=== PATIENT | female | born 1945 | race Caucasian/White ===

== ENCOUNTER → 2016-11-02 | Outpatient (CLI) | payer BC, OTHER ==
[~2016-11-02] MED LIST: ALLO300T2 PO; AMLO5TAB2 PO; ATEN50TA PO; CLON0.5T3 PO; COLC0.6T7 PO; CRAN1TAB PO; DICL100G13 TOP; ENAL10TA PO; ENXP100I SC; HYDR-3714 PO; HYDR1TAB PO; INDA1.25 PO; LEVO150T6 PO; LEVO200T30; LEVO75TA57 PO; MGX400T PO; OMEP-10 PO; OMEP20CA12 PO; ONDA-42 SL; OXYC-12 PO; POTA20PA3 PO; POTA40LI PO; SCR1T1 PO; Sodium Bicarbonate PO; TOLTA4 PO; VENL75CA55 PO; VNL75CCR; VRP240TCR PO; WARF10TA PO; WARF5TAB PO; WRF2.5T PO; WRF5T PO
--- NOTE | 2016-11-02 17:41 | Diagnostic Imaging Report ---
EXAMINATION: Two views of the right hip. INDICATION: Right hip pain. FINDINGS: No fracture, dislocation, or radiopaque foreign body seen. There are mild subchondral sclerotic changes and mild hip joint space narrowing noted. IMPRESSION: Izzj-ke-kdxnysjh right hip osteoarthritis. Dictated by: Dictated on workstation # [id number]
== END ==
LOC: RAD 16:19
PROVIDERS: ATTEND Family Medicine
DX: M25.551 Pain in right hip (principal)
CPT/HCPCS: 73502

== ENCOUNTER → 2016-12-02 | Outpatient (CLI) | payer BC, OTHER ==
--- NOTE | 2016-12-03 16:58 | Diagnostic Imaging Report ---
Bilateral screening mammogram The current study was also evaluated with a Computer Aided Detection (CAD) system. Indication: Screening. No current complaints stated on the questionnaire. COMPARISON: 04/19/15 Findings: The breasts are composed of scattered fibroglandular densities. Scattered benign-appearing calcifications seen. Allowing for technique and positional differences, no suspicious change is seen. IMPRESSION: No significant change. ACR BI-RADS Category 2: Benign findings. Result letter will be mailed to the patient. Note: At least 10% of breast cancer is not imaged by mammography. Dictated by: Dictated on workstation # [id number]
== END ==
LOC: RAD 10:23
PROVIDERS: ATTEND Family Medicine
DX: Z12.31 Encounter for screening mammogram for malignant neoplasm of breast (principal)
CPT/HCPCS: 77067

== ENCOUNTER → 2017-10-18 | Outpatient (CLI) | payer MEDICARE, OTHER ==
[~2017-10-18] MED LIST changes: +BARIUM SUSPENSION 2.1% (VANILLA SILQ) 450 ML PO ONE; +CATHETER FLUSH 10 ML SYR IV PRN; +IOHEXOL 350 MG/ML 100 ML (OMNIPAQUE 350) VIAL IV ONE; +NS 250 ML (IVPB) BAG IV ONE
[2017-10-18 12:23] LABS: CREATININE SERUM 0.96 MG/DL (0.60-1.30)
--- NOTE | 2017-10-18 13:18 | Diagnostic Imaging Report ---
PROCEDURE: CT abdomen and pelvis with contrast. TECHNIQUE: Multiple contiguous axial images were obtained through the abdomen and pelvis after administration of intravenous contrast. INDICATION: Right lower quadrant pain. COMPARISON: Comparison is made with prior CT from 08/08/2013. FINDINGS: Lung bases are clear. No discrete liver mass is identified. The gallbladder is unremarkable. The pancreas and spleen are unremarkable. No adrenal mass is detected. Upper pole left renal cyst appears stable. The aorta is nonaneurysmal. A large spigelian hernia in the right lower quadrant is again noted with fat and bowel loops extending into the subcutaneous tissues. Patient may have an ostomy as well at this location in which case this would represent a large peristomal hernia. The herniated bowel loops in the left lower quadrant noted on prior study are no longer appreciated. However, patient has developed a fluid collection in the left abdominal wall which appears mixed density. This is 7.5 cm transverse x 3. 6 cm AP. No gas within the collection is identified. Fluid collection is located near the site of previously noted spigelian hernia. No free fluid is seen. Bladder and uterus are unremarkable. No lymphadenopathy is seen. Postsurgical changes to the right hip are identified. IMPRESSION: 1. Right lower quadrant ostomy with multiple herniated bowel loops in the subcutaneous tissues, similar to prior CT from 08/08/2013. 2. Apparent surgical repair of the left lower quadrant spigelian hernia since exam from 2013. There is now circumscribed mixed-density fluid collection at the interface of the subcutaneous fat and abdominal wall musculature just lateral to the rectus muscle. This most likely represents postoperative hematoma/seroma. No internal gas is present. Remainder of the study is unremarkable. Dictated by: Dictated on workstation # [id number]
== END ==
LOC: RAD 11:50
PROVIDERS: ATTEND Family Medicine
DX: K46.9 Unspecified abdominal hernia without obstruction or gangrene (principal); Z93.8 Other artificial opening status; Z98.890 Other specified postprocedural states
CPT/HCPCS: 36415; 74177; 82565; 84520

== ENCOUNTER 2020-01-16 19:56 | Emergency (ER) | payer MEDICARE, OTHER ==
[~2020-01-16] VITALS: Ht 157 cm; Wt 95.3 kg
[~2020-01-16 19:56] MED LIST changes: -BARIUM SUSPENSION 2.1% (VANILLA SILQ) 450 ML PO ONE; -CATHETER FLUSH 10 ML SYR IV PRN; -IOHEXOL 350 MG/ML 100 ML (OMNIPAQUE 350) VIAL IV ONE; -NS 250 ML (IVPB) BAG IV ONE
--- NOTE | 2020-01-16 20:57 | ED Integumentary General ---
General Chief Complaint: Laceration Stated Complaint: R ARM LAC Source: patient Exam Limitations: no limitations History of Present Illness Date Seen by Provider: Jan 16, 2020 Time Seen by Provider: 20:56 Initial Comments 74-year-old female who presents to emergency room with complaints of a skin tear to her right dorsal surface of the forearm. She reports that she was walking out of her bathroom when she caught her arm on the door facing and caused a skin tea r around 1300 today. She states that she needs a tetanus shot. She reports cleaning the wound at the time of the injury. She has a 6 cm superficial U- shaped tear in the skin to her right forearm. Timing/Duration: this afternoon Associated Symptoms: denies symptoms Allergies and Home Medications Allergies Coded Allergies: No Known Drug Allergies (Unverified , 10/09/13) Home Medications Allopurinol 300 Mg Tab, 300 MG PO DAILY, (Reported) Clonazepam 0.5 Mg Tablet, 0.5 MG PO BID, (Reported) Cranberry Ext/C/L. Sporogenes 1 Each Tablet, 1 TAB PO DAILY, (Reported) Diclofenac Sod 100 Gm Gel, TOP DAILY PRN for PAIN, (Reported) APPLY TOPICALLY NEEDED FOR PAIN Levothyroxine Sodium 150 Mcg Tablet, 150 MCG PO DAILY, (Reported) Magnesium Oxide 400 Mg Tab, 800 MG PO TIDWM Prescribed by: BOBBY ZULTEA on 10/12/13 0808 Ondansetron Hcl 4 Mg Tab, 4 MG SL Q4H PRN for na FOR NAUSEA AND VOMITING Prescribed by: BOBBY ZULETA on 10/12/13 0808 Potassium Chloride 40 Meq/15 Ml Liqd, 40 MEQ PO DAILY@0700 Prescribed by: BOBBY ZULETA on 10/12/13 0810 Sucralfate 1 Gm Tab, 1 GM PO BID Prescribed by: BOBBY ZULETA on 10/12/13 0810 Tolterodine Tartrate 4 Mg Cap, 4 MG PO DAILY, (Reported) Venlafaxine Hcl 75 Mg Cap.sr.24h, 75 MG PO DAILY, (Reported) Verapamil Hcl 240 Mg Tab, 120 MG PO DAILY Prescribed by: BOBBY ZULETA on 10/12/13 0810 Warfarin Sod 5 Mg Tab, 5 MG PO SUN,MON,WED,FRI, (Reported) TAKES AT BEDTIME Warfarin Sodium 5 Mg Tablet, 2.5 MG PO TUES,THURS,SAT, (Reported) TAKES 1/2 (5MG) TABLET TAKES AT BEDTIME [Sodium Bicarbonate] 650 MG TAB, 1,300 MG PO BID Prescribed by: BOBBY ZULETA on 10/12/13 0810 Past Jsiroxp-Kzcoko-Zxzyse Hx Patient Social History Recent Foreign Travel: No Contact w/Someone Who Travel: No Immunizations Up To Date Date of Influenza Vaccine: Apr 21, 2013 Past Medical History Reproductive Disorders: No Female Reproductive Disorders: Denies Sexually Transmitted Disease: No HIV/AIDS: No Abdominal Hernia, Colitis Hypothyroidsim Loss of Vision: Denies Hearing Impairment: Denies Skin Adverse Reaction/Blood Tranf: No Physical Exam Vital Signs Capillary Refill : Progress/Results/Core Measures Results/Orders My Orders Orders - ANAHY MOSER DiphtDandre(Acell),Tet Adult (Boostrix (01/16/20 21:00) Departure Impression Primary Impression: Skin tear of forearm without complication Disposition: HOME, SELF-CARE Condition: Stable/Unchanged Departure-Patient Inst. Decision time for Depature: 20:58 Referrals: MEGAN MORRIS MD (PCP/Family) Primary Care Physician Patient Instructions: Wound Care Add. Discharge Instructions: Leave the dressing in place for 24 hours. Change the dressing daily after this. Watch for signs of infection such as increased redness, swelling, drainage, pain. Return back to the emergency room for worsening symptoms or concerns as needed. Follow-up primary care provider within 1 week for recheck. All discharge instructions reviewed with patient and/or family. Voiced understanding. ANAHY MOSER Jan 16, 2020 20:57
[2020-01-16] MEDS ORDERED: TETANUS,DIPTH,PERTUSS P/F (BOOSTRIX) 0.5 ML VIAL IM ONE (21:00)
[2020-01-16 21:15] VITALS: BP 141/82
--- OUTSIDE RECORDS SUMMARY | 2020-01-16 22:25 | XMS REPORT | Clinical Summary ---
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 Last Filed Vital Signs Not on file Plan of Treatment Health Maintenance Due Date Last Done Comments Hepatitis C Screen 1945 Medicare Annual Wellness 1945 Td # 1945 Colorectal Screening via 1995 Colonoscopy Mammogram Screening 1995 Zoster Vaccine# (1 of 2) 1995 Depression Screening 2010 PHQ-9 # Fall Risk Assessment # 2010 Osteoporosis Screening 2010 Pneumococcal Vaccine: 65+ 2010 04/07/1995 Years (1 of 1 - PPSV23) Influenza Vaccine (#1) 2020 03/11/2016, 03/16/2013, 04/11/2012, Additional history exists Results Not on filefrom Last 3 Months Insurance Type Payer Benefit Subscriber ID Effective Phone Address Plan / Dates Group Medicare MEDICARE MEDICARE xxxxxxxxxxx 2010- [place] PART A B [place], [place] COMMERCIAL-NONCONTRACTED BANKERS xxxxxxxxxx 2016- [employer] Present MEDICARE SUPPLEMENT Advance Directives For more information, please contact: [phone] 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
--- OUTSIDE RECORDS SUMMARY | 2020-01-16 22:25 | XMS REPORT | Encounter Summary ---
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 [place] [facility] [place] [address] [place] [address] Closed Radiology Diagnoses Right hip pain P rocedures CT Guided Sacroiliac joint injection right Reason for Visit * MRI/CAT/PET Scan (Routine) Referred By Contact Referred To Contact Status Reason Specialty Diagnoses / [place] [address] [place] [address] [facility] [place] [address] [place] [address] Closed Radiology Diagnoses Right hip pain P rocedures CT Guided Sacroiliac joint injection right Encounter Details Care Team Description [place] [address] [place] [address] [phone] Right hip pain 06/27/2018 [facility] [address] [place] [address] Social History Date Tobacco Use Types Packs/Day Years Used Never Assessed Sex Assigned at Date Recorded Not on file Industry Job Start Date Occupation Not on file Not on file Not on file Travel End Travel History Travel Start No recent travel history available. documented as of this encounter Procedure Notes * Negar Crum MD - 06/27/2018 10:05 AM BUGGY LADLE TENDER Procedures Procedure: CT guided R SI joint injection Interventional Radiologist: Negar Pyle EBL: Minimal Findings: Report to follow. Kenolog and Bupiv injected as ordered. Specimen: NA Diagnosis: Pain Electronically signed by Negar Crum MD 06/27/2018 10:05 AM Y LADLE TENDER documented in this encounter Plan of Treatment Not on filedocumented as of this encounter Procedures Comments Procedure Name Priority Date/Time Associated Diag nosis CT GUIDED SACROILIAC Routine 06/27/2018 Right hip pain JOINT INJECTION RIGHT 9:53 AM BUGGY LADLE TENDER documented in this encounter Results * CT Guided Sacroiliac joint injection right (06/27/2018 9:53 AM BUGGY LADLE TENDER) Specimen Impressions Performed At Successful CT-guided right sacroiliac joint injection as SHANDA described above. One or more of the following dose reduc tion techniques were utilized: *Automated exposure control (AEC) *Adjustment of mA and/or kV according t o patient size -Use of iterative reconstruction techni que -CT scan done according to destiney TOSCANO FARZANA/IMAGE GENTLY Narrative Performed At Patient: KAT MIRANDA Sex#: F # [id number] [place]#: [id number] Location: [facility] CT Procedure Requested: [id number] CT GUIDE D SACROILIAC JOINT INJECTION RIGHT Reason for Exam: Right hip pain Exam Ordered: 06/27/2018 090 9 Exam Date/Time: 06/27/201853 Begin exam date/time: 06/27/2018912 Reading Site: [facility] EXAMINATION: CT GUIDED SACROILIAC VIC NT INJECTION RIGHT CLINICAL INFORMATION: Right hip pain After written informed consent was obta ined, the patient was prepped and draped in a sterile manner. 1% lidocain e was utilized. With the patient prone using CT guidance, a 22-gauge nee dle was advanced into the posterior inferior right sacroiliac vic nt. 40 mg of Kenalog followed by 5 cc of .25% bupivacaine was injected. Some bupivacaine was injected as the needle was withdrawn. Procedure Note Interface, Rad Results In - 06/27/2018 4:20 PM BUGGY LADLE TENDER Patient: KAT MIRANDA Sex#: F # 1945 [place]#: [id number] Location: [facility] CT Procedure Requested: [id number] CT GUIDED SACROILIAC JOINT INJECTION RIGHT Reason for Exam: Right hip pain Exam Ordered: 06/27/2018908 Exam Date/Time: 06/27/2018952 Begin exam date/time: 06/27/2018912 Reading Site: [facility] EXAMINATION: CT GUIDED SACROILIAC JOINT INJECTION RIGHT CLINICAL INFORMATION: Right hip pain After written informed consent was obtained, the patient was prepped and draped in a sterile manner. 1% lidocaine was utilized. With the patient prone using CT guidance, a 22-gauge needle was advanced into the posterior inferior right sacroiliac joint. 40 mg of Kenalog followed by 5 cc of .25% bupivacaine was injected. S ome bupivacaine was injected as the needle was withdrawn. IMPRESSION Successful CT-guided right sacroiliac joint injection as described above. One or more of the following dose reduction techniques were utilized: *Automated exposure control (AEC) *Adjustment of mA and/or kV according to patient size -Use of iterative reconstruction techniq ue -CT scan done according to [place], or BETH MACIAS/IMAGE GENTLY Performing Organization Address City/State/Zipcode [place] documented in this encounter Visit Diagnoses Diagnosis Right hip pain Pain in joint, pelvic region and thigh documented in this encounter Administered Medications Action Date Dose Rate Site Medication Order MAR Action 06/27/2018 9:49 AM BUGGY LADLE TENDER 4 mL bupivacaine (pf) (MARCAINE) 0.25 % (2.5 Given mg/mL) injection Intrapleural, Code/trauma/sedation medication, Starting 06/27/18 at 0949 06/27/2018 9:37 AM BUGGY LADLE TENDER 8 mL Operativ e Site lidocaine (pf) (XYLOCAINE-MPF) 20 mg/mL Given (2 %) injection Code/trauma/sedation medication, Starting Wed06/27/18 at 0937 06/27/2018 9:49 AM BUGGY LADLE TENDER 40 mg triamcinolone acetonide (KENALOG-40) 40 Given mg/mL injection Code/trauma/sedation medication, Starting Wed06/27/18 at 0949, Imaging documented in this encounter
--- OUTSIDE RECORDS SUMMARY | 2020-01-16 22:25 | XMS REPORT | Clinical Summary ---
Author Author [facility] Organization [facility] Address Unknown Phone Unavailable Care Team Providers Care Pharmacy Technician Name Role Phone Sarai Almanza MD PCP Naomie Palacios [place] [id number] Edi Suero [place] [id number] Source Comments Some departments are not documenting in the electronic medical record. If you d o not see the information that you expected, contact Release of Information in [facility] [employer] Information Management department at [phone] for further assistan ce in locating additional records.[facility] Allergies No Known Allergies Medications End Date Status Medication Sig Dispensed Refills Start Date Active tolterodine LA(+) (DETROL Take 4 mg by 0 LA) 4 mg capsule mouth daily. Active clonazePAM(+) (KLONOPIN) Take 0.5 mg 0 0.5 mg rapid dissolve by mouth tablet twice daily. Active venlafaxine XR (EFFEXOR Take 75 mg by 0 XR) 75 mg capsule mouth daily. Active omeprazole DR(+) Take 20 mg by 0 (PRILOSEC) 20 mg capsule mouth daily. Active allopurinol (ZYLOPRIM) Take 300 mg 0 300 mg tablet by mouth daily. Active levothyroxine (SYNTHROID) Take 150 mcg 0 150 mcg tablet by mouth daily. Active atenolol (TENORMIN) 50 mg Take 50 mg by 0 tablet mouth daily. Active warfarin (COUMADIN) 5 mg Take 5 mg by 0 tablet mouth daily. Active verapamil SR (CALAN-SR) Take 240 mg 0 240 mg tablet by mouth daily. Active sodium bicarbonate 650 mg Take 1,300 mg 0 tablet by mouth twice daily. Active magnesium oxide (MAG-OX) Take 800 mg 0 400 mg tablet by mouth three times daily. Active sucralfate (CARAFATE) 1 Take 1 g by 0 gram tablet mouth twice daily. Active clopiDOGrel (PLAVIX) 75 Take 75 mg by 0 mg tablet mouth daily. Active atorvastatin (LIPITOR) 40 Take 40 mg by 0 mg tablet mouth daily. Active potassium chloride SR Take 30 mEq 0 (K-DUR) 10 mEq tablet by mouth daily. Active aspirin EC 81 mg tablet Take 81 mg by 0 mouth daily. Active Problems Problem Noted Date Peristomal hernia 12/06/2017 Overview: History of UC - Partial colectomy 1983 - Completion colectomy with end il eostomy 2013 - Abdominal hernia repair with bio logic mesh at site of prior LLQ end colostomy 10/18/17 CT Abd/Pelvis with left lower a bdominal wall cystic structure at site of prior colostomy hernia repair 2 014 with biologic mesh. 6cm x 6cm circumferential RLQ mesenteric defect w ith herniated mesentery and loops of small intestine no signs of bowel thick ening. Hernia defect stable in size from prior 2013 scan 12/06/17: Initial evaluation with Dr. Sandy thao [id number] para-ileostomy RLQ abdominal hernia present for >10 years, asymptomatic but progressively increasing in size, no history of bowel obstruction. BMI 38.8 plan for 40lb weight loss f/u 6 months L ast Assessment & Plan: 72 year old female with morbid obesity, factor V leiden with history of DVTs on warfarin, CAD s/p stents x2 201 4 on ASA/Plavix, GERD, HTN, history of UC s/p partial colectomy with end il eostomy , completion colectomy 1983 with end ileostomy and asymptomati c parastomal hernia repair Discussed ventral abdominal hernia repa ir and reviewed images in detail with patient. Discussed pre-operative m odifiable risk factors primarily BMI in Ms. Miranda's case, with goal pre- operative BMI of ~30 which would correlate with a weight of approximatel y 180lbs Plan: - RTC 6 months - Higher chance of operative success wi th parastomal hernia repair with decrease in BMI - 40lb weight loss goal with goal weigh t of ~180/BMI ~30 Ulcerative colitis 09/14/2013 Mediastinal mass 09/14/2013 Factor 5 Leiden mutation, heterozygous 09/14/2013 Obesity (BMI 30-39.9) 09/14/2013 Hypertension 09/14/2013 Hypothyroid 09/14/2013 Altered bowel elimination due to intestinal ostomy 0 09/14/2013 Warfarin anticoagulation 09/14/2013 Family History Medical History Relation Name Comments Heart Attack Father Asthma Neg Hx Blood Clots Neg Hx COPD Neg Hx Cancer Neg Hx Coronary Artery Disease Neg Hx Cystic Fibrosis Neg Hx DVT Neg Hx Pulmonary Embolism Neg Hx Pulmonary Fibrosis Neg Hx Pulmonary HTN Neg Hx Relation Name Status Comments Father Social History Date Tobacco Use Types Packs/Day Years Used Never Smoker Smokeless Tobacco: Never Used Drinks/Week oz/Week Comments Alcohol Use No Sex Assigned at Date Recorded Not on file Industry Job Start Date Occupation Not on file Not on file Not on file Travel End Travel History Travel Start No recent travel history available. Last Filed Vital Signs Reading Time Taken Comments Vital Sign 145/65 12/06/2017 8:08 AM CDT Blood Pressure 75 12/06/2017 8:08 AM CDT Pulse 36.5 C (97.7 F) 12/06/2017 8:08 AM CDT Temperature 14 12/06/2017 8:08 AM CDT Respiratory Rate 98% 09/18/2014 3:28 PM CDT RA Oxygen Saturation - - Inhaled Oxygen Concentration 103.1 kg (227 lb 3.2 oz) 12/06/2017 8:08 AM CDT Weight 163 cm (5' 4.17") 12/06/2017 8:08 AM CDT Height 38.79 12/06/2017 8:08 AM CDT Body Mass Index Plan of Treatment Health Maintenance Due Date Last Done Comments MEDICARE ANNUAL WELLNESS 1945 VISIT DTAP/TDAP VACCINES (1 - 1963 Tdap) HEPATITIS C SCREENING 1963 PHYSICAL (COMPREHENSIVE) 1963 EXAM BREAST CANCER SCREENING 1985 COLORECTAL CANCER 1995 SCREENING SHINGLES RECOMBINANT 1995 VACCINE (1 of 2) OSTEOPOROSIS 2010 SCREENING/MONITORING PNEUMONIA (PPSV23) 2010 VACCINE (1 of 1 - PPSV23) INFLUENZA VACCINE 03/21/2020 04/11/2012, 04/09/2011, 04/10/2010, Additional history exists Results Not on filefrom Last 3 Months Insurance Type Payer Benefit Subscriber ID Effective Phone Address Plan / Dates Group Medicare MEDICARE MEDICARE xxxxxxxxxx 2010- PART A AND Present B Indemnity [employer] xxxxxxxxxx [phone] FIDELITY Present [id number] Advance Directives 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
--- OUTSIDE RECORDS SUMMARY | 2020-01-16 22:27 | XMS REPORT | CCD ---
Author Author Kat Almanza Organization Sarai Almanza MD, 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 Name Role Phone PP Unavailable CCM Unavailable Summary Purpose Interface Exchange Insurance Providers Payer name Policy type / Coverage type Covered republican ID Effective Begin Date Effective End Date [place]PS Medicare Part B Medicare Part B [id number] 2017 Unknown [place] Medicare Part B [id number] 2017 Unknown Family history Father Diagnosis Age At Onset Hyperlipidemia Unknown Heart Attack Unknown Mother Diagnosis Age At Onset Arthritis Unknown Social History Social History Element Codes Description Effective Dates Marital status Unknown M arried Nathan 09/30/2016 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 Number of children Unknown 3 01/22/[address]: 901288368 Never smoker 01/22/[address]: 335712839 Never drinks alcohol 01/22/2015 Allergies, Adverse Reactions, Alerts Substance Reaction Codes Entered Date Inactivated Date Status * NO KNOWN DRUG ORIN RGIES Unknown 01/22/2015 No Inactive Date Active Past Medical History Illness Codes Condition Status Onset Date Resolved Date Mixed hyperlipidemia ICD-9: 272.4 ICD-10: E78.2 Active 06/09/2015 Unknown Hypothyroidism, unsp ecified ICD-9: 244.9 ICD-10: E03.9 Active 05/27/2017 Unknown 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 ICD-9: V58.61 ICD-10: Z79.01 Active 05/27/2017 Unknown Other acute sinusitis ICD-9: 461.8 ICD-10: J01.80 Active 09/02/2018 Unknown Other allergic rhinitis ICD-9: 477.8 ICD-10: J30.89 Active 04/01/2016 Unknown Essential (primary) hypertension ICD-9: 401.9 ICD-10: I10 Active 06/07/2016 Unknown Impaired fasting glu cose ICD-9: 790.21 ICD-10: R73.01 Active 05/27/2017 Unknown Gastro-esophageal re flux disease without esophagitis ICD-9: 530.81 ICD-10: K21.9 Active 01/04/2018 Unknown Localized edema ICD-9: 782.3 ICD-10: R60.0 Active 06/09/2015 Unknown Incisional hernia wi thout obstruction or 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: K43.2 Active 09/23/2017 Unknown Right lower quadrant pain ICD-9: 789.03 ICD-10: R10.31 Active 09/23/2017 Unknown Dysuria ICD-9: 788.1 ICD-10: R30.0 Active 03/05/2017 Unknown Pain in right hip ICD-9: 719.45 ICD-10: M25.551 Active 11/02/2016 Unknown Hyperglycemia, unspe cified ICD-9: 790.29 ICD-10: R73.9 Active 06/10/2015 Unknown Personal history of other endocrine, nutritional and metabolic disease ICD-9: V12.29 ICD-10: Z86.39 Active 09/18/2016 Unknown Pain in joints of le ft hand ICD-9: 719.44 ICD-10: M25.542 Active 08/20/2016 Unknown Pain in joints of ri ght hand ICD-9: 719.44 ICD-10: M25.541 Active 08/20/2016 Unknown Other fatigue ICD-9: 780.79 ICD-10: R53.83 Active 08/20/2016 Unknown Other assisted (cur rent) drug therapy ICD-9: V58.69 ICD-10: Z79.899 Active 06/07/2016 Unknown Tinnitus, bilateral ICD- 9: 388.31 ICD-10: H93.13 Active 06/07/2016 Unknown Acute laryngopharyng itis ICD-9: 465.0 ICD-10: J06.0 Active 04/01/2016 Unknown Left upper quadrant pain ICD-9: 789.02 ICD-10: R10.12 Active 01/13/2016 Unknown Body mass index (BMI ) 40.0-44.9, adult ICD-9: V85.41 ICD-10: Z68.41 Active 10/01/2015 Unknown Pain in left shoulder ICD-9: 719.41 ICD-10: M25.512 Active 10/01/2015 Unknown Pain in left leg ICD-9: 729.5 ICD-10: M79.605 Active 07/14/2015 Unknown Pain in right shoulder ICD-9: 719.41 ICD-10: M25.511 Active 06/09/2015 Unknown Hyperlipidemia Unknown Active 01/22/2015 Unknow n Hypertension Unknown Active 01/22/2015 Unknow n Hypothryroidism Unknown Active 01/22/2015 Unknow n ENCNTR LONG-RX USE NEC ICD-9: V58.69 Active 01/21/2015 Unknown ESSENTIAL HYPERTENSION ICD-9: 401.9 Active 01/21/2015 Unknown HYPERLIPIDEMIA ICD-9: 272.4 Active 01/21/2015 Unknown HYPOTHYROIDISM ICD-9: 244.9 Active 01/21/2015 Unknown Snoring ICD-9: 786.09 Active 01/21/2015 Unknow n Status post gastric surgery ICD-9: V45.89 Active 08/2014 Unknown Vitamin B12 deficiency ICD-9: 266.2 Active 01/21/2015 Unknown Problems Condition Codes Effectiv e Dates Condition Status Mixed hyperlipidemia ICD-9: 272.4 ICD-10: E78.2 06/09/2015 Active Hypothyroidism, unsp ecified ICD-9: 244.9 ICD-10: E03.9 05/27/2017 Active 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 ICD-9: V58.61 ICD-10: Z79.01 05/27/2017 Active Other acute sinusitis ICD-9: 461.8 ICD-10: J01.80 09/02/2018 Active Other allergic rhinitis ICD-9: 477.8 ICD-10: J30.89 04/01/2016 Active Essential (primary) hypertension ICD-9: 401.9 ICD-10: I10 06/07/2016 Active Impaired fasting glu cose ICD-9: 790.21 ICD-10: R73.01 05/27/2017 Active Gastro-esophageal re flux disease without esophagitis ICD-9: 530.81 ICD-10: K21.9 01/04/2018 Active Localized edema ICD-9: 782.3 ICD-10: R60.0 06/09/2015 Active Incisional hernia wi thout obstruction or 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: K43.2 09/23/2017 Active Right lower quadrant pain ICD-9: 789.03 ICD-10: R10.31 09/23/2017 Active Dysuria ICD-9: 788.1 ICD-10: R30.0 03/05/2017 Active Pain in right hip ICD-9: 719.45 ICD-10: M25.551 11/02/2016 Active Hyperglycemia, unspe cified ICD-9: 790.29 ICD-10: R73.9 06/10/2015 Active Personal history of other endocrine, nutritional and metabolic disease ICD-9: V12.29 ICD-10: Z86.39 09/18/2016 Active Pain in joints of le ft hand ICD-9: 719.44 ICD-10: M25.542 08/20/2016 Active Pain in joints of ri ght hand ICD-9: 719.44 ICD-10: M25.541 08/20/2016 Active Other fatigue ICD-9: 780.79 ICD-10: R53.83 08/20/2016 Active Other assisted (cur rent) drug therapy ICD-9: V58.69 ICD-10: Z79.899 06/07/2016 Active Tinnitus, bilateral ICD- 9: 388.31 ICD-10: H93.13 06/07/2016 Active Acute laryngopharyng itis ICD-9: 465.0 ICD-10: J06.0 04/01/2016 Active Left upper quadrant pain ICD-9: 789.02 ICD-10: R10.12 01/13/2016 Active Body mass index (BMI ) 40.0-44.9, adult ICD-9: V85.41 ICD-10: Z68.41 10/01/2015 Active Pain in left shoulder ICD-9: 719.41 ICD-10: M25.512 10/01/2015 Active Pain in left leg ICD-9: 729.5 ICD-10: M79.605 07/14/2015 Active Pain in right shoulder ICD-9: 719.41 ICD-10: M25.511 06/09/2015 Active Hyperlipidemia Unknown 01/22/2015 Active Hypertension Unknown 01/22/2015 Active Hypothryroidism Unknown 01/22/2015 Active ENCNTR LONG-RX USE NEC ICD-9: V58.69 01/21/2015 Active ESSENTIAL HYPERTENSION ICD-9: 401.9 01/21/2015 Active HYPERLIPIDEMIA ICD-9: 272.4 01/21/2015 Active HYPOTHYROIDISM ICD-9: 244.9 01/21/2015 Active Snoring ICD-9: 786.09 01/21/2015 Active Status post gastric surgery ICD-9: V45.89 01/21/2015 Active Vitamin B12 deficiency ICD-9: 266.2 01/21/2015 Active Medications Medication Codes Instruc tions Start Date Stop Date Sta tus Fill Instructions potassium chloride E R 20 mEq tablet,extended release RxNorm: 737195 Tablet(s) TAKE ONE TABLET BY MOUTH DAILY 03/07/2019 07/04/2019 Active Carafate 1 gram tablet RxNorm: 100338 TAKE ONE TABLET BY MOUTH BEFORE MEALS AN D AT BEDTIME 03/02/2019 03/27/2019 Active Plavix 75 mg tablet RxNorm: 139066 TAKE ONE TABLET BY MOUTH DAILY 02/24/2019 05/18/2020 Ac tive Coumadin 4 mg tablet RxNorm: 720316 TAKE TWO TABLETS BY MOUTH DAILY 02/13/2019 08/11/2019 Ac tive potassium chloride E R 20 mEq tablet,extended release RxNorm: 088314 Tablet(s) TAKE ONE TABLET BY MOUTH DAILY 02/13/2019 03/06/2019 Inactive omeprazole 20 mg cap sean,delayed release RxNorm: 253221 TAKE ONE CAPSULE BY M OUTH TWICE A DAY 02/03/2019 07/26/2020 Active sodium bicarbonate 6 50 mg tablet RxNorm: 166742 TAKE TWO TABLETS BY M OUTH TWICE A DAY 02/03/2019 07/02/2019 Ac tive potassium chloride E R 20 mEq tablet,extended release RxNorm: 845153 TAKE ONE TABLET BY MOUTH DAILY 01/19/2019 02/12/2019 Inactive Carafate 1 gram tablet RxNorm: 131425 TAKE ONE TABLET BY MOUTH BEFORE MEALS AN D AT BEDTIME 12/30/2018 02/19/2019 Inactive Carafate 1 gram tablet RxNorm: 182445 TAKE ONE TABLET BY MOUTH BEFORE MEALS AN D AT BEDTIME 12/12/2018 12/29/2018 Inactive mupirocin 2 % topica l ointment RxNorm: 060949 1 Application TOP TID 12/08/2018 12/17/2018 Inactive mupirocin 2 % topica l ointment RxNorm: 820071 1 Application TOP TID 12/08/2018 12/07/2018 Inactive allopurinol 300 mg t ablet RxNorm: 529112 TAKE ONE TABLET BY MO UTH DAILY 11/22/2018 03/21/2019 Ac tive clonazepam 0.5 mg ta blet RxNorm: 970548 1 Tablet(s) PO BID 11/16/2018 04/14/2019 Active Carafate 1 gram tablet RxNorm: 544052 TAKE ONE TABLET BY MOUTH BEFORE MEALS AN D AT BEDTIME 11/15/2018 12/10/2018 Inactive atenolol 100 mg tablet RxNorm: 710121 TAKE ONE TABLET BY MOUTH DAILY 10/24/2018 05/21/2019 Ac tive potassium chloride E R 20 mEq tablet,extended release RxNorm: 469524 2 Tablet(s) PO daily 10/18/2018 03/06/2019 Inactive potassium chloride E R 20 mEq tablet,extended release RxNorm: 628868 1 Tablet(s) PO daily 10/03/2018 10/17/2018 Inactive Carafate 1 gram tablet RxNorm: 252860 TAKE ONE TABLET BY MOUTH BEFORE MEALS AN D AT BEDTIME 09/26/2018 11/14/2018 Inactive prednisone 10 mg tablet RxNorm: 450680 Tablet(s) PO 09/02/2018 No Stop Date Active 60,60,50,50,40,40,30,30,20,20,10,10 Synthroid 125 mcg ta blet RxNorm: 892235 1 Tablet(s) PO daily 09/02/2018 08/27/2019 Active potassium chloride E R 20 mEq tablet,extended release RxNorm: 068897 1 Tablet(s) PO daily 09/02/2018 09/01/2018 Inactive potassium chloride E R 20 mEq tablet,extended release RxNorm: 806024 1 Tablet(s) PO daily 09/02/2018 10/02/2018 Inactive Plavix 75 mg tablet RxNorm: 688495 TAKE ONE TABLET BY MOUTH DAILY 09/02/2018 02/23/2019 In active Synthroid 125 mcg ta blet RxNorm: 548792 1 Tablet(s) PO daily 09/02/2018 09/01/2018 Inactive Keflex 500 mg capsule RxNorm: 636275 1 Capsule(s) PO TID 09/02/2018 09/08/2018 Inactive Kenalog 40 mg/mL maxine pension for injection RxNorm: 5765240 Milliliter(s) Inj 09/02/2018 09/02/2018 In active Lipitor 40 mg tablet RxNorm: 462640 TAKE ONE TABLET BY MOUTH DAILY 07/29/2018 07/23/2019 Ac tive Coumadin 1 mg tablet RxNorm: 658947 TAKE ONE TABLET BY MOUTH DAILY 07/29/2018 10/26/2018 In active Carafate 1 gram tablet RxNorm: 664368 TAKE ONE TABLET BY MOUTH BEFORE MEALS AN D AT BEDTIME 07/28/2018 09/17/2018 Inactive Coumadin 4 mg tablet RxNorm: 056745 2 Tablet(s) daily 07/11/2018 02/05/2019 Inactive Gene andre For:COUMADIN 4MG 07/22/2017 8:58:26 AM Coumadin 5 mg tablet RxNorm: 921987 Tablet(s) TAKE 1 TABLET BY MOUTH DIRE CTED 07/08/2018 01/03/2019 Inactive Generic For:COUMADIN 5MG TAB 03/21/2018 9:13:00 AM Coumadin 4 mg tablet RxNorm: 560014 Tablet(s) TAKE 1 TABLET BY MOUTH THREE T IMES PER WEEK (WEDNESDAY, WEDNESDAY AND WEDNESDAY) 07/08/2018 07/10/2018 Inactive Gene andre For:COUMADIN 4MG 07/22/2017 8:58:26 AM Coumadin 1 mg tablet RxNorm: 010234 1 Tablet(s) PO daily 07/08/2018 08/06/2018 Inactive venlafaxine ER 75 mg capsule,extended release 24 hr RxNorm: 496322 Capsule(s) TAKE 1 CAPSULE BY MOUTH ONCE DAILY 06/23/2018 06/17/2019 Active Generic For:*EFFEXOR XR 75MG 06/19/2017 12:23:45 PM sodium bicarbonate 6 50 mg tablet RxNorm: 997591 Tablet(s) TAKE 2 TABL ETS BY MOUTH TWICE DAILY 06/23/2018 12/19/2018 Inactive 12/20/2017 9:10:59 AM Coumadin 1 mg tablet RxNorm: 665429 1 Tablet(s) PO daily 06/17/2018 07/07/2018 Inactive Coumadin 1 mg tablet RxNorm: 440966 1 Tablet(s) PO daily 06/17/2018 06/16/2018 Inactive clonazepam 0.5 mg ta blet RxNorm: 216931 1 Tablet(s) PO BID 06/08/2018 11/03/2018 Inactive spironolactone 25 mg tablet RxNorm: 558528 TAKE 1 TABLET BY MOUT H EVERY DAY 05/18/2018 05/12/2019 Ac tive Generic For:*ALDACTONE 25MG 05/18/2018 8:57:50 AM Carafate 1 gram tablet RxNorm: 919609 TAKE ONE TABLET BY MOUTH BEFORE MEALS AN D AT BEDTIME 05/18/2018 07/12/2018 Inactive Generic For:CARAFATE 1GM 1 07/18/2017 8:38:28 AM Synthroid 137 mcg ta blet RxNorm: 546651 TAKE 1 TABLET BY MOUT H ONCE DAILY 05/18/2018 08/30/2018 In active Generic For:SYNTHROID 137MCG TAB 2017 8:57:54 AM allopurinol 300 mg t ablet RxNorm: 714154 TAKE 1 TABLET BY MOUT H ONCE DAILY. 04/18/2018 10/14/2018 In active Generic For:ZYLOPRIM 300 MG TABLET 03/22 9:13:47 AM Lasix 20 mg tablet RxNorm: 534537 TAKE ONE TABLET BY MOUTH DAILY 04/18/2018 08/15/2018 In active Generic For:LASIX 20MG 04/18/2018 9:13: 50 AM Carafate 1 gram tablet RxNorm: 560901 TAKE ONE TABLET BY MOUTH BEFORE MEALS AN D AT BEDTIME 04/18/2018 05/17/2018 Inactive Generic For:CARAFATE 1GM 1 9:32:51 AM Coumadin 5 mg tablet RxNorm: 930976 TAKE 1 TABLET BY MOUTH DIRECTED 03/21/2018 07/07/2018 In active Generic For:COUMADIN 5MG TAB 03/21/2018 9:13:00 AM Carafate 1 gram tablet RxNorm: 195826 TAKE ONE TABLET BY MOUTH BEFORE MEALS AN D AT BEDTIME 03/21/2018 04/17/2018 Inactive Generic For:CARAFATE 1GM 1 9:14:24 AM Carafate 1 gram tablet RxNorm: 243765 1 Tablet(s) PO AC & HS 02/17/2018 03/20/2018 Inactive atenolol 100 mg tablet RxNorm: 513185 1 Tablet(s) PO daily 02/04/2018 09/01/2018 Inactive atenolol 50 mg tablet RxNorm: 465062 1 Tablet(s) PO daily 02/03/2018 02/03/2018 Inactive omeprazole 20 mg cap sean,delayed release RxNorm: 282120 1 Capsule(s) BID 01/21/2018 01/15/2019 In active Generic For:PRILOSEC 20MG 07/22/2017 8:5 8:20 AM Carafate 1 gram tablet RxNorm: 223137 1 Tablet(s) PO AC & HS 01/21/2018 02/16/2018 Inactive Carafate 1 gram tablet RxNorm: 139219 1 Tablet(s) PO AC & HS 01/18/2018 01/20/2018 Inactive Carafate 1 gram tablet RxNorm: 128806 1 Tablet(s) PO AC & HS 01/18/2018 02/27/2018 Inactive Carafate 1 gram tablet RxNorm: 367770 1 Tablet(s) PO AC & HS TAKE ONE TABLET B Y MOUTH TWICE DAILY 01/18/2018 05/17/2018 Inactive Generic For:CARAFATE 1GM 0 12/20/2017 9:10:56 AM omeprazole 20 mg cap sean,delayed release RxNorm: 412435 Capsule(s) TAKE 1 CAP SEAN BY MOUTH EVERY DAY 01/17/2018 01/20/2018 Inactive Generic For:PRILOSEC 20MG 0 07/22/2017 8:58:20 AM omeprazole 20 mg cap sean,delayed release RxNorm: 978421 Capsule(s) TAKE 1 CAP SEAN BY MOUTH EVERY DAY 01/14/2018 01/16/2018 Inactive Generic For:PRILOSEC 20MG 07/22/2017 8:58:20 AM clonazepam 0.5 mg ta blet RxNorm: 402337 1 Tablet(s) PO BID 01/07/2018 06/05/2018 Inactive Plavix 75 mg tablet RxNorm: 089646 1 Tablet(s) PO daily 01/07/2018 07/05/2018 Inactive Carafate 1 gram tablet RxNorm: 873114 1 Tablet(s) PO AC & HS 01/04/2018 01/17/2018 Inactive Lasix 20 mg tablet RxNorm: 119309 TAKE ONE TABLET BY MOUTH DAILY 12/20/2017 04/17/2018 In active Generic For:LASIX 20MG 12/20/2017 9:11: 03 AM sodium bicarbonate 6 50 mg tablet RxNorm: 074453 TAKE 2 TABLETS BY JAVON TH TWICE DAILY 12/20/2017 06/17/2018 In active 12/20/2017 9:10:59 AM Carafate 1 gram tablet RxNorm: 206417 TAKE ONE TABLET BY MOUTH TWICE DAILY 12/20/2017 01/17/2018 In active Generic For:CARAFATE 1GM 12/20/2017 9:1 0:56 AM Synthroid 137 mcg ta blet RxNorm: 587001 TAKE 1 TABLET BY MOUT H ONCE DAILY 11/19/2017 05/17/2018 In active Generic For:SYNTHROID 137MCG TAB 2017 8:58:04 AM Detrol LA 4 mg capsu le,extended release RxNorm: 957623 TAKE 1 CAPSULE BY JAVON TH ONCE DAILY 10/20/2017 04/13/2018 Inactive Generic For:DETROL LA 4MG C AP 10/20/2017 9:01:56 AM allopurinol 300 mg t ablet RxNorm: 836676 TAKE 1 TABLET BY MOUT H ONCE DAILY. 10/20/2017 04/17/2018 In active Generic For:ZYLOPRIM 300 MG TABLET 07/2017 9:01:59 AM Coumadin 5 mg tablet RxNorm: 041846 1 Tablet(s) PO UD 10/01/2017 03/20/2018 Inactive cyclobenzaprine 5 mg tablet RxNorm: 241056 1 Tablet(s) PO TID as needed myscle spasm 09/23/2017 10/12/2017 Inactive Lipitor 40 mg tablet RxNorm: 676718 TAKE 1 TABLET BY MOUTH ONCE DAILY 09/20/2017 07/28/2018 In active Generic For:LIPITOR 40MG 09/20/2017 8:5 6:04 AM atenolol 100 mg tablet RxNorm: 721736 1 Tablet(s) PO daily 08/30/2017 02/03/2018 Inactive atenolol 50 mg tablet RxNorm: 227623 1 Tablet(s) PO daily 08/30/2017 08/30/2017 Inactive Lovenox 30 mg/0.3 mL subcutaneous syringe RxNorm: 043441 0.3 Milliliter(s) SQ Q12H 08/24/2017 09/06/2017 In active Lasix 20 mg tablet RxNorm: 084075 TAKE ONE TABLET BY MOUTH DAILY 08/23/2017 12/19/2017 In active Generic For:LASIX 20MG 08/21/2017 9:04: 27 AM Synthroid 137 mcg ta blet RxNorm: 703462 TAKE 1 TABLET BY MOUT H ONCE DAILY 08/23/2017 11/18/2017 In active Generic For:SYNTHROID 137MCG TAB 2017 9:04:30 AM Lovenox 30 mg/0.3 mL subcutaneous syringe RxNorm: 546348 0.3 Milliliter(s) SQ Q12H 08/10/2017 08/23/2017 In active clonazepam 0.5 mg ta blet RxNorm: 191959 1 Tablet(s) PO BID 08/04/2017 12/30/2017 Inactive omeprazole 20 mg cap sean,delayed release RxNorm: 631501 TAKE 1 CAPSULE BY JAVON TH EVERY DAY 07/22/2017 01/13/2018 Inactive Generic For:PRILOSEC 20MG 07/22/2017 8: 58:20 AM Coumadin 4 mg tablet RxNorm: 092890 TAKE 1 TABLET BY MOUTH THREE TIMES PER [place] (WEDNESDAY, WEDNESDAY AND WEDNESDAY) 07/22/2017 10/03/2018 Inactive Generic For:COUMADIN 4MG 07/22/2017 8:58:26 AM Coumadin 4 mg tablet RxNorm: 363041 TAKE 1 TABLET BY MOUTH THREE TIMES PER [place] (WEDNESDAY, WEDNESDAY AND WEDNESDAY) 07/22/2017 02/16/2018 Inactive Generic For:COUMADIN 4MG 07/22/2017 8:58:26 AM sodium bicarbonate 6 50 mg tablet RxNorm: 052792 TAKE 2 TABLETS BY JAVON TH TWICE DAILY 06/22/2017 12/18/2017 In active 06/19/2017 12:23:30 PM venlafaxine ER 75 mg capsule,extended release 24 hr RxNorm: 030516 TAKE 1 CAPSULE BY MOUTH ONCE DAILY 06/22/2017 06/16/2018 Inactive Generic For:*EFFEXOR XR 75M G 06/19/2017 12:23:45 PM Coumadin 5 mg tablet RxNorm: 224225 1 Tablet(s) PO UD 06/01/2017 09/30/2017 Inactive Keflex 500 mg capsule RxNorm: 454770 1 Capsule(s) PO TID 05/27/2017 06/02/2017 Inactive Synthroid 137 mcg ta blet RxNorm: 202719 TAKE 1 TABLET BY MOUT H ONCE DAILY 05/24/2017 08/21/2017 In active Generic For:SYNTHROID 137MCG TAB 2016 8:55:59 AM Carafate 1 gram tablet RxNorm: 653531 TAKE ONE TABLET BY MOUTH TWICE DAILY 05/24/2017 12/19/2017 In active Generic For:CARAFATE 1GM 05/24/2017 8:5 5:54 AM spironolactone 25 mg tablet RxNorm: 756035 1 Tablet(s) PO daily 05/24/2017 05/17/2018 Inactive Detrol LA 4 mg capsu le,extended release RxNorm: 554091 1 Capsule(s) PO daily TAKE 1 CAPSULE BY MOUTH ONCE DAILY 05/10/2017 10/19/2017 Inactive Generic For:DETROL LA 4MG CAP 02/19/2017 2:36:00 PM Lasix 20 mg tablet RxNorm: 350596 TAKE ONE TABLET BY MOUTH DAILY 04/23/2017 08/20/2017 In active Generic For:LASIX 20MG 04/23/2017 9:04: 01 AM Coumadin 4 mg tablet RxNorm: 459479 TAKE 1 TABLET BY MOUTH THREE TIMES PER [place] (WEDNESDAY, WEDNESDAY AND WEDNESDAY) 04/23/2017 07/21/2017 Inactive Generic For:COUMADIN 4MG 04/23/2017 9:04:05 AM allopurinol 300 mg t ablet RxNorm: 599580 TAKE 1 TABLET BY MOUT H ONCE DAILY. 04/23/2017 10/19/2017 In active Generic For:ZYLOPRIM 300 MG TABLET 08/2016 9:03:57 AM potassium chloride 2 0 mEq/15 mL oral liquid RxNorm: 988420 Milliliter(s) 30 Milliliter(s) (40mEq) PO daily 03/24/2017 07/21/2017 Inactive Lovenox 30 mg/0.3 mL subcutaneous syringe RxNorm: 343819 0.3 Milliliter(s) SQ Q12H 03/22/2017 03/26/2017 In active Lovenox 30 mg/0.3 mL subcutaneous syringe RxNorm: 704506 0.3 Milliliter(s) SQ Q12H 03/19/2017 03/20/2017 In active Lovenox 30 mg/0.3 mL subcutaneous syringe RxNorm: 102691 0.3 Milliliter(s) SQ Q12H 03/16/2017 03/18/2017 In active clonazepam 0.5 mg ta blet RxNorm: 050559 1 Tablet(s) PO BID 03/02/2017 10/03/2018 Inactive Lovenox 30 mg/0.3 mL subcutaneous syringe RxNorm: 278770 1 injection SQ BID do NOT take the night time dose the day before surgery, or the morning dose the day of surgery 03/01/2017 03/07/2017 Inactive Lovenox 30 mg/0.3 mL subcutaneous syringe RxNorm: 458523 1 injection SQ BID 03/01/2017 02/28/2017 In active Detrol LA 4 mg capsu le,extended release RxNorm: 623728 TAKE 1 CAPSULE BY JAVON TH ONCE DAILY 02/19/2017 05/09/2017 Inactive Generic For:DETROL LA 4MG C AP 02/19/2017 2:36:00 PM hydrocodone 5 mg-humberto taminophen 325 mg tablet RxNorm: 130436 1-2 Tablet(s) PO Q6 P RN 02/04/2017 No Stop Date Active Zetia 10 mg tablet RxNorm: 516282 TAKE 1 TABLET BY MOUTH DAILY 01/25/2017 04/13/2018 Inactive 01/23/2017 9:03:48 AM omeprazole 20 mg cap sean,delayed release RxNorm: 421319 TAKE 1 CAPSULE BY JAVON TH EVERY DAY 01/25/2017 07/21/2017 Inactive Generic For:PRILOSEC 20MG 01/23/2017 9: 03:45 AM Coumadin 4 mg tablet RxNorm: 543792 TAKE 1 TABLET BY MOUTH THREE TIMES PER [place] (WEDNESDAY, WEDNESDAY AND WEDNESDAY) 01/25/2017 04/22/2017 Inactive Generic For:COUMADIN 4MG 01/23/2017 9:03:51 AM sodium bicarbonate 6 50 mg tablet RxNorm: 163279 TAKE 2 TABLETS BY JAVON TH TWICE DAILY 12/24/2016 06/21/2017 In active 12/24/2016 9:09:27 AM Lasix 20 mg tablet RxNorm: 046968 1 Tablet(s) PO daily 12/24/2016 04/22/2017 Inactive Synthroid 137 mcg ta blet RxNorm: 952237 TAKE 1 TABLET BY MOUT H ONCE DAILY 11/24/2016 05/22/2017 In active Generic For:SYNTHROID 137MCG TAB 2016 9:04:37 AM Coumadin 4 mg tablet RxNorm: 538317 TAKE 1 TABLET BY MOUTH THREE TIMES PER [place] (WEDNESDAY, WEDNESDAY AND WEDNESDAY) 11/24/2016 01/22/2017 Inactive Generic For:COUMADIN 4MG 11/24/2016 9:04:41 AM hydrocodone 5 mg-humberto taminophen 325 mg tablet RxNorm: 762082 1-2 Tablet(s) PO Q6 P RN 11/17/2016 02/03/2017 In active Carafate 1 gram tablet RxNorm: 112691 TAKE ONE TABLET BY MOUTH TWICE DAILY 10/27/2016 05/23/2017 In active Generic For:CARAFATE 1GM 10/26/2016 8:3 9:42 AM allopurinol 300 mg t ablet RxNorm: 545445 Tablet(s) TAKE 1 TABL ET BY MOUTH ONCE DAILY. 10/26/2016 04/22/2017 Inactive Lipitor 40 mg tablet RxNorm: 201439 1 Tablet(s) PO daily 09/25/2016 09/19/2017 Inactive Coumadin 4 mg tablet RxNorm: 291817 TAKE 1 TABLET BY MOUTH THREE TIMES PER [place] (WEDNESDAY, WEDNESDAY AND WEDNESDAY) 09/25/2016 11/23/2016 Inactive Generic For:COUMADIN 4MG 09/25/2016 8:55:58 AM Zetia 10 mg tablet RxNorm: 251770 1 Tablet(s) PO daily 09/25/2016 01/22/2017 Inactive gave 1 month of samples clonazepam 0.5 mg ta blet RxNorm: 263367 1 Tablet(s) PO BID 09/21/2016 10/03/2018 Inactive Lasix 20 mg tablet RxNorm: 222987 1 Tablet(s) PO daily 09/15/2016 12/23/2016 Inactive potassium chloride 2 0 mEq/15 mL oral liquid RxNorm: 531040 Milliliter(s) 30 Milliliter(s) (40mEq) PO daily 09/15/2016 01/12/2017 Inactive Lasix 20 mg tablet RxNorm: 516598 2 Tablet(s) PO daily 09/10/2016 09/12/2016 Inactive Lasix 20 mg tablet RxNorm: 012520 1 Tablet(s) PO daily 08/28/2016 08/30/2016 Inactive Lasix 20 mg tablet RxNorm: 684701 1 Tablet(s) PO daily 08/20/2016 08/22/2016 Inactive Detrol LA 4 mg capsu le,extended release RxNorm: 222352 TAKE 1 CAPSULE BY JAVON TH ONCE DAILY 07/27/2016 02/18/2017 Inactive Generic For:DETROL LA 4MG C AP 07/27/2016 9:08:27 AM Coumadin 4 mg tablet RxNorm: 334732 1 Tablet(s) PO 3 x week wed and sun 07/27/2016 09/24/2016 In active omeprazole 20 mg cap sean,delayed release RxNorm: 791953 Capsule(s) PO TAKE 1 CAPSULE BY MOUTH ONCE DAILY 07/27/2016 01/22/2017 Inactive venlafaxine ER 75 mg capsule,extended release 24 hr RxNorm: 757302 1 Capsule(s) PO daily 06/29/2016 06/21/2017 Inactive sodium bicarbonate 6 50 mg tablet RxNorm: 957011 TAKE 2 TABLETS BY JAVON TWICE DAILY 06/29/2016 12/23/2016 In active 06/27/2016 9:05:39 AM Coumadin 4 mg tablet RxNorm: 477160 1 Tablet(s) PO 3 x week wed and sun 06/09/2016 06/08/2016 In active Coumadin 4 mg tablet RxNorm: 849817 1 Tablet(s) PO 3 x week wed and sun 06/09/2016 07/26/2016 In active Zetia 10 mg tablet RxNorm: 246715 1 Tablet(s) PO daily 06/09/2016 06/08/2016 Inactive gave 1 month of samples Zetia 10 mg tablet RxNorm: 055288 1 Tablet(s) PO daily 06/09/2016 09/24/2016 Inactive gave 1 month of samples Effexor 75 mg tablet RxNorm: 556871 1 Tablet(s) PO daily 06/08/2016 06/28/2016 Inactive spironolactone 25 mg tablet RxNorm: 647647 1 Tablet(s) PO daily 06/08/2016 05/23/2017 Inactive Synthroid 137 mcg ta blet RxNorm: 113544 1 Tablet(s) PO daily 05/07/2016 11/02/2016 Inactive allopurinol 300 mg t ablet RxNorm: 256726 Tablet(s) TAKE 1 TABL ET BY MOUTH ONCE DAILY. 04/28/2016 10/24/2016 Inactive clonazepam 0.5 mg ta blet RxNorm: 369727 1 Tablet(s) PO BID 04/20/2016 10/03/2018 Inactive Flonase Allergy Reli ef 50 mcg/actuation nasal spray,suspension RxNorm: 7262148 1 [place] NASAL BID 04/02/2016 No Stop Date Active Zithromax Z-Thomas 250 mg tablet RxNorm: 202549 Tablet(s) PO 04/02/2016 08/27/2016 Inactive cetirizine 10 mg tablet RxNorm: 0323471 1 Tablet(s) PO daily 04/02/2016 05/01/2016 Inactive Carafate 1 gram tablet RxNorm: 134835 Tablet(s) TAKE 1 TABLET TWICE A DAY FOR 30 DAYS 03/30/2016 10/25/2016 Inactive Generic For:CARAFATE 1GM 02/08/2015 12:3 6:39 PM Plavix 75 mg tablet RxNorm: 390485 1 Tablet(s) PO daily 03/11/2016 09/06/2016 Inactive sodium bicarbonate 6 50 mg tablet RxNorm: 822426 Tablet(s) 2 Tablet(s) PO BID 02/28/2016 06/26/2016 In active omeprazole 20 mg cap sean,delayed release RxNorm: 667530 Capsule(s) PO TAKE 1 CAPSULE BY MOUTH ONCE DAILY 01/31/2016 07/26/2016 Inactive Fish Oil 1,000 mg ca psule RxNorm: 1 Capsule(s) PO BID 01/14/2016 No Stop Date Active Synthroid 137 mcg ta blet RxNorm: 134765 1 Tablet(s) PO daily 01/14/2016 05/06/2016 Inactive Detrol LA 4 mg capsu le,extended release RxNorm: 447188 TAKE 1 CAPSULE BY JAVON TH ONCE DAILY 12/30/2015 07/26/2016 Inactive Generic For:DETROL LA 4MG C AP 12/30/2015 9:11:01 AM potassium chloride 2 0 mEq/15 mL oral liquid RxNorm: 380555 Milliliter(s) 30 Milliliter(s) (40mEq) PO daily 12/02/2015 03/30/2016 Inactive sodium bicarbonate 6 50 mg tablet RxNorm: 693130 Tablet(s) 2 Tablet(s) PO BID 10/31/2015 02/27/2016 In active Lipitor 40 mg tablet RxNorm: 822559 1 Tablet(s) PO daily 10/09/2015 09/24/2016 Inactive sodium bicarbonate 6 50 mg tablet RxNorm: 185437 2 Tablet(s) PO BID 10/01/2015 10/30/2015 Inactive allopurinol 300 mg t ablet RxNorm: 956276 TAKE 1 TABLET BY MOUT H ONCE DAILY. 10/01/2015 04/27/2016 In active Generic For:ZYLOPRIM 300 MG TABLET 09/19 9:21:15 AM clonazepam 0.5 mg ta blet RxNorm: 619066 1 Tablet(s) PO BID 09/30/2015 04/19/2016 Inactive Coumadin 5 mg tablet RxNorm: 224863 1 Tablet(s) PO daily 09/27/2015 05/31/2017 Inactive Generic For:COUMADIN 5MG TAB N O T I C E PRESCRIPTION PREVIOUSLY AUTHORIZED BY DOCTOR:BOBBY ZULETA Synthroid 125 mcg ta blet RxNorm: 987477 1 Tablet(s) PO daily 09/27/2015 09/26/2015 Inactive Synthroid 125 mcg ta blet RxNorm: 043351 1 Tablet(s) PO daily 09/27/2015 01/13/2016 Inactive Carafate 1 gram tablet RxNorm: 892949 Tablet(s) TAKE 1 TABLET TWICE A DAY FOR 30 DAYS 09/02/2015 03/29/2016 Inactive Generic For:CARAFATE 1GM 02/08/2015 12:3 6:39 PM sodium bicarbonate 6 50 mg tablet RxNorm: 549829 2 Tablet(s) PO BID 09/02/2015 09/30/2015 Inactive Prilosec 20 mg capsu le,delayed release RxNorm: 242938 TAKE 1 CAPSULE BY JAVON TH ONCE DAILY 08/02/2015 01/28/2016 Inactive Generic For:PRILOSEC 20MG 08/02/2015 10:03:09 AM N O T I C E PRESCRIPTION PREVIOUSLY AUTHORIZED BY DOCTOR:BOBBY ZULETA Zyrtec 10 mg capsule RxNorm: 6041975 1 Capsule(s) PO daily 07/15/2015 08/13/2015 Inactive Keflex 500 mg capsule RxNorm: 790956 1 Capsule(s) PO TID 07/15/2015 07/21/2015 Inactive cetirizine 10 mg cap sean RxNorm: 9147311 1 Capsule(s) PO daily 07/15/2015 08/13/2015 Inactive hydrocodone 5 mg-humberto taminophen 325 mg tablet RxNorm: 366375 1-2 Tablet(s) PO Q6 P RN 06/10/2015 11/16/2016 In active sodium bicarbonate 6 50 mg tablet RxNorm: 194118 2 Tablet(s) PO BID 06/03/2015 08/31/2015 Inactive Detrol LA 4 mg capsu le,extended release RxNorm: 334360 TAKE 1 CAPSULE BY JAVON TH ONCE DAILY 06/03/2015 12/29/2015 Inactive Generic For:DETROL LA 4MG C AP N O T I C E PRESCRIPTION PREVIOUSLY AUTHORIZED BY DOCTOR:BOBBY ZULETA atenolol 50 mg tablet RxNorm: 998491 1 Tablet(s) PO daily TAKE 1 TABLET BY MO UTH DAILY 05/07/2015 08/23/2017 Inactive Generic For:TENORMIN 50MG 05/04/2015 9:07:22 AM spironolactone 25 mg tablet RxNorm: 781739 1 Tablet(s) PO daily 05/06/2015 06/07/2016 Inactive venlafaxine ER 75 mg capsule,extended release 24 hr RxNorm: 315103 1 Capsule(s) PO daily 05/04/2015 06/28/2016 Inactive atenolol 50 mg tablet RxNorm: 620887 TAKE 1 TABLET BY MOUTH DAILY 05/04/2015 05/06/2015 Inactive Generic For:TENORMIN 50MG 05/04/2015 9: 07:22 AM Synthroid 150 mcg ta blet RxNorm: 603948 TAKE 1 TABLET BY MOUT H ONCE DAILY. 04/05/2015 09/26/2015 In active Generic For:SYNTHROID 150MCG TAB 2014 4:45:40 PM N O T I C E PRESCRIPTION PREVIOUSLY AUTHORIZED BY DOCTOR:BOBBY ZULETA Effexor 75 mg tablet RxNorm: 041197 1 Tablet(s) PO daily 04/05/2015 07/03/2015 Inactive Coumadin 5 mg tablet RxNorm: 374673 TAKE 1 AND 1/2 TABLETS BY MOUTH ONCE MYRANDA LY 04/04/2015 09/26/2015 In active Generic For:COUMADIN 5MG TAB N O T I C E PRESCRIPTION PREVIOUSLY AUTHORIZED BY DOCTOR:BOBBY ZULETA clonazepam 0.5 mg ta blet RxNorm: 442965 1 Tablet(s) PO BID 03/13/2015 11/05/2015 Inactive sodium bicarbonate 6 50 mg tablet RxNorm: 799478 2 Tablet(s) PO BID 03/08/2015 06/02/2015 Inactive allopurinol 300 mg t ablet RxNorm: 764546 TAKE 1 TABLET BY MOUT H ONCE DAILY. 03/05/2015 09/30/2015 In active N O T I C E PRESCRIPTION PREVIOUSLY A UTHORIZED BY DOCTOR:BOBBY ZULETA Plavix 75 mg tablet RxNorm: 750830 1 Tablet(s) PO daily 02/12/2015 09/09/2015 Inactive clonazepam 0.5 mg ta blet RxNorm: 592986 1 Tablet(s) PO BID 02/11/2015 03/11/2015 Inactive Carafate 1 gram tablet RxNorm: 381874 TAKE 1 TABLET TWICE A DAY FOR 30 DAYS 02/08/2015 02/07/2015 In active Generic For:CARAFATE 1GM 02/08/2015 12:3 6:39 PM Carafate 1 gram tablet RxNorm: 212816 Tablet(s) TAKE 1 TABLET TWICE A DAY FOR 30 DAYS 02/08/2015 09/01/2015 Inactive Generic For:CARAFATE 1GM 02/08/2015 12:3 6:39 PM potassium chloride 2 0 mEq/15 mL oral liquid RxNorm: 063558 30 Milliliter(s) (40m Eq) PO daily 02/05/2015 12/01/2015 Inactive atenolol 50 mg tablet RxNorm: 691706 1 Tablet(s) PO daily 02/04/2015 05/03/2015 Inactive [SAVINGS FOR NON-COVERED DRUGS -- BIN:00 3585, PCN: [id number], Group: XXXXX, ID# XXXXXXX, Questions: . THIS IS NOT INSURANCE.] potassium chloride 2 0 mEq/15 mL oral liquid RxNorm: 866328 30 Milliliter(s) (40m Eq) PO daily 01/08/2015 02/04/2015 Inactive potassium chloride 2 0 mEq/15 mL oral liquid RxNorm: 782467 30 Milliliter(s) (40m Eq) PO daily 12/07/2014 01/07/2015 Inactive atenolol 50 mg tablet RxNorm: 524762 1 Tablet(s) PO daily 11/09/2014 11/08/2014 Inactive atenolol 50 mg tablet RxNorm: 161380 1 Tablet(s) PO daily 11/09/2014 02/03/2015 Inactive [SAVINGS FOR NON-COVERED DRUGS -- BIN:3584, PCN: ASPROD1, Group: XXXXX, ID# XXXXXXX, Questions: . THIS IS NOT INSURANCE.] Voltaren 1 % topical gel RxNorm: 106975 TOP No St art Date Active verapamil ER (HS) 24 0 mg tablet,extended release 24 hr RxNorm: 483434 1 Tablet(s) PO daily No Start Date Active aspirin 81 mg tablet RxNorm: 736791 1 Tablet(s) PO daily No Start Date Active Zofran 4 mg tablet RxNorm: 965201 1 Tablet(s) PO PRN No Start Date Active B12 1000 mcg RxNorm: 1 Tablet(s) PO daily No Start Date Active magnesium oxide 400 mg capsule RxNorm: 248150 2 Capsule(s) PO BID No Start Date Active Synthroid 150 mcg ta blet RxNorm: 850035 1 Tablet(s) PO daily No Start Date 04/04/2015 Inactive Coumadin 5 mg tablet RxNorm: 026020 1 Tablet(s) PO daily No Start Date 04/03/2015 Inactive cranberry 1,000 mg c apsule RxNorm: 236630 1 Capsule(s) PO daily No Start Date 04/13/2018 Inactive allopurinol 300 mg t ablet RxNorm: 750326 1 Tablet(s) PO daily No Start Date 03/04/2015 Inactive Prilosec 20 mg capsu le,delayed release RxNorm: 936138 1 Capsule(s) PO PRN No Start Date 08/01/2015 Inactive potassium chloride 2 0 mEq/15 mL oral liquid RxNorm: 874182 30 Milliliter(s) (40m Eq) PO daily No Start Date 12/06/2014 Inactive atenolol 50 mg tablet RxNorm: 512397 1 Tablet(s) PO daily No Start Date 08/29/2017 Inactive Lipitor 40 mg tablet RxNorm: 227293 1 Tablet(s) PO daily No Start Date 09/19/2017 Inactive Effexor 75 mg tablet RxNorm: 877772 1 Tablet(s) PO daily No Start Date 04/04/2015 Inactive Carafate 1 gram tablet RxNorm: 900560 1 Tablet(s) PO BID No Start Date 02/07/2015 Inactive clonazepam 0.5 mg ta blet RxNorm: 078428 1 Tablet(s) PO BID No Start Date 02/10/2015 Inactive Plavix 75 mg tablet RxNorm: 331909 1 Tablet(s) PO daily No Start Date 02/11/2015 Inactive sodium bicarbonate 6 50 mg tablet RxNorm: 237989 2 Tablet(s) PO BID No Start Date 09/01/2015 Inactive Lovenox 30 mg/0.3 mL subcutaneous syringe RxNorm: 215007 0.3 Milliliter(s) SQ Q12H No Start Date 03/15/2017 Inactive Fish Oil 1,000 mg ca psule RxNorm: 1 Capsule(s) PO daily No Start Date 01/13/2016 Inactive Detrol LA 4 mg capsu le,extended release RxNorm: 794422 1 Capsule(s) PO daily No Start Date 06/02/2015 Inactive Medication Administered Medication Codes Instruc tions Start Date Status Kenalog 40 mg/mL suspension for injection RxNorm: 6758333 Milliliter 09/02/2018 No longer Active Immunizations Vaccine Codes Date Status SHINGARIX CVX: 121 03/23 completed Assessments Condition Codes Effectiv e Dates Mixed hyperlipidemia ICD-10: E78.2 ICD-9: 272.4 10/05/2018 Other acute sinusitis ICD-10: J01.80 ICD-9: 461.8 09/02/2018 Other allergic rhinitis ICD-10: J30. 89 ICD-9: 477.8 09/02/2018 Hypothyroidism, unspecified ICD-10: E03.9 ICD-9: 244.9 04/14/2018 Essential (primary) hypertension ICD -10: I10 ICD-9: 401.9 04/14/2018 nursing home (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 ICD-10: Z79.01 ICD-9: V58.61 04/14/2018 Impaired fasting glucose ICD-10: R73 .01 ICD-9: 790.21 04/14/2018 Gastro-esophageal reflux disease without esophagitis ICD-10: K21.9 ICD-9: 530.81 01/18/2018 Localized edema ICD-10: R60.0 ICD-9: 782.3 01/18/2018 Right lower quadrant pain ICD-10: R1 0.31 ICD-9: 789.03 09/23/2017 Incisional hernia without obstruction or gangrene ICD-10: K43.2 ICD-9: 553.21 09/23/2017 Dysuria ICD-10: R30.0 ICD-9: 788.1 03/05/2017 Pain in right hip ICD-10: M25.551 ICD-9: 719.45 02/24/2017 Hyperglycemia, unspecified ICD-10: R 73.9 ICD-9: 790.29 10/08/2016 Personal history of other endocrine, nut ritional and metabolic disease ICD-10: Z86.39 ICD-9: V12.29 09/18/2016 Pain in joints of right hand ICD-10: M25.541 ICD-9: 719.44 09/10/2016 Pain in joints of left hand ICD-10: M25.542 ICD-9: 719.44 09/10/2016 Other fatigue ICD-10: R53.83 ICD-9: 780.79 08/20/2016 Other assisted (current) drug therapy ICD-10: Z79.899 ICD-9: V58.69 06/08/2016 Tinnitus, bilateral ICD-10: H93.13 ICD-9: 388.31 06/08/2016 Acute laryngopharyngitis ICD-10: J06 .0 ICD-9: 465.0 04/02/2016 Left upper quadrant pain ICD-10: R10 .12 ICD-9: 789.02 01/14/2016 Body mass index (BMI) 40.0-44.9, adult ICD-10: Z68.41 ICD-9: V85.41 10/02/2015 Pain in left shoulder ICD-10: M25.51 2 ICD-9: 719.41 10/02/2015 Pain in left leg ICD-10: M79.605 ICD-9: 729.5 07/15/2015 Pain in right shoulder ICD-10: M25.5 11 ICD-9: 719.41 06/10/2015 Snoring ICD-9: 786.09 Status post gastric surgery ICD-9: V45.89 01/22/2015 ESSENTIAL HYPERTENSION ICD-9: 401.9 01/22/2015 ENCNTR LONG-RX USE NEC ICD-9: V58.69 01/22/2015 HYPERLIPIDEMIA ICD-9: 272.4 01/22/2015 Vitamin B12 deficiency ICD-9: 266.2 01/22/2015 HYPOTHYROIDISM ICD-9: 244.9 01/22/2015 Reason For Visit Reason For Visit Effective Dates Notes cough 09/02/2018 hypertension 04/14/2018 hypertension 01/18/2018 hypertension 01/04/2018 hypertension 09/23/2017 hypertension 05/27/2017 pre-op/surgery consult 02/24/2017 hypertension 11/02/2016 hypertension 09/30/2016 edema 09/10/2016 medication follow up 08/20/2016 medication follow up 06/08/2016 cough 04/02/2016 abdominal pain 01/14/2016 shoulder pain 10/02/2015 edema 07/15/2015 weight gain/obesity 06/10/2015 hernia 01/22/2015 right sided abdomen with previous ileostomy Results Observation Observation Code Item Item Code Result Date Pt Htn0406 PT 27.4 seconds 01/27/2019 Pt Qks1666 INR 2.6 01/27/2019 Pt Snn3008 Low Intensity - 1.5-2.0 01/27/2019 Pt Ipz7062 Mod intensity - 2.0-3.0 01/27/2019 Pt Hhz4593 Hi intensity - 3.0-4.0 01/27/2019 Pt Hyu3102 PT 21.8 seconds 12/15/2018 Pt Wmg0542 INR 2.0 12/15/2018 Pt Vxx3399 Low Intensity - 1.5-2.0 12/15/2018 Pt Gcr9597 Mod intensity - 2.0-3.0 12/15/2018 Pt Qyt5404 Hi intensity - 3.0-4.0 12/15/2018 Pt Aqb0138 PT 24.4 seconds 12/09/2018 Pt Lup9432 INR 2.2 12/09/2018 Pt Xqn1249 Low Intensity - 1.5-2.0 12/09/2018 Pt Tni2533 Mod intensity - 2.0-3.0 12/09/2018 Pt Nij9687 Hi intensity - 3.0-4.0 12/09/2018 Pt Wfr9475 PT 35.0 seconds 12/01/2018 Pt Fuv9758 INR 3.5 12/01/2018 Pt Bjv3683 Low Intensity - 1.5-2.0 12/01/2018 Pt Izb9072 Mod intensity - 2.0-3.0 12/01/2018 Pt Zek7303 Hi intensity - 3.0-4.0 12/01/2018 Pt Ios3059 PT 26.3 seconds 10/13/2018 Pt Bbw0789 INR 2.5 10/13/2018 Pt Tfa9071 Low Intensity - 1.5-2.0 10/13/2018 Pt Jgd7488 Mod intensity - 2.0-3.0 10/13/2018 Pt Mtl6329 Hi intensity - 3.0-4.0 10/13/2018 Lipid Ord30 CHOL 180 mg/dL 10/07/2018 Lipid Ord30 HDL 74.0 mg/dl 10/07/2018 Lipid Ord30 TRIG 111 mg/dL 10/07/2018 Lipid Ord30 LDL 84 mg/dL 10/07/2018 Lipid Ord30 C/HDL 2.4 Ratio 10/07/2018 Pt Gqp2233 PT 38.1 seconds 10/07/2018 Pt Cxw0255 INR 3.9 10/07/2018 Pt Wtw6259 Low Intensity - 1.5-2.0 10/07/2018 Pt Hoj7842 Mod intensity - 2.0-3.0 10/07/2018 Pt Dye4461 Hi intensity - 3.0-4.0 10/07/2018 Tsh Ord6 TSH (3rd IS) 0.43 uIU/mL 09/02/2018 Comp Metabolic Akd205 NA 136 mEq/L 09/02/2018 Comp Metabolic Pdk506 K 4.1 mEq/L 09/02/2018 Comp Metabolic Pog005 CL 103 mEq/L 09/02/2018 Comp Metabolic Smz727 CO2 20.0 mEq/L 09/02/2018 Comp Metabolic Xxh041 AN ION GAP 17 09/02/2018 Comp Metabolic Avw986 GL UCOSE 124 mg/dL 09/02/2018 Comp Metabolic Tlz125 Cr eat 1.0 mg/dL 09/02/2018 Comp Metabolic Qps848 eG FR 57 ml/min/1.73m2 09/02 Comp Metabolic Dbl865 BUN 24 mg/dL 09/02/2018 Comp Metabolic Nif207 B/ C Ratio 23.8 Ratio 09/02/2018 Comp Metabolic Owk082 CA LCIUM 9.5 mg/dL 09/02/2018 Comp Metabolic Soq117 AL K PHOS 64 U/L 09/02/2018 Comp Metabolic Peh682 T(SGOT) 24 U/L 09/02/2018 Comp Metabolic Css019 AL T(SGPT) 23 U/L 09/02/2018 Comp Metabolic Ybt091 BI LI T 0.5 mg/dL 09/02/2018 Comp Metabolic Ofu107 AL BUMIN 4.2 g/dL 09/02/2018 Comp Metabolic Wwq525 TP RO 7.4 g/dL 09/02/2018 Comp Metabolic Tfe790 GL OB 3.2 g/dL 09/02/2018 Comp Metabolic Eso299 A/ G Ratio 1.3 Ratio 09/02/2018 Comp Metabolic Ahr985 Os mo 277 mOsmo 09/02/2018 Pt Cku5266 PT 40.6 seconds 09/02/2018 Pt Ujd8144 INR 4.2 09/02/2018 Pt Ejn9567 Low Intensity - 1.5-2.0 09/02/2018 Pt Poi0693 Mod intensity - 2.0-3.0 09/02/2018 Pt Mnb3432 Hi intensity - 3.0-4.0 09/02/2018 Free T4 Awz198 FREE T4 1.51 ng/dL 09/02/2018 Magnesium Ord90 Mag 1.8 mg/dL 09/02/2018 Pt Aor4253 PT 29.2 seconds 08/05/2018 Pt Yhx7816 INR 2.8 08/05/2018 Pt Cky8873 Low Intensity - 1.5-2.0 08/05/2018 Pt Tvj8657 Mod intensity - 2.0-3.0 08/05/2018 Pt Gef3363 Hi intensity - 3.0-4.0 08/05/2018 Pt Wki7768 PT 30.2 seconds 07/25/2018 Pt Tao2750 INR 2.9 07/25/2018 Pt Mhd5528 Low Intensity - 1.5-2.0 07/25/2018 Pt Beb9046 Mod intensity - 2.0-3.0 07/25/2018 Pt Gce0034 Hi intensity - 3.0-4.0 07/25/2018 Pt Fws9220 PT 25.2 seconds 07/19/2018 Pt Kgn1863 INR 2.3 07/19/2018 Pt Qee5711 Low Intensity - 1.5-2.0 07/19/2018 Pt Uxt0085 Mod intensity - 2.0-3.0 07/19/2018 Pt Nvo5328 Hi intensity - 3.0-4.0 07/19/2018 Pt Zxa9482 PT 17.4 seconds 07/15/2018 Pt Qgg3643 INR 1.5 07/15/2018 Pt Tkq1561 Low Intensity - 1.5-2.0 07/15/2018 Pt Fvv7949 Mod intensity - 2.0-3.0 07/15/2018 Pt Xbq0743 Hi intensity - 3.0-4.0 07/15/2018 Pt Yxa0252 PT 17.8 seconds 07/08/2018 Pt Kir7871 INR 1.5 07/08/2018 Pt Qla1623 Low Intensity - 1.5-2.0 07/08/2018 Pt Zlv7876 Mod intensity - 2.0-3.0 07/08/2018 Pt Uij2782 Hi intensity - 3.0-4.0 07/08/2018 Pt Edx5612 PT 19.2 seconds 07/01/2018 Pt Cgb3411 INR 1.7 07/01/2018 Pt Xii8243 Low Intensity - 1.5-2.0 07/01/2018 Pt Kjy6254 Mod intensity - 2.0-3.0 07/01/2018 Pt Cvh7759 Hi intensity - 3.0-4.0 07/01/2018 Pt Nka6428 PT 17.4 seconds 06/23/2018 Pt Xbq1901 INR 1.5 06/23/2018 Pt Vtg7396 Low Intensity - 1.5-2.0 06/23/2018 Pt Gda5278 Mod intensity - 2.0-3.0 06/23/2018 Pt Ezl6609 Hi intensity - 3.0-4.0 06/23/2018 Pt Tbt2760 PT 18.4 seconds 06/17/2018 Pt Xjc0650 INR 1.6 06/17/2018 Pt Ptn0766 Low Intensity - 1.5-2.0 06/17/2018 Pt Ozd4515 Mod intensity - 2.0-3.0 06/17/2018 Pt Xqi5355 Hi intensity - 3.0-4.0 06/17/2018 Sed Rate Ord21 ESR 5 mm/hr 06/08/2018 Cbc With Differential Ord2 WBC 5.45 K/ul 06/08/2018 Cbc With Differential Ord2 RBC 4.93 M/ul 06/08/2018 Cbc With Differential Ord2 HGB 15.0 g/dl 06/08/2018 Cbc With Differential Ord2 HCT 43.8 % 06/08/2018 Cbc With Differential Ord2 Neut% 65.1 % 06/08/2018 Cbc With Differential Ord2 MCV 88.8 fl 06/08/2018 Cbc With Differential Ord2 Lymph% 22.0 % 06/08/2018 Cbc With Differential Ord2 MCH 30.4 pg 06/08/2018 Cbc With Differential Ord2 [place]% 9.4 % 06/08/2018 Cbc With Differential Ord2 MCHC 34.2 pg 06/08/2018 Cbc With Differential Ord2 Eos% 2.4 % 06/08/2018 Cbc With Differential Ord2 PLT 197 K/ul 06/08/2018 Cbc With Differential Ord2 Baso% 1.1 % 06/08/2018 Cbc With Differential Ord2 RDW 14.8 % 06/08/2018 Cbc With Differential Ord2 Neut ABS# 3.55 K/ul 06/08/2018 Cbc With Differential Ord2 Lymph ABS# 1.20 K/ul 06/08/2018 Cbc With Differential Ord2 [place] ABS# 0.5 K/ul 06/08/2018 Cbc With Differential Ord2 Eos ABS# 0.1 K/ul 06/08/2018 Cbc With Differential Ord2 Baso ABS# 0.1 K/ul 06/08/2018 C-Reactive Protein Qnt Crqnt CRP 0.1 mg/dl 06/08/2018 Pt Fmz2013 PT 17.6 seconds 06/08/2018 Pt Tqa2528 INR 1.5 06/08/2018 Pt Bgy9033 Low Intensity - 1.5-2.0 06/08/2018 Pt Gdr7110 Mod intensity - 2.0-3.0 06/08/2018 Pt Avb8711 Hi intensity - 3.0-4.0 06/08/2018 Pt Fbe0066 PT 16.8 seconds 05/10/2018 Pt Irb1020 INR 1.4 05/10/2018 Pt Vvp8471 Low Intensity - 1.5-2.0 05/10/2018 Pt Oad1688 Mod intensity - 2.0-3.0 05/10/2018 Pt Mqn4912 Hi intensity - 3.0-4.0 05/10/2018 Pt Siz9681 PT 16.7 seconds 05/04/2018 Pt Sis1401 INR 1.4 05/04/2018 Pt Nuk8418 Low Intensity - 1.5-2.0 05/04/2018 Pt Znw1755 Mod intensity - 2.0-3.0 05/04/2018 Pt Qsk6073 Hi intensity - 3.0-4.0 05/04/2018 Free T4 Iax017 FREE T4 1.09 ng/dL 04/14/2018 Tsh Ord6 TSH (3rd IS) 2.36 uIU/mL 04/14/2018 Pt Uni8436 PT 20.3 seconds 04/14/2018 Pt Jyk8562 INR 1.8 04/14/2018 Pt Ubh2637 Low Intensity - 1.5-2.0 04/14/2018 Pt Cog3406 Mod intensity - 2.0-3.0 04/14/2018 Pt Caa8164 Hi intensity - 3.0-4.0 04/14/2018 Lipid Ord30 CHOL 149 mg/dL 04/14/2018 Lipid Ord30 HDL 49.0 mg/dl 04/14/2018 Lipid Ord30 TRIG 161 mg/dL 04/14/2018 Lipid Ord30 LDL 68 mg/dL 04/14/2018 Lipid Ord30 C/HDL 3.0 Ratio 04/14/2018 %Hba1C Muy416 % HbA1c 22855-5 5.9 % 04/14/2018 %Hba1C Ttb259 Gluc Ave 123 mg/dL 04/14/2018 Comp Metabolic Ncc780 NA 140 mEq/L 04/14/2018 Comp Metabolic Vqf869 K 4.1 mEq/L 04/14/2018 Comp Metabolic Ikc060 CL 105 mEq/L 04/14/2018 Comp Metabolic Tbd353 CO2 28.0 mEq/L 04/14/2018 Comp Metabolic Zdh426 AN ION GAP 11 04/14/2018 Comp Metabolic Opb572 GL UCOSE 112 mg/dL 04/14/2018 Comp Metabolic Zze398 Cr eat 1.0 mg/dL 04/14/2018 Comp Metabolic Wbs169 eG FR 58 ml/min/1.73m2 04/14 Comp Metabolic Cie366 BUN 20 mg/dL 04/14/2018 Comp Metabolic Wbn522 B/ C Ratio 20.2 Ratio 04/14/2018 Comp Metabolic Ygb691 CA LCIUM 10.0 mg/dL 04/14/2018 Comp Metabolic Djz013 AL K PHOS 51 U/L 04/14/2018 Comp Metabolic Ija106 T(SGOT) 24 U/L 04/14/2018 Comp Metabolic Hxm828 AL T(SGPT) 21 U/L 04/14/2018 Comp Metabolic Jtt411 BI LI T 0.8 mg/dL 04/14/2018 Comp Metabolic Zvh725 AL BUMIN 4.2 g/dL 04/14/2018 Comp Metabolic Wqj635 TP RO 7.1 g/dL 04/14/2018 Comp Metabolic Kfo369 GL OB 2.9 g/dL 04/14/2018 Comp Metabolic Lxb391 A/ G Ratio 1.5 Ratio 04/14/2018 Comp Metabolic Bzw959 Os mo 283 mOsmo 04/14/2018 Cbc With Differential Ord2 WBC 4.83 K/ul 04/14/2018 Cbc With Differential Ord2 RBC 4.86 M/ul 04/14/2018 Cbc With Differential Ord2 HGB 14.9 g/dl 04/14/2018 Cbc With Differential Ord2 HCT 43.9 % 04/14/2018 Cbc With Differential Ord2 Neut% 60.7 % 04/14/2018 Cbc With Differential Ord2 MCV 90.3 fl 04/14/2018 Cbc With Differential Ord2 Lymph% 24.4 % 04/14/2018 Cbc With Differential Ord2 MCH 30.7 pg 04/14/2018 Cbc With Differential Ord2 [place]% 10.6 % 04/14/2018 Cbc With Differential Ord2 MCHC 33.9 pg 04/14/2018 Cbc With Differential Ord2 Eos% 3.1 % 04/14/2018 Cbc With Differential Ord2 PLT 189 K/ul 04/14/2018 Cbc With Differential Ord2 Baso% 1.2 % 04/14/2018 Cbc With Differential Ord2 RDW 14.6 % 04/14/2018 Cbc With Differential Ord2 Neut ABS# 2.93 K/ul 04/14/2018 Cbc With Differential Ord2 Lymph ABS# 1.18 K/ul 04/14/2018 Cbc With Differential Ord2 [place] ABS# 0.5 K/ul 04/14/2018 Cbc With Differential Ord2 Eos ABS# 0.2 K/ul 04/14/2018 Cbc With Differential Ord2 Baso ABS# 0.1 K/ul 04/14/2018 Pt Vfn6766 PT 29.3 seconds 02/11/2018 Pt Ivd6931 INR 2.8 02/11/2018 Pt Bhc4859 Low Intensity - 1.5-2.0 02/11/2018 Pt Dwr5747 Mod intensity - 2.0-3.0 02/11/2018 Pt Mcw4104 Hi intensity - 3.0-4.0 02/11/2018 Comp Metabolic Mtr870 NA 141 mEq/L 01/05/2018 Comp Metabolic Blo215 K 3.7 mEq/L 01/05/2018 Comp Metabolic Zha323 CL 102 mEq/L 01/05/2018 Comp Metabolic Wjl406 CO2 29.0 mEq/L 01/05/2018 Comp Metabolic Cfn182 AN ION GAP 14 01/05/2018 Comp Metabolic Ykq723 GL UCOSE 136 mg/dL 01/05/2018 Comp Metabolic Ktq266 Cr eat 1.0 mg/dL 01/05/2018 Comp Metabolic Uzj533 eG FR 61 ml/min/1.73m2 01/05 Comp Metabolic Aqq212 BUN 22 mg/dL 01/05/2018 Comp Metabolic Mhe648 B/ C Ratio 22.9 Ratio 01/05/2018 Comp Metabolic Gzp861 CA LCIUM 9.7 mg/dL 01/05/2018 Comp Metabolic Zil107 AL K PHOS 57 U/L 01/05/2018 Comp Metabolic Sxt246 T(SGOT) 21 U/L 01/05/2018 Comp Metabolic Ayg639 AL T(SGPT) 19 U/L 01/05/2018 Comp Metabolic Fyn929 BI LI T 0.9 mg/dL 01/05/2018 Comp Metabolic Mld618 AL BUMIN 4.1 g/dL 01/05/2018 Comp Metabolic Hxf150 TP RO 7.1 g/dL 01/05/2018 Comp Metabolic Viy505 GL OB 3.0 g/dL 01/05/2018 Comp Metabolic Oee324 A/ G Ratio 1.4 Ratio 01/05/2018 Comp Metabolic Dce974 Os mo 287 mOsmo 01/05/2018 Free T4 Bem616 FREE T4 1.05 ng/dL 01/05/2018 %Hba1C Bgp935 % HbA1c 12316-8 6.0 % 01/05/2018 %Hba1C Qtz196 Gluc Ave 126 mg/dL 01/05/2018 Cbc With Differential Ord2 WBC 4.66 K/ul 01/05/2018 Cbc With Differential Ord2 RBC 4.74 M/ul 01/05/2018 Cbc With Differential Ord2 HGB 14.5 g/dl 01/05/2018 Cbc With Differential Ord2 HCT 43.2 % 01/05/2018 Cbc With Differential Ord2 Neut% 56.7 % 01/05/2018 Cbc With Differential Ord2 MCV 91.1 fl 01/05/2018 Cbc With Differential Ord2 Lymph% 27.3 % 01/05/2018 Cbc With Differential Ord2 MCH 30.6 pg 01/05/2018 Cbc With Differential Ord2 [place]% 10.5 % 01/05/2018 Cbc With Differential Ord2 MCHC 33.6 pg 01/05/2018 Cbc With Differential Ord2 Eos% 3.6 % 01/05/2018 Cbc With Differential Ord2 PLT 177 K/ul 01/05/2018 Cbc With Differential Ord2 Baso% 1.9 % 01/05/2018 Cbc With Differential Ord2 RDW 14.5 % 01/05/2018 Cbc With Differential Ord2 Neut ABS# 2.64 K/ul 01/05/2018 Cbc With Differential Ord2 Lymph ABS# 1.27 K/ul 01/05/2018 Cbc With Differential Ord2 [place] ABS# 0.5 K/ul 01/05/2018 Cbc With Differential Ord2 Eos ABS# 0.2 K/ul 01/05/2018 Cbc With Differential Ord2 Baso ABS# 0.1 K/ul 01/05/2018 Pt Uvo2603 PT 20.7 seconds 01/05/2018 Pt Tnv8887 INR 1.8 01/05/2018 Pt Tjj1804 Low Intensity - 1.5-2.0 01/05/2018 Pt Syn2668 Mod intensity - 2.0-3.0 01/05/2018 Pt Kzs1367 Hi intensity - 3.0-4.0 01/05/2018 Tsh Ord6 TSH (3rd IS) 2.34 uIU/mL 01/05/2018 Lipid Ord30 CHOL 156 mg/dL 01/05/2018 Lipid Ord30 HDL 48.0 mg/dl 01/05/2018 Lipid Ord30 TRIG 207 mg/dL 01/05/2018 Lipid Ord30 LDL 67 mg/dL 01/05/2018 Lipid Ord30 C/HDL 3.3 Ratio 01/05/2018 Pt Lve7759 PT 28.3 seconds 11/26/2017 Pt Zvg0362 INR 2.6 11/26/2017 Pt Edv7023 Low Intensity - 1.5-2.0 11/26/2017 Pt Rzs1914 Mod intensity - 2.0-3.0 11/26/2017 Pt Qos0768 Hi intensity - 3.0-4.0 11/26/2017 Pt Pmy8936 PT 36.5 seconds 11/19/2017 Pt Tol8832 INR 3.6 11/19/2017 Pt Wkb1987 Low Intensity - 1.5-2.0 11/19/2017 Pt Vji7422 Mod intensity - 2.0-3.0 11/19/2017 Pt Cch6031 Hi intensity - 3.0-4.0 11/19/2017 Pt Tyc6541 PT 22.9 seconds 10/15/2017 Pt Brp2537 INR 2.0 10/15/2017 Pt Quy6142 Low Intensity - 1.5-2.0 10/15/2017 Pt Kjw1498 Mod intensity - 2.0-3.0 10/15/2017 Pt Mul4389 Hi intensity - 3.0-4.0 10/15/2017 Pt Tgf9423 PT 25.9 seconds 10/01/2017 Pt Zgz0862 INR 2.4 10/01/2017 Pt Efi8578 Low Intensity - 1.5-2.0 10/01/2017 Pt Ecn8114 Mod intensity - 2.0-3.0 10/01/2017 Pt Mwl8207 Hi intensity - 3.0-4.0 10/01/2017 Pt Msi7395 PT 20.6 seconds 09/24/2017 Pt Nok1523 INR 1.8 09/24/2017 Pt Vie6921 Low Intensity - 1.5-2.0 09/24/2017 [address]4372 Mod intensity - 2.0-3.0 09/24/2017 Pt Pfq6571 Hi intensity - 3.0-4.0 09/24/2017 Pt Vps1647 PT 21.0 seconds 09/15/2017 Pt Ebr4449 INR 1.8 09/15/2017 Pt Pzc5342 Low Intensity - 1.5-2.0 09/15/2017 Pt Ofs0777 Mod intensity - 2.0-3.0 09/15/2017 Pt Aoa3507 Hi intensity - 3.0-4.0 09/15/2017 Pt Gzr4914 PT 19.0 seconds 09/03/2017 Pt Wmt2165 INR 1.6 09/03/2017 Pt Odj7441 Low Intensity - 1.5-2.0 09/03/2017 Pt Csu4025 Mod intensity - 2.0-3.0 09/03/2017 Pt Sye7118 Hi intensity - 3.0-4.0 09/03/2017 Pt Djk7677 PT 17.6 seconds 08/23/2017 Pt Wiv3792 INR 1.5 08/23/2017 Pt Apq6392 Low Intensity - 1.5-2.0 08/23/2017 Pt Cyu6778 Mod intensity - 2.0-3.0 08/23/2017 Pt Mdz6707 Hi intensity - 3.0-4.0 08/23/2017 Pt Knb8109 PT 12.7 seconds 08/20/2017 Pt Bgx8373 INR 1.0 08/20/2017 Pt Kgf1442 Low Intensity - 1.5-2.0 08/20/2017 Pt Rih5910 Mod intensity - 2.0-3.0 08/20/2017 Pt Qtn2445 Hi intensity - 3.0-4.0 08/20/2017 Pt Vrq2505 PT 12.9 seconds 08/17/2017 Pt Lnn4448 INR 1.0 08/17/2017 Pt Mwo5454 Low Intensity - 1.5-2.0 08/17/2017 Pt Zzt3851 Mod intensity - 2.0-3.0 08/17/2017 Pt Npa6241 Hi intensity - 3.0-4.0 08/17/2017 Pt Ten1994 PT 18.5 seconds 08/10/2017 Pt Sxa3753 INR 1.6 08/10/2017 Pt Whh9918 Low Intensity - 1.5-2.0 08/10/2017 Pt Uvo8855 Mod intensity - 2.0-3.0 08/10/2017 Pt Jgk7492 Hi intensity - 3.0-4.0 08/10/2017 Tsh Ord6 hTSH II 2.08 uIU/mL 05/27/2017 Cbc With Differential Ord2 WBC 7.53 K/ul 05/27/2017 Cbc With Differential Ord2 RBC 4.60 M/ul 05/27/2017 Cbc With Differential Ord2 HGB 13.5 g/dl 05/27/2017 Cbc With Differential Ord2 HCT 40.4 % 05/27/2017 Cbc With Differential Ord2 Neut% 72.9 % 05/27/2017 Cbc With Differential Ord2 MCV 87.8 fl 05/27/2017 Cbc With Differential Ord2 Lymph% 14.7 % 05/27/2017 Cbc With Differential Ord2 MCH 29.3 pg 05/27/2017 Cbc With Differential Ord2 [place]% 8.1 % 05/27/2017 Cbc With Differential Ord2 MCHC 33.4 pg 05/27/2017 Cbc With Differential Ord2 Eos% 3.2 % 05/27/2017 Cbc With Differential Ord2 PLT 239 K/ul 05/27/2017 Cbc With Differential Ord2 Baso% 1.1 % 05/27/2017 Cbc With Differential Ord2 RDW 14.4 % 05/27/2017 Cbc With Differential Ord2 Neut ABS# 5.49 K/ul 05/27/2017 Cbc With Differential Ord2 Lymph ABS# 1.11 K/ul 05/27/2017 Cbc With Differential Ord2 [place] ABS# 0.6 K/ul 05/27/2017 Cbc With Differential Ord2 Eos ABS# 0.2 K/ul 05/27/2017 Cbc With Differential Ord2 Baso ABS# 0.1 K/ul 05/27/2017 Pt Ete0112 PT 28.2 seconds 05/27/2017 Pt Vbf6285 INR 2.6 05/27/2017 Pt Poc8430 Low Intensity - 1.5-2.0 05/27/2017 Pt Sbk5440 Mod intensity - 2.0-3.0 05/27/2017 Pt Vzg1639 Hi intensity - 3.0-4.0 05/27/2017 Lipid Ord30 CHOL 167 mg/dL 05/27/2017 Lipid Ord30 HDL 49.0 mg/dl 05/27/2017 Lipid Ord30 TRIG 347 mg/dL 05/27/2017 Lipid Ord30 LDL 49 mg/dL 05/27/2017 Lipid Ord30 C/HDL 3.4 Ratio 05/27/2017 Magnesium Ord90 Mag 1.4 mg/dL 05/27/2017 %Hba1C Oxc501 % HbA1c 09787-5 5.9 % 05/27/2017 %Hba1C Mut224 Gluc Ave 123 mg/dL 05/27/2017 Comp Metabolic Apb473 NA 138 mEq/L 05/27/2017 Comp Metabolic Fkx282 K 4.1 mEq/L 05/27/2017 Comp Metabolic Hjl121 CL 101 mEq/L 05/27/2017 Comp Metabolic Stu751 CO2 31.0 mEq/L 05/27/2017 Comp Metabolic Ywi312 AN ION GAP 10 05/27/2017 Comp Metabolic Yjr986 GL UCOSE 117 mg/dL 05/27/2017 Comp Metabolic Eli780 Cr eat 0.9 mg/dL 05/27/2017 Comp Metabolic Ehs517 eG FR 62 ml/min/1.73m2 05/27 Comp Metabolic Fku122 BUN 25 mg/dL 05/27/2017 Comp Metabolic Zwo473 B/ C Ratio 26.6 Ratio 05/27/2017 Comp Metabolic Nyt580 CA LCIUM 9.5 mg/dL 05/27/2017 Comp Metabolic Qmx966 AL K PHOS 73 U/L 05/27/2017 Comp Metabolic Juz126 T(SGOT) 18 U/L 05/27/2017 Comp Metabolic Ljw601 AL T(SGPT) 12 U/L 05/27/2017 Comp Metabolic Bmy843 BI LI T 0.5 mg/dL 05/27/2017 Comp Metabolic Sby898 AL BUMIN 4.1 g/dL 05/27/2017 Comp Metabolic Dos228 TP RO 7.1 g/dL 05/27/2017 Comp Metabolic Svo045 GL OB 3.0 g/dL 05/27/2017 Comp Metabolic Mxc690 A/ G Ratio 1.3 Ratio 05/27/2017 Comp Metabolic Yii107 Os mo 281 mOsmo 05/27/2017 Free T4 Mbq319 FREE T4 0.91 ng/dL 05/27/2017 Pt Mvz3775 PT 29.2 seconds 04/16/2017 Pt Mlr9652 INR 2.7 04/16/2017 Pt Bzv3291 Low Intensity - 1.5-2.0 04/16/2017 Pt Qkk5150 Mod intensity - 2.0-3.0 04/16/2017 Pt Fak1851 Hi intensity - 3.0-4.0 04/16/2017 Pt Bjb9386 PT 30.7 seconds 03/31/2017 Pt Geu8738 INR 2.9 03/31/2017 Pt Hsk0377 Low Intensity - 1.5-2.0 03/31/2017 Pt Dpq7771 Mod intensity - 2.0-3.0 03/31/2017 Pt Fno8935 Hi intensity - 3.0-4.0 03/31/2017 Pt Uib7034 PT 21.3 seconds 03/26/2017 Pt Utt3124 INR 1.9 03/26/2017 Pt Vaj8554 Low Intensity - 1.5-2.0 03/26/2017 Pt Gvp3680 Mod intensity - 2.0-3.0 03/26/2017 Pt Lbk1559 Hi intensity - 3.0-4.0 03/26/2017 Pt Eyy7639 PT 19.8 seconds 03/22/2017 Pt Btj2463 INR 1.7 03/22/2017 Pt Ihv6698 Low Intensity - 1.5-2.0 03/22/2017 Pt Vpt2338 Mod intensity - 2.0-3.0 03/22/2017 Pt Rei6910 Hi intensity - 3.0-4.0 03/22/2017 Pt Iqn1974 PT 15.6 seconds 03/19/2017 Pt Fwg9011 INR 1.3 03/19/2017 Pt Hah0739 Low Intensity - 1.5-2.0 03/19/2017 Pt Ont7963 Mod intensity - 2.0-3.0 03/19/2017 Pt Ycv9979 Hi intensity - 3.0-4.0 03/19/2017 Pt Dra7293 PT 13.7 seconds 03/15/2017 Pt Vzf0235 INR 1.1 03/15/2017 Pt Elp8695 Low Intensity - 1.5-2.0 03/15/2017 Pt Faf3416 Mod intensity - 2.0-3.0 03/15/2017 Pt Puc9708 Hi intensity - 3.0-4.0 03/15/2017 Pt Wms9919 PT 25.8 seconds 01/28/2017 Pt Fsd7990 INR 2.4 01/28/2017 Pt Gmu2087 Low Intensity - 1.5-2.0 01/28/2017 Pt Rea5536 Mod intensity - 2.0-3.0 01/28/2017 Pt Njq4779 Hi intensity - 3.0-4.0 01/28/2017 %Hba1C Ovy871 % HbA1c 19751-0 6.4 % 10/23/2016 %Hba1C Bbc494 Gluc Ave 137 mg/dL 10/23/2016 Comp Metabolic Brs553 NA 138 mEq/L 10/23/2016 Comp Metabolic Xxu679 K 3.4 mEq/L 10/23/2016 Comp Metabolic Bxk421 CL 100 mEq/L 10/23/2016 Comp Metabolic Iih050 CO2 30.0 mEq/L 10/23/2016 Comp Metabolic Ewi033 AN ION GAP 11 10/23/2016 Comp Metabolic Eeu195 GL UCOSE 139 mg/dL 10/23/2016 Comp Metabolic Aal094 Cr eat 0.9 mg/dL 10/23/2016 Comp Metabolic Qcp777 eG FR 62 ml/min/1.73m2 10/23 Comp Metabolic Fam302 BUN 22 mg/dL 10/23/2016 Comp Metabolic Svl474 B/ C Ratio 23.4 Ratio 10/23/2016 Comp Metabolic Brz941 CA LCIUM 8.7 mg/dL 10/23/2016 Comp Metabolic Tvn783 AL K PHOS 66 U/L 10/23/2016 Comp Metabolic Zlh063 T(SGOT) 20 U/L 10/23/2016 Comp Metabolic Pmm556 AL T(SGPT) 10 U/L 10/23/2016 Comp Metabolic Owu044 BI LI T 0.5 mg/dL 10/23/2016 Comp Metabolic Xwq587 AL BUMIN 3.5 g/dL 10/23/2016 Comp Metabolic Twe110 TP RO 6.3 g/dL 10/23/2016 Comp Metabolic Ujf851 GL OB 2.8 g/dL 10/23/2016 Comp Metabolic Gtv360 A/ G Ratio 1.3 Ratio 10/23/2016 Comp Metabolic Jeb551 Os mo 281 mOsmo 10/23/2016 Pt Adp1154 PT 26.8 seconds 10/23/2016 Pt Ipv9232 INR 2.7 10/23/2016 Pt Hnz1407 Low Intensity - 1.5-2.0 10/23/2016 Pt Drx1743 Mod intensity - 2.0-3.0 10/23/2016 Pt Pof9987 Hi intensity - 3.0-4.0 10/23/2016 Pt Jwx4134 PT 28.3 seconds 09/25/2016 Pt Nut8837 INR 2.8 09/25/2016 Pt Oiw5483 Low Intensity - 1.5-2.0 09/25/2016 Pt Itk3289 Mod intensity - 2.0-3.0 09/25/2016 Pt Uaf7992 Hi intensity - 3.0-4.0 09/25/2016 Metabolic Ord15 NA 138 mEq/L 09/25/2016 Metabolic Ord15 K 3.8 mEq/L 09/25/2016 Metabolic Ord15 CL 102 mEq/L 09/25/2016 Metabolic Ord15 CO2 24.0 mEq/L 09/25/2016 Metabolic Ord15 GLUCOSE 181 mg/dL 09/25/2016 Metabolic Ord15 BUN 21 mg/dL 09/25/2016 Metabolic Ord15 Creat 1.0 mg/dL 09/25/2016 Metabolic Ord15 B/C Ratio 21.2 Ratio 09/25/2016 Metabolic Ord15 eGFR 59 ml/min/1.73m2 09/25/2016 Metabolic Ord15 Osmo 283 mOsmo 09/25/2016 Metabolic Ord15 ANION GAP 16 09/25/2016 Metabolic Ord15 CALCIUM 8.8 mg/dL 09/25/2016 Pt Lro2115 PT 30.6 seconds 09/11/2016 Pt Xxo0590 INR 3.2 09/11/2016 Pt Qvb4483 Low Intensity - 1.5-2.0 09/11/2016 Pt Ire6754 Mod intensity - 2.0-3.0 09/11/2016 Pt Qcs2683 Hi intensity - 3.0-4.0 09/11/2016 Comp Metabolic Yhw175 NA 138 mEq/L 09/11/2016 Comp Metabolic Sed944 K 4.4 mEq/L 09/11/2016 Comp Metabolic Gha088 CL 103 mEq/L 09/11/2016 Comp Metabolic Hzm251 CO2 31.0 mEq/L 09/11/2016 Comp Metabolic Mec524 AN ION GAP 8 09/11/2016 Comp Metabolic Nqc705 GL UCOSE 146 mg/dL 09/11/2016 Comp Metabolic Kxp090 Cr eat 1.0 mg/dL 09/11/2016 Comp Metabolic Vbf717 eG FR 60 ml/min/1.73m2 09/11 Comp Metabolic Ngv477 BUN 16 mg/dL 09/11/2016 Comp Metabolic Zyp612 B/ C Ratio 16.5 Ratio 09/11/2016 Comp Metabolic Qtt222 CA LCIUM 8.7 mg/dL 09/11/2016 Comp Metabolic Kvr165 AL K PHOS 52 U/L 09/11/2016 Comp Metabolic Bfx515 T(SGOT) 19 U/L 09/11/2016 Comp Metabolic Rvf564 AL T(SGPT) 11 U/L 09/11/2016 Comp Metabolic Aes131 BI LI T 0.7 mg/dL 09/11/2016 Comp Metabolic Qgh013 AL BUMIN 3.3 g/dL 09/11/2016 Comp Metabolic Ekt788 TP RO 5.8 g/dL 09/11/2016 Comp Metabolic Tjr307 GL OB 2.5 g/dL 09/11/2016 Comp Metabolic Fmh888 A/ G Ratio 1.3 Ratio 09/11/2016 Comp Metabolic Bro613 Os mo 280 mOsmo 09/11/2016 C-Reactive Protein Qnt Crqnt CRP 0.1 mg/dl 08/21/2016 Comp Metabolic Ajf843 NA 139 mEq/L 08/21/2016 Comp Metabolic Tsi972 K 4.1 mEq/L 08/21/2016 Comp Metabolic Ttm892 CL 102 mEq/L 08/21/2016 Comp Metabolic Sqc500 CO2 30.0 mEq/L 08/21/2016 Comp Metabolic Xrz652 AN ION GAP 11 08/21/2016 Comp Metabolic Pzz957 GL UCOSE 148 mg/dL 08/21/2016 Comp Metabolic Irr697 Cr eat 1.0 mg/dL 08/21/2016 Comp Metabolic Cok324 eG FR 55 ml/min/1.73m2 08/21 Comp Metabolic Xcr712 BUN 21 mg/dL 08/21/2016 Comp Metabolic Zon538 B/ C Ratio 20.2 Ratio 08/21/2016 Comp Metabolic Ihu982 CA LCIUM 9.4 mg/dL 08/21/2016 Comp Metabolic Qbx754 AL K PHOS 63 U/L 08/21/2016 Comp Metabolic Usb793 T(SGOT) 23 U/L 08/21/2016 Comp Metabolic Sne934 AL T(SGPT) 16 U/L 08/21/2016 Comp Metabolic Tfj413 BI LI T 0.6 mg/dL 08/21/2016 Comp Metabolic Gsl380 AL BUMIN 3.9 g/dL 08/21/2016 Comp Metabolic Ihc480 TP RO 6.8 g/dL 08/21/2016 Comp Metabolic Ovj648 GL OB 2.9 g/dL 08/21/2016 Comp Metabolic Mkm472 A/ G Ratio 1.4 Ratio 08/21/2016 Comp Metabolic Cbf758 Os mo 283 mOsmo 08/21/2016 Sed Rate Ord21 ESR 16 mm/hr 08/21/2016 Pt Osr7190 PT 27.2 seconds 08/21/2016 Pt Sbu2455 INR 2.7 08/21/2016 Pt Cwb9705 Low Intensity - 1.5-2.0 08/21/2016 Pt Cwn6545 Mod intensity - 2.0-3.0 08/21/2016 Pt Mbn7571 Hi intensity - 3.0-4.0 08/21/2016 Magnesium Ord90 Mag 1.9 mg/dL 08/21/2016 Pt Htz5736 PT 25.9 seconds 06/17/2016 Pt Nys3722 INR 2.5 06/17/2016 Pt Sbp9232 Low Intensity - 1.5-2.0 06/17/2016 Pt Rrm8303 Mod intensity - 2.0-3.0 06/17/2016 Pt Bxi6647 Hi intensity - 3.0-4.0 06/17/2016 Tsh Ord6 hTSH II 2.13 uIU/mL 06/08/2016 Free T4 Ndg116 FREE T4 0.79 ng/dL 06/08/2016 Cbc With Differential Ord2 WBC 5.75 K/ul 06/08/2016 Cbc With Differential Ord2 RBC 4.59 M/ul 06/08/2016 Cbc With Differential Ord2 HGB 12.3 g/dl 06/08/2016 Cbc With Differential Ord2 HCT 37.1 % 06/08/2016 Cbc With Differential Ord2 Neut% 57.0 % 06/08/2016 Cbc With Differential Ord2 MCV 80.8 fl 06/08/2016 Cbc With Differential Ord2 Lymph% 24.3 % 06/08/2016 Cbc With Differential Ord2 MCH 26.8 pg 06/08/2016 Cbc With Differential Ord2 [place]% 12.0 % 06/08/2016 Cbc With Differential Ord2 MCHC 33.2 pg 06/08/2016 Cbc With Differential Ord2 Eos% 5.0 % 06/08/2016 Cbc With Differential Ord2 PLT 196 K/ul 06/08/2016 Cbc With Differential Ord2 Baso% 1.7 % 06/08/2016 Cbc With Differential Ord2 RDW 16.0 % 06/08/2016 Cbc With Differential Ord2 Neut ABS# 3.27 K/ul 06/08/2016 Cbc With Differential Ord2 Lymph ABS# 1.40 K/ul 06/08/2016 Cbc With Differential Ord2 [place] ABS# 0.7 K/ul 06/08/2016 Cbc With Differential Ord2 Eos ABS# 0.3 K/ul 06/08/2016 Cbc With Differential Ord2 Baso ABS# 0.1 K/ul 06/08/2016 %Hba1C Cpn193 % HbA1c 79652-5 6.2 % 06/08/2016 %Hba1C Gbk134 Gluc Ave 131 mg/dL 06/08/2016 Comp Metabolic Vml175 NA 138 mEq/L 06/08/2016 Comp Metabolic Jpb867 K 3.9 mEq/L 06/08/2016 Comp Metabolic Die587 CL 105 mEq/L 06/08/2016 Comp Metabolic Oxi286 CO2 27.0 mEq/L 06/08/2016 Comp Metabolic Slt975 AN ION GAP 10 06/08/2016 Comp Metabolic Vgv799 GL UCOSE 127 mg/dL 06/08/2016 Comp Metabolic Vsf634 Cr eat 1.0 mg/dL 06/08/2016 Comp Metabolic Uqo176 eG FR 59 ml/min/1.73m2 06/08 Comp Metabolic Mck908 BUN 19 mg/dL 06/08/2016 Comp Metabolic Ent242 B/ C Ratio 19.4 Ratio 06/08/2016 Comp Metabolic Zew616 CA LCIUM 9.2 mg/dL 06/08/2016 Comp Metabolic Rho895 AL K PHOS 77 U/L 06/08/2016 Comp Metabolic Wna052 T(SGOT) 19 U/L 06/08/2016 Comp Metabolic Stj807 AL T(SGPT) 13 U/L 06/08/2016 Comp Metabolic Ndc827 BI LI T 0.5 mg/dL 06/08/2016 Comp Metabolic Sso491 AL BUMIN 3.8 g/dL 06/08/2016 Comp Metabolic Kmz516 TP RO 6.6 g/dL 06/08/2016 Comp Metabolic Tns795 GL OB 2.8 g/dL 06/08/2016 Comp Metabolic Kim412 A/ G Ratio 1.4 Ratio 06/08/2016 Comp Metabolic Ndp484 Os mo 280 mOsmo 06/08/2016 Pt Gkn2805 PT 36.1 seconds 06/08/2016 Pt Fae8412 INR 3.9 06/08/2016 Pt Rgd7185 Low Intensity - 1.5-2.0 06/08/2016 Pt Ppq5736 Mod intensity - 2.0-3.0 06/08/2016 Pt Hnn8375 Hi intensity - 3.0-4.0 06/08/2016 Lipid Ord30 CHOL 149 mg/dL 06/08/2016 Lipid Ord30 HDL 46.0 mg/dl 06/08/2016 Lipid Ord30 TRIG 279 mg/dL 06/08/2016 Lipid Ord30 LDL 47 mg/dL 06/08/2016 Lipid Ord30 C/HDL 3.2 Ratio 06/08/2016 Pt Xrm8721 PT 30.9 seconds 02/12/2016 Pt Iss9022 INR 3.2 02/12/2016 Pt Kns7115 Low Intensity - 1.5-2.0 02/12/2016 Pt Zfi4252 Mod intensity - 2.0-3.0 02/12/2016 Pt Kfn5128 Hi intensity - 3.0-4.0 02/12/2016 Free T4 Mmd690 FREE T4 1.24 ng/dL 09/27/2015 %Hba1C Qgd644 % HbA1c 14546-5 6.4 % 09/27/2015 %Hba1C Cyp396 Gluc Ave 137 mg/dL 09/27/2015 Tsh Ord6 hTSH II 0.37 uIU/mL 09/27/2015 Pt Kdr6832 PT 26.2 seconds 09/27/2015 Pt Zim6999 INR 2.5 09/27/2015 Pt Kxv2481 Low Intensity - 1.5-2.0 09/27/2015 Pt Zgl4263 Mod intensity - 2.0-3.0 09/27/2015 Pt Ryk9791 Hi intensity - 3.0-4.0 09/27/2015 Pt Cur9214 PT 27.6 seconds 2015 Pt Iqj2044 INR 2.7 2015 Pt Sos3343 Low Intensity - 1.5-2.0 2015 Pt Kma3289 Mod intensity - 2.0-3.0 2015 Pt Sbj8848 Hi intensity - 3.0-4.0 2015 %Hba1C Xxu068 % HbA1c 32749-4 6.1 % 06/11/2015 %Hba1C Sdp307 Gluc Ave 128 mg/dL 06/11/2015 Cbc With Differential Ord2 WBC 6.4 K/uL 06/10/2015 Cbc With Differential Ord2 LYM 1.3 K/uL 06/10/2015 Cbc With Differential Ord2 LYM% 20.4 % 06/10/2015 Cbc With Differential Ord2 NEUT/GRAN 4.7 K/uL 06/10/2015 Cbc With Differential Ord2 NEUT/GRAN % 73.9 % 06/10/2015 Cbc With Differential Ord2 MID 0.4 K/uL 06/10/2015 Cbc With Differential Ord2 MID% 5.7 % 06/10/2015 Cbc With Differential Ord2 RBC 4.75 M/uL 06/10/2015 Cbc With Differential Ord2 HGB 13.3 g/dL 06/10/2015 Cbc With Differential Ord2 HCT 43.2 % 06/10/2015 Cbc With Differential Ord2 MCV 91 fL 06/10/2015 Cbc With Differential Ord2 MCH 28 pg 06/10/2015 Cbc With Differential Ord2 MCHC 31 g/dL 06/10/2015 Cbc With Differential Ord2 PLT 217 K/uL 06/10/2015 Cbc With Differential Ord2 RDW 15.8 % 06/10/2015 Comp Metabolic Qbs891 NA 139 mEq/L 06/10/2015 Comp Metabolic Ynu591 K 4.1 mEq/L 06/10/2015 Comp Metabolic Kwr267 CL 105 mEq/L 06/10/2015 Comp Metabolic Mzs446 CO2 27.0 mEq/L 06/10/2015 Comp Metabolic Tgv788 AN ION GAP 11 06/10/2015 Comp Metabolic Qpn532 GL UCOSE 127 mg/dL 06/10/2015 Comp Metabolic Rit210 Cr eat 1.0 mg/dL 06/10/2015 Comp Metabolic Cjm404 eG FR 59 ml/min/1.73m2 06/10 Comp Metabolic Kme571 BUN 21 mg/dL 06/10/2015 Comp Metabolic Pxo135 B/ C Ratio 21.2 Ratio 06/10/2015 Comp Metabolic Jfh787 CA LCIUM 9.2 mg/dL 06/10/2015 Comp Metabolic Swm992 AL K PHOS 87 U/L 06/10/2015 Comp Metabolic Fvv151 T(SGOT) 20 U/L 06/10/2015 Comp Metabolic Hlb920 AL T(SGPT) 17 U/L 06/10/2015 Comp Metabolic Pwg227 BI LI T 0.4 mg/dL 06/10/2015 Comp Metabolic Fow281 AL BUMIN 4.1 g/dL 06/10/2015 Comp Metabolic Lte741 TP RO 7.2 g/dL 06/10/2015 Comp Metabolic Pxd010 GL OB 3.1 g/dL 06/10/2015 Comp Metabolic Bde458 A/ G Ratio 1.3 Ratio 06/10/2015 Comp Metabolic Ghd242 Os mo 282 mOsmo 06/10/2015 Tsh Ord6 hTSH II 0.86 uIU/mL 06/10/2015 Lipid Ord30 CHOL 161 mg/dL 06/10/2015 Lipid Ord30 HDL 49.0 mg/dl 06/10/2015 Lipid Ord30 TRIG 208 mg/dL 06/10/2015 Lipid Ord30 LDL 70 mg/dL 06/10/2015 Lipid Ord30 C/HDL 3.3 Ratio 06/10/2015 Pt Ijs3738 PT 25.0 seconds 04/09/2015 Pt Ucj4236 INR 2.4 04/09/2015 Pt Ihv6076 Low Intensity - 1.5-2.0 04/09/2015 Pt Nle4299 Mod intensity - 2.0-3.0 04/09/2015 Pt Jwv6380 Hi intensity - 3.0-4.0 04/09/2015 Free T4 Rwj209 FREE T4 1.05 ng/dL 01/22/2015 Pt Bpb4154 PT 27.2 seconds 01/22/2015 Pt Ede4710 INR 2.6 01/22/2015 Pt Tez6063 Low Intensity - 1.5-2.0 01/22/2015 Pt Xnn8806 Mod intensity - 2.0-3.0 01/22/2015 Pt Nwz7841 Hi intensity - 3.0-4.0 01/22/2015 Cbc With Differential Ord2 WBC 5.6 K/uL 01/22/2015 Cbc With Differential Ord2 LYM 1.3 K/uL 01/22/2015 Cbc With Differential Ord2 LYM% 23.8 % 01/22/2015 Cbc With Differential Ord2 NEUT/GRAN 3.8 K/uL 01/22/2015 Cbc With Differential Ord2 NEUT/GRAN % 67.7 % 01/22/2015 Cbc With Differential Ord2 MID 0.5 K/uL 01/22/2015 Cbc With Differential Ord2 MID% 8.5 % 01/22/2015 Cbc With Differential Ord2 RBC 4.71 M/uL 01/22/2015 Cbc With Differential Ord2 HGB 13.5 g/dL 01/22/2015 Cbc With Differential Ord2 HCT 42.3 % 01/22/2015 Cbc With Differential Ord2 MCV 90 fL 01/22/2015 Cbc With Differential Ord2 MCH 29 pg 01/22/2015 Cbc With Differential Ord2 MCHC 32 g/dL 01/22/2015 Cbc With Differential Ord2 PLT 190 K/uL 01/22/2015 Cbc With Differential Ord2 RDW 15.2 % 01/22/2015 B12 Bkn273 B12 402.00 pg/ml 01/22/2015 Tsh Ord6 hTSH II 0.65 uIU/mL 01/22/2015 Lipid Ord30 CHOL 166 mg/dL 01/22/2015 Lipid Ord30 HDL 48.0 mg/dl 01/22/2015 Lipid Ord30 TRIG 264 mg/dL 01/22/2015 Lipid Ord30 LDL 65 mg/dL 01/22/2015 Lipid Ord30 C/HDL 3.5 Ratio 01/22/2015 Comp Metabolic Cfp962 NA 138 mEq/L 01/22/2015 Comp Metabolic Zlz182 K 4.1 mEq/L 01/22/2015 Comp Metabolic Mui656 CL 104 mEq/L 01/22/2015 Comp Metabolic Dxz270 CO2 29.0 mEq/L 01/22/2015 Comp Metabolic Ocz215 AN ION GAP 9 01/22/2015 Comp Metabolic Utz357 GL UCOSE 106 mg/dL 01/22/2015 Comp Metabolic Ohg249 Cr eat 0.9 mg/dL 01/22/2015 Comp Metabolic Azp057 eG FR 63 ml/min/1.73m2 01/22 Comp Metabolic Ace356 BUN 21 mg/dL 01/22/2015 Comp Metabolic Hlj283 B/ C Ratio 22.3 Ratio 01/22/2015 Comp Metabolic Gsc445 CA LCIUM 9.4 mg/dL 01/22/2015 Comp Metabolic Fqn658 AL K PHOS 83 U/L 01/22/2015 Comp Metabolic Ilr414 T(SGOT) 23 U/L 01/22/2015 Comp Metabolic Frp199 AL T(SGPT) 18 U/L 01/22/2015 Comp Metabolic Xsh805 BI LI T 0.8 mg/dL 01/22/2015 Comp Metabolic Pxn364 AL BUMIN 4.2 g/dL 01/22/2015 Comp Metabolic Jyj721 TP RO 7.3 g/dL 01/22/2015 Comp Metabolic Mep823 GL OB 3.1 g/dL 01/22/2015 Comp Metabolic Hyd892 A/ G Ratio 1.4 Ratio 01/22/2015 Comp Metabolic Ipf848 Os mo 279 mOsmo 01/22/2015 Review of Systems System Result Effective Dates Constitutional recent illness 09/02/2018 Constitutional No chills 09/02/2018 Constitutional No diaphoresis 09/02/2018 Constitutional No fever 09/02/2018 Eyes No eye erythema Ears/Nose/Throat/Neck nasal allergies 09/02/2018 Ears/Nose/Throat/Neck nasal discharge 09/02/2018 Ears/Nose/Throat/Neck postnasal drip 09/02/2018 Ears/Nose/Throat/Neck sinus congestion 09/02/2018 Ears/Nose/Throat/Neck No sore throat 09/02/2018 Cardiovascular No chest pain/pressure 09/02/2018 Cardiovascular No dyspnea 09/02/2018 Respiratory No chest congestion 09/02/2018 Respiratory cough 2018 Respiratory No dyspnea 0 09/02/2018 Gastrointestinal No abdominal pain 09/02/2018 Gastrointestinal No constipation 09/02/2018 Gastrointestinal No diarrhea 09/02/2018 Gastrointestinal No nausea 09/02/2018 Gastrointestinal No vomiting 09/02/2018 Dermatologic No rash Neurologic No alteration of consciousness 09/02/2018 Neurologic No mental status change 09/02/2018 Constitutional No recent illness 04/14/2018 Constitutional No chills 04/14/2018 Constitutional No fever 04/14/2018 Eyes No blindness 2017 Ears/Nose/Throat/Neck No nasal allergies 04/14/2018 Ears/Nose/Throat/Neck No nasal discharge 04/14/2018 Cardiovascular No chest pain/pressure 04/14/2018 Cardiovascular No edema 04/14/2018 Respiratory No cough Respiratory No dyspnea 1 Gastrointestinal No abdominal pain 04/14/2018 Musculoskeletal No stiffness 04/14/2018 Musculoskeletal No joint complaint 04/14/2018 Musculoskeletal No muscle weakness 04/14/2018 Dermatologic No rash Neurologic No alteration of consciousness 04/14/2018 Neurologic No headache 1 Neurologic No mental status change 04/14/2018 Constitutional No anorexia 04/14/2018 Constitutional No night sweats 04/14/2018 Constitutional No diaphoresis 04/14/2018 Constitutional No fatigue 04/14/2018 Constitutional No insomnia 04/14/2018 Constitutional No malaise 04/14/2018 Constitutional weight loss 04/14/2018 Constitutional No weight gain 04/14/2018 Cardiovascular No dyspnea 04/14/2018 Gastrointestinal No constipation 04/14/2018 Gastrointestinal No diarrhea 04/14/2018 Genitourinary/Nephrology No dysuria 04/14/2018 Endocrine No dry or coarse skin 04/14/2018 Psychiatric anxiety 03/22 Constitutional No recent illness 01/18/2018 Constitutional No anorexia 01/18/2018 Constitutional No night sweats 01/18/2018 Constitutional No chills 01/18/2018 Constitutional diaphoresis 01/18/2018 Constitutional fatigue 0 01/18/2018 Constitutional No fever 01/18/2018 Constitutional No insomnia 01/18/2018 Constitutional No malaise 01/18/2018 Constitutional No weight loss 01/18/2018 Constitutional No weight gain 01/18/2018 Eyes No eye discharge Eyes No eye erythema Ears/Nose/Throat/Neck headache 01/18/2018 Cardiovascular edema Respiratory No productive sputum 01/18/2018 Respiratory cough 2017 Gastrointestinal abdominal pain 01/18/2018 Gastrointestinal gastroesophageal reflux 01/18/2018 Genitourinary/Nephrology No dysuria 01/18/2018 Musculoskeletal joint complaint 01/18/2018 Dermatologic No rash Neurologic No alteration of consciousness 01/18/2018 Psychiatric No depression 01/18/2018 Cardiovascular edema Gastrointestinal gastroesophageal reflux 01/04/2018 Respiratory cough 2017 Respiratory No productive sputum 01/04/2018 Constitutional No recent illness 01/04/2018 Constitutional No anorexia 01/04/2018 Constitutional No night sweats 01/04/2018 Constitutional No chills 01/04/2018 Constitutional diaphoresis 01/04/2018 Constitutional fatigue 0 01/04/2018 Constitutional No fever 01/04/2018 Constitutional No insomnia 01/04/2018 Constitutional No malaise 01/04/2018 Constitutional No weight loss 01/04/2018 Constitutional No weight gain 01/04/2018 Eyes No eye discharge Eyes No eye erythema Ears/Nose/Throat/Neck headache 01/04/2018 Genitourinary/Nephrology No dysuria 01/04/2018 Gastrointestinal abdominal pain 01/04/2018 Musculoskeletal joint complaint 01/04/2018 Dermatologic No rash Neurologic No alteration of consciousness 01/04/2018 Constitutional recent illness 09/23/2017 Constitutional No anorexia 09/23/2017 Constitutional No night sweats 09/23/2017 Constitutional No chills 09/23/2017 Constitutional No diaphoresis 09/23/2017 Constitutional fatigue 0 09/23/2017 Constitutional No fever 09/23/2017 Constitutional No insomnia 09/23/2017 Constitutional No malaise 09/23/2017 Eyes No eye discharge Eyes No eye erythema 10/2017 Ears/Nose/Throat/Neck nasal allergies 09/23/2017 Ears/Nose/Throat/Neck nasal discharge 09/23/2017 Ears/Nose/Throat/Neck No otalgia 09/23/2017 Ears/Nose/Throat/Neck sinus congestion 09/23/2017 Ears/Nose/Throat/Neck sore throat 09/23/2017 Cardiovascular No chest pain/pressure 09/23/2017 Cardiovascular No dyspnea 09/23/2017 Respiratory cough 2017 Gastrointestinal abdominal pain 09/23/2017 Genitourinary/Nephrology No dysuria 09/23/2017 Musculoskeletal joint complaint 09/23/2017 Dermatologic sores 09/23 Neurologic No alteration of consciousness 09/23/2017 Psychiatric No anxiety 0 09/23/2017 Endocrine No dry or coarse skin 09/23/2017 Constitutional recent illness 05/27/2017 Constitutional No anorexia 05/27/2017 Constitutional No night sweats 05/27/2017 Constitutional No chills 05/27/2017 Constitutional No diaphoresis 05/27/2017 Constitutional No fatigue 05/27/2017 Constitutional No fever 05/27/2017 Constitutional No insomnia 05/27/2017 Constitutional No malaise 05/27/2017 Constitutional No weight loss 05/27/2017 Constitutional No weight gain 05/27/2017 Eyes No eye discharge Eyes No eye erythema 12/2016 Ears/Nose/Throat/Neck nasal allergies 05/27/2017 Ears/Nose/Throat/Neck nasal discharge 05/27/2017 Ears/Nose/Throat/Neck No otalgia 05/27/2017 Ears/Nose/Throat/Neck sinus congestion 05/27/2017 Ears/Nose/Throat/Neck sore throat 05/27/2017 Cardiovascular No chest pain/pressure 05/27/2017 Cardiovascular No dyspnea 05/27/2017 Respiratory cough 2016 Gastrointestinal No abdominal pain 05/27/2017 Genitourinary/Nephrology No dysuria 05/27/2017 Musculoskeletal joint complaint 05/27/2017 Dermatologic sores 05/27 Neurologic No alteration of consciousness 05/27/2017 Psychiatric No anxiety 1 07/28/2016 Endocrine No dry or coarse skin 05/27/2017 Constitutional No recent illness 02/24/2017 Constitutional No chills 02/24/2017 Constitutional No diaphoresis 02/24/2017 Constitutional No fever 02/24/2017 Eyes No eye erythema 11/2016 Ears/Nose/Throat/Neck No nasal discharge 02/24/2017 Cardiovascular No chest pain/pressure 02/24/2017 Cardiovascular No dyspnea 02/24/2017 Cardiovascular No edema 02/24/2017 Respiratory No cough 11/2016 Respiratory No dyspnea 0 02/24/2017 Ears/Nose/Throat/Neck No nasal allergies 02/24/2017 Ears/Nose/Throat/Neck No sore throat 02/24/2017 Respiratory No chest congestion 02/24/2017 Gastrointestinal No abdominal pain 02/24/2017 Gastrointestinal No vomiting 02/24/2017 Gastrointestinal No nausea 02/24/2017 Musculoskeletal joint complaint 02/24/2017 Dermatologic No rash 11/2016 Neurologic No alteration of consciousness 02/24/2017 Neurologic No mental status change 02/24/2017 Constitutional No recent illness 11/02/2016 Constitutional No chills 11/02/2016 Constitutional No fever 11/02/2016 Constitutional obesity 0 11/02/2016 Eyes No blindness 2016 Ears/Nose/Throat/Neck No nasal allergies 11/02/2016 Ears/Nose/Throat/Neck No nasal discharge 11/02/2016 Cardiovascular No chest pain/pressure 11/02/2016 Cardiovascular edema Respiratory No cough Respiratory No dyspnea 0 11/02/2016 Gastrointestinal No abdominal pain 11/02/2016 Gastrointestinal gastroesophageal reflux 11/02/2016 Musculoskeletal No stiffness 11/02/2016 Musculoskeletal No joint complaint 11/02/2016 Musculoskeletal No muscle weakness 11/02/2016 Dermatologic No rash Neurologic No alteration of consciousness 11/02/2016 Neurologic No headache 0 11/02/2016 Neurologic No mental status change 11/02/2016 Psychiatric anxiety 10/19 Constitutional No recent illness 09/30/2016 Constitutional No chills 09/30/2016 Constitutional No fever 09/30/2016 Eyes No blindness 2016 Ears/Nose/Throat/Neck No nasal allergies 09/30/2016 Ears/Nose/Throat/Neck No nasal discharge 09/30/2016 Cardiovascular No chest pain/pressure 09/30/2016 Cardiovascular edema 05/2017 Respiratory No cough 05/2017 Respiratory No dyspnea 0 09/30/2016 Gastrointestinal No abdominal pain 09/30/2016 Musculoskeletal No joint complaint 09/30/2016 Dermatologic No rash 05/2017 Neurologic No alteration of consciousness 09/30/2016 Neurologic No mental status change 09/30/2016 Constitutional obesity 0 09/30/2016 Gastrointestinal gastroesophageal reflux 09/30/2016 Musculoskeletal No stiffness 09/30/2016 Musculoskeletal No muscle weakness 09/30/2016 Psychiatric anxiety 09/19 Neurologic No headache 0 09/30/2016 Constitutional No recent illness 09/10/2016 Constitutional No chills 09/10/2016 Constitutional No fever 09/10/2016 Eyes No eye erythema Ears/Nose/Throat/Neck No nasal allergies 09/10/2016 Ears/Nose/Throat/Neck No nasal discharge 09/10/2016 Cardiovascular No chest pain/pressure 09/10/2016 Cardiovascular edema Respiratory No cough Respiratory No dyspnea 0 09/10/2016 Gastrointestinal No abdominal pain 09/10/2016 Dermatologic No rash Neurologic No alteration of consciousness 09/10/2016 Neurologic No mental status change 09/10/2016 Constitutional No recent illness 08/20/2016 Constitutional No chills 08/20/2016 Constitutional No fever 08/20/2016 Eyes No eye erythema 07/2016 Ears/Nose/Throat/Neck No nasal discharge 08/20/2016 Ears/Nose/Throat/Neck No nasal allergies 08/20/2016 Cardiovascular No chest pain/pressure 08/20/2016 Respiratory No cough 07/2016 Respiratory No dyspnea 0 08/20/2016 Gastrointestinal No abdominal pain 08/20/2016 Cardiovascular edema 07/2016 Musculoskeletal No joint complaint 08/20/2016 Dermatologic No rash 07/2016 Neurologic No alteration of consciousness 08/20/2016 Neurologic No mental status change 08/20/2016 Constitutional No recent illness 06/08/2016 Constitutional No chills 06/08/2016 Constitutional No diaphoresis 06/08/2016 Constitutional No fever 06/08/2016 Eyes No eye discharge Eyes No eye erythema Cardiovascular No chest pain/pressure 06/08/2016 Cardiovascular No dyspnea 06/08/2016 Respiratory No cough Gastrointestinal No abdominal pain 06/08/2016 Dermatologic No rash Neurologic No alteration of consciousness 06/08/2016 Ears/Nose/Throat/Neck No nasal discharge 06/08/2016 Ears/Nose/Throat/Neck No nasal allergies 06/08/2016 Cardiovascular edema Respiratory No chest congestion 06/08/2016 Respiratory No dyspnea 1 08/09/2015 Gastrointestinal No vomiting 06/08/2016 Gastrointestinal No nausea 06/08/2016 Neurologic No mental status change 06/08/2016 Constitutional chills Constitutional No diaphoresis 04/02/2016 Constitutional No fever 04/02/2016 Eyes No eye discharge Eyes No eye erythema Cardiovascular No chest pain/pressure 04/02/2016 Cardiovascular No dyspnea 04/02/2016 Respiratory productive sputum 04/02/2016 Respiratory cough 2015 Dermatologic No rash Neurologic No alteration of consciousness 04/02/2016 Constitutional recent illness 04/02/2016 Ears/Nose/Throat/Neck nasal discharge 04/02/2016 Ears/Nose/Throat/Neck nasal allergies 04/02/2016 Ears/Nose/Throat/Neck No sore throat 04/02/2016 Ears/Nose/Throat/Neck No sinus congestion 04/02/2016 Ears/Nose/Throat/Neck postnasal drip 04/02/2016 Respiratory chest congestion 04/02/2016 Respiratory No dyspnea 1 Neurologic No mental status change 04/02/2016 Constitutional No fever 01/14/2016 Eyes No eye discharge Eyes No eye erythema Ears/Nose/Throat/Neck No nasal allergies 01/14/2016 Ears/Nose/Throat/Neck No nasal discharge 01/14/2016 Cardiovascular No chest pain/pressure 01/14/2016 Cardiovascular No dyspnea 01/14/2016 Gastrointestinal abdominal pain 01/14/2016 Gastrointestinal No constipation 01/14/2016 Dermatologic No rash Neurologic No alteration of consciousness 01/14/2016 Respiratory No dyspnea 0 01/14/2016 Gastrointestinal diarrhea 01/14/2016 Gastrointestinal No nausea 01/14/2016 Gastrointestinal No vomiting 01/14/2016 Musculoskeletal No joint complaint 01/14/2016 Neurologic No mental status change 01/14/2016 Constitutional No recent illness 10/02/2015 Constitutional No chills 10/02/2015 Constitutional No diaphoresis 10/02/2015 Constitutional No fatigue 10/02/2015 Constitutional No fever 10/02/2015 Constitutional No insomnia 10/02/2015 Constitutional No malaise 10/02/2015 Eyes No eye discharge Eyes No eye erythema Ears/Nose/Throat/Neck No nasal allergies 10/02/2015 Ears/Nose/Throat/Neck No nasal discharge 10/02/2015 Cardiovascular No chest pain/pressure 10/02/2015 Cardiovascular No dyspnea 10/02/2015 Respiratory No productive sputum 10/02/2015 Respiratory No cough Gastrointestinal No abdominal pain 10/02/2015 Gastrointestinal No constipation 10/02/2015 Gastrointestinal No diarrhea 10/02/2015 Dermatologic No rash Dermatologic No sores Neurologic No alteration of consciousness 10/02/2015 Musculoskeletal joint complaint 10/02/2015 Constitutional No recent illness 07/15/2015 Constitutional No anorexia 07/15/2015 Constitutional No night sweats 07/15/2015 Constitutional No chills 07/15/2015 Constitutional No diaphoresis 07/15/2015 Constitutional No fatigue 07/15/2015 Constitutional No fever 07/15/2015 Constitutional No insomnia 07/15/2015 Constitutional No malaise 07/15/2015 Eyes No eye discharge Eyes No eye erythema Cardiovascular No chest pain/pressure 07/15/2015 Cardiovascular No dyspnea 07/15/2015 Cardiovascular edema Respiratory No productive sputum 07/15/2015 Respiratory No cough Gastrointestinal No abdominal pain 07/15/2015 Gastrointestinal No constipation 07/15/2015 Gastrointestinal No diarrhea 07/15/2015 Dermatologic No rash Dermatologic No sores Neurologic No alteration of consciousness 07/15/2015 Ears/Nose/Throat/Neck No nasal allergies 07/15/2015 Ears/Nose/Throat/Neck No nasal discharge 07/15/2015 Ears/Nose/Throat/Neck No headache 07/15/2015 Ears/Nose/Throat/Neck No sinus congestion 07/15/2015 Ears/Nose/Throat/Neck No sore throat 07/15/2015 Musculoskeletal joint complaint 07/15/2015 Constitutional No recent illness 06/10/2015 Constitutional No anorexia 06/10/2015 Constitutional No night sweats 06/10/2015 Constitutional No chills 06/10/2015 Constitutional No diaphoresis 06/10/2015 Constitutional No fatigue 06/10/2015 Constitutional No fever 06/10/2015 Constitutional No insomnia 06/10/2015 Constitutional No malaise 06/10/2015 Constitutional No weight loss 06/10/2015 Constitutional weight gain 06/10/2015 Eyes No eye discharge Eyes No eye erythema Ears/Nose/Throat/Neck No dizziness 06/10/2015 Ears/Nose/Throat/Neck No headache 06/10/2015 Cardiovascular No chest pain/pressure 06/10/2015 Cardiovascular No dyspnea 06/10/2015 Cardiovascular edema Respiratory No productive sputum 06/10/2015 Respiratory No cough Gastrointestinal No abdominal pain 06/10/2015 Gastrointestinal No constipation 06/10/2015 Gastrointestinal No diarrhea 06/10/2015 Genitourinary/Nephrology No dysuria 06/10/2015 Musculoskeletal joint complaint 06/10/2015 Dermatologic No rash Dermatologic No sores Neurologic No alteration of consciousness 06/10/2015 Constitutional weight gain 01/22/2015 Constitutional obesity 0 01/22/2015 Gastrointestinal abdominal pain 01/22/2015 Psychiatric anxiety 0809/2014 Gastrointestinal gastroesophageal reflux 01/22/2015 Eyes No blindness 2014 Eyes No vision change Ears/Nose/Throat/Neck No dental pain 01/22/2015 Ears/Nose/Throat/Neck No dizziness 01/22/2015 Ears/Nose/Throat/Neck No dysphagia 01/22/2015 Ears/Nose/Throat/Neck No headache 01/22/2015 Ears/Nose/Throat/Neck No hearing loss 01/22/2015 Ears/Nose/Throat/Neck No nasal allergies 01/22/2015 Ears/Nose/Throat/Neck No sore throat 01/22/2015 Ears/Nose/Throat/Neck No postnasal drip 01/22/2015 Ears/Nose/Throat/Neck No sinus congestion 01/22/2015 Cardiovascular No chest pain/pressure 01/22/2015 Cardiovascular No dyspnea 01/22/2015 Cardiovascular No edema 01/22/2015 Cardiovascular No exercise intolerance 01/22/2015 Cardiovascular No fatigue 01/22/2015 Cardiovascular No near-syncope/dizziness 01/22/2015 Respiratory No chest tightness 01/22/2015 Respiratory No cigarette smoking 01/22/2015 Respiratory No cough 09/2014 Respiratory No dyspnea 0 01/22/2015 Respiratory No pedal edema 01/22/2015 Respiratory No snoring 0 01/22/2015 Respiratory No wheezing 01/22/2015 Neurologic No dizziness 01/22/2015 Neurologic No headache 0 01/22/2015 Neurologic No neck pain 01/22/2015 Neurologic No syncope Dermatologic No rash 09/2014 Dermatologic No scar 09/2014 Musculoskeletal No stiffness 01/22/2015 Musculoskeletal No swelling 01/22/2015 Musculoskeletal No muscle weakness 01/22/2015 Musculoskeletal No myalgias 01/22/2015 Genitourinary/Nephrology No dysuria 01/22/2015 Genitourinary/Nephrology No nocturia 01/22/2015 Genitourinary/Nephrology No urinary incontinence 01/22/2015 Constitutional No recent illness 01/22/2015 Constitutional No fatigue 01/22/2015 Constitutional No fever 01/22/2015 Physical Exam Exam Name System Name It em Name Status Result Effective Dates Notes Full Exam - ENT Constitutional general appearance Overall: well nourished 09/02/2018 None Full Exam - ENT Constitutional general appearance Overall: well developed 09/02/2018 None Full Exam - ENT Constitutional general appearance Overall: in no acute distress 09/02/2018 None Full Exam - ENT Ears/Nose/Throat otoscopic exam Overall: external auditory canals normal 09/02/2018 None Full Exam - ENT Ears/Nose/Throat otoscopic exam Left tympanic membrane: air-fluid le ann 09/02/2018 None Full Exam - ENT Ears/Nose/Throat otoscopic exam Right tympanic membrane: air-fluid level 09/02/2018 None Full Exam - ENT Ears/Nose/Throat nasal mucosa, septum, turbinates Drainage: clear 09/02/2018 None Full Exam - ENT Ears/Nose/Throat nasal mucosa, septum, turbinates Drainage: yellow 09/02/2018 None Full Exam - ENT Ears/Nose/Throat lips/teeth/gingiva Overall: benign lips 09/02/2018 None Full Exam - ENT Ears/Nose/Throat oropharynx Posterior Pharynx: clear post nasal drainage 09/02/2018 None Full Exam - ENT Face and Head palpation Left maxillary sinus: tender 09/02/2018 None Full Exam - ENT Face and Head palpation Right maxillary sinus: tender 09/02/2018 None Full Exam - ENT Respiratory inspection Overall: no retractions 09/02/2018 None Full Exam - ENT Respiratory inspection Overall: normal rate None Full Exam - ENT Respiratory auscultation Overall: breath sounds clear bilater ally 09/02/2018 None Full Exam - ENT Cardiovascular auscultation of heart Overall: regular rate 09/02/2018 None Full Exam - ENT Cardiovascular auscultation of heart Overall: normal heart sounds 09/02/2018 None Full Exam - ENT Lymphatic palpation of lymph nodes Overall: anterior cervical chain benign 09/02/2018 None Full Exam - ENT Lymphatic palpation of lymph nodes Overall: posterior cervical chain benign 09/02/2018 None Full Exam - ENT Neurologic mood and affect Overall: normal mood 09/02/2018 None Full Exam - ENT Neurologic mood and affect Overall: normal affect 09/02/2018 None Full Exam - ENT Neurologic orientation Overall: oriented to person, place a nd time 09/02/2018 None Full Exam - General 1994 Constitutional general appearance Development: appears stated age 1004/14/2018 None Full Exam - General 1994 Constitutional general appearance Overall: well developed 04/14/2018 None Full Exam - General 1994 Constitutional general appearance Overall: in no acute distress 04/14/2018 None Full Exam - General 1994 Constitutional general appearance Overall: well nourished 04/14/2018 None Full Exam - General 1994 Constitutional general appearance Hygiene/Attention to Grooming: good hygiene 04/14/2018 None Full Exam - General 1994 Eyes conjunctiva/eyelids Overall: conjunctiva clear 04/14/2018 None Full Exam - General 1994 Eyes conjunctiva/eyelids Overall: cornea clear 04/14/2018 None Full Exam - General 1994 Eyes conjunctiva/eyelids Overall: eyelids normal 04/14/2018 None Full Exam - General 1994 Eyes pupils and irises Overall: pupils equal, round, reactive to light and accomodation 04/14/2018 None Full Exam - General 1994 Ears/Nose/Throat otoscopic exam Overall: external auditory canals clear 04/14/2018 None Full Exam - General 1994 Ears/Nose/Throat otoscopic exam Overall: tympanic membranes clear 04/14/2018 None Full Exam - General 1994 Ears/Nose/Throat lips/teeth/gingiva Overall: benign lips 04/14/2018 None Full Exam - General 1994 Ears/Nose/Throat lips/teeth/gingiva Overall: normal dentition 04/14/2018 None Full Exam - General 1994 Ears/Nose/Throat oral cavity/pharynx/larynx Overall: oral mucosa clear 04/14/2018 None Full Exam - General 1994 Ears/Nose/Throat oral cavity/pharynx/larynx Overall: oropharyngeal mucosa clear 04/14/2018 None Full Exam - General 1994 Ears/Nose/Throat oral cavity/pharynx/larynx Overall: hypopharynx benign 04/14/2018 None Full Exam - General 1994 Ears/Nose/Throat oral cavity/pharynx/larynx Overall: no masses 04/14/2018 None Full Exam - General 1994 Respiratory auscultation Overall: breath sounds clear bilaterally 04/14/2018 None Full Exam - General 1994 Respiratory respiratory effort/rhythm Overall: no retractions 04/14/2018 None Full Exam - General 1994 Respiratory respiratory effort/rhythm Overall: normal rate 04/14/2018 None Full Exam - General 1994 Cardiovascular auscultation of heart Overall: regular rate 04/14/2018 None Full Exam - General 1994 Cardiovascular auscultation of heart Overall: normal heart sounds 04/14/2018 None Full Exam - General 1994 Abdomen abdominal exam Overall: no tenderness 04/14/2018 None Full Exam - General 1994 Abdomen abdominal exam Overall: normal bowel sounds 04/14/2018 None Full Exam - General 1994 Abdomen abdominal exam Contour: protuberant 04/14/2018 large hernia Full Exam - General 1994 Musculoskeletal head and neck Overall: head atraumatic 04/14/2018 None Full Exam - General 1994 Integument inspection of skin Overall: few scattered moles, no gross abnormalities 04/14/2018 None Full Exam - General 1994 Neurologic deep tendon reflexes Overall: deep tendon reflexes intact 04/14/2018 None Full Exam - General 1994 Neurologic cranial nerves Overall: crainial nerves 2 - 12 grossly intact 04/14/2018 None Full Exam - General 1994 Psychiatric orientation/consciousness Overall: oriented to person, place and time 04/14/2018 None Full Exam - General 1994 Psychiatric mood and affect Overall: normal mood and affect 04/14/2018 None Full Exam - General 1994 Psychiatric appearance Overall: well-groomed, good eye contact 04/14/2018 None Full Exam - General 1994 Cardiovascular extremities Overall: no clubbing 04/14/2018 None Full Exam - General 1994 Constitutional general appearance Development: appears stated age 0701/18/2018 None Full Exam - General 1994 Constitutional general appearance Overall: well developed 01/18/2018 None Full Exam - General 1994 Constitutional general appearance Overall: in no acute distress 01/18/2018 None Full Exam - General 1994 Constitutional general appearance Overall: well nourished 01/18/2018 None Full Exam - General 1994 Constitutional general appearance Hygiene/Attention to Grooming: good hygiene 01/18/2018 None Full Exam - General 1994 Eyes conjunctiva/eyelids Overall: conjunctiva clear 01/18/2018 None Full Exam - General 1994 Eyes conjunctiva/eyelids Overall: cornea clear 01/18/2018 None Full Exam - General 1994 Eyes conjunctiva/eyelids Overall: eyelids normal 01/18/2018 None Full Exam - General 1994 Eyes pupils and irises Overall: pupils equal, round, reactive to light and accomodation 01/18/2018 None Full Exam - General 1994 Ears/Nose/Throat otoscopic exam Overall: external auditory canals clear 01/18/2018 None Full Exam - General 1994 Ears/Nose/Throat otoscopic exam Overall: tympanic membranes clear 01/18/2018 None Full Exam - General 1994 Ears/Nose/Throat lips/teeth/gingiva Overall: benign lips 01/18/2018 None Full Exam - General 1994 Ears/Nose/Throat lips/teeth/gingiva Overall: normal dentition 01/18/2018 None Full Exam - General 1994 Ears/Nose/Throat oral cavity/pharynx/larynx Overall: oral mucosa clear 01/18/2018 None Full Exam - General 1994 Ears/Nose/Throat oral cavity/pharynx/larynx Overall: oropharyngeal mucosa clear 01/18/2018 None Full Exam - General 1994 Ears/Nose/Throat oral cavity/pharynx/larynx Overall: hypopharynx benign 01/18/2018 None Full Exam - General 1994 Ears/Nose/Throat oral cavity/pharynx/larynx Overall: no masses 01/18/2018 None Full Exam - General 1994 Respiratory auscultation Overall: breath sounds clear bilaterally 01/18/2018 None Full Exam - General 1994 Respiratory respiratory effort/rhythm Overall: no retractions 01/18/2018 None Full Exam - General 1994 Respiratory respiratory effort/rhythm Overall: normal rate 01/18/2018 None Full Exam - General 1994 Cardiovascular extremities Overall: no clubbing 01/18/2018 None Full Exam - General 1994 Cardiovascular extremities Edema present: pitting 01/18/2018 None Full Exam - General 1994 Cardiovascular extremities Edema present: severity 1+ - 4+: 2 01/18/2018 None Full Exam - General 1994 Cardiovascular extremities Edema present: to leg 01/18/2018 None Full Exam - General 1994 Cardiovascular auscultation of heart Overall: regular rate 01/18/2018 None Full Exam - General 1994 Cardiovascular auscultation of heart Overall: normal heart sounds 01/18/2018 None Full Exam - General 1994 Abdomen abdominal exam Overall: normal bowel sounds 01/18/2018 None Full Exam - General 1994 Abdomen abdominal exam Contour: asymmetric 01/18/2018 with bulge at right lower abdomen with h ernia - tender around entire edge of hernia, large hernia not reducible Full Exam - General 1994 Musculoskeletal head and neck Overall: head atraumatic 01/18/2018 None Full Exam - General 1994 Integument inspection of skin Overall: few scattered moles, no gross abnormalities 01/18/2018 None Full Exam - General 1994 Neurologic deep tendon reflexes Overall: deep tendon reflexes intact 01/18/2018 None Full Exam - General 1994 Neurologic cranial nerves Overall: crainial nerves 2 - 12 grossly intact 01/18/2018 None Full Exam - General 1994 Psychiatric orientation/consciousness Overall: oriented to person, place and time 01/18/2018 None Full Exam - General 1994 Psychiatric mood and affect Overall: normal mood and affect 01/18/2018 None Full Exam - General 1994 Psychiatric appearance Overall: well-groomed, good eye contact 01/18/2018 None Full Exam - General 1994 Constitutional general appearance Development: appears stated age 0701/04/2018 None Full Exam - General 1994 Constitutional general appearance Overall: well developed 01/04/2018 None Full Exam - General 1994 Constitutional general appearance Overall: in no acute distress 01/04/2018 None Full Exam - General 1994 Constitutional general appearance Overall: well nourished 01/04/2018 None Full Exam - General 1994 Constitutional general appearance Hygiene/Attention to Grooming: good hygiene 01/04/2018 None Full Exam - General 1994 Eyes conjunctiva/eyelids Overall: conjunctiva clear 01/04/2018 None Full Exam - General 1994 Eyes conjunctiva/eyelids Overall: cornea clear 01/04/2018 None Full Exam - General 1994 Eyes conjunctiva/eyelids Overall: eyelids normal 01/04/2018 None Full Exam - General 1994 Eyes pupils and irises Overall: pupils equal, round, reactive to light and accomodation 01/04/2018 None Full Exam - General 1994 Ears/Nose/Throat otoscopic exam Overall: external auditory canals clear 01/04/2018 None Full Exam - General 1994 Ears/Nose/Throat otoscopic exam Overall: tympanic membranes clear 01/04/2018 None Full Exam - General 1994 Ears/Nose/Throat lips/teeth/gingiva Overall: benign lips 01/04/2018 None Full Exam - General 1994 Ears/Nose/Throat lips/teeth/gingiva Overall: normal dentition 01/04/2018 None Full Exam - General 1994 Ears/Nose/Throat oral cavity/pharynx/larynx Overall: oral mucosa clear 01/04/2018 None Full Exam - General 1994 Ears/Nose/Throat oral cavity/pharynx/larynx Overall: oropharyngeal mucosa clear 01/04/2018 None Full Exam - General 1994 Ears/Nose/Throat oral cavity/pharynx/larynx Overall: hypopharynx benign 01/04/2018 None Full Exam - General 1994 Ears/Nose/Throat oral cavity/pharynx/larynx Overall: no masses 01/04/2018 None Full Exam - General 1994 Respiratory auscultation Overall: breath sounds clear bilaterally 01/04/2018 None Full Exam - General 1994 Respiratory respiratory effort/rhythm Overall: no retractions 01/04/2018 None Full Exam - General 1994 Respiratory respiratory effort/rhythm Overall: normal rate 01/04/2018 None Full Exam - General 1994 Cardiovascular extremities Overall: no clubbing 01/04/2018 None Full Exam - General 1994 Cardiovascular extremities Edema present: pitting 01/04/2018 None Full Exam - General 1994 Cardiovascular extremities Edema present: severity 1+ - 4+: 2 01/04/2018 None Full Exam - General 1994 Cardiovascular extremities Edema present: to leg 01/04/2018 None Full Exam - General 1994 Cardiovascular auscultation of heart Overall: regular rate 01/04/2018 None Full Exam - General 1994 Cardiovascular auscultation of heart Overall: normal heart sounds 01/04/2018 None Full Exam - General 1994 Abdomen abdominal exam Overall: normal bowel sounds 01/04/2018 None Full Exam - General 1994 Abdomen abdominal exam Contour: asymmetric 01/04/2018 with bulge at right lower abdomen with h ernia - tender around entire edge of hernia, large hernia not reducible Full Exam - General 1994 Musculoskeletal head and neck Overall: head atraumatic 01/04/2018 None Full Exam - General 1994 Integument inspection of skin Overall: few scattered moles, no gross abnormalities 01/04/2018 None Full Exam - General 1994 Neurologic deep tendon reflexes Overall: deep tendon reflexes intact 01/04/2018 None Full Exam - General 1994 Neurologic cranial nerves Overall: crainial nerves 2 - 12 grossly intact 01/04/2018 None Full Exam - General 1994 Psychiatric orientation/consciousness Overall: oriented to person, place and time 01/04/2018 None Full Exam - General 1994 Psychiatric mood and affect Overall: normal mood and affect 01/04/2018 None Full Exam - General 1994 Psychiatric appearance Overall: well-groomed, good eye contact 01/04/2018 None Full Exam - General 1994 Constitutional general appearance Development: appears stated age 0409/23/2017 None Full Exam - General 1994 Constitutional general appearance Overall: well developed 09/23/2017 None Full Exam - General 1994 Constitutional general appearance Overall: in no acute distress 09/23/2017 None Full Exam - General 1994 Constitutional general appearance Overall: well nourished 09/23/2017 None Full Exam - General 1994 Constitutional general appearance Hygiene/Attention to Grooming: good hygiene 09/23/2017 None Full Exam - General 1994 Eyes conjunctiva/eyelids Overall: conjunctiva clear 09/23/2017 None Full Exam - General 1994 Eyes conjunctiva/eyelids Overall: cornea clear 09/23/2017 None Full Exam - General 1994 Eyes conjunctiva/eyelids Overall: eyelids normal 09/23/2017 None Full Exam - General 1994 Eyes pupils and irises Overall: pupils equal, round, reactive to light and accomodation 09/23/2017 None Full Exam - General 1994 Ears/Nose/Throat otoscopic exam Overall: external auditory canals clear 09/23/2017 None Full Exam - General 1994 Ears/Nose/Throat otoscopic exam Overall: tympanic membranes clear 09/23/2017 None Full Exam - General 1994 Ears/Nose/Throat lips/teeth/gingiva Overall: benign lips 09/23/2017 None Full Exam - General 1994 Ears/Nose/Throat lips/teeth/gingiva Overall: normal dentition 09/23/2017 None Full Exam - General 1994 Ears/Nose/Throat oral cavity/pharynx/larynx Overall: oral mucosa clear 09/23/2017 None Full Exam - General 1994 Ears/Nose/Throat oral cavity/pharynx/larynx Overall: oropharyngeal mucosa clear 09/23/2017 None Full Exam - General 1994 Ears/Nose/Throat oral cavity/pharynx/larynx Overall: hypopharynx benign 09/23/2017 None Full Exam - General 1994 Ears/Nose/Throat oral cavity/pharynx/larynx Overall: no masses 09/23/2017 None Full Exam - General 1994 Respiratory auscultation Overall: breath sounds clear bilaterally 09/23/2017 None Full Exam - General 1994 Respiratory respiratory effort/rhythm Overall: no retractions 09/23/2017 None Full Exam - General 1994 Respiratory respiratory effort/rhythm Overall: normal rate 09/23/2017 None Full Exam - General 1994 Cardiovascular extremities Overall: no clubbing 09/23/2017 None Full Exam - General 1994 Cardiovascular extremities Edema present: pitting 09/23/2017 None Full Exam - General 1994 Cardiovascular extremities Edema present: severity 1+ - 4+: 2 09/23/2017 None Full Exam - General 1994 Cardiovascular extremities Edema present: to leg 09/23/2017 None Full Exam - General 1994 Cardiovascular auscultation of heart Overall: regular rate 09/23/2017 None Full Exam - General 1994 Cardiovascular auscultation of heart Overall: normal heart sounds 09/23/2017 None Full Exam - General 1994 Abdomen abdominal exam Overall: normal bowel sounds 09/23/2017 None Full Exam - General 1994 Musculoskeletal head and neck Overall: head atraumatic 09/23/2017 None Full Exam - General 1994 Integument inspection of skin Overall: few scattered moles, no gross abnormalities 09/23/2017 None Full Exam - General 1994 Neurologic deep tendon reflexes Overall: deep tendon reflexes intact 09/23/2017 None Full Exam - General 1994 Neurologic cranial nerves Overall: crainial nerves 2 - 12 grossly intact 09/23/2017 None Full Exam - General 1994 Psychiatric orientation/consciousness Overall: oriented to person, place and time 09/23/2017 None Full Exam - General 1994 Psychiatric mood and affect Overall: normal mood and affect 09/23/2017 None Full Exam - General 1994 Psychiatric appearance Overall: well-groomed, good eye contact 09/23/2017 None Full Exam - General 1994 Abdomen abdominal exam Contour: asymmetric 09/23/2017 with bulge at right lower abdomen with h ernia - tender around entire edge of hernia, large hernia not reducible Full Exam - General 1994 Constitutional general appearance Development: appears stated age 1205/27/2017 None Full Exam - General 1994 Constitutional general appearance Overall: well developed 05/27/2017 None Full Exam - General 1994 Constitutional general appearance Overall: in no acute distress 05/27/2017 None Full Exam - General 1994 Constitutional general appearance Overall: well nourished 05/27/2017 None Full Exam - General 1994 Constitutional general appearance Hygiene/Attention to Grooming: good hygiene 05/27/2017 None Full Exam - General 1994 Eyes conjunctiva/eyelids Overall: conjunctiva clear 05/27/2017 None Full Exam - General 1994 Eyes conjunctiva/eyelids Overall: cornea clear 05/27/2017 None Full Exam - General 1994 Eyes conjunctiva/eyelids Overall: eyelids normal 05/27/2017 None Full Exam - General 1994 Eyes pupils and irises Overall: pupils equal, round, reactive to light and accomodation 05/27/2017 None Full Exam - General 1994 Ears/Nose/Throat otoscopic exam Overall: external auditory canals clear 05/27/2017 None Full Exam - General 1994 Ears/Nose/Throat otoscopic exam Overall: tympanic membranes clear 05/27/2017 None Full Exam - General 1994 Ears/Nose/Throat lips/teeth/gingiva Overall: benign lips 05/27/2017 None Full Exam - General 1994 Ears/Nose/Throat lips/teeth/gingiva Overall: normal dentition 05/27/2017 None Full Exam - General 1994 Ears/Nose/Throat oral cavity/pharynx/larynx Overall: oral mucosa clear 05/27/2017 None Full Exam - General 1994 Ears/Nose/Throat oral cavity/pharynx/larynx Overall: oropharyngeal mucosa clear 05/27/2017 None Full Exam - General 1994 Ears/Nose/Throat oral cavity/pharynx/larynx Overall: hypopharynx benign 05/27/2017 None Full Exam - General 1994 Ears/Nose/Throat oral cavity/pharynx/larynx Overall: no masses 05/27/2017 None Full Exam - General 1994 Respiratory auscultation Overall: breath sounds clear bilaterally 05/27/2017 None Full Exam - General 1994 Respiratory respiratory effort/rhythm Overall: no retractions 05/27/2017 None Full Exam - General 1994 Respiratory respiratory effort/rhythm Overall: normal rate 05/27/2017 None Full Exam - General 1994 Cardiovascular extremities Overall: no clubbing 05/27/2017 None Full Exam - General 1994 Cardiovascular extremities Edema present: pitting 05/27/2017 None Full Exam - General 1994 Cardiovascular extremities Edema present: severity 1+ - 4+: 2 05/27/2017 None Full Exam - General 1994 Cardiovascular extremities Edema present: to leg 05/27/2017 None Full Exam - General 1994 Cardiovascular auscultation of heart Overall: regular rate 05/27/2017 None Full Exam - General 1994 Cardiovascular auscultation of heart Overall: normal heart sounds 05/27/2017 None Full Exam - General 1994 Abdomen abdominal exam Overall: no tenderness 05/27/2017 None Full Exam - General 1994 Abdomen abdominal exam Overall: normal bowel sounds 05/27/2017 None Full Exam - General 1994 Musculoskeletal head and neck Overall: head atraumatic 05/27/2017 None Full Exam - General 1994 Integument inspection of skin Overall: few scattered moles, no gross abnormalities 05/27/2017 None Full Exam - General 1994 Neurologic deep tendon reflexes Overall: deep tendon reflexes intact 05/27/2017 None Full Exam - General 1994 Neurologic cranial nerves Overall: crainial nerves 2 - 12 grossly intact 05/27/2017 None Full Exam - General 1994 Psychiatric orientation/consciousness Overall: oriented to person, place and time 05/27/2017 None Full Exam - General 1994 Psychiatric mood and affect Overall: normal mood and affect 05/27/2017 None Full Exam - General 1994 Psychiatric appearance Overall: well-groomed, good eye contact 05/27/2017 None Full Exam - General 1994 Constitutional general appearance Overall: well developed 02/24/2017 None Full Exam - General 1994 Constitutional general appearance Overall: in no acute distress 02/24/2017 None Full Exam - General 1994 Constitutional general appearance Overall: well nourished 02/24/2017 None Full Exam - General 1994 Constitutional general appearance Hygiene/Attention to Grooming: good hygiene 02/24/2017 None Full Exam - General 1994 Eyes conjunctiva/eyelids Overall: conjunctiva clear 02/24/2017 None Full Exam - General 1994 Eyes conjunctiva/eyelids Overall: eyelids normal 02/24/2017 None Full Exam - General 1994 Eyes pupils and irises Overall: pupils equal, round, reactive to light and accomodation 02/24/2017 None Full Exam - General 1994 Ears/Nose/Throat otoscopic exam Overall: external auditory canals clear 02/24/2017 None Full Exam - General 1994 Ears/Nose/Throat otoscopic exam Overall: tympanic membranes clear 02/24/2017 None Full Exam - General 1994 Ears/Nose/Throat lips/teeth/gingiva Overall: benign lips 02/24/2017 None Full Exam - General 1994 Ears/Nose/Throat oral cavity/pharynx/larynx Overall: oral mucosa clear 02/24/2017 None Full Exam - General 1994 Ears/Nose/Throat oral cavity/pharynx/larynx Overall: oropharyngeal mucosa clear 02/24/2017 None Full Exam - General 1994 Respiratory auscultation Overall: breath sounds clear bilaterally 02/24/2017 None Full Exam - General 1994 Respiratory respiratory effort/rhythm Overall: no retractions 02/24/2017 None Full Exam - General 1994 Respiratory respiratory effort/rhythm Overall: normal rate 02/24/2017 None Full Exam - General 1994 Cardiovascular extremities Overall: no clubbing 02/24/2017 None Full Exam - General 1994 Cardiovascular auscultation of heart Overall: regular rate 02/24/2017 None Full Exam - General 1994 Cardiovascular auscultation of heart Overall: normal heart sounds 02/24/2017 None Full Exam - General 1994 Abdomen abdominal exam Overall: normal bowel sounds 02/24/2017 None Full Exam - General 1994 Musculoskeletal head and neck Overall: head atraumatic 02/24/2017 None Full Exam - General 1994 Neurologic cranial nerves Overall: crainial nerves 2 - 12 grossly intact 02/24/2017 None Full Exam - General 1994 Psychiatric orientation/consciousness Overall: oriented to person, place and time 02/24/2017 None Full Exam - General 1994 Psychiatric mood and affect Overall: normal mood and affect 02/24/2017 None Full Exam - General 1994 Psychiatric appearance Overall: well-groomed, good eye contact 02/24/2017 None Full Exam - General 1994 Integument inspection of skin Overall: no rash, lesions 02/24/2017 None Full Exam - General 1994 Constitutional general appearance Development: appears stated age 0511/02/2016 None Full Exam - General 1994 Constitutional general appearance Overall: well developed 11/02/2016 None Full Exam - General 1994 Constitutional general appearance Overall: in no acute distress 11/02/2016 None Full Exam - General 1994 Constitutional general appearance Overall: well nourished 11/02/2016 None Full Exam - General 1994 Constitutional general appearance Hygiene/Attention to Grooming: good hygiene 11/02/2016 None Full Exam - General 1994 Eyes conjunctiva/eyelids Overall: conjunctiva clear 11/02/2016 None Full Exam - General 1994 Eyes conjunctiva/eyelids Overall: cornea clear 11/02/2016 None Full Exam - General 1994 Eyes conjunctiva/eyelids Overall: eyelids normal 11/02/2016 None Full Exam - General 1994 Eyes pupils and irises Overall: pupils equal, round, reactive to light and accomodation 11/02/2016 None Full Exam - General 1994 Ears/Nose/Throat otoscopic exam Overall: external auditory canals clear 11/02/2016 None Full Exam - General 1994 Ears/Nose/Throat otoscopic exam Overall: tympanic membranes clear 11/02/2016 None Full Exam - General 1994 Ears/Nose/Throat lips/teeth/gingiva Overall: benign lips 11/02/2016 None Full Exam - General 1994 Ears/Nose/Throat lips/teeth/gingiva Overall: normal dentition 11/02/2016 None Full Exam - General 1994 Ears/Nose/Throat oral cavity/pharynx/larynx Overall: oral mucosa clear 11/02/2016 None Full Exam - General 1994 Ears/Nose/Throat oral cavity/pharynx/larynx Overall: oropharyngeal mucosa clear 11/02/2016 None Full Exam - General 1994 Ears/Nose/Throat oral cavity/pharynx/larynx Overall: hypopharynx benign 11/02/2016 None Full Exam - General 1994 Ears/Nose/Throat oral cavity/pharynx/larynx Overall: no masses 11/02/2016 None Full Exam - General 1994 Respiratory auscultation Overall: breath sounds clear bilaterally 11/02/2016 None Full Exam - General 1994 Respiratory respiratory effort/rhythm Overall: no retractions 11/02/2016 None Full Exam - General 1994 Respiratory respiratory effort/rhythm Overall: normal rate 11/02/2016 None Full Exam - General 1994 Cardiovascular extremities Overall: no clubbing 11/02/2016 None Full Exam - General 1994 Cardiovascular extremities Edema present: pitting 11/02/2016 None Full Exam - General 1994 Cardiovascular extremities Edema present: severity 1+ - 4+: 2 11/02/2016 None Full Exam - General 1994 Cardiovascular extremities Edema present: to leg 11/02/2016 None Full Exam - General 1994 Cardiovascular auscultation of heart Overall: regular rate 11/02/2016 None Full Exam - General 1994 Cardiovascular auscultation of heart Overall: normal heart sounds 11/02/2016 None Full Exam - General 1994 Abdomen abdominal exam Overall: no tenderness 11/02/2016 None Full Exam - General 1994 Abdomen abdominal exam Overall: normal bowel sounds 11/02/2016 None Full Exam - General 1994 Abdomen abdominal exam Contour: protuberant 11/02/2016 left sided hernia - large hernia - mildl y TTP Full Exam - General 1994 Musculoskeletal head and neck Overall: head atraumatic 11/02/2016 None Full Exam - General 1994 Integument inspection of skin Overall: few scattered moles, no gross abnormalities 11/02/2016 None Full Exam - General 1994 Neurologic deep tendon reflexes Overall: deep tendon reflexes intact 11/02/2016 None Full Exam - General 1994 Neurologic cranial nerves Overall: crainial nerves 2 - 12 grossly intact 11/02/2016 None Full Exam - General 1994 Psychiatric orientation/consciousness Overall: oriented to person, place and time 11/02/2016 None Full Exam - General 1994 Psychiatric mood and affect Overall: normal mood and affect 11/02/2016 None Full Exam - General 1994 Psychiatric appearance Overall: well-groomed, good eye contact 11/02/2016 None Full Exam - General 1994 Musculoskeletal spine, ribs and pelvis Palpation: tender at greater trochanter 11/02/2016 and deep into joint - pain with manipulation of hip with external rotation. Full Exam - General 1994 Constitutional general appearance Overall: well developed 09/30/2016 None Full Exam - General 1994 Constitutional general appearance Overall: in no acute distress 09/30/2016 None Full Exam - General 1994 Constitutional general appearance Overall: well nourished 09/30/2016 None Full Exam - General 1994 Eyes conjunctiva/eyelids Overall: conjunctiva clear 09/30/2016 None Full Exam - General 1994 Eyes conjunctiva/eyelids Overall: eyelids normal 09/30/2016 None Full Exam - General 1994 Eyes pupils and irises Overall: pupils equal, round, reactive to light and accomodation 09/30/2016 None Full Exam - General 1994 Ears/Nose/Throat lips/teeth/gingiva Overall: benign lips 09/30/2016 None Full Exam - General 1994 Ears/Nose/Throat oral cavity/pharynx/larynx Overall: oral mucosa clear 09/30/2016 None Full Exam - General 1994 Respiratory auscultation Overall: breath sounds clear bilaterally 09/30/2016 None Full Exam - General 1994 Respiratory respiratory effort/rhythm Overall: no retractions 09/30/2016 None Full Exam - General 1994 Respiratory respiratory effort/rhythm Overall: normal rate 09/30/2016 None Full Exam - General 1994 Cardiovascular extremities Edema present: pitting 09/30/2016 None Full Exam - General 1994 Cardiovascular extremities Edema present: to leg 09/30/2016 None Full Exam - General 1994 Cardiovascular auscultation of heart Overall: regular rate 09/30/2016 None Full Exam - General 1994 Cardiovascular auscultation of heart Overall: normal heart sounds 09/30/2016 None Full Exam - General 1994 Musculoskeletal head and neck Overall: head atraumatic 09/30/2016 None Full Exam - General 1994 Neurologic cranial nerves Overall: crainial nerves 2 - 12 grossly intact 09/30/2016 None Full Exam - General 1994 Psychiatric orientation/consciousness Overall: oriented to person, place and time 09/30/2016 None Full Exam - General 1994 Psychiatric mood and affect Overall: normal mood and affect 09/30/2016 None Full Exam - General 1994 Psychiatric appearance Overall: well-groomed, good eye contact 09/30/2016 None Full Exam - General 1994 Constitutional general appearance Development: appears stated age 0409/30/2016 None Full Exam - General 1994 Constitutional general appearance Hygiene/Attention to Grooming: good hygiene 09/30/2016 None Full Exam - General 1994 Eyes conjunctiva/eyelids Overall: cornea clear 09/30/2016 None Full Exam - General 1994 Ears/Nose/Throat otoscopic exam Overall: external auditory canals clear 09/30/2016 None Full Exam - General 1994 Ears/Nose/Throat otoscopic exam Overall: tympanic membranes clear 09/30/2016 None Full Exam - General 1994 Ears/Nose/Throat lips/teeth/gingiva Overall: normal dentition 09/30/2016 None Full Exam - General 1994 Ears/Nose/Throat oral cavity/pharynx/larynx Overall: oropharyngeal mucosa clear 09/30/2016 None Full Exam - General 1994 Ears/Nose/Throat oral cavity/pharynx/larynx Overall: hypopharynx benign 09/30/2016 None Full Exam - General 1994 Ears/Nose/Throat oral cavity/pharynx/larynx Overall: no masses 09/30/2016 None Full Exam - General 1994 Cardiovascular extremities Overall: no clubbing 09/30/2016 None Full Exam - General 1994 Abdomen abdominal exam Overall: no tenderness 09/30/2016 None Full Exam - General 1994 Abdomen abdominal exam Overall: normal bowel sounds 09/30/2016 None Full Exam - General 1994 Abdomen abdominal exam Contour: protuberant 09/30/2016 left sided hernia - large hernia - mildl y TTP Full Exam - General 1994 Integument inspection of skin Overall: few scattered moles, no gross abnormalities 09/30/2016 None Full Exam - General 1994 Neurologic deep tendon reflexes Overall: deep tendon reflexes intact 09/30/2016 None Full Exam - General 1994 Cardiovascular extremities Edema present: severity 1+ - 4+: 2 09/30/2016 None Full Exam - General 1994 Constitutional general appearance Overall: well developed 09/10/2016 None Full Exam - General 1994 Constitutional general appearance Overall: in no acute distress 09/10/2016 None Full Exam - General 1994 Constitutional general appearance Overall: well nourished 09/10/2016 None Full Exam - General 1994 Eyes conjunctiva/eyelids Overall: conjunctiva clear 09/10/2016 None Full Exam - General 1994 Eyes conjunctiva/eyelids Overall: eyelids normal 09/10/2016 None Full Exam - General 1994 Eyes pupils and irises Overall: pupils equal, round, reactive to light and accomodation 09/10/2016 None Full Exam - General 1994 Ears/Nose/Throat lips/teeth/gingiva Overall: benign lips 09/10/2016 None Full Exam - General 1994 Ears/Nose/Throat oral cavity/pharynx/larynx Overall: oral mucosa clear 09/10/2016 None Full Exam - General 1994 Respiratory auscultation Overall: breath sounds clear bilaterally 09/10/2016 None Full Exam - General 1994 Respiratory respiratory effort/rhythm Overall: no retractions 09/10/2016 None Full Exam - General 1994 Respiratory respiratory effort/rhythm Overall: normal rate 09/10/2016 None Full Exam - General 1994 Cardiovascular extremities Edema present: pitting 09/10/2016 None Full Exam - General 1994 Cardiovascular extremities Edema present: severity 1+ - 4+: 1-2+ 09/10/2016 None Full Exam - General 1994 Cardiovascular extremities Edema present: to leg 09/10/2016 None Full Exam - General 1994 Cardiovascular auscultation of heart Overall: regular rate 09/10/2016 None Full Exam - General 1994 Cardiovascular auscultation of heart Overall: normal heart sounds 09/10/2016 None Full Exam - General 1994 Musculoskeletal head and neck Overall: head atraumatic 09/10/2016 None Full Exam - General 1994 Neurologic cranial nerves Overall: crainial nerves 2 - 12 grossly intact 09/10/2016 None Full Exam - General 1994 Psychiatric orientation/consciousness Overall: oriented to person, place and time 09/10/2016 None Full Exam - General 1994 Psychiatric mood and affect Overall: normal mood and affect 09/10/2016 None Full Exam - General 1994 Psychiatric appearance Overall: well-groomed, good eye contact 09/10/2016 None Full Exam - General 1994 Constitutional general appearance Overall: in no acute distress 08/20/2016 None Full Exam - General 1994 Constitutional general appearance Overall: well developed 08/20/2016 None Full Exam - General 1995 Constitutional general appearance Overall: well nourished 08/20/2016 None Full Exam - General 1994 Eyes conjunctiva/eyelids Overall: conjunctiva clear 08/20/2016 None Full Exam - General 1994 Eyes conjunctiva/eyelids Overall: eyelids normal 08/20/2016 None Full Exam - General 1994 Eyes pupils and irises Overall: pupils equal, round, reactive to light and accomodation 08/20/2016 None Full Exam - General 1994 Ears/Nose/Throat lips/teeth/gingiva Overall: benign lips 08/20/2016 None Full Exam - General 1994 Ears/Nose/Throat oral cavity/pharynx/larynx Overall: oral mucosa clear 08/20/2016 None Full Exam - General 1994 Respiratory auscultation Overall: breath sounds clear bilaterally 08/20/2016 None Full Exam - General 1994 Respiratory respiratory effort/rhythm Overall: no retractions 08/20/2016 None Full Exam - General 1994 Respiratory respiratory effort/rhythm Overall: normal rate 08/20/2016 None Full Exam - General 1994 Cardiovascular auscultation of heart Overall: regular rate 08/20/2016 None Full Exam - General 1994 Cardiovascular auscultation of heart Overall: normal heart sounds 08/20/2016 None Full Exam - General 1994 Cardiovascular extremities Edema present: pitting 08/20/2016 None Full Exam - General 1994 Cardiovascular extremities Edema present: severity 1+ - 4+: 2+ 08/20/2016 None Full Exam - General 1994 Cardiovascular extremities Edema present: to leg 08/20/2016 None Full Exam - General 1994 Musculoskeletal head and neck Overall: head atraumatic 08/20/2016 None Full Exam - General 1994 Neurologic cranial nerves Overall: crainial nerves 2 - 12 grossly intact 08/20/2016 None Full Exam - General 1994 Psychiatric orientation/consciousness Overall: oriented to person, place and time 08/20/2016 None Full Exam - General 1994 Psychiatric mood and affect Overall: normal mood and affect 08/20/2016 None Full Exam - General 1994 Psychiatric appearance Overall: well-groomed, good eye contact 08/20/2016 None Full Exam - General 1994 Constitutional general appearance Hygiene/Attention to Grooming: good hygiene 06/08/2016 None Full Exam - General 1994 Eyes conjunctiva/eyelids Overall: conjunctiva clear 06/08/2016 None Full Exam - General 1994 Eyes conjunctiva/eyelids Overall: eyelids normal 06/08/2016 None Full Exam - General 1994 Eyes pupils and irises Overall: pupils equal, round, reactive to light and accomodation 06/08/2016 None Full Exam - General 1994 Ears/Nose/Throat lips/teeth/gingiva Overall: benign lips 06/08/2016 None Full Exam - General 1994 Ears/Nose/Throat oral cavity/pharynx/larynx Overall: oral mucosa clear 06/08/2016 None Full Exam - General 1994 Respiratory respiratory effort/rhythm Overall: no retractions 06/08/2016 None Full Exam - General 1994 Respiratory respiratory effort/rhythm Overall: normal rate 06/08/2016 None Full Exam - General 1994 Cardiovascular extremities Overall: no clubbing 06/08/2016 None Full Exam - General 1994 Neurologic cranial nerves Overall: crainial nerves 2 - 12 grossly intact 06/08/2016 None Full Exam - General 1994 Psychiatric orientation/consciousness Overall: oriented to person, place and time 06/08/2016 None Full Exam - General 1994 Psychiatric mood and affect Overall: normal mood and affect 06/08/2016 None Full Exam - General 1994 Constitutional general appearance Overall: well developed 06/08/2016 None Full Exam - General 1994 Constitutional general appearance Overall: in no acute distress 06/08/2016 None Full Exam - General 1994 Constitutional general appearance Overall: well nourished 06/08/2016 None Full Exam - General 1994 Psychiatric appearance Overall: well-groomed, good eye contact 06/08/2016 None Full Exam - General 1994 Eyes conjunctiva/eyelids Overall: conjunctiva clear 04/02/2016 None Full Exam - General 1994 Eyes conjunctiva/eyelids Overall: cornea clear 04/02/2016 None Full Exam - General 1994 Eyes conjunctiva/eyelids Overall: eyelids normal 04/02/2016 None Full Exam - General 1994 Ears/Nose/Throat otoscopic exam Overall: external auditory canals clear 04/02/2016 None Full Exam - General 1994 Ears/Nose/Throat lips/teeth/gingiva Overall: benign lips 04/02/2016 None Full Exam - General 1994 Ears/Nose/Throat lips/teeth/gingiva Overall: normal dentition 04/02/2016 None Full Exam - General 1994 Ears/Nose/Throat oral cavity/pharynx/larynx Overall: oral mucosa clear 04/02/2016 None Full Exam - General 1994 Respiratory auscultation Overall: breath sounds clear bilaterally 04/02/2016 None Full Exam - General 1994 Respiratory respiratory effort/rhythm Overall: no retractions 04/02/2016 None Full Exam - General 1994 Respiratory respiratory effort/rhythm Overall: normal rate 04/02/2016 None Full Exam - General 1994 Cardiovascular extremities Overall: no clubbing 04/02/2016 None Full Exam - General 1994 Cardiovascular auscultation of heart Overall: regular rate 04/02/2016 None Full Exam - General 1994 Cardiovascular auscultation of heart Overall: normal heart sounds 04/02/2016 None Full Exam - General 1994 Neurologic cranial nerves Overall: crainial nerves 2 - 12 grossly intact 04/02/2016 None Full Exam - General 1994 Psychiatric orientation/consciousness Overall: oriented to person, place and time 04/02/2016 None Full Exam - General 1994 Psychiatric mood and affect Overall: normal mood and affect 04/02/2016 None Full Exam - General 1994 Constitutional general appearance Overall: well developed 04/02/2016 None Full Exam - General 1994 Constitutional general appearance Overall: in no acute distress 04/02/2016 None Full Exam - General 1994 Constitutional general appearance Overall: well nourished 04/02/2016 None Full Exam - General 1994 Ears/Nose/Throat otoscopic exam Tympanic membrane: air-fluid level 04/02/2016 None Full Exam - General 1994 Ears/Nose/Throat oral cavity/pharynx/larynx Posterior Pharynx: clear post nasal drainage 04/02/2016 None Full Exam - General 1994 Ears/Nose/Throat oral cavity/pharynx/larynx Oropharynx: erythema 04/02/2016 None Full Exam - General 1994 Constitutional general appearance Development: well developed 01/14/2016 None Full Exam - General 1994 Constitutional general appearance Development: appears stated age 0701/14/2016 None Full Exam - General 1994 Constitutional general appearance Hygiene/Attention to Grooming: good hygiene 01/14/2016 None Full Exam - General 1994 Eyes conjunctiva/eyelids Overall: conjunctiva clear 01/14/2016 None Full Exam - General 1994 Eyes conjunctiva/eyelids Overall: cornea clear 01/14/2016 None Full Exam - General 1994 Eyes conjunctiva/eyelids Overall: eyelids normal 01/14/2016 None Full Exam - General 1994 Eyes pupils and irises Overall: pupils equal, round, reactive to light and accomodation 01/14/2016 None Full Exam - General 1994 Ears/Nose/Throat lips/teeth/gingiva Overall: benign lips 01/14/2016 None Full Exam - General 1994 Ears/Nose/Throat lips/teeth/gingiva Overall: normal dentition 01/14/2016 None Full Exam - General 1994 Respiratory respiratory effort/rhythm Overall: no retractions 01/14/2016 None Full Exam - General 1994 Respiratory respiratory effort/rhythm Overall: normal rate 01/14/2016 None Full Exam - General 1994 Cardiovascular extremities Overall: no clubbing 01/14/2016 None Full Exam - General 1994 Musculoskeletal gait and station Overall: normal gait 01/14/2016 None Full Exam - General 1994 Musculoskeletal gait and station Overall: normal station 01/14/2016 None Full Exam - General 1994 Neurologic cranial nerves Overall: crainial nerves 2 - 12 grossly intact 01/14/2016 None Full Exam - General 1994 Psychiatric orientation/consciousness Overall: oriented to person, place and time 01/14/2016 None Full Exam - General 1994 Psychiatric mood and affect Overall: normal mood and affect 01/14/2016 None Full Exam - General 1994 Abdomen abdominal exam Overall: no tenderness 01/14/[address] Full Exam - General 1994 Abdomen abdominal exam Overall: normal bowel sounds 01/14/2016 None Full Exam - General 1994 Abdomen abdominal exam Upper quadrant: non-tender to palpat ion 01/14/2016 None Full Exam - General 1994 Abdomen abdominal exam Upper quadrant: no guarding 01/14/2016 None Full Exam - General 1994 Abdomen abdominal exam Upper quadrant: no rebound tendernes s 01/14/2016 None Full Exam - General 1994 Abdomen abdominal exam Upper quadrant: no mass lesions 01/14/2016 None Full Exam - General 1994 Abdomen abdominal exam Upper quadrant: soft 01/14/2016 None Full Exam - General 1994 Abdomen abdominal exam Lower quadrant: non-tender to palpat ion 01/14/2016 None Full Exam - General 1994 Abdomen abdominal exam Lower quadrant: no guarding 01/14/2016 None Full Exam - General 1994 Abdomen abdominal exam Lower quadrant: no rebound tendernes s 01/14/2016 None Full Exam - General 1994 Abdomen abdominal exam Lower quadrant: no mass lesions 01/14/2016 None Full Exam - General 1994 Abdomen abdominal exam Lower quadrant: soft 01/14/2016 None Full Exam - General 1994 Psychiatric appearance Overall: well-groomed, good eye contact 01/14/2016 None Full Exam - General 1994 Psychiatric speech Overall: normal quality, no aphasia 01/14/2016 None Full Exam - General 1994 Psychiatric speech Overall: normal quality, quantity, r ate 01/14/2016 None Full Exam - General 1994 Abdomen abdominal exam Contour: asymmetric 01/14/2016 None Full Exam - General 1994 Abdomen abdominal exam Contour: rounded 01/14/2016 None Full Exam - General 1994 Constitutional general appearance Development: well developed 10/02/2015 None Full Exam - General 1994 Constitutional general appearance Development: appears stated age 0410/02/2015 None Full Exam - General 1994 Constitutional general appearance Hygiene/Attention to Grooming: good hygiene 10/02/2015 None Full Exam - General 1994 Eyes conjunctiva/eyelids Overall: conjunctiva clear 10/02/2015 None Full Exam - General 1994 Eyes conjunctiva/eyelids Overall: cornea clear 10/02/2015 None Full Exam - General 1994 Eyes conjunctiva/eyelids Overall: eyelids normal 10/02/2015 None Full Exam - General 1994 Eyes pupils and irises Overall: pupils equal, round, reactive to light and accomodation 10/02/2015 None Full Exam - General 1994 Ears/Nose/Throat lips/teeth/gingiva Overall: benign lips 10/02/2015 None Full Exam - General 1994 Ears/Nose/Throat lips/teeth/gingiva Overall: normal dentition 10/02/2015 None Full Exam - General 1994 Respiratory auscultation Overall: breath sounds clear bilaterally 10/02/2015 None Full Exam - General 1994 Respiratory respiratory effort/rhythm Overall: no retractions 10/02/2015 None Full Exam - General 1994 Respiratory respiratory effort/rhythm Overall: normal rate 10/02/2015 None Full Exam - General 1994 Cardiovascular extremities Overall: no clubbing 10/02/2015 None Full Exam - General 1994 Cardiovascular auscultation of heart Overall: regular rate 10/02/2015 None Full Exam - General 1994 Cardiovascular auscultation of heart Overall: normal heart sounds 10/02/2015 None Full Exam - General 1994 Neurologic cranial nerves Overall: crainial nerves 2 - 12 grossly intact 10/02/2015 None Full Exam - General 1994 Psychiatric orientation/consciousness Overall: oriented to person, place and time 10/02/2015 None Full Exam - General 1994 Psychiatric mood and affect Overall: normal mood and affect 10/02/2015 None Full Exam - General 1994 Musculoskeletal upper extremity Palpation - shoulder: tenderness @ subacromial space 10/02/2015 None Full Exam - General 1994 Musculoskeletal upper extremity Palpation - shoulder: tenderness @ bicipital groove 10/02/2015 None Full Exam - General 1994 Musculoskeletal upper extremity ROM - shoulder: pain with abduction 10/02/2015 None Full Exam - General 1994 Musculoskeletal upper extremity ROM - shoulder: pain with adduction 10/02/2015 None Full Exam - General 1994 Musculoskeletal upper extremity ROM - shoulder: pain with external rotation 10/02/2015 None Full Exam - General 1994 Musculoskeletal upper extremity ROM - shoulder: pain with internal rotation 10/02/2015 None Full Exam - General 1994 Musculoskeletal gait and station Overall: normal gait 10/02/2015 None Full Exam - General 1994 Musculoskeletal gait and station Overall: normal station 10/02/2015 None Full Exam - General 1994 Constitutional general appearance Development: well developed 07/15/2015 None Full Exam - General 1994 Constitutional general appearance Development: appears stated age 0107/15/2015 None Full Exam - General 1994 Constitutional general appearance Hygiene/Attention to Grooming: good hygiene 07/15/2015 None Full Exam - General 1994 Eyes conjunctiva/eyelids Overall: conjunctiva clear 07/15/2015 None Full Exam - General 1994 Eyes conjunctiva/eyelids Overall: cornea clear 07/15/2015 None Full Exam - General 1994 Eyes conjunctiva/eyelids Overall: eyelids normal 07/15/2015 None Full Exam - General 1994 Eyes pupils and irises Overall: pupils equal, round, reactive to light and accomodation 07/15/2015 None Full Exam - General 1994 Ears/Nose/Throat lips/teeth/gingiva Overall: benign lips 07/15/2015 None Full Exam - General 1994 Ears/Nose/Throat lips/teeth/gingiva Overall: normal dentition 07/15/2015 None Full Exam - General 1994 Ears/Nose/Throat oral cavity/pharynx/larynx Overall: oral mucosa clear 07/15/2015 None Full Exam - General 1994 Ears/Nose/Throat oral cavity/pharynx/larynx Overall: oropharyngeal mucosa clear 07/15/2015 None Full Exam - General 1994 Ears/Nose/Throat oral cavity/pharynx/larynx Overall: no masses 07/15/2015 None Full Exam - General 1994 Respiratory auscultation Overall: breath sounds clear bilaterally 07/15/2015 None Full Exam - General 1994 Respiratory respiratory effort/rhythm Overall: no retractions 07/15/2015 None Full Exam - General 1994 Respiratory respiratory effort/rhythm Overall: normal rate 07/15/2015 None Full Exam - General 1994 Cardiovascular extremities Overall: no clubbing 07/15/2015 None Full Exam - General 1994 Cardiovascular auscultation of heart Overall: regular rate 07/15/2015 None Full Exam - General 1994 Cardiovascular auscultation of heart Overall: normal heart sounds 07/15/2015 None Full Exam - General 1994 Abdomen abdominal exam Overall: no tenderness 07/15/2015 None Full Exam - General 1994 Abdomen abdominal exam Overall: normal bowel sounds 07/15/2015 None Full Exam - General 1994 Neurologic cranial nerves Overall: crainial nerves 2 - 12 grossly intact 07/15/2015 None Full Exam - General 1994 Psychiatric orientation/consciousness Overall: oriented to person, place and time 07/15/2015 None Full Exam - General 1994 Psychiatric mood and affect Overall: normal mood and affect 07/15/2015 None Full Exam - General 1994 Ears/Nose/Throat otoscopic exam Overall: external auditory canals clear 07/15/2015 None Full Exam - General 1994 Ears/Nose/Throat otoscopic exam Tympanic membrane: air-fluid level 07/15/2015 None Full Exam - General 1994 Musculoskeletal lower extremity Inspection - lower leg: swelling 07/15/2015 on the left anterior thomas, mild erythema, warmth Full Exam - General 1994 Constitutional general appearance Development: well developed 06/10/2015 None Full Exam - General 1994 Constitutional general appearance Development: appears stated age 1206/10/2015 None Full Exam - General 1994 Constitutional general appearance Hygiene/Attention to Grooming: good hygiene 06/10/2015 None Full Exam - General 1994 Eyes conjunctiva/eyelids Overall: conjunctiva clear 06/10/2015 None Full Exam - General 1994 Eyes conjunctiva/eyelids Overall: cornea clear 06/10/2015 None Full Exam - General 1994 Eyes conjunctiva/eyelids Overall: eyelids normal 06/10/2015 None Full Exam - General 1994 Eyes pupils and irises Overall: pupils equal, round, reactive to light and accomodation 06/10/2015 None Full Exam - General 1994 Ears/Nose/Throat otoscopic exam Overall: external auditory canals clear 06/10/2015 None Full Exam - General 1994 Ears/Nose/Throat otoscopic exam Overall: tympanic membranes clear 06/10/2015 None Full Exam - General 1994 Ears/Nose/Throat lips/teeth/gingiva Overall: benign lips 06/10/2015 None Full Exam - General 1994 Ears/Nose/Throat lips/teeth/gingiva Overall: normal dentition 06/10/2015 None Full Exam - General 1994 Ears/Nose/Throat oral cavity/pharynx/larynx Overall: oral mucosa clear 06/10/2015 None Full Exam - General 1994 Ears/Nose/Throat oral cavity/pharynx/larynx Overall: oropharyngeal mucosa clear 06/10/2015 None Full Exam - General 1994 Ears/Nose/Throat oral cavity/pharynx/larynx Overall: hypopharynx benign 06/10/2015 None Full Exam - General 1994 Ears/Nose/Throat oral cavity/pharynx/larynx Overall: no masses 06/10/2015 None Full Exam - General 1994 Respiratory auscultation Overall: breath sounds clear bilaterally 06/10/2015 None Full Exam - General 1994 Respiratory respiratory effort/rhythm Overall: no retractions 06/10/2015 None Full Exam - General 1994 Respiratory respiratory effort/rhythm Overall: normal rate 06/10/2015 None Full Exam - General 1994 Cardiovascular extremities Overall: no clubbing 06/10/2015 None Full Exam - General 1994 Cardiovascular auscultation of heart Overall: regular rate 06/10/2015 None Full Exam - General 1994 Cardiovascular auscultation of heart Overall: normal heart sounds 06/10/2015 None Full Exam - General 1994 Abdomen abdominal exam Overall: no tenderness 06/10/2015 None Full Exam - General 1994 Abdomen abdominal exam Overall: normal bowel sounds 06/10/2015 None Full Exam - General 1994 Integument inspection of skin Overall: few scattered moles, no gross abnormalities 06/10/2015 None Full Exam - General 1994 Neurologic deep tendon reflexes Overall: deep tendon reflexes intact 06/10/2015 None Full Exam - General 1994 Neurologic cranial nerves Overall: crainial nerves 2 - 12 grossly intact 06/10/2015 None Full Exam - General 1994 Psychiatric orientation/consciousness Overall: oriented to person, place and time 06/10/2015 None Full Exam - General 1994 Psychiatric mood and affect Overall: normal mood and affect 06/10/2015 None Full Exam - General 1994 Constitutional general appearance Development: appears stated age 0801/22/2015 None Full Exam - General 1994 Constitutional general appearance Development: well developed 01/22/2015 None Full Exam - General 1994 Constitutional general appearance Hygiene/Attention to Grooming: good hygiene 01/22/2015 None Full Exam - General 1994 Eyes conjunctiva/eyelids Overall: conjunctiva clear 01/22/2015 None Full Exam - General 1994 Eyes conjunctiva/eyelids Overall: cornea clear 01/22/2015 None Full Exam - General 1994 Eyes conjunctiva/eyelids Overall: eyelids normal 01/22/2015 None Full Exam - General 1994 Eyes pupils and irises Overall: pupils equal, round, reactive to light and accomodation 01/22/2015 None Full Exam - General 1994 Ears/Nose/Throat otoscopic exam Overall: external auditory canals clear 01/22/2015 None Full Exam - General 1994 Ears/Nose/Throat otoscopic exam Overall: tympanic membranes clear 01/22/2015 None Full Exam - General 1994 Ears/Nose/Throat lips/teeth/gingiva Overall: benign lips 01/22/2015 None Full Exam - General 1994 Ears/Nose/Throat lips/teeth/gingiva Overall: normal dentition 01/22/2015 None Full Exam - General 1994 Ears/Nose/Throat oral cavity/pharynx/larynx Overall: hypopharynx benign 01/22/2015 None Full Exam - General 1994 Ears/Nose/Throat oral cavity/pharynx/larynx Overall: no masses 01/22/2015 None Full Exam - General 1994 Ears/Nose/Throat oral cavity/pharynx/larynx Overall: oral mucosa clear 01/22/2015 None Full Exam - General 1994 Ears/Nose/Throat oral cavity/pharynx/larynx Overall: oropharyngeal mucosa clear 01/22/2015 None Full Exam - General 1994 Respiratory auscultation Overall: breath sounds clear bilaterally 01/22/2015 None Full Exam - General 1994 Respiratory respiratory effort/rhythm Overall: no retractions 01/22/2015 None Full Exam - General 1994 Respiratory respiratory effort/rhythm Overall: normal rate 01/22/2015 None Full Exam - General 1994 Cardiovascular extremities Overall: no clubbing 01/22/2015 None Full Exam - General 1994 Cardiovascular auscultation of heart Overall: normal heart sounds 01/22/2015 None Full Exam - General 1994 Cardiovascular auscultation of heart Overall: regular rate 01/22/2015 None Full Exam - General 1994 Abdomen abdominal exam Overall: no tenderness 01/22/2015 None Full Exam - General 1994 Abdomen abdominal exam Overall: normal bowel sounds 01/22/2015 None Full Exam - General 1994 Integument inspection of skin Overall: few scattered moles, no gross abnormalities 01/22/2015 None Full Exam - General 1994 Neurologic deep tendon reflexes Overall: deep tendon reflexes intact 01/22/2015 None Full Exam - General 1994 Neurologic cranial nerves Overall: crainial nerves 2 - 12 grossly intact 01/22/2015 None Full Exam - General 1994 Psychiatric orientation/consciousness Overall: oriented to person, place and time 01/22/2015 None Full Exam - General 1994 Psychiatric mood and affect Overall: normal mood and affect 01/22/2015 None Full Exam - General 1994 Abdomen abdominal exam Contour: protuberant 01/22/2015 left sided hernia - large hernia - mildl y TTP Procedures Procedure Codes Date THER/PROPH/DIAG INJ SC/IM CPT-4: 62107 09/02/2018 TRIAMCINOLONE ACET I [place] NOS CPT-4: J3301 09/02/2018 URINALYSIS NONAUTO W /O SCOPE CPT-4: 38972 03/05/2017 Vital Signs Date Vital 09/02/2018 Blood Pressure 1: 128/72 Code: 8480-6 BMI: 38.2 Code: 56384-5 Heart Rate 1: 80 bpm Height: 5'1" SpO2: 98% Weight: 202 lbs 04/14/2018 Blood Pressure 1: 116/78 Code: 8480-6 BMI: 41.6 Code: 18541-3 Heart Rate 1: 72 bpm Height: 5'1" SpO2: 98% Weight: 220 lbs 01/18/2018 Blood Pressure 1: 132/74 Code: 8480-6 BMI: 43.5 Code: 04469-9 Heart Rate 1: 70 bpm Height: 5'1" SpO2: 97% Weight: 230 lbs 01/04/2018 Blood Pressure 1: 134/76 Code: 8480-6 BMI: 42.7 Code: 53715-1 Heart Rate 1: 83 bpm Height: 5'1" SpO2: 98% Weight: 226 lbs 09/23/2017 Blood Pressure 1: 124/76 Code: 8480-6 BMI: 42.3 Code: 16667-7 Heart Rate 1: 94 bpm Height: 5'1" SpO2: 96% Weight: 224 lbs 05/27/2017 Blood Pressure 1: 146/78 Code: 8480-6 BMI: 41.4 Code: 71726-7 Heart Rate 1: 85 bpm Height: 5'1" SpO2: 98% Weight: 219 lbs 02/24/2017 Blood Pressure 1: 138/66 Code: 8480-6 BMI: 41.4 Code: 97729-5 Heart Rate 1: 78 bpm Height: 5'1" SpO2: 97% Weight: 219 lbs 11/02/2016 Blood Pressure 1: 144/72 Code: 8480-6 BMI: 46.1 Code: 68491-5 Heart Rate 1: 78 bpm Height: 5'1" SpO2: 98% Weight: 244 lbs 09/30/2016 Blood Pressure 1: 130/76 Code: 8480-6 BMI: 45.0 Code: 74411-4 Heart Rate 1: 86 bpm Height: 5'1" SpO2: 98% Weight: 238 lbs 09/10/2016 Blood Pressure 1: 136/68 Code: 8480-6 BMI: 46.3 Code: 19611-4 Heart Rate 1: 83 bpm Height: 5'1" SpO2: 98% Weight: 245 lbs 08/20/2016 Blood Pressure 1: 142/78 Code: 8480-6 BMI: 45.3 Code: 25791-5 Heart Rate 1: 84 bpm Height: 5'1" SpO2: 99% Weight: 240 lbs 06/08/2016 Blood Pressure 1: 134/76 Code: 8480-6 BMI: 44.2 Code: 12995-1 Heart Rate 1: 86 bpm Height: 5'1" SpO2: 96% Weight: 234 lbs 04/02/2016 Blood Pressure 1: 142/70 Code: 8480-6 BMI: 44.6 Code: 99868-6 Heart Rate 1: 78 bpm Height: 5'1" SpO2: 97% Weight: 236 lbs 01/14/2016 Blood Pressure 1: 146/72 Code: 8480-6 BMI: 44.2 Code: 60385-6 Heart Rate 1: 86 bpm Height: 5'1" SpO2: 96% Weight: 234 lbs 10/02/2015 Blood Pressure 1: 158/76 Code: 8480-6 BMI: 44.2 Code: 55123-6 Heart Rate 1: 67 bpm Height: 5'1" SpO2: 97% Weight: 234 lbs 07/15/2015 Blood Pressure 1: 200/90 Code: 8480-6 Blood Pressure 1: 148/78 Code: 8480-6 BMI: 44.0 Code: 15093-3 Heart Rate 1: 89 bpm Height: 5'1" SpO2: 97% Weight: 233 lbs 06/10/2015 Blood Pressure 1: 140/82 Code: 8480-6 BMI: 44.0 Code: 54902-3 Heart Rate 1: 78 bpm Height: 5'1" SpO2: 93% Weight: 233 lbs 01/22/2015 Blood Pressure 1: 136/64 Code: 8480-6 Heart Rate 1: 82 bpm Height: SpO2: 98% Weight: 225 lbs Functional Status No Functional Status data History of Present Illness Symptom Name Status Resu lt Effective Date Notes Location in the lung 09/02/2018 None Quality acute 09/02/2018 None Onset and Resolution s udden in onset 09/02/2018 None Onset and Resolution o ngoing 09/02/2018 None Pertinent Findings Den ies dyspnea 09/02/2018 None Location frontal sinuses 09/02/2018 None Location maxillary sin uses 09/02/2018 None Quality acute 09/02/2018 None Onset and Resolution D enies sudden in onset 09/02/2018 None Onset and Resolution D enies ongoing 09/02/2018 None Pertinent Findings Den ies fever 09/02/2018 None hypertension Quality kenji bernal hypertension 04/14/2018 None hypertension Onset and Resolution ongoing 04/14/2018 None hypertension Onset of Symptom during adulthood 04/14/2018 None hypertension Alleviating Factors medication 04/14/2018 None hypertension Pertinent Findings Denies dizziness 04/14/2018 None hypertension Pertinent Findings edema 04/14/2018 -better edema Onset and Resolution ongoing 04/14/2018 None hypertension Blood Pressure Values not checking blood pressure at home 04/14/2018 None hypertension Pertinent Findings Denies dyspnea 04/14/2018 None hypertension Quality chr onic 04/14/2018 None hypertension Quality sta ble 04/14/2018 None edema Location on both l egs 04/14/2018 None edema Frequency of Episodes decreasing 04/14/2018 None edema Alleviating Factors medication 04/14/2018 None hypertension Severity no t consistently severe symptoms, the symptoms fluctuate from no symptoms to anxiety and headaches 04/14/2018 None hypertension Frequency of Episodes unchanged 04/14/2018 None hypertension Quality int ermittent 01/18/2018 None hypertension Quality kenji bernal hypertension 01/18/2018 None hypertension Onset and Resolution ongoing 01/18/2018 None hypertension Onset of Symptom during adulthood 01/18/2018 None hypertension Alleviating Factors medication 01/18/2018 None hypertension Pertinent Findings dizziness 01/18/2018 -better- only one episode hypertension Pertinent Findings edema 01/18/2018 None edema Onset and Resolution ongoing 01/18/2018 None hypertension Quality int ermittent 01/04/2018 None hypertension Quality kenji bernal hypertension 01/04/2018 None hypertension Onset and Resolution ongoing 01/04/2018 None hypertension Onset of Symptom during adulthood 01/04/2018 None hypertension Alleviating Factors medication 01/04/2018 None hypertension Pertinent Findings edema 01/04/2018 None hypertension Pertinent Findings dizziness 01/04/2018 None abdominal pain Pertinent Findings bloating 01/04/2018 None abdominal pain Pertinent Findings nausea 01/04/2018 None abdominal pain Pertinent Findings lightheadedness 01/04/2018 None hypertension Quality int ermittent 09/23/2017 None hypertension Quality kenji bernal hypertension 09/23/2017 None hypertension Onset and Resolution ongoing 09/23/2017 None hypertension Onset of Symptom during adulthood 09/23/2017 None hypertension Blood Pressure Values not checking blood pressure at home 09/23/2017 None hypertension Alleviating Factors medication 09/23/2017 None hypertension Pertinent Findings Denies dizziness 09/23/2017 None hypertension Pertinent Findings Denies dyspnea 09/23/2017 None hypertension Pertinent Findings edema 09/23/2017 None hyperlipidemia Onset of Symptom during adulthood 09/23/2017 None hyperlipidemia Alleviating Factors medication 09/23/2017 None hyperlipidemia Exacerbating Factors diet 09/23/2017 None hyperlipidemia Onset and Resolution gradual in onset 09/23/2017 None hypothyroid Onset and Resolution ongoing 09/23/2017 None hypothyroid Alleviating Factors medication 09/23/2017 None hypertension Quality int ermittent 05/27/2017 None hypertension Quality kenji bernal hypertension 05/27/2017 None hypertension Onset and Resolution ongoing 05/27/2017 None hypertension Onset of Symptom during adulthood 05/27/2017 None hypertension Blood Pressure Values not checking blood pressure at home 05/27/2017 None hypertension Alleviating Factors medication 05/27/2017 None hypertension Pertinent Findings Denies dizziness 05/27/2017 None hypertension Pertinent Findings Denies dyspnea 05/27/2017 None hypertension Pertinent Findings edema 05/27/2017 None hyperlipidemia Onset of Symptom during adulthood 05/27/2017 None hyperlipidemia Onset and Resolution gradual in onset 05/27/2017 None hyperlipidemia Alleviating Factors medication 05/27/2017 None hyperlipidemia Exacerbating Factors diet 05/27/2017 None hypothyroid Onset and Resolution ongoing 05/27/2017 None hypothyroid Alleviating Factors medication 05/27/2017 None pre-op/surgery consult Referred by Dr. Sterling Kwan 02/24/2017 None pre-op/surgery consult Pertinent Findings Denies fever 02/24/2017 None pre-op/surgery consult Procedure to be performed Right hip replacement 02/24/2017 None pre-op/surgery consult Scheduled hoda e of procedure 03/10/2017 02/24/2017 Non e hypertension Quality int ermittent 11/02/2016 None hypertension Onset and Resolution ongoing 11/02/2016 None hypertension Onset of Symptom during adulthood 11/02/2016 None hypertension Alleviating Factors medication 11/02/2016 None hypertension Pertinent Findings dizziness 11/02/2016 -a couple of episodes hypertension Pertinent Findings Denies dyspnea 11/02/2016 None hypertension Pertinent Findings edema 11/02/2016 None edema Onset and Resolution ongoing 11/02/2016 None edema Frequency of Episodes daily 11/02/2016 None edema Triggers no known associated factors 11/02/2016 None edema Alleviating Factors medication 11/02/2016 None foot pain Location on th e left 11/02/2016 None foot pain Location plant ar heel 11/02/2016 None foot pain Onset and Resolution ongoing 11/02/2016 None hypertension Quality kenji gabe hypertension 11/02/2016 None hypertension Blood Pressure Values not checking blood pressure at home 11/02/2016 None edema Onset of Symptom 3 months ago 11/02/2016 None foot pain Quality interm ittent 11/02/2016 None foot pain Quality improv ing 11/02/2016 None foot pain Frequency of Episodes decreasing 11/02/2016 None hypertension Onset and Resolution ongoing 09/30/2016 None hypertension Onset of Symptom during adulthood 09/30/2016 None hypertension Blood Pressure Values patient checking blood pressure at home - did not bring in readings 09/30/2016 -Checks occasionally hypertension Alleviating Factors medication 09/30/2016 None hypertension Pertinent Findings edema 09/30/2016 None hypertension Pertinent Findings dizziness 09/30/2016 -a couple times over the last week hypertension Pertinent Findings Denies dyspnea 09/30/2016 None hypothyroid Onset and Resolution ongoing 09/30/2016 None hypothyroid Alleviating Factors medication 09/30/2016 None edema Onset and Resolution ongoing 09/30/2016 None foot pain Location plant ar heel 09/30/2016 None foot pain Location on th e left 09/30/2016 None hypertension Quality int ermittent 09/30/2016 None edema Onset of Symptom 2 months ago 09/30/2016 None edema Frequency of Episodes daily 09/30/2016 None edema Triggers no known associated factors 09/30/2016 None edema Alleviating Factors medication 09/30/2016 None foot pain Quality interm ittent 09/30/2016 None foot pain Onset and Resolution ongoing 09/30/2016 None foot pain Onset of Symptom 3-4 weeks ago 09/30/2016 None medication follow up Location oral intake 09/10/2016 None edema Onset and Resolution ongoing 09/10/2016 None edema Pertinent Findings limb pain / tenderness 09/10/2016 None edema Quality constant 09/10/2016 None medication follow up Location oral intake 08/20/2016 None edema Onset and Resolution gradual in onset 08/20/2016 None edema Onset of Symptom 1 weeks ago 08/20/2016 None edema Limitation on Activities moderately limits activities 08/20/2016 None edema Pertinent Findings Denies dyspnea 08/20/2016 None edema Location on both a nicci 08/20/2016 None edema Location on both l egs 08/20/2016 None edema Quality acute 08/20/2016 None medication follow up Additional Comments medication use 06/08/2016 None medication follow up Location oral intake 06/08/2016 None tinnitus Location on bot h sides 06/08/2016 None tinnitus Quality constant 06/08/2016 None tinnitus Quality high-pi tched 06/08/2016 None tinnitus Quality ringing 06/08/2016 None tinnitus Onset and Resolution sudden in onset 06/08/2016 None tinnitus Onset of Symptom 1 months ago 06/08/2016 None tinnitus Frequency of Episodes daily 06/08/2016 None cough Location in the th roat 04/02/2016 None cough Quality constant 04/02/2016 None cough Quality hacking 04/02/2016 None cough Quality productive 04/02/2016 None cough Onset and Resolution sudden in onset 04/02/2016 None cough Onset of Symptom 2 weeks ago 04/02/2016 None cough Frequency of Episodes daily 04/02/2016 None cough Triggers no known associated factors 04/02/2016 None cough Pertinent Findings chest discomfort 04/02/2016 None cough Pertinent Findings chills 04/02/2016 None cough Pertinent Findings fever 04/02/2016 None cough Pertinent Findings hoarseness 04/02/2016 None cough Pertinent Findings nasal congestion 04/02/2016 None sinus congestion Location frontal sinuses 04/02/2016 None sinus congestion Quality fullness 04/02/2016 None sinus congestion Onset and Resolution sudden in onset 04/02/2016 None chest congestion Onset and Resolution sudden in onset 04/02/2016 None chest congestion Onset of Symptom 2 weeks ago 04/02/2016 None abdominal pain Location diffusely 01/14/2016 None abdominal pain Quality c ramping 01/14/2016 None abdominal pain Quality i ntermittent 01/14/2016 None abdominal pain Quality w orsening 01/14/2016 None abdominal pain Onset and Resolution sudden in onset 01/14/2016 None abdominal pain Onset of Symptom 3 days ago 01/14/2016 None abdominal pain Limitation on Activities moderately limits activities 01/14/2016 None abdominal pain Pertinent Findings abdominal distension 01/14/2016 None shoulder pain Location d eep 10/02/2015 None shoulder pain Quality ac sebastian 10/02/2015 None shoulder pain Quality co nstant 10/02/2015 None shoulder pain Quality sh aarti 10/02/2015 None shoulder pain Onset and Resolution sudden in onset 10/02/2015 None shoulder pain Onset of Symptom 4 days ago 10/02/2015 None shoulder pain Limitation on Activities moderately limits activities 10/02/2015 None shoulder pain Frequency of Episodes daily 10/02/2015 None edema Onset and Resolution sudden in onset 07/15/2015 None edema Onset of Symptom 1 weeks ago 07/15/2015 None edema Limitation on Activities does not limit activities 07/15/2015 None edema Frequency of Episodes daily 07/15/2015 None edema Pertinent Findings limb pain / tenderness 07/15/2015 None edema Location on the le ft leg 07/15/2015 None edema Quality pitting 07/15/2015 None weight gain/obesity Location globally 06/10/2015 None weight gain/obesity Pertinent Findings Denies dyspnea 06/10/2015 None weight gain/obesity Pertinent Findings edema 06/10/2015 None arm pain Location right arm 06/10/2015 right shoulder arm pain Radiating Right Shoulder 06/10/2015 None arm pain Quality intermi ttent 06/10/2015 None arm pain Quality aching 06/10/2015 None arm pain Onset of Symptom 4 months ago 06/10/2015 None arm pain Limitation on Activities moderately limits activities 06/10/2015 None arm pain Severity modera te 06/10/2015 None arm pain Extent of Symptoms numbness of right upper extremity 06/10/2015 None arm pain Extent of Symptoms weakness of right upper extremity 06/10/2015 None arm pain Frequency of Episodes daily 06/10/2015 None arm pain Mechanism of injury fall from height 06/10/2015 she was wearing crocs and there was a new egyptian on the floor: her foot didn't move as she was walking and she fell forward into wall. arm pain Pertinent Findings Denies female 06/10/2015 None arm pain Pertinent Findings Denies right hand dominant 06/10/2015 None arm pain Pertinent Findings pain with movement 06/10/2015 None edema Onset and Resolution ongoing 06/10/2015 None edema Pertinent Findings Denies dyspnea 06/10/2015 None edema Pertinent Findings Denies nausea 06/10/2015 None hernia Quality chronic 01/22/2015 None hernia Onset and Resolution ongoing 01/22/2015 None hernia Onset of Symptom during adulthood 01/22/2015 None hernia Severity mild 01/22/2015 None weight gain/obesity Quality chronic 01/22/2015 None weight gain/obesity Onset and Resolution ongoing 01/22/2015 None weight gain/obesity Onset of Symptom _ years ago 01/22/2015 None gastroesophageal reflux Quality acute 01/22/2015 None gastroesophageal reflux Onset and Re solution sudden in onset 01/22/2015 None gastroesophageal reflux Severity moderate 01/22/2015 None gastroesophageal reflux Diet includes caffeine 01/22/2015 None gastroesophageal reflux Significant Medical Conditions cardiac disease 01/22/2015 None Advance Directives No Advance Directive data Encounters Encounter Performer Loca tion Codes Date EST. PATIENT, LEVEL IV Diagnosis: Other acute sinusitis[ICD10: J01.80] Diagnosis: Other allergic rhinitis[ICD10: J30.89] [facility] CPT-4: 74662 09/02/2018 ([id number] EST. 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 P ATIENT, LEVEL III Diagnosis: Localized edema[ICD10: R60.0] Diagnosis: Gastro-esophageal reflux disease without esophagitis[ICD10: K21.9] Edna Almanza MD, [facility] CPT-4: 66151 01/18/2018 ([id number]) [id number] EST. P ATIENT, LEVEL IV Diagnosis: Gastro-esophageal reflux disease without esophagitis[ICD10: K21.9] Diagnosis: Localized edema[ICD10: R60.0] Diagnosis: Essential (primary) hypertension[ICD10: I10] Diagnosis: Hypothyroidism, unspecified[ICD10: E03.9] Diagnosis: Impaired fasting glucose[ICD10: R73.01] Edna Almanza MD, [facility] CPT-4: 10851 01/04/2018 ([id number]) 43802 EST. 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 P ATIENT, LEVEL IV Diagnosis: Essential (primary) hypertension[ICD10: I10] Diagnosis: Mixed hyperlipidemia[ICD10: E78.2] Diagnosis: Hypothyroidism, unspecified[ICD10: E03.9] Diagnosis: Impaired fasting glucose[ICD10: R73.01] Diagnosis: nursing home (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[ICD10: Z79.01] Edna Almanza MD, [facility] CPT-4: 64677 05/27/2017 [id number] EST. PATIENT, LEVEL III Diagnosis: Pain in right hip[ICD10: M25.551] Nata Almanza MD, [facility] CPT-4: 75740 02/24/2017 ([id number]) 26806 EST. P ATIENT, LEVEL IV Diagnosis: Essential (primary) hypertension[ICD10: I10] Diagnosis: Localized edema[ICD10: R60.0] Diagnosis: Pain in right hip[ICD10: M25.551] Sarai Almanza MD, [facility] CPT-4: 88376 11/02/2016 ([id number]) 80948 EST. P ATIENT, LEVEL IV Diagnosis: Essential (primary) hypertension[ICD10: I10] Diagnosis: Localized edema[ICD10: R60.0] Sarai Almanza MD, [facility] CPT-4: 36202 09/30/2016 [id number] EST. PATIENT, LEVEL IV Diagnosis: Localized edema[ICD10: R60.0] Diagnosis: Pain in joints of left hand[ICD10: M25.542] Diagnosis: Pain in joints of right hand[ICD10: M25.541] Nata Almanza MD, [facility] CPT-4: 44261 09/10/2016 [id number] EST. PATIENT, LEVEL IV Diagnosis: Localized edema[ICD10: R60.0] Diagnosis: Pain in joints of left hand[ICD10: M25.542] Diagnosis: Pain in joints of right hand[ICD10: M25.541] Diagnosis: Other fatigue[ICD10: R53.83] Nata Almanza MD, [facility] CPT-4: 75446 08/20/2016 53315 EST. 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 CPT-4: 87669 06/08/2016 75833 EST. PATIENT, LEVEL IV Diagnosis: Other allergic rhinitis[ICD10: J30.89] Diagnosis: Acute laryngopharyngitis[ICD10: J06.0] Nata Almanza MD, [facility] CPT-4: 15049 04/02/2016 20168 EST. PATIENT, LEVEL IV Diagnosis: Left upper quadrant pain[ICD10: R10.12] Nata Almanza MD, [facility] CPT-4: 75068 01/14/2016 84082 EST. PATIENT, LEVEL IV Diagnosis: Pain in left shoulder[ICD10: M25.512] Diagnosis: Body mass index (BMI) 40.0-44.9, adult[ICD10: Z68.41] Nata Almanza MD, [facility] CPT-4: 85713 10/02/2015 35202 EST. PATIENT, LEVEL IV Diagnosis: Pain in left leg[ICD10: M79.605] Diagnosis: Other assisted (current) drug therapy[ICD10: Z79.899] [facility] CPT-4: 47057 07/15/2015 ([id number]) 97508 EST. 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] [facility] CPT-4: 47327 06/10/2015 ([id number]) OFFICE VISI , [facility] - LEVEL 4 Diagnosis: ESSENTIAL HYPERTENSION[ICD9: 401.9] Diagnosis: HYPOTHYROIDISM[ICD9: 244.9] Diagnosis: ENCNTR LONG-RX USE NEC[ICD9: V58.69] Diagnosis: HYPERLIPIDEMIA[ICD9: 272.4] Diagnosis: Vitamin B12 deficiency[ICD9: 266.2] Diagnosis: Status post gastric surgery[ICD9: V45.89] Diagnosis: Snoring[ICD9: 786.09] [facility] CPT-4: 58568 01/22/2015 Plan of Care Planned Activity Notes C odes Status Date Patient Education: Patient Medication Summary Completed 10/05/2018 Visit Plan: Sinusitis - Pt has acut e infection - pain in face, maxillary region, Pt informed to use decongestant, RX given to patient, sinus rinses also recommended. Call if symptoms do not show improvement. Allerg ies - chronic - recommended pt to use allergy medication as prescribed. Pt has been counseled as to the appropriate use of the medication. Pt to call if allergy symptoms are not controlled with the medication. If using nasal spray, instructions as follows: Nasal spray- use twice daily, one spray per nostril twice daily, after 30 minutes, rinse out nose with saline spray.. Use opposite hand per nostril to spray in the nasal steroid allergy spray. 09/02/2018 Appointment: Nata Hsu WPtel: [address] [place], [place] [id number] [place] (15 min) Moderate 09/02/2018 Patient Education: Patient Medication Summary Completed 09/02/2018 Visit Plan: Hypertension - well con trolled - continue with current medications, continue with no added salt diet. Pt has been encouraged to exercise daily. The pt has been advised to call the office if there are any acute concerns about change in blood pressure readings at home. Hypothyroidism - pt with chronic hypothyroidism, continue with current medication, will monitor pt to signs or symptoms of lack of adequate supplementation. Pt is to continue with current dose of medication unless directed otherwise. Check labs at regular intervals q 3 months or q 6 months based on previous levels of control. Elevated blood sugars-check Hgb A1C 04/14/2018 Appointment: Edna Douglas WPtel: [facility] (15 min) Moderate 04/14/2018 Patient Education: Patient Medication Summary Completed 04/14/2018 Patient Education: Hypertension Completed 04/14/2018 Care Plan: Urine Culture Pending 04/14/2018 Visit Plan: Edema - pt has been adv ised to elevate legs to prevent dependent edema, compression has been recommended to help to naturally decrease peripheral edema. Diuretic use has been discussed and pt has been i nstructed in appropriate use of such medication as necessary to further attempt to reduce peripheral edema. YLYX-nvzbtpha-fjfjgkbd prilosec BID and carafate QID -discussed low spice, low acidic diet 01/18/2018 Appointment: Edna Douglas WPtel: [facility] [place] [phone] (15 min) Moderate 01/18/2018 Patient Education: Patient Medication Summary Completed 01/18/2018 Visit Plan: Esophageal Reflux - the patient has been counseled against excessive intake of caffeine, spicy foods, peppermint, and cinnamon - all of which can exacerbate esophageal reflux. The patient is to take medications as prescribed and call the office if the symptoms are not improving. Edema - pt has been advised to elevate legs to prevent dependent edema, compression has been recommended to help to naturally decrease peripheral edema. Diuretic use has been discussed and pt has been instructed in appropriate use of such medication as necessary to further attempt to reduce peripheral edema. Hypothyroidism - pt with chronic hypothyroidism, continue with current medication, will monitor pt to signs or symptoms of lack of adequate supplementation. Pt is to continue with current dose of medication unless dire cted otherwise. Check labs at regular intervals wither q 3 months or q 6 months based on previous levels of control. 01/04/2018 Visit Plan: Esophageal Reflux - the patient has been counseled against excessive intake of caffeine, spicy foods, peppermint, and cinnamon - all of which can exacerbate esophageal reflux. The patient is to take medications as prescribed and call the office if the symptoms are not improving. Edema - pt has been advised to elevate legs to prevent dependent edema, compression has been recommended to help to naturally decrease peripheral edema. Diuretic use has been discussed and pt has been instructed in appropriate use of such medication as necessary to further attempt to reduce peripheral edema. Hypothyroidism - pt with chronic hypothyroidism, continue with current medication, will monitor pt to signs or symptoms of lack of adequate supplementation. Pt is to continue with current dose of medication unless dire cted otherwise. Check labs at regular intervals wither q 3 months or q 6 months based on previous levels of control. 01/04/2018 Appointment: Edna Douglas WPtel: [phone] (30 min) Complex 01/04/2018 Patient Education: Patient Medication Summary Completed 01/04/2018 Care Plan: SCREENINGMAMMOGRAPHYDIGITAL LOINC : 82300-0 Pending 01/04/2018 Visit Plan: Abdominal hernia - not able to be taken to surgery by local providers and pt has been seen at [facility] and that surgeon felt like Kat would be better served by Dr. Betancur at [facility] I benito singh recommended a referral to dr. cecelia betancur at . Chronic anticoagulation - continue with coumadin - encouraged pt to stop green Tea supplement and check INR today. Hypertension - well controlled - continue with current medications, continue with no added salt diet. Pt has been encouraged to exercise daily. The pt has been advised to call the office if there are any acute concerns about change in blood pressure readings at home. Hypothyroidism - pt with chronic hypothyroidism, continue with current medication, will monitor pt to signs or symptoms of lack of adequate supplementation. Pt is to continue with current dose of medication unless directed otherwise. Check labs at regular intervals wither q 3 months or q 6 months based on previous levels of control. Hypertension - well controlled - continue with current medications, continue with no added salt diet. Pt has been encouraged to exercise daily. The pt has been advised to call the office if there are any acute concerns about change in blood pressure readings at home. 09/23/2017 Appointment: [phone] [facility] (15 min) Moderate 09/23/2017 Patient Education: Patient Medication Summary Completed 09/23/2017 Visit Plan: Hypertension - well con trolled - continue with current medications, continue with no added salt diet. Pt has been encouraged to exercise daily. The pt has been advised to call the office if there are any acute concerns about change in blood pressure readings at home. Hypothyroidism - pt with chronic hypothyroidism, continue with current medication, will monitor pt to signs or symptoms of lack of adequate supplementation. Pt is to continue with current dose of medication unless directed otherwise. Check labs at regular intervals wither q 3 months or q 6 months based on previous levels of control. H yperlipidemia - pt has been counseled about appropriate diet, exercise, and need for low fat food choices. I have discussed the need for the patient to take medications as prescribed. If the patient has negative side effects from the medication, they are to CALL the office and not abruptly discontinue the medication without discussion with a practitioner in the office. We will check labs in 3-6 months for follow up on the patient's chronic medical problem and to assure normal liver response to medications. 05/27/2017 Appointment: Edna Douglas WPtel: [phone] [phone] (30 min) Complex 05/27/2017 Patient Education: Patient Medication Summary Completed 05/27/2017 Patient Education: Obesity Completed 05/27/2017 Appointment: Lab Draw 03/05/2017 Patient Education: Patient Medication Summary Completed 03/05/2017 Visit Plan: Surgical clearance for right hip replacement - Dr. Almanza in to evaluate pt - pt is OK to proceed with surgery. Pt is to have her PT/INR repeated on 03/03 - she will need to be on Lovenox prior to surgery. Pt is to contact her surgeon and notify clinic if they plan to order Lovenox or is this clinic is to manage Lovenox. Pt is to stop her ASA now. Pt is to also have surgical clearance by Dr. Palacios. 02/24/2017 Appointment: Nata Hsu WPtel: [phone] [id number] (30 min) Complex 02/24/2017 Patient Education: Patient Medication Summary Completed 02/24/2017 Patient Education: Obesity Completed 02/24/2017 Visit Plan: Hypertension - well con trolled - continue with current medications, continue with no added salt diet. Pt has been encouraged to exercise daily. The pt has been advised to call the office if there are any acute concerns about change in blood pressure readings at home. Edema - pt has been advised to elevate legs to prevent dependent edema, compression has been recommended to help to naturally decrease peripheral edema. Diuretic use has been discussed and pt has been instructed in appropriate use of such medication as necessary to further attempt to reduce peripheral edema. Pain in right hip - recommended pt to have xray today of hip. - may need injection from dr. Chaney. 11/02/2016 Appointment: Sarai [facility]man[facility]Ptel[facility] [phone] [facility] (15 min) Moderate 11/02/2016 Patient Education: Patient Medication Summary Completed 11/02/2016 Patient Education: Obesity Completed 11/02/2016 Patient Education: Patient Medication Summary Completed 10/08/2016 Visit Plan: Hypertension - well con trolled - continue with current medications, continue with no added salt diet. Pt has been encouraged to exercise daily. The pt has been advised to call the office if there are any acute concerns about change in blood pressure readings at home. Edema - pt has been advised to elevate legs to prevent dependent edema, compression has been recommended to help to naturally decrease peripheral edema. Diuretic use has been discussed and pt has been instructed in appropriate use of such medication as necessary to further attempt to reduce peripheral edema. 09/30/2016 Appointment: [facility] Alman[facility]Ptel[facility] [phone] [facility] (15 min) Moderate 09/30/2016 Patient Education: Patient Medication Summary Completed 09/30/2016 Patient Education: Obesity Completed 09/30/2016 Patient Education: Hypertension Completed 09/30/2016 Patient Education: Patient Medication Summary Completed 09/18/2016 Care Plan: Metabolic Ordered 09/18/2016 Visit Plan: Edema - pt has been adv ised to elevate legs to prevent dependent edema, compression has been recommended to help to naturally decrease peripheral edema. Diuretic use has been discussed and pt has been i nstructed in appropriate use of such medication as necessary to further attempt to reduce peripheral edema. 09/10/2016 Appointment: Nata Hsu WPtel: [address] [place] [phone] (30 min) Complex 09/10/2016 Patient Education: Patient Medication Summary Completed 09/10/2016 Visit Plan: Joint complaints, fatig ue - will check labs, will treat as indicated - pt is to notify clinic if symptoms do not improve, if they worsen, or with any questions or concerns. Edema - pt has been advised to elevate legs to prevent dependent edema, compression has been recommended to help to naturally decrease peripheral edema. Diuretic use has been discussed and pt has been instructed in appropriate use of such medication as necessary to further attempt to reduce peripheral edema. 08/20/2016 Appointment: Nata Hsu WPtel: [facility] (30 min) Complex 08/20/2016 Patient Education: Patient Medication Summary Completed 08/20/2016 Referral: Otf Lee [address] Referral Initiated 07/02/2016 Visit Plan: Chronic Anticoagulant u se - Pt has been counseled about the anticoagulant, need for serial monitoring, and need for the pt to alert the physician as to any new bruising, or acute bleeding. Therapeutic goal for INR is between 2.0 and 3.5. - Current level 3.9, will have pt hold coumadin for 2 days, then repeat PT INR on Wednesday. Tinnitus - ongoing, was originally improved after starting flonase, but pt states that the symptoms are worsening now - Will refer to Dr. Lee 06/08/2016 Patient Education: Patient Medication Summary Completed 06/08/2016 Care Plan: Referral Order SNOMED-CT : [id number] Pending 06/08/2016 Visit Plan: URI - Pt advised to inc rease fluids, vitamin C. Discussed natural and expected course of this diagnosis and need to alert me if symptoms do not follow expected course, or if any worse. RX sent to patient's pharmacy. Allergies - chronic - recommended pt to use allergy medication as prescribed. Pt has been counseled as to the appropriate use of the medication. Pt to call if allergy symptoms are not controlled with the medication. If using nasal spray, instructions as follows: Nasal spray- use twice daily, one spray per nostril twice daily, after 30 minutes, rinse out nose with saline spray.. Use opposite hand per nostril to spray in the nasal steroid allergy spray. 04/02/2016 Appointment: Nata Hsu WPtel: [id number] (30 min) Complex 04/02/2016 Patient Education: Patient Medication Summary Completed 04/02/2016 Patient Education: Obesity Completed 04/02/2016 Visit Plan: right upper quadrant pa in - pt states that over the weekend she had abdominal and was worried about a hernia - she states that she has had one in the past and that Dr. Portillo repaired it with mesh - pt states that she does not have any pain now - no discoloration noted, abdomen is soft to palpation - colostomy in place. Pt is to notify clinic if symptoms return - pt is to go to the ER with acute pain 01/14/2016 Appointment: Edna Douglas WPtel: [phone] (30 min) Complex 01/14/2016 Patient Education: Patient Medication Summary Completed 01/14/2016 Patient Education: Obesity Completed 01/14/2016 Care Plan: BMI Above normal followup DAVID F-MGMT EDUC & TRAIN 1 PT Pending 10/24/2015 Care Plan: X-RAY EXAM OF SHOULDER LOINC : [id number] Pending 10/24/2015 Visit Plan: Left shoulder pain - pt states that she noticed left shoulder pain after she did some yard work. Will order X-ray. The pt is to use prn antiinflammatories to manage acute pain. The patient is to call the office if the pain is worsening or does not improve. BMI 44 - The pt has been counseled about diet changes, calorie restriction, and need to exercise. Pt will RTC for weight check. 10/02/2015 Appointment: Edna Douglas WPtel: [phone] [phone] (15 min) Moderate 10/02/2015 Patient Education: Patient Medication Summary Completed 10/02/2015 Patient Education: Obesity Completed 10/02/2015 Appointment: (15 min) Moderate 09/02/2015 Visit Plan: Pt states that she fell on the bleachers a few days ago and hit her anterior thomas. pt states that the swelling has gone down, but that it is still painful. Pt has some swelling with mild erythema and warmth to the area - will start on abx for Cellulitis - check PT INR on Wednesday. Notify clinic if symptoms do not improve, if they worsen, or with other concerns. 07/15/2015 Appointment: (30 min) Complex 07/15/2015 Patient Education: Patient Medication Summary Completed 07/15/2015 Patient Education: Patient Medication Summary Completed 06/11/2015 Patient Education: Patient Medication Summary Completed 06/11/2015 Visit Plan: Hypertension - well con trolled - continue with current medications, continue with no added salt diet. Pt has been encouraged to exercise daily. The pt has been advised to call the office if there are any acute concerns about change in blood pressure readings at home. Edema - pt has been advised to elevate legs to prevent dependent edema, compression has been recommended to help to naturally decrease peripheral edema. Diuretic use has been discussed and pt has been instructed in appropriate use of such medication as necessary to further attempt to reduce peripheral edema. Hyperlipidemia - pt has been counseled about appropriate diet, exercise, and need for low fat food choices. I have discussed the need for the patient to take medications as prescribed. If the patient has negative side effects from the medication, they are to CALL the office and not abruptly discontinue the medication without discussion with a practitioner in the office. We will check labs in 3-6 months for follow up on the patient's chronic medical problem and to assure normal liver response to medications. Right shoulder pain-xray right shoulder-tylenol as directed-hydrocodone in between as needed Chronic Anticoagulant use - Pt has been counseled about the anticoagulant, need for serial monitoring, and need for the pt to alert the physician as to any new bruising, or acute bleeding. Therapeutic goal for INR is between 2.0 and 3.5. 06/10/2015 Appointment: (15 min) Moderate 06/10/2015 Patient Education: Patient Medication Summary Completed 06/10/2015 Patient Education: Hypertension Completed 06/10/2015 Patient Education: .Amazing charts Rotator cuff exerci ses Completed 06/10/2015 Appointment: Sarai Almanza WPtel[id number] (15 min) Moderate 04/22/2015 Visit Plan: Hypertension - well con trolled - continue with current medications, continue with no added salt diet. Pt has been encouraged to exercise daily. The pt has been advised to call the office if there are any acute concerns about change in blood pressure readings at home. Abdominal hernia - pt to have surgical fixation - planning occurring at [facility]. Snoring - Sleep apnea symptoms with difficulty loosing weight, daytime sleepiness - recommended sleep study. Chronic anticoagulation - monitor monthly. Hyperlipidemia - pt has been counseled about appropriate diet, exercise, and need for low fat food choices. I have discussed the need for the patient to take medications as prescribed. If the patient has negative side effects from the medication, they are to CALL the office and not abruptly discontinue the medication without discussion with a practitioner in the office. We will check labs in 3-6 months for follow up on the patient's chronic medical problem and to assure normal liver response to medications. 01/22/2015 Appointment: Sarai Almanza WPtel: [id number] [place] ([place]) New Patient 01/22/2015 Patient Education: Patient Medication Summary Completed 01/22/2015 Patient Education: Hypertension Completed 01/22/2015 Referral: [id number] Referral Initiated Instructions Comment steroid shot today prednisone taper - 60mg x 1 day, then 50mg x 1 day, then 40mg x 1 day, then 30mg x 1 day, then 20mg x 1 day, then 10mg x 1 day antibiotic will check labs today will give mammogram order. Sinusitis - Pt has acute infection - pain in face, maxillary region, Pt informed to use decongestant, RX given to patient, sinus rinses also recommended. Call if symptoms do not show improvement. Allergies - chronic - recommended pt to use allergy medication as prescribed. Pt has been counseled as to the appropriate use of the medication. Pt to call if allergy symptoms are not controlled with the medication. If using nasal spray, instructions as follows: Nasal spray- use twice daily, one spray per nostril twice daily, after 30 minutes, rinse out nose with saline spray.. Use opposite hand per nostril to spray in the nasal steroid allergy spray. . Hypertension - wel l controlled - continue with current medications, continue with no added salt diet. Pt has been encouraged to exercise daily. The pt has been advised to call the office if there are any acute concerns about change in blood pressure readings at home. Edema - pt has been advised to elevate legs to prevent dependent edema, compression has been recommended to help to naturally decrease peripheral edema. Diuretic use has been discussed and pt has been instructed in appropriate use of such medication as necessary to further attempt to reduce peripheral edema. Pain in right hip - recommended pt to have xray today of hip. - may need injection from dr. Chaney. . Surgical clearance for right hip replacement - Dr. Almanza in to evaluate pt - pt is OK to proceed with surgery. Pt is to have her PT/INR repeated on 03/03 - she will need to be on Lovenox prior to surgery. Pt is to contact her surgeon and notify clinic if they plan to order Lovenox or is this clinic is to manage Lovenox. Pt is to stop her ASA now. Pt is to also have surgical clearance by Dr. Palacios. . right upper quadra nt pain - pt states that over the weekend she had abdominal and was worried about a hernia - she states that she has had one in the past and that Dr. Portillo repaired it with mesh - pt states that she does not have any pain now - no discoloration noted, abdomen is soft to palpation - colostomy in place. Pt is to notify clinic if symptoms return - pt is to go to the ER with acute pain . URI - Pt advised t o increase fluids, vitamin C. Discussed natural and expected course of this diagnosis and need to alert me if symptoms do not follow expected course, or if any worse. RX sent to patient's pharmacy. Allergies - chronic - recommended pt to use allergy medication as prescribed. Pt has been counseled as to the appropriate use of the medication. Pt to call if allergy symptoms are not controlled with the medication. If using nasal spray, instructions as follows: Nasal spray- use twice daily, one spray per nostril twice daily, after 30 minutes, rinse out nose with saline spray.. Use opposite hand per nostril to spray in the nasal steroid allergy spray. . Hypertension - wel l controlled - continue with current medications, continue with no added salt diet. Pt has been encouraged to exercise daily. The pt has been advised to call the office if there are any acute concerns about change in blood pressure readings at home. Hypothyroidism - pt with chronic hypothyroidism, continue with current medication, will monitor pt to signs or symptoms of lack of adequate supplementation. Pt is to continue with current dose of medication unless directed otherwise. Check labs at regular intervals wither q 3 months or q 6 months based on previous levels of control. Hyperlipidemia - pt has been counseled about appropriate diet, exercise, and need for low fat food choices. I have discussed the need for the patient to take medications as prescribed. If the patient has negative side effects from the medication, they are to CALL the office and not abruptly discontinue the medication without discussion with a practitioner in the office. We will check labs in 3-6 months for follow up on the patient's chronic medical problem and to assure normal liver response to medications. . Left shoulder pain - pt states that she noticed left shoulder pain after she did some yard work. Will order X-ray. The pt is to use prn antiinflammatories to manage acute pain. The patient is to call the office if the pain is worsening or does not improve. BMI 44 - The pt has been counseled about diet changes, calorie restriction, and need to exercise. Pt will RTC for weight check. . Edema - pt has bee n advised to elevate legs to prevent dependent edema, compression has been recommended to help to naturally decrease peripheral edema. Diuretic use has been discussed and pt has been instructed in appropriate use of such medication as necessary to further attempt to reduce peripheral edema. REFILL CARAFATE DISCUSSED EGD IF SYMPTOMS PERSIST CHECK LABS -CONSIDER INCREASE IN LASIX BUT WILL REVIEW LABS FIRST . Edema - pt has been advised to elevate legs to prevent dependent edema, compression has been recommended to help to naturally decrease peripheral edema. Diuretic use has been discussed and pt has been instructed in appropriate use of such medication as necessary to further attempt to reduce peripheral edema. ETLC-olyhqcyc-qoxrluia prilosec BID and carafate QID -discussed low spice, low acidic diet CONTINUE LASIX NE EDED FOR SWELLING CHECK LABS INCREASE PRILOSEC TO TWICE DAILY CARAFATE BEFORE MEALS AND BEDTIME -DISSOLVE IN WATER LET ME KNOW IF YOUR CRYING EPISODES CONTINUE MAMMOGRAM . Esophageal Reflux - the patient has be en counseled against excessive intake of caffeine, spicy foods, peppermint, and cinnamon - all of which can exacerbate esophageal reflux. The patient is to take medications as prescribed and call the office if the symptoms are not improving. Edema - pt has been advised to elevate legs to prevent dependent edema, compression has been recommended to help to naturally decrease peripheral edema. Diuretic use has been discussed and pt has been instructed in appropriate use of such medication as necessary to further attempt to reduce peripheral edema. Hypothyroidism - pt with chronic hypothyroidism, continue with current medication, will monitor pt to signs or symptoms of lack of adequate supplementation. Pt is to continue with current dose of medication unless directed otherwise. Check labs at regular intervals wither q 3 months or q 6 months based on previous levels of control. CONTINUE LASIX NE EDED FOR SWELLING CHECK LABS INCREASE PRILOSEC TO TWICE DAILY CARAFATE BEFORE MEALS AND BEDTIME -DISSOLVE IN WATER LET ME KNOW IF YOUR CRYING EPISODES CONTINUE MAMMOGRAM . Esophageal Reflux - the patient has be en counseled against excessive intake of caffeine, spicy foods, peppermint, and cinnamon - all of which can exacerbate esophageal reflux. The patient is to take medications as prescribed and call the office if the symptoms are not improving. Edema - pt has been advised to elevate legs to prevent dependent edema, compression has been recommended to help to naturally decrease peripheral edema. Diuretic use has been discussed and pt has been instructed in appropriate use of such medication as necessary to further attempt to reduce peripheral edema. Hypothyroidism - pt with chronic hypothyroidism, continue with current medication, will monitor pt to signs or symptoms of lack of adequate supplementation. Pt is to continue with current dose of medication unless directed otherwise. Check labs at regular intervals wither q 3 months or q 6 months based on previous levels of control. . Abdominal hernia - not able to be taken to surgery by local providers and pt has been seen at [facility] and that surgeon felt like Kat would be better served by Dr. Betancur [facility] I have recommended a referral to dr. cecelia betancur at . Chronic anticoagulation - continue with coumadin - encouraged pt to stop green Tea supplement and check INR today. Hypertension - well controlled - continue with current medications, continue with no added salt diet. Pt has been encouraged to exercise daily. The pt has been advised to call the office if there are any acute concerns about change in blood pressure readings at home. Hypothyroidism - pt with chronic hypothyroidism, continue with current medication, will monitor pt to signs or symptoms of lack of adequate supplementation. Pt is to continue with current dose of medication unless directed otherwise. Check labs at regular intervals wither q 3 months or q 6 months based on previous levels of control. Hypertension - well controlled - continue with current medications, continue with no added salt diet. Pt has been encouraged to exercise daily. The pt has been advised to call the office if there are any acute concerns about change in blood pressure readings at home. . Chronic Anticoagul ant use - Pt has been counseled about the anticoagulant, need for serial monitoring, and need for the pt to alert the physician as to any new bruising, or acute bleeding. Therapeutic goal for INR is between 2.0 and 3.5. - Current level 3.9, will have pt hold coumadin for 2 days, then repeat PT INR on Wednesday. Tinnitus - ongoing, was originally improved after starting flonase, but pt states that the symptoms are worsening now - Will refer to Dr. Lee Come in Wednesday to [place] ve PT INR checked. . Pt states that she fell on the bleachers a few days ago and hit her anterior thomas. pt states that the swelling has gone down, but that it is still painful. Pt has some swelling with mild erythema and warmth to the area - will start on abx for Cellulitis - check PT INR on Wednesday. Notify clinic if symptoms do not improve, if they worsen, or with other concerns. dr almanza will eusebio e the staff get you scheduled for a sleep study . Hypertension - well controlled - agapito nue with current medications, continue with no added salt diet. Pt has been encouraged to exercise daily. The pt has been advised to call the office if there are any acute concerns about change in blood pressure readings at home. Abdominal hernia - pt to have surgical fixation - planning occurring at [facility]. Snoring - Sleep apnea symptoms with difficulty loosing weight, daytime sleepiness - recommended sleep study. Chronic anticoagulation - monitor monthly. Hyperlipidemia - pt has been counseled about appropriate diet, exercise, and need for low fat food choices. I have discussed the need for the patient to take medications as prescribed. If the patient has negative side effects from the medication, they are to CALL the office and not abruptly discontinue the medication without discussion with a practitioner in the office. We will check labs in 3-6 months for follow up on the patient's chronic medical problem and to assure normal liver response to medications. . Hypertension - wel l controlled - continue with current medications, continue with no added salt diet. Pt has been encouraged to exercise daily. The pt has been advised to call the office if there are any acute concerns about change in blood pressure readings at home. Hypothyroidism - pt with chronic hypothyroidism, continue with current medication, will monitor pt to signs or symptoms of lack of adequate supplementation. Pt is to continue with current dose of medication unless directed otherwise. Check labs at regular intervals q 3 months or q 6 months based on previous levels of control. Elevated blood sugars-check Hgb A1C XRAY RIGHT SHOULDER CUT BACK ON SODIUM/SALTY FOODS-CANNED FOODS, FROZEN FOODS, FAST FOODS . Hypertension - well controlled - agapito nue with current medications, continue with no added salt diet. Pt has been encouraged to exercise daily. The pt has been advised to call the office if there are any acute concerns about change in blood pressure readings at home. Edema - pt has been advised to elevate legs to prevent dependent edema, compression has been recommended to help to naturally decrease peripheral edema. Diuretic use has been discussed and pt has been instructed in appropriate use of such medication as necessary to further attempt to reduce peripheral edema. Hyperlipidemia - pt has been counseled about appropriate diet, exercise, and need for low fat food choices. I have discussed the need for the patient to take medications as prescribed. If the patient has negative side effects from the medication, they are to CALL the office and not abruptly discontinue the medication without discussion with a practitioner in the office. We will check labs in 3-6 months for follow up on the patient's chronic medical problem and to assure normal liver response to medications. Right shoulder pain-xray right shoulder-tylenol as directed-hydrocodone in between as needed Chronic Anticoagulant use - Pt has been counseled about the anticoagulant, need for serial monitoring, and need for the pt to alert the physician as to any new bruising, or acute bleeding. Therapeutic goal for INR is between 2.0 and 3.5. . Joint complaints, fatigue - will check labs, will treat as indicated - pt is to notify clinic if symptoms do not improve, if they worsen, or with any questions or concerns. Edema - pt has been advised to elevate legs to prevent dependent edema, compression has been recommended to help to naturally decrease peripheral edema. Diuretic use has been discussed and pt has been instructed in appropriate use of such medication as necessary to further attempt to reduce peripheral edema. . Hypertension - wel l controlled - continue with current medications, continue with no added salt diet. Pt has been encouraged to exercise daily. The pt has been advised to call the office if there are any acute concerns about change in blood pressure readings at home. Edema - pt has been advised to elevate legs to prevent dependent edema, compression has been recommended to help to naturally decrease peripheral edema. Diuretic use has been discussed and pt has been instructed in appropriate use of such medication as necessary to further attempt to reduce peripheral edema.
--- OUTSIDE RECORDS SUMMARY | 2020-01-16 22:28 | XMS REPORT | CCD ---
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 Name Role Phone PP Unavailable CCM Unavailable Summary Purpose Interface Exchange Insurance Providers Payer name Policy type / Coverage type Covered alliance party ID Effective Begin Date Effective End Date WPS Medicare Part B Medicare Part B [id number] 2017 Unknown [employer] [place] Medicare Part B [id number] 2017 Unknown Family history Father Diagnosis Age At Onset Hyperlipidemia Unknown Heart Attack Unknown Mother Diagnosis Age At Onset Arthritis Unknown Social History Social History Element Codes Description Effective Dates Marital status Unknown M arried Nathan 09/30/2016 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 Number of children Unknown 3 01/22/[address]: 855646073 Never smoker 01/22/[address]: 957709082 Never drinks alcohol 01/22/2015 Allergies, Adverse Reactions, Alerts Substance Reaction Codes Entered Date Inactivated Date Status * NO KNOWN DRUG ORIN RGIES Unknown 01/22/2015 No Inactive Date Active Past Medical History Illness Codes Condition Status Onset Date Resolved Date Mixed hyperlipidemia ICD-9: 272.4 ICD-10: E78.2 Active 06/09/2015 Unknown Hypothyroidism, unsp ecified ICD-9: 244.9 ICD-10: E03.9 Active 05/27/2017 Unknown 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 ICD-10: [...] 780.79 ICD-10: R53.83 Active 08/20/2016 Unknown Other [facility] (cur rent[facility] drug therapy ICD-9: V58.69 ICD-10: [...] ecified ICD-9: 244.9 ICD-10: E03.9 05/27/2017 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 ICD-10: [...] ICD-9: 780.79 ICD-10: R53.83 08/20/2016 Active Other [facility] (cur rent) drug therapy ICD-9: V58.69 ICD-10: [...] Date Stop Date Sta tus Fill Instructions Carafate 1 gram tablet RxNorm: 483405 TAKE ONE TABLET BY MOUTH BEFORE MEALS AN D AT BEDTIME 03/02/2019 03/27/2019 Active Plavix 75 mg tablet RxNorm: 955078 TAKE ONE TABLET BY MOUTH DAILY 02/24/2019 05/18/2020 Ac tive potassium chloride E R 20 mEq tablet,extended release RxNorm: 079892 Tablet(s) TAKE ONE TABLET BY MOUTH DAILY 02/13/2019 05/13/2019 Active Coumadin 4 mg tablet RxNorm: 309237 TAKE TWO TABLETS BY MOUTH DAILY 02/13/2019 08/11/2019 Ac tive omeprazole 20 mg cap sean,delayed release RxNorm: 761701 TAKE ONE CAPSULE BY M OUTH TWICE A DAY 02/03/2019 07/26/2020 Active sodium bicarbonate 6 50 mg tablet RxNorm: 894658 TAKE TWO TABLETS BY M OUTH TWICE A DAY 02/03/2019 07/02/2019 Ac tive potassium chloride E R 20 mEq tablet,extended release RxNorm: 846784 TAKE ONE TABLET BY MOUTH DAILY 01/19/2019 02/12/2019 Inactive Carafate 1 gram tablet RxNorm: 061878 TAKE ONE TABLET BY MOUTH BEFORE MEALS AN D AT BEDTIME 12/30/2018 02/19/2019 Inactive Carafate 1 gram tablet RxNorm: 670604 TAKE ONE TABLET BY MOUTH BEFORE MEALS AN D AT BEDTIME 12/12/2018 12/29/2018 Inactive mupirocin 2 % topica l ointment RxNorm: 749821 1 Application TOP TID 12/08/2018 12/17/2018 Inactive mupirocin 2 % topica l ointment RxNorm: 486769 1 Application TOP TID 12/08/2018 12/07/2018 Inactive allopurinol 300 mg t ablet RxNorm: 822499 TAKE ONE TABLET BY MO [facility] DAILY 11/22/2018 03/21/2019 Ac tive clonazepam 0.5 mg ta blet RxNorm: 919318 1 Tablet(s) PO BID 11/16/2018 04/14/2019 Active Carafate 1 gram tablet RxNorm: 014249 TAKE ONE TABLET BY MOUTH BEFORE MEALS AN D AT BEDTIME 11/15/2018 12/10/2018 Inactive atenolol 100 mg tablet RxNorm: 852806 TAKE ONE TABLET BY MOUTH DAILY 10/24/2018 05/21/2019 Ac tive potassium chloride E R 20 mEq tablet,extended release RxNorm: 647328 2 Tablet(s) PO daily 10/18/2018 02/13/2019 Inactive potassium chloride E R 20 mEq tablet,extended release RxNorm: 843909 1 Tablet(s) PO daily 10/03/2018 10/17/2018 Inactive Carafate 1 gram tablet RxNorm: 483655 TAKE ONE TABLET BY MOUTH BEFORE MEALS AN D AT BEDTIME 09/26/2018 11/14/2018 Inactive prednisone 10 mg tablet RxNorm: 618850 Tablet(s) PO 09/02/2018 No Stop Date Active 60,60,50,50,40,40,30,30,20,20,10,10 Synthroid 125 mcg ta blet RxNorm: 899005 1 Tablet(s) PO daily 09/02/2018 08/27/2019 Active potassium chloride E R 20 mEq tablet,extended release RxNorm: 754374 1 Tablet(s) PO daily 09/02/2018 09/01/2018 Inactive potassium chloride E R 20 mEq tablet,extended release RxNorm: 765167 1 Tablet(s) PO daily 09/02/2018 10/02/2018 Inactive Plavix 75 mg tablet RxNorm: 115489 TAKE ONE TABLET BY MOUTH DAILY 09/02/2018 02/23/2019 In active Synthroid 125 mcg ta blet RxNorm: 481878 1 Tablet(s) PO daily 09/02/2018 09/01/2018 Inactive Keflex 500 mg capsule RxNorm: 194613 1 Capsule(s) PO TID 09/02/2018 09/08/2018 Inactive Kenalog 40 mg/mL maxine pension for injection RxNorm: 0925473 Milliliter(s) Inj 09/02/2018 09/02/2018 In active Lipitor 40 mg tablet RxNorm: 955529 TAKE ONE TABLET BY MOUTH DAILY 07/29/2018 07/23/2019 Ac tive Coumadin 1 mg tablet RxNorm: 594593 TAKE ONE TABLET BY MOUTH DAILY 07/29/2018 10/26/2018 In active Carafate 1 gram tablet RxNorm: 105756 TAKE ONE TABLET BY MOUTH BEFORE MEALS AN D AT BEDTIME 07/28/2018 09/17/2018 Inactive Coumadin 4 mg tablet RxNorm: 927090 2 Tablet(s) daily 07/11/2018 02/05/2019 Inactive Gene andre For:COUMADIN 4MG 07/22/2017 8:58:26 AM Coumadin 5 mg tablet RxNorm: 971940 Tablet(s) TAKE 1 TABLET BY MOUTH DIRE CTED 07/08/2018 01/03/2019 Inactive Generic For:COUMADIN 5MG TAB 03/21/2018 9:13:00 AM Coumadin 4 mg tablet RxNorm: 390435 Tablet(s) TAKE 1 TABLET BY MOUTH THREE T IMES PER WEEK (WEDNESDAY, WEDNESDAY AND WEDNESDAY) 07/08/2018 07/10/2018 Inactive Gene andre For:COUMADIN 4MG 07/22/2017 8:58:26 AM Coumadin 1 mg tablet RxNorm: 467884 1 Tablet(s) PO daily 07/08/2018 08/06/2018 Inactive venlafaxine ER 75 mg capsule,extended release 24 hr RxNorm: 925854 Capsule(s) TAKE 1 CAPSULE BY MOUTH ONCE DAILY 06/23/2018 06/17/2019 Active Generic For:*EFFEXOR XR 75MG 06/19/2017 12:23:45 PM sodium bicarbonate 6 50 mg tablet RxNorm: 145519 Tablet(s) TAKE 2 TABL ETS BY MOUTH TWICE DAILY 06/23/2018 12/19/2018 Inactive 12/20/2017 9:10:59 AM Coumadin 1 mg tablet RxNorm: 865594 1 Tablet(s) PO daily 06/17/2018 07/07/2018 Inactive Coumadin 1 mg tablet RxNorm: 001367 1 Tablet(s) PO daily 06/17/2018 06/16/2018 Inactive clonazepam 0.5 mg ta blet RxNorm: 747199 1 Tablet(s) PO BID 06/08/2018 11/03/2018 Inactive spironolactone 25 mg tablet RxNorm: 901734 TAKE 1 TABLET BY MOUT H EVERY DAY 05/18/2018 05/12/2019 Ac tive Generic For:*ALDACTONE 25MG 05/18/2018 8:57:50 AM Carafate 1 gram tablet RxNorm: 864890 TAKE ONE TABLET BY MOUTH BEFORE MEALS AN D AT BEDTIME 05/18/2018 07/12/2018 Inactive Generic For:CARAFATE 1GM 1 07/18/2017 8:38:28 AM Synthroid 137 mcg ta blet RxNorm: 378823 TAKE 1 TABLET BY MOUT H ONCE DAILY 05/18/2018 08/30/2018 In active Generic For:SYNTHROID 137MCG TAB 2017 8:57:54 AM allopurinol 300 mg t ablet RxNorm: 959695 TAKE 1 TABLET BY MOUT H ONCE DAILY. 04/18/2018 10/14/2018 In active Generic For:ZYLOPRIM 300 MG TABLET 03/22 9:13:47 AM Lasix 20 mg tablet RxNorm: 797067 TAKE ONE TABLET BY MOUTH DAILY 04/18/2018 08/15/2018 In active Generic For:LASIX 20MG 04/18/2018 9:13: 50 AM Carafate 1 gram tablet RxNorm: 818256 TAKE ONE TABLET BY MOUTH BEFORE MEALS AN D AT BEDTIME 04/18/2018 05/17/2018 Inactive Generic For:CARAFATE 1GM 1 9:32:51 AM Coumadin 5 mg tablet RxNorm: 890671 TAKE 1 TABLET BY MOUTH DIRECTED 03/21/2018 07/07/2018 In active Generic For:COUMADIN 5MG TAB 03/21/2018 9:13:00 AM Carafate 1 gram tablet RxNorm: 025958 TAKE ONE TABLET BY MOUTH BEFORE MEALS AN D AT BEDTIME 03/21/2018 04/17/2018 Inactive Generic For:CARAFATE 1GM 1 9:14:24 AM Carafate 1 gram tablet RxNorm: 928639 1 Tablet(s) PO AC & HS 02/17/2018 03/20/2018 Inactive atenolol 100 mg tablet RxNorm: 649233 1 Tablet(s) PO daily 02/04/2018 09/01/2018 Inactive atenolol 50 mg tablet RxNorm: 180637 1 Tablet(s) PO daily 02/03/2018 02/03/2018 Inactive omeprazole 20 mg cap sean,delayed release RxNorm: 174361 1 Capsule(s) BID 01/21/2018 01/15/2019 In active Generic For:PRILOSEC 20MG 07/22/2017 8:5 8:20 AM Carafate 1 gram tablet RxNorm: 990722 1 Tablet(s) PO AC & HS 01/21/2018 02/16/2018 Inactive Carafate 1 gram tablet RxNorm: 574188 1 Tablet(s) PO AC & HS 01/18/2018 01/20/2018 Inactive Carafate 1 gram tablet RxNorm: 792854 1 Tablet(s) PO AC & HS 01/18/2018 02/27/2018 Inactive Carafate 1 gram tablet RxNorm: 297400 1 Tablet(s) PO AC & HS TAKE ONE TABLET B Y MOUTH TWICE DAILY 01/18/2018 05/17/2018 Inactive Generic For:CARAFATE 1GM 0 12/20/2017 9:10:56 AM omeprazole 20 mg cap sean,delayed release RxNorm: 703384 Capsule(s) TAKE 1 CAP SEAN BY MOUTH EVERY DAY 01/17/2018 01/20/2018 Inactive Generic For:PRILOSEC 20MG 0 07/22/2017 8:58:20 AM omeprazole 20 mg cap sean,delayed release RxNorm: 198989 Capsule(s) TAKE 1 CAP SEAN BY MOUTH EVERY DAY 01/14/2018 01/16/2018 Inactive Generic For:PRILOSEC 20MG 07/22/2017 8:58:20 AM clonazepam 0.5 mg ta blet RxNorm: 912895 1 Tablet(s) PO BID 01/07/2018 06/05/2018 Inactive Plavix 75 mg tablet RxNorm: 573548 1 Tablet(s) PO daily 01/07/2018 07/05/2018 Inactive Carafate 1 gram tablet RxNorm: 869217 1 Tablet(s) PO AC & HS 01/04/2018 01/17/2018 Inactive Lasix 20 mg tablet RxNorm: 031687 TAKE ONE TABLET BY MOUTH DAILY 12/20/2017 04/17/2018 In active Generic For:LASIX 20MG 12/20/2017 9:11: 03 AM sodium bicarbonate 6 50 mg tablet RxNorm: 226044 TAKE 2 TABLETS BY JAVON TH TWICE DAILY 12/20/2017 06/17/2018 In active 12/20/2017 9:10:59 AM Carafate 1 gram tablet RxNorm: 383268 TAKE ONE TABLET BY MOUTH TWICE DAILY 12/20/2017 01/17/2018 In active Generic For:CARAFATE 1GM 12/20/2017 9:1 0:56 AM Synthroid 137 mcg ta blet RxNorm: 384972 TAKE 1 TABLET BY MOUT H ONCE DAILY 11/19/2017 05/17/2018 In active Generic For:SYNTHROID 137MCG TAB 2017 8:58:04 AM Detrol LA 4 mg capsu le,extended release RxNorm: 017775 TAKE 1 CAPSULE BY JAVON TH ONCE DAILY 10/20/2017 04/13/2018 Inactive Generic For:DETROL LA 4MG C AP 10/20/2017 9:01:56 AM allopurinol 300 mg t ablet RxNorm: 323578 TAKE 1 TABLET BY MOUT H ONCE DAILY. 10/20/2017 04/17/2018 In active Generic For:ZYLOPRIM 300 MG TABLET 07/2017 9:01:59 AM Coumadin 5 mg tablet RxNorm: 758614 1 Tablet(s) PO UD 10/01/2017 03/20/2018 Inactive cyclobenzaprine 5 mg tablet RxNorm: 545356 1 Tablet(s) PO TID as needed myscle spasm 09/23/2017 10/12/2017 Inactive Lipitor 40 mg tablet RxNorm: 798751 TAKE 1 TABLET BY MOUTH ONCE DAILY 09/20/2017 07/28/2018 In active Generic For:LIPITOR 40MG 09/20/2017 8:5 6:04 AM atenolol 100 mg tablet RxNorm: 063854 1 Tablet(s) PO daily 08/30/2017 02/03/2018 Inactive atenolol 50 mg tablet RxNorm: 831022 1 Tablet(s) PO daily 08/30/2017 08/30/2017 Inactive Lovenox 30 mg/0.3 mL subcutaneous syringe RxNorm: 331578 0.3 Milliliter(s) SQ Q12H 08/24/2017 09/06/2017 In active Lasix 20 mg tablet RxNorm: 751787 TAKE ONE TABLET BY MOUTH DAILY 08/23/2017 12/19/2017 In active Generic For:LASIX 20MG 08/21/2017 9:04: 27 AM Synthroid 137 mcg ta blet RxNorm: 566165 TAKE 1 TABLET BY MOUT H ONCE DAILY 08/23/2017 11/18/2017 In active Generic For:SYNTHROID 137MCG TAB 2017 9:04:30 AM Lovenox 30 mg/0.3 mL subcutaneous syringe RxNorm: 521911 0.3 Milliliter(s) SQ Q12H 08/10/2017 08/23/2017 In active clonazepam 0.5 mg ta blet RxNorm: 494452 1 Tablet(s) PO BID 08/04/2017 12/30/2017 Inactive omeprazole 20 mg cap sean,delayed release RxNorm: 566386 TAKE 1 CAPSULE BY JAVON TH EVERY DAY 07/22/2017 01/13/2018 Inactive Generic For:PRILOSEC 20MG 07/22/2017 8: 58:20 AM Coumadin 4 mg tablet RxNorm: 461709 TAKE 1 TABLET BY MOUTH THREE TIMES PER W TABLE [place] (WEDNESDAY, WEDNESDAY AND WEDNESDAY) 07/22/2017 10/03/2018 Inactive Generic For:COUMADIN 4MG 07/22/2017 8:58:26 AM Coumadin 4 mg tablet RxNorm: 803082 TAKE 1 TABLET BY MOUTH THREE TIMES PER W TABLE [place] (WEDNESDAY, WEDNESDAY AND WEDNESDAY) 07/22/2017 02/16/2018 Inactive Generic For:COUMADIN 4MG 07/22/2017 8:58:26 AM sodium bicarbonate 6 50 mg tablet RxNorm: 925627 TAKE 2 TABLETS BY JAVON TH TWICE DAILY 06/22/2017 12/18/2017 In active 06/19/2017 12:23:30 PM venlafaxine ER 75 mg capsule,extended release 24 hr RxNorm: 049610 TAKE 1 CAPSULE BY MOUTH ONCE DAILY 06/22/2017 06/16/2018 Inactive Generic For:*EFFEXOR XR 75M G 06/19/2017 12:23:45 PM Coumadin 5 mg tablet RxNorm: 796151 1 Tablet(s) PO UD 06/01/2017 09/30/2017 Inactive Keflex 500 mg capsule RxNorm: 373259 1 Capsule(s) PO TID 05/27/2017 06/02/2017 Inactive Synthroid 137 mcg ta blet RxNorm: 950066 TAKE 1 TABLET BY MOUT H ONCE DAILY 05/24/2017 08/21/2017 In active Generic For:SYNTHROID 137MCG TAB 2016 8:55:59 AM Carafate 1 gram tablet RxNorm: 368081 TAKE ONE TABLET BY MOUTH TWICE DAILY 05/24/2017 12/19/2017 In active Generic For:CARAFATE 1GM 05/24/2017 8:5 5:54 AM spironolactone 25 mg tablet RxNorm: 986400 1 Tablet(s) PO daily 05/24/2017 05/17/2018 Inactive Detrol LA 4 mg capsu le,extended release RxNorm: 256637 1 Capsule(s) PO daily TAKE 1 CAPSULE BY MOUTH ONCE DAILY 05/10/2017 10/19/2017 Inactive Generic For:DETROL LA 4MG CAP 02/19/2017 2:36:00 PM Lasix 20 mg tablet RxNorm: 711991 TAKE ONE TABLET BY MOUTH DAILY 04/23/2017 08/20/2017 In active Generic For:LASIX 20MG 04/23/2017 9:04: 01 AM Coumadin 4 mg tablet RxNorm: 082621 TAKE 1 TABLET BY MOUTH THREE TIMES PER W TABLE [place] (WEDNESDAY, WEDNESDAY AND WEDNESDAY) 04/23/2017 07/21/2017 Inactive Generic For:COUMADIN 4MG 04/23/2017 9:04:05 AM allopurinol 300 mg t ablet RxNorm: 599700 TAKE 1 TABLET BY MOUT H ONCE DAILY. 04/23/2017 10/19/2017 In active Generic For:ZYLOPRIM 300 MG TABLET 08/2016 9:03:57 AM potassium chloride 2 0 mEq/15 mL oral liquid RxNorm: 534569 Milliliter(s) 30 Milliliter(s) (40mEq) PO daily 03/24/2017 07/21/2017 Inactive Lovenox 30 mg/0.3 mL subcutaneous syringe RxNorm: 477430 0.3 Milliliter(s) SQ Q12H 03/22/2017 03/26/2017 In active Lovenox 30 mg/0.3 mL subcutaneous syringe RxNorm: 510402 0.3 Milliliter(s) SQ Q12H 03/19/2017 03/20/2017 In active Lovenox 30 mg/0.3 mL subcutaneous syringe RxNorm: 029955 0.3 Milliliter(s) SQ Q12H 03/16/2017 03/18/2017 In active clonazepam 0.5 mg ta blet RxNorm: 118478 1 Tablet(s) PO BID 03/02/2017 10/03/2018 Inactive Lovenox 30 mg/0.3 mL subcutaneous syringe RxNorm: 954566 1 injection SQ BID do NOT take the night time dose the day before surgery, or the morning dose the day of surgery 03/01/2017 03/07/2017 Inactive Lovenox 30 mg/0.3 mL subcutaneous syringe RxNorm: 069047 1 injection SQ BID 03/01/2017 02/28/2017 In active Detrol LA 4 mg capsu le,extended release RxNorm: 508984 TAKE 1 CAPSULE BY JAVON TH ONCE DAILY 02/19/2017 05/09/2017 Inactive Generic For:DETROL LA 4MG C AP 02/19/2017 2:36:00 PM hydrocodone 5 mg-humberto taminophen 325 mg tablet RxNorm: 015983 1-2 Tablet(s) PO Q6 P RN 02/04/2017 No Stop Date Active Zetia 10 mg tablet RxNorm: 738950 TAKE 1 TABLET BY MOUTH DAILY 01/25/2017 04/13/2018 Inactive 01/23/2017 9:03:48 AM omeprazole 20 mg cap sean,delayed release RxNorm: 507809 TAKE 1 CAPSULE BY JAVON TH EVERY DAY 01/25/2017 07/21/2017 Inactive Generic For:PRILOSEC 20MG 01/23/2017 9: 03:45 AM Coumadin 4 mg tablet RxNorm: 035784 TAKE 1 TABLET BY MOUTH THREE TIMES PER W TABLE [place] (WEDNESDAY, WEDNESDAY AND WEDNESDAY) 01/25/2017 04/22/2017 Inactive Generic For:COUMADIN 4MG 01/23/2017 9:03:51 AM sodium bicarbonate 6 50 mg tablet RxNorm: 798409 TAKE 2 TABLETS BY JAVON TH TWICE DAILY 12/24/2016 06/21/2017 In active 12/24/2016 9:09:27 AM Lasix 20 mg tablet RxNorm: 777414 1 Tablet(s) PO daily 12/24/2016 04/22/2017 Inactive Synthroid 137 mcg ta blet RxNorm: 237709 TAKE 1 TABLET BY MOUT H ONCE DAILY 11/24/2016 05/22/2017 In active Generic For:SYNTHROID 137MCG TAB 2016 9:04:37 AM Coumadin 4 mg tablet RxNorm: 812514 TAKE 1 TABLET BY MOUTH THREE TIMES PER W TABLE [place] (WEDNESDAY, WEDNESDAY AND WEDNESDAY) 11/24/2016 01/22/2017 Inactive Generic For:COUMADIN 4MG 11/24/2016 9:04:41 AM hydrocodone 5 mg-humberto taminophen 325 mg tablet RxNorm: 581259 1-2 Tablet(s) PO Q6 P RN 11/17/2016 02/03/2017 In active Carafate 1 gram tablet RxNorm: 912614 TAKE ONE TABLET BY MOUTH TWICE DAILY 10/27/2016 05/23/2017 In active Generic For:CARAFATE 1GM 10/26/2016 8:3 9:42 AM allopurinol 300 mg t ablet RxNorm: 142646 Tablet(s) TAKE 1 TABL ET BY MOUTH ONCE DAILY. 10/26/2016 04/22/2017 Inactive Lipitor 40 mg tablet RxNorm: 198146 1 Tablet(s) PO daily 09/25/2016 09/19/2017 Inactive Coumadin 4 mg tablet RxNorm: 951037 TAKE 1 TABLET BY MOUTH THREE TIMES PER W TABLE [place] (WEDNESDAY, WEDNESDAY AND WEDNESDAY) 09/25/2016 11/23/2016 Inactive Generic For:COUMADIN 4MG 09/25/2016 8:55:58 AM Zetia 10 mg tablet RxNorm: 533529 1 Tablet(s) PO daily 09/25/2016 01/22/2017 Inactive gave 1 month of samples clonazepam 0.5 mg ta blet RxNorm: 272995 1 Tablet(s) PO BID 09/21/2016 10/03/2018 Inactive Lasix 20 mg tablet RxNorm: 359420 1 Tablet(s) PO daily 09/15/2016 12/23/2016 Inactive potassium chloride 2 0 mEq/15 mL oral liquid RxNorm: 303578 Milliliter(s) 30 Milliliter(s) (40mEq) PO daily 09/15/2016 01/12/2017 Inactive Lasix 20 mg tablet RxNorm: 003442 2 Tablet(s) PO daily 09/10/2016 09/12/2016 Inactive Lasix 20 mg tablet RxNorm: 762073 1 Tablet(s) PO daily 08/28/2016 08/30/2016 Inactive Lasix 20 mg tablet RxNorm: 842719 1 Tablet(s) PO daily 08/20/2016 08/22/2016 Inactive Detrol LA 4 mg capsu le,extended release RxNorm: 272827 TAKE 1 CAPSULE BY JAVON TH ONCE DAILY 07/27/2016 02/18/2017 Inactive Generic For:DETROL LA 4MG C AP 07/27/2016 9:08:27 AM Coumadin 4 mg tablet RxNorm: 448491 1 Tablet(s) PO 3 x week wed and sun 07/27/2016 09/24/2016 In active omeprazole 20 mg cap sean,delayed release RxNorm: 355251 Capsule(s) PO TAKE 1 CAPSULE BY MOUTH ONCE DAILY 07/27/2016 01/22/2017 Inactive venlafaxine ER 75 mg capsule,extended release 24 hr RxNorm: 586604 1 Capsule(s) PO daily 06/29/2016 06/21/2017 Inactive sodium bicarbonate 6 50 mg tablet RxNorm: 941856 [facility] 06/29/2016 12/23/2016 In active 06/27/2016 9:05:39 AM Coumadin 4 mg tablet RxNorm: 744726 1 Tablet(s) PO 3 x week wed and sun 06/09/2016 06/08/2016 In active Coumadin 4 mg tablet RxNorm: 292783 1 Tablet(s) PO 3 x week e and sun 06/09/2016 07/26/2016 In active Zetia 10 mg tablet RxNorm: 495795 1 Tablet(s) PO daily 06/09/2016 06/08/2016 Inactive gave 1 month of samples Zetia 10 mg tablet RxNorm: 846485 1 Tablet(s) PO daily 06/09/2016 09/24/2016 Inactive gave 1 month of samples Effexor 75 mg tablet RxNorm: 554640 1 Tablet(s) PO daily 06/08/2016 06/28/2016 Inactive spironolactone 25 mg tablet RxNorm: 668521 1 Tablet(s) PO daily 06/08/2016 05/23/2017 Inactive Synthroid 137 mcg ta blet RxNorm: 187413 1 Tablet(s) PO daily 05/07/2016 11/02/2016 Inactive allopurinol 300 mg t ablet RxNorm: 388568 Tablet(s) TAKE 1 TABL ET BY MOUTH ONCE DAILY. 04/28/2016 10/24/2016 Inactive clonazepam 0.5 mg ta blet RxNorm: 976284 1 Tablet(s) PO BID 04/20/2016 10/03/2018 Inactive Flonase Allergy Reli ef 50 mcg/actuation nasal spray,suspension RxNorm: 3611263 1 [place] NASAL BID 04/02/2016 No Stop Date Active Zithromax Z-Thomas 250 mg tablet RxNorm: 980552 Tablet(s) PO 04/02/2016 08/27/2016 Inactive cetirizine 10 mg tablet RxNorm: 6194697 1 Tablet(s) PO daily 04/02/2016 05/01/2016 Inactive Carafate 1 gram tablet RxNorm: 662719 Tablet(s) TAKE 1 TABLET TWICE A DAY FOR 30 DAYS 03/30/2016 10/25/2016 Inactive Generic For:CARAFATE 1GM 02/08/2015 12:3 6:39 PM Plavix 75 mg tablet RxNorm: 179059 1 Tablet(s) PO daily 03/11/2016 09/06/2016 Inactive sodium bicarbonate 6 50 mg tablet RxNorm: 310029 Tablet(s) 2 Tablet(s) PO BID 02/28/2016 06/26/2016 In active omeprazole 20 mg cap sean,delayed release RxNorm: 050766 Capsule(s) PO TAKE 1 CAPSULE BY MOUTH ONCE DAILY 01/31/2016 07/26/2016 Inactive Fish Oil 1,000 mg ca psule RxNorm: 1 Capsule(s) PO BID 01/14/2016 No Stop Date Active Synthroid 137 mcg ta blet RxNorm: 399396 1 Tablet(s) PO daily 01/14/2016 05/06/2016 Inactive Detrol LA 4 mg capsu le,extended release RxNorm: 005012 TAKE 1 CAPSULE BY JAVON ONCE DAILY 12/30/2015 07/26/2016 Inactive Generic For:DETROL LA 4MG C AP 12/30/2015 9:11:01 AM potassium chloride 2 0 mEq/15 mL oral liquid RxNorm: 983408 Milliliter(s) 30 Milliliter(s) (40mEq) PO daily 12/02/2015 03/30/2016 Inactive sodium bicarbonate 6 50 mg tablet RxNorm: 010958 Tablet(s) 2 Tablet(s) PO BID 10/31/2015 02/27/2016 In active Lipitor 40 mg tablet RxNorm: 734866 1 Tablet(s) PO daily 10/09/2015 09/24/2016 Inactive sodium bicarbonate 6 50 mg tablet RxNorm: 189754 2 Tablet(s) PO BID 10/01/2015 10/30/2015 Inactive allopurinol 300 mg t ablet RxNorm: 598169 TAKE 1 TABLET BY MOUT H ONCE DAILY. 10/01/2015 04/27/2016 In active Generic For:ZYLOPRIM 300 MG TABLET 09/19 9:21:15 AM clonazepam 0.5 mg ta blet RxNorm: 812352 1 Tablet(s) PO BID 09/30/2015 04/19/2016 Inactive Coumadin 5 mg tablet RxNorm: 586759 1 Tablet(s) PO daily 09/27/2015 05/31/2017 Inactive Generic For:COUMADIN 5MG TAB N O T I C E PRESCRIPTION PREVIOUSLY AUTHORIZED BY DOCTOR:BOBBY ZULETA Synthroid 125 mcg ta blet RxNorm: 107101 1 Tablet(s) PO daily 09/27/2015 09/26/2015 Inactive Synthroid 125 mcg ta blet RxNorm: 992648 1 Tablet(s) PO daily 09/27/2015 01/13/2016 Inactive Carafate 1 gram tablet RxNorm: 464201 Tablet(s) TAKE 1 TABLET TWICE A DAY FOR 30 DAYS 09/02/2015 03/29/2016 Inactive Generic For:CARAFATE 1GM 02/08/2015 12:3 6:39 PM sodium bicarbonate 6 50 mg tablet RxNorm: 120476 2 Tablet(s) PO BID 09/02/2015 09/30/2015 Inactive Prilosec 20 mg capsu le,delayed release RxNorm: 941846 TAKE 1 CAPSULE BY JAVON TH ONCE DAILY 08/02/2015 01/28/2016 Inactive Generic For:PRILOSEC 20MG 08/02/2015 10:03:09 AM N O T I C E PRESCRIPTION PREVIOUSLY AUTHORIZED BY DOCTOR:BOBBY ZULETA Zyrtec 10 mg capsule RxNorm: 0928301 1 Capsule(s) PO daily 07/15/2015 08/13/2015 Inactive Keflex 500 mg capsule RxNorm: 482267 1 Capsule(s) PO TID 07/15/2015 07/21/2015 Inactive cetirizine 10 mg cap sean RxNorm: 8713591 1 Capsule(s) PO daily 07/15/2015 08/13/2015 Inactive hydrocodone 5 mg-humberto taminophen 325 mg tablet RxNorm: 950389 1-2 Tablet(s) PO Q6 P RN 06/10/2015 11/16/2016 In active sodium bicarbonate 6 50 mg tablet RxNorm: 827578 2 Tablet(s) PO BID 06/03/2015 08/31/2015 Inactive Detrol LA 4 mg capsu le,extended release RxNorm: 793536 TAKE 1 CAPSULE BY JAVON TH ONCE DAILY 06/03/2015 12/29/2015 Inactive Generic For:DETROL LA 4MG C AP N O T I C E PRESCRIPTION PREVIOUSLY AUTHORIZED BY DOCTOR:BOBBY ZULETA atenolol 50 mg tablet RxNorm: 926156 1 Tablet(s) PO daily TAKE 1 TABLET BY MO UTH DAILY 05/07/2015 08/23/2017 Inactive Generic For:TENORMIN 50MG 05/04/2015 9:07:22 AM spironolactone 25 mg tablet RxNorm: 856103 1 Tablet(s) PO daily 05/06/2015 06/07/2016 Inactive venlafaxine ER 75 mg capsule,extended release 24 hr RxNorm: 827246 1 Capsule(s) PO daily 05/04/2015 06/28/2016 Inactive atenolol 50 mg tablet RxNorm: 418221 TAKE 1 TABLET BY MOUTH DAILY 05/04/2015 05/06/2015 Inactive Generic For:TENORMIN 50MG 05/04/2015 9: 07:22 AM Synthroid 150 mcg ta blet RxNorm: 488572 TAKE 1 TABLET BY MOUT H ONCE DAILY. 04/05/2015 09/26/2015 In active Generic For:SYNTHROID 150MCG TAB 2014 4:45:40 PM N O T I C E PRESCRIPTION PREVIOUSLY AUTHORIZED BY DOCTOR:BOBBY ZULETA Effexor 75 mg tablet RxNorm: 254015 1 Tablet(s) PO daily 04/05/2015 07/03/2015 Inactive Coumadin 5 mg tablet RxNorm: 922679 TAKE 1 AND 1/2 TABLETS BY MOUTH ONCE MYRANDA LY 04/04/2015 09/26/2015 In active Generic For:COUMADIN 5MG TAB N O T I C E PRESCRIPTION PREVIOUSLY AUTHORIZED BY DOCTOR:BOBBY ZULETA clonazepam 0.5 mg ta blet RxNorm: 726209 1 Tablet(s) PO BID 03/13/2015 11/05/2015 Inactive sodium bicarbonate 6 50 mg tablet RxNorm: 468597 2 Tablet(s) PO BID 03/08/2015 06/02/2015 Inactive allopurinol 300 mg t ablet RxNorm: 149424 TAKE 1 TABLET BY MOUT H ONCE DAILY. 03/05/2015 09/30/2015 In active N O T I C E PRESCRIPTION PREVIOUSLY A UTHORIZED BY DOCTOR:BOBBY ZULETA Plavix 75 mg tablet RxNorm: 107575 1 Tablet(s) PO daily 02/12/2015 09/09/2015 Inactive clonazepam 0.5 mg ta blet RxNorm: 359644 1 Tablet(s) PO BID 02/11/2015 03/11/2015 Inactive Carafate 1 gram tablet RxNorm: 220829 TAKE 1 TABLET TWICE A DAY FOR 30 DAYS 02/08/2015 02/07/2015 In active Generic For:CARAFATE 1GM 02/08/2015 12:3 6:39 PM Carafate 1 gram tablet RxNorm: 060193 Tablet(s) TAKE 1 TABLET TWICE A DAY FOR 30 DAYS 02/08/2015 09/01/2015 Inactive Generic For:CARAFATE 1GM 02/08/2015 12:3 6:39 PM potassium chloride 2 0 mEq/15 mL oral liquid RxNorm: 189619 30 Milliliter(s) (40m Eq) PO daily 02/05/2015 12/01/2015 Inactive atenolol 50 mg tablet RxNorm: 489602 1 Tablet(s) PO daily 02/04/2015 05/03/2015 Inactive [SAVINGS FOR NON-COVERED DRUGS -- BIN:00 [id number], PCN: ASPROD1, Group: XXXXX, ID# XXXXXXX, Questions: . THIS IS NOT INSURANCE.] potassium chloride 2 0 mEq/15 mL oral liquid RxNorm: 913758 30 Milliliter(s) (40m Eq) PO daily 01/08/2015 02/04/2015 Inactive potassium chloride 2 0 mEq/15 mL oral liquid RxNorm: 090356 30 Milliliter(s) (40m Eq) PO daily 12/07/2014 01/07/2015 Inactive atenolol 50 mg tablet RxNorm: 641720 1 Tablet(s) PO daily 11/09/2014 11/08/2014 Inactive atenolol 50 mg tablet RxNorm: 775896 1 Tablet(s) PO daily 11/09/2014 02/03/2015 Inactive [SAVINGS FOR NON-COVERED DRUGS -- BIN:00 3585, PCN: ASPROD1, Group: XXXXX, ID# XXXXXXX, Questions: . THIS IS NOT INSURANCE.] Voltaren 1 % topical gel RxNorm: 994790 TOP No St art Date Active verapamil ER (HS) 24 0 mg tablet,extended release 24 hr RxNorm: 389910 1 Tablet(s) PO daily No Start Date Active aspirin 81 mg tablet RxNorm: 574159 1 Tablet(s) PO daily No Start Date Active Zofran 4 mg tablet RxNorm: 218505 1 Tablet(s) PO PRN No Start Date Active B12 1000 mcg RxNorm: 1 Tablet(s) PO daily No Start Date Active magnesium oxide 400 mg capsule RxNorm: 271237 2 Capsule(s) PO BID No Start Date Active Synthroid 150 mcg ta blet RxNorm: 410218 1 Tablet(s) PO daily No Start Date 04/04/2015 Inactive Coumadin 5 mg tablet RxNorm: 045952 1 Tablet(s) PO daily No Start Date 04/03/2015 Inactive cranberry 1,000 mg c apsule RxNorm: 485198 1 Capsule(s) PO daily No Start Date 04/13/2018 Inactive allopurinol 300 mg t ablet RxNorm: 659369 1 Tablet(s) PO daily No Start Date 03/04/2015 Inactive Prilosec 20 mg capsu le,delayed release RxNorm: 452274 1 Capsule(s) PO PRN No Start Date 08/01/2015 Inactive potassium chloride 2 0 mEq/15 mL oral liquid RxNorm: 393897 30 Milliliter(s) (40m Eq) PO daily No Start Date 12/06/2014 Inactive atenolol 50 mg tablet RxNorm: 371972 1 Tablet(s) PO daily No Start Date 08/29/2017 Inactive Lipitor 40 mg tablet RxNorm: 389432 1 Tablet(s) PO daily No Start Date 09/19/2017 Inactive Effexor 75 mg tablet RxNorm: 091168 1 Tablet(s) PO daily No Start Date 04/04/2015 Inactive Carafate 1 gram tablet RxNorm: 642267 1 Tablet(s) PO BID No Start Date 02/07/2015 Inactive clonazepam 0.5 mg ta blet RxNorm: 170995 1 Tablet(s) PO BID No Start Date 02/10/2015 Inactive Plavix 75 mg tablet RxNorm: 687362 1 Tablet(s) PO daily No Start Date 02/11/2015 Inactive sodium bicarbonate 6 50 mg tablet RxNorm: 054238 2 Tablet(s) PO BID No Start Date 09/01/2015 Inactive Lovenox 30 mg/0.3 mL subcutaneous syringe RxNorm: 555836 0.3 Milliliter(s) SQ Q12H No Start Date 03/15/2017 Inactive Fish Oil 1,000 mg ca psule RxNorm: 1 Capsule(s) PO daily No Start Date 01/13/2016 Inactive Detrol LA 4 mg capsu le,extended release RxNorm: 542758 1 Capsule(s) PO daily No Start Date 06/02/2015 Inactive Medication Administered Medication Codes Instruc tions Start Date Status Kenalog 40 mg/mL suspension for injection RxNorm: 8246686 Milliliter 09/02/2018 No longer Active Immunizations Vaccine Codes Date Status SHINGARIX CVX: 121 03/23 completed Assessments Condition Codes Effectiv e Dates Mixed hyperlipidemia ICD-10: E78.2 ICD-9: 272.4 10/05/2018 Other acute sinusitis ICD-10: J01.80 ICD-9: 461.8 09/02/2018 Other allergic rhinitis ICD-10: J30. 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 ICD-9: [...] fatigue ICD-10: R53.83 ICD-9: 780.79 08/20/2016 Other penitentiary (current) drug therapy ICD-10: Z79.899 ICD-9: V58.69 [...] Code Item Item Code Result Date Pt Wmr4252 PT 27.4 seconds 01/27/2019 Pt Spi7886 INR 2.6 01/27/2019 Pt Akw4492 Low Intensity - 1.5-2.0 01/27/2019 Pt Vtc8596 Mod intensity - 2.0-3.0 01/27/2019 Pt Jwg1939 Hi intensity - 3.0-4.0 01/27/2019 Pt Pah3069 PT 21.8 seconds 12/15/2018 Pt Bfk7677 INR 2.0 12/15/2018 Pt Qkl4345 Low Intensity - 1.5-2.0 12/15/2018 Pt Mlr4228 Mod intensity - 2.0-3.0 12/15/2018 Pt Vba5047 Hi intensity - 3.0-4.0 12/15/2018 Pt Atp4585 PT 24.4 seconds 12/09/2018 Pt Svr9041 INR 2.2 12/09/2018 Pt Zws5667 Low Intensity - 1.5-2.0 12/09/2018 Pt Rld8886 Mod intensity - 2.0-3.0 12/09/2018 Pt Qvc0687 Hi intensity - 3.0-4.0 12/09/2018 Pt Nvl0182 PT 35.0 seconds 12/01/2018 Pt Wxg5470 INR 3.5 12/01/2018 Pt Olg4430 Low Intensity - 1.5-2.0 12/01/2018 Pt Ojv2601 Mod intensity - 2.0-3.0 12/01/2018 Pt Hjo7218 Hi intensity - 3.0-4.0 12/01/2018 Pt Hfh0325 PT 26.3 seconds 10/13/2018 Pt Vxo0442 INR 2.5 10/13/2018 Pt Csp7446 Low Intensity - 1.5-2.0 10/13/2018 Pt Vui0706 Mod intensity - 2.0-3.0 10/13/2018 Pt Wgc9090 Hi intensity - 3.0-4.0 10/13/2018 Lipid Ord30 CHOL 180 mg/dL 10/07/2018 Lipid Ord30 HDL 74.0 mg/dl 10/07/2018 Lipid Ord30 TRIG 111 mg/dL 10/07/2018 Lipid Ord30 LDL 84 mg/dL 10/07/2018 Lipid Ord30 C/HDL 2.4 Ratio 10/07/2018 Pt Hta3800 PT 38.1 seconds 10/07/2018 Pt Rqw8439 INR 3.9 10/07/2018 Pt Qvu9702 Low Intensity - 1.5-2.0 10/07/2018 Pt Hhy5262 Mod intensity - 2.0-3.0 10/07/2018 Pt Tpr3176 Hi intensity - 3.0-4.0 10/07/2018 Tsh Ord6 TSH (3rd IS) 0.43 uIU/mL 09/02/2018 Comp Metabolic Yog274 NA 136 mEq/L 09/02/2018 Comp Metabolic Hez208 K 4.1 mEq/L 09/02/2018 Comp Metabolic Pfw967 CL 103 mEq/L 09/02/2018 Comp Metabolic Ace122 CO2 20.0 mEq/L 09/02/2018 Comp Metabolic Lmt959 AN ION GAP 17 09/02/2018 Comp Metabolic Lee661 GL UCOSE 124 mg/dL 09/02/2018 Comp Metabolic Bxo348 Cr eat 1.0 mg/dL 09/02/2018 Comp Metabolic Qpx601 eG FR 57 ml/min/1.73m2 09/02 Comp Metabolic Ymz809 BUN 24 mg/dL 09/02/2018 Comp Metabolic Koa245 B/ C Ratio 23.8 Ratio 09/02/2018 Comp Metabolic Nlv144 CA LCIUM 9.5 mg/dL 09/02/2018 Comp Metabolic Qln665 AL K PHOS 64 U/L 09/02/2018 Comp Metabolic Rju804 T(SGOT) 24 U/L 09/02/2018 Comp Metabolic Jxs615 AL T(SGPT) 23 U/L 09/02/2018 Comp Metabolic Spb395 BI LI T 0.5 mg/dL 09/02/2018 Comp Metabolic Dxz272 AL BUMIN 4.2 g/dL 09/02/2018 Comp Metabolic Eeu719 TP RO 7.4 g/dL 09/02/2018 Comp Metabolic Bfe175 GL OB 3.2 g/dL 09/02/2018 Comp Metabolic Alh405 A/ G Ratio 1.3 Ratio 09/02/2018 Comp Metabolic New870 Os mo 277 mOsmo 09/02/2018 Pt Wbg9381 PT 40.6 seconds 09/02/2018 Pt Pbl9162 INR 4.2 09/02/2018 Pt Yem7973 Low Intensity - 1.5-2.0 09/02/2018 Pt Oqr0800 Mod intensity - 2.0-3.0 09/02/2018 Pt Onf5804 Hi intensity - 3.0-4.0 09/02/2018 Free T4 Nmx134 FREE T4 1.51 ng/dL 09/02/2018 Magnesium Ord90 Mag 1.8 mg/dL 09/02/2018 Pt Pxh2772 PT 29.2 seconds 08/05/2018 Pt Mjm5960 INR 2.8 08/05/2018 Pt Gwp8328 Low Intensity - 1.5-2.0 08/05/2018 Pt Elx5796 Mod intensity - 2.0-3.0 08/05/2018 Pt Ari3257 Hi intensity - 3.0-4.0 08/05/2018 Pt Jbx3216 PT 30.2 seconds 07/25/2018 Pt Zat7149 INR 2.9 07/25/2018 Pt Vcn2004 Low Intensity - 1.5-2.0 07/25/2018 Pt Jtv5948 Mod intensity - 2.0-3.0 07/25/2018 Pt Rwu2357 Hi intensity - 3.0-4.0 07/25/2018 Pt Oyw5890 PT 25.2 seconds 07/19/2018 Pt Cdm9689 INR 2.3 07/19/2018 Pt Pbk6320 Low Intensity - 1.5-2.0 07/19/2018 Pt Sfm6349 Mod intensity - 2.0-3.0 07/19/2018 Pt Atp7660 Hi intensity - 3.0-4.0 07/19/2018 Pt Owd4167 PT 17.4 seconds 07/15/2018 Pt Tkj0450 INR 1.5 07/15/2018 Pt Yuy1681 Low Intensity - 1.5-2.0 07/15/2018 Pt Bva5634 Mod intensity - 2.0-3.0 07/15/2018 Pt Pgb6154 Hi intensity - 3.0-4.0 07/15/2018 Pt Vji6477 PT 17.8 seconds 07/08/2018 Pt Rmf6103 INR 1.5 07/08/2018 Pt Upk6870 Low Intensity - 1.5-2.0 07/08/2018 Pt Wch6296 Mod intensity - 2.0-3.0 07/08/2018 Pt Nok7807 Hi intensity - 3.0-4.0 07/08/2018 Pt Ztl1781 PT 19.2 seconds 07/01/2018 Pt Erp0207 INR 1.7 07/01/2018 Pt Rnq8763 Low Intensity - 1.5-2.0 07/01/2018 Pt Cpa8438 Mod intensity - 2.0-3.0 07/01/2018 Pt Enq5391 Hi intensity - 3.0-4.0 07/01/2018 Pt Qrm9680 PT 17.4 seconds 06/23/2018 Pt Qum5783 INR 1.5 06/23/2018 Pt Rfm6045 Low Intensity - 1.5-2.0 06/23/2018 Pt Npf6079 Mod intensity - 2.0-3.0 06/23/2018 Pt Iki5770 Hi intensity - 3.0-4.0 06/23/2018 Pt Qaz7024 PT 18.4 seconds 06/17/2018 Pt Aof7053 INR 1.6 06/17/2018 Pt Yhv7826 Low Intensity - 1.5-2.0 06/17/2018 Pt Dab8091 Mod intensity - 2.0-3.0 06/17/2018 Pt Dyn3641 Hi intensity - 3.0-4.0 06/17/2018 Sed Rate Ord21 ESR 5 mm/hr 06/08/2018 Cbc With Differential Ord2 WBC 5.45 K/ul 06/08/2018 Cbc With Differential Ord2 RBC 4.93 M/ul 06/08/2018 Cbc With Differential Ord2 HGB 15.0 g/dl 06/08/2018 Cbc With Differential Ord2 Neut% 65.1 % 06/08/2018 Cbc With Differential Ord2 HCT 43.8 % 06/08/2018 Cbc With Differential Ord2 Lymph% 22.0 % 06/08/2018 Cbc With Differential Ord2 MCV 88.8 fl 06/08/2018 Cbc With Differential Ord2 Letcher% 9.4 % 06/08/2018 Cbc With Differential Ord2 MCH 30.4 pg 06/08/2018 Cbc With Differential Ord2 Eos% 2.4 % 06/08/2018 Cbc With Differential Ord2 MCHC 34.2 pg 06/08/2018 Cbc With Differential Ord2 Baso% 1.1 % 06/08/2018 Cbc With Differential Ord2 PLT 197 K/ul 06/08/2018 Cbc With Differential Ord2 Neut ABS# 3.55 K/ul 06/08/2018 Cbc With Differential Ord2 RDW 14.8 % 06/08/2018 Cbc With Differential Ord2 Lymph ABS# 1.20 K/ul 06/08/2018 Cbc With Differential Ord2 Letcher ABS# 0.5 K/ul 06/08/2018 Cbc With Differential Ord2 Eos ABS# 0.1 K/ul 06/08/2018 Cbc With Differential Ord2 Baso ABS# 0.1 K/ul 06/08/2018 C-Reactive Protein Qnt Crqnt CRP 0.1 mg/dl 06/08/2018 Pt Lpl5293 PT 17.6 seconds 06/08/2018 Pt Pnl1543 INR 1.5 06/08/2018 Pt Qdb7859 Low Intensity - 1.5-2.0 06/08/2018 Pt Bqt7070 Mod intensity - 2.0-3.0 06/08/2018 Pt Clm7013 Hi intensity - 3.0-4.0 06/08/2018 Pt Oht3513 PT 16.8 seconds 05/10/2018 Pt Yca8761 INR 1.4 05/10/2018 Pt Evm1724 Low Intensity - 1.5-2.0 05/10/2018 Pt Kdh5505 Mod intensity - 2.0-3.0 05/10/2018 Pt Xqe1796 Hi intensity - 3.0-4.0 05/10/2018 Pt Tlp8596 PT 16.7 seconds 05/04/2018 Pt Sfu4333 INR 1.4 05/04/2018 Pt Zfw1701 Low Intensity - 1.5-2.0 05/04/2018 Pt Wtr2370 Mod intensity - 2.0-3.0 05/04/2018 Pt Yic4251 Hi intensity - 3.0-4.0 05/04/2018 Free T4 Ove208 FREE T4 1.09 ng/dL 04/14/2018 Tsh Ord6 TSH (3rd IS) 2.36 uIU/mL 04/14/2018 Pt Hnr6665 PT 20.3 seconds 04/14/2018 Pt Ooo8301 INR 1.8 04/14/2018 Pt Dvp7452 Low Intensity - 1.5-2.0 04/14/2018 Pt Wss9532 Mod intensity - 2.0-3.0 04/14/2018 Pt Fef6221 Hi intensity - 3.0-4.0 04/14/2018 Lipid Ord30 CHOL 149 mg/dL 04/14/2018 Lipid Ord30 HDL 49.0 mg/dl 04/14/2018 Lipid Ord30 TRIG 161 mg/dL 04/14/2018 Lipid Ord30 LDL 68 mg/dL 04/14/2018 Lipid Ord30 C/HDL 3.0 Ratio 04/14/2018 %Hba1C Apy917 % HbA1c 05826-7 5.9 % 04/14/2018 %Hba1C Ftm040 Gluc Ave 123 mg/dL 04/14/2018 Comp Metabolic Vaz324 NA 140 mEq/L 04/14/2018 Comp Metabolic Jce207 K 4.1 mEq/L 04/14/2018 Comp Metabolic Hnj315 CL 105 mEq/L 04/14/2018 Comp Metabolic Vjh023 CO2 28.0 mEq/L 04/14/2018 Comp Metabolic Wsf317 AN ION GAP 11 04/14/2018 Comp Metabolic Ivy371 GL UCOSE 112 mg/dL 04/14/2018 Comp Metabolic Kgu086 Cr eat 1.0 mg/dL 04/14/2018 Comp Metabolic Mtl056 eG FR 58 ml/min/1.73m2 04/14 Comp Metabolic Ktb704 BUN 20 mg/dL 04/14/2018 Comp Metabolic Qpz642 B/ C Ratio 20.2 Ratio 04/14/2018 Comp Metabolic Jte949 CA LCIUM 10.0 mg/dL 04/14/2018 Comp Metabolic Kje202 AL K PHOS 51 U/L 04/14/2018 Comp Metabolic Dvj103 T(SGOT) 24 U/L 04/14/2018 Comp Metabolic Dwq727 AL T(SGPT) 21 U/L 04/14/2018 Comp Metabolic Srf872 BI LI T 0.8 mg/dL 04/14/2018 Comp Metabolic Eko217 AL BUMIN 4.2 g/dL 04/14/2018 Comp Metabolic Lph693 TP RO 7.1 g/dL 04/14/2018 Comp Metabolic Ujv974 GL OB 2.9 g/dL 04/14/2018 Comp Metabolic Kcx653 A/ G Ratio 1.5 Ratio 04/14/2018 Comp Metabolic Feg111 Os mo 283 mOsmo 04/14/2018 Cbc With Differential Ord2 WBC 4.83 K/ul 04/14/2018 Cbc With Differential Ord2 RBC 4.86 M/ul 04/14/2018 Cbc With Differential Ord2 HGB 14.9 g/dl 04/14/2018 Cbc With Differential Ord2 HCT 43.9 % 04/14/2018 Cbc With Differential Ord2 Neut% 60.7 % 04/14/2018 Cbc With Differential Ord2 Lymph% 24.4 % 04/14/2018 Cbc With Differential Ord2 MCV 90.3 fl 04/14/2018 Cbc With Differential Ord2 Letcher% 10.6 % 04/14/2018 Cbc With Differential Ord2 MCH 30.7 pg 04/14/2018 Cbc With Differential Ord2 MCHC 33.9 pg 04/14/2018 Cbc With Differential Ord2 Eos% 3.1 % 04/14/2018 Cbc With Differential Ord2 PLT 189 K/ul 04/14/2018 Cbc With Differential Ord2 Baso% 1.2 % 04/14/2018 Cbc With Differential Ord2 RDW 14.6 % 04/14/2018 Cbc With Differential Ord2 Neut ABS# 2.93 K/ul 04/14/2018 Cbc With Differential Ord2 Lymph ABS# 1.18 K/ul 04/14/2018 Cbc With Differential Ord2 Letcher ABS# 0.5 K/ul 04/14/2018 Cbc With Differential Ord2 Eos ABS# 0.2 K/ul 04/14/2018 Cbc With Differential Ord2 Baso ABS# 0.1 K/ul 04/14/2018 Pt Oyx1781 PT 29.3 seconds 02/11/2018 Pt Hkl9036 INR 2.8 02/11/2018 Pt Gii4628 Low Intensity - 1.5-2.0 02/11/2018 Pt Yhc9809 Mod intensity - 2.0-3.0 02/11/2018 Pt Clq6573 Hi intensity - 3.0-4.0 02/11/2018 Comp Metabolic Klk062 NA 141 mEq/L 01/05/2018 Comp Metabolic Ktn633 K 3.7 mEq/L 01/05/2018 Comp Metabolic Kla358 CL 102 mEq/L 01/05/2018 Comp Metabolic Dsj297 CO2 29.0 mEq/L 01/05/2018 Comp Metabolic Fvr095 AN ION GAP 14 01/05/2018 Comp Metabolic Ygg471 GL UCOSE 136 mg/dL 01/05/2018 Comp Metabolic Gsi228 Cr eat 1.0 mg/dL 01/05/2018 Comp Metabolic Elp932 eG FR 61 ml/min/1.73m2 01/05 Comp Metabolic Dlu306 BUN 22 mg/dL 01/05/2018 Comp Metabolic Btt550 B/ C Ratio 22.9 Ratio 01/05/2018 Comp Metabolic Xua242 CA LCIUM 9.7 mg/dL 01/05/2018 Comp Metabolic Acn951 AL K PHOS 57 U/L 01/05/2018 Comp Metabolic Cdv523 T(SGOT) 21 U/L 01/05/2018 Comp Metabolic Ooh466 AL T(SGPT) 19 U/L 01/05/2018 Comp Metabolic Pyd127 BI LI T 0.9 mg/dL 01/05/2018 Comp Metabolic Ksz796 AL BUMIN 4.1 g/dL 01/05/2018 Comp Metabolic Igi483 TP RO 7.1 g/dL 01/05/2018 Comp Metabolic Myq696 GL OB 3.0 g/dL 01/05/2018 Comp Metabolic Vad932 A/ G Ratio 1.4 Ratio 01/05/2018 Comp Metabolic Eti019 Os mo 287 mOsmo 01/05/2018 Free T4 Hat469 FREE T4 1.05 ng/dL 01/05/2018 %Hba1C Dzt196 % HbA1c 44612-8 6.0 % 01/05/2018 %Hba1C Ytr953 Gluc Ave 126 mg/dL 01/05/2018 Cbc With Differential Ord2 WBC 4.66 K/ul 01/05/2018 Cbc With Differential Ord2 RBC 4.74 M/ul 01/05/2018 Cbc With Differential Ord2 HGB 14.5 g/dl 01/05/2018 Cbc With Differential Ord2 Neut% 56.7 % 01/05/2018 Cbc With Differential Ord2 HCT 43.2 % 01/05/2018 Cbc With Differential Ord2 MCV 91.1 fl 01/05/2018 Cbc With Differential Ord2 Lymph% 27.3 % 01/05/2018 Cbc With Differential Ord2 MCH 30.6 pg 01/05/2018 Cbc With Differential Ord2 Letcher% 10.5 % 01/05/2018 Cbc With Differential Ord2 [...] 1.27 K/ul 01/05/2018 Cbc With Differential Ord2 [place] ABS# 0.5 K/ul 01/05/2018 Cbc With Differential Ord2 Eos ABS# 0.2 K/ul 01/05/2018 Cbc With Differential Ord2 Baso ABS# 0.1 K/ul 01/05/2018 Pt Blu5746 PT 20.7 seconds 01/05/2018 Pt Bxr4991 INR 1.8 01/05/2018 Pt Yzo5119 Low Intensity - 1.5-2.0 01/05/2018 Pt Wqc0898 Mod intensity - 2.0-3.0 01/05/2018 Pt Hhv5922 Hi intensity - 3.0-4.0 01/05/2018 Tsh Ord6 TSH (3rd IS) 2.34 uIU/mL 01/05/2018 Lipid Ord30 CHOL 156 mg/dL 01/05/2018 Lipid Ord30 HDL 48.0 mg/dl 01/05/2018 Lipid Ord30 TRIG 207 mg/dL 01/05/2018 Lipid Ord30 LDL 67 mg/dL 01/05/2018 Lipid Ord30 C/HDL 3.3 Ratio 01/05/2018 Pt Izn1457 PT 28.3 seconds 11/26/2017 Pt Mau1268 INR 2.6 11/26/2017 Pt Hua2479 Low Intensity - 1.5-2.0 11/26/2017 Pt Zcd7379 Mod intensity - 2.0-3.0 11/26/2017 Pt Vwj5604 Hi intensity - 3.0-4.0 11/26/2017 Pt Oth0137 PT 36.5 seconds 11/19/2017 Pt Anh4413 INR 3.6 11/19/2017 Pt Duh8969 Low Intensity - 1.5-2.0 11/19/2017 Pt Aou7296 Mod intensity - 2.0-3.0 11/19/2017 Pt Iyw1797 Hi intensity - 3.0-4.0 11/19/2017 Pt Mhp6679 PT 22.9 seconds 10/15/2017 Pt Per5084 INR 2.0 10/15/2017 Pt Xwu4050 Low Intensity - 1.5-2.0 10/15/2017 Pt Ywz0512 Mod intensity - 2.0-3.0 10/15/2017 Pt Rls9959 Hi intensity - 3.0-4.0 10/15/2017 Pt Zwv6519 PT 25.9 seconds 10/01/2017 Pt Iox8021 INR 2.4 10/01/2017 Pt Gak2509 Low Intensity - 1.5-2.0 10/01/2017 Pt Rin8234 Mod intensity - 2.0-3.0 10/01/2017 Pt Qqz1300 Hi intensity - 3.0-4.0 10/01/2017 Pt Lml5798 PT 20.6 seconds 09/24/2017 Pt Ori9432 INR 1.8 09/24/2017 Pt Dat1218 Low Intensity - 1.5-2.0 09/24/2017 Pt Wpz2246 Mod intensity - 2.0-3.0 09/24/2017 Pt Qbu2114 Hi intensity - 3.0-4.0 09/24/2017 Pt Bhn3303 PT 21.0 seconds 09/15/2017 Pt Aba1588 INR 1.8 09/15/2017 Pt Vas0101 Low Intensity - 1.5-2.0 09/15/2017 Pt Nos9812 Mod intensity - 2.0-3.0 09/15/2017 Pt Mbs6403 Hi intensity - 3.0-4.0 09/15/2017 Pt Ftf7178 PT 19.0 seconds 09/03/2017 Pt Kcv3923 INR 1.6 09/03/2017 Pt Zsh1457 Low Intensity - 1.5-2.0 09/03/2017 Pt Unp3242 Mod intensity - 2.0-3.0 09/03/2017 Pt Ysv6144 Hi intensity - 3.0-4.0 09/03/2017 Pt Nai5044 PT 17.6 seconds 08/23/2017 Pt Epf2870 INR 1.5 08/23/2017 Pt Wmo9428 Low Intensity - 1.5-2.0 08/23/2017 Pt Gno3171 Mod intensity - 2.0-3.0 08/23/2017 Pt Ksq6655 Hi intensity - 3.0-4.0 08/23/2017 Pt Qgz7415 PT 12.7 seconds 08/20/2017 Pt Zam5387 INR 1.0 08/20/2017 Pt Qtd4208 Low Intensity - 1.5-2.0 08/20/2017 Pt Hgc0162 Mod intensity - 2.0-3.0 08/20/2017 Pt Ppp2913 Hi intensity - 3.0-4.0 08/20/2017 Pt Awu6635 PT 12.9 seconds 08/17/2017 Pt Bci3753 INR 1.0 08/17/2017 Pt Exm2930 Low Intensity - 1.5-2.0 08/17/2017 Pt Ebz6381 Mod intensity - 2.0-3.0 08/17/2017 Pt Lio8028 Hi intensity - 3.0-4.0 08/17/2017 Pt Ure2063 PT 18.5 seconds 08/10/2017 Pt Xku1323 INR 1.6 08/10/2017 Pt Zrv4416 Low Intensity - 1.5-2.0 08/10/2017 Pt Saz1031 Mod intensity - 2.0-3.0 08/10/2017 Pt Pzb4305 Hi intensity - 3.0-4.0 08/10/2017 Tsh Ord6 [...] 29.3 pg 05/27/2017 Cbc With Differential Ord2 Letcher% 8.1 % 05/27/2017 Cbc With Differential Ord2 MCHC 33.4 pg 05/27/2017 Cbc With Differential Ord2 Eos% 3.2 % 05/27/2017 Cbc With Differential Ord2 PLT 239 K/ul 05/27/2017 Cbc With Differential Ord2 Baso% 1.1 % 05/27/2017 Cbc With Differential Ord2 Neut ABS# 5.49 K/ul 05/27/2017 Cbc With Differential Ord2 RDW 14.4 % 05/27/2017 Cbc With Differential Ord2 Lymph ABS# 1.11 K/ul 05/27/2017 Cbc With Differential Ord2 Letcher ABS# 0.6 K/ul 05/27/2017 Cbc With Differential Ord2 Eos ABS# 0.2 K/ul 05/27/2017 Cbc With Differential Ord2 Baso ABS# 0.1 K/ul 05/27/2017 Pt Qnn6995 PT 28.2 seconds 05/27/2017 Pt Qrs3149 INR 2.6 05/27/2017 Pt Jji9200 Low Intensity - 1.5-2.0 05/27/2017 Pt Bma3239 Mod intensity - 2.0-3.0 05/27/2017 Pt Cva0001 Hi intensity - 3.0-4.0 05/27/2017 Lipid Ord30 CHOL 167 mg/dL 05/27/2017 Lipid Ord30 HDL 49.0 mg/dl 05/27/2017 Lipid Ord30 TRIG 347 mg/dL 05/27/2017 Lipid Ord30 LDL 49 mg/dL 05/27/2017 Lipid Ord30 C/HDL 3.4 Ratio 05/27/2017 Magnesium Ord90 Mag 1.4 mg/dL 05/27/2017 %Hba1C Nxx874 % HbA1c 52355-0 5.9 % 05/27/2017 %Hba1C Qeb773 Gluc Ave 123 mg/dL 05/27/2017 Comp Metabolic Gwy854 NA 138 mEq/L 05/27/2017 Comp Metabolic Hau024 K 4.1 mEq/L 05/27/2017 Comp Metabolic Bxh679 CL 101 mEq/L 05/27/2017 Comp Metabolic Ngj867 CO2 31.0 mEq/L 05/27/2017 Comp Metabolic Viq133 AN ION GAP 10 05/27/2017 Comp Metabolic Mrd118 GL UCOSE 117 mg/dL 05/27/2017 Comp Metabolic Ymx079 Cr eat 0.9 mg/dL 05/27/2017 Comp Metabolic Clc421 eG FR 62 ml/min/1.73m2 05/27 Comp Metabolic Wex919 BUN 25 mg/dL 05/27/2017 Comp Metabolic Ogp289 B/ C Ratio 26.6 Ratio 05/27/2017 Comp Metabolic Zmx614 CA LCIUM 9.5 mg/dL 05/27/2017 Comp Metabolic Ard348 AL K PHOS 73 U/L 05/27/2017 Comp Metabolic Htt892 T(SGOT) 18 U/L 05/27/2017 Comp Metabolic Iyy116 AL T(SGPT) 12 U/L 05/27/2017 Comp Metabolic Ygd328 BI LI T 0.5 mg/dL 05/27/2017 Comp Metabolic Rim666 AL BUMIN 4.1 g/dL 05/27/2017 Comp Metabolic Ehf617 TP RO 7.1 g/dL 05/27/2017 Comp Metabolic Sif625 GL OB 3.0 g/dL 05/27/2017 Comp Metabolic Tjn445 A/ G Ratio 1.3 Ratio 05/27/2017 Comp Metabolic Yks975 Os mo 281 mOsmo 05/27/2017 Free T4 Zjc800 FREE T4 0.91 ng/dL 05/27/2017 Pt Iyd0588 PT 29.2 seconds 04/16/2017 Pt Mdq1535 INR 2.7 04/16/2017 Pt Rjf0750 Low Intensity - 1.5-2.0 04/16/2017 Pt Jqk0179 Mod intensity - 2.0-3.0 04/16/2017 Pt Zpb3650 Hi intensity - 3.0-4.0 04/16/2017 Pt Mpz7244 PT 30.7 seconds 03/31/2017 Pt Lie7843 INR 2.9 03/31/2017 Pt Mgk7759 Low Intensity - 1.5-2.0 03/31/2017 Pt Jqf4703 Mod intensity - 2.0-3.0 03/31/2017 Pt Yrc1910 Hi intensity - 3.0-4.0 03/31/2017 Pt Iui9212 PT 21.3 seconds 03/26/2017 Pt Ied1917 INR 1.9 03/26/2017 Pt Rhx3464 Low Intensity - 1.5-2.0 03/26/2017 Pt Ygq7603 Mod intensity - 2.0-3.0 03/26/2017 Pt Msk1297 Hi intensity - 3.0-4.0 03/26/2017 Pt Orz7800 PT 19.8 seconds 03/22/2017 Pt Hhq9541 INR 1.7 03/22/2017 Pt Tmd6994 Low Intensity - 1.5-2.0 03/22/2017 Pt Spn2304 Mod intensity - 2.0-3.0 03/22/2017 Pt Dwd0439 Hi intensity - 3.0-4.0 03/22/2017 Pt Krn6905 PT 15.6 seconds 03/19/2017 Pt Qwk7311 INR 1.3 03/19/2017 Pt Aoj4391 Low Intensity - 1.5-2.0 03/19/2017 Pt Wnu2524 Mod intensity - 2.0-3.0 03/19/2017 Pt Dhm1306 Hi intensity - 3.0-4.0 03/19/2017 Pt Xay2340 PT 13.7 seconds 03/15/2017 Pt Rwm7681 INR 1.1 03/15/2017 Pt Fgo1924 Low Intensity - 1.5-2.0 03/15/2017 Pt Gvp7678 Mod intensity - 2.0-3.0 03/15/2017 Pt Odp1066 Hi intensity - 3.0-4.0 03/15/2017 Pt Yxw7654 PT 25.8 seconds 01/28/2017 Pt Aip7303 INR 2.4 01/28/2017 Pt Pul2388 Low Intensity - 1.5-2.0 01/28/2017 Pt Jjj5201 Mod intensity - 2.0-3.0 01/28/2017 Pt Grd2834 Hi intensity - 3.0-4.0 01/28/2017 %Hba1C Mnd845 % HbA1c 30533-7 6.4 % 10/23/2016 %Hba1C Dga291 Gluc Ave 137 mg/dL 10/23/2016 Comp Metabolic Kke036 NA 138 mEq/L 10/23/2016 Comp Metabolic Eza062 K 3.4 mEq/L 10/23/2016 Comp Metabolic Gmt152 CL 100 mEq/L 10/23/2016 Comp Metabolic Xkf858 CO2 30.0 mEq/L 10/23/2016 Comp Metabolic Wiu194 AN ION GAP 11 10/23/2016 Comp Metabolic Xqu743 GL UCOSE 139 mg/dL 10/23/2016 Comp Metabolic Hdy499 Cr eat 0.9 mg/dL 10/23/2016 Comp Metabolic Pbe937 eG FR 62 ml/min/1.73m2 10/23 Comp Metabolic Lob477 BUN 22 mg/dL 10/23/2016 Comp Metabolic Qok821 B/ C Ratio 23.4 Ratio 10/23/2016 Comp Metabolic Yrl910 CA LCIUM 8.7 mg/dL 10/23/2016 Comp Metabolic Ceb798 AL K PHOS 66 U/L 10/23/2016 Comp Metabolic Ytw912 T(SGOT) 20 U/L 10/23/2016 Comp Metabolic Ive480 AL T(SGPT) 10 U/L 10/23/2016 Comp Metabolic Cpl402 BI LI T 0.5 mg/dL 10/23/2016 Comp Metabolic Faw009 AL BUMIN 3.5 g/dL 10/23/2016 Comp Metabolic Ngu897 TP RO 6.3 g/dL 10/23/2016 Comp Metabolic Hsz428 GL OB 2.8 g/dL 10/23/2016 Comp Metabolic Izk867 A/ G Ratio 1.3 Ratio 10/23/2016 Comp Metabolic Txo803 Os mo 281 mOsmo 10/23/2016 Pt Hvm4307 PT 26.8 seconds 10/23/2016 Pt Rdd0206 INR 2.7 10/23/2016 Pt Xhf1597 Low Intensity - 1.5-2.0 10/23/2016 Pt Obv8817 Mod intensity - 2.0-3.0 10/23/2016 Pt Xol4281 Hi intensity - 3.0-4.0 10/23/2016 Pt Vxd2365 PT 28.3 seconds 09/25/2016 Pt Pak4249 INR 2.8 09/25/2016 Pt Dgl7296 Low Intensity - 1.5-2.0 09/25/2016 Pt Cvm2978 Mod intensity - 2.0-3.0 09/25/2016 Pt Iit3553 Hi intensity - 3.0-4.0 09/25/2016 Metabolic Ord15 [...] Metabolic Ord15 CALCIUM 8.8 mg/dL 09/25/2016 Pt Jbw5836 PT 30.6 seconds 09/11/2016 Pt Rco8211 INR 3.2 09/11/2016 Pt Shj0608 Low Intensity - 1.5-2.0 09/11/2016 Pt Sbv4451 Mod intensity - 2.0-3.0 09/11/2016 Pt Usj6096 Hi intensity - 3.0-4.0 09/11/2016 Comp Metabolic Kfz685 NA 138 mEq/L 09/11/2016 Comp Metabolic Ekz768 K 4.4 mEq/L 09/11/2016 Comp Metabolic Fim639 CL 103 mEq/L 09/11/2016 Comp Metabolic Spp514 CO2 31.0 mEq/L 09/11/2016 Comp Metabolic Zqb235 AN ION GAP 8 09/11/2016 Comp Metabolic Dzm407 GL UCOSE 146 mg/dL 09/11/2016 Comp Metabolic Lsv871 Cr eat 1.0 mg/dL 09/11/2016 Comp Metabolic Idi511 eG FR 60 ml/min/1.73m2 09/11 Comp Metabolic Zgu355 BUN 16 mg/dL 09/11/2016 Comp Metabolic Dum122 B/ C Ratio 16.5 Ratio 09/11/2016 Comp Metabolic Pmg665 CA LCIUM 8.7 mg/dL 09/11/2016 Comp Metabolic Luy073 AL K PHOS 52 U/L 09/11/2016 Comp Metabolic Vfp177 T(SGOT) 19 U/L 09/11/2016 Comp Metabolic Vrg035 AL T(SGPT) 11 U/L 09/11/2016 Comp Metabolic Kcc703 BI LI T 0.7 mg/dL 09/11/2016 Comp Metabolic Myo448 AL BUMIN 3.3 g/dL 09/11/2016 Comp Metabolic Mjy990 TP RO 5.8 g/dL 09/11/2016 Comp Metabolic Aar028 GL OB 2.5 g/dL 09/11/2016 Comp Metabolic Dnk172 A/ G Ratio 1.3 Ratio 09/11/2016 Comp Metabolic Qfq595 Os mo 280 mOsmo 09/11/2016 C-Reactive Protein Qnt Crqnt CRP 0.1 mg/dl 08/21/2016 Comp Metabolic Pgg014 NA 139 mEq/L 08/21/2016 Comp Metabolic Rlw386 K 4.1 mEq/L 08/21/2016 Comp Metabolic Buu641 CL 102 mEq/L 08/21/2016 Comp Metabolic Yuk456 CO2 30.0 mEq/L 08/21/2016 Comp Metabolic Cre566 AN ION GAP 11 08/21/2016 Comp Metabolic Tkw726 GL UCOSE 148 mg/dL 08/21/2016 Comp Metabolic Udq274 Cr eat 1.0 mg/dL 08/21/2016 Comp Metabolic Ykg337 eG FR 55 ml/min/1.73m2 08/21 Comp Metabolic Ssx788 BUN 21 mg/dL 08/21/2016 Comp Metabolic Gth531 B/ C Ratio 20.2 Ratio 08/21/2016 Comp Metabolic Llc762 CA LCIUM 9.4 mg/dL 08/21/2016 Comp Metabolic Lab913 AL K PHOS 63 U/L 08/21/2016 Comp Metabolic Phq650 T(SGOT) 23 U/L 08/21/2016 Comp Metabolic Grp870 AL T(SGPT) 16 U/L 08/21/2016 Comp Metabolic Bbe697 BI LI T 0.6 mg/dL 08/21/2016 Comp Metabolic Bge578 AL BUMIN 3.9 g/dL 08/21/2016 Comp Metabolic Qjb793 TP RO 6.8 g/dL 08/21/2016 Comp Metabolic Bbb873 GL OB 2.9 g/dL 08/21/2016 Comp Metabolic Bdv497 A/ G Ratio 1.4 Ratio 08/21/2016 Comp Metabolic Bzt985 Os mo 283 mOsmo 08/21/2016 Sed Rate Ord21 ESR 16 mm/hr 08/21/2016 Pt Nhv5561 PT 27.2 seconds 08/21/2016 Pt Vzi2034 INR 2.7 08/21/2016 Pt Hrc7284 Low Intensity - 1.5-2.0 08/21/2016 Pt Avk2733 Mod intensity - 2.0-3.0 08/21/2016 Pt Wxw8250 Hi intensity - 3.0-4.0 08/21/2016 Magnesium Ord90 Mag 1.9 mg/dL 08/21/2016 Pt Kfq8047 PT 25.9 seconds 06/17/2016 Pt Iaa2277 INR 2.5 06/17/2016 Pt Bbm1940 Low Intensity - 1.5-2.0 06/17/2016 Pt Zgt8190 Mod intensity - 2.0-3.0 06/17/2016 Pt Fro0354 Hi intensity - 3.0-4.0 06/17/2016 Tsh Ord6 hTSH II 2.13 uIU/mL 06/08/2016 Free T4 Cls008 FREE T4 0.79 ng/dL 06/08/2016 Cbc With [...] 26.8 pg 06/08/2016 Cbc With Differential Ord2 Letcher% 12.0 % 06/08/2016 Cbc With Differential Ord2 [...] 1.40 K/ul 06/08/2016 Cbc With Differential Ord2 Letcher ABS# 0.7 K/ul 06/08/2016 Cbc With Differential Ord2 Eos ABS# 0.3 K/ul 06/08/2016 Cbc With Differential Ord2 Baso ABS# 0.1 K/ul 06/08/2016 %Hba1C Flw000 % HbA1c 50314-9 6.2 % 06/08/2016 %Hba1C Bht956 Gluc Ave 131 mg/dL 06/08/2016 Comp Metabolic Azl599 NA 138 mEq/L 06/08/2016 Comp Metabolic Icw420 K 3.9 mEq/L 06/08/2016 Comp Metabolic Klc933 CL 105 mEq/L 06/08/2016 Comp Metabolic Dky773 CO2 27.0 mEq/L 06/08/2016 Comp Metabolic Ttn180 AN ION GAP 10 06/08/2016 Comp Metabolic Qmf669 GL UCOSE 127 mg/dL 06/08/2016 Comp Metabolic Erl703 Cr eat 1.0 mg/dL 06/08/2016 Comp Metabolic Iew376 eG FR 59 ml/min/1.73m2 06/08 Comp Metabolic Hkc875 BUN 19 mg/dL 06/08/2016 Comp Metabolic Gxr758 B/ C Ratio 19.4 Ratio 06/08/2016 Comp Metabolic Grg972 CA LCIUM 9.2 mg/dL 06/08/2016 Comp Metabolic Mou250 AL K PHOS 77 U/L 06/08/2016 Comp Metabolic Oty273 T(SGOT) 19 U/L 06/08/2016 Comp Metabolic Wyv462 AL T(SGPT) 13 U/L 06/08/2016 Comp Metabolic Ntt273 BI LI T 0.5 mg/dL 06/08/2016 Comp Metabolic Urk032 AL BUMIN 3.8 g/dL 06/08/2016 Comp Metabolic Jyz113 TP RO 6.6 g/dL 06/08/2016 Comp Metabolic Ymd120 GL OB 2.8 g/dL 06/08/2016 Comp Metabolic Jnd781 A/ G Ratio 1.4 Ratio 06/08/2016 Comp Metabolic Mjn165 Os mo 280 mOsmo 06/08/2016 Pt Pli6735 PT 36.1 seconds 06/08/2016 Pt Zoo2835 INR 3.9 06/08/2016 Pt Fax6045 Low Intensity - 1.5-2.0 06/08/2016 Pt Vxy0045 Mod intensity - 2.0-3.0 06/08/2016 Pt Zzk7990 Hi intensity - 3.0-4.0 06/08/2016 Lipid Ord30 CHOL 149 mg/dL 06/08/2016 Lipid Ord30 HDL 46.0 mg/dl 06/08/2016 Lipid Ord30 TRIG 279 mg/dL 06/08/2016 Lipid Ord30 LDL 47 mg/dL 06/08/2016 Lipid Ord30 C/HDL 3.2 Ratio 06/08/2016 Pt Oar5655 PT 30.9 seconds 02/12/2016 Pt Fxi4028 INR 3.2 02/12/2016 Pt Dzh7426 Low Intensity - 1.5-2.0 02/12/2016 Pt Znf7420 Mod intensity - 2.0-3.0 02/12/2016 Pt Fog4949 Hi intensity - 3.0-4.0 02/12/2016 Free T4 Hdg271 FREE T4 1.24 ng/dL 09/27/2015 %Hba1C Xgt250 % HbA1c 54881-5 6.4 % 09/27/2015 %Hba1C Dwh452 Gluc Ave 137 mg/dL 09/27/2015 Tsh Ord6 hTSH II 0.37 uIU/mL 09/27/2015 Pt Zio7996 PT 26.2 seconds 09/27/2015 Pt Mgf6043 INR 2.5 09/27/2015 Pt Ewd9039 Low Intensity - 1.5-2.0 09/27/2015 Pt Rme2922 Mod intensity - 2.0-3.0 09/27/2015 Pt Qoc1810 Hi intensity - 3.0-4.0 09/27/2015 Pt Qij6464 PT 27.6 seconds 2015 Pt Mof4233 INR 2.7 2015 Pt Tvd2490 Low Intensity - 1.5-2.0 2015 Pt Sab3893 Mod intensity - 2.0-3.0 2015 Pt Zef6285 Hi intensity - 3.0-4.0 2015 %Hba1C Zzj439 % HbA1c 85430-1 6.1 % 06/11/2015 %Hba1C Gpd485 Gluc Ave 128 mg/dL 06/11/2015 Cbc With [...] Ord2 RDW 15.8 % 06/10/2015 Comp Metabolic Jfk707 NA 139 mEq/L 06/10/2015 Comp Metabolic Fgt736 K 4.1 mEq/L 06/10/2015 Comp Metabolic Pdh179 CL 105 mEq/L 06/10/2015 Comp Metabolic Fit363 CO2 27.0 mEq/L 06/10/2015 Comp Metabolic Ags076 AN ION GAP 11 06/10/2015 Comp Metabolic Uky088 GL UCOSE 127 mg/dL 06/10/2015 Comp Metabolic Hpt094 Cr eat 1.0 mg/dL 06/10/2015 Comp Metabolic Oej047 eG FR 59 ml/min/1.73m2 06/10 Comp Metabolic Qpx173 BUN 21 mg/dL 06/10/2015 Comp Metabolic Dpo423 B/ C Ratio 21.2 Ratio 06/10/2015 Comp Metabolic Cef906 CA LCIUM 9.2 mg/dL 06/10/2015 Comp Metabolic Ipe026 AL K PHOS 87 U/L 06/10/2015 Comp Metabolic Ouy789 T(SGOT) 20 U/L 06/10/2015 Comp Metabolic Bud444 AL T(SGPT) 17 U/L 06/10/2015 Comp Metabolic Iam164 BI LI T 0.4 mg/dL 06/10/2015 Comp Metabolic Wjx324 AL BUMIN 4.1 g/dL 06/10/2015 Comp Metabolic Dnx082 TP RO 7.2 g/dL 06/10/2015 Comp Metabolic Kzy324 GL OB 3.1 g/dL 06/10/2015 Comp Metabolic Nxr596 A/ G Ratio 1.3 Ratio 06/10/2015 Comp Metabolic Ugx370 Os mo 282 mOsmo 06/10/2015 Tsh Ord6 hTSH II 0.86 uIU/mL 06/10/2015 Lipid Ord30 CHOL 161 mg/dL 06/10/2015 Lipid Ord30 HDL 49.0 mg/dl 06/10/2015 Lipid Ord30 TRIG 208 mg/dL 06/10/2015 Lipid Ord30 LDL 70 mg/dL 06/10/2015 Lipid Ord30 C/HDL 3.3 Ratio 06/10/2015 Pt Qpz8184 PT 25.0 seconds 04/09/2015 Pt Uik9390 INR 2.4 04/09/2015 Pt Fac0469 Low Intensity - 1.5-2.0 04/09/2015 Pt Mqq7073 Mod intensity - 2.0-3.0 04/09/2015 Pt Lsy1953 Hi intensity - 3.0-4.0 04/09/2015 Free T4 Wxb057 FREE T4 1.05 ng/dL 01/22/2015 Pt Ogg0433 PT 27.2 seconds 01/22/2015 Pt Jeh2629 INR 2.6 01/22/2015 Pt Chv2609 Low Intensity - 1.5-2.0 01/22/2015 Pt Ydk1929 Mod intensity - 2.0-3.0 01/22/2015 Pt Acb6556 Hi intensity - 3.0-4.0 01/22/2015 Cbc With [...] Differential Ord2 RDW 15.2 % 01/22/2015 B12 Wuv381 B12 402.00 pg/ml 01/22/2015 Tsh Ord6 hTSH II 0.65 uIU/mL 01/22/2015 Lipid Ord30 CHOL 166 mg/dL 01/22/2015 Lipid Ord30 HDL 48.0 mg/dl 01/22/2015 Lipid Ord30 TRIG 264 mg/dL 01/22/2015 Lipid Ord30 LDL 65 mg/dL 01/22/2015 Lipid Ord30 C/HDL 3.5 Ratio 01/22/2015 Comp Metabolic Klm937 NA 138 mEq/L 01/22/2015 Comp Metabolic Xwy439 K 4.1 mEq/L 01/22/2015 Comp Metabolic Wqo955 CL 104 mEq/L 01/22/2015 Comp Metabolic Dzw698 CO2 29.0 mEq/L 01/22/2015 Comp Metabolic Rxj842 AN ION GAP 9 01/22/2015 Comp Metabolic Hii976 GL UCOSE 106 mg/dL 01/22/2015 Comp Metabolic Foj168 Cr eat 0.9 mg/dL 01/22/2015 Comp Metabolic Fuh704 eG FR 63 ml/min/1.73m2 01/22 Comp Metabolic Ubv487 BUN 21 mg/dL 01/22/2015 Comp Metabolic Xtq793 B/ C Ratio 22.3 Ratio 01/22/2015 Comp Metabolic Guq493 CA LCIUM 9.4 mg/dL 01/22/2015 Comp Metabolic Rup666 AL K PHOS 83 U/L 01/22/2015 Comp Metabolic Tso839 T(SGOT) 23 U/L 01/22/2015 Comp Metabolic Lma171 AL T(SGPT) 18 U/L 01/22/2015 Comp Metabolic Yym333 BI LI T 0.8 mg/dL 01/22/2015 Comp Metabolic Kih238 AL BUMIN 4.2 g/dL 01/22/2015 Comp Metabolic Uih769 TP RO 7.3 g/dL 01/22/2015 Comp Metabolic Lxn829 GL OB 3.1 g/dL 01/22/2015 Comp Metabolic Jwc307 A/ G Ratio 1.4 Ratio 01/22/2015 Comp Metabolic Jns211 Os mo 279 mOsmo 01/22/2015 Review of [...] No mental status change 11/02/2016 Psychiatric anxiety 0510/2016 Constitutional No recent illness 09/30/2016 Constitutional No [...] 01/22/2015 Gastrointestinal abdominal pain 01/22/2015 Psychiatric anxiety 09/2014 Gastrointestinal gastroesophageal reflux 01/22/2015 Eyes No blindness [...] dentition 01/18/2018 None Full Exam - General 1995 Ears/Nose/Throat oral cavity/pharynx/larynx Overall: oral mucosa clear 01/18/2018 None Full Exam - General 1995 Ears/Nose/Throat oral cavity/pharynx/larynx Overall: oropharyngeal mucosa clear 01/18/2018 None Full Exam - General 1995 Ears/Nose/Throat oral cavity/pharynx/larynx Overall: hypopharynx benign 01/18/2018 [...] distress 08/20/2016 None Full Exam - General 1995 Constitutional general appearance Overall: well developed 08/20/2016 None Full Exam - General 1994 Constitutional general appearance Overall: well nourished 08/20/2016 [...] lips 08/20/2016 None Full Exam - General 1995 Ears/Nose/Throat oral cavity/pharynx/larynx Overall: oral mucosa clear [...] Procedure Codes Date THER/PROPH/DIAG INJ SC/IM CPT-4: 93123 09/02/2018 TRIAMCINOLONE ACET I [place] NOS CPT-4: J3301 09/02/2018 URINALYSIS NONAUTO W /O SCOPE CPT-4: 28894 03/05/2017 Vital Signs Date Vital 09/02/2018 Blood Pressure 1: 128/72 Code: 8480-6 BMI: 38.2 Code: 92542-0 Heart Rate 1: 80 bpm Height: 5'1" SpO2: 98% Weight: 202 lbs 04/14/2018 Blood Pressure 1: 116/78 Code: 8480-6 BMI: 41.6 Code: 37484-0 Heart Rate 1: 72 bpm Height: 5'1" SpO2: 98% Weight: 220 lbs 01/18/2018 Blood Pressure 1: 132/74 Code: 8480-6 BMI: 43.5 Code: 38905-6 Heart Rate 1: 70 bpm Height: 5'1" SpO2: 97% Weight: 230 lbs 01/04/2018 Blood Pressure 1: 134/76 Code: 8480-6 BMI: 42.7 Code: 82644-4 Heart Rate 1: 83 bpm Height: 5'1" SpO2: 98% Weight: 226 lbs 09/23/2017 Blood Pressure 1: 124/76 Code: 8480-6 BMI: 42.3 Code: 10201-7 Heart Rate 1: 94 bpm Height: 5'1" SpO2: 96% Weight: 224 lbs 05/27/2017 Blood Pressure 1: 146/78 Code: 8480-6 BMI: 41.4 Code: 55406-7 Heart Rate 1: 85 bpm Height: 5'1" SpO2: 98% Weight: 219 lbs 02/24/2017 Blood Pressure 1: 138/66 Code: 8480-6 BMI: 41.4 Code: 14892-3 Heart Rate 1: 78 bpm Height: 5'1" SpO2: 97% Weight: 219 lbs 11/02/2016 Blood Pressure 1: 144/72 Code: 8480-6 BMI: 46.1 Code: 56334-6 Heart Rate 1: 78 bpm Height: 5'1" SpO2: 98% Weight: 244 lbs 09/30/2016 Blood Pressure 1: 130/76 Code: 8480-6 BMI: 45.0 Code: 51451-5 Heart Rate 1: 86 bpm Height: 5'1" SpO2: 98% Weight: 238 lbs 09/10/2016 Blood Pressure 1: 136/68 Code: 8480-6 BMI: 46.3 Code: 28593-4 Heart Rate 1: 83 bpm Height: 5'1" SpO2: 98% Weight: 245 lbs 08/20/2016 Blood Pressure 1: 142/78 Code: 8480-6 BMI: 45.3 Code: 65754-0 Heart Rate 1: 84 bpm Height: 5'1" SpO2: 99% Weight: 240 lbs 06/08/2016 Blood Pressure 1: 134/76 Code: 8480-6 BMI: 44.2 Code: 98252-4 Heart Rate 1: 86 bpm Height: 5'1" SpO2: 96% Weight: 234 lbs 04/02/2016 Blood Pressure 1: 142/70 Code: 8480-6 BMI: 44.6 Code: 15135-8 Heart Rate 1: 78 bpm Height: 5'1" SpO2: 97% Weight: 236 lbs 01/14/2016 Blood Pressure 1: 146/72 Code: 8480-6 BMI: 44.2 Code: 34997-6 Heart Rate 1: 86 bpm Height: 5'1" SpO2: 96% Weight: 234 lbs 10/02/2015 Blood Pressure 1: 158/76 Code: 8480-6 BMI: 44.2 Code: 40352-9 Heart Rate 1: 67 bpm Height: 5'1" SpO2: 97% Weight: 234 lbs 07/15/2015 Blood Pressure 1: 200/90 Code: 8480-6 Blood Pressure 1: 148/78 Code: 8480-6 BMI: 44.0 Code: 47584-9 Heart Rate 1: 89 bpm Height: 5'1" SpO2: 97% Weight: 233 lbs 06/10/2015 Blood Pressure 1: 140/82 Code: 8480-6 BMI: 44.0 Code: 09001-7 Heart Rate 1: 78 bpm Height: 5'1" [...] wearing crocs and there was a new syriac on the floor: her foot didn't move [...] Encounters Encounter Performer Loca tion Codes Date [id number] EST. PATIENT, LEVEL IV Diagnosis: Other acute sinusitis[ICD10: J01.80] Diagnosis: Other allergic rhinitis[ICD10: J30.89] [facility] CPT-4: 91964 09/02/2018 [id number] 09865 EST. P ATIENT, LEVEL IV Diagnosis: Essential (primary) hypertension[ICD10: I10] Diagnosis: Hypothyroidism, unspecified[ICD10: E03.9] Diagnosis: Impaired fasting glucose[ICD10: R73.01] Diagnosis: FDC (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[ICD10: Z79.01] [facility] CPT-4: 93401 04/14/2018 [id number]) [id number] EST. P ATIENT, LEVEL III Diagnosis: Localized edema[ICD10: R60.0] Diagnosis: Gastro-esophageal reflux disease without esophagitis[ICD10: K21.9] [facility] CPT-4: 98205 01/18/2018 [id number]) 63868 EST. P ATIENT, LEVEL IV Diagnosis: Gastro-esophageal reflux disease without esophagitis[ICD10: K21.9] Diagnosis: Localized edema[ICD10: R60.0] Diagnosis: Essential (primary) hypertension[ICD10: I10] Diagnosis: Hypothyroidism, unspecified[ICD10: E03.9] Diagnosis: Impaired fasting glucose[ICD10: R73.01] Edna Almanza MD, [facility] CPT-4: 22212 01/04/2018 ([id number]) 76081 EST. 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 P ATIENT, LEVEL IV Diagnosis: Essential (primary) hypertension[ICD10: I10] Diagnosis: Mixed hyperlipidemia[ICD10: E78.2] Diagnosis: Hypothyroidism, unspecified[ICD10: E03.9] Diagnosis: Impaired fasting glucose[ICD10: R73.01] Diagnosis: FDC (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[ICD10: Z79.01] Edna Almanza MD, [facility] CPT-4: 58510 05/27/2017 33362 EST. PATIENT, LEVEL III Diagnosis: Pain in right hip[ICD10: M25.551] Nata Almanza MD, [facility] CPT-4: 83538 02/24/2017 ([id number]) 60440 EST. P ATIENT, LEVEL IV Diagnosis: Essential (primary) hypertension[ICD10: I10] Diagnosis: Localized edema[ICD10: R60.0] Diagnosis: Pain in right hip[ICD10: M25.551] Sarai Almanza MD, [facility] CPT-4: 49120 11/02/2016 ([id number]) 41565 EST. P ATIENT, LEVEL IV Diagnosis: Essential (primary) hypertension[ICD10: I10] Diagnosis: Localized edema[ICD10: R60.0] Sarai Almanza MD, [facility] CPT-4: 92672 09/30/2016 00389 EST. PATIENT, LEVEL IV Diagnosis: Localized edema[ICD10: R60.0] Diagnosis: Pain in joints of left hand[ICD10: M25.542] Diagnosis: Pain in joints of right hand[ICD10: M25.541] Nata Almanza MD, [facility] CPT-4: 78537 09/10/2016 38442 EST. PATIENT, LEVEL IV Diagnosis: Localized edema[ICD10: R60.0] Diagnosis: Pain in joints of left hand[ICD10: M25.542] Diagnosis: Pain in joints of right hand[ICD10: M25.541] Diagnosis: Other fatigue[ICD10: R53.83] Nata Almanza MD, [facility] CPT-4: 56940 08/20/2016 66771 EST. PATIENT, LEVEL IV Diagnosis: Essential (primary) hypertension[ICD10: I10] Diagnosis: Other penitentiary (current) drug therapy[ICD10: Z79.899] Diagnosis: Tinnitus, bilateral[ICD10: H93.13] Nata Almanza MD, [facility] CPT-4: 62702 06/08/2016 30331 EST. PATIENT, LEVEL IV Diagnosis: Other allergic rhinitis[ICD10: J30.89] Diagnosis: Acute laryngopharyngitis[ICD10: J06.0] Nata Almanza MD, [facility] CPT-4: 93396 04/02/2016 60594 EST. PATIENT, LEVEL IV Diagnosis: Left upper quadrant pain[ICD10: R10.12] Nata Almanza MD, [facility] CPT-4: 41757 01/14/2016 63089 EST. PATIENT, LEVEL IV Diagnosis: Pain in left shoulder[ICD10: M25.512] Diagnosis: Body mass index (BMI) 40.0-44.9, adult[ICD10: Z68.41] Nata Almanza MD, [facility] CPT-4: 74786 10/02/2015 73028 EST. PATIENT, LEVEL IV Diagnosis: Pain in left leg[ICD10: M79.605] Diagnosis: Other penitentiary (current) drug therapy[ICD10: Z79.899] Nata Almanza MD, [facility] CPT-4: 74077 07/15/2015 ([id number]) 54116 EST. 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] Edna Almanza MD, [facility] CPT-4: 35247 06/10/2015 ([id number]) OFFICE [facility] - LEVEL 4 Diagnosis: ESSENTIAL HYPERTENSION[ICD9: 401.9] Diagnosis: HYPOTHYROIDISM[ICD9: 244.9] Diagnosis: ENCNTR LONG-RX USE NEC[ICD9: V58.69] Diagnosis: HYPERLIPIDEMIA[ICD9: 272.4] Diagnosis: Vitamin B12 deficiency[ICD9: 266.2] Diagnosis: Status post gastric surgery[ICD9: V45.89] Diagnosis: Snoring[ICD9: 786.09] Sarai Almanza MD, [facility] CPT-4: 68646 01/22/2015 Plan of Care Planned Activity Notes [...] nasal steroid allergy spray. 09/02/2018 Appointment: Nata sHu WPtel: [address] [place], [place] [phone] (15 min) Moderate 09/02/2018 Patient Education: Patient [...] Hgb A1C 04/14/2018 Appointment: Edna Douglas WPtel: [facility] [place] [facility] [place] [address] (15 min) Moderate 04/14/2018 Patient Education: Patient [...] to further attempt to reduce peripheral edema. WHWZ-kawzfcks-hbnczjai prilosec BID and carafate QID -discussed low spice, low acidic diet 01/18/2018 Appointment: Edna Douglas WPtel: [phone] [phone] (15 min) Moderate 01/18/2018 Patient Education: Patient [...] of control. 01/04/2018 Appointment: Edna Douglas WPtel: [address] [place], [place] [phone] (30 min) Complex 01/04/2018 Patient Education: Patient Medication Summary Completed 01/04/2018 Care Plan: SCREENINGMAMMOGRAPHYDIGITAL LOINC : 77446-8 Pending 01/04/2018 Visit Plan: Abdominal hernia - not able to be taken to surgery by local providers and pt has been seen at [facility] and that surgeon felt like Kat would be better served by Dr. Betancur at [facility] Jenaro singh recommended a referral to dr. cecelia [...] at home. 09/23/2017 App[facility]ment: [facility] [phone] [facility] ([facility] min) Moderate 09/23/2017 Patient Education: Patient Medication Summary Completed 09/23/2017 Visit Plan: Hypertension - well con troignaciaed - continue with current medications, continue with [...] to medications. 05/27/2017 Appointment: [facility] [phone] [phone] (30 min) Complex 05/27/2017 Patient Education: Patient [...] Dr. Palacios. 02/24/2017 Appointment: [facility] Hsu [facility] [phone] [phone] (30 min) Complex 02/24/2017 Patient Education: Patient [...] dr. Chaney. 11/02/2016 Appointment: [facility] [phone] [facility] (15 min) Moderate 11/02/2016 Patient Education: Patient [...] peripheral edema. 09/30/2016 Appointment: [facility] [phone] [facility] [place] (15 min) Moderate 09/30/2016 Patient Education: Patient [...] peripheral edema. 09/10/2016 Appointment: Nata Hsu WPtel: [address] [place] [phone] (30 min) Complex 09/10/2016 Patient Education: Patient [...] peripheral edema. 08/20/2016 Appointment: Nata Hsu WPtel: [facility] [place] [facility] [place] [address] (30 min) Complex 08/20/2016 Patient Education: Patient Medication Summary Completed 08/20/2016 Referral: Rosa [address] Referral Initiated 07/02/2016 Visit Plan: Chronic [...] 06/08/2016 Care Plan: Referral Order SNOMED-CT : [id number] Pending 06/08/2016 Visit Plan: URI - Pt [...] allergy spray. 04/02/2016 Appointment: [facility]ata Hsu [facility]el[facility] [phone] [phone] [place] (30 min) Complex 04/02/2016 Patient Education: Patient [...] acute pain 01/14/2016 Appointment: Edna Douglas WPtel: [facility] [place] [facility] [place] [phone] [place] (30 min) Complex 01/14/2016 Patient Education: Patient Medication Summary Completed 01/14/2016 Patient Education: Obesity Completed 01/14/2016 Care Plan: BMI Above normal followup DAVID F-MGMT EDUC & TRAIN 1 PT Pending 10/24/2015 Care Plan: X-RAY EXAM OF SHOULDER LOINC : 94180-8 Pending 10/24/2015 Visit Plan: Left shoulder pain [...] check. 10/02/2015 Appointment: Edna Douglas [facility] [phone] [phone] [place] (15 min) Moderate 10/02/2015 Patient Education: Patient [...] ses Completed 06/10/2015 Appointment: Sarai Almanza WPtel: [phone] [facility] (15 min) Moderate 04/22/2015 Visit Plan: Hypertension [...] have surgical fixation - planning occurring at [facility]. Snoring - Sleep apnea symptoms with [...] to medications. 01/22/2015 Appointment: Sarai Almanza WPtel: [facility] [place] [facility] [place] [facility] [place] ([place] New Patient 01/22/2015 Patient Education: Patient Medication Summary Completed 01/22/2015 Patient Education: Hypertension Completed 01/22/2015 Referral: [facility] Referral Initiated Instructions Comment steroid shot today [...] to further attempt to reduce peripheral edema. RNUD-awckziki-bseqrdwq prilosec BID and carafate QID -discussed low [...] providers and pt has been seen at [facility] and that surgeon felt like Kat would [...] or with other concerns. dr almanza will hav e the staff get you scheduled for [...] have surgical fixation - planning occurring at [facility]. Snoring - Sleep apnea symptoms with [...] INR is between 2.0 and 3.5. . right upper quadra nt pain - [...] to the ER with acute pain . Joint complaints, fatigue - will check [...] further attempt to reduce peripheral edema. . Surgical clearance for right hip replacement [...] have surgical clearance by Dr. Palacios. . URI - Pt advised t o [...]
--- OUTSIDE RECORDS SUMMARY | 2020-01-16 22:30 | XMS REPORT | CCD ---
Author Author Kat Almanza Organization Sarai Almanza MD, [facility] Address [address] [place] [address] Phone Care Team Providers Care Door To Door Selling Agent Name Role Phone PP Unavailable CCM Unavailable Summary Purpose Interface Exchange Insurance Providers Payer name Policy type / Coverage type Covered democrat ID Effective Begin Date Effective End Date WPS Medicare Part B Medicare Part B [id number] 2017 Unknown [employer] [place] Medicare Part B [id number] 2017 Unknown Family history Father Diagnosis Age At Onset Hyperlipidemia Unknown Heart Attack Unknown Mother Diagnosis Age At Onset Arthritis Unknown Social History Social History Element Codes Description Effective Dates Marital status Unknown M arried Nathan 09/30/2016 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 Number of children Unknown 3 01/22/[address]: 669533892 Never smoker 01/22/[address]: 581041111 Never drinks alcohol 01/22/2015 Allergies, Adverse Reactions, Alerts Substance Reaction Codes Entered Date Inactivated Date Status * NO KNOWN DRUG ORIN RGIES Unknown 01/22/2015 No Inactive Date Active Past Medical History Illness Codes Condition Status Onset Date Resolved Date Mixed hyperlipidemia ICD-9: 272.4 ICD-10: E78.2 Active 06/09/2015 Unknown Hypothyroidism, unsp ecified ICD-9: 244.9 ICD-10: E03.9 Active 05/27/2017 Unknown 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 ICD-10: [...] 780.79 ICD-10: R53.83 Active 08/20/2016 Unknown Other long-term (cur rent) drug therapy ICD-9: V58.69 ICD-10: [...] ecified ICD-9: 244.9 ICD-10: E03.9 05/27/2017 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 ICD-10: [...] ICD-9: 780.79 ICD-10: R53.83 08/20/2016 Active Other long-term (cur rent) drug therapy ICD-9: V58.69 ICD-10: [...] Date Stop Date Sta tus Fill Instructions Plavix 75 mg tablet RxNorm: 322230 TAKE ONE TABLET BY MOUTH DAILY 02/24/2019 05/18/2020 Ac tive potassium chloride E R 20 mEq tablet,extended release RxNorm: 516324 Tablet(s) TAKE ONE TABLET BY MOUTH DAILY 02/13/2019 05/13/2019 Active Coumadin 4 mg tablet RxNorm: 276810 TAKE TWO TABLETS BY MOUTH DAILY 02/13/2019 08/11/2019 Ac tive omeprazole 20 mg cap sean,delayed release RxNorm: 586176 TAKE ONE CAPSULE BY M OUTH TWICE A DAY 02/03/2019 07/26/2020 Active sodium bicarbonate 6 50 mg tablet RxNorm: 486533 TAKE TWO TABLETS BY M OUTH TWICE A DAY 02/03/2019 07/02/2019 Ac tive potassium chloride E R 20 mEq tablet,extended release RxNorm: 742911 TAKE ONE TABLET BY MOUTH DAILY 01/19/2019 02/12/2019 Inactive Carafate 1 gram tablet RxNorm: 965951 TAKE ONE TABLET BY MOUTH BEFORE MEALS AN D AT BEDTIME 12/30/2018 02/19/2019 Inactive Carafate 1 gram tablet RxNorm: 352019 TAKE ONE TABLET BY MOUTH BEFORE MEALS AN D AT BEDTIME 12/12/2018 12/29/2018 Inactive mupirocin 2 % topica l ointment RxNorm: 269874 1 Application TOP TID 12/08/2018 12/17/2018 Inactive mupirocin 2 % topica l ointment RxNorm: 542842 1 Application TOP TID 12/08/2018 12/07/2018 Inactive allopurinol 300 mg t ablet RxNorm: 103607 TAKE ONE TABLET BY MO UTH DAILY 11/22/2018 03/21/2019 Ac tive clonazepam 0.5 mg ta blet RxNorm: 787360 1 Tablet(s) PO BID 11/16/2018 04/14/2019 Active Carafate 1 gram tablet RxNorm: 664131 TAKE ONE TABLET BY MOUTH BEFORE MEALS AN D AT BEDTIME 11/15/2018 12/10/2018 Inactive atenolol 100 mg tablet RxNorm: 946196 TAKE ONE TABLET BY MOUTH DAILY 10/24/2018 05/21/2019 Ac tive potassium chloride E R 20 mEq tablet,extended release RxNorm: 959586 2 Tablet(s) PO daily 10/18/2018 02/13/2019 Inactive potassium chloride E R 20 mEq tablet,extended release RxNorm: 822684 1 Tablet(s) PO daily 10/03/2018 10/17/2018 Inactive Carafate 1 gram tablet RxNorm: 013583 TAKE ONE TABLET BY MOUTH BEFORE MEALS AN D AT BEDTIME 09/26/2018 11/14/2018 Inactive prednisone 10 mg tablet RxNorm: 888144 Tablet(s) PO 09/02/2018 No Stop Date Active 60,60,50,50,40,40,30,30,20,20,10,10 Synthroid 125 mcg ta blet RxNorm: 452339 1 Tablet(s) PO daily 09/02/2018 08/27/2019 Active potassium chloride E R 20 mEq tablet,extended release RxNorm: 157320 1 Tablet(s) PO daily 09/02/2018 09/01/2018 Inactive potassium chloride E R 20 mEq tablet,extended release RxNorm: 355569 1 Tablet(s) PO daily 09/02/2018 10/02/2018 Inactive Plavix 75 mg tablet RxNorm: 858101 TAKE ONE TABLET BY MOUTH DAILY 09/02/2018 02/23/2019 In active Synthroid 125 mcg ta blet RxNorm: 748287 1 Tablet(s) PO daily 09/02/2018 09/01/2018 Inactive Keflex 500 mg capsule RxNorm: 356872 1 Capsule(s) PO TID 09/02/2018 09/08/2018 Inactive Kenalog 40 mg/mL maxine pension for injection RxNorm: 8734865 Milliliter(s) Inj 09/02/2018 09/02/2018 In active Lipitor 40 mg tablet RxNorm: 642718 TAKE ONE TABLET BY MOUTH DAILY 07/29/2018 07/23/2019 Ac tive Coumadin 1 mg tablet RxNorm: 273772 TAKE ONE TABLET BY MOUTH DAILY 07/29/2018 10/26/2018 In active Carafate 1 gram tablet RxNorm: 557653 TAKE ONE TABLET BY MOUTH BEFORE MEALS AN D AT BEDTIME 07/28/2018 09/17/2018 Inactive Coumadin 4 mg tablet RxNorm: 616252 2 Tablet(s) daily 07/11/2018 02/05/2019 Inactive Gene andre For:COUMADIN 4MG 07/22/2017 8:58:26 AM Coumadin 5 mg tablet RxNorm: 738246 Tablet(s) TAKE 1 TABLET BY MOUTH DIRE CTED 07/08/2018 01/03/2019 Inactive Generic For:COUMADIN 5MG TAB 03/21/2018 9:13:00 AM Coumadin 4 mg tablet RxNorm: 529870 Tablet(s) TAKE 1 TABLET BY MOUTH THREE T IMES PER WEEK (WEDNESDAY, WEDNESDAY AND WEDNESDAY) 07/08/2018 07/10/2018 Inactive Gene andre For:COUMADIN 4MG 07/22/2017 8:58:26 AM Coumadin 1 mg tablet RxNorm: 465666 1 Tablet(s) PO daily 07/08/2018 08/06/2018 Inactive venlafaxine ER 75 mg capsule,extended release 24 hr RxNorm: 477733 Capsule(s) TAKE 1 CAPSULE BY MOUTH ONCE DAILY 06/23/2018 06/17/2019 Active Generic For:*EFFEXOR XR 75MG 06/19/2017 12:23:45 PM sodium bicarbonate 6 50 mg tablet RxNorm: 375630 Tablet(s) TAKE 2 TABL ETS BY MOUTH TWICE DAILY 06/23/2018 12/19/2018 Inactive 12/20/2017 9:10:59 AM Coumadin 1 mg tablet RxNorm: 127208 1 Tablet(s) PO daily 06/17/2018 07/07/2018 Inactive Coumadin 1 mg tablet RxNorm: 225669 1 Tablet(s) PO daily 06/17/2018 06/16/2018 Inactive clonazepam 0.5 mg ta blet RxNorm: 651783 1 Tablet(s) PO BID 06/08/2018 11/03/2018 Inactive spironolactone 25 mg tablet RxNorm: 193254 TAKE 1 TABLET BY MOUT H EVERY DAY 05/18/2018 05/12/2019 Ac tive Generic For:*ALDACTONE 25MG 05/18/2018 8:57:50 AM Carafate 1 gram tablet RxNorm: 395880 TAKE ONE TABLET BY MOUTH BEFORE MEALS AN D AT BEDTIME 05/18/2018 07/12/2018 Inactive Generic For:CARAFATE 1GM 1 07/18/2017 8:38:28 AM Synthroid 137 mcg ta blet RxNorm: 418040 TAKE 1 TABLET BY MOUT H ONCE DAILY 05/18/2018 08/30/2018 In active Generic For:SYNTHROID 137MCG TAB 2017 8:57:54 AM allopurinol 300 mg t ablet RxNorm: 742111 TAKE 1 TABLET BY MOUT H ONCE DAILY. 04/18/2018 10/14/2018 In active Generic For:ZYLOPRIM 300 MG TABLET 03/22 9:13:47 AM Lasix 20 mg tablet RxNorm: 039258 TAKE ONE TABLET BY MOUTH DAILY 04/18/2018 08/15/2018 In active Generic For:LASIX 20MG 04/18/2018 9:13: 50 AM Carafate 1 gram tablet RxNorm: 066043 TAKE ONE TABLET BY MOUTH BEFORE MEALS AN D AT BEDTIME 04/18/2018 05/17/2018 Inactive Generic For:CARAFATE 1GM 1 9:32:51 AM Coumadin 5 mg tablet RxNorm: 303907 TAKE 1 TABLET BY MOUTH DIRECTED 03/21/2018 07/07/2018 In active Generic For:COUMADIN 5MG TAB 03/21/2018 9:13:00 AM Carafate 1 gram tablet RxNorm: 983303 TAKE ONE TABLET BY MOUTH BEFORE MEALS AN D AT BEDTIME 03/21/2018 04/17/2018 Inactive Generic For:CARAFATE 1GM 1 9:14:24 AM Carafate 1 gram tablet RxNorm: 108810 1 Tablet(s) PO AC & HS 02/17/2018 03/20/2018 Inactive atenolol 100 mg tablet RxNorm: 461666 1 Tablet(s) PO daily 02/04/2018 09/01/2018 Inactive atenolol 50 mg tablet RxNorm: 901111 1 Tablet(s) PO daily 02/03/2018 02/03/2018 Inactive omeprazole 20 mg cap sean,delayed release RxNorm: 382250 1 Capsule(s) BID 01/21/2018 01/15/2019 In active Generic For:PRILOSEC 20MG 07/22/2017 8:5 8:20 AM Carafate 1 gram tablet RxNorm: 512056 1 Tablet(s) PO AC & HS 01/21/2018 02/16/2018 Inactive Carafate 1 gram tablet RxNorm: 302998 1 Tablet(s) PO AC & HS 01/18/2018 01/20/2018 Inactive Carafate 1 gram tablet RxNorm: 766705 1 Tablet(s) PO AC & HS 01/18/2018 02/27/2018 Inactive Carafate 1 gram tablet RxNorm: 746110 1 Tablet(s) PO AC & HS TAKE ONE TABLET B Y MOUTH TWICE DAILY 01/18/2018 05/17/2018 Inactive Generic For:CARAFATE 1GM 0 12/20/2017 9:10:56 AM omeprazole 20 mg cap sean,delayed release RxNorm: 562662 Capsule(s) TAKE 1 CAP SEAN BY MOUTH EVERY DAY 01/17/2018 01/20/2018 Inactive Generic For:PRILOSEC 20MG 0 07/22/2017 8:58:20 AM omeprazole 20 mg cap sean,delayed release RxNorm: 531022 Capsule(s) TAKE 1 CAP SEAN BY MOUTH EVERY DAY 01/14/2018 01/16/2018 Inactive Generic For:PRILOSEC 20MG 07/22/2017 8:58:20 AM clonazepam 0.5 mg ta blet RxNorm: 510692 1 Tablet(s) PO BID 01/07/2018 06/05/2018 Inactive Plavix 75 mg tablet RxNorm: 103948 1 Tablet(s) PO daily 01/07/2018 07/05/2018 Inactive Carafate 1 gram tablet RxNorm: 952070 1 Tablet(s) PO AC & HS 01/04/2018 01/17/2018 Inactive Lasix 20 mg tablet RxNorm: 865621 TAKE ONE TABLET BY MOUTH DAILY 12/20/2017 04/17/2018 In active Generic For:LASIX 20MG 12/20/2017 9:11: 03 AM sodium bicarbonate 6 50 mg tablet RxNorm: 388056 TAKE 2 TABLETS BY JAVON TH TWICE DAILY 12/20/2017 06/17/2018 In active 12/20/2017 9:10:59 AM Carafate 1 gram tablet RxNorm: 651403 TAKE ONE TABLET BY MOUTH TWICE DAILY 12/20/2017 01/17/2018 In active Generic For:CARAFATE 1GM 12/20/2017 9:1 0:56 AM Synthroid 137 mcg ta blet RxNorm: 360492 TAKE 1 TABLET BY MOUT H ONCE DAILY 11/19/2017 05/17/2018 In active Generic For:SYNTHROID 137MCG TAB 2017 8:58:04 AM Detrol LA 4 mg capsu le,extended release RxNorm: 894454 TAKE 1 CAPSULE BY JAVON TH ONCE DAILY 10/20/2017 04/13/2018 Inactive Generic For:DETROL LA 4MG C AP 10/20/2017 9:01:56 AM allopurinol 300 mg t ablet RxNorm: 362656 TAKE 1 TABLET BY MOUT H ONCE DAILY. 10/20/2017 04/17/2018 In active Generic For:ZYLOPRIM 300 MG TABLET 07/2017 9:01:59 AM Coumadin 5 mg tablet RxNorm: 846510 1 Tablet(s) PO UD 10/01/2017 03/20/2018 Inactive cyclobenzaprine 5 mg tablet RxNorm: 638245 1 Tablet(s) PO TID as needed myscle spasm 09/23/2017 10/12/2017 Inactive Lipitor 40 mg tablet RxNorm: 878722 TAKE 1 TABLET BY MOUTH ONCE DAILY 09/20/2017 07/28/2018 In active Generic For:LIPITOR 40MG 09/20/2017 8:5 6:04 AM atenolol 100 mg tablet RxNorm: 712330 1 Tablet(s) PO daily 08/30/2017 02/03/2018 Inactive atenolol 50 mg tablet RxNorm: 888444 1 Tablet(s) PO daily 08/30/2017 08/30/2017 Inactive Lovenox 30 mg/0.3 mL subcutaneous syringe RxNorm: 317274 0.3 Milliliter(s) SQ Q12H 08/24/2017 09/06/2017 In active Lasix 20 mg tablet RxNorm: 726876 TAKE ONE TABLET BY MOUTH DAILY 08/23/2017 12/19/2017 In active Generic For:LASIX 20MG 08/21/2017 9:04: 27 AM Synthroid 137 mcg ta blet RxNorm: 155271 TAKE 1 TABLET BY MOUT H ONCE DAILY 08/23/2017 11/18/2017 In active Generic For:SYNTHROID 137MCG TAB 2017 9:04:30 AM Lovenox 30 mg/0.3 mL subcutaneous syringe RxNorm: 185343 0.3 Milliliter(s) SQ Q12H 08/10/2017 08/23/2017 In active clonazepam 0.5 mg ta blet RxNorm: 172972 1 Tablet(s) PO BID 08/04/2017 12/30/2017 Inactive omeprazole 20 mg cap sean,delayed release RxNorm: 520163 TAKE 1 CAPSULE BY JAVON TH EVERY DAY 07/22/2017 01/13/2018 Inactive Generic For:PRILOSEC 20MG 07/22/2017 8: 58:20 AM Coumadin 4 mg tablet RxNorm: 321259 TAKE 1 TABLET BY MOUTH THREE TIMES PER W KOOTENAI (WEDNESDAY, WEDNESDAY AND WEDNESDAY) 07/22/2017 10/03/2018 Inactive Generic For:COUMADIN 4MG 07/22/2017 8:58:26 AM Coumadin 4 mg tablet RxNorm: 021796 TAKE 1 TABLET BY MOUTH THREE TIMES PER W [place]OT[place] (WEDNESDAY, WEDNESDAY AND WEDNESDAY) 07/22/2017 02/16/2018 Inactive Generic For:COUMADIN 4MG 07/22/2017 8:58:26 AM sodium bicarbonate 6 50 mg tablet RxNorm: 122914 TAKE 2 TABLETS BY JAVON TH TWICE DAILY 06/22/2017 12/18/2017 In active 06/19/2017 12:23:30 PM venlafaxine ER 75 mg capsule,extended release 24 hr RxNorm: 450847 TAKE 1 CAPSULE BY MOUTH ONCE DAILY 06/22/2017 06/16/2018 Inactive Generic For:*EFFEXOR XR 75M G 06/19/2017 12:23:45 PM Coumadin 5 mg tablet RxNorm: 878069 1 Tablet(s) PO UD 06/01/2017 09/30/2017 Inactive Keflex 500 mg capsule RxNorm: 035965 1 Capsule(s) PO TID 05/27/2017 06/02/2017 Inactive Synthroid 137 mcg ta blet RxNorm: 384635 TAKE 1 TABLET BY MOUT H ONCE DAILY 05/24/2017 08/21/2017 In active Generic For:SYNTHROID 137MCG TAB 2016 8:55:59 AM Carafate 1 gram tablet RxNorm: 693321 TAKE ONE TABLET BY MOUTH TWICE DAILY 05/24/2017 12/19/2017 In active Generic For:CARAFATE 1GM 05/24/2017 8:5 5:54 AM spironolactone 25 mg tablet RxNorm: 818664 1 Tablet(s) PO daily 05/24/2017 05/17/2018 Inactive Detrol LA 4 mg capsu le,extended release RxNorm: 894253 1 Capsule(s) PO daily TAKE 1 CAPSULE BY MOUTH ONCE DAILY 05/10/2017 10/19/2017 Inactive Generic For:DETROL LA 4MG CAP 02/19/2017 2:36:00 PM Lasix 20 mg tablet RxNorm: 697703 TAKE ONE TABLET BY MOUTH DAILY 04/23/2017 08/20/2017 In active Generic For:LASIX 20MG 04/23/2017 9:04: 01 AM Coumadin 4 mg tablet RxNorm: 942527 TAKE 1 TABLET BY MOUTH THREE TIMES PER W [place]OTENAI (WEDNESDAY, WEDNESDAY AND WEDNESDAY) 04/23/2017 07/21/2017 Inactive Generic For:COUMADIN 4MG 04/23/2017 9:04:05 AM allopurinol 300 mg t ablet RxNorm: 599428 TAKE 1 TABLET BY MOUT H ONCE DAILY. 04/23/2017 10/19/2017 In active Generic For:ZYLOPRIM 300 MG TABLET 08/2016 9:03:57 AM potassium chloride 2 0 mEq/15 mL oral liquid RxNorm: 003186 Milliliter(s) 30 Milliliter(s) (40mEq) PO daily 03/24/2017 07/21/2017 Inactive Lovenox 30 mg/0.3 mL subcutaneous syringe RxNorm: 452239 0.3 Milliliter(s) SQ Q12H 03/22/2017 03/26/2017 In active Lovenox 30 mg/0.3 mL subcutaneous syringe RxNorm: 019286 0.3 Milliliter(s) SQ Q12H 03/19/2017 03/20/2017 In active Lovenox 30 mg/0.3 mL subcutaneous syringe RxNorm: 833866 0.3 Milliliter(s) SQ Q12H 03/16/2017 03/18/2017 In active clonazepam 0.5 mg ta blet RxNorm: 191995 1 Tablet(s) PO BID 03/02/2017 10/03/2018 Inactive Lovenox 30 mg/0.3 mL subcutaneous syringe RxNorm: 297251 1 injection SQ BID do NOT take the night time dose the day before surgery, or the morning dose the day of surgery 03/01/2017 03/07/2017 Inactive Lovenox 30 mg/0.3 mL subcutaneous syringe RxNorm: 798151 1 injection SQ BID 03/01/2017 02/28/2017 In active Detrol LA 4 mg capsu le,extended release RxNorm: 944385 TAKE 1 CAPSULE BY JAVON TH ONCE DAILY 02/19/2017 05/09/2017 Inactive Generic For:DETROL LA 4MG C AP 02/19/2017 2:36:00 PM hydrocodone 5 mg-humberto taminophen 325 mg tablet RxNorm: 559289 1-2 Tablet(s) PO Q6 P RN 02/04/2017 No Stop Date Active Zetia 10 mg tablet RxNorm: 299461 TAKE 1 TABLET BY MOUTH DAILY 01/25/2017 04/13/2018 Inactive 01/23/2017 9:03:48 AM omeprazole 20 mg cap sean,delayed release RxNorm: 647355 TAKE 1 CAPSULE BY JAVON TH EVERY DAY 01/25/2017 07/21/2017 Inactive Generic For:PRILOSEC 20MG 01/23/2017 9: 03:45 AM Coumadin 4 mg tablet RxNorm: 003300 TAKE 1 TABLET BY MOUTH THREE TIMES PER W [place] (WEDNESDAY, WEDNESDAY AND WEDNESDAY) 01/25/2017 04/22/2017 Inactive Generic For:COUMADIN 4MG 01/23/2017 9:03:51 AM sodium bicarbonate 6 50 mg tablet RxNorm: 603073 TAKE 2 TABLETS BY JAVON TH TWICE DAILY 12/24/2016 06/21/2017 In active 12/24/2016 9:09:27 AM Lasix 20 mg tablet RxNorm: 149697 1 Tablet(s) PO daily 12/24/2016 04/22/2017 Inactive Synthroid 137 mcg ta blet RxNorm: 531156 TAKE 1 TABLET BY MOUT H ONCE DAILY 11/24/2016 05/22/2017 In active Generic For:SYNTHROID 137MCG TAB 2016 9:04:37 AM Coumadin 4 mg tablet RxNorm: 790890 TAKE 1 TABLET BY MOUTH THREE TIMES PER W [place] (WEDNESDAY, WEDNESDAY AND WEDNESDAY) 11/24/2016 01/22/2017 Inactive Generic For:COUMADIN 4MG 11/24/2016 9:04:41 AM hydrocodone 5 mg-humberto taminophen 325 mg tablet RxNorm: 681533 1-2 Tablet(s) PO Q6 P RN 11/17/2016 02/03/2017 In active Carafate 1 gram tablet RxNorm: 507227 TAKE ONE TABLET BY MOUTH TWICE DAILY 10/27/2016 05/23/2017 In active Generic For:CARAFATE 1GM 10/26/2016 8:3 9:42 AM allopurinol 300 mg t ablet RxNorm: 735539 Tablet(s) TAKE 1 TABL ET BY MOUTH ONCE DAILY. 10/26/2016 04/22/2017 Inactive Lipitor 40 mg tablet RxNorm: 567351 1 Tablet(s) PO daily 09/25/2016 09/19/2017 Inactive Coumadin 4 mg tablet RxNorm: 775623 TAKE 1 TABLET BY MOUTH THREE TIMES PER W [place] (WEDNESDAY, WEDNESDAY AND WEDNESDAY) 09/25/2016 11/23/2016 Inactive Generic For:COUMADIN 4MG 09/25/2016 8:55:58 AM Zetia 10 mg tablet RxNorm: 367076 1 Tablet(s) PO daily 09/25/2016 01/22/2017 Inactive gave 1 month of samples clonazepam 0.5 mg ta blet RxNorm: 496385 1 Tablet(s) PO BID 09/21/2016 10/03/2018 Inactive Lasix 20 mg tablet RxNorm: 462719 1 Tablet(s) PO daily 09/15/2016 12/23/2016 Inactive potassium chloride 2 0 mEq/15 mL oral liquid RxNorm: 688706 Milliliter(s) 30 Milliliter(s) (40mEq) PO daily 09/15/2016 01/12/2017 Inactive Lasix 20 mg tablet RxNorm: 152422 2 Tablet(s) PO daily 09/10/2016 09/12/2016 Inactive Lasix 20 mg tablet RxNorm: 860818 1 Tablet(s) PO daily 08/28/2016 08/30/2016 Inactive Lasix 20 mg tablet RxNorm: 820374 1 Tablet(s) PO daily 08/20/2016 08/22/2016 Inactive Detrol LA 4 mg capsu le,extended release RxNorm: 094026 TAKE 1 CAPSULE BY JAVON TH ONCE DAILY 07/27/2016 02/18/2017 Inactive Generic For:DETROL LA 4MG C AP 07/27/2016 9:08:27 AM Coumadin 4 mg tablet RxNorm: 965097 1 Tablet(s) PO 3 x week e and sun 07/27/2016 09/24/2016 In active omeprazole 20 mg cap sean,delayed release RxNorm: 611240 Capsule(s) PO TAKE 1 CAPSULE BY MOUTH ONCE DAILY 07/27/2016 01/22/2017 Inactive venlafaxine ER 75 mg capsule,extended release 24 hr RxNorm: 540659 1 Capsule(s) PO daily 06/29/2016 06/21/2017 Inactive sodium bicarbonate 6 50 mg tablet RxNorm: 630575 TAKE 2 TABLETS BY JAVON TH TWICE DAILY 06/29/2016 12/23/2016 In active 06/27/2016 9:05:39 AM Coumadin 4 mg tablet RxNorm: 289388 1 Tablet(s) PO 3 x week e and sun 06/09/2016 06/08/2016 In active Coumadin 4 mg tablet RxNorm: 994672 1 Tablet(s) PO 3 x week e and sun 06/09/2016 07/26/2016 In active Zetia 10 mg tablet RxNorm: 004324 1 Tablet(s) PO daily 06/09/2016 06/08/2016 Inactive gave 1 month of samples Zetia 10 mg tablet RxNorm: 204350 1 Tablet(s) PO daily 06/09/2016 09/24/2016 Inactive gave 1 month of samples Effexor 75 mg tablet RxNorm: 809674 1 Tablet(s) PO daily 06/08/2016 06/28/2016 Inactive spironolactone 25 mg tablet RxNorm: 499613 1 Tablet(s) PO daily 06/08/2016 05/23/2017 Inactive Synthroid 137 mcg ta blet RxNorm: 651572 1 Tablet(s) PO daily 05/07/2016 11/02/2016 Inactive allopurinol 300 mg t ablet RxNorm: 531163 Tablet(s) TAKE 1 TABL ET BY MOUTH ONCE DAILY. 04/28/2016 10/24/2016 Inactive clonazepam 0.5 mg ta blet RxNorm: 756150 1 Tablet(s) PO BID 04/20/2016 10/03/2018 Inactive Flonase Allergy Reli ef 50 mcg/actuation nasal spray,suspension RxNorm: 2931756 1 Ashley NASAL BID 04/02/2016 No Stop Date Active Zithromax Z-Thomas 250 mg tablet RxNorm: 038361 Tablet(s) PO 04/02/2016 08/27/2016 Inactive cetirizine 10 mg tablet RxNorm: 7170122 1 Tablet(s) PO daily 04/02/2016 05/01/2016 Inactive Carafate 1 gram tablet RxNorm: 797804 Tablet(s) TAKE 1 TABLET TWICE A DAY FOR 30 DAYS 03/30/2016 10/25/2016 Inactive Generic For:CARAFATE 1GM 02/08/2015 12:3 6:39 PM Plavix 75 mg tablet RxNorm: 952064 1 Tablet(s) PO daily 03/11/2016 09/06/2016 Inactive sodium bicarbonate 6 50 mg tablet RxNorm: 801879 Tablet(s) 2 Tablet(s) PO BID 02/28/2016 06/26/2016 In active omeprazole 20 mg cap sean,delayed release RxNorm: 784981 Capsule(s) PO TAKE 1 CAPSULE BY MOUTH ONCE DAILY 01/31/2016 07/26/2016 Inactive Fish Oil 1,000 mg ca psule RxNorm: 1 Capsule(s) PO BID 01/14/2016 No Stop Date Active Synthroid 137 mcg ta blet RxNorm: 820603 1 Tablet(s) PO daily 01/14/2016 05/06/2016 Inactive Detrol LA 4 mg capsu le,extended release RxNorm: 560920 TAKE 1 CAPSULE BY JAVON TH ONCE DAILY 12/30/2015 07/26/2016 Inactive Generic For:DETROL LA 4MG C AP 12/30/2015 9:11:01 AM potassium chloride 2 0 mEq/15 mL oral liquid RxNorm: 931663 Milliliter(s) 30 Milliliter(s) (40mEq) PO daily 12/02/2015 03/30/2016 Inactive sodium bicarbonate 6 50 mg tablet RxNorm: 586132 Tablet(s) 2 Tablet(s) PO BID 10/31/2015 02/27/2016 In active Lipitor 40 mg tablet RxNorm: 425120 1 Tablet(s) PO daily 10/09/2015 09/24/2016 Inactive sodium bicarbonate 6 50 mg tablet RxNorm: 815295 2 Tablet(s) PO BID 10/01/2015 10/30/2015 Inactive allopurinol 300 mg t ablet RxNorm: 012568 TAKE 1 TABLET BY MOUT H ONCE DAILY. 10/01/2015 04/27/2016 In active Generic For:ZYLOPRIM 300 MG TABLET 09/19 9:21:15 AM clonazepam 0.5 mg ta blet RxNorm: 897974 1 Tablet(s) PO BID 09/30/2015 04/19/2016 Inactive Coumadin 5 mg tablet RxNorm: 558863 1 Tablet(s) PO daily 09/27/2015 05/31/2017 Inactive Generic For:COUMADIN 5MG TAB N O T I C E PRESCRIPTION PREVIOUSLY AUTHORIZED BY DOCTOR:BOBBY ZULETA Synthroid 125 mcg ta blet RxNorm: 347754 1 Tablet(s) PO daily 09/27/2015 09/26/2015 Inactive Synthroid 125 mcg ta blet RxNorm: 711313 1 Tablet(s) PO daily 09/27/2015 01/13/2016 Inactive Carafate 1 gram tablet RxNorm: 026509 Tablet(s) TAKE 1 TABLET TWICE A DAY FOR 30 DAYS 09/02/2015 03/29/2016 Inactive Generic For:CARAFATE 1GM 02/08/2015 12:3 6:39 PM sodium bicarbonate 6 50 mg tablet RxNorm: 288419 2 Tablet(s) PO BID 09/02/2015 09/30/2015 Inactive Prilosec 20 mg capsu le,delayed release RxNorm: 906067 TAKE 1 CAPSULE BY JAVON TH ONCE DAILY 08/02/2015 01/28/2016 Inactive Generic For:PRILOSEC 20MG 08/02/2015 10:03:09 AM N O T I C E PRESCRIPTION PREVIOUSLY AUTHORIZED BY DOCTOR:BOBBY ZULETA Zyrtec 10 mg capsule RxNorm: 5378105 1 Capsule(s) PO daily 07/15/2015 08/13/2015 Inactive Keflex 500 mg capsule RxNorm: 900244 1 Capsule(s) PO TID 07/15/2015 07/21/2015 Inactive cetirizine 10 mg cap sean RxNorm: 5554962 1 Capsule(s) PO daily 07/15/2015 08/13/2015 Inactive hydrocodone 5 mg-humberto taminophen 325 mg tablet RxNorm: 796431 1-2 Tablet(s) PO Q6 P RN 06/10/2015 11/16/2016 In active sodium bicarbonate 6 50 mg tablet RxNorm: 431357 2 Tablet(s) PO BID 06/03/2015 08/31/2015 Inactive Detrol LA 4 mg capsu le,extended release RxNorm: 668968 TAKE 1 CAPSULE BY JAVON TH ONCE DAILY 06/03/2015 12/29/2015 Inactive Generic For:DETROL LA 4MG C AP N O T I C E PRESCRIPTION PREVIOUSLY AUTHORIZED BY DOCTOR:BOBBY ZULETA atenolol 50 mg tablet RxNorm: 518323 1 Tablet(s) PO daily TAKE 1 TABLET BY MO UTH DAILY 05/07/2015 08/23/2017 Inactive Generic For:TENORMIN 50MG 05/04/2015 9:07:22 AM spironolactone 25 mg tablet RxNorm: 873137 1 Tablet(s) PO daily 05/06/2015 06/07/2016 Inactive venlafaxine ER 75 mg capsule,extended release 24 hr RxNorm: 204437 1 Capsule(s) PO daily 05/04/2015 06/28/2016 Inactive atenolol 50 mg tablet RxNorm: 567885 TAKE 1 TABLET BY MOUTH DAILY 05/04/2015 05/06/2015 Inactive Generic For:TENORMIN 50MG 05/04/2015 9: 07:22 AM Synthroid 150 mcg ta blet RxNorm: 781142 TAKE 1 TABLET BY MOUT H ONCE DAILY. 04/05/2015 09/26/2015 In active Generic For:SYNTHROID 150MCG TAB 2014 4:45:40 PM N O T I C E PRESCRIPTION PREVIOUSLY AUTHORIZED BY DOCTOR:BOBBY ZULETA Effexor 75 mg tablet RxNorm: 503302 1 Tablet(s) PO daily 04/05/2015 07/03/2015 Inactive Coumadin 5 mg tablet RxNorm: 629398 TAKE 1 AND 1/2 TABLETS BY MOUTH ONCE MYRANDA LY 04/04/2015 09/26/2015 In active Generic For:COUMADIN 5MG TAB N O T I C E PRESCRIPTION PREVIOUSLY AUTHORIZED BY DOCTOR:BOBBY ZULETA clonazepam 0.5 mg ta blet RxNorm: 775939 1 Tablet(s) PO BID 03/13/2015 11/05/2015 Inactive sodium bicarbonate 6 50 mg tablet RxNorm: 126905 2 Tablet(s) PO BID 03/08/2015 06/02/2015 Inactive allopurinol 300 mg t ablet RxNorm: 948627 TAKE 1 TABLET BY MOUT H ONCE DAILY. 03/05/2015 09/30/2015 In active N O T I C E PRESCRIPTION PREVIOUSLY A UTHORIZED BY DOCTOR:BOBBY ZULETA Plavix 75 mg tablet RxNorm: 491021 1 Tablet(s) PO daily 02/12/2015 09/09/2015 Inactive clonazepam 0.5 mg ta blet RxNorm: 549193 1 Tablet(s) PO BID 02/11/2015 03/11/2015 Inactive Carafate 1 gram tablet RxNorm: 710339 TAKE 1 TABLET TWICE A DAY FOR 30 DAYS 02/08/2015 02/07/2015 In active Generic For:CARAFATE 1GM 02/08/2015 12:3 6:39 PM Carafate 1 gram tablet RxNorm: 358005 Tablet(s) TAKE 1 TABLET TWICE A DAY FOR 30 DAYS 02/08/2015 09/01/2015 Inactive Generic For:CARAFATE 1GM 02/08/2015 12:3 6:39 PM potassium chloride 2 0 mEq/15 mL oral liquid RxNorm: 695285 30 Milliliter(s) (40m Eq) PO daily 02/05/2015 12/01/2015 Inactive atenolol 50 mg tablet RxNorm: 985908 1 Tablet(s) PO daily 02/04/2015 05/03/2015 Inactive [SAVINGS FOR NON-COVERED DRUGS -- BIN:00 [id number], PCN: [id number], Group: XXXXX, ID# [id number], Questions: . THIS IS NOT INSURANCE.] potassium chloride 2 0 mEq/15 mL oral liquid RxNorm: 112740 30 Milliliter(s) (40m Eq) PO daily 01/08/2015 02/04/2015 Inactive potassium chloride 2 0 mEq/15 mL oral liquid RxNorm: 890393 30 Milliliter(s) (40m Eq) PO daily 12/07/2014 01/07/2015 Inactive atenolol 50 mg tablet RxNorm: 341042 1 Tablet(s) PO daily 11/09/2014 11/08/2014 Inactive atenolol 50 mg tablet RxNorm: 598483 1 Tablet(s) PO daily 11/09/2014 02/03/2015 Inactive [SAVINGS FOR NON-COVERED DRUGS -- BIN:3584, PCN: [id number], Group: XXXXX, ID# XXXXXXX, Questions: . THIS IS NOT INSURANCE.] Voltaren 1 % topical gel RxNorm: 248235 TOP No St art Date Active verapamil ER (HS) 24 0 mg tablet,extended release 24 hr RxNorm: 784745 1 Tablet(s) PO daily No Start Date Active aspirin 81 mg tablet RxNorm: 549399 1 Tablet(s) PO daily No Start Date Active Zofran 4 mg tablet RxNorm: 635131 1 Tablet(s) PO PRN No Start Date Active B12 1000 mcg RxNorm: 1 Tablet(s) PO daily No Start Date Active magnesium oxide 400 mg capsule RxNorm: 676565 2 Capsule(s) PO BID No Start Date Active Synthroid 150 mcg ta blet RxNorm: 861956 1 Tablet(s) PO daily No Start Date 04/04/2015 Inactive Coumadin 5 mg tablet RxNorm: 773764 1 Tablet(s) PO daily No Start Date 04/03/2015 Inactive cranberry 1,000 mg c apsule RxNorm: 184269 1 Capsule(s) PO daily No Start Date 04/13/2018 Inactive allopurinol 300 mg t ablet RxNorm: 816555 1 Tablet(s) PO daily No Start Date 03/04/2015 Inactive Prilosec 20 mg capsu le,delayed release RxNorm: 923527 1 Capsule(s) PO PRN No Start Date 08/01/2015 Inactive potassium chloride 2 0 mEq/15 mL oral liquid RxNorm: 643228 30 Milliliter(s) (40m Eq) PO daily No Start Date 12/06/2014 Inactive atenolol 50 mg tablet RxNorm: 348158 1 Tablet(s) PO daily No Start Date 08/29/2017 Inactive Lipitor 40 mg tablet RxNorm: 883687 1 Tablet(s) PO daily No Start Date 09/19/2017 Inactive Effexor 75 mg tablet RxNorm: 342647 1 Tablet(s) PO daily No Start Date 04/04/2015 Inactive Carafate 1 gram tablet RxNorm: 110283 1 Tablet(s) PO BID No Start Date 02/07/2015 Inactive clonazepam 0.5 mg ta blet RxNorm: 421267 1 Tablet(s) PO BID No Start Date 02/10/2015 Inactive Plavix 75 mg tablet RxNorm: 666164 1 Tablet(s) PO daily No Start Date 02/11/2015 Inactive sodium bicarbonate 6 50 mg tablet RxNorm: 224391 2 Tablet(s) PO BID No Start Date 09/01/2015 Inactive Lovenox 30 mg/0.3 mL subcutaneous syringe RxNorm: 457315 0.3 Milliliter(s) SQ Q12H No Start Date 03/15/2017 Inactive Fish Oil 1,000 mg ca psule RxNorm: 1 Capsule(s) PO daily No Start Date 01/13/2016 Inactive Detrol LA 4 mg capsu le,extended release RxNorm: 105784 1 Capsule(s) PO daily No Start Date 06/02/2015 Inactive Medication Administered Medication Codes Instruc tions Start Date Status Kenalog 40 mg/mL suspension for injection RxNorm: 0226617 Milliliter 09/02/2018 No longer Active Immunizations Vaccine Codes Date Status SHINGARIX CVX: 121 03/23 completed Assessments Condition Codes Effectiv e Dates Mixed hyperlipidemia ICD-10: E78.2 ICD-9: 272.4 10/05/2018 Other acute sinusitis ICD-10: J01.80 ICD-9: 461.8 09/02/2018 Other allergic rhinitis ICD-10: J30. 89 ICD-9: 477.8 09/02/2018 Hypothyroidism, unspecified ICD-10: E03.9 ICD-9: 244.9 04/14/2018 Essential (primary) hypertension ICD -10: I10 ICD-9: 401.9 04/14/2018 correction (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 ICD-10: Z79.01 ICD-9: [...] fatigue ICD-10: R53.83 ICD-9: 780.79 08/20/2016 Other long-term (current) drug therapy ICD-10: Z79.899 ICD-9: V58.69 [...] Code Item Item Code Result Date Pt Bec1951 PT 27.4 seconds 01/27/2019 Pt Hqg3808 INR 2.6 01/27/2019 Pt Smv2456 Low Intensity - 1.5-2.0 01/27/2019 Pt Ury3157 Mod intensity - 2.0-3.0 01/27/2019 Pt Jpe4844 Hi intensity - 3.0-4.0 01/27/2019 Pt Enc2338 PT 21.8 seconds 12/15/2018 Pt Ett5930 INR 2.0 12/15/2018 Pt Hel4767 Low Intensity - 1.5-2.0 12/15/2018 Pt Vrd7138 Mod intensity - 2.0-3.0 12/15/2018 Pt Mxt1963 Hi intensity - 3.0-4.0 12/15/2018 Pt Gsi3914 PT 24.4 seconds 12/09/2018 Pt Auj4686 INR 2.2 12/09/2018 Pt Eek6098 Low Intensity - 1.5-2.0 12/09/2018 Pt Bax7868 Mod intensity - 2.0-3.0 12/09/2018 Pt Ctp3245 Hi intensity - 3.0-4.0 12/09/2018 Pt Xmo0850 PT 35.0 seconds 12/01/2018 Pt Nwt8464 INR 3.5 12/01/2018 Pt Ewo7988 Low Intensity - 1.5-2.0 12/01/2018 Pt Iqj5722 Mod intensity - 2.0-3.0 12/01/2018 Pt Rqj4923 Hi intensity - 3.0-4.0 12/01/2018 Pt Syc9020 PT 26.3 seconds 10/13/2018 Pt Qqh8954 INR 2.5 10/13/2018 Pt Oqs8251 Low Intensity - 1.5-2.0 10/13/2018 Pt Wlw6641 Mod intensity - 2.0-3.0 10/13/2018 Pt Vcq7847 Hi intensity - 3.0-4.0 10/13/2018 Lipid Ord30 CHOL 180 mg/dL 10/07/2018 Lipid Ord30 HDL 74.0 mg/dl 10/07/2018 Lipid Ord30 TRIG 111 mg/dL 10/07/2018 Lipid Ord30 LDL 84 mg/dL 10/07/2018 Lipid Ord30 C/HDL 2.4 Ratio 10/07/2018 Pt Scn0842 PT 38.1 seconds 10/07/2018 Pt Ewu7999 INR 3.9 10/07/2018 Pt Qmq4050 Low Intensity - 1.5-2.0 10/07/2018 Pt Bbi3096 Mod intensity - 2.0-3.0 10/07/2018 Pt Lat8532 Hi intensity - 3.0-4.0 10/07/2018 Tsh Ord6 TSH (3rd IS) 0.43 uIU/mL 09/02/2018 Comp Metabolic Mdz794 NA 136 mEq/L 09/02/2018 Comp Metabolic Rns160 K 4.1 mEq/L 09/02/2018 Comp Metabolic Nps638 CL 103 mEq/L 09/02/2018 Comp Metabolic Tig888 CO2 20.0 mEq/L 09/02/2018 Comp Metabolic Mbx577 AN ION GAP 17 09/02/2018 Comp Metabolic Ikb004 GL UCOSE 124 mg/dL 09/02/2018 Comp Metabolic Uni524 Cr eat 1.0 mg/dL 09/02/2018 Comp Metabolic Ogc069 eG FR 57 ml/min/1.73m2 09/02 Comp Metabolic Pto436 BUN 24 mg/dL 09/02/2018 Comp Metabolic Ysb996 B/ C Ratio 23.8 Ratio 09/02/2018 Comp Metabolic Wjx310 CA LCIUM 9.5 mg/dL 09/02/2018 Comp Metabolic Akq458 AL K PHOS 64 U/L 09/02/2018 Comp Metabolic Ois369 T(SGOT) 24 U/L 09/02/2018 Comp Metabolic Blb971 AL T(SGPT) 23 U/L 09/02/2018 Comp Metabolic Jrq084 BI LI T 0.5 mg/dL 09/02/2018 Comp Metabolic Nqg340 AL BUMIN 4.2 g/dL 09/02/2018 Comp Metabolic Gbe414 TP RO 7.4 g/dL 09/02/2018 Comp Metabolic Szq587 GL OB 3.2 g/dL 09/02/2018 Comp Metabolic Vsd020 A/ G Ratio 1.3 Ratio 09/02/2018 Comp Metabolic Nwq200 Os mo 277 mOsmo 09/02/2018 Pt Dtu5138 PT 40.6 seconds 09/02/2018 Pt Ffj2929 INR 4.2 09/02/2018 Pt Nfz1205 Low Intensity - 1.5-2.0 09/02/2018 Pt Yzz4129 Mod intensity - 2.0-3.0 09/02/2018 Pt Fgt0313 Hi intensity - 3.0-4.0 09/02/2018 Free T4 Czw936 FREE T4 1.51 ng/dL 09/02/2018 Magnesium Ord90 Mag 1.8 mg/dL 09/02/2018 Pt Ysc8438 PT 29.2 seconds 08/05/2018 Pt Xxu2001 INR 2.8 08/05/2018 Pt Wcc5028 Low Intensity - 1.5-2.0 08/05/2018 Pt Pdw2525 Mod intensity - 2.0-3.0 08/05/2018 Pt Wmu5949 Hi intensity - 3.0-4.0 08/05/2018 Pt Qds0004 PT 30.2 seconds 07/25/2018 Pt Wgz7119 INR 2.9 07/25/2018 Pt Lac3752 Low Intensity - 1.5-2.0 07/25/2018 Pt Ldx8579 Mod intensity - 2.0-3.0 07/25/2018 Pt Bii5950 Hi intensity - 3.0-4.0 07/25/2018 Pt Cjn6212 PT 25.2 seconds 07/19/2018 Pt Vpe0112 INR 2.3 07/19/2018 Pt Acj0733 Low Intensity - 1.5-2.0 07/19/2018 Pt Xbr6643 Mod intensity - 2.0-3.0 07/19/2018 Pt Kaz3940 Hi intensity - 3.0-4.0 07/19/2018 Pt Yvv0614 PT 17.4 seconds 07/15/2018 Pt Wkr1217 INR 1.5 07/15/2018 Pt Xfv6510 Low Intensity - 1.5-2.0 07/15/2018 Pt Boj4281 Mod intensity - 2.0-3.0 07/15/2018 Pt Rvc7587 Hi intensity - 3.0-4.0 07/15/2018 Pt Con1826 PT 17.8 seconds 07/08/2018 Pt Haq6467 INR 1.5 07/08/2018 Pt Gtt4379 Low Intensity - 1.5-2.0 07/08/2018 Pt Twx9271 Mod intensity - 2.0-3.0 07/08/2018 Pt Cwq9159 Hi intensity - 3.0-4.0 07/08/2018 Pt Jyh5667 PT 19.2 seconds 07/01/2018 Pt Bxi9842 INR 1.7 07/01/2018 Pt Tmj5829 Low Intensity - 1.5-2.0 07/01/2018 Pt Vgm4336 Mod intensity - 2.0-3.0 07/01/2018 Pt Tpl6665 Hi intensity - 3.0-4.0 07/01/2018 Pt Ymi1910 PT 17.4 seconds 06/23/2018 Pt Ttj2962 INR 1.5 06/23/2018 Pt Gxb1819 Low Intensity - 1.5-2.0 06/23/2018 Pt Wmv4373 Mod intensity - 2.0-3.0 06/23/2018 Pt Hfj9964 Hi intensity - 3.0-4.0 06/23/2018 Pt Dsa5750 PT 18.4 seconds 06/17/2018 Pt Vvf0942 INR 1.6 06/17/2018 Pt Bgz2511 Low Intensity - 1.5-2.0 06/17/2018 Pt Xfy2317 Mod intensity - 2.0-3.0 06/17/2018 Pt Tff1106 Hi intensity - 3.0-4.0 06/17/2018 Sed Rate [...] 30.4 pg 06/08/2018 Cbc With Differential Ord2 [place]% 9.4 % 06/08/2018 Cbc With Differential Ord2 [...] 1.20 K/ul 06/08/2018 Cbc With Differential Ord2 [place] ABS# 0.5 K/ul 06/08/2018 Cbc With Differential Ord2 Eos ABS# 0.1 K/ul 06/08/2018 Cbc With Differential Ord2 Baso ABS# 0.1 K/ul 06/08/2018 C-Reactive Protein Qnt Crqnt CRP 0.1 mg/dl 06/08/2018 Pt Mex8231 PT 17.6 seconds 06/08/2018 Pt Iie9325 INR 1.5 06/08/2018 Pt Kmq4142 Low Intensity - 1.5-2.0 06/08/2018 Pt Orc6676 Mod intensity - 2.0-3.0 06/08/2018 Pt Vov0456 Hi intensity - 3.0-4.0 06/08/2018 Pt Kao0696 PT 16.8 seconds 05/10/2018 Pt Fga5695 INR 1.4 05/10/2018 Pt Mjj7189 Low Intensity - 1.5-2.0 05/10/2018 Pt Jsb9723 Mod intensity - 2.0-3.0 05/10/2018 Pt Fuh1082 Hi intensity - 3.0-4.0 05/10/2018 Pt Cpy3538 PT 16.7 seconds 05/04/2018 Pt Umy9181 INR 1.4 05/04/2018 Pt Zrs4413 Low Intensity - 1.5-2.0 05/04/2018 Pt Tsu7082 Mod intensity - 2.0-3.0 05/04/2018 Pt Zoj5722 Hi intensity - 3.0-4.0 05/04/2018 Free T4 Wji595 FREE T4 1.09 ng/dL 04/14/2018 Tsh Ord6 TSH (3rd IS) 2.36 uIU/mL 04/14/2018 Pt Oko6727 PT 20.3 seconds 04/14/2018 Pt Aer5424 INR 1.8 04/14/2018 Pt Uif2432 Low Intensity - 1.5-2.0 04/14/2018 Pt Afz3088 Mod intensity - 2.0-3.0 04/14/2018 Pt Jgb9311 Hi intensity - 3.0-4.0 04/14/2018 Lipid Ord30 CHOL 149 mg/dL 04/14/2018 Lipid Ord30 HDL 49.0 mg/dl 04/14/2018 Lipid Ord30 TRIG 161 mg/dL 04/14/2018 Lipid Ord30 LDL 68 mg/dL 04/14/2018 Lipid Ord30 C/HDL 3.0 Ratio 04/14/2018 %Hba1C Qjw738 % HbA1c 24099-0 5.9 % 04/14/2018 %Hba1C Asc586 Gluc Ave 123 mg/dL 04/14/2018 Comp Metabolic Dqk607 NA 140 mEq/L 04/14/2018 Comp Metabolic Uea555 K 4.1 mEq/L 04/14/2018 Comp Metabolic Sca934 CL 105 mEq/L 04/14/2018 Comp Metabolic Fnh779 CO2 28.0 mEq/L 04/14/2018 Comp Metabolic Mit188 AN ION GAP 11 04/14/2018 Comp Metabolic Kts373 GL UCOSE 112 mg/dL 04/14/[address] Cr eat 1.0 mg/dL 04/14/2018 Comp Metabolic Pha672 eG FR 58 ml/min/1.73m2 04/14 Comp Metabolic Ila595 BUN 20 mg/dL 04/14/2018 Comp Metabolic Ejh315 B/ C Ratio 20.2 Ratio 04/14/2018 Comp Metabolic Jud648 CA LCIUM 10.0 mg/dL 04/14/2018 Comp Metabolic Fug841 AL K PHOS 51 U/L 04/14/2018 Comp Metabolic Bqy625 T(SGOT) 24 U/L 04/14/2018 Comp Metabolic Bbw593 AL T(SGPT) 21 U/L 04/14/2018 Comp Metabolic Csb699 BI LI T 0.8 mg/dL 04/14/2018 Comp Metabolic Mhm467 AL BUMIN 4.2 g/dL 04/14/2018 Comp Metabolic Uhn061 TP RO 7.1 g/dL 04/14/2018 Comp Metabolic Pbu501 GL OB 2.9 g/dL 04/14/2018 Comp Metabolic Xll190 A/ G Ratio 1.5 Ratio 04/14/2018 Comp Metabolic Upm691 Os mo 283 mOsmo 04/14/2018 Cbc With [...] 30.7 pg 04/14/2018 Cbc With Differential Ord2 [place]% 10.6 % 04/14/2018 Cbc With Differential Ord2 [...] 1.18 K/ul 04/14/2018 Cbc With Differential Ord2 [place] ABS# 0.5 K/ul 04/14/2018 Cbc With Differential Ord2 Eos ABS# 0.2 K/ul 04/14/2018 Cbc With Differential Ord2 Baso ABS# 0.1 K/ul 04/14/2018 Pt Huu6980 PT 29.3 seconds 02/11/2018 Pt Jqi0176 INR 2.8 02/11/2018 Pt Uqo3933 Low Intensity - 1.5-2.0 02/11/2018 Pt Lrw5759 Mod intensity - 2.0-3.0 02/11/2018 Pt Yfq1032 Hi intensity - 3.0-4.0 02/11/2018 Comp Metabolic Ahd290 NA 141 mEq/L 01/05/2018 Comp Metabolic Wvn430 K 3.7 mEq/L 01/05/2018 Comp Metabolic Sxt700 CL 102 mEq/L 01/05/2018 Comp Metabolic Fyd713 CO2 29.0 mEq/L 01/05/2018 Comp Metabolic Hez983 AN ION GAP 14 01/05/2018 Comp Metabolic Umr361 GL UCOSE 136 mg/dL 01/05/2018 Comp Metabolic Nnr326 Cr eat 1.0 mg/dL 01/05/2018 Comp Metabolic Vnv483 eG FR 61 ml/min/1.73m2 01/05 Comp Metabolic Efb386 BUN 22 mg/dL 01/05/2018 Comp Metabolic Opq727 B/ C Ratio 22.9 Ratio 01/05/2018 Comp Metabolic Jjg511 CA LCIUM 9.7 mg/dL 01/05/2018 Comp Metabolic Vwc177 AL K PHOS 57 U/L 01/05/2018 Comp Metabolic Olc453 T(SGOT) 21 U/L 01/05/2018 Comp Metabolic Qym422 AL T(SGPT) 19 U/L 01/05/2018 Comp Metabolic Hks637 BI LI T 0.9 mg/dL 01/05/2018 Comp Metabolic Seb932 AL BUMIN 4.1 g/dL 01/05/2018 Comp Metabolic Loh526 TP RO 7.1 g/dL 01/05/2018 Comp Metabolic Brv673 GL OB 3.0 g/dL 01/05/2018 Comp Metabolic Ksa450 A/ G Ratio 1.4 Ratio 01/05/2018 Comp Metabolic Lat601 Os mo 287 mOsmo 01/05/2018 Free T4 Vzm322 FREE T4 1.05 ng/dL 01/05/2018 %Hba1C Jcs324 % HbA1c 02487-6 6.0 % 01/05/2018 %Hba1C Yjt937 Gluc Ave 126 mg/dL 01/05/2018 Cbc With [...] 30.6 pg 01/05/2018 Cbc With Differential Ord2 [place]% 10.5 % 01/05/2018 Cbc With Differential Ord2 [...] 1.27 K/ul 01/05/2018 Cbc With Differential Ord2 [place] ABS# 0.5 K/ul 01/05/2018 Cbc With Differential Ord2 Eos ABS# 0.2 K/ul 01/05/2018 Cbc With Differential Ord2 Baso ABS# 0.1 K/ul 01/05/2018 Pt Iug5599 PT 20.7 seconds 01/05/2018 Pt Mvh0175 INR 1.8 01/05/2018 Pt Uor5454 Low Intensity - 1.5-2.0 01/05/2018 Pt Dig0225 Mod intensity - 2.0-3.0 01/05/2018 Pt Jfo9215 Hi intensity - 3.0-4.0 01/05/2018 Tsh Ord6 TSH (3rd IS) 2.34 uIU/mL 01/05/2018 Lipid Ord30 CHOL 156 mg/dL 01/05/2018 Lipid Ord30 HDL 48.0 mg/dl 01/05/2018 Lipid Ord30 TRIG 207 mg/dL 01/05/2018 Lipid Ord30 LDL 67 mg/dL 01/05/2018 Lipid Ord30 C/HDL 3.3 Ratio 01/05/2018 Pt Sns8281 PT 28.3 seconds 11/26/2017 Pt Hqv5814 INR 2.6 11/26/2017 Pt Jvl6859 Low Intensity - 1.5-2.0 11/26/2017 Pt Cfj6023 Mod intensity - 2.0-3.0 11/26/2017 Pt Zgp4235 Hi intensity - 3.0-4.0 11/26/2017 Pt Kxk7407 PT 36.5 seconds 11/19/2017 Pt Bvt2269 INR 3.6 11/19/2017 Pt Tcq4453 Low Intensity - 1.5-2.0 11/19/2017 Pt Cfr2885 Mod intensity - 2.0-3.0 11/19/2017 Pt Ude3290 Hi intensity - 3.0-4.0 11/19/2017 Pt Sqa0977 PT 22.9 seconds 10/15/2017 Pt Hkk7928 INR 2.0 10/15/2017 Pt Gcz9727 Low Intensity - 1.5-2.0 10/15/2017 Pt Flt8866 Mod intensity - 2.0-3.0 10/15/2017 Pt Nel6309 Hi intensity - 3.0-4.0 10/15/2017 Pt Sua3319 PT 25.9 seconds 10/01/2017 Pt Qfp4420 INR 2.4 10/01/2017 Pt Uru1873 Low Intensity - 1.5-2.0 10/01/2017 Pt Yqs4057 Mod intensity - 2.0-3.0 10/01/2017 Pt Zhx1675 Hi intensity - 3.0-4.0 10/01/2017 Pt Puq1518 PT 20.6 seconds 09/24/2017 Pt Mgx8175 INR 1.8 09/24/2017 Pt Cwq2730 Low Intensity - 1.5-2.0 09/24/2017 Pt Yuy8457 Mod intensity - 2.0-3.0 09/24/2017 Pt Cvv0184 Hi intensity - 3.0-4.0 09/24/2017 Pt Hal3265 PT 21.0 seconds 09/15/2017 Pt Kxb6085 INR 1.8 09/15/2017 Pt Ibr3061 Low Intensity - 1.5-2.0 09/15/2017 Pt Kjb2592 Mod intensity - 2.0-3.0 09/15/2017 Pt Uon4115 Hi intensity - 3.0-4.0 09/15/2017 Pt Mlc7123 PT 19.0 seconds 09/03/2017 Pt Prz9408 INR 1.6 09/03/2017 Pt Ice0274 Low Intensity - 1.5-2.0 09/03/2017 Pt Ndq8856 Mod intensity - 2.0-3.0 09/03/2017 Pt Vns8285 Hi intensity - 3.0-4.0 09/03/2017 Pt Rtc0384 PT 17.6 seconds 08/23/2017 Pt Rno5724 INR 1.5 08/23/2017 Pt Yws2481 Low Intensity - 1.5-2.0 08/23/2017 Pt Mfb4054 Mod intensity - 2.0-3.0 08/23/2017 Pt Spz7196 Hi intensity - 3.0-4.0 08/23/2017 Pt Znl0811 PT 12.7 seconds 08/20/2017 Pt Rpf4162 INR 1.0 08/20/2017 Pt Owa1498 Low Intensity - 1.5-2.0 08/20/2017 Pt Ykx5445 Mod intensity - 2.0-3.0 08/20/2017 Pt Zgy8077 Hi intensity - 3.0-4.0 08/20/2017 Pt Kvu3245 PT 12.9 seconds 08/17/2017 Pt Clb9355 INR 1.0 08/17/2017 Pt Mow9842 Low Intensity - 1.5-2.0 08/17/2017 Pt Nhr9686 Mod intensity - 2.0-3.0 08/17/2017 Pt Hyl8080 Hi intensity - 3.0-4.0 08/17/2017 Pt Equ7713 PT 18.5 seconds 08/10/2017 Pt Cfz0601 INR 1.6 08/10/2017 Pt Vdx7145 Low Intensity - 1.5-2.0 08/10/2017 Pt Qsw1547 Mod intensity - 2.0-3.0 08/10/2017 Pt Rbs3686 Hi intensity - 3.0-4.0 08/10/2017 Tsh Ord6 [...] 29.3 pg 05/27/2017 Cbc With Differential Ord2 [place]% 8.1 % 05/27/2017 Cbc With Differential Ord2 [...] 1.11 K/ul 05/27/2017 Cbc With Differential Ord2 [place] ABS# 0.6 K/ul 05/27/2017 Cbc With Differential Ord2 Eos ABS# 0.2 K/ul 05/27/2017 Cbc With Differential Ord2 Baso ABS# 0.1 K/ul 05/27/2017 Pt Hte8496 PT 28.2 seconds 05/27/2017 Pt Xir3102 INR 2.6 05/27/2017 Pt Dyx9091 Low Intensity - 1.5-2.0 05/27/2017 Pt Uti1829 Mod intensity - 2.0-3.0 05/27/2017 Pt Brh8994 Hi intensity - 3.0-4.0 05/27/2017 Lipid Ord30 CHOL 167 mg/dL 05/27/2017 Lipid Ord30 HDL 49.0 mg/dl 05/27/2017 Lipid Ord30 TRIG 347 mg/dL 05/27/2017 Lipid Ord30 LDL 49 mg/dL 05/27/2017 Lipid Ord30 C/HDL 3.4 Ratio 05/27/2017 Magnesium Ord90 Mag 1.4 mg/dL 05/27/2017 %Hba1C Alg571 % HbA1c 56439-9 5.9 % 05/27/2017 %Hba1C Rlk861 Gluc Ave 123 mg/dL 05/27/2017 Comp Metabolic Lhw477 NA 138 mEq/L 05/27/2017 Comp Metabolic Cva849 K 4.1 mEq/L 05/27/2017 Comp Metabolic Imw388 CL 101 mEq/L 05/27/2017 Comp Metabolic Mrz595 CO2 31.0 mEq/L 05/27/2017 Comp Metabolic Ssl874 AN ION GAP 10 05/27/2017 Comp Metabolic Gyc934 GL UCOSE 117 mg/dL 05/27/2017 Comp Metabolic Vzh373 Cr eat 0.9 mg/dL 05/27/2017 Comp Metabolic Yql930 eG FR 62 ml/min/1.73m2 05/27 Comp Metabolic Sxk312 BUN 25 mg/dL 05/27/2017 Comp Metabolic Klx674 B/ C Ratio 26.6 Ratio 05/27/2017 Comp Metabolic Dnz290 CA LCIUM 9.5 mg/dL 05/27/2017 Comp Metabolic Fjh618 AL K PHOS 73 U/L 05/27/2017 Comp Metabolic Mxe423 T(SGOT) 18 U/L 05/27/2017 Comp Metabolic Rqf629 AL T(SGPT) 12 U/L 05/27/2017 Comp Metabolic Msx810 BI LI T 0.5 mg/dL 05/27/2017 Comp Metabolic Fea722 AL BUMIN 4.1 g/dL 05/27/2017 Comp Metabolic Gmm852 TP RO 7.1 g/dL 05/27/2017 Comp Metabolic Aae753 GL OB 3.0 g/dL 05/27/2017 Comp Metabolic Aig580 A/ G Ratio 1.3 Ratio 05/27/2017 Comp Metabolic Nrd522 Os mo 281 mOsmo 05/27/2017 Free T4 Dkk000 FREE T4 0.91 ng/dL 05/27/2017 Pt Bmr7508 PT 29.2 seconds 04/16/2017 Pt Ukj8022 INR 2.7 04/16/2017 Pt Uiv1975 Low Intensity - 1.5-2.0 04/16/2017 Pt Eak8195 Mod intensity - 2.0-3.0 04/16/2017 Pt Yxj2886 Hi intensity - 3.0-4.0 04/16/2017 Pt Coc6617 PT 30.7 seconds 03/31/2017 Pt Eys5595 INR 2.9 03/31/2017 Pt Add4110 Low Intensity - 1.5-2.0 03/31/2017 Pt Ehh4839 Mod intensity - 2.0-3.0 03/31/2017 Pt Sqy2170 Hi intensity - 3.0-4.0 03/31/2017 Pt Egk0666 PT 21.3 seconds 03/26/2017 Pt Dez1477 INR 1.9 03/26/2017 Pt Nmc8474 Low Intensity - 1.5-2.0 03/26/2017 Pt Mdq7492 Mod intensity - 2.0-3.0 03/26/2017 Pt Wex3381 Hi intensity - 3.0-4.0 03/26/2017 Pt Vgm2217 PT 19.8 seconds 03/22/2017 Pt Utw3125 INR 1.7 03/22/2017 Pt Sjg8741 Low Intensity - 1.5-2.0 03/22/2017 Pt Pnt7501 Mod intensity - 2.0-3.0 03/22/2017 Pt Hus1776 Hi intensity - 3.0-4.0 03/22/2017 Pt Clp4158 PT 15.6 seconds 03/19/2017 Pt Yjc7380 INR 1.3 03/19/2017 Pt Iqi5285 Low Intensity - 1.5-2.0 03/19/2017 Pt Fjw9345 Mod intensity - 2.0-3.0 03/19/2017 Pt Hfe7885 Hi intensity - 3.0-4.0 03/19/2017 Pt Apw5851 PT 13.7 seconds 03/15/2017 Pt Zdr8652 INR 1.1 03/15/2017 Pt Luy4545 Low Intensity - 1.5-2.0 03/15/2017 Pt Qaf3163 Mod intensity - 2.0-3.0 03/15/2017 Pt Ikj7135 Hi intensity - 3.0-4.0 03/15/2017 Pt Lhc0445 PT 25.8 seconds 01/28/2017 Pt Wdl1251 INR 2.4 01/28/2017 Pt Dax7730 Low Intensity - 1.5-2.0 01/28/2017 Pt Uzc0753 Mod intensity - 2.0-3.0 01/28/2017 Pt Tor3406 Hi intensity - 3.0-4.0 01/28/2017 %Hba1C Fpv570 % HbA1c 75990-1 6.4 % 10/23/2016 %Hba1C Rbt785 Gluc Ave 137 mg/dL 10/23/2016 Comp Metabolic Mqy148 NA 138 mEq/L 10/23/2016 Comp Metabolic Cmj320 K 3.4 mEq/L 10/23/2016 Comp Metabolic Whq112 CL 100 mEq/L 10/23/2016 Comp Metabolic Iqh419 CO2 30.0 mEq/L 10/23/2016 Comp Metabolic Mis949 AN ION GAP 11 10/23/2016 Comp Metabolic Gta580 GL UCOSE 139 mg/dL 10/23/2016 Comp Metabolic Fce460 Cr eat 0.9 mg/dL 10/23/2016 Comp Metabolic Hap172 eG FR 62 ml/min/1.73m2 10/23 Comp Metabolic Nps185 BUN 22 mg/dL 10/23/2016 Comp Metabolic Xca721 B/ C Ratio 23.4 Ratio 10/23/2016 Comp Metabolic Swz830 CA LCIUM 8.7 mg/dL 10/23/2016 Comp Metabolic Zbf965 AL K PHOS 66 U/L 10/23/2016 Comp Metabolic Knv447 T(SGOT) 20 U/L 10/23/2016 Comp Metabolic Bkk629 AL T(SGPT) 10 U/L 10/23/2016 Comp Metabolic Frq023 BI LI T 0.5 mg/dL 10/23/2016 Comp Metabolic Lnc748 AL BUMIN 3.5 g/dL 10/23/2016 Comp Metabolic Aun262 TP RO 6.3 g/dL 10/23/2016 Comp Metabolic Vxh775 GL OB 2.8 g/dL 10/23/2016 Comp Metabolic Bxo297 A/ G Ratio 1.3 Ratio 10/23/2016 Comp Metabolic Mwx092 Os mo 281 mOsmo 10/23/2016 Pt Psc1590 PT 26.8 seconds 10/23/2016 Pt Bup6646 INR 2.7 10/23/2016 Pt Ebj1803 Low Intensity - 1.5-2.0 10/23/2016 Pt Sha9779 Mod intensity - 2.0-3.0 10/23/2016 Pt Gry8710 Hi intensity - 3.0-4.0 10/23/2016 Pt Lqu2827 PT 28.3 seconds 09/25/2016 Pt Xum3362 INR 2.8 09/25/2016 Pt Eve1602 Low Intensity - 1.5-2.0 09/25/2016 Pt Wjb5595 Mod intensity - 2.0-3.0 09/25/2016 Pt Sun5261 Hi intensity - 3.0-4.0 09/25/2016 Metabolic Ord15 [...] Metabolic Ord15 CALCIUM 8.8 mg/dL 09/25/2016 Pt Ocv2266 PT 30.6 seconds 09/11/2016 Pt Bdh5819 INR 3.2 09/11/2016 Pt Otl6096 Low Intensity - 1.5-2.0 09/11/2016 Pt Hcb7465 Mod intensity - 2.0-3.0 09/11/2016 Pt Ttn4609 Hi intensity - 3.0-4.0 09/11/2016 Comp Metabolic Hfy345 NA 138 mEq/L 09/11/2016 Comp Metabolic Hzg854 K 4.4 mEq/L 09/11/2016 Comp Metabolic Doi388 CL 103 mEq/L 09/11/2016 Comp Metabolic Awm248 CO2 31.0 mEq/L 09/11/2016 Comp Metabolic Dun390 AN ION GAP 8 09/11/2016 Comp Metabolic Crs165 GL UCOSE 146 mg/dL 09/11/2016 Comp Metabolic Plw379 Cr eat 1.0 mg/dL 09/11/2016 Comp Metabolic Bdd349 eG FR 60 ml/min/1.73m2 09/11 Comp Metabolic Nbq589 BUN 16 mg/dL 09/11/2016 Comp Metabolic Wqz545 B/ C Ratio 16.5 Ratio 09/11/2016 Comp Metabolic Tkq674 CA LCIUM 8.7 mg/dL 09/11/2016 Comp Metabolic Cji652 AL K PHOS 52 U/L 09/11/2016 Comp Metabolic Enz132 T(SGOT) 19 U/L 09/11/2016 Comp Metabolic Hih211 AL T(SGPT) 11 U/L 09/11/2016 Comp Metabolic Ila210 BI LI T 0.7 mg/dL 09/11/2016 Comp Metabolic Xfr282 AL BUMIN 3.3 g/dL 09/11/2016 Comp Metabolic Sbs698 TP RO 5.8 g/dL 09/11/2016 Comp Metabolic Icm986 GL OB 2.5 g/dL 09/11/2016 Comp Metabolic Wme434 A/ G Ratio 1.3 Ratio 09/11/2016 Comp Metabolic Vmt910 Os mo 280 mOsmo 09/11/2016 C-Reactive Protein Qnt Crqnt CRP 0.1 mg/dl 08/21/2016 Comp Metabolic Nly230 NA 139 mEq/L 08/21/2016 Comp Metabolic Tux923 K 4.1 mEq/L 08/21/2016 Comp Metabolic Lpc596 CL 102 mEq/L 08/21/2016 Comp Metabolic Ymw021 CO2 30.0 mEq/L 08/21/2016 Comp Metabolic Vao570 AN ION GAP 11 08/21/2016 Comp Metabolic Gcc984 GL UCOSE 148 mg/dL 08/21/2016 Comp Metabolic Xdf205 Cr eat 1.0 mg/dL 08/21/2016 Comp Metabolic Igb592 eG FR 55 ml/min/1.73m2 08/21 Comp Metabolic Crh566 BUN 21 mg/dL 08/21/2016 Comp Metabolic Fcb326 B/ C Ratio 20.2 Ratio 08/21/2016 Comp Metabolic Exl288 CA LCIUM 9.4 mg/dL 08/21/2016 Comp Metabolic Dkq017 AL K PHOS 63 U/L 08/21/2016 Comp Metabolic Zfq478 T(SGOT) 23 U/L 08/21/2016 Comp Metabolic Cyp679 AL T(SGPT) 16 U/L 08/21/2016 Comp Metabolic Csq842 BI LI T 0.6 mg/dL 08/21/2016 Comp Metabolic Gjc028 AL BUMIN 3.9 g/dL 08/21/2016 Comp Metabolic Pug563 TP RO 6.8 g/dL 08/21/2016 Comp Metabolic Ipl139 GL OB 2.9 g/dL 08/21/2016 Comp Metabolic Gak650 A/ G Ratio 1.4 Ratio 08/21/2016 Comp Metabolic Zue190 Os mo 283 mOsmo 08/21/2016 Sed Rate Ord21 ESR 16 mm/hr 08/21/2016 Pt Est8295 PT 27.2 seconds 08/21/2016 Pt Nas3716 INR 2.7 08/21/2016 Pt Csx5492 Low Intensity - 1.5-2.0 08/21/2016 Pt Uar1029 Mod intensity - 2.0-3.0 08/21/2016 Pt Abk2085 Hi intensity - 3.0-4.0 08/21/2016 Magnesium Ord90 Mag 1.9 mg/dL 08/21/2016 Pt Sut0956 PT 25.9 seconds 06/17/2016 Pt Szz1468 INR 2.5 06/17/2016 Pt Tyo1948 Low Intensity - 1.5-2.0 06/17/2016 Pt Ytr2796 Mod intensity - 2.0-3.0 06/17/2016 Pt Vwu8296 Hi intensity - 3.0-4.0 06/17/2016 Tsh Ord6 hTSH II 2.13 uIU/mL 06/08/2016 Free T4 Xiw618 FREE T4 0.79 ng/dL 06/08/2016 Cbc With [...] 26.8 pg 06/08/2016 Cbc With Differential Ord2 [place]% 12.0 % 06/08/2016 Cbc With Differential Ord2 [...] 1.40 K/ul 06/08/2016 Cbc With Differential Ord2 [place] ABS# 0.7 K/ul 06/08/2016 Cbc With Differential Ord2 [place] ABS# 0.3 K/ul 06/08/2016 Cbc With Differential Ord2 Baso ABS# 0.1 K/ul 06/08/2016 %Hba1C Got164 % HbA1c 34736-1 6.2 % 06/08/2016 %Hba1C Nkf049 Gluc Ave 131 mg/dL 06/08/2016 Comp Metabolic Gau302 NA 138 mEq/L 06/08/2016 Comp Metabolic Iid082 K 3.9 mEq/L 06/08/2016 Comp Metabolic Cjg348 CL 105 mEq/L 06/08/2016 Comp Metabolic Vgf595 CO2 27.0 mEq/L 06/08/2016 Comp Metabolic Lqc000 AN ION GAP 10 06/08/2016 Comp Metabolic Qzd528 GL UCOSE 127 mg/dL 06/08/2016 Comp Metabolic Yjm531 Cr eat 1.0 mg/dL 06/08/2016 Comp Metabolic Nac980 eG FR 59 ml/min/1.73m2 06/08 Comp Metabolic Gff359 BUN 19 mg/dL 06/08/2016 Comp Metabolic Vbn080 B/ C Ratio 19.4 Ratio 06/08/2016 Comp Metabolic Hit085 CA LCIUM 9.2 mg/dL 06/08/2016 Comp Metabolic Obt319 AL K PHOS 77 U/L 06/08/2016 Comp Metabolic Nga404 T(SGOT) 19 U/L 06/08/2016 Comp Metabolic Gsc499 AL T(SGPT) 13 U/L 06/08/2016 Comp Metabolic Htd567 BI LI T 0.5 mg/dL 06/08/2016 Comp Metabolic Fdo301 AL BUMIN 3.8 g/dL 06/08/2016 Comp Metabolic Ydm782 TP RO 6.6 g/dL 06/08/2016 Comp Metabolic Cqc535 GL OB 2.8 g/dL 06/08/2016 Comp Metabolic Tsz706 A/ G Ratio 1.4 Ratio 06/08/2016 Comp Metabolic Gvf497 Os mo 280 mOsmo 06/08/2016 Pt Zdp5063 PT 36.1 seconds 06/08/2016 Pt Qku8568 INR 3.9 06/08/2016 Pt Jwe0489 Low Intensity - 1.5-2.0 06/08/2016 Pt Hzm9475 Mod intensity - 2.0-3.0 06/08/2016 Pt Qqq6921 Hi intensity - 3.0-4.0 06/08/2016 Lipid Ord30 CHOL 149 mg/dL 06/08/2016 Lipid Ord30 HDL 46.0 mg/dl 06/08/2016 Lipid Ord30 TRIG 279 mg/dL 06/08/2016 Lipid Ord30 LDL 47 mg/dL 06/08/2016 Lipid Ord30 C/HDL 3.2 Ratio 06/08/2016 Pt Hjm2601 PT 30.9 seconds 02/12/2016 Pt Njh1681 INR 3.2 02/12/2016 Pt Txy0564 Low Intensity - 1.5-2.0 02/12/2016 Pt Sto9125 Mod intensity - 2.0-3.0 02/12/2016 Pt Ded5739 Hi intensity - 3.0-4.0 02/12/2016 Free T4 Hiq091 FREE T4 1.24 ng/dL 09/27/2015 %Hba1C Ddh380 % HbA1c 45136-3 6.4 % 09/27/2015 %Hba1C Srn007 Gluc Ave 137 mg/dL 09/27/2015 Tsh Ord6 hTSH II 0.37 uIU/mL 09/27/2015 Pt Jfl5978 PT 26.2 seconds 09/27/2015 Pt Yze9281 INR 2.5 09/27/2015 Pt Mmk8213 Low Intensity - 1.5-2.0 09/27/2015 Pt Fju8743 Mod intensity - 2.0-3.0 09/27/2015 Pt Uck5120 Hi intensity - 3.0-4.0 09/27/2015 Pt Vud1043 PT 27.6 seconds 2015 Pt Cbo2646 INR 2.7 2015 Pt Eyf8374 Low Intensity - 1.5-2.0 2015 Pt Cyj1069 Mod intensity - 2.0-3.0 2015 Pt Wzf1452 Hi intensity - 3.0-4.0 2015 %Hba1C Ukw364 % HbA1c 79127-8 6.1 % 06/11/2015 %Hba1C Hyq853 Gluc Ave 128 mg/dL 06/11/2015 Cbc With [...] Ord2 RDW 15.8 % 06/10/2015 Comp Metabolic Tcg846 NA 139 mEq/L 06/10/2015 Comp Metabolic Onm991 K 4.1 mEq/L 06/10/2015 Comp Metabolic Kgv169 CL 105 mEq/L 06/10/2015 Comp Metabolic Xgp874 CO2 27.0 mEq/L 06/10/2015 Comp Metabolic Bnu752 AN ION GAP 11 06/10/2015 Comp Metabolic Anb340 GL UCOSE 127 mg/dL 06/10/2015 Comp Metabolic Pay598 Cr eat 1.0 mg/dL 06/10/2015 Comp Metabolic Dds649 eG FR 59 ml/min/1.73m2 06/10 Comp Metabolic Bzx766 BUN 21 mg/dL 06/10/2015 Comp Metabolic Yso059 B/ C Ratio 21.2 Ratio 06/10/2015 Comp Metabolic Zyg451 CA LCIUM 9.2 mg/dL 06/10/2015 Comp Metabolic Wgd340 AL K PHOS 87 U/L 06/10/2015 Comp Metabolic Wfx776 T(SGOT) 20 U/L 06/10/2015 Comp Metabolic Dxk263 AL T(SGPT) 17 U/L 06/10/2015 Comp Metabolic Uyv712 BI LI T 0.4 mg/dL 06/10/2015 Comp Metabolic Qqv562 AL BUMIN 4.1 g/dL 06/10/2015 Comp Metabolic Lyo991 TP RO 7.2 g/dL 06/10/2015 Comp Metabolic Yxr261 GL OB 3.1 g/dL 06/10/2015 Comp Metabolic Rzi613 A/ G Ratio 1.3 Ratio 06/10/2015 Comp Metabolic Kic171 Os mo 282 mOsmo 06/10/2015 Tsh Ord6 hTSH II 0.86 uIU/mL 06/10/2015 Lipid Ord30 CHOL 161 mg/dL 06/10/2015 Lipid Ord30 HDL 49.0 mg/dl 06/10/2015 Lipid Ord30 TRIG 208 mg/dL 06/10/2015 Lipid Ord30 LDL 70 mg/dL 06/10/2015 Lipid Ord30 C/HDL 3.3 Ratio 06/10/2015 Pt Qna1280 PT 25.0 seconds 04/09/2015 Pt Loo5491 INR 2.4 04/09/2015 Pt Wio5272 Low Intensity - 1.5-2.0 04/09/2015 Pt Khr1781 Mod intensity - 2.0-3.0 04/09/2015 Pt Hzr5949 Hi intensity - 3.0-4.0 04/09/2015 Free T4 Mpe154 FREE T4 1.05 ng/dL 01/22/2015 Pt Gnd0123 PT 27.2 seconds 01/22/2015 Pt Lvu4589 INR 2.6 01/22/2015 Pt Gym0478 Low Intensity - 1.5-2.0 01/22/2015 Pt Ach4240 Mod intensity - 2.0-3.0 01/22/2015 Pt Lev6207 Hi intensity - 3.0-4.0 01/22/2015 Cbc With [...] Differential Ord2 RDW 15.2 % 01/22/2015 B12 Stb654 B12 402.00 pg/ml 01/22/2015 Tsh Ord6 hTSH II 0.65 uIU/mL 01/22/2015 Lipid Ord30 CHOL 166 mg/dL 01/22/2015 Lipid Ord30 HDL 48.0 mg/dl 01/22/2015 Lipid Ord30 TRIG 264 mg/dL 01/22/2015 Lipid Ord30 LDL 65 mg/dL 01/22/2015 Lipid Ord30 C/HDL 3.5 Ratio 01/22/2015 Comp Metabolic Poi790 NA 138 mEq/L 01/22/2015 Comp Metabolic Mag410 K 4.1 mEq/L 01/22/2015 Comp Metabolic Cwn019 CL 104 mEq/L 01/22/2015 Comp Metabolic Hfb898 CO2 29.0 mEq/L 01/22/2015 Comp Metabolic Tdx968 AN ION GAP 9 01/22/2015 Comp Metabolic Nvr243 GL UCOSE 106 mg/dL 01/22/2015 Comp Metabolic Alc549 Cr eat 0.9 mg/dL 01/22/2015 Comp Metabolic Flp862 eG FR 63 ml/min/1.73m2 01/22 Comp Metabolic Nbl192 BUN 21 mg/dL 01/22/2015 Comp Metabolic Cmw031 B/ C Ratio 22.3 Ratio 01/22/2015 Comp Metabolic Jgx612 CA LCIUM 9.4 mg/dL 01/22/2015 Comp Metabolic Cti621 AL K PHOS 83 U/L 01/22/2015 Comp Metabolic Wao773 T(SGOT) 23 U/L 01/22/2015 Comp Metabolic Ino359 AL T(SGPT) 18 U/L 01/22/2015 Comp Metabolic Omw956 BI LI T 0.8 mg/dL 01/22/2015 Comp Metabolic Bqo317 AL BUMIN 4.2 g/dL 01/22/2015 Comp Metabolic Pqp649 TP RO 7.3 g/dL 01/22/2015 Comp Metabolic Pqe111 GL OB 3.1 g/dL 01/22/2015 Comp Metabolic Wpy662 A/ G Ratio 1.4 Ratio 01/22/2015 Comp Metabolic Bul714 Os mo 279 mOsmo 01/22/2015 Review of [...] No mental status change 11/02/2016 Psychiatric anxiety 05/10/2016 Constitutional No recent illness 09/30/2016 Constitutional No [...] 01/22/2015 Gastrointestinal abdominal pain 01/22/2015 Psychiatric anxiety 08/09/2014 Gastrointestinal gastroesophageal reflux 01/22/2015 Eyes No blindness [...] lips 01/18/2018 None Full Exam - General 1995 Ears/Nose/Throat lips/teeth/gingiva Overall: normal dentition 01/18/2018 None [...] Procedure Codes Date THER/PROPH/DIAG INJ SC/IM CPT-4: 05732 09/02/2018 TRIAMCINOLONE ACET I [place] NOS CPT-4: J3301 09/02/2018 URINALYSIS NONAUTO W /O SCOPE CPT-4: 50952 03/05/2017 Vital Signs Date Vital 09/02/2018 Blood Pressure 1: 128/72 Code: 8480-6 BMI: 38.2 Code: 39965-3 Heart Rate 1: 80 bpm Height: 5'1" SpO2: 98% Weight: 202 lbs 04/14/2018 Blood Pressure 1: 116/78 Code: 8480-6 BMI: 41.6 Code: 37077-5 Heart Rate 1: 72 bpm Height: 5'1" SpO2: 98% Weight: 220 lbs 01/18/2018 Blood Pressure 1: 132/74 Code: 8480-6 BMI: 43.5 Code: 17211-7 Heart Rate 1: 70 bpm Height: 5'1" SpO2: 97% Weight: 230 lbs 01/04/2018 Blood Pressure 1: 134/76 Code: 8480-6 BMI: 42.7 Code: 98982-2 Heart Rate 1: 83 bpm Height: 5'1" SpO2: 98% Weight: 226 lbs 09/23/2017 Blood Pressure 1: 124/76 Code: 8480-6 BMI: 42.3 Code: 65845-0 Heart Rate 1: 94 bpm Height: 5'1" SpO2: 96% Weight: 224 lbs 05/27/2017 Blood Pressure 1: 146/78 Code: 8480-6 BMI: 41.4 Code: 18218-6 Heart Rate 1: 85 bpm Height: 5'1" SpO2: 98% Weight: 219 lbs 02/24/2017 Blood Pressure 1: 138/66 Code: 8480-6 BMI: 41.4 Code: 13400-8 Heart Rate 1: 78 bpm Height: 5'1" SpO2: 97% Weight: 219 lbs 11/02/2016 Blood Pressure 1: 144/72 Code: 8480-6 BMI: 46.1 Code: 93301-3 Heart Rate 1: 78 bpm Height: 5'1" SpO2: 98% Weight: 244 lbs 09/30/2016 Blood Pressure 1: 130/76 Code: 8480-6 BMI: 45.0 Code: 64451-4 Heart Rate 1: 86 bpm Height: 5'1" SpO2: 98% Weight: 238 lbs 09/10/2016 Blood Pressure 1: 136/68 Code: 8480-6 BMI: 46.3 Code: 00776-8 Heart Rate 1: 83 bpm Height: 5'1" SpO2: 98% Weight: 245 lbs 08/20/2016 Blood Pressure 1: 142/78 Code: 8480-6 BMI: 45.3 Code: 25436-2 Heart Rate 1: 84 bpm Height: 5'1" SpO2: 99% Weight: 240 lbs 06/08/2016 Blood Pressure 1: 134/76 Code: 8480-6 BMI: 44.2 Code: 79775-5 Heart Rate 1: 86 bpm Height: 5'1" SpO2: 96% Weight: 234 lbs 04/02/2016 Blood Pressure 1: 142/70 Code: 8480-6 BMI: 44.6 Code: 44916-0 Heart Rate 1: 78 bpm Height: 5'1" SpO2: 97% Weight: 236 lbs 01/14/2016 Blood Pressure 1: 146/72 Code: 8480-6 BMI: 44.2 Code: 00240-9 Heart Rate 1: 86 bpm Height: 5'1" SpO2: 96% Weight: 234 lbs 10/02/2015 Blood Pressure 1: 158/76 Code: 8480-6 BMI: 44.2 Code: 45940-6 Heart Rate 1: 67 bpm Height: 5'1" SpO2: 97% Weight: 234 lbs 07/15/2015 Blood Pressure 1: 200/90 Code: 8480-6 Blood Pressure 1: 148/78 Code: 8480-6 BMI: 44.0 Code: 97243-2 Heart Rate 1: 89 bpm Height: 5'1" SpO2: 97% Weight: 233 lbs 06/10/2015 Blood Pressure 1: 140/82 Code: 8480-6 BMI: 44.0 Code: 77309-8 Heart Rate 1: 78 bpm Height: 5'1" [...] wearing crocs and there was a new omani on the floor: her foot didn't move [...] Encounters Encounter Performer Loca tion Codes Date [id number] EST. PATIENT, LEVEL IV Diagnosis: Other acute sinusitis[ICD10: J01.80] Diagnosis: Other allergic rhinitis[ICD10: J30.89] Nata Almanza MD, [facility] CPT-4: 60625 09/02/2018 [id number]) 20576 EST. P ATIENT, LEVEL IV Diagnosis: Essential (primary) hypertension[ICD10: I10] Diagnosis: Hypothyroidism, unspecified[ICD10: E03.9] Diagnosis: Impaired fasting glucose[ICD10: R73.01] Diagnosis: correction (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[ICD10: Z79.01] Edna Almanza MD, [facility] CPT-4: 58170 04/14/2018 [id number]) 03106 EST. P ATIENT, LEVEL III Diagnosis: Localized edema[ICD10: R60.0] Diagnosis: Gastro-esophageal reflux disease without esophagitis[ICD10: K21.9] Edna Almanza MD, [facility] CPT-4: 20908 01/18/2018 [id number]) 49310 EST. P ATIENT, LEVEL IV Diagnosis: Gastro-esophageal reflux disease without esophagitis[ICD10: K21.9] Diagnosis: Localized edema[ICD10: R60.0] Diagnosis: Essential (primary) hypertension[ICD10: I10] Diagnosis: Hypothyroidism, unspecified[ICD10: E03.9] Diagnosis: Impaired fasting glucose[ICD10: R73.01] Edna Almanza MD, [facility] CPT-4: 43075 01/04/2018 ([id number]) 40401 EST. 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 P ATIENT, LEVEL IV Diagnosis: Essential (primary) hypertension[ICD10: I10] Diagnosis: Mixed hyperlipidemia[ICD10: E78.2] Diagnosis: Hypothyroidism, unspecified[ICD10: E03.9] Diagnosis: Impaired fasting glucose[ICD10: R73.01] Diagnosis: correction (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[ICD10: Z79.01] Edna Almanza MD, [facility] CPT-4: 50675 05/27/2017 53594 EST. PATIENT, LEVEL III Diagnosis: Pain in right hip[ICD10: M25.551] Nata Almanza MD, [facility] CPT-4: 64457 02/24/2017 ([id number]) 66042 EST. P ATIENT, LEVEL IV Diagnosis: Essential (primary) hypertension[ICD10: I10] Diagnosis: Localized edema[ICD10: R60.0] Diagnosis: Pain in right hip[ICD10: M25.551] Sarai Almanza MD, [facility] CPT-4: 69834 11/02/2016 ([id number]) 27036 EST. P ATIENT, LEVEL IV Diagnosis: Essential (primary) hypertension[ICD10: I10] Diagnosis: Localized edema[ICD10: R60.0] Sarai Almanza MD, [facility] CPT-4: 93977 09/30/2016 20378 EST. PATIENT, LEVEL IV Diagnosis: Localized edema[ICD10: R60.0] Diagnosis: Pain in joints of left hand[ICD10: M25.542] Diagnosis: Pain in joints of right hand[ICD10: M25.541] Nata Almanza MD, [facility] CPT-4: 30501 09/10/2016 45481 EST. PATIENT, LEVEL IV Diagnosis: Localized edema[ICD10: R60.0] Diagnosis: Pain in joints of left hand[ICD10: M25.542] Diagnosis: Pain in joints of right hand[ICD10: M25.541] Diagnosis: Other fatigue[ICD10: R53.83] Nata Almanza MD, [facility] CPT-4: 91105 08/20/2016 77086 EST. 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 PATIENT, LEVEL IV Diagnosis: Other allergic rhinitis[ICD10: J30.89] Diagnosis: Acute laryngopharyngitis[ICD10: J06.0] Nata Almanza MD, [facility] CPT-4: 18243 04/02/2016 62881 EST. PATIENT, LEVEL IV Diagnosis: Left upper quadrant pain[ICD10: R10.12] Nata Almanza MD, [facility] CPT-4: 41234 01/14/2016 09447 EST. PATIENT, LEVEL IV Diagnosis: Pain in left shoulder[ICD10: M25.512] Diagnosis: Body mass index (BMI) 40.0-44.9, adult[ICD10: Z68.41] Nata Almanza MD, [facility] CPT-4: 20432 10/02/2015 37179 EST. PATIENT, LEVEL IV Diagnosis: Pain in left leg[ICD10: M79.605] Diagnosis: Other long-term (current) drug therapy[ICD10: Z79.899] Nata Almanza MD, [facility] CPT-4: 86902 07/15/2015 ([id number]) 41531 EST. 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: Other long-term (current) drug therapy[ICD10: Z79.899] [facility] CPT-4: 90169 06/10/2015 ([id number]) OFFICE VISI , [facility] - LEVEL 4 Diagnosis: ESSENTIAL HYPERTENSION[ICD9: 401.9] Diagnosis: HYPOTHYROIDISM[ICD9: 244.9] Diagnosis: ENCNTR LONG-RX USE NEC[ICD9: V58.69] Diagnosis: HYPERLIPIDEMIA[ICD9: 272.4] Diagnosis: Vitamin B12 deficiency[ICD9: 266.2] Diagnosis: Status post gastric surgery[ICD9: V45.89] Diagnosis: Snoring[ICD9: 786.09] [facility] CPT-4: 06704 01/22/2015 Plan of Care Planned Activity Notes [...] allergy spray. 09/02/2018 Appointment: Nata Hsu WPtel: [address] [place], [place] [phone] (15 min) Moderate 09/02/2018 Patient Education: Patient [...] Hgb A1C 04/14/2018 Appointment: Edna Douglas WPtel: [phone] [phone] (15 min) Moderate 04/14/2018 Patient Education: Patient [...] to further attempt to reduce peripheral edema. HPYV-yklhvurp-hqdbdpgt prilosec BID and carafate QID -discussed low spice, low acidic diet 01/18/2018 Appointment: [facility] Douglas [phone] (15 min) Moderate 01/18/2018 Patient Education: Patient [...] of control. 01/04/2018 Appointment: Edna Douglas WPtel: [phone] [phone] (30 min) Complex 01/04/2018 Patient Education: Patient Medication Summary Completed 01/04/2018 Care Plan: SCREENINGMAMMOGRAPHYDIGITAL LOINC : 12416-7 Pending 01/04/2018 Visit Plan: Abdominal hernia - not able to be taken to surgery by local providers and pt has been seen at [facility] and that surgeon felt like [place] would be better served by Dr. Betancur at [facility] francisco recommended a referral to dr. cecelia betancur [...] at home. 09/23/2017 Appointment: Sarai Almanza WPtel: [phone] [facility] [place] (15 min) Moderate 09/23/2017 Patient Education: Patient Medication Summary Completed 09/23/2017 Visit Plan: Hypertension - donita ramirez - continue with current medications, continue with [...] medications. 05/27/2017 Appointment: Edna Douglas [facility]Ptel[phone] [phone] [place] (30 min) Complex 05/27/2017 Patient Education: Patient [...] Dr. Palacios. 02/24/2017 Appointment: Nata Hsu WPtel: [phone] [facility] [place] [place] (30 min) Complex 02/24/2017 Patient Education: Patient [...] dr. Chaney. 11/02/2016 Appointment: [phone] (15 min) Moderate 11/02/2016 Patient Education: [...] edema. 09/30/2016 Appointment: [phone] (15 min) Moderate 09/30/2016 Patient Education: Patient [...] peripheral edema. 09/10/2016 Appointment: Nata Hsu WPtel: [phone] (30 min) Complex 09/10/2016 Patient Education: Patient [...] Appointment: Nata Hsu WPtel: [facility] [address] (30 min) Complex 08/20/2016 Patient Education: Patient Medication Summary Completed 08/20/2016 Referral: Otf Lee [address] Referral Initiated 07/02/2016 Visit Plan: Chronic [...] 06/08/2016 Care Plan: Referral Order SNOMED-CT : [id number] Pending 06/08/2016 Visit Plan: URI - Pt [...] Appointment: Nata Hsu WPtel: [facility] (30 min) Complex 04/02/2016 Patient Education: Patient [...] Appointment: Edna Douglas WPtel: [facility]6 [phone] (30 min) Complex 01/14/2016 Patient Education: Patient Medication Summary Completed 01/14/2016 Patient Education: Obesity Completed 01/14/2016 Care Plan: BMI Above normal followup DAVID F-MGMT EDUC & TRAIN 1 PT Pending 10/24/2015 Care Plan: X-RAY EXAM OF SHOULDER LOINC : 91061-0 Pending 10/24/2015 Visit Plan: Left shoulder pain [...] weight check. 10/02/2015 Appointment: Edna Douglas WPtel: [phone] (15 min) Moderate 10/02/2015 Patient Education: Patient [...] Appointment: Sarai Almanza WPtel: [facility] (15 min) Moderate 04/22/2015 Visit Plan: Hypertension [...] have surgical fixation - planning occurring at [facility]. Snoring - Sleep apnea symptoms with difficulty [...] to medications. 01/22/2015 Appointment: Sarai Almanza WPtel: [address] [place], [place] [phone] [place] ([place]) New Patient 01/22/2015 Patient Education: Patient Medication Summary Completed 01/22/2015 Patient Education: Hypertension Completed 01/22/2015 Referral: [id number] Referral Initiated Instructions Comment steroid shot today [...] in the nasal steroid allergy spray. . Surgical clearance for right hip replacement [...] also have surgical clearance by Dr. Palacios. Come in Wednesday to [place] [facility] PT [...] have surgical fixation - planning occurring at [facility]. Snoring - Sleep apnea symptoms with difficulty [...] further attempt to reduce peripheral edema. . URI - Pt advised t o [...] may need injection from dr. Chaney. . Left shoulder pain - pt states [...] to further attempt to reduce peripheral edema. JERG-geebbosx-toigfsdf prilosec BID and carafate QID -discussed low [...] providers and pt has been seen at [facility] and that surgeon felt like [place] [...]
--- OUTSIDE RECORDS SUMMARY | 2020-01-16 22:33 | XMS REPORT | CCD ---
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 Name Role Phone PP Unavailable CCM Unavailable Summary Purpose Interface Exchange Insurance Providers Payer name Policy type / Coverage type Covered republican ID Effective Begin Date Effective End Date WPS Medicare Part B Medicare Part B [id number] 2017 Unknown [employer] [place] Medicare Part B [id number] 2017 Unknown Family history Father Diagnosis Age At Onset Hyperlipidemia Unknown Heart Attack Unknown Mother Diagnosis Age At Onset Arthritis Unknown Social History Social History Element Codes Description Effective Dates Marital status Unknown M arried Nathan 09/30/2016 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 Number of children Unknown 3 01/22/[address]: 603674638 Never smoker 01/22/[address]: 814740402 Never drinks alcohol 01/22/2015 Allergies, Adverse Reactions, Alerts Substance Reaction Codes Entered Date Inactivated Date Status * NO KNOWN DRUG ORIN RGIES Unknown 01/22/2015 No Inactive Date Active Past Medical History Illness Codes Condition Status Onset Date Resolved Date Mixed hyperlipidemia ICD-9: 272.4 ICD-10: E78.2 Active 06/09/2015 Unknown Hypothyroidism, unsp ecified ICD-9: 244.9 ICD-10: E03.9 Active 05/27/2017 Unknown 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 ICD-9: V58.61 ICD-10: [...] 780.79 ICD-10: R53.83 Active 08/20/2016 Unknown Other [facility] (cur rent) drug therapy ICD-9: V58.69 ICD-10: [...] ICD-9: 244.9 ICD-10: E03.9 05/27/2017 Active 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 ICD-9: V58.61 ICD-10: [...] ICD-9: 780.79 ICD-10: R53.83 08/20/2016 Active Other [facility] (cur rent) drug therapy ICD-9: V58.69 ICD-10: [...] E R 20 mEq tablet,extended release RxNorm: 225863 Tablet(s) TAKE ONE TABLET BY MOUTH DAILY 02/13/2019 05/13/2019 Active Coumadin 4 mg tablet RxNorm: 850534 TAKE TWO TABLETS BY MOUTH DAILY 02/13/2019 08/11/2019 Ac tive omeprazole 20 mg cap sean,delayed release RxNorm: 163952 TAKE ONE CAPSULE BY M OUTH TWICE A DAY 02/03/2019 07/26/2020 Active sodium bicarbonate 6 50 mg tablet RxNorm: 691300 TAKE TWO TABLETS BY M OUTH TWICE A DAY 02/03/2019 07/02/2019 Ac tive potassium chloride E R 20 mEq tablet,extended release RxNorm: 130026 TAKE ONE TABLET BY MOUTH DAILY 01/19/2019 02/12/2019 Inactive Carafate 1 gram tablet RxNorm: 669209 TAKE ONE TABLET BY MOUTH BEFORE MEALS AN D AT BEDTIME 12/30/2018 02/19/2019 Active Carafate 1 gram tablet RxNorm: 030757 TAKE ONE TABLET BY MOUTH BEFORE MEALS AN D AT BEDTIME 12/12/2018 12/29/2018 Inactive mupirocin 2 % topica l ointment RxNorm: 288871 1 Application TOP TID 12/08/2018 12/17/2018 Inactive mupirocin 2 % topica l ointment RxNorm: 663250 1 Application TOP TID 12/08/2018 12/07/2018 Inactive allopurinol 300 mg t ablet RxNorm: 385205 TAKE ONE TABLET BY MO UTH DAILY 11/22/2018 03/21/2019 Ac tive clonazepam 0.5 mg ta blet RxNorm: 402130 1 Tablet(s) PO BID 11/16/2018 04/14/2019 Active Carafate 1 gram tablet RxNorm: 157279 TAKE ONE TABLET BY MOUTH BEFORE MEALS AN D AT BEDTIME 11/15/2018 12/10/2018 Inactive atenolol 100 mg tablet RxNorm: 662149 TAKE ONE TABLET BY MOUTH DAILY 10/24/2018 05/21/2019 Ac tive potassium chloride E R 20 mEq tablet,extended release RxNorm: 680386 2 Tablet(s) PO daily 10/18/2018 02/13/2019 Inactive potassium chloride E R 20 mEq tablet,extended release RxNorm: 813355 1 Tablet(s) PO daily 10/03/2018 10/17/2018 Inactive Carafate 1 gram tablet RxNorm: 581992 TAKE ONE TABLET BY MOUTH BEFORE MEALS AN D AT BEDTIME 09/26/2018 11/14/2018 Inactive Plavix 75 mg tablet RxNorm: 011801 TAKE ONE TABLET BY MOUTH DAILY 09/02/2018 02/28/2019 Ac tive prednisone 10 mg tablet RxNorm: 294838 Tablet(s) PO 09/02/2018 No Stop Date Active 60,60,50,50,40,40,30,30,20,20,10,10 Synthroid 125 mcg ta blet RxNorm: 610125 1 Tablet(s) PO daily 09/02/2018 08/27/2019 Active potassium chloride E R 20 mEq tablet,extended release RxNorm: 018204 1 Tablet(s) PO daily 09/02/2018 09/01/2018 Inactive potassium chloride E R 20 mEq tablet,extended release RxNorm: 500442 1 Tablet(s) PO daily 09/02/2018 10/02/2018 Inactive Synthroid 125 mcg ta blet RxNorm: 018169 1 Tablet(s) PO daily 09/02/2018 09/01/2018 Inactive Keflex 500 mg capsule RxNorm: 861595 1 Capsule(s) PO TID 09/02/2018 09/08/2018 Inactive Kenalog 40 mg/mL maxine pension for injection RxNorm: 5523711 Milliliter(s) Inj 09/02/2018 09/02/2018 In active Lipitor 40 mg tablet RxNorm: 435142 TAKE ONE TABLET BY MOUTH DAILY 07/29/2018 07/23/2019 Ac tive Coumadin 1 mg tablet RxNorm: 987945 TAKE ONE TABLET BY MOUTH DAILY 07/29/2018 10/26/2018 In active Carafate 1 gram tablet RxNorm: 113140 TAKE ONE TABLET BY MOUTH BEFORE MEALS AN D AT BEDTIME 07/28/2018 09/17/2018 Inactive Coumadin 4 mg tablet RxNorm: 519999 2 Tablet(s) daily 07/11/2018 02/05/2019 Inactive Gene andre For:COUMADIN 4MG 07/22/2017 8:58:26 AM Coumadin 5 mg tablet RxNorm: 610089 Tablet(s) TAKE 1 TABLET BY MOUTH DIRE CTED 07/08/2018 01/03/2019 Inactive Generic For:COUMADIN 5MG TAB 03/21/2018 9:13:00 AM Coumadin 4 mg tablet RxNorm: 922928 Tablet(s) TAKE 1 TABLET BY MOUTH THREE T IMES PER WEEK (WEDNESDAY, WEDNESDAY AND WEDNESDAY) 07/08/2018 07/10/2018 Inactive Gene andre For:COUMADIN 4MG 07/22/2017 8:58:26 AM Coumadin 1 mg tablet RxNorm: 552899 1 Tablet(s) PO daily 07/08/2018 08/06/2018 Inactive venlafaxine ER 75 mg capsule,extended release 24 hr RxNorm: 350112 Capsule(s) TAKE 1 CAPSULE BY MOUTH ONCE DAILY 06/23/2018 06/17/2019 Active Generic For:*EFFEXOR XR 75MG 06/19/2017 12:23:45 PM sodium bicarbonate 6 50 mg tablet RxNorm: 049261 Tablet(s) TAKE 2 TABL ETS BY MOUTH TWICE DAILY 06/23/2018 12/19/2018 Inactive 12/20/2017 9:10:59 AM Coumadin 1 mg tablet RxNorm: 633824 1 Tablet(s) PO daily 06/17/2018 07/07/2018 Inactive Coumadin 1 mg tablet RxNorm: 806801 1 Tablet(s) PO daily 06/17/2018 06/16/2018 Inactive clonazepam 0.5 mg ta blet RxNorm: 450916 1 Tablet(s) PO BID 06/08/2018 11/03/2018 Inactive spironolactone 25 mg tablet RxNorm: 006242 TAKE 1 TABLET BY MOUT H EVERY DAY 05/18/2018 05/12/2019 Ac tive Generic For:*ALDACTONE 25MG 05/18/2018 8:57:50 AM Carafate 1 gram tablet RxNorm: 573268 TAKE ONE TABLET BY MOUTH BEFORE MEALS AN D AT BEDTIME 05/18/2018 07/12/2018 Inactive Generic For:CARAFATE 1GM 1 07/18/2017 8:38:28 AM Synthroid 137 mcg ta blet RxNorm: 563338 TAKE 1 TABLET BY MOUT H ONCE DAILY 05/18/2018 08/30/2018 In active Generic For:SYNTHROID 137MCG TAB 2017 8:57:54 AM allopurinol 300 mg t ablet RxNorm: 938519 TAKE 1 TABLET BY MOUT H ONCE DAILY. 04/18/2018 10/14/2018 In active Generic For:ZYLOPRIM 300 MG TABLET 03/22 9:13:47 AM Lasix 20 mg tablet RxNorm: 863741 TAKE ONE TABLET BY MOUTH DAILY 04/18/2018 08/15/2018 In active Generic For:LASIX 20MG 04/18/2018 9:13: 50 AM Carafate 1 gram tablet RxNorm: 283941 TAKE ONE TABLET BY MOUTH BEFORE MEALS AN D AT BEDTIME 04/18/2018 05/17/2018 Inactive Generic For:CARAFATE 1GM 1 9:32:51 AM Coumadin 5 mg tablet RxNorm: 254539 TAKE 1 TABLET BY MOUTH DIRECTED 03/21/2018 07/07/2018 In active Generic For:COUMADIN 5MG TAB 03/21/2018 9:13:00 AM Carafate 1 gram tablet RxNorm: 772687 TAKE ONE TABLET BY MOUTH BEFORE MEALS AN D AT BEDTIME 03/21/2018 04/17/2018 Inactive Generic For:CARAFATE 1GM 1 9:14:24 AM Carafate 1 gram tablet RxNorm: 853554 1 Tablet(s) PO AC & HS 02/17/2018 03/20/2018 Inactive atenolol 100 mg tablet RxNorm: 736343 1 Tablet(s) PO daily 02/04/2018 09/01/2018 Inactive atenolol 50 mg tablet RxNorm: 371912 1 Tablet(s) PO daily 02/03/2018 02/03/2018 Inactive omeprazole 20 mg cap sean,delayed release RxNorm: 145853 1 Capsule(s) BID 01/21/2018 01/15/2019 In active Generic For:PRILOSEC 20MG 07/22/2017 8:5 8:20 AM Carafate 1 gram tablet RxNorm: 151125 1 Tablet(s) PO AC & HS 01/21/2018 02/16/2018 Inactive Carafate 1 gram tablet RxNorm: 934957 1 Tablet(s) PO AC & HS 01/18/2018 01/20/2018 Inactive Carafate 1 gram tablet RxNorm: 302973 1 Tablet(s) PO AC & HS 01/18/2018 02/27/2018 Inactive Carafate 1 gram tablet RxNorm: 553694 1 Tablet(s) PO AC & HS TAKE ONE TABLET B Y MOUTH TWICE DAILY 01/18/2018 05/17/2018 Inactive Generic For:CARAFATE 1GM 0 12/20/2017 9:10:56 AM omeprazole 20 mg cap sean,delayed release RxNorm: 496993 Capsule(s) TAKE 1 CAP SEAN BY MOUTH EVERY DAY 01/17/2018 01/20/2018 Inactive Generic For:PRILOSEC 20MG 0 07/22/2017 8:58:20 AM omeprazole 20 mg cap sean,delayed release RxNorm: 683866 Capsule(s) TAKE 1 CAP SEAN BY MOUTH EVERY DAY 01/14/2018 01/16/2018 Inactive Generic For:PRILOSEC 20MG 07/22/2017 8:58:20 AM clonazepam 0.5 mg ta blet RxNorm: 466229 1 Tablet(s) PO BID 01/07/2018 06/05/2018 Inactive Plavix 75 mg tablet RxNorm: 527553 1 Tablet(s) PO daily 01/07/2018 07/05/2018 Inactive Carafate 1 gram tablet RxNorm: 567202 1 Tablet(s) PO AC & HS 01/04/2018 01/17/2018 Inactive Lasix 20 mg tablet RxNorm: 411147 TAKE ONE TABLET BY MOUTH DAILY 12/20/2017 04/17/2018 In active Generic For:LASIX 20MG 12/20/2017 9:11: 03 AM sodium bicarbonate 6 50 mg tablet RxNorm: 946677 TAKE 2 TABLETS BY JAVON TH TWICE DAILY 12/20/2017 06/17/2018 In active 12/20/2017 9:10:59 AM Carafate 1 gram tablet RxNorm: 732379 TAKE ONE TABLET BY MOUTH TWICE DAILY 12/20/2017 01/17/2018 In active Generic For:CARAFATE 1GM 12/20/2017 9:1 0:56 AM Synthroid 137 mcg ta blet RxNorm: 675315 TAKE 1 TABLET BY MOUT H ONCE DAILY 11/19/2017 05/17/2018 In active Generic For:SYNTHROID 137MCG TAB 2017 8:58:04 AM Detrol LA 4 mg capsu le,extended release RxNorm: 311494 TAKE 1 CAPSULE BY JAVON TH ONCE DAILY 10/20/2017 04/13/2018 Inactive Generic For:DETROL LA 4MG C AP 10/20/2017 9:01:56 AM allopurinol 300 mg t ablet RxNorm: 749154 TAKE 1 TABLET BY MOUT H ONCE DAILY. 10/20/2017 04/17/2018 In active Generic For:ZYLOPRIM 300 MG TABLET 07/2017 9:01:59 AM Coumadin 5 mg tablet RxNorm: 413289 1 Tablet(s) PO UD 10/01/2017 03/20/2018 Inactive cyclobenzaprine 5 mg tablet RxNorm: 987634 1 Tablet(s) PO TID as needed myscle spasm 09/23/2017 10/12/2017 Inactive Lipitor 40 mg tablet RxNorm: 923579 TAKE 1 TABLET BY MOUTH ONCE DAILY 09/20/2017 07/28/2018 In active Generic For:LIPITOR 40MG 09/20/2017 8:5 6:04 AM atenolol 100 mg tablet RxNorm: 262388 1 Tablet(s) PO daily 08/30/2017 02/03/2018 Inactive atenolol 50 mg tablet RxNorm: 797585 1 Tablet(s) PO daily 08/30/2017 08/30/2017 Inactive Lovenox 30 mg/0.3 mL subcutaneous syringe RxNorm: 557451 0.3 Milliliter(s) SQ Q12H 08/24/2017 09/06/2017 In active Lasix 20 mg tablet RxNorm: 917103 TAKE ONE TABLET BY MOUTH DAILY 08/23/2017 12/19/2017 In active Generic For:LASIX 20MG 08/21/2017 9:04: 27 AM Synthroid 137 mcg ta blet RxNorm: 064354 TAKE 1 TABLET BY MOUT H ONCE DAILY 08/23/2017 11/18/2017 In active Generic For:SYNTHROID 137MCG TAB 2017 9:04:30 AM Lovenox 30 mg/0.3 mL subcutaneous syringe RxNorm: 802405 0.3 Milliliter(s) SQ Q12H 08/10/2017 08/23/2017 In active clonazepam 0.5 mg ta blet RxNorm: 675639 1 Tablet(s) PO BID 08/04/2017 12/30/2017 Inactive omeprazole 20 mg cap sean,delayed release RxNorm: 598508 TAKE 1 CAPSULE BY JAVON TH EVERY DAY 07/22/2017 01/13/2018 Inactive Generic For:PRILOSEC 20MG 07/22/2017 8: 58:20 AM Coumadin 4 mg tablet RxNorm: 684664 TAKE 1 TABLET BY MOUTH THREE TIMES PER [facility] [place] (WEDNESDAY, WEDNESDAY AND WEDNESDAY) 07/22/2017 10/03/2018 Inactive Generic For:COUMADIN 4MG 07/22/2017 8:58:26 AM Coumadin 4 mg tablet RxNorm: 367298 TAKE 1 TABLET BY MOUTH THREE TIMES PER [facility] [facility] [facility] [place] (WEDNESDAY, WEDNESDAY AND WEDNESDAY) 07/22/2017 02/16/2018 Inactive Generic For:COUMADIN 4MG 07/22/2017 8:58:26 AM sodium bicarbonate 6 50 mg tablet RxNorm: 655498 TAKE 2 TABLETS BY JAVON TH TWICE DAILY 06/22/2017 12/18/2017 In active 06/19/2017 12:23:30 PM venlafaxine ER 75 mg capsule,extended release 24 hr RxNorm: 098607 TAKE 1 CAPSULE BY MOUTH ONCE DAILY 06/22/2017 06/16/2018 Inactive Generic For:*EFFEXOR XR 75M G 06/19/2017 12:23:45 PM Coumadin 5 mg tablet RxNorm: 720168 1 Tablet(s) PO UD 06/01/2017 09/30/2017 Inactive Keflex 500 mg capsule RxNorm: 007269 1 Capsule(s) PO TID 05/27/2017 06/02/2017 Inactive Synthroid 137 mcg ta blet RxNorm: 340911 TAKE 1 TABLET BY MOUT H ONCE DAILY 05/24/2017 08/21/2017 In active Generic For:SYNTHROID 137MCG TAB 2016 8:55:59 AM Carafate 1 gram tablet RxNorm: 258278 TAKE ONE TABLET BY MOUTH TWICE DAILY 05/24/2017 12/19/2017 In active Generic For:CARAFATE 1GM 05/24/2017 8:5 5:54 AM spironolactone 25 mg tablet RxNorm: 659073 1 Tablet(s) PO daily 05/24/2017 05/17/2018 Inactive Detrol LA 4 mg capsu le,extended release RxNorm: 279854 1 Capsule(s) PO daily TAKE 1 CAPSULE BY MOUTH ONCE DAILY 05/10/2017 10/19/2017 Inactive Generic For:DETROL LA 4MG CAP 02/19/2017 2:36:00 PM Lasix 20 mg tablet RxNorm: 657650 TAKE ONE TABLET BY MOUTH DAILY 04/23/2017 08/20/2017 In active Generic For:LASIX 20MG 04/23/2017 9:04: 01 AM Coumadin 4 mg tablet RxNorm: 780785 TAKE 1 TABLET BY MOUTH THREE TIMES PER [facility] [facility] [facility] [place] (WEDNESDAY, WEDNESDAY AND WEDNESDAY) 04/23/2017 07/21/2017 Inactive Generic For:COUMADIN 4MG 04/23/2017 9:04:05 AM allopurinol 300 mg t ablet RxNorm: 755056 TAKE 1 TABLET BY MOUT H ONCE DAILY. 04/23/2017 10/19/2017 In active Generic For:ZYLOPRIM 300 MG TABLET 08/2016 9:03:57 AM potassium chloride 2 0 mEq/15 mL oral liquid RxNorm: 477363 Milliliter(s) 30 Milliliter(s) (40mEq) PO daily 03/24/2017 07/21/2017 Inactive Lovenox 30 mg/0.3 mL subcutaneous syringe RxNorm: 562271 0.3 Milliliter(s) SQ Q12H 03/22/2017 03/26/2017 In active Lovenox 30 mg/0.3 mL subcutaneous syringe RxNorm: 166020 0.3 Milliliter(s) SQ Q12H 03/19/2017 03/20/2017 In active Lovenox 30 mg/0.3 mL subcutaneous syringe RxNorm: 124840 0.3 Milliliter(s) SQ Q12H 03/16/2017 03/18/2017 In active clonazepam 0.5 mg ta blet RxNorm: 052734 1 Tablet(s) PO BID 03/02/2017 10/03/2018 Inactive Lovenox 30 mg/0.3 mL subcutaneous syringe RxNorm: 595369 1 injection SQ BID do NOT take the night time dose the day before surgery, or the morning dose the day of surgery 03/01/2017 03/07/2017 Inactive Lovenox 30 mg/0.3 mL subcutaneous syringe RxNorm: 392782 1 injection SQ BID 03/01/2017 02/28/2017 In active Detrol LA 4 mg capsu le,extended release RxNorm: 842176 TAKE 1 CAPSULE BY JAVON TH ONCE DAILY 02/19/2017 05/09/2017 Inactive Generic For:DETROL LA 4MG C AP 02/19/2017 2:36:00 PM hydrocodone 5 mg-humberto taminophen 325 mg tablet RxNorm: 675474 1-2 Tablet(s) PO Q6 P RN 02/04/2017 No Stop Date Active Zetia 10 mg tablet RxNorm: 790308 TAKE 1 TABLET BY MOUTH DAILY 01/25/2017 04/13/2018 Inactive 01/23/2017 9:03:48 AM omeprazole 20 mg cap sean,delayed release RxNorm: 705184 TAKE 1 CAPSULE BY JAVON TH EVERY DAY 01/25/2017 07/21/2017 Inactive Generic For:PRILOSEC 20MG 01/23/2017 9: 03:45 AM Coumadin 4 mg tablet RxNorm: 616595 TAKE 1 TABLET BY MOUTH THREE TIMES PER [facility] [facility] [facility] [place] (WEDNESDAY, WEDNESDAY AND WEDNESDAY) 01/25/2017 04/22/2017 Inactive Generic For:COUMADIN 4MG 01/23/2017 9:03:51 AM sodium bicarbonate 6 50 mg tablet RxNorm: 375491 TAKE 2 TABLETS BY JAVON TH TWICE DAILY 12/24/2016 06/21/2017 In active 12/24/2016 9:09:27 AM Lasix 20 mg tablet RxNorm: 880639 1 Tablet(s) PO daily 12/24/2016 04/22/2017 Inactive Synthroid 137 mcg ta blet RxNorm: 587723 TAKE 1 TABLET BY MOUT H ONCE DAILY 11/24/2016 05/22/2017 In active Generic For:SYNTHROID 137MCG TAB 2016 9:04:37 AM Coumadin 4 mg tablet RxNorm: 662469 TAKE 1 TABLET BY MOUTH THREE TIMES PER [facility] [facility] [facility] [place] (WEDNESDAY, WEDNESDAY AND WEDNESDAY) 11/24/2016 01/22/2017 Inactive Generic For:COUMADIN 4MG 11/24/2016 9:04:41 AM hydrocodone 5 mg-humberto taminophen 325 mg tablet RxNorm: 435893 1-2 Tablet(s) PO Q6 P RN 11/17/2016 02/03/2017 In active Carafate 1 gram tablet RxNorm: 183276 TAKE ONE TABLET BY MOUTH TWICE DAILY 10/27/2016 05/23/2017 In active Generic For:CARAFATE 1GM 10/26/2016 8:3 9:42 AM allopurinol 300 mg t ablet RxNorm: 797516 Tablet(s) TAKE 1 TABL ET BY MOUTH ONCE DAILY. 10/26/2016 04/22/2017 Inactive Lipitor 40 mg tablet RxNorm: 912030 1 Tablet(s) PO daily 09/25/2016 09/19/2017 Inactive Coumadin 4 mg tablet RxNorm: 210642 TAKE 1 TABLET BY MOUTH THREE TIMES PER [facility] [place] (WEDNESDAY, WEDNESDAY AND WEDNESDAY) 09/25/2016 11/23/2016 Inactive Generic For:COUMADIN 4MG 09/25/2016 8:55:58 AM Zetia 10 mg tablet RxNorm: 969388 1 Tablet(s) PO daily 09/25/2016 01/22/2017 Inactive gave 1 month of samples clonazepam 0.5 mg ta blet RxNorm: 722303 1 Tablet(s) PO BID 09/21/2016 10/03/2018 Inactive Lasix 20 mg tablet RxNorm: 981980 1 Tablet(s) PO daily 09/15/2016 12/23/2016 Inactive potassium chloride 2 0 mEq/15 mL oral liquid RxNorm: 468313 Milliliter(s) 30 Milliliter(s) (40mEq) PO daily 09/15/2016 01/12/2017 Inactive Lasix 20 mg tablet RxNorm: 669188 2 Tablet(s) PO daily 09/10/2016 09/12/2016 Inactive Lasix 20 mg tablet RxNorm: 447026 1 Tablet(s) PO daily 08/28/2016 08/30/2016 Inactive Lasix 20 mg tablet RxNorm: 101494 1 Tablet(s) PO daily 08/20/2016 08/22/2016 Inactive Detrol LA 4 mg capsu le,extended release RxNorm: 771147 TAKE 1 CAPSULE BY JAVON ONCE DAILY 07/27/2016 02/18/2017 Inactive Generic For:DETROL LA 4MG C AP 07/27/2016 9:08:27 AM Coumadin 4 mg tablet RxNorm: 709946 1 Tablet(s) PO 3 x week tue and sun 07/27/2016 09/24/2016 In active omeprazole 20 mg cap sean,delayed release RxNorm: 715028 Capsule(s) PO TAKE 1 CAPSULE BY MOUTH ONCE DAILY 07/27/2016 01/22/2017 Inactive venlafaxine ER 75 mg capsule,extended release 24 hr RxNorm: 097858 1 Capsule(s) PO daily 06/29/2016 06/21/2017 Inactive sodium bicarbonate 6 50 mg tablet RxNorm: 241868 TAKE 2 TABLETS BY [facility] TWICE DAILY 06/29/2016 12/23/2016 In active 06/27/2016 9:05:39 AM Coumadin 4 mg tablet RxNorm: 657633 1 Tablet(s) PO 3 x week [facility] 06/09/2016 06/08/2016 In active Coumadin 4 mg tablet RxNorm: 297768 1 Tablet(s) PO 3 x week [facility] and [facility] 06/09/2016 07/26/2016 In active Zetia 10 mg tablet RxNorm: 264938 1 Tablet(s) PO daily 06/09/2016 06/08/2016 Inactive gave 1 month of samples Zetia 10 mg tablet RxNorm: 489826 1 Tablet(s) PO daily 06/09/2016 09/24/2016 Inactive gave 1 month of samples Effexor 75 mg tablet RxNorm: 041375 1 Tablet(s) PO daily 06/08/2016 06/28/2016 Inactive spironolactone 25 mg tablet RxNorm: 728325 1 Tablet(s) PO daily 06/08/2016 05/23/2017 Inactive Synthroid 137 mcg ta blet RxNorm: 285444 1 Tablet(s) PO daily 05/07/2016 11/02/2016 Inactive allopurinol 300 mg t ablet RxNorm: 875410 Tablet(s) TAKE 1 TABL ET BY MOUTH ONCE DAILY. 04/28/2016 10/24/2016 Inactive clonazepam 0.5 mg ta blet RxNorm: 456111 1 Tablet(s) PO BID 04/20/2016 10/03/2018 Inactive Flonase Allergy Reli ef 50 mcg/actuation nasal spray,suspension RxNorm: 2296188 1 [place] NASAL BID 04/02/2016 No Stop Date Active Zithromax Z-Thomas 250 mg tablet RxNorm: 032837 Tablet(s) PO 04/02/2016 08/27/2016 Inactive cetirizine 10 mg tablet RxNorm: 8319227 1 Tablet(s) PO daily 04/02/2016 05/01/2016 Inactive Carafate 1 gram tablet RxNorm: 176888 Tablet(s) TAKE 1 TABLET TWICE A DAY FOR 30 DAYS 03/30/2016 10/25/2016 Inactive Generic For:CARAFATE 1GM 02/08/2015 12:3 6:39 PM Plavix 75 mg tablet RxNorm: 042111 1 Tablet(s) PO daily 03/11/2016 09/06/2016 Inactive sodium bicarbonate 6 50 mg tablet RxNorm: 489503 Tablet(s) 2 Tablet(s) PO BID 02/28/2016 06/26/2016 In active omeprazole 20 mg cap sean,delayed release RxNorm: 316881 Capsule(s) PO TAKE 1 CAPSULE BY MOUTH ONCE DAILY 01/31/2016 07/26/2016 Inactive Fish Oil 1,000 mg ca psule RxNorm: 1 Capsule(s) PO BID 01/14/2016 No Stop Date Active Synthroid 137 mcg ta blet RxNorm: 002190 1 Tablet(s) PO daily 01/14/2016 05/06/2016 Inactive Detrol LA 4 mg capsu le,extended release RxNorm: 795250 TAKE 1 CAPSULE BY JAVON TH ONCE DAILY 12/30/2015 07/26/2016 Inactive Generic For:DETROL LA 4MG C AP 12/30/2015 9:11:01 AM potassium chloride 2 0 mEq/15 mL oral liquid RxNorm: 137745 Milliliter(s) 30 Milliliter(s) (40mEq) PO daily 12/02/2015 03/30/2016 Inactive sodium bicarbonate 6 50 mg tablet RxNorm: 609231 Tablet(s) 2 Tablet(s) PO BID 10/31/2015 02/27/2016 In active Lipitor 40 mg tablet RxNorm: 803903 1 Tablet(s) PO daily 10/09/2015 09/24/2016 Inactive sodium bicarbonate 6 50 mg tablet RxNorm: 710796 2 Tablet(s) PO BID 10/01/2015 10/30/2015 Inactive allopurinol 300 mg t ablet RxNorm: 123680 TAKE 1 TABLET BY MOUT H ONCE DAILY. 10/01/2015 04/27/2016 In active Generic For:ZYLOPRIM 300 MG TABLET 09/19 9:21:15 AM clonazepam 0.5 mg ta blet RxNorm: 771404 1 Tablet(s) PO BID 09/30/2015 04/19/2016 Inactive Coumadin 5 mg tablet RxNorm: 815279 1 Tablet(s) PO daily 09/27/2015 05/31/2017 Inactive Generic For:COUMADIN 5MG TAB N O T I C E PRESCRIPTION PREVIOUSLY AUTHORIZED BY DOCTOR:BOBBY ZULETA Synthroid 125 mcg ta blet RxNorm: 930612 1 Tablet(s) PO daily 09/27/2015 09/26/2015 Inactive Synthroid 125 mcg ta blet RxNorm: 658784 1 Tablet(s) PO daily 09/27/2015 01/13/2016 Inactive Carafate 1 gram tablet RxNorm: 691255 Tablet(s) TAKE 1 TABLET TWICE A DAY FOR 30 DAYS 09/02/2015 03/29/2016 Inactive Generic For:CARAFATE 1GM 02/08/2015 12:3 6:39 PM sodium bicarbonate 6 50 mg tablet RxNorm: 951230 2 Tablet(s) PO BID 09/02/2015 09/30/2015 Inactive Prilosec 20 mg capsu le,delayed release RxNorm: 405922 TAKE 1 CAPSULE BY JAVON TH ONCE DAILY 08/02/2015 01/28/2016 Inactive Generic For:PRILOSEC 20MG 08/02/2015 10:03:09 AM N O T I C E PRESCRIPTION PREVIOUSLY AUTHORIZED BY DOCTOR:BOBBY ZULETA Zyrtec 10 mg capsule RxNorm: 1065456 1 Capsule(s) PO daily 07/15/2015 08/13/2015 Inactive Keflex 500 mg capsule RxNorm: 801362 1 Capsule(s) PO TID 07/15/2015 07/21/2015 Inactive cetirizine 10 mg cap sean RxNorm: 6457480 1 Capsule(s) PO daily 07/15/2015 08/13/2015 Inactive hydrocodone 5 mg-humberto taminophen 325 mg tablet RxNorm: 940793 1-2 Tablet(s) PO Q6 P RN 06/10/2015 11/16/2016 In active sodium bicarbonate 6 50 mg tablet RxNorm: 175634 2 Tablet(s) PO BID 06/03/2015 08/31/2015 Inactive Detrol LA 4 mg capsu le,extended release RxNorm: 703241 TAKE 1 CAPSULE BY JAVON TH ONCE DAILY 06/03/2015 12/29/2015 Inactive Generic For:DETROL LA 4MG C AP N O T I C E PRESCRIPTION PREVIOUSLY AUTHORIZED BY DOCTOR:BOBBY ZULETA atenolol 50 mg tablet RxNorm: 066063 1 Tablet(s) PO daily TAKE 1 TABLET BY MO UTH DAILY 05/07/2015 08/23/2017 Inactive Generic For:TENORMIN 50MG 05/04/2015 9:07:22 AM spironolactone 25 mg tablet RxNorm: 887077 1 Tablet(s) PO daily 05/06/2015 06/07/2016 Inactive venlafaxine ER 75 mg capsule,extended release 24 hr RxNorm: 543087 1 Capsule(s) PO daily 05/04/2015 06/28/2016 Inactive atenolol 50 mg tablet RxNorm: 001451 TAKE 1 TABLET BY MOUTH DAILY 05/04/2015 05/06/2015 Inactive Generic For:TENORMIN 50MG 05/04/2015 9: 07:22 AM Synthroid 150 mcg ta blet RxNorm: 704502 TAKE 1 TABLET BY MOUT H ONCE DAILY. 04/05/2015 09/26/2015 In active Generic For:SYNTHROID 150MCG TAB 2014 4:45:40 PM N O T I C E PRESCRIPTION PREVIOUSLY AUTHORIZED BY DOCTOR:BOBBY ZULETA Effexor 75 mg tablet RxNorm: 309484 1 Tablet(s) PO daily 04/05/2015 07/03/2015 Inactive Coumadin 5 mg tablet RxNorm: 422434 TAKE 1 AND 1/2 TABLETS BY MOUTH ONCE MYRANDA LY 04/04/2015 09/26/2015 In active Generic For:COUMADIN 5MG TAB N O T I C E PRESCRIPTION PREVIOUSLY AUTHORIZED BY DOCTOR:BOBBY ZULETA clonazepam 0.5 mg ta blet RxNorm: 855338 1 Tablet(s) PO BID 03/13/2015 11/05/2015 Inactive sodium bicarbonate 6 50 mg tablet RxNorm: 232696 2 Tablet(s) PO BID 03/08/2015 06/02/2015 Inactive allopurinol 300 mg t ablet RxNorm: 986053 TAKE 1 TABLET BY MOUT H ONCE DAILY. 03/05/2015 09/30/2015 In active N O T I C E PRESCRIPTION PREVIOUSLY A UTHORIZED BY DOCTOR:BOBBY ZULETA Plavix 75 mg tablet RxNorm: 414709 1 Tablet(s) PO daily 02/12/2015 09/09/2015 Inactive clonazepam 0.5 mg ta blet RxNorm: 379923 1 Tablet(s) PO BID 02/11/2015 03/11/2015 Inactive Carafate 1 gram tablet RxNorm: 010143 TAKE 1 TABLET TWICE A DAY FOR 30 DAYS 02/08/2015 02/07/2015 In active Generic For:CARAFATE 1GM 02/08/2015 12:3 6:39 PM Carafate 1 gram tablet RxNorm: 589170 Tablet(s) TAKE 1 TABLET TWICE A DAY FOR 30 DAYS 02/08/2015 09/01/2015 Inactive Generic For:CARAFATE 1GM 02/08/2015 12:3 6:39 PM potassium chloride 2 0 mEq/15 mL oral liquid RxNorm: 026902 30 Milliliter(s) (40m Eq) PO daily 02/05/2015 12/01/2015 Inactive atenolol 50 mg tablet RxNorm: 518558 1 Tablet(s) PO daily 02/04/2015 05/03/2015 Inactive [SAVINGS FOR NON-COVERED DRUGS -- BIN:00 [id number], PCN: [id number], Group: XXXXX, ID# [id number], Questions: . THIS IS NOT INSURANCE.] potassium chloride 2 0 mEq/15 mL oral liquid RxNorm: 902400 30 Milliliter(s) (40m Eq) PO daily 01/08/2015 02/04/2015 Inactive potassium chloride 2 0 mEq/15 mL oral liquid RxNorm: 215524 30 Milliliter(s) (40m Eq) PO daily 12/07/2014 01/07/2015 Inactive atenolol 50 mg tablet RxNorm: 751497 1 Tablet(s) PO daily 11/09/2014 11/08/2014 Inactive atenolol 50 mg tablet RxNorm: 450358 1 Tablet(s) PO daily 11/09/2014 02/03/2015 Inactive [SAVINGS FOR NON-COVERED DRUGS -- BIN:00 3585, PCN: ASPROD1, Group: XXXXX, ID# XXXXXXX, Questions: . THIS IS NOT INSURANCE.] Voltaren 1 % topical gel RxNorm: 532279 TOP No St art Date Active verapamil ER (HS) 24 0 mg tablet,extended release 24 hr RxNorm: 559094 1 Tablet(s) PO daily No Start Date Active aspirin 81 mg tablet RxNorm: 859114 1 Tablet(s) PO daily No Start Date Active Zofran 4 mg tablet RxNorm: 948033 1 Tablet(s) PO PRN No Start Date Active B12 1000 mcg RxNorm: 1 Tablet(s) PO daily No Start Date Active magnesium oxide 400 mg capsule RxNorm: 802798 2 Capsule(s) PO BID No Start Date Active Synthroid 150 mcg ta blet RxNorm: 580190 1 Tablet(s) PO daily No Start Date 04/04/2015 Inactive Coumadin 5 mg tablet RxNorm: 340232 1 Tablet(s) PO daily No Start Date 04/03/2015 Inactive cranberry 1,000 mg c apsule RxNorm: 600134 1 Capsule(s) PO daily No Start Date 04/13/2018 Inactive allopurinol 300 mg t ablet RxNorm: 894311 1 Tablet(s) PO daily No Start Date 03/04/2015 Inactive Prilosec 20 mg capsu le,delayed release RxNorm: 356167 1 Capsule(s) PO PRN No Start Date 08/01/2015 Inactive potassium chloride 2 0 mEq/15 mL oral liquid RxNorm: 900711 30 Milliliter(s) (40m Eq) PO daily No Start Date 12/06/2014 Inactive atenolol 50 mg tablet RxNorm: 474456 1 Tablet(s) PO daily No Start Date 08/29/2017 Inactive Lipitor 40 mg tablet RxNorm: 077380 1 Tablet(s) PO daily No Start Date 09/19/2017 Inactive Effexor 75 mg tablet RxNorm: 116348 1 Tablet(s) PO daily No Start Date 04/04/2015 Inactive Carafate 1 gram tablet RxNorm: 497197 1 Tablet(s) PO BID No Start Date 02/07/2015 Inactive clonazepam 0.5 mg ta blet RxNorm: 572217 1 Tablet(s) PO BID No Start Date 02/10/2015 Inactive Plavix 75 mg tablet RxNorm: 754691 1 Tablet(s) PO daily No Start Date 02/11/2015 Inactive sodium bicarbonate 6 50 mg tablet RxNorm: 078769 2 Tablet(s) PO BID No Start Date 09/01/2015 Inactive Lovenox 30 mg/0.3 mL subcutaneous syringe RxNorm: 289611 0.3 Milliliter(s) SQ Q12H No Start Date 03/15/2017 Inactive Fish Oil 1,000 mg ca psule RxNorm: 1 Capsule(s) PO daily No Start Date 01/13/2016 Inactive Detrol LA 4 mg capsu le,extended release RxNorm: 262482 1 Capsule(s) PO daily No Start Date 06/02/2015 Inactive Medication Administered Medication Codes Instruc tions Start Date Status Kenalog 40 mg/mL suspension for injection RxNorm: 3823061 Milliliter 09/02/2018 No longer Active Immunizations Vaccine Codes Date Status SHINGARIX CVX: 121 03/23 completed Assessments Condition Codes Effectiv e Dates Mixed hyperlipidemia ICD-10: E78.2 ICD-9: 272.4 10/05/2018 Other acute sinusitis ICD-10: J01.80 ICD-9: 461.8 09/02/2018 Other allergic rhinitis ICD-10: J30. 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 ICD-10: Z79.01 ICD-9: [...] fatigue ICD-10: R53.83 ICD-9: 780.79 08/20/2016 Other mcc (current) drug therapy ICD-10: Z79.899 ICD-9: V58.69 [...] Code Item Item Code Result Date Pt Ddw1949 PT 27.4 seconds 01/27/2019 Pt Kqr6385 INR 2.6 01/27/2019 Pt Hfj8826 Low Intensity - 1.5-2.0 01/27/2019 Pt Yab3738 Mod intensity - 2.0-3.0 01/27/2019 Pt Zkl1013 Hi intensity - 3.0-4.0 01/27/2019 Pt Ppu8014 PT 21.8 seconds 12/15/2018 Pt Bds0585 INR 2.0 12/15/2018 Pt Yit7230 Low Intensity - 1.5-2.0 12/15/2018 Pt Xfd5027 Mod intensity - 2.0-3.0 12/15/2018 Pt Mzd9425 Hi intensity - 3.0-4.0 12/15/2018 Pt Tvz0693 PT 24.4 seconds 12/09/2018 Pt Cns1889 INR 2.2 12/09/2018 Pt Ifc9591 Low Intensity - 1.5-2.0 12/09/2018 Pt Zlj8955 Mod intensity - 2.0-3.0 12/09/2018 Pt Epd3461 Hi intensity - 3.0-4.0 12/09/2018 Pt Wom7114 PT 35.0 seconds 12/01/2018 Pt Omo2964 INR 3.5 12/01/2018 Pt Txq7231 Low Intensity - 1.5-2.0 12/01/2018 Pt Ghq5551 Mod intensity - 2.0-3.0 12/01/2018 Pt Tjq1944 Hi intensity - 3.0-4.0 12/01/2018 Pt Lmd1874 PT 26.3 seconds 10/13/2018 Pt Vrb1018 INR 2.5 10/13/2018 Pt Yov1090 Low Intensity - 1.5-2.0 10/13/2018 Pt Uku2226 Mod intensity - 2.0-3.0 10/13/2018 Pt Deu8438 Hi intensity - 3.0-4.0 10/13/2018 Lipid Ord30 CHOL 180 mg/dL 10/07/2018 Lipid Ord30 HDL 74.0 mg/dl 10/07/2018 Lipid Ord30 TRIG 111 mg/dL 10/07/2018 Lipid Ord30 LDL 84 mg/dL 10/07/2018 Lipid Ord30 C/HDL 2.4 Ratio 10/07/2018 Pt Ghq0573 PT 38.1 seconds 10/07/2018 Pt Jws7696 INR 3.9 10/07/2018 Pt Cve5669 Low Intensity - 1.5-2.0 10/07/2018 Pt Fix3391 Mod intensity - 2.0-3.0 10/07/2018 Pt Awa8314 Hi intensity - 3.0-4.0 10/07/2018 Tsh Ord6 TSH (3rd IS) 0.43 uIU/mL 09/02/2018 Comp Metabolic Rze287 NA 136 mEq/L 09/02/2018 Comp Metabolic Fwf127 K 4.1 mEq/L 09/02/2018 Comp Metabolic Nyd625 CL 103 mEq/L 09/02/2018 Comp Metabolic Day018 CO2 20.0 mEq/L 09/02/2018 Comp Metabolic Kir090 AN ION GAP 17 09/02/2018 Comp Metabolic Zgi233 GL UCOSE 124 mg/dL 09/02/2018 Comp Metabolic Jci848 Cr eat 1.0 mg/dL 09/02/2018 Comp Metabolic Tmy607 eG FR 57 ml/min/1.73m2 09/02 Comp Metabolic Cnm395 BUN 24 mg/dL 09/02/2018 Comp Metabolic Jjm271 B/ C Ratio 23.8 Ratio 09/02/2018 Comp Metabolic Kei999 CA LCIUM 9.5 mg/dL 09/02/2018 Comp Metabolic Cri550 AL K PHOS 64 U/L 09/02/2018 Comp Metabolic Jed905 T(SGOT) 24 U/L 09/02/2018 Comp Metabolic Dnv624 AL T(SGPT) 23 U/L 09/02/2018 Comp Metabolic Led569 BI LI T 0.5 mg/dL 09/02/2018 Comp Metabolic Oqe158 AL BUMIN 4.2 g/dL 09/02/2018 Comp Metabolic Xui041 TP RO 7.4 g/dL 09/02/2018 Comp Metabolic Zbw012 GL OB 3.2 g/dL 09/02/2018 Comp Metabolic Coj562 A/ G Ratio 1.3 Ratio 09/02/2018 Comp Metabolic Jlr882 Os mo 277 mOsmo 09/02/2018 Pt Iad4012 PT 40.6 seconds 09/02/2018 Pt Yyn8629 INR 4.2 09/02/2018 Pt Otu8881 Low Intensity - 1.5-2.0 09/02/2018 Pt Ref0246 Mod intensity - 2.0-3.0 09/02/2018 Pt Maw4892 Hi intensity - 3.0-4.0 09/02/2018 Free T4 Atj989 FREE T4 1.51 ng/dL 09/02/2018 Magnesium Ord90 Mag 1.8 mg/dL 09/02/2018 Pt Ism7714 PT 29.2 seconds 08/05/2018 Pt Lwx5003 INR 2.8 08/05/2018 Pt Nkx9114 Low Intensity - 1.5-2.0 08/05/2018 Pt Pvh0033 Mod intensity - 2.0-3.0 08/05/2018 Pt Rkn3452 Hi intensity - 3.0-4.0 08/05/2018 Pt Rsq3315 PT 30.2 seconds 07/25/2018 Pt Kzl6221 INR 2.9 07/25/2018 Pt Feg6029 Low Intensity - 1.5-2.0 07/25/2018 Pt Xku3602 Mod intensity - 2.0-3.0 07/25/2018 Pt Haw5490 Hi intensity - 3.0-4.0 07/25/2018 Pt Sfs4347 PT 25.2 seconds 07/19/2018 Pt Vxz9598 INR 2.3 07/19/2018 Pt Cxi8320 Low Intensity - 1.5-2.0 07/19/2018 Pt Nao7446 Mod intensity - 2.0-3.0 07/19/2018 Pt Khm3250 Hi intensity - 3.0-4.0 07/19/2018 Pt Fho3157 PT 17.4 seconds 07/15/2018 Pt Dwv0128 INR 1.5 07/15/2018 Pt Pjl3184 Low Intensity - 1.5-2.0 07/15/2018 Pt Wat2485 Mod intensity - 2.0-3.0 07/15/2018 Pt Jso5332 Hi intensity - 3.0-4.0 07/15/2018 Pt Pda3442 PT 17.8 seconds 07/08/2018 Pt Gml7916 INR 1.5 07/08/2018 Pt Hnb8346 Low Intensity - 1.5-2.0 07/08/2018 Pt Gcs3167 Mod intensity - 2.0-3.0 07/08/2018 Pt Jhh0778 Hi intensity - 3.0-4.0 07/08/2018 Pt Ymv3443 PT 19.2 seconds 07/01/2018 Pt Nvc0842 INR 1.7 07/01/2018 Pt Caj6436 Low Intensity - 1.5-2.0 07/01/2018 Pt Iff8243 Mod intensity - 2.0-3.0 07/01/2018 Pt Aoz7655 Hi intensity - 3.0-4.0 07/01/2018 Pt Chr8416 PT 17.4 seconds 06/23/2018 Pt Lqo5353 INR 1.5 06/23/2018 Pt Nar9290 Low Intensity - 1.5-2.0 06/23/2018 Pt Bpq8695 Mod intensity - 2.0-3.0 06/23/2018 Pt Yio9545 Hi intensity - 3.0-4.0 06/23/2018 Pt Hnv5966 PT 18.4 seconds 06/17/2018 Pt Orj3557 INR 1.6 06/17/2018 Pt Kog2642 Low Intensity - 1.5-2.0 06/17/2018 Pt Uog1530 Mod intensity - 2.0-3.0 06/17/2018 Pt Wbr7489 Hi intensity - 3.0-4.0 06/17/2018 Sed Rate [...] 30.4 pg 06/08/2018 Cbc With Differential Ord2 Titus% 9.4 % 06/08/2018 Cbc With Differential Ord2 [...] 1.20 K/ul 06/08/2018 Cbc With Differential Ord2 Titus ABS# 0.5 K/ul 06/08/2018 Cbc With Differential Ord2 Eos ABS# 0.1 K/ul 06/08/2018 Cbc With Differential Ord2 Baso ABS# 0.1 K/ul 06/08/2018 C-Reactive Protein Qnt Crqnt CRP 0.1 mg/dl 06/08/2018 Pt Xbb0717 PT 17.6 seconds 06/08/2018 Pt Lqt7839 INR 1.5 06/08/2018 Pt Nkz4194 Low Intensity - 1.5-2.0 06/08/2018 Pt Lay4355 Mod intensity - 2.0-3.0 06/08/2018 Pt Mri6518 Hi intensity - 3.0-4.0 06/08/2018 Pt Wkc1148 PT 16.8 seconds 05/10/2018 Pt Jzl9089 INR 1.4 05/10/2018 Pt Kkm0754 Low Intensity - 1.5-2.0 05/10/2018 Pt Ocm0462 Mod intensity - 2.0-3.0 05/10/2018 Pt Hsj5749 Hi intensity - 3.0-4.0 05/10/2018 Pt Cxn8170 PT 16.7 seconds 05/04/2018 Pt Szj6992 INR 1.4 05/04/2018 Pt Iaj4107 Low Intensity - 1.5-2.0 05/04/2018 Pt Afr1610 Mod intensity - 2.0-3.0 05/04/2018 Pt Rjq3371 Hi intensity - 3.0-4.0 05/04/2018 Free T4 Ycm212 FREE T4 1.09 ng/dL 04/14/2018 Tsh Ord6 TSH (3rd IS) 2.36 uIU/mL 04/14/2018 Pt Ask8718 PT 20.3 seconds 04/14/2018 Pt Kvt3573 INR 1.8 04/14/2018 Pt Kmt7719 Low Intensity - 1.5-2.0 04/14/2018 Pt Rxn2241 Mod intensity - 2.0-3.0 04/14/2018 Pt Ong4892 Hi intensity - 3.0-4.0 04/14/2018 Lipid Ord30 CHOL 149 mg/dL 04/14/2018 Lipid Ord30 HDL 49.0 mg/dl 04/14/2018 Lipid Ord30 TRIG 161 mg/dL 04/14/2018 Lipid Ord30 LDL 68 mg/dL 04/14/2018 Lipid Ord30 C/HDL 3.0 Ratio 04/14/2018 %Hba1C Zvf264 % HbA1c 44337-3 5.9 % 04/14/2018 %Hba1C Lsi323 Gluc Ave 123 mg/dL 04/14/2018 Comp Metabolic Fag469 NA 140 mEq/L 04/14/2018 Comp Metabolic Bgq482 K 4.1 mEq/L 04/14/2018 Comp Metabolic Pox070 CL 105 mEq/L 04/14/2018 Comp Metabolic Iax214 CO2 28.0 mEq/L 04/14/2018 Comp Metabolic Nrv602 AN ION GAP 11 04/14/2018 Comp Metabolic Bgq072 GL UCOSE 112 mg/dL 04/14/2018 Comp Metabolic Msh745 Cr eat 1.0 mg/dL 04/14/2018 Comp Metabolic Ayh402 eG FR 58 ml/min/1.73m2 04/14 Comp Metabolic Uep446 BUN 20 mg/dL 04/14/2018 Comp Metabolic Oou991 B/ C Ratio 20.2 Ratio 04/14/2018 Comp Metabolic Oih785 CA LCIUM 10.0 mg/dL 04/14/2018 Comp Metabolic Aey105 AL K PHOS 51 U/L 04/14/2018 Comp Metabolic Nqh660 T(SGOT) 24 U/L 04/14/2018 Comp Metabolic Obx073 AL T(SGPT) 21 U/L 04/14/2018 Comp Metabolic Krz008 BI LI T 0.8 mg/dL 04/14/2018 Comp Metabolic Aam229 AL BUMIN 4.2 g/dL 04/14/2018 Comp Metabolic Ovf762 TP RO 7.1 g/dL 04/14/2018 Comp Metabolic Wtm879 GL OB 2.9 g/dL 04/14/2018 Comp Metabolic Tit969 A/ G Ratio 1.5 Ratio 04/14/2018 Comp Metabolic Lll347 Os mo 283 mOsmo 04/14/2018 Cbc With [...] 30.7 pg 04/14/2018 Cbc With Differential Ord2 Titus% 10.6 % 04/14/2018 Cbc With Differential Ord2 [...] 1.18 K/ul 04/14/2018 Cbc With Differential Ord2 Titus ABS# 0.5 K/ul 04/14/2018 Cbc With Differential Ord2 Eos ABS# 0.2 K/ul 04/14/2018 Cbc With Differential Ord2 Baso ABS# 0.1 K/ul 04/14/2018 Pt Mji5727 PT 29.3 seconds 02/11/2018 Pt Lnj9792 INR 2.8 02/11/2018 Pt Vsx7240 Low Intensity - 1.5-2.0 02/11/2018 Pt Nbz6915 Mod intensity - 2.0-3.0 02/11/2018 Pt Lch8502 Hi intensity - 3.0-4.0 02/11/2018 Comp Metabolic Lzz911 NA 141 mEq/L 01/05/2018 Comp Metabolic Qko642 K 3.7 mEq/L 01/05/2018 Comp Metabolic Uck349 CL 102 mEq/L 01/05/2018 Comp Metabolic Wqq870 CO2 29.0 mEq/L 01/05/2018 Comp Metabolic Mwl086 AN ION GAP 14 01/05/2018 Comp Metabolic Moe078 GL UCOSE 136 mg/dL 01/05/2018 Comp Metabolic Lcp113 Cr eat 1.0 mg/dL 01/05/2018 Comp Metabolic Jgv713 eG FR 61 ml/min/1.73m2 01/05 Comp Metabolic Fnp297 BUN 22 mg/dL 01/05/2018 Comp Metabolic Eeb355 B/ C Ratio 22.9 Ratio 01/05/2018 Comp Metabolic Pre473 CA LCIUM 9.7 mg/dL 01/05/2018 Comp Metabolic Bgv964 AL K PHOS 57 U/L 01/05/2018 Comp Metabolic Cah155 T(SGOT) 21 U/L 01/05/2018 Comp Metabolic Hnd679 AL T(SGPT) 19 U/L 01/05/2018 Comp Metabolic Udn289 BI LI T 0.9 mg/dL 01/05/2018 Comp Metabolic Frt024 AL BUMIN 4.1 g/dL 01/05/2018 Comp Metabolic Cnn320 TP RO 7.1 g/dL 01/05/2018 Comp Metabolic Rhe188 GL OB 3.0 g/dL 01/05/2018 Comp Metabolic Kzu520 A/ G Ratio 1.4 Ratio 01/05/2018 Comp Metabolic Vsx527 Os mo 287 mOsmo 01/05/2018 Free T4 Quk120 FREE T4 1.05 ng/dL 01/05/2018 %Hba1C Mjz073 % HbA1c 36309-9 6.0 % 01/05/2018 %Hba1C Pgm524 Gluc Ave 126 mg/dL 01/05/2018 Cbc With [...] 30.6 pg 01/05/2018 Cbc With Differential Ord2 Titus% 10.5 % 01/05/2018 Cbc With Differential Ord2 [...] 1.27 K/ul 01/05/2018 Cbc With Differential Ord2 Titus ABS# 0.5 K/ul 01/05/2018 Cbc With Differential Ord2 Eos ABS# 0.2 K/ul 01/05/2018 Cbc With Differential Ord2 Baso ABS# 0.1 K/ul 01/05/2018 Pt Onb3179 PT 20.7 seconds 01/05/2018 Pt Dtd0039 INR 1.8 01/05/2018 Pt Gmg0824 Low Intensity - 1.5-2.0 01/05/2018 Pt Nxk6131 Mod intensity - 2.0-3.0 01/05/2018 Pt Xdu3646 Hi intensity - 3.0-4.0 01/05/2018 Tsh Ord6 TSH (3rd IS) 2.34 uIU/mL 01/05/2018 Lipid Ord30 CHOL 156 mg/dL 01/05/2018 Lipid Ord30 HDL 48.0 mg/dl 01/05/2018 Lipid Ord30 TRIG 207 mg/dL 01/05/2018 Lipid Ord30 LDL 67 mg/dL 01/05/2018 Lipid Ord30 C/HDL 3.3 Ratio 01/05/2018 Pt Wfv7680 PT 28.3 seconds 11/26/2017 Pt Jng2206 INR 2.6 11/26/2017 Pt Smt1497 Low Intensity - 1.5-2.0 11/26/2017 Pt Shs6571 Mod intensity - 2.0-3.0 11/26/2017 Pt Psx1721 Hi intensity - 3.0-4.0 11/26/2017 Pt Cnm9930 PT 36.5 seconds 11/19/2017 Pt Aqx1512 INR 3.6 11/19/2017 Pt Orl7450 Low Intensity - 1.5-2.0 11/19/2017 Pt Olb5035 Mod intensity - 2.0-3.0 11/19/2017 Pt Cpa9270 Hi intensity - 3.0-4.0 11/19/2017 Pt Kjd7160 PT 22.9 seconds 10/15/2017 Pt Wtp5759 INR 2.0 10/15/2017 Pt Qqt4004 Low Intensity - 1.5-2.0 10/15/2017 Pt Xvp3743 Mod intensity - 2.0-3.0 10/15/2017 Pt Lvc6581 Hi intensity - 3.0-4.0 10/15/2017 Pt Cwu3078 PT 25.9 seconds 10/01/2017 Pt Mkj8438 INR 2.4 10/01/2017 Pt Uvp2211 Low Intensity - 1.5-2.0 10/01/2017 Pt Vgr9133 Mod intensity - 2.0-3.0 10/01/2017 Pt Coy2228 Hi intensity - 3.0-4.0 10/01/2017 Pt Zww5479 PT 20.6 seconds 09/24/2017 Pt Uwp0536 INR 1.8 09/24/2017 Pt Wgp8018 Low Intensity - 1.5-2.0 09/24/2017 Pt Ekp5099 Mod intensity - 2.0-3.0 09/24/2017 Pt Lom1655 Hi intensity - 3.0-4.0 09/24/2017 Pt Tyt3622 PT 21.0 seconds 09/15/2017 Pt Cuf9740 INR 1.8 09/15/2017 Pt Sef3381 Low Intensity - 1.5-2.0 09/15/2017 Pt Hzs1822 Mod intensity - 2.0-3.0 09/15/2017 Pt Vvd5058 Hi intensity - 3.0-4.0 09/15/2017 Pt Vsq4938 PT 19.0 seconds 09/03/2017 Pt Xxz3122 INR 1.6 09/03/2017 Pt Hon0042 Low Intensity - 1.5-2.0 09/03/2017 Pt Nqf2763 Mod intensity - 2.0-3.0 09/03/2017 Pt Htr6504 Hi intensity - 3.0-4.0 09/03/2017 Pt Mgt1193 PT 17.6 seconds 08/23/2017 Pt Fiu9420 INR 1.5 08/23/2017 Pt Yvh9099 Low Intensity - 1.5-2.0 08/23/2017 Pt Fae2691 Mod intensity - 2.0-3.0 08/23/2017 Pt Ccf5765 Hi intensity - 3.0-4.0 08/23/2017 Pt Zct8276 PT 12.7 seconds 08/20/2017 Pt Iyn2060 INR 1.0 08/20/2017 Pt Nul8746 Low Intensity - 1.5-2.0 08/20/2017 Pt Vsj0675 Mod intensity - 2.0-3.0 08/20/2017 Pt Skt2159 Hi intensity - 3.0-4.0 08/20/2017 Pt Hfo8738 PT 12.9 seconds 08/17/2017 Pt Zlj5823 INR 1.0 08/17/2017 Pt Zek1445 Low Intensity - 1.5-2.0 08/17/2017 Pt Wrj0486 Mod intensity - 2.0-3.0 08/17/2017 Pt Taw7782 Hi intensity - 3.0-4.0 08/17/2017 Pt Gqe2016 PT 18.5 seconds 08/10/2017 Pt Nlb4865 INR 1.6 08/10/2017 Pt Iyq5980 Low Intensity - 1.5-2.0 08/10/2017 Pt Nid4943 Mod intensity - 2.0-3.0 08/10/2017 Pt Iln2315 Hi intensity - 3.0-4.0 08/10/2017 Tsh Ord6 [...] 29.3 pg 05/27/2017 Cbc With Differential Ord2 Titus% 8.1 % 05/27/2017 Cbc With Differential Ord2 [...] 1.11 K/ul 05/27/2017 Cbc With Differential Ord2 Titus ABS# 0.6 K/ul 05/27/2017 Cbc With Differential Ord2 Eos ABS# 0.2 K/ul 05/27/2017 Cbc With Differential Ord2 Baso ABS# 0.1 K/ul 05/27/2017 Pt Xgb3487 PT 28.2 seconds 05/27/2017 Pt Ony8441 INR 2.6 05/27/2017 Pt Aaj5627 Low Intensity - 1.5-2.0 05/27/2017 Pt Wqs3476 Mod intensity - 2.0-3.0 05/27/2017 Pt Jxr3318 Hi intensity - 3.0-4.0 05/27/2017 Lipid Ord30 CHOL 167 mg/dL 05/27/2017 Lipid Ord30 HDL 49.0 mg/dl 05/27/2017 Lipid Ord30 TRIG 347 mg/dL 05/27/2017 Lipid Ord30 LDL 49 mg/dL 05/27/2017 Lipid Ord30 C/HDL 3.4 Ratio 05/27/2017 Magnesium Ord90 Mag 1.4 mg/dL 05/27/2017 %Hba1C Mch563 % HbA1c 29824-9 5.9 % 05/27/2017 %Hba1C Sll584 Gluc Ave 123 mg/dL 05/27/2017 Comp Metabolic Gjc175 NA 138 mEq/L 05/27/2017 Comp Metabolic Iaf176 K 4.1 mEq/L 05/27/2017 Comp Metabolic Drc867 CL 101 mEq/L 05/27/2017 Comp Metabolic Bsh784 CO2 31.0 mEq/L 05/27/2017 Comp Metabolic Ifg921 AN ION GAP 10 05/27/2017 Comp Metabolic Vlb448 GL UCOSE 117 mg/dL 05/27/2017 Comp Metabolic Xzv500 Cr eat 0.9 mg/dL 05/27/2017 Comp Metabolic Rln335 eG FR 62 ml/min/1.73m2 05/27 Comp Metabolic Qpd893 BUN 25 mg/dL 05/27/2017 Comp Metabolic Rrg130 B/ C Ratio 26.6 Ratio 05/27/2017 Comp Metabolic Ezs309 CA LCIUM 9.5 mg/dL 05/27/2017 Comp Metabolic Xal614 AL K PHOS 73 U/L 05/27/2017 Comp Metabolic Pyv063 T(SGOT) 18 U/L 05/27/2017 Comp Metabolic Wgw148 AL T(SGPT) 12 U/L 05/27/2017 Comp Metabolic Efe758 BI LI T 0.5 mg/dL 05/27/2017 Comp Metabolic Dfp120 AL BUMIN 4.1 g/dL 05/27/2017 Comp Metabolic Ekl825 TP RO 7.1 g/dL 05/27/2017 Comp Metabolic Etd270 GL OB 3.0 g/dL 05/27/2017 Comp Metabolic Axj383 A/ G Ratio 1.3 Ratio 05/27/2017 Comp Metabolic Ymr228 Os mo 281 mOsmo 05/27/2017 Free T4 Bwj646 FREE T4 0.91 ng/dL 05/27/2017 Pt Wnb3823 PT 29.2 seconds 04/16/2017 Pt Lli3560 INR 2.7 04/16/2017 Pt Rbv1687 Low Intensity - 1.5-2.0 04/16/2017 Pt Whm6883 Mod intensity - 2.0-3.0 04/16/2017 Pt Dpv4911 Hi intensity - 3.0-4.0 04/16/2017 Pt Jvu8145 PT 30.7 seconds 03/31/2017 Pt Xlk7544 INR 2.9 03/31/2017 Pt Vll5770 Low Intensity - 1.5-2.0 03/31/2017 Pt Imm9707 Mod intensity - 2.0-3.0 03/31/2017 Pt Jxv6018 Hi intensity - 3.0-4.0 03/31/2017 Pt Hvw7568 PT 21.3 seconds 03/26/2017 Pt Npm7669 INR 1.9 03/26/2017 Pt Syf7807 Low Intensity - 1.5-2.0 03/26/2017 Pt Aky7358 Mod intensity - 2.0-3.0 03/26/2017 Pt Mex9193 Hi intensity - 3.0-4.0 03/26/2017 Pt Eak7633 PT 19.8 seconds 03/22/2017 Pt Fha0596 INR 1.7 03/22/2017 Pt Wag1198 Low Intensity - 1.5-2.0 03/22/2017 Pt Egq1511 Mod intensity - 2.0-3.0 03/22/2017 Pt Ztf5019 Hi intensity - 3.0-4.0 03/22/2017 Pt Xsb3428 PT 15.6 seconds 03/19/2017 Pt Guv8488 INR 1.3 03/19/2017 Pt Dhu5281 Low Intensity - 1.5-2.0 03/19/2017 Pt Dxc9367 Mod intensity - 2.0-3.0 03/19/2017 Pt Xpb8293 Hi intensity - 3.0-4.0 03/19/2017 Pt Anr3566 PT 13.7 seconds 03/15/2017 Pt Uvk0617 INR 1.1 03/15/2017 Pt Sgw9342 Low Intensity - 1.5-2.0 03/15/2017 Pt Ham3801 Mod intensity - 2.0-3.0 03/15/2017 Pt Xtk5200 Hi intensity - 3.0-4.0 03/15/2017 Pt Mnl2001 PT 25.8 seconds 01/28/2017 Pt Xby9046 INR 2.4 01/28/2017 Pt Gzd2503 Low Intensity - 1.5-2.0 01/28/2017 Pt Xpp6147 Mod intensity - 2.0-3.0 01/28/2017 Pt Tli4614 Hi intensity - 3.0-4.0 01/28/2017 %Hba1C Lgr613 % HbA1c 30396-9 6.4 % 10/23/2016 %Hba1C Oxm014 Gluc Ave 137 mg/dL 10/23/2016 Comp Metabolic Dht922 NA 138 mEq/L 10/23/2016 Comp Metabolic Okq745 K 3.4 mEq/L 10/23/2016 Comp Metabolic Gle557 CL 100 mEq/L 10/23/2016 Comp Metabolic Pwn183 CO2 30.0 mEq/L 10/23/2016 Comp Metabolic Trp289 AN ION GAP 11 10/23/2016 Comp Metabolic Xkk270 GL UCOSE 139 mg/dL 10/23/2016 Comp Metabolic Hab324 Cr eat 0.9 mg/dL 10/23/2016 Comp Metabolic Xay239 eG FR 62 ml/min/1.73m2 10/23 Comp Metabolic Nog016 BUN 22 mg/dL 10/23/2016 Comp Metabolic Ffi740 B/ C Ratio 23.4 Ratio 10/23/2016 Comp Metabolic Bdj383 CA LCIUM 8.7 mg/dL 10/23/2016 Comp Metabolic Doj211 AL K PHOS 66 U/L 10/23/2016 Comp Metabolic Zax862 T(SGOT) 20 U/L 10/23/2016 Comp Metabolic Qnh352 AL T(SGPT) 10 U/L 10/23/2016 Comp Metabolic Xmg480 BI LI T 0.5 mg/dL 10/23/2016 Comp Metabolic Rqv574 AL BUMIN 3.5 g/dL 10/23/2016 Comp Metabolic Irg253 TP RO 6.3 g/dL 10/23/2016 Comp Metabolic Avq277 GL OB 2.8 g/dL 10/23/2016 Comp Metabolic Zar372 A/ G Ratio 1.3 Ratio 10/23/2016 Comp Metabolic Xqu484 Os mo 281 mOsmo 10/23/2016 Pt Noz1626 PT 26.8 seconds 10/23/2016 Pt Vjr4455 INR 2.7 10/23/2016 Pt Dkt7446 Low Intensity - 1.5-2.0 10/23/2016 Pt Yki4645 Mod intensity - 2.0-3.0 10/23/2016 Pt Qsh6188 Hi intensity - 3.0-4.0 10/23/2016 Pt Mkz0807 PT 28.3 seconds 09/25/2016 Pt Eha7790 INR 2.8 09/25/2016 Pt Wpj6102 Low Intensity - 1.5-2.0 09/25/2016 Pt Rwn2912 Mod intensity - 2.0-3.0 09/25/2016 Pt Mrt4302 Hi intensity - 3.0-4.0 09/25/2016 Metabolic Ord15 [...] Metabolic Ord15 CALCIUM 8.8 mg/dL 09/25/2016 Pt Ymw5381 PT 30.6 seconds 09/11/2016 Pt Ykl8617 INR 3.2 09/11/2016 Pt Rhk4842 Low Intensity - 1.5-2.0 09/11/2016 Pt Ffn3644 Mod intensity - 2.0-3.0 09/11/2016 Pt Fwm4185 Hi intensity - 3.0-4.0 09/11/2016 Comp Metabolic Lic329 NA 138 mEq/L 09/11/2016 Comp Metabolic Ixa349 K 4.4 mEq/L 09/11/2016 Comp Metabolic Zoy852 CL 103 mEq/L 09/11/2016 Comp Metabolic Prc867 CO2 31.0 mEq/L 09/11/2016 Comp Metabolic Qtx938 AN ION GAP 8 09/11/2016 Comp Metabolic Qbr492 GL UCOSE 146 mg/dL 09/11/2016 Comp Metabolic Ozv085 Cr eat 1.0 mg/dL 09/11/2016 Comp Metabolic Szv478 eG FR 60 ml/min/1.73m2 09/11 Comp Metabolic Iny249 BUN 16 mg/dL 09/11/2016 Comp Metabolic Gfh464 B/ C Ratio 16.5 Ratio 09/11/2016 Comp Metabolic Uff204 CA LCIUM 8.7 mg/dL 09/11/2016 Comp Metabolic Rcp313 AL K PHOS 52 U/L 09/11/2016 Comp Metabolic Wyg385 T(SGOT) 19 U/L 09/11/2016 Comp Metabolic Xcp142 AL T(SGPT) 11 U/L 09/11/2016 Comp Metabolic Rct728 BI LI T 0.7 mg/dL 09/11/2016 Comp Metabolic Vdk175 AL BUMIN 3.3 g/dL 09/11/2016 Comp Metabolic Mrt719 TP RO 5.8 g/dL 09/11/2016 Comp Metabolic Lcm879 GL OB 2.5 g/dL 09/11/2016 Comp Metabolic Vvg605 A/ G Ratio 1.3 Ratio 09/11/2016 Comp Metabolic Wtf642 Os mo 280 mOsmo 09/11/2016 C-Reactive Protein Qnt Crqnt CRP 0.1 mg/dl 08/21/2016 Comp Metabolic Hnd703 NA 139 mEq/L 08/21/2016 Comp Metabolic Iql066 K 4.1 mEq/L 08/21/2016 Comp Metabolic Imb882 CL 102 mEq/L 08/21/2016 Comp Metabolic Wuw387 CO2 30.0 mEq/L 08/21/2016 Comp Metabolic Rij776 AN ION GAP 11 08/21/2016 Comp Metabolic Ity046 GL UCOSE 148 mg/dL 08/21/2016 Comp Metabolic Gwc935 Cr eat 1.0 mg/dL 08/21/2016 Comp Metabolic Sbo985 eG FR 55 ml/min/1.73m2 08/21 Comp Metabolic Ary872 BUN 21 mg/dL 08/21/2016 Comp Metabolic Qzr572 B/ C Ratio 20.2 Ratio 08/21/2016 Comp Metabolic Ujp535 CA LCIUM 9.4 mg/dL 08/21/2016 Comp Metabolic Xba676 AL K PHOS 63 U/L 08/21/2016 Comp Metabolic Fjx056 T(SGOT) 23 U/L 08/21/2016 Comp Metabolic Xlw580 AL T(SGPT) 16 U/L 08/21/2016 Comp Metabolic Hxj490 BI LI T 0.6 mg/dL 08/21/2016 Comp Metabolic Mnw553 AL BUMIN 3.9 g/dL 08/21/2016 Comp Metabolic Cto865 TP RO 6.8 g/dL 08/21/2016 Comp Metabolic Iaj624 GL OB 2.9 g/dL 08/21/2016 Comp Metabolic Xsd529 A/ G Ratio 1.4 Ratio 08/21/2016 Comp Metabolic Mhq899 Os mo 283 mOsmo 08/21/2016 Sed Rate Ord21 ESR 16 mm/hr 08/21/2016 Pt Pvk8402 PT 27.2 seconds 08/21/2016 Pt Jmc1002 INR 2.7 08/21/2016 Pt Cey8001 Low Intensity - 1.5-2.0 08/21/2016 Pt Hih1902 Mod intensity - 2.0-3.0 08/21/2016 Pt Vge1566 Hi intensity - 3.0-4.0 08/21/2016 Magnesium Ord90 Mag 1.9 mg/dL 08/21/2016 Pt Flr1289 PT 25.9 seconds 06/17/2016 Pt Lmq8105 INR 2.5 06/17/2016 Pt Txw0166 Low Intensity - 1.5-2.0 06/17/2016 Pt Dgi6065 Mod intensity - 2.0-3.0 06/17/2016 Pt Nlv7460 Hi intensity - 3.0-4.0 06/17/2016 Tsh Ord6 hTSH II 2.13 uIU/mL 06/08/2016 Free T4 Fat865 FREE T4 0.79 ng/dL 06/08/2016 Cbc With [...] 26.8 pg 06/08/2016 Cbc With Differential Ord2 Titus% 12.0 % 06/08/2016 Cbc With Differential Ord2 [...] 1.40 K/ul 06/08/2016 Cbc With Differential Ord2 Titus ABS# 0.7 K/ul 06/08/2016 Cbc With Differential Ord2 Eos ABS# 0.3 K/ul 06/08/2016 Cbc With Differential Ord2 Baso ABS# 0.1 K/ul 06/08/2016 %Hba1C Zsg642 % HbA1c 36826-1 6.2 % 06/08/2016 %Hba1C Irh909 Gluc Ave 131 mg/dL 06/08/2016 Comp Metabolic Rzu271 NA 138 mEq/L 06/08/2016 Comp Metabolic Lqi518 K 3.9 mEq/L 06/08/2016 Comp Metabolic Urb955 CL 105 mEq/L 06/08/2016 Comp Metabolic Vwo309 CO2 27.0 mEq/L 06/08/2016 Comp Metabolic Drz281 AN ION GAP 10 06/08/2016 Comp Metabolic Phi444 GL UCOSE 127 mg/dL 06/08/2016 Comp Metabolic Ydi097 Cr eat 1.0 mg/dL 06/08/2016 Comp Metabolic Odn829 eG FR 59 ml/min/1.73m2 06/08 Comp Metabolic Igf761 BUN 19 mg/dL 06/08/2016 Comp Metabolic Pqq337 B/ C Ratio 19.4 Ratio 06/08/2016 Comp Metabolic Btc821 CA LCIUM 9.2 mg/dL 06/08/2016 Comp Metabolic Akr474 AL K PHOS 77 U/L 06/08/2016 Comp Metabolic Aji080 T(SGOT) 19 U/L 06/08/2016 Comp Metabolic Ify579 AL T(SGPT) 13 U/L 06/08/2016 Comp Metabolic Rdj755 BI LI T 0.5 mg/dL 06/08/2016 Comp Metabolic Pdu785 AL BUMIN 3.8 g/dL 06/08/2016 Comp Metabolic Fwv591 TP RO 6.6 g/dL 06/08/2016 Comp Metabolic Ndv596 GL OB 2.8 g/dL 06/08/2016 Comp Metabolic Pyg048 A/ G Ratio 1.4 Ratio 06/08/2016 Comp Metabolic Tvc776 Os mo 280 mOsmo 06/08/2016 Pt Jyw6883 PT 36.1 seconds 06/08/2016 Pt Rxt5214 INR 3.9 06/08/2016 Pt Ozf9230 Low Intensity - 1.5-2.0 06/08/2016 Pt Bcq3192 Mod intensity - 2.0-3.0 06/08/2016 Pt Ylw5680 Hi intensity - 3.0-4.0 06/08/2016 Lipid Ord30 CHOL 149 mg/dL 06/08/2016 Lipid Ord30 HDL 46.0 mg/dl 06/08/2016 Lipid Ord30 TRIG 279 mg/dL 06/08/2016 Lipid Ord30 LDL 47 mg/dL 06/08/2016 Lipid Ord30 C/HDL 3.2 Ratio 06/08/2016 Pt Jxz3543 PT 30.9 seconds 02/12/2016 Pt Ntp2736 INR 3.2 02/12/2016 Pt Fxc8826 Low Intensity - 1.5-2.0 02/12/2016 Pt Isu4276 Mod intensity - 2.0-3.0 02/12/2016 Pt Ymf9160 Hi intensity - 3.0-4.0 02/12/2016 Free T4 Ywi139 FREE T4 1.24 ng/dL 09/27/2015 %Hba1C Qfb599 % HbA1c 62044-2 6.4 % 09/27/2015 %Hba1C Tar444 Gluc Ave 137 mg/dL 09/27/2015 Tsh Ord6 hTSH II 0.37 uIU/mL 09/27/2015 Pt Nbz2172 PT 26.2 seconds 09/27/2015 Pt Irk3392 INR 2.5 09/27/2015 Pt Aww3377 Low Intensity - 1.5-2.0 09/27/2015 Pt Enx3104 Mod intensity - 2.0-3.0 09/27/2015 Pt Ixs5148 Hi intensity - 3.0-4.0 09/27/2015 Pt Raa8596 PT 27.6 seconds 2015 Pt Fdb2698 INR 2.7 2015 Pt Wxw1002 Low Intensity - 1.5-2.0 2015 Pt Nvt1397 Mod intensity - 2.0-3.0 2015 Pt Fuq2928 Hi intensity - 3.0-4.0 2015 %Hba1C Qdx843 % HbA1c 62470-4 6.1 % 06/11/2015 %Hba1C Zam372 Gluc Ave 128 mg/dL 06/11/2015 Cbc With [...] Ord2 RDW 15.8 % 06/10/2015 Comp Metabolic Igr854 NA 139 mEq/L 06/10/2015 Comp Metabolic Mui313 K 4.1 mEq/L 06/10/2015 Comp Metabolic Kjh445 CL 105 mEq/L 06/10/2015 Comp Metabolic Qff071 CO2 27.0 mEq/L 06/10/2015 Comp Metabolic Kem332 AN ION GAP 11 06/10/2015 Comp Metabolic Rvh784 GL UCOSE 127 mg/dL 06/10/2015 Comp Metabolic Tdn109 Cr eat 1.0 mg/dL 06/10/2015 Comp Metabolic Hfk439 eG FR 59 ml/min/1.73m2 06/10 Comp Metabolic Rsd833 BUN 21 mg/dL 06/10/2015 Comp Metabolic Wdo613 B/ C Ratio 21.2 Ratio 06/10/2015 Comp Metabolic Cjk103 CA LCIUM 9.2 mg/dL 06/10/2015 Comp Metabolic Trs542 AL K PHOS 87 U/L 06/10/2015 Comp Metabolic Isv621 T(SGOT) 20 U/L 06/10/2015 Comp Metabolic Mph142 AL T(SGPT) 17 U/L 06/10/2015 Comp Metabolic Atp325 BI LI T 0.4 mg/dL 06/10/2015 Comp Metabolic Yax446 AL BUMIN 4.1 g/dL 06/10/2015 Comp Metabolic Qnk946 TP RO 7.2 g/dL 06/10/2015 Comp Metabolic Elk985 GL OB 3.1 g/dL 06/10/2015 Comp Metabolic Ewe166 A/ G Ratio 1.3 Ratio 06/10/2015 Comp Metabolic Fzj783 Os mo 282 mOsmo 06/10/2015 Tsh Ord6 hTSH II 0.86 uIU/mL 06/10/2015 Lipid Ord30 CHOL 161 mg/dL 06/10/2015 Lipid Ord30 HDL 49.0 mg/dl 06/10/2015 Lipid Ord30 TRIG 208 mg/dL 06/10/2015 Lipid Ord30 LDL 70 mg/dL 06/10/2015 Lipid Ord30 C/HDL 3.3 Ratio 06/10/2015 Pt Trd4631 PT 25.0 seconds 04/09/2015 Pt Ufg3040 INR 2.4 04/09/2015 Pt Kug5687 Low Intensity - 1.5-2.0 04/09/2015 Pt Sux2401 Mod intensity - 2.0-3.0 04/09/2015 Pt Qut2487 Hi intensity - 3.0-4.0 04/09/2015 Free T4 Ege519 FREE T4 1.05 ng/dL 01/22/2015 Pt Art1363 PT 27.2 seconds 01/22/2015 Pt Pjw3373 INR 2.6 01/22/2015 Pt Bxr7648 Low Intensity - 1.5-2.0 01/22/2015 Pt Lzj9594 Mod intensity - 2.0-3.0 01/22/2015 Pt Nlc6680 Hi intensity - 3.0-4.0 01/22/2015 Cbc With [...] Differential Ord2 RDW 15.2 % 01/22/2015 B12 Ntq400 B12 402.00 pg/ml 01/22/2015 Tsh Ord6 hTSH II 0.65 uIU/mL 01/22/2015 Lipid Ord30 CHOL 166 mg/dL 01/22/2015 Lipid Ord30 HDL 48.0 mg/dl 01/22/2015 Lipid Ord30 TRIG 264 mg/dL 01/22/2015 Lipid Ord30 LDL 65 mg/dL 01/22/2015 Lipid Ord30 C/HDL 3.5 Ratio 01/22/2015 Comp Metabolic Kei815 NA 138 mEq/L 01/22/2015 Comp Metabolic Qhx374 K 4.1 mEq/L 01/22/2015 Comp Metabolic Biq713 CL 104 mEq/L 01/22/2015 Comp Metabolic Hxa589 CO2 29.0 mEq/L 01/22/2015 Comp Metabolic Kpo083 AN ION GAP 9 01/22/2015 Comp Metabolic Jww903 GL UCOSE 106 mg/dL 01/22/2015 Comp Metabolic Xsn196 Cr eat 0.9 mg/dL 01/22/2015 Comp Metabolic Kfd838 eG FR 63 ml/min/1.73m2 01/22 Comp Metabolic Rgv530 BUN 21 mg/dL 01/22/2015 Comp Metabolic Upb145 B/ C Ratio 22.3 Ratio 01/22/2015 Comp Metabolic Jmd324 CA LCIUM 9.4 mg/dL 01/22/2015 Comp Metabolic Ejb094 AL K PHOS 83 U/L 01/22/2015 Comp Metabolic Ams846 T(SGOT) 23 U/L 01/22/2015 Comp Metabolic Jow604 AL T(SGPT) 18 U/L 01/22/2015 Comp Metabolic Ddt586 BI LI T 0.8 mg/dL 01/22/2015 Comp Metabolic Kqu069 AL BUMIN 4.2 g/dL 01/22/2015 Comp Metabolic Vpe230 TP RO 7.3 g/dL 01/22/2015 Comp Metabolic Fuo735 GL OB 3.1 g/dL 01/22/2015 Comp Metabolic Ksy738 A/ G Ratio 1.4 Ratio 01/22/2015 Comp Metabolic Dao477 Os mo 279 mOsmo 01/22/2015 Review of [...] clear 08/20/2016 None Full Exam - General 1995 Eyes conjunctiva/eyelids Overall: eyelids normal 08/20/2016 None Full Exam - General 1994 Eyes pupils and irises Overall: pupils equal, round, reactive to light and accomodation 08/20/2016 None Full Exam - General 1995 Ears/Nose/Throat lips/teeth/gingiva Overall: benign lips 08/20/2016 None [...] Procedure Codes Date THER/PROPH/DIAG INJ SC/IM CPT-4: 74711 09/02/2018 TRIAMCINOLONE ACET I [place] NOS CPT-4: J3301 09/02/2018 URINALYSIS NONAUTO W /O SCOPE CPT-4: 42192 03/05/2017 Vital Signs Date Vital 09/02/2018 Blood Pressure 1: 128/72 Code: 8480-6 BMI: 38.2 Code: 07518-7 Heart Rate 1: 80 bpm Height: 5'1" SpO2: 98% Weight: 202 lbs 04/14/2018 Blood Pressure 1: 116/78 Code: 8480-6 BMI: 41.6 Code: 47236-7 Heart Rate 1: 72 bpm Height: 5'1" SpO2: 98% Weight: 220 lbs 01/18/2018 Blood Pressure 1: 132/74 Code: 8480-6 BMI: 43.5 Code: 27188-1 Heart Rate 1: 70 bpm Height: 5'1" SpO2: 97% Weight: 230 lbs 01/04/2018 Blood Pressure 1: 134/76 Code: 8480-6 BMI: 42.7 Code: 33183-7 Heart Rate 1: 83 bpm Height: 5'1" SpO2: 98% Weight: 226 lbs 09/23/2017 Blood Pressure 1: 124/76 Code: 8480-6 BMI: 42.3 Code: 97670-1 Heart Rate 1: 94 bpm Height: 5'1" SpO2: 96% Weight: 224 lbs 05/27/2017 Blood Pressure 1: 146/78 Code: 8480-6 BMI: 41.4 Code: 49583-1 Heart Rate 1: 85 bpm Height: 5'1" SpO2: 98% Weight: 219 lbs 02/24/2017 Blood Pressure 1: 138/66 Code: 8480-6 BMI: 41.4 Code: 99343-0 Heart Rate 1: 78 bpm Height: 5'1" SpO2: 97% Weight: 219 lbs 11/02/2016 Blood Pressure 1: 144/72 Code: 8480-6 BMI: 46.1 Code: 02556-6 Heart Rate 1: 78 bpm Height: 5'1" SpO2: 98% Weight: 244 lbs 09/30/2016 Blood Pressure 1: 130/76 Code: 8480-6 BMI: 45.0 Code: 22854-5 Heart Rate 1: 86 bpm Height: 5'1" SpO2: 98% Weight: 238 lbs 09/10/2016 Blood Pressure 1: 136/68 Code: 8480-6 BMI: 46.3 Code: 24391-5 Heart Rate 1: 83 bpm Height: 5'1" SpO2: 98% Weight: 245 lbs 08/20/2016 Blood Pressure 1: 142/78 Code: 8480-6 BMI: 45.3 Code: 80228-0 Heart Rate 1: 84 bpm Height: 5'1" SpO2: 99% Weight: 240 lbs 06/08/2016 Blood Pressure 1: 134/76 Code: 8480-6 BMI: 44.2 Code: 58727-6 Heart Rate 1: 86 bpm Height: 5'1" SpO2: 96% Weight: 234 lbs 04/02/2016 Blood Pressure 1: 142/70 Code: 8480-6 BMI: 44.6 Code: 75888-1 Heart Rate 1: 78 bpm Height: 5'1" SpO2: 97% Weight: 236 lbs 01/14/2016 Blood Pressure 1: 146/72 Code: 8480-6 BMI: 44.2 Code: 67720-4 Heart Rate 1: 86 bpm Height: 5'1" SpO2: 96% Weight: 234 lbs 10/02/2015 Blood Pressure 1: 158/76 Code: 8480-6 BMI: 44.2 Code: 73224-7 Heart Rate 1: 67 bpm Height: 5'1" SpO2: 97% Weight: 234 lbs 07/15/2015 Blood Pressure 1: 200/90 Code: 8480-6 Blood Pressure 1: 148/78 Code: 8480-6 BMI: 44.0 Code: 06914-7 Heart Rate 1: 89 bpm Height: 5'1" SpO2: 97% Weight: 233 lbs 06/10/2015 Blood Pressure 1: 140/82 Code: 8480-6 BMI: 44.0 Code: 72542-5 Heart Rate 1: 78 bpm Height: 5'1" [...] None pre-op/surgery consult Referred by Dr. Sterling Kawn 02/24/2017 None pre-op/surgery consult Pertinent Findings Denies [...] wearing crocs and there was a new greek on the floor: her foot didn't move [...] Encounters Encounter Performer Loca tion Codes Date 80194 EST. PATIENT, LEVEL IV Diagnosis: Other acute sinusitis[ICD10: J01.80] Diagnosis: Other allergic rhinitis[ICD10: J30.89] Nata Almanza MD, [facility] CPT-4: 69482 09/02/2018 [id number] 31055 EST. P ATIENT, LEVEL IV Diagnosis: Essential (primary) hypertension[ICD10: I10] Diagnosis: Hypothyroidism, unspecified[ICD10: E03.9] Diagnosis: Impaired fasting glucose[ICD10: R73.01] Diagnosis: long-term (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[ICD10: Z79.01] Edna Almanza MD, [facility] CPT-4: 81554 04/14/2018 [id number] 74211 EST. P ATIENT, LEVEL III Diagnosis: Localized edema[ICD10: R60.0] Diagnosis: Gastro-esophageal reflux disease without esophagitis[ICD10: K21.9] Edna Almanza MD, [facility] CPT-4: 04528 01/18/2018 [id number]) 03783 EST. P ATIENT, LEVEL IV Diagnosis: Gastro-esophageal reflux disease without esophagitis[ICD10: K21.9] Diagnosis: Localized edema[ICD10: R60.0] Diagnosis: Essential (primary) hypertension[ICD10: I10] Diagnosis: Hypothyroidism, unspecified[ICD10: E03.9] Diagnosis: Impaired fasting glucose[ICD10: R73.01] Edna Almanza MD, [facility] CPT-4: 25531 01/04/2018 ([id number]) 42781 EST. 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 P ATIENT, LEVEL IV Diagnosis: Essential (primary) hypertension[ICD10: I10] Diagnosis: Mixed hyperlipidemia[ICD10: E78.2] Diagnosis: Hypothyroidism, unspecified[ICD10: E03.9] Diagnosis: Impaired fasting glucose[ICD10: R73.01] Diagnosis: long-term (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[ICD10: Z79.01] Edna Almanza MD, [facility] CPT-4: 38641 05/27/2017 65380 EST. PATIENT, LEVEL III Diagnosis: Pain in right hip[ICD10: M25.551] Nata Almanza MD, [facility] CPT-4: 35176 02/24/2017 ([id number]) 09580 EST. P ATIENT, LEVEL IV Diagnosis: Essential (primary) hypertension[ICD10: I10] Diagnosis: Localized edema[ICD10: R60.0] Diagnosis: Pain in right hip[ICD10: M25.551] Sarai Almanza MD, [facility] CPT-4: 71706 11/02/2016 ([id number]) 19191 EST. P ATIENT, LEVEL IV Diagnosis: Essential (primary) hypertension[ICD10: I10] Diagnosis: Localized edema[ICD10: R60.0] Sarai Almanza MD, [facility] CPT-4: 75708 09/30/2016 12690 EST. PATIENT, LEVEL IV Diagnosis: Localized edema[ICD10: R60.0] Diagnosis: Pain in joints of left hand[ICD10: M25.542] Diagnosis: Pain in joints of right hand[ICD10: M25.541] Nata Almanza MD, [facility] CPT-4: 36164 09/10/2016 64141 EST. PATIENT, LEVEL IV Diagnosis: Localized edema[ICD10: R60.0] Diagnosis: Pain in joints of left hand[ICD10: M25.542] Diagnosis: Pain in joints of right hand[ICD10: M25.541] Diagnosis: Other fatigue[ICD10: R53.83] Nata Almanza MD, [facility] CPT-4: 84685 08/20/2016 49800 EST. PATIENT, LEVEL IV Diagnosis: Essential (primary) hypertension[ICD10: I10] Diagnosis: Other mcc (current) drug therapy[ICD10: Z79.899] Diagnosis: Tinnitus, bilateral[ICD10: H93.13] Nata Almanza MD, [facility] CPT-4: 09949 06/08/2016 07397 EST. PATIENT, LEVEL IV Diagnosis: Other allergic rhinitis[ICD10: J30.89] Diagnosis: Acute laryngopharyngitis[ICD10: J06.0] Nata Almanza MD, [facility] CPT-4: 51856 04/02/2016 41817 EST. PATIENT, LEVEL IV Diagnosis: Left upper quadrant pain[ICD10: R10.12] Nata Almanza MD, [facility] CPT-4: 37251 01/14/2016 24249 EST. PATIENT, LEVEL IV Diagnosis: Pain in left shoulder[ICD10: M25.512] Diagnosis: Body mass index (BMI) 40.0-44.9, adult[ICD10: Z68.41] Nata Almanza MD, [facility] CPT-4: 55197 10/02/2015 21426 EST. PATIENT, LEVEL IV Diagnosis: Pain in left leg[ICD10: M79.605] Diagnosis: Other mcc (current) drug therapy[ICD10: Z79.899] Nata Almanza MD, [facility] CPT-4: 64776 07/15/2015 ([id number]) 36198 EST. 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: Other mcc (current) drug therapy[ICD10: Z79.899] [facility] CPT-4: 68137 06/10/2015 ([id number]) [facility] - LEVEL 4 Diagnosis: ESSENTIAL HYPERTENSION[ICD9: 401.9] Diagnosis: HYPOTHYROIDISM[ICD9: 244.9] Diagnosis: ENCNTR LONG-RX USE NEC[ICD9: V58.69] Diagnosis: HYPERLIPIDEMIA[ICD9: 272.4] Diagnosis: Vitamin B12 deficiency[ICD9: 266.2] Diagnosis: Status post gastric surgery[ICD9: V45.89] Diagnosis: Snoring[ICD9: 786.09] [facility] CPT-4: 98131 01/22/2015 Plan of Care Planned Activity Notes [...] allergy spray. 09/02/2018 Appointment: Nata Hsu WPtel: [address] [place], [place] [id number] (15 min) Moderate 09/02/2018 Patient Education: Patient [...] Hgb A1C 04/14/2018 Appointment: Edna Douglas WPtel: [phone] (15 min) Moderate 04/14/2018 Patient Education: Patient [...] to further attempt to reduce peripheral edema. BTKO-iiuxdsfo-vnnuprjp prilosec BID and carafate QID -discussed low spice, low acidic diet 01/18/2018 Appointment: Edna Douglas WPtel: [phone] [phone] (15 min) Moderate 01/18/2018 Patient Education: Patient [...] control. 01/04/2018 Appointment: [phone] [phone] [place] (30 min) Complex 01/04/2018 Patient Education: Patient Medication Summary Completed 01/04/2018 Care Plan: SCREENINGMAMMOGRAPHYDIGITAL LOINC : 47696-1 Pending 01/04/2018 Visit Plan: Abdominal hernia - not able to be taken to surgery by local providers and pt has been seen at [facility] and that surgeon felt like [place] would be better served by Dr. Betancur [...] at home. 09/23/2017 Appointment: Sarai Almanza [facility]Ptel: [phone] [facility] [place] (15 min) Moderate 09/23/2017 Patient Education: [...] medications. 05/27/2017 Appointment: [facility] Douglas [facility]el[phone] [phone] (30 min) Complex 05/27/2017 Patient Education: Patient [...] Palacios. 02/24/2017 Appointment: Nata Hsu [facility]el[phone] [facility] (30 min) Complex 02/24/2017 Patient Education: Patient [...] dr. Chaney. 11/02/2016 Appointment: Sarai Almanza WPtel: [phone] [facility] (15 min) Moderate 11/02/2016 Patient Education: Patient [...] peripheral edema. 09/30/2016 Appointment: Sarai Almanza WPtel: [phone] [facility] (15 min) Moderate 09/30/2016 Patient Education: Patient [...] edema. 09/10/2016 Appointment: Nata Hsu WPtel: [phone] [facility] (30 min) Complex 09/10/2016 Patient Education: Patient [...] peripheral edema. 08/20/2016 Appointment: Nata Hsu WPtel: [facility]4 [facility]66[facility] (30 min) Complex 08/20/2016 Patient Education: Patient Medication Summary Completed 08/20/2016 Referral: Otf Lee [address] Referral Initiated 07/02/2016 Visit Plan: Chronic [...] 06/08/2016 Care Plan: Referral Order SNOMED-CT : [id number] Pending 06/08/2016 Visit Plan: URI - Pt [...] nasal steroid allergy spray. 04/02/2016 Appointment: Nata Hsutel: [phone] [facility] [place] (30 min) Complex 04/02/2016 Patient Education: [...] acute pain 01/14/2016 Appointment: Edna Douglas WPtel: [phone] [place] (30 min) Complex 01/14/2016 Patient Education: Patient Medication Summary Completed 01/14/2016 Patient Education: Obesity Completed 01/14/2016 Care Plan: BMI Above normal followup DAVID F-MGMT EDUC & TRAIN 1 PT Pending 10/24/2015 Care Plan: X-RAY EXAM OF SHOULDER LOINC : 80220-4 Pending 10/24/2015 Visit Plan: Left shoulder pain [...] weight check. 10/02/2015 Appointment: Edna Douglas WPtel: [phone] [phone] [place] (15 min) Moderate 10/02/2015 Patient Education: [...] ses Completed 06/10/2015 Appointment: Sarai Almanza WPtel: [facility] (15 min) Moderate 04/22/2015 Visit Plan: Hypertension [...] have surgical fixation - planning occurring at [facility]. Snoring - Sleep apnea symptoms [...] to medications. 01/22/2015 Appointment: Sarai Almanza WPtel: [address] [place], [place] [phone] [place] (S) New Patient 01/22/2015 Patient Education: Patient Medication Summary Completed 01/22/2015 Patient Education: Hypertension Completed 01/22/2015 Referral: Otf Lee [facility] Referral Initiated Instructions Comment . Chronic Anticoagul ant use - Pt [...] now - Will refer to Dr. Lee steroid shot today prednisone taper - 60mg [...] in the nasal steroid allergy spray. . Abdominal hernia - not able to be taken to surgery by local providers and pt has been seen at [facility] and that surgeon felt like [place] would [...] change in blood pressure readings at home. CONTINUE LASIX NE EDED FOR SWELLING CHECK [...] months based on previous levels of control. REFILL CARAFATE DISCUSSED EGD IF SYMPTOMS PERSIST [...] to further attempt to reduce peripheral edema. PJPM-aksgopvn-gxtpqrqk prilosec BID and carafate QID -discussed low spice, low acidic diet . Edema - pt has bee n advised to elevate legs to prevent dependent edema, compression has been recommended to help to naturally decrease peripheral edema. Diuretic use has been discussed and pt has been instructed in appropriate use of such medication as necessary to further attempt to reduce peripheral edema. . Left shoulder pain - pt states [...] Pt will RTC for weight check. . Hypertension - wel l controlled - [...] may need injection from dr. Chaney. . Hypertension - wel l controlled - [...] assure normal liver response to medications. . URI - Pt advised t o [...] have surgical clearance by Dr. Palacios. . Hypertension - wel l controlled - [...] further attempt to reduce peripheral edema. . Joint complaints, fatigue - will check [...] further attempt to reduce peripheral edema. . right upper quadra nt pain - [...] go to the ER with acute pain XRAY RIGHT SHOULDER CUT BACK ON SODIUM/SALTY [...] INR is between 2.0 and 3.5. . Hypertension - wel l controlled - [...] of control. Elevated blood sugars-check Hgb A1C dr almanza will hav e the staff [...] have surgical fixation - planning occurring at [facility]. Snoring - Sleep apnea symptoms [...] to assure normal liver response to medications. Come in Wednesday to [place] ve PT [...]
--- OUTSIDE RECORDS SUMMARY | 2020-01-16 22:35 | XMS REPORT | CCD ---
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 Name Role Phone PP Unavailable CCM Unavailable Summary Purpose Interface Exchange Insurance Providers Payer name Policy type / Coverage type Covered alliance party ID Effective Begin Date Effective End Date WPS Medicare Part B Medicare Part B [id number] 2017 Unknown [employer] Medicare Part B [id number] 2017 Unknown Family history Father Diagnosis Age At Onset Hyperlipidemia Unknown Heart Attack Unknown Mother Diagnosis Age At Onset Arthritis Unknown Social History Social History Element Codes Description Effective Dates Marital status Unknown M arried Nathan 09/30/2016 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 Number of children Unknown 3 01/22/[address]: 400458901 Never smoker 01/22/[address]: 343288792 Never drinks alcohol 01/22/2015 Allergies, Adverse Reactions, Alerts Substance Reaction Codes Entered Date Inactivated Date Status * NO KNOWN DRUG ORIN RGIES Unknown 01/22/2015 No Inactive Date Active Past Medical History Illness Codes Condition Status Onset Date Resolved Date Mixed hyperlipidemia ICD-9: 272.4 ICD-10: E78.2 Active 06/09/2015 Unknown Hypothyroidism, unsp ecified ICD-9: 244.9 ICD-10: E03.9 Active 05/27/2017 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 ICD-10: [...] 780.79 ICD-10: R53.83 Active 08/20/2016 Unknown Other [facility]p (cur rent) drug therapy ICD-9: V58.69 ICD-10: [...] ecified ICD-9: 244.9 ICD-10: E03.9 05/27/2017 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 ICD-10: [...] ICD-9: 780.79 ICD-10: R53.83 08/20/2016 Active Other [facility] (cur rent) drug therapy ICD-9: V58.69 ICD-10: [...] E R 20 mEq tablet,extended release RxNorm: 355636 Tablet(s) TAKE ONE TABLET BY MOUTH DAILY 02/13/2019 05/13/2019 Active Coumadin 4 mg tablet RxNorm: 306216 TAKE TWO TABLETS BY MOUTH DAILY 02/13/2019 08/11/2019 Ac tive omeprazole 20 mg cap sean,delayed release RxNorm: 749349 TAKE ONE CAPSULE BY M OUTH TWICE A DAY 02/03/2019 07/26/2020 Active sodium bicarbonate 6 50 mg tablet RxNorm: 728673 TAKE TWO TABLETS BY M OUTH TWICE A DAY 02/03/2019 07/02/2019 Ac tive potassium chloride E R 20 mEq tablet,extended release RxNorm: 769922 TAKE ONE TABLET BY MOUTH DAILY 01/19/2019 02/12/2019 Inactive Carafate 1 gram tablet RxNorm: 878369 TAKE ONE TABLET BY MOUTH BEFORE MEALS AN D AT BEDTIME 12/30/2018 02/19/2019 Active Carafate 1 gram tablet RxNorm: 841421 TAKE ONE TABLET BY MOUTH BEFORE MEALS AN D AT BEDTIME 12/12/2018 12/29/2018 Inactive mupirocin 2 % topica l ointment RxNorm: 443181 1 Application TOP TID 12/08/2018 12/17/2018 Inactive mupirocin 2 % topica l ointment RxNorm: 494329 1 Application TOP TID 12/08/2018 12/07/2018 Inactive allopurinol 300 mg t ablet RxNorm: 716071 TAKE ONE TABLET BY MO UTH DAILY 11/22/2018 03/21/2019 Ac tive clonazepam 0.5 mg ta blet RxNorm: 787819 1 Tablet(s) PO BID 11/16/2018 04/14/2019 Active Carafate 1 gram tablet RxNorm: 692930 TAKE ONE TABLET BY MOUTH BEFORE MEALS AN D AT BEDTIME 11/15/2018 12/10/2018 Inactive atenolol 100 mg tablet RxNorm: 176804 TAKE ONE TABLET BY MOUTH DAILY 10/24/2018 05/21/2019 Ac tive potassium chloride E R 20 mEq tablet,extended release RxNorm: 414734 2 Tablet(s) PO daily 10/18/2018 02/13/2019 Inactive potassium chloride E R 20 mEq tablet,extended release RxNorm: 906373 1 Tablet(s) PO daily 10/03/2018 10/17/2018 Inactive Carafate 1 gram tablet RxNorm: 917611 TAKE ONE TABLET BY MOUTH BEFORE MEALS AN D AT BEDTIME 09/26/2018 11/14/2018 Inactive Plavix 75 mg tablet RxNorm: 170453 TAKE ONE TABLET BY MOUTH DAILY 09/02/2018 02/28/2019 Ac tive prednisone 10 mg tablet RxNorm: 369992 Tablet(s) PO 09/02/2018 No Stop Date Active 60,60,50,50,40,40,30,30,20,20,10,10 Synthroid 125 mcg ta blet RxNorm: 144888 1 Tablet(s) PO daily 09/02/2018 08/27/2019 Active potassium chloride E R 20 mEq tablet,extended release RxNorm: 020916 1 Tablet(s) PO daily 09/02/2018 09/01/2018 Inactive potassium chloride E R 20 mEq tablet,extended release RxNorm: 748128 1 Tablet(s) PO daily 09/02/2018 10/02/2018 Inactive Synthroid 125 mcg ta blet RxNorm: 626087 1 Tablet(s) PO daily 09/02/2018 09/01/2018 Inactive Keflex 500 mg capsule RxNorm: 429471 1 Capsule(s) PO TID 09/02/2018 09/08/2018 Inactive Kenalog 40 mg/mL maxine pension for injection RxNorm: 8380216 Milliliter(s) Inj 09/02/2018 09/02/2018 In active Lipitor 40 mg tablet RxNorm: 195657 TAKE ONE TABLET BY MOUTH DAILY 07/29/2018 07/23/2019 Ac tive Coumadin 1 mg tablet RxNorm: 002786 TAKE ONE TABLET BY MOUTH DAILY 07/29/2018 10/26/2018 In active Carafate 1 gram tablet RxNorm: 934103 TAKE ONE TABLET BY MOUTH BEFORE MEALS AN D AT BEDTIME 07/28/2018 09/17/2018 Inactive Coumadin 4 mg tablet RxNorm: 474487 2 Tablet(s) daily 07/11/2018 02/05/2019 Inactive Gene andre For:COUMADIN 4MG 07/22/2017 8:58:26 AM Coumadin 5 mg tablet RxNorm: 716038 Tablet(s) TAKE 1 TABLET BY MOUTH DIRE CTED 07/08/2018 01/03/2019 Inactive Generic For:COUMADIN 5MG TAB 03/21/2018 9:13:00 AM Coumadin 4 mg tablet RxNorm: 993422 Tablet(s) TAKE 1 TABLET BY MOUTH THREE T IMES PER WEEK (WEDNESDAY, WEDNESDAY AND WEDNESDAY) 07/08/2018 07/10/2018 Inactive Gene andre For:COUMADIN 4MG 07/22/2017 8:58:26 AM Coumadin 1 mg tablet RxNorm: 883450 1 Tablet(s) PO daily 07/08/2018 08/06/2018 Inactive venlafaxine ER 75 mg capsule,extended release 24 hr RxNorm: 466796 Capsule(s) TAKE 1 CAPSULE BY MOUTH ONCE DAILY 06/23/2018 06/17/2019 Active Generic For:*EFFEXOR XR 75MG 06/19/2017 12:23:45 PM sodium bicarbonate 6 50 mg tablet RxNorm: 849320 Tablet(s) TAKE 2 TABL ETS BY MOUTH TWICE DAILY 06/23/2018 12/19/2018 Inactive 12/20/2017 9:10:59 AM Coumadin 1 mg tablet RxNorm: 458802 1 Tablet(s) PO daily 06/17/2018 07/07/2018 Inactive Coumadin 1 mg tablet RxNorm: 085211 1 Tablet(s) PO daily 06/17/2018 06/16/2018 Inactive clonazepam 0.5 mg ta blet RxNorm: 416912 1 Tablet(s) PO BID 06/08/2018 11/03/2018 Inactive spironolactone 25 mg tablet RxNorm: 839718 TAKE 1 TABLET BY MOUT H EVERY DAY 05/18/2018 05/12/2019 Ac tive Generic For:*ALDACTONE 25MG 05/18/2018 8:57:50 AM Carafate 1 gram tablet RxNorm: 500759 TAKE ONE TABLET BY MOUTH BEFORE MEALS AN D AT BEDTIME 05/18/2018 07/12/2018 Inactive Generic For:CARAFATE 1GM 1 07/18/2017 8:38:28 AM Synthroid 137 mcg ta blet RxNorm: 362098 TAKE 1 TABLET BY MOUT H ONCE DAILY 05/18/2018 08/30/2018 In active Generic For:SYNTHROID 137MCG TAB 2017 8:57:54 AM allopurinol 300 mg t ablet RxNorm: 079948 TAKE 1 TABLET BY MOUT H ONCE DAILY. 04/18/2018 10/14/2018 In active Generic For:ZYLOPRIM 300 MG TABLET 03/22 9:13:47 AM Lasix 20 mg tablet RxNorm: 362614 TAKE ONE TABLET BY MOUTH DAILY 04/18/2018 08/15/2018 In active Generic For:LASIX 20MG 04/18/2018 9:13: 50 AM Carafate 1 gram tablet RxNorm: 774732 TAKE ONE TABLET BY MOUTH BEFORE MEALS AN D AT BEDTIME 04/18/2018 05/17/2018 Inactive Generic For:CARAFATE 1GM 1 9:32:51 AM Coumadin 5 mg tablet RxNorm: 675795 TAKE 1 TABLET BY MOUTH DIRECTED 03/21/2018 07/07/2018 In active Generic For:COUMADIN 5MG TAB 03/21/2018 9:13:00 AM Carafate 1 gram tablet RxNorm: 037881 TAKE ONE TABLET BY MOUTH BEFORE MEALS AN D AT BEDTIME 03/21/2018 04/17/2018 Inactive Generic For:CARAFATE 1GM 1 9:14:24 AM Carafate 1 gram tablet RxNorm: 269856 1 Tablet(s) PO AC & HS 02/17/2018 03/20/2018 Inactive atenolol 100 mg tablet RxNorm: 469882 1 Tablet(s) PO daily 02/04/2018 09/01/2018 Inactive atenolol 50 mg tablet RxNorm: 869037 1 Tablet(s) PO daily 02/03/2018 02/03/2018 Inactive omeprazole 20 mg cap sean,delayed release RxNorm: 447960 1 Capsule(s) BID 01/21/2018 01/15/2019 In active Generic For:PRILOSEC 20MG 07/22/2017 8:5 8:20 AM Carafate 1 gram tablet RxNorm: 763123 1 Tablet(s) PO AC & HS 01/21/2018 02/16/2018 Inactive Carafate 1 gram tablet RxNorm: 140453 1 Tablet(s) PO AC & HS 01/18/2018 01/20/2018 Inactive Carafate 1 gram tablet RxNorm: 488693 1 Tablet(s) PO AC & HS 01/18/2018 02/27/2018 Inactive Carafate 1 gram tablet RxNorm: 302147 1 Tablet(s) PO AC & HS TAKE ONE TABLET B Y MOUTH TWICE DAILY 01/18/2018 05/17/2018 Inactive Generic For:CARAFATE 1GM 0 12/20/2017 9:10:56 AM omeprazole 20 mg cap sean,delayed release RxNorm: 450746 Capsule(s) TAKE 1 CAP SEAN BY MOUTH EVERY DAY 01/17/2018 01/20/2018 Inactive Generic For:PRILOSEC 20MG 0 07/22/2017 8:58:20 AM omeprazole 20 mg cap sean,delayed release RxNorm: 765476 Capsule(s) TAKE 1 CAP SEAN BY MOUTH EVERY DAY 01/14/2018 01/16/2018 Inactive Generic For:PRILOSEC 20MG 07/22/2017 8:58:20 AM clonazepam 0.5 mg ta blet RxNorm: 954775 1 Tablet(s) PO BID 01/07/2018 06/05/2018 Inactive Plavix 75 mg tablet RxNorm: 439279 1 Tablet(s) PO daily 01/07/2018 07/05/2018 Inactive Carafate 1 gram tablet RxNorm: 131516 1 Tablet(s) PO AC & HS 01/04/2018 01/17/2018 Inactive Lasix 20 mg tablet RxNorm: 940251 TAKE ONE TABLET BY MOUTH DAILY 12/20/2017 04/17/2018 In active Generic For:LASIX 20MG 12/20/2017 9:11: 03 AM sodium bicarbonate 6 50 mg tablet RxNorm: 275951 TAKE 2 TABLETS BY JAVON TH TWICE DAILY 12/20/2017 06/17/2018 In active 12/20/2017 9:10:59 AM Carafate 1 gram tablet RxNorm: 968880 TAKE ONE TABLET BY MOUTH TWICE DAILY 12/20/2017 01/17/2018 In active Generic For:CARAFATE 1GM 12/20/2017 9:1 0:56 AM Synthroid 137 mcg ta blet RxNorm: 836167 TAKE 1 TABLET BY MOUT H ONCE DAILY 11/19/2017 05/17/2018 In active Generic For:SYNTHROID 137MCG TAB 2017 8:58:04 AM Detrol LA 4 mg capsu le,extended release RxNorm: 001995 TAKE 1 CAPSULE BY JAVON TH ONCE DAILY 10/20/2017 04/13/2018 Inactive Generic For:DETROL LA 4MG C AP 10/20/2017 9:01:56 AM allopurinol 300 mg t ablet RxNorm: 194760 TAKE 1 TABLET BY MOUT H ONCE DAILY. 10/20/2017 04/17/2018 In active Generic For:ZYLOPRIM 300 MG TABLET 07/2017 9:01:59 AM Coumadin 5 mg tablet RxNorm: 338096 1 Tablet(s) PO UD 10/01/2017 03/20/2018 Inactive cyclobenzaprine 5 mg tablet RxNorm: 287672 1 Tablet(s) PO TID as needed myscle spasm 09/23/2017 10/12/2017 Inactive Lipitor 40 mg tablet RxNorm: 992710 TAKE 1 TABLET BY MOUTH ONCE DAILY 09/20/2017 07/28/2018 In active Generic For:LIPITOR 40MG 09/20/2017 8:5 6:04 AM atenolol 100 mg tablet RxNorm: 968444 1 Tablet(s) PO daily 08/30/2017 02/03/2018 Inactive atenolol 50 mg tablet RxNorm: 981701 1 Tablet(s) PO daily 08/30/2017 08/30/2017 Inactive Lovenox 30 mg/0.3 mL subcutaneous syringe RxNorm: 988324 0.3 Milliliter(s) SQ Q12H 08/24/2017 09/06/2017 In active Lasix 20 mg tablet RxNorm: 085813 TAKE ONE TABLET BY MOUTH DAILY 08/23/2017 12/19/2017 In active Generic For:LASIX 20MG 08/21/2017 9:04: 27 AM Synthroid 137 mcg ta blet RxNorm: 686268 TAKE 1 TABLET BY MOUT H ONCE DAILY 08/23/2017 11/18/2017 In active Generic For:SYNTHROID 137MCG TAB 2017 9:04:30 AM Lovenox 30 mg/0.3 mL subcutaneous syringe RxNorm: 071835 0.3 Milliliter(s) SQ Q12H 08/10/2017 08/23/2017 In active clonazepam 0.5 mg ta blet RxNorm: 896903 1 Tablet(s) PO BID 08/04/2017 12/30/2017 Inactive omeprazole 20 mg cap sean,delayed release RxNorm: 240281 TAKE 1 CAPSULE BY JAVON TH EVERY DAY 07/22/2017 01/13/2018 Inactive Generic For:PRILOSEC 20MG 07/22/2017 8: 58:20 AM Coumadin 4 mg tablet RxNorm: 687391 TAKE 1 TABLET BY MOUTH THREE TIMES PER [place] (WEDNESDAY, WEDNESDAY AND WEDNESDAY) 07/22/2017 10/03/2018 Inactive Generic For:COUMADIN 4MG 07/22/2017 8:58:26 AM Coumadin 4 mg tablet RxNorm: 514784 TAKE 1 TABLET BY MOUTH THREE TIMES PER [place] (WEDNESDAY, WEDNESDAY AND WEDNESDAY) 07/22/2017 02/16/2018 Inactive Generic For:COUMADIN 4MG 07/22/2017 8:58:26 AM sodium bicarbonate 6 50 mg tablet RxNorm: 940238 TAKE 2 TABLETS BY JAVON TH TWICE DAILY 06/22/2017 12/18/2017 In active 06/19/2017 12:23:30 PM venlafaxine ER 75 mg capsule,extended release 24 hr RxNorm: 875120 TAKE 1 CAPSULE BY MOUTH ONCE DAILY 06/22/2017 06/16/2018 Inactive Generic For:*EFFEXOR XR 75M G 06/19/2017 12:23:45 PM Coumadin 5 mg tablet RxNorm: 594609 1 Tablet(s) PO UD 06/01/2017 09/30/2017 Inactive Keflex 500 mg capsule RxNorm: 586627 1 Capsule(s) PO TID 05/27/2017 06/02/2017 Inactive Synthroid 137 mcg ta blet RxNorm: 495599 TAKE 1 TABLET BY MOUT H ONCE DAILY 05/24/2017 08/21/2017 In active Generic For:SYNTHROID 137MCG TAB 2016 8:55:59 AM Carafate 1 gram tablet RxNorm: 479340 TAKE ONE TABLET BY MOUTH TWICE DAILY 05/24/2017 12/19/2017 In active Generic For:CARAFATE 1GM 05/24/2017 8:5 5:54 AM spironolactone 25 mg tablet RxNorm: 639723 1 Tablet(s) PO daily 05/24/2017 05/17/2018 Inactive Detrol LA 4 mg capsu le,extended release RxNorm: 821752 1 Capsule(s) PO daily TAKE 1 CAPSULE BY MOUTH ONCE DAILY 05/10/2017 10/19/2017 Inactive Generic For:DETROL LA 4MG CAP 02/19/2017 2:36:00 PM Lasix 20 mg tablet RxNorm: 233875 TAKE ONE TABLET BY MOUTH DAILY 04/23/2017 08/20/2017 In active Generic For:LASIX 20MG 04/23/2017 9:04: 01 AM Coumadin 4 mg tablet RxNorm: 231933 TAKE 1 TABLET BY MOUTH THREE TIMES PER [place] (WEDNESDAY, WEDNESDAY AND WEDNESDAY) 04/23/2017 07/21/2017 Inactive Generic For:COUMADIN 4MG 04/23/2017 9:04:05 AM allopurinol 300 mg t ablet RxNorm: 288321 TAKE 1 TABLET BY MOUT H ONCE DAILY. 04/23/2017 10/19/2017 In active Generic For:ZYLOPRIM 300 MG TABLET 08/2016 9:03:57 AM potassium chloride 2 0 mEq/15 mL oral liquid RxNorm: 903192 Milliliter(s) 30 Milliliter(s) (40mEq) PO daily 03/24/2017 07/21/2017 Inactive Lovenox 30 mg/0.3 mL subcutaneous syringe RxNorm: 736062 0.3 Milliliter(s) SQ Q12H 03/22/2017 03/26/2017 In active Lovenox 30 mg/0.3 mL subcutaneous syringe RxNorm: 103606 0.3 Milliliter(s) SQ Q12H 03/19/2017 03/20/2017 In active Lovenox 30 mg/0.3 mL subcutaneous syringe RxNorm: 322179 0.3 Milliliter(s) SQ Q12H 03/16/2017 03/18/2017 In active clonazepam 0.5 mg ta blet RxNorm: 046410 1 Tablet(s) PO BID 03/02/2017 10/03/2018 Inactive Lovenox 30 mg/0.3 mL subcutaneous syringe RxNorm: 818276 1 injection SQ BID do NOT take the night time dose the day before surgery, or the morning dose the day of surgery 03/01/2017 03/07/2017 Inactive Lovenox 30 mg/0.3 mL subcutaneous syringe RxNorm: 920639 1 injection SQ BID 03/01/2017 02/28/2017 In active Detrol LA 4 mg capsu le,extended release RxNorm: 830478 TAKE 1 CAPSULE BY JAVON TH ONCE DAILY 02/19/2017 05/09/2017 Inactive Generic For:DETROL LA 4MG C AP 02/19/2017 2:36:00 PM hydrocodone 5 mg-humberto taminophen 325 mg tablet RxNorm: 626409 1-2 Tablet(s) PO Q6 P RN 02/04/2017 No Stop Date Active Zetia 10 mg tablet RxNorm: 755259 TAKE 1 TABLET BY MOUTH DAILY 01/25/2017 04/13/2018 Inactive 01/23/2017 9:03:48 AM omeprazole 20 mg cap sean,delayed release RxNorm: 730300 TAKE 1 CAPSULE BY JAVON TH EVERY DAY 01/25/2017 07/21/2017 Inactive Generic For:PRILOSEC 20MG 01/23/2017 9: 03:45 AM Coumadin 4 mg tablet RxNorm: 280093 TAKE 1 TABLET BY MOUTH THREE TIMES PER [place] (WEDNESDAY, WEDNESDAY AND WEDNESDAY) 01/25/2017 04/22/2017 Inactive Generic For:COUMADIN 4MG 01/23/2017 9:03:51 AM sodium bicarbonate 6 50 mg tablet RxNorm: 494655 TAKE 2 TABLETS BY JAVON TH TWICE DAILY 12/24/2016 06/21/2017 In active 12/24/2016 9:09:27 AM Lasix 20 mg tablet RxNorm: 601709 1 Tablet(s) PO daily 12/24/2016 04/22/2017 Inactive Synthroid 137 mcg ta blet RxNorm: 228651 TAKE 1 TABLET BY MOUT H ONCE DAILY 11/24/2016 05/22/2017 In active Generic For:SYNTHROID 137MCG TAB 2016 9:04:37 AM Coumadin 4 mg tablet RxNorm: 351923 TAKE 1 TABLET BY MOUTH THREE TIMES PER [place] (WEDNESDAY, WEDNESDAY AND WEDNESDAY) 11/24/2016 01/22/2017 Inactive Generic For:COUMADIN 4MG 11/24/2016 9:04:41 AM hydrocodone 5 mg-humberto taminophen 325 mg tablet RxNorm: 477663 1-2 Tablet(s) PO Q6 P RN 11/17/2016 02/03/2017 In active Carafate 1 gram tablet RxNorm: 916320 TAKE ONE TABLET BY MOUTH TWICE DAILY 10/27/2016 05/23/2017 In active Generic For:CARAFATE 1GM 10/26/2016 8:3 9:42 AM allopurinol 300 mg t ablet RxNorm: 913974 Tablet(s) TAKE 1 TABL ET BY MOUTH ONCE DAILY. 10/26/2016 04/22/2017 Inactive Lipitor 40 mg tablet RxNorm: 470653 1 Tablet(s) PO daily 09/25/2016 09/19/2017 Inactive Coumadin 4 mg tablet RxNorm: 093588 TAKE 1 TABLET BY MOUTH THREE TIMES PER [place] (WEDNESDAY, WEDNESDAY AND WEDNESDAY) 09/25/2016 11/23/2016 Inactive Generic For:COUMADIN 4MG 09/25/2016 8:55:58 AM Zetia 10 mg tablet RxNorm: 650912 1 Tablet(s) PO daily 09/25/2016 01/22/2017 Inactive gave 1 month of samples clonazepam 0.5 mg ta blet RxNorm: 779462 1 Tablet(s) PO BID 09/21/2016 10/03/2018 Inactive Lasix 20 mg tablet RxNorm: 057895 1 Tablet(s) PO daily 09/15/2016 12/23/2016 Inactive potassium chloride 2 0 mEq/15 mL oral liquid RxNorm: 326282 Milliliter(s) 30 Milliliter(s) (40mEq) PO daily 09/15/2016 01/12/2017 Inactive Lasix 20 mg tablet RxNorm: 478115 2 Tablet(s) PO daily 09/10/2016 09/12/2016 Inactive Lasix 20 mg tablet RxNorm: 348783 1 Tablet(s) PO daily 08/28/2016 08/30/2016 Inactive Lasix 20 mg tablet RxNorm: 008354 1 Tablet(s) PO daily 08/20/2016 08/22/2016 Inactive Detrol LA 4 mg capsu le,extended release RxNorm: 348316 TAKE 1 CAPSULE BY JAVON ONCE DAILY 07/27/2016 02/18/2017 Inactive Generic For:DETROL LA 4MG C AP 07/27/2016 9:08:27 AM Coumadin 4 mg tablet RxNorm: 772564 1 Tablet(s) PO 3 x week tue and sun 07/27/2016 09/24/2016 In active omeprazole 20 mg cap sean,delayed release RxNorm: 629224 Capsule(s) PO TAKE 1 CAPSULE BY MOUTH ONCE DAILY 07/27/2016 01/22/2017 Inactive venlafaxine ER 75 mg capsule,extended release 24 hr RxNorm: 624943 1 Capsule(s) PO daily 06/29/2016 06/21/2017 Inactive sodium bicarbonate 6 50 mg tablet RxNorm: 739507 TAKE 2 TABLETS BY [facility] TWICE DAILY 06/29/2016 12/23/2016 In active 06/27/2016 9:05:39 AM Coumadin 4 mg tablet RxNorm: 979303 1 Tablet(s) PO 3 x week [facility] and sun 06/09/2016 06/08/2016 In active Coumadin 4 mg tablet RxNorm: 625875 1 Tablet(s) PO 3 x week [facility] and sun 06/09/2016 07/26/2016 In active Zetia 10 mg tablet RxNorm: 613385 1 Tablet(s) PO daily 06/09/2016 06/08/2016 Inactive gave 1 month of samples Zetia 10 mg tablet RxNorm: 325371 1 Tablet(s) PO daily 06/09/2016 09/24/2016 Inactive gave 1 month of samples Effexor 75 mg tablet RxNorm: 719366 1 Tablet(s) PO daily 06/08/2016 06/28/2016 Inactive spironolactone 25 mg tablet RxNorm: 529830 1 Tablet(s) PO daily 06/08/2016 05/23/2017 Inactive Synthroid 137 mcg ta blet RxNorm: 573754 1 Tablet(s) PO daily 05/07/2016 11/02/2016 Inactive allopurinol 300 mg t ablet RxNorm: 947583 Tablet(s) TAKE 1 TABL ET BY MOUTH ONCE DAILY. 04/28/2016 10/24/2016 Inactive clonazepam 0.5 mg ta blet RxNorm: 966912 1 Tablet(s) PO BID 04/20/2016 10/03/2018 Inactive Flonase Allergy Reli ef 50 mcg/actuation nasal spray,suspension RxNorm: 1434266 1 [place] NASAL BID 04/02/2016 No Stop Date Active Zithromax Z-Thomas 250 mg tablet RxNorm: 377097 Tablet(s) PO 04/02/2016 08/27/2016 Inactive cetirizine 10 mg tablet RxNorm: 7699984 1 Tablet(s) PO daily 04/02/2016 05/01/2016 Inactive Carafate 1 gram tablet RxNorm: 378588 Tablet(s) TAKE 1 TABLET TWICE A DAY FOR 30 DAYS 03/30/2016 10/25/2016 Inactive Generic For:CARAFATE 1GM 02/08/2015 12:3 6:39 PM Plavix 75 mg tablet RxNorm: 894420 1 Tablet(s) PO daily 03/11/2016 09/06/2016 Inactive sodium bicarbonate 6 50 mg tablet RxNorm: 763433 Tablet(s) 2 Tablet(s) PO BID 02/28/2016 06/26/2016 In active omeprazole 20 mg cap sean,delayed release RxNorm: 897460 Capsule(s) PO TAKE 1 CAPSULE BY MOUTH ONCE DAILY 01/31/2016 07/26/2016 Inactive Fish Oil 1,000 mg ca psule RxNorm: 1 Capsule(s) PO BID 01/14/2016 No Stop Date Active Synthroid 137 mcg ta blet RxNorm: 131482 1 Tablet(s) PO daily 01/14/2016 05/06/2016 Inactive Detrol LA 4 mg capsu le,extended release RxNorm: 307239 TAKE 1 CAPSULE BY JAVON TH ONCE DAILY 12/30/2015 07/26/2016 Inactive Generic For:DETROL LA 4MG C AP 12/30/2015 9:11:01 AM potassium chloride 2 0 mEq/15 mL oral liquid RxNorm: 207437 Milliliter(s) 30 Milliliter(s) (40mEq) PO daily 12/02/2015 03/30/2016 Inactive sodium bicarbonate 6 50 mg tablet RxNorm: 135231 Tablet(s) 2 Tablet(s) PO BID 10/31/2015 02/27/2016 In active Lipitor 40 mg tablet RxNorm: 244661 1 Tablet(s) PO daily 10/09/2015 09/24/2016 Inactive sodium bicarbonate 6 50 mg tablet RxNorm: 903361 2 Tablet(s) PO BID 10/01/2015 10/30/2015 Inactive allopurinol 300 mg t ablet RxNorm: 032713 TAKE 1 TABLET BY MOUT H ONCE DAILY. 10/01/2015 04/27/2016 In active Generic For:ZYLOPRIM 300 MG TABLET 09/19 9:21:15 AM clonazepam 0.5 mg ta blet RxNorm: 866926 1 Tablet(s) PO BID 09/30/2015 04/19/2016 Inactive Coumadin 5 mg tablet RxNorm: 955043 1 Tablet(s) PO daily 09/27/2015 05/31/2017 Inactive Generic For:COUMADIN 5MG TAB N O T I C E PRESCRIPTION PREVIOUSLY AUTHORIZED BY DOCTOR:BOBBY ZULETA Synthroid 125 mcg ta blet RxNorm: 754956 1 Tablet(s) PO daily 09/27/2015 09/26/2015 Inactive Synthroid 125 mcg ta blet RxNorm: 650646 1 Tablet(s) PO daily 09/27/2015 01/13/2016 Inactive Carafate 1 gram tablet RxNorm: 004819 Tablet(s) TAKE 1 TABLET TWICE A DAY FOR 30 DAYS 09/02/2015 03/29/2016 Inactive Generic For:CARAFATE 1GM 02/08/2015 12:3 6:39 PM sodium bicarbonate 6 50 mg tablet RxNorm: 660237 2 Tablet(s) PO BID 09/02/2015 09/30/2015 Inactive Prilosec 20 mg capsu le,delayed release RxNorm: 433564 TAKE 1 CAPSULE BY JAVON TH ONCE DAILY 08/02/2015 01/28/2016 Inactive Generic For:PRILOSEC 20MG 08/02/2015 10:03:09 AM N O T I C E PRESCRIPTION PREVIOUSLY AUTHORIZED BY DOCTOR:BOBBY ZULETA Zyrtec 10 mg capsule RxNorm: 2847137 1 Capsule(s) PO daily 07/15/2015 08/13/2015 Inactive Keflex 500 mg capsule RxNorm: 443660 1 Capsule(s) PO TID 07/15/2015 07/21/2015 Inactive cetirizine 10 mg cap sean RxNorm: 6025821 1 Capsule(s) PO daily 07/15/2015 08/13/2015 Inactive hydrocodone 5 mg-humberto taminophen 325 mg tablet RxNorm: 625461 1-2 Tablet(s) PO Q6 P RN 06/10/2015 11/16/2016 In active sodium bicarbonate 6 50 mg tablet RxNorm: 619318 2 Tablet(s) PO BID 06/03/2015 08/31/2015 Inactive Detrol LA 4 mg capsu le,extended release RxNorm: 019368 TAKE 1 CAPSULE BY JAVON TH ONCE DAILY 06/03/2015 12/29/2015 Inactive Generic For:DETROL LA 4MG C AP N O T I C E PRESCRIPTION PREVIOUSLY AUTHORIZED BY DOCTOR:BOBBY ZULETA atenolol 50 mg tablet RxNorm: 489991 1 Tablet(s) PO daily TAKE 1 TABLET BY MO UTH DAILY 05/07/2015 08/23/2017 Inactive Generic For:TENORMIN 50MG 05/04/2015 9:07:22 AM spironolactone 25 mg tablet RxNorm: 229885 1 Tablet(s) PO daily 05/06/2015 06/07/2016 Inactive venlafaxine ER 75 mg capsule,extended release 24 hr RxNorm: 097724 1 Capsule(s) PO daily 05/04/2015 06/28/2016 Inactive atenolol 50 mg tablet RxNorm: 011860 TAKE 1 TABLET BY MOUTH DAILY 05/04/2015 05/06/2015 Inactive Generic For:TENORMIN 50MG 05/04/2015 9: 07:22 AM Synthroid 150 mcg ta blet RxNorm: 671672 TAKE 1 TABLET BY MOUT H ONCE DAILY. 04/05/2015 09/26/2015 In active Generic For:SYNTHROID 150MCG TAB 2014 4:45:40 PM N O T I C E PRESCRIPTION PREVIOUSLY AUTHORIZED BY DOCTOR:BOBBY ZULETA Effexor 75 mg tablet RxNorm: 230082 1 Tablet(s) PO daily 04/05/2015 07/03/2015 Inactive Coumadin 5 mg tablet RxNorm: 407129 TAKE 1 AND 1/2 TABLETS BY MOUTH ONCE MYRANDA LY 04/04/2015 09/26/2015 In active Generic For:COUMADIN 5MG TAB N O T I C E PRESCRIPTION PREVIOUSLY AUTHORIZED BY DOCTOR:BOBBY ZULETA clonazepam 0.5 mg ta blet RxNorm: 044591 1 Tablet(s) PO BID 03/13/2015 11/05/2015 Inactive sodium bicarbonate 6 50 mg tablet RxNorm: 126648 2 Tablet(s) PO BID 03/08/2015 06/02/2015 Inactive allopurinol 300 mg t ablet RxNorm: 429219 TAKE 1 TABLET BY MOUT H ONCE DAILY. 03/05/2015 09/30/2015 In active N O T I C E PRESCRIPTION PREVIOUSLY A UTHORIZED BY DOCTOR:BOBBY ZULETA Plavix 75 mg tablet RxNorm: 211472 1 Tablet(s) PO daily 02/12/2015 09/09/2015 Inactive clonazepam 0.5 mg ta blet RxNorm: 254363 1 Tablet(s) PO BID 02/11/2015 03/11/2015 Inactive Carafate 1 gram tablet RxNorm: 042598 TAKE 1 TABLET TWICE A DAY FOR 30 DAYS 02/08/2015 02/07/2015 In active Generic For:CARAFATE 1GM 02/08/2015 12:3 6:39 PM Carafate 1 gram tablet RxNorm: 594794 Tablet(s) TAKE 1 TABLET TWICE A DAY FOR 30 DAYS 02/08/2015 09/01/2015 Inactive Generic For:CARAFATE 1GM 02/08/2015 12:3 6:39 PM potassium chloride 2 0 mEq/15 mL oral liquid RxNorm: 474956 30 Milliliter(s) (40m Eq) PO daily 02/05/2015 12/01/2015 Inactive atenolol 50 mg tablet RxNorm: 542396 1 Tablet(s) PO daily 02/04/2015 05/03/2015 Inactive [SAVINGS FOR NON-COVERED DRUGS -- BIN:00 [id number], PCN: [id number], Group: XXXXX, ID# [id number], Questions: . THIS IS NOT INSURANCE.] potassium chloride 2 0 mEq/15 mL oral liquid RxNorm: 116982 30 Milliliter(s) (40m Eq) PO daily 01/08/2015 02/04/2015 Inactive potassium chloride 2 0 mEq/15 mL oral liquid RxNorm: 057385 30 Milliliter(s) (40m Eq) PO daily 12/07/2014 01/07/2015 Inactive atenolol 50 mg tablet RxNorm: 864709 1 Tablet(s) PO daily 11/09/2014 11/08/2014 Inactive atenolol 50 mg tablet RxNorm: 337456 1 Tablet(s) PO daily 11/09/2014 02/03/2015 Inactive [SAVINGS FOR NON-COVERED DRUGS -- BIN:00 3585, PCN: [id number], Group: XXXXX, ID# XXXXXXX, Questions: . THIS IS NOT INSURANCE.] Voltaren 1 % topical gel RxNorm: 461930 TOP No St art Date Active verapamil ER (HS) 24 0 mg tablet,extended release 24 hr RxNorm: 653301 1 Tablet(s) PO daily No Start Date Active aspirin 81 mg tablet RxNorm: 611542 1 Tablet(s) PO daily No Start Date Active Zofran 4 mg tablet RxNorm: 361115 1 Tablet(s) PO PRN No Start Date Active B12 1000 mcg RxNorm: 1 Tablet(s) PO daily No Start Date Active magnesium oxide 400 mg capsule RxNorm: 008624 2 Capsule(s) PO BID No Start Date Active Synthroid 150 mcg ta blet RxNorm: 661914 1 Tablet(s) PO daily No Start Date 04/04/2015 Inactive Coumadin 5 mg tablet RxNorm: 338431 1 Tablet(s) PO daily No Start Date 04/03/2015 Inactive cranberry 1,000 mg c apsule RxNorm: 671275 1 Capsule(s) PO daily No Start Date 04/13/2018 Inactive allopurinol 300 mg t ablet RxNorm: 420770 1 Tablet(s) PO daily No Start Date 03/04/2015 Inactive Prilosec 20 mg capsu le,delayed release RxNorm: 606951 1 Capsule(s) PO PRN No Start Date 08/01/2015 Inactive potassium chloride 2 0 mEq/15 mL oral liquid RxNorm: 327916 30 Milliliter(s) (40m Eq) PO daily No Start Date 12/06/2014 Inactive atenolol 50 mg tablet RxNorm: 653207 1 Tablet(s) PO daily No Start Date 08/29/2017 Inactive Lipitor 40 mg tablet RxNorm: 392768 1 Tablet(s) PO daily No Start Date 09/19/2017 Inactive Effexor 75 mg tablet RxNorm: 393702 1 Tablet(s) PO daily No Start Date 04/04/2015 Inactive Carafate 1 gram tablet RxNorm: 636023 1 Tablet(s) PO BID No Start Date 02/07/2015 Inactive clonazepam 0.5 mg ta blet RxNorm: 699806 1 Tablet(s) PO BID No Start Date 02/10/2015 Inactive Plavix 75 mg tablet RxNorm: 373492 1 Tablet(s) PO daily No Start Date 02/11/2015 Inactive sodium bicarbonate 6 50 mg tablet RxNorm: 993064 2 Tablet(s) PO BID No Start Date 09/01/2015 Inactive Lovenox 30 mg/0.3 mL subcutaneous syringe RxNorm: 149067 0.3 Milliliter(s) SQ Q12H No Start Date 03/15/2017 Inactive Fish Oil 1,000 mg ca psule RxNorm: 1 Capsule(s) PO daily No Start Date 01/13/2016 Inactive Detrol LA 4 mg capsu le,extended release RxNorm: 308784 1 Capsule(s) PO daily No Start Date 06/02/2015 Inactive Medication Administered Medication Codes Instruc tions Start Date Status Kenalog 40 mg/mL suspension for injection RxNorm: 3093088 Milliliter 09/02/2018 No longer Active Immunizations Vaccine Codes Date Status SHINGARIX CVX: 121 03/23 completed Assessments Condition Codes Effectiv e Dates Mixed hyperlipidemia ICD-10: E78.2 ICD-9: 272.4 10/05/2018 Other acute sinusitis ICD-10: J01.80 ICD-9: 461.8 09/02/2018 Other allergic rhinitis ICD-10: J30. 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 ICD-9: [...] fatigue ICD-10: R53.83 ICD-9: 780.79 08/20/2016 Other mcfp (current) drug therapy ICD-10: Z79.899 ICD-9: V58.69 [...] Code Item Item Code Result Date Pt Etm1087 PT 27.4 seconds 01/27/2019 Pt Vos8234 INR 2.6 01/27/2019 Pt Zch2957 Low Intensity - 1.5-2.0 01/27/2019 Pt Rok4881 Mod intensity - 2.0-3.0 01/27/2019 Pt Chn0674 Hi intensity - 3.0-4.0 01/27/2019 Pt Xkd0881 PT 21.8 seconds 12/15/2018 Pt Ryb8486 INR 2.0 12/15/2018 Pt Rqz7927 Low Intensity - 1.5-2.0 12/15/2018 Pt Qwa3967 Mod intensity - 2.0-3.0 12/15/2018 Pt Nzf2774 Hi intensity - 3.0-4.0 12/15/2018 Pt Qkn4525 PT 24.4 seconds 12/09/2018 Pt Pwk5697 INR 2.2 12/09/2018 Pt Wpw0402 Low Intensity - 1.5-2.0 12/09/2018 Pt Bls2109 Mod intensity - 2.0-3.0 12/09/2018 Pt Wxq1544 Hi intensity - 3.0-4.0 12/09/2018 Pt Jcb8246 PT 35.0 seconds 12/01/2018 Pt Vxq8491 INR 3.5 12/01/2018 Pt Ibs6203 Low Intensity - 1.5-2.0 12/01/2018 Pt Uha4565 Mod intensity - 2.0-3.0 12/01/2018 Pt Qdw9601 Hi intensity - 3.0-4.0 12/01/2018 Pt Kbf5968 PT 26.3 seconds 10/13/2018 Pt Vaq3242 INR 2.5 10/13/2018 Pt Dex7801 Low Intensity - 1.5-2.0 10/13/2018 Pt Xzt9649 Mod intensity - 2.0-3.0 10/13/2018 Pt Ufk3612 Hi intensity - 3.0-4.0 10/13/2018 Lipid Ord30 CHOL 180 mg/dL 10/07/2018 Lipid Ord30 HDL 74.0 mg/dl 10/07/2018 Lipid Ord30 TRIG 111 mg/dL 10/07/2018 Lipid Ord30 LDL 84 mg/dL 10/07/2018 Lipid Ord30 C/HDL 2.4 Ratio 10/07/2018 Pt Zag7623 PT 38.1 seconds 10/07/2018 Pt Flm8851 INR 3.9 10/07/2018 Pt Cfl5550 Low Intensity - 1.5-2.0 10/07/2018 Pt Cve0143 Mod intensity - 2.0-3.0 10/07/2018 Pt Ehd3177 Hi intensity - 3.0-4.0 10/07/2018 Tsh Ord6 TSH (3rd IS) 0.43 uIU/mL 09/02/2018 Comp Metabolic Jeu979 NA 136 mEq/L 09/02/2018 Comp Metabolic Snz928 K 4.1 mEq/L 09/02/2018 Comp Metabolic Ztd481 CL 103 mEq/L 09/02/2018 Comp Metabolic Jpx053 CO2 20.0 mEq/L 09/02/2018 Comp Metabolic Pcf753 AN ION GAP 17 09/02/2018 Comp Metabolic Rwf118 GL UCOSE 124 mg/dL 09/02/2018 Comp Metabolic Raf187 Cr eat 1.0 mg/dL 09/02/2018 Comp Metabolic Fja175 eG FR 57 ml/min/1.73m2 09/02 Comp Metabolic Wle504 BUN 24 mg/dL 09/02/2018 Comp Metabolic Kpg325 B/ C Ratio 23.8 Ratio 09/02/2018 Comp Metabolic Jzk993 CA LCIUM 9.5 mg/dL 09/02/2018 Comp Metabolic Tdn563 AL K PHOS 64 U/L 09/02/2018 Comp Metabolic Xjz750 T(SGOT) 24 U/L 09/02/2018 Comp Metabolic Wbn930 AL T(SGPT) 23 U/L 09/02/2018 Comp Metabolic Fjd835 BI LI T 0.5 mg/dL 09/02/2018 Comp Metabolic Vux314 AL BUMIN 4.2 g/dL 09/02/2018 Comp Metabolic Ldw447 TP RO 7.4 g/dL 09/02/2018 Comp Metabolic Jke618 GL OB 3.2 g/dL 09/02/2018 Comp Metabolic Xcd460 A/ G Ratio 1.3 Ratio 09/02/2018 Comp Metabolic Zuq095 Os mo 277 mOsmo 09/02/2018 Pt Cdn6404 PT 40.6 seconds 09/02/2018 Pt Raq7415 INR 4.2 09/02/2018 Pt Xpw6210 Low Intensity - 1.5-2.0 09/02/2018 Pt Ujb1025 Mod intensity - 2.0-3.0 09/02/2018 Pt Uze8702 Hi intensity - 3.0-4.0 09/02/2018 Free T4 Qaj995 FREE T4 1.51 ng/dL 09/02/2018 Magnesium Ord90 Mag 1.8 mg/dL 09/02/2018 Pt Tzn8637 PT 29.2 seconds 08/05/2018 Pt Iuh5664 INR 2.8 08/05/2018 Pt Mgm2508 Low Intensity - 1.5-2.0 08/05/2018 Pt Oyh3111 Mod intensity - 2.0-3.0 08/05/2018 Pt Zql0128 Hi intensity - 3.0-4.0 08/05/2018 Pt Yul0325 PT 30.2 seconds 07/25/2018 Pt Wrc7565 INR 2.9 07/25/2018 Pt Hcb7760 Low Intensity - 1.5-2.0 07/25/2018 Pt Whs2711 Mod intensity - 2.0-3.0 07/25/2018 Pt Moa5756 Hi intensity - 3.0-4.0 07/25/2018 Pt Nob1246 PT 25.2 seconds 07/19/2018 Pt Ndk5600 INR 2.3 07/19/2018 Pt Grn1137 Low Intensity - 1.5-2.0 07/19/2018 Pt Vqj2136 Mod intensity - 2.0-3.0 07/19/2018 Pt Usj6946 Hi intensity - 3.0-4.0 07/19/2018 Pt Qzl0961 PT 17.4 seconds 07/15/2018 Pt Pep2941 INR 1.5 07/15/2018 Pt Uvv8667 Low Intensity - 1.5-2.0 07/15/2018 Pt Vxc1393 Mod intensity - 2.0-3.0 07/15/2018 Pt Wsm6524 Hi intensity - 3.0-4.0 07/15/2018 Pt Xvk2645 PT 17.8 seconds 07/08/2018 Pt Urq9436 INR 1.5 07/08/2018 Pt Rui4809 Low Intensity - 1.5-2.0 07/08/2018 Pt Ldp5029 Mod intensity - 2.0-3.0 07/08/2018 Pt Hlq3401 Hi intensity - 3.0-4.0 07/08/2018 Pt Paq8833 PT 19.2 seconds 07/01/2018 Pt Oxg1984 INR 1.7 07/01/2018 Pt Wmq3812 Low Intensity - 1.5-2.0 07/01/2018 Pt Lad7193 Mod intensity - 2.0-3.0 07/01/2018 Pt Jmc6486 Hi intensity - 3.0-4.0 07/01/2018 Pt Iwi3208 PT 17.4 seconds 06/23/2018 Pt Mmr7104 INR 1.5 06/23/2018 Pt Bnl3723 Low Intensity - 1.5-2.0 06/23/2018 Pt Emo9170 Mod intensity - 2.0-3.0 06/23/2018 Pt Lhh2565 Hi intensity - 3.0-4.0 06/23/2018 Pt Qgz7836 PT 18.4 seconds 06/17/2018 Pt Zvp4010 INR 1.6 06/17/2018 Pt Nvu0667 Low Intensity - 1.5-2.0 06/17/2018 Pt Kej1759 Mod intensity - 2.0-3.0 06/17/2018 Pt Vji4694 Hi intensity - 3.0-4.0 06/17/2018 Sed Rate [...] 30.4 pg 06/08/2018 Cbc With Differential Ord2 Peach% 9.4 % 06/08/2018 Cbc With Differential Ord2 [...] 1.20 K/ul 06/08/2018 Cbc With Differential Ord2 Peach ABS# 0.5 K/ul 06/08/2018 Cbc With Differential Ord2 Eos ABS# 0.1 K/ul 06/08/2018 Cbc With Differential Ord2 Baso ABS# 0.1 K/ul 06/08/2018 C-Reactive Protein Qnt Crqnt CRP 0.1 mg/dl 06/08/2018 Pt Uye7322 PT 17.6 seconds 06/08/2018 Pt Zrh3809 INR 1.5 06/08/2018 Pt Mnn9266 Low Intensity - 1.5-2.0 06/08/2018 Pt Nts7579 Mod intensity - 2.0-3.0 06/08/2018 Pt Qny9922 Hi intensity - 3.0-4.0 06/08/2018 Pt Cnh6804 PT 16.8 seconds 05/10/2018 Pt Bjp9955 INR 1.4 05/10/2018 Pt Gav6147 Low Intensity - 1.5-2.0 05/10/2018 Pt Ueo2748 Mod intensity - 2.0-3.0 05/10/2018 Pt Din3693 Hi intensity - 3.0-4.0 05/10/2018 Pt Owh4504 PT 16.7 seconds 05/04/2018 Pt Ugk2629 INR 1.4 05/04/2018 Pt Pkr6376 Low Intensity - 1.5-2.0 05/04/2018 Pt Yjw0311 Mod intensity - 2.0-3.0 05/04/2018 Pt Snk3391 Hi intensity - 3.0-4.0 05/04/2018 Free T4 Vkc567 FREE T4 1.09 ng/dL 04/14/2018 Tsh Ord6 TSH (3rd IS) 2.36 uIU/mL 04/14/2018 Pt Myp5696 PT 20.3 seconds 04/14/2018 Pt Fnf6319 INR 1.8 04/14/2018 Pt Pyi8861 Low Intensity - 1.5-2.0 04/14/2018 Pt Ewd6001 Mod intensity - 2.0-3.0 04/14/2018 Pt Qat6983 Hi intensity - 3.0-4.0 04/14/2018 Lipid Ord30 CHOL 149 mg/dL 04/14/2018 Lipid Ord30 HDL 49.0 mg/dl 04/14/2018 Lipid Ord30 TRIG 161 mg/dL 04/14/2018 Lipid Ord30 LDL 68 mg/dL 04/14/2018 Lipid Ord30 C/HDL 3.0 Ratio 04/14/2018 %Hba1C Qzh205 % HbA1c 50375-2 5.9 % 04/14/2018 %Hba1C Qyo732 Gluc Ave 123 mg/dL 04/14/2018 Comp Metabolic Vfs287 NA 140 mEq/L 04/14/2018 Comp Metabolic Oxq397 K 4.1 mEq/L 04/14/2018 Comp Metabolic Wea327 CL 105 mEq/L 04/14/2018 Comp Metabolic Tgc624 CO2 28.0 mEq/L 04/14/2018 Comp Metabolic Qau255 AN ION GAP 11 04/14/2018 Comp Metabolic Haf971 GL UCOSE 112 mg/dL 04/14/2018 Comp Metabolic Rgb124 Cr eat 1.0 mg/dL 04/14/2018 Comp Metabolic Wwy065 eG FR 58 ml/min/1.73m2 04/14 Comp Metabolic Edj400 BUN 20 mg/dL 04/14/2018 Comp Metabolic Ysa910 B/ C Ratio 20.2 Ratio 04/14/2018 Comp Metabolic Lfg009 CA LCIUM 10.0 mg/dL 04/14/2018 Comp Metabolic Zlb595 AL K PHOS 51 U/L 04/14/2018 Comp Metabolic Afq227 T(SGOT) 24 U/L 04/14/2018 Comp Metabolic Hub796 AL T(SGPT) 21 U/L 04/14/2018 Comp Metabolic Uaw879 BI LI T 0.8 mg/dL 04/14/2018 Comp Metabolic Iwa672 AL BUMIN 4.2 g/dL 04/14/2018 Comp Metabolic Xib865 TP RO 7.1 g/dL 04/14/2018 Comp Metabolic Arq291 GL OB 2.9 g/dL 04/14/2018 Comp Metabolic Zbk702 A/ G Ratio 1.5 Ratio 04/14/2018 Comp Metabolic Bqx182 Os mo 283 mOsmo 04/14/2018 Cbc With [...] 30.7 pg 04/14/2018 Cbc With Differential Ord2 Peach% 10.6 % 04/14/2018 Cbc With Differential Ord2 [...] 1.18 K/ul 04/14/2018 Cbc With Differential Ord2 Peach ABS# 0.5 K/ul 04/14/2018 Cbc With Differential Ord2 Eos ABS# 0.2 K/ul 04/14/2018 Cbc With Differential Ord2 Baso ABS# 0.1 K/ul 04/14/2018 Pt Tkp9794 PT 29.3 seconds 02/11/2018 Pt Xmt7052 INR 2.8 02/11/2018 Pt Qcs9242 Low Intensity - 1.5-2.0 02/11/2018 Pt Qca4648 Mod intensity - 2.0-3.0 02/11/2018 Pt Xub1141 Hi intensity - 3.0-4.0 02/11/2018 Comp Metabolic Jzo033 NA 141 mEq/L 01/05/2018 Comp Metabolic Kud285 K 3.7 mEq/L 01/05/2018 Comp Metabolic Ete155 CL 102 mEq/L 01/05/2018 Comp Metabolic Aim603 CO2 29.0 mEq/L 01/05/2018 Comp Metabolic Coe311 AN ION GAP 14 01/05/2018 Comp Metabolic Fuw129 GL UCOSE 136 mg/dL 01/05/2018 Comp Metabolic Tgu887 Cr eat 1.0 mg/dL 01/05/2018 Comp Metabolic Ouj850 eG FR 61 ml/min/1.73m2 01/05 Comp Metabolic Oci970 BUN 22 mg/dL 01/05/2018 Comp Metabolic Fdt627 B/ C Ratio 22.9 Ratio 01/05/2018 Comp Metabolic Omb712 CA LCIUM 9.7 mg/dL 01/05/2018 Comp Metabolic Okg812 AL K PHOS 57 U/L 01/05/2018 Comp Metabolic Trc479 T(SGOT) 21 U/L 01/05/2018 Comp Metabolic Gkw282 AL T(SGPT) 19 U/L 01/05/2018 Comp Metabolic Vsn473 BI LI T 0.9 mg/dL 01/05/2018 Comp Metabolic Bmn145 AL BUMIN 4.1 g/dL 01/05/2018 Comp Metabolic Ywk477 TP RO 7.1 g/dL 01/05/2018 Comp Metabolic Hyq598 GL OB 3.0 g/dL 01/05/2018 Comp Metabolic Mug030 A/ G Ratio 1.4 Ratio 01/05/2018 Comp Metabolic Uxl481 Os mo 287 mOsmo 01/05/2018 Free T4 Whk093 FREE T4 1.05 ng/dL 01/05/2018 %Hba1C Sce652 % HbA1c 78207-2 6.0 % 01/05/2018 %Hba1C Jye714 Gluc Ave 126 mg/dL 01/05/2018 Cbc With [...] 30.6 pg 01/05/2018 Cbc With Differential Ord2 Peach% 10.5 % 01/05/2018 Cbc With Differential Ord2 [...] 1.27 K/ul 01/05/2018 Cbc With Differential Ord2 [place] ABS# 0.5 K/ul 01/05/2018 Cbc With Differential Ord2 Eos ABS# 0.2 K/ul 01/05/2018 Cbc With Differential Ord2 Baso ABS# 0.1 K/ul 01/05/2018 Pt Qtd8382 PT 20.7 seconds 01/05/2018 Pt Jdz0606 INR 1.8 01/05/2018 Pt Iyd2046 Low Intensity - 1.5-2.0 01/05/2018 Pt Dyy5487 Mod intensity - 2.0-3.0 01/05/2018 Pt Rhs4683 Hi intensity - 3.0-4.0 01/05/2018 Tsh Ord6 TSH (3rd IS) 2.34 uIU/mL 01/05/2018 Lipid Ord30 CHOL 156 mg/dL 01/05/2018 Lipid Ord30 HDL 48.0 mg/dl 01/05/2018 Lipid Ord30 TRIG 207 mg/dL 01/05/2018 Lipid Ord30 LDL 67 mg/dL 01/05/2018 Lipid Ord30 C/HDL 3.3 Ratio 01/05/2018 Pt Ibt2544 PT 28.3 seconds 11/26/2017 Pt Aob1296 INR 2.6 11/26/2017 Pt Xnz8141 Low Intensity - 1.5-2.0 11/26/2017 Pt Rce6601 Mod intensity - 2.0-3.0 11/26/2017 Pt Vfn7526 Hi intensity - 3.0-4.0 11/26/2017 Pt Pwr5229 PT 36.5 seconds 11/19/2017 Pt Jdp7912 INR 3.6 11/19/2017 Pt Nge8200 Low Intensity - 1.5-2.0 11/19/2017 Pt Qxn7407 Mod intensity - 2.0-3.0 11/19/2017 Pt Zql0084 Hi intensity - 3.0-4.0 11/19/2017 Pt Ddz0615 PT 22.9 seconds 10/15/2017 Pt Mam0210 INR 2.0 10/15/2017 Pt Ibn8402 Low Intensity - 1.5-2.0 10/15/2017 Pt Icz8583 Mod intensity - 2.0-3.0 10/15/2017 Pt Ojx7054 Hi intensity - 3.0-4.0 10/15/2017 Pt Kck0269 PT 25.9 seconds 10/01/2017 Pt Pmp6574 INR 2.4 10/01/2017 Pt Pio8584 Low Intensity - 1.5-2.0 10/01/2017 Pt Ktd0269 Mod intensity - 2.0-3.0 10/01/2017 Pt Eef5423 Hi intensity - 3.0-4.0 10/01/2017 Pt Lpe6712 PT 20.6 seconds 09/24/2017 Pt Fep4588 INR 1.8 09/24/2017 Pt Bnk5071 Low Intensity - 1.5-2.0 09/24/2017 Pt Ihr7958 Mod intensity - 2.0-3.0 09/24/2017 Pt Tia7735 Hi intensity - 3.0-4.0 09/24/2017 Pt Xnx9099 PT 21.0 seconds 09/15/2017 Pt Hbw5786 INR 1.8 09/15/2017 Pt Eeo3133 Low Intensity - 1.5-2.0 09/15/2017 Pt Zbv7234 Mod intensity - 2.0-3.0 09/15/2017 Pt Swd1273 Hi intensity - 3.0-4.0 09/15/2017 Pt Emy5395 PT 19.0 seconds 09/03/2017 Pt Jof4084 INR 1.6 09/03/2017 Pt Cax3697 Low Intensity - 1.5-2.0 09/03/2017 Pt Daj7842 Mod intensity - 2.0-3.0 09/03/2017 Pt Tju1403 Hi intensity - 3.0-4.0 09/03/2017 Pt Xzz8451 PT 17.6 seconds 08/23/2017 Pt Jrv8262 INR 1.5 08/23/2017 Pt Ygp9855 Low Intensity - 1.5-2.0 08/23/2017 Pt Avo1913 Mod intensity - 2.0-3.0 08/23/2017 Pt Fqw7014 Hi intensity - 3.0-4.0 08/23/2017 Pt Cpp4665 PT 12.7 seconds 08/20/2017 Pt Von3635 INR 1.0 08/20/2017 Pt Fiq3610 Low Intensity - 1.5-2.0 08/20/2017 Pt Mpc6487 Mod intensity - 2.0-3.0 08/20/2017 Pt Pjt7275 Hi intensity - 3.0-4.0 08/20/2017 Pt Mgc5159 PT 12.9 seconds 08/17/2017 Pt Rto7154 INR 1.0 08/17/2017 Pt Wbi0153 Low Intensity - 1.5-2.0 08/17/2017 Pt Rrv4360 Mod intensity - 2.0-3.0 08/17/2017 Pt Sjd2108 Hi intensity - 3.0-4.0 08/17/2017 Pt Ssn1469 PT 18.5 seconds 08/10/2017 Pt Aqg1556 INR 1.6 08/10/2017 Pt Rim2775 Low Intensity - 1.5-2.0 08/10/2017 Pt Chh7026 Mod intensity - 2.0-3.0 08/10/2017 Pt Mrv2791 Hi intensity - 3.0-4.0 08/10/2017 Tsh Ord6 [...] 29.3 pg 05/27/2017 Cbc With Differential Ord2 Peach% 8.1 % 05/27/2017 Cbc With Differential Ord2 [...] 1.11 K/ul 05/27/2017 Cbc With Differential Ord2 [place] ABS# 0.6 K/ul 05/27/2017 Cbc With Differential Ord2 Eos ABS# 0.2 K/ul 05/27/2017 Cbc With Differential Ord2 Baso ABS# 0.1 K/ul 05/27/2017 Pt Pfk2373 PT 28.2 seconds 05/27/2017 Pt Swn2488 INR 2.6 05/27/2017 Pt Vwv7215 Low Intensity - 1.5-2.0 05/27/2017 Pt Xen7518 Mod intensity - 2.0-3.0 05/27/2017 Pt Mmt4112 Hi intensity - 3.0-4.0 05/27/2017 Lipid Ord30 CHOL 167 mg/dL 05/27/2017 Lipid Ord30 HDL 49.0 mg/dl 05/27/2017 Lipid Ord30 TRIG 347 mg/dL 05/27/2017 Lipid Ord30 LDL 49 mg/dL 05/27/2017 Lipid Ord30 C/HDL 3.4 Ratio 05/27/2017 Magnesium Ord90 Mag 1.4 mg/dL 05/27/2017 %Hba1C Vih604 % HbA1c 80556-5 5.9 % 05/27/2017 %Hba1C Uer702 Gluc Ave 123 mg/dL 05/27/2017 Comp Metabolic Kdj243 NA 138 mEq/L 05/27/2017 Comp Metabolic Nyt490 K 4.1 mEq/L 05/27/2017 Comp Metabolic Jas685 CL 101 mEq/L 05/27/2017 Comp Metabolic Yys658 CO2 31.0 mEq/L 05/27/2017 Comp Metabolic Lij407 AN ION GAP 10 05/27/2017 Comp Metabolic Qdy282 GL UCOSE 117 mg/dL 05/27/2017 Comp Metabolic Ydq802 Cr eat 0.9 mg/dL 05/27/2017 Comp Metabolic Jmb938 eG FR 62 ml/min/1.73m2 05/27 Comp Metabolic Kry222 BUN 25 mg/dL 05/27/2017 Comp Metabolic Nli754 B/ C Ratio 26.6 Ratio 05/27/2017 Comp Metabolic Hax658 CA LCIUM 9.5 mg/dL 05/27/2017 Comp Metabolic Gep978 AL K PHOS 73 U/L 05/27/2017 Comp Metabolic Dse486 T(SGOT) 18 U/L 05/27/2017 Comp Metabolic Lmi115 AL T(SGPT) 12 U/L 05/27/2017 Comp Metabolic Wdx075 BI LI T 0.5 mg/dL 05/27/2017 Comp Metabolic Ydz988 AL BUMIN 4.1 g/dL 05/27/2017 Comp Metabolic Nqr659 TP RO 7.1 g/dL 05/27/2017 Comp Metabolic Uea583 GL OB 3.0 g/dL 05/27/2017 Comp Metabolic Sdb592 A/ G Ratio 1.3 Ratio 05/27/2017 Comp Metabolic Ske549 Os mo 281 mOsmo 05/27/2017 Free T4 Xtb212 FREE T4 0.91 ng/dL 05/27/2017 Pt Vmt1645 PT 29.2 seconds 04/16/2017 Pt Obe1189 INR 2.7 04/16/2017 Pt Moh3735 Low Intensity - 1.5-2.0 04/16/2017 Pt Hhu6086 Mod intensity - 2.0-3.0 04/16/2017 Pt Ftk2475 Hi intensity - 3.0-4.0 04/16/2017 Pt Trj4208 PT 30.7 seconds 03/31/2017 Pt Xfl4332 INR 2.9 03/31/2017 Pt Fhg9687 Low Intensity - 1.5-2.0 03/31/2017 Pt Bqi1174 Mod intensity - 2.0-3.0 03/31/2017 Pt Mts4448 Hi intensity - 3.0-4.0 03/31/2017 Pt Ozm1336 PT 21.3 seconds 03/26/2017 Pt Tzw4100 INR 1.9 03/26/2017 Pt Sdj5184 Low Intensity - 1.5-2.0 03/26/2017 Pt Wms9936 Mod intensity - 2.0-3.0 03/26/2017 Pt Zvx1722 Hi intensity - 3.0-4.0 03/26/2017 Pt Pdl4749 PT 19.8 seconds 03/22/2017 Pt Ehv1493 INR 1.7 03/22/2017 Pt Dss9897 Low Intensity - 1.5-2.0 03/22/2017 Pt Uir4297 Mod intensity - 2.0-3.0 03/22/2017 Pt Nrs1052 Hi intensity - 3.0-4.0 03/22/2017 Pt Jtm2276 PT 15.6 seconds 03/19/2017 Pt Xku6522 INR 1.3 03/19/2017 Pt Qrd3688 Low Intensity - 1.5-2.0 03/19/2017 Pt Ftv6327 Mod intensity - 2.0-3.0 03/19/2017 Pt Smq2393 Hi intensity - 3.0-4.0 03/19/2017 Pt Wgq2796 PT 13.7 seconds 03/15/2017 Pt Dar2794 INR 1.1 03/15/2017 Pt Jjs3546 Low Intensity - 1.5-2.0 03/15/2017 Pt Azd1487 Mod intensity - 2.0-3.0 03/15/2017 Pt Huc9026 Hi intensity - 3.0-4.0 03/15/2017 Pt Nnv0214 PT 25.8 seconds 01/28/2017 Pt Uol1397 INR 2.4 01/28/2017 Pt Kqi6948 Low Intensity - 1.5-2.0 01/28/2017 Pt Wcr0457 Mod intensity - 2.0-3.0 01/28/2017 Pt Rxs9578 Hi intensity - 3.0-4.0 01/28/2017 %Hba1C Mhj762 % HbA1c 10721-7 6.4 % 10/23/2016 %Hba1C Lsc634 Gluc Ave 137 mg/dL 10/23/2016 Comp Metabolic Pgx534 NA 138 mEq/L 10/23/2016 Comp Metabolic Boe691 K 3.4 mEq/L 10/23/2016 Comp Metabolic Tuf816 CL 100 mEq/L 10/23/2016 Comp Metabolic Hne893 CO2 30.0 mEq/L 10/23/2016 Comp Metabolic Fer652 AN ION GAP 11 10/23/2016 Comp Metabolic Svc531 GL UCOSE 139 mg/dL 10/23/2016 Comp Metabolic Sqh302 Cr eat 0.9 mg/dL 10/23/2016 Comp Metabolic Pok505 eG FR 62 ml/min/1.73m2 10/23 Comp Metabolic Uew907 BUN 22 mg/dL 10/23/2016 Comp Metabolic Syr049 B/ C Ratio 23.4 Ratio 10/23/2016 Comp Metabolic Xma147 CA LCIUM 8.7 mg/dL 10/23/2016 Comp Metabolic Doh685 AL K PHOS 66 U/L 10/23/2016 Comp Metabolic Dan730 T(SGOT) 20 U/L 10/23/2016 Comp Metabolic Hqu606 AL T(SGPT) 10 U/L 10/23/2016 Comp Metabolic Mwq033 BI LI T 0.5 mg/dL 10/23/2016 Comp Metabolic Tug766 AL BUMIN 3.5 g/dL 10/23/2016 Comp Metabolic Nrd433 TP RO 6.3 g/dL 10/23/2016 Comp Metabolic Unh778 GL OB 2.8 g/dL 10/23/2016 Comp Metabolic Ytw513 A/ G Ratio 1.3 Ratio 10/23/2016 Comp Metabolic Tpf153 Os mo 281 mOsmo 10/23/2016 Pt Fbb9418 PT 26.8 seconds 10/23/2016 Pt Mll8767 INR 2.7 10/23/2016 Pt Cnp4474 Low Intensity - 1.5-2.0 10/23/2016 Pt Tyz1525 Mod intensity - 2.0-3.0 10/23/2016 Pt Kdw5089 Hi intensity - 3.0-4.0 10/23/2016 Pt Ehm2902 PT 28.3 seconds 09/25/2016 Pt Emw8671 INR 2.8 09/25/2016 Pt Xqe8089 Low Intensity - 1.5-2.0 09/25/2016 Pt Cwf9768 Mod intensity - 2.0-3.0 09/25/2016 Pt Hfk5337 Hi intensity - 3.0-4.0 09/25/2016 Metabolic Ord15 [...] Metabolic Ord15 CALCIUM 8.8 mg/dL 09/25/2016 Pt Ukd6196 PT 30.6 seconds 09/11/2016 Pt Prr4753 INR 3.2 09/11/2016 Pt Awd3610 Low Intensity - 1.5-2.0 09/11/2016 Pt Pwm4281 Mod intensity - 2.0-3.0 09/11/2016 Pt Soc8898 Hi intensity - 3.0-4.0 09/11/2016 Comp Metabolic Rbm565 NA 138 mEq/L 09/11/2016 Comp Metabolic Xta148 K 4.4 mEq/L 09/11/2016 Comp Metabolic Hxc854 CL 103 mEq/L 09/11/2016 Comp Metabolic Gta542 CO2 31.0 mEq/L 09/11/2016 Comp Metabolic Qfs080 AN ION GAP 8 09/11/2016 Comp Metabolic Ihl701 GL UCOSE 146 mg/dL 09/11/2016 Comp Metabolic Ngn228 Cr eat 1.0 mg/dL 09/11/2016 Comp Metabolic Bjb980 eG FR 60 ml/min/1.73m2 09/11 Comp Metabolic Bqz444 BUN 16 mg/dL 09/11/2016 Comp Metabolic App495 B/ C Ratio 16.5 Ratio 09/11/2016 Comp Metabolic Jla962 CA LCIUM 8.7 mg/dL 09/11/2016 Comp Metabolic Tlm823 AL K PHOS 52 U/L 09/11/2016 Comp Metabolic Bum465 T(SGOT) 19 U/L 09/11/2016 Comp Metabolic Smf073 AL T(SGPT) 11 U/L 09/11/2016 Comp Metabolic Ewm126 BI LI T 0.7 mg/dL 09/11/2016 Comp Metabolic Qgl438 AL BUMIN 3.3 g/dL 09/11/2016 Comp Metabolic Fqe100 TP RO 5.8 g/dL 09/11/2016 Comp Metabolic Pft828 GL OB 2.5 g/dL 09/11/2016 Comp Metabolic Tef363 A/ G Ratio 1.3 Ratio 09/11/2016 Comp Metabolic Vkj295 Os mo 280 mOsmo 09/11/2016 C-Reactive Protein Qnt Crqnt CRP 0.1 mg/dl 08/21/2016 Comp Metabolic Dna009 NA 139 mEq/L 08/21/2016 Comp Metabolic Owb655 K 4.1 mEq/L 08/21/2016 Comp Metabolic Scb396 CL 102 mEq/L 08/21/2016 Comp Metabolic Ejk995 CO2 30.0 mEq/L 08/21/2016 Comp Metabolic Kju242 AN ION GAP 11 08/21/2016 Comp Metabolic Xfp037 GL UCOSE 148 mg/dL 08/21/2016 Comp Metabolic Pbl823 Cr eat 1.0 mg/dL 08/21/2016 Comp Metabolic Spi569 eG FR 55 ml/min/1.73m2 08/21 Comp Metabolic Wii456 BUN 21 mg/dL 08/21/2016 Comp Metabolic Gct553 B/ C Ratio 20.2 Ratio 08/21/2016 Comp Metabolic Rld721 CA LCIUM 9.4 mg/dL 08/21/2016 Comp Metabolic Htw560 AL K PHOS 63 U/L 08/21/2016 Comp Metabolic Xlt171 T(SGOT) 23 U/L 08/21/2016 Comp Metabolic Czz876 AL T(SGPT) 16 U/L 08/21/2016 Comp Metabolic Qiv077 BI LI T 0.6 mg/dL 08/21/2016 Comp Metabolic Zvu263 AL BUMIN 3.9 g/dL 08/21/2016 Comp Metabolic Iyf430 TP RO 6.8 g/dL 08/21/2016 Comp Metabolic Fgf352 GL OB 2.9 g/dL 08/21/2016 Comp Metabolic Yuz453 A/ G Ratio 1.4 Ratio 08/21/2016 Comp Metabolic Fpo252 Os mo 283 mOsmo 08/21/2016 Sed Rate Ord21 ESR 16 mm/hr 08/21/2016 Pt Ccy4535 PT 27.2 seconds 08/21/2016 Pt Dzd1323 INR 2.7 08/21/2016 Pt Efd0489 Low Intensity - 1.5-2.0 08/21/2016 Pt Hxk8695 Mod intensity - 2.0-3.0 08/21/2016 Pt Zob0256 Hi intensity - 3.0-4.0 08/21/2016 Magnesium Ord90 Mag 1.9 mg/dL 08/21/2016 Pt Ryd8672 PT 25.9 seconds 06/17/2016 Pt Rfu1339 INR 2.5 06/17/2016 Pt Cvm1286 Low Intensity - 1.5-2.0 06/17/2016 Pt Vrb1198 Mod intensity - 2.0-3.0 06/17/2016 Pt Wwm8977 Hi intensity - 3.0-4.0 06/17/2016 Tsh Ord6 hTSH II 2.13 uIU/mL 06/08/2016 Free T4 Ncf054 FREE T4 0.79 ng/dL 06/08/2016 Cbc With [...] 26.8 pg 06/08/2016 Cbc With Differential Ord2 Peach% 12.0 % 06/08/2016 Cbc With Differential Ord2 [...] 1.40 K/ul 06/08/2016 Cbc With Differential Ord2 Peach ABS# 0.7 K/ul 06/08/2016 Cbc With Differential Ord2 Eos ABS# 0.3 K/ul 06/08/2016 Cbc With Differential Ord2 Baso ABS# 0.1 K/ul 06/08/2016 %Hba1C Jex028 % HbA1c 14244-2 6.2 % 06/08/2016 %Hba1C Nbz429 Gluc Ave 131 mg/dL 06/08/2016 Comp Metabolic Tbq236 NA 138 mEq/L 06/08/2016 Comp Metabolic Bdk466 K 3.9 mEq/L 06/08/2016 Comp Metabolic Prb696 CL 105 mEq/L 06/08/2016 Comp Metabolic Kqy334 CO2 27.0 mEq/L 06/08/2016 Comp Metabolic Jji267 AN ION GAP 10 06/08/2016 Comp Metabolic Xfg642 GL UCOSE 127 mg/dL 06/08/2016 Comp Metabolic Ewd775 Cr eat 1.0 mg/dL 06/08/2016 Comp Metabolic Hiz628 eG FR 59 ml/min/1.73m2 06/08 Comp Metabolic Yjd111 BUN 19 mg/dL 06/08/2016 Comp Metabolic Pwb640 B/ C Ratio 19.4 Ratio 06/08/2016 Comp Metabolic Jgj440 CA LCIUM 9.2 mg/dL 06/08/2016 Comp Metabolic Wgo569 AL K PHOS 77 U/L 06/08/2016 Comp Metabolic Xnp521 T(SGOT) 19 U/L 06/08/2016 Comp Metabolic Iar700 AL T(SGPT) 13 U/L 06/08/2016 Comp Metabolic Ntw862 BI LI T 0.5 mg/dL 06/08/2016 Comp Metabolic Xsx012 AL BUMIN 3.8 g/dL 06/08/2016 Comp Metabolic Hbb722 TP RO 6.6 g/dL 06/08/2016 Comp Metabolic Far839 GL OB 2.8 g/dL 06/08/2016 Comp Metabolic Bql240 A/ G Ratio 1.4 Ratio 06/08/2016 Comp Metabolic Its242 Os mo 280 mOsmo 06/08/2016 Pt Hmn1072 PT 36.1 seconds 06/08/2016 Pt Mvt7750 INR 3.9 06/08/2016 Pt Wms3572 Low Intensity - 1.5-2.0 06/08/2016 Pt Fhf5866 Mod intensity - 2.0-3.0 06/08/2016 Pt Mvj2550 Hi intensity - 3.0-4.0 06/08/2016 Lipid Ord30 CHOL 149 mg/dL 06/08/2016 Lipid Ord30 HDL 46.0 mg/dl 06/08/2016 Lipid Ord30 TRIG 279 mg/dL 06/08/2016 Lipid Ord30 LDL 47 mg/dL 06/08/2016 Lipid Ord30 C/HDL 3.2 Ratio 06/08/2016 Pt Wqa3231 PT 30.9 seconds 02/12/2016 Pt Rdj6817 INR 3.2 02/12/2016 Pt Wuo2355 Low Intensity - 1.5-2.0 02/12/2016 Pt Dkz9965 Mod intensity - 2.0-3.0 02/12/2016 Pt Ipq7913 Hi intensity - 3.0-4.0 02/12/2016 Free T4 Dnv355 FREE T4 1.24 ng/dL 09/27/2015 %Hba1C Gky816 % HbA1c 80447-2 6.4 % 09/27/2015 %Hba1C Vkr092 Gluc Ave 137 mg/dL 09/27/2015 Tsh Ord6 hTSH II 0.37 uIU/mL 09/27/2015 Pt Jbu8223 PT 26.2 seconds 09/27/2015 Pt Kzi5657 INR 2.5 09/27/2015 Pt Zxq0909 Low Intensity - 1.5-2.0 09/27/2015 Pt Csc1216 Mod intensity - 2.0-3.0 09/27/2015 Pt Bqw3560 Hi intensity - 3.0-4.0 09/27/2015 Pt Sue0706 PT 27.6 seconds 2015 Pt Rkh9609 INR 2.7 2015 Pt Rrq7431 Low Intensity - 1.5-2.0 2015 Pt Wof9251 Mod intensity - 2.0-3.0 2015 Pt Nni0728 Hi intensity - 3.0-4.0 2015 %Hba1C Egf878 % HbA1c 90758-1 6.1 % 06/11/2015 %Hba1C Nvf632 Gluc Ave 128 mg/dL 06/11/2015 Cbc With [...] Ord2 RDW 15.8 % 06/10/2015 Comp Metabolic Wtz459 NA 139 mEq/L 06/10/2015 Comp Metabolic Ixh988 K 4.1 mEq/L 06/10/2015 Comp Metabolic Mpi724 CL 105 mEq/L 06/10/2015 Comp Metabolic Bbn877 CO2 27.0 mEq/L 06/10/2015 Comp Metabolic Wfu947 AN ION GAP 11 06/10/2015 Comp Metabolic Qls246 GL UCOSE 127 mg/dL 06/10/2015 Comp Metabolic Pfl199 Cr eat 1.0 mg/dL 06/10/2015 Comp Metabolic Irk347 eG FR 59 ml/min/1.73m2 06/10 Comp Metabolic Dlo446 BUN 21 mg/dL 06/10/2015 Comp Metabolic Weo702 B/ C Ratio 21.2 Ratio 06/10/2015 Comp Metabolic Gam042 CA LCIUM 9.2 mg/dL 06/10/2015 Comp Metabolic Izb760 AL K PHOS 87 U/L 06/10/2015 Comp Metabolic Dmr656 T(SGOT) 20 U/L 06/10/2015 Comp Metabolic Zzh181 AL T(SGPT) 17 U/L 06/10/2015 Comp Metabolic Ext684 BI LI T 0.4 mg/dL 06/10/2015 Comp Metabolic Jiu967 AL BUMIN 4.1 g/dL 06/10/2015 Comp Metabolic Szu735 TP RO 7.2 g/dL 06/10/2015 Comp Metabolic Bxt500 GL OB 3.1 g/dL 06/10/2015 Comp Metabolic Kyl557 A/ G Ratio 1.3 Ratio 06/10/2015 Comp Metabolic Lvz880 Os mo 282 mOsmo 06/10/2015 Tsh Ord6 hTSH II 0.86 uIU/mL 06/10/2015 Lipid Ord30 CHOL 161 mg/dL 06/10/2015 Lipid Ord30 HDL 49.0 mg/dl 06/10/2015 Lipid Ord30 TRIG 208 mg/dL 06/10/2015 Lipid Ord30 LDL 70 mg/dL 06/10/2015 Lipid Ord30 C/HDL 3.3 Ratio 06/10/2015 Pt Vzp4550 PT 25.0 seconds 04/09/2015 Pt Hyu4844 INR 2.4 04/09/2015 Pt Fbn2910 Low Intensity - 1.5-2.0 04/09/2015 Pt Aqp3046 Mod intensity - 2.0-3.0 04/09/2015 Pt Fac0568 Hi intensity - 3.0-4.0 04/09/2015 Free T4 Baz612 FREE T4 1.05 ng/dL 01/22/2015 Pt Sbh6565 PT 27.2 seconds 01/22/2015 Pt Clq0077 INR 2.6 01/22/2015 Pt Kwp8201 Low Intensity - 1.5-2.0 01/22/2015 Pt Tvb6330 Mod intensity - 2.0-3.0 01/22/2015 Pt Bax1435 Hi intensity - 3.0-4.0 01/22/2015 Cbc With [...] Differential Ord2 RDW 15.2 % 01/22/2015 B12 Bij763 B12 402.00 pg/ml 01/22/2015 Tsh Ord6 hTSH II 0.65 uIU/mL 01/22/2015 Lipid Ord30 CHOL 166 mg/dL 01/22/2015 Lipid Ord30 HDL 48.0 mg/dl 01/22/2015 Lipid Ord30 TRIG 264 mg/dL 01/22/2015 Lipid Ord30 LDL 65 mg/dL 01/22/2015 Lipid Ord30 C/HDL 3.5 Ratio 01/22/2015 Comp Metabolic Hfx548 NA 138 mEq/L 01/22/2015 Comp Metabolic Ebd532 K 4.1 mEq/L 01/22/2015 Comp Metabolic Wpf852 CL 104 mEq/L 01/22/2015 Comp Metabolic Fkl434 CO2 29.0 mEq/L 01/22/2015 Comp Metabolic Hrq408 AN ION GAP 9 01/22/2015 Comp Metabolic Rkm367 GL UCOSE 106 mg/dL 01/22/2015 Comp Metabolic Vua904 Cr eat 0.9 mg/dL 01/22/2015 Comp Metabolic Gjd551 eG FR 63 ml/min/1.73m2 01/22 Comp Metabolic Qfs727 BUN 21 mg/dL 01/22/2015 Comp Metabolic Rog236 B/ C Ratio 22.3 Ratio 01/22/2015 Comp Metabolic Jzh577 CA LCIUM 9.4 mg/dL 01/22/2015 Comp Metabolic Stk664 AL K PHOS 83 U/L 01/22/2015 Comp Metabolic Rhl752 T(SGOT) 23 U/L 01/22/2015 Comp Metabolic Kmn688 AL T(SGPT) 18 U/L 01/22/2015 Comp Metabolic Tlr690 BI LI T 0.8 mg/dL 01/22/2015 Comp Metabolic Gif845 AL BUMIN 4.2 g/dL 01/22/2015 Comp Metabolic Bay537 TP RO 7.3 g/dL 01/22/2015 Comp Metabolic Gmj432 GL OB 3.1 g/dL 01/22/2015 Comp Metabolic Rzi615 A/ G Ratio 1.4 Ratio 01/22/2015 Comp Metabolic Rtu070 Os mo 279 mOsmo 01/22/2015 Review of [...] Procedure Codes Date THER/PROPH/DIAG INJ SC/IM CPT-4: 63792 09/02/2018 TRIAMCINOLONE ACET I [place] NOS CPT-4: J3301 09/02/2018 URINALYSIS NONAUTO W /O SCOPE CPT-4: 67372 03/05/2017 Vital Signs Date Vital 09/02/2018 Blood Pressure 1: 128/72 Code: 8480-6 BMI: 38.2 Code: 93026-8 Heart Rate 1: 80 bpm Height: 5'1" SpO2: 98% Weight: 202 lbs 04/14/2018 Blood Pressure 1: 116/78 Code: 8480-6 BMI: 41.6 Code: 69796-7 Heart Rate 1: 72 bpm Height: 5'1" SpO2: 98% Weight: 220 lbs 01/18/2018 Blood Pressure 1: 132/74 Code: 8480-6 BMI: 43.5 Code: 04498-3 Heart Rate 1: 70 bpm Height: 5'1" SpO2: 97% Weight: 230 lbs 01/04/2018 Blood Pressure 1: 134/76 Code: 8480-6 BMI: 42.7 Code: 86106-3 Heart Rate 1: 83 bpm Height: 5'1" SpO2: 98% Weight: 226 lbs 09/23/2017 Blood Pressure 1: 124/76 Code: 8480-6 BMI: 42.3 Code: 57772-9 Heart Rate 1: 94 bpm Height: 5'1" SpO2: 96% Weight: 224 lbs 05/27/2017 Blood Pressure 1: 146/78 Code: 8480-6 BMI: 41.4 Code: 56259-4 Heart Rate 1: 85 bpm Height: 5'1" SpO2: 98% Weight: 219 lbs 02/24/2017 Blood Pressure 1: 138/66 Code: 8480-6 BMI: 41.4 Code: 91648-5 Heart Rate 1: 78 bpm Height: 5'1" SpO2: 97% Weight: 219 lbs 11/02/2016 Blood Pressure 1: 144/72 Code: 8480-6 BMI: 46.1 Code: 58754-1 Heart Rate 1: 78 bpm Height: 5'1" SpO2: 98% Weight: 244 lbs 09/30/2016 Blood Pressure 1: 130/76 Code: 8480-6 BMI: 45.0 Code: 67722-3 Heart Rate 1: 86 bpm Height: 5'1" SpO2: 98% Weight: 238 lbs 09/10/2016 Blood Pressure 1: 136/68 Code: 8480-6 BMI: 46.3 Code: 80192-3 Heart Rate 1: 83 bpm Height: 5'1" SpO2: 98% Weight: 245 lbs 08/20/2016 Blood Pressure 1: 142/78 Code: 8480-6 BMI: 45.3 Code: 01103-6 Heart Rate 1: 84 bpm Height: 5'1" SpO2: 99% Weight: 240 lbs 06/08/2016 Blood Pressure 1: 134/76 Code: 8480-6 BMI: 44.2 Code: 66812-7 Heart Rate 1: 86 bpm Height: 5'1" SpO2: 96% Weight: 234 lbs 04/02/2016 Blood Pressure 1: 142/70 Code: 8480-6 BMI: 44.6 Code: 53505-8 Heart Rate 1: 78 bpm Height: 5'1" SpO2: 97% Weight: 236 lbs 01/14/2016 Blood Pressure 1: 146/72 Code: 8480-6 BMI: 44.2 Code: 08238-8 Heart Rate 1: 86 bpm Height: 5'1" SpO2: 96% Weight: 234 lbs 10/02/2015 Blood Pressure 1: 158/76 Code: 8480-6 BMI: 44.2 Code: 18829-5 Heart Rate 1: 67 bpm Height: 5'1" SpO2: 97% Weight: 234 lbs 07/15/2015 Blood Pressure 1: 200/90 Code: 8480-6 Blood Pressure 1: 148/78 Code: 8480-6 BMI: 44.0 Code: 61882-9 Heart Rate 1: 89 bpm Height: 5'1" SpO2: 97% Weight: 233 lbs 06/10/2015 Blood Pressure 1: 140/82 Code: 8480-6 BMI: 44.0 Code: 39739-3 Heart Rate 1: 78 bpm Height: 5'1" [...] int ermittent 01/18/2018 None hypertension Quality kenji ebrnal hypertension 01/18/2018 None hypertension Onset and Resolution [...] wearing crocs and there was a new serbian on the floor: her foot didn't move [...] Encounters Encounter Performer Loca tion Codes Date 99957 EST. PATIENT, LEVEL IV Diagnosis: Other acute sinusitis[ICD10: J01.80] Diagnosis: Other allergic rhinitis[ICD10: J30.89] Nata Almanza MD, [facility] CPT-4: 86673 09/02/2018 [id number] 95827 EST. P ATIENT, LEVEL IV Diagnosis: Essential (primary) hypertension[ICD10: I10] Diagnosis: Hypothyroidism, unspecified[ICD10: E03.9] Diagnosis: Impaired fasting glucose[ICD10: R73.01] Diagnosis: 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[ICD10: Z79.01] Edna Almanza MD, [facility] CPT-4: 54399 04/14/2018 [id number] 00388 EST. P ATIENT, LEVEL III Diagnosis: Localized edema[ICD10: R60.0] Diagnosis: Gastro-esophageal reflux disease without esophagitis[ICD10: K21.9] Edna Almanza MD, [facility] CPT-4: 97571 01/18/2018 [id number]) 34609 EST. P ATIENT, LEVEL IV Diagnosis: Gastro-esophageal reflux disease without esophagitis[ICD10: K21.9] Diagnosis: Localized edema[ICD10: R60.0] Diagnosis: Essential (primary) hypertension[ICD10: I10] Diagnosis: Hypothyroidism, unspecified[ICD10: E03.9] Diagnosis: Impaired fasting glucose[ICD10: R73.01] dEna Almanza MD, [facility] CPT-4: 21432 01/04/2018 ([id number]) 08285 EST. 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 P ATIENT, LEVEL IV Diagnosis: Essential (primary) hypertension[ICD10: I10] Diagnosis: Mixed hyperlipidemia[ICD10: E78.2] Diagnosis: Hypothyroidism, unspecified[ICD10: E03.9] Diagnosis: Impaired fasting glucose[ICD10: R73.01] Diagnosis: 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[ICD10: Z79.01] Edna Almanza MD, [facility] CPT-4: 32011 05/27/2017 54897 EST. PATIENT, LEVEL III Diagnosis: Pain in right hip[ICD10: M25.551] Nata Almanza MD, [facility] CPT-4: 61376 02/24/2017 ([id number]) 76115 EST. P ATIENT, LEVEL IV Diagnosis: Essential (primary) hypertension[ICD10: I10] Diagnosis: Localized edema[ICD10: R60.0] Diagnosis: Pain in right hip[ICD10: M25.551] Sarai Almanza MD, [facility] CPT-4: 81300 11/02/2016 ([id number]) 54804 EST. P ATIENT, LEVEL IV Diagnosis: Essential (primary) hypertension[ICD10: I10] Diagnosis: Localized edema[ICD10: R60.0] Sarai Almanza MD, [facility] CPT-4: 02018 09/30/2016 50088 EST. PATIENT, LEVEL IV Diagnosis: Localized edema[ICD10: R60.0] Diagnosis: Pain in joints of left hand[ICD10: M25.542] Diagnosis: Pain in joints of right hand[ICD10: M25.541] Nata Almanza MD, [facility] CPT-4: 47352 09/10/2016 54824 EST. PATIENT, LEVEL IV Diagnosis: Localized edema[ICD10: R60.0] Diagnosis: Pain in joints of left hand[ICD10: M25.542] Diagnosis: Pain in joints of right hand[ICD10: M25.541] Diagnosis: Other fatigue[ICD10: R53.83] Nata Almanza MD, [facility] CPT-4: 35296 08/20/2016 47354 EST. PATIENT, LEVEL IV Diagnosis: Essential (primary) hypertension[ICD10: I10] Diagnosis: Other mcfp (current) drug therapy[ICD10: Z79.899] Diagnosis: Tinnitus, bilateral[ICD10: H93.13] Nata Almanza MD, [facility] CPT-4: 50319 06/08/2016 29951 EST. PATIENT, LEVEL IV Diagnosis: Other allergic rhinitis[ICD10: J30.89] Diagnosis: Acute laryngopharyngitis[ICD10: J06.0] Nata Almanza MD, [facility] CPT-4: 37922 04/02/2016 91664 EST. PATIENT, LEVEL IV Diagnosis: Left upper quadrant pain[ICD10: R10.12] Nata Almanza MD, [facility] CPT-4: 55855 01/14/2016 78741 EST. PATIENT, LEVEL IV Diagnosis: Pain in left shoulder[ICD10: M25.512] Diagnosis: Body mass index (BMI) 40.0-44.9, adult[ICD10: Z68.41] Nata Almanza MD, [facility] CPT-4: 64227 10/02/2015 25377 EST. PATIENT, LEVEL IV Diagnosis: Pain in left leg[ICD10: M79.605] Diagnosis: Other mcfp (current) drug therapy[ICD10: Z79.899] Nata Almanza MD, [facility] CPT-4: 29780 07/15/2015 ([id number]) 05768 EST. 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: Other mcfp (current) drug therapy[ICD10: Z79.899] [facility] CPT-4: 99329 06/10/2015 ([id number]) [facility] 4 Diagnosis: ESSENTIAL HYPERTENSION[ICD9: 401.9] Diagnosis: HYPOTHYROIDISM[ICD9: 244.9] Diagnosis: ENCNTR LONG-RX USE NEC[ICD9: V58.69] Diagnosis: HYPERLIPIDEMIA[ICD9: 272.4] Diagnosis: Vitamin B12 deficiency[ICD9: 266.2] Diagnosis: Status post gastric surgery[ICD9: V45.89] Diagnosis: Snoring[ICD9: 786.09] [facility] CPT-4: 49907 01/22/2015 Plan of Care Planned Activity Notes [...] allergy spray. 09/02/2018 Appointment: Nata Hsu WPtel: [address] [place], [place] [phone] (15 min) Moderate 09/02/2018 Patient Education: Patient [...] Hgb A1C 04/14/2018 Appointment: Edna Douglas WPtel: [facility] [phone] (15 min) Moderate 04/14/2018 Patient Education: Patient [...] to further attempt to reduce peripheral edema. LEXY-jyjmuoyl-bejcwyrm prilosec BID and carafate QID -discussed low spice, low acidic diet 01/18/2018 Appointment: Edna Douglas WPtel: [phone] [phone] (15 min) Moderate 01/18/2018 Patient Education: Patient [...] control. 01/04/2018 Appointment: [phone] [phone] [place] (30 min) Complex 01/04/2018 Patient Education: Patient Medication Summary Completed 01/04/2018 Care Plan: SCREENINGMAMMOGRAPHYDIGITAL LOINC : 28390-3 Pending 01/04/2018 Visit Plan: Abdominal hernia - not able to be taken to surgery by local providers and pt has been seen at [facility] and that surgeon felt like Wilson would be better served by Dr. Betancur [...] home. 09/23/2017 Appointment: [phone] [place] (15 min) Moderate 09/23/2017 Patient Education: [...] medications. 05/27/2017 Appointment: Ed[facility] [phone] [phone] (30 min) Complex 05/27/2017 Patient Education: Patient [...] Dr. Palacios. 02/24/2017 Appointment: Nata Hsu [facility]el[facility] [phone] [phone] (30 min) Complex 02/24/2017 Patient Education: Patient [...] dr. Chaney. 11/02/2016 Appointment: Sarai Almanza WPtel: [phone] [facility] (15 min) Moderate 11/02/2016 Patient Education: Patient [...] peripheral edema. 09/30/2016 Appointment: Sarai Almanza WPtel: [phone] [facility] (15 min) Moderate 09/30/2016 Patient Education: Patient [...] edema. 09/10/2016 Appointment: Nata Hsu WPtel: [phone] [facility] (30 min) Complex 09/10/2016 Patient Education: Patient [...] peripheral edema. 08/20/2016 Appointment: Nata Hsu WPtel: [facility] [place]6 [facility] (30 min) Complex 08/20/2016 Patient Education: Patient Medication Summary Completed 08/20/2016 Referral: Otf Lee [address] Referral Initiated 07/02/2016 Visit Plan: Chronic [...] 06/08/2016 Care Plan: Referral Order SNOMED-CT : [id number] Pending 06/08/2016 Visit Plan: URI - Pt [...] allergy spray. 04/02/2016 Appointment: Nata H[facility]utel: [phone] [facility] [place] (30 min) Complex 04/02/2016 Patient Education: [...] acute pain 01/14/2016 Appointment: Edna Douglas WPtel: [facility] [phone] [place] (30 min) Complex 01/14/2016 Patient Education: Patient Medication Summary Completed 01/14/2016 Patient Education: Obesity Completed 01/14/2016 Care Plan: BMI Above normal followup DAVID F-MGMT EDUC & TRAIN 1 PT Pending 10/24/2015 Care Plan: X-RAY EXAM OF SHOULDER LOINC : 02448-8 Pending 10/24/2015 Visit Plan: Left shoulder pain [...] weight check. 10/02/2015 Appointment: Edna Douglas WPtel: [phone] [phone] [place] (15 min) Moderate 10/02/2015 Patient Education: [...] ses Completed 06/10/2015 Appointment: Sarai Almanza WPtel: [facility] [phone] (15 min) Moderate 04/22/2015 Visit Plan: Hypertension [...] have surgical fixation - planning occurring at [facility]. Snoring - Sleep apnea symptoms with difficulty [...] to medications. 01/22/2015 Appointment: Sarai Almanza WPtel: [address] [place] [phone] [place] (S) New Patient 01/22/2015 Patient Education: Patient Medication Summary Completed 01/22/2015 Patient Education: Hypertension Completed 01/22/2015 Referral: Otf Lee [facility] Referral Initiated Instructions Comment CONTINUE LASIX NE EDED FOR SWELLING CHECK [...] months based on previous levels of control. steroid shot today prednisone taper - 60mg [...] in the nasal steroid allergy spray. . Chronic Anticoagul ant use - Pt [...] now - Will refer to Dr. Lee . Hypertension - wel l controlled - [...] to further attempt to reduce peripheral edema. QXYF-dleodrwl-mmunrhwz prilosec BID and carafate QID -discussed low spice, low acidic diet dr almanza will eusebio e the staff [...] have surgical fixation - planning occurring at [facility]. Snoring - Sleep apnea symptoms with difficulty [...] to assure normal liver response to medications. CONTINUE LASIX NE EDED FOR SWELLING CHECK [...] providers and pt has been seen at [facility] and that surgeon felt like Kat would [...] change in blood pressure readings at home. Come in Wednesday to [facility] ve PT [...]
--- OUTSIDE RECORDS SUMMARY | 2020-01-16 22:36 | XMS REPORT | CCD ---
Author Author Kat Almanza Organization Sarai Almanza MD, [facility] Address [address] [place] [address] Phone Care Team Providers Care Formulation Technician Name Role Phone PP Unavailable CCM Unavailable Summary Purpose Interface Exchange Insurance Providers Payer name Policy type / Coverage type Covered libertarian ID Effective Begin Date Effective End Date WPS Medicare Part B Medicare Part B [id number] 2017 Unknown [employer] Medicare Part B [id number] 2017 Unknown Family history Father Diagnosis Age At Onset Hyperlipidemia Unknown Heart Attack Unknown Mother Diagnosis Age At Onset Arthritis Unknown Social History Social History Element Codes Description Effective Dates Marital status Unknown M arried Nathan 09/30/2016 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 Number of children Unknown 3 01/22/[address]: 195730675 Never smoker 01/22/[address]: 081440370 Never drinks alcohol 01/22/2015 Allergies, Adverse Reactions, Alerts Substance Reaction Codes Entered Date Inactivated Date Status * NO KNOWN DRUG ORIN RGIES Unknown 01/22/2015 No Inactive Date Active Past Medical History Illness Codes Condition Status Onset Date Resolved Date Mixed hyperlipidemia ICD-9: 272.4 ICD-10: E78.2 Active 06/09/2015 Unknown Hypothyroidism, unsp ecified ICD-9: 244.9 ICD-10: E03.9 Active 05/27/2017 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 ICD-10: [...] 780.79 ICD-10: R53.83 Active 08/20/2016 Unknown Other shelter (cur rent) drug therapy ICD-9: V58.69 ICD-10: [...] ecified ICD-9: 244.9 ICD-10: E03.9 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 ICD-10: [...] ICD-9: 780.79 ICD-10: R53.83 08/20/2016 Active Other shelter (cur rent) drug therapy ICD-9: V58.69 ICD-10: [...] Date Stop Date Sta tus Fill Instructions omeprazole 20 mg cap sean,delayed release RxNorm: 038856 TAKE ONE CAPSULE BY M OUTH TWICE A DAY 02/03/2019 07/26/2020 Active sodium bicarbonate 6 50 mg tablet RxNorm: 936835 TAKE TWO TABLETS BY M OUTH TWICE A DAY 02/03/2019 07/02/2019 Ac tive potassium chloride E R 20 mEq tablet,extended release RxNorm: 355274 TAKE ONE TABLET BY MOUTH DAILY 01/19/2019 04/18/2019 Active Carafate 1 gram tablet RxNorm: 971815 TAKE ONE TABLET BY MOUTH BEFORE MEALS AN D AT BEDTIME 12/30/2018 02/19/2019 Active Carafate 1 gram tablet RxNorm: 290776 TAKE ONE TABLET BY MOUTH BEFORE MEALS AN D AT BEDTIME 12/12/2018 12/29/2018 Inactive mupirocin 2 % topica l ointment RxNorm: 481970 1 Application TOP TID 12/08/2018 12/17/2018 Inactive mupirocin 2 % topica l ointment RxNorm: 768167 1 Application TOP TID 12/08/2018 12/07/2018 Inactive allopurinol 300 mg t ablet RxNorm: 208171 TAKE ONE TABLET BY MO UTH DAILY 11/22/2018 03/21/2019 Ac tive clonazepam 0.5 mg ta blet RxNorm: 048528 1 Tablet(s) PO BID 11/16/2018 04/14/2019 Active Carafate 1 gram tablet RxNorm: 972590 TAKE ONE TABLET BY MOUTH BEFORE MEALS AN D AT BEDTIME 11/15/2018 12/10/2018 Inactive atenolol 100 mg tablet RxNorm: 172381 TAKE ONE TABLET BY MOUTH DAILY 10/24/2018 05/21/2019 Ac tive potassium chloride E R 20 mEq tablet,extended release RxNorm: 984505 2 Tablet(s) PO daily 10/18/2018 02/14/2019 Active potassium chloride E R 20 mEq tablet,extended release RxNorm: 789908 1 Tablet(s) PO daily 10/03/2018 10/17/2018 Inactive Carafate 1 gram tablet RxNorm: 153051 TAKE ONE TABLET BY MOUTH BEFORE MEALS AN D AT BEDTIME 09/26/2018 11/14/2018 Inactive Plavix 75 mg tablet RxNorm: 998268 TAKE ONE TABLET BY MOUTH DAILY 09/02/2018 02/28/2019 Ac tive prednisone 10 mg tablet RxNorm: 359141 Tablet(s) PO 09/02/2018 No Stop Date Active 60,60,50,50,40,40,30,30,20,20,10,10 Synthroid 125 mcg ta blet RxNorm: 186188 1 Tablet(s) PO daily 09/02/2018 08/27/2019 Active potassium chloride E R 20 mEq tablet,extended release RxNorm: 907533 1 Tablet(s) PO daily 09/02/2018 09/01/2018 Inactive potassium chloride E R 20 mEq tablet,extended release RxNorm: 516726 1 Tablet(s) PO daily 09/02/2018 10/02/2018 Inactive Synthroid 125 mcg ta blet RxNorm: 268738 1 Tablet(s) PO daily 09/02/2018 09/01/2018 Inactive Keflex 500 mg capsule RxNorm: 947040 1 Capsule(s) PO TID 09/02/2018 09/08/2018 Inactive Kenalog 40 mg/mL maxine pension for injection RxNorm: 9419298 Milliliter(s) Inj 09/02/2018 09/02/2018 In active Lipitor 40 mg tablet RxNorm: 387796 TAKE ONE TABLET BY MOUTH DAILY 07/29/2018 07/23/2019 Ac tive Coumadin 1 mg tablet RxNorm: 813985 TAKE ONE TABLET BY MOUTH DAILY 07/29/2018 10/26/2018 In active Carafate 1 gram tablet RxNorm: 030177 TAKE ONE TABLET BY MOUTH BEFORE MEALS AN D AT BEDTIME 07/28/2018 09/17/2018 Inactive Coumadin 4 mg tablet RxNorm: 958137 2 Tablet(s) daily 07/11/2018 02/05/2019 Active Generi c For:COUMADIN 4MG 07/22/2017 8:58:26 AM Coumadin 5 mg tablet RxNorm: 222905 Tablet(s) TAKE 1 TABLET BY MOUTH DIRE CTED 07/08/2018 01/03/2019 Inactive Generic For:COUMADIN 5MG TAB 03/21/2018 9:13:00 AM Coumadin 4 mg tablet RxNorm: 795474 Tablet(s) TAKE 1 TABLET BY MOUTH THREE T IMES PER WEEK (WEDNESDAY, WEDNESDAY AND WEDNESDAY) 07/08/2018 07/10/2018 Inactive Gene andre For:COUMADIN 4MG 07/22/2017 8:58:26 AM Coumadin 1 mg tablet RxNorm: 791875 1 Tablet(s) PO daily 07/08/2018 08/06/2018 Inactive venlafaxine ER 75 mg capsule,extended release 24 hr RxNorm: 748065 Capsule(s) TAKE 1 CAPSULE BY MOUTH ONCE DAILY 06/23/2018 06/17/2019 Active Generic For:*EFFEXOR XR 75MG 06/19/2017 12:23:45 PM sodium bicarbonate 6 50 mg tablet RxNorm: 980400 Tablet(s) TAKE 2 TABL ETS BY MOUTH TWICE DAILY 06/23/2018 12/19/2018 Inactive 12/20/2017 9:10:59 AM Coumadin 1 mg tablet RxNorm: 995313 1 Tablet(s) PO daily 06/17/2018 07/07/2018 Inactive Coumadin 1 mg tablet RxNorm: 139102 1 Tablet(s) PO daily 06/17/2018 06/16/2018 Inactive clonazepam 0.5 mg ta blet RxNorm: 786762 1 Tablet(s) PO BID 06/08/2018 11/03/2018 Inactive spironolactone 25 mg tablet RxNorm: 822555 TAKE 1 TABLET BY MOUT H EVERY DAY 05/18/2018 05/12/2019 Ac tive Generic For:*ALDACTONE 25MG 05/18/2018 8:57:50 AM Carafate 1 gram tablet RxNorm: 799381 TAKE ONE TABLET BY MOUTH BEFORE MEALS AN D AT BEDTIME 05/18/2018 07/12/2018 Inactive Generic For:CARAFATE 1GM 1 07/18/2017 8:38:28 AM Synthroid 137 mcg ta blet RxNorm: 357133 TAKE 1 TABLET BY MOUT H ONCE DAILY 05/18/2018 08/30/2018 In active Generic For:SYNTHROID 137MCG TAB 2017 8:57:54 AM allopurinol 300 mg t ablet RxNorm: 249200 TAKE 1 TABLET BY MOUT H ONCE DAILY. 04/18/2018 10/14/2018 In active Generic For:ZYLOPRIM 300 MG TABLET 03/22 9:13:47 AM Lasix 20 mg tablet RxNorm: 336297 TAKE ONE TABLET BY MOUTH DAILY 04/18/2018 08/15/2018 In active Generic For:LASIX 20MG 04/18/2018 9:13: 50 AM Carafate 1 gram tablet RxNorm: 803588 TAKE ONE TABLET BY MOUTH BEFORE MEALS AN D AT BEDTIME 04/18/2018 05/17/2018 Inactive Generic For:CARAFATE 1GM 1 9:32:51 AM Coumadin 5 mg tablet RxNorm: 132304 TAKE 1 TABLET BY MOUTH DIRECTED 03/21/2018 07/07/2018 In active Generic For:COUMADIN 5MG TAB 03/21/2018 9:13:00 AM Carafate 1 gram tablet RxNorm: 933057 TAKE ONE TABLET BY MOUTH BEFORE MEALS AN D AT BEDTIME 03/21/2018 04/17/2018 Inactive Generic For:CARAFATE 1GM 1 9:14:24 AM Carafate 1 gram tablet RxNorm: 204864 1 Tablet(s) PO AC & HS 02/17/2018 03/20/2018 Inactive atenolol 100 mg tablet RxNorm: 420141 1 Tablet(s) PO daily 02/04/2018 09/01/2018 Inactive atenolol 50 mg tablet RxNorm: 120495 1 Tablet(s) PO daily 02/03/2018 02/03/2018 Inactive omeprazole 20 mg cap sean,delayed release RxNorm: 621544 1 Capsule(s) BID 01/21/2018 01/15/2019 In active Generic For:PRILOSEC 20MG 07/22/2017 8:5 8:20 AM Carafate 1 gram tablet RxNorm: 053848 1 Tablet(s) PO AC & HS 01/21/2018 02/16/2018 Inactive Carafate 1 gram tablet RxNorm: 769188 1 Tablet(s) PO AC & HS 01/18/2018 01/20/2018 Inactive Carafate 1 gram tablet RxNorm: 824416 1 Tablet(s) PO AC & HS 01/18/2018 02/27/2018 Inactive Carafate 1 gram tablet RxNorm: 974584 1 Tablet(s) PO AC & HS TAKE ONE TABLET B Y MOUTH TWICE DAILY 01/18/2018 05/17/2018 Inactive Generic For:CARAFATE 1GM 0 12/20/2017 9:10:56 AM omeprazole 20 mg cap sean,delayed release RxNorm: 716642 Capsule(s) TAKE 1 CAP SEAN BY MOUTH EVERY DAY 01/17/2018 01/20/2018 Inactive Generic For:PRILOSEC 20MG 0 07/22/2017 8:58:20 AM omeprazole 20 mg cap sean,delayed release RxNorm: 830852 Capsule(s) TAKE 1 CAP SEAN BY MOUTH EVERY DAY 01/14/2018 01/16/2018 Inactive Generic For:PRILOSEC 20MG 07/22/2017 8:58:20 AM clonazepam 0.5 mg ta blet RxNorm: 245812 1 Tablet(s) PO BID 01/07/2018 06/05/2018 Inactive Plavix 75 mg tablet RxNorm: 875343 1 Tablet(s) PO daily 01/07/2018 07/05/2018 Inactive Carafate 1 gram tablet RxNorm: 462053 1 Tablet(s) PO AC & HS 01/04/2018 01/17/2018 Inactive Lasix 20 mg tablet RxNorm: 040861 TAKE ONE TABLET BY MOUTH DAILY 12/20/2017 04/17/2018 In active Generic For:LASIX 20MG 12/20/2017 9:11: 03 AM sodium bicarbonate 6 50 mg tablet RxNorm: 408595 TAKE 2 TABLETS BY JAVON TH TWICE DAILY 12/20/2017 06/17/2018 In active 12/20/2017 9:10:59 AM Carafate 1 gram tablet RxNorm: 898359 TAKE ONE TABLET BY MOUTH TWICE DAILY 12/20/2017 01/17/2018 In active Generic For:CARAFATE 1GM 12/20/2017 9:1 0:56 AM Synthroid 137 mcg ta blet RxNorm: 706937 TAKE 1 TABLET BY MOUT H ONCE DAILY 11/19/2017 05/17/2018 In active Generic For:SYNTHROID 137MCG TAB 2017 8:58:04 AM Detrol LA 4 mg capsu le,extended release RxNorm: 562641 TAKE 1 CAPSULE BY JAVON TH ONCE DAILY 10/20/2017 04/13/2018 Inactive Generic For:DETROL LA 4MG C AP 10/20/2017 9:01:56 AM allopurinol 300 mg t ablet RxNorm: 919803 TAKE 1 TABLET BY MOUT H ONCE DAILY. 10/20/2017 04/17/2018 In active Generic For:ZYLOPRIM 300 MG TABLET 07/2017 9:01:59 AM Coumadin 5 mg tablet RxNorm: 405403 1 Tablet(s) PO UD 10/01/2017 03/20/2018 Inactive cyclobenzaprine 5 mg tablet RxNorm: 544722 1 Tablet(s) PO TID as needed myscle spasm 09/23/2017 10/12/2017 Inactive Lipitor 40 mg tablet RxNorm: 454162 TAKE 1 TABLET BY MOUTH ONCE DAILY 09/20/2017 07/28/2018 In active Generic For:LIPITOR 40MG 09/20/2017 8:5 6:04 AM atenolol 100 mg tablet RxNorm: 243570 1 Tablet(s) PO daily 08/30/2017 02/03/2018 Inactive atenolol 50 mg tablet RxNorm: 473946 1 Tablet(s) PO daily 08/30/2017 08/30/2017 Inactive Lovenox 30 mg/0.3 mL subcutaneous syringe RxNorm: 796080 0.3 Milliliter(s) SQ Q12H 08/24/2017 09/06/2017 In active Lasix 20 mg tablet RxNorm: 349692 TAKE ONE TABLET BY MOUTH DAILY 08/23/2017 12/19/2017 In active Generic For:LASIX 20MG 08/21/2017 9:04: 27 AM Synthroid 137 mcg ta blet RxNorm: 590084 TAKE 1 TABLET BY MOUT H ONCE DAILY 08/23/2017 11/18/2017 In active Generic For:SYNTHROID 137MCG TAB 2017 9:04:30 AM Lovenox 30 mg/0.3 mL subcutaneous syringe RxNorm: 448890 0.3 Milliliter(s) SQ Q12H 08/10/2017 08/23/2017 In active clonazepam 0.5 mg ta blet RxNorm: 776166 1 Tablet(s) PO BID 08/04/2017 12/30/2017 Inactive omeprazole 20 mg cap sean,delayed release RxNorm: 528667 TAKE 1 CAPSULE BY JAVON TH EVERY DAY 07/22/2017 01/13/2018 Inactive Generic For:PRILOSEC 20MG 07/22/2017 8: 58:20 AM Coumadin 4 mg tablet RxNorm: 030755 TAKE 1 TABLET BY MOUTH THREE TIMES PER [place] (WEDNESDAY, WEDNESDAY AND WEDNESDAY) 07/22/2017 10/03/2018 Inactive Generic For:COUMADIN 4MG 07/22/2017 8:58:26 AM Coumadin 4 mg tablet RxNorm: 223821 TAKE 1 TABLET BY MOUTH THREE TIMES PER [place] (WEDNESDAY, WEDNESDAY AND WEDNESDAY) 07/22/2017 02/16/2018 Inactive Generic For:COUMADIN 4MG 07/22/2017 8:58:26 AM sodium bicarbonate 6 50 mg tablet RxNorm: 167169 TAKE 2 TABLETS BY JAVON TH TWICE DAILY 06/22/2017 12/18/2017 In active 06/19/2017 12:23:30 PM venlafaxine ER 75 mg capsule,extended release 24 hr RxNorm: 634634 TAKE 1 CAPSULE BY MOUTH ONCE DAILY 06/22/2017 06/16/2018 Inactive Generic For:*EFFEXOR XR 75M G 06/19/2017 12:23:45 PM Coumadin 5 mg tablet RxNorm: 249953 1 Tablet(s) PO UD 06/01/2017 09/30/2017 Inactive Keflex 500 mg capsule RxNorm: 136650 1 Capsule(s) PO TID 05/27/2017 06/02/2017 Inactive Synthroid 137 mcg ta blet RxNorm: 291661 TAKE 1 TABLET BY MOUT H ONCE DAILY 05/24/2017 08/21/2017 In active Generic For:SYNTHROID 137MCG TAB 2016 8:55:59 AM Carafate 1 gram tablet RxNorm: 457370 TAKE ONE TABLET BY MOUTH TWICE DAILY 05/24/2017 12/19/2017 In active Generic For:CARAFATE 1GM 05/24/2017 8:5 5:54 AM spironolactone 25 mg tablet RxNorm: 175309 1 Tablet(s) PO daily 05/24/2017 05/17/2018 Inactive Detrol LA 4 mg capsu le,extended release RxNorm: 439996 1 Capsule(s) PO daily TAKE 1 CAPSULE BY MOUTH ONCE DAILY 05/10/2017 10/19/2017 Inactive Generic For:DETROL LA 4MG CAP 02/19/2017 2:36:00 PM Lasix 20 mg tablet RxNorm: 179574 TAKE ONE TABLET BY MOUTH DAILY 04/23/2017 08/20/2017 In active Generic For:LASIX 20MG 04/23/2017 9:04: 01 AM Coumadin 4 mg tablet RxNorm: 689442 TAKE 1 TABLET BY MOUTH THREE TIMES PER [place] (WEDNESDAY, WEDNESDAY AND WEDNESDAY) 04/23/2017 07/21/2017 Inactive Generic For:COUMADIN 4MG 04/23/2017 9:04:05 AM allopurinol 300 mg t ablet RxNorm: 275463 TAKE 1 TABLET BY MOUT H ONCE DAILY. 04/23/2017 10/19/2017 In active Generic For:ZYLOPRIM 300 MG TABLET 08/2016 9:03:57 AM potassium chloride 2 0 mEq/15 mL oral liquid RxNorm: 683837 Milliliter(s) 30 Milliliter(s) (40mEq) PO daily 03/24/2017 07/21/2017 Inactive Lovenox 30 mg/0.3 mL subcutaneous syringe RxNorm: 548943 0.3 Milliliter(s) SQ Q12H 03/22/2017 03/26/2017 In active Lovenox 30 mg/0.3 mL subcutaneous syringe RxNorm: 528032 0.3 Milliliter(s) SQ Q12H 03/19/2017 03/20/2017 In active Lovenox 30 mg/0.3 mL subcutaneous syringe RxNorm: 701636 0.3 Milliliter(s) SQ Q12H 03/16/2017 03/18/2017 In active clonazepam 0.5 mg ta blet RxNorm: 094381 1 Tablet(s) PO BID 03/02/2017 10/03/2018 Inactive Lovenox 30 mg/0.3 mL subcutaneous syringe RxNorm: 979086 1 injection SQ BID do NOT take the night time dose the day before surgery, or the morning dose the day of surgery 03/01/2017 03/07/2017 Inactive Lovenox 30 mg/0.3 mL subcutaneous syringe RxNorm: 329970 1 injection SQ BID 03/01/2017 02/28/2017 In active Detrol LA 4 mg capsu le,extended release RxNorm: 152729 TAKE 1 CAPSULE BY JAVON TH ONCE DAILY 02/19/2017 05/09/2017 Inactive Generic For:DETROL LA 4MG C AP 02/19/2017 2:36:00 PM hydrocodone 5 mg-humberto taminophen 325 mg tablet RxNorm: 813332 1-2 Tablet(s) PO Q6 P RN 02/04/2017 No Stop Date Active Zetia 10 mg tablet RxNorm: 636498 TAKE 1 TABLET BY MOUTH DAILY 01/25/2017 04/13/2018 Inactive 01/23/2017 9:03:48 AM omeprazole 20 mg cap sean,delayed release RxNorm: 477537 TAKE 1 CAPSULE BY JAVON TH EVERY DAY 01/25/2017 07/21/2017 Inactive Generic For:PRILOSEC 20MG 01/23/2017 9: 03:45 AM Coumadin 4 mg tablet RxNorm: 366668 TAKE 1 TABLET BY MOUTH THREE TIMES PER [place] (WEDNESDAY, WEDNESDAY AND WEDNESDAY) 01/25/2017 04/22/2017 Inactive Generic For:COUMADIN 4MG 01/23/2017 9:03:51 AM sodium bicarbonate 6 50 mg tablet RxNorm: 492622 TAKE 2 TABLETS BY JAVON TH TWICE DAILY 12/24/2016 06/21/2017 In active 12/24/2016 9:09:27 AM Lasix 20 mg tablet RxNorm: 071927 1 Tablet(s) PO daily 12/24/2016 04/22/2017 Inactive Synthroid 137 mcg ta blet RxNorm: 630625 TAKE 1 TABLET BY MOUT H ONCE DAILY 11/24/2016 05/22/2017 In active Generic For:SYNTHROID 137MCG TAB 2016 9:04:37 AM Coumadin 4 mg tablet RxNorm: 395714 TAKE 1 TABLET BY MOUTH THREE TIMES PER [place] (WEDNESDAY, WEDNESDAY AND WEDNESDAY) 11/24/2016 01/22/2017 Inactive Generic For:COUMADIN 4MG 11/24/2016 9:04:41 AM hydrocodone 5 mg-humberto taminophen 325 mg tablet RxNorm: 802969 1-2 Tablet(s) PO Q6 P RN 11/17/2016 02/03/2017 In active Carafate 1 gram tablet RxNorm: 276144 TAKE ONE TABLET BY MOUTH TWICE DAILY 10/27/2016 05/23/2017 In active Generic For:CARAFATE 1GM 10/26/2016 8:3 9:42 AM allopurinol 300 mg t ablet RxNorm: 818199 Tablet(s) TAKE 1 TABL ET BY MOUTH ONCE DAILY. 10/26/2016 04/22/2017 Inactive Lipitor 40 mg tablet RxNorm: 878478 1 Tablet(s) PO daily 09/25/2016 09/19/2017 Inactive Coumadin 4 mg tablet RxNorm: 798740 TAKE 1 TABLET BY MOUTH THREE TIMES PER [place] (WEDNESDAY, WEDNESDAY AND WEDNESDAY) 09/25/2016 11/23/2016 Inactive Generic For:COUMADIN 4MG 09/25/2016 8:55:58 AM Zetia 10 mg tablet RxNorm: 622378 1 Tablet(s) PO daily 09/25/2016 01/22/2017 Inactive gave 1 month of samples clonazepam 0.5 mg ta blet RxNorm: 517880 1 Tablet(s) PO BID 09/21/2016 10/03/2018 Inactive Lasix 20 mg tablet RxNorm: 091988 1 Tablet(s) PO daily 09/15/2016 12/23/2016 Inactive potassium chloride 2 0 mEq/15 mL oral liquid RxNorm: 678983 Milliliter(s) 30 Milliliter(s) (40mEq) PO daily 09/15/2016 01/12/2017 Inactive Lasix 20 mg tablet RxNorm: 057214 2 Tablet(s) PO daily 09/10/2016 09/12/2016 Inactive Lasix 20 mg tablet RxNorm: 1 Tablet(s) PO daily 08/28/2016 08/30/2016 Inactive Lasix 20 mg tablet RxNorm: 1 Tablet(s) PO daily 08/20/2016 08/22/2016 Inactive Detrol LA 4 mg capsu le,extended release RxNorm: 959716 TAKE 1 CAPSULE BY JAVON TH ONCE DAILY 07/27/2016 02/18/2017 Inactive Generic For:DETROL LA 4MG C AP 07/27/2016 9:08:27 AM Coumadin 4 mg tablet RxNorm: 477499 1 Tablet(s) PO 3 x week tue and sun 07/27/2016 09/24/2016 In active omeprazole 20 mg cap sean,delayed release RxNorm: 684294 Capsule(s) PO TAKE 1 CAPSULE BY MOUTH ONCE DAILY 07/27/2016 01/22/2017 Inactive venlafaxine ER 75 mg capsule,extended release 24 hr RxNorm: 160687 1 Capsule(s) PO daily 06/29/2016 06/21/2017 Inactive sodium bicarbonate 6 50 mg tablet RxNorm: 582424 TAKE 2 TABLETS BY [facility] TWICE DAILY 06/29/2016 12/23/2016 In active 06/27/2016 9:05:39 AM Coumadin 4 mg tablet RxNorm: 321201 1 Tablet(s) PO 3 x week [facility] and sun 06/09/2016 06/08/2016 In active Coumadin 4 mg tablet RxNorm: 504648 1 Tablet(s) PO 3 x week wed [facility] and sun 06/09/2016 07/26/2016 In active Zetia 10 mg tablet RxNorm: 384583 1 Tablet(s) PO daily 06/09/2016 06/08/2016 Inactive gave 1 month of samples Zetia 10 mg tablet RxNorm: 242814 1 Tablet(s) PO daily 06/09/2016 09/24/2016 Inactive gave 1 month of samples Effexor 75 mg tablet RxNorm: 138913 1 Tablet(s) PO daily 06/08/2016 06/28/2016 Inactive spironolactone 25 mg tablet RxNorm: 217083 1 Tablet(s) PO daily 06/08/2016 05/23/2017 Inactive Synthroid 137 mcg ta blet RxNorm: 972594 1 Tablet(s) PO daily 05/07/2016 11/02/2016 Inactive allopurinol 300 mg t ablet RxNorm: 161715 Tablet(s) TAKE 1 TABL ET BY MOUTH ONCE DAILY. 04/28/2016 10/24/2016 Inactive clonazepam 0.5 mg ta blet RxNorm: 107115 1 Tablet(s) PO BID 04/20/2016 10/03/2018 Inactive Flonase Allergy Reli ef 50 mcg/actuation nasal spray,suspension RxNorm: 2819941 1 [place] NASAL BID 04/02/2016 No Stop Date Active Zithromax Z-Thomas 250 mg tablet RxNorm: 500277 Tablet(s) PO 04/02/2016 08/27/2016 Inactive cetirizine 10 mg tablet RxNorm: 6992034 1 Tablet(s) PO daily 04/02/2016 05/01/2016 Inactive Carafate 1 gram tablet RxNorm: 113385 Tablet(s) TAKE 1 TABLET TWICE A DAY FOR 30 DAYS 03/30/2016 10/25/2016 Inactive Generic For:CARAFATE 1GM 02/08/2015 12:3 6:39 PM Plavix 75 mg tablet RxNorm: 528157 1 Tablet(s) PO daily 03/11/2016 09/06/2016 Inactive sodium bicarbonate 6 50 mg tablet RxNorm: 972992 Tablet(s) 2 Tablet(s) PO BID 02/28/2016 06/26/2016 In active omeprazole 20 mg cap sean,delayed release RxNorm: 601635 Capsule(s) PO TAKE 1 CAPSULE BY MOUTH ONCE DAILY 01/31/2016 07/26/2016 Inactive Fish Oil 1,000 mg ca psule RxNorm: 1 Capsule(s) PO BID 01/14/2016 No Stop Date Active Synthroid 137 mcg ta blet RxNorm: 636300 1 Tablet(s) PO daily 01/14/2016 05/06/2016 Inactive Detrol LA 4 mg capsu le,extended release RxNorm: 395835 TAKE 1 CAPSULE BY JAVON TH ONCE DAILY 12/30/2015 07/26/2016 Inactive Generic For:DETROL LA 4MG C AP 12/30/2015 9:11:01 AM potassium chloride 2 0 mEq/15 mL oral liquid RxNorm: 895889 Milliliter(s) 30 Milliliter(s) (40mEq) PO daily 12/02/2015 03/30/2016 Inactive sodium bicarbonate 6 50 mg tablet RxNorm: 610355 Tablet(s) 2 Tablet(s) PO BID 10/31/2015 02/27/2016 In active Lipitor 40 mg tablet RxNorm: 030558 1 Tablet(s) PO daily 10/09/2015 09/24/2016 Inactive sodium bicarbonate 6 50 mg tablet RxNorm: 829320 2 Tablet(s) PO BID 10/01/2015 10/30/2015 Inactive allopurinol 300 mg t ablet RxNorm: 426104 TAKE 1 TABLET BY MOUT H ONCE DAILY. 10/01/2015 04/27/2016 In active Generic For:ZYLOPRIM 300 MG TABLET 09/19 9:21:15 AM clonazepam 0.5 mg ta blet RxNorm: 979306 1 Tablet(s) PO BID 09/30/2015 04/19/2016 Inactive Coumadin 5 mg tablet RxNorm: 008024 1 Tablet(s) PO daily 09/27/2015 05/31/2017 Inactive Generic For:COUMADIN 5MG TAB N O T I C E PRESCRIPTION PREVIOUSLY AUTHORIZED BY DOCTOR:BOBBY ZULETA Synthroid 125 mcg ta blet RxNorm: 210056 1 Tablet(s) PO daily 09/27/2015 09/26/2015 Inactive Synthroid 125 mcg ta blet RxNorm: 622647 1 Tablet(s) PO daily 09/27/2015 01/13/2016 Inactive Carafate 1 gram tablet RxNorm: 067376 Tablet(s) TAKE 1 TABLET TWICE A DAY FOR 30 DAYS 09/02/2015 03/29/2016 Inactive Generic For:CARAFATE 1GM 02/08/2015 12:3 6:39 PM sodium bicarbonate 6 50 mg tablet RxNorm: 528197 2 Tablet(s) PO BID 09/02/2015 09/30/2015 Inactive Prilosec 20 mg capsu le,delayed release RxNorm: 310361 TAKE 1 CAPSULE BY JAVON ONCE DAILY 08/02/2015 01/28/2016 Inactive Generic For:PRILOSEC 20MG 08/02/2015 10:03:09 AM N O T I C E PRESCRIPTION PREVIOUSLY AUTHORIZED BY DOCTOR:BOBBY ZULETA Zyrtec 10 mg capsule RxNorm: 4716631 1 Capsule(s) PO daily 07/15/2015 08/13/2015 Inactive Keflex 500 mg capsule RxNorm: 239113 1 Capsule(s) PO TID 07/15/2015 07/21/2015 Inactive cetirizine 10 mg cap sean RxNorm: 0390358 1 Capsule(s) PO daily 07/15/2015 08/13/2015 Inactive hydrocodone 5 mg-humberto taminophen 325 mg tablet RxNorm: 470923 1-2 Tablet(s) PO Q6 P RN 06/10/2015 11/16/2016 In active sodium bicarbonate 6 50 mg tablet RxNorm: 298425 2 Tablet(s) PO BID 06/03/2015 08/31/2015 Inactive Detrol LA 4 mg capsu le,extended release RxNorm: 468945 TAKE 1 CAPSULE BY JAVON TH ONCE DAILY 06/03/2015 12/29/2015 Inactive Generic For:DETROL LA 4MG C AP N O T I C E PRESCRIPTION PREVIOUSLY AUTHORIZED BY DOCTOR:BOBBY ZULETA atenolol 50 mg tablet RxNorm: 714068 1 Tablet(s) PO daily TAKE 1 TABLET BY MO ORH DAILY 05/07/2015 08/23/2017 Inactive Generic For:TENORMIN 50MG 05/04/2015 9:07:22 AM spironolactone 25 mg tablet RxNorm: 166721 1 Tablet(s) PO daily 05/06/2015 06/07/2016 Inactive venlafaxine ER 75 mg capsule,extended release 24 hr RxNorm: 159642 1 Capsule(s) PO daily 05/04/2015 06/28/2016 Inactive atenolol 50 mg tablet RxNorm: 995051 TAKE 1 TABLET BY MOUTH DAILY 05/04/2015 05/06/2015 Inactive Generic For:TENORMIN 50MG 05/04/2015 9: 07:22 AM Synthroid 150 mcg ta blet RxNorm: 822882 TAKE 1 TABLET BY MOUT H ONCE DAILY. 04/05/2015 09/26/2015 In active Generic For:SYNTHROID 150MCG TAB 2014 4:45:40 PM N O T I C E PRESCRIPTION PREVIOUSLY AUTHORIZED BY DOCTOR:BOBBY ZULETA Effexor 75 mg tablet RxNorm: 229905 1 Tablet(s) PO daily 04/05/2015 07/03/2015 Inactive Coumadin 5 mg tablet RxNorm: 282653 TAKE 1 AND 1/2 TABLETS BY MOUTH ONCE MYRANDA LY 04/04/2015 09/26/2015 In active Generic For:COUMADIN 5MG TAB N O T I C E PRESCRIPTION PREVIOUSLY AUTHORIZED BY DOCTOR:BOBBY ZULETA clonazepam 0.5 mg ta blet RxNorm: 497431 1 Tablet(s) PO BID 03/13/2015 11/05/2015 Inactive sodium bicarbonate 6 50 mg tablet RxNorm: 864140 2 Tablet(s) PO BID 03/08/2015 06/02/2015 Inactive allopurinol 300 mg t ablet RxNorm: 280017 TAKE 1 TABLET BY MOUT H ONCE DAILY. 03/05/2015 09/30/2015 In active N O T I C E PRESCRIPTION PREVIOUSLY A UTHORIZED BY DOCTOR:BOBBY ZULETA Plavix 75 mg tablet RxNorm: 736951 1 Tablet(s) PO daily 02/12/2015 09/09/2015 Inactive clonazepam 0.5 mg ta blet RxNorm: 325114 1 Tablet(s) PO BID 02/11/2015 03/11/2015 Inactive Carafate 1 gram tablet RxNorm: 972135 TAKE 1 TABLET TWICE A DAY FOR 30 DAYS 02/08/2015 02/07/2015 In active Generic For:CARAFATE 1GM 02/08/2015 12:3 6:39 PM Carafate 1 gram tablet RxNorm: 660262 Tablet(s) TAKE 1 TABLET TWICE A DAY FOR 30 DAYS 02/08/2015 09/01/2015 Inactive Generic For:CARAFATE 1GM 02/08/2015 12:3 6:39 PM potassium chloride 2 0 mEq/15 mL oral liquid RxNorm: 225806 30 Milliliter(s) (40m Eq) PO daily 02/05/2015 12/01/2015 Inactive atenolol 50 mg tablet RxNorm: 799092 1 Tablet(s) PO daily 02/04/2015 05/03/2015 Inactive [SAVINGS FOR NON-COVERED DRUGS -- BIN:[id number], PCN: [id number], Group: [id number], ID# [id number], Questions: . THIS IS NOT INSURANCE.] potassium chloride 2 0 mEq/15 mL oral liquid RxNorm: 811783 30 Milliliter(s) (40m Eq) PO daily 01/08/2015 02/04/2015 Inactive potassium chloride 2 0 mEq/15 mL oral liquid RxNorm: 943885 30 Milliliter(s) (40m Eq) PO daily 12/07/2014 01/07/2015 Inactive atenolol 50 mg tablet RxNorm: 649061 1 Tablet(s) PO daily 11/09/2014 11/08/2014 Inactive atenolol 50 mg tablet RxNorm: 301941 1 Tablet(s) PO daily 11/09/2014 02/03/2015 Inactive [SAVINGS FOR NON-COVERED DRUGS -- BIN:[id number], PCN: [id number], Group: [id number], ID# [id number], Questions: . THIS IS NOT INSURANCE.] Voltaren 1 % topical gel RxNorm: 664475 TOP No St art Date Active verapamil ER (HS) 24 0 mg tablet,extended release 24 hr RxNorm: 653933 1 Tablet(s) PO daily No Start Date Active aspirin 81 mg tablet RxNorm: 681428 1 Tablet(s) PO daily No Start Date Active Zofran 4 mg tablet RxNorm: 000430 1 Tablet(s) PO PRN No Start Date Active B12 1000 mcg RxNorm: 1 Tablet(s) PO daily No Start Date Active magnesium oxide 400 mg capsule RxNorm: 482148 2 Capsule(s) PO BID No Start Date Active Synthroid 150 mcg ta blet RxNorm: 100905 1 Tablet(s) PO daily No Start Date 04/04/2015 Inactive Coumadin 5 mg tablet RxNorm: 714039 1 Tablet(s) PO daily No Start Date 04/03/2015 Inactive cranberry 1,000 mg c apsule RxNorm: 635803 1 Capsule(s) PO daily No Start Date 04/13/2018 Inactive allopurinol 300 mg t ablet RxNorm: 566435 1 Tablet(s) PO daily No Start Date 03/04/2015 Inactive Prilosec 20 mg capsu le,delayed release RxNorm: 599190 1 Capsule(s) PO PRN No Start Date 08/01/2015 Inactive potassium chloride 2 0 mEq/15 mL oral liquid RxNorm: 392644 30 Milliliter(s) (40m Eq) PO daily No Start Date 12/06/2014 Inactive atenolol 50 mg tablet RxNorm: 477143 1 Tablet(s) PO daily No Start Date 08/29/2017 Inactive Lipitor 40 mg tablet RxNorm: 338723 1 Tablet(s) PO daily No Start Date 09/19/2017 Inactive Effexor 75 mg tablet RxNorm: 012539 1 Tablet(s) PO daily No Start Date 04/04/2015 Inactive Carafate 1 gram tablet RxNorm: 547230 1 Tablet(s) PO BID No Start Date 02/07/2015 Inactive clonazepam 0.5 mg ta blet RxNorm: 419219 1 Tablet(s) PO BID No Start Date 02/10/2015 Inactive Plavix 75 mg tablet RxNorm: 778660 1 Tablet(s) PO daily No Start Date 02/11/2015 Inactive sodium bicarbonate 6 50 mg tablet RxNorm: 760512 2 Tablet(s) PO BID No Start Date 09/01/2015 Inactive Lovenox 30 mg/0.3 mL subcutaneous syringe RxNorm: 450363 0.3 Milliliter(s) SQ Q12H No Start Date 03/15/2017 Inactive Fish Oil 1,000 mg ca psule RxNorm: 1 Capsule(s) PO daily No Start Date 01/13/2016 Inactive Detrol LA 4 mg capsu le,extended release RxNorm: 742402 1 Capsule(s) PO daily No Start Date 06/02/2015 Inactive Medication Administered Medication Codes Instruc tions Start Date Status Kenalog 40 mg/mL suspension for injection RxNorm: 5945987 Milliliter 09/02/2018 No longer Active Immunizations Vaccine Codes Date Status SHINGARIX CVX: 121 03/23 completed Assessments Condition Codes Effectiv e Dates Mixed hyperlipidemia ICD-10: E78.2 ICD-9: 272.4 10/05/2018 Other acute sinusitis ICD-10: J01.80 ICD-9: 461.8 09/02/2018 Other allergic rhinitis ICD-10: J30. 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 ICD-9: [...] fatigue ICD-10: R53.83 ICD-9: 780.79 08/20/2016 Other shelter (current) drug therapy ICD-10: Z79.899 ICD-9: V58.69 [...] Code Item Item Code Result Date Pt Dfs2516 PT 27.4 seconds 01/27/2019 Pt Gyr1523 INR 2.6 01/27/2019 Pt Dza3657 Low Intensity - 1.5-2.0 01/27/2019 Pt Jev8983 Mod intensity - 2.0-3.0 01/27/2019 Pt Bkp8608 Hi intensity - 3.0-4.0 01/27/2019 Pt Wzr5429 PT 21.8 seconds 12/15/2018 Pt Ctw3480 INR 2.0 12/15/2018 Pt Jaq9895 Low Intensity - 1.5-2.0 12/15/2018 Pt Qri6538 Mod intensity - 2.0-3.0 12/15/2018 Pt Fin0978 Hi intensity - 3.0-4.0 12/15/2018 Pt Taa3224 PT 24.4 seconds 12/09/2018 Pt Vkf2214 INR 2.2 12/09/2018 Pt Cat4360 Low Intensity - 1.5-2.0 12/09/2018 Pt Cfl6453 Mod intensity - 2.0-3.0 12/09/2018 Pt Jzx0305 Hi intensity - 3.0-4.0 12/09/2018 Pt Vix7100 PT 35.0 seconds 12/01/2018 Pt Xay4281 INR 3.5 12/01/2018 Pt Xbe8872 Low Intensity - 1.5-2.0 12/01/2018 Pt Dex6375 Mod intensity - 2.0-3.0 12/01/2018 Pt Pgs3685 Hi intensity - 3.0-4.0 12/01/2018 Pt Ywv0250 PT 26.3 seconds 10/13/2018 Pt Wne9190 INR 2.5 10/13/2018 Pt Nvy6890 Low Intensity - 1.5-2.0 10/13/2018 Pt Wgf9041 Mod intensity - 2.0-3.0 10/13/2018 Pt Suh2757 Hi intensity - 3.0-4.0 10/13/2018 Lipid Ord30 CHOL 180 mg/dL 10/07/2018 Lipid Ord30 HDL 74.0 mg/dl 10/07/2018 Lipid Ord30 TRIG 111 mg/dL 10/07/2018 Lipid Ord30 LDL 84 mg/dL 10/07/2018 Lipid Ord30 C/HDL 2.4 Ratio 10/07/2018 Pt Adc3696 PT 38.1 seconds 10/07/2018 Pt Ypr7956 INR 3.9 10/07/2018 Pt Ddx3334 Low Intensity - 1.5-2.0 10/07/2018 Pt Qno4001 Mod intensity - 2.0-3.0 10/07/2018 Pt Xkg4320 Hi intensity - 3.0-4.0 10/07/2018 Tsh Ord6 TSH (3rd IS) 0.43 uIU/mL 09/02/2018 Comp Metabolic Lfh340 NA 136 mEq/L 09/02/2018 Comp Metabolic Ctq731 K 4.1 mEq/L 09/02/2018 Comp Metabolic Ihy575 CL 103 mEq/L 09/02/2018 Comp Metabolic Otv957 CO2 20.0 mEq/L 09/02/2018 Comp Metabolic Lgl350 AN ION GAP 17 09/02/2018 Comp Metabolic Kgp966 GL UCOSE 124 mg/dL 09/02/2018 Comp Metabolic Zgy544 Cr eat 1.0 mg/dL 09/02/2018 Comp Metabolic Rvt427 eG FR 57 ml/min/1.73m2 09/02 Comp Metabolic Evf848 BUN 24 mg/dL 09/02/2018 Comp Metabolic Gom225 B/ C Ratio 23.8 Ratio 09/02/2018 Comp Metabolic Xkc115 CA LCIUM 9.5 mg/dL 09/02/2018 Comp Metabolic Rze269 AL K PHOS 64 U/L 09/02/2018 Comp Metabolic Crk786 T(SGOT) 24 U/L 09/02/2018 Comp Metabolic Cbh387 AL T(SGPT) 23 U/L 09/02/2018 Comp Metabolic Btr491 BI LI T 0.5 mg/dL 09/02/2018 Comp Metabolic Zfm678 AL BUMIN 4.2 g/dL 09/02/2018 Comp Metabolic Nhi086 TP RO 7.4 g/dL 09/02/2018 Comp Metabolic Uqy733 GL OB 3.2 g/dL 09/02/2018 Comp Metabolic Xgu172 A/ G Ratio 1.3 Ratio 09/02/2018 Comp Metabolic Nkz265 Os mo 277 mOsmo 09/02/2018 Pt Urv4665 PT 40.6 seconds 09/02/2018 Pt Wag3773 INR 4.2 09/02/2018 Pt Kfi1914 Low Intensity - 1.5-2.0 09/02/2018 Pt Aqy4440 Mod intensity - 2.0-3.0 09/02/2018 Pt Nkt9740 Hi intensity - 3.0-4.0 09/02/2018 Free T4 Ukq600 FREE T4 1.51 ng/dL 09/02/2018 Magnesium Ord90 Mag 1.8 mg/dL 09/02/2018 Pt Ddy0141 PT 29.2 seconds 08/05/2018 Pt Tlz9946 INR 2.8 08/05/2018 Pt Ixw8465 Low Intensity - 1.5-2.0 08/05/2018 Pt Kut8256 Mod intensity - 2.0-3.0 08/05/2018 Pt Lan1787 Hi intensity - 3.0-4.0 08/05/2018 Pt Nmc1391 PT 30.2 seconds 07/25/2018 Pt Zky2976 INR 2.9 07/25/2018 Pt Jcc4177 Low Intensity - 1.5-2.0 07/25/2018 Pt Sfs9100 Mod intensity - 2.0-3.0 07/25/2018 Pt Xtm1552 Hi intensity - 3.0-4.0 07/25/2018 Pt Tkc6013 PT 25.2 seconds 07/19/2018 Pt Wpg4756 INR 2.3 07/19/2018 Pt Ytp3997 Low Intensity - 1.5-2.0 07/19/2018 Pt Igg3753 Mod intensity - 2.0-3.0 07/19/2018 Pt Bma2543 Hi intensity - 3.0-4.0 07/19/2018 Pt Iqs5468 PT 17.4 seconds 07/15/2018 Pt Uok8910 INR 1.5 07/15/2018 Pt Igx8860 Low Intensity - 1.5-2.0 07/15/2018 Pt Gpb4541 Mod intensity - 2.0-3.0 07/15/2018 Pt Zcy3572 Hi intensity - 3.0-4.0 07/15/2018 Pt Gvg1976 PT 17.8 seconds 07/08/2018 Pt Tuv6016 INR 1.5 07/08/2018 Pt Bcl7744 Low Intensity - 1.5-2.0 07/08/2018 Pt Ivz7505 Mod intensity - 2.0-3.0 07/08/2018 Pt Zyb1850 Hi intensity - 3.0-4.0 07/08/2018 Pt Vdq8028 PT 19.2 seconds 07/01/2018 Pt Hwp3105 INR 1.7 07/01/2018 Pt Enl0469 Low Intensity - 1.5-2.0 07/01/2018 Pt Yqt6001 Mod intensity - 2.0-3.0 07/01/2018 Pt Qyd5171 Hi intensity - 3.0-4.0 07/01/2018 Pt Evp3339 PT 17.4 seconds 06/23/2018 Pt Gty3764 INR 1.5 06/23/2018 Pt Wfh2850 Low Intensity - 1.5-2.0 06/23/2018 Pt Qep4010 Mod intensity - 2.0-3.0 06/23/2018 Pt Zby2491 Hi intensity - 3.0-4.0 06/23/2018 Pt Rjg6215 PT 18.4 seconds 06/17/2018 Pt Hcb0087 INR 1.6 06/17/2018 Pt Oek9793 Low Intensity - 1.5-2.0 06/17/2018 Pt Aef2915 Mod intensity - 2.0-3.0 06/17/2018 Pt Cnm5031 Hi intensity - 3.0-4.0 06/17/2018 Sed Rate [...] 30.4 pg 06/08/2018 Cbc With Differential Ord2 Osborne% 9.4 % 06/08/2018 Cbc With Differential Ord2 [...] 1.20 K/ul 06/08/2018 Cbc With Differential Ord2 [place] ABS# 0.5 K/ul 06/08/2018 Cbc With Differential Ord2 Eos ABS# 0.1 K/ul 06/08/2018 Cbc With Differential Ord2 Baso ABS# 0.1 K/ul 06/08/2018 C-Reactive Protein Qnt Crqnt CRP 0.1 mg/dl 06/08/2018 Pt Ult6048 PT 17.6 seconds 06/08/2018 Pt Nfi0149 INR 1.5 06/08/2018 Pt Prf6808 Low Intensity - 1.5-2.0 06/08/2018 Pt Vui6084 Mod intensity - 2.0-3.0 06/08/2018 Pt Ijd5191 Hi intensity - 3.0-4.0 06/08/2018 Pt Ylb7480 PT 16.8 seconds 05/10/2018 Pt Cnt7968 INR 1.4 05/10/2018 Pt Bai5750 Low Intensity - 1.5-2.0 05/10/2018 Pt Awe0061 Mod intensity - 2.0-3.0 05/10/2018 Pt Cga9718 Hi intensity - 3.0-4.0 05/10/2018 Pt Xas7566 PT 16.7 seconds 05/04/2018 Pt Wgp0655 INR 1.4 05/04/2018 Pt Qxt0160 Low Intensity - 1.5-2.0 05/04/2018 Pt Hab5867 Mod intensity - 2.0-3.0 05/04/2018 Pt Hyn1867 Hi intensity - 3.0-4.0 05/04/2018 Free T4 Kzd369 FREE T4 1.09 ng/dL 04/14/2018 Tsh Ord6 TSH (3rd IS) 2.36 uIU/mL 04/14/2018 Pt Yot5040 PT 20.3 seconds 04/14/2018 Pt Yxk0825 INR 1.8 04/14/2018 Pt Ouc5073 Low Intensity - 1.5-2.0 04/14/2018 Pt Djo5226 Mod intensity - 2.0-3.0 04/14/2018 Pt Coi6490 Hi intensity - 3.0-4.0 04/14/2018 Lipid Ord30 CHOL 149 mg/dL 04/14/2018 Lipid Ord30 HDL 49.0 mg/dl 04/14/2018 Lipid Ord30 TRIG 161 mg/dL 04/14/2018 Lipid Ord30 LDL 68 mg/dL 04/14/2018 Lipid Ord30 C/HDL 3.0 Ratio 04/14/2018 %Hba1C Mag482 % HbA1c 12486-3 5.9 % 04/14/2018 %Hba1C Nmm772 Gluc Ave 123 mg/dL 04/14/2018 Comp Metabolic Roy266 NA 140 mEq/L 04/14/2018 Comp Metabolic Qed523 K 4.1 mEq/L 04/14/2018 Comp Metabolic Mph521 CL 105 mEq/L 04/14/2018 Comp Metabolic Ocz308 CO2 28.0 mEq/L 04/14/2018 Comp Metabolic Lpq047 AN ION GAP 11 04/14/2018 Comp Metabolic Mjn067 GL UCOSE 112 mg/dL 04/14/2018 Comp Metabolic Foy962 Cr eat 1.0 mg/dL 04/14/2018 Comp Metabolic Fkn262 eG FR 58 ml/min/1.73m2 04/14 Comp Metabolic Nkm180 BUN 20 mg/dL 04/14/2018 Comp Metabolic Vfk619 B/ C Ratio 20.2 Ratio 04/14/2018 Comp Metabolic Ssq473 CA LCIUM 10.0 mg/dL 04/14/2018 Comp Metabolic Nto368 AL K PHOS 51 U/L 04/14/2018 Comp Metabolic Xzf366 T(SGOT) 24 U/L 04/14/2018 Comp Metabolic Iil880 AL T(SGPT) 21 U/L 04/14/2018 Comp Metabolic Jxk409 BI LI T 0.8 mg/dL 04/14/2018 Comp Metabolic Jkd782 AL BUMIN 4.2 g/dL 04/14/2018 Comp Metabolic Jfz520 TP RO 7.1 g/dL 04/14/2018 Comp Metabolic Unc596 GL OB 2.9 g/dL 04/14/2018 Comp Metabolic Ate332 A/ G Ratio 1.5 Ratio 04/14/2018 Comp Metabolic Gwc136 Os mo 283 mOsmo 04/14/2018 Cbc With [...] 30.7 pg 04/14/2018 Cbc With Differential Ord2 Osborne% 10.6 % 04/14/2018 Cbc With Differential Ord2 [...] 1.18 K/ul 04/14/2018 Cbc With Differential Ord2 [place] ABS# 0.5 K/ul 04/14/2018 Cbc With Differential Ord2 Eos ABS# 0.2 K/ul 04/14/2018 Cbc With Differential Ord2 Baso ABS# 0.1 K/ul 04/14/2018 Pt Him3693 PT 29.3 seconds 02/11/2018 Pt Iar8723 INR 2.8 02/11/2018 Pt Vez6144 Low Intensity - 1.5-2.0 02/11/2018 Pt Mxc4602 Mod intensity - 2.0-3.0 02/11/2018 Pt Ats4492 Hi intensity - 3.0-4.0 02/11/2018 Comp Metabolic Iqn860 NA 141 mEq/L 01/05/2018 Comp Metabolic Ljk320 K 3.7 mEq/L 01/05/2018 Comp Metabolic Iis868 CL 102 mEq/L 01/05/2018 Comp Metabolic Rsz799 CO2 29.0 mEq/L 01/05/2018 Comp Metabolic Pvv397 AN ION GAP 14 01/05/2018 Comp Metabolic Iho874 GL UCOSE 136 mg/dL 01/05/2018 Comp Metabolic Wtx249 Cr eat 1.0 mg/dL 01/05/2018 Comp Metabolic Xwb484 eG FR 61 ml/min/1.73m2 01/05 Comp Metabolic Eqq905 BUN 22 mg/dL 01/05/2018 Comp Metabolic Rlh229 B/ C Ratio 22.9 Ratio 01/05/2018 Comp Metabolic Vik424 CA LCIUM 9.7 mg/dL 01/05/2018 Comp Metabolic Dwl668 AL K PHOS 57 U/L 01/05/2018 Comp Metabolic Rvy829 T(SGOT) 21 U/L 01/05/2018 Comp Metabolic Ndn209 AL T(SGPT) 19 U/L 01/05/2018 Comp Metabolic New592 BI LI T 0.9 mg/dL 01/05/2018 Comp Metabolic Ons982 AL BUMIN 4.1 g/dL 01/05/2018 Comp Metabolic Dho115 TP RO 7.1 g/dL 01/05/2018 Comp Metabolic Xar070 GL OB 3.0 g/dL 01/05/2018 Comp Metabolic Mid841 A/ G Ratio 1.4 Ratio 01/05/2018 Comp Metabolic Hrv037 Os mo 287 mOsmo 01/05/2018 Free T4 Ods791 FREE T4 1.05 ng/dL 01/05/2018 %Hba1C Rct177 % HbA1c 70314-7 6.0 % 01/05/2018 %Hba1C Qdd438 Gluc Ave 126 mg/dL 01/05/2018 Cbc With [...] 30.6 pg 01/05/2018 Cbc With Differential Ord2 Osborne% 10.5 % 01/05/2018 Cbc With Differential Ord2 [...] 1.27 K/ul 01/05/2018 Cbc With Differential Ord2 [place] ABS# 0.5 K/ul 01/05/2018 Cbc With Differential Ord2 Eos ABS# 0.2 K/ul 01/05/2018 Cbc With Differential Ord2 Baso ABS# 0.1 K/ul 01/05/2018 Pt Srz5309 PT 20.7 seconds 01/05/2018 Pt Lfp3319 INR 1.8 01/05/2018 Pt Jeo8931 Low Intensity - 1.5-2.0 01/05/2018 Pt Auz6371 Mod intensity - 2.0-3.0 01/05/2018 Pt Ivx1227 Hi intensity - 3.0-4.0 01/05/2018 Tsh Ord6 TSH (3rd IS) 2.34 uIU/mL 01/05/2018 Lipid Ord30 CHOL 156 mg/dL 01/05/2018 Lipid Ord30 HDL 48.0 mg/dl 01/05/2018 Lipid Ord30 TRIG 207 mg/dL 01/05/2018 Lipid Ord30 LDL 67 mg/dL 01/05/2018 Lipid Ord30 C/HDL 3.3 Ratio 01/05/2018 Pt Duz8643 PT 28.3 seconds 11/26/2017 Pt Omg8149 INR 2.6 11/26/2017 Pt Emv2662 Low Intensity - 1.5-2.0 11/26/2017 Pt Aae4401 Mod intensity - 2.0-3.0 11/26/2017 Pt Sej0482 Hi intensity - 3.0-4.0 11/26/2017 Pt Mnq4406 PT 36.5 seconds 11/19/2017 Pt Imu0650 INR 3.6 11/19/2017 Pt Qmm5560 Low Intensity - 1.5-2.0 11/19/2017 Pt Mfq6119 Mod intensity - 2.0-3.0 11/19/2017 Pt Isw9620 Hi intensity - 3.0-4.0 11/19/2017 Pt Uwh1254 PT 22.9 seconds 10/15/2017 Pt Dum2240 INR 2.0 10/15/2017 Pt Oxb4023 Low Intensity - 1.5-2.0 10/15/2017 Pt Fqk3165 Mod intensity - 2.0-3.0 10/15/2017 Pt Tsg0044 Hi intensity - 3.0-4.0 10/15/2017 Pt Kah7048 PT 25.9 seconds 10/01/2017 Pt Yru6926 INR 2.4 10/01/2017 Pt Ivk3119 Low Intensity - 1.5-2.0 10/01/2017 Pt Foi6822 Mod intensity - 2.0-3.0 10/01/2017 Pt Azj4595 Hi intensity - 3.0-4.0 10/01/2017 Pt Hsd0229 PT 20.6 seconds 09/24/2017 Pt Nsd3439 INR 1.8 09/24/2017 Pt Xnl2410 Low Intensity - 1.5-2.0 09/24/2017 Pt Szm8124 Mod intensity - 2.0-3.0 09/24/2017 Pt Nzd2320 Hi intensity - 3.0-4.0 09/24/2017 Pt Rqb8865 PT 21.0 seconds 09/15/2017 Pt Qxo9938 INR 1.8 09/15/2017 Pt Cpi6836 Low Intensity - 1.5-2.0 09/15/2017 Pt Nju1030 Mod intensity - 2.0-3.0 09/15/2017 Pt Odt7543 Hi intensity - 3.0-4.0 09/15/2017 Pt Swr8934 PT 19.0 seconds 09/03/2017 Pt Neb7895 INR 1.6 09/03/2017 Pt Kgq4601 Low Intensity - 1.5-2.0 09/03/2017 Pt Ssv2717 Mod intensity - 2.0-3.0 09/03/2017 Pt Aub5185 Hi intensity - 3.0-4.0 09/03/2017 Pt Bqk6388 PT 17.6 seconds 08/23/2017 Pt Obz5730 INR 1.5 08/23/2017 Pt Xem1847 Low Intensity - 1.5-2.0 08/23/2017 Pt Pgl7058 Mod intensity - 2.0-3.0 08/23/2017 Pt Xoo2247 Hi intensity - 3.0-4.0 08/23/2017 Pt Ouw7904 PT 12.7 seconds 08/20/2017 Pt Gey6547 INR 1.0 08/20/2017 Pt Vua2066 Low Intensity - 1.5-2.0 08/20/2017 Pt Ssm7344 Mod intensity - 2.0-3.0 08/20/2017 Pt Mii6746 Hi intensity - 3.0-4.0 08/20/2017 Pt Nii2043 PT 12.9 seconds 08/17/2017 Pt Rfx9233 INR 1.0 08/17/2017 Pt Scf3154 Low Intensity - 1.5-2.0 08/17/2017 Pt Cwj4249 Mod intensity - 2.0-3.0 08/17/2017 Pt Qjh0827 Hi intensity - 3.0-4.0 08/17/2017 Pt Aje4942 PT 18.5 seconds 08/10/2017 Pt Rkd0811 INR 1.6 08/10/2017 Pt Box8469 Low Intensity - 1.5-2.0 08/10/2017 Pt Wzw9924 Mod intensity - 2.0-3.0 08/10/2017 Pt Lhr9308 Hi intensity - 3.0-4.0 08/10/2017 Tsh Ord6 [...] 29.3 pg 05/27/2017 Cbc With Differential Ord2 [place]% 8.1 % 05/27/2017 Cbc With Differential Ord2 [...] 1.11 K/ul 05/27/2017 Cbc With Differential Ord2 [place] ABS# 0.6 K/ul 05/27/2017 Cbc With Differential Ord2 Eos ABS# 0.2 K/ul 05/27/2017 Cbc With Differential Ord2 Baso ABS# 0.1 K/ul 05/27/2017 Pt Dqb9324 PT 28.2 seconds 05/27/2017 Pt Iok6579 INR 2.6 05/27/2017 Pt Any8241 Low Intensity - 1.5-2.0 05/27/2017 Pt Uxl8372 Mod intensity - 2.0-3.0 05/27/2017 Pt Zxd3471 Hi intensity - 3.0-4.0 05/27/2017 Lipid Ord30 CHOL 167 mg/dL 05/27/2017 Lipid Ord30 HDL 49.0 mg/dl 05/27/2017 Lipid Ord30 TRIG 347 mg/dL 05/27/2017 Lipid Ord30 LDL 49 mg/dL 05/27/2017 Lipid Ord30 C/HDL 3.4 Ratio 05/27/2017 Magnesium Ord90 Mag 1.4 mg/dL 05/27/2017 %Hba1C Ein740 % HbA1c 93542-4 5.9 % 05/27/2017 %Hba1C Rqr823 Gluc Ave 123 mg/dL 05/27/2017 Comp Metabolic Yuj308 NA 138 mEq/L 05/27/2017 Comp Metabolic Mwy224 K 4.1 mEq/L 05/27/2017 Comp Metabolic Aqe892 CL 101 mEq/L 05/27/2017 Comp Metabolic Oyl035 CO2 31.0 mEq/L 05/27/2017 Comp Metabolic Tkk647 AN ION GAP 10 05/27/2017 Comp Metabolic Yln263 GL UCOSE 117 mg/dL 05/27/2017 Comp Metabolic Sre895 Cr eat 0.9 mg/dL 05/27/2017 Comp Metabolic Dvs704 eG FR 62 ml/min/1.73m2 05/27 Comp Metabolic Nvd060 BUN 25 mg/dL 05/27/2017 Comp Metabolic Wyu164 B/ C Ratio 26.6 Ratio 05/27/2017 Comp Metabolic Xjz851 CA LCIUM 9.5 mg/dL 05/27/2017 Comp Metabolic Mvr938 AL K PHOS 73 U/L 05/27/2017 Comp Metabolic Tvy585 T(SGOT) 18 U/L 05/27/2017 Comp Metabolic Rvd442 AL T(SGPT) 12 U/L 05/27/2017 Comp Metabolic Zjl404 BI LI T 0.5 mg/dL 05/27/2017 Comp Metabolic Kqa833 AL BUMIN 4.1 g/dL 05/27/2017 Comp Metabolic Tdq694 TP RO 7.1 g/dL 05/27/2017 Comp Metabolic Vii400 GL OB 3.0 g/dL 05/27/2017 Comp Metabolic Xro964 A/ G Ratio 1.3 Ratio 05/27/2017 Comp Metabolic Hks972 Os mo 281 mOsmo 05/27/2017 Free T4 Uor859 FREE T4 0.91 ng/dL 05/27/2017 Pt Yeu9006 PT 29.2 seconds 04/16/2017 Pt Aes3060 INR 2.7 04/16/2017 Pt Sdg7658 Low Intensity - 1.5-2.0 04/16/2017 Pt Pcd2138 Mod intensity - 2.0-3.0 04/16/2017 Pt Jxc8659 Hi intensity - 3.0-4.0 04/16/2017 Pt Hkp8658 PT 30.7 seconds 03/31/2017 Pt Bxi7073 INR 2.9 03/31/2017 Pt Hvh7500 Low Intensity - 1.5-2.0 03/31/2017 Pt Pxb2449 Mod intensity - 2.0-3.0 03/31/2017 Pt Zlv2021 Hi intensity - 3.0-4.0 03/31/2017 Pt Ejx9558 PT 21.3 seconds 03/26/2017 Pt Cte8656 INR 1.9 03/26/2017 Pt Yxi0689 Low Intensity - 1.5-2.0 03/26/2017 Pt Zjh0252 Mod intensity - 2.0-3.0 03/26/2017 Pt Ndb6704 Hi intensity - 3.0-4.0 03/26/2017 Pt Flc7060 PT 19.8 seconds 03/22/2017 Pt Ojo7559 INR 1.7 03/22/2017 Pt Oco4920 Low Intensity - 1.5-2.0 03/22/2017 Pt Lib8836 Mod intensity - 2.0-3.0 03/22/2017 Pt Cem4787 Hi intensity - 3.0-4.0 03/22/2017 Pt Oki6478 PT 15.6 seconds 03/19/2017 Pt Ghs3151 INR 1.3 03/19/2017 Pt Cia7777 Low Intensity - 1.5-2.0 03/19/2017 Pt Thc4990 Mod intensity - 2.0-3.0 03/19/2017 Pt Qpv3196 Hi intensity - 3.0-4.0 03/19/2017 Pt Uzb6049 PT 13.7 seconds 03/15/2017 Pt Nnk6229 INR 1.1 03/15/2017 Pt Tmc4115 Low Intensity - 1.5-2.0 03/15/2017 Pt Uef5409 Mod intensity - 2.0-3.0 03/15/2017 Pt Nrz3621 Hi intensity - 3.0-4.0 03/15/2017 Pt Fku4817 PT 25.8 seconds 01/28/2017 Pt Xwg1581 INR 2.4 01/28/2017 Pt Xkq1317 Low Intensity - 1.5-2.0 01/28/2017 Pt Syh1545 Mod intensity - 2.0-3.0 01/28/2017 Pt Kbg9594 Hi intensity - 3.0-4.0 01/28/2017 %Hba1C Ifj090 % HbA1c 56802-9 6.4 % 10/23/2016 %Hba1C Xem589 Gluc Ave 137 mg/dL 10/23/2016 Comp Metabolic Cwr540 NA 138 mEq/L 10/23/2016 Comp Metabolic Wlb520 K 3.4 mEq/L 10/23/2016 Comp Metabolic Pxm150 CL 100 mEq/L 10/23/2016 Comp Metabolic Kvd153 CO2 30.0 mEq/L 10/23/2016 Comp Metabolic Etq833 AN ION GAP 11 10/23/2016 Comp Metabolic Xul679 GL UCOSE 139 mg/dL 10/23/2016 Comp Metabolic Unb325 Cr eat 0.9 mg/dL 10/23/2016 Comp Metabolic Jzh451 eG FR 62 ml/min/1.73m2 10/23 Comp Metabolic Kum253 BUN 22 mg/dL 10/23/2016 Comp Metabolic Lgd632 B/ C Ratio 23.4 Ratio 10/23/2016 Comp Metabolic Uqm497 CA LCIUM 8.7 mg/dL 10/23/2016 Comp Metabolic Cee077 AL K PHOS 66 U/L 10/23/2016 Comp Metabolic Wpp963 T(SGOT) 20 U/L 10/23/2016 Comp Metabolic Svs925 AL T(SGPT) 10 U/L 10/23/2016 Comp Metabolic Qkw935 BI LI T 0.5 mg/dL 10/23/2016 Comp Metabolic Sva462 AL BUMIN 3.5 g/dL 10/23/2016 Comp Metabolic Wrf002 TP RO 6.3 g/dL 10/23/2016 Comp Metabolic Pen439 GL OB 2.8 g/dL 10/23/2016 Comp Metabolic Pyg040 A/ G Ratio 1.3 Ratio 10/23/2016 Comp Metabolic Jcw245 Os mo 281 mOsmo 10/23/2016 Pt Dbo3214 PT 26.8 seconds 10/23/2016 Pt Iwi7469 INR 2.7 10/23/2016 Pt Auw8451 Low Intensity - 1.5-2.0 10/23/2016 Pt Jzt9565 Mod intensity - 2.0-3.0 10/23/2016 Pt Bwa1849 Hi intensity - 3.0-4.0 10/23/2016 Pt Ggv3025 PT 28.3 seconds 09/25/2016 Pt Buj9251 INR 2.8 09/25/2016 Pt Mzi8854 Low Intensity - 1.5-2.0 09/25/2016 Pt Jei7002 Mod intensity - 2.0-3.0 09/25/2016 Pt Yhm5332 Hi intensity - 3.0-4.0 09/25/2016 Metabolic Ord15 [...] Metabolic Ord15 CALCIUM 8.8 mg/dL 09/25/2016 Pt Cvc1123 PT 30.6 seconds 09/11/2016 Pt Bgj3201 INR 3.2 09/11/2016 Pt Fku4571 Low Intensity - 1.5-2.0 09/11/2016 Pt Iat7503 Mod intensity - 2.0-3.0 09/11/2016 Pt Gog4517 Hi intensity - 3.0-4.0 09/11/2016 Comp Metabolic Bne990 NA 138 mEq/L 09/11/2016 Comp Metabolic Ggb934 K 4.4 mEq/L 09/11/2016 Comp Metabolic Ctt324 CL 103 mEq/L 09/11/2016 Comp Metabolic Pbv305 CO2 31.0 mEq/L 09/11/2016 Comp Metabolic Mlx013 AN ION GAP 8 09/11/2016 Comp Metabolic Mtm689 GL UCOSE 146 mg/dL 09/11/2016 Comp Metabolic Rhi532 Cr eat 1.0 mg/dL 09/11/2016 Comp Metabolic Dbn900 eG FR 60 ml/min/1.73m2 09/11 Comp Metabolic Hve935 BUN 16 mg/dL 09/11/2016 Comp Metabolic Qoy145 B/ C Ratio 16.5 Ratio 09/11/2016 Comp Metabolic Qze519 CA LCIUM 8.7 mg/dL 09/11/2016 Comp Metabolic Tws806 AL K PHOS 52 U/L 09/11/2016 Comp Metabolic Ueu527 T(SGOT) 19 U/L 09/11/2016 Comp Metabolic Axk640 AL T(SGPT) 11 U/L 09/11/2016 Comp Metabolic Yon506 BI LI T 0.7 mg/dL 09/11/2016 Comp Metabolic Tqj316 AL BUMIN 3.3 g/dL 09/11/2016 Comp Metabolic Qum472 TP RO 5.8 g/dL 09/11/2016 Comp Metabolic Bym630 GL OB 2.5 g/dL 09/11/2016 Comp Metabolic Pbm099 A/ G Ratio 1.3 Ratio 09/11/2016 Comp Metabolic Bdc940 Os mo 280 mOsmo 09/11/2016 C-Reactive Protein Qnt Crqnt CRP 0.1 mg/dl 08/21/2016 Comp Metabolic Elk188 NA 139 mEq/L 08/21/2016 Comp Metabolic Guy348 K 4.1 mEq/L 08/21/2016 Comp Metabolic Zuk929 CL 102 mEq/L 08/21/2016 Comp Metabolic Cke481 CO2 30.0 mEq/L 08/21/2016 Comp Metabolic Zew763 AN ION GAP 11 08/21/2016 Comp Metabolic Htd071 GL UCOSE 148 mg/dL 08/21/2016 Comp Metabolic Jxj348 Cr eat 1.0 mg/dL 08/21/2016 Comp Metabolic Owr358 eG FR 55 ml/min/1.73m2 08/21 Comp Metabolic Hiw000 BUN 21 mg/dL 08/21/2016 Comp Metabolic Dlh640 B/ C Ratio 20.2 Ratio 08/21/2016 Comp Metabolic Axi473 CA LCIUM 9.4 mg/dL 08/21/2016 Comp Metabolic Zko582 AL K PHOS 63 U/L 08/21/2016 Comp Metabolic Udh554 T(SGOT) 23 U/L 08/21/2016 Comp Metabolic Bqu244 AL T(SGPT) 16 U/L 08/21/2016 Comp Metabolic Ncz604 BI LI T 0.6 mg/dL 08/21/2016 Comp Metabolic Jzl443 AL BUMIN 3.9 g/dL 08/21/2016 Comp Metabolic Skv317 TP RO 6.8 g/dL 08/21/2016 Comp Metabolic Grw146 GL OB 2.9 g/dL 08/21/2016 Comp Metabolic Bsd483 A/ G Ratio 1.4 Ratio 08/21/2016 Comp Metabolic Rct653 Os mo 283 mOsmo 08/21/2016 Sed Rate Ord21 ESR 16 mm/hr 08/21/2016 Pt Pef5243 PT 27.2 seconds 08/21/2016 Pt Kuy7628 INR 2.7 08/21/2016 Pt Bqy3194 Low Intensity - 1.5-2.0 08/21/2016 Pt Gye9431 Mod intensity - 2.0-3.0 08/21/2016 Pt Sqy0427 Hi intensity - 3.0-4.0 08/21/2016 Magnesium Ord90 Mag 1.9 mg/dL 08/21/2016 Pt Kuy6017 PT 25.9 seconds 06/17/2016 Pt Kay8679 INR 2.5 06/17/2016 Pt Oie8483 Low Intensity - 1.5-2.0 06/17/2016 Pt Yot7202 Mod intensity - 2.0-3.0 06/17/2016 Pt Pzq2340 Hi intensity - 3.0-4.0 06/17/2016 Tsh Ord6 hTSH II 2.13 uIU/mL 06/08/2016 Free T4 Xyp408 FREE T4 0.79 ng/dL 06/08/2016 Cbc With [...] 26.8 pg 06/08/2016 Cbc With Differential Ord2 [place]borne% 12.0 % 06/08/2016 Cbc With Differential Ord2 [...] 1.40 K/ul 06/08/2016 Cbc With Differential Ord2 [place] ABS# 0.7 K/ul 06/08/2016 Cbc With Differential Ord2 Eos ABS# 0.3 K/ul 06/08/2016 Cbc With Differential Ord2 Baso ABS# 0.1 K/ul 06/08/2016 %Hba1C Cav478 % HbA1c 89151-3 6.2 % 06/08/2016 %Hba1C Anl541 Gluc Ave 131 mg/dL 06/08/2016 Comp Metabolic Ynv686 NA 138 mEq/L 06/08/2016 Comp Metabolic Zet934 K 3.9 mEq/L 06/08/2016 Comp Metabolic Mql960 CL 105 mEq/L 06/08/2016 Comp Metabolic Zgr441 CO2 27.0 mEq/L 06/08/2016 Comp Metabolic Lga022 AN ION GAP 10 06/08/2016 Comp Metabolic Wkv347 GL UCOSE 127 mg/dL 06/08/2016 Comp Metabolic Zyi369 Cr eat 1.0 mg/dL 06/08/2016 Comp Metabolic Ydk374 eG FR 59 ml/min/1.73m2 06/08 Comp Metabolic Yvo373 BUN 19 mg/dL 06/08/2016 Comp Metabolic Ddx701 B/ C Ratio 19.4 Ratio 06/08/2016 Comp Metabolic Kpk588 CA LCIUM 9.2 mg/dL 06/08/2016 Comp Metabolic Qhu701 AL K PHOS 77 U/L 06/08/2016 Comp Metabolic Aze192 T(SGOT) 19 U/L 06/08/2016 Comp Metabolic Vxs917 AL T(SGPT) 13 U/L 06/08/2016 Comp Metabolic Rna763 BI LI T 0.5 mg/dL 06/08/2016 Comp Metabolic Vxb462 AL BUMIN 3.8 g/dL 06/08/2016 Comp Metabolic Rwe141 TP RO 6.6 g/dL 06/08/2016 Comp Metabolic Mih644 GL OB 2.8 g/dL 06/08/2016 Comp Metabolic Whp440 A/ G Ratio 1.4 Ratio 06/08/2016 Comp Metabolic Dmw206 Os mo 280 mOsmo 06/08/2016 Pt Ptu5304 PT 36.1 seconds 06/08/2016 Pt Oep4354 INR 3.9 06/08/2016 Pt Wsz0430 Low Intensity - 1.5-2.0 06/08/2016 Pt Qam2201 Mod intensity - 2.0-3.0 06/08/2016 Pt Dhl1155 Hi intensity - 3.0-4.0 06/08/2016 Lipid Ord30 CHOL 149 mg/dL 06/08/2016 Lipid Ord30 HDL 46.0 mg/dl 06/08/2016 Lipid Ord30 TRIG 279 mg/dL 06/08/2016 Lipid Ord30 LDL 47 mg/dL 06/08/2016 Lipid Ord30 C/HDL 3.2 Ratio 06/08/2016 Pt Rsg6742 PT 30.9 seconds 02/12/2016 Pt Eop0233 INR 3.2 02/12/2016 Pt Tps0883 Low Intensity - 1.5-2.0 02/12/2016 Pt Vrz6454 Mod intensity - 2.0-3.0 02/12/2016 Pt Vqb5311 Hi intensity - 3.0-4.0 02/12/2016 Free T4 Age336 FREE T4 1.24 ng/dL 09/27/2015 %Hba1C Maz252 % HbA1c 60331-7 6.4 % 09/27/2015 %Hba1C Gpi665 Gluc Ave 137 mg/dL 09/27/2015 Tsh Ord6 hTSH II 0.37 uIU/mL 09/27/2015 Pt Pia1094 PT 26.2 seconds 09/27/2015 Pt Wnf6642 INR 2.5 09/27/2015 Pt Sdt5842 Low Intensity - 1.5-2.0 09/27/2015 Pt Aqg5565 Mod intensity - 2.0-3.0 09/27/2015 Pt Yhm6394 Hi intensity - 3.0-4.0 09/27/2015 Pt Dlt2280 PT 27.6 seconds 2015 Pt Tmo9153 INR 2.7 2015 Pt Qux3021 Low Intensity - 1.5-2.0 2015 Pt Djb5505 Mod intensity - 2.0-3.0 2015 Pt Cie7357 Hi intensity - 3.0-4.0 2015 %Hba1C Jpi895 % HbA1c 44520-3 6.1 % 06/11/2015 %Hba1C Qhd288 Gluc Ave 128 mg/dL 06/11/2015 Cbc With [...] Ord2 RDW 15.8 % 06/10/2015 Comp Metabolic Cgx110 NA 139 mEq/L 06/10/2015 Comp Metabolic Fby029 K 4.1 mEq/L 06/10/2015 Comp Metabolic Lxy231 CL 105 mEq/L 06/10/2015 Comp Metabolic Kgo112 CO2 27.0 mEq/L 06/10/2015 Comp Metabolic Mhi906 AN ION GAP 11 06/10/2015 Comp Metabolic Iov229 GL UCOSE 127 mg/dL 06/10/2015 Comp Metabolic Yiv633 Cr eat 1.0 mg/dL 06/10/2015 Comp Metabolic Yrw848 eG FR 59 ml/min/1.73m2 06/10 Comp Metabolic Pqd032 BUN 21 mg/dL 06/10/2015 Comp Metabolic Iui082 B/ C Ratio 21.2 Ratio 06/10/2015 Comp Metabolic Wkr499 CA LCIUM 9.2 mg/dL 06/10/2015 Comp Metabolic Qef863 AL K PHOS 87 U/L 06/10/2015 Comp Metabolic Xry681 T(SGOT) 20 U/L 06/10/2015 Comp Metabolic Uzs552 AL T(SGPT) 17 U/L 06/10/2015 Comp Metabolic Cet967 BI LI T 0.4 mg/dL 06/10/2015 Comp Metabolic Aks311 AL BUMIN 4.1 g/dL 06/10/2015 Comp Metabolic Zih594 TP RO 7.2 g/dL 06/10/2015 Comp Metabolic Mlm109 GL OB 3.1 g/dL 06/10/2015 Comp Metabolic Rzd363 A/ G Ratio 1.3 Ratio 06/10/2015 Comp Metabolic Gpd673 Os mo 282 mOsmo 06/10/2015 Tsh Ord6 hTSH II 0.86 uIU/mL 06/10/2015 Lipid Ord30 CHOL 161 mg/dL 06/10/2015 Lipid Ord30 HDL 49.0 mg/dl 06/10/2015 Lipid Ord30 TRIG 208 mg/dL 06/10/2015 Lipid Ord30 LDL 70 mg/dL 06/10/2015 Lipid Ord30 C/HDL 3.3 Ratio 06/10/2015 Pt Nyv3243 PT 25.0 seconds 04/09/2015 Pt Udt3971 INR 2.4 04/09/2015 Pt Olg2976 Low Intensity - 1.5-2.0 04/09/2015 Pt Phf8940 Mod intensity - 2.0-3.0 04/09/2015 Pt Ivk5518 Hi intensity - 3.0-4.0 04/09/2015 Free T4 Lrp463 FREE T4 1.05 ng/dL 01/22/2015 Pt Kpy0498 PT 27.2 seconds 01/22/2015 Pt Fjt6240 INR 2.6 01/22/2015 Pt Hjd8421 Low Intensity - 1.5-2.0 01/22/2015 Pt Iex9588 Mod intensity - 2.0-3.0 01/22/2015 Pt Tmv7947 Hi intensity - 3.0-4.0 01/22/2015 Cbc With [...] Differential Ord2 RDW 15.2 % 01/22/2015 B12 Huq393 B12 402.00 pg/ml 01/22/2015 Tsh Ord6 hTSH II 0.65 uIU/mL 01/22/2015 Lipid Ord30 CHOL 166 mg/dL 01/22/2015 Lipid Ord30 HDL 48.0 mg/dl 01/22/2015 Lipid Ord30 TRIG 264 mg/dL 01/22/2015 Lipid Ord30 LDL 65 mg/dL 01/22/2015 Lipid Ord30 C/HDL 3.5 Ratio 01/22/2015 Comp Metabolic Rqz968 NA 138 mEq/L 01/22/2015 Comp Metabolic Unj919 K 4.1 mEq/L 01/22/2015 Comp Metabolic Olu300 CL 104 mEq/L 01/22/2015 Comp Metabolic Hod181 CO2 29.0 mEq/L 01/22/2015 Comp Metabolic Nqq081 AN ION GAP 9 01/22/2015 Comp Metabolic Obf564 GL UCOSE 106 mg/dL 01/22/2015 Comp Metabolic Ypf183 Cr eat 0.9 mg/dL 01/22/2015 Comp Metabolic Gvx059 eG FR 63 ml/min/1.73m2 01/22 Comp Metabolic Mzr762 BUN 21 mg/dL 01/22/2015 Comp Metabolic Neg615 B/ C Ratio 22.3 Ratio 01/22/2015 Comp Metabolic Rhl198 CA LCIUM 9.4 mg/dL 01/22/2015 Comp Metabolic Gbp075 AL K PHOS 83 U/L 01/22/2015 Comp Metabolic Qeq169 T(SGOT) 23 U/L 01/22/2015 Comp Metabolic Psu038 AL T(SGPT) 18 U/L 01/22/2015 Comp Metabolic Uka960 BI LI T 0.8 mg/dL 01/22/2015 Comp Metabolic Yyu516 AL BUMIN 4.2 g/dL 01/22/2015 Comp Metabolic Vvt700 TP RO 7.3 g/dL 01/22/2015 Comp Metabolic Hyc849 GL OB 3.1 g/dL 01/22/2015 Comp Metabolic Uei767 A/ G Ratio 1.4 Ratio 01/22/2015 Comp Metabolic Lgu979 Os mo 279 mOsmo 01/22/2015 Review of [...] Procedure Codes Date THER/PROPH/DIAG INJ SC/IM CPT-4: 54488 09/02/2018 TRIAMCINOLONE ACET I [place] NOS CPT-4: J3301 09/02/2018 URINALYSIS NONAUTO W /O SCOPE CPT-4: 45428 03/05/2017 Vital Signs Date Vital 09/02/2018 Blood Pressure 1: 128/72 Code: 8480-6 BMI: 38.2 Code: 20814-1 Heart Rate 1: 80 bpm Height: 5'1" SpO2: 98% Weight: 202 lbs 04/14/2018 Blood Pressure 1: 116/78 Code: 8480-6 BMI: 41.6 Code: 10833-2 Heart Rate 1: 72 bpm Height: 5'1" SpO2: 98% Weight: 220 lbs 01/18/2018 Blood Pressure 1: 132/74 Code: 8480-6 BMI: 43.5 Code: 55962-5 Heart Rate 1: 70 bpm Height: 5'1" SpO2: 97% Weight: 230 lbs 01/04/2018 Blood Pressure 1: 134/76 Code: 8480-6 BMI: 42.7 Code: 42150-0 Heart Rate 1: 83 bpm Height: 5'1" SpO2: 98% Weight: 226 lbs 09/23/2017 Blood Pressure 1: 124/76 Code: 8480-6 BMI: 42.3 Code: 72097-9 Heart Rate 1: 94 bpm Height: 5'1" SpO2: 96% Weight: 224 lbs 05/27/2017 Blood Pressure 1: 146/78 Code: 8480-6 BMI: 41.4 Code: 99667-7 Heart Rate 1: 85 bpm Height: 5'1" SpO2: 98% Weight: 219 lbs 02/24/2017 Blood Pressure 1: 138/66 Code: 8480-6 BMI: 41.4 Code: 57103-4 Heart Rate 1: 78 bpm Height: 5'1" SpO2: 97% Weight: 219 lbs 11/02/2016 Blood Pressure 1: 144/72 Code: 8480-6 BMI: 46.1 Code: 76603-8 Heart Rate 1: 78 bpm Height: 5'1" SpO2: 98% Weight: 244 lbs 09/30/2016 Blood Pressure 1: 130/76 Code: 8480-6 BMI: 45.0 Code: 23820-6 Heart Rate 1: 86 bpm Height: 5'1" SpO2: 98% Weight: 238 lbs 09/10/2016 Blood Pressure 1: 136/68 Code: 8480-6 BMI: 46.3 Code: 06697-6 Heart Rate 1: 83 bpm Height: 5'1" SpO2: 98% Weight: 245 lbs 08/20/2016 Blood Pressure 1: 142/78 Code: 8480-6 BMI: 45.3 Code: 99385-6 Heart Rate 1: 84 bpm Height: 5'1" SpO2: 99% Weight: 240 lbs 06/08/2016 Blood Pressure 1: 134/76 Code: 8480-6 BMI: 44.2 Code: 84576-2 Heart Rate 1: 86 bpm Height: 5'1" SpO2: 96% Weight: 234 lbs 04/02/2016 Blood Pressure 1: 142/70 Code: 8480-6 BMI: 44.6 Code: 24075-7 Heart Rate 1: 78 bpm Height: 5'1" SpO2: 97% Weight: 236 lbs 01/14/2016 Blood Pressure 1: 146/72 Code: 8480-6 BMI: 44.2 Code: 03742-8 Heart Rate 1: 86 bpm Height: 5'1" SpO2: 96% Weight: 234 lbs 10/02/2015 Blood Pressure 1: 158/76 Code: 8480-6 BMI: 44.2 Code: 93488-8 Heart Rate 1: 67 bpm Height: 5'1" SpO2: 97% Weight: 234 lbs 07/15/2015 Blood Pressure 1: 200/90 Code: 8480-6 Blood Pressure 1: 148/78 Code: 8480-6 BMI: 44.0 Code: 49396-2 Heart Rate 1: 89 bpm Height: 5'1" SpO2: 97% Weight: 233 lbs 06/10/2015 Blood Pressure 1: 140/82 Code: 8480-6 BMI: 44.0 Code: 26259-9 Heart Rate 1: 78 bpm Height: 5'1" [...] wearing crocs and there was a new turkish on the floor: her foot didn't move [...] Encounters Encounter Performer Loca tion Codes Date 05558 EST. PATIENT, LEVEL IV Diagnosis: Other acute sinusitis[ICD10: J01.80] Diagnosis: Other allergic rhinitis[ICD10: J30.89] Nata Almanza MD, [facility] CPT-4: 58906 09/02/2018 ([id number]) 71679 EST. P ATIENT, LEVEL IV Diagnosis: Essential (primary) hypertension[ICD10: I10] Diagnosis: Hypothyroidism, unspecified[ICD10: E03.9] Diagnosis: Impaired fasting glucose[ICD10: R73.01] Diagnosis: residential (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[ICD10: Z79.01] Edna Almanza MD, [facility] CPT-4: 52650 04/14/2018 ([id number]) 66195 EST. P ATIENT, LEVEL III Diagnosis: Localized edema[ICD10: R60.0] Diagnosis: Gastro-esophageal reflux disease without esophagitis[ICD10: K21.9] Edna Almanza MD, [facility] CPT-4: 55289 01/18/2018 ([id number]) 40490 EST. P ATIENT, LEVEL IV Diagnosis: Gastro-esophageal reflux disease without esophagitis[ICD10: K21.9] Diagnosis: Localized edema[ICD10: R60.0] Diagnosis: Essential (primary) hypertension[ICD10: I10] Diagnosis: Hypothyroidism, unspecified[ICD10: E03.9] Diagnosis: Impaired fasting glucose[ICD10: R73.01] Edna Almanza MD, [facility] CPT-4: 79290 01/04/2018 ([id number]) 33689 EST. P ATIENT, LEVEL IV Diagnosis: Essential (primary) hypertension[ICD10: I10] Diagnosis: residential (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[ICD10: Z79.01] Diagnosis: Incisional hernia without obstruction or gangrene[ICD10: K43.2] Diagnosis: Right lower quadrant pain[ICD10: R10.31] Sarai Almanza MD, [facility] CPT-4: 63051 09/23/2017 ([id number]) 03682 EST. 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 PATIENT, LEVEL III Diagnosis: Pain in right hip[ICD10: M25.551] Nata Almanza MD, [facility] CPT-4: 10533 02/24/2017 ([id number]) 31414 EST. P ATIENT, LEVEL IV Diagnosis: Essential (primary) hypertension[ICD10: I10] Diagnosis: Localized edema[ICD10: R60.0] Diagnosis: Pain in right hip[ICD10: M25.551] Sarai Almanza MD, [facility] CPT-4: 76760 11/02/2016 ([id number]) 67546 EST. P ATIENT, LEVEL IV Diagnosis: Essential (primary) hypertension[ICD10: I10] Diagnosis: Localized edema[ICD10: R60.0] Sarai Almanza MD, [facility] CPT-4: 08566 09/30/2016 29692 EST. PATIENT, LEVEL IV Diagnosis: Localized edema[ICD10: R60.0] Diagnosis: Pain in joints of left hand[ICD10: M25.542] Diagnosis: Pain in joints of right hand[ICD10: M25.541] Nata Almanza MD, [facility] CPT-4: 48004 09/10/2016 01425 EST. PATIENT, LEVEL IV Diagnosis: Localized edema[ICD10: R60.0] Diagnosis: Pain in joints of left hand[ICD10: M25.542] Diagnosis: Pain in joints of right hand[ICD10: M25.541] Diagnosis: Other fatigue[ICD10: R53.83] Nata Almanza MD, [facility] CPT-4: 96906 08/20/2016 24717 EST. 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 PATIENT, LEVEL IV Diagnosis: Other allergic rhinitis[ICD10: J30.89] Diagnosis: Acute laryngopharyngitis[ICD10: J06.0] Nata Almanza MD, [facility] CPT-4: 42727 04/02/2016 68978 EST. PATIENT, LEVEL IV Diagnosis: Left upper quadrant pain[ICD10: R10.12] Nata Almanza MD, [facility] CPT-4: 95656 01/14/2016 57223 EST. PATIENT, LEVEL IV Diagnosis: Pain in left shoulder[ICD10: M25.512] Diagnosis: Body mass index (BMI) 40.0-44.9, adult[ICD10: Z68.41] Nata Almanza MD, [facility] CPT-4: 98973 10/02/2015 30665 EST. 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 09/02/2018 Appointment: Nata Hsu WPtel: [address] [place], [place] [address] (15 min) Moderate 09/02/2018 Patient Education: Patient [...] Hgb A1C 04/14/2018 Appointment: Edna Douglas WPtel: [phone] (15 min) Moderate 04/14/2018 Patient Education: [...] to further attempt to reduce peripheral edema. OEQI-npmztgwh-aplezktp prilosec BID and carafate QID -discussed low spice, low acidic diet 01/18/2018 Appointment: Edna Douglas WPtel: [phone] [phone] (15 min) Moderate 01/18/2018 Patient Education: [...] of control. 01/04/2018 [facility]ment[phone] [phone] [place] (30 min) Complex 01/04/2018 Patient Education: Patient Medication Summary Completed 01/04/2018 Care Plan: SCREENINGMAMMOGRAPHYDIGITAL LOINC : 74986-1 Pending 01/04/2018 Visit Plan: Abdominal hernia - not able to be taken to surgery by local providers and pt has been seen at [facility] and that surgeon felt like Kat would [...] at home. 09/23/2017 Appointment: [phone] [facility] [place] (15 min) Moderate 09/23/2017 Patient Education: [...] to medications. 05/27/2017 [phone] (30 min) Complex 05/27/2017 Patient Education: Patient [...] Dr. Palacios. 02/24/2017 Appointment: [phone] [facility] [place] (30 min) Complex 02/24/2017 Patient Education: [...] dr. Chaney. 11/02/2016 Appointment: Sarai Almanza WPtel: [phone] [facility] (15 min) Moderate 11/02/2016 Patient Education: Patient [...] peripheral edema. 09/30/2016 Appointment: Sarai Almanza WPtel: [phone] [facility] (15 min) Moderate 09/30/2016 Patient Education: Patient [...] edema. 09/10/2016 Appointment: Nata Hsu WPtel: [phone] [facility] [place] (30 min) Complex 09/10/2016 Patient Education: Patient [...] peripheral edema. 08/20/2016 Appointment: Nata Hsu WPtel: [phone] [facility]66[facility] (30 min) Complex 08/20/2016 Patient Education: Patient Medication Summary Completed 08/20/2016 Referral: Otf Lee [id number] Referral Initiated 07/02/2016 Visit Plan: Chronic Anticoagulant [...] 06/08/2016 Care Plan: Referral Order SNOMED-CT : [id number] Pending 06/08/2016 Visit Plan: URI - Pt [...] allergy spray. 04/02/2016 Appointment: Nata Hsu WPtel: [phone] [phone] (30 min) Complex 04/02/2016 Patient Education: Patient [...] acute pain 01/14/2016 Appointment: Edna Douglas WPtel: [phone] (30 min) Complex 01/14/2016 Patient Education: Patient Medication Summary Completed 01/14/2016 Patient Education: Obesity Completed 01/14/2016 Care Plan: BMI Above normal followup DAVID F-MGMT EDUC & TRAIN 1 PT Pending 10/24/2015 Care Plan: X-RAY EXAM OF SHOULDER LOINC : 37968-2 Pending 10/24/2015 Visit Plan: Left shoulder pain [...] weight check. 10/02/2015 Appointment: Edna Douglas WPtel: [phone] (15 min) Moderate 10/02/2015 Patient Education: Patient [...] ses Completed 06/10/2015 Appointment: Sarai Almanza WPtel: [facility] (15 min) Moderate 04/22/2015 Visit Plan: Hypertension [...] have surgical fixation - planning occurring at [facility]. Snoring - Sleep apnea symptoms with difficulty [...] to medications. 01/22/2015 Appointment: Sar[facility]manza [facility]el[phone] [facility] [place] ([place] New Patient 01/22/2015 Patient Education: Patient Medication Summary Completed 01/22/2015 Patient Education: Hypertension Completed 01/22/2015 [facility] [facility] Initiated Instructions Comment . Chronic Anticoagul [...] providers and pt has been seen at [facility] and that surgeon felt like Kat would [...] to further attempt to reduce peripheral edema. [facility]-ohscgmk[facility]-ynjaqtln prilosec BID and carafate QID -discussed low [...] control. Elevated blood sugars-check Hgb A1C dr willis kaplan e the staff get you scheduled for [...] have surgical fixation - planning occurring at [facility]. Snoring - Sleep apnea symptoms with difficulty [...]
--- OUTSIDE RECORDS SUMMARY | 2020-01-16 22:38 | XMS REPORT | CCD ---
Author Author Kat Almanza Organization Sarai Almanza MD, [facility] Address [address] [place] [address] Phone Care Team Providers Care Cane Weigher Name Role Phone PP Unavailable CCM Unavailable Summary Purpose Interface Exchange Insurance Providers Payer name Policy type / Coverage type Covered democrat ID Effective Begin Date Effective End Date WPS Medicare Part B Medicare Part B [id number] 2017 Unknown [employer] Medicare Part B [id number] 2017 Unknown Family history Father Diagnosis Age At Onset Hyperlipidemia Unknown Heart Attack Unknown Mother Diagnosis Age At Onset Arthritis Unknown Social History Social History Element Codes Description Effective Dates Marital status Unknown M arried Nathan 09/30/2016 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 Number of children Unknown 3 01/22/[address]: 721548533 Never smoker 01/22/[address]: 560425938 Never drinks alcohol 01/22/2015 Allergies, Adverse Reactions, Alerts Substance Reaction Codes Entered Date Inactivated Date Status * NO KNOWN DRUG ORIN RGIES Unknown 01/22/2015 No Inactive Date Active Past Medical History Illness Codes Condition Status Onset Date Resolved Date Mixed hyperlipidemia ICD-9: 272.4 ICD-10: E78.2 Active 06/09/2015 Unknown Hypothyroidism, unsp ecified ICD-9: 244.9 ICD-10: E03.9 Active 05/27/2017 Unknown 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 [...] 780.79 ICD-10: R53.83 Active 08/20/2016 Unknown Other group home (cur rent) drug therapy ICD-9: V58.69 ICD-10: [...] ICD-9: 244.9 ICD-10: E03.9 05/27/2017 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 [...] ICD-9: 780.79 ICD-10: R53.83 08/20/2016 Active Other group home (cur rent) drug therapy ICD-9: V58.69 ICD-10: [...] omeprazole 20 mg cap sean,delayed release RxNorm: 478426 TAKE ONE CAPSULE BY M OUTH TWICE A DAY 02/03/2019 07/26/2020 Active potassium chloride E R 20 mEq tablet,extended release RxNorm: 623695 TAKE ONE TABLET BY MOUTH DAILY 01/19/2019 04/18/2019 Active Carafate 1 gram tablet RxNorm: 829915 TAKE ONE TABLET BY MOUTH BEFORE MEALS AN D AT BEDTIME 12/30/2018 02/19/2019 Active Carafate 1 gram tablet RxNorm: 838001 TAKE ONE TABLET BY MOUTH BEFORE MEALS AN D AT BEDTIME 12/12/2018 12/29/2018 Inactive mupirocin 2 % topica l ointment RxNorm: 753302 1 Application TOP TID 12/08/2018 12/17/2018 Inactive mupirocin 2 % topica l ointment RxNorm: 127653 1 Application TOP TID 12/08/2018 12/07/2018 Inactive allopurinol 300 mg t ablet RxNorm: 278816 TAKE ONE TABLET BY MO UTH DAILY 11/22/2018 03/21/2019 Ac tive clonazepam 0.5 mg ta blet RxNorm: 176758 1 Tablet(s) PO BID 11/16/2018 04/14/2019 Active Carafate 1 gram tablet RxNorm: 137249 TAKE ONE TABLET BY MOUTH BEFORE MEALS AN D AT BEDTIME 11/15/2018 12/10/2018 Inactive atenolol 100 mg tablet RxNorm: 449540 TAKE ONE TABLET BY MOUTH DAILY 10/24/2018 05/21/2019 Ac tive potassium chloride E R 20 mEq tablet,extended release RxNorm: 976476 2 Tablet(s) PO daily 10/18/2018 02/14/2019 Active potassium chloride E R 20 mEq tablet,extended release RxNorm: 011030 1 Tablet(s) PO daily 10/03/2018 10/17/2018 Inactive Carafate 1 gram tablet RxNorm: 795818 TAKE ONE TABLET BY MOUTH BEFORE MEALS AN D AT BEDTIME 09/26/2018 11/14/2018 Inactive Plavix 75 mg tablet RxNorm: 511005 TAKE ONE TABLET BY MOUTH DAILY 09/02/2018 02/28/2019 Ac tive prednisone 10 mg tablet RxNorm: 762007 Tablet(s) PO 09/02/2018 No Stop Date Active 60,60,50,50,40,40,30,30,20,20,10,10 Synthroid 125 mcg ta blet RxNorm: 960563 1 Tablet(s) PO daily 09/02/2018 08/27/2019 Active potassium chloride E R 20 mEq tablet,extended release RxNorm: 755292 1 Tablet(s) PO daily 09/02/2018 09/01/2018 Inactive potassium chloride E R 20 mEq tablet,extended release RxNorm: 842683 1 Tablet(s) PO daily 09/02/2018 10/02/2018 Inactive Synthroid 125 mcg ta blet RxNorm: 146198 1 Tablet(s) PO daily 09/02/2018 09/01/2018 Inactive Keflex 500 mg capsule RxNorm: 165193 1 Capsule(s) PO TID 09/02/2018 09/08/2018 Inactive Kenalog 40 mg/mL maxine pension for injection RxNorm: 8843689 Milliliter(s) Inj 09/02/2018 09/02/2018 In active Lipitor 40 mg tablet RxNorm: 377939 TAKE ONE TABLET BY MOUTH DAILY 07/29/2018 07/23/2019 Ac tive Coumadin 1 mg tablet RxNorm: 451027 TAKE ONE TABLET BY MOUTH DAILY 07/29/2018 10/26/2018 In active Carafate 1 gram tablet RxNorm: 898541 TAKE ONE TABLET BY MOUTH BEFORE MEALS AN D AT BEDTIME 07/28/2018 09/17/2018 Inactive Coumadin 4 mg tablet RxNorm: 450991 2 Tablet(s) daily 07/11/2018 02/05/2019 Active Amilcari dani For:COUMADIN 4MG 07/22/2017 8:58:26 AM Coumadin 5 mg tablet RxNorm: 685631 Tablet(s) TAKE 1 TABLET BY MOUTH DIRE CTED 07/08/2018 01/03/2019 Inactive Generic For:COUMADIN 5MG TAB 03/21/2018 9:13:00 AM Coumadin 4 mg tablet RxNorm: 189661 Tablet(s) TAKE 1 TABLET BY MOUTH THREE T IMES PER WEEK (WEDNESDAY, WEDNESDAY AND WEDNESDAY) 07/08/2018 07/10/2018 Inactive Gene andre For:COUMADIN 4MG 07/22/2017 8:58:26 AM Coumadin 1 mg tablet RxNorm: 987034 1 Tablet(s) PO daily 07/08/2018 08/06/2018 Inactive venlafaxine ER 75 mg capsule,extended release 24 hr RxNorm: 928919 Capsule(s) TAKE 1 CAPSULE BY MOUTH ONCE DAILY 06/23/2018 06/17/2019 Active Generic For:*EFFEXOR XR 75MG 06/19/2017 12:23:45 PM sodium bicarbonate 6 50 mg tablet RxNorm: 150584 Tablet(s) TAKE 2 TABL ETS BY MOUTH TWICE DAILY 06/23/2018 12/19/2018 Inactive 12/20/2017 9:10:59 AM Coumadin 1 mg tablet RxNorm: 201750 1 Tablet(s) PO daily 06/17/2018 07/07/2018 Inactive Coumadin 1 mg tablet RxNorm: 042704 1 Tablet(s) PO daily 06/17/2018 06/16/2018 Inactive clonazepam 0.5 mg ta blet RxNorm: 464190 1 Tablet(s) PO BID 06/08/2018 11/03/2018 Inactive spironolactone 25 mg tablet RxNorm: 305133 TAKE 1 TABLET BY MOUT H EVERY DAY 05/18/2018 05/12/2019 Ac tive Generic For:*ALDACTONE 25MG 05/18/2018 8:57:50 AM Carafate 1 gram tablet RxNorm: 381124 TAKE ONE TABLET BY MOUTH BEFORE MEALS AN D AT BEDTIME 05/18/2018 07/12/2018 Inactive Generic For:CARAFATE 1GM 1 07/18/2017 8:38:28 AM Synthroid 137 mcg ta blet RxNorm: 590953 TAKE 1 TABLET BY MOUT H ONCE DAILY 05/18/2018 08/30/2018 In active Generic For:SYNTHROID 137MCG TAB 2017 8:57:54 AM allopurinol 300 mg t ablet RxNorm: 250863 TAKE 1 TABLET BY MOUT H ONCE DAILY. 04/18/2018 10/14/2018 In active Generic For:ZYLOPRIM 300 MG TABLET 03/22 9:13:47 AM Lasix 20 mg tablet RxNorm: 343026 TAKE ONE TABLET BY MOUTH DAILY 04/18/2018 08/15/2018 In active Generic For:LASIX 20MG 04/18/2018 9:13: 50 AM Carafate 1 gram tablet RxNorm: 936479 TAKE ONE TABLET BY MOUTH BEFORE MEALS AN D AT BEDTIME 04/18/2018 05/17/2018 Inactive Generic For:CARAFATE 1GM 1 9:32:51 AM Coumadin 5 mg tablet RxNorm: 416997 TAKE 1 TABLET BY MOUTH DIRECTED 03/21/2018 07/07/2018 In active Generic For:COUMADIN 5MG TAB 03/21/2018 9:13:00 AM Carafate 1 gram tablet RxNorm: 060255 TAKE ONE TABLET BY MOUTH BEFORE MEALS AN D AT BEDTIME 03/21/2018 04/17/2018 Inactive Generic For:CARAFATE 1GM 1 9:14:24 AM Carafate 1 gram tablet RxNorm: 192836 1 Tablet(s) PO AC & HS 02/17/2018 03/20/2018 Inactive atenolol 100 mg tablet RxNorm: 773096 1 Tablet(s) PO daily 02/04/2018 09/01/2018 Inactive atenolol 50 mg tablet RxNorm: 943528 1 Tablet(s) PO daily 02/03/2018 02/03/2018 Inactive omeprazole 20 mg cap sean,delayed release RxNorm: 269686 1 Capsule(s) BID 01/21/2018 01/15/2019 In active Generic For:PRILOSEC 20MG 07/22/2017 8:5 8:20 AM Carafate 1 gram tablet RxNorm: 774250 1 Tablet(s) PO AC & HS 01/21/2018 02/16/2018 Inactive Carafate 1 gram tablet RxNorm: 035038 1 Tablet(s) PO AC & HS 01/18/2018 01/20/2018 Inactive Carafate 1 gram tablet RxNorm: 199441 1 Tablet(s) PO AC & HS 01/18/2018 02/27/2018 Inactive Carafate 1 gram tablet RxNorm: 046014 1 Tablet(s) PO AC & HS TAKE ONE TABLET B Y MOUTH TWICE DAILY 01/18/2018 05/17/2018 Inactive Generic For:CARAFATE 1GM 0 12/20/2017 9:10:56 AM omeprazole 20 mg cap sean,delayed release RxNorm: 341522 Capsule(s) TAKE 1 CAP SEAN BY MOUTH EVERY DAY 01/17/2018 01/20/2018 Inactive Generic For:PRILOSEC 20MG 0 07/22/2017 8:58:20 AM omeprazole 20 mg cap esan,delayed release RxNorm: 324936 Capsule(s) TAKE 1 CAP SEAN BY MOUTH EVERY DAY 01/14/2018 01/16/2018 Inactive Generic For:PRILOSEC 20MG 07/22/2017 8:58:20 AM clonazepam 0.5 mg ta blet RxNorm: 067706 1 Tablet(s) PO BID 01/07/2018 06/05/2018 Inactive Plavix 75 mg tablet RxNorm: 872687 1 Tablet(s) PO daily 01/07/2018 07/05/2018 Inactive Carafate 1 gram tablet RxNorm: 376525 1 Tablet(s) PO AC & HS 01/04/2018 01/17/2018 Inactive Lasix 20 mg tablet RxNorm: 673864 TAKE ONE TABLET BY MOUTH DAILY 12/20/2017 04/17/2018 In active Generic For:LASIX 20MG 12/20/2017 9:11: 03 AM sodium bicarbonate 6 50 mg tablet RxNorm: 846857 TAKE 2 TABLETS BY JAVON TH TWICE DAILY 12/20/2017 06/17/2018 In active 12/20/2017 9:10:59 AM Carafate 1 gram tablet RxNorm: 370766 TAKE ONE TABLET BY MOUTH TWICE DAILY 12/20/2017 01/17/2018 In active Generic For:CARAFATE 1GM 12/20/2017 9:1 0:56 AM Synthroid 137 mcg ta blet RxNorm: 622368 TAKE 1 TABLET BY MOUT H ONCE DAILY 11/19/2017 05/17/2018 In active Generic For:SYNTHROID 137MCG TAB 2017 8:58:04 AM Detrol LA 4 mg capsu le,extended release RxNorm: 333944 TAKE 1 CAPSULE BY JAVON TH ONCE DAILY 10/20/2017 04/13/2018 Inactive Generic For:DETROL LA 4MG C AP 10/20/2017 9:01:56 AM allopurinol 300 mg t ablet RxNorm: 857920 TAKE 1 TABLET BY MOUT H ONCE DAILY. 10/20/2017 04/17/2018 In active Generic For:ZYLOPRIM 300 MG TABLET 07/2017 9:01:59 AM Coumadin 5 mg tablet RxNorm: 424479 1 Tablet(s) PO UD 10/01/2017 03/20/2018 Inactive cyclobenzaprine 5 mg tablet RxNorm: 851608 1 Tablet(s) PO TID as needed myscle spasm 09/23/2017 10/12/2017 Inactive Lipitor 40 mg tablet RxNorm: 648515 TAKE 1 TABLET BY MOUTH ONCE DAILY 09/20/2017 07/28/2018 In active Generic For:LIPITOR 40MG 09/20/2017 8:5 6:04 AM atenolol 100 mg tablet RxNorm: 642901 1 Tablet(s) PO daily 08/30/2017 02/03/2018 Inactive atenolol 50 mg tablet RxNorm: 751281 1 Tablet(s) PO daily 08/30/2017 08/30/2017 Inactive Lovenox 30 mg/0.3 mL subcutaneous syringe RxNorm: 032720 0.3 Milliliter(s) SQ Q12H 08/24/2017 09/06/2017 In active Lasix 20 mg tablet RxNorm: 399398 TAKE ONE TABLET BY MOUTH DAILY 08/23/2017 12/19/2017 In active Generic For:LASIX 20MG 08/21/2017 9:04: 27 AM Synthroid 137 mcg ta blet RxNorm: 365014 TAKE 1 TABLET BY MOUT H ONCE DAILY 08/23/2017 11/18/2017 In active Generic For:SYNTHROID 137MCG TAB 2017 9:04:30 AM Lovenox 30 mg/0.3 mL subcutaneous syringe RxNorm: 816086 0.3 Milliliter(s) SQ Q12H 08/10/2017 08/23/2017 In active clonazepam 0.5 mg ta blet RxNorm: 634793 1 Tablet(s) PO BID 08/04/2017 12/30/2017 Inactive omeprazole 20 mg cap sean,delayed release RxNorm: 546058 TAKE 1 CAPSULE BY JAVON TH EVERY DAY 07/22/2017 01/13/2018 Inactive Generic For:PRILOSEC 20MG 07/22/2017 8: 58:20 AM Coumadin 4 mg tablet RxNorm: 831832 TAKE 1 TABLET BY MOUTH THREE TIMES PER W KASAAN (WEDNESDAY, WEDNESDAY AND WEDNESDAY) 07/22/2017 10/03/2018 Inactive Generic For:COUMADIN 4MG 07/22/2017 8:58:26 AM Coumadin 4 mg tablet RxNorm: 552253 TAKE 1 TABLET BY MOUTH THREE TIMES PER W KASAAN (WEDNESDAY, WEDNESDAY AND WEDNESDAY) 07/22/2017 02/16/2018 Inactive Generic For:COUMADIN 4MG 07/22/2017 8:58:26 AM sodium bicarbonate 6 50 mg tablet RxNorm: 216819 TAKE 2 TABLETS BY JAVON TH TWICE DAILY 06/22/2017 12/18/2017 In active 06/19/2017 12:23:30 PM venlafaxine ER 75 mg capsule,extended release 24 hr RxNorm: 034476 TAKE 1 CAPSULE BY MOUTH ONCE DAILY 06/22/2017 06/16/2018 Inactive Generic For:*EFFEXOR XR 75M G 06/19/2017 12:23:45 PM Coumadin 5 mg tablet RxNorm: 755723 1 Tablet(s) PO UD 06/01/2017 09/30/2017 Inactive Keflex 500 mg capsule RxNorm: 824216 1 Capsule(s) PO TID 05/27/2017 06/02/2017 Inactive Synthroid 137 mcg ta blet RxNorm: 359646 TAKE 1 TABLET BY MOUT H ONCE DAILY 05/24/2017 08/21/2017 In active Generic For:SYNTHROID 137MCG TAB 2016 8:55:59 AM Carafate 1 gram tablet RxNorm: 894773 TAKE ONE TABLET BY MOUTH TWICE DAILY 05/24/2017 12/19/2017 In active Generic For:CARAFATE 1GM 05/24/2017 8:5 5:54 AM spironolactone 25 mg tablet RxNorm: 958487 1 Tablet(s) PO daily 05/24/2017 05/17/2018 Inactive Detrol LA 4 mg capsu le,extended release RxNorm: 581941 1 Capsule(s) PO daily TAKE 1 CAPSULE BY MOUTH ONCE DAILY 05/10/2017 10/19/2017 Inactive Generic For:DETROL LA 4MG CAP 02/19/2017 2:36:00 PM Lasix 20 mg tablet RxNorm: 152299 TAKE ONE TABLET BY MOUTH DAILY 04/23/2017 08/20/2017 In active Generic For:LASIX 20MG 04/23/2017 9:04: 01 AM Coumadin 4 mg tablet RxNorm: 206642 TAKE 1 TABLET BY MOUTH THREE TIMES PER W KASAAN (WEDNESDAY, WEDNESDAY AND WEDNESDAY) 04/23/2017 07/21/2017 Inactive Generic For:COUMADIN 4MG 04/23/2017 9:04:05 AM allopurinol 300 mg t ablet RxNorm: 324554 TAKE 1 TABLET BY MOUT H ONCE DAILY. 04/23/2017 10/19/2017 In active Generic For:ZYLOPRIM 300 MG TABLET 08/2016 9:03:57 AM potassium chloride 2 0 mEq/15 mL oral liquid RxNorm: 330097 Milliliter(s) 30 Milliliter(s) (40mEq) PO daily 03/24/2017 07/21/2017 Inactive Lovenox 30 mg/0.3 mL subcutaneous syringe RxNorm: 761885 0.3 Milliliter(s) SQ Q12H 03/22/2017 03/26/2017 In active Lovenox 30 mg/0.3 mL subcutaneous syringe RxNorm: 751678 0.3 Milliliter(s) SQ Q12H 03/19/2017 03/20/2017 In active Lovenox 30 mg/0.3 mL subcutaneous syringe RxNorm: 660479 0.3 Milliliter(s) SQ Q12H 03/16/2017 03/18/2017 In active clonazepam 0.5 mg ta blet RxNorm: 139851 1 Tablet(s) PO BID 03/02/2017 10/03/2018 Inactive Lovenox 30 mg/0.3 mL subcutaneous syringe RxNorm: 025391 1 injection SQ BID do NOT take the night time dose the day before surgery, or the morning dose the day of surgery 03/01/2017 03/07/2017 Inactive Lovenox 30 mg/0.3 mL subcutaneous syringe RxNorm: 482274 1 injection SQ BID 03/01/2017 02/28/2017 In active Detrol LA 4 mg capsu le,extended release RxNorm: 303053 TAKE 1 CAPSULE BY JAVON TH ONCE DAILY 02/19/2017 05/09/2017 Inactive Generic For:DETROL LA 4MG C AP 02/19/2017 2:36:00 PM hydrocodone 5 mg-humberto taminophen 325 mg tablet RxNorm: 228736 1-2 Tablet(s) PO Q6 P RN 02/04/2017 No Stop Date Active Zetia 10 mg tablet RxNorm: 439966 TAKE 1 TABLET BY MOUTH DAILY 01/25/2017 04/13/2018 Inactive 01/23/2017 9:03:48 AM omeprazole 20 mg cap sean,delayed release RxNorm: 350646 TAKE 1 CAPSULE BY JAVON TH EVERY DAY 01/25/2017 07/21/2017 Inactive Generic For:PRILOSEC 20MG 01/23/2017 9: 03:45 AM Coumadin 4 mg tablet RxNorm: 179483 TAKE 1 TABLET BY MOUTH THREE TIMES PER W KASAAN (WEDNESDAY, WEDNESDAY AND WEDNESDAY) 01/25/2017 04/22/2017 Inactive Generic For:COUMADIN 4MG 01/23/2017 9:03:51 AM sodium bicarbonate 6 50 mg tablet RxNorm: 338358 TAKE 2 TABLETS BY JAVON TH TWICE DAILY 12/24/2016 06/21/2017 In active 12/24/2016 9:09:27 AM Lasix 20 mg tablet RxNorm: 291339 1 Tablet(s) PO daily 12/24/2016 04/22/2017 Inactive Synthroid 137 mcg ta blet RxNorm: 611425 TAKE 1 TABLET BY MOUT H ONCE DAILY 11/24/2016 05/22/2017 In active Generic For:SYNTHROID 137MCG TAB 2016 9:04:37 AM Coumadin 4 mg tablet RxNorm: 726978 TAKE 1 TABLET BY MOUTH THREE TIMES PER W KASAAN (WEDNESDAY, WEDNESDAY AND WEDNESDAY) 11/24/2016 01/22/2017 Inactive Generic For:COUMADIN 4MG 11/24/2016 9:04:41 AM hydrocodone 5 mg-humberto taminophen 325 mg tablet RxNorm: 885013 1-2 Tablet(s) PO Q6 P RN 11/17/2016 02/03/2017 In active Carafate 1 gram tablet RxNorm: 224200 TAKE ONE TABLET BY MOUTH TWICE DAILY 10/27/2016 05/23/2017 In active Generic For:CARAFATE 1GM 10/26/2016 8:3 9:42 AM allopurinol 300 mg t ablet RxNorm: 175072 Tablet(s) TAKE 1 TABL ET BY MOUTH ONCE DAILY. 10/26/2016 04/22/2017 Inactive Lipitor 40 mg tablet RxNorm: 135117 1 Tablet(s) PO daily 09/25/2016 09/19/2017 Inactive Coumadin 4 mg tablet RxNorm: 692567 TAKE 1 TABLET BY MOUTH THREE TIMES PER W KASAAN (WEDNESDAY, WEDNESDAY AND WEDNESDAY) 09/25/2016 11/23/2016 Inactive Generic For:COUMADIN 4MG 09/25/2016 8:55:58 AM Zetia 10 mg tablet RxNorm: 673469 1 Tablet(s) PO daily 09/25/2016 01/22/2017 Inactive gave 1 month of samples clonazepam 0.5 mg ta blet RxNorm: 056292 1 Tablet(s) PO BID 09/21/2016 10/03/2018 Inactive Lasix 20 mg tablet RxNorm: 1 Tablet(s) PO daily 09/15/2016 12/23/2016 Inactive potassium chloride 2 0 mEq/15 mL oral liquid RxNorm: 001202 Milliliter(s) 30 Milliliter(s) (40mEq) PO daily 09/15/2016 01/12/2017 Inactive Lasix 20 mg tablet RxNorm: 2 Tablet(s) PO daily 09/10/2016 09/12/2016 Inactive Lasix 20 mg tablet RxNorm: 1 Tablet(s) PO daily 08/28/2016 08/30/2016 Inactive Lasix 20 mg tablet RxNorm: 1 Tablet(s) PO daily 08/20/2016 08/22/2016 Inactive Detrol LA 4 mg capsu le,extended release RxNorm: 703952 TAKE 1 CAPSULE BY JAVON TH ONCE DAILY 07/27/2016 02/18/2017 Inactive Generic For:DETROL LA 4MG C AP 07/27/2016 9:08:27 AM Coumadin 4 mg tablet RxNorm: 652556 1 Tablet(s) PO 3 x week e and sun 07/27/2016 09/24/2016 In active omeprazole 20 mg cap sean,delayed release RxNorm: 666579 Capsule(s) PO TAKE 1 CAPSULE BY MOUTH ONCE DAILY 07/27/2016 01/22/2017 Inactive venlafaxine ER 75 mg capsule,extended release 24 hr RxNorm: 688827 1 Capsule(s) PO daily 06/29/2016 06/21/2017 Inactive sodium bicarbonate 6 50 mg tablet RxNorm: 857386 TAKE 2 TABLETS BY [facility] TWICE DAILY 06/29/2016 12/23/2016 In active 06/27/2016 9:05:39 AM Coumadin 4 mg tablet RxNorm: 681965 1 Tablet(s) PO 3 x week [facility] and sun 06/09/2016 06/08/2016 In active Coumadin 4 mg tablet RxNorm: 195406 1 Tablet(s) PO 3 x week [facility] and sun 06/09/2016 07/26/2016 In active Zetia 10 mg tablet RxNorm: 612270 1 Tablet(s) PO daily 06/09/2016 06/08/2016 Inactive gave 1 month of samples Zetia 10 mg tablet RxNorm: 975332 1 Tablet(s) PO daily 06/09/2016 09/24/2016 Inactive gave 1 month of samples Effexor 75 mg tablet RxNorm: 861243 1 Tablet(s) PO daily 06/08/2016 06/28/2016 Inactive spironolactone 25 mg tablet RxNorm: 035713 1 Tablet(s) PO daily 06/08/2016 05/23/2017 Inactive Synthroid 137 mcg ta blet RxNorm: 722200 1 Tablet(s) PO daily 05/07/2016 11/02/2016 Inactive allopurinol 300 mg t ablet RxNorm: 193755 Tablet(s) TAKE 1 TABL ET BY MOUTH ONCE DAILY. 04/28/2016 10/24/2016 Inactive clonazepam 0.5 mg ta blet RxNorm: 005818 1 Tablet(s) PO BID 04/20/2016 10/03/2018 Inactive Flonase Allergy Reli ef 50 mcg/actuation nasal spray,suspension RxNorm: 2801805 1 [place] NASAL BID 04/02/2016 No Stop Date Active Zithromax Z-Thomas 250 mg tablet RxNorm: 727336 Tablet(s) PO 04/02/2016 08/27/2016 Inactive cetirizine 10 mg tablet RxNorm: 1848735 1 Tablet(s) PO daily 04/02/2016 05/01/2016 Inactive Carafate 1 gram tablet RxNorm: 433594 Tablet(s) TAKE 1 TABLET TWICE A DAY FOR 30 DAYS 03/30/2016 10/25/2016 Inactive Generic For:CARAFATE 1GM 02/08/2015 12:3 6:39 PM Plavix 75 mg tablet RxNorm: 069049 1 Tablet(s) PO daily 03/11/2016 09/06/2016 Inactive sodium bicarbonate 6 50 mg tablet RxNorm: 247576 Tablet(s) 2 Tablet(s) PO BID 02/28/2016 06/26/2016 In active omeprazole 20 mg cap sean,delayed release RxNorm: 521842 Capsule(s) PO TAKE 1 CAPSULE BY MOUTH ONCE DAILY 01/31/2016 07/26/2016 Inactive Fish Oil 1,000 mg ca psule RxNorm: 1 Capsule(s) PO BID 01/14/2016 No Stop Date Active Synthroid 137 mcg ta blet RxNorm: 915914 1 Tablet(s) PO daily 01/14/2016 05/06/2016 Inactive Detrol LA 4 mg capsu le,extended release RxNorm: 799137 TAKE 1 CAPSULE BY JAVON TH ONCE DAILY 12/30/2015 07/26/2016 Inactive Generic For:DETROL LA 4MG C AP 12/30/2015 9:11:01 AM potassium chloride 2 0 mEq/15 mL oral liquid RxNorm: 327683 Milliliter(s) 30 Milliliter(s) (40mEq) PO daily 12/02/2015 03/30/2016 Inactive sodium bicarbonate 6 50 mg tablet RxNorm: 757230 Tablet(s) 2 Tablet(s) PO BID 10/31/2015 02/27/2016 In active Lipitor 40 mg tablet RxNorm: 093491 1 Tablet(s) PO daily 10/09/2015 09/24/2016 Inactive sodium bicarbonate 6 50 mg tablet RxNorm: 621574 2 Tablet(s) PO BID 10/01/2015 10/30/2015 Inactive allopurinol 300 mg t ablet RxNorm: 093759 TAKE 1 TABLET BY MOUT H ONCE DAILY. 10/01/2015 04/27/2016 In active Generic For:ZYLOPRIM 300 MG TABLET 09/19 9:21:15 AM clonazepam 0.5 mg ta blet RxNorm: 202744 1 Tablet(s) PO BID 09/30/2015 04/19/2016 Inactive Coumadin 5 mg tablet RxNorm: 187781 1 Tablet(s) PO daily 09/27/2015 05/31/2017 Inactive Generic For:COUMADIN 5MG TAB N O T I C E PRESCRIPTION PREVIOUSLY AUTHORIZED BY DOCTOR:BOBBY ZULETA Synthroid 125 mcg ta blet RxNorm: 839585 1 Tablet(s) PO daily 09/27/2015 09/26/2015 Inactive Synthroid 125 mcg ta blet RxNorm: 892135 1 Tablet(s) PO daily 09/27/2015 01/13/2016 Inactive Carafate 1 gram tablet RxNorm: 409344 Tablet(s) TAKE 1 TABLET TWICE A DAY FOR 30 DAYS 09/02/2015 03/29/2016 Inactive Generic For:CARAFATE 1GM 02/08/2015 12:3 6:39 PM sodium bicarbonate 6 50 mg tablet RxNorm: 847085 2 Tablet(s) PO BID 09/02/2015 09/30/2015 Inactive Prilosec 20 mg capsu le,delayed release RxNorm: 667460 TAKE 1 CAPSULE BY JAVON TH ONCE DAILY 08/02/2015 01/28/2016 Inactive Generic For:PRILOSEC 20MG 08/02/2015 10:03:09 AM N O T I C E PRESCRIPTION PREVIOUSLY AUTHORIZED BY DOCTOR:BOBBY ZULETA Zyrtec 10 mg capsule RxNorm: 6408610 1 Capsule(s) PO daily 07/15/2015 08/13/2015 Inactive Keflex 500 mg capsule RxNorm: 210728 1 Capsule(s) PO TID 07/15/2015 07/21/2015 Inactive cetirizine 10 mg cap sean RxNorm: 5767604 1 Capsule(s) PO daily 07/15/2015 08/13/2015 Inactive hydrocodone 5 mg-humberto taminophen 325 mg tablet RxNorm: 055642 1-2 Tablet(s) PO Q6 P RN 06/10/2015 11/16/2016 In active sodium bicarbonate 6 50 mg tablet RxNorm: 646616 2 Tablet(s) PO BID 06/03/2015 08/31/2015 Inactive Detrol LA 4 mg capsu le,extended release RxNorm: 458505 TAKE 1 CAPSULE BY JAVON TH ONCE DAILY 06/03/2015 12/29/2015 Inactive Generic For:DETROL LA 4MG C AP N O T I C E PRESCRIPTION PREVIOUSLY AUTHORIZED BY DOCTOR:BOBBY ZULETA atenolol 50 mg tablet RxNorm: 015281 1 Tablet(s) PO daily TAKE 1 TABLET BY MO UTH DAILY 05/07/2015 08/23/2017 Inactive Generic For:TENORMIN 50MG 05/04/2015 9:07:22 AM spironolactone 25 mg tablet RxNorm: 551097 1 Tablet(s) PO daily 05/06/2015 06/07/2016 Inactive venlafaxine ER 75 mg capsule,extended release 24 hr RxNorm: 339560 1 Capsule(s) PO daily 05/04/2015 06/28/2016 Inactive atenolol 50 mg tablet RxNorm: 708269 TAKE 1 TABLET BY MOUTH DAILY 05/04/2015 05/06/2015 Inactive Generic For:TENORMIN 50MG 05/04/2015 9: 07:22 AM Synthroid 150 mcg ta blet RxNorm: 066588 TAKE 1 TABLET BY MOUT H ONCE DAILY. 04/05/2015 09/26/2015 In active Generic For:SYNTHROID 150MCG TAB 2014 4:45:40 PM N O T I C E PRESCRIPTION PREVIOUSLY AUTHORIZED BY DOCTOR:BOBBY ZULETA Effexor 75 mg tablet RxNorm: 991203 1 Tablet(s) PO daily 04/05/2015 07/03/2015 Inactive Coumadin 5 mg tablet RxNorm: 944979 TAKE 1 AND 1/2 TABLETS BY MOUTH ONCE MYRANDA LY 04/04/2015 09/26/2015 In active Generic For:COUMADIN 5MG TAB N O T I C E PRESCRIPTION PREVIOUSLY AUTHORIZED BY DOCTOR:BOBBY ZULETA clonazepam 0.5 mg ta blet RxNorm: 274873 1 Tablet(s) PO BID 03/13/2015 11/05/2015 Inactive sodium bicarbonate 6 50 mg tablet RxNorm: 640918 2 Tablet(s) PO BID 03/08/2015 06/02/2015 Inactive allopurinol 300 mg t ablet RxNorm: 392235 TAKE 1 TABLET BY MOUT H ONCE DAILY. 03/05/2015 09/30/2015 In active N O T I C E PRESCRIPTION PREVIOUSLY A UTHORIZED BY DOCTOR:BOBBY ZULETA Plavix 75 mg tablet RxNorm: 608816 1 Tablet(s) PO daily 02/12/2015 09/09/2015 Inactive clonazepam 0.5 mg ta blet RxNorm: 432379 1 Tablet(s) PO BID 02/11/2015 03/11/2015 Inactive Carafate 1 gram tablet RxNorm: 640094 TAKE 1 TABLET TWICE A DAY FOR 30 DAYS 02/08/2015 02/07/2015 In active Generic For:CARAFATE 1GM 02/08/2015 12:3 6:39 PM Carafate 1 gram tablet RxNorm: 190416 Tablet(s) TAKE 1 TABLET TWICE A DAY FOR 30 DAYS 02/08/2015 09/01/2015 Inactive Generic For:CARAFATE 1GM 02/08/2015 12:3 6:39 PM potassium chloride 2 0 mEq/15 mL oral liquid RxNorm: 358199 30 Milliliter(s) (40m Eq) PO daily 02/05/2015 12/01/2015 Inactive atenolol 50 mg tablet RxNorm: 223660 1 Tablet(s) PO daily 02/04/2015 05/03/2015 Inactive [SAVINGS FOR NON-COVERED DRUGS -- BIN:00 [id number], PCN: [email or web address], Group: XXXXX, ID# [id number], Questions: . THIS IS NOT INSURANCE.] potassium chloride 2 0 mEq/15 mL oral liquid RxNorm: 903144 30 Milliliter(s) (40m Eq) PO daily 01/08/2015 02/04/2015 Inactive potassium chloride 2 0 mEq/15 mL oral liquid RxNorm: 435827 30 Milliliter(s) (40m Eq) PO daily 12/07/2014 01/07/2015 Inactive atenolol 50 mg tablet RxNorm: 100659 1 Tablet(s) PO daily 11/09/2014 11/08/2014 Inactive atenolol 50 mg tablet RxNorm: 321137 1 Tablet(s) PO daily 11/09/2014 02/03/2015 Inactive [SAVINGS FOR NON-COVERED DRUGS -- BIN:[id number], PCN: [id number], Group: [id number], ID# [id number], Questions: . THIS IS NOT INSURANCE.] Voltaren 1 % topical gel RxNorm: 173268 TOP No St art Date Active verapamil ER (HS) 24 0 mg tablet,extended release 24 hr RxNorm: 843780 1 Tablet(s) PO daily No Start Date Active aspirin 81 mg tablet RxNorm: 353434 1 Tablet(s) PO daily No Start Date Active Zofran 4 mg tablet RxNorm: 090349 1 Tablet(s) PO PRN No Start Date Active B12 1000 mcg RxNorm: 1 Tablet(s) PO daily No Start Date Active magnesium oxide 400 mg capsule RxNorm: 514690 2 Capsule(s) PO BID No Start Date Active Synthroid 150 mcg ta blet RxNorm: 639031 1 Tablet(s) PO daily No Start Date 04/04/2015 Inactive Coumadin 5 mg tablet RxNorm: 160728 1 Tablet(s) PO daily No Start Date 04/03/2015 Inactive cranberry 1,000 mg c apsule RxNorm: 631641 1 Capsule(s) PO daily No Start Date 04/13/2018 Inactive allopurinol 300 mg t ablet RxNorm: 090189 1 Tablet(s) PO daily No Start Date 03/04/2015 Inactive Prilosec 20 mg capsu le,delayed release RxNorm: 310832 1 Capsule(s) PO PRN No Start Date 08/01/2015 Inactive potassium chloride 2 0 mEq/15 mL oral liquid RxNorm: 716652 30 Milliliter(s) (40m Eq) PO daily No Start Date 12/06/2014 Inactive atenolol 50 mg tablet RxNorm: 284598 1 Tablet(s) PO daily No Start Date 08/29/2017 Inactive Lipitor 40 mg tablet RxNorm: 027643 1 Tablet(s) PO daily No Start Date 09/19/2017 Inactive Effexor 75 mg tablet RxNorm: 668484 1 Tablet(s) PO daily No Start Date 04/04/2015 Inactive Carafate 1 gram tablet RxNorm: 073581 1 Tablet(s) PO BID No Start Date 02/07/2015 Inactive clonazepam 0.5 mg ta blet RxNorm: 382346 1 Tablet(s) PO BID No Start Date 02/10/2015 Inactive Plavix 75 mg tablet RxNorm: 249315 1 Tablet(s) PO daily No Start Date 02/11/2015 Inactive sodium bicarbonate 6 50 mg tablet RxNorm: 701921 2 Tablet(s) PO BID No Start Date 09/01/2015 Inactive Lovenox 30 mg/0.3 mL subcutaneous syringe RxNorm: 654336 0.3 Milliliter(s) SQ Q12H No Start Date 03/15/2017 Inactive Fish Oil 1,000 mg ca psule RxNorm: 1 Capsule(s) PO daily No Start Date 01/13/2016 Inactive Detrol LA 4 mg capsu le,extended release RxNorm: 837462 1 Capsule(s) PO daily No Start Date 06/02/2015 Inactive Medication Administered Medication Codes Instruc tions Start Date Status Kenalog 40 mg/mL suspension for injection RxNorm: 4579160 Milliliter 09/02/2018 No longer Active Immunizations Vaccine Codes Date Status SHINGARIX CVX: 121 03/23 completed Assessments Condition Codes Effectiv e Dates Mixed hyperlipidemia ICD-10: E78.2 ICD-9: 272.4 10/05/2018 Other acute sinusitis ICD-10: J01.80 ICD-9: 461.8 09/02/2018 Other allergic rhinitis ICD-10: J30. 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 [...] fatigue ICD-10: R53.83 ICD-9: 780.79 08/20/2016 Other group home (current) drug therapy ICD-10: Z79.899 ICD-9: V58.69 [...] Code Item Item Code Result Date Pt Hgw6524 PT 27.4 seconds 01/27/2019 Pt Vmu5944 INR 2.6 01/27/2019 Pt Nrz4118 Low Intensity - 1.5-2.0 01/27/2019 Pt Dxg4909 Mod intensity - 2.0-3.0 01/27/2019 Pt Xep7774 Hi intensity - 3.0-4.0 01/27/2019 Pt Ijd4862 PT 21.8 seconds 12/15/2018 Pt Cvs2901 INR 2.0 12/15/2018 Pt Qyf9569 Low Intensity - 1.5-2.0 12/15/2018 Pt Elu3679 Mod intensity - 2.0-3.0 12/15/2018 Pt Ukg2572 Hi intensity - 3.0-4.0 12/15/2018 Pt Sbt3255 PT 24.4 seconds 12/09/2018 Pt Vxh3640 INR 2.2 12/09/2018 Pt Atk4420 Low Intensity - 1.5-2.0 12/09/2018 Pt Zjm4146 Mod intensity - 2.0-3.0 12/09/2018 Pt Nnn3992 Hi intensity - 3.0-4.0 12/09/2018 Pt Cqa8248 PT 35.0 seconds 12/01/2018 Pt Yzd6585 INR 3.5 12/01/2018 Pt Ebo7136 Low Intensity - 1.5-2.0 12/01/2018 Pt Mxr4974 Mod intensity - 2.0-3.0 12/01/2018 Pt Qvu5124 Hi intensity - 3.0-4.0 12/01/2018 Pt Ljj1291 PT 26.3 seconds 10/13/2018 Pt Qpj6098 INR 2.5 10/13/2018 Pt Gvq0613 Low Intensity - 1.5-2.0 10/13/2018 Pt Att8439 Mod intensity - 2.0-3.0 10/13/2018 Pt Kox4300 Hi intensity - 3.0-4.0 10/13/2018 Lipid Ord30 CHOL 180 mg/dL 10/07/2018 Lipid Ord30 HDL 74.0 mg/dl 10/07/2018 Lipid Ord30 TRIG 111 mg/dL 10/07/2018 Lipid Ord30 LDL 84 mg/dL 10/07/2018 Lipid Ord30 C/HDL 2.4 Ratio 10/07/2018 Pt Eqm3664 PT 38.1 seconds 10/07/2018 Pt Rmt2801 INR 3.9 10/07/2018 Pt Xhb4868 Low Intensity - 1.5-2.0 10/07/2018 Pt Ofw2294 Mod intensity - 2.0-3.0 10/07/2018 Pt Bgv2609 Hi intensity - 3.0-4.0 10/07/2018 Tsh Ord6 TSH (3rd IS) 0.43 uIU/mL 09/02/2018 Comp Metabolic Cev895 NA 136 mEq/L 09/02/2018 Comp Metabolic Tqj597 K 4.1 mEq/L 09/02/2018 Comp Metabolic Ofz740 CL 103 mEq/L 09/02/2018 Comp Metabolic Kzq256 CO2 20.0 mEq/L 09/02/2018 Comp Metabolic Mkc696 AN ION GAP 17 09/02/2018 Comp Metabolic Wug050 GL UCOSE 124 mg/dL 09/02/2018 Comp Metabolic Hln324 Cr eat 1.0 mg/dL 09/02/2018 Comp Metabolic Jfr859 eG FR 57 ml/min/1.73m2 09/02 Comp Metabolic Xqe664 BUN 24 mg/dL 09/02/2018 Comp Metabolic Who380 B/ C Ratio 23.8 Ratio 09/02/2018 Comp Metabolic Esm231 CA LCIUM 9.5 mg/dL 09/02/2018 Comp Metabolic Voo502 AL K PHOS 64 U/L 09/02/2018 Comp Metabolic Efl040 T(SGOT) 24 U/L 09/02/2018 Comp Metabolic Jnz761 AL T(SGPT) 23 U/L 09/02/2018 Comp Metabolic Tnw358 BI LI T 0.5 mg/dL 09/02/2018 Comp Metabolic Usa894 AL BUMIN 4.2 g/dL 09/02/2018 Comp Metabolic Ajb146 TP RO 7.4 g/dL 09/02/2018 Comp Metabolic Hqh266 GL OB 3.2 g/dL 09/02/2018 Comp Metabolic Vxg266 A/ G Ratio 1.3 Ratio 09/02/2018 Comp Metabolic Mdj419 Os mo 277 mOsmo 09/02/2018 Pt Usf3205 PT 40.6 seconds 09/02/2018 Pt Fuo1320 INR 4.2 09/02/2018 Pt Vid5527 Low Intensity - 1.5-2.0 09/02/2018 Pt Zus3952 Mod intensity - 2.0-3.0 09/02/2018 Pt Aww1694 Hi intensity - 3.0-4.0 09/02/2018 Free T4 Rtp537 FREE T4 1.51 ng/dL 09/02/2018 Magnesium Ord90 Mag 1.8 mg/dL 09/02/2018 Pt Jue0674 PT 29.2 seconds 08/05/2018 Pt Hew0660 INR 2.8 08/05/2018 Pt Dcw3015 Low Intensity - 1.5-2.0 08/05/2018 Pt Kfi0349 Mod intensity - 2.0-3.0 08/05/2018 Pt Hqb9085 Hi intensity - 3.0-4.0 08/05/2018 Pt Rhz7555 PT 30.2 seconds 07/25/2018 Pt Bxg4389 INR 2.9 07/25/2018 Pt Ibp6443 Low Intensity - 1.5-2.0 07/25/2018 Pt Ubg4294 Mod intensity - 2.0-3.0 07/25/2018 Pt Jea6743 Hi intensity - 3.0-4.0 07/25/2018 Pt Rbw8008 PT 25.2 seconds 07/19/2018 Pt Tbs2795 INR 2.3 07/19/2018 Pt Edz1983 Low Intensity - 1.5-2.0 07/19/2018 Pt Nzz9799 Mod intensity - 2.0-3.0 07/19/2018 Pt Ibu2704 Hi intensity - 3.0-4.0 07/19/2018 Pt Vym0256 PT 17.4 seconds 07/15/2018 Pt Gid2802 INR 1.5 07/15/2018 Pt Des4981 Low Intensity - 1.5-2.0 07/15/2018 Pt Uvf1260 Mod intensity - 2.0-3.0 07/15/2018 Pt Uil6672 Hi intensity - 3.0-4.0 07/15/2018 Pt Xme3268 PT 17.8 seconds 07/08/2018 Pt Dru7089 INR 1.5 07/08/2018 Pt Apv4284 Low Intensity - 1.5-2.0 07/08/2018 Pt Vew2444 Mod intensity - 2.0-3.0 07/08/2018 Pt Oqh9868 Hi intensity - 3.0-4.0 07/08/2018 Pt Cug2840 PT 19.2 seconds 07/01/2018 Pt Knz2184 INR 1.7 07/01/2018 Pt Rxa7387 Low Intensity - 1.5-2.0 07/01/2018 Pt Ztw6243 Mod intensity - 2.0-3.0 07/01/2018 Pt Grf0050 Hi intensity - 3.0-4.0 07/01/2018 Pt Ejj4689 PT 17.4 seconds 06/23/2018 Pt Lef4120 INR 1.5 06/23/2018 Pt Mfj1324 Low Intensity - 1.5-2.0 06/23/2018 Pt Ozm6485 Mod intensity - 2.0-3.0 06/23/2018 Pt Lot8791 Hi intensity - 3.0-4.0 06/23/2018 Pt Noa1045 PT 18.4 seconds 06/17/2018 Pt Veb4390 INR 1.6 06/17/2018 Pt Rqa2594 Low Intensity - 1.5-2.0 06/17/2018 Pt Otg0840 Mod intensity - 2.0-3.0 06/17/2018 Pt Bpr3976 Hi intensity - 3.0-4.0 06/17/2018 Sed Rate [...] 30.4 pg 06/08/2018 Cbc With Differential Ord2 [place]% 9.4 % 06/08/2018 Cbc With Differential Ord2 [...] 1.20 K/ul 06/08/2018 Cbc With Differential Ord2 [place] ABS# 0.5 K/ul 06/08/2018 Cbc With Differential Ord2 Eos ABS# 0.1 K/ul 06/08/2018 Cbc With Differential Ord2 Baso ABS# 0.1 K/ul 06/08/2018 C-Reactive Protein Qnt Crqnt CRP 0.1 mg/dl 06/08/2018 Pt Edf3555 PT 17.6 seconds 06/08/2018 Pt Nrj1181 INR 1.5 06/08/2018 Pt Bnx0304 Low Intensity - 1.5-2.0 06/08/2018 Pt Qvy6144 Mod intensity - 2.0-3.0 06/08/2018 Pt Tyt4901 Hi intensity - 3.0-4.0 06/08/2018 Pt Npt7184 PT 16.8 seconds 05/10/2018 Pt Sav3179 INR 1.4 05/10/2018 Pt Dmv9063 Low Intensity - 1.5-2.0 05/10/2018 Pt Wri7814 Mod intensity - 2.0-3.0 05/10/2018 Pt Oee2500 Hi intensity - 3.0-4.0 05/10/2018 Pt Hmo5372 PT 16.7 seconds 05/04/2018 Pt Fpl5227 INR 1.4 05/04/2018 Pt Ewx5624 Low Intensity - 1.5-2.0 05/04/2018 Pt Zrv9221 Mod intensity - 2.0-3.0 05/04/2018 Pt Fmk5145 Hi intensity - 3.0-4.0 05/04/2018 Free T4 Blk067 FREE T4 1.09 ng/dL 04/14/2018 Tsh Ord6 TSH (3rd IS) 2.36 uIU/mL 04/14/2018 Pt Gej9042 PT 20.3 seconds 04/14/2018 Pt Jky3493 INR 1.8 04/14/2018 Pt Hrw5538 Low Intensity - 1.5-2.0 04/14/2018 Pt Yox0895 Mod intensity - 2.0-3.0 04/14/2018 Pt Kle6905 Hi intensity - 3.0-4.0 04/14/2018 Lipid Ord30 CHOL 149 mg/dL 04/14/2018 Lipid Ord30 HDL 49.0 mg/dl 04/14/2018 Lipid Ord30 TRIG 161 mg/dL 04/14/2018 Lipid Ord30 LDL 68 mg/dL 04/14/2018 Lipid Ord30 C/HDL 3.0 Ratio 04/14/2018 %Hba1C Imz096 % HbA1c 42516-7 5.9 % 04/14/2018 %Hba1C Nvp109 Gluc Ave 123 mg/dL 04/14/2018 Comp Metabolic Cfn528 NA 140 mEq/L 04/14/2018 Comp Metabolic Iza285 K 4.1 mEq/L 04/14/2018 Comp Metabolic Krs236 CL 105 mEq/L 04/14/2018 Comp Metabolic Lws220 CO2 28.0 mEq/L 04/14/2018 Comp Metabolic Keo864 AN ION GAP 11 04/14/2018 Comp Metabolic Ozg291 GL UCOSE 112 mg/dL 04/14/2018 Comp Metabolic Odo295 Cr eat 1.0 mg/dL 04/14/2018 Comp Metabolic Qxr411 eG FR 58 ml/min/1.73m2 04/14 Comp Metabolic Cpb139 BUN 20 mg/dL 04/14/2018 Comp Metabolic Wiq034 B/ C Ratio 20.2 Ratio 04/14/2018 Comp Metabolic Jhd688 CA LCIUM 10.0 mg/dL 04/14/2018 Comp Metabolic Lhs074 AL K PHOS 51 U/L 04/14/2018 Comp Metabolic Nnc392 T(SGOT) 24 U/L 04/14/2018 Comp Metabolic Cea009 AL T(SGPT) 21 U/L 04/14/2018 Comp Metabolic Ifh878 BI LI T 0.8 mg/dL 04/14/2018 Comp Metabolic Cza136 AL BUMIN 4.2 g/dL 04/14/2018 Comp Metabolic Sns296 TP RO 7.1 g/dL 04/14/2018 Comp Metabolic Jwi733 GL OB 2.9 g/dL 04/14/2018 Comp Metabolic Caz355 A/ G Ratio 1.5 Ratio 04/14/2018 Comp Metabolic Oxp620 Os mo 283 mOsmo 04/14/2018 Cbc With [...] 30.7 pg 04/14/2018 Cbc With Differential Ord2 [place]% 10.6 % 04/14/2018 Cbc With Differential Ord2 [...] 1.18 K/ul 04/14/2018 Cbc With Differential Ord2 [place] ABS# 0.5 K/ul 04/14/2018 Cbc With Differential Ord2 Eos ABS# 0.2 K/ul 04/14/2018 Cbc With Differential Ord2 Baso ABS# 0.1 K/ul 04/14/2018 Pt Cwy1449 PT 29.3 seconds 02/11/2018 Pt Vqh0894 INR 2.8 02/11/2018 Pt Iod7044 Low Intensity - 1.5-2.0 02/11/2018 Pt Pel7593 Mod intensity - 2.0-3.0 02/11/2018 Pt Yto7012 Hi intensity - 3.0-4.0 02/11/2018 Comp Metabolic Mzo120 NA 141 mEq/L 01/05/2018 Comp Metabolic Lza037 K 3.7 mEq/L 01/05/2018 Comp Metabolic Jtq439 CL 102 mEq/L 01/05/2018 Comp Metabolic Lyp900 CO2 29.0 mEq/L 01/05/2018 Comp Metabolic Vin250 AN ION GAP 14 01/05/2018 Comp Metabolic Tge928 GL UCOSE 136 mg/dL 01/05/2018 Comp Metabolic Tze150 Cr eat 1.0 mg/dL 01/05/2018 Comp Metabolic Ref045 eG FR 61 ml/min/1.73m2 01/05 Comp Metabolic Ngn376 BUN 22 mg/dL 01/05/2018 Comp Metabolic Uwy809 B/ C Ratio 22.9 Ratio 01/05/2018 Comp Metabolic Skv308 CA LCIUM 9.7 mg/dL 01/05/2018 Comp Metabolic Rbz879 AL K PHOS 57 U/L 01/05/2018 Comp Metabolic Ovw020 T(SGOT) 21 U/L 01/05/2018 Comp Metabolic Jbu926 AL T(SGPT) 19 U/L 01/05/2018 Comp Metabolic Sep809 BI LI T 0.9 mg/dL 01/05/2018 Comp Metabolic Sgw106 AL BUMIN 4.1 g/dL 01/05/2018 Comp Metabolic Qpz969 TP RO 7.1 g/dL 01/05/2018 Comp Metabolic Rlw732 GL OB 3.0 g/dL 01/05/2018 Comp Metabolic Gjc395 A/ G Ratio 1.4 Ratio 01/05/2018 Comp Metabolic Tdk264 Os mo 287 mOsmo 01/05/2018 Free T4 Wxz888 FREE T4 1.05 ng/dL 01/05/2018 %Hba1C Sai096 % HbA1c 95395-0 6.0 % 01/05/2018 %Hba1C Eng155 Gluc Ave 126 mg/dL 01/05/2018 Cbc With [...] 30.6 pg 01/05/2018 Cbc With Differential Ord2 [place]% 10.5 % 01/05/2018 Cbc With Differential Ord2 [...] 1.27 K/ul 01/05/2018 Cbc With Differential Ord2 [place] ABS# 0.5 K/ul 01/05/2018 Cbc With Differential Ord2 Eos ABS# 0.2 K/ul 01/05/2018 Cbc With Differential Ord2 Baso ABS# 0.1 K/ul 01/05/2018 Pt Tia4502 PT 20.7 seconds 01/05/2018 Pt Bbe4369 INR 1.8 01/05/2018 Pt Qvg4434 Low Intensity - 1.5-2.0 01/05/2018 Pt Big9287 Mod intensity - 2.0-3.0 01/05/2018 Pt Mhx8308 Hi intensity - 3.0-4.0 01/05/2018 Tsh Ord6 TSH (3rd IS) 2.34 uIU/mL 01/05/2018 Lipid Ord30 CHOL 156 mg/dL 01/05/2018 Lipid Ord30 HDL 48.0 mg/dl 01/05/2018 Lipid Ord30 TRIG 207 mg/dL 01/05/2018 Lipid Ord30 LDL 67 mg/dL 01/05/2018 Lipid Ord30 C/HDL 3.3 Ratio 01/05/2018 Pt Yjt1784 PT 28.3 seconds 11/26/2017 Pt Mdd3598 INR 2.6 11/26/2017 Pt Odh3452 Low Intensity - 1.5-2.0 11/26/2017 Pt Wxr5538 Mod intensity - 2.0-3.0 11/26/2017 Pt Cve5181 Hi intensity - 3.0-4.0 11/26/2017 Pt Heo9443 PT 36.5 seconds 11/19/2017 Pt Xug2216 INR 3.6 11/19/2017 Pt Hif3094 Low Intensity - 1.5-2.0 11/19/2017 Pt Xpi3254 Mod intensity - 2.0-3.0 11/19/2017 Pt Ftb1903 Hi intensity - 3.0-4.0 11/19/2017 Pt Rsn2586 PT 22.9 seconds 10/15/2017 Pt Qdg1422 INR 2.0 10/15/2017 Pt Vwy7667 Low Intensity - 1.5-2.0 10/15/2017 Pt Lhg1496 Mod intensity - 2.0-3.0 10/15/2017 Pt Rvq2362 Hi intensity - 3.0-4.0 10/15/2017 Pt Qsi8584 PT 25.9 seconds 10/01/2017 Pt Pbh9921 INR 2.4 10/01/2017 Pt Vqb6655 Low Intensity - 1.5-2.0 10/01/2017 Pt Oxf5897 Mod intensity - 2.0-3.0 10/01/2017 Pt Lwo9472 Hi intensity - 3.0-4.0 10/01/2017 Pt Ljf6227 PT 20.6 seconds 09/24/2017 Pt Drg8045 INR 1.8 09/24/2017 Pt Btf8679 Low Intensity - 1.5-2.0 09/24/2017 Pt Aiq0917 Mod intensity - 2.0-3.0 09/24/2017 Pt Fof8514 Hi intensity - 3.0-4.0 09/24/2017 Pt Mty5759 PT 21.0 seconds 09/15/2017 Pt Ndo6491 INR 1.8 09/15/2017 Pt Yja4939 Low Intensity - 1.5-2.0 09/15/2017 Pt Qnl0492 Mod intensity - 2.0-3.0 09/15/2017 Pt Afa0280 Hi intensity - 3.0-4.0 09/15/2017 Pt Tkh6545 PT 19.0 seconds 09/03/2017 Pt Yqo3370 INR 1.6 09/03/2017 Pt Zcj2664 Low Intensity - 1.5-2.0 09/03/2017 Pt Hua4992 Mod intensity - 2.0-3.0 09/03/2017 Pt Izl1115 Hi intensity - 3.0-4.0 09/03/2017 Pt Nkz9707 PT 17.6 seconds 08/23/2017 Pt Prd4380 INR 1.5 08/23/2017 Pt Tnc6459 Low Intensity - 1.5-2.0 08/23/2017 Pt Itl9191 Mod intensity - 2.0-3.0 08/23/2017 Pt Kuv8350 Hi intensity - 3.0-4.0 08/23/2017 Pt Fig7899 PT 12.7 seconds 08/20/2017 Pt Yin3847 INR 1.0 08/20/2017 Pt Ttl2933 Low Intensity - 1.5-2.0 08/20/2017 Pt Xcf7303 Mod intensity - 2.0-3.0 08/20/2017 Pt Gmn2692 Hi intensity - 3.0-4.0 08/20/2017 Pt Zpd1198 PT 12.9 seconds 08/17/2017 Pt Vss0938 INR 1.0 08/17/2017 Pt Kvq8183 Low Intensity - 1.5-2.0 08/17/2017 Pt Tnq7583 Mod intensity - 2.0-3.0 08/17/2017 Pt Cfy8464 Hi intensity - 3.0-4.0 08/17/2017 Pt Itf6387 PT 18.5 seconds 08/10/2017 Pt Obe6998 INR 1.6 08/10/2017 Pt Idv1801 Low Intensity - 1.5-2.0 08/10/2017 Pt Eta7069 Mod intensity - 2.0-3.0 08/10/2017 Pt Nvw9976 Hi intensity - 3.0-4.0 08/10/2017 Tsh Ord6 [...] 29.3 pg 05/27/2017 Cbc With Differential Ord2 [place]% 8.1 % 05/27/2017 Cbc With Differential Ord2 [...] 1.11 K/ul 05/27/2017 Cbc With Differential Ord2 [place] ABS# 0.6 K/ul 05/27/2017 Cbc With Differential Ord2 Eos ABS# 0.2 K/ul 05/27/2017 Cbc With Differential Ord2 Baso ABS# 0.1 K/ul 05/27/2017 Pt Lhe7856 PT 28.2 seconds 05/27/2017 Pt Otn2069 INR 2.6 05/27/2017 Pt Skz6462 Low Intensity - 1.5-2.0 05/27/2017 Pt Xcy5408 Mod intensity - 2.0-3.0 05/27/2017 Pt Zvu3950 Hi intensity - 3.0-4.0 05/27/2017 Lipid Ord30 CHOL 167 mg/dL 05/27/2017 Lipid Ord30 HDL 49.0 mg/dl 05/27/2017 Lipid Ord30 TRIG 347 mg/dL 05/27/2017 Lipid Ord30 LDL 49 mg/dL 05/27/2017 Lipid Ord30 C/HDL 3.4 Ratio 05/27/2017 Magnesium Ord90 Mag 1.4 mg/dL 05/27/2017 %Hba1C Xmb656 % HbA1c 07793-2 5.9 % 05/27/2017 %Hba1C Mls852 Gluc Ave 123 mg/dL 05/27/2017 Comp Metabolic Qrh691 NA 138 mEq/L 05/27/2017 Comp Metabolic Fev066 K 4.1 mEq/L 05/27/2017 Comp Metabolic Eph858 CL 101 mEq/L 05/27/2017 Comp Metabolic Tfk021 CO2 31.0 mEq/L 05/27/2017 Comp Metabolic Jqu585 AN ION GAP 10 05/27/2017 Comp Metabolic Kog350 GL UCOSE 117 mg/dL 05/27/2017 Comp Metabolic Wje919 Cr eat 0.9 mg/dL 05/27/2017 Comp Metabolic Xqg366 eG FR 62 ml/min/1.73m2 05/27 Comp Metabolic Ald265 BUN 25 mg/dL 05/27/2017 Comp Metabolic Pwv818 B/ C Ratio 26.6 Ratio 05/27/2017 Comp Metabolic Nuu897 CA LCIUM 9.5 mg/dL 05/27/2017 Comp Metabolic Ekl151 AL K PHOS 73 U/L 05/27/2017 Comp Metabolic Imy386 T(SGOT) 18 U/L 05/27/2017 Comp Metabolic Bdg487 AL T(SGPT) 12 U/L 05/27/2017 Comp Metabolic Vge085 BI LI T 0.5 mg/dL 05/27/2017 Comp Metabolic Lix815 AL BUMIN 4.1 g/dL 05/27/2017 Comp Metabolic Eap024 TP RO 7.1 g/dL 05/27/2017 Comp Metabolic Txr586 GL OB 3.0 g/dL 05/27/2017 Comp Metabolic Phy355 A/ G Ratio 1.3 Ratio 05/27/2017 Comp Metabolic Mjo921 Os mo 281 mOsmo 05/27/2017 Free T4 Jai170 FREE T4 0.91 ng/dL 05/27/2017 Pt Ldu4364 PT 29.2 seconds 04/16/2017 Pt Bep7436 INR 2.7 04/16/2017 Pt Kij5450 Low Intensity - 1.5-2.0 04/16/2017 Pt Sxl4751 Mod intensity - 2.0-3.0 04/16/2017 Pt Zly6086 Hi intensity - 3.0-4.0 04/16/2017 Pt Ayy2588 PT 30.7 seconds 03/31/2017 Pt Cfw2708 INR 2.9 03/31/2017 Pt Mrr8876 Low Intensity - 1.5-2.0 03/31/2017 Pt Fif4074 Mod intensity - 2.0-3.0 03/31/2017 Pt Vvu5022 Hi intensity - 3.0-4.0 03/31/2017 Pt Zbp3544 PT 21.3 seconds 03/26/2017 Pt Bws5459 INR 1.9 03/26/2017 Pt Vvk8715 Low Intensity - 1.5-2.0 03/26/2017 Pt Pwf7577 Mod intensity - 2.0-3.0 03/26/2017 Pt Oam5075 Hi intensity - 3.0-4.0 03/26/2017 Pt Sso9324 PT 19.8 seconds 03/22/2017 Pt Voq7448 INR 1.7 03/22/2017 Pt Sti0525 Low Intensity - 1.5-2.0 03/22/2017 Pt Sdp7544 Mod intensity - 2.0-3.0 03/22/2017 Pt Wqy4076 Hi intensity - 3.0-4.0 03/22/2017 Pt Cfy6046 PT 15.6 seconds 03/19/2017 Pt Kap6869 INR 1.3 03/19/2017 Pt Yre1327 Low Intensity - 1.5-2.0 03/19/2017 Pt Zhg1729 Mod intensity - 2.0-3.0 03/19/2017 Pt Cal4139 Hi intensity - 3.0-4.0 03/19/2017 Pt Jlo9736 PT 13.7 seconds 03/15/2017 Pt Pkb8094 INR 1.1 03/15/2017 Pt Glq8869 Low Intensity - 1.5-2.0 03/15/2017 Pt Ymg6462 Mod intensity - 2.0-3.0 03/15/2017 Pt Eei1135 Hi intensity - 3.0-4.0 03/15/2017 Pt Qgk5133 PT 25.8 seconds 01/28/2017 Pt Igc9397 INR 2.4 01/28/2017 Pt Hev8510 Low Intensity - 1.5-2.0 01/28/2017 Pt Hwb2910 Mod intensity - 2.0-3.0 01/28/2017 Pt Bxc7744 Hi intensity - 3.0-4.0 01/28/2017 %Hba1C Rnt070 % HbA1c 97105-7 6.4 % 10/23/2016 %Hba1C Cql575 Gluc Ave 137 mg/dL 10/23/2016 Comp Metabolic Ngy006 NA 138 mEq/L 10/23/2016 Comp Metabolic Mpd787 K 3.4 mEq/L 10/23/2016 Comp Metabolic Qlo082 CL 100 mEq/L 10/23/2016 Comp Metabolic Bon198 CO2 30.0 mEq/L 10/23/2016 Comp Metabolic Eci380 AN ION GAP 11 10/23/2016 Comp Metabolic Xwj088 GL UCOSE 139 mg/dL 10/23/2016 Comp Metabolic Pjv329 Cr eat 0.9 mg/dL 10/23/2016 Comp Metabolic Rqh591 eG FR 62 ml/min/1.73m2 10/23 Comp Metabolic Adq302 BUN 22 mg/dL 10/23/2016 Comp Metabolic Fiu601 B/ C Ratio 23.4 Ratio 10/23/2016 Comp Metabolic Uds907 CA LCIUM 8.7 mg/dL 10/23/2016 Comp Metabolic Usp352 AL K PHOS 66 U/L 10/23/2016 Comp Metabolic Npz842 T(SGOT) 20 U/L 10/23/2016 Comp Metabolic Rgj681 AL T(SGPT) 10 U/L 10/23/2016 Comp Metabolic Cfk025 BI LI T 0.5 mg/dL 10/23/2016 Comp Metabolic Vhk622 AL BUMIN 3.5 g/dL 10/23/2016 Comp Metabolic Hdk040 TP RO 6.3 g/dL 10/23/2016 Comp Metabolic Jgr695 GL OB 2.8 g/dL 10/23/2016 Comp Metabolic Luf582 A/ G Ratio 1.3 Ratio 10/23/2016 Comp Metabolic Ckn724 Os mo 281 mOsmo 10/23/2016 Pt Rwq6434 PT 26.8 seconds 10/23/2016 Pt Ktd4939 INR 2.7 10/23/2016 Pt Mzd5806 Low Intensity - 1.5-2.0 10/23/2016 Pt Viv4390 Mod intensity - 2.0-3.0 10/23/2016 Pt Gqv6662 Hi intensity - 3.0-4.0 10/23/2016 Pt Aer3212 PT 28.3 seconds 09/25/2016 Pt Smg2048 INR 2.8 09/25/2016 Pt Qcx9605 Low Intensity - 1.5-2.0 09/25/2016 Pt Stl2841 Mod intensity - 2.0-3.0 09/25/2016 Pt Eaz5306 Hi intensity - 3.0-4.0 09/25/2016 Metabolic Ord15 [...] Metabolic Ord15 CALCIUM 8.8 mg/dL 09/25/2016 Pt Rio8876 PT 30.6 seconds 09/11/2016 Pt Nvy2681 INR 3.2 09/11/2016 Pt Nhl0278 Low Intensity - 1.5-2.0 09/11/2016 Pt Rny5197 Mod intensity - 2.0-3.0 09/11/2016 Pt Fyt6514 Hi intensity - 3.0-4.0 09/11/2016 Comp Metabolic Aet985 NA 138 mEq/L 09/11/2016 Comp Metabolic Czv542 K 4.4 mEq/L 09/11/2016 Comp Metabolic Bxr757 CL 103 mEq/L 09/11/2016 Comp Metabolic Kxp717 CO2 31.0 mEq/L 09/11/2016 Comp Metabolic Mni842 AN ION GAP 8 09/11/2016 Comp Metabolic Gox196 GL UCOSE 146 mg/dL 09/11/2016 Comp Metabolic Lqa073 Cr eat 1.0 mg/dL 09/11/2016 Comp Metabolic Wjg345 eG FR 60 ml/min/1.73m2 09/11 Comp Metabolic Mth059 BUN 16 mg/dL 09/11/2016 Comp Metabolic Cwp418 B/ C Ratio 16.5 Ratio 09/11/2016 Comp Metabolic Fvl394 CA LCIUM 8.7 mg/dL 09/11/2016 Comp Metabolic Keu722 AL K PHOS 52 U/L 09/11/2016 Comp Metabolic Jrd427 T(SGOT) 19 U/L 09/11/2016 Comp Metabolic Zyt578 AL T(SGPT) 11 U/L 09/11/2016 Comp Metabolic Cmx922 BI LI T 0.7 mg/dL 09/11/2016 Comp Metabolic Qss777 AL BUMIN 3.3 g/dL 09/11/2016 Comp Metabolic Zqb117 TP RO 5.8 g/dL 09/11/2016 Comp Metabolic Ans922 GL OB 2.5 g/dL 09/11/2016 Comp Metabolic Urt232 A/ G Ratio 1.3 Ratio 09/11/2016 Comp Metabolic Wou100 Os mo 280 mOsmo 09/11/2016 C-Reactive Protein Qnt Crqnt CRP 0.1 mg/dl 08/21/2016 Comp Metabolic Wlg584 NA 139 mEq/L 08/21/2016 Comp Metabolic Hrm392 K 4.1 mEq/L 08/21/2016 Comp Metabolic Lvr833 CL 102 mEq/L 08/21/2016 Comp Metabolic Irf065 CO2 30.0 mEq/L 08/21/2016 Comp Metabolic Wtd858 AN ION GAP 11 08/21/2016 Comp Metabolic Cbr690 GL UCOSE 148 mg/dL 08/21/2016 Comp Metabolic Bmz879 Cr eat 1.0 mg/dL 08/21/2016 Comp Metabolic Zhn861 eG FR 55 ml/min/1.73m2 08/21 Comp Metabolic Wxl874 BUN 21 mg/dL 08/21/2016 Comp Metabolic Rqv043 B/ C Ratio 20.2 Ratio 08/21/2016 Comp Metabolic Eiq167 CA LCIUM 9.4 mg/dL 08/21/2016 Comp Metabolic Pei975 AL K PHOS 63 U/L 08/21/2016 Comp Metabolic Fma576 T(SGOT) 23 U/L 08/21/2016 Comp Metabolic Xgq697 AL T(SGPT) 16 U/L 08/21/2016 Comp Metabolic Lib091 BI LI T 0.6 mg/dL 08/21/2016 Comp Metabolic Bun451 AL BUMIN 3.9 g/dL 08/21/2016 Comp Metabolic Yqg608 TP RO 6.8 g/dL 08/21/2016 Comp Metabolic Uzo270 GL OB 2.9 g/dL 08/21/2016 Comp Metabolic Xar019 A/ G Ratio 1.4 Ratio 08/21/2016 Comp Metabolic Uba971 Os mo 283 mOsmo 08/21/2016 Sed Rate Ord21 ESR 16 mm/hr 08/21/2016 Pt Unz9383 PT 27.2 seconds 08/21/2016 Pt Sfz9880 INR 2.7 08/21/2016 Pt Yry1158 Low Intensity - 1.5-2.0 08/21/2016 Pt Bmz8615 Mod intensity - 2.0-3.0 08/21/2016 Pt Zhd2059 Hi intensity - 3.0-4.0 08/21/2016 Magnesium Ord90 Mag 1.9 mg/dL 08/21/2016 Pt Bua6394 PT 25.9 seconds 06/17/2016 Pt Mfn0111 INR 2.5 06/17/2016 Pt Fna6954 Low Intensity - 1.5-2.0 06/17/2016 Pt Azq7594 Mod intensity - 2.0-3.0 06/17/2016 Pt Haj8066 Hi intensity - 3.0-4.0 06/17/2016 Tsh Ord6 hTSH II 2.13 uIU/mL 06/08/2016 Free T4 Avb498 FREE T4 0.79 ng/dL 06/08/2016 Cbc With [...] 26.8 pg 06/08/2016 Cbc With Differential Ord2 [place]% 12.0 % 06/08/2016 Cbc With Differential Ord2 [...] 1.40 K/ul 06/08/2016 Cbc With Differential Ord2 [place] ABS# 0.7 K/ul 06/08/2016 Cbc With Differential Ord2 Eos ABS# 0.3 K/ul 06/08/2016 Cbc With Differential Ord2 Baso ABS# 0.1 K/ul 06/08/2016 %Hba1C Ihx742 % HbA1c 30666-0 6.2 % 06/08/2016 %Hba1C Yyt250 Gluc Ave 131 mg/dL 06/08/2016 Comp Metabolic Wwe087 NA 138 mEq/L 06/08/2016 Comp Metabolic Gbj973 K 3.9 mEq/L 06/08/2016 Comp Metabolic Vug676 CL 105 mEq/L 06/08/2016 Comp Metabolic Okq210 CO2 27.0 mEq/L 06/08/2016 Comp Metabolic Nvg139 AN ION GAP 10 06/08/2016 Comp Metabolic Skl219 GL UCOSE 127 mg/dL 06/08/2016 Comp Metabolic Vgg281 Cr eat 1.0 mg/dL 06/08/2016 Comp Metabolic Awk289 eG FR 59 ml/min/1.73m2 06/08 Comp Metabolic Hrp662 BUN 19 mg/dL 06/08/2016 Comp Metabolic Edh299 B/ C Ratio 19.4 Ratio 06/08/2016 Comp Metabolic Tff591 CA LCIUM 9.2 mg/dL 06/08/2016 Comp Metabolic Enm373 AL K PHOS 77 U/L 06/08/2016 Comp Metabolic Gtu083 T(SGOT) 19 U/L 06/08/2016 Comp Metabolic Nal085 AL T(SGPT) 13 U/L 06/08/2016 Comp Metabolic Jol455 BI LI T 0.5 mg/dL 06/08/2016 Comp Metabolic Evs844 AL BUMIN 3.8 g/dL 06/08/2016 Comp Metabolic Daq848 TP RO 6.6 g/dL 06/08/2016 Comp Metabolic Ice948 GL OB 2.8 g/dL 06/08/2016 Comp Metabolic Xqm087 A/ G Ratio 1.4 Ratio 06/08/2016 Comp Metabolic Mcs184 Os mo 280 mOsmo 06/08/2016 Pt Uxt3659 PT 36.1 seconds 06/08/2016 Pt Cvx3126 INR 3.9 06/08/2016 Pt Hjr8794 Low Intensity - 1.5-2.0 06/08/2016 Pt Okr9360 Mod intensity - 2.0-3.0 06/08/2016 Pt Hft2588 Hi intensity - 3.0-4.0 06/08/2016 Lipid Ord30 CHOL 149 mg/dL 06/08/2016 Lipid Ord30 HDL 46.0 mg/dl 06/08/2016 Lipid Ord30 TRIG 279 mg/dL 06/08/2016 Lipid Ord30 LDL 47 mg/dL 06/08/2016 Lipid Ord30 C/HDL 3.2 Ratio 06/08/2016 Pt Tns2921 PT 30.9 seconds 02/12/2016 Pt Tcy8883 INR 3.2 02/12/2016 Pt Sfv4047 Low Intensity - 1.5-2.0 02/12/2016 Pt Goq4455 Mod intensity - 2.0-3.0 02/12/2016 Pt Odw3525 Hi intensity - 3.0-4.0 02/12/2016 Free T4 Uaq564 FREE T4 1.24 ng/dL 09/27/2015 %Hba1C Dpg146 % HbA1c 39480-3 6.4 % 09/27/2015 %Hba1C Sdw986 Gluc Ave 137 mg/dL 09/27/2015 Tsh Ord6 hTSH II 0.37 uIU/mL 09/27/2015 Pt Ziq0761 PT 26.2 seconds 09/27/2015 Pt Pdn7708 INR 2.5 09/27/2015 Pt Fed6198 Low Intensity - 1.5-2.0 09/27/2015 Pt Cyd3636 Mod intensity - 2.0-3.0 09/27/2015 Pt Dkj6468 Hi intensity - 3.0-4.0 09/27/2015 Pt Hje1209 PT 27.6 seconds 2015 Pt Ubj2080 INR 2.7 2015 Pt Bfw0198 Low Intensity - 1.5-2.0 2015 Pt Exu7026 Mod intensity - 2.0-3.0 2015 Pt Sxj0562 Hi intensity - 3.0-4.0 2015 %Hba1C Kwi258 % HbA1c 10245-1 6.1 % 06/11/2015 %Hba1C Pue152 Gluc Ave 128 mg/dL 06/11/2015 Cbc With [...] Ord2 RDW 15.8 % 06/10/2015 Comp Metabolic Dhy376 NA 139 mEq/L 06/10/2015 Comp Metabolic Fju605 K 4.1 mEq/L 06/10/2015 Comp Metabolic Uqc445 CL 105 mEq/L 06/10/2015 Comp Metabolic Ojw347 CO2 27.0 mEq/L 06/10/2015 Comp Metabolic Emh145 AN ION GAP 11 06/10/2015 Comp Metabolic Kmr605 GL UCOSE 127 mg/dL 06/10/2015 Comp Metabolic Fpb237 Cr eat 1.0 mg/dL 06/10/2015 Comp Metabolic Ahd673 eG FR 59 ml/min/1.73m2 06/10 Comp Metabolic Zef805 BUN 21 mg/dL 06/10/2015 Comp Metabolic Cfq660 B/ C Ratio 21.2 Ratio 06/10/2015 Comp Metabolic Pmr681 CA LCIUM 9.2 mg/dL 06/10/2015 Comp Metabolic Nai565 AL K PHOS 87 U/L 06/10/2015 Comp Metabolic Axw392 T(SGOT) 20 U/L 06/10/2015 Comp Metabolic Mgk216 AL T(SGPT) 17 U/L 06/10/2015 Comp Metabolic Hnd238 BI LI T 0.4 mg/dL 06/10/2015 Comp Metabolic Wri033 AL BUMIN 4.1 g/dL 06/10/2015 Comp Metabolic Uej987 TP RO 7.2 g/dL 06/10/2015 Comp Metabolic Dye780 GL OB 3.1 g/dL 06/10/2015 Comp Metabolic Kyx083 A/ G Ratio 1.3 Ratio 06/10/2015 Comp Metabolic Qdp654 Os mo 282 mOsmo 06/10/2015 Tsh Ord6 hTSH II 0.86 uIU/mL 06/10/2015 Lipid Ord30 CHOL 161 mg/dL 06/10/2015 Lipid Ord30 HDL 49.0 mg/dl 06/10/2015 Lipid Ord30 TRIG 208 mg/dL 06/10/2015 Lipid Ord30 LDL 70 mg/dL 06/10/2015 Lipid Ord30 C/HDL 3.3 Ratio 06/10/2015 Pt Wii1134 PT 25.0 seconds 04/09/2015 Pt Nys2928 INR 2.4 04/09/2015 Pt Vnq5399 Low Intensity - 1.5-2.0 04/09/2015 Pt Snj3697 Mod intensity - 2.0-3.0 04/09/2015 Pt Bpe0002 Hi intensity - 3.0-4.0 04/09/2015 Free T4 Kzs944 FREE T4 1.05 ng/dL 01/22/2015 Pt Ieg3409 PT 27.2 seconds 01/22/2015 Pt Wcw4340 INR 2.6 01/22/2015 Pt Cwl3268 Low Intensity - 1.5-2.0 01/22/2015 Pt Lzr6809 Mod intensity - 2.0-3.0 01/22/2015 Pt Hae0912 Hi intensity - 3.0-4.0 01/22/2015 Cbc With [...] Differential Ord2 RDW 15.2 % 01/22/2015 B12 Cdj593 B12 402.00 pg/ml 01/22/2015 Tsh Ord6 hTSH II 0.65 uIU/mL 01/22/2015 Lipid Ord30 CHOL 166 mg/dL 01/22/2015 Lipid Ord30 HDL 48.0 mg/dl 01/22/2015 Lipid Ord30 TRIG 264 mg/dL 01/22/2015 Lipid Ord30 LDL 65 mg/dL 01/22/2015 Lipid Ord30 C/HDL 3.5 Ratio 01/22/2015 Comp Metabolic Tur536 NA 138 mEq/L 01/22/2015 Comp Metabolic Kee368 K 4.1 mEq/L 01/22/2015 Comp Metabolic Suu351 CL 104 mEq/L 01/22/2015 Comp Metabolic Hgw677 CO2 29.0 mEq/L 01/22/2015 Comp Metabolic Ztc397 AN ION GAP 9 01/22/2015 Comp Metabolic Ouz038 GL UCOSE 106 mg/dL 01/22/2015 Comp Metabolic Mjb758 Cr eat 0.9 mg/dL 01/22/2015 Comp Metabolic Vly389 eG FR 63 ml/min/1.73m2 01/22 Comp Metabolic Lvf720 BUN 21 mg/dL 01/22/2015 Comp Metabolic Ayy699 B/ C Ratio 22.3 Ratio 01/22/2015 Comp Metabolic Hnm320 CA LCIUM 9.4 mg/dL 01/22/2015 Comp Metabolic Ths399 AL K PHOS 83 U/L 01/22/2015 Comp Metabolic Wuq501 T(SGOT) 23 U/L 01/22/2015 Comp Metabolic Evt610 AL T(SGPT) 18 U/L 01/22/2015 Comp Metabolic Vts824 BI LI T 0.8 mg/dL 01/22/2015 Comp Metabolic Dlu284 AL BUMIN 4.2 g/dL 01/22/2015 Comp Metabolic Jud079 TP RO 7.3 g/dL 01/22/2015 Comp Metabolic Rae689 GL OB 3.1 g/dL 01/22/2015 Comp Metabolic Hkc256 A/ G Ratio 1.4 Ratio 01/22/2015 Comp Metabolic Wmu860 Os mo 279 mOsmo 01/22/2015 Review of [...] clear 01/04/2018 None Full Exam - General 1995 Ears/Nose/Throat [...] Procedure Codes Date THER/PROPH/DIAG INJ SC/IM CPT-4: 93551 09/02/2018 TRIAMCINOLONE ACET I [place] NOS CPT-4: J3301 09/02/2018 URINALYSIS NONAUTO W /O SCOPE CPT-4: 89618 03/05/2017 Vital Signs Date Vital 09/02/2018 Blood Pressure 1: 128/72 Code: 8480-6 BMI: 38.2 Code: 96923-6 Heart Rate 1: 80 bpm Height: 5'1" SpO2: 98% Weight: 202 lbs 04/14/2018 Blood Pressure 1: 116/78 Code: 8480-6 BMI: 41.6 Code: 59558-2 Heart Rate 1: 72 bpm Height: 5'1" SpO2: 98% Weight: 220 lbs 01/18/2018 Blood Pressure 1: 132/74 Code: 8480-6 BMI: 43.5 Code: 45454-1 Heart Rate 1: 70 bpm Height: 5'1" SpO2: 97% Weight: 230 lbs 01/04/2018 Blood Pressure 1: 134/76 Code: 8480-6 BMI: 42.7 Code: 84749-6 Heart Rate 1: 83 bpm Height: 5'1" SpO2: 98% Weight: 226 lbs 09/23/2017 Blood Pressure 1: 124/76 Code: 8480-6 BMI: 42.3 Code: 21982-4 Heart Rate 1: 94 bpm Height: 5'1" SpO2: 96% Weight: 224 lbs 05/27/2017 Blood Pressure 1: 146/78 Code: 8480-6 BMI: 41.4 Code: 78951-6 Heart Rate 1: 85 bpm Height: 5'1" SpO2: 98% Weight: 219 lbs 02/24/2017 Blood Pressure 1: 138/66 Code: 8480-6 BMI: 41.4 Code: 53220-3 Heart Rate 1: 78 bpm Height: 5'1" SpO2: 97% Weight: 219 lbs 11/02/2016 Blood Pressure 1: 144/72 Code: 8480-6 BMI: 46.1 Code: 03462-8 Heart Rate 1: 78 bpm Height: 5'1" SpO2: 98% Weight: 244 lbs 09/30/2016 Blood Pressure 1: 130/76 Code: 8480-6 BMI: 45.0 Code: 07939-6 Heart Rate 1: 86 bpm Height: 5'1" SpO2: 98% Weight: 238 lbs 09/10/2016 Blood Pressure 1: 136/68 Code: 8480-6 BMI: 46.3 Code: 29401-6 Heart Rate 1: 83 bpm Height: 5'1" SpO2: 98% Weight: 245 lbs 08/20/2016 Blood Pressure 1: 142/78 Code: 8480-6 BMI: 45.3 Code: 30775-6 Heart Rate 1: 84 bpm Height: 5'1" SpO2: 99% Weight: 240 lbs 06/08/2016 Blood Pressure 1: 134/76 Code: 8480-6 BMI: 44.2 Code: 17877-5 Heart Rate 1: 86 bpm Height: 5'1" SpO2: 96% Weight: 234 lbs 04/02/2016 Blood Pressure 1: 142/70 Code: 8480-6 BMI: 44.6 Code: 79499-2 Heart Rate 1: 78 bpm Height: 5'1" SpO2: 97% Weight: 236 lbs 01/14/2016 Blood Pressure 1: 146/72 Code: 8480-6 BMI: 44.2 Code: 06557-7 Heart Rate 1: 86 bpm Height: 5'1" SpO2: 96% Weight: 234 lbs 10/02/2015 Blood Pressure 1: 158/76 Code: 8480-6 BMI: 44.2 Code: 74804-9 Heart Rate 1: 67 bpm Height: 5'1" SpO2: 97% Weight: 234 lbs 07/15/2015 Blood Pressure 1: 200/90 Code: 8480-6 Blood Pressure 1: 148/78 Code: 8480-6 BMI: 44.0 Code: 22684-8 Heart Rate 1: 89 bpm Height: 5'1" SpO2: 97% Weight: 233 lbs 06/10/2015 Blood Pressure 1: 140/82 Code: 8480-6 BMI: 44.0 Code: 06537-3 Heart Rate 1: 78 bpm Height: 5'1" [...] int ermittent 05/27/2017 None hypertension Quality kenji gabe hypertension 05/27/2017 None hypertension Onset and Resolution [...] wearing crocs and there was a new guinean on the floor: her foot didn't move [...] Encounters Encounter Performer Loca tion Codes Date 81615 EST. PATIENT, LEVEL IV Diagnosis: Other acute sinusitis[ICD10: J01.80] Diagnosis: Other allergic rhinitis[ICD10: J30.89] Nata Almanza MD, [facility] CPT-4: 42690 09/02/2018 ([id number]) 30273 EST. 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 P ATIENT, LEVEL III Diagnosis: Localized edema[ICD10: R60.0] Diagnosis: Gastro-esophageal reflux disease without esophagitis[ICD10: K21.9] Edna Almanza MD, [facility] CPT-4: 52653 01/18/2018 ([id number]) 02774 EST. P ATIENT, LEVEL IV Diagnosis: Gastro-esophageal reflux disease without esophagitis[ICD10: K21.9] Diagnosis: Localized edema[ICD10: R60.0] Diagnosis: Essential (primary) hypertension[ICD10: I10] Diagnosis: Hypothyroidism, unspecified[ICD10: E03.9] Diagnosis: Impaired fasting glucose[ICD10: R73.01] Edna Almanza MD, [facility] CPT-4: 23747 01/04/2018 ([id number]) 22819 EST. 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 PATIENT, LEVEL III Diagnosis: Pain in right hip[ICD10: M25.551] Nata Almanza MD, [facility] CPT-4: 52832 02/24/2017 ([id number]) 14800 EST. P ATIENT, LEVEL IV Diagnosis: Essential (primary) hypertension[ICD10: I10] Diagnosis: Localized edema[ICD10: R60.0] Diagnosis: Pain in right hip[ICD10: M25.551] Sarai Almanza MD, [facility] CPT-4: 20041 11/02/2016 ([id number]) 01468 EST. P ATIENT, LEVEL IV Diagnosis: Essential (primary) hypertension[ICD10: I10] Diagnosis: Localized edema[ICD10: R60.0] Sarai Almanza MD, [facility] CPT-4: 67482 09/30/2016 90639 EST. PATIENT, LEVEL IV Diagnosis: Localized edema[ICD10: R60.0] Diagnosis: Pain in joints of left hand[ICD10: M25.542] Diagnosis: Pain in joints of right hand[ICD10: M25.541] Nata Almanza MD, [facility] CPT-4: 19038 09/10/2016 74889 EST. PATIENT, LEVEL IV Diagnosis: Localized edema[ICD10: R60.0] Diagnosis: Pain in joints of left hand[ICD10: M25.542] Diagnosis: Pain in joints of right hand[ICD10: M25.541] Diagnosis: Other fatigue[ICD10: R53.83] Ntaa Almanza MD, [facility] CPT-4: 47776 08/20/2016 77506 EST. 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 PATIENT, LEVEL IV Diagnosis: Other allergic rhinitis[ICD10: J30.89] Diagnosis: Acute laryngopharyngitis[ICD10: J06.0] Nata Almanza MD, [facility] CPT-4: 42505 04/02/2016 06372 EST. PATIENT, LEVEL IV Diagnosis: Left upper quadrant pain[ICD10: R10.12] Nata Almanza MD, [facility] CPT-4: 23882 01/14/2016 80675 EST. PATIENT, LEVEL IV Diagnosis: Pain in left shoulder[ICD10: M25.512] Diagnosis: Body mass index (BMI) 40.0-44.9, adult[ICD10: Z68.41] Nata Almanza MD, [facility] CPT-4: 65995 10/02/2015 45939 EST. PATIENT, LEVEL IV Diagnosis: Pain in left leg[ICD10: M79.605] Diagnosis: Other group home (current) drug therapy[ICD10: Z79.899] Nata Almanza MD, [facility] CPT-4: 86181 07/15/2015 ([id number]) 64697 EST. 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: Other group home (current) drug therapy[ICD10: Z79.899] Edna Almanza MD, [facility] CPT-4: 65070 06/10/2015 ([id number]) OFFICE VISI T, NEW - LEVEL 4 Diagnosis: ESSENTIAL HYPERTENSION[ICD9: 401.9] Diagnosis: HYPOTHYROIDISM[ICD9: 244.9] Diagnosis: ENCNTR LONG-RX USE NEC[ICD9: V58.69] Diagnosis: HYPERLIPIDEMIA[ICD9: 272.4] Diagnosis: Vitamin B12 deficiency[ICD9: 266.2] Diagnosis: Status post gastric surgery[ICD9: V45.89] Diagnosis: Snoring[ICD9: 786.09] [facility] CPT-4: 86785 01/22/2015 Plan of Care Planned Activity Notes [...] allergy spray. 09/02/2018 Appointment: Nata Hsu WPtel: [facility] (15 min) Moderate 09/02/2018 Patient Education: Patient [...] Hgb A1C 04/14/2018 Appointment: Edna Douglas WPtel: [phone] [phone] (15 min) Moderate 04/14/2018 Patient Education: Patient [...] to further attempt to reduce peripheral edema. NRDJ-pwctiqez-rjhfxzto prilosec BID and carafate QID -discussed low spice, low acidic diet 01/18/2018 [phone] (15 min) Moderate 01/18/2018 Patient Education: Patient [...] control. 01/04/2018 Appointment: Edna Douglas WPtel: [phone] [phone] (30 min) Complex 01/04/2018 Patient Education: Patient Medication Summary Completed 01/04/2018 Care Plan: SCREENINGMAMMOGRAPHYDIGITAL LOINC : 25755-8 Pending 01/04/2018 Visit Plan: Abdominal hernia - not able to be taken to surgery by local providers and pt has been seen at [facility] and that surgeon felt like Kat [...] home. 09/23/2017 Appointment: [phone] [facility] (15 min) Moderate 09/23/2017 Patient Education: Patient [...] medications. 05/27/2017 Appointment: Edna Douglas WPtel: [phone] [phone] [place] (30 min) Complex 05/27/2017 Patient Education: [...] [place]. 02/24/2017 App[facility]ment[phone] [place] (30 min) Complex 02/24/2017 [...] dr. Chaney. 11/02/2016 Appointment: Sarai Almanza WPtel: [phone] [phone] (15 min) Moderate 11/02/2016 Patient Education: Patient [...] edema. 09/30/2016 Appointment: Sarai Almanza WPtel: [phone] [facility] (15 min) Moderate 09/30/2016 Patient Education: [...] peripheral edema. 09/10/2016 App[facility]ment[phone] (30 min) Complex 09/10/2016 Patient Education: Patient [...] edema. 08/20/2016 App[facility]ment[phone] (30 min) Complex 08/20/2016 Patient Education: Patient Medication Summary Completed 08/20/2016 [id number] Ref[facility] Initiated 07/02/2016 Visit Plan: Chronic Anticoagulant [...] 06/08/2016 Care Plan: Referral Order SNOMED-CT : [id number] Pending 06/08/2016 Visit Plan: URI - Pt [...] spray. 04/02/2016 App[facility]ment[phone] (30 min) Complex 04/02/2016 Patient Education: Patient [...] acute pain 01/14/2016 Appointment: Edna Douglas WPtel: [phone] (30 min) Complex 01/14/2016 Patient Education: Patient Medication Summary Completed 01/14/2016 Patient Education: Obesity Completed 01/14/2016 Care Plan: BMI Above normal followup DAVID F-MGMT EDUC & TRAIN 1 PT Pending 10/24/2015 Care Plan: X-RAY EXAM OF SHOULDER LOINC : 16088-2 Pending 10/24/2015 Visit Plan: Left shoulder pain [...] weight check. 10/02/2015 Appointment: Edna Douglas WPtel: [phone] (15 min) Moderate 10/02/2015 Patient Education: Patient [...] ses Completed 06/10/2015 Appointment: Sarai Almanza WPtel: [phone] (15 min) Moderate 04/22/2015 Visit Plan: Hypertension [...] have surgical fixation - planning occurring at [facility]. Snoring - Sleep apnea symptoms [...] to medications. 01/22/2015 Appointment: Sarai Almanza WPtel: [address] [place], [place] [address] [place] ([place]) New Patient 01/22/2015 Patient Education: Patient Medication Summary Completed 01/22/2015 Patient Education: Hypertension Completed 01/22/2015 [id number] Referral Initiated Instructions Comment steroid shot today [...] to further attempt to reduce peripheral edema. OTIR-jyvaqwxz-sandrext prilosec BID and carafate QID -discussed low [...] providers and pt has been seen at [facility] and that surgeon felt like Kat would be better served by Dr. Betancur at [facility]. I have recommended a referral to dr. [...] have surgical fixation - planning occurring at [facility]. Snoring - Sleep apnea symptoms [...]
--- OUTSIDE RECORDS SUMMARY | 2020-01-16 22:40 | XMS REPORT | CCD ---
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 [place] Medicare Part B [id number] 2017 Unknown Family history Father Diagnosis Age At Onset Hyperlipidemia Unknown Heart Attack Unknown Mother Diagnosis Age At Onset Arthritis Unknown Social History Social History Element Codes Description Effective Dates Marital status Unknown M arried Nathan 09/30/2016 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 Number of children Unknown 3 01/22/[address]: 654288279 Never smoker 01/22/[address]: 136613493 Never drinks alcohol 01/22/2015 Allergies, Adverse Reactions, Alerts Substance Reaction Codes Entered Date Inactivated Date Status * NO KNOWN DRUG ORIN RGIES Unknown 01/22/2015 No Inactive Date Active Past Medical History Illness Codes Condition Status Onset Date Resolved Date Mixed hyperlipidemia ICD-9: 272.4 ICD-10: E78.2 Active 06/09/2015 Unknown Hypothyroidism, unsp ecified ICD-9: 244.9 ICD-10: E03.9 Active 05/27/2017 Unknown 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 ICD-10: [...] 244.9 ICD-10: E03.9 05/27/2017 Active 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 ICD-10: [...] E R 20 mEq tablet,extended release RxNorm: 340531 TAKE ONE TABLET BY MOUTH DAILY 01/19/2019 04/18/2019 Active Carafate 1 gram tablet RxNorm: 276978 TAKE ONE TABLET BY MOUTH BEFORE MEALS AN D AT BEDTIME 12/30/2018 02/19/2019 Active Carafate 1 gram tablet RxNorm: 904469 TAKE ONE TABLET BY MOUTH BEFORE MEALS AN D AT BEDTIME 12/12/2018 12/29/2018 Inactive mupirocin 2 % topica l ointment RxNorm: 008663 1 Application TOP TID 12/08/2018 12/17/2018 Inactive mupirocin 2 % topica l ointment RxNorm: 257756 1 Application TOP TID 12/08/2018 12/07/2018 Inactive allopurinol 300 mg t ablet RxNorm: 309515 TAKE ONE TABLET BY MO UTH DAILY 11/22/2018 03/21/2019 Ac tive clonazepam 0.5 mg ta blet RxNorm: 545491 1 Tablet(s) PO BID 11/16/2018 04/14/2019 Active Carafate 1 gram tablet RxNorm: 103999 TAKE ONE TABLET BY MOUTH BEFORE MEALS AN D AT BEDTIME 11/15/2018 12/10/2018 Inactive atenolol 100 mg tablet RxNorm: 636542 TAKE ONE TABLET BY MOUTH DAILY 10/24/2018 05/21/2019 Ac tive potassium chloride E R 20 mEq tablet,extended release RxNorm: 390326 2 Tablet(s) PO daily 10/18/2018 02/14/2019 Active potassium chloride E R 20 mEq tablet,extended release RxNorm: 121387 1 Tablet(s) PO daily 10/03/2018 10/17/2018 Inactive Carafate 1 gram tablet RxNorm: 357850 TAKE ONE TABLET BY MOUTH BEFORE MEALS AN D AT BEDTIME 09/26/2018 11/14/2018 Inactive Plavix 75 mg tablet RxNorm: 860023 TAKE ONE TABLET BY MOUTH DAILY 09/02/2018 02/28/2019 Ac tive prednisone 10 mg tablet RxNorm: 016022 Tablet(s) PO 09/02/2018 No Stop Date Active 60,60,50,50,40,40,30,30,20,20,10,10 Synthroid 125 mcg ta blet RxNorm: 634359 1 Tablet(s) PO daily 09/02/2018 08/27/2019 Active potassium chloride E R 20 mEq tablet,extended release RxNorm: 291672 1 Tablet(s) PO daily 09/02/2018 09/01/2018 Inactive potassium chloride E R 20 mEq tablet,extended release RxNorm: 568954 1 Tablet(s) PO daily 09/02/2018 10/02/2018 Inactive Synthroid 125 mcg ta blet RxNorm: 705721 1 Tablet(s) PO daily 09/02/2018 09/01/2018 Inactive Keflex 500 mg capsule RxNorm: 192158 1 Capsule(s) PO TID 09/02/2018 09/08/2018 Inactive Kenalog 40 mg/mL maxine pension for injection RxNorm: 9085643 Milliliter(s) Inj 09/02/2018 09/02/2018 In active Lipitor 40 mg tablet RxNorm: 183099 TAKE ONE TABLET BY MOUTH DAILY 07/29/2018 07/23/2019 Ac tive Coumadin 1 mg tablet RxNorm: 526392 TAKE ONE TABLET BY MOUTH DAILY 07/29/2018 10/26/2018 In active Carafate 1 gram tablet RxNorm: 329810 TAKE ONE TABLET BY MOUTH BEFORE MEALS AN D AT BEDTIME 07/28/2018 09/17/2018 Inactive Coumadin 4 mg tablet RxNorm: 222068 2 Tablet(s) daily 07/11/2018 02/05/2019 Active Generi c For:COUMADIN 4MG 07/22/2017 8:58:26 AM Coumadin 5 mg tablet RxNorm: 263031 Tablet(s) TAKE 1 TABLET BY MOUTH DIRE CTED 07/08/2018 01/03/2019 Inactive Generic For:COUMADIN 5MG TAB 03/21/2018 9:13:00 AM Coumadin 4 mg tablet RxNorm: 190460 Tablet(s) TAKE 1 TABLET BY MOUTH THREE T IMES PER WEEK (WEDNESDAY, WEDNESDAY AND WEDNESDAY) 07/08/2018 07/10/2018 Inactive Gene andre For:COUMADIN 4MG 07/22/2017 8:58:26 AM Coumadin 1 mg tablet RxNorm: 879822 1 Tablet(s) PO daily 07/08/2018 08/06/2018 Inactive venlafaxine ER 75 mg capsule,extended release 24 hr RxNorm: 273998 Capsule(s) TAKE 1 CAPSULE BY MOUTH ONCE DAILY 06/23/2018 06/17/2019 Active Generic For:*EFFEXOR XR 75MG 06/19/2017 12:23:45 PM sodium bicarbonate 6 50 mg tablet RxNorm: 686182 Tablet(s) TAKE 2 TABL ETS BY MOUTH TWICE DAILY 06/23/2018 12/19/2018 Inactive 12/20/2017 9:10:59 AM Coumadin 1 mg tablet RxNorm: 616166 1 Tablet(s) PO daily 06/17/2018 07/07/2018 Inactive Coumadin 1 mg tablet RxNorm: 609713 1 Tablet(s) PO daily 06/17/2018 06/16/2018 Inactive clonazepam 0.5 mg ta blet RxNorm: 102724 1 Tablet(s) PO BID 06/08/2018 11/03/2018 Inactive spironolactone 25 mg tablet RxNorm: 586197 TAKE 1 TABLET BY MOUT H EVERY DAY 05/18/2018 05/12/2019 Ac tive Generic For:*ALDACTONE 25MG 05/18/2018 8:57:50 AM Carafate 1 gram tablet RxNorm: 274870 TAKE ONE TABLET BY MOUTH BEFORE MEALS AN D AT BEDTIME 05/18/2018 07/12/2018 Inactive Generic For:CARAFATE 1GM 1 07/18/2017 8:38:28 AM Synthroid 137 mcg ta blet RxNorm: 742797 TAKE 1 TABLET BY MOUT H ONCE DAILY 05/18/2018 08/30/2018 In active Generic For:SYNTHROID 137MCG TAB 2017 8:57:54 AM allopurinol 300 mg t ablet RxNorm: 483082 TAKE 1 TABLET BY MOUT H ONCE DAILY. 04/18/2018 10/14/2018 In active Generic For:ZYLOPRIM 300 MG TABLET 03/22 9:13:47 AM Lasix 20 mg tablet RxNorm: 441133 TAKE ONE TABLET BY MOUTH DAILY 04/18/2018 08/15/2018 In active Generic For:LASIX 20MG 04/18/2018 9:13: 50 AM Carafate 1 gram tablet RxNorm: 932491 TAKE ONE TABLET BY MOUTH BEFORE MEALS AN D AT BEDTIME 04/18/2018 05/17/2018 Inactive Generic For:CARAFATE 1GM 1 9:32:51 AM Coumadin 5 mg tablet RxNorm: 453819 TAKE 1 TABLET BY MOUTH DIRECTED 03/21/2018 07/07/2018 In active Generic For:COUMADIN 5MG TAB 03/21/2018 9:13:00 AM Carafate 1 gram tablet RxNorm: 193125 TAKE ONE TABLET BY MOUTH BEFORE MEALS AN D AT BEDTIME 03/21/2018 04/17/2018 Inactive Generic For:CARAFATE 1GM 1 9:14:24 AM Carafate 1 gram tablet RxNorm: 968935 1 Tablet(s) PO AC & HS 02/17/2018 03/20/2018 Inactive atenolol 100 mg tablet RxNorm: 458264 1 Tablet(s) PO daily 02/04/2018 09/01/2018 Inactive atenolol 50 mg tablet RxNorm: 019305 1 Tablet(s) PO daily 02/03/2018 02/03/2018 Inactive omeprazole 20 mg cap sean,delayed release RxNorm: 206059 1 Capsule(s) BID 01/21/2018 01/15/2019 In active Generic For:PRILOSEC 20MG 07/22/2017 8:5 8:20 AM Carafate 1 gram tablet RxNorm: 621856 1 Tablet(s) PO AC & HS 01/21/2018 02/16/2018 Inactive Carafate 1 gram tablet RxNorm: 968109 1 Tablet(s) PO AC & HS 01/18/2018 01/20/2018 Inactive Carafate 1 gram tablet RxNorm: 709732 1 Tablet(s) PO AC & HS 01/18/2018 02/27/2018 Inactive Carafate 1 gram tablet RxNorm: 949153 1 Tablet(s) PO AC & HS TAKE ONE TABLET B Y MOUTH TWICE DAILY 01/18/2018 05/17/2018 Inactive Generic For:CARAFATE 1GM 0 12/20/2017 9:10:56 AM omeprazole 20 mg cap sean,delayed release RxNorm: 769507 Capsule(s) TAKE 1 CAP SEAN BY MOUTH EVERY DAY 01/17/2018 01/20/2018 Inactive Generic For:PRILOSEC 20MG 0 07/22/2017 8:58:20 AM omeprazole 20 mg cap sean,delayed release RxNorm: 328553 Capsule(s) TAKE 1 CAP SEAN BY MOUTH EVERY DAY 01/14/2018 01/16/2018 Inactive Generic For:PRILOSEC 20MG 07/22/2017 8:58:20 AM clonazepam 0.5 mg ta blet RxNorm: 154871 1 Tablet(s) PO BID 01/07/2018 06/05/2018 Inactive Plavix 75 mg tablet RxNorm: 752851 1 Tablet(s) PO daily 01/07/2018 07/05/2018 Inactive Carafate 1 gram tablet RxNorm: 716321 1 Tablet(s) PO AC & HS 01/04/2018 01/17/2018 Inactive Lasix 20 mg tablet RxNorm: 529623 TAKE ONE TABLET BY MOUTH DAILY 12/20/2017 04/17/2018 In active Generic For:LASIX 20MG 12/20/2017 9:11: 03 AM sodium bicarbonate 6 50 mg tablet RxNorm: 704164 TAKE 2 TABLETS BY JAVON TH TWICE DAILY 12/20/2017 06/17/2018 In active 12/20/2017 9:10:59 AM Carafate 1 gram tablet RxNorm: 633848 TAKE ONE TABLET BY MOUTH TWICE DAILY 12/20/2017 01/17/2018 In active Generic For:CARAFATE 1GM 12/20/2017 9:1 0:56 AM Synthroid 137 mcg ta blet RxNorm: 333718 TAKE 1 TABLET BY MOUT H ONCE DAILY 11/19/2017 05/17/2018 In active Generic For:SYNTHROID 137MCG TAB 2017 8:58:04 AM Detrol LA 4 mg capsu le,extended release RxNorm: 187259 TAKE 1 CAPSULE BY JAVON TH ONCE DAILY 10/20/2017 04/13/2018 Inactive Generic For:DETROL LA 4MG C AP 10/20/2017 9:01:56 AM allopurinol 300 mg t ablet RxNorm: 202848 TAKE 1 TABLET BY MOUT H ONCE DAILY. 10/20/2017 04/17/2018 In active Generic For:ZYLOPRIM 300 MG TABLET 07/2017 9:01:59 AM Coumadin 5 mg tablet RxNorm: 895459 1 Tablet(s) PO UD 10/01/2017 03/20/2018 Inactive cyclobenzaprine 5 mg tablet RxNorm: 971127 1 Tablet(s) PO TID as needed myscle spasm 09/23/2017 10/12/2017 Inactive Lipitor 40 mg tablet RxNorm: 913289 TAKE 1 TABLET BY MOUTH ONCE DAILY 09/20/2017 07/28/2018 In active Generic For:LIPITOR 40MG 09/20/2017 8:5 6:04 AM atenolol 100 mg tablet RxNorm: 430548 1 Tablet(s) PO daily 08/30/2017 02/03/2018 Inactive atenolol 50 mg tablet RxNorm: 537371 1 Tablet(s) PO daily 08/30/2017 08/30/2017 Inactive Lovenox 30 mg/0.3 mL subcutaneous syringe RxNorm: 569883 0.3 Milliliter(s) SQ Q12H 08/24/2017 09/06/2017 In active Lasix 20 mg tablet RxNorm: 359376 TAKE ONE TABLET BY MOUTH DAILY 08/23/2017 12/19/2017 In active Generic For:LASIX 20MG 08/21/2017 9:04: 27 AM Synthroid 137 mcg ta blet RxNorm: 042968 TAKE 1 TABLET BY MOUT H ONCE DAILY 08/23/2017 11/18/2017 In active Generic For:SYNTHROID 137MCG TAB 2017 9:04:30 AM Lovenox 30 mg/0.3 mL subcutaneous syringe RxNorm: 499207 0.3 Milliliter(s) SQ Q12H 08/10/2017 08/23/2017 In active clonazepam 0.5 mg ta blet RxNorm: 357108 1 Tablet(s) PO BID 08/04/2017 12/30/2017 Inactive omeprazole 20 mg cap sean,delayed release RxNorm: 552125 TAKE 1 CAPSULE BY JAVON TH EVERY DAY 07/22/2017 01/13/2018 Inactive Generic For:PRILOSEC 20MG 07/22/2017 8: 58:20 AM Coumadin 4 mg tablet RxNorm: 087316 TAKE 1 TABLET BY MOUTH THREE TIMES PER [place] (WEDNESDAY, WEDNESDAY AND WEDNESDAY) 07/22/2017 10/03/2018 Inactive Generic For:COUMADIN 4MG 07/22/2017 8:58:26 AM Coumadin 4 mg tablet RxNorm: 267075 TAKE 1 TABLET BY MOUTH THREE TIMES PER [place] (WEDNESDAY, WEDNESDAY AND WEDNESDAY) 07/22/2017 02/16/2018 Inactive Generic For:COUMADIN 4MG 07/22/2017 8:58:26 AM sodium bicarbonate 6 50 mg tablet RxNorm: 791582 TAKE 2 TABLETS BY JAVON TH TWICE DAILY 06/22/2017 12/18/2017 In active 06/19/2017 12:23:30 PM venlafaxine ER 75 mg capsule,extended release 24 hr RxNorm: 258258 TAKE 1 CAPSULE BY MOUTH ONCE DAILY 06/22/2017 06/16/2018 Inactive Generic For:*EFFEXOR XR 75M G 06/19/2017 12:23:45 PM Coumadin 5 mg tablet RxNorm: 795720 1 Tablet(s) PO UD 06/01/2017 09/30/2017 Inactive Keflex 500 mg capsule RxNorm: 150511 1 Capsule(s) PO TID 05/27/2017 06/02/2017 Inactive Synthroid 137 mcg ta blet RxNorm: 879820 TAKE 1 TABLET BY MOUT H ONCE DAILY 05/24/2017 08/21/2017 In active Generic For:SYNTHROID 137MCG TAB 2016 8:55:59 AM Carafate 1 gram tablet RxNorm: 670731 TAKE ONE TABLET BY MOUTH TWICE DAILY 05/24/2017 12/19/2017 In active Generic For:CARAFATE 1GM 05/24/2017 8:5 5:54 AM spironolactone 25 mg tablet RxNorm: 132449 1 Tablet(s) PO daily 05/24/2017 05/17/2018 Inactive Detrol LA 4 mg capsu le,extended release RxNorm: 240606 1 Capsule(s) PO daily TAKE 1 CAPSULE BY MOUTH ONCE DAILY 05/10/2017 10/19/2017 Inactive Generic For:DETROL LA 4MG CAP 02/19/2017 2:36:00 PM Lasix 20 mg tablet RxNorm: 638579 TAKE ONE TABLET BY MOUTH DAILY 04/23/2017 08/20/2017 In active Generic For:LASIX 20MG 04/23/2017 9:04: 01 AM Coumadin 4 mg tablet RxNorm: 881857 TAKE 1 TABLET BY MOUTH THREE TIMES PER [place] (WEDNESDAY, WEDNESDAY AND WEDNESDAY) 04/23/2017 07/21/2017 Inactive Generic For:COUMADIN 4MG 04/23/2017 9:04:05 AM allopurinol 300 mg t ablet RxNorm: 770503 TAKE 1 TABLET BY MOUT H ONCE DAILY. 04/23/2017 10/19/2017 In active Generic For:ZYLOPRIM 300 MG TABLET 08/2016 9:03:57 AM potassium chloride 2 0 mEq/15 mL oral liquid RxNorm: 016088 Milliliter(s) 30 Milliliter(s) (40mEq) PO daily 03/24/2017 07/21/2017 Inactive Lovenox 30 mg/0.3 mL subcutaneous syringe RxNorm: 123242 0.3 Milliliter(s) SQ Q12H 03/22/2017 03/26/2017 In active Lovenox 30 mg/0.3 mL subcutaneous syringe RxNorm: 713933 0.3 Milliliter(s) SQ Q12H 03/19/2017 03/20/2017 In active Lovenox 30 mg/0.3 mL subcutaneous syringe RxNorm: 428894 0.3 Milliliter(s) SQ Q12H 03/16/2017 03/18/2017 In active clonazepam 0.5 mg ta blet RxNorm: 640260 1 Tablet(s) PO BID 03/02/2017 10/03/2018 Inactive Lovenox 30 mg/0.3 mL subcutaneous syringe RxNorm: 207777 1 injection SQ BID do NOT take the night time dose the day before surgery, or the morning dose the day of surgery 03/01/2017 03/07/2017 Inactive Lovenox 30 mg/0.3 mL subcutaneous syringe RxNorm: 189143 1 injection SQ BID 03/01/2017 02/28/2017 In active Detrol LA 4 mg capsu le,extended release RxNorm: 354679 TAKE 1 CAPSULE BY JAVON TH ONCE DAILY 02/19/2017 05/09/2017 Inactive Generic For:DETROL LA 4MG C AP 02/19/2017 2:36:00 PM hydrocodone 5 mg-humberto taminophen 325 mg tablet RxNorm: 334399 1-2 Tablet(s) PO Q6 P RN 02/04/2017 No Stop Date Active Zetia 10 mg tablet RxNorm: 281434 TAKE 1 TABLET BY MOUTH DAILY 01/25/2017 04/13/2018 Inactive 01/23/2017 9:03:48 AM omeprazole 20 mg cap sean,delayed release RxNorm: 342731 TAKE 1 CAPSULE BY JAVON TH EVERY DAY 01/25/2017 07/21/2017 Inactive Generic For:PRILOSEC 20MG 01/23/2017 9: 03:45 AM Coumadin 4 mg tablet RxNorm: 667740 TAKE 1 TABLET BY MOUTH THREE TIMES PER [place] (WEDNESDAY, WEDNESDAY AND WEDNESDAY) 01/25/2017 04/22/2017 Inactive Generic For:COUMADIN 4MG 01/23/2017 9:03:51 AM sodium bicarbonate 6 50 mg tablet RxNorm: 284535 TAKE 2 TABLETS BY JAVON TH TWICE DAILY 12/24/2016 06/21/2017 In active 12/24/2016 9:09:27 AM Lasix 20 mg tablet RxNorm: 299751 1 Tablet(s) PO daily 12/24/2016 04/22/2017 Inactive Synthroid 137 mcg ta blet RxNorm: 904537 TAKE 1 TABLET BY MOUT H ONCE DAILY 11/24/2016 05/22/2017 In active Generic For:SYNTHROID 137MCG TAB 2016 9:04:37 AM Coumadin 4 mg tablet RxNorm: 658478 TAKE 1 TABLET BY MOUTH THREE TIMES PER [place] (WEDNESDAY, WEDNESDAY AND WEDNESDAY) 11/24/2016 01/22/2017 Inactive Generic For:COUMADIN 4MG 11/24/2016 9:04:41 AM hydrocodone 5 mg-humberto taminophen 325 mg tablet RxNorm: 792797 1-2 Tablet(s) PO Q6 P RN 11/17/2016 02/03/2017 In active Carafate 1 gram tablet RxNorm: 674889 TAKE ONE TABLET BY MOUTH TWICE DAILY 10/27/2016 05/23/2017 In active Generic For:CARAFATE 1GM 10/26/2016 8:3 9:42 AM allopurinol 300 mg t ablet RxNorm: 869536 Tablet(s) TAKE 1 TABL ET BY MOUTH ONCE DAILY. 10/26/2016 04/22/2017 Inactive Lipitor 40 mg tablet RxNorm: 917709 1 Tablet(s) PO daily 09/25/2016 09/19/2017 Inactive Coumadin 4 mg tablet RxNorm: 972005 TAKE 1 TABLET BY MOUTH THREE TIMES PER [place] (WEDNESDAY, WEDNESDAY AND WEDNESDAY) 09/25/2016 11/23/2016 Inactive Generic For:COUMADIN 4MG 09/25/2016 8:55:58 AM Zetia 10 mg tablet RxNorm: 378601 1 Tablet(s) PO daily 09/25/2016 01/22/2017 Inactive gave 1 month of samples clonazepam 0.5 mg ta blet RxNorm: 021630 1 Tablet(s) PO BID 09/21/2016 10/03/2018 Inactive Lasix 20 mg tablet RxNorm: 317721 1 Tablet(s) PO daily 09/15/2016 12/23/2016 Inactive potassium chloride 2 0 mEq/15 mL oral liquid RxNorm: 601989 Milliliter(s) 30 Milliliter(s) (40mEq) PO daily 09/15/2016 01/12/2017 Inactive Lasix 20 mg tablet RxNorm: 203819 2 Tablet(s) PO daily 09/10/2016 09/12/2016 Inactive Lasix 20 mg tablet RxNorm: 435598 1 Tablet(s) PO daily 08/28/2016 08/30/2016 Inactive Lasix 20 mg tablet RxNorm: 180681 1 Tablet(s) PO daily 08/20/2016 08/22/2016 Inactive Detrol LA 4 mg capsu le,extended release RxNorm: 122171 TAKE 1 CAPSULE BY JAVON ONCE DAILY 07/27/2016 02/18/2017 Inactive Generic For:DETROL LA 4MG C AP 07/27/2016 9:08:27 AM Coumadin 4 mg tablet RxNorm: 498092 1 Tablet(s) PO 3 x week tue th and sun 07/27/2016 09/24/2016 In active omeprazole 20 mg cap sean,delayed release RxNorm: 229846 Capsule(s) PO TAKE 1 CAPSULE BY MOUTH ONCE DAILY 07/27/2016 01/22/2017 Inactive venlafaxine ER 75 mg capsule,extended release 24 hr RxNorm: 901054 1 Capsule(s) PO daily 06/29/2016 06/21/2017 Inactive sodium bicarbonate 6 50 mg tablet RxNorm: 251361 [facility] 06/29/2016 12/23/2016 In active 06/27/2016 9:05:39 AM Coumadin 4 mg tablet RxNorm: 100717 1 Tablet(s) PO 3 x week wed and sun 06/09/2016 06/08/2016 In active Coumadin 4 mg tablet RxNorm: 901752 1 Tablet(s) PO 3 x week wed and sun 06/09/2016 07/26/2016 In active Zetia 10 mg tablet RxNorm: 091181 1 Tablet(s) PO daily 06/09/2016 06/08/2016 Inactive gave 1 month of samples Zetia 10 mg tablet RxNorm: 787435 1 Tablet(s) PO daily 06/09/2016 09/24/2016 Inactive gave 1 month of samples Effexor 75 mg tablet RxNorm: 198335 1 Tablet(s) PO daily 06/08/2016 06/28/2016 Inactive spironolactone 25 mg tablet RxNorm: 005026 1 Tablet(s) PO daily 06/08/2016 05/23/2017 Inactive Synthroid 137 mcg ta blet RxNorm: 611899 1 Tablet(s) PO daily 05/07/2016 11/02/2016 Inactive allopurinol 300 mg t ablet RxNorm: 574192 Tablet(s) TAKE 1 TABL ET BY MOUTH ONCE DAILY. 04/28/2016 10/24/2016 Inactive clonazepam 0.5 mg ta blet RxNorm: 290197 1 Tablet(s) PO BID 04/20/2016 10/03/2018 Inactive Flonase Allergy Reli ef 50 mcg/actuation nasal spray,suspension RxNorm: 5029560 1 [place] NASAL BID 04/02/2016 No Stop Date Active Zithromax Z-Thomas 250 mg tablet RxNorm: 204108 Tablet(s) PO 04/02/2016 08/27/2016 Inactive cetirizine 10 mg tablet RxNorm: 1311794 1 Tablet(s) PO daily 04/02/2016 05/01/2016 Inactive Carafate 1 gram tablet RxNorm: 372074 Tablet(s) TAKE 1 TABLET TWICE A DAY FOR 30 DAYS 03/30/2016 10/25/2016 Inactive Generic For:CARAFATE 1GM 02/08/2015 12:3 6:39 PM Plavix 75 mg tablet RxNorm: 324131 1 Tablet(s) PO daily 03/11/2016 09/06/2016 Inactive sodium bicarbonate 6 50 mg tablet RxNorm: 241379 Tablet(s) 2 Tablet(s) PO BID 02/28/2016 06/26/2016 In active omeprazole 20 mg cap sean,delayed release RxNorm: 999189 Capsule(s) PO TAKE 1 CAPSULE BY MOUTH ONCE DAILY 01/31/2016 07/26/2016 Inactive Fish Oil 1,000 mg ca psule RxNorm: 1 Capsule(s) PO BID 01/14/2016 No Stop Date Active Synthroid 137 mcg ta blet RxNorm: 124939 1 Tablet(s) PO daily 01/14/2016 05/06/2016 Inactive Detrol LA 4 mg capsu le,extended release RxNorm: 269243 TAKE 1 CAPSULE BY JAVON TH ONCE DAILY 12/30/2015 07/26/2016 Inactive Generic For:DETROL LA 4MG C AP 12/30/2015 9:11:01 AM potassium chloride 2 0 mEq/15 mL oral liquid RxNorm: 650574 Milliliter(s) 30 Milliliter(s) (40mEq) PO daily 12/02/2015 03/30/2016 Inactive sodium bicarbonate 6 50 mg tablet RxNorm: 145086 Tablet(s) 2 Tablet(s) PO BID 10/31/2015 02/27/2016 In active Lipitor 40 mg tablet RxNorm: 395317 1 Tablet(s) PO daily 10/09/2015 09/24/2016 Inactive sodium bicarbonate 6 50 mg tablet RxNorm: 779470 2 Tablet(s) PO BID 10/01/2015 10/30/2015 Inactive allopurinol 300 mg t ablet RxNorm: 904632 TAKE 1 TABLET BY MOUT H ONCE DAILY. 10/01/2015 04/27/2016 In active Generic For:ZYLOPRIM 300 MG TABLET 09/19 9:21:15 AM clonazepam 0.5 mg ta blet RxNorm: 210539 1 Tablet(s) PO BID 09/30/2015 04/19/2016 Inactive Coumadin 5 mg tablet RxNorm: 141469 1 Tablet(s) PO daily 09/27/2015 05/31/2017 Inactive Generic For:COUMADIN 5MG TAB N O T I C E PRESCRIPTION PREVIOUSLY AUTHORIZED BY DOCTOR:BOBBY ZULETA Synthroid 125 mcg ta blet RxNorm: 644835 1 Tablet(s) PO daily 09/27/2015 09/26/2015 Inactive Synthroid 125 mcg ta blet RxNorm: 726028 1 Tablet(s) PO daily 09/27/2015 01/13/2016 Inactive Carafate 1 gram tablet RxNorm: 692839 Tablet(s) TAKE 1 TABLET TWICE A DAY FOR 30 DAYS 09/02/2015 03/29/2016 Inactive Generic For:CARAFATE 1GM 02/08/2015 12:3 6:39 PM sodium bicarbonate 6 50 mg tablet RxNorm: 093595 2 Tablet(s) PO BID 09/02/2015 09/30/2015 Inactive Prilosec 20 mg capsu le,delayed release RxNorm: 257780 TAKE 1 CAPSULE BY JAVON ONCE DAILY 08/02/2015 01/28/2016 Inactive Generic For:PRILOSEC 20MG 08/02/2015 10:03:09 AM N O T I C E PRESCRIPTION PREVIOUSLY AUTHORIZED BY DOCTOR:BOBBY ZULETA Zyrtec 10 mg capsule RxNorm: 0610617 1 Capsule(s) PO daily 07/15/2015 08/13/2015 Inactive Keflex 500 mg capsule RxNorm: 461699 1 Capsule(s) PO TID 07/15/2015 07/21/2015 Inactive cetirizine 10 mg cap sean RxNorm: 2674349 1 Capsule(s) PO daily 07/15/2015 08/13/2015 Inactive hydrocodone 5 mg-humberto taminophen 325 mg tablet RxNorm: 286140 1-2 Tablet(s) PO Q6 P RN 06/10/2015 11/16/2016 In active sodium bicarbonate 6 50 mg tablet RxNorm: 445955 2 Tablet(s) PO BID 06/03/2015 08/31/2015 Inactive Detrol LA 4 mg capsu le,extended release RxNorm: 877864 TAKE 1 CAPSULE BY JAVON TH ONCE DAILY 06/03/2015 12/29/2015 Inactive Generic For:DETROL LA 4MG C AP N O T I C E PRESCRIPTION PREVIOUSLY AUTHORIZED BY DOCTOR:BOBBY ZULETA atenolol 50 mg tablet RxNorm: 787746 1 Tablet(s) PO daily TAKE 1 TABLET BY MO UTH DAILY 05/07/2015 08/23/2017 Inactive Generic For:TENORMIN 50MG 05/04/2015 9:07:22 AM spironolactone 25 mg tablet RxNorm: 606419 1 Tablet(s) PO daily 05/06/2015 06/07/2016 Inactive venlafaxine ER 75 mg capsule,extended release 24 hr RxNorm: 937971 1 Capsule(s) PO daily 05/04/2015 06/28/2016 Inactive atenolol 50 mg tablet RxNorm: 512917 TAKE 1 TABLET BY MOUTH DAILY 05/04/2015 05/06/2015 Inactive Generic For:TENORMIN 50MG 05/04/2015 9: 07:22 AM Synthroid 150 mcg ta blet RxNorm: 913800 TAKE 1 TABLET BY MOUT H ONCE DAILY. 04/05/2015 09/26/2015 In active Generic For:SYNTHROID 150MCG TAB 2014 4:45:40 PM N O T I C E PRESCRIPTION PREVIOUSLY AUTHORIZED BY DOCTOR:BOBBY ZULETA Effexor 75 mg tablet RxNorm: 614753 1 Tablet(s) PO daily 04/05/2015 07/03/2015 Inactive Coumadin 5 mg tablet RxNorm: 126896 TAKE 1 AND 1/2 TABLETS BY MOUTH ONCE MYRANDA LY 04/04/2015 09/26/2015 In active Generic For:COUMADIN 5MG TAB N O T I C E PRESCRIPTION PREVIOUSLY AUTHORIZED BY DOCTOR:BOBBY ZULETA clonazepam 0.5 mg ta blet RxNorm: 196297 1 Tablet(s) PO BID 03/13/2015 11/05/2015 Inactive sodium bicarbonate 6 50 mg tablet RxNorm: 053918 2 Tablet(s) PO BID 03/08/2015 06/02/2015 Inactive allopurinol 300 mg t ablet RxNorm: 262082 TAKE 1 TABLET BY MOUT H ONCE DAILY. 03/05/2015 09/30/2015 In active N O T I C E PRESCRIPTION PREVIOUSLY A UTHORIZED BY DOCTOR:BOBBY ZULETA Plavix 75 mg tablet RxNorm: 085492 1 Tablet(s) PO daily 02/12/2015 09/09/2015 Inactive clonazepam 0.5 mg ta blet RxNorm: 408658 1 Tablet(s) PO BID 02/11/2015 03/11/2015 Inactive Carafate 1 gram tablet RxNorm: 014184 TAKE 1 TABLET TWICE A DAY FOR 30 DAYS 02/08/2015 02/07/2015 In active Generic For:CARAFATE 1GM 02/08/2015 12:3 6:39 PM Carafate 1 gram tablet RxNorm: 086644 Tablet(s) TAKE 1 TABLET TWICE A DAY FOR 30 DAYS 02/08/2015 09/01/2015 Inactive Generic For:CARAFATE 1GM 02/08/2015 12:3 6:39 PM potassium chloride 2 0 mEq/15 mL oral liquid RxNorm: 825052 30 Milliliter(s) (40m Eq) PO daily 02/05/2015 12/01/2015 Inactive atenolol 50 mg tablet RxNorm: 199272 1 Tablet(s) PO daily 02/04/2015 05/03/2015 Inactive [SAVINGS FOR NON-COVERED DRUGS -- BIN:00 2602, PCN: [email or web address], Group: XXXXX, ID# [id number], Questions: . THIS IS NOT INSURANCE.] potassium chloride 2 0 mEq/15 mL oral liquid RxNorm: 298251 30 Milliliter(s) (40m Eq) PO daily 01/08/2015 02/04/2015 Inactive potassium chloride 2 0 mEq/15 mL oral liquid RxNorm: 751759 30 Milliliter(s) (40m Eq) PO daily 12/07/2014 01/07/2015 Inactive atenolol 50 mg tablet RxNorm: 253405 1 Tablet(s) PO daily 11/09/2014 11/08/2014 Inactive atenolol 50 mg tablet RxNorm: 419863 1 Tablet(s) PO daily 11/09/2014 02/03/2015 Inactive [SAVINGS FOR NON-COVERED DRUGS -- BIN:00 2695, PCN: [email or web address], Group: XXXXX, ID# [id number], Questions: . THIS IS NOT INSURANCE.] Voltaren 1 % topical gel RxNorm: 523158 TOP No St art Date Active verapamil ER (HS) 24 0 mg tablet,extended release 24 hr RxNorm: 492086 1 Tablet(s) PO daily No Start Date Active aspirin 81 mg tablet RxNorm: 868499 1 Tablet(s) PO daily No Start Date Active Zofran 4 mg tablet RxNorm: 625964 1 Tablet(s) PO PRN No Start Date Active B12 1000 mcg RxNorm: 1 Tablet(s) PO daily No Start Date Active magnesium oxide 400 mg capsule RxNorm: 397454 2 Capsule(s) PO BID No Start Date Active Synthroid 150 mcg ta blet RxNorm: 561138 1 Tablet(s) PO daily No Start Date 04/04/2015 Inactive Coumadin 5 mg tablet RxNorm: 522597 1 Tablet(s) PO daily No Start Date 04/03/2015 Inactive cranberry 1,000 mg c apsule RxNorm: 315726 1 Capsule(s) PO daily No Start Date 04/13/2018 Inactive allopurinol 300 mg t ablet RxNorm: 502935 1 Tablet(s) PO daily No Start Date 03/04/2015 Inactive Prilosec 20 mg capsu le,delayed release RxNorm: 950984 1 Capsule(s) PO PRN No Start Date 08/01/2015 Inactive potassium chloride 2 0 mEq/15 mL oral liquid RxNorm: 395867 30 Milliliter(s) (40m Eq) PO daily No Start Date 12/06/2014 Inactive atenolol 50 mg tablet RxNorm: 699773 1 Tablet(s) PO daily No Start Date 08/29/2017 Inactive Lipitor 40 mg tablet RxNorm: 250949 1 Tablet(s) PO daily No Start Date 09/19/2017 Inactive Effexor 75 mg tablet RxNorm: 396379 1 Tablet(s) PO daily No Start Date 04/04/2015 Inactive Carafate 1 gram tablet RxNorm: 219649 1 Tablet(s) PO BID No Start Date 02/07/2015 Inactive clonazepam 0.5 mg ta blet RxNorm: 332700 1 Tablet(s) PO BID No Start Date 02/10/2015 Inactive Plavix 75 mg tablet RxNorm: 053563 1 Tablet(s) PO daily No Start Date 02/11/2015 Inactive sodium bicarbonate 6 50 mg tablet RxNorm: 576765 2 Tablet(s) PO BID No Start Date 09/01/2015 Inactive Lovenox 30 mg/0.3 mL subcutaneous syringe RxNorm: 553335 0.3 Milliliter(s) SQ Q12H No Start Date 03/15/2017 Inactive Fish Oil 1,000 mg ca psule RxNorm: 1 Capsule(s) PO daily No Start Date 01/13/2016 Inactive Detrol LA 4 mg capsu le,extended release RxNorm: 900069 1 Capsule(s) PO daily No Start Date 06/02/2015 Inactive Medication Administered Medication Codes Instruc tions Start Date Status Kenalog 40 mg/mL suspension for injection RxNorm: 4134622 Milliliter 09/02/2018 No longer Active Immunizations Vaccine Codes Date Status SHINGARIX CVX: 121 03/23 completed Assessments Condition Codes Effectiv e Dates Mixed hyperlipidemia ICD-10: E78.2 ICD-9: 272.4 10/05/2018 Other acute sinusitis ICD-10: J01.80 ICD-9: 461.8 09/02/2018 Other allergic rhinitis ICD-10: J30. 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 ICD-9: [...] Code Item Item Code Result Date Pt Pyf8783 PT 27.4 seconds 01/27/2019 Pt Aol0053 INR 2.6 01/27/2019 Pt Lut9468 Low Intensity - 1.5-2.0 01/27/2019 Pt Lnw8377 Mod intensity - 2.0-3.0 01/27/2019 Pt Lph7385 Hi intensity - 3.0-4.0 01/27/2019 Pt Ycl5402 PT 21.8 seconds 12/15/2018 Pt Asz3438 INR 2.0 12/15/2018 Pt Sil6862 Low Intensity - 1.5-2.0 12/15/2018 Pt Sij7821 Mod intensity - 2.0-3.0 12/15/2018 Pt Usz6621 Hi intensity - 3.0-4.0 12/15/2018 Pt Vpc4777 PT 24.4 seconds 12/09/2018 Pt Fyh7634 INR 2.2 12/09/2018 Pt Ocv6708 Low Intensity - 1.5-2.0 12/09/2018 Pt Bdd0217 Mod intensity - 2.0-3.0 12/09/2018 Pt Wik4290 Hi intensity - 3.0-4.0 12/09/2018 Pt Irk3446 PT 35.0 seconds 12/01/2018 Pt Efc0971 INR 3.5 12/01/2018 Pt Kgr2910 Low Intensity - 1.5-2.0 12/01/2018 Pt Vza9194 Mod intensity - 2.0-3.0 12/01/2018 Pt Wnd4438 Hi intensity - 3.0-4.0 12/01/2018 Pt Hzl2175 PT 26.3 seconds 10/13/2018 Pt Irm8445 INR 2.5 10/13/2018 Pt Vrx4222 Low Intensity - 1.5-2.0 10/13/2018 Pt Uez6982 Mod intensity - 2.0-3.0 10/13/2018 Pt Ktf8686 Hi intensity - 3.0-4.0 10/13/2018 Lipid Ord30 CHOL 180 mg/dL 10/07/2018 Lipid Ord30 HDL 74.0 mg/dl 10/07/2018 Lipid Ord30 TRIG 111 mg/dL 10/07/2018 Lipid Ord30 LDL 84 mg/dL 10/07/2018 Lipid Ord30 C/HDL 2.4 Ratio 10/07/2018 Pt Nwk5637 PT 38.1 seconds 10/07/2018 Pt Joz2445 INR 3.9 10/07/2018 Pt Rfh0118 Low Intensity - 1.5-2.0 10/07/2018 Pt Qoj9732 Mod intensity - 2.0-3.0 10/07/2018 Pt Bug0605 Hi intensity - 3.0-4.0 10/07/2018 Tsh Ord6 TSH (3rd IS) 0.43 uIU/mL 09/02/2018 Comp Metabolic Mhg555 NA 136 mEq/L 09/02/2018 Comp Metabolic Erg528 K 4.1 mEq/L 09/02/2018 Comp Metabolic Sbx267 CL 103 mEq/L 09/02/2018 Comp Metabolic Ykd879 CO2 20.0 mEq/L 09/02/2018 Comp Metabolic Qpv772 AN ION GAP 17 09/02/2018 Comp Metabolic Zud716 GL UCOSE 124 mg/dL 09/02/2018 Comp Metabolic Hne012 Cr eat 1.0 mg/dL 09/02/2018 Comp Metabolic Thi989 eG FR 57 ml/min/1.73m2 09/02 Comp Metabolic Hvj202 BUN 24 mg/dL 09/02/2018 Comp Metabolic Irc855 B/ C Ratio 23.8 Ratio 09/02/2018 Comp Metabolic Yuj237 CA LCIUM 9.5 mg/dL 09/02/2018 Comp Metabolic Bnn456 AL K PHOS 64 U/L 09/02/2018 Comp Metabolic Vwl501 T(SGOT) 24 U/L 09/02/2018 Comp Metabolic Dhl097 AL T(SGPT) 23 U/L 09/02/2018 Comp Metabolic Own944 BI LI T 0.5 mg/dL 09/02/2018 Comp Metabolic Rkr689 AL BUMIN 4.2 g/dL 09/02/2018 Comp Metabolic Dzd668 TP RO 7.4 g/dL 09/02/2018 Comp Metabolic Lcb077 GL OB 3.2 g/dL 09/02/2018 Comp Metabolic Zmy027 A/ G Ratio 1.3 Ratio 09/02/2018 Comp Metabolic Lqj901 Os mo 277 mOsmo 09/02/2018 Pt Ttv9382 PT 40.6 seconds 09/02/2018 Pt Uaa2917 INR 4.2 09/02/2018 Pt Cab8305 Low Intensity - 1.5-2.0 09/02/2018 Pt Rko3854 Mod intensity - 2.0-3.0 09/02/2018 Pt Ukd9379 Hi intensity - 3.0-4.0 09/02/2018 Free T4 Esk202 FREE T4 1.51 ng/dL 09/02/2018 Magnesium Ord90 Mag 1.8 mg/dL 09/02/2018 Pt Zot8913 PT 29.2 seconds 08/05/2018 Pt Wxt1540 INR 2.8 08/05/2018 Pt Roh7619 Low Intensity - 1.5-2.0 08/05/2018 Pt Zbd7171 Mod intensity - 2.0-3.0 08/05/2018 Pt Rsj2117 Hi intensity - 3.0-4.0 08/05/2018 Pt Dyt7588 PT 30.2 seconds 07/25/2018 Pt Exu9344 INR 2.9 07/25/2018 Pt Nce5116 Low Intensity - 1.5-2.0 07/25/2018 Pt Kpq0479 Mod intensity - 2.0-3.0 07/25/2018 Pt Vvo7216 Hi intensity - 3.0-4.0 07/25/2018 Pt Pnx5227 PT 25.2 seconds 07/19/2018 Pt Osb0905 INR 2.3 07/19/2018 Pt Shs9565 Low Intensity - 1.5-2.0 07/19/2018 Pt Upc6933 Mod intensity - 2.0-3.0 07/19/2018 Pt Pio4551 Hi intensity - 3.0-4.0 07/19/2018 Pt Rid4463 PT 17.4 seconds 07/15/2018 Pt Hjs8214 INR 1.5 07/15/2018 Pt Rcw7608 Low Intensity - 1.5-2.0 07/15/2018 Pt Jrv4932 Mod intensity - 2.0-3.0 07/15/2018 Pt Qqq8736 Hi intensity - 3.0-4.0 07/15/2018 Pt Vuf8741 PT 17.8 seconds 07/08/2018 Pt Xzv5559 INR 1.5 07/08/2018 Pt Thm6645 Low Intensity - 1.5-2.0 07/08/2018 Pt Rho4748 Mod intensity - 2.0-3.0 07/08/2018 Pt Kpy1749 Hi intensity - 3.0-4.0 07/08/2018 Pt Afq2815 PT 19.2 seconds 07/01/2018 Pt Sgj4107 INR 1.7 07/01/2018 Pt Ejp3913 Low Intensity - 1.5-2.0 07/01/2018 Pt Odt4117 Mod intensity - 2.0-3.0 07/01/2018 Pt Gcc1218 Hi intensity - 3.0-4.0 07/01/2018 Pt Mss5892 PT 17.4 seconds 06/23/2018 Pt Wsp4647 INR 1.5 06/23/2018 Pt Pka1614 Low Intensity - 1.5-2.0 06/23/2018 Pt Pok7936 Mod intensity - 2.0-3.0 06/23/2018 Pt Kzo7543 Hi intensity - 3.0-4.0 06/23/2018 Pt Pjv8745 PT 18.4 seconds 06/17/2018 Pt Soj5969 INR 1.6 06/17/2018 Pt Rua5742 Low Intensity - 1.5-2.0 06/17/2018 Pt Dpn7070 Mod intensity - 2.0-3.0 06/17/2018 Pt Oag6232 Hi intensity - 3.0-4.0 06/17/2018 Sed Rate [...] 30.4 pg 06/08/2018 Cbc With Differential Ord2 Knott% 9.4 % 06/08/2018 Cbc With Differential Ord2 [...] 1.20 K/ul 06/08/2018 Cbc With Differential Ord2 Knott ABS# 0.5 K/ul 06/08/2018 Cbc With Differential Ord2 Eos ABS# 0.1 K/ul 06/08/2018 Cbc With Differential Ord2 Baso ABS# 0.1 K/ul 06/08/2018 C-Reactive Protein Qnt Crqnt CRP 0.1 mg/dl 06/08/2018 Pt Mch2416 PT 17.6 seconds 06/08/2018 Pt Zof4583 INR 1.5 06/08/2018 Pt Wtv8237 Low Intensity - 1.5-2.0 06/08/2018 Pt Whf9832 Mod intensity - 2.0-3.0 06/08/2018 Pt Mcq6990 Hi intensity - 3.0-4.0 06/08/2018 Pt Gvp4713 PT 16.8 seconds 05/10/2018 Pt Uls0427 INR 1.4 05/10/2018 Pt Rxt4196 Low Intensity - 1.5-2.0 05/10/2018 Pt Osk0852 Mod intensity - 2.0-3.0 05/10/2018 Pt Owj0707 Hi intensity - 3.0-4.0 05/10/2018 Pt Nvd2129 PT 16.7 seconds 05/04/2018 Pt Wfm4951 INR 1.4 05/04/2018 Pt Qme5968 Low Intensity - 1.5-2.0 05/04/2018 Pt Tij0119 Mod intensity - 2.0-3.0 05/04/2018 Pt Hee5963 Hi intensity - 3.0-4.0 05/04/2018 Free T4 Xwv865 FREE T4 1.09 ng/dL 04/14/2018 Tsh Ord6 TSH (3rd IS) 2.36 uIU/mL 04/14/2018 Pt Kiz1457 PT 20.3 seconds 04/14/2018 Pt Hrb4388 INR 1.8 04/14/2018 Pt Zaw4676 Low Intensity - 1.5-2.0 04/14/2018 Pt Qkq5913 Mod intensity - 2.0-3.0 04/14/2018 Pt Aid6710 Hi intensity - 3.0-4.0 04/14/2018 Lipid Ord30 CHOL 149 mg/dL 04/14/2018 Lipid Ord30 HDL 49.0 mg/dl 04/14/2018 Lipid Ord30 TRIG 161 mg/dL 04/14/2018 Lipid Ord30 LDL 68 mg/dL 04/14/2018 Lipid Ord30 C/HDL 3.0 Ratio 04/14/2018 %Hba1C Fws571 % HbA1c 30069-7 5.9 % 04/14/2018 %Hba1C Mwi221 Gluc Ave 123 mg/dL 04/14/2018 Comp Metabolic Nxn535 NA 140 mEq/L 04/14/2018 Comp Metabolic Zsx935 K 4.1 mEq/L 04/14/2018 Comp Metabolic Jtt314 CL 105 mEq/L 04/14/2018 Comp Metabolic Tyi952 CO2 28.0 mEq/L 04/14/2018 Comp Metabolic Mab303 AN ION GAP 11 04/14/2018 Comp Metabolic Nzd232 GL UCOSE 112 mg/dL 04/14/2018 Comp Metabolic Hfo198 Cr eat 1.0 mg/dL 04/14/2018 Comp Metabolic Aes143 eG FR 58 ml/min/1.73m2 04/14 Comp Metabolic Ysr063 BUN 20 mg/dL 04/14/2018 Comp Metabolic Gel038 B/ C Ratio 20.2 Ratio 04/14/2018 Comp Metabolic Dkk008 CA LCIUM 10.0 mg/dL 04/14/2018 Comp Metabolic Vds251 AL K PHOS 51 U/L 04/14/2018 Comp Metabolic Suw762 T(SGOT) 24 U/L 04/14/2018 Comp Metabolic Pbm859 AL T(SGPT) 21 U/L 04/14/2018 Comp Metabolic Kot869 BI LI T 0.8 mg/dL 04/14/2018 Comp Metabolic Ruz164 AL BUMIN 4.2 g/dL 04/14/2018 Comp Metabolic Cds763 TP RO 7.1 g/dL 04/14/2018 Comp Metabolic Ktw989 GL OB 2.9 g/dL 04/14/2018 Comp Metabolic Izl482 A/ G Ratio 1.5 Ratio 04/14/2018 Comp Metabolic Fhq853 Os mo 283 mOsmo 04/14/2018 Cbc With [...] 30.7 pg 04/14/2018 Cbc With Differential Ord2 Knott% 10.6 % 04/14/2018 Cbc With Differential Ord2 [...] 1.18 K/ul 04/14/2018 Cbc With Differential Ord2 Knott ABS# 0.5 K/ul 04/14/2018 Cbc With Differential Ord2 Eos ABS# 0.2 K/ul 04/14/2018 Cbc With Differential Ord2 Baso ABS# 0.1 K/ul 04/14/2018 Pt Emj1633 PT 29.3 seconds 02/11/2018 Pt Ldt0635 INR 2.8 02/11/2018 Pt Fwz8005 Low Intensity - 1.5-2.0 02/11/2018 Pt Nlt1891 Mod intensity - 2.0-3.0 02/11/2018 Pt Ydo7690 Hi intensity - 3.0-4.0 02/11/2018 Comp Metabolic Xuw642 NA 141 mEq/L 01/05/2018 Comp Metabolic Pnk458 K 3.7 mEq/L 01/05/2018 Comp Metabolic Wed146 CL 102 mEq/L 01/05/2018 Comp Metabolic Hvh775 CO2 29.0 mEq/L 01/05/2018 Comp Metabolic Xme953 AN ION GAP 14 01/05/2018 Comp Metabolic Xpt975 GL UCOSE 136 mg/dL 01/05/2018 Comp Metabolic Jvh113 Cr eat 1.0 mg/dL 01/05/2018 Comp Metabolic Gnb627 eG FR 61 ml/min/1.73m2 01/05 Comp Metabolic Gyq585 BUN 22 mg/dL 01/05/2018 Comp Metabolic Jux536 B/ C Ratio 22.9 Ratio 01/05/2018 Comp Metabolic Xvq746 CA LCIUM 9.7 mg/dL 01/05/2018 Comp Metabolic Hpa652 AL K PHOS 57 U/L 01/05/2018 Comp Metabolic Nsq314 T(SGOT) 21 U/L 01/05/2018 Comp Metabolic Lwx671 AL T(SGPT) 19 U/L 01/05/2018 Comp Metabolic Cua588 BI LI T 0.9 mg/dL 01/05/2018 Comp Metabolic Jgq267 AL BUMIN 4.1 g/dL 01/05/2018 Comp Metabolic Lwu120 TP RO 7.1 g/dL 01/05/2018 Comp Metabolic Vym834 GL OB 3.0 g/dL 01/05/2018 Comp Metabolic Gvc037 A/ G Ratio 1.4 Ratio 01/05/2018 Comp Metabolic Goh369 Os mo 287 mOsmo 01/05/2018 Free T4 Uxq762 FREE T4 1.05 ng/dL 01/05/2018 %Hba1C Mqd188 % HbA1c 13172-6 6.0 % 01/05/2018 %Hba1C Voa919 Gluc Ave 126 mg/dL 01/05/2018 Cbc With [...] 30.6 pg 01/05/2018 Cbc With Differential Ord2 Knott% 10.5 % 01/05/2018 Cbc With Differential Ord2 [...] 1.27 K/ul 01/05/2018 Cbc With Differential Ord2 Knott ABS# 0.5 K/ul 01/05/2018 Cbc With Differential Ord2 Eos ABS# 0.2 K/ul 01/05/2018 Cbc With Differential Ord2 Baso ABS# 0.1 K/ul 01/05/2018 Pt Foc4853 PT 20.7 seconds 01/05/2018 Pt Xkj4063 INR 1.8 01/05/2018 Pt Kyz2211 Low Intensity - 1.5-2.0 01/05/2018 Pt Qvo7231 Mod intensity - 2.0-3.0 01/05/2018 Pt Xyq6157 Hi intensity - 3.0-4.0 01/05/2018 Tsh Ord6 TSH (3rd IS) 2.34 uIU/mL 01/05/2018 Lipid Ord30 CHOL 156 mg/dL 01/05/2018 Lipid Ord30 HDL 48.0 mg/dl 01/05/2018 Lipid Ord30 TRIG 207 mg/dL 01/05/2018 Lipid Ord30 LDL 67 mg/dL 01/05/2018 Lipid Ord30 C/HDL 3.3 Ratio 01/05/2018 Pt Edb2989 PT 28.3 seconds 11/26/2017 Pt Iul1380 INR 2.6 11/26/2017 Pt Fny7501 Low Intensity - 1.5-2.0 11/26/2017 Pt Nmc5754 Mod intensity - 2.0-3.0 11/26/2017 Pt Owk3093 Hi intensity - 3.0-4.0 11/26/2017 Pt Frl6511 PT 36.5 seconds 11/19/2017 Pt Hwo6614 INR 3.6 11/19/2017 Pt Hht0309 Low Intensity - 1.5-2.0 11/19/2017 Pt Oyf8222 Mod intensity - 2.0-3.0 11/19/2017 Pt Xzy5306 Hi intensity - 3.0-4.0 11/19/2017 Pt Mps5519 PT 22.9 seconds 10/15/2017 Pt Ozm6711 INR 2.0 10/15/2017 Pt Xnj3408 Low Intensity - 1.5-2.0 10/15/2017 Pt Mev6377 Mod intensity - 2.0-3.0 10/15/2017 Pt Nze4847 Hi intensity - 3.0-4.0 10/15/2017 Pt Nbv3913 PT 25.9 seconds 10/01/2017 Pt Gfq8918 INR 2.4 10/01/2017 Pt Uqw2034 Low Intensity - 1.5-2.0 10/01/2017 Pt Wla8186 Mod intensity - 2.0-3.0 10/01/2017 Pt Bdq1525 Hi intensity - 3.0-4.0 10/01/2017 Pt Ect6557 PT 20.6 seconds 09/24/2017 Pt Iaf6882 INR 1.8 09/24/2017 Pt Gzx0178 Low Intensity - 1.5-2.0 09/24/2017 Pt Dyg0509 Mod intensity - 2.0-3.0 09/24/2017 Pt Ijx9068 Hi intensity - 3.0-4.0 09/24/2017 Pt Exk7677 PT 21.0 seconds 09/15/2017 Pt Wae8700 INR 1.8 09/15/2017 Pt Yla7018 Low Intensity - 1.5-2.0 09/15/2017 Pt Zli4447 Mod intensity - 2.0-3.0 09/15/2017 Pt Rbj5832 Hi intensity - 3.0-4.0 09/15/2017 Pt Iac1303 PT 19.0 seconds 09/03/2017 Pt Bpl1639 INR 1.6 09/03/2017 Pt Lmz1409 Low Intensity - 1.5-2.0 09/03/2017 Pt Agn2617 Mod intensity - 2.0-3.0 09/03/2017 Pt Ykn4424 Hi intensity - 3.0-4.0 09/03/2017 Pt Ekk1213 PT 17.6 seconds 08/23/2017 Pt Osi8134 INR 1.5 08/23/2017 Pt Kjm6601 Low Intensity - 1.5-2.0 08/23/2017 Pt Amb8154 Mod intensity - 2.0-3.0 08/23/2017 Pt Uho6265 Hi intensity - 3.0-4.0 08/23/2017 Pt Bob0079 PT 12.7 seconds 08/20/2017 Pt Deu5118 INR 1.0 08/20/2017 Pt Chu4657 Low Intensity - 1.5-2.0 08/20/2017 Pt Iba3966 Mod intensity - 2.0-3.0 08/20/2017 Pt Jiu8313 Hi intensity - 3.0-4.0 08/20/2017 Pt Cdf5983 PT 12.9 seconds 08/17/2017 Pt Jyh1402 INR 1.0 08/17/2017 Pt Wsw4675 Low Intensity - 1.5-2.0 08/17/2017 Pt Gaw6957 Mod intensity - 2.0-3.0 08/17/2017 Pt Idr3556 Hi intensity - 3.0-4.0 08/17/2017 Pt Few8808 PT 18.5 seconds 08/10/2017 Pt Hac2794 INR 1.6 08/10/2017 Pt Aix7674 Low Intensity - 1.5-2.0 08/10/2017 Pt Clm8181 Mod intensity - 2.0-3.0 08/10/2017 Pt Ecd4354 Hi intensity - 3.0-4.0 08/10/2017 Tsh Ord6 [...] 29.3 pg 05/27/2017 Cbc With Differential Ord2 Knott% 8.1 % 05/27/2017 Cbc With Differential Ord2 [...] 1.11 K/ul 05/27/2017 Cbc With Differential Ord2 Knott ABS# 0.6 K/ul 05/27/2017 Cbc With Differential Ord2 Eos ABS# 0.2 K/ul 05/27/2017 Cbc With Differential Ord2 Baso ABS# 0.1 K/ul 05/27/2017 Pt Duj3837 PT 28.2 seconds 05/27/2017 Pt Jpz9632 INR 2.6 05/27/2017 Pt Fsd6423 Low Intensity - 1.5-2.0 05/27/2017 Pt Eyu2496 Mod intensity - 2.0-3.0 05/27/2017 Pt Btn3738 Hi intensity - 3.0-4.0 05/27/2017 Lipid Ord30 CHOL 167 mg/dL 05/27/2017 Lipid Ord30 HDL 49.0 mg/dl 05/27/2017 Lipid Ord30 TRIG 347 mg/dL 05/27/2017 Lipid Ord30 LDL 49 mg/dL 05/27/2017 Lipid Ord30 C/HDL 3.4 Ratio 05/27/2017 Magnesium Ord90 Mag 1.4 mg/dL 05/27/2017 %Hba1C Fku055 % HbA1c 25151-1 5.9 % 05/27/2017 %Hba1C Cys888 Gluc Ave 123 mg/dL 05/27/2017 Comp Metabolic Ewh907 NA 138 mEq/L 05/27/2017 Comp Metabolic Any133 K 4.1 mEq/L 05/27/2017 Comp Metabolic Bmf844 CL 101 mEq/L 05/27/2017 Comp Metabolic Qxi797 CO2 31.0 mEq/L 05/27/2017 Comp Metabolic Bmt810 AN ION GAP 10 05/27/2017 Comp Metabolic Ubm204 GL UCOSE 117 mg/dL 05/27/2017 Comp Metabolic Dpj268 Cr eat 0.9 mg/dL 05/27/2017 Comp Metabolic Fmt325 eG FR 62 ml/min/1.73m2 05/27 Comp Metabolic Oku986 BUN 25 mg/dL 05/27/2017 Comp Metabolic Dev507 B/ C Ratio 26.6 Ratio 05/27/2017 Comp Metabolic Xtb857 CA LCIUM 9.5 mg/dL 05/27/2017 Comp Metabolic Gwu322 AL K PHOS 73 U/L 05/27/2017 Comp Metabolic Fpt314 T(SGOT) 18 U/L 05/27/2017 Comp Metabolic Gtr647 AL T(SGPT) 12 U/L 05/27/2017 Comp Metabolic Pjy825 BI LI T 0.5 mg/dL 05/27/2017 Comp Metabolic Dev941 AL BUMIN 4.1 g/dL 05/27/2017 Comp Metabolic Psr846 TP RO 7.1 g/dL 05/27/2017 Comp Metabolic Tlb954 GL OB 3.0 g/dL 05/27/2017 Comp Metabolic Yan935 A/ G Ratio 1.3 Ratio 05/27/2017 Comp Metabolic Wof381 Os mo 281 mOsmo 05/27/2017 Free T4 Aeq795 FREE T4 0.91 ng/dL 05/27/2017 Pt Gnb7440 PT 29.2 seconds 04/16/2017 Pt Slo7694 INR 2.7 04/16/2017 Pt Epc4998 Low Intensity - 1.5-2.0 04/16/2017 Pt Zod8227 Mod intensity - 2.0-3.0 04/16/2017 Pt Tbv8563 Hi intensity - 3.0-4.0 04/16/2017 Pt Ygp4556 PT 30.7 seconds 03/31/2017 Pt Ffx5331 INR 2.9 03/31/2017 Pt Znn8255 Low Intensity - 1.5-2.0 03/31/2017 Pt Aaa1672 Mod intensity - 2.0-3.0 03/31/2017 Pt Ces4177 Hi intensity - 3.0-4.0 03/31/2017 Pt Klp3040 PT 21.3 seconds 03/26/2017 Pt Tog9023 INR 1.9 03/26/2017 Pt Rbr4732 Low Intensity - 1.5-2.0 03/26/2017 Pt Tyz2456 Mod intensity - 2.0-3.0 03/26/2017 Pt Fch8244 Hi intensity - 3.0-4.0 03/26/2017 Pt Tod0215 PT 19.8 seconds 03/22/2017 Pt Ryw5276 INR 1.7 03/22/2017 Pt Isz1087 Low Intensity - 1.5-2.0 03/22/2017 Pt Mct3137 Mod intensity - 2.0-3.0 03/22/2017 Pt Cgg3138 Hi intensity - 3.0-4.0 03/22/2017 Pt Bun3950 PT 15.6 seconds 03/19/2017 Pt Mqz9839 INR 1.3 03/19/2017 Pt Cbh6059 Low Intensity - 1.5-2.0 03/19/2017 Pt Qdh2046 Mod intensity - 2.0-3.0 03/19/2017 Pt Grc6549 Hi intensity - 3.0-4.0 03/19/2017 Pt Yqv5133 PT 13.7 seconds 03/15/2017 Pt Mmo4131 INR 1.1 03/15/2017 Pt Vua8163 Low Intensity - 1.5-2.0 03/15/2017 Pt Vlx2547 Mod intensity - 2.0-3.0 03/15/2017 Pt Qsz8075 Hi intensity - 3.0-4.0 03/15/2017 Pt Qhz8907 PT 25.8 seconds 01/28/2017 Pt Gda2414 INR 2.4 01/28/2017 Pt Fgu8837 Low Intensity - 1.5-2.0 01/28/2017 Pt Iyh4660 Mod intensity - 2.0-3.0 01/28/2017 Pt Cpt0056 Hi intensity - 3.0-4.0 01/28/2017 %Hba1C Xwn770 % HbA1c 57204-8 6.4 % 10/23/2016 %Hba1C Qmq179 Gluc Ave 137 mg/dL 10/23/2016 Comp Metabolic Frw235 NA 138 mEq/L 10/23/2016 Comp Metabolic Bow436 K 3.4 mEq/L 10/23/2016 Comp Metabolic Zur858 CL 100 mEq/L 10/23/2016 Comp Metabolic Itv224 CO2 30.0 mEq/L 10/23/2016 Comp Metabolic Bwo457 AN ION GAP 11 10/23/2016 Comp Metabolic Ewf754 GL UCOSE 139 mg/dL 10/23/2016 Comp Metabolic Hui167 Cr eat 0.9 mg/dL 10/23/2016 Comp Metabolic Tgt964 eG FR 62 ml/min/1.73m2 10/23 Comp Metabolic Txk043 BUN 22 mg/dL 10/23/2016 Comp Metabolic Nci533 B/ C Ratio 23.4 Ratio 10/23/2016 Comp Metabolic Gfo335 CA LCIUM 8.7 mg/dL 10/23/2016 Comp Metabolic Uho534 AL K PHOS 66 U/L 10/23/2016 Comp Metabolic Ubq085 T(SGOT) 20 U/L 10/23/2016 Comp Metabolic Oii679 AL T(SGPT) 10 U/L 10/23/2016 Comp Metabolic Sem796 BI LI T 0.5 mg/dL 10/23/2016 Comp Metabolic Nby131 AL BUMIN 3.5 g/dL 10/23/2016 Comp Metabolic Fju240 TP RO 6.3 g/dL 10/23/2016 Comp Metabolic Oxx238 GL OB 2.8 g/dL 10/23/2016 Comp Metabolic Grw500 A/ G Ratio 1.3 Ratio 10/23/2016 Comp Metabolic Bey078 Os mo 281 mOsmo 10/23/2016 Pt Onk3506 PT 26.8 seconds 10/23/2016 Pt Asv4719 INR 2.7 10/23/2016 Pt Gcn7060 Low Intensity - 1.5-2.0 10/23/2016 Pt Pct8807 Mod intensity - 2.0-3.0 10/23/2016 Pt Sjd0988 Hi intensity - 3.0-4.0 10/23/2016 Pt Vui1395 PT 28.3 seconds 09/25/2016 Pt Oqw6496 INR 2.8 09/25/2016 Pt Cce5872 Low Intensity - 1.5-2.0 09/25/2016 Pt Kpq6986 Mod intensity - 2.0-3.0 09/25/2016 Pt Fgq4282 Hi intensity - 3.0-4.0 09/25/2016 Metabolic Ord15 [...] Metabolic Ord15 CALCIUM 8.8 mg/dL 09/25/2016 Pt Kmd9580 PT 30.6 seconds 09/11/2016 Pt Ehw1834 INR 3.2 09/11/2016 Pt Sxj1331 Low Intensity - 1.5-2.0 09/11/2016 Pt Ohm2179 Mod intensity - 2.0-3.0 09/11/2016 Pt Gvm6989 Hi intensity - 3.0-4.0 09/11/2016 Comp Metabolic Jyt707 NA 138 mEq/L 09/11/2016 Comp Metabolic Ovj621 K 4.4 mEq/L 09/11/2016 Comp Metabolic Plh563 CL 103 mEq/L 09/11/2016 Comp Metabolic Ath146 CO2 31.0 mEq/L 09/11/2016 Comp Metabolic Rtr124 AN ION GAP 8 09/11/2016 Comp Metabolic Wkf752 GL UCOSE 146 mg/dL 09/11/2016 Comp Metabolic Tst365 Cr eat 1.0 mg/dL 09/11/2016 Comp Metabolic Jqp200 eG FR 60 ml/min/1.73m2 09/11 Comp Metabolic Xln038 BUN 16 mg/dL 09/11/2016 Comp Metabolic Ugx449 B/ C Ratio 16.5 Ratio 09/11/2016 Comp Metabolic Fue064 CA LCIUM 8.7 mg/dL 09/11/2016 Comp Metabolic Icx706 AL K PHOS 52 U/L 09/11/2016 Comp Metabolic Hwq050 T(SGOT) 19 U/L 09/11/2016 Comp Metabolic Gci367 AL T(SGPT) 11 U/L 09/11/2016 Comp Metabolic Xrv190 BI LI T 0.7 mg/dL 09/11/2016 Comp Metabolic Qeu199 AL BUMIN 3.3 g/dL 09/11/2016 Comp Metabolic Vdm875 TP RO 5.8 g/dL 09/11/2016 Comp Metabolic Zzx888 GL OB 2.5 g/dL 09/11/2016 Comp Metabolic Fms631 A/ G Ratio 1.3 Ratio 09/11/2016 Comp Metabolic Hwg564 Os mo 280 mOsmo 09/11/2016 C-Reactive Protein Qnt Crqnt CRP 0.1 mg/dl 08/21/2016 Comp Metabolic Hob972 NA 139 mEq/L 08/21/2016 Comp Metabolic Vky664 K 4.1 mEq/L 08/21/2016 Comp Metabolic Fha609 CL 102 mEq/L 08/21/2016 Comp Metabolic Okl333 CO2 30.0 mEq/L 08/21/2016 Comp Metabolic Qwq478 AN ION GAP 11 08/21/2016 Comp Metabolic Hoi839 GL UCOSE 148 mg/dL 08/21/2016 Comp Metabolic Reu540 Cr eat 1.0 mg/dL 08/21/2016 Comp Metabolic Gba960 eG FR 55 ml/min/1.73m2 08/21 Comp Metabolic Hwe115 BUN 21 mg/dL 08/21/2016 Comp Metabolic Qso137 B/ C Ratio 20.2 Ratio 08/21/2016 Comp Metabolic Hpk384 CA LCIUM 9.4 mg/dL 08/21/2016 Comp Metabolic Nvh358 AL K PHOS 63 U/L 08/21/2016 Comp Metabolic Pch936 T(SGOT) 23 U/L 08/21/2016 Comp Metabolic Amr018 AL T(SGPT) 16 U/L 08/21/2016 Comp Metabolic Mmy924 BI LI T 0.6 mg/dL 08/21/2016 Comp Metabolic Zln587 AL BUMIN 3.9 g/dL 08/21/2016 Comp Metabolic Xqw857 TP RO 6.8 g/dL 08/21/2016 Comp Metabolic Ols327 GL OB 2.9 g/dL 08/21/2016 Comp Metabolic Yfh804 A/ G Ratio 1.4 Ratio 08/21/2016 Comp Metabolic Dxr227 Os mo 283 mOsmo 08/21/2016 Sed Rate Ord21 ESR 16 mm/hr 08/21/2016 Pt Rqg8856 PT 27.2 seconds 08/21/2016 Pt Ene5887 INR 2.7 08/21/2016 Pt Utc2390 Low Intensity - 1.5-2.0 08/21/2016 Pt Tqo8392 Mod intensity - 2.0-3.0 08/21/2016 Pt Orm2632 Hi intensity - 3.0-4.0 08/21/2016 Magnesium Ord90 Mag 1.9 mg/dL 08/21/2016 Pt Rxh1937 PT 25.9 seconds 06/17/2016 Pt Nbd7384 INR 2.5 06/17/2016 Pt Gmu2725 Low Intensity - 1.5-2.0 06/17/2016 Pt Yne5418 Mod intensity - 2.0-3.0 06/17/2016 Pt Tsq1002 Hi intensity - 3.0-4.0 06/17/2016 Tsh Ord6 hTSH II 2.13 uIU/mL 06/08/2016 Free T4 Pgj579 FREE T4 0.79 ng/dL 06/08/2016 Cbc With [...] 26.8 pg 06/08/2016 Cbc With Differential Ord2 Knott% 12.0 % 06/08/2016 Cbc With Differential Ord2 [...] 1.40 K/ul 06/08/2016 Cbc With Differential Ord2 Knott ABS# 0.7 K/ul 06/08/2016 Cbc With Differential Ord2 Eos ABS# 0.3 K/ul 06/08/2016 Cbc With Differential Ord2 Baso ABS# 0.1 K/ul 06/08/2016 %Hba1C Kdi152 % HbA1c 03856-5 6.2 % 06/08/2016 %Hba1C Yvq311 Gluc Ave 131 mg/dL 06/08/2016 Comp Metabolic Fqk479 NA 138 mEq/L 06/08/2016 Comp Metabolic Hyn936 K 3.9 mEq/L 06/08/2016 Comp Metabolic Yiy527 CL 105 mEq/L 06/08/2016 Comp Metabolic Tel212 CO2 27.0 mEq/L 06/08/2016 Comp Metabolic Ayj290 AN ION GAP 10 06/08/2016 Comp Metabolic Wnx145 GL UCOSE 127 mg/dL 06/08/2016 Comp Metabolic Sqt162 Cr eat 1.0 mg/dL 06/08/2016 Comp Metabolic Pby638 eG FR 59 ml/min/1.73m2 06/08 Comp Metabolic Ptp565 BUN 19 mg/dL 06/08/2016 Comp Metabolic Lag458 B/ C Ratio 19.4 Ratio 06/08/2016 Comp Metabolic Apg983 CA LCIUM 9.2 mg/dL 06/08/2016 Comp Metabolic Xnp443 AL K PHOS 77 U/L 06/08/2016 Comp Metabolic Syr445 T(SGOT) 19 U/L 06/08/2016 Comp Metabolic Vmf936 AL T(SGPT) 13 U/L 06/08/2016 Comp Metabolic Xpt294 BI LI T 0.5 mg/dL 06/08/2016 Comp Metabolic Upo532 AL BUMIN 3.8 g/dL 06/08/2016 Comp Metabolic Mum970 TP RO 6.6 g/dL 06/08/2016 Comp Metabolic Tuk332 GL OB 2.8 g/dL 06/08/2016 Comp Metabolic Tqq033 A/ G Ratio 1.4 Ratio 06/08/2016 Comp Metabolic Faq860 Os mo 280 mOsmo 06/08/2016 Pt Lmo8185 PT 36.1 seconds 06/08/2016 Pt San0059 INR 3.9 06/08/2016 Pt Ojp7021 Low Intensity - 1.5-2.0 06/08/2016 Pt Unw6782 Mod intensity - 2.0-3.0 06/08/2016 Pt Wvn8723 Hi intensity - 3.0-4.0 06/08/2016 Lipid Ord30 CHOL 149 mg/dL 06/08/2016 Lipid Ord30 HDL 46.0 mg/dl 06/08/2016 Lipid Ord30 TRIG 279 mg/dL 06/08/2016 Lipid Ord30 LDL 47 mg/dL 06/08/2016 Lipid Ord30 C/HDL 3.2 Ratio 06/08/2016 Pt Nyx4595 PT 30.9 seconds 02/12/2016 Pt Zho1476 INR 3.2 02/12/2016 Pt Yng0555 Low Intensity - 1.5-2.0 02/12/2016 Pt Yjg9946 Mod intensity - 2.0-3.0 02/12/2016 Pt Lmq0089 Hi intensity - 3.0-4.0 02/12/2016 Free T4 Ooi126 FREE T4 1.24 ng/dL 09/27/2015 %Hba1C Mln816 % HbA1c 59886-5 6.4 % 09/27/2015 %Hba1C Ffx069 Gluc Ave 137 mg/dL 09/27/2015 Tsh Ord6 hTSH II 0.37 uIU/mL 09/27/2015 Pt Cdv5361 PT 26.2 seconds 09/27/2015 Pt Yjy7943 INR 2.5 09/27/2015 Pt Lbs1976 Low Intensity - 1.5-2.0 09/27/2015 Pt Iic6413 Mod intensity - 2.0-3.0 09/27/2015 Pt Gxf2422 Hi intensity - 3.0-4.0 09/27/2015 Pt Dpj3484 PT 27.6 seconds 2015 Pt Alh1452 INR 2.7 2015 Pt Hua8729 Low Intensity - 1.5-2.0 2015 Pt Nhq1105 Mod intensity - 2.0-3.0 2015 Pt Hqy1809 Hi intensity - 3.0-4.0 2015 %Hba1C Hoq752 % HbA1c 78275-6 6.1 % 06/11/2015 %Hba1C Wyd076 Gluc Ave 128 mg/dL 06/11/2015 Cbc With [...] Ord2 RDW 15.8 % 06/10/2015 Comp Metabolic Abc941 NA 139 mEq/L 06/10/2015 Comp Metabolic Pqv040 K 4.1 mEq/L 06/10/2015 Comp Metabolic Iqs159 CL 105 mEq/L 06/10/2015 Comp Metabolic Qkp018 CO2 27.0 mEq/L 06/10/2015 Comp Metabolic Dkd161 AN ION GAP 11 06/10/2015 Comp Metabolic Chc476 GL UCOSE 127 mg/dL 06/10/2015 Comp Metabolic Uqn301 Cr eat 1.0 mg/dL 06/10/2015 Comp Metabolic Mpp233 eG FR 59 ml/min/1.73m2 06/10 Comp Metabolic Vls788 BUN 21 mg/dL 06/10/2015 Comp Metabolic Tte292 B/ C Ratio 21.2 Ratio 06/10/2015 Comp Metabolic Ewr348 CA LCIUM 9.2 mg/dL 06/10/2015 Comp Metabolic Kca172 AL K PHOS 87 U/L 06/10/2015 Comp Metabolic Ofl737 T(SGOT) 20 U/L 06/10/2015 Comp Metabolic Opf313 AL T(SGPT) 17 U/L 06/10/2015 Comp Metabolic Njc370 BI LI T 0.4 mg/dL 06/10/2015 Comp Metabolic Mjc737 AL BUMIN 4.1 g/dL 06/10/2015 Comp Metabolic Hub381 TP RO 7.2 g/dL 06/10/2015 Comp Metabolic Xoy818 GL OB 3.1 g/dL 06/10/2015 Comp Metabolic Eeb999 A/ G Ratio 1.3 Ratio 06/10/2015 Comp Metabolic Wrv849 Os mo 282 mOsmo 06/10/2015 Tsh Ord6 hTSH II 0.86 uIU/mL 06/10/2015 Lipid Ord30 CHOL 161 mg/dL 06/10/2015 Lipid Ord30 HDL 49.0 mg/dl 06/10/2015 Lipid Ord30 TRIG 208 mg/dL 06/10/2015 Lipid Ord30 LDL 70 mg/dL 06/10/2015 Lipid Ord30 C/HDL 3.3 Ratio 06/10/2015 Pt Tul0686 PT 25.0 seconds 04/09/2015 Pt Tot9869 INR 2.4 04/09/2015 Pt Cqw8816 Low Intensity - 1.5-2.0 04/09/2015 Pt Mzp2523 Mod intensity - 2.0-3.0 04/09/2015 Pt Ibq4578 Hi intensity - 3.0-4.0 04/09/2015 Free T4 Lwf463 FREE T4 1.05 ng/dL 01/22/2015 Pt Sjs1792 PT 27.2 seconds 01/22/2015 Pt Bng7064 INR 2.6 01/22/2015 Pt Mjs0479 Low Intensity - 1.5-2.0 01/22/2015 Pt Gsi1439 Mod intensity - 2.0-3.0 01/22/2015 Pt Rij5540 Hi intensity - 3.0-4.0 01/22/2015 Cbc With [...] Differential Ord2 RDW 15.2 % 01/22/2015 B12 Ebv180 B12 402.00 pg/ml 01/22/2015 Tsh Ord6 hTSH II 0.65 uIU/mL 01/22/2015 Lipid Ord30 CHOL 166 mg/dL 01/22/2015 Lipid Ord30 HDL 48.0 mg/dl 01/22/2015 Lipid Ord30 TRIG 264 mg/dL 01/22/2015 Lipid Ord30 LDL 65 mg/dL 01/22/2015 Lipid Ord30 C/HDL 3.5 Ratio 01/22/2015 Comp Metabolic Tbm773 NA 138 mEq/L 01/22/2015 Comp Metabolic Kyp339 K 4.1 mEq/L 01/22/2015 Comp Metabolic Mvq806 CL 104 mEq/L 01/22/2015 Comp Metabolic Kez763 CO2 29.0 mEq/L 01/22/2015 Comp Metabolic Bjk171 AN ION GAP 9 01/22/2015 Comp Metabolic Ysd881 GL UCOSE 106 mg/dL 01/22/2015 Comp Metabolic Owk993 Cr eat 0.9 mg/dL 01/22/2015 Comp Metabolic Vgm031 eG FR 63 ml/min/1.73m2 01/22 Comp Metabolic Cvv026 BUN 21 mg/dL 01/22/2015 Comp Metabolic Jmm093 B/ C Ratio 22.3 Ratio 01/22/2015 Comp Metabolic Xbg167 CA LCIUM 9.4 mg/dL 01/22/2015 Comp Metabolic Rrr040 AL K PHOS 83 U/L 01/22/2015 Comp Metabolic Yer780 T(SGOT) 23 U/L 01/22/2015 Comp Metabolic Fzx805 AL T(SGPT) 18 U/L 01/22/2015 Comp Metabolic Jqa071 BI LI T 0.8 mg/dL 01/22/2015 Comp Metabolic Hkr306 AL BUMIN 4.2 g/dL 01/22/2015 Comp Metabolic Okp301 TP RO 7.3 g/dL 01/22/2015 Comp Metabolic Zan039 GL OB 3.1 g/dL 01/22/2015 Comp Metabolic Aqf584 A/ G Ratio 1.4 Ratio 01/22/2015 Comp Metabolic Kds660 Os mo 279 mOsmo 01/22/2015 Review of [...] Procedure Codes Date THER/PROPH/DIAG INJ SC/IM CPT-4: 19411 09/02/2018 TRIAMCINOLONE ACET I [place] NOS CPT-4: J3301 09/02/2018 URINALYSIS NONAUTO W /O SCOPE CPT-4: 17572 03/05/2017 Vital Signs Date Vital 09/02/2018 Blood Pressure 1: 128/72 Code: 8480-6 BMI: 38.2 Code: 07673-7 Heart Rate 1: 80 bpm Height: 5'1" SpO2: 98% Weight: 202 lbs 04/14/2018 Blood Pressure 1: 116/78 Code: 8480-6 BMI: 41.6 Code: 55850-3 Heart Rate 1: 72 bpm Height: 5'1" SpO2: 98% Weight: 220 lbs 01/18/2018 Blood Pressure 1: 132/74 Code: 8480-6 BMI: 43.5 Code: 46884-7 Heart Rate 1: 70 bpm Height: 5'1" SpO2: 97% Weight: 230 lbs 01/04/2018 Blood Pressure 1: 134/76 Code: 8480-6 BMI: 42.7 Code: 48374-3 Heart Rate 1: 83 bpm Height: 5'1" SpO2: 98% Weight: 226 lbs 09/23/2017 Blood Pressure 1: 124/76 Code: 8480-6 BMI: 42.3 Code: 15092-0 Heart Rate 1: 94 bpm Height: 5'1" SpO2: 96% Weight: 224 lbs 05/27/2017 Blood Pressure 1: 146/78 Code: 8480-6 BMI: 41.4 Code: 35754-0 Heart Rate 1: 85 bpm Height: 5'1" SpO2: 98% Weight: 219 lbs 02/24/2017 Blood Pressure 1: 138/66 Code: 8480-6 BMI: 41.4 Code: 73024-0 Heart Rate 1: 78 bpm Height: 5'1" SpO2: 97% Weight: 219 lbs 11/02/2016 Blood Pressure 1: 144/72 Code: 8480-6 BMI: 46.1 Code: 32070-9 Heart Rate 1: 78 bpm Height: 5'1" SpO2: 98% Weight: 244 lbs 09/30/2016 Blood Pressure 1: 130/76 Code: 8480-6 BMI: 45.0 Code: 89688-8 Heart Rate 1: 86 bpm Height: 5'1" SpO2: 98% Weight: 238 lbs 09/10/2016 Blood Pressure 1: 136/68 Code: 8480-6 BMI: 46.3 Code: 06557-9 Heart Rate 1: 83 bpm Height: 5'1" SpO2: 98% Weight: 245 lbs 08/20/2016 Blood Pressure 1: 142/78 Code: 8480-6 BMI: 45.3 Code: 38741-2 Heart Rate 1: 84 bpm Height: 5'1" SpO2: 99% Weight: 240 lbs 06/08/2016 Blood Pressure 1: 134/76 Code: 8480-6 BMI: 44.2 Code: 08083-8 Heart Rate 1: 86 bpm Height: 5'1" SpO2: 96% Weight: 234 lbs 04/02/2016 Blood Pressure 1: 142/70 Code: 8480-6 BMI: 44.6 Code: 57899-5 Heart Rate 1: 78 bpm Height: 5'1" SpO2: 97% Weight: 236 lbs 01/14/2016 Blood Pressure 1: 146/72 Code: 8480-6 BMI: 44.2 Code: 80189-2 Heart Rate 1: 86 bpm Height: 5'1" SpO2: 96% Weight: 234 lbs 10/02/2015 Blood Pressure 1: 158/76 Code: 8480-6 BMI: 44.2 Code: 20318-1 Heart Rate 1: 67 bpm Height: 5'1" SpO2: 97% Weight: 234 lbs 07/15/2015 Blood Pressure 1: 200/90 Code: 8480-6 Blood Pressure 1: 148/78 Code: 8480-6 BMI: 44.0 Code: 47312-5 Heart Rate 1: 89 bpm Height: 5'1" SpO2: 97% Weight: 233 lbs 06/10/2015 Blood Pressure 1: 140/82 Code: 8480-6 BMI: 44.0 Code: 53466-0 Heart Rate 1: 78 bpm Height: 5'1" [...] wearing crocs and there was a new sami on the floor: her foot didn't move [...] Other allergic rhinitis[ICD10: J30.89] Nata Almanza MD, [facility] CPT-4: 34213 09/02/2018 ([id number]) [id number] EST. 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 P ATIENT, LEVEL III Diagnosis: Localized edema[ICD10: R60.0] Diagnosis: Gastro-esophageal reflux disease without esophagitis[ICD10: K21.9] Edna Almanza MD, [facility] CPT-4: 92391 01/18/2018 ([id number]) 72547 EST. P ATIENT, LEVEL IV Diagnosis: Gastro-esophageal reflux disease without esophagitis[ICD10: K21.9] Diagnosis: Localized edema[ICD10: R60.0] Diagnosis: Essential (primary) hypertension[ICD10: I10] Diagnosis: Hypothyroidism, unspecified[ICD10: E03.9] Diagnosis: Impaired fasting glucose[ICD10: R73.01] Edna Almanza MD, [facility] CPT-4: 42872 01/04/2018 ([id number]) 64507 EST. 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 P ATIENT, LEVEL IV Diagnosis: Essential (primary) hypertension[ICD10: I10] Diagnosis: Mixed hyperlipidemia[ICD10: E78.2] Diagnosis: Hypothyroidism, unspecified[ICD10: E03.9] Diagnosis: Impaired fasting glucose[ICD10: R73.01] Diagnosis: intermediate (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[ICD10: Z79.01] Edna Almanza MD, [facility] CPT-4: 48136 05/27/2017 [id number] EST. PATIENT, LEVEL III Diagnosis: Pain in right hip[ICD10: M25.551] Nata Almanza MD, [facility] CPT-4: 47022 02/24/2017 ([id number]) 77406 EST. P ATIENT, LEVEL IV Diagnosis: Essential (primary) hypertension[ICD10: I10] Diagnosis: Localized edema[ICD10: R60.0] Diagnosis: Pain in right hip[ICD10: M25.551] Sarai Almanza MD, [facility] CPT-4: 16721 11/02/2016 ([id number]) 82344 EST. P ATIENT, LEVEL IV Diagnosis: Essential (primary) hypertension[ICD10: I10] Diagnosis: Localized edema[ICD10: R60.0] Sarai Almanza MD, [facility] CPT-4: 29795 09/30/2016 [id number] EST. PATIENT, LEVEL IV Diagnosis: Localized edema[ICD10: R60.0] Diagnosis: Pain in joints of left hand[ICD10: M25.542] Diagnosis: Pain in joints of right hand[ICD10: M25.541] Nata Almanza MD, [facility] CPT-4: 33269 09/10/2016 16756 EST. PATIENT, LEVEL IV Diagnosis: Localized edema[ICD10: R60.0] Diagnosis: Pain in joints of left hand[ICD10: M25.542] Diagnosis: Pain in joints of right hand[ICD10: M25.541] Diagnosis: Other fatigue[ICD10: R53.83] Nata Almanza MD, [facility] CPT-4: 11965 08/20/2016 73593 EST. 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 PATIENT, LEVEL IV Diagnosis: Other allergic rhinitis[ICD10: J30.89] Diagnosis: Acute laryngopharyngitis[ICD10: J06.0] Nata Almanza MD, [facility] CPT-4: 33187 04/02/2016 [id number] EST. PATIENT, LEVEL IV Diagnosis: Left upper quadrant pain[ICD10: R10.12] Nata Almanza MD, [facility] CPT-4: 73638 01/14/2016 [id number] EST. PATIENT, LEVEL IV Diagnosis: Pain in left shoulder[ICD10: M25.512] Diagnosis: Body mass index (BMI) 40.0-44.9, adult[ICD10: Z68.41] Nata Almanza MD, [facility] CPT-4: 92908 10/02/2015 [id number] EST. 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 09/02/2018 Appointment: Nata Hsu WPtel: [address] [place], [place] [phone] (15 min) Moderate 09/02/2018 Patient Education: Patient [...] Hgb A1C 04/14/2018 Appointment: Edna Douglas WPtel: [address] [place], [place] [phone] (15 min) Moderate 04/14/2018 Patient Education: Patient [...] to further attempt to reduce peripheral edema. JRYB-owgwsijp-wfjzwqlo prilosec BID and carafate QID -discussed low spice, low acidic diet 01/18/2018 Appointment: Edna Douglas WPtel: [phone] [phone] (15 min) Moderate 01/18/2018 Patient Education: [...] control. 01/04/2018 Appointment: [phone] (30 min) Complex 01/04/2018 Patient Education: Patient Medication Summary Completed 01/04/2018 Care Plan: SCREENINGMAMMOGRAPHYDIGITAL LOINC : 11367-9 Pending 01/04/2018 Visit Plan: Abdominal hernia - not able to be taken to surgery by local providers and pt has been seen at [facility] and that surgeon felt like Kat would [...] home. 09/23/2017 App[facility]ment: [phone] [facility] (15 min) Moderate 09/23/2017 Patient Education: Patient [...] to medications. 05/27/2017 Appointment: Edna Douglas WPtel: [phone] [phone] (30 min) Complex 05/27/2017 Patient Education: Patient [...] [place]. 02/24/2017 Appointment: Nata Hsu [phone] (30 min) Complex 02/24/2017 Patient Education: Patient [...] [place]. 11/02/2016 Appointment: [phone] [facility] (15 min) Moderate 11/02/2016 Patient Education: Patient Medication Summary Completed 11/02/2016 Patient Education: Obesity Completed 11/02/2016 Patient Education: Patient Medication Summary Completed 10/08/2016 Visit Plan: Hypertension - well alesha khaliled - continue with current medications, continue with [...] peripheral edema. 09/30/2016 Appointment: [facility] [phone] [facility] (15 min) Moderate 09/30/2016 Patient Education: Patient [...] edema. 09/10/2016 Appointment: Nata Hsu [phone] [facility] (30 min) Complex 09/10/2016 Patient Education: Patient [...] edema. 08/20/2016 Appointment: Nata Hsu [phone] [facility] (30 min) Complex 08/20/2016 Patient Education: Patient Medication Summary Completed 08/20/2016 Referral: [facility] Referral Initiated 07/02/2016 Visit Plan: Chronic Anticoagulant [...] 06/08/2016 Care Plan: Referral Order SNOMED-CT : [id number] Pending 06/08/2016 Visit Plan: URI - Pt [...] spray. 04/02/2016 Appointment: Nata Hsu [facility]Ptel[facility] [phone] [facility] (30 min) Complex 04/02/2016 Patient Education: Patient [...] acute pain 01/14/2016 Appointment: Edna Douglas WPtel: [phone] (30 min) Complex 01/14/2016 Patient Education: Patient Medication Summary Completed 01/14/2016 Patient Education: Obesity Completed 01/14/2016 Care Plan: BMI Above normal followup DAVID F-MGMT EDUC & TRAIN 1 PT Pending 10/24/2015 Care Plan: X-RAY EXAM OF SHOULDER LOINC : 20263-6 Pending 10/24/2015 Visit Plan: Left shoulder pain [...] weight check. 10/02/2015 Appointment: Edna Douglas WPtel: [phone] (15 min) Moderate 10/02/2015 Patient Education: Patient [...] ses Completed 06/10/2015 Appointment: [phone] [facility] (15 min) Moderate 04/22/2015 Visit Plan: Hypertension [...] have surgical fixation - planning occurring at [facility]. Snoring - Sleep apnea symptoms [...] normal liver response to medications. 01/22/2015 Appointment: CamiSarai WPtel: [facility] [place] [facility] New Patient 01/22/2015 Patient Education: Patient Medication Summary Completed 01/22/2015 Patient Education: Hypertension Completed 01/22/2015 [facility] Referral Initiated Instructions Comment steroid shot today [...] in the nasal steroid allergy spray. . Edema - pt has bee n advised to elevate legs to prevent dependent edema, compression has been recommended to help to naturally decrease peripheral edema. Diuretic use has been discussed and pt has been instructed in appropriate use of such medication as necessary to further attempt to reduce peripheral edema. Come in Wednesday to [facility] PT [...] if they worsen, or with other concerns. . Left shoulder pain - pt states [...] exercise. Pt will RTC for weight check. REFILL CARAFATE DISCUSSED EGD IF SYMPTOMS PERSIST [...] to further attempt to reduce peripheral edema. LPZA-qkpqjuzr-kxotmnzc prilosec BID and carafate QID -discussed low [...] providers and pt has been seen at [facility] and that surgeon felt like Kat would be better served by Dr. Betancur at [facility]. I have recommended a referral [...] worsening now - Will refer to Dr. Rosa sah the staff get you scheduled for a [...] have surgical fixation - planning occurring at [facility]. Snoring - Sleep apnea symptoms [...]
--- OUTSIDE RECORDS SUMMARY | 2020-01-16 22:43 | XMS REPORT | CCD ---
Author Author Kat Almanza Organization Sarai Almanza MD, [facility] Address [address] [place] [address] Phone Care Team Providers Care Inspector Water Pollution Control Name Role Phone PP Unavailable CCM Unavailable Summary Purpose Interface Exchange Insurance Providers Payer name Policy type / Coverage type Covered libertarian ID Effective Begin Date Effective End Date WPS Medicare Part B Medicare Part B [id number] 2017 Unknown [employer] [place] Medicare Part B [id number] 2017 Unknown Family history Father Diagnosis Age At Onset Hyperlipidemia Unknown Heart Attack Unknown Mother Diagnosis Age At Onset Arthritis Unknown Social History Social History Element Codes Description Effective Dates Marital status Unknown M arried Nathan 09/30/2016 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 Number of children Unknown 3 01/22/[address]: 898370416 Never smoker 01/22/[address]: 275714803 Never drinks alcohol 01/22/2015 Allergies, Adverse Reactions, Alerts Substance Reaction Codes Entered Date Inactivated Date Status * NO KNOWN DRUG ORIN RGIES Unknown 01/22/2015 No Inactive Date Active Past Medical History Illness Codes Condition Status Onset Date Resolved Date Mixed hyperlipidemia ICD-9: 272.4 ICD-10: E78.2 Active 06/09/2015 Unknown Hypothyroidism, unsp ecified ICD-9: 244.9 ICD-10: E03.9 Active 05/27/2017 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 [...] 780.79 ICD-10: R53.83 Active 08/20/2016 Unknown Other jail (cur rent) drug therapy ICD-9: V58.69 ICD-10: [...] ICD-9: 244.9 ICD-10: E03.9 05/27/2017 Active 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 [...] ICD-9: 780.79 ICD-10: R53.83 08/20/2016 Active Other jail (cur rent) drug therapy ICD-9: V58.69 ICD-10: [...] E R 20 mEq tablet,extended release RxNorm: 631810 TAKE ONE TABLET BY MOUTH DAILY 01/19/2019 04/18/2019 Active Carafate 1 gram tablet RxNorm: 634999 TAKE ONE TABLET BY MOUTH BEFORE MEALS AN D AT BEDTIME 12/30/2018 02/19/2019 Active Carafate 1 gram tablet RxNorm: 745080 TAKE ONE TABLET BY MOUTH BEFORE MEALS AN D AT BEDTIME 12/12/2018 12/29/2018 Inactive mupirocin 2 % topica l ointment RxNorm: 672035 1 Application TOP TID 12/08/2018 12/17/2018 Inactive mupirocin 2 % topica l ointment RxNorm: 377391 1 Application TOP TID 12/08/2018 12/07/2018 Inactive allopurinol 300 mg t ablet RxNorm: 301663 TAKE ONE TABLET BY MO UTH DAILY 11/22/2018 03/21/2019 Ac tive clonazepam 0.5 mg ta blet RxNorm: 471370 1 Tablet(s) PO BID 11/16/2018 04/14/2019 Active Carafate 1 gram tablet RxNorm: 960950 TAKE ONE TABLET BY MOUTH BEFORE MEALS AN D AT BEDTIME 11/15/2018 12/10/2018 Inactive atenolol 100 mg tablet RxNorm: 460304 TAKE ONE TABLET BY MOUTH DAILY 10/24/2018 05/21/2019 Ac tive potassium chloride E R 20 mEq tablet,extended release RxNorm: 486301 2 Tablet(s) PO daily 10/18/2018 02/14/2019 Active potassium chloride E R 20 mEq tablet,extended release RxNorm: 154326 1 Tablet(s) PO daily 10/03/2018 10/17/2018 Inactive Carafate 1 gram tablet RxNorm: 637565 TAKE ONE TABLET BY MOUTH BEFORE MEALS AN D AT BEDTIME 09/26/2018 11/14/2018 Inactive Plavix 75 mg tablet RxNorm: 709647 TAKE ONE TABLET BY MOUTH DAILY 09/02/2018 02/28/2019 Ac tive prednisone 10 mg tablet RxNorm: 194348 Tablet(s) PO 09/02/2018 No Stop Date Active 60,60,50,50,40,40,30,30,20,20,10,10 Synthroid 125 mcg ta blet RxNorm: 219457 1 Tablet(s) PO daily 09/02/2018 08/27/2019 Active potassium chloride E R 20 mEq tablet,extended release RxNorm: 449941 1 Tablet(s) PO daily 09/02/2018 09/01/2018 Inactive potassium chloride E R 20 mEq tablet,extended release RxNorm: 504148 1 Tablet(s) PO daily 09/02/2018 10/02/2018 Inactive Synthroid 125 mcg ta blet RxNorm: 122926 1 Tablet(s) PO daily 09/02/2018 09/01/2018 Inactive Keflex 500 mg capsule RxNorm: 269327 1 Capsule(s) PO TID 09/02/2018 09/08/2018 Inactive Kenalog 40 mg/mL maxine pension for injection RxNorm: 3056607 Milliliter(s) Inj 09/02/2018 09/02/2018 In active Lipitor 40 mg tablet RxNorm: 075197 TAKE ONE TABLET BY MOUTH DAILY 07/29/2018 07/23/2019 Ac tive Coumadin 1 mg tablet RxNorm: 967223 TAKE ONE TABLET BY MOUTH DAILY 07/29/2018 10/26/2018 In active Carafate 1 gram tablet RxNorm: 286034 TAKE ONE TABLET BY MOUTH BEFORE MEALS AN D AT BEDTIME 07/28/2018 09/17/2018 Inactive Coumadin 4 mg tablet RxNorm: 249312 2 Tablet(s) daily 07/11/2018 02/05/2019 Active Generi c For:COUMADIN 4MG 07/22/2017 8:58:26 AM Coumadin 5 mg tablet RxNorm: 581945 Tablet(s) TAKE 1 TABLET BY MOUTH DIRE CTED 07/08/2018 01/03/2019 Inactive Generic For:COUMADIN 5MG TAB 03/21/2018 9:13:00 AM Coumadin 4 mg tablet RxNorm: 097319 Tablet(s) TAKE 1 TABLET BY MOUTH THREE T IMES PER WEEK (WEDNESDAY, WEDNESDAY AND WEDNESDAY) 07/08/2018 07/10/2018 Inactive Gene andre For:COUMADIN 4MG 07/22/2017 8:58:26 AM Coumadin 1 mg tablet RxNorm: 989441 1 Tablet(s) PO daily 07/08/2018 08/06/2018 Inactive venlafaxine ER 75 mg capsule,extended release 24 hr RxNorm: 380225 Capsule(s) TAKE 1 CAPSULE BY MOUTH ONCE DAILY 06/23/2018 06/17/2019 Active Generic For:*EFFEXOR XR 75MG 06/19/2017 12:23:45 PM sodium bicarbonate 6 50 mg tablet RxNorm: 731878 Tablet(s) TAKE 2 TABL ETS BY MOUTH TWICE DAILY 06/23/2018 12/19/2018 Inactive 12/20/2017 9:10:59 AM Coumadin 1 mg tablet RxNorm: 614250 1 Tablet(s) PO daily 06/17/2018 07/07/2018 Inactive Coumadin 1 mg tablet RxNorm: 129028 1 Tablet(s) PO daily 06/17/2018 06/16/2018 Inactive clonazepam 0.5 mg ta blet RxNorm: 224655 1 Tablet(s) PO BID 06/08/2018 11/03/2018 Inactive spironolactone 25 mg tablet RxNorm: 721411 TAKE 1 TABLET BY MOUT H EVERY DAY 05/18/2018 05/12/2019 Ac tive Generic For:*ALDACTONE 25MG 05/18/2018 8:57:50 AM Carafate 1 gram tablet RxNorm: 561783 TAKE ONE TABLET BY MOUTH BEFORE MEALS AN D AT BEDTIME 05/18/2018 07/12/2018 Inactive Generic For:CARAFATE 1GM 1 07/18/2017 8:38:28 AM Synthroid 137 mcg ta blet RxNorm: 844773 TAKE 1 TABLET BY MOUT H ONCE DAILY 05/18/2018 08/30/2018 In active Generic For:SYNTHROID 137MCG TAB 2017 8:57:54 AM allopurinol 300 mg t ablet RxNorm: 958552 TAKE 1 TABLET BY MOUT H ONCE DAILY. 04/18/2018 10/14/2018 In active Generic For:ZYLOPRIM 300 MG TABLET 03/22 9:13:47 AM Lasix 20 mg tablet RxNorm: 519915 TAKE ONE TABLET BY MOUTH DAILY 04/18/2018 08/15/2018 In active Generic For:LASIX 20MG 04/18/2018 9:13: 50 AM Carafate 1 gram tablet RxNorm: 080400 TAKE ONE TABLET BY MOUTH BEFORE MEALS AN D AT BEDTIME 04/18/2018 05/17/2018 Inactive Generic For:CARAFATE 1GM 1 9:32:51 AM Coumadin 5 mg tablet RxNorm: 696429 TAKE 1 TABLET BY MOUTH DIRECTED 03/21/2018 07/07/2018 In active Generic For:COUMADIN 5MG TAB 03/21/2018 9:13:00 AM Carafate 1 gram tablet RxNorm: 234451 TAKE ONE TABLET BY MOUTH BEFORE MEALS AN D AT BEDTIME 03/21/2018 04/17/2018 Inactive Generic For:CARAFATE 1GM 1 9:14:24 AM Carafate 1 gram tablet RxNorm: 762433 1 Tablet(s) PO AC & HS 02/17/2018 03/20/2018 Inactive atenolol 100 mg tablet RxNorm: 702425 1 Tablet(s) PO daily 02/04/2018 09/01/2018 Inactive atenolol 50 mg tablet RxNorm: 934454 1 Tablet(s) PO daily 02/03/2018 02/03/2018 Inactive omeprazole 20 mg cap sean,delayed release RxNorm: 681548 1 Capsule(s) BID 01/21/2018 01/15/2019 In active Generic For:PRILOSEC 20MG 07/22/2017 8:5 8:20 AM Carafate 1 gram tablet RxNorm: 566937 1 Tablet(s) PO AC & HS 01/21/2018 02/16/2018 Inactive Carafate 1 gram tablet RxNorm: 652407 1 Tablet(s) PO AC & HS 01/18/2018 01/20/2018 Inactive Carafate 1 gram tablet RxNorm: 871289 1 Tablet(s) PO AC & HS 01/18/2018 02/27/2018 Inactive Carafate 1 gram tablet RxNorm: 449794 1 Tablet(s) PO AC & HS TAKE ONE TABLET B Y MOUTH TWICE DAILY 01/18/2018 05/17/2018 Inactive Generic For:CARAFATE 1GM 0 12/20/2017 9:10:56 AM omeprazole 20 mg cap sean,delayed release RxNorm: 961978 Capsule(s) TAKE 1 CAP SEAN BY MOUTH EVERY DAY 01/17/2018 01/20/2018 Inactive Generic For:PRILOSEC 20MG 0 07/22/2017 8:58:20 AM omeprazole 20 mg cap sean,delayed release RxNorm: 146192 Capsule(s) TAKE 1 CAP SEAN BY MOUTH EVERY DAY 01/14/2018 01/16/2018 Inactive Generic For:PRILOSEC 20MG 07/22/2017 8:58:20 AM clonazepam 0.5 mg ta blet RxNorm: 113906 1 Tablet(s) PO BID 01/07/2018 06/05/2018 Inactive Plavix 75 mg tablet RxNorm: 416897 1 Tablet(s) PO daily 01/07/2018 07/05/2018 Inactive Carafate 1 gram tablet RxNorm: 514668 1 Tablet(s) PO AC & HS 01/04/2018 01/17/2018 Inactive Lasix 20 mg tablet RxNorm: 985583 TAKE ONE TABLET BY MOUTH DAILY 12/20/2017 04/17/2018 In active Generic For:LASIX 20MG 12/20/2017 9:11: 03 AM sodium bicarbonate 6 50 mg tablet RxNorm: 918267 TAKE 2 TABLETS BY JAVON TH TWICE DAILY 12/20/2017 06/17/2018 In active 12/20/2017 9:10:59 AM Carafate 1 gram tablet RxNorm: 455604 TAKE ONE TABLET BY MOUTH TWICE DAILY 12/20/2017 01/17/2018 In active Generic For:CARAFATE 1GM 12/20/2017 9:1 0:56 AM Synthroid 137 mcg ta blet RxNorm: 498716 TAKE 1 TABLET BY MOUT H ONCE DAILY 11/19/2017 05/17/2018 In active Generic For:SYNTHROID 137MCG TAB 2017 8:58:04 AM Detrol LA 4 mg capsu le,extended release RxNorm: 779304 TAKE 1 CAPSULE BY JAVON TH ONCE DAILY 10/20/2017 04/13/2018 Inactive Generic For:DETROL LA 4MG C AP 10/20/2017 9:01:56 AM allopurinol 300 mg t ablet RxNorm: 968084 TAKE 1 TABLET BY MOUT H ONCE DAILY. 10/20/2017 04/17/2018 In active Generic For:ZYLOPRIM 300 MG TABLET 07/2017 9:01:59 AM Coumadin 5 mg tablet RxNorm: 378993 1 Tablet(s) PO UD 10/01/2017 03/20/2018 Inactive cyclobenzaprine 5 mg tablet RxNorm: 244796 1 Tablet(s) PO TID as needed myscle spasm 09/23/2017 10/12/2017 Inactive Lipitor 40 mg tablet RxNorm: 290013 TAKE 1 TABLET BY MOUTH ONCE DAILY 09/20/2017 07/28/2018 In active Generic For:LIPITOR 40MG 09/20/2017 8:5 6:04 AM atenolol 100 mg tablet RxNorm: 343667 1 Tablet(s) PO daily 08/30/2017 02/03/2018 Inactive atenolol 50 mg tablet RxNorm: 964889 1 Tablet(s) PO daily 08/30/2017 08/30/2017 Inactive Lovenox 30 mg/0.3 mL subcutaneous syringe RxNorm: 340169 0.3 Milliliter(s) SQ Q12H 08/24/2017 09/06/2017 In active Lasix 20 mg tablet RxNorm: 779934 TAKE ONE TABLET BY MOUTH DAILY 08/23/2017 12/19/2017 In active Generic For:LASIX 20MG 08/21/2017 9:04: 27 AM Synthroid 137 mcg ta blet RxNorm: 847057 TAKE 1 TABLET BY MOUT H ONCE DAILY 08/23/2017 11/18/2017 In active Generic For:SYNTHROID 137MCG TAB 2017 9:04:30 AM Lovenox 30 mg/0.3 mL subcutaneous syringe RxNorm: 730082 0.3 Milliliter(s) SQ Q12H 08/10/2017 08/23/2017 In active clonazepam 0.5 mg ta blet RxNorm: 189212 1 Tablet(s) PO BID 08/04/2017 12/30/2017 Inactive omeprazole 20 mg cap sean,delayed release RxNorm: 970772 TAKE 1 CAPSULE BY JAVON TH EVERY DAY 07/22/2017 01/13/2018 Inactive Generic For:PRILOSEC 20MG 07/22/2017 8: 58:20 AM Coumadin 4 mg tablet RxNorm: 975280 TAKE 1 TABLET BY MOUTH THREE TIMES PER W LEVELOCK (WEDNESDAY, WEDNESDAY AND WEDNESDAY) 07/22/2017 10/03/2018 Inactive Generic For:COUMADIN 4MG 07/22/2017 8:58:26 AM Coumadin 4 mg tablet RxNorm: 012967 TAKE 1 TABLET BY MOUTH THREE TIMES PER W LEVELOCK (WEDNESDAY, WEDNESDAY AND WEDNESDAY) 07/22/2017 02/16/2018 Inactive Generic For:COUMADIN 4MG 07/22/2017 8:58:26 AM sodium bicarbonate 6 50 mg tablet RxNorm: 997321 TAKE 2 TABLETS BY JAVON TH TWICE DAILY 06/22/2017 12/18/2017 In active 06/19/2017 12:23:30 PM venlafaxine ER 75 mg capsule,extended release 24 hr RxNorm: 369198 TAKE 1 CAPSULE BY MOUTH ONCE DAILY 06/22/2017 06/16/2018 Inactive Generic For:*EFFEXOR XR 75M G 06/19/2017 12:23:45 PM Coumadin 5 mg tablet RxNorm: 471381 1 Tablet(s) PO UD 06/01/2017 09/30/2017 Inactive Keflex 500 mg capsule RxNorm: 976530 1 Capsule(s) PO TID 05/27/2017 06/02/2017 Inactive Synthroid 137 mcg ta blet RxNorm: 000583 TAKE 1 TABLET BY MOUT H ONCE DAILY 05/24/2017 08/21/2017 In active Generic For:SYNTHROID 137MCG TAB 2016 8:55:59 AM Carafate 1 gram tablet RxNorm: 600709 TAKE ONE TABLET BY MOUTH TWICE DAILY 05/24/2017 12/19/2017 In active Generic For:CARAFATE 1GM 05/24/2017 8:5 5:54 AM spironolactone 25 mg tablet RxNorm: 360673 1 Tablet(s) PO daily 05/24/2017 05/17/2018 Inactive Detrol LA 4 mg capsu le,extended release RxNorm: 215511 1 Capsule(s) PO daily TAKE 1 CAPSULE BY MOUTH ONCE DAILY 05/10/2017 10/19/2017 Inactive Generic For:DETROL LA 4MG CAP 02/19/2017 2:36:00 PM Lasix 20 mg tablet RxNorm: 536183 TAKE ONE TABLET BY MOUTH DAILY 04/23/2017 08/20/2017 In active Generic For:LASIX 20MG 04/23/2017 9:04: 01 AM Coumadin 4 mg tablet RxNorm: 081134 TAKE 1 TABLET BY MOUTH THREE TIMES PER W LEVELOCK (WEDNESDAY, WEDNESDAY AND WEDNESDAY) 04/23/2017 07/21/2017 Inactive Generic For:COUMADIN 4MG 04/23/2017 9:04:05 AM allopurinol 300 mg t ablet RxNorm: 626291 TAKE 1 TABLET BY MOUT H ONCE DAILY. 04/23/2017 10/19/2017 In active Generic For:ZYLOPRIM 300 MG TABLET 08/2016 9:03:57 AM potassium chloride 2 0 mEq/15 mL oral liquid RxNorm: 651985 Milliliter(s) 30 Milliliter(s) (40mEq) PO daily 03/24/2017 07/21/2017 Inactive Lovenox 30 mg/0.3 mL subcutaneous syringe RxNorm: 941309 0.3 Milliliter(s) SQ Q12H 03/22/2017 03/26/2017 In active Lovenox 30 mg/0.3 mL subcutaneous syringe RxNorm: 833430 0.3 Milliliter(s) SQ Q12H 03/19/2017 03/20/2017 In active Lovenox 30 mg/0.3 mL subcutaneous syringe RxNorm: 646152 0.3 Milliliter(s) SQ Q12H 03/16/2017 03/18/2017 In active clonazepam 0.5 mg ta blet RxNorm: 681612 1 Tablet(s) PO BID 03/02/2017 10/03/2018 Inactive Lovenox 30 mg/0.3 mL subcutaneous syringe RxNorm: 231775 1 injection SQ BID do NOT take the night time dose the day before surgery, or the morning dose the day of surgery 03/01/2017 03/07/2017 Inactive Lovenox 30 mg/0.3 mL subcutaneous syringe RxNorm: 860015 1 injection SQ BID 03/01/2017 02/28/2017 In active Detrol LA 4 mg capsu le,extended release RxNorm: 523974 TAKE 1 CAPSULE BY JAVON TH ONCE DAILY 02/19/2017 05/09/2017 Inactive Generic For:DETROL LA 4MG C AP 02/19/2017 2:36:00 PM hydrocodone 5 mg-humberto taminophen 325 mg tablet RxNorm: 297193 1-2 Tablet(s) PO Q6 P RN 02/04/2017 No Stop Date Active Zetia 10 mg tablet RxNorm: 684763 TAKE 1 TABLET BY MOUTH DAILY 01/25/2017 04/13/2018 Inactive 01/23/2017 9:03:48 AM omeprazole 20 mg cap sean,delayed release RxNorm: 122458 TAKE 1 CAPSULE BY JAVON TH EVERY DAY 01/25/2017 07/21/2017 Inactive Generic For:PRILOSEC 20MG 01/23/2017 9: 03:45 AM Coumadin 4 mg tablet RxNorm: 117593 TAKE 1 TABLET BY MOUTH THREE TIMES PER W LEVELOCK (WEDNESDAY, WEDNESDAY AND WEDNESDAY) 01/25/2017 04/22/2017 Inactive Generic For:COUMADIN 4MG 01/23/2017 9:03:51 AM sodium bicarbonate 6 50 mg tablet RxNorm: 148766 TAKE 2 TABLETS BY JAVON TH TWICE DAILY 12/24/2016 06/21/2017 In active 12/24/2016 9:09:27 AM Lasix 20 mg tablet RxNorm: 018926 1 Tablet(s) PO daily 12/24/2016 04/22/2017 Inactive Synthroid 137 mcg ta blet RxNorm: 253549 TAKE 1 TABLET BY MOUT H ONCE DAILY 11/24/2016 05/22/2017 In active Generic For:SYNTHROID 137MCG TAB 2016 9:04:37 AM Coumadin 4 mg tablet RxNorm: 560055 TAKE 1 TABLET BY MOUTH THREE TIMES PER W LEVELOCK (WEDNESDAY, WEDNESDAY AND WEDNESDAY) 11/24/2016 01/22/2017 Inactive Generic For:COUMADIN 4MG 11/24/2016 9:04:41 AM hydrocodone 5 mg-humberto taminophen 325 mg tablet RxNorm: 577994 1-2 Tablet(s) PO Q6 P RN 11/17/2016 02/03/2017 In active Carafate 1 gram tablet RxNorm: 997715 TAKE ONE TABLET BY MOUTH TWICE DAILY 10/27/2016 05/23/2017 In active Generic For:CARAFATE 1GM 10/26/2016 8:3 9:42 AM allopurinol 300 mg t ablet RxNorm: 554304 Tablet(s) TAKE 1 TABL ET BY MOUTH ONCE DAILY. 10/26/2016 04/22/2017 Inactive Lipitor 40 mg tablet RxNorm: 827045 1 Tablet(s) PO daily 09/25/2016 09/19/2017 Inactive Coumadin 4 mg tablet RxNorm: 357191 TAKE 1 TABLET BY MOUTH THREE TIMES PER W LEVELOCK (WEDNESDAY, WEDNESDAY AND WEDNESDAY) 09/25/2016 11/23/2016 Inactive Generic For:COUMADIN 4MG 09/25/2016 8:55:58 AM Zetia 10 mg tablet RxNorm: 219277 1 Tablet(s) PO daily 09/25/2016 01/22/2017 Inactive gave 1 month of samples clonazepam 0.5 mg ta blet RxNorm: 417770 1 Tablet(s) PO BID 09/21/2016 10/03/2018 Inactive Lasix 20 mg tablet RxNorm: 791953 1 Tablet(s) PO daily 09/15/2016 12/23/2016 Inactive potassium chloride 2 0 mEq/15 mL oral liquid RxNorm: 659292 Milliliter(s) 30 Milliliter(s) (40mEq) PO daily 09/15/2016 01/12/2017 Inactive Lasix 20 mg tablet RxNorm: 042029 2 Tablet(s) PO daily 09/10/2016 09/12/2016 Inactive Lasix 20 mg tablet RxNorm: 929773 1 Tablet(s) PO daily 08/28/2016 08/30/2016 Inactive Lasix 20 mg tablet RxNorm: 820342 1 Tablet(s) PO daily 08/20/2016 08/22/2016 Inactive Detrol LA 4 mg capsu le,extended release RxNorm: 874092 TAKE 1 CAPSULE BY JAVON ONCE DAILY 07/27/2016 02/18/2017 Inactive Generic For:DETROL LA 4MG C AP 07/27/2016 9:08:27 AM Coumadin 4 mg tablet RxNorm: 891560 1 Tablet(s) PO 3 x week tue th and sun 07/27/2016 09/24/2016 In active omeprazole 20 mg cap sean,delayed release RxNorm: 677252 Capsule(s) PO TAKE 1 CAPSULE BY MOUTH ONCE DAILY 07/27/2016 01/22/2017 Inactive venlafaxine ER 75 mg capsule,extended release 24 hr RxNorm: 907914 1 Capsule(s) PO daily 06/29/2016 06/21/2017 Inactive sodium bicarbonate 6 50 mg tablet RxNorm: 561719 [facility] 06/29/2016 12/23/2016 In active 06/27/2016 9:05:39 AM Coumadin 4 mg tablet RxNorm: 218945 1 Tablet(s) PO 3 x week wed and sun 06/09/2016 06/08/2016 In active Coumadin 4 mg tablet RxNorm: 256059 1 Tablet(s) PO 3 x week wed and sun 06/09/2016 07/26/2016 In active Zetia 10 mg tablet RxNorm: 861752 1 Tablet(s) PO daily 06/09/2016 06/08/2016 Inactive gave 1 month of samples Zetia 10 mg tablet RxNorm: 134122 1 Tablet(s) PO daily 06/09/2016 09/24/2016 Inactive gave 1 month of samples Effexor 75 mg tablet RxNorm: 231850 1 Tablet(s) PO daily 06/08/2016 06/28/2016 Inactive spironolactone 25 mg tablet RxNorm: 354543 1 Tablet(s) PO daily 06/08/2016 05/23/2017 Inactive Synthroid 137 mcg ta blet RxNorm: 054455 1 Tablet(s) PO daily 05/07/2016 11/02/2016 Inactive allopurinol 300 mg t ablet RxNorm: 142596 Tablet(s) TAKE 1 TABL ET BY MOUTH ONCE DAILY. 04/28/2016 10/24/2016 Inactive clonazepam 0.5 mg ta blet RxNorm: 631611 1 Tablet(s) PO BID 04/20/2016 10/03/2018 Inactive Flonase Allergy Reli ef 50 mcg/actuation nasal spray,suspension RxNorm: 3073918 1 Hulbert NASAL BID 04/02/2016 No Stop Date Active Zithromax Z-Thomas 250 mg tablet RxNorm: 094678 Tablet(s) PO 04/02/2016 08/27/2016 Inactive cetirizine 10 mg tablet RxNorm: 3683988 1 Tablet(s) PO daily 04/02/2016 05/01/2016 Inactive Carafate 1 gram tablet RxNorm: 872757 Tablet(s) TAKE 1 TABLET TWICE A DAY FOR 30 DAYS 03/30/2016 10/25/2016 Inactive Generic For:CARAFATE 1GM 02/08/2015 12:3 6:39 PM Plavix 75 mg tablet RxNorm: 212772 1 Tablet(s) PO daily 03/11/2016 09/06/2016 Inactive sodium bicarbonate 6 50 mg tablet RxNorm: 659517 Tablet(s) 2 Tablet(s) PO BID 02/28/2016 06/26/2016 In active omeprazole 20 mg cap esan,delayed release RxNorm: 744121 Capsule(s) PO TAKE 1 CAPSULE BY MOUTH ONCE DAILY 01/31/2016 07/26/2016 Inactive Fish Oil 1,000 mg ca psule RxNorm: 1 Capsule(s) PO BID 01/14/2016 No Stop Date Active Synthroid 137 mcg ta blet RxNorm: 531159 1 Tablet(s) PO daily 01/14/2016 05/06/2016 Inactive Detrol LA 4 mg capsu le,extended release RxNorm: 078796 TAKE 1 CAPSULE BY JAVON TH ONCE DAILY 12/30/2015 07/26/2016 Inactive Generic For:DETROL LA 4MG C AP 12/30/2015 9:11:01 AM potassium chloride 2 0 mEq/15 mL oral liquid RxNorm: 808634 Milliliter(s) 30 Milliliter(s) (40mEq) PO daily 12/02/2015 03/30/2016 Inactive sodium bicarbonate 6 50 mg tablet RxNorm: 338116 Tablet(s) 2 Tablet(s) PO BID 10/31/2015 02/27/2016 In active Lipitor 40 mg tablet RxNorm: 240011 1 Tablet(s) PO daily 10/09/2015 09/24/2016 Inactive sodium bicarbonate 6 50 mg tablet RxNorm: 401419 2 Tablet(s) PO BID 10/01/2015 10/30/2015 Inactive allopurinol 300 mg t ablet RxNorm: 294308 TAKE 1 TABLET BY MOUT H ONCE DAILY. 10/01/2015 04/27/2016 In active Generic For:ZYLOPRIM 300 MG TABLET 09/19 9:21:15 AM clonazepam 0.5 mg ta blet RxNorm: 852526 1 Tablet(s) PO BID 09/30/2015 04/19/2016 Inactive Coumadin 5 mg tablet RxNorm: 439947 1 Tablet(s) PO daily 09/27/2015 05/31/2017 Inactive Generic For:COUMADIN 5MG TAB N O T I C E PRESCRIPTION PREVIOUSLY AUTHORIZED BY DOCTOR:BOBBY ZULETA Synthroid 125 mcg ta blet RxNorm: 163121 1 Tablet(s) PO daily 09/27/2015 09/26/2015 Inactive Synthroid 125 mcg ta blet RxNorm: 083361 1 Tablet(s) PO daily 09/27/2015 01/13/2016 Inactive Carafate 1 gram tablet RxNorm: 326507 Tablet(s) TAKE 1 TABLET TWICE A DAY FOR 30 DAYS 09/02/2015 03/29/2016 Inactive Generic For:CARAFATE 1GM 02/08/2015 12:3 6:39 PM sodium bicarbonate 6 50 mg tablet RxNorm: 908141 2 Tablet(s) PO BID 09/02/2015 09/30/2015 Inactive Prilosec 20 mg capsu le,delayed release RxNorm: 928746 TAKE 1 CAPSULE BY JAVON ONCE DAILY 08/02/2015 01/28/2016 Inactive Generic For:PRILOSEC 20MG 08/02/2015 10:03:09 AM N O T I C E PRESCRIPTION PREVIOUSLY AUTHORIZED BY DOCTOR:BOBBY ZULETA Zyrtec 10 mg capsule RxNorm: 0030384 1 Capsule(s) PO daily 07/15/2015 08/13/2015 Inactive Keflex 500 mg capsule RxNorm: 809790 1 Capsule(s) PO TID 07/15/2015 07/21/2015 Inactive cetirizine 10 mg cap sean RxNorm: 1906119 1 Capsule(s) PO daily 07/15/2015 08/13/2015 Inactive hydrocodone 5 mg-humberto taminophen 325 mg tablet RxNorm: 957569 1-2 Tablet(s) PO Q6 P RN 06/10/2015 11/16/2016 In active sodium bicarbonate 6 50 mg tablet RxNorm: 927480 2 Tablet(s) PO BID 06/03/2015 08/31/2015 Inactive Detrol LA 4 mg capsu le,extended release RxNorm: 553061 TAKE 1 CAPSULE BY JAVON TH ONCE DAILY 06/03/2015 12/29/2015 Inactive Generic For:DETROL LA 4MG C AP N O T I C E PRESCRIPTION PREVIOUSLY AUTHORIZED BY DOCTOR:BOBBY ZULETA atenolol 50 mg tablet RxNorm: 451557 1 Tablet(s) PO daily TAKE 1 TABLET BY MO UTH DAILY 05/07/2015 08/23/2017 Inactive Generic For:TENORMIN 50MG 05/04/2015 9:07:22 AM spironolactone 25 mg tablet RxNorm: 721323 1 Tablet(s) PO daily 05/06/2015 06/07/2016 Inactive venlafaxine ER 75 mg capsule,extended release 24 hr RxNorm: 353576 1 Capsule(s) PO daily 05/04/2015 06/28/2016 Inactive atenolol 50 mg tablet RxNorm: 361745 TAKE 1 TABLET BY MOUTH DAILY 05/04/2015 05/06/2015 Inactive Generic For:TENORMIN 50MG 05/04/2015 9: 07:22 AM Synthroid 150 mcg ta blet RxNorm: 690758 TAKE 1 TABLET BY MOUT H ONCE DAILY. 04/05/2015 09/26/2015 In active Generic For:SYNTHROID 150MCG TAB 2014 4:45:40 PM N O T I C E PRESCRIPTION PREVIOUSLY AUTHORIZED BY DOCTOR:BOBBY ZULETA Effexor 75 mg tablet RxNorm: 182763 1 Tablet(s) PO daily 04/05/2015 07/03/2015 Inactive Coumadin 5 mg tablet RxNorm: 361622 TAKE 1 AND 1/2 TABLETS BY MOUTH ONCE MYRANDA LY 04/04/2015 09/26/2015 In active Generic For:COUMADIN 5MG TAB N O T I C E PRESCRIPTION PREVIOUSLY AUTHORIZED BY DOCTOR:BOBBY ZULETA clonazepam 0.5 mg ta blet RxNorm: 263325 1 Tablet(s) PO BID 03/13/2015 11/05/2015 Inactive sodium bicarbonate 6 50 mg tablet RxNorm: 597129 2 Tablet(s) PO BID 03/08/2015 06/02/2015 Inactive allopurinol 300 mg t ablet RxNorm: 504268 TAKE 1 TABLET BY MOUT H ONCE DAILY. 03/05/2015 09/30/2015 In active N O T I C E PRESCRIPTION PREVIOUSLY A UTHORIZED BY DOCTOR:BOBBY ZULETA Plavix 75 mg tablet RxNorm: 409671 1 Tablet(s) PO daily 02/12/2015 09/09/2015 Inactive clonazepam 0.5 mg ta blet RxNorm: 876024 1 Tablet(s) PO BID 02/11/2015 03/11/2015 Inactive Carafate 1 gram tablet RxNorm: 250164 TAKE 1 TABLET TWICE A DAY FOR 30 DAYS 02/08/2015 02/07/2015 In active Generic For:CARAFATE 1GM 02/08/2015 12:3 6:39 PM Carafate 1 gram tablet RxNorm: 525878 Tablet(s) TAKE 1 TABLET TWICE A DAY FOR 30 DAYS 02/08/2015 09/01/2015 Inactive Generic For:CARAFATE 1GM 02/08/2015 12:3 6:39 PM potassium chloride 2 0 mEq/15 mL oral liquid RxNorm: 951017 30 Milliliter(s) (40m Eq) PO daily 02/05/2015 12/01/2015 Inactive atenolol 50 mg tablet RxNorm: 737140 1 Tablet(s) PO daily 02/04/2015 05/03/2015 Inactive [SAVINGS FOR NON-COVERED DRUGS -- BIN:[id number], PCN: [id number], Group: XXXXX, ID# [id number], Questions: . THIS IS NOT INSURANCE.] potassium chloride 2 0 mEq/15 mL oral liquid RxNorm: 143929 30 Milliliter(s) (40m Eq) PO daily 01/08/2015 02/04/2015 Inactive potassium chloride 2 0 mEq/15 mL oral liquid RxNorm: 540774 30 Milliliter(s) (40m Eq) PO daily 12/07/2014 01/07/2015 Inactive atenolol 50 mg tablet RxNorm: 953744 1 Tablet(s) PO daily 11/09/2014 11/08/2014 Inactive atenolol 50 mg tablet RxNorm: 389573 1 Tablet(s) PO daily 11/09/2014 02/03/2015 Inactive [SAVINGS FOR NON-COVERED DRUGS -- BIN:[id number], PCN: [id number], Group: [id number], ID# [id number], Questions: . THIS IS NOT INSURANCE.] Voltaren 1 % topical gel RxNorm: 570334 TOP No St art Date Active verapamil ER (HS) 24 0 mg tablet,extended release 24 hr RxNorm: 276076 1 Tablet(s) PO daily No Start Date Active aspirin 81 mg tablet RxNorm: 045619 1 Tablet(s) PO daily No Start Date Active Zofran 4 mg tablet RxNorm: 225402 1 Tablet(s) PO PRN No Start Date Active B12 1000 mcg RxNorm: 1 Tablet(s) PO daily No Start Date Active magnesium oxide 400 mg capsule RxNorm: 263311 2 Capsule(s) PO BID No Start Date Active Synthroid 150 mcg ta blet RxNorm: 762670 1 Tablet(s) PO daily No Start Date 04/04/2015 Inactive Coumadin 5 mg tablet RxNorm: 146507 1 Tablet(s) PO daily No Start Date 04/03/2015 Inactive cranberry 1,000 mg c apsule RxNorm: 135719 1 Capsule(s) PO daily No Start Date 04/13/2018 Inactive allopurinol 300 mg t ablet RxNorm: 277685 1 Tablet(s) PO daily No Start Date 03/04/2015 Inactive Prilosec 20 mg capsu le,delayed release RxNorm: 931914 1 Capsule(s) PO PRN No Start Date 08/01/2015 Inactive potassium chloride 2 0 mEq/15 mL oral liquid RxNorm: 242012 30 Milliliter(s) (40m Eq) PO daily No Start Date 12/06/2014 Inactive atenolol 50 mg tablet RxNorm: 627418 1 Tablet(s) PO daily No Start Date 08/29/2017 Inactive Lipitor 40 mg tablet RxNorm: 309787 1 Tablet(s) PO daily No Start Date 09/19/2017 Inactive Effexor 75 mg tablet RxNorm: 248706 1 Tablet(s) PO daily No Start Date 04/04/2015 Inactive Carafate 1 gram tablet RxNorm: 709101 1 Tablet(s) PO BID No Start Date 02/07/2015 Inactive clonazepam 0.5 mg ta blet RxNorm: 077388 1 Tablet(s) PO BID No Start Date 02/10/2015 Inactive Plavix 75 mg tablet RxNorm: 446804 1 Tablet(s) PO daily No Start Date 02/11/2015 Inactive sodium bicarbonate 6 50 mg tablet RxNorm: 129905 2 Tablet(s) PO BID No Start Date 09/01/2015 Inactive Lovenox 30 mg/0.3 mL subcutaneous syringe RxNorm: 637727 0.3 Milliliter(s) SQ Q12H No Start Date 03/15/2017 Inactive Fish Oil 1,000 mg ca psule RxNorm: 1 Capsule(s) PO daily No Start Date 01/13/2016 Inactive Detrol LA 4 mg capsu le,extended release RxNorm: 352807 1 Capsule(s) PO daily No Start Date 06/02/2015 Inactive Medication Administered Medication Codes Instruc tions Start Date Status Kenalog 40 mg/mL suspension for injection RxNorm: 6107974 Milliliter 09/02/2018 No longer Active Immunizations Vaccine Codes Date Status SHINGARIX CVX: 121 03/23 completed Assessments Condition Codes Effectiv e Dates Mixed hyperlipidemia ICD-10: E78.2 ICD-9: 272.4 10/05/2018 Other acute sinusitis ICD-10: J01.80 ICD-9: 461.8 09/02/2018 Other allergic rhinitis ICD-10: J30. 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 [...] fatigue ICD-10: R53.83 ICD-9: 780.79 08/20/2016 Other jail (current) drug therapy ICD-10: Z79.899 ICD-9: V58.69 [...] Code Item Item Code Result Date Pt Gzo7897 PT 21.8 seconds 12/15/2018 Pt Adn5429 INR 2.0 12/15/2018 Pt Uxv4560 Low Intensity - 1.5-2.0 12/15/2018 Pt Lqf3501 Mod intensity - 2.0-3.0 12/15/2018 Pt Nnj0419 Hi intensity - 3.0-4.0 12/15/2018 Pt Gtn0420 PT 24.4 seconds 12/09/2018 Pt Lqa1281 INR 2.2 12/09/2018 Pt Hyc0711 Low Intensity - 1.5-2.0 12/09/2018 Pt Ywx0024 Mod intensity - 2.0-3.0 12/09/2018 Pt Aot9261 Hi intensity - 3.0-4.0 12/09/2018 Pt Emi6458 PT 35.0 seconds 12/01/2018 Pt Xhx8817 INR 3.5 12/01/2018 Pt Hkl8636 Low Intensity - 1.5-2.0 12/01/2018 Pt Axg6666 Mod intensity - 2.0-3.0 12/01/2018 Pt Gyf9508 Hi intensity - 3.0-4.0 12/01/2018 Pt Eqn6999 PT 26.3 seconds 10/13/2018 Pt Nas2525 INR 2.5 10/13/2018 Pt Jqm7970 Low Intensity - 1.5-2.0 10/13/2018 Pt Clq7863 Mod intensity - 2.0-3.0 10/13/2018 Pt Top6842 Hi intensity - 3.0-4.0 10/13/2018 Lipid Ord30 CHOL 180 mg/dL 10/07/2018 Lipid Ord30 HDL 74.0 mg/dl 10/07/2018 Lipid Ord30 TRIG 111 mg/dL 10/07/2018 Lipid Ord30 LDL 84 mg/dL 10/07/2018 Lipid Ord30 C/HDL 2.4 Ratio 10/07/2018 Pt Igp9426 PT 38.1 seconds 10/07/2018 Pt Xae1478 INR 3.9 10/07/2018 Pt Mtr1535 Low Intensity - 1.5-2.0 10/07/2018 Pt Gsa6186 Mod intensity - 2.0-3.0 10/07/2018 Pt Uci6087 Hi intensity - 3.0-4.0 10/07/2018 Tsh Ord6 TSH (3rd IS) 0.43 uIU/mL 09/02/2018 Comp Metabolic Gtf759 NA 136 mEq/L 09/02/2018 Comp Metabolic Stm898 K 4.1 mEq/L 09/02/2018 Comp Metabolic Mvi850 CL 103 mEq/L 09/02/2018 Comp Metabolic Qgg442 CO2 20.0 mEq/L 09/02/2018 Comp Metabolic Kuw157 AN ION GAP 17 09/02/2018 Comp Metabolic Uhk916 GL UCOSE 124 mg/dL 09/02/2018 Comp Metabolic Thg075 Cr eat 1.0 mg/dL 09/02/2018 Comp Metabolic Cuw195 eG FR 57 ml/min/1.73m2 09/02 Comp Metabolic Gig784 BUN 24 mg/dL 09/02/2018 Comp Metabolic Dix892 B/ C Ratio 23.8 Ratio 09/02/2018 Comp Metabolic Nrd974 CA LCIUM 9.5 mg/dL 09/02/2018 Comp Metabolic Nlp743 AL K PHOS 64 U/L 09/02/2018 Comp Metabolic Lvl667 T(SGOT) 24 U/L 09/02/2018 Comp Metabolic Ioh610 AL T(SGPT) 23 U/L 09/02/2018 Comp Metabolic Mah722 BI LI T 0.5 mg/dL 09/02/2018 Comp Metabolic Von621 AL BUMIN 4.2 g/dL 09/02/2018 Comp Metabolic Lyu452 TP RO 7.4 g/dL 09/02/2018 Comp Metabolic Egz361 GL OB 3.2 g/dL 09/02/2018 Comp Metabolic Qoq175 A/ G Ratio 1.3 Ratio 09/02/2018 Comp Metabolic Qzu715 Os mo 277 mOsmo 09/02/2018 Pt Yzu1129 PT 40.6 seconds 09/02/2018 Pt Ktg9993 INR 4.2 09/02/2018 Pt Drc6803 Low Intensity - 1.5-2.0 09/02/2018 Pt Jjj1982 Mod intensity - 2.0-3.0 09/02/2018 Pt Buh6195 Hi intensity - 3.0-4.0 09/02/2018 Free T4 Nkp067 FREE T4 1.51 ng/dL 09/02/2018 Magnesium Ord90 Mag 1.8 mg/dL 09/02/2018 Pt Zhf5474 PT 29.2 seconds 08/05/2018 Pt Jix7835 INR 2.8 08/05/2018 Pt Kia4114 Low Intensity - 1.5-2.0 08/05/2018 Pt Wad9661 Mod intensity - 2.0-3.0 08/05/2018 Pt Afq3707 Hi intensity - 3.0-4.0 08/05/2018 Pt Veh7529 PT 30.2 seconds 07/25/2018 Pt Top0508 INR 2.9 07/25/2018 Pt Vid9693 Low Intensity - 1.5-2.0 07/25/2018 Pt Lgu3109 Mod intensity - 2.0-3.0 07/25/2018 Pt Chv7571 Hi intensity - 3.0-4.0 07/25/2018 Pt Azr4825 PT 25.2 seconds 07/19/2018 Pt Aru0477 INR 2.3 07/19/2018 Pt Gwl2695 Low Intensity - 1.5-2.0 07/19/2018 Pt Tqp6292 Mod intensity - 2.0-3.0 07/19/2018 Pt Owv8670 Hi intensity - 3.0-4.0 07/19/2018 Pt Rjr9472 PT 17.4 seconds 07/15/2018 Pt Oyt2308 INR 1.5 07/15/2018 Pt Vwr7995 Low Intensity - 1.5-2.0 07/15/2018 Pt Rvc5309 Mod intensity - 2.0-3.0 07/15/2018 Pt Kny2229 Hi intensity - 3.0-4.0 07/15/2018 Pt Cbb7544 PT 17.8 seconds 07/08/2018 Pt Dqg7912 INR 1.5 07/08/2018 Pt Ntm0464 Low Intensity - 1.5-2.0 07/08/2018 Pt Its3364 Mod intensity - 2.0-3.0 07/08/2018 Pt Jhi8168 Hi intensity - 3.0-4.0 07/08/2018 Pt Myt4758 PT 19.2 seconds 07/01/2018 Pt Grj9085 INR 1.7 07/01/2018 Pt Lfa0173 Low Intensity - 1.5-2.0 07/01/2018 Pt Qwt5705 Mod intensity - 2.0-3.0 07/01/2018 Pt Tmo8582 Hi intensity - 3.0-4.0 07/01/2018 Pt Jid4492 PT 17.4 seconds 06/23/2018 Pt Awt5817 INR 1.5 06/23/2018 Pt Erx2460 Low Intensity - 1.5-2.0 06/23/2018 Pt Jql4482 Mod intensity - 2.0-3.0 06/23/2018 Pt Rln7429 Hi intensity - 3.0-4.0 06/23/2018 Pt Zhm3425 PT 18.4 seconds 06/17/2018 Pt Xjy1267 INR 1.6 06/17/2018 Pt Nqu0184 Low Intensity - 1.5-2.0 06/17/2018 Pt Hxm5366 Mod intensity - 2.0-3.0 06/17/2018 Pt Lhk7434 Hi intensity - 3.0-4.0 06/17/2018 Sed Rate [...] 30.4 pg 06/08/2018 Cbc With Differential Ord2 Powell% 9.4 % 06/08/2018 Cbc With Differential Ord2 [...] 1.20 K/ul 06/08/2018 Cbc With Differential Ord2 Powell ABS# 0.5 K/ul 06/08/2018 Cbc With Differential Ord2 Eos ABS# 0.1 K/ul 06/08/2018 Cbc With Differential Ord2 Baso ABS# 0.1 K/ul 06/08/2018 C-Reactive Protein Qnt Crqnt CRP 0.1 mg/dl 06/08/2018 Pt Hga1860 PT 17.6 seconds 06/08/2018 Pt Fkb7926 INR 1.5 06/08/2018 Pt Ktn7142 Low Intensity - 1.5-2.0 06/08/2018 Pt Pvx1346 Mod intensity - 2.0-3.0 06/08/2018 Pt Cks9904 Hi intensity - 3.0-4.0 06/08/2018 Pt Vlv9105 PT 16.8 seconds 05/10/2018 Pt Rok7287 INR 1.4 05/10/2018 Pt Bxj8479 Low Intensity - 1.5-2.0 05/10/2018 Pt Ihr6467 Mod intensity - 2.0-3.0 05/10/2018 Pt Ssh5193 Hi intensity - 3.0-4.0 05/10/2018 Pt Jzt9388 PT 16.7 seconds 05/04/2018 Pt Uei7759 INR 1.4 05/04/2018 Pt Xvi3971 Low Intensity - 1.5-2.0 05/04/2018 Pt Jms7202 Mod intensity - 2.0-3.0 05/04/2018 Pt Vvc4945 Hi intensity - 3.0-4.0 05/04/2018 Free T4 Etf615 FREE T4 1.09 ng/dL 04/14/2018 Tsh Ord6 TSH (3rd IS) 2.36 uIU/mL 04/14/2018 Pt Yxo6634 PT 20.3 seconds 04/14/2018 Pt Ntl9750 INR 1.8 04/14/2018 Pt Lkp3506 Low Intensity - 1.5-2.0 04/14/2018 Pt Bfb0790 Mod intensity - 2.0-3.0 04/14/2018 Pt Avy9926 Hi intensity - 3.0-4.0 04/14/2018 Lipid Ord30 CHOL 149 mg/dL 04/14/2018 Lipid Ord30 HDL 49.0 mg/dl 04/14/2018 Lipid Ord30 TRIG 161 mg/dL 04/14/2018 Lipid Ord30 LDL 68 mg/dL 04/14/2018 Lipid Ord30 C/HDL 3.0 Ratio 04/14/2018 %Hba1C Iiu278 % HbA1c 07221-5 5.9 % 04/14/2018 %Hba1C Nrs502 Gluc Ave 123 mg/dL 04/14/2018 Comp Metabolic Ylf801 NA 140 mEq/L 04/14/2018 Comp Metabolic Jma769 K 4.1 mEq/L 04/14/2018 Comp Metabolic Xou748 CL 105 mEq/L 04/14/2018 Comp Metabolic Dht194 CO2 28.0 mEq/L 04/14/2018 Comp Metabolic Lia733 AN ION GAP 11 04/14/2018 Comp Metabolic Did588 GL UCOSE 112 mg/dL 04/14/2018 Comp Metabolic Joa186 Cr eat 1.0 mg/dL 04/14/2018 Comp Metabolic Mlp612 eG FR 58 ml/min/1.73m2 04/14 Comp Metabolic Nfn270 BUN 20 mg/dL 04/14/2018 Comp Metabolic Gvb399 B/ C Ratio 20.2 Ratio 04/14/2018 Comp Metabolic Aqv703 CA LCIUM 10.0 mg/dL 04/14/2018 Comp Metabolic Wda918 AL K PHOS 51 U/L 04/14/2018 Comp Metabolic Qju815 T(SGOT) 24 U/L 04/14/2018 Comp Metabolic Oqd966 AL T(SGPT) 21 U/L 04/14/2018 Comp Metabolic Uan758 BI LI T 0.8 mg/dL 04/14/2018 Comp Metabolic Knb647 AL BUMIN 4.2 g/dL 04/14/2018 Comp Metabolic Xlj873 TP RO 7.1 g/dL 04/14/2018 Comp Metabolic Weg608 GL OB 2.9 g/dL 04/14/2018 Comp Metabolic Fyr981 A/ G Ratio 1.5 Ratio 04/14/2018 Comp Metabolic Rvn429 Os mo 283 mOsmo 04/14/2018 Cbc With [...] 30.7 pg 04/14/2018 Cbc With Differential Ord2 Powell% 10.6 % 04/14/2018 Cbc With Differential Ord2 [...] 1.18 K/ul 04/14/2018 Cbc With Differential Ord2 Powell ABS# 0.5 K/ul 04/14/2018 Cbc With Differential Ord2 Eos ABS# 0.2 K/ul 04/14/2018 Cbc With Differential Ord2 Baso ABS# 0.1 K/ul 04/14/2018 Pt Rke7250 PT 29.3 seconds 02/11/2018 Pt Shd6335 INR 2.8 02/11/2018 Pt Uto9321 Low Intensity - 1.5-2.0 02/11/2018 Pt Dyc1131 Mod intensity - 2.0-3.0 02/11/2018 Pt Qip9569 Hi intensity - 3.0-4.0 02/11/2018 Comp Metabolic Zkx064 NA 141 mEq/L 01/05/2018 Comp Metabolic Vvo921 K 3.7 mEq/L 01/05/2018 Comp Metabolic Ijy334 CL 102 mEq/L 01/05/2018 Comp Metabolic Zed655 CO2 29.0 mEq/L 01/05/2018 Comp Metabolic Oeg263 AN ION GAP 14 01/05/2018 Comp Metabolic Uca524 GL UCOSE 136 mg/dL 01/05/2018 Comp Metabolic Srz363 Cr eat 1.0 mg/dL 01/05/2018 Comp Metabolic Wcz618 eG FR 61 ml/min/1.73m2 01/05 Comp Metabolic Hji618 BUN 22 mg/dL 01/05/2018 Comp Metabolic Gaz741 B/ C Ratio 22.9 Ratio 01/05/2018 Comp Metabolic Bxf964 CA LCIUM 9.7 mg/dL 01/05/2018 Comp Metabolic Ahv214 AL K PHOS 57 U/L 01/05/2018 Comp Metabolic Vsu028 T(SGOT) 21 U/L 01/05/2018 Comp Metabolic Pge573 AL T(SGPT) 19 U/L 01/05/2018 Comp Metabolic Mhl600 BI LI T 0.9 mg/dL 01/05/2018 Comp Metabolic Cys774 AL BUMIN 4.1 g/dL 01/05/2018 Comp Metabolic Xem443 TP RO 7.1 g/dL 01/05/2018 Comp Metabolic Bhs833 GL OB 3.0 g/dL 01/05/2018 Comp Metabolic Day602 A/ G Ratio 1.4 Ratio 01/05/2018 Comp Metabolic Hyy945 Os mo 287 mOsmo 01/05/2018 Free T4 Pye596 FREE T4 1.05 ng/dL 01/05/2018 %Hba1C Bxh558 % HbA1c 52588-6 6.0 % 01/05/2018 %Hba1C Zwc989 Gluc Ave 126 mg/dL 01/05/2018 Cbc With [...] 30.6 pg 01/05/2018 Cbc With Differential Ord2 Powell% 10.5 % 01/05/2018 Cbc With Differential Ord2 [...] 1.27 K/ul 01/05/2018 Cbc With Differential Ord2 Powell ABS# 0.5 K/ul 01/05/2018 Cbc With Differential Ord2 Eos ABS# 0.2 K/ul 01/05/2018 Cbc With Differential Ord2 Baso ABS# 0.1 K/ul 01/05/2018 Pt Iey7457 PT 20.7 seconds 01/05/2018 Pt Lhp9683 INR 1.8 01/05/2018 Pt Xwc6075 Low Intensity - 1.5-2.0 01/05/2018 Pt Qvl2081 Mod intensity - 2.0-3.0 01/05/2018 Pt Koh5787 Hi intensity - 3.0-4.0 01/05/2018 Tsh Ord6 TSH (3rd IS) 2.34 uIU/mL 01/05/2018 Lipid Ord30 CHOL 156 mg/dL 01/05/2018 Lipid Ord30 HDL 48.0 mg/dl 01/05/2018 Lipid Ord30 TRIG 207 mg/dL 01/05/2018 Lipid Ord30 LDL 67 mg/dL 01/05/2018 Lipid Ord30 C/HDL 3.3 Ratio 01/05/2018 Pt Feu9403 PT 28.3 seconds 11/26/2017 Pt Ivq6625 INR 2.6 11/26/2017 Pt Img9199 Low Intensity - 1.5-2.0 11/26/2017 Pt Ink7143 Mod intensity - 2.0-3.0 11/26/2017 Pt Mld6751 Hi intensity - 3.0-4.0 11/26/2017 Pt Vgy3328 PT 36.5 seconds 11/19/2017 Pt Uwp6698 INR 3.6 11/19/2017 Pt Iqe2391 Low Intensity - 1.5-2.0 11/19/2017 Pt Flp6863 Mod intensity - 2.0-3.0 11/19/2017 Pt Pxx8870 Hi intensity - 3.0-4.0 11/19/2017 Pt Kfh2900 PT 22.9 seconds 10/15/2017 Pt Vgw7120 INR 2.0 10/15/2017 Pt Rio7183 Low Intensity - 1.5-2.0 10/15/2017 Pt Gwj4750 Mod intensity - 2.0-3.0 10/15/2017 Pt Tmr0896 Hi intensity - 3.0-4.0 10/15/2017 Pt Pzb6979 PT 25.9 seconds 10/01/2017 Pt Mww5755 INR 2.4 10/01/2017 Pt Jmw5915 Low Intensity - 1.5-2.0 10/01/2017 Pt Wlg3778 Mod intensity - 2.0-3.0 10/01/2017 Pt Kbu3941 Hi intensity - 3.0-4.0 10/01/2017 Pt Tol6016 PT 20.6 seconds 09/24/2017 Pt Cvr4647 INR 1.8 09/24/2017 Pt Lsp3811 Low Intensity - 1.5-2.0 09/24/2017 Pt Cks4216 Mod intensity - 2.0-3.0 09/24/2017 Pt Lbs5441 Hi intensity - 3.0-4.0 09/24/2017 Pt Wxu7894 PT 21.0 seconds 09/15/2017 Pt Gmg8769 INR 1.8 09/15/2017 Pt Ckf1906 Low Intensity - 1.5-2.0 09/15/2017 Pt Lmq4106 Mod intensity - 2.0-3.0 09/15/2017 Pt Wvj1903 Hi intensity - 3.0-4.0 09/15/2017 Pt Vzx1144 PT 19.0 seconds 09/03/2017 Pt Hfm3777 INR 1.6 09/03/2017 Pt Wyd5457 Low Intensity - 1.5-2.0 09/03/2017 Pt Ncv2523 Mod intensity - 2.0-3.0 09/03/2017 Pt Uir6398 Hi intensity - 3.0-4.0 09/03/2017 Pt Sji0118 PT 17.6 seconds 08/23/2017 Pt Azv1541 INR 1.5 08/23/2017 Pt Yro1920 Low Intensity - 1.5-2.0 08/23/2017 Pt Vxn6964 Mod intensity - 2.0-3.0 08/23/2017 Pt Brg6129 Hi intensity - 3.0-4.0 08/23/2017 Pt Tpg2614 PT 12.7 seconds 08/20/2017 Pt Tnu0174 INR 1.0 08/20/2017 Pt Qwj9495 Low Intensity - 1.5-2.0 08/20/2017 Pt Bji5350 Mod intensity - 2.0-3.0 08/20/2017 Pt Dwp4301 Hi intensity - 3.0-4.0 08/20/2017 Pt Xie1533 PT 12.9 seconds 08/17/2017 Pt Mks1525 INR 1.0 08/17/2017 Pt Naz5132 Low Intensity - 1.5-2.0 08/17/2017 Pt Sae5955 Mod intensity - 2.0-3.0 08/17/2017 Pt Zzd5690 Hi intensity - 3.0-4.0 08/17/2017 Pt Fqm6089 PT 18.5 seconds 08/10/2017 Pt Xfu7063 INR 1.6 08/10/2017 Pt Gke9960 Low Intensity - 1.5-2.0 08/10/2017 Pt Iwa7705 Mod intensity - 2.0-3.0 08/10/2017 Pt Wbp7859 Hi intensity - 3.0-4.0 08/10/2017 Tsh Ord6 [...] 29.3 pg 05/27/2017 Cbc With Differential Ord2 Powell% 8.1 % 05/27/2017 Cbc With Differential Ord2 [...] 1.11 K/ul 05/27/2017 Cbc With Differential Ord2 Powell ABS# 0.6 K/ul 05/27/2017 Cbc With Differential Ord2 Eos ABS# 0.2 K/ul 05/27/2017 Cbc With Differential Ord2 Baso ABS# 0.1 K/ul 05/27/2017 Pt Orn8370 PT 28.2 seconds 05/27/2017 Pt Zub3004 INR 2.6 05/27/2017 Pt Wid6119 Low Intensity - 1.5-2.0 05/27/2017 Pt Qhe5888 Mod intensity - 2.0-3.0 05/27/2017 Pt Xaq0743 Hi intensity - 3.0-4.0 05/27/2017 Lipid Ord30 CHOL 167 mg/dL 05/27/2017 Lipid Ord30 HDL 49.0 mg/dl 05/27/2017 Lipid Ord30 TRIG 347 mg/dL 05/27/2017 Lipid Ord30 LDL 49 mg/dL 05/27/2017 Lipid Ord30 C/HDL 3.4 Ratio 05/27/2017 Magnesium Ord90 Mag 1.4 mg/dL 05/27/2017 %Hba1C Chu732 % HbA1c 48181-7 5.9 % 05/27/2017 %Hba1C Gad890 Gluc Ave 123 mg/dL 05/27/2017 Comp Metabolic Gns877 NA 138 mEq/L 05/27/2017 Comp Metabolic Wkz564 K 4.1 mEq/L 05/27/2017 Comp Metabolic Hxd484 CL 101 mEq/L 05/27/2017 Comp Metabolic Oqg061 CO2 31.0 mEq/L 05/27/2017 Comp Metabolic Cep660 AN ION GAP 10 05/27/2017 Comp Metabolic Diw390 GL UCOSE 117 mg/dL 05/27/2017 Comp Metabolic Pyz522 Cr eat 0.9 mg/dL 05/27/2017 Comp Metabolic Fpf797 eG FR 62 ml/min/1.73m2 05/27 Comp Metabolic Cni650 BUN 25 mg/dL 05/27/2017 Comp Metabolic Kke214 B/ C Ratio 26.6 Ratio 05/27/2017 Comp Metabolic Wrs511 CA LCIUM 9.5 mg/dL 05/27/2017 Comp Metabolic Xni348 AL K PHOS 73 U/L 05/27/2017 Comp Metabolic Pub686 T(SGOT) 18 U/L 05/27/2017 Comp Metabolic Dgg273 AL T(SGPT) 12 U/L 05/27/2017 Comp Metabolic Vyr722 BI LI T 0.5 mg/dL 05/27/2017 Comp Metabolic Haq065 AL BUMIN 4.1 g/dL 05/27/2017 Comp Metabolic Mkm101 TP RO 7.1 g/dL 05/27/2017 Comp Metabolic Uhi865 GL OB 3.0 g/dL 05/27/2017 Comp Metabolic Ape879 A/ G Ratio 1.3 Ratio 05/27/2017 Comp Metabolic Tri184 Os mo 281 mOsmo 05/27/2017 Free T4 Zmo936 FREE T4 0.91 ng/dL 05/27/2017 Pt Ujn3293 PT 29.2 seconds 04/16/2017 Pt Oae9832 INR 2.7 04/16/2017 Pt Rug7062 Low Intensity - 1.5-2.0 04/16/2017 Pt Pgq0471 Mod intensity - 2.0-3.0 04/16/2017 Pt Fhj2289 Hi intensity - 3.0-4.0 04/16/2017 Pt Wbh9146 PT 30.7 seconds 03/31/2017 Pt Uqk5193 INR 2.9 03/31/2017 Pt Jyj3337 Low Intensity - 1.5-2.0 03/31/2017 Pt Vob6601 Mod intensity - 2.0-3.0 03/31/2017 Pt Vrg1278 Hi intensity - 3.0-4.0 03/31/2017 Pt Mpl5227 PT 21.3 seconds 03/26/2017 Pt Fxh3636 INR 1.9 03/26/2017 Pt Yne7417 Low Intensity - 1.5-2.0 03/26/2017 Pt Lvq7343 Mod intensity - 2.0-3.0 03/26/2017 Pt Xrj9402 Hi intensity - 3.0-4.0 03/26/2017 Pt Ffd1986 PT 19.8 seconds 03/22/2017 Pt Ehh3534 INR 1.7 03/22/2017 Pt Aak8587 Low Intensity - 1.5-2.0 03/22/2017 Pt Pcg1298 Mod intensity - 2.0-3.0 03/22/2017 Pt Luq6587 Hi intensity - 3.0-4.0 03/22/2017 Pt Ojp9836 PT 15.6 seconds 03/19/2017 Pt Vnt5374 INR 1.3 03/19/2017 Pt Gor5921 Low Intensity - 1.5-2.0 03/19/2017 Pt Kms1840 Mod intensity - 2.0-3.0 03/19/2017 Pt Crc5091 Hi intensity - 3.0-4.0 03/19/2017 Pt Dmz5297 PT 13.7 seconds 03/15/2017 Pt Cir7830 INR 1.1 03/15/2017 Pt Awa2844 Low Intensity - 1.5-2.0 03/15/2017 Pt Fbv2075 Mod intensity - 2.0-3.0 03/15/2017 Pt Zib3254 Hi intensity - 3.0-4.0 03/15/2017 Pt Spt7107 PT 25.8 seconds 01/28/2017 Pt Eqq4079 INR 2.4 01/28/2017 Pt Afd9625 Low Intensity - 1.5-2.0 01/28/2017 Pt Jme1390 Mod intensity - 2.0-3.0 01/28/2017 Pt Jat6823 Hi intensity - 3.0-4.0 01/28/2017 %Hba1C Ngw534 % HbA1c 36630-6 6.4 % 10/23/2016 %Hba1C Gcg890 Gluc Ave 137 mg/dL 10/23/2016 Comp Metabolic Icd079 NA 138 mEq/L 10/23/2016 Comp Metabolic Mtz453 K 3.4 mEq/L 10/23/2016 Comp Metabolic Lhb710 CL 100 mEq/L 10/23/2016 Comp Metabolic Yyw342 CO2 30.0 mEq/L 10/23/2016 Comp Metabolic Fcm806 AN ION GAP 11 10/23/2016 Comp Metabolic Ham210 GL UCOSE 139 mg/dL 10/23/2016 Comp Metabolic Uaa585 Cr eat 0.9 mg/dL 10/23/2016 Comp Metabolic Osg464 eG FR 62 ml/min/1.73m2 10/23 Comp Metabolic Izv588 BUN 22 mg/dL 10/23/2016 Comp Metabolic Hvh318 B/ C Ratio 23.4 Ratio 10/23/2016 Comp Metabolic Fpm859 CA LCIUM 8.7 mg/dL 10/23/2016 Comp Metabolic Lci831 AL K PHOS 66 U/L 10/23/2016 Comp Metabolic Rno814 T(SGOT) 20 U/L 10/23/2016 Comp Metabolic Ade189 AL T(SGPT) 10 U/L 10/23/2016 Comp Metabolic Mar608 BI LI T 0.5 mg/dL 10/23/2016 Comp Metabolic Wwq570 AL BUMIN 3.5 g/dL 10/23/2016 Comp Metabolic Esk475 TP RO 6.3 g/dL 10/23/2016 Comp Metabolic Rda217 GL OB 2.8 g/dL 10/23/2016 Comp Metabolic Vtm437 A/ G Ratio 1.3 Ratio 10/23/2016 Comp Metabolic Jsx778 Os mo 281 mOsmo 10/23/2016 Pt Phw0839 PT 26.8 seconds 10/23/2016 Pt Uev3892 INR 2.7 10/23/2016 Pt Qbl1671 Low Intensity - 1.5-2.0 10/23/2016 Pt Pvb0693 Mod intensity - 2.0-3.0 10/23/2016 Pt Yfm1003 Hi intensity - 3.0-4.0 10/23/2016 Pt Sgk7011 PT 28.3 seconds 09/25/2016 Pt Jmb0293 INR 2.8 09/25/2016 Pt Kxl3061 Low Intensity - 1.5-2.0 09/25/2016 Pt Afc7915 Mod intensity - 2.0-3.0 09/25/2016 Pt Xze0304 Hi intensity - 3.0-4.0 09/25/2016 Metabolic Ord15 [...] Metabolic Ord15 CALCIUM 8.8 mg/dL 09/25/2016 Pt Wwf5599 PT 30.6 seconds 09/11/2016 Pt Jpj3689 INR 3.2 09/11/2016 Pt Zjk0442 Low Intensity - 1.5-2.0 09/11/2016 Pt Jtg8951 Mod intensity - 2.0-3.0 09/11/2016 Pt Krr0074 Hi intensity - 3.0-4.0 09/11/2016 Comp Metabolic Udq670 NA 138 mEq/L 09/11/2016 Comp Metabolic Pfv397 K 4.4 mEq/L 09/11/2016 Comp Metabolic Loj146 CL 103 mEq/L 09/11/2016 Comp Metabolic Dxi803 CO2 31.0 mEq/L 09/11/2016 Comp Metabolic Cvo827 AN ION GAP 8 09/11/2016 Comp Metabolic Zqm381 GL UCOSE 146 mg/dL 09/11/2016 Comp Metabolic Koj939 Cr eat 1.0 mg/dL 09/11/2016 Comp Metabolic Gag547 eG FR 60 ml/min/1.73m2 09/11 Comp Metabolic Wcr365 BUN 16 mg/dL 09/11/2016 Comp Metabolic Ooc695 B/ C Ratio 16.5 Ratio 09/11/2016 Comp Metabolic Zuv601 CA LCIUM 8.7 mg/dL 09/11/2016 Comp Metabolic Jxk469 AL K PHOS 52 U/L 09/11/2016 Comp Metabolic Mbr525 T(SGOT) 19 U/L 09/11/2016 Comp Metabolic Tgy958 AL T(SGPT) 11 U/L 09/11/2016 Comp Metabolic Vvs854 BI LI T 0.7 mg/dL 09/11/2016 Comp Metabolic Tpl248 AL BUMIN 3.3 g/dL 09/11/2016 Comp Metabolic Lqu067 TP RO 5.8 g/dL 09/11/2016 Comp Metabolic Jwo849 GL OB 2.5 g/dL 09/11/2016 Comp Metabolic Yvg768 A/ G Ratio 1.3 Ratio 09/11/2016 Comp Metabolic Pda270 Os mo 280 mOsmo 09/11/2016 C-Reactive Protein Qnt Crqnt CRP 0.1 mg/dl 08/21/2016 Comp Metabolic Fje347 NA 139 mEq/L 08/21/2016 Comp Metabolic Yge300 K 4.1 mEq/L 08/21/2016 Comp Metabolic Wva074 CL 102 mEq/L 08/21/2016 Comp Metabolic Iqw246 CO2 30.0 mEq/L 08/21/2016 Comp Metabolic Bcn602 AN ION GAP 11 08/21/2016 Comp Metabolic Azh575 GL UCOSE 148 mg/dL 08/21/2016 Comp Metabolic Ujt307 Cr eat 1.0 mg/dL 08/21/2016 Comp Metabolic Wyu670 eG FR 55 ml/min/1.73m2 08/21 Comp Metabolic Qks140 BUN 21 mg/dL 08/21/2016 Comp Metabolic Vzd404 B/ C Ratio 20.2 Ratio 08/21/2016 Comp Metabolic Bcx977 CA LCIUM 9.4 mg/dL 08/21/2016 Comp Metabolic Kes794 AL K PHOS 63 U/L 08/21/2016 Comp Metabolic Ito154 T(SGOT) 23 U/L 08/21/2016 Comp Metabolic Stt219 AL T(SGPT) 16 U/L 08/21/2016 Comp Metabolic Ffq447 BI LI T 0.6 mg/dL 08/21/2016 Comp Metabolic Tdq369 AL BUMIN 3.9 g/dL 08/21/2016 Comp Metabolic Wcp451 TP RO 6.8 g/dL 08/21/2016 Comp Metabolic Qdc489 GL OB 2.9 g/dL 08/21/2016 Comp Metabolic Dgb534 A/ G Ratio 1.4 Ratio 08/21/2016 Comp Metabolic Nlf194 Os mo 283 mOsmo 08/21/2016 Sed Rate Ord21 ESR 16 mm/hr 08/21/2016 Pt Mvj8668 PT 27.2 seconds 08/21/2016 Pt Xtn7031 INR 2.7 08/21/2016 Pt Cee0972 Low Intensity - 1.5-2.0 08/21/2016 Pt Nqx8015 Mod intensity - 2.0-3.0 08/21/2016 Pt Lzl6143 Hi intensity - 3.0-4.0 08/21/2016 Magnesium Ord90 Mag 1.9 mg/dL 08/21/2016 Pt Wsy9794 PT 25.9 seconds 06/17/2016 Pt Fbn7162 INR 2.5 06/17/2016 Pt Dlb8977 Low Intensity - 1.5-2.0 06/17/2016 Pt Agt4823 Mod intensity - 2.0-3.0 06/17/2016 Pt Ojt9870 Hi intensity - 3.0-4.0 06/17/2016 Tsh Ord6 hTSH II 2.13 uIU/mL 06/08/2016 Free T4 Vkq758 FREE T4 0.79 ng/dL 06/08/2016 Cbc With [...] 26.8 pg 06/08/2016 Cbc With Differential Ord2 Powell% 12.0 % 06/08/2016 Cbc With Differential Ord2 [...] 1.40 K/ul 06/08/2016 Cbc With Differential Ord2 Powell ABS# 0.7 K/ul 06/08/2016 Cbc With Differential Ord2 Eos ABS# 0.3 K/ul 06/08/2016 Cbc With Differential Ord2 Baso ABS# 0.1 K/ul 06/08/2016 %Hba1C Ner220 % HbA1c 87496-9 6.2 % 06/08/2016 %Hba1C Pui301 Gluc Ave 131 mg/dL 06/08/2016 Comp Metabolic Wmr229 NA 138 mEq/L 06/08/2016 Comp Metabolic Hvz550 K 3.9 mEq/L 06/08/2016 Comp Metabolic Wvw153 CL 105 mEq/L 06/08/2016 Comp Metabolic Jnt897 CO2 27.0 mEq/L 06/08/2016 Comp Metabolic Vrl381 AN ION GAP 10 06/08/2016 Comp Metabolic Zge201 GL UCOSE 127 mg/dL 06/08/2016 Comp Metabolic Sdm019 Cr eat 1.0 mg/dL 06/08/2016 Comp Metabolic Erh590 eG FR 59 ml/min/1.73m2 06/08 Comp Metabolic Nkn963 BUN 19 mg/dL 06/08/2016 Comp Metabolic Zwy997 B/ C Ratio 19.4 Ratio 06/08/2016 Comp Metabolic Fyj722 CA LCIUM 9.2 mg/dL 06/08/2016 Comp Metabolic Swt986 AL K PHOS 77 U/L 06/08/2016 Comp Metabolic Cbi440 T(SGOT) 19 U/L 06/08/2016 Comp Metabolic Xtv088 AL T(SGPT) 13 U/L 06/08/2016 Comp Metabolic Hpp088 BI LI T 0.5 mg/dL 06/08/2016 Comp Metabolic Zjf862 AL BUMIN 3.8 g/dL 06/08/2016 Comp Metabolic Ney658 TP RO 6.6 g/dL 06/08/2016 Comp Metabolic Mdg092 GL OB 2.8 g/dL 06/08/2016 Comp Metabolic Ddu103 A/ G Ratio 1.4 Ratio 06/08/2016 Comp Metabolic Zwu958 Os mo 280 mOsmo 06/08/2016 Pt Meq8365 PT 36.1 seconds 06/08/2016 Pt Vxw0845 INR 3.9 06/08/2016 Pt Kck9252 Low Intensity - 1.5-2.0 06/08/2016 Pt Cnt6148 Mod intensity - 2.0-3.0 06/08/2016 Pt Pyd2077 Hi intensity - 3.0-4.0 06/08/2016 Lipid Ord30 CHOL 149 mg/dL 06/08/2016 Lipid Ord30 HDL 46.0 mg/dl 06/08/2016 Lipid Ord30 TRIG 279 mg/dL 06/08/2016 Lipid Ord30 LDL 47 mg/dL 06/08/2016 Lipid Ord30 C/HDL 3.2 Ratio 06/08/2016 Pt Uof1585 PT 30.9 seconds 02/12/2016 Pt Jfk4719 INR 3.2 02/12/2016 Pt Bcu4282 Low Intensity - 1.5-2.0 02/12/2016 Pt Glf1181 Mod intensity - 2.0-3.0 02/12/2016 Pt Qqu7914 Hi intensity - 3.0-4.0 02/12/2016 Free T4 Oxt392 FREE T4 1.24 ng/dL 09/27/2015 %Hba1C Etk110 % HbA1c 60983-2 6.4 % 09/27/2015 %Hba1C Cxr586 Gluc Ave 137 mg/dL 09/27/2015 Tsh Ord6 hTSH II 0.37 uIU/mL 09/27/2015 Pt Xps5180 PT 26.2 seconds 09/27/2015 Pt Ktb6025 INR 2.5 09/27/2015 Pt Weu0670 Low Intensity - 1.5-2.0 09/27/2015 Pt Ndw6791 Mod intensity - 2.0-3.0 09/27/2015 Pt Drg5859 Hi intensity - 3.0-4.0 09/27/2015 Pt Cxg4494 PT 27.6 seconds 2015 Pt Mok3456 INR 2.7 2015 Pt Qog9772 Low Intensity - 1.5-2.0 2015 Pt Ldv9594 Mod intensity - 2.0-3.0 2015 Pt Lau0770 Hi intensity - 3.0-4.0 2015 %Hba1C Qmk556 % HbA1c 39368-2 6.1 % 06/11/2015 %Hba1C Jib598 Gluc Ave 128 mg/dL 06/11/2015 Cbc With [...] Ord2 RDW 15.8 % 06/10/2015 Comp Metabolic Psp273 NA 139 mEq/L 06/10/2015 Comp Metabolic Van887 K 4.1 mEq/L 06/10/2015 Comp Metabolic Eex316 CL 105 mEq/L 06/10/2015 Comp Metabolic Wql070 CO2 27.0 mEq/L 06/10/2015 Comp Metabolic Fml514 AN ION GAP 11 06/10/2015 Comp Metabolic Irh205 GL UCOSE 127 mg/dL 06/10/2015 Comp Metabolic Huu652 Cr eat 1.0 mg/dL 06/10/2015 Comp Metabolic Evr437 eG FR 59 ml/min/1.73m2 06/10 Comp Metabolic Ebr741 BUN 21 mg/dL 06/10/2015 Comp Metabolic Odp723 B/ C Ratio 21.2 Ratio 06/10/2015 Comp Metabolic Otd724 CA LCIUM 9.2 mg/dL 06/10/2015 Comp Metabolic Wrt111 AL K PHOS 87 U/L 06/10/2015 Comp Metabolic Pxp201 T(SGOT) 20 U/L 06/10/2015 Comp Metabolic Bes105 AL T(SGPT) 17 U/L 06/10/2015 Comp Metabolic Mxw988 BI LI T 0.4 mg/dL 06/10/2015 Comp Metabolic Zln388 AL BUMIN 4.1 g/dL 06/10/2015 Comp Metabolic Zbq326 TP RO 7.2 g/dL 06/10/2015 Comp Metabolic Hud266 GL OB 3.1 g/dL 06/10/2015 Comp Metabolic Mrd815 A/ G Ratio 1.3 Ratio 06/10/2015 Comp Metabolic Yll882 Os mo 282 mOsmo 06/10/2015 Tsh Ord6 hTSH II 0.86 uIU/mL 06/10/2015 Lipid Ord30 CHOL 161 mg/dL 06/10/2015 Lipid Ord30 HDL 49.0 mg/dl 06/10/2015 Lipid Ord30 TRIG 208 mg/dL 06/10/2015 Lipid Ord30 LDL 70 mg/dL 06/10/2015 Lipid Ord30 C/HDL 3.3 Ratio 06/10/2015 Pt Ogn5836 PT 25.0 seconds 04/09/2015 Pt Vrs4220 INR 2.4 04/09/2015 Pt Yij7126 Low Intensity - 1.5-2.0 04/09/2015 Pt Irx2838 Mod intensity - 2.0-3.0 04/09/2015 Pt Qve0494 Hi intensity - 3.0-4.0 04/09/2015 Free T4 Thq373 FREE T4 1.05 ng/dL 01/22/2015 Pt Esg9328 PT 27.2 seconds 01/22/2015 Pt Zoo3549 INR 2.6 01/22/2015 Pt Lvo9809 Low Intensity - 1.5-2.0 01/22/2015 Pt Flr4241 Mod intensity - 2.0-3.0 01/22/2015 Pt Obu9493 Hi intensity - 3.0-4.0 01/22/2015 Cbc With [...] Differential Ord2 RDW 15.2 % 01/22/2015 B12 Vwa182 B12 402.00 pg/ml 01/22/2015 Tsh Ord6 hTSH II 0.65 uIU/mL 01/22/2015 Lipid Ord30 CHOL 166 mg/dL 01/22/2015 Lipid Ord30 HDL 48.0 mg/dl 01/22/2015 Lipid Ord30 TRIG 264 mg/dL 01/22/2015 Lipid Ord30 LDL 65 mg/dL 01/22/2015 Lipid Ord30 C/HDL 3.5 Ratio 01/22/2015 Comp Metabolic Was764 NA 138 mEq/L 01/22/2015 Comp Metabolic Zlp763 K 4.1 mEq/L 01/22/2015 Comp Metabolic Nch602 CL 104 mEq/L 01/22/2015 Comp Metabolic Vzb015 CO2 29.0 mEq/L 01/22/2015 Comp Metabolic Yzx504 AN ION GAP 9 01/22/2015 Comp Metabolic Wls825 GL UCOSE 106 mg/dL 01/22/2015 Comp Metabolic Jyl515 Cr eat 0.9 mg/dL 01/22/2015 Comp Metabolic Ygx722 eG FR 63 ml/min/1.73m2 01/22 Comp Metabolic Wjv254 BUN 21 mg/dL 01/22/2015 Comp Metabolic Jbf533 B/ C Ratio 22.3 Ratio 01/22/2015 Comp Metabolic Nem962 CA LCIUM 9.4 mg/dL 01/22/2015 Comp Metabolic Ttl854 AL K PHOS 83 U/L 01/22/2015 Comp Metabolic Jhl122 T(SGOT) 23 U/L 01/22/2015 Comp Metabolic Dju500 AL T(SGPT) 18 U/L 01/22/2015 Comp Metabolic Yfn157 BI LI T 0.8 mg/dL 01/22/2015 Comp Metabolic Ltl175 AL BUMIN 4.2 g/dL 01/22/2015 Comp Metabolic Xhy653 TP RO 7.3 g/dL 01/22/2015 Comp Metabolic Aqn108 GL OB 3.1 g/dL 01/22/2015 Comp Metabolic Ijn788 A/ G Ratio 1.4 Ratio 01/22/2015 Comp Metabolic Kxb437 Os mo 279 mOsmo 01/22/2015 Review of [...] Procedure Codes Date THER/PROPH/DIAG INJ SC/IM CPT-4: 60118 09/02/2018 TRIAMCINOLONE ACET I [place] NOS CPT-4: J3301 09/02/2018 URINALYSIS NONAUTO W /O SCOPE CPT-4: 14404 03/05/2017 Vital Signs Date Vital 09/02/2018 Blood Pressure 1: 128/72 Code: 8480-6 BMI: 38.2 Code: 25805-9 Heart Rate 1: 80 bpm Height: 5'1" SpO2: 98% Weight: 202 lbs 04/14/2018 Blood Pressure 1: 116/78 Code: 8480-6 BMI: 41.6 Code: 02171-2 Heart Rate 1: 72 bpm Height: 5'1" SpO2: 98% Weight: 220 lbs 01/18/2018 Blood Pressure 1: 132/74 Code: 8480-6 BMI: 43.5 Code: 90663-8 Heart Rate 1: 70 bpm Height: 5'1" SpO2: 97% Weight: 230 lbs 01/04/2018 Blood Pressure 1: 134/76 Code: 8480-6 BMI: 42.7 Code: 94644-4 Heart Rate 1: 83 bpm Height: 5'1" SpO2: 98% Weight: 226 lbs 09/23/2017 Blood Pressure 1: 124/76 Code: 8480-6 BMI: 42.3 Code: 75284-9 Heart Rate 1: 94 bpm Height: 5'1" SpO2: 96% Weight: 224 lbs 05/27/2017 Blood Pressure 1: 146/78 Code: 8480-6 BMI: 41.4 Code: 03861-3 Heart Rate 1: 85 bpm Height: 5'1" SpO2: 98% Weight: 219 lbs 02/24/2017 Blood Pressure 1: 138/66 Code: 8480-6 BMI: 41.4 Code: 26274-0 Heart Rate 1: 78 bpm Height: 5'1" SpO2: 97% Weight: 219 lbs 11/02/2016 Blood Pressure 1: 144/72 Code: 8480-6 BMI: 46.1 Code: 02538-9 Heart Rate 1: 78 bpm Height: 5'1" SpO2: 98% Weight: 244 lbs 09/30/2016 Blood Pressure 1: 130/76 Code: 8480-6 BMI: 45.0 Code: 82873-4 Heart Rate 1: 86 bpm Height: 5'1" SpO2: 98% Weight: 238 lbs 09/10/2016 Blood Pressure 1: 136/68 Code: 8480-6 BMI: 46.3 Code: 21849-5 Heart Rate 1: 83 bpm Height: 5'1" SpO2: 98% Weight: 245 lbs 08/20/2016 Blood Pressure 1: 142/78 Code: 8480-6 BMI: 45.3 Code: 70773-3 Heart Rate 1: 84 bpm Height: 5'1" SpO2: 99% Weight: 240 lbs 06/08/2016 Blood Pressure 1: 134/76 Code: 8480-6 BMI: 44.2 Code: 83056-2 Heart Rate 1: 86 bpm Height: 5'1" SpO2: 96% Weight: 234 lbs 04/02/2016 Blood Pressure 1: 142/70 Code: 8480-6 BMI: 44.6 Code: 48098-0 Heart Rate 1: 78 bpm Height: 5'1" SpO2: 97% Weight: 236 lbs 01/14/2016 Blood Pressure 1: 146/72 Code: 8480-6 BMI: 44.2 Code: 99263-2 Heart Rate 1: 86 bpm Height: 5'1" SpO2: 96% Weight: 234 lbs 10/02/2015 Blood Pressure 1: 158/76 Code: 8480-6 BMI: 44.2 Code: 77427-5 Heart Rate 1: 67 bpm Height: 5'1" SpO2: 97% Weight: 234 lbs 07/15/2015 Blood Pressure 1: 200/90 Code: 8480-6 Blood Pressure 1: 148/78 Code: 8480-6 BMI: 44.0 Code: 89322-4 Heart Rate 1: 89 bpm Height: 5'1" SpO2: 97% Weight: 233 lbs 06/10/2015 Blood Pressure 1: 140/82 Code: 8480-6 BMI: 44.0 Code: 88390-7 Heart Rate 1: 78 bpm Height: 5'1" [...] ies fever 09/02/2018 None hypertension Quality kenji gabe hypertension 04/14/2018 None hypertension Onset and Resolution [...] Resolution ongoing 11/02/2016 None hypertension Quality kenji bernal hypertension 11/02/2016 None hypertension Blood Pressure Values [...] wearing crocs and there was a new croatian on the floor: her foot didn't move [...] Encounters Encounter Performer Loca tion Codes Date 85186 EST. PATIENT, LEVEL IV Diagnosis: Other acute sinusitis[ICD10: J01.80] Diagnosis: Other allergic rhinitis[ICD10: J30.89] Nata Almanza MD, [facility] CPT-4: 99671 09/02/2018 ([id number]) 15140 EST. P ATIENT, LEVEL IV Diagnosis: Essential (primary) hypertension[ICD10: I10] Diagnosis: Hypothyroidism, unspecified[ICD10: E03.9] Diagnosis: Impaired fasting glucose[ICD10: R73.01] Diagnosis: assisted (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[ICD10: Z79.01] Edna Almanza MD, [facility] CPT-4: 22452 04/14/2018 ([id number]) 76521 EST. P ATIENT, LEVEL III Diagnosis: Localized edema[ICD10: R60.0] Diagnosis: Gastro-esophageal reflux disease without esophagitis[ICD10: K21.9] Edna Almanza MD, [facility] CPT-4: 34245 01/18/2018 ([id number]) 12395 EST. P ATIENT, LEVEL IV Diagnosis: Gastro-esophageal reflux disease without esophagitis[ICD10: K21.9] Diagnosis: Localized edema[ICD10: R60.0] Diagnosis: Essential (primary) hypertension[ICD10: I10] Diagnosis: Hypothyroidism, unspecified[ICD10: E03.9] Diagnosis: Impaired fasting glucose[ICD10: R73.01] Edna Almanza MD, [facility] CPT-4: 39795 01/04/2018 ([id number]) 93221 EST. 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 P ATIENT, LEVEL IV Diagnosis: Essential (primary) hypertension[ICD10: I10] Diagnosis: Mixed hyperlipidemia[ICD10: E78.2] Diagnosis: Hypothyroidism, unspecified[ICD10: E03.9] Diagnosis: Impaired fasting glucose[ICD10: R73.01] Diagnosis: assisted (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[ICD10: Z79.01] Edna Almanza MD, [facility] CPT-4: 87835 05/27/2017 09206 EST. PATIENT, LEVEL III Diagnosis: Pain in right hip[ICD10: M25.551] Nata Almanza MD, [facility] CPT-4: 58626 02/24/2017 ([id number]) 71823 EST. P ATIENT, LEVEL IV Diagnosis: Essential (primary) hypertension[ICD10: I10] Diagnosis: Localized edema[ICD10: R60.0] Diagnosis: Pain in right hip[ICD10: M25.551] Sarai Almanza MD, [facility] CPT-4: 04460 11/02/2016 ([id number]) 08881 EST. P ATIENT, LEVEL IV Diagnosis: Essential (primary) hypertension[ICD10: I10] Diagnosis: Localized edema[ICD10: R60.0] Sarai Almanza MD, [facility] CPT-4: 99469 09/30/2016 04110 EST. PATIENT, LEVEL IV Diagnosis: Localized edema[ICD10: R60.0] Diagnosis: Pain in joints of left hand[ICD10: M25.542] Diagnosis: Pain in joints of right hand[ICD10: M25.541] Nata Almanza MD, [facility] CPT-4: 12824 09/10/2016 66340 EST. PATIENT, LEVEL IV Diagnosis: Localized edema[ICD10: R60.0] Diagnosis: Pain in joints of left hand[ICD10: M25.542] Diagnosis: Pain in joints of right hand[ICD10: M25.541] Diagnosis: Other fatigue[ICD10: R53.83] Nata Almanza MD, [facility] CPT-4: 93047 08/20/2016 46724 EST. PATIENT, LEVEL IV Diagnosis: Essential (primary) hypertension[ICD10: I10] Diagnosis: Other jail (current) drug therapy[ICD10: Z79.899] Diagnosis: Tinnitus, bilateral[ICD10: H93.13] Nata Almanza MD, [facility] CPT-4: 94317 06/08/2016 92854 EST. PATIENT, LEVEL IV Diagnosis: Other allergic rhinitis[ICD10: J30.89] Diagnosis: Acute laryngopharyngitis[ICD10: J06.0] [facility] CPT-4: 02394 04/02/2016 29193 EST. PATIENT, LEVEL IV Diagnosis: Left upper quadrant pain[ICD10: R10.12] [facility] CPT-4: 88386 01/14/2016 16530 EST. PATIENT, LEVEL IV Diagnosis: Pain in left shoulder[ICD10: M25.512] Diagnosis: Body mass index (BMI) 40.0-44.9, adult[ICD10: Z68.41] [facility] CPT-4: 13027 10/02/2015 05422 EST. PATIENT, LEVEL IV Diagnosis: Pain in left leg[ICD10: M79.605] Diagnosis: Other jail (current) drug therapy[ICD10: Z79.899] [facility] CPT-4: 70619 07/15/2015 ([id number]) 95122 EST. 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 09/02/2018 Appointment: Nata Hsu WPtel: [facility] (15 min) Moderate 09/02/2018 Patient Education: Patient [...] Hgb A1C 04/14/2018 Appointment: Edna Douglas [phone] (15 min) Moderate 04/14/2018 Patient Education: Patient [...] to further attempt to reduce peripheral edema. WGWR-spczsmxb-neicigcy prilosec BID and carafate QID -discussed low spice, low acidic diet 01/18/2018 Appointment: Ed[phone] [phone] (15 min) Moderate 01/18/2018 Patient Education: Patient [...] control. 01/04/2018 Appointment: [phone] [phone] (30 min) Complex 01/04/2018 Patient Education: Patient Medication Summary Completed 01/04/2018 Care Plan: SCREENINGMAMMOGRAPHYDIGITAL LOINC : 06800-2 Pending 01/04/2018 Visit Plan: Abdominal hernia - not able to be taken to surgery by local providers and pt has been seen at [facility] and that surgeon felt like [...] at home. 09/23/2017 Appointment: Sarai Almanza [facility]Ptel[facility] (15 min) Moderate 09/23/2017 Patient Education: Patient [...] to medications. 05/27/2017 Appointment: [facility] [phone] [phone] [place] (30 min) Complex 05/27/2017 Patient Education: [...] [place]. 02/24/2017 App[facility]ment: [facility]su [phone] [facility] (30 min) Complex 02/24/2017 Patient Education: [...] [place]. 11/02/2016 Appointment: [phone] [facility] [place] (15 min) Moderate 11/02/2016 Patient Education: Patient [...] peripheral edema. 09/30/2016 Appointment: Sarai Almanza WPtel: [facility] (15 min) Moderate 09/30/2016 Patient Education: Patient [...] peripheral edema. 09/10/2016 Appointment: Nata Hsu WPtel: [facility] (30 min) Complex 09/10/2016 Patient Education: Patient [...] peripheral edema. 08/20/2016 Appointment: Nata Hsu WPtel: [facility] (30 min) Complex 08/20/2016 Patient Education: Patient Medication Summary Completed 08/20/2016 Referral: Otf Lee [id number] [place] Referral Initiated 07/02/2016 Visit Plan: Chronic Anticoagulant [...] 06/08/2016 Care Plan: Referral Order SNOMED-CT : [id number] Pending 06/08/2016 Visit Plan: URI - Pt [...] spray. 04/02/2016 Appointment: Nata Hsu WPtel: [phone] [facility] [place] (30 min) Complex 04/02/2016 Patient Education: [...] acute pain 01/14/2016 Appointment: [phone] [phone] [place] (30 min) Complex 01/14/2016 Patient Education: Patient Medication Summary Completed 01/14/2016 Patient Education: Obesity Completed 01/14/2016 Care Plan: BMI Above normal followup DAVID F-MGMT EDUC & TRAIN 1 PT Pending 10/24/2015 Care Plan: X-RAY EXAM OF SHOULDER LOINC : 55996-9 Pending 10/24/2015 Visit Plan: Left shoulder pain [...] weight check. 10/02/2015 Appointment: Edna Douglas WPtel: [phone] (15 min) Moderate 10/02/2015 Patient Education: Patient [...] Completed 06/11/2015 Visit Plan: Hypertension - well alesha khaliled [...] Completed 06/10/2015 Appointment: Sarai Almanza WPtel: [phone] [facility] (15 min) Moderate 04/22/2015 Visit Plan: [...] surgical fixation - planning occurring at [facility]. Snoring - Sleep apnea symptoms [...] medications. 01/22/2015 Appointment: [phone] [facility] [place] New Patient 01/22/2015 Patient Education: Patient Medication Summary Completed 01/22/2015 Patient Education: Hypertension Completed 01/22/2015 [facility] [place] Referral Initiated Instructions Comment . Chronic Anticoagul [...] now - Will refer to Dr. Lee CONTINUE LASIX NE EDED FOR SWELLING CHECK [...] based on previous levels of control. . Hypertension - wel l controlled - [...] to further attempt to reduce peripheral edema. PIHL-ieajmscy-sobtyuic prilosec BID and carafate QID -discussed low [...] providers and pt has been seen at [facility] and that surgeon felt like [...] change in blood pressure readings at home. steroid shot today prednisone taper - 60mg [...] spray in the nasal steroid allergy spray. Come in Wednesday to [facility] [...] they worsen, or with other concerns. dr willis kaplan e the staff get [...] surgical fixation - planning occurring at [facility]. Snoring - Sleep apnea symptoms [...]
--- OUTSIDE RECORDS SUMMARY | 2020-01-16 22:46 | XMS REPORT | CCD ---
Author Author Kat Almanza Organization Sarai Almanza MD, [facility] Address [address] [place] [address] Phone Care Team Providers Care Merchandise Supervisor Name Role Phone PP Unavailable CCM Unavailable Summary Purpose Interface Exchange Insurance Providers Payer name Policy type / Coverage type Covered republican ID Effective Begin Date Effective End Date WPS Medicare Part B Medicare Part B [id number] 2017 Unknown Bankers [place] Medicare Part B [id number] 2017 Unknown Family history Father Diagnosis Age At Onset Hyperlipidemia Unknown Heart Attack Unknown Mother Diagnosis Age At Onset Arthritis Unknown Social History Social History Element Codes Description Effective Dates Marital status Unknown M arried Nathan 09/30/2016 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 Number of children Unknown 3 01/22/[address]: 636585234 Never smoker 01/22/[address]: 030111919 Never drinks alcohol 01/22/2015 Allergies, Adverse Reactions, Alerts Substance Reaction Codes Entered Date Inactivated Date Status * NO KNOWN DRUG ORIN RGIES Unknown 01/22/2015 No Inactive Date Active Past Medical History Illness Codes Condition Status Onset Date Resolved Date Mixed hyperlipidemia ICD-9: 272.4 ICD-10: E78.2 Active 06/09/2015 Unknown Hypothyroidism, unsp ecified ICD-9: 244.9 ICD-10: E03.9 Active 05/27/2017 Unknown bankman (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 ICD-9: V58.61 ICD-10: [...] 780.79 ICD-10: R53.83 Active 08/20/2016 Unknown Other halfway (cur rent) drug therapy ICD-9: V58.69 ICD-10: [...] ecified ICD-9: 244.9 ICD-10: E03.9 05/27/2017 Active bankman (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 ICD-9: V58.61 ICD-10: [...] ICD-9: 780.79 ICD-10: R53.83 08/20/2016 Active Other halfway (cur rent) drug therapy ICD-9: V58.69 ICD-10: [...] Fill Instructions Carafate 1 gram tablet RxNorm: 216408 TAKE ONE TABLET BY MOUTH BEFORE MEALS AN D AT BEDTIME 12/12/2018 01/06/2019 Active mupirocin 2 % topica l ointment RxNorm: 209433 1 Application TOP TID 12/08/2018 12/17/2018 Active mupirocin 2 % topica l ointment RxNorm: 976294 1 Application TOP TID 12/08/2018 12/07/2018 Inactive allopurinol 300 mg t ablet RxNorm: 511381 TAKE ONE TABLET BY MO UTH DAILY 11/22/2018 03/21/2019 Ac tive clonazepam 0.5 mg ta blet RxNorm: 486247 1 Tablet(s) PO BID 11/16/2018 04/14/2019 Active Carafate 1 gram tablet RxNorm: 826157 TAKE ONE TABLET BY MOUTH BEFORE MEALS AN D AT BEDTIME 11/15/2018 12/10/2018 Inactive atenolol 100 mg tablet RxNorm: 038944 TAKE ONE TABLET BY MOUTH DAILY 10/24/2018 05/21/2019 Ac tive potassium chloride E R 20 mEq tablet,extended release RxNorm: 914158 2 Tablet(s) PO daily 10/18/2018 02/14/2019 Active potassium chloride E R 20 mEq tablet,extended release RxNorm: 282355 1 Tablet(s) PO daily 10/03/2018 10/17/2018 Inactive Carafate 1 gram tablet RxNorm: 129035 TAKE ONE TABLET BY MOUTH BEFORE MEALS AN D AT BEDTIME 09/26/2018 11/14/2018 Inactive Plavix 75 mg tablet RxNorm: 195327 TAKE ONE TABLET BY MOUTH DAILY 09/02/2018 02/28/2019 Ac tive prednisone 10 mg tablet RxNorm: 660438 Tablet(s) PO 09/02/2018 No Stop Date Active 60,60,50,50,40,40,30,30,20,20,10,10 Synthroid 125 mcg ta blet RxNorm: 063176 1 Tablet(s) PO daily 09/02/2018 08/27/2019 Active potassium chloride E R 20 mEq tablet,extended release RxNorm: 939626 1 Tablet(s) PO daily 09/02/2018 09/01/2018 Inactive potassium chloride E R 20 mEq tablet,extended release RxNorm: 918275 1 Tablet(s) PO daily 09/02/2018 10/02/2018 Inactive Synthroid 125 mcg ta blet RxNorm: 609080 1 Tablet(s) PO daily 09/02/2018 09/01/2018 Inactive Keflex 500 mg capsule RxNorm: 214281 1 Capsule(s) PO TID 09/02/2018 09/08/2018 Inactive Kenalog 40 mg/mL maxine pension for injection RxNorm: 7575482 Milliliter(s) Inj 09/02/2018 09/02/2018 In active Lipitor 40 mg tablet RxNorm: 374985 TAKE ONE TABLET BY MOUTH DAILY 07/29/2018 07/23/2019 Ac tive Coumadin 1 mg tablet RxNorm: 709579 TAKE ONE TABLET BY MOUTH DAILY 07/29/2018 10/26/2018 In active Carafate 1 gram tablet RxNorm: 084673 TAKE ONE TABLET BY MOUTH BEFORE MEALS AN D AT BEDTIME 07/28/2018 09/17/2018 Inactive Coumadin 4 mg tablet RxNorm: 885266 2 Tablet(s) daily 07/11/2018 02/05/2019 Active Generi c For:COUMADIN 4MG 07/22/2017 8:58:26 AM Coumadin 5 mg tablet RxNorm: 258829 Tablet(s) TAKE 1 TABLET BY MOUTH DIRE CTED 07/08/2018 01/03/2019 Ac tive Generic For:COUMADIN 5MG TAB 03/21/2018 9:13:00 AM Coumadin 4 mg tablet RxNorm: 722310 Tablet(s) TAKE 1 TABLET BY MOUTH THREE T IMES PER WEEK (WEDNESDAY, WEDNESDAY AND WEDNESDAY) 07/08/2018 07/10/2018 Inactive Gene andre For:COUMADIN 4MG 07/22/2017 8:58:26 AM Coumadin 1 mg tablet RxNorm: 743501 1 Tablet(s) PO daily 07/08/2018 08/06/2018 Inactive venlafaxine ER 75 mg capsule,extended release 24 hr RxNorm: 324256 Capsule(s) TAKE 1 CAPSULE BY MOUTH ONCE DAILY 06/23/2018 06/17/2019 Active Generic For:*EFFEXOR XR 75MG 06/19/2017 12:23:45 PM sodium bicarbonate 6 50 mg tablet RxNorm: 426192 Tablet(s) TAKE 2 TABL ETS BY MOUTH TWICE DAILY 06/23/2018 12/19/2018 Active 12/20/2017 9:10:59 AM Coumadin 1 mg tablet RxNorm: 458985 1 Tablet(s) PO daily 06/17/2018 07/07/2018 Inactive Coumadin 1 mg tablet RxNorm: 831772 1 Tablet(s) PO daily 06/17/2018 06/16/2018 Inactive clonazepam 0.5 mg ta blet RxNorm: 893719 1 Tablet(s) PO BID 06/08/2018 11/03/2018 Inactive spironolactone 25 mg tablet RxNorm: 595523 TAKE 1 TABLET BY MOUT H EVERY DAY 05/18/2018 05/12/2019 Ac tive Generic For:*ALDACTONE 25MG 05/18/2018 8:57:50 AM Carafate 1 gram tablet RxNorm: 368992 TAKE ONE TABLET BY MOUTH BEFORE MEALS AN D AT BEDTIME 05/18/2018 07/12/2018 Inactive Generic For:CARAFATE 1GM 1 07/18/2017 8:38:28 AM Synthroid 137 mcg ta blet RxNorm: 495835 TAKE 1 TABLET BY MOUT H ONCE DAILY 05/18/2018 08/30/2018 In active Generic For:SYNTHROID 137MCG TAB 2017 8:57:54 AM allopurinol 300 mg t ablet RxNorm: 699265 TAKE 1 TABLET BY MOUT H ONCE DAILY. 04/18/2018 10/14/2018 In active Generic For:ZYLOPRIM 300 MG TABLET 03/22 9:13:47 AM Lasix 20 mg tablet RxNorm: 174927 TAKE ONE TABLET BY MOUTH DAILY 04/18/2018 08/15/2018 In active Generic For:LASIX 20MG 04/18/2018 9:13: 50 AM Carafate 1 gram tablet RxNorm: 938295 TAKE ONE TABLET BY MOUTH BEFORE MEALS AN D AT BEDTIME 04/18/2018 05/17/2018 Inactive Generic For:CARAFATE 1GM 1 9:32:51 AM Coumadin 5 mg tablet RxNorm: 735643 TAKE 1 TABLET BY MOUTH DIRECTED 03/21/2018 07/07/2018 In active Generic For:COUMADIN 5MG TAB 03/21/2018 9:13:00 AM Carafate 1 gram tablet RxNorm: 563378 TAKE ONE TABLET BY MOUTH BEFORE MEALS AN D AT BEDTIME 03/21/2018 04/17/2018 Inactive Generic For:CARAFATE 1GM 1 9:14:24 AM Carafate 1 gram tablet RxNorm: 543541 1 Tablet(s) PO AC & HS 02/17/2018 03/20/2018 Inactive atenolol 100 mg tablet RxNorm: 461257 1 Tablet(s) PO daily 02/04/2018 09/01/2018 Inactive atenolol 50 mg tablet RxNorm: 078423 1 Tablet(s) PO daily 02/03/2018 02/03/2018 Inactive omeprazole 20 mg cap sean,delayed release RxNorm: 693083 1 Capsule(s) BID 01/21/2018 01/15/2019 Ac tive Generic For:PRILOSEC 20MG 07/22/2017 8:5 8:20 AM Carafate 1 gram tablet RxNorm: 282587 1 Tablet(s) PO AC & HS 01/21/2018 02/16/2018 Inactive Carafate 1 gram tablet RxNorm: 963606 1 Tablet(s) PO AC & HS 01/18/2018 01/20/2018 Inactive Carafate 1 gram tablet RxNorm: 795304 1 Tablet(s) PO AC & HS 01/18/2018 02/27/2018 Inactive Carafate 1 gram tablet RxNorm: 892317 1 Tablet(s) PO AC & HS TAKE ONE TABLET B Y MOUTH TWICE DAILY 01/18/2018 05/17/2018 Inactive Generic For:CARAFATE 1GM 0 12/20/2017 9:10:56 AM omeprazole 20 mg cap sean,delayed release RxNorm: 415787 Capsule(s) TAKE 1 CAP SEAN BY MOUTH EVERY DAY 01/17/2018 01/20/2018 Inactive Generic For:PRILOSEC 20MG 0 07/22/2017 8:58:20 AM omeprazole 20 mg cap sean,delayed release RxNorm: 956993 Capsule(s) TAKE 1 CAP SEAN BY MOUTH EVERY DAY 01/14/2018 01/16/2018 Inactive Generic For:PRILOSEC 20MG 07/22/2017 8:58:20 AM clonazepam 0.5 mg ta blet RxNorm: 974729 1 Tablet(s) PO BID 01/07/2018 06/05/2018 Inactive Plavix 75 mg tablet RxNorm: 867750 1 Tablet(s) PO daily 01/07/2018 07/05/2018 Inactive Carafate 1 gram tablet RxNorm: 300271 1 Tablet(s) PO AC & HS 01/04/2018 01/17/2018 Inactive Lasix 20 mg tablet RxNorm: 671023 TAKE ONE TABLET BY MOUTH DAILY 12/20/2017 04/17/2018 In active Generic For:LASIX 20MG 12/20/2017 9:11: 03 AM sodium bicarbonate 6 50 mg tablet RxNorm: 517570 TAKE 2 TABLETS BY JAVON TH TWICE DAILY 12/20/2017 06/17/2018 In active 12/20/2017 9:10:59 AM Carafate 1 gram tablet RxNorm: 740338 TAKE ONE TABLET BY MOUTH TWICE DAILY 12/20/2017 01/17/2018 In active Generic For:CARAFATE 1GM 12/20/2017 9:1 0:56 AM Synthroid 137 mcg ta blet RxNorm: 105583 TAKE 1 TABLET BY MOUT H ONCE DAILY 11/19/2017 05/17/2018 In active Generic For:SYNTHROID 137MCG TAB 2017 8:58:04 AM Detrol LA 4 mg capsu le,extended release RxNorm: 253658 TAKE 1 CAPSULE BY JAVON TH ONCE DAILY 10/20/2017 04/13/2018 Inactive Generic For:DETROL LA 4MG C AP 10/20/2017 9:01:56 AM allopurinol 300 mg t ablet RxNorm: 030227 TAKE 1 TABLET BY MOUT H ONCE DAILY. 10/20/2017 04/17/2018 In active Generic For:ZYLOPRIM 300 MG TABLET 07/2017 9:01:59 AM Coumadin 5 mg tablet RxNorm: 014992 1 Tablet(s) PO UD 10/01/2017 03/20/2018 Inactive cyclobenzaprine 5 mg tablet RxNorm: 912922 1 Tablet(s) PO TID as needed myscle spasm 09/23/2017 10/12/2017 Inactive Lipitor 40 mg tablet RxNorm: 069488 TAKE 1 TABLET BY MOUTH ONCE DAILY 09/20/2017 07/28/2018 In active Generic For:LIPITOR 40MG 09/20/2017 8:5 6:04 AM atenolol 100 mg tablet RxNorm: 661214 1 Tablet(s) PO daily 08/30/2017 02/03/2018 Inactive atenolol 50 mg tablet RxNorm: 327051 1 Tablet(s) PO daily 08/30/2017 08/30/2017 Inactive Lovenox 30 mg/0.3 mL subcutaneous syringe RxNorm: 030980 0.3 Milliliter(s) SQ Q12H 08/24/2017 09/06/2017 In active Lasix 20 mg tablet RxNorm: 768394 TAKE ONE TABLET BY MOUTH DAILY 08/23/2017 12/19/2017 In active Generic For:LASIX 20MG 08/21/2017 9:04: 27 AM Synthroid 137 mcg ta blet RxNorm: 591232 TAKE 1 TABLET BY MOUT H ONCE DAILY 08/23/2017 11/18/2017 In active Generic For:SYNTHROID 137MCG TAB 2017 9:04:30 AM Lovenox 30 mg/0.3 mL subcutaneous syringe RxNorm: 652979 0.3 Milliliter(s) SQ Q12H 08/10/2017 08/23/2017 In active clonazepam 0.5 mg ta blet RxNorm: 743744 1 Tablet(s) PO BID 08/04/2017 12/30/2017 Inactive omeprazole 20 mg cap sean,delayed release RxNorm: 529835 TAKE 1 CAPSULE BY JAVON TH EVERY DAY 07/22/2017 01/13/2018 Inactive Generic For:PRILOSEC 20MG 07/22/2017 8: 58:20 AM Coumadin 4 mg tablet RxNorm: 522339 TAKE 1 TABLET BY MOUTH THREE TIMES PER [place] (WEDNESDAY, WEDNESDAY AND WEDNESDAY) 07/22/2017 10/03/2018 Inactive Generic For:COUMADIN 4MG 07/22/2017 8:58:26 AM Coumadin 4 mg tablet RxNorm: 651931 TAKE 1 TABLET BY MOUTH THREE TIMES PER [place] (WEDNESDAY, WEDNESDAY AND WEDNESDAY) 07/22/2017 02/16/2018 Inactive Generic For:COUMADIN 4MG 07/22/2017 8:58:26 AM sodium bicarbonate 6 50 mg tablet RxNorm: 488736 TAKE 2 TABLETS BY JAVON TH TWICE DAILY 06/22/2017 12/18/2017 In active 06/19/2017 12:23:30 PM venlafaxine ER 75 mg capsule,extended release 24 hr RxNorm: 892734 TAKE 1 CAPSULE BY MOUTH ONCE DAILY 06/22/2017 06/16/2018 Inactive Generic For:*EFFEXOR XR 75M G 06/19/2017 12:23:45 PM Coumadin 5 mg tablet RxNorm: 731437 1 Tablet(s) PO UD 06/01/2017 09/30/2017 Inactive Keflex 500 mg capsule RxNorm: 700556 1 Capsule(s) PO TID 05/27/2017 06/02/2017 Inactive Synthroid 137 mcg ta blet RxNorm: 229686 TAKE 1 TABLET BY MOUT H ONCE DAILY 05/24/2017 08/21/2017 In active Generic For:SYNTHROID 137MCG TAB 2016 8:55:59 AM Carafate 1 gram tablet RxNorm: 115096 TAKE ONE TABLET BY MOUTH TWICE DAILY 05/24/2017 12/19/2017 In active Generic For:CARAFATE 1GM 05/24/2017 8:5 5:54 AM spironolactone 25 mg tablet RxNorm: 818464 1 Tablet(s) PO daily 05/24/2017 05/17/2018 Inactive Detrol LA 4 mg capsu le,extended release RxNorm: 534614 1 Capsule(s) PO daily TAKE 1 CAPSULE BY MOUTH ONCE DAILY 05/10/2017 10/19/2017 Inactive Generic For:DETROL LA 4MG CAP 02/19/2017 2:36:00 PM Lasix 20 mg tablet RxNorm: 041903 TAKE ONE TABLET BY MOUTH DAILY 04/23/2017 08/20/2017 In active Generic For:LASIX 20MG 04/23/2017 9:04: 01 AM Coumadin 4 mg tablet RxNorm: 614171 TAKE 1 TABLET BY MOUTH THREE TIMES PER [place] (WEDNESDAY, WEDNESDAY AND WEDNESDAY) 04/23/2017 07/21/2017 Inactive Generic For:COUMADIN 4MG 04/23/2017 9:04:05 AM allopurinol 300 mg t ablet RxNorm: 930415 TAKE 1 TABLET BY MOUT H ONCE DAILY. 04/23/2017 10/19/2017 In active Generic For:ZYLOPRIM 300 MG TABLET 08/2016 9:03:57 AM potassium chloride 2 0 mEq/15 mL oral liquid RxNorm: 630920 Milliliter(s) 30 Milliliter(s) (40mEq) PO daily 03/24/2017 07/21/2017 Inactive Lovenox 30 mg/0.3 mL subcutaneous syringe RxNorm: 839220 0.3 Milliliter(s) SQ Q12H 03/22/2017 03/26/2017 In active Lovenox 30 mg/0.3 mL subcutaneous syringe RxNorm: 591298 0.3 Milliliter(s) SQ Q12H 03/19/2017 03/20/2017 In active Lovenox 30 mg/0.3 mL subcutaneous syringe RxNorm: 711958 0.3 Milliliter(s) SQ Q12H 03/16/2017 03/18/2017 In active clonazepam 0.5 mg ta blet RxNorm: 855713 1 Tablet(s) PO BID 03/02/2017 10/03/2018 Inactive Lovenox 30 mg/0.3 mL subcutaneous syringe RxNorm: 026849 1 injection SQ BID do NOT take the night time dose the day before surgery, or the morning dose the day of surgery 03/01/2017 03/07/2017 Inactive Lovenox 30 mg/0.3 mL subcutaneous syringe RxNorm: 483694 1 injection SQ BID 03/01/2017 02/28/2017 In active Detrol LA 4 mg capsu le,extended release RxNorm: 465979 TAKE 1 CAPSULE BY JAVON TH ONCE DAILY 02/19/2017 05/09/2017 Inactive Generic For:DETROL LA 4MG C AP 02/19/2017 2:36:00 PM hydrocodone 5 mg-humberto taminophen 325 mg tablet RxNorm: 119010 1-2 Tablet(s) PO Q6 P RN 02/04/2017 No Stop Date Active Zetia 10 mg tablet RxNorm: 060096 TAKE 1 TABLET BY MOUTH DAILY 01/25/2017 04/13/2018 Inactive 01/23/2017 9:03:48 AM omeprazole 20 mg cap sean,delayed release RxNorm: 842831 TAKE 1 CAPSULE BY JAVON TH EVERY DAY 01/25/2017 07/21/2017 Inactive Generic For:PRILOSEC 20MG 01/23/2017 9: 03:45 AM Coumadin 4 mg tablet RxNorm: 667098 TAKE 1 TABLET BY MOUTH THREE TIMES PER [place] (WEDNESDAY, WEDNESDAY AND WEDNESDAY) 01/25/2017 04/22/2017 Inactive Generic For:COUMADIN 4MG 01/23/2017 9:03:51 AM sodium bicarbonate 6 50 mg tablet RxNorm: 095885 TAKE 2 TABLETS BY JAVON TH TWICE DAILY 12/24/2016 06/21/2017 In active 12/24/2016 9:09:27 AM Lasix 20 mg tablet RxNorm: 294388 1 Tablet(s) PO daily 12/24/2016 04/22/2017 Inactive Synthroid 137 mcg ta blet RxNorm: 630252 TAKE 1 TABLET BY MOUT H ONCE DAILY 11/24/2016 05/22/2017 In active Generic For:SYNTHROID 137MCG TAB 2016 9:04:37 AM Coumadin 4 mg tablet RxNorm: 545627 TAKE 1 TABLET BY MOUTH THREE TIMES PER [place] (WEDNESDAY, WEDNESDAY AND WEDNESDAY) 11/24/2016 01/22/2017 Inactive Generic For:COUMADIN 4MG 11/24/2016 9:04:41 AM hydrocodone 5 mg-humberto taminophen 325 mg tablet RxNorm: 033185 1-2 Tablet(s) PO Q6 P RN 11/17/2016 02/03/2017 In active Carafate 1 gram tablet RxNorm: 664967 TAKE ONE TABLET BY MOUTH TWICE DAILY 10/27/2016 05/23/2017 In active Generic For:CARAFATE 1GM 10/26/2016 8:3 9:42 AM allopurinol 300 mg t ablet RxNorm: 153956 Tablet(s) TAKE 1 TABL ET BY MOUTH ONCE DAILY. 10/26/2016 04/22/2017 Inactive Lipitor 40 mg tablet RxNorm: 537650 1 Tablet(s) PO daily 09/25/2016 09/19/2017 Inactive Coumadin 4 mg tablet RxNorm: 855459 TAKE 1 TABLET BY MOUTH THREE TIMES PER [place] (WEDNESDAY, WEDNESDAY AND WEDNESDAY) 09/25/2016 11/23/2016 Inactive Generic For:COUMADIN 4MG 09/25/2016 8:55:58 AM Zetia 10 mg tablet RxNorm: 761410 1 Tablet(s) PO daily 09/25/2016 01/22/2017 Inactive gave 1 month of samples clonazepam 0.5 mg ta blet RxNorm: 378597 1 Tablet(s) PO BID 09/21/2016 10/03/2018 Inactive Lasix 20 mg tablet RxNorm: 501150 1 Tablet(s) PO daily 09/15/2016 12/23/2016 Inactive potassium chloride 2 0 mEq/15 mL oral liquid RxNorm: 499301 Milliliter(s) 30 Milliliter(s) (40mEq) PO daily 09/15/2016 01/12/2017 Inactive Lasix 20 mg tablet RxNorm: 390232 2 Tablet(s) PO daily 09/10/2016 09/12/2016 Inactive Lasix 20 mg tablet RxNorm: 349882 1 Tablet(s) PO daily 08/28/2016 08/30/2016 Inactive Lasix 20 mg tablet RxNorm: 408066 1 Tablet(s) PO daily 08/20/2016 08/22/2016 Inactive Detrol LA 4 mg capsu le,extended release RxNorm: 532630 TAKE 1 CAPSULE BY JAVON ONCE DAILY 07/27/2016 02/18/2017 Inactive Generic For:DETROL LA 4MG C AP 07/27/2016 9:08:27 AM Coumadin 4 mg tablet RxNorm: 175418 1 Tablet(s) PO 3 x week wed th and sun 07/27/2016 09/24/2016 In active omeprazole 20 mg cap sean,delayed release RxNorm: 692118 Capsule(s) PO TAKE 1 CAPSULE BY MOUTH ONCE DAILY 07/27/2016 01/22/2017 Inactive venlafaxine ER 75 mg capsule,extended release 24 hr RxNorm: 265257 1 Capsule(s) PO daily 06/29/2016 06/21/2017 Inactive sodium bicarbonate 6 50 mg tablet RxNorm: 453312 TAKE 2 TABLETS BY JAVON TWICE DAILY 06/29/2016 12/23/2016 In active 06/27/2016 9:05:39 AM Coumadin 4 mg tablet RxNorm: 642688 1 Tablet(s) PO 3 x week tue thur and sun 06/09/2016 06/08/2016 In active Coumadin 4 mg tablet RxNorm: 662092 1 Tablet(s) PO 3 x week tue thur and sun 06/09/2016 07/26/2016 In active Zetia 10 mg tablet RxNorm: 251925 1 Tablet(s) PO daily 06/09/2016 06/08/2016 Inactive gave 1 month of samples Zetia 10 mg tablet RxNorm: 961391 1 Tablet(s) PO daily 06/09/2016 09/24/2016 Inactive gave 1 month of samples Effexor 75 mg tablet RxNorm: 556255 1 Tablet(s) PO daily 06/08/2016 06/28/2016 Inactive spironolactone 25 mg tablet RxNorm: 415311 1 Tablet(s) PO daily 06/08/2016 05/23/2017 Inactive Synthroid 137 mcg ta blet RxNorm: 423596 1 Tablet(s) PO daily 05/07/2016 11/02/2016 Inactive allopurinol 300 mg t ablet RxNorm: 549144 Tablet(s) TAKE 1 TABL ET BY MOUTH ONCE DAILY. 04/28/2016 10/24/2016 Inactive clonazepam 0.5 mg ta blet RxNorm: 668030 1 Tablet(s) PO BID 04/20/2016 10/03/2018 Inactive Flonase Allergy Reli ef 50 mcg/actuation nasal spray,suspension RxNorm: 0653219 1 [place] NASAL BID 04/02/2016 No Stop Date Active Zithromax Z-Thomas 250 mg tablet RxNorm: 512497 Tablet(s) PO 04/02/2016 08/27/2016 Inactive cetirizine 10 mg tablet RxNorm: 7966829 1 Tablet(s) PO daily 04/02/2016 05/01/2016 Inactive Carafate 1 gram tablet RxNorm: 032409 Tablet(s) TAKE 1 TABLET TWICE A DAY FOR 30 DAYS 03/30/2016 10/25/2016 Inactive Generic For:CARAFATE 1GM 02/08/2015 12:3 6:39 PM Plavix 75 mg tablet RxNorm: 289970 1 Tablet(s) PO daily 03/11/2016 09/06/2016 Inactive sodium bicarbonate 6 50 mg tablet RxNorm: 406860 Tablet(s) 2 Tablet(s) PO BID 02/28/2016 06/26/2016 In active omeprazole 20 mg cap sean,delayed release RxNorm: 315072 Capsule(s) PO TAKE 1 CAPSULE BY MOUTH ONCE DAILY 01/31/2016 07/26/2016 Inactive Fish Oil 1,000 mg ca psule RxNorm: 1 Capsule(s) PO BID 01/14/2016 No Stop Date Active Synthroid 137 mcg ta blet RxNorm: 848341 1 Tablet(s) PO daily 01/14/2016 05/06/2016 Inactive Detrol LA 4 mg capsu le,extended release RxNorm: 929869 TAKE 1 CAPSULE BY JAVON TH ONCE DAILY 12/30/2015 07/26/2016 Inactive Generic For:DETROL LA 4MG C AP 12/30/2015 9:11:01 AM potassium chloride 2 0 mEq/15 mL oral liquid RxNorm: 329355 Milliliter(s) 30 Milliliter(s) (40mEq) PO daily 12/02/2015 03/30/2016 Inactive sodium bicarbonate 6 50 mg tablet RxNorm: 841028 Tablet(s) 2 Tablet(s) PO BID 10/31/2015 02/27/2016 In active Lipitor 40 mg tablet RxNorm: 386935 1 Tablet(s) PO daily 10/09/2015 09/24/2016 Inactive sodium bicarbonate 6 50 mg tablet RxNorm: 985288 2 Tablet(s) PO BID 10/01/2015 10/30/2015 Inactive allopurinol 300 mg t ablet RxNorm: 211030 TAKE 1 TABLET BY MOUT H ONCE DAILY. 10/01/2015 04/27/2016 In active Generic For:ZYLOPRIM 300 MG TABLET 09/19 9:21:15 AM clonazepam 0.5 mg ta blet RxNorm: 442334 1 Tablet(s) PO BID 09/30/2015 04/19/2016 Inactive Coumadin 5 mg tablet RxNorm: 287130 1 Tablet(s) PO daily 09/27/2015 05/31/2017 Inactive Generic For:COUMADIN 5MG TAB N O T I C E PRESCRIPTION PREVIOUSLY AUTHORIZED BY DOCTOR:BOBBY ZULETA Synthroid 125 mcg ta blet RxNorm: 304964 1 Tablet(s) PO daily 09/27/2015 09/26/2015 Inactive Synthroid 125 mcg ta blet RxNorm: 912150 1 Tablet(s) PO daily 09/27/2015 01/13/2016 Inactive Carafate 1 gram tablet RxNorm: 276621 Tablet(s) TAKE 1 TABLET TWICE A DAY FOR 30 DAYS 09/02/2015 03/29/2016 Inactive Generic For:CARAFATE 1GM 02/08/2015 12:3 6:39 PM sodium bicarbonate 6 50 mg tablet RxNorm: 596501 2 Tablet(s) PO BID 09/02/2015 09/30/2015 Inactive Prilosec 20 mg capsu le,delayed release RxNorm: 640728 TAKE 1 CAPSULE BY JAVON TH ONCE DAILY 08/02/2015 01/28/2016 Inactive Generic For:PRILOSEC 20MG 08/02/2015 10:03:09 AM N O T I C E PRESCRIPTION PREVIOUSLY AUTHORIZED BY DOCTOR:BOBBY ZULETA Zyrtec 10 mg capsule RxNorm: 1213459 1 Capsule(s) PO daily 07/15/2015 08/13/2015 Inactive Keflex 500 mg capsule RxNorm: 111265 1 Capsule(s) PO TID 07/15/2015 07/21/2015 Inactive cetirizine 10 mg cap sean RxNorm: 4533989 1 Capsule(s) PO daily 07/15/2015 08/13/2015 Inactive hydrocodone 5 mg-humberto taminophen 325 mg tablet RxNorm: 932749 1-2 Tablet(s) PO Q6 P RN 06/10/2015 11/16/2016 In active sodium bicarbonate 6 50 mg tablet RxNorm: 484002 2 Tablet(s) PO BID 06/03/2015 08/31/2015 Inactive Detrol LA 4 mg capsu le,extended release RxNorm: 595012 TAKE 1 CAPSULE BY JAVON TH ONCE DAILY 06/03/2015 12/29/2015 Inactive Generic For:DETROL LA 4MG C AP N O T I C E PRESCRIPTION PREVIOUSLY AUTHORIZED BY DOCTOR:BOBBY ZULETA atenolol 50 mg tablet RxNorm: 510143 1 Tablet(s) PO daily TAKE 1 TABLET BY MO UTH DAILY 05/07/2015 08/23/2017 Inactive Generic For:TENORMIN 50MG 05/04/2015 9:07:22 AM spironolactone 25 mg tablet RxNorm: 545021 1 Tablet(s) PO daily 05/06/2015 06/07/2016 Inactive venlafaxine ER 75 mg capsule,extended release 24 hr RxNorm: 360471 1 Capsule(s) PO daily 05/04/2015 06/28/2016 Inactive atenolol 50 mg tablet RxNorm: 913996 TAKE 1 TABLET BY MOUTH DAILY 05/04/2015 05/06/2015 Inactive Generic For:TENORMIN 50MG 05/04/2015 9: 07:22 AM Synthroid 150 mcg ta blet RxNorm: 615886 TAKE 1 TABLET BY MOUT H ONCE DAILY. 04/05/2015 09/26/2015 In active Generic For:SYNTHROID 150MCG TAB 2014 4:45:40 PM N O T I C E PRESCRIPTION PREVIOUSLY AUTHORIZED BY DOCTOR:BOBBY ZULETA Effexor 75 mg tablet RxNorm: 232226 1 Tablet(s) PO daily 04/05/2015 07/03/2015 Inactive Coumadin 5 mg tablet RxNorm: 387344 TAKE 1 AND 1/2 TABLETS BY MOUTH ONCE MYRANDA LY 04/04/2015 09/26/2015 In active Generic For:COUMADIN 5MG TAB N O T I C E PRESCRIPTION PREVIOUSLY AUTHORIZED BY DOCTOR:BOBBY ZULETA clonazepam 0.5 mg ta blet RxNorm: 214584 1 Tablet(s) PO BID 03/13/2015 11/05/2015 Inactive sodium bicarbonate 6 50 mg tablet RxNorm: 625462 2 Tablet(s) PO BID 03/08/2015 06/02/2015 Inactive allopurinol 300 mg t ablet RxNorm: 265788 TAKE 1 TABLET BY MOUT H ONCE DAILY. 03/05/2015 09/30/2015 In active N O T I C E PRESCRIPTION PREVIOUSLY A UTHORIZED BY DOCTOR:BOBBY ZULETA Plavix 75 mg tablet RxNorm: 903449 1 Tablet(s) PO daily 02/12/2015 09/09/2015 Inactive clonazepam 0.5 mg ta blet RxNorm: 667347 1 Tablet(s) PO BID 02/11/2015 03/11/2015 Inactive Carafate 1 gram tablet RxNorm: 482952 TAKE 1 TABLET TWICE A DAY FOR 30 DAYS 02/08/2015 02/07/2015 In active Generic For:CARAFATE 1GM 02/08/2015 12:3 6:39 PM Carafate 1 gram tablet RxNorm: 764355 Tablet(s) TAKE 1 TABLET TWICE A DAY FOR 30 DAYS 02/08/2015 09/01/2015 Inactive Generic For:CARAFATE 1GM 02/08/2015 12:3 6:39 PM potassium chloride 2 0 mEq/15 mL oral liquid RxNorm: 140201 30 Milliliter(s) (40m Eq) PO daily 02/05/2015 12/01/2015 Inactive atenolol 50 mg tablet RxNorm: 624386 1 Tablet(s) PO daily 02/04/2015 05/03/2015 Inactive [SAVINGS FOR NON-COVERED DRUGS -- BIN:00 3585, PCN: [email or web address], Group: XXXXX, ID# [id number], Questions: . THIS IS NOT INSURANCE.] potassium chloride 2 0 mEq/15 mL oral liquid RxNorm: 650772 30 Milliliter(s) (40m Eq) PO daily 01/08/2015 02/04/2015 Inactive potassium chloride 2 0 mEq/15 mL oral liquid RxNorm: 585067 30 Milliliter(s) (40m Eq) PO daily 12/07/2014 01/07/2015 Inactive atenolol 50 mg tablet RxNorm: 456599 1 Tablet(s) PO daily 11/09/2014 11/08/2014 Inactive atenolol 50 mg tablet RxNorm: 759180 1 Tablet(s) PO daily 11/09/2014 02/03/2015 Inactive [SAVINGS FOR NON-COVERED DRUGS -- BIN:00 3585, PCN: [email or web address], Group: XXXXX, ID# [id number], Questions: . THIS IS NOT INSURANCE.] Voltaren 1 % topical gel RxNorm: 126075 TOP No St art Date Active verapamil ER (HS) 24 0 mg tablet,extended release 24 hr RxNorm: 142010 1 Tablet(s) PO daily No Start Date Active aspirin 81 mg tablet RxNorm: 147871 1 Tablet(s) PO daily No Start Date Active Zofran 4 mg tablet RxNorm: 354380 1 Tablet(s) PO PRN No Start Date Active B12 1000 mcg RxNorm: 1 Tablet(s) PO daily No Start Date Active magnesium oxide 400 mg capsule RxNorm: 740120 2 Capsule(s) PO BID No Start Date Active Synthroid 150 mcg ta blet RxNorm: 106895 1 Tablet(s) PO daily No Start Date 04/04/2015 Inactive Coumadin 5 mg tablet RxNorm: 405225 1 Tablet(s) PO daily No Start Date 04/03/2015 Inactive cranberry 1,000 mg c apsule RxNorm: 627152 1 Capsule(s) PO daily No Start Date 04/13/2018 Inactive allopurinol 300 mg t ablet RxNorm: 114319 1 Tablet(s) PO daily No Start Date 03/04/2015 Inactive Prilosec 20 mg capsu le,delayed release RxNorm: 415838 1 Capsule(s) PO PRN No Start Date 08/01/2015 Inactive potassium chloride 2 0 mEq/15 mL oral liquid RxNorm: 816931 30 Milliliter(s) (40m Eq) PO daily No Start Date 12/06/2014 Inactive atenolol 50 mg tablet RxNorm: 448429 1 Tablet(s) PO daily No Start Date 08/29/2017 Inactive Lipitor 40 mg tablet RxNorm: 204635 1 Tablet(s) PO daily No Start Date 09/19/2017 Inactive Effexor 75 mg tablet RxNorm: 876043 1 Tablet(s) PO daily No Start Date 04/04/2015 Inactive Carafate 1 gram tablet RxNorm: 501707 1 Tablet(s) PO BID No Start Date 02/07/2015 Inactive clonazepam 0.5 mg ta blet RxNorm: 689038 1 Tablet(s) PO BID No Start Date 02/10/2015 Inactive Plavix 75 mg tablet RxNorm: 106945 1 Tablet(s) PO daily No Start Date 02/11/2015 Inactive sodium bicarbonate 6 50 mg tablet RxNorm: 820718 2 Tablet(s) PO BID No Start Date 09/01/2015 Inactive Lovenox 30 mg/0.3 mL subcutaneous syringe RxNorm: 841140 0.3 Milliliter(s) SQ Q12H No Start Date 03/15/2017 Inactive Fish Oil 1,000 mg ca psule RxNorm: 1 Capsule(s) PO daily No Start Date 01/13/2016 Inactive Detrol LA 4 mg capsu le,extended release RxNorm: 065962 1 Capsule(s) PO daily No Start Date 06/02/2015 Inactive Medication Administered Medication Codes Instruc tions Start Date Status Kenalog 40 mg/mL suspension for injection RxNorm: 2147599 Milliliter 09/02/2018 No longer Active Immunizations Vaccine Codes Date Status SHINGARIX CVX: 121 03/23 completed Assessments Condition Codes Effectiv e Dates Mixed hyperlipidemia ICD-10: E78.2 ICD-9: 272.4 10/05/2018 Other acute sinusitis ICD-10: J01.80 ICD-9: 461.8 09/02/2018 Other allergic rhinitis ICD-10: J30. 89 ICD-9: 477.8 09/02/2018 Hypothyroidism, unspecified ICD-10: E03.9 ICD-9: 244.9 04/14/2018 Essential (primary) hypertension ICD -10: I10 ICD-9: 401.9 04/14/2018 group home (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 ICD-10: Z79.01 [...] fatigue ICD-10: R53.83 ICD-9: 780.79 08/20/2016 Other halfway (current) drug therapy ICD-10: Z79.899 ICD-9: V58.69 [...] Code Item Item Code Result Date Pt Awx8119 PT 21.8 seconds 12/15/2018 Pt Sun1658 INR 2.0 12/15/2018 Pt Oho1644 Low Intensity - 1.5-2.0 12/15/2018 Pt Yqz6433 Mod intensity - 2.0-3.0 12/15/2018 Pt Onb7433 Hi intensity - 3.0-4.0 12/15/2018 Pt Wgh4069 PT 24.4 seconds 12/09/2018 Pt Vaw2160 INR 2.2 12/09/2018 Pt Sqp5219 Low Intensity - 1.5-2.0 12/09/2018 Pt Vpf4505 Mod intensity - 2.0-3.0 12/09/2018 Pt Cfa9154 Hi intensity - 3.0-4.0 12/09/2018 Pt Igm5599 PT 35.0 seconds 12/01/2018 Pt Bkh0791 INR 3.5 12/01/2018 Pt Rqs5279 Low Intensity - 1.5-2.0 12/01/2018 Pt Nbk7445 Mod intensity - 2.0-3.0 12/01/2018 Pt Mxk9608 Hi intensity - 3.0-4.0 12/01/2018 Pt Dvl4247 PT 26.3 seconds 10/13/2018 Pt Dwe0784 INR 2.5 10/13/2018 Pt Zkd4041 Low Intensity - 1.5-2.0 10/13/2018 Pt Lcd0427 Mod intensity - 2.0-3.0 10/13/2018 Pt Blo8027 Hi intensity - 3.0-4.0 10/13/2018 Lipid Ord30 CHOL 180 mg/dL 10/07/2018 Lipid Ord30 HDL 74.0 mg/dl 10/07/2018 Lipid Ord30 TRIG 111 mg/dL 10/07/2018 Lipid Ord30 LDL 84 mg/dL 10/07/2018 Lipid Ord30 C/HDL 2.4 Ratio 10/07/2018 Pt Nes7499 PT 38.1 seconds 10/07/2018 Pt Ibc7663 INR 3.9 10/07/2018 Pt Fqq7010 Low Intensity - 1.5-2.0 10/07/2018 Pt Exj2618 Mod intensity - 2.0-3.0 10/07/2018 Pt Afn1391 Hi intensity - 3.0-4.0 10/07/2018 Tsh Ord6 TSH (3rd IS) 0.43 uIU/mL 09/02/2018 Comp Metabolic Odz428 NA 136 mEq/L 09/02/2018 Comp Metabolic Bmi283 K 4.1 mEq/L 09/02/2018 Comp Metabolic Ult702 CL 103 mEq/L 09/02/2018 Comp Metabolic Zcv867 CO2 20.0 mEq/L 09/02/2018 Comp Metabolic Een879 AN ION GAP 17 09/02/2018 Comp Metabolic Fhc929 GL UCOSE 124 mg/dL 09/02/2018 Comp Metabolic Vik515 Cr eat 1.0 mg/dL 09/02/2018 Comp Metabolic Pxp514 eG FR 57 ml/min/1.73m2 09/02 Comp Metabolic Fiq257 BUN 24 mg/dL 09/02/2018 Comp Metabolic Fwx035 B/ C Ratio 23.8 Ratio 09/02/2018 Comp Metabolic Otd222 CA LCIUM 9.5 mg/dL 09/02/2018 Comp Metabolic Njc848 AL K PHOS 64 U/L 09/02/2018 Comp Metabolic Sro859 T(SGOT) 24 U/L 09/02/2018 Comp Metabolic Rlz358 AL T(SGPT) 23 U/L 09/02/2018 Comp Metabolic Ygl259 BI LI T 0.5 mg/dL 09/02/2018 Comp Metabolic Tvi583 AL BUMIN 4.2 g/dL 09/02/2018 Comp Metabolic Pfi933 TP RO 7.4 g/dL 09/02/2018 Comp Metabolic Jlz425 GL OB 3.2 g/dL 09/02/2018 Comp Metabolic Tmf404 A/ G Ratio 1.3 Ratio 09/02/2018 Comp Metabolic Nnc885 Os mo 277 mOsmo 09/02/2018 Pt Lsf2061 PT 40.6 seconds 09/02/2018 Pt Lhl6897 INR 4.2 09/02/2018 Pt Gyi2188 Low Intensity - 1.5-2.0 09/02/2018 Pt Ygp8836 Mod intensity - 2.0-3.0 09/02/2018 Pt Gdu5990 Hi intensity - 3.0-4.0 09/02/2018 Free T4 Gyv226 FREE T4 1.51 ng/dL 09/02/2018 Magnesium Ord90 Mag 1.8 mg/dL 09/02/2018 Pt Wmk8723 PT 29.2 seconds 08/05/2018 Pt Mfv2855 INR 2.8 08/05/2018 Pt Hjk5649 Low Intensity - 1.5-2.0 08/05/2018 Pt Nfu3404 Mod intensity - 2.0-3.0 08/05/2018 Pt Qem1212 Hi intensity - 3.0-4.0 08/05/2018 Pt Mqk3850 PT 30.2 seconds 07/25/2018 Pt Kpe2970 INR 2.9 07/25/2018 Pt Rzl8489 Low Intensity - 1.5-2.0 07/25/2018 Pt Pob0028 Mod intensity - 2.0-3.0 07/25/2018 Pt Yuy4420 Hi intensity - 3.0-4.0 07/25/2018 Pt Etd9548 PT 25.2 seconds 07/19/2018 Pt Gbh6426 INR 2.3 07/19/2018 Pt Ddr8121 Low Intensity - 1.5-2.0 07/19/2018 Pt Eqj1947 Mod intensity - 2.0-3.0 07/19/2018 Pt Nix0200 Hi intensity - 3.0-4.0 07/19/2018 Pt Pga8569 PT 17.4 seconds 07/15/2018 Pt Ksc5849 INR 1.5 07/15/2018 Pt Gcd5842 Low Intensity - 1.5-2.0 07/15/2018 Pt Wxd0468 Mod intensity - 2.0-3.0 07/15/2018 Pt Tqp8752 Hi intensity - 3.0-4.0 07/15/2018 Pt Gzl2113 PT 17.8 seconds 07/08/2018 Pt Tbi8605 INR 1.5 07/08/2018 Pt Vbh0295 Low Intensity - 1.5-2.0 07/08/2018 Pt Eda1882 Mod intensity - 2.0-3.0 07/08/2018 Pt Ria7015 Hi intensity - 3.0-4.0 07/08/2018 Pt Nor6600 PT 19.2 seconds 07/01/2018 Pt Mgv8349 INR 1.7 07/01/2018 Pt Hdd5986 Low Intensity - 1.5-2.0 07/01/2018 Pt Jlj6205 Mod intensity - 2.0-3.0 07/01/2018 Pt Txu5121 Hi intensity - 3.0-4.0 07/01/2018 Pt Zff4485 PT 17.4 seconds 06/23/2018 Pt Eme4132 INR 1.5 06/23/2018 Pt Bza9069 Low Intensity - 1.5-2.0 06/23/2018 Pt Mcy0830 Mod intensity - 2.0-3.0 06/23/2018 Pt Ivj8320 Hi intensity - 3.0-4.0 06/23/2018 Pt Tpb5779 PT 18.4 seconds 06/17/2018 Pt Fke0074 INR 1.6 06/17/2018 Pt Bbe4950 Low Intensity - 1.5-2.0 06/17/2018 Pt Lhl1991 Mod intensity - 2.0-3.0 06/17/2018 Pt Tdd7809 Hi intensity - 3.0-4.0 06/17/2018 Sed Rate [...] 30.4 pg 06/08/2018 Cbc With Differential Ord2 Mcminn% 9.4 % 06/08/2018 Cbc With Differential Ord2 [...] 1.20 K/ul 06/08/2018 Cbc With Differential Ord2 Mcminn ABS# 0.5 K/ul 06/08/2018 Cbc With Differential Ord2 Eos ABS# 0.1 K/ul 06/08/2018 Cbc With Differential Ord2 Baso ABS# 0.1 K/ul 06/08/2018 C-Reactive Protein Qnt Crqnt CRP 0.1 mg/dl 06/08/2018 Pt Srx2881 PT 17.6 seconds 06/08/2018 Pt Vsq0862 INR 1.5 06/08/2018 Pt Rju1143 Low Intensity - 1.5-2.0 06/08/2018 Pt Ptg9344 Mod intensity - 2.0-3.0 06/08/2018 Pt Kpm8758 Hi intensity - 3.0-4.0 06/08/2018 Pt Acm1679 PT 16.8 seconds 05/10/2018 Pt Cjc7347 INR 1.4 05/10/2018 Pt Glq1997 Low Intensity - 1.5-2.0 05/10/2018 Pt Xlz6762 Mod intensity - 2.0-3.0 05/10/2018 Pt Fef3969 Hi intensity - 3.0-4.0 05/10/2018 Pt Fmq9485 PT 16.7 seconds 05/04/2018 Pt Csu7433 INR 1.4 05/04/2018 Pt Igb1533 Low Intensity - 1.5-2.0 05/04/2018 Pt Gez7312 Mod intensity - 2.0-3.0 05/04/2018 Pt Pae2286 Hi intensity - 3.0-4.0 05/04/2018 Free T4 Wdo822 FREE T4 1.09 ng/dL 04/14/2018 Tsh Ord6 TSH (3rd IS) 2.36 uIU/mL 04/14/2018 Pt Aqp9152 PT 20.3 seconds 04/14/2018 Pt Odt7305 INR 1.8 04/14/2018 Pt Lnp3574 Low Intensity - 1.5-2.0 04/14/2018 Pt Ljc1593 Mod intensity - 2.0-3.0 04/14/2018 Pt Amm3966 Hi intensity - 3.0-4.0 04/14/2018 Lipid Ord30 CHOL 149 mg/dL 04/14/2018 Lipid Ord30 HDL 49.0 mg/dl 04/14/2018 Lipid Ord30 TRIG 161 mg/dL 04/14/2018 Lipid Ord30 LDL 68 mg/dL 04/14/2018 Lipid Ord30 C/HDL 3.0 Ratio 04/14/2018 %Hba1C Cul643 % HbA1c 73670-9 5.9 % 04/14/2018 %Hba1C Omp514 Gluc Ave 123 mg/dL 04/14/2018 Comp Metabolic Dvu154 NA 140 mEq/L 04/14/2018 Comp Metabolic Sws846 K 4.1 mEq/L 04/14/2018 Comp Metabolic Oop293 CL 105 mEq/L 04/14/2018 Comp Metabolic Ifj186 CO2 28.0 mEq/L 04/14/2018 Comp Metabolic Ibs768 AN ION GAP 11 04/14/2018 Comp Metabolic Rxn729 GL UCOSE 112 mg/dL 04/14/2018 Comp Metabolic Zwl988 Cr eat 1.0 mg/dL 04/14/2018 Comp Metabolic Kao557 eG FR 58 ml/min/1.73m2 04/14 Comp Metabolic Ceg485 BUN 20 mg/dL 04/14/2018 Comp Metabolic Dcu292 B/ C Ratio 20.2 Ratio 04/14/2018 Comp Metabolic Wda950 CA LCIUM 10.0 mg/dL 04/14/2018 Comp Metabolic Kkw532 AL K PHOS 51 U/L 04/14/2018 Comp Metabolic Aje181 T(SGOT) 24 U/L 04/14/2018 Comp Metabolic Mjm892 AL T(SGPT) 21 U/L 04/14/2018 Comp Metabolic Gud648 BI LI T 0.8 mg/dL 04/14/2018 Comp Metabolic Ind871 AL BUMIN 4.2 g/dL 04/14/2018 Comp Metabolic Lct929 TP RO 7.1 g/dL 04/14/2018 Comp Metabolic Sfi179 GL OB 2.9 g/dL 04/14/2018 Comp Metabolic Mmm403 A/ G Ratio 1.5 Ratio 04/14/2018 Comp Metabolic Hof345 Os mo 283 mOsmo 04/14/2018 Cbc With [...] 30.7 pg 04/14/2018 Cbc With Differential Ord2 Mcminn% 10.6 % 04/14/2018 Cbc With Differential Ord2 [...] 1.18 K/ul 04/14/2018 Cbc With Differential Ord2 Mcminn ABS# 0.5 K/ul 04/14/2018 Cbc With Differential Ord2 Eos ABS# 0.2 K/ul 04/14/2018 Cbc With Differential Ord2 Baso ABS# 0.1 K/ul 04/14/2018 Pt Pze6235 PT 29.3 seconds 02/11/2018 Pt Qeq1879 INR 2.8 02/11/2018 Pt Ntm9493 Low Intensity - 1.5-2.0 02/11/2018 Pt Por7979 Mod intensity - 2.0-3.0 02/11/2018 Pt Jyn3117 Hi intensity - 3.0-4.0 02/11/2018 Comp Metabolic Syu220 NA 141 mEq/L 01/05/2018 Comp Metabolic Zaz055 K 3.7 mEq/L 01/05/2018 Comp Metabolic Xkm361 CL 102 mEq/L 01/05/2018 Comp Metabolic Jxy351 CO2 29.0 mEq/L 01/05/2018 Comp Metabolic Ghk381 AN ION GAP 14 01/05/2018 Comp Metabolic Xuz210 GL UCOSE 136 mg/dL 01/05/2018 Comp Metabolic Wfw815 Cr eat 1.0 mg/dL 01/05/2018 Comp Metabolic Uej016 eG FR 61 ml/min/1.73m2 01/05 Comp Metabolic Xoe247 BUN 22 mg/dL 01/05/2018 Comp Metabolic Qya289 B/ C Ratio 22.9 Ratio 01/05/2018 Comp Metabolic Ide806 CA LCIUM 9.7 mg/dL 01/05/2018 Comp Metabolic Yig624 AL K PHOS 57 U/L 01/05/2018 Comp Metabolic Oau900 T(SGOT) 21 U/L 01/05/2018 Comp Metabolic Fhj188 AL T(SGPT) 19 U/L 01/05/2018 Comp Metabolic Uqr286 BI LI T 0.9 mg/dL 01/05/2018 Comp Metabolic Rcp053 AL BUMIN 4.1 g/dL 01/05/2018 Comp Metabolic Tgu759 TP RO 7.1 g/dL 01/05/2018 Comp Metabolic Fjj650 GL OB 3.0 g/dL 01/05/2018 Comp Metabolic Roe709 A/ G Ratio 1.4 Ratio 01/05/2018 Comp Metabolic Pnt767 Os mo 287 mOsmo 01/05/2018 Free T4 Aik542 FREE T4 1.05 ng/dL 01/05/2018 %Hba1C Mdm426 % HbA1c 82487-7 6.0 % 01/05/2018 %Hba1C Gwp979 Gluc Ave 126 mg/dL 01/05/2018 Cbc With [...] 30.6 pg 01/05/2018 Cbc With Differential Ord2 Mcminn% 10.5 % 01/05/2018 Cbc With Differential Ord2 [...] 1.27 K/ul 01/05/2018 Cbc With Differential Ord2 Mcminn ABS# 0.5 K/ul 01/05/2018 Cbc With Differential Ord2 Eos ABS# 0.2 K/ul 01/05/2018 Cbc With Differential Ord2 Baso ABS# 0.1 K/ul 01/05/2018 Pt Rlo5705 PT 20.7 seconds 01/05/2018 Pt Nqk4377 INR 1.8 01/05/2018 Pt Nlf9498 Low Intensity - 1.5-2.0 01/05/2018 Pt Hsq1643 Mod intensity - 2.0-3.0 01/05/2018 Pt Gzr9379 Hi intensity - 3.0-4.0 01/05/2018 Tsh Ord6 TSH (3rd IS) 2.34 uIU/mL 01/05/2018 Lipid Ord30 CHOL 156 mg/dL 01/05/2018 Lipid Ord30 HDL 48.0 mg/dl 01/05/2018 Lipid Ord30 TRIG 207 mg/dL 01/05/2018 Lipid Ord30 LDL 67 mg/dL 01/05/2018 Lipid Ord30 C/HDL 3.3 Ratio 01/05/2018 Pt Giy4330 PT 28.3 seconds 11/26/2017 Pt Vxs5656 INR 2.6 11/26/2017 Pt Jpa0919 Low Intensity - 1.5-2.0 11/26/2017 Pt Nls1607 Mod intensity - 2.0-3.0 11/26/2017 Pt Wen9294 Hi intensity - 3.0-4.0 11/26/2017 Pt Qrv2170 PT 36.5 seconds 11/19/2017 Pt Acv9431 INR 3.6 11/19/2017 Pt Ctj7020 Low Intensity - 1.5-2.0 11/19/2017 Pt Dcm0758 Mod intensity - 2.0-3.0 11/19/2017 Pt Okj1028 Hi intensity - 3.0-4.0 11/19/2017 Pt Ltk6579 PT 22.9 seconds 10/15/2017 Pt Vrd0433 INR 2.0 10/15/2017 Pt Jqm8498 Low Intensity - 1.5-2.0 10/15/2017 Pt Tzp4920 Mod intensity - 2.0-3.0 10/15/2017 Pt Rzt7193 Hi intensity - 3.0-4.0 10/15/2017 Pt Llo4753 PT 25.9 seconds 10/01/2017 Pt Mic6961 INR 2.4 10/01/2017 Pt Ypj1743 Low Intensity - 1.5-2.0 10/01/2017 Pt Gyk0625 Mod intensity - 2.0-3.0 10/01/2017 Pt Ihj6801 Hi intensity - 3.0-4.0 10/01/2017 Pt Xbb4771 PT 20.6 seconds 09/24/2017 Pt Mao3312 INR 1.8 09/24/2017 Pt Wqq5583 Low Intensity - 1.5-2.0 09/24/2017 Pt Yas0471 Mod intensity - 2.0-3.0 09/24/2017 Pt Tje9852 Hi intensity - 3.0-4.0 09/24/2017 Pt Kqz5011 PT 21.0 seconds 09/15/2017 Pt Fhp4403 INR 1.8 09/15/2017 Pt Lro1906 Low Intensity - 1.5-2.0 09/15/2017 Pt Nwp9553 Mod intensity - 2.0-3.0 09/15/2017 Pt Kal0205 Hi intensity - 3.0-4.0 09/15/2017 Pt Pcr1637 PT 19.0 seconds 09/03/2017 Pt Tlo6091 INR 1.6 09/03/2017 Pt Sbp5149 Low Intensity - 1.5-2.0 09/03/2017 Pt Inh5183 Mod intensity - 2.0-3.0 09/03/2017 Pt Avx5183 Hi intensity - 3.0-4.0 09/03/2017 Pt Ogl5288 PT 17.6 seconds 08/23/2017 Pt Mgi0680 INR 1.5 08/23/2017 Pt Mvl7787 Low Intensity - 1.5-2.0 08/23/2017 Pt Sqn8327 Mod intensity - 2.0-3.0 08/23/2017 Pt Dfg4527 Hi intensity - 3.0-4.0 08/23/2017 Pt Bbc2848 PT 12.7 seconds 08/20/2017 Pt Hlt0757 INR 1.0 08/20/2017 Pt Yup0997 Low Intensity - 1.5-2.0 08/20/2017 Pt Vdc7515 Mod intensity - 2.0-3.0 08/20/2017 Pt Usr8460 Hi intensity - 3.0-4.0 08/20/2017 Pt Wof6999 PT 12.9 seconds 08/17/2017 Pt Qil7321 INR 1.0 08/17/2017 Pt Ffm1088 Low Intensity - 1.5-2.0 08/17/2017 Pt Scr0136 Mod intensity - 2.0-3.0 08/17/2017 Pt Xej9169 Hi intensity - 3.0-4.0 08/17/2017 Pt Oeo7268 PT 18.5 seconds 08/10/2017 Pt Zrl3349 INR 1.6 08/10/2017 Pt Syp5118 Low Intensity - 1.5-2.0 08/10/2017 Pt Ciq9156 Mod intensity - 2.0-3.0 08/10/2017 Pt Jsq1037 Hi intensity - 3.0-4.0 08/10/2017 Tsh Ord6 [...] 29.3 pg 05/27/2017 Cbc With Differential Ord2 Mcminn% 8.1 % 05/27/2017 Cbc With Differential Ord2 [...] 1.11 K/ul 05/27/2017 Cbc With Differential Ord2 Mcminn ABS# 0.6 K/ul 05/27/2017 Cbc With Differential Ord2 Eos ABS# 0.2 K/ul 05/27/2017 Cbc With Differential Ord2 Baso ABS# 0.1 K/ul 05/27/2017 Pt Sak3065 PT 28.2 seconds 05/27/2017 Pt Qrf5992 INR 2.6 05/27/2017 Pt Bku9142 Low Intensity - 1.5-2.0 05/27/2017 Pt Rgz5584 Mod intensity - 2.0-3.0 05/27/2017 Pt Xcs4318 Hi intensity - 3.0-4.0 05/27/2017 Lipid Ord30 CHOL 167 mg/dL 05/27/2017 Lipid Ord30 HDL 49.0 mg/dl 05/27/2017 Lipid Ord30 TRIG 347 mg/dL 05/27/2017 Lipid Ord30 LDL 49 mg/dL 05/27/2017 Lipid Ord30 C/HDL 3.4 Ratio 05/27/2017 Magnesium Ord90 Mag 1.4 mg/dL 05/27/2017 %Hba1C Kdw804 % HbA1c 46229-0 5.9 % 05/27/2017 %Hba1C Xha308 Gluc Ave 123 mg/dL 05/27/2017 Comp Metabolic Gkt883 NA 138 mEq/L 05/27/2017 Comp Metabolic Mvg322 K 4.1 mEq/L 05/27/2017 Comp Metabolic Hav106 CL 101 mEq/L 05/27/2017 Comp Metabolic Hvp014 CO2 31.0 mEq/L 05/27/2017 Comp Metabolic Gsk920 AN ION GAP 10 05/27/2017 Comp Metabolic Rht048 GL UCOSE 117 mg/dL 05/27/2017 Comp Metabolic Gcn632 Cr eat 0.9 mg/dL 05/27/2017 Comp Metabolic Swv233 eG FR 62 ml/min/1.73m2 05/27 Comp Metabolic Bjq724 BUN 25 mg/dL 05/27/2017 Comp Metabolic Mop524 B/ C Ratio 26.6 Ratio 05/27/2017 Comp Metabolic Kei576 CA LCIUM 9.5 mg/dL 05/27/2017 Comp Metabolic Zym432 AL K PHOS 73 U/L 05/27/2017 Comp Metabolic Bmt487 T(SGOT) 18 U/L 05/27/2017 Comp Metabolic Ivn334 AL T(SGPT) 12 U/L 05/27/2017 Comp Metabolic Roo722 BI LI T 0.5 mg/dL 05/27/2017 Comp Metabolic Xvm211 AL BUMIN 4.1 g/dL 05/27/2017 Comp Metabolic Qpt859 TP RO 7.1 g/dL 05/27/2017 Comp Metabolic Bph371 GL OB 3.0 g/dL 05/27/2017 Comp Metabolic Jyd104 A/ G Ratio 1.3 Ratio 05/27/2017 Comp Metabolic Dlp436 Os mo 281 mOsmo 05/27/2017 Free T4 Ebi902 FREE T4 0.91 ng/dL 05/27/2017 Pt Nys3153 PT 29.2 seconds 04/16/2017 Pt Kpo2365 INR 2.7 04/16/2017 Pt Ocl5725 Low Intensity - 1.5-2.0 04/16/2017 Pt Mmu2419 Mod intensity - 2.0-3.0 04/16/2017 Pt Uqs9334 Hi intensity - 3.0-4.0 04/16/2017 Pt Fen6138 PT 30.7 seconds 03/31/2017 Pt Ssj8047 INR 2.9 03/31/2017 Pt Rah4380 Low Intensity - 1.5-2.0 03/31/2017 Pt Cla3410 Mod intensity - 2.0-3.0 03/31/2017 Pt Uec4007 Hi intensity - 3.0-4.0 03/31/2017 Pt Vbh1445 PT 21.3 seconds 03/26/2017 Pt Fru8428 INR 1.9 03/26/2017 Pt Vgr0322 Low Intensity - 1.5-2.0 03/26/2017 Pt Mlc3835 Mod intensity - 2.0-3.0 03/26/2017 Pt Jro9357 Hi intensity - 3.0-4.0 03/26/2017 Pt Tkc7702 PT 19.8 seconds 03/22/2017 Pt Pch4967 INR 1.7 03/22/2017 Pt Mvq2054 Low Intensity - 1.5-2.0 03/22/2017 Pt Sew6148 Mod intensity - 2.0-3.0 03/22/2017 Pt Pum5640 Hi intensity - 3.0-4.0 03/22/2017 Pt Wem5897 PT 15.6 seconds 03/19/2017 Pt Gxb4476 INR 1.3 03/19/2017 Pt Lqx3890 Low Intensity - 1.5-2.0 03/19/2017 Pt Aza1942 Mod intensity - 2.0-3.0 03/19/2017 Pt Xoz3330 Hi intensity - 3.0-4.0 03/19/2017 Pt Dmp8678 PT 13.7 seconds 03/15/2017 Pt Nsy0364 INR 1.1 03/15/2017 Pt Ciy6729 Low Intensity - 1.5-2.0 03/15/2017 Pt Rbb0997 Mod intensity - 2.0-3.0 03/15/2017 Pt Jlq4953 Hi intensity - 3.0-4.0 03/15/2017 Pt Pcc3172 PT 25.8 seconds 01/28/2017 Pt Txz1267 INR 2.4 01/28/2017 Pt Cdu0135 Low Intensity - 1.5-2.0 01/28/2017 Pt Dlb8090 Mod intensity - 2.0-3.0 01/28/2017 Pt Sao1262 Hi intensity - 3.0-4.0 01/28/2017 %Hba1C Adb487 % HbA1c 84408-9 6.4 % 10/23/2016 %Hba1C Adp122 Gluc Ave 137 mg/dL 10/23/2016 Comp Metabolic Ish399 NA 138 mEq/L 10/23/2016 Comp Metabolic Ooe885 K 3.4 mEq/L 10/23/2016 Comp Metabolic Ktm462 CL 100 mEq/L 10/23/2016 Comp Metabolic Nvj423 CO2 30.0 mEq/L 10/23/2016 Comp Metabolic Jvb867 AN ION GAP 11 10/23/2016 Comp Metabolic Zwh673 GL UCOSE 139 mg/dL 10/23/2016 Comp Metabolic Eyr518 Cr eat 0.9 mg/dL 10/23/2016 Comp Metabolic Wzf435 eG FR 62 ml/min/1.73m2 10/23 Comp Metabolic Vrr692 BUN 22 mg/dL 10/23/2016 Comp Metabolic Uld614 B/ C Ratio 23.4 Ratio 10/23/2016 Comp Metabolic Rwo025 CA LCIUM 8.7 mg/dL 10/23/2016 Comp Metabolic Kcx462 AL K PHOS 66 U/L 10/23/2016 Comp Metabolic Csg425 T(SGOT) 20 U/L 10/23/2016 Comp Metabolic Onj416 AL T(SGPT) 10 U/L 10/23/2016 Comp Metabolic Zyw528 BI LI T 0.5 mg/dL 10/23/2016 Comp Metabolic Geq046 AL BUMIN 3.5 g/dL 10/23/2016 Comp Metabolic Bgw405 TP RO 6.3 g/dL 10/23/2016 Comp Metabolic Xtk077 GL OB 2.8 g/dL 10/23/2016 Comp Metabolic Jpz047 A/ G Ratio 1.3 Ratio 10/23/2016 Comp Metabolic Tqk966 Os mo 281 mOsmo 10/23/2016 Pt Pia3708 PT 26.8 seconds 10/23/2016 Pt Mey1168 INR 2.7 10/23/2016 Pt Ttp5739 Low Intensity - 1.5-2.0 10/23/2016 Pt Wbi9081 Mod intensity - 2.0-3.0 10/23/2016 Pt Nlc4758 Hi intensity - 3.0-4.0 10/23/2016 Pt Pxt7533 PT 28.3 seconds 09/25/2016 Pt Rwv2365 INR 2.8 09/25/2016 Pt Lrb8824 Low Intensity - 1.5-2.0 09/25/2016 Pt Gga1485 Mod intensity - 2.0-3.0 09/25/2016 Pt Khs5592 Hi intensity - 3.0-4.0 09/25/2016 Metabolic Ord15 [...] Metabolic Ord15 CALCIUM 8.8 mg/dL 09/25/2016 Pt Nkh8710 PT 30.6 seconds 09/11/2016 Pt Tyt3822 INR 3.2 09/11/2016 Pt Rhv5162 Low Intensity - 1.5-2.0 09/11/2016 Pt Uug5901 Mod intensity - 2.0-3.0 09/11/2016 Pt Dsv8667 Hi intensity - 3.0-4.0 09/11/2016 Comp Metabolic Jru865 NA 138 mEq/L 09/11/2016 Comp Metabolic Akg229 K 4.4 mEq/L 09/11/2016 Comp Metabolic Umr129 CL 103 mEq/L 09/11/2016 Comp Metabolic Iek040 CO2 31.0 mEq/L 09/11/2016 Comp Metabolic Rif751 AN ION GAP 8 09/11/2016 Comp Metabolic Igq483 GL UCOSE 146 mg/dL 09/11/2016 Comp Metabolic Jcx209 Cr eat 1.0 mg/dL 09/11/2016 Comp Metabolic Mkm036 eG FR 60 ml/min/1.73m2 09/11 Comp Metabolic Tcn662 BUN 16 mg/dL 09/11/2016 Comp Metabolic Txj340 B/ C Ratio 16.5 Ratio 09/11/2016 Comp Metabolic Yeq028 CA LCIUM 8.7 mg/dL 09/11/2016 Comp Metabolic Pna768 AL K PHOS 52 U/L 09/11/2016 Comp Metabolic Via998 T(SGOT) 19 U/L 09/11/2016 Comp Metabolic Rpz623 AL T(SGPT) 11 U/L 09/11/2016 Comp Metabolic Ehh508 BI LI T 0.7 mg/dL 09/11/2016 Comp Metabolic Dlv428 AL BUMIN 3.3 g/dL 09/11/2016 Comp Metabolic Hfs957 TP RO 5.8 g/dL 09/11/2016 Comp Metabolic Vqs770 GL OB 2.5 g/dL 09/11/2016 Comp Metabolic Hvk403 A/ G Ratio 1.3 Ratio 09/11/2016 Comp Metabolic Kho905 Os mo 280 mOsmo 09/11/2016 C-Reactive Protein Qnt Crqnt CRP 0.1 mg/dl 08/21/2016 Comp Metabolic Aqj957 NA 139 mEq/L 08/21/2016 Comp Metabolic Xub936 K 4.1 mEq/L 08/21/2016 Comp Metabolic Qke251 CL 102 mEq/L 08/21/2016 Comp Metabolic Tty545 CO2 30.0 mEq/L 08/21/2016 Comp Metabolic Ozl108 AN ION GAP 11 08/21/2016 Comp Metabolic Vxw198 GL UCOSE 148 mg/dL 08/21/2016 Comp Metabolic Bvx133 Cr eat 1.0 mg/dL 08/21/2016 Comp Metabolic Wae582 eG FR 55 ml/min/1.73m2 08/21 Comp Metabolic Hsw349 BUN 21 mg/dL 08/21/2016 Comp Metabolic Cnr835 B/ C Ratio 20.2 Ratio 08/21/2016 Comp Metabolic Lqz521 CA LCIUM 9.4 mg/dL 08/21/2016 Comp Metabolic Xvh485 AL K PHOS 63 U/L 08/21/2016 Comp Metabolic Dpu765 T(SGOT) 23 U/L 08/21/2016 Comp Metabolic Ybr153 AL T(SGPT) 16 U/L 08/21/2016 Comp Metabolic Kqw787 BI LI T 0.6 mg/dL 08/21/2016 Comp Metabolic Luk072 AL BUMIN 3.9 g/dL 08/21/2016 Comp Metabolic Kdo449 TP RO 6.8 g/dL 08/21/2016 Comp Metabolic Wqz564 GL OB 2.9 g/dL 08/21/2016 Comp Metabolic Cmn382 A/ G Ratio 1.4 Ratio 08/21/2016 Comp Metabolic Ltr083 Os mo 283 mOsmo 08/21/2016 Sed Rate Ord21 ESR 16 mm/hr 08/21/2016 Pt Kig9499 PT 27.2 seconds 08/21/2016 Pt Ulr7110 INR 2.7 08/21/2016 Pt Tug0772 Low Intensity - 1.5-2.0 08/21/2016 Pt Bkb7891 Mod intensity - 2.0-3.0 08/21/2016 Pt Xsj1219 Hi intensity - 3.0-4.0 08/21/2016 Magnesium Ord90 Mag 1.9 mg/dL 08/21/2016 Pt Rgk6841 PT 25.9 seconds 06/17/2016 Pt Cyo5546 INR 2.5 06/17/2016 Pt Jus0751 Low Intensity - 1.5-2.0 06/17/2016 Pt Vqo6115 Mod intensity - 2.0-3.0 06/17/2016 Pt Zqc8289 Hi intensity - 3.0-4.0 06/17/2016 Tsh Ord6 hTSH II 2.13 uIU/mL 06/08/2016 Free T4 Dnk196 FREE T4 0.79 ng/dL 06/08/2016 Cbc With [...] 26.8 pg 06/08/2016 Cbc With Differential Ord2 Mcminn% 12.0 % 06/08/2016 Cbc With Differential Ord2 [...] 1.40 K/ul 06/08/2016 Cbc With Differential Ord2 Mcminn ABS# 0.7 K/ul 06/08/2016 Cbc With Differential Ord2 Eos ABS# 0.3 K/ul 06/08/2016 Cbc With Differential Ord2 Baso ABS# 0.1 K/ul 06/08/2016 %Hba1C Kua625 % HbA1c 89397-9 6.2 % 06/08/2016 %Hba1C Sfb334 Gluc Ave 131 mg/dL 06/08/2016 Comp Metabolic Klb571 NA 138 mEq/L 06/08/2016 Comp Metabolic Sfc637 K 3.9 mEq/L 06/08/2016 Comp Metabolic Odq469 CL 105 mEq/L 06/08/2016 Comp Metabolic Pvi209 CO2 27.0 mEq/L 06/08/2016 Comp Metabolic Ggv800 AN ION GAP 10 06/08/2016 Comp Metabolic Ucg646 GL UCOSE 127 mg/dL 06/08/2016 Comp Metabolic Twb907 Cr eat 1.0 mg/dL 06/08/2016 Comp Metabolic Wko921 eG FR 59 ml/min/1.73m2 06/08 Comp Metabolic Ygb310 BUN 19 mg/dL 06/08/2016 Comp Metabolic Uru947 B/ C Ratio 19.4 Ratio 06/08/2016 Comp Metabolic Jeh371 CA LCIUM 9.2 mg/dL 06/08/2016 Comp Metabolic Lla647 AL K PHOS 77 U/L 06/08/2016 Comp Metabolic Hsk908 T(SGOT) 19 U/L 06/08/2016 Comp Metabolic Qoa892 AL T(SGPT) 13 U/L 06/08/2016 Comp Metabolic Kio677 BI LI T 0.5 mg/dL 06/08/2016 Comp Metabolic Ome822 AL BUMIN 3.8 g/dL 06/08/2016 Comp Metabolic Rxb214 TP RO 6.6 g/dL 06/08/2016 Comp Metabolic Qqt421 GL OB 2.8 g/dL 06/08/2016 Comp Metabolic Bsk271 A/ G Ratio 1.4 Ratio 06/08/2016 Comp Metabolic Wgg022 Os mo 280 mOsmo 06/08/2016 Pt Sgs8848 PT 36.1 seconds 06/08/2016 Pt Xpg8521 INR 3.9 06/08/2016 Pt Twh0601 Low Intensity - 1.5-2.0 06/08/2016 Pt Zuy1082 Mod intensity - 2.0-3.0 06/08/2016 Pt Wlo0595 Hi intensity - 3.0-4.0 06/08/2016 Lipid Ord30 CHOL 149 mg/dL 06/08/2016 Lipid Ord30 HDL 46.0 mg/dl 06/08/2016 Lipid Ord30 TRIG 279 mg/dL 06/08/2016 Lipid Ord30 LDL 47 mg/dL 06/08/2016 Lipid Ord30 C/HDL 3.2 Ratio 06/08/2016 Pt Zlb7188 PT 30.9 seconds 02/12/2016 Pt Cwh5043 INR 3.2 02/12/2016 Pt Zzq2275 Low Intensity - 1.5-2.0 02/12/2016 Pt Wij8632 Mod intensity - 2.0-3.0 02/12/2016 Pt Onx9292 Hi intensity - 3.0-4.0 02/12/2016 Free T4 Mej831 FREE T4 1.24 ng/dL 09/27/2015 %Hba1C Ozp933 % HbA1c 96825-9 6.4 % 09/27/2015 %Hba1C Maw651 Gluc Ave 137 mg/dL 09/27/2015 Tsh Ord6 hTSH II 0.37 uIU/mL 09/27/2015 Pt Acp2626 PT 26.2 seconds 09/27/2015 Pt Qwe1257 INR 2.5 09/27/2015 Pt Nog0415 Low Intensity - 1.5-2.0 09/27/2015 Pt Uum0110 Mod intensity - 2.0-3.0 09/27/2015 Pt Cnd8948 Hi intensity - 3.0-4.0 09/27/2015 Pt Bvv3369 PT 27.6 seconds 2015 Pt Ycj4164 INR 2.7 2015 Pt Onh7464 Low Intensity - 1.5-2.0 2015 Pt Wzw2283 Mod intensity - 2.0-3.0 2015 Pt Pfc5053 Hi intensity - 3.0-4.0 2015 %Hba1C Xoz935 % HbA1c 26697-9 6.1 % 06/11/2015 %Hba1C Dpt204 Gluc Ave 128 mg/dL 06/11/2015 Cbc With [...] Ord2 RDW 15.8 % 06/10/2015 Comp Metabolic Zst232 NA 139 mEq/L 06/10/2015 Comp Metabolic Mue700 K 4.1 mEq/L 06/10/2015 Comp Metabolic Vip165 CL 105 mEq/L 06/10/2015 Comp Metabolic Jtd766 CO2 27.0 mEq/L 06/10/2015 Comp Metabolic Oik593 AN ION GAP 11 06/10/2015 Comp Metabolic Mka385 GL UCOSE 127 mg/dL 06/10/2015 Comp Metabolic Sjg838 Cr eat 1.0 mg/dL 06/10/2015 Comp Metabolic Gwq542 eG FR 59 ml/min/1.73m2 06/10 Comp Metabolic Nuf125 BUN 21 mg/dL 06/10/2015 Comp Metabolic Ozm912 B/ C Ratio 21.2 Ratio 06/10/2015 Comp Metabolic Eez941 CA LCIUM 9.2 mg/dL 06/10/2015 Comp Metabolic Chd538 AL K PHOS 87 U/L 06/10/2015 Comp Metabolic Bxh767 T(SGOT) 20 U/L 06/10/2015 Comp Metabolic Boo214 AL T(SGPT) 17 U/L 06/10/2015 Comp Metabolic Hkx999 BI LI T 0.4 mg/dL 06/10/2015 Comp Metabolic Hhx164 AL BUMIN 4.1 g/dL 06/10/2015 Comp Metabolic Goy698 TP RO 7.2 g/dL 06/10/2015 Comp Metabolic Eco451 GL OB 3.1 g/dL 06/10/2015 Comp Metabolic Prp163 A/ G Ratio 1.3 Ratio 06/10/2015 Comp Metabolic Lay827 Os mo 282 mOsmo 06/10/2015 Tsh Ord6 hTSH II 0.86 uIU/mL 06/10/2015 Lipid Ord30 CHOL 161 mg/dL 06/10/2015 Lipid Ord30 HDL 49.0 mg/dl 06/10/2015 Lipid Ord30 TRIG 208 mg/dL 06/10/2015 Lipid Ord30 LDL 70 mg/dL 06/10/2015 Lipid Ord30 C/HDL 3.3 Ratio 06/10/2015 Pt Abx2650 PT 25.0 seconds 04/09/2015 Pt Cre5553 INR 2.4 04/09/2015 Pt Mdm4915 Low Intensity - 1.5-2.0 04/09/2015 Pt Gjh5187 Mod intensity - 2.0-3.0 04/09/2015 Pt Nxg5232 Hi intensity - 3.0-4.0 04/09/2015 Free T4 Bvg045 FREE T4 1.05 ng/dL 01/22/2015 Pt Bhv2645 PT 27.2 seconds 01/22/2015 Pt Oxl4183 INR 2.6 01/22/2015 Pt Mxm7451 Low Intensity - 1.5-2.0 01/22/2015 Pt Ajn5111 Mod intensity - 2.0-3.0 01/22/2015 Pt Jph3685 Hi intensity - 3.0-4.0 01/22/2015 Cbc With [...] Differential Ord2 RDW 15.2 % 01/22/2015 B12 Hkt981 B12 402.00 pg/ml 01/22/2015 Tsh Ord6 hTSH II 0.65 uIU/mL 01/22/2015 Lipid Ord30 CHOL 166 mg/dL 01/22/2015 Lipid Ord30 HDL 48.0 mg/dl 01/22/2015 Lipid Ord30 TRIG 264 mg/dL 01/22/2015 Lipid Ord30 LDL 65 mg/dL 01/22/2015 Lipid Ord30 C/HDL 3.5 Ratio 01/22/2015 Comp Metabolic Tid501 NA 138 mEq/L 01/22/2015 Comp Metabolic Zzx452 K 4.1 mEq/L 01/22/2015 Comp Metabolic Dcw913 CL 104 mEq/L 01/22/2015 Comp Metabolic Keb186 CO2 29.0 mEq/L 01/22/2015 Comp Metabolic Zja793 AN ION GAP 9 01/22/2015 Comp Metabolic Qie640 GL UCOSE 106 mg/dL 01/22/2015 Comp Metabolic Xah651 Cr eat 0.9 mg/dL 01/22/2015 Comp Metabolic Zyq742 eG FR 63 ml/min/1.73m2 01/22 Comp Metabolic Xvg007 BUN 21 mg/dL 01/22/2015 Comp Metabolic Fok494 B/ C Ratio 22.3 Ratio 01/22/2015 Comp Metabolic Fzo064 CA LCIUM 9.4 mg/dL 01/22/2015 Comp Metabolic Ura210 AL K PHOS 83 U/L 01/22/2015 Comp Metabolic Jjj302 T(SGOT) 23 U/L 01/22/2015 Comp Metabolic Cde300 AL T(SGPT) 18 U/L 01/22/2015 Comp Metabolic Ybb316 BI LI T 0.8 mg/dL 01/22/2015 Comp Metabolic Fiw057 AL BUMIN 4.2 g/dL 01/22/2015 Comp Metabolic Ohv982 TP RO 7.3 g/dL 01/22/2015 Comp Metabolic Uiz881 GL OB 3.1 g/dL 01/22/2015 Comp Metabolic Ryb347 A/ G Ratio 1.4 Ratio 01/22/2015 Comp Metabolic Hkj887 Os mo 279 mOsmo 01/22/2015 Review of [...] 01/22/2015 Gastrointestinal abdominal pain 01/22/2015 Psychiatric anxiety 08/0 09/2014 Gastrointestinal gastroesophageal reflux 01/22/2015 Eyes No [...] Procedure Codes Date THER/PROPH/DIAG INJ SC/IM CPT-4: 74559 09/02/2018 TRIAMCINOLONE ACET I [place] NOS CPT-4: J3301 09/02/2018 URINALYSIS NONAUTO W /O SCOPE CPT-4: 24045 03/05/2017 Vital Signs Date Vital 09/02/2018 Blood Pressure 1: 128/72 Code: 8480-6 BMI: 38.2 Code: 50727-7 Heart Rate 1: 80 bpm Height: 5'1" SpO2: 98% Weight: 202 lbs 04/14/2018 Blood Pressure 1: 116/78 Code: 8480-6 BMI: 41.6 Code: 13735-3 Heart Rate 1: 72 bpm Height: 5'1" SpO2: 98% Weight: 220 lbs 01/18/2018 Blood Pressure 1: 132/74 Code: 8480-6 BMI: 43.5 Code: 90154-2 Heart Rate 1: 70 bpm Height: 5'1" SpO2: 97% Weight: 230 lbs 01/04/2018 Blood Pressure 1: 134/76 Code: 8480-6 BMI: 42.7 Code: 21986-7 Heart Rate 1: 83 bpm Height: 5'1" SpO2: 98% Weight: 226 lbs 09/23/2017 Blood Pressure 1: 124/76 Code: 8480-6 BMI: 42.3 Code: 03021-2 Heart Rate 1: 94 bpm Height: 5'1" SpO2: 96% Weight: 224 lbs 05/27/2017 Blood Pressure 1: 146/78 Code: 8480-6 BMI: 41.4 Code: 73582-4 Heart Rate 1: 85 bpm Height: 5'1" SpO2: 98% Weight: 219 lbs 02/24/2017 Blood Pressure 1: 138/66 Code: 8480-6 BMI: 41.4 Code: 76607-4 Heart Rate 1: 78 bpm Height: 5'1" SpO2: 97% Weight: 219 lbs 11/02/2016 Blood Pressure 1: 144/72 Code: 8480-6 BMI: 46.1 Code: 58844-1 Heart Rate 1: 78 bpm Height: 5'1" SpO2: 98% Weight: 244 lbs 09/30/2016 Blood Pressure 1: 130/76 Code: 8480-6 BMI: 45.0 Code: 53532-0 Heart Rate 1: 86 bpm Height: 5'1" SpO2: 98% Weight: 238 lbs 09/10/2016 Blood Pressure 1: 136/68 Code: 8480-6 BMI: 46.3 Code: 93938-6 Heart Rate 1: 83 bpm Height: 5'1" SpO2: 98% Weight: 245 lbs 08/20/2016 Blood Pressure 1: 142/78 Code: 8480-6 BMI: 45.3 Code: 89821-7 Heart Rate 1: 84 bpm Height: 5'1" SpO2: 99% Weight: 240 lbs 06/08/2016 Blood Pressure 1: 134/76 Code: 8480-6 BMI: 44.2 Code: 82896-0 Heart Rate 1: 86 bpm Height: 5'1" SpO2: 96% Weight: 234 lbs 04/02/2016 Blood Pressure 1: 142/70 Code: 8480-6 BMI: 44.6 Code: 46028-7 Heart Rate 1: 78 bpm Height: 5'1" SpO2: 97% Weight: 236 lbs 01/14/2016 Blood Pressure 1: 146/72 Code: 8480-6 BMI: 44.2 Code: 99030-3 Heart Rate 1: 86 bpm Height: 5'1" SpO2: 96% Weight: 234 lbs 10/02/2015 Blood Pressure 1: 158/76 Code: 8480-6 BMI: 44.2 Code: 59120-6 Heart Rate 1: 67 bpm Height: 5'1" SpO2: 97% Weight: 234 lbs 07/15/2015 Blood Pressure 1: 200/90 Code: 8480-6 Blood Pressure 1: 148/78 Code: 8480-6 BMI: 44.0 Code: 81666-9 Heart Rate 1: 89 bpm Height: 5'1" SpO2: 97% Weight: 233 lbs 06/10/2015 Blood Pressure 1: 140/82 Code: 8480-6 BMI: 44.0 Code: 56452-4 Heart Rate 1: 78 bpm Height: 5'1" [...] wearing crocs and there was a new kazakh on the floor: her foot didn't move [...] Encounters Encounter Performer Loca tion Codes Date 99427 EST. PATIENT, LEVEL IV Diagnosis: Other acute sinusitis[ICD10: J01.80] Diagnosis: Other allergic rhinitis[ICD10: J30.89] [facility] CPT-4: 01260 09/02/2018 [id number] [id number] EST. P ATIENT, LEVEL IV Diagnosis: Essential (primary) hypertension[ICD10: I10] Diagnosis: Hypothyroidism, unspecified[ICD10: E03.9] Diagnosis: Impaired fasting glucose[ICD10: R73.01] Diagnosis: group home (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[ICD10: Z79.01] Edna Almanza MD, [facility] CPT-4: 32414 04/14/2018 ([id number]) 42058 EST. P ATIENT, LEVEL III Diagnosis: Localized edema[ICD10: R60.0] Diagnosis: Gastro-esophageal reflux disease without esophagitis[ICD10: K21.9] Edna Almanza MD, [facility] CPT-4: 55636 01/18/2018 ([id number]) 15576 EST. P ATIENT, LEVEL IV Diagnosis: Gastro-esophageal reflux disease without esophagitis[ICD10: K21.9] Diagnosis: Localized edema[ICD10: R60.0] Diagnosis: Essential (primary) hypertension[ICD10: I10] Diagnosis: Hypothyroidism, unspecified[ICD10: E03.9] Diagnosis: Impaired fasting glucose[ICD10: R73.01] Edna Almanza MD, [facility] CPT-4: 57941 01/04/2018 ([id number]) 21584 EST. P ATIENT, LEVEL IV Diagnosis: Essential (primary) hypertension[ICD10: I10] Diagnosis: bankman (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[ICD10: Z79.01] Diagnosis: Incisional hernia without obstruction or gangrene[ICD10: K43.2] Diagnosis: Right lower quadrant pain[ICD10: R10.31] Sarai Alamnza MD, [facility] CPT-4: 89815 09/23/2017 ([id number]) 43549 EST. P ATIENT, LEVEL IV Diagnosis: Essential (primary) hypertension[ICD10: I10] Diagnosis: Mixed hyperlipidemia[ICD10: E78.2] Diagnosis: Hypothyroidism, unspecified[ICD10: E03.9] Diagnosis: Impaired fasting glucose[ICD10: R73.01] Diagnosis: group home (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[ICD10: Z79.01] Edna Almanza MD, [facility] CPT-4: 71393 05/27/2017 [id number] EST. PATIENT, LEVEL III Diagnosis: Pain in right hip[ICD10: M25.551] Nata Almanza MD, [facility] CPT-4: 12483 02/24/2017 ([id number]) 87135 EST. P ATIENT, LEVEL IV Diagnosis: Essential (primary) hypertension[ICD10: I10] Diagnosis: Localized edema[ICD10: R60.0] Diagnosis: Pain in right hip[ICD10: M25.551] Sarai Almanza MD, [facility] CPT-4: 28186 11/02/2016 ([id number]) 11131 EST. P ATIENT, LEVEL IV Diagnosis: Essential (primary) hypertension[ICD10: I10] Diagnosis: Localized edema[ICD10: R60.0] Sarai Almanza MD, [facility] CPT-4: 62967 09/30/2016 [id number] EST. PATIENT, LEVEL IV Diagnosis: Localized edema[ICD10: R60.0] Diagnosis: Pain in joints of left hand[ICD10: M25.542] Diagnosis: Pain in joints of right hand[ICD10: M25.541] Nata Almanza MD, [facility] CPT-4: 83116 09/10/2016 20379 EST. PATIENT, LEVEL IV Diagnosis: Localized edema[ICD10: R60.0] Diagnosis: Pain in joints of left hand[ICD10: M25.542] Diagnosis: Pain in joints of right hand[ICD10: M25.541] Diagnosis: Other fatigue[ICD10: R53.83] Nata Almanza MD, [facility] CPT-4: 09186 08/20/2016 98579 EST. PATIENT, LEVEL IV Diagnosis: Essential (primary) hypertension[ICD10: I10] Diagnosis: Other halfway (current) drug therapy[ICD10: Z79.899] Diagnosis: Tinnitus, bilateral[ICD10: H93.13] Nata Almanza MD, [facility] CPT-4: 91924 06/08/2016 [id number] EST. PATIENT, LEVEL IV Diagnosis: Other allergic rhinitis[ICD10: J30.89] Diagnosis: Acute laryngopharyngitis[ICD10: J06.0] Nata Almanza MD, [facility] CPT-4: 96126 04/02/2016 [id number] EST. PATIENT, LEVEL IV Diagnosis: Left upper quadrant pain[ICD10: R10.12] Nata Almanza MD, [facility] CPT-4: 85307 01/14/2016 86958 EST. PATIENT, LEVEL IV Diagnosis: Pain in left shoulder[ICD10: M25.512] Diagnosis: Body mass index (BMI) 40.0-44.9, adult[ICD10: Z68.41] [facility] CPT-4: 00094 10/02/2015 94657 EST. PATIENT, LEVEL IV Diagnosis: Pain in left leg[ICD10: M79.605] Diagnosis: Other long term care phlebotomist (current) drug therapy[ICD10: Z79.899] Nata Almanza MD, [facility] CPT-4: 92200 07/15/2015 ([id number]) 07281 EST. 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: Other long term care phlebotomist (current) drug therapy[ICD10: Z79.899] Edna Almanza MD, [facility] CPT-4: 58478 06/10/2015 ([id number]) OFFICE [facility] LEVEL 4 Diagnosis: ESSENTIAL HYPERTENSION[ICD9: 401.9] Diagnosis: HYPOTHYROIDISM[ICD9: 244.9] Diagnosis: ENCNTR LONG-RX USE NEC[ICD9: V58.69] Diagnosis: HYPERLIPIDEMIA[ICD9: 272.4] Diagnosis: Vitamin B12 deficiency[ICD9: 266.2] Diagnosis: Status post gastric surgery[ICD9: V45.89] Diagnosis: Snoring[ICD9: 786.09] [facility] CPT-4: 44683 01/22/2015 Plan of Care Planned Activity Notes [...] allergy spray. 09/02/2018 Appointment: Nata Hsu WPtel: [phone] (15 min) Moderate 09/02/2018 Patient Education: Patient [...] A1C 04/14/2018 Appointment: Edna Douglas WPtel: [phone] [place] [phone] (15 min) Moderate 04/14/2018 Patient Education: Patient [...] to further attempt to reduce peripheral edema. KPQR-zmabvbfz-pwwlezgb prilosec BID and carafate QID -discussed low spice, low acidic diet 01/18/2018 Appointment: Edna Douglas WPtel: [phone] [phone] (15 min) Moderate 01/18/2018 Patient Education: Patient [...] of control. 01/04/2018 Appointment: Edna Douglas WPtel: [address] [place], [place] [phone] (30 min) Complex 01/04/2018 Patient Education: Patient Medication Summary Completed 01/04/2018 Care Plan: SCREENINGMAMMOGRAPHYDIGITAL LOINC : 04539-5 Pending 01/04/2018 Visit Plan: Abdominal hernia - not able to be taken to surgery by local providers and pt has been seen at [facility] and that surgeon felt like Kat would [...] home. 09/23/2017 Appointment: [phone] (15 min) Moderate 09/23/2017 Patient Education: Patient [...] medications. 05/27/2017 [facility]ment: [phone] ([facility] min) Complex 05/27/2017 Patient Education: [...] [place]. 02/24/2017 Appointment: [facility]ata Hsu [phone] [place] (30 min) Complex 02/24/2017 Patient Education: [...] [place]. 11/02/2016 Appointment: [facility]za [phone] [place] (15 min) Moderate 11/02/2016 Patient Education: [...] peripheral edema. 09/30/2016 Appointment: Sarai Almanza WPtel: [facility] (15 min) Moderate 09/30/2016 Patient Education: Patient [...] peripheral edema. 09/10/2016 Appointment: Nata Hsu WPtel: [facility]3 [facility] (30 min) Complex 09/10/2016 Patient Education: Patient [...] edema. 08/20/2016 Appointment: Nata Hsu WPtel: [facility] (30 min) Complex 08/20/2016 Patient Education: Patient Medication Summary Completed 08/20/2016 Referral: Otf Lee [facility] Referral Initiated 07/02/2016 Visit Plan: Chronic Anticoagulant [...] 06/08/2016 Care Plan: Referral Order SNOMED-CT : [id number] Pending 06/08/2016 Visit Plan: URI - Pt [...] allergy spray. 04/02/2016 Appointment: [facility]su [phone] (30 min) Complex 04/02/2016 Patient Education: Patient [...] acute pain 01/14/2016 Appointment: [facility] Douglas [phone] [place] (30 min) Complex 01/14/2016 Patient Education: Patient Medication Summary Completed 01/14/2016 Patient Education: Obesity Completed 01/14/2016 Care Plan: BMI Above normal followup DAVID F-MGMT EDUC & TRAIN 1 PT Pending 10/24/2015 Care Plan: X-RAY EXAM OF SHOULDER LOINC : 65866-0 Pending 10/24/2015 Visit Plan: Left shoulder pain [...] weight check. 10/02/2015 Appointment: Edna Douglas WPtel[phone] (15 min) Moderate 10/02/2015 Patient Education: [...] ses Completed 06/10/2015 Appointment: Sarai Almanza WPtel: [facility] (15 min) Moderate 04/22/2015 Visit Plan: Hypertension [...] have surgical fixation - planning occurring at [facility]. Snoring - Sleep apnea symptoms [...] medications. 01/22/2015 Appointment: Sarai Almanza WPtel: [facility] [place] (S) New Patient 01/22/2015 Patient Education: Patient Medication Summary Completed 01/22/2015 Patient Education: Hypertension Completed 01/22/2015 Referral: Otf Lee [facility] Referral Initiated Instructions Comment . Abdominal hernia - not able to be taken to surgery by local providers and pt has been seen at [facility] and that surgeon felt like Kat would be better served by Dr. Betancur at [facility]. I have recommended a referral to [...] assure normal liver response to medications. . right upper quadra nt pain - [...] to the ER with acute pain . Hypertension - wel l controlled - [...] of control. Elevated blood sugars-check Hgb A1C . Joint complaints, fatigue - will check [...] to further attempt to reduce peripheral edema. LDNV-ydoucpbc-pabjezcu prilosec BID and carafate QID -discussed low [...] have surgical fixation - planning occurring at [facility]. Snoring - Sleep apnea symptoms [...] to assure normal liver response to medications. XRAY RIGHT SHOULDER CUT BACK ON SODIUM/SALTY [...]
--- OUTSIDE RECORDS SUMMARY | 2020-01-16 22:47 | XMS REPORT | CCD ---
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 [place] Medicare Part B [id number] 2017 Unknown Family history Father Diagnosis Age At Onset Hyperlipidemia Unknown Heart Attack Unknown Mother Diagnosis Age At Onset Arthritis Unknown Social History Social History Element Codes Description Effective Dates Marital status Unknown M arried Nathan 09/30/2016 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 Number of children Unknown 3 01/22/[address]: 661712250 Never smoker 01/22/[address]: 404476046 Never drinks alcohol 01/22/2015 Allergies, Adverse Reactions, Alerts Substance Reaction Codes Entered Date Inactivated Date Status * NO KNOWN DRUG ORIN RGIES Unknown 01/22/2015 No Inactive Date Active Past Medical History Illness Codes Condition Status Onset Date Resolved Date Mixed hyperlipidemia ICD-9: 272.4 ICD-10: E78.2 Active 06/09/2015 Unknown Hypothyroidism, unsp ecified ICD-9: 244.9 ICD-10: E03.9 Active 05/27/2017 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 ICD-9: V58.61 ICD-10: [...] 780.79 ICD-10: R53.83 Active 08/20/2016 Unknown Other residential (cur rent) drug therapy ICD-9: V58.69 ICD-10: [...] ecified ICD-9: 244.9 ICD-10: E03.9 05/27/2017 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5 mg ta blet RxNorm: 562524 1 Tablet(s) PO BID 11/16/2018 04/14/2019 Active Carafate 1 gram tablet RxNorm: 367014 TAKE ONE TABLET BY MOUTH BEFORE MEALS AN D AT BEDTIME 11/15/2018 12/10/2018 Inactive atenolol 100 mg tablet RxNorm: 567066 TAKE ONE TABLET BY MOUTH DAILY 10/24/2018 05/21/2019 Ac tive potassium chloride E R 20 mEq tablet,extended release RxNorm: 134285 2 Tablet(s) PO daily 10/18/2018 02/14/2019 Active potassium chloride E R 20 mEq tablet,extended release RxNorm: 201003 1 Tablet(s) PO daily 10/03/2018 10/17/2018 Inactive Carafate 1 gram tablet RxNorm: 068566 TAKE ONE TABLET BY MOUTH BEFORE MEALS AN D AT BEDTIME 09/26/2018 11/14/2018 Inactive Plavix 75 mg tablet RxNorm: 712042 TAKE ONE TABLET BY MOUTH DAILY 09/02/2018 02/28/2019 Ac tive prednisone 10 mg tablet RxNorm: 580411 Tablet(s) PO 09/02/2018 No Stop Date Active 60,60,50,50,40,40,30,30,20,20,10,10 Synthroid 125 mcg ta blet RxNorm: 568809 1 Tablet(s) PO daily 09/02/2018 08/27/2019 Active potassium chloride E R 20 mEq tablet,extended release RxNorm: 280019 1 Tablet(s) PO daily 09/02/2018 09/01/2018 Inactive potassium chloride E R 20 mEq tablet,extended release RxNorm: 431142 1 Tablet(s) PO daily 09/02/2018 10/02/2018 Inactive Synthroid 125 mcg ta blet RxNorm: 677716 1 Tablet(s) PO daily 09/02/2018 09/01/2018 Inactive Keflex 500 mg capsule RxNorm: 596986 1 Capsule(s) PO TID 09/02/2018 09/08/2018 Inactive Kenalog 40 mg/mL maxine pension for injection RxNorm: 8202703 Milliliter(s) Inj 09/02/2018 09/02/2018 In active Lipitor 40 mg tablet RxNorm: 525131 TAKE ONE TABLET BY MOUTH DAILY 07/29/2018 07/23/2019 Ac tive Coumadin 1 mg tablet RxNorm: 244890 TAKE ONE TABLET BY MOUTH DAILY 07/29/2018 10/26/2018 In active Carafate 1 gram tablet RxNorm: 230574 TAKE ONE TABLET BY MOUTH BEFORE MEALS AN D AT BEDTIME 07/28/2018 09/17/2018 Inactive Coumadin 4 mg tablet RxNorm: 226019 2 Tablet(s) daily 07/11/2018 02/05/2019 Active Generi c For:COUMADIN 4MG 07/22/2017 8:58:26 AM Coumadin 5 mg tablet RxNorm: 909016 Tablet(s) TAKE 1 TABLET BY MOUTH DIRE CTED 07/08/2018 01/03/2019 Ac tive Generic For:COUMADIN 5MG TAB 03/21/2018 9:13:00 AM Coumadin 4 mg tablet RxNorm: 901336 Tablet(s) TAKE 1 TABLET BY MOUTH THREE T IMES PER WEEK (WEDNESDAY, WEDNESDAY AND WEDNESDAY) 07/08/2018 07/10/2018 Inactive Gene andre For:COUMADIN 4MG 07/22/2017 8:58:26 AM Coumadin 1 mg tablet RxNorm: 497881 1 Tablet(s) PO daily 07/08/2018 08/06/2018 Inactive venlafaxine ER 75 mg capsule,extended release 24 hr RxNorm: 399858 Capsule(s) TAKE 1 CAPSULE BY MOUTH ONCE DAILY 06/23/2018 06/17/2019 Active Generic For:*EFFEXOR XR 75MG 06/19/2017 12:23:45 PM sodium bicarbonate 6 50 mg tablet RxNorm: 448964 Tablet(s) TAKE 2 TABL ETS BY MOUTH TWICE DAILY 06/23/2018 12/19/2018 Active 12/20/2017 9:10:59 AM Coumadin 1 mg tablet RxNorm: 678375 1 Tablet(s) PO daily 06/17/2018 07/07/2018 Inactive Coumadin 1 mg tablet RxNorm: 676709 1 Tablet(s) PO daily 06/17/2018 06/16/2018 Inactive clonazepam 0.5 mg ta blet RxNorm: 235864 1 Tablet(s) PO BID 06/08/2018 11/03/2018 Inactive spironolactone 25 mg tablet RxNorm: 000782 TAKE 1 TABLET BY MOUT H EVERY DAY 05/18/2018 05/12/2019 Ac tive Generic For:*ALDACTONE 25MG 05/18/2018 8:57:50 AM Carafate 1 gram tablet RxNorm: 446097 TAKE ONE TABLET BY MOUTH BEFORE MEALS AN D AT BEDTIME 05/18/2018 07/12/2018 Inactive Generic For:CARAFATE 1GM 1 07/18/2017 8:38:28 AM Synthroid 137 mcg ta blet RxNorm: 511567 TAKE 1 TABLET BY MOUT H ONCE DAILY 05/18/2018 08/30/2018 In active Generic For:SYNTHROID 137MCG TAB 2017 8:57:54 AM allopurinol 300 mg t ablet RxNorm: 522433 TAKE 1 TABLET BY MOUT H ONCE DAILY. 04/18/2018 10/14/2018 In active Generic For:ZYLOPRIM 300 MG TABLET 03/22 9:13:47 AM Lasix 20 mg tablet RxNorm: 080028 TAKE ONE TABLET BY MOUTH DAILY 04/18/2018 08/15/2018 In active Generic For:LASIX 20MG 04/18/2018 9:13: 50 AM Carafate 1 gram tablet RxNorm: 946635 TAKE ONE TABLET BY MOUTH BEFORE MEALS AN D AT BEDTIME 04/18/2018 05/17/2018 Inactive Generic For:CARAFATE 1GM 1 9:32:51 AM Coumadin 5 mg tablet RxNorm: 546155 TAKE 1 TABLET BY MOUTH DIRECTED 03/21/2018 07/07/2018 In active Generic For:COUMADIN 5MG TAB 03/21/2018 9:13:00 AM Carafate 1 gram tablet RxNorm: 594998 TAKE ONE TABLET BY MOUTH BEFORE MEALS AN D AT BEDTIME 03/21/2018 04/17/2018 Inactive Generic For:CARAFATE 1GM 1 9:14:24 AM Carafate 1 gram tablet RxNorm: 212209 1 Tablet(s) PO AC & HS 02/17/2018 03/20/2018 Inactive atenolol 100 mg tablet RxNorm: 723904 1 Tablet(s) PO daily 02/04/2018 09/01/2018 Inactive atenolol 50 mg tablet RxNorm: 052658 1 Tablet(s) PO daily 02/03/2018 02/03/2018 Inactive omeprazole 20 mg cap sean,delayed release RxNorm: 963763 1 Capsule(s) BID 01/21/2018 01/15/2019 Ac tive Generic For:PRILOSEC 20MG 07/22/2017 8:5 8:20 AM Carafate 1 gram tablet RxNorm: 115003 1 Tablet(s) PO AC & HS 01/21/2018 02/16/2018 Inactive Carafate 1 gram tablet RxNorm: 405045 1 Tablet(s) PO AC & HS 01/18/2018 01/20/2018 Inactive Carafate 1 gram tablet RxNorm: 682703 1 Tablet(s) PO AC & HS 01/18/2018 02/27/2018 Inactive Carafate 1 gram tablet RxNorm: 802811 1 Tablet(s) PO AC & HS TAKE ONE TABLET B Y MOUTH TWICE DAILY 01/18/2018 05/17/2018 Inactive Generic For:CARAFATE 1GM 0 12/20/2017 9:10:56 AM omeprazole 20 mg cap sean,delayed release RxNorm: 987369 Capsule(s) TAKE 1 CAP SEAN BY MOUTH EVERY DAY 01/17/2018 01/20/2018 Inactive Generic For:PRILOSEC 20MG 0 07/22/2017 8:58:20 AM omeprazole 20 mg cap sean,delayed release RxNorm: 132431 Capsule(s) TAKE 1 CAP SEAN BY MOUTH EVERY DAY 01/14/2018 01/16/2018 Inactive Generic For:PRILOSEC 20MG 07/22/2017 8:58:20 AM clonazepam 0.5 mg ta blet RxNorm: 528324 1 Tablet(s) PO BID 01/07/2018 06/05/2018 Inactive Plavix 75 mg tablet RxNorm: 018869 1 Tablet(s) PO daily 01/07/2018 07/05/2018 Inactive Carafate 1 gram tablet RxNorm: 837094 1 Tablet(s) PO AC & HS 01/04/2018 01/17/2018 Inactive Lasix 20 mg tablet RxNorm: 985791 TAKE ONE TABLET BY MOUTH DAILY 12/20/2017 04/17/2018 In active Generic For:LASIX 20MG 12/20/2017 9:11: 03 AM sodium bicarbonate 6 50 mg tablet RxNorm: 311374 TAKE 2 TABLETS BY JAVON TH TWICE DAILY 12/20/2017 06/17/2018 In active 12/20/2017 9:10:59 AM Carafate 1 gram tablet RxNorm: 131686 TAKE ONE TABLET BY MOUTH TWICE DAILY 12/20/2017 01/17/2018 In active Generic For:CARAFATE 1GM 12/20/2017 9:1 0:56 AM Synthroid 137 mcg ta blet RxNorm: 669437 TAKE 1 TABLET BY MOUT H ONCE DAILY 11/19/2017 05/17/2018 In active Generic For:SYNTHROID 137MCG TAB 2017 8:58:04 AM Detrol LA 4 mg capsu le,extended release RxNorm: 285173 TAKE 1 CAPSULE BY JAVON TH ONCE DAILY 10/20/2017 04/13/2018 Inactive Generic For:DETROL LA 4MG C AP 10/20/2017 9:01:56 AM allopurinol 300 mg t ablet RxNorm: 962686 TAKE 1 TABLET BY MOUT H ONCE DAILY. 10/20/2017 04/17/2018 In active Generic For:ZYLOPRIM 300 MG TABLET 07/2017 9:01:59 AM Coumadin 5 mg tablet RxNorm: 438991 1 Tablet(s) PO UD 10/01/2017 03/20/2018 Inactive cyclobenzaprine 5 mg tablet RxNorm: 096226 1 Tablet(s) PO TID as needed myscle spasm 09/23/2017 10/12/2017 Inactive Lipitor 40 mg tablet RxNorm: 824923 TAKE 1 TABLET BY MOUTH ONCE DAILY 09/20/2017 07/28/2018 In active Generic For:LIPITOR 40MG 09/20/2017 8:5 6:04 AM atenolol 100 mg tablet RxNorm: 168147 1 Tablet(s) PO daily 08/30/2017 02/03/2018 Inactive atenolol 50 mg tablet RxNorm: 776813 1 Tablet(s) PO daily 08/30/2017 08/30/2017 Inactive Lovenox 30 mg/0.3 mL subcutaneous syringe RxNorm: 497502 0.3 Milliliter(s) SQ Q12H 08/24/2017 09/06/2017 In active Lasix 20 mg tablet RxNorm: 286769 TAKE ONE TABLET BY MOUTH DAILY 08/23/2017 12/19/2017 In active Generic For:LASIX 20MG 08/21/2017 9:04: 27 AM Synthroid 137 mcg ta blet RxNorm: 982528 TAKE 1 TABLET BY MOUT H ONCE DAILY 08/23/2017 11/18/2017 In active Generic For:SYNTHROID 137MCG TAB 2017 9:04:30 AM Lovenox 30 mg/0.3 mL subcutaneous syringe RxNorm: 672652 0.3 Milliliter(s) SQ Q12H 08/10/2017 08/23/2017 In active clonazepam 0.5 mg ta blet RxNorm: 152926 1 Tablet(s) PO BID 08/04/2017 12/30/2017 Inactive omeprazole 20 mg cap sean,delayed release RxNorm: 525888 TAKE 1 CAPSULE BY JAVON TH EVERY DAY 07/22/2017 01/13/2018 Inactive Generic For:PRILOSEC 20MG 07/22/2017 8: 58:20 AM Coumadin 4 mg tablet RxNorm: 994385 TAKE 1 TABLET BY MOUTH THREE TIMES PER [place] DEE[place]' (WEDNESDAY, WEDNESDAY AND WEDNESDAY) 07/22/2017 10/03/2018 Inactive Generic For:COUMADIN 4MG 07/22/2017 8:58:26 AM Coumadin 4 mg tablet RxNorm: 818552 TAKE 1 TABLET BY MOUTH THREE TIMES PER [place] DEE[place]' (WEDNESDAY, WEDNESDAY AND WEDNESDAY) 07/22/2017 02/16/2018 Inactive Generic For:COUMADIN 4MG 07/22/2017 8:58:26 AM sodium bicarbonate 6 50 mg tablet RxNorm: 293233 TAKE 2 TABLETS BY JAVON TH TWICE DAILY 06/22/2017 12/18/2017 In active 06/19/2017 12:23:30 PM venlafaxine ER 75 mg capsule,extended release 24 hr RxNorm: 909761 TAKE 1 CAPSULE BY MOUTH ONCE DAILY 06/22/2017 06/16/2018 Inactive Generic For:*EFFEXOR XR 75M G 06/19/2017 12:23:45 PM Coumadin 5 mg tablet RxNorm: 955356 1 Tablet(s) PO UD 06/01/2017 09/30/2017 Inactive Keflex 500 mg capsule RxNorm: 569171 1 Capsule(s) PO TID 05/27/2017 06/02/2017 Inactive Synthroid 137 mcg ta blet RxNorm: 120951 TAKE 1 TABLET BY MOUT H ONCE DAILY 05/24/2017 08/21/2017 In active Generic For:SYNTHROID 137MCG TAB 2016 8:55:59 AM Carafate 1 gram tablet RxNorm: 443819 TAKE ONE TABLET BY MOUTH TWICE DAILY 05/24/2017 12/19/2017 In active Generic For:CARAFATE 1GM 05/24/2017 8:5 5:54 AM spironolactone 25 mg tablet RxNorm: 911512 1 Tablet(s) PO daily 05/24/2017 05/17/2018 Inactive Detrol LA 4 mg capsu le,extended release RxNorm: 321339 1 Capsule(s) PO daily TAKE 1 CAPSULE BY MOUTH ONCE DAILY 05/10/2017 10/19/2017 Inactive Generic For:DETROL LA 4MG CAP 02/19/2017 2:36:00 PM Lasix 20 mg tablet RxNorm: 372088 TAKE ONE TABLET BY MOUTH DAILY 04/23/2017 08/20/2017 In active Generic For:LASIX 20MG 04/23/2017 9:04: 01 AM Coumadin 4 mg tablet RxNorm: 591275 TAKE 1 TABLET BY MOUTH THREE TIMES PER [place] DEE[place]' (WEDNESDAY, WEDNESDAY AND WEDNESDAY) 04/23/2017 07/21/2017 Inactive Generic For:COUMADIN 4MG 04/23/2017 9:04:05 AM allopurinol 300 mg t ablet RxNorm: 732507 TAKE 1 TABLET BY MOUT H ONCE DAILY. 04/23/2017 10/19/2017 In active Generic For:ZYLOPRIM 300 MG TABLET 08/2016 9:03:57 AM potassium chloride 2 0 mEq/15 mL oral liquid RxNorm: 404013 Milliliter(s) 30 Milliliter(s) (40mEq) PO daily 03/24/2017 07/21/2017 Inactive Lovenox 30 mg/0.3 mL subcutaneous syringe RxNorm: 273185 0.3 Milliliter(s) SQ Q12H 03/22/2017 03/26/2017 In active Lovenox 30 mg/0.3 mL subcutaneous syringe RxNorm: 257816 0.3 Milliliter(s) SQ Q12H 03/19/2017 03/20/2017 In active Lovenox 30 mg/0.3 mL subcutaneous syringe RxNorm: 658020 0.3 Milliliter(s) SQ Q12H 03/16/2017 03/18/2017 In active clonazepam 0.5 mg ta blet RxNorm: 263180 1 Tablet(s) PO BID 03/02/2017 10/03/2018 Inactive Lovenox 30 mg/0.3 mL subcutaneous syringe RxNorm: 951022 1 injection SQ BID do NOT take the night time dose the day before surgery, or the morning dose the day of surgery 03/01/2017 03/07/2017 Inactive Lovenox 30 mg/0.3 mL subcutaneous syringe RxNorm: 013778 1 injection SQ BID 03/01/2017 02/28/2017 In active Detrol LA 4 mg capsu le,extended release RxNorm: 161134 TAKE 1 CAPSULE BY JAVON TH ONCE DAILY 02/19/2017 05/09/2017 Inactive Generic For:DETROL LA 4MG C AP 02/19/2017 2:36:00 PM hydrocodone 5 mg-humberto taminophen 325 mg tablet RxNorm: 918083 1-2 Tablet(s) PO Q6 P RN 02/04/2017 No Stop Date Active Zetia 10 mg tablet RxNorm: 438884 TAKE 1 TABLET BY MOUTH DAILY 01/25/2017 04/13/2018 Inactive 01/23/2017 9:03:48 AM omeprazole 20 mg cap sean,delayed release RxNorm: 798821 TAKE 1 CAPSULE BY JAVON TH EVERY DAY 01/25/2017 07/21/2017 Inactive Generic For:PRILOSEC 20MG 01/23/2017 9: 03:45 AM Coumadin 4 mg tablet RxNorm: 665280 TAKE 1 TABLET BY MOUTH THREE TIMES PER [place] DEE[place]' (WEDNESDAY, WEDNESDAY AND WEDNESDAY) 01/25/2017 04/22/2017 Inactive Generic For:COUMADIN 4MG 01/23/2017 9:03:51 AM sodium bicarbonate 6 50 mg tablet RxNorm: 200897 TAKE 2 TABLETS BY JAVON TH TWICE DAILY 12/24/2016 06/21/2017 In active 12/24/2016 9:09:27 AM Lasix 20 mg tablet RxNorm: 316930 1 Tablet(s) PO daily 12/24/2016 04/22/2017 Inactive Synthroid 137 mcg ta blet RxNorm: 961600 TAKE 1 TABLET BY MOUT H ONCE DAILY 11/24/2016 05/22/2017 In active Generic For:SYNTHROID 137MCG TAB 2016 9:04:37 AM Coumadin 4 mg tablet RxNorm: 192985 TAKE 1 TABLET BY MOUTH THREE TIMES PER [place] DEE[place]NI' (WEDNESDAY, WEDNESDAY AND WEDNESDAY) 11/24/2016 01/22/2017 Inactive Generic For:COUMADIN 4MG 11/24/2016 9:04:41 AM hydrocodone 5 mg-humberto taminophen 325 mg tablet RxNorm: 741647 1-2 Tablet(s) PO Q6 P RN 11/17/2016 02/03/2017 In active Carafate 1 gram tablet RxNorm: 889449 TAKE ONE TABLET BY MOUTH TWICE DAILY 10/27/2016 05/23/2017 In active Generic For:CARAFATE 1GM 10/26/2016 8:3 9:42 AM allopurinol 300 mg t ablet RxNorm: 713561 Tablet(s) TAKE 1 TABL ET BY MOUTH ONCE DAILY. 10/26/2016 04/22/2017 Inactive Lipitor 40 mg tablet RxNorm: 917527 1 Tablet(s) PO daily 09/25/2016 09/19/2017 Inactive Coumadin 4 mg tablet RxNorm: 258394 TAKE 1 TABLET BY MOUTH THREE TIMES PER [place] DEE[place]NI' (WEDNESDAY, WEDNESDAY AND WEDNESDAY) 09/25/2016 11/23/2016 Inactive Generic For:COUMADIN 4MG 09/25/2016 8:55:58 AM Zetia 10 mg tablet RxNorm: 542619 1 Tablet(s) PO daily 09/25/2016 01/22/2017 Inactive gave 1 month of samples clonazepam 0.5 mg ta blet RxNorm: 032637 1 Tablet(s) PO BID 09/21/2016 10/03/2018 Inactive Lasix 20 mg tablet RxNorm: 404880 1 Tablet(s) PO daily 09/15/2016 12/23/2016 Inactive potassium chloride 2 0 mEq/15 mL oral liquid RxNorm: 626647 Milliliter(s) 30 Milliliter(s) (40mEq) PO daily 09/15/2016 01/12/2017 Inactive Lasix 20 mg tablet RxNorm: 041160 2 Tablet(s) PO daily 09/10/2016 09/12/2016 Inactive Lasix 20 mg tablet RxNorm: 914571 1 Tablet(s) PO daily 08/28/2016 08/30/2016 Inactive Lasix 20 mg tablet RxNorm: 531424 1 Tablet(s) PO daily 08/20/2016 08/22/2016 Inactive Detrol LA 4 mg capsu le,extended release RxNorm: 536793 TAKE 1 CAPSULE BY JAVON ONCE DAILY 07/27/2016 02/18/2017 Inactive Generic For:DETROL LA 4MG C AP 07/27/2016 9:08:27 AM Coumadin 4 mg tablet RxNorm: 099439 1 Tablet(s) PO 3 x week wed th and sun 07/27/2016 09/24/2016 In active omeprazole 20 mg cap sean,delayed release RxNorm: 100234 Capsule(s) PO TAKE 1 CAPSULE BY MOUTH ONCE DAILY 07/27/2016 01/22/2017 Inactive venlafaxine ER 75 mg capsule,extended release 24 hr RxNorm: 109390 1 Capsule(s) PO daily 06/29/2016 06/21/2017 Inactive sodium bicarbonate 6 50 mg tablet RxNorm: 300325 TAKE 2 TABLETS BY JAVON TWICE DAILY 06/29/2016 12/23/2016 In active 06/27/2016 9:05:39 AM Coumadin 4 mg tablet RxNorm: 953869 1 Tablet(s) PO 3 x week tue thur and sun 06/09/2016 06/08/2016 In active Coumadin 4 mg tablet RxNorm: 274131 1 Tablet(s) PO 3 x week tue thur and sun 06/09/2016 07/26/2016 In active Zetia 10 mg tablet RxNorm: 888841 1 Tablet(s) PO daily 06/09/2016 06/08/2016 Inactive gave 1 month of samples Zetia 10 mg tablet RxNorm: 356741 1 Tablet(s) PO daily 06/09/2016 09/24/2016 Inactive gave 1 month of samples Effexor 75 mg tablet RxNorm: 300089 1 Tablet(s) PO daily 06/08/2016 06/28/2016 Inactive spironolactone 25 mg tablet RxNorm: 972805 1 Tablet(s) PO daily 06/08/2016 05/23/2017 Inactive Synthroid 137 mcg ta blet RxNorm: 872609 1 Tablet(s) PO daily 05/07/2016 11/02/2016 Inactive allopurinol 300 mg t ablet RxNorm: 884057 Tablet(s) TAKE 1 TABL ET BY MOUTH ONCE DAILY. 04/28/2016 10/24/2016 Inactive clonazepam 0.5 mg ta blet RxNorm: 928018 1 Tablet(s) PO BID 04/20/2016 10/03/2018 Inactive Flonase Allergy Reli ef 50 mcg/actuation nasal spray,suspension RxNorm: 9349958 1 Royal NASAL BID 04/02/2016 No Stop Date Active Zithromax Z-Thomas 250 mg tablet RxNorm: 873815 Tablet(s) PO 04/02/2016 08/27/2016 Inactive cetirizine 10 mg tablet RxNorm: 6257862 1 Tablet(s) PO daily 04/02/2016 05/01/2016 Inactive Carafate 1 gram tablet RxNorm: 463574 Tablet(s) TAKE 1 TABLET TWICE A DAY FOR 30 DAYS 03/30/2016 10/25/2016 Inactive Generic For:CARAFATE 1GM 02/08/2015 12:3 6:39 PM Plavix 75 mg tablet RxNorm: 110000 1 Tablet(s) PO daily 03/11/2016 09/06/2016 Inactive sodium bicarbonate 6 50 mg tablet RxNorm: 227803 Tablet(s) 2 Tablet(s) PO BID 02/28/2016 06/26/2016 In active omeprazole 20 mg cap sean,delayed release RxNorm: 365690 Capsule(s) PO TAKE 1 CAPSULE BY MOUTH ONCE DAILY 01/31/2016 07/26/2016 Inactive Fish Oil 1,000 mg ca psule RxNorm: 1 Capsule(s) PO BID 01/14/2016 No Stop Date Active Synthroid 137 mcg ta blet RxNorm: 734290 1 Tablet(s) PO daily 01/14/2016 05/06/2016 Inactive Detrol LA 4 mg capsu le,extended release RxNorm: 132555 TAKE 1 CAPSULE BY JAVON TH ONCE DAILY 12/30/2015 07/26/2016 Inactive Generic For:DETROL LA 4MG C AP 12/30/2015 9:11:01 AM potassium chloride 2 0 mEq/15 mL oral liquid RxNorm: 848759 Milliliter(s) 30 Milliliter(s) (40mEq) PO daily 12/02/2015 03/30/2016 Inactive sodium bicarbonate 6 50 mg tablet RxNorm: 482068 Tablet(s) 2 Tablet(s) PO BID 10/31/2015 02/27/2016 In active Lipitor 40 mg tablet RxNorm: 774912 1 Tablet(s) PO daily 10/09/2015 09/24/2016 Inactive sodium bicarbonate 6 50 mg tablet RxNorm: 270396 2 Tablet(s) PO BID 10/01/2015 10/30/2015 Inactive allopurinol 300 mg t ablet RxNorm: 118112 TAKE 1 TABLET BY MOUT H ONCE DAILY. 10/01/2015 04/27/2016 In active Generic For:ZYLOPRIM 300 MG TABLET 09/19 9:21:15 AM clonazepam 0.5 mg ta blet RxNorm: 192520 1 Tablet(s) PO BID 09/30/2015 04/19/2016 Inactive Coumadin 5 mg tablet RxNorm: 613045 1 Tablet(s) PO daily 09/27/2015 05/31/2017 Inactive Generic For:COUMADIN 5MG TAB N O T I C E PRESCRIPTION PREVIOUSLY AUTHORIZED BY DOCTOR:BOBBY ZULETA Synthroid 125 mcg ta blet RxNorm: 666781 1 Tablet(s) PO daily 09/27/2015 09/26/2015 Inactive Synthroid 125 mcg ta blet RxNorm: 072853 1 Tablet(s) PO daily 09/27/2015 01/13/2016 Inactive Carafate 1 gram tablet RxNorm: 106705 Tablet(s) TAKE 1 TABLET TWICE A DAY FOR 30 DAYS 09/02/2015 03/29/2016 Inactive Generic For:CARAFATE 1GM 02/08/2015 12:3 6:39 PM sodium bicarbonate 6 50 mg tablet RxNorm: 414028 2 Tablet(s) PO BID 09/02/2015 09/30/2015 Inactive Prilosec 20 mg capsu le,delayed release RxNorm: 495297 TAKE 1 CAPSULE BY JAVON TH ONCE DAILY 08/02/2015 01/28/2016 Inactive Generic For:PRILOSEC 20MG 08/02/2015 10:03:09 AM N O T I C E PRESCRIPTION PREVIOUSLY AUTHORIZED BY DOCTOR:BOBBY ZULETA Zyrtec 10 mg capsule RxNorm: 9076789 1 Capsule(s) PO daily 07/15/2015 08/13/2015 Inactive Keflex 500 mg capsule RxNorm: 532838 1 Capsule(s) PO TID 07/15/2015 07/21/2015 Inactive cetirizine 10 mg cap sean RxNorm: 5690946 1 Capsule(s) PO daily 07/15/2015 08/13/2015 Inactive hydrocodone 5 mg-humberto taminophen 325 mg tablet RxNorm: 005388 1-2 Tablet(s) PO Q6 P RN 06/10/2015 11/16/2016 In active sodium bicarbonate 6 50 mg tablet RxNorm: 248476 2 Tablet(s) PO BID 06/03/2015 08/31/2015 Inactive Detrol LA 4 mg capsu le,extended release RxNorm: 280902 TAKE 1 CAPSULE BY JAVON TH ONCE DAILY 06/03/2015 12/29/2015 Inactive Generic For:DETROL LA 4MG C AP N O T I C E PRESCRIPTION PREVIOUSLY AUTHORIZED BY DOCTOR:BOBBY ZULETA atenolol 50 mg tablet RxNorm: 839586 1 Tablet(s) PO daily TAKE 1 TABLET BY MO UTH DAILY 05/07/2015 08/23/2017 Inactive Generic For:TENORMIN 50MG 05/04/2015 9:07:22 AM spironolactone 25 mg tablet RxNorm: 087610 1 Tablet(s) PO daily 05/06/2015 06/07/2016 Inactive venlafaxine ER 75 mg capsule,extended release 24 hr RxNorm: 124296 1 Capsule(s) PO daily 05/04/2015 06/28/2016 Inactive atenolol 50 mg tablet RxNorm: 273532 TAKE 1 TABLET BY MOUTH DAILY 05/04/2015 05/06/2015 Inactive Generic For:TENORMIN 50MG 05/04/2015 9: 07:22 AM Synthroid 150 mcg ta blet RxNorm: 877647 TAKE 1 TABLET BY MOUT H ONCE DAILY. 04/05/2015 09/26/2015 In active Generic For:SYNTHROID 150MCG TAB 2014 4:45:40 PM N O T I C E PRESCRIPTION PREVIOUSLY AUTHORIZED BY DOCTOR:BOBBY ZULETA Effexor 75 mg tablet RxNorm: 922213 1 Tablet(s) PO daily 04/05/2015 07/03/2015 Inactive Coumadin 5 mg tablet RxNorm: 452036 TAKE 1 AND 1/2 TABLETS BY MOUTH ONCE MYRANDA LY 04/04/2015 09/26/2015 In active Generic For:COUMADIN 5MG TAB N O T I C E PRESCRIPTION PREVIOUSLY AUTHORIZED BY DOCTOR:BOBBY ZULETA clonazepam 0.5 mg ta blet RxNorm: 211160 1 Tablet(s) PO BID 03/13/2015 11/05/2015 Inactive sodium bicarbonate 6 50 mg tablet RxNorm: 430188 2 Tablet(s) PO BID 03/08/2015 06/02/2015 Inactive allopurinol 300 mg t ablet RxNorm: 650208 TAKE 1 TABLET BY MOUT H ONCE DAILY. 03/05/2015 09/30/2015 In active N O T I C E PRESCRIPTION PREVIOUSLY A UTHORIZED BY DOCTOR:BOBBY ZULETA Plavix 75 mg tablet RxNorm: 726148 1 Tablet(s) PO daily 02/12/2015 09/09/2015 Inactive clonazepam 0.5 mg ta blet RxNorm: 361886 1 Tablet(s) PO BID 02/11/2015 03/11/2015 Inactive Carafate 1 gram tablet RxNorm: 650790 TAKE 1 TABLET TWICE A DAY FOR 30 DAYS 02/08/2015 02/07/2015 In active Generic For:CARAFATE 1GM 02/08/2015 12:3 6:39 PM Carafate 1 gram tablet RxNorm: 182821 Tablet(s) TAKE 1 TABLET TWICE A DAY FOR 30 DAYS 02/08/2015 09/01/2015 Inactive Generic For:CARAFATE 1GM 02/08/2015 12:3 6:39 PM potassium chloride 2 0 mEq/15 mL oral liquid RxNorm: 715819 30 Milliliter(s) (40m Eq) PO daily 02/05/2015 12/01/2015 Inactive atenolol 50 mg tablet RxNorm: 833644 1 Tablet(s) PO daily 02/04/2015 05/03/2015 Inactive [SAVINGS FOR NON-COVERED DRUGS -- BIN:00 3585, PCN: [email or web address], Group: XXXXX, ID# [id number], Questions: . THIS IS NOT INSURANCE.] potassium chloride 2 0 mEq/15 mL oral liquid RxNorm: 874746 30 Milliliter(s) (40m Eq) PO daily 01/08/2015 02/04/2015 Inactive potassium chloride 2 0 mEq/15 mL oral liquid RxNorm: 453291 30 Milliliter(s) (40m Eq) PO daily 12/07/2014 01/07/2015 Inactive atenolol 50 mg tablet RxNorm: 382650 1 Tablet(s) PO daily 11/09/2014 11/08/2014 Inactive atenolol 50 mg tablet RxNorm: 270524 1 Tablet(s) PO daily 11/09/2014 02/03/2015 Inactive [SAVINGS FOR NON-COVERED DRUGS -- BIN:00 3585, PCN: [email or web address], Group: XXXXX, ID# [id number], Questions: . THIS IS NOT INSURANCE.] Voltaren 1 % topical gel RxNorm: 748160 TOP No St art Date Active verapamil ER (HS) 24 0 mg tablet,extended release 24 hr RxNorm: 848192 1 Tablet(s) PO daily No Start Date Active aspirin 81 mg tablet RxNorm: 792277 1 Tablet(s) PO daily No Start Date Active Zofran 4 mg tablet RxNorm: 288731 1 Tablet(s) PO PRN No Start Date Active B12 1000 mcg RxNorm: 1 Tablet(s) PO daily No Start Date Active magnesium oxide 400 mg capsule RxNorm: 704454 2 Capsule(s) PO BID No Start Date Active Synthroid 150 mcg ta blet RxNorm: 238097 1 Tablet(s) PO daily No Start Date 04/04/2015 Inactive Coumadin 5 mg tablet RxNorm: 707206 1 Tablet(s) PO daily No Start Date 04/03/2015 Inactive cranberry 1,000 mg c apsule RxNorm: 640003 1 Capsule(s) PO daily No Start Date 04/13/2018 Inactive allopurinol 300 mg t ablet RxNorm: 949230 1 Tablet(s) PO daily No Start Date 03/04/2015 Inactive Prilosec 20 mg capsu le,delayed release RxNorm: 911465 1 Capsule(s) PO PRN No Start Date 08/01/2015 Inactive potassium chloride 2 0 mEq/15 mL oral liquid RxNorm: 606380 30 Milliliter(s) (40m Eq) PO daily No Start Date 12/06/2014 Inactive atenolol 50 mg tablet RxNorm: 006321 1 Tablet(s) PO daily No Start Date 08/29/2017 Inactive Lipitor 40 mg tablet RxNorm: 324152 1 Tablet(s) PO daily No Start Date 09/19/2017 Inactive Effexor 75 mg tablet RxNorm: 502089 1 Tablet(s) PO daily No Start Date 04/04/2015 Inactive Carafate 1 gram tablet RxNorm: 014821 1 Tablet(s) PO BID No Start Date 02/07/2015 Inactive clonazepam 0.5 mg ta blet RxNorm: 954039 1 Tablet(s) PO BID No Start Date 02/10/2015 Inactive Plavix 75 mg tablet RxNorm: 634746 1 Tablet(s) PO daily No Start Date 02/11/2015 Inactive sodium bicarbonate 6 50 mg tablet RxNorm: 263986 2 Tablet(s) PO BID No Start Date 09/01/2015 Inactive Lovenox 30 mg/0.3 mL subcutaneous syringe RxNorm: 290237 0.3 Milliliter(s) SQ Q12H No Start Date 03/15/2017 Inactive Fish Oil 1,000 mg ca psule RxNorm: 1 Capsule(s) PO daily No Start Date 01/13/2016 Inactive Detrol LA 4 mg capsu le,extended release RxNorm: 772183 1 Capsule(s) PO daily No Start Date 06/02/2015 Inactive Medication Administered Medication Codes Instruc tions Start Date Status Kenalog 40 mg/mL suspension for injection RxNorm: 2159883 Milliliter 09/02/2018 No longer Active Immunizations Vaccine Codes Date Status SHINGARIX CVX: 121 03/23 completed Assessments Condition Codes Effectiv e Dates Mixed hyperlipidemia ICD-10: E78.2 ICD-9: 272.4 10/05/2018 Other acute sinusitis ICD-10: J01.80 ICD-9: 461.8 09/02/2018 Other allergic rhinitis ICD-10: J30. 89 ICD-9: 477.8 09/02/2018 Hypothyroidism, unspecified ICD-10: E03.9 ICD-9: 244.9 04/14/2018 Essential (primary) hypertension ICD -10: I10 ICD-9: 401.9 04/14/2018 [facility] (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 ICD-10: Z79.01 ICD-9: [...] fatigue ICD-10: R53.83 ICD-9: 780.79 08/20/2016 Other residential (current) drug therapy ICD-10: Z79.899 ICD-9: V58.69 [...] Code Item Item Code Result Date Pt Vjn9449 PT 24.4 seconds 12/09/2018 Pt Lao0870 INR 2.2 12/09/2018 Pt Jrp4077 Low Intensity - 1.5-2.0 12/09/2018 Pt Foe5733 Mod intensity - 2.0-3.0 12/09/2018 Pt Aia5985 Hi intensity - 3.0-4.0 12/09/2018 Pt Lwy2951 PT 35.0 seconds 12/01/2018 Pt Gam0512 INR 3.5 12/01/2018 Pt Jmt5347 Low Intensity - 1.5-2.0 12/01/2018 Pt Oym1599 Mod intensity - 2.0-3.0 12/01/2018 Pt Vaq9867 Hi intensity - 3.0-4.0 12/01/2018 Pt Ill2350 PT 26.3 seconds 10/13/2018 Pt Eha3066 INR 2.5 10/13/2018 Pt Pma2521 Low Intensity - 1.5-2.0 10/13/2018 Pt Het0670 Mod intensity - 2.0-3.0 10/13/2018 Pt Nne5178 Hi intensity - 3.0-4.0 10/13/2018 Lipid Ord30 CHOL 180 mg/dL 10/07/2018 Lipid Ord30 HDL 74.0 mg/dl 10/07/2018 Lipid Ord30 TRIG 111 mg/dL 10/07/2018 Lipid Ord30 LDL 84 mg/dL 10/07/2018 Lipid Ord30 C/HDL 2.4 Ratio 10/07/2018 Pt Qcz6682 PT 38.1 seconds 10/07/2018 Pt Nqu7006 INR 3.9 10/07/2018 Pt Sdk0886 Low Intensity - 1.5-2.0 10/07/2018 Pt Fnc6758 Mod intensity - 2.0-3.0 10/07/2018 Pt Ioe3504 Hi intensity - 3.0-4.0 10/07/2018 Tsh Ord6 TSH (3rd IS) 0.43 uIU/mL 09/02/2018 Comp Metabolic Zrc478 NA 136 mEq/L 09/02/[address] K 4.1 mEq/L 09/02/2018 Comp Metabolic Mpw673 CL 103 mEq/L 09/02/2018 Comp Metabolic Vru689 CO2 20.0 mEq/L 09/02/2018 Comp Metabolic Roi728 AN ION GAP 17 09/02/2018 Comp Metabolic Kzq990 GL UCOSE 124 mg/dL 09/02/2018 Comp Metabolic Fbx823 Cr eat 1.0 mg/dL 09/02/2018 Comp Metabolic Ejb659 eG FR 57 ml/min/1.73m2 09/02 Comp Metabolic Mki489 BUN 24 mg/dL 09/02/2018 Comp Metabolic Vgw140 B/ C Ratio 23.8 Ratio 09/02/2018 Comp Metabolic Kon431 CA LCIUM 9.5 mg/dL 09/02/2018 Comp Metabolic Bhj958 AL K PHOS 64 U/L 09/02/2018 Comp Metabolic Wbp346 T(SGOT) 24 U/L 09/02/2018 Comp Metabolic Dej858 AL T(SGPT) 23 U/L 09/02/2018 Comp Metabolic Qor932 BI LI T 0.5 mg/dL 09/02/2018 Comp Metabolic Qdp605 AL BUMIN 4.2 g/dL 09/02/2018 Comp Metabolic Jbd054 TP RO 7.4 g/dL 09/02/2018 Comp Metabolic Zvc554 GL OB 3.2 g/dL 09/02/2018 Comp Metabolic Vgb747 A/ G Ratio 1.3 Ratio 09/02/2018 Comp Metabolic Agj695 Os mo 277 mOsmo 09/02/2018 Pt Cck5555 PT 40.6 seconds 09/02/2018 Pt Eon7979 INR 4.2 09/02/2018 Pt Gth4168 Low Intensity - 1.5-2.0 09/02/2018 Pt Lco0280 Mod intensity - 2.0-3.0 09/02/2018 Pt Huj3681 Hi intensity - 3.0-4.0 09/02/2018 Free T4 Aap964 FREE T4 1.51 ng/dL 09/02/2018 Magnesium Ord90 Mag 1.8 mg/dL 09/02/2018 Pt Gpy9301 PT 29.2 seconds 08/05/2018 Pt Wbi5184 INR 2.8 08/05/2018 Pt Ilc6480 Low Intensity - 1.5-2.0 08/05/2018 Pt Ooc5211 Mod intensity - 2.0-3.0 08/05/2018 Pt Lpk4693 Hi intensity - 3.0-4.0 08/05/2018 Pt Jcn0824 PT 30.2 seconds 07/25/2018 Pt Qmd2387 INR 2.9 07/25/2018 Pt Ake3243 Low Intensity - 1.5-2.0 07/25/2018 Pt Qml2108 Mod intensity - 2.0-3.0 07/25/2018 Pt Lpd6437 Hi intensity - 3.0-4.0 07/25/2018 Pt Kel6404 PT 25.2 seconds 07/19/2018 Pt Xar7007 INR 2.3 07/19/2018 Pt Kcj0454 Low Intensity - 1.5-2.0 07/19/2018 Pt Znc8443 Mod intensity - 2.0-3.0 07/19/2018 Pt Idf1105 Hi intensity - 3.0-4.0 07/19/2018 Pt Ukr0400 PT 17.4 seconds 07/15/2018 Pt Uag4238 INR 1.5 07/15/2018 Pt Apj0034 Low Intensity - 1.5-2.0 07/15/2018 Pt Ujf4261 Mod intensity - 2.0-3.0 07/15/2018 Pt Kvq0200 Hi intensity - 3.0-4.0 07/15/2018 Pt Vsi5601 PT 17.8 seconds 07/08/2018 Pt Rts1951 INR 1.5 07/08/2018 Pt Unm0917 Low Intensity - 1.5-2.0 07/08/2018 Pt Lva5213 Mod intensity - 2.0-3.0 07/08/2018 Pt Ogi1850 Hi intensity - 3.0-4.0 07/08/2018 Pt Fjp1063 PT 19.2 seconds 07/01/2018 Pt Fub8404 INR 1.7 07/01/2018 Pt Lzw7155 Low Intensity - 1.5-2.0 07/01/2018 Pt Ldi0924 Mod intensity - 2.0-3.0 07/01/2018 Pt Lpw9217 Hi intensity - 3.0-4.0 07/01/2018 Pt Ffx0797 PT 17.4 seconds 06/23/2018 Pt Wsl7184 INR 1.5 06/23/2018 Pt Ybk7209 Low Intensity - 1.5-2.0 06/23/2018 Pt Epd8381 Mod intensity - 2.0-3.0 06/23/2018 Pt Wqn3766 Hi intensity - 3.0-4.0 06/23/2018 Pt Iuf4171 PT 18.4 seconds 06/17/2018 Pt Nez9386 INR 1.6 06/17/2018 Pt Nea7894 Low Intensity - 1.5-2.0 06/17/2018 Pt Hbq1559 Mod intensity - 2.0-3.0 06/17/2018 Pt Slx1917 Hi intensity - 3.0-4.0 06/17/2018 Sed Rate [...] 30.4 pg 06/08/2018 Cbc With Differential Ord2 [place]% 9.4 % 06/08/2018 Cbc With Differential Ord2 [...] 1.20 K/ul 06/08/2018 Cbc With Differential Ord2 [place] ABS# 0.5 K/ul 06/08/2018 Cbc With Differential Ord2 Eos ABS# 0.1 K/ul 06/08/2018 Cbc With Differential Ord2 Baso ABS# 0.1 K/ul 06/08/2018 C-Reactive Protein Qnt Crqnt CRP 0.1 mg/dl 06/08/2018 Pt Otn2951 PT 17.6 seconds 06/08/2018 Pt Tnn0567 INR 1.5 06/08/2018 Pt Wnt2919 Low Intensity - 1.5-2.0 06/08/2018 Pt Vem9719 Mod intensity - 2.0-3.0 06/08/2018 Pt Vmo6130 Hi intensity - 3.0-4.0 06/08/2018 Pt Oqo0691 PT 16.8 seconds 05/10/2018 Pt Uhi5659 INR 1.4 05/10/2018 Pt Qyw7546 Low Intensity - 1.5-2.0 05/10/2018 Pt Fap6003 Mod intensity - 2.0-3.0 05/10/2018 Pt Njs6371 Hi intensity - 3.0-4.0 05/10/2018 Pt Toe1517 PT 16.7 seconds 05/04/2018 Pt Xbu1836 INR 1.4 05/04/2018 Pt Lez7376 Low Intensity - 1.5-2.0 05/04/2018 Pt Ptj6706 Mod intensity - 2.0-3.0 05/04/2018 Pt Wzl7479 Hi intensity - 3.0-4.0 05/04/2018 Free T4 Pug883 FREE T4 1.09 ng/dL 04/14/2018 Tsh Ord6 TSH (3rd IS) 2.36 uIU/mL 04/14/2018 Pt Auq9309 PT 20.3 seconds 04/14/2018 Pt Xop0353 INR 1.8 04/14/2018 Pt Iwg0290 Low Intensity - 1.5-2.0 04/14/2018 Pt Pqn8160 Mod intensity - 2.0-3.0 04/14/2018 Pt Zlh5878 Hi intensity - 3.0-4.0 04/14/2018 Lipid Ord30 CHOL 149 mg/dL 04/14/2018 Lipid Ord30 HDL 49.0 mg/dl 04/14/2018 Lipid Ord30 TRIG 161 mg/dL 04/14/2018 Lipid Ord30 LDL 68 mg/dL 04/14/2018 Lipid Ord30 C/HDL 3.0 Ratio 04/14/2018 %Hba1C Xib067 % HbA1c 65964-3 5.9 % 04/14/2018 %Hba1C Mab175 Gluc Ave 123 mg/dL 04/14/2018 Comp Metabolic Jlp477 NA 140 mEq/L 04/14/2018 Comp Metabolic Fvl286 K 4.1 mEq/L 04/14/2018 Comp Metabolic Dcj605 CL 105 mEq/L 04/14/2018 Comp Metabolic Frz622 CO2 28.0 mEq/L 04/14/2018 Comp Metabolic Cjw296 AN ION GAP 11 04/14/2018 Comp Metabolic Ycg024 GL UCOSE 112 mg/dL 04/14/2018 Comp Metabolic Btw096 Cr eat 1.0 mg/dL 04/14/2018 Comp Metabolic Apc676 eG FR 58 ml/min/1.73m2 04/14 Comp Metabolic Ely726 BUN 20 mg/dL 04/14/2018 Comp Metabolic Lgi511 B/ C Ratio 20.2 Ratio 04/14/2018 Comp Metabolic Tyq101 CA LCIUM 10.0 mg/dL 04/14/2018 Comp Metabolic Tzu244 AL K PHOS 51 U/L 04/14/2018 Comp Metabolic Ltt926 T(SGOT) 24 U/L 04/14/2018 Comp Metabolic Bjl833 AL T(SGPT) 21 U/L 04/14/2018 Comp Metabolic Ssc164 BI LI T 0.8 mg/dL 04/14/2018 Comp Metabolic Vvy552 AL BUMIN 4.2 g/dL 04/14/2018 Comp Metabolic Nkf703 TP RO 7.1 g/dL 04/14/2018 Comp Metabolic Vga540 GL OB 2.9 g/dL 04/14/2018 Comp Metabolic Hpf788 A/ G Ratio 1.5 Ratio 04/14/2018 Comp Metabolic Meb891 Os mo 283 mOsmo 04/14/2018 Cbc With [...] 30.7 pg 04/14/2018 Cbc With Differential Ord2 [place]% 10.6 % 04/14/2018 Cbc With Differential Ord2 [...] 1.18 K/ul 04/14/2018 Cbc With Differential Ord2 [place] ABS# 0.5 K/ul 04/14/2018 Cbc With Differential Ord2 Eos ABS# 0.2 K/ul 04/14/2018 Cbc With Differential Ord2 Baso ABS# 0.1 K/ul 04/14/2018 Pt Pfi6941 PT 29.3 seconds 02/11/2018 Pt Tae3502 INR 2.8 02/11/2018 Pt Lby9484 Low Intensity - 1.5-2.0 02/11/2018 Pt Hkz3289 Mod intensity - 2.0-3.0 02/11/2018 Pt Ecr3854 Hi intensity - 3.0-4.0 02/11/2018 Comp Metabolic The151 NA 141 mEq/L 01/05/2018 Comp Metabolic Gam434 K 3.7 mEq/L 01/05/2018 Comp Metabolic Usy025 CL 102 mEq/L 01/05/2018 Comp Metabolic Gnj015 CO2 29.0 mEq/L 01/05/2018 Comp Metabolic Vxx173 AN ION GAP 14 01/05/2018 Comp Metabolic Ran496 GL UCOSE 136 mg/dL 01/05/2018 Comp Metabolic Ghg829 Cr eat 1.0 mg/dL 01/05/2018 Comp Metabolic Zkq419 eG FR 61 ml/min/1.73m2 01/05 Comp Metabolic Ttb898 BUN 22 mg/dL 01/05/2018 Comp Metabolic Okp425 B/ C Ratio 22.9 Ratio 01/05/2018 Comp Metabolic Snq455 CA LCIUM 9.7 mg/dL 01/05/2018 Comp Metabolic Rvj163 AL K PHOS 57 U/L 01/05/2018 Comp Metabolic Zdc570 T(SGOT) 21 U/L 01/05/2018 Comp Metabolic Fsz249 AL T(SGPT) 19 U/L 01/05/2018 Comp Metabolic Ujk177 BI LI T 0.9 mg/dL 01/05/2018 Comp Metabolic Non569 AL BUMIN 4.1 g/dL 01/05/2018 Comp Metabolic Xar818 TP RO 7.1 g/dL 01/05/2018 Comp Metabolic Apm835 GL OB 3.0 g/dL 01/05/2018 Comp Metabolic Ajk805 A/ G Ratio 1.4 Ratio 01/05/2018 Comp Metabolic Utu600 Os mo 287 mOsmo 01/05/2018 Free T4 Vfb509 FREE T4 1.05 ng/dL 01/05/2018 %Hba1C Tde070 % HbA1c 07122-6 6.0 % 01/05/2018 %Hba1C Cbn911 Gluc Ave 126 mg/dL 01/05/2018 Cbc With [...] 30.6 pg 01/05/2018 Cbc With Differential Ord2 [place]% 10.5 % 01/05/2018 Cbc With Differential Ord2 [...] 1.27 K/ul 01/05/2018 Cbc With Differential Ord2 [place] ABS# 0.5 K/ul 01/05/2018 Cbc With Differential Ord2 Eos ABS# 0.2 K/ul 01/05/2018 Cbc With Differential Ord2 Baso ABS# 0.1 K/ul 01/05/2018 Pt Hck9835 PT 20.7 seconds 01/05/2018 Pt Mom4336 INR 1.8 01/05/2018 Pt Amd4278 Low Intensity - 1.5-2.0 01/05/2018 Pt Iwd2611 Mod intensity - 2.0-3.0 01/05/2018 Pt Lop0119 Hi intensity - 3.0-4.0 01/05/2018 Tsh Ord6 TSH (3rd IS) 2.34 uIU/mL 01/05/2018 Lipid Ord30 CHOL 156 mg/dL 01/05/2018 Lipid Ord30 HDL 48.0 mg/dl 01/05/2018 Lipid Ord30 TRIG 207 mg/dL 01/05/2018 Lipid Ord30 LDL 67 mg/dL 01/05/2018 Lipid Ord30 C/HDL 3.3 Ratio 01/05/2018 Pt Uay1893 PT 28.3 seconds 11/26/2017 Pt Uzn6827 INR 2.6 11/26/2017 Pt Ljm4818 Low Intensity - 1.5-2.0 11/26/2017 Pt Qgg6686 Mod intensity - 2.0-3.0 11/26/2017 Pt Tzk7921 Hi intensity - 3.0-4.0 11/26/2017 Pt Qte4707 PT 36.5 seconds 11/19/2017 Pt Btb3740 INR 3.6 11/19/2017 Pt Klw2589 Low Intensity - 1.5-2.0 11/19/2017 Pt Bfk9228 Mod intensity - 2.0-3.0 11/19/2017 Pt Acc8216 Hi intensity - 3.0-4.0 11/19/2017 Pt Vxh6603 PT 22.9 seconds 10/15/2017 Pt Jul7375 INR 2.0 10/15/2017 Pt Crw1145 Low Intensity - 1.5-2.0 10/15/2017 Pt Faw2499 Mod intensity - 2.0-3.0 10/15/2017 Pt Bpj7334 Hi intensity - 3.0-4.0 10/15/2017 Pt Yrc0542 PT 25.9 seconds 10/01/2017 Pt Cft1646 INR 2.4 10/01/2017 Pt Msu9963 Low Intensity - 1.5-2.0 10/01/2017 Pt Cul5441 Mod intensity - 2.0-3.0 10/01/2017 Pt Igd3434 Hi intensity - 3.0-4.0 10/01/2017 Pt Mqt1633 PT 20.6 seconds 09/24/2017 Pt Lpd2355 INR 1.8 09/24/2017 Pt Xdh3118 Low Intensity - 1.5-2.0 09/24/2017 Pt Jle8513 Mod intensity - 2.0-3.0 09/24/2017 Pt Wuq2694 Hi intensity - 3.0-4.0 09/24/2017 Pt Ppi9008 PT 21.0 seconds 09/15/2017 Pt Ljc9173 INR 1.8 09/15/2017 Pt Rjx1533 Low Intensity - 1.5-2.0 09/15/2017 Pt Hwk8520 Mod intensity - 2.0-3.0 09/15/2017 Pt Rie8055 Hi intensity - 3.0-4.0 09/15/2017 Pt Let0557 PT 19.0 seconds 09/03/2017 Pt Umn8353 INR 1.6 09/03/2017 Pt Nke8631 Low Intensity - 1.5-2.0 09/03/2017 Pt Rif1236 Mod intensity - 2.0-3.0 09/03/2017 Pt Abx6930 Hi intensity - 3.0-4.0 09/03/2017 Pt Ils4440 PT 17.6 seconds 08/23/2017 Pt Ysu0693 INR 1.5 08/23/2017 Pt Vxs3746 Low Intensity - 1.5-2.0 08/23/2017 Pt Ebx4431 Mod intensity - 2.0-3.0 08/23/2017 Pt Iur3112 Hi intensity - 3.0-4.0 08/23/2017 Pt Hqi3552 PT 12.7 seconds 08/20/2017 Pt Keg5818 INR 1.0 08/20/2017 Pt Yhd1553 Low Intensity - 1.5-2.0 08/20/2017 Pt Tsw3748 Mod intensity - 2.0-3.0 08/20/2017 Pt Uuz8635 Hi intensity - 3.0-4.0 08/20/2017 Pt Rtt2340 PT 12.9 seconds 08/17/2017 Pt Jyl1223 INR 1.0 08/17/2017 Pt Lim4470 Low Intensity - 1.5-2.0 08/17/2017 Pt Jpe0761 Mod intensity - 2.0-3.0 08/17/2017 Pt Zsp6159 Hi intensity - 3.0-4.0 08/17/2017 Pt Rna6827 PT 18.5 seconds 08/10/2017 Pt Cti3985 INR 1.6 08/10/2017 Pt Zaf8019 Low Intensity - 1.5-2.0 08/10/2017 Pt Usk2497 Mod intensity - 2.0-3.0 08/10/2017 Pt Wcg9142 Hi intensity - 3.0-4.0 08/10/2017 Tsh Ord6 [...] 29.3 pg 05/27/2017 Cbc With Differential Ord2 [place]% 8.1 % 05/27/2017 Cbc With Differential Ord2 [...] 1.11 K/ul 05/27/2017 Cbc With Differential Ord2 [place] ABS# 0.6 K/ul 05/27/2017 Cbc With Differential Ord2 Eos ABS# 0.2 K/ul 05/27/2017 Cbc With Differential Ord2 Baso ABS# 0.1 K/ul 05/27/2017 Pt Xhv4521 PT 28.2 seconds 05/27/2017 Pt Fkh1001 INR 2.6 05/27/2017 Pt Twg8819 Low Intensity - 1.5-2.0 05/27/2017 Pt Eso6819 Mod intensity - 2.0-3.0 05/27/2017 Pt Kti5938 Hi intensity - 3.0-4.0 05/27/2017 Lipid Ord30 CHOL 167 mg/dL 05/27/2017 Lipid Ord30 HDL 49.0 mg/dl 05/27/2017 Lipid Ord30 TRIG 347 mg/dL 05/27/2017 Lipid Ord30 LDL 49 mg/dL 05/27/2017 Lipid Ord30 C/HDL 3.4 Ratio 05/27/2017 Magnesium Ord90 Mag 1.4 mg/dL 05/27/2017 %Hba1C Akr765 % HbA1c 28953-8 5.9 % 05/27/2017 %Hba1C Yyn798 Gluc Ave 123 mg/dL 05/27/2017 Comp Metabolic Miu472 NA 138 mEq/L 05/27/2017 Comp Metabolic Fur963 K 4.1 mEq/L 05/27/2017 Comp Metabolic Zuw462 CL 101 mEq/L 05/27/2017 Comp Metabolic Pea618 CO2 31.0 mEq/L 05/27/2017 Comp Metabolic Oqz280 AN ION GAP 10 05/27/2017 Comp Metabolic Tzc098 GL UCOSE 117 mg/dL 05/27/2017 Comp Metabolic Vkp354 Cr eat 0.9 mg/dL 05/27/2017 Comp Metabolic Yia304 eG FR 62 ml/min/1.73m2 05/27 Comp Metabolic Kib383 BUN 25 mg/dL 05/27/2017 Comp Metabolic Kta884 B/ C Ratio 26.6 Ratio 05/27/2017 Comp Metabolic Asg084 CA LCIUM 9.5 mg/dL 05/27/2017 Comp Metabolic Qns154 AL K PHOS 73 U/L 05/27/2017 Comp Metabolic Qai887 T(SGOT) 18 U/L 05/27/2017 Comp Metabolic Dhq056 AL T(SGPT) 12 U/L 05/27/2017 Comp Metabolic Yfz373 BI LI T 0.5 mg/dL 05/27/2017 Comp Metabolic Nyf646 AL BUMIN 4.1 g/dL 05/27/2017 Comp Metabolic Bws762 TP RO 7.1 g/dL 05/27/2017 Comp Metabolic Plo238 GL OB 3.0 g/dL 05/27/2017 Comp Metabolic Xsj023 A/ G Ratio 1.3 Ratio 05/27/2017 Comp Metabolic Sqh747 Os mo 281 mOsmo 05/27/2017 Free T4 Fxg267 FREE T4 0.91 ng/dL 05/27/2017 Pt Rdv2334 PT 29.2 seconds 04/16/2017 Pt Gdy7528 INR 2.7 04/16/2017 Pt Vlp2996 Low Intensity - 1.5-2.0 04/16/2017 Pt Mzd2653 Mod intensity - 2.0-3.0 04/16/2017 Pt Kpk7426 Hi intensity - 3.0-4.0 04/16/2017 Pt Hnl5036 PT 30.7 seconds 03/31/2017 Pt Rpo0166 INR 2.9 03/31/2017 Pt Sqj7333 Low Intensity - 1.5-2.0 03/31/2017 Pt Yvq5837 Mod intensity - 2.0-3.0 03/31/2017 Pt Cuu9301 Hi intensity - 3.0-4.0 03/31/2017 Pt Ydk4703 PT 21.3 seconds 03/26/2017 Pt Vvt1017 INR 1.9 03/26/2017 Pt Tpn4929 Low Intensity - 1.5-2.0 03/26/2017 Pt Ind9029 Mod intensity - 2.0-3.0 03/26/2017 Pt Yhp3002 Hi intensity - 3.0-4.0 03/26/2017 Pt Cjn4437 PT 19.8 seconds 03/22/2017 Pt Zon3497 INR 1.7 03/22/2017 Pt Qmb6995 Low Intensity - 1.5-2.0 03/22/2017 Pt Yiu8463 Mod intensity - 2.0-3.0 03/22/2017 Pt Zzx6476 Hi intensity - 3.0-4.0 03/22/2017 Pt Akt8597 PT 15.6 seconds 03/19/2017 Pt Wjy0467 INR 1.3 03/19/2017 Pt Zpw2383 Low Intensity - 1.5-2.0 03/19/2017 Pt Ezk4019 Mod intensity - 2.0-3.0 03/19/2017 Pt Vwe3600 Hi intensity - 3.0-4.0 03/19/2017 Pt Axs9159 PT 13.7 seconds 03/15/2017 Pt Xxl4626 INR 1.1 03/15/2017 Pt Fwf3573 Low Intensity - 1.5-2.0 03/15/2017 Pt Uub3826 Mod intensity - 2.0-3.0 03/15/2017 Pt Awz3847 Hi intensity - 3.0-4.0 03/15/2017 Pt Viz6212 PT 25.8 seconds 01/28/2017 Pt Zgm5462 INR 2.4 01/28/2017 Pt Cxv1141 Low Intensity - 1.5-2.0 01/28/2017 Pt Mvd0248 Mod intensity - 2.0-3.0 01/28/2017 Pt Wwl8095 Hi intensity - 3.0-4.0 01/28/2017 %Hba1C Dti902 % HbA1c 92174-5 6.4 % 10/23/2016 %Hba1C Xyv167 Gluc Ave 137 mg/dL 10/23/2016 Comp Metabolic Cet949 NA 138 mEq/L 10/23/2016 Comp Metabolic Yaf702 K 3.4 mEq/L 10/23/2016 Comp Metabolic Kas978 CL 100 mEq/L 10/23/2016 Comp Metabolic Zqo989 CO2 30.0 mEq/L 10/23/2016 Comp Metabolic Ifz607 AN ION GAP 11 10/23/2016 Comp Metabolic Uyi275 GL UCOSE 139 mg/dL 10/23/2016 Comp Metabolic Cle021 Cr eat 0.9 mg/dL 10/23/2016 Comp Metabolic Chr956 eG FR 62 ml/min/1.73m2 10/23 Comp Metabolic Sda134 BUN 22 mg/dL 10/23/2016 Comp Metabolic Mqx777 B/ C Ratio 23.4 Ratio 10/23/2016 Comp Metabolic Cgw855 CA LCIUM 8.7 mg/dL 10/23/2016 Comp Metabolic Pya349 AL K PHOS 66 U/L 10/23/2016 Comp Metabolic Qjm953 T(SGOT) 20 U/L 10/23/2016 Comp Metabolic Jdg814 AL T(SGPT) 10 U/L 10/23/2016 Comp Metabolic Pne040 BI LI T 0.5 mg/dL 10/23/2016 Comp Metabolic Fyx727 AL BUMIN 3.5 g/dL 10/23/2016 Comp Metabolic Sfq597 TP RO 6.3 g/dL 10/23/2016 Comp Metabolic Pnn976 GL OB 2.8 g/dL 10/23/2016 Comp Metabolic Dpn305 A/ G Ratio 1.3 Ratio 10/23/2016 Comp Metabolic Cdk702 Os mo 281 mOsmo 10/23/2016 Pt Eqh8546 PT 26.8 seconds 10/23/2016 Pt Ivx1044 INR 2.7 10/23/2016 Pt Yft3689 Low Intensity - 1.5-2.0 10/23/2016 Pt Nmr4756 Mod intensity - 2.0-3.0 10/23/2016 Pt Xrr9840 Hi intensity - 3.0-4.0 10/23/2016 Pt Lsd4882 PT 28.3 seconds 09/25/2016 Pt Emr7061 INR 2.8 09/25/2016 Pt Nuz4304 Low Intensity - 1.5-2.0 09/25/2016 Pt Eyf3503 Mod intensity - 2.0-3.0 09/25/2016 Pt Nyd7229 Hi intensity - 3.0-4.0 09/25/2016 Metabolic Ord15 [...] Metabolic Ord15 CALCIUM 8.8 mg/dL 09/25/2016 Pt Xcy6318 PT 30.6 seconds 09/11/2016 Pt Peg6368 INR 3.2 09/11/2016 Pt Qrr4540 Low Intensity - 1.5-2.0 09/11/2016 Pt Kki8128 Mod intensity - 2.0-3.0 09/11/2016 Pt Trq4829 Hi intensity - 3.0-4.0 09/11/2016 Comp Metabolic Bns625 NA 138 mEq/L 09/11/2016 Comp Metabolic Zxo760 K 4.4 mEq/L 09/11/2016 Comp Metabolic Icy475 CL 103 mEq/L 09/11/2016 Comp Metabolic Vcf318 CO2 31.0 mEq/L 09/11/2016 Comp Metabolic Fjf141 AN ION GAP 8 09/11/2016 Comp Metabolic Dcq021 GL UCOSE 146 mg/dL 09/11/2016 Comp Metabolic Dvy062 Cr eat 1.0 mg/dL 09/11/2016 Comp Metabolic Ucj858 eG FR 60 ml/min/1.73m2 09/11 Comp Metabolic Avz352 BUN 16 mg/dL 09/11/2016 Comp Metabolic Tfu255 B/ C Ratio 16.5 Ratio 09/11/2016 Comp Metabolic Pfs963 CA LCIUM 8.7 mg/dL 09/11/2016 Comp Metabolic Mmb317 AL K PHOS 52 U/L 09/11/2016 Comp Metabolic Euu196 T(SGOT) 19 U/L 09/11/2016 Comp Metabolic Url983 AL T(SGPT) 11 U/L 09/11/2016 Comp Metabolic Dde088 BI LI T 0.7 mg/dL 09/11/2016 Comp Metabolic Mqs382 AL BUMIN 3.3 g/dL 09/11/2016 Comp Metabolic Gne292 TP RO 5.8 g/dL 09/11/2016 Comp Metabolic Icm020 GL OB 2.5 g/dL 09/11/2016 Comp Metabolic Fzw006 A/ G Ratio 1.3 Ratio 09/11/2016 Comp Metabolic Njb229 Os mo 280 mOsmo 09/11/2016 C-Reactive Protein Qnt Crqnt CRP 0.1 mg/dl 08/21/2016 Comp Metabolic Byt358 NA 139 mEq/L 08/21/2016 Comp Metabolic Mwv245 K 4.1 mEq/L 08/21/2016 Comp Metabolic Xaw015 CL 102 mEq/L 08/21/2016 Comp Metabolic Nbb152 CO2 30.0 mEq/L 08/21/2016 Comp Metabolic Dbk616 AN ION GAP 11 08/21/2016 Comp Metabolic Tpv532 GL UCOSE 148 mg/dL 08/21/2016 Comp Metabolic Wyc367 Cr eat 1.0 mg/dL 08/21/2016 Comp Metabolic Hay993 eG FR 55 ml/min/1.73m2 08/21 Comp Metabolic Hsb339 BUN 21 mg/dL 08/21/2016 Comp Metabolic Mpr313 B/ C Ratio 20.2 Ratio 08/21/2016 Comp Metabolic Ogs760 CA LCIUM 9.4 mg/dL 08/21/2016 Comp Metabolic Fsg525 AL K PHOS 63 U/L 08/21/2016 Comp Metabolic Bhs973 T(SGOT) 23 U/L 08/21/2016 Comp Metabolic Pph255 AL T(SGPT) 16 U/L 08/21/2016 Comp Metabolic Lvb271 BI LI T 0.6 mg/dL 08/21/2016 Comp Metabolic Lmk712 AL BUMIN 3.9 g/dL 08/21/2016 Comp Metabolic Xvc637 TP RO 6.8 g/dL 08/21/2016 Comp Metabolic Urv532 GL OB 2.9 g/dL 08/21/2016 Comp Metabolic Lsa964 A/ G Ratio 1.4 Ratio 08/21/2016 Comp Metabolic Vyt632 Os mo 283 mOsmo 08/21/2016 Sed Rate Ord21 ESR 16 mm/hr 08/21/2016 Pt Dju4486 PT 27.2 seconds 08/21/2016 Pt Ror6804 INR 2.7 08/21/2016 Pt Kub7737 Low Intensity - 1.5-2.0 08/21/2016 Pt Iqn9933 Mod intensity - 2.0-3.0 08/21/2016 Pt Pln7716 Hi intensity - 3.0-4.0 08/21/2016 Magnesium Ord90 Mag 1.9 mg/dL 08/21/2016 Pt Bfk1513 PT 25.9 seconds 06/17/2016 Pt Rsk4006 INR 2.5 06/17/2016 Pt Dle8556 Low Intensity - 1.5-2.0 06/17/2016 Pt Bcj4034 Mod intensity - 2.0-3.0 06/17/2016 Pt Pua4750 Hi intensity - 3.0-4.0 06/17/2016 Tsh Ord6 hTSH II 2.13 uIU/mL 06/08/2016 Free T4 Auq668 FREE T4 0.79 ng/dL 06/08/2016 Cbc With [...] 26.8 pg 06/08/2016 Cbc With Differential Ord2 [place]% 12.0 % 06/08/2016 Cbc With Differential Ord2 [...] 1.40 K/ul 06/08/2016 Cbc With Differential Ord2 [place] ABS# 0.7 K/ul 06/08/2016 Cbc With Differential Ord2 Eos ABS# 0.3 K/ul 06/08/2016 Cbc With Differential Ord2 Baso ABS# 0.1 K/ul 06/08/2016 %Hba1C Lje672 % HbA1c 46747-3 6.2 % 06/08/2016 %Hba1C Tqo729 Gluc Ave 131 mg/dL 06/08/2016 Comp Metabolic Ipb228 NA 138 mEq/L 06/08/2016 Comp Metabolic Nma362 K 3.9 mEq/L 06/08/2016 Comp Metabolic Thp637 CL 105 mEq/L 06/08/2016 Comp Metabolic Fsi024 CO2 27.0 mEq/L 06/08/2016 Comp Metabolic Ery091 AN ION GAP 10 06/08/2016 Comp Metabolic Mxb120 GL UCOSE 127 mg/dL 06/08/2016 Comp Metabolic Igf072 Cr eat 1.0 mg/dL 06/08/2016 Comp Metabolic Mkz325 eG FR 59 ml/min/1.73m2 06/08 Comp Metabolic Bid095 BUN 19 mg/dL 06/08/2016 Comp Metabolic Xfm354 B/ C Ratio 19.4 Ratio 06/08/2016 Comp Metabolic Bcr757 CA LCIUM 9.2 mg/dL 06/08/2016 Comp Metabolic Urm152 AL K PHOS 77 U/L 06/08/2016 Comp Metabolic Yvi080 T(SGOT) 19 U/L 06/08/2016 Comp Metabolic Elp320 AL T(SGPT) 13 U/L 06/08/2016 Comp Metabolic Cry931 BI LI T 0.5 mg/dL 06/08/2016 Comp Metabolic Txm515 AL BUMIN 3.8 g/dL 06/08/2016 Comp Metabolic Xen462 TP RO 6.6 g/dL 06/08/2016 Comp Metabolic Hcf275 GL OB 2.8 g/dL 06/08/2016 Comp Metabolic Uto795 A/ G Ratio 1.4 Ratio 06/08/2016 Comp Metabolic Xvk024 Os mo 280 mOsmo 06/08/2016 Pt Jgm5692 PT 36.1 seconds 06/08/2016 Pt Pfh9719 INR 3.9 06/08/2016 Pt Kyt4836 Low Intensity - 1.5-2.0 06/08/2016 Pt Zhy0101 Mod intensity - 2.0-3.0 06/08/2016 Pt Wbj1803 Hi intensity - 3.0-4.0 06/08/2016 Lipid Ord30 CHOL 149 mg/dL 06/08/2016 Lipid Ord30 HDL 46.0 mg/dl 06/08/2016 Lipid Ord30 TRIG 279 mg/dL 06/08/2016 Lipid Ord30 LDL 47 mg/dL 06/08/2016 Lipid Ord30 C/HDL 3.2 Ratio 06/08/2016 Pt Ujg9918 PT 30.9 seconds 02/12/2016 Pt Dhx4054 INR 3.2 02/12/2016 Pt Ike0218 Low Intensity - 1.5-2.0 02/12/2016 Pt Aoe6490 Mod intensity - 2.0-3.0 02/12/2016 Pt Jog7995 Hi intensity - 3.0-4.0 02/12/2016 Free T4 Aze213 FREE T4 1.24 ng/dL 09/27/2015 %Hba1C Klv491 % HbA1c 01474-5 6.4 % 09/27/2015 %Hba1C Yhd053 Gluc Ave 137 mg/dL 09/27/2015 Tsh Ord6 hTSH II 0.37 uIU/mL 09/27/2015 Pt Cby7491 PT 26.2 seconds 09/27/2015 Pt Eor0010 INR 2.5 09/27/2015 Pt Cxk9573 Low Intensity - 1.5-2.0 09/27/2015 Pt Dyt6017 Mod intensity - 2.0-3.0 09/27/2015 Pt Kuh5123 Hi intensity - 3.0-4.0 09/27/2015 Pt Oeb4584 PT 27.6 seconds 2015 Pt Alw9793 INR 2.7 2015 Pt Lla8744 Low Intensity - 1.5-2.0 2015 Pt Thf1684 Mod intensity - 2.0-3.0 2015 Pt Rmb4862 Hi intensity - 3.0-4.0 2015 %Hba1C Hax305 % HbA1c 46181-9 6.1 % 06/11/2015 %Hba1C Mgy334 Gluc Ave 128 mg/dL 06/11/2015 Cbc With [...] Ord2 RDW 15.8 % 06/10/2015 Comp Metabolic Oap892 NA 139 mEq/L 06/10/2015 Comp Metabolic Kqe467 K 4.1 mEq/L 06/10/2015 Comp Metabolic Enm721 CL 105 mEq/L 06/10/2015 Comp Metabolic Ilk134 CO2 27.0 mEq/L 06/10/2015 Comp Metabolic Lxr312 AN ION GAP 11 06/10/2015 Comp Metabolic Ajf759 GL UCOSE 127 mg/dL 06/10/2015 Comp Metabolic Aab119 Cr eat 1.0 mg/dL 06/10/2015 Comp Metabolic Mpg274 eG FR 59 ml/min/1.73m2 06/10 Comp Metabolic Zlm869 BUN 21 mg/dL 06/10/2015 Comp Metabolic Zvl200 B/ C Ratio 21.2 Ratio 06/10/2015 Comp Metabolic Otz882 CA LCIUM 9.2 mg/dL 06/10/2015 Comp Metabolic Acf167 AL K PHOS 87 U/L 06/10/2015 Comp Metabolic Pvl985 T(SGOT) 20 U/L 06/10/2015 Comp Metabolic Wfd941 AL T(SGPT) 17 U/L 06/10/2015 Comp Metabolic Crq739 BI LI T 0.4 mg/dL 06/10/2015 Comp Metabolic Kkm219 AL BUMIN 4.1 g/dL 06/10/2015 Comp Metabolic Kka705 TP RO 7.2 g/dL 06/10/2015 Comp Metabolic Xpo797 GL OB 3.1 g/dL 06/10/2015 Comp Metabolic Snt274 A/ G Ratio 1.3 Ratio 06/10/2015 Comp Metabolic Eln246 Os mo 282 mOsmo 06/10/2015 Tsh Ord6 hTSH II 0.86 uIU/mL 06/10/2015 Lipid Ord30 CHOL 161 mg/dL 06/10/2015 Lipid Ord30 HDL 49.0 mg/dl 06/10/2015 Lipid Ord30 TRIG 208 mg/dL 06/10/2015 Lipid Ord30 LDL 70 mg/dL 06/10/2015 Lipid Ord30 C/HDL 3.3 Ratio 06/10/2015 Pt Ncc0190 PT 25.0 seconds 04/09/2015 Pt Ybm1693 INR 2.4 04/09/2015 Pt Cxz1666 Low Intensity - 1.5-2.0 04/09/2015 Pt Pmc7858 Mod intensity - 2.0-3.0 04/09/2015 Pt Nku6175 Hi intensity - 3.0-4.0 04/09/2015 Free T4 Lcd755 FREE T4 1.05 ng/dL 01/22/2015 Pt Twj6530 PT 27.2 seconds 01/22/2015 Pt Afp0899 INR 2.6 01/22/2015 Pt Fko2697 Low Intensity - 1.5-2.0 01/22/2015 Pt Ejm5838 Mod intensity - 2.0-3.0 01/22/2015 Pt Kig1512 Hi intensity - 3.0-4.0 01/22/2015 Cbc With [...] Differential Ord2 RDW 15.2 % 01/22/2015 B12 Wml314 B12 402.00 pg/ml 01/22/2015 Tsh Ord6 hTSH II 0.65 uIU/mL 01/22/2015 Lipid Ord30 CHOL 166 mg/dL 01/22/2015 Lipid Ord30 HDL 48.0 mg/dl 01/22/2015 Lipid Ord30 TRIG 264 mg/dL 01/22/2015 Lipid Ord30 LDL 65 mg/dL 01/22/2015 Lipid Ord30 C/HDL 3.5 Ratio 01/22/2015 Comp Metabolic Eis160 NA 138 mEq/L 01/22/2015 Comp Metabolic Kks451 K 4.1 mEq/L 01/22/2015 Comp Metabolic Jam911 CL 104 mEq/L 01/22/2015 Comp Metabolic Ejg075 CO2 29.0 mEq/L 01/22/2015 Comp Metabolic Lge637 AN ION GAP 9 01/22/2015 Comp Metabolic Snp645 GL UCOSE 106 mg/dL 01/22/2015 Comp Metabolic Sfu348 Cr eat 0.9 mg/dL 01/22/2015 Comp Metabolic Ckl344 eG FR 63 ml/min/1.73m2 01/22 Comp Metabolic Rrv587 BUN 21 mg/dL 01/22/2015 Comp Metabolic Zyp259 B/ C Ratio 22.3 Ratio 01/22/2015 Comp Metabolic Rym749 CA LCIUM 9.4 mg/dL 01/22/2015 Comp Metabolic Lly521 AL K PHOS 83 U/L 01/22/2015 Comp Metabolic Dxa222 T(SGOT) 23 U/L 01/22/2015 Comp Metabolic Brb246 AL T(SGPT) 18 U/L 01/22/2015 Comp Metabolic Pwb922 BI LI T 0.8 mg/dL 01/22/2015 Comp Metabolic Voz640 AL BUMIN 4.2 g/dL 01/22/2015 Comp Metabolic Ofk531 TP RO 7.3 g/dL 01/22/2015 Comp Metabolic Csx594 GL OB 3.1 g/dL 01/22/2015 Comp Metabolic Dgw047 A/ G Ratio 1.4 Ratio 01/22/2015 Comp Metabolic Hgr953 Os mo 279 mOsmo 01/22/2015 Review of [...] Procedure Codes Date THER/PROPH/DIAG INJ SC/IM CPT-4: 45954 09/02/2018 TRIAMCINOLONE ACET I [place] NOS CPT-4: J3301 09/02/2018 URINALYSIS NONAUTO W /O SCOPE CPT-4: 23539 03/05/2017 Vital Signs Date Vital 09/02/2018 Blood Pressure 1: 128/72 Code: 8480-6 BMI: 38.2 Code: 61198-0 Heart Rate 1: 80 bpm Height: 5'1" SpO2: 98% Weight: 202 lbs 04/14/2018 Blood Pressure 1: 116/78 Code: 8480-6 BMI: 41.6 Code: 24139-2 Heart Rate 1: 72 bpm Height: 5'1" SpO2: 98% Weight: 220 lbs 01/18/2018 Blood Pressure 1: 132/74 Code: 8480-6 BMI: 43.5 Code: 88604-8 Heart Rate 1: 70 bpm Height: 5'1" SpO2: 97% Weight: 230 lbs 01/04/2018 Blood Pressure 1: 134/76 Code: 8480-6 BMI: 42.7 Code: 48944-4 Heart Rate 1: 83 bpm Height: 5'1" SpO2: 98% Weight: 226 lbs 09/23/2017 Blood Pressure 1: 124/76 Code: 8480-6 BMI: 42.3 Code: 62170-5 Heart Rate 1: 94 bpm Height: 5'1" SpO2: 96% Weight: 224 lbs 05/27/2017 Blood Pressure 1: 146/78 Code: 8480-6 BMI: 41.4 Code: 75059-4 Heart Rate 1: 85 bpm Height: 5'1" SpO2: 98% Weight: 219 lbs 02/24/2017 Blood Pressure 1: 138/66 Code: 8480-6 BMI: 41.4 Code: 00998-5 Heart Rate 1: 78 bpm Height: 5'1" SpO2: 97% Weight: 219 lbs 11/02/2016 Blood Pressure 1: 144/72 Code: 8480-6 BMI: 46.1 Code: 33320-3 Heart Rate 1: 78 bpm Height: 5'1" SpO2: 98% Weight: 244 lbs 09/30/2016 Blood Pressure 1: 130/76 Code: 8480-6 BMI: 45.0 Code: 70752-0 Heart Rate 1: 86 bpm Height: 5'1" SpO2: 98% Weight: 238 lbs 09/10/2016 Blood Pressure 1: 136/68 Code: 8480-6 BMI: 46.3 Code: 26653-4 Heart Rate 1: 83 bpm Height: 5'1" SpO2: 98% Weight: 245 lbs 08/20/2016 Blood Pressure 1: 142/78 Code: 8480-6 BMI: 45.3 Code: 03590-7 Heart Rate 1: 84 bpm Height: 5'1" SpO2: 99% Weight: 240 lbs 06/08/2016 Blood Pressure 1: 134/76 Code: 8480-6 BMI: 44.2 Code: 87608-2 Heart Rate 1: 86 bpm Height: 5'1" SpO2: 96% Weight: 234 lbs 04/02/2016 Blood Pressure 1: 142/70 Code: 8480-6 BMI: 44.6 Code: 95120-5 Heart Rate 1: 78 bpm Height: 5'1" SpO2: 97% Weight: 236 lbs 01/14/2016 Blood Pressure 1: 146/72 Code: 8480-6 BMI: 44.2 Code: 79943-0 Heart Rate 1: 86 bpm Height: 5'1" SpO2: 96% Weight: 234 lbs 10/02/2015 Blood Pressure 1: 158/76 Code: 8480-6 BMI: 44.2 Code: 25091-1 Heart Rate 1: 67 bpm Height: 5'1" SpO2: 97% Weight: 234 lbs 07/15/2015 Blood Pressure 1: 200/90 Code: 8480-6 Blood Pressure 1: 148/78 Code: 8480-6 BMI: 44.0 Code: 19322-7 Heart Rate 1: 89 bpm Height: 5'1" SpO2: 97% Weight: 233 lbs 06/10/2015 Blood Pressure 1: 140/82 Code: 8480-6 BMI: 44.0 Code: 74837-8 Heart Rate 1: 78 bpm Height: 5'1" [...] wearing crocs and there was a new [facility] on the floor: her foot didn't move [...] Encounters Encounter Performer Loca tion Codes Date [id number] EST. PATIENT, LEVEL IV Diagnosis: Other acute sinusitis[ICD10: J01.80] Diagnosis: Other allergic rhinitis[ICD10: J30.89] [facility] CPT-4: 49637 09/02/2018 [id number] EST. 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 P ATIENT, LEVEL III Diagnosis: Localized edema[ICD10: R60.0] Diagnosis: Gastro-esophageal reflux disease without esophagitis[ICD10: K21.9] Edna Almanza MD, [facility] CPT-4: 71811 01/18/2018 ([id number]) 15477 EST. P ATIENT, LEVEL IV Diagnosis: Gastro-esophageal reflux disease without esophagitis[ICD10: K21.9] Diagnosis: Localized edema[ICD10: R60.0] Diagnosis: Essential (primary) hypertension[ICD10: I10] Diagnosis: Hypothyroidism, unspecified[ICD10: E03.9] Diagnosis: Impaired fasting glucose[ICD10: R73.01] Edna Almanza MD, [facility] CPT-4: 14042 01/04/2018 ([id number]) 29545 EST. P ATIENT, LEVEL IV Diagnosis: Essential (primary) hypertension[ICD10: I10] Diagnosis: [facility] (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[ICD10: Z79.01] Diagnosis: Incisional hernia without obstruction or gangrene[ICD10: K43.2] Diagnosis: Right lower quadrant pain[ICD10: R10.31] Sarai Almazna MD, [facility] CPT-4: 08549 09/23/2017 ([id number]) 46738 EST. 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 PATIENT, LEVEL III Diagnosis: Pain in right hip[ICD10: M25.551] Nata Almanza MD, [facility] CPT-4: 93602 02/24/2017 ([id number]) 19125 EST. P ATIENT, LEVEL IV Diagnosis: Essential (primary) hypertension[ICD10: I10] Diagnosis: Localized edema[ICD10: R60.0] Diagnosis: Pain in right hip[ICD10: M25.551] Sarai Almanza MD, [facility] CPT-4: 31430 11/02/2016 ([id number]) 05458 EST. P ATIENT, LEVEL IV Diagnosis: Essential (primary) hypertension[ICD10: I10] Diagnosis: Localized edema[ICD10: R60.0] Sarai Almanza MD, [facility] CPT-4: 94713 09/30/2016 93135 EST. PATIENT, LEVEL IV Diagnosis: Localized edema[ICD10: R60.0] Diagnosis: Pain in joints of left hand[ICD10: M25.542] Diagnosis: Pain in joints of right hand[ICD10: M25.541] Nata Almanza MD, [facility] CPT-4: 35752 09/10/2016 67102 EST. PATIENT, LEVEL IV Diagnosis: Localized edema[ICD10: R60.0] Diagnosis: Pain in joints of left hand[ICD10: M25.542] Diagnosis: Pain in joints of right hand[ICD10: M25.541] Diagnosis: Other fatigue[ICD10: R53.83] Nata Almanza MD, [facility] CPT-4: 35402 08/20/2016 [id number] EST. PATIENT, LEVEL IV Diagnosis: Essential (primary) hypertension[ICD10: I10] Diagnosis: Other residential (current) drug therapy[ICD10: Z79.899] Diagnosis: Tinnitus, bilateral[ICD10: H93.13] Nata Almanza MD, [facility] CPT-4: 95421 06/08/2016 [id number] EST. PATIENT, LEVEL IV Diagnosis: Other allergic rhinitis[ICD10: J30.89] Diagnosis: Acute laryngopharyngitis[ICD10: J06.0] Nata Almanza MD, [facility] CPT-4: 03195 04/02/2016 [id number] EST. PATIENT, LEVEL IV Diagnosis: Left upper quadrant pain[ICD10: R10.12] Nata Almanza MD, [facility] CPT-4: 14618 01/14/2016 72135 EST. PATIENT, LEVEL IV Diagnosis: Pain in left shoulder[ICD10: M25.512] Diagnosis: Body mass index (BMI) 40.0-44.9, adult[ICD10: Z68.41] Nata Almanza MD, [facility] CPT-4: 05885 10/02/2015 80821 EST. PATIENT, LEVEL IV Diagnosis: Pain in left leg[ICD10: M79.605] Diagnosis: Other residential (current) drug therapy[ICD10: Z79.899] Nata Almanza MD, [facility] CPT-4: 53656 07/15/2015 ([id number]) 22967 EST. 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: Other residential (current) drug therapy[ICD10: Z79.899] Edna Almanza MD, [facility] CPT-4: 50743 06/10/2015 ([id number]) OFFICE VISI T, NEW - LEVEL 4 Diagnosis: ESSENTIAL HYPERTENSION[ICD9: 401.9] Diagnosis: HYPOTHYROIDISM[ICD9: 244.9] Diagnosis: ENCNTR LONG-RX USE NEC[ICD9: V58.69] Diagnosis: HYPERLIPIDEMIA[ICD9: 272.4] Diagnosis: Vitamin B12 deficiency[ICD9: 266.2] Diagnosis: Status post gastric surgery[ICD9: V45.89] Diagnosis: Snoring[ICD9: 786.09] Sarai Almanza MD, [facility] CPT-4: 08902 01/22/2015 Plan of Care Planned Activity Notes [...] allergy spray. 09/02/2018 Appointment: Nata Hsu WPtel: [facility][note 3]0 [facility] (15 min) Moderate 09/02/2018 Patient Education: Patient Medication Summary Completed 09/02/2018 Visit Plan: Hypertension - well con simraned - continue with current medications, continue with [...] Hgb A1C 04/14/2018 Appointment: Edna Douglas WPtel: [facility][note 3] [phone] (15 min) Moderate 04/14/2018 Patient Education: Patient [...] to further attempt to reduce peripheral edema. JLFB-vqqonxcg-avpjeyzw prilosec BID and carafate QID -discussed low spice, low acidic diet 01/18/2018 Appointment: Edna Douglas WPtel: [facility][note 3]5 [phone] (15 min) Moderate 01/18/2018 Patient Education: Patient [...] of control. 01/04/2018 Appointment: Edna Douglas WPtel: [address] [place], [place] [phone] (30 min) Complex 01/04/2018 Patient Education: Patient Medication Summary Completed 01/04/2018 Care Plan: SCREENINGMAMMOGRAPHYDIGITAL LOINC : 94335-8 Pending 01/04/2018 Visit Plan: Abdominal hernia - not able to be taken to surgery by local providers and pt has been seen at [facility] and that surgeon felt like Kat [...] home. 09/23/2017 App[facility]ment[phone] [facility] (15 min) Moderate 09/23/2017 Patient Education: [...] medications. 05/27/2017 [facility]ment[phone] (30 min) Complex 05/27/2017 Patient Education: Patient [...] Dr. Palacios. 02/24/2017 Appointment: [facility]su [phone] [facility] [place] (30 min) Complex 02/24/2017 Patient Education: [...] Chaney. 11/02/2016 Appointment: [phone] [facility] [place] (15 min) Moderate 11/02/2016 Patient Education: [...] peripheral edema. 09/30/2016 Appointment: [phone] [facility] [place] (15 min) Moderate 09/30/2016 Patient Education: [...] peripheral edema. 09/10/2016 Appointment: Nata Hsu WPtel: [address] [place] [address] (30 min) Complex 09/10/2016 Patient Education: Patient [...] peripheral edema. 08/20/2016 Appointment: Nata Hsu WPtel: [facility][note 3][address] (30 min) Complex 08/20/2016 Patient Education: Patient Medication Summary Completed 08/20/2016 Referral: Otf Lee [address] Referral Initiated 07/02/2016 Visit Plan: Chronic [...] 06/08/2016 Care Plan: Referral Order SNOMED-CT : [id number] Pending 06/08/2016 Visit Plan: URI - Pt [...] allergy spray. 04/02/2016 Appointment: [facility] Hsu [facility]el[phone] [facility] [place] (30 min) Complex 04/02/2016 Patient Education: [...] acute pain 01/14/2016 Appointment: Edna Douglas WPtel: [facility]note 3][phone] [place] (30 min) Complex 01/14/2016 Patient Education: Patient Medication Summary Completed 01/14/2016 Patient Education: Obesity Completed 01/14/2016 Care Plan: BMI Above normal followup DAVID F-MGMT EDUC & TRAIN 1 PT Pending 10/24/2015 Care Plan: X-RAY EXAM OF SHOULDER LOINC : 62868-0 Pending 10/24/2015 Visit Plan: Left shoulder pain [...] weight check. 10/02/2015 Appointment: Edna Douglas WPtel: [facility]note 3][phone] (15 min) Moderate 10/02/2015 Patient Education: Patient [...] ses Completed 06/10/2015 Appointment: Sarai Almanza WPtel: [address] [place], [place] [address] (15 min) Moderate 04/22/2015 Visit Plan: Hypertension [...] surgical fixation - planning occurring at [facility]. Snoring - Sleep apnea symptoms with difficulty [...] to medications. 01/22/2015 Appointment: Sarai Almanza WPtel: [address] [place], [place] [phone] [place] (S) New Patient 01/22/2015 Patient Education: Patient Medication Summary Completed 01/22/2015 Patient Education: Hypertension Completed 01/22/2015 Referral: Otf Lee [address] Referral Initiated Instructions Comment . Hypertension - wel l controlled - [...] to further attempt to reduce peripheral edema. YQAA-chxperzr-mjpqwoeu prilosec BID and carafate QID -discussed low [...] providers and pt has been seen at [facility] and that surgeon felt like Kat [...] now - Will refer to Dr. Rosa kaplan e the staff get you scheduled [...] surgical fixation - planning occurring at [facility]. Snoring - Sleep apnea symptoms with difficulty [...]
--- OUTSIDE RECORDS SUMMARY | 2020-01-16 22:49 | XMS REPORT | CCD ---
Author Author Kat Almanza Organization Sarai Almanza MD, [facility] Address [address] [place] [address] Phone Care Team Providers Care Manager Case Management Name Role Phone PP Unavailable CCM Unavailable Summary Purpose Interface Exchange Insurance Providers Payer name Policy type / Coverage type Covered green party ID Effective Begin Date Effective End Date WPS Medicare Part B Medicare Part B [id number] 2017 Unknown [employer] [place] Medicare Part B [id number] 2017 Unknown Family history Father Diagnosis Age At Onset Hyperlipidemia Unknown Heart Attack Unknown Mother Diagnosis Age At Onset Arthritis Unknown Social History Social History Element Codes Description Effective Dates Marital status Unknown M arried Nathan 09/30/2016 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 Number of children Unknown 3 01/22/[address]: 662634312 Never smoker 01/22/[address]: 539814519 Never drinks alcohol 01/22/2015 Allergies, Adverse Reactions, Alerts Substance Reaction Codes Entered Date Inactivated Date Status * NO KNOWN DRUG ORIN RGIES Unknown 01/22/2015 No Inactive Date Active Past Medical History Illness Codes Condition Status Onset Date Resolved Date Mixed hyperlipidemia ICD-9: 272.4 ICD-10: E78.2 Active 06/09/2015 Unknown Hypothyroidism, unsp ecified ICD-9: 244.9 ICD-10: E03.9 Active 05/27/2017 Unknown 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 ICD-9: V58.61 ICD-10: [...] 780.79 ICD-10: R53.83 Active 08/20/2016 Unknown Other detention (cur rent) drug therapy ICD-9: V58.69 ICD-10: [...] ecified ICD-9: 244.9 ICD-10: E03.9 05/27/2017 Active 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 ICD-9: V58.61 ICD-10: [...] ICD-9: 780.79 ICD-10: R53.83 08/20/2016 Active Other detention (cur rent) drug therapy ICD-9: V58.69 ICD-10: [...] Date Stop Date Sta tus Fill Instructions mupirocin 2 % topica l ointment RxNorm: 810371 1 Application TOP TID 12/08/2018 12/17/2018 Active mupirocin 2 % topica l ointment RxNorm: 629598 1 Application TOP TID 12/08/2018 12/07/2018 Inactive allopurinol 300 mg t ablet RxNorm: 215211 TAKE ONE TABLET BY MO UTH DAILY 11/22/2018 03/21/2019 Ac tive clonazepam 0.5 mg ta blet RxNorm: 680215 1 Tablet(s) PO BID 11/16/2018 04/14/2019 Active Carafate 1 gram tablet RxNorm: 761481 TAKE ONE TABLET BY MOUTH BEFORE MEALS AN D AT BEDTIME 11/15/2018 12/10/2018 Active atenolol 100 mg tablet RxNorm: 625748 TAKE ONE TABLET BY MOUTH DAILY 10/24/2018 05/21/2019 Ac tive potassium chloride E R 20 mEq tablet,extended release RxNorm: 926969 2 Tablet(s) PO daily 10/18/2018 02/14/2019 Active potassium chloride E R 20 mEq tablet,extended release RxNorm: 869813 1 Tablet(s) PO daily 10/03/2018 10/17/2018 Inactive Carafate 1 gram tablet RxNorm: 749911 TAKE ONE TABLET BY MOUTH BEFORE MEALS AN D AT BEDTIME 09/26/2018 11/14/2018 Inactive Plavix 75 mg tablet RxNorm: 681054 TAKE ONE TABLET BY MOUTH DAILY 09/02/2018 02/28/2019 Ac tive prednisone 10 mg tablet RxNorm: 376584 Tablet(s) PO 09/02/2018 No Stop Date Active 60,60,50,50,40,40,30,30,20,20,10,10 Synthroid 125 mcg ta blet RxNorm: 311615 1 Tablet(s) PO daily 09/02/2018 08/27/2019 Active potassium chloride E R 20 mEq tablet,extended release RxNorm: 778439 1 Tablet(s) PO daily 09/02/2018 09/01/2018 Inactive potassium chloride E R 20 mEq tablet,extended release RxNorm: 464853 1 Tablet(s) PO daily 09/02/2018 10/02/2018 Inactive Synthroid 125 mcg ta blet RxNorm: 944044 1 Tablet(s) PO daily 09/02/2018 09/01/2018 Inactive Keflex 500 mg capsule RxNorm: 181803 1 Capsule(s) PO TID 09/02/2018 09/08/2018 Inactive Kenalog 40 mg/mL maxine pension for injection RxNorm: 4076999 Milliliter(s) Inj 09/02/2018 09/02/2018 In active Lipitor 40 mg tablet RxNorm: 140256 TAKE ONE TABLET BY MOUTH DAILY 07/29/2018 07/23/2019 Ac tive Coumadin 1 mg tablet RxNorm: 853641 TAKE ONE TABLET BY MOUTH DAILY 07/29/2018 10/26/2018 In active Carafate 1 gram tablet RxNorm: 598133 TAKE ONE TABLET BY MOUTH BEFORE MEALS AN D AT BEDTIME 07/28/2018 09/17/2018 Inactive Coumadin 4 mg tablet RxNorm: 017340 2 Tablet(s) daily 07/11/2018 02/05/2019 Active Generi c For:COUMADIN 4MG 07/22/2017 8:58:26 AM Coumadin 5 mg tablet RxNorm: 189292 Tablet(s) TAKE 1 TABLET BY MOUTH DIRE CTED 07/08/2018 01/03/2019 Ac tive Generic For:COUMADIN 5MG TAB 03/21/2018 9:13:00 AM Coumadin 4 mg tablet RxNorm: 021275 Tablet(s) TAKE 1 TABLET BY MOUTH THREE T IMES PER WEEK (WEDNESDAY, WEDNESDAY AND WEDNESDAY) 07/08/2018 07/10/2018 Inactive Gene andre For:COUMADIN 4MG 07/22/2017 8:58:26 AM Coumadin 1 mg tablet RxNorm: 560156 1 Tablet(s) PO daily 07/08/2018 08/06/2018 Inactive venlafaxine ER 75 mg capsule,extended release 24 hr RxNorm: 053157 Capsule(s) TAKE 1 CAPSULE BY MOUTH ONCE DAILY 06/23/2018 06/17/2019 Active Generic For:*EFFEXOR XR 75MG 06/19/2017 12:23:45 PM sodium bicarbonate 6 50 mg tablet RxNorm: 176759 Tablet(s) TAKE 2 TABL ETS BY MOUTH TWICE DAILY 06/23/2018 12/19/2018 Active 12/20/2017 9:10:59 AM Coumadin 1 mg tablet RxNorm: 581410 1 Tablet(s) PO daily 06/17/2018 07/07/2018 Inactive Coumadin 1 mg tablet RxNorm: 591149 1 Tablet(s) PO daily 06/17/2018 06/16/2018 Inactive clonazepam 0.5 mg ta blet RxNorm: 530944 1 Tablet(s) PO BID 06/08/2018 11/03/2018 Inactive spironolactone 25 mg tablet RxNorm: 831373 TAKE 1 TABLET BY MOUT H EVERY DAY 05/18/2018 05/12/2019 Ac tive Generic For:*ALDACTONE 25MG 05/18/2018 8:57:50 AM Carafate 1 gram tablet RxNorm: 685864 TAKE ONE TABLET BY MOUTH BEFORE MEALS AN D AT BEDTIME 05/18/2018 07/12/2018 Inactive Generic For:CARAFATE 1GM 1 07/18/2017 8:38:28 AM Synthroid 137 mcg ta blet RxNorm: 886748 TAKE 1 TABLET BY MOUT H ONCE DAILY 05/18/2018 08/30/2018 In active Generic For:SYNTHROID 137MCG TAB 2017 8:57:54 AM allopurinol 300 mg t ablet RxNorm: 643127 TAKE 1 TABLET BY MOUT H ONCE DAILY. 04/18/2018 10/14/2018 In active Generic For:ZYLOPRIM 300 MG TABLET 03/22 9:13:47 AM Lasix 20 mg tablet RxNorm: 168719 TAKE ONE TABLET BY MOUTH DAILY 04/18/2018 08/15/2018 In active Generic For:LASIX 20MG 04/18/2018 9:13: 50 AM Carafate 1 gram tablet RxNorm: 191307 TAKE ONE TABLET BY MOUTH BEFORE MEALS AN D AT BEDTIME 04/18/2018 05/17/2018 Inactive Generic For:CARAFATE 1GM 1 9:32:51 AM Coumadin 5 mg tablet RxNorm: 903677 TAKE 1 TABLET BY MOUTH DIRECTED 03/21/2018 07/07/2018 In active Generic For:COUMADIN 5MG TAB 03/21/2018 9:13:00 AM Carafate 1 gram tablet RxNorm: 406334 TAKE ONE TABLET BY MOUTH BEFORE MEALS AN D AT BEDTIME 03/21/2018 04/17/2018 Inactive Generic For:CARAFATE 1GM 1 9:14:24 AM Carafate 1 gram tablet RxNorm: 790691 1 Tablet(s) PO AC & HS 02/17/2018 03/20/2018 Inactive atenolol 100 mg tablet RxNorm: 342003 1 Tablet(s) PO daily 02/04/2018 09/01/2018 Inactive atenolol 50 mg tablet RxNorm: 470747 1 Tablet(s) PO daily 02/03/2018 02/03/2018 Inactive omeprazole 20 mg cap sean,delayed release RxNorm: 163819 1 Capsule(s) BID 01/21/2018 01/15/2019 Ac tive Generic For:PRILOSEC 20MG 07/22/2017 8:5 8:20 AM Carafate 1 gram tablet RxNorm: 253035 1 Tablet(s) PO AC & HS 01/21/2018 02/16/2018 Inactive Carafate 1 gram tablet RxNorm: 884819 1 Tablet(s) PO AC & HS 01/18/2018 01/20/2018 Inactive Carafate 1 gram tablet RxNorm: 668649 1 Tablet(s) PO AC & HS 01/18/2018 02/27/2018 Inactive Carafate 1 gram tablet RxNorm: 995032 1 Tablet(s) PO AC & HS TAKE ONE TABLET B Y MOUTH TWICE DAILY 01/18/2018 05/17/2018 Inactive Generic For:CARAFATE 1GM 0 12/20/2017 9:10:56 AM omeprazole 20 mg cap sean,delayed release RxNorm: 453329 Capsule(s) TAKE 1 CAP SEAN BY MOUTH EVERY DAY 01/17/2018 01/20/2018 Inactive Generic For:PRILOSEC 20MG 0 07/22/2017 8:58:20 AM omeprazole 20 mg cap sean,delayed release RxNorm: 688514 Capsule(s) TAKE 1 CAP SEAN BY MOUTH EVERY DAY 01/14/2018 01/16/2018 Inactive Generic For:PRILOSEC 20MG 07/22/2017 8:58:20 AM clonazepam 0.5 mg ta blet RxNorm: 002137 1 Tablet(s) PO BID 01/07/2018 06/05/2018 Inactive Plavix 75 mg tablet RxNorm: 258492 1 Tablet(s) PO daily 01/07/2018 07/05/2018 Inactive Carafate 1 gram tablet RxNorm: 081579 1 Tablet(s) PO AC & HS 01/04/2018 01/17/2018 Inactive Lasix 20 mg tablet RxNorm: 971491 TAKE ONE TABLET BY MOUTH DAILY 12/20/2017 04/17/2018 In active Generic For:LASIX 20MG 12/20/2017 9:11: 03 AM sodium bicarbonate 6 50 mg tablet RxNorm: 916778 TAKE 2 TABLETS BY JAVON TH TWICE DAILY 12/20/2017 06/17/2018 In active 12/20/2017 9:10:59 AM Carafate 1 gram tablet RxNorm: 366643 TAKE ONE TABLET BY MOUTH TWICE DAILY 12/20/2017 01/17/2018 In active Generic For:CARAFATE 1GM 12/20/2017 9:1 0:56 AM Synthroid 137 mcg ta blet RxNorm: 997812 TAKE 1 TABLET BY MOUT H ONCE DAILY 11/19/2017 05/17/2018 In active Generic For:SYNTHROID 137MCG TAB 2017 8:58:04 AM Detrol LA 4 mg capsu le,extended release RxNorm: 884400 TAKE 1 CAPSULE BY JAVON TH ONCE DAILY 10/20/2017 04/13/2018 Inactive Generic For:DETROL LA 4MG C AP 10/20/2017 9:01:56 AM allopurinol 300 mg t ablet RxNorm: 813684 TAKE 1 TABLET BY MOUT H ONCE DAILY. 10/20/2017 04/17/2018 In active Generic For:ZYLOPRIM 300 MG TABLET 07/2017 9:01:59 AM Coumadin 5 mg tablet RxNorm: 118882 1 Tablet(s) PO UD 10/01/2017 03/20/2018 Inactive cyclobenzaprine 5 mg tablet RxNorm: 082460 1 Tablet(s) PO TID as needed myscle spasm 09/23/2017 10/12/2017 Inactive Lipitor 40 mg tablet RxNorm: 907932 TAKE 1 TABLET BY MOUTH ONCE DAILY 09/20/2017 07/28/2018 In active Generic For:LIPITOR 40MG 09/20/2017 8:5 6:04 AM atenolol 100 mg tablet RxNorm: 575459 1 Tablet(s) PO daily 08/30/2017 02/03/2018 Inactive atenolol 50 mg tablet RxNorm: 856204 1 Tablet(s) PO daily 08/30/2017 08/30/2017 Inactive Lovenox 30 mg/0.3 mL subcutaneous syringe RxNorm: 606132 0.3 Milliliter(s) SQ Q12H 08/24/2017 09/06/2017 In active Lasix 20 mg tablet RxNorm: 547392 TAKE ONE TABLET BY MOUTH DAILY 08/23/2017 12/19/2017 In active Generic For:LASIX 20MG 08/21/2017 9:04: 27 AM Synthroid 137 mcg ta blet RxNorm: 793249 TAKE 1 TABLET BY MOUT H ONCE DAILY 08/23/2017 11/18/2017 In active Generic For:SYNTHROID 137MCG TAB 2017 9:04:30 AM Lovenox 30 mg/0.3 mL subcutaneous syringe RxNorm: 009921 0.3 Milliliter(s) SQ Q12H 08/10/2017 08/23/2017 In active clonazepam 0.5 mg ta blet RxNorm: 670829 1 Tablet(s) PO BID 08/04/2017 12/30/2017 Inactive omeprazole 20 mg cap sean,delayed release RxNorm: 312592 TAKE 1 CAPSULE BY JAVON TH EVERY DAY 07/22/2017 01/13/2018 Inactive Generic For:PRILOSEC 20MG 07/22/2017 8: 58:20 AM Coumadin 4 mg tablet RxNorm: 423526 TAKE 1 TABLET BY MOUTH THREE TIMES PER W [place] (WEDNESDAY, WEDNESDAY AND WEDNESDAY) 07/22/2017 10/03/2018 Inactive Generic For:COUMADIN 4MG 07/22/2017 8:58:26 AM Coumadin 4 mg tablet RxNorm: 924787 TAKE 1 TABLET BY MOUTH THREE TIMES PER W [place] (WEDNESDAY, WEDNESDAY AND WEDNESDAY) 07/22/2017 02/16/2018 Inactive Generic For:COUMADIN 4MG 07/22/2017 8:58:26 AM sodium bicarbonate 6 50 mg tablet RxNorm: 294146 TAKE 2 TABLETS BY JAVON TH TWICE DAILY 06/22/2017 12/18/2017 In active 06/19/2017 12:23:30 PM venlafaxine ER 75 mg capsule,extended release 24 hr RxNorm: 034473 TAKE 1 CAPSULE BY MOUTH ONCE DAILY 06/22/2017 06/16/2018 Inactive Generic For:*EFFEXOR XR 75M G 06/19/2017 12:23:45 PM Coumadin 5 mg tablet RxNorm: 877639 1 Tablet(s) PO UD 06/01/2017 09/30/2017 Inactive Keflex 500 mg capsule RxNorm: 459611 1 Capsule(s) PO TID 05/27/2017 06/02/2017 Inactive Synthroid 137 mcg ta blet RxNorm: 631211 TAKE 1 TABLET BY MOUT H ONCE DAILY 05/24/2017 08/21/2017 In active Generic For:SYNTHROID 137MCG TAB 2016 8:55:59 AM Carafate 1 gram tablet RxNorm: 478161 TAKE ONE TABLET BY MOUTH TWICE DAILY 05/24/2017 12/19/2017 In active Generic For:CARAFATE 1GM 05/24/2017 8:5 5:54 AM spironolactone 25 mg tablet RxNorm: 109819 1 Tablet(s) PO daily 05/24/2017 05/17/2018 Inactive Detrol LA 4 mg capsu le,extended release RxNorm: 522206 1 Capsule(s) PO daily TAKE 1 CAPSULE BY MOUTH ONCE DAILY 05/10/2017 10/19/2017 Inactive Generic For:DETROL LA 4MG CAP 02/19/2017 2:36:00 PM Lasix 20 mg tablet RxNorm: 746451 TAKE ONE TABLET BY MOUTH DAILY 04/23/2017 08/20/2017 In active Generic For:LASIX 20MG 04/23/2017 9:04: 01 AM Coumadin 4 mg tablet RxNorm: 866872 TAKE 1 TABLET BY MOUTH THREE TIMES PER W [place] (WEDNESDAY, WEDNESDAY AND WEDNESDAY) 04/23/2017 07/21/2017 Inactive Generic For:COUMADIN 4MG 04/23/2017 9:04:05 AM allopurinol 300 mg t ablet RxNorm: 588388 TAKE 1 TABLET BY MOUT H ONCE DAILY. 04/23/2017 10/19/2017 In active Generic For:ZYLOPRIM 300 MG TABLET 08/2016 9:03:57 AM potassium chloride 2 0 mEq/15 mL oral liquid RxNorm: 141522 Milliliter(s) 30 Milliliter(s) (40mEq) PO daily 03/24/2017 07/21/2017 Inactive Lovenox 30 mg/0.3 mL subcutaneous syringe RxNorm: 740538 0.3 Milliliter(s) SQ Q12H 03/22/2017 03/26/2017 In active Lovenox 30 mg/0.3 mL subcutaneous syringe RxNorm: 329795 0.3 Milliliter(s) SQ Q12H 03/19/2017 03/20/2017 In active Lovenox 30 mg/0.3 mL subcutaneous syringe RxNorm: 336798 0.3 Milliliter(s) SQ Q12H 03/16/2017 03/18/2017 In active clonazepam 0.5 mg ta blet RxNorm: 943147 1 Tablet(s) PO BID 03/02/2017 10/03/2018 Inactive Lovenox 30 mg/0.3 mL subcutaneous syringe RxNorm: 793789 1 injection SQ BID do NOT take the night time dose the day before surgery, or the morning dose the day of surgery 03/01/2017 03/07/2017 Inactive Lovenox 30 mg/0.3 mL subcutaneous syringe RxNorm: 289961 1 injection SQ BID 03/01/2017 02/28/2017 In active Detrol LA 4 mg capsu le,extended release RxNorm: 203558 TAKE 1 CAPSULE BY JAVON TH ONCE DAILY 02/19/2017 05/09/2017 Inactive Generic For:DETROL LA 4MG C AP 02/19/2017 2:36:00 PM hydrocodone 5 mg-humberto taminophen 325 mg tablet RxNorm: 855840 1-2 Tablet(s) PO Q6 P RN 02/04/2017 No Stop Date Active Zetia 10 mg tablet RxNorm: 696029 TAKE 1 TABLET BY MOUTH DAILY 01/25/2017 04/13/2018 Inactive 01/23/2017 9:03:48 AM omeprazole 20 mg cap sean,delayed release RxNorm: 699591 TAKE 1 CAPSULE BY JAVON TH EVERY DAY 01/25/2017 07/21/2017 Inactive Generic For:PRILOSEC 20MG 01/23/2017 9: 03:45 AM Coumadin 4 mg tablet RxNorm: 949322 TAKE 1 TABLET BY MOUTH THREE TIMES PER [place] (WEDNESDAY, WEDNESDAY AND WEDNESDAY) 01/25/2017 04/22/2017 Inactive Generic For:COUMADIN 4MG 01/23/2017 9:03:51 AM sodium bicarbonate 6 50 mg tablet RxNorm: 081253 TAKE 2 TABLETS BY JAVON TH TWICE DAILY 12/24/2016 06/21/2017 In active 12/24/2016 9:09:27 AM Lasix 20 mg tablet RxNorm: 092018 1 Tablet(s) PO daily 12/24/2016 04/22/2017 Inactive Synthroid 137 mcg ta blet RxNorm: 955220 TAKE 1 TABLET BY MOUT H ONCE DAILY 11/24/2016 05/22/2017 In active Generic For:SYNTHROID 137MCG TAB 2016 9:04:37 AM Coumadin 4 mg tablet RxNorm: 067184 TAKE 1 TABLET BY MOUTH THREE TIMES PER W [place] (WEDNESDAY, WEDNESDAY AND WEDNESDAY) 11/24/2016 01/22/2017 Inactive Generic For:COUMADIN 4MG 11/24/2016 9:04:41 AM hydrocodone 5 mg-humberto taminophen 325 mg tablet RxNorm: 152088 1-2 Tablet(s) PO Q6 P RN 11/17/2016 02/03/2017 In active Carafate 1 gram tablet RxNorm: 118190 TAKE ONE TABLET BY MOUTH TWICE DAILY 10/27/2016 05/23/2017 In active Generic For:CARAFATE 1GM 10/26/2016 8:3 9:42 AM allopurinol 300 mg t ablet RxNorm: 338605 Tablet(s) TAKE 1 TABL ET BY MOUTH ONCE DAILY. 10/26/2016 04/22/2017 Inactive Lipitor 40 mg tablet RxNorm: 835315 1 Tablet(s) PO daily 09/25/2016 09/19/2017 Inactive Coumadin 4 mg tablet RxNorm: 840801 TAKE 1 TABLET BY MOUTH THREE TIMES PER W [place] (WEDNESDAY, WEDNESDAY AND WEDNESDAY) 09/25/2016 11/23/2016 Inactive Generic For:COUMADIN 4MG 09/25/2016 8:55:58 AM Zetia 10 mg tablet RxNorm: 379788 1 Tablet(s) PO daily 09/25/2016 01/22/2017 Inactive gave 1 month of samples clonazepam 0.5 mg ta blet RxNorm: 133078 1 Tablet(s) PO BID 09/21/2016 10/03/2018 Inactive Lasix 20 mg tablet RxNorm: 155005 1 Tablet(s) PO daily 09/15/2016 12/23/2016 Inactive potassium chloride 2 0 mEq/15 mL oral liquid RxNorm: 486395 Milliliter(s) 30 Milliliter(s) (40mEq) PO daily 09/15/2016 01/12/2017 Inactive Lasix 20 mg tablet RxNorm: 344796 2 Tablet(s) PO daily 09/10/2016 09/12/2016 Inactive Lasix 20 mg tablet RxNorm: 369930 1 Tablet(s) PO daily 08/28/2016 08/30/2016 Inactive Lasix 20 mg tablet RxNorm: 881626 1 Tablet(s) PO daily 08/20/2016 08/22/2016 Inactive Detrol LA 4 mg capsu le,extended release RxNorm: 162804 TAKE 1 CAPSULE BY JAVON TH ONCE DAILY 07/27/2016 02/18/2017 Inactive Generic For:DETROL LA 4MG C AP 07/27/2016 9:08:27 AM Coumadin 4 mg tablet RxNorm: 514076 1 Tablet(s) PO 3 x week wed th and sun 07/27/2016 09/24/2016 In active omeprazole 20 mg cap sean,delayed release RxNorm: 574666 Capsule(s) PO TAKE 1 CAPSULE BY MOUTH ONCE DAILY 07/27/2016 01/22/2017 Inactive venlafaxine ER 75 mg capsule,extended release 24 hr RxNorm: 288783 1 Capsule(s) PO daily 06/29/2016 06/21/2017 Inactive sodium bicarbonate 6 50 mg tablet RxNorm: 650020 TAKE 2 TABLETS BY JAVON TH TWICE DAILY 06/29/2016 12/23/2016 In active 06/27/2016 9:05:39 AM Coumadin 4 mg tablet RxNorm: 356140 1 Tablet(s) PO 3 x week e and sun 06/09/2016 06/08/2016 In active Coumadin 4 mg tablet RxNorm: 989552 1 Tablet(s) PO 3 x week tue thur and sun 06/09/2016 07/26/2016 In active Zetia 10 mg tablet RxNorm: 629759 1 Tablet(s) PO daily 06/09/2016 06/08/2016 Inactive gave 1 month of samples Zetia 10 mg tablet RxNorm: 473411 1 Tablet(s) PO daily 06/09/2016 09/24/2016 Inactive gave 1 month of samples Effexor 75 mg tablet RxNorm: 612982 1 Tablet(s) PO daily 06/08/2016 06/28/2016 Inactive spironolactone 25 mg tablet RxNorm: 374436 1 Tablet(s) PO daily 06/08/2016 05/23/2017 Inactive Synthroid 137 mcg ta blet RxNorm: 527885 1 Tablet(s) PO daily 05/07/2016 11/02/2016 Inactive allopurinol 300 mg t ablet RxNorm: 539641 Tablet(s) TAKE 1 TABL ET BY MOUTH ONCE DAILY. 04/28/2016 10/24/2016 Inactive clonazepam 0.5 mg ta blet RxNorm: 769276 1 Tablet(s) PO BID 04/20/2016 10/03/2018 Inactive Flonase Allergy Reli ef 50 mcg/actuation nasal spray,suspension RxNorm: 0485874 1 [place] NASAL BID 04/02/2016 No Stop Date Active Zithromax Z-Thomas 250 mg tablet RxNorm: 835238 Tablet(s) PO 04/02/2016 08/27/2016 Inactive cetirizine 10 mg tablet RxNorm: 7810231 1 Tablet(s) PO daily 04/02/2016 05/01/2016 Inactive Carafate 1 gram tablet RxNorm: 915728 Tablet(s) TAKE 1 TABLET TWICE A DAY FOR 30 DAYS 03/30/2016 10/25/2016 Inactive Generic For:CARAFATE 1GM 02/08/2015 12:3 6:39 PM Plavix 75 mg tablet RxNorm: 243772 1 Tablet(s) PO daily 03/11/2016 09/06/2016 Inactive sodium bicarbonate 6 50 mg tablet RxNorm: 386179 Tablet(s) 2 Tablet(s) PO BID 02/28/2016 06/26/2016 In active omeprazole 20 mg cap sean,delayed release RxNorm: 326757 Capsule(s) PO TAKE 1 CAPSULE BY MOUTH ONCE DAILY 01/31/2016 07/26/2016 Inactive Fish Oil 1,000 mg ca psule RxNorm: 1 Capsule(s) PO BID 01/14/2016 No Stop Date Active Synthroid 137 mcg ta blet RxNorm: 062164 1 Tablet(s) PO daily 01/14/2016 05/06/2016 Inactive Detrol LA 4 mg capsu le,extended release RxNorm: 888759 TAKE 1 CAPSULE BY JAVON TH ONCE DAILY 12/30/2015 07/26/2016 Inactive Generic For:DETROL LA 4MG C AP 12/30/2015 9:11:01 AM potassium chloride 2 0 mEq/15 mL oral liquid RxNorm: 148278 Milliliter(s) 30 Milliliter(s) (40mEq) PO daily 12/02/2015 03/30/2016 Inactive sodium bicarbonate 6 50 mg tablet RxNorm: 481016 Tablet(s) 2 Tablet(s) PO BID 10/31/2015 02/27/2016 In active Lipitor 40 mg tablet RxNorm: 244409 1 Tablet(s) PO daily 10/09/2015 09/24/2016 Inactive sodium bicarbonate 6 50 mg tablet RxNorm: 704642 2 Tablet(s) PO BID 10/01/2015 10/30/2015 Inactive allopurinol 300 mg t ablet RxNorm: 441626 TAKE 1 TABLET BY MOUT H ONCE DAILY. 10/01/2015 04/27/2016 In active Generic For:ZYLOPRIM 300 MG TABLET 09/19 9:21:15 AM clonazepam 0.5 mg ta blet RxNorm: 407507 1 Tablet(s) PO BID 09/30/2015 04/19/2016 Inactive Coumadin 5 mg tablet RxNorm: 317566 1 Tablet(s) PO daily 09/27/2015 05/31/2017 Inactive Generic For:COUMADIN 5MG TAB N O T I C E PRESCRIPTION PREVIOUSLY AUTHORIZED BY DOCTOR:BOBBY ZULETA Synthroid 125 mcg ta blet RxNorm: 587489 1 Tablet(s) PO daily 09/27/2015 09/26/2015 Inactive Synthroid 125 mcg ta blet RxNorm: 738948 1 Tablet(s) PO daily 09/27/2015 01/13/2016 Inactive Carafate 1 gram tablet RxNorm: 601320 Tablet(s) TAKE 1 TABLET TWICE A DAY FOR 30 DAYS 09/02/2015 03/29/2016 Inactive Generic For:CARAFATE 1GM 02/08/2015 12:3 6:39 PM sodium bicarbonate 6 50 mg tablet RxNorm: 661798 2 Tablet(s) PO BID 09/02/2015 09/30/2015 Inactive Prilosec 20 mg capsu le,delayed release RxNorm: 405668 TAKE 1 CAPSULE BY JAVON TH ONCE DAILY 08/02/2015 01/28/2016 Inactive Generic For:PRILOSEC 20MG 08/02/2015 10:03:09 AM N O T I C E PRESCRIPTION PREVIOUSLY AUTHORIZED BY DOCTOR:BOBBY ZULETA Zyrtec 10 mg capsule RxNorm: 7757174 1 Capsule(s) PO daily 07/15/2015 08/13/2015 Inactive Keflex 500 mg capsule RxNorm: 744375 1 Capsule(s) PO TID 07/15/2015 07/21/2015 Inactive cetirizine 10 mg cap sean RxNorm: 2939575 1 Capsule(s) PO daily 07/15/2015 08/13/2015 Inactive hydrocodone 5 mg-humberto taminophen 325 mg tablet RxNorm: 842882 1-2 Tablet(s) PO Q6 P RN 06/10/2015 11/16/2016 In active sodium bicarbonate 6 50 mg tablet RxNorm: 321622 2 Tablet(s) PO BID 06/03/2015 08/31/2015 Inactive Detrol LA 4 mg capsu le,extended release RxNorm: 760289 TAKE 1 CAPSULE BY JAVON TH ONCE DAILY 06/03/2015 12/29/2015 Inactive Generic For:DETROL LA 4MG C AP N O T I C E PRESCRIPTION PREVIOUSLY AUTHORIZED BY DOCTOR:BOBBY ZULETA atenolol 50 mg tablet RxNorm: 903212 1 Tablet(s) PO daily TAKE 1 TABLET BY MO UTH DAILY 05/07/2015 08/23/2017 Inactive Generic For:TENORMIN 50MG 05/04/2015 9:07:22 AM spironolactone 25 mg tablet RxNorm: 168487 1 Tablet(s) PO daily 05/06/2015 06/07/2016 Inactive venlafaxine ER 75 mg capsule,extended release 24 hr RxNorm: 440331 1 Capsule(s) PO daily 05/04/2015 06/28/2016 Inactive atenolol 50 mg tablet RxNorm: 001244 TAKE 1 TABLET BY MOUTH DAILY 05/04/2015 05/06/2015 Inactive Generic For:TENORMIN 50MG 05/04/2015 9: 07:22 AM Synthroid 150 mcg ta blet RxNorm: 036312 TAKE 1 TABLET BY MOUT H ONCE DAILY. 04/05/2015 09/26/2015 In active Generic For:SYNTHROID 150MCG TAB 2014 4:45:40 PM N O T I C E PRESCRIPTION PREVIOUSLY AUTHORIZED BY DOCTOR:BOBBY ZULETA Effexor 75 mg tablet RxNorm: 469307 1 Tablet(s) PO daily 04/05/2015 07/03/2015 Inactive Coumadin 5 mg tablet RxNorm: 082048 TAKE 1 AND 1/2 TABLETS BY MOUTH ONCE MYRANDA LY 04/04/2015 09/26/2015 In active Generic For:COUMADIN 5MG TAB N O T I C E PRESCRIPTION PREVIOUSLY AUTHORIZED BY DOCTOR:BOBBY ZULETA clonazepam 0.5 mg ta blet RxNorm: 362725 1 Tablet(s) PO BID 03/13/2015 11/05/2015 Inactive sodium bicarbonate 6 50 mg tablet RxNorm: 955672 2 Tablet(s) PO BID 03/08/2015 06/02/2015 Inactive allopurinol 300 mg t ablet RxNorm: 134697 TAKE 1 TABLET BY MOUT H ONCE DAILY. 03/05/2015 09/30/2015 In active N O T I C E PRESCRIPTION PREVIOUSLY A UTHORIZED BY DOCTOR:BOBBY ZULETA Plavix 75 mg tablet RxNorm: 102880 1 Tablet(s) PO daily 02/12/2015 09/09/2015 Inactive clonazepam 0.5 mg ta blet RxNorm: 377657 1 Tablet(s) PO BID 02/11/2015 03/11/2015 Inactive Carafate 1 gram tablet RxNorm: 273993 TAKE 1 TABLET TWICE A DAY FOR 30 DAYS 02/08/2015 02/07/2015 In active Generic For:CARAFATE 1GM 02/08/2015 12:3 6:39 PM Carafate 1 gram tablet RxNorm: 986268 Tablet(s) TAKE 1 TABLET TWICE A DAY FOR 30 DAYS 02/08/2015 09/01/2015 Inactive Generic For:CARAFATE 1GM 02/08/2015 12:3 6:39 PM potassium chloride 2 0 mEq/15 mL oral liquid RxNorm: 755825 30 Milliliter(s) (40m Eq) PO daily 02/05/2015 12/01/2015 Inactive atenolol 50 mg tablet RxNorm: 900727 1 Tablet(s) PO daily 02/04/2015 05/03/2015 Inactive [SAVINGS FOR NON-COVERED DRUGS -- BIN:3584, PCN: [email or web address], Group: XXXXX, ID# [id number], Questions: . THIS IS NOT INSURANCE.] potassium chloride 2 0 mEq/15 mL oral liquid RxNorm: 021182 30 Milliliter(s) (40m Eq) PO daily 01/08/2015 02/04/2015 Inactive potassium chloride 2 0 mEq/15 mL oral liquid RxNorm: 476774 30 Milliliter(s) (40m Eq) PO daily 12/07/2014 01/07/2015 Inactive atenolol 50 mg tablet RxNorm: 295348 1 Tablet(s) PO daily 11/09/2014 11/08/2014 Inactive atenolol 50 mg tablet RxNorm: 935279 1 Tablet(s) PO daily 11/09/2014 02/03/2015 Inactive [SAVINGS FOR NON-COVERED DRUGS -- BIN:00 3585, PCN: [email or web address], Group: XXXXX, ID# [id number], Questions: . THIS IS NOT INSURANCE.] Voltaren 1 % topical gel RxNorm: 080438 TOP No St art Date Active verapamil ER (HS) 24 0 mg tablet,extended release 24 hr RxNorm: 569014 1 Tablet(s) PO daily No Start Date Active aspirin 81 mg tablet RxNorm: 980859 1 Tablet(s) PO daily No Start Date Active Zofran 4 mg tablet RxNorm: 585297 1 Tablet(s) PO PRN No Start Date Active B12 1000 mcg RxNorm: 1 Tablet(s) PO daily No Start Date Active magnesium oxide 400 mg capsule RxNorm: 925734 2 Capsule(s) PO BID No Start Date Active Synthroid 150 mcg ta blet RxNorm: 178713 1 Tablet(s) PO daily No Start Date 04/04/2015 Inactive Coumadin 5 mg tablet RxNorm: 423566 1 Tablet(s) PO daily No Start Date 04/03/2015 Inactive cranberry 1,000 mg c apsule RxNorm: 614928 1 Capsule(s) PO daily No Start Date 04/13/2018 Inactive allopurinol 300 mg t ablet RxNorm: 831182 1 Tablet(s) PO daily No Start Date 03/04/2015 Inactive Prilosec 20 mg capsu le,delayed release RxNorm: 973773 1 Capsule(s) PO PRN No Start Date 08/01/2015 Inactive potassium chloride 2 0 mEq/15 mL oral liquid RxNorm: 677377 30 Milliliter(s) (40m Eq) PO daily No Start Date 12/06/2014 Inactive atenolol 50 mg tablet RxNorm: 496141 1 Tablet(s) PO daily No Start Date 08/29/2017 Inactive Lipitor 40 mg tablet RxNorm: 577503 1 Tablet(s) PO daily No Start Date 09/19/2017 Inactive Effexor 75 mg tablet RxNorm: 867742 1 Tablet(s) PO daily No Start Date 04/04/2015 Inactive Carafate 1 gram tablet RxNorm: 886647 1 Tablet(s) PO BID No Start Date 02/07/2015 Inactive clonazepam 0.5 mg ta blet RxNorm: 020645 1 Tablet(s) PO BID No Start Date 02/10/2015 Inactive Plavix 75 mg tablet RxNorm: 503246 1 Tablet(s) PO daily No Start Date 02/11/2015 Inactive sodium bicarbonate 6 50 mg tablet RxNorm: 246987 2 Tablet(s) PO BID No Start Date 09/01/2015 Inactive Lovenox 30 mg/0.3 mL subcutaneous syringe RxNorm: 417746 0.3 Milliliter(s) SQ Q12H No Start Date 03/15/2017 Inactive Fish Oil 1,000 mg ca psule RxNorm: 1 Capsule(s) PO daily No Start Date 01/13/2016 Inactive Detrol LA 4 mg capsu le,extended release RxNorm: 176641 1 Capsule(s) PO daily No Start Date 06/02/2015 Inactive Medication Administered Medication Codes Instruc tions Start Date Status Kenalog 40 mg/mL suspension for injection RxNorm: 8917057 Milliliter 09/02/2018 No longer Active Immunizations Vaccine Codes Date Status SHINGARIX CVX: 121 03/23 completed Assessments Condition Codes Effectiv e Dates Mixed hyperlipidemia ICD-10: E78.2 ICD-9: 272.4 10/05/2018 Other acute sinusitis ICD-10: J01.80 ICD-9: 461.8 09/02/2018 Other allergic rhinitis ICD-10: J30. 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 ICD-10: Z79.01 ICD-9: [...] fatigue ICD-10: R53.83 ICD-9: 780.79 08/20/2016 Other detention (current) drug therapy ICD-10: Z79.899 ICD-9: V58.69 [...] Code Item Item Code Result Date Pt Wjn4979 PT 24.4 seconds 12/09/2018 Pt Wgv6800 INR 2.2 12/09/2018 Pt Suw2719 Low Intensity - 1.5-2.0 12/09/2018 Pt Hbb9433 Mod intensity - 2.0-3.0 12/09/2018 Pt Xdh6741 Hi intensity - 3.0-4.0 12/09/2018 Pt Hin3952 PT 35.0 seconds 12/01/2018 Pt Uef5538 INR 3.5 12/01/2018 Pt Apu3594 Low Intensity - 1.5-2.0 12/01/2018 Pt Wmu3170 Mod intensity - 2.0-3.0 12/01/2018 Pt Gay8419 Hi intensity - 3.0-4.0 12/01/2018 Pt Fnv8444 PT 26.3 seconds 10/13/2018 Pt Cfl9870 INR 2.5 10/13/2018 Pt Euh1690 Low Intensity - 1.5-2.0 10/13/2018 Pt Ayx4380 Mod intensity - 2.0-3.0 10/13/2018 Pt Nxd8129 Hi intensity - 3.0-4.0 10/13/2018 Lipid Ord30 CHOL 180 mg/dL 10/07/2018 Lipid Ord30 HDL 74.0 mg/dl 10/07/2018 Lipid Ord30 TRIG 111 mg/dL 10/07/2018 Lipid Ord30 LDL 84 mg/dL 10/07/2018 Lipid Ord30 C/HDL 2.4 Ratio 10/07/2018 Pt Qos9295 PT 38.1 seconds 10/07/2018 Pt Zll9378 INR 3.9 10/07/2018 Pt Krz1916 Low Intensity - 1.5-2.0 10/07/2018 Pt Bql9524 Mod intensity - 2.0-3.0 10/07/2018 Pt Dxq8878 Hi intensity - 3.0-4.0 10/07/2018 Tsh Ord6 TSH (3rd IS) 0.43 uIU/mL 09/02/2018 Comp Metabolic Xtr065 NA 136 mEq/L 09/02/2018 Comp Metabolic Cmt903 K 4.1 mEq/L 09/02/2018 Comp Metabolic Php110 CL 103 mEq/L 09/02/2018 Comp Metabolic Dlk803 CO2 20.0 mEq/L 09/02/2018 Comp Metabolic Uui104 AN ION GAP 17 09/02/2018 Comp Metabolic Odu395 GL UCOSE 124 mg/dL 09/02/2018 Comp Metabolic Xnq594 Cr eat 1.0 mg/dL 09/02/2018 Comp Metabolic Nqz306 eG FR 57 ml/min/1.73m2 09/02 Comp Metabolic Ord290 BUN 24 mg/dL 09/02/2018 Comp Metabolic Tsy017 B/ C Ratio 23.8 Ratio 09/02/2018 Comp Metabolic Bhw767 CA LCIUM 9.5 mg/dL 09/02/2018 Comp Metabolic Umr779 AL K PHOS 64 U/L 09/02/2018 Comp Metabolic Jfe243 T(SGOT) 24 U/L 09/02/2018 Comp Metabolic Rlc699 AL T(SGPT) 23 U/L 09/02/2018 Comp Metabolic Bnr858 BI LI T 0.5 mg/dL 09/02/2018 Comp Metabolic Squ640 AL BUMIN 4.2 g/dL 09/02/2018 Comp Metabolic Pcd758 TP RO 7.4 g/dL 09/02/2018 Comp Metabolic Rkj822 GL OB 3.2 g/dL 09/02/2018 Comp Metabolic Awi761 A/ G Ratio 1.3 Ratio 09/02/2018 Comp Metabolic Zdd454 Os mo 277 mOsmo 09/02/2018 Pt Ruo2047 PT 40.6 seconds 09/02/2018 Pt Xiy6643 INR 4.2 09/02/2018 Pt Gmt4096 Low Intensity - 1.5-2.0 09/02/2018 Pt Vol2325 Mod intensity - 2.0-3.0 09/02/2018 Pt Exw0695 Hi intensity - 3.0-4.0 09/02/2018 Free T4 Kfo853 FREE T4 1.51 ng/dL 09/02/2018 Magnesium Ord90 Mag 1.8 mg/dL 09/02/2018 Pt Xpw5917 PT 29.2 seconds 08/05/2018 Pt Crg1865 INR 2.8 08/05/2018 Pt Wjd8308 Low Intensity - 1.5-2.0 08/05/2018 Pt Yaq2653 Mod intensity - 2.0-3.0 08/05/2018 Pt Uvd4155 Hi intensity - 3.0-4.0 08/05/2018 Pt Wwx4775 PT 30.2 seconds 07/25/2018 Pt Wsx8884 INR 2.9 07/25/2018 Pt Mtx1026 Low Intensity - 1.5-2.0 07/25/2018 Pt Ziq1567 Mod intensity - 2.0-3.0 07/25/2018 Pt Gui7050 Hi intensity - 3.0-4.0 07/25/2018 Pt Kah3671 PT 25.2 seconds 07/19/2018 Pt Mzh8117 INR 2.3 07/19/2018 Pt Jdz2648 Low Intensity - 1.5-2.0 07/19/2018 Pt Uji6359 Mod intensity - 2.0-3.0 07/19/2018 Pt Qbg0777 Hi intensity - 3.0-4.0 07/19/2018 Pt Bfa9567 PT 17.4 seconds 07/15/2018 Pt Ufd7913 INR 1.5 07/15/2018 Pt Djr1769 Low Intensity - 1.5-2.0 07/15/2018 Pt Aba6010 Mod intensity - 2.0-3.0 07/15/2018 Pt Xxv6413 Hi intensity - 3.0-4.0 07/15/2018 Pt Gdq7763 PT 17.8 seconds 07/08/2018 Pt Ggx7450 INR 1.5 07/08/2018 Pt Emq3457 Low Intensity - 1.5-2.0 07/08/2018 Pt Kco4814 Mod intensity - 2.0-3.0 07/08/2018 Pt Muf1634 Hi intensity - 3.0-4.0 07/08/2018 Pt Jko0843 PT 19.2 seconds 07/01/2018 Pt Ltm6265 INR 1.7 07/01/2018 Pt Reb9358 Low Intensity - 1.5-2.0 07/01/2018 Pt Lph7982 Mod intensity - 2.0-3.0 07/01/2018 Pt Eax2155 Hi intensity - 3.0-4.0 07/01/2018 Pt Acl0531 PT 17.4 seconds 06/23/2018 Pt Abg3802 INR 1.5 06/23/2018 Pt Mdf6713 Low Intensity - 1.5-2.0 06/23/2018 Pt Vmb4430 Mod intensity - 2.0-3.0 06/23/2018 Pt Sga3252 Hi intensity - 3.0-4.0 06/23/2018 Pt Reg3169 PT 18.4 seconds 06/17/2018 Pt Wlg4608 INR 1.6 06/17/2018 Pt Clw8965 Low Intensity - 1.5-2.0 06/17/2018 Pt Ujh6481 Mod intensity - 2.0-3.0 06/17/2018 Pt Gxp8980 Hi intensity - 3.0-4.0 06/17/2018 Sed Rate [...] 30.4 pg 06/08/2018 Cbc With Differential Ord2 [place]% 9.4 % 06/08/2018 Cbc With Differential Ord2 [...] 1.20 K/ul 06/08/2018 Cbc With Differential Ord2 [place] ABS# 0.5 K/ul 06/08/2018 Cbc With Differential Ord2 Eos ABS# 0.1 K/ul 06/08/2018 Cbc With Differential Ord2 Baso ABS# 0.1 K/ul 06/08/2018 C-Reactive Protein Qnt Crqnt CRP 0.1 mg/dl 06/08/2018 Pt Hww5826 PT 17.6 seconds 06/08/2018 Pt Ymo2879 INR 1.5 06/08/2018 Pt Jtr3641 Low Intensity - 1.5-2.0 06/08/2018 Pt Hzy7164 Mod intensity - 2.0-3.0 06/08/2018 Pt Yrq3118 Hi intensity - 3.0-4.0 06/08/2018 Pt Upl1767 PT 16.8 seconds 05/10/2018 Pt Mcn4523 INR 1.4 05/10/2018 Pt Jcp4190 Low Intensity - 1.5-2.0 05/10/2018 Pt Khp5261 Mod intensity - 2.0-3.0 05/10/2018 Pt Cmx7368 Hi intensity - 3.0-4.0 05/10/2018 Pt Sza8004 PT 16.7 seconds 05/04/2018 Pt Euv4973 INR 1.4 05/04/2018 Pt Tjt1108 Low Intensity - 1.5-2.0 05/04/2018 Pt Pzv4492 Mod intensity - 2.0-3.0 05/04/2018 Pt Qev8994 Hi intensity - 3.0-4.0 05/04/2018 Free T4 Kof454 FREE T4 1.09 ng/dL 04/14/2018 Tsh Ord6 TSH (3rd IS) 2.36 uIU/mL 04/14/2018 Pt Tgo5068 PT 20.3 seconds 04/14/2018 Pt Yue2443 INR 1.8 04/14/2018 Pt Pdp4552 Low Intensity - 1.5-2.0 04/14/2018 Pt Yhm0668 Mod intensity - 2.0-3.0 04/14/2018 Pt Lgg8782 Hi intensity - 3.0-4.0 04/14/2018 Lipid Ord30 CHOL 149 mg/dL 04/14/2018 Lipid Ord30 HDL 49.0 mg/dl 04/14/2018 Lipid Ord30 TRIG 161 mg/dL 04/14/2018 Lipid Ord30 LDL 68 mg/dL 04/14/2018 Lipid Ord30 C/HDL 3.0 Ratio 04/14/2018 %Hba1C Jli758 % HbA1c 41945-2 5.9 % 04/14/2018 %Hba1C Ckj386 Gluc Ave 123 mg/dL 04/14/2018 Comp Metabolic Wpz869 NA 140 mEq/L 04/14/2018 Comp Metabolic Tma389 K 4.1 mEq/L 04/14/2018 Comp Metabolic Fsi677 CL 105 mEq/L 04/14/2018 Comp Metabolic Fbx759 CO2 28.0 mEq/L 04/14/2018 Comp Metabolic Het663 AN ION GAP 11 04/14/2018 Comp Metabolic Hej080 GL UCOSE 112 mg/dL 04/14/2018 Comp Metabolic Tor334 Cr eat 1.0 mg/dL 04/14/2018 Comp Metabolic Jfj478 eG FR 58 ml/min/1.73m2 04/14 Comp Metabolic Ouy373 BUN 20 mg/dL 04/14/2018 Comp Metabolic Ijf715 B/ C Ratio 20.2 Ratio 04/14/2018 Comp Metabolic Ixp636 CA LCIUM 10.0 mg/dL 04/14/2018 Comp Metabolic Cxh861 AL K PHOS 51 U/L 04/14/2018 Comp Metabolic Gvz994 T(SGOT) 24 U/L 04/14/2018 Comp Metabolic Fhs025 AL T(SGPT) 21 U/L 04/14/2018 Comp Metabolic Cgv911 BI LI T 0.8 mg/dL 04/14/2018 Comp Metabolic Cbd127 AL BUMIN 4.2 g/dL 04/14/2018 Comp Metabolic Cks506 TP RO 7.1 g/dL 04/14/2018 Comp Metabolic Fep312 GL OB 2.9 g/dL 04/14/2018 Comp Metabolic Aaf881 A/ G Ratio 1.5 Ratio 04/14/2018 Comp Metabolic Gyr544 Os mo 283 mOsmo 04/14/2018 Cbc With [...] 30.7 pg 04/14/2018 Cbc With Differential Ord2 [place]% 10.6 % 04/14/2018 Cbc With Differential Ord2 [...] 1.18 K/ul 04/14/2018 Cbc With Differential Ord2 [place] ABS# 0.5 K/ul 04/14/2018 Cbc With Differential Ord2 Eos ABS# 0.2 K/ul 04/14/2018 Cbc With Differential Ord2 Baso ABS# 0.1 K/ul 04/14/2018 Pt Qmh4976 PT 29.3 seconds 02/11/2018 Pt Klt1010 INR 2.8 02/11/2018 Pt Sua2913 Low Intensity - 1.5-2.0 02/11/2018 Pt Rfg9526 Mod intensity - 2.0-3.0 02/11/2018 Pt Fkr6542 Hi intensity - 3.0-4.0 02/11/2018 Comp Metabolic Ogd424 NA 141 mEq/L 01/05/2018 Comp Metabolic Wzv557 K 3.7 mEq/L 01/05/2018 Comp Metabolic Vxg591 CL 102 mEq/L 01/05/2018 Comp Metabolic Foy566 CO2 29.0 mEq/L 01/05/2018 Comp Metabolic Vot009 AN ION GAP 14 01/05/2018 Comp Metabolic Nhr148 GL UCOSE 136 mg/dL 01/05/2018 Comp Metabolic Uqj807 Cr eat 1.0 mg/dL 01/05/2018 Comp Metabolic Jjk397 eG FR 61 ml/min/1.73m2 01/05 Comp Metabolic Hyc693 BUN 22 mg/dL 01/05/2018 Comp Metabolic Wtg681 B/ C Ratio 22.9 Ratio 01/05/2018 Comp Metabolic Jcx725 CA LCIUM 9.7 mg/dL 01/05/2018 Comp Metabolic Xbt759 AL K PHOS 57 U/L 01/05/2018 Comp Metabolic Uyz093 T(SGOT) 21 U/L 01/05/2018 Comp Metabolic Aax413 AL T(SGPT) 19 U/L 01/05/2018 Comp Metabolic Yyw565 BI LI T 0.9 mg/dL 01/05/2018 Comp Metabolic Scp006 AL BUMIN 4.1 g/dL 01/05/2018 Comp Metabolic Tfw757 TP RO 7.1 g/dL 01/05/2018 Comp Metabolic Chp974 GL OB 3.0 g/dL 01/05/2018 Comp Metabolic Nyu767 A/ G Ratio 1.4 Ratio 01/05/2018 Comp Metabolic Nry879 Os mo 287 mOsmo 01/05/2018 Free T4 Lca532 FREE T4 1.05 ng/dL 01/05/2018 %Hba1C Ywi812 % HbA1c 55349-0 6.0 % 01/05/2018 %Hba1C Jwy624 Gluc Ave 126 mg/dL 01/05/2018 Cbc With [...] 30.6 pg 01/05/2018 Cbc With Differential Ord2 [place]% 10.5 % 01/05/2018 Cbc With Differential Ord2 [...] 1.27 K/ul 01/05/2018 Cbc With Differential Ord2 [place] ABS# 0.5 K/ul 01/05/2018 Cbc With Differential Ord2 Eos ABS# 0.2 K/ul 01/05/2018 Cbc With Differential Ord2 Baso ABS# 0.1 K/ul 01/05/2018 Pt Xed1174 PT 20.7 seconds 01/05/2018 Pt Utz3732 INR 1.8 01/05/2018 Pt Orm9256 Low Intensity - 1.5-2.0 01/05/2018 Pt Hap6357 Mod intensity - 2.0-3.0 01/05/2018 Pt Kob1684 Hi intensity - 3.0-4.0 01/05/2018 Tsh Ord6 TSH (3rd IS) 2.34 uIU/mL 01/05/2018 Lipid Ord30 CHOL 156 mg/dL 01/05/2018 Lipid Ord30 HDL 48.0 mg/dl 01/05/2018 Lipid Ord30 TRIG 207 mg/dL 01/05/2018 Lipid Ord30 LDL 67 mg/dL 01/05/2018 Lipid Ord30 C/HDL 3.3 Ratio 01/05/2018 Pt Hev5111 PT 28.3 seconds 11/26/2017 Pt Anc8796 INR 2.6 11/26/2017 Pt Gal9897 Low Intensity - 1.5-2.0 11/26/2017 Pt Bvg1756 Mod intensity - 2.0-3.0 11/26/2017 Pt Afy8069 Hi intensity - 3.0-4.0 11/26/2017 Pt Jqp1034 PT 36.5 seconds 11/19/2017 Pt Ysd5699 INR 3.6 11/19/2017 Pt Rlj2434 Low Intensity - 1.5-2.0 11/19/2017 Pt Bdy2639 Mod intensity - 2.0-3.0 11/19/2017 Pt Jhq3665 Hi intensity - 3.0-4.0 11/19/2017 Pt Qls4717 PT 22.9 seconds 10/15/2017 Pt Laa5291 INR 2.0 10/15/2017 Pt Dyo8571 Low Intensity - 1.5-2.0 10/15/2017 Pt Hzo7894 Mod intensity - 2.0-3.0 10/15/2017 Pt Xaz4489 Hi intensity - 3.0-4.0 10/15/2017 Pt Jmy5313 PT 25.9 seconds 10/01/2017 Pt Xhm6996 INR 2.4 10/01/2017 Pt Hmz0139 Low Intensity - 1.5-2.0 10/01/2017 Pt Mhx3623 Mod intensity - 2.0-3.0 10/01/2017 Pt Rmv3561 Hi intensity - 3.0-4.0 10/01/2017 Pt Pkf6177 PT 20.6 seconds 09/24/2017 Pt Kie0659 INR 1.8 09/24/2017 Pt Mpw4271 Low Intensity - 1.5-2.0 09/24/2017 Pt Gqm5000 Mod intensity - 2.0-3.0 09/24/2017 Pt Bgm0308 Hi intensity - 3.0-4.0 09/24/2017 Pt Hya3672 PT 21.0 seconds 09/15/2017 Pt Jmx2309 INR 1.8 09/15/2017 Pt Umj4496 Low Intensity - 1.5-2.0 09/15/2017 Pt Dhu4488 Mod intensity - 2.0-3.0 09/15/2017 Pt Muj9811 Hi intensity - 3.0-4.0 09/15/2017 Pt Bkm5367 PT 19.0 seconds 09/03/2017 Pt Ibu7527 INR 1.6 09/03/2017 Pt Lps2942 Low Intensity - 1.5-2.0 09/03/2017 Pt Klc8898 Mod intensity - 2.0-3.0 09/03/2017 Pt Jqw9062 Hi intensity - 3.0-4.0 09/03/2017 Pt Eqh7076 PT 17.6 seconds 08/23/2017 Pt Hng0647 INR 1.5 08/23/2017 Pt Qus3835 Low Intensity - 1.5-2.0 08/23/2017 Pt Vqd1540 Mod intensity - 2.0-3.0 08/23/2017 Pt Ttf3234 Hi intensity - 3.0-4.0 08/23/2017 Pt Nvq8865 PT 12.7 seconds 08/20/2017 Pt Scr2776 INR 1.0 08/20/2017 Pt Bep2740 Low Intensity - 1.5-2.0 08/20/2017 Pt Faw4898 Mod intensity - 2.0-3.0 08/20/2017 Pt Cfw9203 Hi intensity - 3.0-4.0 08/20/2017 Pt Aiw5653 PT 12.9 seconds 08/17/2017 Pt Ucc4132 INR 1.0 08/17/2017 Pt Bck2669 Low Intensity - 1.5-2.0 08/17/2017 Pt Hvi2916 Mod intensity - 2.0-3.0 08/17/2017 Pt Lov9016 Hi intensity - 3.0-4.0 08/17/2017 Pt Ros1038 PT 18.5 seconds 08/10/2017 Pt Skk0813 INR 1.6 08/10/2017 Pt Hzk7166 Low Intensity - 1.5-2.0 08/10/2017 Pt Wfa4526 Mod intensity - 2.0-3.0 08/10/2017 Pt Wwu4480 Hi intensity - 3.0-4.0 08/10/2017 Tsh Ord6 [...] 29.3 pg 05/27/2017 Cbc With Differential Ord2 [place]% 8.1 % 05/27/2017 Cbc With Differential Ord2 [...] 1.11 K/ul 05/27/2017 Cbc With Differential Ord2 [place] ABS# 0.6 K/ul 05/27/2017 Cbc With Differential Ord2 Eos ABS# 0.2 K/ul 05/27/2017 Cbc With Differential Ord2 Baso ABS# 0.1 K/ul 05/27/2017 Pt Miz9453 PT 28.2 seconds 05/27/2017 Pt Aqo7908 INR 2.6 05/27/2017 Pt Nyr4368 Low Intensity - 1.5-2.0 05/27/2017 Pt Kci8591 Mod intensity - 2.0-3.0 05/27/2017 Pt Bej7926 Hi intensity - 3.0-4.0 05/27/2017 Lipid Ord30 CHOL 167 mg/dL 05/27/2017 Lipid Ord30 HDL 49.0 mg/dl 05/27/2017 Lipid Ord30 TRIG 347 mg/dL 05/27/2017 Lipid Ord30 LDL 49 mg/dL 05/27/2017 Lipid Ord30 C/HDL 3.4 Ratio 05/27/2017 Magnesium Ord90 Mag 1.4 mg/dL 05/27/2017 %Hba1C Xis100 % HbA1c 26475-6 5.9 % 05/27/2017 %Hba1C Aqi388 Gluc Ave 123 mg/dL 05/27/2017 Comp Metabolic Jyo264 NA 138 mEq/L 05/27/2017 Comp Metabolic Nht548 K 4.1 mEq/L 05/27/2017 Comp Metabolic Vlv760 CL 101 mEq/L 05/27/2017 Comp Metabolic Nnr224 CO2 31.0 mEq/L 05/27/2017 Comp Metabolic Rwo447 AN ION GAP 10 05/27/2017 Comp Metabolic Oik502 GL UCOSE 117 mg/dL 05/27/2017 Comp Metabolic Hpy634 Cr eat 0.9 mg/dL 05/27/2017 Comp Metabolic Ecq933 eG FR 62 ml/min/1.73m2 05/27 Comp Metabolic Cop643 BUN 25 mg/dL 05/27/2017 Comp Metabolic Mar936 B/ C Ratio 26.6 Ratio 05/27/2017 Comp Metabolic Zye685 CA LCIUM 9.5 mg/dL 05/27/2017 Comp Metabolic Ata607 AL K PHOS 73 U/L 05/27/2017 Comp Metabolic Bhu535 T(SGOT) 18 U/L 05/27/2017 Comp Metabolic Cyh306 AL T(SGPT) 12 U/L 05/27/2017 Comp Metabolic Hkl543 BI LI T 0.5 mg/dL 05/27/2017 Comp Metabolic Eit325 AL BUMIN 4.1 g/dL 05/27/2017 Comp Metabolic Pxx985 TP RO 7.1 g/dL 05/27/2017 Comp Metabolic Lka176 GL OB 3.0 g/dL 05/27/2017 Comp Metabolic Hgg374 A/ G Ratio 1.3 Ratio 05/27/2017 Comp Metabolic Gmv351 Os mo 281 mOsmo 05/27/2017 Free T4 Ana198 FREE T4 0.91 ng/dL 05/27/2017 Pt Urc2240 PT 29.2 seconds 04/16/2017 Pt Mqj6263 INR 2.7 04/16/2017 Pt Kex2712 Low Intensity - 1.5-2.0 04/16/2017 Pt Xdy7097 Mod intensity - 2.0-3.0 04/16/2017 Pt Sgc0454 Hi intensity - 3.0-4.0 04/16/2017 Pt Duz6113 PT 30.7 seconds 03/31/2017 Pt Hvm0076 INR 2.9 03/31/2017 Pt Ahq1489 Low Intensity - 1.5-2.0 03/31/2017 Pt Dla5437 Mod intensity - 2.0-3.0 03/31/2017 Pt Zil5172 Hi intensity - 3.0-4.0 03/31/2017 Pt Xnd4939 PT 21.3 seconds 03/26/2017 Pt Kqy2967 INR 1.9 03/26/2017 Pt Tds4570 Low Intensity - 1.5-2.0 03/26/2017 Pt Quy7835 Mod intensity - 2.0-3.0 03/26/2017 Pt Gcz1679 Hi intensity - 3.0-4.0 03/26/2017 Pt Pcw3151 PT 19.8 seconds 03/22/2017 Pt Jtv5934 INR 1.7 03/22/2017 Pt Hzz8354 Low Intensity - 1.5-2.0 03/22/2017 Pt Rvf5180 Mod intensity - 2.0-3.0 03/22/2017 Pt Ncj5256 Hi intensity - 3.0-4.0 03/22/2017 Pt Uaa2560 PT 15.6 seconds 03/19/2017 Pt Vmy2036 INR 1.3 03/19/2017 Pt Jyt5294 Low Intensity - 1.5-2.0 03/19/2017 Pt Pnd7828 Mod intensity - 2.0-3.0 03/19/2017 Pt Hnn2650 Hi intensity - 3.0-4.0 03/19/2017 Pt Gfg9454 PT 13.7 seconds 03/15/2017 Pt Plo7029 INR 1.1 03/15/2017 Pt Pos1241 Low Intensity - 1.5-2.0 03/15/2017 Pt Mku6259 Mod intensity - 2.0-3.0 03/15/2017 Pt Qff8612 Hi intensity - 3.0-4.0 03/15/2017 Pt Hed3325 PT 25.8 seconds 01/28/2017 Pt Eaq8100 INR 2.4 01/28/2017 Pt Zif3244 Low Intensity - 1.5-2.0 01/28/2017 Pt Yeh0528 Mod intensity - 2.0-3.0 01/28/2017 Pt Vkz8972 Hi intensity - 3.0-4.0 01/28/2017 %Hba1C Chg325 % HbA1c 75362-0 6.4 % 10/23/2016 %Hba1C Nkb940 Gluc Ave 137 mg/dL 10/23/2016 Comp Metabolic Tuq724 NA 138 mEq/L 10/23/2016 Comp Metabolic Srm980 K 3.4 mEq/L 10/23/2016 Comp Metabolic Ohy792 CL 100 mEq/L 10/23/2016 Comp Metabolic Jwh646 CO2 30.0 mEq/L 10/23/2016 Comp Metabolic Dta276 AN ION GAP 11 10/23/2016 Comp Metabolic Uus271 GL UCOSE 139 mg/dL 10/23/2016 Comp Metabolic Kmm994 Cr eat 0.9 mg/dL 10/23/2016 Comp Metabolic Svn900 eG FR 62 ml/min/1.73m2 10/23 Comp Metabolic Yla344 BUN 22 mg/dL 10/23/2016 Comp Metabolic Jty750 B/ C Ratio 23.4 Ratio 10/23/2016 Comp Metabolic Iwi410 CA LCIUM 8.7 mg/dL 10/23/2016 Comp Metabolic Rwp965 AL K PHOS 66 U/L 10/23/2016 Comp Metabolic Msr773 T(SGOT) 20 U/L 10/23/2016 Comp Metabolic Uok050 AL T(SGPT) 10 U/L 10/23/2016 Comp Metabolic Lra707 BI LI T 0.5 mg/dL 10/23/2016 Comp Metabolic Vkn122 AL BUMIN 3.5 g/dL 10/23/2016 Comp Metabolic Ges836 TP RO 6.3 g/dL 10/23/2016 Comp Metabolic Civ308 GL OB 2.8 g/dL 10/23/2016 Comp Metabolic Yel348 A/ G Ratio 1.3 Ratio 10/23/2016 Comp Metabolic Mxw283 Os mo 281 mOsmo 10/23/2016 Pt Uun6961 PT 26.8 seconds 10/23/2016 Pt Ucy1852 INR 2.7 10/23/2016 Pt Jll7549 Low Intensity - 1.5-2.0 10/23/2016 Pt Pwl7334 Mod intensity - 2.0-3.0 10/23/2016 Pt Rjf4979 Hi intensity - 3.0-4.0 10/23/2016 Pt Xqa2156 PT 28.3 seconds 09/25/2016 Pt Bqe1418 INR 2.8 09/25/2016 Pt Vet1376 Low Intensity - 1.5-2.0 09/25/2016 Pt Auz7065 Mod intensity - 2.0-3.0 09/25/2016 Pt Sle4075 Hi intensity - 3.0-4.0 09/25/2016 Metabolic Ord15 [...] Metabolic Ord15 CALCIUM 8.8 mg/dL 09/25/2016 Pt Sbi3360 PT 30.6 seconds 09/11/2016 Pt Akn7099 INR 3.2 09/11/2016 Pt Znz4759 Low Intensity - 1.5-2.0 09/11/2016 Pt Heg7375 Mod intensity - 2.0-3.0 09/11/2016 Pt Ara1636 Hi intensity - 3.0-4.0 09/11/2016 Comp Metabolic Odr487 NA 138 mEq/L 09/11/2016 Comp Metabolic Lqq209 K 4.4 mEq/L 09/11/2016 Comp Metabolic Est120 CL 103 mEq/L 09/11/2016 Comp Metabolic Hba091 CO2 31.0 mEq/L 09/11/2016 Comp Metabolic Zij367 AN ION GAP 8 09/11/2016 Comp Metabolic Ekw546 GL UCOSE 146 mg/dL 09/11/2016 Comp Metabolic Jic632 Cr eat 1.0 mg/dL 09/11/2016 Comp Metabolic Nbc128 eG FR 60 ml/min/1.73m2 09/11 Comp Metabolic Oem718 BUN 16 mg/dL 09/11/2016 Comp Metabolic Mev158 B/ C Ratio 16.5 Ratio 09/11/2016 Comp Metabolic Zqa242 CA LCIUM 8.7 mg/dL 09/11/2016 Comp Metabolic Qpj389 AL K PHOS 52 U/L 09/11/2016 Comp Metabolic Cdj241 T(SGOT) 19 U/L 09/11/2016 Comp Metabolic Sqa169 AL T(SGPT) 11 U/L 09/11/2016 Comp Metabolic Hbr576 BI LI T 0.7 mg/dL 09/11/2016 Comp Metabolic Kdb052 AL BUMIN 3.3 g/dL 09/11/2016 Comp Metabolic Eqo329 TP RO 5.8 g/dL 09/11/2016 Comp Metabolic Lcw220 GL OB 2.5 g/dL 09/11/2016 Comp Metabolic Rrm302 A/ G Ratio 1.3 Ratio 09/11/2016 Comp Metabolic Goc124 Os mo 280 mOsmo 09/11/2016 C-Reactive Protein Qnt Crqnt CRP 0.1 mg/dl 08/21/2016 Comp Metabolic Zwk469 NA 139 mEq/L 08/21/2016 Comp Metabolic Blw845 K 4.1 mEq/L 08/21/2016 Comp Metabolic Mfm556 CL 102 mEq/L 08/21/2016 Comp Metabolic Hwi731 CO2 30.0 mEq/L 08/21/2016 Comp Metabolic Ady805 AN ION GAP 11 08/21/2016 Comp Metabolic Ojr001 GL UCOSE 148 mg/dL 08/21/2016 Comp Metabolic Hmy689 Cr eat 1.0 mg/dL 08/21/2016 Comp Metabolic Psv636 eG FR 55 ml/min/1.73m2 08/21 Comp Metabolic Lap182 BUN 21 mg/dL 08/21/2016 Comp Metabolic Eja337 B/ C Ratio 20.2 Ratio 08/21/2016 Comp Metabolic Cjv002 CA LCIUM 9.4 mg/dL 08/21/2016 Comp Metabolic Kjl704 AL K PHOS 63 U/L 08/21/2016 Comp Metabolic Wea306 T(SGOT) 23 U/L 08/21/2016 Comp Metabolic Bbs721 AL T(SGPT) 16 U/L 08/21/2016 Comp Metabolic Jww300 BI LI T 0.6 mg/dL 08/21/2016 Comp Metabolic Jci466 AL BUMIN 3.9 g/dL 08/21/2016 Comp Metabolic Emh337 TP RO 6.8 g/dL 08/21/2016 Comp Metabolic Job454 GL OB 2.9 g/dL 08/21/2016 Comp Metabolic Itk039 A/ G Ratio 1.4 Ratio 08/21/2016 Comp Metabolic Myw137 Os mo 283 mOsmo 08/21/2016 Sed Rate Ord21 ESR 16 mm/hr 08/21/2016 Pt Rys5224 PT 27.2 seconds 08/21/2016 Pt Whz6511 INR 2.7 08/21/2016 Pt Guv1467 Low Intensity - 1.5-2.0 08/21/2016 Pt Vtp4604 Mod intensity - 2.0-3.0 08/21/2016 Pt Vud3489 Hi intensity - 3.0-4.0 08/21/2016 Magnesium Ord90 Mag 1.9 mg/dL 08/21/2016 Pt Jfw6512 PT 25.9 seconds 06/17/2016 Pt Ecu8146 INR 2.5 06/17/2016 Pt Gdt8376 Low Intensity - 1.5-2.0 06/17/2016 Pt Blv8923 Mod intensity - 2.0-3.0 06/17/2016 Pt Yyh5978 Hi intensity - 3.0-4.0 06/17/2016 Tsh Ord6 hTSH II 2.13 uIU/mL 06/08/2016 Free T4 Dmn515 FREE T4 0.79 ng/dL 06/08/2016 Cbc With [...] 26.8 pg 06/08/2016 Cbc With Differential Ord2 [place]% 12.0 % 06/08/2016 Cbc With Differential Ord2 [...] 1.40 K/ul 06/08/2016 Cbc With Differential Ord2 [place] ABS# 0.7 K/ul 06/08/2016 Cbc With Differential Ord2 Eos ABS# 0.3 K/ul 06/08/2016 Cbc With Differential Ord2 Baso ABS# 0.1 K/ul 06/08/2016 %Hba1C Izs841 % HbA1c 99186-0 6.2 % 06/08/2016 %Hba1C Oqq567 Gluc Ave 131 mg/dL 06/08/2016 Comp Metabolic Ivi642 NA 138 mEq/L 06/08/2016 Comp Metabolic Rhw332 K 3.9 mEq/L 06/08/2016 Comp Metabolic Zlp623 CL 105 mEq/L 06/08/2016 Comp Metabolic Bra167 CO2 27.0 mEq/L 06/08/2016 Comp Metabolic Mik778 AN ION GAP 10 06/08/2016 Comp Metabolic Xaf022 GL UCOSE 127 mg/dL 06/08/2016 Comp Metabolic Wjm174 Cr eat 1.0 mg/dL 06/08/2016 Comp Metabolic Mre340 eG FR 59 ml/min/1.73m2 06/08 Comp Metabolic Wkw334 BUN 19 mg/dL 06/08/2016 Comp Metabolic Dtc159 B/ C Ratio 19.4 Ratio 06/08/2016 Comp Metabolic Lki734 CA LCIUM 9.2 mg/dL 06/08/2016 Comp Metabolic Gry598 AL K PHOS 77 U/L 06/08/2016 Comp Metabolic Fvz271 T(SGOT) 19 U/L 06/08/2016 Comp Metabolic Xkg934 AL T(SGPT) 13 U/L 06/08/2016 Comp Metabolic Eai597 BI LI T 0.5 mg/dL 06/08/2016 Comp Metabolic Lxd481 AL BUMIN 3.8 g/dL 06/08/2016 Comp Metabolic Krl856 TP RO 6.6 g/dL 06/08/2016 Comp Metabolic Hrj497 GL OB 2.8 g/dL 06/08/2016 Comp Metabolic Zlm022 A/ G Ratio 1.4 Ratio 06/08/2016 Comp Metabolic Cxk672 Os mo 280 mOsmo 06/08/2016 Pt Jev1601 PT 36.1 seconds 06/08/2016 Pt Dcq1377 INR 3.9 06/08/2016 Pt Lqw0965 Low Intensity - 1.5-2.0 06/08/2016 Pt Qsb6071 Mod intensity - 2.0-3.0 06/08/2016 Pt Mhb9539 Hi intensity - 3.0-4.0 06/08/2016 Lipid Ord30 CHOL 149 mg/dL 06/08/2016 Lipid Ord30 HDL 46.0 mg/dl 06/08/2016 Lipid Ord30 TRIG 279 mg/dL 06/08/2016 Lipid Ord30 LDL 47 mg/dL 06/08/2016 Lipid Ord30 C/HDL 3.2 Ratio 06/08/2016 Pt Kel6170 PT 30.9 seconds 02/12/2016 Pt Fen6882 INR 3.2 02/12/2016 Pt Ndc8581 Low Intensity - 1.5-2.0 02/12/2016 Pt Ifp5420 Mod intensity - 2.0-3.0 02/12/2016 Pt Dhl3991 Hi intensity - 3.0-4.0 02/12/2016 Free T4 Qhx640 FREE T4 1.24 ng/dL 09/27/2015 %Hba1C Gno216 % HbA1c 75492-2 6.4 % 09/27/2015 %Hba1C Mcy615 Gluc Ave 137 mg/dL 09/27/2015 Tsh Ord6 hTSH II 0.37 uIU/mL 09/27/2015 Pt Rwl6540 PT 26.2 seconds 09/27/2015 Pt Wyj6599 INR 2.5 09/27/2015 Pt Xiq1648 Low Intensity - 1.5-2.0 09/27/2015 Pt Cyv7008 Mod intensity - 2.0-3.0 09/27/2015 Pt Zmq6028 Hi intensity - 3.0-4.0 09/27/2015 Pt Dgp1570 PT 27.6 seconds 2015 Pt Bpv1691 INR 2.7 2015 Pt Tdy9330 Low Intensity - 1.5-2.0 2015 Pt Vhf2374 Mod intensity - 2.0-3.0 2015 Pt Oyx2878 Hi intensity - 3.0-4.0 2015 %Hba1C Wjj381 % HbA1c 94158-4 6.1 % 06/11/2015 %Hba1C Dug103 Gluc Ave 128 mg/dL 06/11/2015 Cbc With [...] Ord2 RDW 15.8 % 06/10/2015 Comp Metabolic Rdr995 NA 139 mEq/L 06/10/2015 Comp Metabolic Gvm573 K 4.1 mEq/L 06/10/2015 Comp Metabolic Akw805 CL 105 mEq/L 06/10/2015 Comp Metabolic Dhl130 CO2 27.0 mEq/L 06/10/2015 Comp Metabolic Qep735 AN ION GAP 11 06/10/2015 Comp Metabolic Kqc108 GL UCOSE 127 mg/dL 06/10/2015 Comp Metabolic Rea488 Cr eat 1.0 mg/dL 06/10/2015 Comp Metabolic Pzn772 eG FR 59 ml/min/1.73m2 06/10 Comp Metabolic Wcp719 BUN 21 mg/dL 06/10/2015 Comp Metabolic Xal373 B/ C Ratio 21.2 Ratio 06/10/2015 Comp Metabolic Xsq786 CA LCIUM 9.2 mg/dL 06/10/2015 Comp Metabolic Jtr613 AL K PHOS 87 U/L 06/10/2015 Comp Metabolic Lxb297 T(SGOT) 20 U/L 06/10/2015 Comp Metabolic Ugg901 AL T(SGPT) 17 U/L 06/10/2015 Comp Metabolic Rfb975 BI LI T 0.4 mg/dL 06/10/2015 Comp Metabolic Nbe269 AL BUMIN 4.1 g/dL 06/10/2015 Comp Metabolic Yoe450 TP RO 7.2 g/dL 06/10/2015 Comp Metabolic Stt990 GL OB 3.1 g/dL 06/10/2015 Comp Metabolic Kqz381 A/ G Ratio 1.3 Ratio 06/10/2015 Comp Metabolic Sby258 Os mo 282 mOsmo 06/10/2015 Tsh Ord6 hTSH II 0.86 uIU/mL 06/10/2015 Lipid Ord30 CHOL 161 mg/dL 06/10/2015 Lipid Ord30 HDL 49.0 mg/dl 06/10/2015 Lipid Ord30 TRIG 208 mg/dL 06/10/2015 Lipid Ord30 LDL 70 mg/dL 06/10/2015 Lipid Ord30 C/HDL 3.3 Ratio 06/10/2015 Pt Bmx8300 PT 25.0 seconds 04/09/2015 Pt Flk9200 INR 2.4 04/09/2015 Pt Raa0067 Low Intensity - 1.5-2.0 04/09/2015 Pt Dco9967 Mod intensity - 2.0-3.0 04/09/2015 Pt Zfh6138 Hi intensity - 3.0-4.0 04/09/2015 Free T4 Cvb158 FREE T4 1.05 ng/dL 01/22/2015 Pt Fja2106 PT 27.2 seconds 01/22/2015 Pt Iul8482 INR 2.6 01/22/2015 Pt Ndd2198 Low Intensity - 1.5-2.0 01/22/2015 Pt Clj2961 Mod intensity - 2.0-3.0 01/22/2015 Pt Dwd1772 Hi intensity - 3.0-4.0 01/22/2015 Cbc With [...] Differential Ord2 RDW 15.2 % 01/22/2015 B12 Tdk649 B12 402.00 pg/ml 01/22/2015 Tsh Ord6 hTSH II 0.65 uIU/mL 01/22/2015 Lipid Ord30 CHOL 166 mg/dL 01/22/2015 Lipid Ord30 HDL 48.0 mg/dl 01/22/2015 Lipid Ord30 TRIG 264 mg/dL 01/22/2015 Lipid Ord30 LDL 65 mg/dL 01/22/2015 Lipid Ord30 C/HDL 3.5 Ratio 01/22/2015 Comp Metabolic Nun623 NA 138 mEq/L 01/22/2015 Comp Metabolic Rch760 K 4.1 mEq/L 01/22/2015 Comp Metabolic Exj135 CL 104 mEq/L 01/22/2015 Comp Metabolic Sei407 CO2 29.0 mEq/L 01/22/2015 Comp Metabolic Fit499 AN ION GAP 9 01/22/2015 Comp Metabolic Jfj304 GL UCOSE 106 mg/dL 01/22/2015 Comp Metabolic Qeh961 Cr eat 0.9 mg/dL 01/22/2015 Comp Metabolic Tma874 eG FR 63 ml/min/1.73m2 01/22 Comp Metabolic Kul238 BUN 21 mg/dL 01/22/2015 Comp Metabolic Llm281 B/ C Ratio 22.3 Ratio 01/22/2015 Comp Metabolic Ous179 CA LCIUM 9.4 mg/dL 01/22/2015 Comp Metabolic Osd479 AL K PHOS 83 U/L 01/22/2015 Comp Metabolic Gsn635 T(SGOT) 23 U/L 01/22/2015 Comp Metabolic Iam829 AL T(SGPT) 18 U/L 01/22/2015 Comp Metabolic Kza198 BI LI T 0.8 mg/dL 01/22/2015 Comp Metabolic Nus920 AL BUMIN 4.2 g/dL 01/22/2015 Comp Metabolic Iob063 TP RO 7.3 g/dL 01/22/2015 Comp Metabolic Nyi089 GL OB 3.1 g/dL 01/22/2015 Comp Metabolic Eus191 A/ G Ratio 1.4 Ratio 01/22/2015 Comp Metabolic Bpn379 Os mo 279 mOsmo 01/22/2015 Review of [...] No mental status change 11/02/2016 Psychiatric anxiety 05/1 10/2016 Constitutional No recent illness 09/30/2016 Constitutional No [...] accomodation 01/04/2018 None Full Exam - General 1995 Ears/Nose/Throat otoscopic exam Overall: external auditory canals [...] contact 09/10/2016 None Full Exam - General 1995 Constitutional general appearance Overall: in no acute distress 08/20/2016 None Full Exam - General 1994 Constitutional general appearance Overall: well developed 08/20/2016 None Full Exam - General 1995 Constitutional general appearance Overall: well nourished 08/20/2016 None Full Exam - General 1995 Eyes conjunctiva/eyelids Overall: conjunctiva clear 08/20/2016 None [...] Procedure Codes Date THER/PROPH/DIAG INJ SC/IM CPT-4: 56476 09/02/2018 TRIAMCINOLONE ACET I [place] NOS CPT-4: J3301 09/02/2018 URINALYSIS NONAUTO W /O SCOPE CPT-4: 56629 03/05/2017 Vital Signs Date Vital 09/02/2018 Blood Pressure 1: 128/72 Code: 8480-6 BMI: 38.2 Code: 82515-2 Heart Rate 1: 80 bpm Height: 5'1" SpO2: 98% Weight: 202 lbs 04/14/2018 Blood Pressure 1: 116/78 Code: 8480-6 BMI: 41.6 Code: 18123-6 Heart Rate 1: 72 bpm Height: 5'1" SpO2: 98% Weight: 220 lbs 01/18/2018 Blood Pressure 1: 132/74 Code: 8480-6 BMI: 43.5 Code: 76947-6 Heart Rate 1: 70 bpm Height: 5'1" SpO2: 97% Weight: 230 lbs 01/04/2018 Blood Pressure 1: 134/76 Code: 8480-6 BMI: 42.7 Code: 99147-5 Heart Rate 1: 83 bpm Height: 5'1" SpO2: 98% Weight: 226 lbs 09/23/2017 Blood Pressure 1: 124/76 Code: 8480-6 BMI: 42.3 Code: 63770-5 Heart Rate 1: 94 bpm Height: 5'1" SpO2: 96% Weight: 224 lbs 05/27/2017 Blood Pressure 1: 146/78 Code: 8480-6 BMI: 41.4 Code: 32078-3 Heart Rate 1: 85 bpm Height: 5'1" SpO2: 98% Weight: 219 lbs 02/24/2017 Blood Pressure 1: 138/66 Code: 8480-6 BMI: 41.4 Code: 70582-3 Heart Rate 1: 78 bpm Height: 5'1" SpO2: 97% Weight: 219 lbs 11/02/2016 Blood Pressure 1: 144/72 Code: 8480-6 BMI: 46.1 Code: 73210-1 Heart Rate 1: 78 bpm Height: 5'1" SpO2: 98% Weight: 244 lbs 09/30/2016 Blood Pressure 1: 130/76 Code: 8480-6 BMI: 45.0 Code: 29488-0 Heart Rate 1: 86 bpm Height: 5'1" SpO2: 98% Weight: 238 lbs 09/10/2016 Blood Pressure 1: 136/68 Code: 8480-6 BMI: 46.3 Code: 70993-8 Heart Rate 1: 83 bpm Height: 5'1" SpO2: 98% Weight: 245 lbs 08/20/2016 Blood Pressure 1: 142/78 Code: 8480-6 BMI: 45.3 Code: 54704-7 Heart Rate 1: 84 bpm Height: 5'1" SpO2: 99% Weight: 240 lbs 06/08/2016 Blood Pressure 1: 134/76 Code: 8480-6 BMI: 44.2 Code: 42275-3 Heart Rate 1: 86 bpm Height: 5'1" SpO2: 96% Weight: 234 lbs 04/02/2016 Blood Pressure 1: 142/70 Code: 8480-6 BMI: 44.6 Code: 48844-3 Heart Rate 1: 78 bpm Height: 5'1" SpO2: 97% Weight: 236 lbs 01/14/2016 Blood Pressure 1: 146/72 Code: 8480-6 BMI: 44.2 Code: 63763-7 Heart Rate 1: 86 bpm Height: 5'1" SpO2: 96% Weight: 234 lbs 10/02/2015 Blood Pressure 1: 158/76 Code: 8480-6 BMI: 44.2 Code: 74526-2 Heart Rate 1: 67 bpm Height: 5'1" SpO2: 97% Weight: 234 lbs 07/15/2015 Blood Pressure 1: 200/90 Code: 8480-6 Blood Pressure 1: 148/78 Code: 8480-6 BMI: 44.0 Code: 60851-2 Heart Rate 1: 89 bpm Height: 5'1" SpO2: 97% Weight: 233 lbs 06/10/2015 Blood Pressure 1: 140/82 Code: 8480-6 BMI: 44.0 Code: 67891-6 Heart Rate 1: 78 bpm Height: 5'1" [...] wearing crocs and there was a new malaysian on the floor: her foot didn't move [...] Encounters Encounter Performer Loca tion Codes Date 07480 EST. PATIENT, LEVEL IV Diagnosis: Other acute sinusitis[ICD10: J01.80] Diagnosis: Other allergic rhinitis[ICD10: J30.89] [facility] CPT-4: 93412 09/02/2018 ([id number] EST. P ATIENT, LEVEL IV Diagnosis: Essential (primary) hypertension[ICD10: I10] Diagnosis: Hypothyroidism, unspecified[ICD10: E03.9] Diagnosis: Impaired fasting glucose[ICD10: R73.01] Diagnosis: half-way (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[ICD10: Z79.01] [facility] CPT-4: 05802 04/14/2018 [id number] 53331 EST. P ATIENT, LEVEL III Diagnosis: Localized edema[ICD10: R60.0] Diagnosis: Gastro-esophageal reflux disease without esophagitis[ICD10: K21.9] [facility] CPT-4: 33891 01/18/2018 ([id number]) 25715 EST. P ATIENT, LEVEL IV Diagnosis: Gastro-esophageal reflux disease without esophagitis[ICD10: K21.9] Diagnosis: Localized edema[ICD10: R60.0] Diagnosis: Essential (primary) hypertension[ICD10: I10] Diagnosis: Hypothyroidism, unspecified[ICD10: E03.9] Diagnosis: Impaired fasting glucose[ICD10: R73.01] Edna Almanza MD, [facility] CPT-4: 91779 01/04/2018 ([id number]) 84955 EST. P ATIENT, LEVEL IV Diagnosis: Essential (primary) hypertension[ICD10: I10] Diagnosis: half-way (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[ICD10: Z79.01] Diagnosis: Incisional hernia without obstruction or gangrene[ICD10: K43.2] Diagnosis: Right lower quadrant pain[ICD10: R10.31] Sarai Almanza MD, [facility] CPT-4: 69957 09/23/2017 ([id number]) 54123 EST. P ATIENT, LEVEL IV Diagnosis: Essential (primary) hypertension[ICD10: I10] Diagnosis: Mixed hyperlipidemia[ICD10: E78.2] Diagnosis: Hypothyroidism, unspecified[ICD10: E03.9] Diagnosis: Impaired fasting glucose[ICD10: R73.01] Diagnosis: half-way (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[ICD10: Z79.01] Edna Almanza MD, [facility] CPT-4: 92149 05/27/2017 96085 EST. PATIENT, LEVEL III Diagnosis: Pain in right hip[ICD10: M25.551] Nata Almanza MD, [facility] CPT-4: 43210 02/24/2017 ([id number]) 79677 EST. P ATIENT, LEVEL IV Diagnosis: Essential (primary) hypertension[ICD10: I10] Diagnosis: Localized edema[ICD10: R60.0] Diagnosis: Pain in right hip[ICD10: M25.551] Sarai Almanza MD, [facility] CPT-4: 10600 11/02/2016 ([id number]) 07620 EST. P ATIENT, LEVEL IV Diagnosis: Essential (primary) hypertension[ICD10: I10] Diagnosis: Localized edema[ICD10: R60.0] Sarai Almanza MD, [facility] CPT-4: 84810 09/30/2016 39706 EST. PATIENT, LEVEL IV Diagnosis: Localized edema[ICD10: R60.0] Diagnosis: Pain in joints of left hand[ICD10: M25.542] Diagnosis: Pain in joints of right hand[ICD10: M25.541] Nata Almanza MD, [facility] CPT-4: 16087 09/10/2016 06470 EST. PATIENT, LEVEL IV Diagnosis: Localized edema[ICD10: R60.0] Diagnosis: Pain in joints of left hand[ICD10: M25.542] Diagnosis: Pain in joints of right hand[ICD10: M25.541] Diagnosis: Other fatigue[ICD10: R53.83] Nata Almanza MD, [facility] CPT-4: 45737 08/20/2016 17566 EST. PATIENT, LEVEL IV Diagnosis: Essential (primary) hypertension[ICD10: I10] Diagnosis: Other terminal carman (current) drug therapy[ICD10: Z79.899] Diagnosis: Tinnitus, bilateral[ICD10: H93.13] Nata Almanza MD, [facility] CPT-4: 26926 06/08/2016 07807 EST. PATIENT, LEVEL IV Diagnosis: Other allergic rhinitis[ICD10: J30.89] Diagnosis: Acute laryngopharyngitis[ICD10: J06.0] Nata Almanza MD, [facility] CPT-4: 75302 04/02/2016 35295 EST. PATIENT, LEVEL IV Diagnosis: Left upper quadrant pain[ICD10: R10.12] Nata Almanza MD, [facility] CPT-4: 75237 01/14/2016 23374 EST. PATIENT, LEVEL IV Diagnosis: Pain in left shoulder[ICD10: M25.512] Diagnosis: Body mass index (BMI) 40.0-44.9, adult[ICD10: Z68.41] Nata Almanza MD, [facility] CPT-4: 50518 10/02/2015 41869 EST. PATIENT, LEVEL IV Diagnosis: Pain in left leg[ICD10: M79.605] Diagnosis: Other terminal carman (current) drug therapy[ICD10: Z79.899] [facility] CPT-4: 34928 07/15/2015 ([id number]) 75657 EST. [facility]: Essential (primary) hypertension[ICD10: I10] Diagnosis: Localized edema[ICD10: R60.0] Diagnosis: Pain in right shoulder[ICD10: M25.511] Diagnosis: Mixed hyperlipidemia[ICD10: E78.2] Diagnosis: Other detention (current) drug therapy[ICD10: Z79.899] [facility] CPT-4: 99917 06/10/2015 ([id number]) OFFICE [facility] - LEVEL 4 Diagnosis: ESSENTIAL HYPERTENSION[ICD9: 401.9] Diagnosis: HYPOTHYROIDISM[ICD9: 244.9] Diagnosis: ENCNTR LONG-RX USE NEC[ICD9: V58.69] Diagnosis: HYPERLIPIDEMIA[ICD9: 272.4] Diagnosis: Vitamin B12 deficiency[ICD9: 266.2] Diagnosis: Status post gastric surgery[ICD9: V45.89] Diagnosis: Snoring[ICD9: 786.09] Sarai Almanza MD, [facility] CPT-4: 29289 01/22/2015 Plan of Care Planned Activity Notes [...] allergy spray. 09/02/2018 Appointment: Nata Hsu WPtel: [address] [place], [place] [phone] (15 min) Moderate 09/02/2018 Patient Education: Patient [...] A1C 04/14/2018 Appointment: Edna Douglas WPtel: [phone] (15 min) Moderate 04/14/2018 Patient Education: [...] to further attempt to reduce peripheral edema. JLLL-erpdmpmz-bgkvkbug prilosec BID and carafate QID -discussed low spice, low acidic diet 01/18/2018 Appointment: Edna Douglas WPtel: [phone] [place] [phone] (15 min) Moderate 01/18/2018 Patient Education: Patient [...] of control. 01/04/2018 Appointment: Edna Douglas WPtel: [address] [place], [place] [phone] (30 min) [facility] 01/04/2018 Patient Education: Patient Medication Summary Completed 01/04/2018 Care Plan: SCREENINGMAMMOGRAPHYDIGITAL LOINC : 20731-4 Pending 01/04/2018 Visit Plan: Abdominal hernia - not able to be taken to surgery by local providers and pt has been seen at [facility] and that surgeon felt like Kat would [...] home. 09/23/2017 App[facility]ment: [phone] ([facility] Moderate 09/23/2017 Patient Education: [...] medications. 05/27/2017 [phone] [facility] min) Complex 05/27/2017 Patient [...] [place]. 02/24/2017 Appointment: Nata Hsu WPtel: [phone] [phone] (30 min) Complex 02/24/2017 Patient Education: Patient [...] dr. Chaney. 11/02/2016 Appointment: Sarai Almanza WPtel: [facility]5 [facility] (15 min) Moderate 11/02/2016 Patient Education: [...] peripheral edema. 09/30/2016 Appointment: Sarai Almanza WPtel[facility] ([facility] min) Moderate 09/30/2016 Patient Education: [...] peripheral edema. 09/10/2016 Appointment: Nata Hsu WPtel: [facility] [address] (30 min) Complex 09/10/2016 Patient Education: [...] peripheral edema. 08/20/2016 Appointment: Nata Hsu WPtel: [address] [place] [phone] (30 min) Complex 08/20/2016 Patient Education: Patient Medication Summary Completed 08/20/2016 Referral: Otf Lee [address] Referral Initiated 07/02/2016 Visit Plan: Chronic [...] 06/08/2016 Care Plan: Referral Order SNOMED-CT : [id number] Pending 06/08/2016 Visit Plan: URI - Pt [...] allergy spray. 04/02/2016 Appointment: Nata Hsu WPtel: [phone] (30 min) Complex 04/02/2016 Patient Education: Patient [...] pain 01/14/2016 Appointment: Edna Douglas WPtel: [phone] [phone] (30 min) Complex 01/14/2016 Patient Education: Patient Medication Summary Completed 01/14/2016 Patient Education: Obesity Completed 01/14/2016 Care Plan: BMI Above normal followup DAVID F-MGMT EDUC & TRAIN 1 PT Pending 10/24/2015 Care Plan: X-RAY EXAM OF SHOULDER LOINC : 66750-8 Pending 10/24/2015 Visit Plan: Left shoulder pain [...] check. 10/02/2015 Appointment: Edna Douglas WPtel: [phone] [phone] (15 min) Moderate 10/02/2015 Patient Education: Patient [...] Completed 06/10/2015 Appointment: Sarai Almanza WPtel: [facility]5 [facility] (15 min) Moderate 04/22/2015 Visit Plan: [...] have surgical fixation - planning occurring at [facility]. Snoring - Sleep apnea symptoms with [...] to medications. 01/22/2015 Appointment: Sarai Almanza WPtel: [facility]5 [facility] [place] ([place]) New Patient 01/22/2015 Patient Education: Patient Medication Summary Completed 01/22/2015 Patient Education: Hypertension Completed 01/22/2015 Referral: Otf Lee [address] Referral Initiated Instructions Comment . Chronic Anticoagul [...] they worsen, or with other concerns. . URI - Pt advised t o [...] to further attempt to reduce peripheral edema. EUEL-lrgffrna-lkwpfaxo prilosec BID and carafate QID -discussed low [...] providers and pt has been seen at [facility] and that surgeon felt like Kat would [...] spray in the nasal steroid allergy spray. dr almanza will hav e the staff [...] have surgical fixation - planning occurring at [facility]. Snoring - Sleep apnea symptoms with [...]
--- OUTSIDE RECORDS SUMMARY | 2020-01-16 22:51 | XMS REPORT | CCD ---
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 [place] Medicare Part B [id number] 2017 Unknown Family history Father Diagnosis Age At Onset Hyperlipidemia Unknown Heart Attack Unknown Mother Diagnosis Age At Onset Arthritis Unknown Social History Social History Element Codes Description Effective Dates Marital status Unknown M arried Nathan 09/30/2016 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 Number of children Unknown 3 01/22/[address]: 938410375 Never smoker 01/22/[address]: 759791583 Never drinks alcohol 01/22/2015 Allergies, Adverse Reactions, Alerts Substance Reaction Codes Entered Date Inactivated Date Status * NO KNOWN DRUG ORIN RGIES Unknown 01/22/2015 No Inactive Date Active Past Medical History Illness Codes Condition Status Onset Date Resolved Date Mixed hyperlipidemia ICD-9: 272.4 ICD-10: E78.2 Active 06/09/2015 Unknown Hypothyroidism, unsp ecified ICD-9: 244.9 ICD-10: E03.9 Active 05/27/2017 Unknown 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 ICD-9: V58.61 ICD-10: [...] 780.79 ICD-10: R53.83 Active 08/20/2016 Unknown Other intermediate (cur rent) drug therapy ICD-9: V58.69 ICD-10: [...] ecified ICD-9: 244.9 ICD-10: E03.9 05/27/2017 Active 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 ICD-9: V58.61 ICD-10: [...] ICD-9: 780.79 ICD-10: R53.83 08/20/2016 Active Other intermediate (cur rent) drug therapy ICD-9: V58.69 ICD-10: [...] mupirocin 2 % topica l ointment RxNorm: 590395 1 Application TOP TID 12/08/2018 12/17/2018 Active mupirocin 2 % topica l ointment RxNorm: 639159 1 Application TOP TID 12/08/2018 12/07/2018 Inactive allopurinol 300 mg t ablet RxNorm: 808297 TAKE ONE TABLET BY MO UTH DAILY 11/22/2018 03/21/2019 Ac tive clonazepam 0.5 mg ta blet RxNorm: 483914 1 Tablet(s) PO BID 11/16/2018 04/14/2019 Active Carafate 1 gram tablet RxNorm: 182556 TAKE ONE TABLET BY MOUTH BEFORE MEALS AN D AT BEDTIME 11/15/2018 12/10/2018 Active atenolol 100 mg tablet RxNorm: 633707 TAKE ONE TABLET BY MOUTH DAILY 10/24/2018 05/21/2019 Ac tive potassium chloride E R 20 mEq tablet,extended release RxNorm: 838708 2 Tablet(s) PO daily 10/18/2018 02/14/2019 Active potassium chloride E R 20 mEq tablet,extended release RxNorm: 531161 1 Tablet(s) PO daily 10/03/2018 10/17/2018 Inactive Carafate 1 gram tablet RxNorm: 553594 TAKE ONE TABLET BY MOUTH BEFORE MEALS AN D AT BEDTIME 09/26/2018 11/14/2018 Inactive Plavix 75 mg tablet RxNorm: 102454 TAKE ONE TABLET BY MOUTH DAILY 09/02/2018 02/28/2019 Ac tive prednisone 10 mg tablet RxNorm: 206895 Tablet(s) PO 09/02/2018 No Stop Date Active 60,60,50,50,40,40,30,30,20,20,10,10 Synthroid 125 mcg ta blet RxNorm: 628151 1 Tablet(s) PO daily 09/02/2018 08/27/2019 Active potassium chloride E R 20 mEq tablet,extended release RxNorm: 312481 1 Tablet(s) PO daily 09/02/2018 09/01/2018 Inactive potassium chloride E R 20 mEq tablet,extended release RxNorm: 456870 1 Tablet(s) PO daily 09/02/2018 10/02/2018 Inactive Synthroid 125 mcg ta blet RxNorm: 970228 1 Tablet(s) PO daily 09/02/2018 09/01/2018 Inactive Keflex 500 mg capsule RxNorm: 832245 1 Capsule(s) PO TID 09/02/2018 09/08/2018 Inactive Kenalog 40 mg/mL maxine pension for injection RxNorm: 7178732 Milliliter(s) Inj 09/02/2018 09/02/2018 In active Lipitor 40 mg tablet RxNorm: 068179 TAKE ONE TABLET BY MOUTH DAILY 07/29/2018 07/23/2019 Ac tive Coumadin 1 mg tablet RxNorm: 042555 TAKE ONE TABLET BY MOUTH DAILY 07/29/2018 10/26/2018 In active Carafate 1 gram tablet RxNorm: 914858 TAKE ONE TABLET BY MOUTH BEFORE MEALS AN D AT BEDTIME 07/28/2018 09/17/2018 Inactive Coumadin 4 mg tablet RxNorm: 698096 2 Tablet(s) daily 07/11/2018 02/05/2019 Active Generi c For:COUMADIN 4MG 07/22/2017 8:58:26 AM Coumadin 5 mg tablet RxNorm: 460902 Tablet(s) TAKE 1 TABLET BY MOUTH DIRE CTED 07/08/2018 01/03/2019 Ac tive Generic For:COUMADIN 5MG TAB 03/21/2018 9:13:00 AM Coumadin 4 mg tablet RxNorm: 759544 Tablet(s) TAKE 1 TABLET BY MOUTH THREE T IMES PER WEEK (WEDNESDAY, WEDNESDAY AND WEDNESDAY) 07/08/2018 07/10/2018 Inactive Gene andre For:COUMADIN 4MG 07/22/2017 8:58:26 AM Coumadin 1 mg tablet RxNorm: 661865 1 Tablet(s) PO daily 07/08/2018 08/06/2018 Inactive venlafaxine ER 75 mg capsule,extended release 24 hr RxNorm: 018454 Capsule(s) TAKE 1 CAPSULE BY MOUTH ONCE DAILY 06/23/2018 06/17/2019 Active Generic For:*EFFEXOR XR 75MG 06/19/2017 12:23:45 PM sodium bicarbonate 6 50 mg tablet RxNorm: 495210 Tablet(s) TAKE 2 TABL ETS BY MOUTH TWICE DAILY 06/23/2018 12/19/2018 Active 12/20/2017 9:10:59 AM Coumadin 1 mg tablet RxNorm: 687697 1 Tablet(s) PO daily 06/17/2018 07/07/2018 Inactive Coumadin 1 mg tablet RxNorm: 392816 1 Tablet(s) PO daily 06/17/2018 06/16/2018 Inactive clonazepam 0.5 mg ta blet RxNorm: 067699 1 Tablet(s) PO BID 06/08/2018 11/03/2018 Inactive spironolactone 25 mg tablet RxNorm: 086140 TAKE 1 TABLET BY MOUT H EVERY DAY 05/18/2018 05/12/2019 Ac tive Generic For:*ALDACTONE 25MG 05/18/2018 8:57:50 AM Carafate 1 gram tablet RxNorm: 462111 TAKE ONE TABLET BY MOUTH BEFORE MEALS AN D AT BEDTIME 05/18/2018 07/12/2018 Inactive Generic For:CARAFATE 1GM 1 07/18/2017 8:38:28 AM Synthroid 137 mcg ta blet RxNorm: 770263 TAKE 1 TABLET BY MOUT H ONCE DAILY 05/18/2018 08/30/2018 In active Generic For:SYNTHROID 137MCG TAB 2017 8:57:54 AM allopurinol 300 mg t ablet RxNorm: 026170 TAKE 1 TABLET BY MOUT H ONCE DAILY. 04/18/2018 10/14/2018 In active Generic For:ZYLOPRIM 300 MG TABLET 03/22 9:13:47 AM Lasix 20 mg tablet RxNorm: 998789 TAKE ONE TABLET BY MOUTH DAILY 04/18/2018 08/15/2018 In active Generic For:LASIX 20MG 04/18/2018 9:13: 50 AM Carafate 1 gram tablet RxNorm: 517565 TAKE ONE TABLET BY MOUTH BEFORE MEALS AN D AT BEDTIME 04/18/2018 05/17/2018 Inactive Generic For:CARAFATE 1GM 1 9:32:51 AM Coumadin 5 mg tablet RxNorm: 832442 TAKE 1 TABLET BY MOUTH DIRECTED 03/21/2018 07/07/2018 In active Generic For:COUMADIN 5MG TAB 03/21/2018 9:13:00 AM Carafate 1 gram tablet RxNorm: 626103 TAKE ONE TABLET BY MOUTH BEFORE MEALS AN D AT BEDTIME 03/21/2018 04/17/2018 Inactive Generic For:CARAFATE 1GM 1 9:14:24 AM Carafate 1 gram tablet RxNorm: 953750 1 Tablet(s) PO AC & HS 02/17/2018 03/20/2018 Inactive atenolol 100 mg tablet RxNorm: 023698 1 Tablet(s) PO daily 02/04/2018 09/01/2018 Inactive atenolol 50 mg tablet RxNorm: 700995 1 Tablet(s) PO daily 02/03/2018 02/03/2018 Inactive omeprazole 20 mg cap sean,delayed release RxNorm: 832330 1 Capsule(s) BID 01/21/2018 01/15/2019 Ac tive Generic For:PRILOSEC 20MG 07/22/2017 8:5 8:20 AM Carafate 1 gram tablet RxNorm: 545962 1 Tablet(s) PO AC & HS 01/21/2018 02/16/2018 Inactive Carafate 1 gram tablet RxNorm: 203280 1 Tablet(s) PO AC & HS 01/18/2018 01/20/2018 Inactive Carafate 1 gram tablet RxNorm: 194891 1 Tablet(s) PO AC & HS 01/18/2018 02/27/2018 Inactive Carafate 1 gram tablet RxNorm: 964910 1 Tablet(s) PO AC & HS TAKE ONE TABLET B Y MOUTH TWICE DAILY 01/18/2018 05/17/2018 Inactive Generic For:CARAFATE 1GM 0 12/20/2017 9:10:56 AM omeprazole 20 mg cap sean,delayed release RxNorm: 811582 Capsule(s) TAKE 1 CAP SEAN BY MOUTH EVERY DAY 01/17/2018 01/20/2018 Inactive Generic For:PRILOSEC 20MG 0 07/22/2017 8:58:20 AM omeprazole 20 mg cap sean,delayed release RxNorm: 261861 Capsule(s) TAKE 1 CAP SEAN BY MOUTH EVERY DAY 01/14/2018 01/16/2018 Inactive Generic For:PRILOSEC 20MG 07/22/2017 8:58:20 AM clonazepam 0.5 mg ta blet RxNorm: 981750 1 Tablet(s) PO BID 01/07/2018 06/05/2018 Inactive Plavix 75 mg tablet RxNorm: 790541 1 Tablet(s) PO daily 01/07/2018 07/05/2018 Inactive Carafate 1 gram tablet RxNorm: 257574 1 Tablet(s) PO AC & HS 01/04/2018 01/17/2018 Inactive Lasix 20 mg tablet RxNorm: 266879 TAKE ONE TABLET BY MOUTH DAILY 12/20/2017 04/17/2018 In active Generic For:LASIX 20MG 12/20/2017 9:11: 03 AM sodium bicarbonate 6 50 mg tablet RxNorm: 376971 TAKE 2 TABLETS BY JAVON TH TWICE DAILY 12/20/2017 06/17/2018 In active 12/20/2017 9:10:59 AM Carafate 1 gram tablet RxNorm: 088698 TAKE ONE TABLET BY MOUTH TWICE DAILY 12/20/2017 01/17/2018 In active Generic For:CARAFATE 1GM 12/20/2017 9:1 0:56 AM Synthroid 137 mcg ta blet RxNorm: 091033 TAKE 1 TABLET BY MOUT H ONCE DAILY 11/19/2017 05/17/2018 In active Generic For:SYNTHROID 137MCG TAB 2017 8:58:04 AM Detrol LA 4 mg capsu le,extended release RxNorm: 251986 TAKE 1 CAPSULE BY JAVON TH ONCE DAILY 10/20/2017 04/13/2018 Inactive Generic For:DETROL LA 4MG C AP 10/20/2017 9:01:56 AM allopurinol 300 mg t ablet RxNorm: 950676 TAKE 1 TABLET BY MOUT H ONCE DAILY. 10/20/2017 04/17/2018 In active Generic For:ZYLOPRIM 300 MG TABLET 07/2017 9:01:59 AM Coumadin 5 mg tablet RxNorm: 895772 1 Tablet(s) PO UD 10/01/2017 03/20/2018 Inactive cyclobenzaprine 5 mg tablet RxNorm: 248726 1 Tablet(s) PO TID as needed myscle spasm 09/23/2017 10/12/2017 Inactive Lipitor 40 mg tablet RxNorm: 685070 TAKE 1 TABLET BY MOUTH ONCE DAILY 09/20/2017 07/28/2018 In active Generic For:LIPITOR 40MG 09/20/2017 8:5 6:04 AM atenolol 100 mg tablet RxNorm: 447632 1 Tablet(s) PO daily 08/30/2017 02/03/2018 Inactive atenolol 50 mg tablet RxNorm: 982369 1 Tablet(s) PO daily 08/30/2017 08/30/2017 Inactive Lovenox 30 mg/0.3 mL subcutaneous syringe RxNorm: 880121 0.3 Milliliter(s) SQ Q12H 08/24/2017 09/06/2017 In active Lasix 20 mg tablet RxNorm: 031743 TAKE ONE TABLET BY MOUTH DAILY 08/23/2017 12/19/2017 In active Generic For:LASIX 20MG 08/21/2017 9:04: 27 AM Synthroid 137 mcg ta blet RxNorm: 309085 TAKE 1 TABLET BY MOUT H ONCE DAILY 08/23/2017 11/18/2017 In active Generic For:SYNTHROID 137MCG TAB 2017 9:04:30 AM Lovenox 30 mg/0.3 mL subcutaneous syringe RxNorm: 240794 0.3 Milliliter(s) SQ Q12H 08/10/2017 08/23/2017 In active clonazepam 0.5 mg ta blet RxNorm: 659954 1 Tablet(s) PO BID 08/04/2017 12/30/2017 Inactive omeprazole 20 mg cap sean,delayed release RxNorm: 879527 TAKE 1 CAPSULE BY JAVON TH EVERY DAY 07/22/2017 01/13/2018 Inactive Generic For:PRILOSEC 20MG 07/22/2017 8: 58:20 AM Coumadin 4 mg tablet RxNorm: 272628 TAKE 1 TABLET BY MOUTH THREE TIMES PER [place] (WEDNESDAY, WEDNESDAY AND WEDNESDAY) 07/22/2017 10/03/2018 Inactive Generic For:COUMADIN 4MG 07/22/2017 8:58:26 AM Coumadin 4 mg tablet RxNorm: 620217 TAKE 1 TABLET BY MOUTH THREE TIMES PER [place] (WEDNESDAY, WEDNESDAY AND WEDNESDAY) 07/22/2017 02/16/2018 Inactive Generic For:COUMADIN 4MG 07/22/2017 8:58:26 AM sodium bicarbonate 6 50 mg tablet RxNorm: 468275 TAKE 2 TABLETS BY JAVON TH TWICE DAILY 06/22/2017 12/18/2017 In active 06/19/2017 12:23:30 PM venlafaxine ER 75 mg capsule,extended release 24 hr RxNorm: 325846 TAKE 1 CAPSULE BY MOUTH ONCE DAILY 06/22/2017 06/16/2018 Inactive Generic For:*EFFEXOR XR 75M G 06/19/2017 12:23:45 PM Coumadin 5 mg tablet RxNorm: 871074 1 Tablet(s) PO UD 06/01/2017 09/30/2017 Inactive Keflex 500 mg capsule RxNorm: 543761 1 Capsule(s) PO TID 05/27/2017 06/02/2017 Inactive Synthroid 137 mcg ta blet RxNorm: 298487 TAKE 1 TABLET BY MOUT H ONCE DAILY 05/24/2017 08/21/2017 In active Generic For:SYNTHROID 137MCG TAB 2016 8:55:59 AM Carafate 1 gram tablet RxNorm: 955585 TAKE ONE TABLET BY MOUTH TWICE DAILY 05/24/2017 12/19/2017 In active Generic For:CARAFATE 1GM 05/24/2017 8:5 5:54 AM spironolactone 25 mg tablet RxNorm: 589381 1 Tablet(s) PO daily 05/24/2017 05/17/2018 Inactive Detrol LA 4 mg capsu le,extended release RxNorm: 293315 1 Capsule(s) PO daily TAKE 1 CAPSULE BY MOUTH ONCE DAILY 05/10/2017 10/19/2017 Inactive Generic For:DETROL LA 4MG CAP 02/19/2017 2:36:00 PM Lasix 20 mg tablet RxNorm: 478337 TAKE ONE TABLET BY MOUTH DAILY 04/23/2017 08/20/2017 In active Generic For:LASIX 20MG 04/23/2017 9:04: 01 AM Coumadin 4 mg tablet RxNorm: 273339 TAKE 1 TABLET BY MOUTH THREE TIMES PER [place] (WEDNESDAY, WEDNESDAY AND WEDNESDAY) 04/23/2017 07/21/2017 Inactive Generic For:COUMADIN 4MG 04/23/2017 9:04:05 AM allopurinol 300 mg t ablet RxNorm: 768639 TAKE 1 TABLET BY MOUT H ONCE DAILY. 04/23/2017 10/19/2017 In active Generic For:ZYLOPRIM 300 MG TABLET 08/2016 9:03:57 AM potassium chloride 2 0 mEq/15 mL oral liquid RxNorm: 583506 Milliliter(s) 30 Milliliter(s) (40mEq) PO daily 03/24/2017 07/21/2017 Inactive Lovenox 30 mg/0.3 mL subcutaneous syringe RxNorm: 994625 0.3 Milliliter(s) SQ Q12H 03/22/2017 03/26/2017 In active Lovenox 30 mg/0.3 mL subcutaneous syringe RxNorm: 885603 0.3 Milliliter(s) SQ Q12H 03/19/2017 03/20/2017 In active Lovenox 30 mg/0.3 mL subcutaneous syringe RxNorm: 181604 0.3 Milliliter(s) SQ Q12H 03/16/2017 03/18/2017 In active clonazepam 0.5 mg ta blet RxNorm: 177563 1 Tablet(s) PO BID 03/02/2017 10/03/2018 Inactive Lovenox 30 mg/0.3 mL subcutaneous syringe RxNorm: 845250 1 injection SQ BID do NOT take the night time dose the day before surgery, or the morning dose the day of surgery 03/01/2017 03/07/2017 Inactive Lovenox 30 mg/0.3 mL subcutaneous syringe RxNorm: 824477 1 injection SQ BID 03/01/2017 02/28/2017 In active Detrol LA 4 mg capsu le,extended release RxNorm: 901996 TAKE 1 CAPSULE BY JAVON TH ONCE DAILY 02/19/2017 05/09/2017 Inactive Generic For:DETROL LA 4MG C AP 02/19/2017 2:36:00 PM hydrocodone 5 mg-humberto taminophen 325 mg tablet RxNorm: 067629 1-2 Tablet(s) PO Q6 P RN 02/04/2017 No Stop Date Active Zetia 10 mg tablet RxNorm: 530189 TAKE 1 TABLET BY MOUTH DAILY 01/25/2017 04/13/2018 Inactive 01/23/2017 9:03:48 AM omeprazole 20 mg cap sean,delayed release RxNorm: 803422 TAKE 1 CAPSULE BY JAVON TH EVERY DAY 01/25/2017 07/21/2017 Inactive Generic For:PRILOSEC 20MG 01/23/2017 9: 03:45 AM Coumadin 4 mg tablet RxNorm: 062483 TAKE 1 TABLET BY MOUTH THREE TIMES PER [place] (WEDNESDAY, WEDNESDAY AND WEDNESDAY) 01/25/2017 04/22/2017 Inactive Generic For:COUMADIN 4MG 01/23/2017 9:03:51 AM sodium bicarbonate 6 50 mg tablet RxNorm: 814470 TAKE 2 TABLETS BY JAVON TH TWICE DAILY 12/24/2016 06/21/2017 In active 12/24/2016 9:09:27 AM Lasix 20 mg tablet RxNorm: 238591 1 Tablet(s) PO daily 12/24/2016 04/22/2017 Inactive Synthroid 137 mcg ta blet RxNorm: 654107 TAKE 1 TABLET BY MOUT H ONCE DAILY 11/24/2016 05/22/2017 In active Generic For:SYNTHROID 137MCG TAB 2016 9:04:37 AM Coumadin 4 mg tablet RxNorm: 659088 TAKE 1 TABLET BY MOUTH THREE TIMES PER [place] (WEDNESDAY, WEDNESDAY AND WEDNESDAY) 11/24/2016 01/22/2017 Inactive Generic For:COUMADIN 4MG 11/24/2016 9:04:41 AM hydrocodone 5 mg-humberto taminophen 325 mg tablet RxNorm: 923654 1-2 Tablet(s) PO Q6 P RN 11/17/2016 02/03/2017 In active Carafate 1 gram tablet RxNorm: 132472 TAKE ONE TABLET BY MOUTH TWICE DAILY 10/27/2016 05/23/2017 In active Generic For:CARAFATE 1GM 10/26/2016 8:3 9:42 AM allopurinol 300 mg t ablet RxNorm: 562204 Tablet(s) TAKE 1 TABL ET BY MOUTH ONCE DAILY. 10/26/2016 04/22/2017 Inactive Lipitor 40 mg tablet RxNorm: 095234 1 Tablet(s) PO daily 09/25/2016 09/19/2017 Inactive Coumadin 4 mg tablet RxNorm: 552573 TAKE 1 TABLET BY MOUTH THREE TIMES PER [place] (WEDNESDAY, WEDNESDAY AND WEDNESDAY) 09/25/2016 11/23/2016 Inactive Generic For:COUMADIN 4MG 09/25/2016 8:55:58 AM Zetia 10 mg tablet RxNorm: 269177 1 Tablet(s) PO daily 09/25/2016 01/22/2017 Inactive gave 1 month of samples clonazepam 0.5 mg ta blet RxNorm: 895784 1 Tablet(s) PO BID 09/21/2016 10/03/2018 Inactive Lasix 20 mg tablet RxNorm: 433773 1 Tablet(s) PO daily 09/15/2016 12/23/2016 Inactive potassium chloride 2 0 mEq/15 mL oral liquid RxNorm: 926955 Milliliter(s) 30 Milliliter(s) (40mEq) PO daily 09/15/2016 01/12/2017 Inactive Lasix 20 mg tablet RxNorm: 939731 2 Tablet(s) PO daily 09/10/2016 09/12/2016 Inactive Lasix 20 mg tablet RxNorm: 581923 1 Tablet(s) PO daily 08/28/2016 08/30/2016 Inactive Lasix 20 mg tablet RxNorm: 232485 1 Tablet(s) PO daily 08/20/2016 08/22/2016 Inactive Detrol LA 4 mg capsu le,extended release RxNorm: 814548 TAKE 1 CAPSULE BY JAVON TH ONCE DAILY 07/27/2016 02/18/2017 Inactive Generic For:DETROL LA 4MG C AP 07/27/2016 9:08:27 AM Coumadin 4 mg tablet RxNorm: 975988 1 Tablet(s) PO 3 x week wed th and sun 07/27/2016 09/24/2016 In active omeprazole 20 mg cap sean,delayed release RxNorm: 442481 Capsule(s) PO TAKE 1 CAPSULE BY MOUTH ONCE DAILY 07/27/2016 01/22/2017 Inactive venlafaxine ER 75 mg capsule,extended release 24 hr RxNorm: 765242 1 Capsule(s) PO daily 06/29/2016 06/21/2017 Inactive sodium bicarbonate 6 50 mg tablet RxNorm: 802902 TAKE 2 TABLETS BY JAVON TH TWICE DAILY 06/29/2016 12/23/2016 In active 06/27/2016 9:05:39 AM Coumadin 4 mg tablet RxNorm: 139402 1 Tablet(s) PO 3 x week e and sun 06/09/2016 06/08/2016 In active Coumadin 4 mg tablet RxNorm: 829977 1 Tablet(s) PO 3 x week tue thur and sun 06/09/2016 07/26/2016 In active Zetia 10 mg tablet RxNorm: 303651 1 Tablet(s) PO daily 06/09/2016 06/08/2016 Inactive gave 1 month of samples Zetia 10 mg tablet RxNorm: 807984 1 Tablet(s) PO daily 06/09/2016 09/24/2016 Inactive gave 1 month of samples Effexor 75 mg tablet RxNorm: 825893 1 Tablet(s) PO daily 06/08/2016 06/28/2016 Inactive spironolactone 25 mg tablet RxNorm: 331727 1 Tablet(s) PO daily 06/08/2016 05/23/2017 Inactive Synthroid 137 mcg ta blet RxNorm: 731560 1 Tablet(s) PO daily 05/07/2016 11/02/2016 Inactive allopurinol 300 mg t ablet RxNorm: 233219 Tablet(s) TAKE 1 TABL ET BY MOUTH ONCE DAILY. 04/28/2016 10/24/2016 Inactive clonazepam 0.5 mg ta blet RxNorm: 252380 1 Tablet(s) PO BID 04/20/2016 10/03/2018 Inactive Flonase Allergy Reli ef 50 mcg/actuation nasal spray,suspension RxNorm: 7345134 1 Stuart NASAL BID 04/02/2016 No Stop Date Active Zithromax Z-Thomas 250 mg tablet RxNorm: 869634 Tablet(s) PO 04/02/2016 08/27/2016 Inactive cetirizine 10 mg tablet RxNorm: 0203679 1 Tablet(s) PO daily 04/02/2016 05/01/2016 Inactive Carafate 1 gram tablet RxNorm: 491356 Tablet(s) TAKE 1 TABLET TWICE A DAY FOR 30 DAYS 03/30/2016 10/25/2016 Inactive Generic For:CARAFATE 1GM 02/08/2015 12:3 6:39 PM Plavix 75 mg tablet RxNorm: 278439 1 Tablet(s) PO daily 03/11/2016 09/06/2016 Inactive sodium bicarbonate 6 50 mg tablet RxNorm: 732665 Tablet(s) 2 Tablet(s) PO BID 02/28/2016 06/26/2016 In active omeprazole 20 mg cap sean,delayed release RxNorm: 104982 Capsule(s) PO TAKE 1 CAPSULE BY MOUTH ONCE DAILY 01/31/2016 07/26/2016 Inactive Fish Oil 1,000 mg ca psule RxNorm: 1 Capsule(s) PO BID 01/14/2016 No Stop Date Active Synthroid 137 mcg ta blet RxNorm: 509485 1 Tablet(s) PO daily 01/14/2016 05/06/2016 Inactive Detrol LA 4 mg capsu le,extended release RxNorm: 340343 TAKE 1 CAPSULE BY JAVON TH ONCE DAILY 12/30/2015 07/26/2016 Inactive Generic For:DETROL LA 4MG C AP 12/30/2015 9:11:01 AM potassium chloride 2 0 mEq/15 mL oral liquid RxNorm: 214853 Milliliter(s) 30 Milliliter(s) (40mEq) PO daily 12/02/2015 03/30/2016 Inactive sodium bicarbonate 6 50 mg tablet RxNorm: 924901 Tablet(s) 2 Tablet(s) PO BID 10/31/2015 02/27/2016 In active Lipitor 40 mg tablet RxNorm: 403324 1 Tablet(s) PO daily 10/09/2015 09/24/2016 Inactive sodium bicarbonate 6 50 mg tablet RxNorm: 794892 2 Tablet(s) PO BID 10/01/2015 10/30/2015 Inactive allopurinol 300 mg t ablet RxNorm: 890591 TAKE 1 TABLET BY MOUT H ONCE DAILY. 10/01/2015 04/27/2016 In active Generic For:ZYLOPRIM 300 MG TABLET 09/19 9:21:15 AM clonazepam 0.5 mg ta blet RxNorm: 979557 1 Tablet(s) PO BID 09/30/2015 04/19/2016 Inactive Coumadin 5 mg tablet RxNorm: 845691 1 Tablet(s) PO daily 09/27/2015 05/31/2017 Inactive Generic For:COUMADIN 5MG TAB N O T I C E PRESCRIPTION PREVIOUSLY AUTHORIZED BY DOCTOR:BOBBY ZULETA Synthroid 125 mcg ta blet RxNorm: 955567 1 Tablet(s) PO daily 09/27/2015 09/26/2015 Inactive Synthroid 125 mcg ta blet RxNorm: 274394 1 Tablet(s) PO daily 09/27/2015 01/13/2016 Inactive Carafate 1 gram tablet RxNorm: 830028 Tablet(s) TAKE 1 TABLET TWICE A DAY FOR 30 DAYS 09/02/2015 03/29/2016 Inactive Generic For:CARAFATE 1GM 02/08/2015 12:3 6:39 PM sodium bicarbonate 6 50 mg tablet RxNorm: 942467 2 Tablet(s) PO BID 09/02/2015 09/30/2015 Inactive Prilosec 20 mg capsu le,delayed release RxNorm: 592027 TAKE 1 CAPSULE BY JAVON TH ONCE DAILY 08/02/2015 01/28/2016 Inactive Generic For:PRILOSEC 20MG 08/02/2015 10:03:09 AM N O T I C E PRESCRIPTION PREVIOUSLY AUTHORIZED BY DOCTOR:BOBBY ZULETA Zyrtec 10 mg capsule RxNorm: 6147547 1 Capsule(s) PO daily 07/15/2015 08/13/2015 Inactive Keflex 500 mg capsule RxNorm: 753667 1 Capsule(s) PO TID 07/15/2015 07/21/2015 Inactive cetirizine 10 mg cap sean RxNorm: 3627661 1 Capsule(s) PO daily 07/15/2015 08/13/2015 Inactive hydrocodone 5 mg-humberto taminophen 325 mg tablet RxNorm: 696622 1-2 Tablet(s) PO Q6 P RN 06/10/2015 11/16/2016 In active sodium bicarbonate 6 50 mg tablet RxNorm: 765906 2 Tablet(s) PO BID 06/03/2015 08/31/2015 Inactive Detrol LA 4 mg capsu le,extended release RxNorm: 206210 TAKE 1 CAPSULE BY JAVON TH ONCE DAILY 06/03/2015 12/29/2015 Inactive Generic For:DETROL LA 4MG C AP N O T I C E PRESCRIPTION PREVIOUSLY AUTHORIZED BY DOCTOR:BOBBY ZULETA atenolol 50 mg tablet RxNorm: 894056 1 Tablet(s) PO daily TAKE 1 TABLET BY MO UTH DAILY 05/07/2015 08/23/2017 Inactive Generic For:TENORMIN 50MG 05/04/2015 9:07:22 AM spironolactone 25 mg tablet RxNorm: 837160 1 Tablet(s) PO daily 05/06/2015 06/07/2016 Inactive venlafaxine ER 75 mg capsule,extended release 24 hr RxNorm: 749200 1 Capsule(s) PO daily 05/04/2015 06/28/2016 Inactive atenolol 50 mg tablet RxNorm: 966588 TAKE 1 TABLET BY MOUTH DAILY 05/04/2015 05/06/2015 Inactive Generic For:TENORMIN 50MG 05/04/2015 9: 07:22 AM Synthroid 150 mcg ta blet RxNorm: 700281 TAKE 1 TABLET BY MOUT H ONCE DAILY. 04/05/2015 09/26/2015 In active Generic For:SYNTHROID 150MCG TAB 2014 4:45:40 PM N O T I C E PRESCRIPTION PREVIOUSLY AUTHORIZED BY DOCTOR:BOBBY ZULETA Effexor 75 mg tablet RxNorm: 666391 1 Tablet(s) PO daily 04/05/2015 07/03/2015 Inactive Coumadin 5 mg tablet RxNorm: 658343 TAKE 1 AND 1/2 TABLETS BY MOUTH ONCE MYRANDA LY 04/04/2015 09/26/2015 In active Generic For:COUMADIN 5MG TAB N O T I C E PRESCRIPTION PREVIOUSLY AUTHORIZED BY DOCTOR:BOBBY ZULETA clonazepam 0.5 mg ta blet RxNorm: 144294 1 Tablet(s) PO BID 03/13/2015 11/05/2015 Inactive sodium bicarbonate 6 50 mg tablet RxNorm: 780825 2 Tablet(s) PO BID 03/08/2015 06/02/2015 Inactive allopurinol 300 mg t ablet RxNorm: 221498 TAKE 1 TABLET BY MOUT H ONCE DAILY. 03/05/2015 09/30/2015 In active N O T I C E PRESCRIPTION PREVIOUSLY A UTHORIZED BY DOCTOR:BOBBY ZULETA Plavix 75 mg tablet RxNorm: 791614 1 Tablet(s) PO daily 02/12/2015 09/09/2015 Inactive clonazepam 0.5 mg ta blet RxNorm: 912579 1 Tablet(s) PO BID 02/11/2015 03/11/2015 Inactive Carafate 1 gram tablet RxNorm: 948880 TAKE 1 TABLET TWICE A DAY FOR 30 DAYS 02/08/2015 02/07/2015 In active Generic For:CARAFATE 1GM 02/08/2015 12:3 6:39 PM Carafate 1 gram tablet RxNorm: 369895 Tablet(s) TAKE 1 TABLET TWICE A DAY FOR 30 DAYS 02/08/2015 09/01/2015 Inactive Generic For:CARAFATE 1GM 02/08/2015 12:3 6:39 PM potassium chloride 2 0 mEq/15 mL oral liquid RxNorm: 725771 30 Milliliter(s) (40m Eq) PO daily 02/05/2015 12/01/2015 Inactive atenolol 50 mg tablet RxNorm: 594890 1 Tablet(s) PO daily 02/04/2015 05/03/2015 Inactive [SAVINGS FOR NON-COVERED DRUGS -- BIN:3584, PCN: [email or web address], Group: XXXXX, ID# [id number], Questions: . THIS IS NOT INSURANCE.] potassium chloride 2 0 mEq/15 mL oral liquid RxNorm: 879875 30 Milliliter(s) (40m Eq) PO daily 01/08/2015 02/04/2015 Inactive potassium chloride 2 0 mEq/15 mL oral liquid RxNorm: 269278 30 Milliliter(s) (40m Eq) PO daily 12/07/2014 01/07/2015 Inactive atenolol 50 mg tablet RxNorm: 824532 1 Tablet(s) PO daily 11/09/2014 11/08/2014 Inactive atenolol 50 mg tablet RxNorm: 797771 1 Tablet(s) PO daily 11/09/2014 02/03/2015 Inactive [SAVINGS FOR NON-COVERED DRUGS -- BIN:00 3585, PCN: [email or web address], Group: XXXXX, ID# [id number], Questions: . THIS IS NOT INSURANCE.] Voltaren 1 % topical gel RxNorm: 104220 TOP No St art Date Active verapamil ER (HS) 24 0 mg tablet,extended release 24 hr RxNorm: 626229 1 Tablet(s) PO daily No Start Date Active aspirin 81 mg tablet RxNorm: 849148 1 Tablet(s) PO daily No Start Date Active Zofran 4 mg tablet RxNorm: 525617 1 Tablet(s) PO PRN No Start Date Active B12 1000 mcg RxNorm: 1 Tablet(s) PO daily No Start Date Active magnesium oxide 400 mg capsule RxNorm: 364429 2 Capsule(s) PO BID No Start Date Active Synthroid 150 mcg ta blet RxNorm: 212168 1 Tablet(s) PO daily No Start Date 04/04/2015 Inactive Coumadin 5 mg tablet RxNorm: 177713 1 Tablet(s) PO daily No Start Date 04/03/2015 Inactive cranberry 1,000 mg c apsule RxNorm: 881984 1 Capsule(s) PO daily No Start Date 04/13/2018 Inactive allopurinol 300 mg t ablet RxNorm: 307362 1 Tablet(s) PO daily No Start Date 03/04/2015 Inactive Prilosec 20 mg capsu le,delayed release RxNorm: 091158 1 Capsule(s) PO PRN No Start Date 08/01/2015 Inactive potassium chloride 2 0 mEq/15 mL oral liquid RxNorm: 619596 30 Milliliter(s) (40m Eq) PO daily No Start Date 12/06/2014 Inactive atenolol 50 mg tablet RxNorm: 222872 1 Tablet(s) PO daily No Start Date 08/29/2017 Inactive Lipitor 40 mg tablet RxNorm: 471340 1 Tablet(s) PO daily No Start Date 09/19/2017 Inactive Effexor 75 mg tablet RxNorm: 716534 1 Tablet(s) PO daily No Start Date 04/04/2015 Inactive Carafate 1 gram tablet RxNorm: 381442 1 Tablet(s) PO BID No Start Date 02/07/2015 Inactive clonazepam 0.5 mg ta blet RxNorm: 969411 1 Tablet(s) PO BID No Start Date 02/10/2015 Inactive Plavix 75 mg tablet RxNorm: 231840 1 Tablet(s) PO daily No Start Date 02/11/2015 Inactive sodium bicarbonate 6 50 mg tablet RxNorm: 238699 2 Tablet(s) PO BID No Start Date 09/01/2015 Inactive Lovenox 30 mg/0.3 mL subcutaneous syringe RxNorm: 241876 0.3 Milliliter(s) SQ Q12H No Start Date 03/15/2017 Inactive Fish Oil 1,000 mg ca psule RxNorm: 1 Capsule(s) PO daily No Start Date 01/13/2016 Inactive Detrol LA 4 mg capsu le,extended release RxNorm: 395700 1 Capsule(s) PO daily No Start Date 06/02/2015 Inactive Medication Administered Medication Codes Instruc tions Start Date Status Kenalog 40 mg/mL suspension for injection RxNorm: 2910864 Milliliter 09/02/2018 No longer Active Immunizations Vaccine Codes Date Status SHINGARIX CVX: 121 03/23 completed Assessments Condition Codes Effectiv e Dates Mixed hyperlipidemia ICD-10: E78.2 ICD-9: 272.4 10/05/2018 Other acute sinusitis ICD-10: J01.80 ICD-9: 461.8 09/02/2018 Other allergic rhinitis ICD-10: J30. 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 ICD-10: Z79.01 ICD-9: [...] fatigue ICD-10: R53.83 ICD-9: 780.79 08/20/2016 Other intermediate (current) drug therapy ICD-10: Z79.899 ICD-9: V58.69 [...] Code Item Item Code Result Date Pt [id number] PT 35.0 seconds 12/01/2018 Pt Ffd2113 INR 3.5 12/01/2018 Pt Iuj0960 Low Intensity - 1.5-2.0 12/01/2018 Pt Epi4612 Mod intensity - 2.0-3.0 12/01/2018 Pt Iyp2237 Hi intensity - 3.0-4.0 12/01/2018 Pt Gfq4190 PT 26.3 seconds 10/13/2018 Pt Jex5591 INR 2.5 10/13/2018 Pt Lka8801 Low Intensity - 1.5-2.0 10/13/2018 Pt Ofj5125 Mod intensity - 2.0-3.0 10/13/2018 Pt Swn3556 Hi intensity - 3.0-4.0 10/13/2018 Lipid Ord30 CHOL 180 mg/dL 10/07/2018 Lipid Ord30 HDL 74.0 mg/dl 10/07/2018 Lipid Ord30 TRIG 111 mg/dL 10/07/2018 Lipid Ord30 LDL 84 mg/dL 10/07/2018 Lipid Ord30 C/HDL 2.4 Ratio 10/07/2018 Pt Ubr9861 PT 38.1 seconds 10/07/2018 Pt Jtm3786 INR 3.9 10/07/2018 Pt Ttx6633 Low Intensity - 1.5-2.0 10/07/2018 Pt Hzv3624 Mod intensity - 2.0-3.0 10/07/2018 Pt Whg6817 Hi intensity - 3.0-4.0 10/07/2018 Tsh Ord6 TSH (3rd IS) 0.43 uIU/mL 09/02/2018 Comp Metabolic Lzt247 NA 136 mEq/L 09/02/2018 Comp Metabolic Ytd569 K 4.1 mEq/L 09/02/2018 Comp Metabolic Wkh143 CL 103 mEq/L 09/02/2018 Comp Metabolic Pzu399 CO2 20.0 mEq/L 09/02/2018 Comp Metabolic Lrg637 AN ION GAP 17 09/02/2018 Comp Metabolic Zsf645 GL UCOSE 124 mg/dL 09/02/2018 Comp Metabolic Let640 Cr eat 1.0 mg/dL 09/02/2018 Comp Metabolic Ssv137 eG FR 57 ml/min/1.73m2 09/02 Comp Metabolic Ees664 BUN 24 mg/dL 09/02/2018 Comp Metabolic Fmd828 B/ C Ratio 23.8 Ratio 09/02/2018 Comp Metabolic Vqk201 CA LCIUM 9.5 mg/dL 09/02/2018 Comp Metabolic Axm860 AL K PHOS 64 U/L 09/02/2018 Comp Metabolic Omy213 T(SGOT) 24 U/L 09/02/2018 Comp Metabolic Spu525 AL T(SGPT) 23 U/L 09/02/2018 Comp Metabolic Ddp893 BI LI T 0.5 mg/dL 09/02/2018 Comp Metabolic Caz965 AL BUMIN 4.2 g/dL 09/02/2018 Comp Metabolic Whf795 TP RO 7.4 g/dL 09/02/2018 Comp Metabolic Hkj297 GL OB 3.2 g/dL 09/02/2018 Comp Metabolic Sta197 A/ G Ratio 1.3 Ratio 09/02/2018 Comp Metabolic Cwk514 Os mo 277 mOsmo 09/02/2018 Pt Zrl1497 PT 40.6 seconds 09/02/2018 Pt Xfr3040 INR 4.2 09/02/2018 Pt Wmy8864 Low Intensity - 1.5-2.0 09/02/2018 Pt Uhk4315 Mod intensity - 2.0-3.0 09/02/2018 Pt Cmy7925 Hi intensity - 3.0-4.0 09/02/2018 Free T4 Zzq068 FREE T4 1.51 ng/dL 09/02/2018 Magnesium Ord90 Mag 1.8 mg/dL 09/02/2018 Pt Svj6675 PT 29.2 seconds 08/05/2018 Pt Zly2594 INR 2.8 08/05/2018 Pt Shz5752 Low Intensity - 1.5-2.0 08/05/2018 Pt Oai5444 Mod intensity - 2.0-3.0 08/05/2018 Pt Yei5171 Hi intensity - 3.0-4.0 08/05/2018 Pt Plx0819 PT 30.2 seconds 07/25/2018 Pt Rpa9143 INR 2.9 07/25/2018 Pt Dzw1076 Low Intensity - 1.5-2.0 07/25/2018 Pt Pjs8384 Mod intensity - 2.0-3.0 07/25/2018 Pt Whg0504 Hi intensity - 3.0-4.0 07/25/2018 Pt Foy7243 PT 25.2 seconds 07/19/2018 Pt Haj6924 INR 2.3 07/19/2018 Pt Qoz7661 Low Intensity - 1.5-2.0 07/19/2018 Pt Cpc8937 Mod intensity - 2.0-3.0 07/19/2018 Pt Ack2028 Hi intensity - 3.0-4.0 07/19/2018 Pt Ljk8655 PT 17.4 seconds 07/15/2018 Pt Pfb2652 INR 1.5 07/15/2018 Pt Rbi4722 Low Intensity - 1.5-2.0 07/15/2018 Pt Vnq9952 Mod intensity - 2.0-3.0 07/15/2018 Pt Uhf0321 Hi intensity - 3.0-4.0 07/15/2018 Pt Pyf7679 PT 17.8 seconds 07/08/2018 Pt Bhq4194 INR 1.5 07/08/2018 Pt Qsv2461 Low Intensity - 1.5-2.0 07/08/2018 Pt Itn8168 Mod intensity - 2.0-3.0 07/08/2018 Pt Kav2340 Hi intensity - 3.0-4.0 07/08/2018 Pt Jty1404 PT 19.2 seconds 07/01/2018 Pt Lca1739 INR 1.7 07/01/2018 Pt Tip3101 Low Intensity - 1.5-2.0 07/01/2018 Pt Kli5862 Mod intensity - 2.0-3.0 07/01/2018 Pt Egs6210 Hi intensity - 3.0-4.0 07/01/2018 Pt Loi1520 PT 17.4 seconds 06/23/2018 Pt Nyl8716 INR 1.5 06/23/2018 Pt Fgi5012 Low Intensity - 1.5-2.0 06/23/2018 Pt Vjq2719 Mod intensity - 2.0-3.0 06/23/2018 Pt Tvl8711 Hi intensity - 3.0-4.0 06/23/2018 Pt Ilh3163 PT 18.4 seconds 06/17/2018 Pt Ehp0657 INR 1.6 06/17/2018 Pt Ypm1094 Low Intensity - 1.5-2.0 06/17/2018 Pt Suu7065 Mod intensity - 2.0-3.0 06/17/2018 Pt Ffz6557 Hi intensity - 3.0-4.0 06/17/2018 Sed Rate [...] 30.4 pg 06/08/2018 Cbc With Differential Ord2 [place]% 9.4 % 06/08/2018 Cbc With Differential Ord2 [...] 1.20 K/ul 06/08/2018 Cbc With Differential Ord2 [place] ABS# 0.5 K/ul 06/08/2018 Cbc With Differential Ord2 Eos ABS# 0.1 K/ul 06/08/2018 Cbc With Differential Ord2 Baso ABS# 0.1 K/ul 06/08/2018 C-Reactive Protein Qnt Crqnt CRP 0.1 mg/dl 06/08/2018 Pt Xxp9120 PT 17.6 seconds 06/08/2018 Pt Jlx7041 INR 1.5 06/08/2018 Pt Ndz6358 Low Intensity - 1.5-2.0 06/08/2018 Pt Yvp5748 Mod intensity - 2.0-3.0 06/08/2018 Pt Qgb1560 Hi intensity - 3.0-4.0 06/08/2018 Pt Uth3804 PT 16.8 seconds 05/10/2018 Pt Tnx5232 INR 1.4 05/10/2018 Pt Wbw1164 Low Intensity - 1.5-2.0 05/10/2018 Pt Rpg3760 Mod intensity - 2.0-3.0 05/10/2018 Pt Mia0560 Hi intensity - 3.0-4.0 05/10/2018 Pt Sgn2568 PT 16.7 seconds 05/04/2018 Pt Dgq9465 INR 1.4 05/04/2018 Pt Uku9474 Low Intensity - 1.5-2.0 05/04/2018 Pt Kpw3634 Mod intensity - 2.0-3.0 05/04/2018 Pt Flw2340 Hi intensity - 3.0-4.0 05/04/2018 Free T4 Qhj430 FREE T4 1.09 ng/dL 04/14/2018 Tsh Ord6 TSH (3rd IS) 2.36 uIU/mL 04/14/2018 Pt Gro6367 PT 20.3 seconds 04/14/2018 Pt Tzo0975 INR 1.8 04/14/2018 Pt Yqy7753 Low Intensity - 1.5-2.0 04/14/2018 Pt Eda9702 Mod intensity - 2.0-3.0 04/14/2018 Pt Qkk9523 Hi intensity - 3.0-4.0 04/14/2018 Lipid Ord30 CHOL 149 mg/dL 04/14/2018 Lipid Ord30 HDL 49.0 mg/dl 04/14/2018 Lipid Ord30 TRIG 161 mg/dL 04/14/2018 Lipid Ord30 LDL 68 mg/dL 04/14/2018 Lipid Ord30 C/HDL 3.0 Ratio 04/14/2018 %Hba1C Txl627 % HbA1c 08220-0 5.9 % 04/14/2018 %Hba1C Wsq805 Gluc Ave 123 mg/dL 04/14/2018 Comp Metabolic Pis167 NA 140 mEq/L 04/14/2018 Comp Metabolic Dln738 K 4.1 mEq/L 04/14/2018 Comp Metabolic Ddm889 CL 105 mEq/L 04/14/2018 Comp Metabolic Cak973 CO2 28.0 mEq/L 04/14/2018 Comp Metabolic Dmn242 AN ION GAP 11 04/14/2018 Comp Metabolic Xws373 GL UCOSE 112 mg/dL 04/14/2018 Comp Metabolic Ieo632 Cr eat 1.0 mg/dL 04/14/2018 Comp Metabolic Wgn759 eG FR 58 ml/min/1.73m2 04/14 Comp Metabolic Rem118 BUN 20 mg/dL 04/14/2018 Comp Metabolic Boj621 B/ C Ratio 20.2 Ratio 04/14/2018 Comp Metabolic Ajr570 CA LCIUM 10.0 mg/dL 04/14/2018 Comp Metabolic Vsp409 AL K PHOS 51 U/L 04/14/2018 Comp Metabolic Lst239 T(SGOT) 24 U/L 04/14/2018 Comp Metabolic Wmn164 AL T(SGPT) 21 U/L 04/14/2018 Comp Metabolic Jhh166 BI LI T 0.8 mg/dL 04/14/2018 Comp Metabolic Kkm410 AL BUMIN 4.2 g/dL 04/14/2018 Comp Metabolic Ygy912 TP RO 7.1 g/dL 04/14/2018 Comp Metabolic Afl714 GL OB 2.9 g/dL 04/14/2018 Comp Metabolic Yhk668 A/ G Ratio 1.5 Ratio 04/14/2018 Comp Metabolic Zdr545 Os mo 283 mOsmo 04/14/2018 Cbc With [...] 30.7 pg 04/14/2018 Cbc With Differential Ord2 [place]% 10.6 % 04/14/2018 Cbc With Differential Ord2 [...] 1.18 K/ul 04/14/2018 Cbc With Differential Ord2 [place] ABS# 0.5 K/ul 04/14/2018 Cbc With Differential Ord2 Eos ABS# 0.2 K/ul 04/14/2018 Cbc With Differential Ord2 Baso ABS# 0.1 K/ul 04/14/2018 Pt Mow4067 PT 29.3 seconds 02/11/2018 Pt Gvm8463 INR 2.8 02/11/2018 Pt Mfh3013 Low Intensity - 1.5-2.0 02/11/2018 Pt Qld4190 Mod intensity - 2.0-3.0 02/11/2018 Pt Huh9563 Hi intensity - 3.0-4.0 02/11/2018 Comp Metabolic Bnp745 NA 141 mEq/L 01/05/2018 Comp Metabolic Glx620 K 3.7 mEq/L 01/05/2018 Comp Metabolic Hdq689 CL 102 mEq/L 01/05/2018 Comp Metabolic Rmk974 CO2 29.0 mEq/L 01/05/2018 Comp Metabolic Tbd661 AN ION GAP 14 01/05/2018 Comp Metabolic Qpc833 GL UCOSE 136 mg/dL 01/05/2018 Comp Metabolic Njy392 Cr eat 1.0 mg/dL 01/05/2018 Comp Metabolic Pdt443 eG FR 61 ml/min/1.73m2 01/05 Comp Metabolic Sqm255 BUN 22 mg/dL 01/05/2018 Comp Metabolic Ode823 B/ C Ratio 22.9 Ratio 01/05/2018 Comp Metabolic Zyv364 CA LCIUM 9.7 mg/dL 01/05/2018 Comp Metabolic Zas655 AL K PHOS 57 U/L 01/05/2018 Comp Metabolic Yre290 T(SGOT) 21 U/L 01/05/2018 Comp Metabolic Ffw675 AL T(SGPT) 19 U/L 01/05/2018 Comp Metabolic Xmf806 BI LI T 0.9 mg/dL 01/05/2018 Comp Metabolic Zip096 AL BUMIN 4.1 g/dL 01/05/2018 Comp Metabolic Iyg420 TP RO 7.1 g/dL 01/05/2018 Comp Metabolic Nvm997 GL OB 3.0 g/dL 01/05/2018 Comp Metabolic Xvs502 A/ G Ratio 1.4 Ratio 01/05/2018 Comp Metabolic Mft331 Os mo 287 mOsmo 01/05/2018 Free T4 Lji241 FREE T4 1.05 ng/dL 01/05/2018 %Hba1C Vsn764 % HbA1c 22234-0 6.0 % 01/05/2018 %Hba1C Lzn510 Gluc Ave 126 mg/dL 01/05/2018 Cbc With [...] 30.6 pg 01/05/2018 Cbc With Differential Ord2 [place]% 10.5 % 01/05/2018 Cbc With Differential Ord2 [...] 1.27 K/ul 01/05/2018 Cbc With Differential Ord2 [place] ABS# 0.5 K/ul 01/05/2018 Cbc With Differential Ord2 Eos ABS# 0.2 K/ul 01/05/2018 Cbc With Differential Ord2 Baso ABS# 0.1 K/ul 01/05/2018 Pt Esu8960 PT 20.7 seconds 01/05/2018 Pt Hmb8266 INR 1.8 01/05/2018 Pt Ilb0305 Low Intensity - 1.5-2.0 01/05/2018 Pt Jxe1326 Mod intensity - 2.0-3.0 01/05/2018 Pt Jrb4361 Hi intensity - 3.0-4.0 01/05/2018 Tsh Ord6 TSH (3rd IS) 2.34 uIU/mL 01/05/2018 Lipid Ord30 CHOL 156 mg/dL 01/05/2018 Lipid Ord30 HDL 48.0 mg/dl 01/05/2018 Lipid Ord30 TRIG 207 mg/dL 01/05/2018 Lipid Ord30 LDL 67 mg/dL 01/05/2018 Lipid Ord30 C/HDL 3.3 Ratio 01/05/2018 Pt Ozh1208 PT 28.3 seconds 11/26/2017 Pt Ysh2221 INR 2.6 11/26/2017 Pt Kyx8341 Low Intensity - 1.5-2.0 11/26/2017 Pt Ayk1571 Mod intensity - 2.0-3.0 11/26/2017 Pt War3816 Hi intensity - 3.0-4.0 11/26/2017 Pt Apm6628 PT 36.5 seconds 11/19/2017 Pt Mqx8083 INR 3.6 11/19/2017 Pt Zfj7297 Low Intensity - 1.5-2.0 11/19/2017 Pt Sfh0981 Mod intensity - 2.0-3.0 11/19/2017 Pt Fkv2582 Hi intensity - 3.0-4.0 11/19/2017 Pt Dga9222 PT 22.9 seconds 10/15/2017 Pt Ttm4801 INR 2.0 10/15/2017 Pt Wcb0753 Low Intensity - 1.5-2.0 10/15/2017 Pt Sgb8741 Mod intensity - 2.0-3.0 10/15/2017 Pt Lwm0143 Hi intensity - 3.0-4.0 10/15/2017 Pt Wlz9894 PT 25.9 seconds 10/01/2017 Pt Euz2348 INR 2.4 10/01/2017 Pt Ckm7976 Low Intensity - 1.5-2.0 10/01/2017 Pt Zdv2616 Mod intensity - 2.0-3.0 10/01/2017 Pt Mlb8420 Hi intensity - 3.0-4.0 10/01/2017 Pt Vsb3513 PT 20.6 seconds 09/24/2017 Pt Kxy5174 INR 1.8 09/24/2017 Pt Mzo6685 Low Intensity - 1.5-2.0 09/24/2017 Pt Kdb7905 Mod intensity - 2.0-3.0 09/24/2017 Pt Bvg5681 Hi intensity - 3.0-4.0 09/24/2017 Pt Vnr4385 PT 21.0 seconds 09/15/2017 Pt Nvd0022 INR 1.8 09/15/2017 Pt Dwn9596 Low Intensity - 1.5-2.0 09/15/2017 Pt Kai8847 Mod intensity - 2.0-3.0 09/15/2017 Pt Qxy5723 Hi intensity - 3.0-4.0 09/15/2017 Pt Boz9313 PT 19.0 seconds 09/03/2017 Pt Kro8101 INR 1.6 09/03/2017 Pt Zju2948 Low Intensity - 1.5-2.0 09/03/2017 Pt Qbo4731 Mod intensity - 2.0-3.0 09/03/2017 Pt Qkh2074 Hi intensity - 3.0-4.0 09/03/2017 Pt Dda4243 PT 17.6 seconds 08/23/2017 Pt Jvc3179 INR 1.5 08/23/2017 Pt Zdh6812 Low Intensity - 1.5-2.0 08/23/2017 Pt Mco7675 Mod intensity - 2.0-3.0 08/23/2017 Pt Diy0691 Hi intensity - 3.0-4.0 08/23/2017 Pt Skn6800 PT 12.7 seconds 08/20/2017 Pt Guz6734 INR 1.0 08/20/2017 Pt Uri4659 Low Intensity - 1.5-2.0 08/20/2017 Pt Czy3219 Mod intensity - 2.0-3.0 08/20/2017 Pt Nvu3559 Hi intensity - 3.0-4.0 08/20/2017 Pt Hvu6496 PT 12.9 seconds 08/17/2017 Pt Azl2528 INR 1.0 08/17/2017 Pt Lkh2383 Low Intensity - 1.5-2.0 08/17/2017 Pt Utf5854 Mod intensity - 2.0-3.0 08/17/2017 Pt Rle2925 Hi intensity - 3.0-4.0 08/17/2017 Pt Ugg2804 PT 18.5 seconds 08/10/2017 Pt Jzp2285 INR 1.6 08/10/2017 Pt Dhj9833 Low Intensity - 1.5-2.0 08/10/2017 Pt Elo0039 Mod intensity - 2.0-3.0 08/10/2017 Pt Byp3577 Hi intensity - 3.0-4.0 08/10/2017 Tsh Ord6 [...] 29.3 pg 05/27/2017 Cbc With Differential Ord2 [place]% 8.1 % 05/27/2017 Cbc With Differential Ord2 [...] 1.11 K/ul 05/27/2017 Cbc With Differential Ord2 [place] ABS# 0.6 K/ul 05/27/2017 Cbc With Differential Ord2 Eos ABS# 0.2 K/ul 05/27/2017 Cbc With Differential Ord2 Baso ABS# 0.1 K/ul 05/27/2017 Pt Xfj5196 PT 28.2 seconds 05/27/2017 Pt Alm8152 INR 2.6 05/27/2017 Pt Qhc4918 Low Intensity - 1.5-2.0 05/27/2017 Pt Fkd8687 Mod intensity - 2.0-3.0 05/27/2017 Pt Xni1017 Hi intensity - 3.0-4.0 05/27/2017 Lipid Ord30 CHOL 167 mg/dL 05/27/2017 Lipid Ord30 HDL 49.0 mg/dl 05/27/2017 Lipid Ord30 TRIG 347 mg/dL 05/27/2017 Lipid Ord30 LDL 49 mg/dL 05/27/2017 Lipid Ord30 C/HDL 3.4 Ratio 05/27/2017 Magnesium Ord90 Mag 1.4 mg/dL 05/27/2017 %Hba1C Nvz992 % HbA1c 95310-8 5.9 % 05/27/2017 %Hba1C Dhe691 Gluc Ave 123 mg/dL 05/27/2017 Comp Metabolic Bps111 NA 138 mEq/L 05/27/2017 Comp Metabolic Pjd783 K 4.1 mEq/L 05/27/2017 Comp Metabolic Iks094 CL 101 mEq/L 05/27/2017 Comp Metabolic Tgi616 CO2 31.0 mEq/L 05/27/2017 Comp Metabolic Ult828 AN ION GAP 10 05/27/2017 Comp Metabolic Wzy271 GL UCOSE 117 mg/dL 05/27/2017 Comp Metabolic Duh519 Cr eat 0.9 mg/dL 05/27/2017 Comp Metabolic Zto662 eG FR 62 ml/min/1.73m2 05/27 Comp Metabolic Lus352 BUN 25 mg/dL 05/27/2017 Comp Metabolic Fac483 B/ C Ratio 26.6 Ratio 05/27/2017 Comp Metabolic Etc516 CA LCIUM 9.5 mg/dL 05/27/2017 Comp Metabolic Ssv567 AL K PHOS 73 U/L 05/27/2017 Comp Metabolic Tfl293 T(SGOT) 18 U/L 05/27/2017 Comp Metabolic Poy373 AL T(SGPT) 12 U/L 05/27/2017 Comp Metabolic Tnc706 BI LI T 0.5 mg/dL 05/27/2017 Comp Metabolic Llo333 AL BUMIN 4.1 g/dL 05/27/2017 Comp Metabolic Fku642 TP RO 7.1 g/dL 05/27/2017 Comp Metabolic Jjn216 GL OB 3.0 g/dL 05/27/2017 Comp Metabolic Zvu506 A/ G Ratio 1.3 Ratio 05/27/2017 Comp Metabolic Iib818 Os mo 281 mOsmo 05/27/2017 Free T4 Yrn358 FREE T4 0.91 ng/dL 05/27/2017 Pt Akk4064 PT 29.2 seconds 04/16/2017 Pt Ddy4511 INR 2.7 04/16/2017 Pt Dss0084 Low Intensity - 1.5-2.0 04/16/2017 Pt Sbx0395 Mod intensity - 2.0-3.0 04/16/2017 Pt Bpn0116 Hi intensity - 3.0-4.0 04/16/2017 Pt Haq1875 PT 30.7 seconds 03/31/2017 Pt Fjy2795 INR 2.9 03/31/2017 Pt Rnk1648 Low Intensity - 1.5-2.0 03/31/2017 Pt Zjk3304 Mod intensity - 2.0-3.0 03/31/2017 Pt Hyy3405 Hi intensity - 3.0-4.0 03/31/2017 Pt Eqx0891 PT 21.3 seconds 03/26/2017 Pt Ccw4964 INR 1.9 03/26/2017 Pt Uey8678 Low Intensity - 1.5-2.0 03/26/2017 Pt Hby7715 Mod intensity - 2.0-3.0 03/26/2017 Pt Imw7679 Hi intensity - 3.0-4.0 03/26/2017 Pt Hdg8409 PT 19.8 seconds 03/22/2017 Pt Zoa2310 INR 1.7 03/22/2017 Pt Vmv6889 Low Intensity - 1.5-2.0 03/22/2017 Pt Xus3732 Mod intensity - 2.0-3.0 03/22/2017 Pt Djt0077 Hi intensity - 3.0-4.0 03/22/2017 Pt Whx7740 PT 15.6 seconds 03/19/2017 Pt Vcv6856 INR 1.3 03/19/2017 Pt Rfm5499 Low Intensity - 1.5-2.0 03/19/2017 Pt Vto9349 Mod intensity - 2.0-3.0 03/19/2017 Pt Ano7959 Hi intensity - 3.0-4.0 03/19/2017 Pt Zyg9407 PT 13.7 seconds 03/15/2017 Pt Ytj8099 INR 1.1 03/15/2017 Pt Ipk0490 Low Intensity - 1.5-2.0 03/15/2017 Pt Hsf6380 Mod intensity - 2.0-3.0 03/15/2017 Pt Tcq5933 Hi intensity - 3.0-4.0 03/15/2017 Pt Suj1607 PT 25.8 seconds 01/28/2017 Pt Jrt2406 INR 2.4 01/28/2017 Pt Adb8577 Low Intensity - 1.5-2.0 01/28/2017 Pt Vmt8932 Mod intensity - 2.0-3.0 01/28/2017 Pt Ycq6032 Hi intensity - 3.0-4.0 01/28/2017 %Hba1C Ern522 % HbA1c 71682-3 6.4 % 10/23/2016 %Hba1C Lpb387 Gluc Ave 137 mg/dL 10/23/2016 Comp Metabolic Tcq174 NA 138 mEq/L 10/23/2016 Comp Metabolic Ion769 K 3.4 mEq/L 10/23/2016 Comp Metabolic Hul699 CL 100 mEq/L 10/23/2016 Comp Metabolic Hwb840 CO2 30.0 mEq/L 10/23/2016 Comp Metabolic Dsi036 AN ION GAP 11 10/23/2016 Comp Metabolic Ylg187 GL UCOSE 139 mg/dL 10/23/2016 Comp Metabolic Ogo713 Cr eat 0.9 mg/dL 10/23/2016 Comp Metabolic Rhh215 eG FR 62 ml/min/1.73m2 10/23 Comp Metabolic Iql591 BUN 22 mg/dL 10/23/2016 Comp Metabolic Ofy948 B/ C Ratio 23.4 Ratio 10/23/2016 Comp Metabolic Hic684 CA LCIUM 8.7 mg/dL 10/23/2016 Comp Metabolic Jla754 AL K PHOS 66 U/L 10/23/2016 Comp Metabolic Lxy187 T(SGOT) 20 U/L 10/23/2016 Comp Metabolic Uhv778 AL T(SGPT) 10 U/L 10/23/2016 Comp Metabolic Uih900 BI LI T 0.5 mg/dL 10/23/2016 Comp Metabolic Rlc755 AL BUMIN 3.5 g/dL 10/23/2016 Comp Metabolic Nis044 TP RO 6.3 g/dL 10/23/2016 Comp Metabolic Ikb300 GL OB 2.8 g/dL 10/23/2016 Comp Metabolic Pmd068 A/ G Ratio 1.3 Ratio 10/23/2016 Comp Metabolic Ala544 Os mo 281 mOsmo 10/23/2016 Pt Car6569 PT 26.8 seconds 10/23/2016 Pt Ceu3900 INR 2.7 10/23/2016 Pt Dzg8361 Low Intensity - 1.5-2.0 10/23/2016 Pt Kzc1444 Mod intensity - 2.0-3.0 10/23/2016 Pt Vih1338 Hi intensity - 3.0-4.0 10/23/2016 Pt Qfk6808 PT 28.3 seconds 09/25/2016 Pt Yit7594 INR 2.8 09/25/2016 Pt Uer4695 Low Intensity - 1.5-2.0 09/25/2016 Pt Nph7179 Mod intensity - 2.0-3.0 09/25/2016 Pt Bba4861 Hi intensity - 3.0-4.0 09/25/2016 Metabolic Ord15 [...] Metabolic Ord15 CALCIUM 8.8 mg/dL 09/25/2016 Pt Jzb7554 PT 30.6 seconds 09/11/2016 Pt Vta2526 INR 3.2 09/11/2016 Pt Qpp1123 Low Intensity - 1.5-2.0 09/11/2016 Pt Eok6123 Mod intensity - 2.0-3.0 09/11/2016 Pt Otd5688 Hi intensity - 3.0-4.0 09/11/2016 Comp Metabolic Eey058 NA 138 mEq/L 09/11/2016 Comp Metabolic Hjh642 K 4.4 mEq/L 09/11/2016 Comp Metabolic Kaw216 CL 103 mEq/L 09/11/2016 Comp Metabolic Wxw555 CO2 31.0 mEq/L 09/11/2016 Comp Metabolic Jsj702 AN ION GAP 8 09/11/2016 Comp Metabolic Dum350 GL UCOSE 146 mg/dL 09/11/2016 Comp Metabolic Hdf515 Cr eat 1.0 mg/dL 09/11/2016 Comp Metabolic Wzt174 eG FR 60 ml/min/1.73m2 09/11 Comp Metabolic Uef362 BUN 16 mg/dL 09/11/2016 Comp Metabolic Pjr235 B/ C Ratio 16.5 Ratio 09/11/2016 Comp Metabolic Shx581 CA LCIUM 8.7 mg/dL 09/11/2016 Comp Metabolic Wym771 AL K PHOS 52 U/L 09/11/2016 Comp Metabolic Yyk948 T(SGOT) 19 U/L 09/11/2016 Comp Metabolic Bfx843 AL T(SGPT) 11 U/L 09/11/2016 Comp Metabolic Mkv438 BI LI T 0.7 mg/dL 09/11/2016 Comp Metabolic Ldb057 AL BUMIN 3.3 g/dL 09/11/2016 Comp Metabolic Fil540 TP RO 5.8 g/dL 09/11/2016 Comp Metabolic Bpp614 GL OB 2.5 g/dL 09/11/2016 Comp Metabolic Cbg095 A/ G Ratio 1.3 Ratio 09/11/2016 Comp Metabolic Ckx458 Os mo 280 mOsmo 09/11/2016 C-Reactive Protein Qnt Crqnt CRP 0.1 mg/dl 08/21/2016 Comp Metabolic Pki022 NA 139 mEq/L 08/21/2016 Comp Metabolic Mad680 K 4.1 mEq/L 08/21/2016 Comp Metabolic Lfc463 CL 102 mEq/L 08/21/2016 Comp Metabolic Cdt023 CO2 30.0 mEq/L 08/21/2016 Comp Metabolic Qdt529 AN ION GAP 11 08/21/2016 Comp Metabolic Emx362 GL UCOSE 148 mg/dL 08/21/2016 Comp Metabolic Sla835 Cr eat 1.0 mg/dL 08/21/2016 Comp Metabolic Iji643 eG FR 55 ml/min/1.73m2 08/21 Comp Metabolic Qgf580 BUN 21 mg/dL 08/21/2016 Comp Metabolic Rzl433 B/ C Ratio 20.2 Ratio 08/21/2016 Comp Metabolic Mmo553 CA LCIUM 9.4 mg/dL 08/21/2016 Comp Metabolic Hrw031 AL K PHOS 63 U/L 08/21/2016 Comp Metabolic Ykw011 T(SGOT) 23 U/L 08/21/2016 Comp Metabolic Kvf429 AL T(SGPT) 16 U/L 08/21/2016 Comp Metabolic Iiw145 BI LI T 0.6 mg/dL 08/21/2016 Comp Metabolic Cqd423 AL BUMIN 3.9 g/dL 08/21/2016 Comp Metabolic Svv365 TP RO 6.8 g/dL 08/21/2016 Comp Metabolic Ufd585 GL OB 2.9 g/dL 08/21/2016 Comp Metabolic Fat582 A/ G Ratio 1.4 Ratio 08/21/2016 Comp Metabolic Gau868 Os mo 283 mOsmo 08/21/2016 Sed Rate Ord21 ESR 16 mm/hr 08/21/2016 Pt Lpw0977 PT 27.2 seconds 08/21/2016 Pt Vdy2418 INR 2.7 08/21/2016 Pt Xmh8307 Low Intensity - 1.5-2.0 08/21/2016 Pt Agv9367 Mod intensity - 2.0-3.0 08/21/2016 Pt Lkx7543 Hi intensity - 3.0-4.0 08/21/2016 Magnesium Ord90 Mag 1.9 mg/dL 08/21/2016 Pt Bni5162 PT 25.9 seconds 06/17/2016 Pt Qku6064 INR 2.5 06/17/2016 Pt Gdj1132 Low Intensity - 1.5-2.0 06/17/2016 Pt Odh7095 Mod intensity - 2.0-3.0 06/17/2016 Pt Xwo9411 Hi intensity - 3.0-4.0 06/17/2016 Tsh Ord6 hTSH II 2.13 uIU/mL 06/08/2016 Free T4 Ibu968 FREE T4 0.79 ng/dL 06/08/2016 Cbc With [...] 26.8 pg 06/08/2016 Cbc With Differential Ord2 [place]% 12.0 % 06/08/2016 Cbc With Differential Ord2 [...] 1.40 K/ul 06/08/2016 Cbc With Differential Ord2 [place] ABS# 0.7 K/ul 06/08/2016 Cbc With Differential Ord2 Eos ABS# 0.3 K/ul 06/08/2016 Cbc With Differential Ord2 Baso ABS# 0.1 K/ul 06/08/2016 %Hba1C Fws122 % HbA1c 88217-8 6.2 % 06/08/2016 %Hba1C Woy652 Gluc Ave 131 mg/dL 06/08/2016 Comp Metabolic Fuc218 NA 138 mEq/L 06/08/2016 Comp Metabolic Qxy434 K 3.9 mEq/L 06/08/2016 Comp Metabolic Ndh207 CL 105 mEq/L 06/08/2016 Comp Metabolic Spg483 CO2 27.0 mEq/L 06/08/2016 Comp Metabolic Jph152 AN ION GAP 10 06/08/2016 Comp Metabolic Xmk127 GL UCOSE 127 mg/dL 06/08/2016 Comp Metabolic Hrc340 Cr eat 1.0 mg/dL 06/08/2016 Comp Metabolic Xwc306 eG FR 59 ml/min/1.73m2 06/08 Comp Metabolic Rye365 BUN 19 mg/dL 06/08/2016 Comp Metabolic Fvy279 B/ C Ratio 19.4 Ratio 06/08/2016 Comp Metabolic Wih250 CA LCIUM 9.2 mg/dL 06/08/2016 Comp Metabolic Tqj176 AL K PHOS 77 U/L 06/08/2016 Comp Metabolic Gyg255 T(SGOT) 19 U/L 06/08/2016 Comp Metabolic Lwl918 AL T(SGPT) 13 U/L 06/08/2016 Comp Metabolic Vyc719 BI LI T 0.5 mg/dL 06/08/2016 Comp Metabolic Qql893 AL BUMIN 3.8 g/dL 06/08/2016 Comp Metabolic Upq112 TP RO 6.6 g/dL 06/08/2016 Comp Metabolic Nwu785 GL OB 2.8 g/dL 06/08/2016 Comp Metabolic Lzc567 A/ G Ratio 1.4 Ratio 06/08/2016 Comp Metabolic Akm297 Os mo 280 mOsmo 06/08/2016 Pt Rwn2587 PT 36.1 seconds 06/08/2016 Pt Oij8958 INR 3.9 06/08/2016 Pt Vsi3043 Low Intensity - 1.5-2.0 06/08/2016 Pt Wkl9919 Mod intensity - 2.0-3.0 06/08/2016 Pt Ipd6568 Hi intensity - 3.0-4.0 06/08/2016 Lipid Ord30 CHOL 149 mg/dL 06/08/2016 Lipid Ord30 HDL 46.0 mg/dl 06/08/2016 Lipid Ord30 TRIG 279 mg/dL 06/08/2016 Lipid Ord30 LDL 47 mg/dL 06/08/2016 Lipid Ord30 C/HDL 3.2 Ratio 06/08/2016 Pt Hlz0722 PT 30.9 seconds 02/12/2016 Pt Zgu6942 INR 3.2 02/12/2016 Pt Mao5292 Low Intensity - 1.5-2.0 02/12/2016 Pt Gqu3077 Mod intensity - 2.0-3.0 02/12/2016 Pt Ciz1801 Hi intensity - 3.0-4.0 02/12/2016 Free T4 Evp223 FREE T4 1.24 ng/dL 09/27/2015 %Hba1C Gai187 % HbA1c 91672-0 6.4 % 09/27/2015 %Hba1C Htq386 Gluc Ave 137 mg/dL 09/27/2015 Tsh Ord6 hTSH II 0.37 uIU/mL 09/27/2015 Pt Pli5512 PT 26.2 seconds 09/27/2015 Pt Tud6890 INR 2.5 09/27/2015 Pt Onx5552 Low Intensity - 1.5-2.0 09/27/2015 Pt Amz3716 Mod intensity - 2.0-3.0 09/27/2015 Pt Vch7688 Hi intensity - 3.0-4.0 09/27/2015 Pt Kva0226 PT 27.6 seconds 2015 Pt Ryw5645 INR 2.7 2015 Pt Ffg5954 Low Intensity - 1.5-2.0 2015 Pt Zeg6807 Mod intensity - 2.0-3.0 2015 Pt Nmn3113 Hi intensity - 3.0-4.0 2015 %Hba1C Zqs009 % HbA1c 31333-9 6.1 % 06/11/2015 %Hba1C Vuu488 Gluc Ave 128 mg/dL 06/11/2015 Cbc With [...] Ord2 RDW 15.8 % 06/10/2015 Comp Metabolic Pto639 NA 139 mEq/L 06/10/2015 Comp Metabolic Dmd641 K 4.1 mEq/L 06/10/2015 Comp Metabolic Occ897 CL 105 mEq/L 06/10/2015 Comp Metabolic Qxf466 CO2 27.0 mEq/L 06/10/2015 Comp Metabolic Pgc206 AN ION GAP 11 06/10/2015 Comp Metabolic Tdj123 GL UCOSE 127 mg/dL 06/10/2015 Comp Metabolic Rnj399 Cr eat 1.0 mg/dL 06/10/2015 Comp Metabolic Rbp250 eG FR 59 ml/min/1.73m2 06/10 Comp Metabolic Prl890 BUN 21 mg/dL 06/10/2015 Comp Metabolic Ela537 B/ C Ratio 21.2 Ratio 06/10/2015 Comp Metabolic Xbk730 CA LCIUM 9.2 mg/dL 06/10/2015 Comp Metabolic Xcr608 AL K PHOS 87 U/L 06/10/2015 Comp Metabolic Kgz805 T(SGOT) 20 U/L 06/10/2015 Comp Metabolic Psz189 AL T(SGPT) 17 U/L 06/10/2015 Comp Metabolic Yel372 BI LI T 0.4 mg/dL 06/10/2015 Comp Metabolic Jgx750 AL BUMIN 4.1 g/dL 06/10/2015 Comp Metabolic Ism557 TP RO 7.2 g/dL 06/10/2015 Comp Metabolic Ydl400 GL OB 3.1 g/dL 06/10/2015 Comp Metabolic Jxu308 A/ G Ratio 1.3 Ratio 06/10/2015 Comp Metabolic Rph258 Os mo 282 mOsmo 06/10/2015 Tsh Ord6 hTSH II 0.86 uIU/mL 06/10/2015 Lipid Ord30 CHOL 161 mg/dL 06/10/2015 Lipid Ord30 HDL 49.0 mg/dl 06/10/2015 Lipid Ord30 TRIG 208 mg/dL 06/10/2015 Lipid Ord30 LDL 70 mg/dL 06/10/2015 Lipid Ord30 C/HDL 3.3 Ratio 06/10/2015 Pt Ilg3686 PT 25.0 seconds 04/09/2015 Pt Snx1177 INR 2.4 04/09/2015 Pt Cok7324 Low Intensity - 1.5-2.0 04/09/2015 Pt Ncg6476 Mod intensity - 2.0-3.0 04/09/2015 Pt Gxw5780 Hi intensity - 3.0-4.0 04/09/2015 Free T4 Trj452 FREE T4 1.05 ng/dL 01/22/2015 Pt Zkx2101 PT 27.2 seconds 01/22/2015 Pt Rjo4545 INR 2.6 01/22/2015 Pt Jyg6948 Low Intensity - 1.5-2.0 01/22/2015 Pt Vhy1542 Mod intensity - 2.0-3.0 01/22/2015 Pt Tbc5999 Hi intensity - 3.0-4.0 01/22/2015 Cbc With [...] Differential Ord2 RDW 15.2 % 01/22/2015 B12 Uzr629 B12 402.00 pg/ml 01/22/2015 Tsh Ord6 hTSH II 0.65 uIU/mL 01/22/2015 Lipid Ord30 CHOL 166 mg/dL 01/22/2015 Lipid Ord30 HDL 48.0 mg/dl 01/22/2015 Lipid Ord30 TRIG 264 mg/dL 01/22/2015 Lipid Ord30 LDL 65 mg/dL 01/22/2015 Lipid Ord30 C/HDL 3.5 Ratio 01/22/2015 Comp Metabolic Kiq073 NA 138 mEq/L 01/22/2015 Comp Metabolic Qql020 K 4.1 mEq/L 01/22/2015 Comp Metabolic Qrj891 CL 104 mEq/L 01/22/2015 Comp Metabolic Otg246 CO2 29.0 mEq/L 01/22/2015 Comp Metabolic Syj257 AN ION GAP 9 01/22/2015 Comp Metabolic Owe746 GL UCOSE 106 mg/dL 01/22/2015 Comp Metabolic Lym525 Cr eat 0.9 mg/dL 01/22/2015 Comp Metabolic Rnr446 eG FR 63 ml/min/1.73m2 01/22 Comp Metabolic Bhp267 BUN 21 mg/dL 01/22/2015 Comp Metabolic Bdp062 B/ C Ratio 22.3 Ratio 01/22/2015 Comp Metabolic Ypq748 CA LCIUM 9.4 mg/dL 01/22/2015 Comp Metabolic Qlh641 AL K PHOS 83 U/L 01/22/2015 Comp Metabolic Zft269 T(SGOT) 23 U/L 01/22/2015 Comp Metabolic Eos590 AL T(SGPT) 18 U/L 01/22/2015 Comp Metabolic Bns856 BI LI T 0.8 mg/dL 01/22/2015 Comp Metabolic Pnz928 AL BUMIN 4.2 g/dL 01/22/2015 Comp Metabolic Oeh050 TP RO 7.3 g/dL 01/22/2015 Comp Metabolic Mml590 GL OB 3.1 g/dL 01/22/2015 Comp Metabolic Phq927 A/ G Ratio 1.4 Ratio 01/22/2015 Comp Metabolic Zub764 Os mo 279 mOsmo 01/22/2015 Review of [...] Procedure Codes Date THER/PROPH/DIAG INJ SC/IM CPT-4: 26738 09/02/2018 TRIAMCINOLONE ACET I [place] NOS CPT-4: J3301 09/02/2018 URINALYSIS NONAUTO W /O SCOPE CPT-4: 82840 03/05/2017 Vital Signs Date Vital 09/02/2018 Blood Pressure 1: 128/72 Code: 8480-6 BMI: 38.2 Code: 83878-3 Heart Rate 1: 80 bpm Height: 5'1" SpO2: 98% Weight: 202 lbs 04/14/2018 Blood Pressure 1: 116/78 Code: 8480-6 BMI: 41.6 Code: 62940-1 Heart Rate 1: 72 bpm Height: 5'1" SpO2: 98% Weight: 220 lbs 01/18/2018 Blood Pressure 1: 132/74 Code: 8480-6 BMI: 43.5 Code: 05725-1 Heart Rate 1: 70 bpm Height: 5'1" SpO2: 97% Weight: 230 lbs 01/04/2018 Blood Pressure 1: 134/76 Code: 8480-6 BMI: 42.7 Code: 99649-2 Heart Rate 1: 83 bpm Height: 5'1" SpO2: 98% Weight: 226 lbs 09/23/2017 Blood Pressure 1: 124/76 Code: 8480-6 BMI: 42.3 Code: 11407-1 Heart Rate 1: 94 bpm Height: 5'1" SpO2: 96% Weight: 224 lbs 05/27/2017 Blood Pressure 1: 146/78 Code: 8480-6 BMI: 41.4 Code: 50453-8 Heart Rate 1: 85 bpm Height: 5'1" SpO2: 98% Weight: 219 lbs 02/24/2017 Blood Pressure 1: 138/66 Code: 8480-6 BMI: 41.4 Code: 21471-5 Heart Rate 1: 78 bpm Height: 5'1" SpO2: 97% Weight: 219 lbs 11/02/2016 Blood Pressure 1: 144/72 Code: 8480-6 BMI: 46.1 Code: 34387-7 Heart Rate 1: 78 bpm Height: 5'1" SpO2: 98% Weight: 244 lbs 09/30/2016 Blood Pressure 1: 130/76 Code: 8480-6 BMI: 45.0 Code: 13814-7 Heart Rate 1: 86 bpm Height: 5'1" SpO2: 98% Weight: 238 lbs 09/10/2016 Blood Pressure 1: 136/68 Code: 8480-6 BMI: 46.3 Code: 51360-8 Heart Rate 1: 83 bpm Height: 5'1" SpO2: 98% Weight: 245 lbs 08/20/2016 Blood Pressure 1: 142/78 Code: 8480-6 BMI: 45.3 Code: 28359-7 Heart Rate 1: 84 bpm Height: 5'1" SpO2: 99% Weight: 240 lbs 06/08/2016 Blood Pressure 1: 134/76 Code: 8480-6 BMI: 44.2 Code: 31254-8 Heart Rate 1: 86 bpm Height: 5'1" SpO2: 96% Weight: 234 lbs 04/02/2016 Blood Pressure 1: 142/70 Code: 8480-6 BMI: 44.6 Code: 32435-1 Heart Rate 1: 78 bpm Height: 5'1" SpO2: 97% Weight: 236 lbs 01/14/2016 Blood Pressure 1: 146/72 Code: 8480-6 BMI: 44.2 Code: 29023-0 Heart Rate 1: 86 bpm Height: 5'1" SpO2: 96% Weight: 234 lbs 10/02/2015 Blood Pressure 1: 158/76 Code: 8480-6 BMI: 44.2 Code: 74836-2 Heart Rate 1: 67 bpm Height: 5'1" SpO2: 97% Weight: 234 lbs 07/15/2015 Blood Pressure 1: 200/90 Code: 8480-6 Blood Pressure 1: 148/78 Code: 8480-6 BMI: 44.0 Code: 84510-0 Heart Rate 1: 89 bpm Height: 5'1" SpO2: 97% Weight: 233 lbs 06/10/2015 Blood Pressure 1: 140/82 Code: 8480-6 BMI: 44.0 Code: 00130-8 Heart Rate 1: 78 bpm Height: 5'1" [...] wearing crocs and there was a [place] on the floor: her foot didn't move [...] Encounters Encounter Performer Loca tion Codes Date [id number] EST. PATIENT, LEVEL IV Diagnosis: Other acute sinusitis[ICD10: J01.80] Diagnosis: Other allergic rhinitis[ICD10: J30.89] Nata Almanza MD, [facility] CPT-4: 82354 09/02/2018 [id number] [id number] EST. P ATIENT, LEVEL IV Diagnosis: Essential (primary) hypertension[ICD10: I10] Diagnosis: Hypothyroidism, unspecified[ICD10: E03.9] Diagnosis: Impaired fasting glucose[ICD10: R73.01] Diagnosis: nursing home (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[ICD10: Z79.01] Edna Almanza MD, [facility] CPT-4: 49907 04/14/2018 [id number] EST. P ATIENT, LEVEL III Diagnosis: Localized edema[ICD10: R60.0] Diagnosis: Gastro-esophageal reflux disease without esophagitis[ICD10: K21.9] Edna Almanza MD, [facility] CPT-4: 98152 01/18/2018 [id number]) 61684 EST. P ATIENT, LEVEL IV Diagnosis: Gastro-esophageal reflux disease without esophagitis[ICD10: K21.9] Diagnosis: Localized edema[ICD10: R60.0] Diagnosis: Essential (primary) hypertension[ICD10: I10] Diagnosis: Hypothyroidism, unspecified[ICD10: E03.9] Diagnosis: Impaired fasting glucose[ICD10: R73.01] Edna Almanza MD, [facility] CPT-4: 28424 01/04/2018 ([id number]) 21597 EST. P ATIENT, LEVEL IV Diagnosis: Essential (primary) hypertension[ICD10: I10] Diagnosis: nursing home (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[ICD10: Z79.01] Diagnosis: Incisional hernia without obstruction or gangrene[ICD10: K43.2] Diagnosis: Right lower quadrant pain[ICD10: R10.31] Sarai Almanza MD, [facility] CPT-4: 77493 09/23/2017 ([id number]) 75815 EST. P ATIENT, LEVEL IV Diagnosis: Essential (primary) hypertension[ICD10: I10] Diagnosis: Mixed hyperlipidemia[ICD10: E78.2] Diagnosis: Hypothyroidism, unspecified[ICD10: E03.9] Diagnosis: Impaired fasting glucose[ICD10: R73.01] Diagnosis: nursing home (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[ICD10: Z79.01] Edna Almanza MD, [facility] CPT-4: 00246 05/27/2017 02566 EST. PATIENT, LEVEL III Diagnosis: Pain in right hip[ICD10: M25.551] Nata Almanza MD, [facility] CPT-4: 18440 02/24/2017 ([id number]) 40744 EST. P ATIENT, LEVEL IV Diagnosis: Essential (primary) hypertension[ICD10: I10] Diagnosis: Localized edema[ICD10: R60.0] Diagnosis: Pain in right hip[ICD10: M25.551] Sarai Almanza MD, [facility] CPT-4: 68172 11/02/2016 ([id number]) 40972 EST. P ATIENT, LEVEL IV Diagnosis: Essential (primary) hypertension[ICD10: I10] Diagnosis: Localized edema[ICD10: R60.0] Sarai Almanza MD, [facility] CPT-4: 02741 09/30/2016 [id number] EST. PATIENT, LEVEL IV Diagnosis: Localized edema[ICD10: R60.0] Diagnosis: Pain in joints of left hand[ICD10: M25.542] Diagnosis: Pain in joints of right hand[ICD10: M25.541] Nata Almanza MD, [facility] CPT-4: 70938 09/10/2016 85163 EST. PATIENT, LEVEL IV Diagnosis: Localized edema[ICD10: R60.0] Diagnosis: Pain in joints of left hand[ICD10: M25.542] Diagnosis: Pain in joints of right hand[ICD10: M25.541] Diagnosis: Other fatigue[ICD10: R53.83] Nata Almanza MD, [facility] CPT-4: 14359 08/20/2016 40112 EST. 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 PATIENT, LEVEL IV Diagnosis: Other allergic rhinitis[ICD10: J30.89] Diagnosis: Acute laryngopharyngitis[ICD10: J06.0] Nata Almanza MD, [facility] CPT-4: 21270 04/02/2016 57412 EST. PATIENT, LEVEL IV Diagnosis: Left upper quadrant pain[ICD10: R10.12] Nata Almanza MD, [facility] CPT-4: 05974 01/14/2016 85589 EST. PATIENT, LEVEL IV Diagnosis: Pain in left shoulder[ICD10: M25.512] Diagnosis: Body mass index (BMI) 40.0-44.9, adult[ICD10: Z68.41] Nata Almanza MD, [facility] CPT-4: 51091 10/02/2015 87417 EST. 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 09/02/2018 Appointment: Nata Hsu WPtel: [address] [place], [place] [address] (15 min) Moderate 09/02/2018 Patient Education: Patient [...] Hgb A1C 04/14/2018 Appointment: Edna Douglas WPtel: [phone] [phone] (15 min) Moderate 04/14/2018 Patient Education: [...] to further attempt to reduce peripheral edema. BCXE-bxiwnscv-beghosxz prilosec BID and carafate QID -discussed low spice, low acidic diet 01/18/2018 Appointment: Edna Douglas WPtel: [phone] [phone] (15 min) Moderate 01/18/2018 Patient Education: [...] control. 01/04/2018 Appointment: [phone] [place] (30 min) Complex 01/04/2018 Patient Education: Patient Medication Summary Completed 01/04/2018 Care Plan: SCREENINGMAMMOGRAPHYDIGITAL LOINC : 77721-7 Pending 01/04/2018 Visit Plan: Abdominal hernia - not able to be taken to surgery by local providers and pt has been seen at [facility] and that surgeon felt like [place] would be better served by Dr. Betancur [...] home. 09/23/2017 App[facility]ment: [phone] [facility] [place] (15 min) Moderate 09/23/2017 Patient Education: [...] medications. 05/27/2017 Appointment: Edna Douglas [facility]el[phone] [phone] (30 min) Complex 05/27/2017 Patient Education: Patient [...] Dr. Palacios. 02/24/2017 Appointment: Nata Hsu WPtel: [facility] [place] [place] (30 min) Complex 02/24/2017 Patient Education: [...] dr. Chaney. 11/02/2016 Appointment: Sarai Almanza WPtel: [phone] (15 min) Moderate 11/02/2016 Patient Education: [...] edema. 09/30/2016 Appointment: [phone] [facility] (15 min) Moderate 09/30/2016 Patient Education: [...] edema. 09/10/2016 Appointment: Nata Hsu WPtel: [phone] [facility] (30 min) Complex 09/10/2016 Patient Education: Patient [...] peripheral edema. 08/20/2016 Appointment: Nata Hsu WPtel: [facility] (30 min) Complex 08/20/2016 Patient Education: Patient Medication Summary Completed 08/20/2016 Referral: Rosa [address] Referral Initiated 07/02/2016 Visit Plan: Chronic [...] 06/08/2016 Care Plan: Referral Order SNOMED-CT : [id number] Pending 06/08/2016 Visit Plan: URI - Pt [...] allergy spray. 04/02/2016 Appointment: Nata Hsu WPtel: [facility] [place] (30 min) Complex 04/02/2016 Patient Education: [...] acute pain 01/14/2016 Appointment: Edna Douglas WPtel: [phone] [place] (30 min) Complex 01/14/2016 Patient Education: Patient Medication Summary Completed 01/14/2016 Patient Education: Obesity Completed 01/14/2016 Care Plan: BMI Above normal followup DAVID F-MGMT EDUC & TRAIN 1 PT Pending 10/24/2015 Care Plan: X-RAY EXAM OF SHOULDER LOINC : 53041-3 Pending 10/24/2015 Visit Plan: Left shoulder pain [...] weight check. 10/02/2015 Appointment: Edna Douglas WPtel: [phone] [place] (15 min) Moderate 10/02/2015 Patient Education: [...] ses Completed 06/10/2015 Appointment: Sarai Almanza WPtel: [facility] (15 min) Moderate 04/22/2015 Visit Plan: [...] surgical fixation - planning occurring at [facility]. Snoring - Sleep apnea symptoms with difficulty [...] to medications. 01/22/2015 Appointment: Sarai Almanza WPtel: [address] [place], [place] [phone] [place] (S) New Patient 01/22/2015 Patient Education: Patient Medication Summary Completed 01/22/2015 Patient Education: Hypertension Completed 01/22/2015 Referral: Otf Lee [address] Referral Initiated Instructions Comment . Hypertension [...] assure normal liver response to medications. . Joint complaints, fatigue - will check [...] in the nasal steroid allergy spray. . Left shoulder pain - pt states [...] to further attempt to reduce peripheral edema. RREA-raxslbaw-xbyezqlz prilosec BID and carafate QID -discussed low [...] providers and pt has been seen at [facility] and that surgeon felt like [place] would [...] surgical fixation - planning occurring at [facility]. Snoring - Sleep apnea symptoms with difficulty [...]
--- OUTSIDE RECORDS SUMMARY | 2020-01-16 22:52 | XMS REPORT | CCD ---
Author Author Kat Almanza Organization Sarai Almanza MD, [facility] Address [address] [place] [address] Phone Care Team Providers Care Compressor Service Technician Name Role Phone PP Unavailable CCM Unavailable Summary Purpose Interface Exchange Insurance Providers Payer name Policy type / Coverage type Covered libertarian ID Effective Begin Date Effective End Date WPS Medicare Part B Medicare Part B [id number] 2017 Unknown [employer] [place] Medicare Part B [id number] 2017 Unknown Family history Father Diagnosis Age At Onset Hyperlipidemia Unknown Heart Attack Unknown Mother Diagnosis Age At Onset Arthritis Unknown Social History Social History Element Codes Description Effective Dates Marital status Unknown M arried Nathan 09/30/2016 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 Number of children Unknown 3 01/22/[address]: 602758664 Never smoker 01/22/[address]: 653146546 Never drinks alcohol 01/22/2015 Allergies, Adverse Reactions, Alerts Substance Reaction Codes Entered Date Inactivated Date Status * NO KNOWN DRUG ORIN RGIES Unknown 01/22/2015 No Inactive Date Active Past Medical History Illness Codes Condition Status Onset Date Resolved Date Mixed hyperlipidemia ICD-9: 272.4 ICD-10: E78.2 Active 06/09/2015 Unknown Hypothyroidism, unsp ecified ICD-9: 244.9 ICD-10: E03.9 Active 05/27/2017 Unknown 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 ICD-10: [...] ecified ICD-9: 244.9 ICD-10: E03.9 05/27/2017 Active 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 ICD-10: [...] Date Stop Date Sta tus Fill Instructions allopurinol 300 mg t ablet RxNorm: 818640 TAKE ONE TABLET BY MO UTH DAILY 11/22/2018 03/21/2019 Ac tive clonazepam 0.5 mg ta blet RxNorm: 248854 1 Tablet(s) PO BID 11/16/2018 04/14/2019 Active Carafate 1 gram tablet RxNorm: 121457 TAKE ONE TABLET BY MOUTH BEFORE MEALS AN D AT BEDTIME 11/15/2018 12/10/2018 Active atenolol 100 mg tablet RxNorm: 261529 TAKE ONE TABLET BY MOUTH DAILY 10/24/2018 05/21/2019 Ac tive potassium chloride E R 20 mEq tablet,extended release RxNorm: 356239 2 Tablet(s) PO daily 10/18/2018 02/14/2019 Active potassium chloride E R 20 mEq tablet,extended release RxNorm: 666774 1 Tablet(s) PO daily 10/03/2018 10/17/2018 Inactive Carafate 1 gram tablet RxNorm: 417877 TAKE ONE TABLET BY MOUTH BEFORE MEALS AN D AT BEDTIME 09/26/2018 11/14/2018 Inactive Plavix 75 mg tablet RxNorm: 861724 TAKE ONE TABLET BY MOUTH DAILY 09/02/2018 02/28/2019 Ac tive prednisone 10 mg tablet RxNorm: 112478 Tablet(s) PO 09/02/2018 No Stop Date Active 60,60,50,50,40,40,30,30,20,20,10,10 Synthroid 125 mcg ta blet RxNorm: 333189 1 Tablet(s) PO daily 09/02/2018 08/27/2019 Active potassium chloride E R 20 mEq tablet,extended release RxNorm: 095945 1 Tablet(s) PO daily 09/02/2018 09/01/2018 Inactive potassium chloride E R 20 mEq tablet,extended release RxNorm: 860203 1 Tablet(s) PO daily 09/02/2018 10/02/2018 Inactive Synthroid 125 mcg ta blet RxNorm: 129720 1 Tablet(s) PO daily 09/02/2018 09/01/2018 Inactive Keflex 500 mg capsule RxNorm: 451619 1 Capsule(s) PO TID 09/02/2018 09/08/2018 Inactive Kenalog 40 mg/mL maxine pension for injection RxNorm: 1116767 Milliliter(s) Inj 09/02/2018 09/02/2018 In active Lipitor 40 mg tablet RxNorm: 348953 TAKE ONE TABLET BY MOUTH DAILY 07/29/2018 07/23/2019 Ac tive Coumadin 1 mg tablet RxNorm: 764034 TAKE ONE TABLET BY MOUTH DAILY 07/29/2018 10/26/2018 In active Carafate 1 gram tablet RxNorm: 404478 TAKE ONE TABLET BY MOUTH BEFORE MEALS AN D AT BEDTIME 07/28/2018 09/17/2018 Inactive Coumadin 4 mg tablet RxNorm: 632690 2 Tablet(s) daily 07/11/2018 02/05/2019 Active Generi c For:COUMADIN 4MG 07/22/2017 8:58:26 AM Coumadin 5 mg tablet RxNorm: 067247 Tablet(s) TAKE 1 TABLET BY MOUTH DIRE CTED 07/08/2018 01/03/2019 Ac tive Generic For:COUMADIN 5MG TAB 03/21/2018 9:13:00 AM Coumadin 4 mg tablet RxNorm: 594455 Tablet(s) TAKE 1 TABLET BY MOUTH THREE T IMES PER WEEK (WEDNESDAY, WEDNESDAY AND WEDNESDAY) 07/08/2018 07/10/2018 Inactive Gene andre For:COUMADIN 4MG 07/22/2017 8:58:26 AM Coumadin 1 mg tablet RxNorm: 513896 1 Tablet(s) PO daily 07/08/2018 08/06/2018 Inactive venlafaxine ER 75 mg capsule,extended release 24 hr RxNorm: 942934 Capsule(s) TAKE 1 CAPSULE BY MOUTH ONCE DAILY 06/23/2018 06/17/2019 Active Generic For:*EFFEXOR XR 75MG 06/19/2017 12:23:45 PM sodium bicarbonate 6 50 mg tablet RxNorm: 124364 Tablet(s) TAKE 2 TABL ETS BY MOUTH TWICE DAILY 06/23/2018 12/19/2018 Active 12/20/2017 9:10:59 AM Coumadin 1 mg tablet RxNorm: 070540 1 Tablet(s) PO daily 06/17/2018 07/07/2018 Inactive Coumadin 1 mg tablet RxNorm: 979260 1 Tablet(s) PO daily 06/17/2018 06/16/2018 Inactive clonazepam 0.5 mg ta blet RxNorm: 377804 1 Tablet(s) PO BID 06/08/2018 11/03/2018 Inactive spironolactone 25 mg tablet RxNorm: 585250 TAKE 1 TABLET BY MOUT H EVERY DAY 05/18/2018 05/12/2019 Ac tive Generic For:*ALDACTONE 25MG 05/18/2018 8:57:50 AM Carafate 1 gram tablet RxNorm: 613801 TAKE ONE TABLET BY MOUTH BEFORE MEALS AN D AT BEDTIME 05/18/2018 07/12/2018 Inactive Generic For:CARAFATE 1GM 1 07/18/2017 8:38:28 AM Synthroid 137 mcg ta blet RxNorm: 069920 TAKE 1 TABLET BY MOUT H ONCE DAILY 05/18/2018 08/30/2018 In active Generic For:SYNTHROID 137MCG TAB 2017 8:57:54 AM allopurinol 300 mg t ablet RxNorm: 608866 TAKE 1 TABLET BY MOUT H ONCE DAILY. 04/18/2018 10/14/2018 In active Generic For:ZYLOPRIM 300 MG TABLET 03/22 9:13:47 AM Lasix 20 mg tablet RxNorm: 746600 TAKE ONE TABLET BY MOUTH DAILY 04/18/2018 08/15/2018 In active Generic For:LASIX 20MG 04/18/2018 9:13: 50 AM Carafate 1 gram tablet RxNorm: 964794 TAKE ONE TABLET BY MOUTH BEFORE MEALS AN D AT BEDTIME 04/18/2018 05/17/2018 Inactive Generic For:CARAFATE 1GM 1 9:32:51 AM Coumadin 5 mg tablet RxNorm: 806015 TAKE 1 TABLET BY MOUTH DIRECTED 03/21/2018 07/07/2018 In active Generic For:COUMADIN 5MG TAB 03/21/2018 9:13:00 AM Carafate 1 gram tablet RxNorm: 091367 TAKE ONE TABLET BY MOUTH BEFORE MEALS AN D AT BEDTIME 03/21/2018 04/17/2018 Inactive Generic For:CARAFATE 1GM 1 9:14:24 AM Carafate 1 gram tablet RxNorm: 806869 1 Tablet(s) PO AC & HS 02/17/2018 03/20/2018 Inactive atenolol 100 mg tablet RxNorm: 744838 1 Tablet(s) PO daily 02/04/2018 09/01/2018 Inactive atenolol 50 mg tablet RxNorm: 932457 1 Tablet(s) PO daily 02/03/2018 02/03/2018 Inactive omeprazole 20 mg cap sean,delayed release RxNorm: 456188 1 Capsule(s) BID 01/21/2018 01/15/2019 Ac tive Generic For:PRILOSEC 20MG 07/22/2017 8:5 8:20 AM Carafate 1 gram tablet RxNorm: 918978 1 Tablet(s) PO AC & HS 01/21/2018 02/16/2018 Inactive Carafate 1 gram tablet RxNorm: 557925 1 Tablet(s) PO AC & HS 01/18/2018 01/20/2018 Inactive Carafate 1 gram tablet RxNorm: 647129 1 Tablet(s) PO AC & HS 01/18/2018 02/27/2018 Inactive Carafate 1 gram tablet RxNorm: 984406 1 Tablet(s) PO AC & HS TAKE ONE TABLET B Y MOUTH TWICE DAILY 01/18/2018 05/17/2018 Inactive Generic For:CARAFATE 1GM 0 12/20/2017 9:10:56 AM omeprazole 20 mg cap sean,delayed release RxNorm: 321935 Capsule(s) TAKE 1 CAP SEAN BY MOUTH EVERY DAY 01/17/2018 01/20/2018 Inactive Generic For:PRILOSEC 20MG 0 07/22/2017 8:58:20 AM omeprazole 20 mg cap sean,delayed release RxNorm: 670225 Capsule(s) TAKE 1 CAP SEAN BY MOUTH EVERY DAY 01/14/2018 01/16/2018 Inactive Generic For:PRILOSEC 20MG 07/22/2017 8:58:20 AM clonazepam 0.5 mg ta blet RxNorm: 940443 1 Tablet(s) PO BID 01/07/2018 06/05/2018 Inactive Plavix 75 mg tablet RxNorm: 966526 1 Tablet(s) PO daily 01/07/2018 07/05/2018 Inactive Carafate 1 gram tablet RxNorm: 302948 1 Tablet(s) PO AC & HS 01/04/2018 01/17/2018 Inactive Lasix 20 mg tablet RxNorm: 061115 TAKE ONE TABLET BY MOUTH DAILY 12/20/2017 04/17/2018 In active Generic For:LASIX 20MG 12/20/2017 9:11: 03 AM sodium bicarbonate 6 50 mg tablet RxNorm: 662449 TAKE 2 TABLETS BY JAVON TH TWICE DAILY 12/20/2017 06/17/2018 In active 12/20/2017 9:10:59 AM Carafate 1 gram tablet RxNorm: 429941 TAKE ONE TABLET BY MOUTH TWICE DAILY 12/20/2017 01/17/2018 In active Generic For:CARAFATE 1GM 12/20/2017 9:1 0:56 AM Synthroid 137 mcg ta blet RxNorm: 021393 TAKE 1 TABLET BY MOUT H ONCE DAILY 11/19/2017 05/17/2018 In active Generic For:SYNTHROID 137MCG TAB 2017 8:58:04 AM Detrol LA 4 mg capsu le,extended release RxNorm: 224345 TAKE 1 CAPSULE BY JAVON TH ONCE DAILY 10/20/2017 04/13/2018 Inactive Generic For:DETROL LA 4MG C AP 10/20/2017 9:01:56 AM allopurinol 300 mg t ablet RxNorm: 679509 TAKE 1 TABLET BY MOUT H ONCE DAILY. 10/20/2017 04/17/2018 In active Generic For:ZYLOPRIM 300 MG TABLET 07/2017 9:01:59 AM Coumadin 5 mg tablet RxNorm: 862800 1 Tablet(s) PO UD 10/01/2017 03/20/2018 Inactive cyclobenzaprine 5 mg tablet RxNorm: 112340 1 Tablet(s) PO TID as needed myscle spasm 09/23/2017 10/12/2017 Inactive Lipitor 40 mg tablet RxNorm: 299763 TAKE 1 TABLET BY MOUTH ONCE DAILY 09/20/2017 07/28/2018 In active Generic For:LIPITOR 40MG 09/20/2017 8:5 6:04 AM atenolol 100 mg tablet RxNorm: 402181 1 Tablet(s) PO daily 08/30/2017 02/03/2018 Inactive atenolol 50 mg tablet RxNorm: 874396 1 Tablet(s) PO daily 08/30/2017 08/30/2017 Inactive Lovenox 30 mg/0.3 mL subcutaneous syringe RxNorm: 719295 0.3 Milliliter(s) SQ Q12H 08/24/2017 09/06/2017 In active Lasix 20 mg tablet RxNorm: 641012 TAKE ONE TABLET BY MOUTH DAILY 08/23/2017 12/19/2017 In active Generic For:LASIX 20MG 08/21/2017 9:04: 27 AM Synthroid 137 mcg ta blet RxNorm: 464794 TAKE 1 TABLET BY MOUT H ONCE DAILY 08/23/2017 11/18/2017 In active Generic For:SYNTHROID 137MCG TAB 2017 9:04:30 AM Lovenox 30 mg/0.3 mL subcutaneous syringe RxNorm: 765414 0.3 Milliliter(s) SQ Q12H 08/10/2017 08/23/2017 In active clonazepam 0.5 mg ta blet RxNorm: 675619 1 Tablet(s) PO BID 08/04/2017 12/30/2017 Inactive omeprazole 20 mg cap sean,delayed release RxNorm: 473299 TAKE 1 CAPSULE BY JAVON TH EVERY DAY 07/22/2017 01/13/2018 Inactive Generic For:PRILOSEC 20MG 07/22/2017 8: 58:20 AM Coumadin 4 mg tablet RxNorm: 380058 TAKE 1 TABLET BY MOUTH THREE TIMES PER W NISQUALLY (WEDNESDAY, WEDNESDAY AND WEDNESDAY) 07/22/2017 10/03/2018 Inactive Generic For:COUMADIN 4MG 07/22/2017 8:58:26 AM Coumadin 4 mg tablet RxNorm: 079303 TAKE 1 TABLET BY MOUTH THREE TIMES PER W NISQUALLY (WEDNESDAY, WEDNESDAY AND WEDNESDAY) 07/22/2017 02/16/2018 Inactive Generic For:COUMADIN 4MG 07/22/2017 8:58:26 AM sodium bicarbonate 6 50 mg tablet RxNorm: 077178 TAKE 2 TABLETS BY JAVON TH TWICE DAILY 06/22/2017 12/18/2017 In active 06/19/2017 12:23:30 PM venlafaxine ER 75 mg capsule,extended release 24 hr RxNorm: 696571 TAKE 1 CAPSULE BY MOUTH ONCE DAILY 06/22/2017 06/16/2018 Inactive Generic For:*EFFEXOR XR 75M G 06/19/2017 12:23:45 PM Coumadin 5 mg tablet RxNorm: 389781 1 Tablet(s) PO UD 06/01/2017 09/30/2017 Inactive Keflex 500 mg capsule RxNorm: 381796 1 Capsule(s) PO TID 05/27/2017 06/02/2017 Inactive Synthroid 137 mcg ta blet RxNorm: 264509 TAKE 1 TABLET BY MOUT H ONCE DAILY 05/24/2017 08/21/2017 In active Generic For:SYNTHROID 137MCG TAB 2016 8:55:59 AM Carafate 1 gram tablet RxNorm: 862018 TAKE ONE TABLET BY MOUTH TWICE DAILY 05/24/2017 12/19/2017 In active Generic For:CARAFATE 1GM 05/24/2017 8:5 5:54 AM spironolactone 25 mg tablet RxNorm: 967663 1 Tablet(s) PO daily 05/24/2017 05/17/2018 Inactive Detrol LA 4 mg capsu le,extended release RxNorm: 369228 1 Capsule(s) PO daily TAKE 1 CAPSULE BY MOUTH ONCE DAILY 05/10/2017 10/19/2017 Inactive Generic For:DETROL LA 4MG CAP 02/19/2017 2:36:00 PM Lasix 20 mg tablet RxNorm: 992001 TAKE ONE TABLET BY MOUTH DAILY 04/23/2017 08/20/2017 In active Generic For:LASIX 20MG 04/23/2017 9:04: 01 AM Coumadin 4 mg tablet RxNorm: 368791 TAKE 1 TABLET BY MOUTH THREE TIMES PER W NISQUALLY (WEDNESDAY, WEDNESDAY AND WEDNESDAY) 04/23/2017 07/21/2017 Inactive Generic For:COUMADIN 4MG 04/23/2017 9:04:05 AM allopurinol 300 mg t ablet RxNorm: 033566 TAKE 1 TABLET BY MOUT H ONCE DAILY. 04/23/2017 10/19/2017 In active Generic For:ZYLOPRIM 300 MG TABLET 08/2016 9:03:57 AM potassium chloride 2 0 mEq/15 mL oral liquid RxNorm: 921371 Milliliter(s) 30 Milliliter(s) (40mEq) PO daily 03/24/2017 07/21/2017 Inactive Lovenox 30 mg/0.3 mL subcutaneous syringe RxNorm: 074823 0.3 Milliliter(s) SQ Q12H 03/22/2017 03/26/2017 In active Lovenox 30 mg/0.3 mL subcutaneous syringe RxNorm: 091136 0.3 Milliliter(s) SQ Q12H 03/19/2017 03/20/2017 In active Lovenox 30 mg/0.3 mL subcutaneous syringe RxNorm: 714766 0.3 Milliliter(s) SQ Q12H 03/16/2017 03/18/2017 In active clonazepam 0.5 mg ta blet RxNorm: 603292 1 Tablet(s) PO BID 03/02/2017 10/03/2018 Inactive Lovenox 30 mg/0.3 mL subcutaneous syringe RxNorm: 141953 1 injection SQ BID do NOT take the night time dose the day before surgery, or the morning dose the day of surgery 03/01/2017 03/07/2017 Inactive Lovenox 30 mg/0.3 mL subcutaneous syringe RxNorm: 550496 1 injection SQ BID 03/01/2017 02/28/2017 In active Detrol LA 4 mg capsu le,extended release RxNorm: 886320 TAKE 1 CAPSULE BY JAVON TH ONCE DAILY 02/19/2017 05/09/2017 Inactive Generic For:DETROL LA 4MG C AP 02/19/2017 2:36:00 PM hydrocodone 5 mg-humberto taminophen 325 mg tablet RxNorm: 179981 1-2 Tablet(s) PO Q6 P RN 02/04/2017 No Stop Date Active Zetia 10 mg tablet RxNorm: 344753 TAKE 1 TABLET BY MOUTH DAILY 01/25/2017 04/13/2018 Inactive 01/23/2017 9:03:48 AM omeprazole 20 mg cap sean,delayed release RxNorm: 312579 TAKE 1 CAPSULE BY JAVON TH EVERY DAY 01/25/2017 07/21/2017 Inactive Generic For:PRILOSEC 20MG 01/23/2017 9: 03:45 AM Coumadin 4 mg tablet RxNorm: 303575 TAKE 1 TABLET BY MOUTH THREE TIMES PER W NISQUALLY (WEDNESDAY, WEDNESDAY AND WEDNESDAY) 01/25/2017 04/22/2017 Inactive Generic For:COUMADIN 4MG 01/23/2017 9:03:51 AM sodium bicarbonate 6 50 mg tablet RxNorm: 007993 TAKE 2 TABLETS BY JAVON TH TWICE DAILY 12/24/2016 06/21/2017 In active 12/24/2016 9:09:27 AM Lasix 20 mg tablet RxNorm: 020590 1 Tablet(s) PO daily 12/24/2016 04/22/2017 Inactive Synthroid 137 mcg ta blet RxNorm: 235804 TAKE 1 TABLET BY MOUT H ONCE DAILY 11/24/2016 05/22/2017 In active Generic For:SYNTHROID 137MCG TAB 2016 9:04:37 AM Coumadin 4 mg tablet RxNorm: 858121 TAKE 1 TABLET BY MOUTH THREE TIMES PER W NISQUALLY (WEDNESDAY, WEDNESDAY AND WEDNESDAY) 11/24/2016 01/22/2017 Inactive Generic For:COUMADIN 4MG 11/24/2016 9:04:41 AM hydrocodone 5 mg-humberto taminophen 325 mg tablet RxNorm: 335432 1-2 Tablet(s) PO Q6 P RN 11/17/2016 02/03/2017 In active Carafate 1 gram tablet RxNorm: 309123 TAKE ONE TABLET BY MOUTH TWICE DAILY 10/27/2016 05/23/2017 In active Generic For:CARAFATE 1GM 10/26/2016 8:3 9:42 AM allopurinol 300 mg t ablet RxNorm: 641735 Tablet(s) TAKE 1 TABL ET BY MOUTH ONCE DAILY. 10/26/2016 04/22/2017 Inactive Lipitor 40 mg tablet RxNorm: 521303 1 Tablet(s) PO daily 09/25/2016 09/19/2017 Inactive Coumadin 4 mg tablet RxNorm: 104010 TAKE 1 TABLET BY MOUTH THREE TIMES PER W NISQUALLY (WEDNESDAY, WEDNESDAY AND WEDNESDAY) 09/25/2016 11/23/2016 Inactive Generic For:COUMADIN 4MG 09/25/2016 8:55:58 AM Zetia 10 mg tablet RxNorm: 935893 1 Tablet(s) PO daily 09/25/2016 01/22/2017 Inactive gave 1 month of samples clonazepam 0.5 mg ta blet RxNorm: 259749 1 Tablet(s) PO BID 09/21/2016 10/03/2018 Inactive Lasix 20 mg tablet RxNorm: 612779 1 Tablet(s) PO daily 09/15/2016 12/23/2016 Inactive potassium chloride 2 0 mEq/15 mL oral liquid RxNorm: 252522 Milliliter(s) 30 Milliliter(s) (40mEq) PO daily 09/15/2016 01/12/2017 Inactive Lasix 20 mg tablet RxNorm: 683721 2 Tablet(s) PO daily 09/10/2016 09/12/2016 Inactive Lasix 20 mg tablet RxNorm: 591412 1 Tablet(s) PO daily 08/28/2016 08/30/2016 Inactive Lasix 20 mg tablet RxNorm: 026385 1 Tablet(s) PO daily 08/20/2016 08/22/2016 Inactive Detrol LA 4 mg capsu le,extended release RxNorm: 786308 TAKE 1 CAPSULE BY JAVON TH ONCE DAILY 07/27/2016 02/18/2017 Inactive Generic For:DETROL LA 4MG C AP 07/27/2016 9:08:27 AM Coumadin 4 mg tablet RxNorm: 067082 1 Tablet(s) PO 3 x week e th and sun 07/27/2016 09/24/2016 In active omeprazole 20 mg cap sean,delayed release RxNorm: 018631 Capsule(s) PO TAKE 1 CAPSULE BY MOUTH ONCE DAILY 07/27/2016 01/22/2017 Inactive venlafaxine ER 75 mg capsule,extended release 24 hr RxNorm: 964375 1 Capsule(s) PO daily 06/29/2016 06/21/2017 Inactive sodium bicarbonate 6 50 mg tablet RxNorm: 582856 TAKE 2 TABLETS BY JAVON TH TWICE DAILY 06/29/2016 12/23/2016 In active 06/27/2016 9:05:39 AM Coumadin 4 mg tablet RxNorm: 401420 1 Tablet(s) PO 3 x week tue thur and sun 06/09/2016 06/08/2016 In active Coumadin 4 mg tablet RxNorm: 870810 1 Tablet(s) PO 3 x week jyothi posadas 06/09/2016 07/26/2016 In active Zetia 10 mg tablet RxNorm: 974367 1 Tablet(s) PO daily 06/09/2016 06/08/2016 Inactive gave 1 month of samples Zetia 10 mg tablet RxNorm: 215620 1 Tablet(s) PO daily 06/09/2016 09/24/2016 Inactive gave 1 month of samples Effexor 75 mg tablet RxNorm: 477113 1 Tablet(s) PO daily 06/08/2016 06/28/2016 Inactive spironolactone 25 mg tablet RxNorm: 785991 1 Tablet(s) PO daily 06/08/2016 05/23/2017 Inactive Synthroid 137 mcg ta blet RxNorm: 764309 1 Tablet(s) PO daily 05/07/2016 11/02/2016 Inactive allopurinol 300 mg t ablet RxNorm: 047945 Tablet(s) TAKE 1 TABL ET BY MOUTH ONCE DAILY. 04/28/2016 10/24/2016 Inactive clonazepam 0.5 mg ta blet RxNorm: 016787 1 Tablet(s) PO BID 04/20/2016 10/03/2018 Inactive Flonase Allergy Reli ef 50 mcg/actuation nasal spray,suspension RxNorm: 3433156 1 [place] NASAL BID 04/02/2016 No Stop Date Active Zithromax Z-Thomas 250 mg tablet RxNorm: 536261 Tablet(s) PO 04/02/2016 08/27/2016 Inactive cetirizine 10 mg tablet RxNorm: 5387373 1 Tablet(s) PO daily 04/02/2016 05/01/2016 Inactive Carafate 1 gram tablet RxNorm: 072990 Tablet(s) TAKE 1 TABLET TWICE A DAY FOR 30 DAYS 03/30/2016 10/25/2016 Inactive Generic For:CARAFATE 1GM 02/08/2015 12:3 6:39 PM Plavix 75 mg tablet RxNorm: 675825 1 Tablet(s) PO daily 03/11/2016 09/06/2016 Inactive sodium bicarbonate 6 50 mg tablet RxNorm: 118932 Tablet(s) 2 Tablet(s) PO BID 02/28/2016 06/26/2016 In active omeprazole 20 mg cap sean,delayed release RxNorm: 035075 Capsule(s) PO TAKE 1 CAPSULE BY MOUTH ONCE DAILY 01/31/2016 07/26/2016 Inactive Fish Oil 1,000 mg ca psule RxNorm: 1 Capsule(s) PO BID 01/14/2016 No Stop Date Active Synthroid 137 mcg ta blet RxNorm: 420805 1 Tablet(s) PO daily 01/14/2016 05/06/2016 Inactive Detrol LA 4 mg capsu le,extended release RxNorm: 223985 TAKE 1 CAPSULE BY JAVON TH ONCE DAILY 12/30/2015 07/26/2016 Inactive Generic For:DETROL LA 4MG C AP 12/30/2015 9:11:01 AM potassium chloride 2 0 mEq/15 mL oral liquid RxNorm: 682964 Milliliter(s) 30 Milliliter(s) (40mEq) PO daily 12/02/2015 03/30/2016 Inactive sodium bicarbonate 6 50 mg tablet RxNorm: 383270 Tablet(s) 2 Tablet(s) PO BID 10/31/2015 02/27/2016 In active Lipitor 40 mg tablet RxNorm: 599498 1 Tablet(s) PO daily 10/09/2015 09/24/2016 Inactive sodium bicarbonate 6 50 mg tablet RxNorm: 018170 2 Tablet(s) PO BID 10/01/2015 10/30/2015 Inactive allopurinol 300 mg t ablet RxNorm: 755426 TAKE 1 TABLET BY MOUT H ONCE DAILY. 10/01/2015 04/27/2016 In active Generic For:ZYLOPRIM 300 MG TABLET 09/19 9:21:15 AM clonazepam 0.5 mg ta blet RxNorm: 476455 1 Tablet(s) PO BID 09/30/2015 04/19/2016 Inactive Coumadin 5 mg tablet RxNorm: 166688 1 Tablet(s) PO daily 09/27/2015 05/31/2017 Inactive Generic For:COUMADIN 5MG TAB N O T I C E PRESCRIPTION PREVIOUSLY AUTHORIZED BY DOCTOR:BOBBY ZULETA Synthroid 125 mcg ta blet RxNorm: 795562 1 Tablet(s) PO daily 09/27/2015 09/26/2015 Inactive Synthroid 125 mcg ta blet RxNorm: 179941 1 Tablet(s) PO daily 09/27/2015 01/13/2016 Inactive Carafate 1 gram tablet RxNorm: 699420 Tablet(s) TAKE 1 TABLET TWICE A DAY FOR 30 DAYS 09/02/2015 03/29/2016 Inactive Generic For:CARAFATE 1GM 02/08/2015 12:3 6:39 PM sodium bicarbonate 6 50 mg tablet RxNorm: 215331 2 Tablet(s) PO BID 09/02/2015 09/30/2015 Inactive Prilosec 20 mg capsu le,delayed release RxNorm: 950530 TAKE 1 CAPSULE BY JAVON TH ONCE DAILY 08/02/2015 01/28/2016 Inactive Generic For:PRILOSEC 20MG 08/02/2015 10:03:09 AM N O T I C E PRESCRIPTION PREVIOUSLY AUTHORIZED BY DOCTOR:BOBBY ZULETA Zyrtec 10 mg capsule RxNorm: 4071540 1 Capsule(s) PO daily 07/15/2015 08/13/2015 Inactive Keflex 500 mg capsule RxNorm: 170336 1 Capsule(s) PO TID 07/15/2015 07/21/2015 Inactive cetirizine 10 mg cap sean RxNorm: 9718205 1 Capsule(s) PO daily 07/15/2015 08/13/2015 Inactive hydrocodone 5 mg-humberto taminophen 325 mg tablet RxNorm: 263538 1-2 Tablet(s) PO Q6 P RN 06/10/2015 11/16/2016 In active sodium bicarbonate 6 50 mg tablet RxNorm: 064417 2 Tablet(s) PO BID 06/03/2015 08/31/2015 Inactive Detrol LA 4 mg capsu le,extended release RxNorm: 407416 TAKE 1 CAPSULE BY JAVON ONCE DAILY 06/03/2015 12/29/2015 Inactive Generic For:DETROL LA 4MG C AP N O T I C E PRESCRIPTION PREVIOUSLY AUTHORIZED BY DOCTOR:BOBBY ZULETA atenolol 50 mg tablet RxNorm: 791798 1 Tablet(s) PO daily TAKE 1 TABLET BY MO [facility] DAILY 05/07/2015 08/23/2017 Inactive Generic For:TENORMIN 50MG 05/04/2015 9:07:22 AM spironolactone 25 mg tablet RxNorm: 460104 1 Tablet(s) PO daily 05/06/2015 06/07/2016 Inactive venlafaxine ER 75 mg capsule,extended release 24 hr RxNorm: 547693 1 Capsule(s) PO daily 05/04/2015 06/28/2016 Inactive atenolol 50 mg tablet RxNorm: 384849 TAKE 1 TABLET BY MOUTH DAILY 05/04/2015 05/06/2015 Inactive Generic For:TENORMIN 50MG 05/04/2015 9: 07:22 AM Synthroid 150 mcg ta blet RxNorm: 552557 TAKE 1 TABLET BY MOUT H ONCE DAILY. 04/05/2015 09/26/2015 In active Generic For:SYNTHROID 150MCG TAB 2014 4:45:40 PM N O T I C E PRESCRIPTION PREVIOUSLY AUTHORIZED BY DOCTOR:BOBBY ZULETA Effexor 75 mg tablet RxNorm: 432140 1 Tablet(s) PO daily 04/05/2015 07/03/2015 Inactive Coumadin 5 mg tablet RxNorm: 326773 TAKE 1 AND 1/2 TABLETS BY MOUTH ONCE MYRANDA LY 04/04/2015 09/26/2015 In active Generic For:COUMADIN 5MG TAB N O T I C E PRESCRIPTION PREVIOUSLY AUTHORIZED BY DOCTOR:BOBBY ZULETA clonazepam 0.5 mg ta blet RxNorm: 295873 1 Tablet(s) PO BID 03/13/2015 11/05/2015 Inactive sodium bicarbonate 6 50 mg tablet RxNorm: 749752 2 Tablet(s) PO BID 03/08/2015 06/02/2015 Inactive allopurinol 300 mg t ablet RxNorm: 220260 TAKE 1 TABLET BY MOUT H ONCE DAILY. 03/05/2015 09/30/2015 In active N O T I C E PRESCRIPTION PREVIOUSLY A UTHORIZED BY DOCTOR:BOBBY ZULETA Plavix 75 mg tablet RxNorm: 275753 1 Tablet(s) PO daily 02/12/2015 09/09/2015 Inactive clonazepam 0.5 mg ta blet RxNorm: 326230 1 Tablet(s) PO BID 02/11/2015 03/11/2015 Inactive Carafate 1 gram tablet RxNorm: 902566 TAKE 1 TABLET TWICE A DAY FOR 30 DAYS 02/08/2015 02/07/2015 In active Generic For:CARAFATE 1GM 02/08/2015 12:3 6:39 PM Carafate 1 gram tablet RxNorm: 013446 Tablet(s) TAKE 1 TABLET TWICE A DAY FOR 30 DAYS 02/08/2015 09/01/2015 Inactive Generic For:CARAFATE 1GM 02/08/2015 12:3 6:39 PM potassium chloride 2 0 mEq/15 mL oral liquid RxNorm: 533405 30 Milliliter(s) (40m Eq) PO daily 02/05/2015 12/01/2015 Inactive atenolol 50 mg tablet RxNorm: 525672 1 Tablet(s) PO daily 02/04/2015 05/03/2015 Inactive [SAVINGS FOR NON-COVERED DRUGS -- BIN: 9325, PCN: [email or web address], Group: XXXXX, ID# [id number], Questions: . THIS IS NOT INSURANCE.] potassium chloride 2 0 mEq/15 mL oral liquid RxNorm: 722888 30 Milliliter(s) (40m Eq) PO daily 01/08/2015 02/04/2015 Inactive potassium chloride 2 0 mEq/15 mL oral liquid RxNorm: 272431 30 Milliliter(s) (40m Eq) PO daily 12/07/2014 01/07/2015 Inactive atenolol 50 mg tablet RxNorm: 457297 1 Tablet(s) PO daily 11/09/2014 11/08/2014 Inactive atenolol 50 mg tablet RxNorm: 686674 1 Tablet(s) PO daily 11/09/2014 02/03/2015 Inactive [SAVINGS FOR NON-COVERED DRUGS -- BIN:00 040, PCN: [email or web address], Group: XXXXX, ID# [id number], Questions: . THIS IS NOT INSURANCE.] Voltaren 1 % topical gel RxNorm: 020626 TOP No St art Date Active verapamil ER (HS) 24 0 mg tablet,extended release 24 hr RxNorm: 900436 1 Tablet(s) PO daily No Start Date Active aspirin 81 mg tablet RxNorm: 562218 1 Tablet(s) PO daily No Start Date Active Zofran 4 mg tablet RxNorm: 596424 1 Tablet(s) PO PRN No Start Date Active B12 1000 mcg RxNorm: 1 Tablet(s) PO daily No Start Date Active magnesium oxide 400 mg capsule RxNorm: 497891 2 Capsule(s) PO BID No Start Date Active Synthroid 150 mcg ta blet RxNorm: 553731 1 Tablet(s) PO daily No Start Date 04/04/2015 Inactive Coumadin 5 mg tablet RxNorm: 798694 1 Tablet(s) PO daily No Start Date 04/03/2015 Inactive cranberry 1,000 mg c apsule RxNorm: 600536 1 Capsule(s) PO daily No Start Date 04/13/2018 Inactive allopurinol 300 mg t ablet RxNorm: 925122 1 Tablet(s) PO daily No Start Date 03/04/2015 Inactive Prilosec 20 mg capsu le,delayed release RxNorm: 463146 1 Capsule(s) PO PRN No Start Date 08/01/2015 Inactive potassium chloride 2 0 mEq/15 mL oral liquid RxNorm: 067155 30 Milliliter(s) (40m Eq) PO daily No Start Date 12/06/2014 Inactive atenolol 50 mg tablet RxNorm: 906674 1 Tablet(s) PO daily No Start Date 08/29/2017 Inactive Lipitor 40 mg tablet RxNorm: 792985 1 Tablet(s) PO daily No Start Date 09/19/2017 Inactive Effexor 75 mg tablet RxNorm: 131877 1 Tablet(s) PO daily No Start Date 04/04/2015 Inactive Carafate 1 gram tablet RxNorm: 428873 1 Tablet(s) PO BID No Start Date 02/07/2015 Inactive clonazepam 0.5 mg ta blet RxNorm: 070704 1 Tablet(s) PO BID No Start Date 02/10/2015 Inactive Plavix 75 mg tablet RxNorm: 269862 1 Tablet(s) PO daily No Start Date 02/11/2015 Inactive sodium bicarbonate 6 50 mg tablet RxNorm: 834814 2 Tablet(s) PO BID No Start Date 09/01/2015 Inactive Lovenox 30 mg/0.3 mL subcutaneous syringe RxNorm: 083211 0.3 Milliliter(s) SQ Q12H No Start Date 03/15/2017 Inactive Fish Oil 1,000 mg ca psule RxNorm: 1 Capsule(s) PO daily No Start Date 01/13/2016 Inactive Detrol LA 4 mg capsu le,extended release RxNorm: 949269 1 Capsule(s) PO daily No Start Date 06/02/2015 Inactive Medication Administered Medication Codes Instruc tions Start Date Status Kenalog 40 mg/mL suspension for injection RxNorm: 7682342 Milliliter 09/02/2018 No longer Active Immunizations Vaccine Codes Date Status SHINGARIX CVX: 121 03/23 completed Assessments Condition Codes Effectiv e Dates Mixed hyperlipidemia ICD-10: E78.2 ICD-9: 272.4 10/05/2018 Other acute sinusitis ICD-10: J01.80 ICD-9: 461.8 09/02/2018 Other allergic rhinitis ICD-10: J30. 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 ICD-9: V58.69 [...] Code Item Item Code Result Date Pt Dbv9622 PT 35.0 seconds 12/01/2018 Pt Ttx0395 INR 3.5 12/01/2018 Pt Nnv2948 Low Intensity - 1.5-2.0 12/01/2018 Pt Svo4605 Mod intensity - 2.0-3.0 12/01/2018 Pt Yut7321 Hi intensity - 3.0-4.0 12/01/2018 Pt Uqy9139 PT 26.3 seconds 10/13/2018 Pt Oia4203 INR 2.5 10/13/2018 Pt Ise9851 Low Intensity - 1.5-2.0 10/13/2018 Pt Gkf1012 Mod intensity - 2.0-3.0 10/13/2018 Pt Ztq5851 Hi intensity - 3.0-4.0 10/13/2018 Lipid Ord30 CHOL 180 mg/dL 10/07/2018 Lipid Ord30 HDL 74.0 mg/dl 10/07/2018 Lipid Ord30 TRIG 111 mg/dL 10/07/2018 Lipid Ord30 LDL 84 mg/dL 10/07/2018 Lipid Ord30 C/HDL 2.4 Ratio 10/07/2018 Pt Kfe4394 PT 38.1 seconds 10/07/2018 Pt Vpg0917 INR 3.9 10/07/2018 Pt Kie5562 Low Intensity - 1.5-2.0 10/07/2018 Pt Jfi1435 Mod intensity - 2.0-3.0 10/07/2018 Pt Uvy8594 Hi intensity - 3.0-4.0 10/07/2018 Tsh Ord6 TSH (3rd IS) 0.43 uIU/mL 09/02/2018 Comp Metabolic Lxd726 NA 136 mEq/L 09/02/2018 Comp Metabolic Jxj419 K 4.1 mEq/L 09/02/2018 Comp Metabolic Ikg948 CL 103 mEq/L 09/02/2018 Comp Metabolic Rso857 CO2 20.0 mEq/L 09/02/2018 Comp Metabolic Hyz655 AN ION GAP 17 09/02/2018 Comp Metabolic Pgr371 GL UCOSE 124 mg/dL 09/02/2018 Comp Metabolic Gtu027 Cr eat 1.0 mg/dL 09/02/2018 Comp Metabolic Zfm573 eG FR 57 ml/min/1.73m2 09/02 Comp Metabolic Vkh156 BUN 24 mg/dL 09/02/2018 Comp Metabolic Xth104 B/ C Ratio 23.8 Ratio 09/02/2018 Comp Metabolic Img151 CA LCIUM 9.5 mg/dL 09/02/2018 Comp Metabolic Qof631 AL K PHOS 64 U/L 09/02/2018 Comp Metabolic Tnm039 T(SGOT) 24 U/L 09/02/2018 Comp Metabolic Xmo985 AL T(SGPT) 23 U/L 09/02/2018 Comp Metabolic Wfl933 BI LI T 0.5 mg/dL 09/02/2018 Comp Metabolic Jwt233 AL BUMIN 4.2 g/dL 09/02/2018 Comp Metabolic Eyb595 TP RO 7.4 g/dL 09/02/2018 Comp Metabolic Oyk099 GL OB 3.2 g/dL 09/02/2018 Comp Metabolic Ugs081 A/ G Ratio 1.3 Ratio 09/02/2018 Comp Metabolic Fuw014 Os mo 277 mOsmo 09/02/2018 Pt Awh7900 PT 40.6 seconds 09/02/2018 Pt Axc6719 INR 4.2 09/02/2018 Pt Rih9005 Low Intensity - 1.5-2.0 09/02/2018 Pt Rnz5974 Mod intensity - 2.0-3.0 09/02/2018 Pt Gaa0772 Hi intensity - 3.0-4.0 09/02/2018 Free T4 Hxi369 FREE T4 1.51 ng/dL 09/02/2018 Magnesium Ord90 Mag 1.8 mg/dL 09/02/2018 Pt Xus5188 PT 29.2 seconds 08/05/2018 Pt Lvq3484 INR 2.8 08/05/2018 Pt Zyz0835 Low Intensity - 1.5-2.0 08/05/2018 Pt Ytg3416 Mod intensity - 2.0-3.0 08/05/2018 Pt Bhf7354 Hi intensity - 3.0-4.0 08/05/2018 Pt Wel2402 PT 30.2 seconds 07/25/2018 Pt Lho3949 INR 2.9 07/25/2018 Pt Pjp7383 Low Intensity - 1.5-2.0 07/25/2018 Pt Zoo2907 Mod intensity - 2.0-3.0 07/25/2018 Pt Ypx2270 Hi intensity - 3.0-4.0 07/25/2018 Pt Hzf7457 PT 25.2 seconds 07/19/2018 Pt Fhg7148 INR 2.3 07/19/2018 Pt Gvl5247 Low Intensity - 1.5-2.0 07/19/2018 Pt Fme6514 Mod intensity - 2.0-3.0 07/19/2018 Pt Eff0148 Hi intensity - 3.0-4.0 07/19/2018 Pt Fyk2929 PT 17.4 seconds 07/15/2018 Pt Yvb2780 INR 1.5 07/15/2018 Pt Nmn0553 Low Intensity - 1.5-2.0 07/15/2018 Pt Wjo1642 Mod intensity - 2.0-3.0 07/15/2018 Pt Uep0044 Hi intensity - 3.0-4.0 07/15/2018 Pt Fed3792 PT 17.8 seconds 07/08/2018 Pt Czk2546 INR 1.5 07/08/2018 Pt Pvh0967 Low Intensity - 1.5-2.0 07/08/2018 Pt Sjq1719 Mod intensity - 2.0-3.0 07/08/2018 Pt Cpa8140 Hi intensity - 3.0-4.0 07/08/2018 Pt Erk1197 PT 19.2 seconds 07/01/2018 Pt Mey9775 INR 1.7 07/01/2018 Pt Wfx6264 Low Intensity - 1.5-2.0 07/01/2018 Pt Mra4040 Mod intensity - 2.0-3.0 07/01/2018 Pt Ewp8320 Hi intensity - 3.0-4.0 07/01/2018 Pt Ioe0957 PT 17.4 seconds 06/23/2018 Pt Kth2098 INR 1.5 06/23/2018 Pt Gqf0250 Low Intensity - 1.5-2.0 06/23/2018 Pt Ndn1707 Mod intensity - 2.0-3.0 06/23/2018 Pt Fql3683 Hi intensity - 3.0-4.0 06/23/2018 Pt Rbx4170 PT 18.4 seconds 06/17/2018 Pt Vss8958 INR 1.6 06/17/2018 Pt Ezf3387 Low Intensity - 1.5-2.0 06/17/2018 Pt Iog4511 Mod intensity - 2.0-3.0 06/17/2018 Pt Lls9068 Hi intensity - 3.0-4.0 06/17/2018 Sed Rate [...] 30.4 pg 06/08/2018 Cbc With Differential Ord2 [place]% 9.4 % 06/08/2018 Cbc With Differential Ord2 [...] 1.20 K/ul 06/08/2018 Cbc With Differential Ord2 [place] ABS# 0.5 K/ul 06/08/2018 Cbc With Differential Ord2 Eos ABS# 0.1 K/ul 06/08/2018 Cbc With Differential Ord2 Baso ABS# 0.1 K/ul 06/08/2018 C-Reactive Protein Qnt Crqnt CRP 0.1 mg/dl 06/08/2018 Pt Pnb2040 PT 17.6 seconds 06/08/2018 Pt Fcw1596 INR 1.5 06/08/2018 Pt Lnt9749 Low Intensity - 1.5-2.0 06/08/2018 Pt Fxc8829 Mod intensity - 2.0-3.0 06/08/2018 Pt Jux8321 Hi intensity - 3.0-4.0 06/08/2018 Pt Ylh2929 PT 16.8 seconds 05/10/2018 Pt Jtx2123 INR 1.4 05/10/2018 Pt Qpm1999 Low Intensity - 1.5-2.0 05/10/2018 Pt Ffe4626 Mod intensity - 2.0-3.0 05/10/2018 Pt Riu2512 Hi intensity - 3.0-4.0 05/10/2018 Pt Tyt6323 PT 16.7 seconds 05/04/2018 Pt Nrl1391 INR 1.4 05/04/2018 Pt Fhv5635 Low Intensity - 1.5-2.0 05/04/2018 Pt Qbh8916 Mod intensity - 2.0-3.0 05/04/2018 Pt Mul8110 Hi intensity - 3.0-4.0 05/04/2018 Free T4 Wlz910 FREE T4 1.09 ng/dL 04/14/2018 Tsh Ord6 TSH (3rd IS) 2.36 uIU/mL 04/14/2018 Pt Yuq1572 PT 20.3 seconds 04/14/2018 Pt Wrb7321 INR 1.8 04/14/2018 Pt Ttp2692 Low Intensity - 1.5-2.0 04/14/2018 Pt Rcn8493 Mod intensity - 2.0-3.0 04/14/2018 Pt Pjv8510 Hi intensity - 3.0-4.0 04/14/2018 Lipid Ord30 CHOL 149 mg/dL 04/14/2018 Lipid Ord30 HDL 49.0 mg/dl 04/14/2018 Lipid Ord30 TRIG 161 mg/dL 04/14/2018 Lipid Ord30 LDL 68 mg/dL 04/14/2018 Lipid Ord30 C/HDL 3.0 Ratio 04/14/2018 %Hba1C Bdq479 % HbA1c 71261-2 5.9 % 04/14/2018 %Hba1C Lkv593 Gluc Ave 123 mg/dL 04/14/2018 Comp Metabolic Awc185 NA 140 mEq/L 04/14/2018 Comp Metabolic Bpe124 K 4.1 mEq/L 04/14/2018 Comp Metabolic Ibw524 CL 105 mEq/L 04/14/2018 Comp Metabolic Kdr151 CO2 28.0 mEq/L 04/14/2018 Comp Metabolic Qdk992 AN ION GAP 11 04/14/2018 Comp Metabolic Mlb977 GL UCOSE 112 mg/dL 04/14/2018 Comp Metabolic Ckl135 Cr eat 1.0 mg/dL 04/14/2018 Comp Metabolic Tkv956 eG FR 58 ml/min/1.73m2 04/14 Comp Metabolic Ilp289 BUN 20 mg/dL 04/14/2018 Comp Metabolic Jte436 B/ C Ratio 20.2 Ratio 04/14/2018 Comp Metabolic Zlf712 CA LCIUM 10.0 mg/dL 04/14/2018 Comp Metabolic Plk298 AL K PHOS 51 U/L 04/14/2018 Comp Metabolic Ymc883 T(SGOT) 24 U/L 04/14/2018 Comp Metabolic Kzw794 AL T(SGPT) 21 U/L 04/14/2018 Comp Metabolic Xgv723 BI LI T 0.8 mg/dL 04/14/2018 Comp Metabolic Cix328 AL BUMIN 4.2 g/dL 04/14/2018 Comp Metabolic Gil349 TP RO 7.1 g/dL 04/14/2018 Comp Metabolic Kns111 GL OB 2.9 g/dL 04/14/2018 Comp Metabolic Gbk614 A/ G Ratio 1.5 Ratio 04/14/2018 Comp Metabolic Rac365 Os mo 283 mOsmo 04/14/2018 Cbc With [...] 30.7 pg 04/14/2018 Cbc With Differential Ord2 [place]% 10.6 % 04/14/2018 Cbc With Differential Ord2 [...] 1.18 K/ul 04/14/2018 Cbc With Differential Ord2 [place] ABS# 0.5 K/ul 04/14/2018 Cbc With Differential Ord2 Eos ABS# 0.2 K/ul 04/14/2018 Cbc With Differential Ord2 Baso ABS# 0.1 K/ul 04/14/2018 Pt Exw3192 PT 29.3 seconds 02/11/2018 Pt Hps8275 INR 2.8 02/11/2018 Pt Bzb4250 Low Intensity - 1.5-2.0 02/11/2018 Pt Cjp2664 Mod intensity - 2.0-3.0 02/11/2018 Pt Exy5250 Hi intensity - 3.0-4.0 02/11/2018 Comp Metabolic Yps800 NA 141 mEq/L 01/05/2018 Comp Metabolic Urm402 K 3.7 mEq/L 01/05/2018 Comp Metabolic Spq894 CL 102 mEq/L 01/05/2018 Comp Metabolic Tgd176 CO2 29.0 mEq/L 01/05/2018 Comp Metabolic Rfq791 AN ION GAP 14 01/05/2018 Comp Metabolic Aoq362 GL UCOSE 136 mg/dL 01/05/2018 Comp Metabolic Lpk105 Cr eat 1.0 mg/dL 01/05/2018 Comp Metabolic Ijo507 eG FR 61 ml/min/1.73m2 01/05 Comp Metabolic Nuh574 BUN 22 mg/dL 01/05/2018 Comp Metabolic Lel115 B/ C Ratio 22.9 Ratio 01/05/2018 Comp Metabolic Ser915 CA LCIUM 9.7 mg/dL 01/05/2018 Comp Metabolic Xlp953 AL K PHOS 57 U/L 01/05/2018 Comp Metabolic Izn053 T(SGOT) 21 U/L 01/05/2018 Comp Metabolic Pkq231 AL T(SGPT) 19 U/L 01/05/2018 Comp Metabolic Vgg214 BI LI T 0.9 mg/dL 01/05/2018 Comp Metabolic Egj457 AL BUMIN 4.1 g/dL 01/05/2018 Comp Metabolic Bch075 TP RO 7.1 g/dL 01/05/2018 Comp Metabolic Mxf329 GL OB 3.0 g/dL 01/05/2018 Comp Metabolic Nnv173 A/ G Ratio 1.4 Ratio 01/05/2018 Comp Metabolic Deb649 Os mo 287 mOsmo 01/05/2018 Free T4 Tib990 FREE T4 1.05 ng/dL 01/05/2018 %Hba1C Skp852 % HbA1c 17763-7 6.0 % 01/05/2018 %Hba1C Ard483 Gluc Ave 126 mg/dL 01/05/2018 Cbc With [...] 30.6 pg 01/05/2018 Cbc With Differential Ord2 [place]% 10.5 % 01/05/2018 Cbc With Differential Ord2 [...] 1.27 K/ul 01/05/2018 Cbc With Differential Ord2 [place] ABS# 0.5 K/ul 01/05/2018 Cbc With Differential Ord2 Eos ABS# 0.2 K/ul 01/05/2018 Cbc With Differential Ord2 Baso ABS# 0.1 K/ul 01/05/2018 Pt Jfn9811 PT 20.7 seconds 01/05/2018 Pt Qwp2819 INR 1.8 01/05/2018 Pt Mng6437 Low Intensity - 1.5-2.0 01/05/2018 Pt Mni7367 Mod intensity - 2.0-3.0 01/05/2018 Pt Fxw0007 Hi intensity - 3.0-4.0 01/05/2018 Tsh Ord6 TSH (3rd IS) 2.34 uIU/mL 01/05/2018 Lipid Ord30 CHOL 156 mg/dL 01/05/2018 Lipid Ord30 HDL 48.0 mg/dl 01/05/2018 Lipid Ord30 TRIG 207 mg/dL 01/05/2018 Lipid Ord30 LDL 67 mg/dL 01/05/2018 Lipid Ord30 C/HDL 3.3 Ratio 01/05/2018 Pt Oyo6687 PT 28.3 seconds 11/26/2017 Pt Hkw5275 INR 2.6 11/26/2017 Pt Rij8160 Low Intensity - 1.5-2.0 11/26/2017 Pt Jws6342 Mod intensity - 2.0-3.0 11/26/2017 Pt Chc3430 Hi intensity - 3.0-4.0 11/26/2017 Pt Zzi6940 PT 36.5 seconds 11/19/2017 Pt Aau0402 INR 3.6 11/19/2017 Pt Wks6026 Low Intensity - 1.5-2.0 11/19/2017 Pt Non7109 Mod intensity - 2.0-3.0 11/19/2017 Pt Jzg8544 Hi intensity - 3.0-4.0 11/19/2017 Pt Ocx7600 PT 22.9 seconds 10/15/2017 Pt Srk3383 INR 2.0 10/15/2017 Pt Elj0021 Low Intensity - 1.5-2.0 10/15/2017 Pt Tmy3204 Mod intensity - 2.0-3.0 10/15/2017 Pt Cab9020 Hi intensity - 3.0-4.0 10/15/2017 Pt Zji1124 PT 25.9 seconds 10/01/2017 Pt Ehw3932 INR 2.4 10/01/2017 Pt Bfy8064 Low Intensity - 1.5-2.0 10/01/2017 Pt Rjq3006 Mod intensity - 2.0-3.0 10/01/2017 Pt Fds4817 Hi intensity - 3.0-4.0 10/01/2017 Pt Mel5075 PT 20.6 seconds 09/24/2017 Pt Mmn2932 INR 1.8 09/24/2017 Pt Grh6911 Low Intensity - 1.5-2.0 09/24/2017 Pt Vqb2493 Mod intensity - 2.0-3.0 09/24/2017 Pt Xix4423 Hi intensity - 3.0-4.0 09/24/2017 Pt Req9224 PT 21.0 seconds 09/15/2017 Pt Mpp0664 INR 1.8 09/15/2017 Pt Hud8442 Low Intensity - 1.5-2.0 09/15/2017 Pt Ssk1609 Mod intensity - 2.0-3.0 09/15/2017 Pt Nxw5412 Hi intensity - 3.0-4.0 09/15/2017 Pt Drf4626 PT 19.0 seconds 09/03/2017 Pt Cfq6140 INR 1.6 09/03/2017 Pt Cnd1425 Low Intensity - 1.5-2.0 09/03/2017 Pt Xhx1709 Mod intensity - 2.0-3.0 09/03/2017 Pt Ptp4382 Hi intensity - 3.0-4.0 09/03/2017 Pt Zri3889 PT 17.6 seconds 08/23/2017 Pt Rne2467 INR 1.5 08/23/2017 Pt Cvn6148 Low Intensity - 1.5-2.0 08/23/2017 Pt Tam5100 Mod intensity - 2.0-3.0 08/23/2017 Pt Pfv0870 Hi intensity - 3.0-4.0 08/23/2017 Pt Fnn2122 PT 12.7 seconds 08/20/2017 Pt Rip7609 INR 1.0 08/20/2017 Pt Qxd6190 Low Intensity - 1.5-2.0 08/20/2017 Pt Xwk8884 Mod intensity - 2.0-3.0 08/20/2017 Pt Lsi2691 Hi intensity - 3.0-4.0 08/20/2017 Pt Inm7698 PT 12.9 seconds 08/17/2017 Pt Xll2090 INR 1.0 08/17/2017 Pt Cmf1430 Low Intensity - 1.5-2.0 08/17/2017 Pt Jqo7054 Mod intensity - 2.0-3.0 08/17/2017 Pt Iri9065 Hi intensity - 3.0-4.0 08/17/2017 Pt Tcv4656 PT 18.5 seconds 08/10/2017 Pt Xou5242 INR 1.6 08/10/2017 Pt Cyx4807 Low Intensity - 1.5-2.0 08/10/2017 Pt Zoh8854 Mod intensity - 2.0-3.0 08/10/2017 Pt Zab8099 Hi intensity - 3.0-4.0 08/10/2017 Tsh Ord6 [...] 29.3 pg 05/27/2017 Cbc With Differential Ord2 [place]% 8.1 % 05/27/2017 Cbc With Differential Ord2 [...] 1.11 K/ul 05/27/2017 Cbc With Differential Ord2 [place] ABS# 0.6 K/ul 05/27/2017 Cbc With Differential Ord2 Eos ABS# 0.2 K/ul 05/27/2017 Cbc With Differential Ord2 Baso ABS# 0.1 K/ul 05/27/2017 Pt Iks7212 PT 28.2 seconds 05/27/2017 Pt Etn0159 INR 2.6 05/27/2017 Pt Jak8310 Low Intensity - 1.5-2.0 05/27/2017 Pt Wgw4978 Mod intensity - 2.0-3.0 05/27/2017 Pt Emp6386 Hi intensity - 3.0-4.0 05/27/2017 Lipid Ord30 CHOL 167 mg/dL 05/27/2017 Lipid Ord30 HDL 49.0 mg/dl 05/27/2017 Lipid Ord30 TRIG 347 mg/dL 05/27/2017 Lipid Ord30 LDL 49 mg/dL 05/27/2017 Lipid Ord30 C/HDL 3.4 Ratio 05/27/2017 Magnesium Ord90 Mag 1.4 mg/dL 05/27/2017 %Hba1C Kkl303 % HbA1c 15008-8 5.9 % 05/27/2017 %Hba1C Cmy386 Gluc Ave 123 mg/dL 05/27/2017 Comp Metabolic Clg733 NA 138 mEq/L 05/27/2017 Comp Metabolic Ufb002 K 4.1 mEq/L 05/27/2017 Comp Metabolic Mmo265 CL 101 mEq/L 05/27/2017 Comp Metabolic Whg706 CO2 31.0 mEq/L 05/27/2017 Comp Metabolic Lzx166 AN ION GAP 10 05/27/2017 Comp Metabolic Vep002 GL UCOSE 117 mg/dL 05/27/2017 Comp Metabolic Kww265 Cr eat 0.9 mg/dL 05/27/2017 Comp Metabolic Npx406 eG FR 62 ml/min/1.73m2 05/27 Comp Metabolic Fnh492 BUN 25 mg/dL 05/27/2017 Comp Metabolic Spc415 B/ C Ratio 26.6 Ratio 05/27/2017 Comp Metabolic Bue119 CA LCIUM 9.5 mg/dL 05/27/2017 Comp Metabolic Joo930 AL K PHOS 73 U/L 05/27/2017 Comp Metabolic Aup481 T(SGOT) 18 U/L 05/27/2017 Comp Metabolic Crx510 AL T(SGPT) 12 U/L 05/27/2017 Comp Metabolic Vbe946 BI LI T 0.5 mg/dL 05/27/2017 Comp Metabolic Nfx071 AL BUMIN 4.1 g/dL 05/27/2017 Comp Metabolic Mzk952 TP RO 7.1 g/dL 05/27/2017 Comp Metabolic Xrz770 GL OB 3.0 g/dL 05/27/2017 Comp Metabolic Syx770 A/ G Ratio 1.3 Ratio 05/27/2017 Comp Metabolic Kvh433 Os mo 281 mOsmo 05/27/2017 Free T4 Tim988 FREE T4 0.91 ng/dL 05/27/2017 Pt Dti2061 PT 29.2 seconds 04/16/2017 Pt Kdx9701 INR 2.7 04/16/2017 Pt Qlo3794 Low Intensity - 1.5-2.0 04/16/2017 Pt Xhv6848 Mod intensity - 2.0-3.0 04/16/2017 Pt Vsc7951 Hi intensity - 3.0-4.0 04/16/2017 Pt Aem6328 PT 30.7 seconds 03/31/2017 Pt Dbh7568 INR 2.9 03/31/2017 Pt Dew7641 Low Intensity - 1.5-2.0 03/31/2017 Pt Cbt7280 Mod intensity - 2.0-3.0 03/31/2017 Pt Osv7834 Hi intensity - 3.0-4.0 03/31/2017 Pt Tna2863 PT 21.3 seconds 03/26/2017 Pt Pvf6998 INR 1.9 03/26/2017 Pt Cyr8264 Low Intensity - 1.5-2.0 03/26/2017 Pt Kdm8694 Mod intensity - 2.0-3.0 03/26/2017 Pt Mar3692 Hi intensity - 3.0-4.0 03/26/2017 Pt Syo1589 PT 19.8 seconds 03/22/2017 Pt Sbg2357 INR 1.7 03/22/2017 Pt Oxd2279 Low Intensity - 1.5-2.0 03/22/2017 Pt Yxn3113 Mod intensity - 2.0-3.0 03/22/2017 Pt Tom3779 Hi intensity - 3.0-4.0 03/22/2017 Pt Xko7628 PT 15.6 seconds 03/19/2017 Pt Dyh2097 INR 1.3 03/19/2017 Pt Cqm1490 Low Intensity - 1.5-2.0 03/19/2017 Pt Jfd0533 Mod intensity - 2.0-3.0 03/19/2017 Pt Yjz8001 Hi intensity - 3.0-4.0 03/19/2017 Pt Rzg3961 PT 13.7 seconds 03/15/2017 Pt Bts3023 INR 1.1 03/15/2017 Pt Efh6819 Low Intensity - 1.5-2.0 03/15/2017 Pt Olc3881 Mod intensity - 2.0-3.0 03/15/2017 Pt Eza5376 Hi intensity - 3.0-4.0 03/15/2017 Pt Oou2298 PT 25.8 seconds 01/28/2017 Pt Zlq8061 INR 2.4 01/28/2017 Pt Rns8207 Low Intensity - 1.5-2.0 01/28/2017 Pt Ptj2300 Mod intensity - 2.0-3.0 01/28/2017 Pt Bvu3901 Hi intensity - 3.0-4.0 01/28/2017 %Hba1C Yhz890 % HbA1c 71677-3 6.4 % 10/23/2016 %Hba1C Zmz784 Gluc Ave 137 mg/dL 10/23/2016 Comp Metabolic Twi865 NA 138 mEq/L 10/23/2016 Comp Metabolic Rgt965 K 3.4 mEq/L 10/23/2016 Comp Metabolic Upa878 CL 100 mEq/L 10/23/2016 Comp Metabolic Adx852 CO2 30.0 mEq/L 10/23/2016 Comp Metabolic Pfa833 AN ION GAP 11 10/23/2016 Comp Metabolic Don526 GL UCOSE 139 mg/dL 10/23/2016 Comp Metabolic Efz545 Cr eat 0.9 mg/dL 10/23/2016 Comp Metabolic Box010 eG FR 62 ml/min/1.73m2 10/23 Comp Metabolic Ybz129 BUN 22 mg/dL 10/23/2016 Comp Metabolic Oac953 B/ C Ratio 23.4 Ratio 10/23/2016 Comp Metabolic Gwg736 CA LCIUM 8.7 mg/dL 10/23/2016 Comp Metabolic Gqn022 AL K PHOS 66 U/L 10/23/2016 Comp Metabolic Nxr715 T(SGOT) 20 U/L 10/23/2016 Comp Metabolic Lrh810 AL T(SGPT) 10 U/L 10/23/2016 Comp Metabolic Fml948 BI LI T 0.5 mg/dL 10/23/2016 Comp Metabolic Lmf742 AL BUMIN 3.5 g/dL 10/23/2016 Comp Metabolic Ynw817 TP RO 6.3 g/dL 10/23/2016 Comp Metabolic Iso930 GL OB 2.8 g/dL 10/23/2016 Comp Metabolic Hmp526 A/ G Ratio 1.3 Ratio 10/23/2016 Comp Metabolic Bif104 Os mo 281 mOsmo 10/23/2016 Pt Rci3314 PT 26.8 seconds 10/23/2016 Pt Lkl8722 INR 2.7 10/23/2016 Pt Fhn9321 Low Intensity - 1.5-2.0 10/23/2016 Pt Pfj2366 Mod intensity - 2.0-3.0 10/23/2016 Pt Fgo9968 Hi intensity - 3.0-4.0 10/23/2016 Pt Wif9539 PT 28.3 seconds 09/25/2016 Pt Xnx1696 INR 2.8 09/25/2016 Pt Lxz9367 Low Intensity - 1.5-2.0 09/25/2016 Pt Bww3214 Mod intensity - 2.0-3.0 09/25/2016 Pt Jhq4187 Hi intensity - 3.0-4.0 09/25/2016 Metabolic Ord15 [...] Metabolic Ord15 CALCIUM 8.8 mg/dL 09/25/2016 Pt Hnm9927 PT 30.6 seconds 09/11/2016 Pt Icr3320 INR 3.2 09/11/2016 Pt Fhy2100 Low Intensity - 1.5-2.0 09/11/2016 Pt Ttn3558 Mod intensity - 2.0-3.0 09/11/2016 Pt Thn3804 Hi intensity - 3.0-4.0 09/11/2016 Comp Metabolic Luu361 NA 138 mEq/L 09/11/2016 Comp Metabolic Cgk806 K 4.4 mEq/L 09/11/2016 Comp Metabolic Vxv918 CL 103 mEq/L 09/11/2016 Comp Metabolic Cxe274 CO2 31.0 mEq/L 09/11/2016 Comp Metabolic Oin439 AN ION GAP 8 09/11/2016 Comp Metabolic Kzs598 GL UCOSE 146 mg/dL 09/11/2016 Comp Metabolic Rfd007 Cr eat 1.0 mg/dL 09/11/2016 Comp Metabolic Jpt330 eG FR 60 ml/min/1.73m2 09/11 Comp Metabolic Std221 BUN 16 mg/dL 09/11/2016 Comp Metabolic Rsn162 B/ C Ratio 16.5 Ratio 09/11/2016 Comp Metabolic Jqz115 CA LCIUM 8.7 mg/dL 09/11/2016 Comp Metabolic Irj461 AL K PHOS 52 U/L 09/11/2016 Comp Metabolic Crt738 T(SGOT) 19 U/L 09/11/2016 Comp Metabolic Yha757 AL T(SGPT) 11 U/L 09/11/2016 Comp Metabolic Ahk482 BI LI T 0.7 mg/dL 09/11/2016 Comp Metabolic Tlw667 AL BUMIN 3.3 g/dL 09/11/2016 Comp Metabolic Tcx804 TP RO 5.8 g/dL 09/11/2016 Comp Metabolic Phs368 GL OB 2.5 g/dL 09/11/2016 Comp Metabolic Mqj046 A/ G Ratio 1.3 Ratio 09/11/2016 Comp Metabolic Iel793 Os mo 280 mOsmo 09/11/2016 C-Reactive Protein Qnt Crqnt CRP 0.1 mg/dl 08/21/2016 Comp Metabolic Sos148 NA 139 mEq/L 08/21/2016 Comp Metabolic Qde435 K 4.1 mEq/L 08/21/2016 Comp Metabolic Iyz925 CL 102 mEq/L 08/21/2016 Comp Metabolic Swx329 CO2 30.0 mEq/L 08/21/2016 Comp Metabolic Tjb746 AN ION GAP 11 08/21/2016 Comp Metabolic Jiv003 GL UCOSE 148 mg/dL 08/21/2016 Comp Metabolic Wrc310 Cr eat 1.0 mg/dL 08/21/2016 Comp Metabolic Ion313 eG FR 55 ml/min/1.73m2 08/21 Comp Metabolic Qoj622 BUN 21 mg/dL 08/21/2016 Comp Metabolic Lnl585 B/ C Ratio 20.2 Ratio 08/21/2016 Comp Metabolic Mgx848 CA LCIUM 9.4 mg/dL 08/21/2016 Comp Metabolic Apx617 AL K PHOS 63 U/L 08/21/2016 Comp Metabolic Qjp433 T(SGOT) 23 U/L 08/21/2016 Comp Metabolic Kyn483 AL T(SGPT) 16 U/L 08/21/2016 Comp Metabolic Vxc116 BI LI T 0.6 mg/dL 08/21/2016 Comp Metabolic Utq619 AL BUMIN 3.9 g/dL 08/21/2016 Comp Metabolic Utd112 TP RO 6.8 g/dL 08/21/2016 Comp Metabolic Ftv982 GL OB 2.9 g/dL 08/21/2016 Comp Metabolic Npu920 A/ G Ratio 1.4 Ratio 08/21/2016 Comp Metabolic Pks660 Os mo 283 mOsmo 08/21/2016 Sed Rate Ord21 ESR 16 mm/hr 08/21/2016 Pt Eve3600 PT 27.2 seconds 08/21/2016 Pt Xvg2641 INR 2.7 08/21/2016 Pt Tlv8067 Low Intensity - 1.5-2.0 08/21/2016 Pt Eoh6271 Mod intensity - 2.0-3.0 08/21/2016 Pt Cim3728 Hi intensity - 3.0-4.0 08/21/2016 Magnesium Ord90 Mag 1.9 mg/dL 08/21/2016 Pt Dtd3263 PT 25.9 seconds 06/17/2016 Pt Oji1224 INR 2.5 06/17/2016 Pt Yoc7936 Low Intensity - 1.5-2.0 06/17/2016 Pt Vkh8336 Mod intensity - 2.0-3.0 06/17/2016 Pt Inr8513 Hi intensity - 3.0-4.0 06/17/2016 Tsh Ord6 hTSH II 2.13 uIU/mL 06/08/2016 Free T4 Pzl283 FREE T4 0.79 ng/dL 06/08/2016 Cbc With [...] 26.8 pg 06/08/2016 Cbc With Differential Ord2 [place]% 12.0 % 06/08/2016 Cbc With Differential Ord2 [...] 1.40 K/ul 06/08/2016 Cbc With Differential Ord2 [place] ABS# 0.7 K/ul 06/08/2016 Cbc With Differential Ord2 Eos ABS# 0.3 K/ul 06/08/2016 Cbc With Differential Ord2 Baso ABS# 0.1 K/ul 06/08/2016 %Hba1C Axv495 % HbA1c 21803-5 6.2 % 06/08/2016 %Hba1C Anp439 Gluc Ave 131 mg/dL 06/08/2016 Comp Metabolic Hdv548 NA 138 mEq/L 06/08/2016 Comp Metabolic Bhp466 K 3.9 mEq/L 06/08/2016 Comp Metabolic Oou153 CL 105 mEq/L 06/08/2016 Comp Metabolic Wyv885 CO2 27.0 mEq/L 06/08/2016 Comp Metabolic Zsn479 AN ION GAP 10 06/08/2016 Comp Metabolic Dgj287 GL UCOSE 127 mg/dL 06/08/2016 Comp Metabolic Fpw303 Cr eat 1.0 mg/dL 06/08/2016 Comp Metabolic Xfh778 eG FR 59 ml/min/1.73m2 06/08 Comp Metabolic Yom628 BUN 19 mg/dL 06/08/2016 Comp Metabolic Qmt633 B/ C Ratio 19.4 Ratio 06/08/2016 Comp Metabolic Ehx570 CA LCIUM 9.2 mg/dL 06/08/2016 Comp Metabolic Fco135 AL K PHOS 77 U/L 06/08/2016 Comp Metabolic Tjf097 T(SGOT) 19 U/L 06/08/2016 Comp Metabolic Vnf039 AL T(SGPT) 13 U/L 06/08/2016 Comp Metabolic Irm731 BI LI T 0.5 mg/dL 06/08/2016 Comp Metabolic Mjz285 AL BUMIN 3.8 g/dL 06/08/2016 Comp Metabolic Hev803 TP RO 6.6 g/dL 06/08/2016 Comp Metabolic Aly044 GL OB 2.8 g/dL 06/08/2016 Comp Metabolic Mqt907 A/ G Ratio 1.4 Ratio 06/08/2016 Comp Metabolic Qnf849 Os mo 280 mOsmo 06/08/2016 Pt Uai3398 PT 36.1 seconds 06/08/2016 Pt Ebs0961 INR 3.9 06/08/2016 Pt Yvv6296 Low Intensity - 1.5-2.0 06/08/2016 Pt Zyy4118 Mod intensity - 2.0-3.0 06/08/2016 Pt Yeb1313 Hi intensity - 3.0-4.0 06/08/2016 Lipid Ord30 CHOL 149 mg/dL 06/08/2016 Lipid Ord30 HDL 46.0 mg/dl 06/08/2016 Lipid Ord30 TRIG 279 mg/dL 06/08/2016 Lipid Ord30 LDL 47 mg/dL 06/08/2016 Lipid Ord30 C/HDL 3.2 Ratio 06/08/2016 Pt Rbv8790 PT 30.9 seconds 02/12/2016 Pt Fbh8581 INR 3.2 02/12/2016 Pt Pil5655 Low Intensity - 1.5-2.0 02/12/2016 Pt Lef1096 Mod intensity - 2.0-3.0 02/12/2016 Pt Hlx6387 Hi intensity - 3.0-4.0 02/12/2016 Free T4 Pch370 FREE T4 1.24 ng/dL 09/27/2015 %Hba1C Vnl351 % HbA1c 62189-3 6.4 % 09/27/2015 %Hba1C Ina636 Gluc Ave 137 mg/dL 09/27/2015 Tsh Ord6 hTSH II 0.37 uIU/mL 09/27/2015 Pt Lrq0991 PT 26.2 seconds 09/27/2015 Pt Myk2396 INR 2.5 09/27/2015 Pt Ubt2522 Low Intensity - 1.5-2.0 09/27/2015 Pt Xzo9662 Mod intensity - 2.0-3.0 09/27/2015 Pt Ktr9867 Hi intensity - 3.0-4.0 09/27/2015 Pt Nde3000 PT 27.6 seconds 2015 Pt Upv2518 INR 2.7 2015 Pt Hbn3195 Low Intensity - 1.5-2.0 2015 Pt Wgn3009 Mod intensity - 2.0-3.0 2015 Pt Mat2768 Hi intensity - 3.0-4.0 2015 %Hba1C Dbz358 % HbA1c 76954-7 6.1 % 06/11/2015 %Hba1C Uvm818 Gluc Ave 128 mg/dL 06/11/2015 Cbc With [...] Ord2 RDW 15.8 % 06/10/2015 Comp Metabolic Aoo741 NA 139 mEq/L 06/10/2015 Comp Metabolic Miz339 K 4.1 mEq/L 06/10/2015 Comp Metabolic Igo084 CL 105 mEq/L 06/10/2015 Comp Metabolic Eck358 CO2 27.0 mEq/L 06/10/2015 Comp Metabolic Buk039 AN ION GAP 11 06/10/2015 Comp Metabolic Ypa336 GL UCOSE 127 mg/dL 06/10/2015 Comp Metabolic Jmx990 Cr eat 1.0 mg/dL 06/10/2015 Comp Metabolic Bku171 eG FR 59 ml/min/1.73m2 06/10 Comp Metabolic Axc343 BUN 21 mg/dL 06/10/2015 Comp Metabolic Sld910 B/ C Ratio 21.2 Ratio 06/10/2015 Comp Metabolic Sgy557 CA LCIUM 9.2 mg/dL 06/10/2015 Comp Metabolic Qjr962 AL K PHOS 87 U/L 06/10/2015 Comp Metabolic Xpk346 T(SGOT) 20 U/L 06/10/2015 Comp Metabolic Zra318 AL T(SGPT) 17 U/L 06/10/2015 Comp Metabolic Jqt522 BI LI T 0.4 mg/dL 06/10/2015 Comp Metabolic Wiz874 AL BUMIN 4.1 g/dL 06/10/2015 Comp Metabolic Vai992 TP RO 7.2 g/dL 06/10/2015 Comp Metabolic Prr513 GL OB 3.1 g/dL 06/10/2015 Comp Metabolic Sxk881 A/ G Ratio 1.3 Ratio 06/10/2015 Comp Metabolic Vkf740 Os mo 282 mOsmo 06/10/2015 Tsh Ord6 hTSH II 0.86 uIU/mL 06/10/2015 Lipid Ord30 CHOL 161 mg/dL 06/10/2015 Lipid Ord30 HDL 49.0 mg/dl 06/10/2015 Lipid Ord30 TRIG 208 mg/dL 06/10/2015 Lipid Ord30 LDL 70 mg/dL 06/10/2015 Lipid Ord30 C/HDL 3.3 Ratio 06/10/2015 Pt Nle7280 PT 25.0 seconds 04/09/2015 Pt Atv3484 INR 2.4 04/09/2015 Pt Qkp8140 Low Intensity - 1.5-2.0 04/09/2015 Pt Vww6935 Mod intensity - 2.0-3.0 04/09/2015 Pt Fbq7979 Hi intensity - 3.0-4.0 04/09/2015 Free T4 Cap203 FREE T4 1.05 ng/dL 01/22/2015 Pt Aze2819 PT 27.2 seconds 01/22/2015 Pt Cil1294 INR 2.6 01/22/2015 Pt Gdn8579 Low Intensity - 1.5-2.0 01/22/2015 Pt Nhg1840 Mod intensity - 2.0-3.0 01/22/2015 Pt Jys5098 Hi intensity - 3.0-4.0 01/22/2015 Cbc With [...] Differential Ord2 RDW 15.2 % 01/22/2015 B12 Mcv491 B12 402.00 pg/ml 01/22/2015 Tsh Ord6 hTSH II 0.65 uIU/mL 01/22/2015 Lipid Ord30 CHOL 166 mg/dL 01/22/2015 Lipid Ord30 HDL 48.0 mg/dl 01/22/2015 Lipid Ord30 TRIG 264 mg/dL 01/22/2015 Lipid Ord30 LDL 65 mg/dL 01/22/2015 Lipid Ord30 C/HDL 3.5 Ratio 01/22/2015 Comp Metabolic Tpr736 NA 138 mEq/L 01/22/2015 Comp Metabolic Ebw514 K 4.1 mEq/L 01/22/2015 Comp Metabolic Azs023 CL 104 mEq/L 01/22/2015 Comp Metabolic Dcz786 CO2 29.0 mEq/L 01/22/2015 Comp Metabolic Yot248 AN ION GAP 9 01/22/2015 Comp Metabolic Mrj188 GL UCOSE 106 mg/dL 01/22/2015 Comp Metabolic Kpn993 Cr eat 0.9 mg/dL 01/22/2015 Comp Metabolic Xmo895 eG FR 63 ml/min/1.73m2 01/22 Comp Metabolic Fam862 BUN 21 mg/dL 01/22/2015 Comp Metabolic Lnz155 B/ C Ratio 22.3 Ratio 01/22/2015 Comp Metabolic Cgy679 CA LCIUM 9.4 mg/dL 01/22/2015 Comp Metabolic Xju983 AL K PHOS 83 U/L 01/22/2015 Comp Metabolic Pga166 T(SGOT) 23 U/L 01/22/2015 Comp Metabolic Mfo523 AL T(SGPT) 18 U/L 01/22/2015 Comp Metabolic Wtq804 BI LI T 0.8 mg/dL 01/22/2015 Comp Metabolic Gdq020 AL BUMIN 4.2 g/dL 01/22/2015 Comp Metabolic Xjc203 TP RO 7.3 g/dL 01/22/2015 Comp Metabolic Dgn549 GL OB 3.1 g/dL 01/22/2015 Comp Metabolic Aih408 A/ G Ratio 1.4 Ratio 01/22/2015 Comp Metabolic Fgq917 Os mo 279 mOsmo 01/22/2015 Review of [...] Procedure Codes Date THER/PROPH/DIAG INJ SC/IM CPT-4: 87700 09/02/2018 TRIAMCINOLONE ACET I [place] NOS CPT-4: J3301 09/02/2018 URINALYSIS NONAUTO W /O SCOPE CPT-4: 95515 03/05/2017 Vital Signs Date Vital 09/02/2018 Blood Pressure 1: 128/72 Code: 8480-6 BMI: 38.2 Code: 57552-0 Heart Rate 1: 80 bpm Height: 5'1" SpO2: 98% Weight: 202 lbs 04/14/2018 Blood Pressure 1: 116/78 Code: 8480-6 BMI: 41.6 Code: 56686-2 Heart Rate 1: 72 bpm Height: 5'1" SpO2: 98% Weight: 220 lbs 01/18/2018 Blood Pressure 1: 132/74 Code: 8480-6 BMI: 43.5 Code: 22799-5 Heart Rate 1: 70 bpm Height: 5'1" SpO2: 97% Weight: 230 lbs 01/04/2018 Blood Pressure 1: 134/76 Code: 8480-6 BMI: 42.7 Code: 76596-7 Heart Rate 1: 83 bpm Height: 5'1" SpO2: 98% Weight: 226 lbs 09/23/2017 Blood Pressure 1: 124/76 Code: 8480-6 BMI: 42.3 Code: 59320-1 Heart Rate 1: 94 bpm Height: 5'1" SpO2: 96% Weight: 224 lbs 05/27/2017 Blood Pressure 1: 146/78 Code: 8480-6 BMI: 41.4 Code: 35090-7 Heart Rate 1: 85 bpm Height: 5'1" SpO2: 98% Weight: 219 lbs 02/24/2017 Blood Pressure 1: 138/66 Code: 8480-6 BMI: 41.4 Code: 58060-0 Heart Rate 1: 78 bpm Height: 5'1" SpO2: 97% Weight: 219 lbs 11/02/2016 Blood Pressure 1: 144/72 Code: 8480-6 BMI: 46.1 Code: 34456-6 Heart Rate 1: 78 bpm Height: 5'1" SpO2: 98% Weight: 244 lbs 09/30/2016 Blood Pressure 1: 130/76 Code: 8480-6 BMI: 45.0 Code: 73923-0 Heart Rate 1: 86 bpm Height: 5'1" SpO2: 98% Weight: 238 lbs 09/10/2016 Blood Pressure 1: 136/68 Code: 8480-6 BMI: 46.3 Code: 37395-9 Heart Rate 1: 83 bpm Height: 5'1" SpO2: 98% Weight: 245 lbs 08/20/2016 Blood Pressure 1: 142/78 Code: 8480-6 BMI: 45.3 Code: 32313-0 Heart Rate 1: 84 bpm Height: 5'1" SpO2: 99% Weight: 240 lbs 06/08/2016 Blood Pressure 1: 134/76 Code: 8480-6 BMI: 44.2 Code: 20703-6 Heart Rate 1: 86 bpm Height: 5'1" SpO2: 96% Weight: 234 lbs 04/02/2016 Blood Pressure 1: 142/70 Code: 8480-6 BMI: 44.6 Code: 20411-5 Heart Rate 1: 78 bpm Height: 5'1" SpO2: 97% Weight: 236 lbs 01/14/2016 Blood Pressure 1: 146/72 Code: 8480-6 BMI: 44.2 Code: 45004-0 Heart Rate 1: 86 bpm Height: 5'1" SpO2: 96% Weight: 234 lbs 10/02/2015 Blood Pressure 1: 158/76 Code: 8480-6 BMI: 44.2 Code: 55899-7 Heart Rate 1: 67 bpm Height: 5'1" SpO2: 97% Weight: 234 lbs 07/15/2015 Blood Pressure 1: 200/90 Code: 8480-6 Blood Pressure 1: 148/78 Code: 8480-6 BMI: 44.0 Code: 55630-6 Heart Rate 1: 89 bpm Height: 5'1" SpO2: 97% Weight: 233 lbs 06/10/2015 Blood Pressure 1: 140/82 Code: 8480-6 BMI: 44.0 Code: 03770-0 Heart Rate 1: 78 bpm Height: 5'1" [...] wearing crocs and there was a new slovenian on the floor: her foot didn't move [...] Encounters Encounter Performer Loca tion Codes Date 52578 EST. PATIENT, LEVEL IV Diagnosis: Other acute sinusitis[ICD10: J01.80] Diagnosis: Other allergic rhinitis[ICD10: J30.89] Nata Almanza MD, [facility] CPT-4: 98249 09/02/2018 ([id number]) 90502 EST. P ATIENT, LEVEL IV Diagnosis: Essential (primary) hypertension[ICD10: I10] Diagnosis: Hypothyroidism, unspecified[ICD10: E03.9] Diagnosis: Impaired fasting glucose[ICD10: R73.01] Diagnosis: long-term (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[ICD10: Z79.01] Edna Almanza MD, [facility] CPT-4: 75118 04/14/2018 ([id number]) 90916 EST. P ATIENT, LEVEL III Diagnosis: Localized edema[ICD10: R60.0] Diagnosis: Gastro-esophageal reflux disease without esophagitis[ICD10: K21.9] Edna Almanza MD, [facility] CPT-4: 31986 01/18/2018 ([id number]) 84850 EST. P ATIENT, LEVEL IV Diagnosis: Gastro-esophageal reflux disease without esophagitis[ICD10: K21.9] Diagnosis: Localized edema[ICD10: R60.0] Diagnosis: Essential (primary) hypertension[ICD10: I10] Diagnosis: Hypothyroidism, unspecified[ICD10: E03.9] Diagnosis: Impaired fasting glucose[ICD10: R73.01] Edna Almanza MD, [facility] CPT-4: 46053 01/04/2018 ([id number]) 91572 EST. 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 PATIENT, LEVEL III Diagnosis: Pain in right hip[ICD10: M25.551] Nata Almanza MD, [facility] CPT-4: 35935 02/24/2017 ([id number]) 08505 EST. P ATIENT, LEVEL IV Diagnosis: Essential (primary) hypertension[ICD10: I10] Diagnosis: Localized edema[ICD10: R60.0] Diagnosis: Pain in right hip[ICD10: M25.551] Sarai Almanza MD, [facility] CPT-4: 93999 11/02/2016 ([id number]) 96790 EST. P ATIENT, LEVEL IV Diagnosis: Essential (primary) hypertension[ICD10: I10] Diagnosis: Localized edema[ICD10: R60.0] Sarai Almanza MD, [facility] CPT-4: 99864 09/30/2016 33839 EST. PATIENT, LEVEL IV Diagnosis: Localized edema[ICD10: R60.0] Diagnosis: Pain in joints of left hand[ICD10: M25.542] Diagnosis: Pain in joints of right hand[ICD10: M25.541] Nata Almanza MD, [facility] CPT-4: 99922 09/10/2016 12821 EST. PATIENT, LEVEL IV Diagnosis: Localized edema[ICD10: R60.0] Diagnosis: Pain in joints of left hand[ICD10: M25.542] Diagnosis: Pain in joints of right hand[ICD10: M25.541] Diagnosis: Other fatigue[ICD10: R53.83] Nata Almanza MD, [facility] CPT-4: 94727 08/20/2016 03534 EST. 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 PATIENT, LEVEL IV Diagnosis: Other allergic rhinitis[ICD10: J30.89] Diagnosis: Acute laryngopharyngitis[ICD10: J06.0] Nata Almanza MD, [facility] CPT-4: 88804 04/02/2016 08207 EST. PATIENT, LEVEL IV Diagnosis: Left upper quadrant pain[ICD10: R10.12] Nata Almanza MD, [facility] CPT-4: 40437 01/14/2016 26198 EST. PATIENT, LEVEL IV Diagnosis: Pain in left shoulder[ICD10: M25.512] Diagnosis: Body mass index (BMI) 40.0-44.9, adult[ICD10: Z68.41] Nata Almanza MD, [facility] CPT-4: 19603 10/02/2015 31957 EST. PATIENT, LEVEL IV Diagnosis: Pain in left leg[ICD10: M79.605] Diagnosis: Other group home (current) drug therapy[ICD10: Z79.899] Nata Almanza MD, [facility] CPT-4: 76588 07/15/2015 ([id number]) 90390 EST. 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 09/02/2018 Appointment: Nata Hsu WPtel: [address] [place], [place] [phone] (15 min) Moderate 09/02/2018 Patient Education: Patient [...] A1C 04/14/2018 App[phone] [phone] (15 min) Moderate 04/14/2018 Patient Education: [...] to further attempt to reduce peripheral edema. KIOF-hlnocdkz-nmsarxal prilosec BID and carafate QID -discussed low spice, low acidic diet 01/18/2018 Appointment: Edna Douglas WPtel: [phone] [phone] (15 min) Moderate 01/18/2018 Patient Education: Patient [...] on previous levels of control. 01/04/2018 Appointment: Douglas Edna WPtel: [phone] [phone] [place] (30 min) Complex 01/04/2018 Patient Education: Patient Medication Summary Completed 01/04/2018 Care Plan: SCREENINGMAMMOGRAPHYDIGITAL LOINC : 63375-2 Pending 01/04/2018 Visit Plan: Abdominal hernia - not able to be taken to surgery by local providers and pt has been seen at [facility] and that surgeon felt like Kat [...] at home. 09/23/2017 Appointment: [facility] [phone] [facility] [place] (15 min) Moderate 09/23/2017 Patient [...] to medications. 05/27/2017 App[facility]ment: [phone] (30 min) Complex 05/27/2017 Patient Education: [...] Dr. Palacios. 02/24/2017 Appointment: [facility]su [phone] [facility] [place] (30 min) Complex 02/24/2017 Patient [...] Chaney. 11/02/2016 Appointment: Sarai Almanza WPtel: [phone] [facility] (15 min) Moderate 11/02/2016 Patient Education: Patient [...] edema. 09/30/2016 Appointment: Sarai Almanza WPtel: [phone] [facility] (15 min) Moderate 09/30/2016 Patient [...] edema. 09/10/2016 Appointment: Nata Hsu WPtel: [phone] [facility] (30 min) Complex 09/10/2016 Patient Education: Patient [...] peripheral edema. 08/20/2016 Appointment: Nata Hsu WPtel: [phone] [facility] (30 min) Complex 08/20/2016 Patient Education: Patient Medication Summary Completed 08/20/2016 Referral: Otf [facility] Referral Initiated 07/02/2016 Visit Plan: Chronic [...] 06/08/2016 Care Plan: Referral Order SNOMED-CT : [id number] Pending 06/08/2016 Visit Plan: URI - Pt [...] allergy spray. 04/02/2016 Appointment: [facility]ata [facility]su [phone] [facility] (30 min) Complex 04/02/2016 Patient Education: [...] pain 01/14/2016 Appointment: Edna Douglas WPtel: [phone] [phone] (30 min) Complex 01/14/2016 Patient Education: Patient Medication Summary Completed 01/14/2016 Patient Education: Obesity Completed 01/14/2016 Care Plan: BMI Above normal followup DAVID F-MGMT EDUC & TRAIN 1 PT Pending 10/24/2015 Care Plan: X-RAY EXAM OF SHOULDER LOINC : 40561-5 Pending 10/24/2015 Visit Plan: Left shoulder pain [...] RTC for weight check. 10/02/2015 Appointment: [facility] Dougls[phone] [phone] (15 min) Moderate 10/02/2015 Patient Education: [...] cuff exerci ses Completed 06/10/2015 Appointment: Sarai Almazna [facility]Ptel: [facility] (15 min) Moderate 04/22/2015 Visit Plan: [...] have surgical fixation - planning occurring at [facility]. Snoring - Sleep apnea symptoms with [...] to medications. 01/22/2015 Appointment: Sarai Almanza WPtel: [facility] [place] ([place] New Patient 01/22/2015 Patient Education: Patient Medication Summary Completed 01/22/2015 Patient Education: Hypertension Completed 01/22/2015 [facility] [facility] Initiated Instructions Comment . Hypertension - [...] further attempt to reduce peripheral edema. . Edema - pt has bee n advised to elevate legs to prevent dependent edema, compression has been recommended to help to naturally decrease peripheral edema. Diuretic use has been discussed and pt has been instructed in appropriate use of such medication as necessary to further attempt to reduce peripheral edema. . Chronic Anticoagul ant use - Pt [...] have surgical fixation - planning occurring at [facility]. Snoring - Sleep apnea symptoms with [...] to further attempt to reduce peripheral edema. RZXA-yvjesohv-rpkojxdc prilosec BID and carafate QID -discussed low [...] providers and pt has been seen at [facility] and that surgeon felt like Kat would be better served by Dr. Betancur at [facility]. I have recommended a referral [...]
--- OUTSIDE RECORDS SUMMARY | 2020-01-16 22:54 | XMS REPORT | CCD ---
Author Author Kat Almanza Organization Sarai Almanza MD, [facility] Address [address] [place] [address] Phone Care Team Providers Care Maternity Nurse Name Role Phone PP Unavailable CCM Unavailable Summary Purpose Interface Exchange Insurance Providers Payer name Policy type / Coverage type Covered democrat ID Effective Begin Date Effective End Date WPS Medicare Part B Medicare Part B [id number] 2017 Unknown Bankers [place] Medicare Part B [id number] 2017 Unknown Family history Father Diagnosis Age At Onset Hyperlipidemia Unknown Heart Attack Unknown Mother Diagnosis Age At Onset Arthritis Unknown Social History Social History Element Codes Description Effective Dates Marital status Unknown M arried Nathan 09/30/2016 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 Number of children Unknown 3 01/22/[address]: 591696994 Never smoker 01/22/[address]: 034751933 Never drinks alcohol 01/22/2015 Allergies, Adverse Reactions, [...] 780.79 ICD-10: R53.83 Active 08/20/2016 Unknown Other half-way (cur rent) drug therapy ICD-9: V58.69 ICD-10: [...] ICD-9: 780.79 ICD-10: R53.83 08/20/2016 Active Other half-way (cur rent) drug therapy ICD-9: V58.69 ICD-10: [...] Instructions allopurinol 300 mg t ablet RxNorm: 939327 TAKE ONE TABLET BY MO UTH DAILY 11/22/2018 03/21/2019 Ac tive clonazepam 0.5 mg ta blet RxNorm: 219746 1 Tablet(s) PO BID 11/16/2018 04/14/2019 Active Carafate 1 gram tablet RxNorm: 138396 TAKE ONE TABLET BY MOUTH BEFORE MEALS AN D AT BEDTIME 11/15/2018 12/10/2018 Active atenolol 100 mg tablet RxNorm: 213188 TAKE ONE TABLET BY MOUTH DAILY 10/24/2018 05/21/2019 Ac tive potassium chloride E R 20 mEq tablet,extended release RxNorm: 357707 2 Tablet(s) PO daily 10/18/2018 02/14/2019 Active potassium chloride E R 20 mEq tablet,extended release RxNorm: 076492 1 Tablet(s) PO daily 10/03/2018 10/17/2018 Inactive Carafate 1 gram tablet RxNorm: 270916 TAKE ONE TABLET BY MOUTH BEFORE MEALS AN D AT BEDTIME 09/26/2018 11/14/2018 Inactive Plavix 75 mg tablet RxNorm: 102546 TAKE ONE TABLET BY MOUTH DAILY 09/02/2018 02/28/2019 Ac tive prednisone 10 mg tablet RxNorm: 405032 Tablet(s) PO 09/02/2018 No Stop Date Active 60,60,50,50,40,40,30,30,20,20,10,10 Synthroid 125 mcg ta blet RxNorm: 938032 1 Tablet(s) PO daily 09/02/2018 08/27/2019 Active potassium chloride E R 20 mEq tablet,extended release RxNorm: 137294 1 Tablet(s) PO daily 09/02/2018 09/01/2018 Inactive potassium chloride E R 20 mEq tablet,extended release RxNorm: 523907 1 Tablet(s) PO daily 09/02/2018 10/02/2018 Inactive Synthroid 125 mcg ta blet RxNorm: 806157 1 Tablet(s) PO daily 09/02/2018 09/01/2018 Inactive Keflex 500 mg capsule RxNorm: 482232 1 Capsule(s) PO TID 09/02/2018 09/08/2018 Inactive Kenalog 40 mg/mL maxine pension for injection RxNorm: 9165744 Milliliter(s) Inj 09/02/2018 09/02/2018 In active Lipitor 40 mg tablet RxNorm: 394869 TAKE ONE TABLET BY MOUTH DAILY 07/29/2018 07/23/2019 Ac tive Coumadin 1 mg tablet RxNorm: 879391 TAKE ONE TABLET BY MOUTH DAILY 07/29/2018 10/26/2018 In active Carafate 1 gram tablet RxNorm: 784077 TAKE ONE TABLET BY MOUTH BEFORE MEALS AN D AT BEDTIME 07/28/2018 09/17/2018 Inactive Coumadin 4 mg tablet RxNorm: 420065 2 Tablet(s) daily 07/11/2018 02/05/2019 Active Generi c For:COUMADIN 4MG 07/22/2017 8:58:26 AM Coumadin 5 mg tablet RxNorm: 758931 Tablet(s) TAKE 1 TABLET BY MOUTH DIRE CTED 07/08/2018 01/03/2019 Ac tive Generic For:COUMADIN 5MG TAB 03/21/2018 9:13:00 AM Coumadin 4 mg tablet RxNorm: 319315 Tablet(s) TAKE 1 TABLET BY MOUTH THREE T IMES PER WEEK (WEDNESDAY, WEDNESDAY AND WEDNESDAY) 07/08/2018 07/10/2018 Inactive Gene andre For:COUMADIN 4MG 07/22/2017 8:58:26 AM Coumadin 1 mg tablet RxNorm: 848016 1 Tablet(s) PO daily 07/08/2018 08/06/2018 Inactive venlafaxine ER 75 mg capsule,extended release 24 hr RxNorm: 771982 Capsule(s) TAKE 1 CAPSULE BY MOUTH ONCE DAILY 06/23/2018 06/17/2019 Active Generic For:*EFFEXOR XR 75MG 06/19/2017 12:23:45 PM sodium bicarbonate 6 50 mg tablet RxNorm: 201639 Tablet(s) TAKE 2 TABL ETS BY MOUTH TWICE DAILY 06/23/2018 12/19/2018 Active 12/20/2017 9:10:59 AM Coumadin 1 mg tablet RxNorm: 697549 1 Tablet(s) PO daily 06/17/2018 07/07/2018 Inactive Coumadin 1 mg tablet RxNorm: 949904 1 Tablet(s) PO daily 06/17/2018 06/16/2018 Inactive clonazepam 0.5 mg ta blet RxNorm: 537443 1 Tablet(s) PO BID 06/08/2018 11/03/2018 Inactive spironolactone 25 mg tablet RxNorm: 402627 TAKE 1 TABLET BY MOUT H EVERY DAY 05/18/2018 05/12/2019 Ac tive Generic For:*ALDACTONE 25MG 05/18/2018 8:57:50 AM Carafate 1 gram tablet RxNorm: 893946 TAKE ONE TABLET BY MOUTH BEFORE MEALS AN D AT BEDTIME 05/18/2018 07/12/2018 Inactive Generic For:CARAFATE 1GM 1 07/18/2017 8:38:28 AM Synthroid 137 mcg ta blet RxNorm: 435616 TAKE 1 TABLET BY MOUT H ONCE DAILY 05/18/2018 08/30/2018 In active Generic For:SYNTHROID 137MCG TAB 2017 8:57:54 AM allopurinol 300 mg t ablet RxNorm: 969282 TAKE 1 TABLET BY MOUT H ONCE DAILY. 04/18/2018 10/14/2018 In active Generic For:ZYLOPRIM 300 MG TABLET 03/22 9:13:47 AM Lasix 20 mg tablet RxNorm: 533540 TAKE ONE TABLET BY MOUTH DAILY 04/18/2018 08/15/2018 In active Generic For:LASIX 20MG 04/18/2018 9:13: 50 AM Carafate 1 gram tablet RxNorm: 371175 TAKE ONE TABLET BY MOUTH BEFORE MEALS AN D AT BEDTIME 04/18/2018 05/17/2018 Inactive Generic For:CARAFATE 1GM 1 9:32:51 AM Coumadin 5 mg tablet RxNorm: 262873 TAKE 1 TABLET BY MOUTH DIRECTED 03/21/2018 07/07/2018 In active Generic For:COUMADIN 5MG TAB 03/21/2018 9:13:00 AM Carafate 1 gram tablet RxNorm: 943402 TAKE ONE TABLET BY MOUTH BEFORE MEALS AN D AT BEDTIME 03/21/2018 04/17/2018 Inactive Generic For:CARAFATE 1GM 1 9:14:24 AM Carafate 1 gram tablet RxNorm: 015638 1 Tablet(s) PO AC & HS 02/17/2018 03/20/2018 Inactive atenolol 100 mg tablet RxNorm: 494428 1 Tablet(s) PO daily 02/04/2018 09/01/2018 Inactive atenolol 50 mg tablet RxNorm: 496035 1 Tablet(s) PO daily 02/03/2018 02/03/2018 Inactive omeprazole 20 mg cap sean,delayed release RxNorm: 413713 1 Capsule(s) BID 01/21/2018 01/15/2019 Ac tive Generic For:PRILOSEC 20MG 07/22/2017 8:5 8:20 AM Carafate 1 gram tablet RxNorm: 958196 1 Tablet(s) PO AC & HS 01/21/2018 02/16/2018 Inactive Carafate 1 gram tablet RxNorm: 545263 1 Tablet(s) PO AC & HS 01/18/2018 01/20/2018 Inactive Carafate 1 gram tablet RxNorm: 755650 1 Tablet(s) PO AC & HS 01/18/2018 02/27/2018 Inactive Carafate 1 gram tablet RxNorm: 848912 1 Tablet(s) PO AC & HS TAKE ONE TABLET B Y MOUTH TWICE DAILY 01/18/2018 05/17/2018 Inactive Generic For:CARAFATE 1GM 0 12/20/2017 9:10:56 AM omeprazole 20 mg cap sean,delayed release RxNorm: 795026 Capsule(s) TAKE 1 CAP SEAN BY MOUTH EVERY DAY 01/17/2018 01/20/2018 Inactive Generic For:PRILOSEC 20MG 0 07/22/2017 8:58:20 AM omeprazole 20 mg cap sean,delayed release RxNorm: 182531 Capsule(s) TAKE 1 CAP SEAN BY MOUTH EVERY DAY 01/14/2018 01/16/2018 Inactive Generic For:PRILOSEC 20MG 07/22/2017 8:58:20 AM clonazepam 0.5 mg ta blet RxNorm: 012607 1 Tablet(s) PO BID 01/07/2018 06/05/2018 Inactive Plavix 75 mg tablet RxNorm: 297740 1 Tablet(s) PO daily 01/07/2018 07/05/2018 Inactive Carafate 1 gram tablet RxNorm: 782975 1 Tablet(s) PO AC & HS 01/04/2018 01/17/2018 Inactive Lasix 20 mg tablet RxNorm: 239693 TAKE ONE TABLET BY MOUTH DAILY 12/20/2017 04/17/2018 In active Generic For:LASIX 20MG 12/20/2017 9:11: 03 AM sodium bicarbonate 6 50 mg tablet RxNorm: 175574 TAKE 2 TABLETS BY JAVON TH TWICE DAILY 12/20/2017 06/17/2018 In active 12/20/2017 9:10:59 AM Carafate 1 gram tablet RxNorm: 224348 TAKE ONE TABLET BY MOUTH TWICE DAILY 12/20/2017 01/17/2018 In active Generic For:CARAFATE 1GM 12/20/2017 9:1 0:56 AM Synthroid 137 mcg ta blet RxNorm: 844144 TAKE 1 TABLET BY MOUT H ONCE DAILY 11/19/2017 05/17/2018 In active Generic For:SYNTHROID 137MCG TAB 2017 8:58:04 AM Detrol LA 4 mg capsu le,extended release RxNorm: 725278 TAKE 1 CAPSULE BY JAVON TH ONCE DAILY 10/20/2017 04/13/2018 Inactive Generic For:DETROL LA 4MG C AP 10/20/2017 9:01:56 AM allopurinol 300 mg t ablet RxNorm: 369611 TAKE 1 TABLET BY MOUT H ONCE DAILY. 10/20/2017 04/17/2018 In active Generic For:ZYLOPRIM 300 MG TABLET 07/2017 9:01:59 AM Coumadin 5 mg tablet RxNorm: 251723 1 Tablet(s) PO UD 10/01/2017 03/20/2018 Inactive cyclobenzaprine 5 mg tablet RxNorm: 306610 1 Tablet(s) PO TID as needed myscle spasm 09/23/2017 10/12/2017 Inactive Lipitor 40 mg tablet RxNorm: 429691 TAKE 1 TABLET BY MOUTH ONCE DAILY 09/20/2017 07/28/2018 In active Generic For:LIPITOR 40MG 09/20/2017 8:5 6:04 AM atenolol 100 mg tablet RxNorm: 889154 1 Tablet(s) PO daily 08/30/2017 02/03/2018 Inactive atenolol 50 mg tablet RxNorm: 782283 1 Tablet(s) PO daily 08/30/2017 08/30/2017 Inactive Lovenox 30 mg/0.3 mL subcutaneous syringe RxNorm: 551346 0.3 Milliliter(s) SQ Q12H 08/24/2017 09/06/2017 In active Lasix 20 mg tablet RxNorm: 754525 TAKE ONE TABLET BY MOUTH DAILY 08/23/2017 12/19/2017 In active Generic For:LASIX 20MG 08/21/2017 9:04: 27 AM Synthroid 137 mcg ta blet RxNorm: 849706 TAKE 1 TABLET BY MOUT H ONCE DAILY 08/23/2017 11/18/2017 In active Generic For:SYNTHROID 137MCG TAB 2017 9:04:30 AM Lovenox 30 mg/0.3 mL subcutaneous syringe RxNorm: 149768 0.3 Milliliter(s) SQ Q12H 08/10/2017 08/23/2017 In active clonazepam 0.5 mg ta blet RxNorm: 853713 1 Tablet(s) PO BID 08/04/2017 12/30/2017 Inactive omeprazole 20 mg cap sean,delayed release RxNorm: 838232 TAKE 1 CAPSULE BY JAVON TH EVERY DAY 07/22/2017 01/13/2018 Inactive Generic For:PRILOSEC 20MG 07/22/2017 8: 58:20 AM Coumadin 4 mg tablet RxNorm: 259695 TAKE 1 TABLET BY MOUTH THREE TIMES PER [place] (WEDNESDAY, WEDNESDAY AND WEDNESDAY) 07/22/2017 10/03/2018 Inactive Generic For:COUMADIN 4MG 07/22/2017 8:58:26 AM Coumadin 4 mg tablet RxNorm: 822136 TAKE 1 TABLET BY MOUTH THREE TIMES PER [place] (WEDNESDAY, WEDNESDAY AND WEDNESDAY) 07/22/2017 02/16/2018 Inactive Generic For:COUMADIN 4MG 07/22/2017 8:58:26 AM sodium bicarbonate 6 50 mg tablet RxNorm: 587897 TAKE 2 TABLETS BY JAVON TH TWICE DAILY 06/22/2017 12/18/2017 In active 06/19/2017 12:23:30 PM venlafaxine ER 75 mg capsule,extended release 24 hr RxNorm: 757617 TAKE 1 CAPSULE BY MOUTH ONCE DAILY 06/22/2017 06/16/2018 Inactive Generic For:*EFFEXOR XR 75M G 06/19/2017 12:23:45 PM Coumadin 5 mg tablet RxNorm: 143282 1 Tablet(s) PO UD 06/01/2017 09/30/2017 Inactive Keflex 500 mg capsule RxNorm: 517198 1 Capsule(s) PO TID 05/27/2017 06/02/2017 Inactive Synthroid 137 mcg ta blet RxNorm: 784258 TAKE 1 TABLET BY MOUT H ONCE DAILY 05/24/2017 08/21/2017 In active Generic For:SYNTHROID 137MCG TAB 2016 8:55:59 AM Carafate 1 gram tablet RxNorm: 596269 TAKE ONE TABLET BY MOUTH TWICE DAILY 05/24/2017 12/19/2017 In active Generic For:CARAFATE 1GM 05/24/2017 8:5 5:54 AM spironolactone 25 mg tablet RxNorm: 459849 1 Tablet(s) PO daily 05/24/2017 05/17/2018 Inactive Detrol LA 4 mg capsu le,extended release RxNorm: 907415 1 Capsule(s) PO daily TAKE 1 CAPSULE BY MOUTH ONCE DAILY 05/10/2017 10/19/2017 Inactive Generic For:DETROL LA 4MG CAP 02/19/2017 2:36:00 PM Lasix 20 mg tablet RxNorm: 913815 TAKE ONE TABLET BY MOUTH DAILY 04/23/2017 08/20/2017 In active Generic For:LASIX 20MG 04/23/2017 9:04: 01 AM Coumadin 4 mg tablet RxNorm: 945479 TAKE 1 TABLET BY MOUTH THREE TIMES PER [place] (WEDNESDAY, WEDNESDAY AND WEDNESDAY) 04/23/2017 07/21/2017 Inactive Generic For:COUMADIN 4MG 04/23/2017 9:04:05 AM allopurinol 300 mg t ablet RxNorm: 314771 TAKE 1 TABLET BY MOUT H ONCE DAILY. 04/23/2017 10/19/2017 In active Generic For:ZYLOPRIM 300 MG TABLET 08/2016 9:03:57 AM potassium chloride 2 0 mEq/15 mL oral liquid RxNorm: 156414 Milliliter(s) 30 Milliliter(s) (40mEq) PO daily 03/24/2017 07/21/2017 Inactive Lovenox 30 mg/0.3 mL subcutaneous syringe RxNorm: 368702 0.3 Milliliter(s) SQ Q12H 03/22/2017 03/26/2017 In active Lovenox 30 mg/0.3 mL subcutaneous syringe RxNorm: 174040 0.3 Milliliter(s) SQ Q12H 03/19/2017 03/20/2017 In active Lovenox 30 mg/0.3 mL subcutaneous syringe RxNorm: 881877 0.3 Milliliter(s) SQ Q12H 03/16/2017 03/18/2017 In active clonazepam 0.5 mg ta blet RxNorm: 916136 1 Tablet(s) PO BID 03/02/2017 10/03/2018 Inactive Lovenox 30 mg/0.3 mL subcutaneous syringe RxNorm: 698818 1 injection SQ BID do NOT take the night time dose the day before surgery, or the morning dose the day of surgery 03/01/2017 03/07/2017 Inactive Lovenox 30 mg/0.3 mL subcutaneous syringe RxNorm: 098984 1 injection SQ BID 03/01/2017 02/28/2017 In active Detrol LA 4 mg capsu le,extended release RxNorm: 264994 TAKE 1 CAPSULE BY JAVON TH ONCE DAILY 02/19/2017 05/09/2017 Inactive Generic For:DETROL LA 4MG C AP 02/19/2017 2:36:00 PM hydrocodone 5 mg-humberto taminophen 325 mg tablet RxNorm: 081062 1-2 Tablet(s) PO Q6 P RN 02/04/2017 No Stop Date Active Zetia 10 mg tablet RxNorm: 951292 TAKE 1 TABLET BY MOUTH DAILY 01/25/2017 04/13/2018 Inactive 01/23/2017 9:03:48 AM omeprazole 20 mg cap sean,delayed release RxNorm: 036663 TAKE 1 CAPSULE BY JAVON TH EVERY DAY 01/25/2017 07/21/2017 Inactive Generic For:PRILOSEC 20MG 01/23/2017 9: 03:45 AM Coumadin 4 mg tablet RxNorm: 445511 TAKE 1 TABLET BY MOUTH THREE TIMES PER [place] (WEDNESDAY, WEDNESDAY AND WEDNESDAY) 01/25/2017 04/22/2017 Inactive Generic For:COUMADIN 4MG 01/23/2017 9:03:51 AM sodium bicarbonate 6 50 mg tablet RxNorm: 056908 TAKE 2 TABLETS BY JAVON TH TWICE DAILY 12/24/2016 06/21/2017 In active 12/24/2016 9:09:27 AM Lasix 20 mg tablet RxNorm: 768013 1 Tablet(s) PO daily 12/24/2016 04/22/2017 Inactive Synthroid 137 mcg ta blet RxNorm: 480734 TAKE 1 TABLET BY MOUT H ONCE DAILY 11/24/2016 05/22/2017 In active Generic For:SYNTHROID 137MCG TAB 2016 9:04:37 AM Coumadin 4 mg tablet RxNorm: 736530 TAKE 1 TABLET BY MOUTH THREE TIMES PER [place] (WEDNESDAY, WEDNESDAY AND WEDNESDAY) 11/24/2016 01/22/2017 Inactive Generic For:COUMADIN 4MG 11/24/2016 9:04:41 AM hydrocodone 5 mg-humberto taminophen 325 mg tablet RxNorm: 002252 1-2 Tablet(s) PO Q6 P RN 11/17/2016 02/03/2017 In active Carafate 1 gram tablet RxNorm: 387957 TAKE ONE TABLET BY MOUTH TWICE DAILY 10/27/2016 05/23/2017 In active Generic For:CARAFATE 1GM 10/26/2016 8:3 9:42 AM allopurinol 300 mg t ablet RxNorm: 786269 Tablet(s) TAKE 1 TABL ET BY MOUTH ONCE DAILY. 10/26/2016 04/22/2017 Inactive Lipitor 40 mg tablet RxNorm: 425549 1 Tablet(s) PO daily 09/25/2016 09/19/2017 Inactive Coumadin 4 mg tablet RxNorm: 776801 TAKE 1 TABLET BY MOUTH THREE TIMES PER [place] (WEDNESDAY, WEDNESDAY AND WEDNESDAY) 09/25/2016 11/23/2016 Inactive Generic For:COUMADIN 4MG 09/25/2016 8:55:58 AM Zetia 10 mg tablet RxNorm: 896933 1 Tablet(s) PO daily 09/25/2016 01/22/2017 Inactive gave 1 month of samples clonazepam 0.5 mg ta blet RxNorm: 703712 1 Tablet(s) PO BID 09/21/2016 10/03/2018 Inactive Lasix 20 mg tablet RxNorm: 485936 1 Tablet(s) PO daily 09/15/2016 12/23/2016 Inactive potassium chloride 2 0 mEq/15 mL oral liquid RxNorm: 488144 Milliliter(s) 30 Milliliter(s) (40mEq) PO daily 09/15/2016 01/12/2017 Inactive Lasix 20 mg tablet RxNorm: 903459 2 Tablet(s) PO daily 09/10/2016 09/12/2016 Inactive Lasix 20 mg tablet RxNorm: 388620 1 Tablet(s) PO daily 08/28/2016 08/30/2016 Inactive Lasix 20 mg tablet RxNorm: 456786 1 Tablet(s) PO daily 08/20/2016 08/22/2016 Inactive Detrol LA 4 mg capsu le,extended release RxNorm: 750009 TAKE 1 CAPSULE BY JAVON TH ONCE DAILY 07/27/2016 02/18/2017 Inactive Generic For:DETROL LA 4MG C AP 07/27/2016 9:08:27 AM Coumadin 4 mg tablet RxNorm: 975912 1 Tablet(s) PO 3 x week e th and sun 07/27/2016 09/24/2016 In active omeprazole 20 mg cap sean,delayed release RxNorm: 026288 Capsule(s) PO TAKE 1 CAPSULE BY MOUTH ONCE DAILY 07/27/2016 01/22/2017 Inactive venlafaxine ER 75 mg capsule,extended release 24 hr RxNorm: 731404 1 Capsule(s) PO daily 06/29/2016 06/21/2017 Inactive sodium bicarbonate 6 50 mg tablet RxNorm: 161541 TAKE 2 TABLETS BY JAVON TH TWICE DAILY 06/29/2016 12/23/2016 In active 06/27/2016 9:05:39 AM Coumadin 4 mg tablet RxNorm: 489407 1 Tablet(s) PO 3 x week tue thur and sun 06/09/2016 06/08/2016 In active Coumadin 4 mg tablet RxNorm: 965442 1 Tablet(s) PO 3 x week jyothi posadas 06/09/2016 07/26/2016 In active Zetia 10 mg tablet RxNorm: 412736 1 Tablet(s) PO daily 06/09/2016 06/08/2016 Inactive gave 1 month of samples Zetia 10 mg tablet RxNorm: 204483 1 Tablet(s) PO daily 06/09/2016 09/24/2016 Inactive gave 1 month of samples Effexor 75 mg tablet RxNorm: 407037 1 Tablet(s) PO daily 06/08/2016 06/28/2016 Inactive spironolactone 25 mg tablet RxNorm: 641964 1 Tablet(s) PO daily 06/08/2016 05/23/2017 Inactive Synthroid 137 mcg ta blet RxNorm: 084870 1 Tablet(s) PO daily 05/07/2016 11/02/2016 Inactive allopurinol 300 mg t ablet RxNorm: 031550 Tablet(s) TAKE 1 TABL ET BY MOUTH ONCE DAILY. 04/28/2016 10/24/2016 Inactive clonazepam 0.5 mg ta blet RxNorm: 571920 1 Tablet(s) PO BID 04/20/2016 10/03/2018 Inactive Flonase Allergy Reli ef 50 mcg/actuation nasal spray,suspension RxNorm: 4865124 1 [place] NASAL BID 04/02/2016 No Stop Date Active Zithromax Z-Thomas 250 mg tablet RxNorm: 433544 Tablet(s) PO 04/02/2016 08/27/2016 Inactive cetirizine 10 mg tablet RxNorm: 1190251 1 Tablet(s) PO daily 04/02/2016 05/01/2016 Inactive Carafate 1 gram tablet RxNorm: 112030 Tablet(s) TAKE 1 TABLET TWICE A DAY FOR 30 DAYS 03/30/2016 10/25/2016 Inactive Generic For:CARAFATE 1GM 02/08/2015 12:3 6:39 PM Plavix 75 mg tablet RxNorm: 236734 1 Tablet(s) PO daily 03/11/2016 09/06/2016 Inactive sodium bicarbonate 6 50 mg tablet RxNorm: 814711 Tablet(s) 2 Tablet(s) PO BID 02/28/2016 06/26/2016 In active omeprazole 20 mg cap sean,delayed release RxNorm: 634634 Capsule(s) PO TAKE 1 CAPSULE BY MOUTH ONCE DAILY 01/31/2016 07/26/2016 Inactive Fish Oil 1,000 mg ca psule RxNorm: 1 Capsule(s) PO BID 01/14/2016 No Stop Date Active Synthroid 137 mcg ta blet RxNorm: 176086 1 Tablet(s) PO daily 01/14/2016 05/06/2016 Inactive Detrol LA 4 mg capsu le,extended release RxNorm: 414980 TAKE 1 CAPSULE BY JAVON TH ONCE DAILY 12/30/2015 07/26/2016 Inactive Generic For:DETROL LA 4MG C AP 12/30/2015 9:11:01 AM potassium chloride 2 0 mEq/15 mL oral liquid RxNorm: 111905 Milliliter(s) 30 Milliliter(s) (40mEq) PO daily 12/02/2015 03/30/2016 Inactive sodium bicarbonate 6 50 mg tablet RxNorm: 196370 Tablet(s) 2 Tablet(s) PO BID 10/31/2015 02/27/2016 In active Lipitor 40 mg tablet RxNorm: 569120 1 Tablet(s) PO daily 10/09/2015 09/24/2016 Inactive sodium bicarbonate 6 50 mg tablet RxNorm: 891335 2 Tablet(s) PO BID 10/01/2015 10/30/2015 Inactive allopurinol 300 mg t ablet RxNorm: 718937 TAKE 1 TABLET BY MOUT H ONCE DAILY. 10/01/2015 04/27/2016 In active Generic For:ZYLOPRIM 300 MG TABLET 09/19 9:21:15 AM clonazepam 0.5 mg ta blet RxNorm: 060367 1 Tablet(s) PO BID 09/30/2015 04/19/2016 Inactive Coumadin 5 mg tablet RxNorm: 964996 1 Tablet(s) PO daily 09/27/2015 05/31/2017 Inactive Generic For:COUMADIN 5MG TAB N O T I C E PRESCRIPTION PREVIOUSLY AUTHORIZED BY DOCTOR:BOBBY ZULETA Synthroid 125 mcg ta blet RxNorm: 554089 1 Tablet(s) PO daily 09/27/2015 09/26/2015 Inactive Synthroid 125 mcg ta blet RxNorm: 266443 1 Tablet(s) PO daily 09/27/2015 01/13/2016 Inactive Carafate 1 gram tablet RxNorm: 845094 Tablet(s) TAKE 1 TABLET TWICE A DAY FOR 30 DAYS 09/02/2015 03/29/2016 Inactive Generic For:CARAFATE 1GM 02/08/2015 12:3 6:39 PM sodium bicarbonate 6 50 mg tablet RxNorm: 198162 2 Tablet(s) PO BID 09/02/2015 09/30/2015 Inactive Prilosec 20 mg capsu le,delayed release RxNorm: 451387 TAKE 1 CAPSULE BY JAVON TH ONCE DAILY 08/02/2015 01/28/2016 Inactive Generic For:PRILOSEC 20MG 08/02/2015 10:03:09 AM N O T I C E PRESCRIPTION PREVIOUSLY AUTHORIZED BY DOCTOR:BOBBY ZULETA Zyrtec 10 mg capsule RxNorm: 4512632 1 Capsule(s) PO daily 07/15/2015 08/13/2015 Inactive Keflex 500 mg capsule RxNorm: 844064 1 Capsule(s) PO TID 07/15/2015 07/21/2015 Inactive cetirizine 10 mg cap sean RxNorm: 3246134 1 Capsule(s) PO daily 07/15/2015 08/13/2015 Inactive hydrocodone 5 mg-humberto taminophen 325 mg tablet RxNorm: 301542 1-2 Tablet(s) PO Q6 P RN 06/10/2015 11/16/2016 In active sodium bicarbonate 6 50 mg tablet RxNorm: 088673 2 Tablet(s) PO BID 06/03/2015 08/31/2015 Inactive Detrol LA 4 mg capsu le,extended release RxNorm: 067010 TAKE 1 CAPSULE BY JAVON ONCE DAILY 06/03/2015 12/29/2015 Inactive Generic For:DETROL LA 4MG C AP N O T I C E PRESCRIPTION PREVIOUSLY AUTHORIZED BY DOCTOR:BOBBY ZULETA atenolol 50 mg tablet RxNorm: 406006 1 Tablet(s) PO daily TAKE 1 TABLET BY [facility] DAILY 05/07/2015 08/23/2017 Inactive Generic For:TENORMIN 50MG 05/04/2015 9:07:22 AM spironolactone 25 mg tablet RxNorm: 563720 1 Tablet(s) PO daily 05/06/2015 06/07/2016 Inactive venlafaxine ER 75 mg capsule,extended release 24 hr RxNorm: 550041 1 Capsule(s) PO daily 05/04/2015 06/28/2016 Inactive atenolol 50 mg tablet RxNorm: 896301 TAKE 1 TABLET BY MOUTH DAILY 05/04/2015 05/06/2015 Inactive Generic For:TENORMIN 50MG 05/04/2015 9: 07:22 AM Synthroid 150 mcg ta blet RxNorm: 202700 TAKE 1 TABLET BY MOUT H ONCE DAILY. 04/05/2015 09/26/2015 In active Generic For:SYNTHROID 150MCG TAB 2014 4:45:40 PM N O T I C E PRESCRIPTION PREVIOUSLY AUTHORIZED BY DOCTOR:BOBBY ZULETA Effexor 75 mg tablet RxNorm: 121796 1 Tablet(s) PO daily 04/05/2015 07/03/2015 Inactive Coumadin 5 mg tablet RxNorm: 311126 TAKE 1 AND 1/2 TABLETS BY MOUTH ONCE MYRANDA LY 04/04/2015 09/26/2015 In active Generic For:COUMADIN 5MG TAB N O T I C E PRESCRIPTION PREVIOUSLY AUTHORIZED BY DOCTOR:BOBBY ZULETA clonazepam 0.5 mg ta blet RxNorm: 577803 1 Tablet(s) PO BID 03/13/2015 11/05/2015 Inactive sodium bicarbonate 6 50 mg tablet RxNorm: 546944 2 Tablet(s) PO BID 03/08/2015 06/02/2015 Inactive allopurinol 300 mg t ablet RxNorm: 472717 TAKE 1 TABLET BY MOUT H ONCE DAILY. 03/05/2015 09/30/2015 In active N O T I C E PRESCRIPTION PREVIOUSLY A UTHORIZED BY DOCTOR:BOBBY ZULETA Plavix 75 mg tablet RxNorm: 235054 1 Tablet(s) PO daily 02/12/2015 09/09/2015 Inactive clonazepam 0.5 mg ta blet RxNorm: 067200 1 Tablet(s) PO BID 02/11/2015 03/11/2015 Inactive Carafate 1 gram tablet RxNorm: 702741 TAKE 1 TABLET TWICE A DAY FOR 30 DAYS 02/08/2015 02/07/2015 In active Generic For:CARAFATE 1GM 02/08/2015 12:3 6:39 PM Carafate 1 gram tablet RxNorm: 211171 Tablet(s) TAKE 1 TABLET TWICE A DAY FOR 30 DAYS 02/08/2015 09/01/2015 Inactive Generic For:CARAFATE 1GM 02/08/2015 12:3 6:39 PM potassium chloride 2 0 mEq/15 mL oral liquid RxNorm: 250994 30 Milliliter(s) (40m Eq) PO daily 02/05/2015 12/01/2015 Inactive atenolol 50 mg tablet RxNorm: 220969 1 Tablet(s) PO daily 02/04/2015 05/03/2015 Inactive [SAVINGS FOR NON-COVERED DRUGS -- BIN: 8725, PCN: [id number], Group: XXXXX, ID# [id number], Questions: . THIS IS NOT INSURANCE.] potassium chloride 2 0 mEq/15 mL oral liquid RxNorm: 860407 30 Milliliter(s) (40m Eq) PO daily 01/08/2015 02/04/2015 Inactive potassium chloride 2 0 mEq/15 mL oral liquid RxNorm: 233938 30 Milliliter(s) (40m Eq) PO daily 12/07/2014 01/07/2015 Inactive atenolol 50 mg tablet RxNorm: 342895 1 Tablet(s) PO daily 11/09/2014 11/08/2014 Inactive atenolol 50 mg tablet RxNorm: 758126 1 Tablet(s) PO daily 11/09/2014 02/03/2015 Inactive [SAVINGS FOR NON-COVERED DRUGS -- BIN:00 528, PCN: [email or web address], Group: XXXXX, ID# [id number], Questions: . THIS IS NOT INSURANCE.] Voltaren 1 % topical gel RxNorm: 385357 TOP No St art Date Active verapamil ER (HS) 24 0 mg tablet,extended release 24 hr RxNorm: 560104 1 Tablet(s) PO daily No Start Date Active aspirin 81 mg tablet RxNorm: 920600 1 Tablet(s) PO daily No Start Date Active Zofran 4 mg tablet RxNorm: 131149 1 Tablet(s) PO PRN No Start Date Active B12 1000 mcg RxNorm: 1 Tablet(s) PO daily No Start Date Active magnesium oxide 400 mg capsule RxNorm: 238874 2 Capsule(s) PO BID No Start Date Active Synthroid 150 mcg ta blet RxNorm: 341284 1 Tablet(s) PO daily No Start Date 04/04/2015 Inactive Coumadin 5 mg tablet RxNorm: 815244 1 Tablet(s) PO daily No Start Date 04/03/2015 Inactive cranberry 1,000 mg c apsule RxNorm: 772037 1 Capsule(s) PO daily No Start Date 04/13/2018 Inactive allopurinol 300 mg t ablet RxNorm: 690281 1 Tablet(s) PO daily No Start Date 03/04/2015 Inactive Prilosec 20 mg capsu le,delayed release RxNorm: 755208 1 Capsule(s) PO PRN No Start Date 08/01/2015 Inactive potassium chloride 2 0 mEq/15 mL oral liquid RxNorm: 566003 30 Milliliter(s) (40m Eq) PO daily No Start Date 12/06/2014 Inactive atenolol 50 mg tablet RxNorm: 354981 1 Tablet(s) PO daily No Start Date 08/29/2017 Inactive Lipitor 40 mg tablet RxNorm: 163456 1 Tablet(s) PO daily No Start Date 09/19/2017 Inactive Effexor 75 mg tablet RxNorm: 220000 1 Tablet(s) PO daily No Start Date 04/04/2015 Inactive Carafate 1 gram tablet RxNorm: 449368 1 Tablet(s) PO BID No Start Date 02/07/2015 Inactive clonazepam 0.5 mg ta blet RxNorm: 262322 1 Tablet(s) PO BID No Start Date 02/10/2015 Inactive Plavix 75 mg tablet RxNorm: 015439 1 Tablet(s) PO daily No Start Date 02/11/2015 Inactive sodium bicarbonate 6 50 mg tablet RxNorm: 667641 2 Tablet(s) PO BID No Start Date 09/01/2015 Inactive Lovenox 30 mg/0.3 mL subcutaneous syringe RxNorm: 782902 0.3 Milliliter(s) SQ Q12H No Start Date 03/15/2017 Inactive Fish Oil 1,000 mg ca psule RxNorm: 1 Capsule(s) PO daily No Start Date 01/13/2016 Inactive Detrol LA 4 mg capsu le,extended release RxNorm: 979191 1 Capsule(s) PO daily No Start Date 06/02/2015 Inactive Medication Administered Medication Codes Instruc tions Start Date Status Kenalog 40 mg/mL suspension for injection RxNorm: 2350069 Milliliter 09/02/2018 No longer Active Immunizations Vaccine Codes Date Status SHINGARIX CVX: 121 03/23 completed Assessments Condition Codes Effectiv e Dates Mixed hyperlipidemia ICD-10: E78.2 ICD-9: 272.4 10/05/2018 Other acute sinusitis ICD-10: J01.80 ICD-9: 461.8 09/02/2018 Other allergic rhinitis ICD-10: J30. 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 ICD-9: V58.69 [...] Code Item Item Code Result Date Pt Pbk9145 PT 26.3 seconds 10/13/2018 Pt Ypr0482 INR 2.5 10/13/2018 Pt Pmo4042 Low Intensity - 1.5-2.0 10/13/2018 Pt Ccp6901 Mod intensity - 2.0-3.0 10/13/2018 Pt Ere3493 Hi intensity - 3.0-4.0 10/13/2018 Lipid Ord30 CHOL 180 mg/dL 10/07/2018 Lipid Ord30 HDL 74.0 mg/dl 10/07/2018 Lipid Ord30 TRIG 111 mg/dL 10/07/2018 Lipid Ord30 LDL 84 mg/dL 10/07/2018 Lipid Ord30 C/HDL 2.4 Ratio 10/07/2018 Pt Bhc3753 PT 38.1 seconds 10/07/2018 Pt Qni1385 INR 3.9 10/07/2018 Pt Her2295 Low Intensity - 1.5-2.0 10/07/2018 Pt Srt9175 Mod intensity - 2.0-3.0 10/07/2018 Pt Vtp2414 Hi intensity - 3.0-4.0 10/07/2018 Tsh Ord6 TSH (3rd IS) 0.43 uIU/mL 09/02/2018 Comp Metabolic Sqe142 NA 136 mEq/L 09/02/2018 Comp Metabolic Bvt109 K 4.1 mEq/L 09/02/2018 Comp Metabolic Mqh067 CL 103 mEq/L 09/02/2018 Comp Metabolic Eam150 CO2 20.0 mEq/L 09/02/2018 Comp Metabolic Gpj407 AN ION GAP 17 09/02/2018 Comp Metabolic Glq793 GL UCOSE 124 mg/dL 09/02/2018 Comp Metabolic Lsy876 Cr eat 1.0 mg/dL 09/02/2018 Comp Metabolic Qar483 eG FR 57 ml/min/1.73m2 09/02 Comp Metabolic Wzp892 BUN 24 mg/dL 09/02/2018 Comp Metabolic Biv191 B/ C Ratio 23.8 Ratio 09/02/2018 Comp Metabolic Snn769 CA LCIUM 9.5 mg/dL 09/02/2018 Comp Metabolic Fze549 AL K PHOS 64 U/L 09/02/2018 Comp Metabolic Bxf326 T(SGOT) 24 U/L 09/02/2018 Comp Metabolic Yzq952 AL T(SGPT) 23 U/L 09/02/2018 Comp Metabolic Mmb351 BI LI T 0.5 mg/dL 09/02/2018 Comp Metabolic Xnh038 AL BUMIN 4.2 g/dL 09/02/2018 Comp Metabolic Dky869 TP RO 7.4 g/dL 09/02/2018 Comp Metabolic Qwq936 GL OB 3.2 g/dL 09/02/2018 Comp Metabolic Hse389 A/ G Ratio 1.3 Ratio 09/02/2018 Comp Metabolic Ema528 Os mo 277 mOsmo 09/02/2018 Pt Jsg0873 PT 40.6 seconds 09/02/2018 Pt Xyv6555 INR 4.2 09/02/2018 Pt Umq1115 Low Intensity - 1.5-2.0 09/02/2018 Pt Lgk9621 Mod intensity - 2.0-3.0 09/02/2018 Pt Egd2823 Hi intensity - 3.0-4.0 09/02/2018 Free T4 Yfr457 FREE T4 1.51 ng/dL 09/02/2018 Magnesium Ord90 Mag 1.8 mg/dL 09/02/2018 Pt Szc1590 PT 29.2 seconds 08/05/2018 Pt Ygh4715 INR 2.8 08/05/2018 Pt Ovd7025 Low Intensity - 1.5-2.0 08/05/2018 Pt Iqr6837 Mod intensity - 2.0-3.0 08/05/2018 Pt Iir5287 Hi intensity - 3.0-4.0 08/05/2018 Pt Riw6975 PT 30.2 seconds 07/25/2018 Pt Zff8561 INR 2.9 07/25/2018 Pt Ikv1837 Low Intensity - 1.5-2.0 07/25/2018 Pt Jhq6460 Mod intensity - 2.0-3.0 07/25/2018 Pt Sah1361 Hi intensity - 3.0-4.0 07/25/2018 Pt Pop9502 PT 25.2 seconds 07/19/2018 Pt Pql6595 INR 2.3 07/19/2018 Pt Jvx3317 Low Intensity - 1.5-2.0 07/19/2018 Pt Uox6015 Mod intensity - 2.0-3.0 07/19/2018 Pt Yjk3272 Hi intensity - 3.0-4.0 07/19/2018 Pt Yum6276 PT 17.4 seconds 07/15/2018 Pt Atr8974 INR 1.5 07/15/2018 Pt Gck7875 Low Intensity - 1.5-2.0 07/15/2018 Pt Uud2777 Mod intensity - 2.0-3.0 07/15/2018 Pt Lrq8679 Hi intensity - 3.0-4.0 07/15/2018 Pt Dto9491 PT 17.8 seconds 07/08/2018 Pt Wag9320 INR 1.5 07/08/2018 Pt Hch1555 Low Intensity - 1.5-2.0 07/08/2018 Pt Dfo9948 Mod intensity - 2.0-3.0 07/08/2018 Pt Loj1043 Hi intensity - 3.0-4.0 07/08/2018 Pt Nji7001 PT 19.2 seconds 07/01/2018 Pt Kav4441 INR 1.7 07/01/2018 Pt Bsz0753 Low Intensity - 1.5-2.0 07/01/2018 Pt Fcz7016 Mod intensity - 2.0-3.0 07/01/2018 Pt Emk4052 Hi intensity - 3.0-4.0 07/01/2018 Pt Fgj8056 PT 17.4 seconds 06/23/2018 Pt Boj4631 INR 1.5 06/23/2018 Pt Cvq4006 Low Intensity - 1.5-2.0 06/23/2018 Pt Ssf2003 Mod intensity - 2.0-3.0 06/23/2018 Pt Twk2419 Hi intensity - 3.0-4.0 06/23/2018 Pt Bnt6920 PT 18.4 seconds 06/17/2018 Pt Snm6501 INR 1.6 06/17/2018 Pt Jgv3884 Low Intensity - 1.5-2.0 06/17/2018 Pt Gee6099 Mod intensity - 2.0-3.0 06/17/2018 Pt Fjz6662 Hi intensity - 3.0-4.0 06/17/2018 Sed Rate [...] 30.4 pg 06/08/2018 Cbc With Differential Ord2 Ross% 9.4 % 06/08/2018 Cbc With Differential Ord2 [...] 1.20 K/ul 06/08/2018 Cbc With Differential Ord2 Ross ABS# 0.5 K/ul 06/08/2018 Cbc With Differential Ord2 Eos ABS# 0.1 K/ul 06/08/2018 Cbc With Differential Ord2 Baso ABS# 0.1 K/ul 06/08/2018 C-Reactive Protein Qnt Crqnt CRP 0.1 mg/dl 06/08/2018 Pt Agq0648 PT 17.6 seconds 06/08/2018 Pt Sxk4280 INR 1.5 06/08/2018 Pt Tix1993 Low Intensity - 1.5-2.0 06/08/2018 Pt Wye2507 Mod intensity - 2.0-3.0 06/08/2018 Pt Pej7918 Hi intensity - 3.0-4.0 06/08/2018 Pt Xxq3275 PT 16.8 seconds 05/10/2018 Pt Afi2813 INR 1.4 05/10/2018 Pt Qws0654 Low Intensity - 1.5-2.0 05/10/2018 Pt Xtf9241 Mod intensity - 2.0-3.0 05/10/2018 Pt Mtj4477 Hi intensity - 3.0-4.0 05/10/2018 Pt Shy0875 PT 16.7 seconds 05/04/2018 Pt Dhs9718 INR 1.4 05/04/2018 Pt Loh6471 Low Intensity - 1.5-2.0 05/04/2018 Pt Rls3873 Mod intensity - 2.0-3.0 05/04/2018 Pt Ofa5103 Hi intensity - 3.0-4.0 05/04/2018 Free T4 Irt677 FREE T4 1.09 ng/dL 04/14/2018 Tsh Ord6 TSH (3rd IS) 2.36 uIU/mL 04/14/2018 Pt Gsq0087 PT 20.3 seconds 04/14/2018 Pt Tkf9389 INR 1.8 04/14/2018 Pt Kfv9985 Low Intensity - 1.5-2.0 04/14/2018 Pt Jsv2691 Mod intensity - 2.0-3.0 04/14/2018 Pt Kee2781 Hi intensity - 3.0-4.0 04/14/2018 Lipid Ord30 CHOL 149 mg/dL 04/14/2018 Lipid Ord30 HDL 49.0 mg/dl 04/14/2018 Lipid Ord30 TRIG 161 mg/dL 04/14/2018 Lipid Ord30 LDL 68 mg/dL 04/14/2018 Lipid Ord30 C/HDL 3.0 Ratio 04/14/2018 %Hba1C Hhl537 % HbA1c 30426-4 5.9 % 04/14/2018 %Hba1C Vbh196 Gluc Ave 123 mg/dL 04/14/2018 Comp Metabolic Hyy381 NA 140 mEq/L 04/14/2018 Comp Metabolic Dov727 K 4.1 mEq/L 04/14/2018 Comp Metabolic Jip446 CL 105 mEq/L 04/14/2018 Comp Metabolic Waq768 CO2 28.0 mEq/L 04/14/2018 Comp Metabolic Ins324 AN ION GAP 11 04/14/2018 Comp Metabolic Ubw189 GL UCOSE 112 mg/dL 04/14/2018 Comp Metabolic Qhx249 Cr eat 1.0 mg/dL 04/14/2018 Comp Metabolic Jze825 eG FR 58 ml/min/1.73m2 04/14 Comp Metabolic Gsd030 BUN 20 mg/dL 04/14/2018 Comp Metabolic Rdv873 B/ C Ratio 20.2 Ratio 04/14/2018 Comp Metabolic Omv815 CA LCIUM 10.0 mg/dL 04/14/2018 Comp Metabolic Gmp363 AL K PHOS 51 U/L 04/14/2018 Comp Metabolic Oqm697 T(SGOT) 24 U/L 04/14/2018 Comp Metabolic Tvh294 AL T(SGPT) 21 U/L 04/14/2018 Comp Metabolic Kka323 BI LI T 0.8 mg/dL 04/14/2018 Comp Metabolic Wfw896 AL BUMIN 4.2 g/dL 04/14/2018 Comp Metabolic Rve676 TP RO 7.1 g/dL 04/14/2018 Comp Metabolic Agv267 GL OB 2.9 g/dL 04/14/2018 Comp Metabolic Kjt244 A/ G Ratio 1.5 Ratio 04/14/2018 Comp Metabolic Yrq343 Os mo 283 mOsmo 04/14/2018 Cbc With [...] 30.7 pg 04/14/2018 Cbc With Differential Ord2 Ross% 10.6 % 04/14/2018 Cbc With Differential Ord2 [...] 1.18 K/ul 04/14/2018 Cbc With Differential Ord2 Ross ABS# 0.5 K/ul 04/14/2018 Cbc With Differential Ord2 Eos ABS# 0.2 K/ul 04/14/2018 Cbc With Differential Ord2 Baso ABS# 0.1 K/ul 04/14/2018 Pt Zbq7129 PT 29.3 seconds 02/11/2018 Pt Xuk7707 INR 2.8 02/11/2018 Pt Ojq0332 Low Intensity - 1.5-2.0 02/11/2018 Pt Adg6303 Mod intensity - 2.0-3.0 02/11/2018 Pt Uyk9100 Hi intensity - 3.0-4.0 02/11/2018 Comp Metabolic Utn343 NA 141 mEq/L 01/05/2018 Comp Metabolic Kbx075 K 3.7 mEq/L 01/05/2018 Comp Metabolic Bjq294 CL 102 mEq/L 01/05/2018 Comp Metabolic Vbo194 CO2 29.0 mEq/L 01/05/2018 Comp Metabolic Vft520 AN ION GAP 14 01/05/2018 Comp Metabolic Aux174 GL UCOSE 136 mg/dL 01/05/2018 Comp Metabolic Amn036 Cr eat 1.0 mg/dL 01/05/2018 Comp Metabolic Fpi146 eG FR 61 ml/min/1.73m2 01/05 Comp Metabolic Ocw928 BUN 22 mg/dL 01/05/2018 Comp Metabolic Kki521 B/ C Ratio 22.9 Ratio 01/05/2018 Comp Metabolic Wdj311 CA LCIUM 9.7 mg/dL 01/05/2018 Comp Metabolic Qny428 AL K PHOS 57 U/L 01/05/2018 Comp Metabolic Gtk933 T(SGOT) 21 U/L 01/05/2018 Comp Metabolic Pfn980 AL T(SGPT) 19 U/L 01/05/2018 Comp Metabolic Mac199 BI LI T 0.9 mg/dL 01/05/2018 Comp Metabolic Vyl356 AL BUMIN 4.1 g/dL 01/05/2018 Comp Metabolic Hqm617 TP RO 7.1 g/dL 01/05/2018 Comp Metabolic Xcg767 GL OB 3.0 g/dL 01/05/2018 Comp Metabolic Tsl082 A/ G Ratio 1.4 Ratio 01/05/2018 Comp Metabolic Atd925 Os mo 287 mOsmo 01/05/2018 Free T4 Grq654 FREE T4 1.05 ng/dL 01/05/2018 %Hba1C Ikj989 % HbA1c 64763-1 6.0 % 01/05/2018 %Hba1C Vzh868 Gluc Ave 126 mg/dL 01/05/2018 Cbc With [...] 30.6 pg 01/05/2018 Cbc With Differential Ord2 Ross% 10.5 % 01/05/2018 Cbc With Differential Ord2 [...] 1.27 K/ul 01/05/2018 Cbc With Differential Ord2 Ross ABS# 0.5 K/ul 01/05/2018 Cbc With Differential Ord2 Eos ABS# 0.2 K/ul 01/05/2018 Cbc With Differential Ord2 Baso ABS# 0.1 K/ul 01/05/2018 Pt Rrz2347 PT 20.7 seconds 01/05/2018 Pt Iab8049 INR 1.8 01/05/2018 Pt Fsx3527 Low Intensity - 1.5-2.0 01/05/2018 Pt Qid9191 Mod intensity - 2.0-3.0 01/05/2018 Pt Fcj0753 Hi intensity - 3.0-4.0 01/05/2018 Tsh Ord6 TSH (3rd IS) 2.34 uIU/mL 01/05/2018 Lipid Ord30 CHOL 156 mg/dL 01/05/2018 Lipid Ord30 HDL 48.0 mg/dl 01/05/2018 Lipid Ord30 TRIG 207 mg/dL 01/05/2018 Lipid Ord30 LDL 67 mg/dL 01/05/2018 Lipid Ord30 C/HDL 3.3 Ratio 01/05/2018 Pt Yvf2919 PT 28.3 seconds 11/26/2017 Pt Zpr7173 INR 2.6 11/26/2017 Pt Icg7083 Low Intensity - 1.5-2.0 11/26/2017 Pt Rpz9209 Mod intensity - 2.0-3.0 11/26/2017 Pt Ady2746 Hi intensity - 3.0-4.0 11/26/2017 Pt Smm2002 PT 36.5 seconds 11/19/2017 Pt Wcw4687 INR 3.6 11/19/2017 Pt Lcf9498 Low Intensity - 1.5-2.0 11/19/2017 Pt Bqx4830 Mod intensity - 2.0-3.0 11/19/2017 Pt Ife7885 Hi intensity - 3.0-4.0 11/19/2017 Pt Thg5880 PT 22.9 seconds 10/15/2017 Pt Vfx3334 INR 2.0 10/15/2017 Pt Obu9392 Low Intensity - 1.5-2.0 10/15/2017 Pt Bka5876 Mod intensity - 2.0-3.0 10/15/2017 Pt Mui3172 Hi intensity - 3.0-4.0 10/15/2017 Pt Ajr4782 PT 25.9 seconds 10/01/2017 Pt Xqp6008 INR 2.4 10/01/2017 Pt Hql7152 Low Intensity - 1.5-2.0 10/01/2017 Pt Cve8718 Mod intensity - 2.0-3.0 10/01/2017 Pt Zma4145 Hi intensity - 3.0-4.0 10/01/2017 Pt Wqy3175 PT 20.6 seconds 09/24/2017 Pt Nsq2839 INR 1.8 09/24/2017 Pt Iqq6603 Low Intensity - 1.5-2.0 09/24/2017 Pt Mzf4343 Mod intensity - 2.0-3.0 09/24/2017 Pt Acl9580 Hi intensity - 3.0-4.0 09/24/2017 Pt Hhl7542 PT 21.0 seconds 09/15/2017 Pt Qzi9923 INR 1.8 09/15/2017 Pt Okb0640 Low Intensity - 1.5-2.0 09/15/2017 Pt Lse5575 Mod intensity - 2.0-3.0 09/15/2017 Pt Jue2099 Hi intensity - 3.0-4.0 09/15/2017 Pt Juv5562 PT 19.0 seconds 09/03/2017 Pt Tnr3724 INR 1.6 09/03/2017 Pt Bxo9565 Low Intensity - 1.5-2.0 09/03/2017 Pt Vwc8913 Mod intensity - 2.0-3.0 09/03/2017 Pt Fxp2891 Hi intensity - 3.0-4.0 09/03/2017 Pt Old0335 PT 17.6 seconds 08/23/2017 Pt Jtk2039 INR 1.5 08/23/2017 Pt Hfu6228 Low Intensity - 1.5-2.0 08/23/2017 Pt Xse8947 Mod intensity - 2.0-3.0 08/23/2017 Pt Plk1443 Hi intensity - 3.0-4.0 08/23/2017 Pt Toj4512 PT 12.7 seconds 08/20/2017 Pt Uvk2434 INR 1.0 08/20/2017 Pt Zoy9453 Low Intensity - 1.5-2.0 08/20/2017 Pt Uwq6517 Mod intensity - 2.0-3.0 08/20/2017 Pt Hew1417 Hi intensity - 3.0-4.0 08/20/2017 Pt Vjg0679 PT 12.9 seconds 08/17/2017 Pt Boy5368 INR 1.0 08/17/2017 Pt Tlb1991 Low Intensity - 1.5-2.0 08/17/2017 Pt Nsw4115 Mod intensity - 2.0-3.0 08/17/2017 Pt Afm8228 Hi intensity - 3.0-4.0 08/17/2017 Pt Rtu1914 PT 18.5 seconds 08/10/2017 Pt Mtj2852 INR 1.6 08/10/2017 Pt Gwh7861 Low Intensity - 1.5-2.0 08/10/2017 Pt Gla8156 Mod intensity - 2.0-3.0 08/10/2017 Pt Mim1788 Hi intensity - 3.0-4.0 08/10/2017 Tsh Ord6 [...] 29.3 pg 05/27/2017 Cbc With Differential Ord2 Ross% 8.1 % 05/27/2017 Cbc With Differential Ord2 [...] 1.11 K/ul 05/27/2017 Cbc With Differential Ord2 Ross ABS# 0.6 K/ul 05/27/2017 Cbc With Differential Ord2 Eos ABS# 0.2 K/ul 05/27/2017 Cbc With Differential Ord2 Baso ABS# 0.1 K/ul 05/27/2017 Pt Uzv6287 PT 28.2 seconds 05/27/2017 Pt Xyh0348 INR 2.6 05/27/2017 Pt Ast2069 Low Intensity - 1.5-2.0 05/27/2017 Pt Kww9341 Mod intensity - 2.0-3.0 05/27/2017 Pt Gxl6702 Hi intensity - 3.0-4.0 05/27/2017 Lipid Ord30 CHOL 167 mg/dL 05/27/2017 Lipid Ord30 HDL 49.0 mg/dl 05/27/2017 Lipid Ord30 TRIG 347 mg/dL 05/27/2017 Lipid Ord30 LDL 49 mg/dL 05/27/2017 Lipid Ord30 C/HDL 3.4 Ratio 05/27/2017 Magnesium Ord90 Mag 1.4 mg/dL 05/27/2017 %Hba1C Akd534 % HbA1c 28109-3 5.9 % 05/27/2017 %Hba1C Sce062 Gluc Ave 123 mg/dL 05/27/2017 Comp Metabolic Xkj577 NA 138 mEq/L 05/27/2017 Comp Metabolic Eci417 K 4.1 mEq/L 05/27/2017 Comp Metabolic Jge043 CL 101 mEq/L 05/27/2017 Comp Metabolic Rnk786 CO2 31.0 mEq/L 05/27/2017 Comp Metabolic Jxs652 AN ION GAP 10 05/27/2017 Comp Metabolic Qqq825 GL UCOSE 117 mg/dL 05/27/2017 Comp Metabolic Ovl748 Cr eat 0.9 mg/dL 05/27/2017 Comp Metabolic Cxs492 eG FR 62 ml/min/1.73m2 05/27 Comp Metabolic Nwv456 BUN 25 mg/dL 05/27/2017 Comp Metabolic Nfl061 B/ C Ratio 26.6 Ratio 05/27/2017 Comp Metabolic Men919 CA LCIUM 9.5 mg/dL 05/27/2017 Comp Metabolic Bbv810 AL K PHOS 73 U/L 05/27/2017 Comp Metabolic Wod973 T(SGOT) 18 U/L 05/27/2017 Comp Metabolic Tsc679 AL T(SGPT) 12 U/L 05/27/2017 Comp Metabolic Utj759 BI LI T 0.5 mg/dL 05/27/2017 Comp Metabolic Xxo565 AL BUMIN 4.1 g/dL 05/27/2017 Comp Metabolic Ggj722 TP RO 7.1 g/dL 05/27/2017 Comp Metabolic Tax233 GL OB 3.0 g/dL 05/27/2017 Comp Metabolic Dhb206 A/ G Ratio 1.3 Ratio 05/27/2017 Comp Metabolic Xie722 Os mo 281 mOsmo 05/27/2017 Free T4 Fdg053 FREE T4 0.91 ng/dL 05/27/2017 Pt Cyw2991 PT 29.2 seconds 04/16/2017 Pt Hqx8895 INR 2.7 04/16/2017 Pt Qdv6424 Low Intensity - 1.5-2.0 04/16/2017 Pt Cno4204 Mod intensity - 2.0-3.0 04/16/2017 Pt Dxj3674 Hi intensity - 3.0-4.0 04/16/2017 Pt Vbu8218 PT 30.7 seconds 03/31/2017 Pt Ggw5066 INR 2.9 03/31/2017 Pt Gst6709 Low Intensity - 1.5-2.0 03/31/2017 Pt Hzh8481 Mod intensity - 2.0-3.0 03/31/2017 Pt Pfp8693 Hi intensity - 3.0-4.0 03/31/2017 Pt Lwm8773 PT 21.3 seconds 03/26/2017 Pt Fwv2974 INR 1.9 03/26/2017 Pt Zmv2626 Low Intensity - 1.5-2.0 03/26/2017 Pt Pdp7710 Mod intensity - 2.0-3.0 03/26/2017 Pt Rcc0351 Hi intensity - 3.0-4.0 03/26/2017 Pt Znp9790 PT 19.8 seconds 03/22/2017 Pt Hxa0344 INR 1.7 03/22/2017 Pt Xsa2146 Low Intensity - 1.5-2.0 03/22/2017 Pt Kre9531 Mod intensity - 2.0-3.0 03/22/2017 Pt Nxp1487 Hi intensity - 3.0-4.0 03/22/2017 Pt Fdn7758 PT 15.6 seconds 03/19/2017 Pt Jtl2252 INR 1.3 03/19/2017 Pt Gom1129 Low Intensity - 1.5-2.0 03/19/2017 Pt Evk4914 Mod intensity - 2.0-3.0 03/19/2017 Pt Zom6577 Hi intensity - 3.0-4.0 03/19/2017 Pt Fid9005 PT 13.7 seconds 03/15/2017 Pt Ter1390 INR 1.1 03/15/2017 Pt Alz3247 Low Intensity - 1.5-2.0 03/15/2017 Pt Nvz4693 Mod intensity - 2.0-3.0 03/15/2017 Pt Hfd7358 Hi intensity - 3.0-4.0 03/15/2017 Pt Chz9167 PT 25.8 seconds 01/28/2017 Pt Jkk4633 INR 2.4 01/28/2017 Pt Ctq0924 Low Intensity - 1.5-2.0 01/28/2017 Pt Spj4827 Mod intensity - 2.0-3.0 01/28/2017 Pt Gll4665 Hi intensity - 3.0-4.0 01/28/2017 %Hba1C Uqd503 % HbA1c 26788-8 6.4 % 10/23/2016 %Hba1C Yzv189 Gluc Ave 137 mg/dL 10/23/2016 Comp Metabolic Cjd391 NA 138 mEq/L 10/23/2016 Comp Metabolic Rfu478 K 3.4 mEq/L 10/23/2016 Comp Metabolic Evl759 CL 100 mEq/L 10/23/2016 Comp Metabolic Sow168 CO2 30.0 mEq/L 10/23/2016 Comp Metabolic Knd304 AN ION GAP 11 10/23/2016 Comp Metabolic Ujd150 GL UCOSE 139 mg/dL 10/23/2016 Comp Metabolic Xgr815 Cr eat 0.9 mg/dL 10/23/2016 Comp Metabolic Hsg251 eG FR 62 ml/min/1.73m2 10/23 Comp Metabolic Tzu985 BUN 22 mg/dL 10/23/2016 Comp Metabolic Urd152 B/ C Ratio 23.4 Ratio 10/23/2016 Comp Metabolic Lcd113 CA LCIUM 8.7 mg/dL 10/23/2016 Comp Metabolic Wzs057 AL K PHOS 66 U/L 10/23/2016 Comp Metabolic Muo179 T(SGOT) 20 U/L 10/23/2016 Comp Metabolic Sgl940 AL T(SGPT) 10 U/L 10/23/2016 Comp Metabolic Flj167 BI LI T 0.5 mg/dL 10/23/2016 Comp Metabolic Fyd638 AL BUMIN 3.5 g/dL 10/23/2016 Comp Metabolic Loq969 TP RO 6.3 g/dL 10/23/2016 Comp Metabolic Ojl616 GL OB 2.8 g/dL 10/23/2016 Comp Metabolic Kfd394 A/ G Ratio 1.3 Ratio 10/23/2016 Comp Metabolic Shm918 Os mo 281 mOsmo 10/23/2016 Pt Mru2987 PT 26.8 seconds 10/23/2016 Pt Qjs5105 INR 2.7 10/23/2016 Pt Zre3974 Low Intensity - 1.5-2.0 10/23/2016 Pt Gfc0342 Mod intensity - 2.0-3.0 10/23/2016 Pt Cah0831 Hi intensity - 3.0-4.0 10/23/2016 Pt Ihk9355 PT 28.3 seconds 09/25/2016 Pt Pcc5056 INR 2.8 09/25/2016 Pt Hfp1187 Low Intensity - 1.5-2.0 09/25/2016 Pt Tcz7947 Mod intensity - 2.0-3.0 09/25/2016 Pt Jqf9179 Hi intensity - 3.0-4.0 09/25/2016 Metabolic Ord15 [...] Metabolic Ord15 CALCIUM 8.8 mg/dL 09/25/2016 Pt Mqq5393 PT 30.6 seconds 09/11/2016 Pt Ihh3836 INR 3.2 09/11/2016 Pt Bcj3182 Low Intensity - 1.5-2.0 09/11/2016 Pt Dqv4087 Mod intensity - 2.0-3.0 09/11/2016 Pt Afg9464 Hi intensity - 3.0-4.0 09/11/2016 Comp Metabolic Gmk695 NA 138 mEq/L 09/11/2016 Comp Metabolic Drj305 K 4.4 mEq/L 09/11/2016 Comp Metabolic Tra308 CL 103 mEq/L 09/11/2016 Comp Metabolic Nzy335 CO2 31.0 mEq/L 09/11/2016 Comp Metabolic Aiz720 AN ION GAP 8 09/11/2016 Comp Metabolic Xbo202 GL UCOSE 146 mg/dL 09/11/2016 Comp Metabolic Uzh679 Cr eat 1.0 mg/dL 09/11/2016 Comp Metabolic Frr628 eG FR 60 ml/min/1.73m2 09/11 Comp Metabolic Cdu589 BUN 16 mg/dL 09/11/2016 Comp Metabolic Una962 B/ C Ratio 16.5 Ratio 09/11/2016 Comp Metabolic Bwc279 CA LCIUM 8.7 mg/dL 09/11/2016 Comp Metabolic Ytt326 AL K PHOS 52 U/L 09/11/2016 Comp Metabolic Gkg274 T(SGOT) 19 U/L 09/11/2016 Comp Metabolic Kyp928 AL T(SGPT) 11 U/L 09/11/2016 Comp Metabolic Joo584 BI LI T 0.7 mg/dL 09/11/2016 Comp Metabolic Oul998 AL BUMIN 3.3 g/dL 09/11/2016 Comp Metabolic Czj506 TP RO 5.8 g/dL 09/11/2016 Comp Metabolic Tpi504 GL OB 2.5 g/dL 09/11/2016 Comp Metabolic Crh971 A/ G Ratio 1.3 Ratio 09/11/2016 Comp Metabolic Czq668 Os mo 280 mOsmo 09/11/2016 C-Reactive Protein Qnt Crqnt CRP 0.1 mg/dl 08/21/2016 Comp Metabolic Sfy286 NA 139 mEq/L 08/21/2016 Comp Metabolic Ycm023 K 4.1 mEq/L 08/21/2016 Comp Metabolic Vpc630 CL 102 mEq/L 08/21/2016 Comp Metabolic Axi378 CO2 30.0 mEq/L 08/21/2016 Comp Metabolic Kdc958 AN ION GAP 11 08/21/2016 Comp Metabolic Tot147 GL UCOSE 148 mg/dL 08/21/2016 Comp Metabolic Nbt454 Cr eat 1.0 mg/dL 08/21/2016 Comp Metabolic Las296 eG FR 55 ml/min/1.73m2 08/21 Comp Metabolic Scq863 BUN 21 mg/dL 08/21/2016 Comp Metabolic Ktb159 B/ C Ratio 20.2 Ratio 08/21/2016 Comp Metabolic Syn132 CA LCIUM 9.4 mg/dL 08/21/2016 Comp Metabolic Zlv103 AL K PHOS 63 U/L 08/21/2016 Comp Metabolic Uul620 T(SGOT) 23 U/L 08/21/2016 Comp Metabolic Uea394 AL T(SGPT) 16 U/L 08/21/2016 Comp Metabolic Viz091 BI LI T 0.6 mg/dL 08/21/2016 Comp Metabolic Dnx153 AL BUMIN 3.9 g/dL 08/21/2016 Comp Metabolic Yrw415 TP RO 6.8 g/dL 08/21/2016 Comp Metabolic Mhp300 GL OB 2.9 g/dL 08/21/2016 Comp Metabolic Yaw098 A/ G Ratio 1.4 Ratio 08/21/2016 Comp Metabolic Pcz922 Os mo 283 mOsmo 08/21/2016 Sed Rate Ord21 ESR 16 mm/hr 08/21/2016 Pt Hnu0134 PT 27.2 seconds 08/21/2016 Pt Lds9238 INR 2.7 08/21/2016 Pt Sid6301 Low Intensity - 1.5-2.0 08/21/2016 Pt Irr6071 Mod intensity - 2.0-3.0 08/21/2016 Pt Yek2710 Hi intensity - 3.0-4.0 08/21/2016 Magnesium Ord90 Mag 1.9 mg/dL 08/21/2016 Pt Hou1823 PT 25.9 seconds 06/17/2016 Pt Coe9695 INR 2.5 06/17/2016 Pt Zix7190 Low Intensity - 1.5-2.0 06/17/2016 Pt Sto5392 Mod intensity - 2.0-3.0 06/17/2016 Pt Eae3238 Hi intensity - 3.0-4.0 06/17/2016 Tsh Ord6 hTSH II 2.13 uIU/mL 06/08/2016 Free T4 Aus396 FREE T4 0.79 ng/dL 06/08/2016 Cbc With [...] 26.8 pg 06/08/2016 Cbc With Differential Ord2 Ross% 12.0 % 06/08/2016 Cbc With Differential Ord2 [...] 1.40 K/ul 06/08/2016 Cbc With Differential Ord2 Ross ABS# 0.7 K/ul 06/08/2016 Cbc With Differential Ord2 Eos ABS# 0.3 K/ul 06/08/2016 Cbc With Differential Ord2 Baso ABS# 0.1 K/ul 06/08/2016 %Hba1C Eej714 % HbA1c 12477-0 6.2 % 06/08/2016 %Hba1C Rdo880 Gluc Ave 131 mg/dL 06/08/2016 Comp Metabolic Frw194 NA 138 mEq/L 06/08/2016 Comp Metabolic Hbq908 K 3.9 mEq/L 06/08/2016 Comp Metabolic Ouu212 CL 105 mEq/L 06/08/2016 Comp Metabolic Ntw528 CO2 27.0 mEq/L 06/08/2016 Comp Metabolic Toj712 AN ION GAP 10 06/08/2016 Comp Metabolic Nap048 GL UCOSE 127 mg/dL 06/08/2016 Comp Metabolic Rre225 Cr eat 1.0 mg/dL 06/08/2016 Comp Metabolic Arp792 eG FR 59 ml/min/1.73m2 06/08 Comp Metabolic Xcy152 BUN 19 mg/dL 06/08/2016 Comp Metabolic Iva534 B/ C Ratio 19.4 Ratio 06/08/2016 Comp Metabolic Etv923 CA LCIUM 9.2 mg/dL 06/08/2016 Comp Metabolic Bqh499 AL K PHOS 77 U/L 06/08/2016 Comp Metabolic Qfw472 T(SGOT) 19 U/L 06/08/2016 Comp Metabolic Byw408 AL T(SGPT) 13 U/L 06/08/2016 Comp Metabolic Sdy004 BI LI T 0.5 mg/dL 06/08/2016 Comp Metabolic Uct739 AL BUMIN 3.8 g/dL 06/08/2016 Comp Metabolic Fyx188 TP RO 6.6 g/dL 06/08/2016 Comp Metabolic Gud162 GL OB 2.8 g/dL 06/08/2016 Comp Metabolic Sxr422 A/ G Ratio 1.4 Ratio 06/08/2016 Comp Metabolic Chr917 Os mo 280 mOsmo 06/08/2016 Pt Qmm4142 PT 36.1 seconds 06/08/2016 Pt Idv6147 INR 3.9 06/08/2016 Pt Rgb9606 Low Intensity - 1.5-2.0 06/08/2016 Pt Kri2757 Mod intensity - 2.0-3.0 06/08/2016 Pt Smf9684 Hi intensity - 3.0-4.0 06/08/2016 Lipid Ord30 CHOL 149 mg/dL 06/08/2016 Lipid Ord30 HDL 46.0 mg/dl 06/08/2016 Lipid Ord30 TRIG 279 mg/dL 06/08/2016 Lipid Ord30 LDL 47 mg/dL 06/08/2016 Lipid Ord30 C/HDL 3.2 Ratio 06/08/2016 Pt Anc2306 PT 30.9 seconds 02/12/2016 Pt Gsc1275 INR 3.2 02/12/2016 Pt Bnx5057 Low Intensity - 1.5-2.0 02/12/2016 Pt Ipj8983 Mod intensity - 2.0-3.0 02/12/2016 Pt Gne3027 Hi intensity - 3.0-4.0 02/12/2016 Free T4 Iza652 FREE T4 1.24 ng/dL 09/27/2015 %Hba1C Xjd284 % HbA1c 42504-8 6.4 % 09/27/2015 %Hba1C Ulj769 Gluc Ave 137 mg/dL 09/27/2015 Tsh Ord6 hTSH II 0.37 uIU/mL 09/27/2015 Pt Gat1761 PT 26.2 seconds 09/27/2015 Pt Atr3872 INR 2.5 09/27/2015 Pt Ahu8608 Low Intensity - 1.5-2.0 09/27/2015 Pt Opb8565 Mod intensity - 2.0-3.0 09/27/2015 Pt Syc2541 Hi intensity - 3.0-4.0 09/27/2015 Pt Qbm7272 PT 27.6 seconds 2015 Pt Beg8847 INR 2.7 2015 Pt Iyd9777 Low Intensity - 1.5-2.0 2015 Pt Xbe8607 Mod intensity - 2.0-3.0 2015 Pt Ovw1213 Hi intensity - 3.0-4.0 2015 %Hba1C Fef010 % HbA1c 31336-8 6.1 % 06/11/2015 %Hba1C Gmo671 Gluc Ave 128 mg/dL 06/11/2015 Cbc With [...] Ord2 RDW 15.8 % 06/10/2015 Comp Metabolic Rlc315 NA 139 mEq/L 06/10/2015 Comp Metabolic Xiv876 K 4.1 mEq/L 06/10/2015 Comp Metabolic Egs163 CL 105 mEq/L 06/10/2015 Comp Metabolic Zvn605 CO2 27.0 mEq/L 06/10/2015 Comp Metabolic Vot606 AN ION GAP 11 06/10/2015 Comp Metabolic Bsp536 GL UCOSE 127 mg/dL 06/10/2015 Comp Metabolic Una398 Cr eat 1.0 mg/dL 06/10/2015 Comp Metabolic Pcv050 eG FR 59 ml/min/1.73m2 06/10 Comp Metabolic Dvz974 BUN 21 mg/dL 06/10/2015 Comp Metabolic Pvi337 B/ C Ratio 21.2 Ratio 06/10/2015 Comp Metabolic Wbr283 CA LCIUM 9.2 mg/dL 06/10/2015 Comp Metabolic Tsd862 AL K PHOS 87 U/L 06/10/2015 Comp Metabolic Wap669 T(SGOT) 20 U/L 06/10/2015 Comp Metabolic Tad571 AL T(SGPT) 17 U/L 06/10/2015 Comp Metabolic Ybi648 BI LI T 0.4 mg/dL 06/10/2015 Comp Metabolic Ima563 AL BUMIN 4.1 g/dL 06/10/2015 Comp Metabolic Dje392 TP RO 7.2 g/dL 06/10/2015 Comp Metabolic Bzq423 GL OB 3.1 g/dL 06/10/2015 Comp Metabolic Lmo174 A/ G Ratio 1.3 Ratio 06/10/2015 Comp Metabolic Fei840 Os mo 282 mOsmo 06/10/2015 Tsh Ord6 hTSH II 0.86 uIU/mL 06/10/2015 Lipid Ord30 CHOL 161 mg/dL 06/10/2015 Lipid Ord30 HDL 49.0 mg/dl 06/10/2015 Lipid Ord30 TRIG 208 mg/dL 06/10/2015 Lipid Ord30 LDL 70 mg/dL 06/10/2015 Lipid Ord30 C/HDL 3.3 Ratio 06/10/2015 Pt Uhp6856 PT 25.0 seconds 04/09/2015 Pt Clm3675 INR 2.4 04/09/2015 Pt Xob9348 Low Intensity - 1.5-2.0 04/09/2015 Pt Gnm5072 Mod intensity - 2.0-3.0 04/09/2015 Pt Ucv4477 Hi intensity - 3.0-4.0 04/09/2015 Free T4 Imr219 FREE T4 1.05 ng/dL 01/22/2015 Pt Ocq1242 PT 27.2 seconds 01/22/2015 Pt Pnt6569 INR 2.6 01/22/2015 Pt Bjg0627 Low Intensity - 1.5-2.0 01/22/2015 Pt Jsz3893 Mod intensity - 2.0-3.0 01/22/2015 Pt Fki0396 Hi intensity - 3.0-4.0 01/22/2015 Cbc With [...] Differential Ord2 RDW 15.2 % 01/22/2015 B12 Taw039 B12 402.00 pg/ml 01/22/2015 Tsh Ord6 hTSH II 0.65 uIU/mL 01/22/2015 Lipid Ord30 CHOL 166 mg/dL 01/22/2015 Lipid Ord30 HDL 48.0 mg/dl 01/22/2015 Lipid Ord30 TRIG 264 mg/dL 01/22/2015 Lipid Ord30 LDL 65 mg/dL 01/22/2015 Lipid Ord30 C/HDL 3.5 Ratio 01/22/2015 Comp Metabolic Rfg581 NA 138 mEq/L 01/22/2015 Comp Metabolic Nfr419 K 4.1 mEq/L 01/22/2015 Comp Metabolic Zln665 CL 104 mEq/L 01/22/2015 Comp Metabolic Svr294 CO2 29.0 mEq/L 01/22/2015 Comp Metabolic Vow715 AN ION GAP 9 01/22/2015 Comp Metabolic Hzq206 GL UCOSE 106 mg/dL 01/22/2015 Comp Metabolic Qlq225 Cr eat 0.9 mg/dL 01/22/2015 Comp Metabolic Lge849 eG FR 63 ml/min/1.73m2 01/22 Comp Metabolic Nxe695 BUN 21 mg/dL 01/22/2015 Comp Metabolic Bhv374 B/ C Ratio 22.3 Ratio 01/22/2015 Comp Metabolic Tjb738 CA LCIUM 9.4 mg/dL 01/22/2015 Comp Metabolic Jmg522 AL K PHOS 83 U/L 01/22/2015 Comp Metabolic Msl718 T(SGOT) 23 U/L 01/22/2015 Comp Metabolic Zdm303 AL T(SGPT) 18 U/L 01/22/2015 Comp Metabolic Hgh340 BI LI T 0.8 mg/dL 01/22/2015 Comp Metabolic Bvv080 AL BUMIN 4.2 g/dL 01/22/2015 Comp Metabolic Udn368 TP RO 7.3 g/dL 01/22/2015 Comp Metabolic Fox474 GL OB 3.1 g/dL 01/22/2015 Comp Metabolic Keh527 A/ G Ratio 1.4 Ratio 01/22/2015 Comp Metabolic Hha791 Os mo 279 mOsmo 01/22/2015 Review of [...] Procedure Codes Date THER/PROPH/DIAG INJ SC/IM CPT-4: 14875 09/02/2018 TRIAMCINOLONE ACET I [place] NOS CPT-4: J3301 09/02/2018 URINALYSIS NONAUTO W /O SCOPE CPT-4: 88297 03/05/2017 Vital Signs Date Vital 09/02/2018 Blood Pressure 1: 128/72 Code: 8480-6 BMI: 38.2 Code: 21094-3 Heart Rate 1: 80 bpm Height: 5'1" SpO2: 98% Weight: 202 lbs 04/14/2018 Blood Pressure 1: 116/78 Code: 8480-6 BMI: 41.6 Code: 37583-1 Heart Rate 1: 72 bpm Height: 5'1" SpO2: 98% Weight: 220 lbs 01/18/2018 Blood Pressure 1: 132/74 Code: 8480-6 BMI: 43.5 Code: 18359-8 Heart Rate 1: 70 bpm Height: 5'1" SpO2: 97% Weight: 230 lbs 01/04/2018 Blood Pressure 1: 134/76 Code: 8480-6 BMI: 42.7 Code: 86104-0 Heart Rate 1: 83 bpm Height: 5'1" SpO2: 98% Weight: 226 lbs 09/23/2017 Blood Pressure 1: 124/76 Code: 8480-6 BMI: 42.3 Code: 12080-9 Heart Rate 1: 94 bpm Height: 5'1" SpO2: 96% Weight: 224 lbs 05/27/2017 Blood Pressure 1: 146/78 Code: 8480-6 BMI: 41.4 Code: 16138-7 Heart Rate 1: 85 bpm Height: 5'1" SpO2: 98% Weight: 219 lbs 02/24/2017 Blood Pressure 1: 138/66 Code: 8480-6 BMI: 41.4 Code: 64998-8 Heart Rate 1: 78 bpm Height: 5'1" SpO2: 97% Weight: 219 lbs 11/02/2016 Blood Pressure 1: 144/72 Code: 8480-6 BMI: 46.1 Code: 51922-2 Heart Rate 1: 78 bpm Height: 5'1" SpO2: 98% Weight: 244 lbs 09/30/2016 Blood Pressure 1: 130/76 Code: 8480-6 BMI: 45.0 Code: 84975-7 Heart Rate 1: 86 bpm Height: 5'1" SpO2: 98% Weight: 238 lbs 09/10/2016 Blood Pressure 1: 136/68 Code: 8480-6 BMI: 46.3 Code: 46401-8 Heart Rate 1: 83 bpm Height: 5'1" SpO2: 98% Weight: 245 lbs 08/20/2016 Blood Pressure 1: 142/78 Code: 8480-6 BMI: 45.3 Code: 89838-1 Heart Rate 1: 84 bpm Height: 5'1" SpO2: 99% Weight: 240 lbs 06/08/2016 Blood Pressure 1: 134/76 Code: 8480-6 BMI: 44.2 Code: 56036-5 Heart Rate 1: 86 bpm Height: 5'1" SpO2: 96% Weight: 234 lbs 04/02/2016 Blood Pressure 1: 142/70 Code: 8480-6 BMI: 44.6 Code: 81157-4 Heart Rate 1: 78 bpm Height: 5'1" SpO2: 97% Weight: 236 lbs 01/14/2016 Blood Pressure 1: 146/72 Code: 8480-6 BMI: 44.2 Code: 99448-0 Heart Rate 1: 86 bpm Height: 5'1" SpO2: 96% Weight: 234 lbs 10/02/2015 Blood Pressure 1: 158/76 Code: 8480-6 BMI: 44.2 Code: 84469-9 Heart Rate 1: 67 bpm Height: 5'1" SpO2: 97% Weight: 234 lbs 07/15/2015 Blood Pressure 1: 200/90 Code: 8480-6 Blood Pressure 1: 148/78 Code: 8480-6 BMI: 44.0 Code: 62663-0 Heart Rate 1: 89 bpm Height: 5'1" SpO2: 97% Weight: 233 lbs 06/10/2015 Blood Pressure 1: 140/82 Code: 8480-6 BMI: 44.0 Code: 93105-7 Heart Rate 1: 78 bpm Height: 5'1" [...] wearing crocs and there was a new bahraini on the floor: her foot didn't move [...] Other allergic rhinitis[ICD10: J30.89] Nata Almanza MD, [facility] CPT-4: 84030 09/02/2018 ([id number]) [id number] EST. 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 CPT-4: 71492 04/14/2018 ([id number]) 36066 EST. P ATIENT, LEVEL III Diagnosis: Localized edema[ICD10: R60.0] Diagnosis: Gastro-esophageal reflux disease without esophagitis[ICD10: K21.9] Edna Almanza MD, [facility] CPT-4: 02647 01/18/2018 ([id number]) 27946 EST. P ATIENT, LEVEL IV Diagnosis: Gastro-esophageal reflux disease without esophagitis[ICD10: K21.9] Diagnosis: Localized edema[ICD10: R60.0] Diagnosis: Essential (primary) hypertension[ICD10: I10] Diagnosis: Hypothyroidism, unspecified[ICD10: E03.9] Diagnosis: Impaired fasting glucose[ICD10: R73.01] Edna Almanza MD, [facility] CPT-4: 95260 01/04/2018 ([id number]) 94228 EST. 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 CPT-4: 90341 05/27/2017 91254 EST. PATIENT, LEVEL III Diagnosis: Pain in right hip[ICD10: M25.551] Nata Almanza MD, [facility] CPT-4: 45780 02/24/2017 ([id number]) 99505 EST. [facility] Diagnosis: Essential (primary) hypertension[ICD10: I10] Diagnosis: Localized edema[ICD10: R60.0] Diagnosis: Pain in right hip[ICD10: M25.551] Sarai Almanza MD, [facility] CPT-4: 90013 11/02/2016 ([id number]) 40472 EST. [facility] Diagnosis: Essential (primary) hypertension[ICD10: I10] Diagnosis: Localized edema[ICD10: R60.0] Sarai Almanza MD, [facility] CPT-4: 77945 09/30/2016 33230 EST. PATIENT, LEVEL IV Diagnosis: Localized edema[ICD10: R60.0] Diagnosis: Pain in joints of left hand[ICD10: M25.542] Diagnosis: Pain in joints of right hand[ICD10: M25.541] Nata Almanza MD, [facility] CPT-4: 80893 09/10/2016 69338 EST. PATIENT, LEVEL IV Diagnosis: Localized edema[ICD10: R60.0] Diagnosis: Pain in joints of left hand[ICD10: M25.542] Diagnosis: Pain in joints of right hand[ICD10: M25.541] Diagnosis: Other fatigue[ICD10: R53.83] Nata Almanza MD, [facility] CPT-4: 76938 08/20/2016 40764 EST. 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 CPT-4: 40533 06/08/2016 61403 EST. PATIENT, LEVEL IV Diagnosis: Other allergic rhinitis[ICD10: J30.89] Diagnosis: Acute laryngopharyngitis[ICD10: J06.0] Nata Almanza MD, [facility] CPT-4: 13356 04/02/2016 79925 EST. PATIENT, LEVEL IV Diagnosis: Left upper quadrant pain[ICD10: R10.12] [facility] CPT-4: 56476 01/14/2016 86870 EST. PATIENT, LEVEL IV Diagnosis: Pain in left shoulder[ICD10: M25.512] Diagnosis: Body mass index (BMI) 40.0-44.9, adult[ICD10: Z68.41] Nata Almanza MD, [facility] CPT-4: 89408 10/02/2015 43885 EST. 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 CPT-4: 92980 07/15/2015 ([id number]) 28712 EST. 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: Other half-way (current) drug therapy[ICD10: Z79.899] [facility] CPT-4: 97449 06/10/2015 ([id number]) OFFICE VISI T, NEW - LEVEL 4 Diagnosis: ESSENTIAL HYPERTENSION[ICD9: 401.9] Diagnosis: HYPOTHYROIDISM[ICD9: 244.9] Diagnosis: ENCNTR LONG-RX USE NEC[ICD9: V58.69] Diagnosis: HYPERLIPIDEMIA[ICD9: 272.4] Diagnosis: Vitamin B12 deficiency[ICD9: 266.2] Diagnosis: Status post gastric surgery[ICD9: V45.89] Diagnosis: Snoring[ICD9: 786.09] [facility] CPT-4: 58192 01/22/2015 Plan of Care Planned Activity Notes [...] allergy spray. 09/02/2018 Appointment: Nata Hsu WPtel: [facility]4 [facility] (15 min) Moderate 09/02/2018 Patient Education: Patient [...] A1C 04/14/2018 Appointment: Edna Douglas WPtel: [phone] [phone] (15 min) Moderate 04/14/2018 Patient Education: Patient [...] to further attempt to reduce peripheral edema. KBFS-ylnmrggg-qwwnjayi prilosec BID and carafate QID -discussed low spice, low acidic diet 01/18/2018 [facility]ment: [phone] [place] (15 min) Moderate 01/18/2018 Patient Education: Patient [...] of control. 01/04/2018 Appointment: Edna Douglas WPtel[phone] (30 min) Complex 01/04/2018 Patient Education: Patient Medication Summary Completed 01/04/2018 Care Plan: SCREENINGMAMMOGRAPHYDIGITAL LOINC : 38990-3 Pending 01/04/2018 Visit Plan: Abdominal hernia - not able to be taken to surgery by local providers and pt has been seen at [facility] and that surgeon felt like Kat would [...] home. 09/23/2017 [phone] ([facility]) Moderate [...] medications. 05/27/2017 Appointment: Edna Douglas WPtel: [phone] [place] [phone] [place] (30 min) Complex 05/27/2017 Patient Education: [...] [place]. 02/24/2017 Appointment: Nata Hsu WPtel: [phone] [facility] [place] (30 min) Complex 02/24/2017 Patient Education: [...] [place]. 11/02/2016 Appointment: Sarai Almanza WPtel: [phone] [facility] (15 min) Moderate 11/02/2016 Patient Education: Patient Medication Summary Completed 11/02/2016 Patient Education: Obesity Completed 11/02/2016 Patient Education: Patient Medication Summary Completed 10/08/2016 Visit Plan: Hypertension - well alesha ramirez - continue with current medications, continue [...] edema. 09/30/2016 App[facility]ment: [phone] (15 min) Moderate 09/30/2016 Patient Education: [...] [facility]el[facility] (30 min) Complex 09/10/2016 Patient Education: Patient [...] edema. 08/20/2016 Appointment: Nata Hsu WPtel[facility] (30 min) Complex 08/20/2016 Patient Education: Patient Medication Summary Completed 08/20/2016 Referral: Rosa Ot[facility] Referral Initiated 07/02/2016 Visit Plan: Chronic [...] 06/08/2016 Care Plan: Referral Order SNOMED-CT : [id number] Pending 06/08/2016 Visit Plan: URI - Pt [...] [facility]el[facility] (30 min) Complex 04/02/2016 Patient Education: [...] pain 01/14/2016 Appointment: Edna Douglas WPtel: [facility]5 [phone] (30 min) Complex 01/14/2016 Patient Education: Patient Medication Summary Completed 01/14/2016 Patient Education: Obesity Completed 01/14/2016 Care Plan: BMI Above normal followup DAVID F-MGMT EDUC & TRAIN 1 PT Pending 10/24/2015 Care Plan: X-RAY EXAM OF SHOULDER [facility] : 85563-5 Pending 10/24/2015 Visit Plan: Left shoulder pain [...] weight check. 10/02/2015 Appointment: Edna Douglas WPtel: [phone] (15 min) Moderate 10/02/2015 Patient Education: [...] [facility]el[facility] (15 min) Moderate 04/22/2015 Visit Plan: [...] have surgical fixation - planning occurring at [facility] [place]. Snoring - Sleep apnea symptoms with difficulty [...] [facility]Ptel[facility] [place] ([place] New Patient 01/22/2015 Patient Education: Patient Medication Summary Completed 01/22/2015 Patient Education: Hypertension Completed 01/22/2015 [facility] Referral Initiated Instructions Comment . Hypertension [...] go to the ER with acute pain Come in Wednesday to [facility] PT [...] if they worsen, or with other concerns. XRAY RIGHT SHOULDER CUT BACK ON SODIUM/SALTY [...] to further attempt to reduce peripheral edema. GCDS-koivpjue-jxnwjzqz prilosec BID and carafate QID -discussed low [...] providers and pt has been seen at [facility] and that surgeon felt like Kat would be better served by Dr. Betancur at [facility]. I have recommended a referral to dr. cecelia beatncur at . Chronic anticoagulation - continue with [...] have surgical fixation - planning occurring at [facility] [place]. Snoring - Sleep apnea symptoms with difficulty [...]
--- OUTSIDE RECORDS SUMMARY | 2020-01-16 22:56 | XMS REPORT | CCD ---
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 Name Role Phone PP Unavailable CCM Unavailable Summary Purpose Interface Exchange Insurance Providers Payer name Policy type / Coverage type Covered constitution party ID Effective Begin Date Effective End Date WPS Medicare Part B Medicare Part B [id number] 2017 Unknown [employer] [place] Medicare Part B [id number] 2017 Unknown Family history Father Diagnosis Age At Onset Hyperlipidemia Unknown Heart Attack Unknown Mother Diagnosis Age At Onset Arthritis Unknown Social History Social History Element Codes Description Effective Dates Marital status Unknown M arried Nathan 09/30/2016 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 Number of children Unknown 3 01/22/[address]: 617500948 Never smoker 01/22/[address]: 377173596 Never drinks alcohol 01/22/2015 Allergies, Adverse Reactions, Alerts Substance Reaction Codes Entered Date Inactivated Date Status * NO KNOWN DRUG ORIN RGIES Unknown 01/22/2015 No Inactive Date Active Past Medical History Illness Codes Condition Status Onset Date Resolved Date Mixed hyperlipidemia ICD-9: 272.4 ICD-10: E78.2 Active 06/09/2015 Unknown Hypothyroidism, unsp ecified ICD-9: 244.9 ICD-10: E03.9 Active 05/27/2017 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 [...] ICD-9: 244.9 ICD-10: E03.9 05/27/2017 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 [...] Date Stop Date Sta tus Fill Instructions clonazepam 0.5 mg ta blet RxNorm: 252674 1 Tablet(s) PO BID 11/16/2018 04/14/2019 Active Carafate 1 gram tablet RxNorm: 812042 TAKE ONE TABLET BY MOUTH BEFORE MEALS AN D AT BEDTIME 11/15/2018 12/10/2018 Active atenolol 100 mg tablet RxNorm: 707776 TAKE ONE TABLET BY MOUTH DAILY 10/24/2018 05/21/2019 Ac tive potassium chloride E R 20 mEq tablet,extended release RxNorm: 641043 2 Tablet(s) PO daily 10/18/2018 02/14/2019 Active potassium chloride E R 20 mEq tablet,extended release RxNorm: 519206 1 Tablet(s) PO daily 10/03/2018 10/17/2018 Inactive Carafate 1 gram tablet RxNorm: 385492 TAKE ONE TABLET BY MOUTH BEFORE MEALS AN D AT BEDTIME 09/26/2018 11/14/2018 Inactive Plavix 75 mg tablet RxNorm: 553673 TAKE ONE TABLET BY MOUTH DAILY 09/02/2018 02/28/2019 Ac tive prednisone 10 mg tablet RxNorm: 898134 Tablet(s) PO 09/02/2018 No Stop Date Active 60,60,50,50,40,40,30,30,20,20,10,10 Synthroid 125 mcg ta blet RxNorm: 516567 1 Tablet(s) PO daily 09/02/2018 08/27/2019 Active potassium chloride E R 20 mEq tablet,extended release RxNorm: 060581 1 Tablet(s) PO daily 09/02/2018 09/01/2018 Inactive potassium chloride E R 20 mEq tablet,extended release RxNorm: 804017 1 Tablet(s) PO daily 09/02/2018 10/02/2018 Inactive Synthroid 125 mcg ta blet RxNorm: 724502 1 Tablet(s) PO daily 09/02/2018 09/01/2018 Inactive Keflex 500 mg capsule RxNorm: 593220 1 Capsule(s) PO TID 09/02/2018 09/08/2018 Inactive Kenalog 40 mg/mL mxaine pension for injection RxNorm: 4117321 Milliliter(s) Inj 09/02/2018 09/02/2018 In active Lipitor 40 mg tablet RxNorm: 917388 TAKE ONE TABLET BY MOUTH DAILY 07/29/2018 07/23/2019 Ac tive Coumadin 1 mg tablet RxNorm: 819958 TAKE ONE TABLET BY MOUTH DAILY 07/29/2018 10/26/2018 In active Carafate 1 gram tablet RxNorm: 061906 TAKE ONE TABLET BY MOUTH BEFORE MEALS AN D AT BEDTIME 07/28/2018 09/17/2018 Inactive Coumadin 4 mg tablet RxNorm: 373328 2 Tablet(s) daily 07/11/2018 02/05/2019 Active Generi c For:COUMADIN 4MG 07/22/2017 8:58:26 AM Coumadin 5 mg tablet RxNorm: 963980 Tablet(s) TAKE 1 TABLET BY MOUTH DIRE CTED 07/08/2018 01/03/2019 Ac tive Generic For:COUMADIN 5MG TAB 03/21/2018 9:13:00 AM Coumadin 4 mg tablet RxNorm: 984202 Tablet(s) TAKE 1 TABLET BY MOUTH THREE T IMES PER WEEK (WEDNESDAY, WEDNESDAY AND WEDNESDAY) 07/08/2018 07/10/2018 Inactive Gene andre For:COUMADIN 4MG 07/22/2017 8:58:26 AM Coumadin 1 mg tablet RxNorm: 513942 1 Tablet(s) PO daily 07/08/2018 08/06/2018 Inactive venlafaxine ER 75 mg capsule,extended release 24 hr RxNorm: 214855 Capsule(s) TAKE 1 CAPSULE BY MOUTH ONCE DAILY 06/23/2018 06/17/2019 Active Generic For:*EFFEXOR XR 75MG 06/19/2017 12:23:45 PM sodium bicarbonate 6 50 mg tablet RxNorm: 864817 Tablet(s) TAKE 2 TABL ETS BY MOUTH TWICE DAILY 06/23/2018 12/19/2018 Active 12/20/2017 9:10:59 AM Coumadin 1 mg tablet RxNorm: 910918 1 Tablet(s) PO daily 06/17/2018 07/07/2018 Inactive Coumadin 1 mg tablet RxNorm: 167554 1 Tablet(s) PO daily 06/17/2018 06/16/2018 Inactive clonazepam 0.5 mg ta blet RxNorm: 267854 1 Tablet(s) PO BID 06/08/2018 11/03/2018 Inactive spironolactone 25 mg tablet RxNorm: 069580 TAKE 1 TABLET BY MOUT H EVERY DAY 05/18/2018 05/12/2019 Ac tive Generic For:*ALDACTONE 25MG 05/18/2018 8:57:50 AM Carafate 1 gram tablet RxNorm: 768667 TAKE ONE TABLET BY MOUTH BEFORE MEALS AN D AT BEDTIME 05/18/2018 07/12/2018 Inactive Generic For:CARAFATE 1GM 1 07/18/2017 8:38:28 AM Synthroid 137 mcg ta blet RxNorm: 703857 TAKE 1 TABLET BY MOUT H ONCE DAILY 05/18/2018 08/30/2018 In active Generic For:SYNTHROID 137MCG TAB 2017 8:57:54 AM allopurinol 300 mg t ablet RxNorm: 555434 TAKE 1 TABLET BY MOUT H ONCE DAILY. 04/18/2018 10/14/2018 In active Generic For:ZYLOPRIM 300 MG TABLET 03/22 9:13:47 AM Lasix 20 mg tablet RxNorm: 889187 TAKE ONE TABLET BY MOUTH DAILY 04/18/2018 08/15/2018 In active Generic For:LASIX 20MG 04/18/2018 9:13: 50 AM Carafate 1 gram tablet RxNorm: 640169 TAKE ONE TABLET BY MOUTH BEFORE MEALS AN D AT BEDTIME 04/18/2018 05/17/2018 Inactive Generic For:CARAFATE 1GM 1 9:32:51 AM Coumadin 5 mg tablet RxNorm: 032515 TAKE 1 TABLET BY MOUTH DIRECTED 03/21/2018 07/07/2018 In active Generic For:COUMADIN 5MG TAB 03/21/2018 9:13:00 AM Carafate 1 gram tablet RxNorm: 318060 TAKE ONE TABLET BY MOUTH BEFORE MEALS AN D AT BEDTIME 03/21/2018 04/17/2018 Inactive Generic For:CARAFATE 1GM 1 9:14:24 AM Carafate 1 gram tablet RxNorm: 231229 1 Tablet(s) PO AC & HS 02/17/2018 03/20/2018 Inactive atenolol 100 mg tablet RxNorm: 219823 1 Tablet(s) PO daily 02/04/2018 09/01/2018 Inactive atenolol 50 mg tablet RxNorm: 353188 1 Tablet(s) PO daily 02/03/2018 02/03/2018 Inactive omeprazole 20 mg cap sean,delayed release RxNorm: 959575 1 Capsule(s) BID 01/21/2018 01/15/2019 Ac tive Generic For:PRILOSEC 20MG 07/22/2017 8:5 8:20 AM Carafate 1 gram tablet RxNorm: 246821 1 Tablet(s) PO AC & HS 01/21/2018 02/16/2018 Inactive Carafate 1 gram tablet RxNorm: 037151 1 Tablet(s) PO AC & HS 01/18/2018 01/20/2018 Inactive Carafate 1 gram tablet RxNorm: 375154 1 Tablet(s) PO AC & HS 01/18/2018 02/27/2018 Inactive Carafate 1 gram tablet RxNorm: 599760 1 Tablet(s) PO AC & HS TAKE ONE TABLET B Y MOUTH TWICE DAILY 01/18/2018 05/17/2018 Inactive Generic For:CARAFATE 1GM 0 12/20/2017 9:10:56 AM omeprazole 20 mg cap sean,delayed release RxNorm: 896341 Capsule(s) TAKE 1 CAP SEAN BY MOUTH EVERY DAY 01/17/2018 01/20/2018 Inactive Generic For:PRILOSEC 20MG 0 07/22/2017 8:58:20 AM omeprazole 20 mg cap sean,delayed release RxNorm: 135493 Capsule(s) TAKE 1 CAP SEAN BY MOUTH EVERY DAY 01/14/2018 01/16/2018 Inactive Generic For:PRILOSEC 20MG 07/22/2017 8:58:20 AM clonazepam 0.5 mg ta blet RxNorm: 668082 1 Tablet(s) PO BID 01/07/2018 06/05/2018 Inactive Plavix 75 mg tablet RxNorm: 933739 1 Tablet(s) PO daily 01/07/2018 07/05/2018 Inactive Carafate 1 gram tablet RxNorm: 683554 1 Tablet(s) PO AC & HS 01/04/2018 01/17/2018 Inactive Lasix 20 mg tablet RxNorm: 943518 TAKE ONE TABLET BY MOUTH DAILY 12/20/2017 04/17/2018 In active Generic For:LASIX 20MG 12/20/2017 9:11: 03 AM sodium bicarbonate 6 50 mg tablet RxNorm: 278169 TAKE 2 TABLETS BY JAVON TH TWICE DAILY 12/20/2017 06/17/2018 In active 12/20/2017 9:10:59 AM Carafate 1 gram tablet RxNorm: 718723 TAKE ONE TABLET BY MOUTH TWICE DAILY 12/20/2017 01/17/2018 In active Generic For:CARAFATE 1GM 12/20/2017 9:1 0:56 AM Synthroid 137 mcg ta blet RxNorm: 765040 TAKE 1 TABLET BY MOUT H ONCE DAILY 11/19/2017 05/17/2018 In active Generic For:SYNTHROID 137MCG TAB 2017 8:58:04 AM Detrol LA 4 mg capsu le,extended release RxNorm: 214576 TAKE 1 CAPSULE BY JAVON TH ONCE DAILY 10/20/2017 04/13/2018 Inactive Generic For:DETROL LA 4MG C AP 10/20/2017 9:01:56 AM allopurinol 300 mg t ablet RxNorm: 770484 TAKE 1 TABLET BY MOUT H ONCE DAILY. 10/20/2017 04/17/2018 In active Generic For:ZYLOPRIM 300 MG TABLET 07/2017 9:01:59 AM Coumadin 5 mg tablet RxNorm: 474409 1 Tablet(s) PO UD 10/01/2017 03/20/2018 Inactive cyclobenzaprine 5 mg tablet RxNorm: 597117 1 Tablet(s) PO TID as needed myscle spasm 09/23/2017 10/12/2017 Inactive Lipitor 40 mg tablet RxNorm: 072884 TAKE 1 TABLET BY MOUTH ONCE DAILY 09/20/2017 07/28/2018 In active Generic For:LIPITOR 40MG 09/20/2017 8:5 6:04 AM atenolol 100 mg tablet RxNorm: 524134 1 Tablet(s) PO daily 08/30/2017 02/03/2018 Inactive atenolol 50 mg tablet RxNorm: 036117 1 Tablet(s) PO daily 08/30/2017 08/30/2017 Inactive Lovenox 30 mg/0.3 mL subcutaneous syringe RxNorm: 134299 0.3 Milliliter(s) SQ Q12H 08/24/2017 09/06/2017 In active Lasix 20 mg tablet RxNorm: 195832 TAKE ONE TABLET BY MOUTH DAILY 08/23/2017 12/19/2017 In active Generic For:LASIX 20MG 08/21/2017 9:04: 27 AM Synthroid 137 mcg ta blet RxNorm: 159560 TAKE 1 TABLET BY MOUT H ONCE DAILY 08/23/2017 11/18/2017 In active Generic For:SYNTHROID 137MCG TAB 2017 9:04:30 AM Lovenox 30 mg/0.3 mL subcutaneous syringe RxNorm: 254391 0.3 Milliliter(s) SQ Q12H 08/10/2017 08/23/2017 In active clonazepam 0.5 mg ta blet RxNorm: 781810 1 Tablet(s) PO BID 08/04/2017 12/30/2017 Inactive omeprazole 20 mg cap sean,delayed release RxNorm: 506010 TAKE 1 CAPSULE BY JAVON TH EVERY DAY 07/22/2017 01/13/2018 Inactive Generic For:PRILOSEC 20MG 07/22/2017 8: 58:20 AM Coumadin 4 mg tablet RxNorm: 599515 TAKE 1 TABLET BY MOUTH THREE TIMES PER W PAIMIUT (WEDNESDAY, WEDNESDAY AND WEDNESDAY) 07/22/2017 10/03/2018 Inactive Generic For:COUMADIN 4MG 07/22/2017 8:58:26 AM Coumadin 4 mg tablet RxNorm: 393951 TAKE 1 TABLET BY MOUTH THREE TIMES PER W PAIMIUT (WEDNESDAY, WEDNESDAY AND WEDNESDAY) 07/22/2017 02/16/2018 Inactive Generic For:COUMADIN 4MG 07/22/2017 8:58:26 AM sodium bicarbonate 6 50 mg tablet RxNorm: 874918 TAKE 2 TABLETS BY JAVON TH TWICE DAILY 06/22/2017 12/18/2017 In active 06/19/2017 12:23:30 PM venlafaxine ER 75 mg capsule,extended release 24 hr RxNorm: 159005 TAKE 1 CAPSULE BY MOUTH ONCE DAILY 06/22/2017 06/16/2018 Inactive Generic For:*EFFEXOR XR 75M G 06/19/2017 12:23:45 PM Coumadin 5 mg tablet RxNorm: 947328 1 Tablet(s) PO UD 06/01/2017 09/30/2017 Inactive Keflex 500 mg capsule RxNorm: 018528 1 Capsule(s) PO TID 05/27/2017 06/02/2017 Inactive Synthroid 137 mcg ta blet RxNorm: 220909 TAKE 1 TABLET BY MOUT H ONCE DAILY 05/24/2017 08/21/2017 In active Generic For:SYNTHROID 137MCG TAB 2016 8:55:59 AM Carafate 1 gram tablet RxNorm: 889688 TAKE ONE TABLET BY MOUTH TWICE DAILY 05/24/2017 12/19/2017 In active Generic For:CARAFATE 1GM 05/24/2017 8:5 5:54 AM spironolactone 25 mg tablet RxNorm: 383973 1 Tablet(s) PO daily 05/24/2017 05/17/2018 Inactive Detrol LA 4 mg capsu le,extended release RxNorm: 402827 1 Capsule(s) PO daily TAKE 1 CAPSULE BY MOUTH ONCE DAILY 05/10/2017 10/19/2017 Inactive Generic For:DETROL LA 4MG CAP 02/19/2017 2:36:00 PM Lasix 20 mg tablet RxNorm: 442755 TAKE ONE TABLET BY MOUTH DAILY 04/23/2017 08/20/2017 In active Generic For:LASIX 20MG 04/23/2017 9:04: 01 AM Coumadin 4 mg tablet RxNorm: 923544 TAKE 1 TABLET BY MOUTH THREE TIMES PER W PAIMIUT (WEDNESDAY, WEDNESDAY AND WEDNESDAY) 04/23/2017 07/21/2017 Inactive Generic For:COUMADIN 4MG 04/23/2017 9:04:05 AM allopurinol 300 mg t ablet RxNorm: 010389 TAKE 1 TABLET BY MOUT H ONCE DAILY. 04/23/2017 10/19/2017 In active Generic For:ZYLOPRIM 300 MG TABLET 08/2016 9:03:57 AM potassium chloride 2 0 mEq/15 mL oral liquid RxNorm: 687446 Milliliter(s) 30 Milliliter(s) (40mEq) PO daily 03/24/2017 07/21/2017 Inactive Lovenox 30 mg/0.3 mL subcutaneous syringe RxNorm: 542576 0.3 Milliliter(s) SQ Q12H 03/22/2017 03/26/2017 In active Lovenox 30 mg/0.3 mL subcutaneous syringe RxNorm: 878546 0.3 Milliliter(s) SQ Q12H 03/19/2017 03/20/2017 In active Lovenox 30 mg/0.3 mL subcutaneous syringe RxNorm: 510782 0.3 Milliliter(s) SQ Q12H 03/16/2017 03/18/2017 In active clonazepam 0.5 mg ta blet RxNorm: 713676 1 Tablet(s) PO BID 03/02/2017 10/03/2018 Inactive Lovenox 30 mg/0.3 mL subcutaneous syringe RxNorm: 501704 1 injection SQ BID do NOT take the night time dose the day before surgery, or the morning dose the day of surgery 03/01/2017 03/07/2017 Inactive Lovenox 30 mg/0.3 mL subcutaneous syringe RxNorm: 089594 1 injection SQ BID 03/01/2017 02/28/2017 In active Detrol LA 4 mg capsu le,extended release RxNorm: 592858 TAKE 1 CAPSULE BY JAVON TH ONCE DAILY 02/19/2017 05/09/2017 Inactive Generic For:DETROL LA 4MG C AP 02/19/2017 2:36:00 PM hydrocodone 5 mg-humberto taminophen 325 mg tablet RxNorm: 158066 1-2 Tablet(s) PO Q6 P RN 02/04/2017 No Stop Date Active Zetia 10 mg tablet RxNorm: 776176 TAKE 1 TABLET BY MOUTH DAILY 01/25/2017 04/13/2018 Inactive 01/23/2017 9:03:48 AM omeprazole 20 mg cap sean,delayed release RxNorm: 385919 TAKE 1 CAPSULE BY JAVON TH EVERY DAY 01/25/2017 07/21/2017 Inactive Generic For:PRILOSEC 20MG 01/23/2017 9: 03:45 AM Coumadin 4 mg tablet RxNorm: 907995 TAKE 1 TABLET BY MOUTH THREE TIMES PER W PAIMIUT (WEDNESDAY, WEDNESDAY AND WEDNESDAY) 01/25/2017 04/22/2017 Inactive Generic For:COUMADIN 4MG 01/23/2017 9:03:51 AM sodium bicarbonate 6 50 mg tablet RxNorm: 762586 TAKE 2 TABLETS BY JAVON TH TWICE DAILY 12/24/2016 06/21/2017 In active 12/24/2016 9:09:27 AM Lasix 20 mg tablet RxNorm: 203466 1 Tablet(s) PO daily 12/24/2016 04/22/2017 Inactive Synthroid 137 mcg ta blet RxNorm: 808355 TAKE 1 TABLET BY MOUT H ONCE DAILY 11/24/2016 05/22/2017 In active Generic For:SYNTHROID 137MCG TAB 2016 9:04:37 AM Coumadin 4 mg tablet RxNorm: 872524 TAKE 1 TABLET BY MOUTH THREE TIMES PER W PAIMIUT (WEDNESDAY, WEDNESDAY AND WEDNESDAY) 11/24/2016 01/22/2017 Inactive Generic For:COUMADIN 4MG 11/24/2016 9:04:41 AM hydrocodone 5 mg-humberto taminophen 325 mg tablet RxNorm: 788852 1-2 Tablet(s) PO Q6 P RN 11/17/2016 02/03/2017 In active Carafate 1 gram tablet RxNorm: 283397 TAKE ONE TABLET BY MOUTH TWICE DAILY 10/27/2016 05/23/2017 In active Generic For:CARAFATE 1GM 10/26/2016 8:3 9:42 AM allopurinol 300 mg t ablet RxNorm: 456327 Tablet(s) TAKE 1 TABL ET BY MOUTH ONCE DAILY. 10/26/2016 04/22/2017 Inactive Lipitor 40 mg tablet RxNorm: 453940 1 Tablet(s) PO daily 09/25/2016 09/19/2017 Inactive Coumadin 4 mg tablet RxNorm: 227283 TAKE 1 TABLET BY MOUTH THREE TIMES PER W PAIMIUT (WEDNESDAY, WEDNESDAY AND WEDNESDAY) 09/25/2016 11/23/2016 Inactive Generic For:COUMADIN 4MG 09/25/2016 8:55:58 AM Zetia 10 mg tablet RxNorm: 349628 1 Tablet(s) PO daily 09/25/2016 01/22/2017 Inactive gave 1 month of samples clonazepam 0.5 mg ta blet RxNorm: 644807 1 Tablet(s) PO BID 09/21/2016 10/03/2018 Inactive Lasix 20 mg tablet RxNorm: 709609 1 Tablet(s) PO daily 09/15/2016 12/23/2016 Inactive potassium chloride 2 0 mEq/15 mL oral liquid RxNorm: 854813 Milliliter(s) 30 Milliliter(s) (40mEq) PO daily 09/15/2016 01/12/2017 Inactive Lasix 20 mg tablet RxNorm: 798255 2 Tablet(s) PO daily 09/10/2016 09/12/2016 Inactive Lasix 20 mg tablet RxNorm: 616322 1 Tablet(s) PO daily 08/28/2016 08/30/2016 Inactive Lasix 20 mg tablet RxNorm: 1 Tablet(s) PO daily 08/20/2016 08/22/2016 Inactive Detrol LA 4 mg capsu le,extended release RxNorm: 865977 TAKE 1 CAPSULE BY JAVON TH ONCE DAILY 07/27/2016 02/18/2017 Inactive Generic For:DETROL LA 4MG C AP 07/27/2016 9:08:27 AM Coumadin 4 mg tablet RxNorm: 564057 1 Tablet(s) PO 3 x week wed and sun 07/27/2016 09/24/2016 In active omeprazole 20 mg cap sean,delayed release RxNorm: 657148 Capsule(s) PO TAKE 1 CAPSULE BY MOUTH ONCE DAILY 07/27/2016 01/22/2017 Inactive venlafaxine ER 75 mg capsule,extended release 24 hr RxNorm: 773036 1 Capsule(s) PO daily 06/29/2016 06/21/2017 Inactive sodium bicarbonate 6 50 mg tablet RxNorm: 347775 TAKE 2 TABLETS BY JAVON TH TWICE DAILY 06/29/2016 12/23/2016 In active 06/27/2016 9:05:39 AM Coumadin 4 mg tablet RxNorm: 279001 1 Tablet(s) PO 3 x week e and sun 06/09/2016 06/08/2016 In active Coumadin 4 mg tablet RxNorm: 003000 1 Tablet(s) PO 3 x week e and sun 06/09/2016 07/26/2016 In active Zetia 10 mg tablet RxNorm: 090970 1 Tablet(s) PO daily 06/09/2016 06/08/2016 Inactive gave 1 month of samples Zetia 10 mg tablet RxNorm: 588523 1 Tablet(s) PO daily 06/09/2016 09/24/2016 Inactive gave 1 month of samples Effexor 75 mg tablet RxNorm: 027038 1 Tablet(s) PO daily 06/08/2016 06/28/2016 Inactive spironolactone 25 mg tablet RxNorm: 080763 1 Tablet(s) PO daily 06/08/2016 05/23/2017 Inactive Synthroid 137 mcg ta blet RxNorm: 175020 1 Tablet(s) PO daily 05/07/2016 11/02/2016 Inactive allopurinol 300 mg t ablet RxNorm: 316928 Tablet(s) TAKE 1 TABL ET BY MOUTH ONCE DAILY. 04/28/2016 10/24/2016 Inactive clonazepam 0.5 mg ta blet RxNorm: 089888 1 Tablet(s) PO BID 04/20/2016 10/03/2018 Inactive Flonase Allergy Reli ef 50 mcg/actuation nasal spray,suspension RxNorm: 1650923 1 Rosie NASAL BID 04/02/2016 No Stop Date Active Zithromax Z-Thomas 250 mg tablet RxNorm: 164490 Tablet(s) PO 04/02/2016 08/27/2016 Inactive cetirizine 10 mg tablet RxNorm: 5716986 1 Tablet(s) PO daily 04/02/2016 05/01/2016 Inactive Carafate 1 gram tablet RxNorm: 827731 Tablet(s) TAKE 1 TABLET TWICE A DAY FOR 30 DAYS 03/30/2016 10/25/2016 Inactive Generic For:CARAFATE 1GM 02/08/2015 12:3 6:39 PM Plavix 75 mg tablet RxNorm: 602055 1 Tablet(s) PO daily 03/11/2016 09/06/2016 Inactive sodium bicarbonate 6 50 mg tablet RxNorm: 065569 Tablet(s) 2 Tablet(s) PO BID 02/28/2016 06/26/2016 In active omeprazole 20 mg cap sean,delayed release RxNorm: 545075 Capsule(s) PO TAKE 1 CAPSULE BY MOUTH ONCE DAILY 01/31/2016 07/26/2016 Inactive Fish Oil 1,000 mg ca psule RxNorm: 1 Capsule(s) PO BID 01/14/2016 No Stop Date Active Synthroid 137 mcg ta blet RxNorm: 304139 1 Tablet(s) PO daily 01/14/2016 05/06/2016 Inactive Detrol LA 4 mg capsu le,extended release RxNorm: 895487 TAKE 1 CAPSULE BY JAVON TH ONCE DAILY 12/30/2015 07/26/2016 Inactive Generic For:DETROL LA 4MG C AP 12/30/2015 9:11:01 AM potassium chloride 2 0 mEq/15 mL oral liquid RxNorm: 937820 Milliliter(s) 30 Milliliter(s) (40mEq) PO daily 12/02/2015 03/30/2016 Inactive sodium bicarbonate 6 50 mg tablet RxNorm: 613583 Tablet(s) 2 Tablet(s) PO BID 10/31/2015 02/27/2016 In active Lipitor 40 mg tablet RxNorm: 852974 1 Tablet(s) PO daily 10/09/2015 09/24/2016 Inactive sodium bicarbonate 6 50 mg tablet RxNorm: 491128 2 Tablet(s) PO BID 10/01/2015 10/30/2015 Inactive allopurinol 300 mg t ablet RxNorm: 686246 TAKE 1 TABLET BY MOUT H ONCE DAILY. 10/01/2015 04/27/2016 In active Generic For:ZYLOPRIM 300 MG TABLET 09/19 9:21:15 AM clonazepam 0.5 mg ta blet RxNorm: 140033 1 Tablet(s) PO BID 09/30/2015 04/19/2016 Inactive Coumadin 5 mg tablet RxNorm: 257226 1 Tablet(s) PO daily 09/27/2015 05/31/2017 Inactive Generic For:COUMADIN 5MG TAB N O T I C E PRESCRIPTION PREVIOUSLY AUTHORIZED BY DOCTOR:BOBBY ZULETA Synthroid 125 mcg ta blet RxNorm: 037476 1 Tablet(s) PO daily 09/27/2015 09/26/2015 Inactive Synthroid 125 mcg ta blet RxNorm: 080175 1 Tablet(s) PO daily 09/27/2015 01/13/2016 Inactive Carafate 1 gram tablet RxNorm: 328273 Tablet(s) TAKE 1 TABLET TWICE A DAY FOR 30 DAYS 09/02/2015 03/29/2016 Inactive Generic For:CARAFATE 1GM 02/08/2015 12:3 6:39 PM sodium bicarbonate 6 50 mg tablet RxNorm: 436933 2 Tablet(s) PO BID 09/02/2015 09/30/2015 Inactive Prilosec 20 mg capsu le,delayed release RxNorm: 577252 TAKE 1 CAPSULE BY JAVON TH ONCE DAILY 08/02/2015 01/28/2016 Inactive Generic For:PRILOSEC 20MG 08/02/2015 10:03:09 AM N O T I C E PRESCRIPTION PREVIOUSLY AUTHORIZED BY DOCTOR:BOBBY ZULETA Zyrtec 10 mg capsule RxNorm: 7710863 1 Capsule(s) PO daily 07/15/2015 08/13/2015 Inactive Keflex 500 mg capsule RxNorm: 552092 1 Capsule(s) PO TID 07/15/2015 07/21/2015 Inactive cetirizine 10 mg cap sean RxNorm: 5894721 1 Capsule(s) PO daily 07/15/2015 08/13/2015 Inactive hydrocodone 5 mg-humberto taminophen 325 mg tablet RxNorm: 394797 1-2 Tablet(s) PO Q6 P RN 06/10/2015 11/16/2016 In active sodium bicarbonate 6 50 mg tablet RxNorm: 249698 2 Tablet(s) PO BID 06/03/2015 08/31/2015 Inactive Detrol LA 4 mg capsu le,extended release RxNorm: 765330 TAKE 1 CAPSULE BY JAVON TH ONCE DAILY 06/03/2015 12/29/2015 Inactive Generic For:DETROL LA 4MG C AP N O T I C E PRESCRIPTION PREVIOUSLY AUTHORIZED BY DOCTOR:BOBBY ZULETA atenolol 50 mg tablet RxNorm: 414058 1 Tablet(s) PO daily TAKE 1 TABLET BY MO UTH DAILY 05/07/2015 08/23/2017 Inactive Generic For:TENORMIN 50MG 05/04/2015 9:07:22 AM spironolactone 25 mg tablet RxNorm: 901564 1 Tablet(s) PO daily 05/06/2015 06/07/2016 Inactive venlafaxine ER 75 mg capsule,extended release 24 hr RxNorm: 494246 1 Capsule(s) PO daily 05/04/2015 06/28/2016 Inactive atenolol 50 mg tablet RxNorm: 020814 TAKE 1 TABLET BY MOUTH DAILY 05/04/2015 05/06/2015 Inactive Generic For:TENORMIN 50MG 05/04/2015 9: 07:22 AM Synthroid 150 mcg ta blet RxNorm: 059861 TAKE 1 TABLET BY MOUT H ONCE DAILY. 04/05/2015 09/26/2015 In active Generic For:SYNTHROID 150MCG TAB 2014 4:45:40 PM N O T I C E PRESCRIPTION PREVIOUSLY AUTHORIZED BY DOCTOR:BOBBY ZULETA Effexor 75 mg tablet RxNorm: 255661 1 Tablet(s) PO daily 04/05/2015 07/03/2015 Inactive Coumadin 5 mg tablet RxNorm: 680283 TAKE 1 AND 1/2 TABLETS BY MOUTH ONCE MYRANDA LY 04/04/2015 09/26/2015 In active Generic For:COUMADIN 5MG TAB N O T I C E PRESCRIPTION PREVIOUSLY AUTHORIZED BY DOCTOR:BOBBY ZULETA clonazepam 0.5 mg ta blet RxNorm: 341363 1 Tablet(s) PO BID 03/13/2015 11/05/2015 Inactive sodium bicarbonate 6 50 mg tablet RxNorm: 034785 2 Tablet(s) PO BID 03/08/2015 06/02/2015 Inactive allopurinol 300 mg t ablet RxNorm: 159992 TAKE 1 TABLET BY MOUT H ONCE DAILY. 03/05/2015 09/30/2015 In active N O T I C E PRESCRIPTION PREVIOUSLY A UTHORIZED BY DOCTOR:BOBBY ZULETA Plavix 75 mg tablet RxNorm: 142639 1 Tablet(s) PO daily 02/12/2015 09/09/2015 Inactive clonazepam 0.5 mg ta blet RxNorm: 745962 1 Tablet(s) PO BID 02/11/2015 03/11/2015 Inactive Carafate 1 gram tablet RxNorm: 102883 TAKE 1 TABLET TWICE A DAY FOR 30 DAYS 02/08/2015 02/07/2015 In active Generic For:CARAFATE 1GM 02/08/2015 12:3 6:39 PM Carafate 1 gram tablet RxNorm: 468895 Tablet(s) TAKE 1 TABLET TWICE A DAY FOR 30 DAYS 02/08/2015 09/01/2015 Inactive Generic For:CARAFATE 1GM 02/08/2015 12:3 6:39 PM potassium chloride 2 0 mEq/15 mL oral liquid RxNorm: 723244 30 Milliliter(s) (40m Eq) PO daily 02/05/2015 12/01/2015 Inactive atenolol 50 mg tablet RxNorm: 116915 1 Tablet(s) PO daily 02/04/2015 05/03/2015 Inactive [SAVINGS FOR NON-COVERED DRUGS -- BIN:00 0435, PCN: [id number], Group: XXXXX, ID# [id number], Questions: . THIS IS NOT INSURANCE.] potassium chloride 2 0 mEq/15 mL oral liquid RxNorm: 306795 30 Milliliter(s) (40m Eq) PO daily 01/08/2015 02/04/2015 Inactive potassium chloride 2 0 mEq/15 mL oral liquid RxNorm: 963382 30 Milliliter(s) (40m Eq) PO daily 12/07/2014 01/07/2015 Inactive atenolol 50 mg tablet RxNorm: 201793 1 Tablet(s) PO daily 11/09/2014 11/08/2014 Inactive atenolol 50 mg tablet RxNorm: 972840 1 Tablet(s) PO daily 11/09/2014 02/03/2015 Inactive [SAVINGS FOR NON-COVERED DRUGS -- BIN:00 3585, PCN: [email or web address], Group: XXXXX, ID# [id number], Questions: . THIS IS NOT INSURANCE.] Voltaren 1 % topical gel RxNorm: 149594 TOP No St art Date Active verapamil ER (HS) 24 0 mg tablet,extended release 24 hr RxNorm: 779448 1 Tablet(s) PO daily No Start Date Active aspirin 81 mg tablet RxNorm: 670731 1 Tablet(s) PO daily No Start Date Active Zofran 4 mg tablet RxNorm: 130055 1 Tablet(s) PO PRN No Start Date Active B12 1000 mcg RxNorm: 1 Tablet(s) PO daily No Start Date Active magnesium oxide 400 mg capsule RxNorm: 713049 2 Capsule(s) PO BID No Start Date Active Synthroid 150 mcg ta blet RxNorm: 233558 1 Tablet(s) PO daily No Start Date 04/04/2015 Inactive Coumadin 5 mg tablet RxNorm: 187621 1 Tablet(s) PO daily No Start Date 04/03/2015 Inactive cranberry 1,000 mg c apsule RxNorm: 403920 1 Capsule(s) PO daily No Start Date 04/13/2018 Inactive allopurinol 300 mg t ablet RxNorm: 089032 1 Tablet(s) PO daily No Start Date 03/04/2015 Inactive Prilosec 20 mg capsu le,delayed release RxNorm: 113151 1 Capsule(s) PO PRN No Start Date 08/01/2015 Inactive potassium chloride 2 0 mEq/15 mL oral liquid RxNorm: 070991 30 Milliliter(s) (40m Eq) PO daily No Start Date 12/06/2014 Inactive atenolol 50 mg tablet RxNorm: 738964 1 Tablet(s) PO daily No Start Date 08/29/2017 Inactive Lipitor 40 mg tablet RxNorm: 732155 1 Tablet(s) PO daily No Start Date 09/19/2017 Inactive Effexor 75 mg tablet RxNorm: 613284 1 Tablet(s) PO daily No Start Date 04/04/2015 Inactive Carafate 1 gram tablet RxNorm: 853448 1 Tablet(s) PO BID No Start Date 02/07/2015 Inactive clonazepam 0.5 mg ta blet RxNorm: 000632 1 Tablet(s) PO BID No Start Date 02/10/2015 Inactive Plavix 75 mg tablet RxNorm: 880617 1 Tablet(s) PO daily No Start Date 02/11/2015 Inactive sodium bicarbonate 6 50 mg tablet RxNorm: 374112 2 Tablet(s) PO BID No Start Date 09/01/2015 Inactive Lovenox 30 mg/0.3 mL subcutaneous syringe RxNorm: 338774 0.3 Milliliter(s) SQ Q12H No Start Date 03/15/2017 Inactive Fish Oil 1,000 mg ca psule RxNorm: 1 Capsule(s) PO daily No Start Date 01/13/2016 Inactive Detrol LA 4 mg capsu le,extended release RxNorm: 761849 1 Capsule(s) PO daily No Start Date 06/02/2015 Inactive Medication Administered Medication Codes Instruc tions Start Date Status Kenalog 40 mg/mL suspension for injection RxNorm: 7450456 Milliliter 09/02/2018 No longer Active Immunizations Vaccine Codes Date Status SHINGARIX CVX: 121 03/23 completed Assessments Condition Codes Effectiv e Dates Mixed hyperlipidemia ICD-10: E78.2 ICD-9: 272.4 10/05/2018 Other acute sinusitis ICD-10: J01.80 ICD-9: 461.8 09/02/2018 Other allergic rhinitis ICD-10: J30. 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 ICD-9: V58.69 [...] Code Item Item Code Result Date Pt Zzj8405 PT 26.3 seconds 10/13/2018 Pt Ask7650 INR 2.5 10/13/2018 Pt Kup5767 Low Intensity - 1.5-2.0 10/13/2018 Pt Gfj0743 Mod intensity - 2.0-3.0 10/13/2018 Pt Vmp9393 Hi intensity - 3.0-4.0 10/13/2018 Lipid Ord30 CHOL 180 mg/dL 10/07/2018 Lipid Ord30 HDL 74.0 mg/dl 10/07/2018 Lipid Ord30 TRIG 111 mg/dL 10/07/2018 Lipid Ord30 LDL 84 mg/dL 10/07/2018 Lipid Ord30 C/HDL 2.4 Ratio 10/07/2018 Pt Glv2141 PT 38.1 seconds 10/07/2018 Pt Kna1689 INR 3.9 10/07/2018 Pt Vqc1125 Low Intensity - 1.5-2.0 10/07/2018 Pt Ayz3503 Mod intensity - 2.0-3.0 10/07/2018 Pt Zou3188 Hi intensity - 3.0-4.0 10/07/2018 Tsh Ord6 TSH (3rd IS) 0.43 uIU/mL 09/02/2018 Comp Metabolic Bsw619 NA 136 mEq/L 09/02/2018 Comp Metabolic Pah966 K 4.1 mEq/L 09/02/2018 Comp Metabolic Edu965 CL 103 mEq/L 09/02/2018 Comp Metabolic Urg071 CO2 20.0 mEq/L 09/02/2018 Comp Metabolic Ydc455 AN ION GAP 17 09/02/2018 Comp Metabolic Acf833 GL UCOSE 124 mg/dL 09/02/2018 Comp Metabolic Pgb856 Cr eat 1.0 mg/dL 09/02/2018 Comp Metabolic Rmr243 eG FR 57 ml/min/1.73m2 09/02 Comp Metabolic Tqa881 BUN 24 mg/dL 09/02/2018 Comp Metabolic Tig165 B/ C Ratio 23.8 Ratio 09/02/2018 Comp Metabolic Lxg160 CA LCIUM 9.5 mg/dL 09/02/2018 Comp Metabolic Cmc207 AL K PHOS 64 U/L 09/02/2018 Comp Metabolic Zut537 T(SGOT) 24 U/L 09/02/2018 Comp Metabolic Von758 AL T(SGPT) 23 U/L 09/02/2018 Comp Metabolic Cni047 BI LI T 0.5 mg/dL 09/02/2018 Comp Metabolic Cnw498 AL BUMIN 4.2 g/dL 09/02/2018 Comp Metabolic Huz150 TP RO 7.4 g/dL 09/02/2018 Comp Metabolic Hbc739 GL OB 3.2 g/dL 09/02/2018 Comp Metabolic Gdv530 A/ G Ratio 1.3 Ratio 09/02/2018 Comp Metabolic Zgm833 Os mo 277 mOsmo 09/02/2018 Pt Qjk2026 PT 40.6 seconds 09/02/2018 Pt Xbm5710 INR 4.2 09/02/2018 Pt Qep0573 Low Intensity - 1.5-2.0 09/02/2018 Pt Xev4577 Mod intensity - 2.0-3.0 09/02/2018 Pt Rpe8349 Hi intensity - 3.0-4.0 09/02/2018 Free T4 Aky286 FREE T4 1.51 ng/dL 09/02/2018 Magnesium Ord90 Mag 1.8 mg/dL 09/02/2018 Pt Wcc7948 PT 29.2 seconds 08/05/2018 Pt Azj7034 INR 2.8 08/05/2018 Pt Akj0798 Low Intensity - 1.5-2.0 08/05/2018 Pt Lzw1647 Mod intensity - 2.0-3.0 08/05/2018 Pt Drr9035 Hi intensity - 3.0-4.0 08/05/2018 Pt Qqw8381 PT 30.2 seconds 07/25/2018 Pt Yam0640 INR 2.9 07/25/2018 Pt Lst9075 Low Intensity - 1.5-2.0 07/25/2018 Pt Ymh8821 Mod intensity - 2.0-3.0 07/25/2018 Pt Iqq3463 Hi intensity - 3.0-4.0 07/25/2018 Pt Zzf6149 PT 25.2 seconds 07/19/2018 Pt Jzi3665 INR 2.3 07/19/2018 Pt Zpz4383 Low Intensity - 1.5-2.0 07/19/2018 Pt Eqh2245 Mod intensity - 2.0-3.0 07/19/2018 Pt Vzq5507 Hi intensity - 3.0-4.0 07/19/2018 Pt Kxi2459 PT 17.4 seconds 07/15/2018 Pt Hxn5315 INR 1.5 07/15/2018 Pt Hpc0196 Low Intensity - 1.5-2.0 07/15/2018 Pt Ltg4713 Mod intensity - 2.0-3.0 07/15/2018 Pt Dsx1828 Hi intensity - 3.0-4.0 07/15/2018 Pt Thi6949 PT 17.8 seconds 07/08/2018 Pt Qdt4696 INR 1.5 07/08/2018 Pt Rbi5214 Low Intensity - 1.5-2.0 07/08/2018 Pt Eim7041 Mod intensity - 2.0-3.0 07/08/2018 Pt Vpk5483 Hi intensity - 3.0-4.0 07/08/2018 Pt Fkn8776 PT 19.2 seconds 07/01/2018 Pt Irt1652 INR 1.7 07/01/2018 Pt Yff8420 Low Intensity - 1.5-2.0 07/01/2018 Pt Jdc9650 Mod intensity - 2.0-3.0 07/01/2018 Pt Cnw1132 Hi intensity - 3.0-4.0 07/01/2018 Pt Ezn4622 PT 17.4 seconds 06/23/2018 Pt Bzo1486 INR 1.5 06/23/2018 Pt Vvq4464 Low Intensity - 1.5-2.0 06/23/2018 Pt Row7315 Mod intensity - 2.0-3.0 06/23/2018 Pt Ggp8080 Hi intensity - 3.0-4.0 06/23/2018 Pt Wvy5379 PT 18.4 seconds 06/17/2018 Pt Jlm8543 INR 1.6 06/17/2018 Pt Enp3176 Low Intensity - 1.5-2.0 06/17/2018 Pt Jqx6757 Mod intensity - 2.0-3.0 06/17/2018 Pt Nim6530 Hi intensity - 3.0-4.0 06/17/2018 Sed Rate [...] 30.4 pg 06/08/2018 Cbc With Differential Ord2 [place]% 9.4 % 06/08/2018 Cbc With Differential Ord2 [...] 1.20 K/ul 06/08/2018 Cbc With Differential Ord2 [place] ABS# 0.5 K/ul 06/08/2018 Cbc With Differential Ord2 Eos ABS# 0.1 K/ul 06/08/2018 Cbc With Differential Ord2 Baso ABS# 0.1 K/ul 06/08/2018 C-Reactive Protein Qnt Crqnt CRP 0.1 mg/dl 06/08/2018 Pt Sjf5489 PT 17.6 seconds 06/08/2018 Pt Sfe1948 INR 1.5 06/08/2018 Pt Qhv8389 Low Intensity - 1.5-2.0 06/08/2018 Pt Mqm7122 Mod intensity - 2.0-3.0 06/08/2018 Pt Wca6652 Hi intensity - 3.0-4.0 06/08/2018 Pt Vqw0008 PT 16.8 seconds 05/10/2018 Pt Nge9487 INR 1.4 05/10/2018 Pt Foa0015 Low Intensity - 1.5-2.0 05/10/2018 Pt Wel5537 Mod intensity - 2.0-3.0 05/10/2018 Pt Mqq5990 Hi intensity - 3.0-4.0 05/10/2018 Pt Pae7644 PT 16.7 seconds 05/04/2018 Pt Ykh3522 INR 1.4 05/04/2018 Pt Uwx3849 Low Intensity - 1.5-2.0 05/04/2018 Pt Smc7043 Mod intensity - 2.0-3.0 05/04/2018 Pt Mli8012 Hi intensity - 3.0-4.0 05/04/2018 Free T4 Zab015 FREE T4 1.09 ng/dL 04/14/2018 Tsh Ord6 TSH (3rd IS) 2.36 uIU/mL 04/14/2018 Pt Yeo4355 PT 20.3 seconds 04/14/2018 Pt Rzd5721 INR 1.8 04/14/2018 Pt Ill6783 Low Intensity - 1.5-2.0 04/14/2018 Pt Wxn0100 Mod intensity - 2.0-3.0 04/14/2018 Pt Sly3344 Hi intensity - 3.0-4.0 04/14/2018 Lipid Ord30 CHOL 149 mg/dL 04/14/2018 Lipid Ord30 HDL 49.0 mg/dl 04/14/2018 Lipid Ord30 TRIG 161 mg/dL 04/14/2018 Lipid Ord30 LDL 68 mg/dL 04/14/2018 Lipid Ord30 C/HDL 3.0 Ratio 04/14/2018 %Hba1C Pdy271 % HbA1c 56369-4 5.9 % 04/14/2018 %Hba1C Bqw909 Gluc Ave 123 mg/dL 04/14/2018 Comp Metabolic Cro162 NA 140 mEq/L 04/14/2018 Comp Metabolic Eor940 K 4.1 mEq/L 04/14/2018 Comp Metabolic Yyo252 CL 105 mEq/L 04/14/2018 Comp Metabolic Rai744 CO2 28.0 mEq/L 04/14/2018 Comp Metabolic Rkw565 AN ION GAP 11 04/14/2018 Comp Metabolic Nih693 GL UCOSE 112 mg/dL 04/14/2018 Comp Metabolic Rax165 Cr eat 1.0 mg/dL 04/14/2018 Comp Metabolic Lle632 eG FR 58 ml/min/1.73m2 04/14 Comp Metabolic Jrr506 BUN 20 mg/dL 04/14/2018 Comp Metabolic Wxw079 B/ C Ratio 20.2 Ratio 04/14/2018 Comp Metabolic Krq627 CA LCIUM 10.0 mg/dL 04/14/2018 Comp Metabolic Squ133 AL K PHOS 51 U/L 04/14/2018 Comp Metabolic Fty709 T(SGOT) 24 U/L 04/14/2018 Comp Metabolic Rse932 AL T(SGPT) 21 U/L 04/14/2018 Comp Metabolic Llp463 BI LI T 0.8 mg/dL 04/14/2018 Comp Metabolic Fhs223 AL BUMIN 4.2 g/dL 04/14/2018 Comp Metabolic Yuj943 TP RO 7.1 g/dL 04/14/2018 Comp Metabolic Pfc318 GL OB 2.9 g/dL 04/14/2018 Comp Metabolic Oiz353 A/ G Ratio 1.5 Ratio 04/14/2018 Comp Metabolic Kiq371 Os mo 283 mOsmo 04/14/2018 Cbc With [...] 30.7 pg 04/14/2018 Cbc With Differential Ord2 [place]% 10.6 % 04/14/2018 Cbc With Differential Ord2 [...] 1.18 K/ul 04/14/2018 Cbc With Differential Ord2 [place] ABS# 0.5 K/ul 04/14/2018 Cbc With Differential Ord2 Eos ABS# 0.2 K/ul 04/14/2018 Cbc With Differential Ord2 Baso ABS# 0.1 K/ul 04/14/2018 Pt Uxm1067 PT 29.3 seconds 02/11/2018 Pt Chk2942 INR 2.8 02/11/2018 Pt Qph7932 Low Intensity - 1.5-2.0 02/11/2018 Pt Wgk9249 Mod intensity - 2.0-3.0 02/11/2018 Pt Lds6373 Hi intensity - 3.0-4.0 02/11/2018 Comp Metabolic Lco792 NA 141 mEq/L 01/05/2018 Comp Metabolic Nlc211 K 3.7 mEq/L 01/05/2018 Comp Metabolic Skk865 CL 102 mEq/L 01/05/2018 Comp Metabolic Srb538 CO2 29.0 mEq/L 01/05/2018 Comp Metabolic Ydw506 AN ION GAP 14 01/05/2018 Comp Metabolic Wwm834 GL UCOSE 136 mg/dL 01/05/2018 Comp Metabolic Wrv571 Cr eat 1.0 mg/dL 01/05/2018 Comp Metabolic Fgt330 eG FR 61 ml/min/1.73m2 01/05 Comp Metabolic Uwq694 BUN 22 mg/dL 01/05/2018 Comp Metabolic Fjn188 B/ C Ratio 22.9 Ratio 01/05/2018 Comp Metabolic Nqy566 CA LCIUM 9.7 mg/dL 01/05/2018 Comp Metabolic Ejb412 AL K PHOS 57 U/L 01/05/2018 Comp Metabolic Zjy363 T(SGOT) 21 U/L 01/05/2018 Comp Metabolic Fww664 AL T(SGPT) 19 U/L 01/05/2018 Comp Metabolic Jbg001 BI LI T 0.9 mg/dL 01/05/2018 Comp Metabolic Egr815 AL BUMIN 4.1 g/dL 01/05/2018 Comp Metabolic Eke954 TP RO 7.1 g/dL 01/05/2018 Comp Metabolic Zhe136 GL OB 3.0 g/dL 01/05/2018 Comp Metabolic Rmh382 A/ G Ratio 1.4 Ratio 01/05/2018 Comp Metabolic Flq530 Os mo 287 mOsmo 01/05/2018 Free T4 Vvm127 FREE T4 1.05 ng/dL 01/05/2018 %Hba1C Bci666 % HbA1c 07926-4 6.0 % 01/05/2018 %Hba1C Jxi551 Gluc Ave 126 mg/dL 01/05/2018 Cbc With [...] 30.6 pg 01/05/2018 Cbc With Differential Ord2 [place]% 10.5 % 01/05/2018 Cbc With Differential Ord2 [...] 1.27 K/ul 01/05/2018 Cbc With Differential Ord2 [place] ABS# 0.5 K/ul 01/05/2018 Cbc With Differential Ord2 Eos ABS# 0.2 K/ul 01/05/2018 Cbc With Differential Ord2 Baso ABS# 0.1 K/ul 01/05/2018 Pt Otw4343 PT 20.7 seconds 01/05/2018 Pt Wka1451 INR 1.8 01/05/2018 Pt Kre5853 Low Intensity - 1.5-2.0 01/05/2018 Pt Ebj7884 Mod intensity - 2.0-3.0 01/05/2018 Pt Fog1302 Hi intensity - 3.0-4.0 01/05/2018 Tsh Ord6 TSH (3rd IS) 2.34 uIU/mL 01/05/2018 Lipid Ord30 CHOL 156 mg/dL 01/05/2018 Lipid Ord30 HDL 48.0 mg/dl 01/05/2018 Lipid Ord30 TRIG 207 mg/dL 01/05/2018 Lipid Ord30 LDL 67 mg/dL 01/05/2018 Lipid Ord30 C/HDL 3.3 Ratio 01/05/2018 Pt Xby4233 PT 28.3 seconds 11/26/2017 Pt Vxc6863 INR 2.6 11/26/2017 Pt Tqc6294 Low Intensity - 1.5-2.0 11/26/2017 Pt Swi8090 Mod intensity - 2.0-3.0 11/26/2017 Pt Ciu4103 Hi intensity - 3.0-4.0 11/26/2017 Pt Qpr9686 PT 36.5 seconds 11/19/2017 Pt Ehc6408 INR 3.6 11/19/2017 Pt Ily7391 Low Intensity - 1.5-2.0 11/19/2017 Pt Nkj2099 Mod intensity - 2.0-3.0 11/19/2017 Pt Ulz5153 Hi intensity - 3.0-4.0 11/19/2017 Pt Szf0346 PT 22.9 seconds 10/15/2017 Pt Dqy3517 INR 2.0 10/15/2017 Pt Bqf0309 Low Intensity - 1.5-2.0 10/15/2017 Pt Acm8162 Mod intensity - 2.0-3.0 10/15/2017 Pt Kck5940 Hi intensity - 3.0-4.0 10/15/2017 Pt Ilh2636 PT 25.9 seconds 10/01/2017 Pt Hsh0820 INR 2.4 10/01/2017 Pt Trr2824 Low Intensity - 1.5-2.0 10/01/2017 Pt Rdm9366 Mod intensity - 2.0-3.0 10/01/2017 Pt Vcc0675 Hi intensity - 3.0-4.0 10/01/2017 Pt Tcf3764 PT 20.6 seconds 09/24/2017 Pt Mbp4592 INR 1.8 09/24/2017 Pt Brv9329 Low Intensity - 1.5-2.0 09/24/2017 Pt Vjx5234 Mod intensity - 2.0-3.0 09/24/2017 Pt Yrk1483 Hi intensity - 3.0-4.0 09/24/2017 Pt Ucb8856 PT 21.0 seconds 09/15/2017 Pt Nec4739 INR 1.8 09/15/2017 Pt Lds3601 Low Intensity - 1.5-2.0 09/15/2017 Pt Csu8729 Mod intensity - 2.0-3.0 09/15/2017 Pt Pjv3763 Hi intensity - 3.0-4.0 09/15/2017 Pt Knj9249 PT 19.0 seconds 09/03/2017 Pt Hsx5180 INR 1.6 09/03/2017 Pt Thd7136 Low Intensity - 1.5-2.0 09/03/2017 Pt Fse4510 Mod intensity - 2.0-3.0 09/03/2017 Pt Try6789 Hi intensity - 3.0-4.0 09/03/2017 Pt Vuq9026 PT 17.6 seconds 08/23/2017 Pt Mpl9321 INR 1.5 08/23/2017 Pt Myz4344 Low Intensity - 1.5-2.0 08/23/2017 Pt Bws4859 Mod intensity - 2.0-3.0 08/23/2017 Pt Qfm2103 Hi intensity - 3.0-4.0 08/23/2017 Pt Okl9150 PT 12.7 seconds 08/20/2017 Pt Eix5493 INR 1.0 08/20/2017 Pt Aqj1384 Low Intensity - 1.5-2.0 08/20/2017 Pt Kwf3061 Mod intensity - 2.0-3.0 08/20/2017 Pt Xcn6507 Hi intensity - 3.0-4.0 08/20/2017 Pt Mhj6059 PT 12.9 seconds 08/17/2017 Pt Tvg5296 INR 1.0 08/17/2017 Pt Nqg1076 Low Intensity - 1.5-2.0 08/17/2017 Pt Vfl4573 Mod intensity - 2.0-3.0 08/17/2017 Pt Kyc5695 Hi intensity - 3.0-4.0 08/17/2017 Pt Kos1551 PT 18.5 seconds 08/10/2017 Pt Uqx7392 INR 1.6 08/10/2017 Pt Biy3539 Low Intensity - 1.5-2.0 08/10/2017 Pt Zbj2946 Mod intensity - 2.0-3.0 08/10/2017 Pt Fxi2921 Hi intensity - 3.0-4.0 08/10/2017 Tsh Ord6 [...] 29.3 pg 05/27/2017 Cbc With Differential Ord2 [place]% 8.1 % 05/27/2017 Cbc With Differential Ord2 [...] 1.11 K/ul 05/27/2017 Cbc With Differential Ord2 [place] ABS# 0.6 K/ul 05/27/2017 Cbc With Differential Ord2 Eos ABS# 0.2 K/ul 05/27/2017 Cbc With Differential Ord2 Baso ABS# 0.1 K/ul 05/27/2017 Pt Bbt2252 PT 28.2 seconds 05/27/2017 Pt Wia5072 INR 2.6 05/27/2017 Pt Bml5489 Low Intensity - 1.5-2.0 05/27/2017 Pt Alz0272 Mod intensity - 2.0-3.0 05/27/2017 Pt Cdd1024 Hi intensity - 3.0-4.0 05/27/2017 Lipid Ord30 CHOL 167 mg/dL 05/27/2017 Lipid Ord30 HDL 49.0 mg/dl 05/27/2017 Lipid Ord30 TRIG 347 mg/dL 05/27/2017 Lipid Ord30 LDL 49 mg/dL 05/27/2017 Lipid Ord30 C/HDL 3.4 Ratio 05/27/2017 Magnesium Ord90 Mag 1.4 mg/dL 05/27/2017 %Hba1C Zec052 % HbA1c 64626-5 5.9 % 05/27/2017 %Hba1C Wrb848 Gluc Ave 123 mg/dL 05/27/2017 Comp Metabolic Ieo758 NA 138 mEq/L 05/27/2017 Comp Metabolic Lpk473 K 4.1 mEq/L 05/27/2017 Comp Metabolic Tgv115 CL 101 mEq/L 05/27/2017 Comp Metabolic Qug189 CO2 31.0 mEq/L 05/27/2017 Comp Metabolic Kho463 AN ION GAP 10 05/27/2017 Comp Metabolic Ner956 GL UCOSE 117 mg/dL 05/27/2017 Comp Metabolic Zbo621 Cr eat 0.9 mg/dL 05/27/2017 Comp Metabolic Ufi628 eG FR 62 ml/min/1.73m2 05/27 Comp Metabolic Ebp179 BUN 25 mg/dL 05/27/2017 Comp Metabolic Lco883 B/ C Ratio 26.6 Ratio 05/27/2017 Comp Metabolic Rvj721 CA LCIUM 9.5 mg/dL 05/27/2017 Comp Metabolic Eek526 AL K PHOS 73 U/L 05/27/2017 Comp Metabolic Amt322 T(SGOT) 18 U/L 05/27/2017 Comp Metabolic Pil772 AL T(SGPT) 12 U/L 05/27/2017 Comp Metabolic Wpt237 BI LI T 0.5 mg/dL 05/27/2017 Comp Metabolic Hwb689 AL BUMIN 4.1 g/dL 05/27/2017 Comp Metabolic Zmr780 TP RO 7.1 g/dL 05/27/2017 Comp Metabolic Shs938 GL OB 3.0 g/dL 05/27/2017 Comp Metabolic Dpp334 A/ G Ratio 1.3 Ratio 05/27/2017 Comp Metabolic Xbj849 Os mo 281 mOsmo 05/27/2017 Free T4 Pki193 FREE T4 0.91 ng/dL 05/27/2017 Pt Feb9024 PT 29.2 seconds 04/16/2017 Pt Wif5482 INR 2.7 04/16/2017 Pt Kyk1275 Low Intensity - 1.5-2.0 04/16/2017 Pt Wfr2300 Mod intensity - 2.0-3.0 04/16/2017 Pt Gvm2805 Hi intensity - 3.0-4.0 04/16/2017 Pt Sjj3796 PT 30.7 seconds 03/31/2017 Pt Hhh4699 INR 2.9 03/31/2017 Pt Dqh1525 Low Intensity - 1.5-2.0 03/31/2017 Pt Abf3045 Mod intensity - 2.0-3.0 03/31/2017 Pt Uzz0967 Hi intensity - 3.0-4.0 03/31/2017 Pt Byf7123 PT 21.3 seconds 03/26/2017 Pt Twe1729 INR 1.9 03/26/2017 Pt Xpi8437 Low Intensity - 1.5-2.0 03/26/2017 Pt Dxx0941 Mod intensity - 2.0-3.0 03/26/2017 Pt Pqb7370 Hi intensity - 3.0-4.0 03/26/2017 Pt Wad0600 PT 19.8 seconds 03/22/2017 Pt Jhj9645 INR 1.7 03/22/2017 Pt Gal9414 Low Intensity - 1.5-2.0 03/22/2017 Pt Ynf8227 Mod intensity - 2.0-3.0 03/22/2017 Pt Pws3858 Hi intensity - 3.0-4.0 03/22/2017 Pt Elf6029 PT 15.6 seconds 03/19/2017 Pt Ihj2461 INR 1.3 03/19/2017 Pt Ezd0310 Low Intensity - 1.5-2.0 03/19/2017 Pt Uju9234 Mod intensity - 2.0-3.0 03/19/2017 Pt Nep1371 Hi intensity - 3.0-4.0 03/19/2017 Pt Spy7529 PT 13.7 seconds 03/15/2017 Pt Vpv7178 INR 1.1 03/15/2017 Pt Lko6398 Low Intensity - 1.5-2.0 03/15/2017 Pt Bbo2140 Mod intensity - 2.0-3.0 03/15/2017 Pt Enh8385 Hi intensity - 3.0-4.0 03/15/2017 Pt Bcw6492 PT 25.8 seconds 01/28/2017 Pt Nyh1272 INR 2.4 01/28/2017 Pt Xzm1314 Low Intensity - 1.5-2.0 01/28/2017 Pt Rov5198 Mod intensity - 2.0-3.0 01/28/2017 Pt Ojt8130 Hi intensity - 3.0-4.0 01/28/2017 %Hba1C Fvi687 % HbA1c 65738-6 6.4 % 10/23/2016 %Hba1C Ees216 Gluc Ave 137 mg/dL 10/23/2016 Comp Metabolic Auq673 NA 138 mEq/L 10/23/2016 Comp Metabolic Scj204 K 3.4 mEq/L 10/23/2016 Comp Metabolic Ecu142 CL 100 mEq/L 10/23/2016 Comp Metabolic Wxf200 CO2 30.0 mEq/L 10/23/2016 Comp Metabolic Grd466 AN ION GAP 11 10/23/2016 Comp Metabolic Yol364 GL UCOSE 139 mg/dL 10/23/2016 Comp Metabolic Xur987 Cr eat 0.9 mg/dL 10/23/2016 Comp Metabolic Kzh708 eG FR 62 ml/min/1.73m2 10/23 Comp Metabolic Rsr060 BUN 22 mg/dL 10/23/2016 Comp Metabolic Vkp611 B/ C Ratio 23.4 Ratio 10/23/2016 Comp Metabolic Rrm585 CA LCIUM 8.7 mg/dL 10/23/2016 Comp Metabolic Itl662 AL K PHOS 66 U/L 10/23/2016 Comp Metabolic Zvz986 T(SGOT) 20 U/L 10/23/2016 Comp Metabolic Qrr715 AL T(SGPT) 10 U/L 10/23/2016 Comp Metabolic Zug075 BI LI T 0.5 mg/dL 10/23/2016 Comp Metabolic Jjx996 AL BUMIN 3.5 g/dL 10/23/2016 Comp Metabolic Ami312 TP RO 6.3 g/dL 10/23/2016 Comp Metabolic Xsp432 GL OB 2.8 g/dL 10/23/2016 Comp Metabolic Ejv299 A/ G Ratio 1.3 Ratio 10/23/2016 Comp Metabolic Wij593 Os mo 281 mOsmo 10/23/2016 Pt Iol8206 PT 26.8 seconds 10/23/2016 Pt Wwl0872 INR 2.7 10/23/2016 Pt Rft7984 Low Intensity - 1.5-2.0 10/23/2016 Pt Vbh0769 Mod intensity - 2.0-3.0 10/23/2016 Pt Ave0408 Hi intensity - 3.0-4.0 10/23/2016 Pt Sor2867 PT 28.3 seconds 09/25/2016 Pt Xva8635 INR 2.8 09/25/2016 Pt Hzj1681 Low Intensity - 1.5-2.0 09/25/2016 Pt Lew4815 Mod intensity - 2.0-3.0 09/25/2016 Pt Soq6938 Hi intensity - 3.0-4.0 09/25/2016 Metabolic Ord15 [...] Metabolic Ord15 CALCIUM 8.8 mg/dL 09/25/2016 Pt Bjx4649 PT 30.6 seconds 09/11/2016 Pt Trk8615 INR 3.2 09/11/2016 Pt Mgl0770 Low Intensity - 1.5-2.0 09/11/2016 Pt Eio8098 Mod intensity - 2.0-3.0 09/11/2016 Pt Dzw2993 Hi intensity - 3.0-4.0 09/11/2016 Comp Metabolic Rcz160 NA 138 mEq/L 09/11/2016 Comp Metabolic Ums187 K 4.4 mEq/L 09/11/2016 Comp Metabolic Nzh785 CL 103 mEq/L 09/11/2016 Comp Metabolic Jas020 CO2 31.0 mEq/L 09/11/2016 Comp Metabolic Ymg928 AN ION GAP 8 09/11/2016 Comp Metabolic Fmk907 GL UCOSE 146 mg/dL 09/11/2016 Comp Metabolic Hjz770 Cr eat 1.0 mg/dL 09/11/2016 Comp Metabolic Avc215 eG FR 60 ml/min/1.73m2 09/11 Comp Metabolic Bmg895 BUN 16 mg/dL 09/11/2016 Comp Metabolic Skp723 B/ C Ratio 16.5 Ratio 09/11/2016 Comp Metabolic Xdr671 CA LCIUM 8.7 mg/dL 09/11/2016 Comp Metabolic Ryb151 AL K PHOS 52 U/L 09/11/2016 Comp Metabolic Akk442 T(SGOT) 19 U/L 09/11/2016 Comp Metabolic Wgo033 AL T(SGPT) 11 U/L 09/11/2016 Comp Metabolic Fog168 BI LI T 0.7 mg/dL 09/11/2016 Comp Metabolic Kdy054 AL BUMIN 3.3 g/dL 09/11/2016 Comp Metabolic Dmr973 TP RO 5.8 g/dL 09/11/2016 Comp Metabolic Rte817 GL OB 2.5 g/dL 09/11/2016 Comp Metabolic Uin830 A/ G Ratio 1.3 Ratio 09/11/2016 Comp Metabolic Axp084 Os mo 280 mOsmo 09/11/2016 C-Reactive Protein Qnt Crqnt CRP 0.1 mg/dl 08/21/2016 Comp Metabolic Xcd935 NA 139 mEq/L 08/21/2016 Comp Metabolic Qgo275 K 4.1 mEq/L 08/21/2016 Comp Metabolic Bjj739 CL 102 mEq/L 08/21/2016 Comp Metabolic Mas169 CO2 30.0 mEq/L 08/21/2016 Comp Metabolic Xqc052 AN ION GAP 11 08/21/2016 Comp Metabolic Qiz412 GL UCOSE 148 mg/dL 08/21/2016 Comp Metabolic Zyo482 Cr eat 1.0 mg/dL 08/21/2016 Comp Metabolic Dqg352 eG FR 55 ml/min/1.73m2 08/21 Comp Metabolic Jjl892 BUN 21 mg/dL 08/21/2016 Comp Metabolic Cfm548 B/ C Ratio 20.2 Ratio 08/21/2016 Comp Metabolic Tea100 CA LCIUM 9.4 mg/dL 08/21/2016 Comp Metabolic Vom127 AL K PHOS 63 U/L 08/21/2016 Comp Metabolic Fra323 T(SGOT) 23 U/L 08/21/2016 Comp Metabolic Fot578 AL T(SGPT) 16 U/L 08/21/2016 Comp Metabolic Yml147 BI LI T 0.6 mg/dL 08/21/2016 Comp Metabolic Bpy480 AL BUMIN 3.9 g/dL 08/21/2016 Comp Metabolic Rbd215 TP RO 6.8 g/dL 08/21/2016 Comp Metabolic Bet863 GL OB 2.9 g/dL 08/21/2016 Comp Metabolic Esh266 A/ G Ratio 1.4 Ratio 08/21/2016 Comp Metabolic Dxe116 Os mo 283 mOsmo 08/21/2016 Sed Rate Ord21 ESR 16 mm/hr 08/21/2016 Pt Gry0564 PT 27.2 seconds 08/21/2016 Pt Cka8442 INR 2.7 08/21/2016 Pt Ueq3475 Low Intensity - 1.5-2.0 08/21/2016 Pt Imx3439 Mod intensity - 2.0-3.0 08/21/2016 Pt Nqr9656 Hi intensity - 3.0-4.0 08/21/2016 Magnesium Ord90 Mag 1.9 mg/dL 08/21/2016 Pt Hvx5621 PT 25.9 seconds 06/17/2016 Pt Hnr9074 INR 2.5 06/17/2016 Pt Vcp1518 Low Intensity - 1.5-2.0 06/17/2016 Pt Olm2216 Mod intensity - 2.0-3.0 06/17/2016 Pt Fvi2200 Hi intensity - 3.0-4.0 06/17/2016 Tsh Ord6 hTSH II 2.13 uIU/mL 06/08/2016 Free T4 Wwj312 FREE T4 0.79 ng/dL 06/08/2016 Cbc With [...] 26.8 pg 06/08/2016 Cbc With Differential Ord2 [place]% 12.0 % 06/08/2016 Cbc With Differential Ord2 [...] 1.40 K/ul 06/08/2016 Cbc With Differential Ord2 [place] ABS# 0.7 K/ul 06/08/2016 Cbc With Differential Ord2 Eos ABS# 0.3 K/ul 06/08/2016 Cbc With Differential Ord2 Baso ABS# 0.1 K/ul 06/08/2016 %Hba1C Vbg515 % HbA1c 65767-0 6.2 % 06/08/2016 %Hba1C Xmz156 Gluc Ave 131 mg/dL 06/08/2016 Comp Metabolic Ykv568 NA 138 mEq/L 06/08/2016 Comp Metabolic Abr100 K 3.9 mEq/L 06/08/2016 Comp Metabolic Snt023 CL 105 mEq/L 06/08/2016 Comp Metabolic Rnl043 CO2 27.0 mEq/L 06/08/2016 Comp Metabolic Llj265 AN ION GAP 10 06/08/2016 Comp Metabolic Hnc067 GL UCOSE 127 mg/dL 06/08/2016 Comp Metabolic Zwc921 Cr eat 1.0 mg/dL 06/08/2016 Comp Metabolic Cfg382 eG FR 59 ml/min/1.73m2 06/08 Comp Metabolic Ykw212 BUN 19 mg/dL 06/08/2016 Comp Metabolic Voy159 B/ C Ratio 19.4 Ratio 06/08/2016 Comp Metabolic Fon249 CA LCIUM 9.2 mg/dL 06/08/2016 Comp Metabolic Srm822 AL K PHOS 77 U/L 06/08/2016 Comp Metabolic Ktg058 T(SGOT) 19 U/L 06/08/2016 Comp Metabolic Tuq423 AL T(SGPT) 13 U/L 06/08/2016 Comp Metabolic Eqy840 BI LI T 0.5 mg/dL 06/08/2016 Comp Metabolic Lwz517 AL BUMIN 3.8 g/dL 06/08/2016 Comp Metabolic Jdw870 TP RO 6.6 g/dL 06/08/2016 Comp Metabolic Vms622 GL OB 2.8 g/dL 06/08/2016 Comp Metabolic Oqb901 A/ G Ratio 1.4 Ratio 06/08/2016 Comp Metabolic Aod617 Os mo 280 mOsmo 06/08/2016 Pt Qka9261 PT 36.1 seconds 06/08/2016 Pt Uha4717 INR 3.9 06/08/2016 Pt Bfg5865 Low Intensity - 1.5-2.0 06/08/2016 Pt Utu3817 Mod intensity - 2.0-3.0 06/08/2016 Pt Dbx4324 Hi intensity - 3.0-4.0 06/08/2016 Lipid Ord30 CHOL 149 mg/dL 06/08/2016 Lipid Ord30 HDL 46.0 mg/dl 06/08/2016 Lipid Ord30 TRIG 279 mg/dL 06/08/2016 Lipid Ord30 LDL 47 mg/dL 06/08/2016 Lipid Ord30 C/HDL 3.2 Ratio 06/08/2016 Pt Rgo9163 PT 30.9 seconds 02/12/2016 Pt Pcb1342 INR 3.2 02/12/2016 Pt Tux0013 Low Intensity - 1.5-2.0 02/12/2016 Pt Xsf2216 Mod intensity - 2.0-3.0 02/12/2016 Pt Ehw0297 Hi intensity - 3.0-4.0 02/12/2016 Free T4 Oka865 FREE T4 1.24 ng/dL 09/27/2015 %Hba1C Zjy131 % HbA1c 08713-4 6.4 % 09/27/2015 %Hba1C Vps295 Gluc Ave 137 mg/dL 09/27/2015 Tsh Ord6 hTSH II 0.37 uIU/mL 09/27/2015 Pt Mbd5611 PT 26.2 seconds 09/27/2015 Pt Ufl7751 INR 2.5 09/27/2015 Pt Esf9154 Low Intensity - 1.5-2.0 09/27/2015 Pt Ija2790 Mod intensity - 2.0-3.0 09/27/2015 Pt Omu7296 Hi intensity - 3.0-4.0 09/27/2015 Pt Dgw5603 PT 27.6 seconds 2015 Pt Whi9803 INR 2.7 2015 Pt Hvg7833 Low Intensity - 1.5-2.0 2015 Pt Wgd9500 Mod intensity - 2.0-3.0 2015 Pt Cvy3390 Hi intensity - 3.0-4.0 2015 %Hba1C Gnb858 % HbA1c 25701-5 6.1 % 06/11/2015 %Hba1C Hga673 Gluc Ave 128 mg/dL 06/11/2015 Cbc With [...] Ord2 RDW 15.8 % 06/10/2015 Comp Metabolic Erw991 NA 139 mEq/L 06/10/2015 Comp Metabolic Ssx164 K 4.1 mEq/L 06/10/2015 Comp Metabolic Hqv594 CL 105 mEq/L 06/10/2015 Comp Metabolic Rit915 CO2 27.0 mEq/L 06/10/2015 Comp Metabolic Ohs877 AN ION GAP 11 06/10/2015 Comp Metabolic Lxq096 GL UCOSE 127 mg/dL 06/10/2015 Comp Metabolic Oxb919 Cr eat 1.0 mg/dL 06/10/2015 Comp Metabolic Afo715 eG FR 59 ml/min/1.73m2 06/10 Comp Metabolic Ghy847 BUN 21 mg/dL 06/10/2015 Comp Metabolic Hib137 B/ C Ratio 21.2 Ratio 06/10/2015 Comp Metabolic Xkw034 CA LCIUM 9.2 mg/dL 06/10/2015 Comp Metabolic Lgr329 AL K PHOS 87 U/L 06/10/2015 Comp Metabolic Crt549 T(SGOT) 20 U/L 06/10/2015 Comp Metabolic Vah149 AL T(SGPT) 17 U/L 06/10/2015 Comp Metabolic Ilp415 BI LI T 0.4 mg/dL 06/10/2015 Comp Metabolic Ujm004 AL BUMIN 4.1 g/dL 06/10/2015 Comp Metabolic Ekv622 TP RO 7.2 g/dL 06/10/2015 Comp Metabolic Bsf636 GL OB 3.1 g/dL 06/10/2015 Comp Metabolic Doh149 A/ G Ratio 1.3 Ratio 06/10/2015 Comp Metabolic Suq054 Os mo 282 mOsmo 06/10/2015 Tsh Ord6 hTSH II 0.86 uIU/mL 06/10/2015 Lipid Ord30 CHOL 161 mg/dL 06/10/2015 Lipid Ord30 HDL 49.0 mg/dl 06/10/2015 Lipid Ord30 TRIG 208 mg/dL 06/10/2015 Lipid Ord30 LDL 70 mg/dL 06/10/2015 Lipid Ord30 C/HDL 3.3 Ratio 06/10/2015 Pt Bue0802 PT 25.0 seconds 04/09/2015 Pt Lhb8305 INR 2.4 04/09/2015 Pt Xda2326 Low Intensity - 1.5-2.0 04/09/2015 Pt Jzt8091 Mod intensity - 2.0-3.0 04/09/2015 Pt Qvh8319 Hi intensity - 3.0-4.0 04/09/2015 Free T4 Pmq364 FREE T4 1.05 ng/dL 01/22/2015 Pt Fdh2161 PT 27.2 seconds 01/22/2015 Pt Xaf2490 INR 2.6 01/22/2015 Pt Tid3040 Low Intensity - 1.5-2.0 01/22/2015 Pt Ykt6104 Mod intensity - 2.0-3.0 01/22/2015 Pt Dzb5588 Hi intensity - 3.0-4.0 01/22/2015 Cbc With [...] Differential Ord2 RDW 15.2 % 01/22/2015 B12 Nxl076 B12 402.00 pg/ml 01/22/2015 Tsh Ord6 hTSH II 0.65 uIU/mL 01/22/2015 Lipid Ord30 CHOL 166 mg/dL 01/22/2015 Lipid Ord30 HDL 48.0 mg/dl 01/22/2015 Lipid Ord30 TRIG 264 mg/dL 01/22/2015 Lipid Ord30 LDL 65 mg/dL 01/22/2015 Lipid Ord30 C/HDL 3.5 Ratio 01/22/2015 Comp Metabolic Fwv496 NA 138 mEq/L 01/22/2015 Comp Metabolic Jke427 K 4.1 mEq/L 01/22/2015 Comp Metabolic Eip219 CL 104 mEq/L 01/22/2015 Comp Metabolic Xtj528 CO2 29.0 mEq/L 01/22/2015 Comp Metabolic Gst048 AN ION GAP 9 01/22/2015 Comp Metabolic Qyq421 GL UCOSE 106 mg/dL 01/22/2015 Comp Metabolic Gdt760 Cr eat 0.9 mg/dL 01/22/2015 Comp Metabolic Qrm911 eG FR 63 ml/min/1.73m2 01/22 Comp Metabolic Qwj552 BUN 21 mg/dL 01/22/2015 Comp Metabolic Mzs751 B/ C Ratio 22.3 Ratio 01/22/2015 Comp Metabolic Nyg346 CA LCIUM 9.4 mg/dL 01/22/2015 Comp Metabolic Rqd669 AL K PHOS 83 U/L 01/22/2015 Comp Metabolic Gyg938 T(SGOT) 23 U/L 01/22/2015 Comp Metabolic Nqs141 AL T(SGPT) 18 U/L 01/22/2015 Comp Metabolic Pku370 BI LI T 0.8 mg/dL 01/22/2015 Comp Metabolic Gek374 AL BUMIN 4.2 g/dL 01/22/2015 Comp Metabolic Rjc531 TP RO 7.3 g/dL 01/22/2015 Comp Metabolic Bnc971 GL OB 3.1 g/dL 01/22/2015 Comp Metabolic Nrh002 A/ G Ratio 1.4 Ratio 01/22/2015 Comp Metabolic Ftu907 Os mo 279 mOsmo 01/22/2015 Review of [...] Procedure Codes Date THER/PROPH/DIAG INJ SC/IM CPT-4: 79988 09/02/2018 TRIAMCINOLONE ACET I [place] NOS CPT-4: J3301 09/02/2018 URINALYSIS NONAUTO W /O SCOPE CPT-4: 93776 03/05/2017 Vital Signs Date Vital 09/02/2018 Blood Pressure 1: 128/72 Code: 8480-6 BMI: 38.2 Code: 73761-0 Heart Rate 1: 80 bpm Height: 5'1" SpO2: 98% Weight: 202 lbs 04/14/2018 Blood Pressure 1: 116/78 Code: 8480-6 BMI: 41.6 Code: 61763-8 Heart Rate 1: 72 bpm Height: 5'1" SpO2: 98% Weight: 220 lbs 01/18/2018 Blood Pressure 1: 132/74 Code: 8480-6 BMI: 43.5 Code: 01146-7 Heart Rate 1: 70 bpm Height: 5'1" SpO2: 97% Weight: 230 lbs 01/04/2018 Blood Pressure 1: 134/76 Code: 8480-6 BMI: 42.7 Code: 27380-2 Heart Rate 1: 83 bpm Height: 5'1" SpO2: 98% Weight: 226 lbs 09/23/2017 Blood Pressure 1: 12476 Code: 8480-6 BMI: 42.3 Code: 77202-3 Heart Rate 1: 94 bpm Height: 5'1" SpO2: 96% Weight: 224 lbs 05/27/2017 Blood Pressure 1: 146/78 Code: 8480-6 BMI: 41.4 Code: 43115-7 Heart Rate 1: 85 bpm Height: 5'1" SpO2: 98% Weight: 219 lbs 02/24/2017 Blood Pressure 1: 138/66 Code: 8480-6 BMI: 41.4 Code: 05504-4 Heart Rate 1: 78 bpm Height: 5'1" SpO2: 97% Weight: 219 lbs 11/02/2016 Blood Pressure 1: 144/72 Code: 8480-6 BMI: 46.1 Code: 33274-3 Heart Rate 1: 78 bpm Height: 5'1" SpO2: 98% Weight: 244 lbs 09/30/2016 Blood Pressure 1: 130/76 Code: 8480-6 BMI: 45.0 Code: 03505-4 Heart Rate 1: 86 bpm Height: 5'1" SpO2: 98% Weight: 238 lbs 09/10/2016 Blood Pressure 1: 136/68 Code: 8480-6 BMI: 46.3 Code: 24296-8 Heart Rate 1: 83 bpm Height: 5'1" SpO2: 98% Weight: 245 lbs 08/20/2016 Blood Pressure 1: 142/78 Code: 8480-6 BMI: 45.3 Code: 16612-8 Heart Rate 1: 84 bpm Height: 5'1" SpO2: 99% Weight: 240 lbs 06/08/2016 Blood Pressure 1: 134/76 Code: 8480-6 BMI: 44.2 Code: 37139-0 Heart Rate 1: 86 bpm Height: 5'1" SpO2: 96% Weight: 234 lbs 04/02/2016 Blood Pressure 1: 142/70 Code: 8480-6 BMI: 44.6 Code: 47192-8 Heart Rate 1: 78 bpm Height: 5'1" SpO2: 97% Weight: 236 lbs 01/14/2016 Blood Pressure 1: 146/72 Code: 8480-6 BMI: 44.2 Code: 31076-6 Heart Rate 1: 86 bpm Height: 5'1" SpO2: 96% Weight: 234 lbs 10/02/2015 Blood Pressure 1: 158/76 Code: 8480-6 BMI: 44.2 Code: 45480-3 Heart Rate 1: 67 bpm Height: 5'1" SpO2: 97% Weight: 234 lbs 07/15/2015 Blood Pressure 1: 200/90 Code: 8480-6 Blood Pressure 1: 148/78 Code: 8480-6 BMI: 44.0 Code: 24874-0 Heart Rate 1: 89 bpm Height: 5'1" SpO2: 97% Weight: 233 lbs 06/10/2015 Blood Pressure 1: 140/82 Code: 8480-6 BMI: 44.0 Code: 94984-8 Heart Rate 1: 78 bpm Height: 5'1" [...] Other allergic rhinitis[ICD10: J30.89] Nata Almanza MD, [facility] CPT-4: 10955 09/02/2018 ([id number]) [id number] EST. 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 P ATIENT, LEVEL III Diagnosis: Localized edema[ICD10: R60.0] Diagnosis: Gastro-esophageal reflux disease without esophagitis[ICD10: K21.9] Edna Almanza MD, [facility] CPT-4: 24871 01/18/2018 ([id number]) 95633 EST. P ATIENT, LEVEL IV Diagnosis: Gastro-esophageal reflux disease without esophagitis[ICD10: K21.9] Diagnosis: Localized edema[ICD10: R60.0] Diagnosis: Essential (primary) hypertension[ICD10: I10] Diagnosis: Hypothyroidism, unspecified[ICD10: E03.9] Diagnosis: Impaired fasting glucose[ICD10: R73.01] Edna Almanza MD, [facility] CPT-4: 82167 01/04/2018 ([id number]) 72760 EST. 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 CPT-4: 55985 09/23/2017 ([id number]) 07579 EST. 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 PATIENT, LEVEL III Diagnosis: Pain in right hip[ICD10: M25.551] Nata Almanza MD, [facility] CPT-4: 82862 02/24/2017 ([id number]) 46038 EST. P ATIENT, LEVEL IV Diagnosis: Essential (primary) hypertension[ICD10: I10] Diagnosis: Localized edema[ICD10: R60.0] Diagnosis: Pain in right hip[ICD10: M25.551] Sarai Almanza MD, [facility] CPT-4: 81774 11/02/2016 ([id number]) 98609 EST. P ATIENT, LEVEL IV Diagnosis: Essential (primary) hypertension[ICD10: I10] Diagnosis: Localized edema[ICD10: R60.0] Sarai Almanza MD, [facility] CPT-4: 67640 09/30/2016 98455 EST. PATIENT, LEVEL IV Diagnosis: Localized edema[ICD10: R60.0] Diagnosis: Pain in joints of left hand[ICD10: M25.542] Diagnosis: Pain in joints of right hand[ICD10: M25.541] Nata Almanza MD, [facility] CPT-4: 88121 09/10/2016 04190 EST. PATIENT, LEVEL IV Diagnosis: Localized edema[ICD10: R60.0] Diagnosis: Pain in joints of left hand[ICD10: M25.542] Diagnosis: Pain in joints of right hand[ICD10: M25.541] Diagnosis: Other fatigue[ICD10: R53.83] Nata Almanza MD, [facility] CPT-4: 67271 08/20/2016 85868 EST. 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 PATIENT, LEVEL IV Diagnosis: Other allergic rhinitis[ICD10: J30.89] Diagnosis: Acute laryngopharyngitis[ICD10: J06.0] Nata Almanza MD, [facility] CPT-4: 63855 04/02/2016 36308 EST. PATIENT, LEVEL IV Diagnosis: Left upper quadrant pain[ICD10: R10.12] Nata Almanza MD, [facility] CPT-4: 35000 01/14/2016 14861 EST. PATIENT, LEVEL IV Diagnosis: Pain in left shoulder[ICD10: M25.512] Diagnosis: Body mass index (BMI) 40.0-44.9, adult[ICD10: Z68.41] Nata Almanza MD, [facility] CPT-4: 11903 10/02/2015 99318 EST. 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 09/02/2018 Appointment[phone] (15 min) Moderate 09/02/2018 Patient Education: Patient [...] A1C 04/14/2018 Appointment: Edna Douglas [phone] [facility] [phone] [place] (15 min) Moderate 04/14/2018 Patient Education: Patient [...] to further attempt to reduce peripheral edema. PXZQ-tqukjfmf-bxdmovjr prilosec BID and carafate QID -discussed low spice, low acidic diet 01/18/2018 Appointment: Edna Douglas WPtel: [phone] [phone] (15 min) Moderate 01/18/2018 Patient Education: Patient [...] of control. 01/04/2018 Appointment: Edna Douglas WPtel: [phone] [phone] (30 min) Complex 01/04/2018 Patient Education: Patient Medication Summary Completed 01/04/2018 Care Plan: [facility]0 Pending 01/04/2018 Visit Plan: Abdominal hernia - not able to be taken to surgery by local providers and pt has been seen at [facility] and that surgeon felt like Kat would [...] at home. 09/23/2017 Appointment: Sarai Almanza WPtel: [address] [place], [place] [phone] (15 min) Moderate 09/23/2017 Patient Education: Patient [...] to medications. 05/27/2017 Appointment: Edna Douglas WPtel: [phone] [phone] [place] (30 [...] [place]. 02/24/2017 Appointment: Nata Hsu [facility]Ptel[phone] [place] [place] (30 min) Complex 02/24/2017 Patient Education: [...] [place]. 11/02/2016 Appointment: [phone] [place] (15 min) Moderate 11/02/2016 Patient Education: [...] peripheral edema. 09/30/2016 Appointment: Sarai Almanza WPtel: [phone] [facility] (15 min) Moderate 09/30/2016 Patient Education: Patient [...] peripheral edema. 09/10/2016 Appointment: Nata Hsu WPtel: [phone] (30 min) Complex 09/10/2016 Patient Education: Patient [...] peripheral edema. 08/20/2016 Appointment: Nata Hsu WPtel: [phone] [place] [place] (30 min) Complex 08/20/2016 Patient Education: Patient Medication Summary Completed 08/20/2016 [facility] Ref[facility] Initiated 07/02/2016 Visit Plan: Chronic Anticoagulant [...] 06/08/2016 Care Plan: Referral Order SNOMED-CT : [id number] Pending 06/08/2016 Visit Plan: URI - Pt [...] allergy spray. 04/02/2016 Appointment: Nata Hsu WPtel: [address] [place], [place] [phone] (30 min) Complex 04/02/2016 Patient Education: Patient [...] acute pain 01/14/2016 Appointment: Edna Douglas WPtel: [phone] (30 min) Complex 01/14/2016 Patient Education: Patient Medication Summary Completed 01/14/2016 Patient Education: Obesity Completed 01/14/2016 Care Plan: BMI Above normal followup DAVID F-MGMT EDUC & TRAIN 1 PT Pending 10/24/2015 Care Plan: X-RAY EXAM OF SHOULDER LOINC : 13636-5 Pending 10/24/2015 Visit Plan: Left shoulder pain [...] weight check. 10/02/2015 Appointment: Edna Douglas [facility]Ptel[phone] [phone] (15 min) Moderate 10/02/2015 Patient Education: Patient [...] ses Completed 06/10/2015 Appointment: Sarai Almanza WPtel: [address] [place], [place] [phone] (15 min) Moderate 04/22/2015 Visit Plan: Hypertension [...] have surgical fixation - planning occurring at [facility]. Snoring - Sleep apnea symptoms [...] medications. 01/22/2015 Appointment: Sarai Almanza WPtel: [phone] [place] [place] ([place] New Patient 01/22/2015 Patient Education: Patient Medication Summary Completed 01/22/2015 Patient Education: Hypertension Completed 01/22/2015 [facility] [place] Referral Initiated Instructions Comment Come in Wednesday to [facility] ve PT [...] they worsen, or with other concerns. . Hypertension - wel l controlled - [...] to further attempt to reduce peripheral edema. DRAR-autnqroc-ymtivcsg prilosec BID and carafate QID -discussed low [...] providers and pt has been seen at [facility] and that surgeon felt like Kat would [...] now - Will refer to Dr. Rosa ash the staff get you scheduled for a [...] have surgical fixation - planning occurring at [facility]. Snoring - Sleep apnea symptoms [...]
--- OUTSIDE RECORDS SUMMARY | 2020-01-16 22:59 | XMS REPORT | CCD ---
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 Name Role Phone PP Unavailable CCM Unavailable Summary Purpose Interface Exchange Insurance Providers Payer name Policy type / Coverage type Covered republican ID Effective Begin Date Effective End Date WPS Medicare Part B Medicare Part B [id number] 2017 Unknown [employer] [place] Medicare Part B [id number] 2017 Unknown Family history Father Diagnosis Age At Onset Hyperlipidemia Unknown Heart Attack Unknown Mother Diagnosis Age At Onset Arthritis Unknown Social History Social History Element Codes Description Effective Dates Marital status Unknown M arried Nathan 09/30/2016 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 Number of children Unknown 3 01/22/[address]: 472256267 Never smoker 01/22/[address]: 860301416 Never drinks alcohol 01/22/2015 Allergies, Adverse Reactions, Alerts Substance Reaction Codes Entered Date Inactivated Date Status * NO KNOWN DRUG ORIN RGIES Unknown 01/22/2015 No Inactive Date Active Past Medical History Illness Codes Condition Status Onset Date Resolved Date Mixed hyperlipidemia ICD-9: 272.4 ICD-10: E78.2 Active 06/09/2015 Unknown Hypothyroidism, unsp ecified ICD-9: 244.9 ICD-10: E03.9 Active 05/27/2017 Unknown [employer] (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 ICD-9: V58.61 [...] 780.79 ICD-10: R53.83 Active 08/20/2016 Unknown Other prison (cur rent) drug therapy ICD-9: V58.69 ICD-10: [...] ICD-9: 244.9 ICD-10: E03.9 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/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 ICD-9: V58.61 [...] ICD-9: 780.79 ICD-10: R53.83 08/20/2016 Active Other prison (cur rent) drug therapy ICD-9: V58.69 ICD-10: [...] Fill Instructions Carafate 1 gram tablet RxNorm: 493985 TAKE ONE TABLET BY MOUTH BEFORE MEALS AN D AT BEDTIME 11/15/2018 12/10/2018 Active atenolol 100 mg tablet RxNorm: 030524 TAKE ONE TABLET BY MOUTH DAILY 10/24/2018 05/21/2019 Ac tive potassium chloride E R 20 mEq tablet,extended release RxNorm: 930676 2 Tablet(s) PO daily 10/18/2018 02/14/2019 Active potassium chloride E R 20 mEq tablet,extended release RxNorm: 893487 1 Tablet(s) PO daily 10/03/2018 10/17/2018 Inactive Carafate 1 gram tablet RxNorm: 711474 TAKE ONE TABLET BY MOUTH BEFORE MEALS AN D AT BEDTIME 09/26/2018 11/14/2018 Inactive Plavix 75 mg tablet RxNorm: 814337 TAKE ONE TABLET BY MOUTH DAILY 09/02/2018 02/28/2019 Ac tive prednisone 10 mg tablet RxNorm: 377819 Tablet(s) PO 09/02/2018 No Stop Date Active 60,60,50,50,40,40,30,30,20,20,10,10 Synthroid 125 mcg ta blet RxNorm: 386731 1 Tablet(s) PO daily 09/02/2018 08/27/2019 Active potassium chloride E R 20 mEq tablet,extended release RxNorm: 105048 1 Tablet(s) PO daily 09/02/2018 09/01/2018 Inactive potassium chloride E R 20 mEq tablet,extended release RxNorm: 414399 1 Tablet(s) PO daily 09/02/2018 10/02/2018 Inactive Synthroid 125 mcg ta blet RxNorm: 932987 1 Tablet(s) PO daily 09/02/2018 09/01/2018 Inactive Keflex 500 mg capsule RxNorm: 122966 1 Capsule(s) PO TID 09/02/2018 09/08/2018 Inactive Kenalog 40 mg/mL maxine pension for injection RxNorm: 9248078 Milliliter(s) Inj 09/02/2018 09/02/2018 In active Lipitor 40 mg tablet RxNorm: 964525 TAKE ONE TABLET BY MOUTH DAILY 07/29/2018 07/23/2019 Ac tive Coumadin 1 mg tablet RxNorm: 568161 TAKE ONE TABLET BY MOUTH DAILY 07/29/2018 10/26/2018 In active Carafate 1 gram tablet RxNorm: 032084 TAKE ONE TABLET BY MOUTH BEFORE MEALS AN D AT BEDTIME 07/28/2018 09/17/2018 Inactive Coumadin 4 mg tablet RxNorm: 312257 2 Tablet(s) daily 07/11/2018 02/05/2019 Active Generi c For:COUMADIN 4MG 07/22/2017 8:58:26 AM Coumadin 5 mg tablet RxNorm: 807299 Tablet(s) TAKE 1 TABLET BY MOUTH DIRE CTED 07/08/2018 01/03/2019 Ac tive Generic For:COUMADIN 5MG TAB 03/21/2018 9:13:00 AM Coumadin 4 mg tablet RxNorm: 100805 Tablet(s) TAKE 1 TABLET BY MOUTH THREE T IMES PER WEEK (WEDNESDAY, WEDNESDAY AND WEDNESDAY) 07/08/2018 07/10/2018 Inactive Gene andre For:COUMADIN 4MG 07/22/2017 8:58:26 AM Coumadin 1 mg tablet RxNorm: 635650 1 Tablet(s) PO daily 07/08/2018 08/06/2018 Inactive venlafaxine ER 75 mg capsule,extended release 24 hr RxNorm: 054868 Capsule(s) TAKE 1 CAPSULE BY MOUTH ONCE DAILY 06/23/2018 06/17/2019 Active Generic For:*EFFEXOR XR 75MG 06/19/2017 12:23:45 PM sodium bicarbonate 6 50 mg tablet RxNorm: 153346 Tablet(s) TAKE 2 TABL ETS BY MOUTH TWICE DAILY 06/23/2018 12/19/2018 Active 12/20/2017 9:10:59 AM Coumadin 1 mg tablet RxNorm: 761574 1 Tablet(s) PO daily 06/17/2018 07/07/2018 Inactive Coumadin 1 mg tablet RxNorm: 070217 1 Tablet(s) PO daily 06/17/2018 06/16/2018 Inactive clonazepam 0.5 mg ta blet RxNorm: 852142 1 Tablet(s) PO BID 06/08/2018 11/04/2018 Inactive spironolactone 25 mg tablet RxNorm: 270341 TAKE 1 TABLET BY MOUT H EVERY DAY 05/18/2018 05/12/2019 Ac tive Generic For:*ALDACTONE 25MG 05/18/2018 8:57:50 AM Carafate 1 gram tablet RxNorm: 060485 TAKE ONE TABLET BY MOUTH BEFORE MEALS AN D AT BEDTIME 05/18/2018 07/12/2018 Inactive Generic For:CARAFATE 1GM 1 07/18/2017 8:38:28 AM Synthroid 137 mcg ta blet RxNorm: 523246 TAKE 1 TABLET BY MOUT H ONCE DAILY 05/18/2018 08/30/2018 In active Generic For:SYNTHROID 137MCG TAB 2017 8:57:54 AM allopurinol 300 mg t ablet RxNorm: 236281 TAKE 1 TABLET BY MOUT H ONCE DAILY. 04/18/2018 10/14/2018 In active Generic For:ZYLOPRIM 300 MG TABLET 03/22 9:13:47 AM Lasix 20 mg tablet RxNorm: 360358 TAKE ONE TABLET BY MOUTH DAILY 04/18/2018 08/15/2018 In active Generic For:LASIX 20MG 04/18/2018 9:13: 50 AM Carafate 1 gram tablet RxNorm: 707260 TAKE ONE TABLET BY MOUTH BEFORE MEALS AN D AT BEDTIME 04/18/2018 05/17/2018 Inactive Generic For:CARAFATE 1GM 1 9:32:51 AM Coumadin 5 mg tablet RxNorm: 864574 TAKE 1 TABLET BY MOUTH DIRECTED 03/21/2018 07/07/2018 In active Generic For:COUMADIN 5MG TAB 03/21/2018 9:13:00 AM Carafate 1 gram tablet RxNorm: 893579 TAKE ONE TABLET BY MOUTH BEFORE MEALS AN D AT BEDTIME 03/21/2018 04/17/2018 Inactive Generic For:CARAFATE 1GM 1 9:14:24 AM Carafate 1 gram tablet RxNorm: 902246 1 Tablet(s) PO AC & HS 02/17/2018 03/20/2018 Inactive atenolol 100 mg tablet RxNorm: 939545 1 Tablet(s) PO daily 02/04/2018 09/01/2018 Inactive atenolol 50 mg tablet RxNorm: 700952 1 Tablet(s) PO daily 02/03/2018 02/03/2018 Inactive omeprazole 20 mg cap sean,delayed release RxNorm: 091574 1 Capsule(s) BID 01/21/2018 01/15/2019 Ac tive Generic For:PRILOSEC 20MG 07/22/2017 8:5 8:20 AM Carafate 1 gram tablet RxNorm: 058232 1 Tablet(s) PO AC & HS 01/21/2018 02/16/2018 Inactive Carafate 1 gram tablet RxNorm: 702802 1 Tablet(s) PO AC & HS 01/18/2018 01/20/2018 Inactive Carafate 1 gram tablet RxNorm: 173491 1 Tablet(s) PO AC & HS 01/18/2018 02/27/2018 Inactive Carafate 1 gram tablet RxNorm: 342398 1 Tablet(s) PO AC & HS TAKE ONE TABLET B Y MOUTH TWICE DAILY 01/18/2018 05/17/2018 Inactive Generic For:CARAFATE 1GM 0 12/20/2017 9:10:56 AM omeprazole 20 mg cap sean,delayed release RxNorm: 720822 Capsule(s) TAKE 1 CAP SEAN BY MOUTH EVERY DAY 01/17/2018 01/20/2018 Inactive Generic For:PRILOSEC 20MG 0 07/22/2017 8:58:20 AM omeprazole 20 mg cap sean,delayed release RxNorm: 360789 Capsule(s) TAKE 1 CAP SEAN BY MOUTH EVERY DAY 01/14/2018 01/16/2018 Inactive Generic For:PRILOSEC 20MG 07/22/2017 8:58:20 AM clonazepam 0.5 mg ta blet RxNorm: 343872 1 Tablet(s) PO BID 01/07/2018 06/05/2018 Inactive Plavix 75 mg tablet RxNorm: 413447 1 Tablet(s) PO daily 01/07/2018 07/05/2018 Inactive Carafate 1 gram tablet RxNorm: 910914 1 Tablet(s) PO AC & HS 01/04/2018 01/17/2018 Inactive Lasix 20 mg tablet RxNorm: 263400 TAKE ONE TABLET BY MOUTH DAILY 12/20/2017 04/17/2018 In active Generic For:LASIX 20MG 12/20/2017 9:11: 03 AM sodium bicarbonate 6 50 mg tablet RxNorm: 781746 TAKE 2 TABLETS BY JAVON TH TWICE DAILY 12/20/2017 06/17/2018 In active 12/20/2017 9:10:59 AM Carafate 1 gram tablet RxNorm: 813392 TAKE ONE TABLET BY MOUTH TWICE DAILY 12/20/2017 01/17/2018 In active Generic For:CARAFATE 1GM 12/20/2017 9:1 0:56 AM Synthroid 137 mcg ta blet RxNorm: 707332 TAKE 1 TABLET BY MOUT H ONCE DAILY 11/19/2017 05/17/2018 In active Generic For:SYNTHROID 137MCG TAB 2017 8:58:04 AM Detrol LA 4 mg capsu le,extended release RxNorm: 634350 TAKE 1 CAPSULE BY JAVON TH ONCE DAILY 10/20/2017 04/13/2018 Inactive Generic For:DETROL LA 4MG C AP 10/20/2017 9:01:56 AM allopurinol 300 mg t ablet RxNorm: 460013 TAKE 1 TABLET BY MOUT H ONCE DAILY. 10/20/2017 04/17/2018 In active Generic For:ZYLOPRIM 300 MG TABLET 07/2017 9:01:59 AM Coumadin 5 mg tablet RxNorm: 566021 1 Tablet(s) PO UD 10/01/2017 03/20/2018 Inactive cyclobenzaprine 5 mg tablet RxNorm: 414987 1 Tablet(s) PO TID as needed myscle spasm 09/23/2017 10/12/2017 Inactive Lipitor 40 mg tablet RxNorm: 243155 TAKE 1 TABLET BY MOUTH ONCE DAILY 09/20/2017 07/28/2018 In active Generic For:LIPITOR 40MG 09/20/2017 8:5 6:04 AM atenolol 100 mg tablet RxNorm: 835958 1 Tablet(s) PO daily 08/30/2017 02/03/2018 Inactive atenolol 50 mg tablet RxNorm: 782970 1 Tablet(s) PO daily 08/30/2017 08/30/2017 Inactive Lovenox 30 mg/0.3 mL subcutaneous syringe RxNorm: 499356 0.3 Milliliter(s) SQ Q12H 08/24/2017 09/06/2017 In active Lasix 20 mg tablet RxNorm: 104931 TAKE ONE TABLET BY MOUTH DAILY 08/23/2017 12/19/2017 In active Generic For:LASIX 20MG 08/21/2017 9:04: 27 AM Synthroid 137 mcg ta blet RxNorm: 754597 TAKE 1 TABLET BY MOUT H ONCE DAILY 08/23/2017 11/18/2017 In active Generic For:SYNTHROID 137MCG TAB 2017 9:04:30 AM Lovenox 30 mg/0.3 mL subcutaneous syringe RxNorm: 347588 0.3 Milliliter(s) SQ Q12H 08/10/2017 08/23/2017 In active clonazepam 0.5 mg ta blet RxNorm: 525221 1 Tablet(s) PO BID 08/04/2017 12/30/2017 Inactive omeprazole 20 mg cap sean,delayed release RxNorm: 325711 TAKE 1 CAPSULE BY JAVON TH EVERY DAY 07/22/2017 01/13/2018 Inactive Generic For:PRILOSEC 20MG 07/22/2017 8: 58:20 AM Coumadin 4 mg tablet RxNorm: 265372 TAKE 1 TABLET BY MOUTH THREE TIMES PER W HABEMATOLEL (WEDNESDAY, WEDNESDAY AND WEDNESDAY) 07/22/2017 10/03/2018 Inactive Generic For:COUMADIN 4MG 07/22/2017 8:58:26 AM Coumadin 4 mg tablet RxNorm: 383586 TAKE 1 TABLET BY MOUTH THREE TIMES PER W HABEMATOLEL (WEDNESDAY, WEDNESDAY AND WEDNESDAY) 07/22/2017 02/16/2018 Inactive Generic For:COUMADIN 4MG 07/22/2017 8:58:26 AM sodium bicarbonate 6 50 mg tablet RxNorm: 514439 TAKE 2 TABLETS BY JAVON TH TWICE DAILY 06/22/2017 12/18/2017 In active 06/19/2017 12:23:30 PM venlafaxine ER 75 mg capsule,extended release 24 hr RxNorm: 622750 TAKE 1 CAPSULE BY MOUTH ONCE DAILY 06/22/2017 06/16/2018 Inactive Generic For:*EFFEXOR XR 75M G 06/19/2017 12:23:45 PM Coumadin 5 mg tablet RxNorm: 438295 1 Tablet(s) PO UD 06/01/2017 09/30/2017 Inactive Keflex 500 mg capsule RxNorm: 176880 1 Capsule(s) PO TID 05/27/2017 06/02/2017 Inactive Synthroid 137 mcg ta blet RxNorm: 919307 TAKE 1 TABLET BY MOUT H ONCE DAILY 05/24/2017 08/21/2017 In active Generic For:SYNTHROID 137MCG TAB 2016 8:55:59 AM Carafate 1 gram tablet RxNorm: 549763 TAKE ONE TABLET BY MOUTH TWICE DAILY 05/24/2017 12/19/2017 In active Generic For:CARAFATE 1GM 05/24/2017 8:5 5:54 AM spironolactone 25 mg tablet RxNorm: 901863 1 Tablet(s) PO daily 05/24/2017 05/17/2018 Inactive Detrol LA 4 mg capsu le,extended release RxNorm: 469660 1 Capsule(s) PO daily TAKE 1 CAPSULE BY MOUTH ONCE DAILY 05/10/2017 10/19/2017 Inactive Generic For:DETROL LA 4MG CAP 02/19/2017 2:36:00 PM Lasix 20 mg tablet RxNorm: 183302 TAKE ONE TABLET BY MOUTH DAILY 04/23/2017 08/20/2017 In active Generic For:LASIX 20MG 04/23/2017 9:04: 01 AM Coumadin 4 mg tablet RxNorm: 103000 TAKE 1 TABLET BY MOUTH THREE TIMES PER W HABEMATOLEL (WEDNESDAY, WEDNESDAY AND WEDNESDAY) 04/23/2017 07/21/2017 Inactive Generic For:COUMADIN 4MG 04/23/2017 9:04:05 AM allopurinol 300 mg t ablet RxNorm: 270558 TAKE 1 TABLET BY MOUT H ONCE DAILY. 04/23/2017 10/19/2017 In active Generic For:ZYLOPRIM 300 MG TABLET 08/2016 9:03:57 AM potassium chloride 2 0 mEq/15 mL oral liquid RxNorm: 756686 Milliliter(s) 30 Milliliter(s) (40mEq) PO daily 03/24/2017 07/21/2017 Inactive Lovenox 30 mg/0.3 mL subcutaneous syringe RxNorm: 252557 0.3 Milliliter(s) SQ Q12H 03/22/2017 03/26/2017 In active Lovenox 30 mg/0.3 mL subcutaneous syringe RxNorm: 837992 0.3 Milliliter(s) SQ Q12H 03/19/2017 03/20/2017 In active Lovenox 30 mg/0.3 mL subcutaneous syringe RxNorm: 912639 0.3 Milliliter(s) SQ Q12H 03/16/2017 03/18/2017 In active clonazepam 0.5 mg ta blet RxNorm: 235942 1 Tablet(s) PO BID 03/02/2017 10/03/2018 Inactive Lovenox 30 mg/0.3 mL subcutaneous syringe RxNorm: 656176 1 injection SQ BID do NOT take the night time dose the day before surgery, or the morning dose the day of surgery 03/01/2017 03/07/2017 Inactive Lovenox 30 mg/0.3 mL subcutaneous syringe RxNorm: 383367 1 injection SQ BID 03/01/2017 02/28/2017 In active Detrol LA 4 mg capsu le,extended release RxNorm: 755816 TAKE 1 CAPSULE BY JAVON TH ONCE DAILY 02/19/2017 05/09/2017 Inactive Generic For:DETROL LA 4MG C AP 02/19/2017 2:36:00 PM hydrocodone 5 mg-humberto taminophen 325 mg tablet RxNorm: 039120 1-2 Tablet(s) PO Q6 P RN 02/04/2017 No Stop Date Active Zetia 10 mg tablet RxNorm: 039170 TAKE 1 TABLET BY MOUTH DAILY 01/25/2017 04/13/2018 Inactive 01/23/2017 9:03:48 AM omeprazole 20 mg cap sean,delayed release RxNorm: 163623 TAKE 1 CAPSULE BY JAVON TH EVERY DAY 01/25/2017 07/21/2017 Inactive Generic For:PRILOSEC 20MG 01/23/2017 9: 03:45 AM Coumadin 4 mg tablet RxNorm: 955420 TAKE 1 TABLET BY MOUTH THREE TIMES PER W HABEMATOLEL (WEDNESDAY, WEDNESDAY AND WEDNESDAY) 01/25/2017 04/22/2017 Inactive Generic For:COUMADIN 4MG 01/23/2017 9:03:51 AM sodium bicarbonate 6 50 mg tablet RxNorm: 804707 TAKE 2 TABLETS BY JAVON TH TWICE DAILY 12/24/2016 06/21/2017 In active 12/24/2016 9:09:27 AM Lasix 20 mg tablet RxNorm: 101609 1 Tablet(s) PO daily 12/24/2016 04/22/2017 Inactive Synthroid 137 mcg ta blet RxNorm: 605357 TAKE 1 TABLET BY MOUT H ONCE DAILY 11/24/2016 05/22/2017 In active Generic For:SYNTHROID 137MCG TAB 2016 9:04:37 AM Coumadin 4 mg tablet RxNorm: 615964 TAKE 1 TABLET BY MOUTH THREE TIMES PER W HABEMATOLEL (WEDNESDAY, WEDNESDAY AND WEDNESDAY) 11/24/2016 01/22/2017 Inactive Generic For:COUMADIN 4MG 11/24/2016 9:04:41 AM hydrocodone 5 mg-humberto taminophen 325 mg tablet RxNorm: 262261 1-2 Tablet(s) PO Q6 P RN 11/17/2016 02/03/2017 In active Carafate 1 gram tablet RxNorm: 359992 TAKE ONE TABLET BY MOUTH TWICE DAILY 10/27/2016 05/23/2017 In active Generic For:CARAFATE 1GM 10/26/2016 8:3 9:42 AM allopurinol 300 mg t ablet RxNorm: 836963 Tablet(s) TAKE 1 TABL ET BY MOUTH ONCE DAILY. 10/26/2016 04/22/2017 Inactive Lipitor 40 mg tablet RxNorm: 778511 1 Tablet(s) PO daily 09/25/2016 09/19/2017 Inactive Coumadin 4 mg tablet RxNorm: 695023 TAKE 1 TABLET BY MOUTH THREE TIMES PER W HABEMATOLEL (WEDNESDAY, WEDNESDAY AND WEDNESDAY) 09/25/2016 11/23/2016 Inactive Generic For:COUMADIN 4MG 09/25/2016 8:55:58 AM Zetia 10 mg tablet RxNorm: 722400 1 Tablet(s) PO daily 09/25/2016 01/22/2017 Inactive gave 1 month of samples clonazepam 0.5 mg ta blet RxNorm: 571927 1 Tablet(s) PO BID 09/21/2016 10/03/2018 Inactive Lasix 20 mg tablet RxNorm: 147618 1 Tablet(s) PO daily 09/15/2016 12/23/2016 Inactive potassium chloride 2 0 mEq/15 mL oral liquid RxNorm: 004158 Milliliter(s) 30 Milliliter(s) (40mEq) PO daily 09/15/2016 01/12/2017 Inactive Lasix 20 mg tablet RxNorm: 295036 2 Tablet(s) PO daily 09/10/2016 09/12/2016 Inactive Lasix 20 mg tablet RxNorm: 188720 1 Tablet(s) PO daily 08/28/2016 08/30/2016 Inactive Lasix 20 mg tablet RxNorm: 626052 1 Tablet(s) PO daily 08/20/2016 08/22/2016 Inactive Detrol LA 4 mg capsu le,extended release RxNorm: 828365 TAKE 1 CAPSULE BY JAVON ONCE DAILY 07/27/2016 02/18/2017 Inactive Generic For:DETROL LA 4MG C AP 07/27/2016 9:08:27 AM Coumadin 4 mg tablet RxNorm: 170332 1 Tablet(s) PO 3 x week wed and sun 07/27/2016 09/24/2016 In active omeprazole 20 mg cap sean,delayed release RxNorm: 406137 Capsule(s) PO TAKE 1 CAPSULE BY MOUTH ONCE DAILY 07/27/2016 01/22/2017 Inactive venlafaxine ER 75 mg capsule,extended release 24 hr RxNorm: 868770 1 Capsule(s) PO daily 06/29/2016 06/21/2017 Inactive sodium bicarbonate 6 50 mg tablet RxNorm: 389132 TAKE 2 TABLETS BY JAVON TWICE DAILY 06/29/2016 12/23/2016 In active 06/27/2016 9:05:39 AM Coumadin 4 mg tablet RxNorm: 975703 1 Tablet(s) PO 3 x week e th and sun 06/09/2016 06/08/2016 In active Coumadin 4 mg tablet RxNorm: 373831 1 Tablet(s) PO 3 x week e thur and sun 06/09/2016 07/26/2016 In active Zetia 10 mg tablet RxNorm: 368274 1 Tablet(s) PO daily 06/09/2016 06/08/2016 Inactive gave 1 month of samples Zetia 10 mg tablet RxNorm: 285139 1 Tablet(s) PO daily 06/09/2016 09/24/2016 Inactive gave 1 month of samples Effexor 75 mg tablet RxNorm: 717735 1 Tablet(s) PO daily 06/08/2016 06/28/2016 Inactive spironolactone 25 mg tablet RxNorm: 631211 1 Tablet(s) PO daily 06/08/2016 05/23/2017 Inactive Synthroid 137 mcg ta blet RxNorm: 854801 1 Tablet(s) PO daily 05/07/2016 11/02/2016 Inactive allopurinol 300 mg t ablet RxNorm: 755434 Tablet(s) TAKE 1 TABL ET BY MOUTH ONCE DAILY. 04/28/2016 10/24/2016 Inactive clonazepam 0.5 mg ta blet RxNorm: 802947 1 Tablet(s) PO BID 04/20/2016 10/03/2018 Inactive Flonase Allergy Reli ef 50 mcg/actuation nasal spray,suspension RxNorm: 8520665 1 Martin NASAL BID 04/02/2016 No Stop Date Active Zithromax Z-Thomas 250 mg tablet RxNorm: 982878 Tablet(s) PO 04/02/2016 08/27/2016 Inactive cetirizine 10 mg tablet RxNorm: 8173445 1 Tablet(s) PO daily 04/02/2016 05/01/2016 Inactive Carafate 1 gram tablet RxNorm: 327649 Tablet(s) TAKE 1 TABLET TWICE A DAY FOR 30 DAYS 03/30/2016 10/25/2016 Inactive Generic For:CARAFATE 1GM 02/08/2015 12:3 6:39 PM Plavix 75 mg tablet RxNorm: 565987 1 Tablet(s) PO daily 03/11/2016 09/06/2016 Inactive sodium bicarbonate 6 50 mg tablet RxNorm: 029554 Tablet(s) 2 Tablet(s) PO BID 02/28/2016 06/26/2016 In active omeprazole 20 mg cap sean,delayed release RxNorm: 376413 Capsule(s) PO TAKE 1 CAPSULE BY MOUTH ONCE DAILY 01/31/2016 07/26/2016 Inactive Fish Oil 1,000 mg ca psule RxNorm: 1 Capsule(s) PO BID 01/14/2016 No Stop Date Active Synthroid 137 mcg ta blet RxNorm: 644943 1 Tablet(s) PO daily 01/14/2016 05/06/2016 Inactive Detrol LA 4 mg capsu le,extended release RxNorm: 268586 TAKE 1 CAPSULE BY JAVON TH ONCE DAILY 12/30/2015 07/26/2016 Inactive Generic For:DETROL LA 4MG C AP 12/30/2015 9:11:01 AM potassium chloride 2 0 mEq/15 mL oral liquid RxNorm: 760286 Milliliter(s) 30 Milliliter(s) (40mEq) PO daily 12/02/2015 03/30/2016 Inactive sodium bicarbonate 6 50 mg tablet RxNorm: 738655 Tablet(s) 2 Tablet(s) PO BID 10/31/2015 02/27/2016 In active Lipitor 40 mg tablet RxNorm: 417815 1 Tablet(s) PO daily 10/09/2015 09/24/2016 Inactive sodium bicarbonate 6 50 mg tablet RxNorm: 018172 2 Tablet(s) PO BID 10/01/2015 10/30/2015 Inactive allopurinol 300 mg t ablet RxNorm: 243129 TAKE 1 TABLET BY MOUT H ONCE DAILY. 10/01/2015 04/27/2016 In active Generic For:ZYLOPRIM 300 MG TABLET 09/19 9:21:15 AM clonazepam 0.5 mg ta blet RxNorm: 274145 1 Tablet(s) PO BID 09/30/2015 04/19/2016 Inactive Coumadin 5 mg tablet RxNorm: 397613 1 Tablet(s) PO daily 09/27/2015 05/31/2017 Inactive Generic For:COUMADIN 5MG TAB N O T I C E PRESCRIPTION PREVIOUSLY AUTHORIZED BY DOCTOR:BOBBY ZULETA Synthroid 125 mcg ta blet RxNorm: 592047 1 Tablet(s) PO daily 09/27/2015 09/26/2015 Inactive Synthroid 125 mcg ta blet RxNorm: 363037 1 Tablet(s) PO daily 09/27/2015 01/13/2016 Inactive Carafate 1 gram tablet RxNorm: 233739 Tablet(s) TAKE 1 TABLET TWICE A DAY FOR 30 DAYS 09/02/2015 03/29/2016 Inactive Generic For:CARAFATE 1GM 02/08/2015 12:3 6:39 PM sodium bicarbonate 6 50 mg tablet RxNorm: 442267 2 Tablet(s) PO BID 09/02/2015 09/30/2015 Inactive Prilosec 20 mg capsu le,delayed release RxNorm: 889354 TAKE 1 CAPSULE BY JAVON TH ONCE DAILY 08/02/2015 01/28/2016 Inactive Generic For:PRILOSEC 20MG 08/02/2015 10:03:09 AM N O T I C E PRESCRIPTION PREVIOUSLY AUTHORIZED BY DOCTOR:BOBBY ZULETA Zyrtec 10 mg capsule RxNorm: 5505907 1 Capsule(s) PO daily 07/15/2015 08/13/2015 Inactive Keflex 500 mg capsule RxNorm: 997460 1 Capsule(s) PO TID 07/15/2015 07/21/2015 Inactive cetirizine 10 mg cap sean RxNorm: 7583649 1 Capsule(s) PO daily 07/15/2015 08/13/2015 Inactive hydrocodone 5 mg-humberto taminophen 325 mg tablet RxNorm: 661433 1-2 Tablet(s) PO Q6 P RN 06/10/2015 11/16/2016 In active sodium bicarbonate 6 50 mg tablet RxNorm: 938183 2 Tablet(s) PO BID 06/03/2015 08/31/2015 Inactive Detrol LA 4 mg capsu le,extended release RxNorm: 163858 TAKE 1 CAPSULE BY JAVON TH ONCE DAILY 06/03/2015 12/29/2015 Inactive Generic For:DETROL LA 4MG C AP N O T I C E PRESCRIPTION PREVIOUSLY AUTHORIZED BY DOCTOR:BOBBY ZULETA atenolol 50 mg tablet RxNorm: 480871 1 Tablet(s) PO daily TAKE 1 TABLET BY MO WIH DAILY 05/07/2015 08/23/2017 Inactive Generic For:TENORMIN 50MG 05/04/2015 9:07:22 AM spironolactone 25 mg tablet RxNorm: 696116 1 Tablet(s) PO daily 05/06/2015 06/07/2016 Inactive venlafaxine ER 75 mg capsule,extended release 24 hr RxNorm: 053229 1 Capsule(s) PO daily 05/04/2015 06/28/2016 Inactive atenolol 50 mg tablet RxNorm: 060776 TAKE 1 TABLET BY MOUTH DAILY 05/04/2015 05/06/2015 Inactive Generic For:TENORMIN 50MG 05/04/2015 9: 07:22 AM Synthroid 150 mcg ta blet RxNorm: 822417 TAKE 1 TABLET BY MOUT H ONCE DAILY. 04/05/2015 09/26/2015 In active Generic For:SYNTHROID 150MCG TAB 2014 4:45:40 PM N O T I C E PRESCRIPTION PREVIOUSLY AUTHORIZED BY DOCTOR:BOBBY ZULETA Effexor 75 mg tablet RxNorm: 626621 1 Tablet(s) PO daily 04/05/2015 07/03/2015 Inactive Coumadin 5 mg tablet RxNorm: 226843 TAKE 1 AND 1/2 TABLETS BY MOUTH ONCE MYRANDA LY 04/04/2015 09/26/2015 In active Generic For:COUMADIN 5MG TAB N O T I C E PRESCRIPTION PREVIOUSLY AUTHORIZED BY DOCTOR:BOBBY ZULETA clonazepam 0.5 mg ta blet RxNorm: 365639 1 Tablet(s) PO BID 03/13/2015 11/05/2015 Inactive sodium bicarbonate 6 50 mg tablet RxNorm: 001240 2 Tablet(s) PO BID 03/08/2015 06/02/2015 Inactive allopurinol 300 mg t ablet RxNorm: 439042 TAKE 1 TABLET BY MOUT H ONCE DAILY. 03/05/2015 09/30/2015 In active N O T I C E PRESCRIPTION PREVIOUSLY A UTHORIZED BY DOCTOR:BOBBY ZULETA Plavix 75 mg tablet RxNorm: 688952 1 Tablet(s) PO daily 02/12/2015 09/09/2015 Inactive clonazepam 0.5 mg ta blet RxNorm: 622528 1 Tablet(s) PO BID 02/11/2015 03/11/2015 Inactive Carafate 1 gram tablet RxNorm: 696709 TAKE 1 TABLET TWICE A DAY FOR 30 DAYS 02/08/2015 02/07/2015 In active Generic For:CARAFATE 1GM 02/08/2015 12:3 6:39 PM Carafate 1 gram tablet RxNorm: 536690 Tablet(s) TAKE 1 TABLET TWICE A DAY FOR 30 DAYS 02/08/2015 09/01/2015 Inactive Generic For:CARAFATE 1GM 02/08/2015 12:3 6:39 PM potassium chloride 2 0 mEq/15 mL oral liquid RxNorm: 037073 30 Milliliter(s) (40m Eq) PO daily 02/05/2015 12/01/2015 Inactive atenolol 50 mg tablet RxNorm: 732115 1 Tablet(s) PO daily 02/04/2015 05/03/2015 Inactive [SAVINGS FOR NON-COVERED DRUGS -- BIN: 0875, PCN: [id number], Group: XXXXX, ID# [id number], Questions: . THIS IS NOT INSURANCE.] potassium chloride 2 0 mEq/15 mL oral liquid RxNorm: 574924 30 Milliliter(s) (40m Eq) PO daily 01/08/2015 02/04/2015 Inactive potassium chloride 2 0 mEq/15 mL oral liquid RxNorm: 881426 30 Milliliter(s) (40m Eq) PO daily 12/07/2014 01/07/2015 Inactive atenolol 50 mg tablet RxNorm: 401629 1 Tablet(s) PO daily 11/09/2014 11/08/2014 Inactive atenolol 50 mg tablet RxNorm: 091772 1 Tablet(s) PO daily 11/09/2014 02/03/2015 Inactive [SAVINGS FOR NON-COVERED DRUGS -- BIN: 3585, PCN: [email or web address], Group: XXXXX, ID# [id number], Questions: . THIS IS NOT INSURANCE.] Voltaren 1 % topical gel RxNorm: 875771 TOP No St art Date Active verapamil ER (HS) 24 0 mg tablet,extended release 24 hr RxNorm: 038499 1 Tablet(s) PO daily No Start Date Active aspirin 81 mg tablet RxNorm: 000106 1 Tablet(s) PO daily No Start Date Active Zofran 4 mg tablet RxNorm: 313556 1 Tablet(s) PO PRN No Start Date Active B12 1000 mcg RxNorm: 1 Tablet(s) PO daily No Start Date Active magnesium oxide 400 mg capsule RxNorm: 459457 2 Capsule(s) PO BID No Start Date Active Synthroid 150 mcg ta blet RxNorm: 320405 1 Tablet(s) PO daily No Start Date 04/04/2015 Inactive Coumadin 5 mg tablet RxNorm: 682844 1 Tablet(s) PO daily No Start Date 04/03/2015 Inactive cranberry 1,000 mg c apsule RxNorm: 146511 1 Capsule(s) PO daily No Start Date 04/13/2018 Inactive allopurinol 300 mg t ablet RxNorm: 763732 1 Tablet(s) PO daily No Start Date 03/04/2015 Inactive Prilosec 20 mg capsu le,delayed release RxNorm: 142699 1 Capsule(s) PO PRN No Start Date 08/01/2015 Inactive potassium chloride 2 0 mEq/15 mL oral liquid RxNorm: 425405 30 Milliliter(s) (40m Eq) PO daily No Start Date 12/06/2014 Inactive atenolol 50 mg tablet RxNorm: 911933 1 Tablet(s) PO daily No Start Date 08/29/2017 Inactive Lipitor 40 mg tablet RxNorm: 566934 1 Tablet(s) PO daily No Start Date 09/19/2017 Inactive Effexor 75 mg tablet RxNorm: 212014 1 Tablet(s) PO daily No Start Date 04/04/2015 Inactive Carafate 1 gram tablet RxNorm: 320294 1 Tablet(s) PO BID No Start Date 02/07/2015 Inactive clonazepam 0.5 mg ta blet RxNorm: 464701 1 Tablet(s) PO BID No Start Date 02/10/2015 Inactive Plavix 75 mg tablet RxNorm: 723963 1 Tablet(s) PO daily No Start Date 02/11/2015 Inactive sodium bicarbonate 6 50 mg tablet RxNorm: 110144 2 Tablet(s) PO BID No Start Date 09/01/2015 Inactive Lovenox 30 mg/0.3 mL subcutaneous syringe RxNorm: 930780 0.3 Milliliter(s) SQ Q12H No Start Date 03/15/2017 Inactive Fish Oil 1,000 mg ca psule RxNorm: 1 Capsule(s) PO daily No Start Date 01/13/2016 Inactive Detrol LA 4 mg capsu le,extended release RxNorm: 751242 1 Capsule(s) PO daily No Start Date 06/02/2015 Inactive Medication Administered Medication Codes Instruc tions Start Date Status Kenalog 40 mg/mL suspension for injection RxNorm: 2586361 Milliliter 09/02/2018 No longer Active Immunizations Vaccine Codes Date Status SHINGARIX CVX: 121 03/23 completed Assessments Condition Codes Effectiv e Dates Mixed hyperlipidemia ICD-10: E78.2 ICD-9: 272.4 10/05/2018 Other acute sinusitis ICD-10: J01.80 ICD-9: 461.8 09/02/2018 Other allergic rhinitis ICD-10: J30. 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 ICD-9: V58.69 [...] Code Item Item Code Result Date Pt Mga3503 PT 26.3 seconds 10/13/2018 Pt Lcy7605 INR 2.5 10/13/2018 Pt Ezd4976 Low Intensity - 1.5-2.0 10/13/2018 Pt Hrz1413 Mod intensity - 2.0-3.0 10/13/2018 Pt Nez2710 Hi intensity - 3.0-4.0 10/13/2018 Lipid Ord30 CHOL 180 mg/dL 10/07/2018 Lipid Ord30 HDL 74.0 mg/dl 10/07/2018 Lipid Ord30 TRIG 111 mg/dL 10/07/2018 Lipid Ord30 LDL 84 mg/dL 10/07/2018 Lipid Ord30 C/HDL 2.4 Ratio 10/07/2018 Pt Kzp0283 PT 38.1 seconds 10/07/2018 Pt Aii2047 INR 3.9 10/07/2018 Pt Iit5875 Low Intensity - 1.5-2.0 10/07/2018 Pt Kzf5758 Mod intensity - 2.0-3.0 10/07/2018 Pt Mnn0769 Hi intensity - 3.0-4.0 10/07/2018 Tsh Ord6 TSH (3rd IS) 0.43 uIU/mL 09/02/2018 Comp Metabolic Vcp372 NA 136 mEq/L 09/02/2018 Comp Metabolic Tnm128 K 4.1 mEq/L 09/02/2018 Comp Metabolic Bas237 CL 103 mEq/L 09/02/2018 Comp Metabolic Gdy991 CO2 20.0 mEq/L 09/02/2018 Comp Metabolic Abq793 AN ION GAP 17 09/02/2018 Comp Metabolic Eww227 GL UCOSE 124 mg/dL 09/02/2018 Comp Metabolic Pvo686 Cr eat 1.0 mg/dL 09/02/2018 Comp Metabolic Del658 eG FR 57 ml/min/1.73m2 09/02 Comp Metabolic Vhg075 BUN 24 mg/dL 09/02/2018 Comp Metabolic Rev271 B/ C Ratio 23.8 Ratio 09/02/2018 Comp Metabolic Egk076 CA LCIUM 9.5 mg/dL 09/02/2018 Comp Metabolic Dsc021 AL K PHOS 64 U/L 09/02/2018 Comp Metabolic Npm670 T(SGOT) 24 U/L 09/02/2018 Comp Metabolic Rkv369 AL T(SGPT) 23 U/L 09/02/2018 Comp Metabolic Tub994 BI LI T 0.5 mg/dL 09/02/2018 Comp Metabolic Rsb522 AL BUMIN 4.2 g/dL 09/02/2018 Comp Metabolic Fny728 TP RO 7.4 g/dL 09/02/2018 Comp Metabolic Ekj404 GL OB 3.2 g/dL 09/02/2018 Comp Metabolic Rsr609 A/ G Ratio 1.3 Ratio 09/02/2018 Comp Metabolic Lnl450 Os mo 277 mOsmo 09/02/2018 Pt Jzz4981 PT 40.6 seconds 09/02/2018 Pt Wev4128 INR 4.2 09/02/2018 Pt Awh2401 Low Intensity - 1.5-2.0 09/02/2018 Pt Esu6999 Mod intensity - 2.0-3.0 09/02/2018 Pt Jjs1016 Hi intensity - 3.0-4.0 09/02/2018 Free T4 Zci214 FREE T4 1.51 ng/dL 09/02/2018 Magnesium Ord90 Mag 1.8 mg/dL 09/02/2018 Pt Kgr0363 PT 29.2 seconds 08/05/2018 Pt Yuc6635 INR 2.8 08/05/2018 Pt Nvw2588 Low Intensity - 1.5-2.0 08/05/2018 Pt Zfq2197 Mod intensity - 2.0-3.0 08/05/2018 Pt Xkd5662 Hi intensity - 3.0-4.0 08/05/2018 Pt Fkt7588 PT 30.2 seconds 07/25/2018 Pt Vge8510 INR 2.9 07/25/2018 Pt Rgi4112 Low Intensity - 1.5-2.0 07/25/2018 Pt Mpv8798 Mod intensity - 2.0-3.0 07/25/2018 Pt Hwc8129 Hi intensity - 3.0-4.0 07/25/2018 Pt Vmn3710 PT 25.2 seconds 07/19/2018 Pt Ojc5204 INR 2.3 07/19/2018 Pt Erd4212 Low Intensity - 1.5-2.0 07/19/2018 Pt Ymc6659 Mod intensity - 2.0-3.0 07/19/2018 Pt Zps3508 Hi intensity - 3.0-4.0 07/19/2018 Pt Dvg2326 PT 17.4 seconds 07/15/2018 Pt Feu3856 INR 1.5 07/15/2018 Pt Wua9927 Low Intensity - 1.5-2.0 07/15/2018 Pt Bvz9839 Mod intensity - 2.0-3.0 07/15/2018 Pt Mpn4215 Hi intensity - 3.0-4.0 07/15/2018 Pt Kim6691 PT 17.8 seconds 07/08/2018 Pt Znm4483 INR 1.5 07/08/2018 Pt Ylh0910 Low Intensity - 1.5-2.0 07/08/2018 Pt Lqp1289 Mod intensity - 2.0-3.0 07/08/2018 Pt Xae0759 Hi intensity - 3.0-4.0 07/08/2018 Pt Axk7783 PT 19.2 seconds 07/01/2018 Pt Lvy2369 INR 1.7 07/01/2018 Pt Osa2630 Low Intensity - 1.5-2.0 07/01/2018 Pt Qvq3006 Mod intensity - 2.0-3.0 07/01/2018 Pt Nvr1444 Hi intensity - 3.0-4.0 07/01/2018 Pt Amf6532 PT 17.4 seconds 06/23/2018 Pt Lpf9433 INR 1.5 06/23/2018 Pt Iel7183 Low Intensity - 1.5-2.0 06/23/2018 Pt Xsv5052 Mod intensity - 2.0-3.0 06/23/2018 Pt Wft8039 Hi intensity - 3.0-4.0 06/23/2018 Pt Flg6441 PT 18.4 seconds 06/17/2018 Pt Ojq7771 INR 1.6 06/17/2018 Pt Mfo2613 Low Intensity - 1.5-2.0 06/17/2018 Pt Kwx6913 Mod intensity - 2.0-3.0 06/17/2018 Pt Ggt0764 Hi intensity - 3.0-4.0 06/17/2018 Sed Rate [...] 30.4 pg 06/08/2018 Cbc With Differential Ord2 Cottle% 9.4 % 06/08/2018 Cbc With Differential Ord2 [...] 1.20 K/ul 06/08/2018 Cbc With Differential Ord2 Cottle ABS# 0.5 K/ul 06/08/2018 Cbc With Differential Ord2 Eos ABS# 0.1 K/ul 06/08/2018 Cbc With Differential Ord2 Baso ABS# 0.1 K/ul 06/08/2018 C-Reactive Protein Qnt Crqnt CRP 0.1 mg/dl 06/08/2018 Pt Lrs5977 PT 17.6 seconds 06/08/2018 Pt Vyl9936 INR 1.5 06/08/2018 Pt Zag2124 Low Intensity - 1.5-2.0 06/08/2018 Pt Eil7632 Mod intensity - 2.0-3.0 06/08/2018 Pt Bwi8852 Hi intensity - 3.0-4.0 06/08/2018 Pt Met0782 PT 16.8 seconds 05/10/2018 Pt Wre6518 INR 1.4 05/10/2018 Pt Hef5590 Low Intensity - 1.5-2.0 05/10/2018 Pt Kxb7969 Mod intensity - 2.0-3.0 05/10/2018 Pt Rut7279 Hi intensity - 3.0-4.0 05/10/2018 Pt Myt0361 PT 16.7 seconds 05/04/2018 Pt Kfz6329 INR 1.4 05/04/2018 Pt Ltz8941 Low Intensity - 1.5-2.0 05/04/2018 Pt Qrk2718 Mod intensity - 2.0-3.0 05/04/2018 Pt Cla6107 Hi intensity - 3.0-4.0 05/04/2018 Free T4 Jan651 FREE T4 1.09 ng/dL 04/14/2018 Tsh Ord6 TSH (3rd IS) 2.36 uIU/mL 04/14/2018 Pt Hrj7254 PT 20.3 seconds 04/14/2018 Pt Xnk8598 INR 1.8 04/14/2018 Pt Jhl7718 Low Intensity - 1.5-2.0 04/14/2018 Pt Dzd6204 Mod intensity - 2.0-3.0 04/14/2018 Pt Ivy7754 Hi intensity - 3.0-4.0 04/14/2018 Lipid Ord30 CHOL 149 mg/dL 04/14/2018 Lipid Ord30 HDL 49.0 mg/dl 04/14/2018 Lipid Ord30 TRIG 161 mg/dL 04/14/2018 Lipid Ord30 LDL 68 mg/dL 04/14/2018 Lipid Ord30 C/HDL 3.0 Ratio 04/14/2018 %Hba1C Egz851 % HbA1c 76358-7 5.9 % 04/14/2018 %Hba1C Oay476 Gluc Ave 123 mg/dL 04/14/2018 Comp Metabolic Ufy029 NA 140 mEq/L 04/14/2018 Comp Metabolic Fiq718 K 4.1 mEq/L 04/14/2018 Comp Metabolic Oge314 CL 105 mEq/L 04/14/2018 Comp Metabolic Flk269 CO2 28.0 mEq/L 04/14/2018 Comp Metabolic Rco985 AN ION GAP 11 04/14/2018 Comp Metabolic Scr590 GL UCOSE 112 mg/dL 04/14/2018 Comp Metabolic Nhl085 Cr eat 1.0 mg/dL 04/14/2018 Comp Metabolic Wcl543 eG FR 58 ml/min/1.73m2 04/14 Comp Metabolic Xmm895 BUN 20 mg/dL 04/14/2018 Comp Metabolic Rou735 B/ C Ratio 20.2 Ratio 04/14/2018 Comp Metabolic Qyq093 CA LCIUM 10.0 mg/dL 04/14/2018 Comp Metabolic Mjy813 AL K PHOS 51 U/L 04/14/2018 Comp Metabolic Smj301 T(SGOT) 24 U/L 04/14/2018 Comp Metabolic Kdz564 AL T(SGPT) 21 U/L 04/14/2018 Comp Metabolic Mid161 BI LI T 0.8 mg/dL 04/14/2018 Comp Metabolic Zwv793 AL BUMIN 4.2 g/dL 04/14/2018 Comp Metabolic Ccl210 TP RO 7.1 g/dL 04/14/2018 Comp Metabolic Rnn822 GL OB 2.9 g/dL 04/14/2018 Comp Metabolic Cec482 A/ G Ratio 1.5 Ratio 04/14/2018 Comp Metabolic Uyu459 Os mo 283 mOsmo 04/14/2018 Cbc With [...] 30.7 pg 04/14/2018 Cbc With Differential Ord2 Cottle% 10.6 % 04/14/2018 Cbc With Differential Ord2 [...] 1.18 K/ul 04/14/2018 Cbc With Differential Ord2 Cottle ABS# 0.5 K/ul 04/14/2018 Cbc With Differential Ord2 Eos ABS# 0.2 K/ul 04/14/2018 Cbc With Differential Ord2 Baso ABS# 0.1 K/ul 04/14/2018 Pt Xnk1644 PT 29.3 seconds 02/11/2018 Pt Wtj2430 INR 2.8 02/11/2018 Pt Ypt0963 Low Intensity - 1.5-2.0 02/11/2018 Pt Tdj8041 Mod intensity - 2.0-3.0 02/11/2018 Pt Pol7104 Hi intensity - 3.0-4.0 02/11/2018 Comp Metabolic Kci979 NA 141 mEq/L 01/05/2018 Comp Metabolic Anb644 K 3.7 mEq/L 01/05/2018 Comp Metabolic Tth918 CL 102 mEq/L 01/05/2018 Comp Metabolic Wxr348 CO2 29.0 mEq/L 01/05/2018 Comp Metabolic Gjf490 AN ION GAP 14 01/05/2018 Comp Metabolic Rvs642 GL UCOSE 136 mg/dL 01/05/2018 Comp Metabolic Tla630 Cr eat 1.0 mg/dL 01/05/2018 Comp Metabolic Zop784 eG FR 61 ml/min/1.73m2 01/05 Comp Metabolic Flh043 BUN 22 mg/dL 01/05/2018 Comp Metabolic Udq708 B/ C Ratio 22.9 Ratio 01/05/2018 Comp Metabolic Yyo327 CA LCIUM 9.7 mg/dL 01/05/2018 Comp Metabolic Hta966 AL K PHOS 57 U/L 01/05/2018 Comp Metabolic Rbj237 T(SGOT) 21 U/L 01/05/2018 Comp Metabolic Aln872 AL T(SGPT) 19 U/L 01/05/2018 Comp Metabolic Cfl212 BI LI T 0.9 mg/dL 01/05/2018 Comp Metabolic Gra168 AL BUMIN 4.1 g/dL 01/05/2018 Comp Metabolic Zwb225 TP RO 7.1 g/dL 01/05/2018 Comp Metabolic Edy267 GL OB 3.0 g/dL 01/05/2018 Comp Metabolic Frc395 A/ G Ratio 1.4 Ratio 01/05/2018 Comp Metabolic Ojp591 Os mo 287 mOsmo 01/05/2018 Free T4 Sau369 FREE T4 1.05 ng/dL 01/05/2018 %Hba1C Dzq061 % HbA1c 33919-9 6.0 % 01/05/2018 %Hba1C Ebz732 Gluc Ave 126 mg/dL 01/05/2018 Cbc With [...] 30.6 pg 01/05/2018 Cbc With Differential Ord2 Cottle% 10.5 % 01/05/2018 Cbc With Differential Ord2 [...] 1.27 K/ul 01/05/2018 Cbc With Differential Ord2 Cottle ABS# 0.5 K/ul 01/05/2018 Cbc With Differential Ord2 Eos ABS# 0.2 K/ul 01/05/2018 Cbc With Differential Ord2 Baso ABS# 0.1 K/ul 01/05/2018 Pt Udb8400 PT 20.7 seconds 01/05/2018 Pt Xmr0466 INR 1.8 01/05/2018 Pt Xtj0481 Low Intensity - 1.5-2.0 01/05/2018 Pt Rit8413 Mod intensity - 2.0-3.0 01/05/2018 Pt Naq1359 Hi intensity - 3.0-4.0 01/05/2018 Tsh Ord6 TSH (3rd IS) 2.34 uIU/mL 01/05/2018 Lipid Ord30 CHOL 156 mg/dL 01/05/2018 Lipid Ord30 HDL 48.0 mg/dl 01/05/2018 Lipid Ord30 TRIG 207 mg/dL 01/05/2018 Lipid Ord30 LDL 67 mg/dL 01/05/2018 Lipid Ord30 C/HDL 3.3 Ratio 01/05/2018 Pt Ovn1386 PT 28.3 seconds 11/26/2017 Pt Kow6638 INR 2.6 11/26/2017 Pt Kjn0849 Low Intensity - 1.5-2.0 11/26/2017 Pt Zho8364 Mod intensity - 2.0-3.0 11/26/2017 Pt Bhe0438 Hi intensity - 3.0-4.0 11/26/2017 Pt Mkd3666 PT 36.5 seconds 11/19/2017 Pt Tav4562 INR 3.6 11/19/2017 Pt Dqt7018 Low Intensity - 1.5-2.0 11/19/2017 Pt Qfw0601 Mod intensity - 2.0-3.0 11/19/2017 Pt Jie5417 Hi intensity - 3.0-4.0 11/19/2017 Pt Dkf0454 PT 22.9 seconds 10/15/2017 Pt Mxi9423 INR 2.0 10/15/2017 Pt Jzn8272 Low Intensity - 1.5-2.0 10/15/2017 Pt Tha8942 Mod intensity - 2.0-3.0 10/15/2017 Pt Nzk3089 Hi intensity - 3.0-4.0 10/15/2017 Pt Ace8271 PT 25.9 seconds 10/01/2017 Pt Gyz4712 INR 2.4 10/01/2017 Pt Ddq1355 Low Intensity - 1.5-2.0 10/01/2017 Pt Ket0141 Mod intensity - 2.0-3.0 10/01/2017 Pt Xpd3807 Hi intensity - 3.0-4.0 10/01/2017 Pt Qsj5108 PT 20.6 seconds 09/24/2017 Pt Dkz0057 INR 1.8 09/24/2017 Pt Fwt3852 Low Intensity - 1.5-2.0 09/24/2017 Pt Cau8445 Mod intensity - 2.0-3.0 09/24/2017 Pt Ebf7703 Hi intensity - 3.0-4.0 09/24/2017 Pt Blx9620 PT 21.0 seconds 09/15/2017 Pt Iet4415 INR 1.8 09/15/2017 Pt Goe2717 Low Intensity - 1.5-2.0 09/15/2017 Pt Alb2944 Mod intensity - 2.0-3.0 09/15/2017 Pt Ckp1530 Hi intensity - 3.0-4.0 09/15/2017 Pt Oal9989 PT 19.0 seconds 09/03/2017 Pt Kcc1097 INR 1.6 09/03/2017 Pt Kww7840 Low Intensity - 1.5-2.0 09/03/2017 Pt Mta4832 Mod intensity - 2.0-3.0 09/03/2017 Pt Qyv6268 Hi intensity - 3.0-4.0 09/03/2017 Pt Wyd2971 PT 17.6 seconds 08/23/2017 Pt Lzo6393 INR 1.5 08/23/2017 Pt Qru7196 Low Intensity - 1.5-2.0 08/23/2017 Pt Gsw6492 Mod intensity - 2.0-3.0 08/23/2017 Pt Mwm6629 Hi intensity - 3.0-4.0 08/23/2017 Pt Taq3540 PT 12.7 seconds 08/20/2017 Pt Nrm3019 INR 1.0 08/20/2017 Pt Yas5363 Low Intensity - 1.5-2.0 08/20/2017 Pt Ipf0419 Mod intensity - 2.0-3.0 08/20/2017 Pt Pwr4745 Hi intensity - 3.0-4.0 08/20/2017 Pt Nkn7381 PT 12.9 seconds 08/17/2017 Pt Vmh7110 INR 1.0 08/17/2017 Pt Gwy9464 Low Intensity - 1.5-2.0 08/17/2017 Pt Gsu4960 Mod intensity - 2.0-3.0 08/17/2017 Pt Edg6247 Hi intensity - 3.0-4.0 08/17/2017 Pt Vbg6494 PT 18.5 seconds 08/10/2017 Pt Mxm0918 INR 1.6 08/10/2017 Pt Irj3723 Low Intensity - 1.5-2.0 08/10/2017 Pt Oei1796 Mod intensity - 2.0-3.0 08/10/2017 Pt Rnl9539 Hi intensity - 3.0-4.0 08/10/2017 Tsh Ord6 [...] 29.3 pg 05/27/2017 Cbc With Differential Ord2 Cottle% 8.1 % 05/27/2017 Cbc With Differential Ord2 [...] 1.11 K/ul 05/27/2017 Cbc With Differential Ord2 Cottle ABS# 0.6 K/ul 05/27/2017 Cbc With Differential Ord2 Eos ABS# 0.2 K/ul 05/27/2017 Cbc With Differential Ord2 Baso ABS# 0.1 K/ul 05/27/2017 Pt Swj9297 PT 28.2 seconds 05/27/2017 Pt Kpa7499 INR 2.6 05/27/2017 Pt Nwn0728 Low Intensity - 1.5-2.0 05/27/2017 Pt Ivx1218 Mod intensity - 2.0-3.0 05/27/2017 Pt Xqk3361 Hi intensity - 3.0-4.0 05/27/2017 Lipid Ord30 CHOL 167 mg/dL 05/27/2017 Lipid Ord30 HDL 49.0 mg/dl 05/27/2017 Lipid Ord30 TRIG 347 mg/dL 05/27/2017 Lipid Ord30 LDL 49 mg/dL 05/27/2017 Lipid Ord30 C/HDL 3.4 Ratio 05/27/2017 Magnesium Ord90 Mag 1.4 mg/dL 05/27/2017 %Hba1C Wig786 % HbA1c 21946-6 5.9 % 05/27/2017 %Hba1C Uhh956 Gluc Ave 123 mg/dL 05/27/2017 Comp Metabolic Emw391 NA 138 mEq/L 05/27/2017 Comp Metabolic Ibz732 K 4.1 mEq/L 05/27/2017 Comp Metabolic Tmc106 CL 101 mEq/L 05/27/2017 Comp Metabolic Omw101 CO2 31.0 mEq/L 05/27/2017 Comp Metabolic Xxd131 AN ION GAP 10 05/27/2017 Comp Metabolic Lfz400 GL UCOSE 117 mg/dL 05/27/2017 Comp Metabolic Urn151 Cr eat 0.9 mg/dL 05/27/2017 Comp Metabolic Fia334 eG FR 62 ml/min/1.73m2 05/27 Comp Metabolic Thg357 BUN 25 mg/dL 05/27/2017 Comp Metabolic Vzc357 B/ C Ratio 26.6 Ratio 05/27/2017 Comp Metabolic Cfk497 CA LCIUM 9.5 mg/dL 05/27/2017 Comp Metabolic Ggc143 AL K PHOS 73 U/L 05/27/2017 Comp Metabolic Ofr512 T(SGOT) 18 U/L 05/27/2017 Comp Metabolic Jzf766 AL T(SGPT) 12 U/L 05/27/2017 Comp Metabolic Mxi052 BI LI T 0.5 mg/dL 05/27/2017 Comp Metabolic Rdi606 AL BUMIN 4.1 g/dL 05/27/2017 Comp Metabolic Exp225 TP RO 7.1 g/dL 05/27/2017 Comp Metabolic Vcn533 GL OB 3.0 g/dL 05/27/2017 Comp Metabolic Vht088 A/ G Ratio 1.3 Ratio 05/27/2017 Comp Metabolic Fep131 Os mo 281 mOsmo 05/27/2017 Free T4 Gff586 FREE T4 0.91 ng/dL 05/27/2017 Pt Qrd5833 PT 29.2 seconds 04/16/2017 Pt Uux5496 INR 2.7 04/16/2017 Pt Sjz7011 Low Intensity - 1.5-2.0 04/16/2017 Pt Bzl7613 Mod intensity - 2.0-3.0 04/16/2017 Pt Bfc4430 Hi intensity - 3.0-4.0 04/16/2017 Pt Hev4728 PT 30.7 seconds 03/31/2017 Pt Kmy1755 INR 2.9 03/31/2017 Pt Kro1173 Low Intensity - 1.5-2.0 03/31/2017 Pt Vcc1099 Mod intensity - 2.0-3.0 03/31/2017 Pt Ohb3736 Hi intensity - 3.0-4.0 03/31/2017 Pt Noi5862 PT 21.3 seconds 03/26/2017 Pt Cnn2068 INR 1.9 03/26/2017 Pt Xdl0862 Low Intensity - 1.5-2.0 03/26/2017 Pt Jzl6009 Mod intensity - 2.0-3.0 03/26/2017 Pt Dar9443 Hi intensity - 3.0-4.0 03/26/2017 Pt Pyg5852 PT 19.8 seconds 03/22/2017 Pt Npc5010 INR 1.7 03/22/2017 Pt Ewm5435 Low Intensity - 1.5-2.0 03/22/2017 Pt Dgd1863 Mod intensity - 2.0-3.0 03/22/2017 Pt Zfj4915 Hi intensity - 3.0-4.0 03/22/2017 Pt Quu1222 PT 15.6 seconds 03/19/2017 Pt Gmt4443 INR 1.3 03/19/2017 Pt Hgb2891 Low Intensity - 1.5-2.0 03/19/2017 Pt Xlo8966 Mod intensity - 2.0-3.0 03/19/2017 Pt Kyc6899 Hi intensity - 3.0-4.0 03/19/2017 Pt Hif6894 PT 13.7 seconds 03/15/2017 Pt Rlb8448 INR 1.1 03/15/2017 Pt Yzd4483 Low Intensity - 1.5-2.0 03/15/2017 Pt Oiv9235 Mod intensity - 2.0-3.0 03/15/2017 Pt Sgw4740 Hi intensity - 3.0-4.0 03/15/2017 Pt Bcq5275 PT 25.8 seconds 01/28/2017 Pt Wbc2694 INR 2.4 01/28/2017 Pt Wfc2263 Low Intensity - 1.5-2.0 01/28/2017 Pt Sbu6433 Mod intensity - 2.0-3.0 01/28/2017 Pt Jwc8015 Hi intensity - 3.0-4.0 01/28/2017 %Hba1C Pbo594 % HbA1c 78592-7 6.4 % 10/23/2016 %Hba1C Ovc929 Gluc Ave 137 mg/dL 10/23/2016 Comp Metabolic Adv427 NA 138 mEq/L 10/23/2016 Comp Metabolic Chw050 K 3.4 mEq/L 10/23/2016 Comp Metabolic Olm666 CL 100 mEq/L 10/23/2016 Comp Metabolic Npv655 CO2 30.0 mEq/L 10/23/2016 Comp Metabolic Cnm105 AN ION GAP 11 10/23/2016 Comp Metabolic Klx098 GL UCOSE 139 mg/dL 10/23/2016 Comp Metabolic Ups448 Cr eat 0.9 mg/dL 10/23/2016 Comp Metabolic Atf662 eG FR 62 ml/min/1.73m2 10/23 Comp Metabolic Zrv414 BUN 22 mg/dL 10/23/2016 Comp Metabolic Ech343 B/ C Ratio 23.4 Ratio 10/23/2016 Comp Metabolic Iek338 CA LCIUM 8.7 mg/dL 10/23/2016 Comp Metabolic Nmh099 AL K PHOS 66 U/L 10/23/2016 Comp Metabolic Fwp897 T(SGOT) 20 U/L 10/23/2016 Comp Metabolic Xre324 AL T(SGPT) 10 U/L 10/23/2016 Comp Metabolic Mge491 BI LI T 0.5 mg/dL 10/23/2016 Comp Metabolic Ezi003 AL BUMIN 3.5 g/dL 10/23/2016 Comp Metabolic Ykz034 TP RO 6.3 g/dL 10/23/2016 Comp Metabolic Tij667 GL OB 2.8 g/dL 10/23/2016 Comp Metabolic Tfd903 A/ G Ratio 1.3 Ratio 10/23/2016 Comp Metabolic Nwv677 Os mo 281 mOsmo 10/23/2016 Pt Ljd8247 PT 26.8 seconds 10/23/2016 Pt Wcw5406 INR 2.7 10/23/2016 Pt Bme6522 Low Intensity - 1.5-2.0 10/23/2016 Pt Snz5760 Mod intensity - 2.0-3.0 10/23/2016 Pt Kkf7193 Hi intensity - 3.0-4.0 10/23/2016 Pt Djr7196 PT 28.3 seconds 09/25/2016 Pt Vpa3931 INR 2.8 09/25/2016 Pt Tjt5395 Low Intensity - 1.5-2.0 09/25/2016 Pt Nri5043 Mod intensity - 2.0-3.0 09/25/2016 Pt Iza4532 Hi intensity - 3.0-4.0 09/25/2016 Metabolic Ord15 [...] Metabolic Ord15 CALCIUM 8.8 mg/dL 09/25/2016 Pt Tez3990 PT 30.6 seconds 09/11/2016 Pt Teu8753 INR 3.2 09/11/2016 Pt Xjx1124 Low Intensity - 1.5-2.0 09/11/2016 Pt Twp4474 Mod intensity - 2.0-3.0 09/11/2016 Pt Rqy7419 Hi intensity - 3.0-4.0 09/11/2016 Comp Metabolic Pbw571 NA 138 mEq/L 09/11/2016 Comp Metabolic Frw179 K 4.4 mEq/L 09/11/2016 Comp Metabolic Fav300 CL 103 mEq/L 09/11/2016 Comp Metabolic Apb110 CO2 31.0 mEq/L 09/11/2016 Comp Metabolic Hig909 AN ION GAP 8 09/11/2016 Comp Metabolic Aat379 GL UCOSE 146 mg/dL 09/11/2016 Comp Metabolic Vxh743 Cr eat 1.0 mg/dL 09/11/2016 Comp Metabolic Jfs572 eG FR 60 ml/min/1.73m2 09/11 Comp Metabolic Yuv343 BUN 16 mg/dL 09/11/2016 Comp Metabolic Phu825 B/ C Ratio 16.5 Ratio 09/11/2016 Comp Metabolic Dho702 CA LCIUM 8.7 mg/dL 09/11/2016 Comp Metabolic Tem932 AL K PHOS 52 U/L 09/11/2016 Comp Metabolic Drq026 T(SGOT) 19 U/L 09/11/2016 Comp Metabolic Jxl963 AL T(SGPT) 11 U/L 09/11/2016 Comp Metabolic Mso706 BI LI T 0.7 mg/dL 09/11/2016 Comp Metabolic Chf052 AL BUMIN 3.3 g/dL 09/11/2016 Comp Metabolic Tpf791 TP RO 5.8 g/dL 09/11/2016 Comp Metabolic Gug168 GL OB 2.5 g/dL 09/11/2016 Comp Metabolic Wxb138 A/ G Ratio 1.3 Ratio 09/11/2016 Comp Metabolic Wuf949 Os mo 280 mOsmo 09/11/2016 C-Reactive Protein Qnt Crqnt CRP 0.1 mg/dl 08/21/2016 Comp Metabolic Rjm362 NA 139 mEq/L 08/21/2016 Comp Metabolic Als586 K 4.1 mEq/L 08/21/2016 Comp Metabolic Gxk595 CL 102 mEq/L 08/21/2016 Comp Metabolic Yzw384 CO2 30.0 mEq/L 08/21/2016 Comp Metabolic Qxl494 AN ION GAP 11 08/21/2016 Comp Metabolic Svx773 GL UCOSE 148 mg/dL 08/21/2016 Comp Metabolic Ndv303 Cr eat 1.0 mg/dL 08/21/2016 Comp Metabolic Lze424 eG FR 55 ml/min/1.73m2 08/21 Comp Metabolic Hec224 BUN 21 mg/dL 08/21/2016 Comp Metabolic Tgf150 B/ C Ratio 20.2 Ratio 08/21/2016 Comp Metabolic Iby818 CA LCIUM 9.4 mg/dL 08/21/2016 Comp Metabolic Gfs079 AL K PHOS 63 U/L 08/21/2016 Comp Metabolic Fth273 T(SGOT) 23 U/L 08/21/2016 Comp Metabolic Anh689 AL T(SGPT) 16 U/L 08/21/2016 Comp Metabolic Zvt062 BI LI T 0.6 mg/dL 08/21/2016 Comp Metabolic Ffd459 AL BUMIN 3.9 g/dL 08/21/2016 Comp Metabolic Fmd041 TP RO 6.8 g/dL 08/21/2016 Comp Metabolic Xlk833 GL OB 2.9 g/dL 08/21/2016 Comp Metabolic Fja518 A/ G Ratio 1.4 Ratio 08/21/2016 Comp Metabolic Qgx631 Os mo 283 mOsmo 08/21/2016 Sed Rate Ord21 ESR 16 mm/hr 08/21/2016 Pt Wax5300 PT 27.2 seconds 08/21/2016 Pt Cmn9074 INR 2.7 08/21/2016 Pt Zxk8729 Low Intensity - 1.5-2.0 08/21/2016 Pt Rdo2529 Mod intensity - 2.0-3.0 08/21/2016 Pt Kxa0577 Hi intensity - 3.0-4.0 08/21/2016 Magnesium Ord90 Mag 1.9 mg/dL 08/21/2016 Pt Meu7847 PT 25.9 seconds 06/17/2016 Pt Grm6677 INR 2.5 06/17/2016 Pt Ipy1766 Low Intensity - 1.5-2.0 06/17/2016 Pt Sek4318 Mod intensity - 2.0-3.0 06/17/2016 Pt Ddb1410 Hi intensity - 3.0-4.0 06/17/2016 Tsh Ord6 hTSH II 2.13 uIU/mL 06/08/2016 Free T4 Jhw023 FREE T4 0.79 ng/dL 06/08/2016 Cbc With [...] 26.8 pg 06/08/2016 Cbc With Differential Ord2 Cottle% 12.0 % 06/08/2016 Cbc With Differential Ord2 [...] 1.40 K/ul 06/08/2016 Cbc With Differential Ord2 Cottle ABS# 0.7 K/ul 06/08/2016 Cbc With Differential Ord2 Eos ABS# 0.3 K/ul 06/08/2016 Cbc With Differential Ord2 Baso ABS# 0.1 K/ul 06/08/2016 %Hba1C Zgq778 % HbA1c 88080-6 6.2 % 06/08/2016 %Hba1C Ozc918 Gluc Ave 131 mg/dL 06/08/2016 Comp Metabolic Lgh536 NA 138 mEq/L 06/08/2016 Comp Metabolic Wfj556 K 3.9 mEq/L 06/08/2016 Comp Metabolic Gku650 CL 105 mEq/L 06/08/2016 Comp Metabolic Xbz532 CO2 27.0 mEq/L 06/08/2016 Comp Metabolic Wir816 AN ION GAP 10 06/08/2016 Comp Metabolic Ydo647 GL UCOSE 127 mg/dL 06/08/2016 Comp Metabolic Fya211 Cr eat 1.0 mg/dL 06/08/2016 Comp Metabolic Jim497 eG FR 59 ml/min/1.73m2 06/08 Comp Metabolic Axf796 BUN 19 mg/dL 06/08/2016 Comp Metabolic Zod536 B/ C Ratio 19.4 Ratio 06/08/2016 Comp Metabolic Zdn082 CA LCIUM 9.2 mg/dL 06/08/2016 Comp Metabolic Ozk992 AL K PHOS 77 U/L 06/08/2016 Comp Metabolic Rtv202 T(SGOT) 19 U/L 06/08/2016 Comp Metabolic Ohr791 AL T(SGPT) 13 U/L 06/08/2016 Comp Metabolic Tkm847 BI LI T 0.5 mg/dL 06/08/2016 Comp Metabolic Lgy404 AL BUMIN 3.8 g/dL 06/08/2016 Comp Metabolic Nny889 TP RO 6.6 g/dL 06/08/2016 Comp Metabolic Wuv756 GL OB 2.8 g/dL 06/08/2016 Comp Metabolic Spx168 A/ G Ratio 1.4 Ratio 06/08/2016 Comp Metabolic Wap476 Os mo 280 mOsmo 06/08/2016 Pt Gnl3014 PT 36.1 seconds 06/08/2016 Pt Rgw9271 INR 3.9 06/08/2016 Pt Alf9697 Low Intensity - 1.5-2.0 06/08/2016 Pt Omw3424 Mod intensity - 2.0-3.0 06/08/2016 Pt Qii5051 Hi intensity - 3.0-4.0 06/08/2016 Lipid Ord30 CHOL 149 mg/dL 06/08/2016 Lipid Ord30 HDL 46.0 mg/dl 06/08/2016 Lipid Ord30 TRIG 279 mg/dL 06/08/2016 Lipid Ord30 LDL 47 mg/dL 06/08/2016 Lipid Ord30 C/HDL 3.2 Ratio 06/08/2016 Pt Cwi1155 PT 30.9 seconds 02/12/2016 Pt Bun4609 INR 3.2 02/12/2016 Pt Psy1608 Low Intensity - 1.5-2.0 02/12/2016 Pt Zxx6991 Mod intensity - 2.0-3.0 02/12/2016 Pt Tcc7232 Hi intensity - 3.0-4.0 02/12/2016 Free T4 Xvb449 FREE T4 1.24 ng/dL 09/27/2015 %Hba1C Vmg493 % HbA1c 64693-2 6.4 % 09/27/2015 %Hba1C Qbg138 Gluc Ave 137 mg/dL 09/27/2015 Tsh Ord6 hTSH II 0.37 uIU/mL 09/27/2015 Pt Ezh6154 PT 26.2 seconds 09/27/2015 Pt Ago7049 INR 2.5 09/27/2015 Pt Gdf4495 Low Intensity - 1.5-2.0 09/27/2015 Pt Cje7275 Mod intensity - 2.0-3.0 09/27/2015 Pt Wcb7530 Hi intensity - 3.0-4.0 09/27/2015 Pt Lxd9876 PT 27.6 seconds 2015 Pt Fep4232 INR 2.7 2015 Pt Gqt1535 Low Intensity - 1.5-2.0 2015 Pt Ozk3015 Mod intensity - 2.0-3.0 2015 Pt Lou9588 Hi intensity - 3.0-4.0 2015 %Hba1C Hol192 % HbA1c 09697-0 6.1 % 06/11/2015 %Hba1C Ddj913 Gluc Ave 128 mg/dL 06/11/2015 Cbc With [...] Ord2 RDW 15.8 % 06/10/2015 Comp Metabolic Jqi203 NA 139 mEq/L 06/10/2015 Comp Metabolic Tmp252 K 4.1 mEq/L 06/10/2015 Comp Metabolic Hhx180 CL 105 mEq/L 06/10/2015 Comp Metabolic Yes500 CO2 27.0 mEq/L 06/10/2015 Comp Metabolic Uuv022 AN ION GAP 11 06/10/2015 Comp Metabolic Ilh023 GL UCOSE 127 mg/dL 06/10/2015 Comp Metabolic Mwu435 Cr eat 1.0 mg/dL 06/10/2015 Comp Metabolic Uya997 eG FR 59 ml/min/1.73m2 06/10 Comp Metabolic Qcy451 BUN 21 mg/dL 06/10/2015 Comp Metabolic Qim525 B/ C Ratio 21.2 Ratio 06/10/2015 Comp Metabolic Iya581 CA LCIUM 9.2 mg/dL 06/10/2015 Comp Metabolic Frx983 AL K PHOS 87 U/L 06/10/2015 Comp Metabolic Tqn848 T(SGOT) 20 U/L 06/10/2015 Comp Metabolic Xet284 AL T(SGPT) 17 U/L 06/10/2015 Comp Metabolic Dif580 BI LI T 0.4 mg/dL 06/10/2015 Comp Metabolic Plc381 AL BUMIN 4.1 g/dL 06/10/2015 Comp Metabolic Gby569 TP RO 7.2 g/dL 06/10/2015 Comp Metabolic Okt632 GL OB 3.1 g/dL 06/10/2015 Comp Metabolic Ptx906 A/ G Ratio 1.3 Ratio 06/10/2015 Comp Metabolic Bcs358 Os mo 282 mOsmo 06/10/2015 Tsh Ord6 hTSH II 0.86 uIU/mL 06/10/2015 Lipid Ord30 CHOL 161 mg/dL 06/10/2015 Lipid Ord30 HDL 49.0 mg/dl 06/10/2015 Lipid Ord30 TRIG 208 mg/dL 06/10/2015 Lipid Ord30 LDL 70 mg/dL 06/10/2015 Lipid Ord30 C/HDL 3.3 Ratio 06/10/2015 Pt Qcg1167 PT 25.0 seconds 04/09/2015 Pt Fxo2563 INR 2.4 04/09/2015 Pt Bpa2080 Low Intensity - 1.5-2.0 04/09/2015 Pt Bqv5734 Mod intensity - 2.0-3.0 04/09/2015 Pt Swy1131 Hi intensity - 3.0-4.0 04/09/2015 Free T4 Ovp086 FREE T4 1.05 ng/dL 01/22/2015 Pt Zbn4852 PT 27.2 seconds 01/22/2015 Pt Rvn2959 INR 2.6 01/22/2015 Pt Eej7854 Low Intensity - 1.5-2.0 01/22/2015 Pt Epi1862 Mod intensity - 2.0-3.0 01/22/2015 Pt Rve2983 Hi intensity - 3.0-4.0 01/22/2015 Cbc With [...] Differential Ord2 RDW 15.2 % 01/22/2015 B12 Tyx410 B12 402.00 pg/ml 01/22/2015 Tsh Ord6 hTSH II 0.65 uIU/mL 01/22/2015 Lipid Ord30 CHOL 166 mg/dL 01/22/2015 Lipid Ord30 HDL 48.0 mg/dl 01/22/2015 Lipid Ord30 TRIG 264 mg/dL 01/22/2015 Lipid Ord30 LDL 65 mg/dL 01/22/2015 Lipid Ord30 C/HDL 3.5 Ratio 01/22/2015 Comp Metabolic Ckm648 NA 138 mEq/L 01/22/2015 Comp Metabolic Ofy745 K 4.1 mEq/L 01/22/2015 Comp Metabolic Lfs001 CL 104 mEq/L 01/22/2015 Comp Metabolic Cbd506 CO2 29.0 mEq/L 01/22/2015 Comp Metabolic Pgi908 AN ION GAP 9 01/22/2015 Comp Metabolic Zee492 GL UCOSE 106 mg/dL 01/22/2015 Comp Metabolic Cak889 Cr eat 0.9 mg/dL 01/22/2015 Comp Metabolic Ycq507 eG FR 63 ml/min/1.73m2 01/22 Comp Metabolic Ats453 BUN 21 mg/dL 01/22/2015 Comp Metabolic Sja582 B/ C Ratio 22.3 Ratio 01/22/2015 Comp Metabolic Xax152 CA LCIUM 9.4 mg/dL 01/22/2015 Comp Metabolic Fia257 AL K PHOS 83 U/L 01/22/2015 Comp Metabolic Qka911 T(SGOT) 23 U/L 01/22/2015 Comp Metabolic Gcn017 AL T(SGPT) 18 U/L 01/22/2015 Comp Metabolic Mok102 BI LI T 0.8 mg/dL 01/22/2015 Comp Metabolic Auk662 AL BUMIN 4.2 g/dL 01/22/2015 Comp Metabolic Icd675 TP RO 7.3 g/dL 01/22/2015 Comp Metabolic Jxi136 GL OB 3.1 g/dL 01/22/2015 Comp Metabolic Qwh902 A/ G Ratio 1.4 Ratio 01/22/2015 Comp Metabolic Wao115 Os mo 279 mOsmo 01/22/2015 Review of [...] Procedure Codes Date THER/PROPH/DIAG INJ SC/IM CPT-4: 39856 09/02/2018 TRIAMCINOLONE ACET I [place] NOS CPT-4: J3301 09/02/2018 URINALYSIS NONAUTO W /O SCOPE CPT-4: 30253 03/05/2017 Vital Signs Date Vital 09/02/2018 Blood Pressure 1: 128/72 Code: 8480-6 BMI: 38.2 Code: 60408-4 Heart Rate 1: 80 bpm Height: 5'1" SpO2: 98% Weight: 202 lbs 04/14/2018 Blood Pressure 1: 116/78 Code: 8480-6 BMI: 41.6 Code: 53928-5 Heart Rate 1: 72 bpm Height: 5'1" SpO2: 98% Weight: 220 lbs 01/18/2018 Blood Pressure 1: 132/74 Code: 8480-6 BMI: 43.5 Code: 90176-1 Heart Rate 1: 70 bpm Height: 5'1" SpO2: 97% Weight: 230 lbs 01/04/2018 Blood Pressure 1: 134/76 Code: 8480-6 BMI: 42.7 Code: 38585-2 Heart Rate 1: 83 bpm Height: 5'1" SpO2: 98% Weight: 226 lbs 09/23/2017 Blood Pressure 1: 124/76 Code: 8480-6 BMI: 42.3 Code: 70439-0 Heart Rate 1: 94 bpm Height: 5'1" SpO2: 96% Weight: 224 lbs 05/27/2017 Blood Pressure 1: 146/78 Code: 8480-6 BMI: 41.4 Code: 79097-2 Heart Rate 1: 85 bpm Height: 5'1" SpO2: 98% Weight: 219 lbs 02/24/2017 Blood Pressure 1: 138/66 Code: 8480-6 BMI: 41.4 Code: 56753-7 Heart Rate 1: 78 bpm Height: 5'1" SpO2: 97% Weight: 219 lbs 11/02/2016 Blood Pressure 1: 144/72 Code: 8480-6 BMI: 46.1 Code: 01402-4 Heart Rate 1: 78 bpm Height: 5'1" SpO2: 98% Weight: 244 lbs 09/30/2016 Blood Pressure 1: 130/76 Code: 8480-6 BMI: 45.0 Code: 18775-5 Heart Rate 1: 86 bpm Height: 5'1" SpO2: 98% Weight: 238 lbs 09/10/2016 Blood Pressure 1: 136/68 Code: 8480-6 BMI: 46.3 Code: 09646-6 Heart Rate 1: 83 bpm Height: 5'1" SpO2: 98% Weight: 245 lbs 08/20/2016 Blood Pressure 1: 142/78 Code: 8480-6 BMI: 45.3 Code: 43960-4 Heart Rate 1: 84 bpm Height: 5'1" SpO2: 99% Weight: 240 lbs 06/08/2016 Blood Pressure 1: 134/76 Code: 8480-6 BMI: 44.2 Code: 80201-3 Heart Rate 1: 86 bpm Height: 5'1" SpO2: 96% Weight: 234 lbs 04/02/2016 Blood Pressure 1: 142/70 Code: 8480-6 BMI: 44.6 Code: 66412-4 Heart Rate 1: 78 bpm Height: 5'1" SpO2: 97% Weight: 236 lbs 01/14/2016 Blood Pressure 1: 146/72 Code: 8480-6 BMI: 44.2 Code: 68155-1 Heart Rate 1: 86 bpm Height: 5'1" SpO2: 96% Weight: 234 lbs 10/02/2015 Blood Pressure 1: 158/76 Code: 8480-6 BMI: 44.2 Code: 95070-1 Heart Rate 1: 67 bpm Height: 5'1" SpO2: 97% Weight: 234 lbs 07/15/2015 Blood Pressure 1: 200/90 Code: 8480-6 Blood Pressure 1: 148/78 Code: 8480-6 BMI: 44.0 Code: 46171-8 Heart Rate 1: 89 bpm Height: 5'1" SpO2: 97% Weight: 233 lbs 06/10/2015 Blood Pressure 1: 140/82 Code: 8480-6 BMI: 44.0 Code: 52479-8 Heart Rate 1: 78 bpm Height: 5'1" [...] wearing crocs and there was a new azeri on the floor: her foot didn't move [...] Encounters Encounter Performer Loca tion Codes Date [id number] EST. PATIENT, LEVEL IV Diagnosis: Other acute sinusitis[ICD10: J01.80] Diagnosis: Other allergic rhinitis[ICD10: J30.89] Nata Almanza MD, [facility] CPT-4: 07998 09/02/2018 ([id number]) 91460 EST. P ATIENT, LEVEL IV Diagnosis: Essential (primary) hypertension[ICD10: I10] Diagnosis: Hypothyroidism, unspecified[ICD10: E03.9] Diagnosis: Impaired fasting glucose[ICD10: R73.01] Diagnosis: care home (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[ICD10: Z79.01] Edna Almanza MD, [facility] CPT-4: 48302 04/14/2018 ([id number]) 30466 EST. P ATIENT, LEVEL III Diagnosis: Localized edema[ICD10: R60.0] Diagnosis: Gastro-esophageal reflux disease without esophagitis[ICD10: K21.9] Edna Almanza MD, [facility] CPT-4: 29788 01/18/2018 ([id number]) 21885 EST. P ATIENT, LEVEL IV Diagnosis: Gastro-esophageal reflux disease without esophagitis[ICD10: K21.9] Diagnosis: Localized edema[ICD10: R60.0] Diagnosis: Essential (primary) hypertension[ICD10: I10] Diagnosis: Hypothyroidism, unspecified[ICD10: E03.9] Diagnosis: Impaired fasting glucose[ICD10: R73.01] Edna Almanza MD, [facility] CPT-4: 49838 01/04/2018 ([id number]) 29763 EST. P ATIENT, LEVEL IV Diagnosis: Essential (primary) hypertension[ICD10: I10] Diagnosis: care home (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[ICD10: Z79.01] Diagnosis: Incisional hernia without obstruction or gangrene[ICD10: K43.2] Diagnosis: Right lower quadrant pain[ICD10: R10.31] Sarai Almanza MD, [facility] CPT-4: 06895 09/23/2017 ([id number]) 09728 EST. P ATIENT, LEVEL IV Diagnosis: Essential (primary) hypertension[ICD10: I10] Diagnosis: Mixed hyperlipidemia[ICD10: E78.2] Diagnosis: Hypothyroidism, unspecified[ICD10: E03.9] Diagnosis: Impaired fasting glucose[ICD10: R73.01] Diagnosis: care home (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[ICD10: Z79.01] Edna Almanza MD, [facility] CPT-4: 09314 05/27/2017 [id number] EST. PATIENT, LEVEL III Diagnosis: Pain in right hip[ICD10: M25.551] Nata Almanza MD, [facility] CPT-4: 55216 02/24/2017 ([id number]) 18798 EST. [facility]: Essential (primary) hypertension[ICD10: I10] Diagnosis: Localized edema[ICD10: R60.0] Diagnosis: Pain in right hip[ICD10: M25.551] Sarai Almnaza MD, [facility] CPT-4: 55547 11/02/2016 ([id number]) 01285 EST. [facility] Diagnosis: Essential (primary) hypertension[ICD10: I10] Diagnosis: Localized edema[ICD10: R60.0] Sarai Almanza MD, [facility] CPT-4: 66103 09/30/2016 [id number] EST. PATIENT, LEVEL IV Diagnosis: Localized edema[ICD10: R60.0] Diagnosis: Pain in joints of left hand[ICD10: M25.542] Diagnosis: Pain in joints of right hand[ICD10: M25.541] Nata Almanza MD, [facility] CPT-4: 33404 09/10/2016 82408 EST. PATIENT, LEVEL IV Diagnosis: Localized edema[ICD10: R60.0] Diagnosis: Pain in joints of left hand[ICD10: M25.542] Diagnosis: Pain in joints of right hand[ICD10: M25.541] Diagnosis: Other fatigue[ICD10: R53.83] Nata Almanza MD, [facility] CPT-4: 39767 08/20/2016 [id number] EST. PATIENT, LEVEL IV Diagnosis: Essential (primary) hypertension[ICD10: I10] Diagnosis: Other prison (current) drug therapy[ICD10: Z79.899] Diagnosis: Tinnitus, bilateral[ICD10: H93.13] Nata Almanza MD, [facility] CPT-4: 32343 06/08/2016 71472 EST. PATIENT, LEVEL IV Diagnosis: Other allergic rhinitis[ICD10: J30.89] Diagnosis: Acute laryngopharyngitis[ICD10: J06.0] Nata Almanza MD, [facility] CPT-4: 85148 04/02/2016 [id number] EST. PATIENT, LEVEL IV Diagnosis: Left upper quadrant pain[ICD10: R10.12] Nata Almanza MD, [facility] CPT-4: 67424 01/14/2016 72033 EST. PATIENT, LEVEL IV Diagnosis: Pain in left shoulder[ICD10: M25.512] Diagnosis: Body mass index (BMI) 40.0-44.9, adult[ICD10: Z68.41] Nata Almanza MD, [facility] CPT-4: 52815 10/02/2015 [id number] EST. 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 09/02/2018 [phone] [facility] ([facility] min[facility] Moderate 09/02/2018 Patient Education: Patient [...] Hgb A1C 04/14/2018 [facility]ment[phone] [phone] (15 min) Moderate 04/14/2018 Patient Education: [...] to further attempt to reduce peripheral edema. OLAB-cxqnjeyq-qmiprrnq prilosec BID and carafate QID -discussed low spice, low acidic diet 01/18/2018 Appointment: [phone] [phone] (15 min) Moderate 01/18/2018 Patient Education: [...] of control. 01/04/2018 Appointment: Edna Douglas [phone] (30 min) Complex 01/04/2018 Patient Education: Patient Medication Summary Completed 01/04/2018 Care Plan: SCREENINGMAMMOGRAPHYDIGITAL LOINC : 34242-8 Pending 01/04/2018 Visit Plan: Abdominal hernia - not able to be taken to surgery by local providers and pt has been seen at [facility] and that surgeon felt like Kat [...] at home. 09/23/2017 Appointment: Sar[facility]manza [facility] ([facility] min) Moderate 09/23/2017 Patient Education: [...] to medications. 05/27/2017 Appointment: Edna Douglas WPtel: [phone] [phone] (30 min) Complex 05/27/2017 Patient Education: Patient [...] Dr. Palacios. 02/24/2017 Appointment: Nata Hsu WPtel: [facility] (30 min) Complex 02/24/2017 Patient Education: Patient [...] Chaney. 11/02/2016 Appointment: Sarai Almanza WPtel: [phone] [phone] (15 min) Moderate 11/02/2016 Patient Education: Patient [...] edema. 09/30/2016 Appointment: Sarai Almanza WPtel: [phone] [facility] (15 min) Moderate 09/30/2016 Patient Education: [...] peripheral edema. 09/10/2016 Appointment: Nata Hsu WPtel: [facility]5 [phone] (30 min) Complex 09/10/2016 Patient Education: [...] peripheral edema. 08/20/2016 Appointment: Nata Hsu WPtel: [facility]1 [facility] (30 min) Complex 08/20/2016 Patient Education: Patient Medication Summary Completed 08/20/2016 Referral: Otf Lee [id number] [place] Referral Initiated 07/02/2016 Visit Plan: Chronic [...] 06/08/2016 Care Plan: Referral Order SNOMED-CT : [id number] Pending 06/08/2016 Visit Plan: URI - Pt [...] allergy spray. 04/02/2016 Appointment: Nata Hsu WPtel: [facility]3 [facility] (30 min) Complex 04/02/2016 Patient Education: Patient [...] pain 01/14/2016 Appointment: Edna Douglas WPtel: [phone] [phone] [place] (30 min) Complex 01/14/2016 Patient Education: Patient Medication Summary Completed 01/14/2016 Patient Education: Obesity Completed 01/14/2016 Care Plan: BMI Above normal followup DAVID F-MGMT EDUC & TRAIN 1 PT Pending 10/24/2015 Care Plan: X-RAY EXAM OF SHOULDER LOINC : 00041-0 Pending 10/24/2015 Visit Plan: Left shoulder pain [...] weight check. 10/02/2015 Appointment: Edna Douglas [facility]Ptel[phone] (15 min) Moderate [...] ses Completed 06/10/2015 Appointment: [facility] [phone] [facility] (15 min) Moderate 04/22/2015 Visit Plan: [...] have surgical fixation - planning occurring at [facility]. Snoring - Sleep apnea symptoms with [...] medications. 01/22/2015 Appointment: [facility]man[facility] [phone] [facility] [place] ([place] New Patient 01/22/2015 Patient Education: Patient Medication Summary Completed 01/22/2015 Patient Education: Hypertension Completed 01/22/2015 [facility] [place] Referral Initiated Instructions Comment . Chronic [...] providers and pt has been seen at [facility] and that surgeon felt like Kat [...] to further attempt to reduce peripheral edema. ZHHH-qbqohlxy-xrzkqzte prilosec BID and carafate QID -discussed low [...] control. Elevated blood sugars-check Hgb A1C dr lamanza will hav e the staff get you [...] have surgical fixation - planning occurring at [facility]. Snoring - Sleep apnea symptoms with [...]
--- OUTSIDE RECORDS SUMMARY | 2020-01-16 23:01 | XMS REPORT | CCD ---
Author Author Kat Almanza Organization Sarai Almanza MD, [facility] Address [address] [place] [address] Phone Care Team Providers Care Technical Inspector Name Role Phone PP Unavailable CCM Unavailable Summary Purpose Interface Exchange Insurance Providers Payer name Policy type / Coverage type Covered alliance party ID Effective Begin Date Effective End Date WPS Medicare Part B Medicare Part B [id number] 2017 Unknown [employer] Medicare Part B [id number] 2017 Unknown Family history Father Diagnosis Age At Onset Hyperlipidemia Unknown Heart Attack Unknown Mother Diagnosis Age At Onset Arthritis Unknown Social History Social History Element Codes Description Effective Dates Marital status Unknown M arried Nathan 09/30/2016 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 Number of children Unknown 3 01/22/[address]: 814820134 Never smoker 01/22/[address]: 164647958 Never drinks alcohol 01/22/2015 Allergies, Adverse Reactions, Alerts Substance Reaction Codes Entered Date Inactivated Date Status * NO KNOWN DRUG ORIN RGIES Unknown 01/22/2015 No Inactive Date Active Past Medical History Illness Codes Condition Status Onset Date Resolved Date Mixed hyperlipidemia ICD-9: 272.4 ICD-10: E78.2 Active 06/09/2015 Unknown Hypothyroidism, unsp ecified ICD-9: 244.9 ICD-10: E03.9 Active 05/27/2017 Unknown 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 [...] ecified ICD-9: 244.9 ICD-10: E03.9 05/27/2017 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 [...] Fill Instructions Carafate 1 gram tablet RxNorm: 860065 TAKE ONE TABLET BY MOUTH BEFORE MEALS AN D AT BEDTIME 11/15/2018 12/10/2018 Active atenolol 100 mg tablet RxNorm: 890632 TAKE ONE TABLET BY MOUTH DAILY 10/24/2018 05/21/2019 Ac tive potassium chloride E R 20 mEq tablet,extended release RxNorm: 885801 2 Tablet(s) PO daily 10/18/2018 02/14/2019 Active potassium chloride E R 20 mEq tablet,extended release RxNorm: 290108 1 Tablet(s) PO daily 10/03/2018 10/17/2018 Inactive Carafate 1 gram tablet RxNorm: 887843 TAKE ONE TABLET BY MOUTH BEFORE MEALS AN D AT BEDTIME 09/26/2018 11/14/2018 Inactive Plavix 75 mg tablet RxNorm: 346808 TAKE ONE TABLET BY MOUTH DAILY 09/02/2018 02/28/2019 Ac tive prednisone 10 mg tablet RxNorm: 540846 Tablet(s) PO 09/02/2018 No Stop Date Active 60,60,50,50,40,40,30,30,20,20,10,10 Synthroid 125 mcg ta blet RxNorm: 686745 1 Tablet(s) PO daily 09/02/2018 08/27/2019 Active potassium chloride E R 20 mEq tablet,extended release RxNorm: 859813 1 Tablet(s) PO daily 09/02/2018 09/01/2018 Inactive potassium chloride E R 20 mEq tablet,extended release RxNorm: 927828 1 Tablet(s) PO daily 09/02/2018 10/02/2018 Inactive Synthroid 125 mcg ta blet RxNorm: 607215 1 Tablet(s) PO daily 09/02/2018 09/01/2018 Inactive Keflex 500 mg capsule RxNorm: 290712 1 Capsule(s) PO TID 09/02/2018 09/08/2018 Inactive Kenalog 40 mg/mL maxine pension for injection RxNorm: 5611554 Milliliter(s) Inj 09/02/2018 09/02/2018 In active Lipitor 40 mg tablet RxNorm: 229970 TAKE ONE TABLET BY MOUTH DAILY 07/29/2018 07/23/2019 Ac tive Coumadin 1 mg tablet RxNorm: 397123 TAKE ONE TABLET BY MOUTH DAILY 07/29/2018 10/26/2018 In active Carafate 1 gram tablet RxNorm: 792212 TAKE ONE TABLET BY MOUTH BEFORE MEALS AN D AT BEDTIME 07/28/2018 09/17/2018 Inactive Coumadin 4 mg tablet RxNorm: 547359 2 Tablet(s) daily 07/11/2018 02/05/2019 Active Generi c For:COUMADIN 4MG 07/22/2017 8:58:26 AM Coumadin 5 mg tablet RxNorm: 819424 Tablet(s) TAKE 1 TABLET BY MOUTH DIRE CTED 07/08/2018 01/03/2019 Ac tive Generic For:COUMADIN 5MG TAB 03/21/2018 9:13:00 AM Coumadin 4 mg tablet RxNorm: 417415 Tablet(s) TAKE 1 TABLET BY MOUTH THREE T IMES PER WEEK (WEDNESDAY, WEDNESDAY AND WEDNESDAY) 07/08/2018 07/10/2018 Inactive Gene andre For:COUMADIN 4MG 07/22/2017 8:58:26 AM Coumadin 1 mg tablet RxNorm: 380994 1 Tablet(s) PO daily 07/08/2018 08/06/2018 Inactive venlafaxine ER 75 mg capsule,extended release 24 hr RxNorm: 890869 Capsule(s) TAKE 1 CAPSULE BY MOUTH ONCE DAILY 06/23/2018 06/17/2019 Active Generic For:*EFFEXOR XR 75MG 06/19/2017 12:23:45 PM sodium bicarbonate 6 50 mg tablet RxNorm: 463399 Tablet(s) TAKE 2 TABL ETS BY MOUTH TWICE DAILY 06/23/2018 12/19/2018 Active 12/20/2017 9:10:59 AM Coumadin 1 mg tablet RxNorm: 884140 1 Tablet(s) PO daily 06/17/2018 07/07/2018 Inactive Coumadin 1 mg tablet RxNorm: 997565 1 Tablet(s) PO daily 06/17/2018 06/16/2018 Inactive clonazepam 0.5 mg ta blet RxNorm: 342100 1 Tablet(s) PO BID 06/08/2018 11/04/2018 Inactive spironolactone 25 mg tablet RxNorm: 629328 TAKE 1 TABLET BY MOUT H EVERY DAY 05/18/2018 05/12/2019 Ac tive Generic For:*ALDACTONE 25MG 05/18/2018 8:57:50 AM Carafate 1 gram tablet RxNorm: 855121 TAKE ONE TABLET BY MOUTH BEFORE MEALS AN D AT BEDTIME 05/18/2018 07/12/2018 Inactive Generic For:CARAFATE 1GM 1 07/18/2017 8:38:28 AM Synthroid 137 mcg ta blet RxNorm: 290766 TAKE 1 TABLET BY MOUT H ONCE DAILY 05/18/2018 08/30/2018 In active Generic For:SYNTHROID 137MCG TAB 2017 8:57:54 AM allopurinol 300 mg t ablet RxNorm: 015055 TAKE 1 TABLET BY MOUT H ONCE DAILY. 04/18/2018 10/14/2018 In active Generic For:ZYLOPRIM 300 MG TABLET 03/22 9:13:47 AM Lasix 20 mg tablet RxNorm: 289324 TAKE ONE TABLET BY MOUTH DAILY 04/18/2018 08/15/2018 In active Generic For:LASIX 20MG 04/18/2018 9:13: 50 AM Carafate 1 gram tablet RxNorm: 176650 TAKE ONE TABLET BY MOUTH BEFORE MEALS AN D AT BEDTIME 04/18/2018 05/17/2018 Inactive Generic For:CARAFATE 1GM 1 9:32:51 AM Coumadin 5 mg tablet RxNorm: 493385 TAKE 1 TABLET BY MOUTH DIRECTED 03/21/2018 07/07/2018 In active Generic For:COUMADIN 5MG TAB 03/21/2018 9:13:00 AM Carafate 1 gram tablet RxNorm: 096292 TAKE ONE TABLET BY MOUTH BEFORE MEALS AN D AT BEDTIME 03/21/2018 04/17/2018 Inactive Generic For:CARAFATE 1GM 1 9:14:24 AM Carafate 1 gram tablet RxNorm: 021363 1 Tablet(s) PO AC & HS 02/17/2018 03/20/2018 Inactive atenolol 100 mg tablet RxNorm: 647468 1 Tablet(s) PO daily 02/04/2018 09/01/2018 Inactive atenolol 50 mg tablet RxNorm: 085728 1 Tablet(s) PO daily 02/03/2018 02/03/2018 Inactive omeprazole 20 mg cap sean,delayed release RxNorm: 341931 1 Capsule(s) BID 01/21/2018 01/15/2019 Ac tive Generic For:PRILOSEC 20MG 07/22/2017 8:5 8:20 AM Carafate 1 gram tablet RxNorm: 241028 1 Tablet(s) PO AC & HS 01/21/2018 02/16/2018 Inactive Carafate 1 gram tablet RxNorm: 814991 1 Tablet(s) PO AC & HS 01/18/2018 01/20/2018 Inactive Carafate 1 gram tablet RxNorm: 097239 1 Tablet(s) PO AC & HS 01/18/2018 02/27/2018 Inactive Carafate 1 gram tablet RxNorm: 376566 1 Tablet(s) PO AC & HS TAKE ONE TABLET B Y MOUTH TWICE DAILY 01/18/2018 05/17/2018 Inactive Generic For:CARAFATE 1GM 0 12/20/2017 9:10:56 AM omeprazole 20 mg cap sean,delayed release RxNorm: 231819 Capsule(s) TAKE 1 CAP SEAN BY MOUTH EVERY DAY 01/17/2018 01/20/2018 Inactive Generic For:PRILOSEC 20MG 0 07/22/2017 8:58:20 AM omeprazole 20 mg cap sean,delayed release RxNorm: 467934 Capsule(s) TAKE 1 CAP SEAN BY MOUTH EVERY DAY 01/14/2018 01/16/2018 Inactive Generic For:PRILOSEC 20MG 07/22/2017 8:58:20 AM clonazepam 0.5 mg ta blet RxNorm: 732374 1 Tablet(s) PO BID 01/07/2018 06/05/2018 Inactive Plavix 75 mg tablet RxNorm: 734040 1 Tablet(s) PO daily 01/07/2018 07/05/2018 Inactive Carafate 1 gram tablet RxNorm: 774300 1 Tablet(s) PO AC & HS 01/04/2018 01/17/2018 Inactive Lasix 20 mg tablet RxNorm: 017572 TAKE ONE TABLET BY MOUTH DAILY 12/20/2017 04/17/2018 In active Generic For:LASIX 20MG 12/20/2017 9:11: 03 AM sodium bicarbonate 6 50 mg tablet RxNorm: 817012 TAKE 2 TABLETS BY JAVON TH TWICE DAILY 12/20/2017 06/17/2018 In active 12/20/2017 9:10:59 AM Carafate 1 gram tablet RxNorm: 464708 TAKE ONE TABLET BY MOUTH TWICE DAILY 12/20/2017 01/17/2018 In active Generic For:CARAFATE 1GM 12/20/2017 9:1 0:56 AM Synthroid 137 mcg ta blet RxNorm: 011467 TAKE 1 TABLET BY MOUT H ONCE DAILY 11/19/2017 05/17/2018 In active Generic For:SYNTHROID 137MCG TAB 2017 8:58:04 AM Detrol LA 4 mg capsu le,extended release RxNorm: 166585 TAKE 1 CAPSULE BY JAVON TH ONCE DAILY 10/20/2017 04/13/2018 Inactive Generic For:DETROL LA 4MG C AP 10/20/2017 9:01:56 AM allopurinol 300 mg t ablet RxNorm: 558193 TAKE 1 TABLET BY MOUT H ONCE DAILY. 10/20/2017 04/17/2018 In active Generic For:ZYLOPRIM 300 MG TABLET 07/2017 9:01:59 AM Coumadin 5 mg tablet RxNorm: 066409 1 Tablet(s) PO UD 10/01/2017 03/20/2018 Inactive cyclobenzaprine 5 mg tablet RxNorm: 689314 1 Tablet(s) PO TID as needed myscle spasm 09/23/2017 10/12/2017 Inactive Lipitor 40 mg tablet RxNorm: 164567 TAKE 1 TABLET BY MOUTH ONCE DAILY 09/20/2017 07/28/2018 In active Generic For:LIPITOR 40MG 09/20/2017 8:5 6:04 AM atenolol 100 mg tablet RxNorm: 893844 1 Tablet(s) PO daily 08/30/2017 02/03/2018 Inactive atenolol 50 mg tablet RxNorm: 330028 1 Tablet(s) PO daily 08/30/2017 08/30/2017 Inactive Lovenox 30 mg/0.3 mL subcutaneous syringe RxNorm: 229089 0.3 Milliliter(s) SQ Q12H 08/24/2017 09/06/2017 In active Lasix 20 mg tablet RxNorm: 381763 TAKE ONE TABLET BY MOUTH DAILY 08/23/2017 12/19/2017 In active Generic For:LASIX 20MG 08/21/2017 9:04: 27 AM Synthroid 137 mcg ta blet RxNorm: 634915 TAKE 1 TABLET BY MOUT H ONCE DAILY 08/23/2017 11/18/2017 In active Generic For:SYNTHROID 137MCG TAB 2017 9:04:30 AM Lovenox 30 mg/0.3 mL subcutaneous syringe RxNorm: 347536 0.3 Milliliter(s) SQ Q12H 08/10/2017 08/23/2017 In active clonazepam 0.5 mg ta blet RxNorm: 520264 1 Tablet(s) PO BID 08/04/2017 12/30/2017 Inactive omeprazole 20 mg cap sean,delayed release RxNorm: 665077 TAKE 1 CAPSULE BY JAVON TH EVERY DAY 07/22/2017 01/13/2018 Inactive Generic For:PRILOSEC 20MG 07/22/2017 8: 58:20 AM Coumadin 4 mg tablet RxNorm: 208546 TAKE 1 TABLET BY MOUTH THREE TIMES PER [place] (WEDNESDAY, WEDNESDAY AND WEDNESDAY) 07/22/2017 10/03/2018 Inactive Generic For:COUMADIN 4MG 07/22/2017 8:58:26 AM Coumadin 4 mg tablet RxNorm: 323636 TAKE 1 TABLET BY MOUTH THREE TIMES PER [place] (WEDNESDAY, WEDNESDAY AND WEDNESDAY) 07/22/2017 02/16/2018 Inactive Generic For:COUMADIN 4MG 07/22/2017 8:58:26 AM sodium bicarbonate 6 50 mg tablet RxNorm: 388104 TAKE 2 TABLETS BY JAVON TH TWICE DAILY 06/22/2017 12/18/2017 In active 06/19/2017 12:23:30 PM venlafaxine ER 75 mg capsule,extended release 24 hr RxNorm: 639830 TAKE 1 CAPSULE BY MOUTH ONCE DAILY 06/22/2017 06/16/2018 Inactive Generic For:*EFFEXOR XR 75M G 06/19/2017 12:23:45 PM Coumadin 5 mg tablet RxNorm: 163453 1 Tablet(s) PO UD 06/01/2017 09/30/2017 Inactive Keflex 500 mg capsule RxNorm: 022091 1 Capsule(s) PO TID 05/27/2017 06/02/2017 Inactive Synthroid 137 mcg ta blet RxNorm: 719431 TAKE 1 TABLET BY MOUT H ONCE DAILY 05/24/2017 08/21/2017 In active Generic For:SYNTHROID 137MCG TAB 2016 8:55:59 AM Carafate 1 gram tablet RxNorm: 865221 TAKE ONE TABLET BY MOUTH TWICE DAILY 05/24/2017 12/19/2017 In active Generic For:CARAFATE 1GM 05/24/2017 8:5 5:54 AM spironolactone 25 mg tablet RxNorm: 814610 1 Tablet(s) PO daily 05/24/2017 05/17/2018 Inactive Detrol LA 4 mg capsu le,extended release RxNorm: 171721 1 Capsule(s) PO daily TAKE 1 CAPSULE BY MOUTH ONCE DAILY 05/10/2017 10/19/2017 Inactive Generic For:DETROL LA 4MG CAP 02/19/2017 2:36:00 PM Lasix 20 mg tablet RxNorm: 972823 TAKE ONE TABLET BY MOUTH DAILY 04/23/2017 08/20/2017 In active Generic For:LASIX 20MG 04/23/2017 9:04: 01 AM Coumadin 4 mg tablet RxNorm: 243039 TAKE 1 TABLET BY MOUTH THREE TIMES PER [place] (WEDNESDAY, WEDNESDAY AND WEDNESDAY) 04/23/2017 07/21/2017 Inactive Generic For:COUMADIN 4MG 04/23/2017 9:04:05 AM allopurinol 300 mg t ablet RxNorm: 237357 TAKE 1 TABLET BY MOUT H ONCE DAILY. 04/23/2017 10/19/2017 In active Generic For:ZYLOPRIM 300 MG TABLET 08/2016 9:03:57 AM potassium chloride 2 0 mEq/15 mL oral liquid RxNorm: 334544 Milliliter(s) 30 Milliliter(s) (40mEq) PO daily 03/24/2017 07/21/2017 Inactive Lovenox 30 mg/0.3 mL subcutaneous syringe RxNorm: 677082 0.3 Milliliter(s) SQ Q12H 03/22/2017 03/26/2017 In active Lovenox 30 mg/0.3 mL subcutaneous syringe RxNorm: 032889 0.3 Milliliter(s) SQ Q12H 03/19/2017 03/20/2017 In active Lovenox 30 mg/0.3 mL subcutaneous syringe RxNorm: 647718 0.3 Milliliter(s) SQ Q12H 03/16/2017 03/18/2017 In active clonazepam 0.5 mg ta blet RxNorm: 750944 1 Tablet(s) PO BID 03/02/2017 10/03/2018 Inactive Lovenox 30 mg/0.3 mL subcutaneous syringe RxNorm: 510692 1 injection SQ BID do NOT take the night time dose the day before surgery, or the morning dose the day of surgery 03/01/2017 03/07/2017 Inactive Lovenox 30 mg/0.3 mL subcutaneous syringe RxNorm: 495928 1 injection SQ BID 03/01/2017 02/28/2017 In active Detrol LA 4 mg capsu le,extended release RxNorm: 678717 TAKE 1 CAPSULE BY JAVON TH ONCE DAILY 02/19/2017 05/09/2017 Inactive Generic For:DETROL LA 4MG C AP 02/19/2017 2:36:00 PM hydrocodone 5 mg-humberto taminophen 325 mg tablet RxNorm: 685430 1-2 Tablet(s) PO Q6 P RN 02/04/2017 No Stop Date Active Zetia 10 mg tablet RxNorm: 903626 TAKE 1 TABLET BY MOUTH DAILY 01/25/2017 04/13/2018 Inactive 01/23/2017 9:03:48 AM omeprazole 20 mg cap sean,delayed release RxNorm: 866360 TAKE 1 CAPSULE BY JAVON TH EVERY DAY 01/25/2017 07/21/2017 Inactive Generic For:PRILOSEC 20MG 01/23/2017 9: 03:45 AM Coumadin 4 mg tablet RxNorm: 486037 TAKE 1 TABLET BY MOUTH THREE TIMES PER [place] (WEDNESDAY, WEDNESDAY AND WEDNESDAY) 01/25/2017 04/22/2017 Inactive Generic For:COUMADIN 4MG 01/23/2017 9:03:51 AM sodium bicarbonate 6 50 mg tablet RxNorm: 967951 TAKE 2 TABLETS BY JAVON TH TWICE DAILY 12/24/2016 06/21/2017 In active 12/24/2016 9:09:27 AM Lasix 20 mg tablet RxNorm: 570481 1 Tablet(s) PO daily 12/24/2016 04/22/2017 Inactive Synthroid 137 mcg ta blet RxNorm: 239625 TAKE 1 TABLET BY MOUT H ONCE DAILY 11/24/2016 05/22/2017 In active Generic For:SYNTHROID 137MCG TAB 2016 9:04:37 AM Coumadin 4 mg tablet RxNorm: 161620 TAKE 1 TABLET BY MOUTH THREE TIMES PER [place] (WEDNESDAY, WEDNESDAY AND WEDNESDAY) 11/24/2016 01/22/2017 Inactive Generic For:COUMADIN 4MG 11/24/2016 9:04:41 AM hydrocodone 5 mg-humberto taminophen 325 mg tablet RxNorm: 910299 1-2 Tablet(s) PO Q6 P RN 11/17/2016 02/03/2017 In active Carafate 1 gram tablet RxNorm: 070593 TAKE ONE TABLET BY MOUTH TWICE DAILY 10/27/2016 05/23/2017 In active Generic For:CARAFATE 1GM 10/26/2016 8:3 9:42 AM allopurinol 300 mg t ablet RxNorm: 093704 Tablet(s) TAKE 1 TABL ET BY MOUTH ONCE DAILY. 10/26/2016 04/22/2017 Inactive Lipitor 40 mg tablet RxNorm: 549032 1 Tablet(s) PO daily 09/25/2016 09/19/2017 Inactive Coumadin 4 mg tablet RxNorm: 174331 TAKE 1 TABLET BY MOUTH THREE TIMES PER [place] (WEDNESDAY, WEDNESDAY AND WEDNESDAY) 09/25/2016 11/23/2016 Inactive Generic For:COUMADIN 4MG 09/25/2016 8:55:58 AM Zetia 10 mg tablet RxNorm: 488182 1 Tablet(s) PO daily 09/25/2016 01/22/2017 Inactive gave 1 month of samples clonazepam 0.5 mg ta blet RxNorm: 173584 1 Tablet(s) PO BID 09/21/2016 10/03/2018 Inactive Lasix 20 mg tablet RxNorm: 291505 1 Tablet(s) PO daily 09/15/2016 12/23/2016 Inactive potassium chloride 2 0 mEq/15 mL oral liquid RxNorm: 713150 Milliliter(s) 30 Milliliter(s) (40mEq) PO daily 09/15/2016 01/12/2017 Inactive Lasix 20 mg tablet RxNorm: 884358 2 Tablet(s) PO daily 09/10/2016 09/12/2016 Inactive Lasix 20 mg tablet RxNorm: 130856 1 Tablet(s) PO daily 08/28/2016 08/30/2016 Inactive Lasix 20 mg tablet RxNorm: 548210 1 Tablet(s) PO daily 08/20/2016 08/22/2016 Inactive Detrol LA 4 mg capsu le,extended release RxNorm: 163243 TAKE 1 CAPSULE BY JAVON ONCE DAILY 07/27/2016 02/18/2017 Inactive Generic For:DETROL LA 4MG C AP 07/27/2016 9:08:27 AM Coumadin 4 mg tablet RxNorm: 791429 1 Tablet(s) PO 3 x week wed and sun 07/27/2016 09/24/2016 In active omeprazole 20 mg cap sean,delayed release RxNorm: 285556 Capsule(s) PO TAKE 1 CAPSULE BY MOUTH ONCE DAILY 07/27/2016 01/22/2017 Inactive venlafaxine ER 75 mg capsule,extended release 24 hr RxNorm: 213976 1 Capsule(s) PO daily 06/29/2016 06/21/2017 Inactive sodium bicarbonate 6 50 mg tablet RxNorm: 703244 TAKE 2 TABLETS BY JAVON TWICE DAILY 06/29/2016 12/23/2016 In active 06/27/2016 9:05:39 AM Coumadin 4 mg tablet RxNorm: 909772 1 Tablet(s) PO 3 x week e th and sun 06/09/2016 06/08/2016 In active Coumadin 4 mg tablet RxNorm: 253092 1 Tablet(s) PO 3 x week e thur and sun 06/09/2016 07/26/2016 In active Zetia 10 mg tablet RxNorm: 562239 1 Tablet(s) PO daily 06/09/2016 06/08/2016 Inactive gave 1 month of samples Zetia 10 mg tablet RxNorm: 027443 1 Tablet(s) PO daily 06/09/2016 09/24/2016 Inactive gave 1 month of samples Effexor 75 mg tablet RxNorm: 808836 1 Tablet(s) PO daily 06/08/2016 06/28/2016 Inactive spironolactone 25 mg tablet RxNorm: 989091 1 Tablet(s) PO daily 06/08/2016 05/23/2017 Inactive Synthroid 137 mcg ta blet RxNorm: 078851 1 Tablet(s) PO daily 05/07/2016 11/02/2016 Inactive allopurinol 300 mg t ablet RxNorm: 450612 Tablet(s) TAKE 1 TABL ET BY MOUTH ONCE DAILY. 04/28/2016 10/24/2016 Inactive clonazepam 0.5 mg ta blet RxNorm: 083213 1 Tablet(s) PO BID 04/20/2016 10/03/2018 Inactive Flonase Allergy Reli ef 50 mcg/actuation nasal spray,suspension RxNorm: 4715824 1 [place] NASAL BID 04/02/2016 No Stop Date Active Zithromax Z-Thomas 250 mg tablet RxNorm: 749363 Tablet(s) PO 04/02/2016 08/27/2016 Inactive cetirizine 10 mg tablet RxNorm: 2633517 1 Tablet(s) PO daily 04/02/2016 05/01/2016 Inactive Carafate 1 gram tablet RxNorm: 181476 Tablet(s) TAKE 1 TABLET TWICE A DAY FOR 30 DAYS 03/30/2016 10/25/2016 Inactive Generic For:CARAFATE 1GM 02/08/2015 12:3 6:39 PM Plavix 75 mg tablet RxNorm: 507905 1 Tablet(s) PO daily 03/11/2016 09/06/2016 Inactive sodium bicarbonate 6 50 mg tablet RxNorm: 633159 Tablet(s) 2 Tablet(s) PO BID 02/28/2016 06/26/2016 In active omeprazole 20 mg cap sean,delayed release RxNorm: 814636 Capsule(s) PO TAKE 1 CAPSULE BY MOUTH ONCE DAILY 01/31/2016 07/26/2016 Inactive Fish Oil 1,000 mg ca psule RxNorm: 1 Capsule(s) PO BID 01/14/2016 No Stop Date Active Synthroid 137 mcg ta blet RxNorm: 713866 1 Tablet(s) PO daily 01/14/2016 05/06/2016 Inactive Detrol LA 4 mg capsu le,extended release RxNorm: 013471 TAKE 1 CAPSULE BY JAVON TH ONCE DAILY 12/30/2015 07/26/2016 Inactive Generic For:DETROL LA 4MG C AP 12/30/2015 9:11:01 AM potassium chloride 2 0 mEq/15 mL oral liquid RxNorm: 024202 Milliliter(s) 30 Milliliter(s) (40mEq) PO daily 12/02/2015 03/30/2016 Inactive sodium bicarbonate 6 50 mg tablet RxNorm: 673500 Tablet(s) 2 Tablet(s) PO BID 10/31/2015 02/27/2016 In active Lipitor 40 mg tablet RxNorm: 354784 1 Tablet(s) PO daily 10/09/2015 09/24/2016 Inactive sodium bicarbonate 6 50 mg tablet RxNorm: 202555 2 Tablet(s) PO BID 10/01/2015 10/30/2015 Inactive allopurinol 300 mg t ablet RxNorm: 061391 TAKE 1 TABLET BY MOUT H ONCE DAILY. 10/01/2015 04/27/2016 In active Generic For:ZYLOPRIM 300 MG TABLET 09/19 9:21:15 AM clonazepam 0.5 mg ta blet RxNorm: 756834 1 Tablet(s) PO BID 09/30/2015 04/19/2016 Inactive Coumadin 5 mg tablet RxNorm: 627057 1 Tablet(s) PO daily 09/27/2015 05/31/2017 Inactive Generic For:COUMADIN 5MG TAB N O T I C E PRESCRIPTION PREVIOUSLY AUTHORIZED BY DOCTOR:BOBBY ZULETA Synthroid 125 mcg ta blet RxNorm: 414325 1 Tablet(s) PO daily 09/27/2015 09/26/2015 Inactive Synthroid 125 mcg ta blet RxNorm: 681568 1 Tablet(s) PO daily 09/27/2015 01/13/2016 Inactive Carafate 1 gram tablet RxNorm: 576746 Tablet(s) TAKE 1 TABLET TWICE A DAY FOR 30 DAYS 09/02/2015 03/29/2016 Inactive Generic For:CARAFATE 1GM 02/08/2015 12:3 6:39 PM sodium bicarbonate 6 50 mg tablet RxNorm: 449976 2 Tablet(s) PO BID 09/02/2015 09/30/2015 Inactive Prilosec 20 mg capsu le,delayed release RxNorm: 650104 TAKE 1 CAPSULE BY JAVON TH ONCE DAILY 08/02/2015 01/28/2016 Inactive Generic For:PRILOSEC 20MG 08/02/2015 10:03:09 AM N O T I C E PRESCRIPTION PREVIOUSLY AUTHORIZED BY DOCTOR:BOBBY ZULETA Zyrtec 10 mg capsule RxNorm: 1980444 1 Capsule(s) PO daily 07/15/2015 08/13/2015 Inactive Keflex 500 mg capsule RxNorm: 988954 1 Capsule(s) PO TID 07/15/2015 07/21/2015 Inactive cetirizine 10 mg cap sean RxNorm: 9564232 1 Capsule(s) PO daily 07/15/2015 08/13/2015 Inactive hydrocodone 5 mg-humberto taminophen 325 mg tablet RxNorm: 536861 1-2 Tablet(s) PO Q6 P RN 06/10/2015 11/16/2016 In active sodium bicarbonate 6 50 mg tablet RxNorm: 208584 2 Tablet(s) PO BID 06/03/2015 08/31/2015 Inactive Detrol LA 4 mg capsu le,extended release RxNorm: 471861 TAKE 1 CAPSULE BY JAVON TH ONCE DAILY 06/03/2015 12/29/2015 Inactive Generic For:DETROL LA 4MG C AP N O T I C E PRESCRIPTION PREVIOUSLY AUTHORIZED BY DOCTOR:BOBBY ZULETA atenolol 50 mg tablet RxNorm: 043029 1 Tablet(s) PO daily TAKE 1 TABLET BY MO COH DAILY 05/07/2015 08/23/2017 Inactive Generic For:TENORMIN 50MG 05/04/2015 9:07:22 AM spironolactone 25 mg tablet RxNorm: 444817 1 Tablet(s) PO daily 05/06/2015 06/07/2016 Inactive venlafaxine ER 75 mg capsule,extended release 24 hr RxNorm: 423849 1 Capsule(s) PO daily 05/04/2015 06/28/2016 Inactive atenolol 50 mg tablet RxNorm: 777864 TAKE 1 TABLET BY MOUTH DAILY 05/04/2015 05/06/2015 Inactive Generic For:TENORMIN 50MG 05/04/2015 9: 07:22 AM Synthroid 150 mcg ta blet RxNorm: 364297 TAKE 1 TABLET BY MOUT H ONCE DAILY. 04/05/2015 09/26/2015 In active Generic For:SYNTHROID 150MCG TAB 2014 4:45:40 PM N O T I C E PRESCRIPTION PREVIOUSLY AUTHORIZED BY DOCTOR:BOBBY ZULETA Effexor 75 mg tablet RxNorm: 552271 1 Tablet(s) PO daily 04/05/2015 07/03/2015 Inactive Coumadin 5 mg tablet RxNorm: 220413 TAKE 1 AND 1/2 TABLETS BY MOUTH ONCE MYRANDA LY 04/04/2015 09/26/2015 In active Generic For:COUMADIN 5MG TAB N O T I C E PRESCRIPTION PREVIOUSLY AUTHORIZED BY DOCTOR:BOBBY ZULETA clonazepam 0.5 mg ta blet RxNorm: 797750 1 Tablet(s) PO BID 03/13/2015 11/05/2015 Inactive sodium bicarbonate 6 50 mg tablet RxNorm: 787611 2 Tablet(s) PO BID 03/08/2015 06/02/2015 Inactive allopurinol 300 mg t ablet RxNorm: 113153 TAKE 1 TABLET BY MOUT H ONCE DAILY. 03/05/2015 09/30/2015 In active N O T I C E PRESCRIPTION PREVIOUSLY A UTHORIZED BY DOCTOR:BOBBY ZULETA Plavix 75 mg tablet RxNorm: 378863 1 Tablet(s) PO daily 02/12/2015 09/09/2015 Inactive clonazepam 0.5 mg ta blet RxNorm: 755487 1 Tablet(s) PO BID 02/11/2015 03/11/2015 Inactive Carafate 1 gram tablet RxNorm: 208042 TAKE 1 TABLET TWICE A DAY FOR 30 DAYS 02/08/2015 02/07/2015 In active Generic For:CARAFATE 1GM 02/08/2015 12:3 6:39 PM Carafate 1 gram tablet RxNorm: 229208 Tablet(s) TAKE 1 TABLET TWICE A DAY FOR 30 DAYS 02/08/2015 09/01/2015 Inactive Generic For:CARAFATE 1GM 02/08/2015 12:3 6:39 PM potassium chloride 2 0 mEq/15 mL oral liquid RxNorm: 118033 30 Milliliter(s) (40m Eq) PO daily 02/05/2015 12/01/2015 Inactive atenolol 50 mg tablet RxNorm: 490128 1 Tablet(s) PO daily 02/04/2015 05/03/2015 Inactive [SAVINGS FOR NON-COVERED DRUGS -- BIN: 5005, PCN: [id number], Group: XXXXX, ID# [id number], Questions: . THIS IS NOT INSURANCE.] potassium chloride 2 0 mEq/15 mL oral liquid RxNorm: 070644 30 Milliliter(s) (40m Eq) PO daily 01/08/2015 02/04/2015 Inactive potassium chloride 2 0 mEq/15 mL oral liquid RxNorm: 683880 30 Milliliter(s) (40m Eq) PO daily 12/07/2014 01/07/2015 Inactive atenolol 50 mg tablet RxNorm: 313335 1 Tablet(s) PO daily 11/09/2014 11/08/2014 Inactive atenolol 50 mg tablet RxNorm: 469367 1 Tablet(s) PO daily 11/09/2014 02/03/2015 Inactive [SAVINGS FOR NON-COVERED DRUGS -- BIN: 3585, PCN: [email or web address], Group: XXXXX, ID# [id number], Questions: . THIS IS NOT INSURANCE.] Voltaren 1 % topical gel RxNorm: 806645 TOP No St art Date Active verapamil ER (HS) 24 0 mg tablet,extended release 24 hr RxNorm: 383965 1 Tablet(s) PO daily No Start Date Active aspirin 81 mg tablet RxNorm: 703567 1 Tablet(s) PO daily No Start Date Active Zofran 4 mg tablet RxNorm: 267840 1 Tablet(s) PO PRN No Start Date Active B12 1000 mcg RxNorm: 1 Tablet(s) PO daily No Start Date Active magnesium oxide 400 mg capsule RxNorm: 227728 2 Capsule(s) PO BID No Start Date Active Synthroid 150 mcg ta blet RxNorm: 292384 1 Tablet(s) PO daily No Start Date 04/04/2015 Inactive Coumadin 5 mg tablet RxNorm: 786662 1 Tablet(s) PO daily No Start Date 04/03/2015 Inactive cranberry 1,000 mg c apsule RxNorm: 400732 1 Capsule(s) PO daily No Start Date 04/13/2018 Inactive allopurinol 300 mg t ablet RxNorm: 607239 1 Tablet(s) PO daily No Start Date 03/04/2015 Inactive Prilosec 20 mg capsu le,delayed release RxNorm: 611308 1 Capsule(s) PO PRN No Start Date 08/01/2015 Inactive potassium chloride 2 0 mEq/15 mL oral liquid RxNorm: 809539 30 Milliliter(s) (40m Eq) PO daily No Start Date 12/06/2014 Inactive atenolol 50 mg tablet RxNorm: 748991 1 Tablet(s) PO daily No Start Date 08/29/2017 Inactive Lipitor 40 mg tablet RxNorm: 714273 1 Tablet(s) PO daily No Start Date 09/19/2017 Inactive Effexor 75 mg tablet RxNorm: 253498 1 Tablet(s) PO daily No Start Date 04/04/2015 Inactive Carafate 1 gram tablet RxNorm: 341833 1 Tablet(s) PO BID No Start Date 02/07/2015 Inactive clonazepam 0.5 mg ta blet RxNorm: 561929 1 Tablet(s) PO BID No Start Date 02/10/2015 Inactive Plavix 75 mg tablet RxNorm: 758881 1 Tablet(s) PO daily No Start Date 02/11/2015 Inactive sodium bicarbonate 6 50 mg tablet RxNorm: 762440 2 Tablet(s) PO BID No Start Date 09/01/2015 Inactive Lovenox 30 mg/0.3 mL subcutaneous syringe RxNorm: 793935 0.3 Milliliter(s) SQ Q12H No Start Date 03/15/2017 Inactive Fish Oil 1,000 mg ca psule RxNorm: 1 Capsule(s) PO daily No Start Date 01/13/2016 Inactive Detrol LA 4 mg capsu le,extended release RxNorm: 566035 1 Capsule(s) PO daily No Start Date 06/02/2015 Inactive Medication Administered Medication Codes Instruc tions Start Date Status Kenalog 40 mg/mL suspension for injection RxNorm: 9135495 Milliliter 09/02/2018 No longer Active Immunizations Vaccine [...] fatigue ICD-10: R53.83 ICD-9: 780.79 08/20/2016 Other salvage determiner (current) drug therapy ICD-10: Z79.899 ICD-9: V58.69 [...] Code Item Item Code Result Date Pt Vby4709 PT 26.3 seconds 10/13/2018 Pt Oue5346 INR 2.5 10/13/2018 Pt Uwa5971 Low Intensity - 1.5-2.0 10/13/2018 Pt Ave1417 Mod intensity - 2.0-3.0 10/13/2018 Pt Lma1447 Hi intensity - 3.0-4.0 10/13/2018 Lipid Ord30 CHOL 180 mg/dL 10/07/2018 Lipid Ord30 HDL 74.0 mg/dl 10/07/2018 Lipid Ord30 TRIG 111 mg/dL 10/07/2018 Lipid Ord30 LDL 84 mg/dL 10/07/2018 Lipid Ord30 C/HDL 2.4 Ratio 10/07/2018 Pt Hka9970 PT 38.1 seconds 10/07/2018 Pt Kft4754 INR 3.9 10/07/2018 Pt Flg7289 Low Intensity - 1.5-2.0 10/07/2018 Pt Afd6313 Mod intensity - 2.0-3.0 10/07/2018 Pt Bus3942 Hi intensity - 3.0-4.0 10/07/2018 Tsh Ord6 TSH (3rd IS) 0.43 uIU/mL 09/02/2018 Comp Metabolic Mqg279 NA 136 mEq/L 09/02/2018 Comp Metabolic Pix495 K 4.1 mEq/L 09/02/2018 Comp Metabolic Vjp392 CL 103 mEq/L 09/02/2018 Comp Metabolic Jyx150 CO2 20.0 mEq/L 09/02/2018 Comp Metabolic Tny127 AN ION GAP 17 09/02/2018 Comp Metabolic Zpm280 GL UCOSE 124 mg/dL 09/02/2018 Comp Metabolic Khd927 Cr eat 1.0 mg/dL 09/02/2018 Comp Metabolic Vkj193 eG FR 57 ml/min/1.73m2 09/02 Comp Metabolic Qno562 BUN 24 mg/dL 09/02/2018 Comp Metabolic Wyp437 B/ C Ratio 23.8 Ratio 09/02/2018 Comp Metabolic Ypd975 CA LCIUM 9.5 mg/dL 09/02/2018 Comp Metabolic Uui296 AL K PHOS 64 U/L 09/02/2018 Comp Metabolic Uln682 T(SGOT) 24 U/L 09/02/2018 Comp Metabolic Gov408 AL T(SGPT) 23 U/L 09/02/2018 Comp Metabolic Yom557 BI LI T 0.5 mg/dL 09/02/2018 Comp Metabolic Klt976 AL BUMIN 4.2 g/dL 09/02/2018 Comp Metabolic Agx769 TP RO 7.4 g/dL 09/02/2018 Comp Metabolic Hlt776 GL OB 3.2 g/dL 09/02/2018 Comp Metabolic Zbt101 A/ G Ratio 1.3 Ratio 09/02/2018 Comp Metabolic Rmo213 Os mo 277 mOsmo 09/02/2018 Pt Iim5289 PT 40.6 seconds 09/02/2018 Pt Isv2027 INR 4.2 09/02/2018 Pt Wup7660 Low Intensity - 1.5-2.0 09/02/2018 Pt Uld3189 Mod intensity - 2.0-3.0 09/02/2018 Pt Kxi8444 Hi intensity - 3.0-4.0 09/02/2018 Free T4 Tkq632 FREE T4 1.51 ng/dL 09/02/2018 Magnesium Ord90 Mag 1.8 mg/dL 09/02/2018 Pt Dfp2392 PT 29.2 seconds 08/05/2018 Pt Vcd1447 INR 2.8 08/05/2018 Pt Ggn5404 Low Intensity - 1.5-2.0 08/05/2018 Pt Afa1633 Mod intensity - 2.0-3.0 08/05/2018 Pt Lhe8622 Hi intensity - 3.0-4.0 08/05/2018 Pt Gpx7092 PT 30.2 seconds 07/25/2018 Pt Oue4797 INR 2.9 07/25/2018 Pt Zsm8058 Low Intensity - 1.5-2.0 07/25/2018 Pt Qtw2354 Mod intensity - 2.0-3.0 07/25/2018 Pt Atr1843 Hi intensity - 3.0-4.0 07/25/2018 Pt Hyf7541 PT 25.2 seconds 07/19/2018 Pt Jde7867 INR 2.3 07/19/2018 Pt Ath2673 Low Intensity - 1.5-2.0 07/19/2018 Pt Pam2055 Mod intensity - 2.0-3.0 07/19/2018 Pt Vgs9786 Hi intensity - 3.0-4.0 07/19/2018 Pt Rtc2238 PT 17.4 seconds 07/15/2018 Pt Xeu6576 INR 1.5 07/15/2018 Pt Jpt1645 Low Intensity - 1.5-2.0 07/15/2018 Pt Nmu3181 Mod intensity - 2.0-3.0 07/15/2018 Pt Cwa3197 Hi intensity - 3.0-4.0 07/15/2018 Pt Zhr7892 PT 17.8 seconds 07/08/2018 Pt Pcm3455 INR 1.5 07/08/2018 Pt Nwr6538 Low Intensity - 1.5-2.0 07/08/2018 Pt Oqe5432 Mod intensity - 2.0-3.0 07/08/2018 Pt Hbv6666 Hi intensity - 3.0-4.0 07/08/2018 Pt Ias0163 PT 19.2 seconds 07/01/2018 Pt Ywm6689 INR 1.7 07/01/2018 Pt Hcp9925 Low Intensity - 1.5-2.0 07/01/2018 Pt Tbm9301 Mod intensity - 2.0-3.0 07/01/2018 Pt Fzf6517 Hi intensity - 3.0-4.0 07/01/2018 Pt Gxt5577 PT 17.4 seconds 06/23/2018 Pt Gyb3405 INR 1.5 06/23/2018 Pt Vyo8659 Low Intensity - 1.5-2.0 06/23/2018 Pt Emz1816 Mod intensity - 2.0-3.0 06/23/2018 Pt Rmt2203 Hi intensity - 3.0-4.0 06/23/2018 Pt Kwa5102 PT 18.4 seconds 06/17/2018 Pt Knq7006 INR 1.6 06/17/2018 Pt Nfn1188 Low Intensity - 1.5-2.0 06/17/2018 Pt Iep0627 Mod intensity - 2.0-3.0 06/17/2018 Pt Spk9682 Hi intensity - 3.0-4.0 06/17/2018 Sed Rate [...] 30.4 pg 06/08/2018 Cbc With Differential Ord2 [place]% 9.4 % 06/08/2018 Cbc With Differential Ord2 [...] 1.20 K/ul 06/08/2018 Cbc With Differential Ord2 [place] ABS# 0.5 K/ul 06/08/2018 Cbc With Differential Ord2 Eos ABS# 0.1 K/ul 06/08/2018 Cbc With Differential Ord2 Baso ABS# 0.1 K/ul 06/08/2018 C-Reactive Protein Qnt Crqnt CRP 0.1 mg/dl 06/08/2018 Pt Alb2448 PT 17.6 seconds 06/08/2018 Pt One0774 INR 1.5 06/08/2018 Pt Kzb3720 Low Intensity - 1.5-2.0 06/08/2018 Pt Ean0070 Mod intensity - 2.0-3.0 06/08/2018 Pt Glj3276 Hi intensity - 3.0-4.0 06/08/2018 Pt Wnr0678 PT 16.8 seconds 05/10/2018 Pt Kwm0789 INR 1.4 05/10/2018 Pt Cdv2788 Low Intensity - 1.5-2.0 05/10/2018 Pt Cey6896 Mod intensity - 2.0-3.0 05/10/2018 Pt Ecl6443 Hi intensity - 3.0-4.0 05/10/2018 Pt Fcw6125 PT 16.7 seconds 05/04/2018 Pt Xfy6343 INR 1.4 05/04/2018 Pt Xnj4103 Low Intensity - 1.5-2.0 05/04/2018 Pt Nle5291 Mod intensity - 2.0-3.0 05/04/2018 Pt Pul5989 Hi intensity - 3.0-4.0 05/04/2018 Free T4 Tot084 FREE T4 1.09 ng/dL 04/14/2018 Tsh Ord6 TSH (3rd IS) 2.36 uIU/mL 04/14/2018 Pt Bst6178 PT 20.3 seconds 04/14/2018 Pt Deh2367 INR 1.8 04/14/2018 Pt Uan0932 Low Intensity - 1.5-2.0 04/14/2018 Pt Ynp7835 Mod intensity - 2.0-3.0 04/14/2018 Pt Xzt5168 Hi intensity - 3.0-4.0 04/14/2018 Lipid Ord30 CHOL 149 mg/dL 04/14/2018 Lipid Ord30 HDL 49.0 mg/dl 04/14/2018 Lipid Ord30 TRIG 161 mg/dL 04/14/2018 Lipid Ord30 LDL 68 mg/dL 04/14/2018 Lipid Ord30 C/HDL 3.0 Ratio 04/14/2018 %Hba1C Lqb177 % HbA1c 14100-0 5.9 % 04/14/2018 %Hba1C Scv264 Gluc Ave 123 mg/dL 04/14/2018 Comp Metabolic Ikp465 NA 140 mEq/L 04/14/2018 Comp Metabolic Nuw906 K 4.1 mEq/L 04/14/2018 Comp Metabolic Try769 CL 105 mEq/L 04/14/2018 Comp Metabolic Gfe282 CO2 28.0 mEq/L 04/14/2018 Comp Metabolic Jyn818 AN ION GAP 11 04/14/2018 Comp Metabolic Dnh591 GL UCOSE 112 mg/dL 04/14/2018 Comp Metabolic Poz485 Cr eat 1.0 mg/dL 04/14/2018 Comp Metabolic Hvs011 eG FR 58 ml/min/1.73m2 04/14 Comp Metabolic Bec814 BUN 20 mg/dL 04/14/2018 Comp Metabolic Ygk829 B/ C Ratio 20.2 Ratio 04/14/2018 Comp Metabolic Tuh386 CA LCIUM 10.0 mg/dL 04/14/2018 Comp Metabolic Gim477 AL K PHOS 51 U/L 04/14/2018 Comp Metabolic Hmi121 T(SGOT) 24 U/L 04/14/2018 Comp Metabolic Mre304 AL T(SGPT) 21 U/L 04/14/2018 Comp Metabolic Qvr683 BI LI T 0.8 mg/dL 04/14/2018 Comp Metabolic Uyn737 AL BUMIN 4.2 g/dL 04/14/2018 Comp Metabolic Mef399 TP RO 7.1 g/dL 04/14/2018 Comp Metabolic Afm384 GL OB 2.9 g/dL 04/14/2018 Comp Metabolic Ori108 A/ G Ratio 1.5 Ratio 04/14/2018 Comp Metabolic Ibj895 Os mo 283 mOsmo 04/14/2018 Cbc With [...] 30.7 pg 04/14/2018 Cbc With Differential Ord2 [place]% 10.6 % 04/14/2018 Cbc With Differential Ord2 [...] 1.18 K/ul 04/14/2018 Cbc With Differential Ord2 [place] ABS# 0.5 K/ul 04/14/2018 Cbc With Differential Ord2 Eos ABS# 0.2 K/ul 04/14/2018 Cbc With Differential Ord2 Baso ABS# 0.1 K/ul 04/14/2018 Pt Ivz6454 PT 29.3 seconds 02/11/2018 Pt Ewg0548 INR 2.8 02/11/2018 Pt Qth5602 Low Intensity - 1.5-2.0 02/11/2018 Pt Hsb3106 Mod intensity - 2.0-3.0 02/11/2018 Pt Wdc8729 Hi intensity - 3.0-4.0 02/11/2018 Comp Metabolic Nky494 NA 141 mEq/L 01/05/2018 Comp Metabolic Dhw126 K 3.7 mEq/L 01/05/2018 Comp Metabolic Lbi737 CL 102 mEq/L 01/05/2018 Comp Metabolic Edt455 CO2 29.0 mEq/L 01/05/2018 Comp Metabolic Ggi443 AN ION GAP 14 01/05/2018 Comp Metabolic Pkj683 GL UCOSE 136 mg/dL 01/05/2018 Comp Metabolic Vnr476 Cr eat 1.0 mg/dL 01/05/2018 Comp Metabolic Hgc945 eG FR 61 ml/min/1.73m2 01/05 Comp Metabolic Ngb651 BUN 22 mg/dL 01/05/2018 Comp Metabolic Qih499 B/ C Ratio 22.9 Ratio 01/05/2018 Comp Metabolic Ytr100 CA LCIUM 9.7 mg/dL 01/05/2018 Comp Metabolic Atr556 AL K PHOS 57 U/L 01/05/2018 Comp Metabolic Jns049 T(SGOT) 21 U/L 01/05/2018 Comp Metabolic Vgv407 AL T(SGPT) 19 U/L 01/05/2018 Comp Metabolic Dnd453 BI LI T 0.9 mg/dL 01/05/2018 Comp Metabolic Cwm065 AL BUMIN 4.1 g/dL 01/05/2018 Comp Metabolic Pzk152 TP RO 7.1 g/dL 01/05/2018 Comp Metabolic Hio075 GL OB 3.0 g/dL 01/05/2018 Comp Metabolic Arc298 A/ G Ratio 1.4 Ratio 01/05/2018 Comp Metabolic Wky463 Os mo 287 mOsmo 01/05/2018 Free T4 Esr027 FREE T4 1.05 ng/dL 01/05/2018 %Hba1C Uyy242 % HbA1c 42120-8 6.0 % 01/05/2018 %Hba1C Jmn004 Gluc Ave 126 mg/dL 01/05/2018 Cbc With [...] 30.6 pg 01/05/2018 Cbc With Differential Ord2 [place]% 10.5 % 01/05/2018 Cbc With Differential Ord2 [...] 1.27 K/ul 01/05/2018 Cbc With Differential Ord2 [place] ABS# 0.5 K/ul 01/05/2018 Cbc With Differential Ord2 Eos ABS# 0.2 K/ul 01/05/2018 Cbc With Differential Ord2 Baso ABS# 0.1 K/ul 01/05/2018 Pt Dwk4334 PT 20.7 seconds 01/05/2018 Pt Erv9984 INR 1.8 01/05/2018 Pt Ump0537 Low Intensity - 1.5-2.0 01/05/2018 Pt Vgs2713 Mod intensity - 2.0-3.0 01/05/2018 Pt Lkv7428 Hi intensity - 3.0-4.0 01/05/2018 Tsh Ord6 TSH (3rd IS) 2.34 uIU/mL 01/05/2018 Lipid Ord30 CHOL 156 mg/dL 01/05/2018 Lipid Ord30 HDL 48.0 mg/dl 01/05/2018 Lipid Ord30 TRIG 207 mg/dL 01/05/2018 Lipid Ord30 LDL 67 mg/dL 01/05/2018 Lipid Ord30 C/HDL 3.3 Ratio 01/05/2018 Pt Sps6174 PT 28.3 seconds 11/26/2017 Pt Ezt2528 INR 2.6 11/26/2017 Pt Yla2980 Low Intensity - 1.5-2.0 11/26/2017 Pt Oku2541 Mod intensity - 2.0-3.0 11/26/2017 Pt Npy1927 Hi intensity - 3.0-4.0 11/26/2017 Pt Ceq9746 PT 36.5 seconds 11/19/2017 Pt Pvu3436 INR 3.6 11/19/2017 Pt Vht9804 Low Intensity - 1.5-2.0 11/19/2017 Pt Gbl3173 Mod intensity - 2.0-3.0 11/19/2017 Pt Lhz4981 Hi intensity - 3.0-4.0 11/19/2017 Pt Vmm3210 PT 22.9 seconds 10/15/2017 Pt Ogt7292 INR 2.0 10/15/2017 Pt Tbj1725 Low Intensity - 1.5-2.0 10/15/2017 Pt Ira3453 Mod intensity - 2.0-3.0 10/15/2017 Pt Jci8951 Hi intensity - 3.0-4.0 10/15/2017 Pt Wkg3194 PT 25.9 seconds 10/01/2017 Pt Bjr5710 INR 2.4 10/01/2017 Pt Elp8125 Low Intensity - 1.5-2.0 10/01/2017 Pt Qwu1899 Mod intensity - 2.0-3.0 10/01/2017 Pt Cwu2483 Hi intensity - 3.0-4.0 10/01/2017 Pt Uei3485 PT 20.6 seconds 09/24/2017 Pt Fka7444 INR 1.8 09/24/2017 Pt Smn7421 Low Intensity - 1.5-2.0 09/24/2017 Pt Jhg4780 Mod intensity - 2.0-3.0 09/24/2017 Pt Zcg6813 Hi intensity - 3.0-4.0 09/24/2017 Pt Wxi2632 PT 21.0 seconds 09/15/2017 Pt Nym9302 INR 1.8 09/15/2017 Pt Jfh2653 Low Intensity - 1.5-2.0 09/15/2017 Pt Qeg1618 Mod intensity - 2.0-3.0 09/15/2017 Pt Gmk3589 Hi intensity - 3.0-4.0 09/15/2017 Pt Ruo6323 PT 19.0 seconds 09/03/2017 Pt Wqm2674 INR 1.6 09/03/2017 Pt Jqo1822 Low Intensity - 1.5-2.0 09/03/2017 Pt Tml0900 Mod intensity - 2.0-3.0 09/03/2017 Pt Wnl8516 Hi intensity - 3.0-4.0 09/03/2017 Pt Zgh4403 PT 17.6 seconds 08/23/2017 Pt Bvm2839 INR 1.5 08/23/2017 Pt Xdn7098 Low Intensity - 1.5-2.0 08/23/2017 Pt Urd8356 Mod intensity - 2.0-3.0 08/23/2017 Pt Fjm7401 Hi intensity - 3.0-4.0 08/23/2017 Pt Kku5999 PT 12.7 seconds 08/20/2017 Pt Fkr3304 INR 1.0 08/20/2017 Pt Dal5595 Low Intensity - 1.5-2.0 08/20/2017 Pt Lnr4357 Mod intensity - 2.0-3.0 08/20/2017 Pt Arv9523 Hi intensity - 3.0-4.0 08/20/2017 Pt Asb2348 PT 12.9 seconds 08/17/2017 Pt Ngk5267 INR 1.0 08/17/2017 Pt Kqh7367 Low Intensity - 1.5-2.0 08/17/2017 Pt Dky5956 Mod intensity - 2.0-3.0 08/17/2017 Pt Ucn5007 Hi intensity - 3.0-4.0 08/17/2017 Pt Vpu5676 PT 18.5 seconds 08/10/2017 Pt Fsg5223 INR 1.6 08/10/2017 Pt Lwd0572 Low Intensity - 1.5-2.0 08/10/2017 Pt Edu1929 Mod intensity - 2.0-3.0 08/10/2017 Pt Vrj4790 Hi intensity - 3.0-4.0 08/10/2017 Tsh Ord6 [...] 29.3 pg 05/27/2017 Cbc With Differential Ord2 [place]% 8.1 % 05/27/2017 Cbc With Differential Ord2 [...] 1.11 K/ul 05/27/2017 Cbc With Differential Ord2 [place] ABS# 0.6 K/ul 05/27/2017 Cbc With Differential Ord2 Eos ABS# 0.2 K/ul 05/27/2017 Cbc With Differential Ord2 Baso ABS# 0.1 K/ul 05/27/2017 Pt Lwa2582 PT 28.2 seconds 05/27/2017 Pt Zml2303 INR 2.6 05/27/2017 Pt Ute7207 Low Intensity - 1.5-2.0 05/27/2017 Pt Jlr4913 Mod intensity - 2.0-3.0 05/27/2017 Pt Lxr3124 Hi intensity - 3.0-4.0 05/27/2017 Lipid Ord30 CHOL 167 mg/dL 05/27/2017 Lipid Ord30 HDL 49.0 mg/dl 05/27/2017 Lipid Ord30 TRIG 347 mg/dL 05/27/2017 Lipid Ord30 LDL 49 mg/dL 05/27/2017 Lipid Ord30 C/HDL 3.4 Ratio 05/27/2017 Magnesium Ord90 Mag 1.4 mg/dL 05/27/2017 %Hba1C Bns077 % HbA1c 78222-0 5.9 % 05/27/2017 %Hba1C Bbj477 Gluc Ave 123 mg/dL 05/27/2017 Comp Metabolic Gal357 NA 138 mEq/L 05/27/2017 Comp Metabolic Dyz223 K 4.1 mEq/L 05/27/2017 Comp Metabolic Txv325 CL 101 mEq/L 05/27/2017 Comp Metabolic Rmp703 CO2 31.0 mEq/L 05/27/2017 Comp Metabolic Ycl675 AN ION GAP 10 05/27/2017 Comp Metabolic Wtm676 GL UCOSE 117 mg/dL 05/27/2017 Comp Metabolic Mrx933 Cr eat 0.9 mg/dL 05/27/2017 Comp Metabolic Bhu781 eG FR 62 ml/min/1.73m2 05/27 Comp Metabolic Nir052 BUN 25 mg/dL 05/27/2017 Comp Metabolic Oce242 B/ C Ratio 26.6 Ratio 05/27/2017 Comp Metabolic Hzm515 CA LCIUM 9.5 mg/dL 05/27/2017 Comp Metabolic Ymf819 AL K PHOS 73 U/L 05/27/2017 Comp Metabolic Rsc589 T(SGOT) 18 U/L 05/27/2017 Comp Metabolic Ykv112 AL T(SGPT) 12 U/L 05/27/2017 Comp Metabolic Kbl662 BI LI T 0.5 mg/dL 05/27/2017 Comp Metabolic Ofp348 AL BUMIN 4.1 g/dL 05/27/2017 Comp Metabolic Ixp305 TP RO 7.1 g/dL 05/27/2017 Comp Metabolic Luq354 GL OB 3.0 g/dL 05/27/2017 Comp Metabolic Dkf854 A/ G Ratio 1.3 Ratio 05/27/2017 Comp Metabolic Beb226 Os mo 281 mOsmo 05/27/2017 Free T4 Bof050 FREE T4 0.91 ng/dL 05/27/2017 Pt Xnv2655 PT 29.2 seconds 04/16/2017 Pt Ehr8810 INR 2.7 04/16/2017 Pt Dim4772 Low Intensity - 1.5-2.0 04/16/2017 Pt Lpg4149 Mod intensity - 2.0-3.0 04/16/2017 Pt Qpq9561 Hi intensity - 3.0-4.0 04/16/2017 Pt Nvu4251 PT 30.7 seconds 03/31/2017 Pt Pzy7775 INR 2.9 03/31/2017 Pt Tvc1683 Low Intensity - 1.5-2.0 03/31/2017 Pt Eoc3739 Mod intensity - 2.0-3.0 03/31/2017 Pt Mja7319 Hi intensity - 3.0-4.0 03/31/2017 Pt Pqq9381 PT 21.3 seconds 03/26/2017 Pt Lsg1878 INR 1.9 03/26/2017 Pt Jvd3720 Low Intensity - 1.5-2.0 03/26/2017 Pt Ebw4238 Mod intensity - 2.0-3.0 03/26/2017 Pt Tvq9387 Hi intensity - 3.0-4.0 03/26/2017 Pt Bkk1958 PT 19.8 seconds 03/22/2017 Pt Baa5895 INR 1.7 03/22/2017 Pt Idv4854 Low Intensity - 1.5-2.0 03/22/2017 Pt Bjq4221 Mod intensity - 2.0-3.0 03/22/2017 Pt Nyr2062 Hi intensity - 3.0-4.0 03/22/2017 Pt Bcu1316 PT 15.6 seconds 03/19/2017 Pt Vii7978 INR 1.3 03/19/2017 Pt Srg5905 Low Intensity - 1.5-2.0 03/19/2017 Pt Rbf1345 Mod intensity - 2.0-3.0 03/19/2017 Pt Eqw2309 Hi intensity - 3.0-4.0 03/19/2017 Pt Xkw4399 PT 13.7 seconds 03/15/2017 Pt Asb9473 INR 1.1 03/15/2017 Pt Dkl2649 Low Intensity - 1.5-2.0 03/15/2017 Pt Smy3391 Mod intensity - 2.0-3.0 03/15/2017 Pt Wgg9010 Hi intensity - 3.0-4.0 03/15/2017 Pt Frl4919 PT 25.8 seconds 01/28/2017 Pt Kda9275 INR 2.4 01/28/2017 Pt Pfk1290 Low Intensity - 1.5-2.0 01/28/2017 Pt Ukp7551 Mod intensity - 2.0-3.0 01/28/2017 Pt Ufn8711 Hi intensity - 3.0-4.0 01/28/2017 %Hba1C Jdm440 % HbA1c 97281-5 6.4 % 10/23/2016 %Hba1C Xnt241 Gluc Ave 137 mg/dL 10/23/2016 Comp Metabolic Jnd414 NA 138 mEq/L 10/23/2016 Comp Metabolic Ohr280 K 3.4 mEq/L 10/23/2016 Comp Metabolic Gem082 CL 100 mEq/L 10/23/2016 Comp Metabolic Ues967 CO2 30.0 mEq/L 10/23/2016 Comp Metabolic Tec323 AN ION GAP 11 10/23/2016 Comp Metabolic Wji300 GL UCOSE 139 mg/dL 10/23/2016 Comp Metabolic Wgj194 Cr eat 0.9 mg/dL 10/23/2016 Comp Metabolic Wls346 eG FR 62 ml/min/1.73m2 10/23 Comp Metabolic Dpp310 BUN 22 mg/dL 10/23/2016 Comp Metabolic Nau379 B/ C Ratio 23.4 Ratio 10/23/2016 Comp Metabolic Fbu240 CA LCIUM 8.7 mg/dL 10/23/2016 Comp Metabolic Fdb231 AL K PHOS 66 U/L 10/23/2016 Comp Metabolic Qqm784 T(SGOT) 20 U/L 10/23/2016 Comp Metabolic Yka806 AL T(SGPT) 10 U/L 10/23/2016 Comp Metabolic Vpo283 BI LI T 0.5 mg/dL 10/23/2016 Comp Metabolic Dbv279 AL BUMIN 3.5 g/dL 10/23/2016 Comp Metabolic Mkb714 TP RO 6.3 g/dL 10/23/2016 Comp Metabolic Dbu114 GL OB 2.8 g/dL 10/23/2016 Comp Metabolic Lxq771 A/ G Ratio 1.3 Ratio 10/23/2016 Comp Metabolic Lzf646 Os mo 281 mOsmo 10/23/2016 Pt Tei4653 PT 26.8 seconds 10/23/2016 Pt Vkf4666 INR 2.7 10/23/2016 Pt Wox0171 Low Intensity - 1.5-2.0 10/23/2016 Pt Xuz7742 Mod intensity - 2.0-3.0 10/23/2016 Pt Coq7355 Hi intensity - 3.0-4.0 10/23/2016 Pt Mgv0158 PT 28.3 seconds 09/25/2016 Pt Vbm8703 INR 2.8 09/25/2016 Pt Cuq0973 Low Intensity - 1.5-2.0 09/25/2016 Pt Hzu0310 Mod intensity - 2.0-3.0 09/25/2016 Pt Dhf3665 Hi intensity - 3.0-4.0 09/25/2016 Metabolic Ord15 [...] Metabolic Ord15 CALCIUM 8.8 mg/dL 09/25/2016 Pt Vvr0214 PT 30.6 seconds 09/11/2016 Pt Uld3340 INR 3.2 09/11/2016 Pt Elv7072 Low Intensity - 1.5-2.0 09/11/2016 Pt Mol6242 Mod intensity - 2.0-3.0 09/11/2016 Pt Yyw8086 Hi intensity - 3.0-4.0 09/11/2016 Comp Metabolic Pef334 NA 138 mEq/L 09/11/2016 Comp Metabolic Php956 K 4.4 mEq/L 09/11/2016 Comp Metabolic Puo069 CL 103 mEq/L 09/11/2016 Comp Metabolic Geo520 CO2 31.0 mEq/L 09/11/2016 Comp Metabolic Qhz749 AN ION GAP 8 09/11/2016 Comp Metabolic Ucu882 GL UCOSE 146 mg/dL 09/11/2016 Comp Metabolic Iev003 Cr eat 1.0 mg/dL 09/11/2016 Comp Metabolic Mer658 eG FR 60 ml/min/1.73m2 09/11 Comp Metabolic Tki750 BUN 16 mg/dL 09/11/2016 Comp Metabolic Mfp635 B/ C Ratio 16.5 Ratio 09/11/2016 Comp Metabolic Nrs747 CA LCIUM 8.7 mg/dL 09/11/2016 Comp Metabolic Ucv679 AL K PHOS 52 U/L 09/11/2016 Comp Metabolic Uva461 T(SGOT) 19 U/L 09/11/2016 Comp Metabolic Xmf629 AL T(SGPT) 11 U/L 09/11/2016 Comp Metabolic Azm213 BI LI T 0.7 mg/dL 09/11/2016 Comp Metabolic Ywz717 AL BUMIN 3.3 g/dL 09/11/2016 Comp Metabolic Frf933 TP RO 5.8 g/dL 09/11/2016 Comp Metabolic Bxv485 GL OB 2.5 g/dL 09/11/2016 Comp Metabolic Grc743 A/ G Ratio 1.3 Ratio 09/11/2016 Comp Metabolic Ndl906 Os mo 280 mOsmo 09/11/2016 C-Reactive Protein Qnt Crqnt CRP 0.1 mg/dl 08/21/2016 Comp Metabolic Jtk902 NA 139 mEq/L 08/21/2016 Comp Metabolic Hfg878 K 4.1 mEq/L 08/21/2016 Comp Metabolic Skk359 CL 102 mEq/L 08/21/2016 Comp Metabolic Lwt005 CO2 30.0 mEq/L 08/21/2016 Comp Metabolic Kpk997 AN ION GAP 11 08/21/2016 Comp Metabolic Slz212 GL UCOSE 148 mg/dL 08/21/2016 Comp Metabolic Ewy780 Cr eat 1.0 mg/dL 08/21/2016 Comp Metabolic Vie827 eG FR 55 ml/min/1.73m2 08/21 Comp Metabolic Oxq755 BUN 21 mg/dL 08/21/2016 Comp Metabolic Kgh779 B/ C Ratio 20.2 Ratio 08/21/2016 Comp Metabolic Qok071 CA LCIUM 9.4 mg/dL 08/21/2016 Comp Metabolic Qwi764 AL K PHOS 63 U/L 08/21/2016 Comp Metabolic Xhu979 T(SGOT) 23 U/L 08/21/2016 Comp Metabolic Ykk778 AL T(SGPT) 16 U/L 08/21/2016 Comp Metabolic Zbc738 BI LI T 0.6 mg/dL 08/21/2016 Comp Metabolic Vaq873 AL BUMIN 3.9 g/dL 08/21/2016 Comp Metabolic Rln984 TP RO 6.8 g/dL 08/21/2016 Comp Metabolic Bsn392 GL OB 2.9 g/dL 08/21/2016 Comp Metabolic Sed941 A/ G Ratio 1.4 Ratio 08/21/2016 Comp Metabolic Trd710 Os mo 283 mOsmo 08/21/2016 Sed Rate Ord21 ESR 16 mm/hr 08/21/2016 Pt Ure7344 PT 27.2 seconds 08/21/2016 Pt Xdp7147 INR 2.7 08/21/2016 Pt Jhc3216 Low Intensity - 1.5-2.0 08/21/2016 Pt Rpt1847 Mod intensity - 2.0-3.0 08/21/2016 Pt Vfj9425 Hi intensity - 3.0-4.0 08/21/2016 Magnesium Ord90 Mag 1.9 mg/dL 08/21/2016 Pt Brx7197 PT 25.9 seconds 06/17/2016 Pt Gyp4655 INR 2.5 06/17/2016 Pt Zmu0381 Low Intensity - 1.5-2.0 06/17/2016 Pt Vjb4517 Mod intensity - 2.0-3.0 06/17/2016 Pt Dqh9470 Hi intensity - 3.0-4.0 06/17/2016 Tsh Ord6 hTSH II 2.13 uIU/mL 06/08/2016 Free T4 Msh488 FREE T4 0.79 ng/dL 06/08/2016 Cbc With [...] 26.8 pg 06/08/2016 Cbc With Differential Ord2 [place]% 12.0 % 06/08/2016 Cbc With Differential Ord2 [...] 1.40 K/ul 06/08/2016 Cbc With Differential Ord2 [place] ABS# 0.7 K/ul 06/08/2016 Cbc With Differential Ord2 Eos ABS# 0.3 K/ul 06/08/2016 Cbc With Differential Ord2 Baso ABS# 0.1 K/ul 06/08/2016 %Hba1C Jkx648 % HbA1c 64893-4 6.2 % 06/08/2016 %Hba1C Muz507 Gluc Ave 131 mg/dL 06/08/2016 Comp Metabolic Fdc510 NA 138 mEq/L 06/08/2016 Comp Metabolic Ulp781 K 3.9 mEq/L 06/08/2016 Comp Metabolic Zzd684 CL 105 mEq/L 06/08/2016 Comp Metabolic Ggz315 CO2 27.0 mEq/L 06/08/2016 Comp Metabolic Ady376 AN ION GAP 10 06/08/2016 Comp Metabolic Ydw495 GL UCOSE 127 mg/dL 06/08/2016 Comp Metabolic Iff546 Cr eat 1.0 mg/dL 06/08/2016 Comp Metabolic Egz264 eG FR 59 ml/min/1.73m2 06/08 Comp Metabolic Uuh009 BUN 19 mg/dL 06/08/2016 Comp Metabolic Yoj528 B/ C Ratio 19.4 Ratio 06/08/2016 Comp Metabolic Qir593 CA LCIUM 9.2 mg/dL 06/08/2016 Comp Metabolic Qhp220 AL K PHOS 77 U/L 06/08/2016 Comp Metabolic Fsb560 T(SGOT) 19 U/L 06/08/2016 Comp Metabolic Nnc879 AL T(SGPT) 13 U/L 06/08/2016 Comp Metabolic Zvt955 BI LI T 0.5 mg/dL 06/08/2016 Comp Metabolic Sar467 AL BUMIN 3.8 g/dL 06/08/2016 Comp Metabolic Ctv484 TP RO 6.6 g/dL 06/08/2016 Comp Metabolic Cdh254 GL OB 2.8 g/dL 06/08/2016 Comp Metabolic Fsq158 A/ G Ratio 1.4 Ratio 06/08/2016 Comp Metabolic Ehm793 Os mo 280 mOsmo 06/08/2016 Pt Lqw3833 PT 36.1 seconds 06/08/2016 Pt Gvs0617 INR 3.9 06/08/2016 Pt Vxm7791 Low Intensity - 1.5-2.0 06/08/2016 Pt Wuh8437 Mod intensity - 2.0-3.0 06/08/2016 Pt Nko4462 Hi intensity - 3.0-4.0 06/08/2016 Lipid Ord30 CHOL 149 mg/dL 06/08/2016 Lipid Ord30 HDL 46.0 mg/dl 06/08/2016 Lipid Ord30 TRIG 279 mg/dL 06/08/2016 Lipid Ord30 LDL 47 mg/dL 06/08/2016 Lipid Ord30 C/HDL 3.2 Ratio 06/08/2016 Pt Clo6760 PT 30.9 seconds 02/12/2016 Pt Qxe9109 INR 3.2 02/12/2016 Pt Hiw4167 Low Intensity - 1.5-2.0 02/12/2016 Pt Oma4570 Mod intensity - 2.0-3.0 02/12/2016 Pt Vmq2992 Hi intensity - 3.0-4.0 02/12/2016 Free T4 Bhs823 FREE T4 1.24 ng/dL 09/27/2015 %Hba1C Pax820 % HbA1c 11083-2 6.4 % 09/27/2015 %Hba1C Hnw299 Gluc Ave 137 mg/dL 09/27/2015 Tsh Ord6 hTSH II 0.37 uIU/mL 09/27/2015 Pt Qzl8306 PT 26.2 seconds 09/27/2015 Pt Uhg2422 INR 2.5 09/27/2015 Pt Ypg9177 Low Intensity - 1.5-2.0 09/27/2015 Pt Gkh7423 Mod intensity - 2.0-3.0 09/27/2015 Pt Yqx9425 Hi intensity - 3.0-4.0 09/27/2015 Pt Sax5227 PT 27.6 seconds 2015 Pt Acv4765 INR 2.7 2015 Pt Kha8555 Low Intensity - 1.5-2.0 2015 Pt Dsh0287 Mod intensity - 2.0-3.0 2015 Pt Ctr0525 Hi intensity - 3.0-4.0 2015 %Hba1C Ioa247 % HbA1c 33197-5 6.1 % 06/11/2015 %Hba1C Noi662 Gluc Ave 128 mg/dL 06/11/2015 Cbc With [...] Ord2 RDW 15.8 % 06/10/2015 Comp Metabolic Oxm913 NA 139 mEq/L 06/10/2015 Comp Metabolic Qxm331 K 4.1 mEq/L 06/10/2015 Comp Metabolic Tut975 CL 105 mEq/L 06/10/2015 Comp Metabolic Naq398 CO2 27.0 mEq/L 06/10/2015 Comp Metabolic Pca314 AN ION GAP 11 06/10/2015 Comp Metabolic Rql310 GL UCOSE 127 mg/dL 06/10/2015 Comp Metabolic Rbk538 Cr eat 1.0 mg/dL 06/10/2015 Comp Metabolic Nyn619 eG FR 59 ml/min/1.73m2 06/10 Comp Metabolic Otq767 BUN 21 mg/dL 06/10/2015 Comp Metabolic Vvs581 B/ C Ratio 21.2 Ratio 06/10/2015 Comp Metabolic Grx389 CA LCIUM 9.2 mg/dL 06/10/2015 Comp Metabolic Fro709 AL K PHOS 87 U/L 06/10/2015 Comp Metabolic Cdj301 T(SGOT) 20 U/L 06/10/2015 Comp Metabolic Emv449 AL T(SGPT) 17 U/L 06/10/2015 Comp Metabolic Jwp716 BI LI T 0.4 mg/dL 06/10/2015 Comp Metabolic Jwn086 AL BUMIN 4.1 g/dL 06/10/2015 Comp Metabolic Dzh503 TP RO 7.2 g/dL 06/10/2015 Comp Metabolic Rtb673 GL OB 3.1 g/dL 06/10/2015 Comp Metabolic Azc506 A/ G Ratio 1.3 Ratio 06/10/2015 Comp Metabolic Vfb024 Os mo 282 mOsmo 06/10/2015 Tsh Ord6 hTSH II 0.86 uIU/mL 06/10/2015 Lipid Ord30 CHOL 161 mg/dL 06/10/2015 Lipid Ord30 HDL 49.0 mg/dl 06/10/2015 Lipid Ord30 TRIG 208 mg/dL 06/10/2015 Lipid Ord30 LDL 70 mg/dL 06/10/2015 Lipid Ord30 C/HDL 3.3 Ratio 06/10/2015 Pt Fhr5949 PT 25.0 seconds 04/09/2015 Pt Egm8045 INR 2.4 04/09/2015 Pt Gtk1426 Low Intensity - 1.5-2.0 04/09/2015 Pt Udn1469 Mod intensity - 2.0-3.0 04/09/2015 Pt Qts2607 Hi intensity - 3.0-4.0 04/09/2015 Free T4 Ocw176 FREE T4 1.05 ng/dL 01/22/2015 Pt Bsu3797 PT 27.2 seconds 01/22/2015 Pt Wqq0003 INR 2.6 01/22/2015 Pt Hfw2734 Low Intensity - 1.5-2.0 01/22/2015 Pt Ojn9773 Mod intensity - 2.0-3.0 01/22/2015 Pt Chv4990 Hi intensity - 3.0-4.0 01/22/2015 Cbc With [...] Differential Ord2 RDW 15.2 % 01/22/2015 B12 Qey536 B12 402.00 pg/ml 01/22/2015 Tsh Ord6 hTSH II 0.65 uIU/mL 01/22/2015 Lipid Ord30 CHOL 166 mg/dL 01/22/2015 Lipid Ord30 HDL 48.0 mg/dl 01/22/2015 Lipid Ord30 TRIG 264 mg/dL 01/22/2015 Lipid Ord30 LDL 65 mg/dL 01/22/2015 Lipid Ord30 C/HDL 3.5 Ratio 01/22/2015 Comp Metabolic Tfb005 NA 138 mEq/L 01/22/2015 Comp Metabolic Cai037 K 4.1 mEq/L 01/22/2015 Comp Metabolic Zno678 CL 104 mEq/L 01/22/2015 Comp Metabolic Jqd119 CO2 29.0 mEq/L 01/22/2015 Comp Metabolic Tzc015 AN ION GAP 9 01/22/2015 Comp Metabolic Iba640 GL UCOSE 106 mg/dL 01/22/2015 Comp Metabolic Lag046 Cr eat 0.9 mg/dL 01/22/2015 Comp Metabolic Ytb405 eG FR 63 ml/min/1.73m2 01/22 Comp Metabolic Yyb117 BUN 21 mg/dL 01/22/2015 Comp Metabolic Zyt292 B/ C Ratio 22.3 Ratio 01/22/2015 Comp Metabolic Scy466 CA LCIUM 9.4 mg/dL 01/22/2015 Comp Metabolic Xuz099 AL K PHOS 83 U/L 01/22/2015 Comp Metabolic Zml154 T(SGOT) 23 U/L 01/22/2015 Comp Metabolic Cxg014 AL T(SGPT) 18 U/L 01/22/2015 Comp Metabolic Gvo639 BI LI T 0.8 mg/dL 01/22/2015 Comp Metabolic Wse773 AL BUMIN 4.2 g/dL 01/22/2015 Comp Metabolic Suw135 TP RO 7.3 g/dL 01/22/2015 Comp Metabolic Obu332 GL OB 3.1 g/dL 01/22/2015 Comp Metabolic Law560 A/ G Ratio 1.4 Ratio 01/22/2015 Comp Metabolic Hbn708 Os mo 279 mOsmo 01/22/2015 Review of [...] Procedure Codes Date THER/PROPH/DIAG INJ SC/IM CPT-4: 29177 09/02/2018 TRIAMCINOLONE ACET I [place] NOS CPT-4: J3301 09/02/2018 URINALYSIS NONAUTO W /O SCOPE CPT-4: 27111 03/05/2017 Vital Signs Date Vital 09/02/2018 Blood Pressure 1: 128/72 Code: 8480-6 BMI: 38.2 Code: 95735-9 Heart Rate 1: 80 bpm Height: 5'1" SpO2: 98% Weight: 202 lbs 04/14/2018 Blood Pressure 1: 116/78 Code: 8480-6 BMI: 41.6 Code: 10042-9 Heart Rate 1: 72 bpm Height: 5'1" SpO2: 98% Weight: 220 lbs 01/18/2018 Blood Pressure 1: 132/74 Code: 8480-6 BMI: 43.5 Code: 78091-0 Heart Rate 1: 70 bpm Height: 5'1" SpO2: 97% Weight: 230 lbs 01/04/2018 Blood Pressure 1: 134/76 Code: 8480-6 BMI: 42.7 Code: 60177-6 Heart Rate 1: 83 bpm Height: 5'1" SpO2: 98% Weight: 226 lbs 09/23/2017 Blood Pressure 1: 124/76 Code: 8480-6 BMI: 42.3 Code: 71343-6 Heart Rate 1: 94 bpm Height: 5'1" SpO2: 96% Weight: 224 lbs 05/27/2017 Blood Pressure 1: 146/78 Code: 8480-6 BMI: 41.4 Code: 62084-3 Heart Rate 1: 85 bpm Height: 5'1" SpO2: 98% Weight: 219 lbs 02/24/2017 Blood Pressure 1: 138/66 Code: 8480-6 BMI: 41.4 Code: 25208-3 Heart Rate 1: 78 bpm Height: 5'1" SpO2: 97% Weight: 219 lbs 11/02/2016 Blood Pressure 1: 144/72 Code: 8480-6 BMI: 46.1 Code: 62065-7 Heart Rate 1: 78 bpm Height: 5'1" SpO2: 98% Weight: 244 lbs 09/30/2016 Blood Pressure 1: 130/76 Code: 8480-6 BMI: 45.0 Code: 74413-2 Heart Rate 1: 86 bpm Height: 5'1" SpO2: 98% Weight: 238 lbs 09/10/2016 Blood Pressure 1: 136/68 Code: 8480-6 BMI: 46.3 Code: 64413-8 Heart Rate 1: 83 bpm Height: 5'1" SpO2: 98% Weight: 245 lbs 08/20/2016 Blood Pressure 1: 142/78 Code: 8480-6 BMI: 45.3 Code: 22497-7 Heart Rate 1: 84 bpm Height: 5'1" SpO2: 99% Weight: 240 lbs 06/08/2016 Blood Pressure 1: 134/76 Code: 8480-6 BMI: 44.2 Code: 65873-4 Heart Rate 1: 86 bpm Height: 5'1" SpO2: 96% Weight: 234 lbs 04/02/2016 Blood Pressure 1: 142/70 Code: 8480-6 BMI: 44.6 Code: 22874-6 Heart Rate 1: 78 bpm Height: 5'1" SpO2: 97% Weight: 236 lbs 01/14/2016 Blood Pressure 1: 146/72 Code: 8480-6 BMI: 44.2 Code: 61772-2 Heart Rate 1: 86 bpm Height: 5'1" SpO2: 96% Weight: 234 lbs 10/02/2015 Blood Pressure 1: 158/76 Code: 8480-6 BMI: 44.2 Code: 15077-5 Heart Rate 1: 67 bpm Height: 5'1" SpO2: 97% Weight: 234 lbs 07/15/2015 Blood Pressure 1: 200/90 Code: 8480-6 Blood Pressure 1: 148/78 Code: 8480-6 BMI: 44.0 Code: 59255-6 Heart Rate 1: 89 bpm Height: 5'1" SpO2: 97% Weight: 233 lbs 06/10/2015 Blood Pressure 1: 140/82 Code: 8480-6 BMI: 44.0 Code: 49331-9 Heart Rate 1: 78 bpm Height: 5'1" [...] wearing crocs and there was a new upper sorbian on the floor: her foot didn't move [...] Encounters Encounter Performer Loca tion Codes Date [id number] EST. PATIENT, LEVEL IV Diagnosis: Other acute sinusitis[ICD10: J01.80] Diagnosis: Other allergic rhinitis[ICD10: J30.89] Nata Almanza MD, [facility] CPT-4: 94918 09/02/2018 ([id number]) 53312 EST. P ATIENT, LEVEL IV Diagnosis: Essential (primary) hypertension[ICD10: I10] Diagnosis: Hypothyroidism, unspecified[ICD10: E03.9] Diagnosis: Impaired fasting glucose[ICD10: R73.01] Diagnosis: long-term (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[ICD10: Z79.01] Edna Almanza MD, [facility] CPT-4: 37243 04/14/2018 ([id number]) 42818 EST. P ATIENT, LEVEL III Diagnosis: Localized edema[ICD10: R60.0] Diagnosis: Gastro-esophageal reflux disease without esophagitis[ICD10: K21.9] Edna Almanza MD, [facility] CPT-4: 13941 01/18/2018 ([id number]) 21281 EST. P ATIENT, LEVEL IV Diagnosis: Gastro-esophageal reflux disease without esophagitis[ICD10: K21.9] Diagnosis: Localized edema[ICD10: R60.0] Diagnosis: Essential (primary) hypertension[ICD10: I10] Diagnosis: Hypothyroidism, unspecified[ICD10: E03.9] Diagnosis: Impaired fasting glucose[ICD10: R73.01] Edna Almanza MD, [facility] CPT-4: 31257 01/04/2018 ([id number]) 96200 EST. P ATIENT, LEVEL IV Diagnosis: Essential (primary) hypertension[ICD10: I10] Diagnosis: long-term (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[ICD10: Z79.01] Diagnosis: Incisional hernia without obstruction or gangrene[ICD10: K43.2] Diagnosis: Right lower quadrant pain[ICD10: R10.31] Sarai Almanza MD, [facility] CPT-4: 47687 09/23/2017 ([id number]) 93354 EST. P ATIENT, LEVEL IV Diagnosis: Essential (primary) hypertension[ICD10: I10] Diagnosis: Mixed hyperlipidemia[ICD10: E78.2] Diagnosis: Hypothyroidism, unspecified[ICD10: E03.9] Diagnosis: Impaired fasting glucose[ICD10: R73.01] Diagnosis: long-term (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[ICD10: Z79.01] Edna Almanza MD, [facility] CPT-4: 05813 05/27/2017 33740 EST. PATIENT, LEVEL III Diagnosis: Pain in right hip[ICD10: M25.551] Nata Almanza MD, [facility] CPT-4: 95939 02/24/2017 ([id number]) 25981 EST. [facility] Diagnosis: Essential (primary) hypertension[ICD10: I10] Diagnosis: Localized edema[ICD10: R60.0] Diagnosis: Pain in right hip[ICD10: M25.551] Sarai Almanza MD, [facility] CPT-4: 04121 11/02/2016 ([id number]) 55909 EST. [facility] Diagnosis: Essential (primary) hypertension[ICD10: I10] Diagnosis: Localized edema[ICD10: R60.0] Sarai Almanza MD, [facility] CPT-4: 26440 09/30/2016 64910 EST. PATIENT, LEVEL IV Diagnosis: Localized edema[ICD10: R60.0] Diagnosis: Pain in joints of left hand[ICD10: M25.542] Diagnosis: Pain in joints of right hand[ICD10: M25.541] Nata Almanza MD, [facility] CPT-4: 27532 09/10/2016 65303 EST. PATIENT, LEVEL IV Diagnosis: Localized edema[ICD10: R60.0] Diagnosis: Pain in joints of left hand[ICD10: M25.542] Diagnosis: Pain in joints of right hand[ICD10: M25.541] Diagnosis: Other fatigue[ICD10: R53.83] Nata Almanza MD, [facility] CPT-4: 40944 08/20/2016 44167 EST. PATIENT, LEVEL IV Diagnosis: Essential (primary) hypertension[ICD10: I10] Diagnosis: Other long-term (current) drug therapy[ICD10: Z79.899] Diagnosis: Tinnitus, bilateral[ICD10: H93.13] Nata Almanza MD, [facility] CPT-4: 75253 06/08/2016 31499 EST. PATIENT, LEVEL IV Diagnosis: Other allergic rhinitis[ICD10: J30.89] Diagnosis: Acute laryngopharyngitis[ICD10: J06.0] Nata Almanza MD, [facility] CPT-4: 15948 04/02/2016 08966 EST. PATIENT, LEVEL IV Diagnosis: Left upper quadrant pain[ICD10: R10.12] Nata Almanza MD, [facility] CPT-4: 84751 01/14/2016 28688 EST. PATIENT, LEVEL IV Diagnosis: Pain in left shoulder[ICD10: M25.512] Diagnosis: Body mass index (BMI) 40.0-44.9, adult[ICD10: Z68.41] Nata Almanza MD, [facility] CPT-4: 56217 10/02/2015 23218 EST. PATIENT, LEVEL IV Diagnosis: Pain in left leg[ICD10: M79.605] Diagnosis: Other salvage determiner (current) drug therapy[ICD10: Z79.899] Nata Almanza MD, [facility] CPT-4: 44167 07/15/2015 ([id number]) 77252 EST. 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: Other salvage determiner (current) drug therapy[ICD10: Z79.899] [facility] CPT-4: 41452 06/10/2015 ([id number]) OFFICE VISI T, NEW - LEVEL 4 Diagnosis: ESSENTIAL HYPERTENSION[ICD9: 401.9] Diagnosis: HYPOTHYROIDISM[ICD9: 244.9] Diagnosis: ENCNTR LONG-RX USE NEC[ICD9: V58.69] Diagnosis: HYPERLIPIDEMIA[ICD9: 272.4] Diagnosis: Vitamin B12 deficiency[ICD9: 266.2] Diagnosis: Status post gastric surgery[ICD9: V45.89] Diagnosis: Snoring[ICD9: 786.09] [facility] CPT-4: 76274 01/22/2015 Plan of Care Planned Activity Notes [...] spray. 09/02/2018 [phone] [facility] ([facility] min) Moderate 09/02/2018 Patient Education: [...] A1C 04/14/2018 App[facility]ment: [facility] [phone] [phone] (15 min) Moderate 04/14/2018 Patient Education: [...] to further attempt to reduce peripheral edema. TSWZ-hsyiyzpv-vlrrsbur prilosec BID and carafate QID -discussed low spice, low acidic diet 01/18/2018 Appointment: [facility] [phone] [phone] (15 min) Moderate 01/18/2018 Patient Education: [...] of control. 01/04/2018 Appointment: Edna Douglas [facility]el[phone] (30 min) Complex 01/04/2018 Patient Education: Patient Medication Summary Completed 01/04/2018 Care Plan: SCREENINGMAMMOGRAPHYDIGITAL LOINC : 48825-3 Pending 01/04/2018 Visit Plan: Abdominal hernia - not able to be taken to surgery by local providers and pt has been seen at [facility] and that surgeon felt like [...] at home. 09/23/2017 Appointment: Sar[facility] ([facility] min) Moderate 09/23/2017 Patient Education: [...] medications. 05/27/2017 Appointment: Edna Douglas WPtel: [phone] [phone] (30 min) Complex 05/27/2017 Patient Education: [...] surgical clearance by Dr. Palacios. 02/24/2017 Appointment: aNta Hsu WPtel: [facility] (30 min) Complex 02/24/2017 Patient Education: Patient [...] Chaney. 11/02/2016 Appointment: Sarai Almanza WPtel: [phone] [facility] (15 min) Moderate 11/02/2016 Patient Education: [...] edema. 09/30/2016 Appointment: Sarai Almanza WPtel: [phone] [facility] (15 min) Moderate 09/30/2016 [...] peripheral edema. 09/10/2016 Appointment: Nata Hsu WPtel: [facility] (30 min) Complex 09/10/2016 Patient [...] peripheral edema. 08/20/2016 Appointment: Nata Hsu WPtel: [facility] (30 min) Complex 08/20/2016 Patient Education: Patient Medication Summary Completed 08/20/2016 Referral: Otf Lee [id number] [place] Referral Initiated 07/02/2016 Visit Plan: Chronic [...] 06/08/2016 Care Plan: Referral Order SNOMED-CT : [id number] Pending 06/08/2016 Visit Plan: URI - Pt [...] allergy spray. 04/02/2016 Appointment: Nata Hsu WPtel: [facility] (30 min) Complex 04/02/2016 Patient Education: [...] pain 01/14/2016 Appointment: Edna Douglas WPtel: [phone] [phone] [place] (30 min) Complex 01/14/2016 Patient Education: Patient Medication Summary Completed 01/14/2016 Patient Education: Obesity Completed 01/14/2016 Care Plan: BMI Above normal followup DAVID F-MGMT EDUC & TRAIN 1 PT Pending 10/24/2015 Care Plan: X-RAY EXAM OF SHOULDER LOINC : 46028-0 Pending 10/24/2015 Visit Plan: Left shoulder pain [...] weight check. 10/02/2015 Appointment: Edna Douglas WPtel[phone] (15 min) Moderate 10/02/2015 Patient Education: [...] ses Completed 06/10/2015 App[facility]ment: [facility] [phone] [facility] (15 min) Moderate 04/22/2015 Visit Plan: [...] surgical fixation - planning occurring at [facility]. Snoring - Sleep apnea symptoms with [...] medications. 01/22/2015 Appointment: [facility] [phone] [facility] [place] ([place] New Patient 01/22/2015 Patient Education: Patient Medication Summary Completed 01/22/2015 Patient Education: Hypertension Completed 01/22/2015 [facility] [place] Ref[facility] Initiated Instructions Comment XRAY RIGHT SHOULDER CUT BACK ON SODIUM/SALTY [...] to further attempt to reduce peripheral edema. JMLO-qzxhmuov-spdnazhv prilosec BID and carafate QID -discussed low [...] and pt has been seen at [facility] and that surgeon felt like [...] surgical fixation - planning occurring at [facility]. Snoring - Sleep apnea symptoms with [...]
--- OUTSIDE RECORDS SUMMARY | 2020-01-16 23:02 | XMS REPORT | CCD ---
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 [place] Medicare Part B [id number] 2017 Unknown Family history Father Diagnosis Age At Onset Hyperlipidemia Unknown Heart Attack Unknown Mother Diagnosis Age At Onset Arthritis Unknown Social History Social History Element Codes Description Effective Dates Marital status Unknown M arried Nathan 09/30/2016 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 Number of children Unknown 3 01/22/[address]: 815431051 Never smoker 01/22/[address]: 369285813 Never drinks alcohol 01/22/2015 Allergies, Adverse Reactions, Alerts Substance Reaction Codes Entered Date Inactivated Date Status * NO KNOWN DRUG ORIN RGIES Unknown 01/22/2015 No Inactive Date Active Past Medical History Illness Codes Condition Status Onset Date Resolved Date Mixed hyperlipidemia ICD-9: 272.4 ICD-10: E78.2 Active 06/09/2015 Unknown Hypothyroidism, unsp ecified ICD-9: 244.9 ICD-10: E03.9 Active 05/27/2017 Unknown 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 ICD-10: [...] ICD-9: 244.9 ICD-10: E03.9 05/27/2017 Active 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 ICD-10: [...] Date Stop Date Sta tus Fill Instructions atenolol 100 mg tablet RxNorm: 550559 TAKE ONE TABLET BY MOUTH DAILY 10/24/2018 05/21/2019 Ac tive potassium chloride E R 20 mEq tablet,extended release RxNorm: 331150 2 Tablet(s) PO daily 10/18/2018 02/14/2019 Active potassium chloride E R 20 mEq tablet,extended release RxNorm: 774167 1 Tablet(s) PO daily 10/03/2018 10/17/2018 Inactive Carafate 1 gram tablet RxNorm: 997665 TAKE ONE TABLET BY MOUTH BEFORE MEALS AN D AT BEDTIME 09/26/2018 11/16/2018 Active Plavix 75 mg tablet RxNorm: 618198 TAKE ONE TABLET BY MOUTH DAILY 09/02/2018 02/28/2019 Ac tive prednisone 10 mg tablet RxNorm: 621044 Tablet(s) PO 09/02/2018 No Stop Date Active 60,60,50,50,40,40,30,30,20,20,10,10 Synthroid 125 mcg ta blet RxNorm: 104379 1 Tablet(s) PO daily 09/02/2018 08/27/2019 Active potassium chloride E R 20 mEq tablet,extended release RxNorm: 707471 1 Tablet(s) PO daily 09/02/2018 09/01/2018 Inactive potassium chloride E R 20 mEq tablet,extended release RxNorm: 849675 1 Tablet(s) PO daily 09/02/2018 10/02/2018 Inactive Synthroid 125 mcg ta blet RxNorm: 285581 1 Tablet(s) PO daily 09/02/2018 09/01/2018 Inactive Keflex 500 mg capsule RxNorm: 570383 1 Capsule(s) PO TID 09/02/2018 09/08/2018 Inactive Kenalog 40 mg/mL maxine pension for injection RxNorm: 8701617 Milliliter(s) Inj 09/02/2018 09/02/2018 In active Lipitor 40 mg tablet RxNorm: 410286 TAKE ONE TABLET BY MOUTH DAILY 07/29/2018 07/23/2019 Ac tive Coumadin 1 mg tablet RxNorm: 872032 TAKE ONE TABLET BY MOUTH DAILY 07/29/2018 10/26/2018 Ac tive Carafate 1 gram tablet RxNorm: 964113 TAKE ONE TABLET BY MOUTH BEFORE MEALS AN D AT BEDTIME 07/28/2018 09/17/2018 Inactive Coumadin 4 mg tablet RxNorm: 695406 2 Tablet(s) daily 07/11/2018 02/05/2019 Active Generi c For:COUMADIN 4MG 07/22/2017 8:58:26 AM Coumadin 5 mg tablet RxNorm: 510258 Tablet(s) TAKE 1 TABLET BY MOUTH DIRE CTED 07/08/2018 01/03/2019 Ac tive Generic For:COUMADIN 5MG TAB 03/21/2018 9:13:00 AM Coumadin 4 mg tablet RxNorm: 382586 Tablet(s) TAKE 1 TABLET BY MOUTH THREE T IMES PER WEEK (WEDNESDAY, WEDNESDAY AND WEDNESDAY) 07/08/2018 07/10/2018 Inactive Gene andre For:COUMADIN 4MG 07/22/2017 8:58:26 AM Coumadin 1 mg tablet RxNorm: 504812 1 Tablet(s) PO daily 07/08/2018 08/06/2018 Inactive venlafaxine ER 75 mg capsule,extended release 24 hr RxNorm: 141133 Capsule(s) TAKE 1 CAPSULE BY MOUTH ONCE DAILY 06/23/2018 06/17/2019 Active Generic For:*EFFEXOR XR 75MG 06/19/2017 12:23:45 PM sodium bicarbonate 6 50 mg tablet RxNorm: 600600 Tablet(s) TAKE 2 TABL ETS BY MOUTH TWICE DAILY 06/23/2018 12/19/2018 Active 12/20/2017 9:10:59 AM Coumadin 1 mg tablet RxNorm: 338657 1 Tablet(s) PO daily 06/17/2018 07/07/2018 Inactive Coumadin 1 mg tablet RxNorm: 741830 1 Tablet(s) PO daily 06/17/2018 06/16/2018 Inactive clonazepam 0.5 mg ta blet RxNorm: 782389 1 Tablet(s) PO BID 06/08/2018 11/04/2018 Active spironolactone 25 mg tablet RxNorm: 955632 TAKE 1 TABLET BY MOUT H EVERY DAY 05/18/2018 05/12/2019 Ac tive Generic For:*ALDACTONE 25MG 05/18/2018 8:57:50 AM Carafate 1 gram tablet RxNorm: 178205 TAKE ONE TABLET BY MOUTH BEFORE MEALS AN D AT BEDTIME 05/18/2018 07/12/2018 Inactive Generic For:CARAFATE 1GM 1 07/18/2017 8:38:28 AM Synthroid 137 mcg ta blet RxNorm: 856804 TAKE 1 TABLET BY MOUT H ONCE DAILY 05/18/2018 08/30/2018 In active Generic For:SYNTHROID 137MCG TAB 2017 8:57:54 AM allopurinol 300 mg t ablet RxNorm: 102555 TAKE 1 TABLET BY MOUT H ONCE DAILY. 04/18/2018 10/14/2018 In active Generic For:ZYLOPRIM 300 MG TABLET 03/22 9:13:47 AM Lasix 20 mg tablet RxNorm: 459964 TAKE ONE TABLET BY MOUTH DAILY 04/18/2018 08/15/2018 In active Generic For:LASIX 20MG 04/18/2018 9:13: 50 AM Carafate 1 gram tablet RxNorm: 014635 TAKE ONE TABLET BY MOUTH BEFORE MEALS AN D AT BEDTIME 04/18/2018 05/17/2018 Inactive Generic For:CARAFATE 1GM 1 9:32:51 AM Coumadin 5 mg tablet RxNorm: 810336 TAKE 1 TABLET BY MOUTH DIRECTED 03/21/2018 07/07/2018 In active Generic For:COUMADIN 5MG TAB 03/21/2018 9:13:00 AM Carafate 1 gram tablet RxNorm: 669127 TAKE ONE TABLET BY MOUTH BEFORE MEALS AN D AT BEDTIME 03/21/2018 04/17/2018 Inactive Generic For:CARAFATE 1GM 1 9:14:24 AM Carafate 1 gram tablet RxNorm: 722473 1 Tablet(s) PO AC & HS 02/17/2018 03/20/2018 Inactive atenolol 100 mg tablet RxNorm: 317287 1 Tablet(s) PO daily 02/04/2018 09/01/2018 Inactive atenolol 50 mg tablet RxNorm: 167306 1 Tablet(s) PO daily 02/03/2018 02/03/2018 Inactive omeprazole 20 mg cap sean,delayed release RxNorm: 672641 1 Capsule(s) BID 01/21/2018 01/15/2019 Ac tive Generic For:PRILOSEC 20MG 07/22/2017 8:5 8:20 AM Carafate 1 gram tablet RxNorm: 751842 1 Tablet(s) PO AC & HS 01/21/2018 02/16/2018 Inactive Carafate 1 gram tablet RxNorm: 559763 1 Tablet(s) PO AC & HS 01/18/2018 01/20/2018 Inactive Carafate 1 gram tablet RxNorm: 206943 1 Tablet(s) PO AC & HS 01/18/2018 02/27/2018 Inactive Carafate 1 gram tablet RxNorm: 420102 1 Tablet(s) PO AC & HS TAKE ONE TABLET B Y MOUTH TWICE DAILY 01/18/2018 05/17/2018 Inactive Generic For:CARAFATE 1GM 0 12/20/2017 9:10:56 AM omeprazole 20 mg cap sean,delayed release RxNorm: 908760 Capsule(s) TAKE 1 CAP SEAN BY MOUTH EVERY DAY 01/17/2018 01/20/2018 Inactive Generic For:PRILOSEC 20MG 0 07/22/2017 8:58:20 AM omeprazole 20 mg cap sean,delayed release RxNorm: 964692 Capsule(s) TAKE 1 CAP SEAN BY MOUTH EVERY DAY 01/14/2018 01/16/2018 Inactive Generic For:PRILOSEC 20MG 07/22/2017 8:58:20 AM clonazepam 0.5 mg ta blet RxNorm: 755051 1 Tablet(s) PO BID 01/07/2018 06/05/2018 Inactive Plavix 75 mg tablet RxNorm: 642547 1 Tablet(s) PO daily 01/07/2018 07/05/2018 Inactive Carafate 1 gram tablet RxNorm: 079190 1 Tablet(s) PO AC & HS 01/04/2018 01/17/2018 Inactive Lasix 20 mg tablet RxNorm: 710267 TAKE ONE TABLET BY MOUTH DAILY 12/20/2017 04/17/2018 In active Generic For:LASIX 20MG 12/20/2017 9:11: 03 AM sodium bicarbonate 6 50 mg tablet RxNorm: 198112 TAKE 2 TABLETS BY JAVON TH TWICE DAILY 12/20/2017 06/17/2018 In active 12/20/2017 9:10:59 AM Carafate 1 gram tablet RxNorm: 008948 TAKE ONE TABLET BY MOUTH TWICE DAILY 12/20/2017 01/17/2018 In active Generic For:CARAFATE 1GM 12/20/2017 9:1 0:56 AM Synthroid 137 mcg ta blet RxNorm: 220801 TAKE 1 TABLET BY MOUT H ONCE DAILY 11/19/2017 05/17/2018 In active Generic For:SYNTHROID 137MCG TAB 2017 8:58:04 AM Detrol LA 4 mg capsu le,extended release RxNorm: 796885 TAKE 1 CAPSULE BY JAVON TH ONCE DAILY 10/20/2017 04/13/2018 Inactive Generic For:DETROL LA 4MG C AP 10/20/2017 9:01:56 AM allopurinol 300 mg t ablet RxNorm: 157511 TAKE 1 TABLET BY MOUT H ONCE DAILY. 10/20/2017 04/17/2018 In active Generic For:ZYLOPRIM 300 MG TABLET 07/2017 9:01:59 AM Coumadin 5 mg tablet RxNorm: 925939 1 Tablet(s) PO UD 10/01/2017 03/20/2018 Inactive cyclobenzaprine 5 mg tablet RxNorm: 378649 1 Tablet(s) PO TID as needed myscle spasm 09/23/2017 10/12/2017 Inactive Lipitor 40 mg tablet RxNorm: 638657 TAKE 1 TABLET BY MOUTH ONCE DAILY 09/20/2017 07/28/2018 In active Generic For:LIPITOR 40MG 09/20/2017 8:5 6:04 AM atenolol 100 mg tablet RxNorm: 952824 1 Tablet(s) PO daily 08/30/2017 02/03/2018 Inactive atenolol 50 mg tablet RxNorm: 407618 1 Tablet(s) PO daily 08/30/2017 08/30/2017 Inactive Lovenox 30 mg/0.3 mL subcutaneous syringe RxNorm: 236099 0.3 Milliliter(s) SQ Q12H 08/24/2017 09/06/2017 In active Lasix 20 mg tablet RxNorm: 614689 TAKE ONE TABLET BY MOUTH DAILY 08/23/2017 12/19/2017 In active Generic For:LASIX 20MG 08/21/2017 9:04: 27 AM Synthroid 137 mcg ta blet RxNorm: 347616 TAKE 1 TABLET BY MOUT H ONCE DAILY 08/23/2017 11/18/2017 In active Generic For:SYNTHROID 137MCG TAB 2017 9:04:30 AM Lovenox 30 mg/0.3 mL subcutaneous syringe RxNorm: 560870 0.3 Milliliter(s) SQ Q12H 08/10/2017 08/23/2017 In active clonazepam 0.5 mg ta blet RxNorm: 351574 1 Tablet(s) PO BID 08/04/2017 12/30/2017 Inactive omeprazole 20 mg cap sean,delayed release RxNorm: 103858 TAKE 1 CAPSULE BY JAVON TH EVERY DAY 07/22/2017 01/13/2018 Inactive Generic For:PRILOSEC 20MG 07/22/2017 8: 58:20 AM Coumadin 4 mg tablet RxNorm: 519960 TAKE 1 TABLET BY MOUTH THREE TIMES PER [place] (WEDNESDAY, WEDNESDAY AND WEDNESDAY) 07/22/2017 10/03/2018 Inactive Generic For:COUMADIN 4MG 07/22/2017 8:58:26 AM Coumadin 4 mg tablet RxNorm: 381741 TAKE 1 TABLET BY MOUTH THREE TIMES PER [place] (WEDNESDAY, WEDNESDAY AND WEDNESDAY) 07/22/2017 02/16/2018 Inactive Generic For:COUMADIN 4MG 07/22/2017 8:58:26 AM sodium bicarbonate 6 50 mg tablet RxNorm: 443323 TAKE 2 TABLETS BY JAVON TH TWICE DAILY 06/22/2017 12/18/2017 In active 06/19/2017 12:23:30 PM venlafaxine ER 75 mg capsule,extended release 24 hr RxNorm: 780506 TAKE 1 CAPSULE BY MOUTH ONCE DAILY 06/22/2017 06/16/2018 Inactive Generic For:*EFFEXOR XR 75M G 06/19/2017 12:23:45 PM Coumadin 5 mg tablet RxNorm: 616956 1 Tablet(s) PO UD 06/01/2017 09/30/2017 Inactive Keflex 500 mg capsule RxNorm: 242184 1 Capsule(s) PO TID 05/27/2017 06/02/2017 Inactive Synthroid 137 mcg ta blet RxNorm: 689813 TAKE 1 TABLET BY MOUT H ONCE DAILY 05/24/2017 08/21/2017 In active Generic For:SYNTHROID 137MCG TAB 2016 8:55:59 AM Carafate 1 gram tablet RxNorm: 337330 TAKE ONE TABLET BY MOUTH TWICE DAILY 05/24/2017 12/19/2017 In active Generic For:CARAFATE 1GM 05/24/2017 8:5 5:54 AM spironolactone 25 mg tablet RxNorm: 582503 1 Tablet(s) PO daily 05/24/2017 05/17/2018 Inactive Detrol LA 4 mg capsu le,extended release RxNorm: 361977 1 Capsule(s) PO daily TAKE 1 CAPSULE BY MOUTH ONCE DAILY 05/10/2017 10/19/2017 Inactive Generic For:DETROL LA 4MG CAP 02/19/2017 2:36:00 PM Lasix 20 mg tablet RxNorm: 241269 TAKE ONE TABLET BY MOUTH DAILY 04/23/2017 08/20/2017 In active Generic For:LASIX 20MG 04/23/2017 9:04: 01 AM Coumadin 4 mg tablet RxNorm: 514436 TAKE 1 TABLET BY MOUTH THREE TIMES PER [place] (WEDNESDAY, WEDNESDAY AND WEDNESDAY) 04/23/2017 07/21/2017 Inactive Generic For:COUMADIN 4MG 04/23/2017 9:04:05 AM allopurinol 300 mg t ablet RxNorm: 560193 TAKE 1 TABLET BY MOUT H ONCE DAILY. 04/23/2017 10/19/2017 In active Generic For:ZYLOPRIM 300 MG TABLET 08/2016 9:03:57 AM potassium chloride 2 0 mEq/15 mL oral liquid RxNorm: 294039 Milliliter(s) 30 Milliliter(s) (40mEq) PO daily 03/24/2017 07/21/2017 Inactive Lovenox 30 mg/0.3 mL subcutaneous syringe RxNorm: 668506 0.3 Milliliter(s) SQ Q12H 03/22/2017 03/26/2017 In active Lovenox 30 mg/0.3 mL subcutaneous syringe RxNorm: 275884 0.3 Milliliter(s) SQ Q12H 03/19/2017 03/20/2017 In active Lovenox 30 mg/0.3 mL subcutaneous syringe RxNorm: 126960 0.3 Milliliter(s) SQ Q12H 03/16/2017 03/18/2017 In active clonazepam 0.5 mg ta blet RxNorm: 033275 1 Tablet(s) PO BID 03/02/2017 10/03/2018 Inactive Lovenox 30 mg/0.3 mL subcutaneous syringe RxNorm: 417594 1 injection SQ BID do NOT take the night time dose the day before surgery, or the morning dose the day of surgery 03/01/2017 03/07/2017 Inactive Lovenox 30 mg/0.3 mL subcutaneous syringe RxNorm: 240602 1 injection SQ BID 03/01/2017 02/28/2017 In active Detrol LA 4 mg capsu le,extended release RxNorm: 263871 TAKE 1 CAPSULE BY JAVON TH ONCE DAILY 02/19/2017 05/09/2017 Inactive Generic For:DETROL LA 4MG C AP 02/19/2017 2:36:00 PM hydrocodone 5 mg-humberto taminophen 325 mg tablet RxNorm: 577734 1-2 Tablet(s) PO Q6 P RN 02/04/2017 No Stop Date Active Zetia 10 mg tablet RxNorm: 807876 TAKE 1 TABLET BY MOUTH DAILY 01/25/2017 04/13/2018 Inactive 01/23/2017 9:03:48 AM omeprazole 20 mg cap sean,delayed release RxNorm: 049150 TAKE 1 CAPSULE BY JAVON TH EVERY DAY 01/25/2017 07/21/2017 Inactive Generic For:PRILOSEC 20MG 01/23/2017 9: 03:45 AM Coumadin 4 mg tablet RxNorm: 126665 TAKE 1 TABLET BY MOUTH THREE TIMES PER [place] (WEDNESDAY, WEDNESDAY AND WEDNESDAY) 01/25/2017 04/22/2017 Inactive Generic For:COUMADIN 4MG 01/23/2017 9:03:51 AM sodium bicarbonate 6 50 mg tablet RxNorm: 732943 TAKE 2 TABLETS BY JAVON TH TWICE DAILY 12/24/2016 06/21/2017 In active 12/24/2016 9:09:27 AM Lasix 20 mg tablet RxNorm: 178129 1 Tablet(s) PO daily 12/24/2016 04/22/2017 Inactive Synthroid 137 mcg ta blet RxNorm: 149307 TAKE 1 TABLET BY MOUT H ONCE DAILY 11/24/2016 05/22/2017 In active Generic For:SYNTHROID 137MCG TAB 2016 9:04:37 AM Coumadin 4 mg tablet RxNorm: 578776 TAKE 1 TABLET BY MOUTH THREE TIMES PER [place] (WEDNESDAY, WEDNESDAY AND WEDNESDAY) 11/24/2016 01/22/2017 Inactive Generic For:COUMADIN 4MG 11/24/2016 9:04:41 AM hydrocodone 5 mg-humberto taminophen 325 mg tablet RxNorm: 529309 1-2 Tablet(s) PO Q6 P RN 11/17/2016 02/03/2017 In active Carafate 1 gram tablet RxNorm: 728285 TAKE ONE TABLET BY MOUTH TWICE DAILY 10/27/2016 05/23/2017 In active Generic For:CARAFATE 1GM 10/26/2016 8:3 9:42 AM allopurinol 300 mg t ablet RxNorm: 775335 Tablet(s) TAKE 1 TABL ET BY MOUTH ONCE DAILY. 10/26/2016 04/22/2017 Inactive Lipitor 40 mg tablet RxNorm: 499041 1 Tablet(s) PO daily 09/25/2016 09/19/2017 Inactive Coumadin 4 mg tablet RxNorm: 376904 TAKE 1 TABLET BY MOUTH THREE TIMES PER [place] (WEDNESDAY, WEDNESDAY AND WEDNESDAY) 09/25/2016 11/23/2016 Inactive Generic For:COUMADIN 4MG 09/25/2016 8:55:58 AM Zetia 10 mg tablet RxNorm: 502132 1 Tablet(s) PO daily 09/25/2016 01/22/2017 Inactive gave 1 month of samples clonazepam 0.5 mg ta blet RxNorm: 943493 1 Tablet(s) PO BID 09/21/2016 10/03/2018 Inactive Lasix 20 mg tablet RxNorm: 997666 1 Tablet(s) PO daily 09/15/2016 12/23/2016 Inactive potassium chloride 2 0 mEq/15 mL oral liquid RxNorm: 661828 Milliliter(s) 30 Milliliter(s) (40mEq) PO daily 09/15/2016 01/12/2017 Inactive Lasix 20 mg tablet RxNorm: 488172 2 Tablet(s) PO daily 09/10/2016 09/12/2016 Inactive Lasix 20 mg tablet RxNorm: 826139 1 Tablet(s) PO daily 08/28/2016 08/30/2016 Inactive Lasix 20 mg tablet RxNorm: 333539 1 Tablet(s) PO daily 08/20/2016 08/22/2016 Inactive Detrol LA 4 mg capsu le,extended release RxNorm: 436888 TAKE 1 CAPSULE BY JAVON TH ONCE DAILY 07/27/2016 02/18/2017 Inactive Generic For:DETROL LA 4MG C AP 07/27/2016 9:08:27 AM Coumadin 4 mg tablet RxNorm: 534632 1 Tablet(s) PO 3 x week wed and sun 07/27/2016 09/24/2016 In active omeprazole 20 mg cap sean,delayed release RxNorm: 891845 Capsule(s) PO TAKE 1 CAPSULE BY MOUTH ONCE DAILY 07/27/2016 01/22/2017 Inactive venlafaxine ER 75 mg capsule,extended release 24 hr RxNorm: 663224 1 Capsule(s) PO daily 06/29/2016 06/21/2017 Inactive sodium bicarbonate 6 50 mg tablet RxNorm: 122859 TAKE 2 TABLETS BY JAVON TH TWICE DAILY 06/29/2016 12/23/2016 In active 06/27/2016 9:05:39 AM Coumadin 4 mg tablet RxNorm: 564490 1 Tablet(s) PO 3 x week e and sun 06/09/2016 06/08/2016 In active Coumadin 4 mg tablet RxNorm: 125424 1 Tablet(s) PO 3 x week e and sun 06/09/2016 07/26/2016 In active Zetia 10 mg tablet RxNorm: 133347 1 Tablet(s) PO daily 06/09/2016 06/08/2016 Inactive gave 1 month of samples Zetia 10 mg tablet RxNorm: 324520 1 Tablet(s) PO daily 06/09/2016 09/24/2016 Inactive gave 1 month of samples Effexor 75 mg tablet RxNorm: 146258 1 Tablet(s) PO daily 06/08/2016 06/28/2016 Inactive spironolactone 25 mg tablet RxNorm: 414689 1 Tablet(s) PO daily 06/08/2016 05/23/2017 Inactive Synthroid 137 mcg ta blet RxNorm: 395985 1 Tablet(s) PO daily 05/07/2016 11/02/2016 Inactive allopurinol 300 mg t ablet RxNorm: 208980 Tablet(s) TAKE 1 TABL ET BY MOUTH ONCE DAILY. 04/28/2016 10/24/2016 Inactive clonazepam 0.5 mg ta blet RxNorm: 665474 1 Tablet(s) PO BID 04/20/2016 10/03/2018 Inactive Flonase Allergy Reli ef 50 mcg/actuation nasal spray,suspension RxNorm: 7936023 1 [place] NASAL BID 04/02/2016 No Stop Date Active Zithromax Z-Thomas 250 mg tablet RxNorm: 713564 Tablet(s) PO 04/02/2016 08/27/2016 Inactive cetirizine 10 mg tablet RxNorm: 5936211 1 Tablet(s) PO daily 04/02/2016 05/01/2016 Inactive Carafate 1 gram tablet RxNorm: 891245 Tablet(s) TAKE 1 TABLET TWICE A DAY FOR 30 DAYS 03/30/2016 10/25/2016 Inactive Generic For:CARAFATE 1GM 02/08/2015 12:3 6:39 PM Plavix 75 mg tablet RxNorm: 247165 1 Tablet(s) PO daily 03/11/2016 09/06/2016 Inactive sodium bicarbonate 6 50 mg tablet RxNorm: 968252 Tablet(s) 2 Tablet(s) PO BID 02/28/2016 06/26/2016 In active omeprazole 20 mg cap sean,delayed release RxNorm: 109857 Capsule(s) PO TAKE 1 CAPSULE BY MOUTH ONCE DAILY 01/31/2016 07/26/2016 Inactive Fish Oil 1,000 mg ca psule RxNorm: 1 Capsule(s) PO BID 01/14/2016 No Stop Date Active Synthroid 137 mcg ta blet RxNorm: 319919 1 Tablet(s) PO daily 01/14/2016 05/06/2016 Inactive Detrol LA 4 mg capsu le,extended release RxNorm: 586616 TAKE 1 CAPSULE BY JAVON TH ONCE DAILY 12/30/2015 07/26/2016 Inactive Generic For:DETROL LA 4MG C AP 12/30/2015 9:11:01 AM potassium chloride 2 0 mEq/15 mL oral liquid RxNorm: 773097 Milliliter(s) 30 Milliliter(s) (40mEq) PO daily 12/02/2015 03/30/2016 Inactive sodium bicarbonate 6 50 mg tablet RxNorm: 442079 Tablet(s) 2 Tablet(s) PO BID 10/31/2015 02/27/2016 In active Lipitor 40 mg tablet RxNorm: 832086 1 Tablet(s) PO daily 10/09/2015 09/24/2016 Inactive sodium bicarbonate 6 50 mg tablet RxNorm: 420731 2 Tablet(s) PO BID 10/01/2015 10/30/2015 Inactive allopurinol 300 mg t ablet RxNorm: 256265 TAKE 1 TABLET BY MOUT H ONCE DAILY. 10/01/2015 04/27/2016 In active Generic For:ZYLOPRIM 300 MG TABLET 09/19 9:21:15 AM clonazepam 0.5 mg ta blet RxNorm: 768857 1 Tablet(s) PO BID 09/30/2015 04/19/2016 Inactive Coumadin 5 mg tablet RxNorm: 878270 1 Tablet(s) PO daily 09/27/2015 05/31/2017 Inactive Generic For:COUMADIN 5MG TAB N O T I C E PRESCRIPTION PREVIOUSLY AUTHORIZED BY DOCTOR:BOBBY ZULETA Synthroid 125 mcg ta blet RxNorm: 399366 1 Tablet(s) PO daily 09/27/2015 09/26/2015 Inactive Synthroid 125 mcg ta blet RxNorm: 655800 1 Tablet(s) PO daily 09/27/2015 01/13/2016 Inactive Carafate 1 gram tablet RxNorm: 039312 Tablet(s) TAKE 1 TABLET TWICE A DAY FOR 30 DAYS 09/02/2015 03/29/2016 Inactive Generic For:CARAFATE 1GM 02/08/2015 12:3 6:39 PM sodium bicarbonate 6 50 mg tablet RxNorm: 835750 2 Tablet(s) PO BID 09/02/2015 09/30/2015 Inactive Prilosec 20 mg capsu le,delayed release RxNorm: 281605 TAKE 1 CAPSULE BY JAVON TH ONCE DAILY 08/02/2015 01/28/2016 Inactive Generic For:PRILOSEC 20MG 08/02/2015 10:03:09 AM N O T I C E PRESCRIPTION PREVIOUSLY AUTHORIZED BY DOCTOR:BOBBY ZULETA Zyrtec 10 mg capsule RxNorm: 1964850 1 Capsule(s) PO daily 07/15/2015 08/13/2015 Inactive Keflex 500 mg capsule RxNorm: 931328 1 Capsule(s) PO TID 07/15/2015 07/21/2015 Inactive cetirizine 10 mg cap sean RxNorm: 6119953 1 Capsule(s) PO daily 07/15/2015 08/13/2015 Inactive hydrocodone 5 mg-humberto taminophen 325 mg tablet RxNorm: 425560 1-2 Tablet(s) PO Q6 P RN 06/10/2015 11/16/2016 In active sodium bicarbonate 6 50 mg tablet RxNorm: 896197 2 Tablet(s) PO BID 06/03/2015 08/31/2015 Inactive Detrol LA 4 mg capsu le,extended release RxNorm: 525720 TAKE 1 CAPSULE BY JAVON TH ONCE DAILY 06/03/2015 12/29/2015 Inactive Generic For:DETROL LA 4MG C AP N O T I C E PRESCRIPTION PREVIOUSLY AUTHORIZED BY DOCTOR:BOBBY ZULETA atenolol 50 mg tablet RxNorm: 827781 1 Tablet(s) PO daily TAKE 1 TABLET BY MO [facility] DAILY 05/07/2015 08/23/2017 Inactive Generic For:TENORMIN 50MG 05/04/2015 9:07:22 AM spironolactone 25 mg tablet RxNorm: 472622 1 Tablet(s) PO daily 05/06/2015 06/07/2016 Inactive venlafaxine ER 75 mg capsule,extended release 24 hr RxNorm: 438694 1 Capsule(s) PO daily 05/04/2015 06/28/2016 Inactive atenolol 50 mg tablet RxNorm: 674122 TAKE 1 TABLET BY MOUTH DAILY 05/04/2015 05/06/2015 Inactive Generic For:TENORMIN 50MG 05/04/2015 9: 07:22 AM Synthroid 150 mcg ta blet RxNorm: 901126 TAKE 1 TABLET BY MOUT H ONCE DAILY. 04/05/2015 09/26/2015 In active Generic For:SYNTHROID 150MCG TAB 2014 4:45:40 PM N O T I C E PRESCRIPTION PREVIOUSLY AUTHORIZED BY DOCTOR:BOBBY ZULETA Effexor 75 mg tablet RxNorm: 397532 1 Tablet(s) PO daily 04/05/2015 07/03/2015 Inactive Coumadin 5 mg tablet RxNorm: 308050 TAKE 1 AND 1/2 TABLETS BY MOUTH ONCE MYRANDA LY 04/04/2015 09/26/2015 In active Generic For:COUMADIN 5MG TAB N O T I C E PRESCRIPTION PREVIOUSLY AUTHORIZED BY DOCTOR:BOBBY ZULETA clonazepam 0.5 mg ta blet RxNorm: 814738 1 Tablet(s) PO BID 03/13/2015 11/05/2015 Inactive sodium bicarbonate 6 50 mg tablet RxNorm: 030742 2 Tablet(s) PO BID 03/08/2015 06/02/2015 Inactive allopurinol 300 mg t ablet RxNorm: 521454 TAKE 1 TABLET BY MOUT H ONCE DAILY. 03/05/2015 09/30/2015 In active N O T I C E PRESCRIPTION PREVIOUSLY A UTHORIZED BY DOCTOR:BOBBY ZULETA Plavix 75 mg tablet RxNorm: 446078 1 Tablet(s) PO daily 02/12/2015 09/09/2015 Inactive clonazepam 0.5 mg ta blet RxNorm: 622109 1 Tablet(s) PO BID 02/11/2015 03/11/2015 Inactive Carafate 1 gram tablet RxNorm: 998787 TAKE 1 TABLET TWICE A DAY FOR 30 DAYS 02/08/2015 02/07/2015 In active Generic For:CARAFATE 1GM 02/08/2015 12:3 6:39 PM Carafate 1 gram tablet RxNorm: 571627 Tablet(s) TAKE 1 TABLET TWICE A DAY FOR 30 DAYS 02/08/2015 09/01/2015 Inactive Generic For:CARAFATE 1GM 02/08/2015 12:3 6:39 PM potassium chloride 2 0 mEq/15 mL oral liquid RxNorm: 930898 30 Milliliter(s) (40m Eq) PO daily 02/05/2015 12/01/2015 Inactive atenolol 50 mg tablet RxNorm: 523851 1 Tablet(s) PO daily 02/04/2015 05/03/2015 Inactive [SAVINGS FOR NON-COVERED DRUGS -- BIN:00 3585, PCN: [id number], Group: XXXXX, ID# [id number], Questions: . THIS IS NOT INSURANCE.] potassium chloride 2 0 mEq/15 mL oral liquid RxNorm: 954763 30 Milliliter(s) (40m Eq) PO daily 01/08/2015 02/04/2015 Inactive potassium chloride 2 0 mEq/15 mL oral liquid RxNorm: 414466 30 Milliliter(s) (40m Eq) PO daily 12/07/2014 01/07/2015 Inactive atenolol 50 mg tablet RxNorm: 914532 1 Tablet(s) PO daily 11/09/2014 11/08/2014 Inactive atenolol 50 mg tablet RxNorm: 911372 1 Tablet(s) PO daily 11/09/2014 02/03/2015 Inactive [SAVINGS FOR NON-COVERED DRUGS -- BIN:00 5, PCN: [email or web address], Group: XXXXX, ID# [id number], Questions: . THIS IS NOT INSURANCE.] Voltaren 1 % topical gel RxNorm: 146734 TOP No St art Date Active verapamil ER (HS) 24 0 mg tablet,extended release 24 hr RxNorm: 343351 1 Tablet(s) PO daily No Start Date Active aspirin 81 mg tablet RxNorm: 452852 1 Tablet(s) PO daily No Start Date Active Zofran 4 mg tablet RxNorm: 289106 1 Tablet(s) PO PRN No Start Date Active B12 1000 mcg RxNorm: 1 Tablet(s) PO daily No Start Date Active magnesium oxide 400 mg capsule RxNorm: 211139 2 Capsule(s) PO BID No Start Date Active Synthroid 150 mcg ta blet RxNorm: 697724 1 Tablet(s) PO daily No Start Date 04/04/2015 Inactive Coumadin 5 mg tablet RxNorm: 184657 1 Tablet(s) PO daily No Start Date 04/03/2015 Inactive cranberry 1,000 mg c apsule RxNorm: 538288 1 Capsule(s) PO daily No Start Date 04/13/2018 Inactive allopurinol 300 mg t ablet RxNorm: 898727 1 Tablet(s) PO daily No Start Date 03/04/2015 Inactive Prilosec 20 mg capsu le,delayed release RxNorm: 460691 1 Capsule(s) PO PRN No Start Date 08/01/2015 Inactive potassium chloride 2 0 mEq/15 mL oral liquid RxNorm: 276985 30 Milliliter(s) (40m Eq) PO daily No Start Date 12/06/2014 Inactive atenolol 50 mg tablet RxNorm: 821262 1 Tablet(s) PO daily No Start Date 08/29/2017 Inactive Lipitor 40 mg tablet RxNorm: 240326 1 Tablet(s) PO daily No Start Date 09/19/2017 Inactive Effexor 75 mg tablet RxNorm: 042464 1 Tablet(s) PO daily No Start Date 04/04/2015 Inactive Carafate 1 gram tablet RxNorm: 705019 1 Tablet(s) PO BID No Start Date 02/07/2015 Inactive clonazepam 0.5 mg ta blet RxNorm: 652548 1 Tablet(s) PO BID No Start Date 02/10/2015 Inactive Plavix 75 mg tablet RxNorm: 586627 1 Tablet(s) PO daily No Start Date 02/11/2015 Inactive sodium bicarbonate 6 50 mg tablet RxNorm: 864978 2 Tablet(s) PO BID No Start Date 09/01/2015 Inactive Lovenox 30 mg/0.3 mL subcutaneous syringe RxNorm: 346744 0.3 Milliliter(s) SQ Q12H No Start Date 03/15/2017 Inactive Fish Oil 1,000 mg ca psule RxNorm: 1 Capsule(s) PO daily No Start Date 01/13/2016 Inactive Detrol LA 4 mg capsu le,extended release RxNorm: 292570 1 Capsule(s) PO daily No Start Date 06/02/2015 Inactive Medication Administered Medication Codes Instruc tions Start Date Status Kenalog 40 mg/mL suspension for injection RxNorm: 1425689 Milliliter 09/02/2018 No longer Active Immunizations Vaccine Codes Date Status SHINGARIX CVX: 121 03/23 completed Assessments Condition Codes Effectiv e Dates Mixed hyperlipidemia ICD-10: E78.2 ICD-9: 272.4 10/05/2018 Other acute sinusitis ICD-10: J01.80 ICD-9: 461.8 09/02/2018 Other allergic rhinitis ICD-10: J30. 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 ICD-9: [...] Code Item Item Code Result Date Pt Hil4237 PT 26.3 seconds 10/13/2018 Pt Gsu4296 INR 2.5 10/13/2018 Pt Icl2294 Low Intensity - 1.5-2.0 10/13/2018 Pt Yvi7080 Mod intensity - 2.0-3.0 10/13/2018 Pt Cjs4205 Hi intensity - 3.0-4.0 10/13/2018 Lipid Ord30 CHOL 180 mg/dL 10/07/2018 Lipid Ord30 HDL 74.0 mg/dl 10/07/2018 Lipid Ord30 TRIG 111 mg/dL 10/07/2018 Lipid Ord30 LDL 84 mg/dL 10/07/2018 Lipid Ord30 C/HDL 2.4 Ratio 10/07/2018 Pt Gjk0032 PT 38.1 seconds 10/07/2018 Pt Nng7415 INR 3.9 10/07/2018 Pt Ogo1915 Low Intensity - 1.5-2.0 10/07/2018 Pt Dxg3496 Mod intensity - 2.0-3.0 10/07/2018 Pt Ztv3016 Hi intensity - 3.0-4.0 10/07/2018 Tsh Ord6 TSH (3rd IS) 0.43 uIU/mL 09/02/2018 Comp Metabolic Xtc934 NA 136 mEq/L 09/02/2018 Comp Metabolic Isz266 K 4.1 mEq/L 09/02/2018 Comp Metabolic Ulg771 CL 103 mEq/L 09/02/2018 Comp Metabolic Kky962 CO2 20.0 mEq/L 09/02/2018 Comp Metabolic Xjm492 AN ION GAP 17 09/02/2018 Comp Metabolic Cvh159 GL UCOSE 124 mg/dL 09/02/2018 Comp Metabolic Rsq428 Cr eat 1.0 mg/dL 09/02/2018 Comp Metabolic Pxz296 eG FR 57 ml/min/1.73m2 09/02 Comp Metabolic Vii370 BUN 24 mg/dL 09/02/2018 Comp Metabolic Azi228 B/ C Ratio 23.8 Ratio 09/02/2018 Comp Metabolic Zwv218 CA LCIUM 9.5 mg/dL 09/02/2018 Comp Metabolic Puz066 AL K PHOS 64 U/L 09/02/2018 Comp Metabolic Bdw968 T(SGOT) 24 U/L 09/02/2018 Comp Metabolic Ahf898 AL T(SGPT) 23 U/L 09/02/2018 Comp Metabolic Wnb884 BI LI T 0.5 mg/dL 09/02/2018 Comp Metabolic Kxu122 AL BUMIN 4.2 g/dL 09/02/2018 Comp Metabolic Foy008 TP RO 7.4 g/dL 09/02/2018 Comp Metabolic Drw789 GL OB 3.2 g/dL 09/02/2018 Comp Metabolic Wdm068 A/ G Ratio 1.3 Ratio 09/02/2018 Comp Metabolic Jsy893 Os mo 277 mOsmo 09/02/2018 Pt Deb6119 PT 40.6 seconds 09/02/2018 Pt Fbb2287 INR 4.2 09/02/2018 Pt Ext4670 Low Intensity - 1.5-2.0 09/02/2018 Pt Dsa2017 Mod intensity - 2.0-3.0 09/02/2018 Pt Vks5285 Hi intensity - 3.0-4.0 09/02/2018 Free T4 Ijy726 FREE T4 1.51 ng/dL 09/02/2018 Magnesium Ord90 Mag 1.8 mg/dL 09/02/2018 Pt Qwv7714 PT 29.2 seconds 08/05/2018 Pt Aep8760 INR 2.8 08/05/2018 Pt Lpo4162 Low Intensity - 1.5-2.0 08/05/2018 Pt Pqj4321 Mod intensity - 2.0-3.0 08/05/2018 Pt Sey5344 Hi intensity - 3.0-4.0 08/05/2018 Pt Adt3395 PT 30.2 seconds 07/25/2018 Pt Ivi3939 INR 2.9 07/25/2018 Pt Lzx1341 Low Intensity - 1.5-2.0 07/25/2018 Pt Ion4667 Mod intensity - 2.0-3.0 07/25/2018 Pt Wsr5374 Hi intensity - 3.0-4.0 07/25/2018 Pt Jxk8232 PT 25.2 seconds 07/19/2018 Pt Vvs9083 INR 2.3 07/19/2018 Pt Ghf9699 Low Intensity - 1.5-2.0 07/19/2018 Pt Foi3958 Mod intensity - 2.0-3.0 07/19/2018 Pt Fwa3382 Hi intensity - 3.0-4.0 07/19/2018 Pt Iqx7949 PT 17.4 seconds 07/15/2018 Pt Wkr8810 INR 1.5 07/15/2018 Pt Czg2583 Low Intensity - 1.5-2.0 07/15/2018 Pt Nin6077 Mod intensity - 2.0-3.0 07/15/2018 Pt Jyp9791 Hi intensity - 3.0-4.0 07/15/2018 Pt Ido2464 PT 17.8 seconds 07/08/2018 Pt Uog6790 INR 1.5 07/08/2018 Pt Nxz2252 Low Intensity - 1.5-2.0 07/08/2018 Pt Ejs0202 Mod intensity - 2.0-3.0 07/08/2018 Pt Gqu7675 Hi intensity - 3.0-4.0 07/08/2018 Pt Ohb5533 PT 19.2 seconds 07/01/2018 Pt Urn0142 INR 1.7 07/01/2018 Pt Kpr9088 Low Intensity - 1.5-2.0 07/01/2018 Pt Eff9859 Mod intensity - 2.0-3.0 07/01/2018 Pt Fdm2644 Hi intensity - 3.0-4.0 07/01/2018 Pt Ifr0512 PT 17.4 seconds 06/23/2018 Pt Hmb4548 INR 1.5 06/23/2018 Pt Eor6378 Low Intensity - 1.5-2.0 06/23/2018 Pt Ahc0367 Mod intensity - 2.0-3.0 06/23/2018 Pt Qvn0759 Hi intensity - 3.0-4.0 06/23/2018 Pt Iea8047 PT 18.4 seconds 06/17/2018 Pt Nyl3659 INR 1.6 06/17/2018 Pt Cdq3828 Low Intensity - 1.5-2.0 06/17/2018 Pt Zgi6824 Mod intensity - 2.0-3.0 06/17/2018 Pt Jxh0509 Hi intensity - 3.0-4.0 06/17/2018 Sed Rate [...] 30.4 pg 06/08/2018 Cbc With Differential Ord2 Hubbard% 9.4 % 06/08/2018 Cbc With Differential Ord2 [...] 1.20 K/ul 06/08/2018 Cbc With Differential Ord2 Hubbard ABS# 0.5 K/ul 06/08/2018 Cbc With Differential Ord2 Eos ABS# 0.1 K/ul 06/08/2018 Cbc With Differential Ord2 Baso ABS# 0.1 K/ul 06/08/2018 C-Reactive Protein Qnt Crqnt CRP 0.1 mg/dl 06/08/2018 Pt Win1415 PT 17.6 seconds 06/08/2018 Pt Mcu8462 INR 1.5 06/08/2018 Pt Yme3007 Low Intensity - 1.5-2.0 06/08/2018 Pt Mcp8630 Mod intensity - 2.0-3.0 06/08/2018 Pt Hgg5881 Hi intensity - 3.0-4.0 06/08/2018 Pt Jzj5347 PT 16.8 seconds 05/10/2018 Pt Mub6201 INR 1.4 05/10/2018 Pt Gpb1123 Low Intensity - 1.5-2.0 05/10/2018 Pt Sfk0469 Mod intensity - 2.0-3.0 05/10/2018 Pt Jlt7574 Hi intensity - 3.0-4.0 05/10/2018 Pt Fxt8454 PT 16.7 seconds 05/04/2018 Pt Anc4418 INR 1.4 05/04/2018 Pt Uwl4624 Low Intensity - 1.5-2.0 05/04/2018 Pt Pol0067 Mod intensity - 2.0-3.0 05/04/2018 Pt Bmn6490 Hi intensity - 3.0-4.0 05/04/2018 Free T4 Uuo607 FREE T4 1.09 ng/dL 04/14/2018 Tsh Ord6 TSH (3rd IS) 2.36 uIU/mL 04/14/2018 Pt Irx4362 PT 20.3 seconds 04/14/2018 Pt Ioo7762 INR 1.8 04/14/2018 Pt Haw7314 Low Intensity - 1.5-2.0 04/14/2018 Pt Tkw8415 Mod intensity - 2.0-3.0 04/14/2018 Pt Rde1218 Hi intensity - 3.0-4.0 04/14/2018 Lipid Ord30 CHOL 149 mg/dL 04/14/2018 Lipid Ord30 HDL 49.0 mg/dl 04/14/2018 Lipid Ord30 TRIG 161 mg/dL 04/14/2018 Lipid Ord30 LDL 68 mg/dL 04/14/2018 Lipid Ord30 C/HDL 3.0 Ratio 04/14/2018 %Hba1C Kvc212 % HbA1c 19361-6 5.9 % 04/14/2018 %Hba1C Qbn755 Gluc Ave 123 mg/dL 04/14/2018 Comp Metabolic Tlq785 NA 140 mEq/L 04/14/2018 Comp Metabolic Ztb501 K 4.1 mEq/L 04/14/2018 Comp Metabolic Nlg053 CL 105 mEq/L 04/14/2018 Comp Metabolic Ccq949 CO2 28.0 mEq/L 04/14/2018 Comp Metabolic Oaw824 AN ION GAP 11 04/14/2018 Comp Metabolic Qmf201 GL UCOSE 112 mg/dL 04/14/2018 Comp Metabolic Unu696 Cr eat 1.0 mg/dL 04/14/2018 Comp Metabolic Mna590 eG FR 58 ml/min/1.73m2 04/14 Comp Metabolic Aol991 BUN 20 mg/dL 04/14/2018 Comp Metabolic Mur010 B/ C Ratio 20.2 Ratio 04/14/2018 Comp Metabolic Ssx159 CA LCIUM 10.0 mg/dL 04/14/2018 Comp Metabolic Vpe985 AL K PHOS 51 U/L 04/14/2018 Comp Metabolic Wvb796 T(SGOT) 24 U/L 04/14/2018 Comp Metabolic Oii128 AL T(SGPT) 21 U/L 04/14/2018 Comp Metabolic Yjm382 BI LI T 0.8 mg/dL 04/14/2018 Comp Metabolic Bwl141 AL BUMIN 4.2 g/dL 04/14/2018 Comp Metabolic Kzn269 TP RO 7.1 g/dL 04/14/2018 Comp Metabolic Qrt960 GL OB 2.9 g/dL 04/14/2018 Comp Metabolic Ksu363 A/ G Ratio 1.5 Ratio 04/14/2018 Comp Metabolic Mbm247 Os mo 283 mOsmo 04/14/2018 Cbc With [...] 30.7 pg 04/14/2018 Cbc With Differential Ord2 Hubbard% 10.6 % 04/14/2018 Cbc With Differential Ord2 [...] 1.18 K/ul 04/14/2018 Cbc With Differential Ord2 Hubbard ABS# 0.5 K/ul 04/14/2018 Cbc With Differential Ord2 Eos ABS# 0.2 K/ul 04/14/2018 Cbc With Differential Ord2 Baso ABS# 0.1 K/ul 04/14/2018 Pt Qqv9044 PT 29.3 seconds 02/11/2018 Pt Inb2515 INR 2.8 02/11/2018 Pt Acg1855 Low Intensity - 1.5-2.0 02/11/2018 Pt Zfl3044 Mod intensity - 2.0-3.0 02/11/2018 Pt Aej6150 Hi intensity - 3.0-4.0 02/11/2018 Comp Metabolic Mrk654 NA 141 mEq/L 01/05/2018 Comp Metabolic Kyb403 K 3.7 mEq/L 01/05/2018 Comp Metabolic Vik231 CL 102 mEq/L 01/05/2018 Comp Metabolic Aan932 CO2 29.0 mEq/L 01/05/2018 Comp Metabolic Akf702 AN ION GAP 14 01/05/2018 Comp Metabolic Gxg283 GL UCOSE 136 mg/dL 01/05/2018 Comp Metabolic Ckb993 Cr eat 1.0 mg/dL 01/05/2018 Comp Metabolic Zmk629 eG FR 61 ml/min/1.73m2 01/05 Comp Metabolic Ybm247 BUN 22 mg/dL 01/05/2018 Comp Metabolic Xoq809 B/ C Ratio 22.9 Ratio 01/05/2018 Comp Metabolic Oxz500 CA LCIUM 9.7 mg/dL 01/05/2018 Comp Metabolic Hbp993 AL K PHOS 57 U/L 01/05/2018 Comp Metabolic Ros451 T(SGOT) 21 U/L 01/05/2018 Comp Metabolic Mmn640 AL T(SGPT) 19 U/L 01/05/2018 Comp Metabolic Haw477 BI LI T 0.9 mg/dL 01/05/2018 Comp Metabolic Jso646 AL BUMIN 4.1 g/dL 01/05/2018 Comp Metabolic Cny570 TP RO 7.1 g/dL 01/05/2018 Comp Metabolic Ipk510 GL OB 3.0 g/dL 01/05/2018 Comp Metabolic Lgc075 A/ G Ratio 1.4 Ratio 01/05/2018 Comp Metabolic Csx670 Os mo 287 mOsmo 01/05/2018 Free T4 Ebj226 FREE T4 1.05 ng/dL 01/05/2018 %Hba1C Wkb876 % HbA1c 01396-3 6.0 % 01/05/2018 %Hba1C Hjl493 Gluc Ave 126 mg/dL 01/05/2018 Cbc With [...] 30.6 pg 01/05/2018 Cbc With Differential Ord2 Hubbard% 10.5 % 01/05/2018 Cbc With Differential Ord2 [...] 1.27 K/ul 01/05/2018 Cbc With Differential Ord2 Hubbard ABS# 0.5 K/ul 01/05/2018 Cbc With Differential Ord2 Eos ABS# 0.2 K/ul 01/05/2018 Cbc With Differential Ord2 Baso ABS# 0.1 K/ul 01/05/2018 Pt Qks1907 PT 20.7 seconds 01/05/2018 Pt Inn9217 INR 1.8 01/05/2018 Pt Dxm8247 Low Intensity - 1.5-2.0 01/05/2018 Pt Lgi8299 Mod intensity - 2.0-3.0 01/05/2018 Pt Jkv7566 Hi intensity - 3.0-4.0 01/05/2018 Tsh Ord6 TSH (3rd IS) 2.34 uIU/mL 01/05/2018 Lipid Ord30 CHOL 156 mg/dL 01/05/2018 Lipid Ord30 HDL 48.0 mg/dl 01/05/2018 Lipid Ord30 TRIG 207 mg/dL 01/05/2018 Lipid Ord30 LDL 67 mg/dL 01/05/2018 Lipid Ord30 C/HDL 3.3 Ratio 01/05/2018 Pt Vvm3840 PT 28.3 seconds 11/26/2017 Pt Fyd8365 INR 2.6 11/26/2017 Pt Aym5972 Low Intensity - 1.5-2.0 11/26/2017 Pt Onb4652 Mod intensity - 2.0-3.0 11/26/2017 Pt Ndr7049 Hi intensity - 3.0-4.0 11/26/2017 Pt Btn4110 PT 36.5 seconds 11/19/2017 Pt Afn2768 INR 3.6 11/19/2017 Pt Phe9708 Low Intensity - 1.5-2.0 11/19/2017 Pt Wtl9929 Mod intensity - 2.0-3.0 11/19/2017 Pt Pqz8428 Hi intensity - 3.0-4.0 11/19/2017 Pt Rpv1715 PT 22.9 seconds 10/15/2017 Pt Bbc3030 INR 2.0 10/15/2017 Pt Jkn7375 Low Intensity - 1.5-2.0 10/15/2017 Pt Nlw2513 Mod intensity - 2.0-3.0 10/15/2017 Pt Cyj2469 Hi intensity - 3.0-4.0 10/15/2017 Pt Lgo5775 PT 25.9 seconds 10/01/2017 Pt Olb9786 INR 2.4 10/01/2017 Pt Pkq9344 Low Intensity - 1.5-2.0 10/01/2017 Pt Iow8828 Mod intensity - 2.0-3.0 10/01/2017 Pt Cgs3627 Hi intensity - 3.0-4.0 10/01/2017 Pt Tgz8471 PT 20.6 seconds 09/24/2017 Pt Ylg0790 INR 1.8 09/24/2017 Pt Vnt6369 Low Intensity - 1.5-2.0 09/24/2017 Pt Duo8880 Mod intensity - 2.0-3.0 09/24/2017 Pt Qtp8498 Hi intensity - 3.0-4.0 09/24/2017 Pt Xfl1292 PT 21.0 seconds 09/15/2017 Pt Jsd3706 INR 1.8 09/15/2017 Pt Vzw1933 Low Intensity - 1.5-2.0 09/15/2017 Pt Tjf7434 Mod intensity - 2.0-3.0 09/15/2017 Pt Ayu8853 Hi intensity - 3.0-4.0 09/15/2017 Pt Jlg7089 PT 19.0 seconds 09/03/2017 Pt Xgd9105 INR 1.6 09/03/2017 Pt Jue3058 Low Intensity - 1.5-2.0 09/03/2017 Pt Gdm6463 Mod intensity - 2.0-3.0 09/03/2017 Pt Plk0177 Hi intensity - 3.0-4.0 09/03/2017 Pt Any0387 PT 17.6 seconds 08/23/2017 Pt Pqb4060 INR 1.5 08/23/2017 Pt Wdc8148 Low Intensity - 1.5-2.0 08/23/2017 Pt Cnc3629 Mod intensity - 2.0-3.0 08/23/2017 Pt Cnx1491 Hi intensity - 3.0-4.0 08/23/2017 Pt Xze7789 PT 12.7 seconds 08/20/2017 Pt Nwa0292 INR 1.0 08/20/2017 Pt Ukj9604 Low Intensity - 1.5-2.0 08/20/2017 Pt Hoc5030 Mod intensity - 2.0-3.0 08/20/2017 Pt Xis6958 Hi intensity - 3.0-4.0 08/20/2017 Pt Kjo9633 PT 12.9 seconds 08/17/2017 Pt Xbh6538 INR 1.0 08/17/2017 Pt Agi6863 Low Intensity - 1.5-2.0 08/17/2017 Pt Ecw3227 Mod intensity - 2.0-3.0 08/17/2017 Pt Kep5733 Hi intensity - 3.0-4.0 08/17/2017 Pt Bnx0447 PT 18.5 seconds 08/10/2017 Pt Vsz9918 INR 1.6 08/10/2017 Pt Www6668 Low Intensity - 1.5-2.0 08/10/2017 Pt Asg8594 Mod intensity - 2.0-3.0 08/10/2017 Pt Vjq0933 Hi intensity - 3.0-4.0 08/10/2017 Tsh Ord6 [...] 29.3 pg 05/27/2017 Cbc With Differential Ord2 Hubbard% 8.1 % 05/27/2017 Cbc With Differential Ord2 [...] 1.11 K/ul 05/27/2017 Cbc With Differential Ord2 Hubbard ABS# 0.6 K/ul 05/27/2017 Cbc With Differential Ord2 Eos ABS# 0.2 K/ul 05/27/2017 Cbc With Differential Ord2 Baso ABS# 0.1 K/ul 05/27/2017 Pt Rut5815 PT 28.2 seconds 05/27/2017 Pt Nih8825 INR 2.6 05/27/2017 Pt Acl9305 Low Intensity - 1.5-2.0 05/27/2017 Pt Ymn7510 Mod intensity - 2.0-3.0 05/27/2017 Pt Eai6297 Hi intensity - 3.0-4.0 05/27/2017 Lipid Ord30 CHOL 167 mg/dL 05/27/2017 Lipid Ord30 HDL 49.0 mg/dl 05/27/2017 Lipid Ord30 TRIG 347 mg/dL 05/27/2017 Lipid Ord30 LDL 49 mg/dL 05/27/2017 Lipid Ord30 C/HDL 3.4 Ratio 05/27/2017 Magnesium Ord90 Mag 1.4 mg/dL 05/27/2017 %Hba1C Rbc782 % HbA1c 75993-0 5.9 % 05/27/2017 %Hba1C Pgj542 Gluc Ave 123 mg/dL 05/27/2017 Comp Metabolic Lzd506 NA 138 mEq/L 05/27/2017 Comp Metabolic Vhd533 K 4.1 mEq/L 05/27/2017 Comp Metabolic Qmj367 CL 101 mEq/L 05/27/2017 Comp Metabolic Qzd945 CO2 31.0 mEq/L 05/27/2017 Comp Metabolic Fjb459 AN ION GAP 10 05/27/2017 Comp Metabolic Uaj122 GL UCOSE 117 mg/dL 05/27/2017 Comp Metabolic Maw822 Cr eat 0.9 mg/dL 05/27/2017 Comp Metabolic Als031 eG FR 62 ml/min/1.73m2 05/27 Comp Metabolic Gbc229 BUN 25 mg/dL 05/27/2017 Comp Metabolic Nij650 B/ C Ratio 26.6 Ratio 05/27/2017 Comp Metabolic Owg056 CA LCIUM 9.5 mg/dL 05/27/2017 Comp Metabolic Jpu520 AL K PHOS 73 U/L 05/27/2017 Comp Metabolic Cjh801 T(SGOT) 18 U/L 05/27/2017 Comp Metabolic Eww073 AL T(SGPT) 12 U/L 05/27/2017 Comp Metabolic Zwv997 BI LI T 0.5 mg/dL 05/27/2017 Comp Metabolic Slu544 AL BUMIN 4.1 g/dL 05/27/2017 Comp Metabolic Nyh021 TP RO 7.1 g/dL 05/27/2017 Comp Metabolic Tkc653 GL OB 3.0 g/dL 05/27/2017 Comp Metabolic Qlr107 A/ G Ratio 1.3 Ratio 05/27/2017 Comp Metabolic Yqj578 Os mo 281 mOsmo 05/27/2017 Free T4 Wtn612 FREE T4 0.91 ng/dL 05/27/2017 Pt Duy8754 PT 29.2 seconds 04/16/2017 Pt Tra6963 INR 2.7 04/16/2017 Pt Dcb8950 Low Intensity - 1.5-2.0 04/16/2017 Pt Ptx2074 Mod intensity - 2.0-3.0 04/16/2017 Pt Ibb9973 Hi intensity - 3.0-4.0 04/16/2017 Pt Njx4575 PT 30.7 seconds 03/31/2017 Pt Hmx6659 INR 2.9 03/31/2017 Pt Cqh9926 Low Intensity - 1.5-2.0 03/31/2017 Pt Gpj0616 Mod intensity - 2.0-3.0 03/31/2017 Pt Gnw4238 Hi intensity - 3.0-4.0 03/31/2017 Pt Lbb9013 PT 21.3 seconds 03/26/2017 Pt Pdk2562 INR 1.9 03/26/2017 Pt Cre4329 Low Intensity - 1.5-2.0 03/26/2017 Pt Xyv6815 Mod intensity - 2.0-3.0 03/26/2017 Pt Eob6661 Hi intensity - 3.0-4.0 03/26/2017 Pt Spx8435 PT 19.8 seconds 03/22/2017 Pt Zjj1250 INR 1.7 03/22/2017 Pt Rrv3157 Low Intensity - 1.5-2.0 03/22/2017 Pt Dxf6204 Mod intensity - 2.0-3.0 03/22/2017 Pt Elb5574 Hi intensity - 3.0-4.0 03/22/2017 Pt Kii0885 PT 15.6 seconds 03/19/2017 Pt Gal7122 INR 1.3 03/19/2017 Pt Pyg8016 Low Intensity - 1.5-2.0 03/19/2017 Pt Mci8536 Mod intensity - 2.0-3.0 03/19/2017 Pt Ole0238 Hi intensity - 3.0-4.0 03/19/2017 Pt Kao4151 PT 13.7 seconds 03/15/2017 Pt Erq7844 INR 1.1 03/15/2017 Pt Hsg7277 Low Intensity - 1.5-2.0 03/15/2017 Pt Lwy2917 Mod intensity - 2.0-3.0 03/15/2017 Pt Wvr1466 Hi intensity - 3.0-4.0 03/15/2017 Pt Ody7257 PT 25.8 seconds 01/28/2017 Pt Ljs0235 INR 2.4 01/28/2017 Pt Kbj6544 Low Intensity - 1.5-2.0 01/28/2017 Pt Tcs5984 Mod intensity - 2.0-3.0 01/28/2017 Pt Tis8972 Hi intensity - 3.0-4.0 01/28/2017 %Hba1C Cov010 % HbA1c 42043-7 6.4 % 10/23/2016 %Hba1C Vad829 Gluc Ave 137 mg/dL 10/23/2016 Comp Metabolic Rmf960 NA 138 mEq/L 10/23/2016 Comp Metabolic Wgf669 K 3.4 mEq/L 10/23/2016 Comp Metabolic Jon034 CL 100 mEq/L 10/23/2016 Comp Metabolic Xdv048 CO2 30.0 mEq/L 10/23/2016 Comp Metabolic Wsx280 AN ION GAP 11 10/23/2016 Comp Metabolic Sag769 GL UCOSE 139 mg/dL 10/23/2016 Comp Metabolic Itr480 Cr eat 0.9 mg/dL 10/23/2016 Comp Metabolic Oho688 eG FR 62 ml/min/1.73m2 10/23 Comp Metabolic Aiu509 BUN 22 mg/dL 10/23/2016 Comp Metabolic Oou432 B/ C Ratio 23.4 Ratio 10/23/2016 Comp Metabolic Swu134 CA LCIUM 8.7 mg/dL 10/23/2016 Comp Metabolic Ueu328 AL K PHOS 66 U/L 10/23/2016 Comp Metabolic Mgx741 T(SGOT) 20 U/L 10/23/2016 Comp Metabolic Dux253 AL T(SGPT) 10 U/L 10/23/2016 Comp Metabolic Qol688 BI LI T 0.5 mg/dL 10/23/2016 Comp Metabolic Cor686 AL BUMIN 3.5 g/dL 10/23/2016 Comp Metabolic Wsq900 TP RO 6.3 g/dL 10/23/2016 Comp Metabolic Vuf610 GL OB 2.8 g/dL 10/23/2016 Comp Metabolic Zrr363 A/ G Ratio 1.3 Ratio 10/23/2016 Comp Metabolic Rzg157 Os mo 281 mOsmo 10/23/2016 Pt Xwp0473 PT 26.8 seconds 10/23/2016 Pt Fed9974 INR 2.7 10/23/2016 Pt Ofq5151 Low Intensity - 1.5-2.0 10/23/2016 Pt Trv9772 Mod intensity - 2.0-3.0 10/23/2016 Pt Xaz6880 Hi intensity - 3.0-4.0 10/23/2016 Pt Yxj1886 PT 28.3 seconds 09/25/2016 Pt Ixz2402 INR 2.8 09/25/2016 Pt Dot8593 Low Intensity - 1.5-2.0 09/25/2016 Pt Vep4916 Mod intensity - 2.0-3.0 09/25/2016 Pt Kji1027 Hi intensity - 3.0-4.0 09/25/2016 Metabolic Ord15 [...] Metabolic Ord15 CALCIUM 8.8 mg/dL 09/25/2016 Pt Dws8627 PT 30.6 seconds 09/11/2016 Pt Aqd2083 INR 3.2 09/11/2016 Pt Ect1070 Low Intensity - 1.5-2.0 09/11/2016 Pt Dac8776 Mod intensity - 2.0-3.0 09/11/2016 Pt Kkv6514 Hi intensity - 3.0-4.0 09/11/2016 Comp Metabolic Sqb282 NA 138 mEq/L 09/11/2016 Comp Metabolic Mwm992 K 4.4 mEq/L 09/11/2016 Comp Metabolic Zpr512 CL 103 mEq/L 09/11/2016 Comp Metabolic Yst803 CO2 31.0 mEq/L 09/11/2016 Comp Metabolic Wgl738 AN ION GAP 8 09/11/2016 Comp Metabolic Xcf550 GL UCOSE 146 mg/dL 09/11/2016 Comp Metabolic Bhx398 Cr eat 1.0 mg/dL 09/11/2016 Comp Metabolic Bob663 eG FR 60 ml/min/1.73m2 09/11 Comp Metabolic Ire112 BUN 16 mg/dL 09/11/2016 Comp Metabolic Yjl435 B/ C Ratio 16.5 Ratio 09/11/2016 Comp Metabolic Tvb819 CA LCIUM 8.7 mg/dL 09/11/2016 Comp Metabolic Fgr182 AL K PHOS 52 U/L 09/11/2016 Comp Metabolic Hpm370 T(SGOT) 19 U/L 09/11/2016 Comp Metabolic Ewv256 AL T(SGPT) 11 U/L 09/11/2016 Comp Metabolic Dbt335 BI LI T 0.7 mg/dL 09/11/2016 Comp Metabolic Tyy409 AL BUMIN 3.3 g/dL 09/11/2016 Comp Metabolic Uqr205 TP RO 5.8 g/dL 09/11/2016 Comp Metabolic Lcw740 GL OB 2.5 g/dL 09/11/2016 Comp Metabolic Yiq280 A/ G Ratio 1.3 Ratio 09/11/2016 Comp Metabolic Axa470 Os mo 280 mOsmo 09/11/2016 C-Reactive Protein Qnt Crqnt CRP 0.1 mg/dl 08/21/2016 Comp Metabolic Gmu085 NA 139 mEq/L 08/21/2016 Comp Metabolic Zjj992 K 4.1 mEq/L 08/21/2016 Comp Metabolic Ghx253 CL 102 mEq/L 08/21/2016 Comp Metabolic Aet134 CO2 30.0 mEq/L 08/21/2016 Comp Metabolic Avx573 AN ION GAP 11 08/21/2016 Comp Metabolic Dhp609 GL UCOSE 148 mg/dL 08/21/2016 Comp Metabolic Exk760 Cr eat 1.0 mg/dL 08/21/2016 Comp Metabolic Hec463 eG FR 55 ml/min/1.73m2 08/21 Comp Metabolic Zdg041 BUN 21 mg/dL 08/21/2016 Comp Metabolic Cav492 B/ C Ratio 20.2 Ratio 08/21/2016 Comp Metabolic Sqy949 CA LCIUM 9.4 mg/dL 08/21/2016 Comp Metabolic Yby744 AL K PHOS 63 U/L 08/21/2016 Comp Metabolic Rwy780 T(SGOT) 23 U/L 08/21/2016 Comp Metabolic Jcl284 AL T(SGPT) 16 U/L 08/21/2016 Comp Metabolic Znm098 BI LI T 0.6 mg/dL 08/21/2016 Comp Metabolic Tok370 AL BUMIN 3.9 g/dL 08/21/2016 Comp Metabolic Nfe318 TP RO 6.8 g/dL 08/21/2016 Comp Metabolic Wuv599 GL OB 2.9 g/dL 08/21/2016 Comp Metabolic Rba433 A/ G Ratio 1.4 Ratio 08/21/2016 Comp Metabolic Sen905 Os mo 283 mOsmo 08/21/2016 Sed Rate Ord21 ESR 16 mm/hr 08/21/2016 Pt Stg2365 PT 27.2 seconds 08/21/2016 Pt Orl4739 INR 2.7 08/21/2016 Pt Vqn7942 Low Intensity - 1.5-2.0 08/21/2016 Pt Inr6343 Mod intensity - 2.0-3.0 08/21/2016 Pt Ktu7078 Hi intensity - 3.0-4.0 08/21/2016 Magnesium Ord90 Mag 1.9 mg/dL 08/21/2016 Pt Exp5112 PT 25.9 seconds 06/17/2016 Pt Tkp5813 INR 2.5 06/17/2016 Pt Xuv2075 Low Intensity - 1.5-2.0 06/17/2016 Pt Qop7158 Mod intensity - 2.0-3.0 06/17/2016 Pt Dfa3542 Hi intensity - 3.0-4.0 06/17/2016 Tsh Ord6 hTSH II 2.13 uIU/mL 06/08/2016 Free T4 Pnd079 FREE T4 0.79 ng/dL 06/08/2016 Cbc With [...] 26.8 pg 06/08/2016 Cbc With Differential Ord2 Hubbard% 12.0 % 06/08/2016 Cbc With Differential Ord2 [...] 1.40 K/ul 06/08/2016 Cbc With Differential Ord2 Hubbard ABS# 0.7 K/ul 06/08/2016 Cbc With Differential Ord2 Eos ABS# 0.3 K/ul 06/08/2016 Cbc With Differential Ord2 Baso ABS# 0.1 K/ul 06/08/2016 %Hba1C Lks087 % HbA1c 54045-7 6.2 % 06/08/2016 %Hba1C Pts030 Gluc Ave 131 mg/dL 06/08/2016 Comp Metabolic Emc090 NA 138 mEq/L 06/08/2016 Comp Metabolic Ifs291 K 3.9 mEq/L 06/08/2016 Comp Metabolic Cmu441 CL 105 mEq/L 06/08/2016 Comp Metabolic Gkw578 CO2 27.0 mEq/L 06/08/2016 Comp Metabolic Ude527 AN ION GAP 10 06/08/2016 Comp Metabolic Ovk313 GL UCOSE 127 mg/dL 06/08/2016 Comp Metabolic Exb237 Cr eat 1.0 mg/dL 06/08/2016 Comp Metabolic Rkp920 eG FR 59 ml/min/1.73m2 06/08 Comp Metabolic Xdm278 BUN 19 mg/dL 06/08/2016 Comp Metabolic Lcw041 B/ C Ratio 19.4 Ratio 06/08/2016 Comp Metabolic Jff438 CA LCIUM 9.2 mg/dL 06/08/2016 Comp Metabolic Ldt601 AL K PHOS 77 U/L 06/08/2016 Comp Metabolic Vml486 T(SGOT) 19 U/L 06/08/2016 Comp Metabolic Cdm623 AL T(SGPT) 13 U/L 06/08/2016 Comp Metabolic Fsp238 BI LI T 0.5 mg/dL 06/08/2016 Comp Metabolic Ntc559 AL BUMIN 3.8 g/dL 06/08/2016 Comp Metabolic Pdy899 TP RO 6.6 g/dL 06/08/2016 Comp Metabolic Qqr867 GL OB 2.8 g/dL 06/08/2016 Comp Metabolic Btr754 A/ G Ratio 1.4 Ratio 06/08/2016 Comp Metabolic Wku648 Os mo 280 mOsmo 06/08/2016 Pt Oba4259 PT 36.1 seconds 06/08/2016 Pt Ahe0034 INR 3.9 06/08/2016 Pt Xvi0287 Low Intensity - 1.5-2.0 06/08/2016 Pt Iws6705 Mod intensity - 2.0-3.0 06/08/2016 Pt Ety2019 Hi intensity - 3.0-4.0 06/08/2016 Lipid Ord30 CHOL 149 mg/dL 06/08/2016 Lipid Ord30 HDL 46.0 mg/dl 06/08/2016 Lipid Ord30 TRIG 279 mg/dL 06/08/2016 Lipid Ord30 LDL 47 mg/dL 06/08/2016 Lipid Ord30 C/HDL 3.2 Ratio 06/08/2016 Pt Xgs4265 PT 30.9 seconds 02/12/2016 Pt Ecz3642 INR 3.2 02/12/2016 Pt Umf2373 Low Intensity - 1.5-2.0 02/12/2016 Pt Ufh3194 Mod intensity - 2.0-3.0 02/12/2016 Pt Nns3932 Hi intensity - 3.0-4.0 02/12/2016 Free T4 Lpe261 FREE T4 1.24 ng/dL 09/27/2015 %Hba1C Cpr568 % HbA1c 20292-3 6.4 % 09/27/2015 %Hba1C Vpw873 Gluc Ave 137 mg/dL 09/27/2015 Tsh Ord6 hTSH II 0.37 uIU/mL 09/27/2015 Pt Hgu9666 PT 26.2 seconds 09/27/2015 Pt Eet2801 INR 2.5 09/27/2015 Pt Cah5541 Low Intensity - 1.5-2.0 09/27/2015 Pt Stv6048 Mod intensity - 2.0-3.0 09/27/2015 Pt Upu2843 Hi intensity - 3.0-4.0 09/27/2015 Pt Yze8308 PT 27.6 seconds 2015 Pt Nxj2571 INR 2.7 2015 Pt Rbe9792 Low Intensity - 1.5-2.0 2015 Pt Rhd0266 Mod intensity - 2.0-3.0 2015 Pt Lev2102 Hi intensity - 3.0-4.0 2015 %Hba1C Cnb480 % HbA1c 37560-3 6.1 % 06/11/2015 %Hba1C Idy193 Gluc Ave 128 mg/dL 06/11/2015 Cbc With [...] Ord2 RDW 15.8 % 06/10/2015 Comp Metabolic Aqw603 NA 139 mEq/L 06/10/2015 Comp Metabolic Nbu533 K 4.1 mEq/L 06/10/2015 Comp Metabolic Xjz156 CL 105 mEq/L 06/10/2015 Comp Metabolic Gsk556 CO2 27.0 mEq/L 06/10/2015 Comp Metabolic Glc930 AN ION GAP 11 06/10/2015 Comp Metabolic Asu710 GL UCOSE 127 mg/dL 06/10/2015 Comp Metabolic Lji831 Cr eat 1.0 mg/dL 06/10/2015 Comp Metabolic Pmq731 eG FR 59 ml/min/1.73m2 06/10 Comp Metabolic Lep048 BUN 21 mg/dL 06/10/2015 Comp Metabolic Ruz777 B/ C Ratio 21.2 Ratio 06/10/2015 Comp Metabolic Ubf874 CA LCIUM 9.2 mg/dL 06/10/2015 Comp Metabolic Giw244 AL K PHOS 87 U/L 06/10/2015 Comp Metabolic Yvm240 T(SGOT) 20 U/L 06/10/2015 Comp Metabolic Sbx945 AL T(SGPT) 17 U/L 06/10/2015 Comp Metabolic Dzd191 BI LI T 0.4 mg/dL 06/10/2015 Comp Metabolic Sii772 AL BUMIN 4.1 g/dL 06/10/2015 Comp Metabolic Azw819 TP RO 7.2 g/dL 06/10/2015 Comp Metabolic Nwf598 GL OB 3.1 g/dL 06/10/2015 Comp Metabolic Hcj372 A/ G Ratio 1.3 Ratio 06/10/2015 Comp Metabolic Zpk647 Os mo 282 mOsmo 06/10/2015 Tsh Ord6 hTSH II 0.86 uIU/mL 06/10/2015 Lipid Ord30 CHOL 161 mg/dL 06/10/2015 Lipid Ord30 HDL 49.0 mg/dl 06/10/2015 Lipid Ord30 TRIG 208 mg/dL 06/10/2015 Lipid Ord30 LDL 70 mg/dL 06/10/2015 Lipid Ord30 C/HDL 3.3 Ratio 06/10/2015 Pt Byl0819 PT 25.0 seconds 04/09/2015 Pt Sqt1501 INR 2.4 04/09/2015 Pt Yei9172 Low Intensity - 1.5-2.0 04/09/2015 Pt Met2347 Mod intensity - 2.0-3.0 04/09/2015 Pt Jvy5769 Hi intensity - 3.0-4.0 04/09/2015 Free T4 Haa215 FREE T4 1.05 ng/dL 01/22/2015 Pt Syw7253 PT 27.2 seconds 01/22/2015 Pt Cvz9004 INR 2.6 01/22/2015 Pt Nsy6678 Low Intensity - 1.5-2.0 01/22/2015 Pt Dpe1930 Mod intensity - 2.0-3.0 01/22/2015 Pt Ttz9184 Hi intensity - 3.0-4.0 01/22/2015 Cbc With [...] Differential Ord2 RDW 15.2 % 01/22/2015 B12 Osa559 B12 402.00 pg/ml 01/22/2015 Tsh Ord6 hTSH II 0.65 uIU/mL 01/22/2015 Lipid Ord30 CHOL 166 mg/dL 01/22/2015 Lipid Ord30 HDL 48.0 mg/dl 01/22/2015 Lipid Ord30 TRIG 264 mg/dL 01/22/2015 Lipid Ord30 LDL 65 mg/dL 01/22/2015 Lipid Ord30 C/HDL 3.5 Ratio 01/22/2015 Comp Metabolic Iml015 NA 138 mEq/L 01/22/2015 Comp Metabolic Bkc695 K 4.1 mEq/L 01/22/2015 Comp Metabolic Xmw538 CL 104 mEq/L 01/22/2015 Comp Metabolic Wgp965 CO2 29.0 mEq/L 01/22/2015 Comp Metabolic Kjh219 AN ION GAP 9 01/22/2015 Comp Metabolic Row109 GL UCOSE 106 mg/dL 01/22/2015 Comp Metabolic Yhl340 Cr eat 0.9 mg/dL 01/22/2015 Comp Metabolic Rxp506 eG FR 63 ml/min/1.73m2 01/22 Comp Metabolic Yol578 BUN 21 mg/dL 01/22/2015 Comp Metabolic Mtb358 B/ C Ratio 22.3 Ratio 01/22/2015 Comp Metabolic Tmq537 CA LCIUM 9.4 mg/dL 01/22/2015 Comp Metabolic Ieu546 AL K PHOS 83 U/L 01/22/2015 Comp Metabolic Ldf448 T(SGOT) 23 U/L 01/22/2015 Comp Metabolic Dwe409 AL T(SGPT) 18 U/L 01/22/2015 Comp Metabolic Rht307 BI LI T 0.8 mg/dL 01/22/2015 Comp Metabolic Ynh131 AL BUMIN 4.2 g/dL 01/22/2015 Comp Metabolic Lms664 TP RO 7.3 g/dL 01/22/2015 Comp Metabolic Xmy801 GL OB 3.1 g/dL 01/22/2015 Comp Metabolic Rtf198 A/ G Ratio 1.4 Ratio 01/22/2015 Comp Metabolic Vlx686 Os mo 279 mOsmo 01/22/2015 Review of [...] Procedure Codes Date THER/PROPH/DIAG INJ SC/IM CPT-4: 02959 09/02/2018 TRIAMCINOLONE ACET I [place] NOS CPT-4: J3301 09/02/2018 URINALYSIS NONAUTO W /O SCOPE CPT-4: 71967 03/05/2017 Vital Signs Date Vital 09/02/2018 Blood Pressure 1: 128/72 Code: 8480-6 BMI: 38.2 Code: 47204-2 Heart Rate 1: 80 bpm Height: 5'1" SpO2: 98% Weight: 202 lbs 04/14/2018 Blood Pressure 1: 116/78 Code: 8480-6 BMI: 41.6 Code: 96685-2 Heart Rate 1: 72 bpm Height: 5'1" SpO2: 98% Weight: 220 lbs 01/18/2018 Blood Pressure 1: 132/74 Code: 8480-6 BMI: 43.5 Code: 38829-3 Heart Rate 1: 70 bpm Height: 5'1" SpO2: 97% Weight: 230 lbs 01/04/2018 Blood Pressure 1: 134/76 Code: 8480-6 BMI: 42.7 Code: 28952-7 Heart Rate 1: 83 bpm Height: 5'1" SpO2: 98% Weight: 226 lbs 09/23/2017 Blood Pressure 1: 124/76 Code: 8480-6 BMI: 42.3 Code: 36770-1 Heart Rate 1: 94 bpm Height: 5'1" SpO2: 96% Weight: 224 lbs 05/27/2017 Blood Pressure 1: 146/78 Code: 8480-6 BMI: 41.4 Code: 62353-0 Heart Rate 1: 85 bpm Height: 5'1" SpO2: 98% Weight: 219 lbs 02/24/2017 Blood Pressure 1: 138/66 Code: 8480-6 BMI: 41.4 Code: 57281-0 Heart Rate 1: 78 bpm Height: 5'1" SpO2: 97% Weight: 219 lbs 11/02/2016 Blood Pressure 1: 144/72 Code: 8480-6 BMI: 46.1 Code: 61118-3 Heart Rate 1: 78 bpm Height: 5'1" SpO2: 98% Weight: 244 lbs 09/30/2016 Blood Pressure 1: 130/76 Code: 8480-6 BMI: 45.0 Code: 97867-0 Heart Rate 1: 86 bpm Height: 5'1" SpO2: 98% Weight: 238 lbs 09/10/2016 Blood Pressure 1: 136/68 Code: 8480-6 BMI: 46.3 Code: 72711-7 Heart Rate 1: 83 bpm Height: 5'1" SpO2: 98% Weight: 245 lbs 08/20/2016 Blood Pressure 1: 142/78 Code: 8480-6 BMI: 45.3 Code: 17052-4 Heart Rate 1: 84 bpm Height: 5'1" SpO2: 99% Weight: 240 lbs 06/08/2016 Blood Pressure 1: 134/76 Code: 8480-6 BMI: 44.2 Code: 73260-3 Heart Rate 1: 86 bpm Height: 5'1" SpO2: 96% Weight: 234 lbs 04/02/2016 Blood Pressure 1: 142/70 Code: 8480-6 BMI: 44.6 Code: 62504-0 Heart Rate 1: 78 bpm Height: 5'1" SpO2: 97% Weight: 236 lbs 01/14/2016 Blood Pressure 1: 146/72 Code: 8480-6 BMI: 44.2 Code: 77015-5 Heart Rate 1: 86 bpm Height: 5'1" SpO2: 96% Weight: 234 lbs 10/02/2015 Blood Pressure 1: 158/76 Code: 8480-6 BMI: 44.2 Code: 53244-6 Heart Rate 1: 67 bpm Height: 5'1" SpO2: 97% Weight: 234 lbs 07/15/2015 Blood Pressure 1: 200/90 Code: 8480-6 Blood Pressure 1: 148/78 Code: 8480-6 BMI: 44.0 Code: 46228-9 Heart Rate 1: 89 bpm Height: 5'1" SpO2: 97% Weight: 233 lbs 06/10/2015 Blood Pressure 1: 140/82 Code: 8480-6 BMI: 44.0 Code: 01205-7 Heart Rate 1: 78 bpm Height: 5'1" [...] wearing crocs and there was a new maltese on the floor: her foot didn't move [...] Encounters Encounter Performer Loca tion Codes Date [id number] EST. PATIENT, LEVEL IV Diagnosis: Other acute sinusitis[ICD10: J01.80] Diagnosis: Other allergic rhinitis[ICD10: J30.89] [facility] CPT-4: 87905 09/02/2018 ([id number]) [id number] EST. P ATIENT, LEVEL IV Diagnosis: Essential (primary) hypertension[ICD10: I10] Diagnosis: Hypothyroidism, unspecified[ICD10: E03.9] Diagnosis: Impaired fasting glucose[ICD10: R73.01] Diagnosis: half-way (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[ICD10: Z79.01] Edna Almanza MD, [facility] CPT-4: 84182 04/14/2018 ([id number]) 29721 EST. P ATIENT, LEVEL III Diagnosis: Localized edema[ICD10: R60.0] Diagnosis: Gastro-esophageal reflux disease without esophagitis[ICD10: K21.9] Edna Almanza MD, [facility] CPT-4: 18806 01/18/2018 ([id number]) 91707 EST. P ATIENT, LEVEL IV Diagnosis: Gastro-esophageal reflux disease without esophagitis[ICD10: K21.9] Diagnosis: Localized edema[ICD10: R60.0] Diagnosis: Essential (primary) hypertension[ICD10: I10] Diagnosis: Hypothyroidism, unspecified[ICD10: E03.9] Diagnosis: Impaired fasting glucose[ICD10: R73.01] Edna Almanza MD, [facility] CPT-4: 07108 01/04/2018 ([id number]) 75474 EST. P ATIENT, LEVEL IV Diagnosis: Essential (primary) hypertension[ICD10: I10] Diagnosis: half-way (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[ICD10: Z79.01] Diagnosis: Incisional hernia without obstruction or gangrene[ICD10: K43.2] Diagnosis: Right lower quadrant pain[ICD10: R10.31] Sarai Almanza MD, [facility] CPT-4: 20405 09/23/2017 ([id number]) 45470 EST. 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 PATIENT, LEVEL III Diagnosis: Pain in right hip[ICD10: M25.551] Nata Almanza MD, [facility] CPT-4: 30837 02/24/2017 ([id number]) 33185 EST. P ATIENT, LEVEL IV Diagnosis: Essential (primary) hypertension[ICD10: I10] Diagnosis: Localized edema[ICD10: R60.0] Diagnosis: Pain in right hip[ICD10: M25.551] Sarai Almanza MD, [facility] CPT-4: 64240 11/02/2016 ([id number]) 20083 EST. P ATIENT, LEVEL IV Diagnosis: Essential (primary) hypertension[ICD10: I10] Diagnosis: Localized edema[ICD10: R60.0] Sarai Almanza MD, [facility] CPT-4: 97509 09/30/2016 [id number] EST. PATIENT, LEVEL IV Diagnosis: Localized edema[ICD10: R60.0] Diagnosis: Pain in joints of left hand[ICD10: M25.542] Diagnosis: Pain in joints of right hand[ICD10: M25.541] Nata Almanza MD, [facility] CPT-4: 30432 09/10/2016 [id number] EST. PATIENT, LEVEL IV Diagnosis: Localized edema[ICD10: R60.0] Diagnosis: Pain in joints of left hand[ICD10: M25.542] Diagnosis: Pain in joints of right hand[ICD10: M25.541] Diagnosis: Other fatigue[ICD10: R53.83] Nata Almanza MD, [facility] CPT-4: 41276 08/20/2016 01421 EST. 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 PATIENT, LEVEL IV Diagnosis: Other allergic rhinitis[ICD10: J30.89] Diagnosis: Acute laryngopharyngitis[ICD10: J06.0] Nata Almanza MD, [facility] CPT-4: 70496 04/02/2016 82389 EST. PATIENT, LEVEL IV Diagnosis: Left upper quadrant pain[ICD10: R10.12] Nata Amlanza MD, [facility] CPT-4: 99940 01/14/2016 08167 EST. PATIENT, LEVEL IV Diagnosis: Pain in left shoulder[ICD10: M25.512] Diagnosis: Body mass index (BMI) 40.0-44.9, adult[ICD10: Z68.41] Nata Almanza MD, [facility] CPT-4: 10418 10/02/2015 20900 EST. PATIENT, LEVEL IV Diagnosis: Pain in left leg[ICD10: M79.605] Diagnosis: Other residential (current) drug therapy[ICD10: Z79.899] Nata Almanza MD, [facility] CPT-4: 46832 07/15/2015 ([id number]) 13896 EST. 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 09/02/2018 Appointment: Nata Hsu WPtel: [phone] [facility]6[address] (15 min) Moderate 09/02/2018 Patient Education: Patient [...] Hgb A1C 04/14/2018 Appointment: Edna Douglas WPtel: [facility]8 [phone] (15 min) Moderate 04/14/2018 Patient Education: Patient [...] to further attempt to reduce peripheral edema. NJQS-fptpxxoy-rdbaabbn prilosec BID and carafate QID -discussed low spice, low acidic diet 01/18/2018 Appointment: Edna Douglas WPtel: [phone] [place] [phone] [place] (15 min) Moderate 01/18/2018 Patient Education: [...] of control. 01/04/2018 Appointment: Edna Douglas WPtel: [address] [place], [place] [phone] [place] (30 min) Complex 01/04/2018 Patient Education: Patient Medication Summary Completed 01/04/2018 Care Plan: SCREENINGMAMMOGRAPHYDIGITAL LOINC : 77255-9 Pending 01/04/2018 Visit Plan: Abdominal hernia - not able to be taken to surgery by local providers and pt has been seen at [facility] and that surgeon felt like Kat would be better served by Dr. Betancur at [facility]. Jenaro singh recommended a referral to dr. [...] home. 09/23/2017 Appointment: [phone] (15 min) Moderate 09/23/2017 Patient Education: Patient [...] medications. 05/27/2017 [facility]ment[phone] [place] (30 min) Complex 05/27/2017 Patient [...] [place]. 02/24/2017 Appointment: [facility] Hsu [facility]Ptel[phone] (30 min) Complex 02/24/2017 Patient Education: [...] [place]. 11/02/2016 Appointment: [facility]manza [facility]el[phone] [place] (15 min) Moderate 11/02/2016 Patient [...] peripheral edema. 09/30/2016 Appointment: Sarai Almanza WPtel: [facility]5 [facility] (15 min) Moderate 09/30/2016 Patient Education: Patient [...] peripheral edema. 09/10/2016 Appointment: Nata Hsu WPtel: [facility]8 [phone] (30 min) Complex 09/10/2016 Patient Education: Patient [...] peripheral edema. 08/20/2016 Appointment: Nata Hsu WPtel: [facility]7 [facility] (30 min) Complex 08/20/2016 Patient Education: Patient Medication Summary Completed 08/20/2016 Referral: Otf Lee [id number] Referral Initiated 07/02/2016 Visit Plan: Chronic Anticoagulant [...] 06/08/2016 Care Plan: Referral Order SNOMED-CT : [id number] Pending 06/08/2016 Visit Plan: URI - Pt [...] allergy spray. 04/02/2016 Appointment: [facility]su [facility]Ptel[phone] (30 min) Complex 04/02/2016 Patient [...] acute pain 01/14/2016 Appointment: Ed[facility] Douglas [facility]Ptel[phone] (30 min) Complex 01/14/2016 Patient Education: Patient Medication Summary Completed 01/14/2016 Patient Education: Obesity Completed 01/14/2016 Care Plan: BMI Above normal followup DAVID F-MGMT EDUC & TRAIN 1 PT Pending 10/24/2015 Care Plan: X-RAY EXAM OF SHOULDER LOINC : 75547-6 Pending 10/24/2015 Visit Plan: Left shoulder pain [...] weight check. 10/02/2015 Appointment: Edna Douglas WPtel: [phone] (15 min) Moderate 10/02/2015 Patient [...] ses Completed 06/10/2015 Appointment: Sarai Almanza WPtel: [facility]3 [address] (15 min) Moderate 04/22/2015 Visit Plan: Hypertension [...] have surgical fixation - planning occurring at [facility]. Snoring - Sleep apnea symptoms with [...] to medications. 01/22/2015 Appointment: Sarai Almanza WPtel: [facility]1 [facility] [place] (S) New Patient 01/22/2015 Patient Education: Patient Medication Summary Completed 01/22/2015 Patient Education: Hypertension Completed 01/22/2015 Referral: Otf Lee [address] Referral Initiated Instructions Comment . Hypertension [...] to further attempt to reduce peripheral edema. EAAP-odyprqab-aknatvga prilosec BID and carafate QID -discussed low [...] be better served by Dr. Betancur at [facility]. I have recommended a referral [...] have surgical fixation - planning occurring at [facility]. Snoring - Sleep apnea symptoms with [...]
--- OUTSIDE RECORDS SUMMARY | 2020-01-16 23:04 | XMS REPORT | CCD ---
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 Role Phone PP Unavailable CCM Unavailable Summary Purpose Interface Exchange Insurance Providers Payer name Policy type / Coverage type Covered republican ID Effective Begin Date Effective End Date [facility] [id number] 2015 Unknown Home Comfort Zones Benefit [place] [id number] 2015 Unknown Family history Father Diagnosis Age At Onset Hyperlipidemia Unknown Heart Attack Unknown Mother Diagnosis Age At Onset Arthritis Unknown Social History Social History Element Codes Description Effective Dates Marital status Unknown M arried Nathan 09/30/2016 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 Number of children Unknown 3 01/22/[address]: 929729595 Never smoker 01/22/[address]: 725451019 Never drinks alcohol 01/22/2015 Allergies, Adverse Reactions, Alerts Allergies, Adverse Reactions, Alerts data not found Past Medical History Illness Codes Condition Status Onset Date Resolved Date Essential (primary) hypertension ICD-9: 401.9 ICD-10: I10 Active 06/07/2016 Unknown Localized edema ICD-9: 782.3 ICD-10: R60.0 Active 06/09/2015 Unknown Pain in right hip ICD-9: 719.45 [...] 780.79 ICD-10: R53.83 Active 08/20/2016 Unknown Other custodial (cur rent) drug therapy ICD-9: V58.69 ICD-10: Z79.899 Active 06/07/2016 Unknown Tinnitus, bilateral ICD- 9: 388.31 ICD-10: H93.13 Active 06/07/2016 Unknown Acute laryngopharyng itis ICD-9: 465.0 ICD-10: J06.0 Active 04/01/2016 Unknown Other allergic rhinitis ICD-9: 477.8 ICD-10: J30.89 Active 04/01/2016 Unknown Left upper quadrant pain ICD-9: 789.02 ICD-10: R10.12 Active 01/13/2016 Unknown Body mass index (BMI ) 40.0-44.9, adult ICD-9: V85.41 ICD-10: Z68.41 Active 10/01/2015 Unknown Pain in left shoulder ICD-9: 719.41 ICD-10: M25.512 Active 10/01/2015 Unknown Pain in left leg ICD-9: 729.5 ICD-10: M79.605 Active 07/14/2015 Unknown Mixed hyperlipidemia ICD-9: 272.4 ICD-10: E78.2 Active 06/09/2015 Unknown Pain in right shoulder ICD-9: 719.41 [...] Condition Codes Effectiv e Dates Condition Status Essential (primary) hypertension ICD-9: 401.9 ICD-10: I10 06/07/2016 Active Localized edema ICD-9: 782.3 ICD-10: R60.0 06/09/2015 Active Pain in right hip ICD-9: 719.45 [...] ICD-9: 780.79 ICD-10: R53.83 08/20/2016 Active Other 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 rent) drug therapy ICD-9: V58.69 ICD-10: Z79.899 06/07/2016 Active Tinnitus, bilateral ICD- 9: 388.31 ICD-10: H93.13 06/07/2016 Active Acute laryngopharyng itis ICD-9: 465.0 ICD-10: J06.0 04/01/2016 Active Other allergic rhinitis ICD-9: 477.8 ICD-10: J30.89 04/01/2016 Active Left upper quadrant pain ICD-9: 789.02 ICD-10: R10.12 01/13/2016 Active Body mass index (BMI ) 40.0-44.9, adult ICD-9: V85.41 ICD-10: Z68.41 10/01/2015 Active Pain in left shoulder ICD-9: 719.41 ICD-10: M25.512 10/01/2015 Active Pain in left leg ICD-9: 729.5 ICD-10: M79.605 07/14/2015 Active Mixed hyperlipidemia ICD-9: 272.4 ICD-10: E78.2 06/09/2015 Active Pain in right shoulder ICD-9: 719.41 [...] Date Stop Date Sta tus Fill Instructions sodium bicarbonate 6 50 mg tablet RxNorm: 882079 TAKE 2 TABLETS BY JAVON TH TWICE DAILY 12/24/2016 06/21/2017 Ac tive 12/24/2016 9:09:27 AM Lasix 20 mg tablet RxNorm: 864278 1 Tablet(s) PO daily 12/24/2016 04/22/2017 Active Synthroid 137 mcg ta blet RxNorm: 877515 TAKE 1 TABLET BY MOUT H ONCE DAILY 11/24/2016 05/22/2017 Ac tive Generic For:SYNTHROID 137MCG TAB 2016 9:04:37 AM Coumadin 4 mg tablet RxNorm: 738105 TAKE 1 TABLET BY MOUTH THREE TIMES PER [place] (WEDNESDAY, WEDNESDAY AND WEDNESDAY) 11/24/2016 01/22/2017 Active Generic For:COUMADIN 4MG 11/24/2016 9:04:41 AM hydrocodone 5 mg-humberto taminophen 325 mg tablet RxNorm: 456484 1-2 Tablet(s) PO Q6 P RN 11/17/2016 No Stop Date Active Carafate 1 gram tablet RxNorm: 879985 TAKE ONE TABLET BY MOUTH TWICE DAILY 10/27/2016 05/24/2017 Ac tive Generic For:CARAFATE 1GM 10/26/2016 8:3 9:42 AM allopurinol 300 mg t ablet RxNorm: 647607 Tablet(s) TAKE 1 TABL ET BY MOUTH ONCE DAILY. 10/26/2016 04/23/2017 Ac tive Lipitor 40 mg tablet RxNorm: 749543 1 Tablet(s) PO daily 09/25/2016 09/19/2017 Active Zetia 10 mg tablet RxNorm: 857233 1 Tablet(s) PO daily 09/25/2016 01/22/2017 Active gave 1 month of samples Coumadin 4 mg tablet RxNorm: 687430 TAKE 1 TABLET BY MOUTH THREE TIMES PER [place] (WEDNESDAY, WEDNESDAY AND WEDNESDAY) 09/25/2016 11/23/2016 Inactive Generic For:COUMADIN 4MG 09/25/2016 8:55:58 AM clonazepam 0.5 mg ta blet RxNorm: 214063 1 Tablet(s) PO BID 09/21/2016 02/17/2017 Active potassium chloride 2 0 mEq/15 mL oral liquid RxNorm: 802482 Milliliter(s) 30 Milliliter(s) (40mEq) PO daily 09/15/2016 01/12/2017 Active Lasix 20 mg tablet RxNorm: 514879 1 Tablet(s) PO daily 09/15/2016 12/23/2016 Inactive Lasix 20 mg tablet RxNorm: 375758 2 Tablet(s) PO daily 09/10/2016 09/12/2016 Inactive Lasix 20 mg tablet RxNorm: 680498 1 Tablet(s) PO daily 08/28/2016 08/30/2016 Inactive Lasix 20 mg tablet RxNorm: 100409 1 Tablet(s) PO daily 08/20/2016 08/22/2016 Inactive Detrol LA 4 mg capsu le,extended release RxNorm: 374353 TAKE 1 CAPSULE BY JAVON TH ONCE DAILY 07/27/2016 02/21/2017 Active Generic For:DETROL LA 4MG CA P 07/27/2016 9:08:27 AM omeprazole 20 mg cap chicho,delayed release RxNorm: 137138 Capsule(s) PO TAKE 1 CAPSULE BY MOUTH ONCE DAILY 07/27/2016 01/22/2017 Active Coumadin 4 mg tablet RxNorm: 282400 1 Tablet(s) PO 3 x week wed and sun 07/27/2016 09/24/2016 In active venlafaxine ER 75 mg capsule,extended release 24 hr RxNorm: 441299 1 Capsule(s) PO daily 06/29/2016 06/23/2017 Active sodium bicarbonate 6 50 mg tablet RxNorm: 857268 TAKE 2 TABLETS BY JAVON TH TWICE DAILY 06/29/2016 12/23/2016 In active 06/27/2016 9:05:39 AM Coumadin 4 mg tablet RxNorm: 942315 1 Tablet(s) PO 3 x week e th and sun 06/09/2016 06/08/2016 In active Coumadin 4 mg tablet RxNorm: 938887 1 Tablet(s) PO 3 x week e thur and sun 06/09/2016 07/26/2016 In active Zetia 10 mg tablet RxNorm: 478897 1 Tablet(s) PO daily 06/09/2016 06/08/2016 Inactive gave 1 month of samples Zetia 10 mg tablet RxNorm: 105967 1 Tablet(s) PO daily 06/09/2016 09/24/2016 Inactive gave 1 month of samples spironolactone 25 mg tablet RxNorm: 206735 1 Tablet(s) PO daily 06/08/2016 06/02/2017 Active Effexor 75 mg tablet RxNorm: 620494 1 Tablet(s) PO daily 06/08/2016 06/28/2016 Inactive Synthroid 137 mcg ta blet RxNorm: 047613 1 Tablet(s) PO daily 05/07/2016 11/02/2016 Inactive allopurinol 300 mg t ablet RxNorm: 585459 Tablet(s) TAKE 1 TABL ET BY MOUTH ONCE DAILY. 04/28/2016 10/24/2016 Inactive clonazepam 0.5 mg ta blet RxNorm: 341319 1 Tablet(s) PO BID 04/20/2016 09/15/2016 Inactive Flonase Allergy Reli ef 50 mcg/actuation nasal spray,suspension RxNorm: 1515310 1 [place] NASAL BID 04/02/2016 No Stop Date Active Zithromax Z-Thomas 250 mg tablet RxNorm: 545041 Tablet(s) PO 04/02/2016 08/27/2016 Inactive cetirizine 10 mg tablet RxNorm: 4216507 1 Tablet(s) PO daily 04/02/2016 05/01/2016 Inactive Carafate 1 gram tablet RxNorm: 548125 Tablet(s) TAKE 1 TABLET TWICE A DAY FOR 30 DAYS 03/30/2016 10/25/2016 Inactive Generic For:CARAFATE 1GM 02/08/2015 12:3 6:39 PM Plavix 75 mg tablet RxNorm: 577689 1 Tablet(s) PO daily 03/11/2016 09/06/2016 Inactive sodium bicarbonate 6 50 mg tablet RxNorm: 513552 Tablet(s) 2 Tablet(s) PO BID 02/28/2016 06/26/2016 In active omeprazole 20 mg cap chicho,delayed release RxNorm: 336599 Capsule(s) PO TAKE 1 CAPSULE BY MOUTH ONCE DAILY 01/31/2016 07/26/2016 Inactive Fish Oil 1,000 mg ca psule RxNorm: 1 Capsule(s) PO BID 01/14/2016 No Stop Date Active Synthroid 137 mcg ta blet RxNorm: 589078 1 Tablet(s) PO daily 01/14/2016 05/06/2016 Inactive Detrol LA 4 mg capsu le,extended release RxNorm: 015942 TAKE 1 CAPSULE BY JAVON TH ONCE DAILY 12/30/2015 07/26/2016 Inactive Generic For:DETROL LA 4MG C AP 12/30/2015 9:11:01 AM potassium chloride 2 0 mEq/15 mL oral liquid RxNorm: 710192 Milliliter(s) 30 Milliliter(s) (40mEq) PO daily 12/02/2015 03/30/2016 Inactive sodium bicarbonate 6 50 mg tablet RxNorm: 038098 Tablet(s) 2 Tablet(s) PO BID 10/31/2015 02/27/2016 In active Lipitor 40 mg tablet RxNorm: 422808 1 Tablet(s) PO daily 10/09/2015 09/24/2016 Inactive sodium bicarbonate 6 50 mg tablet RxNorm: 468863 2 Tablet(s) PO BID 10/01/2015 10/30/2015 Inactive allopurinol 300 mg t ablet RxNorm: 103691 TAKE 1 TABLET BY MOUT H ONCE DAILY. 10/01/2015 04/27/2016 In active Generic For:ZYLOPRIM 300 MG TABLET 09/19 9:21:15 AM clonazepam 0.5 mg ta blet RxNorm: 330198 1 Tablet(s) PO BID 09/30/2015 04/19/2016 Inactive Coumadin 5 mg tablet RxNorm: 415737 1 Tablet(s) PO daily 09/27/2015 No Stop Date Active Generic For:COUMADIN 5MG TAB N O T I C E PRESCRIPTION PREVIOUSLY AUTHORIZED BY DOCTOR:BOBBY ZULETA Synthroid 125 mcg ta blet RxNorm: 227673 1 Tablet(s) PO daily 09/27/2015 09/26/2015 Inactive Synthroid 125 mcg ta blet RxNorm: 855980 1 Tablet(s) PO daily 09/27/2015 01/13/2016 Inactive Carafate 1 gram tablet RxNorm: 321217 Tablet(s) TAKE 1 TABLET TWICE A DAY FOR 30 DAYS 09/02/2015 03/29/2016 Inactive Generic For:CARAFATE 1GM 02/08/2015 12:3 6:39 PM sodium bicarbonate 6 50 mg tablet RxNorm: 575593 2 Tablet(s) PO BID 09/02/2015 09/30/2015 Inactive Prilosec 20 mg capsu le,delayed release RxNorm: 911546 TAKE 1 CAPSULE BY JAVON TH ONCE DAILY 08/02/2015 01/28/2016 Inactive Generic For:PRILOSEC 20MG 08/02/2015 10:03:09 AM N O T I C E PRESCRIPTION PREVIOUSLY AUTHORIZED BY DOCTOR:BOBBY ZULETA Zyrtec 10 mg capsule RxNorm: 5395414 1 Capsule(s) PO daily 07/15/2015 08/13/2015 Inactive Keflex 500 mg capsule RxNorm: 594069 1 Capsule(s) PO TID 07/15/2015 07/21/2015 Inactive cetirizine 10 mg cap chicho RxNorm: 6742923 1 Capsule(s) PO daily 07/15/2015 08/13/2015 Inactive hydrocodone 5 mg-humberto taminophen 325 mg tablet RxNorm: 384995 1-2 Tablet(s) PO Q6 P RN 06/10/2015 11/16/2016 In active sodium bicarbonate 6 50 mg tablet RxNorm: 087465 2 Tablet(s) PO BID 06/03/2015 08/31/2015 Inactive Detrol LA 4 mg capsu le,extended release RxNorm: 075111 TAKE 1 CAPSULE BY JAVON TH ONCE DAILY 06/03/2015 12/29/2015 Inactive Generic For:DETROL LA 4MG C AP N O T I C E PRESCRIPTION PREVIOUSLY AUTHORIZED BY DOCTOR:BOBBY ZULETA atenolol 50 mg tablet RxNorm: 144816 1 Tablet(s) PO daily TAKE 1 TABLET BY [facility] DAILY 05/07/2015 04/30/2016 Inactive Generic For:TENORMIN 50MG 05/04/2015 9:07:22 AM spironolactone 25 mg tablet RxNorm: 246232 1 Tablet(s) PO daily 05/06/2015 06/07/2016 Inactive venlafaxine ER 75 mg capsule,extended release 24 hr RxNorm: 708133 1 Capsule(s) PO daily 05/04/2015 06/28/2016 Inactive atenolol 50 mg tablet RxNorm: 388267 TAKE 1 TABLET BY MOUTH DAILY 05/04/2015 05/06/2015 Inactive Generic For:TENORMIN 50MG 05/04/2015 9: 07:22 AM Synthroid 150 mcg ta blet RxNorm: 585782 TAKE 1 TABLET BY MOUT H ONCE DAILY. 04/05/2015 09/26/2015 In active Generic For:SYNTHROID 150MCG TAB 2014 4:45:40 PM N O T I C E PRESCRIPTION PREVIOUSLY AUTHORIZED BY DOCTOR:BOBBY ZULETA Effexor 75 mg tablet RxNorm: 290621 1 Tablet(s) PO daily 04/05/2015 07/03/2015 Inactive Coumadin 5 mg tablet RxNorm: 779979 TAKE 1 AND 1/2 TABLETS BY MOUTH ONCE MYRANDA LY 04/04/2015 09/26/2015 In active Generic For:COUMADIN 5MG TAB N O T I C E PRESCRIPTION PREVIOUSLY AUTHORIZED BY DOCTOR:BOBBY ZULETA clonazepam 0.5 mg ta blet RxNorm: 700796 1 Tablet(s) PO BID 03/13/2015 11/05/2015 Inactive sodium bicarbonate 6 50 mg tablet RxNorm: 730956 2 Tablet(s) PO BID 03/08/2015 06/02/2015 Inactive allopurinol 300 mg t ablet RxNorm: 847552 TAKE 1 TABLET BY MOUT H ONCE DAILY. 03/05/2015 09/30/2015 In active N O T I C E PRESCRIPTION PREVIOUSLY A UTHORIZED BY DOCTOR:BOBBY ZULETA Plavix 75 mg tablet RxNorm: 183721 1 Tablet(s) PO daily 02/12/2015 09/09/2015 Inactive clonazepam 0.5 mg ta blet RxNorm: 502874 1 Tablet(s) PO BID 02/11/2015 03/11/2015 Inactive Carafate 1 gram tablet RxNorm: 695098 TAKE 1 TABLET TWICE A DAY FOR 30 DAYS 02/08/2015 02/07/2015 In active Generic For:CARAFATE 1GM 02/08/2015 12:3 6:39 PM Carafate 1 gram tablet RxNorm: 881509 Tablet(s) TAKE 1 TABLET TWICE A DAY FOR 30 DAYS 02/08/2015 09/01/2015 Inactive Generic For:CARAFATE 1GM 02/08/2015 12:3 6:39 PM potassium chloride 2 0 mEq/15 mL oral liquid RxNorm: 587612 30 Milliliter(s) (40m Eq) PO daily 02/05/2015 12/01/2015 Inactive atenolol 50 mg tablet RxNorm: 431308 1 Tablet(s) PO daily 02/04/2015 05/03/2015 Inactive [SAVINGS FOR NON-COVERED DRUGS -- BIN:00 [id number], PCN: [id number], Group: XXXXX, ID# [id number], Questions: . THIS IS NOT INSURANCE.] potassium chloride 2 0 mEq/15 mL oral liquid RxNorm: 430265 30 Milliliter(s) (40m Eq) PO daily 01/08/2015 02/04/2015 Inactive potassium chloride 2 0 mEq/15 mL oral liquid RxNorm: 433355 30 Milliliter(s) (40m Eq) PO daily 12/07/2014 01/07/2015 Inactive atenolol 50 mg tablet RxNorm: 208715 1 Tablet(s) PO daily 11/09/2014 11/08/2014 Inactive atenolol 50 mg tablet RxNorm: 504227 1 Tablet(s) PO daily 11/09/2014 02/03/2015 Inactive [SAVINGS FOR NON-COVERED DRUGS -- BIN:00 3585, PCN: [id number], Group: XXXXX, ID# [id number], Questions: . THIS IS NOT INSURANCE.] cranberry 1,000 mg c apsule RxNorm: 687667 1 Capsule(s) PO daily No Start Date Active Voltaren 1 % topical gel RxNorm: 871309 TOP No St art Date Active atenolol 50 mg tablet RxNorm: 058630 1 Tablet(s) PO daily No Start Date Active verapamil ER (HS) 24 0 mg tablet,extended release 24 hr RxNorm: 475365 1 Tablet(s) PO daily No Start Date Active aspirin 81 mg tablet RxNorm: 616813 1 Tablet(s) PO daily No Start Date Active Zofran 4 mg tablet RxNorm: 814244 1 Tablet(s) PO PRN No Start Date Active B12 1000 mcg RxNorm: 1 Tablet(s) PO daily No Start Date Active Lipitor 40 mg tablet RxNorm: 615183 1 Tablet(s) PO daily No Start Date 10/08/2015 Inactive magnesium oxide 400 mg capsule RxNorm: 283055 2 Capsule(s) PO BID No Start Date Active Synthroid 150 mcg ta blet RxNorm: 113862 1 Tablet(s) PO daily No Start Date 04/04/2015 Inactive Coumadin 5 mg tablet RxNorm: 739468 1 Tablet(s) PO daily No Start Date 04/03/2015 Inactive allopurinol 300 mg t ablet RxNorm: 044698 1 Tablet(s) PO daily No Start Date 03/04/2015 Inactive Prilosec 20 mg capsu le,delayed release RxNorm: 939130 1 Capsule(s) PO PRN No Start Date 08/01/2015 Inactive potassium chloride 2 0 mEq/15 mL oral liquid RxNorm: 943284 30 Milliliter(s) (40m Eq) PO daily No Start Date 12/06/2014 Inactive Effexor 75 mg tablet RxNorm: 673638 1 Tablet(s) PO daily No Start Date 04/04/2015 Inactive Carafate 1 gram tablet RxNorm: 278711 1 Tablet(s) PO BID No Start Date 02/07/2015 Inactive clonazepam 0.5 mg ta blet RxNorm: 076372 1 Tablet(s) PO BID No Start Date 02/10/2015 Inactive Plavix 75 mg tablet RxNorm: 311323 1 Tablet(s) PO daily No Start Date 02/11/2015 Inactive sodium bicarbonate 6 50 mg tablet RxNorm: 549810 2 Tablet(s) PO BID No Start Date 09/01/2015 Inactive Fish Oil 1,000 mg ca psule RxNorm: 1 Capsule(s) PO daily No Start Date 01/13/2016 Inactive Detrol LA 4 mg capsu le,extended release RxNorm: 307464 1 Capsule(s) PO daily No Start Date 06/02/2015 Inactive Medication Administered No Medication Administered data Immunizations No Immunization data Assessments Condition Codes Effectiv e Dates Localized edema ICD-10: R60.0 ICD-9: 782.3 11/02/2016 Pain in right hip ICD-10: M25.551 ICD-9: 719.45 11/02/2016 Essential (primary) hypertension ICD -10: I10 ICD-9: 401.9 11/02/2016 Hyperglycemia, unspecified ICD-10: R 73.9 ICD-9: 790.29 10/08/2016 Personal history of other endocrine, nut ritional and metabolic disease ICD-10: Z86.39 ICD-9: V12.29 09/18/2016 Pain in joints of right hand ICD-10: M25.541 ICD-9: 719.44 09/10/2016 Pain in joints of left hand ICD-10: M25.542 ICD-9: 719.44 09/10/2016 Other fatigue ICD-10: R53.83 ICD-9: 780.79 08/20/2016 Other custodial (current) drug therapy ICD-10: Z79.899 ICD-9: V58.69 06/08/2016 Tinnitus, bilateral ICD-10: H93.13 ICD-9: 388.31 06/08/2016 Other allergic rhinitis ICD-10: J30. 89 ICD-9: 477.8 04/02/2016 Acute laryngopharyngitis ICD-10: J06 .0 ICD-9: 465.0 04/02/2016 Left upper quadrant pain ICD-10: R10 .12 ICD-9: 789.02 01/14/2016 Body mass index (BMI) 40.0-44.9, adult ICD-10: Z68.41 ICD-9: V85.41 10/02/2015 Pain in left shoulder ICD-10: M25.51 2 ICD-9: 719.41 10/02/2015 Pain in left leg ICD-10: M79.605 ICD-9: 729.5 07/15/2015 Mixed hyperlipidemia ICD-10: E78.2 ICD-9: 272.4 06/10/2015 Pain in right shoulder ICD-10: M25.5 11 ICD-9: 719.41 06/10/2015 Snoring ICD-9: 786.09 Status post gastric surgery ICD-9: V45.89 01/22/2015 ESSENTIAL HYPERTENSION ICD-9: 401.9 01/22/2015 ENCNTR LONG-RX USE NEC ICD-9: V58.69 01/22/2015 HYPERLIPIDEMIA ICD-9: 272.4 01/22/2015 Vitamin B12 deficiency ICD-9: 266.2 01/22/2015 HYPOTHYROIDISM ICD-9: 244.9 01/22/2015 Reason For Visit Reason For Visit Effective Dates Notes hypertension 11/02/2016 hypertension 09/30/2016 edema 09/10/2016 medication follow up 08/20/2016 medication follow up 06/08/2016 cough 04/02/2016 abdominal pain 01/14/2016 shoulder pain 10/02/2015 edema 07/15/2015 weight gain/obesity 06/10/2015 hernia 01/22/2015 right sided abdomen with previous ileostomy Results Observation Observation Code Item Item Code Result Date %Hba1C Rcu604 % HbA1c 27878-3 6.4 % 10/23/2016 %Hba1C Npp449 Gluc Ave 137 mg/dL 10/23/2016 Comp Metabolic Dgs138 NA 138 mEq/L 10/23/2016 Comp Metabolic Psh942 K 3.4 mEq/L 10/23/2016 Comp Metabolic Vou935 CL 100 mEq/L 10/23/2016 Comp Metabolic Mxi464 CO2 30.0 mEq/L 10/23/2016 Comp Metabolic Ssf664 AN ION GAP 11 10/23/2016 Comp Metabolic Ihi670 GL UCOSE 139 mg/dL 10/23/2016 Comp Metabolic Xzh077 Cr eat 0.9 mg/dL 10/23/2016 Comp Metabolic Vos413 eG FR 62 ml/min/1.73m2 10/23 Comp Metabolic Gcr965 BUN 22 mg/dL 10/23/2016 Comp Metabolic Jei595 B/ C Ratio 23.4 Ratio 10/23/2016 Comp Metabolic Nli214 CA LCIUM 8.7 mg/dL 10/23/2016 Comp Metabolic Exh741 AL K PHOS 66 U/L 10/23/2016 Comp Metabolic Jom185 T(SGOT) 20 U/L 10/23/2016 Comp Metabolic Bno317 AL T(SGPT) 10 U/L 10/23/2016 Comp Metabolic Ldl268 BI LI T 0.5 mg/dL 10/23/2016 Comp Metabolic Jeq764 AL BUMIN 3.5 g/dL 10/23/2016 Comp Metabolic Mrw564 TP RO 6.3 g/dL 10/23/2016 Comp Metabolic Oeg665 GL OB 2.8 g/dL 10/23/2016 Comp Metabolic Hgk119 A/ G Ratio 1.3 Ratio 10/23/2016 Comp Metabolic Fyp315 Os mo 281 mOsmo 10/23/2016 Pt Src2863 PT 26.8 seconds 10/23/2016 Pt Bhm5218 INR 2.7 10/23/2016 Pt Qaa1004 Low Intensity - 1.5-2.0 10/23/2016 Pt Dog8638 Mod intensity - 2.0-3.0 10/23/2016 Pt Wmj6006 Hi intensity - 3.0-4.0 10/23/2016 Pt Pnr5458 PT 28.3 seconds 09/25/2016 Pt Hzm6456 INR 2.8 09/25/2016 Pt Aje0401 Low Intensity - 1.5-2.0 09/25/2016 Pt Jij7824 Mod intensity - 2.0-3.0 09/25/2016 Pt Ilz6284 Hi intensity - 3.0-4.0 09/25/2016 Metabolic Ord15 [...] Metabolic Ord15 CALCIUM 8.8 mg/dL 09/25/2016 Pt Syy6853 PT 30.6 seconds 09/11/2016 Pt Dds9479 INR 3.2 09/11/2016 Pt Czx1598 Low Intensity - 1.5-2.0 09/11/2016 Pt Kka7564 Mod intensity - 2.0-3.0 09/11/2016 Pt Mdk0571 Hi intensity - 3.0-4.0 09/11/2016 Comp Metabolic Jjg123 NA 138 mEq/L 09/11/2016 Comp Metabolic Uuk554 K 4.4 mEq/L 09/11/2016 Comp Metabolic Ndd876 CL 103 mEq/L 09/11/2016 Comp Metabolic Zed592 CO2 31.0 mEq/L 09/11/2016 Comp Metabolic Gut152 AN ION GAP 8 09/11/2016 Comp Metabolic Fwz644 GL UCOSE 146 mg/dL 09/11/2016 Comp Metabolic Mzc072 Cr eat 1.0 mg/dL 09/11/2016 Comp Metabolic Guw986 eG FR 60 ml/min/1.73m2 09/11 Comp Metabolic Xhc549 BUN 16 mg/dL 09/11/2016 Comp Metabolic Mtn047 B/ C Ratio 16.5 Ratio 09/11/2016 Comp Metabolic Dqm156 CA LCIUM 8.7 mg/dL 09/11/2016 Comp Metabolic Oko904 AL K PHOS 52 U/L 09/11/2016 Comp Metabolic Yjs730 T(SGOT) 19 U/L 09/11/2016 Comp Metabolic Tro400 AL T(SGPT) 11 U/L 09/11/2016 Comp Metabolic Zue768 BI LI T 0.7 mg/dL 09/11/2016 Comp Metabolic Ast368 AL BUMIN 3.3 g/dL 09/11/2016 Comp Metabolic Dhi231 TP RO 5.8 g/dL 09/11/2016 Comp Metabolic Wru994 GL OB 2.5 g/dL 09/11/2016 Comp Metabolic Edi416 A/ G Ratio 1.3 Ratio 09/11/2016 Comp Metabolic Gny552 Os mo 280 mOsmo 09/11/2016 C-Reactive Protein Qnt Crqnt CRP 0.1 mg/dl 08/21/2016 Comp Metabolic Dvb223 NA 139 mEq/L 08/21/2016 Comp Metabolic Cqg293 K 4.1 mEq/L 08/21/2016 Comp Metabolic Mzg707 CL 102 mEq/L 08/21/2016 Comp Metabolic Ntv545 CO2 30.0 mEq/L 08/21/2016 Comp Metabolic Kqz097 AN ION GAP 11 08/21/2016 Comp Metabolic Pet334 GL UCOSE 148 mg/dL 08/21/2016 Comp Metabolic Ict256 Cr eat 1.0 mg/dL 08/21/2016 Comp Metabolic Tuu290 eG FR 55 ml/min/1.73m2 08/21 Comp Metabolic Swq527 BUN 21 mg/dL 08/21/2016 Comp Metabolic Rau297 B/ C Ratio 20.2 Ratio 08/21/2016 Comp Metabolic Rbc070 CA LCIUM 9.4 mg/dL 08/21/2016 Comp Metabolic Vhz953 AL K PHOS 63 U/L 08/21/2016 Comp Metabolic Url662 T(SGOT) 23 U/L 08/21/2016 Comp Metabolic Vnt078 AL T(SGPT) 16 U/L 08/21/2016 Comp Metabolic Xvh846 BI LI T 0.6 mg/dL 08/21/2016 Comp Metabolic Ecz553 AL BUMIN 3.9 g/dL 08/21/2016 Comp Metabolic Dgj427 TP RO 6.8 g/dL 08/21/2016 Comp Metabolic Rxx459 GL OB 2.9 g/dL 08/21/2016 Comp Metabolic Qek867 A/ G Ratio 1.4 Ratio 08/21/2016 Comp Metabolic Bff155 Os mo 283 mOsmo 08/21/2016 Sed Rate Ord21 ESR 16 mm/hr 08/21/2016 Pt Aws7316 PT 27.2 seconds 08/21/2016 Pt Gan5327 INR 2.7 08/21/2016 Pt Zig4528 Low Intensity - 1.5-2.0 08/21/2016 Pt Etq1902 Mod intensity - 2.0-3.0 08/21/2016 Pt Dsk3218 Hi intensity - 3.0-4.0 08/21/2016 Magnesium Ord90 Mag 1.9 mg/dL 08/21/2016 Pt Ypr3720 PT 25.9 seconds 06/17/2016 Pt Vfr2417 INR 2.5 06/17/2016 Pt Sje8620 Low Intensity - 1.5-2.0 06/17/2016 Pt Srk8313 Mod intensity - 2.0-3.0 06/17/2016 Pt Brr3323 Hi intensity - 3.0-4.0 06/17/2016 Tsh Ord6 hTSH II 2.13 uIU/mL 06/08/2016 Free T4 Nmq573 FREE T4 0.79 ng/dL 06/08/2016 Cbc With Differential Ord2 WBC 5.75 K/ul 06/08/2016 Cbc With Differential Ord2 RBC 4.59 M/ul 06/08/2016 Cbc With Differential Ord2 HGB 12.3 g/dl 06/08/2016 Cbc With Differential Ord2 Neut% 57.0 % 06/08/2016 Cbc With Differential Ord2 HCT 37.1 % 06/08/2016 Cbc With Differential Ord2 Lymph% 24.3 % 06/08/2016 Cbc With Differential Ord2 MCV 80.8 fl 06/08/2016 Cbc With Differential Ord2 Smith% 12.0 % 06/08/2016 Cbc With Differential Ord2 MCH 26.8 pg 06/08/2016 Cbc With Differential Ord2 MCHC 33.2 pg 06/08/2016 Cbc With Differential Ord2 Eos% 5.0 % 06/08/2016 Cbc With Differential Ord2 Baso% 1.7 % 06/08/2016 Cbc With Differential Ord2 PLT 196 K/ul 06/08/2016 Cbc With Differential Ord2 Neut ABS# 3.27 K/ul 06/08/2016 Cbc With Differential Ord2 RDW 16.0 % 06/08/2016 Cbc With Differential Ord2 Lymph ABS# 1.40 K/ul 06/08/2016 Cbc With Differential Ord2 Smith ABS# 0.7 K/ul 06/08/2016 Cbc With Differential Ord2 Eos ABS# 0.3 K/ul 06/08/2016 Cbc With Differential Ord2 Baso ABS# 0.1 K/ul 06/08/2016 %Hba1C Tow406 % HbA1c 17479-7 6.2 % 06/08/2016 %Hba1C Lgl793 Gluc Ave 131 mg/dL 06/08/2016 Comp Metabolic Pwx399 NA 138 mEq/L 06/08/2016 Comp Metabolic Sqi465 K 3.9 mEq/L 06/08/2016 Comp Metabolic Pkd595 CL 105 mEq/L 06/08/2016 Comp Metabolic Rgm905 CO2 27.0 mEq/L 06/08/2016 Comp Metabolic Brl486 AN ION GAP 10 06/08/2016 Comp Metabolic Gto339 GL UCOSE 127 mg/dL 06/08/2016 Comp Metabolic Ndo784 Cr eat 1.0 mg/dL 06/08/2016 Comp Metabolic Qyc194 eG FR 59 ml/min/1.73m2 06/08 Comp Metabolic Cin454 BUN 19 mg/dL 06/08/2016 Comp Metabolic Cee618 B/ C Ratio 19.4 Ratio 06/08/2016 Comp Metabolic Gqk687 CA LCIUM 9.2 mg/dL 06/08/2016 Comp Metabolic Fyv070 AL K PHOS 77 U/L 06/08/2016 Comp Metabolic Ehh518 T(SGOT) 19 U/L 06/08/2016 Comp Metabolic Xkz434 AL T(SGPT) 13 U/L 06/08/2016 Comp Metabolic Ldg842 BI LI T 0.5 mg/dL 06/08/2016 Comp Metabolic Ffn790 AL BUMIN 3.8 g/dL 06/08/2016 Comp Metabolic Ewr902 TP RO 6.6 g/dL 06/08/2016 Comp Metabolic Hhg119 GL OB 2.8 g/dL 06/08/2016 Comp Metabolic Nfo427 A/ G Ratio 1.4 Ratio 06/08/2016 Comp Metabolic Ioj951 Os mo 280 mOsmo 06/08/2016 Pt Crx2393 PT 36.1 seconds 06/08/2016 Pt Xyk3249 INR 3.9 06/08/2016 Pt Vie6555 Low Intensity - 1.5-2.0 06/08/2016 Pt Qaw5557 Mod intensity - 2.0-3.0 06/08/2016 Pt Fts4923 Hi intensity - 3.0-4.0 06/08/2016 Lipid Ord30 CHOL 149 mg/dL 06/08/2016 Lipid Ord30 HDL 46.0 mg/dl 06/08/2016 Lipid Ord30 TRIG 279 mg/dL 06/08/2016 Lipid Ord30 LDL 47 mg/dL 06/08/2016 Lipid Ord30 C/HDL 3.2 Ratio 06/08/2016 Pt Awd5831 PT 30.9 seconds 02/12/2016 Pt Yip4358 INR 3.2 02/12/2016 Pt Hrt2798 Low Intensity - 1.5-2.0 02/12/2016 Pt Xtn6661 Mod intensity - 2.0-3.0 02/12/2016 Pt Rbt2967 Hi intensity - 3.0-4.0 02/12/2016 Free T4 Oip346 FREE T4 1.24 ng/dL 09/27/2015 %Hba1C Cbi811 % HbA1c 15756-2 6.4 % 09/27/2015 %Hba1C Rcz054 Gluc Ave 137 mg/dL 09/27/2015 Tsh Ord6 hTSH II 0.37 uIU/mL 09/27/2015 Pt Epg1208 PT 26.2 seconds 09/27/2015 Pt Wle2553 INR 2.5 09/27/2015 Pt Tfp5033 Low Intensity - 1.5-2.0 09/27/2015 Pt Hgv1167 Mod intensity - 2.0-3.0 09/27/2015 Pt Efx2269 Hi intensity - 3.0-4.0 09/27/2015 Pt Jzw3205 PT 27.6 seconds 2015 Pt Wfc8055 INR 2.7 2015 Pt Jxy7505 Low Intensity - 1.5-2.0 2015 Pt Zeo6836 Mod intensity - 2.0-3.0 2015 Pt Qwu6358 Hi intensity - 3.0-4.0 2015 %Hba1C Ltz786 % HbA1c 22518-2 6.1 % 06/11/2015 %Hba1C Xpo958 Gluc Ave 128 mg/dL 06/11/2015 Cbc With [...] Ord2 RDW 15.8 % 06/10/2015 Comp Metabolic Nzl574 NA 139 mEq/L 06/10/2015 Comp Metabolic Gca586 K 4.1 mEq/L 06/10/2015 Comp Metabolic Zvp580 CL 105 mEq/L 06/10/2015 Comp Metabolic Qug485 CO2 27.0 mEq/L 06/10/2015 Comp Metabolic Yts026 AN ION GAP 11 06/10/2015 Comp Metabolic Cto434 GL UCOSE 127 mg/dL 06/10/2015 Comp Metabolic Ztj824 Cr eat 1.0 mg/dL 06/10/2015 Comp Metabolic Wvp587 eG FR 59 ml/min/1.73m2 06/10 Comp Metabolic Hhj721 BUN 21 mg/dL 06/10/2015 Comp Metabolic Ohd782 B/ C Ratio 21.2 Ratio 06/10/2015 Comp Metabolic Khl587 CA LCIUM 9.2 mg/dL 06/10/2015 Comp Metabolic Jwp214 AL K PHOS 87 U/L 06/10/2015 Comp Metabolic Kiu789 T(SGOT) 20 U/L 06/10/2015 Comp Metabolic Bpy183 AL T(SGPT) 17 U/L 06/10/2015 Comp Metabolic Hbx896 BI LI T 0.4 mg/dL 06/10/2015 Comp Metabolic Nix405 AL BUMIN 4.1 g/dL 06/10/2015 Comp Metabolic Kew863 TP RO 7.2 g/dL 06/10/2015 Comp Metabolic Drw842 GL OB 3.1 g/dL 06/10/2015 Comp Metabolic Nss386 A/ G Ratio 1.3 Ratio 06/10/2015 Comp Metabolic Piu701 Os mo 282 mOsmo 06/10/2015 Tsh Ord6 hTSH II 0.86 uIU/mL 06/10/2015 Lipid Ord30 CHOL 161 mg/dL 06/10/2015 Lipid Ord30 HDL 49.0 mg/dl 06/10/2015 Lipid Ord30 TRIG 208 mg/dL 06/10/2015 Lipid Ord30 LDL 70 mg/dL 06/10/2015 Lipid Ord30 C/HDL 3.3 Ratio 06/10/2015 Pt Uil7855 PT 25.0 seconds 04/09/2015 Pt Ahs9104 INR 2.4 04/09/2015 Pt Mes3021 Low Intensity - 1.5-2.0 04/09/2015 Pt Woq1496 Mod intensity - 2.0-3.0 04/09/2015 Pt Lwh2456 Hi intensity - 3.0-4.0 04/09/2015 Free T4 Hmr499 FREE T4 1.05 ng/dL 01/22/2015 Pt Yib8333 PT 27.2 seconds 01/22/2015 Pt Zpn0283 INR 2.6 01/22/2015 Pt Vqa6101 Low Intensity - 1.5-2.0 01/22/2015 Pt Gsd2498 Mod intensity - 2.0-3.0 01/22/2015 Pt Jew5211 Hi intensity - 3.0-4.0 01/22/2015 Cbc With [...] Differential Ord2 RDW 15.2 % 01/22/2015 B12 Ecf558 B12 402.00 pg/ml 01/22/2015 Tsh Ord6 hTSH II 0.65 uIU/mL 01/22/2015 Lipid Ord30 CHOL 166 mg/dL 01/22/2015 Lipid Ord30 HDL 48.0 mg/dl 01/22/2015 Lipid Ord30 TRIG 264 mg/dL 01/22/2015 Lipid Ord30 LDL 65 mg/dL 01/22/2015 Lipid Ord30 C/HDL 3.5 Ratio 01/22/2015 Comp Metabolic Efk097 NA 138 mEq/L 01/22/2015 Comp Metabolic Rba891 K 4.1 mEq/L 01/22/2015 Comp Metabolic Skh295 CL 104 mEq/L 01/22/2015 Comp Metabolic Owe601 CO2 29.0 mEq/L 01/22/2015 Comp Metabolic Yav909 AN ION GAP 9 01/22/2015 Comp Metabolic Llg542 GL UCOSE 106 mg/dL 01/22/2015 Comp Metabolic Bvc553 Cr eat 0.9 mg/dL 01/22/2015 Comp Metabolic Wjk529 eG FR 63 ml/min/1.73m2 01/22 Comp Metabolic Okf147 BUN 21 mg/dL 01/22/2015 Comp Metabolic Xyj021 B/ C Ratio 22.3 Ratio 01/22/2015 Comp Metabolic Ycf082 CA LCIUM 9.4 mg/dL 01/22/2015 Comp Metabolic Ctb316 AL K PHOS 83 U/L 01/22/2015 Comp Metabolic Arf597 T(SGOT) 23 U/L 01/22/2015 Comp Metabolic Xdc209 AL T(SGPT) 18 U/L 01/22/2015 Comp Metabolic Dua500 BI LI T 0.8 mg/dL 01/22/2015 Comp Metabolic Afv711 AL BUMIN 4.2 g/dL 01/22/2015 Comp Metabolic Ifh066 TP RO 7.3 g/dL 01/22/2015 Comp Metabolic Msc826 GL OB 3.1 g/dL 01/22/2015 Comp Metabolic Asn977 A/ G Ratio 1.4 Ratio 01/22/2015 Comp Metabolic Vkw901 Os mo 279 mOsmo 01/22/2015 Review of Systems System Result Effective Dates Constitutional No recent illness 11/02/2016 Constitutional No [...] Result Effective Dates Notes Full Exam - General 1994 Constitutional general [...] large hernia - mildl y TTP Procedures No Procedures data Vital Signs Date Vital 11/02/2016 Blood Pressure 1: 144/72 Code: 8480-6 BMI: 46.1 Code: 86563-9 Heart Rate 1: 78 bpm Height: 5'1" SpO2: 98% Weight: 244 lbs 09/30/2016 Blood Pressure 1: 130/76 Code: 8480-6 BMI: 45.0 Code: 22350-5 Heart Rate 1: 86 bpm Height: 5'1" SpO2: 98% Weight: 238 lbs 09/10/2016 Blood Pressure 1: 136/68 Code: 8480-6 BMI: 46.3 Code: 30691-3 Heart Rate 1: 83 bpm Height: 5'1" SpO2: 98% Weight: 245 lbs 08/20/2016 Blood Pressure 1: 142/78 Code: 8480-6 BMI: 45.3 Code: 14462-6 Heart Rate 1: 84 bpm Height: 5'1" SpO2: 99% Weight: 240 lbs 06/08/2016 Blood Pressure 1: 134/76 Code: 8480-6 BMI: 44.2 Code: 61595-3 Heart Rate 1: 86 bpm Height: 5'1" SpO2: 96% Weight: 234 lbs 04/02/2016 Blood Pressure 1: 142/70 Code: 8480-6 BMI: 44.6 Code: 40944-1 Heart Rate 1: 78 bpm Height: 5'1" SpO2: 97% Weight: 236 lbs 01/14/2016 Blood Pressure 1: 146/72 Code: 8480-6 BMI: 44.2 Code: 02429-4 Heart Rate 1: 86 bpm Height: 5'1" SpO2: 96% Weight: 234 lbs 10/02/2015 Blood Pressure 1: 158/76 Code: 8480-6 BMI: 44.2 Code: 16407-6 Heart Rate 1: 67 bpm Height: 5'1" SpO2: 97% Weight: 234 lbs 07/15/2015 Blood Pressure 1: 148/78 Code: 8480-6 Blood Pressure 1: 200/90 Code: 8480-6 BMI: 44.0 Code: 73668-1 Heart Rate 1: 89 bpm Height: 5'1" SpO2: 97% Weight: 233 lbs 06/10/2015 Blood Pressure 1: 140/82 Code: 8480-6 BMI: 44.0 Code: 24026-7 Heart Rate 1: 78 bpm Height: 5'1" SpO2: 93% Weight: 233 lbs 01/22/2015 Blood Pressure 1: 136/64 Code: 8480-6 Heart Rate 1: 82 bpm Height: SpO2: 98% Weight: 225 lbs Functional Status No Functional Status data History of Present Illness Symptom Name Status Resu lt Effective Date Notes hypertension Quality int ermittent 11/02/2016 None hypertension [...] wearing crocs and there was a new andorran on the floor: her foot didn't move [...] Encounters Encounter Performer Loca tion Codes Date ([id number]) [id number] EST. P ATIENT, LEVEL IV Diagnosis: Essential (primary) hypertension[ICD10: I10] Diagnosis: Localized edema[ICD10: R60.0] Diagnosis: Pain in right hip[ICD10: M25.551] [facility] CPT-4: 29969 11/02/2016 ([id number] [id number] EST. P ATIENT, LEVEL IV Diagnosis: Essential (primary) hypertension[ICD10: I10] Diagnosis: Localized edema[ICD10: R60.0] [facility] CPT-4: 72461 09/30/2016 [id number] EST. PATIENT, LEVEL IV Diagnosis: Localized edema[ICD10: R60.0] Diagnosis: Pain in joints of left hand[ICD10: M25.542] Diagnosis: Pain in joints of right hand[ICD10: M25.541] [facility] CPT-4: 25008 09/10/2016 83500 EST. PATIENT, LEVEL IV Diagnosis: Localized edema[ICD10: R60.0] Diagnosis: Pain in joints of left hand[ICD10: M25.542] Diagnosis: Pain in joints of right hand[ICD10: M25.541] Diagnosis: Other fatigue[ICD10: R53.83] Nata Almanza MD, [facility] CPT-4: 58015 08/20/2016 95598 EST. PATIENT, LEVEL IV Diagnosis: Essential (primary) hypertension[ICD10: I10] Diagnosis: Other intermodal 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rent) drug therapy[ICD10: Z79.899] Diagnosis: Tinnitus, bilateral[ICD10: H93.13] Nata Almanza MD, [facility] CPT-4: 06685 06/08/2016 [id number] EST. PATIENT, LEVEL IV Diagnosis: Other allergic rhinitis[ICD10: J30.89] Diagnosis: Acute laryngopharyngitis[ICD10: J06.0] Nata Almanza MD, [facility] CPT-4: 38524 04/02/2016 55560 EST. PATIENT, LEVEL IV Diagnosis: Left upper quadrant pain[ICD10: R10.12] Nata Almanza MD, [facility] CPT-4: 35747 01/14/2016 24326 EST. PATIENT, LEVEL IV Diagnosis: Pain in left shoulder[ICD10: M25.512] Diagnosis: Body mass index (BMI) 40.0-44.9, adult[ICD10: Z68.41] Nata Almanza MD, [facility] CPT-4: 27711 10/02/2015 34003 EST. PATIENT, LEVEL IV Diagnosis: Pain in left leg[ICD10: M79.605] Diagnosis: Other intermodal 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rent) drug therapy[ICD10: Z79.899] Nata Almanza MD, [facility] CPT-4: 79557 07/15/2015 ([id number]) 61912 EST. 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: Other intermodal 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rent) drug therapy[ICD10: Z79.899] [facility] CPT-4: 33637 06/10/2015 ([id number]) OFFICE VISI Parul [facility] - LEVEL 4 Diagnosis: ESSENTIAL HYPERTENSION[ICD9: 401.9] Diagnosis: HYPOTHYROIDISM[ICD9: 244.9] Diagnosis: ENCNTR LONG-RX USE NEC[ICD9: V58.69] Diagnosis: HYPERLIPIDEMIA[ICD9: 272.4] Diagnosis: Vitamin B12 deficiency[ICD9: 266.2] Diagnosis: Status post gastric surgery[ICD9: V45.89] Diagnosis: Snoring[ICD9: 786.09] [facility] CPT-4: 14503 01/22/2015 Plan of Care Planned Activity Notes C odes Status Date Visit Plan: Hypertension - well controll ed - continue with current medications, continue with no added salt diet. Pt has been encouraged to exercise daily.The pt has been advised to call the office if there are any acute concerns about change in blood pressure readings at home.Edema - pt has been advised to elevate legs to prevent dependent edema, compression has been recommended to help to naturally decrease peripheral edema. Diuretic use has been discussed and pt has been instructed in appropriate use of such medication as necessary to further attempt to reduce peripheral edema.Pain in right hip - recommended pt to have xray today of hip. - may need injection from dr. Chaney. 11/02/2016 Appointment: Sarai Almanzatel: [address] [place], [place] [id number] (15 min) Moderate 11/02/2016 Patient Education: Patient Medication Summary Completed 11/02/2016 Patient Education: Obesity Completed 11/02/2016 Patient Education: Patient Medication Summary Completed 10/08/2016 Visit Plan: Hypertension - well controll ed - continue with current medications, continue with no added salt diet. Pt has been encouraged to exercise daily.The pt has been advised to call the office if there are any acute concerns about change in blood pressure readings at home.Edema - pt has been advised to elevate legs to prevent dependent edema, compression has been recommended to help to naturally decrease peripheral edema. Diuretic use has been discussed and pt has been instructed in appropriate use of such medication as necessary to further attempt to reduce peripheral edema. 09/30/2016 Appointment: Sarai Almanzal: [phone] [facility] (15 min) Moderate 09/30/2016 Patient Education: Patient Medication Summary Completed 09/30/2016 Patient Education: Obesity Completed 09/30/2016 Patient Education: Hypertension Completed 09/30/2016 Patient Education: Patient Medication Summary Completed 09/18/2016 Care Plan: Metabolic Ordered 09/18/2016 Visit Plan: Edema - pt has been advised to elevate legs to prevent dependent edema, compression has been recommended to help to naturally decrease peripheral edema. Diuretic use has been discussed and pt has been instructed in appropriate use of such medication as necessary to further attempt to reduce peripheral edema. 09/10/2016 Appointment: Nata Hsu WPtel: [facility] [facility] (30 min) Complex 09/10/2016 Patient Education: Patient Medication Summary Completed 09/10/2016 Visit Plan: Joint complaints, fatigue - will check labs, [...] edema. 08/20/2016 Appointment: Nata Hsu WPtel: [phone] [facility] (30 min) Complex 08/20/2016 Patient Education: Patient Medication Summary Completed 08/20/2016 Referral: Otf Lee [id number] Referral Initiated 07/02/2016 Visit Plan: Chronic Anticoagulant use - Pt has been counseled about the anticoagulant, need for serial monitoring, and need for the pt to alert the physician as to any new bruising, or acute bleeding. Therapeutic goal for INR is between 2.0 and 3.5. - Current level 3.9, will have pt hold coumadin for 2 days, then repeat PT INR on Wednesday.Tinnitus - ongoing, was originally improved after starting flonase, but pt states that the symptoms are worsening now - Will refer to Dr. Lee 06/08/2016 Patient Education: Patient Medication Summary Completed 06/08/2016 Care Plan: Referral Order SNOMED-CT : [id number] Pending 06/08/2016 Visit Plan: URI - Pt advised to increase fluids, vitamin C. Discussed natural and expected course of this diagnosis and need to alert me if symptoms do not follow expected course, or if any worse. RX sent to patient's pharmacy.Allergies - chronic - recommended pt to use allergy medication as prescribed. Pt has been counseled as to the appropriate use of the medication. Pt to call if allergy symptoms are not controlled with the medication.If using nasal spray, instructions as follows: Nasal spray- use twice daily, one spray per nostril twice daily, after 30 minutes, rinse out nose with saline spray.. Use opposite hand per nostril to spray in the nasal steroid allergy spray. 04/02/2016 Appointment: [facility]su [phone] ([facility] Complex 04/02/2016 Patient Education: Patient Medication Summary Completed 04/02/2016 Patient Education: Obesity Completed 04/02/2016 Visit Plan: right upper quadrant pain - pt states that over the [...] acute pain 01/14/2016 Appointment: Edna Douglas WPtel: [phone] (30 min) Complex 01/14/2016 Patient Education: Patient Medication Summary Completed 01/14/2016 Patient Education: Obesity Completed 01/14/2016 Care Plan: BMI Above normal followup DAVID F-MGMT EDUC & TRAIN 1 PT Pending 10/24/2015 Care Plan: X-RAY EXAM OF SHOULDER LOINC : 07306-1 Pending 10/24/2015 Visit Plan: Left shoulder pain - pt stat es that she noticed left shoulder pain after [...] weight check. 10/02/2015 Appointment: Ed[facility] Douglas [facility]el[facility] [phone] [phone] (15 min) Moderate 10/02/2015 Patient Education: Patient Medication Summary Completed 10/02/2015 Patient Education: Obesity Completed 10/02/2015 Appointment: (15 min) Moderate 09/02/2015 Visit Plan: Pt states that she fell on t he bleachers a few days ago and hit [...] Completed 06/11/2015 Visit Plan: Hypertension - well controll ed - continue with current medications, continue with no added salt diet. Pt has been encouraged to exercise daily.The pt has been advised to call the office if there are any acute concerns about change in blood pressure readings at home.Edema - pt has been advised to elevate legs to prevent dependent edema, compression has been recommended to help to naturally decrease peripheral edema. Diuretic use has been discussed and pt has been instructed in appropriate use of such medication as necessary to further attempt to reduce peripheral edema.Hyperlipidemia - pt has been counseled about appropriate [...] and to assure normal liver response to medications.Right shoulder pain-xray right shoulder-tylenol as directed-hydrocodone in [...] ses Completed 06/10/2015 Appointment: Sarai Almanza WPtel: [phone] [phone] (15 min) Moderate 04/22/2015 Visit Plan: Hypertension - well controll ed - continue with current medications, continue with no added salt diet. Pt has been encouraged to exercise daily.The pt has been advised to call the office if there are any acute concerns about change in blood pressure readings at home.Abdominal hernia - pt to have surgical fixation - planning occurring at [facility].Snoring - Sleep apnea symptoms with difficulty loosing weight, daytime sleepiness - recommended sleep study.Chronic anticoagulation - monitor monthly.Hyperlipidemia - pt has been counseled about appropriate [...] to medications. 01/22/2015 Appointment: [facility]el[facility] [phone] [facility] [place] [facility] New Patient 01/22/2015 Patient Education: Patient Medication Summary Completed 01/22/2015 Patient Education: Hypertension Completed 01/22/2015 Referral: Otf Lee [id number] [place] Referral Initiated Instructions Comment . Chronic [...] - Will refer to Dr. Lee . Edema - pt has bee n [...] may need injection from dr. Chaney. . URI - Pt advised t o [...] for INR is between 2.[address] almanza will hav e the staff [...] - planning occurring at [facility]. Snoring - Sleep apnea symptoms with [...]
--- OUTSIDE RECORDS SUMMARY | 2020-01-16 23:05 | XMS REPORT | CCD ---
Author Author Kat Almanza Organization Sarai Almanza MD, [facility] Address [address] [place] [address] Phone Care Team Providers Care Biotechnologist Name Role Phone PP Unavailable CCM Unavailable Summary Purpose Interface Exchange Insurance Providers Payer name Policy type / Coverage type Covered libertarian ID Effective Begin Date Effective End Date [facility] [id number] 2015 Unknown Secret Sales Benefit MiArch [id number] 2015 Unknown Family history Father Diagnosis Age At Onset Hyperlipidemia Unknown Heart Attack Unknown Mother Diagnosis Age At Onset Arthritis Unknown Social History Social History Element Codes Description Effective Dates Marital status Unknown M arried Nathan 09/30/2016 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 Number of children Unknown 3 01/22/[address]: 078526915 Never smoker 01/22/[address]: 930227559 Never drinks alcohol 01/22/2015 Allergies, Adverse Reactions, [...] ICD-9: 780.79 ICD-10: R53.83 08/20/2016 Active 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 ICD-9: V58.69 ICD-10: [...] Date Stop Date Sta tus Fill Instructions Lasix 20 mg tablet RxNorm: 584656 1 Tablet(s) PO daily 12/24/2016 04/22/2017 Active Synthroid 137 mcg ta blet RxNorm: 326622 TAKE 1 TABLET BY MOUT H ONCE DAILY 11/24/2016 05/22/2017 Ac tive Generic For:SYNTHROID 137MCG TAB 2016 9:04:37 AM Coumadin 4 mg tablet RxNorm: 601658 TAKE 1 TABLET BY MOUTH THREE TIMES PER W [place] (WEDNESDAY, WEDNESDAY AND WEDNESDAY) 11/24/2016 01/22/2017 Active Generic For:COUMADIN 4MG 11/24/2016 9:04:41 AM hydrocodone 5 mg-humberto taminophen 325 mg tablet RxNorm: 340235 1-2 Tablet(s) PO Q6 P RN 11/17/2016 No Stop Date Active Carafate 1 gram tablet RxNorm: 793089 TAKE ONE TABLET BY MOUTH TWICE DAILY 10/27/2016 05/24/2017 Ac tive Generic For:CARAFATE 1GM 10/26/2016 8:3 9:42 AM allopurinol 300 mg t ablet RxNorm: 217190 Tablet(s) TAKE 1 TABL ET BY MOUTH ONCE DAILY. 10/26/2016 04/23/2017 Ac tive Lipitor 40 mg tablet RxNorm: 518376 1 Tablet(s) PO daily 09/25/2016 09/19/2017 Active Zetia 10 mg tablet RxNorm: 576819 1 Tablet(s) PO daily 09/25/2016 01/22/2017 Active gave 1 month of samples Coumadin 4 mg tablet RxNorm: 350937 TAKE 1 TABLET BY MOUTH THREE TIMES PER W [place] (WEDNESDAY, WEDNESDAY AND WEDNESDAY) 09/25/2016 11/23/2016 Inactive Generic For:COUMADIN 4MG 09/25/2016 8:55:58 AM clonazepam 0.5 mg ta blet RxNorm: 512224 1 Tablet(s) PO BID 09/21/2016 02/17/2017 Active potassium chloride 2 0 mEq/15 mL oral liquid RxNorm: 709389 Milliliter(s) 30 Milliliter(s) (40mEq) PO daily 09/15/2016 01/12/2017 Active Lasix 20 mg tablet RxNorm: 750810 1 Tablet(s) PO daily 09/15/2016 12/23/2016 Inactive Lasix 20 mg tablet RxNorm: 526186 2 Tablet(s) PO daily 09/10/2016 09/12/2016 Inactive Lasix 20 mg tablet RxNorm: 430055 1 Tablet(s) PO daily 08/28/2016 08/30/2016 Inactive Lasix 20 mg tablet RxNorm: 175745 1 Tablet(s) PO daily 08/20/2016 08/22/2016 Inactive Detrol LA 4 mg capsu le,extended release RxNorm: 275508 TAKE 1 CAPSULE BY JAVON TH ONCE DAILY 07/27/2016 02/21/2017 Active Generic For:DETROL LA 4MG CA P 07/27/2016 9:08:27 AM omeprazole 20 mg cap chicho,delayed release RxNorm: 902903 Capsule(s) PO TAKE 1 CAPSULE BY MOUTH ONCE DAILY 07/27/2016 01/22/2017 Active Coumadin 4 mg tablet RxNorm: 336875 1 Tablet(s) PO 3 x week wed and sun 07/27/2016 09/24/2016 In active venlafaxine ER 75 mg capsule,extended release 24 hr RxNorm: 508274 1 Capsule(s) PO daily 06/29/2016 06/23/2017 Active sodium bicarbonate 6 50 mg tablet RxNorm: 551969 TAKE 2 TABLETS BY JAVON TH TWICE DAILY 06/29/2016 12/25/2016 Ac tive 06/27/2016 9:05:39 AM Coumadin 4 mg tablet RxNorm: 199143 1 Tablet(s) PO 3 x week wed and sun 06/09/2016 06/08/2016 In active Coumadin 4 mg tablet RxNorm: 218473 1 Tablet(s) PO 3 x week tue throbbi and sun 06/09/2016 07/26/2016 In active Zetia 10 mg tablet RxNorm: 586139 1 Tablet(s) PO daily 06/09/2016 06/08/2016 Inactive gave 1 month of samples Zetia 10 mg tablet RxNorm: 454468 1 Tablet(s) PO daily 06/09/2016 09/24/2016 Inactive gave 1 month of samples spironolactone 25 mg tablet RxNorm: 894688 1 Tablet(s) PO daily 06/08/2016 06/02/2017 Active Effexor 75 mg tablet RxNorm: 816350 1 Tablet(s) PO daily 06/08/2016 06/28/2016 Inactive Synthroid 137 mcg ta blet RxNorm: 527162 1 Tablet(s) PO daily 05/07/2016 11/02/2016 Inactive allopurinol 300 mg t ablet RxNorm: 011441 Tablet(s) TAKE 1 TABL ET BY MOUTH ONCE DAILY. 04/28/2016 10/24/2016 Inactive clonazepam 0.5 mg ta blet RxNorm: 819569 1 Tablet(s) PO BID 04/20/2016 09/15/2016 Inactive Flonase Allergy Reli ef 50 mcg/actuation nasal spray,suspension RxNorm: 7522398 1 [place] NASAL BID 04/02/2016 No Stop Date Active Zithromax Z-Thomas 250 mg tablet RxNorm: 309517 Tablet(s) PO 04/02/2016 08/27/2016 Inactive cetirizine 10 mg tablet RxNorm: 7334299 1 Tablet(s) PO daily 04/02/2016 05/01/2016 Inactive Carafate 1 gram tablet RxNorm: 369221 Tablet(s) TAKE 1 TABLET TWICE A DAY FOR 30 DAYS 03/30/2016 10/25/2016 Inactive Generic For:CARAFATE 1GM 02/08/2015 12:3 6:39 PM Plavix 75 mg tablet RxNorm: 600986 1 Tablet(s) PO daily 03/11/2016 09/06/2016 Inactive sodium bicarbonate 6 50 mg tablet RxNorm: 150233 Tablet(s) 2 Tablet(s) PO BID 02/28/2016 06/26/2016 In active omeprazole 20 mg cap chicho,delayed release RxNorm: 943404 Capsule(s) PO TAKE 1 CAPSULE BY MOUTH ONCE DAILY 01/31/2016 07/26/2016 Inactive Fish Oil 1,000 mg ca psule RxNorm: 1 Capsule(s) PO BID 01/14/2016 No Stop Date Active Synthroid 137 mcg ta blet RxNorm: 749810 1 Tablet(s) PO daily 01/14/2016 05/06/2016 Inactive Detrol LA 4 mg capsu le,extended release RxNorm: 467004 TAKE 1 CAPSULE BY JAVON TH ONCE DAILY 12/30/2015 07/26/2016 Inactive Generic For:DETROL LA 4MG C AP 12/30/2015 9:11:01 AM potassium chloride 2 0 mEq/15 mL oral liquid RxNorm: 666068 Milliliter(s) 30 Milliliter(s) (40mEq) PO daily 12/02/2015 03/30/2016 Inactive sodium bicarbonate 6 50 mg tablet RxNorm: 619685 Tablet(s) 2 Tablet(s) PO BID 10/31/2015 02/27/2016 In active Lipitor 40 mg tablet RxNorm: 290602 1 Tablet(s) PO daily 10/09/2015 09/24/2016 Inactive sodium bicarbonate 6 50 mg tablet RxNorm: 454857 2 Tablet(s) PO BID 10/01/2015 10/30/2015 Inactive allopurinol 300 mg t ablet RxNorm: 947192 TAKE 1 TABLET BY MOUT H ONCE DAILY. 10/01/2015 04/27/2016 In active Generic For:ZYLOPRIM 300 MG TABLET 09/19 9:21:15 AM clonazepam 0.5 mg ta blet RxNorm: 070808 1 Tablet(s) PO BID 09/30/2015 04/19/2016 Inactive Coumadin 5 mg tablet RxNorm: 141886 1 Tablet(s) PO daily 09/27/2015 No Stop Date Active Generic For:COUMADIN 5MG TAB N O T I C E PRESCRIPTION PREVIOUSLY AUTHORIZED BY DOCTOR:BOBBY ZULETA Synthroid 125 mcg ta blet RxNorm: 334891 1 Tablet(s) PO daily 09/27/2015 09/26/2015 Inactive Synthroid 125 mcg ta blet RxNorm: 674689 1 Tablet(s) PO daily 09/27/2015 01/13/2016 Inactive Carafate 1 gram tablet RxNorm: 883365 Tablet(s) TAKE 1 TABLET TWICE A DAY FOR 30 DAYS 09/02/2015 03/29/2016 Inactive Generic For:CARAFATE 1GM 02/08/2015 12:3 6:39 PM sodium bicarbonate 6 50 mg tablet RxNorm: 998589 2 Tablet(s) PO BID 09/02/2015 09/30/2015 Inactive Prilosec 20 mg capsu le,delayed release RxNorm: 377053 TAKE 1 CAPSULE BY JAVON TH ONCE DAILY 08/02/2015 01/28/2016 Inactive Generic For:PRILOSEC 20MG 08/02/2015 10:03:09 AM N O T I C E PRESCRIPTION PREVIOUSLY AUTHORIZED BY DOCTOR:BOBBY ZULETA Zyrtec 10 mg capsule RxNorm: 9976882 1 Capsule(s) PO daily 07/15/2015 08/13/2015 Inactive Keflex 500 mg capsule RxNorm: 736147 1 Capsule(s) PO TID 07/15/2015 07/21/2015 Inactive cetirizine 10 mg cap chicho RxNorm: 4849582 1 Capsule(s) PO daily 07/15/2015 08/13/2015 Inactive hydrocodone 5 mg-humberto taminophen 325 mg tablet RxNorm: 286640 1-2 Tablet(s) PO Q6 P RN 06/10/2015 11/16/2016 In active sodium bicarbonate 6 50 mg tablet RxNorm: 595018 2 Tablet(s) PO BID 06/03/2015 08/31/2015 Inactive Detrol LA 4 mg capsu le,extended release RxNorm: 583139 TAKE 1 CAPSULE BY JAVON TH ONCE DAILY 06/03/2015 12/29/2015 Inactive Generic For:DETROL LA 4MG C AP N O T I C E PRESCRIPTION PREVIOUSLY AUTHORIZED BY DOCTOR:BOBBY ZULETA atenolol 50 mg tablet RxNorm: 629801 1 Tablet(s) PO daily TAKE 1 TABLET BY [facility] DAILY 05/07/2015 04/30/2016 Inactive Generic For:TENORMIN 50MG 05/04/2015 9:07:22 AM spironolactone 25 mg tablet RxNorm: 398417 1 Tablet(s) PO daily 05/06/2015 06/07/2016 Inactive venlafaxine ER 75 mg capsule,extended release 24 hr RxNorm: 591902 1 Capsule(s) PO daily 05/04/2015 06/28/2016 Inactive atenolol 50 mg tablet RxNorm: 674286 TAKE 1 TABLET BY MOUTH DAILY 05/04/2015 05/06/2015 Inactive Generic For:TENORMIN 50MG 05/04/2015 9: 07:22 AM Synthroid 150 mcg ta blet RxNorm: 255584 TAKE 1 TABLET BY MOUT H ONCE DAILY. 04/05/2015 09/26/2015 In active Generic For:SYNTHROID 150MCG TAB 2014 4:45:40 PM N O T I C E PRESCRIPTION PREVIOUSLY AUTHORIZED BY DOCTOR:BOBBY ZULETA Effexor 75 mg tablet RxNorm: 956094 1 Tablet(s) PO daily 04/05/2015 07/03/2015 Inactive Coumadin 5 mg tablet RxNorm: 311096 TAKE 1 AND 1/2 TABLETS BY MOUTH ONCE MYRANDA LY 04/04/2015 09/26/2015 In active Generic For:COUMADIN 5MG TAB N O T I C E PRESCRIPTION PREVIOUSLY AUTHORIZED BY DOCTOR:BOBBY ZULETA clonazepam 0.5 mg ta blet RxNorm: 061917 1 Tablet(s) PO BID 03/13/2015 11/05/2015 Inactive sodium bicarbonate 6 50 mg tablet RxNorm: 319705 2 Tablet(s) PO BID 03/08/2015 06/02/2015 Inactive allopurinol 300 mg t ablet RxNorm: 585350 TAKE 1 TABLET BY MOUT H ONCE DAILY. 03/05/2015 09/30/2015 In active N O T I C E PRESCRIPTION PREVIOUSLY A UTHORIZED BY DOCTOR:BOBBY ZULETA Plavix 75 mg tablet RxNorm: 510771 1 Tablet(s) PO daily 02/12/2015 09/09/2015 Inactive clonazepam 0.5 mg ta blet RxNorm: 657659 1 Tablet(s) PO BID 02/11/2015 03/11/2015 Inactive Carafate 1 gram tablet RxNorm: 966096 TAKE 1 TABLET TWICE A DAY FOR 30 DAYS 02/08/2015 02/07/2015 In active Generic For:CARAFATE 1GM 02/08/2015 12:3 6:39 PM Carafate 1 gram tablet RxNorm: 233606 Tablet(s) TAKE 1 TABLET TWICE A DAY FOR 30 DAYS 02/08/2015 09/01/2015 Inactive Generic For:CARAFATE 1GM 02/08/2015 12:3 6:39 PM potassium chloride 2 0 mEq/15 mL oral liquid RxNorm: 516633 30 Milliliter(s) (40m Eq) PO daily 02/05/2015 12/01/2015 Inactive atenolol 50 mg tablet RxNorm: 750478 1 Tablet(s) PO daily 02/04/2015 05/03/2015 Inactive [SAVINGS FOR NON-COVERED DRUGS -- BIN:3584, PCN: [id number], Group: XXXXX, ID# [id number], Questions: . THIS IS NOT INSURANCE.] potassium chloride 2 0 mEq/15 mL oral liquid RxNorm: 266507 30 Milliliter(s) (40m Eq) PO daily 01/08/2015 02/04/2015 Inactive potassium chloride 2 0 mEq/15 mL oral liquid RxNorm: 938032 30 Milliliter(s) (40m Eq) PO daily 12/07/2014 01/07/2015 Inactive atenolol 50 mg tablet RxNorm: 926994 1 Tablet(s) PO daily 11/09/2014 11/08/2014 Inactive atenolol 50 mg tablet RxNorm: 958309 1 Tablet(s) PO daily 11/09/2014 02/03/2015 Inactive [SAVINGS FOR NON-COVERED DRUGS -- BIN:3584, PCN: ASPROD1, Group: XXXXX, ID# [id number], Questions: . THIS IS NOT INSURANCE.] cranberry 1,000 mg c apsule RxNorm: 220216 1 Capsule(s) PO daily No Start Date Active Voltaren 1 % topical gel RxNorm: 796621 TOP No St art Date Active atenolol 50 mg tablet RxNorm: 070687 1 Tablet(s) PO daily No Start Date Active verapamil ER (HS) 24 0 mg tablet,extended release 24 hr RxNorm: 767154 1 Tablet(s) PO daily No Start Date Active aspirin 81 mg tablet RxNorm: 882907 1 Tablet(s) PO daily No Start Date Active Zofran 4 mg tablet RxNorm: 292872 1 Tablet(s) PO PRN No Start Date Active B12 1000 mcg RxNorm: 1 Tablet(s) PO daily No Start Date Active Lipitor 40 mg tablet RxNorm: 776674 1 Tablet(s) PO daily No Start Date 10/08/2015 Inactive magnesium oxide 400 mg capsule RxNorm: 805244 2 Capsule(s) PO BID No Start Date Active Synthroid 150 mcg ta blet RxNorm: 163740 1 Tablet(s) PO daily No Start Date 04/04/2015 Inactive Coumadin 5 mg tablet RxNorm: 270662 1 Tablet(s) PO daily No Start Date 04/03/2015 Inactive allopurinol 300 mg t ablet RxNorm: 008056 1 Tablet(s) PO daily No Start Date 03/04/2015 Inactive Prilosec 20 mg capsu le,delayed release RxNorm: 843533 1 Capsule(s) PO PRN No Start Date 08/01/2015 Inactive potassium chloride 2 0 mEq/15 mL oral liquid RxNorm: 823854 30 Milliliter(s) (40m Eq) PO daily No Start Date 12/06/2014 Inactive Effexor 75 mg tablet RxNorm: 140959 1 Tablet(s) PO daily No Start Date 04/04/2015 Inactive Carafate 1 gram tablet RxNorm: 783204 1 Tablet(s) PO BID No Start Date 02/07/2015 Inactive clonazepam 0.5 mg ta blet RxNorm: 941687 1 Tablet(s) PO BID No Start Date 02/10/2015 Inactive Plavix 75 mg tablet RxNorm: 580022 1 Tablet(s) PO daily No Start Date 02/11/2015 Inactive sodium bicarbonate 6 50 mg tablet RxNorm: 419470 2 Tablet(s) PO BID No Start Date 09/01/2015 Inactive Fish Oil 1,000 mg ca psule RxNorm: 1 Capsule(s) PO daily No Start Date 01/13/2016 Inactive Detrol LA 4 mg capsu le,extended release RxNorm: 188455 1 Capsule(s) PO daily No Start Date [...] Code Item Item Code Result Date %Hba1C Hmr642 % HbA1c 65484-1 6.4 % 10/23/2016 %Hba1C Qcn077 Gluc Ave 137 mg/dL 10/23/2016 Comp Metabolic Xzz149 NA 138 mEq/L 10/23/2016 Comp Metabolic Fay935 K 3.4 mEq/L 10/23/2016 Comp Metabolic Nqw598 CL 100 mEq/L 10/23/2016 Comp Metabolic Lrn316 CO2 30.0 mEq/L 10/23/2016 Comp Metabolic Gdj666 AN ION GAP 11 10/23/2016 Comp Metabolic Njn149 GL UCOSE 139 mg/dL 10/23/2016 Comp Metabolic Fto259 Cr eat 0.9 mg/dL 10/23/2016 Comp Metabolic Wzo282 eG FR 62 ml/min/1.73m2 10/23 Comp Metabolic Lzx788 BUN 22 mg/dL 10/23/2016 Comp Metabolic Iou620 B/ C Ratio 23.4 Ratio 10/23/2016 Comp Metabolic Xhz971 CA LCIUM 8.7 mg/dL 10/23/2016 Comp Metabolic Djy351 AL K PHOS 66 U/L 10/23/2016 Comp Metabolic Dyu576 T(SGOT) 20 U/L 10/23/2016 Comp Metabolic Tcn802 AL T(SGPT) 10 U/L 10/23/2016 Comp Metabolic Tvm400 BI LI T 0.5 mg/dL 10/23/2016 Comp Metabolic Bpc826 AL BUMIN 3.5 g/dL 10/23/2016 Comp Metabolic Hwk277 TP RO 6.3 g/dL 10/23/2016 Comp Metabolic Zeb976 GL OB 2.8 g/dL 10/23/2016 Comp Metabolic Rxd064 A/ G Ratio 1.3 Ratio 10/23/2016 Comp Metabolic Ygn825 Os mo 281 mOsmo 10/23/2016 Pt Efy4450 PT 26.8 seconds 10/23/2016 Pt Hjt4691 INR 2.7 10/23/2016 Pt Rkm8578 Low Intensity - 1.5-2.0 10/23/2016 Pt Zxs9714 Mod intensity - 2.0-3.0 10/23/2016 Pt Eto9612 Hi intensity - 3.0-4.0 10/23/2016 Pt Bcb8333 PT 28.3 seconds 09/25/2016 Pt Tep2554 INR 2.8 09/25/2016 Pt Bey3332 Low Intensity - 1.5-2.0 09/25/2016 Pt Lwn0701 Mod intensity - 2.0-3.0 09/25/2016 Pt Brm2336 Hi intensity - 3.0-4.0 09/25/2016 Metabolic Ord15 [...] Metabolic Ord15 CALCIUM 8.8 mg/dL 09/25/2016 Pt Nvj1992 PT 30.6 seconds 09/11/2016 Pt Jev5228 INR 3.2 09/11/2016 Pt Aui1695 Low Intensity - 1.5-2.0 09/11/2016 Pt Umu9828 Mod intensity - 2.0-3.0 09/11/2016 Pt Edv3841 Hi intensity - 3.0-4.0 09/11/2016 Comp Metabolic Dxo094 NA 138 mEq/L 09/11/2016 Comp Metabolic Luz936 K 4.4 mEq/L 09/11/2016 Comp Metabolic Gsr811 CL 103 mEq/L 09/11/2016 Comp Metabolic Zuh765 CO2 31.0 mEq/L 09/11/2016 Comp Metabolic Jwv183 AN ION GAP 8 09/11/2016 Comp Metabolic Vme625 GL UCOSE 146 mg/dL 09/11/2016 Comp Metabolic Zaq295 Cr eat 1.0 mg/dL 09/11/2016 Comp Metabolic Oai325 eG FR 60 ml/min/1.73m2 09/11 Comp Metabolic Ocn839 BUN 16 mg/dL 09/11/2016 Comp Metabolic Tjb354 B/ C Ratio 16.5 Ratio 09/11/2016 Comp Metabolic Shg610 CA LCIUM 8.7 mg/dL 09/11/2016 Comp Metabolic Ilo569 AL K PHOS 52 U/L 09/11/2016 Comp Metabolic Qgv362 T(SGOT) 19 U/L 09/11/2016 Comp Metabolic Upa846 AL T(SGPT) 11 U/L 09/11/2016 Comp Metabolic Bjn266 BI LI T 0.7 mg/dL 09/11/2016 Comp Metabolic Vkx654 AL BUMIN 3.3 g/dL 09/11/2016 Comp Metabolic Kob121 TP RO 5.8 g/dL 09/11/2016 Comp Metabolic Umr096 GL OB 2.5 g/dL 09/11/2016 Comp Metabolic Sjz069 A/ G Ratio 1.3 Ratio 09/11/2016 Comp Metabolic Phk727 Os mo 280 mOsmo 09/11/2016 C-Reactive Protein Qnt Crqnt CRP 0.1 mg/dl 08/21/2016 Comp Metabolic Tue210 NA 139 mEq/L 08/21/2016 Comp Metabolic Djx437 K 4.1 mEq/L 08/21/2016 Comp Metabolic Hjj329 CL 102 mEq/L 08/21/2016 Comp Metabolic Gcz048 CO2 30.0 mEq/L 08/21/2016 Comp Metabolic Vpg267 AN ION GAP 11 08/21/2016 Comp Metabolic Sgv165 GL UCOSE 148 mg/dL 08/21/2016 Comp Metabolic Opa851 Cr eat 1.0 mg/dL 08/21/2016 Comp Metabolic Nbq344 eG FR 55 ml/min/1.73m2 08/21 Comp Metabolic Rtx552 BUN 21 mg/dL 08/21/2016 Comp Metabolic Tbw260 B/ C Ratio 20.2 Ratio 08/21/2016 Comp Metabolic Tkj631 CA LCIUM 9.4 mg/dL 08/21/2016 Comp Metabolic Pav058 AL K PHOS 63 U/L 08/21/2016 Comp Metabolic Afg663 T(SGOT) 23 U/L 08/21/2016 Comp Metabolic Vfj970 AL T(SGPT) 16 U/L 08/21/2016 Comp Metabolic Ulh163 BI LI T 0.6 mg/dL 08/21/2016 Comp Metabolic Yyu653 AL BUMIN 3.9 g/dL 08/21/2016 Comp Metabolic Hvb029 TP RO 6.8 g/dL 08/21/2016 Comp Metabolic Uep881 GL OB 2.9 g/dL 08/21/2016 Comp Metabolic Fux316 A/ G Ratio 1.4 Ratio 08/21/2016 Comp Metabolic Ujr447 Os mo 283 mOsmo 08/21/2016 Sed Rate Ord21 ESR 16 mm/hr 08/21/2016 Pt Xeh9584 PT 27.2 seconds 08/21/2016 Pt Qkp0195 INR 2.7 08/21/2016 Pt Exo9518 Low Intensity - 1.5-2.0 08/21/2016 Pt Xba4150 Mod intensity - 2.0-3.0 08/21/2016 Pt Pba9250 Hi intensity - 3.0-4.0 08/21/2016 Magnesium Ord90 Mag 1.9 mg/dL 08/21/2016 Pt Nwg9558 PT 25.9 seconds 06/17/2016 Pt Kij6145 INR 2.5 06/17/2016 Pt Zvk1398 Low Intensity - 1.5-2.0 06/17/2016 Pt Aiu5319 Mod intensity - 2.0-3.0 06/17/2016 Pt Ovd8940 Hi intensity - 3.0-4.0 06/17/2016 Tsh Ord6 hTSH II 2.13 uIU/mL 06/08/2016 Free T4 Scp211 FREE T4 0.79 ng/dL 06/08/2016 Cbc With [...] 80.8 fl 06/08/2016 Cbc With Differential Ord2 Leslie% 12.0 % 06/08/2016 Cbc With Differential Ord2 [...] 1.40 K/ul 06/08/2016 Cbc With Differential Ord2 Leslie ABS# 0.7 K/ul 06/08/2016 Cbc With Differential Ord2 Eos ABS# 0.3 K/ul 06/08/2016 Cbc With Differential Ord2 Baso ABS# 0.1 K/ul 06/08/2016 %Hba1C Fgu858 % HbA1c 63428-8 6.2 % 06/08/2016 %Hba1C Ziw607 Gluc Ave 131 mg/dL 06/08/2016 Comp Metabolic Fhf618 NA 138 mEq/L 06/08/2016 Comp Metabolic Ikp249 K 3.9 mEq/L 06/08/2016 Comp Metabolic Rtq726 CL 105 mEq/L 06/08/2016 Comp Metabolic Zbr691 CO2 27.0 mEq/L 06/08/2016 Comp Metabolic Iim555 AN ION GAP 10 06/08/2016 Comp Metabolic Lwr730 GL UCOSE 127 mg/dL 06/08/2016 Comp Metabolic Ela550 Cr eat 1.0 mg/dL 06/08/2016 Comp Metabolic Jtb561 eG FR 59 ml/min/1.73m2 06/08 Comp Metabolic Wya073 BUN 19 mg/dL 06/08/2016 Comp Metabolic Pvt213 B/ C Ratio 19.4 Ratio 06/08/2016 Comp Metabolic Bll129 CA LCIUM 9.2 mg/dL 06/08/2016 Comp Metabolic Fnq078 AL K PHOS 77 U/L 06/08/2016 Comp Metabolic Jsz481 T(SGOT) 19 U/L 06/08/2016 Comp Metabolic Huw113 AL T(SGPT) 13 U/L 06/08/2016 Comp Metabolic Hem224 BI LI T 0.5 mg/dL 06/08/2016 Comp Metabolic Fpm386 AL BUMIN 3.8 g/dL 06/08/2016 Comp Metabolic Rvh980 TP RO 6.6 g/dL 06/08/2016 Comp Metabolic Jaa089 GL OB 2.8 g/dL 06/08/2016 Comp Metabolic Xnh806 A/ G Ratio 1.4 Ratio 06/08/2016 Comp Metabolic Syy678 Os mo 280 mOsmo 06/08/2016 Pt Zvq4282 PT 36.1 seconds 06/08/2016 Pt Dck4801 INR 3.9 06/08/2016 Pt Bvd8807 Low Intensity - 1.5-2.0 06/08/2016 Pt Pus5194 Mod intensity - 2.0-3.0 06/08/2016 Pt Yih2186 Hi intensity - 3.0-4.0 06/08/2016 Lipid Ord30 CHOL 149 mg/dL 06/08/2016 Lipid Ord30 HDL 46.0 mg/dl 06/08/2016 Lipid Ord30 TRIG 279 mg/dL 06/08/2016 Lipid Ord30 LDL 47 mg/dL 06/08/2016 Lipid Ord30 C/HDL 3.2 Ratio 06/08/2016 Pt Jty7918 PT 30.9 seconds 02/12/2016 Pt Idy9432 INR 3.2 02/12/2016 Pt Gpk7800 Low Intensity - 1.5-2.0 02/12/2016 Pt Olg1398 Mod intensity - 2.0-3.0 02/12/2016 Pt Xpm2071 Hi intensity - 3.0-4.0 02/12/2016 Free T4 Wdi382 FREE T4 1.24 ng/dL 09/27/2015 %Hba1C Wfz240 % HbA1c 22148-4 6.4 % 09/27/2015 %Hba1C Gla926 Gluc Ave 137 mg/dL 09/27/2015 Tsh Ord6 hTSH II 0.37 uIU/mL 09/27/2015 Pt Ber7263 PT 26.2 seconds 09/27/2015 Pt Syy5799 INR 2.5 09/27/2015 Pt Ain6939 Low Intensity - 1.5-2.0 09/27/2015 Pt Hku9922 Mod intensity - 2.0-3.0 09/27/2015 Pt Hbn7116 Hi intensity - 3.0-4.0 09/27/2015 Pt Rco2647 PT 27.6 seconds 2015 Pt Cjn5039 INR 2.7 2015 Pt Eah4326 Low Intensity - 1.5-2.0 2015 Pt Cok2021 Mod intensity - 2.0-3.0 2015 Pt Uuu8095 Hi intensity - 3.0-4.0 2015 %Hba1C Rwb564 % HbA1c 61652-1 6.1 % 06/11/2015 %Hba1C Aar616 Gluc Ave 128 mg/dL 06/11/2015 Cbc With [...] Ord2 RDW 15.8 % 06/10/2015 Comp Metabolic Qku137 NA 139 mEq/L 06/10/2015 Comp Metabolic Ymy731 K 4.1 mEq/L 06/10/2015 Comp Metabolic Qfu086 CL 105 mEq/L 06/10/2015 Comp Metabolic Jon623 CO2 27.0 mEq/L 06/10/2015 Comp Metabolic Hon634 AN ION GAP 11 06/10/2015 Comp Metabolic Vav715 GL UCOSE 127 mg/dL 06/10/2015 Comp Metabolic Naf650 Cr eat 1.0 mg/dL 06/10/2015 Comp Metabolic Pnj025 eG FR 59 ml/min/1.73m2 06/10 Comp Metabolic Cam205 BUN 21 mg/dL 06/10/2015 Comp Metabolic Fdn900 B/ C Ratio 21.2 Ratio 06/10/2015 Comp Metabolic Nni304 CA LCIUM 9.2 mg/dL 06/10/2015 Comp Metabolic Iab445 AL K PHOS 87 U/L 06/10/2015 Comp Metabolic Xif688 T(SGOT) 20 U/L 06/10/2015 Comp Metabolic Gcx959 AL T(SGPT) 17 U/L 06/10/2015 Comp Metabolic Pgq799 BI LI T 0.4 mg/dL 06/10/2015 Comp Metabolic Pmx692 AL BUMIN 4.1 g/dL 06/10/2015 Comp Metabolic Qmh582 TP RO 7.2 g/dL 06/10/2015 Comp Metabolic Wfp980 GL OB 3.1 g/dL 06/10/2015 Comp Metabolic Ent425 A/ G Ratio 1.3 Ratio 06/10/2015 Comp Metabolic Rpj134 Os mo 282 mOsmo 06/10/2015 Tsh Ord6 hTSH II 0.86 uIU/mL 06/10/2015 Lipid Ord30 CHOL 161 mg/dL 06/10/2015 Lipid Ord30 HDL 49.0 mg/dl 06/10/2015 Lipid Ord30 TRIG 208 mg/dL 06/10/2015 Lipid Ord30 LDL 70 mg/dL 06/10/2015 Lipid Ord30 C/HDL 3.3 Ratio 06/10/2015 Pt Kaz3973 PT 25.0 seconds 04/09/2015 Pt Vei4924 INR 2.4 04/09/2015 Pt Zgq8197 Low Intensity - 1.5-2.0 04/09/2015 Pt Tjm9639 Mod intensity - 2.0-3.0 04/09/2015 Pt Yjl1027 Hi intensity - 3.0-4.0 04/09/2015 Free T4 Wdy181 FREE T4 1.05 ng/dL 01/22/2015 Pt Ujc8505 PT 27.2 seconds 01/22/2015 Pt Vrq9709 INR 2.6 01/22/2015 Pt Kgx4876 Low Intensity - 1.5-2.0 01/22/2015 Pt Yqj1017 Mod intensity - 2.0-3.0 01/22/2015 Pt Shj4168 Hi intensity - 3.0-4.0 01/22/2015 Cbc With [...] Differential Ord2 RDW 15.2 % 01/22/2015 B12 Umf065 B12 402.00 pg/ml 01/22/2015 Tsh Ord6 hTSH II 0.65 uIU/mL 01/22/2015 Lipid Ord30 CHOL 166 mg/dL 01/22/2015 Lipid Ord30 HDL 48.0 mg/dl 01/22/2015 Lipid Ord30 TRIG 264 mg/dL 01/22/2015 Lipid Ord30 LDL 65 mg/dL 01/22/2015 Lipid Ord30 C/HDL 3.5 Ratio 01/22/2015 Comp Metabolic Hir618 NA 138 mEq/L 01/22/2015 Comp Metabolic Scn258 K 4.1 mEq/L 01/22/2015 Comp Metabolic Llz406 CL 104 mEq/L 01/22/2015 Comp Metabolic Rob461 CO2 29.0 mEq/L 01/22/2015 Comp Metabolic Vjx879 AN ION GAP 9 01/22/2015 Comp Metabolic Xrf787 GL UCOSE 106 mg/dL 01/22/2015 Comp Metabolic Uzi992 Cr eat 0.9 mg/dL 01/22/2015 Comp Metabolic Hmi911 eG FR 63 ml/min/1.73m2 01/22 Comp Metabolic Mrz612 BUN 21 mg/dL 01/22/2015 Comp Metabolic Bai605 B/ C Ratio 22.3 Ratio 01/22/2015 Comp Metabolic Nug401 CA LCIUM 9.4 mg/dL 01/22/2015 Comp Metabolic Rzw328 AL K PHOS 83 U/L 01/22/2015 Comp Metabolic Ytx740 T(SGOT) 23 U/L 01/22/2015 Comp Metabolic Eeo711 AL T(SGPT) 18 U/L 01/22/2015 Comp Metabolic Ram738 BI LI T 0.8 mg/dL 01/22/2015 Comp Metabolic Yjg126 AL BUMIN 4.2 g/dL 01/22/2015 Comp Metabolic Bfu991 TP RO 7.3 g/dL 01/22/2015 Comp Metabolic Gag665 GL OB 3.1 g/dL 01/22/2015 Comp Metabolic Gox895 A/ G Ratio 1.4 Ratio 01/22/2015 Comp Metabolic Elu553 Os mo 279 mOsmo 01/22/2015 Review of [...] Musculoskeletal No muscle weakness 09/30/2016 Psychiatric anxiety 0407/2016 Neurologic No headache 0 09/30/2016 Constitutional No [...] accomodation 09/10/2016 None Full Exam - General 1995 Ears/Nose/Throat lips/teeth/gingiva Overall: benign lips 09/10/2016 None [...] 1: 144/72 Code: 8480-6 BMI: 46.1 Code: 09552-9 Heart Rate 1: 78 bpm Height: 5'1" SpO2: 98% Weight: 244 lbs 09/30/2016 Blood Pressure 1: 130/76 Code: 8480-6 BMI: 45.0 Code: 25385-9 Heart Rate 1: 86 bpm Height: 5'1" SpO2: 98% Weight: 238 lbs 09/10/2016 Blood Pressure 1: 136/68 Code: 8480-6 BMI: 46.3 Code: 87002-9 Heart Rate 1: 83 bpm Height: 5'1" SpO2: 98% Weight: 245 lbs 08/20/2016 Blood Pressure 1: 142/78 Code: 8480-6 BMI: 45.3 Code: 14308-3 Heart Rate 1: 84 bpm Height: 5'1" SpO2: 99% Weight: 240 lbs 06/08/2016 Blood Pressure 1: 134/76 Code: 8480-6 BMI: 44.2 Code: 62831-0 Heart Rate 1: 86 bpm Height: 5'1" SpO2: 96% Weight: 234 lbs 04/02/2016 Blood Pressure 1: 142/70 Code: 8480-6 BMI: 44.6 Code: 18664-0 Heart Rate 1: 78 bpm Height: 5'1" SpO2: 97% Weight: 236 lbs 01/14/2016 Blood Pressure 1: 146/72 Code: 8480-6 BMI: 44.2 Code: 42924-4 Heart Rate 1: 86 bpm Height: 5'1" SpO2: 96% Weight: 234 lbs 10/02/2015 Blood Pressure 1: 158/76 Code: 8480-6 BMI: 44.2 Code: 38073-4 Heart Rate 1: 67 bpm Height: 5'1" SpO2: 97% Weight: 234 lbs 07/15/2015 Blood Pressure 1: 148/78 Code: 8480-6 Blood Pressure 1: 200/90 Code: 8480-6 BMI: 44.0 Code: 58350-7 Heart Rate 1: 89 bpm Height: 5'1" SpO2: 97% Weight: 233 lbs 06/10/2015 Blood Pressure 1: 140/82 Code: 8480-6 BMI: 44.0 Code: 74567-2 Heart Rate 1: 78 bpm Height: 5'1" [...] wearing crocs and there was a new anguillan on the floor: her foot didn't move [...] Encounters Encounter Performer Loca tion Codes Date ([id number]) [id number] EST. P ATIENT, LEVEL IV Diagnosis: Essential (primary) hypertension[ICD10: I10] Diagnosis: Localized edema[ICD10: R60.0] Diagnosis: Pain in right hip[ICD10: M25.551] [facility] CPT-4: 30450 11/02/2016 [id number] EST. [facility] Diagnosis: Essential (primary) hypertension[ICD10: I10] Diagnosis: Localized edema[ICD10: R60.0] [facility] CPT-4: 39960 09/30/2016 [id number] EST. PATIENT, LEVEL IV Diagnosis: Localized edema[ICD10: R60.0] Diagnosis: Pain in joints of left hand[ICD10: M25.542] Diagnosis: Pain in joints of right hand[ICD10: M25.541] [facility] CPT-4: 37798 09/10/2016 [id number] EST. PATIENT, LEVEL IV Diagnosis: Localized edema[ICD10: R60.0] Diagnosis: Pain in joints of left hand[ICD10: M25.542] Diagnosis: Pain in joints of right hand[ICD10: M25.541] Diagnosis: Other fatigue[ICD10: R53.83] Nata Almanza MD, [facility] CPT-4: 17138 08/20/2016 02578 EST. PATIENT, LEVEL IV Diagnosis: Essential (primary) hypertension[ICD10: I10] Diagnosis: Other long-term (current) drug therapy[ICD10: Z79.899] Diagnosis: Tinnitus, bilateral[ICD10: H93.13] Nata Almanza MD, [facility] CPT-4: 59684 06/08/2016 43260 EST. PATIENT, LEVEL IV Diagnosis: Other allergic rhinitis[ICD10: J30.89] Diagnosis: Acute laryngopharyngitis[ICD10: J06.0] Nata Almanza MD, [facility] CPT-4: 23485 04/02/2016 28708 EST. PATIENT, LEVEL IV Diagnosis: Left upper quadrant pain[ICD10: R10.12] Nata Almanza MD, [facility] CPT-4: 65449 01/14/2016 58134 EST. PATIENT, LEVEL IV Diagnosis: Pain in left shoulder[ICD10: M25.512] Diagnosis: Body mass index (BMI) 40.0-44.9, adult[ICD10: Z68.41] Nata Almanza MD, [facility] CPT-4: 78762 10/02/2015 29215 EST. 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: Other long-term (current) drug therapy[ICD10: Z79.899] Edna Almanza MD, [facility] CPT-4: 69092 06/10/2015 ([id number]) OFFICE VISI T, NEW - LEVEL 4 Diagnosis: ESSENTIAL HYPERTENSION[ICD9: 401.9] Diagnosis: HYPOTHYROIDISM[ICD9: 244.9] Diagnosis: ENCNTR LONG-RX USE NEC[ICD9: V58.69] Diagnosis: HYPERLIPIDEMIA[ICD9: 272.4] Diagnosis: Vitamin B12 deficiency[ICD9: 266.2] Diagnosis: Status post gastric surgery[ICD9: V45.89] Diagnosis: Snoring[ICD9: 786.09] Sarai Almanza MD, [facility] CPT-4: 40056 01/22/2015 Plan of Care Planned Activity Notes [...] dr. Chaney. 11/02/2016 Appointment: Sarai Almanza WPtel: [id number] (15 min) Moderate 11/02/2016 Patient Education: Patient [...] edema. 09/30/2016 Appointment: Sarai Almanza WPtel: [phone] [id number] (15 min) Moderate 09/30/2016 Patient Education: Patient [...] peripheral edema. 09/10/2016 Appointment: Nata Hsu WPtel: [address] [place], [place] [id number] (30 min) Complex 09/10/2016 [...] peripheral edema. 08/20/2016 Appointment: Nata Hsu WPtel: [address] [place], [place] [id number] (30 min) Complex 08/20/2016 Patient Education: Patient Medication Summary Completed 08/20/2016 Referral: Otf Lee [facility] Referral Initiated 07/02/2016 Visit Plan: Chronic Anticoagulant [...] 06/08/2016 Care Plan: Referral Order SNOMED-CT : [id number] Pending 06/08/2016 Visit Plan: URI - Pt [...] spray. 04/02/2016 Appointment: Nata Hsu WPtel: [phone] [id number] [place] (30 min) Complex 04/02/2016 Patient Education: [...] acute pain 01/14/2016 [phone] [place] (30 min) Complex 01/14/2016 Patient Education: Patient Medication Summary Completed 01/14/2016 Patient Education: Obesity Completed 01/14/2016 Care Plan: BMI Above normal followup DAVID F-MGMT EDUC & TRAIN 1 PT Pending 10/24/2015 Care Plan: X-RAY EXAM OF SHOULDER LOINC : 53220-8 Pending 10/24/2015 Visit Plan: Left shoulder pain [...] weight check. 10/02/2015 Appointment: Ed[facility] Douglas [facility]el[phone] (15 min) Moderate 10/02/2015 [...] Rotator cuff exerci ses Completed 06/10/2015 Appointment: Cami Sarai WPtel: [address] [place] [address] (15 min) Moderate 04/22/2015 Visit Plan: Hypertension - well controll ed - continue with current medications, continue with no added salt diet. Pt has been encouraged to exercise daily.The pt has been advised to call the office if there are any acute concerns about change in blood pressure readings at home.Abdominal hernia - pt to have surgical fixation - planning occurring at [facility].Snoring - Sleep apnea symptoms with difficulty loosing [...] to medications. 01/22/2015 Appointment: Sarai Almanza WPtel: [address] [place], [place] [phone] [place] ([place]) New Patient 01/22/2015 Patient Education: Patient Medication Summary Completed 01/22/2015 Patient Education: Hypertension Completed 01/22/2015 Referral: Otf Lee [address] Referral Initiated Instructions Comment . Chronic [...] have surgical fixation - planning occurring at [facility]. Snoring - Sleep apnea symptoms [...]
--- OUTSIDE RECORDS SUMMARY | 2020-01-16 23:05 | XMS REPORT | CCD ---
Author Author Kat Almanza Organization Sarai Almanza MD, [facility] Address [address] [place] [address] Phone Care Team Providers Care Membership Assistant Name Role Phone PP Unavailable CCM Unavailable Summary Purpose Interface Exchange Insurance Providers Payer name Policy type / Coverage type Covered constitution party ID Effective Begin Date Effective End Date [facility] [id number] 2015 Unknown [employer] [id number] [id number] 2015 Unknown Family history Father Diagnosis Age At Onset Hyperlipidemia Unknown Heart Attack Unknown Mother Diagnosis Age At Onset Arthritis Unknown Social History Social History Element Codes Description Effective Dates Marital status Unknown M arried Nathan 09/30/2016 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 Number of children Unknown 3 01/22/[address]: 230199917 Never smoker 01/22/[address]: 881423237 Never drinks alcohol 01/22/2015 Allergies, Adverse Reactions, [...] 780.79 ICD-10: R53.83 Active 08/20/2016 Unknown Other correction (cur rent) drug therapy ICD-9: V58.69 ICD-10: [...] ICD-9: 780.79 ICD-10: R53.83 08/20/2016 Active 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 ICD-9: V58.69 ICD-10: [...] Date Stop Date Sta tus Fill Instructions Synthroid 137 mcg ta blet RxNorm: 595103 TAKE 1 TABLET BY MOUT H ONCE DAILY 11/24/2016 05/22/2017 Ac tive Generic For:SYNTHROID 137MCG TAB 2016 9:04:37 AM Coumadin 4 mg tablet RxNorm: 521031 TAKE 1 TABLET BY MOUTH THREE TIMES PER W KOI (WEDNESDAY, WEDNESDAY AND WEDNESDAY) 11/24/2016 01/22/2017 Active Generic For:COUMADIN 4MG 11/24/2016 9:04:41 AM hydrocodone 5 mg-humberto taminophen 325 mg tablet RxNorm: 023011 1-2 Tablet(s) PO Q6 P RN 11/17/2016 No Stop Date Active Carafate 1 gram tablet RxNorm: 028187 TAKE ONE TABLET BY MOUTH TWICE DAILY 10/27/2016 05/24/2017 Ac tive Generic For:CARAFATE 1GM 10/26/2016 8:3 9:42 AM allopurinol 300 mg t ablet RxNorm: 633394 Tablet(s) TAKE 1 TABL ET BY MOUTH ONCE DAILY. 10/26/2016 04/23/2017 Ac tive Lipitor 40 mg tablet RxNorm: 992958 1 Tablet(s) PO daily 09/25/2016 09/19/2017 Active Zetia 10 mg tablet RxNorm: 332806 1 Tablet(s) PO daily 09/25/2016 01/22/2017 Active gave 1 month of samples Coumadin 4 mg tablet RxNorm: 343072 TAKE 1 TABLET BY MOUTH THREE TIMES PER W KOI (WEDNESDAY, WEDNESDAY AND WEDNESDAY) 09/25/2016 11/23/2016 Inactive Generic For:COUMADIN 4MG 09/25/2016 8:55:58 AM clonazepam 0.5 mg ta blet RxNorm: 166157 1 Tablet(s) PO BID 09/21/2016 02/17/2017 Active Lasix 20 mg tablet RxNorm: 333219 1 Tablet(s) PO daily 09/15/2016 01/12/2017 Active potassium chloride 2 0 mEq/15 mL oral liquid RxNorm: 837371 Milliliter(s) 30 Milliliter(s) (40mEq) PO daily 09/15/2016 01/12/2017 Active Lasix 20 mg tablet RxNorm: 461796 2 Tablet(s) PO daily 09/10/2016 09/12/2016 Inactive Lasix 20 mg tablet RxNorm: 864251 1 Tablet(s) PO daily 08/28/2016 08/30/2016 Inactive Lasix 20 mg tablet RxNorm: 758365 1 Tablet(s) PO daily 08/20/2016 08/22/2016 Inactive Detrol LA 4 mg capsu le,extended release RxNorm: 867974 TAKE 1 CAPSULE BY JAVON TH ONCE DAILY 07/27/2016 02/21/2017 Active Generic For:DETROL LA 4MG CA P 07/27/2016 9:08:27 AM omeprazole 20 mg cap chicho,delayed release RxNorm: 114731 Capsule(s) PO TAKE 1 CAPSULE BY MOUTH ONCE DAILY 07/27/2016 01/22/2017 Active Coumadin 4 mg tablet RxNorm: 402426 1 Tablet(s) PO 3 x week wed and sun 07/27/2016 09/24/2016 In active venlafaxine ER 75 mg capsule,extended release 24 hr RxNorm: 294010 1 Capsule(s) PO daily 06/29/2016 06/23/2017 Active sodium bicarbonate 6 50 mg tablet RxNorm: 205502 TAKE 2 TABLETS BY JAVON TH TWICE DAILY 06/29/2016 12/25/2016 Ac tive 06/27/2016 9:05:39 AM Coumadin 4 mg tablet RxNorm: 315160 1 Tablet(s) PO 3 x week e th and sun 06/09/2016 06/08/2016 In active Coumadin 4 mg tablet RxNorm: 990829 1 Tablet(s) PO 3 x week e throbbi and sun 06/09/2016 07/26/2016 In active Zetia 10 mg tablet RxNorm: 688014 1 Tablet(s) PO daily 06/09/2016 06/08/2016 Inactive gave 1 month of samples Zetia 10 mg tablet RxNorm: 522506 1 Tablet(s) PO daily 06/09/2016 09/24/2016 Inactive gave 1 month of samples spironolactone 25 mg tablet RxNorm: 916035 1 Tablet(s) PO daily 06/08/2016 06/02/2017 Active Effexor 75 mg tablet RxNorm: 722009 1 Tablet(s) PO daily 06/08/2016 06/28/2016 Inactive Synthroid 137 mcg ta blet RxNorm: 181415 1 Tablet(s) PO daily 05/07/2016 11/02/2016 Inactive allopurinol 300 mg t ablet RxNorm: 222841 Tablet(s) TAKE 1 TABL ET BY MOUTH ONCE DAILY. 04/28/2016 10/24/2016 Inactive clonazepam 0.5 mg ta blet RxNorm: 835267 1 Tablet(s) PO BID 04/20/2016 09/15/2016 Inactive Flonase Allergy Reli ef 50 mcg/actuation nasal spray,suspension RxNorm: 9900171 1 [place] NASAL BID 04/02/2016 No Stop Date Active Zithromax Z-Thomas 250 mg tablet RxNorm: 893671 Tablet(s) PO 04/02/2016 08/27/2016 Inactive cetirizine 10 mg tablet RxNorm: 3251922 1 Tablet(s) PO daily 04/02/2016 05/01/2016 Inactive Carafate 1 gram tablet RxNorm: 384387 Tablet(s) TAKE 1 TABLET TWICE A DAY FOR 30 DAYS 03/30/2016 10/25/2016 Inactive Generic For:CARAFATE 1GM 02/08/2015 12:3 6:39 PM Plavix 75 mg tablet RxNorm: 678449 1 Tablet(s) PO daily 03/11/2016 09/06/2016 Inactive sodium bicarbonate 6 50 mg tablet RxNorm: 020284 Tablet(s) 2 Tablet(s) PO BID 02/28/2016 06/26/2016 In active omeprazole 20 mg cap chicho,delayed release RxNorm: 934455 Capsule(s) PO TAKE 1 CAPSULE BY MOUTH ONCE DAILY 01/31/2016 07/26/2016 Inactive Fish Oil 1,000 mg ca psule RxNorm: 1 Capsule(s) PO BID 01/14/2016 No Stop Date Active Synthroid 137 mcg ta blet RxNorm: 092712 1 Tablet(s) PO daily 01/14/2016 05/06/2016 Inactive Detrol LA 4 mg capsu le,extended release RxNorm: 788219 TAKE 1 CAPSULE BY JAVON TH ONCE DAILY 12/30/2015 07/26/2016 Inactive Generic For:DETROL LA 4MG C AP 12/30/2015 9:11:01 AM potassium chloride 2 0 mEq/15 mL oral liquid RxNorm: 416819 Milliliter(s) 30 Milliliter(s) (40mEq) PO daily 12/02/2015 03/30/2016 Inactive sodium bicarbonate 6 50 mg tablet RxNorm: 047031 Tablet(s) 2 Tablet(s) PO BID 10/31/2015 02/27/2016 In active Lipitor 40 mg tablet RxNorm: 841635 1 Tablet(s) PO daily 10/09/2015 09/24/2016 Inactive sodium bicarbonate 6 50 mg tablet RxNorm: 438852 2 Tablet(s) PO BID 10/01/2015 10/30/2015 Inactive allopurinol 300 mg t ablet RxNorm: 503088 TAKE 1 TABLET BY MOUT H ONCE DAILY. 10/01/2015 04/27/2016 In active Generic For:ZYLOPRIM 300 MG TABLET 09/19 9:21:15 AM clonazepam 0.5 mg ta blet RxNorm: 988061 1 Tablet(s) PO BID 09/30/2015 04/19/2016 Inactive Coumadin 5 mg tablet RxNorm: 129448 1 Tablet(s) PO daily 09/27/2015 No Stop Date Active Generic For:COUMADIN 5MG TAB N O T I C E PRESCRIPTION PREVIOUSLY AUTHORIZED BY DOCTOR:BOBBY ZULETA Synthroid 125 mcg ta blet RxNorm: 816118 1 Tablet(s) PO daily 09/27/2015 09/26/2015 Inactive Synthroid 125 mcg ta blet RxNorm: 940917 1 Tablet(s) PO daily 09/27/2015 01/13/2016 Inactive Carafate 1 gram tablet RxNorm: 010042 Tablet(s) TAKE 1 TABLET TWICE A DAY FOR 30 DAYS 09/02/2015 03/29/2016 Inactive Generic For:CARAFATE 1GM 02/08/2015 12:3 6:39 PM sodium bicarbonate 6 50 mg tablet RxNorm: 480377 2 Tablet(s) PO BID 09/02/2015 09/30/2015 Inactive Prilosec 20 mg capsu le,delayed release RxNorm: 248936 TAKE 1 CAPSULE BY JAVON TH ONCE DAILY 08/02/2015 01/28/2016 Inactive Generic For:PRILOSEC 20MG 08/02/2015 10:03:09 AM N O T I C E PRESCRIPTION PREVIOUSLY AUTHORIZED BY DOCTOR:BOBBY ZULETA Zyrtec 10 mg capsule RxNorm: 3156783 1 Capsule(s) PO daily 07/15/2015 08/13/2015 Inactive Keflex 500 mg capsule RxNorm: 603650 1 Capsule(s) PO TID 07/15/2015 07/21/2015 Inactive cetirizine 10 mg cap chicho RxNorm: 8632477 1 Capsule(s) PO daily 07/15/2015 08/13/2015 Inactive hydrocodone 5 mg-humberto taminophen 325 mg tablet RxNorm: 117625 1-2 Tablet(s) PO Q6 P RN 06/10/2015 11/16/2016 In active sodium bicarbonate 6 50 mg tablet RxNorm: 773258 2 Tablet(s) PO BID 06/03/2015 08/31/2015 Inactive Detrol LA 4 mg capsu le,extended release RxNorm: 109441 TAKE 1 CAPSULE BY JAVON TH ONCE DAILY 06/03/2015 12/29/2015 Inactive Generic For:DETROL LA 4MG C AP N O T I C E PRESCRIPTION PREVIOUSLY AUTHORIZED BY DOCTOR:BOBBY ZULETA atenolol 50 mg tablet RxNorm: 482457 1 Tablet(s) PO daily TAKE 1 TABLET BY MO AKH DAILY 05/07/2015 04/30/2016 Inactive Generic For:TENORMIN 50MG 05/04/2015 9:07:22 AM spironolactone 25 mg tablet RxNorm: 596691 1 Tablet(s) PO daily 05/06/2015 06/07/2016 Inactive venlafaxine ER 75 mg capsule,extended release 24 hr RxNorm: 894014 1 Capsule(s) PO daily 05/04/2015 06/28/2016 Inactive atenolol 50 mg tablet RxNorm: 004180 TAKE 1 TABLET BY MOUTH DAILY 05/04/2015 05/06/2015 Inactive Generic For:TENORMIN 50MG 05/04/2015 9: 07:22 AM Synthroid 150 mcg ta blet RxNorm: 588570 TAKE 1 TABLET BY MOUT H ONCE DAILY. 04/05/2015 09/26/2015 In active Generic For:SYNTHROID 150MCG TAB 2014 4:45:40 PM N O T I C E PRESCRIPTION PREVIOUSLY AUTHORIZED BY DOCTOR:BOBBY ZULETA Effexor 75 mg tablet RxNorm: 311437 1 Tablet(s) PO daily 04/05/2015 07/03/2015 Inactive Coumadin 5 mg tablet RxNorm: 546789 TAKE 1 AND 1/2 TABLETS BY MOUTH ONCE MYRANDA LY 04/04/2015 09/26/2015 In active Generic For:COUMADIN 5MG TAB N O T I C E PRESCRIPTION PREVIOUSLY AUTHORIZED BY DOCTOR:BOBBY ZULETA clonazepam 0.5 mg ta blet RxNorm: 055211 1 Tablet(s) PO BID 03/13/2015 11/05/2015 Inactive sodium bicarbonate 6 50 mg tablet RxNorm: 821123 2 Tablet(s) PO BID 03/08/2015 06/02/2015 Inactive allopurinol 300 mg t ablet RxNorm: 350868 TAKE 1 TABLET BY MOUT H ONCE DAILY. 03/05/2015 09/30/2015 In active N O T I C E PRESCRIPTION PREVIOUSLY A UTHORIZED BY DOCTOR:BOBBY ZULETA Plavix 75 mg tablet RxNorm: 870218 1 Tablet(s) PO daily 02/12/2015 09/09/2015 Inactive clonazepam 0.5 mg ta blet RxNorm: 867304 1 Tablet(s) PO BID 02/11/2015 03/11/2015 Inactive Carafate 1 gram tablet RxNorm: 251912 TAKE 1 TABLET TWICE A DAY FOR 30 DAYS 02/08/2015 02/07/2015 In active Generic For:CARAFATE 1GM 02/08/2015 12:3 6:39 PM Carafate 1 gram tablet RxNorm: 520651 Tablet(s) TAKE 1 TABLET TWICE A DAY FOR 30 DAYS 02/08/2015 09/01/2015 Inactive Generic For:CARAFATE 1GM 02/08/2015 12:3 6:39 PM potassium chloride 2 0 mEq/15 mL oral liquid RxNorm: 914311 30 Milliliter(s) (40m Eq) PO daily 02/05/2015 12/01/2015 Inactive atenolol 50 mg tablet RxNorm: 770034 1 Tablet(s) PO daily 02/04/2015 05/03/2015 Inactive [SAVINGS FOR NON-COVERED DRUGS -- BIN:00 3585, PCN: [id number], Group: XXXXX, ID# [id number], Questions: . THIS IS NOT INSURANCE.] potassium chloride 2 0 mEq/15 mL oral liquid RxNorm: 488176 30 Milliliter(s) (40m Eq) PO daily 01/08/2015 02/04/2015 Inactive potassium chloride 2 0 mEq/15 mL oral liquid RxNorm: 803619 30 Milliliter(s) (40m Eq) PO daily 12/07/2014 01/07/2015 Inactive atenolol 50 mg tablet RxNorm: 980418 1 Tablet(s) PO daily 11/09/2014 11/08/2014 Inactive atenolol 50 mg tablet RxNorm: 532602 1 Tablet(s) PO daily 11/09/2014 02/03/2015 Inactive [SAVINGS FOR NON-COVERED DRUGS -- BIN:00 3585, PCN: [id number], Group: XXXXX, ID# [id number], Questions: . THIS IS NOT INSURANCE.] cranberry 1,000 mg c apsule RxNorm: 056129 1 Capsule(s) PO daily No Start Date Active Voltaren 1 % topical gel RxNorm: 781859 TOP No St art Date Active atenolol 50 mg tablet RxNorm: 886229 1 Tablet(s) PO daily No Start Date Active verapamil ER (HS) 24 0 mg tablet,extended release 24 hr RxNorm: 171747 1 Tablet(s) PO daily No Start Date Active aspirin 81 mg tablet RxNorm: 343796 1 Tablet(s) PO daily No Start Date Active Zofran 4 mg tablet RxNorm: 678062 1 Tablet(s) PO PRN No Start Date Active B12 1000 mcg RxNorm: 1 Tablet(s) PO daily No Start Date Active Lipitor 40 mg tablet RxNorm: 628348 1 Tablet(s) PO daily No Start Date 10/08/2015 Inactive magnesium oxide 400 mg capsule RxNorm: 729020 2 Capsule(s) PO BID No Start Date Active Synthroid 150 mcg ta blet RxNorm: 023305 1 Tablet(s) PO daily No Start Date 04/04/2015 Inactive Coumadin 5 mg tablet RxNorm: 560087 1 Tablet(s) PO daily No Start Date 04/03/2015 Inactive allopurinol 300 mg t ablet RxNorm: 849013 1 Tablet(s) PO daily No Start Date 03/04/2015 Inactive Prilosec 20 mg capsu le,delayed release RxNorm: 664873 1 Capsule(s) PO PRN No Start Date 08/01/2015 Inactive potassium chloride 2 0 mEq/15 mL oral liquid RxNorm: 430090 30 Milliliter(s) (40m Eq) PO daily No Start Date 12/06/2014 Inactive Effexor 75 mg tablet RxNorm: 183246 1 Tablet(s) PO daily No Start Date 04/04/2015 Inactive Carafate 1 gram tablet RxNorm: 722846 1 Tablet(s) PO BID No Start Date 02/07/2015 Inactive clonazepam 0.5 mg ta blet RxNorm: 596940 1 Tablet(s) PO BID No Start Date 02/10/2015 Inactive Plavix 75 mg tablet RxNorm: 811967 1 Tablet(s) PO daily No Start Date 02/11/2015 Inactive sodium bicarbonate 6 50 mg tablet RxNorm: 417388 2 Tablet(s) PO BID No Start Date 09/01/2015 Inactive Fish Oil 1,000 mg ca psule RxNorm: 1 Capsule(s) PO daily No Start Date 01/13/2016 Inactive Detrol LA 4 mg capsu le,extended release RxNorm: 068689 1 Capsule(s) PO daily No Start Date [...] fatigue ICD-10: R53.83 ICD-9: 780.79 08/20/2016 Other correction (current) drug therapy ICD-10: Z79.899 ICD-9: V58.69 [...] Code Item Item Code Result Date %Hba1C Jpa157 % HbA1c 68573-5 6.4 % 10/23/2016 %Hba1C Knz617 Gluc Ave 137 mg/dL 10/23/2016 Comp Metabolic Afs051 NA 138 mEq/L 10/23/2016 Comp Metabolic Wjf960 K 3.4 mEq/L 10/23/2016 Comp Metabolic Xrh725 CL 100 mEq/L 10/23/2016 Comp Metabolic Jbw245 CO2 30.0 mEq/L 10/23/2016 Comp Metabolic Xus610 AN ION GAP 11 10/23/2016 Comp Metabolic Cag148 GL UCOSE 139 mg/dL 10/23/2016 Comp Metabolic Vhm926 Cr eat 0.9 mg/dL 10/23/2016 Comp Metabolic Spa444 eG FR 62 ml/min/1.73m2 10/23 Comp Metabolic Mip792 BUN 22 mg/dL 10/23/2016 Comp Metabolic Xla092 B/ C Ratio 23.4 Ratio 10/23/2016 Comp Metabolic Cgz656 CA LCIUM 8.7 mg/dL 10/23/2016 Comp Metabolic Zdr249 AL K PHOS 66 U/L 10/23/2016 Comp Metabolic Mys579 T(SGOT) 20 U/L 10/23/2016 Comp Metabolic Nmm334 AL T(SGPT) 10 U/L 10/23/2016 Comp Metabolic Kzk536 BI LI T 0.5 mg/dL 10/23/2016 Comp Metabolic Naq513 AL BUMIN 3.5 g/dL 10/23/2016 Comp Metabolic Nks499 TP RO 6.3 g/dL 10/23/2016 Comp Metabolic Lgi964 GL OB 2.8 g/dL 10/23/2016 Comp Metabolic Mnd119 A/ G Ratio 1.3 Ratio 10/23/2016 Comp Metabolic Omj145 Os mo 281 mOsmo 10/23/2016 Pt Ewa1432 PT 26.8 seconds 10/23/2016 Pt Bqy1322 INR 2.7 10/23/2016 Pt Bdy0235 Low Intensity - 1.5-2.0 10/23/2016 Pt Foh3910 Mod intensity - 2.0-3.0 10/23/2016 Pt Jeg4824 Hi intensity - 3.0-4.0 10/23/2016 Pt Xcz5165 PT 28.3 seconds 09/25/2016 Pt Lxc0030 INR 2.8 09/25/2016 Pt Lkm2740 Low Intensity - 1.5-2.0 09/25/2016 Pt Ejw2956 Mod intensity - 2.0-3.0 09/25/2016 Pt Nmd4983 Hi intensity - 3.0-4.0 09/25/2016 Metabolic Ord15 [...] Metabolic Ord15 CALCIUM 8.8 mg/dL 09/25/2016 Pt Kzu6360 PT 30.6 seconds 09/11/2016 Pt Dfv8298 INR 3.2 09/11/2016 Pt Xkk3341 Low Intensity - 1.5-2.0 09/11/2016 Pt Arq7061 Mod intensity - 2.0-3.0 09/11/2016 Pt Fsn6257 Hi intensity - 3.0-4.0 09/11/2016 Comp Metabolic Ypk211 NA 138 mEq/L 09/11/2016 Comp Metabolic Zxi591 K 4.4 mEq/L 09/11/2016 Comp Metabolic Cbe314 CL 103 mEq/L 09/11/2016 Comp Metabolic Vtl154 CO2 31.0 mEq/L 09/11/2016 Comp Metabolic Lfx437 AN ION GAP 8 09/11/2016 Comp Metabolic Jke680 GL UCOSE 146 mg/dL 09/11/2016 Comp Metabolic Dhq455 Cr eat 1.0 mg/dL 09/11/2016 Comp Metabolic Epd731 eG FR 60 ml/min/1.73m2 09/11 Comp Metabolic Mob684 BUN 16 mg/dL 09/11/2016 Comp Metabolic Hiy654 B/ C Ratio 16.5 Ratio 09/11/2016 Comp Metabolic Srk771 CA LCIUM 8.7 mg/dL 09/11/2016 Comp Metabolic Now919 AL K PHOS 52 U/L 09/11/2016 Comp Metabolic Ggy062 T(SGOT) 19 U/L 09/11/2016 Comp Metabolic Pbn932 AL T(SGPT) 11 U/L 09/11/2016 Comp Metabolic Ycm156 BI LI T 0.7 mg/dL 09/11/2016 Comp Metabolic Pfx373 AL BUMIN 3.3 g/dL 09/11/2016 Comp Metabolic Tph361 TP RO 5.8 g/dL 09/11/2016 Comp Metabolic Ohu566 GL OB 2.5 g/dL 09/11/2016 Comp Metabolic Bya785 A/ G Ratio 1.3 Ratio 09/11/2016 Comp Metabolic Hbd110 Os mo 280 mOsmo 09/11/2016 C-Reactive Protein Qnt Crqnt CRP 0.1 mg/dl 08/21/2016 Comp Metabolic Lyh508 NA 139 mEq/L 08/21/2016 Comp Metabolic Gaa067 K 4.1 mEq/L 08/21/2016 Comp Metabolic Cjj178 CL 102 mEq/L 08/21/2016 Comp Metabolic Rvy951 CO2 30.0 mEq/L 08/21/2016 Comp Metabolic Dhy629 AN ION GAP 11 08/21/2016 Comp Metabolic Avm619 GL UCOSE 148 mg/dL 08/21/2016 Comp Metabolic Pea954 Cr eat 1.0 mg/dL 08/21/2016 Comp Metabolic Grq854 eG FR 55 ml/min/1.73m2 08/21 Comp Metabolic Axq831 BUN 21 mg/dL 08/21/2016 Comp Metabolic Qhq962 B/ C Ratio 20.2 Ratio 08/21/2016 Comp Metabolic Hua080 CA LCIUM 9.4 mg/dL 08/21/2016 Comp Metabolic Snw762 AL K PHOS 63 U/L 08/21/2016 Comp Metabolic Xbg008 T(SGOT) 23 U/L 08/21/2016 Comp Metabolic Uvc336 AL T(SGPT) 16 U/L 08/21/2016 Comp Metabolic Svy451 BI LI T 0.6 mg/dL 08/21/2016 Comp Metabolic Cbt723 AL BUMIN 3.9 g/dL 08/21/2016 Comp Metabolic Klq580 TP RO 6.8 g/dL 08/21/2016 Comp Metabolic Pac623 GL OB 2.9 g/dL 08/21/2016 Comp Metabolic Nto246 A/ G Ratio 1.4 Ratio 08/21/2016 Comp Metabolic Ubz680 Os mo 283 mOsmo 08/21/2016 Sed Rate Ord21 ESR 16 mm/hr 08/21/2016 Pt Abt1251 PT 27.2 seconds 08/21/2016 Pt Adt5060 INR 2.7 08/21/2016 Pt Gll4561 Low Intensity - 1.5-2.0 08/21/2016 Pt Dnv7142 Mod intensity - 2.0-3.0 08/21/2016 Pt Vpn7010 Hi intensity - 3.0-4.0 08/21/2016 Magnesium Ord90 Mag 1.9 mg/dL 08/21/2016 Pt Qzf7160 PT 25.9 seconds 06/17/2016 Pt Myp3694 INR 2.5 06/17/2016 Pt Orp1501 Low Intensity - 1.5-2.0 06/17/2016 Pt Qdu9217 Mod intensity - 2.0-3.0 06/17/2016 Pt Gxm4142 Hi intensity - 3.0-4.0 06/17/2016 Tsh Ord6 hTSH II 2.13 uIU/mL 06/08/2016 Free T4 Wfe135 FREE T4 0.79 ng/dL 06/08/2016 Cbc With [...] 80.8 fl 06/08/2016 Cbc With Differential Ord2 [place]% 12.0 % 06/08/2016 Cbc With Differential Ord2 [...] 1.40 K/ul 06/08/2016 Cbc With Differential Ord2 [place] ABS# 0.7 K/ul 06/08/2016 Cbc With Differential Ord2 Eos ABS# 0.3 K/ul 06/08/2016 Cbc With Differential Ord2 Baso ABS# 0.1 K/ul 06/08/2016 %Hba1C Dkd929 % HbA1c 59892-1 6.2 % 06/08/2016 %Hba1C Nyf331 Gluc Ave 131 mg/dL 06/08/2016 Comp Metabolic Qff492 NA 138 mEq/L 06/08/2016 Comp Metabolic Xds974 K 3.9 mEq/L 06/08/2016 Comp Metabolic Fuv473 CL 105 mEq/L 06/08/2016 Comp Metabolic Enk198 CO2 27.0 mEq/L 06/08/2016 Comp Metabolic Fbq523 AN ION GAP 10 06/08/2016 Comp Metabolic Ipe730 GL UCOSE 127 mg/dL 06/08/2016 Comp Metabolic Oni766 Cr eat 1.0 mg/dL 06/08/2016 Comp Metabolic Mgd104 eG FR 59 ml/min/1.73m2 06/08 Comp Metabolic Bcv759 BUN 19 mg/dL 06/08/2016 Comp Metabolic Iue683 B/ C Ratio 19.4 Ratio 06/08/2016 Comp Metabolic Oxi315 CA LCIUM 9.2 mg/dL 06/08/2016 Comp Metabolic Fgc508 AL K PHOS 77 U/L 06/08/2016 Comp Metabolic Brd893 T(SGOT) 19 U/L 06/08/2016 Comp Metabolic Zcq442 AL T(SGPT) 13 U/L 06/08/2016 Comp Metabolic Ohf584 BI LI T 0.5 mg/dL 06/08/2016 Comp Metabolic Qky634 AL BUMIN 3.8 g/dL 06/08/2016 Comp Metabolic Jfw383 TP RO 6.6 g/dL 06/08/2016 Comp Metabolic Znp005 GL OB 2.8 g/dL 06/08/2016 Comp Metabolic Siy046 A/ G Ratio 1.4 Ratio 06/08/2016 Comp Metabolic Xfn265 Os mo 280 mOsmo 06/08/2016 Pt Qqg1858 PT 36.1 seconds 06/08/2016 Pt Iql9578 INR 3.9 06/08/2016 Pt Ehi6902 Low Intensity - 1.5-2.0 06/08/2016 Pt Ymh2144 Mod intensity - 2.0-3.0 06/08/2016 Pt Xmz0334 Hi intensity - 3.0-4.0 06/08/2016 Lipid Ord30 CHOL 149 mg/dL 06/08/2016 Lipid Ord30 HDL 46.0 mg/dl 06/08/2016 Lipid Ord30 TRIG 279 mg/dL 06/08/2016 Lipid Ord30 LDL 47 mg/dL 06/08/2016 Lipid Ord30 C/HDL 3.2 Ratio 06/08/2016 Pt Vzj5132 PT 30.9 seconds 02/12/2016 Pt Ttx4235 INR 3.2 02/12/2016 Pt Gfm9325 Low Intensity - 1.5-2.0 02/12/2016 Pt Wyy1094 Mod intensity - 2.0-3.0 02/12/2016 Pt Zsn9089 Hi intensity - 3.0-4.0 02/12/2016 Free T4 Ctj406 FREE T4 1.24 ng/dL 09/27/2015 %Hba1C Fpq606 % HbA1c 24801-8 6.4 % 09/27/2015 %Hba1C Uwq500 Gluc Ave 137 mg/dL 09/27/2015 Tsh Ord6 hTSH II 0.37 uIU/mL 09/27/2015 Pt Yzu8618 PT 26.2 seconds 09/27/2015 Pt Ran5493 INR 2.5 09/27/2015 Pt Ylx6945 Low Intensity - 1.5-2.0 09/27/2015 Pt Mxo5393 Mod intensity - 2.0-3.0 09/27/2015 Pt Ytr8863 Hi intensity - 3.0-4.0 09/27/2015 Pt Nfc9274 PT 27.6 seconds 2015 Pt Mgf7362 INR 2.7 2015 Pt Jgi0229 Low Intensity - 1.5-2.0 2015 Pt Vnz0301 Mod intensity - 2.0-3.0 2015 Pt Lor3597 Hi intensity - 3.0-4.0 2015 %Hba1C Dxt516 % HbA1c 00706-2 6.1 % 06/11/2015 %Hba1C Sil848 Gluc Ave 128 mg/dL 06/11/2015 Cbc With [...] Ord2 RDW 15.8 % 06/10/2015 Comp Metabolic Cyy379 NA 139 mEq/L 06/10/2015 Comp Metabolic Zdg184 K 4.1 mEq/L 06/10/2015 Comp Metabolic Fba464 CL 105 mEq/L 06/10/2015 Comp Metabolic Mfh762 CO2 27.0 mEq/L 06/10/2015 Comp Metabolic Poi460 AN ION GAP 11 06/10/2015 Comp Metabolic Adr398 GL UCOSE 127 mg/dL 06/10/2015 Comp Metabolic Kkr040 Cr eat 1.0 mg/dL 06/10/2015 Comp Metabolic Wul211 eG FR 59 ml/min/1.73m2 06/10 Comp Metabolic Iwf736 BUN 21 mg/dL 06/10/2015 Comp Metabolic Acb435 B/ C Ratio 21.2 Ratio 06/10/2015 Comp Metabolic Utj020 CA LCIUM 9.2 mg/dL 06/10/2015 Comp Metabolic Ila229 AL K PHOS 87 U/L 06/10/2015 Comp Metabolic Ivj542 T(SGOT) 20 U/L 06/10/2015 Comp Metabolic Jko385 AL T(SGPT) 17 U/L 06/10/2015 Comp Metabolic Eft308 BI LI T 0.4 mg/dL 06/10/2015 Comp Metabolic Rce173 AL BUMIN 4.1 g/dL 06/10/2015 Comp Metabolic Iye383 TP RO 7.2 g/dL 06/10/2015 Comp Metabolic Iot750 GL OB 3.1 g/dL 06/10/2015 Comp Metabolic Zmg223 A/ G Ratio 1.3 Ratio 06/10/2015 Comp Metabolic Fgz718 Os mo 282 mOsmo 06/10/2015 Tsh Ord6 hTSH II 0.86 uIU/mL 06/10/2015 Lipid Ord30 CHOL 161 mg/dL 06/10/2015 Lipid Ord30 HDL 49.0 mg/dl 06/10/2015 Lipid Ord30 TRIG 208 mg/dL 06/10/2015 Lipid Ord30 LDL 70 mg/dL 06/10/2015 Lipid Ord30 C/HDL 3.3 Ratio 06/10/2015 Pt Xjr3490 PT 25.0 seconds 04/09/2015 Pt Hjn8864 INR 2.4 04/09/2015 Pt Hfw8130 Low Intensity - 1.5-2.0 04/09/2015 Pt Ngy9790 Mod intensity - 2.0-3.0 04/09/2015 Pt Lcc3658 Hi intensity - 3.0-4.0 04/09/2015 Free T4 Uwj238 FREE T4 1.05 ng/dL 01/22/2015 Pt Piy4034 PT 27.2 seconds 01/22/2015 Pt Jzc4538 INR 2.6 01/22/2015 Pt Bke0758 Low Intensity - 1.5-2.0 01/22/2015 Pt Vbh7315 Mod intensity - 2.0-3.0 01/22/2015 Pt Swt9891 Hi intensity - 3.0-4.0 01/22/2015 Cbc With [...] Differential Ord2 RDW 15.2 % 01/22/2015 B12 Skv601 B12 402.00 pg/ml 01/22/2015 Tsh Ord6 hTSH II 0.65 uIU/mL 01/22/2015 Lipid Ord30 CHOL 166 mg/dL 01/22/2015 Lipid Ord30 HDL 48.0 mg/dl 01/22/2015 Lipid Ord30 TRIG 264 mg/dL 01/22/2015 Lipid Ord30 LDL 65 mg/dL 01/22/2015 Lipid Ord30 C/HDL 3.5 Ratio 01/22/2015 Comp Metabolic Qeg404 NA 138 mEq/L 01/22/2015 Comp Metabolic Dkh421 K 4.1 mEq/L 01/22/2015 Comp Metabolic Ycx858 CL 104 mEq/L 01/22/2015 Comp Metabolic Yxn670 CO2 29.0 mEq/L 01/22/2015 Comp Metabolic Znf040 AN ION GAP 9 01/22/2015 Comp Metabolic Ygx493 GL UCOSE 106 mg/dL 01/22/2015 Comp Metabolic Yrq481 Cr eat 0.9 mg/dL 01/22/2015 Comp Metabolic Fij816 eG FR 63 ml/min/1.73m2 01/22 Comp Metabolic Cmm695 BUN 21 mg/dL 01/22/2015 Comp Metabolic Zul546 B/ C Ratio 22.3 Ratio 01/22/2015 Comp Metabolic Fkp590 CA LCIUM 9.4 mg/dL 01/22/2015 Comp Metabolic Sjl537 AL K PHOS 83 U/L 01/22/2015 Comp Metabolic Itv614 T(SGOT) 23 U/L 01/22/2015 Comp Metabolic Wly243 AL T(SGPT) 18 U/L 01/22/2015 Comp Metabolic Cpt404 BI LI T 0.8 mg/dL 01/22/2015 Comp Metabolic Lrg606 AL BUMIN 4.2 g/dL 01/22/2015 Comp Metabolic Dkz560 TP RO 7.3 g/dL 01/22/2015 Comp Metabolic Hoo490 GL OB 3.1 g/dL 01/22/2015 Comp Metabolic Zlj731 A/ G Ratio 1.4 Ratio 01/22/2015 Comp Metabolic Hfs783 Os mo 279 mOsmo 01/22/2015 Review of [...] lips 09/10/2016 None Full Exam - General 1995 [...] 1: 144/72 Code: 8480-6 BMI: 46.1 Code: 83699-9 Heart Rate 1: 78 bpm Height: 5'1" SpO2: 98% Weight: 244 lbs 09/30/2016 Blood Pressure 1: 130/76 Code: 8480-6 BMI: 45.0 Code: 12936-0 Heart Rate 1: 86 bpm Height: 5'1" SpO2: 98% Weight: 238 lbs 09/10/2016 Blood Pressure 1: 136/68 Code: 8480-6 BMI: 46.3 Code: 48064-8 Heart Rate 1: 83 bpm Height: 5'1" SpO2: 98% Weight: 245 lbs 08/20/2016 Blood Pressure 1: 142/78 Code: 8480-6 BMI: 45.3 Code: 72744-4 Heart Rate 1: 84 bpm Height: 5'1" SpO2: 99% Weight: 240 lbs 06/08/2016 Blood Pressure 1: 134/76 Code: 8480-6 BMI: 44.2 Code: 20338-0 Heart Rate 1: 86 bpm Height: 5'1" SpO2: 96% Weight: 234 lbs 04/02/2016 Blood Pressure 1: 142/70 Code: 8480-6 BMI: 44.6 Code: 99182-4 Heart Rate 1: 78 bpm Height: 5'1" SpO2: 97% Weight: 236 lbs 01/14/2016 Blood Pressure 1: 146/72 Code: 8480-6 BMI: 44.2 Code: 69154-7 Heart Rate 1: 86 bpm Height: 5'1" SpO2: 96% Weight: 234 lbs 10/02/2015 Blood Pressure 1: 158/76 Code: 8480-6 BMI: 44.2 Code: 60815-0 Heart Rate 1: 67 bpm Height: 5'1" SpO2: 97% Weight: 234 lbs 07/15/2015 Blood Pressure 1: 148/78 Code: 8480-6 Blood Pressure 1: 200/90 Code: 8480-6 BMI: 44.0 Code: 78134-2 Heart Rate 1: 89 bpm Height: 5'1" SpO2: 97% Weight: 233 lbs 06/10/2015 Blood Pressure 1: 140/82 Code: 8480-6 BMI: 44.0 Code: 12188-2 Heart Rate 1: 78 bpm Height: 5'1" [...] Encounters Encounter Performer Loca tion Codes Date ([id number]) [id number] EST. P [facility], LEVEL IV Diagnosis: Essential (primary) hypertension[ICD10: I10] Diagnosis: Localized edema[ICD10: R60.0] Diagnosis: Pain in right hip[ICD10: M25.551] Sarai Almanza MD, [facility] CPT-4: 33301 11/02/2016 ([id number]) [id number] EST. P [facility], LEVEL IV Diagnosis: Essential (primary) hypertension[ICD10: I10] Diagnosis: Localized edema[ICD10: R60.0] Sarai Almanza MD, [facility] CPT-4: 40224 09/30/2016 26052 EST. PATIENT, LEVEL IV Diagnosis: Localized edema[ICD10: R60.0] Diagnosis: Pain in joints of left hand[ICD10: M25.542] Diagnosis: Pain in joints of right hand[ICD10: M25.541] Nata Almanza MD, [facility] CPT-4: 13295 09/10/2016 [id number] EST. PATIENT, LEVEL IV Diagnosis: Localized edema[ICD10: R60.0] Diagnosis: Pain in joints of left hand[ICD10: M25.542] Diagnosis: Pain in joints of right hand[ICD10: M25.541] Diagnosis: Other fatigue[ICD10: R53.83] Nata Almanza MD, [facility] CPT-4: 48704 08/20/2016 82613 EST. PATIENT, LEVEL IV Diagnosis: Essential (primary) hypertension[ICD10: I10] Diagnosis: Other long term acute care registered nurse (current) drug therapy[ICD10: Z79.899] Diagnosis: Tinnitus, bilateral[ICD10: H93.13] Nata Almanza MD, [facility] CPT-4: 21187 06/08/2016 50515 EST. PATIENT, LEVEL IV Diagnosis: Other allergic rhinitis[ICD10: J30.89] Diagnosis: Acute laryngopharyngitis[ICD10: J06.0] Nata Almanza MD, [facility] CPT-4: 07696 04/02/2016 [id number] EST. PATIENT, LEVEL IV Diagnosis: Left upper quadrant pain[ICD10: R10.12] Nata Almanza MD, [facility] CPT-4: 29094 01/14/2016 47923 EST. PATIENT, LEVEL IV Diagnosis: Pain in left shoulder[ICD10: M25.512] Diagnosis: Body mass index (BMI) 40.0-44.9, adult[ICD10: Z68.41] Nata Almanza MD, [facility] CPT-4: 52660 10/02/2015 88817 EST. PATIENT, LEVEL IV Diagnosis: Pain in left leg[ICD10: M79.605] Diagnosis: Other long term acute care registered nurse (current) drug therapy[ICD10: Z79.899] Nata Almanza MD, [facility] CPT-4: 48326 07/15/2015 ([id number]) 86589 EST. 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: Other long term acute care registered nurse (current) drug therapy[ICD10: Z79.899] Edna Almanza MD, [facility] CPT-4: 15174 06/10/2015 ([id number]) OFFICE VISI T, NEW - LEVEL 4 Diagnosis: ESSENTIAL HYPERTENSION[ICD9: 401.9] Diagnosis: HYPOTHYROIDISM[ICD9: 244.9] Diagnosis: ENCNTR LONG-RX USE NEC[ICD9: V58.69] Diagnosis: HYPERLIPIDEMIA[ICD9: 272.4] Diagnosis: Vitamin B12 deficiency[ICD9: 266.2] Diagnosis: Status post gastric surgery[ICD9: V45.89] Diagnosis: Snoring[ICD9: 786.09] [facility] CPT-4: 38185 01/22/2015 Plan of Care Planned Activity Notes [...] dr. Chaney. 11/02/2016 Appointment: Sarai Almanza [facility]Ptel: [facility] (15 min) Moderate 11/02/2016 Patient Education: Patient Medication Summary Completed 11/02/2016 Patient Education: Obesity Completed 11/02/2016 Care Plan[facility] 25992[facility]5 Pending 11/02/2016 Patient Education: Patient Medication Summary Completed [...] peripheral edema. 09/30/2016 Appointment: Sarai Almanza WPtel: [facility] [place] (15 min) Moderate 09/30/2016 Patient Education: Patient [...] peripheral edema. 09/10/2016 Appointment: Nata Hsu WPtel: [address] [place] [address] (30 min) Complex 09/10/2016 Patient Education: Patient [...] peripheral edema. 08/20/2016 Appointment: Nata Hsu WPtel: [address] [place] [address] (30 min) Complex 08/20/2016 Patient Education: Patient Medication Summary Completed 08/20/2016 Referral: Otf Lee [facility] Referral Initiated 07/02/2016 Visit Plan: Chronic Anticoagulant [...] 06/08/2016 Care Plan: Referral Order SNOMED-CT : [id number] Pending 06/08/2016 Visit Plan: URI - Pt [...] allergy spray. 04/02/2016 App[facility]ment: [facility] [phone] [facility] [place] (30 min) Complex 04/02/2016 Patient Education: [...] acute pain 01/14/2016 Appointment: Edna Douglas WPtel: [phone] [place] (30 min) Complex 01/14/2016 Patient Education: Patient Medication Summary Completed 01/14/2016 Patient Education: Obesity Completed 01/14/2016 Care Plan: BMI Above normal followup DAVID F-MGMT EDUC & TRAIN 1 PT Pending 10/24/2015 Care Plan: X-RAY EXAM OF SHOULDER LOINC : 11491-4 Pending 10/24/2015 Visit Plan: Left shoulder pain [...] check. 10/02/2015 Appointment: [facility]el[facility] [phone] [facility] (15 min) Moderate 10/02/2015 Patient Education: Patient [...] ses Completed 06/10/2015 Appointment: Sarai Almanza WPtel: [address] [place] [address] (15 min) Moderate 04/22/2015 Visit Plan: Hypertension - well controll ed - continue with current medications, continue with no added salt diet. Pt has been encouraged to exercise daily.The pt has been advised to call the office if there are any acute concerns about change in blood pressure readings at home.Abdominal hernia - pt to have surgical fixation - planning occurring at [facility].Snoring - Sleep apnea symptoms with difficulty [...] to medications. 01/22/2015 Appointment: Sarai Almanza WPtel: [address] [place], [place] [phone] [place] ([place]) New Patient 01/22/2015 Patient Education: Patient Medication Summary Completed 01/22/2015 Patient Education: Hypertension Completed 01/22/2015 Referral: Otf Lee [address] Referral Initiated Instructions Comment . Chronic [...] have surgical fixation - planning occurring at [facility]. Snoring - Sleep apnea symptoms with [...]
--- OUTSIDE RECORDS SUMMARY | 2020-01-16 23:06 | XMS REPORT | CCD ---
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 Name Role Phone PP Unavailable CCM Unavailable Summary Purpose Interface Exchange Insurance Providers Payer name Policy type / Coverage type Covered constitution party ID Effective Begin Date Effective End Date [facility] [id number] 2015 Unknown [facility] Benefit VocoMD [id number] Unknown Family history Father Diagnosis Age At Onset Hyperlipidemia Unknown Heart Attack Unknown Mother Diagnosis Age At Onset Arthritis Unknown Social History Social History Element Codes Description Effective Dates Marital status Unknown M arried Nathan 09/30/2016 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 Number of children Unknown 3 01/22/[address]: 745035898 Never smoker 01/22/[address]: 093830693 Never drinks alcohol 01/22/2015 Allergies, Adverse Reactions, [...] 780.79 ICD-10: R53.83 Active 08/20/2016 Unknown Other senior care (cur rent) drug therapy ICD-9: V58.69 ICD-10: [...] ICD-9: 780.79 ICD-10: R53.83 08/20/2016 Active 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 10/26/2016 04/23/2017 Ac tive Lipitor 40 mg tablet RxNorm: 450723 1 Tablet(s) PO daily 09/25/2016 09/19/2017 Active Coumadin 4 mg tablet RxNorm: 124938 TAKE 1 TABLET BY MOUTH THREE TIMES PER [place] (WEDNESDAY, WEDNESDAY AND WEDNESDAY) 09/25/2016 11/23/2016 Inactive Generic For:COUMADIN 4MG 09/25/2016 8:55:58 AM Zetia 10 mg tablet RxNorm: 187955 1 Tablet(s) PO daily 09/25/2016 01/22/2017 Active gave 1 month of samples clonazepam 0.5 mg ta blet RxNorm: 983874 1 Tablet(s) PO BID 09/21/2016 02/17/2017 Active Lasix 20 mg tablet RxNorm: 181531 1 Tablet(s) PO daily 09/15/2016 01/12/2017 Active potassium chloride 2 0 mEq/15 mL oral liquid RxNorm: 377176 Milliliter(s) 30 Milliliter(s) (40mEq) PO daily 09/15/2016 01/12/2017 Active Lasix 20 mg tablet RxNorm: 801659 2 Tablet(s) PO daily 09/10/2016 09/12/2016 Inactive Lasix 20 mg tablet RxNorm: 140957 1 Tablet(s) PO daily 08/28/2016 08/30/2016 Inactive Lasix 20 mg tablet RxNorm: 324232 1 Tablet(s) PO daily 08/20/2016 08/22/2016 Inactive Detrol LA 4 mg capsu le,extended release RxNorm: 025873 TAKE 1 CAPSULE BY JAVON ONCE DAILY 07/27/2016 02/21/2017 Active Generic For:DETROL LA 4MG CA P 07/27/2016 9:08:27 AM omeprazole 20 mg cap chicho,delayed release RxNorm: 539614 Capsule(s) PO TAKE 1 CAPSULE BY MOUTH ONCE DAILY 07/27/2016 01/22/2017 Active Coumadin 4 mg tablet RxNorm: 124782 1 Tablet(s) PO 3 x week wed and sun 07/27/2016 09/24/2016 In active venlafaxine ER 75 mg capsule,extended release 24 hr RxNorm: 487017 1 Capsule(s) PO daily 06/29/2016 06/23/2017 Active sodium bicarbonate 6 50 mg tablet RxNorm: 506149 TAKE 2 TABLETS BY JAVON TWICE DAILY 06/29/2016 12/25/2016 Ac tive 06/27/2016 9:05:39 AM Coumadin 4 mg tablet RxNorm: 130673 1 Tablet(s) PO 3 x week wed and sun 06/09/2016 06/08/2016 In active Coumadin 4 mg tablet RxNorm: 100112 1 Tablet(s) PO 3 x week e and sun 06/09/2016 07/26/2016 In active Zetia 10 mg tablet RxNorm: 723659 1 Tablet(s) PO daily 06/09/2016 06/08/2016 Inactive gave 1 month of samples Zetia 10 mg tablet RxNorm: 222358 1 Tablet(s) PO daily 06/09/2016 09/24/2016 Inactive gave 1 month of samples spironolactone 25 mg tablet RxNorm: 099958 1 Tablet(s) PO daily 06/08/2016 06/02/2017 Active Effexor 75 mg tablet RxNorm: 071487 1 Tablet(s) PO daily 06/08/2016 06/28/2016 Inactive Synthroid 137 mcg ta blet RxNorm: 736949 1 Tablet(s) PO daily 05/07/2016 11/02/2016 Inactive allopurinol 300 mg t ablet RxNorm: 154942 Tablet(s) TAKE 1 TABL ET BY MOUTH ONCE DAILY. 04/28/2016 10/24/2016 Inactive clonazepam 0.5 mg ta blet RxNorm: 633649 1 Tablet(s) PO BID 04/20/2016 09/15/2016 Inactive Flonase Allergy Reli ef 50 mcg/actuation nasal spray,suspension RxNorm: 5194544 1 [place] NASAL BID 04/02/2016 No Stop Date Active Zithromax Z-Thomas 250 mg tablet RxNorm: 744247 Tablet(s) PO 04/02/2016 08/27/2016 Inactive cetirizine 10 mg tablet RxNorm: 4922231 1 Tablet(s) PO daily 04/02/2016 05/01/2016 Inactive Carafate 1 gram tablet RxNorm: 133313 Tablet(s) TAKE 1 TABLET TWICE A DAY FOR 30 DAYS 03/30/2016 10/25/2016 Inactive Generic For:CARAFATE 1GM 02/08/2015 12:3 6:39 PM Plavix 75 mg tablet RxNorm: 632234 1 Tablet(s) PO daily 03/11/2016 09/06/2016 Inactive sodium bicarbonate 6 50 mg tablet RxNorm: 423787 Tablet(s) 2 Tablet(s) PO BID 02/28/2016 06/26/2016 In active omeprazole 20 mg cap chicho,delayed release RxNorm: 132649 Capsule(s) PO TAKE 1 CAPSULE BY MOUTH ONCE DAILY 01/31/2016 07/26/2016 Inactive Fish Oil 1,000 mg ca psule RxNorm: 1 Capsule(s) PO BID 01/14/2016 No Stop Date Active Synthroid 137 mcg ta blet RxNorm: 317319 1 Tablet(s) PO daily 01/14/2016 05/06/2016 Inactive Detrol LA 4 mg capsu le,extended release RxNorm: 413580 TAKE 1 CAPSULE BY JAVON TH ONCE DAILY 12/30/2015 07/26/2016 Inactive Generic For:DETROL LA 4MG C AP 12/30/2015 9:11:01 AM potassium chloride 2 0 mEq/15 mL oral liquid RxNorm: 203603 Milliliter(s) 30 Milliliter(s) (40mEq) PO daily 12/02/2015 03/30/2016 Inactive sodium bicarbonate 6 50 mg tablet RxNorm: 416823 Tablet(s) 2 Tablet(s) PO BID 10/31/2015 02/27/2016 In active Lipitor 40 mg tablet RxNorm: 575892 1 Tablet(s) PO daily 10/09/2015 09/24/2016 Inactive sodium bicarbonate 6 50 mg tablet RxNorm: 512472 2 Tablet(s) PO BID 10/01/2015 10/30/2015 Inactive allopurinol 300 mg t ablet RxNorm: 843057 TAKE 1 TABLET BY MOUT H ONCE DAILY. 10/01/2015 04/27/2016 In active Generic For:ZYLOPRIM 300 MG TABLET 09/19 9:21:15 AM clonazepam 0.5 mg ta blet RxNorm: 114684 1 Tablet(s) PO BID 09/30/2015 04/19/2016 Inactive Coumadin 5 mg tablet RxNorm: 119913 1 Tablet(s) PO daily 09/27/2015 No Stop Date Active Generic For:COUMADIN 5MG TAB N O T I C E PRESCRIPTION PREVIOUSLY AUTHORIZED BY DOCTOR:BOBBY ZULETA Synthroid 125 mcg ta blet RxNorm: 644568 1 Tablet(s) PO daily 09/27/2015 09/26/2015 Inactive Synthroid 125 mcg ta blet RxNorm: 952785 1 Tablet(s) PO daily 09/27/2015 01/13/2016 Inactive Carafate 1 gram tablet RxNorm: 901536 Tablet(s) TAKE 1 TABLET TWICE A DAY FOR 30 DAYS 09/02/2015 03/29/2016 Inactive Generic For:CARAFATE 1GM 02/08/2015 12:3 6:39 PM sodium bicarbonate 6 50 mg tablet RxNorm: 513149 2 Tablet(s) PO BID 09/02/2015 09/30/2015 Inactive Prilosec 20 mg capsu le,delayed release RxNorm: 680897 TAKE 1 CAPSULE BY JAVON TH ONCE DAILY 08/02/2015 01/28/2016 Inactive Generic For:PRILOSEC 20MG 08/02/2015 10:03:09 AM N O T I C E PRESCRIPTION PREVIOUSLY AUTHORIZED BY DOCTOR:BOBBY ZULETA Zyrtec 10 mg capsule RxNorm: 7692316 1 Capsule(s) PO daily 07/15/2015 08/13/2015 Inactive Keflex 500 mg capsule RxNorm: 538844 1 Capsule(s) PO TID 07/15/2015 07/21/2015 Inactive cetirizine 10 mg cap chicho RxNorm: 2505612 1 Capsule(s) PO daily 07/15/2015 08/13/2015 Inactive hydrocodone 5 mg-humberto taminophen 325 mg tablet RxNorm: 913967 1-2 Tablet(s) PO Q6 P RN 06/10/2015 11/16/2016 In active sodium bicarbonate 6 50 mg tablet RxNorm: 266795 2 Tablet(s) PO BID 06/03/2015 08/31/2015 Inactive Detrol LA 4 mg capsu le,extended release RxNorm: 792168 TAKE 1 CAPSULE BY JAVON TH ONCE DAILY 06/03/2015 12/29/2015 Inactive Generic For:DETROL LA 4MG C AP N O T I C E PRESCRIPTION PREVIOUSLY AUTHORIZED BY DOCTOR:BOBBY ZULETA atenolol 50 mg tablet RxNorm: 234607 1 Tablet(s) PO daily TAKE 1 TABLET BY [facility] DAILY 05/07/2015 04/30/2016 Inactive Generic For:TENORMIN 50MG 05/04/2015 9:07:22 AM spironolactone 25 mg tablet RxNorm: 189876 1 Tablet(s) PO daily 05/06/2015 06/07/2016 Inactive venlafaxine ER 75 mg capsule,extended release 24 hr RxNorm: 740141 1 Capsule(s) PO daily 05/04/2015 06/28/2016 Inactive atenolol 50 mg tablet RxNorm: 616793 TAKE 1 TABLET BY MOUTH DAILY 05/04/2015 05/06/2015 Inactive Generic For:TENORMIN 50MG 05/04/2015 9: 07:22 AM Synthroid 150 mcg ta blet RxNorm: 510564 TAKE 1 TABLET BY MOUT H ONCE DAILY. 04/05/2015 09/26/2015 In active Generic For:SYNTHROID 150MCG TAB 2014 4:45:40 PM N O T I C E PRESCRIPTION PREVIOUSLY AUTHORIZED BY DOCTOR:BOBBY ZULETA Effexor 75 mg tablet RxNorm: 941652 1 Tablet(s) PO daily 04/05/2015 07/03/2015 Inactive Coumadin 5 mg tablet RxNorm: 132353 TAKE 1 AND 1/2 TABLETS BY MOUTH ONCE MYRANDA LY 04/04/2015 09/26/2015 In active Generic For:COUMADIN 5MG TAB N O T I C E PRESCRIPTION PREVIOUSLY AUTHORIZED BY DOCTOR:BOBBY ZULETA clonazepam 0.5 mg ta blet RxNorm: 167362 1 Tablet(s) PO BID 03/13/2015 11/05/2015 Inactive sodium bicarbonate 6 50 mg tablet RxNorm: 411376 2 Tablet(s) PO BID 03/08/2015 06/02/2015 Inactive allopurinol 300 mg t ablet RxNorm: 941519 TAKE 1 TABLET BY MOUT H ONCE DAILY. 03/05/2015 09/30/2015 In active N O T I C E PRESCRIPTION PREVIOUSLY A UTHORIZED BY DOCTOR:BOBBY ZULETA Plavix 75 mg tablet RxNorm: 765072 1 Tablet(s) PO daily 02/12/2015 09/09/2015 Inactive clonazepam 0.5 mg ta blet RxNorm: 110872 1 Tablet(s) PO BID 02/11/2015 03/11/2015 Inactive Carafate 1 gram tablet RxNorm: 414708 TAKE 1 TABLET TWICE A DAY FOR 30 DAYS 02/08/2015 02/07/2015 In active Generic For:CARAFATE 1GM 02/08/2015 12:3 6:39 PM Carafate 1 gram tablet RxNorm: 029671 Tablet(s) TAKE 1 TABLET TWICE A DAY FOR 30 DAYS 02/08/2015 09/01/2015 Inactive Generic For:CARAFATE 1GM 02/08/2015 12:3 6:39 PM potassium chloride 2 0 mEq/15 mL oral liquid RxNorm: 989598 30 Milliliter(s) (40m Eq) PO daily 02/05/2015 12/01/2015 Inactive atenolol 50 mg tablet RxNorm: 264780 1 Tablet(s) PO daily 02/04/2015 05/03/2015 Inactive [SAVINGS FOR NON-COVERED DRUGS -- BIN:00 3585, PCN: [id number], Group: XXXXX, ID# XXXXXXX, Questions: . THIS IS NOT INSURANCE.] potassium chloride 2 0 mEq/15 mL oral liquid RxNorm: 496473 30 Milliliter(s) (40m Eq) PO daily 01/08/2015 02/04/2015 Inactive potassium chloride 2 0 mEq/15 mL oral liquid RxNorm: 821939 30 Milliliter(s) (40m Eq) PO daily 12/07/2014 01/07/2015 Inactive atenolol 50 mg tablet RxNorm: 579646 1 Tablet(s) PO daily 11/09/2014 11/08/2014 Inactive atenolol 50 mg tablet RxNorm: 173693 1 Tablet(s) PO daily 11/09/2014 02/03/2015 Inactive [SAVINGS FOR NON-COVERED DRUGS -- BIN:00 3585, PCN: ASPROD1, Group: XXXXX, ID# [id number], Questions: . THIS IS NOT INSURANCE.] cranberry 1,000 mg c apsule RxNorm: 809680 1 Capsule(s) PO daily No Start Date Active Voltaren 1 % topical gel RxNorm: 271456 TOP No St art Date Active atenolol 50 mg tablet RxNorm: 657962 1 Tablet(s) PO daily No Start Date Active verapamil ER (HS) 24 0 mg tablet,extended release 24 hr RxNorm: 762324 1 Tablet(s) PO daily No Start Date Active aspirin 81 mg tablet RxNorm: 241680 1 Tablet(s) PO daily No Start Date Active Zofran 4 mg tablet RxNorm: 387088 1 Tablet(s) PO PRN No Start Date Active B12 1000 mcg RxNorm: 1 Tablet(s) PO daily No Start Date Active Lipitor 40 mg tablet RxNorm: 748363 1 Tablet(s) PO daily No Start Date 10/08/2015 Inactive magnesium oxide 400 mg capsule RxNorm: 376238 2 Capsule(s) PO BID No Start Date Active Synthroid 150 mcg ta blet RxNorm: 843022 1 Tablet(s) PO daily No Start Date 04/04/2015 Inactive Coumadin 5 mg tablet RxNorm: 874016 1 Tablet(s) PO daily No Start Date 04/03/2015 Inactive allopurinol 300 mg t ablet RxNorm: 493376 1 Tablet(s) PO daily No Start Date 03/04/2015 Inactive Prilosec 20 mg capsu le,delayed release RxNorm: 428903 1 Capsule(s) PO PRN No Start Date 08/01/2015 Inactive potassium chloride 2 0 mEq/15 mL oral liquid RxNorm: 012773 30 Milliliter(s) (40m Eq) PO daily No Start Date 12/06/2014 Inactive Effexor 75 mg tablet RxNorm: 039716 1 Tablet(s) PO daily No Start Date 04/04/2015 Inactive Carafate 1 gram tablet RxNorm: 591415 1 Tablet(s) PO BID No Start Date 02/07/2015 Inactive clonazepam 0.5 mg ta blet RxNorm: 445006 1 Tablet(s) PO BID No Start Date 02/10/2015 Inactive Plavix 75 mg tablet RxNorm: 911466 1 Tablet(s) PO daily No Start Date 02/11/2015 Inactive sodium bicarbonate 6 50 mg tablet RxNorm: 361425 2 Tablet(s) PO BID No Start Date 09/01/2015 Inactive Fish Oil 1,000 mg ca psule RxNorm: 1 Capsule(s) PO daily No Start Date 01/13/2016 Inactive Detrol LA 4 mg capsu le,extended release RxNorm: 467174 1 Capsule(s) PO daily No Start Date [...] fatigue ICD-10: R53.83 ICD-9: 780.79 08/20/2016 Other senior care (current) drug therapy ICD-10: Z79.899 ICD-9: V58.69 [...] Code Item Item Code Result Date %Hba1C Pey129 % HbA1c 23569-1 6.4 % 10/23/2016 %Hba1C Una922 Gluc Ave 137 mg/dL 10/23/2016 Comp Metabolic Vck552 NA 138 mEq/L 10/23/2016 Comp Metabolic Owh633 K 3.4 mEq/L 10/23/2016 Comp Metabolic Chi776 CL 100 mEq/L 10/23/2016 Comp Metabolic Zuh894 CO2 30.0 mEq/L 10/23/2016 Comp Metabolic Uaz264 AN ION GAP 11 10/23/2016 Comp Metabolic Cwl522 GL UCOSE 139 mg/dL 10/23/2016 Comp Metabolic Kcy512 Cr eat 0.9 mg/dL 10/23/2016 Comp Metabolic Ekf811 eG FR 62 ml/min/1.73m2 10/23 Comp Metabolic Viv773 BUN 22 mg/dL 10/23/2016 Comp Metabolic Vst720 B/ C Ratio 23.4 Ratio 10/23/2016 Comp Metabolic Hpw344 CA LCIUM 8.7 mg/dL 10/23/2016 Comp Metabolic Jnj564 AL K PHOS 66 U/L 10/23/2016 Comp Metabolic Bmv892 T(SGOT) 20 U/L 10/23/2016 Comp Metabolic Qgg966 AL T(SGPT) 10 U/L 10/23/2016 Comp Metabolic Msr679 BI LI T 0.5 mg/dL 10/23/2016 Comp Metabolic Aga543 AL BUMIN 3.5 g/dL 10/23/2016 Comp Metabolic Ywc125 TP RO 6.3 g/dL 10/23/2016 Comp Metabolic Izl451 GL OB 2.8 g/dL 10/23/2016 Comp Metabolic Pep042 A/ G Ratio 1.3 Ratio 10/23/2016 Comp Metabolic Efa444 Os mo 281 mOsmo 10/23/2016 Pt Bru9478 PT 26.8 seconds 10/23/2016 Pt Aqa2482 INR 2.7 10/23/2016 Pt Vsy7981 Low Intensity - 1.5-2.0 10/23/2016 Pt Qcu5613 Mod intensity - 2.0-3.0 10/23/2016 Pt Vhh2902 Hi intensity - 3.0-4.0 10/23/2016 Pt Sug5994 PT 28.3 seconds 09/25/2016 Pt Sep0163 INR 2.8 09/25/2016 Pt Eho1235 Low Intensity - 1.5-2.0 09/25/2016 Pt Aqa0194 Mod intensity - 2.0-3.0 09/25/2016 Pt Wtn8577 Hi intensity - 3.0-4.0 09/25/2016 Metabolic Ord15 [...] Metabolic Ord15 CALCIUM 8.8 mg/dL 09/25/2016 Pt Yuf2521 PT 30.6 seconds 09/11/2016 Pt Dmn0522 INR 3.2 09/11/2016 Pt Mpx2682 Low Intensity - 1.5-2.0 09/11/2016 Pt Rdn4574 Mod intensity - 2.0-3.0 09/11/2016 Pt Tjo3266 Hi intensity - 3.0-4.0 09/11/2016 Comp Metabolic Ubh688 NA 138 mEq/L 09/11/2016 Comp Metabolic Neb184 K 4.4 mEq/L 09/11/2016 Comp Metabolic Xxp650 CL 103 mEq/L 09/11/2016 Comp Metabolic Bjf690 CO2 31.0 mEq/L 09/11/2016 Comp Metabolic Csr645 AN ION GAP 8 09/11/2016 Comp Metabolic Cru238 GL UCOSE 146 mg/dL 09/11/2016 Comp Metabolic Ybs668 Cr eat 1.0 mg/dL 09/11/2016 Comp Metabolic Gdi970 eG FR 60 ml/min/1.73m2 09/11 Comp Metabolic Zrn388 BUN 16 mg/dL 09/11/2016 Comp Metabolic Qfm047 B/ C Ratio 16.5 Ratio 09/11/2016 Comp Metabolic Qnq205 CA LCIUM 8.7 mg/dL 09/11/2016 Comp Metabolic Zgc421 AL K PHOS 52 U/L 09/11/2016 Comp Metabolic Lje564 T(SGOT) 19 U/L 09/11/2016 Comp Metabolic Fkw333 AL T(SGPT) 11 U/L 09/11/2016 Comp Metabolic Bko155 BI LI T 0.7 mg/dL 09/11/2016 Comp Metabolic Vet658 AL BUMIN 3.3 g/dL 09/11/2016 Comp Metabolic Fhy872 TP RO 5.8 g/dL 09/11/2016 Comp Metabolic Orv430 GL OB 2.5 g/dL 09/11/2016 Comp Metabolic Hpr019 A/ G Ratio 1.3 Ratio 09/11/2016 Comp Metabolic Aek623 Os mo 280 mOsmo 09/11/2016 C-Reactive Protein Qnt Crqnt CRP 0.1 mg/dl 08/21/2016 Comp Metabolic Ymy299 NA 139 mEq/L 08/21/2016 Comp Metabolic Uhh174 K 4.1 mEq/L 08/21/2016 Comp Metabolic Ylt304 CL 102 mEq/L 08/21/2016 Comp Metabolic Qif108 CO2 30.0 mEq/L 08/21/2016 Comp Metabolic Uoi841 AN ION GAP 11 08/21/2016 Comp Metabolic Mel491 GL UCOSE 148 mg/dL 08/21/2016 Comp Metabolic Hom475 Cr eat 1.0 mg/dL 08/21/2016 Comp Metabolic Gqj226 eG FR 55 ml/min/1.73m2 08/21 Comp Metabolic Llp725 BUN 21 mg/dL 08/21/2016 Comp Metabolic Pjv182 B/ C Ratio 20.2 Ratio 08/21/2016 Comp Metabolic Bdi706 CA LCIUM 9.4 mg/dL 08/21/2016 Comp Metabolic Bgs393 AL K PHOS 63 U/L 08/21/2016 Comp Metabolic Gdz266 T(SGOT) 23 U/L 08/21/2016 Comp Metabolic Xye797 AL T(SGPT) 16 U/L 08/21/2016 Comp Metabolic Gok423 BI LI T 0.6 mg/dL 08/21/2016 Comp Metabolic Zof923 AL BUMIN 3.9 g/dL 08/21/2016 Comp Metabolic Vow776 TP RO 6.8 g/dL 08/21/2016 Comp Metabolic Bsv982 GL OB 2.9 g/dL 08/21/2016 Comp Metabolic Anx574 A/ G Ratio 1.4 Ratio 08/21/2016 Comp Metabolic Goh221 Os mo 283 mOsmo 08/21/2016 Sed Rate Ord21 ESR 16 mm/hr 08/21/2016 Pt Adz6430 PT 27.2 seconds 08/21/2016 Pt Fcw3707 INR 2.7 08/21/2016 Pt Umf1452 Low Intensity - 1.5-2.0 08/21/2016 Pt Ips2114 Mod intensity - 2.0-3.0 08/21/2016 Pt Gsj7719 Hi intensity - 3.0-4.0 08/21/2016 Magnesium Ord90 Mag 1.9 mg/dL 08/21/2016 Pt Mci1798 PT 25.9 seconds 06/17/2016 Pt Bwm1934 INR 2.5 06/17/2016 Pt Hum8215 Low Intensity - 1.5-2.0 06/17/2016 Pt Bmd0602 Mod intensity - 2.0-3.0 06/17/2016 Pt Kay4901 Hi intensity - 3.0-4.0 06/17/2016 Tsh Ord6 hTSH II 2.13 uIU/mL 06/08/2016 Free T4 Lpw828 FREE T4 0.79 ng/dL 06/08/2016 Cbc With [...] 80.8 fl 06/08/2016 Cbc With Differential Ord2 Crosby% 12.0 % 06/08/2016 Cbc With Differential Ord2 MCH 26.8 pg 06/08/2016 Cbc With Differential Ord2 Eos% 5.0 % 06/08/2016 Cbc With Differential Ord2 MCHC 33.2 pg 06/08/2016 Cbc With Differential Ord2 PLT 196 K/ul 06/08/2016 Cbc With Differential Ord2 Baso% 1.7 % 06/08/2016 Cbc With Differential Ord2 RDW 16.0 % 06/08/2016 Cbc With Differential Ord2 Neut ABS# 3.27 K/ul 06/08/2016 Cbc With Differential Ord2 Lymph ABS# 1.40 K/ul 06/08/2016 Cbc With Differential Ord2 Crosby ABS# 0.7 K/ul 06/08/2016 Cbc With Differential Ord2 Eos ABS# 0.3 K/ul 06/08/2016 Cbc With Differential Ord2 Baso ABS# 0.1 K/ul 06/08/2016 %Hba1C Ail857 % HbA1c 27079-9 6.2 % 06/08/2016 %Hba1C Muw199 Gluc Ave 131 mg/dL 06/08/2016 Comp Metabolic Ykg130 NA 138 mEq/L 06/08/2016 Comp Metabolic Xvk061 K 3.9 mEq/L 06/08/2016 Comp Metabolic Uzi267 CL 105 mEq/L 06/08/2016 Comp Metabolic Nmj001 CO2 27.0 mEq/L 06/08/2016 Comp Metabolic Okk055 AN ION GAP 10 06/08/2016 Comp Metabolic Ugg244 GL UCOSE 127 mg/dL 06/08/2016 Comp Metabolic Jdg617 Cr eat 1.0 mg/dL 06/08/2016 Comp Metabolic Xtq980 eG FR 59 ml/min/1.73m2 06/08 Comp Metabolic Bvt278 BUN 19 mg/dL 06/08/2016 Comp Metabolic Dtd430 B/ C Ratio 19.4 Ratio 06/08/2016 Comp Metabolic Wyv121 CA LCIUM 9.2 mg/dL 06/08/2016 Comp Metabolic Myp888 AL K PHOS 77 U/L 06/08/2016 Comp Metabolic Kve789 T(SGOT) 19 U/L 06/08/2016 Comp Metabolic Khy842 AL T(SGPT) 13 U/L 06/08/2016 Comp Metabolic Dwx856 BI LI T 0.5 mg/dL 06/08/2016 Comp Metabolic Gfj986 AL BUMIN 3.8 g/dL 06/08/2016 Comp Metabolic Uly145 TP RO 6.6 g/dL 06/08/2016 Comp Metabolic Hyk776 GL OB 2.8 g/dL 06/08/2016 Comp Metabolic Gtj901 A/ G Ratio 1.4 Ratio 06/08/2016 Comp Metabolic Elr582 Os mo 280 mOsmo 06/08/2016 Pt Sen7071 PT 36.1 seconds 06/08/2016 Pt Qwm4115 INR 3.9 06/08/2016 Pt Pph1610 Low Intensity - 1.5-2.0 06/08/2016 Pt Knr7790 Mod intensity - 2.0-3.0 06/08/2016 Pt Xbs8075 Hi intensity - 3.0-4.0 06/08/2016 Lipid Ord30 CHOL 149 mg/dL 06/08/2016 Lipid Ord30 HDL 46.0 mg/dl 06/08/2016 Lipid Ord30 TRIG 279 mg/dL 06/08/2016 Lipid Ord30 LDL 47 mg/dL 06/08/2016 Lipid Ord30 C/HDL 3.2 Ratio 06/08/2016 Pt Frb0271 PT 30.9 seconds 02/12/2016 Pt Agm1690 INR 3.2 02/12/2016 Pt Art3730 Low Intensity - 1.5-2.0 02/12/2016 Pt Kxb6542 Mod intensity - 2.0-3.0 02/12/2016 Pt Sam3964 Hi intensity - 3.0-4.0 02/12/2016 Free T4 Dsw660 FREE T4 1.24 ng/dL 09/27/2015 %Hba1C Rsj211 % HbA1c 60231-4 6.4 % 09/27/2015 %Hba1C Mtl373 Gluc Ave 137 mg/dL 09/27/2015 Tsh Ord6 hTSH II 0.37 uIU/mL 09/27/2015 Pt Olc1479 PT 26.2 seconds 09/27/2015 Pt Mrx0412 INR 2.5 09/27/2015 Pt Nie2249 Low Intensity - 1.5-2.0 09/27/2015 Pt Fbf6614 Mod intensity - 2.0-3.0 09/27/2015 Pt Gfs0157 Hi intensity - 3.0-4.0 09/27/2015 Pt Obf5961 PT 27.6 seconds 2015 Pt Tqw7073 INR 2.7 2015 Pt Rlj2609 Low Intensity - 1.5-2.0 2015 Pt Cwb5244 Mod intensity - 2.0-3.0 2015 Pt Keg6978 Hi intensity - 3.0-4.0 2015 %Hba1C Bgz688 % HbA1c 70767-7 6.1 % 06/11/2015 %Hba1C Yvt789 Gluc Ave 128 mg/dL 06/11/2015 Cbc With [...] Ord2 RDW 15.8 % 06/10/2015 Comp Metabolic Xqq324 NA 139 mEq/L 06/10/2015 Comp Metabolic Kcx608 K 4.1 mEq/L 06/10/2015 Comp Metabolic Aby751 CL 105 mEq/L 06/10/2015 Comp Metabolic Ypw296 CO2 27.0 mEq/L 06/10/2015 Comp Metabolic Fnb755 AN ION GAP 11 06/10/2015 Comp Metabolic Bba866 GL UCOSE 127 mg/dL 06/10/2015 Comp Metabolic Uiy650 Cr eat 1.0 mg/dL 06/10/2015 Comp Metabolic Vex011 eG FR 59 ml/min/1.73m2 06/10 Comp Metabolic Ezt608 BUN 21 mg/dL 06/10/2015 Comp Metabolic Cie459 B/ C Ratio 21.2 Ratio 06/10/2015 Comp Metabolic Bpj433 CA LCIUM 9.2 mg/dL 06/10/2015 Comp Metabolic Qim499 AL K PHOS 87 U/L 06/10/2015 Comp Metabolic Izt921 T(SGOT) 20 U/L 06/10/2015 Comp Metabolic Akv046 AL T(SGPT) 17 U/L 06/10/2015 Comp Metabolic Abm684 BI LI T 0.4 mg/dL 06/10/2015 Comp Metabolic Tcw524 AL BUMIN 4.1 g/dL 06/10/2015 Comp Metabolic Yzz857 TP RO 7.2 g/dL 06/10/2015 Comp Metabolic Ybd253 GL OB 3.1 g/dL 06/10/2015 Comp Metabolic Uva174 A/ G Ratio 1.3 Ratio 06/10/2015 Comp Metabolic Jdl646 Os mo 282 mOsmo 06/10/2015 Tsh Ord6 hTSH II 0.86 uIU/mL 06/10/2015 Lipid Ord30 CHOL 161 mg/dL 06/10/2015 Lipid Ord30 HDL 49.0 mg/dl 06/10/2015 Lipid Ord30 TRIG 208 mg/dL 06/10/2015 Lipid Ord30 LDL 70 mg/dL 06/10/2015 Lipid Ord30 C/HDL 3.3 Ratio 06/10/2015 Pt Ysi7979 PT 25.0 seconds 04/09/2015 Pt Crz8023 INR 2.4 04/09/2015 Pt Lax2939 Low Intensity - 1.5-2.0 04/09/2015 Pt Kuw4318 Mod intensity - 2.0-3.0 04/09/2015 Pt Zmr0189 Hi intensity - 3.0-4.0 04/09/2015 Free T4 Fhr221 FREE T4 1.05 ng/dL 01/22/2015 Pt Kku9681 PT 27.2 seconds 01/22/2015 Pt Upf6254 INR 2.6 01/22/2015 Pt Pvi4183 Low Intensity - 1.5-2.0 01/22/2015 Pt Gum1386 Mod intensity - 2.0-3.0 01/22/2015 Pt Gyj7661 Hi intensity - 3.0-4.0 01/22/2015 Cbc With [...] Differential Ord2 RDW 15.2 % 01/22/2015 B12 Rgj386 B12 402.00 pg/ml 01/22/2015 Tsh Ord6 hTSH II 0.65 uIU/mL 01/22/2015 Lipid Ord30 CHOL 166 mg/dL 01/22/2015 Lipid Ord30 HDL 48.0 mg/dl 01/22/2015 Lipid Ord30 TRIG 264 mg/dL 01/22/2015 Lipid Ord30 LDL 65 mg/dL 01/22/2015 Lipid Ord30 C/HDL 3.5 Ratio 01/22/2015 Comp Metabolic Znk501 NA 138 mEq/L 01/22/2015 Comp Metabolic Vbe634 K 4.1 mEq/L 01/22/2015 Comp Metabolic Rcg789 CL 104 mEq/L 01/22/2015 Comp Metabolic Agw207 CO2 29.0 mEq/L 01/22/2015 Comp Metabolic Hhs873 AN ION GAP 9 01/22/2015 Comp Metabolic Fdq226 GL UCOSE 106 mg/dL 01/22/2015 Comp Metabolic Wxi927 Cr eat 0.9 mg/dL 01/22/2015 Comp Metabolic Xih177 eG FR 63 ml/min/1.73m2 01/22 Comp Metabolic Zrc997 BUN 21 mg/dL 01/22/2015 Comp Metabolic Nwt176 B/ C Ratio 22.3 Ratio 01/22/2015 Comp Metabolic Vxs412 CA LCIUM 9.4 mg/dL 01/22/2015 Comp Metabolic Sea054 AL K PHOS 83 U/L 01/22/2015 Comp Metabolic Ppx970 T(SGOT) 23 U/L 01/22/2015 Comp Metabolic Jkt152 AL T(SGPT) 18 U/L 01/22/2015 Comp Metabolic Uui945 BI LI T 0.8 mg/dL 01/22/2015 Comp Metabolic Ipm839 AL BUMIN 4.2 g/dL 01/22/2015 Comp Metabolic Yks725 TP RO 7.3 g/dL 01/22/2015 Comp Metabolic Jqx768 GL OB 3.1 g/dL 01/22/2015 Comp Metabolic Riq626 A/ G Ratio 1.4 Ratio 01/22/2015 Comp Metabolic Bmq248 Os mo 279 mOsmo 01/22/2015 Review of [...] 1: 144/72 Code: 8480-6 BMI: 46.1 Code: 82780-6 Heart Rate 1: 78 bpm Height: 5'1" SpO2: 98% Weight: 244 lbs 09/30/2016 Blood Pressure 1: 130/76 Code: 8480-6 BMI: 45.0 Code: 87229-5 Heart Rate 1: 86 bpm Height: 5'1" SpO2: 98% Weight: 238 lbs 09/10/2016 Blood Pressure 1: 136/68 Code: 8480-6 BMI: 46.3 Code: 15139-9 Heart Rate 1: 83 bpm Height: 5'1" SpO2: 98% Weight: 245 lbs 08/20/2016 Blood Pressure 1: 142/78 Code: 8480-6 BMI: 45.3 Code: 03398-2 Heart Rate 1: 84 bpm Height: 5'1" SpO2: 99% Weight: 240 lbs 06/08/2016 Blood Pressure 1: 134/76 Code: 8480-6 BMI: 44.2 Code: 15448-6 Heart Rate 1: 86 bpm Height: 5'1" SpO2: 96% Weight: 234 lbs 04/02/2016 Blood Pressure 1: 142/70 Code: 8480-6 BMI: 44.6 Code: 95173-4 Heart Rate 1: 78 bpm Height: 5'1" SpO2: 97% Weight: 236 lbs 01/14/2016 Blood Pressure 1: 146/72 Code: 8480-6 BMI: 44.2 Code: 14754-9 Heart Rate 1: 86 bpm Height: 5'1" SpO2: 96% Weight: 234 lbs 10/02/2015 Blood Pressure 1: 158/76 Code: 8480-6 BMI: 44.2 Code: 45591-3 Heart Rate 1: 67 bpm Height: 5'1" SpO2: 97% Weight: 234 lbs 07/15/2015 Blood Pressure 1: 148/78 Code: 8480-6 Blood Pressure 1: 200/90 Code: 8480-6 BMI: 44.0 Code: 47348-1 Heart Rate 1: 89 bpm Height: 5'1" SpO2: 97% Weight: 233 lbs 06/10/2015 Blood Pressure 1: 140/82 Code: 8480-6 BMI: 44.0 Code: 13403-0 Heart Rate 1: 78 bpm Height: 5'1" [...] wearing crocs and there was a new uzbek on the floor: her foot didn't move [...] Encounters Encounter Performer Loca tion Codes Date ([id number]) [id number] EST. P ATIENT, LEVEL IV Diagnosis: Essential (primary) hypertension[ICD10: I10] Diagnosis: Localized edema[ICD10: R60.0] Diagnosis: Pain in right hip[ICD10: M25.551] Sarai Almanza MD, [facility] CPT-4: 42759 11/02/2016 [id number]) 09345 EST. P [facility], LEV[facility] Diagnosis: Essential (primary) hypertension[ICD10: I10] Diagnosis: Localized edema[ICD10: R60.0] Sarai Almanza MD, [facility] CPT-4: 76669 09/30/2016 [id number] EST. PATIENT, LEVEL IV Diagnosis: Localized edema[ICD10: R60.0] Diagnosis: Pain in joints of left hand[ICD10: M25.542] Diagnosis: Pain in joints of right hand[ICD10: M25.541] Nata Almanza MD, [facility] CPT-4: 17089 09/10/2016 [id number] EST. PATIENT, LEVEL IV Diagnosis: Localized edema[ICD10: R60.0] Diagnosis: Pain in joints of left hand[ICD10: M25.542] Diagnosis: Pain in joints of right hand[ICD10: M25.541] Diagnosis: Other fatigue[ICD10: R53.83] Nata Almanza MD, [facility] CPT-4: 39637 08/20/2016 29967 EST. PATIENT, LEVEL IV Diagnosis: Essential (primary) hypertension[ICD10: I10] Diagnosis: Other senior care (current) drug therapy[ICD10: Z79.899] Diagnosis: Tinnitus, bilateral[ICD10: H93.13] Nata Almanza MD, [facility] CPT-4: 08698 06/08/2016 24905 EST. PATIENT, LEVEL IV Diagnosis: Other allergic rhinitis[ICD10: J30.89] Diagnosis: Acute laryngopharyngitis[ICD10: J06.0] Nata Almanza MD, [facility] CPT-4: 02388 04/02/2016 [id number] EST. PATIENT, LEVEL IV Diagnosis: Left upper quadrant pain[ICD10: R10.12] Nata Almanza MD, [facility] CPT-4: 13106 01/14/2016 57232 EST. PATIENT, LEVEL IV Diagnosis: Pain in left shoulder[ICD10: M25.512] Diagnosis: Body mass index (BMI) 40.0-44.9, adult[ICD10: Z68.41] Nata Almanza MD, [facility] CPT-4: 88238 10/02/2015 04002 EST. PATIENT, LEVEL IV Diagnosis: Pain in left leg[ICD10: M79.605] Diagnosis: Other senior care (current) drug therapy[ICD10: Z79.899] Nata Almanza MD, [facility] CPT-4: 59336 07/15/2015 ([id number]) 50234 EST. 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: Other [employer] (current) drug therapy[ICD10: Z79.899] Edna Almanza MD, [facility] CPT-4: 86517 06/10/2015 ([id number]) OFFICE VISI T, NEW - LEVEL 4 Diagnosis: ESSENTIAL HYPERTENSION[ICD9: 401.9] Diagnosis: HYPOTHYROIDISM[ICD9: 244.9] Diagnosis: ENCNTR LONG-RX USE NEC[ICD9: V58.69] Diagnosis: HYPERLIPIDEMIA[ICD9: 272.4] Diagnosis: Vitamin B12 deficiency[ICD9: 266.2] Diagnosis: Status post gastric surgery[ICD9: V45.89] Diagnosis: Snoring[ICD9: 786.09] [facility] CPT-4: 05589 01/22/2015 Plan of Care Planned Activity Notes [...] [place]. 11/02/2016 [facility]ment: [facility] [phone] [facility] ([facility] min) Moderate 11/02/2016 Patient Education: Patient Medication Summary Completed 11/02/2016 Patient Education: Obesity Completed 11/02/2016 Care Plan: SCREENINGMAMMOGRAPHYDIGITAL [facility] : 19075-7 Pending 11/02/2016 Patient Education: Patient Medication Summary [...] peripheral edema. 09/30/2016 Appointment: Sarai Almanza WPtel: [facility] [place] 2[place] ([facility] min) Moderate 09/30/2016 Patient Education: [...] peripheral edema. 09/10/2016 Appointment: Nata Hsu WPtel: [facility] [place][note 2][address] (30 min) Complex 09/10/2016 Patient Education: [...] edema. 08/20/2016 Appointment: Nata Hsu WPtel: [facility] [place][note 2][address] (30 min) Complex 08/20/2016 Patient Education: Patient Medication Summary Completed 08/20/2016 Referral: Otf Lee [address] Referral Initiated 07/02/2016 Visit Plan: Chronic [...] 06/08/2016 Care Plan: Referral Order SNOMED-CT : [id number] Pending 06/08/2016 Visit Plan: URI - Pt [...] allergy spray. 04/02/2016 Appointment: Nata Hsu WPtel: [facility] [place] 2[facility] ([facility] Complex 04/02/2016 Patient [...] pain 01/14/2016 Appointment: Edna Douglas WPtel: [facility] [place][note 2]9 [phone] [place] (30 min) Complex 01/14/2016 Patient Education: Patient Medication Summary Completed 01/14/2016 Patient Education: Obesity Completed 01/14/2016 Care Plan: BMI Above normal followup DAVID F-MGMT EDUC & TRAIN 1 PT Pending 10/24/2015 Care Plan: X-RAY EXAM OF SHOULDER LOINC : 32028-4 Pending 10/24/2015 Visit Plan: Left shoulder pain [...] check. 10/02/2015 Appointment: Edna Douglas WPtel: [facility] [place] 2[facility] ([facility] min) Moderate 10/02/2015 Patient [...] Completed 06/10/2015 App[facility]ment: Sar[facility] [phone] [facility] (15 min) Moderate 04/22/2015 Visit [...] have surgical fixation - planning occurring at [facility].Snoring - Sleep apnea symptoms with difficulty loosing [...] to medications. 01/22/2015 Appointment: Sarai Almanza WPtel: [facility] [place] 2]5 [facility] [place] ([place] New Patient 01/22/2015 Patient Education: Patient Medication Summary Completed 01/22/2015 Patient Education: Hypertension Completed 01/22/2015 Referral: Otf Lee [facility] [address] Referral Initiated Instructions Comment . Chronic [...] INR is between 2.[address] willis kaplan e the staff get [...] have surgical fixation - planning occurring at [facility]. Snoring - Sleep apnea symptoms [...]
--- OUTSIDE RECORDS SUMMARY | 2020-01-16 23:08 | XMS REPORT | CCD ---
Author Author Kat Almanza Organization Sarai Almanza MD, [facility] Address [address] [place] [address] Phone Care Team Providers Care Repeater Chief Name Role Phone PP Unavailable CCM Unavailable Summary Purpose Interface Exchange Insurance Providers Payer name Policy type / Coverage type Covered constitution party ID Effective Begin Date Effective End Date WPS Medicare Part B Medicare Part B [id number] 2017 Unknown [employer] [place] Medicare Part B [id number] 2017 Unknown Family history Father Diagnosis Age At Onset Hyperlipidemia Unknown Heart Attack Unknown Mother Diagnosis Age At Onset Arthritis Unknown Social History Social History Element Codes Description Effective Dates Marital status Unknown M arried Nathan 09/30/2016 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 Number of children Unknown 3 01/22/[address]: 397617003 Never smoker 01/22/[address]: 013587923 Never drinks alcohol 01/22/2015 Allergies, Adverse Reactions, Alerts Substance Reaction Codes Entered Date Inactivated Date Status * NO KNOWN DRUG ORIN RGIES Unknown 01/22/2015 No Inactive Date Active Past Medical History Illness Codes Condition Status Onset Date Resolved Date Mixed hyperlipidemia ICD-9: 272.4 ICD-10: E78.2 Active 06/09/2015 Unknown Hypothyroidism, unsp ecified ICD-9: 244.9 ICD-10: E03.9 Active 05/27/2017 Unknown roasterman (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 ICD-9: V58.61 ICD-10: [...] ecified ICD-9: 244.9 ICD-10: E03.9 05/27/2017 Active roasterman (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 ICD-9: V58.61 ICD-10: [...] E R 20 mEq tablet,extended release RxNorm: 499880 2 Tablet(s) PO daily 10/18/2018 02/14/2019 Active potassium chloride E R 20 mEq tablet,extended release RxNorm: 258434 1 Tablet(s) PO daily 10/03/2018 10/17/2018 Inactive Carafate 1 gram tablet RxNorm: 273930 TAKE ONE TABLET BY MOUTH BEFORE MEALS AN D AT BEDTIME 09/26/2018 11/16/2018 Active Plavix 75 mg tablet RxNorm: 402512 TAKE ONE TABLET BY MOUTH DAILY 09/02/2018 02/28/2019 Ac tive prednisone 10 mg tablet RxNorm: 712855 Tablet(s) PO 09/02/2018 No Stop Date Active 60,60,50,50,40,40,30,30,20,20,10,10 Synthroid 125 mcg ta blet RxNorm: 278339 1 Tablet(s) PO daily 09/02/2018 08/27/2019 Active potassium chloride E R 20 mEq tablet,extended release RxNorm: 976255 1 Tablet(s) PO daily 09/02/2018 09/01/2018 Inactive potassium chloride E R 20 mEq tablet,extended release RxNorm: 454951 1 Tablet(s) PO daily 09/02/2018 10/02/2018 Inactive Synthroid 125 mcg ta blet RxNorm: 405465 1 Tablet(s) PO daily 09/02/2018 09/01/2018 Inactive Keflex 500 mg capsule RxNorm: 530541 1 Capsule(s) PO TID 09/02/2018 09/08/2018 Inactive Kenalog 40 mg/mL maxine pension for injection RxNorm: 1410888 Milliliter(s) Inj 09/02/2018 09/02/2018 In active Lipitor 40 mg tablet RxNorm: 104248 TAKE ONE TABLET BY MOUTH DAILY 07/29/2018 07/23/2019 Ac tive Coumadin 1 mg tablet RxNorm: 755197 TAKE ONE TABLET BY MOUTH DAILY 07/29/2018 10/26/2018 Ac tive Carafate 1 gram tablet RxNorm: 710271 TAKE ONE TABLET BY MOUTH BEFORE MEALS AN D AT BEDTIME 07/28/2018 09/17/2018 Inactive Coumadin 4 mg tablet RxNorm: 508958 2 Tablet(s) daily 07/11/2018 02/05/2019 Active Generi c For:COUMADIN 4MG 07/22/2017 8:58:26 AM Coumadin 5 mg tablet RxNorm: 323750 Tablet(s) TAKE 1 TABLET BY MOUTH DIRE CTED 07/08/2018 01/03/2019 Ac tive Generic For:COUMADIN 5MG TAB 03/21/2018 9:13:00 AM Coumadin 4 mg tablet RxNorm: 669346 Tablet(s) TAKE 1 TABLET BY MOUTH THREE T IMES PER WEEK (WEDNESDAY, WEDNESDAY AND WEDNESDAY) 07/08/2018 07/10/2018 Inactive Gene andre For:COUMADIN 4MG 07/22/2017 8:58:26 AM Coumadin 1 mg tablet RxNorm: 489140 1 Tablet(s) PO daily 07/08/2018 08/06/2018 Inactive venlafaxine ER 75 mg capsule,extended release 24 hr RxNorm: 925331 Capsule(s) TAKE 1 CAPSULE BY MOUTH ONCE DAILY 06/23/2018 06/17/2019 Active Generic For:*EFFEXOR XR 75MG 06/19/2017 12:23:45 PM sodium bicarbonate 6 50 mg tablet RxNorm: 944247 Tablet(s) TAKE 2 TABL ETS BY MOUTH TWICE DAILY 06/23/2018 12/19/2018 Active 12/20/2017 9:10:59 AM Coumadin 1 mg tablet RxNorm: 761723 1 Tablet(s) PO daily 06/17/2018 07/07/2018 Inactive Coumadin 1 mg tablet RxNorm: 391254 1 Tablet(s) PO daily 06/17/2018 06/16/2018 Inactive clonazepam 0.5 mg ta blet RxNorm: 351214 1 Tablet(s) PO BID 06/08/2018 11/04/2018 Active spironolactone 25 mg tablet RxNorm: 596885 TAKE 1 TABLET BY MOUT H EVERY DAY 05/18/2018 05/12/2019 Ac tive Generic For:*ALDACTONE 25MG 05/18/2018 8:57:50 AM Carafate 1 gram tablet RxNorm: 399081 TAKE ONE TABLET BY MOUTH BEFORE MEALS AN D AT BEDTIME 05/18/2018 07/12/2018 Inactive Generic For:CARAFATE 1GM 1 07/18/2017 8:38:28 AM Synthroid 137 mcg ta blet RxNorm: 606375 TAKE 1 TABLET BY MOUT H ONCE DAILY 05/18/2018 08/30/2018 In active Generic For:SYNTHROID 137MCG TAB 2017 8:57:54 AM allopurinol 300 mg t ablet RxNorm: 767685 TAKE 1 TABLET BY MOUT H ONCE DAILY. 04/18/2018 10/14/2018 In active Generic For:ZYLOPRIM 300 MG TABLET 03/22 9:13:47 AM Lasix 20 mg tablet RxNorm: 098448 TAKE ONE TABLET BY MOUTH DAILY 04/18/2018 08/15/2018 In active Generic For:LASIX 20MG 04/18/2018 9:13: 50 AM Carafate 1 gram tablet RxNorm: 712779 TAKE ONE TABLET BY MOUTH BEFORE MEALS AN D AT BEDTIME 04/18/2018 05/17/2018 Inactive Generic For:CARAFATE 1GM 1 9:32:51 AM Coumadin 5 mg tablet RxNorm: 460789 TAKE 1 TABLET BY MOUTH DIRECTED 03/21/2018 07/07/2018 In active Generic For:COUMADIN 5MG TAB 03/21/2018 9:13:00 AM Carafate 1 gram tablet RxNorm: 441668 TAKE ONE TABLET BY MOUTH BEFORE MEALS AN D AT BEDTIME 03/21/2018 04/17/2018 Inactive Generic For:CARAFATE 1GM 1 9:14:24 AM Carafate 1 gram tablet RxNorm: 221465 1 Tablet(s) PO AC & HS 02/17/2018 03/20/2018 Inactive atenolol 100 mg tablet RxNorm: 225947 1 Tablet(s) PO daily 02/04/2018 09/01/2018 Inactive atenolol 50 mg tablet RxNorm: 557131 1 Tablet(s) PO daily 02/03/2018 02/03/2018 Inactive omeprazole 20 mg cap sean,delayed release RxNorm: 995995 1 Capsule(s) BID 01/21/2018 01/15/2019 Ac tive Generic For:PRILOSEC 20MG 07/22/2017 8:5 8:20 AM Carafate 1 gram tablet RxNorm: 522527 1 Tablet(s) PO AC & HS 01/21/2018 02/16/2018 Inactive Carafate 1 gram tablet RxNorm: 170013 1 Tablet(s) PO AC & HS 01/18/2018 01/20/2018 Inactive Carafate 1 gram tablet RxNorm: 643747 1 Tablet(s) PO AC & HS 01/18/2018 02/27/2018 Inactive Carafate 1 gram tablet RxNorm: 871101 1 Tablet(s) PO AC & HS TAKE ONE TABLET B Y MOUTH TWICE DAILY 01/18/2018 05/17/2018 Inactive Generic For:CARAFATE 1GM 0 12/20/2017 9:10:56 AM omeprazole 20 mg cap sean,delayed release RxNorm: 385520 Capsule(s) TAKE 1 CAP SEAN BY MOUTH EVERY DAY 01/17/2018 01/20/2018 Inactive Generic For:PRILOSEC 20MG 0 07/22/2017 8:58:20 AM omeprazole 20 mg cap sean,delayed release RxNorm: 427173 Capsule(s) TAKE 1 CAP SEAN BY MOUTH EVERY DAY 01/14/2018 01/16/2018 Inactive Generic For:PRILOSEC 20MG 07/22/2017 8:58:20 AM clonazepam 0.5 mg ta blet RxNorm: 091367 1 Tablet(s) PO BID 01/07/2018 06/05/2018 Inactive Plavix 75 mg tablet RxNorm: 337606 1 Tablet(s) PO daily 01/07/2018 07/05/2018 Inactive Carafate 1 gram tablet RxNorm: 404288 1 Tablet(s) PO AC & HS 01/04/2018 01/17/2018 Inactive Lasix 20 mg tablet RxNorm: 887920 TAKE ONE TABLET BY MOUTH DAILY 12/20/2017 04/17/2018 In active Generic For:LASIX 20MG 12/20/2017 9:11: 03 AM sodium bicarbonate 6 50 mg tablet RxNorm: 144571 TAKE 2 TABLETS BY JAVON TH TWICE DAILY 12/20/2017 06/17/2018 In active 12/20/2017 9:10:59 AM Carafate 1 gram tablet RxNorm: 647137 TAKE ONE TABLET BY MOUTH TWICE DAILY 12/20/2017 01/17/2018 In active Generic For:CARAFATE 1GM 12/20/2017 9:1 0:56 AM Synthroid 137 mcg ta blet RxNorm: 753236 TAKE 1 TABLET BY MOUT H ONCE DAILY 11/19/2017 05/17/2018 In active Generic For:SYNTHROID 137MCG TAB 2017 8:58:04 AM Detrol LA 4 mg capsu le,extended release RxNorm: 988346 TAKE 1 CAPSULE BY JAVON TH ONCE DAILY 10/20/2017 04/13/2018 Inactive Generic For:DETROL LA 4MG C AP 10/20/2017 9:01:56 AM allopurinol 300 mg t ablet RxNorm: 338613 TAKE 1 TABLET BY MOUT H ONCE DAILY. 10/20/2017 04/17/2018 In active Generic For:ZYLOPRIM 300 MG TABLET 07/2017 9:01:59 AM Coumadin 5 mg tablet RxNorm: 798437 1 Tablet(s) PO UD 10/01/2017 03/20/2018 Inactive cyclobenzaprine 5 mg tablet RxNorm: 078406 1 Tablet(s) PO TID as needed myscle spasm 09/23/2017 10/12/2017 Inactive Lipitor 40 mg tablet RxNorm: 650697 TAKE 1 TABLET BY MOUTH ONCE DAILY 09/20/2017 07/28/2018 In active Generic For:LIPITOR 40MG 09/20/2017 8:5 6:04 AM atenolol 100 mg tablet RxNorm: 099711 1 Tablet(s) PO daily 08/30/2017 02/03/2018 Inactive atenolol 50 mg tablet RxNorm: 808006 1 Tablet(s) PO daily 08/30/2017 08/30/2017 Inactive Lovenox 30 mg/0.3 mL subcutaneous syringe RxNorm: 306250 0.3 Milliliter(s) SQ Q12H 08/24/2017 09/06/2017 In active Lasix 20 mg tablet RxNorm: 917566 TAKE ONE TABLET BY MOUTH DAILY 08/23/2017 12/19/2017 In active Generic For:LASIX 20MG 08/21/2017 9:04: 27 AM Synthroid 137 mcg ta blet RxNorm: 535016 TAKE 1 TABLET BY MOUT H ONCE DAILY 08/23/2017 11/18/2017 In active Generic For:SYNTHROID 137MCG TAB 2017 9:04:30 AM Lovenox 30 mg/0.3 mL subcutaneous syringe RxNorm: 546942 0.3 Milliliter(s) SQ Q12H 08/10/2017 08/23/2017 In active clonazepam 0.5 mg ta blet RxNorm: 285572 1 Tablet(s) PO BID 08/04/2017 12/30/2017 Inactive omeprazole 20 mg cap sean,delayed release RxNorm: 442673 TAKE 1 CAPSULE BY JAVON TH EVERY DAY 07/22/2017 01/13/2018 Inactive Generic For:PRILOSEC 20MG 07/22/2017 8: 58:20 AM Coumadin 4 mg tablet RxNorm: 845275 TAKE 1 TABLET BY MOUTH THREE TIMES PER W GAMBELL (WEDNESDAY, WEDNESDAY AND WEDNESDAY) 07/22/2017 10/03/2018 Inactive Generic For:COUMADIN 4MG 07/22/2017 8:58:26 AM Coumadin 4 mg tablet RxNorm: 160389 TAKE 1 TABLET BY MOUTH THREE TIMES PER W GAMBELL (WEDNESDAY, WEDNESDAY AND WEDNESDAY) 07/22/2017 02/16/2018 Inactive Generic For:COUMADIN 4MG 07/22/2017 8:58:26 AM sodium bicarbonate 6 50 mg tablet RxNorm: 917232 TAKE 2 TABLETS BY JAVON TH TWICE DAILY 06/22/2017 12/18/2017 In active 06/19/2017 12:23:30 PM venlafaxine ER 75 mg capsule,extended release 24 hr RxNorm: 428517 TAKE 1 CAPSULE BY MOUTH ONCE DAILY 06/22/2017 06/16/2018 Inactive Generic For:*EFFEXOR XR 75M G 06/19/2017 12:23:45 PM Coumadin 5 mg tablet RxNorm: 359411 1 Tablet(s) PO UD 06/01/2017 09/30/2017 Inactive Keflex 500 mg capsule RxNorm: 559631 1 Capsule(s) PO TID 05/27/2017 06/02/2017 Inactive Synthroid 137 mcg ta blet RxNorm: 992808 TAKE 1 TABLET BY MOUT H ONCE DAILY 05/24/2017 08/21/2017 In active Generic For:SYNTHROID 137MCG TAB 2016 8:55:59 AM Carafate 1 gram tablet RxNorm: 095837 TAKE ONE TABLET BY MOUTH TWICE DAILY 05/24/2017 12/19/2017 In active Generic For:CARAFATE 1GM 05/24/2017 8:5 5:54 AM spironolactone 25 mg tablet RxNorm: 508572 1 Tablet(s) PO daily 05/24/2017 05/17/2018 Inactive Detrol LA 4 mg capsu le,extended release RxNorm: 387064 1 Capsule(s) PO daily TAKE 1 CAPSULE BY MOUTH ONCE DAILY 05/10/2017 10/19/2017 Inactive Generic For:DETROL LA 4MG CAP 02/19/2017 2:36:00 PM Lasix 20 mg tablet RxNorm: 647785 TAKE ONE TABLET BY MOUTH DAILY 04/23/2017 08/20/2017 In active Generic For:LASIX 20MG 04/23/2017 9:04: 01 AM Coumadin 4 mg tablet RxNorm: 897347 TAKE 1 TABLET BY MOUTH THREE TIMES PER W GAMBELL (WEDNESDAY, WEDNESDAY AND WEDNESDAY) 04/23/2017 07/21/2017 Inactive Generic For:COUMADIN 4MG 04/23/2017 9:04:05 AM allopurinol 300 mg t ablet RxNorm: 150345 TAKE 1 TABLET BY MOUT H ONCE DAILY. 04/23/2017 10/19/2017 In active Generic For:ZYLOPRIM 300 MG TABLET 08/2016 9:03:57 AM potassium chloride 2 0 mEq/15 mL oral liquid RxNorm: 342305 Milliliter(s) 30 Milliliter(s) (40mEq) PO daily 03/24/2017 07/21/2017 Inactive Lovenox 30 mg/0.3 mL subcutaneous syringe RxNorm: 009699 0.3 Milliliter(s) SQ Q12H 03/22/2017 03/26/2017 In active Lovenox 30 mg/0.3 mL subcutaneous syringe RxNorm: 358088 0.3 Milliliter(s) SQ Q12H 03/19/2017 03/20/2017 In active Lovenox 30 mg/0.3 mL subcutaneous syringe RxNorm: 592298 0.3 Milliliter(s) SQ Q12H 03/16/2017 03/18/2017 In active clonazepam 0.5 mg ta blet RxNorm: 452892 1 Tablet(s) PO BID 03/02/2017 10/03/2018 Inactive Lovenox 30 mg/0.3 mL subcutaneous syringe RxNorm: 348210 1 injection SQ BID do NOT take the night time dose the day before surgery, or the morning dose the day of surgery 03/01/2017 03/07/2017 Inactive Lovenox 30 mg/0.3 mL subcutaneous syringe RxNorm: 103815 1 injection SQ BID 03/01/2017 02/28/2017 In active Detrol LA 4 mg capsu le,extended release RxNorm: 356926 TAKE 1 CAPSULE BY JAVON TH ONCE DAILY 02/19/2017 05/09/2017 Inactive Generic For:DETROL LA 4MG C AP 02/19/2017 2:36:00 PM hydrocodone 5 mg-humberto taminophen 325 mg tablet RxNorm: 816482 1-2 Tablet(s) PO Q6 P RN 02/04/2017 No Stop Date Active Zetia 10 mg tablet RxNorm: 773332 TAKE 1 TABLET BY MOUTH DAILY 01/25/2017 04/13/2018 Inactive 01/23/2017 9:03:48 AM omeprazole 20 mg cap sean,delayed release RxNorm: 473190 TAKE 1 CAPSULE BY JAVON TH EVERY DAY 01/25/2017 07/21/2017 Inactive Generic For:PRILOSEC 20MG 01/23/2017 9: 03:45 AM Coumadin 4 mg tablet RxNorm: 770922 TAKE 1 TABLET BY MOUTH THREE TIMES PER W GAMBELL (WEDNESDAY, WEDNESDAY AND WEDNESDAY) 01/25/2017 04/22/2017 Inactive Generic For:COUMADIN 4MG 01/23/2017 9:03:51 AM sodium bicarbonate 6 50 mg tablet RxNorm: 607923 TAKE 2 TABLETS BY JAVON TH TWICE DAILY 12/24/2016 06/21/2017 In active 12/24/2016 9:09:27 AM Lasix 20 mg tablet RxNorm: 816290 1 Tablet(s) PO daily 12/24/2016 04/22/2017 Inactive Synthroid 137 mcg ta blet RxNorm: 416005 TAKE 1 TABLET BY MOUT H ONCE DAILY 11/24/2016 05/22/2017 In active Generic For:SYNTHROID 137MCG TAB 2016 9:04:37 AM Coumadin 4 mg tablet RxNorm: 327020 TAKE 1 TABLET BY MOUTH THREE TIMES PER W GAMBELL (WEDNESDAY, WEDNESDAY AND WEDNESDAY) 11/24/2016 01/22/2017 Inactive Generic For:COUMADIN 4MG 11/24/2016 9:04:41 AM hydrocodone 5 mg-humberto taminophen 325 mg tablet RxNorm: 049330 1-2 Tablet(s) PO Q6 P RN 11/17/2016 02/03/2017 In active Carafate 1 gram tablet RxNorm: 022879 TAKE ONE TABLET BY MOUTH TWICE DAILY 10/27/2016 05/23/2017 In active Generic For:CARAFATE 1GM 10/26/2016 8:3 9:42 AM allopurinol 300 mg t ablet RxNorm: 448044 Tablet(s) TAKE 1 TABL ET BY MOUTH ONCE DAILY. 10/26/2016 04/22/2017 Inactive Lipitor 40 mg tablet RxNorm: 307142 1 Tablet(s) PO daily 09/25/2016 09/19/2017 Inactive Coumadin 4 mg tablet RxNorm: 406388 TAKE 1 TABLET BY MOUTH THREE TIMES PER W GAMBELL (WEDNESDAY, WEDNESDAY AND WEDNESDAY) 09/25/2016 11/23/2016 Inactive Generic For:COUMADIN 4MG 09/25/2016 8:55:58 AM Zetia 10 mg tablet RxNorm: 230094 1 Tablet(s) PO daily 09/25/2016 01/22/2017 Inactive gave 1 month of samples clonazepam 0.5 mg ta blet RxNorm: 349993 1 Tablet(s) PO BID 09/21/2016 10/03/2018 Inactive Lasix 20 mg tablet RxNorm: 924550 1 Tablet(s) PO daily 09/15/2016 12/23/2016 Inactive potassium chloride 2 0 mEq/15 mL oral liquid RxNorm: 619522 Milliliter(s) 30 Milliliter(s) (40mEq) PO daily 09/15/2016 01/12/2017 Inactive Lasix 20 mg tablet RxNorm: 386142 2 Tablet(s) PO daily 09/10/2016 09/12/2016 Inactive Lasix 20 mg tablet RxNorm: 407969 1 Tablet(s) PO daily 08/28/2016 08/30/2016 Inactive Lasix 20 mg tablet RxNorm: 145398 1 Tablet(s) PO daily 08/20/2016 08/22/2016 Inactive Detrol LA 4 mg capsu le,extended release RxNorm: 647356 TAKE 1 CAPSULE BY JAVON TH ONCE DAILY 07/27/2016 02/18/2017 Inactive Generic For:DETROL LA 4MG C AP 07/27/2016 9:08:27 AM Coumadin 4 mg tablet RxNorm: 060958 1 Tablet(s) PO 3 x week wed and sun 07/27/2016 09/24/2016 In active omeprazole 20 mg cap sean,delayed release RxNorm: 668134 Capsule(s) PO TAKE 1 CAPSULE BY MOUTH ONCE DAILY 07/27/2016 01/22/2017 Inactive venlafaxine ER 75 mg capsule,extended release 24 hr RxNorm: 960494 1 Capsule(s) PO daily 06/29/2016 06/21/2017 Inactive sodium bicarbonate 6 50 mg tablet RxNorm: 685917 TAKE 2 TABLETS BY [facility] TWICE DAILY 06/29/2016 12/23/2016 In active 06/27/2016 9:05:39 AM Coumadin 4 mg tablet RxNorm: 016385 1 Tablet(s) PO 3 x week [facility] and sun 06/09/2016 06/08/2016 In active Coumadin 4 mg tablet RxNorm: 978515 1 Tablet(s) PO 3 x week e and sun 06/09/2016 07/26/2016 In active Zetia 10 mg tablet RxNorm: 049928 1 Tablet(s) PO daily 06/09/2016 06/08/2016 Inactive gave 1 month of samples Zetia 10 mg tablet RxNorm: 172060 1 Tablet(s) PO daily 06/09/2016 09/24/2016 Inactive gave 1 month of samples Effexor 75 mg tablet RxNorm: 643636 1 Tablet(s) PO daily 06/08/2016 06/28/2016 Inactive spironolactone 25 mg tablet RxNorm: 580215 1 Tablet(s) PO daily 06/08/2016 05/23/2017 Inactive Synthroid 137 mcg ta blet RxNorm: 235292 1 Tablet(s) PO daily 05/07/2016 11/02/2016 Inactive allopurinol 300 mg t ablet RxNorm: 833221 Tablet(s) TAKE 1 TABL ET BY MOUTH ONCE DAILY. 04/28/2016 10/24/2016 Inactive clonazepam 0.5 mg ta blet RxNorm: 032755 1 Tablet(s) PO BID 04/20/2016 10/03/2018 Inactive Flonase Allergy Reli ef 50 mcg/actuation nasal spray,suspension RxNorm: 3703694 1 [place] NASAL BID 04/02/2016 No Stop Date Active Zithromax Z-Thomas 250 mg tablet RxNorm: 646188 Tablet(s) PO 04/02/2016 08/27/2016 Inactive cetirizine 10 mg tablet RxNorm: 3887696 1 Tablet(s) PO daily 04/02/2016 05/01/2016 Inactive Carafate 1 gram tablet RxNorm: 158086 Tablet(s) TAKE 1 TABLET TWICE A DAY FOR 30 DAYS 03/30/2016 10/25/2016 Inactive Generic For:CARAFATE 1GM 02/08/2015 12:3 6:39 PM Plavix 75 mg tablet RxNorm: 428689 1 Tablet(s) PO daily 03/11/2016 09/06/2016 Inactive sodium bicarbonate 6 50 mg tablet RxNorm: 391623 Tablet(s) 2 Tablet(s) PO BID 02/28/2016 06/26/2016 In active omeprazole 20 mg cap sean,delayed release RxNorm: 430939 Capsule(s) PO TAKE 1 CAPSULE BY MOUTH ONCE DAILY 01/31/2016 07/26/2016 Inactive Fish Oil 1,000 mg ca psule RxNorm: 1 Capsule(s) PO BID 01/14/2016 No Stop Date Active Synthroid 137 mcg ta blet RxNorm: 753281 1 Tablet(s) PO daily 01/14/2016 05/06/2016 Inactive Detrol LA 4 mg capsu le,extended release RxNorm: 295222 TAKE 1 CAPSULE BY JAVON TH ONCE DAILY 12/30/2015 07/26/2016 Inactive Generic For:DETROL LA 4MG C AP 12/30/2015 9:11:01 AM potassium chloride 2 0 mEq/15 mL oral liquid RxNorm: 513438 Milliliter(s) 30 Milliliter(s) (40mEq) PO daily 12/02/2015 03/30/2016 Inactive sodium bicarbonate 6 50 mg tablet RxNorm: 447944 Tablet(s) 2 Tablet(s) PO BID 10/31/2015 02/27/2016 In active Lipitor 40 mg tablet RxNorm: 552678 1 Tablet(s) PO daily 10/09/2015 09/24/2016 Inactive sodium bicarbonate 6 50 mg tablet RxNorm: 752521 2 Tablet(s) PO BID 10/01/2015 10/30/2015 Inactive allopurinol 300 mg t ablet RxNorm: 795012 TAKE 1 TABLET BY MOUT H ONCE DAILY. 10/01/2015 04/27/2016 In active Generic For:ZYLOPRIM 300 MG TABLET 09/19 9:21:15 AM clonazepam 0.5 mg ta blet RxNorm: 858049 1 Tablet(s) PO BID 09/30/2015 04/19/2016 Inactive Coumadin 5 mg tablet RxNorm: 238529 1 Tablet(s) PO daily 09/27/2015 05/31/2017 Inactive Generic For:COUMADIN 5MG TAB N O T I C E PRESCRIPTION PREVIOUSLY AUTHORIZED BY DOCTOR:BOBBY ZULETA Synthroid 125 mcg ta blet RxNorm: 679442 1 Tablet(s) PO daily 09/27/2015 09/26/2015 Inactive Synthroid 125 mcg ta blet RxNorm: 692786 1 Tablet(s) PO daily 09/27/2015 01/13/2016 Inactive Carafate 1 gram tablet RxNorm: 293650 Tablet(s) TAKE 1 TABLET TWICE A DAY FOR 30 DAYS 09/02/2015 03/29/2016 Inactive Generic For:CARAFATE 1GM 02/08/2015 12:3 6:39 PM sodium bicarbonate 6 50 mg tablet RxNorm: 586655 2 Tablet(s) PO BID 09/02/2015 09/30/2015 Inactive Prilosec 20 mg capsu le,delayed release RxNorm: 703113 TAKE 1 CAPSULE BY JAVON TH ONCE DAILY 08/02/2015 01/28/2016 Inactive Generic For:PRILOSEC 20MG 08/02/2015 10:03:09 AM N O T I C E PRESCRIPTION PREVIOUSLY AUTHORIZED BY DOCTOR:BOBBY ZULETA Zyrtec 10 mg capsule RxNorm: 9591684 1 Capsule(s) PO daily 07/15/2015 08/13/2015 Inactive Keflex 500 mg capsule RxNorm: 329299 1 Capsule(s) PO TID 07/15/2015 07/21/2015 Inactive cetirizine 10 mg cap sean RxNorm: 0706639 1 Capsule(s) PO daily 07/15/2015 08/13/2015 Inactive hydrocodone 5 mg-humberto taminophen 325 mg tablet RxNorm: 497352 1-2 Tablet(s) PO Q6 P RN 06/10/2015 11/16/2016 In active sodium bicarbonate 6 50 mg tablet RxNorm: 433945 2 Tablet(s) PO BID 06/03/2015 08/31/2015 Inactive Detrol LA 4 mg capsu le,extended release RxNorm: 163426 TAKE 1 CAPSULE BY JAVON TH ONCE DAILY 06/03/2015 12/29/2015 Inactive Generic For:DETROL LA 4MG C AP N O T I C E PRESCRIPTION PREVIOUSLY AUTHORIZED BY DOCTOR:BOBBY ZULETA atenolol 50 mg tablet RxNorm: 470272 1 Tablet(s) PO daily TAKE 1 TABLET BY MO UTH DAILY 05/07/2015 08/23/2017 Inactive Generic For:TENORMIN 50MG 05/04/2015 9:07:22 AM spironolactone 25 mg tablet RxNorm: 197365 1 Tablet(s) PO daily 05/06/2015 06/07/2016 Inactive venlafaxine ER 75 mg capsule,extended release 24 hr RxNorm: 400899 1 Capsule(s) PO daily 05/04/2015 06/28/2016 Inactive atenolol 50 mg tablet RxNorm: 564452 TAKE 1 TABLET BY MOUTH DAILY 05/04/2015 05/06/2015 Inactive Generic For:TENORMIN 50MG 05/04/2015 9: 07:22 AM Synthroid 150 mcg ta blet RxNorm: 511397 TAKE 1 TABLET BY MOUT H ONCE DAILY. 04/05/2015 09/26/2015 In active Generic For:SYNTHROID 150MCG TAB 2014 4:45:40 PM N O T I C E PRESCRIPTION PREVIOUSLY AUTHORIZED BY DOCTOR:BOBBY ZULETA Effexor 75 mg tablet RxNorm: 501642 1 Tablet(s) PO daily 04/05/2015 07/03/2015 Inactive Coumadin 5 mg tablet RxNorm: 268138 TAKE 1 AND 1/2 TABLETS BY MOUTH ONCE MYRANDA LY 04/04/2015 09/26/2015 In active Generic For:COUMADIN 5MG TAB N O T I C E PRESCRIPTION PREVIOUSLY AUTHORIZED BY DOCTOR:BOBBY ZULETA clonazepam 0.5 mg ta blet RxNorm: 869568 1 Tablet(s) PO BID 03/13/2015 11/05/2015 Inactive sodium bicarbonate 6 50 mg tablet RxNorm: 574045 2 Tablet(s) PO BID 03/08/2015 06/02/2015 Inactive allopurinol 300 mg t ablet RxNorm: 817834 TAKE 1 TABLET BY MOUT H ONCE DAILY. 03/05/2015 09/30/2015 In active N O T I C E PRESCRIPTION PREVIOUSLY A UTHORIZED BY DOCTOR:BOBBY ZULETA Plavix 75 mg tablet RxNorm: 868366 1 Tablet(s) PO daily 02/12/2015 09/09/2015 Inactive clonazepam 0.5 mg ta blet RxNorm: 065004 1 Tablet(s) PO BID 02/11/2015 03/11/2015 Inactive Carafate 1 gram tablet RxNorm: 080547 TAKE 1 TABLET TWICE A DAY FOR 30 DAYS 02/08/2015 02/07/2015 In active Generic For:CARAFATE 1GM 02/08/2015 12:3 6:39 PM Carafate 1 gram tablet RxNorm: 423672 Tablet(s) TAKE 1 TABLET TWICE A DAY FOR 30 DAYS 02/08/2015 09/01/2015 Inactive Generic For:CARAFATE 1GM 02/08/2015 12:3 6:39 PM potassium chloride 2 0 mEq/15 mL oral liquid RxNorm: 627553 30 Milliliter(s) (40m Eq) PO daily 02/05/2015 12/01/2015 Inactive atenolol 50 mg tablet RxNorm: 387424 1 Tablet(s) PO daily 02/04/2015 05/03/2015 Inactive [SAVINGS FOR NON-COVERED DRUGS -- BIN:00 3585, PCN: [id number], Group: XXXXX, ID# [id number], Questions: . THIS IS NOT INSURANCE.] potassium chloride 2 0 mEq/15 mL oral liquid RxNorm: 290620 30 Milliliter(s) (40m Eq) PO daily 01/08/2015 02/04/2015 Inactive potassium chloride 2 0 mEq/15 mL oral liquid RxNorm: 508282 30 Milliliter(s) (40m Eq) PO daily 12/07/2014 01/07/2015 Inactive atenolol 50 mg tablet RxNorm: 836503 1 Tablet(s) PO daily 11/09/2014 11/08/2014 Inactive atenolol 50 mg tablet RxNorm: 049200 1 Tablet(s) PO daily 11/09/2014 02/03/2015 Inactive [SAVINGS FOR NON-COVERED DRUGS -- BIN:00 5, PCN: [id number], Group: XXXXX, ID# [id number], Questions: . THIS IS NOT INSURANCE.] Voltaren 1 % topical gel RxNorm: 662752 TOP No St art Date Active verapamil ER (HS) 24 0 mg tablet,extended release 24 hr RxNorm: 091663 1 Tablet(s) PO daily No Start Date Active aspirin 81 mg tablet RxNorm: 847075 1 Tablet(s) PO daily No Start Date Active Zofran 4 mg tablet RxNorm: 834745 1 Tablet(s) PO PRN No Start Date Active B12 1000 mcg RxNorm: 1 Tablet(s) PO daily No Start Date Active magnesium oxide 400 mg capsule RxNorm: 634326 2 Capsule(s) PO BID No Start Date Active Synthroid 150 mcg ta blet RxNorm: 188251 1 Tablet(s) PO daily No Start Date 04/04/2015 Inactive Coumadin 5 mg tablet RxNorm: 375743 1 Tablet(s) PO daily No Start Date 04/03/2015 Inactive cranberry 1,000 mg c apsule RxNorm: 230647 1 Capsule(s) PO daily No Start Date 04/13/2018 Inactive allopurinol 300 mg t ablet RxNorm: 365627 1 Tablet(s) PO daily No Start Date 03/04/2015 Inactive Prilosec 20 mg capsu le,delayed release RxNorm: 203197 1 Capsule(s) PO PRN No Start Date 08/01/2015 Inactive potassium chloride 2 0 mEq/15 mL oral liquid RxNorm: 503316 30 Milliliter(s) (40m Eq) PO daily No Start Date 12/06/2014 Inactive atenolol 50 mg tablet RxNorm: 436968 1 Tablet(s) PO daily No Start Date 08/29/2017 Inactive Lipitor 40 mg tablet RxNorm: 407720 1 Tablet(s) PO daily No Start Date 09/19/2017 Inactive Effexor 75 mg tablet RxNorm: 941208 1 Tablet(s) PO daily No Start Date 04/04/2015 Inactive Carafate 1 gram tablet RxNorm: 732917 1 Tablet(s) PO BID No Start Date 02/07/2015 Inactive clonazepam 0.5 mg ta blet RxNorm: 828934 1 Tablet(s) PO BID No Start Date 02/10/2015 Inactive Plavix 75 mg tablet RxNorm: 698550 1 Tablet(s) PO daily No Start Date 02/11/2015 Inactive sodium bicarbonate 6 50 mg tablet RxNorm: 560069 2 Tablet(s) PO BID No Start Date 09/01/2015 Inactive Lovenox 30 mg/0.3 mL subcutaneous syringe RxNorm: 794669 0.3 Milliliter(s) SQ Q12H No Start Date 03/15/2017 Inactive Fish Oil 1,000 mg ca psule RxNorm: 1 Capsule(s) PO daily No Start Date 01/13/2016 Inactive Detrol LA 4 mg capsu le,extended release RxNorm: 326515 1 Capsule(s) PO daily No Start Date 06/02/2015 Inactive Medication Administered Medication Codes Instruc tions Start Date Status Kenalog 40 mg/mL suspension for injection RxNorm: 7620299 Milliliter 09/02/2018 No longer Active Immunizations Vaccine Codes Date Status SHINGARIX CVX: 121 03/23 completed Assessments Condition Codes Effectiv e Dates Mixed hyperlipidemia ICD-10: E78.2 ICD-9: 272.4 10/05/2018 Other acute sinusitis ICD-10: J01.80 ICD-9: 461.8 09/02/2018 Other allergic rhinitis ICD-10: J30. 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.899 ICD-9: V58.69 [...] Code Item Item Code Result Date Pt Kqv8792 PT 26.3 seconds 10/13/2018 Pt Oop3333 INR 2.5 10/13/2018 Pt Nao4608 Low Intensity - 1.5-2.0 10/13/2018 Pt Adr8703 Mod intensity - 2.0-3.0 10/13/2018 Pt Hoq1504 Hi intensity - 3.0-4.0 10/13/2018 Lipid Ord30 CHOL 180 mg/dL 10/07/2018 Lipid Ord30 HDL 74.0 mg/dl 10/07/2018 Lipid Ord30 TRIG 111 mg/dL 10/07/2018 Lipid Ord30 LDL 84 mg/dL 10/07/2018 Lipid Ord30 C/HDL 2.4 Ratio 10/07/2018 Pt Tgg2306 PT 38.1 seconds 10/07/2018 Pt Evs5935 INR 3.9 10/07/2018 Pt Wmj3659 Low Intensity - 1.5-2.0 10/07/2018 Pt Otm2450 Mod intensity - 2.0-3.0 10/07/2018 Pt Atk8283 Hi intensity - 3.0-4.0 10/07/2018 Tsh Ord6 TSH (3rd IS) 0.43 uIU/mL 09/02/2018 Comp Metabolic Bkq391 NA 136 mEq/L 09/02/2018 Comp Metabolic Aiq894 K 4.1 mEq/L 09/02/2018 Comp Metabolic Typ356 CL 103 mEq/L 09/02/2018 Comp Metabolic Epf911 CO2 20.0 mEq/L 09/02/2018 Comp Metabolic Fjd790 AN ION GAP 17 09/02/2018 Comp Metabolic Wov554 GL UCOSE 124 mg/dL 09/02/2018 Comp Metabolic Wvx797 Cr eat 1.0 mg/dL 09/02/2018 Comp Metabolic Mgw869 eG FR 57 ml/min/1.73m2 09/02 Comp Metabolic Uaj773 BUN 24 mg/dL 09/02/2018 Comp Metabolic Nrs043 B/ C Ratio 23.8 Ratio 09/02/2018 Comp Metabolic Jfr241 CA LCIUM 9.5 mg/dL 09/02/2018 Comp Metabolic Tcq741 AL K PHOS 64 U/L 09/02/2018 Comp Metabolic Bjv817 T(SGOT) 24 U/L 09/02/2018 Comp Metabolic Dzf618 AL T(SGPT) 23 U/L 09/02/2018 Comp Metabolic Uez836 BI LI T 0.5 mg/dL 09/02/2018 Comp Metabolic Mds848 AL BUMIN 4.2 g/dL 09/02/2018 Comp Metabolic Jnj774 TP RO 7.4 g/dL 09/02/2018 Comp Metabolic Jmp312 GL OB 3.2 g/dL 09/02/2018 Comp Metabolic Svb931 A/ G Ratio 1.3 Ratio 09/02/2018 Comp Metabolic Dhv927 Os mo 277 mOsmo 09/02/2018 Pt Mxs3325 PT 40.6 seconds 09/02/2018 Pt Gqi2780 INR 4.2 09/02/2018 Pt Qvj3418 Low Intensity - 1.5-2.0 09/02/2018 Pt Axg2178 Mod intensity - 2.0-3.0 09/02/2018 Pt Jnu0786 Hi intensity - 3.0-4.0 09/02/2018 Free T4 Lyl192 FREE T4 1.51 ng/dL 09/02/2018 Magnesium Ord90 Mag 1.8 mg/dL 09/02/2018 Pt Hnw1787 PT 29.2 seconds 08/05/2018 Pt Izv2903 INR 2.8 08/05/2018 Pt Zgx9534 Low Intensity - 1.5-2.0 08/05/2018 Pt Wka0393 Mod intensity - 2.0-3.0 08/05/2018 Pt Tks3322 Hi intensity - 3.0-4.0 08/05/2018 Pt Xnq8996 PT 30.2 seconds 07/25/2018 Pt Idr5230 INR 2.9 07/25/2018 Pt Ghl5796 Low Intensity - 1.5-2.0 07/25/2018 Pt Hrj7165 Mod intensity - 2.0-3.0 07/25/2018 Pt Iig8689 Hi intensity - 3.0-4.0 07/25/2018 Pt Tpa0897 PT 25.2 seconds 07/19/2018 Pt Roh8547 INR 2.3 07/19/2018 Pt Pcj7436 Low Intensity - 1.5-2.0 07/19/2018 Pt Qsr3907 Mod intensity - 2.0-3.0 07/19/2018 Pt Xue9874 Hi intensity - 3.0-4.0 07/19/2018 Pt Mxq7098 PT 17.4 seconds 07/15/2018 Pt Oqp2385 INR 1.5 07/15/2018 Pt Oso4754 Low Intensity - 1.5-2.0 07/15/2018 Pt Qhc0974 Mod intensity - 2.0-3.0 07/15/2018 Pt Xig0078 Hi intensity - 3.0-4.0 07/15/2018 Pt Zvg0677 PT 17.8 seconds 07/08/2018 Pt Exv0243 INR 1.5 07/08/2018 Pt Ufw1451 Low Intensity - 1.5-2.0 07/08/2018 Pt Gal6827 Mod intensity - 2.0-3.0 07/08/2018 Pt Xfi5895 Hi intensity - 3.0-4.0 07/08/2018 Pt Pgb7036 PT 19.2 seconds 07/01/2018 Pt Yqc7709 INR 1.7 07/01/2018 Pt Zkf0271 Low Intensity - 1.5-2.0 07/01/2018 Pt Rck2602 Mod intensity - 2.0-3.0 07/01/2018 Pt Nqo0530 Hi intensity - 3.0-4.0 07/01/2018 Pt Vvw8469 PT 17.4 seconds 06/23/2018 Pt Lbw4415 INR 1.5 06/23/2018 Pt Sov1325 Low Intensity - 1.5-2.0 06/23/2018 Pt Ojo4969 Mod intensity - 2.0-3.0 06/23/2018 Pt Vlc2874 Hi intensity - 3.0-4.0 06/23/2018 Pt Khc5800 PT 18.4 seconds 06/17/2018 Pt Nwz6960 INR 1.6 06/17/2018 Pt Rsp4863 Low Intensity - 1.5-2.0 06/17/2018 Pt Hve4815 Mod intensity - 2.0-3.0 06/17/2018 Pt Tuw5516 Hi intensity - 3.0-4.0 06/17/2018 Sed Rate [...] 30.4 pg 06/08/2018 Cbc With Differential Ord2 Bl[place]% 9.4 % 06/08/2018 Cbc With Differential Ord2 [...] 1.20 K/ul 06/08/2018 Cbc With Differential Ord2 [place] ABS# 0.5 K/ul 06/08/2018 Cbc With Differential Ord2 Eos ABS# 0.1 K/ul 06/08/2018 Cbc With Differential Ord2 Baso ABS# 0.1 K/ul 06/08/2018 C-Reactive Protein Qnt Crqnt CRP 0.1 mg/dl 06/08/2018 Pt Wxm1639 PT 17.6 seconds 06/08/2018 Pt Mvu3327 INR 1.5 06/08/2018 Pt Hul8514 Low Intensity - 1.5-2.0 06/08/2018 Pt Udg4695 Mod intensity - 2.0-3.0 06/08/2018 Pt Pkz2587 Hi intensity - 3.0-4.0 06/08/2018 Pt Cmc3339 PT 16.8 seconds 05/10/2018 Pt Jlc3327 INR 1.4 05/10/2018 Pt Ado8282 Low Intensity - 1.5-2.0 05/10/2018 Pt Qco8790 Mod intensity - 2.0-3.0 05/10/2018 Pt Kpi5985 Hi intensity - 3.0-4.0 05/10/2018 Pt Dnm7754 PT 16.7 seconds 05/04/2018 Pt Pdy1685 INR 1.4 05/04/2018 Pt Eaq3943 Low Intensity - 1.5-2.0 05/04/2018 Pt Zjn3614 Mod intensity - 2.0-3.0 05/04/2018 Pt Rzw0791 Hi intensity - 3.0-4.0 05/04/2018 Free T4 Spw681 FREE T4 1.09 ng/dL 04/14/2018 Tsh Ord6 TSH (3rd IS) 2.36 uIU/mL 04/14/2018 Pt Owh9846 PT 20.3 seconds 04/14/2018 Pt Hum0660 INR 1.8 04/14/2018 Pt Asa6331 Low Intensity - 1.5-2.0 04/14/2018 Pt Lcq3384 Mod intensity - 2.0-3.0 04/14/2018 Pt Abj2216 Hi intensity - 3.0-4.0 04/14/2018 Lipid Ord30 CHOL 149 mg/dL 04/14/2018 Lipid Ord30 HDL 49.0 mg/dl 04/14/2018 Lipid Ord30 TRIG 161 mg/dL 04/14/2018 Lipid Ord30 LDL 68 mg/dL 04/14/2018 Lipid Ord30 C/HDL 3.0 Ratio 04/14/2018 %Hba1C Qrk220 % HbA1c 26127-8 5.9 % 04/14/2018 %Hba1C Tal927 Gluc Ave 123 mg/dL 04/14/2018 Comp Metabolic Wqo099 NA 140 mEq/L 04/14/2018 Comp Metabolic Lxf153 K 4.1 mEq/L 04/14/2018 Comp Metabolic Cad650 CL 105 mEq/L 04/14/2018 Comp Metabolic Cqm274 CO2 28.0 mEq/L 04/14/2018 Comp Metabolic Gqh124 AN ION GAP 11 04/14/2018 Comp Metabolic Idu731 GL UCOSE 112 mg/dL 04/14/2018 Comp Metabolic Ugr038 Cr eat 1.0 mg/dL 04/14/2018 Comp Metabolic Vwx998 eG FR 58 ml/min/1.73m2 04/14 Comp Metabolic Brz680 BUN 20 mg/dL 04/14/2018 Comp Metabolic Mzc740 B/ C Ratio 20.2 Ratio 04/14/2018 Comp Metabolic Omx410 CA LCIUM 10.0 mg/dL 04/14/2018 Comp Metabolic Vwt298 AL K PHOS 51 U/L 04/14/2018 Comp Metabolic Rwn038 T(SGOT) 24 U/L 04/14/2018 Comp Metabolic Osz966 AL T(SGPT) 21 U/L 04/14/2018 Comp Metabolic Llk303 BI LI T 0.8 mg/dL 04/14/2018 Comp Metabolic Rzw219 AL BUMIN 4.2 g/dL 04/14/2018 Comp Metabolic Jyu220 TP RO 7.1 g/dL 04/14/2018 Comp Metabolic Obo997 GL OB 2.9 g/dL 04/14/2018 Comp Metabolic Hzu958 A/ G Ratio 1.5 Ratio 04/14/2018 Comp Metabolic Xqs515 Os mo 283 mOsmo 04/14/2018 Cbc With [...] 30.7 pg 04/14/2018 Cbc With Differential Ord2 Blanco% 10.6 % 04/14/2018 Cbc With Differential Ord2 [...] 1.18 K/ul 04/14/2018 Cbc With Differential Ord2 [place] ABS# 0.5 K/ul 04/14/2018 Cbc With Differential Ord2 Eos ABS# 0.2 K/ul 04/14/2018 Cbc With Differential Ord2 Baso ABS# 0.1 K/ul 04/14/2018 Pt Los5508 PT 29.3 seconds 02/11/2018 Pt Cje3235 INR 2.8 02/11/2018 Pt Yph7034 Low Intensity - 1.5-2.0 02/11/2018 Pt Kpi3697 Mod intensity - 2.0-3.0 02/11/2018 Pt Sao2105 Hi intensity - 3.0-4.0 02/11/2018 Comp Metabolic Icf667 NA 141 mEq/L 01/05/2018 Comp Metabolic Fqe790 K 3.7 mEq/L 01/05/2018 Comp Metabolic Tvq864 CL 102 mEq/L 01/05/2018 Comp Metabolic Qik735 CO2 29.0 mEq/L 01/05/2018 Comp Metabolic Mrw958 AN ION GAP 14 01/05/2018 Comp Metabolic Fll700 GL UCOSE 136 mg/dL 01/05/2018 Comp Metabolic Ixd445 Cr eat 1.0 mg/dL 01/05/2018 Comp Metabolic Sji760 eG FR 61 ml/min/1.73m2 01/05 Comp Metabolic Yuq541 BUN 22 mg/dL 01/05/2018 Comp Metabolic Yds801 B/ C Ratio 22.9 Ratio 01/05/2018 Comp Metabolic Jjd763 CA LCIUM 9.7 mg/dL 01/05/2018 Comp Metabolic Jrm056 AL K PHOS 57 U/L 01/05/2018 Comp Metabolic Nag990 T(SGOT) 21 U/L 01/05/2018 Comp Metabolic Crc367 AL T(SGPT) 19 U/L 01/05/2018 Comp Metabolic Ofg257 BI LI T 0.9 mg/dL 01/05/2018 Comp Metabolic Lso558 AL BUMIN 4.1 g/dL 01/05/2018 Comp Metabolic Oha951 TP RO 7.1 g/dL 01/05/2018 Comp Metabolic Vzp697 GL OB 3.0 g/dL 01/05/2018 Comp Metabolic Kbm876 A/ G Ratio 1.4 Ratio 01/05/2018 Comp Metabolic Wwy028 Os mo 287 mOsmo 01/05/2018 Free T4 Gxf645 FREE T4 1.05 ng/dL 01/05/2018 %Hba1C Gnj364 % HbA1c 18670-4 6.0 % 01/05/2018 %Hba1C Pqc347 Gluc Ave 126 mg/dL 01/05/2018 Cbc With [...] 30.6 pg 01/05/2018 Cbc With Differential Ord2 [place]% 10.5 % 01/05/2018 Cbc With Differential Ord2 [...] 1.27 K/ul 01/05/2018 Cbc With Differential Ord2 [place] ABS# 0.5 K/ul 01/05/2018 Cbc With Differential Ord2 Eos ABS# 0.2 K/ul 01/05/2018 Cbc With Differential Ord2 Baso ABS# 0.1 K/ul 01/05/2018 Pt Qoq2312 PT 20.7 seconds 01/05/2018 Pt Pgf9483 INR 1.8 01/05/2018 Pt Hiz1277 Low Intensity - 1.5-2.0 01/05/2018 Pt Tnl0315 Mod intensity - 2.0-3.0 01/05/2018 Pt Tfz7411 Hi intensity - 3.0-4.0 01/05/2018 Tsh Ord6 TSH (3rd IS) 2.34 uIU/mL 01/05/2018 Lipid Ord30 CHOL 156 mg/dL 01/05/2018 Lipid Ord30 HDL 48.0 mg/dl 01/05/2018 Lipid Ord30 TRIG 207 mg/dL 01/05/2018 Lipid Ord30 LDL 67 mg/dL 01/05/2018 Lipid Ord30 C/HDL 3.3 Ratio 01/05/2018 Pt Eoe7035 PT 28.3 seconds 11/26/2017 Pt Zms2980 INR 2.6 11/26/2017 Pt Mck7169 Low Intensity - 1.5-2.0 11/26/2017 Pt Inm5858 Mod intensity - 2.0-3.0 11/26/2017 Pt Skr2675 Hi intensity - 3.0-4.0 11/26/2017 Pt Blm0995 PT 36.5 seconds 11/19/2017 Pt Wuy5368 INR 3.6 11/19/2017 Pt Gii6530 Low Intensity - 1.5-2.0 11/19/2017 Pt Dsh3846 Mod intensity - 2.0-3.0 11/19/2017 Pt Clf2201 Hi intensity - 3.0-4.0 11/19/2017 Pt Hsg2924 PT 22.9 seconds 10/15/2017 Pt Eji2002 INR 2.0 10/15/2017 Pt Vtq0139 Low Intensity - 1.5-2.0 10/15/2017 Pt Lvn2994 Mod intensity - 2.0-3.0 10/15/2017 Pt Dgr8589 Hi intensity - 3.0-4.0 10/15/2017 Pt Gau5545 PT 25.9 seconds 10/01/2017 Pt Hfg3170 INR 2.4 10/01/2017 Pt Sjh6720 Low Intensity - 1.5-2.0 10/01/2017 Pt Eeo6660 Mod intensity - 2.0-3.0 10/01/2017 Pt Mhc2635 Hi intensity - 3.0-4.0 10/01/2017 Pt Aur8649 PT 20.6 seconds 09/24/2017 Pt Xkg9820 INR 1.8 09/24/2017 Pt Syk6527 Low Intensity - 1.5-2.0 09/24/2017 Pt Kvd0160 Mod intensity - 2.0-3.0 09/24/2017 Pt Upr3911 Hi intensity - 3.0-4.0 09/24/2017 Pt Ahh6591 PT 21.0 seconds 09/15/2017 Pt Jaq8611 INR 1.8 09/15/2017 Pt Gab4993 Low Intensity - 1.5-2.0 09/15/2017 Pt Yez1527 Mod intensity - 2.0-3.0 09/15/2017 Pt Ssq6136 Hi intensity - 3.0-4.0 09/15/2017 Pt Ofy2540 PT 19.0 seconds 09/03/2017 Pt Btv6366 INR 1.6 09/03/2017 Pt Fva1420 Low Intensity - 1.5-2.0 09/03/2017 Pt Kzm4658 Mod intensity - 2.0-3.0 09/03/2017 Pt Elv0151 Hi intensity - 3.0-4.0 09/03/2017 Pt Jny2096 PT 17.6 seconds 08/23/2017 Pt Rgk5201 INR 1.5 08/23/2017 Pt Uig7285 Low Intensity - 1.5-2.0 08/23/2017 Pt Gog0322 Mod intensity - 2.0-3.0 08/23/2017 Pt Ikh0143 Hi intensity - 3.0-4.0 08/23/2017 Pt Xlv8802 PT 12.7 seconds 08/20/2017 Pt Dwe0962 INR 1.0 08/20/2017 Pt Ekp9041 Low Intensity - 1.5-2.0 08/20/2017 Pt Cvx4959 Mod intensity - 2.0-3.0 08/20/2017 Pt Zzs1154 Hi intensity - 3.0-4.0 08/20/2017 Pt Anl6542 PT 12.9 seconds 08/17/2017 Pt Gmz1421 INR 1.0 08/17/2017 Pt Wmy3775 Low Intensity - 1.5-2.0 08/17/2017 Pt Gbt1952 Mod intensity - 2.0-3.0 08/17/2017 Pt Hhy7587 Hi intensity - 3.0-4.0 08/17/2017 Pt Smu5262 PT 18.5 seconds 08/10/2017 Pt Qws1417 INR 1.6 08/10/2017 Pt Gxw1197 Low Intensity - 1.5-2.0 08/10/2017 Pt Axy7027 Mod intensity - 2.0-3.0 08/10/2017 Pt Ucn5019 Hi intensity - 3.0-4.0 08/10/2017 Tsh Ord6 [...] 29.3 pg 05/27/2017 Cbc With Differential Ord2 [place]% 8.1 % 05/27/2017 Cbc With Differential Ord2 [...] 1.11 K/ul 05/27/2017 Cbc With Differential Ord2 [place] ABS# 0.6 K/ul 05/27/2017 Cbc With Differential Ord2 Eos ABS# 0.2 K/ul 05/27/2017 Cbc With Differential Ord2 Baso ABS# 0.1 K/ul 05/27/2017 Pt Fms5769 PT 28.2 seconds 05/27/2017 Pt Kks4136 INR 2.6 05/27/2017 Pt Lfd0708 Low Intensity - 1.5-2.0 05/27/2017 Pt Zww5453 Mod intensity - 2.0-3.0 05/27/2017 Pt Lny3022 Hi intensity - 3.0-4.0 05/27/2017 Lipid Ord30 CHOL 167 mg/dL 05/27/2017 Lipid Ord30 HDL 49.0 mg/dl 05/27/2017 Lipid Ord30 TRIG 347 mg/dL 05/27/2017 Lipid Ord30 LDL 49 mg/dL 05/27/2017 Lipid Ord30 C/HDL 3.4 Ratio 05/27/2017 Magnesium Ord90 Mag 1.4 mg/dL 05/27/2017 %Hba1C Eet730 % HbA1c 87466-1 5.9 % 05/27/2017 %Hba1C Cef119 Gluc Ave 123 mg/dL 05/27/2017 Comp Metabolic Kek208 NA 138 mEq/L 05/27/2017 Comp Metabolic Ymn093 K 4.1 mEq/L 05/27/2017 Comp Metabolic Rlm550 CL 101 mEq/L 05/27/2017 Comp Metabolic Aot352 CO2 31.0 mEq/L 05/27/2017 Comp Metabolic Tsk058 AN ION GAP 10 05/27/2017 Comp Metabolic Rbf432 GL UCOSE 117 mg/dL 05/27/2017 Comp Metabolic Sfr038 Cr eat 0.9 mg/dL 05/27/2017 Comp Metabolic Gbi071 eG FR 62 ml/min/1.73m2 05/27 Comp Metabolic Lqs028 BUN 25 mg/dL 05/27/2017 Comp Metabolic Kxb879 B/ C Ratio 26.6 Ratio 05/27/2017 Comp Metabolic Qax224 CA LCIUM 9.5 mg/dL 05/27/2017 Comp Metabolic Rmm033 AL K PHOS 73 U/L 05/27/2017 Comp Metabolic Cuy545 T(SGOT) 18 U/L 05/27/2017 Comp Metabolic Kqu482 AL T(SGPT) 12 U/L 05/27/2017 Comp Metabolic Weo659 BI LI T 0.5 mg/dL 05/27/2017 Comp Metabolic Ugz656 AL BUMIN 4.1 g/dL 05/27/2017 Comp Metabolic Rom697 TP RO 7.1 g/dL 05/27/2017 Comp Metabolic Gts288 GL OB 3.0 g/dL 05/27/2017 Comp Metabolic Ltc081 A/ G Ratio 1.3 Ratio 05/27/2017 Comp Metabolic Oxq330 Os mo 281 mOsmo 05/27/2017 Free T4 Blu102 FREE T4 0.91 ng/dL 05/27/2017 Pt Cbo6593 PT 29.2 seconds 04/16/2017 Pt Hcz7930 INR 2.7 04/16/2017 Pt Wln0662 Low Intensity - 1.5-2.0 04/16/2017 Pt Ina4835 Mod intensity - 2.0-3.0 04/16/2017 Pt Qno6650 Hi intensity - 3.0-4.0 04/16/2017 Pt Xbh8214 PT 30.7 seconds 03/31/2017 Pt Rbg3387 INR 2.9 03/31/2017 Pt Bxf0095 Low Intensity - 1.5-2.0 03/31/2017 Pt Fju9551 Mod intensity - 2.0-3.0 03/31/2017 Pt Rcf8556 Hi intensity - 3.0-4.0 03/31/2017 Pt Pob6433 PT 21.3 seconds 03/26/2017 Pt Dlk3433 INR 1.9 03/26/2017 Pt Yjo3590 Low Intensity - 1.5-2.0 03/26/2017 Pt Zht6882 Mod intensity - 2.0-3.0 03/26/2017 Pt Hyc1385 Hi intensity - 3.0-4.0 03/26/2017 Pt Drq9004 PT 19.8 seconds 03/22/2017 Pt Ecb8100 INR 1.7 03/22/2017 Pt Gtf3597 Low Intensity - 1.5-2.0 03/22/2017 Pt Wel9339 Mod intensity - 2.0-3.0 03/22/2017 Pt Tef2534 Hi intensity - 3.0-4.0 03/22/2017 Pt Vnk7601 PT 15.6 seconds 03/19/2017 Pt Qmb7670 INR 1.3 03/19/2017 Pt Tav4581 Low Intensity - 1.5-2.0 03/19/2017 Pt Kyh9552 Mod intensity - 2.0-3.0 03/19/2017 Pt Euz2688 Hi intensity - 3.0-4.0 03/19/2017 Pt Mdy4664 PT 13.7 seconds 03/15/2017 Pt Seg1232 INR 1.1 03/15/2017 Pt Eyc0296 Low Intensity - 1.5-2.0 03/15/2017 Pt Iog4374 Mod intensity - 2.0-3.0 03/15/2017 Pt Yyj6960 Hi intensity - 3.0-4.0 03/15/2017 Pt Dxi3430 PT 25.8 seconds 01/28/2017 Pt Mxj4888 INR 2.4 01/28/2017 Pt Dzj8419 Low Intensity - 1.5-2.0 01/28/2017 Pt Jcz6730 Mod intensity - 2.0-3.0 01/28/2017 Pt Oxj6226 Hi intensity - 3.0-4.0 01/28/2017 %Hba1C Anl264 % HbA1c 47800-8 6.4 % 10/23/2016 %Hba1C Yvk393 Gluc Ave 137 mg/dL 10/23/2016 Comp Metabolic Ttt873 NA 138 mEq/L 10/23/2016 Comp Metabolic Idm617 K 3.4 mEq/L 10/23/2016 Comp Metabolic Avl505 CL 100 mEq/L 10/23/2016 Comp Metabolic Twi130 CO2 30.0 mEq/L 10/23/2016 Comp Metabolic Rsm952 AN ION GAP 11 10/23/2016 Comp Metabolic Ebc743 GL UCOSE 139 mg/dL 10/23/2016 Comp Metabolic Dqc714 Cr eat 0.9 mg/dL 10/23/2016 Comp Metabolic Vgk441 eG FR 62 ml/min/1.73m2 10/23 Comp Metabolic Dwn947 BUN 22 mg/dL 10/23/2016 Comp Metabolic Eop675 B/ C Ratio 23.4 Ratio 10/23/2016 Comp Metabolic Bjx041 CA LCIUM 8.7 mg/dL 10/23/2016 Comp Metabolic Lpj533 AL K PHOS 66 U/L 10/23/2016 Comp Metabolic Mur387 T(SGOT) 20 U/L 10/23/2016 Comp Metabolic Qlj739 AL T(SGPT) 10 U/L 10/23/2016 Comp Metabolic Kca814 BI LI T 0.5 mg/dL 10/23/2016 Comp Metabolic Eyf882 AL BUMIN 3.5 g/dL 10/23/2016 Comp Metabolic Dwj987 TP RO 6.3 g/dL 10/23/2016 Comp Metabolic Hei061 GL OB 2.8 g/dL 10/23/2016 Comp Metabolic Rxh927 A/ G Ratio 1.3 Ratio 10/23/2016 Comp Metabolic Fwo202 Os mo 281 mOsmo 10/23/2016 Pt Jdb0833 PT 26.8 seconds 10/23/2016 Pt Ell2577 INR 2.7 10/23/2016 Pt Lcv0730 Low Intensity - 1.5-2.0 10/23/2016 Pt Cmj0680 Mod intensity - 2.0-3.0 10/23/2016 Pt Edt9937 Hi intensity - 3.0-4.0 10/23/2016 Pt Gzj3091 PT 28.3 seconds 09/25/2016 Pt Yem5419 INR 2.8 09/25/2016 Pt Das9049 Low Intensity - 1.5-2.0 09/25/2016 Pt Rfa0180 Mod intensity - 2.0-3.0 09/25/2016 Pt Hjs8258 Hi intensity - 3.0-4.0 09/25/2016 Metabolic Ord15 [...] Metabolic Ord15 CALCIUM 8.8 mg/dL 09/25/2016 Pt Wvg8734 PT 30.6 seconds 09/11/2016 Pt Cor8026 INR 3.2 09/11/2016 Pt Qld9155 Low Intensity - 1.5-2.0 09/11/2016 Pt Xlk0892 Mod intensity - 2.0-3.0 09/11/2016 Pt Ccl8875 Hi intensity - 3.0-4.0 09/11/2016 Comp Metabolic Der855 NA 138 mEq/L 09/11/2016 Comp Metabolic Gbu656 K 4.4 mEq/L 09/11/2016 Comp Metabolic Akm368 CL 103 mEq/L 09/11/2016 Comp Metabolic Jcm495 CO2 31.0 mEq/L 09/11/2016 Comp Metabolic Kaq440 AN ION GAP 8 09/11/2016 Comp Metabolic Zbr806 GL UCOSE 146 mg/dL 09/11/2016 Comp Metabolic Opu246 Cr eat 1.0 mg/dL 09/11/2016 Comp Metabolic Gpk307 eG FR 60 ml/min/1.73m2 09/11 Comp Metabolic Ctx114 BUN 16 mg/dL 09/11/2016 Comp Metabolic Rau227 B/ C Ratio 16.5 Ratio 09/11/2016 Comp Metabolic Bxz442 CA LCIUM 8.7 mg/dL 09/11/2016 Comp Metabolic Ubn626 AL K PHOS 52 U/L 09/11/2016 Comp Metabolic Oda782 T(SGOT) 19 U/L 09/11/2016 Comp Metabolic Mbh962 AL T(SGPT) 11 U/L 09/11/2016 Comp Metabolic Vnq713 BI LI T 0.7 mg/dL 09/11/2016 Comp Metabolic Ant679 AL BUMIN 3.3 g/dL 09/11/2016 Comp Metabolic Zkx702 TP RO 5.8 g/dL 09/11/2016 Comp Metabolic Stx129 GL OB 2.5 g/dL 09/11/2016 Comp Metabolic Aty362 A/ G Ratio 1.3 Ratio 09/11/2016 Comp Metabolic Cdw878 Os mo 280 mOsmo 09/11/2016 C-Reactive Protein Qnt Crqnt CRP 0.1 mg/dl 08/21/2016 Comp Metabolic Bud908 NA 139 mEq/L 08/21/2016 Comp Metabolic Xai929 K 4.1 mEq/L 08/21/2016 Comp Metabolic Rce605 CL 102 mEq/L 08/21/2016 Comp Metabolic Rvv277 CO2 30.0 mEq/L 08/21/2016 Comp Metabolic Nzf725 AN ION GAP 11 08/21/2016 Comp Metabolic Bah872 GL UCOSE 148 mg/dL 08/21/2016 Comp Metabolic Jsg712 Cr eat 1.0 mg/dL 08/21/2016 Comp Metabolic Ron252 eG FR 55 ml/min/1.73m2 08/21 Comp Metabolic Lgv770 BUN 21 mg/dL 08/21/2016 Comp Metabolic Iwi430 B/ C Ratio 20.2 Ratio 08/21/2016 Comp Metabolic Rtd824 CA LCIUM 9.4 mg/dL 08/21/2016 Comp Metabolic Fqg474 AL K PHOS 63 U/L 08/21/2016 Comp Metabolic Gie747 T(SGOT) 23 U/L 08/21/2016 Comp Metabolic Yer189 AL T(SGPT) 16 U/L 08/21/2016 Comp Metabolic Zle561 BI LI T 0.6 mg/dL 08/21/2016 Comp Metabolic Fvn494 AL BUMIN 3.9 g/dL 08/21/2016 Comp Metabolic Syi397 TP RO 6.8 g/dL 08/21/2016 Comp Metabolic Bwb260 GL OB 2.9 g/dL 08/21/2016 Comp Metabolic Cki380 A/ G Ratio 1.4 Ratio 08/21/2016 Comp Metabolic Cid719 Os mo 283 mOsmo 08/21/2016 Sed Rate Ord21 ESR 16 mm/hr 08/21/2016 Pt Kyr8127 PT 27.2 seconds 08/21/2016 Pt Iiz1624 INR 2.7 08/21/2016 Pt Jar9482 Low Intensity - 1.5-2.0 08/21/2016 Pt Hqa6207 Mod intensity - 2.0-3.0 08/21/2016 Pt Nlw0530 Hi intensity - 3.0-4.0 08/21/2016 Magnesium Ord90 Mag 1.9 mg/dL 08/21/2016 Pt Epx0365 PT 25.9 seconds 06/17/2016 Pt Gac1846 INR 2.5 06/17/2016 Pt Ymj9988 Low Intensity - 1.5-2.0 06/17/2016 Pt Uph2726 Mod intensity - 2.0-3.0 06/17/2016 Pt Xsk9447 Hi intensity - 3.0-4.0 06/17/2016 Tsh Ord6 hTSH II 2.13 uIU/mL 06/08/2016 Free T4 Ozy747 FREE T4 0.79 ng/dL 06/08/2016 Cbc With [...] 26.8 pg 06/08/2016 Cbc With Differential Ord2 [place]% 12.0 % 06/08/2016 Cbc With Differential Ord2 [...] 1.40 K/ul 06/08/2016 Cbc With Differential Ord2 [place] ABS# 0.7 K/ul 06/08/2016 Cbc With Differential Ord2 Eos ABS# 0.3 K/ul 06/08/2016 Cbc With Differential Ord2 Baso ABS# 0.1 K/ul 06/08/2016 %Hba1C Uei515 % HbA1c 21385-0 6.2 % 06/08/2016 %Hba1C Nam195 Gluc Ave 131 mg/dL 06/08/2016 Comp Metabolic Pht788 NA 138 mEq/L 06/08/2016 Comp Metabolic Ktb260 K 3.9 mEq/L 06/08/2016 Comp Metabolic Cpu448 CL 105 mEq/L 06/08/2016 Comp Metabolic Lnc739 CO2 27.0 mEq/L 06/08/2016 Comp Metabolic Czn166 AN ION GAP 10 06/08/2016 Comp Metabolic Ecc698 GL UCOSE 127 mg/dL 06/08/2016 Comp Metabolic Whe116 Cr eat 1.0 mg/dL 06/08/2016 Comp Metabolic Jug275 eG FR 59 ml/min/1.73m2 06/08 Comp Metabolic Fpy901 BUN 19 mg/dL 06/08/2016 Comp Metabolic Oup853 B/ C Ratio 19.4 Ratio 06/08/2016 Comp Metabolic Dgn895 CA LCIUM 9.2 mg/dL 06/08/2016 Comp Metabolic Lix490 AL K PHOS 77 U/L 06/08/2016 Comp Metabolic Jtp102 T(SGOT) 19 U/L 06/08/2016 Comp Metabolic Gxf366 AL T(SGPT) 13 U/L 06/08/2016 Comp Metabolic Hwt773 BI LI T 0.5 mg/dL 06/08/2016 Comp Metabolic Odg730 AL BUMIN 3.8 g/dL 06/08/2016 Comp Metabolic Rkz767 TP RO 6.6 g/dL 06/08/2016 Comp Metabolic Ofb283 GL OB 2.8 g/dL 06/08/2016 Comp Metabolic Ovd379 A/ G Ratio 1.4 Ratio 06/08/2016 Comp Metabolic Jwf573 Os mo 280 mOsmo 06/08/2016 Pt Ivx5087 PT 36.1 seconds 06/08/2016 Pt Uvs1942 INR 3.9 06/08/2016 Pt Ysl8462 Low Intensity - 1.5-2.0 06/08/2016 Pt Qph5050 Mod intensity - 2.0-3.0 06/08/2016 Pt Ksc6026 Hi intensity - 3.0-4.0 06/08/2016 Lipid Ord30 CHOL 149 mg/dL 06/08/2016 Lipid Ord30 HDL 46.0 mg/dl 06/08/2016 Lipid Ord30 TRIG 279 mg/dL 06/08/2016 Lipid Ord30 LDL 47 mg/dL 06/08/2016 Lipid Ord30 C/HDL 3.2 Ratio 06/08/2016 Pt Oew9100 PT 30.9 seconds 02/12/2016 Pt Qeo7946 INR 3.2 02/12/2016 Pt Unk6536 Low Intensity - 1.5-2.0 02/12/2016 Pt Jlh1722 Mod intensity - 2.0-3.0 02/12/2016 Pt Pay2291 Hi intensity - 3.0-4.0 02/12/2016 Free T4 Lld945 FREE T4 1.24 ng/dL 09/27/2015 %Hba1C Wpf751 % HbA1c 42053-6 6.4 % 09/27/2015 %Hba1C Ska172 Gluc Ave 137 mg/dL 09/27/2015 Tsh Ord6 hTSH II 0.37 uIU/mL 09/27/2015 Pt Vda8410 PT 26.2 seconds 09/27/2015 Pt Ida0147 INR 2.5 09/27/2015 Pt Unk8217 Low Intensity - 1.5-2.0 09/27/2015 Pt Lfq9154 Mod intensity - 2.0-3.0 09/27/2015 Pt Tcu6952 Hi intensity - 3.0-4.0 09/27/2015 Pt Flh9160 PT 27.6 seconds 2015 Pt Apk7041 INR 2.7 2015 Pt Hel3573 Low Intensity - 1.5-2.0 2015 Pt Crl9628 Mod intensity - 2.0-3.0 2015 Pt Das8952 Hi intensity - 3.0-4.0 2015 %Hba1C Cby972 % HbA1c 03557-4 6.1 % 06/11/2015 %Hba1C Ujw011 Gluc Ave 128 mg/dL 06/11/2015 Cbc With [...] Ord2 RDW 15.8 % 06/10/2015 Comp Metabolic Ntu902 NA 139 mEq/L 06/10/2015 Comp Metabolic Svf528 K 4.1 mEq/L 06/10/2015 Comp Metabolic Wzh092 CL 105 mEq/L 06/10/2015 Comp Metabolic Ceq780 CO2 27.0 mEq/L 06/10/2015 Comp Metabolic Khw232 AN ION GAP 11 06/10/2015 Comp Metabolic Kpw911 GL UCOSE 127 mg/dL 06/10/2015 Comp Metabolic Ocd091 Cr eat 1.0 mg/dL 06/10/2015 Comp Metabolic Wub248 eG FR 59 ml/min/1.73m2 06/10 Comp Metabolic Obh218 BUN 21 mg/dL 06/10/2015 Comp Metabolic Tmt991 B/ C Ratio 21.2 Ratio 06/10/2015 Comp Metabolic Xst410 CA LCIUM 9.2 mg/dL 06/10/2015 Comp Metabolic Mha022 AL K PHOS 87 U/L 06/10/2015 Comp Metabolic Guc274 T(SGOT) 20 U/L 06/10/2015 Comp Metabolic Mpp732 AL T(SGPT) 17 U/L 06/10/2015 Comp Metabolic Xbf996 BI LI T 0.4 mg/dL 06/10/2015 Comp Metabolic Bhx779 AL BUMIN 4.1 g/dL 06/10/2015 Comp Metabolic Vwl469 TP RO 7.2 g/dL 06/10/2015 Comp Metabolic Lck057 GL OB 3.1 g/dL 06/10/2015 Comp Metabolic Qlw711 A/ G Ratio 1.3 Ratio 06/10/2015 Comp Metabolic Gup621 Os mo 282 mOsmo 06/10/2015 Tsh Ord6 hTSH II 0.86 uIU/mL 06/10/2015 Lipid Ord30 CHOL 161 mg/dL 06/10/2015 Lipid Ord30 HDL 49.0 mg/dl 06/10/2015 Lipid Ord30 TRIG 208 mg/dL 06/10/2015 Lipid Ord30 LDL 70 mg/dL 06/10/2015 Lipid Ord30 C/HDL 3.3 Ratio 06/10/2015 Pt Wen1020 PT 25.0 seconds 04/09/2015 Pt Dck4978 INR 2.4 04/09/2015 Pt Dhf5346 Low Intensity - 1.5-2.0 04/09/2015 Pt Soz7542 Mod intensity - 2.0-3.0 04/09/2015 Pt Iwu8135 Hi intensity - 3.0-4.0 04/09/2015 Free T4 Xln775 FREE T4 1.05 ng/dL 01/22/2015 Pt Tkd8698 PT 27.2 seconds 01/22/2015 Pt Lpp8136 INR 2.6 01/22/2015 Pt Ccx2604 Low Intensity - 1.5-2.0 01/22/2015 Pt Fod5839 Mod intensity - 2.0-3.0 01/22/2015 Pt Hgl3497 Hi intensity - 3.0-4.0 01/22/2015 Cbc With [...] Differential Ord2 RDW 15.2 % 01/22/2015 B12 Kba109 B12 402.00 pg/ml 01/22/2015 Tsh Ord6 hTSH II 0.65 uIU/mL 01/22/2015 Lipid Ord30 CHOL 166 mg/dL 01/22/2015 Lipid Ord30 HDL 48.0 mg/dl 01/22/2015 Lipid Ord30 TRIG 264 mg/dL 01/22/2015 Lipid Ord30 LDL 65 mg/dL 01/22/2015 Lipid Ord30 C/HDL 3.5 Ratio 01/22/2015 Comp Metabolic Fsk861 NA 138 mEq/L 01/22/2015 Comp Metabolic Tzn990 K 4.1 mEq/L 01/22/2015 Comp Metabolic Tfv512 CL 104 mEq/L 01/22/2015 Comp Metabolic Nys946 CO2 29.0 mEq/L 01/22/2015 Comp Metabolic Cld672 AN ION GAP 9 01/22/2015 Comp Metabolic Gys306 GL UCOSE 106 mg/dL 01/22/2015 Comp Metabolic Vak993 Cr eat 0.9 mg/dL 01/22/2015 Comp Metabolic Kuh815 eG FR 63 ml/min/1.73m2 01/22 Comp Metabolic Kmd757 BUN 21 mg/dL 01/22/2015 Comp Metabolic Udq489 B/ C Ratio 22.3 Ratio 01/22/2015 Comp Metabolic Wcr317 CA LCIUM 9.4 mg/dL 01/22/2015 Comp Metabolic Asa281 AL K PHOS 83 U/L 01/22/2015 Comp Metabolic Egf164 T(SGOT) 23 U/L 01/22/2015 Comp Metabolic Zks862 AL T(SGPT) 18 U/L 01/22/2015 Comp Metabolic Tjz562 BI LI T 0.8 mg/dL 01/22/2015 Comp Metabolic Fmd458 AL BUMIN 4.2 g/dL 01/22/2015 Comp Metabolic Npd904 TP RO 7.3 g/dL 01/22/2015 Comp Metabolic Npf429 GL OB 3.1 g/dL 01/22/2015 Comp Metabolic Dxk313 A/ G Ratio 1.4 Ratio 01/22/2015 Comp Metabolic Ycx035 Os mo 279 mOsmo 01/22/2015 Review of [...] Procedure Codes Date THER/PROPH/DIAG INJ SC/IM CPT-4: 55573 09/02/2018 TRIAMCINOLONE ACET I [place] NOS CPT-4: J3301 09/02/2018 URINALYSIS NONAUTO W /O SCOPE CPT-4: 51242 03/05/2017 Vital Signs Date Vital 09/02/2018 Blood Pressure 1: 128/72 Code: 8480-6 BMI: 38.2 Code: 23188-0 Heart Rate 1: 80 bpm Height: 5'1" SpO2: 98% Weight: 202 lbs 04/14/2018 Blood Pressure 1: 116/78 Code: 8480-6 BMI: 41.6 Code: 14067-1 Heart Rate 1: 72 bpm Height: 5'1" SpO2: 98% Weight: 220 lbs 01/18/2018 Blood Pressure 1: 132/74 Code: 8480-6 BMI: 43.5 Code: 11140-3 Heart Rate 1: 70 bpm Height: 5'1" SpO2: 97% Weight: 230 lbs 01/04/2018 Blood Pressure 1: 134/76 Code: 8480-6 BMI: 42.7 Code: 86643-0 Heart Rate 1: 83 bpm Height: 5'1" SpO2: 98% Weight: 226 lbs 09/23/2017 Blood Pressure 1: 124/76 Code: 8480-6 BMI: 42.3 Code: 59102-9 Heart Rate 1: 94 bpm Height: 5'1" SpO2: 96% Weight: 224 lbs 05/27/2017 Blood Pressure 1: 146/78 Code: 8480-6 BMI: 41.4 Code: 52851-7 Heart Rate 1: 85 bpm Height: 5'1" SpO2: 98% Weight: 219 lbs 02/24/2017 Blood Pressure 1: 138/66 Code: 8480-6 BMI: 41.4 Code: 43354-3 Heart Rate 1: 78 bpm Height: 5'1" SpO2: 97% Weight: 219 lbs 11/02/2016 Blood Pressure 1: 144/72 Code: 8480-6 BMI: 46.1 Code: 75432-5 Heart Rate 1: 78 bpm Height: 5'1" SpO2: 98% Weight: 244 lbs 09/30/2016 Blood Pressure 1: 130/76 Code: 8480-6 BMI: 45.0 Code: 14057-0 Heart Rate 1: 86 bpm Height: 5'1" SpO2: 98% Weight: 238 lbs 09/10/2016 Blood Pressure 1: 136/68 Code: 8480-6 BMI: 46.3 Code: 60775-2 Heart Rate 1: 83 bpm Height: 5'1" SpO2: 98% Weight: 245 lbs 08/20/2016 Blood Pressure 1: 142/78 Code: 8480-6 BMI: 45.3 Code: 30310-1 Heart Rate 1: 84 bpm Height: 5'1" SpO2: 99% Weight: 240 lbs 06/08/2016 Blood Pressure 1: 134/76 Code: 8480-6 BMI: 44.2 Code: 67651-4 Heart Rate 1: 86 bpm Height: 5'1" SpO2: 96% Weight: 234 lbs 04/02/2016 Blood Pressure 1: 142/70 Code: 8480-6 BMI: 44.6 Code: 46615-0 Heart Rate 1: 78 bpm Height: 5'1" SpO2: 97% Weight: 236 lbs 01/14/2016 Blood Pressure 1: 146/72 Code: 8480-6 BMI: 44.2 Code: 25138-9 Heart Rate 1: 86 bpm Height: 5'1" SpO2: 96% Weight: 234 lbs 10/02/2015 Blood Pressure 1: 158/76 Code: 8480-6 BMI: 44.2 Code: 99463-6 Heart Rate 1: 67 bpm Height: 5'1" SpO2: 97% Weight: 234 lbs 07/15/2015 Blood Pressure 1: 200/90 Code: 8480-6 Blood Pressure 1: 148/78 Code: 8480-6 BMI: 44.0 Code: 71767-6 Heart Rate 1: 89 bpm Height: 5'1" SpO2: 97% Weight: 233 lbs 06/10/2015 Blood Pressure 1: 140/82 Code: 8480-6 BMI: 44.0 Code: 40442-6 Heart Rate 1: 78 bpm Height: 5'1" [...] wearing crocs and there was a new bulgarian on the floor: her foot didn't move [...] Encounters Encounter Performer Loca tion Codes Date 47060 EST. PATIENT, LEVEL IV Diagnosis: Other acute sinusitis[ICD10: J01.80] Diagnosis: Other allergic rhinitis[ICD10: J30.89] [facility] CPT-4: 45407 09/02/2018 [id number] 00342 EST. P ATIENT, LEVEL IV Diagnosis: Essential (primary) hypertension[ICD10: I10] Diagnosis: Hypothyroidism, unspecified[ICD10: E03.9] Diagnosis: Impaired fasting glucose[ICD10: R73.01] Diagnosis: detention (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[ICD10: Z79.01] Edna Almanza MD, [facility] CPT-4: 83771 04/14/2018 ([id number]) 14096 EST. P ATIENT, LEVEL III Diagnosis: Localized edema[ICD10: R60.0] Diagnosis: Gastro-esophageal reflux disease without esophagitis[ICD10: K21.9] Edna Almanza MD, [facility] CPT-4: 67863 01/18/2018 ([id number]) 02714 EST. P ATIENT, LEVEL IV Diagnosis: Gastro-esophageal reflux disease without esophagitis[ICD10: K21.9] Diagnosis: Localized edema[ICD10: R60.0] Diagnosis: Essential (primary) hypertension[ICD10: I10] Diagnosis: Hypothyroidism, unspecified[ICD10: E03.9] Diagnosis: Impaired fasting glucose[ICD10: R73.01] Edna Almanza MD, [facility] CPT-4: 03204 01/04/2018 ([id number]) 15115 EST. P ATIENT, LEVEL IV Diagnosis: Essential (primary) hypertension[ICD10: I10] Diagnosis: detention (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[ICD10: Z79.01] Diagnosis: Incisional hernia without obstruction or gangrene[ICD10: K43.2] Diagnosis: Right lower quadrant pain[ICD10: R10.31] Sarai Almanza MD, [facility] CPT-4: 51910 09/23/2017 ([id number]) 34425 EST. P ATIENT, LEVEL IV Diagnosis: Essential (primary) hypertension[ICD10: I10] Diagnosis: Mixed hyperlipidemia[ICD10: E78.2] Diagnosis: Hypothyroidism, unspecified[ICD10: E03.9] Diagnosis: Impaired fasting glucose[ICD10: R73.01] Diagnosis: detention (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[ICD10: Z79.01] Edna Almanza MD, [facility] CPT-4: 20870 05/27/2017 76261 EST. PATIENT, LEVEL III Diagnosis: Pain in right hip[ICD10: M25.551] Nata Almanza MD, [facility] CPT-4: 79126 02/24/2017 ([id number]) 88960 EST. P ATIENT, LEVEL IV Diagnosis: Essential (primary) hypertension[ICD10: I10] Diagnosis: Localized edema[ICD10: R60.0] Diagnosis: Pain in right hip[ICD10: M25.551] Sarai Almanza MD, [facility] CPT-4: 97145 11/02/2016 ([id number]) 75109 EST. P ATIENT, LEVEL IV Diagnosis: Essential (primary) hypertension[ICD10: I10] Diagnosis: Localized edema[ICD10: R60.0] Sarai Almanza MD, [facility] CPT-4: 09591 09/30/2016 05710 EST. PATIENT, LEVEL IV Diagnosis: Localized edema[ICD10: R60.0] Diagnosis: Pain in joints of left hand[ICD10: M25.542] Diagnosis: Pain in joints of right hand[ICD10: M25.541] Nata Almanza MD, [facility] CPT-4: 70589 09/10/2016 97611 EST. PATIENT, LEVEL IV Diagnosis: Localized edema[ICD10: R60.0] Diagnosis: Pain in joints of left hand[ICD10: M25.542] Diagnosis: Pain in joints of right hand[ICD10: M25.541] Diagnosis: Other fatigue[ICD10: R53.83] Nata Almanza MD, [facility] CPT-4: 14516 08/20/2016 93219 EST. PATIENT, LEVEL IV Diagnosis: Essential (primary) hypertension[ICD10: I10] Diagnosis: Other shelter (current) drug therapy[ICD10: Z79.899] Diagnosis: Tinnitus, bilateral[ICD10: H93.13] Nata Almanza MD, [facility] CPT-4: 07780 06/08/2016 38579 EST. PATIENT, LEVEL IV Diagnosis: Other allergic rhinitis[ICD10: J30.89] Diagnosis: Acute laryngopharyngitis[ICD10: J06.0] Nata Almanza MD, [facility] CPT-4: 19305 04/02/2016 07843 EST. PATIENT, LEVEL IV Diagnosis: Left upper quadrant pain[ICD10: R10.12] [facility] CPT-4: 78079 01/14/2016 02205 EST. PATIENT, LEVEL IV Diagnosis: Pain in left shoulder[ICD10: M25.512] Diagnosis: Body mass index (BMI) 40.0-44.9, adult[ICD10: Z68.41] [facility] CPT-4: 32376 10/02/2015 71218 EST. 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: Other shelter (current) drug therapy[ICD10: Z79.899] [facility] CPT-4: 78240 06/10/2015 ([id number]) OFFICE [facility] LEVEL 4 Diagnosis: ESSENTIAL HYPERTENSION[ICD9: 401.9] Diagnosis: HYPOTHYROIDISM[ICD9: 244.9] Diagnosis: ENCNTR LONG-RX USE NEC[ICD9: V58.69] Diagnosis: HYPERLIPIDEMIA[ICD9: 272.4] Diagnosis: Vitamin B12 deficiency[ICD9: 266.2] Diagnosis: Status post gastric surgery[ICD9: V45.89] Diagnosis: Snoring[ICD9: 786.09] [facility] CPT-4: 83248 01/22/2015 Plan of Care Planned Activity Notes [...] Appointment: Nata Hsu WPtel: [facility] (15 min) Moderate 09/02/2018 Patient Education: [...] Hgb A1C 04/14/2018 Appointment: Edna Douglas WPtel: [facility]3 [address] (15 min) Moderate 04/14/2018 Patient Education: Patient [...] to further attempt to reduce peripheral edema. NMUV-ajqhtwxi-hdqjnutc prilosec BID and carafate QID -discussed low spice, low acidic diet 01/18/2018 Appointment: Edna Douglas WPtel: [facility]1 [phone] (15 min) Moderate 01/18/2018 Patient Education: [...] of control. 01/04/2018 Appointment: Edna Douglas WPtel: [address] [place], [place] [phone] (30 min) Complex 01/04/2018 Patient Education: Patient Medication Summary Completed 01/04/2018 Care Plan: SCREENINGMAMMOGRAPHYDIGITAL LOINC : 45109-3 Pending 01/04/2018 Visit Plan: Abdominal hernia - not able to be taken to surgery by local providers and pt has been seen at [facility] and that surgeon felt like Kat would be better served by Dr. Betancur at [facility] [address] recommended a referral to dr. cecelia betancur [...] home. 09/23/2017 Appointment: [phone] (15 min) Moderate 09/23/2017 Patient Education: Patient [...] medications. 05/27/2017 [phone] [place] (30 min) Complex 05/27/2017 Patient [...] 02/24/2017 App[facility]ment: [phone] [facility] (30 min) Complex 02/24/2017 Patient Education: [...] Chaney. 11/02/2016 Appointment: [phone] (15 min) Moderate 11/02/2016 Patient Education: Patient [...] edema. 09/30/2016 Appointment: Sarai Almanza WPtel: [phone] [facility] (15 min) Moderate 09/30/2016 Patient Education: [...] peripheral edema. 09/10/2016 Appointment: Nata Hsu WPtel: [phone] [facility] (30 min) Complex 09/10/2016 Patient [...] peripheral edema. 08/20/2016 Appointment: Nata Hsu WPtel: [phone] [facility] (30 min) Complex 08/20/2016 Patient Education: Patient Medication Summary Completed 08/20/2016 Referral: Otf Lee [id number] Referral Initiated 07/02/2016 Visit Plan: Chronic Anticoagulant [...] 06/08/2016 Care Plan: Referral Order SNOMED-CT : [id number] Pending 06/08/2016 Visit Plan: URI - Pt [...] allergy spray. 04/02/2016 Appointment: [facility]ata Hsu [facility]el[facility] [phone] [facility] (30 min) Complex 04/02/2016 Patient Education: [...] acute pain 01/14/2016 Appointment: Edna Douglas [facility]el[phone] [phone] [place] (30 min) Complex 01/14/2016 Patient Education: Patient Medication Summary Completed 01/14/2016 Patient Education: Obesity Completed 01/14/2016 Care Plan: BMI Above normal followup DAVID F-MGMT EDUC & TRAIN 1 PT Pending 10/24/2015 Care Plan: X-RAY EXAM OF SHOULDER LOINC : 04156-0 Pending 10/24/2015 Visit Plan: Left shoulder pain [...] Appointment: Edna Douglas WPtel: [phone] (15 min) Moderate 10/02/2015 Patient Education: [...] Appointment: Sarai Almanza WPtel: [facility]6 [facility] (15 min) Moderate 04/22/2015 Visit Plan: [...] have surgical fixation - planning occurring at [facility]. Snoring - Sleep apnea [...] medications. 01/22/2015 Appointment: Sarai Almanza WPtel: [phone] [facility] [place] (S) New Patient 01/22/2015 Patient Education: Patient Medication Summary Completed 01/22/2015 Patient Education: Hypertension Completed 01/22/2015 Referral: Otf Lee [id number] Referral Initiated Instructions Comment . Chronic Anticoagul [...] providers and pt has been seen at [facility] and that surgeon felt like Kat would be better served by Dr. Betancur at [facility]. I have recommended a referral to dr. [...] to further attempt to reduce peripheral edema. OFIG-dikganiw-mszxgzfc prilosec BID and carafate QID -discussed low [...] FOODS . Hypertension - well controlled - [place] with current medications, continue with no [...] Elevated blood sugars-check Hgb A1C dr willis ash the staff get you scheduled for [...] have surgical fixation - planning occurring at [facility]. Snoring - Sleep apnea [...]
--- OUTSIDE RECORDS SUMMARY | 2020-01-16 23:10 | XMS REPORT | CCD ---
Author Author Kat Almanza Organization Sarai Almanza MD, [facility] Address [address] [place] [address] Phone Care Team Providers Care President Ceo & Founder Name Role Phone PP Unavailable CCM Unavailable Summary Purpose Interface Exchange Insurance Providers Payer name Policy type / Coverage type Covered constitution party ID Effective Begin Date Effective End Date WPS Medicare Part B Medicare Part B [id number] 2017 Unknown [employer] [place] Medicare Part B [id number] 2017 Unknown Family history Father Diagnosis Age At Onset Hyperlipidemia Unknown Heart Attack Unknown Mother Diagnosis Age At Onset Arthritis Unknown Social History Social History Element Codes Description Effective Dates Marital status Unknown M arried Nathan 09/30/2016 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 Number of children Unknown 3 01/22/[address]: 598907363 Never smoker 01/22/[address]: 640444779 Never drinks alcohol 01/22/2015 Allergies, Adverse Reactions, Alerts Substance Reaction Codes Entered Date Inactivated Date Status * NO KNOWN DRUG ORIN RGIES Unknown 01/22/2015 No Inactive Date Active Past Medical History Illness Codes Condition Status Onset Date Resolved Date Mixed hyperlipidemia ICD-9: 272.4 ICD-10: E78.2 Active 06/09/2015 Unknown Hypothyroidism, unsp ecified ICD-9: 244.9 ICD-10: E03.9 Active 05/27/2017 Unknown score caller (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 ICD-9: V58.61 ICD-10: [...] ecified ICD-9: 244.9 ICD-10: E03.9 05/27/2017 Active score caller (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 ICD-9: V58.61 ICD-10: [...] ICD-9: 780.79 ICD-10: R53.83 08/20/2016 Active Other correction (cur rent) drug therapy ICD-9: [...] E R 20 mEq tablet,extended release RxNorm: 513095 1 Tablet(s) PO daily 10/03/2018 01/30/2019 Active Carafate 1 gram tablet RxNorm: 451898 TAKE ONE TABLET BY MOUTH BEFORE MEALS AN D AT BEDTIME 09/26/2018 11/16/2018 Active Plavix 75 mg tablet RxNorm: 386667 TAKE ONE TABLET BY MOUTH DAILY 09/02/2018 02/28/2019 Ac tive prednisone 10 mg tablet RxNorm: 371816 Tablet(s) PO 09/02/2018 No Stop Date Active 60,60,50,50,40,40,30,30,20,20,10,10 Synthroid 125 mcg ta blet RxNorm: 775060 1 Tablet(s) PO daily 09/02/2018 08/27/2019 Active potassium chloride E R 20 mEq tablet,extended release RxNorm: 438885 1 Tablet(s) PO daily 09/02/2018 09/01/2018 Inactive potassium chloride E R 20 mEq tablet,extended release RxNorm: 096916 1 Tablet(s) PO daily 09/02/2018 10/02/2018 Inactive Synthroid 125 mcg ta blet RxNorm: 939208 1 Tablet(s) PO daily 09/02/2018 09/01/2018 Inactive Keflex 500 mg capsule RxNorm: 651043 1 Capsule(s) PO TID 09/02/2018 09/08/2018 Inactive Kenalog 40 mg/mL maxine pension for injection RxNorm: 5133785 Milliliter(s) Inj 09/02/2018 09/02/2018 In active Lipitor 40 mg tablet RxNorm: 210991 TAKE ONE TABLET BY MOUTH DAILY 07/29/2018 07/23/2019 Ac tive Coumadin 1 mg tablet RxNorm: 432751 TAKE ONE TABLET BY MOUTH DAILY 07/29/2018 10/26/2018 Ac tive Carafate 1 gram tablet RxNorm: 392793 TAKE ONE TABLET BY MOUTH BEFORE MEALS AN D AT BEDTIME 07/28/2018 09/17/2018 Inactive Coumadin 4 mg tablet RxNorm: 548067 2 Tablet(s) daily 07/11/2018 02/05/2019 Active Generi c For:COUMADIN 4MG 07/22/2017 8:58:26 AM Coumadin 5 mg tablet RxNorm: 667409 Tablet(s) TAKE 1 TABLET BY MOUTH DIRE CTED 07/08/2018 01/03/2019 Ac tive Generic For:COUMADIN 5MG TAB 03/21/2018 9:13:00 AM Coumadin 4 mg tablet RxNorm: 083822 Tablet(s) TAKE 1 TABLET BY MOUTH THREE T IMES PER WEEK (WEDNESDAY, WEDNESDAY AND WEDNESDAY) 07/08/2018 07/10/2018 Inactive Gene andre For:COUMADIN 4MG 07/22/2017 8:58:26 AM Coumadin 1 mg tablet RxNorm: 430579 1 Tablet(s) PO daily 07/08/2018 08/06/2018 Inactive venlafaxine ER 75 mg capsule,extended release 24 hr RxNorm: 915631 Capsule(s) TAKE 1 CAPSULE BY MOUTH ONCE DAILY 06/23/2018 06/17/2019 Active Generic For:*EFFEXOR XR 75MG 06/19/2017 12:23:45 PM sodium bicarbonate 6 50 mg tablet RxNorm: 558537 Tablet(s) TAKE 2 TABL ETS BY MOUTH TWICE DAILY 06/23/2018 12/19/2018 Active 12/20/2017 9:10:59 AM Coumadin 1 mg tablet RxNorm: 588794 1 Tablet(s) PO daily 06/17/2018 07/07/2018 Inactive Coumadin 1 mg tablet RxNorm: 868374 1 Tablet(s) PO daily 06/17/2018 06/16/2018 Inactive clonazepam 0.5 mg ta blet RxNorm: 597466 1 Tablet(s) PO BID 06/08/2018 11/04/2018 Active spironolactone 25 mg tablet RxNorm: 604008 TAKE 1 TABLET BY MOUT H EVERY DAY 05/18/2018 05/12/2019 Ac tive Generic For:*ALDACTONE 25MG 05/18/2018 8:57:50 AM Carafate 1 gram tablet RxNorm: 474543 TAKE ONE TABLET BY MOUTH BEFORE MEALS AN D AT BEDTIME 05/18/2018 07/12/2018 Inactive Generic For:CARAFATE 1GM 1 07/18/2017 8:38:28 AM Synthroid 137 mcg ta blet RxNorm: 615057 TAKE 1 TABLET BY MOUT H ONCE DAILY 05/18/2018 08/30/2018 In active Generic For:SYNTHROID 137MCG TAB 2017 8:57:54 AM allopurinol 300 mg t ablet RxNorm: 213225 TAKE 1 TABLET BY MOUT H ONCE DAILY. 04/18/2018 10/14/2018 Ac tive Generic For:ZYLOPRIM 300 MG TABLET 03/22 9:13:47 AM Lasix 20 mg tablet RxNorm: 963033 TAKE ONE TABLET BY MOUTH DAILY 04/18/2018 08/15/2018 In active Generic For:LASIX 20MG 04/18/2018 9:13: 50 AM Carafate 1 gram tablet RxNorm: 614465 TAKE ONE TABLET BY MOUTH BEFORE MEALS AN D AT BEDTIME 04/18/2018 05/17/2018 Inactive Generic For:CARAFATE 1GM 1 9:32:51 AM Coumadin 5 mg tablet RxNorm: 644666 TAKE 1 TABLET BY MOUTH DIRECTED 03/21/2018 07/07/2018 In active Generic For:COUMADIN 5MG TAB 03/21/2018 9:13:00 AM Carafate 1 gram tablet RxNorm: 912932 TAKE ONE TABLET BY MOUTH BEFORE MEALS AN D AT BEDTIME 03/21/2018 04/17/2018 Inactive Generic For:CARAFATE 1GM 1 9:14:24 AM Carafate 1 gram tablet RxNorm: 063156 1 Tablet(s) PO AC & HS 02/17/2018 03/20/2018 Inactive atenolol 100 mg tablet RxNorm: 688451 1 Tablet(s) PO daily 02/04/2018 09/01/2018 Inactive atenolol 50 mg tablet RxNorm: 673926 1 Tablet(s) PO daily 02/03/2018 02/03/2018 Inactive omeprazole 20 mg cap sean,delayed release RxNorm: 339124 1 Capsule(s) BID 01/21/2018 01/15/2019 Ac tive Generic For:PRILOSEC 20MG 07/22/2017 8:5 8:20 AM Carafate 1 gram tablet RxNorm: 465404 1 Tablet(s) PO AC & HS 01/21/2018 02/16/2018 Inactive Carafate 1 gram tablet RxNorm: 741193 1 Tablet(s) PO AC & HS 01/18/2018 01/20/2018 Inactive Carafate 1 gram tablet RxNorm: 379377 1 Tablet(s) PO AC & HS 01/18/2018 02/27/2018 Inactive Carafate 1 gram tablet RxNorm: 283928 1 Tablet(s) PO AC & HS TAKE ONE TABLET B Y MOUTH TWICE DAILY 01/18/2018 05/17/2018 Inactive Generic For:CARAFATE 1GM 0 12/20/2017 9:10:56 AM omeprazole 20 mg cap sean,delayed release RxNorm: 768527 Capsule(s) TAKE 1 CAP SEAN BY MOUTH EVERY DAY 01/17/2018 01/20/2018 Inactive Generic For:PRILOSEC 20MG 0 07/22/2017 8:58:20 AM omeprazole 20 mg cap sean,delayed release RxNorm: 163098 Capsule(s) TAKE 1 CAP SEAN BY MOUTH EVERY DAY 01/14/2018 01/16/2018 Inactive Generic For:PRILOSEC 20MG 07/22/2017 8:58:20 AM clonazepam 0.5 mg ta blet RxNorm: 570317 1 Tablet(s) PO BID 01/07/2018 06/05/2018 Inactive Plavix 75 mg tablet RxNorm: 421192 1 Tablet(s) PO daily 01/07/2018 07/05/2018 Inactive Carafate 1 gram tablet RxNorm: 067506 1 Tablet(s) PO AC & HS 01/04/2018 01/17/2018 Inactive Lasix 20 mg tablet RxNorm: 040925 TAKE ONE TABLET BY MOUTH DAILY 12/20/2017 04/17/2018 In active Generic For:LASIX 20MG 12/20/2017 9:11: 03 AM sodium bicarbonate 6 50 mg tablet RxNorm: 535615 TAKE 2 TABLETS BY JAVON TWICE DAILY 12/20/2017 06/17/2018 In active 12/20/2017 9:10:59 AM Carafate 1 gram tablet RxNorm: 210626 TAKE ONE TABLET BY MOUTH TWICE DAILY 12/20/2017 01/17/2018 In active Generic For:CARAFATE 1GM 12/20/2017 9:1 0:56 AM Synthroid 137 mcg ta blet RxNorm: 520234 TAKE 1 TABLET BY MOUT H ONCE DAILY 11/19/2017 05/17/2018 In active Generic For:SYNTHROID 137MCG TAB 2017 8:58:04 AM Detrol LA 4 mg capsu le,extended release RxNorm: 173305 TAKE 1 CAPSULE BY JAVON TH ONCE DAILY 10/20/2017 04/13/2018 Inactive Generic For:DETROL LA 4MG C AP 10/20/2017 9:01:56 AM allopurinol 300 mg t ablet RxNorm: 201464 TAKE 1 TABLET BY MOUT H ONCE DAILY. 10/20/2017 04/17/2018 In active Generic For:ZYLOPRIM 300 MG TABLET 07/2017 9:01:59 AM Coumadin 5 mg tablet RxNorm: 979074 1 Tablet(s) PO UD 10/01/2017 03/20/2018 Inactive cyclobenzaprine 5 mg tablet RxNorm: 699964 1 Tablet(s) PO TID as needed myscle spasm 09/23/2017 10/12/2017 Inactive Lipitor 40 mg tablet RxNorm: 559046 TAKE 1 TABLET BY MOUTH ONCE DAILY 09/20/2017 07/28/2018 In active Generic For:LIPITOR 40MG 09/20/2017 8:5 6:04 AM atenolol 100 mg tablet RxNorm: 738171 1 Tablet(s) PO daily 08/30/2017 02/03/2018 Inactive atenolol 50 mg tablet RxNorm: 420491 1 Tablet(s) PO daily 08/30/2017 08/30/2017 Inactive Lovenox 30 mg/0.3 mL subcutaneous syringe RxNorm: 606196 0.3 Milliliter(s) SQ Q12H 08/24/2017 09/06/2017 In active Lasix 20 mg tablet RxNorm: 827734 TAKE ONE TABLET BY MOUTH DAILY 08/23/2017 12/19/2017 In active Generic For:LASIX 20MG 08/21/2017 9:04: 27 AM Synthroid 137 mcg ta blet RxNorm: 066448 TAKE 1 TABLET BY MOUT H ONCE DAILY 08/23/2017 11/18/2017 In active Generic For:SYNTHROID 137MCG TAB 2017 9:04:30 AM Lovenox 30 mg/0.3 mL subcutaneous syringe RxNorm: 137799 0.3 Milliliter(s) SQ Q12H 08/10/2017 08/23/2017 In active clonazepam 0.5 mg ta blet RxNorm: 401601 1 Tablet(s) PO BID 08/04/2017 12/30/2017 Inactive omeprazole 20 mg cap sean,delayed release RxNorm: 567030 TAKE 1 CAPSULE BY JAVON TH EVERY DAY 07/22/2017 01/13/2018 Inactive Generic For:PRILOSEC 20MG 07/22/2017 8: 58:20 AM Coumadin 4 mg tablet RxNorm: 421640 TAKE 1 TABLET BY MOUTH THREE TIMES PER [place] (WEDNESDAY, WEDNESDAY AND WEDNESDAY) 07/22/2017 10/03/2018 Inactive Generic For:COUMADIN 4MG 07/22/2017 8:58:26 AM Coumadin 4 mg tablet RxNorm: 137046 TAKE 1 TABLET BY MOUTH THREE TIMES PER [place] (WEDNESDAY, WEDNESDAY AND WEDNESDAY) 07/22/2017 02/16/2018 Inactive Generic For:COUMADIN 4MG 07/22/2017 8:58:26 AM sodium bicarbonate 6 50 mg tablet RxNorm: 160912 TAKE 2 TABLETS BY JAVON TH TWICE DAILY 06/22/2017 12/18/2017 In active 06/19/2017 12:23:30 PM venlafaxine ER 75 mg capsule,extended release 24 hr RxNorm: 912120 TAKE 1 CAPSULE BY MOUTH ONCE DAILY 06/22/2017 06/16/2018 Inactive Generic For:*EFFEXOR XR 75M G 06/19/2017 12:23:45 PM Coumadin 5 mg tablet RxNorm: 955848 1 Tablet(s) PO UD 06/01/2017 09/30/2017 Inactive Keflex 500 mg capsule RxNorm: 399632 1 Capsule(s) PO TID 05/27/2017 06/02/2017 Inactive Synthroid 137 mcg ta blet RxNorm: 737535 TAKE 1 TABLET BY MOUT H ONCE DAILY 05/24/2017 08/21/2017 In active Generic For:SYNTHROID 137MCG TAB 2016 8:55:59 AM Carafate 1 gram tablet RxNorm: 483486 TAKE ONE TABLET BY MOUTH TWICE DAILY 05/24/2017 12/19/2017 In active Generic For:CARAFATE 1GM 05/24/2017 8:5 5:54 AM spironolactone 25 mg tablet RxNorm: 303602 1 Tablet(s) PO daily 05/24/2017 05/17/2018 Inactive Detrol LA 4 mg capsu le,extended release RxNorm: 862476 1 Capsule(s) PO daily TAKE 1 CAPSULE BY MOUTH ONCE DAILY 05/10/2017 10/19/2017 Inactive Generic For:DETROL LA 4MG CAP 02/19/2017 2:36:00 PM Lasix 20 mg tablet RxNorm: 396755 TAKE ONE TABLET BY MOUTH DAILY 04/23/2017 08/20/2017 In active Generic For:LASIX 20MG 04/23/2017 9:04: 01 AM Coumadin 4 mg tablet RxNorm: 426942 TAKE 1 TABLET BY MOUTH THREE TIMES PER [place] (WEDNESDAY, WEDNESDAY AND WEDNESDAY) 04/23/2017 07/21/2017 Inactive Generic For:COUMADIN 4MG 04/23/2017 9:04:05 AM allopurinol 300 mg t ablet RxNorm: 433315 TAKE 1 TABLET BY MOUT H ONCE DAILY. 04/23/2017 10/19/2017 In active Generic For:ZYLOPRIM 300 MG TABLET 08/2016 9:03:57 AM potassium chloride 2 0 mEq/15 mL oral liquid RxNorm: 934380 Milliliter(s) 30 Milliliter(s) (40mEq) PO daily 03/24/2017 07/21/2017 Inactive Lovenox 30 mg/0.3 mL subcutaneous syringe RxNorm: 002604 0.3 Milliliter(s) SQ Q12H 03/22/2017 03/26/2017 In active Lovenox 30 mg/0.3 mL subcutaneous syringe RxNorm: 021332 0.3 Milliliter(s) SQ Q12H 03/19/2017 03/20/2017 In active Lovenox 30 mg/0.3 mL subcutaneous syringe RxNorm: 147132 0.3 Milliliter(s) SQ Q12H 03/16/2017 03/18/2017 In active clonazepam 0.5 mg ta blet RxNorm: 470541 1 Tablet(s) PO BID 03/02/2017 10/03/2018 Inactive Lovenox 30 mg/0.3 mL subcutaneous syringe RxNorm: 072157 1 injection SQ BID do NOT take the night time dose the day before surgery, or the morning dose the day of surgery 03/01/2017 03/07/2017 Inactive Lovenox 30 mg/0.3 mL subcutaneous syringe RxNorm: 210751 1 injection SQ BID 03/01/2017 02/28/2017 In active Detrol LA 4 mg capsu le,extended release RxNorm: 427359 TAKE 1 CAPSULE BY JAVON TH ONCE DAILY 02/19/2017 05/09/2017 Inactive Generic For:DETROL LA 4MG C AP 02/19/2017 2:36:00 PM hydrocodone 5 mg-humberto taminophen 325 mg tablet RxNorm: 361129 1-2 Tablet(s) PO Q6 P RN 02/04/2017 No Stop Date Active Zetia 10 mg tablet RxNorm: 099339 TAKE 1 TABLET BY MOUTH DAILY 01/25/2017 04/13/2018 Inactive 01/23/2017 9:03:48 AM omeprazole 20 mg cap sean,delayed release RxNorm: 124981 TAKE 1 CAPSULE BY JAVON TH EVERY DAY 01/25/2017 07/21/2017 Inactive Generic For:PRILOSEC 20MG 01/23/2017 9: 03:45 AM Coumadin 4 mg tablet RxNorm: 366182 TAKE 1 TABLET BY MOUTH THREE TIMES PER [place] (WEDNESDAY, WEDNESDAY AND WEDNESDAY) 01/25/2017 04/22/2017 Inactive Generic For:COUMADIN 4MG 01/23/2017 9:03:51 AM sodium bicarbonate 6 50 mg tablet RxNorm: 859193 TAKE 2 TABLETS BY JAVON TH TWICE DAILY 12/24/2016 06/21/2017 In active 12/24/2016 9:09:27 AM Lasix 20 mg tablet RxNorm: 954553 1 Tablet(s) PO daily 12/24/2016 04/22/2017 Inactive Synthroid 137 mcg ta blet RxNorm: 715734 TAKE 1 TABLET BY MOUT H ONCE DAILY 11/24/2016 05/22/2017 In active Generic For:SYNTHROID 137MCG TAB 2016 9:04:37 AM Coumadin 4 mg tablet RxNorm: 115591 TAKE 1 TABLET BY MOUTH THREE TIMES PER [place] (WEDNESDAY, WEDNESDAY AND WEDNESDAY) 11/24/2016 01/22/2017 Inactive Generic For:COUMADIN 4MG 11/24/2016 9:04:41 AM hydrocodone 5 mg-humberto taminophen 325 mg tablet RxNorm: 259914 1-2 Tablet(s) PO Q6 P RN 11/17/2016 02/03/2017 In active Carafate 1 gram tablet RxNorm: 276180 TAKE ONE TABLET BY MOUTH TWICE DAILY 10/27/2016 05/23/2017 In active Generic For:CARAFATE 1GM 10/26/2016 8:3 9:42 AM allopurinol 300 mg t ablet RxNorm: 442426 Tablet(s) TAKE 1 TABL ET BY MOUTH ONCE DAILY. 10/26/2016 04/22/2017 Inactive Lipitor 40 mg tablet RxNorm: 047122 1 Tablet(s) PO daily 09/25/2016 09/19/2017 Inactive Coumadin 4 mg tablet RxNorm: 680136 TAKE 1 TABLET BY MOUTH THREE TIMES PER [place] (WEDNESDAY, WEDNESDAY AND WEDNESDAY) 09/25/2016 11/23/2016 Inactive Generic For:COUMADIN 4MG 09/25/2016 8:55:58 AM Zetia 10 mg tablet RxNorm: 502118 1 Tablet(s) PO daily 09/25/2016 01/22/2017 Inactive gave 1 month of samples clonazepam 0.5 mg ta blet RxNorm: 566104 1 Tablet(s) PO BID 09/21/2016 10/03/2018 Inactive Lasix 20 mg tablet RxNorm: 722233 1 Tablet(s) PO daily 09/15/2016 12/23/2016 Inactive potassium chloride 2 0 mEq/15 mL oral liquid RxNorm: 746677 Milliliter(s) 30 Milliliter(s) (40mEq) PO daily 09/15/2016 01/12/2017 Inactive Lasix 20 mg tablet RxNorm: 098854 2 Tablet(s) PO daily 09/10/2016 09/12/2016 Inactive Lasix 20 mg tablet RxNorm: 660222 1 Tablet(s) PO daily 08/28/2016 08/30/2016 Inactive Lasix 20 mg tablet RxNorm: 912160 1 Tablet(s) PO daily 08/20/2016 08/22/2016 Inactive Detrol LA 4 mg capsu le,extended release RxNorm: 015559 TAKE 1 CAPSULE BY JAVON TH ONCE DAILY 07/27/2016 02/18/2017 Inactive Generic For:DETROL LA 4MG C AP 07/27/2016 9:08:27 AM Coumadin 4 mg tablet RxNorm: 466522 1 Tablet(s) PO 3 x week wed and sun 07/27/2016 09/24/2016 In active omeprazole 20 mg cap sean,delayed release RxNorm: 855191 Capsule(s) PO TAKE 1 CAPSULE BY MOUTH ONCE DAILY 07/27/2016 01/22/2017 Inactive venlafaxine ER 75 mg capsule,extended release 24 hr RxNorm: 428146 1 Capsule(s) PO daily 06/29/2016 06/21/2017 Inactive sodium bicarbonate 6 50 mg tablet RxNorm: 796915 TAKE 2 TABLETS BY JAVON TWICE DAILY 06/29/2016 12/23/2016 In active 06/27/2016 9:05:39 AM Coumadin 4 mg tablet RxNorm: 738077 1 Tablet(s) PO 3 x week wed and sun 06/09/2016 06/08/2016 In active Coumadin 4 mg tablet RxNorm: 027242 1 Tablet(s) PO 3 x week wed and sun 06/09/2016 07/26/2016 In active Zetia 10 mg tablet RxNorm: 843705 1 Tablet(s) PO daily 06/09/2016 06/08/2016 Inactive gave 1 month of samples Zetia 10 mg tablet RxNorm: 160416 1 Tablet(s) PO daily 06/09/2016 09/24/2016 Inactive gave 1 month of samples Effexor 75 mg tablet RxNorm: 637176 1 Tablet(s) PO daily 06/08/2016 06/28/2016 Inactive spironolactone 25 mg tablet RxNorm: 923709 1 Tablet(s) PO daily 06/08/2016 05/23/2017 Inactive Synthroid 137 mcg ta blet RxNorm: 617730 1 Tablet(s) PO daily 05/07/2016 11/02/2016 Inactive allopurinol 300 mg t ablet RxNorm: 701973 Tablet(s) TAKE 1 TABL ET BY MOUTH ONCE DAILY. 04/28/2016 10/24/2016 Inactive clonazepam 0.5 mg ta blet RxNorm: 708043 1 Tablet(s) PO BID 04/20/2016 10/03/2018 Inactive Flonase Allergy Reli ef 50 mcg/actuation nasal spray,suspension RxNorm: 0058422 1 [place] NASAL BID 04/02/2016 No Stop Date Active Zithromax Z-Thomas 250 mg tablet RxNorm: 814954 Tablet(s) PO 04/02/2016 08/27/2016 Inactive cetirizine 10 mg tablet RxNorm: 8154308 1 Tablet(s) PO daily 04/02/2016 05/01/2016 Inactive Carafate 1 gram tablet RxNorm: 844278 Tablet(s) TAKE 1 TABLET TWICE A DAY FOR 30 DAYS 03/30/2016 10/25/2016 Inactive Generic For:CARAFATE 1GM 02/08/2015 12:3 6:39 PM Plavix 75 mg tablet RxNorm: 035963 1 Tablet(s) PO daily 03/11/2016 09/06/2016 Inactive sodium bicarbonate 6 50 mg tablet RxNorm: 665916 Tablet(s) 2 Tablet(s) PO BID 02/28/2016 06/26/2016 In active omeprazole 20 mg cap sean,delayed release RxNorm: 337651 Capsule(s) PO TAKE 1 CAPSULE BY MOUTH ONCE DAILY 01/31/2016 07/26/2016 Inactive Fish Oil 1,000 mg ca psule RxNorm: 1 Capsule(s) PO BID 01/14/2016 No Stop Date Active Synthroid 137 mcg ta blet RxNorm: 359985 1 Tablet(s) PO daily 01/14/2016 05/06/2016 Inactive Detrol LA 4 mg capsu le,extended release RxNorm: 288416 TAKE 1 CAPSULE BY JAVON TH ONCE DAILY 12/30/2015 07/26/2016 Inactive Generic For:DETROL LA 4MG C AP 12/30/2015 9:11:01 AM potassium chloride 2 0 mEq/15 mL oral liquid RxNorm: 119529 Milliliter(s) 30 Milliliter(s) (40mEq) PO daily 12/02/2015 03/30/2016 Inactive sodium bicarbonate 6 50 mg tablet RxNorm: 783606 Tablet(s) 2 Tablet(s) PO BID 10/31/2015 02/27/2016 In active Lipitor 40 mg tablet RxNorm: 830154 1 Tablet(s) PO daily 10/09/2015 09/24/2016 Inactive sodium bicarbonate 6 50 mg tablet RxNorm: 331461 2 Tablet(s) PO BID 10/01/2015 10/30/2015 Inactive allopurinol 300 mg t ablet RxNorm: 357988 TAKE 1 TABLET BY MOUT H ONCE DAILY. 10/01/2015 04/27/2016 In active Generic For:ZYLOPRIM 300 MG TABLET 09/19 9:21:15 AM clonazepam 0.5 mg ta blet RxNorm: 614199 1 Tablet(s) PO BID 09/30/2015 04/19/2016 Inactive Coumadin 5 mg tablet RxNorm: 074097 1 Tablet(s) PO daily 09/27/2015 05/31/2017 Inactive Generic For:COUMADIN 5MG TAB N O T I C E PRESCRIPTION PREVIOUSLY AUTHORIZED BY DOCTOR:BOBBY ZULETA Synthroid 125 mcg ta blet RxNorm: 046788 1 Tablet(s) PO daily 09/27/2015 09/26/2015 Inactive Synthroid 125 mcg ta blet RxNorm: 562542 1 Tablet(s) PO daily 09/27/2015 01/13/2016 Inactive Carafate 1 gram tablet RxNorm: 675613 Tablet(s) TAKE 1 TABLET TWICE A DAY FOR 30 DAYS 09/02/2015 03/29/2016 Inactive Generic For:CARAFATE 1GM 02/08/2015 12:3 6:39 PM sodium bicarbonate 6 50 mg tablet RxNorm: 618827 2 Tablet(s) PO BID 09/02/2015 09/30/2015 Inactive Prilosec 20 mg capsu le,delayed release RxNorm: 266283 TAKE 1 CAPSULE BY JAVON TH ONCE DAILY 08/02/2015 01/28/2016 Inactive Generic For:PRILOSEC 20MG 08/02/2015 10:03:09 AM N O T I C E PRESCRIPTION PREVIOUSLY AUTHORIZED BY DOCTOR:BOBBY ZULETA Zyrtec 10 mg capsule RxNorm: 3341384 1 Capsule(s) PO daily 07/15/2015 08/13/2015 Inactive Keflex 500 mg capsule RxNorm: 234188 1 Capsule(s) PO TID 07/15/2015 07/21/2015 Inactive cetirizine 10 mg cap sean RxNorm: 7077767 1 Capsule(s) PO daily 07/15/2015 08/13/2015 Inactive hydrocodone 5 mg-humberto taminophen 325 mg tablet RxNorm: 013708 1-2 Tablet(s) PO Q6 P RN 06/10/2015 11/16/2016 In active sodium bicarbonate 6 50 mg tablet RxNorm: 240941 2 Tablet(s) PO BID 06/03/2015 08/31/2015 Inactive Detrol LA 4 mg capsu le,extended release RxNorm: 732173 TAKE 1 CAPSULE BY JAVON TH ONCE DAILY 06/03/2015 12/29/2015 Inactive Generic For:DETROL LA 4MG C AP N O T I C E PRESCRIPTION PREVIOUSLY AUTHORIZED BY DOCTOR:BOBBY ZULETA atenolol 50 mg tablet RxNorm: 934861 1 Tablet(s) PO daily TAKE 1 TABLET BY MO UTH DAILY 05/07/2015 08/23/2017 Inactive Generic For:TENORMIN 50MG 05/04/2015 9:07:22 AM spironolactone 25 mg tablet RxNorm: 373085 1 Tablet(s) PO daily 05/06/2015 06/07/2016 Inactive venlafaxine ER 75 mg capsule,extended release 24 hr RxNorm: 638694 1 Capsule(s) PO daily 05/04/2015 06/28/2016 Inactive atenolol 50 mg tablet RxNorm: 538660 TAKE 1 TABLET BY MOUTH DAILY 05/04/2015 05/06/2015 Inactive Generic For:TENORMIN 50MG 05/04/2015 9: 07:22 AM Synthroid 150 mcg ta blet RxNorm: 348339 TAKE 1 TABLET BY MOUT H ONCE DAILY. 04/05/2015 09/26/2015 In active Generic For:SYNTHROID 150MCG TAB 2014 4:45:40 PM N O T I C E PRESCRIPTION PREVIOUSLY AUTHORIZED BY DOCTOR:BOBBY ZULETA Effexor 75 mg tablet RxNorm: 824517 1 Tablet(s) PO daily 04/05/2015 07/03/2015 Inactive Coumadin 5 mg tablet RxNorm: 104924 TAKE 1 AND 1/2 TABLETS BY MOUTH ONCE MYRANDA LY 04/04/2015 09/26/2015 In active Generic For:COUMADIN 5MG TAB N O T I C E PRESCRIPTION PREVIOUSLY AUTHORIZED BY DOCTOR:BOBBY ZULETA clonazepam 0.5 mg ta blet RxNorm: 982467 1 Tablet(s) PO BID 03/13/2015 11/05/2015 Inactive sodium bicarbonate 6 50 mg tablet RxNorm: 743609 2 Tablet(s) PO BID 03/08/2015 06/02/2015 Inactive allopurinol 300 mg t ablet RxNorm: 393929 TAKE 1 TABLET BY MOUT H ONCE DAILY. 03/05/2015 09/30/2015 In active N O T I C E PRESCRIPTION PREVIOUSLY A UTHORIZED BY DOCTOR:BOBBY ZULETA Plavix 75 mg tablet RxNorm: 808904 1 Tablet(s) PO daily 02/12/2015 09/09/2015 Inactive clonazepam 0.5 mg ta blet RxNorm: 100512 1 Tablet(s) PO BID 02/11/2015 03/11/2015 Inactive Carafate 1 gram tablet RxNorm: 773706 TAKE 1 TABLET TWICE A DAY FOR 30 DAYS 02/08/2015 02/07/2015 In active Generic For:CARAFATE 1GM 02/08/2015 12:3 6:39 PM Carafate 1 gram tablet RxNorm: 392512 Tablet(s) TAKE 1 TABLET TWICE A DAY FOR 30 DAYS 02/08/2015 09/01/2015 Inactive Generic For:CARAFATE 1GM 02/08/2015 12:3 6:39 PM potassium chloride 2 0 mEq/15 mL oral liquid RxNorm: 976023 30 Milliliter(s) (40m Eq) PO daily 02/05/2015 12/01/2015 Inactive atenolol 50 mg tablet RxNorm: 343187 1 Tablet(s) PO daily 02/04/2015 05/03/2015 Inactive [SAVINGS FOR NON-COVERED DRUGS -- BIN:00 3981, PCN: [id number], Group: XXXXX, ID# [id number], Questions: . THIS IS NOT INSURANCE.] potassium chloride 2 0 mEq/15 mL oral liquid RxNorm: 743481 30 Milliliter(s) (40m Eq) PO daily 01/08/2015 02/04/2015 Inactive potassium chloride 2 0 mEq/15 mL oral liquid RxNorm: 908810 30 Milliliter(s) (40m Eq) PO daily 12/07/2014 01/07/2015 Inactive atenolol 50 mg tablet RxNorm: 592295 1 Tablet(s) PO daily 11/09/2014 11/08/2014 Inactive atenolol 50 mg tablet RxNorm: 022619 1 Tablet(s) PO daily 11/09/2014 02/03/2015 Inactive [SAVINGS FOR NON-COVERED DRUGS -- BIN:00 3585, PCN: [id number], Group: XXXXX, ID# [id number], Questions: . THIS IS NOT INSURANCE.] Voltaren 1 % topical gel RxNorm: 418081 TOP No St art Date Active verapamil ER (HS) 24 0 mg tablet,extended release 24 hr RxNorm: 631040 1 Tablet(s) PO daily No Start Date Active aspirin 81 mg tablet RxNorm: 736133 1 Tablet(s) PO daily No Start Date Active Zofran 4 mg tablet RxNorm: 186357 1 Tablet(s) PO PRN No Start Date Active B12 1000 mcg RxNorm: 1 Tablet(s) PO daily No Start Date Active magnesium oxide 400 mg capsule RxNorm: 007214 2 Capsule(s) PO BID No Start Date Active Synthroid 150 mcg ta blet RxNorm: 829649 1 Tablet(s) PO daily No Start Date 04/04/2015 Inactive Coumadin 5 mg tablet RxNorm: 204103 1 Tablet(s) PO daily No Start Date 04/03/2015 Inactive cranberry 1,000 mg c apsule RxNorm: 806491 1 Capsule(s) PO daily No Start Date 04/13/2018 Inactive allopurinol 300 mg t ablet RxNorm: 427408 1 Tablet(s) PO daily No Start Date 03/04/2015 Inactive Prilosec 20 mg capsu le,delayed release RxNorm: 323616 1 Capsule(s) PO PRN No Start Date 08/01/2015 Inactive potassium chloride 2 0 mEq/15 mL oral liquid RxNorm: 912323 30 Milliliter(s) (40m Eq) PO daily No Start Date 12/06/2014 Inactive atenolol 50 mg tablet RxNorm: 905900 1 Tablet(s) PO daily No Start Date 08/29/2017 Inactive Lipitor 40 mg tablet RxNorm: 732458 1 Tablet(s) PO daily No Start Date 09/19/2017 Inactive Effexor 75 mg tablet RxNorm: 784740 1 Tablet(s) PO daily No Start Date 04/04/2015 Inactive Carafate 1 gram tablet RxNorm: 382275 1 Tablet(s) PO BID No Start Date 02/07/2015 Inactive clonazepam 0.5 mg ta blet RxNorm: 023411 1 Tablet(s) PO BID No Start Date 02/10/2015 Inactive Plavix 75 mg tablet RxNorm: 221132 1 Tablet(s) PO daily No Start Date 02/11/2015 Inactive sodium bicarbonate 6 50 mg tablet RxNorm: 517492 2 Tablet(s) PO BID No Start Date 09/01/2015 Inactive Lovenox 30 mg/0.3 mL subcutaneous syringe RxNorm: 261779 0.3 Milliliter(s) SQ Q12H No Start Date 03/15/2017 Inactive Fish Oil 1,000 mg ca psule RxNorm: 1 Capsule(s) PO daily No Start Date 01/13/2016 Inactive Detrol LA 4 mg capsu le,extended release RxNorm: 527059 1 Capsule(s) PO daily No Start Date 06/02/2015 Inactive Medication Administered Medication Codes Instruc tions Start Date Status Kenalog 40 mg/mL suspension for injection RxNorm: 5218962 Milliliter 09/02/2018 No longer Active Immunizations Vaccine Codes Date Status SHINGARIX CVX: 121 03/23 completed Assessments Condition Codes Effectiv e Dates Mixed hyperlipidemia ICD-10: E78.2 ICD-9: 272.4 10/05/2018 Other acute sinusitis ICD-10: J01.80 ICD-9: 461.8 09/02/2018 Other allergic rhinitis ICD-10: J30. 89 ICD-9: 477.8 09/02/2018 Hypothyroidism, unspecified ICD-10: E03.9 ICD-9: 244.9 04/14/2018 Essential (primary) hypertension ICD -10: I10 ICD-9: 401.9 04/14/2018 [facility] (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 ICD-10: Z79.01 ICD-9: [...] Code Item Item Code Result Date Pt Fia4148 PT 26.3 seconds 10/13/2018 Pt Tgo8664 INR 2.5 10/13/2018 Pt Gou5185 Low Intensity - 1.5-2.0 10/13/2018 Pt Ilp3841 Mod intensity - 2.0-3.0 10/13/2018 Pt Nqt1848 Hi intensity - 3.0-4.0 10/13/2018 Lipid Ord30 CHOL 180 mg/dL 10/07/2018 Lipid Ord30 HDL 74.0 mg/dl 10/07/2018 Lipid Ord30 TRIG 111 mg/dL 10/07/2018 Lipid Ord30 LDL 84 mg/dL 10/07/2018 Lipid Ord30 C/HDL 2.4 Ratio 10/07/2018 Pt Vxg3382 PT 38.1 seconds 10/07/2018 Pt Snk6962 INR 3.9 10/07/2018 Pt Oha5612 Low Intensity - 1.5-2.0 10/07/2018 Pt Ckb4101 Mod intensity - 2.0-3.0 10/07/2018 Pt Cjf5952 Hi intensity - 3.0-4.0 10/07/2018 Tsh Ord6 TSH (3rd IS) 0.43 uIU/mL 09/02/2018 Comp Metabolic Qcl667 NA 136 mEq/L 09/02/2018 Comp Metabolic Tlv942 K 4.1 mEq/L 09/02/2018 Comp Metabolic Qng749 CL 103 mEq/L 09/02/2018 Comp Metabolic Mbb242 CO2 20.0 mEq/L 09/02/2018 Comp Metabolic Upi186 AN ION GAP 17 09/02/2018 Comp Metabolic Jxg177 GL UCOSE 124 mg/dL 09/02/2018 Comp Metabolic Fjo545 Cr eat 1.0 mg/dL 09/02/2018 Comp Metabolic Nkh000 eG FR 57 ml/min/1.73m2 09/02 Comp Metabolic Xla860 BUN 24 mg/dL 09/02/2018 Comp Metabolic Ubk032 B/ C Ratio 23.8 Ratio 09/02/2018 Comp Metabolic Imr998 CA LCIUM 9.5 mg/dL 09/02/2018 Comp Metabolic Tre110 AL K PHOS 64 U/L 09/02/2018 Comp Metabolic Zua707 T(SGOT) 24 U/L 09/02/2018 Comp Metabolic Nme126 AL T(SGPT) 23 U/L 09/02/2018 Comp Metabolic Wgk501 BI LI T 0.5 mg/dL 09/02/2018 Comp Metabolic Yhk527 AL BUMIN 4.2 g/dL 09/02/2018 Comp Metabolic Eal880 TP RO 7.4 g/dL 09/02/2018 Comp Metabolic Muz647 GL OB 3.2 g/dL 09/02/2018 Comp Metabolic Vcv727 A/ G Ratio 1.3 Ratio 09/02/2018 Comp Metabolic Esm940 Os mo 277 mOsmo 09/02/2018 Pt Oek0647 PT 40.6 seconds 09/02/2018 Pt Clu1545 INR 4.2 09/02/2018 Pt Tyj1553 Low Intensity - 1.5-2.0 09/02/2018 Pt Kqt2237 Mod intensity - 2.0-3.0 09/02/2018 Pt Tim0655 Hi intensity - 3.0-4.0 09/02/2018 Free T4 Rsd753 FREE T4 1.51 ng/dL 09/02/2018 Magnesium Ord90 Mag 1.8 mg/dL 09/02/2018 Pt Mbr7518 PT 29.2 seconds 08/05/2018 Pt Nfq8246 INR 2.8 08/05/2018 Pt Zgi6134 Low Intensity - 1.5-2.0 08/05/2018 Pt Zjp3692 Mod intensity - 2.0-3.0 08/05/2018 Pt Zpw8054 Hi intensity - 3.0-4.0 08/05/2018 Pt Qsj2063 PT 30.2 seconds 07/25/2018 Pt Mxt8271 INR 2.9 07/25/2018 Pt Ezl4066 Low Intensity - 1.5-2.0 07/25/2018 Pt Ikm7868 Mod intensity - 2.0-3.0 07/25/2018 Pt Zys6107 Hi intensity - 3.0-4.0 07/25/2018 Pt Mng3092 PT 25.2 seconds 07/19/2018 Pt Iao0717 INR 2.3 07/19/2018 Pt Vqf7410 Low Intensity - 1.5-2.0 07/19/2018 Pt Jfn6191 Mod intensity - 2.0-3.0 07/19/2018 Pt Ykn2839 Hi intensity - 3.0-4.0 07/19/2018 Pt Ssb6827 PT 17.4 seconds 07/15/2018 Pt Jxj1008 INR 1.5 07/15/2018 Pt Nmy4264 Low Intensity - 1.5-2.0 07/15/2018 Pt Qhf0213 Mod intensity - 2.0-3.0 07/15/2018 Pt Ksf5534 Hi intensity - 3.0-4.0 07/15/2018 Pt Ikz9975 PT 17.8 seconds 07/08/2018 Pt Mea4273 INR 1.5 07/08/2018 Pt Osi0606 Low Intensity - 1.5-2.0 07/08/2018 Pt Kne8604 Mod intensity - 2.0-3.0 07/08/2018 Pt Lgv8371 Hi intensity - 3.0-4.0 07/08/2018 Pt Fyr0813 PT 19.2 seconds 07/01/2018 Pt Hfj7656 INR 1.7 07/01/2018 Pt Zqf2765 Low Intensity - 1.5-2.0 07/01/2018 Pt Kmn5121 Mod intensity - 2.0-3.0 07/01/2018 Pt Zdv2058 Hi intensity - 3.0-4.0 07/01/2018 Pt Oqo4404 PT 17.4 seconds 06/23/2018 Pt Khe3283 INR 1.5 06/23/2018 Pt Svp2171 Low Intensity - 1.5-2.0 06/23/2018 Pt Vmn3851 Mod intensity - 2.0-3.0 06/23/2018 Pt Uoy8870 Hi intensity - 3.0-4.0 06/23/2018 Pt Wec6799 PT 18.4 seconds 06/17/2018 Pt Hkn7457 INR 1.6 06/17/2018 Pt Voh2150 Low Intensity - 1.5-2.0 06/17/2018 Pt Avk6175 Mod intensity - 2.0-3.0 06/17/2018 Pt Opm3716 Hi intensity - 3.0-4.0 06/17/2018 Sed Rate [...] 30.4 pg 06/08/2018 Cbc With Differential Ord2 Mesa% 9.4 % 06/08/2018 Cbc With Differential Ord2 [...] 1.20 K/ul 06/08/2018 Cbc With Differential Ord2 Mesa ABS# 0.5 K/ul 06/08/2018 Cbc With Differential Ord2 Eos ABS# 0.1 K/ul 06/08/2018 Cbc With Differential Ord2 Baso ABS# 0.1 K/ul 06/08/2018 C-Reactive Protein Qnt Crqnt CRP 0.1 mg/dl 06/08/2018 Pt Ara4807 PT 17.6 seconds 06/08/2018 Pt Ovs9691 INR 1.5 06/08/2018 Pt Qmx4125 Low Intensity - 1.5-2.0 06/08/2018 Pt Qhq0095 Mod intensity - 2.0-3.0 06/08/2018 Pt Ymt9103 Hi intensity - 3.0-4.0 06/08/2018 Pt Dnb3531 PT 16.8 seconds 05/10/2018 Pt Eoi3591 INR 1.4 05/10/2018 Pt Qti8399 Low Intensity - 1.5-2.0 05/10/2018 Pt Yao3195 Mod intensity - 2.0-3.0 05/10/2018 Pt Ago4710 Hi intensity - 3.0-4.0 05/10/2018 Pt Jjj0653 PT 16.7 seconds 05/04/2018 Pt Jrd3926 INR 1.4 05/04/2018 Pt Xam3142 Low Intensity - 1.5-2.0 05/04/2018 Pt Rrz3739 Mod intensity - 2.0-3.0 05/04/2018 Pt Jqj6941 Hi intensity - 3.0-4.0 05/04/2018 Free T4 Bpk002 FREE T4 1.09 ng/dL 04/14/2018 Tsh Ord6 TSH (3rd IS) 2.36 uIU/mL 04/14/2018 Pt Hrm9366 PT 20.3 seconds 04/14/2018 Pt Qin7072 INR 1.8 04/14/2018 Pt Hqg4618 Low Intensity - 1.5-2.0 04/14/2018 Pt Psy1634 Mod intensity - 2.0-3.0 04/14/2018 Pt Lqi6941 Hi intensity - 3.0-4.0 04/14/2018 Lipid Ord30 CHOL 149 mg/dL 04/14/2018 Lipid Ord30 HDL 49.0 mg/dl 04/14/2018 Lipid Ord30 TRIG 161 mg/dL 04/14/2018 Lipid Ord30 LDL 68 mg/dL 04/14/2018 Lipid Ord30 C/HDL 3.0 Ratio 04/14/2018 %Hba1C Olg396 % HbA1c 18918-3 5.9 % 04/14/2018 %Hba1C Tnr555 Gluc Ave 123 mg/dL 04/14/2018 Comp Metabolic Dib927 NA 140 mEq/L 04/14/2018 Comp Metabolic Kgh337 K 4.1 mEq/L 04/14/2018 Comp Metabolic Oat640 CL 105 mEq/L 04/14/2018 Comp Metabolic Hzo368 CO2 28.0 mEq/L 04/14/2018 Comp Metabolic Bgu875 AN ION GAP 11 04/14/2018 Comp Metabolic Qbr798 GL UCOSE 112 mg/dL 04/14/2018 Comp Metabolic Nha590 Cr eat 1.0 mg/dL 04/14/2018 Comp Metabolic Qlu833 eG FR 58 ml/min/1.73m2 04/14 Comp Metabolic Eoy162 BUN 20 mg/dL 04/14/2018 Comp Metabolic Ikm605 B/ C Ratio 20.2 Ratio 04/14/2018 Comp Metabolic Cfn468 CA LCIUM 10.0 mg/dL 04/14/2018 Comp Metabolic Ess933 AL K PHOS 51 U/L 04/14/2018 Comp Metabolic Kjp526 T(SGOT) 24 U/L 04/14/2018 Comp Metabolic Zoh358 AL T(SGPT) 21 U/L 04/14/2018 Comp Metabolic Dzt345 BI LI T 0.8 mg/dL 04/14/2018 Comp Metabolic Srh967 AL BUMIN 4.2 g/dL 04/14/2018 Comp Metabolic Vyb891 TP RO 7.1 g/dL 04/14/2018 Comp Metabolic Yid634 GL OB 2.9 g/dL 04/14/2018 Comp Metabolic Hze011 A/ G Ratio 1.5 Ratio 04/14/2018 Comp Metabolic Oel740 Os mo 283 mOsmo 04/14/2018 Cbc With [...] 30.7 pg 04/14/2018 Cbc With Differential Ord2 Mesa% 10.6 % 04/14/2018 Cbc With Differential Ord2 [...] 1.18 K/ul 04/14/2018 Cbc With Differential Ord2 Mesa ABS# 0.5 K/ul 04/14/2018 Cbc With Differential Ord2 Eos ABS# 0.2 K/ul 04/14/2018 Cbc With Differential Ord2 Baso ABS# 0.1 K/ul 04/14/2018 Pt Swx1991 PT 29.3 seconds 02/11/2018 Pt Owm3822 INR 2.8 02/11/2018 Pt Fgp5272 Low Intensity - 1.5-2.0 02/11/2018 Pt Aco4468 Mod intensity - 2.0-3.0 02/11/2018 Pt Pwt7040 Hi intensity - 3.0-4.0 02/11/2018 Comp Metabolic Dqb724 NA 141 mEq/L 01/05/2018 Comp Metabolic Ezv059 K 3.7 mEq/L 01/05/2018 Comp Metabolic Xun134 CL 102 mEq/L 01/05/2018 Comp Metabolic Eom122 CO2 29.0 mEq/L 01/05/2018 Comp Metabolic Xht876 AN ION GAP 14 01/05/2018 Comp Metabolic Axo146 GL UCOSE 136 mg/dL 01/05/2018 Comp Metabolic Ahm248 Cr eat 1.0 mg/dL 01/05/2018 Comp Metabolic Qbx682 eG FR 61 ml/min/1.73m2 01/05 Comp Metabolic Pfp012 BUN 22 mg/dL 01/05/2018 Comp Metabolic Bkk402 B/ C Ratio 22.9 Ratio 01/05/2018 Comp Metabolic Opn066 CA LCIUM 9.7 mg/dL 01/05/2018 Comp Metabolic Jgi365 AL K PHOS 57 U/L 01/05/2018 Comp Metabolic Cgq613 T(SGOT) 21 U/L 01/05/2018 Comp Metabolic Kuw137 AL T(SGPT) 19 U/L 01/05/2018 Comp Metabolic Owt894 BI LI T 0.9 mg/dL 01/05/2018 Comp Metabolic Brl080 AL BUMIN 4.1 g/dL 01/05/2018 Comp Metabolic Gsk838 TP RO 7.1 g/dL 01/05/2018 Comp Metabolic Vte165 GL OB 3.0 g/dL 01/05/2018 Comp Metabolic Hpa444 A/ G Ratio 1.4 Ratio 01/05/2018 Comp Metabolic Ndr377 Os mo 287 mOsmo 01/05/2018 Free T4 Jvk799 FREE T4 1.05 ng/dL 01/05/2018 %Hba1C Zdu004 % HbA1c 92739-4 6.0 % 01/05/2018 %Hba1C Udu112 Gluc Ave 126 mg/dL 01/05/2018 Cbc With [...] 30.6 pg 01/05/2018 Cbc With Differential Ord2 Mesa% 10.5 % 01/05/2018 Cbc With Differential Ord2 [...] 1.27 K/ul 01/05/2018 Cbc With Differential Ord2 Mesa ABS# 0.5 K/ul 01/05/2018 Cbc With Differential Ord2 Eos ABS# 0.2 K/ul 01/05/2018 Cbc With Differential Ord2 Baso ABS# 0.1 K/ul 01/05/2018 Pt Kyl8385 PT 20.7 seconds 01/05/2018 Pt Cyk0075 INR 1.8 01/05/2018 Pt Xze7216 Low Intensity - 1.5-2.0 01/05/2018 Pt Qzz6418 Mod intensity - 2.0-3.0 01/05/2018 Pt Hiq8800 Hi intensity - 3.0-4.0 01/05/2018 Tsh Ord6 TSH (3rd IS) 2.34 uIU/mL 01/05/2018 Lipid Ord30 CHOL 156 mg/dL 01/05/2018 Lipid Ord30 HDL 48.0 mg/dl 01/05/2018 Lipid Ord30 TRIG 207 mg/dL 01/05/2018 Lipid Ord30 LDL 67 mg/dL 01/05/2018 Lipid Ord30 C/HDL 3.3 Ratio 01/05/2018 Pt Ybu2656 PT 28.3 seconds 11/26/2017 Pt Zlm4199 INR 2.6 11/26/2017 Pt Nzc6091 Low Intensity - 1.5-2.0 11/26/2017 Pt Rqu7697 Mod intensity - 2.0-3.0 11/26/2017 Pt Kyx1246 Hi intensity - 3.0-4.0 11/26/2017 Pt Hoe8304 PT 36.5 seconds 11/19/2017 Pt Tms3026 INR 3.6 11/19/2017 Pt Tat1820 Low Intensity - 1.5-2.0 11/19/2017 Pt Hpx7347 Mod intensity - 2.0-3.0 11/19/2017 Pt Usy3322 Hi intensity - 3.0-4.0 11/19/2017 Pt Nra1403 PT 22.9 seconds 10/15/2017 Pt Wtt9856 INR 2.0 10/15/2017 Pt Hoo3446 Low Intensity - 1.5-2.0 10/15/2017 Pt Hwi9062 Mod intensity - 2.0-3.0 10/15/2017 Pt Xbo0677 Hi intensity - 3.0-4.0 10/15/2017 Pt Djg9779 PT 25.9 seconds 10/01/2017 Pt Nod0853 INR 2.4 10/01/2017 Pt Adw2445 Low Intensity - 1.5-2.0 10/01/2017 Pt Tzb6976 Mod intensity - 2.0-3.0 10/01/2017 Pt Vxs6191 Hi intensity - 3.0-4.0 10/01/2017 Pt Bho2064 PT 20.6 seconds 09/24/2017 Pt Dus4200 INR 1.8 09/24/2017 Pt Peu8409 Low Intensity - 1.5-2.0 09/24/2017 Pt Hgi3117 Mod intensity - 2.0-3.0 09/24/2017 Pt Iak3454 Hi intensity - 3.0-4.0 09/24/2017 Pt Nyd9389 PT 21.0 seconds 09/15/2017 Pt Xvu2603 INR 1.8 09/15/2017 Pt Ugw1385 Low Intensity - 1.5-2.0 09/15/2017 Pt Klg4533 Mod intensity - 2.0-3.0 09/15/2017 Pt Pko7089 Hi intensity - 3.0-4.0 09/15/2017 Pt Awm7205 PT 19.0 seconds 09/03/2017 Pt Tfu0098 INR 1.6 09/03/2017 Pt Ajx0570 Low Intensity - 1.5-2.0 09/03/2017 Pt Cwy0005 Mod intensity - 2.0-3.0 09/03/2017 Pt Vlg9600 Hi intensity - 3.0-4.0 09/03/2017 Pt Zqk4823 PT 17.6 seconds 08/23/2017 Pt Ydp0792 INR 1.5 08/23/2017 Pt Ahq0494 Low Intensity - 1.5-2.0 08/23/2017 Pt Igb0515 Mod intensity - 2.0-3.0 08/23/2017 Pt Jnb2477 Hi intensity - 3.0-4.0 08/23/2017 Pt Dup5003 PT 12.7 seconds 08/20/2017 Pt Gif5425 INR 1.0 08/20/2017 Pt Cpa0908 Low Intensity - 1.5-2.0 08/20/2017 Pt Ipq3880 Mod intensity - 2.0-3.0 08/20/2017 Pt Tmq7567 Hi intensity - 3.0-4.0 08/20/2017 Pt Jmj9104 PT 12.9 seconds 08/17/2017 Pt Rhl5574 INR 1.0 08/17/2017 Pt Sib4751 Low Intensity - 1.5-2.0 08/17/2017 Pt Eyb7587 Mod intensity - 2.0-3.0 08/17/2017 Pt Wpm4815 Hi intensity - 3.0-4.0 08/17/2017 Pt Xer9160 PT 18.5 seconds 08/10/2017 Pt Lwx7867 INR 1.6 08/10/2017 Pt Gah0962 Low Intensity - 1.5-2.0 08/10/2017 Pt Gkz1878 Mod intensity - 2.0-3.0 08/10/2017 Pt Mzi2133 Hi intensity - 3.0-4.0 08/10/2017 Tsh Ord6 [...] 29.3 pg 05/27/2017 Cbc With Differential Ord2 Mesa% 8.1 % 05/27/2017 Cbc With Differential Ord2 [...] 1.11 K/ul 05/27/2017 Cbc With Differential Ord2 Mesa ABS# 0.6 K/ul 05/27/2017 Cbc With Differential Ord2 Eos ABS# 0.2 K/ul 05/27/2017 Cbc With Differential Ord2 Baso ABS# 0.1 K/ul 05/27/2017 Pt Mdd1746 PT 28.2 seconds 05/27/2017 Pt Aar5904 INR 2.6 05/27/2017 Pt Obd9865 Low Intensity - 1.5-2.0 05/27/2017 Pt Eda4984 Mod intensity - 2.0-3.0 05/27/2017 Pt Olr2632 Hi intensity - 3.0-4.0 05/27/2017 Lipid Ord30 CHOL 167 mg/dL 05/27/2017 Lipid Ord30 HDL 49.0 mg/dl 05/27/2017 Lipid Ord30 TRIG 347 mg/dL 05/27/2017 Lipid Ord30 LDL 49 mg/dL 05/27/2017 Lipid Ord30 C/HDL 3.4 Ratio 05/27/2017 Magnesium Ord90 Mag 1.4 mg/dL 05/27/2017 %Hba1C Jxi930 % HbA1c 34571-2 5.9 % 05/27/2017 %Hba1C Bpu631 Gluc Ave 123 mg/dL 05/27/2017 Comp Metabolic Iqs587 NA 138 mEq/L 05/27/2017 Comp Metabolic Psz935 K 4.1 mEq/L 05/27/2017 Comp Metabolic Utp232 CL 101 mEq/L 05/27/2017 Comp Metabolic Wmy211 CO2 31.0 mEq/L 05/27/2017 Comp Metabolic Vue826 AN ION GAP 10 05/27/2017 Comp Metabolic Yqj292 GL UCOSE 117 mg/dL 05/27/2017 Comp Metabolic Vqi912 Cr eat 0.9 mg/dL 05/27/2017 Comp Metabolic Jvz957 eG FR 62 ml/min/1.73m2 05/27 Comp Metabolic Kmb778 BUN 25 mg/dL 05/27/2017 Comp Metabolic Ibb832 B/ C Ratio 26.6 Ratio 05/27/2017 Comp Metabolic Ufi768 CA LCIUM 9.5 mg/dL 05/27/2017 Comp Metabolic Nax752 AL K PHOS 73 U/L 05/27/2017 Comp Metabolic Dce530 T(SGOT) 18 U/L 05/27/2017 Comp Metabolic Ewp653 AL T(SGPT) 12 U/L 05/27/2017 Comp Metabolic Fuz302 BI LI T 0.5 mg/dL 05/27/2017 Comp Metabolic Ljm293 AL BUMIN 4.1 g/dL 05/27/2017 Comp Metabolic Olw036 TP RO 7.1 g/dL 05/27/2017 Comp Metabolic Inx552 GL OB 3.0 g/dL 05/27/2017 Comp Metabolic Wor088 A/ G Ratio 1.3 Ratio 05/27/2017 Comp Metabolic Kfj897 Os mo 281 mOsmo 05/27/2017 Free T4 Ljk928 FREE T4 0.91 ng/dL 05/27/2017 Pt Pop4043 PT 29.2 seconds 04/16/2017 Pt Osn5157 INR 2.7 04/16/2017 Pt Zxd9840 Low Intensity - 1.5-2.0 04/16/2017 Pt Sjr3717 Mod intensity - 2.0-3.0 04/16/2017 Pt Heo4135 Hi intensity - 3.0-4.0 04/16/2017 Pt Lch4738 PT 30.7 seconds 03/31/2017 Pt Ahx4685 INR 2.9 03/31/2017 Pt Hta8197 Low Intensity - 1.5-2.0 03/31/2017 Pt Tea0475 Mod intensity - 2.0-3.0 03/31/2017 Pt Mry2699 Hi intensity - 3.0-4.0 03/31/2017 Pt Dbm4058 PT 21.3 seconds 03/26/2017 Pt Ksg3000 INR 1.9 03/26/2017 Pt Cdq5552 Low Intensity - 1.5-2.0 03/26/2017 Pt Uot2184 Mod intensity - 2.0-3.0 03/26/2017 Pt Amn2965 Hi intensity - 3.0-4.0 03/26/2017 Pt Vwa1847 PT 19.8 seconds 03/22/2017 Pt Dwr7631 INR 1.7 03/22/2017 Pt Zdq5514 Low Intensity - 1.5-2.0 03/22/2017 Pt Wmk3488 Mod intensity - 2.0-3.0 03/22/2017 Pt Dqf2788 Hi intensity - 3.0-4.0 03/22/2017 Pt Njh0363 PT 15.6 seconds 03/19/2017 Pt Qfl1149 INR 1.3 03/19/2017 Pt Mfe7495 Low Intensity - 1.5-2.0 03/19/2017 Pt Hnn2661 Mod intensity - 2.0-3.0 03/19/2017 Pt Swx2300 Hi intensity - 3.0-4.0 03/19/2017 Pt Zgs0444 PT 13.7 seconds 03/15/2017 Pt Uba3900 INR 1.1 03/15/2017 Pt Dpk8819 Low Intensity - 1.5-2.0 03/15/2017 Pt Ryl9627 Mod intensity - 2.0-3.0 03/15/2017 Pt Jnb1561 Hi intensity - 3.0-4.0 03/15/2017 Pt Mvm8042 PT 25.8 seconds 01/28/2017 Pt Bdn9974 INR 2.4 01/28/2017 Pt Ama7460 Low Intensity - 1.5-2.0 01/28/2017 Pt Gsh1352 Mod intensity - 2.0-3.0 01/28/2017 Pt Soa1983 Hi intensity - 3.0-4.0 01/28/2017 %Hba1C Dpl462 % HbA1c 84949-3 6.4 % 10/23/2016 %Hba1C Opv566 Gluc Ave 137 mg/dL 10/23/2016 Comp Metabolic Swu341 NA 138 mEq/L 10/23/2016 Comp Metabolic Tkr701 K 3.4 mEq/L 10/23/2016 Comp Metabolic Acq359 CL 100 mEq/L 10/23/2016 Comp Metabolic Uri317 CO2 30.0 mEq/L 10/23/2016 Comp Metabolic Jbh495 AN ION GAP 11 10/23/2016 Comp Metabolic Nwr978 GL UCOSE 139 mg/dL 10/23/2016 Comp Metabolic Wfj342 Cr eat 0.9 mg/dL 10/23/2016 Comp Metabolic Fhj617 eG FR 62 ml/min/1.73m2 10/23 Comp Metabolic Aor124 BUN 22 mg/dL 10/23/2016 Comp Metabolic Wvm473 B/ C Ratio 23.4 Ratio 10/23/2016 Comp Metabolic Swt166 CA LCIUM 8.7 mg/dL 10/23/2016 Comp Metabolic Ukq556 AL K PHOS 66 U/L 10/23/2016 Comp Metabolic Oap169 T(SGOT) 20 U/L 10/23/2016 Comp Metabolic Gzb267 AL T(SGPT) 10 U/L 10/23/2016 Comp Metabolic Jyp307 BI LI T 0.5 mg/dL 10/23/2016 Comp Metabolic Yix836 AL BUMIN 3.5 g/dL 10/23/2016 Comp Metabolic Fsq306 TP RO 6.3 g/dL 10/23/2016 Comp Metabolic Djv420 GL OB 2.8 g/dL 10/23/2016 Comp Metabolic Esx042 A/ G Ratio 1.3 Ratio 10/23/2016 Comp Metabolic Ajs894 Os mo 281 mOsmo 10/23/2016 Pt Cdw0773 PT 26.8 seconds 10/23/2016 Pt Zom3180 INR 2.7 10/23/2016 Pt Dup4252 Low Intensity - 1.5-2.0 10/23/2016 Pt Aqi4417 Mod intensity - 2.0-3.0 10/23/2016 Pt Sye9575 Hi intensity - 3.0-4.0 10/23/2016 Pt Otm8173 PT 28.3 seconds 09/25/2016 Pt Ftq0287 INR 2.8 09/25/2016 Pt Hrz6388 Low Intensity - 1.5-2.0 09/25/2016 Pt Gwu0422 Mod intensity - 2.0-3.0 09/25/2016 Pt Iab4505 Hi intensity - 3.0-4.0 09/25/2016 Metabolic Ord15 [...] Metabolic Ord15 CALCIUM 8.8 mg/dL 09/25/2016 Pt Mzc3927 PT 30.6 seconds 09/11/2016 Pt Dzk4031 INR 3.2 09/11/2016 Pt Gvg7135 Low Intensity - 1.5-2.0 09/11/2016 Pt Hxu2921 Mod intensity - 2.0-3.0 09/11/2016 Pt Moa0644 Hi intensity - 3.0-4.0 09/11/2016 Comp Metabolic Tmb397 NA 138 mEq/L 09/11/2016 Comp Metabolic Hgk268 K 4.4 mEq/L 09/11/2016 Comp Metabolic Qmf223 CL 103 mEq/L 09/11/2016 Comp Metabolic Cev193 CO2 31.0 mEq/L 09/11/2016 Comp Metabolic Wtr580 AN ION GAP 8 09/11/2016 Comp Metabolic Hvj315 GL UCOSE 146 mg/dL 09/11/2016 Comp Metabolic Jul072 Cr eat 1.0 mg/dL 09/11/2016 Comp Metabolic Rfh777 eG FR 60 ml/min/1.73m2 09/11 Comp Metabolic Hcm639 BUN 16 mg/dL 09/11/2016 Comp Metabolic Upw737 B/ C Ratio 16.5 Ratio 09/11/2016 Comp Metabolic Vgd663 CA LCIUM 8.7 mg/dL 09/11/2016 Comp Metabolic Ayg620 AL K PHOS 52 U/L 09/11/2016 Comp Metabolic Sak898 T(SGOT) 19 U/L 09/11/2016 Comp Metabolic Yol567 AL T(SGPT) 11 U/L 09/11/2016 Comp Metabolic Tzo002 BI LI T 0.7 mg/dL 09/11/2016 Comp Metabolic Oue402 AL BUMIN 3.3 g/dL 09/11/2016 Comp Metabolic Lfd388 TP RO 5.8 g/dL 09/11/2016 Comp Metabolic Eok844 GL OB 2.5 g/dL 09/11/2016 Comp Metabolic Ajx328 A/ G Ratio 1.3 Ratio 09/11/2016 Comp Metabolic Xqo163 Os mo 280 mOsmo 09/11/2016 C-Reactive Protein Qnt Crqnt CRP 0.1 mg/dl 08/21/2016 Comp Metabolic Koo714 NA 139 mEq/L 08/21/2016 Comp Metabolic Gmj708 K 4.1 mEq/L 08/21/2016 Comp Metabolic Pqi510 CL 102 mEq/L 08/21/2016 Comp Metabolic Uei620 CO2 30.0 mEq/L 08/21/2016 Comp Metabolic Mps583 AN ION GAP 11 08/21/2016 Comp Metabolic Trd124 GL UCOSE 148 mg/dL 08/21/2016 Comp Metabolic Vxh212 Cr eat 1.0 mg/dL 08/21/2016 Comp Metabolic Zce805 eG FR 55 ml/min/1.73m2 08/21 Comp Metabolic Ibq875 BUN 21 mg/dL 08/21/2016 Comp Metabolic Jdx521 B/ C Ratio 20.2 Ratio 08/21/2016 Comp Metabolic Yyv626 CA LCIUM 9.4 mg/dL 08/21/2016 Comp Metabolic Zuf329 AL K PHOS 63 U/L 08/21/2016 Comp Metabolic Aqs958 T(SGOT) 23 U/L 08/21/2016 Comp Metabolic Xkc219 AL T(SGPT) 16 U/L 08/21/2016 Comp Metabolic Kpg772 BI LI T 0.6 mg/dL 08/21/2016 Comp Metabolic Imr742 AL BUMIN 3.9 g/dL 08/21/2016 Comp Metabolic Yxm753 TP RO 6.8 g/dL 08/21/2016 Comp Metabolic Mkg552 GL OB 2.9 g/dL 08/21/2016 Comp Metabolic Tkh252 A/ G Ratio 1.4 Ratio 08/21/2016 Comp Metabolic Ywf971 Os mo 283 mOsmo 08/21/2016 Sed Rate Ord21 ESR 16 mm/hr 08/21/2016 Pt Fpz6280 PT 27.2 seconds 08/21/2016 Pt Kba3878 INR 2.7 08/21/2016 Pt Icz7755 Low Intensity - 1.5-2.0 08/21/2016 Pt Mga4095 Mod intensity - 2.0-3.0 08/21/2016 Pt Ahs7249 Hi intensity - 3.0-4.0 08/21/2016 Magnesium Ord90 Mag 1.9 mg/dL 08/21/2016 Pt Lbr1142 PT 25.9 seconds 06/17/2016 Pt Bul5502 INR 2.5 06/17/2016 Pt Zvc5392 Low Intensity - 1.5-2.0 06/17/2016 Pt Ivr7610 Mod intensity - 2.0-3.0 06/17/2016 Pt Ivq1446 Hi intensity - 3.0-4.0 06/17/2016 Tsh Ord6 hTSH II 2.13 uIU/mL 06/08/2016 Free T4 Dzq754 FREE T4 0.79 ng/dL 06/08/2016 Cbc With [...] 26.8 pg 06/08/2016 Cbc With Differential Ord2 [place]% 12.0 % 06/08/2016 Cbc With Differential Ord2 [...] 1.40 K/ul 06/08/2016 Cbc With Differential Ord2 [place] ABS# 0.7 K/ul 06/08/2016 Cbc With Differential Ord2 Eos ABS# 0.3 K/ul 06/08/2016 Cbc With Differential Ord2 Baso ABS# 0.1 K/ul 06/08/2016 %Hba1C Nvy360 % HbA1c 80201-6 6.2 % 06/08/2016 %Hba1C Mmr735 Gluc Ave 131 mg/dL 06/08/2016 Comp Metabolic Jru965 NA 138 mEq/L 06/08/2016 Comp Metabolic Qkt650 K 3.9 mEq/L 06/08/2016 Comp Metabolic Zal840 CL 105 mEq/L 06/08/2016 Comp Metabolic Gnr798 CO2 27.0 mEq/L 06/08/2016 Comp Metabolic Tba719 AN ION GAP 10 06/08/2016 Comp Metabolic Wlo890 GL UCOSE 127 mg/dL 06/08/2016 Comp Metabolic Kyg740 Cr eat 1.0 mg/dL 06/08/2016 Comp Metabolic Iat618 eG FR 59 ml/min/1.73m2 06/08 Comp Metabolic Vlt541 BUN 19 mg/dL 06/08/2016 Comp Metabolic Otf203 B/ C Ratio 19.4 Ratio 06/08/2016 Comp Metabolic Zzf869 CA LCIUM 9.2 mg/dL 06/08/2016 Comp Metabolic Scr324 AL K PHOS 77 U/L 06/08/2016 Comp Metabolic Ydy449 T(SGOT) 19 U/L 06/08/2016 Comp Metabolic Ghw659 AL T(SGPT) 13 U/L 06/08/2016 Comp Metabolic Azz446 BI LI T 0.5 mg/dL 06/08/2016 Comp Metabolic Bhm827 AL BUMIN 3.8 g/dL 06/08/2016 Comp Metabolic Fmh874 TP RO 6.6 g/dL 06/08/2016 Comp Metabolic Yoy532 GL OB 2.8 g/dL 06/08/2016 Comp Metabolic Ggp336 A/ G Ratio 1.4 Ratio 06/08/2016 Comp Metabolic Nwz143 Os mo 280 mOsmo 06/08/2016 Pt Qxg7147 PT 36.1 seconds 06/08/2016 Pt Aqy6578 INR 3.9 06/08/2016 Pt Tid6392 Low Intensity - 1.5-2.0 06/08/2016 Pt Qxb3453 Mod intensity - 2.0-3.0 06/08/2016 Pt Urw1880 Hi intensity - 3.0-4.0 06/08/2016 Lipid Ord30 CHOL 149 mg/dL 06/08/2016 Lipid Ord30 HDL 46.0 mg/dl 06/08/2016 Lipid Ord30 TRIG 279 mg/dL 06/08/2016 Lipid Ord30 LDL 47 mg/dL 06/08/2016 Lipid Ord30 C/HDL 3.2 Ratio 06/08/2016 Pt Gsf1066 PT 30.9 seconds 02/12/2016 Pt Qbp2624 INR 3.2 02/12/2016 Pt Hmc3251 Low Intensity - 1.5-2.0 02/12/2016 Pt Cyf0006 Mod intensity - 2.0-3.0 02/12/2016 Pt Qql6223 Hi intensity - 3.0-4.0 02/12/2016 Free T4 Xic323 FREE T4 1.24 ng/dL 09/27/2015 %Hba1C Wwo085 % HbA1c 50920-2 6.4 % 09/27/2015 %Hba1C Ecn676 Gluc Ave 137 mg/dL 09/27/2015 Tsh Ord6 hTSH II 0.37 uIU/mL 09/27/2015 Pt Bmb9947 PT 26.2 seconds 09/27/2015 Pt Qgy3682 INR 2.5 09/27/2015 Pt Wej6733 Low Intensity - 1.5-2.0 09/27/2015 Pt Ugd2760 Mod intensity - 2.0-3.0 09/27/2015 Pt Bxe2174 Hi intensity - 3.0-4.0 09/27/2015 Pt Ovr3928 PT 27.6 seconds 2015 Pt Haj5460 INR 2.7 2015 Pt Lzb3641 Low Intensity - 1.5-2.0 2015 Pt Inr8060 Mod intensity - 2.0-3.0 2015 Pt Bzz4436 Hi intensity - 3.0-4.0 2015 %Hba1C Noj756 % HbA1c 08499-3 6.1 % 06/11/2015 %Hba1C Rps983 Gluc Ave 128 mg/dL 06/11/2015 Cbc With [...] Ord2 RDW 15.8 % 06/10/2015 Comp Metabolic Zuk921 NA 139 mEq/L 06/10/2015 Comp Metabolic Ssc128 K 4.1 mEq/L 06/10/2015 Comp Metabolic Tnn291 CL 105 mEq/L 06/10/2015 Comp Metabolic Dic861 CO2 27.0 mEq/L 06/10/2015 Comp Metabolic Jgs655 AN ION GAP 11 06/10/2015 Comp Metabolic Yea785 GL UCOSE 127 mg/dL 06/10/2015 Comp Metabolic Qba978 Cr eat 1.0 mg/dL 06/10/2015 Comp Metabolic Puf116 eG FR 59 ml/min/1.73m2 06/10 Comp Metabolic Mjo206 BUN 21 mg/dL 06/10/2015 Comp Metabolic Ija635 B/ C Ratio 21.2 Ratio 06/10/2015 Comp Metabolic Hqf042 CA LCIUM 9.2 mg/dL 06/10/2015 Comp Metabolic Hvt517 AL K PHOS 87 U/L 06/10/2015 Comp Metabolic Ryi063 T(SGOT) 20 U/L 06/10/2015 Comp Metabolic Zin641 AL T(SGPT) 17 U/L 06/10/2015 Comp Metabolic Rte355 BI LI T 0.4 mg/dL 06/10/2015 Comp Metabolic Vxp355 AL BUMIN 4.1 g/dL 06/10/2015 Comp Metabolic Sqf523 TP RO 7.2 g/dL 06/10/2015 Comp Metabolic Sfx029 GL OB 3.1 g/dL 06/10/2015 Comp Metabolic Lnk146 A/ G Ratio 1.3 Ratio 06/10/2015 Comp Metabolic Lfp990 Os mo 282 mOsmo 06/10/2015 Tsh Ord6 hTSH II 0.86 uIU/mL 06/10/2015 Lipid Ord30 CHOL 161 mg/dL 06/10/2015 Lipid Ord30 HDL 49.0 mg/dl 06/10/2015 Lipid Ord30 TRIG 208 mg/dL 06/10/2015 Lipid Ord30 LDL 70 mg/dL 06/10/2015 Lipid Ord30 C/HDL 3.3 Ratio 06/10/2015 Pt Ply4853 PT 25.0 seconds 04/09/2015 Pt Acg8989 INR 2.4 04/09/2015 Pt Kii3558 Low Intensity - 1.5-2.0 04/09/2015 Pt Njr5976 Mod intensity - 2.0-3.0 04/09/2015 Pt Okb2383 Hi intensity - 3.0-4.0 04/09/2015 Free T4 Sda185 FREE T4 1.05 ng/dL 01/22/2015 Pt Unu7970 PT 27.2 seconds 01/22/2015 Pt Ydf2816 INR 2.6 01/22/2015 Pt Qne5480 Low Intensity - 1.5-2.0 01/22/2015 Pt Skr2059 Mod intensity - 2.0-3.0 01/22/2015 Pt Pck1125 Hi intensity - 3.0-4.0 01/22/2015 Cbc With [...] Differential Ord2 RDW 15.2 % 01/22/2015 B12 Gxt761 B12 402.00 pg/ml 01/22/2015 Tsh Ord6 hTSH II 0.65 uIU/mL 01/22/2015 Lipid Ord30 CHOL 166 mg/dL 01/22/2015 Lipid Ord30 HDL 48.0 mg/dl 01/22/2015 Lipid Ord30 TRIG 264 mg/dL 01/22/2015 Lipid Ord30 LDL 65 mg/dL 01/22/2015 Lipid Ord30 C/HDL 3.5 Ratio 01/22/2015 Comp Metabolic Spl902 NA 138 mEq/L 01/22/2015 Comp Metabolic Zey948 K 4.1 mEq/L 01/22/2015 Comp Metabolic Fkp708 CL 104 mEq/L 01/22/2015 Comp Metabolic Dle795 CO2 29.0 mEq/L 01/22/2015 Comp Metabolic Sjv672 AN ION GAP 9 01/22/2015 Comp Metabolic Sqm754 GL UCOSE 106 mg/dL 01/22/2015 Comp Metabolic Ouj030 Cr eat 0.9 mg/dL 01/22/2015 Comp Metabolic Kmg574 eG FR 63 ml/min/1.73m2 01/22 Comp Metabolic Sal608 BUN 21 mg/dL 01/22/2015 Comp Metabolic Jzy631 B/ C Ratio 22.3 Ratio 01/22/2015 Comp Metabolic Zjs638 CA LCIUM 9.4 mg/dL 01/22/2015 Comp Metabolic Wkv977 AL K PHOS 83 U/L 01/22/2015 Comp Metabolic Jkr269 T(SGOT) 23 U/L 01/22/2015 Comp Metabolic Nfx958 AL T(SGPT) 18 U/L 01/22/2015 Comp Metabolic Pel778 BI LI T 0.8 mg/dL 01/22/2015 Comp Metabolic Lfv732 AL BUMIN 4.2 g/dL 01/22/2015 Comp Metabolic Zcm761 TP RO 7.3 g/dL 01/22/2015 Comp Metabolic Oeu246 GL OB 3.1 g/dL 01/22/2015 Comp Metabolic Son266 A/ G Ratio 1.4 Ratio 01/22/2015 Comp Metabolic Tnl815 Os mo 279 mOsmo 01/22/2015 Review of [...] lips 09/23/2017 None Full Exam - General 1995 Ears/Nose/Throat lips/teeth/gingiva Overall: normal dentition 09/23/2017 None [...] Procedure Codes Date THER/PROPH/DIAG INJ SC/IM CPT-4: 24584 09/02/2018 TRIAMCINOLONE ACET I [place] NOS CPT-4: J3301 09/02/2018 URINALYSIS NONAUTO W /O SCOPE CPT-4: 85922 03/05/2017 Vital Signs Date Vital 09/02/2018 Blood Pressure 1: 128/72 Code: 8480-6 BMI: 38.2 Code: 69964-9 Heart Rate 1: 80 bpm Height: 5'1" SpO2: 98% Weight: 202 lbs 04/14/2018 Blood Pressure 1: 116/78 Code: 8480-6 BMI: 41.6 Code: 25875-2 Heart Rate 1: 72 bpm Height: 5'1" SpO2: 98% Weight: 220 lbs 01/18/2018 Blood Pressure 1: 132/74 Code: 8480-6 BMI: 43.5 Code: 12149-2 Heart Rate 1: 70 bpm Height: 5'1" SpO2: 97% Weight: 230 lbs 01/04/2018 Blood Pressure 1: 134/76 Code: 8480-6 BMI: 42.7 Code: 55654-9 Heart Rate 1: 83 bpm Height: 5'1" SpO2: 98% Weight: 226 lbs 09/23/2017 Blood Pressure 1: 124/76 Code: 8480-6 BMI: 42.3 Code: 49760-7 Heart Rate 1: 94 bpm Height: 5'1" SpO2: 96% Weight: 224 lbs 05/27/2017 Blood Pressure 1: 146/78 Code: 8480-6 BMI: 41.4 Code: 14300-8 Heart Rate 1: 85 bpm Height: 5'1" SpO2: 98% Weight: 219 lbs 02/24/2017 Blood Pressure 1: 138/66 Code: 8480-6 BMI: 41.4 Code: 74960-4 Heart Rate 1: 78 bpm Height: 5'1" SpO2: 97% Weight: 219 lbs 11/02/2016 Blood Pressure 1: 144/72 Code: 8480-6 BMI: 46.1 Code: 25525-7 Heart Rate 1: 78 bpm Height: 5'1" SpO2: 98% Weight: 244 lbs 09/30/2016 Blood Pressure 1: 130/76 Code: 8480-6 BMI: 45.0 Code: 21236-5 Heart Rate 1: 86 bpm Height: 5'1" SpO2: 98% Weight: 238 lbs 09/10/2016 Blood Pressure 1: 136/68 Code: 8480-6 BMI: 46.3 Code: 11106-5 Heart Rate 1: 83 bpm Height: 5'1" SpO2: 98% Weight: 245 lbs 08/20/2016 Blood Pressure 1: 142/78 Code: 8480-6 BMI: 45.3 Code: 38992-5 Heart Rate 1: 84 bpm Height: 5'1" SpO2: 99% Weight: 240 lbs 06/08/2016 Blood Pressure 1: 134/76 Code: 8480-6 BMI: 44.2 Code: 73305-0 Heart Rate 1: 86 bpm Height: 5'1" SpO2: 96% Weight: 234 lbs 04/02/2016 Blood Pressure 1: 142/70 Code: 8480-6 BMI: 44.6 Code: 15151-4 Heart Rate 1: 78 bpm Height: 5'1" SpO2: 97% Weight: 236 lbs 01/14/2016 Blood Pressure 1: 146/72 Code: 8480-6 BMI: 44.2 Code: 67962-4 Heart Rate 1: 86 bpm Height: 5'1" SpO2: 96% Weight: 234 lbs 10/02/2015 Blood Pressure 1: 158/76 Code: 8480-6 BMI: 44.2 Code: 10882-1 Heart Rate 1: 67 bpm Height: 5'1" SpO2: 97% Weight: 234 lbs 07/15/2015 Blood Pressure 1: 200/90 Code: 8480-6 Blood Pressure 1: 148/78 Code: 8480-6 BMI: 44.0 Code: 10334-1 Heart Rate 1: 89 bpm Height: 5'1" SpO2: 97% Weight: 233 lbs 06/10/2015 Blood Pressure 1: 140/82 Code: 8480-6 BMI: 44.0 Code: 46086-7 Heart Rate 1: 78 bpm Height: 5'1" [...] wearing crocs and there was a new arabic on the floor: her foot didn't move [...] Encounters Encounter Performer Loca tion Codes Date 47315 EST. PATIENT, LEVEL IV Diagnosis: Other acute sinusitis[ICD10: J01.80] Diagnosis: Other allergic rhinitis[ICD10: J30.89] [facility] CPT-4: 93229 09/02/2018 [id number] 90912 EST. P ATIENT, LEVEL IV Diagnosis: Essential (primary) hypertension[ICD10: I10] Diagnosis: Hypothyroidism, unspecified[ICD10: E03.9] Diagnosis: Impaired fasting glucose[ICD10: R73.01] Diagnosis: score caller (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[ICD10: Z79.01] Edna Almanza MD, [facility] CPT-4: 54086 04/14/2018 ([id number]) 44424 EST. P ATIENT, LEVEL III Diagnosis: Localized edema[ICD10: R60.0] Diagnosis: Gastro-esophageal reflux disease without esophagitis[ICD10: K21.9] Edna Almanza MD, [facility] CPT-4: 99766 01/18/2018 ([id number]) 60063 EST. P ATIENT, LEVEL IV Diagnosis: Gastro-esophageal reflux disease without esophagitis[ICD10: K21.9] Diagnosis: Localized edema[ICD10: R60.0] Diagnosis: Essential (primary) hypertension[ICD10: I10] Diagnosis: Hypothyroidism, unspecified[ICD10: E03.9] Diagnosis: Impaired fasting glucose[ICD10: R73.01] Edna Almanza MD, [facility] CPT-4: 77314 01/04/2018 ([id number]) 88624 EST. P ATIENT, LEVEL IV Diagnosis: Essential (primary) hypertension[ICD10: I10] Diagnosis: MCC (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[ICD10: Z79.01] Diagnosis: Incisional hernia without obstruction or gangrene[ICD10: K43.2] Diagnosis: Right lower quadrant pain[ICD10: R10.31] Sarai Almanza MD, [facility] CPT-4: 91182 09/23/2017 ([id number]) 53145 EST. P ATIENT, LEVEL IV Diagnosis: Essential (primary) hypertension[ICD10: I10] Diagnosis: Mixed hyperlipidemia[ICD10: E78.2] Diagnosis: Hypothyroidism, unspecified[ICD10: E03.9] Diagnosis: Impaired fasting glucose[ICD10: R73.01] Diagnosis: MCC (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[ICD10: Z79.01] Edna Almanza MD, [facility] CPT-4: 67385 05/27/2017 98988 EST. PATIENT, LEVEL III Diagnosis: Pain in right hip[ICD10: M25.551] Nata Almanza MD, [facility] CPT-4: 36183 02/24/2017 ([id number]) 55131 EST. P ATIENT, LEVEL IV Diagnosis: Essential (primary) hypertension[ICD10: I10] Diagnosis: Localized edema[ICD10: R60.0] Diagnosis: Pain in right hip[ICD10: M25.551] Sarai Almanza MD, [facility] CPT-4: 41537 11/02/2016 ([id number]) 59348 EST. P ATIENT, LEVEL IV Diagnosis: Essential (primary) hypertension[ICD10: I10] Diagnosis: Localized edema[ICD10: R60.0] Sarai Almanza MD, [facility] CPT-4: 54173 09/30/2016 14790 EST. PATIENT, LEVEL IV Diagnosis: Localized edema[ICD10: R60.0] Diagnosis: Pain in joints of left hand[ICD10: M25.542] Diagnosis: Pain in joints of right hand[ICD10: M25.541] Nata Almanza MD, [facility] CPT-4: 67836 09/10/2016 49997 EST. PATIENT, LEVEL IV Diagnosis: Localized edema[ICD10: R60.0] Diagnosis: Pain in joints of left hand[ICD10: M25.542] Diagnosis: Pain in joints of right hand[ICD10: M25.541] Diagnosis: Other fatigue[ICD10: R53.83] Nata Almanza MD, [facility] CPT-4: 07323 08/20/2016 91698 EST. PATIENT, LEVEL IV Diagnosis: Essential (primary) hypertension[ICD10: I10] Diagnosis: Other functional consultant (current) drug therapy[ICD10: Z79.899] Diagnosis: Tinnitus, bilateral[ICD10: H93.13] Nata Almanza MD, [facility] CPT-4: 64171 06/08/2016 13694 EST. PATIENT, LEVEL IV Diagnosis: Other allergic rhinitis[ICD10: J30.89] Diagnosis: Acute laryngopharyngitis[ICD10: J06.0] Nata Almanza MD, [facility] CPT-4: 64025 04/02/2016 31507 EST. PATIENT, LEVEL IV Diagnosis: Left upper quadrant pain[ICD10: R10.12] Nata Almanza MD, [facility] CPT-4: 62602 01/14/2016 63913 EST. PATIENT, LEVEL IV Diagnosis: Pain in left shoulder[ICD10: M25.512] Diagnosis: Body mass index (BMI) 40.0-44.9, adult[ICD10: Z68.41] [facility] CPT-4: 90134 10/02/2015 05713 EST. PATIENT, LEVEL IV Diagnosis: Pain in left leg[ICD10: M79.605] Diagnosis: Other correction (current) drug therapy[ICD10: Z79.899] [facility] CPT-4: 81427 07/15/2015 ([id number]) 96259 EST. 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: Other correction (current) drug therapy[ICD10: Z79.899] Edna Almanza MD, [facility] CPT-4: 48260 06/10/2015 ([id number]) OFFICE [facility] - LEVEL 4 Diagnosis: ESSENTIAL HYPERTENSION[ICD9: 401.9] Diagnosis: HYPOTHYROIDISM[ICD9: 244.9] Diagnosis: ENCNTR LONG-RX USE NEC[ICD9: V58.69] Diagnosis: HYPERLIPIDEMIA[ICD9: 272.4] Diagnosis: Vitamin B12 deficiency[ICD9: 266.2] Diagnosis: Status post gastric surgery[ICD9: V45.89] Diagnosis: Snoring[ICD9: 786.09] [facility] CPT-4: 68467 01/22/2015 Plan of Care Planned Activity Notes [...] allergy spray. 09/02/2018 Appointment: Nata Hsu WPtel: [phone] [facility] (15 min) Moderate 09/02/2018 Patient Education: [...] Hgb A1C 04/14/2018 Appointment: Edna Douglas WPtel: [phone] (15 min) Moderate 04/14/2018 Patient Education: [...] to further attempt to reduce peripheral edema. EAYC-cqbaosvb-vhjvfyuz prilosec BID and carafate QID -discussed low spice, low acidic diet 01/18/2018 Appointment: Edna Douglas WPtel: [phone] (15 min) Moderate 01/18/2018 Patient Education: [...] of control. 01/04/2018 Appointment: Edna Douglas WPtel: [address] [place], [place] [phone] (30 min) [facility] 01/04/2018 Patient Education: Patient Medication Summary Completed 01/04/2018 Care Plan: SCREENINGMAMMOGRAPHYDIGITAL LOINC : 24622-2 Pending 01/04/2018 Visit Plan: Abdominal hernia - not able to be taken to surgery by local providers and pt has been seen at [facility] and that surgeon [...] home. 09/23/2017 [phone] ([facility] min) Moderate 09/23/2017 Patient Education: [...] medications. 05/27/2017 [phone] (30 min) Complex 05/27/2017 Patient Education: [...] [place]. 02/24/2017 [facility]ment[phone] [place] (30 min) Complex 02/24/2017 Patient [...] [place]. 11/02/2016 App[facility]ment: [phone] [place] (15 min) Moderate 11/02/2016 Patient Education: [...] peripheral edema. 09/30/2016 Appointment: Sarai Almanza WPtel: [facility] (15 min) Moderate 09/30/2016 Patient Education: Patient [...] peripheral edema. 09/10/2016 Appointment: Nata Hsu WPtel: [facility] [address] (30 min) Complex 09/10/2016 Patient Education: [...] peripheral edema. 08/20/2016 Appointment: Nata Hsu WPtel: [facility] [address] (30 min) Complex 08/20/2016 Patient Education: Patient Medication Summary Completed 08/20/2016 Referral: Otf Lee [address] Referral Initiated 07/02/2016 Visit Plan: Chronic Anticoagulant [...] 06/08/2016 Care Plan: Referral Order SNOMED-CT : [id number] Pending 06/08/2016 Visit Plan: URI - Pt [...] allergy spray. 04/02/2016 Appointment: [facility] Hsu [facility]Ptel[facility] [place] (30 min) Complex 04/02/2016 Patient [...] pain 01/14/2016 Appointment: Edna Douglas [facility]Ptel[phone] [place] (30 min) Complex 01/14/2016 Patient Education: Patient Medication Summary Completed 01/14/2016 Patient Education: Obesity Completed 01/14/2016 Care Plan: BMI Above normal followup DAVID F-MGMT EDUC & TRAIN 1 PT Pending 10/24/2015 Care Plan: X-RAY EXAM OF SHOULDER LOINC : 07862-5 Pending 10/24/2015 Visit Plan: Left shoulder pain [...] check. 10/02/2015 App[facility]ment: [phone] (15 min) Moderate 10/02/2015 Patient Education: [...] Summary Completed 06/11/2015 Visit Plan: Hypertension - donita ramirez - [...] ses Completed 06/10/2015 Appointment: Sarai Almanza WPtel: [address] [place], [place] [phone] (15 min) Moderate 04/22/2015 [...] have surgical fixation - planning occurring at [facility]. Snoring - Sleep apnea symptoms with [...] to medications. 01/22/2015 Appointment: Sarai Almanza WPtel: [facility] [place] (S) New Patient 01/22/2015 Patient Education: Patient Medication Summary Completed 01/22/2015 Patient Education: Hypertension Completed 01/22/2015 Referral: Otf Lee [address] Referral Initiated Instructions Comment steroid shot today [...] spray in the nasal steroid allergy spray. CONTINUE LASIX NE EDED FOR SWELLING CHECK [...] to further attempt to reduce peripheral edema. KKZC-zocaadff-zjsanehq prilosec BID and carafate QID -discussed low [...] providers and pt has been seen at [facility] and that surgeon felt like Kat would be better served by Dr. Betancur at [facility]. I have recommended a referral to dr. [...] have surgical fixation - planning occurring at [facility]. Snoring - Sleep apnea symptoms with [...]
--- OUTSIDE RECORDS SUMMARY | 2020-01-16 23:12 | XMS REPORT | CCD ---
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 [place] Medicare Part B [id number] 2017 Unknown Family history Father Diagnosis Age At Onset Hyperlipidemia Unknown Heart Attack Unknown Mother Diagnosis Age At Onset Arthritis Unknown Social History Social History Element Codes Description Effective Dates Marital status Unknown M arried Nathan 09/30/2016 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 Number of children Unknown 3 01/22/[address]: 255181678 Never smoker 01/22/[address]: 077742687 Never drinks alcohol 01/22/2015 Allergies, Adverse Reactions, Alerts Substance Reaction Codes Entered Date Inactivated Date Status * NO KNOWN DRUG ORIN RGIES Unknown 01/22/2015 No Inactive Date Active Past Medical History Illness Codes Condition Status Onset Date Resolved Date Mixed hyperlipidemia ICD-9: 272.4 ICD-10: E78.2 Active 06/09/2015 Unknown Hypothyroidism, unsp ecified ICD-9: 244.9 ICD-10: E03.9 Active 05/27/2017 Unknown 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 ICD-9: V58.61 [...] 780.79 ICD-10: R53.83 Active 08/20/2016 Unknown Other care home (cur rent) drug therapy ICD-9: V58.69 [...] ecified ICD-9: 244.9 ICD-10: E03.9 05/27/2017 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 ICD-9: 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.61 [...] ICD-9: 780.79 ICD-10: R53.83 08/20/2016 Active Other care home (cur rent) drug therapy ICD-9: V58.69 [...] E R 20 mEq tablet,extended release RxNorm: 367835 1 Tablet(s) PO daily 10/03/2018 01/30/2019 Active Carafate 1 gram tablet RxNorm: 502547 TAKE ONE TABLET BY MOUTH BEFORE MEALS AN D AT BEDTIME 09/26/2018 11/16/2018 Active Plavix 75 mg tablet RxNorm: 872701 TAKE ONE TABLET BY MOUTH DAILY 09/02/2018 02/28/2019 Ac tive prednisone 10 mg tablet RxNorm: 981740 Tablet(s) PO 09/02/2018 No Stop Date Active 60,60,50,50,40,40,30,30,20,20,10,10 Synthroid 125 mcg ta blet RxNorm: 338640 1 Tablet(s) PO daily 09/02/2018 08/27/2019 Active potassium chloride E R 20 mEq tablet,extended release RxNorm: 656964 1 Tablet(s) PO daily 09/02/2018 09/01/2018 Inactive potassium chloride E R 20 mEq tablet,extended release RxNorm: 404258 1 Tablet(s) PO daily 09/02/2018 10/02/2018 Inactive Synthroid 125 mcg ta blet RxNorm: 951638 1 Tablet(s) PO daily 09/02/2018 09/01/2018 Inactive Keflex 500 mg capsule RxNorm: 373659 1 Capsule(s) PO TID 09/02/2018 09/08/2018 Inactive Kenalog 40 mg/mL maxine pension for injection RxNorm: 0678976 Milliliter(s) Inj 09/02/2018 09/02/2018 In active Lipitor 40 mg tablet RxNorm: 169417 TAKE ONE TABLET BY MOUTH DAILY 07/29/2018 07/23/2019 Ac tive Coumadin 1 mg tablet RxNorm: 606457 TAKE ONE TABLET BY MOUTH DAILY 07/29/2018 10/26/2018 Ac tive Carafate 1 gram tablet RxNorm: 683630 TAKE ONE TABLET BY MOUTH BEFORE MEALS AN D AT BEDTIME 07/28/2018 09/17/2018 Inactive Coumadin 4 mg tablet RxNorm: 247221 2 Tablet(s) daily 07/11/2018 02/05/2019 Active Generi c For:COUMADIN 4MG 07/22/2017 8:58:26 AM Coumadin 5 mg tablet RxNorm: 709142 Tablet(s) TAKE 1 TABLET BY MOUTH DIRE CTED 07/08/2018 01/03/2019 Ac tive Generic For:COUMADIN 5MG TAB 03/21/2018 9:13:00 AM Coumadin 4 mg tablet RxNorm: 826506 Tablet(s) TAKE 1 TABLET BY MOUTH THREE T IMES PER WEEK (WEDNESDAY, WEDNESDAY AND WEDNESDAY) 07/08/2018 07/10/2018 Inactive Gene andre For:COUMADIN 4MG 07/22/2017 8:58:26 AM Coumadin 1 mg tablet RxNorm: 736744 1 Tablet(s) PO daily 07/08/2018 08/06/2018 Inactive venlafaxine ER 75 mg capsule,extended release 24 hr RxNorm: 828128 Capsule(s) TAKE 1 CAPSULE BY MOUTH ONCE DAILY 06/23/2018 06/17/2019 Active Generic For:*EFFEXOR XR 75MG 06/19/2017 12:23:45 PM sodium bicarbonate 6 50 mg tablet RxNorm: 108452 Tablet(s) TAKE 2 TABL ETS BY MOUTH TWICE DAILY 06/23/2018 12/19/2018 Active 12/20/2017 9:10:59 AM Coumadin 1 mg tablet RxNorm: 549603 1 Tablet(s) PO daily 06/17/2018 07/07/2018 Inactive Coumadin 1 mg tablet RxNorm: 351098 1 Tablet(s) PO daily 06/17/2018 06/16/2018 Inactive clonazepam 0.5 mg ta blet RxNorm: 299765 1 Tablet(s) PO BID 06/08/2018 11/04/2018 Active spironolactone 25 mg tablet RxNorm: 584089 TAKE 1 TABLET BY MOUT H EVERY DAY 05/18/2018 05/12/2019 Ac tive Generic For:*ALDACTONE 25MG 05/18/2018 8:57:50 AM Carafate 1 gram tablet RxNorm: 633888 TAKE ONE TABLET BY MOUTH BEFORE MEALS AN D AT BEDTIME 05/18/2018 07/12/2018 Inactive Generic For:CARAFATE 1GM 1 07/18/2017 8:38:28 AM Synthroid 137 mcg ta blet RxNorm: 722324 TAKE 1 TABLET BY MOUT H ONCE DAILY 05/18/2018 08/30/2018 In active Generic For:SYNTHROID 137MCG TAB 2017 8:57:54 AM allopurinol 300 mg t ablet RxNorm: 309347 TAKE 1 TABLET BY MOUT H ONCE DAILY. 04/18/2018 10/14/2018 Ac tive Generic For:ZYLOPRIM 300 MG TABLET 03/22 9:13:47 AM Lasix 20 mg tablet RxNorm: 891555 TAKE ONE TABLET BY MOUTH DAILY 04/18/2018 08/15/2018 In active Generic For:LASIX 20MG 04/18/2018 9:13: 50 AM Carafate 1 gram tablet RxNorm: 633628 TAKE ONE TABLET BY MOUTH BEFORE MEALS AN D AT BEDTIME 04/18/2018 05/17/2018 Inactive Generic For:CARAFATE 1GM 1 9:32:51 AM Coumadin 5 mg tablet RxNorm: 284721 TAKE 1 TABLET BY MOUTH DIRECTED 03/21/2018 07/07/2018 In active Generic For:COUMADIN 5MG TAB 03/21/2018 9:13:00 AM Carafate 1 gram tablet RxNorm: 946132 TAKE ONE TABLET BY MOUTH BEFORE MEALS AN D AT BEDTIME 03/21/2018 04/17/2018 Inactive Generic For:CARAFATE 1GM 1 9:14:24 AM Carafate 1 gram tablet RxNorm: 912519 1 Tablet(s) PO AC & HS 02/17/2018 03/20/2018 Inactive atenolol 100 mg tablet RxNorm: 411043 1 Tablet(s) PO daily 02/04/2018 09/01/2018 Inactive atenolol 50 mg tablet RxNorm: 052915 1 Tablet(s) PO daily 02/03/2018 02/03/2018 Inactive omeprazole 20 mg cap sean,delayed release RxNorm: 647863 1 Capsule(s) BID 01/21/2018 01/15/2019 Ac tive Generic For:PRILOSEC 20MG 07/22/2017 8:5 8:20 AM Carafate 1 gram tablet RxNorm: 840012 1 Tablet(s) PO AC & HS 01/21/2018 02/16/2018 Inactive Carafate 1 gram tablet RxNorm: 906136 1 Tablet(s) PO AC & HS 01/18/2018 01/20/2018 Inactive Carafate 1 gram tablet RxNorm: 770448 1 Tablet(s) PO AC & HS 01/18/2018 02/27/2018 Inactive Carafate 1 gram tablet RxNorm: 266516 1 Tablet(s) PO AC & HS TAKE ONE TABLET B Y MOUTH TWICE DAILY 01/18/2018 05/17/2018 Inactive Generic For:CARAFATE 1GM 0 12/20/2017 9:10:56 AM omeprazole 20 mg cap sean,delayed release RxNorm: 467761 Capsule(s) TAKE 1 CAP SEAN BY MOUTH EVERY DAY 01/17/2018 01/20/2018 Inactive Generic For:PRILOSEC 20MG 0 07/22/2017 8:58:20 AM omeprazole 20 mg cap sean,delayed release RxNorm: 400802 Capsule(s) TAKE 1 CAP SEAN BY MOUTH EVERY DAY 01/14/2018 01/16/2018 Inactive Generic For:PRILOSEC 20MG 07/22/2017 8:58:20 AM clonazepam 0.5 mg ta blet RxNorm: 343282 1 Tablet(s) PO BID 01/07/2018 06/05/2018 Inactive Plavix 75 mg tablet RxNorm: 324703 1 Tablet(s) PO daily 01/07/2018 07/05/2018 Inactive Carafate 1 gram tablet RxNorm: 898076 1 Tablet(s) PO AC & HS 01/04/2018 01/17/2018 Inactive Lasix 20 mg tablet RxNorm: 825645 TAKE ONE TABLET BY MOUTH DAILY 12/20/2017 04/17/2018 In active Generic For:LASIX 20MG 12/20/2017 9:11: 03 AM sodium bicarbonate 6 50 mg tablet RxNorm: 802276 TAKE 2 TABLETS BY JAVON TWICE DAILY 12/20/2017 06/17/2018 In active 12/20/2017 9:10:59 AM Carafate 1 gram tablet RxNorm: 751810 TAKE ONE TABLET BY MOUTH TWICE DAILY 12/20/2017 01/17/2018 In active Generic For:CARAFATE 1GM 12/20/2017 9:1 0:56 AM Synthroid 137 mcg ta blet RxNorm: 390885 TAKE 1 TABLET BY MOUT H ONCE DAILY 11/19/2017 05/17/2018 In active Generic For:SYNTHROID 137MCG TAB 2017 8:58:04 AM Detrol LA 4 mg capsu le,extended release RxNorm: 012320 TAKE 1 CAPSULE BY JAVON TH ONCE DAILY 10/20/2017 04/13/2018 Inactive Generic For:DETROL LA 4MG C AP 10/20/2017 9:01:56 AM allopurinol 300 mg t ablet RxNorm: 179206 TAKE 1 TABLET BY MOUT H ONCE DAILY. 10/20/2017 04/17/2018 In active Generic For:ZYLOPRIM 300 MG TABLET 07/2017 9:01:59 AM Coumadin 5 mg tablet RxNorm: 158775 1 Tablet(s) PO UD 10/01/2017 03/20/2018 Inactive cyclobenzaprine 5 mg tablet RxNorm: 354976 1 Tablet(s) PO TID as needed myscle spasm 09/23/2017 10/12/2017 Inactive Lipitor 40 mg tablet RxNorm: 916910 TAKE 1 TABLET BY MOUTH ONCE DAILY 09/20/2017 07/28/2018 In active Generic For:LIPITOR 40MG 09/20/2017 8:5 6:04 AM atenolol 100 mg tablet RxNorm: 104337 1 Tablet(s) PO daily 08/30/2017 02/03/2018 Inactive atenolol 50 mg tablet RxNorm: 078382 1 Tablet(s) PO daily 08/30/2017 08/30/2017 Inactive Lovenox 30 mg/0.3 mL subcutaneous syringe RxNorm: 383267 0.3 Milliliter(s) SQ Q12H 08/24/2017 09/06/2017 In active Lasix 20 mg tablet RxNorm: 041078 TAKE ONE TABLET BY MOUTH DAILY 08/23/2017 12/19/2017 In active Generic For:LASIX 20MG 08/21/2017 9:04: 27 AM Synthroid 137 mcg ta blet RxNorm: 757739 TAKE 1 TABLET BY MOUT H ONCE DAILY 08/23/2017 11/18/2017 In active Generic For:SYNTHROID 137MCG TAB 2017 9:04:30 AM Lovenox 30 mg/0.3 mL subcutaneous syringe RxNorm: 594743 0.3 Milliliter(s) SQ Q12H 08/10/2017 08/23/2017 In active clonazepam 0.5 mg ta blet RxNorm: 109969 1 Tablet(s) PO BID 08/04/2017 12/30/2017 Inactive omeprazole 20 mg cap sean,delayed release RxNorm: 384652 TAKE 1 CAPSULE BY JAVON TH EVERY DAY 07/22/2017 01/13/2018 Inactive Generic For:PRILOSEC 20MG 07/22/2017 8: 58:20 AM Coumadin 4 mg tablet RxNorm: 493220 TAKE 1 TABLET BY MOUTH THREE TIMES PER W NOTTAWASEPPI POTAWATOMI (WEDNESDAY, WEDNESDAY AND WEDNESDAY) 07/22/2017 10/03/2018 Inactive Generic For:COUMADIN 4MG 07/22/2017 8:58:26 AM Coumadin 4 mg tablet RxNorm: 040302 TAKE 1 TABLET BY MOUTH THREE TIMES PER W NOTTAWASEPPI POTAWATOMI (WEDNESDAY, WEDNESDAY AND WEDNESDAY) 07/22/2017 02/16/2018 Inactive Generic For:COUMADIN 4MG 07/22/2017 8:58:26 AM sodium bicarbonate 6 50 mg tablet RxNorm: 660331 TAKE 2 TABLETS BY JAVON TH TWICE DAILY 06/22/2017 12/18/2017 In active 06/19/2017 12:23:30 PM venlafaxine ER 75 mg capsule,extended release 24 hr RxNorm: 461596 TAKE 1 CAPSULE BY MOUTH ONCE DAILY 06/22/2017 06/16/2018 Inactive Generic For:*EFFEXOR XR 75M G 06/19/2017 12:23:45 PM Coumadin 5 mg tablet RxNorm: 915270 1 Tablet(s) PO UD 06/01/2017 09/30/2017 Inactive Keflex 500 mg capsule RxNorm: 333158 1 Capsule(s) PO TID 05/27/2017 06/02/2017 Inactive Synthroid 137 mcg ta blet RxNorm: 703669 TAKE 1 TABLET BY MOUT H ONCE DAILY 05/24/2017 08/21/2017 In active Generic For:SYNTHROID 137MCG TAB 2016 8:55:59 AM Carafate 1 gram tablet RxNorm: 440167 TAKE ONE TABLET BY MOUTH TWICE DAILY 05/24/2017 12/19/2017 In active Generic For:CARAFATE 1GM 05/24/2017 8:5 5:54 AM spironolactone 25 mg tablet RxNorm: 361040 1 Tablet(s) PO daily 05/24/2017 05/17/2018 Inactive Detrol LA 4 mg capsu le,extended release RxNorm: 671160 1 Capsule(s) PO daily TAKE 1 CAPSULE BY MOUTH ONCE DAILY 05/10/2017 10/19/2017 Inactive Generic For:DETROL LA 4MG CAP 02/19/2017 2:36:00 PM Lasix 20 mg tablet RxNorm: 401394 TAKE ONE TABLET BY MOUTH DAILY 04/23/2017 08/20/2017 In active Generic For:LASIX 20MG 04/23/2017 9:04: 01 AM Coumadin 4 mg tablet RxNorm: 594316 TAKE 1 TABLET BY MOUTH THREE TIMES PER W NOTTAWASEPPI POTAWATOMI (WEDNESDAY, WEDNESDAY AND WEDNESDAY) 04/23/2017 07/21/2017 Inactive Generic For:COUMADIN 4MG 04/23/2017 9:04:05 AM allopurinol 300 mg t ablet RxNorm: 860283 TAKE 1 TABLET BY MOUT H ONCE DAILY. 04/23/2017 10/19/2017 In active Generic For:ZYLOPRIM 300 MG TABLET 08/2016 9:03:57 AM potassium chloride 2 0 mEq/15 mL oral liquid RxNorm: 649717 Milliliter(s) 30 Milliliter(s) (40mEq) PO daily 03/24/2017 07/21/2017 Inactive Lovenox 30 mg/0.3 mL subcutaneous syringe RxNorm: 130885 0.3 Milliliter(s) SQ Q12H 03/22/2017 03/26/2017 In active Lovenox 30 mg/0.3 mL subcutaneous syringe RxNorm: 021770 0.3 Milliliter(s) SQ Q12H 03/19/2017 03/20/2017 In active Lovenox 30 mg/0.3 mL subcutaneous syringe RxNorm: 715489 0.3 Milliliter(s) SQ Q12H 03/16/2017 03/18/2017 In active clonazepam 0.5 mg ta blet RxNorm: 420940 1 Tablet(s) PO BID 03/02/2017 10/03/2018 Inactive Lovenox 30 mg/0.3 mL subcutaneous syringe RxNorm: 939767 1 injection SQ BID do NOT take the night time dose the day before surgery, or the morning dose the day of surgery 03/01/2017 03/07/2017 Inactive Lovenox 30 mg/0.3 mL subcutaneous syringe RxNorm: 722493 1 injection SQ BID 03/01/2017 02/28/2017 In active Detrol LA 4 mg capsu le,extended release RxNorm: 899732 TAKE 1 CAPSULE BY JAVON TH ONCE DAILY 02/19/2017 05/09/2017 Inactive Generic For:DETROL LA 4MG C AP 02/19/2017 2:36:00 PM hydrocodone 5 mg-humberto taminophen 325 mg tablet RxNorm: 674390 1-2 Tablet(s) PO Q6 P RN 02/04/2017 No Stop Date Active Zetia 10 mg tablet RxNorm: 555688 TAKE 1 TABLET BY MOUTH DAILY 01/25/2017 04/13/2018 Inactive 01/23/2017 9:03:48 AM omeprazole 20 mg cap sean,delayed release RxNorm: 963080 TAKE 1 CAPSULE BY JAVON TH EVERY DAY 01/25/2017 07/21/2017 Inactive Generic For:PRILOSEC 20MG 01/23/2017 9: 03:45 AM Coumadin 4 mg tablet RxNorm: 153139 TAKE 1 TABLET BY MOUTH THREE TIMES PER W NOTTAWASEPPI POTAWATOMI (WEDNESDAY, WEDNESDAY AND WEDNESDAY) 01/25/2017 04/22/2017 Inactive Generic For:COUMADIN 4MG 01/23/2017 9:03:51 AM sodium bicarbonate 6 50 mg tablet RxNorm: 847053 TAKE 2 TABLETS BY JAVON TH TWICE DAILY 12/24/2016 06/21/2017 In active 12/24/2016 9:09:27 AM Lasix 20 mg tablet RxNorm: 638223 1 Tablet(s) PO daily 12/24/2016 04/22/2017 Inactive Synthroid 137 mcg ta blet RxNorm: 628349 TAKE 1 TABLET BY MOUT H ONCE DAILY 11/24/2016 05/22/2017 In active Generic For:SYNTHROID 137MCG TAB 2016 9:04:37 AM Coumadin 4 mg tablet RxNorm: 195983 TAKE 1 TABLET BY MOUTH THREE TIMES PER W NOTTAWASEPPI POTAWATOMI (WEDNESDAY, WEDNESDAY AND WEDNESDAY) 11/24/2016 01/22/2017 Inactive Generic For:COUMADIN 4MG 11/24/2016 9:04:41 AM hydrocodone 5 mg-humberto taminophen 325 mg tablet RxNorm: 394552 1-2 Tablet(s) PO Q6 P RN 11/17/2016 02/03/2017 In active Carafate 1 gram tablet RxNorm: 471154 TAKE ONE TABLET BY MOUTH TWICE DAILY 10/27/2016 05/23/2017 In active Generic For:CARAFATE 1GM 10/26/2016 8:3 9:42 AM allopurinol 300 mg t ablet RxNorm: 266157 Tablet(s) TAKE 1 TABL ET BY MOUTH ONCE DAILY. 10/26/2016 04/22/2017 Inactive Lipitor 40 mg tablet RxNorm: 495463 1 Tablet(s) PO daily 09/25/2016 09/19/2017 Inactive Coumadin 4 mg tablet RxNorm: 855349 TAKE 1 TABLET BY MOUTH THREE TIMES PER W NOTTAWASEPPI POTAWATOMI (WEDNESDAY, WEDNESDAY AND WEDNESDAY) 09/25/2016 11/23/2016 Inactive Generic For:COUMADIN 4MG 09/25/2016 8:55:58 AM Zetia 10 mg tablet RxNorm: 763185 1 Tablet(s) PO daily 09/25/2016 01/22/2017 Inactive gave 1 month of samples clonazepam 0.5 mg ta blet RxNorm: 254627 1 Tablet(s) PO BID 09/21/2016 10/03/2018 Inactive Lasix 20 mg tablet RxNorm: 793164 1 Tablet(s) PO daily 09/15/2016 12/23/2016 Inactive potassium chloride 2 0 mEq/15 mL oral liquid RxNorm: 008616 Milliliter(s) 30 Milliliter(s) (40mEq) PO daily 09/15/2016 01/12/2017 Inactive Lasix 20 mg tablet RxNorm: 496539 2 Tablet(s) PO daily 09/10/2016 09/12/2016 Inactive Lasix 20 mg tablet RxNorm: 182963 1 Tablet(s) PO daily 08/28/2016 08/30/2016 Inactive Lasix 20 mg tablet RxNorm: 128121 1 Tablet(s) PO daily 08/20/2016 08/22/2016 Inactive Detrol LA 4 mg capsu le,extended release RxNorm: 146256 TAKE 1 CAPSULE BY JAVON TH ONCE DAILY 07/27/2016 02/18/2017 Inactive Generic For:DETROL LA 4MG C AP 07/27/2016 9:08:27 AM Coumadin 4 mg tablet RxNorm: 920991 1 Tablet(s) PO 3 x week wed and sun 07/27/2016 09/24/2016 In active omeprazole 20 mg cap sean,delayed release RxNorm: 233749 Capsule(s) PO TAKE 1 CAPSULE BY MOUTH ONCE DAILY 07/27/2016 01/22/2017 Inactive venlafaxine ER 75 mg capsule,extended release 24 hr RxNorm: 932463 1 Capsule(s) PO daily 06/29/2016 06/21/2017 Inactive sodium bicarbonate 6 50 mg tablet RxNorm: 732442 TAKE 2 TABLETS BY JAVON TWICE DAILY 06/29/2016 12/23/2016 In active 06/27/2016 9:05:39 AM Coumadin 4 mg tablet RxNorm: 168773 1 Tablet(s) PO 3 x week wed and sun 06/09/2016 06/08/2016 In active Coumadin 4 mg tablet RxNorm: 313040 1 Tablet(s) PO 3 x week wed and sun 06/09/2016 07/26/2016 In active Zetia 10 mg tablet RxNorm: 059583 1 Tablet(s) PO daily 06/09/2016 06/08/2016 Inactive gave 1 month of samples Zetia 10 mg tablet RxNorm: 764795 1 Tablet(s) PO daily 06/09/2016 09/24/2016 Inactive gave 1 month of samples Effexor 75 mg tablet RxNorm: 019336 1 Tablet(s) PO daily 06/08/2016 06/28/2016 Inactive spironolactone 25 mg tablet RxNorm: 208064 1 Tablet(s) PO daily 06/08/2016 05/23/2017 Inactive Synthroid 137 mcg ta blet RxNorm: 824562 1 Tablet(s) PO daily 05/07/2016 11/02/2016 Inactive allopurinol 300 mg t ablet RxNorm: 193762 Tablet(s) TAKE 1 TABL ET BY MOUTH ONCE DAILY. 04/28/2016 10/24/2016 Inactive clonazepam 0.5 mg ta blet RxNorm: 691635 1 Tablet(s) PO BID 04/20/2016 10/03/2018 Inactive Flonase Allergy Reli ef 50 mcg/actuation nasal spray,suspension RxNorm: 2438589 1 Coleman NASAL BID 04/02/2016 No Stop Date Active Zithromax Z-Thomas 250 mg tablet RxNorm: 462375 Tablet(s) PO 04/02/2016 08/27/2016 Inactive cetirizine 10 mg tablet RxNorm: 1944599 1 Tablet(s) PO daily 04/02/2016 05/01/2016 Inactive Carafate 1 gram tablet RxNorm: 902273 Tablet(s) TAKE 1 TABLET TWICE A DAY FOR 30 DAYS 03/30/2016 10/25/2016 Inactive Generic For:CARAFATE 1GM 02/08/2015 12:3 6:39 PM Plavix 75 mg tablet RxNorm: 961262 1 Tablet(s) PO daily 03/11/2016 09/06/2016 Inactive sodium bicarbonate 6 50 mg tablet RxNorm: 235557 Tablet(s) 2 Tablet(s) PO BID 02/28/2016 06/26/2016 In active omeprazole 20 mg cap sean,delayed release RxNorm: 567532 Capsule(s) PO TAKE 1 CAPSULE BY MOUTH ONCE DAILY 01/31/2016 07/26/2016 Inactive Fish Oil 1,000 mg ca psule RxNorm: 1 Capsule(s) PO BID 01/14/2016 No Stop Date Active Synthroid 137 mcg ta blet RxNorm: 671523 1 Tablet(s) PO daily 01/14/2016 05/06/2016 Inactive Detrol LA 4 mg capsu le,extended release RxNorm: 010674 TAKE 1 CAPSULE BY JAVON TH ONCE DAILY 12/30/2015 07/26/2016 Inactive Generic For:DETROL LA 4MG C AP 12/30/2015 9:11:01 AM potassium chloride 2 0 mEq/15 mL oral liquid RxNorm: 732746 Milliliter(s) 30 Milliliter(s) (40mEq) PO daily 12/02/2015 03/30/2016 Inactive sodium bicarbonate 6 50 mg tablet RxNorm: 438144 Tablet(s) 2 Tablet(s) PO BID 10/31/2015 02/27/2016 In active Lipitor 40 mg tablet RxNorm: 471542 1 Tablet(s) PO daily 10/09/2015 09/24/2016 Inactive sodium bicarbonate 6 50 mg tablet RxNorm: 017944 2 Tablet(s) PO BID 10/01/2015 10/30/2015 Inactive allopurinol 300 mg t ablet RxNorm: 454595 TAKE 1 TABLET BY MOUT H ONCE DAILY. 10/01/2015 04/27/2016 In active Generic For:ZYLOPRIM 300 MG TABLET 09/19 9:21:15 AM clonazepam 0.5 mg ta blet RxNorm: 759183 1 Tablet(s) PO BID 09/30/2015 04/19/2016 Inactive Coumadin 5 mg tablet RxNorm: 046916 1 Tablet(s) PO daily 09/27/2015 05/31/2017 Inactive Generic For:COUMADIN 5MG TAB N O T I C E PRESCRIPTION PREVIOUSLY AUTHORIZED BY DOCTOR:BOBBY ZULETA Synthroid 125 mcg ta blet RxNorm: 418749 1 Tablet(s) PO daily 09/27/2015 09/26/2015 Inactive Synthroid 125 mcg ta blet RxNorm: 878146 1 Tablet(s) PO daily 09/27/2015 01/13/2016 Inactive Carafate 1 gram tablet RxNorm: 239400 Tablet(s) TAKE 1 TABLET TWICE A DAY FOR 30 DAYS 09/02/2015 03/29/2016 Inactive Generic For:CARAFATE 1GM 02/08/2015 12:3 6:39 PM sodium bicarbonate 6 50 mg tablet RxNorm: 537252 2 Tablet(s) PO BID 09/02/2015 09/30/2015 Inactive Prilosec 20 mg capsu le,delayed release RxNorm: 563603 TAKE 1 CAPSULE BY JAVON TH ONCE DAILY 08/02/2015 01/28/2016 Inactive Generic For:PRILOSEC 20MG 08/02/2015 10:03:09 AM N O T I C E PRESCRIPTION PREVIOUSLY AUTHORIZED BY DOCTOR:BOBBY ZULETA Zyrtec 10 mg capsule RxNorm: 0880150 1 Capsule(s) PO daily 07/15/2015 08/13/2015 Inactive Keflex 500 mg capsule RxNorm: 546376 1 Capsule(s) PO TID 07/15/2015 07/21/2015 Inactive cetirizine 10 mg cap sean RxNorm: 0647913 1 Capsule(s) PO daily 07/15/2015 08/13/2015 Inactive hydrocodone 5 mg-humberto taminophen 325 mg tablet RxNorm: 514075 1-2 Tablet(s) PO Q6 P RN 06/10/2015 11/16/2016 In active sodium bicarbonate 6 50 mg tablet RxNorm: 665256 2 Tablet(s) PO BID 06/03/2015 08/31/2015 Inactive Detrol LA 4 mg capsu le,extended release RxNorm: 647586 TAKE 1 CAPSULE BY JAVON TH ONCE DAILY 06/03/2015 12/29/2015 Inactive Generic For:DETROL LA 4MG C AP N O T I C E PRESCRIPTION PREVIOUSLY AUTHORIZED BY DOCTOR:BOBBY ZULETA atenolol 50 mg tablet RxNorm: 131294 1 Tablet(s) PO daily TAKE 1 TABLET BY MO UTH DAILY 05/07/2015 08/23/2017 Inactive Generic For:TENORMIN 50MG 05/04/2015 9:07:22 AM spironolactone 25 mg tablet RxNorm: 139651 1 Tablet(s) PO daily 05/06/2015 06/07/2016 Inactive venlafaxine ER 75 mg capsule,extended release 24 hr RxNorm: 380625 1 Capsule(s) PO daily 05/04/2015 06/28/2016 Inactive atenolol 50 mg tablet RxNorm: 161491 TAKE 1 TABLET BY MOUTH DAILY 05/04/2015 05/06/2015 Inactive Generic For:TENORMIN 50MG 05/04/2015 9: 07:22 AM Synthroid 150 mcg ta blet RxNorm: 806767 TAKE 1 TABLET BY MOUT H ONCE DAILY. 04/05/2015 09/26/2015 In active Generic For:SYNTHROID 150MCG TAB 2014 4:45:40 PM N O T I C E PRESCRIPTION PREVIOUSLY AUTHORIZED BY DOCTOR:BOBBY ZULETA Effexor 75 mg tablet RxNorm: 112064 1 Tablet(s) PO daily 04/05/2015 07/03/2015 Inactive Coumadin 5 mg tablet RxNorm: 044027 TAKE 1 AND 1/2 TABLETS BY MOUTH ONCE MYRANDA LY 04/04/2015 09/26/2015 In active Generic For:COUMADIN 5MG TAB N O T I C E PRESCRIPTION PREVIOUSLY AUTHORIZED BY DOCTOR:BOBBY ZULETA clonazepam 0.5 mg ta blet RxNorm: 911794 1 Tablet(s) PO BID 03/13/2015 11/05/2015 Inactive sodium bicarbonate 6 50 mg tablet RxNorm: 865704 2 Tablet(s) PO BID 03/08/2015 06/02/2015 Inactive allopurinol 300 mg t ablet RxNorm: 412106 TAKE 1 TABLET BY MOUT H ONCE DAILY. 03/05/2015 09/30/2015 In active N O T I C E PRESCRIPTION PREVIOUSLY A UTHORIZED BY DOCTOR:BOBBY ZULETA Plavix 75 mg tablet RxNorm: 646199 1 Tablet(s) PO daily 02/12/2015 09/09/2015 Inactive clonazepam 0.5 mg ta blet RxNorm: 161423 1 Tablet(s) PO BID 02/11/2015 03/11/2015 Inactive Carafate 1 gram tablet RxNorm: 219959 TAKE 1 TABLET TWICE A DAY FOR 30 DAYS 02/08/2015 02/07/2015 In active Generic For:CARAFATE 1GM 02/08/2015 12:3 6:39 PM Carafate 1 gram tablet RxNorm: 381580 Tablet(s) TAKE 1 TABLET TWICE A DAY FOR 30 DAYS 02/08/2015 09/01/2015 Inactive Generic For:CARAFATE 1GM 02/08/2015 12:3 6:39 PM potassium chloride 2 0 mEq/15 mL oral liquid RxNorm: 108657 30 Milliliter(s) (40m Eq) PO daily 02/05/2015 12/01/2015 Inactive atenolol 50 mg tablet RxNorm: 899067 1 Tablet(s) PO daily 02/04/2015 05/03/2015 Inactive [SAVINGS FOR NON-COVERED DRUGS -- BIN:00 6541, PCN: [id number], Group: XXXXX, ID# [id number], Questions: . THIS IS NOT INSURANCE.] potassium chloride 2 0 mEq/15 mL oral liquid RxNorm: 041742 30 Milliliter(s) (40m Eq) PO daily 01/08/2015 02/04/2015 Inactive potassium chloride 2 0 mEq/15 mL oral liquid RxNorm: 548429 30 Milliliter(s) (40m Eq) PO daily 12/07/2014 01/07/2015 Inactive atenolol 50 mg tablet RxNorm: 026718 1 Tablet(s) PO daily 11/09/2014 11/08/2014 Inactive atenolol 50 mg tablet RxNorm: 696206 1 Tablet(s) PO daily 11/09/2014 02/03/2015 Inactive [SAVINGS FOR NON-COVERED DRUGS -- BIN:00 3585, PCN: [email or web address], Group: XXXXX, ID# [id number], Questions: . THIS IS NOT INSURANCE.] Voltaren 1 % topical gel RxNorm: 056154 TOP No St art Date Active verapamil ER (HS) 24 0 mg tablet,extended release 24 hr RxNorm: 549149 1 Tablet(s) PO daily No Start Date Active aspirin 81 mg tablet RxNorm: 089001 1 Tablet(s) PO daily No Start Date Active Zofran 4 mg tablet RxNorm: 384278 1 Tablet(s) PO PRN No Start Date Active B12 1000 mcg RxNorm: 1 Tablet(s) PO daily No Start Date Active magnesium oxide 400 mg capsule RxNorm: 661671 2 Capsule(s) PO BID No Start Date Active Synthroid 150 mcg ta blet RxNorm: 079060 1 Tablet(s) PO daily No Start Date 04/04/2015 Inactive Coumadin 5 mg tablet RxNorm: 363166 1 Tablet(s) PO daily No Start Date 04/03/2015 Inactive cranberry 1,000 mg c apsule RxNorm: 377516 1 Capsule(s) PO daily No Start Date 04/13/2018 Inactive allopurinol 300 mg t ablet RxNorm: 491838 1 Tablet(s) PO daily No Start Date 03/04/2015 Inactive Prilosec 20 mg capsu le,delayed release RxNorm: 308849 1 Capsule(s) PO PRN No Start Date 08/01/2015 Inactive potassium chloride 2 0 mEq/15 mL oral liquid RxNorm: 234432 30 Milliliter(s) (40m Eq) PO daily No Start Date 12/06/2014 Inactive atenolol 50 mg tablet RxNorm: 729792 1 Tablet(s) PO daily No Start Date 08/29/2017 Inactive Lipitor 40 mg tablet RxNorm: 715434 1 Tablet(s) PO daily No Start Date 09/19/2017 Inactive Effexor 75 mg tablet RxNorm: 681015 1 Tablet(s) PO daily No Start Date 04/04/2015 Inactive Carafate 1 gram tablet RxNorm: 511512 1 Tablet(s) PO BID No Start Date 02/07/2015 Inactive clonazepam 0.5 mg ta blet RxNorm: 972847 1 Tablet(s) PO BID No Start Date 02/10/2015 Inactive Plavix 75 mg tablet RxNorm: 718215 1 Tablet(s) PO daily No Start Date 02/11/2015 Inactive sodium bicarbonate 6 50 mg tablet RxNorm: 657466 2 Tablet(s) PO BID No Start Date 09/01/2015 Inactive Lovenox 30 mg/0.3 mL subcutaneous syringe RxNorm: 182442 0.3 Milliliter(s) SQ Q12H No Start Date 03/15/2017 Inactive Fish Oil 1,000 mg ca psule RxNorm: 1 Capsule(s) PO daily No Start Date 01/13/2016 Inactive Detrol LA 4 mg capsu le,extended release RxNorm: 170003 1 Capsule(s) PO daily No Start Date 06/02/2015 Inactive Medication Administered Medication Codes Instruc tions Start Date Status Kenalog 40 mg/mL suspension for injection RxNorm: 4476971 Milliliter 09/02/2018 No longer Active Immunizations Vaccine Codes Date Status SHINGARIX CVX: 121 03/23 completed Assessments Condition Codes Effectiv e Dates Mixed hyperlipidemia ICD-10: E78.2 ICD-9: 272.4 10/05/2018 Other acute sinusitis ICD-10: J01.80 ICD-9: 461.8 09/02/2018 Other allergic rhinitis ICD-10: J30. 89 ICD-9: 477.8 09/02/2018 Hypothyroidism, unspecified ICD-10: E03.9 ICD-9: 244.9 04/14/2018 Essential (primary) hypertension ICD -10: I10 ICD-9: 401.9 04/14/2018 [facility] (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 ICD-10: Z79.01 ICD-9: [...] fatigue ICD-10: R53.83 ICD-9: 780.79 08/20/2016 Other care home (current) drug therapy ICD-10: Z79.899 ICD-9: [...] Observation Code Item Item Code Result Date Tsh Ord6 TSH (3rd IS) 0.43 uIU/mL 09/02/2018 Comp Metabolic Ind549 NA 136 mEq/L 09/02/2018 Comp Metabolic Lvc602 K 4.1 mEq/L 09/02/2018 Comp Metabolic Huz313 CL 103 mEq/L 09/02/2018 Comp Metabolic Kcb848 CO2 20.0 mEq/L 09/02/2018 Comp Metabolic Rmc504 AN ION GAP 17 09/02/2018 Comp Metabolic Zee745 GL UCOSE 124 mg/dL 09/02/2018 Comp Metabolic Aky338 Cr eat 1.0 mg/dL 09/02/2018 Comp Metabolic Zbe080 eG FR 57 ml/min/1.73m2 09/02 Comp Metabolic Skn075 BUN 24 mg/dL 09/02/2018 Comp Metabolic Nuf067 B/ C Ratio 23.8 Ratio 09/02/2018 Comp Metabolic Iyr247 CA LCIUM 9.5 mg/dL 09/02/2018 Comp Metabolic Ztt374 AL K PHOS 64 U/L 09/02/2018 Comp Metabolic Drr210 T(SGOT) 24 U/L 09/02/2018 Comp Metabolic Yos526 AL T(SGPT) 23 U/L 09/02/2018 Comp Metabolic Dfv980 BI LI T 0.5 mg/dL 09/02/2018 Comp Metabolic Eej809 AL BUMIN 4.2 g/dL 09/02/2018 Comp Metabolic Zic485 TP RO 7.4 g/dL 09/02/2018 Comp Metabolic Fxz394 GL OB 3.2 g/dL 09/02/2018 Comp Metabolic Smk173 A/ G Ratio 1.3 Ratio 09/02/2018 Comp Metabolic Dvm290 Os mo 277 mOsmo 09/02/2018 Pt Akq6252 PT 40.6 seconds 09/02/2018 Pt Tgd9086 INR 4.2 09/02/2018 Pt Quj0322 Low Intensity - 1.5-2.0 09/02/2018 Pt Bsd6421 Mod intensity - 2.0-3.0 09/02/2018 Pt Qff7978 Hi intensity - 3.0-4.0 09/02/2018 Free T4 Wbh315 FREE T4 1.51 ng/dL 09/02/2018 Magnesium Ord90 Mag 1.8 mg/dL 09/02/2018 Pt Xui8771 PT 29.2 seconds 08/05/2018 Pt Jrf0638 INR 2.8 08/05/2018 Pt Fxh8816 Low Intensity - 1.5-2.0 08/05/2018 Pt Ygx2058 Mod intensity - 2.0-3.0 08/05/2018 Pt Tee8434 Hi intensity - 3.0-4.0 08/05/2018 Pt Vyn6816 PT 30.2 seconds 07/25/2018 Pt Xmn2078 INR 2.9 07/25/2018 Pt Geu2476 Low Intensity - 1.5-2.0 07/25/2018 Pt Ceu1753 Mod intensity - 2.0-3.0 07/25/2018 Pt Ldk2006 Hi intensity - 3.0-4.0 07/25/2018 Pt Bei7408 PT 25.2 seconds 07/19/2018 Pt Jod7939 INR 2.3 07/19/2018 Pt Jbb5503 Low Intensity - 1.5-2.0 07/19/2018 Pt Qwl4617 Mod intensity - 2.0-3.0 07/19/2018 Pt Jvx2352 Hi intensity - 3.0-4.0 07/19/2018 Pt Nyk1300 PT 17.4 seconds 07/15/2018 Pt Gof7011 INR 1.5 07/15/2018 Pt Yqd4907 Low Intensity - 1.5-2.0 07/15/2018 Pt Npi0000 Mod intensity - 2.0-3.0 07/15/2018 Pt Cap1441 Hi intensity - 3.0-4.0 07/15/2018 Pt Zdo3059 PT 17.8 seconds 07/08/2018 Pt Vnb7432 INR 1.5 07/08/2018 Pt Ntu4021 Low Intensity - 1.5-2.0 07/08/2018 Pt Zib6652 Mod intensity - 2.0-3.0 07/08/2018 Pt Qev1813 Hi intensity - 3.0-4.0 07/08/2018 Pt Bvv4968 PT 19.2 seconds 07/01/2018 Pt Agg3784 INR 1.7 07/01/2018 Pt Kvr6727 Low Intensity - 1.5-2.0 07/01/2018 Pt Bua4379 Mod intensity - 2.0-3.0 07/01/2018 Pt Udj6889 Hi intensity - 3.0-4.0 07/01/2018 Pt Mdt5850 PT 17.4 seconds 06/23/2018 Pt Dyb6572 INR 1.5 06/23/2018 Pt Gyu4677 Low Intensity - 1.5-2.0 06/23/2018 Pt Ora4047 Mod intensity - 2.0-3.0 06/23/2018 Pt Wkr6323 Hi intensity - 3.0-4.0 06/23/2018 Pt Elq8147 PT 18.4 seconds 06/17/2018 Pt Eqe6611 INR 1.6 06/17/2018 Pt Jta9537 Low Intensity - 1.5-2.0 06/17/2018 Pt Cja6496 Mod intensity - 2.0-3.0 06/17/2018 Pt Dfl2287 Hi intensity - 3.0-4.0 06/17/2018 Sed Rate [...] 30.4 pg 06/08/2018 Cbc With Differential Ord2 [place]% 9.4 % 06/08/2018 Cbc With Differential Ord2 [...] 1.20 K/ul 06/08/2018 Cbc With Differential Ord2 [place] ABS# 0.5 K/ul 06/08/2018 Cbc With Differential Ord2 Eos ABS# 0.1 K/ul 06/08/2018 Cbc With Differential Ord2 Baso ABS# 0.1 K/ul 06/08/2018 C-Reactive Protein Qnt Crqnt CRP 0.1 mg/dl 06/08/2018 Pt Ajo2615 PT 17.6 seconds 06/08/2018 Pt Evj5063 INR 1.5 06/08/2018 Pt Gja2147 Low Intensity - 1.5-2.0 06/08/2018 Pt Qlm5004 Mod intensity - 2.0-3.0 06/08/2018 Pt Cyh3959 Hi intensity - 3.0-4.0 06/08/2018 Pt Tsz4308 PT 16.8 seconds 05/10/2018 Pt Tjq9111 INR 1.4 05/10/2018 Pt Omy5352 Low Intensity - 1.5-2.0 05/10/2018 Pt Ssy0124 Mod intensity - 2.0-3.0 05/10/2018 Pt Aht7925 Hi intensity - 3.0-4.0 05/10/2018 Pt Uuv7237 PT 16.7 seconds 05/04/2018 Pt Fww4534 INR 1.4 05/04/2018 Pt Sgy2758 Low Intensity - 1.5-2.0 05/04/2018 Pt Wxz7920 Mod intensity - 2.0-3.0 05/04/2018 Pt Wcw0936 Hi intensity - 3.0-4.0 05/04/2018 Free T4 Inm869 FREE T4 1.09 ng/dL 04/14/2018 Tsh Ord6 TSH (3rd IS) 2.36 uIU/mL 04/14/2018 Pt Esp5703 PT 20.3 seconds 04/14/2018 Pt Tnv3659 INR 1.8 04/14/2018 Pt Caj1531 Low Intensity - 1.5-2.0 04/14/2018 Pt Cbh1157 Mod intensity - 2.0-3.0 04/14/2018 Pt Dee9103 Hi intensity - 3.0-4.0 04/14/2018 Lipid Ord30 CHOL 149 mg/dL 04/14/2018 Lipid Ord30 HDL 49.0 mg/dl 04/14/2018 Lipid Ord30 TRIG 161 mg/dL 04/14/2018 Lipid Ord30 LDL 68 mg/dL 04/14/2018 Lipid Ord30 C/HDL 3.0 Ratio 04/14/2018 %Hba1C Ylv008 % HbA1c 72576-7 5.9 % 04/14/2018 %Hba1C Wcz004 Gluc Ave 123 mg/dL 04/14/2018 Comp Metabolic Hht354 NA 140 mEq/L 04/14/2018 Comp Metabolic Gtx370 K 4.1 mEq/L 04/14/2018 Comp Metabolic Vil479 CL 105 mEq/L 04/14/2018 Comp Metabolic Oke992 CO2 28.0 mEq/L 04/14/2018 Comp Metabolic Rjh883 AN ION GAP 11 04/14/2018 Comp Metabolic Fsw537 GL UCOSE 112 mg/dL 04/14/2018 Comp Metabolic Jdm329 Cr eat 1.0 mg/dL 04/14/2018 Comp Metabolic Fcg047 eG FR 58 ml/min/1.73m2 04/14 Comp Metabolic Cen418 BUN 20 mg/dL 04/14/2018 Comp Metabolic Vlo637 B/ C Ratio 20.2 Ratio 04/14/2018 Comp Metabolic Aqw905 CA LCIUM 10.0 mg/dL 04/14/2018 Comp Metabolic Fql080 AL K PHOS 51 U/L 04/14/2018 Comp Metabolic Tun079 T(SGOT) 24 U/L 04/14/2018 Comp Metabolic Pez067 AL T(SGPT) 21 U/L 04/14/2018 Comp Metabolic Uar486 BI LI T 0.8 mg/dL 04/14/2018 Comp Metabolic Tom020 AL BUMIN 4.2 g/dL 04/14/2018 Comp Metabolic Zko278 TP RO 7.1 g/dL 04/14/2018 Comp Metabolic Ioi865 GL OB 2.9 g/dL 04/14/2018 Comp Metabolic Dbq450 A/ G Ratio 1.5 Ratio 04/14/2018 Comp Metabolic Yhp841 Os mo 283 mOsmo 04/14/2018 Cbc With [...] 30.7 pg 04/14/2018 Cbc With Differential Ord2 [place]% 10.6 % 04/14/2018 Cbc With Differential Ord2 [...] 1.18 K/ul 04/14/2018 Cbc With Differential Ord2 [place] ABS# 0.5 K/ul 04/14/2018 Cbc With Differential Ord2 Eos ABS# 0.2 K/ul 04/14/2018 Cbc With Differential Ord2 Baso ABS# 0.1 K/ul 04/14/2018 Pt Sxa0052 PT 29.3 seconds 02/11/2018 Pt Evw8003 INR 2.8 02/11/2018 Pt Hbt1468 Low Intensity - 1.5-2.0 02/11/2018 Pt Peu0931 Mod intensity - 2.0-3.0 02/11/2018 Pt Gpg0865 Hi intensity - 3.0-4.0 02/11/2018 Comp Metabolic Vkw372 NA 141 mEq/L 01/05/2018 Comp Metabolic Ips569 K 3.7 mEq/L 01/05/2018 Comp Metabolic Ftw319 CL 102 mEq/L 01/05/2018 Comp Metabolic Hrs578 CO2 29.0 mEq/L 01/05/2018 Comp Metabolic Ttp255 AN ION GAP 14 01/05/2018 Comp Metabolic Vif849 GL UCOSE 136 mg/dL 01/05/2018 Comp Metabolic Trh171 Cr eat 1.0 mg/dL 01/05/2018 Comp Metabolic Dfg961 eG FR 61 ml/min/1.73m2 01/05 Comp Metabolic Sgi550 BUN 22 mg/dL 01/05/2018 Comp Metabolic Ckx493 B/ C Ratio 22.9 Ratio 01/05/2018 Comp Metabolic Bfu550 CA LCIUM 9.7 mg/dL 01/05/2018 Comp Metabolic Gsx145 AL K PHOS 57 U/L 01/05/2018 Comp Metabolic Mly503 T(SGOT) 21 U/L 01/05/2018 Comp Metabolic Abr593 AL T(SGPT) 19 U/L 01/05/2018 Comp Metabolic Evs687 BI LI T 0.9 mg/dL 01/05/2018 Comp Metabolic Lcw006 AL BUMIN 4.1 g/dL 01/05/2018 Comp Metabolic Hrk976 TP RO 7.1 g/dL 01/05/2018 Comp Metabolic Lyz385 GL OB 3.0 g/dL 01/05/2018 Comp Metabolic Rga107 A/ G Ratio 1.4 Ratio 01/05/2018 Comp Metabolic Yng231 Os mo 287 mOsmo 01/05/2018 Free T4 Xle288 FREE T4 1.05 ng/dL 01/05/2018 %Hba1C Smy651 % HbA1c 70181-7 6.0 % 01/05/2018 %Hba1C Qak554 Gluc Ave 126 mg/dL 01/05/2018 Cbc With [...] 30.6 pg 01/05/2018 Cbc With Differential Ord2 [place]% 10.5 % 01/05/2018 Cbc With Differential Ord2 [...] 1.27 K/ul 01/05/2018 Cbc With Differential Ord2 [place] ABS# 0.5 K/ul 01/05/2018 Cbc With Differential Ord2 Eos ABS# 0.2 K/ul 01/05/2018 Cbc With Differential Ord2 Baso ABS# 0.1 K/ul 01/05/2018 Pt Vgl6277 PT 20.7 seconds 01/05/2018 Pt Sjn3756 INR 1.8 01/05/2018 Pt Ovd8408 Low Intensity - 1.5-2.0 01/05/2018 Pt Ujf8879 Mod intensity - 2.0-3.0 01/05/2018 Pt Edd5606 Hi intensity - 3.0-4.0 01/05/2018 Tsh Ord6 TSH (3rd IS) 2.34 uIU/mL 01/05/2018 Lipid Ord30 CHOL 156 mg/dL 01/05/2018 Lipid Ord30 HDL 48.0 mg/dl 01/05/2018 Lipid Ord30 TRIG 207 mg/dL 01/05/2018 Lipid Ord30 LDL 67 mg/dL 01/05/2018 Lipid Ord30 C/HDL 3.3 Ratio 01/05/2018 Pt Bey9766 PT 28.3 seconds 11/26/2017 Pt Mib5367 INR 2.6 11/26/2017 Pt Pvu6131 Low Intensity - 1.5-2.0 11/26/2017 Pt Tzs0682 Mod intensity - 2.0-3.0 11/26/2017 Pt Fxp6505 Hi intensity - 3.0-4.0 11/26/2017 Pt Nip4009 PT 36.5 seconds 11/19/2017 Pt Etk6304 INR 3.6 11/19/2017 Pt Omf7799 Low Intensity - 1.5-2.0 11/19/2017 Pt Skv0944 Mod intensity - 2.0-3.0 11/19/2017 Pt Ijd4750 Hi intensity - 3.0-4.0 11/19/2017 Pt Xga9373 PT 22.9 seconds 10/15/2017 Pt Lmf6328 INR 2.0 10/15/2017 Pt Qxj4194 Low Intensity - 1.5-2.0 10/15/2017 Pt Aul7757 Mod intensity - 2.0-3.0 10/15/2017 Pt Vhm1531 Hi intensity - 3.0-4.0 10/15/2017 Pt Urg7381 PT 25.9 seconds 10/01/2017 Pt Ahc2156 INR 2.4 10/01/2017 Pt Ief5006 Low Intensity - 1.5-2.0 10/01/2017 Pt Yod9175 Mod intensity - 2.0-3.0 10/01/2017 Pt Hip9088 Hi intensity - 3.0-4.0 10/01/2017 Pt Abu3070 PT 20.6 seconds 09/24/2017 Pt Sbs4782 INR 1.8 09/24/2017 Pt Xqu7566 Low Intensity - 1.5-2.0 09/24/2017 Pt Zwb1793 Mod intensity - 2.0-3.0 09/24/2017 Pt Czg7701 Hi intensity - 3.0-4.0 09/24/2017 Pt Pjj9774 PT 21.0 seconds 09/15/2017 Pt Lnn6299 INR 1.8 09/15/2017 Pt Rgo5422 Low Intensity - 1.5-2.0 09/15/2017 Pt Pga3129 Mod intensity - 2.0-3.0 09/15/2017 Pt Mzn1660 Hi intensity - 3.0-4.0 09/15/2017 Pt Wrf4756 PT 19.0 seconds 09/03/2017 Pt Mrp8723 INR 1.6 09/03/2017 Pt Tev1804 Low Intensity - 1.5-2.0 09/03/2017 Pt Civ0784 Mod intensity - 2.0-3.0 09/03/2017 Pt Fsq8059 Hi intensity - 3.0-4.0 09/03/2017 Pt Ynj9184 PT 17.6 seconds 08/23/2017 Pt Tee8785 INR 1.5 08/23/2017 Pt Wku7341 Low Intensity - 1.5-2.0 08/23/2017 Pt Cbd7766 Mod intensity - 2.0-3.0 08/23/2017 Pt Dug7765 Hi intensity - 3.0-4.0 08/23/2017 Pt Hll6169 PT 12.7 seconds 08/20/2017 Pt Czm5219 INR 1.0 08/20/2017 Pt Aem9269 Low Intensity - 1.5-2.0 08/20/2017 Pt Rml9144 Mod intensity - 2.0-3.0 08/20/2017 Pt Tdj9722 Hi intensity - 3.0-4.0 08/20/2017 Pt Uel1513 PT 12.9 seconds 08/17/2017 Pt Ikw4455 INR 1.0 08/17/2017 Pt Xny8707 Low Intensity - 1.5-2.0 08/17/2017 Pt Svo3846 Mod intensity - 2.0-3.0 08/17/2017 Pt Huw4102 Hi intensity - 3.0-4.0 08/17/2017 Pt Oag2419 PT 18.5 seconds 08/10/2017 Pt Nfh2861 INR 1.6 08/10/2017 Pt Ibk6577 Low Intensity - 1.5-2.0 08/10/2017 Pt Siq9631 Mod intensity - 2.0-3.0 08/10/2017 Pt Zzk6664 Hi intensity - 3.0-4.0 08/10/2017 Tsh Ord6 [...] 29.3 pg 05/27/2017 Cbc With Differential Ord2 [place]% 8.1 % 05/27/2017 Cbc With Differential Ord2 [...] 1.11 K/ul 05/27/2017 Cbc With Differential Ord2 [place] ABS# 0.6 K/ul 05/27/2017 Cbc With Differential Ord2 Eos ABS# 0.2 K/ul 05/27/2017 Cbc With Differential Ord2 Baso ABS# 0.1 K/ul 05/27/2017 Pt Gbe9907 PT 28.2 seconds 05/27/2017 Pt Oyc6454 INR 2.6 05/27/2017 Pt Spx9734 Low Intensity - 1.5-2.0 05/27/2017 Pt Bzk8020 Mod intensity - 2.0-3.0 05/27/2017 Pt Tfm2446 Hi intensity - 3.0-4.0 05/27/2017 Lipid Ord30 CHOL 167 mg/dL 05/27/2017 Lipid Ord30 HDL 49.0 mg/dl 05/27/2017 Lipid Ord30 TRIG 347 mg/dL 05/27/2017 Lipid Ord30 LDL 49 mg/dL 05/27/2017 Lipid Ord30 C/HDL 3.4 Ratio 05/27/2017 Magnesium Ord90 Mag 1.4 mg/dL 05/27/2017 %Hba1C Ywy845 % HbA1c 35415-3 5.9 % 05/27/2017 %Hba1C Zpd419 Gluc Ave 123 mg/dL 05/27/2017 Comp Metabolic Ckq527 NA 138 mEq/L 05/27/2017 Comp Metabolic Gwm650 K 4.1 mEq/L 05/27/2017 Comp Metabolic Ovf292 CL 101 mEq/L 05/27/2017 Comp Metabolic Mdh407 CO2 31.0 mEq/L 05/27/2017 Comp Metabolic Vtt933 AN ION GAP 10 05/27/2017 Comp Metabolic Lba420 GL UCOSE 117 mg/dL 05/27/2017 Comp Metabolic Hrj429 Cr eat 0.9 mg/dL 05/27/2017 Comp Metabolic Pzk320 eG FR 62 ml/min/1.73m2 05/27 Comp Metabolic Btf438 BUN 25 mg/dL 05/27/2017 Comp Metabolic Vkv008 B/ C Ratio 26.6 Ratio 05/27/2017 Comp Metabolic Oyy702 CA LCIUM 9.5 mg/dL 05/27/2017 Comp Metabolic Fxj262 AL K PHOS 73 U/L 05/27/2017 Comp Metabolic Rzn126 T(SGOT) 18 U/L 05/27/2017 Comp Metabolic Bvs242 AL T(SGPT) 12 U/L 05/27/2017 Comp Metabolic Ycp927 BI LI T 0.5 mg/dL 05/27/2017 Comp Metabolic Iiz161 AL BUMIN 4.1 g/dL 05/27/2017 Comp Metabolic Xgx214 TP RO 7.1 g/dL 05/27/2017 Comp Metabolic Foe266 GL OB 3.0 g/dL 05/27/2017 Comp Metabolic Xug807 A/ G Ratio 1.3 Ratio 05/27/2017 Comp Metabolic Adj348 Os mo 281 mOsmo 05/27/2017 Free T4 Qnf954 FREE T4 0.91 ng/dL 05/27/2017 Pt Uxk0215 PT 29.2 seconds 04/16/2017 Pt Mpy2682 INR 2.7 04/16/2017 Pt Qfz9160 Low Intensity - 1.5-2.0 04/16/2017 Pt Ioa5474 Mod intensity - 2.0-3.0 04/16/2017 Pt Wjs9087 Hi intensity - 3.0-4.0 04/16/2017 Pt Qft6472 PT 30.7 seconds 03/31/2017 Pt Urq2653 INR 2.9 03/31/2017 Pt Oee4305 Low Intensity - 1.5-2.0 03/31/2017 Pt Fqz1262 Mod intensity - 2.0-3.0 03/31/2017 Pt Oep6138 Hi intensity - 3.0-4.0 03/31/2017 Pt Qig7007 PT 21.3 seconds 03/26/2017 Pt Wjp6052 INR 1.9 03/26/2017 Pt Sfz9359 Low Intensity - 1.5-2.0 03/26/2017 Pt Mlf2034 Mod intensity - 2.0-3.0 03/26/2017 Pt Ksj7154 Hi intensity - 3.0-4.0 03/26/2017 Pt Ctf7963 PT 19.8 seconds 03/22/2017 Pt Wdk7475 INR 1.7 03/22/2017 Pt Uuq9138 Low Intensity - 1.5-2.0 03/22/2017 Pt Mkk4746 Mod intensity - 2.0-3.0 03/22/2017 Pt Yij4747 Hi intensity - 3.0-4.0 03/22/2017 Pt Imz6945 PT 15.6 seconds 03/19/2017 Pt Tvi2758 INR 1.3 03/19/2017 Pt Mwo6250 Low Intensity - 1.5-2.0 03/19/2017 Pt Seu5663 Mod intensity - 2.0-3.0 03/19/2017 Pt Ceb0082 Hi intensity - 3.0-4.0 03/19/2017 Pt Srx3752 PT 13.7 seconds 03/15/2017 Pt Ahn8058 INR 1.1 03/15/2017 Pt Lzr5679 Low Intensity - 1.5-2.0 03/15/2017 Pt Epj7948 Mod intensity - 2.0-3.0 03/15/2017 Pt Ply9003 Hi intensity - 3.0-4.0 03/15/2017 Pt Lxt9347 PT 25.8 seconds 01/28/2017 Pt Kal1819 INR 2.4 01/28/2017 Pt Lzd3194 Low Intensity - 1.5-2.0 01/28/2017 Pt Ndf4580 Mod intensity - 2.0-3.0 01/28/2017 Pt Qzb5352 Hi intensity - 3.0-4.0 01/28/2017 %Hba1C Hgt752 % HbA1c 58671-2 6.4 % 10/23/2016 %Hba1C Hpc319 Gluc Ave 137 mg/dL 10/23/2016 Comp Metabolic Vhj453 NA 138 mEq/L 10/23/2016 Comp Metabolic Xmx792 K 3.4 mEq/L 10/23/2016 Comp Metabolic Trn788 CL 100 mEq/L 10/23/2016 Comp Metabolic Bnn151 CO2 30.0 mEq/L 10/23/2016 Comp Metabolic Yoh776 AN ION GAP 11 10/23/2016 Comp Metabolic Sko383 GL UCOSE 139 mg/dL 10/23/2016 Comp Metabolic Aan391 Cr eat 0.9 mg/dL 10/23/2016 Comp Metabolic Vlz841 eG FR 62 ml/min/1.73m2 10/23 Comp Metabolic Aaf213 BUN 22 mg/dL 10/23/2016 Comp Metabolic Zlc271 B/ C Ratio 23.4 Ratio 10/23/2016 Comp Metabolic Ccx126 CA LCIUM 8.7 mg/dL 10/23/2016 Comp Metabolic Vth780 AL K PHOS 66 U/L 10/23/2016 Comp Metabolic Mzo725 T(SGOT) 20 U/L 10/23/2016 Comp Metabolic Cmg762 AL T(SGPT) 10 U/L 10/23/2016 Comp Metabolic Goi885 BI LI T 0.5 mg/dL 10/23/2016 Comp Metabolic Maw936 AL BUMIN 3.5 g/dL 10/23/2016 Comp Metabolic Mtm127 TP RO 6.3 g/dL 10/23/2016 Comp Metabolic Rwf984 GL OB 2.8 g/dL 10/23/2016 Comp Metabolic Btl212 A/ G Ratio 1.3 Ratio 10/23/2016 Comp Metabolic Nur396 Os mo 281 mOsmo 10/23/2016 Pt Dff1557 PT 26.8 seconds 10/23/2016 Pt Yne9637 INR 2.7 10/23/2016 Pt Zfb6466 Low Intensity - 1.5-2.0 10/23/2016 Pt Ihc0303 Mod intensity - 2.0-3.0 10/23/2016 Pt Ypf1008 Hi intensity - 3.0-4.0 10/23/2016 Pt Gpp3793 PT 28.3 seconds 09/25/2016 Pt Eyg8814 INR 2.8 09/25/2016 Pt Zbc6532 Low Intensity - 1.5-2.0 09/25/2016 Pt Qom4872 Mod intensity - 2.0-3.0 09/25/2016 Pt Cng1396 Hi intensity - 3.0-4.0 09/25/2016 Metabolic Ord15 [...] Metabolic Ord15 CALCIUM 8.8 mg/dL 09/25/2016 Pt Adv1282 PT 30.6 seconds 09/11/2016 Pt Qhy6616 INR 3.2 09/11/2016 Pt Uys6930 Low Intensity - 1.5-2.0 09/11/2016 Pt Dfl8013 Mod intensity - 2.0-3.0 09/11/2016 Pt Tml8336 Hi intensity - 3.0-4.0 09/11/2016 Comp Metabolic Lug434 NA 138 mEq/L 09/11/2016 Comp Metabolic Rpg306 K 4.4 mEq/L 09/11/2016 Comp Metabolic Nyo594 CL 103 mEq/L 09/11/2016 Comp Metabolic Itl909 CO2 31.0 mEq/L 09/11/2016 Comp Metabolic Rag293 AN ION GAP 8 09/11/2016 Comp Metabolic Wjv364 GL UCOSE 146 mg/dL 09/11/2016 Comp Metabolic Vhg912 Cr eat 1.0 mg/dL 09/11/2016 Comp Metabolic Yxp259 eG FR 60 ml/min/1.73m2 09/11 Comp Metabolic Syo385 BUN 16 mg/dL 09/11/2016 Comp Metabolic Cpq900 B/ C Ratio 16.5 Ratio 09/11/2016 Comp Metabolic Wdt578 CA LCIUM 8.7 mg/dL 09/11/2016 Comp Metabolic Cer617 AL K PHOS 52 U/L 09/11/2016 Comp Metabolic Arr706 T(SGOT) 19 U/L 09/11/2016 Comp Metabolic Ynp037 AL T(SGPT) 11 U/L 09/11/2016 Comp Metabolic Egi620 BI LI T 0.7 mg/dL 09/11/2016 Comp Metabolic Diw900 AL BUMIN 3.3 g/dL 09/11/2016 Comp Metabolic Gik337 TP RO 5.8 g/dL 09/11/2016 Comp Metabolic Tnw549 GL OB 2.5 g/dL 09/11/2016 Comp Metabolic Oen576 A/ G Ratio 1.3 Ratio 09/11/2016 Comp Metabolic Mtu883 Os mo 280 mOsmo 09/11/2016 C-Reactive Protein Qnt Crqnt CRP 0.1 mg/dl 08/21/2016 Comp Metabolic Ica216 NA 139 mEq/L 08/21/2016 Comp Metabolic Pqr298 K 4.1 mEq/L 08/21/2016 Comp Metabolic Pux049 CL 102 mEq/L 08/21/2016 Comp Metabolic Cci987 CO2 30.0 mEq/L 08/21/2016 Comp Metabolic Lib364 AN ION GAP 11 08/21/2016 Comp Metabolic Djy630 GL UCOSE 148 mg/dL 08/21/2016 Comp Metabolic Xos231 Cr eat 1.0 mg/dL 08/21/2016 Comp Metabolic Qty102 eG FR 55 ml/min/1.73m2 08/21 Comp Metabolic Hxg001 BUN 21 mg/dL 08/21/2016 Comp Metabolic Lzf740 B/ C Ratio 20.2 Ratio 08/21/2016 Comp Metabolic Jhy544 CA LCIUM 9.4 mg/dL 08/21/2016 Comp Metabolic Cim266 AL K PHOS 63 U/L 08/21/2016 Comp Metabolic Yuf493 T(SGOT) 23 U/L 08/21/2016 Comp Metabolic Jia591 AL T(SGPT) 16 U/L 08/21/2016 Comp Metabolic Rhm454 BI LI T 0.6 mg/dL 08/21/2016 Comp Metabolic Pxf523 AL BUMIN 3.9 g/dL 08/21/2016 Comp Metabolic Ier263 TP RO 6.8 g/dL 08/21/2016 Comp Metabolic Tqr012 GL OB 2.9 g/dL 08/21/2016 Comp Metabolic Rca560 A/ G Ratio 1.4 Ratio 08/21/2016 Comp Metabolic Zse231 Os mo 283 mOsmo 08/21/2016 Sed Rate Ord21 ESR 16 mm/hr 08/21/2016 Pt Wyi0188 PT 27.2 seconds 08/21/2016 Pt Djx3253 INR 2.7 08/21/2016 Pt Kfc4189 Low Intensity - 1.5-2.0 08/21/2016 Pt Hqb4344 Mod intensity - 2.0-3.0 08/21/2016 Pt Jkx1576 Hi intensity - 3.0-4.0 08/21/2016 Magnesium Ord90 Mag 1.9 mg/dL 08/21/2016 Pt Rvf2099 PT 25.9 seconds 06/17/2016 Pt Qlg6654 INR 2.5 06/17/2016 Pt Bpw5596 Low Intensity - 1.5-2.0 06/17/2016 Pt Spu2017 Mod intensity - 2.0-3.0 06/17/2016 Pt Jgz4760 Hi intensity - 3.0-4.0 06/17/2016 Tsh Ord6 hTSH II 2.13 uIU/mL 06/08/2016 Free T4 Gmm645 FREE T4 0.79 ng/dL 06/08/2016 Cbc With [...] 26.8 pg 06/08/2016 Cbc With Differential Ord2 [place]% 12.0 % 06/08/2016 Cbc With Differential Ord2 [...] 1.40 K/ul 06/08/2016 Cbc With Differential Ord2 [place] ABS# 0.7 K/ul 06/08/2016 Cbc With Differential Ord2 [place] ABS# 0.3 K/ul 06/08/2016 Cbc With Differential Ord2 Baso ABS# 0.1 K/ul 06/08/2016 %Hba1C Gwd436 % HbA1c 42367-8 6.2 % 06/08/2016 %Hba1C Rhc056 Gluc Ave 131 mg/dL 06/08/2016 Comp Metabolic Rvc651 NA 138 mEq/L 06/08/2016 Comp Metabolic Zkr574 K 3.9 mEq/L 06/08/2016 Comp Metabolic Jqv682 CL 105 mEq/L 06/08/2016 Comp Metabolic Eud610 CO2 27.0 mEq/L 06/08/2016 Comp Metabolic Lxo254 AN ION GAP 10 06/08/2016 Comp Metabolic Xxz221 GL UCOSE 127 mg/dL 06/08/2016 Comp Metabolic Kcf943 Cr eat 1.0 mg/dL 06/08/2016 Comp Metabolic Zoe600 eG FR 59 ml/min/1.73m2 06/08 Comp Metabolic Wbm020 BUN 19 mg/dL 06/08/2016 Comp Metabolic Dzb294 B/ C Ratio 19.4 Ratio 06/08/2016 Comp Metabolic Pgv497 CA LCIUM 9.2 mg/dL 06/08/2016 Comp Metabolic Ngh392 AL K PHOS 77 U/L 06/08/2016 Comp Metabolic Qpu253 T(SGOT) 19 U/L 06/08/2016 Comp Metabolic Ktv818 AL T(SGPT) 13 U/L 06/08/2016 Comp Metabolic Wao584 BI LI T 0.5 mg/dL 06/08/2016 Comp Metabolic Qea073 AL BUMIN 3.8 g/dL 06/08/2016 Comp Metabolic Iie884 TP RO 6.6 g/dL 06/08/2016 Comp Metabolic Dnv616 GL OB 2.8 g/dL 06/08/2016 Comp Metabolic Dzx075 A/ G Ratio 1.4 Ratio 06/08/2016 Comp Metabolic Plp791 Os mo 280 mOsmo 06/08/2016 Pt Sqs9584 PT 36.1 seconds 06/08/2016 Pt Jog7292 INR 3.9 06/08/2016 Pt Mzi8162 Low Intensity - 1.5-2.0 06/08/2016 Pt Vji9777 Mod intensity - 2.0-3.0 06/08/2016 Pt Nda2922 Hi intensity - 3.0-4.0 06/08/2016 Lipid Ord30 CHOL 149 mg/dL 06/08/2016 Lipid Ord30 HDL 46.0 mg/dl 06/08/2016 Lipid Ord30 TRIG 279 mg/dL 06/08/2016 Lipid Ord30 LDL 47 mg/dL 06/08/2016 Lipid Ord30 C/HDL 3.2 Ratio 06/08/2016 Pt Pmu1769 PT 30.9 seconds 02/12/2016 Pt Uho7546 INR 3.2 02/12/2016 Pt Rao1152 Low Intensity - 1.5-2.0 02/12/2016 Pt Ewo2172 Mod intensity - 2.0-3.0 02/12/2016 Pt Ryn7482 Hi intensity - 3.0-4.0 02/12/2016 Free T4 Voz839 FREE T4 1.24 ng/dL 09/27/2015 %Hba1C Hhx677 % HbA1c 35008-5 6.4 % 09/27/2015 %Hba1C Aae523 Gluc Ave 137 mg/dL 09/27/2015 Tsh Ord6 hTSH II 0.37 uIU/mL 09/27/2015 Pt Yrf9164 PT 26.2 seconds 09/27/2015 Pt Jvl3519 INR 2.5 09/27/2015 Pt Suf4170 Low Intensity - 1.5-2.0 09/27/2015 Pt Jlo7784 Mod intensity - 2.0-3.0 09/27/2015 Pt Zlk5355 Hi intensity - 3.0-4.0 09/27/2015 Pt Cvs3139 PT 27.6 seconds 2015 Pt Yha6312 INR 2.7 2015 Pt Jec5165 Low Intensity - 1.5-2.0 2015 Pt Qtu3362 Mod intensity - 2.0-3.0 2015 Pt Saj2037 Hi intensity - 3.0-4.0 2015 %Hba1C Suj604 % HbA1c 46921-4 6.1 % 06/11/2015 %Hba1C Txk577 Gluc Ave 128 mg/dL 06/11/2015 Cbc With [...] Ord2 RDW 15.8 % 06/10/2015 Comp Metabolic Ofm971 NA 139 mEq/L 06/10/2015 Comp Metabolic Uvy782 K 4.1 mEq/L 06/10/2015 Comp Metabolic Ygr015 CL 105 mEq/L 06/10/2015 Comp Metabolic Kzt056 CO2 27.0 mEq/L 06/10/2015 Comp Metabolic Uuc745 AN ION GAP 11 06/10/2015 Comp Metabolic Mqr855 GL UCOSE 127 mg/dL 06/10/2015 Comp Metabolic Knu660 Cr eat 1.0 mg/dL 06/10/2015 Comp Metabolic Ziy122 eG FR 59 ml/min/1.73m2 06/10 Comp Metabolic Hry958 BUN 21 mg/dL 06/10/2015 Comp Metabolic Tej554 B/ C Ratio 21.2 Ratio 06/10/2015 Comp Metabolic Bdg308 CA LCIUM 9.2 mg/dL 06/10/2015 Comp Metabolic Wws269 AL K PHOS 87 U/L 06/10/2015 Comp Metabolic Lvu594 T(SGOT) 20 U/L 06/10/2015 Comp Metabolic Kkn446 AL T(SGPT) 17 U/L 06/10/2015 Comp Metabolic Mpd887 BI LI T 0.4 mg/dL 06/10/2015 Comp Metabolic Vdj721 AL BUMIN 4.1 g/dL 06/10/2015 Comp Metabolic Mnj104 TP RO 7.2 g/dL 06/10/2015 Comp Metabolic Znk177 GL OB 3.1 g/dL 06/10/2015 Comp Metabolic Xsj457 A/ G Ratio 1.3 Ratio 06/10/2015 Comp Metabolic Oiz360 Os mo 282 mOsmo 06/10/2015 Tsh Ord6 hTSH II 0.86 uIU/mL 06/10/2015 Lipid Ord30 CHOL 161 mg/dL 06/10/2015 Lipid Ord30 HDL 49.0 mg/dl 06/10/2015 Lipid Ord30 TRIG 208 mg/dL 06/10/2015 Lipid Ord30 LDL 70 mg/dL 06/10/2015 Lipid Ord30 C/HDL 3.3 Ratio 06/10/2015 Pt Bki3049 PT 25.0 seconds 04/09/2015 Pt Qdw4632 INR 2.4 04/09/2015 Pt Jni0028 Low Intensity - 1.5-2.0 04/09/2015 Pt Qkm8104 Mod intensity - 2.0-3.0 04/09/2015 Pt Fga5394 Hi intensity - 3.0-4.0 04/09/2015 Free T4 Dqv222 FREE T4 1.05 ng/dL 01/22/2015 Pt Wmj1618 PT 27.2 seconds 01/22/2015 Pt Gtc8021 INR 2.6 01/22/2015 Pt Lsv6050 Low Intensity - 1.5-2.0 01/22/2015 Pt Dlw5582 Mod intensity - 2.0-3.0 01/22/2015 Pt Hpo6099 Hi intensity - 3.0-4.0 01/22/2015 Cbc With [...] Differential Ord2 RDW 15.2 % 01/22/2015 B12 Kem396 B12 402.00 pg/ml 01/22/2015 Tsh Ord6 hTSH II 0.65 uIU/mL 01/22/2015 Lipid Ord30 CHOL 166 mg/dL 01/22/2015 Lipid Ord30 HDL 48.0 mg/dl 01/22/2015 Lipid Ord30 TRIG 264 mg/dL 01/22/2015 Lipid Ord30 LDL 65 mg/dL 01/22/2015 Lipid Ord30 C/HDL 3.5 Ratio 01/22/2015 Comp Metabolic Brk010 NA 138 mEq/L 01/22/2015 Comp Metabolic Sbe258 K 4.1 mEq/L 01/22/2015 Comp Metabolic Yns545 CL 104 mEq/L 01/22/2015 Comp Metabolic Aoy057 CO2 29.0 mEq/L 01/22/2015 Comp Metabolic Ihj605 AN ION GAP 9 01/22/2015 Comp Metabolic Ixs999 GL UCOSE 106 mg/dL 01/22/2015 Comp Metabolic Nrb071 Cr eat 0.9 mg/dL 01/22/2015 Comp Metabolic Vck457 eG FR 63 ml/min/1.73m2 01/22 Comp Metabolic Edt332 BUN 21 mg/dL 01/22/2015 Comp Metabolic Ueb476 B/ C Ratio 22.3 Ratio 01/22/2015 Comp Metabolic Ogt001 CA LCIUM 9.4 mg/dL 01/22/2015 Comp Metabolic Mof828 AL K PHOS 83 U/L 01/22/2015 Comp Metabolic Uvn174 T(SGOT) 23 U/L 01/22/2015 Comp Metabolic Nhu481 AL T(SGPT) 18 U/L 01/22/2015 Comp Metabolic Qck163 BI LI T 0.8 mg/dL 01/22/2015 Comp Metabolic Ais303 AL BUMIN 4.2 g/dL 01/22/2015 Comp Metabolic Vou205 TP RO 7.3 g/dL 01/22/2015 Comp Metabolic Qhe045 GL OB 3.1 g/dL 01/22/2015 Comp Metabolic Zuc992 A/ G Ratio 1.4 Ratio 01/22/2015 Comp Metabolic Kjc696 Os mo 279 mOsmo 01/22/2015 Review of [...] Procedure Codes Date THER/PROPH/DIAG INJ SC/IM CPT-4: 05035 09/02/2018 TRIAMCINOLONE ACET I [place] NOS CPT-4: J3301 09/02/2018 URINALYSIS NONAUTO W /O SCOPE CPT-4: 65641 03/05/2017 Vital Signs Date Vital 09/02/2018 Blood Pressure 1: 128/72 Code: 8480-6 BMI: 38.2 Code: 79501-8 Heart Rate 1: 80 bpm Height: 5'1" SpO2: 98% Weight: 202 lbs 04/14/2018 Blood Pressure 1: 116/78 Code: 8480-6 BMI: 41.6 Code: 23855-3 Heart Rate 1: 72 bpm Height: 5'1" SpO2: 98% Weight: 220 lbs 01/18/2018 Blood Pressure 1: 132/74 Code: 8480-6 BMI: 43.5 Code: 18270-8 Heart Rate 1: 70 bpm Height: 5'1" SpO2: 97% Weight: 230 lbs 01/04/2018 Blood Pressure 1: 134/76 Code: 8480-6 BMI: 42.7 Code: 24383-1 Heart Rate 1: 83 bpm Height: 5'1" SpO2: 98% Weight: 226 lbs 09/23/2017 Blood Pressure 1: 124/76 Code: 8480-6 BMI: 42.3 Code: 33435-7 Heart Rate 1: 94 bpm Height: 5'1" SpO2: 96% Weight: 224 lbs 05/27/2017 Blood Pressure 1: 146/78 Code: 8480-6 BMI: 41.4 Code: 52857-4 Heart Rate 1: 85 bpm Height: 5'1" SpO2: 98% Weight: 219 lbs 02/24/2017 Blood Pressure 1: 138/66 Code: 8480-6 BMI: 41.4 Code: 48171-4 Heart Rate 1: 78 bpm Height: 5'1" SpO2: 97% Weight: 219 lbs 11/02/2016 Blood Pressure 1: 144/72 Code: 8480-6 BMI: 46.1 Code: 88906-2 Heart Rate 1: 78 bpm Height: 5'1" SpO2: 98% Weight: 244 lbs 09/30/2016 Blood Pressure 1: 130/76 Code: 8480-6 BMI: 45.0 Code: 27506-9 Heart Rate 1: 86 bpm Height: 5'1" SpO2: 98% Weight: 238 lbs 09/10/2016 Blood Pressure 1: 136/68 Code: 8480-6 BMI: 46.3 Code: 88085-6 Heart Rate 1: 83 bpm Height: 5'1" SpO2: 98% Weight: 245 lbs 08/20/2016 Blood Pressure 1: 142/78 Code: 8480-6 BMI: 45.3 Code: 35927-6 Heart Rate 1: 84 bpm Height: 5'1" SpO2: 99% Weight: 240 lbs 06/08/2016 Blood Pressure 1: 134/76 Code: 8480-6 BMI: 44.2 Code: 51781-5 Heart Rate 1: 86 bpm Height: 5'1" SpO2: 96% Weight: 234 lbs 04/02/2016 Blood Pressure 1: 142/70 Code: 8480-6 BMI: 44.6 Code: 04481-3 Heart Rate 1: 78 bpm Height: 5'1" SpO2: 97% Weight: 236 lbs 01/14/2016 Blood Pressure 1: 146/72 Code: 8480-6 BMI: 44.2 Code: 60954-3 Heart Rate 1: 86 bpm Height: 5'1" SpO2: 96% Weight: 234 lbs 10/02/2015 Blood Pressure 1: 158/76 Code: 8480-6 BMI: 44.2 Code: 75545-2 Heart Rate 1: 67 bpm Height: 5'1" SpO2: 97% Weight: 234 lbs 07/15/2015 Blood Pressure 1: 200/90 Code: 8480-6 Blood Pressure 1: 148/78 Code: 8480-6 BMI: 44.0 Code: 79842-5 Heart Rate 1: 89 bpm Height: 5'1" SpO2: 97% Weight: 233 lbs 06/10/2015 Blood Pressure 1: 140/82 Code: 8480-6 BMI: 44.0 Code: 33493-0 Heart Rate 1: 78 bpm Height: 5'1" [...] wearing crocs and there was a new luxembourger on the floor: her foot didn't move [...] Encounters Encounter Performer Loca tion Codes Date [id number] EST. PATIENT, LEVEL IV Diagnosis: Other acute sinusitis[ICD10: J01.80] Diagnosis: Other allergic rhinitis[ICD10: J30.89] Nata Almanza MD, [facility] CPT-4: 17104 09/02/2018 ([id number]) 58427 EST. 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 P ATIENT, LEVEL III Diagnosis: Localized edema[ICD10: R60.0] Diagnosis: Gastro-esophageal reflux disease without esophagitis[ICD10: K21.9] Edna Almanza MD, [facility] CPT-4: 03779 01/18/2018 ([id number]) 67017 EST. P ATIENT, LEVEL IV Diagnosis: Gastro-esophageal reflux disease without esophagitis[ICD10: K21.9] Diagnosis: Localized edema[ICD10: R60.0] Diagnosis: Essential (primary) hypertension[ICD10: I10] Diagnosis: Hypothyroidism, unspecified[ICD10: E03.9] Diagnosis: Impaired fasting glucose[ICD10: R73.01] Edna Almanza MD, [facility] CPT-4: 89304 01/04/2018 ([id number]) 56017 EST. P ATIENT, LEVEL IV Diagnosis: Essential (primary) hypertension[ICD10: I10] Diagnosis: [facility] (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[ICD10: Z79.01] Diagnosis: Incisional hernia without obstruction or gangrene[ICD10: K43.2] Diagnosis: Right lower quadrant pain[ICD10: R10.31] Sarai Almanza MD, [facility] CPT-4: 81321 09/23/2017 [id number] 68240 EST. 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 PATIENT, LEVEL III Diagnosis: Pain in right hip[ICD10: M25.551] Nata Almanza MD, [facility] CPT-4: 58512 02/24/2017 ([id number]) 56006 EST. P ATIENT, LEVEL IV Diagnosis: Essential (primary) hypertension[ICD10: I10] Diagnosis: Localized edema[ICD10: R60.0] Diagnosis: Pain in right hip[ICD10: M25.551] Sarai Almanza MD, [facility] CPT-4: 14344 11/02/2016 ([id number]) 63142 EST. P ATIENT, LEVEL IV Diagnosis: Essential (primary) hypertension[ICD10: I10] Diagnosis: Localized edema[ICD10: R60.0] Sarai Almanza MD, [facility] CPT-4: 35580 09/30/2016 65542 EST. PATIENT, LEVEL IV Diagnosis: Localized edema[ICD10: R60.0] Diagnosis: Pain in joints of left hand[ICD10: M25.542] Diagnosis: Pain in joints of right hand[ICD10: M25.541] Ntaa Almanza MD, [facility] CPT-4: 62653 09/10/2016 24667 EST. PATIENT, LEVEL IV Diagnosis: Localized edema[ICD10: R60.0] Diagnosis: Pain in joints of left hand[ICD10: M25.542] Diagnosis: Pain in joints of right hand[ICD10: M25.541] Diagnosis: Other fatigue[ICD10: R53.83] Nata Almanza MD, [facility] CPT-4: 48600 08/20/2016 23272 EST. PATIENT, LEVEL IV Diagnosis: Essential (primary) hypertension[ICD10: I10] Diagnosis: Other care home (current) drug therapy[ICD10: Z79.899] Diagnosis: Tinnitus, bilateral[ICD10: H93.13] Nata Almanza MD, [facility] CPT-4: 68754 06/08/2016 97916 EST. PATIENT, LEVEL IV Diagnosis: Other allergic rhinitis[ICD10: J30.89] Diagnosis: Acute laryngopharyngitis[ICD10: J06.0] Nata Almanza MD, [facility] CPT-4: 73309 04/02/2016 25290 EST. PATIENT, LEVEL IV Diagnosis: Left upper quadrant pain[ICD10: R10.12] Nata Almanza MD, [facility] CPT-4: 14582 01/14/2016 80299 EST. PATIENT, LEVEL IV Diagnosis: Pain in left shoulder[ICD10: M25.512] Diagnosis: Body mass index (BMI) 40.0-44.9, adult[ICD10: Z68.41] Nata Almanza MD, [facility] CPT-4: 79922 10/02/2015 27394 EST. 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: Other tack cutter (current) drug therapy[ICD10: Z79.899] [facility] CPT-4: 58770 06/10/2015 ([id number]) [facility] - LEVEL 4 Diagnosis: ESSENTIAL HYPERTENSION[ICD9: 401.9] Diagnosis: HYPOTHYROIDISM[ICD9: 244.9] Diagnosis: ENCNTR LONG-RX USE NEC[ICD9: V58.69] Diagnosis: HYPERLIPIDEMIA[ICD9: 272.4] Diagnosis: Vitamin B12 deficiency[ICD9: 266.2] Diagnosis: Status post gastric surgery[ICD9: V45.89] Diagnosis: Snoring[ICD9: 786.09] [facility] CPT-4: 13965 01/22/2015 Plan of Care Planned Activity Notes C odes Status Date Patient Education: Patient Medication Summary Completed 10/05/2018 Care Plan: Lipid Pending 10/05/2018 Visit Plan: Sinusitis - Pt has [...] allergy spray. 09/02/2018 Appointment: Nata Hsu WPtel: [address] [place], [place] [phone] (15 min) Moderate 09/02/2018 Patient Education: Patient [...] Hgb A1C 04/14/2018 Appointment: Edna Douglas WPtel: [phone] [phone] (15 min) Moderate 04/14/2018 Patient Education: [...] to further attempt to reduce peripheral edema. VZYX-tmockqru-ujojiqbe prilosec BID and carafate QID -discussed low spice, low acidic diet 01/18/2018 Appointment: Edna Douglas WPtel: [phone] [phone] (15 min) Moderate 01/18/2018 Patient Education: [...] control. 01/04/2018 Appointment: Edna Douglas WPtel: [phone] [phone] (30 min) Complex 01/04/2018 Patient Education: Patient Medication Summary Completed 01/04/2018 Care Plan: SCREENINGMAMMOGRAPHYDIGITAL LOINC : 16927-0 Pending 01/04/2018 Visit Plan: Abdominal hernia - not able to be taken to surgery by local providers and pt has been seen at [facility] and that surgeon felt like [place] would be better served by Dr. Betancur at [facility] I h avanalia recommended a referral to dr. cecelia betancur [...] home. 09/23/2017 Appointment: [phone] [place] (15 min) Moderate 09/23/2017 Patient [...] medications. 05/27/2017 [phone] [place] (30 min) Complex 05/27/2017 Patient Education: [...] [place]. 02/24/2017 App[facility]ment: [phone] [place] (30 min) Complex 02/24/2017 Patient [...] [place]. 11/02/2016 Appointment: Sarai Almanza WPtel: [phone] [facility] (15 min) Moderate 11/02/2016 Patient Education: Patient [...] peripheral edema. 09/30/2016 Appointment: Sarai Almanza WPtel: [facility] (15 min) Moderate 09/30/2016 Patient Education: [...] peripheral edema. 09/10/2016 Appointment: Nata Hsu WPtel: [phone] [facility] (30 min) Complex 09/10/2016 Patient Education: Patient [...] peripheral edema. 08/20/2016 Appointment: Nata Hsu WPtel: [phone] [facility] (30 min) Complex 08/20/2016 Patient Education: Patient Medication Summary Completed 08/20/2016 Referral: Otf Lee [address] Referral Initiated 07/02/2016 Visit Plan: Chronic [...] 06/08/2016 Care Plan: Referral Order SNOMED-CT : [id number] Pending 06/08/2016 Visit Plan: URI - Pt [...] spray. 04/02/2016 Appointment: Nata Hsu WPtel: [phone] [facility] (30 min) Complex 04/02/2016 Patient Education: Patient [...] Edna Douglas WPtel: [phone] [place] (30 min) Complex 01/14/2016 Patient Education: Patient Medication Summary Completed 01/14/2016 Patient Education: Obesity Completed 01/14/2016 Care Plan: BMI Above normal followup DAVID F-MGMT EDUC & TRAIN 1 PT Pending 10/24/2015 Care Plan: X-RAY EXAM OF SHOULDER LOINC : 05818-6 Pending 10/24/2015 Visit Plan: Left shoulder pain [...] weight check. 10/02/2015 Appointment: Edna Douglas WPtel: [address] [place], [place] [phone] [place] (15 min) Moderate 10/02/2015 Patient Education: [...] ses Completed 06/10/2015 Appointment: Sarai Almanza WPtel: [address] [place], [place] [address] (15 min) Moderate 04/22/2015 Visit Plan: Hypertension [...] have surgical fixation - planning occurring at [facility]. Snoring - Sleep apnea symptoms with [...] to medications. 01/22/2015 Appointment: Sarai Almanza WPtel: [address] [place], [place] [phone] [place] ([place]) New Patient 01/22/2015 Patient Education: Patient Medication Summary Completed 01/22/2015 Patient Education: Hypertension Completed 01/22/2015 Referral: [id number] Referral Initiated Instructions Comment . Chronic Anticoagul [...] pt has been seen at [facility] and that surgeon felt like Kat would [...] to further attempt to reduce peripheral edema. EHSU-vwrbezaz-tvbbmlvh prilosec BID and carafate QID -discussed low [...] have surgical fixation - planning occurring at [facility]. Snoring - Sleep apnea symptoms with [...]
--- OUTSIDE RECORDS SUMMARY | 2020-01-16 23:13 | XMS REPORT | CCD ---
Author Author Kat Almanza Organization Sarai Almanza MD, [facility] Address [address] [place] [address] Phone Care Team Providers Care Supervisor Drying And Winding Name Role Phone PP Unavailable CCM Unavailable Summary Purpose Interface Exchange Insurance Providers Payer name Policy type / Coverage type Covered republican ID Effective Begin Date Effective End Date WPS Medicare Part B Medicare Part B [id number] 2017 Unknown [employer] [place] Medicare Part B [id number] 2017 Unknown Family history Father Diagnosis Age At Onset Hyperlipidemia Unknown Heart Attack Unknown Mother Diagnosis Age At Onset Arthritis Unknown Social History Social History Element Codes Description Effective Dates Marital status Unknown M arried Nathan 09/30/2016 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 Number of children Unknown 3 01/22/[address]: 222022436 Never smoker 01/22/[address]: 332937271 Never drinks alcohol 01/22/2015 Allergies, Adverse Reactions, Alerts Substance Reaction Codes Entered Date Inactivated Date Status * NO KNOWN DRUG ORIN RGIES Unknown 01/22/2015 No Inactive Date Active Past Medical History Illness Codes Condition Status Onset Date Resolved Date Hypothyroidism, unsp ecified ICD-9: 244.9 ICD-10: E03.9 Active 05/27/2017 Unknown detention (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 ICD-9: V58.61 ICD-10: [...] ICD-9: 789.03 ICD-10: R10.31 Active 09/23/2017 Unknown Mixed hyperlipidemia ICD-9: 272.4 ICD-10: E78.2 Active 06/09/2015 Unknown Dysuria ICD-9: 788.1 ICD-10: R30.0 Active [...] 780.79 ICD-10: R53.83 Active 08/20/2016 Unknown Other fci (cur rent) drug therapy ICD-9: V58.69 ICD-10: [...] Condition Codes Effectiv e Dates Condition Status Hypothyroidism, unsp ecified ICD-9: 244.9 ICD-10: E03.9 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/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 ICD-9: V58.61 [...] pain ICD-9: 789.03 ICD-10: R10.31 09/23/2017 Active Mixed hyperlipidemia ICD-9: 272.4 ICD-10: E78.2 06/09/2015 Active Dysuria ICD-9: 788.1 ICD-10: R30.0 03/05/2017 [...] ICD-9: 780.79 ICD-10: R53.83 08/20/2016 Active Other fci (cur rent) drug therapy ICD-9: V58.69 ICD-10: [...] E R 20 mEq tablet,extended release RxNorm: 428520 1 Tablet(s) PO daily 10/03/2018 01/30/2019 Active Carafate 1 gram tablet RxNorm: 341125 TAKE ONE TABLET BY MOUTH BEFORE MEALS AN D AT BEDTIME 09/26/2018 11/16/2018 Active Plavix 75 mg tablet RxNorm: 802165 TAKE ONE TABLET BY MOUTH DAILY 09/02/2018 02/28/2019 Ac tive prednisone 10 mg tablet RxNorm: 104281 Tablet(s) PO 09/02/2018 No Stop Date Active 60,60,50,50,40,40,30,30,20,20,10,10 Synthroid 125 mcg ta blet RxNorm: 832862 1 Tablet(s) PO daily 09/02/2018 08/27/2019 Active potassium chloride E R 20 mEq tablet,extended release RxNorm: 682533 1 Tablet(s) PO daily 09/02/2018 09/01/2018 Inactive potassium chloride E R 20 mEq tablet,extended release RxNorm: 071510 1 Tablet(s) PO daily 09/02/2018 10/02/2018 Inactive Synthroid 125 mcg ta blet RxNorm: 323533 1 Tablet(s) PO daily 09/02/2018 09/01/2018 Inactive Keflex 500 mg capsule RxNorm: 546970 1 Capsule(s) PO TID 09/02/2018 09/08/2018 Inactive Kenalog 40 mg/mL maxine pension for injection RxNorm: 7909331 Milliliter(s) Inj 09/02/2018 09/02/2018 In active Lipitor 40 mg tablet RxNorm: 511701 TAKE ONE TABLET BY MOUTH DAILY 07/29/2018 07/23/2019 Ac tive Coumadin 1 mg tablet RxNorm: 740797 TAKE ONE TABLET BY MOUTH DAILY 07/29/2018 10/26/2018 Ac tive Carafate 1 gram tablet RxNorm: 209445 TAKE ONE TABLET BY MOUTH BEFORE MEALS AN D AT BEDTIME 07/28/2018 09/17/2018 Inactive Coumadin 4 mg tablet RxNorm: 095821 2 Tablet(s) daily 07/11/2018 02/05/2019 Active Generi c For:COUMADIN 4MG 07/22/2017 8:58:26 AM Coumadin 5 mg tablet RxNorm: 619124 Tablet(s) TAKE 1 TABLET BY MOUTH DIRE CTED 07/08/2018 01/03/2019 Ac tive Generic For:COUMADIN 5MG TAB 03/21/2018 9:13:00 AM Coumadin 4 mg tablet RxNorm: 242954 Tablet(s) TAKE 1 TABLET BY MOUTH THREE T IMES PER WEEK (WEDNESDAY, WEDNESDAY AND WEDNESDAY) 07/08/2018 07/10/2018 Inactive Gene andre For:COUMADIN 4MG 07/22/2017 8:58:26 AM Coumadin 1 mg tablet RxNorm: 012445 1 Tablet(s) PO daily 07/08/2018 08/06/2018 Inactive venlafaxine ER 75 mg capsule,extended release 24 hr RxNorm: 824878 Capsule(s) TAKE 1 CAPSULE BY MOUTH ONCE DAILY 06/23/2018 06/17/2019 Active Generic For:*EFFEXOR XR 75MG 06/19/2017 12:23:45 PM sodium bicarbonate 6 50 mg tablet RxNorm: 203188 Tablet(s) TAKE 2 TABL ETS BY MOUTH TWICE DAILY 06/23/2018 12/19/2018 Active 12/20/2017 9:10:59 AM Coumadin 1 mg tablet RxNorm: 305861 1 Tablet(s) PO daily 06/17/2018 07/07/2018 Inactive Coumadin 1 mg tablet RxNorm: 567089 1 Tablet(s) PO daily 06/17/2018 06/16/2018 Inactive clonazepam 0.5 mg ta blet RxNorm: 900684 1 Tablet(s) PO BID 06/08/2018 11/04/2018 Active spironolactone 25 mg tablet RxNorm: 857004 TAKE 1 TABLET BY MOUT H EVERY DAY 05/18/2018 05/12/2019 Ac tive Generic For:*ALDACTONE 25MG 05/18/2018 8:57:50 AM Carafate 1 gram tablet RxNorm: 548983 TAKE ONE TABLET BY MOUTH BEFORE MEALS AN D AT BEDTIME 05/18/2018 07/12/2018 Inactive Generic For:CARAFATE 1GM 1 07/18/2017 8:38:28 AM Synthroid 137 mcg ta blet RxNorm: 953794 TAKE 1 TABLET BY MOUT H ONCE DAILY 05/18/2018 08/30/2018 In active Generic For:SYNTHROID 137MCG TAB 2017 8:57:54 AM allopurinol 300 mg t ablet RxNorm: 765703 TAKE 1 TABLET BY MOUT H ONCE DAILY. 04/18/2018 10/14/2018 Ac tive Generic For:ZYLOPRIM 300 MG TABLET 03/22 9:13:47 AM Lasix 20 mg tablet RxNorm: 950614 TAKE ONE TABLET BY MOUTH DAILY 04/18/2018 08/15/2018 In active Generic For:LASIX 20MG 04/18/2018 9:13: 50 AM Carafate 1 gram tablet RxNorm: 778650 TAKE ONE TABLET BY MOUTH BEFORE MEALS AN D AT BEDTIME 04/18/2018 05/17/2018 Inactive Generic For:CARAFATE 1GM 1 9:32:51 AM Coumadin 5 mg tablet RxNorm: 961561 TAKE 1 TABLET BY MOUTH DIRECTED 03/21/2018 07/07/2018 In active Generic For:COUMADIN 5MG TAB 03/21/2018 9:13:00 AM Carafate 1 gram tablet RxNorm: 908913 TAKE ONE TABLET BY MOUTH BEFORE MEALS AN D AT BEDTIME 03/21/2018 04/17/2018 Inactive Generic For:CARAFATE 1GM 1 9:14:24 AM Carafate 1 gram tablet RxNorm: 547003 1 Tablet(s) PO AC & HS 02/17/2018 03/20/2018 Inactive atenolol 100 mg tablet RxNorm: 350582 1 Tablet(s) PO daily 02/04/2018 09/01/2018 Inactive atenolol 50 mg tablet RxNorm: 683386 1 Tablet(s) PO daily 02/03/2018 02/03/2018 Inactive omeprazole 20 mg cap sean,delayed release RxNorm: 270349 1 Capsule(s) BID 01/21/2018 01/15/2019 Ac tive Generic For:PRILOSEC 20MG 07/22/2017 8:5 8:20 AM Carafate 1 gram tablet RxNorm: 571887 1 Tablet(s) PO AC & HS 01/21/2018 02/16/2018 Inactive Carafate 1 gram tablet RxNorm: 102625 1 Tablet(s) PO AC & HS 01/18/2018 01/20/2018 Inactive Carafate 1 gram tablet RxNorm: 845804 1 Tablet(s) PO AC & HS 01/18/2018 02/27/2018 Inactive Carafate 1 gram tablet RxNorm: 888099 1 Tablet(s) PO AC & HS TAKE ONE TABLET B Y MOUTH TWICE DAILY 01/18/2018 05/17/2018 Inactive Generic For:CARAFATE 1GM 0 12/20/2017 9:10:56 AM omeprazole 20 mg cap sean,delayed release RxNorm: 534710 Capsule(s) TAKE 1 CAP SEAN BY MOUTH EVERY DAY 01/17/2018 01/20/2018 Inactive Generic For:PRILOSEC 20MG 0 07/22/2017 8:58:20 AM omeprazole 20 mg cap sean,delayed release RxNorm: 790639 Capsule(s) TAKE 1 CAP SEAN BY MOUTH EVERY DAY 01/14/2018 01/16/2018 Inactive Generic For:PRILOSEC 20MG 07/22/2017 8:58:20 AM clonazepam 0.5 mg ta blet RxNorm: 199845 1 Tablet(s) PO BID 01/07/2018 06/05/2018 Inactive Plavix 75 mg tablet RxNorm: 726173 1 Tablet(s) PO daily 01/07/2018 07/05/2018 Inactive Carafate 1 gram tablet RxNorm: 002715 1 Tablet(s) PO AC & HS 01/04/2018 01/17/2018 Inactive Lasix 20 mg tablet RxNorm: 207276 TAKE ONE TABLET BY MOUTH DAILY 12/20/2017 04/17/2018 In active Generic For:LASIX 20MG 12/20/2017 9:11: 03 AM sodium bicarbonate 6 50 mg tablet RxNorm: 149170 TAKE 2 TABLETS BY JAVON TWICE DAILY 12/20/2017 06/17/2018 In active 12/20/2017 9:10:59 AM Carafate 1 gram tablet RxNorm: 503357 TAKE ONE TABLET BY MOUTH TWICE DAILY 12/20/2017 01/17/2018 In active Generic For:CARAFATE 1GM 12/20/2017 9:1 0:56 AM Synthroid 137 mcg ta blet RxNorm: 125097 TAKE 1 TABLET BY MOUT H ONCE DAILY 11/19/2017 05/17/2018 In active Generic For:SYNTHROID 137MCG TAB 2017 8:58:04 AM Detrol LA 4 mg capsu le,extended release RxNorm: 087263 TAKE 1 CAPSULE BY JAVON TH ONCE DAILY 10/20/2017 04/13/2018 Inactive Generic For:DETROL LA 4MG C AP 10/20/2017 9:01:56 AM allopurinol 300 mg t ablet RxNorm: 198799 TAKE 1 TABLET BY MOUT H ONCE DAILY. 10/20/2017 04/17/2018 In active Generic For:ZYLOPRIM 300 MG TABLET 07/2017 9:01:59 AM Coumadin 5 mg tablet RxNorm: 091250 1 Tablet(s) PO UD 10/01/2017 03/20/2018 Inactive cyclobenzaprine 5 mg tablet RxNorm: 132580 1 Tablet(s) PO TID as needed myscle spasm 09/23/2017 10/12/2017 Inactive Lipitor 40 mg tablet RxNorm: 778471 TAKE 1 TABLET BY MOUTH ONCE DAILY 09/20/2017 07/28/2018 In active Generic For:LIPITOR 40MG 09/20/2017 8:5 6:04 AM atenolol 100 mg tablet RxNorm: 260790 1 Tablet(s) PO daily 08/30/2017 02/03/2018 Inactive atenolol 50 mg tablet RxNorm: 176571 1 Tablet(s) PO daily 08/30/2017 08/30/2017 Inactive Lovenox 30 mg/0.3 mL subcutaneous syringe RxNorm: 463478 0.3 Milliliter(s) SQ Q12H 08/24/2017 09/06/2017 In active Lasix 20 mg tablet RxNorm: 576660 TAKE ONE TABLET BY MOUTH DAILY 08/23/2017 12/19/2017 In active Generic For:LASIX 20MG 08/21/2017 9:04: 27 AM Synthroid 137 mcg ta blet RxNorm: 901109 TAKE 1 TABLET BY MOUT H ONCE DAILY 08/23/2017 11/18/2017 In active Generic For:SYNTHROID 137MCG TAB 2017 9:04:30 AM Lovenox 30 mg/0.3 mL subcutaneous syringe RxNorm: 033202 0.3 Milliliter(s) SQ Q12H 08/10/2017 08/23/2017 In active clonazepam 0.5 mg ta blet RxNorm: 845603 1 Tablet(s) PO BID 08/04/2017 12/30/2017 Inactive Coumadin 4 mg tablet RxNorm: 163235 TAKE 1 TABLET BY MOUTH THREE TIMES PER [place] (WEDNESDAY, WEDNESDAY AND WEDNESDAY) 07/22/2017 02/16/2018 Inactive Generic For:COUMADIN 4MG 07/22/2017 8:58:26 AM omeprazole 20 mg cap sean,delayed release RxNorm: 787010 TAKE 1 CAPSULE BY JAVON TH EVERY DAY 07/22/2017 01/13/2018 Inactive Generic For:PRILOSEC 20MG 07/22/2017 8: 58:20 AM Coumadin 4 mg tablet RxNorm: 480850 TAKE 1 TABLET BY MOUTH THREE TIMES PER [place] (WEDNESDAY, WEDNESDAY AND WEDNESDAY) 07/22/2017 02/16/2018 Inactive Generic For:COUMADIN 4MG 07/22/2017 8:58:26 AM sodium bicarbonate 6 50 mg tablet RxNorm: 257133 TAKE 2 TABLETS BY JAVON TH TWICE DAILY 06/22/2017 12/18/2017 In active 06/19/2017 12:23:30 PM venlafaxine ER 75 mg capsule,extended release 24 hr RxNorm: 482078 TAKE 1 CAPSULE BY MOUTH ONCE DAILY 06/22/2017 06/16/2018 Inactive Generic For:*EFFEXOR XR 75M G 06/19/2017 12:23:45 PM Coumadin 5 mg tablet RxNorm: 146065 1 Tablet(s) PO UD 06/01/2017 09/30/2017 Inactive Keflex 500 mg capsule RxNorm: 733392 1 Capsule(s) PO TID 05/27/2017 06/02/2017 Inactive Synthroid 137 mcg ta blet RxNorm: 165244 TAKE 1 TABLET BY MOUT H ONCE DAILY 05/24/2017 08/21/2017 In active Generic For:SYNTHROID 137MCG TAB 2016 8:55:59 AM Carafate 1 gram tablet RxNorm: 731935 TAKE ONE TABLET BY MOUTH TWICE DAILY 05/24/2017 12/19/2017 In active Generic For:CARAFATE 1GM 05/24/2017 8:5 5:54 AM spironolactone 25 mg tablet RxNorm: 512252 1 Tablet(s) PO daily 05/24/2017 05/17/2018 Inactive Detrol LA 4 mg capsu le,extended release RxNorm: 194448 1 Capsule(s) PO daily TAKE 1 CAPSULE BY MOUTH ONCE DAILY 05/10/2017 10/19/2017 Inactive Generic For:DETROL LA 4MG CAP 02/19/2017 2:36:00 PM Lasix 20 mg tablet RxNorm: 395551 TAKE ONE TABLET BY MOUTH DAILY 04/23/2017 08/20/2017 In active Generic For:LASIX 20MG 04/23/2017 9:04: 01 AM Coumadin 4 mg tablet RxNorm: 379851 TAKE 1 TABLET BY MOUTH THREE TIMES PER [place] (WEDNESDAY, WEDNESDAY AND WEDNESDAY) 04/23/2017 07/21/2017 Inactive Generic For:COUMADIN 4MG 04/23/2017 9:04:05 AM allopurinol 300 mg t ablet RxNorm: 609410 TAKE 1 TABLET BY MOUT H ONCE DAILY. 04/23/2017 10/19/2017 In active Generic For:ZYLOPRIM 300 MG TABLET 08/2016 9:03:57 AM potassium chloride 2 0 mEq/15 mL oral liquid RxNorm: 571507 Milliliter(s) 30 Milliliter(s) (40mEq) PO daily 03/24/2017 07/21/2017 Inactive Lovenox 30 mg/0.3 mL subcutaneous syringe RxNorm: 486227 0.3 Milliliter(s) SQ Q12H 03/22/2017 03/26/2017 In active Lovenox 30 mg/0.3 mL subcutaneous syringe RxNorm: 357064 0.3 Milliliter(s) SQ Q12H 03/19/2017 03/20/2017 In active Lovenox 30 mg/0.3 mL subcutaneous syringe RxNorm: 160480 0.3 Milliliter(s) SQ Q12H 03/16/2017 03/18/2017 In active clonazepam 0.5 mg ta blet RxNorm: 272344 1 Tablet(s) PO BID 03/02/2017 07/28/2017 Inactive Lovenox 30 mg/0.3 mL subcutaneous syringe RxNorm: 286506 1 injection SQ BID do NOT take the night time dose the day before surgery, or the morning dose the day of surgery 03/01/2017 03/07/2017 Inactive Lovenox 30 mg/0.3 mL subcutaneous syringe RxNorm: 026286 1 injection SQ BID 03/01/2017 02/28/2017 In active Detrol LA 4 mg capsu le,extended release RxNorm: 907536 TAKE 1 CAPSULE BY JAVON TH ONCE DAILY 02/19/2017 05/09/2017 Inactive Generic For:DETROL LA 4MG C AP 02/19/2017 2:36:00 PM hydrocodone 5 mg-humberto taminophen 325 mg tablet RxNorm: 535338 1-2 Tablet(s) PO Q6 P RN 02/04/2017 No Stop Date Active Zetia 10 mg tablet RxNorm: 504291 TAKE 1 TABLET BY MOUTH DAILY 01/25/2017 04/13/2018 Inactive 01/23/2017 9:03:48 AM omeprazole 20 mg cap sean,delayed release RxNorm: 862030 TAKE 1 CAPSULE BY JAVON TH EVERY DAY 01/25/2017 07/21/2017 Inactive Generic For:PRILOSEC 20MG 01/23/2017 9: 03:45 AM Coumadin 4 mg tablet RxNorm: 259511 TAKE 1 TABLET BY MOUTH THREE TIMES PER [place] (WEDNESDAY, WEDNESDAY AND WEDNESDAY) 01/25/2017 04/22/2017 Inactive Generic For:COUMADIN 4MG 01/23/2017 9:03:51 AM sodium bicarbonate 6 50 mg tablet RxNorm: 730136 TAKE 2 TABLETS BY JAVON TH TWICE DAILY 12/24/2016 06/21/2017 In active 12/24/2016 9:09:27 AM Lasix 20 mg tablet RxNorm: 038702 1 Tablet(s) PO daily 12/24/2016 04/22/2017 Inactive Synthroid 137 mcg ta blet RxNorm: 781565 TAKE 1 TABLET BY MOUT H ONCE DAILY 11/24/2016 05/22/2017 In active Generic For:SYNTHROID 137MCG TAB 2016 9:04:37 AM Coumadin 4 mg tablet RxNorm: 288951 TAKE 1 TABLET BY MOUTH THREE TIMES PER [place] (WEDNESDAY, WEDNESDAY AND WEDNESDAY) 11/24/2016 01/22/2017 Inactive Generic For:COUMADIN 4MG 11/24/2016 9:04:41 AM hydrocodone 5 mg-humberto taminophen 325 mg tablet RxNorm: 270790 1-2 Tablet(s) PO Q6 P RN 11/17/2016 02/03/2017 In active Carafate 1 gram tablet RxNorm: 874669 TAKE ONE TABLET BY MOUTH TWICE DAILY 10/27/2016 05/23/2017 In active Generic For:CARAFATE 1GM 10/26/2016 8:3 9:42 AM allopurinol 300 mg t ablet RxNorm: 542087 Tablet(s) TAKE 1 TABL ET BY MOUTH ONCE DAILY. 10/26/2016 04/22/2017 Inactive Lipitor 40 mg tablet RxNorm: 382533 1 Tablet(s) PO daily 09/25/2016 09/19/2017 Inactive Coumadin 4 mg tablet RxNorm: 395987 TAKE 1 TABLET BY MOUTH THREE TIMES PER [place] (WEDNESDAY, WEDNESDAY AND WEDNESDAY) 09/25/2016 11/23/2016 Inactive Generic For:COUMADIN 4MG 09/25/2016 8:55:58 AM Zetia 10 mg tablet RxNorm: 993911 1 Tablet(s) PO daily 09/25/2016 01/22/2017 Inactive gave 1 month of samples clonazepam 0.5 mg ta blet RxNorm: 237518 1 Tablet(s) PO BID 09/21/2016 02/16/2017 Inactive Lasix 20 mg tablet RxNorm: 958145 1 Tablet(s) PO daily 09/15/2016 12/23/2016 Inactive potassium chloride 2 0 mEq/15 mL oral liquid RxNorm: 599680 Milliliter(s) 30 Milliliter(s) (40mEq) PO daily 09/15/2016 01/12/2017 Inactive Lasix 20 mg tablet RxNorm: 391967 2 Tablet(s) PO daily 09/10/2016 09/12/2016 Inactive Lasix 20 mg tablet RxNorm: 332596 1 Tablet(s) PO daily 08/28/2016 08/30/2016 Inactive Lasix 20 mg tablet RxNorm: 820882 1 Tablet(s) PO daily 08/20/2016 08/22/2016 Inactive Detrol LA 4 mg capsu le,extended release RxNorm: 686831 TAKE 1 CAPSULE BY JAVON TH ONCE DAILY 07/27/2016 02/18/2017 Inactive Generic For:DETROL LA 4MG C AP 07/27/2016 9:08:27 AM Coumadin 4 mg tablet RxNorm: 244376 1 Tablet(s) PO 3 x week wed and sun 07/27/2016 09/24/2016 In active omeprazole 20 mg cap sean,delayed release RxNorm: 376532 Capsule(s) PO TAKE 1 CAPSULE BY MOUTH ONCE DAILY 07/27/2016 01/22/2017 Inactive venlafaxine ER 75 mg capsule,extended release 24 hr RxNorm: 133916 1 Capsule(s) PO daily 06/29/2016 06/21/2017 Inactive sodium bicarbonate 6 50 mg tablet RxNorm: 724297 TAKE 2 TABLETS BY JAVON TWICE DAILY 06/29/2016 12/23/2016 In active 06/27/2016 9:05:39 AM Coumadin 4 mg tablet RxNorm: 010262 1 Tablet(s) PO 3 x week wed and sun 06/09/2016 06/08/2016 In active Coumadin 4 mg tablet RxNorm: 549839 1 Tablet(s) PO 3 x week wed and sun 06/09/2016 07/26/2016 In active Zetia 10 mg tablet RxNorm: 674160 1 Tablet(s) PO daily 06/09/2016 06/08/2016 Inactive gave 1 month of samples Zetia 10 mg tablet RxNorm: 062954 1 Tablet(s) PO daily 06/09/2016 09/24/2016 Inactive gave 1 month of samples Effexor 75 mg tablet RxNorm: 608582 1 Tablet(s) PO daily 06/08/2016 06/28/2016 Inactive spironolactone 25 mg tablet RxNorm: 180485 1 Tablet(s) PO daily 06/08/2016 05/23/2017 Inactive Synthroid 137 mcg ta blet RxNorm: 403123 1 Tablet(s) PO daily 05/07/2016 11/02/2016 Inactive allopurinol 300 mg t ablet RxNorm: 156295 Tablet(s) TAKE 1 TABL ET BY MOUTH ONCE DAILY. 04/28/2016 10/24/2016 Inactive clonazepam 0.5 mg ta blet RxNorm: 698432 1 Tablet(s) PO BID 04/20/2016 09/15/2016 Inactive Flonase Allergy Reli ef 50 mcg/actuation nasal spray,suspension RxNorm: 4484659 1 [place] NASAL BID 04/02/2016 No Stop Date Active Zithromax Z-Thomas 250 mg tablet RxNorm: 015026 Tablet(s) PO 04/02/2016 08/27/2016 Inactive cetirizine 10 mg tablet RxNorm: 0006321 1 Tablet(s) PO daily 04/02/2016 05/01/2016 Inactive Carafate 1 gram tablet RxNorm: 881903 Tablet(s) TAKE 1 TABLET TWICE A DAY FOR 30 DAYS 03/30/2016 10/25/2016 Inactive Generic For:CARAFATE 1GM 02/08/2015 12:3 6:39 PM Plavix 75 mg tablet RxNorm: 609988 1 Tablet(s) PO daily 03/11/2016 09/06/2016 Inactive sodium bicarbonate 6 50 mg tablet RxNorm: 200128 Tablet(s) 2 Tablet(s) PO BID 02/28/2016 06/26/2016 In active omeprazole 20 mg cap sean,delayed release RxNorm: 813931 Capsule(s) PO TAKE 1 CAPSULE BY MOUTH ONCE DAILY 01/31/2016 07/26/2016 Inactive Fish Oil 1,000 mg ca psule RxNorm: 1 Capsule(s) PO BID 01/14/2016 No Stop Date Active Synthroid 137 mcg ta blet RxNorm: 175206 1 Tablet(s) PO daily 01/14/2016 05/06/2016 Inactive Detrol LA 4 mg capsu le,extended release RxNorm: 019346 TAKE 1 CAPSULE BY JAVON TH ONCE DAILY 12/30/2015 07/26/2016 Inactive Generic For:DETROL LA 4MG C AP 12/30/2015 9:11:01 AM potassium chloride 2 0 mEq/15 mL oral liquid RxNorm: 492261 Milliliter(s) 30 Milliliter(s) (40mEq) PO daily 12/02/2015 03/30/2016 Inactive sodium bicarbonate 6 50 mg tablet RxNorm: 025348 Tablet(s) 2 Tablet(s) PO BID 10/31/2015 02/27/2016 In active Lipitor 40 mg tablet RxNorm: 804444 1 Tablet(s) PO daily 10/09/2015 09/24/2016 Inactive sodium bicarbonate 6 50 mg tablet RxNorm: 197040 2 Tablet(s) PO BID 10/01/2015 10/30/2015 Inactive allopurinol 300 mg t ablet RxNorm: 240505 TAKE 1 TABLET BY MOUT H ONCE DAILY. 10/01/2015 04/27/2016 In active Generic For:ZYLOPRIM 300 MG TABLET 09/19 9:21:15 AM clonazepam 0.5 mg ta blet RxNorm: 267885 1 Tablet(s) PO BID 09/30/2015 04/19/2016 Inactive Coumadin 5 mg tablet RxNorm: 829735 1 Tablet(s) PO daily 09/27/2015 05/31/2017 Inactive Generic For:COUMADIN 5MG TAB N O T I C E PRESCRIPTION PREVIOUSLY AUTHORIZED BY DOCTOR:BOBBY ZULETA Synthroid 125 mcg ta blet RxNorm: 390200 1 Tablet(s) PO daily 09/27/2015 09/26/2015 Inactive Synthroid 125 mcg ta blet RxNorm: 781089 1 Tablet(s) PO daily 09/27/2015 01/13/2016 Inactive Carafate 1 gram tablet RxNorm: 475531 Tablet(s) TAKE 1 TABLET TWICE A DAY FOR 30 DAYS 09/02/2015 03/29/2016 Inactive Generic For:CARAFATE 1GM 02/08/2015 12:3 6:39 PM sodium bicarbonate 6 50 mg tablet RxNorm: 955669 2 Tablet(s) PO BID 09/02/2015 09/30/2015 Inactive Prilosec 20 mg capsu le,delayed release RxNorm: 337877 TAKE 1 CAPSULE BY JAVON TH ONCE DAILY 08/02/2015 01/28/2016 Inactive Generic For:PRILOSEC 20MG 08/02/2015 10:03:09 AM N O T I C E PRESCRIPTION PREVIOUSLY AUTHORIZED BY DOCTOR:BOBBY ZULETA Zyrtec 10 mg capsule RxNorm: 0693586 1 Capsule(s) PO daily 07/15/2015 08/13/2015 Inactive Keflex 500 mg capsule RxNorm: 510728 1 Capsule(s) PO TID 07/15/2015 07/21/2015 Inactive cetirizine 10 mg cap sean RxNorm: 4531449 1 Capsule(s) PO daily 07/15/2015 08/13/2015 Inactive hydrocodone 5 mg-humberto taminophen 325 mg tablet RxNorm: 038109 1-2 Tablet(s) PO Q6 P RN 06/10/2015 11/16/2016 In active sodium bicarbonate 6 50 mg tablet RxNorm: 392763 2 Tablet(s) PO BID 06/03/2015 08/31/2015 Inactive Detrol LA 4 mg capsu le,extended release RxNorm: 498028 TAKE 1 CAPSULE BY JAVON TH ONCE DAILY 06/03/2015 12/29/2015 Inactive Generic For:DETROL LA 4MG C AP N O T I C E PRESCRIPTION PREVIOUSLY AUTHORIZED BY DOCTOR:BOBBY ZUELTA atenolol 50 mg tablet RxNorm: 200370 1 Tablet(s) PO daily TAKE 1 TABLET BY MO UTH DAILY 05/07/2015 08/23/2017 Inactive Generic For:TENORMIN 50MG 05/04/2015 9:07:22 AM spironolactone 25 mg tablet RxNorm: 159987 1 Tablet(s) PO daily 05/06/2015 06/07/2016 Inactive venlafaxine ER 75 mg capsule,extended release 24 hr RxNorm: 610059 1 Capsule(s) PO daily 05/04/2015 06/28/2016 Inactive atenolol 50 mg tablet RxNorm: 946628 TAKE 1 TABLET BY MOUTH DAILY 05/04/2015 05/06/2015 Inactive Generic For:TENORMIN 50MG 05/04/2015 9: 07:22 AM Synthroid 150 mcg ta blet RxNorm: 581658 TAKE 1 TABLET BY MOUT H ONCE DAILY. 04/05/2015 09/26/2015 In active Generic For:SYNTHROID 150MCG TAB 2014 4:45:40 PM N O T I C E PRESCRIPTION PREVIOUSLY AUTHORIZED BY DOCTOR:BOBBY ZULETA Effexor 75 mg tablet RxNorm: 035223 1 Tablet(s) PO daily 04/05/2015 07/03/2015 Inactive Coumadin 5 mg tablet RxNorm: 964175 TAKE 1 AND 1/2 TABLETS BY MOUTH ONCE MYRANDA LY 04/04/2015 09/26/2015 In active Generic For:COUMADIN 5MG TAB N O T I C E PRESCRIPTION PREVIOUSLY AUTHORIZED BY DOCTOR:BOBBY ZULETA clonazepam 0.5 mg ta blet RxNorm: 384438 1 Tablet(s) PO BID 03/13/2015 11/05/2015 Inactive sodium bicarbonate 6 50 mg tablet RxNorm: 797366 2 Tablet(s) PO BID 03/08/2015 06/02/2015 Inactive allopurinol 300 mg t ablet RxNorm: 260876 TAKE 1 TABLET BY MOUT H ONCE DAILY. 03/05/2015 09/30/2015 In active N O T I C E PRESCRIPTION PREVIOUSLY A UTHORIZED BY DOCTOR:BOBBY ZULETA Plavix 75 mg tablet RxNorm: 096093 1 Tablet(s) PO daily 02/12/2015 09/09/2015 Inactive clonazepam 0.5 mg ta blet RxNorm: 024247 1 Tablet(s) PO BID 02/11/2015 03/11/2015 Inactive Carafate 1 gram tablet RxNorm: 225976 TAKE 1 TABLET TWICE A DAY FOR 30 DAYS 02/08/2015 02/07/2015 In active Generic For:CARAFATE 1GM 02/08/2015 12:3 6:39 PM Carafate 1 gram tablet RxNorm: 640417 Tablet(s) TAKE 1 TABLET TWICE A DAY FOR 30 DAYS 02/08/2015 09/01/2015 Inactive Generic For:CARAFATE 1GM 02/08/2015 12:3 6:39 PM potassium chloride 2 0 mEq/15 mL oral liquid RxNorm: 456680 30 Milliliter(s) (40m Eq) PO daily 02/05/2015 12/01/2015 Inactive atenolol 50 mg tablet RxNorm: 822535 1 Tablet(s) PO daily 02/04/2015 05/03/2015 Inactive [SAVINGS FOR NON-COVERED DRUGS -- BIN:00 [id number], PCN: [id number], Group: XXXXX, ID# [id number], Questions: . THIS IS NOT INSURANCE.] potassium chloride 2 0 mEq/15 mL oral liquid RxNorm: 408190 30 Milliliter(s) (40m Eq) PO daily 01/08/2015 02/04/2015 Inactive potassium chloride 2 0 mEq/15 mL oral liquid RxNorm: 725198 30 Milliliter(s) (40m Eq) PO daily 12/07/2014 01/07/2015 Inactive atenolol 50 mg tablet RxNorm: 982271 1 Tablet(s) PO daily 11/09/2014 11/08/2014 Inactive atenolol 50 mg tablet RxNorm: 279472 1 Tablet(s) PO daily 11/09/2014 02/03/2015 Inactive [SAVINGS FOR NON-COVERED DRUGS -- BIN:00 3585, PCN: [id number], Group: XXXXX, ID# [id number], Questions: . THIS IS NOT INSURANCE.] Voltaren 1 % topical gel RxNorm: 366246 TOP No St art Date Active verapamil ER (HS) 24 0 mg tablet,extended release 24 hr RxNorm: 746574 1 Tablet(s) PO daily No Start Date Active aspirin 81 mg tablet RxNorm: 103506 1 Tablet(s) PO daily No Start Date Active Zofran 4 mg tablet RxNorm: 381121 1 Tablet(s) PO PRN No Start Date Active B12 1000 mcg RxNorm: 1 Tablet(s) PO daily No Start Date Active magnesium oxide 400 mg capsule RxNorm: 031982 2 Capsule(s) PO BID No Start Date Active Synthroid 150 mcg ta blet RxNorm: 981027 1 Tablet(s) PO daily No Start Date 04/04/2015 Inactive Coumadin 5 mg tablet RxNorm: 466900 1 Tablet(s) PO daily No Start Date 04/03/2015 Inactive cranberry 1,000 mg c apsule RxNorm: 363072 1 Capsule(s) PO daily No Start Date 04/13/2018 Inactive allopurinol 300 mg t ablet RxNorm: 675569 1 Tablet(s) PO daily No Start Date 03/04/2015 Inactive Prilosec 20 mg capsu le,delayed release RxNorm: 220152 1 Capsule(s) PO PRN No Start Date 08/01/2015 Inactive potassium chloride 2 0 mEq/15 mL oral liquid RxNorm: 443132 30 Milliliter(s) (40m Eq) PO daily No Start Date 12/06/2014 Inactive atenolol 50 mg tablet RxNorm: 863027 1 Tablet(s) PO daily No Start Date 08/29/2017 Inactive Lipitor 40 mg tablet RxNorm: 924633 1 Tablet(s) PO daily No Start Date 09/19/2017 Inactive Effexor 75 mg tablet RxNorm: 698311 1 Tablet(s) PO daily No Start Date 04/04/2015 Inactive Carafate 1 gram tablet RxNorm: 120695 1 Tablet(s) PO BID No Start Date 02/07/2015 Inactive clonazepam 0.5 mg ta blet RxNorm: 441352 1 Tablet(s) PO BID No Start Date 02/10/2015 Inactive Plavix 75 mg tablet RxNorm: 038219 1 Tablet(s) PO daily No Start Date 02/11/2015 Inactive sodium bicarbonate 6 50 mg tablet RxNorm: 757674 2 Tablet(s) PO BID No Start Date 09/01/2015 Inactive Lovenox 30 mg/0.3 mL subcutaneous syringe RxNorm: 796597 0.3 Milliliter(s) SQ Q12H No Start Date 03/15/2017 Inactive Fish Oil 1,000 mg ca psule RxNorm: 1 Capsule(s) PO daily No Start Date 01/13/2016 Inactive Detrol LA 4 mg capsu le,extended release RxNorm: 669786 1 Capsule(s) PO daily No Start Date 06/02/2015 Inactive Medication Administered Medication Codes Instruc tions Start Date Status Kenalog 40 mg/mL suspension for injection RxNorm: 8875157 Milliliter 09/02/2018 No longer Active Immunizations Vaccine Codes Date Status SHINGARIX CVX: 121 03/23 completed Assessments Condition Codes Effectiv e Dates Other acute sinusitis ICD-10: J01.80 ICD-9: 461.8 09/02/2018 Other allergic rhinitis ICD-10: J30. 89 ICD-9: 477.8 09/02/2018 Hypothyroidism, unspecified ICD-10: E03.9 ICD-9: 244.9 04/14/2018 Essential (primary) hypertension ICD -10: I10 ICD-9: 401.9 04/14/2018 detention (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 ICD-10: Z79.01 ICD-9: V58.61 04/14/2018 Impaired fasting glucose ICD-10: R73 .01 ICD-9: 790.21 04/14/2018 Gastro-esophageal reflux disease without esophagitis ICD-10: K21.9 ICD-9: 530.81 01/18/2018 Localized edema ICD-10: R60.0 ICD-9: 782.3 01/18/2018 Right lower quadrant pain ICD-10: R1 0.31 ICD-9: 789.03 09/23/2017 Incisional hernia without obstruction or gangrene ICD-10: K43.2 ICD-9: 553.21 09/23/2017 Mixed hyperlipidemia ICD-10: E78.2 ICD-9: 272.4 05/27/2017 Dysuria ICD-10: R30.0 ICD-9: 788.1 03/05/2017 Pain [...] fatigue ICD-10: R53.83 ICD-9: 780.79 08/20/2016 Other fci (current) drug therapy ICD-10: Z79.899 ICD-9: V58.69 [...] (3rd IS) 0.43 uIU/mL 09/02/2018 Comp Metabolic Ncr356 NA 136 mEq/L 09/02/2018 Comp Metabolic Cba447 K 4.1 mEq/L 09/02/2018 Comp Metabolic Ite346 CL 103 mEq/L 09/02/2018 Comp Metabolic Kbv145 CO2 20.0 mEq/L 09/02/2018 Comp Metabolic Ipc379 AN ION GAP 17 09/02/2018 Comp Metabolic Rtu755 GL UCOSE 124 mg/dL 09/02/2018 Comp Metabolic Nik657 Cr eat 1.0 mg/dL 09/02/2018 Comp Metabolic Hav966 eG FR 57 ml/min/1.73m2 09/02 Comp Metabolic Gkl611 BUN 24 mg/dL 09/02/2018 Comp Metabolic She641 B/ C Ratio 23.8 Ratio 09/02/2018 Comp Metabolic Ybf145 CA LCIUM 9.5 mg/dL 09/02/2018 Comp Metabolic Hcs618 AL K PHOS 64 U/L 09/02/2018 Comp Metabolic Hre653 T(SGOT) 24 U/L 09/02/2018 Comp Metabolic Bnn988 AL T(SGPT) 23 U/L 09/02/2018 Comp Metabolic Pti811 BI LI T 0.5 mg/dL 09/02/2018 Comp Metabolic Xtz412 AL BUMIN 4.2 g/dL 09/02/2018 Comp Metabolic Xjy962 TP RO 7.4 g/dL 09/02/2018 Comp Metabolic Frb461 GL OB 3.2 g/dL 09/02/2018 Comp Metabolic Uip672 A/ G Ratio 1.3 Ratio 09/02/2018 Comp Metabolic Ysh315 Os mo 277 mOsmo 09/02/2018 Pt Ofi9156 PT 40.6 seconds 09/02/2018 Pt Zzu3243 INR 4.2 09/02/2018 Pt Nok4211 Low Intensity - 1.5-2.0 09/02/2018 Pt Eeg6946 Mod intensity - 2.0-3.0 09/02/2018 Pt Beq7897 Hi intensity - 3.0-4.0 09/02/2018 Free T4 Tob136 FREE T4 1.51 ng/dL 09/02/2018 Magnesium Ord90 Mag 1.8 mg/dL 09/02/2018 Pt Qnp2335 PT 29.2 seconds 08/05/2018 Pt Uet8797 INR 2.8 08/05/2018 Pt Ifl3970 Low Intensity - 1.5-2.0 08/05/2018 Pt Nnk9605 Mod intensity - 2.0-3.0 08/05/2018 Pt Ucw4683 Hi intensity - 3.0-4.0 08/05/2018 Pt Eke2560 PT 30.2 seconds 07/25/2018 Pt Eyb7098 INR 2.9 07/25/2018 Pt Rym7848 Low Intensity - 1.5-2.0 07/25/2018 Pt Hdu0115 Mod intensity - 2.0-3.0 07/25/2018 Pt Liu7082 Hi intensity - 3.0-4.0 07/25/2018 Pt Gcm1763 PT 25.2 seconds 07/19/2018 Pt Tkb5986 INR 2.3 07/19/2018 Pt Dqd1828 Low Intensity - 1.5-2.0 07/19/2018 Pt Sbj8285 Mod intensity - 2.0-3.0 07/19/2018 Pt Ypq0197 Hi intensity - 3.0-4.0 07/19/2018 Pt Ugw9873 PT 17.4 seconds 07/15/2018 Pt Lif0090 INR 1.5 07/15/2018 Pt Qob3351 Low Intensity - 1.5-2.0 07/15/2018 Pt Cyj2910 Mod intensity - 2.0-3.0 07/15/2018 Pt Gbx3407 Hi intensity - 3.0-4.0 07/15/2018 Pt Zlg0537 PT 17.8 seconds 07/08/2018 Pt Moc0077 INR 1.5 07/08/2018 Pt Bve7314 Low Intensity - 1.5-2.0 07/08/2018 Pt Fmy0126 Mod intensity - 2.0-3.0 07/08/2018 Pt Teo1303 Hi intensity - 3.0-4.0 07/08/2018 Pt Ivl4334 PT 19.2 seconds 07/01/2018 Pt Awf5802 INR 1.7 07/01/2018 Pt Lhf1487 Low Intensity - 1.5-2.0 07/01/2018 Pt Qyd7408 Mod intensity - 2.0-3.0 07/01/2018 Pt Lpj6200 Hi intensity - 3.0-4.0 07/01/2018 Pt Pya2110 PT 17.4 seconds 06/23/2018 Pt Bdh0507 INR 1.5 06/23/2018 Pt Bsh3895 Low Intensity - 1.5-2.0 06/23/2018 Pt Yhz6736 Mod intensity - 2.0-3.0 06/23/2018 Pt Aki3519 Hi intensity - 3.0-4.0 06/23/2018 Pt Vzk2958 PT 18.4 seconds 06/17/2018 Pt Acr5026 INR 1.6 06/17/2018 Pt Zib9057 Low Intensity - 1.5-2.0 06/17/2018 Pt Lxc0171 Mod intensity - 2.0-3.0 06/17/2018 Pt Anl7218 Hi intensity - 3.0-4.0 06/17/2018 Sed Rate [...] 30.4 pg 06/08/2018 Cbc With Differential Ord2 Bartholomew% 9.4 % 06/08/2018 Cbc With Differential Ord2 [...] 1.20 K/ul 06/08/2018 Cbc With Differential Ord2 Bartholomew ABS# 0.5 K/ul 06/08/2018 Cbc With Differential Ord2 Eos ABS# 0.1 K/ul 06/08/2018 Cbc With Differential Ord2 Baso ABS# 0.1 K/ul 06/08/2018 C-Reactive Protein Qnt Crqnt CRP 0.1 mg/dl 06/08/2018 Pt Knl1599 PT 17.6 seconds 06/08/2018 Pt Tcg9978 INR 1.5 06/08/2018 Pt Nyw4331 Low Intensity - 1.5-2.0 06/08/2018 Pt Msq8920 Mod intensity - 2.0-3.0 06/08/2018 Pt Tau6032 Hi intensity - 3.0-4.0 06/08/2018 Pt Zjz2887 PT 16.8 seconds 05/10/2018 Pt Uvl6371 INR 1.4 05/10/2018 Pt Wua8848 Low Intensity - 1.5-2.0 05/10/2018 Pt Aso8373 Mod intensity - 2.0-3.0 05/10/2018 Pt Dxm9649 Hi intensity - 3.0-4.0 05/10/2018 Pt Rdo9363 PT 16.7 seconds 05/04/2018 Pt Ueo5560 INR 1.4 05/04/2018 Pt Jyo7197 Low Intensity - 1.5-2.0 05/04/2018 Pt Bwa9843 Mod intensity - 2.0-3.0 05/04/2018 Pt Bfp5449 Hi intensity - 3.0-4.0 05/04/2018 Free T4 Xua965 FREE T4 1.09 ng/dL 04/14/2018 Tsh Ord6 TSH (3rd IS) 2.36 uIU/mL 04/14/2018 Pt Zlj5591 PT 20.3 seconds 04/14/2018 Pt Mul5223 INR 1.8 04/14/2018 Pt Mup5624 Low Intensity - 1.5-2.0 04/14/2018 Pt Ung5644 Mod intensity - 2.0-3.0 04/14/2018 Pt Fnv7949 Hi intensity - 3.0-4.0 04/14/2018 Lipid Ord30 CHOL 149 mg/dL 04/14/2018 Lipid Ord30 HDL 49.0 mg/dl 04/14/2018 Lipid Ord30 TRIG 161 mg/dL 04/14/2018 Lipid Ord30 LDL 68 mg/dL 04/14/2018 Lipid Ord30 C/HDL 3.0 Ratio 04/14/2018 %Hba1C Lua508 % HbA1c 12384-5 5.9 % 04/14/2018 %Hba1C Bwq433 Gluc Ave 123 mg/dL 04/14/2018 Comp Metabolic Ykd515 NA 140 mEq/L 04/14/2018 Comp Metabolic Bmr869 K 4.1 mEq/L 04/14/2018 Comp Metabolic Ddk476 CL 105 mEq/L 04/14/2018 Comp Metabolic Xhp964 CO2 28.0 mEq/L 04/14/2018 Comp Metabolic Vdl354 AN ION GAP 11 04/14/2018 Comp Metabolic Tka031 GL UCOSE 112 mg/dL 04/14/2018 Comp Metabolic Gfa103 Cr eat 1.0 mg/dL 04/14/2018 Comp Metabolic Rsc312 eG FR 58 ml/min/1.73m2 04/14 Comp Metabolic Jwr755 BUN 20 mg/dL 04/14/2018 Comp Metabolic Xmi834 B/ C Ratio 20.2 Ratio 04/14/2018 Comp Metabolic Wnu460 CA LCIUM 10.0 mg/dL 04/14/2018 Comp Metabolic Szy099 AL K PHOS 51 U/L 04/14/2018 Comp Metabolic Jcz145 T(SGOT) 24 U/L 04/14/2018 Comp Metabolic Why499 AL T(SGPT) 21 U/L 04/14/2018 Comp Metabolic Yim998 BI LI T 0.8 mg/dL 04/14/2018 Comp Metabolic Sqc648 AL BUMIN 4.2 g/dL 04/14/2018 Comp Metabolic Osz323 TP RO 7.1 g/dL 04/14/2018 Comp Metabolic Pyi062 GL OB 2.9 g/dL 04/14/2018 Comp Metabolic Qbw885 A/ G Ratio 1.5 Ratio 04/14/2018 Comp Metabolic Dag468 Os mo 283 mOsmo 04/14/2018 Cbc With [...] 30.7 pg 04/14/2018 Cbc With Differential Ord2 Bartholomew% 10.6 % 04/14/2018 Cbc With Differential Ord2 [...] 1.18 K/ul 04/14/2018 Cbc With Differential Ord2 Bartholomew ABS# 0.5 K/ul 04/14/2018 Cbc With Differential Ord2 Eos ABS# 0.2 K/ul 04/14/2018 Cbc With Differential Ord2 Baso ABS# 0.1 K/ul 04/14/2018 Pt Czp0084 PT 29.3 seconds 02/11/2018 Pt Bvn7819 INR 2.8 02/11/2018 Pt Bas4926 Low Intensity - 1.5-2.0 02/11/2018 Pt Flk2623 Mod intensity - 2.0-3.0 02/11/2018 Pt Izo9736 Hi intensity - 3.0-4.0 02/11/2018 Comp Metabolic Zde225 NA 141 mEq/L 01/05/2018 Comp Metabolic Uor555 K 3.7 mEq/L 01/05/2018 Comp Metabolic Yub544 CL 102 mEq/L 01/05/2018 Comp Metabolic Vqr648 CO2 29.0 mEq/L 01/05/2018 Comp Metabolic Jqy026 AN ION GAP 14 01/05/2018 Comp Metabolic Klx218 GL UCOSE 136 mg/dL 01/05/2018 Comp Metabolic Sqn660 Cr eat 1.0 mg/dL 01/05/2018 Comp Metabolic Kde337 eG FR 61 ml/min/1.73m2 01/05 Comp Metabolic Ont015 BUN 22 mg/dL 01/05/2018 Comp Metabolic Lhr069 B/ C Ratio 22.9 Ratio 01/05/2018 Comp Metabolic Hvj409 CA LCIUM 9.7 mg/dL 01/05/2018 Comp Metabolic Qvr947 AL K PHOS 57 U/L 01/05/2018 Comp Metabolic Qzt286 T(SGOT) 21 U/L 01/05/2018 Comp Metabolic Nzz392 AL T(SGPT) 19 U/L 01/05/2018 Comp Metabolic Scu841 BI LI T 0.9 mg/dL 01/05/2018 Comp Metabolic Mty053 AL BUMIN 4.1 g/dL 01/05/2018 Comp Metabolic Sep249 TP RO 7.1 g/dL 01/05/2018 Comp Metabolic Tmd893 GL OB 3.0 g/dL 01/05/2018 Comp Metabolic Xhe275 A/ G Ratio 1.4 Ratio 01/05/2018 Comp Metabolic Nzz914 Os mo 287 mOsmo 01/05/2018 Free T4 Gju577 FREE T4 1.05 ng/dL 01/05/2018 %Hba1C Dsf889 % HbA1c 92698-8 6.0 % 01/05/2018 %Hba1C Str132 Gluc Ave 126 mg/dL 01/05/2018 Cbc With [...] 30.6 pg 01/05/2018 Cbc With Differential Ord2 Bartholomew% 10.5 % 01/05/2018 Cbc With Differential Ord2 [...] 1.27 K/ul 01/05/2018 Cbc With Differential Ord2 Bartholomew ABS# 0.5 K/ul 01/05/2018 Cbc With Differential Ord2 Eos ABS# 0.2 K/ul 01/05/2018 Cbc With Differential Ord2 Baso ABS# 0.1 K/ul 01/05/2018 Pt Ltw7538 PT 20.7 seconds 01/05/2018 Pt Wid3771 INR 1.8 01/05/2018 Pt Rej1204 Low Intensity - 1.5-2.0 01/05/2018 Pt Glm8029 Mod intensity - 2.0-3.0 01/05/2018 Pt Nlh5312 Hi intensity - 3.0-4.0 01/05/2018 Tsh Ord6 TSH (3rd IS) 2.34 uIU/mL 01/05/2018 Lipid Ord30 CHOL 156 mg/dL 01/05/2018 Lipid Ord30 HDL 48.0 mg/dl 01/05/2018 Lipid Ord30 TRIG 207 mg/dL 01/05/2018 Lipid Ord30 LDL 67 mg/dL 01/05/2018 Lipid Ord30 C/HDL 3.3 Ratio 01/05/2018 Pt Xdt4201 PT 28.3 seconds 11/26/2017 Pt Gwr9535 INR 2.6 11/26/2017 Pt Xmp0697 Low Intensity - 1.5-2.0 11/26/2017 Pt Jme6073 Mod intensity - 2.0-3.0 11/26/2017 Pt Yzc3576 Hi intensity - 3.0-4.0 11/26/2017 Pt Rkc0249 PT 36.5 seconds 11/19/2017 Pt Kyq0583 INR 3.6 11/19/2017 Pt Jiu2038 Low Intensity - 1.5-2.0 11/19/2017 Pt Fkv2452 Mod intensity - 2.0-3.0 11/19/2017 Pt Buy1847 Hi intensity - 3.0-4.0 11/19/2017 Pt Eje4015 PT 22.9 seconds 10/15/2017 Pt Bbm5978 INR 2.0 10/15/2017 Pt Tfe3229 Low Intensity - 1.5-2.0 10/15/2017 Pt Emo9169 Mod intensity - 2.0-3.0 10/15/2017 Pt Puh0725 Hi intensity - 3.0-4.0 10/15/2017 Pt Eqt1267 PT 25.9 seconds 10/01/2017 Pt Djc9982 INR 2.4 10/01/2017 Pt Ipo4553 Low Intensity - 1.5-2.0 10/01/2017 Pt Iqe7656 Mod intensity - 2.0-3.0 10/01/2017 Pt Ywh9697 Hi intensity - 3.0-4.0 10/01/2017 Pt Uar5727 PT 20.6 seconds 09/24/2017 Pt Kqr9364 INR 1.8 09/24/2017 Pt Clp8519 Low Intensity - 1.5-2.0 09/24/2017 Pt Mki5272 Mod intensity - 2.0-3.0 09/24/2017 Pt Dmi0854 Hi intensity - 3.0-4.0 09/24/2017 Pt Bsb9179 PT 21.0 seconds 09/15/2017 Pt Zlr7971 INR 1.8 09/15/2017 Pt Pcd2203 Low Intensity - 1.5-2.0 09/15/2017 Pt Yzz9548 Mod intensity - 2.0-3.0 09/15/2017 Pt Agy7310 Hi intensity - 3.0-4.0 09/15/2017 Pt Xhr0373 PT 19.0 seconds 09/03/2017 Pt Fyy0186 INR 1.6 09/03/2017 Pt Hli7883 Low Intensity - 1.5-2.0 09/03/2017 Pt Xqk3555 Mod intensity - 2.0-3.0 09/03/2017 Pt Ngo0395 Hi intensity - 3.0-4.0 09/03/2017 Pt Emu7080 PT 17.6 seconds 08/23/2017 Pt Njc8443 INR 1.5 08/23/2017 Pt Wgz0677 Low Intensity - 1.5-2.0 08/23/2017 Pt Kan9963 Mod intensity - 2.0-3.0 08/23/2017 Pt Drd3319 Hi intensity - 3.0-4.0 08/23/2017 Pt Lfl0207 PT 12.7 seconds 08/20/2017 Pt Ktd0368 INR 1.0 08/20/2017 Pt Fpf9657 Low Intensity - 1.5-2.0 08/20/2017 Pt Shq2948 Mod intensity - 2.0-3.0 08/20/2017 Pt Gct6185 Hi intensity - 3.0-4.0 08/20/2017 Pt Uro6387 PT 12.9 seconds 08/17/2017 Pt Nyo9755 INR 1.0 08/17/2017 Pt Cqz1351 Low Intensity - 1.5-2.0 08/17/2017 Pt Qor2564 Mod intensity - 2.0-3.0 08/17/2017 Pt Erl8959 Hi intensity - 3.0-4.0 08/17/2017 Pt Kgp7574 PT 18.5 seconds 08/10/2017 Pt Ueo3449 INR 1.6 08/10/2017 Pt Phl5039 Low Intensity - 1.5-2.0 08/10/2017 Pt Xvu0694 Mod intensity - 2.0-3.0 08/10/2017 Pt Jdr3153 Hi intensity - 3.0-4.0 08/10/2017 Tsh Ord6 [...] 29.3 pg 05/27/2017 Cbc With Differential Ord2 Bartholomew% 8.1 % 05/27/2017 Cbc With Differential Ord2 [...] 1.11 K/ul 05/27/2017 Cbc With Differential Ord2 Bartholomew ABS# 0.6 K/ul 05/27/2017 Cbc With Differential Ord2 Eos ABS# 0.2 K/ul 05/27/2017 Cbc With Differential Ord2 Baso ABS# 0.1 K/ul 05/27/2017 Pt Kci5479 PT 28.2 seconds 05/27/2017 Pt Jpx1314 INR 2.6 05/27/2017 Pt Dhu2865 Low Intensity - 1.5-2.0 05/27/2017 Pt Pbd1943 Mod intensity - 2.0-3.0 05/27/2017 Pt Dli5518 Hi intensity - 3.0-4.0 05/27/2017 Lipid Ord30 CHOL 167 mg/dL 05/27/2017 Lipid Ord30 HDL 49.0 mg/dl 05/27/2017 Lipid Ord30 TRIG 347 mg/dL 05/27/2017 Lipid Ord30 LDL 49 mg/dL 05/27/2017 Lipid Ord30 C/HDL 3.4 Ratio 05/27/2017 Magnesium Ord90 Mag 1.4 mg/dL 05/27/2017 %Hba1C Oxz288 % HbA1c 55830-4 5.9 % 05/27/2017 %Hba1C Vcx907 Gluc Ave 123 mg/dL 05/27/2017 Comp Metabolic Giz072 NA 138 mEq/L 05/27/2017 Comp Metabolic Luf125 K 4.1 mEq/L 05/27/2017 Comp Metabolic Mnw884 CL 101 mEq/L 05/27/2017 Comp Metabolic Ulb905 CO2 31.0 mEq/L 05/27/2017 Comp Metabolic Cro450 AN ION GAP 10 05/27/2017 Comp Metabolic Isc708 GL UCOSE 117 mg/dL 05/27/2017 Comp Metabolic Fos967 Cr eat 0.9 mg/dL 05/27/2017 Comp Metabolic Pgb962 eG FR 62 ml/min/1.73m2 05/27 Comp Metabolic Efk092 BUN 25 mg/dL 05/27/2017 Comp Metabolic Waf377 B/ C Ratio 26.6 Ratio 05/27/2017 Comp Metabolic Lfe992 CA LCIUM 9.5 mg/dL 05/27/2017 Comp Metabolic Pdp322 AL K PHOS 73 U/L 05/27/2017 Comp Metabolic Jem158 T(SGOT) 18 U/L 05/27/2017 Comp Metabolic Elo105 AL T(SGPT) 12 U/L 05/27/2017 Comp Metabolic Ovl250 BI LI T 0.5 mg/dL 05/27/2017 Comp Metabolic Kkw338 AL BUMIN 4.1 g/dL 05/27/2017 Comp Metabolic Yrv123 TP RO 7.1 g/dL 05/27/2017 Comp Metabolic Wtc350 GL OB 3.0 g/dL 05/27/2017 Comp Metabolic Zbo133 A/ G Ratio 1.3 Ratio 05/27/2017 Comp Metabolic Lca759 Os mo 281 mOsmo 05/27/2017 Free T4 Dua817 FREE T4 0.91 ng/dL 05/27/2017 Pt Mgf5767 PT 29.2 seconds 04/16/2017 Pt Nbd6143 INR 2.7 04/16/2017 Pt Joj7765 Low Intensity - 1.5-2.0 04/16/2017 Pt Ylu3800 Mod intensity - 2.0-3.0 04/16/2017 Pt Oos6156 Hi intensity - 3.0-4.0 04/16/2017 Pt Rjp6077 PT 30.7 seconds 03/31/2017 Pt Yos7697 INR 2.9 03/31/2017 Pt Fgh2191 Low Intensity - 1.5-2.0 03/31/2017 Pt Lov8850 Mod intensity - 2.0-3.0 03/31/2017 Pt Ezo8730 Hi intensity - 3.0-4.0 03/31/2017 Pt Rxj9139 PT 21.3 seconds 03/26/2017 Pt Kxq2946 INR 1.9 03/26/2017 Pt Smx8051 Low Intensity - 1.5-2.0 03/26/2017 Pt Jmw3513 Mod intensity - 2.0-3.0 03/26/2017 Pt Lzp7825 Hi intensity - 3.0-4.0 03/26/2017 Pt Dau9972 PT 19.8 seconds 03/22/2017 Pt Hsu5324 INR 1.7 03/22/2017 Pt Dse2884 Low Intensity - 1.5-2.0 03/22/2017 Pt Mxg5481 Mod intensity - 2.0-3.0 03/22/2017 Pt Hsq4657 Hi intensity - 3.0-4.0 03/22/2017 Pt Gwt2742 PT 15.6 seconds 03/19/2017 Pt Teu5491 INR 1.3 03/19/2017 Pt Iyy6856 Low Intensity - 1.5-2.0 03/19/2017 Pt Kxb5581 Mod intensity - 2.0-3.0 03/19/2017 Pt Epc8823 Hi intensity - 3.0-4.0 03/19/2017 Pt Ujb1404 PT 13.7 seconds 03/15/2017 Pt Muj8318 INR 1.1 03/15/2017 Pt Gnl3904 Low Intensity - 1.5-2.0 03/15/2017 Pt Ghh2013 Mod intensity - 2.0-3.0 03/15/2017 Pt Gew2022 Hi intensity - 3.0-4.0 03/15/2017 Pt Ryi4664 PT 25.8 seconds 01/28/2017 Pt Svs0439 INR 2.4 01/28/2017 Pt Rrk7463 Low Intensity - 1.5-2.0 01/28/2017 Pt Rby6273 Mod intensity - 2.0-3.0 01/28/2017 Pt Qkk8589 Hi intensity - 3.0-4.0 01/28/2017 %Hba1C Myx311 % HbA1c 00714-3 6.4 % 10/23/2016 %Hba1C Ioe753 Gluc Ave 137 mg/dL 10/23/2016 Comp Metabolic Boj917 NA 138 mEq/L 10/23/2016 Comp Metabolic Bep525 K 3.4 mEq/L 10/23/2016 Comp Metabolic Qcb682 CL 100 mEq/L 10/23/2016 Comp Metabolic Tpd884 CO2 30.0 mEq/L 10/23/2016 Comp Metabolic Smz899 AN ION GAP 11 10/23/2016 Comp Metabolic Pwg697 GL UCOSE 139 mg/dL 10/23/2016 Comp Metabolic Tut816 Cr eat 0.9 mg/dL 10/23/2016 Comp Metabolic Par848 eG FR 62 ml/min/1.73m2 10/23 Comp Metabolic Vxc580 BUN 22 mg/dL 10/23/2016 Comp Metabolic Ulk837 B/ C Ratio 23.4 Ratio 10/23/2016 Comp Metabolic Cft335 CA LCIUM 8.7 mg/dL 10/23/2016 Comp Metabolic Sjq013 AL K PHOS 66 U/L 10/23/2016 Comp Metabolic Zyf388 T(SGOT) 20 U/L 10/23/2016 Comp Metabolic Hfp120 AL T(SGPT) 10 U/L 10/23/2016 Comp Metabolic Yue730 BI LI T 0.5 mg/dL 10/23/2016 Comp Metabolic Ltp547 AL BUMIN 3.5 g/dL 10/23/2016 Comp Metabolic Drm812 TP RO 6.3 g/dL 10/23/2016 Comp Metabolic Paa462 GL OB 2.8 g/dL 10/23/2016 Comp Metabolic Xgt787 A/ G Ratio 1.3 Ratio 10/23/2016 Comp Metabolic Cfy333 Os mo 281 mOsmo 10/23/2016 Pt Squ7710 PT 26.8 seconds 10/23/2016 Pt Abq6738 INR 2.7 10/23/2016 Pt Ips0201 Low Intensity - 1.5-2.0 10/23/2016 Pt Hbl6690 Mod intensity - 2.0-3.0 10/23/2016 Pt Dxu2191 Hi intensity - 3.0-4.0 10/23/2016 Pt Twp2610 PT 28.3 seconds 09/25/2016 Pt Uvy7495 INR 2.8 09/25/2016 Pt Jso1960 Low Intensity - 1.5-2.0 09/25/2016 Pt Oge3103 Mod intensity - 2.0-3.0 09/25/2016 Pt Lju8434 Hi intensity - 3.0-4.0 09/25/2016 Metabolic Ord15 [...] Metabolic Ord15 CALCIUM 8.8 mg/dL 09/25/2016 Pt Rih0574 PT 30.6 seconds 09/11/2016 Pt Izz7454 INR 3.2 09/11/2016 Pt Efo6869 Low Intensity - 1.5-2.0 09/11/2016 Pt Ajp2081 Mod intensity - 2.0-3.0 09/11/2016 Pt Tbj3348 Hi intensity - 3.0-4.0 09/11/2016 Comp Metabolic Gls520 NA 138 mEq/L 09/11/2016 Comp Metabolic Tfd831 K 4.4 mEq/L 09/11/2016 Comp Metabolic Vlw498 CL 103 mEq/L 09/11/2016 Comp Metabolic Eez016 CO2 31.0 mEq/L 09/11/2016 Comp Metabolic Bjp399 AN ION GAP 8 09/11/2016 Comp Metabolic Ioz823 GL UCOSE 146 mg/dL 09/11/2016 Comp Metabolic Vly175 Cr eat 1.0 mg/dL 09/11/2016 Comp Metabolic Cpu665 eG FR 60 ml/min/1.73m2 09/11 Comp Metabolic Ali572 BUN 16 mg/dL 09/11/2016 Comp Metabolic Xda151 B/ C Ratio 16.5 Ratio 09/11/2016 Comp Metabolic Azt421 CA LCIUM 8.7 mg/dL 09/11/2016 Comp Metabolic Kji933 AL K PHOS 52 U/L 09/11/2016 Comp Metabolic Hwj981 T(SGOT) 19 U/L 09/11/2016 Comp Metabolic Axu897 AL T(SGPT) 11 U/L 09/11/2016 Comp Metabolic Scu445 BI LI T 0.7 mg/dL 09/11/2016 Comp Metabolic Gkp919 AL BUMIN 3.3 g/dL 09/11/2016 Comp Metabolic Xab413 TP RO 5.8 g/dL 09/11/2016 Comp Metabolic Iqm489 GL OB 2.5 g/dL 09/11/2016 Comp Metabolic Idc874 A/ G Ratio 1.3 Ratio 09/11/2016 Comp Metabolic Mzs137 Os mo 280 mOsmo 09/11/2016 C-Reactive Protein Qnt Crqnt CRP 0.1 mg/dl 08/21/2016 Comp Metabolic Hfc721 NA 139 mEq/L 08/21/2016 Comp Metabolic Vjp745 K 4.1 mEq/L 08/21/2016 Comp Metabolic Awj654 CL 102 mEq/L 08/21/2016 Comp Metabolic Qvn472 CO2 30.0 mEq/L 08/21/2016 Comp Metabolic Gue455 AN ION GAP 11 08/21/2016 Comp Metabolic Dtl703 GL UCOSE 148 mg/dL 08/21/2016 Comp Metabolic Jgk993 Cr eat 1.0 mg/dL 08/21/2016 Comp Metabolic Hmu874 eG FR 55 ml/min/1.73m2 08/21 Comp Metabolic Tsb990 BUN 21 mg/dL 08/21/2016 Comp Metabolic Qmm122 B/ C Ratio 20.2 Ratio 08/21/2016 Comp Metabolic Aez183 CA LCIUM 9.4 mg/dL 08/21/2016 Comp Metabolic Kbf183 AL K PHOS 63 U/L 08/21/2016 Comp Metabolic Zhk638 T(SGOT) 23 U/L 08/21/2016 Comp Metabolic Wwb944 AL T(SGPT) 16 U/L 08/21/2016 Comp Metabolic Emt728 BI LI T 0.6 mg/dL 08/21/2016 Comp Metabolic Oma133 AL BUMIN 3.9 g/dL 08/21/2016 Comp Metabolic Frx737 TP RO 6.8 g/dL 08/21/2016 Comp Metabolic Rbi478 GL OB 2.9 g/dL 08/21/2016 Comp Metabolic Lgk640 A/ G Ratio 1.4 Ratio 08/21/2016 Comp Metabolic Wty391 Os mo 283 mOsmo 08/21/2016 Sed Rate Ord21 ESR 16 mm/hr 08/21/2016 Pt Kum9866 PT 27.2 seconds 08/21/2016 Pt Uid3887 INR 2.7 08/21/2016 Pt Umo6483 Low Intensity - 1.5-2.0 08/21/2016 Pt Hiz0416 Mod intensity - 2.0-3.0 08/21/2016 Pt Aqh9214 Hi intensity - 3.0-4.0 08/21/2016 Magnesium Ord90 Mag 1.9 mg/dL 08/21/2016 Pt Fyd0763 PT 25.9 seconds 06/17/2016 Pt Fto7278 INR 2.5 06/17/2016 Pt Vrj9622 Low Intensity - 1.5-2.0 06/17/2016 Pt Hjo5473 Mod intensity - 2.0-3.0 06/17/2016 Pt Rry3276 Hi intensity - 3.0-4.0 06/17/2016 Tsh Ord6 hTSH II 2.13 uIU/mL 06/08/2016 Free T4 Owm869 FREE T4 0.79 ng/dL 06/08/2016 Cbc With [...] 26.8 pg 06/08/2016 Cbc With Differential Ord2 Bartholomew% 12.0 % 06/08/2016 Cbc With Differential Ord2 [...] 1.40 K/ul 06/08/2016 Cbc With Differential Ord2 Bartholomew ABS# 0.7 K/ul 06/08/2016 Cbc With Differential Ord2 Eos ABS# 0.3 K/ul 06/08/2016 Cbc With Differential Ord2 Baso ABS# 0.1 K/ul 06/08/2016 %Hba1C Cfc082 % HbA1c 24303-2 6.2 % 06/08/2016 %Hba1C Fvp698 Gluc Ave 131 mg/dL 06/08/2016 Comp Metabolic Yzd290 NA 138 mEq/L 06/08/2016 Comp Metabolic Qwu170 K 3.9 mEq/L 06/08/2016 Comp Metabolic Wwx513 CL 105 mEq/L 06/08/2016 Comp Metabolic Qkg165 CO2 27.0 mEq/L 06/08/2016 Comp Metabolic Rwm912 AN ION GAP 10 06/08/2016 Comp Metabolic Fzh532 GL UCOSE 127 mg/dL 06/08/2016 Comp Metabolic Wgr042 Cr eat 1.0 mg/dL 06/08/2016 Comp Metabolic Ufu382 eG FR 59 ml/min/1.73m2 06/08 Comp Metabolic Cwh193 BUN 19 mg/dL 06/08/2016 Comp Metabolic Rrw185 B/ C Ratio 19.4 Ratio 06/08/2016 Comp Metabolic Ycj166 CA LCIUM 9.2 mg/dL 06/08/2016 Comp Metabolic Dqb036 AL K PHOS 77 U/L 06/08/2016 Comp Metabolic Rlb699 T(SGOT) 19 U/L 06/08/2016 Comp Metabolic Pxa251 AL T(SGPT) 13 U/L 06/08/2016 Comp Metabolic Iow193 BI LI T 0.5 mg/dL 06/08/2016 Comp Metabolic Dmd326 AL BUMIN 3.8 g/dL 06/08/2016 Comp Metabolic Cdi110 TP RO 6.6 g/dL 06/08/2016 Comp Metabolic Ysi270 GL OB 2.8 g/dL 06/08/2016 Comp Metabolic Sct060 A/ G Ratio 1.4 Ratio 06/08/2016 Comp Metabolic Efx550 Os mo 280 mOsmo 06/08/2016 Pt Gyf0034 PT 36.1 seconds 06/08/2016 Pt Wsr6256 INR 3.9 06/08/2016 Pt Hhm5012 Low Intensity - 1.5-2.0 06/08/2016 Pt Vea7883 Mod intensity - 2.0-3.0 06/08/2016 Pt Hsj6899 Hi intensity - 3.0-4.0 06/08/2016 Lipid Ord30 CHOL 149 mg/dL 06/08/2016 Lipid Ord30 HDL 46.0 mg/dl 06/08/2016 Lipid Ord30 TRIG 279 mg/dL 06/08/2016 Lipid Ord30 LDL 47 mg/dL 06/08/2016 Lipid Ord30 C/HDL 3.2 Ratio 06/08/2016 Pt Fdp0597 PT 30.9 seconds 02/12/2016 Pt Djg3341 INR 3.2 02/12/2016 Pt Idm2858 Low Intensity - 1.5-2.0 02/12/2016 Pt Bou5977 Mod intensity - 2.0-3.0 02/12/2016 Pt Iga6338 Hi intensity - 3.0-4.0 02/12/2016 Free T4 Zav329 FREE T4 1.24 ng/dL 09/27/2015 %Hba1C Ghk082 % HbA1c 61396-9 6.4 % 09/27/2015 %Hba1C Sqn228 Gluc Ave 137 mg/dL 09/27/2015 Tsh Ord6 hTSH II 0.37 uIU/mL 09/27/2015 Pt Mzz9679 PT 26.2 seconds 09/27/2015 Pt Aue6764 INR 2.5 09/27/2015 Pt Whf7206 Low Intensity - 1.5-2.0 09/27/2015 Pt Nio5881 Mod intensity - 2.0-3.0 09/27/2015 Pt Sml7142 Hi intensity - 3.0-4.0 09/27/2015 Pt Hcf9602 PT 27.6 seconds 2015 Pt Ldf8992 INR 2.7 2015 Pt Xvc3927 Low Intensity - 1.5-2.0 2015 Pt Mml4751 Mod intensity - 2.0-3.0 2015 Pt Fgx5449 Hi intensity - 3.0-4.0 2015 %Hba1C Kol542 % HbA1c 49857-4 6.1 % 06/11/2015 %Hba1C Ehu620 Gluc Ave 128 mg/dL 06/11/2015 Cbc With [...] Ord2 RDW 15.8 % 06/10/2015 Comp Metabolic Dsu777 NA 139 mEq/L 06/10/2015 Comp Metabolic Lqg064 K 4.1 mEq/L 06/10/2015 Comp Metabolic Msj562 CL 105 mEq/L 06/10/2015 Comp Metabolic Xed669 CO2 27.0 mEq/L 06/10/2015 Comp Metabolic Bch165 AN ION GAP 11 06/10/2015 Comp Metabolic Ins323 GL UCOSE 127 mg/dL 06/10/2015 Comp Metabolic Gtq057 Cr eat 1.0 mg/dL 06/10/2015 Comp Metabolic Wge970 eG FR 59 ml/min/1.73m2 06/10 Comp Metabolic Qfu972 BUN 21 mg/dL 06/10/2015 Comp Metabolic Nnc017 B/ C Ratio 21.2 Ratio 06/10/2015 Comp Metabolic Xhs663 CA LCIUM 9.2 mg/dL 06/10/2015 Comp Metabolic Dtu992 AL K PHOS 87 U/L 06/10/2015 Comp Metabolic Oyo379 T(SGOT) 20 U/L 06/10/2015 Comp Metabolic Oiy905 AL T(SGPT) 17 U/L 06/10/2015 Comp Metabolic Gyh979 BI LI T 0.4 mg/dL 06/10/2015 Comp Metabolic Yve138 AL BUMIN 4.1 g/dL 06/10/2015 Comp Metabolic Qvw610 TP RO 7.2 g/dL 06/10/2015 Comp Metabolic Tpt774 GL OB 3.1 g/dL 06/10/2015 Comp Metabolic Iyi737 A/ G Ratio 1.3 Ratio 06/10/2015 Comp Metabolic Isy328 Os mo 282 mOsmo 06/10/2015 Tsh Ord6 hTSH II 0.86 uIU/mL 06/10/2015 Lipid Ord30 CHOL 161 mg/dL 06/10/2015 Lipid Ord30 HDL 49.0 mg/dl 06/10/2015 Lipid Ord30 TRIG 208 mg/dL 06/10/2015 Lipid Ord30 LDL 70 mg/dL 06/10/2015 Lipid Ord30 C/HDL 3.3 Ratio 06/10/2015 Pt Jjg6085 PT 25.0 seconds 04/09/2015 Pt Ijd6508 INR 2.4 04/09/2015 Pt Lsc8098 Low Intensity - 1.5-2.0 04/09/2015 Pt Kvn0028 Mod intensity - 2.0-3.0 04/09/2015 Pt Ojn1355 Hi intensity - 3.0-4.0 04/09/2015 Free T4 Ohf198 FREE T4 1.05 ng/dL 01/22/2015 Pt Ars6816 PT 27.2 seconds 01/22/2015 Pt Xce6948 INR 2.6 01/22/2015 Pt Gpv3897 Low Intensity - 1.5-2.0 01/22/2015 Pt Ril4984 Mod intensity - 2.0-3.0 01/22/2015 Pt Wop6858 Hi intensity - 3.0-4.0 01/22/2015 Cbc With [...] Differential Ord2 RDW 15.2 % 01/22/2015 B12 Mjs941 B12 402.00 pg/ml 01/22/2015 Tsh Ord6 hTSH II 0.65 uIU/mL 01/22/2015 Lipid Ord30 CHOL 166 mg/dL 01/22/2015 Lipid Ord30 HDL 48.0 mg/dl 01/22/2015 Lipid Ord30 TRIG 264 mg/dL 01/22/2015 Lipid Ord30 LDL 65 mg/dL 01/22/2015 Lipid Ord30 C/HDL 3.5 Ratio 01/22/2015 Comp Metabolic Zxp159 NA 138 mEq/L 01/22/2015 Comp Metabolic Oug323 K 4.1 mEq/L 01/22/2015 Comp Metabolic Pxg211 CL 104 mEq/L 01/22/2015 Comp Metabolic Wjz170 CO2 29.0 mEq/L 01/22/2015 Comp Metabolic Hlx052 AN ION GAP 9 01/22/2015 Comp Metabolic Jhy620 GL UCOSE 106 mg/dL 01/22/2015 Comp Metabolic Oty873 Cr eat 0.9 mg/dL 01/22/2015 Comp Metabolic Zjo664 eG FR 63 ml/min/1.73m2 01/22 Comp Metabolic Ykx069 BUN 21 mg/dL 01/22/2015 Comp Metabolic Xri439 B/ C Ratio 22.3 Ratio 01/22/2015 Comp Metabolic Ofg450 CA LCIUM 9.4 mg/dL 01/22/2015 Comp Metabolic Rzt287 AL K PHOS 83 U/L 01/22/2015 Comp Metabolic Xiv405 T(SGOT) 23 U/L 01/22/2015 Comp Metabolic Lml151 AL T(SGPT) 18 U/L 01/22/2015 Comp Metabolic Tjr278 BI LI T 0.8 mg/dL 01/22/2015 Comp Metabolic Mmv208 AL BUMIN 4.2 g/dL 01/22/2015 Comp Metabolic Uoe987 TP RO 7.3 g/dL 01/22/2015 Comp Metabolic Dka456 GL OB 3.1 g/dL 01/22/2015 Comp Metabolic Mju395 A/ G Ratio 1.4 Ratio 01/22/2015 Comp Metabolic Sim057 Os mo 279 mOsmo 01/22/2015 Review of [...] Procedure Codes Date THER/PROPH/DIAG INJ SC/IM CPT-4: 80775 09/02/2018 TRIAMCINOLONE ACET I [place] NOS CPT-4: J3301 09/02/2018 URINALYSIS NONAUTO W /O SCOPE CPT-4: 02639 03/05/2017 Vital Signs Date Vital 09/02/2018 Blood Pressure 1: 128/72 Code: 8480-6 BMI: 38.2 Code: 47524-4 Heart Rate 1: 80 bpm Height: 5'1" SpO2: 98% Weight: 202 lbs 04/14/2018 Blood Pressure 1: 116/78 Code: 8480-6 BMI: 41.6 Code: 01883-0 Heart Rate 1: 72 bpm Height: 5'1" SpO2: 98% Weight: 220 lbs 01/18/2018 Blood Pressure 1: 132/74 Code: 8480-6 BMI: 43.5 Code: 11267-7 Heart Rate 1: 70 bpm Height: 5'1" SpO2: 97% Weight: 230 lbs 01/04/2018 Blood Pressure 1: 134/76 Code: 8480-6 BMI: 42.7 Code: 06006-2 Heart Rate 1: 83 bpm Height: 5'1" SpO2: 98% Weight: 226 lbs 09/23/2017 Blood Pressure 1: 124/76 Code: 8480-6 BMI: 42.3 Code: 49105-0 Heart Rate 1: 94 bpm Height: 5'1" SpO2: 96% Weight: 224 lbs 05/27/2017 Blood Pressure 1: 146/78 Code: 8480-6 BMI: 41.4 Code: 36055-0 Heart Rate 1: 85 bpm Height: 5'1" SpO2: 98% Weight: 219 lbs 02/24/2017 Blood Pressure 1: 138/66 Code: 8480-6 BMI: 41.4 Code: 96309-5 Heart Rate 1: 78 bpm Height: 5'1" SpO2: 97% Weight: 219 lbs 11/02/2016 Blood Pressure 1: 144/72 Code: 8480-6 BMI: 46.1 Code: 95126-4 Heart Rate 1: 78 bpm Height: 5'1" SpO2: 98% Weight: 244 lbs 09/30/2016 Blood Pressure 1: 130/76 Code: 8480-6 BMI: 45.0 Code: 43880-3 Heart Rate 1: 86 bpm Height: 5'1" SpO2: 98% Weight: 238 lbs 09/10/2016 Blood Pressure 1: 136/68 Code: 8480-6 BMI: 46.3 Code: 64516-7 Heart Rate 1: 83 bpm Height: 5'1" SpO2: 98% Weight: 245 lbs 08/20/2016 Blood Pressure 1: 142/78 Code: 8480-6 BMI: 45.3 Code: 73473-5 Heart Rate 1: 84 bpm Height: 5'1" SpO2: 99% Weight: 240 lbs 06/08/2016 Blood Pressure 1: 134/76 Code: 8480-6 BMI: 44.2 Code: 64913-9 Heart Rate 1: 86 bpm Height: 5'1" SpO2: 96% Weight: 234 lbs 04/02/2016 Blood Pressure 1: 142/70 Code: 8480-6 BMI: 44.6 Code: 54441-1 Heart Rate 1: 78 bpm Height: 5'1" SpO2: 97% Weight: 236 lbs 01/14/2016 Blood Pressure 1: 146/72 Code: 8480-6 BMI: 44.2 Code: 61372-2 Heart Rate 1: 86 bpm Height: 5'1" SpO2: 96% Weight: 234 lbs 10/02/2015 Blood Pressure 1: 158/76 Code: 8480-6 BMI: 44.2 Code: 36796-6 Heart Rate 1: 67 bpm Height: 5'1" SpO2: 97% Weight: 234 lbs 07/15/2015 Blood Pressure 1: 200/90 Code: 8480-6 Blood Pressure 1: 148/78 Code: 8480-6 BMI: 44.0 Code: 23580-0 Heart Rate 1: 89 bpm Height: 5'1" SpO2: 97% Weight: 233 lbs 06/10/2015 Blood Pressure 1: 140/82 Code: 8480-6 BMI: 44.0 Code: 39777-2 Heart Rate 1: 78 bpm Height: 5'1" [...] wearing crocs and there was a new taiwanese on the floor: her foot didn't move [...] Encounters Encounter Performer Loca tion Codes Date [id number] EST. PATIENT, LEVEL IV Diagnosis: Other acute sinusitis[ICD10: J01.80] Diagnosis: Other allergic rhinitis[ICD10: J30.89] Nata Almanza MD, [facility] CPT-4: 74994 09/02/2018 ([id number]) 53858 EST. 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 P ATIENT, LEVEL III Diagnosis: Localized edema[ICD10: R60.0] Diagnosis: Gastro-esophageal reflux disease without esophagitis[ICD10: K21.9] Edna Almanza MD, [facility] CPT-4: 17381 01/18/2018 ([id number]) [id number] EST. P ATIENT, LEVEL IV Diagnosis: Gastro-esophageal reflux disease without esophagitis[ICD10: K21.9] Diagnosis: Localized edema[ICD10: R60.0] Diagnosis: Essential (primary) hypertension[ICD10: I10] Diagnosis: Hypothyroidism, unspecified[ICD10: E03.9] Diagnosis: Impaired fasting glucose[ICD10: R73.01] Edna Almanza MD, [facility] CPT-4: 98003 01/04/2018 ([id number]) 38802 EST. P ATIENT, LEVEL IV Diagnosis: Essential (primary) hypertension[ICD10: I10] Diagnosis: detention (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[ICD10: Z79.01] Diagnosis: Incisional hernia without obstruction or gangrene[ICD10: K43.2] Diagnosis: Right lower quadrant pain[ICD10: R10.31] Sarai Almanza MD, [facility] CPT-4: 64661 09/23/2017 [id number] 11026 EST. 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 PATIENT, LEVEL III Diagnosis: Pain in right hip[ICD10: M25.551] Nata Almanza MD, [facility] CPT-4: 76686 02/24/2017 ([id number]) 56897 EST. P ATIENT, LEVEL IV Diagnosis: Essential (primary) hypertension[ICD10: I10] Diagnosis: Localized edema[ICD10: R60.0] Diagnosis: Pain in right hip[ICD10: M25.551] Sarai Almanza MD, [facility] CPT-4: 78725 11/02/2016 ([id number]) 94042 EST. P ATIENT, LEVEL IV Diagnosis: Essential (primary) hypertension[ICD10: I10] Diagnosis: Localized edema[ICD10: R60.0] Sarai Almanza MD, [facility] CPT-4: 34440 09/30/2016 97585 EST. PATIENT, LEVEL IV Diagnosis: Localized edema[ICD10: R60.0] Diagnosis: Pain in joints of left hand[ICD10: M25.542] Diagnosis: Pain in joints of right hand[ICD10: M25.541] Nata Almanza MD, [facility] CPT-4: 38956 09/10/2016 05036 EST. PATIENT, LEVEL IV Diagnosis: Localized edema[ICD10: R60.0] Diagnosis: Pain in joints of left hand[ICD10: M25.542] Diagnosis: Pain in joints of right hand[ICD10: M25.541] Diagnosis: Other fatigue[ICD10: R53.83] Nata Almanza MD, [facility] CPT-4: 10925 08/20/2016 29854 EST. PATIENT, LEVEL IV Diagnosis: Essential (primary) hypertension[ICD10: I10] Diagnosis: Other fci (current) drug therapy[ICD10: Z79.899] Diagnosis: Tinnitus, bilateral[ICD10: H93.13] Nata Almanza MD, [facility] CPT-4: 11413 06/08/2016 86545 EST. PATIENT, LEVEL IV Diagnosis: Other allergic rhinitis[ICD10: J30.89] Diagnosis: Acute laryngopharyngitis[ICD10: J06.0] Nata Almanza MD, [facility] CPT-4: 32328 04/02/2016 27035 EST. PATIENT, LEVEL IV Diagnosis: Left upper quadrant pain[ICD10: R10.12] Nata Almanza MD, [facility] CPT-4: 08066 01/14/2016 58230 EST. PATIENT, LEVEL IV Diagnosis: Pain in left shoulder[ICD10: M25.512] Diagnosis: Body mass index (BMI) 40.0-44.9, adult[ICD10: Z68.41] Nata Almanza MD, [facility] CPT-4: 81110 10/02/2015 79962 EST. 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 - LEVEL 4 Diagnosis: ESSENTIAL HYPERTENSION[ICD9: 401.9] Diagnosis: HYPOTHYROIDISM[ICD9: 244.9] Diagnosis: ENCNTR LONG-RX USE NEC[ICD9: V58.69] Diagnosis: HYPERLIPIDEMIA[ICD9: 272.4] Diagnosis: Vitamin B12 deficiency[ICD9: 266.2] Diagnosis: Status post gastric surgery[ICD9: V45.89] Diagnosis: Snoring[ICD9: 786.09] [facility] CPT-4: 43962 01/22/2015 Plan of Care Planned Activity Notes C odes Status Date Visit Plan: Sinusitis - Pt has acut [...] allergy spray. 09/02/2018 Appointment: Nata Hsu WPtel: [address] [place], [place] [address] (15 min) Moderate 09/02/2018 Patient Education: Patient [...] Hgb A1C 04/14/2018 Appointment: Edna Douglas WPtel: [address] [place], [place] [phone] (15 min) Moderate 04/14/2018 Patient Education: Patient [...] to further attempt to reduce peripheral edema. NAVI-oogxgepq-nidxwhfm prilosec BID and carafate QID -discussed low spice, low acidic diet 01/18/2018 Appointment: Edna Douglas WPtel: [phone] [phone] (15 min) Moderate 01/18/2018 Patient Education: [...] on previous levels of control. 01/04/2018 Appointment: Misael Edna WPtel: [phone] [phone] [place] (30 min) Complex 01/04/2018 Patient Education: Patient Medication Summary Completed 01/04/2018 Care Plan: SCREENINGMAMMOGRAPHYDIGITAL LOINC : 67072-2 Pending 01/04/2018 Visit Plan: Abdominal hernia - not able to be taken to surgery by local providers and pt has been seen at [facility] and that surgeon felt like [...] home. 09/23/2017 Appointment: [facility] [phone] [facility] [place] (15 min) Moderate 09/23/2017 Patient [...] to medications. 05/27/2017 [phone] ([facility] min) Complex 05/27/2017 Patient [...] [place]. 02/24/2017 [facility]: [phone] [facility] [place] (30 min) Complex 02/24/2017 [...] dr. Chaney. 11/02/2016 Appointment: Sarai Almanza WPtel: [phone] [facility] (15 min) Moderate 11/02/2016 Patient [...] edema. 09/30/2016 Appointment: Sarai Almanza WPtel: [phone] [facility] (15 min) Moderate 09/30/2016 Patient [...] edema. 09/10/2016 Appointment: Nata Hsu WPtel: [phone] [facility] (30 min) Complex 09/10/2016 Patient Education: [...] peripheral edema. 08/20/2016 Appointment: Nata Hsu WPtel: [phone] [facility] (30 min) Complex 08/20/2016 Patient Education: Patient Medication Summary Completed 08/20/2016 Referral: [facility] Referral Initiated 07/02/2016 Visit Plan: Chronic Anticoagulant [...] 06/08/2016 Care Plan: Referral Order SNOMED-CT : [id number] Pending 06/08/2016 Visit Plan: URI - Pt [...] allergy spray. 04/02/2016 Appointment: Nata Hsu WPtel: [phone] [facility] (30 min) Complex 04/02/2016 Patient Education: [...] pain 01/14/2016 [facility]ment: [phone] (30 min) Complex 01/14/2016 Patient Education: Patient Medication Summary Completed 01/14/2016 Patient Education: Obesity Completed 01/14/2016 Care Plan: BMI Above normal followup DAVID F-MGMT EDUC & TRAIN 1 PT Pending 10/24/2015 Care Plan: X-RAY EXAM OF SHOULDER LOINC : 30598-6 Pending 10/24/2015 Visit Plan: Left shoulder pain [...] check. 10/02/2015 [facility]ment: [phone] [phone] (15 min) Moderate 10/02/2015 Patient [...] [facility] (15 min) Moderate 04/22/2015 Visit Plan: [...] have surgical fixation - planning occurring at [facility]. Snoring - Sleep apnea symptoms with [...] medications. 01/22/2015 Appointment: Sarai Almanza WPtel: [facility] [place] ([place] New Patient 01/22/2015 Patient Education: Patient Medication Summary Completed 01/22/2015 Patient Education: Hypertension Completed 01/22/2015 [facility] Ref[facility] Initiated Instructions Comment dr willis kaplan e the staff get [...] have surgical fixation - planning occurring at [facility]. Snoring - Sleep apnea symptoms with [...] to further attempt to reduce peripheral edema. QTIZ-fmzhfgax-kgyachvp prilosec BID and carafate QID -discussed low [...] and pt has been seen at [facility] and that surgeon felt like [...]
--- OUTSIDE RECORDS SUMMARY | 2020-01-16 23:15 | XMS REPORT | CCD ---
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 [place] Medicare Part B [id number] 2017 Unknown Family history Father Diagnosis Age At Onset Hyperlipidemia Unknown Heart Attack Unknown Mother Diagnosis Age At Onset Arthritis Unknown Social History Social History Element Codes Description Effective Dates Marital status Unknown M arried Nathan 09/30/2016 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 Number of children Unknown 3 01/22/[address]: 605760645 Never smoker 01/22/[address]: 714368298 Never drinks alcohol 01/22/2015 Allergies, Adverse Reactions, Alerts Substance Reaction Codes Entered Date Inactivated Date Status * NO KNOWN DRUG ORIN RGIES Unknown 01/22/2015 No Inactive Date Active Past Medical History Illness Codes Condition Status Onset Date Resolved Date Hypothyroidism, unsp ecified ICD-9: 244.9 ICD-10: E03.9 Active 05/27/2017 Unknown residential (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 ICD-9: V58.61 ICD-10: [...] 780.79 ICD-10: R53.83 Active 08/20/2016 Unknown Other fpc (cur rent) drug therapy ICD-9: V58.69 ICD-10: [...] ICD-9: 244.9 ICD-10: E03.9 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/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 ICD-9: V58.61 ICD-10: [...] ICD-9: 780.79 ICD-10: R53.83 08/20/2016 Active Other fpc (cur rent) drug therapy ICD-9: V58.69 ICD-10: [...] Fill Instructions Carafate 1 gram tablet RxNorm: 677596 TAKE ONE TABLET BY MOUTH BEFORE MEALS AN D AT BEDTIME 09/26/2018 11/16/2018 Active potassium chloride E R 20 mEq tablet,extended release RxNorm: 530708 1 Tablet(s) PO daily 09/02/2018 12/30/2018 Active Plavix 75 mg tablet RxNorm: 193082 TAKE ONE TABLET BY MOUTH DAILY 09/02/2018 02/28/2019 Ac tive prednisone 10 mg tablet RxNorm: 342156 Tablet(s) PO 09/02/2018 No Stop Date Active 60,60,50,50,40,40,30,30,20,20,10,10 Synthroid 125 mcg ta blet RxNorm: 966896 1 Tablet(s) PO daily 09/02/2018 08/27/2019 Active potassium chloride E R 20 mEq tablet,extended release RxNorm: 944945 1 Tablet(s) PO daily 09/02/2018 09/01/2018 Inactive Synthroid 125 mcg ta blet RxNorm: 049712 1 Tablet(s) PO daily 09/02/2018 09/01/2018 Inactive Keflex 500 mg capsule RxNorm: 661634 1 Capsule(s) PO TID 09/02/2018 09/08/2018 Inactive Kenalog 40 mg/mL maxine pension for injection RxNorm: 9040783 Milliliter(s) Inj 09/02/2018 09/02/2018 In active Lipitor 40 mg tablet RxNorm: 761731 TAKE ONE TABLET BY MOUTH DAILY 07/29/2018 07/23/2019 Ac tive Coumadin 1 mg tablet RxNorm: 835927 TAKE ONE TABLET BY MOUTH DAILY 07/29/2018 10/26/2018 Ac tive Carafate 1 gram tablet RxNorm: 190990 TAKE ONE TABLET BY MOUTH BEFORE MEALS AN D AT BEDTIME 07/28/2018 09/17/2018 Inactive Coumadin 4 mg tablet RxNorm: 244511 2 Tablet(s) daily 07/11/2018 02/05/2019 Active Hanh louise For:COUMADIN 4MG 07/22/2017 8:58:26 AM Coumadin 5 mg tablet RxNorm: 344425 Tablet(s) TAKE 1 TABLET BY MOUTH DIRE CTED 07/08/2018 01/03/2019 Ac tive Generic For:COUMADIN 5MG TAB 03/21/2018 9:13:00 AM Coumadin 4 mg tablet RxNorm: 244649 Tablet(s) TAKE 1 TABLET BY MOUTH THREE T IMES PER WEEK (WEDNESDAY, WEDNESDAY AND WEDNESDAY) 07/08/2018 07/10/2018 Inactive Gene andre For:COUMADIN 4MG 07/22/2017 8:58:26 AM Coumadin 1 mg tablet RxNorm: 022168 1 Tablet(s) PO daily 07/08/2018 08/06/2018 Inactive venlafaxine ER 75 mg capsule,extended release 24 hr RxNorm: 594879 Capsule(s) TAKE 1 CAPSULE BY MOUTH ONCE DAILY 06/23/2018 06/17/2019 Active Generic For:*EFFEXOR XR 75MG 06/19/2017 12:23:45 PM sodium bicarbonate 6 50 mg tablet RxNorm: 739060 Tablet(s) TAKE 2 TABL ETS BY MOUTH TWICE DAILY 06/23/2018 12/19/2018 Active 12/20/2017 9:10:59 AM Coumadin 1 mg tablet RxNorm: 685894 1 Tablet(s) PO daily 06/17/2018 07/07/2018 Inactive Coumadin 1 mg tablet RxNorm: 901482 1 Tablet(s) PO daily 06/17/2018 06/16/2018 Inactive clonazepam 0.5 mg ta blet RxNorm: 691729 1 Tablet(s) PO BID 06/08/2018 11/04/2018 Active spironolactone 25 mg tablet RxNorm: 470527 TAKE 1 TABLET BY MOUT H EVERY DAY 05/18/2018 05/12/2019 Ac tive Generic For:*ALDACTONE 25MG 05/18/2018 8:57:50 AM Carafate 1 gram tablet RxNorm: 586143 TAKE ONE TABLET BY MOUTH BEFORE MEALS AN D AT BEDTIME 05/18/2018 07/12/2018 Inactive Generic For:CARAFATE 1GM 1 07/18/2017 8:38:28 AM Synthroid 137 mcg ta blet RxNorm: 451928 TAKE 1 TABLET BY MOUT H ONCE DAILY 05/18/2018 08/30/2018 In active Generic For:SYNTHROID 137MCG TAB 2017 8:57:54 AM allopurinol 300 mg t ablet RxNorm: 092576 TAKE 1 TABLET BY MOUT H ONCE DAILY. 04/18/2018 10/14/2018 Ac tive Generic For:ZYLOPRIM 300 MG TABLET 03/22 9:13:47 AM Lasix 20 mg tablet RxNorm: 519430 TAKE ONE TABLET BY MOUTH DAILY 04/18/2018 08/15/2018 In active Generic For:LASIX 20MG 04/18/2018 9:13: 50 AM Carafate 1 gram tablet RxNorm: 048614 TAKE ONE TABLET BY MOUTH BEFORE MEALS AN D AT BEDTIME 04/18/2018 05/17/2018 Inactive Generic For:CARAFATE 1GM 1 9:32:51 AM Coumadin 5 mg tablet RxNorm: 519223 TAKE 1 TABLET BY MOUTH DIRECTED 03/21/2018 07/07/2018 In active Generic For:COUMADIN 5MG TAB 03/21/2018 9:13:00 AM Carafate 1 gram tablet RxNorm: 440789 TAKE ONE TABLET BY MOUTH BEFORE MEALS AN D AT BEDTIME 03/21/2018 04/17/2018 Inactive Generic For:CARAFATE 1GM 1 9:14:24 AM Carafate 1 gram tablet RxNorm: 791951 1 Tablet(s) PO AC & HS 02/17/2018 03/20/2018 Inactive atenolol 100 mg tablet RxNorm: 112256 1 Tablet(s) PO daily 02/04/2018 09/01/2018 Inactive atenolol 50 mg tablet RxNorm: 489924 1 Tablet(s) PO daily 02/03/2018 02/03/2018 Inactive omeprazole 20 mg cap sean,delayed release RxNorm: 655042 1 Capsule(s) BID 01/21/2018 01/15/2019 Ac tive Generic For:PRILOSEC 20MG 07/22/2017 8:5 8:20 AM Carafate 1 gram tablet RxNorm: 134009 1 Tablet(s) PO AC & HS 01/21/2018 02/16/2018 Inactive Carafate 1 gram tablet RxNorm: 604405 1 Tablet(s) PO AC & HS 01/18/2018 01/20/2018 Inactive Carafate 1 gram tablet RxNorm: 182624 1 Tablet(s) PO AC & HS 01/18/2018 02/27/2018 Inactive Carafate 1 gram tablet RxNorm: 902233 1 Tablet(s) PO AC & HS TAKE ONE TABLET B Y MOUTH TWICE DAILY 01/18/2018 05/17/2018 Inactive Generic For:CARAFATE 1GM 0 12/20/2017 9:10:56 AM omeprazole 20 mg cap sean,delayed release RxNorm: 671992 Capsule(s) TAKE 1 CAP SEAN BY MOUTH EVERY DAY 01/17/2018 01/20/2018 Inactive Generic For:PRILOSEC 20MG 0 07/22/2017 8:58:20 AM omeprazole 20 mg cap sean,delayed release RxNorm: 317557 Capsule(s) TAKE 1 CAP SEAN BY MOUTH EVERY DAY 01/14/2018 01/16/2018 Inactive Generic For:PRILOSEC 20MG 07/22/2017 8:58:20 AM clonazepam 0.5 mg ta blet RxNorm: 387025 1 Tablet(s) PO BID 01/07/2018 06/05/2018 Inactive Plavix 75 mg tablet RxNorm: 815663 1 Tablet(s) PO daily 01/07/2018 07/05/2018 Inactive Carafate 1 gram tablet RxNorm: 204323 1 Tablet(s) PO AC & HS 01/04/2018 01/17/2018 Inactive Lasix 20 mg tablet RxNorm: 846769 TAKE ONE TABLET BY MOUTH DAILY 12/20/2017 04/17/2018 In active Generic For:LASIX 20MG 12/20/2017 9:11: 03 AM sodium bicarbonate 6 50 mg tablet RxNorm: 810547 TAKE 2 TABLETS BY JVAON TH TWICE DAILY 12/20/2017 06/17/2018 In active 12/20/2017 9:10:59 AM Carafate 1 gram tablet RxNorm: 077855 TAKE ONE TABLET BY MOUTH TWICE DAILY 12/20/2017 01/17/2018 In active Generic For:CARAFATE 1GM 12/20/2017 9:1 0:56 AM Synthroid 137 mcg ta blet RxNorm: 716943 TAKE 1 TABLET BY MOUT H ONCE DAILY 11/19/2017 05/17/2018 In active Generic For:SYNTHROID 137MCG TAB 2017 8:58:04 AM Detrol LA 4 mg capsu le,extended release RxNorm: 074766 TAKE 1 CAPSULE BY JAVON TH ONCE DAILY 10/20/2017 04/13/2018 Inactive Generic For:DETROL LA 4MG C AP 10/20/2017 9:01:56 AM allopurinol 300 mg t ablet RxNorm: 861564 TAKE 1 TABLET BY MOUT H ONCE DAILY. 10/20/2017 04/17/2018 In active Generic For:ZYLOPRIM 300 MG TABLET 07/2017 9:01:59 AM Coumadin 5 mg tablet RxNorm: 488395 1 Tablet(s) PO UD 10/01/2017 03/20/2018 Inactive cyclobenzaprine 5 mg tablet RxNorm: 151018 1 Tablet(s) PO TID as needed myscle spasm 09/23/2017 10/12/2017 Inactive Lipitor 40 mg tablet RxNorm: 852073 TAKE 1 TABLET BY MOUTH ONCE DAILY 09/20/2017 07/28/2018 In active Generic For:LIPITOR 40MG 09/20/2017 8:5 6:04 AM atenolol 100 mg tablet RxNorm: 309963 1 Tablet(s) PO daily 08/30/2017 02/03/2018 Inactive atenolol 50 mg tablet RxNorm: 691507 1 Tablet(s) PO daily 08/30/2017 08/30/2017 Inactive Lovenox 30 mg/0.3 mL subcutaneous syringe RxNorm: 818870 0.3 Milliliter(s) SQ Q12H 08/24/2017 09/06/2017 In active Lasix 20 mg tablet RxNorm: 298531 TAKE ONE TABLET BY MOUTH DAILY 08/23/2017 12/19/2017 In active Generic For:LASIX 20MG 08/21/2017 9:04: 27 AM Synthroid 137 mcg ta blet RxNorm: 704039 TAKE 1 TABLET BY MOUT H ONCE DAILY 08/23/2017 11/18/2017 In active Generic For:SYNTHROID 137MCG TAB 2017 9:04:30 AM Lovenox 30 mg/0.3 mL subcutaneous syringe RxNorm: 357359 0.3 Milliliter(s) SQ Q12H 08/10/2017 08/23/2017 In active clonazepam 0.5 mg ta blet RxNorm: 399413 1 Tablet(s) PO BID 08/04/2017 12/30/2017 Inactive Coumadin 4 mg tablet RxNorm: 220659 TAKE 1 TABLET BY MOUTH THREE TIMES PER W [place] (WEDNESDAY, WEDNESDAY AND WEDNESDAY) 07/22/2017 02/16/2018 Inactive Generic For:COUMADIN 4MG 07/22/2017 8:58:26 AM omeprazole 20 mg cap sean,delayed release RxNorm: 112271 TAKE 1 CAPSULE BY JAVON TH EVERY DAY 07/22/2017 01/13/2018 Inactive Generic For:PRILOSEC 20MG 07/22/2017 8: 58:20 AM Coumadin 4 mg tablet RxNorm: 666307 TAKE 1 TABLET BY MOUTH THREE TIMES PER [place] (WEDNESDAY, WEDNESDAY AND WEDNESDAY) 07/22/2017 02/16/2018 Inactive Generic For:COUMADIN 4MG 07/22/2017 8:58:26 AM sodium bicarbonate 6 50 mg tablet RxNorm: 172181 TAKE 2 TABLETS BY JAVON TH TWICE DAILY 06/22/2017 12/18/2017 In active 06/19/2017 12:23:30 PM venlafaxine ER 75 mg capsule,extended release 24 hr RxNorm: 381150 TAKE 1 CAPSULE BY MOUTH ONCE DAILY 06/22/2017 06/16/2018 Inactive Generic For:*EFFEXOR XR 75M G 06/19/2017 12:23:45 PM Coumadin 5 mg tablet RxNorm: 543764 1 Tablet(s) PO UD 06/01/2017 09/30/2017 Inactive Keflex 500 mg capsule RxNorm: 223305 1 Capsule(s) PO TID 05/27/2017 06/02/2017 Inactive Synthroid 137 mcg ta blet RxNorm: 893169 TAKE 1 TABLET BY MOUT H ONCE DAILY 05/24/2017 08/21/2017 In active Generic For:SYNTHROID 137MCG TAB 2016 8:55:59 AM Carafate 1 gram tablet RxNorm: 583247 TAKE ONE TABLET BY MOUTH TWICE DAILY 05/24/2017 12/19/2017 In active Generic For:CARAFATE 1GM 05/24/2017 8:5 5:54 AM spironolactone 25 mg tablet RxNorm: 055337 1 Tablet(s) PO daily 05/24/2017 05/17/2018 Inactive Detrol LA 4 mg capsu le,extended release RxNorm: 825942 1 Capsule(s) PO daily TAKE 1 CAPSULE BY MOUTH ONCE DAILY 05/10/2017 10/19/2017 Inactive Generic For:DETROL LA 4MG CAP 02/19/2017 2:36:00 PM Lasix 20 mg tablet RxNorm: 339701 TAKE ONE TABLET BY MOUTH DAILY 04/23/2017 08/20/2017 In active Generic For:LASIX 20MG 04/23/2017 9:04: 01 AM Coumadin 4 mg tablet RxNorm: 225400 TAKE 1 TABLET BY MOUTH THREE TIMES PER [place] (WEDNESDAY, WEDNESDAY AND WEDNESDAY) 04/23/2017 07/21/2017 Inactive Generic For:COUMADIN 4MG 04/23/2017 9:04:05 AM allopurinol 300 mg t ablet RxNorm: 105608 TAKE 1 TABLET BY MOUT H ONCE DAILY. 04/23/2017 10/19/2017 In active Generic For:ZYLOPRIM 300 MG TABLET 08/2016 9:03:57 AM potassium chloride 2 0 mEq/15 mL oral liquid RxNorm: 863669 Milliliter(s) 30 Milliliter(s) (40mEq) PO daily 03/24/2017 07/21/2017 Inactive Lovenox 30 mg/0.3 mL subcutaneous syringe RxNorm: 424170 0.3 Milliliter(s) SQ Q12H 03/22/2017 03/26/2017 In active Lovenox 30 mg/0.3 mL subcutaneous syringe RxNorm: 111808 0.3 Milliliter(s) SQ Q12H 03/19/2017 03/20/2017 In active Lovenox 30 mg/0.3 mL subcutaneous syringe RxNorm: 452305 0.3 Milliliter(s) SQ Q12H 03/16/2017 03/18/2017 In active clonazepam 0.5 mg ta blet RxNorm: 585319 1 Tablet(s) PO BID 03/02/2017 07/28/2017 Inactive Lovenox 30 mg/0.3 mL subcutaneous syringe RxNorm: 245718 1 injection SQ BID do NOT take the night time dose the day before surgery, or the morning dose the day of surgery 03/01/2017 03/07/2017 Inactive Lovenox 30 mg/0.3 mL subcutaneous syringe RxNorm: 971822 1 injection SQ BID 03/01/2017 02/28/2017 In active Detrol LA 4 mg capsu le,extended release RxNorm: 079999 TAKE 1 CAPSULE BY JAVON TH ONCE DAILY 02/19/2017 05/09/2017 Inactive Generic For:DETROL LA 4MG C AP 02/19/2017 2:36:00 PM hydrocodone 5 mg-humberto taminophen 325 mg tablet RxNorm: 088849 1-2 Tablet(s) PO Q6 P RN 02/04/2017 No Stop Date Active Zetia 10 mg tablet RxNorm: 050765 TAKE 1 TABLET BY MOUTH DAILY 01/25/2017 04/13/2018 Inactive 01/23/2017 9:03:48 AM omeprazole 20 mg cap sean,delayed release RxNorm: 610807 TAKE 1 CAPSULE BY JAVON TH EVERY DAY 01/25/2017 07/21/2017 Inactive Generic For:PRILOSEC 20MG 01/23/2017 9: 03:45 AM Coumadin 4 mg tablet RxNorm: 861520 TAKE 1 TABLET BY MOUTH THREE TIMES PER [place] (WEDNESDAY, WEDNESDAY AND WEDNESDAY) 01/25/2017 04/22/2017 Inactive Generic For:COUMADIN 4MG 01/23/2017 9:03:51 AM sodium bicarbonate 6 50 mg tablet RxNorm: 535211 TAKE 2 TABLETS BY JAVON TH TWICE DAILY 12/24/2016 06/21/2017 In active 12/24/2016 9:09:27 AM Lasix 20 mg tablet RxNorm: 347345 1 Tablet(s) PO daily 12/24/2016 04/22/2017 Inactive Synthroid 137 mcg ta blet RxNorm: 544607 TAKE 1 TABLET BY MOUT H ONCE DAILY 11/24/2016 05/22/2017 In active Generic For:SYNTHROID 137MCG TAB 2016 9:04:37 AM Coumadin 4 mg tablet RxNorm: 664688 TAKE 1 TABLET BY MOUTH THREE TIMES PER [place] (WEDNESDAY, WEDNESDAY AND WEDNESDAY) 11/24/2016 01/22/2017 Inactive Generic For:COUMADIN 4MG 11/24/2016 9:04:41 AM hydrocodone 5 mg-humberto taminophen 325 mg tablet RxNorm: 027882 1-2 Tablet(s) PO Q6 P RN 11/17/2016 02/03/2017 In active Carafate 1 gram tablet RxNorm: 456288 TAKE ONE TABLET BY MOUTH TWICE DAILY 10/27/2016 05/23/2017 In active Generic For:CARAFATE 1GM 10/26/2016 8:3 9:42 AM allopurinol 300 mg t ablet RxNorm: 846872 Tablet(s) TAKE 1 TABL ET BY MOUTH ONCE DAILY. 10/26/2016 04/22/2017 Inactive Lipitor 40 mg tablet RxNorm: 750521 1 Tablet(s) PO daily 09/25/2016 09/19/2017 Inactive Coumadin 4 mg tablet RxNorm: 955015 TAKE 1 TABLET BY MOUTH THREE TIMES PER [place] (WEDNESDAY, WEDNESDAY AND WEDNESDAY) 09/25/2016 11/23/2016 Inactive Generic For:COUMADIN 4MG 09/25/2016 8:55:58 AM Zetia 10 mg tablet RxNorm: 686328 1 Tablet(s) PO daily 09/25/2016 01/22/2017 Inactive gave 1 month of samples clonazepam 0.5 mg ta blet RxNorm: 395120 1 Tablet(s) PO BID 09/21/2016 02/16/2017 Inactive Lasix 20 mg tablet RxNorm: 744191 1 Tablet(s) PO daily 09/15/2016 12/23/2016 Inactive potassium chloride 2 0 mEq/15 mL oral liquid RxNorm: 326650 Milliliter(s) 30 Milliliter(s) (40mEq) PO daily 09/15/2016 01/12/2017 Inactive Lasix 20 mg tablet RxNorm: 501376 2 Tablet(s) PO daily 09/10/2016 09/12/2016 Inactive Lasix 20 mg tablet RxNorm: 083959 1 Tablet(s) PO daily 08/28/2016 08/30/2016 Inactive Lasix 20 mg tablet RxNorm: 658810 1 Tablet(s) PO daily 08/20/2016 08/22/2016 Inactive Detrol LA 4 mg capsu le,extended release RxNorm: 264318 TAKE 1 CAPSULE BY JAVON TH ONCE DAILY 07/27/2016 02/18/2017 Inactive Generic For:DETROL LA 4MG C AP 07/27/2016 9:08:27 AM Coumadin 4 mg tablet RxNorm: 472239 1 Tablet(s) PO 3 x week e [facility] 07/27/2016 09/24/2016 In active omeprazole 20 mg cap sean,delayed release RxNorm: 653511 Capsule(s) PO TAKE 1 CAPSULE BY MOUTH ONCE DAILY 07/27/2016 01/22/2017 Inactive venlafaxine ER 75 mg capsule,extended release 24 hr RxNorm: 494364 1 Capsule(s) PO daily 06/29/2016 06/21/2017 Inactive sodium bicarbonate 6 50 mg tablet RxNorm: 090613 TAKE 2 TABLETS BY [facility] TWICE DAILY 06/29/2016 12/23/2016 In active 06/27/2016 9:05:39 AM Coumadin 4 mg tablet RxNorm: 999432 1 Tablet(s) PO 3 x week [facility] 06/09/2016 06/08/2016 In active Coumadin 4 mg tablet RxNorm: 677389 1 Tablet(s) PO 3 x week e [facility] 06/09/2016 07/26/2016 In active Zetia 10 mg tablet RxNorm: 840741 1 Tablet(s) PO daily 06/09/2016 06/08/2016 Inactive gave 1 month of samples Zetia 10 mg tablet RxNorm: 134898 1 Tablet(s) PO daily 06/09/2016 09/24/2016 Inactive gave 1 month of samples Effexor 75 mg tablet RxNorm: 214626 1 Tablet(s) PO daily 06/08/2016 06/28/2016 Inactive spironolactone 25 mg tablet RxNorm: 267164 1 Tablet(s) PO daily 06/08/2016 05/23/2017 Inactive Synthroid 137 mcg ta blet RxNorm: 597270 1 Tablet(s) PO daily 05/07/2016 11/02/2016 Inactive allopurinol 300 mg t ablet RxNorm: 544685 Tablet(s) TAKE 1 TABL ET BY MOUTH ONCE DAILY. 04/28/2016 10/24/2016 Inactive clonazepam 0.5 mg ta blet RxNorm: 792133 1 Tablet(s) PO BID 04/20/2016 09/15/2016 Inactive Flonase Allergy Reli ef 50 mcg/actuation nasal spray,suspension RxNorm: 0075719 1 [place] NASAL BID 04/02/2016 No Stop Date Active Zithromax Z-Thomas 250 mg tablet RxNorm: 153563 Tablet(s) PO 04/02/2016 08/27/2016 Inactive cetirizine 10 mg tablet RxNorm: 7586004 1 Tablet(s) PO daily 04/02/2016 05/01/2016 Inactive Carafate 1 gram tablet RxNorm: 409170 Tablet(s) TAKE 1 TABLET TWICE A DAY FOR 30 DAYS 03/30/2016 10/25/2016 Inactive Generic For:CARAFATE 1GM 02/08/2015 12:3 6:39 PM Plavix 75 mg tablet RxNorm: 973028 1 Tablet(s) PO daily 03/11/2016 09/06/2016 Inactive sodium bicarbonate 6 50 mg tablet RxNorm: 870198 Tablet(s) 2 Tablet(s) PO BID 02/28/2016 06/26/2016 In active omeprazole 20 mg cap sean,delayed release RxNorm: 941747 Capsule(s) PO TAKE 1 CAPSULE BY MOUTH ONCE DAILY 01/31/2016 07/26/2016 Inactive Fish Oil 1,000 mg ca psule RxNorm: 1 Capsule(s) PO BID 01/14/2016 No Stop Date Active Synthroid 137 mcg ta blet RxNorm: 303715 1 Tablet(s) PO daily 01/14/2016 05/06/2016 Inactive Detrol LA 4 mg capsu le,extended release RxNorm: 633749 TAKE 1 CAPSULE BY JAVON TH ONCE DAILY 12/30/2015 07/26/2016 Inactive Generic For:DETROL LA 4MG C AP 12/30/2015 9:11:01 AM potassium chloride 2 0 mEq/15 mL oral liquid RxNorm: 640871 Milliliter(s) 30 Milliliter(s) (40mEq) PO daily 12/02/2015 03/30/2016 Inactive sodium bicarbonate 6 50 mg tablet RxNorm: 823044 Tablet(s) 2 Tablet(s) PO BID 10/31/2015 02/27/2016 In active Lipitor 40 mg tablet RxNorm: 856751 1 Tablet(s) PO daily 10/09/2015 09/24/2016 Inactive sodium bicarbonate 6 50 mg tablet RxNorm: 073095 2 Tablet(s) PO BID 10/01/2015 10/30/2015 Inactive allopurinol 300 mg t ablet RxNorm: 542736 TAKE 1 TABLET BY MOUT H ONCE DAILY. 10/01/2015 04/27/2016 In active Generic For:ZYLOPRIM 300 MG TABLET 09/19 9:21:15 AM clonazepam 0.5 mg ta blet RxNorm: 892420 1 Tablet(s) PO BID 09/30/2015 04/19/2016 Inactive Coumadin 5 mg tablet RxNorm: 700871 1 Tablet(s) PO daily 09/27/2015 05/31/2017 Inactive Generic For:COUMADIN 5MG TAB N O T I C E PRESCRIPTION PREVIOUSLY AUTHORIZED BY DOCTOR:BOBBY ZULETA Synthroid 125 mcg ta blet RxNorm: 239048 1 Tablet(s) PO daily 09/27/2015 09/26/2015 Inactive Synthroid 125 mcg ta blet RxNorm: 900652 1 Tablet(s) PO daily 09/27/2015 01/13/2016 Inactive Carafate 1 gram tablet RxNorm: 238462 Tablet(s) TAKE 1 TABLET TWICE A DAY FOR 30 DAYS 09/02/2015 03/29/2016 Inactive Generic For:CARAFATE 1GM 02/08/2015 12:3 6:39 PM sodium bicarbonate 6 50 mg tablet RxNorm: 169764 2 Tablet(s) PO BID 09/02/2015 09/30/2015 Inactive Prilosec 20 mg capsu le,delayed release RxNorm: 454329 TAKE 1 CAPSULE BY JAVON TH ONCE DAILY 08/02/2015 01/28/2016 Inactive Generic For:PRILOSEC 20MG 08/02/2015 10:03:09 AM N O T I C E PRESCRIPTION PREVIOUSLY AUTHORIZED BY DOCTOR:BOBBY ZULETA Zyrtec 10 mg capsule RxNorm: 9254336 1 Capsule(s) PO daily 07/15/2015 08/13/2015 Inactive Keflex 500 mg capsule RxNorm: 414610 1 Capsule(s) PO TID 07/15/2015 07/21/2015 Inactive cetirizine 10 mg cap sean RxNorm: 0041315 1 Capsule(s) PO daily 07/15/2015 08/13/2015 Inactive hydrocodone 5 mg-humberto taminophen 325 mg tablet RxNorm: 667530 1-2 Tablet(s) PO Q6 P RN 06/10/2015 11/16/2016 In active sodium bicarbonate 6 50 mg tablet RxNorm: 743372 2 Tablet(s) PO BID 06/03/2015 08/31/2015 Inactive Detrol LA 4 mg capsu le,extended release RxNorm: 307700 TAKE 1 CAPSULE BY JAVON TH ONCE DAILY 06/03/2015 12/29/2015 Inactive Generic For:DETROL LA 4MG C AP N O T I C E PRESCRIPTION PREVIOUSLY AUTHORIZED BY DOCTOR:BOBBY ZULETA atenolol 50 mg tablet RxNorm: 251180 1 Tablet(s) PO daily TAKE 1 TABLET BY MO UTH DAILY 05/07/2015 08/23/2017 Inactive Generic For:TENORMIN 50MG 05/04/2015 9:07:22 AM spironolactone 25 mg tablet RxNorm: 595751 1 Tablet(s) PO daily 05/06/2015 06/07/2016 Inactive venlafaxine ER 75 mg capsule,extended release 24 hr RxNorm: 573276 1 Capsule(s) PO daily 05/04/2015 06/28/2016 Inactive atenolol 50 mg tablet RxNorm: 296759 TAKE 1 TABLET BY MOUTH DAILY 05/04/2015 05/06/2015 Inactive Generic For:TENORMIN 50MG 05/04/2015 9: 07:22 AM Synthroid 150 mcg ta blet RxNorm: 491280 TAKE 1 TABLET BY MOUT H ONCE DAILY. 04/05/2015 09/26/2015 In active Generic For:SYNTHROID 150MCG TAB 2014 4:45:40 PM N O T I C E PRESCRIPTION PREVIOUSLY AUTHORIZED BY DOCTOR:BOBBY ZULETA Effexor 75 mg tablet RxNorm: 176164 1 Tablet(s) PO daily 04/05/2015 07/03/2015 Inactive Coumadin 5 mg tablet RxNorm: 030517 TAKE 1 AND 1/2 TABLETS BY MOUTH ONCE MYRANDA LY 04/04/2015 09/26/2015 In active Generic For:COUMADIN 5MG TAB N O T I C E PRESCRIPTION PREVIOUSLY AUTHORIZED BY DOCTOR:BOBBY ZULETA clonazepam 0.5 mg ta blet RxNorm: 940084 1 Tablet(s) PO BID 03/13/2015 11/05/2015 Inactive sodium bicarbonate 6 50 mg tablet RxNorm: 206430 2 Tablet(s) PO BID 03/08/2015 06/02/2015 Inactive allopurinol 300 mg t ablet RxNorm: 364900 TAKE 1 TABLET BY MOUT H ONCE DAILY. 03/05/2015 09/30/2015 In active N O T I C E PRESCRIPTION PREVIOUSLY A UTHORIZED BY DOCTOR:BOBBY ZULETA Plavix 75 mg tablet RxNorm: 185608 1 Tablet(s) PO daily 02/12/2015 09/09/2015 Inactive clonazepam 0.5 mg ta blet RxNorm: 896421 1 Tablet(s) PO BID 02/11/2015 03/11/2015 Inactive Carafate 1 gram tablet RxNorm: 735685 TAKE 1 TABLET TWICE A DAY FOR 30 DAYS 02/08/2015 02/07/2015 In active Generic For:CARAFATE 1GM 02/08/2015 12:3 6:39 PM Carafate 1 gram tablet RxNorm: 919559 Tablet(s) TAKE 1 TABLET TWICE A DAY FOR 30 DAYS 02/08/2015 09/01/2015 Inactive Generic For:CARAFATE 1GM 02/08/2015 12:3 6:39 PM potassium chloride 2 0 mEq/15 mL oral liquid RxNorm: 514407 30 Milliliter(s) (40m Eq) PO daily 02/05/2015 12/01/2015 Inactive atenolol 50 mg tablet RxNorm: 219516 1 Tablet(s) PO daily 02/04/2015 05/03/2015 Inactive [SAVINGS FOR NON-COVERED DRUGS -- BIN:00 5014, PCN: [id number], Group: XXXXX, ID# [id number], Questions: . THIS IS NOT INSURANCE.] potassium chloride 2 0 mEq/15 mL oral liquid RxNorm: 845240 30 Milliliter(s) (40m Eq) PO daily 01/08/2015 02/04/2015 Inactive potassium chloride 2 0 mEq/15 mL oral liquid RxNorm: 245742 30 Milliliter(s) (40m Eq) PO daily 12/07/2014 01/07/2015 Inactive atenolol 50 mg tablet RxNorm: 331036 1 Tablet(s) PO daily 11/09/2014 11/08/2014 Inactive atenolol 50 mg tablet RxNorm: 636552 1 Tablet(s) PO daily 11/09/2014 02/03/2015 Inactive [SAVINGS FOR NON-COVERED DRUGS -- BIN:00 3087, PCN: [id number], Group: XXXXX, ID# [id number], Questions: . THIS IS NOT INSURANCE.] Voltaren 1 % topical gel RxNorm: 117569 TOP No St art Date Active verapamil ER (HS) 24 0 mg tablet,extended release 24 hr RxNorm: 822007 1 Tablet(s) PO daily No Start Date Active aspirin 81 mg tablet RxNorm: 829194 1 Tablet(s) PO daily No Start Date Active Zofran 4 mg tablet RxNorm: 923318 1 Tablet(s) PO PRN No Start Date Active B12 1000 mcg RxNorm: 1 Tablet(s) PO daily No Start Date Active magnesium oxide 400 mg capsule RxNorm: 970885 2 Capsule(s) PO BID No Start Date Active Synthroid 150 mcg ta blet RxNorm: 707927 1 Tablet(s) PO daily No Start Date 04/04/2015 Inactive Coumadin 5 mg tablet RxNorm: 130593 1 Tablet(s) PO daily No Start Date 04/03/2015 Inactive cranberry 1,000 mg c apsule RxNorm: 976673 1 Capsule(s) PO daily No Start Date 04/13/2018 Inactive allopurinol 300 mg t ablet RxNorm: 775295 1 Tablet(s) PO daily No Start Date 03/04/2015 Inactive Prilosec 20 mg capsu le,delayed release RxNorm: 935935 1 Capsule(s) PO PRN No Start Date 08/01/2015 Inactive potassium chloride 2 0 mEq/15 mL oral liquid RxNorm: 515417 30 Milliliter(s) (40m Eq) PO daily No Start Date 12/06/2014 Inactive atenolol 50 mg tablet RxNorm: 529771 1 Tablet(s) PO daily No Start Date 08/29/2017 Inactive Lipitor 40 mg tablet RxNorm: 596475 1 Tablet(s) PO daily No Start Date 09/19/2017 Inactive Effexor 75 mg tablet RxNorm: 985141 1 Tablet(s) PO daily No Start Date 04/04/2015 Inactive Carafate 1 gram tablet RxNorm: 476286 1 Tablet(s) PO BID No Start Date 02/07/2015 Inactive clonazepam 0.5 mg ta blet RxNorm: 277638 1 Tablet(s) PO BID No Start Date 02/10/2015 Inactive Plavix 75 mg tablet RxNorm: 845675 1 Tablet(s) PO daily No Start Date 02/11/2015 Inactive sodium bicarbonate 6 50 mg tablet RxNorm: 593765 2 Tablet(s) PO BID No Start Date 09/01/2015 Inactive Lovenox 30 mg/0.3 mL subcutaneous syringe RxNorm: 444519 0.3 Milliliter(s) SQ Q12H No Start Date 03/15/2017 Inactive Fish Oil 1,000 mg ca psule RxNorm: 1 Capsule(s) PO daily No Start Date 01/13/2016 Inactive Detrol LA 4 mg capsu le,extended release RxNorm: 951703 1 Capsule(s) PO daily No Start Date 06/02/2015 Inactive Medication Administered Medication Codes Instruc tions Start Date Status Kenalog 40 mg/mL suspension for injection RxNorm: 2919143 Milliliter 09/02/2018 No longer Active Immunizations Vaccine Codes Date Status SHINGARIX CVX: 121 03/23 completed Assessments Condition Codes Effectiv e Dates Other acute sinusitis ICD-10: J01.80 ICD-9: 461.8 09/02/2018 Other allergic rhinitis ICD-10: J30. 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 ICD-9: V58.69 [...] (3rd IS) 0.43 uIU/mL 09/02/2018 Comp Metabolic Ugr323 NA 136 mEq/L 09/02/2018 Comp Metabolic Jbi784 K 4.1 mEq/L 09/02/2018 Comp Metabolic Plv897 CL 103 mEq/L 09/02/2018 Comp Metabolic Dky424 CO2 20.0 mEq/L 09/02/2018 Comp Metabolic Dmk823 AN ION GAP 17 09/02/2018 Comp Metabolic Uba039 GL UCOSE 124 mg/dL 09/02/2018 Comp Metabolic Frz680 Cr eat 1.0 mg/dL 09/02/2018 Comp Metabolic Cep780 eG FR 57 ml/min/1.73m2 09/02 Comp Metabolic Egx491 BUN 24 mg/dL 09/02/2018 Comp Metabolic Gii216 B/ C Ratio 23.8 Ratio 09/02/2018 Comp Metabolic Npk294 CA LCIUM 9.5 mg/dL 09/02/2018 Comp Metabolic Qyx193 AL K PHOS 64 U/L 09/02/2018 Comp Metabolic Ecm102 T(SGOT) 24 U/L 09/02/2018 Comp Metabolic Qhq083 AL T(SGPT) 23 U/L 09/02/2018 Comp Metabolic Dxa284 BI LI T 0.5 mg/dL 09/02/2018 Comp Metabolic Ney964 AL BUMIN 4.2 g/dL 09/02/2018 Comp Metabolic Pup890 TP RO 7.4 g/dL 09/02/2018 Comp Metabolic Aye049 GL OB 3.2 g/dL 09/02/2018 Comp Metabolic Fpk554 A/ G Ratio 1.3 Ratio 09/02/2018 Comp Metabolic Uqa062 Os mo 277 mOsmo 09/02/2018 Pt Hny9429 PT 40.6 seconds 09/02/2018 Pt Wsy8412 INR 4.2 09/02/2018 Pt Jlw7303 Low Intensity - 1.5-2.0 09/02/2018 Pt Kkr8713 Mod intensity - 2.0-3.0 09/02/2018 Pt Dcq8386 Hi intensity - 3.0-4.0 09/02/2018 Free T4 Abz517 FREE T4 1.51 ng/dL 09/02/2018 Magnesium Ord90 Mag 1.8 mg/dL 09/02/2018 Pt Pap1073 PT 29.2 seconds 08/05/2018 Pt Lur3147 INR 2.8 08/05/2018 Pt Uwl0157 Low Intensity - 1.5-2.0 08/05/2018 Pt Hzg1094 Mod intensity - 2.0-3.0 08/05/2018 Pt Uvb6849 Hi intensity - 3.0-4.0 08/05/2018 Pt Sly6116 PT 30.2 seconds 07/25/2018 Pt Inq2712 INR 2.9 07/25/2018 Pt Gkm3237 Low Intensity - 1.5-2.0 07/25/2018 Pt Hbj1503 Mod intensity - 2.0-3.0 07/25/2018 Pt Oqz4344 Hi intensity - 3.0-4.0 07/25/2018 Pt Fjm0074 PT 25.2 seconds 07/19/2018 Pt Bxp8438 INR 2.3 07/19/2018 Pt Vrn8300 Low Intensity - 1.5-2.0 07/19/2018 Pt Cwb7581 Mod intensity - 2.0-3.0 07/19/2018 Pt Kah2168 Hi intensity - 3.0-4.0 07/19/2018 Pt Lyu6216 PT 17.4 seconds 07/15/2018 Pt Wfd1280 INR 1.5 07/15/2018 Pt Weh6975 Low Intensity - 1.5-2.0 07/15/2018 Pt Ukg7631 Mod intensity - 2.0-3.0 07/15/2018 Pt Ztu1746 Hi intensity - 3.0-4.0 07/15/2018 Pt Zgd5548 PT 17.8 seconds 07/08/2018 Pt Urq2739 INR 1.5 07/08/2018 Pt Vqt2931 Low Intensity - 1.5-2.0 07/08/2018 Pt Lpf8354 Mod intensity - 2.0-3.0 07/08/2018 Pt Ghs8413 Hi intensity - 3.0-4.0 07/08/2018 Pt Xxp1068 PT 19.2 seconds 07/01/2018 Pt Ure4722 INR 1.7 07/01/2018 Pt Kbm2036 Low Intensity - 1.5-2.0 07/01/2018 Pt Dal7773 Mod intensity - 2.0-3.0 07/01/2018 Pt Rqp1597 Hi intensity - 3.0-4.0 07/01/2018 Pt Vgs9348 PT 17.4 seconds 06/23/2018 Pt Unl6136 INR 1.5 06/23/2018 Pt Dpr5142 Low Intensity - 1.5-2.0 06/23/2018 Pt Xqc4334 Mod intensity - 2.0-3.0 06/23/2018 Pt Zey0024 Hi intensity - 3.0-4.0 06/23/2018 Pt Flj1344 PT 18.4 seconds 06/17/2018 Pt Hht7476 INR 1.6 06/17/2018 Pt Nlm6905 Low Intensity - 1.5-2.0 06/17/2018 Pt Rtn4979 Mod intensity - 2.0-3.0 06/17/2018 Pt Vtx2543 Hi intensity - 3.0-4.0 06/17/2018 Sed Rate [...] 30.4 pg 06/08/2018 Cbc With Differential Ord2 Toombs% 9.4 % 06/08/2018 Cbc With Differential Ord2 [...] 1.20 K/ul 06/08/2018 Cbc With Differential Ord2 [place] ABS# 0.5 K/ul 06/08/2018 Cbc With Differential Ord2 Eos ABS# 0.1 K/ul 06/08/2018 Cbc With Differential Ord2 Baso ABS# 0.1 K/ul 06/08/2018 C-Reactive Protein Qnt Crqnt CRP 0.1 mg/dl 06/08/2018 Pt Drm1785 PT 17.6 seconds 06/08/2018 Pt Nlq2825 INR 1.5 06/08/2018 Pt Zpz2579 Low Intensity - 1.5-2.0 06/08/2018 Pt Haw2631 Mod intensity - 2.0-3.0 06/08/2018 Pt Lqa2073 Hi intensity - 3.0-4.0 06/08/2018 Pt Rjd8469 PT 16.8 seconds 05/10/2018 Pt Iny4542 INR 1.4 05/10/2018 Pt Qyh0139 Low Intensity - 1.5-2.0 05/10/2018 Pt Qkv8253 Mod intensity - 2.0-3.0 05/10/2018 Pt Ssn1066 Hi intensity - 3.0-4.0 05/10/2018 Pt Zwr2966 PT 16.7 seconds 05/04/2018 Pt Xff8657 INR 1.4 05/04/2018 Pt Tjf7727 Low Intensity - 1.5-2.0 05/04/2018 Pt Pkh6021 Mod intensity - 2.0-3.0 05/04/2018 Pt Yck0608 Hi intensity - 3.0-4.0 05/04/2018 Free T4 Nth069 FREE T4 1.09 ng/dL 04/14/2018 Tsh Ord6 TSH (3rd IS) 2.36 uIU/mL 04/14/2018 Pt Xcr1256 PT 20.3 seconds 04/14/2018 Pt Zry3193 INR 1.8 04/14/2018 Pt Ywj3450 Low Intensity - 1.5-2.0 04/14/2018 Pt Jeu7721 Mod intensity - 2.0-3.0 04/14/2018 Pt Fxy4297 Hi intensity - 3.0-4.0 04/14/2018 Lipid Ord30 CHOL 149 mg/dL 04/14/2018 Lipid Ord30 HDL 49.0 mg/dl 04/14/2018 Lipid Ord30 TRIG 161 mg/dL 04/14/2018 Lipid Ord30 LDL 68 mg/dL 04/14/2018 Lipid Ord30 C/HDL 3.0 Ratio 04/14/2018 %Hba1C Ivk991 % HbA1c 54656-7 5.9 % 04/14/2018 %Hba1C Kad675 Gluc Ave 123 mg/dL 04/14/2018 Comp Metabolic Qxg063 NA 140 mEq/L 04/14/2018 Comp Metabolic Gxh488 K 4.1 mEq/L 04/14/2018 Comp Metabolic Xwd246 CL 105 mEq/L 04/14/2018 Comp Metabolic Geg427 CO2 28.0 mEq/L 04/14/2018 Comp Metabolic Yqb409 AN ION GAP 11 04/14/2018 Comp Metabolic Iqq078 GL UCOSE 112 mg/dL 04/14/2018 Comp Metabolic Bws852 Cr eat 1.0 mg/dL 04/14/2018 Comp Metabolic Kcf230 eG FR 58 ml/min/1.73m2 04/14 Comp Metabolic Khz900 BUN 20 mg/dL 04/14/2018 Comp Metabolic Dyh352 B/ C Ratio 20.2 Ratio 04/14/2018 Comp Metabolic Opk823 CA LCIUM 10.0 mg/dL 04/14/2018 Comp Metabolic Mda088 AL K PHOS 51 U/L 04/14/2018 Comp Metabolic Lcf883 T(SGOT) 24 U/L 04/14/2018 Comp Metabolic Ijn722 AL T(SGPT) 21 U/L 04/14/2018 Comp Metabolic Vhc095 BI LI T 0.8 mg/dL 04/14/2018 Comp Metabolic Wbc125 AL BUMIN 4.2 g/dL 04/14/2018 Comp Metabolic Spe717 TP RO 7.1 g/dL 04/14/2018 Comp Metabolic Jly420 GL OB 2.9 g/dL 04/14/2018 Comp Metabolic Zdh145 A/ G Ratio 1.5 Ratio 04/14/2018 Comp Metabolic Haj678 Os mo 283 mOsmo 04/14/2018 Cbc With [...] 30.7 pg 04/14/2018 Cbc With Differential Ord2 [place]ombs% 10.6 % 04/14/2018 Cbc With Differential Ord2 [...] 1.18 K/ul 04/14/2018 Cbc With Differential Ord2 [place] ABS# 0.5 K/ul 04/14/2018 Cbc With Differential Ord2 Eos ABS# 0.2 K/ul 04/14/2018 Cbc With Differential Ord2 Baso ABS# 0.1 K/ul 04/14/2018 Pt Mpy3353 PT 29.3 seconds 02/11/2018 Pt Arx5009 INR 2.8 02/11/2018 Pt Xmo4645 Low Intensity - 1.5-2.0 02/11/2018 Pt Hsj4026 Mod intensity - 2.0-3.0 02/11/2018 Pt Xxd8684 Hi intensity - 3.0-4.0 02/11/2018 Comp Metabolic Yko472 NA 141 mEq/L 01/05/2018 Comp Metabolic Bik057 K 3.7 mEq/L 01/05/2018 Comp Metabolic Phc338 CL 102 mEq/L 01/05/2018 Comp Metabolic Bnc061 CO2 29.0 mEq/L 01/05/2018 Comp Metabolic Zbs540 AN ION GAP 14 01/05/2018 Comp Metabolic Vgy452 GL UCOSE 136 mg/dL 01/05/2018 Comp Metabolic Bbw279 Cr eat 1.0 mg/dL 01/05/2018 Comp Metabolic Yej951 eG FR 61 ml/min/1.73m2 01/05 Comp Metabolic Ine275 BUN 22 mg/dL 01/05/2018 Comp Metabolic Hcy758 B/ C Ratio 22.9 Ratio 01/05/2018 Comp Metabolic Ivd926 CA LCIUM 9.7 mg/dL 01/05/2018 Comp Metabolic Ktz257 AL K PHOS 57 U/L 01/05/2018 Comp Metabolic Wtv511 T(SGOT) 21 U/L 01/05/2018 Comp Metabolic Dgq135 AL T(SGPT) 19 U/L 01/05/2018 Comp Metabolic Lqs837 BI LI T 0.9 mg/dL 01/05/2018 Comp Metabolic Xnu568 AL BUMIN 4.1 g/dL 01/05/2018 Comp Metabolic Scl534 TP RO 7.1 g/dL 01/05/2018 Comp Metabolic Cxl188 GL OB 3.0 g/dL 01/05/2018 Comp Metabolic Ebz592 A/ G Ratio 1.4 Ratio 01/05/2018 Comp Metabolic Uov333 Os mo 287 mOsmo 01/05/2018 Free T4 Our293 FREE T4 1.05 ng/dL 01/05/2018 %Hba1C Paz502 % HbA1c 84002-8 6.0 % 01/05/2018 %Hba1C Xhs961 Gluc Ave 126 mg/dL 01/05/2018 Cbc With [...] 30.6 pg 01/05/2018 Cbc With Differential Ord2 [place]ombs% 10.5 % 01/05/2018 Cbc With Differential Ord2 [...] 1.27 K/ul 01/05/2018 Cbc With Differential Ord2 [place] ABS# 0.5 K/ul 01/05/2018 Cbc With Differential Ord2 Eos ABS# 0.2 K/ul 01/05/2018 Cbc With Differential Ord2 Baso ABS# 0.1 K/ul 01/05/2018 Pt Tcx8446 PT 20.7 seconds 01/05/2018 Pt Ixc1484 INR 1.8 01/05/2018 Pt Ymh7665 Low Intensity - 1.5-2.0 01/05/2018 Pt Kzm1674 Mod intensity - 2.0-3.0 01/05/2018 Pt Sem9658 Hi intensity - 3.0-4.0 01/05/2018 Tsh Ord6 TSH (3rd IS) 2.34 uIU/mL 01/05/2018 Lipid Ord30 CHOL 156 mg/dL 01/05/2018 Lipid Ord30 HDL 48.0 mg/dl 01/05/2018 Lipid Ord30 TRIG 207 mg/dL 01/05/2018 Lipid Ord30 LDL 67 mg/dL 01/05/2018 Lipid Ord30 C/HDL 3.3 Ratio 01/05/2018 Pt Nzi7529 PT 28.3 seconds 11/26/2017 Pt Thy5134 INR 2.6 11/26/2017 Pt Cru3387 Low Intensity - 1.5-2.0 11/26/2017 Pt Xpq3666 Mod intensity - 2.0-3.0 11/26/2017 Pt Ace3293 Hi intensity - 3.0-4.0 11/26/2017 Pt Gek3132 PT 36.5 seconds 11/19/2017 Pt Dwf6534 INR 3.6 11/19/2017 Pt Pzu5217 Low Intensity - 1.5-2.0 11/19/2017 Pt Aga8237 Mod intensity - 2.0-3.0 11/19/2017 Pt Hqp0990 Hi intensity - 3.0-4.0 11/19/2017 Pt Hhb7181 PT 22.9 seconds 10/15/2017 Pt Bgy6477 INR 2.0 10/15/2017 Pt Lkb7244 Low Intensity - 1.5-2.0 10/15/2017 Pt Aqv7439 Mod intensity - 2.0-3.0 10/15/2017 Pt Qjl5249 Hi intensity - 3.0-4.0 10/15/2017 Pt Xhz7469 PT 25.9 seconds 10/01/2017 Pt Bfe9481 INR 2.4 10/01/2017 Pt Wce1271 Low Intensity - 1.5-2.0 10/01/2017 Pt Fps6249 Mod intensity - 2.0-3.0 10/01/2017 Pt Bxi6427 Hi intensity - 3.0-4.0 10/01/2017 Pt Gjs3208 PT 20.6 seconds 09/24/2017 Pt Ohp5104 INR 1.8 09/24/2017 Pt Dmd3339 Low Intensity - 1.5-2.0 09/24/2017 Pt Rrz3140 Mod intensity - 2.0-3.0 09/24/2017 Pt Bik4209 Hi intensity - 3.0-4.0 09/24/2017 Pt Jsa1408 PT 21.0 seconds 09/15/2017 Pt Gmy2414 INR 1.8 09/15/2017 Pt Xwh9875 Low Intensity - 1.5-2.0 09/15/2017 Pt Isj8746 Mod intensity - 2.0-3.0 09/15/2017 Pt Iea8632 Hi intensity - 3.0-4.0 09/15/2017 Pt Obk7538 PT 19.0 seconds 09/03/2017 Pt Xgn2105 INR 1.6 09/03/2017 Pt Ssx1315 Low Intensity - 1.5-2.0 09/03/2017 Pt Yuv2176 Mod intensity - 2.0-3.0 09/03/2017 Pt Zkg1302 Hi intensity - 3.0-4.0 09/03/2017 Pt Yzc6787 PT 17.6 seconds 08/23/2017 Pt Cuo3573 INR 1.5 08/23/2017 Pt Ouc4169 Low Intensity - 1.5-2.0 08/23/2017 Pt Obv5844 Mod intensity - 2.0-3.0 08/23/2017 Pt Qex8814 Hi intensity - 3.0-4.0 08/23/2017 Pt Qec9745 PT 12.7 seconds 08/20/2017 Pt Lzl3229 INR 1.0 08/20/2017 Pt Slh0471 Low Intensity - 1.5-2.0 08/20/2017 Pt Fxd2201 Mod intensity - 2.0-3.0 08/20/2017 Pt Fgw2543 Hi intensity - 3.0-4.0 08/20/2017 Pt Sqo7713 PT 12.9 seconds 08/17/2017 Pt Qrx1692 INR 1.0 08/17/2017 Pt Gyg8609 Low Intensity - 1.5-2.0 08/17/2017 Pt Wsx6852 Mod intensity - 2.0-3.0 08/17/2017 Pt Kah3803 Hi intensity - 3.0-4.0 08/17/2017 Pt Bga3723 PT 18.5 seconds 08/10/2017 Pt Nht1886 INR 1.6 08/10/2017 Pt Umz9881 Low Intensity - 1.5-2.0 08/10/2017 Pt Iff0971 Mod intensity - 2.0-3.0 08/10/2017 Pt Hdc6967 Hi intensity - 3.0-4.0 08/10/2017 Tsh Ord6 [...] 29.3 pg 05/27/2017 Cbc With Differential Ord2 [place]ombs% 8.1 % 05/27/2017 Cbc With Differential Ord2 [...] 1.11 K/ul 05/27/2017 Cbc With Differential Ord2 [place] ABS# 0.6 K/ul 05/27/2017 Cbc With Differential Ord2 Eos ABS# 0.2 K/ul 05/27/2017 Cbc With Differential Ord2 Baso ABS# 0.1 K/ul 05/27/2017 Pt Eiv3328 PT 28.2 seconds 05/27/2017 Pt Pov6751 INR 2.6 05/27/2017 Pt Twj3987 Low Intensity - 1.5-2.0 05/27/2017 Pt Icf3823 Mod intensity - 2.0-3.0 05/27/2017 Pt Odz6782 Hi intensity - 3.0-4.0 05/27/2017 Lipid Ord30 CHOL 167 mg/dL 05/27/2017 Lipid Ord30 HDL 49.0 mg/dl 05/27/2017 Lipid Ord30 TRIG 347 mg/dL 05/27/2017 Lipid Ord30 LDL 49 mg/dL 05/27/2017 Lipid Ord30 C/HDL 3.4 Ratio 05/27/2017 Magnesium Ord90 Mag 1.4 mg/dL 05/27/2017 %Hba1C Gze800 % HbA1c 52857-2 5.9 % 05/27/2017 %Hba1C Jwj920 Gluc Ave 123 mg/dL 05/27/2017 Comp Metabolic Oqk502 NA 138 mEq/L 05/27/2017 Comp Metabolic Wqq441 K 4.1 mEq/L 05/27/2017 Comp Metabolic Pyk468 CL 101 mEq/L 05/27/2017 Comp Metabolic Iro598 CO2 31.0 mEq/L 05/27/2017 Comp Metabolic Rvv558 AN ION GAP 10 05/27/2017 Comp Metabolic Odv476 GL UCOSE 117 mg/dL 05/27/2017 Comp Metabolic Tcj402 Cr eat 0.9 mg/dL 05/27/2017 Comp Metabolic Mwh888 eG FR 62 ml/min/1.73m2 05/27 Comp Metabolic Yij026 BUN 25 mg/dL 05/27/2017 Comp Metabolic Qri056 B/ C Ratio 26.6 Ratio 05/27/2017 Comp Metabolic Izw863 CA LCIUM 9.5 mg/dL 05/27/2017 Comp Metabolic Sqj396 AL K PHOS 73 U/L 05/27/2017 Comp Metabolic Nlj171 T(SGOT) 18 U/L 05/27/2017 Comp Metabolic Hmg481 AL T(SGPT) 12 U/L 05/27/2017 Comp Metabolic Tnp298 BI LI T 0.5 mg/dL 05/27/2017 Comp Metabolic Bdj825 AL BUMIN 4.1 g/dL 05/27/2017 Comp Metabolic Kua469 TP RO 7.1 g/dL 05/27/2017 Comp Metabolic Dft999 GL OB 3.0 g/dL 05/27/2017 Comp Metabolic Bho306 A/ G Ratio 1.3 Ratio 05/27/2017 Comp Metabolic Zwd111 Os mo 281 mOsmo 05/27/2017 Free T4 Rac624 FREE T4 0.91 ng/dL 05/27/2017 Pt Okh9175 PT 29.2 seconds 04/16/2017 Pt Fgq4647 INR 2.7 04/16/2017 Pt Yvh0334 Low Intensity - 1.5-2.0 04/16/2017 Pt Nje6021 Mod intensity - 2.0-3.0 04/16/2017 Pt Chd3148 Hi intensity - 3.0-4.0 04/16/2017 Pt Hsa1811 PT 30.7 seconds 03/31/2017 Pt Jgq4188 INR 2.9 03/31/2017 Pt Bww9424 Low Intensity - 1.5-2.0 03/31/2017 Pt Kin3798 Mod intensity - 2.0-3.0 03/31/2017 Pt Clx9922 Hi intensity - 3.0-4.0 03/31/2017 Pt Tkl9293 PT 21.3 seconds 03/26/2017 Pt Rhf9049 INR 1.9 03/26/2017 Pt Xgg4079 Low Intensity - 1.5-2.0 03/26/2017 Pt Qeg0338 Mod intensity - 2.0-3.0 03/26/2017 Pt Xfh8433 Hi intensity - 3.0-4.0 03/26/2017 Pt Upf4487 PT 19.8 seconds 03/22/2017 Pt Paf1457 INR 1.7 03/22/2017 Pt Bqw7004 Low Intensity - 1.5-2.0 03/22/2017 Pt Abm2122 Mod intensity - 2.0-3.0 03/22/2017 Pt Gks7968 Hi intensity - 3.0-4.0 03/22/2017 Pt Mab4357 PT 15.6 seconds 03/19/2017 Pt Ujr4165 INR 1.3 03/19/2017 Pt Cfu2644 Low Intensity - 1.5-2.0 03/19/2017 Pt Sis8603 Mod intensity - 2.0-3.0 03/19/2017 Pt Yir1230 Hi intensity - 3.0-4.0 03/19/2017 Pt Pxy7674 PT 13.7 seconds 03/15/2017 Pt Lcq4222 INR 1.1 03/15/2017 Pt Tad7475 Low Intensity - 1.5-2.0 03/15/2017 Pt Gig0448 Mod intensity - 2.0-3.0 03/15/2017 Pt Rrl7149 Hi intensity - 3.0-4.0 03/15/2017 Pt Rcx2078 PT 25.8 seconds 01/28/2017 Pt Npf8459 INR 2.4 01/28/2017 Pt Vet1290 Low Intensity - 1.5-2.0 01/28/2017 Pt Bsn5765 Mod intensity - 2.0-3.0 01/28/2017 Pt Ehs6571 Hi intensity - 3.0-4.0 01/28/2017 %Hba1C Ghf639 % HbA1c 14816-4 6.4 % 10/23/2016 %Hba1C Kpa888 Gluc Ave 137 mg/dL 10/23/2016 Comp Metabolic Irr182 NA 138 mEq/L 10/23/2016 Comp Metabolic Xjf561 K 3.4 mEq/L 10/23/2016 Comp Metabolic Mxp262 CL 100 mEq/L 10/23/2016 Comp Metabolic Ttx915 CO2 30.0 mEq/L 10/23/2016 Comp Metabolic Mfx412 AN ION GAP 11 10/23/2016 Comp Metabolic Nar017 GL UCOSE 139 mg/dL 10/23/2016 Comp Metabolic Ecx306 Cr eat 0.9 mg/dL 10/23/2016 Comp Metabolic Kso637 eG FR 62 ml/min/1.73m2 10/23 Comp Metabolic Tlc157 BUN 22 mg/dL 10/23/2016 Comp Metabolic Nhq071 B/ C Ratio 23.4 Ratio 10/23/2016 Comp Metabolic Jaz926 CA LCIUM 8.7 mg/dL 10/23/2016 Comp Metabolic Ylo863 AL K PHOS 66 U/L 10/23/2016 Comp Metabolic Yws627 T(SGOT) 20 U/L 10/23/2016 Comp Metabolic Vym410 AL T(SGPT) 10 U/L 10/23/2016 Comp Metabolic Ige680 BI LI T 0.5 mg/dL 10/23/2016 Comp Metabolic Vgq935 AL BUMIN 3.5 g/dL 10/23/2016 Comp Metabolic Uzn921 TP RO 6.3 g/dL 10/23/2016 Comp Metabolic Kjm899 GL OB 2.8 g/dL 10/23/2016 Comp Metabolic Yju402 A/ G Ratio 1.3 Ratio 10/23/2016 Comp Metabolic Mpt854 Os mo 281 mOsmo 10/23/2016 Pt Qry9197 PT 26.8 seconds 10/23/2016 Pt Csi2794 INR 2.7 10/23/2016 Pt Jsw8746 Low Intensity - 1.5-2.0 10/23/2016 Pt Aus2022 Mod intensity - 2.0-3.0 10/23/2016 Pt Oob0859 Hi intensity - 3.0-4.0 10/23/2016 Pt Okf9104 PT 28.3 seconds 09/25/2016 Pt Raf4308 INR 2.8 09/25/2016 Pt Dto7494 Low Intensity - 1.5-2.0 09/25/2016 Pt Etk7096 Mod intensity - 2.0-3.0 09/25/2016 Pt Vxv9894 Hi intensity - 3.0-4.0 09/25/2016 Metabolic Ord15 [...] Metabolic Ord15 CALCIUM 8.8 mg/dL 09/25/2016 Pt Urr5118 PT 30.6 seconds 09/11/2016 Pt Yzx0945 INR 3.2 09/11/2016 Pt Lhd9099 Low Intensity - 1.5-2.0 09/11/2016 Pt Uoo1131 Mod intensity - 2.0-3.0 09/11/2016 Pt Jas6746 Hi intensity - 3.0-4.0 09/11/2016 Comp Metabolic Mqb836 NA 138 mEq/L 09/11/2016 Comp Metabolic Uta662 K 4.4 mEq/L 09/11/2016 Comp Metabolic Kdk060 CL 103 mEq/L 09/11/2016 Comp Metabolic Jwe275 CO2 31.0 mEq/L 09/11/2016 Comp Metabolic Awm893 AN ION GAP 8 09/11/2016 Comp Metabolic Nrc578 GL UCOSE 146 mg/dL 09/11/2016 Comp Metabolic Esf035 Cr eat 1.0 mg/dL 09/11/2016 Comp Metabolic Owm791 eG FR 60 ml/min/1.73m2 09/11 Comp Metabolic Efn251 BUN 16 mg/dL 09/11/2016 Comp Metabolic Bnv917 B/ C Ratio 16.5 Ratio 09/11/2016 Comp Metabolic Mdj288 CA LCIUM 8.7 mg/dL 09/11/2016 Comp Metabolic Bqq597 AL K PHOS 52 U/L 09/11/2016 Comp Metabolic Ccl568 T(SGOT) 19 U/L 09/11/2016 Comp Metabolic Len794 AL T(SGPT) 11 U/L 09/11/2016 Comp Metabolic Wmr202 BI LI T 0.7 mg/dL 09/11/2016 Comp Metabolic Esh817 AL BUMIN 3.3 g/dL 09/11/2016 Comp Metabolic Wsm698 TP RO 5.8 g/dL 09/11/2016 Comp Metabolic Cht323 GL OB 2.5 g/dL 09/11/2016 Comp Metabolic Gum868 A/ G Ratio 1.3 Ratio 09/11/2016 Comp Metabolic Gcv441 Os mo 280 mOsmo 09/11/2016 C-Reactive Protein Qnt Crqnt CRP 0.1 mg/dl 08/21/2016 Comp Metabolic Yde115 NA 139 mEq/L 08/21/2016 Comp Metabolic Agk157 K 4.1 mEq/L 08/21/2016 Comp Metabolic Fcg246 CL 102 mEq/L 08/21/2016 Comp Metabolic Wyg249 CO2 30.0 mEq/L 08/21/2016 Comp Metabolic Orq012 AN ION GAP 11 08/21/2016 Comp Metabolic Cat581 GL UCOSE 148 mg/dL 08/21/2016 Comp Metabolic Cny595 Cr eat 1.0 mg/dL 08/21/2016 Comp Metabolic Ean123 eG FR 55 ml/min/1.73m2 08/21 Comp Metabolic Djt641 BUN 21 mg/dL 08/21/2016 Comp Metabolic Rwu618 B/ C Ratio 20.2 Ratio 08/21/2016 Comp Metabolic Clw886 CA LCIUM 9.4 mg/dL 08/21/2016 Comp Metabolic Lql538 AL K PHOS 63 U/L 08/21/2016 Comp Metabolic Pxz167 T(SGOT) 23 U/L 08/21/2016 Comp Metabolic Csx048 AL T(SGPT) 16 U/L 08/21/2016 Comp Metabolic Pwj271 BI LI T 0.6 mg/dL 08/21/2016 Comp Metabolic Ioc860 AL BUMIN 3.9 g/dL 08/21/2016 Comp Metabolic Xiv856 TP RO 6.8 g/dL 08/21/2016 Comp Metabolic Abr557 GL OB 2.9 g/dL 08/21/2016 Comp Metabolic Xjc957 A/ G Ratio 1.4 Ratio 08/21/2016 Comp Metabolic Unn857 Os mo 283 mOsmo 08/21/2016 Sed Rate Ord21 ESR 16 mm/hr 08/21/2016 Pt Cmu4294 PT 27.2 seconds 08/21/2016 Pt Guq6456 INR 2.7 08/21/2016 Pt Guf4494 Low Intensity - 1.5-2.0 08/21/2016 Pt Cvn1439 Mod intensity - 2.0-3.0 08/21/2016 Pt Cif4764 Hi intensity - 3.0-4.0 08/21/2016 Magnesium Ord90 Mag 1.9 mg/dL 08/21/2016 Pt Egr5195 PT 25.9 seconds 06/17/2016 Pt Rto0847 INR 2.5 06/17/2016 Pt Dth0666 Low Intensity - 1.5-2.0 06/17/2016 Pt Jhn9788 Mod intensity - 2.0-3.0 06/17/2016 Pt Cni2100 Hi intensity - 3.0-4.0 06/17/2016 Tsh Ord6 hTSH II 2.13 uIU/mL 06/08/2016 Free T4 Sod259 FREE T4 0.79 ng/dL 06/08/2016 Cbc With [...] 26.8 pg 06/08/2016 Cbc With Differential Ord2 [place]ombs% 12.0 % 06/08/2016 Cbc With Differential Ord2 [...] 1.40 K/ul 06/08/2016 Cbc With Differential Ord2 [place] ABS# 0.7 K/ul 06/08/2016 Cbc With Differential Ord2 Eos ABS# 0.3 K/ul 06/08/2016 Cbc With Differential Ord2 Baso ABS# 0.1 K/ul 06/08/2016 %Hba1C Qvt413 % HbA1c 74481-8 6.2 % 06/08/2016 %Hba1C Acm054 Gluc Ave 131 mg/dL 06/08/2016 Comp Metabolic Dzp463 NA 138 mEq/L 06/08/2016 Comp Metabolic Exe638 K 3.9 mEq/L 06/08/2016 Comp Metabolic Wpo008 CL 105 mEq/L 06/08/2016 Comp Metabolic Xgn853 CO2 27.0 mEq/L 06/08/2016 Comp Metabolic Ofy157 AN ION GAP 10 06/08/2016 Comp Metabolic Jua439 GL UCOSE 127 mg/dL 06/08/2016 Comp Metabolic Ozi090 Cr eat 1.0 mg/dL 06/08/2016 Comp Metabolic Job964 eG FR 59 ml/min/1.73m2 06/08 Comp Metabolic Waw422 BUN 19 mg/dL 06/08/2016 Comp Metabolic Yvl368 B/ C Ratio 19.4 Ratio 06/08/2016 Comp Metabolic Fat106 CA LCIUM 9.2 mg/dL 06/08/2016 Comp Metabolic Get672 AL K PHOS 77 U/L 06/08/2016 Comp Metabolic Ebv366 T(SGOT) 19 U/L 06/08/2016 Comp Metabolic Vaj499 AL T(SGPT) 13 U/L 06/08/2016 Comp Metabolic Avo694 BI LI T 0.5 mg/dL 06/08/2016 Comp Metabolic Jnf087 AL BUMIN 3.8 g/dL 06/08/2016 Comp Metabolic Pir679 TP RO 6.6 g/dL 06/08/2016 Comp Metabolic Gjo091 GL OB 2.8 g/dL 06/08/2016 Comp Metabolic Eki675 A/ G Ratio 1.4 Ratio 06/08/2016 Comp Metabolic Flm886 Os mo 280 mOsmo 06/08/2016 Pt Ocw4427 PT 36.1 seconds 06/08/2016 Pt Idm2477 INR 3.9 06/08/2016 Pt Bed5345 Low Intensity - 1.5-2.0 06/08/2016 Pt Gxp0323 Mod intensity - 2.0-3.0 06/08/2016 Pt Nal0490 Hi intensity - 3.0-4.0 06/08/2016 Lipid Ord30 CHOL 149 mg/dL 06/08/2016 Lipid Ord30 HDL 46.0 mg/dl 06/08/2016 Lipid Ord30 TRIG 279 mg/dL 06/08/2016 Lipid Ord30 LDL 47 mg/dL 06/08/2016 Lipid Ord30 C/HDL 3.2 Ratio 06/08/2016 Pt Sol9605 PT 30.9 seconds 02/12/2016 Pt Orq9184 INR 3.2 02/12/2016 Pt Que9001 Low Intensity - 1.5-2.0 02/12/2016 Pt Mvo1337 Mod intensity - 2.0-3.0 02/12/2016 Pt Oqm1563 Hi intensity - 3.0-4.0 02/12/2016 Free T4 Peq445 FREE T4 1.24 ng/dL 09/27/2015 %Hba1C Ddv186 % HbA1c 96473-2 6.4 % 09/27/2015 %Hba1C Kca085 Gluc Ave 137 mg/dL 09/27/2015 Tsh Ord6 hTSH II 0.37 uIU/mL 09/27/2015 Pt Rgw2227 PT 26.2 seconds 09/27/2015 Pt Oig7292 INR 2.5 09/27/2015 Pt Ake9083 Low Intensity - 1.5-2.0 09/27/2015 Pt Mjc4312 Mod intensity - 2.0-3.0 09/27/2015 Pt Ojp1706 Hi intensity - 3.0-4.0 09/27/2015 Pt Vfu7460 PT 27.6 seconds 2015 Pt Wtd5489 INR 2.[address] Low Intensity - 1.5-2.0 2015 Pt Pju7425 Mod intensity - 2.0-3.0 2015 Pt Akj3978 Hi intensity - 3.0-4.0 2015 %Hba1C Wro099 % HbA1c 03310-5 6.1 % 06/11/2015 %Hba1C Hun182 Gluc Ave 128 mg/dL 06/11/2015 Cbc With [...] Ord2 RDW 15.8 % 06/10/2015 Comp Metabolic Ors093 NA 139 mEq/L 06/10/2015 Comp Metabolic Xnz228 K 4.1 mEq/L 06/10/2015 Comp Metabolic Bcr846 CL 105 mEq/L 06/10/2015 Comp Metabolic Vdi730 CO2 27.0 mEq/L 06/10/2015 Comp Metabolic Mtd956 AN ION GAP 11 06/10/2015 Comp Metabolic Bpq348 GL UCOSE 127 mg/dL 06/10/2015 Comp Metabolic Uds327 Cr eat 1.0 mg/dL 06/10/2015 Comp Metabolic Qas365 eG FR 59 ml/min/1.73m2 06/10 Comp Metabolic Tlj046 BUN 21 mg/dL 06/10/2015 Comp Metabolic Efb085 B/ C Ratio 21.2 Ratio 06/10/2015 Comp Metabolic Omb157 CA LCIUM 9.2 mg/dL 06/10/2015 Comp Metabolic Lyk426 AL K PHOS 87 U/L 06/10/2015 Comp Metabolic Jlm820 T(SGOT) 20 U/L 06/10/2015 Comp Metabolic Aqo875 AL T(SGPT) 17 U/L 06/10/2015 Comp Metabolic Pfp792 BI LI T 0.4 mg/dL 06/10/2015 Comp Metabolic Ozq035 AL BUMIN 4.1 g/dL 06/10/2015 Comp Metabolic Ujg253 TP RO 7.2 g/dL 06/10/2015 Comp Metabolic Ncc029 GL OB 3.1 g/dL 06/10/2015 Comp Metabolic Nbt212 A/ G Ratio 1.3 Ratio 06/10/2015 Comp Metabolic Zyx378 Os mo 282 mOsmo 06/10/2015 Tsh Ord6 hTSH II 0.86 uIU/mL 06/10/2015 Lipid Ord30 CHOL 161 mg/dL 06/10/2015 Lipid Ord30 HDL 49.0 mg/dl 06/10/2015 Lipid Ord30 TRIG 208 mg/dL 06/10/2015 Lipid Ord30 LDL 70 mg/dL 06/10/2015 Lipid Ord30 C/HDL 3.3 Ratio 06/10/2015 Pt Pru2635 PT 25.0 seconds 04/09/2015 Pt Nrh5969 INR 2.4 04/09/2015 Pt Kbr8276 Low Intensity - 1.5-2.0 04/09/2015 Pt Gsd0104 Mod intensity - 2.0-3.0 04/09/2015 Pt Dkd7934 Hi intensity - 3.0-4.0 04/09/2015 Free T4 Kyl888 FREE T4 1.05 ng/dL 01/22/2015 Pt Rml3328 PT 27.2 seconds 01/22/2015 Pt Roq2971 INR 2.6 01/22/2015 Pt Fzn9596 Low Intensity - 1.5-2.0 01/22/2015 Pt Dnt5690 Mod intensity - 2.0-3.0 01/22/2015 Pt Nld1366 Hi intensity - 3.0-4.0 01/22/2015 Cbc With [...] Differential Ord2 RDW 15.2 % 01/22/2015 B12 [id number] B12 402.00 pg/ml 01/22/2015 Tsh Ord6 hTSH II 0.65 uIU/mL 01/22/2015 Lipid Ord30 CHOL 166 mg/dL 01/22/2015 Lipid Ord30 HDL 48.0 mg/dl 01/22/2015 Lipid Ord30 TRIG 264 mg/dL 01/22/2015 Lipid Ord30 LDL 65 mg/dL 01/22/2015 Lipid Ord30 C/HDL 3.5 Ratio 01/22/2015 Comp Metabolic Wqn065 NA 138 mEq/L 01/22/2015 Comp Metabolic Tod976 K 4.1 mEq/L 01/22/2015 Comp Metabolic Ykb412 CL 104 mEq/L 01/22/2015 Comp Metabolic Oqb606 CO2 29.0 mEq/L 01/22/2015 Comp Metabolic Ilt948 AN ION GAP 9 01/22/2015 Comp Metabolic Nmr651 GL UCOSE 106 mg/dL 01/22/2015 Comp Metabolic Sxj688 Cr eat 0.9 mg/dL 01/22/2015 Comp Metabolic Jhw527 eG FR 63 ml/min/1.73m2 01/22 Comp Metabolic Zyt680 BUN 21 mg/dL 01/22/2015 Comp Metabolic Hga483 B/ C Ratio 22.3 Ratio 01/22/2015 Comp Metabolic Bnc941 CA LCIUM 9.4 mg/dL 01/22/2015 Comp Metabolic Axy658 AL K PHOS 83 U/L 01/22/2015 Comp Metabolic Tox818 T(SGOT) 23 U/L 01/22/2015 Comp Metabolic Hsm106 AL T(SGPT) 18 U/L 01/22/2015 Comp Metabolic Ocl498 BI LI T 0.8 mg/dL 01/22/2015 Comp Metabolic Pmm019 AL BUMIN 4.2 g/dL 01/22/2015 Comp Metabolic Lvg489 TP RO 7.3 g/dL 01/22/2015 Comp Metabolic Bso760 GL OB 3.1 g/dL 01/22/2015 Comp Metabolic Hyl224 A/ G Ratio 1.4 Ratio 01/22/2015 Comp Metabolic Zam327 Os mo 279 mOsmo 01/22/2015 Review of [...] Procedure Codes Date THER/PROPH/DIAG INJ SC/IM CPT-4: 55964 09/02/2018 TRIAMCINOLONE ACET I [place] NOS CPT-4: J3301 09/02/2018 URINALYSIS NONAUTO W /O SCOPE CPT-4: 85952 03/05/2017 Vital Signs Date Vital 09/02/2018 Blood Pressure 1: 128/72 Code: 8480-6 BMI: 38.2 Code: 24022-5 Heart Rate 1: 80 bpm Height: 5'1" SpO2: 98% Weight: 202 lbs 04/14/2018 Blood Pressure 1: 116/78 Code: 8480-6 BMI: 41.6 Code: 33921-2 Heart Rate 1: 72 bpm Height: 5'1" SpO2: 98% Weight: 220 lbs 01/18/2018 Blood Pressure 1: 132/74 Code: 8480-6 BMI: 43.5 Code: 61956-0 Heart Rate 1: 70 bpm Height: 5'1" SpO2: 97% Weight: 230 lbs 01/04/2018 Blood Pressure 1: 134/76 Code: 8480-6 BMI: 42.7 Code: 51245-0 Heart Rate 1: 83 bpm Height: 5'1" SpO2: 98% Weight: 226 lbs 09/23/2017 Blood Pressure 1: 124/76 Code: 8480-6 BMI: 42.3 Code: 21454-8 Heart Rate 1: 94 bpm Height: 5'1" SpO2: 96% Weight: 224 lbs 05/27/2017 Blood Pressure 1: 146/78 Code: 8480-6 BMI: 41.4 Code: 48586-4 Heart Rate 1: 85 bpm Height: 5'1" SpO2: 98% Weight: 219 lbs 02/24/2017 Blood Pressure 1: 138/66 Code: 8480-6 BMI: 41.4 Code: 02933-6 Heart Rate 1: 78 bpm Height: 5'1" SpO2: 97% Weight: 219 lbs 11/02/2016 Blood Pressure 1: 144/72 Code: 8480-6 BMI: 46.1 Code: 35136-5 Heart Rate 1: 78 bpm Height: 5'1" SpO2: 98% Weight: 244 lbs 09/30/2016 Blood Pressure 1: 130/76 Code: 8480-6 BMI: 45.0 Code: 96648-5 Heart Rate 1: 86 bpm Height: 5'1" SpO2: 98% Weight: 238 lbs 09/10/2016 Blood Pressure 1: 136/68 Code: 8480-6 BMI: 46.3 Code: 03565-4 Heart Rate 1: 83 bpm Height: 5'1" SpO2: 98% Weight: 245 lbs 08/20/2016 Blood Pressure 1: 142/78 Code: 8480-6 BMI: 45.3 Code: 92938-2 Heart Rate 1: 84 bpm Height: 5'1" SpO2: 99% Weight: 240 lbs 06/08/2016 Blood Pressure 1: 134/76 Code: 8480-6 BMI: 44.2 Code: 11976-3 Heart Rate 1: 86 bpm Height: 5'1" SpO2: 96% Weight: 234 lbs 04/02/2016 Blood Pressure 1: 142/70 Code: 8480-6 BMI: 44.6 Code: 86191-7 Heart Rate 1: 78 bpm Height: 5'1" SpO2: 97% Weight: 236 lbs 01/14/2016 Blood Pressure 1: 146/72 Code: 8480-6 BMI: 44.2 Code: 88740-3 Heart Rate 1: 86 bpm Height: 5'1" SpO2: 96% Weight: 234 lbs 10/02/2015 Blood Pressure 1: 158/76 Code: 8480-6 BMI: 44.2 Code: 78930-6 Heart Rate 1: 67 bpm Height: 5'1" SpO2: 97% Weight: 234 lbs 07/15/2015 Blood Pressure 1: 200/90 Code: 8480-6 Blood Pressure 1: 148/78 Code: 8480-6 BMI: 44.0 Code: 76288-1 Heart Rate 1: 89 bpm Height: 5'1" SpO2: 97% Weight: 233 lbs 06/10/2015 Blood Pressure 1: 140/82 Code: 8480-6 BMI: 44.0 Code: 30814-1 Heart Rate 1: 78 bpm Height: 5'1" [...] wearing crocs and there was a new jamaican on the floor: her foot didn't move [...] Encounters Encounter Performer Loca tion Codes Date [id number] EST. PATIENT, LEVEL IV Diagnosis: Other acute sinusitis[ICD10: J01.80] Diagnosis: Other allergic rhinitis[ICD10: J30.89] Nata Almanza MD, [facility] CPT-4: 34913 09/02/2018 ([id number]) 34388 EST. P ATIENT, LEVEL IV Diagnosis: Essential (primary) hypertension[ICD10: I10] Diagnosis: Hypothyroidism, unspecified[ICD10: E03.9] Diagnosis: Impaired fasting glucose[ICD10: R73.01] Diagnosis: residential (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[ICD10: Z79.01] Edna Almanza MD, [facility] CPT-4: 56910 04/14/2018 ([id number]) 77392 EST. P ATIENT, LEVEL III Diagnosis: Localized edema[ICD10: R60.0] Diagnosis: Gastro-esophageal reflux disease without esophagitis[ICD10: K21.9] Edna Almanza MD, [facility] CPT-4: 10826 01/18/2018 ([id number]) 51683 EST. P ATIENT, LEVEL IV Diagnosis: Gastro-esophageal reflux disease without esophagitis[ICD10: K21.9] Diagnosis: Localized edema[ICD10: R60.0] Diagnosis: Essential (primary) hypertension[ICD10: I10] Diagnosis: Hypothyroidism, unspecified[ICD10: E03.9] Diagnosis: Impaired fasting glucose[ICD10: R73.01] Edna Almanza MD, [facility] CPT-4: 70665 01/04/2018 ([id number]) 82137 EST. 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 PATIENT, LEVEL III Diagnosis: Pain in right hip[ICD10: M25.551] Nata Almanza MD, [facility] CPT-4: 87028 02/24/2017 ([id number]) 98280 EST. P ATIENT, LEVEL IV Diagnosis: Essential (primary) hypertension[ICD10: I10] Diagnosis: Localized edema[ICD10: R60.0] Diagnosis: Pain in right hip[ICD10: M25.551] Sarai Almanza MD, [facility] CPT-4: 69573 11/02/2016 ([id number]) 02088 EST. P ATIENT, LEVEL IV Diagnosis: Essential (primary) hypertension[ICD10: I10] Diagnosis: Localized edema[ICD10: R60.0] Sarai Almanza MD, [facility] CPT-4: 60178 09/30/2016 [id number] EST. PATIENT, LEVEL IV Diagnosis: Localized edema[ICD10: R60.0] Diagnosis: Pain in joints of left hand[ICD10: M25.542] Diagnosis: Pain in joints of right hand[ICD10: M25.541] Nata Almanza MD, [facility] CPT-4: 79650 09/10/2016 75590 EST. PATIENT, LEVEL IV Diagnosis: Localized edema[ICD10: R60.0] Diagnosis: Pain in joints of left hand[ICD10: M25.542] Diagnosis: Pain in joints of right hand[ICD10: M25.541] Diagnosis: Other fatigue[ICD10: R53.83] Nata Almanza MD, [facility] CPT-4: 95099 08/20/2016 49403 EST. PATIENT, LEVEL IV Diagnosis: Essential (primary) hypertension[ICD10: I10] Diagnosis: Other fpc (current) drug therapy[ICD10: Z79.899] Diagnosis: Tinnitus, bilateral[ICD10: H93.13] Nata Almanza MD, [facility] CPT-4: 66671 06/08/2016 79734 EST. PATIENT, LEVEL IV Diagnosis: Other allergic rhinitis[ICD10: J30.89] Diagnosis: Acute laryngopharyngitis[ICD10: J06.0] Nata Almanza MD, [facility] CPT-4: 92715 04/02/2016 45481 EST. PATIENT, LEVEL IV Diagnosis: Left upper quadrant pain[ICD10: R10.12] Nata Almanza MD, [facility] CPT-4: 68234 01/14/2016 82458 EST. PATIENT, LEVEL IV Diagnosis: Pain in left shoulder[ICD10: M25.512] Diagnosis: Body mass index (BMI) 40.0-44.9, adult[ICD10: Z68.41] Nata Almanza MD, [facility] CPT-4: 98982 10/02/2015 59015 EST. PATIENT, LEVEL IV Diagnosis: Pain in left leg[ICD10: M79.605] Diagnosis: Other fpc (current) drug therapy[ICD10: Z79.899] Nata Almanza MD, [facility] CPT-4: 60563 07/15/2015 ([id number]) 81362 EST. 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 09/02/2018 Appointment: Nata Hsu WPtel: [facility] (15 min) Moderate 09/02/2018 Patient Education: [...] A1C 04/14/2018 Appointment: Edna Douglas WPtel: [phone] [phone] (15 min) Moderate 04/14/2018 Patient Education: [...] to further attempt to reduce peripheral edema. INGK-pytakjmz-gqsxadfa prilosec BID and carafate QID -discussed low spice, low acidic diet 01/18/2018 Appointment: Edna Douglas WPtel: [phone] [place] (15 min) Moderate 01/18/2018 Patient Education: [...] control. 01/04/2018 Appointment: [phone] (30 min) Complex 01/04/2018 Patient Education: Patient Medication Summary Completed 01/04/2018 Care Plan: SCREENINGMAMMOGRAPHYDIGITAL LOINC : 35308-4 Pending 01/04/2018 Visit Plan: Abdominal hernia - not able to be taken to surgery by local providers and pt has been seen at [facility] and that surgeon felt like Kta would be better served by Dr. Betancur [...] home. 09/23/2017 App[facility]ment: [phone] [place] (15 min) Moderate 09/23/2017 [...] medications. 05/27/2017 Appointment: Edna Douglas WPtel: [phone] [phone] [place] (30 min) Complex 05/27/2017 Patient [...] Dr. Palacios. 02/24/2017 Appointment: [facility]su [facility]el[phone] [facility] [place] (30 min) Complex 02/24/2017 Patient Education: [...] dr. Chaney. 11/02/2016 Appointment: Sarai Almanza WPtel: [phone] [facility] (15 min) Moderate 11/02/2016 Patient Education: [...] peripheral edema. 09/30/2016 Appointment: Sarai Almanza WPtel: [facility] (15 min) Moderate 09/30/2016 [...] peripheral edema. 09/10/2016 Appointment: [facility]su [phone] (30 min) Complex 09/10/2016 Patient Education: Patient [...] edema. 08/20/2016 App[facility]ment: [phone] (30 min) Complex 08/20/2016 Patient Education: Patient Medication Summary Completed 08/20/2016 Referral: Rosa Ot[facility] Referral Initiated 07/02/2016 Visit Plan: Chronic [...] 06/08/2016 Care Plan: Referral Order SNOMED-CT : [id number] Pending 06/08/2016 Visit Plan: URI - Pt [...] spray. 04/02/2016 Appointment: [phone] (30 min) Complex 04/02/2016 Patient Education: Patient [...] Appointment: Edna Douglas WPtel: [facility]8 [phone] (30 min) Complex 01/14/2016 Patient Education: Patient Medication Summary Completed 01/14/2016 Patient Education: Obesity Completed 01/14/2016 Care Plan: BMI Above normal followup DAVID F-MGMT EDUC & TRAIN 1 PT Pending 10/24/2015 Care Plan: X-RAY EXAM OF SHOULDER LOINC : 00931-1 Pending 10/24/2015 Visit Plan: Left shoulder pain [...] Appointment: Edna Douglas WPtel: [phone] (15 min) Moderate 10/02/2015 Patient Education: Patient [...] Appointment: Sarai Almanza WPtel: [facility] (15 min) Moderate 04/22/2015 Visit [...] fixation - planning occurring at [facility]. Snoring - Sleep apnea symptoms with difficulty [...] to medications. 01/22/2015 Appointment: Sarai Almanza WPtel: [facility]3 [facility] [place] ([place]) New Patient 01/22/2015 Patient Education: Patient Medication Summary Completed 01/22/2015 Patient Education: Hypertension Completed 01/22/2015 [facility] [facility] Initiated Instructions Comment . right upper quadra nt pain - [...] to further attempt to reduce peripheral edema. HJTR-tkiqzdzs-tvrluzhu prilosec BID and carafate QID -discussed low [...] providers and pt has been seen at [facility] and that surgeon felt like Kat would be better served by Dr. Betancur at [facility]. I have recommended a referral [...] fixation - planning occurring at [facility]. Snoring - Sleep apnea symptoms with difficulty [...] for INR is between 2.0 and 3.5. Come in Wednesday to [facility] ve PT [...]
--- OUTSIDE RECORDS SUMMARY | 2020-01-16 23:17 | XMS REPORT | CCD ---
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 Name Role Phone PP Unavailable CCM Unavailable Summary Purpose Interface Exchange Insurance Providers Payer name Policy type / Coverage type Covered constitution party ID Effective Begin Date Effective End Date WPS Medicare Part B Medicare Part B [id number] 2017 Unknown [employer] [place] Medicare Part B [id number] 2017 Unknown Family history Father Diagnosis Age At Onset Hyperlipidemia Unknown Heart Attack Unknown Mother Diagnosis Age At Onset Arthritis Unknown Social History Social History Element Codes Description Effective Dates Marital status Unknown M arried Nathan 09/30/2016 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 Number of children Unknown 3 01/22/[address]: 165170874 Never smoker 01/22/[address]: 986089680 Never drinks alcohol 01/22/2015 Allergies, Adverse Reactions, Alerts Substance Reaction Codes Entered Date Inactivated Date Status * NO KNOWN DRUG ORIN RGIES Unknown 01/22/2015 No Inactive Date Active Past Medical History Illness Codes Condition Status Onset Date Resolved Date Hypothyroidism, unsp ecified ICD-9: 244.9 ICD-10: E03.9 Active 05/27/2017 Unknown 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 ICD-9: V58.61 ICD-10: [...] ecified ICD-9: 244.9 ICD-10: E03.9 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/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 ICD-9: V58.61 ICD-10: [...] E R 20 mEq tablet,extended release RxNorm: 168803 1 Tablet(s) PO daily 09/02/2018 12/30/2018 Active Plavix 75 mg tablet RxNorm: 263551 TAKE ONE TABLET BY MOUTH DAILY 09/02/2018 02/28/2019 Ac tive Keflex 500 mg capsule RxNorm: 310502 1 Capsule(s) PO TID 09/02/2018 09/08/2018 Active prednisone 10 mg tablet RxNorm: 218001 Tablet(s) PO 09/02/2018 No Stop Date Active 60,60,50,50,40,40,30,30,20,20,10,10 Synthroid 125 mcg ta blet RxNorm: 663829 1 Tablet(s) PO daily 09/02/2018 08/27/2019 Active potassium chloride E R 20 mEq tablet,extended release RxNorm: 051135 1 Tablet(s) PO daily 09/02/2018 09/01/2018 Inactive Synthroid 125 mcg ta blet RxNorm: 535897 1 Tablet(s) PO daily 09/02/2018 09/01/2018 Inactive Kenalog 40 mg/mL maxine pension for injection RxNorm: 2455237 Milliliter(s) Inj 09/02/2018 09/02/2018 In active Lipitor 40 mg tablet RxNorm: 434797 TAKE ONE TABLET BY MOUTH DAILY 07/29/2018 07/23/2019 Ac tive Coumadin 1 mg tablet RxNorm: 317614 TAKE ONE TABLET BY MOUTH DAILY 07/29/2018 10/26/2018 Ac tive Carafate 1 gram tablet RxNorm: 678239 TAKE ONE TABLET BY MOUTH BEFORE MEALS AN D AT BEDTIME 07/28/2018 09/17/2018 Active Coumadin 4 mg tablet RxNorm: 975111 2 Tablet(s) daily 07/11/2018 02/05/2019 Active Generi c For:COUMADIN 4MG 07/22/2017 8:58:26 AM Coumadin 5 mg tablet RxNorm: 579390 Tablet(s) TAKE 1 TABLET BY MOUTH DIRE CTED 07/08/2018 01/03/2019 Ac tive Generic For:COUMADIN 5MG TAB 03/21/2018 9:13:00 AM Coumadin 4 mg tablet RxNorm: 754105 Tablet(s) TAKE 1 TABLET BY MOUTH THREE T IMES PER WEEK (WEDNESDAY, WEDNESDAY AND WEDNESDAY) 07/08/2018 07/10/2018 Inactive Gene andre For:COUMADIN 4MG 07/22/2017 8:58:26 AM Coumadin 1 mg tablet RxNorm: 667974 1 Tablet(s) PO daily 07/08/2018 08/06/2018 Inactive venlafaxine ER 75 mg capsule,extended release 24 hr RxNorm: 194724 Capsule(s) TAKE 1 CAPSULE BY MOUTH ONCE DAILY 06/23/2018 06/17/2019 Active Generic For:*EFFEXOR XR 75MG 06/19/2017 12:23:45 PM sodium bicarbonate 6 50 mg tablet RxNorm: 270584 Tablet(s) TAKE 2 TABL ETS BY MOUTH TWICE DAILY 06/23/2018 12/19/2018 Active 12/20/2017 9:10:59 AM Coumadin 1 mg tablet RxNorm: 021207 1 Tablet(s) PO daily 06/17/2018 07/07/2018 Inactive Coumadin 1 mg tablet RxNorm: 664895 1 Tablet(s) PO daily 06/17/2018 06/16/2018 Inactive clonazepam 0.5 mg ta blet RxNorm: 181453 1 Tablet(s) PO BID 06/08/2018 11/04/2018 Active spironolactone 25 mg tablet RxNorm: 366678 TAKE 1 TABLET BY MOUT H EVERY DAY 05/18/2018 05/12/2019 Ac tive Generic For:*ALDACTONE 25MG 05/18/2018 8:57:50 AM Carafate 1 gram tablet RxNorm: 656146 TAKE ONE TABLET BY MOUTH BEFORE MEALS AN D AT BEDTIME 05/18/2018 07/12/2018 Inactive Generic For:CARAFATE 1GM 1 07/18/2017 8:38:28 AM Synthroid 137 mcg ta blet RxNorm: 528231 TAKE 1 TABLET BY MOUT H ONCE DAILY 05/18/2018 08/30/2018 In active Generic For:SYNTHROID 137MCG TAB 2017 8:57:54 AM allopurinol 300 mg t ablet RxNorm: 547707 TAKE 1 TABLET BY MOUT H ONCE DAILY. 04/18/2018 10/14/2018 Ac tive Generic For:ZYLOPRIM 300 MG TABLET 03/22 9:13:47 AM Lasix 20 mg tablet RxNorm: 942714 TAKE ONE TABLET BY MOUTH DAILY 04/18/2018 08/15/2018 In active Generic For:LASIX 20MG 04/18/2018 9:13: 50 AM Carafate 1 gram tablet RxNorm: 128105 TAKE ONE TABLET BY MOUTH BEFORE MEALS AN D AT BEDTIME 04/18/2018 05/17/2018 Inactive Generic For:CARAFATE 1GM 1 9:32:51 AM Coumadin 5 mg tablet RxNorm: 716500 TAKE 1 TABLET BY MOUTH DIRECTED 03/21/2018 07/07/2018 In active Generic For:COUMADIN 5MG TAB 03/21/2018 9:13:00 AM Carafate 1 gram tablet RxNorm: 605230 TAKE ONE TABLET BY MOUTH BEFORE MEALS AN D AT BEDTIME 03/21/2018 04/17/2018 Inactive Generic For:CARAFATE 1GM 1 9:14:24 AM Carafate 1 gram tablet RxNorm: 859080 1 Tablet(s) PO AC & HS 02/17/2018 03/20/2018 Inactive atenolol 100 mg tablet RxNorm: 997269 1 Tablet(s) PO daily 02/04/2018 09/01/2018 Inactive atenolol 50 mg tablet RxNorm: 711259 1 Tablet(s) PO daily 02/03/2018 02/03/2018 Inactive omeprazole 20 mg cap sean,delayed release RxNorm: 899457 1 Capsule(s) BID 01/21/2018 01/15/2019 Ac tive Generic For:PRILOSEC 20MG 07/22/2017 8:5 8:20 AM Carafate 1 gram tablet RxNorm: 537824 1 Tablet(s) PO AC & HS 01/21/2018 02/16/2018 Inactive Carafate 1 gram tablet RxNorm: 448604 1 Tablet(s) PO AC & HS 01/18/2018 01/20/2018 Inactive Carafate 1 gram tablet RxNorm: 829668 1 Tablet(s) PO AC & HS 01/18/2018 02/27/2018 Inactive Carafate 1 gram tablet RxNorm: 300723 1 Tablet(s) PO AC & HS TAKE ONE TABLET B Y MOUTH TWICE DAILY 01/18/2018 05/17/2018 Inactive Generic For:CARAFATE 1GM 0 12/20/2017 9:10:56 AM omeprazole 20 mg cap sean,delayed release RxNorm: 702405 Capsule(s) TAKE 1 CAP SEAN BY MOUTH EVERY DAY 01/17/2018 01/20/2018 Inactive Generic For:PRILOSEC 20MG 0 07/22/2017 8:58:20 AM omeprazole 20 mg cap sean,delayed release RxNorm: 732484 Capsule(s) TAKE 1 CAP SEAN BY MOUTH EVERY DAY 01/14/2018 01/16/2018 Inactive Generic For:PRILOSEC 20MG 07/22/2017 8:58:20 AM clonazepam 0.5 mg ta blet RxNorm: 663597 1 Tablet(s) PO BID 01/07/2018 06/05/2018 Inactive Plavix 75 mg tablet RxNorm: 147831 1 Tablet(s) PO daily 01/07/2018 07/05/2018 Inactive Carafate 1 gram tablet RxNorm: 505103 1 Tablet(s) PO AC & HS 01/04/2018 01/17/2018 Inactive Lasix 20 mg tablet RxNorm: 698797 TAKE ONE TABLET BY MOUTH DAILY 12/20/2017 04/17/2018 In active Generic For:LASIX 20MG 12/20/2017 9:11: 03 AM sodium bicarbonate 6 50 mg tablet RxNorm: 733063 TAKE 2 TABLETS BY JAVON TH TWICE DAILY 12/20/2017 06/17/2018 In active 12/20/2017 9:10:59 AM Carafate 1 gram tablet RxNorm: 901327 TAKE ONE TABLET BY MOUTH TWICE DAILY 12/20/2017 01/17/2018 In active Generic For:CARAFATE 1GM 12/20/2017 9:1 0:56 AM Synthroid 137 mcg ta blet RxNorm: 213444 TAKE 1 TABLET BY MOUT H ONCE DAILY 11/19/2017 05/17/2018 In active Generic For:SYNTHROID 137MCG TAB 2017 8:58:04 AM Detrol LA 4 mg capsu le,extended release RxNorm: 394190 TAKE 1 CAPSULE BY JAVON TH ONCE DAILY 10/20/2017 04/13/2018 Inactive Generic For:DETROL LA 4MG C AP 10/20/2017 9:01:56 AM allopurinol 300 mg t ablet RxNorm: 946170 TAKE 1 TABLET BY MOUT H ONCE DAILY. 10/20/2017 04/17/2018 In active Generic For:ZYLOPRIM 300 MG TABLET 07/2017 9:01:59 AM Coumadin 5 mg tablet RxNorm: 054142 1 Tablet(s) PO UD 10/01/2017 03/20/2018 Inactive cyclobenzaprine 5 mg tablet RxNorm: 367874 1 Tablet(s) PO TID as needed myscle spasm 09/23/2017 10/12/2017 Inactive Lipitor 40 mg tablet RxNorm: 483126 TAKE 1 TABLET BY MOUTH ONCE DAILY 09/20/2017 07/28/2018 In active Generic For:LIPITOR 40MG 09/20/2017 8:5 6:04 AM atenolol 100 mg tablet RxNorm: 743761 1 Tablet(s) PO daily 08/30/2017 02/03/2018 Inactive atenolol 50 mg tablet RxNorm: 737175 1 Tablet(s) PO daily 08/30/2017 08/30/2017 Inactive Lovenox 30 mg/0.3 mL subcutaneous syringe RxNorm: 091730 0.3 Milliliter(s) SQ Q12H 08/24/2017 09/06/2017 In active Lasix 20 mg tablet RxNorm: 172264 TAKE ONE TABLET BY MOUTH DAILY 08/23/2017 12/19/2017 In active Generic For:LASIX 20MG 08/21/2017 9:04: 27 AM Synthroid 137 mcg ta blet RxNorm: 605546 TAKE 1 TABLET BY MOUT H ONCE DAILY 08/23/2017 11/18/2017 In active Generic For:SYNTHROID 137MCG TAB 2017 9:04:30 AM Lovenox 30 mg/0.3 mL subcutaneous syringe RxNorm: 291329 0.3 Milliliter(s) SQ Q12H 08/10/2017 08/23/2017 In active clonazepam 0.5 mg ta blet RxNorm: 947004 1 Tablet(s) PO BID 08/04/2017 12/30/2017 Inactive Coumadin 4 mg tablet RxNorm: 413786 TAKE 1 TABLET BY MOUTH THREE TIMES PER W CROW (WEDNESDAY, WEDNESDAY AND WEDNESDAY) 07/22/2017 02/16/2018 Inactive Generic For:COUMADIN 4MG 07/22/2017 8:58:26 AM omeprazole 20 mg cap sean,delayed release RxNorm: 112965 TAKE 1 CAPSULE BY JAVON TH EVERY DAY 07/22/2017 01/13/2018 Inactive Generic For:PRILOSEC 20MG 07/22/2017 8: 58:20 AM Coumadin 4 mg tablet RxNorm: 912521 TAKE 1 TABLET BY MOUTH THREE TIMES PER W CROW (WEDNESDAY, WEDNESDAY AND WEDNESDAY) 07/22/2017 02/16/2018 Inactive Generic For:COUMADIN 4MG 07/22/2017 8:58:26 AM sodium bicarbonate 6 50 mg tablet RxNorm: 687514 TAKE 2 TABLETS BY JAVON TH TWICE DAILY 06/22/2017 12/18/2017 In active 06/19/2017 12:23:30 PM venlafaxine ER 75 mg capsule,extended release 24 hr RxNorm: 847579 TAKE 1 CAPSULE BY MOUTH ONCE DAILY 06/22/2017 06/16/2018 Inactive Generic For:*EFFEXOR XR 75M G 06/19/2017 12:23:45 PM Coumadin 5 mg tablet RxNorm: 221691 1 Tablet(s) PO UD 06/01/2017 09/30/2017 Inactive Keflex 500 mg capsule RxNorm: 697474 1 Capsule(s) PO TID 05/27/2017 06/02/2017 Inactive Synthroid 137 mcg ta blet RxNorm: 311376 TAKE 1 TABLET BY MOUT H ONCE DAILY 05/24/2017 08/21/2017 In active Generic For:SYNTHROID 137MCG TAB 2016 8:55:59 AM Carafate 1 gram tablet RxNorm: 971818 TAKE ONE TABLET BY MOUTH TWICE DAILY 05/24/2017 12/19/2017 In active Generic For:CARAFATE 1GM 05/24/2017 8:5 5:54 AM spironolactone 25 mg tablet RxNorm: 246963 1 Tablet(s) PO daily 05/24/2017 05/17/2018 Inactive Detrol LA 4 mg capsu le,extended release RxNorm: 153695 1 Capsule(s) PO daily TAKE 1 CAPSULE BY MOUTH ONCE DAILY 05/10/2017 10/19/2017 Inactive Generic For:DETROL LA 4MG CAP 02/19/2017 2:36:00 PM Lasix 20 mg tablet RxNorm: 846945 TAKE ONE TABLET BY MOUTH DAILY 04/23/2017 08/20/2017 In active Generic For:LASIX 20MG 04/23/2017 9:04: 01 AM Coumadin 4 mg tablet RxNorm: 845323 TAKE 1 TABLET BY MOUTH THREE TIMES PER W CROW (WEDNESDAY, WEDNESDAY AND WEDNESDAY) 04/23/2017 07/21/2017 Inactive Generic For:COUMADIN 4MG 04/23/2017 9:04:05 AM allopurinol 300 mg t ablet RxNorm: 639350 TAKE 1 TABLET BY MOUT H ONCE DAILY. 04/23/2017 10/19/2017 In active Generic For:ZYLOPRIM 300 MG TABLET 08/2016 9:03:57 AM potassium chloride 2 0 mEq/15 mL oral liquid RxNorm: 452569 Milliliter(s) 30 Milliliter(s) (40mEq) PO daily 03/24/2017 07/21/2017 Inactive Lovenox 30 mg/0.3 mL subcutaneous syringe RxNorm: 000483 0.3 Milliliter(s) SQ Q12H 03/22/2017 03/26/2017 In active Lovenox 30 mg/0.3 mL subcutaneous syringe RxNorm: 119215 0.3 Milliliter(s) SQ Q12H 03/19/2017 03/20/2017 In active Lovenox 30 mg/0.3 mL subcutaneous syringe RxNorm: 234947 0.3 Milliliter(s) SQ Q12H 03/16/2017 03/18/2017 In active clonazepam 0.5 mg ta blet RxNorm: 228047 1 Tablet(s) PO BID 03/02/2017 07/28/2017 Inactive Lovenox 30 mg/0.3 mL subcutaneous syringe RxNorm: 863793 1 injection SQ BID do NOT take the night time dose the day before surgery, or the morning dose the day of surgery 03/01/2017 03/07/2017 Inactive Lovenox 30 mg/0.3 mL subcutaneous syringe RxNorm: 955894 1 injection SQ BID 03/01/2017 02/28/2017 In active Detrol LA 4 mg capsu le,extended release RxNorm: 269763 TAKE 1 CAPSULE BY JAVON TH ONCE DAILY 02/19/2017 05/09/2017 Inactive Generic For:DETROL LA 4MG C AP 02/19/2017 2:36:00 PM hydrocodone 5 mg-humberto taminophen 325 mg tablet RxNorm: 544591 1-2 Tablet(s) PO Q6 P RN 02/04/2017 No Stop Date Active Zetia 10 mg tablet RxNorm: 915464 TAKE 1 TABLET BY MOUTH DAILY 01/25/2017 04/13/2018 Inactive 01/23/2017 9:03:48 AM omeprazole 20 mg cap sean,delayed release RxNorm: 056739 TAKE 1 CAPSULE BY JAVON TH EVERY DAY 01/25/2017 07/21/2017 Inactive Generic For:PRILOSEC 20MG 01/23/2017 9: 03:45 AM Coumadin 4 mg tablet RxNorm: 879747 TAKE 1 TABLET BY MOUTH THREE TIMES PER W CROW (WEDNESDAY, WEDNESDAY AND WEDNESDAY) 01/25/2017 04/22/2017 Inactive Generic For:COUMADIN 4MG 01/23/2017 9:03:51 AM sodium bicarbonate 6 50 mg tablet RxNorm: 571238 TAKE 2 TABLETS BY JAVON TH TWICE DAILY 12/24/2016 06/21/2017 In active 12/24/2016 9:09:27 AM Lasix 20 mg tablet RxNorm: 782592 1 Tablet(s) PO daily 12/24/2016 04/22/2017 Inactive Synthroid 137 mcg ta blet RxNorm: 660582 TAKE 1 TABLET BY MOUT H ONCE DAILY 11/24/2016 05/22/2017 In active Generic For:SYNTHROID 137MCG TAB 2016 9:04:37 AM Coumadin 4 mg tablet RxNorm: 182700 TAKE 1 TABLET BY MOUTH THREE TIMES PER W CROW (WEDNESDAY, WEDNESDAY AND WEDNESDAY) 11/24/2016 01/22/2017 Inactive Generic For:COUMADIN 4MG 11/24/2016 9:04:41 AM hydrocodone 5 mg-humberto taminophen 325 mg tablet RxNorm: 294506 1-2 Tablet(s) PO Q6 P RN 11/17/2016 02/03/2017 In active Carafate 1 gram tablet RxNorm: 442992 TAKE ONE TABLET BY MOUTH TWICE DAILY 10/27/2016 05/23/2017 In active Generic For:CARAFATE 1GM 10/26/2016 8:3 9:42 AM allopurinol 300 mg t ablet RxNorm: 774364 Tablet(s) TAKE 1 TABL ET BY MOUTH ONCE DAILY. 10/26/2016 04/22/2017 Inactive Lipitor 40 mg tablet RxNorm: 035515 1 Tablet(s) PO daily 09/25/2016 09/19/2017 Inactive Coumadin 4 mg tablet RxNorm: 715033 TAKE 1 TABLET BY MOUTH THREE TIMES PER W CROW (WEDNESDAY, WEDNESDAY AND WEDNESDAY) 09/25/2016 11/23/2016 Inactive Generic For:COUMADIN 4MG 09/25/2016 8:55:58 AM Zetia 10 mg tablet RxNorm: 168885 1 Tablet(s) PO daily 09/25/2016 01/22/2017 Inactive gave 1 month of samples clonazepam 0.5 mg ta blet RxNorm: 100553 1 Tablet(s) PO BID 09/21/2016 02/16/2017 Inactive Lasix 20 mg tablet RxNorm: 127252 1 Tablet(s) PO daily 09/15/2016 12/23/2016 Inactive potassium chloride 2 0 mEq/15 mL oral liquid RxNorm: 140043 Milliliter(s) 30 Milliliter(s) (40mEq) PO daily 09/15/2016 01/12/2017 Inactive Lasix 20 mg tablet RxNorm: 2 Tablet(s) PO daily 09/10/2016 09/12/2016 Inactive Lasix 20 mg tablet RxNorm: 1 Tablet(s) PO daily 08/28/2016 08/30/2016 Inactive Lasix 20 mg tablet RxNorm: 1 Tablet(s) PO daily 08/20/2016 08/22/2016 Inactive Detrol LA 4 mg capsu le,extended release RxNorm: 505619 TAKE 1 CAPSULE BY JAVON TH ONCE DAILY 07/27/2016 02/18/2017 Inactive Generic For:DETROL LA 4MG C AP 07/27/2016 9:08:27 AM Coumadin 4 mg tablet RxNorm: 137944 1 Tablet(s) PO 3 x week tue thur and sun 07/27/2016 09/24/2016 In active omeprazole 20 mg cap sean,delayed release RxNorm: 898300 Capsule(s) PO TAKE 1 CAPSULE BY MOUTH ONCE DAILY 07/27/2016 01/22/2017 Inactive venlafaxine ER 75 mg capsule,extended release 24 hr RxNorm: 036754 1 Capsule(s) PO daily 06/29/2016 06/21/2017 Inactive sodium bicarbonate 6 50 mg tablet RxNorm: 466591 TAKE 2 TABLETS BY JAVON TH TWICE DAILY 06/29/2016 12/23/2016 In active 06/27/2016 9:05:39 AM Coumadin 4 mg tablet RxNorm: 829235 1 Tablet(s) PO 3 x week e and sun 06/09/2016 06/08/2016 In active Coumadin 4 mg tablet RxNorm: 192690 1 Tablet(s) PO 3 x week e thur and sun 06/09/2016 07/26/2016 In active Zetia 10 mg tablet RxNorm: 174719 1 Tablet(s) PO daily 06/09/2016 06/08/2016 Inactive gave 1 month of samples Zetia 10 mg tablet RxNorm: 718337 1 Tablet(s) PO daily 06/09/2016 09/24/2016 Inactive gave 1 month of samples Effexor 75 mg tablet RxNorm: 184451 1 Tablet(s) PO daily 06/08/2016 06/28/2016 Inactive spironolactone 25 mg tablet RxNorm: 827627 1 Tablet(s) PO daily 06/08/2016 05/23/2017 Inactive Synthroid 137 mcg ta blet RxNorm: 965829 1 Tablet(s) PO daily 05/07/2016 11/02/2016 Inactive allopurinol 300 mg t ablet RxNorm: 044678 Tablet(s) TAKE 1 TABL ET BY MOUTH ONCE DAILY. 04/28/2016 10/24/2016 Inactive clonazepam 0.5 mg ta blet RxNorm: 283250 1 Tablet(s) PO BID 04/20/2016 09/15/2016 Inactive Flonase Allergy Reli ef 50 mcg/actuation nasal spray,suspension RxNorm: 3820575 1 [place] NASAL BID 04/02/2016 No Stop Date Active Zithromax Z-Thomas 250 mg tablet RxNorm: 497221 Tablet(s) PO 04/02/2016 08/27/2016 Inactive cetirizine 10 mg tablet RxNorm: 7620130 1 Tablet(s) PO daily 04/02/2016 05/01/2016 Inactive Carafate 1 gram tablet RxNorm: 787669 Tablet(s) TAKE 1 TABLET TWICE A DAY FOR 30 DAYS 03/30/2016 10/25/2016 Inactive Generic For:CARAFATE 1GM 02/08/2015 12:3 6:39 PM Plavix 75 mg tablet RxNorm: 581147 1 Tablet(s) PO daily 03/11/2016 09/06/2016 Inactive sodium bicarbonate 6 50 mg tablet RxNorm: 919214 Tablet(s) 2 Tablet(s) PO BID 02/28/2016 06/26/2016 In active omeprazole 20 mg cap sean,delayed release RxNorm: 199225 Capsule(s) PO TAKE 1 CAPSULE BY MOUTH ONCE DAILY 01/31/2016 07/26/2016 Inactive Fish Oil 1,000 mg ca psule RxNorm: 1 Capsule(s) PO BID 01/14/2016 No Stop Date Active Synthroid 137 mcg ta blet RxNorm: 647874 1 Tablet(s) PO daily 01/14/2016 05/06/2016 Inactive Detrol LA 4 mg capsu le,extended release RxNorm: 365588 TAKE 1 CAPSULE BY JAVON TH ONCE DAILY 12/30/2015 07/26/2016 Inactive Generic For:DETROL LA 4MG C AP 12/30/2015 9:11:01 AM potassium chloride 2 0 mEq/15 mL oral liquid RxNorm: 694177 Milliliter(s) 30 Milliliter(s) (40mEq) PO daily 12/02/2015 03/30/2016 Inactive sodium bicarbonate 6 50 mg tablet RxNorm: 108968 Tablet(s) 2 Tablet(s) PO BID 10/31/2015 02/27/2016 In active Lipitor 40 mg tablet RxNorm: 655660 1 Tablet(s) PO daily 10/09/2015 09/24/2016 Inactive sodium bicarbonate 6 50 mg tablet RxNorm: 889855 2 Tablet(s) PO BID 10/01/2015 10/30/2015 Inactive allopurinol 300 mg t ablet RxNorm: 761391 TAKE 1 TABLET BY MOUT H ONCE DAILY. 10/01/2015 04/27/2016 In active Generic For:ZYLOPRIM 300 MG TABLET 09/19 9:21:15 AM clonazepam 0.5 mg ta blet RxNorm: 526007 1 Tablet(s) PO BID 09/30/2015 04/19/2016 Inactive Coumadin 5 mg tablet RxNorm: 878158 1 Tablet(s) PO daily 09/27/2015 05/31/2017 Inactive Generic For:COUMADIN 5MG TAB N O T I C E PRESCRIPTION PREVIOUSLY AUTHORIZED BY DOCTOR:BOBBY ZULETA Synthroid 125 mcg ta blet RxNorm: 235714 1 Tablet(s) PO daily 09/27/2015 09/26/2015 Inactive Synthroid 125 mcg ta blet RxNorm: 330958 1 Tablet(s) PO daily 09/27/2015 01/13/2016 Inactive Carafate 1 gram tablet RxNorm: 379157 Tablet(s) TAKE 1 TABLET TWICE A DAY FOR 30 DAYS 09/02/2015 03/29/2016 Inactive Generic For:CARAFATE 1GM 02/08/2015 12:3 6:39 PM sodium bicarbonate 6 50 mg tablet RxNorm: 016379 2 Tablet(s) PO BID 09/02/2015 09/30/2015 Inactive Prilosec 20 mg capsu le,delayed release RxNorm: 564150 TAKE 1 CAPSULE BY JAVON TH ONCE DAILY 08/02/2015 01/28/2016 Inactive Generic For:PRILOSEC 20MG 08/02/2015 10:03:09 AM N O T I C E PRESCRIPTION PREVIOUSLY AUTHORIZED BY DOCTOR:BOBBY ZULETA Zyrtec 10 mg capsule RxNorm: 3898072 1 Capsule(s) PO daily 07/15/2015 08/13/2015 Inactive Keflex 500 mg capsule RxNorm: 278310 1 Capsule(s) PO TID 07/15/2015 07/21/2015 Inactive cetirizine 10 mg cap sean RxNorm: 8733194 1 Capsule(s) PO daily 07/15/2015 08/13/2015 Inactive hydrocodone 5 mg-humberto taminophen 325 mg tablet RxNorm: 414135 1-2 Tablet(s) PO Q6 P RN 06/10/2015 11/16/2016 In active sodium bicarbonate 6 50 mg tablet RxNorm: 406454 2 Tablet(s) PO BID 06/03/2015 08/31/2015 Inactive Detrol LA 4 mg capsu le,extended release RxNorm: 694330 TAKE 1 CAPSULE BY JAVON TH ONCE DAILY 06/03/2015 12/29/2015 Inactive Generic For:DETROL LA 4MG C AP N O T I C E PRESCRIPTION PREVIOUSLY AUTHORIZED BY DOCTOR:BOBBY ZULETA atenolol 50 mg tablet RxNorm: 184581 1 Tablet(s) PO daily TAKE 1 TABLET BY MO UTH DAILY 05/07/2015 08/23/2017 Inactive Generic For:TENORMIN 50MG 05/04/2015 9:07:22 AM spironolactone 25 mg tablet RxNorm: 204651 1 Tablet(s) PO daily 05/06/2015 06/07/2016 Inactive venlafaxine ER 75 mg capsule,extended release 24 hr RxNorm: 868522 1 Capsule(s) PO daily 05/04/2015 06/28/2016 Inactive atenolol 50 mg tablet RxNorm: 316988 TAKE 1 TABLET BY MOUTH DAILY 05/04/2015 05/06/2015 Inactive Generic For:TENORMIN 50MG 05/04/2015 9: 07:22 AM Synthroid 150 mcg ta blet RxNorm: 978449 TAKE 1 TABLET BY MOUT H ONCE DAILY. 04/05/2015 09/26/2015 In active Generic For:SYNTHROID 150MCG TAB 2014 4:45:40 PM N O T I C E PRESCRIPTION PREVIOUSLY AUTHORIZED BY DOCTOR:BOBBY ZULETA Effexor 75 mg tablet RxNorm: 371210 1 Tablet(s) PO daily 04/05/2015 07/03/2015 Inactive Coumadin 5 mg tablet RxNorm: 132434 TAKE 1 AND 1/2 TABLETS BY MOUTH ONCE MYRANDA LY 04/04/2015 09/26/2015 In active Generic For:COUMADIN 5MG TAB N O T I C E PRESCRIPTION PREVIOUSLY AUTHORIZED BY DOCTOR:BOBBY ZULETA clonazepam 0.5 mg ta blet RxNorm: 908203 1 Tablet(s) PO BID 03/13/2015 11/05/2015 Inactive sodium bicarbonate 6 50 mg tablet RxNorm: 959630 2 Tablet(s) PO BID 03/08/2015 06/02/2015 Inactive allopurinol 300 mg t ablet RxNorm: 584102 TAKE 1 TABLET BY MOUT H ONCE DAILY. 03/05/2015 09/30/2015 In active N O T I C E PRESCRIPTION PREVIOUSLY A UTHORIZED BY DOCTOR:BOBBY ZULETA Plavix 75 mg tablet RxNorm: 439047 1 Tablet(s) PO daily 02/12/2015 09/09/2015 Inactive clonazepam 0.5 mg ta blet RxNorm: 697393 1 Tablet(s) PO BID 02/11/2015 03/11/2015 Inactive Carafate 1 gram tablet RxNorm: 617607 TAKE 1 TABLET TWICE A DAY FOR 30 DAYS 02/08/2015 02/07/2015 In active Generic For:CARAFATE 1GM 02/08/2015 12:3 6:39 PM Carafate 1 gram tablet RxNorm: 080168 Tablet(s) TAKE 1 TABLET TWICE A DAY FOR 30 DAYS 02/08/2015 09/01/2015 Inactive Generic For:CARAFATE 1GM 02/08/2015 12:3 6:39 PM potassium chloride 2 0 mEq/15 mL oral liquid RxNorm: 889051 30 Milliliter(s) (40m Eq) PO daily 02/05/2015 12/01/2015 Inactive atenolol 50 mg tablet RxNorm: 603762 1 Tablet(s) PO daily 02/04/2015 05/03/2015 Inactive [SAVINGS FOR NON-COVERED DRUGS -- BIN:00 3585, PCN: [email or web address], Group: XXXXX, ID# XXXXXXX, Questions: . THIS IS NOT INSURANCE.] potassium chloride 2 0 mEq/15 mL oral liquid RxNorm: 762161 30 Milliliter(s) (40m Eq) PO daily 01/08/2015 02/04/2015 Inactive potassium chloride 2 0 mEq/15 mL oral liquid RxNorm: 903113 30 Milliliter(s) (40m Eq) PO daily 12/07/2014 01/07/2015 Inactive atenolol 50 mg tablet RxNorm: 741821 1 Tablet(s) PO daily 11/09/2014 11/08/2014 Inactive atenolol 50 mg tablet RxNorm: 657509 1 Tablet(s) PO daily 11/09/2014 02/03/2015 Inactive [SAVINGS FOR NON-COVERED DRUGS -- BIN:[id number], PCN: [id number], Group: XXXXX, ID# [id number], Questions: . THIS IS NOT INSURANCE.] Voltaren 1 % topical gel RxNorm: 059259 TOP No St art Date Active verapamil ER (HS) 24 0 mg tablet,extended release 24 hr RxNorm: 311001 1 Tablet(s) PO daily No Start Date Active aspirin 81 mg tablet RxNorm: 610432 1 Tablet(s) PO daily No Start Date Active Zofran 4 mg tablet RxNorm: 500063 1 Tablet(s) PO PRN No Start Date Active B12 1000 mcg RxNorm: 1 Tablet(s) PO daily No Start Date Active magnesium oxide 400 mg capsule RxNorm: 451178 2 Capsule(s) PO BID No Start Date Active Synthroid 150 mcg ta blet RxNorm: 398241 1 Tablet(s) PO daily No Start Date 04/04/2015 Inactive Coumadin 5 mg tablet RxNorm: 630950 1 Tablet(s) PO daily No Start Date 04/03/2015 Inactive cranberry 1,000 mg c apsule RxNorm: 019397 1 Capsule(s) PO daily No Start Date 04/13/2018 Inactive allopurinol 300 mg t ablet RxNorm: 266827 1 Tablet(s) PO daily No Start Date 03/04/2015 Inactive Prilosec 20 mg capsu le,delayed release RxNorm: 653715 1 Capsule(s) PO PRN No Start Date 08/01/2015 Inactive potassium chloride 2 0 mEq/15 mL oral liquid RxNorm: 412657 30 Milliliter(s) (40m Eq) PO daily No Start Date 12/06/2014 Inactive atenolol 50 mg tablet RxNorm: 296461 1 Tablet(s) PO daily No Start Date 08/29/2017 Inactive Lipitor 40 mg tablet RxNorm: 102191 1 Tablet(s) PO daily No Start Date 09/19/2017 Inactive Effexor 75 mg tablet RxNorm: 749136 1 Tablet(s) PO daily No Start Date 04/04/2015 Inactive Carafate 1 gram tablet RxNorm: 455854 1 Tablet(s) PO BID No Start Date 02/07/2015 Inactive clonazepam 0.5 mg ta blet RxNorm: 890030 1 Tablet(s) PO BID No Start Date 02/10/2015 Inactive Plavix 75 mg tablet RxNorm: 377258 1 Tablet(s) PO daily No Start Date 02/11/2015 Inactive sodium bicarbonate 6 50 mg tablet RxNorm: 943914 2 Tablet(s) PO BID No Start Date 09/01/2015 Inactive Lovenox 30 mg/0.3 mL subcutaneous syringe RxNorm: 907078 0.3 Milliliter(s) SQ Q12H No Start Date 03/15/2017 Inactive Fish Oil 1,000 mg ca psule RxNorm: 1 Capsule(s) PO daily No Start Date 01/13/2016 Inactive Detrol LA 4 mg capsu le,extended release RxNorm: 781596 1 Capsule(s) PO daily No Start Date 06/02/2015 Inactive Medication Administered Medication Codes Instruc tions Start Date Status Kenalog 40 mg/mL suspension for injection RxNorm: 3888653 Milliliter 09/02/2018 No longer Active Immunizations Vaccine Codes Date Status SHINGARIX CVX: 121 03/23 completed Assessments Condition Codes Effectiv e Dates Other acute sinusitis ICD-10: J01.80 ICD-9: 461.8 09/02/2018 Other allergic rhinitis ICD-10: J30. 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 ICD-10: Z79.01 ICD-9: [...] (3rd IS) 0.43 uIU/mL 09/02/2018 Comp Metabolic Hbm825 NA 136 mEq/L 09/02/2018 Comp Metabolic Gjp550 K 4.1 mEq/L 09/02/2018 Comp Metabolic Epw391 CL 103 mEq/L 09/02/2018 Comp Metabolic Wqf315 CO2 20.0 mEq/L 09/02/2018 Comp Metabolic Ybp679 AN ION GAP 17 09/02/2018 Comp Metabolic Cxx737 GL UCOSE 124 mg/dL 09/02/2018 Comp Metabolic Ysv534 Cr eat 1.0 mg/dL 09/02/2018 Comp Metabolic Haa554 eG FR 57 ml/min/1.73m2 09/02 Comp Metabolic Hgk620 BUN 24 mg/dL 09/02/2018 Comp Metabolic Ulk685 B/ C Ratio 23.8 Ratio 09/02/2018 Comp Metabolic Zmm908 CA LCIUM 9.5 mg/dL 09/02/2018 Comp Metabolic Kqc866 AL K PHOS 64 U/L 09/02/2018 Comp Metabolic Uvd594 T(SGOT) 24 U/L 09/02/2018 Comp Metabolic Fef922 AL T(SGPT) 23 U/L 09/02/2018 Comp Metabolic Dat528 BI LI T 0.5 mg/dL 09/02/2018 Comp Metabolic Urc886 AL BUMIN 4.2 g/dL 09/02/2018 Comp Metabolic Jxi350 TP RO 7.4 g/dL 09/02/2018 Comp Metabolic Ycb027 GL OB 3.2 g/dL 09/02/2018 Comp Metabolic Vgo307 A/ G Ratio 1.3 Ratio 09/02/2018 Comp Metabolic Bkw749 Os mo 277 mOsmo 09/02/2018 Pt Wds8042 PT 40.6 seconds 09/02/2018 Pt Dxw2458 INR 4.2 09/02/2018 Pt Bbb0425 Low Intensity - 1.5-2.0 09/02/2018 Pt Lqu9685 Mod intensity - 2.0-3.0 09/02/2018 Pt Som1380 Hi intensity - 3.0-4.0 09/02/2018 Free T4 Btp327 FREE T4 1.51 ng/dL 09/02/2018 Magnesium Ord90 Mag 1.8 mg/dL 09/02/2018 Pt Riu4819 PT 29.2 seconds 08/05/2018 Pt Yvg3110 INR 2.8 08/05/2018 Pt Osm3866 Low Intensity - 1.5-2.0 08/05/2018 Pt Tfs8328 Mod intensity - 2.0-3.0 08/05/2018 Pt Oit1632 Hi intensity - 3.0-4.0 08/05/2018 Pt Ojg8878 PT 30.2 seconds 07/25/2018 Pt Lgd8580 INR 2.9 07/25/2018 Pt Dor5720 Low Intensity - 1.5-2.0 07/25/2018 Pt Oao3289 Mod intensity - 2.0-3.0 07/25/2018 Pt Rfe8180 Hi intensity - 3.0-4.0 07/25/2018 Pt Thr2170 PT 25.2 seconds 07/19/2018 Pt Xut9353 INR 2.3 07/19/2018 Pt Unp8783 Low Intensity - 1.5-2.0 07/19/2018 Pt Xvh8260 Mod intensity - 2.0-3.0 07/19/2018 Pt Sta9611 Hi intensity - 3.0-4.0 07/19/2018 Pt Zhg6457 PT 17.4 seconds 07/15/2018 Pt Mem0794 INR 1.5 07/15/2018 Pt Avd5137 Low Intensity - 1.5-2.0 07/15/2018 Pt Qho3503 Mod intensity - 2.0-3.0 07/15/2018 Pt Xiu4954 Hi intensity - 3.0-4.0 07/15/2018 Pt Waq0510 PT 17.8 seconds 07/08/2018 Pt Hcv1271 INR 1.5 07/08/2018 Pt Ist1753 Low Intensity - 1.5-2.0 07/08/2018 Pt Imy3715 Mod intensity - 2.0-3.0 07/08/2018 Pt Evw4238 Hi intensity - 3.0-4.0 07/08/2018 Pt Syu8801 PT 19.2 seconds 07/01/2018 Pt Pph9376 INR 1.7 07/01/2018 Pt Sve7725 Low Intensity - 1.5-2.0 07/01/2018 Pt Myu6000 Mod intensity - 2.0-3.0 07/01/2018 Pt Sxd3753 Hi intensity - 3.0-4.0 07/01/2018 Pt Lkp8123 PT 17.4 seconds 06/23/2018 Pt Yvx0722 INR 1.5 06/23/2018 Pt Mxq4773 Low Intensity - 1.5-2.0 06/23/2018 Pt Tpd9753 Mod intensity - 2.0-3.0 06/23/2018 Pt Pwh9977 Hi intensity - 3.0-4.0 06/23/2018 Pt Quq6288 PT 18.4 seconds 06/17/2018 Pt Mfa6436 INR 1.6 06/17/2018 Pt Hwx4583 Low Intensity - 1.5-2.0 06/17/2018 Pt Nso7957 Mod intensity - 2.0-3.0 06/17/2018 Pt Ipx0800 Hi intensity - 3.0-4.0 06/17/2018 Sed Rate [...] 30.4 pg 06/08/2018 Cbc With Differential Ord2 Stevens% 9.4 % 06/08/2018 Cbc With Differential Ord2 [...] 1.20 K/ul 06/08/2018 Cbc With Differential Ord2 Stevens ABS# 0.5 K/ul 06/08/2018 Cbc With Differential Ord2 Eos ABS# 0.1 K/ul 06/08/2018 Cbc With Differential Ord2 Baso ABS# 0.1 K/ul 06/08/2018 C-Reactive Protein Qnt Crqnt CRP 0.1 mg/dl 06/08/2018 Pt Wnl0530 PT 17.6 seconds 06/08/2018 Pt Nlf2559 INR 1.5 06/08/2018 Pt Fmu8600 Low Intensity - 1.5-2.0 06/08/2018 Pt Trf0554 Mod intensity - 2.0-3.0 06/08/2018 Pt Yei3069 Hi intensity - 3.0-4.0 06/08/2018 Pt Tki0777 PT 16.8 seconds 05/10/2018 Pt Xyn9530 INR 1.4 05/10/2018 Pt Zef5173 Low Intensity - 1.5-2.0 05/10/2018 Pt Dhf6885 Mod intensity - 2.0-3.0 05/10/2018 Pt Ive1400 Hi intensity - 3.0-4.0 05/10/2018 Pt Hkz0061 PT 16.7 seconds 05/04/2018 Pt Opg5166 INR 1.4 05/04/2018 Pt Shc7397 Low Intensity - 1.5-2.0 05/04/2018 Pt Ied3297 Mod intensity - 2.0-3.0 05/04/2018 Pt Fpq1349 Hi intensity - 3.0-4.0 05/04/2018 Free T4 Atz467 FREE T4 1.09 ng/dL 04/14/2018 Tsh Ord6 TSH (3rd IS) 2.36 uIU/mL 04/14/2018 Pt Stf1506 PT 20.3 seconds 04/14/2018 Pt Rmo5014 INR 1.8 04/14/2018 Pt Epy4797 Low Intensity - 1.5-2.0 04/14/2018 Pt Ptz0493 Mod intensity - 2.0-3.0 04/14/2018 Pt Jhl9585 Hi intensity - 3.0-4.0 04/14/2018 Lipid Ord30 CHOL 149 mg/dL 04/14/2018 Lipid Ord30 HDL 49.0 mg/dl 04/14/2018 Lipid Ord30 TRIG 161 mg/dL 04/14/2018 Lipid Ord30 LDL 68 mg/dL 04/14/2018 Lipid Ord30 C/HDL 3.0 Ratio 04/14/2018 %Hba1C Cfa837 % HbA1c 27785-3 5.9 % 04/14/2018 %Hba1C Aap454 Gluc Ave 123 mg/dL 04/14/2018 Comp Metabolic Jvd248 NA 140 mEq/L 04/14/2018 Comp Metabolic Nug735 K 4.1 mEq/L 04/14/2018 Comp Metabolic Ote441 CL 105 mEq/L 04/14/2018 Comp Metabolic Zyl641 CO2 28.0 mEq/L 04/14/2018 Comp Metabolic Hzq890 AN ION GAP 11 04/14/2018 Comp Metabolic Yun055 GL UCOSE 112 mg/dL 04/14/2018 Comp Metabolic Gkd350 Cr eat 1.0 mg/dL 04/14/2018 Comp Metabolic Zoa114 eG FR 58 ml/min/1.73m2 04/14 Comp Metabolic Uve962 BUN 20 mg/dL 04/14/2018 Comp Metabolic Bxi552 B/ C Ratio 20.2 Ratio 04/14/2018 Comp Metabolic Ouy981 CA LCIUM 10.0 mg/dL 04/14/2018 Comp Metabolic Uvw259 AL K PHOS 51 U/L 04/14/2018 Comp Metabolic Znf566 T(SGOT) 24 U/L 04/14/2018 Comp Metabolic Gxk700 AL T(SGPT) 21 U/L 04/14/2018 Comp Metabolic Dzi229 BI LI T 0.8 mg/dL 04/14/2018 Comp Metabolic Byj709 AL BUMIN 4.2 g/dL 04/14/2018 Comp Metabolic Vwk183 TP RO 7.1 g/dL 04/14/2018 Comp Metabolic Jxr192 GL OB 2.9 g/dL 04/14/2018 Comp Metabolic Cbp312 A/ G Ratio 1.5 Ratio 04/14/2018 Comp Metabolic Ysb824 Os mo 283 mOsmo 04/14/2018 Cbc With [...] 30.7 pg 04/14/2018 Cbc With Differential Ord2 Stevens% 10.6 % 04/14/2018 Cbc With Differential Ord2 [...] 1.18 K/ul 04/14/2018 Cbc With Differential Ord2 Stevens ABS# 0.5 K/ul 04/14/2018 Cbc With Differential Ord2 Eos ABS# 0.2 K/ul 04/14/2018 Cbc With Differential Ord2 Baso ABS# 0.1 K/ul 04/14/2018 Pt Hij3043 PT 29.3 seconds 02/11/2018 Pt Eiw8027 INR 2.8 02/11/2018 Pt Pol8816 Low Intensity - 1.5-2.0 02/11/2018 Pt Zqo2630 Mod intensity - 2.0-3.0 02/11/2018 Pt Pqb4421 Hi intensity - 3.0-4.0 02/11/2018 Comp Metabolic Yyy553 NA 141 mEq/L 01/05/2018 Comp Metabolic Yzo885 K 3.7 mEq/L 01/05/2018 Comp Metabolic Rdm181 CL 102 mEq/L 01/05/2018 Comp Metabolic Lgv097 CO2 29.0 mEq/L 01/05/2018 Comp Metabolic Zxl823 AN ION GAP 14 01/05/2018 Comp Metabolic Ovu507 GL UCOSE 136 mg/dL 01/05/2018 Comp Metabolic Wey343 Cr eat 1.0 mg/dL 01/05/2018 Comp Metabolic Gxy167 eG FR 61 ml/min/1.73m2 01/05 Comp Metabolic Esd169 BUN 22 mg/dL 01/05/2018 Comp Metabolic Vli364 B/ C Ratio 22.9 Ratio 01/05/2018 Comp Metabolic Szv847 CA LCIUM 9.7 mg/dL 01/05/2018 Comp Metabolic Oau979 AL K PHOS 57 U/L 01/05/2018 Comp Metabolic Itx417 T(SGOT) 21 U/L 01/05/2018 Comp Metabolic Oct901 AL T(SGPT) 19 U/L 01/05/2018 Comp Metabolic Dfb754 BI LI T 0.9 mg/dL 01/05/2018 Comp Metabolic Kvu314 AL BUMIN 4.1 g/dL 01/05/2018 Comp Metabolic Wsz857 TP RO 7.1 g/dL 01/05/2018 Comp Metabolic Ann387 GL OB 3.0 g/dL 01/05/2018 Comp Metabolic Czl522 A/ G Ratio 1.4 Ratio 01/05/2018 Comp Metabolic Mlw330 Os mo 287 mOsmo 01/05/2018 Free T4 Cdl011 FREE T4 1.05 ng/dL 01/05/2018 %Hba1C Nuv334 % HbA1c 51544-7 6.0 % 01/05/2018 %Hba1C Efu401 Gluc Ave 126 mg/dL 01/05/2018 Cbc With [...] 30.6 pg 01/05/2018 Cbc With Differential Ord2 Stevens% 10.5 % 01/05/2018 Cbc With Differential Ord2 [...] 1.27 K/ul 01/05/2018 Cbc With Differential Ord2 Stevens ABS# 0.5 K/ul 01/05/2018 Cbc With Differential Ord2 Eos ABS# 0.2 K/ul 01/05/2018 Cbc With Differential Ord2 Baso ABS# 0.1 K/ul 01/05/2018 Pt Dav1678 PT 20.7 seconds 01/05/2018 Pt Kgd8974 INR 1.8 01/05/2018 Pt Xbj9540 Low Intensity - 1.5-2.0 01/05/2018 Pt Wdi7431 Mod intensity - 2.0-3.0 01/05/2018 Pt Lrh5133 Hi intensity - 3.0-4.0 01/05/2018 Tsh Ord6 TSH (3rd IS) 2.34 uIU/mL 01/05/2018 Lipid Ord30 CHOL 156 mg/dL 01/05/2018 Lipid Ord30 HDL 48.0 mg/dl 01/05/2018 Lipid Ord30 TRIG 207 mg/dL 01/05/2018 Lipid Ord30 LDL 67 mg/dL 01/05/2018 Lipid Ord30 C/HDL 3.3 Ratio 01/05/2018 Pt Fbe9704 PT 28.3 seconds 11/26/2017 Pt Tla0334 INR 2.6 11/26/2017 Pt Iox9666 Low Intensity - 1.5-2.0 11/26/2017 Pt Rqf9174 Mod intensity - 2.0-3.0 11/26/2017 Pt Esg3185 Hi intensity - 3.0-4.0 11/26/2017 Pt Dxo5929 PT 36.5 seconds 11/19/2017 Pt Trz5218 INR 3.6 11/19/2017 Pt Stp5470 Low Intensity - 1.5-2.0 11/19/2017 Pt Xmr4296 Mod intensity - 2.0-3.0 11/19/2017 Pt Zan5641 Hi intensity - 3.0-4.0 11/19/2017 Pt Zss1075 PT 22.9 seconds 10/15/2017 Pt Huz2082 INR 2.0 10/15/2017 Pt Rql7673 Low Intensity - 1.5-2.0 10/15/2017 Pt Dbe2343 Mod intensity - 2.0-3.0 10/15/2017 Pt Qsh8762 Hi intensity - 3.0-4.0 10/15/2017 Pt Dvl4038 PT 25.9 seconds 10/01/2017 Pt Kia6581 INR 2.4 10/01/2017 Pt Ots1114 Low Intensity - 1.5-2.0 10/01/2017 Pt Kpt0766 Mod intensity - 2.0-3.0 10/01/2017 Pt Dym4399 Hi intensity - 3.0-4.0 10/01/2017 Pt Mkh2609 PT 20.6 seconds 09/24/2017 Pt Zqp8510 INR 1.8 09/24/2017 Pt Rht9255 Low Intensity - 1.5-2.0 09/24/2017 Pt Xnu1093 Mod intensity - 2.0-3.0 09/24/2017 Pt Brj6344 Hi intensity - 3.0-4.0 09/24/2017 Pt Sbh8928 PT 21.0 seconds 09/15/2017 Pt Lrq4094 INR 1.8 09/15/2017 Pt Elv2517 Low Intensity - 1.5-2.0 09/15/2017 Pt Kmu7602 Mod intensity - 2.0-3.0 09/15/2017 Pt Upq2097 Hi intensity - 3.0-4.0 09/15/2017 Pt Jwj4810 PT 19.0 seconds 09/03/2017 Pt Kwc4449 INR 1.6 09/03/2017 Pt Uto2404 Low Intensity - 1.5-2.0 09/03/2017 Pt Jzx5882 Mod intensity - 2.0-3.0 09/03/2017 Pt Jqn4893 Hi intensity - 3.0-4.0 09/03/2017 Pt Fdz8371 PT 17.6 seconds 08/23/2017 Pt Amh9082 INR 1.5 08/23/2017 Pt Hpt4820 Low Intensity - 1.5-2.0 08/23/2017 Pt Mdf6939 Mod intensity - 2.0-3.0 08/23/2017 Pt Zjw9035 Hi intensity - 3.0-4.0 08/23/2017 Pt Bov1405 PT 12.7 seconds 08/20/2017 Pt Qvw5799 INR 1.0 08/20/2017 Pt Mwg9726 Low Intensity - 1.5-2.0 08/20/2017 Pt Yjk7188 Mod intensity - 2.0-3.0 08/20/2017 Pt Jtb7539 Hi intensity - 3.0-4.0 08/20/2017 Pt Yri6812 PT 12.9 seconds 08/17/2017 Pt Ubi7207 INR 1.0 08/17/2017 Pt Qwg6432 Low Intensity - 1.5-2.0 08/17/2017 Pt Zfw3617 Mod intensity - 2.0-3.0 08/17/2017 Pt Wzf2047 Hi intensity - 3.0-4.0 08/17/2017 Pt Zle3768 PT 18.5 seconds 08/10/2017 Pt Pod0022 INR 1.6 08/10/2017 Pt Vct4785 Low Intensity - 1.5-2.0 08/10/2017 Pt Wdm3822 Mod intensity - 2.0-3.0 08/10/2017 Pt Cta6799 Hi intensity - 3.0-4.0 08/10/2017 Tsh Ord6 [...] 29.3 pg 05/27/2017 Cbc With Differential Ord2 Stevens% 8.1 % 05/27/2017 Cbc With Differential Ord2 [...] 1.11 K/ul 05/27/2017 Cbc With Differential Ord2 Stevens ABS# 0.6 K/ul 05/27/2017 Cbc With Differential Ord2 Eos ABS# 0.2 K/ul 05/27/2017 Cbc With Differential Ord2 Baso ABS# 0.1 K/ul 05/27/2017 Pt Nfc8314 PT 28.2 seconds 05/27/2017 Pt Dwd1016 INR 2.6 05/27/2017 Pt Jeh6454 Low Intensity - 1.5-2.0 05/27/2017 Pt Izm4547 Mod intensity - 2.0-3.0 05/27/2017 Pt Xge7998 Hi intensity - 3.0-4.0 05/27/2017 Lipid Ord30 CHOL 167 mg/dL 05/27/2017 Lipid Ord30 HDL 49.0 mg/dl 05/27/2017 Lipid Ord30 TRIG 347 mg/dL 05/27/2017 Lipid Ord30 LDL 49 mg/dL 05/27/2017 Lipid Ord30 C/HDL 3.4 Ratio 05/27/2017 Magnesium Ord90 Mag 1.4 mg/dL 05/27/2017 %Hba1C Acp191 % HbA1c 98211-3 5.9 % 05/27/2017 %Hba1C Hiv012 Gluc Ave 123 mg/dL 05/27/2017 Comp Metabolic Qrl143 NA 138 mEq/L 05/27/2017 Comp Metabolic Qpy154 K 4.1 mEq/L 05/27/2017 Comp Metabolic Vbo940 CL 101 mEq/L 05/27/2017 Comp Metabolic Xpe985 CO2 31.0 mEq/L 05/27/2017 Comp Metabolic Qcp817 AN ION GAP 10 05/27/2017 Comp Metabolic Kkn715 GL UCOSE 117 mg/dL 05/27/2017 Comp Metabolic Tzy316 Cr eat 0.9 mg/dL 05/27/2017 Comp Metabolic Vet377 eG FR 62 ml/min/1.73m2 05/27 Comp Metabolic Srk071 BUN 25 mg/dL 05/27/2017 Comp Metabolic Pop272 B/ C Ratio 26.6 Ratio 05/27/2017 Comp Metabolic Hpm826 CA LCIUM 9.5 mg/dL 05/27/2017 Comp Metabolic Qgz867 AL K PHOS 73 U/L 05/27/2017 Comp Metabolic Llp893 T(SGOT) 18 U/L 05/27/2017 Comp Metabolic Eyr053 AL T(SGPT) 12 U/L 05/27/2017 Comp Metabolic Tne848 BI LI T 0.5 mg/dL 05/27/2017 Comp Metabolic Opj351 AL BUMIN 4.1 g/dL 05/27/2017 Comp Metabolic Wxy256 TP RO 7.1 g/dL 05/27/2017 Comp Metabolic Qvm923 GL OB 3.0 g/dL 05/27/2017 Comp Metabolic Fzv236 A/ G Ratio 1.3 Ratio 05/27/2017 Comp Metabolic Nwt352 Os mo 281 mOsmo 05/27/2017 Free T4 Hfj682 FREE T4 0.91 ng/dL 05/27/2017 Pt Rof0195 PT 29.2 seconds 04/16/2017 Pt Vhe7048 INR 2.7 04/16/2017 Pt Nnt4349 Low Intensity - 1.5-2.0 04/16/2017 Pt Ltt9209 Mod intensity - 2.0-3.0 04/16/2017 Pt Fot6815 Hi intensity - 3.0-4.0 04/16/2017 Pt Hdu9850 PT 30.7 seconds 03/31/2017 Pt Pjd3142 INR 2.9 03/31/2017 Pt Lya5678 Low Intensity - 1.5-2.0 03/31/2017 Pt Vom5434 Mod intensity - 2.0-3.0 03/31/2017 Pt Dmb5253 Hi intensity - 3.0-4.0 03/31/2017 Pt Jtm7333 PT 21.3 seconds 03/26/2017 Pt Zza2886 INR 1.9 03/26/2017 Pt Wcl4851 Low Intensity - 1.5-2.0 03/26/2017 Pt Ejz4203 Mod intensity - 2.0-3.0 03/26/2017 Pt Ild2214 Hi intensity - 3.0-4.0 03/26/2017 Pt Edm4046 PT 19.8 seconds 03/22/2017 Pt Uuo4289 INR 1.7 03/22/2017 Pt Lkx0436 Low Intensity - 1.5-2.0 03/22/2017 Pt Zby7712 Mod intensity - 2.0-3.0 03/22/2017 Pt Rhy4338 Hi intensity - 3.0-4.0 03/22/2017 Pt Zfy6338 PT 15.6 seconds 03/19/2017 Pt Ofj4704 INR 1.3 03/19/2017 Pt Hbh8652 Low Intensity - 1.5-2.0 03/19/2017 Pt Aau8232 Mod intensity - 2.0-3.0 03/19/2017 Pt Nty6518 Hi intensity - 3.0-4.0 03/19/2017 Pt Oap1368 PT 13.7 seconds 03/15/2017 Pt Fwf8325 INR 1.1 03/15/2017 Pt Ntr1488 Low Intensity - 1.5-2.0 03/15/2017 Pt Sgq7427 Mod intensity - 2.0-3.0 03/15/2017 Pt Swu5775 Hi intensity - 3.0-4.0 03/15/2017 Pt Jux0513 PT 25.8 seconds 01/28/2017 Pt Ppy9816 INR 2.4 01/28/2017 Pt Ids4823 Low Intensity - 1.5-2.0 01/28/2017 Pt Bhk4699 Mod intensity - 2.0-3.0 01/28/2017 Pt Qzf9079 Hi intensity - 3.0-4.0 01/28/2017 %Hba1C Xyi799 % HbA1c 84368-4 6.4 % 10/23/2016 %Hba1C Xln200 Gluc Ave 137 mg/dL 10/23/2016 Comp Metabolic Pit861 NA 138 mEq/L 10/23/2016 Comp Metabolic Fwl095 K 3.4 mEq/L 10/23/2016 Comp Metabolic Gfk235 CL 100 mEq/L 10/23/2016 Comp Metabolic Pbh624 CO2 30.0 mEq/L 10/23/2016 Comp Metabolic Wwo194 AN ION GAP 11 10/23/2016 Comp Metabolic Meq532 GL UCOSE 139 mg/dL 10/23/2016 Comp Metabolic Djw239 Cr eat 0.9 mg/dL 10/23/2016 Comp Metabolic Lpj834 eG FR 62 ml/min/1.73m2 10/23 Comp Metabolic Unp384 BUN 22 mg/dL 10/23/2016 Comp Metabolic Azy493 B/ C Ratio 23.4 Ratio 10/23/2016 Comp Metabolic Rqo749 CA LCIUM 8.7 mg/dL 10/23/2016 Comp Metabolic Ibw763 AL K PHOS 66 U/L 10/23/2016 Comp Metabolic Nns918 T(SGOT) 20 U/L 10/23/2016 Comp Metabolic Ort643 AL T(SGPT) 10 U/L 10/23/2016 Comp Metabolic Prb666 BI LI T 0.5 mg/dL 10/23/2016 Comp Metabolic Auk852 AL BUMIN 3.5 g/dL 10/23/2016 Comp Metabolic Mkx697 TP RO 6.3 g/dL 10/23/2016 Comp Metabolic Rin462 GL OB 2.8 g/dL 10/23/2016 Comp Metabolic Nod029 A/ G Ratio 1.3 Ratio 10/23/2016 Comp Metabolic Psj499 Os mo 281 mOsmo 10/23/2016 Pt Akm5899 PT 26.8 seconds 10/23/2016 Pt Euz6473 INR 2.7 10/23/2016 Pt Lnn3888 Low Intensity - 1.5-2.0 10/23/2016 Pt Wle8758 Mod intensity - 2.0-3.0 10/23/2016 Pt Asf3421 Hi intensity - 3.0-4.0 10/23/2016 Pt Cby4917 PT 28.3 seconds 09/25/2016 Pt Gih8513 INR 2.8 09/25/2016 Pt Jyq1327 Low Intensity - 1.5-2.0 09/25/2016 Pt Zqd5196 Mod intensity - 2.0-3.0 09/25/2016 Pt Dnn0161 Hi intensity - 3.0-4.0 09/25/2016 Metabolic Ord15 [...] Metabolic Ord15 CALCIUM 8.8 mg/dL 09/25/2016 Pt Eds4629 PT 30.6 seconds 09/11/2016 Pt Adc2899 INR 3.2 09/11/2016 Pt Pun8449 Low Intensity - 1.5-2.0 09/11/2016 Pt Nss6940 Mod intensity - 2.0-3.0 09/11/2016 Pt Nbz9552 Hi intensity - 3.0-4.0 09/11/2016 Comp Metabolic Utj011 NA 138 mEq/L 09/11/2016 Comp Metabolic Eve845 K 4.4 mEq/L 09/11/2016 Comp Metabolic Jij574 CL 103 mEq/L 09/11/2016 Comp Metabolic Kvv163 CO2 31.0 mEq/L 09/11/2016 Comp Metabolic Cio608 AN ION GAP 8 09/11/2016 Comp Metabolic Gug850 GL UCOSE 146 mg/dL 09/11/2016 Comp Metabolic Jol925 Cr eat 1.0 mg/dL 09/11/2016 Comp Metabolic Pew465 eG FR 60 ml/min/1.73m2 09/11 Comp Metabolic Afm975 BUN 16 mg/dL 09/11/2016 Comp Metabolic Gtz867 B/ C Ratio 16.5 Ratio 09/11/2016 Comp Metabolic Zqo625 CA LCIUM 8.7 mg/dL 09/11/2016 Comp Metabolic Edj922 AL K PHOS 52 U/L 09/11/2016 Comp Metabolic Xcd153 T(SGOT) 19 U/L 09/11/2016 Comp Metabolic Lax253 AL T(SGPT) 11 U/L 09/11/2016 Comp Metabolic Xmq331 BI LI T 0.7 mg/dL 09/11/2016 Comp Metabolic Nlc425 AL BUMIN 3.3 g/dL 09/11/2016 Comp Metabolic Wte636 TP RO 5.8 g/dL 09/11/2016 Comp Metabolic Bwm277 GL OB 2.5 g/dL 09/11/2016 Comp Metabolic Oki915 A/ G Ratio 1.3 Ratio 09/11/2016 Comp Metabolic Bna538 Os mo 280 mOsmo 09/11/2016 C-Reactive Protein Qnt Crqnt CRP 0.1 mg/dl 08/21/2016 Comp Metabolic Syv054 NA 139 mEq/L 08/21/2016 Comp Metabolic Gsm227 K 4.1 mEq/L 08/21/2016 Comp Metabolic Yxt833 CL 102 mEq/L 08/21/2016 Comp Metabolic Cby770 CO2 30.0 mEq/L 08/21/2016 Comp Metabolic Vrs459 AN ION GAP 11 08/21/2016 Comp Metabolic Krj278 GL UCOSE 148 mg/dL 08/21/2016 Comp Metabolic Glx757 Cr eat 1.0 mg/dL 08/21/2016 Comp Metabolic Zaj856 eG FR 55 ml/min/1.73m2 08/21 Comp Metabolic Zcp635 BUN 21 mg/dL 08/21/2016 Comp Metabolic Qdp895 B/ C Ratio 20.2 Ratio 08/21/2016 Comp Metabolic Lxk884 CA LCIUM 9.4 mg/dL 08/21/2016 Comp Metabolic Adt834 AL K PHOS 63 U/L 08/21/2016 Comp Metabolic Qgl039 T(SGOT) 23 U/L 08/21/2016 Comp Metabolic Ake418 AL T(SGPT) 16 U/L 08/21/2016 Comp Metabolic Ujf562 BI LI T 0.6 mg/dL 08/21/2016 Comp Metabolic Mib184 AL BUMIN 3.9 g/dL 08/21/2016 Comp Metabolic Orp265 TP RO 6.8 g/dL 08/21/2016 Comp Metabolic Xef852 GL OB 2.9 g/dL 08/21/2016 Comp Metabolic Bkk541 A/ G Ratio 1.4 Ratio 08/21/2016 Comp Metabolic Kus149 Os mo 283 mOsmo 08/21/2016 Sed Rate Ord21 ESR 16 mm/hr 08/21/2016 Pt Cpt1645 PT 27.2 seconds 08/21/2016 Pt Ncj8322 INR 2.7 08/21/2016 Pt Xql4809 Low Intensity - 1.5-2.0 08/21/2016 Pt Ikl6105 Mod intensity - 2.0-3.0 08/21/2016 Pt Vtd6641 Hi intensity - 3.0-4.0 08/21/2016 Magnesium Ord90 Mag 1.9 mg/dL 08/21/2016 Pt Abe9297 PT 25.9 seconds 06/17/2016 Pt Kpd1578 INR 2.5 06/17/2016 Pt Evp0191 Low Intensity - 1.5-2.0 06/17/2016 Pt Flt8771 Mod intensity - 2.0-3.0 06/17/2016 Pt Arz0952 Hi intensity - 3.0-4.0 06/17/2016 Tsh Ord6 hTSH II 2.13 uIU/mL 06/08/2016 Free T4 Oml179 FREE T4 0.79 ng/dL 06/08/2016 Cbc With [...] 26.8 pg 06/08/2016 Cbc With Differential Ord2 Stevens% 12.0 % 06/08/2016 Cbc With Differential Ord2 [...] 1.40 K/ul 06/08/2016 Cbc With Differential Ord2 Stevens ABS# 0.7 K/ul 06/08/2016 Cbc With Differential Ord2 Eos ABS# 0.3 K/ul 06/08/2016 Cbc With Differential Ord2 Baso ABS# 0.1 K/ul 06/08/2016 %Hba1C Syy284 % HbA1c 45218-8 6.2 % 06/08/2016 %Hba1C Dco181 Gluc Ave 131 mg/dL 06/08/2016 Comp Metabolic Tbj248 NA 138 mEq/L 06/08/2016 Comp Metabolic Flx508 K 3.9 mEq/L 06/08/2016 Comp Metabolic Gft174 CL 105 mEq/L 06/08/2016 Comp Metabolic Xvl166 CO2 27.0 mEq/L 06/08/2016 Comp Metabolic Pyl512 AN ION GAP 10 06/08/2016 Comp Metabolic Oik714 GL UCOSE 127 mg/dL 06/08/2016 Comp Metabolic Wof408 Cr eat 1.0 mg/dL 06/08/2016 Comp Metabolic How469 eG FR 59 ml/min/1.73m2 06/08 Comp Metabolic Pvc948 BUN 19 mg/dL 06/08/2016 Comp Metabolic Omu074 B/ C Ratio 19.4 Ratio 06/08/2016 Comp Metabolic Lsm415 CA LCIUM 9.2 mg/dL 06/08/2016 Comp Metabolic Pqb081 AL K PHOS 77 U/L 06/08/2016 Comp Metabolic Yqz649 T(SGOT) 19 U/L 06/08/2016 Comp Metabolic Uxu863 AL T(SGPT) 13 U/L 06/08/2016 Comp Metabolic Rjd368 BI LI T 0.5 mg/dL 06/08/2016 Comp Metabolic Lia199 AL BUMIN 3.8 g/dL 06/08/2016 Comp Metabolic Vvz930 TP RO 6.6 g/dL 06/08/2016 Comp Metabolic Wop489 GL OB 2.8 g/dL 06/08/2016 Comp Metabolic Jfu914 A/ G Ratio 1.4 Ratio 06/08/2016 Comp Metabolic Ytn385 Os mo 280 mOsmo 06/08/2016 Pt Vqg0077 PT 36.1 seconds 06/08/2016 Pt Vnh7208 INR 3.9 06/08/2016 Pt Xeb7558 Low Intensity - 1.5-2.0 06/08/2016 Pt Fzi2931 Mod intensity - 2.0-3.0 06/08/2016 Pt Nmj7000 Hi intensity - 3.0-4.0 06/08/2016 Lipid Ord30 CHOL 149 mg/dL 06/08/2016 Lipid Ord30 HDL 46.0 mg/dl 06/08/2016 Lipid Ord30 TRIG 279 mg/dL 06/08/2016 Lipid Ord30 LDL 47 mg/dL 06/08/2016 Lipid Ord30 C/HDL 3.2 Ratio 06/08/2016 Pt Hyr2343 PT 30.9 seconds 02/12/2016 Pt Yig0835 INR 3.2 02/12/2016 Pt Zdn2071 Low Intensity - 1.5-2.0 02/12/2016 Pt Qvz6279 Mod intensity - 2.0-3.0 02/12/2016 Pt Axw2644 Hi intensity - 3.0-4.0 02/12/2016 Free T4 Ozl205 FREE T4 1.24 ng/dL 09/27/2015 %Hba1C Fjc546 % HbA1c 70591-9 6.4 % 09/27/2015 %Hba1C Ter289 Gluc Ave 137 mg/dL 09/27/2015 Tsh Ord6 hTSH II 0.37 uIU/mL 09/27/2015 Pt Wiw9530 PT 26.2 seconds 09/27/2015 Pt Rdi3226 INR 2.5 09/27/2015 Pt Wbe7895 Low Intensity - 1.5-2.0 09/27/2015 Pt Yve9213 Mod intensity - 2.0-3.0 09/27/2015 Pt Osd2323 Hi intensity - 3.0-4.0 09/27/2015 Pt Rzc4456 PT 27.6 seconds 2015 Pt Zmf9019 INR 2.7 2015 Pt Yjl3049 Low Intensity - 1.5-2.0 2015 Pt Dty3660 Mod intensity - 2.0-3.0 2015 Pt Ouk7974 Hi intensity - 3.0-4.0 2015 %Hba1C Jly125 % HbA1c 25936-5 6.1 % 06/11/2015 %Hba1C Itz487 Gluc Ave 128 mg/dL 06/11/2015 Cbc With [...] Ord2 RDW 15.8 % 06/10/2015 Comp Metabolic Gmu357 NA 139 mEq/L 06/10/2015 Comp Metabolic Swy573 K 4.1 mEq/L 06/10/2015 Comp Metabolic Ynj906 CL 105 mEq/L 06/10/2015 Comp Metabolic Rxu850 CO2 27.0 mEq/L 06/10/2015 Comp Metabolic Bhf831 AN ION GAP 11 06/10/2015 Comp Metabolic Pyw483 GL UCOSE 127 mg/dL 06/10/2015 Comp Metabolic Dvn420 Cr eat 1.0 mg/dL 06/10/2015 Comp Metabolic Phv743 eG FR 59 ml/min/1.73m2 06/10 Comp Metabolic Kos561 BUN 21 mg/dL 06/10/2015 Comp Metabolic Qui507 B/ C Ratio 21.2 Ratio 06/10/2015 Comp Metabolic Xtu182 CA LCIUM 9.2 mg/dL 06/10/2015 Comp Metabolic Cuj252 AL K PHOS 87 U/L 06/10/2015 Comp Metabolic Kwh093 T(SGOT) 20 U/L 06/10/2015 Comp Metabolic Xch606 AL T(SGPT) 17 U/L 06/10/2015 Comp Metabolic Yyu836 BI LI T 0.4 mg/dL 06/10/2015 Comp Metabolic Ods109 AL BUMIN 4.1 g/dL 06/10/2015 Comp Metabolic Nzp802 TP RO 7.2 g/dL 06/10/2015 Comp Metabolic Mil990 GL OB 3.1 g/dL 06/10/2015 Comp Metabolic Ycq389 A/ G Ratio 1.3 Ratio 06/10/2015 Comp Metabolic Dzr373 Os mo 282 mOsmo 06/10/2015 Tsh Ord6 hTSH II 0.86 uIU/mL 06/10/2015 Lipid Ord30 CHOL 161 mg/dL 06/10/2015 Lipid Ord30 HDL 49.0 mg/dl 06/10/2015 Lipid Ord30 TRIG 208 mg/dL 06/10/2015 Lipid Ord30 LDL 70 mg/dL 06/10/2015 Lipid Ord30 C/HDL 3.3 Ratio 06/10/2015 Pt Nuf1384 PT 25.0 seconds 04/09/2015 Pt Gxt4142 INR 2.4 04/09/2015 Pt Pln8954 Low Intensity - 1.5-2.0 04/09/2015 Pt Chv0393 Mod intensity - 2.0-3.0 04/09/2015 Pt Lrx9411 Hi intensity - 3.0-4.0 04/09/2015 Free T4 Zbc695 FREE T4 1.05 ng/dL 01/22/2015 Pt Fkf3807 PT 27.2 seconds 01/22/2015 Pt Ske7689 INR 2.6 01/22/2015 Pt Kyo9550 Low Intensity - 1.5-2.0 01/22/2015 Pt Mcb6887 Mod intensity - 2.0-3.0 01/22/2015 Pt Ryv9267 Hi intensity - 3.0-4.0 01/22/2015 Cbc With [...] Differential Ord2 RDW 15.2 % 01/22/2015 B12 Npx001 B12 402.00 pg/ml 01/22/2015 Tsh Ord6 hTSH II 0.65 uIU/mL 01/22/2015 Lipid Ord30 CHOL 166 mg/dL 01/22/2015 Lipid Ord30 HDL 48.0 mg/dl 01/22/2015 Lipid Ord30 TRIG 264 mg/dL 01/22/2015 Lipid Ord30 LDL 65 mg/dL 01/22/2015 Lipid Ord30 C/HDL 3.5 Ratio 01/22/2015 Comp Metabolic Kts046 NA 138 mEq/L 01/22/2015 Comp Metabolic Apb494 K 4.1 mEq/L 01/22/2015 Comp Metabolic Chw236 CL 104 mEq/L 01/22/2015 Comp Metabolic Nhy447 CO2 29.0 mEq/L 01/22/2015 Comp Metabolic Eak507 AN ION GAP 9 01/22/2015 Comp Metabolic Wen215 GL UCOSE 106 mg/dL 01/22/2015 Comp Metabolic Koa760 Cr eat 0.9 mg/dL 01/22/2015 Comp Metabolic Otn057 eG FR 63 ml/min/1.73m2 01/22 Comp Metabolic Znu467 BUN 21 mg/dL 01/22/2015 Comp Metabolic Vll358 B/ C Ratio 22.3 Ratio 01/22/2015 Comp Metabolic Rvy481 CA LCIUM 9.4 mg/dL 01/22/2015 Comp Metabolic Jmi758 AL K PHOS 83 U/L 01/22/2015 Comp Metabolic Ses791 T(SGOT) 23 U/L 01/22/2015 Comp Metabolic Hbn270 AL T(SGPT) 18 U/L 01/22/2015 Comp Metabolic Fqa642 BI LI T 0.8 mg/dL 01/22/2015 Comp Metabolic Uzn235 AL BUMIN 4.2 g/dL 01/22/2015 Comp Metabolic Enl987 TP RO 7.3 g/dL 01/22/2015 Comp Metabolic Aum112 GL OB 3.1 g/dL 01/22/2015 Comp Metabolic Ieq737 A/ G Ratio 1.4 Ratio 01/22/2015 Comp Metabolic Hst701 Os mo 279 mOsmo 01/22/2015 Review of [...] Procedure Codes Date THER/PROPH/DIAG INJ SC/IM CPT-4: 60076 09/02/2018 TRIAMCINOLONE ACET I [place] NOS CPT-4: J3301 09/02/2018 URINALYSIS NONAUTO W /O SCOPE CPT-4: 58573 03/05/2017 Vital Signs Date Vital 09/02/2018 Blood Pressure 1: 128/72 Code: 8480-6 BMI: 38.2 Code: 28428-4 Heart Rate 1: 80 bpm Height: 5'1" SpO2: 98% Weight: 202 lbs 04/14/2018 Blood Pressure 1: 116/78 Code: 8480-6 BMI: 41.6 Code: 67750-9 Heart Rate 1: 72 bpm Height: 5'1" SpO2: 98% Weight: 220 lbs 01/18/2018 Blood Pressure 1: 132/74 Code: 8480-6 BMI: 43.5 Code: 26661-1 Heart Rate 1: 70 bpm Height: 5'1" SpO2: 97% Weight: 230 lbs 01/04/2018 Blood Pressure 1: 134/76 Code: 8480-6 BMI: 42.7 Code: 71094-0 Heart Rate 1: 83 bpm Height: 5'1" SpO2: 98% Weight: 226 lbs 09/23/2017 Blood Pressure 1: 124/76 Code: 8480-6 BMI: 42.3 Code: 41065-2 Heart Rate 1: 94 bpm Height: 5'1" SpO2: 96% Weight: 224 lbs 05/27/2017 Blood Pressure 1: 146/78 Code: 8480-6 BMI: 41.4 Code: 88107-3 Heart Rate 1: 85 bpm Height: 5'1" SpO2: 98% Weight: 219 lbs 02/24/2017 Blood Pressure 1: 138/66 Code: 8480-6 BMI: 41.4 Code: 13300-5 Heart Rate 1: 78 bpm Height: 5'1" SpO2: 97% Weight: 219 lbs 11/02/2016 Blood Pressure 1: 144/72 Code: 8480-6 BMI: 46.1 Code: 80688-6 Heart Rate 1: 78 bpm Height: 5'1" SpO2: 98% Weight: 244 lbs 09/30/2016 Blood Pressure 1: 130/76 Code: 8480-6 BMI: 45.0 Code: 26368-6 Heart Rate 1: 86 bpm Height: 5'1" SpO2: 98% Weight: 238 lbs 09/10/2016 Blood Pressure 1: 136/68 Code: 8480-6 BMI: 46.3 Code: 76829-2 Heart Rate 1: 83 bpm Height: 5'1" SpO2: 98% Weight: 245 lbs 08/20/2016 Blood Pressure 1: 142/78 Code: 8480-6 BMI: 45.3 Code: 41689-7 Heart Rate 1: 84 bpm Height: 5'1" SpO2: 99% Weight: 240 lbs 06/08/2016 Blood Pressure 1: 134/76 Code: 8480-6 BMI: 44.2 Code: 89216-2 Heart Rate 1: 86 bpm Height: 5'1" SpO2: 96% Weight: 234 lbs 04/02/2016 Blood Pressure 1: 142/70 Code: 8480-6 BMI: 44.6 Code: 79500-0 Heart Rate 1: 78 bpm Height: 5'1" SpO2: 97% Weight: 236 lbs 01/14/2016 Blood Pressure 1: 146/72 Code: 8480-6 BMI: 44.2 Code: 80879-8 Heart Rate 1: 86 bpm Height: 5'1" SpO2: 96% Weight: 234 lbs 10/02/2015 Blood Pressure 1: 158/76 Code: 8480-6 BMI: 44.2 Code: 15956-8 Heart Rate 1: 67 bpm Height: 5'1" SpO2: 97% Weight: 234 lbs 07/15/2015 Blood Pressure 1: 200/90 Code: 8480-6 Blood Pressure 1: 148/78 Code: 8480-6 BMI: 44.0 Code: 39849-1 Heart Rate 1: 89 bpm Height: 5'1" SpO2: 97% Weight: 233 lbs 06/10/2015 Blood Pressure 1: 140/82 Code: 8480-6 BMI: 44.0 Code: 84274-2 Heart Rate 1: 78 bpm Height: 5'1" [...] wearing crocs and there was a new nepali on the floor: her foot didn't move [...] Encounters Encounter Performer Loca tion Codes Date [id number] EST. PATIENT, LEVEL IV Diagnosis: Other acute sinusitis[ICD10: J01.80] Diagnosis: Other allergic rhinitis[ICD10: J30.89] Nata Almanza MD, [facility] CPT-4: 45620 09/02/2018 ([id number]) 40855 EST. P ATIENT, LEVEL IV Diagnosis: Essential (primary) hypertension[ICD10: I10] Diagnosis: Hypothyroidism, unspecified[ICD10: E03.9] Diagnosis: Impaired fasting glucose[ICD10: R73.01] Diagnosis: 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[ICD10: Z79.01] Edna Almanza MD, [facility] CPT-4: 97453 04/14/2018 ([id number]) 61031 EST. P ATIENT, LEVEL III Diagnosis: Localized edema[ICD10: R60.0] Diagnosis: Gastro-esophageal reflux disease without esophagitis[ICD10: K21.9] Edna Almanza MD, [facility] CPT-4: 62095 01/18/2018 ([id number]) 10425 EST. P ATIENT, LEVEL IV Diagnosis: Gastro-esophageal reflux disease without esophagitis[ICD10: K21.9] Diagnosis: Localized edema[ICD10: R60.0] Diagnosis: Essential (primary) hypertension[ICD10: I10] Diagnosis: Hypothyroidism, unspecified[ICD10: E03.9] Diagnosis: Impaired fasting glucose[ICD10: R73.01] Edna Almanza MD, [facility] CPT-4: 57288 01/04/2018 ([id number]) 21592 EST. P ATIENT, LEVEL IV Diagnosis: Essential (primary) hypertension[ICD10: I10] Diagnosis: 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[ICD10: Z79.01] Diagnosis: Incisional hernia without obstruction or gangrene[ICD10: K43.2] Diagnosis: Right lower quadrant pain[ICD10: R10.31] Sarai Almanza MD, [facility] CPT-4: 04034 09/23/2017 ([id number]) 75168 EST. P ATIENT, LEVEL IV Diagnosis: Essential (primary) hypertension[ICD10: I10] Diagnosis: Mixed hyperlipidemia[ICD10: E78.2] Diagnosis: Hypothyroidism, unspecified[ICD10: E03.9] Diagnosis: Impaired fasting glucose[ICD10: R73.01] Diagnosis: 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[ICD10: Z79.01] Edna Almanza MD, [facility] CPT-4: 43041 05/27/2017 61808 EST. PATIENT, LEVEL III Diagnosis: Pain in right hip[ICD10: M25.551] Nata Almanza MD, [facility] CPT-4: 11963 02/24/2017 ([id number]) 85300 EST. P ATIENT, LEVEL IV Diagnosis: Essential (primary) hypertension[ICD10: I10] Diagnosis: Localized edema[ICD10: R60.0] Diagnosis: Pain in right hip[ICD10: M25.551] Sarai Almanza MD, [facility] CPT-4: 20288 11/02/2016 ([id number]) 00178 EST. P ATIENT, LEVEL IV Diagnosis: Essential (primary) hypertension[ICD10: I10] Diagnosis: Localized edema[ICD10: R60.0] Sarai Almanza MD, [facility] CPT-4: 60196 09/30/2016 43179 EST. PATIENT, LEVEL IV Diagnosis: Localized edema[ICD10: R60.0] Diagnosis: Pain in joints of left hand[ICD10: M25.542] Diagnosis: Pain in joints of right hand[ICD10: M25.541] Nata Almanza MD, [facility] CPT-4: 95853 09/10/2016 [id number] EST. PATIENT, LEVEL IV Diagnosis: Localized edema[ICD10: R60.0] Diagnosis: Pain in joints of left hand[ICD10: M25.542] Diagnosis: Pain in joints of right hand[ICD10: M25.541] Diagnosis: Other fatigue[ICD10: R53.83] Nata Almanza MD, [facility] CPT-4: 27631 08/20/2016 46691 EST. PATIENT, LEVEL IV Diagnosis: Essential (primary) hypertension[ICD10: I10] Diagnosis: Other joint terminal attack controller (current) drug therapy[ICD10: Z79.899] Diagnosis: Tinnitus, bilateral[ICD10: H93.13] Nata Almanza MD, [facility] CPT-4: 80729 06/08/2016 99423 EST. PATIENT, LEVEL IV Diagnosis: Other allergic rhinitis[ICD10: J30.89] Diagnosis: Acute laryngopharyngitis[ICD10: J06.0] Nata Almanza MD, [facility] CPT-4: 73746 04/02/2016 40626 EST. PATIENT, LEVEL IV Diagnosis: Left upper quadrant pain[ICD10: R10.12] Nata Almanza MD, [facility] CPT-4: 80090 01/14/2016 77978 EST. PATIENT, LEVEL IV Diagnosis: Pain in left shoulder[ICD10: M25.512] Diagnosis: Body mass index (BMI) 40.0-44.9, adult[ICD10: Z68.41] Nata Almanza MD, [facility] CPT-4: 85585 10/02/2015 77910 EST. PATIENT, LEVEL IV Diagnosis: Pain in left leg[ICD10: M79.605] Diagnosis: Other shelter (current) drug therapy[ICD10: Z79.899] Nata Almanza MD, [facility] CPT-4: 66533 07/15/2015 ([id number]) 22305 EST. 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: Other joint terminal attack controller (current) drug therapy[ICD10: Z79.899] [facility] CPT-4: 21367 06/10/2015 ([id number]) OFFICE VISI T, NEW - LEVEL 4 Diagnosis: ESSENTIAL HYPERTENSION[ICD9: 401.9] Diagnosis: HYPOTHYROIDISM[ICD9: 244.9] Diagnosis: ENCNTR LONG-RX USE NEC[ICD9: V58.69] Diagnosis: HYPERLIPIDEMIA[ICD9: 272.4] Diagnosis: Vitamin B12 deficiency[ICD9: 266.2] Diagnosis: Status post gastric surgery[ICD9: V45.89] Diagnosis: Snoring[ICD9: 786.09] Sarai Almanza MD, [facility] CPT-4: 04734 01/22/2015 Plan of Care Planned Activity Notes [...] allergy spray. 09/02/2018 Appointment: Nata Hsu WPtel: [facility] [facility] (15 min) Moderate 09/02/2018 Patient Education: [...] Edna Douglas WPtel: [facility] [phone] (15 min) Moderate 04/14/2018 Patient Education: [...] to further attempt to reduce peripheral edema. KGSM-onoyficn-llqyvowc prilosec BID and carafate QID -discussed low spice, low acidic diet 01/18/2018 Appointment: Edna Douglas WPtel: [facility] [phone] [place] (15 min) Moderate 01/18/2018 Patient Education: [...] control. 01/04/2018 [facility]ment[phone] [phone] (30 min) Complex 01/04/2018 Patient Education: Patient Medication Summary Completed 01/04/2018 Care Plan: SCREENINGMAMMOGRAPHYDIGITAL LOINC : 54319-1 Pending 01/04/2018 Visit Plan: Abdominal hernia - not able to be taken to surgery by local providers and pt has been seen at [facility] and that surgeon felt [...] medications. 05/27/2017 Appointment: Edna Douglas WPtel: [phone] [phone] (30 min) Complex 05/27/2017 Patient Education: [...] [place]. 02/24/2017 Appointment: [facility]el[phone] [facility] (30 min) Complex 02/24/2017 Patient Education: Patient [...] [place]. 11/02/2016 [phone] (15 min) Moderate 11/02/2016 [...] edema. 09/30/2016 Appointment: Sarai Almanza WPtel: [phone] [facility] (15 min) Moderate 09/30/2016 Patient Education: [...] edema. 09/10/2016 Appointment: [facility]su [facility]Ptel[facility] [phone] [facility] (30 min) Complex 09/10/2016 Patient [...] edema. 08/20/2016 Appointment: [facility]su [facility]Ptel[facility] [phone] [facility] (30 min) Complex 08/20/2016 Patient Education: Patient Medication Summary Completed 08/20/2016 [facility] Ref[facility] Initiated 07/02/2016 Visit Plan: Chronic Anticoagulant [...] 06/08/2016 Care Plan: Referral Order SNOMED-CT : [id number] Pending 06/08/2016 Visit Plan: URI - Pt [...] spray. 04/02/2016 Appointment: [facility]su [facility]el[facility] [phone] [facility] (30 min) Complex 04/02/2016 Patient [...] Edna Douglas WPtel: [phone] (30 min) Complex 01/14/2016 Patient Education: Patient Medication Summary Completed 01/14/2016 Patient Education: Obesity Completed 01/14/2016 Care Plan: BMI Above normal followup DAVID F-MGMT EDUC & TRAIN 1 PT Pending 10/24/2015 Care Plan: X-RAY EXAM OF SHOULDER LOINC : 40954-3 Pending 10/24/2015 Visit Plan: Left shoulder pain [...] Edna Douglas WPtel: [phone] (15 min) Moderate 10/02/2015 Patient [...] Sarai Alman[facility]Ptel[facility] (15 min) Moderate 04/22/2015 [...] medications. 01/22/2015 App[facility]ment: [phone] [place] New Patient 01/22/2015 Patient Education: Patient Medication Summary Completed 01/22/2015 Patient Education: Hypertension Completed 01/22/2015 [facility] Referral Initiated Instructions Comment . [...] and pt has been seen at [facility] and that surgeon felt [...] to further attempt to reduce peripheral edema. XYWM-nkmrvdem-kjymomja prilosec BID and carafate QID -discussed low [...]
--- OUTSIDE RECORDS SUMMARY | 2020-01-16 23:19 | XMS REPORT | CCD ---
Author Author Kat Almanza Organization Sarai Almanza MD, [facility] Address [address] [place] [address] Phone Care Team Providers Care Seat Joiner Chainstitch Name Role Phone PP Unavailable CCM Unavailable Summary Purpose Interface Exchange Insurance Providers Payer name Policy type / Coverage type Covered republican ID Effective Begin Date Effective End Date WPS Medicare Part B Medicare Part B [id number] 2017 Unknown [employer] [place] Medicare Part B [id number] 2017 Unknown Family history Father Diagnosis Age At Onset Hyperlipidemia Unknown Heart Attack Unknown Mother Diagnosis Age At Onset Arthritis Unknown Social History Social History Element Codes Description Effective Dates Marital status Unknown M arried Nathan 09/30/2016 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 Number of children Unknown 3 01/22/[address]: 605207237 Never smoker 01/22/[address]: 630475913 Never drinks alcohol 01/22/2015 Allergies, Adverse Reactions, Alerts Substance Reaction Codes Entered Date Inactivated Date Status * NO KNOWN DRUG ORIN RGIES Unknown 01/22/2015 No Inactive Date Active Past Medical History Illness Codes Condition Status Onset Date Resolved Date Hypothyroidism, unsp ecified ICD-9: 244.9 ICD-10: E03.9 Active 05/27/2017 Unknown [facility] (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 ICD-9: V58.61 ICD-10: [...] ICD-9: 244.9 ICD-10: E03.9 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 ICD-9: V58.61 ICD-10: [...] E R 20 mEq tablet,extended release RxNorm: 860692 1 Tablet(s) PO daily 09/02/2018 12/30/2018 Active Plavix 75 mg tablet RxNorm: 014970 TAKE ONE TABLET BY MOUTH DAILY 09/02/2018 02/28/2019 Ac tive Keflex 500 mg capsule RxNorm: 930219 1 Capsule(s) PO TID 09/02/2018 09/08/2018 Active prednisone 10 mg tablet RxNorm: 972212 Tablet(s) PO 09/02/2018 No Stop Date Active 60,60,50,50,40,40,30,30,20,20,10,10 Synthroid 125 mcg ta blet RxNorm: 770048 1 Tablet(s) PO daily 09/02/2018 08/27/2019 Active potassium chloride E R 20 mEq tablet,extended release RxNorm: 031386 1 Tablet(s) PO daily 09/02/2018 09/01/2018 Inactive Synthroid 125 mcg ta blet RxNorm: 588111 1 Tablet(s) PO daily 09/02/2018 09/01/2018 Inactive Kenalog 40 mg/mL maxine pension for injection RxNorm: 2038659 Milliliter(s) Inj 09/02/2018 09/02/2018 In active Lipitor 40 mg tablet RxNorm: 208466 TAKE ONE TABLET BY MOUTH DAILY 07/29/2018 07/23/2019 Ac tive Coumadin 1 mg tablet RxNorm: 504206 TAKE ONE TABLET BY MOUTH DAILY 07/29/2018 10/26/2018 Ac tive Carafate 1 gram tablet RxNorm: 812189 TAKE ONE TABLET BY MOUTH BEFORE MEALS AN D AT BEDTIME 07/28/2018 09/17/2018 Active Coumadin 4 mg tablet RxNorm: 216573 2 Tablet(s) daily 07/11/2018 02/05/2019 Active Generi c For:COUMADIN 4MG 07/22/2017 8:58:26 AM Coumadin 5 mg tablet RxNorm: 416554 Tablet(s) TAKE 1 TABLET BY MOUTH DIRE CTED 07/08/2018 01/03/2019 Ac tive Generic For:COUMADIN 5MG TAB 03/21/2018 9:13:00 AM Coumadin 4 mg tablet RxNorm: 498825 Tablet(s) TAKE 1 TABLET BY MOUTH THREE T IMES PER WEEK (WEDNESDAY, WEDNESDAY AND WEDNESDAY) 07/08/2018 07/10/2018 Inactive Gene andre For:COUMADIN 4MG 07/22/2017 8:58:26 AM Coumadin 1 mg tablet RxNorm: 810308 1 Tablet(s) PO daily 07/08/2018 08/06/2018 Inactive venlafaxine ER 75 mg capsule,extended release 24 hr RxNorm: 548725 Capsule(s) TAKE 1 CAPSULE BY MOUTH ONCE DAILY 06/23/2018 06/17/2019 Active Generic For:*EFFEXOR XR 75MG 06/19/2017 12:23:45 PM sodium bicarbonate 6 50 mg tablet RxNorm: 914791 Tablet(s) TAKE 2 TABL ETS BY MOUTH TWICE DAILY 06/23/2018 12/19/2018 Active 12/20/2017 9:10:59 AM Coumadin 1 mg tablet RxNorm: 854668 1 Tablet(s) PO daily 06/17/2018 07/07/2018 Inactive Coumadin 1 mg tablet RxNorm: 978242 1 Tablet(s) PO daily 06/17/2018 06/16/2018 Inactive clonazepam 0.5 mg ta blet RxNorm: 329969 1 Tablet(s) PO BID 06/08/2018 11/04/2018 Active spironolactone 25 mg tablet RxNorm: 836147 TAKE 1 TABLET BY MOUT H EVERY DAY 05/18/2018 05/12/2019 Ac tive Generic For:*ALDACTONE 25MG 05/18/2018 8:57:50 AM Carafate 1 gram tablet RxNorm: 628852 TAKE ONE TABLET BY MOUTH BEFORE MEALS AN D AT BEDTIME 05/18/2018 07/12/2018 Inactive Generic For:CARAFATE 1GM 1 07/18/2017 8:38:28 AM Synthroid 137 mcg ta blet RxNorm: 781009 TAKE 1 TABLET BY MOUT H ONCE DAILY 05/18/2018 08/30/2018 In active Generic For:SYNTHROID 137MCG TAB 2017 8:57:54 AM allopurinol 300 mg t ablet RxNorm: 455196 TAKE 1 TABLET BY MOUT H ONCE DAILY. 04/18/2018 10/14/2018 Ac tive Generic For:ZYLOPRIM 300 MG TABLET 03/22 9:13:47 AM Lasix 20 mg tablet RxNorm: 707828 TAKE ONE TABLET BY MOUTH DAILY 04/18/2018 08/15/2018 In active Generic For:LASIX 20MG 04/18/2018 9:13: 50 AM Carafate 1 gram tablet RxNorm: 807996 TAKE ONE TABLET BY MOUTH BEFORE MEALS AN D AT BEDTIME 04/18/2018 05/17/2018 Inactive Generic For:CARAFATE 1GM 1 9:32:51 AM Coumadin 5 mg tablet RxNorm: 157796 TAKE 1 TABLET BY MOUTH DIRECTED 03/21/2018 07/07/2018 In active Generic For:COUMADIN 5MG TAB 03/21/2018 9:13:00 AM Carafate 1 gram tablet RxNorm: 278169 TAKE ONE TABLET BY MOUTH BEFORE MEALS AN D AT BEDTIME 03/21/2018 04/17/2018 Inactive Generic For:CARAFATE 1GM 1 9:14:24 AM Carafate 1 gram tablet RxNorm: 492297 1 Tablet(s) PO AC & HS 02/17/2018 03/20/2018 Inactive atenolol 100 mg tablet RxNorm: 944101 1 Tablet(s) PO daily 02/04/2018 09/01/2018 Inactive atenolol 50 mg tablet RxNorm: 874612 1 Tablet(s) PO daily 02/03/2018 02/03/2018 Inactive omeprazole 20 mg cap sean,delayed release RxNorm: 655605 1 Capsule(s) BID 01/21/2018 01/15/2019 Ac tive Generic For:PRILOSEC 20MG 07/22/2017 8:5 8:20 AM Carafate 1 gram tablet RxNorm: 582336 1 Tablet(s) PO AC & HS 01/21/2018 02/16/2018 Inactive Carafate 1 gram tablet RxNorm: 936561 1 Tablet(s) PO AC & HS 01/18/2018 01/20/2018 Inactive Carafate 1 gram tablet RxNorm: 153575 1 Tablet(s) PO AC & HS 01/18/2018 02/27/2018 Inactive Carafate 1 gram tablet RxNorm: 888444 1 Tablet(s) PO AC & HS TAKE ONE TABLET B Y MOUTH TWICE DAILY 01/18/2018 05/17/2018 Inactive Generic For:CARAFATE 1GM 0 12/20/2017 9:10:56 AM omeprazole 20 mg cap sean,delayed release RxNorm: 623487 Capsule(s) TAKE 1 CAP SEAN BY MOUTH EVERY DAY 01/17/2018 01/20/2018 Inactive Generic For:PRILOSEC 20MG 0 07/22/2017 8:58:20 AM omeprazole 20 mg cap sean,delayed release RxNorm: 619238 Capsule(s) TAKE 1 CAP SEAN BY MOUTH EVERY DAY 01/14/2018 01/16/2018 Inactive Generic For:PRILOSEC 20MG 07/22/2017 8:58:20 AM clonazepam 0.5 mg ta blet RxNorm: 246988 1 Tablet(s) PO BID 01/07/2018 06/05/2018 Inactive Plavix 75 mg tablet RxNorm: 458888 1 Tablet(s) PO daily 01/07/2018 07/05/2018 Inactive Carafate 1 gram tablet RxNorm: 236373 1 Tablet(s) PO AC & HS 01/04/2018 01/17/2018 Inactive Lasix 20 mg tablet RxNorm: 484149 TAKE ONE TABLET BY MOUTH DAILY 12/20/2017 04/17/2018 In active Generic For:LASIX 20MG 12/20/2017 9:11: 03 AM sodium bicarbonate 6 50 mg tablet RxNorm: 332337 TAKE 2 TABLETS BY JAVON TH TWICE DAILY 12/20/2017 06/17/2018 In active 12/20/2017 9:10:59 AM Carafate 1 gram tablet RxNorm: 908570 TAKE ONE TABLET BY MOUTH TWICE DAILY 12/20/2017 01/17/2018 In active Generic For:CARAFATE 1GM 12/20/2017 9:1 0:56 AM Synthroid 137 mcg ta blet RxNorm: 958936 TAKE 1 TABLET BY MOUT H ONCE DAILY 11/19/2017 05/17/2018 In active Generic For:SYNTHROID 137MCG TAB 2017 8:58:04 AM Detrol LA 4 mg capsu le,extended release RxNorm: 958692 TAKE 1 CAPSULE BY JAVON TH ONCE DAILY 10/20/2017 04/13/2018 Inactive Generic For:DETROL LA 4MG C AP 10/20/2017 9:01:56 AM allopurinol 300 mg t ablet RxNorm: 051454 TAKE 1 TABLET BY MOUT H ONCE DAILY. 10/20/2017 04/17/2018 In active Generic For:ZYLOPRIM 300 MG TABLET 07/2017 9:01:59 AM Coumadin 5 mg tablet RxNorm: 574543 1 Tablet(s) PO UD 10/01/2017 03/20/2018 Inactive cyclobenzaprine 5 mg tablet RxNorm: 923975 1 Tablet(s) PO TID as needed myscle spasm 09/23/2017 10/12/2017 Inactive Lipitor 40 mg tablet RxNorm: 225292 TAKE 1 TABLET BY MOUTH ONCE DAILY 09/20/2017 07/28/2018 In active Generic For:LIPITOR 40MG 09/20/2017 8:5 6:04 AM atenolol 100 mg tablet RxNorm: 392387 1 Tablet(s) PO daily 08/30/2017 02/03/2018 Inactive atenolol 50 mg tablet RxNorm: 515594 1 Tablet(s) PO daily 08/30/2017 08/30/2017 Inactive Lovenox 30 mg/0.3 mL subcutaneous syringe RxNorm: 030996 0.3 Milliliter(s) SQ Q12H 08/24/2017 09/06/2017 In active Lasix 20 mg tablet RxNorm: 390321 TAKE ONE TABLET BY MOUTH DAILY 08/23/2017 12/19/2017 In active Generic For:LASIX 20MG 08/21/2017 9:04: 27 AM Synthroid 137 mcg ta blet RxNorm: 679619 TAKE 1 TABLET BY MOUT H ONCE DAILY 08/23/2017 11/18/2017 In active Generic For:SYNTHROID 137MCG TAB 2017 9:04:30 AM Lovenox 30 mg/0.3 mL subcutaneous syringe RxNorm: 423349 0.3 Milliliter(s) SQ Q12H 08/10/2017 08/23/2017 In active clonazepam 0.5 mg ta blet RxNorm: 011778 1 Tablet(s) PO BID 08/04/2017 12/30/2017 Inactive Coumadin 4 mg tablet RxNorm: 731348 TAKE 1 TABLET BY MOUTH THREE TIMES PER [place] (WEDNESDAY, WEDNESDAY AND WEDNESDAY) 07/22/2017 02/16/2018 Inactive Generic For:COUMADIN 4MG 07/22/2017 8:58:26 AM omeprazole 20 mg cap sean,delayed release RxNorm: 234413 TAKE 1 CAPSULE BY JAVON TH EVERY DAY 07/22/2017 01/13/2018 Inactive Generic For:PRILOSEC 20MG 07/22/2017 8: 58:20 AM Coumadin 4 mg tablet RxNorm: 307164 TAKE 1 TABLET BY MOUTH THREE TIMES PER [place] (WEDNESDAY, WEDNESDAY AND WEDNESDAY) 07/22/2017 02/16/2018 Inactive Generic For:COUMADIN 4MG 07/22/2017 8:58:26 AM sodium bicarbonate 6 50 mg tablet RxNorm: 266205 TAKE 2 TABLETS BY JAVON TH TWICE DAILY 06/22/2017 12/18/2017 In active 06/19/2017 12:23:30 PM venlafaxine ER 75 mg capsule,extended release 24 hr RxNorm: 055667 TAKE 1 CAPSULE BY MOUTH ONCE DAILY 06/22/2017 06/16/2018 Inactive Generic For:*EFFEXOR XR 75M G 06/19/2017 12:23:45 PM Coumadin 5 mg tablet RxNorm: 756013 1 Tablet(s) PO UD 06/01/2017 09/30/2017 Inactive Keflex 500 mg capsule RxNorm: 286120 1 Capsule(s) PO TID 05/27/2017 06/02/2017 Inactive Synthroid 137 mcg ta blet RxNorm: 723472 TAKE 1 TABLET BY MOUT H ONCE DAILY 05/24/2017 08/21/2017 In active Generic For:SYNTHROID 137MCG TAB 2016 8:55:59 AM Carafate 1 gram tablet RxNorm: 865538 TAKE ONE TABLET BY MOUTH TWICE DAILY 05/24/2017 12/19/2017 In active Generic For:CARAFATE 1GM 05/24/2017 8:5 5:54 AM spironolactone 25 mg tablet RxNorm: 405850 1 Tablet(s) PO daily 05/24/2017 05/17/2018 Inactive Detrol LA 4 mg capsu le,extended release RxNorm: 833836 1 Capsule(s) PO daily TAKE 1 CAPSULE BY MOUTH ONCE DAILY 05/10/2017 10/19/2017 Inactive Generic For:DETROL LA 4MG CAP 02/19/2017 2:36:00 PM Lasix 20 mg tablet RxNorm: 738242 TAKE ONE TABLET BY MOUTH DAILY 04/23/2017 08/20/2017 In active Generic For:LASIX 20MG 04/23/2017 9:04: 01 AM Coumadin 4 mg tablet RxNorm: 241695 TAKE 1 TABLET BY MOUTH THREE TIMES PER [place] (WEDNESDAY, WEDNESDAY AND WEDNESDAY) 04/23/2017 07/21/2017 Inactive Generic For:COUMADIN 4MG 04/23/2017 9:04:05 AM allopurinol 300 mg t ablet RxNorm: 608062 TAKE 1 TABLET BY MOUT H ONCE DAILY. 04/23/2017 10/19/2017 In active Generic For:ZYLOPRIM 300 MG TABLET 08/2016 9:03:57 AM potassium chloride 2 0 mEq/15 mL oral liquid RxNorm: 725065 Milliliter(s) 30 Milliliter(s) (40mEq) PO daily 03/24/2017 07/21/2017 Inactive Lovenox 30 mg/0.3 mL subcutaneous syringe RxNorm: 141362 0.3 Milliliter(s) SQ Q12H 03/22/2017 03/26/2017 In active Lovenox 30 mg/0.3 mL subcutaneous syringe RxNorm: 664202 0.3 Milliliter(s) SQ Q12H 03/19/2017 03/20/2017 In active Lovenox 30 mg/0.3 mL subcutaneous syringe RxNorm: 051385 0.3 Milliliter(s) SQ Q12H 03/16/2017 03/18/2017 In active clonazepam 0.5 mg ta blet RxNorm: 650455 1 Tablet(s) PO BID 03/02/2017 07/28/2017 Inactive Lovenox 30 mg/0.3 mL subcutaneous syringe RxNorm: 987238 1 injection SQ BID do NOT take the night time dose the day before surgery, or the morning dose the day of surgery 03/01/2017 03/07/2017 Inactive Lovenox 30 mg/0.3 mL subcutaneous syringe RxNorm: 624155 1 injection SQ BID 03/01/2017 02/28/2017 In active Detrol LA 4 mg capsu le,extended release RxNorm: 611034 TAKE 1 CAPSULE BY JAVON TH ONCE DAILY 02/19/2017 05/09/2017 Inactive Generic For:DETROL LA 4MG C AP 02/19/2017 2:36:00 PM hydrocodone 5 mg-humberto taminophen 325 mg tablet RxNorm: 147996 1-2 Tablet(s) PO Q6 P RN 02/04/2017 No Stop Date Active Zetia 10 mg tablet RxNorm: 388177 TAKE 1 TABLET BY MOUTH DAILY 01/25/2017 04/13/2018 Inactive 01/23/2017 9:03:48 AM omeprazole 20 mg cap sean,delayed release RxNorm: 137723 TAKE 1 CAPSULE BY JAVON TH EVERY DAY 01/25/2017 07/21/2017 Inactive Generic For:PRILOSEC 20MG 01/23/2017 9: 03:45 AM Coumadin 4 mg tablet RxNorm: 502043 TAKE 1 TABLET BY MOUTH THREE TIMES PER [place] (WEDNESDAY, WEDNESDAY AND WEDNESDAY) 01/25/2017 04/22/2017 Inactive Generic For:COUMADIN 4MG 01/23/2017 9:03:51 AM sodium bicarbonate 6 50 mg tablet RxNorm: 500335 TAKE 2 TABLETS BY JAVON TH TWICE DAILY 12/24/2016 06/21/2017 In active 12/24/2016 9:09:27 AM Lasix 20 mg tablet RxNorm: 923284 1 Tablet(s) PO daily 12/24/2016 04/22/2017 Inactive Synthroid 137 mcg ta blet RxNorm: 800873 TAKE 1 TABLET BY MOUT H ONCE DAILY 11/24/2016 05/22/2017 In active Generic For:SYNTHROID 137MCG TAB 2016 9:04:37 AM Coumadin 4 mg tablet RxNorm: 422949 TAKE 1 TABLET BY MOUTH THREE TIMES PER [place] (WEDNESDAY, WEDNESDAY AND WEDNESDAY) 11/24/2016 01/22/2017 Inactive Generic For:COUMADIN 4MG 11/24/2016 9:04:41 AM hydrocodone 5 mg-humberto taminophen 325 mg tablet RxNorm: 920083 1-2 Tablet(s) PO Q6 P RN 11/17/2016 02/03/2017 In active Carafate 1 gram tablet RxNorm: 684840 TAKE ONE TABLET BY MOUTH TWICE DAILY 10/27/2016 05/23/2017 In active Generic For:CARAFATE 1GM 10/26/2016 8:3 9:42 AM allopurinol 300 mg t ablet RxNorm: 105184 Tablet(s) TAKE 1 TABL ET BY MOUTH ONCE DAILY. 10/26/2016 04/22/2017 Inactive Lipitor 40 mg tablet RxNorm: 899942 1 Tablet(s) PO daily 09/25/2016 09/19/2017 Inactive Coumadin 4 mg tablet RxNorm: 701297 TAKE 1 TABLET BY MOUTH THREE TIMES PER [place] (WEDNESDAY, WEDNESDAY AND WEDNESDAY) 09/25/2016 11/23/2016 Inactive Generic For:COUMADIN 4MG 09/25/2016 8:55:58 AM Zetia 10 mg tablet RxNorm: 592856 1 Tablet(s) PO daily 09/25/2016 01/22/2017 Inactive gave 1 month of samples clonazepam 0.5 mg ta blet RxNorm: 771664 1 Tablet(s) PO BID 09/21/2016 02/16/2017 Inactive Lasix 20 mg tablet RxNorm: 646235 1 Tablet(s) PO daily 09/15/2016 12/23/2016 Inactive potassium chloride 2 0 mEq/15 mL oral liquid RxNorm: 267098 Milliliter(s) 30 Milliliter(s) (40mEq) PO daily 09/15/2016 01/12/2017 Inactive Lasix 20 mg tablet RxNorm: 2 Tablet(s) PO daily 09/10/2016 09/12/2016 Inactive Lasix 20 mg tablet RxNorm: 1 Tablet(s) PO daily 08/28/2016 08/30/2016 Inactive Lasix 20 mg tablet RxNorm: 1 Tablet(s) PO daily 08/20/2016 08/22/2016 Inactive Detrol LA 4 mg capsu le,extended release RxNorm: 146254 TAKE 1 CAPSULE BY JAVON TH ONCE DAILY 07/27/2016 02/18/2017 Inactive Generic For:DETROL LA 4MG C AP 07/27/2016 9:08:27 AM Coumadin 4 mg tablet RxNorm: 676536 1 Tablet(s) PO 3 x week tue thur and sun 07/27/2016 09/24/2016 In active omeprazole 20 mg cap sean,delayed release RxNorm: 764882 Capsule(s) PO TAKE 1 CAPSULE BY MOUTH ONCE DAILY 07/27/2016 01/22/2017 Inactive venlafaxine ER 75 mg capsule,extended release 24 hr RxNorm: 203747 1 Capsule(s) PO daily 06/29/2016 06/21/2017 Inactive sodium bicarbonate 6 50 mg tablet RxNorm: 564240 TAKE 2 TABLETS BY JAVON TH TWICE DAILY 06/29/2016 12/23/2016 In active 06/27/2016 9:05:39 AM Coumadin 4 mg tablet RxNorm: 051637 1 Tablet(s) PO 3 x week e and sun 06/09/2016 06/08/2016 In active Coumadin 4 mg tablet RxNorm: 076369 1 Tablet(s) PO 3 x week e thur and sun 06/09/2016 07/26/2016 In active Zetia 10 mg tablet RxNorm: 882676 1 Tablet(s) PO daily 06/09/2016 06/08/2016 Inactive gave 1 month of samples Zetia 10 mg tablet RxNorm: 726970 1 Tablet(s) PO daily 06/09/2016 09/24/2016 Inactive gave 1 month of samples Effexor 75 mg tablet RxNorm: 421192 1 Tablet(s) PO daily 06/08/2016 06/28/2016 Inactive spironolactone 25 mg tablet RxNorm: 149876 1 Tablet(s) PO daily 06/08/2016 05/23/2017 Inactive Synthroid 137 mcg ta blet RxNorm: 321010 1 Tablet(s) PO daily 05/07/2016 11/02/2016 Inactive allopurinol 300 mg t ablet RxNorm: 711308 Tablet(s) TAKE 1 TABL ET BY MOUTH ONCE DAILY. 04/28/2016 10/24/2016 Inactive clonazepam 0.5 mg ta blet RxNorm: 627877 1 Tablet(s) PO BID 04/20/2016 09/15/2016 Inactive Flonase Allergy Reli ef 50 mcg/actuation nasal spray,suspension RxNorm: 9943333 1 [place] NASAL BID 04/02/2016 No Stop Date Active Zithromax Z-Thomas 250 mg tablet RxNorm: 928481 Tablet(s) PO 04/02/2016 08/27/2016 Inactive cetirizine 10 mg tablet RxNorm: 3166444 1 Tablet(s) PO daily 04/02/2016 05/01/2016 Inactive Carafate 1 gram tablet RxNorm: 156827 Tablet(s) TAKE 1 TABLET TWICE A DAY FOR 30 DAYS 03/30/2016 10/25/2016 Inactive Generic For:CARAFATE 1GM 02/08/2015 12:3 6:39 PM Plavix 75 mg tablet RxNorm: 991128 1 Tablet(s) PO daily 03/11/2016 09/06/2016 Inactive sodium bicarbonate 6 50 mg tablet RxNorm: 143686 Tablet(s) 2 Tablet(s) PO BID 02/28/2016 06/26/2016 In active omeprazole 20 mg cap sean,delayed release RxNorm: 173366 Capsule(s) PO TAKE 1 CAPSULE BY MOUTH ONCE DAILY 01/31/2016 07/26/2016 Inactive Fish Oil 1,000 mg ca psule RxNorm: 1 Capsule(s) PO BID 01/14/2016 No Stop Date Active Synthroid 137 mcg ta blet RxNorm: 863037 1 Tablet(s) PO daily 01/14/2016 05/06/2016 Inactive Detrol LA 4 mg capsu le,extended release RxNorm: 402511 TAKE 1 CAPSULE BY JAVON TH ONCE DAILY 12/30/2015 07/26/2016 Inactive Generic For:DETROL LA 4MG C AP 12/30/2015 9:11:01 AM potassium chloride 2 0 mEq/15 mL oral liquid RxNorm: 598078 Milliliter(s) 30 Milliliter(s) (40mEq) PO daily 12/02/2015 03/30/2016 Inactive sodium bicarbonate 6 50 mg tablet RxNorm: 814368 Tablet(s) 2 Tablet(s) PO BID 10/31/2015 02/27/2016 In active Lipitor 40 mg tablet RxNorm: 530328 1 Tablet(s) PO daily 10/09/2015 09/24/2016 Inactive sodium bicarbonate 6 50 mg tablet RxNorm: 444354 2 Tablet(s) PO BID 10/01/2015 10/30/2015 Inactive allopurinol 300 mg t ablet RxNorm: 699695 TAKE 1 TABLET BY MOUT H ONCE DAILY. 10/01/2015 04/27/2016 In active Generic For:ZYLOPRIM 300 MG TABLET 09/19 9:21:15 AM clonazepam 0.5 mg ta blet RxNorm: 172494 1 Tablet(s) PO BID 09/30/2015 04/19/2016 Inactive Coumadin 5 mg tablet RxNorm: 599920 1 Tablet(s) PO daily 09/27/2015 05/31/2017 Inactive Generic For:COUMADIN 5MG TAB N O T I C E PRESCRIPTION PREVIOUSLY AUTHORIZED BY DOCTOR:BOBBY ZULETA Synthroid 125 mcg ta blet RxNorm: 575722 1 Tablet(s) PO daily 09/27/2015 09/26/2015 Inactive Synthroid 125 mcg ta blet RxNorm: 563491 1 Tablet(s) PO daily 09/27/2015 01/13/2016 Inactive Carafate 1 gram tablet RxNorm: 447809 Tablet(s) TAKE 1 TABLET TWICE A DAY FOR 30 DAYS 09/02/2015 03/29/2016 Inactive Generic For:CARAFATE 1GM 02/08/2015 12:3 6:39 PM sodium bicarbonate 6 50 mg tablet RxNorm: 451777 2 Tablet(s) PO BID 09/02/2015 09/30/2015 Inactive Prilosec 20 mg capsu le,delayed release RxNorm: 865964 TAKE 1 CAPSULE BY JAVON TH ONCE DAILY 08/02/2015 01/28/2016 Inactive Generic For:PRILOSEC 20MG 08/02/2015 10:03:09 AM N O T I C E PRESCRIPTION PREVIOUSLY AUTHORIZED BY DOCTOR:BOBBY ZULETA Zyrtec 10 mg capsule RxNorm: 3705619 1 Capsule(s) PO daily 07/15/2015 08/13/2015 Inactive Keflex 500 mg capsule RxNorm: 122642 1 Capsule(s) PO TID 07/15/2015 07/21/2015 Inactive cetirizine 10 mg cap sean RxNorm: 5688148 1 Capsule(s) PO daily 07/15/2015 08/13/2015 Inactive hydrocodone 5 mg-humberto taminophen 325 mg tablet RxNorm: 207948 1-2 Tablet(s) PO Q6 P RN 06/10/2015 11/16/2016 In active sodium bicarbonate 6 50 mg tablet RxNorm: 037876 2 Tablet(s) PO BID 06/03/2015 08/31/2015 Inactive Detrol LA 4 mg capsu le,extended release RxNorm: 100843 TAKE 1 CAPSULE BY JAVON TH ONCE DAILY 06/03/2015 12/29/2015 Inactive Generic For:DETROL LA 4MG C AP N O T I C E PRESCRIPTION PREVIOUSLY AUTHORIZED BY DOCTOR:BOBBY ZULETA atenolol 50 mg tablet RxNorm: 521922 1 Tablet(s) PO daily TAKE 1 TABLET BY MO UTH DAILY 05/07/2015 08/23/2017 Inactive Generic For:TENORMIN 50MG 05/04/2015 9:07:22 AM spironolactone 25 mg tablet RxNorm: 355222 1 Tablet(s) PO daily 05/06/2015 06/07/2016 Inactive venlafaxine ER 75 mg capsule,extended release 24 hr RxNorm: 086917 1 Capsule(s) PO daily 05/04/2015 06/28/2016 Inactive atenolol 50 mg tablet RxNorm: 652850 TAKE 1 TABLET BY MOUTH DAILY 05/04/2015 05/06/2015 Inactive Generic For:TENORMIN 50MG 05/04/2015 9: 07:22 AM Synthroid 150 mcg ta blet RxNorm: 217487 TAKE 1 TABLET BY MOUT H ONCE DAILY. 04/05/2015 09/26/2015 In active Generic For:SYNTHROID 150MCG TAB 2014 4:45:40 PM N O T I C E PRESCRIPTION PREVIOUSLY AUTHORIZED BY DOCTOR:BOBBY ZULETA Effexor 75 mg tablet RxNorm: 736859 1 Tablet(s) PO daily 04/05/2015 07/03/2015 Inactive Coumadin 5 mg tablet RxNorm: 120496 TAKE 1 AND 1/2 TABLETS BY MOUTH ONCE MYRANDA LY 04/04/2015 09/26/2015 In active Generic For:COUMADIN 5MG TAB N O T I C E PRESCRIPTION PREVIOUSLY AUTHORIZED BY DOCTOR:BOBBY ZULETA clonazepam 0.5 mg ta blet RxNorm: 904392 1 Tablet(s) PO BID 03/13/2015 11/05/2015 Inactive sodium bicarbonate 6 50 mg tablet RxNorm: 482015 2 Tablet(s) PO BID 03/08/2015 06/02/2015 Inactive allopurinol 300 mg t ablet RxNorm: 642601 TAKE 1 TABLET BY MOUT H ONCE DAILY. 03/05/2015 09/30/2015 In active N O T I C E PRESCRIPTION PREVIOUSLY A UTHORIZED BY DOCTOR:BOBBY ZULETA Plavix 75 mg tablet RxNorm: 267159 1 Tablet(s) PO daily 02/12/2015 09/09/2015 Inactive clonazepam 0.5 mg ta blet RxNorm: 473398 1 Tablet(s) PO BID 02/11/2015 03/11/2015 Inactive Carafate 1 gram tablet RxNorm: 481318 TAKE 1 TABLET TWICE A DAY FOR 30 DAYS 02/08/2015 02/07/2015 In active Generic For:CARAFATE 1GM 02/08/2015 12:3 6:39 PM Carafate 1 gram tablet RxNorm: 408771 Tablet(s) TAKE 1 TABLET TWICE A DAY FOR 30 DAYS 02/08/2015 09/01/2015 Inactive Generic For:CARAFATE 1GM 02/08/2015 12:3 6:39 PM potassium chloride 2 0 mEq/15 mL oral liquid RxNorm: 824102 30 Milliliter(s) (40m Eq) PO daily 02/05/2015 12/01/2015 Inactive atenolol 50 mg tablet RxNorm: 037081 1 Tablet(s) PO daily 02/04/2015 05/03/2015 Inactive [SAVINGS FOR NON-COVERED DRUGS -- BIN:00 3585, PCN: [id number], Group: XXXXX, ID# [id number], Questions: . THIS IS NOT INSURANCE.] potassium chloride 2 0 mEq/15 mL oral liquid RxNorm: 061335 30 Milliliter(s) (40m Eq) PO daily 01/08/2015 02/04/2015 Inactive potassium chloride 2 0 mEq/15 mL oral liquid RxNorm: 221502 30 Milliliter(s) (40m Eq) PO daily 12/07/2014 01/07/2015 Inactive atenolol 50 mg tablet RxNorm: 552267 1 Tablet(s) PO daily 11/09/2014 11/08/2014 Inactive atenolol 50 mg tablet RxNorm: 279381 1 Tablet(s) PO daily 11/09/2014 02/03/2015 Inactive [SAVINGS FOR NON-COVERED DRUGS -- BIN:00 3585, PCN: [id number], Group: XXXXX, ID# [id number], Questions: . THIS IS NOT INSURANCE.] Voltaren 1 % topical gel RxNorm: 444269 TOP No St art Date Active verapamil ER (HS) 24 0 mg tablet,extended release 24 hr RxNorm: 605178 1 Tablet(s) PO daily No Start Date Active aspirin 81 mg tablet RxNorm: 090025 1 Tablet(s) PO daily No Start Date Active Zofran 4 mg tablet RxNorm: 908271 1 Tablet(s) PO PRN No Start Date Active B12 1000 mcg RxNorm: 1 Tablet(s) PO daily No Start Date Active magnesium oxide 400 mg capsule RxNorm: 273571 2 Capsule(s) PO BID No Start Date Active Synthroid 150 mcg ta blet RxNorm: 504541 1 Tablet(s) PO daily No Start Date 04/04/2015 Inactive Coumadin 5 mg tablet RxNorm: 196233 1 Tablet(s) PO daily No Start Date 04/03/2015 Inactive cranberry 1,000 mg c apsule RxNorm: 538938 1 Capsule(s) PO daily No Start Date 04/13/2018 Inactive allopurinol 300 mg t ablet RxNorm: 705651 1 Tablet(s) PO daily No Start Date 03/04/2015 Inactive Prilosec 20 mg capsu le,delayed release RxNorm: 460012 1 Capsule(s) PO PRN No Start Date 08/01/2015 Inactive potassium chloride 2 0 mEq/15 mL oral liquid RxNorm: 688883 30 Milliliter(s) (40m Eq) PO daily No Start Date 12/06/2014 Inactive atenolol 50 mg tablet RxNorm: 581924 1 Tablet(s) PO daily No Start Date 08/29/2017 Inactive Lipitor 40 mg tablet RxNorm: 252064 1 Tablet(s) PO daily No Start Date 09/19/2017 Inactive Effexor 75 mg tablet RxNorm: 387482 1 Tablet(s) PO daily No Start Date 04/04/2015 Inactive Carafate 1 gram tablet RxNorm: 258181 1 Tablet(s) PO BID No Start Date 02/07/2015 Inactive clonazepam 0.5 mg ta blet RxNorm: 805639 1 Tablet(s) PO BID No Start Date 02/10/2015 Inactive Plavix 75 mg tablet RxNorm: 492468 1 Tablet(s) PO daily No Start Date 02/11/2015 Inactive sodium bicarbonate 6 50 mg tablet RxNorm: 299770 2 Tablet(s) PO BID No Start Date 09/01/2015 Inactive Lovenox 30 mg/0.3 mL subcutaneous syringe RxNorm: 423472 0.3 Milliliter(s) SQ Q12H No Start Date 03/15/2017 Inactive Fish Oil 1,000 mg ca psule RxNorm: 1 Capsule(s) PO daily No Start Date 01/13/2016 Inactive Detrol LA 4 mg capsu le,extended release RxNorm: 079957 1 Capsule(s) PO daily No Start Date 06/02/2015 Inactive Medication Administered Medication Codes Instruc tions Start Date Status Kenalog 40 mg/mL suspension for injection RxNorm: 3838738 Milliliter 09/02/2018 No longer Active Immunizations Vaccine Codes Date Status SHINGARIX CVX: 121 03/23 completed Assessments Condition Codes Effectiv e Dates Other acute sinusitis ICD-10: J01.80 ICD-9: 461.8 09/02/2018 Other allergic rhinitis ICD-10: J30. 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 ICD-9: [...] (3rd IS) 0.43 uIU/mL 09/02/2018 Comp Metabolic Ojn053 NA 136 mEq/L 09/02/2018 Comp Metabolic Fqv730 K 4.1 mEq/L 09/02/2018 Comp Metabolic Uew837 CL 103 mEq/L 09/02/2018 Comp Metabolic Tno919 CO2 20.0 mEq/L 09/02/2018 Comp Metabolic Vkc563 AN ION GAP 17 09/02/2018 Comp Metabolic Dvt818 GL UCOSE 124 mg/dL 09/02/2018 Comp Metabolic Gpv361 Cr eat 1.0 mg/dL 09/02/2018 Comp Metabolic Qih979 eG FR 57 ml/min/1.73m2 09/02 Comp Metabolic Dme296 BUN 24 mg/dL 09/02/2018 Comp Metabolic Gmq573 B/ C Ratio 23.8 Ratio 09/02/2018 Comp Metabolic Tzn723 CA LCIUM 9.5 mg/dL 09/02/2018 Comp Metabolic Ffm306 AL K PHOS 64 U/L 09/02/2018 Comp Metabolic Kld469 T(SGOT) 24 U/L 09/02/2018 Comp Metabolic Ykp803 AL T(SGPT) 23 U/L 09/02/2018 Comp Metabolic Yla365 BI LI T 0.5 mg/dL 09/02/2018 Comp Metabolic Adz881 AL BUMIN 4.2 g/dL 09/02/2018 Comp Metabolic Pms019 TP RO 7.4 g/dL 09/02/2018 Comp Metabolic Exm979 GL OB 3.2 g/dL 09/02/2018 Comp Metabolic Mqa739 A/ G Ratio 1.3 Ratio 09/02/2018 Comp Metabolic Urp701 Os mo 277 mOsmo 09/02/2018 Pt Fzb6178 PT 40.6 seconds 09/02/2018 Pt Oyq2714 INR 4.2 09/02/2018 Pt Hun8083 Low Intensity - 1.5-2.0 09/02/2018 Pt Ovr3394 Mod intensity - 2.0-3.0 09/02/2018 Pt Rbj4628 Hi intensity - 3.0-4.0 09/02/2018 Free T4 Jlt839 FREE T4 1.51 ng/dL 09/02/2018 Magnesium Ord90 Mag 1.8 mg/dL 09/02/2018 Pt Mqr2572 PT 29.2 seconds 08/05/2018 Pt Mlr7281 INR 2.8 08/05/2018 Pt Mjz2954 Low Intensity - 1.5-2.0 08/05/2018 Pt Fvk7983 Mod intensity - 2.0-3.0 08/05/2018 Pt Cfo8792 Hi intensity - 3.0-4.0 08/05/2018 Pt Ili6610 PT 30.2 seconds 07/25/2018 Pt Tyj7507 INR 2.9 07/25/2018 Pt Zdv1657 Low Intensity - 1.5-2.0 07/25/2018 Pt Dee3980 Mod intensity - 2.0-3.0 07/25/2018 Pt Wjc6195 Hi intensity - 3.0-4.0 07/25/2018 Pt Zgu2822 PT 25.2 seconds 07/19/2018 Pt Wvc7645 INR 2.3 07/19/2018 Pt Fjw1968 Low Intensity - 1.5-2.0 07/19/2018 Pt Gjo1444 Mod intensity - 2.0-3.0 07/19/2018 Pt Ubs4412 Hi intensity - 3.0-4.0 07/19/2018 Pt Rlk1944 PT 17.4 seconds 07/15/2018 Pt Sma9184 INR 1.5 07/15/2018 Pt Txt0396 Low Intensity - 1.5-2.0 07/15/2018 Pt Lwl1331 Mod intensity - 2.0-3.0 07/15/2018 Pt Nto6975 Hi intensity - 3.0-4.0 07/15/2018 Pt Nyh4584 PT 17.8 seconds 07/08/2018 Pt Hlo6080 INR 1.5 07/08/2018 Pt Ezq6275 Low Intensity - 1.5-2.0 07/08/2018 Pt Bby3766 Mod intensity - 2.0-3.0 07/08/2018 Pt Fkz4627 Hi intensity - 3.0-4.0 07/08/2018 Pt Tco6634 PT 19.2 seconds 07/01/2018 Pt Ntt8643 INR 1.7 07/01/2018 Pt Jtl9499 Low Intensity - 1.5-2.0 07/01/2018 Pt Etz0549 Mod intensity - 2.0-3.0 07/01/2018 Pt Clo5783 Hi intensity - 3.0-4.0 07/01/2018 Pt Fjc0185 PT 17.4 seconds 06/23/2018 Pt Fyn1886 INR 1.5 06/23/2018 Pt Bam0263 Low Intensity - 1.5-2.0 06/23/2018 Pt Unb0955 Mod intensity - 2.0-3.0 06/23/2018 Pt Gfg9998 Hi intensity - 3.0-4.0 06/23/2018 Pt Vol0096 PT 18.4 seconds 06/17/2018 Pt Hrk7111 INR 1.6 06/17/2018 Pt Klo2868 Low Intensity - 1.5-2.0 06/17/2018 Pt Qwq1547 Mod intensity - 2.0-3.0 06/17/2018 Pt Oxu6242 Hi intensity - 3.0-4.0 06/17/2018 Sed Rate [...] 30.4 pg 06/08/2018 Cbc With Differential Ord2 Juab% 9.4 % 06/08/2018 Cbc With Differential Ord2 [...] 1.20 K/ul 06/08/2018 Cbc With Differential Ord2 Juab ABS# 0.5 K/ul 06/08/2018 Cbc With Differential Ord2 Eos ABS# 0.1 K/ul 06/08/2018 Cbc With Differential Ord2 Baso ABS# 0.1 K/ul 06/08/2018 C-Reactive Protein Qnt Crqnt CRP 0.1 mg/dl 06/08/2018 Pt Qmm8655 PT 17.6 seconds 06/08/2018 Pt Vzc2489 INR 1.5 06/08/2018 Pt Roq6996 Low Intensity - 1.5-2.0 06/08/2018 Pt Afo3586 Mod intensity - 2.0-3.0 06/08/2018 Pt Tlg8776 Hi intensity - 3.0-4.0 06/08/2018 Pt Oyp0197 PT 16.8 seconds 05/10/2018 Pt Lpo8361 INR 1.4 05/10/2018 Pt Lga3345 Low Intensity - 1.5-2.0 05/10/2018 Pt Pee3828 Mod intensity - 2.0-3.0 05/10/2018 Pt Xoa4289 Hi intensity - 3.0-4.0 05/10/2018 Pt Sql7822 PT 16.7 seconds 05/04/2018 Pt Dhp8867 INR 1.4 05/04/2018 Pt Tit3839 Low Intensity - 1.5-2.0 05/04/2018 Pt Zqt1879 Mod intensity - 2.0-3.0 05/04/2018 Pt Awe1570 Hi intensity - 3.0-4.0 05/04/2018 Free T4 Hef206 FREE T4 1.09 ng/dL 04/14/2018 Tsh Ord6 TSH (3rd IS) 2.36 uIU/mL 04/14/2018 Pt Ysr5956 PT 20.3 seconds 04/14/2018 Pt Mwt7415 INR 1.8 04/14/2018 Pt Jhi7664 Low Intensity - 1.5-2.0 04/14/2018 Pt Qje2305 Mod intensity - 2.0-3.0 04/14/2018 Pt Mea6427 Hi intensity - 3.0-4.0 04/14/2018 Lipid Ord30 CHOL 149 mg/dL 04/14/2018 Lipid Ord30 HDL 49.0 mg/dl 04/14/2018 Lipid Ord30 TRIG 161 mg/dL 04/14/2018 Lipid Ord30 LDL 68 mg/dL 04/14/2018 Lipid Ord30 C/HDL 3.0 Ratio 04/14/2018 %Hba1C Lzl366 % HbA1c 44849-8 5.9 % 04/14/2018 %Hba1C Mou065 Gluc Ave 123 mg/dL 04/14/2018 Comp Metabolic Lqm176 NA 140 mEq/L 04/14/2018 Comp Metabolic Jot062 K 4.1 mEq/L 04/14/2018 Comp Metabolic Mod619 CL 105 mEq/L 04/14/2018 Comp Metabolic Jbm751 CO2 28.0 mEq/L 04/14/2018 Comp Metabolic Dmr947 AN ION GAP 11 04/14/2018 Comp Metabolic Zkh923 GL UCOSE 112 mg/dL 04/14/2018 Comp Metabolic Dna915 Cr eat 1.0 mg/dL 04/14/2018 Comp Metabolic Hfu140 eG FR 58 ml/min/1.73m2 04/14 Comp Metabolic Eyz712 BUN 20 mg/dL 04/14/2018 Comp Metabolic Hwz590 B/ C Ratio 20.2 Ratio 04/14/2018 Comp Metabolic Xfx384 CA LCIUM 10.0 mg/dL 04/14/2018 Comp Metabolic Zty504 AL K PHOS 51 U/L 04/14/2018 Comp Metabolic Qcp744 T(SGOT) 24 U/L 04/14/2018 Comp Metabolic Yxq077 AL T(SGPT) 21 U/L 04/14/2018 Comp Metabolic Vak084 BI LI T 0.8 mg/dL 04/14/2018 Comp Metabolic Bqk161 AL BUMIN 4.2 g/dL 04/14/2018 Comp Metabolic Aeb465 TP RO 7.1 g/dL 04/14/2018 Comp Metabolic Ndw115 GL OB 2.9 g/dL 04/14/2018 Comp Metabolic Dri616 A/ G Ratio 1.5 Ratio 04/14/2018 Comp Metabolic Ahv892 Os mo 283 mOsmo 04/14/2018 Cbc With [...] 30.7 pg 04/14/2018 Cbc With Differential Ord2 Juab% 10.6 % 04/14/2018 Cbc With Differential Ord2 [...] 1.18 K/ul 04/14/2018 Cbc With Differential Ord2 Juab ABS# 0.5 K/ul 04/14/2018 Cbc With Differential Ord2 Eos ABS# 0.2 K/ul 04/14/2018 Cbc With Differential Ord2 Baso ABS# 0.1 K/ul 04/14/2018 Pt Kpj8170 PT 29.3 seconds 02/11/2018 Pt Eiw2614 INR 2.8 02/11/2018 Pt Ylz1171 Low Intensity - 1.5-2.0 02/11/2018 Pt Mjc4914 Mod intensity - 2.0-3.0 02/11/2018 Pt Jmu8305 Hi intensity - 3.0-4.0 02/11/2018 Comp Metabolic Hkb187 NA 141 mEq/L 01/05/2018 Comp Metabolic Iit885 K 3.7 mEq/L 01/05/2018 Comp Metabolic Agh584 CL 102 mEq/L 01/05/2018 Comp Metabolic Oya577 CO2 29.0 mEq/L 01/05/2018 Comp Metabolic Nsk009 AN ION GAP 14 01/05/2018 Comp Metabolic Prf833 GL UCOSE 136 mg/dL 01/05/2018 Comp Metabolic Kyy759 Cr eat 1.0 mg/dL 01/05/2018 Comp Metabolic Cvi020 eG FR 61 ml/min/1.73m2 01/05 Comp Metabolic Ymn509 BUN 22 mg/dL 01/05/2018 Comp Metabolic Udm095 B/ C Ratio 22.9 Ratio 01/05/2018 Comp Metabolic Ajs356 CA LCIUM 9.7 mg/dL 01/05/2018 Comp Metabolic Xye915 AL K PHOS 57 U/L 01/05/2018 Comp Metabolic Gci861 T(SGOT) 21 U/L 01/05/2018 Comp Metabolic Shf405 AL T(SGPT) 19 U/L 01/05/2018 Comp Metabolic Pca809 BI LI T 0.9 mg/dL 01/05/2018 Comp Metabolic Czp625 AL BUMIN 4.1 g/dL 01/05/2018 Comp Metabolic Ivq755 TP RO 7.1 g/dL 01/05/2018 Comp Metabolic Bdp970 GL OB 3.0 g/dL 01/05/2018 Comp Metabolic Mna994 A/ G Ratio 1.4 Ratio 01/05/2018 Comp Metabolic Idz711 Os mo 287 mOsmo 01/05/2018 Free T4 Plb065 FREE T4 1.05 ng/dL 01/05/2018 %Hba1C Pxs382 % HbA1c 15057-7 6.0 % 01/05/2018 %Hba1C Ljx956 Gluc Ave 126 mg/dL 01/05/2018 Cbc With [...] 30.6 pg 01/05/2018 Cbc With Differential Ord2 Juab% 10.5 % 01/05/2018 Cbc With Differential Ord2 [...] 1.27 K/ul 01/05/2018 Cbc With Differential Ord2 Juab ABS# 0.5 K/ul 01/05/2018 Cbc With Differential Ord2 Eos ABS# 0.2 K/ul 01/05/2018 Cbc With Differential Ord2 Baso ABS# 0.1 K/ul 01/05/2018 Pt Qqw8394 PT 20.7 seconds 01/05/2018 Pt Tod9280 INR 1.8 01/05/2018 Pt Yrx6602 Low Intensity - 1.5-2.0 01/05/2018 Pt Foj3621 Mod intensity - 2.0-3.0 01/05/2018 Pt Cip3067 Hi intensity - 3.0-4.0 01/05/2018 Tsh Ord6 TSH (3rd IS) 2.34 uIU/mL 01/05/2018 Lipid Ord30 CHOL 156 mg/dL 01/05/2018 Lipid Ord30 HDL 48.0 mg/dl 01/05/2018 Lipid Ord30 TRIG 207 mg/dL 01/05/2018 Lipid Ord30 LDL 67 mg/dL 01/05/2018 Lipid Ord30 C/HDL 3.3 Ratio 01/05/2018 Pt Ioe2471 PT 28.3 seconds 11/26/2017 Pt Dtl5277 INR 2.6 11/26/2017 Pt Tgt8446 Low Intensity - 1.5-2.0 11/26/2017 Pt Ewy2678 Mod intensity - 2.0-3.0 11/26/2017 Pt Bsl0898 Hi intensity - 3.0-4.0 11/26/2017 Pt Eba9163 PT 36.5 seconds 11/19/2017 Pt Uzr8418 INR 3.6 11/19/2017 Pt Sbd2382 Low Intensity - 1.5-2.0 11/19/2017 Pt Yey6114 Mod intensity - 2.0-3.0 11/19/2017 Pt Fcp0704 Hi intensity - 3.0-4.0 11/19/2017 Pt Lkb9222 PT 22.9 seconds 10/15/2017 Pt Kxf3674 INR 2.0 10/15/2017 Pt Vou0632 Low Intensity - 1.5-2.0 10/15/2017 Pt Xis3959 Mod intensity - 2.0-3.0 10/15/2017 Pt Rzm9067 Hi intensity - 3.0-4.0 10/15/2017 Pt Isu0837 PT 25.9 seconds 10/01/2017 Pt Wdq8026 INR 2.4 10/01/2017 Pt Xoc3764 Low Intensity - 1.5-2.0 10/01/2017 Pt Sum2257 Mod intensity - 2.0-3.0 10/01/2017 Pt Bpq3160 Hi intensity - 3.0-4.0 10/01/2017 Pt Vph4802 PT 20.6 seconds 09/24/2017 Pt Acx3701 INR 1.8 09/24/2017 Pt Amb1581 Low Intensity - 1.5-2.0 09/24/2017 Pt Prq5865 Mod intensity - 2.0-3.0 09/24/2017 Pt Eqj3887 Hi intensity - 3.0-4.0 09/24/2017 Pt Wez8110 PT 21.0 seconds 09/15/2017 Pt Hec5518 INR 1.8 09/15/2017 Pt Icx2773 Low Intensity - 1.5-2.0 09/15/2017 Pt Wfs0819 Mod intensity - 2.0-3.0 09/15/2017 Pt Fxp3397 Hi intensity - 3.0-4.0 09/15/2017 Pt Afq0275 PT 19.0 seconds 09/03/2017 Pt Jjj4422 INR 1.6 09/03/2017 Pt Yvs4668 Low Intensity - 1.5-2.0 09/03/2017 Pt Shf2380 Mod intensity - 2.0-3.0 09/03/2017 Pt Oxl5716 Hi intensity - 3.0-4.0 09/03/2017 Pt Zot6800 PT 17.6 seconds 08/23/2017 Pt Own5914 INR 1.5 08/23/2017 Pt Ngg7706 Low Intensity - 1.5-2.0 08/23/2017 Pt Thg5936 Mod intensity - 2.0-3.0 08/23/2017 Pt Eeg0009 Hi intensity - 3.0-4.0 08/23/2017 Pt Isz9585 PT 12.7 seconds 08/20/2017 Pt Jrp0569 INR 1.0 08/20/2017 Pt Mht2257 Low Intensity - 1.5-2.0 08/20/2017 Pt Zry5371 Mod intensity - 2.0-3.0 08/20/2017 Pt Swc1652 Hi intensity - 3.0-4.0 08/20/2017 Pt Kfd4376 PT 12.9 seconds 08/17/2017 Pt Tsr3391 INR 1.0 08/17/2017 Pt Mwg3801 Low Intensity - 1.5-2.0 08/17/2017 Pt Foo5662 Mod intensity - 2.0-3.0 08/17/2017 Pt Zoc8293 Hi intensity - 3.0-4.0 08/17/2017 Pt Uuo5248 PT 18.5 seconds 08/10/2017 Pt Oqt5673 INR 1.6 08/10/2017 Pt Isi7274 Low Intensity - 1.5-2.0 08/10/2017 Pt Kmt5443 Mod intensity - 2.0-3.0 08/10/2017 Pt Dcq7092 Hi intensity - 3.0-4.0 08/10/2017 Tsh Ord6 [...] 29.3 pg 05/27/2017 Cbc With Differential Ord2 Juab% 8.1 % 05/27/2017 Cbc With Differential Ord2 [...] 1.11 K/ul 05/27/2017 Cbc With Differential Ord2 Juab ABS# 0.6 K/ul 05/27/2017 Cbc With Differential Ord2 Eos ABS# 0.2 K/ul 05/27/2017 Cbc With Differential Ord2 Baso ABS# 0.1 K/ul 05/27/2017 Pt Olt9761 PT 28.2 seconds 05/27/2017 Pt Hve9826 INR 2.6 05/27/2017 Pt Yfi6184 Low Intensity - 1.5-2.0 05/27/2017 Pt Zlc0870 Mod intensity - 2.0-3.0 05/27/2017 Pt Yfk4361 Hi intensity - 3.0-4.0 05/27/2017 Lipid Ord30 CHOL 167 mg/dL 05/27/2017 Lipid Ord30 HDL 49.0 mg/dl 05/27/2017 Lipid Ord30 TRIG 347 mg/dL 05/27/2017 Lipid Ord30 LDL 49 mg/dL 05/27/2017 Lipid Ord30 C/HDL 3.4 Ratio 05/27/2017 Magnesium Ord90 Mag 1.4 mg/dL 05/27/2017 %Hba1C Xqk060 % HbA1c 31696-3 5.9 % 05/27/2017 %Hba1C Hmu629 Gluc Ave 123 mg/dL 05/27/2017 Comp Metabolic Rhj976 NA 138 mEq/L 05/27/2017 Comp Metabolic Jen992 K 4.1 mEq/L 05/27/2017 Comp Metabolic Fdq223 CL 101 mEq/L 05/27/2017 Comp Metabolic Viy020 CO2 31.0 mEq/L 05/27/2017 Comp Metabolic Mqs172 AN ION GAP 10 05/27/2017 Comp Metabolic Cmu170 GL UCOSE 117 mg/dL 05/27/2017 Comp Metabolic Iov471 Cr eat 0.9 mg/dL 05/27/2017 Comp Metabolic Swf070 eG FR 62 ml/min/1.73m2 05/27 Comp Metabolic Vcr997 BUN 25 mg/dL 05/27/2017 Comp Metabolic Qtx211 B/ C Ratio 26.6 Ratio 05/27/2017 Comp Metabolic Sbv695 CA LCIUM 9.5 mg/dL 05/27/2017 Comp Metabolic Asl984 AL K PHOS 73 U/L 05/27/2017 Comp Metabolic Aua504 T(SGOT) 18 U/L 05/27/2017 Comp Metabolic Wxl159 AL T(SGPT) 12 U/L 05/27/2017 Comp Metabolic Cnq286 BI LI T 0.5 mg/dL 05/27/2017 Comp Metabolic Nvj856 AL BUMIN 4.1 g/dL 05/27/2017 Comp Metabolic Cme210 TP RO 7.1 g/dL 05/27/2017 Comp Metabolic Hjk028 GL OB 3.0 g/dL 05/27/2017 Comp Metabolic Igr065 A/ G Ratio 1.3 Ratio 05/27/2017 Comp Metabolic Kpe249 Os mo 281 mOsmo 05/27/2017 Free T4 Tlq725 FREE T4 0.91 ng/dL 05/27/2017 Pt Cdd3048 PT 29.2 seconds 04/16/2017 Pt Xwb0126 INR 2.7 04/16/2017 Pt Lrm4868 Low Intensity - 1.5-2.0 04/16/2017 Pt Bve5724 Mod intensity - 2.0-3.0 04/16/2017 Pt Kmi6114 Hi intensity - 3.0-4.0 04/16/2017 Pt Ogu8134 PT 30.7 seconds 03/31/2017 Pt Iov7608 INR 2.9 03/31/2017 Pt Rgw2186 Low Intensity - 1.5-2.0 03/31/2017 Pt Sjm7895 Mod intensity - 2.0-3.0 03/31/2017 Pt Vjp5867 Hi intensity - 3.0-4.0 03/31/2017 Pt Zjm1031 PT 21.3 seconds 03/26/2017 Pt Pob5428 INR 1.9 03/26/2017 Pt Yrt4099 Low Intensity - 1.5-2.0 03/26/2017 Pt Nqw7898 Mod intensity - 2.0-3.0 03/26/2017 Pt Rrb3887 Hi intensity - 3.0-4.0 03/26/2017 Pt Qpr0288 PT 19.8 seconds 03/22/2017 Pt Tqa7583 INR 1.7 03/22/2017 Pt Uyl2178 Low Intensity - 1.5-2.0 03/22/2017 Pt Udw6768 Mod intensity - 2.0-3.0 03/22/2017 Pt Jmg8389 Hi intensity - 3.0-4.0 03/22/2017 Pt Cfo0641 PT 15.6 seconds 03/19/2017 Pt Mzg4177 INR 1.3 03/19/2017 Pt Dsa0007 Low Intensity - 1.5-2.0 03/19/2017 Pt Pvj3506 Mod intensity - 2.0-3.0 03/19/2017 Pt Qev8207 Hi intensity - 3.0-4.0 03/19/2017 Pt Ogc8955 PT 13.7 seconds 03/15/2017 Pt Fnp4918 INR 1.1 03/15/2017 Pt Asf3345 Low Intensity - 1.5-2.0 03/15/2017 Pt Bgy9773 Mod intensity - 2.0-3.0 03/15/2017 Pt Kwg2595 Hi intensity - 3.0-4.0 03/15/2017 Pt Cqh5787 PT 25.8 seconds 01/28/2017 Pt Idf6220 INR 2.4 01/28/2017 Pt Zxz7179 Low Intensity - 1.5-2.0 01/28/2017 Pt Ous0996 Mod intensity - 2.0-3.0 01/28/2017 Pt Xdn0553 Hi intensity - 3.0-4.0 01/28/2017 %Hba1C Ddi081 % HbA1c 44263-6 6.4 % 10/23/2016 %Hba1C Znd567 Gluc Ave 137 mg/dL 10/23/2016 Comp Metabolic Her693 NA 138 mEq/L 10/23/2016 Comp Metabolic Kla657 K 3.4 mEq/L 10/23/2016 Comp Metabolic Vfy187 CL 100 mEq/L 10/23/2016 Comp Metabolic Ugu649 CO2 30.0 mEq/L 10/23/2016 Comp Metabolic Zcm563 AN ION GAP 11 10/23/2016 Comp Metabolic Cto166 GL UCOSE 139 mg/dL 10/23/2016 Comp Metabolic Wos008 Cr eat 0.9 mg/dL 10/23/2016 Comp Metabolic Xqm579 eG FR 62 ml/min/1.73m2 10/23 Comp Metabolic Pgm089 BUN 22 mg/dL 10/23/2016 Comp Metabolic Emd187 B/ C Ratio 23.4 Ratio 10/23/2016 Comp Metabolic Cdl237 CA LCIUM 8.7 mg/dL 10/23/2016 Comp Metabolic Lzw806 AL K PHOS 66 U/L 10/23/2016 Comp Metabolic Cqw946 T(SGOT) 20 U/L 10/23/2016 Comp Metabolic Nfm230 AL T(SGPT) 10 U/L 10/23/2016 Comp Metabolic Slm056 BI LI T 0.5 mg/dL 10/23/2016 Comp Metabolic Kux379 AL BUMIN 3.5 g/dL 10/23/2016 Comp Metabolic Ovx572 TP RO 6.3 g/dL 10/23/2016 Comp Metabolic Xfw976 GL OB 2.8 g/dL 10/23/2016 Comp Metabolic Lvs696 A/ G Ratio 1.3 Ratio 10/23/2016 Comp Metabolic Saf801 Os mo 281 mOsmo 10/23/2016 Pt Ykz6580 PT 26.8 seconds 10/23/2016 Pt Dda4299 INR 2.7 10/23/2016 Pt Pgt4717 Low Intensity - 1.5-2.0 10/23/2016 Pt Iqn8704 Mod intensity - 2.0-3.0 10/23/2016 Pt Lgj4059 Hi intensity - 3.0-4.0 10/23/2016 Pt Ttd9663 PT 28.3 seconds 09/25/2016 Pt Rlh6061 INR 2.8 09/25/2016 Pt Jcp7373 Low Intensity - 1.5-2.0 09/25/2016 Pt Uuh4629 Mod intensity - 2.0-3.0 09/25/2016 Pt Eng4106 Hi intensity - 3.0-4.0 09/25/2016 Metabolic Ord15 [...] Metabolic Ord15 CALCIUM 8.8 mg/dL 09/25/2016 Pt Aaz1497 PT 30.6 seconds 09/11/2016 Pt Sky5303 INR 3.2 09/11/2016 Pt Xqn2400 Low Intensity - 1.5-2.0 09/11/2016 Pt Knz2278 Mod intensity - 2.0-3.0 09/11/2016 Pt Ddz6773 Hi intensity - 3.0-4.0 09/11/2016 Comp Metabolic Zpg113 NA 138 mEq/L 09/11/2016 Comp Metabolic Lmy643 K 4.4 mEq/L 09/11/2016 Comp Metabolic Kgt225 CL 103 mEq/L 09/11/2016 Comp Metabolic Xzd868 CO2 31.0 mEq/L 09/11/2016 Comp Metabolic Itj700 AN ION GAP 8 09/11/2016 Comp Metabolic Hfh516 GL UCOSE 146 mg/dL 09/11/2016 Comp Metabolic Oiq816 Cr eat 1.0 mg/dL 09/11/2016 Comp Metabolic Pnb305 eG FR 60 ml/min/1.73m2 09/11 Comp Metabolic Jss179 BUN 16 mg/dL 09/11/2016 Comp Metabolic Ups500 B/ C Ratio 16.5 Ratio 09/11/2016 Comp Metabolic Kpl928 CA LCIUM 8.7 mg/dL 09/11/2016 Comp Metabolic Aav875 AL K PHOS 52 U/L 09/11/2016 Comp Metabolic Ksi583 T(SGOT) 19 U/L 09/11/2016 Comp Metabolic Kny355 AL T(SGPT) 11 U/L 09/11/2016 Comp Metabolic Fft929 BI LI T 0.7 mg/dL 09/11/2016 Comp Metabolic Xci066 AL BUMIN 3.3 g/dL 09/11/2016 Comp Metabolic Brm788 TP RO 5.8 g/dL 09/11/2016 Comp Metabolic Zme946 GL OB 2.5 g/dL 09/11/2016 Comp Metabolic Ibv218 A/ G Ratio 1.3 Ratio 09/11/2016 Comp Metabolic Dds264 Os mo 280 mOsmo 09/11/2016 C-Reactive Protein Qnt Crqnt CRP 0.1 mg/dl 08/21/2016 Comp Metabolic Xhd085 NA 139 mEq/L 08/21/2016 Comp Metabolic Ebb208 K 4.1 mEq/L 08/21/2016 Comp Metabolic Fhs256 CL 102 mEq/L 08/21/2016 Comp Metabolic Fol927 CO2 30.0 mEq/L 08/21/2016 Comp Metabolic Nnx469 AN ION GAP 11 08/21/2016 Comp Metabolic Efs302 GL UCOSE 148 mg/dL 08/21/2016 Comp Metabolic Aii586 Cr eat 1.0 mg/dL 08/21/2016 Comp Metabolic Ugt162 eG FR 55 ml/min/1.73m2 08/21 Comp Metabolic Ays527 BUN 21 mg/dL 08/21/2016 Comp Metabolic Uwd896 B/ C Ratio 20.2 Ratio 08/21/2016 Comp Metabolic Krn150 CA LCIUM 9.4 mg/dL 08/21/2016 Comp Metabolic Jnh198 AL K PHOS 63 U/L 08/21/2016 Comp Metabolic Ecg783 T(SGOT) 23 U/L 08/21/2016 Comp Metabolic Nkv119 AL T(SGPT) 16 U/L 08/21/2016 Comp Metabolic Gdx761 BI LI T 0.6 mg/dL 08/21/2016 Comp Metabolic Lti871 AL BUMIN 3.9 g/dL 08/21/2016 Comp Metabolic Irz574 TP RO 6.8 g/dL 08/21/2016 Comp Metabolic Ufl020 GL OB 2.9 g/dL 08/21/2016 Comp Metabolic Rxv681 A/ G Ratio 1.4 Ratio 08/21/2016 Comp Metabolic Wez654 Os mo 283 mOsmo 08/21/2016 Sed Rate Ord21 ESR 16 mm/hr 08/21/2016 Pt Vlb2798 PT 27.2 seconds 08/21/2016 Pt Baw3238 INR 2.7 08/21/2016 Pt Mdb3915 Low Intensity - 1.5-2.0 08/21/2016 Pt Dyp2861 Mod intensity - 2.0-3.0 08/21/2016 Pt Dys5502 Hi intensity - 3.0-4.0 08/21/2016 Magnesium Ord90 Mag 1.9 mg/dL 08/21/2016 Pt Itp9179 PT 25.9 seconds 06/17/2016 Pt Nul8557 INR 2.5 06/17/2016 Pt Ban8501 Low Intensity - 1.5-2.0 06/17/2016 Pt Qgp0106 Mod intensity - 2.0-3.0 06/17/2016 Pt Ftv8152 Hi intensity - 3.0-4.0 06/17/2016 Tsh Ord6 hTSH II 2.13 uIU/mL 06/08/2016 Free T4 Ddf966 FREE T4 0.79 ng/dL 06/08/2016 Cbc With [...] 26.8 pg 06/08/2016 Cbc With Differential Ord2 Juab% 12.0 % 06/08/2016 Cbc With Differential Ord2 [...] 1.40 K/ul 06/08/2016 Cbc With Differential Ord2 Juab ABS# 0.7 K/ul 06/08/2016 Cbc With Differential Ord2 Eos ABS# 0.3 K/ul 06/08/2016 Cbc With Differential Ord2 Baso ABS# 0.1 K/ul 06/08/2016 %Hba1C Rof971 % HbA1c 82421-3 6.2 % 06/08/2016 %Hba1C Vzi469 Gluc Ave 131 mg/dL 06/08/2016 Comp Metabolic Oaz823 NA 138 mEq/L 06/08/2016 Comp Metabolic Tch062 K 3.9 mEq/L 06/08/2016 Comp Metabolic Ddi536 CL 105 mEq/L 06/08/2016 Comp Metabolic Puw286 CO2 27.0 mEq/L 06/08/2016 Comp Metabolic Xxh143 AN ION GAP 10 06/08/2016 Comp Metabolic Hfq218 GL UCOSE 127 mg/dL 06/08/2016 Comp Metabolic Mii979 Cr eat 1.0 mg/dL 06/08/2016 Comp Metabolic Ftv723 eG FR 59 ml/min/1.73m2 06/08 Comp Metabolic Gtx317 BUN 19 mg/dL 06/08/2016 Comp Metabolic Rlu052 B/ C Ratio 19.4 Ratio 06/08/2016 Comp Metabolic Usg150 CA LCIUM 9.2 mg/dL 06/08/2016 Comp Metabolic Nae263 AL K PHOS 77 U/L 06/08/2016 Comp Metabolic Mpd514 T(SGOT) 19 U/L 06/08/2016 Comp Metabolic Vko359 AL T(SGPT) 13 U/L 06/08/2016 Comp Metabolic Mds054 BI LI T 0.5 mg/dL 06/08/2016 Comp Metabolic Thb543 AL BUMIN 3.8 g/dL 06/08/2016 Comp Metabolic Bar766 TP RO 6.6 g/dL 06/08/2016 Comp Metabolic Jvg203 GL OB 2.8 g/dL 06/08/2016 Comp Metabolic Tma161 A/ G Ratio 1.4 Ratio 06/08/2016 Comp Metabolic Shx433 Os mo 280 mOsmo 06/08/2016 Pt Qqc0243 PT 36.1 seconds 06/08/2016 Pt Ggs1401 INR 3.9 06/08/2016 Pt Mnc9405 Low Intensity - 1.5-2.0 06/08/2016 Pt Dgx3723 Mod intensity - 2.0-3.0 06/08/2016 Pt Tsh8403 Hi intensity - 3.0-4.0 06/08/2016 Lipid Ord30 CHOL 149 mg/dL 06/08/2016 Lipid Ord30 HDL 46.0 mg/dl 06/08/2016 Lipid Ord30 TRIG 279 mg/dL 06/08/2016 Lipid Ord30 LDL 47 mg/dL 06/08/2016 Lipid Ord30 C/HDL 3.2 Ratio 06/08/2016 Pt Got3534 PT 30.9 seconds 02/12/2016 Pt Vuy5319 INR 3.2 02/12/2016 Pt Mei5979 Low Intensity - 1.5-2.0 02/12/2016 Pt Oth1333 Mod intensity - 2.0-3.0 02/12/2016 Pt Msn4061 Hi intensity - 3.0-4.0 02/12/2016 Free T4 Vks421 FREE T4 1.24 ng/dL 09/27/2015 %Hba1C Els014 % HbA1c 90520-0 6.4 % 09/27/2015 %Hba1C Djn066 Gluc Ave 137 mg/dL 09/27/2015 Tsh Ord6 hTSH II 0.37 uIU/mL 09/27/2015 Pt Jyt8939 PT 26.2 seconds 09/27/2015 Pt Yxh9119 INR 2.5 09/27/2015 Pt Gyz7646 Low Intensity - 1.5-2.0 09/27/2015 Pt Cng6606 Mod intensity - 2.0-3.0 09/27/2015 Pt Mtx6134 Hi intensity - 3.0-4.0 09/27/2015 Pt Jcz9585 PT 27.6 seconds 2015 Pt Xhy6724 INR 2.7 2015 Pt Izu1606 Low Intensity - 1.5-2.0 2015 Pt Cjv7168 Mod intensity - 2.0-3.0 2015 Pt Auf8521 Hi intensity - 3.0-4.0 2015 %Hba1C Rpw923 % HbA1c 81092-1 6.1 % 06/11/2015 %Hba1C Sde166 Gluc Ave 128 mg/dL 06/11/2015 Cbc With [...] Ord2 RDW 15.8 % 06/10/2015 Comp Metabolic Kih143 NA 139 mEq/L 06/10/2015 Comp Metabolic Xyd659 K 4.1 mEq/L 06/10/2015 Comp Metabolic Kro668 CL 105 mEq/L 06/10/2015 Comp Metabolic Bqo379 CO2 27.0 mEq/L 06/10/2015 Comp Metabolic Buk898 AN ION GAP 11 06/10/2015 Comp Metabolic Axo336 GL UCOSE 127 mg/dL 06/10/2015 Comp Metabolic Gpe314 Cr eat 1.0 mg/dL 06/10/2015 Comp Metabolic Ppz165 eG FR 59 ml/min/1.73m2 06/10 Comp Metabolic Bdy057 BUN 21 mg/dL 06/10/2015 Comp Metabolic Nin084 B/ C Ratio 21.2 Ratio 06/10/2015 Comp Metabolic Seh867 CA LCIUM 9.2 mg/dL 06/10/2015 Comp Metabolic Aze206 AL K PHOS 87 U/L 06/10/2015 Comp Metabolic Pfu144 T(SGOT) 20 U/L 06/10/2015 Comp Metabolic Wqk229 AL T(SGPT) 17 U/L 06/10/2015 Comp Metabolic Zac387 BI LI T 0.4 mg/dL 06/10/2015 Comp Metabolic Gcv603 AL BUMIN 4.1 g/dL 06/10/2015 Comp Metabolic Tme144 TP RO 7.2 g/dL 06/10/2015 Comp Metabolic Ggc192 GL OB 3.1 g/dL 06/10/2015 Comp Metabolic Zdg397 A/ G Ratio 1.3 Ratio 06/10/2015 Comp Metabolic Aqs167 Os mo 282 mOsmo 06/10/2015 Tsh Ord6 hTSH II 0.86 uIU/mL 06/10/2015 Lipid Ord30 CHOL 161 mg/dL 06/10/2015 Lipid Ord30 HDL 49.0 mg/dl 06/10/2015 Lipid Ord30 TRIG 208 mg/dL 06/10/2015 Lipid Ord30 LDL 70 mg/dL 06/10/2015 Lipid Ord30 C/HDL 3.3 Ratio 06/10/2015 Pt Fcq5589 PT 25.0 seconds 04/09/2015 Pt Dwc7189 INR 2.4 04/09/2015 Pt Heo2171 Low Intensity - 1.5-2.0 04/09/2015 Pt Xrq7245 Mod intensity - 2.0-3.0 04/09/2015 Pt Zvt0778 Hi intensity - 3.0-4.0 04/09/2015 Free T4 Ria326 FREE T4 1.05 ng/dL 01/22/2015 Pt Roq0848 PT 27.2 seconds 01/22/2015 Pt Kfa0430 INR 2.6 01/22/2015 Pt Get5126 Low Intensity - 1.5-2.0 01/22/2015 Pt Itp0457 Mod intensity - 2.0-3.0 01/22/2015 Pt Val4707 Hi intensity - 3.0-4.0 01/22/2015 Cbc With [...] Differential Ord2 RDW 15.2 % 01/22/2015 B12 Tdl943 B12 402.00 pg/ml 01/22/2015 Tsh Ord6 hTSH II 0.65 uIU/mL 01/22/2015 Lipid Ord30 CHOL 166 mg/dL 01/22/2015 Lipid Ord30 HDL 48.0 mg/dl 01/22/2015 Lipid Ord30 TRIG 264 mg/dL 01/22/2015 Lipid Ord30 LDL 65 mg/dL 01/22/2015 Lipid Ord30 C/HDL 3.5 Ratio 01/22/2015 Comp Metabolic Wpo981 NA 138 mEq/L 01/22/2015 Comp Metabolic Vpu215 K 4.1 mEq/L 01/22/2015 Comp Metabolic Sdk656 CL 104 mEq/L 01/22/2015 Comp Metabolic Mmv263 CO2 29.0 mEq/L 01/22/2015 Comp Metabolic Xrt653 AN ION GAP 9 01/22/2015 Comp Metabolic Ejr783 GL UCOSE 106 mg/dL 01/22/2015 Comp Metabolic Nem522 Cr eat 0.9 mg/dL 01/22/2015 Comp Metabolic Pci578 eG FR 63 ml/min/1.73m2 01/22 Comp Metabolic Lem526 BUN 21 mg/dL 01/22/2015 Comp Metabolic Eql282 B/ C Ratio 22.3 Ratio 01/22/2015 Comp Metabolic Hmx693 CA LCIUM 9.4 mg/dL 01/22/2015 Comp Metabolic Fjm120 AL K PHOS 83 U/L 01/22/2015 Comp Metabolic Kte425 T(SGOT) 23 U/L 01/22/2015 Comp Metabolic Juu328 AL T(SGPT) 18 U/L 01/22/2015 Comp Metabolic Jyv916 BI LI T 0.8 mg/dL 01/22/2015 Comp Metabolic Pdz831 AL BUMIN 4.2 g/dL 01/22/2015 Comp Metabolic Zfv692 TP RO 7.3 g/dL 01/22/2015 Comp Metabolic Btv303 GL OB 3.1 g/dL 01/22/2015 Comp Metabolic Rck269 A/ G Ratio 1.4 Ratio 01/22/2015 Comp Metabolic Nse820 Os mo 279 mOsmo 01/22/2015 Review of [...] Procedure Codes Date THER/PROPH/DIAG INJ SC/IM CPT-4: 32072 09/02/2018 TRIAMCINOLONE ACET I [place] NOS CPT-4: J3301 09/02/2018 URINALYSIS NONAUTO W /O SCOPE CPT-4: 37699 03/05/2017 Vital Signs Date Vital 09/02/2018 Blood Pressure 1: 128/72 Code: 8480-6 BMI: 38.2 Code: 09941-1 Heart Rate 1: 80 bpm Height: 5'1" SpO2: 98% Weight: 202 lbs 04/14/2018 Blood Pressure 1: 116/78 Code: 8480-6 BMI: 41.6 Code: 78940-9 Heart Rate 1: 72 bpm Height: 5'1" SpO2: 98% Weight: 220 lbs 01/18/2018 Blood Pressure 1: 132/74 Code: 8480-6 BMI: 43.5 Code: 83222-7 Heart Rate 1: 70 bpm Height: 5'1" SpO2: 97% Weight: 230 lbs 01/04/2018 Blood Pressure 1: 134/76 Code: 8480-6 BMI: 42.7 Code: 83549-1 Heart Rate 1: 83 bpm Height: 5'1" SpO2: 98% Weight: 226 lbs 09/23/2017 Blood Pressure 1: 124/76 Code: 8480-6 BMI: 42.3 Code: 04460-1 Heart Rate 1: 94 bpm Height: 5'1" SpO2: 96% Weight: 224 lbs 05/27/2017 Blood Pressure 1: 146/78 Code: 8480-6 BMI: 41.4 Code: 28412-1 Heart Rate 1: 85 bpm Height: 5'1" SpO2: 98% Weight: 219 lbs 02/24/2017 Blood Pressure 1: 138/66 Code: 8480-6 BMI: 41.4 Code: 10800-5 Heart Rate 1: 78 bpm Height: 5'1" SpO2: 97% Weight: 219 lbs 11/02/2016 Blood Pressure 1: 144/72 Code: 8480-6 BMI: 46.1 Code: 77364-0 Heart Rate 1: 78 bpm Height: 5'1" SpO2: 98% Weight: 244 lbs 09/30/2016 Blood Pressure 1: 130/76 Code: 8480-6 BMI: 45.0 Code: 78601-2 Heart Rate 1: 86 bpm Height: 5'1" SpO2: 98% Weight: 238 lbs 09/10/2016 Blood Pressure 1: 136/68 Code: 8480-6 BMI: 46.3 Code: 26166-5 Heart Rate 1: 83 bpm Height: 5'1" SpO2: 98% Weight: 245 lbs 08/20/2016 Blood Pressure 1: 142/78 Code: 8480-6 BMI: 45.3 Code: 99060-1 Heart Rate 1: 84 bpm Height: 5'1" SpO2: 99% Weight: 240 lbs 06/08/2016 Blood Pressure 1: 134/76 Code: 8480-6 BMI: 44.2 Code: 66117-9 Heart Rate 1: 86 bpm Height: 5'1" SpO2: 96% Weight: 234 lbs 04/02/2016 Blood Pressure 1: 142/70 Code: 8480-6 BMI: 44.6 Code: 35949-9 Heart Rate 1: 78 bpm Height: 5'1" SpO2: 97% Weight: 236 lbs 01/14/2016 Blood Pressure 1: 146/72 Code: 8480-6 BMI: 44.2 Code: 66814-8 Heart Rate 1: 86 bpm Height: 5'1" SpO2: 96% Weight: 234 lbs 10/02/2015 Blood Pressure 1: 158/76 Code: 8480-6 BMI: 44.2 Code: 41230-2 Heart Rate 1: 67 bpm Height: 5'1" SpO2: 97% Weight: 234 lbs 07/15/2015 Blood Pressure 1: 200/90 Code: 8480-6 Blood Pressure 1: 148/78 Code: 8480-6 BMI: 44.0 Code: 65072-3 Heart Rate 1: 89 bpm Height: 5'1" SpO2: 97% Weight: 233 lbs 06/10/2015 Blood Pressure 1: 140/82 Code: 8480-6 BMI: 44.0 Code: 23651-1 Heart Rate 1: 78 bpm Height: 5'1" [...] wearing crocs and there was a new divehi on the floor: her foot didn't move [...] Encounters Encounter Performer Loca tion Codes Date [id number] EST. PATIENT, LEVEL IV Diagnosis: Other acute sinusitis[ICD10: J01.80] Diagnosis: Other allergic rhinitis[ICD10: J30.89] Nata Almanza MD, [facility] CPT-4: 63989 09/02/2018 ([id number]) 87654 EST. P ATIENT, LEVEL IV Diagnosis: Essential (primary) hypertension[ICD10: I10] Diagnosis: Hypothyroidism, unspecified[ICD10: E03.9] Diagnosis: Impaired fasting glucose[ICD10: R73.01] Diagnosis: [facility] (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[ICD10: Z79.01] Edna Almanza MD, [facility] CPT-4: 54989 04/14/2018 ([id number]) 36247 EST. P ATIENT, LEVEL III Diagnosis: Localized edema[ICD10: R60.0] Diagnosis: Gastro-esophageal reflux disease without esophagitis[ICD10: K21.9] Edna Almanza MD, [facility] CPT-4: 83957 01/18/2018 ([id number]) 42749 EST. P ATIENT, LEVEL IV Diagnosis: Gastro-esophageal reflux disease without esophagitis[ICD10: K21.9] Diagnosis: Localized edema[ICD10: R60.0] Diagnosis: Essential (primary) hypertension[ICD10: I10] Diagnosis: Hypothyroidism, unspecified[ICD10: E03.9] Diagnosis: Impaired fasting glucose[ICD10: R73.01] Edna Almanza MD, [facility] CPT-4: 21796 01/04/2018 ([id number]) 73128 EST. P ATIENT, LEVEL IV Diagnosis: Essential (primary) hypertension[ICD10: I10] Diagnosis: [facility] (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[ICD10: Z79.01] Diagnosis: Incisional hernia without obstruction or gangrene[ICD10: K43.2] Diagnosis: Right lower quadrant pain[ICD10: R10.31] Sarai Almanza MD, [facility] CPT-4: 28140 09/23/2017 ([id number]) 44642 EST. P ATIENT, LEVEL IV Diagnosis: Essential (primary) hypertension[ICD10: I10] Diagnosis: Mixed hyperlipidemia[ICD10: E78.2] Diagnosis: Hypothyroidism, unspecified[ICD10: E03.9] Diagnosis: Impaired fasting glucose[ICD10: R73.01] Diagnosis: [facility] (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[ICD10: Z79.01] Edna Almanza MD, [facility] CPT-4: 79594 05/27/2017 84317 EST. PATIENT, LEVEL III Diagnosis: Pain in right hip[ICD10: M25.551] Nata Almanza MD, [facility] CPT-4: 53340 02/24/2017 ([id number]) 29882 EST. P ATIENT, LEVEL IV Diagnosis: Essential (primary) hypertension[ICD10: I10] Diagnosis: Localized edema[ICD10: R60.0] Diagnosis: Pain in right hip[ICD10: M25.551] Sarai Almanza MD, [facility] CPT-4: 26815 11/02/2016 ([id number]) 05148 EST. P ATIENT, LEVEL IV Diagnosis: Essential (primary) hypertension[ICD10: I10] Diagnosis: Localized edema[ICD10: R60.0] Sarai Almanza MD, [facility] CPT-4: 31958 09/30/2016 45204 EST. PATIENT, LEVEL IV Diagnosis: Localized edema[ICD10: R60.0] Diagnosis: Pain in joints of left hand[ICD10: M25.542] Diagnosis: Pain in joints of right hand[ICD10: M25.541] Nata Almanza MD, [facility] CPT-4: 87278 09/10/2016 31007 EST. PATIENT, LEVEL IV Diagnosis: Localized edema[ICD10: R60.0] Diagnosis: Pain in joints of left hand[ICD10: M25.542] Diagnosis: Pain in joints of right hand[ICD10: M25.541] Diagnosis: Other fatigue[ICD10: R53.83] Nata Almanza MD, [facility] CPT-4: 49509 08/20/2016 58412 EST. PATIENT, LEVEL IV Diagnosis: Essential (primary) hypertension[ICD10: I10] Diagnosis: Other [employer] (current) drug therapy[ICD10: Z79.899] Diagnosis: Tinnitus, bilateral[ICD10: H93.13] Nata Almanza MD, [facility] CPT-4: 34150 06/08/2016 30117 EST. PATIENT, LEVEL IV Diagnosis: Other allergic rhinitis[ICD10: J30.89] Diagnosis: Acute laryngopharyngitis[ICD10: J06.0] Nata Almanza MD, [facility] CPT-4: 18805 04/02/2016 97275 EST. PATIENT, LEVEL IV Diagnosis: Left upper quadrant pain[ICD10: R10.12] Nata Almanza MD, [facility] CPT-4: 05294 01/14/2016 49719 EST. PATIENT, LEVEL IV Diagnosis: Pain in left shoulder[ICD10: M25.512] Diagnosis: Body mass index (BMI) 40.0-44.9, adult[ICD10: Z68.41] Nata Almanza MD, [facility] CPT-4: 92862 10/02/2015 33204 EST. PATIENT, LEVEL IV Diagnosis: Pain in left leg[ICD10: M79.605] Diagnosis: Other correction (current) drug therapy[ICD10: Z79.899] Nata Almanza MD, [facility] CPT-4: 05333 07/15/2015 ([id number]) 51976 EST. 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: Other [employer] (current) drug therapy[ICD10: Z79.899] [facility] CPT-4: 25546 06/10/2015 ([id number]) OFFICE VISI T, NEW - LEVEL 4 Diagnosis: ESSENTIAL HYPERTENSION[ICD9: 401.9] Diagnosis: HYPOTHYROIDISM[ICD9: 244.9] Diagnosis: ENCNTR LONG-RX USE NEC[ICD9: V58.69] Diagnosis: HYPERLIPIDEMIA[ICD9: 272.4] Diagnosis: Vitamin B12 deficiency[ICD9: 266.2] Diagnosis: Status post gastric surgery[ICD9: V45.89] Diagnosis: Snoring[ICD9: 786.09] Sarai Almanza MD, [facility] CPT-4: 02563 01/22/2015 Plan of Care Planned Activity Notes [...] allergy spray. 09/02/2018 Appointment: Nata Hsu WPtel: [facility]0 [facility] (15 min) Moderate 09/02/2018 Patient Education: Patient [...] Hgb A1C 04/14/2018 Appointment: Edna Douglas WPtel: [facility]7 [phone] (15 min) Moderate 04/14/2018 Patient Education: Patient [...] to further attempt to reduce peripheral edema. EKBM-ycrddbzh-wqxpnvyr prilosec BID and carafate QID -discussed low spice, low acidic diet 01/18/2018 Appointment: Edna Douglas WPtel: [facility]5 [phone] [place] (15 min) Moderate 01/18/2018 Patient Education: [...] control. 01/04/2018 [phone] (30 min) Complex 01/04/2018 Patient Education: Patient Medication Summary Completed 01/04/2018 Care Plan: SCREENINGMAMMOGRAPHYDIGITAL LOINC : 30625-7 Pending 01/04/2018 Visit Plan: Abdominal hernia - [...] home. 09/23/2017 Appointment: [phone] (15 min) Moderate 09/23/2017 Patient Education: Patient [...] to medications. 05/27/2017 Appointment: Edna Douglas WPtel: [phone] [phone] (30 min) Complex 05/27/2017 Patient Education: Patient [...] [place]. 02/24/2017 App[facility]ment[phone] (30 min) Complex 02/24/2017 Patient [...] need injection from dr. Chaney. 11/02/2016 Appointment: Sraai [facility]manza [phone] (15 min) Moderate 11/02/2016 Patient Education: Patient [...] edema. 09/30/2016 Appointment: Sarai Almanza WPtel: [phone] [facility] (15 min) Moderate 09/30/2016 Patient Education: Patient [...] edema. 09/10/2016 App[facility]ment: [phone] (30 min) Complex 09/10/2016 Patient [...] edema. 08/20/2016 App[facility]ment[phone] (30 min) Complex 08/20/2016 Patient Education: Patient Medication Summary Completed 08/20/2016 [id number] Ref[facility] Initiated 07/02/2016 Visit Plan: Chronic [...] 06/08/2016 Care Plan: Referral Order SNOMED-CT : [id number] Pending 06/08/2016 Visit Plan: URI - Pt [...] spray. 04/02/2016 Appointment: [phone] (30 min) Complex 04/02/2016 Patient [...] acute pain 01/14/2016 Appointment: Edna Douglas WPtel: [phone] (30 min) Complex 01/14/2016 Patient Education: Patient Medication Summary Completed 01/14/2016 Patient Education: Obesity Completed 01/14/2016 Care Plan: BMI Above normal followup DAVID F-MGMT EDUC & TRAIN 1 PT Pending 10/24/2015 Care Plan: X-RAY EXAM OF SHOULDER LOINC : 77011-2 Pending 10/24/2015 Visit Plan: Left shoulder pain [...] weight check. 10/02/2015 Appointment: Edna Douglas WPtel: [phone] (15 min) Moderate 10/02/2015 Patient [...] ses Completed 06/10/2015 Appointment: Sarai Almanza WPtel: [facility] (15 min) Moderate 04/22/2015 Visit Plan: Hypertension [...] have surgical fixation - planning occurring at [facility]. Snoring - Sleep apnea symptoms with difficulty [...] medications. 01/22/2015 Appointment: Sarai Almanza [facility]Ptel: [phone] [place] ([place] New Patient 01/22/2015 Patient Education: Patient Medication Summary Completed 01/22/2015 Patient Education: Hypertension Completed 01/22/2015 [facility] Referral Initiated Instructions Comment steroid shot today [...] have surgical fixation - planning occurring at [facility]. Snoring - Sleep apnea symptoms with difficulty [...] to further attempt to reduce peripheral edema. JXPN-wrjddxcb-xojdkatc prilosec BID and carafate QID -discussed low [...] be better served by Dr. Betancur at [facility]. I have recommended a referral to [...]
--- OUTSIDE RECORDS SUMMARY | 2020-01-16 23:21 | XMS REPORT | CCD ---
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 [place] Medicare Part B [id number] 2017 Unknown Family history Father Diagnosis Age At Onset Hyperlipidemia Unknown Heart Attack Unknown Mother Diagnosis Age At Onset Arthritis Unknown Social History Social History Element Codes Description Effective Dates Marital status Unknown M arried Nathan 09/30/2016 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 Number of children Unknown 3 01/22/[address]: 371269699 Never smoker 01/22/[address]: 083969440 Never drinks alcohol 01/22/2015 Allergies, Adverse Reactions, Alerts Substance Reaction Codes Entered Date Inactivated Date Status * NO KNOWN DRUG ORIN RGIES Unknown 01/22/2015 No Inactive Date Active Past Medical History Illness Codes Condition Status Onset Date Resolved Date Hypothyroidism, unsp ecified ICD-9: 244.9 ICD-10: E03.9 Active 05/27/2017 Unknown custodial (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 ICD-9: V58.61 ICD-10: Z79.01 Active 05/27/2017 Unknown Essential (primary) hypertension ICD-9: 401.9 ICD-10: [...] 780.79 ICD-10: R53.83 Active 08/20/2016 Unknown 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 ICD-9: V58.69 ICD-10: [...] ecified ICD-9: 244.9 ICD-10: E03.9 05/27/2017 Active 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 ICD-9: V58.61 ICD-10: Z79.01 05/27/2017 Active Essential (primary) hypertension ICD-9: 401.9 ICD-10: [...] ICD-9: 780.79 ICD-10: R53.83 08/20/2016 Active 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 ICD-9: V58.69 ICD-10: [...] E R 20 mEq tablet,extended release RxNorm: 237013 1 Tablet(s) PO daily 09/02/2018 12/30/2018 Active Plavix 75 mg tablet RxNorm: 458623 TAKE ONE TABLET BY MOUTH DAILY 09/02/2018 02/28/2019 Ac tive Keflex 500 mg capsule RxNorm: 334879 1 Capsule(s) PO TID 09/02/2018 09/08/2018 Active Kenalog 40 mg/mL maxine pension for injection RxNorm: 2738957 Milliliter(s) Inj 09/02/2018 09/02/2018 In active prednisone 10 mg tablet RxNorm: 249828 Tablet(s) PO 09/02/2018 No Stop Date Active 60,60,50,50,40,40,30,30,20,20,10,10 Synthroid 125 mcg ta blet RxNorm: 614966 1 Tablet(s) PO daily 09/02/2018 08/27/2019 Active potassium chloride E R 20 mEq tablet,extended release RxNorm: 507312 1 Tablet(s) PO daily 09/02/2018 09/01/2018 Inactive Synthroid 125 mcg ta blet RxNorm: 509172 1 Tablet(s) PO daily 09/02/2018 09/01/2018 Inactive Lipitor 40 mg tablet RxNorm: 513310 TAKE ONE TABLET BY MOUTH DAILY 07/29/2018 07/23/2019 Ac tive Coumadin 1 mg tablet RxNorm: 793669 TAKE ONE TABLET BY MOUTH DAILY 07/29/2018 10/26/2018 Ac tive Carafate 1 gram tablet RxNorm: 235564 TAKE ONE TABLET BY MOUTH BEFORE MEALS AN D AT BEDTIME 07/28/2018 09/17/2018 Active Coumadin 4 mg tablet RxNorm: 157137 2 Tablet(s) daily 07/11/2018 02/05/2019 Active Amilcari dani For:COUMADIN 4MG 07/22/2017 8:58:26 AM Coumadin 5 mg tablet RxNorm: 863264 Tablet(s) TAKE 1 TABLET BY MOUTH DIRE CTED 07/08/2018 01/03/2019 Ac tive Generic For:COUMADIN 5MG TAB 03/21/2018 9:13:00 AM Coumadin 4 mg tablet RxNorm: 210376 Tablet(s) TAKE 1 TABLET BY MOUTH THREE T IMES PER WEEK (WEDNESDAY, WEDNESDAY AND WEDNESDAY) 07/08/2018 07/10/2018 Inactive Gene andre For:COUMADIN 4MG 07/22/2017 8:58:26 AM Coumadin 1 mg tablet RxNorm: 714036 1 Tablet(s) PO daily 07/08/2018 08/06/2018 Inactive venlafaxine ER 75 mg capsule,extended release 24 hr RxNorm: 296242 Capsule(s) TAKE 1 CAPSULE BY MOUTH ONCE DAILY 06/23/2018 06/17/2019 Active Generic For:*EFFEXOR XR 75MG 06/19/2017 12:23:45 PM sodium bicarbonate 6 50 mg tablet RxNorm: 769117 Tablet(s) TAKE 2 TABL ETS BY MOUTH TWICE DAILY 06/23/2018 12/19/2018 Active 12/20/2017 9:10:59 AM Coumadin 1 mg tablet RxNorm: 797546 1 Tablet(s) PO daily 06/17/2018 07/07/2018 Inactive Coumadin 1 mg tablet RxNorm: 544075 1 Tablet(s) PO daily 06/17/2018 06/16/2018 Inactive clonazepam 0.5 mg ta blet RxNorm: 902204 1 Tablet(s) PO BID 06/08/2018 11/04/2018 Active spironolactone 25 mg tablet RxNorm: 057566 TAKE 1 TABLET BY MOUT H EVERY DAY 05/18/2018 05/12/2019 Ac tive Generic For:*ALDACTONE 25MG 05/18/2018 8:57:50 AM Carafate 1 gram tablet RxNorm: 236498 TAKE ONE TABLET BY MOUTH BEFORE MEALS AN D AT BEDTIME 05/18/2018 07/12/2018 Inactive Generic For:CARAFATE 1GM 1 07/18/2017 8:38:28 AM Synthroid 137 mcg ta blet RxNorm: 720901 TAKE 1 TABLET BY MOUT H ONCE DAILY 05/18/2018 08/30/2018 In active Generic For:SYNTHROID 137MCG TAB 2017 8:57:54 AM allopurinol 300 mg t ablet RxNorm: 820597 TAKE 1 TABLET BY MOUT H ONCE DAILY. 04/18/2018 10/14/2018 Ac tive Generic For:ZYLOPRIM 300 MG TABLET 03/22 9:13:47 AM Lasix 20 mg tablet RxNorm: 712216 TAKE ONE TABLET BY MOUTH DAILY 04/18/2018 08/15/2018 In active Generic For:LASIX 20MG 04/18/2018 9:13: 50 AM Carafate 1 gram tablet RxNorm: 128579 TAKE ONE TABLET BY MOUTH BEFORE MEALS AN D AT BEDTIME 04/18/2018 05/17/2018 Inactive Generic For:CARAFATE 1GM 1 9:32:51 AM Coumadin 5 mg tablet RxNorm: 139804 TAKE 1 TABLET BY MOUTH DIRECTED 03/21/2018 07/07/2018 In active Generic For:COUMADIN 5MG TAB 03/21/2018 9:13:00 AM Carafate 1 gram tablet RxNorm: 786471 TAKE ONE TABLET BY MOUTH BEFORE MEALS AN D AT BEDTIME 03/21/2018 04/17/2018 Inactive Generic For:CARAFATE 1GM 1 9:14:24 AM Carafate 1 gram tablet RxNorm: 345011 1 Tablet(s) PO AC & HS 02/17/2018 03/20/2018 Inactive atenolol 100 mg tablet RxNorm: 347419 1 Tablet(s) PO daily 02/04/2018 09/01/2018 Inactive atenolol 50 mg tablet RxNorm: 077920 1 Tablet(s) PO daily 02/03/2018 02/03/2018 Inactive omeprazole 20 mg cap sean,delayed release RxNorm: 611652 1 Capsule(s) BID 01/21/2018 01/15/2019 Ac tive Generic For:PRILOSEC 20MG 07/22/2017 8:5 8:20 AM Carafate 1 gram tablet RxNorm: 903307 1 Tablet(s) PO AC & HS 01/21/2018 02/16/2018 Inactive Carafate 1 gram tablet RxNorm: 526726 1 Tablet(s) PO AC & HS 01/18/2018 01/20/2018 Inactive Carafate 1 gram tablet RxNorm: 867307 1 Tablet(s) PO AC & HS 01/18/2018 02/27/2018 Inactive Carafate 1 gram tablet RxNorm: 099892 1 Tablet(s) PO AC & HS TAKE ONE TABLET B Y MOUTH TWICE DAILY 01/18/2018 05/17/2018 Inactive Generic For:CARAFATE 1GM 0 12/20/2017 9:10:56 AM omeprazole 20 mg cap sean,delayed release RxNorm: 396416 Capsule(s) TAKE 1 CAP SEAN BY MOUTH EVERY DAY 01/17/2018 01/20/2018 Inactive Generic For:PRILOSEC 20MG 0 07/22/2017 8:58:20 AM omeprazole 20 mg cap sean,delayed release RxNorm: 613140 Capsule(s) TAKE 1 CAP SEAN BY MOUTH EVERY DAY 01/14/2018 01/16/2018 Inactive Generic For:PRILOSEC 20MG 07/22/2017 8:58:20 AM clonazepam 0.5 mg ta blet RxNorm: 158721 1 Tablet(s) PO BID 01/07/2018 06/05/2018 Inactive Plavix 75 mg tablet RxNorm: 800166 1 Tablet(s) PO daily 01/07/2018 07/05/2018 Inactive Carafate 1 gram tablet RxNorm: 801646 1 Tablet(s) PO AC & HS 01/04/2018 01/17/2018 Inactive Lasix 20 mg tablet RxNorm: 709985 TAKE ONE TABLET BY MOUTH DAILY 12/20/2017 04/17/2018 In active Generic For:LASIX 20MG 12/20/2017 9:11: 03 AM sodium bicarbonate 6 50 mg tablet RxNorm: 138153 TAKE 2 TABLETS BY JAVON TH TWICE DAILY 12/20/2017 06/17/2018 In active 12/20/2017 9:10:59 AM Carafate 1 gram tablet RxNorm: 967853 TAKE ONE TABLET BY MOUTH TWICE DAILY 12/20/2017 01/17/2018 In active Generic For:CARAFATE 1GM 12/20/2017 9:1 0:56 AM Synthroid 137 mcg ta blet RxNorm: 485554 TAKE 1 TABLET BY MOUT H ONCE DAILY 11/19/2017 05/17/2018 In active Generic For:SYNTHROID 137MCG TAB 2017 8:58:04 AM Detrol LA 4 mg capsu le,extended release RxNorm: 906364 TAKE 1 CAPSULE BY JAVON TH ONCE DAILY 10/20/2017 04/13/2018 Inactive Generic For:DETROL LA 4MG C AP 10/20/2017 9:01:56 AM allopurinol 300 mg t ablet RxNorm: 137730 TAKE 1 TABLET BY MOUT H ONCE DAILY. 10/20/2017 04/17/2018 In active Generic For:ZYLOPRIM 300 MG TABLET 07/2017 9:01:59 AM Coumadin 5 mg tablet RxNorm: 863215 1 Tablet(s) PO UD 10/01/2017 03/20/2018 Inactive cyclobenzaprine 5 mg tablet RxNorm: 748746 1 Tablet(s) PO TID as needed myscle spasm 09/23/2017 10/12/2017 Inactive Lipitor 40 mg tablet RxNorm: 404787 TAKE 1 TABLET BY MOUTH ONCE DAILY 09/20/2017 07/28/2018 In active Generic For:LIPITOR 40MG 09/20/2017 8:5 6:04 AM atenolol 100 mg tablet RxNorm: 412974 1 Tablet(s) PO daily 08/30/2017 02/03/2018 Inactive atenolol 50 mg tablet RxNorm: 064059 1 Tablet(s) PO daily 08/30/2017 08/30/2017 Inactive Lovenox 30 mg/0.3 mL subcutaneous syringe RxNorm: 612349 0.3 Milliliter(s) SQ Q12H 08/24/2017 09/06/2017 In active Lasix 20 mg tablet RxNorm: 352307 TAKE ONE TABLET BY MOUTH DAILY 08/23/2017 12/19/2017 In active Generic For:LASIX 20MG 08/21/2017 9:04: 27 AM Synthroid 137 mcg ta blet RxNorm: 921978 TAKE 1 TABLET BY MOUT H ONCE DAILY 08/23/2017 11/18/2017 In active Generic For:SYNTHROID 137MCG TAB 2017 9:04:30 AM Lovenox 30 mg/0.3 mL subcutaneous syringe RxNorm: 275978 0.3 Milliliter(s) SQ Q12H 08/10/2017 08/23/2017 In active clonazepam 0.5 mg ta blet RxNorm: 359337 1 Tablet(s) PO BID 08/04/2017 12/30/2017 Inactive Coumadin 4 mg tablet RxNorm: 881007 TAKE 1 TABLET BY MOUTH THREE TIMES PER W LA JOLLA (WEDNESDAY, WEDNESDAY AND WEDNESDAY) 07/22/2017 02/16/2018 Inactive Generic For:COUMADIN 4MG 07/22/2017 8:58:26 AM omeprazole 20 mg cap sean,delayed release RxNorm: 429203 TAKE 1 CAPSULE BY JAVON TH EVERY DAY 07/22/2017 01/13/2018 Inactive Generic For:PRILOSEC 20MG 07/22/2017 8: 58:20 AM Coumadin 4 mg tablet RxNorm: 718378 TAKE 1 TABLET BY MOUTH THREE TIMES PER W LA JOLLA (WEDNESDAY, WEDNESDAY AND WEDNESDAY) 07/22/2017 02/16/2018 Inactive Generic For:COUMADIN 4MG 07/22/2017 8:58:26 AM sodium bicarbonate 6 50 mg tablet RxNorm: 208219 TAKE 2 TABLETS BY JAVON TH TWICE DAILY 06/22/2017 12/18/2017 In active 06/19/2017 12:23:30 PM venlafaxine ER 75 mg capsule,extended release 24 hr RxNorm: 755509 TAKE 1 CAPSULE BY MOUTH ONCE DAILY 06/22/2017 06/16/2018 Inactive Generic For:*EFFEXOR XR 75M G 06/19/2017 12:23:45 PM Coumadin 5 mg tablet RxNorm: 704591 1 Tablet(s) PO UD 06/01/2017 09/30/2017 Inactive Keflex 500 mg capsule RxNorm: 149890 1 Capsule(s) PO TID 05/27/2017 06/02/2017 Inactive Synthroid 137 mcg ta blet RxNorm: 070707 TAKE 1 TABLET BY MOUT H ONCE DAILY 05/24/2017 08/21/2017 In active Generic For:SYNTHROID 137MCG TAB 2016 8:55:59 AM Carafate 1 gram tablet RxNorm: 019389 TAKE ONE TABLET BY MOUTH TWICE DAILY 05/24/2017 12/19/2017 In active Generic For:CARAFATE 1GM 05/24/2017 8:5 5:54 AM spironolactone 25 mg tablet RxNorm: 899987 1 Tablet(s) PO daily 05/24/2017 05/17/2018 Inactive Detrol LA 4 mg capsu le,extended release RxNorm: 784684 1 Capsule(s) PO daily TAKE 1 CAPSULE BY MOUTH ONCE DAILY 05/10/2017 10/19/2017 Inactive Generic For:DETROL LA 4MG CAP 02/19/2017 2:36:00 PM Lasix 20 mg tablet RxNorm: 307811 TAKE ONE TABLET BY MOUTH DAILY 04/23/2017 08/20/2017 In active Generic For:LASIX 20MG 04/23/2017 9:04: 01 AM Coumadin 4 mg tablet RxNorm: 537623 TAKE 1 TABLET BY MOUTH THREE TIMES PER W LA JOLLA (WEDNESDAY, WEDNESDAY AND WEDNESDAY) 04/23/2017 07/21/2017 Inactive Generic For:COUMADIN 4MG 04/23/2017 9:04:05 AM allopurinol 300 mg t ablet RxNorm: 417248 TAKE 1 TABLET BY MOUT H ONCE DAILY. 04/23/2017 10/19/2017 In active Generic For:ZYLOPRIM 300 MG TABLET 08/2016 9:03:57 AM potassium chloride 2 0 mEq/15 mL oral liquid RxNorm: 771550 Milliliter(s) 30 Milliliter(s) (40mEq) PO daily 03/24/2017 07/21/2017 Inactive Lovenox 30 mg/0.3 mL subcutaneous syringe RxNorm: 580935 0.3 Milliliter(s) SQ Q12H 03/22/2017 03/26/2017 In active Lovenox 30 mg/0.3 mL subcutaneous syringe RxNorm: 477215 0.3 Milliliter(s) SQ Q12H 03/19/2017 03/20/2017 In active Lovenox 30 mg/0.3 mL subcutaneous syringe RxNorm: 103278 0.3 Milliliter(s) SQ Q12H 03/16/2017 03/18/2017 In active clonazepam 0.5 mg ta blet RxNorm: 323055 1 Tablet(s) PO BID 03/02/2017 07/28/2017 Inactive Lovenox 30 mg/0.3 mL subcutaneous syringe RxNorm: 632673 1 injection SQ BID do NOT take the night time dose the day before surgery, or the morning dose the day of surgery 03/01/2017 03/07/2017 Inactive Lovenox 30 mg/0.3 mL subcutaneous syringe RxNorm: 408279 1 injection SQ BID 03/01/2017 02/28/2017 In active Detrol LA 4 mg capsu le,extended release RxNorm: 750984 TAKE 1 CAPSULE BY JAVON TH ONCE DAILY 02/19/2017 05/09/2017 Inactive Generic For:DETROL LA 4MG C AP 02/19/2017 2:36:00 PM hydrocodone 5 mg-humberto taminophen 325 mg tablet RxNorm: 013709 1-2 Tablet(s) PO Q6 P RN 02/04/2017 No Stop Date Active Zetia 10 mg tablet RxNorm: 182091 TAKE 1 TABLET BY MOUTH DAILY 01/25/2017 04/13/2018 Inactive 01/23/2017 9:03:48 AM omeprazole 20 mg cap sean,delayed release RxNorm: 732489 TAKE 1 CAPSULE BY JAVON TH EVERY DAY 01/25/2017 07/21/2017 Inactive Generic For:PRILOSEC 20MG 01/23/2017 9: 03:45 AM Coumadin 4 mg tablet RxNorm: 063337 TAKE 1 TABLET BY MOUTH THREE TIMES PER W LA JOLLA (WEDNESDAY, WEDNESDAY AND WEDNESDAY) 01/25/2017 04/22/2017 Inactive Generic For:COUMADIN 4MG 01/23/2017 9:03:51 AM sodium bicarbonate 6 50 mg tablet RxNorm: 621321 TAKE 2 TABLETS BY JAVON TH TWICE DAILY 12/24/2016 06/21/2017 In active 12/24/2016 9:09:27 AM Lasix 20 mg tablet RxNorm: 424945 1 Tablet(s) PO daily 12/24/2016 04/22/2017 Inactive Synthroid 137 mcg ta blet RxNorm: 835576 TAKE 1 TABLET BY MOUT H ONCE DAILY 11/24/2016 05/22/2017 In active Generic For:SYNTHROID 137MCG TAB 2016 9:04:37 AM Coumadin 4 mg tablet RxNorm: 330704 TAKE 1 TABLET BY MOUTH THREE TIMES PER W LA JOLLA (WEDNESDAY, WEDNESDAY AND WEDNESDAY) 11/24/2016 01/22/2017 Inactive Generic For:COUMADIN 4MG 11/24/2016 9:04:41 AM hydrocodone 5 mg-humberto taminophen 325 mg tablet RxNorm: 784813 1-2 Tablet(s) PO Q6 P RN 11/17/2016 02/03/2017 In active Carafate 1 gram tablet RxNorm: 782312 TAKE ONE TABLET BY MOUTH TWICE DAILY 10/27/2016 05/23/2017 In active Generic For:CARAFATE 1GM 10/26/2016 8:3 9:42 AM allopurinol 300 mg t ablet RxNorm: 680928 Tablet(s) TAKE 1 TABL ET BY MOUTH ONCE DAILY. 10/26/2016 04/22/2017 Inactive Lipitor 40 mg tablet RxNorm: 529076 1 Tablet(s) PO daily 09/25/2016 09/19/2017 Inactive Coumadin 4 mg tablet RxNorm: 267162 TAKE 1 TABLET BY MOUTH THREE TIMES PER W LA JOLLA (WEDNESDAY, WEDNESDAY AND WEDNESDAY) 09/25/2016 11/23/2016 Inactive Generic For:COUMADIN 4MG 09/25/2016 8:55:58 AM Zetia 10 mg tablet RxNorm: 755245 1 Tablet(s) PO daily 09/25/2016 01/22/2017 Inactive gave 1 month of samples clonazepam 0.5 mg ta blet RxNorm: 831854 1 Tablet(s) PO BID 09/21/2016 02/16/2017 Inactive Lasix 20 mg tablet RxNorm: 1 Tablet(s) PO daily 09/15/2016 12/23/2016 Inactive potassium chloride 2 0 mEq/15 mL oral liquid RxNorm: 041194 Milliliter(s) 30 Milliliter(s) (40mEq) PO daily 09/15/2016 01/12/2017 Inactive Lasix 20 mg tablet RxNorm: 2 Tablet(s) PO daily 09/10/2016 09/12/2016 Inactive Lasix 20 mg tablet RxNorm: 1 Tablet(s) PO daily 08/28/2016 08/30/2016 Inactive Lasix 20 mg tablet RxNorm: 1 Tablet(s) PO daily 08/20/2016 08/22/2016 Inactive Detrol LA 4 mg capsu le,extended release RxNorm: 974770 TAKE 1 CAPSULE BY JAVON TH ONCE DAILY 07/27/2016 02/18/2017 Inactive Generic For:DETROL LA 4MG C AP 07/27/2016 9:08:27 AM Coumadin 4 mg tablet RxNorm: 289641 1 Tablet(s) PO 3 x week e and sun 07/27/2016 09/24/2016 In active omeprazole 20 mg cap sean,delayed release RxNorm: 926619 Capsule(s) PO TAKE 1 CAPSULE BY MOUTH ONCE DAILY 07/27/2016 01/22/2017 Inactive venlafaxine ER 75 mg capsule,extended release 24 hr RxNorm: 794469 1 Capsule(s) PO daily 06/29/2016 06/21/2017 Inactive sodium bicarbonate 6 50 mg tablet RxNorm: 833524 TAKE 2 TABLETS BY [facility] TWICE DAILY 06/29/2016 12/23/2016 In active 06/27/2016 9:05:39 AM Coumadin 4 mg tablet RxNorm: 208223 1 Tablet(s) PO 3 x week wed and sun 06/09/2016 06/08/2016 In active Coumadin 4 mg tablet RxNorm: 352886 1 Tablet(s) PO 3 x week [facility] and sun 06/09/2016 07/26/2016 In active Zetia 10 mg tablet RxNorm: 200997 1 Tablet(s) PO daily 06/09/2016 06/08/2016 Inactive gave 1 month of samples Zetia 10 mg tablet RxNorm: 803877 1 Tablet(s) PO daily 06/09/2016 09/24/2016 Inactive gave 1 month of samples Effexor 75 mg tablet RxNorm: 194425 1 Tablet(s) PO daily 06/08/2016 06/28/2016 Inactive spironolactone 25 mg tablet RxNorm: 165959 1 Tablet(s) PO daily 06/08/2016 05/23/2017 Inactive Synthroid 137 mcg ta blet RxNorm: 453629 1 Tablet(s) PO daily 05/07/2016 11/02/2016 Inactive allopurinol 300 mg t ablet RxNorm: 945211 Tablet(s) TAKE 1 TABL ET BY MOUTH ONCE DAILY. 04/28/2016 10/24/2016 Inactive clonazepam 0.5 mg ta blet RxNorm: 270285 1 Tablet(s) PO BID 04/20/2016 09/15/2016 Inactive Flonase Allergy Reli ef 50 mcg/actuation nasal spray,suspension RxNorm: 0949593 1 [place] NASAL BID 04/02/2016 No Stop Date Active Zithromax Z-Thomas 250 mg tablet RxNorm: 638944 Tablet(s) PO 04/02/2016 08/27/2016 Inactive cetirizine 10 mg tablet RxNorm: 4699834 1 Tablet(s) PO daily 04/02/2016 05/01/2016 Inactive Carafate 1 gram tablet RxNorm: 162965 Tablet(s) TAKE 1 TABLET TWICE A DAY FOR 30 DAYS 03/30/2016 10/25/2016 Inactive Generic For:CARAFATE 1GM 02/08/2015 12:3 6:39 PM Plavix 75 mg tablet RxNorm: 458916 1 Tablet(s) PO daily 03/11/2016 09/06/2016 Inactive sodium bicarbonate 6 50 mg tablet RxNorm: 099297 Tablet(s) 2 Tablet(s) PO BID 02/28/2016 06/26/2016 In active omeprazole 20 mg cap sean,delayed release RxNorm: 818432 Capsule(s) PO TAKE 1 CAPSULE BY MOUTH ONCE DAILY 01/31/2016 07/26/2016 Inactive Fish Oil 1,000 mg ca psule RxNorm: 1 Capsule(s) PO BID 01/14/2016 No Stop Date Active Synthroid 137 mcg ta blet RxNorm: 718032 1 Tablet(s) PO daily 01/14/2016 05/06/2016 Inactive Detrol LA 4 mg capsu le,extended release RxNorm: 713154 TAKE 1 CAPSULE BY JAVON TH ONCE DAILY 12/30/2015 07/26/2016 Inactive Generic For:DETROL LA 4MG C AP 12/30/2015 9:11:01 AM potassium chloride 2 0 mEq/15 mL oral liquid RxNorm: 280015 Milliliter(s) 30 Milliliter(s) (40mEq) PO daily 12/02/2015 03/30/2016 Inactive sodium bicarbonate 6 50 mg tablet RxNorm: 825781 Tablet(s) 2 Tablet(s) PO BID 10/31/2015 02/27/2016 In active Lipitor 40 mg tablet RxNorm: 101665 1 Tablet(s) PO daily 10/09/2015 09/24/2016 Inactive sodium bicarbonate 6 50 mg tablet RxNorm: 047167 2 Tablet(s) PO BID 10/01/2015 10/30/2015 Inactive allopurinol 300 mg t ablet RxNorm: 781710 TAKE 1 TABLET BY MOUT H ONCE DAILY. 10/01/2015 04/27/2016 In active Generic For:ZYLOPRIM 300 MG TABLET 09/19 9:21:15 AM clonazepam 0.5 mg ta blet RxNorm: 687006 1 Tablet(s) PO BID 09/30/2015 04/19/2016 Inactive Coumadin 5 mg tablet RxNorm: 172771 1 Tablet(s) PO daily 09/27/2015 05/31/2017 Inactive Generic For:COUMADIN 5MG TAB N O T I C E PRESCRIPTION PREVIOUSLY AUTHORIZED BY DOCTOR:BOBBY ZULETA Synthroid 125 mcg ta blet RxNorm: 917910 1 Tablet(s) PO daily 09/27/2015 09/26/2015 Inactive Synthroid 125 mcg ta blet RxNorm: 809558 1 Tablet(s) PO daily 09/27/2015 01/13/2016 Inactive Carafate 1 gram tablet RxNorm: 549734 Tablet(s) TAKE 1 TABLET TWICE A DAY FOR 30 DAYS 09/02/2015 03/29/2016 Inactive Generic For:CARAFATE 1GM 02/08/2015 12:3 6:39 PM sodium bicarbonate 6 50 mg tablet RxNorm: 372061 2 Tablet(s) PO BID 09/02/2015 09/30/2015 Inactive Prilosec 20 mg capsu le,delayed release RxNorm: 949790 TAKE 1 CAPSULE BY JAVON TH ONCE DAILY 08/02/2015 01/28/2016 Inactive Generic For:PRILOSEC 20MG 08/02/2015 10:03:09 AM N O T I C E PRESCRIPTION PREVIOUSLY AUTHORIZED BY DOCTOR:BOBBY ZULETA Zyrtec 10 mg capsule RxNorm: 9123612 1 Capsule(s) PO daily 07/15/2015 08/13/2015 Inactive Keflex 500 mg capsule RxNorm: 353281 1 Capsule(s) PO TID 07/15/2015 07/21/2015 Inactive cetirizine 10 mg cap sean RxNorm: 9505554 1 Capsule(s) PO daily 07/15/2015 08/13/2015 Inactive hydrocodone 5 mg-humberto taminophen 325 mg tablet RxNorm: 644181 1-2 Tablet(s) PO Q6 P RN 06/10/2015 11/16/2016 In active sodium bicarbonate 6 50 mg tablet RxNorm: 927522 2 Tablet(s) PO BID 06/03/2015 08/31/2015 Inactive Detrol LA 4 mg capsu le,extended release RxNorm: 353330 TAKE 1 CAPSULE BY JAVON TH ONCE DAILY 06/03/2015 12/29/2015 Inactive Generic For:DETROL LA 4MG C AP N O T I C E PRESCRIPTION PREVIOUSLY AUTHORIZED BY DOCTOR:BOBBY ZULETA atenolol 50 mg tablet RxNorm: 388709 1 Tablet(s) PO daily TAKE 1 TABLET BY MO UTH DAILY 05/07/2015 08/23/2017 Inactive Generic For:TENORMIN 50MG 05/04/2015 9:07:22 AM spironolactone 25 mg tablet RxNorm: 513638 1 Tablet(s) PO daily 05/06/2015 06/07/2016 Inactive venlafaxine ER 75 mg capsule,extended release 24 hr RxNorm: 798014 1 Capsule(s) PO daily 05/04/2015 06/28/2016 Inactive atenolol 50 mg tablet RxNorm: 519471 TAKE 1 TABLET BY MOUTH DAILY 05/04/2015 05/06/2015 Inactive Generic For:TENORMIN 50MG 05/04/2015 9: 07:22 AM Synthroid 150 mcg ta blet RxNorm: 712676 TAKE 1 TABLET BY MOUT H ONCE DAILY. 04/05/2015 09/26/2015 In active Generic For:SYNTHROID 150MCG TAB 2014 4:45:40 PM N O T I C E PRESCRIPTION PREVIOUSLY AUTHORIZED BY DOCTOR:BOBBY ZULETA Effexor 75 mg tablet RxNorm: 841397 1 Tablet(s) PO daily 04/05/2015 07/03/2015 Inactive Coumadin 5 mg tablet RxNorm: 290303 TAKE 1 AND 1/2 TABLETS BY MOUTH ONCE MYRANDA LY 04/04/2015 09/26/2015 In active Generic For:COUMADIN 5MG TAB N O T I C E PRESCRIPTION PREVIOUSLY AUTHORIZED BY DOCTOR:BOBBY ZULETA clonazepam 0.5 mg ta blet RxNorm: 060605 1 Tablet(s) PO BID 03/13/2015 11/05/2015 Inactive sodium bicarbonate 6 50 mg tablet RxNorm: 347880 2 Tablet(s) PO BID 03/08/2015 06/02/2015 Inactive allopurinol 300 mg t ablet RxNorm: 032529 TAKE 1 TABLET BY MOUT H ONCE DAILY. 03/05/2015 09/30/2015 In active N O T I C E PRESCRIPTION PREVIOUSLY A UTHORIZED BY DOCTOR:BOBBY ZULETA Plavix 75 mg tablet RxNorm: 418971 1 Tablet(s) PO daily 02/12/2015 09/09/2015 Inactive clonazepam 0.5 mg ta blet RxNorm: 748955 1 Tablet(s) PO BID 02/11/2015 03/11/2015 Inactive Carafate 1 gram tablet RxNorm: 619256 TAKE 1 TABLET TWICE A DAY FOR 30 DAYS 02/08/2015 02/07/2015 In active Generic For:CARAFATE 1GM 02/08/2015 12:3 6:39 PM Carafate 1 gram tablet RxNorm: 850794 Tablet(s) TAKE 1 TABLET TWICE A DAY FOR 30 DAYS 02/08/2015 09/01/2015 Inactive Generic For:CARAFATE 1GM 02/08/2015 12:3 6:39 PM potassium chloride 2 0 mEq/15 mL oral liquid RxNorm: 543008 30 Milliliter(s) (40m Eq) PO daily 02/05/2015 12/01/2015 Inactive atenolol 50 mg tablet RxNorm: 804406 1 Tablet(s) PO daily 02/04/2015 05/03/2015 Inactive [SAVINGS FOR NON-COVERED DRUGS -- BIN:00 3585, PCN: [id number], Group: XXXXX, ID# [id number], Questions: . THIS IS NOT INSURANCE.] potassium chloride 2 0 mEq/15 mL oral liquid RxNorm: 365056 30 Milliliter(s) (40m Eq) PO daily 01/08/2015 02/04/2015 Inactive potassium chloride 2 0 mEq/15 mL oral liquid RxNorm: 788731 30 Milliliter(s) (40m Eq) PO daily 12/07/2014 01/07/2015 Inactive atenolol 50 mg tablet RxNorm: 505854 1 Tablet(s) PO daily 11/09/2014 11/08/2014 Inactive atenolol 50 mg tablet RxNorm: 831206 1 Tablet(s) PO daily 11/09/2014 02/03/2015 Inactive [SAVINGS FOR NON-COVERED DRUGS -- BIN:00 5835, PCN: [id number], Group: XXXXX, ID# [id number], Questions: . THIS IS NOT INSURANCE.] Voltaren 1 % topical gel RxNorm: 480614 TOP No St art Date Active verapamil ER (HS) 24 0 mg tablet,extended release 24 hr RxNorm: 956913 1 Tablet(s) PO daily No Start Date Active aspirin 81 mg tablet RxNorm: 077074 1 Tablet(s) PO daily No Start Date Active Zofran 4 mg tablet RxNorm: 594134 1 Tablet(s) PO PRN No Start Date Active B12 1000 mcg RxNorm: 1 Tablet(s) PO daily No Start Date Active magnesium oxide 400 mg capsule RxNorm: 758600 2 Capsule(s) PO BID No Start Date Active Synthroid 150 mcg ta blet RxNorm: 197511 1 Tablet(s) PO daily No Start Date 04/04/2015 Inactive Coumadin 5 mg tablet RxNorm: 049702 1 Tablet(s) PO daily No Start Date 04/03/2015 Inactive cranberry 1,000 mg c apsule RxNorm: 848519 1 Capsule(s) PO daily No Start Date 04/13/2018 Inactive allopurinol 300 mg t ablet RxNorm: 668156 1 Tablet(s) PO daily No Start Date 03/04/2015 Inactive Prilosec 20 mg capsu le,delayed release RxNorm: 491245 1 Capsule(s) PO PRN No Start Date 08/01/2015 Inactive potassium chloride 2 0 mEq/15 mL oral liquid RxNorm: 524295 30 Milliliter(s) (40m Eq) PO daily No Start Date 12/06/2014 Inactive atenolol 50 mg tablet RxNorm: 179212 1 Tablet(s) PO daily No Start Date 08/29/2017 Inactive Lipitor 40 mg tablet RxNorm: 451523 1 Tablet(s) PO daily No Start Date 09/19/2017 Inactive Effexor 75 mg tablet RxNorm: 365769 1 Tablet(s) PO daily No Start Date 04/04/2015 Inactive Carafate 1 gram tablet RxNorm: 860361 1 Tablet(s) PO BID No Start Date 02/07/2015 Inactive clonazepam 0.5 mg ta blet RxNorm: 337688 1 Tablet(s) PO BID No Start Date 02/10/2015 Inactive Plavix 75 mg tablet RxNorm: 899187 1 Tablet(s) PO daily No Start Date 02/11/2015 Inactive sodium bicarbonate 6 50 mg tablet RxNorm: 036028 2 Tablet(s) PO BID No Start Date 09/01/2015 Inactive Lovenox 30 mg/0.3 mL subcutaneous syringe RxNorm: 404279 0.3 Milliliter(s) SQ Q12H No Start Date 03/15/2017 Inactive Fish Oil 1,000 mg ca psule RxNorm: 1 Capsule(s) PO daily No Start Date 01/13/2016 Inactive Detrol LA 4 mg capsu le,extended release RxNorm: 111586 1 Capsule(s) PO daily No Start Date 06/02/2015 Inactive Medication Administered No Medication Administered data Immunizations Vaccine Codes Date Status SHINGARIX CVX: 121 03/23 completed Assessments Condition Codes Effectiv e Dates Hypothyroidism, unspecified ICD-10: E03.9 ICD-9: 244.9 04/14/2018 [...] fatigue ICD-10: R53.83 ICD-9: 780.79 08/20/2016 Other fpc (current) drug therapy ICD-10: Z79.899 ICD-9: V58.69 [...] Reason For Visit Effective Dates Notes hypertension 04/14/2018 hypertension 01/18/2018 hypertension 01/04/2018 hypertension 09/23/2017 hypertension 05/27/2017 pre-op/surgery consult 02/24/2017 hypertension 11/02/2016 hypertension 09/30/2016 edema 09/10/2016 medication follow up 08/20/2016 medication follow up 06/08/2016 cough 04/02/2016 abdominal pain 01/14/2016 shoulder pain 10/02/2015 edema 07/15/2015 weight gain/obesity 06/10/2015 hernia 01/22/2015 right sided abdomen with previous ileostomy Results Observation Observation Code Item Item Code Result Date Pt Nko5350 PT 29.2 seconds 08/05/2018 Pt Xbk9659 INR 2.8 08/05/2018 Pt Mzo2893 Low Intensity - 1.5-2.0 08/05/2018 Pt Atv0925 Mod intensity - 2.0-3.0 08/05/2018 Pt Egt1620 Hi intensity - 3.0-4.0 08/05/2018 Pt Wdf5360 PT 30.2 seconds 07/25/2018 Pt Skr9695 INR 2.9 07/25/2018 Pt Gvb9039 Low Intensity - 1.5-2.0 07/25/2018 Pt Cxj2218 Mod intensity - 2.0-3.0 07/25/2018 Pt Zex5647 Hi intensity - 3.0-4.0 07/25/2018 Pt Abt3046 PT 25.2 seconds 07/19/2018 Pt Aqi3314 INR 2.3 07/19/2018 Pt Wpq3941 Low Intensity - 1.5-2.0 07/19/2018 Pt Xwq2062 Mod intensity - 2.0-3.0 07/19/2018 Pt Jbq4763 Hi intensity - 3.0-4.0 07/19/2018 Pt Brk9956 PT 17.4 seconds 07/15/2018 Pt Mzq5128 INR 1.5 07/15/2018 Pt Rjd8446 Low Intensity - 1.5-2.0 07/15/2018 Pt Fyc6757 Mod intensity - 2.0-3.0 07/15/2018 Pt Pml5802 Hi intensity - 3.0-4.0 07/15/2018 Pt Olf4116 PT 17.8 seconds 07/08/2018 Pt Ivt2850 INR 1.5 07/08/2018 Pt Ncj8715 Low Intensity - 1.5-2.0 07/08/2018 Pt Tck1344 Mod intensity - 2.0-3.0 07/08/2018 Pt Pya2117 Hi intensity - 3.0-4.0 07/08/2018 Pt Qny7020 PT 19.2 seconds 07/01/2018 Pt Hfs4392 INR 1.7 07/01/2018 Pt Ilr1202 Low Intensity - 1.5-2.0 07/01/2018 Pt Tkc1567 Mod intensity - 2.0-3.0 07/01/2018 Pt Nwk5498 Hi intensity - 3.0-4.0 07/01/2018 Pt Sgx8117 PT 17.4 seconds 06/23/2018 Pt Fyy8067 INR 1.5 06/23/2018 Pt Ojn0827 Low Intensity - 1.5-2.0 06/23/2018 Pt Opb0391 Mod intensity - 2.0-3.0 06/23/2018 Pt Ddb9931 Hi intensity - 3.0-4.0 06/23/2018 Pt Shs6938 PT 18.4 seconds 06/17/2018 Pt Udu2229 INR 1.6 06/17/2018 Pt Cjd5272 Low Intensity - 1.5-2.0 06/17/2018 Pt Ufy6950 Mod intensity - 2.0-3.0 06/17/2018 Pt Eem0840 Hi intensity - 3.0-4.0 06/17/2018 Sed Rate [...] 30.4 pg 06/08/2018 Cbc With Differential Ord2 [place]% 9.4 % 06/08/2018 Cbc With Differential Ord2 [...] 1.20 K/ul 06/08/2018 Cbc With Differential Ord2 [place] ABS# 0.5 K/ul 06/08/2018 Cbc With Differential Ord2 Eos ABS# 0.1 K/ul 06/08/2018 Cbc With Differential Ord2 Baso ABS# 0.1 K/ul 06/08/2018 C-Reactive Protein Qnt Crqnt CRP 0.1 mg/dl 06/08/2018 Pt Xss2972 PT 17.6 seconds 06/08/2018 Pt Zoy9330 INR 1.5 06/08/2018 Pt Kye8968 Low Intensity - 1.5-2.0 06/08/2018 Pt Ewv1119 Mod intensity - 2.0-3.0 06/08/2018 Pt Nat4865 Hi intensity - 3.0-4.0 06/08/2018 Pt Bmc5993 PT 16.8 seconds 05/10/2018 Pt Rqy8951 INR 1.4 05/10/2018 Pt Xnt3768 Low Intensity - 1.5-2.0 05/10/2018 Pt Mlt8829 Mod intensity - 2.0-3.0 05/10/2018 Pt Jzn7858 Hi intensity - 3.0-4.0 05/10/2018 Pt Qpe8415 PT 16.7 seconds 05/04/2018 Pt Sdd9523 INR 1.4 05/04/2018 Pt Dlq0486 Low Intensity - 1.5-2.0 05/04/2018 Pt Nnw2460 Mod intensity - 2.0-3.0 05/04/2018 Pt Ykc3865 Hi intensity - 3.0-4.0 05/04/2018 Free T4 Hdu936 FREE T4 1.09 ng/dL 04/14/2018 Tsh Ord6 TSH (3rd IS) 2.36 uIU/mL 04/14/2018 Pt Nbr3462 PT 20.3 seconds 04/14/2018 Pt Pzk4017 INR 1.8 04/14/2018 Pt Use1714 Low Intensity - 1.5-2.0 04/14/2018 Pt Qxs1435 Mod intensity - 2.0-3.0 04/14/2018 Pt Xkq3759 Hi intensity - 3.0-4.0 04/14/2018 Lipid Ord30 CHOL 149 mg/dL 04/14/2018 Lipid Ord30 HDL 49.0 mg/dl 04/14/2018 Lipid Ord30 TRIG 161 mg/dL 04/14/2018 Lipid Ord30 LDL 68 mg/dL 04/14/2018 Lipid Ord30 C/HDL 3.0 Ratio 04/14/2018 %Hba1C Ckz541 % HbA1c 78478-0 5.9 % 04/14/2018 %Hba1C Twx167 Gluc Ave 123 mg/dL 04/14/2018 Comp Metabolic Keq490 NA 140 mEq/L 04/14/2018 Comp Metabolic Ylg051 K 4.1 mEq/L 04/14/2018 Comp Metabolic Oiz379 CL 105 mEq/L 04/14/2018 Comp Metabolic Rou474 CO2 28.0 mEq/L 04/14/2018 Comp Metabolic Ety964 AN ION GAP 11 04/14/2018 Comp Metabolic Ruy457 GL UCOSE 112 mg/dL 04/14/2018 Comp Metabolic Wcm972 Cr eat 1.0 mg/dL 04/14/2018 Comp Metabolic Gxs938 eG FR 58 ml/min/1.73m2 04/14 Comp Metabolic Cwu464 BUN 20 mg/dL 04/14/2018 Comp Metabolic Maj564 B/ C Ratio 20.2 Ratio 04/14/2018 Comp Metabolic Gtf964 CA LCIUM 10.0 mg/dL 04/14/2018 Comp Metabolic Tqh262 AL K PHOS 51 U/L 04/14/2018 Comp Metabolic Ssp254 T(SGOT) 24 U/L 04/14/2018 Comp Metabolic Wsw991 AL T(SGPT) 21 U/L 04/14/2018 Comp Metabolic Uzz006 BI LI T 0.8 mg/dL 04/14/2018 Comp Metabolic Ecs335 AL BUMIN 4.2 g/dL 04/14/2018 Comp Metabolic Kmh982 TP RO 7.1 g/dL 04/14/2018 Comp Metabolic Joc629 GL OB 2.9 g/dL 04/14/2018 Comp Metabolic Pjp737 A/ G Ratio 1.5 Ratio 04/14/2018 Comp Metabolic Nss255 Os mo 283 mOsmo 04/14/2018 Cbc With [...] 30.7 pg 04/14/2018 Cbc With Differential Ord2 [place]% 10.6 % 04/14/2018 Cbc With Differential Ord2 [...] 1.18 K/ul 04/14/2018 Cbc With Differential Ord2 [place] ABS# 0.5 K/ul 04/14/2018 Cbc With Differential Ord2 Eos ABS# 0.2 K/ul 04/14/2018 Cbc With Differential Ord2 Baso ABS# 0.1 K/ul 04/14/2018 Pt Wfu0086 PT 29.3 seconds 02/11/2018 Pt Nqc5642 INR 2.8 02/11/2018 Pt Rer1500 Low Intensity - 1.5-2.0 02/11/2018 Pt Kef0860 Mod intensity - 2.0-3.0 02/11/2018 Pt Lxs1360 Hi intensity - 3.0-4.0 02/11/2018 Comp Metabolic Hdc953 NA 141 mEq/L 01/05/2018 Comp Metabolic Jio417 K 3.7 mEq/L 01/05/2018 Comp Metabolic Fqr054 CL 102 mEq/L 01/05/2018 Comp Metabolic Jta607 CO2 29.0 mEq/L 01/05/2018 Comp Metabolic Cfk280 AN ION GAP 14 01/05/2018 Comp Metabolic Axs537 GL UCOSE 136 mg/dL 01/05/2018 Comp Metabolic Rbt625 Cr eat 1.0 mg/dL 01/05/2018 Comp Metabolic Zhg219 eG FR 61 ml/min/1.73m2 01/05 Comp Metabolic Wri492 BUN 22 mg/dL 01/05/2018 Comp Metabolic Jut562 B/ C Ratio 22.9 Ratio 01/05/2018 Comp Metabolic Axm443 CA LCIUM 9.7 mg/dL 01/05/2018 Comp Metabolic Ebl694 AL K PHOS 57 U/L 01/05/2018 Comp Metabolic Xsm087 T(SGOT) 21 U/L 01/05/2018 Comp Metabolic Ada154 AL T(SGPT) 19 U/L 01/05/2018 Comp Metabolic Kaz184 BI LI T 0.9 mg/dL 01/05/2018 Comp Metabolic Eyw979 AL BUMIN 4.1 g/dL 01/05/2018 Comp Metabolic Hzr441 TP RO 7.1 g/dL 01/05/2018 Comp Metabolic Sak869 GL OB 3.0 g/dL 01/05/2018 Comp Metabolic Klt741 A/ G Ratio 1.4 Ratio 01/05/2018 Comp Metabolic Sjo800 Os mo 287 mOsmo 01/05/2018 Free T4 Jyq296 FREE T4 1.05 ng/dL 01/05/2018 %Hba1C Svz515 % HbA1c 74587-5 6.0 % 01/05/2018 %Hba1C Hqb405 Gluc Ave 126 mg/dL 01/05/2018 Cbc With [...] 30.6 pg 01/05/2018 Cbc With Differential Ord2 [place]% 10.5 % 01/05/2018 Cbc With Differential Ord2 [...] 1.27 K/ul 01/05/2018 Cbc With Differential Ord2 [place] ABS# 0.5 K/ul 01/05/2018 Cbc With Differential Ord2 Eos ABS# 0.2 K/ul 01/05/2018 Cbc With Differential Ord2 Baso ABS# 0.1 K/ul 01/05/2018 Pt Nrr1102 PT 20.7 seconds 01/05/2018 Pt Cub9502 INR 1.8 01/05/2018 Pt Pzv2529 Low Intensity - 1.5-2.0 01/05/2018 Pt Rau2827 Mod intensity - 2.0-3.0 01/05/2018 Pt Qnl0040 Hi intensity - 3.0-4.0 01/05/2018 Tsh Ord6 TSH (3rd IS) 2.34 uIU/mL 01/05/2018 Lipid Ord30 CHOL 156 mg/dL 01/05/2018 Lipid Ord30 HDL 48.0 mg/dl 01/05/2018 Lipid Ord30 TRIG 207 mg/dL 01/05/2018 Lipid Ord30 LDL 67 mg/dL 01/05/2018 Lipid Ord30 C/HDL 3.3 Ratio 01/05/2018 Pt Rpm4610 PT 28.3 seconds 11/26/2017 Pt Dwf3921 INR 2.6 11/26/2017 Pt Gmb5583 Low Intensity - 1.5-2.0 11/26/2017 Pt Lgh2768 Mod intensity - 2.0-3.0 11/26/2017 Pt Acr2971 Hi intensity - 3.0-4.0 11/26/2017 Pt Amu1312 PT 36.5 seconds 11/19/2017 Pt Nmv7128 INR 3.6 11/19/2017 Pt Baw1995 Low Intensity - 1.5-2.0 11/19/2017 Pt Pzn5934 Mod intensity - 2.0-3.0 11/19/2017 Pt Gdb8921 Hi intensity - 3.0-4.0 11/19/2017 Pt Tew1436 PT 22.9 seconds 10/15/2017 Pt Jyw8445 INR 2.0 10/15/2017 Pt Oqh0017 Low Intensity - 1.5-2.0 10/15/2017 Pt Mfw2049 Mod intensity - 2.0-3.0 10/15/2017 Pt Pgm9193 Hi intensity - 3.0-4.0 10/15/2017 Pt Juc6761 PT 25.9 seconds 10/01/2017 Pt Spe2554 INR 2.4 10/01/2017 Pt Dfy8439 Low Intensity - 1.5-2.0 10/01/2017 Pt Hvd8411 Mod intensity - 2.0-3.0 10/01/2017 Pt Mjk9528 Hi intensity - 3.0-4.0 10/01/2017 Pt Fcy2591 PT 20.6 seconds 09/24/2017 Pt Hso3216 INR 1.8 09/24/2017 Pt Ftk9324 Low Intensity - 1.5-2.0 09/24/2017 Pt Ihj5224 Mod intensity - 2.0-3.0 09/24/2017 Pt Dxs0238 Hi intensity - 3.0-4.0 09/24/2017 Pt Nbj5070 PT 21.0 seconds 09/15/2017 Pt Olk9752 INR 1.8 09/15/2017 Pt Dvz0554 Low Intensity - 1.5-2.0 09/15/2017 Pt Lgj4986 Mod intensity - 2.0-3.0 09/15/2017 Pt Aqa0472 Hi intensity - 3.0-4.0 09/15/2017 Pt Kko1639 PT 19.0 seconds 09/03/2017 Pt Pan1936 INR 1.6 09/03/2017 Pt Zyh6575 Low Intensity - 1.5-2.0 09/03/2017 Pt Elb2696 Mod intensity - 2.0-3.0 09/03/2017 Pt Ssf0222 Hi intensity - 3.0-4.0 09/03/2017 Pt Twv6481 PT 17.6 seconds 08/23/2017 Pt Otf9593 INR 1.5 08/23/2017 Pt Con4199 Low Intensity - 1.5-2.0 08/23/2017 Pt Vqg6618 Mod intensity - 2.0-3.0 08/23/2017 Pt Cfo9727 Hi intensity - 3.0-4.0 08/23/2017 Pt Oqz2685 PT 12.7 seconds 08/20/2017 Pt Mrf6029 INR 1.0 08/20/2017 Pt Oam8119 Low Intensity - 1.5-2.0 08/20/2017 Pt Xat2332 Mod intensity - 2.0-3.0 08/20/2017 Pt Bsa9246 Hi intensity - 3.0-4.0 08/20/2017 Pt Lrg3658 PT 12.9 seconds 08/17/2017 Pt Uiu1719 INR 1.0 08/17/2017 Pt Www2656 Low Intensity - 1.5-2.0 08/17/2017 Pt Khg7790 Mod intensity - 2.0-3.0 08/17/2017 Pt Vpa5629 Hi intensity - 3.0-4.0 08/17/2017 Pt Vpp3936 PT 18.5 seconds 08/10/2017 Pt Jkf0967 INR 1.6 08/10/2017 Pt Dml5643 Low Intensity - 1.5-2.0 08/10/2017 Pt Osb7587 Mod intensity - 2.0-3.0 08/10/2017 Pt Hdq9849 Hi intensity - 3.0-4.0 08/10/2017 Tsh Ord6 [...] 29.3 pg 05/27/2017 Cbc With Differential Ord2 [place]% 8.1 % 05/27/2017 Cbc With Differential Ord2 [...] 1.11 K/ul 05/27/2017 Cbc With Differential Ord2 [place] ABS# 0.6 K/ul 05/27/2017 Cbc With Differential Ord2 Eos ABS# 0.2 K/ul 05/27/2017 Cbc With Differential Ord2 Baso ABS# 0.1 K/ul 05/27/2017 Pt Mfd8334 PT 28.2 seconds 05/27/2017 Pt Swl1027 INR 2.6 05/27/2017 Pt Ixh5929 Low Intensity - 1.5-2.0 05/27/2017 Pt Shs1053 Mod intensity - 2.0-3.0 05/27/2017 Pt Mnq6873 Hi intensity - 3.0-4.0 05/27/2017 Lipid Ord30 CHOL 167 mg/dL 05/27/2017 Lipid Ord30 HDL 49.0 mg/dl 05/27/2017 Lipid Ord30 TRIG 347 mg/dL 05/27/2017 Lipid Ord30 LDL 49 mg/dL 05/27/2017 Lipid Ord30 C/HDL 3.4 Ratio 05/27/2017 Magnesium Ord90 Mag 1.4 mg/dL 05/27/2017 %Hba1C Giz884 % HbA1c 79261-4 5.9 % 05/27/2017 %Hba1C Gzy949 Gluc Ave 123 mg/dL 05/27/2017 Comp Metabolic Fmu789 NA 138 mEq/L 05/27/2017 Comp Metabolic Lay056 K 4.1 mEq/L 05/27/2017 Comp Metabolic Qst852 CL 101 mEq/L 05/27/2017 Comp Metabolic Sta533 CO2 31.0 mEq/L 05/27/2017 Comp Metabolic Mqd603 AN ION GAP 10 05/27/2017 Comp Metabolic Ppt224 GL UCOSE 117 mg/dL 05/27/2017 Comp Metabolic Via996 Cr eat 0.9 mg/dL 05/27/2017 Comp Metabolic Ukt861 eG FR 62 ml/min/1.73m2 05/27 Comp Metabolic Dft210 BUN 25 mg/dL 05/27/2017 Comp Metabolic Xqz305 B/ C Ratio 26.6 Ratio 05/27/2017 Comp Metabolic Qhy893 CA LCIUM 9.5 mg/dL 05/27/2017 Comp Metabolic Ktr877 AL K PHOS 73 U/L 05/27/2017 Comp Metabolic Ntg602 T(SGOT) 18 U/L 05/27/2017 Comp Metabolic Ihu585 AL T(SGPT) 12 U/L 05/27/2017 Comp Metabolic Laz489 BI LI T 0.5 mg/dL 05/27/2017 Comp Metabolic Wza593 AL BUMIN 4.1 g/dL 05/27/2017 Comp Metabolic Auk159 TP RO 7.1 g/dL 05/27/2017 Comp Metabolic Jhj501 GL OB 3.0 g/dL 05/27/2017 Comp Metabolic Xbx411 A/ G Ratio 1.3 Ratio 05/27/2017 Comp Metabolic Vsj997 Os mo 281 mOsmo 05/27/2017 Free T4 Cqc801 FREE T4 0.91 ng/dL 05/27/2017 Pt Cro4762 PT 29.2 seconds 04/16/2017 Pt Hsp7224 INR 2.7 04/16/2017 Pt Fit8215 Low Intensity - 1.5-2.0 04/16/2017 Pt Xyj2346 Mod intensity - 2.0-3.0 04/16/2017 Pt Dxo4174 Hi intensity - 3.0-4.0 04/16/2017 Pt Vct6842 PT 30.7 seconds 03/31/2017 Pt Cvc0967 INR 2.9 03/31/2017 Pt Tio4590 Low Intensity - 1.5-2.0 03/31/2017 Pt Nyn6349 Mod intensity - 2.0-3.0 03/31/2017 Pt Buj8526 Hi intensity - 3.0-4.0 03/31/2017 Pt Srn8186 PT 21.3 seconds 03/26/2017 Pt Twe6093 INR 1.9 03/26/2017 Pt Lbq3977 Low Intensity - 1.5-2.0 03/26/2017 Pt Zvh4353 Mod intensity - 2.0-3.0 03/26/2017 Pt Itt4109 Hi intensity - 3.0-4.0 03/26/2017 Pt Rok4192 PT 19.8 seconds 03/22/2017 Pt Not8010 INR 1.7 03/22/2017 Pt Xff8686 Low Intensity - 1.5-2.0 03/22/2017 Pt Hhu9196 Mod intensity - 2.0-3.0 03/22/2017 Pt Ums3743 Hi intensity - 3.0-4.0 03/22/2017 Pt Oro8299 PT 15.6 seconds 03/19/2017 Pt Cur6984 INR 1.3 03/19/2017 Pt Zpy4981 Low Intensity - 1.5-2.0 03/19/2017 Pt Ywg6237 Mod intensity - 2.0-3.0 03/19/2017 Pt Gyb4436 Hi intensity - 3.0-4.0 03/19/2017 Pt Qog6879 PT 13.7 seconds 03/15/2017 Pt Bdl0923 INR 1.1 03/15/2017 Pt Rfu7880 Low Intensity - 1.5-2.0 03/15/2017 Pt Qhn8404 Mod intensity - 2.0-3.0 03/15/2017 Pt Qbx2774 Hi intensity - 3.0-4.0 03/15/2017 Pt Cnn4311 PT 25.8 seconds 01/28/2017 Pt Tfp9363 INR 2.4 01/28/2017 Pt Wtj1901 Low Intensity - 1.5-2.0 01/28/2017 Pt Jcm5462 Mod intensity - 2.0-3.0 01/28/2017 Pt Tuv0223 Hi intensity - 3.0-4.0 01/28/2017 %Hba1C Qne611 % HbA1c 68415-5 6.4 % 10/23/2016 %Hba1C Oyn978 Gluc Ave 137 mg/dL 10/23/2016 Comp Metabolic Wsj221 NA 138 mEq/L 10/23/2016 Comp Metabolic Gcp629 K 3.4 mEq/L 10/23/2016 Comp Metabolic Yre591 CL 100 mEq/L 10/23/2016 Comp Metabolic Dff597 CO2 30.0 mEq/L 10/23/2016 Comp Metabolic Oql713 AN ION GAP 11 10/23/2016 Comp Metabolic Aed760 GL UCOSE 139 mg/dL 10/23/2016 Comp Metabolic Crr571 Cr eat 0.9 mg/dL 10/23/2016 Comp Metabolic Oaf108 eG FR 62 ml/min/1.73m2 10/23 Comp Metabolic Tia691 BUN 22 mg/dL 10/23/2016 Comp Metabolic Plt529 B/ C Ratio 23.4 Ratio 10/23/2016 Comp Metabolic Qgz163 CA LCIUM 8.7 mg/dL 10/23/2016 Comp Metabolic Ciq852 AL K PHOS 66 U/L 10/23/2016 Comp Metabolic Hwc728 T(SGOT) 20 U/L 10/23/2016 Comp Metabolic Fkz245 AL T(SGPT) 10 U/L 10/23/2016 Comp Metabolic Eyr553 BI LI T 0.5 mg/dL 10/23/2016 Comp Metabolic Cut018 AL BUMIN 3.5 g/dL 10/23/2016 Comp Metabolic Img217 TP RO 6.3 g/dL 10/23/2016 Comp Metabolic Mqy346 GL OB 2.8 g/dL 10/23/2016 Comp Metabolic Dpj512 A/ G Ratio 1.3 Ratio 10/23/2016 Comp Metabolic Pls283 Os mo 281 mOsmo 10/23/2016 Pt Itw0270 PT 26.8 seconds 10/23/2016 Pt Pkv2241 INR 2.7 10/23/2016 Pt Ybn9462 Low Intensity - 1.5-2.0 10/23/2016 Pt Pwq9343 Mod intensity - 2.0-3.0 10/23/2016 Pt Cnt0152 Hi intensity - 3.0-4.0 10/23/2016 Pt Qtj9584 PT 28.3 seconds 09/25/2016 Pt Orw1819 INR 2.8 09/25/2016 Pt Uxl5584 Low Intensity - 1.5-2.0 09/25/2016 Pt Zal6809 Mod intensity - 2.0-3.0 09/25/2016 Pt Elo9094 Hi intensity - 3.0-4.0 09/25/2016 Metabolic Ord15 [...] Metabolic Ord15 CALCIUM 8.8 mg/dL 09/25/2016 Pt Wyq4009 PT 30.6 seconds 09/11/2016 Pt Zcn9532 INR 3.2 09/11/2016 Pt Fjn1247 Low Intensity - 1.5-2.0 09/11/2016 Pt Anx7635 Mod intensity - 2.0-3.0 09/11/2016 Pt Njw5347 Hi intensity - 3.0-4.0 09/11/2016 Comp Metabolic Xax524 NA 138 mEq/L 09/11/2016 Comp Metabolic Axa039 K 4.4 mEq/L 09/11/2016 Comp Metabolic Bej247 CL 103 mEq/L 09/11/2016 Comp Metabolic Coa379 CO2 31.0 mEq/L 09/11/2016 Comp Metabolic Kcf797 AN ION GAP 8 09/11/2016 Comp Metabolic Zky769 GL UCOSE 146 mg/dL 09/11/2016 Comp Metabolic Qyc888 Cr eat 1.0 mg/dL 09/11/2016 Comp Metabolic Dmr137 eG FR 60 ml/min/1.73m2 09/11 Comp Metabolic Ose184 BUN 16 mg/dL 09/11/2016 Comp Metabolic Qij815 B/ C Ratio 16.5 Ratio 09/11/2016 Comp Metabolic Jwa654 CA LCIUM 8.7 mg/dL 09/11/2016 Comp Metabolic Ubx743 AL K PHOS 52 U/L 09/11/2016 Comp Metabolic Noi203 T(SGOT) 19 U/L 09/11/2016 Comp Metabolic His748 AL T(SGPT) 11 U/L 09/11/2016 Comp Metabolic Uas102 BI LI T 0.7 mg/dL 09/11/2016 Comp Metabolic Yjg382 AL BUMIN 3.3 g/dL 09/11/2016 Comp Metabolic Jic542 TP RO 5.8 g/dL 09/11/2016 Comp Metabolic Pmj081 GL OB 2.5 g/dL 09/11/2016 Comp Metabolic Icp749 A/ G Ratio 1.3 Ratio 09/11/2016 Comp Metabolic Eqh734 Os mo 280 mOsmo 09/11/2016 C-Reactive Protein Qnt Crqnt CRP 0.1 mg/dl 08/21/2016 Comp Metabolic Zpa686 NA 139 mEq/L 08/21/2016 Comp Metabolic Say628 K 4.1 mEq/L 08/21/2016 Comp Metabolic Ezn762 CL 102 mEq/L 08/21/2016 Comp Metabolic Xrx899 CO2 30.0 mEq/L 08/21/2016 Comp Metabolic Aye183 AN ION GAP 11 08/21/2016 Comp Metabolic Rrr239 GL UCOSE 148 mg/dL 08/21/2016 Comp Metabolic Efy355 Cr eat 1.0 mg/dL 08/21/2016 Comp Metabolic Vwg561 eG FR 55 ml/min/1.73m2 08/21 Comp Metabolic Pnf716 BUN 21 mg/dL 08/21/2016 Comp Metabolic Hba083 B/ C Ratio 20.2 Ratio 08/21/2016 Comp Metabolic Bdd787 CA LCIUM 9.4 mg/dL 08/21/2016 Comp Metabolic Ohg811 AL K PHOS 63 U/L 08/21/2016 Comp Metabolic Nxo149 T(SGOT) 23 U/L 08/21/2016 Comp Metabolic Yfj648 AL T(SGPT) 16 U/L 08/21/2016 Comp Metabolic Xqz243 BI LI T 0.6 mg/dL 08/21/2016 Comp Metabolic Yqo902 AL BUMIN 3.9 g/dL 08/21/2016 Comp Metabolic Unp783 TP RO 6.8 g/dL 08/21/2016 Comp Metabolic Mxb136 GL OB 2.9 g/dL 08/21/2016 Comp Metabolic Suu882 A/ G Ratio 1.4 Ratio 08/21/2016 Comp Metabolic Tlp616 Os mo 283 mOsmo 08/21/2016 Sed Rate Ord21 ESR 16 mm/hr 08/21/2016 Pt Stp4111 PT 27.2 seconds 08/21/2016 Pt Nhw6939 INR 2.7 08/21/2016 Pt Mbi7739 Low Intensity - 1.5-2.0 08/21/2016 Pt Opm8666 Mod intensity - 2.0-3.0 08/21/2016 Pt Wmk5982 Hi intensity - 3.0-4.0 08/21/2016 Magnesium Ord90 Mag 1.9 mg/dL 08/21/2016 Pt Hvr9643 PT 25.9 seconds 06/17/2016 Pt Lci9967 INR 2.5 06/17/2016 Pt Sck1909 Low Intensity - 1.5-2.0 06/17/2016 Pt Qmh6603 Mod intensity - 2.0-3.0 06/17/2016 Pt Hcq6268 Hi intensity - 3.0-4.0 06/17/2016 Tsh Ord6 hTSH II 2.13 uIU/mL 06/08/2016 Free T4 Vmd614 FREE T4 0.79 ng/dL 06/08/2016 Cbc With [...] 26.8 pg 06/08/2016 Cbc With Differential Ord2 [place]% 12.0 % 06/08/2016 Cbc With Differential Ord2 [...] 1.40 K/ul 06/08/2016 Cbc With Differential Ord2 [place] ABS# 0.7 K/ul 06/08/2016 Cbc With Differential Ord2 Eos ABS# 0.3 K/ul 06/08/2016 Cbc With Differential Ord2 Baso ABS# 0.1 K/ul 06/08/2016 %Hba1C Cti147 % HbA1c 01561-6 6.2 % 06/08/2016 %Hba1C Wrw754 Gluc Ave 131 mg/dL 06/08/2016 Comp Metabolic Nya739 NA 138 mEq/L 06/08/2016 Comp Metabolic Loz903 K 3.9 mEq/L 06/08/2016 Comp Metabolic Xlr837 CL 105 mEq/L 06/08/2016 Comp Metabolic Edz605 CO2 27.0 mEq/L 06/08/2016 Comp Metabolic Uxl172 AN ION GAP 10 06/08/2016 Comp Metabolic Jge970 GL UCOSE 127 mg/dL 06/08/2016 Comp Metabolic Ffu550 Cr eat 1.0 mg/dL 06/08/2016 Comp Metabolic Bwi050 eG FR 59 ml/min/1.73m2 06/08 Comp Metabolic Jnf899 BUN 19 mg/dL 06/08/2016 Comp Metabolic Abh550 B/ C Ratio 19.4 Ratio 06/08/2016 Comp Metabolic Vto649 CA LCIUM 9.2 mg/dL 06/08/2016 Comp Metabolic Fsm375 AL K PHOS 77 U/L 06/08/2016 Comp Metabolic Wng398 T(SGOT) 19 U/L 06/08/2016 Comp Metabolic Ldg098 AL T(SGPT) 13 U/L 06/08/2016 Comp Metabolic Ppq430 BI LI T 0.5 mg/dL 06/08/2016 Comp Metabolic Ped849 AL BUMIN 3.8 g/dL 06/08/2016 Comp Metabolic Klq917 TP RO 6.6 g/dL 06/08/2016 Comp Metabolic Egt114 GL OB 2.8 g/dL 06/08/2016 Comp Metabolic Sft825 A/ G Ratio 1.4 Ratio 06/08/2016 Comp Metabolic Xok304 Os mo 280 mOsmo 06/08/2016 Pt Unh1545 PT 36.1 seconds 06/08/2016 Pt Omt9260 INR 3.9 06/08/2016 Pt Sbj0607 Low Intensity - 1.5-2.0 06/08/2016 Pt Iny0167 Mod intensity - 2.0-3.0 06/08/2016 Pt Hdg7989 Hi intensity - 3.0-4.0 06/08/2016 Lipid Ord30 CHOL 149 mg/dL 06/08/2016 Lipid Ord30 HDL 46.0 mg/dl 06/08/2016 Lipid Ord30 TRIG 279 mg/dL 06/08/2016 Lipid Ord30 LDL 47 mg/dL 06/08/2016 Lipid Ord30 C/HDL 3.2 Ratio 06/08/2016 Pt Ubz4460 PT 30.9 seconds 02/12/2016 Pt Cta1016 INR 3.2 02/12/2016 Pt Gsv2322 Low Intensity - 1.5-2.0 02/12/2016 Pt Tug2187 Mod intensity - 2.0-3.0 02/12/2016 Pt Gqc3390 Hi intensity - 3.0-4.0 02/12/2016 Free T4 Hor391 FREE T4 1.24 ng/dL 09/27/2015 %Hba1C Iza424 % HbA1c 73235-2 6.4 % 09/27/2015 %Hba1C Ijc734 Gluc Ave 137 mg/dL 09/27/2015 Tsh Ord6 hTSH II 0.37 uIU/mL 09/27/2015 Pt Vtj7513 PT 26.2 seconds 09/27/2015 Pt Eji8047 INR 2.5 09/27/2015 Pt Pjl3868 Low Intensity - 1.5-2.0 09/27/2015 Pt Yuc5745 Mod intensity - 2.0-3.0 09/27/2015 Pt Bbq3232 Hi intensity - 3.0-4.0 09/27/2015 Pt Ohd7181 PT 27.6 seconds 2015 Pt Ycb8788 INR 2.7 2015 Pt Pme0010 Low Intensity - 1.5-2.0 2015 Pt Gxe5412 Mod intensity - 2.0-3.0 2015 Pt Slc2708 Hi intensity - 3.0-4.0 2015 %Hba1C Awr858 % HbA1c 98471-2 6.1 % 06/11/2015 %Hba1C Xny110 Gluc Ave 128 mg/dL 06/11/2015 Cbc With [...] Ord2 RDW 15.8 % 06/10/2015 Comp Metabolic Gig016 NA 139 mEq/L 06/10/2015 Comp Metabolic Izo656 K 4.1 mEq/L 06/10/2015 Comp Metabolic Qiu982 CL 105 mEq/L 06/10/2015 Comp Metabolic Etf837 CO2 27.0 mEq/L 06/10/2015 Comp Metabolic Dmi306 AN ION GAP 11 06/10/2015 Comp Metabolic Ipp796 GL UCOSE 127 mg/dL 06/10/2015 Comp Metabolic Hyc926 Cr eat 1.0 mg/dL 06/10/2015 Comp Metabolic Zbd033 eG FR 59 ml/min/1.73m2 06/10 Comp Metabolic Mpr522 BUN 21 mg/dL 06/10/2015 Comp Metabolic Gou576 B/ C Ratio 21.2 Ratio 06/10/2015 Comp Metabolic Wbn737 CA LCIUM 9.2 mg/dL 06/10/2015 Comp Metabolic Kex302 AL K PHOS 87 U/L 06/10/2015 Comp Metabolic Huj482 T(SGOT) 20 U/L 06/10/2015 Comp Metabolic Pfs034 AL T(SGPT) 17 U/L 06/10/2015 Comp Metabolic Wmw229 BI LI T 0.4 mg/dL 06/10/2015 Comp Metabolic Zgz943 AL BUMIN 4.1 g/dL 06/10/2015 Comp Metabolic Wel749 TP RO 7.2 g/dL 06/10/2015 Comp Metabolic Ziv234 GL OB 3.1 g/dL 06/10/2015 Comp Metabolic Abx827 A/ G Ratio 1.3 Ratio 06/10/2015 Comp Metabolic Eix268 Os mo 282 mOsmo 06/10/2015 Tsh Ord6 hTSH II 0.86 uIU/mL 06/10/2015 Lipid Ord30 CHOL 161 mg/dL 06/10/2015 Lipid Ord30 HDL 49.0 mg/dl 06/10/2015 Lipid Ord30 TRIG 208 mg/dL 06/10/2015 Lipid Ord30 LDL 70 mg/dL 06/10/2015 Lipid Ord30 C/HDL 3.3 Ratio 06/10/2015 Pt Edc9169 PT 25.0 seconds 04/09/2015 Pt Wfe1908 INR 2.4 04/09/2015 Pt Eam6552 Low Intensity - 1.5-2.0 04/09/2015 Pt Mzl6254 Mod intensity - 2.0-3.0 04/09/2015 Pt Aan1689 Hi intensity - 3.0-4.0 04/09/2015 Free T4 Cat511 FREE T4 1.05 ng/dL 01/22/2015 Pt Sgc7273 PT 27.2 seconds 01/22/2015 Pt Fnd2355 INR 2.6 01/22/2015 Pt Tqu6148 Low Intensity - 1.5-2.0 01/22/2015 Pt Vab4153 Mod intensity - 2.0-3.0 01/22/2015 Pt Ckz3132 Hi intensity - 3.0-4.0 01/22/2015 Cbc With [...] Differential Ord2 RDW 15.2 % 01/22/2015 B12 Ymu237 B12 402.00 pg/ml 01/22/2015 Tsh Ord6 hTSH II 0.65 uIU/mL 01/22/2015 Lipid Ord30 CHOL 166 mg/dL 01/22/2015 Lipid Ord30 HDL 48.0 mg/dl 01/22/2015 Lipid Ord30 TRIG 264 mg/dL 01/22/2015 Lipid Ord30 LDL 65 mg/dL 01/22/2015 Lipid Ord30 C/HDL 3.5 Ratio 01/22/2015 Comp Metabolic Ick509 NA 138 mEq/L 01/22/2015 Comp Metabolic Xul194 K 4.1 mEq/L 01/22/2015 Comp Metabolic Hbg970 CL 104 mEq/L 01/22/2015 Comp Metabolic Ytk498 CO2 29.0 mEq/L 01/22/2015 Comp Metabolic Cbe738 AN ION GAP 9 01/22/2015 Comp Metabolic Dyt570 GL UCOSE 106 mg/dL 01/22/2015 Comp Metabolic Hcv424 Cr eat 0.9 mg/dL 01/22/2015 Comp Metabolic Ixt378 eG FR 63 ml/min/1.73m2 01/22 Comp Metabolic Ziq922 BUN 21 mg/dL 01/22/2015 Comp Metabolic Vrm057 B/ C Ratio 22.3 Ratio 01/22/2015 Comp Metabolic Mll181 CA LCIUM 9.4 mg/dL 01/22/2015 Comp Metabolic Mmf769 AL K PHOS 83 U/L 01/22/2015 Comp Metabolic Pdo543 T(SGOT) 23 U/L 01/22/2015 Comp Metabolic Veb115 AL T(SGPT) 18 U/L 01/22/2015 Comp Metabolic Vbl206 BI LI T 0.8 mg/dL 01/22/2015 Comp Metabolic Trn927 AL BUMIN 4.2 g/dL 01/22/2015 Comp Metabolic Anr454 TP RO 7.3 g/dL 01/22/2015 Comp Metabolic Trs295 GL OB 3.1 g/dL 01/22/2015 Comp Metabolic Nrb057 A/ G Ratio 1.4 Ratio 01/22/2015 Comp Metabolic Fve835 Os mo 279 mOsmo 01/22/2015 Review of Systems System Result Effective Dates Constitutional No recent illness 04/14/2018 Constitutional No [...] mildl y TTP Procedures Procedure Codes Date URINALYSIS NONAUTO W /O SCOPE CPT-4: 29173 03/05/2017 Vital Signs Date Vital 04/14/2018 Blood Pressure 1: 116/78 Code: 8480-6 BMI: 41.6 Code: 41356-7 Heart Rate 1: 72 bpm Height: 5'1" SpO2: 98% Weight: 220 lbs 01/18/2018 Blood Pressure 1: 132/74 Code: 8480-6 BMI: 43.5 Code: 77236-9 Heart Rate 1: 70 bpm Height: 5'1" SpO2: 97% Weight: 230 lbs 01/04/2018 Blood Pressure 1: 134/76 Code: 8480-6 BMI: 42.7 Code: 78009-3 Heart Rate 1: 83 bpm Height: 5'1" SpO2: 98% Weight: 226 lbs 09/23/2017 Blood Pressure 1: 124/76 Code: 8480-6 BMI: 42.3 Code: 46704-3 Heart Rate 1: 94 bpm Height: 5'1" SpO2: 96% Weight: 224 lbs 05/27/2017 Blood Pressure 1: 146/78 Code: 8480-6 BMI: 41.4 Code: 43533-9 Heart Rate 1: 85 bpm Height: 5'1" SpO2: 98% Weight: 219 lbs 02/24/2017 Blood Pressure 1: 138/66 Code: 8480-6 BMI: 41.4 Code: 83818-3 Heart Rate 1: 78 bpm Height: 5'1" SpO2: 97% Weight: 219 lbs 11/02/2016 Blood Pressure 1: 144/72 Code: 8480-6 BMI: 46.1 Code: 85631-1 Heart Rate 1: 78 bpm Height: 5'1" SpO2: 98% Weight: 244 lbs 09/30/2016 Blood Pressure 1: 130/76 Code: 8480-6 BMI: 45.0 Code: 29363-4 Heart Rate 1: 86 bpm Height: 5'1" SpO2: 98% Weight: 238 lbs 09/10/2016 Blood Pressure 1: 136/68 Code: 8480-6 BMI: 46.3 Code: 15145-4 Heart Rate 1: 83 bpm Height: 5'1" SpO2: 98% Weight: 245 lbs 08/20/2016 Blood Pressure 1: 142/78 Code: 8480-6 BMI: 45.3 Code: 14830-4 Heart Rate 1: 84 bpm Height: 5'1" SpO2: 99% Weight: 240 lbs 06/08/2016 Blood Pressure 1: 134/76 Code: 8480-6 BMI: 44.2 Code: 47409-0 Heart Rate 1: 86 bpm Height: 5'1" SpO2: 96% Weight: 234 lbs 04/02/2016 Blood Pressure 1: 142/70 Code: 8480-6 BMI: 44.6 Code: 36991-1 Heart Rate 1: 78 bpm Height: 5'1" SpO2: 97% Weight: 236 lbs 01/14/2016 Blood Pressure 1: 146/72 Code: 8480-6 BMI: 44.2 Code: 58032-4 Heart Rate 1: 86 bpm Height: 5'1" SpO2: 96% Weight: 234 lbs 10/02/2015 Blood Pressure 1: 158/76 Code: 8480-6 BMI: 44.2 Code: 66802-4 Heart Rate 1: 67 bpm Height: 5'1" SpO2: 97% Weight: 234 lbs 07/15/2015 Blood Pressure 1: 200/90 Code: 8480-6 Blood Pressure 1: 148/78 Code: 8480-6 BMI: 44.0 Code: 80286-1 Heart Rate 1: 89 bpm Height: 5'1" SpO2: 97% Weight: 233 lbs 06/10/2015 Blood Pressure 1: 140/82 Code: 8480-6 BMI: 44.0 Code: 96188-1 Heart Rate 1: 78 bpm Height: 5'1" SpO2: 93% Weight: 233 lbs 01/22/2015 Blood Pressure 1: 136/64 Code: 8480-6 Heart Rate 1: 82 bpm Height: SpO2: 98% Weight: 225 lbs Functional Status No Functional Status data History of Present Illness Symptom Name Status Resu lt Effective Date Notes hypertension Quality kenji bernal hypertension 04/14/2018 None [...] wearing crocs and there was a new [place] on the floor: her foot didn't move [...] Encounters Encounter Performer Loca tion Codes Date ([id number]) [id number] EST. 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 P ATIENT, LEVEL III Diagnosis: Localized edema[ICD10: R60.0] Diagnosis: Gastro-esophageal reflux disease without esophagitis[ICD10: K21.9] Edna Almanza MD, [facility] CPT-4: 80371 01/18/2018 ([id number]) 40587 EST. P ATIENT, LEVEL IV Diagnosis: Gastro-esophageal reflux disease without esophagitis[ICD10: K21.9] Diagnosis: Localized edema[ICD10: R60.0] Diagnosis: Essential (primary) hypertension[ICD10: I10] Diagnosis: Hypothyroidism, unspecified[ICD10: E03.9] Diagnosis: Impaired fasting glucose[ICD10: R73.01] Edna Almanza MD, [facility] CPT-4: 90932 01/04/2018 ([id number]) 01349 EST. 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 CPT-4: 99701 09/23/2017 ([id number]) 55932 EST. 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 PATIENT, LEVEL III Diagnosis: Pain in right hip[ICD10: M25.551] Nata Almanza MD, [facility] CPT-4: 03072 02/24/2017 ([id number]) 76129 EST. P ATIENT, LEVEL IV Diagnosis: Essential (primary) hypertension[ICD10: I10] Diagnosis: Localized edema[ICD10: R60.0] Diagnosis: Pain in right hip[ICD10: M25.551] Sarai Almanza MD, [facility] CPT-4: 06771 11/02/2016 ([id number]) 42637 EST. P ATIENT, LEVEL IV Diagnosis: Essential (primary) hypertension[ICD10: I10] Diagnosis: Localized edema[ICD10: R60.0] Sarai Almanza MD, [facility] CPT-4: 20203 09/30/2016 07105 EST. PATIENT, LEVEL IV Diagnosis: Localized edema[ICD10: R60.0] Diagnosis: Pain in joints of left hand[ICD10: M25.542] Diagnosis: Pain in joints of right hand[ICD10: M25.541] Nata Almanza MD, [facility] CPT-4: 68203 09/10/2016 40613 EST. PATIENT, LEVEL IV Diagnosis: Localized edema[ICD10: R60.0] Diagnosis: Pain in joints of left hand[ICD10: M25.542] Diagnosis: Pain in joints of right hand[ICD10: M25.541] Diagnosis: Other fatigue[ICD10: R53.83] Nata Almanza MD, [facility] CPT-4: 57472 08/20/2016 11242 EST. 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 PATIENT, LEVEL IV Diagnosis: Other allergic rhinitis[ICD10: J30.89] Diagnosis: Acute laryngopharyngitis[ICD10: J06.0] Nata Almanza MD, [facility] CPT-4: 67276 04/02/2016 79557 EST. PATIENT, LEVEL IV Diagnosis: Left upper quadrant pain[ICD10: R10.12] Nata Almanza MD, [facility] CPT-4: 96676 01/14/2016 24025 EST. PATIENT, LEVEL IV Diagnosis: Pain in left shoulder[ICD10: M25.512] Diagnosis: Body mass index (BMI) 40.0-44.9, adult[ICD10: Z68.41] Nata Almanza MD, [facility] CPT-4: 14573 10/02/2015 26627 EST. PATIENT, LEVEL IV Diagnosis: Pain in left leg[ICD10: M79.605] Diagnosis: Other fpc (current) drug therapy[ICD10: Z79.899] Nata Almanza MD, [facility] CPT-4: 17260 07/15/2015 ([id number]) 70602 EST. 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: Other fpc (current) drug therapy[ICD10: Z79.899] Edna Almanza MD, [facility] CPT-4: 67234 06/10/2015 ([id number]) OFFICE VISI T, NEW - LEVEL 4 Diagnosis: ESSENTIAL HYPERTENSION[ICD9: 401.9] Diagnosis: HYPOTHYROIDISM[ICD9: 244.9] Diagnosis: ENCNTR LONG-RX USE NEC[ICD9: V58.69] Diagnosis: HYPERLIPIDEMIA[ICD9: 272.4] Diagnosis: Vitamin B12 deficiency[ICD9: 266.2] Diagnosis: Status post gastric surgery[ICD9: V45.89] Diagnosis: Snoring[ICD9: 786.09] Sarai Almanza MD, [facility] CPT-4: 93582 01/22/2015 Plan of Care Planned Activity Notes C odes Status Date Visit Plan: Hypertension - well con simraned [...] A1C 04/14/2018 Appointment: Edna Douglas WPtel: [phone] (15 min) Moderate 04/14/2018 Patient Education: [...] to further attempt to reduce peripheral edema. AXVM-yhvhcmhc-entnjwsc prilosec BID and carafate QID -discussed low spice, low acidic diet 01/18/2018 Appointment: Edna Douglas WPtel: [facility] [address] (15 min) Moderate 01/18/2018 Patient Education: Patient [...] on previous levels of control. 01/04/2018 Appointment: Edan Duoglas WPtel: [address] [place], [place] [phone] (30 min) Complex 01/04/2018 Patient Education: Patient Medication Summary Completed 01/04/2018 Care Plan: SCREENINGMAMMOGRAPHYDIGITAL LOINC : 11660-7 Pending 01/04/2018 Visit Plan: Abdominal hernia - not able to be taken to surgery by local providers and pt has been seen at [facility] and that surgeon felt like Kat [...] home. 09/23/2017 App[facility]ment[phone] ([facility] Moderate 09/23/2017 Patient Education: Patient Medication Summary Completed 09/23/2017 Visit Plan: Hypertension - well con simraned [...] medications. 05/27/2017 [phone] (30 min) Complex 05/27/2017 Patient Education: [...] [place]. 02/24/2017 Appointment: Nata Hsu WPtel: [phone] [phone] (30 min) Complex 02/24/2017 Patient Education: Patient [...] Chaney. 11/02/2016 Appointment: Sarai Almanza WPtel: [phone] [phone] (15 min) Moderate 11/02/2016 Patient Education: Patient [...] edema. 09/30/2016 App[facility]ment: [phone] ([facility] min) Moderate 09/30/2016 Patient Education: [...] edema. 09/10/2016 Appointment: Nata Hsu WPtel: [facility] [address] (30 min) Complex 09/10/2016 Patient Education: [...] Hsu WPtel: [facility] [address] (30 min) Complex 08/20/2016 Patient Education: Patient Medication Summary Completed 08/20/2016 Referral: Otf Lee [address] Referral Initiated 07/02/2016 Visit Plan: Chronic [...] 06/08/2016 Care Plan: Referral Order SNOMED-CT : [id number] Pending 06/08/2016 Visit Plan: URI - Pt [...] spray. 04/02/2016 Appointment: Nata Hsu WPtel: [phone] [phone] (30 min) Complex 04/02/2016 Patient Education: [...] pain 01/14/2016 Appointment: Edna Douglas WPtel: [phone] [phone] (30 min) Complex 01/14/2016 Patient Education: Patient Medication Summary Completed 01/14/2016 Patient Education: Obesity Completed 01/14/2016 Care Plan: BMI Above normal followup DAVID F-MGMT EDUC & TRAIN 1 PT Pending 10/24/2015 Care Plan: X-RAY EXAM OF SHOULDER LOINC : 57457-4 Pending 10/24/2015 Visit Plan: Left shoulder pain [...] check. 10/02/2015 Appointment: Edna Douglas WPtel: [phone] [phone] (15 min) Moderate 10/02/2015 Patient Education: [...] ses Completed 06/10/2015 Appointment: Sarai Almanza WPtel: [address] [place], [place] [phone] (15 min) Moderate 04/22/2015 Visit Plan: Hypertension [...] have surgical fixation - planning occurring at [facility]. Snoring - Sleep apnea symptoms with [...] to medications. 01/22/2015 Appointment: Sarai Almanza WPtel: [address] [place], [place] [phone] [place] ([place]) New Patient 01/22/2015 Patient Education: Patient Medication Summary Completed 01/22/2015 Patient Education: Hypertension Completed 01/22/2015 Referral: Otf Lee [facility] Referral Initiated Instructions Comment . Chronic [...] - Will refer to Dr. Lee . Abdominal hernia - not able to be taken to surgery by local providers and pt has been seen at [facility] and that surgeon felt like Kat [...] to further attempt to reduce peripheral edema. VWEV-uvttnqpk-llsgsfli prilosec BID and carafate QID -discussed low [...] have surgical fixation - planning occurring at [facility]. Snoring - Sleep apnea symptoms with [...]
--- OUTSIDE RECORDS SUMMARY | 2020-01-16 23:22 | XMS REPORT | CCD ---
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 Operator Name Role Phone PP Unavailable CCM Unavailable Summary Purpose Interface Exchange Insurance Providers Payer name Policy type / Coverage type Covered alliance party ID Effective Begin Date Effective End Date WPS Medicare Part B Medicare Part B [id number] 2017 Unknown Bank[employer] [place] Medicare Part B [id number] 2017 Unknown Family history Father Diagnosis Age At Onset Hyperlipidemia Unknown Heart Attack Unknown Mother Diagnosis Age At Onset Arthritis Unknown Social History Social History Element Codes Description Effective Dates Marital status Unknown M arried Nathan 09/30/2016 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 Number of children Unknown 3 01/22/[address]: 728938586 Never smoker 01/22/[address]: 296580926 Never drinks alcohol 01/22/2015 Allergies, Adverse Reactions, Alerts Substance Reaction Codes Entered Date Inactivated Date Status * NO KNOWN DRUG ORIN RGIES Unknown 01/22/2015 No Inactive Date Active Past Medical History Illness Codes Condition Status Onset Date Resolved Date Hypothyroidism, unsp ecified ICD-9: 244.9 ICD-10: E03.9 Active 05/27/2017 Unknown half-way (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 ICD-9: V58.61 ICD-10: [...] 780.79 ICD-10: R53.83 Active 08/20/2016 Unknown Other terminal gauger (cur rent) drug therapy ICD-9: V58.69 ICD-10: [...] ecified ICD-9: 244.9 ICD-10: E03.9 05/27/2017 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 ICD-9: V58.61 [...] 780.79 ICD-10: R53.83 08/20/2016 Active Other terminal gauger (cur rent) drug therapy ICD-9: V58.69 ICD-10: [...] Fill Instructions Plavix 75 mg tablet RxNorm: 060438 TAKE ONE TABLET BY MOUTH DAILY 09/02/2018 02/28/2019 Ac tive Keflex 500 mg capsule RxNorm: 376988 1 Capsule(s) PO TID 09/02/2018 09/08/2018 Active Kenalog 40 mg/mL maxine pension for injection RxNorm: 2544238 Milliliter(s) Inj 09/02/2018 09/02/2018 In active prednisone 10 mg tablet RxNorm: 154347 Tablet(s) PO 09/02/2018 No Stop Date Active 60,60,50,50,40,40,30,30,20,20,10,10 Lipitor 40 mg tablet RxNorm: 196943 TAKE ONE TABLET BY MOUTH DAILY 07/29/2018 07/23/2019 Ac tive Coumadin 1 mg tablet RxNorm: 850285 TAKE ONE TABLET BY MOUTH DAILY 07/29/2018 10/26/2018 Ac tive Carafate 1 gram tablet RxNorm: 433443 TAKE ONE TABLET BY MOUTH BEFORE MEALS AN D AT BEDTIME 07/28/2018 09/17/2018 Active Coumadin 4 mg tablet RxNorm: 617005 2 Tablet(s) daily 07/11/2018 02/05/2019 Active Generi c For:COUMADIN 4MG 07/22/2017 8:58:26 AM Coumadin 5 mg tablet RxNorm: 872428 Tablet(s) TAKE 1 TABLET BY MOUTH DIRE CTED 07/08/2018 01/03/2019 Ac tive Generic For:COUMADIN 5MG TAB 03/21/2018 9:13:00 AM Coumadin 4 mg tablet RxNorm: 442319 Tablet(s) TAKE 1 TABLET BY MOUTH THREE T IMES PER WEEK (WEDNESDAY, WEDNESDAY AND WEDNESDAY) 07/08/2018 07/10/2018 Inactive Gene andre For:COUMADIN 4MG 07/22/2017 8:58:26 AM Coumadin 1 mg tablet RxNorm: 912574 1 Tablet(s) PO daily 07/08/2018 08/06/2018 Inactive venlafaxine ER 75 mg capsule,extended release 24 hr RxNorm: 028991 Capsule(s) TAKE 1 CAPSULE BY MOUTH ONCE DAILY 06/23/2018 06/17/2019 Active Generic For:*EFFEXOR XR 75MG 06/19/2017 12:23:45 PM sodium bicarbonate 6 50 mg tablet RxNorm: 332424 Tablet(s) TAKE 2 TABL ETS BY MOUTH TWICE DAILY 06/23/2018 12/19/2018 Active 12/20/2017 9:10:59 AM Coumadin 1 mg tablet RxNorm: 471205 1 Tablet(s) PO daily 06/17/2018 07/07/2018 Inactive Coumadin 1 mg tablet RxNorm: 009427 1 Tablet(s) PO daily 06/17/2018 06/16/2018 Inactive clonazepam 0.5 mg ta blet RxNorm: 185249 1 Tablet(s) PO BID 06/08/2018 11/04/2018 Active Synthroid 137 mcg ta blet RxNorm: 104426 TAKE 1 TABLET BY MOUT H ONCE DAILY 05/18/2018 11/13/2018 Ac tive Generic For:SYNTHROID 137MCG TAB 2017 8:57:54 AM spironolactone 25 mg tablet RxNorm: 074763 TAKE 1 TABLET BY MOUT H EVERY DAY 05/18/2018 05/12/2019 Ac tive Generic For:*ALDACTONE 25MG 05/18/2018 8:57:50 AM Carafate 1 gram tablet RxNorm: 377582 TAKE ONE TABLET BY MOUTH BEFORE MEALS AN D AT BEDTIME 05/18/2018 07/12/2018 Inactive Generic For:CARAFATE 1GM 1 07/18/2017 8:38:28 AM allopurinol 300 mg t ablet RxNorm: 089454 TAKE 1 TABLET BY MOUT H ONCE DAILY. 04/18/2018 10/14/2018 Ac tive Generic For:ZYLOPRIM 300 MG TABLET 03/22 9:13:47 AM Lasix 20 mg tablet RxNorm: 932794 TAKE ONE TABLET BY MOUTH DAILY 04/18/2018 08/15/2018 In active Generic For:LASIX 20MG 04/18/2018 9:13: 50 AM Carafate 1 gram tablet RxNorm: 006815 TAKE ONE TABLET BY MOUTH BEFORE MEALS AN D AT BEDTIME 04/18/2018 05/17/2018 Inactive Generic For:CARAFATE 1GM 1 9:32:51 AM Coumadin 5 mg tablet RxNorm: 900995 TAKE 1 TABLET BY MOUTH DIRECTED 03/21/2018 07/07/2018 In active Generic For:COUMADIN 5MG TAB 03/21/2018 9:13:00 AM Carafate 1 gram tablet RxNorm: 538466 TAKE ONE TABLET BY MOUTH BEFORE MEALS AN D AT BEDTIME 03/21/2018 04/17/2018 Inactive Generic For:CARAFATE 1GM 1 9:14:24 AM Carafate 1 gram tablet RxNorm: 231695 1 Tablet(s) PO AC & HS 02/17/2018 03/20/2018 Inactive atenolol 100 mg tablet RxNorm: 700509 1 Tablet(s) PO daily 02/04/2018 09/01/2018 Inactive atenolol 50 mg tablet RxNorm: 511606 1 Tablet(s) PO daily 02/03/2018 02/03/2018 Inactive omeprazole 20 mg cap sean,delayed release RxNorm: 003434 1 Capsule(s) BID 01/21/2018 01/15/2019 Ac tive Generic For:PRILOSEC 20MG 07/22/2017 8:5 8:20 AM Carafate 1 gram tablet RxNorm: 808226 1 Tablet(s) PO AC & HS 01/21/2018 02/16/2018 Inactive Carafate 1 gram tablet RxNorm: 772426 1 Tablet(s) PO AC & HS 01/18/2018 01/20/2018 Inactive Carafate 1 gram tablet RxNorm: 696862 1 Tablet(s) PO AC & HS 01/18/2018 02/27/2018 Inactive Carafate 1 gram tablet RxNorm: 480472 1 Tablet(s) PO AC & HS TAKE ONE TABLET B Y MOUTH TWICE DAILY 01/18/2018 05/17/2018 Inactive Generic For:CARAFATE 1GM 0 12/20/2017 9:10:56 AM omeprazole 20 mg cap sean,delayed release RxNorm: 348089 Capsule(s) TAKE 1 CAP SEAN BY MOUTH EVERY DAY 01/17/2018 01/20/2018 Inactive Generic For:PRILOSEC 20MG 0 07/22/2017 8:58:20 AM omeprazole 20 mg cap sean,delayed release RxNorm: 315304 Capsule(s) TAKE 1 CAP SEAN BY MOUTH EVERY DAY 01/14/2018 01/16/2018 Inactive Generic For:PRILOSEC 20MG 07/22/2017 8:58:20 AM clonazepam 0.5 mg ta blet RxNorm: 806759 1 Tablet(s) PO BID 01/07/2018 06/05/2018 Inactive Plavix 75 mg tablet RxNorm: 372386 1 Tablet(s) PO daily 01/07/2018 07/05/2018 Inactive Carafate 1 gram tablet RxNorm: 310242 1 Tablet(s) PO AC & HS 01/04/2018 01/17/2018 Inactive Lasix 20 mg tablet RxNorm: 655149 TAKE ONE TABLET BY MOUTH DAILY 12/20/2017 04/17/2018 In active Generic For:LASIX 20MG 12/20/2017 9:11: 03 AM sodium bicarbonate 6 50 mg tablet RxNorm: 095454 TAKE 2 TABLETS BY JAVON TH TWICE DAILY 12/20/2017 06/17/2018 In active 12/20/2017 9:10:59 AM Carafate 1 gram tablet RxNorm: 926667 TAKE ONE TABLET BY MOUTH TWICE DAILY 12/20/2017 01/17/2018 In active Generic For:CARAFATE 1GM 12/20/2017 9:1 0:56 AM Synthroid 137 mcg ta blet RxNorm: 755609 TAKE 1 TABLET BY MOUT H ONCE DAILY 11/19/2017 05/17/2018 In active Generic For:SYNTHROID 137MCG TAB 2017 8:58:04 AM Detrol LA 4 mg capsu le,extended release RxNorm: 781076 TAKE 1 CAPSULE BY JAVON TH ONCE DAILY 10/20/2017 04/13/2018 Inactive Generic For:DETROL LA 4MG C AP 10/20/2017 9:01:56 AM allopurinol 300 mg t ablet RxNorm: 469209 TAKE 1 TABLET BY MOUT H ONCE DAILY. 10/20/2017 04/17/2018 In active Generic For:ZYLOPRIM 300 MG TABLET 07/2017 9:01:59 AM Coumadin 5 mg tablet RxNorm: 313310 1 Tablet(s) PO UD 10/01/2017 03/20/2018 Inactive cyclobenzaprine 5 mg tablet RxNorm: 478602 1 Tablet(s) PO TID as needed myscle spasm 09/23/2017 10/12/2017 Inactive Lipitor 40 mg tablet RxNorm: 633721 TAKE 1 TABLET BY MOUTH ONCE DAILY 09/20/2017 07/28/2018 In active Generic For:LIPITOR 40MG 09/20/2017 8:5 6:04 AM atenolol 100 mg tablet RxNorm: 658612 1 Tablet(s) PO daily 08/30/2017 02/03/2018 Inactive atenolol 50 mg tablet RxNorm: 939920 1 Tablet(s) PO daily 08/30/2017 08/30/2017 Inactive Lovenox 30 mg/0.3 mL subcutaneous syringe RxNorm: 758870 0.3 Milliliter(s) SQ Q12H 08/24/2017 09/06/2017 In active Lasix 20 mg tablet RxNorm: 652705 TAKE ONE TABLET BY MOUTH DAILY 08/23/2017 12/19/2017 In active Generic For:LASIX 20MG 08/21/2017 9:04: 27 AM Synthroid 137 mcg ta blet RxNorm: 181821 TAKE 1 TABLET BY MOUT H ONCE DAILY 08/23/2017 11/18/2017 In active Generic For:SYNTHROID 137MCG TAB 2017 9:04:30 AM Lovenox 30 mg/0.3 mL subcutaneous syringe RxNorm: 275793 0.3 Milliliter(s) SQ Q12H 08/10/2017 08/23/2017 In active clonazepam 0.5 mg ta blet RxNorm: 364171 1 Tablet(s) PO BID 08/04/2017 12/30/2017 Inactive Coumadin 4 mg tablet RxNorm: 122967 TAKE 1 TABLET BY MOUTH THREE TIMES PER [place] (WEDNESDAY, WEDNESDAY AND WEDNESDAY) 07/22/2017 02/16/2018 Inactive Generic For:COUMADIN 4MG 07/22/2017 8:58:26 AM omeprazole 20 mg cap sean,delayed release RxNorm: 886641 TAKE 1 CAPSULE BY JAVON TH EVERY DAY 07/22/2017 01/13/2018 Inactive Generic For:PRILOSEC 20MG 07/22/2017 8: 58:20 AM Coumadin 4 mg tablet RxNorm: 769238 TAKE 1 TABLET BY MOUTH THREE TIMES PER [place] (WEDNESDAY, WEDNESDAY AND WEDNESDAY) 07/22/2017 02/16/2018 Inactive Generic For:COUMADIN 4MG 07/22/2017 8:58:26 AM sodium bicarbonate 6 50 mg tablet RxNorm: 774299 TAKE 2 TABLETS BY JAVON TH TWICE DAILY 06/22/2017 12/18/2017 In active 06/19/2017 12:23:30 PM venlafaxine ER 75 mg capsule,extended release 24 hr RxNorm: 029072 TAKE 1 CAPSULE BY MOUTH ONCE DAILY 06/22/2017 06/16/2018 Inactive Generic For:*EFFEXOR XR 75M G 06/19/2017 12:23:45 PM Coumadin 5 mg tablet RxNorm: 536351 1 Tablet(s) PO UD 06/01/2017 09/30/2017 Inactive Keflex 500 mg capsule RxNorm: 756743 1 Capsule(s) PO TID 05/27/2017 06/02/2017 Inactive Synthroid 137 mcg ta blet RxNorm: 934604 TAKE 1 TABLET BY MOUT H ONCE DAILY 05/24/2017 08/21/2017 In active Generic For:SYNTHROID 137MCG TAB 2016 8:55:59 AM Carafate 1 gram tablet RxNorm: 493695 TAKE ONE TABLET BY MOUTH TWICE DAILY 05/24/2017 12/19/2017 In active Generic For:CARAFATE 1GM 05/24/2017 8:5 5:54 AM spironolactone 25 mg tablet RxNorm: 389162 1 Tablet(s) PO daily 05/24/2017 05/17/2018 Inactive Detrol LA 4 mg capsu le,extended release RxNorm: 425376 1 Capsule(s) PO daily TAKE 1 CAPSULE BY MOUTH ONCE DAILY 05/10/2017 10/19/2017 Inactive Generic For:DETROL LA 4MG CAP 02/19/2017 2:36:00 PM Lasix 20 mg tablet RxNorm: 683468 TAKE ONE TABLET BY MOUTH DAILY 04/23/2017 08/20/2017 In active Generic For:LASIX 20MG 04/23/2017 9:04: 01 AM Coumadin 4 mg tablet RxNorm: 942821 TAKE 1 TABLET BY MOUTH THREE TIMES PER [place] (WEDNESDAY, WEDNESDAY AND WEDNESDAY) 04/23/2017 07/21/2017 Inactive Generic For:COUMADIN 4MG 04/23/2017 9:04:05 AM allopurinol 300 mg t ablet RxNorm: 350791 TAKE 1 TABLET BY MOUT H ONCE DAILY. 04/23/2017 10/19/2017 In active Generic For:ZYLOPRIM 300 MG TABLET 08/2016 9:03:57 AM potassium chloride 2 0 mEq/15 mL oral liquid RxNorm: 111886 Milliliter(s) 30 Milliliter(s) (40mEq) PO daily 03/24/2017 07/21/2017 Inactive Lovenox 30 mg/0.3 mL subcutaneous syringe RxNorm: 788859 0.3 Milliliter(s) SQ Q12H 03/22/2017 03/26/2017 In active Lovenox 30 mg/0.3 mL subcutaneous syringe RxNorm: 628813 0.3 Milliliter(s) SQ Q12H 03/19/2017 03/20/2017 In active Lovenox 30 mg/0.3 mL subcutaneous syringe RxNorm: 721351 0.3 Milliliter(s) SQ Q12H 03/16/2017 03/18/2017 In active clonazepam 0.5 mg ta blet RxNorm: 752157 1 Tablet(s) PO BID 03/02/2017 07/28/2017 Inactive Lovenox 30 mg/0.3 mL subcutaneous syringe RxNorm: 939643 1 injection SQ BID do NOT take the night time dose the day before surgery, or the morning dose the day of surgery 03/01/2017 03/07/2017 Inactive Lovenox 30 mg/0.3 mL subcutaneous syringe RxNorm: 462972 1 injection SQ BID 03/01/2017 02/28/2017 In active Detrol LA 4 mg capsu le,extended release RxNorm: 696654 TAKE 1 CAPSULE BY JAVON TH ONCE DAILY 02/19/2017 05/09/2017 Inactive Generic For:DETROL LA 4MG C AP 02/19/2017 2:36:00 PM hydrocodone 5 mg-humberto taminophen 325 mg tablet RxNorm: 077643 1-2 Tablet(s) PO Q6 P RN 02/04/2017 No Stop Date Active Zetia 10 mg tablet RxNorm: 756335 TAKE 1 TABLET BY MOUTH DAILY 01/25/2017 04/13/2018 Inactive 01/23/2017 9:03:48 AM omeprazole 20 mg cap sean,delayed release RxNorm: 910974 TAKE 1 CAPSULE BY JAVON TH EVERY DAY 01/25/2017 07/21/2017 Inactive Generic For:PRILOSEC 20MG 01/23/2017 9: 03:45 AM Coumadin 4 mg tablet RxNorm: 014810 TAKE 1 TABLET BY MOUTH THREE TIMES PER [place] (WEDNESDAY, WEDNESDAY AND WEDNESDAY) 01/25/2017 04/22/2017 Inactive Generic For:COUMADIN 4MG 01/23/2017 9:03:51 AM sodium bicarbonate 6 50 mg tablet RxNorm: 236003 TAKE 2 TABLETS BY JAVON TH TWICE DAILY 12/24/2016 06/21/2017 In active 12/24/2016 9:09:27 AM Lasix 20 mg tablet RxNorm: 656137 1 Tablet(s) PO daily 12/24/2016 04/22/2017 Inactive Synthroid 137 mcg ta blet RxNorm: 381574 TAKE 1 TABLET BY MOUT H ONCE DAILY 11/24/2016 05/22/2017 In active Generic For:SYNTHROID 137MCG TAB 2016 9:04:37 AM Coumadin 4 mg tablet RxNorm: 632753 TAKE 1 TABLET BY MOUTH THREE TIMES PER [place] (WEDNESDAY, WEDNESDAY AND WEDNESDAY) 11/24/2016 01/22/2017 Inactive Generic For:COUMADIN 4MG 11/24/2016 9:04:41 AM hydrocodone 5 mg-humberto taminophen 325 mg tablet RxNorm: 077048 1-2 Tablet(s) PO Q6 P RN 11/17/2016 02/03/2017 In active Carafate 1 gram tablet RxNorm: 044451 TAKE ONE TABLET BY MOUTH TWICE DAILY 10/27/2016 05/23/2017 In active Generic For:CARAFATE 1GM 10/26/2016 8:3 9:42 AM allopurinol 300 mg t ablet RxNorm: 164069 Tablet(s) TAKE 1 TABL ET BY MOUTH ONCE DAILY. 10/26/2016 04/22/2017 Inactive Lipitor 40 mg tablet RxNorm: 112520 1 Tablet(s) PO daily 09/25/2016 09/19/2017 Inactive Coumadin 4 mg tablet RxNorm: 790215 TAKE 1 TABLET BY MOUTH THREE TIMES PER [place] (WEDNESDAY, WEDNESDAY AND WEDNESDAY) 09/25/2016 11/23/2016 Inactive Generic For:COUMADIN 4MG 09/25/2016 8:55:58 AM Zetia 10 mg tablet RxNorm: 712086 1 Tablet(s) PO daily 09/25/2016 01/22/2017 Inactive gave 1 month of samples clonazepam 0.5 mg ta blet RxNorm: 275906 1 Tablet(s) PO BID 09/21/2016 02/16/2017 Inactive Lasix 20 mg tablet RxNorm: 456524 1 Tablet(s) PO daily 09/15/2016 12/23/2016 Inactive potassium chloride 2 0 mEq/15 mL oral liquid RxNorm: 469163 Milliliter(s) 30 Milliliter(s) (40mEq) PO daily 09/15/2016 01/12/2017 Inactive Lasix 20 mg tablet RxNorm: 213270 2 Tablet(s) PO daily 09/10/2016 09/12/2016 Inactive Lasix 20 mg tablet RxNorm: 186542 1 Tablet(s) PO daily 08/28/2016 08/30/2016 Inactive Lasix 20 mg tablet RxNorm: 159052 1 Tablet(s) PO daily 08/20/2016 08/22/2016 Inactive Detrol LA 4 mg capsu le,extended release RxNorm: 868513 TAKE 1 CAPSULE BY JAVON TH ONCE DAILY 07/27/2016 02/18/2017 Inactive Generic For:DETROL LA 4MG C AP 07/27/2016 9:08:27 AM Coumadin 4 mg tablet RxNorm: 742944 1 Tablet(s) PO 3 x week wed th and sun 07/27/2016 09/24/2016 In active omeprazole 20 mg cap sean,delayed release RxNorm: 200179 Capsule(s) PO TAKE 1 CAPSULE BY MOUTH ONCE DAILY 07/27/2016 01/22/2017 Inactive venlafaxine ER 75 mg capsule,extended release 24 hr RxNorm: 388507 1 Capsule(s) PO daily 06/29/2016 06/21/2017 Inactive sodium bicarbonate 6 50 mg tablet RxNorm: 339089 TAKE 2 TABLETS BY JAVON TH TWICE DAILY 06/29/2016 12/23/2016 In active 06/27/2016 9:05:39 AM Coumadin 4 mg tablet RxNorm: 486606 1 Tablet(s) PO 3 x week e and sun 06/09/2016 06/08/2016 In active Coumadin 4 mg tablet RxNorm: 082358 1 Tablet(s) PO 3 x week e and sun 06/09/2016 07/26/2016 In active Zetia 10 mg tablet RxNorm: 238066 1 Tablet(s) PO daily 06/09/2016 06/08/2016 Inactive gave 1 month of samples Zetia 10 mg tablet RxNorm: 374939 1 Tablet(s) PO daily 06/09/2016 09/24/2016 Inactive gave 1 month of samples Effexor 75 mg tablet RxNorm: 223974 1 Tablet(s) PO daily 06/08/2016 06/28/2016 Inactive spironolactone 25 mg tablet RxNorm: 471549 1 Tablet(s) PO daily 06/08/2016 05/23/2017 Inactive Synthroid 137 mcg ta blet RxNorm: 035578 1 Tablet(s) PO daily 05/07/2016 11/02/2016 Inactive allopurinol 300 mg t ablet RxNorm: 528090 Tablet(s) TAKE 1 TABL ET BY MOUTH ONCE DAILY. 04/28/2016 10/24/2016 Inactive clonazepam 0.5 mg ta blet RxNorm: 027519 1 Tablet(s) PO BID 04/20/2016 09/15/2016 Inactive Flonase Allergy Reli ef 50 mcg/actuation nasal spray,suspension RxNorm: 0301381 1 [place] NASAL BID 04/02/2016 No Stop Date Active Zithromax Z-Thomas 250 mg tablet RxNorm: 979092 Tablet(s) PO 04/02/2016 08/27/2016 Inactive cetirizine 10 mg tablet RxNorm: 5443463 1 Tablet(s) PO daily 04/02/2016 05/01/2016 Inactive Carafate 1 gram tablet RxNorm: 067897 Tablet(s) TAKE 1 TABLET TWICE A DAY FOR 30 DAYS 03/30/2016 10/25/2016 Inactive Generic For:CARAFATE 1GM 02/08/2015 12:3 6:39 PM Plavix 75 mg tablet RxNorm: 602302 1 Tablet(s) PO daily 03/11/2016 09/06/2016 Inactive sodium bicarbonate 6 50 mg tablet RxNorm: 361670 Tablet(s) 2 Tablet(s) PO BID 02/28/2016 06/26/2016 In active omeprazole 20 mg cap sean,delayed release RxNorm: 195186 Capsule(s) PO TAKE 1 CAPSULE BY MOUTH ONCE DAILY 01/31/2016 07/26/2016 Inactive Fish Oil 1,000 mg ca psule RxNorm: 1 Capsule(s) PO BID 01/14/2016 No Stop Date Active Synthroid 137 mcg ta blet RxNorm: 401247 1 Tablet(s) PO daily 01/14/2016 05/06/2016 Inactive Detrol LA 4 mg capsu le,extended release RxNorm: 666311 TAKE 1 CAPSULE BY JAVON TH ONCE DAILY 12/30/2015 07/26/2016 Inactive Generic For:DETROL LA 4MG C AP 12/30/2015 9:11:01 AM potassium chloride 2 0 mEq/15 mL oral liquid RxNorm: 043130 Milliliter(s) 30 Milliliter(s) (40mEq) PO daily 12/02/2015 03/30/2016 Inactive sodium bicarbonate 6 50 mg tablet RxNorm: 794357 Tablet(s) 2 Tablet(s) PO BID 10/31/2015 02/27/2016 In active Lipitor 40 mg tablet RxNorm: 648201 1 Tablet(s) PO daily 10/09/2015 09/24/2016 Inactive sodium bicarbonate 6 50 mg tablet RxNorm: 567898 2 Tablet(s) PO BID 10/01/2015 10/30/2015 Inactive allopurinol 300 mg t ablet RxNorm: 593019 TAKE 1 TABLET BY MOUT H ONCE DAILY. 10/01/2015 04/27/2016 In active Generic For:ZYLOPRIM 300 MG TABLET 09/19 9:21:15 AM clonazepam 0.5 mg ta blet RxNorm: 785300 1 Tablet(s) PO BID 09/30/2015 04/19/2016 Inactive Coumadin 5 mg tablet RxNorm: 360386 1 Tablet(s) PO daily 09/27/2015 05/31/2017 Inactive Generic For:COUMADIN 5MG TAB N O T I C E PRESCRIPTION PREVIOUSLY AUTHORIZED BY DOCTOR:BOBBY ZULETA Synthroid 125 mcg ta blet RxNorm: 524691 1 Tablet(s) PO daily 09/27/2015 09/26/2015 Inactive Synthroid 125 mcg ta blet RxNorm: 907377 1 Tablet(s) PO daily 09/27/2015 01/13/2016 Inactive Carafate 1 gram tablet RxNorm: 663886 Tablet(s) TAKE 1 TABLET TWICE A DAY FOR 30 DAYS 09/02/2015 03/29/2016 Inactive Generic For:CARAFATE 1GM 02/08/2015 12:3 6:39 PM sodium bicarbonate 6 50 mg tablet RxNorm: 733346 2 Tablet(s) PO BID 09/02/2015 09/30/2015 Inactive Prilosec 20 mg capsu le,delayed release RxNorm: 307153 TAKE 1 CAPSULE BY JAVON TH ONCE DAILY 08/02/2015 01/28/2016 Inactive Generic For:PRILOSEC 20MG 08/02/2015 10:03:09 AM N O T I C E PRESCRIPTION PREVIOUSLY AUTHORIZED BY DOCTOR:BOBBY ZULETA Zyrtec 10 mg capsule RxNorm: 4035008 1 Capsule(s) PO daily 07/15/2015 08/13/2015 Inactive Keflex 500 mg capsule RxNorm: 888940 1 Capsule(s) PO TID 07/15/2015 07/21/2015 Inactive cetirizine 10 mg cap sean RxNorm: 3020099 1 Capsule(s) PO daily 07/15/2015 08/13/2015 Inactive hydrocodone 5 mg-humberto taminophen 325 mg tablet RxNorm: 873567 1-2 Tablet(s) PO Q6 P RN 06/10/2015 11/16/2016 In active sodium bicarbonate 6 50 mg tablet RxNorm: 300480 2 Tablet(s) PO BID 06/03/2015 08/31/2015 Inactive Detrol LA 4 mg capsu le,extended release RxNorm: 848113 TAKE 1 CAPSULE BY JAVON TH ONCE DAILY 06/03/2015 12/29/2015 Inactive Generic For:DETROL LA 4MG C AP N O T I C E PRESCRIPTION PREVIOUSLY AUTHORIZED BY DOCTOR:BOBBY ZULETA atenolol 50 mg tablet RxNorm: 824836 1 Tablet(s) PO daily TAKE 1 TABLET BY MO UTH DAILY 05/07/2015 08/23/2017 Inactive Generic For:TENORMIN 50MG 05/04/2015 9:07:22 AM spironolactone 25 mg tablet RxNorm: 709471 1 Tablet(s) PO daily 05/06/2015 06/07/2016 Inactive venlafaxine ER 75 mg capsule,extended release 24 hr RxNorm: 588232 1 Capsule(s) PO daily 05/04/2015 06/28/2016 Inactive atenolol 50 mg tablet RxNorm: 194713 TAKE 1 TABLET BY MOUTH DAILY 05/04/2015 05/06/2015 Inactive Generic For:TENORMIN 50MG 05/04/2015 9: 07:22 AM Synthroid 150 mcg ta blet RxNorm: 980115 TAKE 1 TABLET BY MOUT H ONCE DAILY. 04/05/2015 09/26/2015 In active Generic For:SYNTHROID 150MCG TAB 2014 4:45:40 PM N O T I C E PRESCRIPTION PREVIOUSLY AUTHORIZED BY DOCTOR:BOBBY ZULETA Effexor 75 mg tablet RxNorm: 324422 1 Tablet(s) PO daily 04/05/2015 07/03/2015 Inactive Coumadin 5 mg tablet RxNorm: 778964 TAKE 1 AND 1/2 TABLETS BY MOUTH ONCE MYRANDA LY 04/04/2015 09/26/2015 In active Generic For:COUMADIN 5MG TAB N O T I C E PRESCRIPTION PREVIOUSLY AUTHORIZED BY DOCTOR:BOBBY ZULETA clonazepam 0.5 mg ta blet RxNorm: 780444 1 Tablet(s) PO BID 03/13/2015 11/05/2015 Inactive sodium bicarbonate 6 50 mg tablet RxNorm: 995385 2 Tablet(s) PO BID 03/08/2015 06/02/2015 Inactive allopurinol 300 mg t ablet RxNorm: 002694 TAKE 1 TABLET BY MOUT H ONCE DAILY. 03/05/2015 09/30/2015 In active N O T I C E PRESCRIPTION PREVIOUSLY A UTHORIZED BY DOCTOR:BOBBY ZULETA Plavix 75 mg tablet RxNorm: 418900 1 Tablet(s) PO daily 02/12/2015 09/09/2015 Inactive clonazepam 0.5 mg ta blet RxNorm: 913330 1 Tablet(s) PO BID 02/11/2015 03/11/2015 Inactive Carafate 1 gram tablet RxNorm: 630763 TAKE 1 TABLET TWICE A DAY FOR 30 DAYS 02/08/2015 02/07/2015 In active Generic For:CARAFATE 1GM 02/08/2015 12:3 6:39 PM Carafate 1 gram tablet RxNorm: 928625 Tablet(s) TAKE 1 TABLET TWICE A DAY FOR 30 DAYS 02/08/2015 09/01/2015 Inactive Generic For:CARAFATE 1GM 02/08/2015 12:3 6:39 PM potassium chloride 2 0 mEq/15 mL oral liquid RxNorm: 675219 30 Milliliter(s) (40m Eq) PO daily 02/05/2015 12/01/2015 Inactive atenolol 50 mg tablet RxNorm: 118396 1 Tablet(s) PO daily 02/04/2015 05/03/2015 Inactive [SAVINGS FOR NON-COVERED DRUGS -- BIN:00 3585, PCN: [email or web address], Group: XXXXX, ID# XXXXXXX, Questions: . THIS IS NOT INSURANCE.] potassium chloride 2 0 mEq/15 mL oral liquid RxNorm: 665737 30 Milliliter(s) (40m Eq) PO daily 01/08/2015 02/04/2015 Inactive potassium chloride 2 0 mEq/15 mL oral liquid RxNorm: 303761 30 Milliliter(s) (40m Eq) PO daily 12/07/2014 01/07/2015 Inactive atenolol 50 mg tablet RxNorm: 748161 1 Tablet(s) PO daily 11/09/2014 11/08/2014 Inactive atenolol 50 mg tablet RxNorm: 423626 1 Tablet(s) PO daily 11/09/2014 02/03/2015 Inactive [SAVINGS FOR NON-COVERED DRUGS -- BIN:[id number], PCN: [id number], Group: XXXXX, ID# [id number], Questions: . THIS IS NOT INSURANCE.] Voltaren 1 % topical gel RxNorm: 607981 [facility] No St art Date Active verapamil ER (HS) 24 0 mg tablet,extended release 24 hr RxNorm: 813044 1 Tablet(s) PO daily No Start Date Active aspirin 81 mg tablet RxNorm: 765453 1 Tablet(s) PO daily No Start Date Active Zofran 4 mg tablet RxNorm: 413642 1 Tablet(s) PO PRN No Start Date Active B12 1000 mcg RxNorm: 1 Tablet(s) PO daily No Start Date Active magnesium oxide 400 mg capsule RxNorm: 506881 2 Capsule(s) PO BID No Start Date Active Synthroid 150 mcg ta blet RxNorm: 951001 1 Tablet(s) PO daily No Start Date 04/04/2015 Inactive Coumadin 5 mg tablet RxNorm: 276023 1 Tablet(s) PO daily No Start Date 04/03/2015 Inactive cranberry 1,000 mg c apsule RxNorm: 180709 1 Capsule(s) PO daily No Start Date 04/13/2018 Inactive allopurinol 300 mg t ablet RxNorm: 656120 1 Tablet(s) PO daily No Start Date 03/04/2015 Inactive Prilosec 20 mg capsu le,delayed release RxNorm: 113108 1 Capsule(s) PO PRN No Start Date 08/01/2015 Inactive potassium chloride 2 0 mEq/15 mL oral liquid RxNorm: 012563 30 Milliliter(s) (40m Eq) PO daily No Start Date 12/06/2014 Inactive atenolol 50 mg tablet RxNorm: 341578 1 Tablet(s) PO daily No Start Date 08/29/2017 Inactive Lipitor 40 mg tablet RxNorm: 724063 1 Tablet(s) PO daily No Start Date 09/19/2017 Inactive Effexor 75 mg tablet RxNorm: 220981 1 Tablet(s) PO daily No Start Date 04/04/2015 Inactive Carafate 1 gram tablet RxNorm: 017873 1 Tablet(s) PO BID No Start Date 02/07/2015 Inactive clonazepam 0.5 mg ta blet RxNorm: 270240 1 Tablet(s) PO BID No Start Date 02/10/2015 Inactive Plavix 75 mg tablet RxNorm: 115729 1 Tablet(s) PO daily No Start Date 02/11/2015 Inactive sodium bicarbonate 6 50 mg tablet RxNorm: 786628 2 Tablet(s) PO BID No Start Date 09/01/2015 Inactive Lovenox 30 mg/0.3 mL subcutaneous syringe RxNorm: 504067 0.3 Milliliter(s) SQ Q12H No Start Date 03/15/2017 Inactive Fish Oil 1,000 mg ca psule RxNorm: 1 Capsule(s) PO daily No Start Date 01/13/2016 Inactive Detrol LA 4 mg capsu le,extended release RxNorm: 819836 1 Capsule(s) PO daily No Start Date [...] Code Item Item Code Result Date Pt Apf0179 PT 29.2 seconds 08/05/2018 Pt Krp2003 INR 2.8 08/05/2018 Pt Mdi0931 Low Intensity - 1.5-2.0 08/05/2018 Pt Jzy3456 Mod intensity - 2.0-3.0 08/05/2018 Pt Aos1450 Hi intensity - 3.0-4.0 08/05/2018 Pt Wej3490 PT 30.2 seconds 07/25/2018 Pt Gcp1171 INR 2.9 07/25/2018 Pt Xss8743 Low Intensity - 1.5-2.0 07/25/2018 Pt Syo9202 Mod intensity - 2.0-3.0 07/25/2018 Pt Vim4610 Hi intensity - 3.0-4.0 07/25/2018 Pt Hno8530 PT 25.2 seconds 07/19/2018 Pt Sgv7983 INR 2.3 07/19/2018 Pt Vgf2999 Low Intensity - 1.5-2.0 07/19/2018 Pt Kdu9126 Mod intensity - 2.0-3.0 07/19/2018 Pt Uff0296 Hi intensity - 3.0-4.0 07/19/2018 Pt Nvc8792 PT 17.4 seconds 07/15/2018 Pt Oto0404 INR 1.5 07/15/2018 Pt Xfw3825 Low Intensity - 1.5-2.0 07/15/2018 Pt Bdh2914 Mod intensity - 2.0-3.0 07/15/2018 Pt Pzg7919 Hi intensity - 3.0-4.0 07/15/2018 Pt Cda2249 PT 17.8 seconds 07/08/2018 Pt Pdc9620 INR 1.5 07/08/2018 Pt Mfq1374 Low Intensity - 1.5-2.0 07/08/2018 Pt Jrk8690 Mod intensity - 2.0-3.0 07/08/2018 Pt Tnh4796 Hi intensity - 3.0-4.0 07/08/2018 Pt Nie7947 PT 19.2 seconds 07/01/2018 Pt Gqs7065 INR 1.7 07/01/2018 Pt Btq1302 Low Intensity - 1.5-2.0 07/01/2018 Pt Eet8778 Mod intensity - 2.0-3.0 07/01/2018 Pt Phy6058 Hi intensity - 3.0-4.0 07/01/2018 Pt Kjc6960 PT 17.4 seconds 06/23/2018 Pt Wsq0756 INR 1.5 06/23/2018 Pt Vly0456 Low Intensity - 1.5-2.0 06/23/2018 Pt Yvw5650 Mod intensity - 2.0-3.0 06/23/2018 Pt Pgv2674 Hi intensity - 3.0-4.0 06/23/2018 Pt Ydk9224 PT 18.4 seconds 06/17/2018 Pt Oxr2550 INR 1.6 06/17/2018 Pt Ixz0247 Low Intensity - 1.5-2.0 06/17/2018 Pt Mba1158 Mod intensity - 2.0-3.0 06/17/2018 Pt Mvn8166 Hi intensity - 3.0-4.0 06/17/2018 Sed Rate [...] 30.4 pg 06/08/2018 Cbc With Differential Ord2 [employer]% 9.4 % 06/08/2018 Cbc With Differential Ord2 [...] 1.20 K/ul 06/08/2018 Cbc With Differential Ord2 [employer] ABS# 0.5 K/ul 06/08/2018 Cbc With Differential Ord2 Eos ABS# 0.1 K/ul 06/08/2018 Cbc With Differential Ord2 Baso ABS# 0.1 K/ul 06/08/2018 C-Reactive Protein Qnt Crqnt CRP 0.1 mg/dl 06/08/2018 Pt Gqv6979 PT 17.6 seconds 06/08/2018 Pt Fhq2595 INR 1.5 06/08/2018 Pt Wrq0900 Low Intensity - 1.5-2.0 06/08/2018 Pt Cqc0378 Mod intensity - 2.0-3.0 06/08/2018 Pt Mik4383 Hi intensity - 3.0-4.0 06/08/2018 Pt Cjw3276 PT 16.8 seconds 05/10/2018 Pt Zuy5664 INR 1.4 05/10/2018 Pt Mha8666 Low Intensity - 1.5-2.0 05/10/2018 Pt Vep4667 Mod intensity - 2.0-3.0 05/10/2018 Pt Huk9241 Hi intensity - 3.0-4.0 05/10/2018 Pt Tdq3314 PT 16.7 seconds 05/04/2018 Pt Uoa2546 INR 1.4 05/04/2018 Pt Pcg1654 Low Intensity - 1.5-2.0 05/04/2018 Pt Dob5666 Mod intensity - 2.0-3.0 05/04/2018 Pt Ypl0678 Hi intensity - 3.0-4.0 05/04/2018 Free T4 Obb156 FREE T4 1.09 ng/dL 04/14/2018 Tsh Ord6 TSH (3rd IS) 2.36 uIU/mL 04/14/2018 Pt Gzd7335 PT 20.3 seconds 04/14/2018 Pt Xje1912 INR 1.8 04/14/2018 Pt Ypn0498 Low Intensity - 1.5-2.0 04/14/2018 Pt Dyz8825 Mod intensity - 2.0-3.0 04/14/2018 Pt Zjn5722 Hi intensity - 3.0-4.0 04/14/2018 Lipid Ord30 CHOL 149 mg/dL 04/14/2018 Lipid Ord30 HDL 49.0 mg/dl 04/14/2018 Lipid Ord30 TRIG 161 mg/dL 04/14/2018 Lipid Ord30 LDL 68 mg/dL 04/14/2018 Lipid Ord30 C/HDL 3.0 Ratio 04/14/2018 %Hba1C Wyb583 % HbA1c 63481-3 5.9 % 04/14/2018 %Hba1C Tbl276 Gluc Ave 123 mg/dL 04/14/2018 Comp Metabolic Jyi177 NA 140 mEq/L 04/14/2018 Comp Metabolic Fwg812 K 4.1 mEq/L 04/14/2018 Comp Metabolic Lfi438 CL 105 mEq/L 04/14/2018 Comp Metabolic Yiy330 CO2 28.0 mEq/L 04/14/2018 Comp Metabolic Anq244 AN ION GAP 11 04/14/2018 Comp Metabolic Svz219 GL UCOSE 112 mg/dL 04/14/2018 Comp Metabolic Hag033 Cr eat 1.0 mg/dL 04/14/2018 Comp Metabolic Ewl900 eG FR 58 ml/min/1.73m2 04/14 Comp Metabolic Ioa556 BUN 20 mg/dL 04/14/2018 Comp Metabolic Gya499 B/ C Ratio 20.2 Ratio 04/14/2018 Comp Metabolic Jrg865 CA LCIUM 10.0 mg/dL 04/14/2018 Comp Metabolic Fiw048 AL K PHOS 51 U/L 04/14/2018 Comp Metabolic Uxe772 T(SGOT) 24 U/L 04/14/2018 Comp Metabolic Hns179 AL T(SGPT) 21 U/L 04/14/2018 Comp Metabolic Qzg503 BI LI T 0.8 mg/dL 04/14/2018 Comp Metabolic Swq924 AL BUMIN 4.2 g/dL 04/14/2018 Comp Metabolic Qka993 TP RO 7.1 g/dL 04/14/2018 Comp Metabolic Ysx034 GL OB 2.9 g/dL 04/14/2018 Comp Metabolic Ayo620 A/ G Ratio 1.5 Ratio 04/14/2018 Comp Metabolic Mzu751 Os mo 283 mOsmo 04/14/2018 Cbc With [...] 30.7 pg 04/14/2018 Cbc With Differential Ord2 [employer]% 10.6 % 04/14/2018 Cbc With Differential Ord2 [...] 1.18 K/ul 04/14/2018 Cbc With Differential Ord2 [employer] ABS# 0.5 K/ul 04/14/2018 Cbc With Differential Ord2 Eos ABS# 0.2 K/ul 04/14/2018 Cbc With Differential Ord2 Baso ABS# 0.1 K/ul 04/14/2018 Pt Pbs6436 PT 29.3 seconds 02/11/2018 Pt Mmu4122 INR 2.8 02/11/2018 Pt Rxr3724 Low Intensity - 1.5-2.0 02/11/2018 Pt Lkn4502 Mod intensity - 2.0-3.0 02/11/2018 Pt Hup7440 Hi intensity - 3.0-4.0 02/11/2018 Comp Metabolic Xhk097 NA 141 mEq/L 01/05/2018 Comp Metabolic Fke273 K 3.7 mEq/L 01/05/2018 Comp Metabolic Tea731 CL 102 mEq/L 01/05/2018 Comp Metabolic Sdz955 CO2 29.0 mEq/L 01/05/2018 Comp Metabolic Oaj786 AN ION GAP 14 01/05/2018 Comp Metabolic Ojx223 GL UCOSE 136 mg/dL 01/05/2018 Comp Metabolic Uim373 Cr eat 1.0 mg/dL 01/05/2018 Comp Metabolic Nku145 eG FR 61 ml/min/1.73m2 01/05 Comp Metabolic Otp351 BUN 22 mg/dL 01/05/2018 Comp Metabolic Rfw696 B/ C Ratio 22.9 Ratio 01/05/2018 Comp Metabolic Vtu445 CA LCIUM 9.7 mg/dL 01/05/2018 Comp Metabolic Tsk613 AL K PHOS 57 U/L 01/05/2018 Comp Metabolic Ahb241 T(SGOT) 21 U/L 01/05/2018 Comp Metabolic Bpx975 AL T(SGPT) 19 U/L 01/05/2018 Comp Metabolic Oje274 BI LI T 0.9 mg/dL 01/05/2018 Comp Metabolic Qbv581 AL BUMIN 4.1 g/dL 01/05/2018 Comp Metabolic Iqk258 TP RO 7.1 g/dL 01/05/2018 Comp Metabolic Bok382 GL OB 3.0 g/dL 01/05/2018 Comp Metabolic Awj197 A/ G Ratio 1.4 Ratio 01/05/2018 Comp Metabolic Dlt716 Os mo 287 mOsmo 01/05/2018 Free T4 Vgj460 FREE T4 1.05 ng/dL 01/05/2018 %Hba1C Elh776 % HbA1c 96301-1 6.0 % 01/05/2018 %Hba1C Aki065 Gluc Ave 126 mg/dL 01/05/2018 Cbc With [...] 30.6 pg 01/05/2018 Cbc With Differential Ord2 [employer]% 10.5 % 01/05/2018 Cbc With Differential Ord2 [...] 1.27 K/ul 01/05/2018 Cbc With Differential Ord2 [employer] ABS# 0.5 K/ul 01/05/2018 Cbc With Differential Ord2 Eos ABS# 0.2 K/ul 01/05/2018 Cbc With Differential Ord2 Baso ABS# 0.1 K/ul 01/05/2018 Pt Hix6472 PT 20.7 seconds 01/05/2018 Pt Nzb7750 INR 1.8 01/05/2018 Pt Uin8826 Low Intensity - 1.5-2.0 01/05/2018 Pt Fdx2354 Mod intensity - 2.0-3.0 01/05/2018 Pt Bdk9596 Hi intensity - 3.0-4.0 01/05/2018 Tsh Ord6 TSH (3rd IS) 2.34 uIU/mL 01/05/2018 Lipid Ord30 CHOL 156 mg/dL 01/05/2018 Lipid Ord30 HDL 48.0 mg/dl 01/05/2018 Lipid Ord30 TRIG 207 mg/dL 01/05/2018 Lipid Ord30 LDL 67 mg/dL 01/05/2018 Lipid Ord30 C/HDL 3.3 Ratio 01/05/2018 Pt Zcu5886 PT 28.3 seconds 11/26/2017 Pt Zor3180 INR 2.6 11/26/2017 Pt Naj5670 Low Intensity - 1.5-2.0 11/26/2017 Pt Gwg8189 Mod intensity - 2.0-3.0 11/26/2017 Pt Oeq5886 Hi intensity - 3.0-4.0 11/26/2017 Pt Vbk8508 PT 36.5 seconds 11/19/2017 Pt Vdv5462 INR 3.6 11/19/2017 Pt Nvc2228 Low Intensity - 1.5-2.0 11/19/2017 Pt Vwv6737 Mod intensity - 2.0-3.0 11/19/2017 Pt Fjv3649 Hi intensity - 3.0-4.0 11/19/2017 Pt Ggx5256 PT 22.9 seconds 10/15/2017 Pt Tbn0623 INR 2.0 10/15/2017 Pt Mqs2180 Low Intensity - 1.5-2.0 10/15/2017 Pt Qdb4867 Mod intensity - 2.0-3.0 10/15/2017 Pt Pvb3283 Hi intensity - 3.0-4.0 10/15/2017 Pt Scj1175 PT 25.9 seconds 10/01/2017 Pt Gjz7743 INR 2.4 10/01/2017 Pt Rho1443 Low Intensity - 1.5-2.0 10/01/2017 Pt Lcx9828 Mod intensity - 2.0-3.0 10/01/2017 Pt Cgh2102 Hi intensity - 3.0-4.0 10/01/2017 Pt Svz7726 PT 20.6 seconds 09/24/2017 Pt Fyn8196 INR 1.8 09/24/2017 Pt Jnm6911 Low Intensity - 1.5-2.0 09/24/2017 Pt Vob3819 Mod intensity - 2.0-3.0 09/24/2017 Pt Kso9818 Hi intensity - 3.0-4.0 09/24/2017 Pt Fav6063 PT 21.0 seconds 09/15/2017 Pt Irv8627 INR 1.8 09/15/2017 Pt Nyd8519 Low Intensity - 1.5-2.0 09/15/2017 Pt Ebc2536 Mod intensity - 2.0-3.0 09/15/2017 Pt Jla7612 Hi intensity - 3.0-4.0 09/15/2017 Pt Fmr7261 PT 19.0 seconds 09/03/2017 Pt Bxn0329 INR 1.6 09/03/2017 Pt Irh0774 Low Intensity - 1.5-2.0 09/03/2017 Pt Iij9862 Mod intensity - 2.0-3.0 09/03/2017 Pt Qvl1577 Hi intensity - 3.0-4.0 09/03/2017 Pt Yje9929 PT 17.6 seconds 08/23/2017 Pt Tcm5408 INR 1.5 08/23/2017 Pt Jpj0697 Low Intensity - 1.5-2.0 08/23/2017 Pt Pim5125 Mod intensity - 2.0-3.0 08/23/2017 Pt Bfv0598 Hi intensity - 3.0-4.0 08/23/2017 Pt Kto8826 PT 12.7 seconds 08/20/2017 Pt Cfb3226 INR 1.0 08/20/2017 Pt Jif1798 Low Intensity - 1.5-2.0 08/20/2017 Pt Bqm8424 Mod intensity - 2.0-3.0 08/20/2017 Pt Btl1298 Hi intensity - 3.0-4.0 08/20/2017 Pt Jjr3693 PT 12.9 seconds 08/17/2017 Pt Qxv0991 INR 1.0 08/17/2017 Pt Bga1146 Low Intensity - 1.5-2.0 08/17/2017 Pt Yan8226 Mod intensity - 2.0-3.0 08/17/2017 Pt Idm1675 Hi intensity - 3.0-4.0 08/17/2017 Pt Jkg2205 PT 18.5 seconds 08/10/2017 Pt Drj2311 INR 1.6 08/10/2017 Pt Edy1161 Low Intensity - 1.5-2.0 08/10/2017 Pt Scv4485 Mod intensity - 2.0-3.0 08/10/2017 Pt Ywb7910 Hi intensity - 3.0-4.0 08/10/2017 Tsh Ord6 [...] 29.3 pg 05/27/2017 Cbc With Differential Ord2 [employer]% 8.1 % 05/27/2017 Cbc With Differential Ord2 [...] 1.11 K/ul 05/27/2017 Cbc With Differential Ord2 [employer] ABS# 0.6 K/ul 05/27/2017 Cbc With Differential Ord2 Eos ABS# 0.2 K/ul 05/27/2017 Cbc With Differential Ord2 Baso ABS# 0.1 K/ul 05/27/2017 Pt Rtj6122 PT 28.2 seconds 05/27/2017 Pt Tue7401 INR 2.6 05/27/2017 Pt Qqb2602 Low Intensity - 1.5-2.0 05/27/2017 Pt Qap1161 Mod intensity - 2.0-3.0 05/27/2017 Pt Wux6241 Hi intensity - 3.0-4.0 05/27/2017 Lipid Ord30 CHOL 167 mg/dL 05/27/2017 Lipid Ord30 HDL 49.0 mg/dl 05/27/2017 Lipid Ord30 TRIG 347 mg/dL 05/27/2017 Lipid Ord30 LDL 49 mg/dL 05/27/2017 Lipid Ord30 C/HDL 3.4 Ratio 05/27/2017 Magnesium Ord90 Mag 1.4 mg/dL 05/27/2017 %Hba1C Mhe036 % HbA1c 35360-6 5.9 % 05/27/2017 %Hba1C Qma352 Gluc Ave 123 mg/dL 05/27/2017 Comp Metabolic Ava839 NA 138 mEq/L 05/27/2017 Comp Metabolic Ool738 K 4.1 mEq/L 05/27/2017 Comp Metabolic Kwt505 CL 101 mEq/L 05/27/2017 Comp Metabolic Xvw199 CO2 31.0 mEq/L 05/27/2017 Comp Metabolic Fqy073 AN ION GAP 10 05/27/2017 Comp Metabolic Jqb860 GL UCOSE 117 mg/dL 05/27/2017 Comp Metabolic Thx185 Cr eat 0.9 mg/dL 05/27/2017 Comp Metabolic Chr818 eG FR 62 ml/min/1.73m2 05/27 Comp Metabolic Rkk105 BUN 25 mg/dL 05/27/2017 Comp Metabolic Lxm826 B/ C Ratio 26.6 Ratio 05/27/2017 Comp Metabolic Meh172 CA LCIUM 9.5 mg/dL 05/27/2017 Comp Metabolic Ckb691 AL K PHOS 73 U/L 05/27/2017 Comp Metabolic Kis463 T(SGOT) 18 U/L 05/27/2017 Comp Metabolic Lgq256 AL T(SGPT) 12 U/L 05/27/2017 Comp Metabolic Qwx053 BI LI T 0.5 mg/dL 05/27/2017 Comp Metabolic Amw560 AL BUMIN 4.1 g/dL 05/27/2017 Comp Metabolic Aoy042 TP RO 7.1 g/dL 05/27/2017 Comp Metabolic Wlx665 GL OB 3.0 g/dL 05/27/2017 Comp Metabolic Krk882 A/ G Ratio 1.3 Ratio 05/27/2017 Comp Metabolic Jas512 Os mo 281 mOsmo 05/27/2017 Free T4 Fsq077 FREE T4 0.91 ng/dL 05/27/2017 Pt Ftb8443 PT 29.2 seconds 04/16/2017 Pt Mdk5839 INR 2.7 04/16/2017 Pt Vgi3039 Low Intensity - 1.5-2.0 04/16/2017 Pt Ods3693 Mod intensity - 2.0-3.0 04/16/2017 Pt Hft5604 Hi intensity - 3.0-4.0 04/16/2017 Pt Suy0428 PT 30.7 seconds 03/31/2017 Pt Jit0891 INR 2.9 03/31/2017 Pt Myc0628 Low Intensity - 1.5-2.0 03/31/2017 Pt Elv6658 Mod intensity - 2.0-3.0 03/31/2017 Pt Tlw2192 Hi intensity - 3.0-4.0 03/31/2017 Pt Myn1884 PT 21.3 seconds 03/26/2017 Pt Ejx5931 INR 1.9 03/26/2017 Pt Roj9815 Low Intensity - 1.5-2.0 03/26/2017 Pt Oyh6672 Mod intensity - 2.0-3.0 03/26/2017 Pt Ovx2928 Hi intensity - 3.0-4.0 03/26/2017 Pt Gaa8709 PT 19.8 seconds 03/22/2017 Pt Zid5692 INR 1.7 03/22/2017 Pt Ztr9040 Low Intensity - 1.5-2.0 03/22/2017 Pt Bgt0529 Mod intensity - 2.0-3.0 03/22/2017 Pt Qrv3999 Hi intensity - 3.0-4.0 03/22/2017 Pt Gck0187 PT 15.6 seconds 03/19/2017 Pt Qkr3640 INR 1.3 03/19/2017 Pt Fdn5831 Low Intensity - 1.5-2.0 03/19/2017 Pt Bbs2155 Mod intensity - 2.0-3.0 03/19/2017 Pt Dsg2479 Hi intensity - 3.0-4.0 03/19/2017 Pt Ghx2911 PT 13.7 seconds 03/15/2017 Pt Byk9806 INR 1.1 03/15/2017 Pt Ojr1367 Low Intensity - 1.5-2.0 03/15/2017 Pt Kxy9727 Mod intensity - 2.0-3.0 03/15/2017 Pt Xbh2419 Hi intensity - 3.0-4.0 03/15/2017 Pt Kbz0983 PT 25.8 seconds 01/28/2017 Pt Knw9045 INR 2.4 01/28/2017 Pt Tsf4689 Low Intensity - 1.5-2.0 01/28/2017 Pt Wtt5594 Mod intensity - 2.0-3.0 01/28/2017 Pt Sch5499 Hi intensity - 3.0-4.0 01/28/2017 %Hba1C Kjj571 % HbA1c 35395-8 6.4 % 10/23/2016 %Hba1C Kzv999 Gluc Ave 137 mg/dL 10/23/2016 Comp Metabolic Hid401 NA 138 mEq/L 10/23/2016 Comp Metabolic Koq905 K 3.4 mEq/L 10/23/2016 Comp Metabolic Mzz513 CL 100 mEq/L 10/23/2016 Comp Metabolic Wkx244 CO2 30.0 mEq/L 10/23/2016 Comp Metabolic Hmd310 AN ION GAP 11 10/23/2016 Comp Metabolic Jhk400 GL UCOSE 139 mg/dL 10/23/2016 Comp Metabolic Vrk306 Cr eat 0.9 mg/dL 10/23/2016 Comp Metabolic Ixb478 eG FR 62 ml/min/1.73m2 10/23 Comp Metabolic Vuq927 BUN 22 mg/dL 10/23/2016 Comp Metabolic Jbw102 B/ C Ratio 23.4 Ratio 10/23/2016 Comp Metabolic Snk790 CA LCIUM 8.7 mg/dL 10/23/2016 Comp Metabolic Xal873 AL K PHOS 66 U/L 10/23/2016 Comp Metabolic Vdj105 T(SGOT) 20 U/L 10/23/2016 Comp Metabolic Ujp623 AL T(SGPT) 10 U/L 10/23/2016 Comp Metabolic Vgj026 BI LI T 0.5 mg/dL 10/23/2016 Comp Metabolic Bvg426 AL BUMIN 3.5 g/dL 10/23/2016 Comp Metabolic Bkl025 TP RO 6.3 g/dL 10/23/2016 Comp Metabolic Ibg556 GL OB 2.8 g/dL 10/23/2016 Comp Metabolic Dwf713 A/ G Ratio 1.3 Ratio 10/23/2016 Comp Metabolic Zbj130 Os mo 281 mOsmo 10/23/2016 Pt Hin4612 PT 26.8 seconds 10/23/2016 Pt Rid4126 INR 2.7 10/23/2016 Pt Cbd2917 Low Intensity - 1.5-2.0 10/23/2016 Pt Zdf8214 Mod intensity - 2.0-3.0 10/23/2016 Pt Hhb3495 Hi intensity - 3.0-4.0 10/23/2016 Pt Gpl6564 PT 28.3 seconds 09/25/2016 Pt Mzz8010 INR 2.8 09/25/2016 Pt Ars6366 Low Intensity - 1.5-2.0 09/25/2016 Pt Xbh9929 Mod intensity - 2.0-3.0 09/25/2016 Pt Bxt3861 Hi intensity - 3.0-4.0 09/25/2016 Metabolic Ord15 [...] Metabolic Ord15 CALCIUM 8.8 mg/dL 09/25/2016 Pt Bxm1296 PT 30.6 seconds 09/11/2016 Pt Fpx3038 INR 3.2 09/11/2016 Pt Agl1984 Low Intensity - 1.5-2.0 09/11/2016 Pt Txj0836 Mod intensity - 2.0-3.0 09/11/2016 Pt Jom7647 Hi intensity - 3.0-4.0 09/11/2016 Comp Metabolic Dih846 NA 138 mEq/L 09/11/2016 Comp Metabolic Bxf779 K 4.4 mEq/L 09/11/2016 Comp Metabolic Fsz129 CL 103 mEq/L 09/11/2016 Comp Metabolic Kwn661 CO2 31.0 mEq/L 09/11/2016 Comp Metabolic Jfw399 AN ION GAP 8 09/11/2016 Comp Metabolic Nup953 GL UCOSE 146 mg/dL 09/11/2016 Comp Metabolic Mjx865 Cr eat 1.0 mg/dL 09/11/2016 Comp Metabolic Hds412 eG FR 60 ml/min/1.73m2 09/11 Comp Metabolic Emx407 BUN 16 mg/dL 09/11/2016 Comp Metabolic Dzk000 B/ C Ratio 16.5 Ratio 09/11/2016 Comp Metabolic Pyp642 CA LCIUM 8.7 mg/dL 09/11/2016 Comp Metabolic Vhh301 AL K PHOS 52 U/L 09/11/2016 Comp Metabolic Uff179 T(SGOT) 19 U/L 09/11/2016 Comp Metabolic Fcq396 AL T(SGPT) 11 U/L 09/11/2016 Comp Metabolic Gsq615 BI LI T 0.7 mg/dL 09/11/2016 Comp Metabolic Dru567 AL BUMIN 3.3 g/dL 09/11/2016 Comp Metabolic Bjk393 TP RO 5.8 g/dL 09/11/2016 Comp Metabolic Wyk153 GL OB 2.5 g/dL 09/11/2016 Comp Metabolic Xvt579 A/ G Ratio 1.3 Ratio 09/11/2016 Comp Metabolic Iai581 Os mo 280 mOsmo 09/11/2016 C-Reactive Protein Qnt Crqnt CRP 0.1 mg/dl 08/21/2016 Comp Metabolic Wrt260 NA 139 mEq/L 08/21/2016 Comp Metabolic Hkr839 K 4.1 mEq/L 08/21/2016 Comp Metabolic Aqv786 CL 102 mEq/L 08/21/2016 Comp Metabolic Mcc558 CO2 30.0 mEq/L 08/21/2016 Comp Metabolic Zsj007 AN ION GAP 11 08/21/2016 Comp Metabolic Wzr318 GL UCOSE 148 mg/dL 08/21/2016 Comp Metabolic Mbv189 Cr eat 1.0 mg/dL 08/21/2016 Comp Metabolic Uag248 eG FR 55 ml/min/1.73m2 08/21 Comp Metabolic Fnk771 BUN 21 mg/dL 08/21/2016 Comp Metabolic Uyt640 B/ C Ratio 20.2 Ratio 08/21/2016 Comp Metabolic Yta362 CA LCIUM 9.4 mg/dL 08/21/2016 Comp Metabolic Ybw835 AL K PHOS 63 U/L 08/21/2016 Comp Metabolic Vod166 T(SGOT) 23 U/L 08/21/2016 Comp Metabolic Mjp170 AL T(SGPT) 16 U/L 08/21/2016 Comp Metabolic Efe116 BI LI T 0.6 mg/dL 08/21/2016 Comp Metabolic Vlv407 AL BUMIN 3.9 g/dL 08/21/2016 Comp Metabolic Pxg104 TP RO 6.8 g/dL 08/21/2016 Comp Metabolic Zbi692 GL OB 2.9 g/dL 08/21/2016 Comp Metabolic Ekt438 A/ G Ratio 1.4 Ratio 08/21/2016 Comp Metabolic Yzu729 Os mo 283 mOsmo 08/21/2016 Sed Rate Ord21 ESR 16 mm/hr 08/21/2016 Pt Rsp0694 PT 27.2 seconds 08/21/2016 Pt Mte5058 INR 2.7 08/21/2016 Pt Uom8450 Low Intensity - 1.5-2.0 08/21/2016 Pt Pns6943 Mod intensity - 2.0-3.0 08/21/2016 Pt Hmh5173 Hi intensity - 3.0-4.0 08/21/2016 Magnesium Ord90 Mag 1.9 mg/dL 08/21/2016 Pt Ufi2141 PT 25.9 seconds 06/17/2016 Pt Fox0880 INR 2.5 06/17/2016 Pt Dnv0871 Low Intensity - 1.5-2.0 06/17/2016 Pt Eak3847 Mod intensity - 2.0-3.0 06/17/2016 Pt Zch5107 Hi intensity - 3.0-4.0 06/17/2016 Tsh Ord6 hTSH II 2.13 uIU/mL 06/08/2016 Free T4 Qtd292 FREE T4 0.79 ng/dL 06/08/2016 Cbc With [...] 26.8 pg 06/08/2016 Cbc With Differential Ord2 [employer]% 12.0 % 06/08/2016 Cbc With Differential Ord2 [...] 1.40 K/ul 06/08/2016 Cbc With Differential Ord2 [employer] ABS# 0.7 K/ul 06/08/2016 Cbc With Differential Ord2 Eos ABS# 0.3 K/ul 06/08/2016 Cbc With Differential Ord2 Baso ABS# 0.1 K/ul 06/08/2016 %Hba1C Kku251 % HbA1c 96940-1 6.2 % 06/08/2016 %Hba1C Crf299 Gluc Ave 131 mg/dL 06/08/2016 Comp Metabolic Mpg211 NA 138 mEq/L 06/08/2016 Comp Metabolic Gsb366 K 3.9 mEq/L 06/08/2016 Comp Metabolic Scc959 CL 105 mEq/L 06/08/2016 Comp Metabolic Bzq239 CO2 27.0 mEq/L 06/08/2016 Comp Metabolic Hhh755 AN ION GAP 10 06/08/2016 Comp Metabolic Xqq199 GL UCOSE 127 mg/dL 06/08/2016 Comp Metabolic Nks577 Cr eat 1.0 mg/dL 06/08/2016 Comp Metabolic Fnm219 eG FR 59 ml/min/1.73m2 06/08 Comp Metabolic Hqo142 BUN 19 mg/dL 06/08/2016 Comp Metabolic Klm086 B/ C Ratio 19.4 Ratio 06/08/2016 Comp Metabolic Ecp935 CA LCIUM 9.2 mg/dL 06/08/2016 Comp Metabolic Mko584 AL K PHOS 77 U/L 06/08/2016 Comp Metabolic Bjx372 T(SGOT) 19 U/L 06/08/2016 Comp Metabolic Mht442 AL T(SGPT) 13 U/L 06/08/2016 Comp Metabolic Yob984 BI LI T 0.5 mg/dL 06/08/2016 Comp Metabolic Iep519 AL BUMIN 3.8 g/dL 06/08/2016 Comp Metabolic Ebb440 TP RO 6.6 g/dL 06/08/2016 Comp Metabolic Uqz662 GL OB 2.8 g/dL 06/08/2016 Comp Metabolic Gcc732 A/ G Ratio 1.4 Ratio 06/08/2016 Comp Metabolic Mfo780 Os mo 280 mOsmo 06/08/2016 Pt Vml8994 PT 36.1 seconds 06/08/2016 Pt Dae4418 INR 3.9 06/08/2016 Pt Knc5403 Low Intensity - 1.5-2.0 06/08/2016 Pt Gch2951 Mod intensity - 2.0-3.0 06/08/2016 Pt Zwi1375 Hi intensity - 3.0-4.0 06/08/2016 Lipid Ord30 CHOL 149 mg/dL 06/08/2016 Lipid Ord30 HDL 46.0 mg/dl 06/08/2016 Lipid Ord30 TRIG 279 mg/dL 06/08/2016 Lipid Ord30 LDL 47 mg/dL 06/08/2016 Lipid Ord30 C/HDL 3.2 Ratio 06/08/2016 Pt Isk5367 PT 30.9 seconds 02/12/2016 Pt Qqu9735 INR 3.2 02/12/2016 Pt Wmj0317 Low Intensity - 1.5-2.0 02/12/2016 Pt Cek2246 Mod intensity - 2.0-3.0 02/12/2016 Pt Xpk8472 Hi intensity - 3.0-4.0 02/12/2016 Free T4 Lwj302 FREE T4 1.24 ng/dL 09/27/2015 %Hba1C Lyl826 % HbA1c 46940-6 6.4 % 09/27/2015 %Hba1C Ukz585 Gluc Ave 137 mg/dL 09/27/2015 Tsh Ord6 hTSH II 0.37 uIU/mL 09/27/2015 Pt Oad8754 PT 26.2 seconds 09/27/2015 Pt Jmr4427 INR 2.5 09/27/2015 Pt Vpm0809 Low Intensity - 1.5-2.0 09/27/2015 Pt Gnd8910 Mod intensity - 2.0-3.0 09/27/2015 Pt Cfp1674 Hi intensity - 3.0-4.0 09/27/2015 Pt Qpf5304 PT 27.6 seconds 2015 Pt Fpl0384 INR 2.7 2015 Pt Llk9008 Low Intensity - 1.5-2.0 2015 Pt Cie3316 Mod intensity - 2.0-3.0 2015 Pt Qei8295 Hi intensity - 3.0-4.0 2015 %Hba1C Nyk822 % HbA1c 37188-1 6.1 % 06/11/2015 %Hba1C Jtu246 Gluc Ave 128 mg/dL 06/11/2015 Cbc With [...] Ord2 RDW 15.8 % 06/10/2015 Comp Metabolic Lfb511 NA 139 mEq/L 06/10/2015 Comp Metabolic Kqa484 K 4.1 mEq/L 06/10/2015 Comp Metabolic Ocl970 CL 105 mEq/L 06/10/2015 Comp Metabolic Ovy739 CO2 27.0 mEq/L 06/10/2015 Comp Metabolic Euz272 AN ION GAP 11 06/10/2015 Comp Metabolic Eee668 GL UCOSE 127 mg/dL 06/10/2015 Comp Metabolic Bus467 Cr eat 1.0 mg/dL 06/10/2015 Comp Metabolic Jiv947 eG FR 59 ml/min/1.73m2 06/10 Comp Metabolic Kdv688 BUN 21 mg/dL 06/10/2015 Comp Metabolic Gxw136 B/ C Ratio 21.2 Ratio 06/10/2015 Comp Metabolic Eox039 CA LCIUM 9.2 mg/dL 06/10/2015 Comp Metabolic Qkd249 AL K PHOS 87 U/L 06/10/2015 Comp Metabolic Aor199 T(SGOT) 20 U/L 06/10/2015 Comp Metabolic Blq811 AL T(SGPT) 17 U/L 06/10/2015 Comp Metabolic Gju724 BI LI T 0.4 mg/dL 06/10/2015 Comp Metabolic Qmf441 AL BUMIN 4.1 g/dL 06/10/2015 Comp Metabolic Pyu607 TP RO 7.2 g/dL 06/10/2015 Comp Metabolic Dha557 GL OB 3.1 g/dL 06/10/2015 Comp Metabolic Uxm305 A/ G Ratio 1.3 Ratio 06/10/2015 Comp Metabolic Cih205 Os mo 282 mOsmo 06/10/2015 Tsh Ord6 hTSH II 0.86 uIU/mL 06/10/2015 Lipid Ord30 CHOL 161 mg/dL 06/10/2015 Lipid Ord30 HDL 49.0 mg/dl 06/10/2015 Lipid Ord30 TRIG 208 mg/dL 06/10/2015 Lipid Ord30 LDL 70 mg/dL 06/10/2015 Lipid Ord30 C/HDL 3.3 Ratio 06/10/2015 Pt Sbr8937 PT 25.0 seconds 04/09/2015 Pt Qxo3180 INR 2.4 04/09/2015 Pt Aoa0335 Low Intensity - 1.5-2.0 04/09/2015 Pt Oue1363 Mod intensity - 2.0-3.0 04/09/2015 Pt Noz5834 Hi intensity - 3.0-4.0 04/09/2015 Free T4 Gch088 FREE T4 1.05 ng/dL 01/22/2015 Pt Lwg6745 PT 27.2 seconds 01/22/2015 Pt Yaq8970 INR 2.6 01/22/2015 Pt Szr5270 Low Intensity - 1.5-2.0 01/22/2015 Pt Kti6405 Mod intensity - 2.0-3.0 01/22/2015 Pt Lwf6901 Hi intensity - 3.0-4.0 01/22/2015 Cbc With [...] Differential Ord2 RDW 15.2 % 01/22/2015 B12 Vwb162 B12 402.00 pg/ml 01/22/2015 Tsh Ord6 hTSH II 0.65 uIU/mL 01/22/2015 Lipid Ord30 CHOL 166 mg/dL 01/22/2015 Lipid Ord30 HDL 48.0 mg/dl 01/22/2015 Lipid Ord30 TRIG 264 mg/dL 01/22/2015 Lipid Ord30 LDL 65 mg/dL 01/22/2015 Lipid Ord30 C/HDL 3.5 Ratio 01/22/2015 Comp Metabolic Wqa912 NA 138 mEq/L 01/22/2015 Comp Metabolic Gdk991 K 4.1 mEq/L 01/22/2015 Comp Metabolic Zwl227 CL 104 mEq/L 01/22/2015 Comp Metabolic Lsx706 CO2 29.0 mEq/L 01/22/2015 Comp Metabolic Vyk928 AN ION GAP 9 01/22/2015 Comp Metabolic Iew455 GL UCOSE 106 mg/dL 01/22/2015 Comp Metabolic Jpf743 Cr eat 0.9 mg/dL 01/22/2015 Comp Metabolic Igi538 eG FR 63 ml/min/1.73m2 01/22 Comp Metabolic Djj586 BUN 21 mg/dL 01/22/2015 Comp Metabolic Rgd504 B/ C Ratio 22.3 Ratio 01/22/2015 Comp Metabolic Hbb514 CA LCIUM 9.4 mg/dL 01/22/2015 Comp Metabolic Xdj766 AL K PHOS 83 U/L 01/22/2015 Comp Metabolic Avb348 T(SGOT) 23 U/L 01/22/2015 Comp Metabolic Shb837 AL T(SGPT) 18 U/L 01/22/2015 Comp Metabolic Alv418 BI LI T 0.8 mg/dL 01/22/2015 Comp Metabolic Dra208 AL BUMIN 4.2 g/dL 01/22/2015 Comp Metabolic Xbv494 TP RO 7.3 g/dL 01/22/2015 Comp Metabolic Pgj834 GL OB 3.1 g/dL 01/22/2015 Comp Metabolic Huk350 A/ G Ratio 1.4 Ratio 01/22/2015 Comp Metabolic Tqp292 Os mo 279 mOsmo 01/22/2015 Review of [...] benign 06/10/2015 None Full Exam - General 1995 Ears/Nose/Throat oral cavity/pharynx/larynx Overall: no masses 06/10/2015 [...] Date URINALYSIS NONAUTO W /O SCOPE CPT-4: 66309 03/05/2017 Vital Signs Date Vital 04/14/2018 Blood Pressure 1: 116/78 Code: 8480-6 BMI: 41.6 Code: 82927-2 Heart Rate 1: 72 bpm Height: 5'1" SpO2: 98% Weight: 220 lbs 01/18/2018 Blood Pressure 1: 132/74 Code: 8480-6 BMI: 43.5 Code: 38320-8 Heart Rate 1: 70 bpm Height: 5'1" SpO2: 97% Weight: 230 lbs 01/04/2018 Blood Pressure 1: 134/76 Code: 8480-6 BMI: 42.7 Code: 75417-6 Heart Rate 1: 83 bpm Height: 5'1" SpO2: 98% Weight: 226 lbs 09/23/2017 Blood Pressure 1: 124/76 Code: 8480-6 BMI: 42.3 Code: 80377-5 Heart Rate 1: 94 bpm Height: 5'1" SpO2: 96% Weight: 224 lbs 05/27/2017 Blood Pressure 1: 146/78 Code: 8480-6 BMI: 41.4 Code: 12471-3 Heart Rate 1: 85 bpm Height: 5'1" SpO2: 98% Weight: 219 lbs 02/24/2017 Blood Pressure 1: 138/66 Code: 8480-6 BMI: 41.4 Code: 89156-3 Heart Rate 1: 78 bpm Height: 5'1" SpO2: 97% Weight: 219 lbs 11/02/2016 Blood Pressure 1: 144/72 Code: 8480-6 BMI: 46.1 Code: 14275-7 Heart Rate 1: 78 bpm Height: 5'1" SpO2: 98% Weight: 244 lbs 09/30/2016 Blood Pressure 1: 130/76 Code: 8480-6 BMI: 45.0 Code: 45731-8 Heart Rate 1: 86 bpm Height: 5'1" SpO2: 98% Weight: 238 lbs 09/10/2016 Blood Pressure 1: 136/68 Code: 8480-6 BMI: 46.3 Code: 45842-5 Heart Rate 1: 83 bpm Height: 5'1" SpO2: 98% Weight: 245 lbs 08/20/2016 Blood Pressure 1: 142/78 Code: 8480-6 BMI: 45.3 Code: 46430-8 Heart Rate 1: 84 bpm Height: 5'1" SpO2: 99% Weight: 240 lbs 06/08/2016 Blood Pressure 1: 134/76 Code: 8480-6 BMI: 44.2 Code: 24547-7 Heart Rate 1: 86 bpm Height: 5'1" SpO2: 96% Weight: 234 lbs 04/02/2016 Blood Pressure 1: 142/70 Code: 8480-6 BMI: 44.6 Code: 63687-3 Heart Rate 1: 78 bpm Height: 5'1" SpO2: 97% Weight: 236 lbs 01/14/2016 Blood Pressure 1: 146/72 Code: 8480-6 BMI: 44.2 Code: 87885-6 Heart Rate 1: 86 bpm Height: 5'1" SpO2: 96% Weight: 234 lbs 10/02/2015 Blood Pressure 1: 158/76 Code: 8480-6 BMI: 44.2 Code: 80025-5 Heart Rate 1: 67 bpm Height: 5'1" SpO2: 97% Weight: 234 lbs 07/15/2015 Blood Pressure 1: 200/90 Code: 8480-6 Blood Pressure 1: 148/78 Code: 8480-6 BMI: 44.0 Code: 20912-5 Heart Rate 1: 89 bpm Height: 5'1" SpO2: 97% Weight: 233 lbs 06/10/2015 Blood Pressure 1: 140/82 Code: 8480-6 BMI: 44.0 Code: 16666-9 Heart Rate 1: 78 bpm Height: 5'1" SpO2: 93% Weight: 233 lbs 01/22/2015 Blood Pressure 1: 136/64 Code: 8480-6 Heart Rate 1: 82 bpm Height: SpO2: 98% Weight: 225 lbs Functional Status No Functional Status data History of Present Illness Symptom Name Status Resu lt Effective Date Notes hypertension Quality kenji gabe hypertension 04/14/2018 None [...] Encounters Encounter Performer Loca tion Codes Date ([id number]) [id number] EST. 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 P ATIENT, LEVEL III Diagnosis: Localized edema[ICD10: R60.0] Diagnosis: Gastro-esophageal reflux disease without esophagitis[ICD10: K21.9] Edna Almanza MD, [facility] CPT-4: 72059 01/18/2018 ([id number]) 20623 EST. P ATIENT, LEVEL IV Diagnosis: Gastro-esophageal reflux disease without esophagitis[ICD10: K21.9] Diagnosis: Localized edema[ICD10: R60.0] Diagnosis: Essential (primary) hypertension[ICD10: I10] Diagnosis: Hypothyroidism, unspecified[ICD10: E03.9] Diagnosis: Impaired fasting glucose[ICD10: R73.01] Edna Almanza MD, [facility] CPT-4: 49395 01/04/2018 ([id number]) 53442 EST. 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 PATIENT, LEVEL III Diagnosis: Pain in right hip[ICD10: M25.551] Nata Almanza MD, [facility] CPT-4: 99505 02/24/2017 ([id number]) 67712 EST. P ATIENT, LEVEL IV Diagnosis: Essential (primary) hypertension[ICD10: I10] Diagnosis: Localized edema[ICD10: R60.0] Diagnosis: Pain in right hip[ICD10: M25.551] Sarai Almanza MD, [facility] CPT-4: 03951 11/02/2016 ([id number]) 26716 EST. P ATIENT, LEVEL IV Diagnosis: Essential (primary) hypertension[ICD10: I10] Diagnosis: Localized edema[ICD10: R60.0] Sarai Almanza MD, [facility] CPT-4: 64906 09/30/2016 51292 EST. PATIENT, LEVEL IV Diagnosis: Localized edema[ICD10: R60.0] Diagnosis: Pain in joints of left hand[ICD10: M25.542] Diagnosis: Pain in joints of right hand[ICD10: M25.541] Nata Almanza MD, [facility] CPT-4: 10766 09/10/2016 75576 EST. PATIENT, LEVEL IV Diagnosis: Localized edema[ICD10: R60.0] Diagnosis: Pain in joints of left hand[ICD10: M25.542] Diagnosis: Pain in joints of right hand[ICD10: M25.541] Diagnosis: Other fatigue[ICD10: R53.83] Nata Almanza MD, [facility] CPT-4: 04339 08/20/2016 71699 EST. PATIENT, LEVEL IV Diagnosis: Essential (primary) hypertension[ICD10: I10] Diagnosis: Other assisted (current) drug therapy[ICD10: Z79.899] Diagnosis: Tinnitus, bilateral[ICD10: H93.13] Nata Almanza MD, [facility] CPT-4: 93058 06/08/2016 80098 EST. PATIENT, LEVEL IV Diagnosis: Other allergic rhinitis[ICD10: J30.89] Diagnosis: Acute laryngopharyngitis[ICD10: J06.0] Nata Almanza MD, [facility] CPT-4: 17198 04/02/2016 00283 EST. PATIENT, LEVEL IV Diagnosis: Left upper quadrant pain[ICD10: R10.12] Nata Almanza MD, [facility] CPT-4: 10699 01/14/2016 72916 EST. PATIENT, LEVEL IV Diagnosis: Pain in left shoulder[ICD10: M25.512] Diagnosis: Body mass index (BMI) 40.0-44.9, adult[ICD10: Z68.41] [facility] CPT-4: 68108 10/02/2015 97198 EST. PATIENT, LEVEL IV Diagnosis: Pain in left leg[ICD10: M79.605] Diagnosis: Other terminal gauger (current) drug therapy[ICD10: Z79.899] [facility] CPT-4: 94299 07/15/2015 ([id number]) 97420 EST. 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: Other terminal gauger (current) drug therapy[ICD10: Z79.899] [facility] CPT-4: 42288 06/10/2015 ([id number]) OFFICE VISI T, NEW - LEVEL 4 Diagnosis: ESSENTIAL HYPERTENSION[ICD9: 401.9] Diagnosis: HYPOTHYROIDISM[ICD9: 244.9] Diagnosis: ENCNTR LONG-RX USE NEC[ICD9: V58.69] Diagnosis: HYPERLIPIDEMIA[ICD9: 272.4] Diagnosis: Vitamin B12 deficiency[ICD9: 266.2] Diagnosis: Status post gastric surgery[ICD9: V45.89] Diagnosis: Snoring[ICD9: 786.09] [facility] CPT-4: 09956 01/22/2015 Plan of Care Planned Activity Notes C odes Status Date Visit Plan: Hypertension - well con trolled [...] Hgb A1C 04/14/2018 Appointment: Edna Douglas WPtel: [phone] (15 min) Moderate 04/14/2018 Patient [...] to further attempt to reduce peripheral edema. DKTH-[id number]-uahowpgs prilosec BID and carafate QID -discussed low spice, low acidic diet 01/18/2018 Appointment: Edna Douglas WPtel: [phone] [phone] (15 min) Moderate 01/18/2018 Patient Education: Patient [...] control. 01/04/2018 Appointment: Edna Douglas WPtel: [phone] [phone] (30 min) Complex 01/04/2018 Patient Education: Patient Medication Summary Completed 01/04/2018 Care Plan: SCREENINGMAMMOGRAPHYDIGITAL LOINC : 10441-3 Pending 01/04/2018 Visit Plan: Abdominal hernia - not able to be taken to surgery by local providers and pt has been seen at [facility] and that surgeon felt like [place] would be better served by Dr. Betancur [...] home. 09/23/2017 Appointment: [phone] ([facility] min) Moderate 09/23/2017 Patient [...] medications. 05/27/2017 App[facility]ment: [phone] [place] (30 min) Complex 05/27/2017 Patient [...] [place]. 02/24/2017 Appointment: Nata Hsu WPtel: [phone] [place] (30 min) Complex 02/24/2017 Patient [...] [place]. 11/02/2016 Appointment: Sarai Almanza WPtel: [phone] [facility] (15 min) Moderate 11/02/2016 Patient Education: Patient [...] Almanza WPtel: [facility] [place][note 2]6 [facility] (15 min) Moderate 09/30/2016 Patient Education: [...] peripheral edema. 09/10/2016 Appointment: Nata Hsu WPtel: [phone] [facility] (30 min) Complex 09/10/2016 Patient Education: Patient [...] edema. 08/20/2016 Appointment: Nata Hsu WPtel: [phone] [facility]66[facility] (30 min) Complex 08/20/2016 Patient Education: Patient Medication Summary Completed 08/20/2016 Referral: Rosa [address] Referral Initiated 07/02/2016 Visit Plan: Chronic [...] 06/08/2016 Care Plan: Referral Order SNOMED-CT : [id number] Pending 06/08/2016 Visit Plan: URI - Pt [...] 04/02/2016 Appointment: Nata Hsu WPtel: [phone] [facility] (30 min) Complex 04/02/2016 Patient Education: Patient [...] Douglas WPtel: [facility] [place][note 2]5 [phone] (30 min) Complex 01/14/2016 Patient Education: Patient Medication Summary Completed 01/14/2016 Patient Education: Obesity Completed 01/14/2016 Care Plan: BMI Above normal followup DAVID F-MGMT EDUC & TRAIN 1 PT Pending 10/24/2015 Care Plan: X-RAY EXAM OF SHOULDER [facility] : 46115-3 Pending 10/24/2015 Visit Plan: Left shoulder pain [...] Douglas WPtel: [facility] [place][note 2]2 [facility] (15 min) Moderate 10/02/2015 Patient Education: [...] ses Completed 06/10/2015 Appointment: Sarai Almanza WPtel: [facility] [place]note 2]5 [facility] (15 min) Moderate 04/22/2015 Visit [...] have surgical fixation - planning occurring at [facility]. Snoring - Sleep apnea symptoms with [...] to medications. 01/22/2015 Appointment: Sarai Almanza WPtel: [address] [place], [place] [address] [place] (S) New Patient 01/22/2015 Patient Education: Patient Medication Summary Completed 01/22/2015 Patient Education: Hypertension Completed 01/22/2015 [facility] Referral Initiated Instructions Comment . Chronic Anticoagul [...] and pt has been seen at [facility] and that surgeon felt like [place] would be better served by Dr. Betancur [...] to further attempt to reduce peripheral edema. PTKC-wpqvyzar-bgrcvhpl prilosec BID and carafate QID -discussed low [...] blood sugars-check Hgb A1C dr almanza will eusebio e the staff [...] have surgical fixation - planning occurring at [facility]. Snoring - Sleep apnea symptoms with [...]
--- OUTSIDE RECORDS SUMMARY | 2020-01-16 23:24 | XMS REPORT | CCD ---
Author Author Kat Almanza Organization Sarai Almanza MD, 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 Name Role Phone PP Unavailable CCM Unavailable Summary Purpose Interface Exchange Insurance Providers Payer name Policy type / Coverage type Covered alliance party ID Effective Begin Date Effective End Date WPS Medicare Part B Medicare Part B [id number] 2017 Unknown [employer] [place] Medicare Part B [id number] 2017 Unknown Family history Father Diagnosis Age At Onset Hyperlipidemia Unknown Heart Attack Unknown Mother Diagnosis Age At Onset Arthritis Unknown Social History Social History Element Codes Description Effective Dates Marital status Unknown M arried Nathan 09/30/2016 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 Number of children Unknown 3 01/22/[address]: 689628588 Never smoker 01/22/[address]: 615325449 Never drinks alcohol 01/22/2015 Allergies, Adverse Reactions, Alerts Substance Reaction Codes Entered Date Inactivated Date Status * NO KNOWN DRUG ORIN RGIES Unknown 01/22/2015 No Inactive Date Active Past Medical History Illness Codes Condition Status Onset Date Resolved Date Essential (primary) hypertension ICD-9: 401.9 ICD-10: I10 Active 06/07/2016 Unknown Hypothyroidism, unsp ecified ICD-9: 244.9 ICD-10: E03.9 Active 05/27/2017 Unknown Impaired fasting glu cose ICD-9: 790.21 ICD-10: R73.01 Active 05/27/2017 Unknown FPC (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 ICD-9: V58.61 ICD-10: Z79.01 Active 05/27/2017 Unknown Gastro-esophageal re flux disease [...] 780.79 ICD-10: R53.83 Active 08/20/2016 Unknown Other rn long term care (cur rent) drug therapy ICD-9: V58.69 [...] hypertension ICD-9: 401.9 ICD-10: I10 06/07/2016 Active Hypothyroidism, unsp ecified ICD-9: 244.9 ICD-10: E03.9 05/27/2017 Active Impaired fasting glu cose ICD-9: 790.21 ICD-10: R73.01 05/27/2017 Active rn long term care (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 ICD-9: V58.61 ICD-10: Z79.01 05/27/2017 Active Gastro-esophageal re flux disease without [...] ICD-9: 780.79 ICD-10: R53.83 08/20/2016 Active Other rn long term care (cur rent) drug therapy ICD-9: V58.69 [...] Date Stop Date Sta tus Fill Instructions Lipitor 40 mg tablet RxNorm: 994271 TAKE ONE TABLET BY MOUTH DAILY 07/29/2018 07/23/2019 Ac tive Coumadin 1 mg tablet RxNorm: 732928 TAKE ONE TABLET BY MOUTH DAILY 07/29/2018 10/26/2018 Ac tive Carafate 1 gram tablet RxNorm: 610702 TAKE ONE TABLET BY MOUTH BEFORE MEALS AN D AT BEDTIME 07/28/2018 09/17/2018 Active Coumadin 4 mg tablet RxNorm: 496197 2 Tablet(s) daily 07/11/2018 02/05/2019 Active Generi c For:COUMADIN 4MG 07/22/2017 8:58:26 AM Coumadin 5 mg tablet RxNorm: 136352 Tablet(s) TAKE 1 TABLET BY MOUTH DIRE CTED 07/08/2018 01/03/2019 Ac tive Generic For:COUMADIN 5MG TAB 03/21/2018 9:13:00 AM Coumadin 1 mg tablet RxNorm: 779146 1 Tablet(s) PO daily 07/08/2018 08/06/2018 Active Coumadin 4 mg tablet RxNorm: 167658 Tablet(s) TAKE 1 TABLET BY MOUTH THREE T IMES PER WEEK (WEDNESDAY, WEDNESDAY AND WEDNESDAY) 07/08/2018 07/10/2018 Inactive Gene andre For:COUMADIN 4MG 07/22/2017 8:58:26 AM venlafaxine ER 75 mg capsule,extended release 24 hr RxNorm: 238411 Capsule(s) TAKE 1 CAPSULE BY MOUTH ONCE DAILY 06/23/2018 06/17/2019 Active Generic For:*EFFEXOR XR 75MG 06/19/2017 12:23:45 PM sodium bicarbonate 6 50 mg tablet RxNorm: 708952 Tablet(s) TAKE 2 TABL ETS BY MOUTH TWICE DAILY 06/23/2018 12/19/2018 Active 12/20/2017 9:10:59 AM Coumadin 1 mg tablet RxNorm: 252332 1 Tablet(s) PO daily 06/17/2018 07/07/2018 Inactive Coumadin 1 mg tablet RxNorm: 114405 1 Tablet(s) PO daily 06/17/2018 06/16/2018 Inactive clonazepam 0.5 mg ta blet RxNorm: 997670 1 Tablet(s) PO BID 06/08/2018 11/04/2018 Active Synthroid 137 mcg ta blet RxNorm: 374405 TAKE 1 TABLET BY MOUT H ONCE DAILY 05/18/2018 11/13/2018 Ac tive Generic For:SYNTHROID 137MCG TAB 2017 8:57:54 AM spironolactone 25 mg tablet RxNorm: 938071 TAKE 1 TABLET BY MOUT H EVERY DAY 05/18/2018 05/12/2019 Ac tive Generic For:*ALDACTONE 25MG 05/18/2018 8:57:50 AM Carafate 1 gram tablet RxNorm: 526499 TAKE ONE TABLET BY MOUTH BEFORE MEALS AN D AT BEDTIME 05/18/2018 07/12/2018 Inactive Generic For:CARAFATE 1GM 1 07/18/2017 8:38:28 AM allopurinol 300 mg t ablet RxNorm: 717169 TAKE 1 TABLET BY MOUT H ONCE DAILY. 04/18/2018 10/14/2018 Ac tive Generic For:ZYLOPRIM 300 MG TABLET 03/22 9:13:47 AM Lasix 20 mg tablet RxNorm: 539224 TAKE ONE TABLET BY MOUTH DAILY 04/18/2018 08/15/2018 Ac tive Generic For:LASIX 20MG 04/18/2018 9:13: 50 AM Carafate 1 gram tablet RxNorm: 122987 TAKE ONE TABLET BY MOUTH BEFORE MEALS AN D AT BEDTIME 04/18/2018 05/17/2018 Inactive Generic For:CARAFATE 1GM 1 9:32:51 AM Coumadin 5 mg tablet RxNorm: 532914 TAKE 1 TABLET BY MOUTH DIRECTED 03/21/2018 07/07/2018 In active Generic For:COUMADIN 5MG TAB 03/21/2018 9:13:00 AM Carafate 1 gram tablet RxNorm: 538595 TAKE ONE TABLET BY MOUTH BEFORE MEALS AN D AT BEDTIME 03/21/2018 04/17/2018 Inactive Generic For:CARAFATE 1GM 1 9:14:24 AM Carafate 1 gram tablet RxNorm: 179012 1 Tablet(s) PO AC & HS 02/17/2018 03/20/2018 Inactive atenolol 100 mg tablet RxNorm: 712197 1 Tablet(s) PO daily 02/04/2018 09/01/2018 Active atenolol 50 mg tablet RxNorm: 684527 1 Tablet(s) PO daily 02/03/2018 02/03/2018 Inactive omeprazole 20 mg cap sean,delayed release RxNorm: 789089 1 Capsule(s) BID 01/21/2018 01/15/2019 Ac tive Generic For:PRILOSEC 20MG 07/22/2017 8:5 8:20 AM Carafate 1 gram tablet RxNorm: 075699 1 Tablet(s) PO AC & HS 01/21/2018 02/16/2018 Inactive Carafate 1 gram tablet RxNorm: 669161 1 Tablet(s) PO AC & HS 01/18/2018 01/20/2018 Inactive Carafate 1 gram tablet RxNorm: 177148 1 Tablet(s) PO AC & HS 01/18/2018 02/27/2018 Inactive Carafate 1 gram tablet RxNorm: 959812 1 Tablet(s) PO AC & HS TAKE ONE TABLET B Y MOUTH TWICE DAILY 01/18/2018 05/17/2018 Inactive Generic For:CARAFATE 1GM 0 12/20/2017 9:10:56 AM omeprazole 20 mg cap sean,delayed release RxNorm: 388945 Capsule(s) TAKE 1 CAP SEAN BY MOUTH EVERY DAY 01/17/2018 01/20/2018 Inactive Generic For:PRILOSEC 20MG 0 07/22/2017 8:58:20 AM omeprazole 20 mg cap sean,delayed release RxNorm: 682694 Capsule(s) TAKE 1 CAP SEAN BY MOUTH EVERY DAY 01/14/2018 01/16/2018 Inactive Generic For:PRILOSEC 20MG 07/22/2017 8:58:20 AM Plavix 75 mg tablet RxNorm: 863316 1 Tablet(s) PO daily 01/07/2018 07/05/2018 Inactive clonazepam 0.5 mg ta blet RxNorm: 391922 1 Tablet(s) PO BID 01/07/2018 06/05/2018 Inactive Carafate 1 gram tablet RxNorm: 425920 1 Tablet(s) PO AC & HS 01/04/2018 01/17/2018 Inactive Lasix 20 mg tablet RxNorm: 429918 TAKE ONE TABLET BY MOUTH DAILY 12/20/2017 04/17/2018 In active Generic For:LASIX 20MG 12/20/2017 9:11: 03 AM sodium bicarbonate 6 50 mg tablet RxNorm: 447179 TAKE 2 TABLETS BY JAVON TH TWICE DAILY 12/20/2017 06/17/2018 In active 12/20/2017 9:10:59 AM Carafate 1 gram tablet RxNorm: 891627 TAKE ONE TABLET BY MOUTH TWICE DAILY 12/20/2017 01/17/2018 In active Generic For:CARAFATE 1GM 12/20/2017 9:1 0:56 AM Synthroid 137 mcg ta blet RxNorm: 764834 TAKE 1 TABLET BY MOUT H ONCE DAILY 11/19/2017 05/17/2018 In active Generic For:SYNTHROID 137MCG TAB 2017 8:58:04 AM Detrol LA 4 mg capsu le,extended release RxNorm: 710958 TAKE 1 CAPSULE BY JAVON TH ONCE DAILY 10/20/2017 04/13/2018 Inactive Generic For:DETROL LA 4MG C AP 10/20/2017 9:01:56 AM allopurinol 300 mg t ablet RxNorm: 430674 TAKE 1 TABLET BY MOUT H ONCE DAILY. 10/20/2017 04/17/2018 In active Generic For:ZYLOPRIM 300 MG TABLET 07/2017 9:01:59 AM Coumadin 5 mg tablet RxNorm: 699286 1 Tablet(s) PO UD 10/01/2017 03/20/2018 Inactive cyclobenzaprine 5 mg tablet RxNorm: 714172 1 Tablet(s) PO TID as needed myscle spasm 09/23/2017 10/12/2017 Inactive Lipitor 40 mg tablet RxNorm: 358851 TAKE 1 TABLET BY MOUTH ONCE DAILY 09/20/2017 07/28/2018 In active Generic For:LIPITOR 40MG 09/20/2017 8:5 6:04 AM atenolol 100 mg tablet RxNorm: 465093 1 Tablet(s) PO daily 08/30/2017 02/03/2018 Inactive atenolol 50 mg tablet RxNorm: 968181 1 Tablet(s) PO daily 08/30/2017 08/30/2017 Inactive Lovenox 30 mg/0.3 mL subcutaneous syringe RxNorm: 285504 0.3 Milliliter(s) SQ Q12H 08/24/2017 09/06/2017 In active Lasix 20 mg tablet RxNorm: 114999 TAKE ONE TABLET BY MOUTH DAILY 08/23/2017 12/19/2017 In active Generic For:LASIX 20MG 08/21/2017 9:04: 27 AM Synthroid 137 mcg ta blet RxNorm: 433209 TAKE 1 TABLET BY MOUT H ONCE DAILY 08/23/2017 11/18/2017 In active Generic For:SYNTHROID 137MCG TAB 2017 9:04:30 AM Lovenox 30 mg/0.3 mL subcutaneous syringe RxNorm: 044751 0.3 Milliliter(s) SQ Q12H 08/10/2017 08/23/2017 In active clonazepam 0.5 mg ta blet RxNorm: 923168 1 Tablet(s) PO BID 08/04/2017 12/30/2017 Inactive Coumadin 4 mg tablet RxNorm: 316754 TAKE 1 TABLET BY MOUTH THREE TIMES PER W SALAMATOF (WEDNESDAY, WEDNESDAY AND WEDNESDAY) 07/22/2017 02/16/2018 Inactive Generic For:COUMADIN 4MG 07/22/2017 8:58:26 AM omeprazole 20 mg cap sean,delayed release RxNorm: 350016 TAKE 1 CAPSULE BY JAVON TH EVERY DAY 07/22/2017 01/13/2018 Inactive Generic For:PRILOSEC 20MG 07/22/2017 8: 58:20 AM Coumadin 4 mg tablet RxNorm: 017114 TAKE 1 TABLET BY MOUTH THREE TIMES PER W SALAMATOF (WEDNESDAY, WEDNESDAY AND WEDNESDAY) 07/22/2017 02/16/2018 Inactive Generic For:COUMADIN 4MG 07/22/2017 8:58:26 AM sodium bicarbonate 6 50 mg tablet RxNorm: 482853 TAKE 2 TABLETS BY JAVON TH TWICE DAILY 06/22/2017 12/18/2017 In active 06/19/2017 12:23:30 PM venlafaxine ER 75 mg capsule,extended release 24 hr RxNorm: 202943 TAKE 1 CAPSULE BY MOUTH ONCE DAILY 06/22/2017 06/16/2018 Inactive Generic For:*EFFEXOR XR 75M G 06/19/2017 12:23:45 PM Coumadin 5 mg tablet RxNorm: 525002 1 Tablet(s) PO UD 06/01/2017 09/30/2017 Inactive Keflex 500 mg capsule RxNorm: 846469 1 Capsule(s) PO TID 05/27/2017 06/02/2017 Inactive Synthroid 137 mcg ta blet RxNorm: 705404 TAKE 1 TABLET BY MOUT H ONCE DAILY 05/24/2017 08/21/2017 In active Generic For:SYNTHROID 137MCG TAB 2016 8:55:59 AM Carafate 1 gram tablet RxNorm: 341272 TAKE ONE TABLET BY MOUTH TWICE DAILY 05/24/2017 12/19/2017 In active Generic For:CARAFATE 1GM 05/24/2017 8:5 5:54 AM spironolactone 25 mg tablet RxNorm: 450155 1 Tablet(s) PO daily 05/24/2017 05/17/2018 Inactive Detrol LA 4 mg capsu le,extended release RxNorm: 913724 1 Capsule(s) PO daily TAKE 1 CAPSULE BY MOUTH ONCE DAILY 05/10/2017 10/19/2017 Inactive Generic For:DETROL LA 4MG CAP 02/19/2017 2:36:00 PM Lasix 20 mg tablet RxNorm: 285617 TAKE ONE TABLET BY MOUTH DAILY 04/23/2017 08/20/2017 In active Generic For:LASIX 20MG 04/23/2017 9:04: 01 AM Coumadin 4 mg tablet RxNorm: 153375 TAKE 1 TABLET BY MOUTH THREE TIMES PER W SALAMATOF (WEDNESDAY, WEDNESDAY AND WEDNESDAY) 04/23/2017 07/21/2017 Inactive Generic For:COUMADIN 4MG 04/23/2017 9:04:05 AM allopurinol 300 mg t ablet RxNorm: 121975 TAKE 1 TABLET BY MOUT H ONCE DAILY. 04/23/2017 10/19/2017 In active Generic For:ZYLOPRIM 300 MG TABLET 08/2016 9:03:57 AM potassium chloride 2 0 mEq/15 mL oral liquid RxNorm: 684509 Milliliter(s) 30 Milliliter(s) (40mEq) PO daily 03/24/2017 07/21/2017 Inactive Lovenox 30 mg/0.3 mL subcutaneous syringe RxNorm: 874174 0.3 Milliliter(s) SQ Q12H 03/22/2017 03/26/2017 In active Lovenox 30 mg/0.3 mL subcutaneous syringe RxNorm: 144719 0.3 Milliliter(s) SQ Q12H 03/19/2017 03/20/2017 In active Lovenox 30 mg/0.3 mL subcutaneous syringe RxNorm: 556279 0.3 Milliliter(s) SQ Q12H 03/16/2017 03/18/2017 In active clonazepam 0.5 mg ta blet RxNorm: 590069 1 Tablet(s) PO BID 03/02/2017 07/28/2017 Inactive Lovenox 30 mg/0.3 mL subcutaneous syringe RxNorm: 621035 1 injection SQ BID do NOT take the night time dose the day before surgery, or the morning dose the day of surgery 03/01/2017 03/07/2017 Inactive Lovenox 30 mg/0.3 mL subcutaneous syringe RxNorm: 601733 1 injection SQ BID 03/01/2017 02/28/2017 In active Detrol LA 4 mg capsu le,extended release RxNorm: 203344 TAKE 1 CAPSULE BY JAVON TH ONCE DAILY 02/19/2017 05/09/2017 Inactive Generic For:DETROL LA 4MG C AP 02/19/2017 2:36:00 PM hydrocodone 5 mg-humberto taminophen 325 mg tablet RxNorm: 591157 1-2 Tablet(s) PO Q6 P RN 02/04/2017 No Stop Date Active Zetia 10 mg tablet RxNorm: 199308 TAKE 1 TABLET BY MOUTH DAILY 01/25/2017 04/13/2018 Inactive 01/23/2017 9:03:48 AM omeprazole 20 mg cap sean,delayed release RxNorm: 200802 TAKE 1 CAPSULE BY JAVON TH EVERY DAY 01/25/2017 07/21/2017 Inactive Generic For:PRILOSEC 20MG 01/23/2017 9: 03:45 AM Coumadin 4 mg tablet RxNorm: 447102 TAKE 1 TABLET BY MOUTH THREE TIMES PER W SALAMATOF (WEDNESDAY, WEDNESDAY AND WEDNESDAY) 01/25/2017 04/22/2017 Inactive Generic For:COUMADIN 4MG 01/23/2017 9:03:51 AM sodium bicarbonate 6 50 mg tablet RxNorm: 020056 TAKE 2 TABLETS BY JAVON TH TWICE DAILY 12/24/2016 06/21/2017 In active 12/24/2016 9:09:27 AM Lasix 20 mg tablet RxNorm: 821343 1 Tablet(s) PO daily 12/24/2016 04/22/2017 Inactive Synthroid 137 mcg ta blet RxNorm: 422477 TAKE 1 TABLET BY MOUT H ONCE DAILY 11/24/2016 05/22/2017 In active Generic For:SYNTHROID 137MCG TAB 2016 9:04:37 AM Coumadin 4 mg tablet RxNorm: 648095 TAKE 1 TABLET BY MOUTH THREE TIMES PER W SALAMATOF (WEDNESDAY, WEDNESDAY AND WEDNESDAY) 11/24/2016 01/22/2017 Inactive Generic For:COUMADIN 4MG 11/24/2016 9:04:41 AM hydrocodone 5 mg-humberto taminophen 325 mg tablet RxNorm: 922982 1-2 Tablet(s) PO Q6 P RN 11/17/2016 02/03/2017 In active Carafate 1 gram tablet RxNorm: 314683 TAKE ONE TABLET BY MOUTH TWICE DAILY 10/27/2016 05/23/2017 In active Generic For:CARAFATE 1GM 10/26/2016 8:3 9:42 AM allopurinol 300 mg t ablet RxNorm: 260148 Tablet(s) TAKE 1 TABL ET BY MOUTH ONCE DAILY. 10/26/2016 04/22/2017 Inactive Lipitor 40 mg tablet RxNorm: 387887 1 Tablet(s) PO daily 09/25/2016 09/19/2017 Inactive Coumadin 4 mg tablet RxNorm: 770183 TAKE 1 TABLET BY MOUTH THREE TIMES PER W SALAMATOF (WEDNESDAY, WEDNESDAY AND WEDNESDAY) 09/25/2016 11/23/2016 Inactive Generic For:COUMADIN 4MG 09/25/2016 8:55:58 AM Zetia 10 mg tablet RxNorm: 097699 1 Tablet(s) PO daily 09/25/2016 01/22/2017 Inactive gave 1 month of samples clonazepam 0.5 mg ta blet RxNorm: 306865 1 Tablet(s) PO BID 09/21/2016 02/16/2017 Inactive Lasix 20 mg tablet RxNorm: 739790 1 Tablet(s) PO daily 09/15/2016 12/23/2016 Inactive potassium chloride 2 0 mEq/15 mL oral liquid RxNorm: 680790 Milliliter(s) 30 Milliliter(s) (40mEq) PO daily 09/15/2016 01/12/2017 Inactive Lasix 20 mg tablet RxNorm: 287325 2 Tablet(s) PO daily 09/10/2016 09/12/2016 Inactive Lasix 20 mg tablet RxNorm: 682413 1 Tablet(s) PO daily 08/28/2016 08/30/2016 Inactive Lasix 20 mg tablet RxNorm: 792034 1 Tablet(s) PO daily 08/20/2016 08/22/2016 Inactive Detrol LA 4 mg capsu le,extended release RxNorm: 856404 TAKE 1 CAPSULE BY JAVON ONCE DAILY 07/27/2016 02/18/2017 Inactive Generic For:DETROL LA 4MG C AP 07/27/2016 9:08:27 AM Coumadin 4 mg tablet RxNorm: 180338 1 Tablet(s) PO 3 x week wed and sun 07/27/2016 09/24/2016 In active omeprazole 20 mg cap sean,delayed release RxNorm: 880568 Capsule(s) PO TAKE 1 CAPSULE BY MOUTH ONCE DAILY 07/27/2016 01/22/2017 Inactive venlafaxine ER 75 mg capsule,extended release 24 hr RxNorm: 688173 1 Capsule(s) PO daily 06/29/2016 06/21/2017 Inactive sodium bicarbonate 6 50 mg tablet RxNorm: 805665 TAKE 2 TABLETS BY JAVON TWICE DAILY 06/29/2016 12/23/2016 In active 06/27/2016 9:05:39 AM Coumadin 4 mg tablet RxNorm: 229107 1 Tablet(s) PO 3 x week e th and sun 06/09/2016 06/08/2016 In active Coumadin 4 mg tablet RxNorm: 381387 1 Tablet(s) PO 3 x week e thur and sun 06/09/2016 07/26/2016 In active Zetia 10 mg tablet RxNorm: 168447 1 Tablet(s) PO daily 06/09/2016 06/08/2016 Inactive gave 1 month of samples Zetia 10 mg tablet RxNorm: 625393 1 Tablet(s) PO daily 06/09/2016 09/24/2016 Inactive gave 1 month of samples Effexor 75 mg tablet RxNorm: 566117 1 Tablet(s) PO daily 06/08/2016 06/28/2016 Inactive spironolactone 25 mg tablet RxNorm: 005992 1 Tablet(s) PO daily 06/08/2016 05/23/2017 Inactive Synthroid 137 mcg ta blet RxNorm: 238841 1 Tablet(s) PO daily 05/07/2016 11/02/2016 Inactive allopurinol 300 mg t ablet RxNorm: 733045 Tablet(s) TAKE 1 TABL ET BY MOUTH ONCE DAILY. 04/28/2016 10/24/2016 Inactive clonazepam 0.5 mg ta blet RxNorm: 086644 1 Tablet(s) PO BID 04/20/2016 09/15/2016 Inactive Flonase Allergy Reli ef 50 mcg/actuation nasal spray,suspension RxNorm: 9161876 1 [place] NASAL BID 04/02/2016 No Stop Date Active Zithromax Z-Thomas 250 mg tablet RxNorm: 696723 Tablet(s) PO 04/02/2016 08/27/2016 Inactive cetirizine 10 mg tablet RxNorm: 4564389 1 Tablet(s) PO daily 04/02/2016 05/01/2016 Inactive Carafate 1 gram tablet RxNorm: 557668 Tablet(s) TAKE 1 TABLET TWICE A DAY FOR 30 DAYS 03/30/2016 10/25/2016 Inactive Generic For:CARAFATE 1GM 02/08/2015 12:3 6:39 PM Plavix 75 mg tablet RxNorm: 672917 1 Tablet(s) PO daily 03/11/2016 09/06/2016 Inactive sodium bicarbonate 6 50 mg tablet RxNorm: 007155 Tablet(s) 2 Tablet(s) PO BID 02/28/2016 06/26/2016 In active omeprazole 20 mg cap sean,delayed release RxNorm: 040983 Capsule(s) PO TAKE 1 CAPSULE BY MOUTH ONCE DAILY 01/31/2016 07/26/2016 Inactive Fish Oil 1,000 mg ca psule RxNorm: 1 Capsule(s) PO BID 01/14/2016 No Stop Date Active Synthroid 137 mcg ta blet RxNorm: 945069 1 Tablet(s) PO daily 01/14/2016 05/06/2016 Inactive Detrol LA 4 mg capsu le,extended release RxNorm: 397599 TAKE 1 CAPSULE BY JAVON TH ONCE DAILY 12/30/2015 07/26/2016 Inactive Generic For:DETROL LA 4MG C AP 12/30/2015 9:11:01 AM potassium chloride 2 0 mEq/15 mL oral liquid RxNorm: 002392 Milliliter(s) 30 Milliliter(s) (40mEq) PO daily 12/02/2015 03/30/2016 Inactive sodium bicarbonate 6 50 mg tablet RxNorm: 275556 Tablet(s) 2 Tablet(s) PO BID 10/31/2015 02/27/2016 In active Lipitor 40 mg tablet RxNorm: 726477 1 Tablet(s) PO daily 10/09/2015 09/24/2016 Inactive sodium bicarbonate 6 50 mg tablet RxNorm: 796815 2 Tablet(s) PO BID 10/01/2015 10/30/2015 Inactive allopurinol 300 mg t ablet RxNorm: 377049 TAKE 1 TABLET BY MOUT H ONCE DAILY. 10/01/2015 04/27/2016 In active Generic For:ZYLOPRIM 300 MG TABLET 09/19 9:21:15 AM clonazepam 0.5 mg ta blet RxNorm: 933037 1 Tablet(s) PO BID 09/30/2015 04/19/2016 Inactive Coumadin 5 mg tablet RxNorm: 697269 1 Tablet(s) PO daily 09/27/2015 05/31/2017 Inactive Generic For:COUMADIN 5MG TAB N O T I C E PRESCRIPTION PREVIOUSLY AUTHORIZED BY DOCTOR:BBOBY ZULETA Synthroid 125 mcg ta blet RxNorm: 115533 1 Tablet(s) PO daily 09/27/2015 09/26/2015 Inactive Synthroid 125 mcg ta blet RxNorm: 024008 1 Tablet(s) PO daily 09/27/2015 01/13/2016 Inactive Carafate 1 gram tablet RxNorm: 433823 Tablet(s) TAKE 1 TABLET TWICE A DAY FOR 30 DAYS 09/02/2015 03/29/2016 Inactive Generic For:CARAFATE 1GM 02/08/2015 12:3 6:39 PM sodium bicarbonate 6 50 mg tablet RxNorm: 116336 2 Tablet(s) PO BID 09/02/2015 09/30/2015 Inactive Prilosec 20 mg capsu le,delayed release RxNorm: 170171 TAKE 1 CAPSULE BY JAVON TH ONCE DAILY 08/02/2015 01/28/2016 Inactive Generic For:PRILOSEC 20MG 08/02/2015 10:03:09 AM N O T I C E PRESCRIPTION PREVIOUSLY AUTHORIZED BY DOCTOR:BOBBY ZULETA Zyrtec 10 mg capsule RxNorm: 1662990 1 Capsule(s) PO daily 07/15/2015 08/13/2015 Inactive Keflex 500 mg capsule RxNorm: 191335 1 Capsule(s) PO TID 07/15/2015 07/21/2015 Inactive cetirizine 10 mg cap sean RxNorm: 3800101 1 Capsule(s) PO daily 07/15/2015 08/13/2015 Inactive hydrocodone 5 mg-humberto taminophen 325 mg tablet RxNorm: 401560 1-2 Tablet(s) PO Q6 P RN 06/10/2015 11/16/2016 In active sodium bicarbonate 6 50 mg tablet RxNorm: 899660 2 Tablet(s) PO BID 06/03/2015 08/31/2015 Inactive Detrol LA 4 mg capsu le,extended release RxNorm: 152457 TAKE 1 CAPSULE BY JAVON TH ONCE DAILY 06/03/2015 12/29/2015 Inactive Generic For:DETROL LA 4MG C AP N O T I C E PRESCRIPTION PREVIOUSLY AUTHORIZED BY DOCTOR:BOBBY ZULETA atenolol 50 mg tablet RxNorm: 512247 1 Tablet(s) PO daily TAKE 1 TABLET BY MO MAH DAILY 05/07/2015 08/23/2017 Inactive Generic For:TENORMIN 50MG 05/04/2015 9:07:22 AM spironolactone 25 mg tablet RxNorm: 794952 1 Tablet(s) PO daily 05/06/2015 06/07/2016 Inactive venlafaxine ER 75 mg capsule,extended release 24 hr RxNorm: 384478 1 Capsule(s) PO daily 05/04/2015 06/28/2016 Inactive atenolol 50 mg tablet RxNorm: 684756 TAKE 1 TABLET BY MOUTH DAILY 05/04/2015 05/06/2015 Inactive Generic For:TENORMIN 50MG 05/04/2015 9: 07:22 AM Synthroid 150 mcg ta blet RxNorm: 973294 TAKE 1 TABLET BY MOUT H ONCE DAILY. 04/05/2015 09/26/2015 In active Generic For:SYNTHROID 150MCG TAB 2014 4:45:40 PM N O T I C E PRESCRIPTION PREVIOUSLY AUTHORIZED BY DOCTOR:BOBBY ZULETA Effexor 75 mg tablet RxNorm: 512746 1 Tablet(s) PO daily 04/05/2015 07/03/2015 Inactive Coumadin 5 mg tablet RxNorm: 682742 TAKE 1 AND 1/2 TABLETS BY MOUTH ONCE MYRANDA LY 04/04/2015 09/26/2015 In active Generic For:COUMADIN 5MG TAB N O T I C E PRESCRIPTION PREVIOUSLY AUTHORIZED BY DOCTOR:BOBBY ZULETA clonazepam 0.5 mg ta blet RxNorm: 247830 1 Tablet(s) PO BID 03/13/2015 11/05/2015 Inactive sodium bicarbonate 6 50 mg tablet RxNorm: 306713 2 Tablet(s) PO BID 03/08/2015 06/02/2015 Inactive allopurinol 300 mg t ablet RxNorm: 943001 TAKE 1 TABLET BY MOUT H ONCE DAILY. 03/05/2015 09/30/2015 In active N O T I C E PRESCRIPTION PREVIOUSLY A UTHORIZED BY DOCTOR:BOBBY ZULETA Plavix 75 mg tablet RxNorm: 080674 1 Tablet(s) PO daily 02/12/2015 09/09/2015 Inactive clonazepam 0.5 mg ta blet RxNorm: 531104 1 Tablet(s) PO BID 02/11/2015 03/11/2015 Inactive Carafate 1 gram tablet RxNorm: 947878 TAKE 1 TABLET TWICE A DAY FOR 30 DAYS 02/08/2015 02/07/2015 In active Generic For:CARAFATE 1GM 02/08/2015 12:3 6:39 PM Carafate 1 gram tablet RxNorm: 909817 Tablet(s) TAKE 1 TABLET TWICE A DAY FOR 30 DAYS 02/08/2015 09/01/2015 Inactive Generic For:CARAFATE 1GM 02/08/2015 12:3 6:39 PM potassium chloride 2 0 mEq/15 mL oral liquid RxNorm: 362097 30 Milliliter(s) (40m Eq) PO daily 02/05/2015 12/01/2015 Inactive atenolol 50 mg tablet RxNorm: 885918 1 Tablet(s) PO daily 02/04/2015 05/03/2015 Inactive [SAVINGS FOR NON-COVERED DRUGS -- BIN: 3585, PCN: [email or web address], Group: XXXXX, ID# XXXXXXX, Questions: . THIS IS NOT INSURANCE.] potassium chloride 2 0 mEq/15 mL oral liquid RxNorm: 607338 30 Milliliter(s) (40m Eq) PO daily 01/08/2015 02/04/2015 Inactive potassium chloride 2 0 mEq/15 mL oral liquid RxNorm: 685270 30 Milliliter(s) (40m Eq) PO daily 12/07/2014 01/07/2015 Inactive atenolol 50 mg tablet RxNorm: 059358 1 Tablet(s) PO daily 11/09/2014 11/08/2014 Inactive atenolol 50 mg tablet RxNorm: 710869 1 Tablet(s) PO daily 11/09/2014 02/03/2015 Inactive [SAVINGS FOR NON-COVERED DRUGS -- BIN:[id number], PCN: [id number], Group: XXXXX, ID# [id number], Questions: . THIS IS NOT INSURANCE.] Voltaren 1 % topical gel RxNorm: 266629 TOP No St art Date Active verapamil ER (HS) 24 0 mg tablet,extended release 24 hr RxNorm: 609528 1 Tablet(s) PO daily No Start Date Active aspirin 81 mg tablet RxNorm: 766417 1 Tablet(s) PO daily No Start Date Active Zofran 4 mg tablet RxNorm: 847078 1 Tablet(s) PO PRN No Start Date Active B12 1000 mcg RxNorm: 1 Tablet(s) PO daily No Start Date Active magnesium oxide 400 mg capsule RxNorm: 081577 2 Capsule(s) PO BID No Start Date Active Synthroid 150 mcg ta blet RxNorm: 966708 1 Tablet(s) PO daily No Start Date 04/04/2015 Inactive Coumadin 5 mg tablet RxNorm: 694807 1 Tablet(s) PO daily No Start Date 04/03/2015 Inactive cranberry 1,000 mg c apsule RxNorm: 182865 1 Capsule(s) PO daily No Start Date 04/13/2018 Inactive allopurinol 300 mg t ablet RxNorm: 841128 1 Tablet(s) PO daily No Start Date 03/04/2015 Inactive Prilosec 20 mg capsu le,delayed release RxNorm: 055588 1 Capsule(s) PO PRN No Start Date 08/01/2015 Inactive potassium chloride 2 0 mEq/15 mL oral liquid RxNorm: 638954 30 Milliliter(s) (40m Eq) PO daily No Start Date 12/06/2014 Inactive atenolol 50 mg tablet RxNorm: 433589 1 Tablet(s) PO daily No Start Date 08/29/2017 Inactive Lipitor 40 mg tablet RxNorm: 746389 1 Tablet(s) PO daily No Start Date 09/19/2017 Inactive Effexor 75 mg tablet RxNorm: 109724 1 Tablet(s) PO daily No Start Date 04/04/2015 Inactive Carafate 1 gram tablet RxNorm: 143715 1 Tablet(s) PO BID No Start Date 02/07/2015 Inactive clonazepam 0.5 mg ta blet RxNorm: 386338 1 Tablet(s) PO BID No Start Date 02/10/2015 Inactive Plavix 75 mg tablet RxNorm: 818271 1 Tablet(s) PO daily No Start Date 02/11/2015 Inactive sodium bicarbonate 6 50 mg tablet RxNorm: 501380 2 Tablet(s) PO BID No Start Date 09/01/2015 Inactive Lovenox 30 mg/0.3 mL subcutaneous syringe RxNorm: 752959 0.3 Milliliter(s) SQ Q12H No Start Date 03/15/2017 Inactive Fish Oil 1,000 mg ca psule RxNorm: 1 Capsule(s) PO daily No Start Date 01/13/2016 Inactive Detrol LA 4 mg capsu le,extended release RxNorm: 909134 1 Capsule(s) PO daily No Start Date 06/02/2015 Inactive Medication Administered No Medication Administered data Immunizations Vaccine Codes Date Status SHINGARIX CVX: 121 03/23 completed Assessments Condition Codes Effectiv e Dates Hypothyroidism, unspecified ICD-10: E03.9 ICD-9: 244.9 04/14/2018 Essential (primary) hypertension ICD -10: I10 ICD-9: 401.9 04/14/2018 rn long term care (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 ICD-10: Z79.01 ICD-9: [...] fatigue ICD-10: R53.83 ICD-9: 780.79 08/20/2016 Other rn long term care (current) drug therapy ICD-10: Z79.899 ICD-9: [...] Code Item Item Code Result Date Pt [id number] PT 29.2 seconds 08/05/2018 Pt Qru6688 INR 2.8 08/05/2018 Pt Dah1914 Low Intensity - 1.5-2.0 08/05/2018 Pt Fsf7422 Mod intensity - 2.0-3.0 08/05/2018 Pt Wzx4052 Hi intensity - 3.0-4.0 08/05/2018 Pt Qsr4319 PT 30.2 seconds 07/25/2018 Pt Ape1931 INR 2.9 07/25/2018 Pt Zps1152 Low Intensity - 1.5-2.0 07/25/2018 Pt Dja3337 Mod intensity - 2.0-3.0 07/25/2018 Pt Dzk5204 Hi intensity - 3.0-4.0 07/25/2018 Pt Dxe9590 PT 25.2 seconds 07/19/2018 Pt Xoh5368 INR 2.3 07/19/2018 Pt Fwi1093 Low Intensity - 1.5-2.0 07/19/2018 Pt Jzl3568 Mod intensity - 2.0-3.0 07/19/2018 Pt Hil0180 Hi intensity - 3.0-4.0 07/19/2018 Pt Vui5559 PT 17.4 seconds 07/15/2018 Pt Nbv4265 INR 1.5 07/15/2018 Pt Frk8733 Low Intensity - 1.5-2.0 07/15/2018 Pt Gfl0903 Mod intensity - 2.0-3.0 07/15/2018 Pt Rbd9274 Hi intensity - 3.0-4.0 07/15/2018 Pt Qrl9242 PT 17.8 seconds 07/08/2018 Pt Itw1861 INR 1.5 07/08/2018 Pt Zkg6625 Low Intensity - 1.5-2.0 07/08/2018 Pt Une7699 Mod intensity - 2.0-3.0 07/08/2018 Pt Xxb3817 Hi intensity - 3.0-4.0 07/08/2018 Pt Hoy3689 PT 19.2 seconds 07/01/2018 Pt Enj2456 INR 1.7 07/01/2018 Pt Spd2821 Low Intensity - 1.5-2.0 07/01/2018 Pt Lee5264 Mod intensity - 2.0-3.0 07/01/2018 Pt Fyw4252 Hi intensity - 3.0-4.0 07/01/2018 Pt Gtf9327 PT 17.4 seconds 06/23/2018 Pt Vit6787 INR 1.5 06/23/2018 Pt Buc2463 Low Intensity - 1.5-2.0 06/23/2018 Pt Yxe3093 Mod intensity - 2.0-3.0 06/23/2018 Pt Ern8096 Hi intensity - 3.0-4.0 06/23/2018 Pt Lav1530 PT 18.4 seconds 06/17/2018 Pt Xeu8604 INR 1.6 06/17/2018 Pt Vua4074 Low Intensity - 1.5-2.0 06/17/2018 Pt Wzk0682 Mod intensity - 2.0-3.0 06/17/2018 Pt Dpi5723 Hi intensity - 3.0-4.0 06/17/2018 Sed Rate [...] 30.4 pg 06/08/2018 Cbc With Differential Ord2 [place]% 9.4 % 06/08/2018 Cbc With Differential Ord2 [...] 1.20 K/ul 06/08/2018 Cbc With Differential Ord2 [place] ABS# 0.5 K/ul 06/08/2018 Cbc With Differential Ord2 Eos ABS# 0.1 K/ul 06/08/2018 Cbc With Differential Ord2 Baso ABS# 0.1 K/ul 06/08/2018 C-Reactive Protein Qnt Crqnt CRP 0.1 mg/dl 06/08/2018 Pt Qam8099 PT 17.6 seconds 06/08/2018 Pt Ojp5053 INR 1.5 06/08/2018 Pt Vwd3015 Low Intensity - 1.5-2.0 06/08/2018 Pt Clr5226 Mod intensity - 2.0-3.0 06/08/2018 Pt Itn3419 Hi intensity - 3.0-4.0 06/08/2018 Pt Eap2623 PT 16.8 seconds 05/10/2018 Pt Prk2939 INR 1.4 05/10/2018 Pt Yfb8019 Low Intensity - 1.5-2.0 05/10/2018 Pt Ohd5747 Mod intensity - 2.0-3.0 05/10/2018 Pt Kux1336 Hi intensity - 3.0-4.0 05/10/2018 Pt Zqz5208 PT 16.7 seconds 05/04/2018 Pt Pow2222 INR 1.4 05/04/2018 Pt Uxg2771 Low Intensity - 1.5-2.0 05/04/2018 Pt Vtz0233 Mod intensity - 2.0-3.0 05/04/2018 Pt Nup0307 Hi intensity - 3.0-4.0 05/04/2018 Free T4 Vcv217 FREE T4 1.09 ng/dL 04/14/2018 Tsh Ord6 TSH (3rd IS) 2.36 uIU/mL 04/14/2018 Pt Maz4895 PT 20.3 seconds 04/14/2018 Pt Cjy4655 INR 1.8 04/14/2018 Pt Dtz5599 Low Intensity - 1.5-2.0 04/14/2018 Pt Acn9447 Mod intensity - 2.0-3.0 04/14/2018 Pt Mhm8808 Hi intensity - 3.0-4.0 04/14/2018 Lipid Ord30 CHOL 149 mg/dL 04/14/2018 Lipid Ord30 HDL 49.0 mg/dl 04/14/2018 Lipid Ord30 TRIG 161 mg/dL 04/14/2018 Lipid Ord30 LDL 68 mg/dL 04/14/2018 Lipid Ord30 C/HDL 3.0 Ratio 04/14/2018 %Hba1C Umj094 % HbA1c 40047-4 5.9 % 04/14/2018 %Hba1C Pfk794 Gluc Ave 123 mg/dL 04/14/2018 Comp Metabolic Gsq423 NA 140 mEq/L 04/14/2018 Comp Metabolic Bpi094 K 4.1 mEq/L 04/14/2018 Comp Metabolic Ipy263 CL 105 mEq/L 04/14/2018 Comp Metabolic Buq117 CO2 28.0 mEq/L 04/14/2018 Comp Metabolic Kij434 AN ION GAP 11 04/14/2018 Comp Metabolic Chv895 GL UCOSE 112 mg/dL 04/14/2018 Comp Metabolic Zke946 Cr eat 1.0 mg/dL 04/14/2018 Comp Metabolic Xyx718 eG FR 58 ml/min/1.73m2 04/14 Comp Metabolic Jzf354 BUN 20 mg/dL 04/14/2018 Comp Metabolic Kmu964 B/ C Ratio 20.2 Ratio 04/14/2018 Comp Metabolic Gkf068 CA LCIUM 10.0 mg/dL 04/14/2018 Comp Metabolic Ogm753 AL K PHOS 51 U/L 04/14/2018 Comp Metabolic Zen265 T(SGOT) 24 U/L 04/14/2018 Comp Metabolic Gai686 AL T(SGPT) 21 U/L 04/14/2018 Comp Metabolic Ahe016 BI LI T 0.8 mg/dL 04/14/2018 Comp Metabolic Ull911 AL BUMIN 4.2 g/dL 04/14/2018 Comp Metabolic Nar511 TP RO 7.1 g/dL 04/14/2018 Comp Metabolic Pkc000 GL OB 2.9 g/dL 04/14/2018 Comp Metabolic Hfx491 A/ G Ratio 1.5 Ratio 04/14/2018 Comp Metabolic Inh439 Os mo 283 mOsmo 04/14/2018 Cbc With [...] 90.3 fl 04/14/2018 Cbc With Differential Ord2 MCH 30.7 pg 04/14/2018 Cbc With Differential Ord2 [place]% 10.6 % 04/14/2018 Cbc With Differential Ord2 Eos% 3.1 % 04/14/2018 Cbc With Differential Ord2 MCHC 33.9 pg 04/14/2018 Cbc With Differential Ord2 Baso% 1.2 % 04/14/2018 Cbc With Differential Ord2 PLT 189 K/ul 04/14/2018 Cbc With Differential Ord2 Neut ABS# 2.93 K/ul 04/14/2018 Cbc With Differential Ord2 RDW 14.6 % 04/14/2018 Cbc With Differential Ord2 Lymph ABS# 1.18 K/ul 04/14/2018 Cbc With Differential Ord2 [place] ABS# 0.5 K/ul 04/14/2018 Cbc With Differential Ord2 Eos ABS# 0.2 K/ul 04/14/2018 Cbc With Differential Ord2 Baso ABS# 0.1 K/ul 04/14/2018 Pt Dcq5053 PT 29.3 seconds 02/11/2018 Pt Huy8337 INR 2.8 02/11/2018 Pt Uyt9507 Low Intensity - 1.5-2.0 02/11/2018 Pt Ucu5312 Mod intensity - 2.0-3.0 02/11/2018 Pt Syt7486 Hi intensity - 3.0-4.0 02/11/2018 Comp Metabolic Bjl576 NA 141 mEq/L 01/05/2018 Comp Metabolic Bpz642 K 3.7 mEq/L 01/05/2018 Comp Metabolic Agb157 CL 102 mEq/L 01/05/2018 Comp Metabolic Jsb513 CO2 29.0 mEq/L 01/05/2018 Comp Metabolic Ieo252 AN ION GAP 14 01/05/2018 Comp Metabolic Iqi086 GL UCOSE 136 mg/dL 01/05/2018 Comp Metabolic Cdt401 Cr eat 1.0 mg/dL 01/05/2018 Comp Metabolic Cnn490 eG FR 61 ml/min/1.73m2 01/05 Comp Metabolic Ysr812 BUN 22 mg/dL 01/05/2018 Comp Metabolic Qap435 B/ C Ratio 22.9 Ratio 01/05/2018 Comp Metabolic Pri387 CA LCIUM 9.7 mg/dL 01/05/2018 Comp Metabolic Oyf231 AL K PHOS 57 U/L 01/05/2018 Comp Metabolic Leo030 T(SGOT) 21 U/L 01/05/2018 Comp Metabolic Yin536 AL T(SGPT) 19 U/L 01/05/2018 Comp Metabolic Ocx175 BI LI T 0.9 mg/dL 01/05/2018 Comp Metabolic Tbc815 AL BUMIN 4.1 g/dL 01/05/2018 Comp Metabolic Ljd741 TP RO 7.1 g/dL 01/05/2018 Comp Metabolic Wxv369 GL OB 3.0 g/dL 01/05/2018 Comp Metabolic Znu314 A/ G Ratio 1.4 Ratio 01/05/2018 Comp Metabolic Wim824 Os mo 287 mOsmo 01/05/2018 Free T4 Nai448 FREE T4 1.05 ng/dL 01/05/2018 %Hba1C Eca059 % HbA1c 79632-5 6.0 % 01/05/2018 %Hba1C Xvg696 Gluc Ave 126 mg/dL 01/05/2018 Cbc With [...] 27.3 % 01/05/2018 Cbc With Differential Ord2 [place]% 10.5 % 01/05/2018 Cbc With Differential Ord2 MCH 30.6 pg 01/05/2018 Cbc With Differential Ord2 Eos% 3.6 % 01/05/2018 Cbc With Differential Ord2 MCHC 33.6 pg 01/05/2018 Cbc With Differential Ord2 PLT 177 K/ul 01/05/2018 Cbc With Differential Ord2 Baso% 1.9 % 01/05/2018 Cbc With Differential Ord2 Neut ABS# 2.64 K/ul 01/05/2018 Cbc With Differential Ord2 RDW 14.5 % 01/05/2018 Cbc With Differential Ord2 Lymph ABS# 1.27 K/ul 01/05/2018 Cbc With Differential Ord2 [place] ABS# 0.5 K/ul 01/05/2018 Cbc With Differential Ord2 Eos ABS# 0.2 K/ul 01/05/2018 Cbc With Differential Ord2 Baso ABS# 0.1 K/ul 01/05/2018 Pt Rgw3065 PT 20.7 seconds 01/05/2018 Pt Dlq9300 INR 1.8 01/05/2018 Pt Nws9267 Low Intensity - 1.5-2.0 01/05/2018 Pt Gwm0326 Mod intensity - 2.0-3.0 01/05/2018 Pt Usv4049 Hi intensity - 3.0-4.0 01/05/2018 Tsh Ord6 TSH (3rd IS) 2.34 uIU/mL 01/05/2018 Lipid Ord30 CHOL 156 mg/dL 01/05/2018 Lipid Ord30 HDL 48.0 mg/dl 01/05/2018 Lipid Ord30 TRIG 207 mg/dL 01/05/2018 Lipid Ord30 LDL 67 mg/dL 01/05/2018 Lipid Ord30 C/HDL 3.3 Ratio 01/05/2018 Pt Ozd6970 PT 28.3 seconds 11/26/2017 Pt Nqv5254 INR 2.6 11/26/2017 Pt Dil1673 Low Intensity - 1.5-2.0 11/26/2017 Pt Gsa9219 Mod intensity - 2.0-3.0 11/26/2017 Pt Bim1194 Hi intensity - 3.0-4.0 11/26/2017 Pt Jxp1060 PT 36.5 seconds 11/19/2017 Pt Gkm9819 INR 3.6 11/19/2017 Pt Hzj3718 Low Intensity - 1.5-2.0 11/19/2017 Pt Qro2399 Mod intensity - 2.0-3.0 11/19/2017 Pt Qwv9319 Hi intensity - 3.0-4.0 11/19/2017 Pt Ugu4266 PT 22.9 seconds 10/15/2017 Pt Voq5474 INR 2.0 10/15/2017 Pt Zti7574 Low Intensity - 1.5-2.0 10/15/2017 Pt Gcm9748 Mod intensity - 2.0-3.0 10/15/2017 Pt Zpc1917 Hi intensity - 3.0-4.0 10/15/2017 Pt Tzc1271 PT 25.9 seconds 10/01/2017 Pt Ggo6639 INR 2.4 10/01/2017 Pt Pvw2314 Low Intensity - 1.5-2.0 10/01/2017 Pt Djd0533 Mod intensity - 2.0-3.0 10/01/2017 Pt Gqy2757 Hi intensity - 3.0-4.0 10/01/2017 Pt Aqx8223 PT 20.6 seconds 09/24/2017 Pt Dyt0252 INR 1.8 09/24/2017 Pt Qkk4128 Low Intensity - 1.5-2.0 09/24/2017 Pt Blg3685 Mod intensity - 2.0-3.0 09/24/2017 Pt Siv4360 Hi intensity - 3.0-4.0 09/24/2017 Pt Cqi0205 PT 21.0 seconds 09/15/2017 Pt Wvj7863 INR 1.8 09/15/2017 Pt Tey6344 Low Intensity - 1.5-2.0 09/15/2017 Pt Tcm7896 Mod intensity - 2.0-3.0 09/15/2017 Pt Nge9028 Hi intensity - 3.0-4.0 09/15/2017 Pt Vdt5666 PT 19.0 seconds 09/03/2017 Pt Odn5465 INR 1.6 09/03/2017 Pt Xmo8414 Low Intensity - 1.5-2.0 09/03/2017 Pt Swg4472 Mod intensity - 2.0-3.0 09/03/2017 Pt Low5704 Hi intensity - 3.0-4.0 09/03/2017 Pt Feh4249 PT 17.6 seconds 08/23/2017 Pt Saw8323 INR 1.5 08/23/2017 Pt Gry8998 Low Intensity - 1.5-2.0 08/23/2017 Pt Chq8342 Mod intensity - 2.0-3.0 08/23/2017 Pt Jms6093 Hi intensity - 3.0-4.0 08/23/2017 Pt Qlc8145 PT 12.7 seconds 08/20/2017 Pt Qoi9445 INR 1.0 08/20/2017 Pt Tfz2931 Low Intensity - 1.5-2.0 08/20/2017 Pt Xpl0958 Mod intensity - 2.0-3.0 08/20/2017 Pt Wwm3142 Hi intensity - 3.0-4.0 08/20/2017 Pt Njq2263 PT 12.9 seconds 08/17/2017 Pt Qhn9593 INR 1.0 08/17/2017 Pt Hcv8919 Low Intensity - 1.5-2.0 08/17/2017 Pt Zaq0607 Mod intensity - 2.0-3.0 08/17/2017 Pt Xvi7801 Hi intensity - 3.0-4.0 08/17/2017 Pt Nbk5714 PT 18.5 seconds 08/10/2017 Pt Bxl0004 INR 1.6 08/10/2017 Pt Rnf2305 Low Intensity - 1.5-2.0 08/10/2017 Pt Kxb7366 Mod intensity - 2.0-3.0 08/10/2017 Pt Wyz3525 Hi intensity - 3.0-4.0 08/10/2017 Tsh Ord6 hTSH II 2.08 uIU/mL 05/27/2017 Cbc With Differential Ord2 WBC 7.53 K/ul 05/27/2017 Cbc With Differential Ord2 RBC 4.60 M/ul 05/27/2017 Cbc With Differential Ord2 HGB 13.5 g/dl 05/27/2017 Cbc With Differential Ord2 Neut% 72.9 % 05/27/2017 Cbc With Differential Ord2 HCT 40.4 % 05/27/2017 Cbc With Differential Ord2 MCV 87.8 fl 05/27/2017 Cbc With Differential Ord2 Lymph% 14.7 % 05/27/2017 Cbc With Differential Ord2 [place]% 8.1 % 05/27/2017 Cbc With Differential Ord2 MCH 29.3 pg 05/27/2017 Cbc With Differential Ord2 MCHC 33.4 pg 05/27/2017 Cbc With Differential Ord2 Eos% 3.2 % 05/27/2017 Cbc With Differential Ord2 PLT 239 K/ul 05/27/2017 Cbc With Differential Ord2 Baso% 1.1 % 05/27/2017 Cbc With Differential Ord2 Neut ABS# 5.49 K/ul 05/27/2017 Cbc With Differential Ord2 RDW 14.4 % 05/27/2017 Cbc With Differential Ord2 Lymph ABS# 1.11 K/ul 05/27/2017 Cbc With Differential Ord2 [place] ABS# 0.6 K/ul 05/27/2017 Cbc With Differential Ord2 Eos ABS# 0.2 K/ul 05/27/2017 Cbc With Differential Ord2 Baso ABS# 0.1 K/ul 05/27/2017 Pt Qha7610 PT 28.2 seconds 05/27/2017 Pt Kwq9970 INR 2.6 05/27/2017 Pt Rsx3176 Low Intensity - 1.5-2.0 05/27/2017 Pt Jbp7186 Mod intensity - 2.0-3.0 05/27/2017 Pt Lcw5897 Hi intensity - 3.0-4.0 05/27/2017 Lipid Ord30 CHOL 167 mg/dL 05/27/2017 Lipid Ord30 HDL 49.0 mg/dl 05/27/2017 Lipid Ord30 TRIG 347 mg/dL 05/27/2017 Lipid Ord30 LDL 49 mg/dL 05/27/2017 Lipid Ord30 C/HDL 3.4 Ratio 05/27/2017 Magnesium Ord90 Mag 1.4 mg/dL 05/27/2017 %Hba1C Xdd485 % HbA1c 80694-3 5.9 % 05/27/2017 %Hba1C Scg173 Gluc Ave 123 mg/dL 05/27/2017 Comp Metabolic Dnl544 NA 138 mEq/L 05/27/2017 Comp Metabolic Enf195 K 4.1 mEq/L 05/27/2017 Comp Metabolic Pvr760 CL 101 mEq/L 05/27/2017 Comp Metabolic Gmo992 CO2 31.0 mEq/L 05/27/2017 Comp Metabolic Eng673 AN ION GAP 10 05/27/2017 Comp Metabolic Gqu575 GL UCOSE 117 mg/dL 05/27/2017 Comp Metabolic Lnz636 Cr eat 0.9 mg/dL 05/27/2017 Comp Metabolic Kiz867 eG FR 62 ml/min/1.73m2 05/27 Comp Metabolic Lnk096 BUN 25 mg/dL 05/27/2017 Comp Metabolic Ypy493 B/ C Ratio 26.6 Ratio 05/27/2017 Comp Metabolic Ewo882 CA LCIUM 9.5 mg/dL 05/27/2017 Comp Metabolic Pqx253 AL K PHOS 73 U/L 05/27/2017 Comp Metabolic Rzp500 T(SGOT) 18 U/L 05/27/2017 Comp Metabolic Bnz998 AL T(SGPT) 12 U/L 05/27/2017 Comp Metabolic Zpc997 BI LI T 0.5 mg/dL 05/27/2017 Comp Metabolic Uca494 AL BUMIN 4.1 g/dL 05/27/2017 Comp Metabolic Gxr878 TP RO 7.1 g/dL 05/27/2017 Comp Metabolic Vrn179 GL OB 3.0 g/dL 05/27/2017 Comp Metabolic Zzn146 A/ G Ratio 1.3 Ratio 05/27/2017 Comp Metabolic Qxz978 Os mo 281 mOsmo 05/27/2017 Free T4 Rlq184 FREE T4 0.91 ng/dL 05/27/2017 Pt Wgb0109 PT 29.2 seconds 04/16/2017 Pt Rsf2786 INR 2.7 04/16/2017 Pt Lyy8407 Low Intensity - 1.5-2.0 04/16/2017 Pt Boj9872 Mod intensity - 2.0-3.0 04/16/2017 Pt Zoj8052 Hi intensity - 3.0-4.0 04/16/2017 Pt Iyo8107 PT 30.7 seconds 03/31/2017 Pt Xvl8644 INR 2.9 03/31/2017 Pt Oyf9545 Low Intensity - 1.5-2.0 03/31/2017 Pt Hgc0108 Mod intensity - 2.0-3.0 03/31/2017 Pt Hqb1479 Hi intensity - 3.0-4.0 03/31/2017 Pt Ldz0753 PT 21.3 seconds 03/26/2017 Pt Jcu3903 INR 1.9 03/26/2017 Pt Onn2617 Low Intensity - 1.5-2.0 03/26/2017 Pt Wso9145 Mod intensity - 2.0-3.0 03/26/2017 Pt Fnq3356 Hi intensity - 3.0-4.0 03/26/2017 Pt Ies1032 PT 19.8 seconds 03/22/2017 Pt Veo2541 INR 1.7 03/22/2017 Pt Jwd2974 Low Intensity - 1.5-2.0 03/22/2017 Pt Vja5851 Mod intensity - 2.0-3.0 03/22/2017 Pt Ozq1092 Hi intensity - 3.0-4.0 03/22/2017 Pt Cgq8774 PT 15.6 seconds 03/19/2017 Pt Vxb7674 INR 1.3 03/19/2017 Pt Ybc4833 Low Intensity - 1.5-2.0 03/19/2017 Pt Lpr5419 Mod intensity - 2.0-3.0 03/19/2017 Pt Pbj5946 Hi intensity - 3.0-4.0 03/19/2017 Pt Atc7484 PT 13.7 seconds 03/15/2017 Pt Xcm2001 INR 1.1 03/15/2017 Pt Wwv9463 Low Intensity - 1.5-2.0 03/15/2017 Pt Hvd7143 Mod intensity - 2.0-3.0 03/15/2017 Pt Ciw1467 Hi intensity - 3.0-4.0 03/15/2017 Pt Uxh9465 PT 25.8 seconds 01/28/2017 Pt Sae1620 INR 2.4 01/28/2017 Pt Pfj8075 Low Intensity - 1.5-2.0 01/28/2017 Pt Bhh1895 Mod intensity - 2.0-3.0 01/28/2017 Pt Fmn7892 Hi intensity - 3.0-4.0 01/28/2017 %Hba1C Rwy301 % HbA1c 72996-0 6.4 % 10/23/2016 %Hba1C Fim960 Gluc Ave 137 mg/dL 10/23/2016 Comp Metabolic Uds576 NA 138 mEq/L 10/23/2016 Comp Metabolic Brl879 K 3.4 mEq/L 10/23/2016 Comp Metabolic Joh768 CL 100 mEq/L 10/23/2016 Comp Metabolic Cfq211 CO2 30.0 mEq/L 10/23/2016 Comp Metabolic Pww498 AN ION GAP 11 10/23/2016 Comp Metabolic Dey767 GL UCOSE 139 mg/dL 10/23/2016 Comp Metabolic Itg292 Cr eat 0.9 mg/dL 10/23/2016 Comp Metabolic Jfl368 eG FR 62 ml/min/1.73m2 10/23 Comp Metabolic Epd691 BUN 22 mg/dL 10/23/2016 Comp Metabolic Exe948 B/ C Ratio 23.4 Ratio 10/23/2016 Comp Metabolic Luk232 CA LCIUM 8.7 mg/dL 10/23/2016 Comp Metabolic Qqb502 AL K PHOS 66 U/L 10/23/2016 Comp Metabolic Pzi248 T(SGOT) 20 U/L 10/23/2016 Comp Metabolic Bjg185 AL T(SGPT) 10 U/L 10/23/2016 Comp Metabolic Kji811 BI LI T 0.5 mg/dL 10/23/2016 Comp Metabolic Pux069 AL BUMIN 3.5 g/dL 10/23/2016 Comp Metabolic Qup968 TP RO 6.3 g/dL 10/23/2016 Comp Metabolic Jro649 GL OB 2.8 g/dL 10/23/2016 Comp Metabolic Cih008 A/ G Ratio 1.3 Ratio 10/23/2016 Comp Metabolic Gac510 Os mo 281 mOsmo 10/23/2016 Pt Dse3204 PT 26.8 seconds 10/23/2016 Pt Vpd6745 INR 2.7 10/23/2016 Pt Aiw7090 Low Intensity - 1.5-2.0 10/23/2016 Pt Mxc8654 Mod intensity - 2.0-3.0 10/23/2016 Pt Ulg8510 Hi intensity - 3.0-4.0 10/23/2016 Pt Ikt9543 PT 28.3 seconds 09/25/2016 Pt Tli9774 INR 2.8 09/25/2016 Pt Dwk4069 Low Intensity - 1.5-2.0 09/25/2016 Pt Gri3334 Mod intensity - 2.0-3.0 09/25/2016 Pt Vls6680 Hi intensity - 3.0-4.0 09/25/2016 Metabolic Ord15 [...] Metabolic Ord15 CALCIUM 8.8 mg/dL 09/25/2016 Pt Rux7256 PT 30.6 seconds 09/11/2016 Pt Kdk2747 INR 3.2 09/11/2016 Pt Fxx2502 Low Intensity - 1.5-2.0 09/11/2016 Pt Sst2823 Mod intensity - 2.0-3.0 09/11/2016 Pt Oel7435 Hi intensity - 3.0-4.0 09/11/2016 Comp Metabolic Rua693 NA 138 mEq/L 09/11/2016 Comp Metabolic Okf244 K 4.4 mEq/L 09/11/2016 Comp Metabolic Isg169 CL 103 mEq/L 09/11/2016 Comp Metabolic Pst597 CO2 31.0 mEq/L 09/11/2016 Comp Metabolic Mas856 AN ION GAP 8 09/11/2016 Comp Metabolic Skm018 GL UCOSE 146 mg/dL 09/11/2016 Comp Metabolic Kjz943 Cr eat 1.0 mg/dL 09/11/2016 Comp Metabolic Hzq698 eG FR 60 ml/min/1.73m2 09/11 Comp Metabolic Msj772 BUN 16 mg/dL 09/11/2016 Comp Metabolic Nmn623 B/ C Ratio 16.5 Ratio 09/11/2016 Comp Metabolic Znj889 CA LCIUM 8.7 mg/dL 09/11/2016 Comp Metabolic Xua201 AL K PHOS 52 U/L 09/11/2016 Comp Metabolic Dlc085 T(SGOT) 19 U/L 09/11/2016 Comp Metabolic Mko534 AL T(SGPT) 11 U/L 09/11/2016 Comp Metabolic Itm119 BI LI T 0.7 mg/dL 09/11/2016 Comp Metabolic Qpq963 AL BUMIN 3.3 g/dL 09/11/2016 Comp Metabolic Hcd188 TP RO 5.8 g/dL 09/11/2016 Comp Metabolic Jfr588 GL OB 2.5 g/dL 09/11/2016 Comp Metabolic Rka969 A/ G Ratio 1.3 Ratio 09/11/2016 Comp Metabolic Zwp292 Os mo 280 mOsmo 09/11/2016 C-Reactive Protein Qnt Crqnt CRP 0.1 mg/dl 08/21/2016 Comp Metabolic Aoq536 NA 139 mEq/L 08/21/2016 Comp Metabolic Jmw739 K 4.1 mEq/L 08/21/2016 Comp Metabolic Wkz765 CL 102 mEq/L 08/21/2016 Comp Metabolic Alx150 CO2 30.0 mEq/L 08/21/2016 Comp Metabolic Gjw049 AN ION GAP 11 08/21/2016 Comp Metabolic Yoh632 GL UCOSE 148 mg/dL 08/21/2016 Comp Metabolic Hoo124 Cr eat 1.0 mg/dL 08/21/2016 Comp Metabolic Qbo436 eG FR 55 ml/min/1.73m2 08/21 Comp Metabolic Atg163 BUN 21 mg/dL 08/21/2016 Comp Metabolic Chb143 B/ C Ratio 20.2 Ratio 08/21/2016 Comp Metabolic Wta346 CA LCIUM 9.4 mg/dL 08/21/2016 Comp Metabolic Bwu450 AL K PHOS 63 U/L 08/21/2016 Comp Metabolic Gff289 T(SGOT) 23 U/L 08/21/2016 Comp Metabolic Zwz949 AL T(SGPT) 16 U/L 08/21/2016 Comp Metabolic Yat940 BI LI T 0.6 mg/dL 08/21/2016 Comp Metabolic Wjj211 AL BUMIN 3.9 g/dL 08/21/2016 Comp Metabolic Doy809 TP RO 6.8 g/dL 08/21/2016 Comp Metabolic Anz817 GL OB 2.9 g/dL 08/21/2016 Comp Metabolic Fia223 A/ G Ratio 1.4 Ratio 08/21/2016 Comp Metabolic Bhg049 Os mo 283 mOsmo 08/21/2016 Sed Rate Ord21 ESR 16 mm/hr 08/21/2016 Pt Ogt4595 PT 27.2 seconds 08/21/2016 Pt Wvv1622 INR 2.7 08/21/2016 Pt Zbx2829 Low Intensity - 1.5-2.0 08/21/2016 Pt Xyz4390 Mod intensity - 2.0-3.0 08/21/2016 Pt Tok1870 Hi intensity - 3.0-4.0 08/21/2016 Magnesium Ord90 Mag 1.9 mg/dL 08/21/2016 Pt Wsm7416 PT 25.9 seconds 06/17/2016 Pt Dal8094 INR 2.5 06/17/2016 Pt Ceg0905 Low Intensity - 1.5-2.0 06/17/2016 Pt Mxw1975 Mod intensity - 2.0-3.0 06/17/2016 Pt Noc7367 Hi intensity - 3.0-4.0 06/17/2016 Tsh Ord6 hTSH II 2.13 uIU/mL 06/08/2016 Free T4 Voo862 FREE T4 0.79 ng/dL 06/08/2016 Cbc With Differential Ord2 WBC 5.75 K/ul 06/08/2016 Cbc With Differential Ord2 RBC 4.59 M/ul 06/08/2016 Cbc With Differential Ord2 HGB 12.3 g/dl 06/08/2016 Cbc With Differential Ord2 HCT 37.1 % 06/08/2016 Cbc With Differential Ord2 Neut% 57.0 % 06/08/2016 Cbc With Differential Ord2 Lymph% 24.3 % 06/08/2016 Cbc With Differential Ord2 MCV 80.8 fl 06/08/2016 Cbc With Differential Ord2 [place]% 12.0 % 06/08/2016 Cbc With Differential Ord2 MCH 26.8 pg 06/08/2016 Cbc With Differential Ord2 Eos% 5.0 % 06/08/2016 Cbc With Differential Ord2 MCHC 33.2 pg 06/08/2016 Cbc With Differential Ord2 Baso% 1.7 % 06/08/2016 Cbc With Differential Ord2 PLT 196 K/ul 06/08/2016 Cbc With Differential Ord2 Neut ABS# 3.27 K/ul 06/08/2016 Cbc With Differential Ord2 RDW 16.0 % 06/08/2016 Cbc With Differential Ord2 Lymph ABS# 1.40 K/ul 06/08/2016 Cbc With Differential Ord2 [place] ABS# 0.7 K/ul 06/08/2016 Cbc With Differential Ord2 Eos ABS# 0.3 K/ul 06/08/2016 Cbc With Differential Ord2 Baso ABS# 0.1 K/ul 06/08/2016 %Hba1C Hur918 % HbA1c 54839-5 6.2 % 06/08/2016 %Hba1C Nfo325 Gluc Ave 131 mg/dL 06/08/2016 Comp Metabolic Otw196 NA 138 mEq/L 06/08/2016 Comp Metabolic Wbz911 K 3.9 mEq/L 06/08/2016 Comp Metabolic Zmq529 CL 105 mEq/L 06/08/2016 Comp Metabolic Nlg844 CO2 27.0 mEq/L 06/08/2016 Comp Metabolic Vie965 AN ION GAP 10 06/08/2016 Comp Metabolic Lqy907 GL UCOSE 127 mg/dL 06/08/2016 Comp Metabolic Yqu867 Cr eat 1.0 mg/dL 06/08/2016 Comp Metabolic Xbk141 eG FR 59 ml/min/1.73m2 06/08 Comp Metabolic Imw600 BUN 19 mg/dL 06/08/2016 Comp Metabolic Ydm372 B/ C Ratio 19.4 Ratio 06/08/2016 Comp Metabolic Oeq987 CA LCIUM 9.2 mg/dL 06/08/2016 Comp Metabolic Qce591 AL K PHOS 77 U/L 06/08/2016 Comp Metabolic Gfv359 T(SGOT) 19 U/L 06/08/2016 Comp Metabolic Ewm327 AL T(SGPT) 13 U/L 06/08/2016 Comp Metabolic Vdn663 BI LI T 0.5 mg/dL 06/08/2016 Comp Metabolic Bge167 AL BUMIN 3.8 g/dL 06/08/2016 Comp Metabolic Mrl090 TP RO 6.6 g/dL 06/08/2016 Comp Metabolic Kaw470 GL OB 2.8 g/dL 06/08/2016 Comp Metabolic Xdj670 A/ G Ratio 1.4 Ratio 06/08/2016 Comp Metabolic Tlr934 Os mo 280 mOsmo 06/08/2016 Pt Tig5120 PT 36.1 seconds 06/08/2016 Pt Pte0971 INR 3.9 06/08/2016 Pt Snz7412 Low Intensity - 1.5-2.0 06/08/2016 Pt Zxq4872 Mod intensity - 2.0-3.0 06/08/2016 Pt Jag5473 Hi intensity - 3.0-4.0 06/08/2016 Lipid Ord30 CHOL 149 mg/dL 06/08/2016 Lipid Ord30 HDL 46.0 mg/dl 06/08/2016 Lipid Ord30 TRIG 279 mg/dL 06/08/2016 Lipid Ord30 LDL 47 mg/dL 06/08/2016 Lipid Ord30 C/HDL 3.2 Ratio 06/08/2016 Pt Jmt8136 PT 30.9 seconds 02/12/2016 Pt Uhn9224 INR 3.2 02/12/2016 Pt Asp5212 Low Intensity - 1.5-2.0 02/12/2016 Pt Grb7268 Mod intensity - 2.0-3.0 02/12/2016 Pt Opf0396 Hi intensity - 3.0-4.0 02/12/2016 Free T4 Gmr864 FREE T4 1.24 ng/dL 09/27/2015 %Hba1C Ott481 % HbA1c 55173-4 6.4 % 09/27/2015 %Hba1C Ulu409 Gluc Ave 137 mg/dL 09/27/2015 Tsh Ord6 hTSH II 0.37 uIU/mL 09/27/2015 Pt Hdg1219 PT 26.2 seconds 09/27/2015 Pt Ocw0032 INR 2.5 09/27/2015 Pt Vxh2714 Low Intensity - 1.5-2.0 09/27/2015 Pt Iyn0037 Mod intensity - 2.0-3.0 09/27/2015 Pt Acw3481 Hi intensity - 3.0-4.0 09/27/2015 Pt Fch7482 PT 27.6 seconds 2015 Pt Ucg1290 INR 2.7 2015 Pt Gwd0996 Low Intensity - 1.5-2.0 2015 Pt Sib8393 Mod intensity - 2.0-3.0 2015 Pt Rwu9929 Hi intensity - 3.0-4.0 2015 %Hba1C Jvn210 % HbA1c 09104-9 6.1 % 06/11/2015 %Hba1C Nxq896 Gluc Ave 128 mg/dL 06/11/2015 Cbc With [...] Ord2 RDW 15.8 % 06/10/2015 Comp Metabolic Yba934 NA 139 mEq/L 06/10/2015 Comp Metabolic Qrz999 K 4.1 mEq/L 06/10/2015 Comp Metabolic Ilu999 CL 105 mEq/L 06/10/2015 Comp Metabolic Adu195 CO2 27.0 mEq/L 06/10/2015 Comp Metabolic Nqd582 AN ION GAP 11 06/10/2015 Comp Metabolic Agi026 GL UCOSE 127 mg/dL 06/10/2015 Comp Metabolic Uqf674 Cr eat 1.0 mg/dL 06/10/2015 Comp Metabolic Yok788 eG FR 59 ml/min/1.73m2 06/10 Comp Metabolic Bua452 BUN 21 mg/dL 06/10/2015 Comp Metabolic Ipf275 B/ C Ratio 21.2 Ratio 06/10/2015 Comp Metabolic Evk852 CA LCIUM 9.2 mg/dL 06/10/2015 Comp Metabolic Bmz289 AL K PHOS 87 U/L 06/10/2015 Comp Metabolic Gay783 T(SGOT) 20 U/L 06/10/2015 Comp Metabolic Tdv826 AL T(SGPT) 17 U/L 06/10/2015 Comp Metabolic Azl210 BI LI T 0.4 mg/dL 06/10/2015 Comp Metabolic Hid392 AL BUMIN 4.1 g/dL 06/10/2015 Comp Metabolic Iwd223 TP RO 7.2 g/dL 06/10/2015 Comp Metabolic Gfr785 GL OB 3.1 g/dL 06/10/2015 Comp Metabolic Bib777 A/ G Ratio 1.3 Ratio 06/10/2015 Comp Metabolic Juo274 Os mo 282 mOsmo 06/10/2015 Tsh Ord6 hTSH II 0.86 uIU/mL 06/10/2015 Lipid Ord30 CHOL 161 mg/dL 06/10/2015 Lipid Ord30 HDL 49.0 mg/dl 06/10/2015 Lipid Ord30 TRIG 208 mg/dL 06/10/2015 Lipid Ord30 LDL 70 mg/dL 06/10/2015 Lipid Ord30 C/HDL 3.3 Ratio 06/10/2015 Pt Dxu9019 PT 25.0 seconds 04/09/2015 Pt Zjx9962 INR 2.4 04/09/2015 Pt Fto4503 Low Intensity - 1.5-2.0 04/09/2015 Pt Goz7916 Mod intensity - 2.0-3.0 04/09/2015 Pt Oga8579 Hi intensity - 3.0-4.0 04/09/2015 Free T4 Mrf080 FREE T4 1.05 ng/dL 01/22/2015 Pt Xhx1259 PT 27.2 seconds 01/22/2015 Pt Ucf9082 INR 2.6 01/22/2015 Pt Osw6156 Low Intensity - 1.5-2.0 01/22/2015 Pt Gia2062 Mod intensity - 2.0-3.0 01/22/2015 Pt Cic2133 Hi intensity - 3.0-4.0 01/22/2015 Cbc With [...] Differential Ord2 RDW 15.2 % 01/22/2015 B12 Jjj144 B12 402.00 pg/ml 01/22/2015 Tsh Ord6 hTSH II 0.65 uIU/mL 01/22/2015 Lipid Ord30 CHOL 166 mg/dL 01/22/2015 Lipid Ord30 HDL 48.0 mg/dl 01/22/2015 Lipid Ord30 TRIG 264 mg/dL 01/22/2015 Lipid Ord30 LDL 65 mg/dL 01/22/2015 Lipid Ord30 C/HDL 3.5 Ratio 01/22/2015 Comp Metabolic Nka490 NA 138 mEq/L 01/22/2015 Comp Metabolic Aiu318 K 4.1 mEq/L 01/22/2015 Comp Metabolic Syh941 CL 104 mEq/L 01/22/2015 Comp Metabolic Ebb738 CO2 29.0 mEq/L 01/22/2015 Comp Metabolic Sot314 AN ION GAP 9 01/22/2015 Comp Metabolic Bho484 GL UCOSE 106 mg/dL 01/22/2015 Comp Metabolic Fnf862 Cr eat 0.9 mg/dL 01/22/2015 Comp Metabolic Xjo029 eG FR 63 ml/min/1.73m2 01/22 Comp Metabolic Dnu473 BUN 21 mg/dL 01/22/2015 Comp Metabolic Ees607 B/ C Ratio 22.3 Ratio 01/22/2015 Comp Metabolic Axb026 CA LCIUM 9.4 mg/dL 01/22/2015 Comp Metabolic Riw853 AL K PHOS 83 U/L 01/22/2015 Comp Metabolic Zup078 T(SGOT) 23 U/L 01/22/2015 Comp Metabolic Jmr876 AL T(SGPT) 18 U/L 01/22/2015 Comp Metabolic Ail944 BI LI T 0.8 mg/dL 01/22/2015 Comp Metabolic Tde861 AL BUMIN 4.2 g/dL 01/22/2015 Comp Metabolic Nxe450 TP RO 7.3 g/dL 01/22/2015 Comp Metabolic Npv747 GL OB 3.1 g/dL 01/22/2015 Comp Metabolic Rfd331 A/ G Ratio 1.4 Ratio 01/22/2015 Comp Metabolic Uts095 Os mo 279 mOsmo 01/22/2015 Review of [...] Date URINALYSIS NONAUTO W /O SCOPE CPT-4: 02743 03/05/2017 Vital Signs Date Vital 04/14/2018 Blood Pressure 1: 116/78 Code: 8480-6 BMI: 41.6 Code: 67176-4 Heart Rate 1: 72 bpm Height: 5'1" SpO2: 98% Weight: 220 lbs 01/18/2018 Blood Pressure 1: 132/74 Code: 8480-6 BMI: 43.5 Code: 96837-8 Heart Rate 1: 70 bpm Height: 5'1" SpO2: 97% Weight: 230 lbs 01/04/2018 Blood Pressure 1: 134/76 Code: 8480-6 BMI: 42.7 Code: 21235-1 Heart Rate 1: 83 bpm Height: 5'1" SpO2: 98% Weight: 226 lbs 09/23/2017 Blood Pressure 1: 124/76 Code: 8480-6 BMI: 42.3 Code: 70437-9 Heart Rate 1: 94 bpm Height: 5'1" SpO2: 96% Weight: 224 lbs 05/27/2017 Blood Pressure 1: 146/78 Code: 8480-6 BMI: 41.4 Code: 23115-7 Heart Rate 1: 85 bpm Height: 5'1" SpO2: 98% Weight: 219 lbs 02/24/2017 Blood Pressure 1: 138/66 Code: 8480-6 BMI: 41.4 Code: 69963-6 Heart Rate 1: 78 bpm Height: 5'1" SpO2: 97% Weight: 219 lbs 11/02/2016 Blood Pressure 1: 144/72 Code: 8480-6 BMI: 46.1 Code: 32998-0 Heart Rate 1: 78 bpm Height: 5'1" SpO2: 98% Weight: 244 lbs 09/30/2016 Blood Pressure 1: 130/76 Code: 8480-6 BMI: 45.0 Code: 97794-1 Heart Rate 1: 86 bpm Height: 5'1" SpO2: 98% Weight: 238 lbs 09/10/2016 Blood Pressure 1: 136/68 Code: 8480-6 BMI: 46.3 Code: 68868-5 Heart Rate 1: 83 bpm Height: 5'1" SpO2: 98% Weight: 245 lbs 08/20/2016 Blood Pressure 1: 142/78 Code: 8480-6 BMI: 45.3 Code: 59423-1 Heart Rate 1: 84 bpm Height: 5'1" SpO2: 99% Weight: 240 lbs 06/08/2016 Blood Pressure 1: 134/76 Code: 8480-6 BMI: 44.2 Code: 14494-0 Heart Rate 1: 86 bpm Height: 5'1" SpO2: 96% Weight: 234 lbs 04/02/2016 Blood Pressure 1: 142/70 Code: 8480-6 BMI: 44.6 Code: 33131-0 Heart Rate 1: 78 bpm Height: 5'1" SpO2: 97% Weight: 236 lbs 01/14/2016 Blood Pressure 1: 146/72 Code: 8480-6 BMI: 44.2 Code: 36056-2 Heart Rate 1: 86 bpm Height: 5'1" SpO2: 96% Weight: 234 lbs 10/02/2015 Blood Pressure 1: 158/76 Code: 8480-6 BMI: 44.2 Code: 73646-9 Heart Rate 1: 67 bpm Height: 5'1" SpO2: 97% Weight: 234 lbs 07/15/2015 Blood Pressure 1: 148/78 Code: 8480-6 Blood Pressure 1: 200/90 Code: 8480-6 BMI: 44.0 Code: 19829-4 Heart Rate 1: 89 bpm Height: 5'1" SpO2: 97% Weight: 233 lbs 06/10/2015 Blood Pressure 1: 140/82 Code: 8480-6 BMI: 44.0 Code: 99520-7 Heart Rate 1: 78 bpm Height: 5'1" [...] wearing crocs and there was a new kinyarwanda on the floor: her foot didn't move [...] Encounters Encounter Performer Loca tion Codes Date ([id number]) [id number] EST. P ATIENT, LEVEL IV Diagnosis: Essential (primary) hypertension[ICD10: I10] Diagnosis: Hypothyroidism, unspecified[ICD10: E03.9] Diagnosis: Impaired fasting glucose[ICD10: R73.01] Diagnosis: FPC (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[ICD10: Z79.01] Edna Almanza MD, [facility] CPT-4: 00381 04/14/2018 ([id number]) 70016 EST. P ATIENT, LEVEL III Diagnosis: Localized edema[ICD10: R60.0] Diagnosis: Gastro-esophageal reflux disease without esophagitis[ICD10: K21.9] Edna Almanza MD, [facility] CPT-4: 54688 01/18/2018 ([id number]) 04701 EST. [facility] Diagnosis: Gastro-esophageal reflux disease without esophagitis[ICD10: K21.9] Diagnosis: Localized edema[ICD10: R60.0] Diagnosis: Essential (primary) hypertension[ICD10: I10] Diagnosis: Hypothyroidism, unspecified[ICD10: E03.9] Diagnosis: Impaired fasting glucose[ICD10: R73.01] Edna Almanza MD, [facility] CPT-4: 74795 01/04/2018 ([id number]) 01924 EST. P ATIENT, LEVEL IV Diagnosis: Essential (primary) hypertension[ICD10: I10] Diagnosis: FPC (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[ICD10: Z79.01] Diagnosis: Incisional hernia without obstruction or gangrene[ICD10: K43.2] Diagnosis: Right lower quadrant pain[ICD10: R10.31] Sarai Almanza MD, [facility] CPT-4: 94747 09/23/2017 ([id number]) 46659 EST. P ATIENT, LEVEL IV Diagnosis: Essential (primary) hypertension[ICD10: I10] Diagnosis: Mixed hyperlipidemia[ICD10: E78.2] Diagnosis: Hypothyroidism, unspecified[ICD10: E03.9] Diagnosis: Impaired fasting glucose[ICD10: R73.01] Diagnosis: rn long term care (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[ICD10: Z79.01] Edna Almanza MD, [facility] CPT-4: 47994 05/27/2017 06138 EST. PATIENT, LEVEL III Diagnosis: Pain in right hip[ICD10: M25.551] Nata Almanza MD, [facility] CPT-4: 98689 02/24/2017 ([id number]) 55657 EST. P ATIENT, LEVEL IV Diagnosis: Essential (primary) hypertension[ICD10: I10] Diagnosis: Localized edema[ICD10: R60.0] Diagnosis: Pain in right hip[ICD10: M25.551] Sarai Almanza MD, [facility] CPT-4: 14013 11/02/2016 ([id number]) 81048 EST. P ATIENT, LEVEL IV Diagnosis: Essential (primary) hypertension[ICD10: I10] Diagnosis: Localized edema[ICD10: R60.0] Sarai Almanza MD, [facility] CPT-4: 93448 09/30/2016 38055 EST. PATIENT, LEVEL IV Diagnosis: Localized edema[ICD10: R60.0] Diagnosis: Pain in joints of left hand[ICD10: M25.542] Diagnosis: Pain in joints of right hand[ICD10: M25.541] Nata Almanza MD, [facility] CPT-4: 31554 09/10/2016 34269 EST. PATIENT, LEVEL IV Diagnosis: Localized edema[ICD10: R60.0] Diagnosis: Pain in joints of left hand[ICD10: M25.542] Diagnosis: Pain in joints of right hand[ICD10: M25.541] Diagnosis: Other fatigue[ICD10: R53.83] Nata Almanza MD, [facility] CPT-4: 70245 08/20/2016 27374 EST. PATIENT, LEVEL IV Diagnosis: Essential (primary) hypertension[ICD10: I10] Diagnosis: Other rn long term care (current) drug therapy[ICD10: Z79.899] Diagnosis: Tinnitus, bilateral[ICD10: H93.13] Nata Almanza MD, [facility] CPT-4: 50225 06/08/2016 31944 EST. PATIENT, LEVEL IV Diagnosis: Other allergic rhinitis[ICD10: J30.89] Diagnosis: Acute laryngopharyngitis[ICD10: J06.0] Nata Almanza MD, [facility] CPT-4: 48189 04/02/2016 81423 EST. PATIENT, LEVEL IV Diagnosis: Left upper quadrant pain[ICD10: R10.12] Nata Almanza MD, [facility] CPT-4: 19351 01/14/2016 10845 EST. PATIENT, LEVEL IV Diagnosis: Pain in left shoulder[ICD10: M25.512] Diagnosis: Body mass index (BMI) 40.0-44.9, adult[ICD10: Z68.41] Nata Almanza MD, [facility] CPT-4: 68186 10/02/2015 68011 EST. PATIENT, LEVEL IV Diagnosis: Pain in left leg[ICD10: M79.605] Diagnosis: Other rn long term care (current) drug therapy[ICD10: Z79.899] Nata Almanza MD, [facility] CPT-4: 23314 07/15/2015 ([id number]) 52083 EST. 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: Other rn long term care (current) drug therapy[ICD10: Z79.899] [facility] CPT-4: 79574 06/10/2015 ([id number]) OFFICE VISI T NEW - LEVEL 4 Diagnosis: ESSENTIAL HYPERTENSION[ICD9: 401.9] Diagnosis: HYPOTHYROIDISM[ICD9: 244.9] Diagnosis: ENCNTR LONG-RX USE NEC[ICD9: V58.69] Diagnosis: HYPERLIPIDEMIA[ICD9: 272.4] Diagnosis: Vitamin B12 deficiency[ICD9: 266.2] Diagnosis: Status post gastric surgery[ICD9: V45.89] Diagnosis: Snoring[ICD9: 786.09] [facility] CPT-4: 66879 01/22/2015 Plan of Care Planned Activity Notes C odes Status Date Visit Plan: Hypertension - well con maryamlled - continue with current medications, continue with [...] A1C 04/14/2018 [phone] [phone] (15 min) Moderate 04/14/2018 Patient Education: Patient [...] to further attempt to reduce peripheral edema. LSYG-phhxtskb-wruhrdym prilosec BID and carafate QID -discussed low spice, low acidic diet 01/18/2018 Appointment: Edna Douglas WPtel: [phone] [phone] (15 min) Moderate 01/18/2018 [...] of control. 01/04/2018 Appointment: Edna Douglas WPtel: [phone] [phone] (30 min) Complex 01/04/2018 Patient Education: Patient Medication Summary Completed 01/04/2018 Care Plan[facility]9 Pending 01/04/2018 Visit Plan: Abdominal hernia - not able to be taken to surgery by local providers and pt has been seen at [facility] and that surgeon felt like Kat would [...] at home. 09/23/2017 Appointment: Sarai Almanza WPtel: [address] [place], [place] [phone] (15 min) Moderate 09/23/2017 Patient Education: Patient [...] medications. 05/27/2017 Appointment: Edna Douglas WPtel: [phone] [phone] [place] (30 min) Complex 05/27/2017 Patient Education: [...] [place]. 02/24/2017 Appointment: [facility] H[facility] [phone] [facility] [place] (30 min) Complex 02/24/2017 [...] dr. Chaney. 11/02/2016 Appointment: [phone] [place] (15 min) Moderate 11/02/2016 Patient Education: [...] edema. 09/30/2016 Appointment: Sarai Almanza WPtel: [phone] [facility] (15 min) Moderate 09/30/2016 [...] peripheral edema. 09/10/2016 Appointment: Nata Hsu WPtel: [facility]2 [facility] (30 min) Complex 09/10/2016 [...] peripheral edema. 08/20/2016 Appointment: [facility] Hsu [facility]el[facility] [phone] [facility] [place] (30 min) Complex 08/20/2016 Patient Education: Patient Medication Summary Completed 08/20/2016 [facility] Ref[facility] Initiated 07/02/2016 Visit Plan: Chronic [...] 06/08/2016 Care Plan: Referral Order SNOMED-CT : [id number] Pending 06/08/2016 Visit Plan: URI - Pt [...] allergy spray. 04/02/2016 Appointment: Nata Hsu WPtel: [address] [place], [place] [phone] (30 min) Complex 04/02/2016 Patient Education: Patient [...] acute pain 01/14/2016 Appointment: Edna Douglas [facility]Ptel: [phone] (30 min) Complex 01/14/2016 Patient Education: Patient Medication Summary Completed 01/14/2016 Patient Education: Obesity Completed 01/14/2016 Care Plan: BMI Above normal followup DAVID F-MGMT EDUC & TRAIN 1 PT Pending 10/24/2015 Care Plan: X-RAY EXAM OF SHOULDER LOINC : 77402-2 Pending 10/24/2015 Visit Plan: Left shoulder pain [...] Appointment: [facility] [phone] [phone] (15 min) Moderate 10/02/2015 Patient [...] ses Completed 06/10/2015 Appointment: Sarai Almanza WPtel: [address] [place] [phone] (15 min) Moderate 04/22/2015 Visit Plan: Hypertension [...] fixation - planning occurring at [facility]. Snoring - Sleep apnea symptoms with [...] medications. 01/22/2015 Appointment: Sar[facility] Almanza [facility]Ptel: [phone] [facility] [place] ([place] New Patient 01/22/2015 Patient Education: Patient Medication Summary Completed 01/22/2015 Patient Education: Hypertension Completed 01/22/2015 [id number] Referral Initiated Instructions Comment . Chronic Anticoagul [...] fixation - planning occurring at [facility]. Snoring - Sleep apnea symptoms with [...] to further attempt to reduce peripheral edema. HUFR-akvcyuiv-bkwawwkx prilosec BID and carafate QID -discussed low [...] pt has been seen at [facility] and that surgeon felt like Kat would [...] they worsen, or with other concerns. . right upper quadra nt pain - [...]
--- OUTSIDE RECORDS SUMMARY | 2020-01-16 23:26 | XMS REPORT | CCD ---
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 Name Role Phone PP Unavailable CCM Unavailable Summary Purpose Interface Exchange Insurance Providers Payer name Policy type / Coverage type Covered libertarian ID Effective Begin Date Effective End Date WPS Medicare Part B Medicare Part B [id number] 2017 Unknown [employer]ers [place] Medicare Part B [id number] 2017 Unknown Family history Father Diagnosis Age At Onset Hyperlipidemia Unknown Heart Attack Unknown Mother Diagnosis Age At Onset Arthritis Unknown Social History Social History Element Codes Description Effective Dates Marital status Unknown M arried Nathan 09/30/2016 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 Number of children Unknown 3 01/22/[address]: 714055634 Never smoker 01/22/[address]: 201236605 Never drinks alcohol 01/22/2015 Allergies, Adverse Reactions, [...] ICD-9: 790.21 ICD-10: R73.01 Active 05/27/2017 Unknown [facility] (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 ICD-9: V58.61 ICD-10: [...] 780.79 ICD-10: R53.83 Active 08/20/2016 Unknown 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 ICD-9: V58.69 ICD-10: [...] cose ICD-9: 790.21 ICD-10: R73.01 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 [...] ICD-9: 780.79 ICD-10: R53.83 08/20/2016 Active 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 ICD-9: V58.69 ICD-10: [...] Fill Instructions Lipitor 40 mg tablet RxNorm: 400913 TAKE ONE TABLET BY MOUTH DAILY 07/29/2018 07/23/2019 Ac tive Coumadin 1 mg tablet RxNorm: 243016 TAKE ONE TABLET BY MOUTH DAILY 07/29/2018 10/26/2018 Ac tive Carafate 1 gram tablet RxNorm: 143022 TAKE ONE TABLET BY MOUTH BEFORE MEALS AN D AT BEDTIME 07/28/2018 09/17/2018 Active Coumadin 4 mg tablet RxNorm: 981564 2 Tablet(s) daily 07/11/2018 02/05/2019 Active Generi c For:COUMADIN 4MG 07/22/2017 8:58:26 AM Coumadin 5 mg tablet RxNorm: 551267 Tablet(s) TAKE 1 TABLET BY MOUTH DIRE CTED 07/08/2018 01/03/2019 Ac tive Generic For:COUMADIN 5MG TAB 03/21/2018 9:13:00 AM Coumadin 1 mg tablet RxNorm: 078534 1 Tablet(s) PO daily 07/08/2018 08/06/2018 Active Coumadin 4 mg tablet RxNorm: 181506 Tablet(s) TAKE 1 TABLET BY MOUTH THREE T IMES PER WEEK (WEDNESDAY, WEDNESDAY AND WEDNESDAY) 07/08/2018 07/10/2018 Inactive Gene andre For:COUMADIN 4MG 07/22/2017 8:58:26 AM venlafaxine ER 75 mg capsule,extended release 24 hr RxNorm: 795432 Capsule(s) TAKE 1 CAPSULE BY MOUTH ONCE DAILY 06/23/2018 06/17/2019 Active Generic For:*EFFEXOR XR 75MG 06/19/2017 12:23:45 PM sodium bicarbonate 6 50 mg tablet RxNorm: 768238 Tablet(s) TAKE 2 TABL ETS BY MOUTH TWICE DAILY 06/23/2018 12/19/2018 Active 12/20/2017 9:10:59 AM Coumadin 1 mg tablet RxNorm: 290373 1 Tablet(s) PO daily 06/17/2018 07/07/2018 Inactive Coumadin 1 mg tablet RxNorm: 102790 1 Tablet(s) PO daily 06/17/2018 06/16/2018 Inactive clonazepam 0.5 mg ta blet RxNorm: 285218 1 Tablet(s) PO BID 06/08/2018 11/04/2018 Active Synthroid 137 mcg ta blet RxNorm: 568790 TAKE 1 TABLET BY MOUT H ONCE DAILY 05/18/2018 11/13/2018 Ac tive Generic For:SYNTHROID 137MCG TAB 2017 8:57:54 AM spironolactone 25 mg tablet RxNorm: 908717 TAKE 1 TABLET BY MOUT H EVERY DAY 05/18/2018 05/12/2019 Ac tive Generic For:*ALDACTONE 25MG 05/18/2018 8:57:50 AM Carafate 1 gram tablet RxNorm: 902644 TAKE ONE TABLET BY MOUTH BEFORE MEALS AN D AT BEDTIME 05/18/2018 07/12/2018 Inactive Generic For:CARAFATE 1GM 1 07/18/2017 8:38:28 AM allopurinol 300 mg t ablet RxNorm: 894009 TAKE 1 TABLET BY MOUT H ONCE DAILY. 04/18/2018 10/14/2018 Ac tive Generic For:ZYLOPRIM 300 MG TABLET 03/22 9:13:47 AM Lasix 20 mg tablet RxNorm: 211467 TAKE ONE TABLET BY MOUTH DAILY 04/18/2018 08/15/2018 Ac tive Generic For:LASIX 20MG 04/18/2018 9:13: 50 AM Carafate 1 gram tablet RxNorm: 888101 TAKE ONE TABLET BY MOUTH BEFORE MEALS AN D AT BEDTIME 04/18/2018 05/17/2018 Inactive Generic For:CARAFATE 1GM 1 9:32:51 AM Coumadin 5 mg tablet RxNorm: 601405 TAKE 1 TABLET BY MOUTH DIRECTED 03/21/2018 07/07/2018 In active Generic For:COUMADIN 5MG TAB 03/21/2018 9:13:00 AM Carafate 1 gram tablet RxNorm: 714794 TAKE ONE TABLET BY MOUTH BEFORE MEALS AN D AT BEDTIME 03/21/2018 04/17/2018 Inactive Generic For:CARAFATE 1GM 1 9:14:24 AM Carafate 1 gram tablet RxNorm: 478152 1 Tablet(s) PO AC & HS 02/17/2018 03/20/2018 Inactive atenolol 100 mg tablet RxNorm: 264894 1 Tablet(s) PO daily 02/04/2018 09/01/2018 Active atenolol 50 mg tablet RxNorm: 521709 1 Tablet(s) PO daily 02/03/2018 02/03/2018 Inactive omeprazole 20 mg cap sean,delayed release RxNorm: 645826 1 Capsule(s) BID 01/21/2018 01/15/2019 Ac tive Generic For:PRILOSEC 20MG 07/22/2017 8:5 8:20 AM Carafate 1 gram tablet RxNorm: 373873 1 Tablet(s) PO AC & HS 01/21/2018 02/16/2018 Inactive Carafate 1 gram tablet RxNorm: 335466 1 Tablet(s) PO AC & HS 01/18/2018 01/20/2018 Inactive Carafate 1 gram tablet RxNorm: 939988 1 Tablet(s) PO AC & HS 01/18/2018 02/27/2018 Inactive Carafate 1 gram tablet RxNorm: 260968 1 Tablet(s) PO AC & HS TAKE ONE TABLET B Y MOUTH TWICE DAILY 01/18/2018 05/17/2018 Inactive Generic For:CARAFATE 1GM 0 12/20/2017 9:10:56 AM omeprazole 20 mg cap sean,delayed release RxNorm: 676432 Capsule(s) TAKE 1 CAP SEAN BY MOUTH EVERY DAY 01/17/2018 01/20/2018 Inactive Generic For:PRILOSEC 20MG 0 07/22/2017 8:58:20 AM omeprazole 20 mg cap sean,delayed release RxNorm: 553484 Capsule(s) TAKE 1 CAP SEAN BY MOUTH EVERY DAY 01/14/2018 01/16/2018 Inactive Generic For:PRILOSEC 20MG 07/22/2017 8:58:20 AM Plavix 75 mg tablet RxNorm: 713079 1 Tablet(s) PO daily 01/07/2018 07/05/2018 Inactive clonazepam 0.5 mg ta blet RxNorm: 426168 1 Tablet(s) PO BID 01/07/2018 06/05/2018 Inactive Carafate 1 gram tablet RxNorm: 440794 1 Tablet(s) PO AC & HS 01/04/2018 01/17/2018 Inactive Lasix 20 mg tablet RxNorm: 513899 TAKE ONE TABLET BY MOUTH DAILY 12/20/2017 04/17/2018 In active Generic For:LASIX 20MG 12/20/2017 9:11: 03 AM sodium bicarbonate 6 50 mg tablet RxNorm: 692209 TAKE 2 TABLETS BY JAVON TH TWICE DAILY 12/20/2017 06/17/2018 In active 12/20/2017 9:10:59 AM Carafate 1 gram tablet RxNorm: 218535 TAKE ONE TABLET BY MOUTH TWICE DAILY 12/20/2017 01/17/2018 In active Generic For:CARAFATE 1GM 12/20/2017 9:1 0:56 AM Synthroid 137 mcg ta blet RxNorm: 644980 TAKE 1 TABLET BY MOUT H ONCE DAILY 11/19/2017 05/17/2018 In active Generic For:SYNTHROID 137MCG TAB 2017 8:58:04 AM Detrol LA 4 mg capsu le,extended release RxNorm: 109844 TAKE 1 CAPSULE BY JAVON TH ONCE DAILY 10/20/2017 04/13/2018 Inactive Generic For:DETROL LA 4MG C AP 10/20/2017 9:01:56 AM allopurinol 300 mg t ablet RxNorm: 065669 TAKE 1 TABLET BY MOUT H ONCE DAILY. 10/20/2017 04/17/2018 In active Generic For:ZYLOPRIM 300 MG TABLET 07/2017 9:01:59 AM Coumadin 5 mg tablet RxNorm: 461467 1 Tablet(s) PO UD 10/01/2017 03/20/2018 Inactive cyclobenzaprine 5 mg tablet RxNorm: 787251 1 Tablet(s) PO TID as needed myscle spasm 09/23/2017 10/12/2017 Inactive Lipitor 40 mg tablet RxNorm: 043650 TAKE 1 TABLET BY MOUTH ONCE DAILY 09/20/2017 07/28/2018 In active Generic For:LIPITOR 40MG 09/20/2017 8:5 6:04 AM atenolol 100 mg tablet RxNorm: 841761 1 Tablet(s) PO daily 08/30/2017 02/03/2018 Inactive atenolol 50 mg tablet RxNorm: 812593 1 Tablet(s) PO daily 08/30/2017 08/30/2017 Inactive Lovenox 30 mg/0.3 mL subcutaneous syringe RxNorm: 919091 0.3 Milliliter(s) SQ Q12H 08/24/2017 09/06/2017 In active Lasix 20 mg tablet RxNorm: 149746 TAKE ONE TABLET BY MOUTH DAILY 08/23/2017 12/19/2017 In active Generic For:LASIX 20MG 08/21/2017 9:04: 27 AM Synthroid 137 mcg ta blet RxNorm: 655880 TAKE 1 TABLET BY MOUT H ONCE DAILY 08/23/2017 11/18/2017 In active Generic For:SYNTHROID 137MCG TAB 2017 9:04:30 AM Lovenox 30 mg/0.3 mL subcutaneous syringe RxNorm: 595265 0.3 Milliliter(s) SQ Q12H 08/10/2017 08/23/2017 In active clonazepam 0.5 mg ta blet RxNorm: 494749 1 Tablet(s) PO BID 08/04/2017 12/30/2017 Inactive Coumadin 4 mg tablet RxNorm: 890101 TAKE 1 TABLET BY MOUTH THREE TIMES PER [place] (WEDNESDAY, WEDNESDAY AND WEDNESDAY) 07/22/2017 02/16/2018 Inactive Generic For:COUMADIN 4MG 07/22/2017 8:58:26 AM omeprazole 20 mg cap sean,delayed release RxNorm: 240539 TAKE 1 CAPSULE BY JAVON TH EVERY DAY 07/22/2017 01/13/2018 Inactive Generic For:PRILOSEC 20MG 07/22/2017 8: 58:20 AM Coumadin 4 mg tablet RxNorm: 637300 TAKE 1 TABLET BY MOUTH THREE TIMES PER [place] (WEDNESDAY, WEDNESDAY AND WEDNESDAY) 07/22/2017 02/16/2018 Inactive Generic For:COUMADIN 4MG 07/22/2017 8:58:26 AM sodium bicarbonate 6 50 mg tablet RxNorm: 796767 TAKE 2 TABLETS BY JAVON TH TWICE DAILY 06/22/2017 12/18/2017 In active 06/19/2017 12:23:30 PM venlafaxine ER 75 mg capsule,extended release 24 hr RxNorm: 227153 TAKE 1 CAPSULE BY MOUTH ONCE DAILY 06/22/2017 06/16/2018 Inactive Generic For:*EFFEXOR XR 75M G 06/19/2017 12:23:45 PM Coumadin 5 mg tablet RxNorm: 698021 1 Tablet(s) PO UD 06/01/2017 09/30/2017 Inactive Keflex 500 mg capsule RxNorm: 409733 1 Capsule(s) PO TID 05/27/2017 06/02/2017 Inactive Synthroid 137 mcg ta blet RxNorm: 303755 TAKE 1 TABLET BY MOUT H ONCE DAILY 05/24/2017 08/21/2017 In active Generic For:SYNTHROID 137MCG TAB 2016 8:55:59 AM Carafate 1 gram tablet RxNorm: 972014 TAKE ONE TABLET BY MOUTH TWICE DAILY 05/24/2017 12/19/2017 In active Generic For:CARAFATE 1GM 05/24/2017 8:5 5:54 AM spironolactone 25 mg tablet RxNorm: 833318 1 Tablet(s) PO daily 05/24/2017 05/17/2018 Inactive Detrol LA 4 mg capsu le,extended release RxNorm: 597539 1 Capsule(s) PO daily TAKE 1 CAPSULE BY MOUTH ONCE DAILY 05/10/2017 10/19/2017 Inactive Generic For:DETROL LA 4MG CAP 02/19/2017 2:36:00 PM Lasix 20 mg tablet RxNorm: 173623 TAKE ONE TABLET BY MOUTH DAILY 04/23/2017 08/20/2017 In active Generic For:LASIX 20MG 04/23/2017 9:04: 01 AM Coumadin 4 mg tablet RxNorm: 628102 TAKE 1 TABLET BY MOUTH THREE TIMES PER [place] (WEDNESDAY, WEDNESDAY AND WEDNESDAY) 04/23/2017 07/21/2017 Inactive Generic For:COUMADIN 4MG 04/23/2017 9:04:05 AM allopurinol 300 mg t ablet RxNorm: 197070 TAKE 1 TABLET BY MOUT H ONCE DAILY. 04/23/2017 10/19/2017 In active Generic For:ZYLOPRIM 300 MG TABLET 08/2016 9:03:57 AM potassium chloride 2 0 mEq/15 mL oral liquid RxNorm: 143910 Milliliter(s) 30 Milliliter(s) (40mEq) PO daily 03/24/2017 07/21/2017 Inactive Lovenox 30 mg/0.3 mL subcutaneous syringe RxNorm: 331612 0.3 Milliliter(s) SQ Q12H 03/22/2017 03/26/2017 In active Lovenox 30 mg/0.3 mL subcutaneous syringe RxNorm: 413419 0.3 Milliliter(s) SQ Q12H 03/19/2017 03/20/2017 In active Lovenox 30 mg/0.3 mL subcutaneous syringe RxNorm: 933312 0.3 Milliliter(s) SQ Q12H 03/16/2017 03/18/2017 In active clonazepam 0.5 mg ta blet RxNorm: 199361 1 Tablet(s) PO BID 03/02/2017 07/28/2017 Inactive Lovenox 30 mg/0.3 mL subcutaneous syringe RxNorm: 006327 1 injection SQ BID do NOT take the night time dose the day before surgery, or the morning dose the day of surgery 03/01/2017 03/07/2017 Inactive Lovenox 30 mg/0.3 mL subcutaneous syringe RxNorm: 722011 1 injection SQ BID 03/01/2017 02/28/2017 In active Detrol LA 4 mg capsu le,extended release RxNorm: 673851 TAKE 1 CAPSULE BY JAVON TH ONCE DAILY 02/19/2017 05/09/2017 Inactive Generic For:DETROL LA 4MG C AP 02/19/2017 2:36:00 PM hydrocodone 5 mg-humberto taminophen 325 mg tablet RxNorm: 221918 1-2 Tablet(s) PO Q6 P RN 02/04/2017 No Stop Date Active Zetia 10 mg tablet RxNorm: 895166 TAKE 1 TABLET BY MOUTH DAILY 01/25/2017 04/13/2018 Inactive 01/23/2017 9:03:48 AM omeprazole 20 mg cap sean,delayed release RxNorm: 765245 TAKE 1 CAPSULE BY JAVON TH EVERY DAY 01/25/2017 07/21/2017 Inactive Generic For:PRILOSEC 20MG 01/23/2017 9: 03:45 AM Coumadin 4 mg tablet RxNorm: 595427 TAKE 1 TABLET BY MOUTH THREE TIMES PER [place] (WEDNESDAY, WEDNESDAY AND WEDNESDAY) 01/25/2017 04/22/2017 Inactive Generic For:COUMADIN 4MG 01/23/2017 9:03:51 AM sodium bicarbonate 6 50 mg tablet RxNorm: 564828 TAKE 2 TABLETS BY JAVON TH TWICE DAILY 12/24/2016 06/21/2017 In active 12/24/2016 9:09:27 AM Lasix 20 mg tablet RxNorm: 291145 1 Tablet(s) PO daily 12/24/2016 04/22/2017 Inactive Synthroid 137 mcg ta blet RxNorm: 975360 TAKE 1 TABLET BY MOUT H ONCE DAILY 11/24/2016 05/22/2017 In active Generic For:SYNTHROID 137MCG TAB 2016 9:04:37 AM Coumadin 4 mg tablet RxNorm: 041105 TAKE 1 TABLET BY MOUTH THREE TIMES PER [place] (WEDNESDAY, WEDNESDAY AND WEDNESDAY) 11/24/2016 01/22/2017 Inactive Generic For:COUMADIN 4MG 11/24/2016 9:04:41 AM hydrocodone 5 mg-humberto taminophen 325 mg tablet RxNorm: 203037 1-2 Tablet(s) PO Q6 P RN 11/17/2016 02/03/2017 In active Carafate 1 gram tablet RxNorm: 079034 TAKE ONE TABLET BY MOUTH TWICE DAILY 10/27/2016 05/23/2017 In active Generic For:CARAFATE 1GM 10/26/2016 8:3 9:42 AM allopurinol 300 mg t ablet RxNorm: 294067 Tablet(s) TAKE 1 TABL ET BY MOUTH ONCE DAILY. 10/26/2016 04/22/2017 Inactive Lipitor 40 mg tablet RxNorm: 267978 1 Tablet(s) PO daily 09/25/2016 09/19/2017 Inactive Coumadin 4 mg tablet RxNorm: 023332 TAKE 1 TABLET BY MOUTH THREE TIMES PER [place] (WEDNESDAY, WEDNESDAY AND WEDNESDAY) 09/25/2016 11/23/2016 Inactive Generic For:COUMADIN 4MG 09/25/2016 8:55:58 AM Zetia 10 mg tablet RxNorm: 646017 1 Tablet(s) PO daily 09/25/2016 01/22/2017 Inactive gave 1 month of samples clonazepam 0.5 mg ta blet RxNorm: 223447 1 Tablet(s) PO BID 09/21/2016 02/16/2017 Inactive Lasix 20 mg tablet RxNorm: 514540 1 Tablet(s) PO daily 09/15/2016 12/23/2016 Inactive potassium chloride 2 0 mEq/15 mL oral liquid RxNorm: 837934 Milliliter(s) 30 Milliliter(s) (40mEq) PO daily 09/15/2016 01/12/2017 Inactive Lasix 20 mg tablet RxNorm: 117104 2 Tablet(s) PO daily 09/10/2016 09/12/2016 Inactive Lasix 20 mg tablet RxNorm: 731332 1 Tablet(s) PO daily 08/28/2016 08/30/2016 Inactive Lasix 20 mg tablet RxNorm: 542653 1 Tablet(s) PO daily 08/20/2016 08/22/2016 Inactive Detrol LA 4 mg capsu le,extended release RxNorm: 407217 TAKE 1 CAPSULE BY JAVON ONCE DAILY 07/27/2016 02/18/2017 Inactive Generic For:DETROL LA 4MG C AP 07/27/2016 9:08:27 AM Coumadin 4 mg tablet RxNorm: 868516 1 Tablet(s) PO 3 x week wed and sun 07/27/2016 09/24/2016 In active omeprazole 20 mg cap sean,delayed release RxNorm: 785832 Capsule(s) PO TAKE 1 CAPSULE BY MOUTH ONCE DAILY 07/27/2016 01/22/2017 Inactive venlafaxine ER 75 mg capsule,extended release 24 hr RxNorm: 375615 1 Capsule(s) PO daily 06/29/2016 06/21/2017 Inactive sodium bicarbonate 6 50 mg tablet RxNorm: 538953 TAKE 2 TABLETS BY JAVON TWICE DAILY 06/29/2016 12/23/2016 In active 06/27/2016 9:05:39 AM Coumadin 4 mg tablet RxNorm: 783959 1 Tablet(s) PO 3 x week e th and sun 06/09/2016 06/08/2016 In active Coumadin 4 mg tablet RxNorm: 165338 1 Tablet(s) PO 3 x week e thur and sun 06/09/2016 07/26/2016 In active Zetia 10 mg tablet RxNorm: 886210 1 Tablet(s) PO daily 06/09/2016 06/08/2016 Inactive gave 1 month of samples Zetia 10 mg tablet RxNorm: 438173 1 Tablet(s) PO daily 06/09/2016 09/24/2016 Inactive gave 1 month of samples Effexor 75 mg tablet RxNorm: 712461 1 Tablet(s) PO daily 06/08/2016 06/28/2016 Inactive spironolactone 25 mg tablet RxNorm: 292920 1 Tablet(s) PO daily 06/08/2016 05/23/2017 Inactive Synthroid 137 mcg ta blet RxNorm: 658109 1 Tablet(s) PO daily 05/07/2016 11/02/2016 Inactive allopurinol 300 mg t ablet RxNorm: 821353 Tablet(s) TAKE 1 TABL ET BY MOUTH ONCE DAILY. 04/28/2016 10/24/2016 Inactive clonazepam 0.5 mg ta blet RxNorm: 092786 1 Tablet(s) PO BID 04/20/2016 09/15/2016 Inactive Flonase Allergy Reli ef 50 mcg/actuation nasal spray,suspension RxNorm: 6822573 1 [place] NASAL BID 04/02/2016 No Stop Date Active Zithromax Z-Thomas 250 mg tablet RxNorm: 160496 Tablet(s) PO 04/02/2016 08/27/2016 Inactive cetirizine 10 mg tablet RxNorm: 9754228 1 Tablet(s) PO daily 04/02/2016 05/01/2016 Inactive Carafate 1 gram tablet RxNorm: 305417 Tablet(s) TAKE 1 TABLET TWICE A DAY FOR 30 DAYS 03/30/2016 10/25/2016 Inactive Generic For:CARAFATE 1GM 02/08/2015 12:3 6:39 PM Plavix 75 mg tablet RxNorm: 793071 1 Tablet(s) PO daily 03/11/2016 09/06/2016 Inactive sodium bicarbonate 6 50 mg tablet RxNorm: 869417 Tablet(s) 2 Tablet(s) PO BID 02/28/2016 06/26/2016 In active omeprazole 20 mg cap sean,delayed release RxNorm: 044386 Capsule(s) PO TAKE 1 CAPSULE BY MOUTH ONCE DAILY 01/31/2016 07/26/2016 Inactive Fish Oil 1,000 mg ca psule RxNorm: 1 Capsule(s) PO BID 01/14/2016 No Stop Date Active Synthroid 137 mcg ta blet RxNorm: 972648 1 Tablet(s) PO daily 01/14/2016 05/06/2016 Inactive Detrol LA 4 mg capsu le,extended release RxNorm: 345111 TAKE 1 CAPSULE BY JAVON TH ONCE DAILY 12/30/2015 07/26/2016 Inactive Generic For:DETROL LA 4MG C AP 12/30/2015 9:11:01 AM potassium chloride 2 0 mEq/15 mL oral liquid RxNorm: 355267 Milliliter(s) 30 Milliliter(s) (40mEq) PO daily 12/02/2015 03/30/2016 Inactive sodium bicarbonate 6 50 mg tablet RxNorm: 599196 Tablet(s) 2 Tablet(s) PO BID 10/31/2015 02/27/2016 In active Lipitor 40 mg tablet RxNorm: 561227 1 Tablet(s) PO daily 10/09/2015 09/24/2016 Inactive sodium bicarbonate 6 50 mg tablet RxNorm: 974233 2 Tablet(s) PO BID 10/01/2015 10/30/2015 Inactive allopurinol 300 mg t ablet RxNorm: 196373 TAKE 1 TABLET BY MOUT H ONCE DAILY. 10/01/2015 04/27/2016 In active Generic For:ZYLOPRIM 300 MG TABLET 09/19 9:21:15 AM clonazepam 0.5 mg ta blet RxNorm: 431633 1 Tablet(s) PO BID 09/30/2015 04/19/2016 Inactive Coumadin 5 mg tablet RxNorm: 968525 1 Tablet(s) PO daily 09/27/2015 05/31/2017 Inactive Generic For:COUMADIN 5MG TAB N O T I C E PRESCRIPTION PREVIOUSLY AUTHORIZED BY DOCTOR:BOBBY ZULETA Synthroid 125 mcg ta blet RxNorm: 548389 1 Tablet(s) PO daily 09/27/2015 09/26/2015 Inactive Synthroid 125 mcg ta blet RxNorm: 468928 1 Tablet(s) PO daily 09/27/2015 01/13/2016 Inactive Carafate 1 gram tablet RxNorm: 333144 Tablet(s) TAKE 1 TABLET TWICE A DAY FOR 30 DAYS 09/02/2015 03/29/2016 Inactive Generic For:CARAFATE 1GM 02/08/2015 12:3 6:39 PM sodium bicarbonate 6 50 mg tablet RxNorm: 037117 2 Tablet(s) PO BID 09/02/2015 09/30/2015 Inactive Prilosec 20 mg capsu le,delayed release RxNorm: 027769 TAKE 1 CAPSULE BY JAVON TH ONCE DAILY 08/02/2015 01/28/2016 Inactive Generic For:PRILOSEC 20MG 08/02/2015 10:03:09 AM N O T I C E PRESCRIPTION PREVIOUSLY AUTHORIZED BY DOCTOR:BOBBY ZULETA Zyrtec 10 mg capsule RxNorm: 7780577 1 Capsule(s) PO daily 07/15/2015 08/13/2015 Inactive Keflex 500 mg capsule RxNorm: 981245 1 Capsule(s) PO TID 07/15/2015 07/21/2015 Inactive cetirizine 10 mg cap sean RxNorm: 3632793 1 Capsule(s) PO daily 07/15/2015 08/13/2015 Inactive hydrocodone 5 mg-humberto taminophen 325 mg tablet RxNorm: 566022 1-2 Tablet(s) PO Q6 P RN 06/10/2015 11/16/2016 In active sodium bicarbonate 6 50 mg tablet RxNorm: 813785 2 Tablet(s) PO BID 06/03/2015 08/31/2015 Inactive Detrol LA 4 mg capsu le,extended release RxNorm: 588985 TAKE 1 CAPSULE BY JAVON TH ONCE DAILY 06/03/2015 12/29/2015 Inactive Generic For:DETROL LA 4MG C AP N O T I C E PRESCRIPTION PREVIOUSLY AUTHORIZED BY DOCTOR:BOBBY ZULETA atenolol 50 mg tablet RxNorm: 749060 1 Tablet(s) PO daily TAKE 1 TABLET BY MO COH DAILY 05/07/2015 08/23/2017 Inactive Generic For:TENORMIN 50MG 05/04/2015 9:07:22 AM spironolactone 25 mg tablet RxNorm: 718583 1 Tablet(s) PO daily 05/06/2015 06/07/2016 Inactive venlafaxine ER 75 mg capsule,extended release 24 hr RxNorm: 753147 1 Capsule(s) PO daily 05/04/2015 06/28/2016 Inactive atenolol 50 mg tablet RxNorm: 683663 TAKE 1 TABLET BY MOUTH DAILY 05/04/2015 05/06/2015 Inactive Generic For:TENORMIN 50MG 05/04/2015 9: 07:22 AM Synthroid 150 mcg ta blet RxNorm: 919387 TAKE 1 TABLET BY MOUT H ONCE DAILY. 04/05/2015 09/26/2015 In active Generic For:SYNTHROID 150MCG TAB 2014 4:45:40 PM N O T I C E PRESCRIPTION PREVIOUSLY AUTHORIZED BY DOCTOR:BOBBY ZULETA Effexor 75 mg tablet RxNorm: 888206 1 Tablet(s) PO daily 04/05/2015 07/03/2015 Inactive Coumadin 5 mg tablet RxNorm: 943570 TAKE 1 AND 1/2 TABLETS BY MOUTH ONCE MYRANDA LY 04/04/2015 09/26/2015 In active Generic For:COUMADIN 5MG TAB N O T I C E PRESCRIPTION PREVIOUSLY AUTHORIZED BY DOCTOR:BOBBY ZULETA clonazepam 0.5 mg ta blet RxNorm: 970904 1 Tablet(s) PO BID 03/13/2015 11/05/2015 Inactive sodium bicarbonate 6 50 mg tablet RxNorm: 871869 2 Tablet(s) PO BID 03/08/2015 06/02/2015 Inactive allopurinol 300 mg t ablet RxNorm: 961857 TAKE 1 TABLET BY MOUT H ONCE DAILY. 03/05/2015 09/30/2015 In active N O T I C E PRESCRIPTION PREVIOUSLY A UTHORIZED BY DOCTOR:BOBBY ZULETA Plavix 75 mg tablet RxNorm: 894921 1 Tablet(s) PO daily 02/12/2015 09/09/2015 Inactive clonazepam 0.5 mg ta blet RxNorm: 600899 1 Tablet(s) PO BID 02/11/2015 03/11/2015 Inactive Carafate 1 gram tablet RxNorm: 845838 TAKE 1 TABLET TWICE A DAY FOR 30 DAYS 02/08/2015 02/07/2015 In active Generic For:CARAFATE 1GM 02/08/2015 12:3 6:39 PM Carafate 1 gram tablet RxNorm: 645098 Tablet(s) TAKE 1 TABLET TWICE A DAY FOR 30 DAYS 02/08/2015 09/01/2015 Inactive Generic For:CARAFATE 1GM 02/08/2015 12:3 6:39 PM potassium chloride 2 0 mEq/15 mL oral liquid RxNorm: 109202 30 Milliliter(s) (40m Eq) PO daily 02/05/2015 12/01/2015 Inactive atenolol 50 mg tablet RxNorm: 429375 1 Tablet(s) PO daily 02/04/2015 05/03/2015 Inactive [SAVINGS FOR NON-COVERED DRUGS -- BIN: 3585, PCN: [id number], Group: XXXXX, ID# XXXXXXX, Questions: . THIS IS NOT INSURANCE.] potassium chloride 2 0 mEq/15 mL oral liquid RxNorm: 009372 30 Milliliter(s) (40m Eq) PO daily 01/08/2015 02/04/2015 Inactive potassium chloride 2 0 mEq/15 mL oral liquid RxNorm: 265043 30 Milliliter(s) (40m Eq) PO daily 12/07/2014 01/07/2015 Inactive atenolol 50 mg tablet RxNorm: 723853 1 Tablet(s) PO daily 11/09/2014 11/08/2014 Inactive atenolol 50 mg tablet RxNorm: 266702 1 Tablet(s) PO daily 11/09/2014 02/03/2015 Inactive [SAVINGS FOR NON-COVERED DRUGS -- BIN:00 3585, PCN: ASPROD1, Group: XXXXX, ID# XXXXXXX, Questions: . THIS IS NOT INSURANCE.] Voltaren 1 % topical gel RxNorm: 252663 TOP No St art Date Active verapamil ER (HS) 24 0 mg tablet,extended release 24 hr RxNorm: 036231 1 Tablet(s) PO daily No Start Date Active aspirin 81 mg tablet RxNorm: 136968 1 Tablet(s) PO daily No Start Date Active Zofran 4 mg tablet RxNorm: 557764 1 Tablet(s) PO PRN No Start Date Active B12 1000 mcg RxNorm: 1 Tablet(s) PO daily No Start Date Active magnesium oxide 400 mg capsule RxNorm: 812818 2 Capsule(s) PO BID No Start Date Active Synthroid 150 mcg ta blet RxNorm: 642038 1 Tablet(s) PO daily No Start Date 04/04/2015 Inactive Coumadin 5 mg tablet RxNorm: 519912 1 Tablet(s) PO daily No Start Date 04/03/2015 Inactive cranberry 1,000 mg c apsule RxNorm: 627297 1 Capsule(s) PO daily No Start Date 04/13/2018 Inactive allopurinol 300 mg t ablet RxNorm: 194653 1 Tablet(s) PO daily No Start Date 03/04/2015 Inactive Prilosec 20 mg capsu le,delayed release RxNorm: 075049 1 Capsule(s) PO PRN No Start Date 08/01/2015 Inactive potassium chloride 2 0 mEq/15 mL oral liquid RxNorm: 924720 30 Milliliter(s) (40m Eq) PO daily No Start Date 12/06/2014 Inactive atenolol 50 mg tablet RxNorm: 677566 1 Tablet(s) PO daily No Start Date 08/29/2017 Inactive Lipitor 40 mg tablet RxNorm: 933123 1 Tablet(s) PO daily No Start Date 09/19/2017 Inactive Effexor 75 mg tablet RxNorm: 164218 1 Tablet(s) PO daily No Start Date 04/04/2015 Inactive Carafate 1 gram tablet RxNorm: 398187 1 Tablet(s) PO BID No Start Date 02/07/2015 Inactive clonazepam 0.5 mg ta blet RxNorm: 989631 1 Tablet(s) PO BID No Start Date 02/10/2015 Inactive Plavix 75 mg tablet RxNorm: 798089 1 Tablet(s) PO daily No Start Date 02/11/2015 Inactive sodium bicarbonate 6 50 mg tablet RxNorm: 983593 2 Tablet(s) PO BID No Start Date 09/01/2015 Inactive Lovenox 30 mg/0.3 mL subcutaneous syringe RxNorm: 722750 0.3 Milliliter(s) SQ Q12H No Start Date 03/15/2017 Inactive Fish Oil 1,000 mg ca psule RxNorm: 1 Capsule(s) PO daily No Start Date 01/13/2016 Inactive Detrol LA 4 mg capsu le,extended release RxNorm: 911899 1 Capsule(s) PO daily No Start Date [...] fatigue ICD-10: R53.83 ICD-9: 780.79 08/20/2016 Other ocean transportation intermediary (current) drug therapy ICD-10: Z79.899 ICD-9: V58.69 [...] Code Item Item Code Result Date Pt [id number] PT 30.2 seconds 07/25/2018 Pt [id number] INR 2.9 07/25/2018 Pt [id number] Low Intensity - 1.5-2.0 07/25/2018 Pt Ywj4034 Mod intensity - 2.0-3.0 07/25/2018 Pt Edj9051 Hi intensity - 3.0-4.0 07/25/2018 Pt Tpn7019 PT 25.2 seconds 07/19/2018 Pt Vhg7503 INR 2.3 07/19/2018 Pt Ath3567 Low Intensity - 1.5-2.0 07/19/2018 Pt Jvg9017 Mod intensity - 2.0-3.0 07/19/2018 Pt Emr1275 Hi intensity - 3.0-4.0 07/19/2018 Pt Wdh5404 PT 17.4 seconds 07/15/2018 Pt Eya8171 INR 1.5 07/15/2018 Pt Iau4731 Low Intensity - 1.5-2.0 07/15/2018 Pt Lrb9968 Mod intensity - 2.0-3.0 07/15/2018 Pt Way1564 Hi intensity - 3.0-4.0 07/15/2018 Pt Lpb4067 PT 17.8 seconds 07/08/2018 Pt Cgt5421 INR 1.5 07/08/2018 Pt Wrz0186 Low Intensity - 1.5-2.0 07/08/2018 Pt Jeu5825 Mod intensity - 2.0-3.0 07/08/2018 Pt Jtc7952 Hi intensity - 3.0-4.0 07/08/2018 Pt Iyb3956 PT 19.2 seconds 07/01/2018 Pt Deb0268 INR 1.7 07/01/2018 Pt Ctz0972 Low Intensity - 1.5-2.0 07/01/2018 Pt Rjp1033 Mod intensity - 2.0-3.0 07/01/2018 Pt Kuq3074 Hi intensity - 3.0-4.0 07/01/2018 Pt Ebt0606 PT 17.4 seconds 06/23/2018 Pt Fyw4812 INR 1.5 06/23/2018 Pt Rsa5603 Low Intensity - 1.5-2.0 06/23/2018 Pt Cuj8297 Mod intensity - 2.0-3.0 06/23/2018 Pt Sno3004 Hi intensity - 3.0-4.0 06/23/2018 Pt Jxs3593 PT 18.4 seconds 06/17/2018 Pt Ovj3565 INR 1.6 06/17/2018 Pt Zev2683 Low Intensity - 1.5-2.0 06/17/2018 Pt Lfw7649 Mod intensity - 2.0-3.0 06/17/2018 Pt Mzd2796 Hi intensity - 3.0-4.0 06/17/2018 Sed Rate [...] 30.4 pg 06/08/2018 Cbc With Differential Ord2 [place]% 9.4 % 06/08/2018 Cbc With Differential Ord2 [...] 1.20 K/ul 06/08/2018 Cbc With Differential Ord2 [place] ABS# 0.5 K/ul 06/08/2018 Cbc With Differential Ord2 Eos ABS# 0.1 K/ul 06/08/2018 Cbc With Differential Ord2 Baso ABS# 0.1 K/ul 06/08/2018 C-Reactive Protein Qnt Crqnt CRP 0.1 mg/dl 06/08/2018 Pt Vld4491 PT 17.6 seconds 06/08/2018 Pt Vpl2011 INR 1.5 06/08/2018 Pt Sbk9389 Low Intensity - 1.5-2.0 06/08/2018 Pt Emo0516 Mod intensity - 2.0-3.0 06/08/2018 Pt Atr9725 Hi intensity - 3.0-4.0 06/08/2018 Pt Drp1677 PT 16.8 seconds 05/10/2018 Pt Ggr4839 INR 1.4 05/10/2018 Pt Odb8044 Low Intensity - 1.5-2.0 05/10/2018 Pt Btz9806 Mod intensity - 2.0-3.0 05/10/2018 Pt Ozf1902 Hi intensity - 3.0-4.0 05/10/2018 Pt Wdt4182 PT 16.7 seconds 05/04/2018 Pt Bjh3986 INR 1.4 05/04/2018 Pt Wgh4196 Low Intensity - 1.5-2.0 05/04/2018 Pt Bwr3959 Mod intensity - 2.0-3.0 05/04/2018 Pt Tbz6747 Hi intensity - 3.0-4.0 05/04/2018 Free T4 Owd865 FREE T4 1.09 ng/dL 04/14/2018 Tsh Ord6 TSH (3rd IS) 2.36 uIU/mL 04/14/2018 Pt Mql4762 PT 20.3 seconds 04/14/2018 Pt Wgs3619 INR 1.8 04/14/2018 Pt Voq9063 Low Intensity - 1.5-2.0 04/14/2018 Pt Zkd1392 Mod intensity - 2.0-3.0 04/14/2018 Pt Ndq7150 Hi intensity - 3.0-4.0 04/14/2018 Lipid Ord30 CHOL 149 mg/dL 04/14/2018 Lipid Ord30 HDL 49.0 mg/dl 04/14/2018 Lipid Ord30 TRIG 161 mg/dL 04/14/2018 Lipid Ord30 LDL 68 mg/dL 04/14/2018 Lipid Ord30 C/HDL 3.0 Ratio 04/14/2018 %Hba1C Nts803 % HbA1c 23144-0 5.9 % 04/14/2018 %Hba1C Lzu593 Gluc Ave 123 mg/dL 04/14/2018 Comp Metabolic Mfx569 NA 140 mEq/L 04/14/2018 Comp Metabolic Emv967 K 4.1 mEq/L 04/14/2018 Comp Metabolic Amy624 CL 105 mEq/L 04/14/2018 Comp Metabolic Dqd451 CO2 28.0 mEq/L 04/14/2018 Comp Metabolic Foo494 AN ION GAP 11 04/14/2018 Comp Metabolic Zyc982 GL UCOSE 112 mg/dL 04/14/2018 Comp Metabolic Urq242 Cr eat 1.0 mg/dL 04/14/2018 Comp Metabolic Icu474 eG FR 58 ml/min/1.73m2 04/14 Comp Metabolic Dgf112 BUN 20 mg/dL 04/14/2018 Comp Metabolic Kau859 B/ C Ratio 20.2 Ratio 04/14/2018 Comp Metabolic Ubu709 CA LCIUM 10.0 mg/dL 04/14/2018 Comp Metabolic Reg432 AL K PHOS 51 U/L 04/14/2018 Comp Metabolic Ujd023 T(SGOT) 24 U/L 04/14/2018 Comp Metabolic Hdq791 AL T(SGPT) 21 U/L 04/14/2018 Comp Metabolic Seu777 BI LI T 0.8 mg/dL 04/14/2018 Comp Metabolic Bvz354 AL BUMIN 4.2 g/dL 04/14/2018 Comp Metabolic Fad021 TP RO 7.1 g/dL 04/14/2018 Comp Metabolic Bhr185 GL OB 2.9 g/dL 04/14/2018 Comp Metabolic Qnl247 A/ G Ratio 1.5 Ratio 04/14/2018 Comp Metabolic Lss250 Os mo 283 mOsmo 04/14/2018 Cbc With [...] 30.7 pg 04/14/2018 Cbc With Differential Ord2 [place]% 10.6 % 04/14/2018 Cbc With Differential Ord2 [...] 1.18 K/ul 04/14/2018 Cbc With Differential Ord2 [place] ABS# 0.5 K/ul 04/14/2018 Cbc With Differential Ord2 Eos ABS# 0.2 K/ul 04/14/2018 Cbc With Differential Ord2 Baso ABS# 0.1 K/ul 04/14/2018 Pt Vmw4278 PT 29.3 seconds 02/11/2018 Pt Nlf2355 INR 2.8 02/11/2018 Pt Jvc9767 Low Intensity - 1.5-2.0 02/11/2018 Pt Oeb0207 Mod intensity - 2.0-3.0 02/11/2018 Pt Jcz1187 Hi intensity - 3.0-4.0 02/11/2018 Comp Metabolic Xlp639 NA 141 mEq/L 01/05/2018 Comp Metabolic Rfn488 K 3.7 mEq/L 01/05/2018 Comp Metabolic Xtb223 CL 102 mEq/L 01/05/2018 Comp Metabolic Qdx131 CO2 29.0 mEq/L 01/05/2018 Comp Metabolic Egv045 AN ION GAP 14 01/05/2018 Comp Metabolic Hxz042 GL UCOSE 136 mg/dL 01/05/2018 Comp Metabolic Ttl769 Cr eat 1.0 mg/dL 01/05/2018 Comp Metabolic Mnb640 eG FR 61 ml/min/1.73m2 01/05 Comp Metabolic Oks789 BUN 22 mg/dL 01/05/2018 Comp Metabolic Xsf540 B/ C Ratio 22.9 Ratio 01/05/2018 Comp Metabolic Xtq191 CA LCIUM 9.7 mg/dL 01/05/2018 Comp Metabolic Qta792 AL K PHOS 57 U/L 01/05/2018 Comp Metabolic Nch579 T(SGOT) 21 U/L 01/05/2018 Comp Metabolic Lbm728 AL T(SGPT) 19 U/L 01/05/2018 Comp Metabolic Wuo914 BI LI T 0.9 mg/dL 01/05/2018 Comp Metabolic Psg647 AL BUMIN 4.1 g/dL 01/05/2018 Comp Metabolic Oed696 TP RO 7.1 g/dL 01/05/2018 Comp Metabolic Vdd201 GL OB 3.0 g/dL 01/05/2018 Comp Metabolic Wjp700 A/ G Ratio 1.4 Ratio 01/05/2018 Comp Metabolic Mxe851 Os mo 287 mOsmo 01/05/2018 Free T4 Ibo049 FREE T4 1.05 ng/dL 01/05/2018 %Hba1C Exl911 % HbA1c 86920-5 6.0 % 01/05/2018 %Hba1C Igy431 Gluc Ave 126 mg/dL 01/05/2018 Cbc With [...] 27.3 % 01/05/2018 Cbc With Differential Ord2 [place]% 10.5 % 01/05/2018 Cbc With Differential Ord2 [...] 1.27 K/ul 01/05/2018 Cbc With Differential Ord2 [place] ABS# 0.5 K/ul 01/05/2018 Cbc With Differential Ord2 Eos ABS# 0.2 K/ul 01/05/2018 Cbc With Differential Ord2 Baso ABS# 0.1 K/ul 01/05/2018 Pt Nbx9432 PT 20.7 seconds 01/05/2018 Pt Toc5615 INR 1.8 01/05/2018 Pt Laf2460 Low Intensity - 1.5-2.0 01/05/2018 Pt Xpc4645 Mod intensity - 2.0-3.0 01/05/2018 Pt Bab5416 Hi intensity - 3.0-4.0 01/05/2018 Tsh Ord6 TSH (3rd IS) 2.34 uIU/mL 01/05/2018 Lipid Ord30 CHOL 156 mg/dL 01/05/2018 Lipid Ord30 HDL 48.0 mg/dl 01/05/2018 Lipid Ord30 TRIG 207 mg/dL 01/05/2018 Lipid Ord30 LDL 67 mg/dL 01/05/2018 Lipid Ord30 C/HDL 3.3 Ratio 01/05/2018 Pt Jft1999 PT 28.3 seconds 11/26/2017 Pt Dkr5309 INR 2.6 11/26/2017 Pt Rak4462 Low Intensity - 1.5-2.0 11/26/2017 Pt Ois7202 Mod intensity - 2.0-3.0 11/26/2017 Pt Sbu2190 Hi intensity - 3.0-4.0 11/26/2017 Pt Nld6733 PT 36.5 seconds 11/19/2017 Pt Uny1327 INR 3.6 11/19/2017 Pt Ssm2724 Low Intensity - 1.5-2.0 11/19/2017 Pt Aor2696 Mod intensity - 2.0-3.0 11/19/2017 Pt Bsq0844 Hi intensity - 3.0-4.0 11/19/2017 Pt Vgv7951 PT 22.9 seconds 10/15/2017 Pt Krg4711 INR 2.0 10/15/2017 Pt Abp1859 Low Intensity - 1.5-2.0 10/15/2017 Pt Pcd7836 Mod intensity - 2.0-3.0 10/15/2017 Pt Urh7184 Hi intensity - 3.0-4.0 10/15/2017 Pt Gmp9288 PT 25.9 seconds 10/01/2017 Pt Bgi4539 INR 2.4 10/01/2017 Pt Kzy2904 Low Intensity - 1.5-2.0 10/01/2017 Pt Vul4652 Mod intensity - 2.0-3.0 10/01/2017 Pt Eqf3628 Hi intensity - 3.0-4.0 10/01/2017 Pt Mfy3804 PT 20.6 seconds 09/24/2017 Pt Kkz2885 INR 1.8 09/24/2017 Pt Dsu8237 Low Intensity - 1.5-2.0 09/24/2017 Pt Ebl7254 Mod intensity - 2.0-3.0 09/24/2017 Pt Qjz9643 Hi intensity - 3.0-4.0 09/24/2017 Pt Dyi2793 PT 21.0 seconds 09/15/2017 Pt Rrw1481 INR 1.8 09/15/2017 Pt Pys9562 Low Intensity - 1.5-2.0 09/15/2017 Pt Cxu3019 Mod intensity - 2.0-3.0 09/15/2017 Pt Byj1026 Hi intensity - 3.0-4.0 09/15/2017 Pt Lmo1818 PT 19.0 seconds 09/03/2017 Pt Qre4427 INR 1.6 09/03/2017 Pt Fdr5657 Low Intensity - 1.5-2.0 09/03/2017 Pt Hbh2524 Mod intensity - 2.0-3.0 09/03/2017 Pt Tng9493 Hi intensity - 3.0-4.0 09/03/2017 Pt Jrz9882 PT 17.6 seconds 08/23/2017 Pt Pgm0855 INR 1.5 08/23/2017 Pt Ymb2125 Low Intensity - 1.5-2.0 08/23/2017 Pt Nal9819 Mod intensity - 2.0-3.0 08/23/2017 Pt Hzk4220 Hi intensity - 3.0-4.0 08/23/2017 Pt Wwp3333 PT 12.7 seconds 08/20/2017 Pt Kel5361 INR 1.0 08/20/2017 Pt Atr3797 Low Intensity - 1.5-2.0 08/20/2017 Pt Mks3261 Mod intensity - 2.0-3.0 08/20/2017 Pt Cky3936 Hi intensity - 3.0-4.0 08/20/2017 Pt Yjr4060 PT 12.9 seconds 08/17/2017 Pt Fmt9664 INR 1.0 08/17/2017 Pt Nya4113 Low Intensity - 1.5-2.0 08/17/2017 Pt Gon0316 Mod intensity - 2.0-3.0 08/17/2017 Pt Bao7755 Hi intensity - 3.0-4.0 08/17/2017 Pt Fgy7207 PT 18.5 seconds 08/10/2017 Pt Blv3854 INR 1.6 08/10/2017 Pt Slu2665 Low Intensity - 1.5-2.0 08/10/2017 Pt Keq7498 Mod intensity - 2.0-3.0 08/10/2017 Pt Gvi9566 Hi intensity - 3.0-4.0 08/10/2017 Tsh Ord6 [...] 14.7 % 05/27/2017 Cbc With Differential Ord2 [place]% 8.1 % 05/27/2017 Cbc With Differential Ord2 [...] 1.11 K/ul 05/27/2017 Cbc With Differential Ord2 [place] ABS# 0.6 K/ul 05/27/2017 Cbc With Differential Ord2 Eos ABS# 0.2 K/ul 05/27/2017 Cbc With Differential Ord2 Baso ABS# 0.1 K/ul 05/27/2017 Pt Mor3994 PT 28.2 seconds 05/27/2017 Pt Zlv0095 INR 2.6 05/27/2017 Pt Xrl7906 Low Intensity - 1.5-2.0 05/27/2017 Pt Rkz6389 Mod intensity - 2.0-3.0 05/27/2017 Pt Azh4762 Hi intensity - 3.0-4.0 05/27/2017 Lipid Ord30 CHOL 167 mg/dL 05/27/2017 Lipid Ord30 HDL 49.0 mg/dl 05/27/2017 Lipid Ord30 TRIG 347 mg/dL 05/27/2017 Lipid Ord30 LDL 49 mg/dL 05/27/2017 Lipid Ord30 C/HDL 3.4 Ratio 05/27/2017 Magnesium Ord90 Mag 1.4 mg/dL 05/27/2017 %Hba1C Zvq690 % HbA1c 69314-4 5.9 % 05/27/2017 %Hba1C Kta324 Gluc Ave 123 mg/dL 05/27/2017 Comp Metabolic Gqg789 NA 138 mEq/L 05/27/2017 Comp Metabolic Hda854 K 4.1 mEq/L 05/27/2017 Comp Metabolic Cqw131 CL 101 mEq/L 05/27/2017 Comp Metabolic Jjm539 CO2 31.0 mEq/L 05/27/2017 Comp Metabolic Iau243 AN ION GAP 10 05/27/2017 Comp Metabolic Cfq535 GL UCOSE 117 mg/dL 05/27/2017 Comp Metabolic Gmj461 Cr eat 0.9 mg/dL 05/27/2017 Comp Metabolic Yyn933 eG FR 62 ml/min/1.73m2 05/27 Comp Metabolic Wem054 BUN 25 mg/dL 05/27/2017 Comp Metabolic Lfc797 B/ C Ratio 26.6 Ratio 05/27/2017 Comp Metabolic Aya281 CA LCIUM 9.5 mg/dL 05/27/2017 Comp Metabolic Mbh961 AL K PHOS 73 U/L 05/27/2017 Comp Metabolic Npg207 T(SGOT) 18 U/L 05/27/2017 Comp Metabolic Kth368 AL T(SGPT) 12 U/L 05/27/2017 Comp Metabolic Vtc955 BI LI T 0.5 mg/dL 05/27/2017 Comp Metabolic Onv840 AL BUMIN 4.1 g/dL 05/27/2017 Comp Metabolic Lpz032 TP RO 7.1 g/dL 05/27/2017 Comp Metabolic Gjw919 GL OB 3.0 g/dL 05/27/2017 Comp Metabolic Wkx832 A/ G Ratio 1.3 Ratio 05/27/2017 Comp Metabolic Tgs123 Os mo 281 mOsmo 05/27/2017 Free T4 Ghr671 FREE T4 0.91 ng/dL 05/27/2017 Pt Mhd5853 PT 29.2 seconds 04/16/2017 Pt Hys9656 INR 2.7 04/16/2017 Pt Cma4025 Low Intensity - 1.5-2.0 04/16/2017 Pt Cce8829 Mod intensity - 2.0-3.0 04/16/2017 Pt Zep9308 Hi intensity - 3.0-4.0 04/16/2017 Pt Ucy2854 PT 30.7 seconds 03/31/2017 Pt Ndx8353 INR 2.9 03/31/2017 Pt Rda5477 Low Intensity - 1.5-2.0 03/31/2017 Pt Kou6020 Mod intensity - 2.0-3.0 03/31/2017 Pt Xec2257 Hi intensity - 3.0-4.0 03/31/2017 Pt Wtl6604 PT 21.3 seconds 03/26/2017 Pt Ing8811 INR 1.9 03/26/2017 Pt Oei4477 Low Intensity - 1.5-2.0 03/26/2017 Pt Maa2317 Mod intensity - 2.0-3.0 03/26/2017 Pt Sxh8300 Hi intensity - 3.0-4.0 03/26/2017 Pt Mjs0011 PT 19.8 seconds 03/22/2017 Pt Yrc6731 INR 1.7 03/22/2017 Pt Fuz0145 Low Intensity - 1.5-2.0 03/22/2017 Pt Ovl3297 Mod intensity - 2.0-3.0 03/22/2017 Pt Yhd8715 Hi intensity - 3.0-4.0 03/22/2017 Pt Wsu9068 PT 15.6 seconds 03/19/2017 Pt Wkm2964 INR 1.3 03/19/2017 Pt Ynm7665 Low Intensity - 1.5-2.0 03/19/2017 Pt Osg0650 Mod intensity - 2.0-3.0 03/19/2017 Pt Urq0583 Hi intensity - 3.0-4.0 03/19/2017 Pt Kqc1386 PT 13.7 seconds 03/15/2017 Pt Lir3873 INR 1.1 03/15/2017 Pt Ewz3605 Low Intensity - 1.5-2.0 03/15/2017 Pt Tar0040 Mod intensity - 2.0-3.0 03/15/2017 Pt Chc7832 Hi intensity - 3.0-4.0 03/15/2017 Pt Ehx9403 PT 25.8 seconds 01/28/2017 Pt Hxb7688 INR 2.4 01/28/2017 Pt Zqd4525 Low Intensity - 1.5-2.0 01/28/2017 Pt Zsg4774 Mod intensity - 2.0-3.0 01/28/2017 Pt Ztd3167 Hi intensity - 3.0-4.0 01/28/2017 %Hba1C Fsy932 % HbA1c 64498-9 6.4 % 10/23/2016 %Hba1C Wsh359 Gluc Ave 137 mg/dL 10/23/2016 Comp Metabolic Taq004 NA 138 mEq/L 10/23/2016 Comp Metabolic Qsv820 K 3.4 mEq/L 10/23/2016 Comp Metabolic Pje456 CL 100 mEq/L 10/23/2016 Comp Metabolic Prq446 CO2 30.0 mEq/L 10/23/2016 Comp Metabolic Rkq089 AN ION GAP 11 10/23/2016 Comp Metabolic Vte431 GL UCOSE 139 mg/dL 10/23/2016 Comp Metabolic Drf498 Cr eat 0.9 mg/dL 10/23/2016 Comp Metabolic Nfe466 eG FR 62 ml/min/1.73m2 10/23 Comp Metabolic Uly301 BUN 22 mg/dL 10/23/2016 Comp Metabolic Olq722 B/ C Ratio 23.4 Ratio 10/23/2016 Comp Metabolic Eos864 CA LCIUM 8.7 mg/dL 10/23/2016 Comp Metabolic Jqg301 AL K PHOS 66 U/L 10/23/2016 Comp Metabolic Urz784 T(SGOT) 20 U/L 10/23/2016 Comp Metabolic Ops291 AL T(SGPT) 10 U/L 10/23/2016 Comp Metabolic Vwr428 BI LI T 0.5 mg/dL 10/23/2016 Comp Metabolic Voj647 AL BUMIN 3.5 g/dL 10/23/2016 Comp Metabolic Rru764 TP RO 6.3 g/dL 10/23/2016 Comp Metabolic Vbx947 GL OB 2.8 g/dL 10/23/2016 Comp Metabolic Hxp735 A/ G Ratio 1.3 Ratio 10/23/2016 Comp Metabolic Lox969 Os mo 281 mOsmo 10/23/2016 Pt Dvd2471 PT 26.8 seconds 10/23/2016 Pt Mzz3168 INR 2.7 10/23/2016 Pt Qwe3687 Low Intensity - 1.5-2.0 10/23/2016 Pt Mde7560 Mod intensity - 2.0-3.0 10/23/2016 Pt Arr9420 Hi intensity - 3.0-4.0 10/23/2016 Pt Prx8565 PT 28.3 seconds 09/25/2016 Pt Kwj9577 INR 2.8 09/25/2016 Pt Kgi3161 Low Intensity - 1.5-2.0 09/25/2016 Pt Fqw0683 Mod intensity - 2.0-3.0 09/25/2016 Pt Txg5764 Hi intensity - 3.0-4.0 09/25/2016 Metabolic Ord15 [...] Metabolic Ord15 CALCIUM 8.8 mg/dL 09/25/2016 Pt Wmf7413 PT 30.6 seconds 09/11/2016 Pt Pqw3138 INR 3.2 09/11/2016 Pt Caa8835 Low Intensity - 1.5-2.0 09/11/2016 Pt Eeo4587 Mod intensity - 2.0-3.0 09/11/2016 Pt Uex5310 Hi intensity - 3.0-4.0 09/11/2016 Comp Metabolic Vid096 NA 138 mEq/L 09/11/2016 Comp Metabolic Puf456 K 4.4 mEq/L 09/11/2016 Comp Metabolic Ufg221 CL 103 mEq/L 09/11/2016 Comp Metabolic Knr476 CO2 31.0 mEq/L 09/11/2016 Comp Metabolic Cem368 AN ION GAP 8 09/11/2016 Comp Metabolic Tsg672 GL UCOSE 146 mg/dL 09/11/2016 Comp Metabolic Sle932 Cr eat 1.0 mg/dL 09/11/2016 Comp Metabolic Jjq435 eG FR 60 ml/min/1.73m2 09/11 Comp Metabolic Ooa623 BUN 16 mg/dL 09/11/2016 Comp Metabolic Hht888 B/ C Ratio 16.5 Ratio 09/11/2016 Comp Metabolic Loq842 CA LCIUM 8.7 mg/dL 09/11/2016 Comp Metabolic Bbx293 AL K PHOS 52 U/L 09/11/2016 Comp Metabolic Ebo096 T(SGOT) 19 U/L 09/11/2016 Comp Metabolic Zte978 AL T(SGPT) 11 U/L 09/11/2016 Comp Metabolic Lpu251 BI LI T 0.7 mg/dL 09/11/2016 Comp Metabolic Ypq195 AL BUMIN 3.3 g/dL 09/11/2016 Comp Metabolic Zmc171 TP RO 5.8 g/dL 09/11/2016 Comp Metabolic Eey910 GL OB 2.5 g/dL 09/11/2016 Comp Metabolic Pmk416 A/ G Ratio 1.3 Ratio 09/11/2016 Comp Metabolic Dub368 Os mo 280 mOsmo 09/11/2016 C-Reactive Protein Qnt Crqnt CRP 0.1 mg/dl 08/21/2016 Comp Metabolic Wsh537 NA 139 mEq/L 08/21/2016 Comp Metabolic Dxr284 K 4.1 mEq/L 08/21/2016 Comp Metabolic Saj224 CL 102 mEq/L 08/21/2016 Comp Metabolic Bkv388 CO2 30.0 mEq/L 08/21/2016 Comp Metabolic Cqb396 AN ION GAP 11 08/21/2016 Comp Metabolic Njd884 GL UCOSE 148 mg/dL 08/21/2016 Comp Metabolic Rxz582 Cr eat 1.0 mg/dL 08/21/2016 Comp Metabolic Ztr865 eG FR 55 ml/min/1.73m2 08/21 Comp Metabolic Sue836 BUN 21 mg/dL 08/21/2016 Comp Metabolic Cds267 B/ C Ratio 20.2 Ratio 08/21/2016 Comp Metabolic Kwd682 CA LCIUM 9.4 mg/dL 08/21/2016 Comp Metabolic Xtk212 AL K PHOS 63 U/L 08/21/2016 Comp Metabolic Msp682 T(SGOT) 23 U/L 08/21/2016 Comp Metabolic Icx297 AL T(SGPT) 16 U/L 08/21/2016 Comp Metabolic Tpr648 BI LI T 0.6 mg/dL 08/21/2016 Comp Metabolic Cou083 AL BUMIN 3.9 g/dL 08/21/2016 Comp Metabolic Rdf187 TP RO 6.8 g/dL 08/21/2016 Comp Metabolic Pgj784 GL OB 2.9 g/dL 08/21/2016 Comp Metabolic Crj826 A/ G Ratio 1.4 Ratio 08/21/2016 Comp Metabolic Afw070 Os mo 283 mOsmo 08/21/2016 Sed Rate Ord21 ESR 16 mm/hr 08/21/2016 Pt Eha3534 PT 27.2 seconds 08/21/2016 Pt Yoo4844 INR 2.7 08/21/2016 Pt Are0658 Low Intensity - 1.5-2.0 08/21/2016 Pt Nnj1892 Mod intensity - 2.0-3.0 08/21/2016 Pt Qrh9128 Hi intensity - 3.0-4.0 08/21/2016 Magnesium Ord90 Mag 1.9 mg/dL 08/21/2016 Pt Rnq3409 PT 25.9 seconds 06/17/2016 Pt Mzo9735 INR 2.5 06/17/2016 Pt Uzz5858 Low Intensity - 1.5-2.0 06/17/2016 Pt Sqj4472 Mod intensity - 2.0-3.0 06/17/2016 Pt Imk7143 Hi intensity - 3.0-4.0 06/17/2016 Tsh Ord6 hTSH II 2.13 uIU/mL 06/08/2016 Free T4 Zby132 FREE T4 0.79 ng/dL 06/08/2016 Cbc With [...] 80.8 fl 06/08/2016 Cbc With Differential Ord2 [place]% 12.0 % 06/08/2016 Cbc With Differential Ord2 [...] 1.40 K/ul 06/08/2016 Cbc With Differential Ord2 [place] ABS# 0.7 K/ul 06/08/2016 Cbc With Differential Ord2 Eos ABS# 0.3 K/ul 06/08/2016 Cbc With Differential Ord2 Baso ABS# 0.1 K/ul 06/08/2016 %Hba1C Dhn124 % HbA1c 42671-2 6.2 % 06/08/2016 %Hba1C Eos683 Gluc Ave 131 mg/dL 06/08/2016 Comp Metabolic Vka860 NA 138 mEq/L 06/08/2016 Comp Metabolic Cds588 K 3.9 mEq/L 06/08/2016 Comp Metabolic Goc300 CL 105 mEq/L 06/08/2016 Comp Metabolic Wfq564 CO2 27.0 mEq/L 06/08/2016 Comp Metabolic Zfn913 AN ION GAP 10 06/08/2016 Comp Metabolic Zvl425 GL UCOSE 127 mg/dL 06/08/2016 Comp Metabolic Hfu897 Cr eat 1.0 mg/dL 06/08/2016 Comp Metabolic Sji633 eG FR 59 ml/min/1.73m2 06/08 Comp Metabolic Aao962 BUN 19 mg/dL 06/08/2016 Comp Metabolic Ghq917 B/ C Ratio 19.4 Ratio 06/08/2016 Comp Metabolic Rxg729 CA LCIUM 9.2 mg/dL 06/08/2016 Comp Metabolic Zgm583 AL K PHOS 77 U/L 06/08/2016 Comp Metabolic Ekw442 T(SGOT) 19 U/L 06/08/2016 Comp Metabolic Onk815 AL T(SGPT) 13 U/L 06/08/2016 Comp Metabolic Jdi500 BI LI T 0.5 mg/dL 06/08/2016 Comp Metabolic Lwc883 AL BUMIN 3.8 g/dL 06/08/2016 Comp Metabolic Ypf805 TP RO 6.6 g/dL 06/08/2016 Comp Metabolic Oxi032 GL OB 2.8 g/dL 06/08/2016 Comp Metabolic Gaj958 A/ G Ratio 1.4 Ratio 06/08/2016 Comp Metabolic Cpf672 Os mo 280 mOsmo 06/08/2016 Pt Mst9870 PT 36.1 seconds 06/08/2016 Pt Wzj9711 INR 3.9 06/08/2016 Pt Uiu6171 Low Intensity - 1.5-2.0 06/08/2016 Pt Mlu9310 Mod intensity - 2.0-3.0 06/08/2016 Pt Uhz9278 Hi intensity - 3.0-4.0 06/08/2016 Lipid Ord30 CHOL 149 mg/dL 06/08/2016 Lipid Ord30 HDL 46.0 mg/dl 06/08/2016 Lipid Ord30 TRIG 279 mg/dL 06/08/2016 Lipid Ord30 LDL 47 mg/dL 06/08/2016 Lipid Ord30 C/HDL 3.2 Ratio 06/08/2016 Pt Pqp6323 PT 30.9 seconds 02/12/2016 Pt Hbv4668 INR 3.2 02/12/2016 Pt Vqv6643 Low Intensity - 1.5-2.0 02/12/2016 Pt Dok8951 Mod intensity - 2.0-3.0 02/12/2016 Pt Tcn5434 Hi intensity - 3.0-4.0 02/12/2016 Free T4 Koh114 FREE T4 1.24 ng/dL 09/27/2015 %Hba1C Ifi138 % HbA1c 97146-2 6.4 % 09/27/2015 %Hba1C Nki111 Gluc Ave 137 mg/dL 09/27/2015 Tsh Ord6 hTSH II 0.37 uIU/mL 09/27/2015 Pt Uxz1681 PT 26.2 seconds 09/27/2015 Pt Wkp2860 INR 2.5 09/27/2015 Pt Prh3327 Low Intensity - 1.5-2.0 09/27/2015 Pt Iek0560 Mod intensity - 2.0-3.0 09/27/2015 Pt Oux6545 Hi intensity - 3.0-4.0 09/27/2015 Pt Aqi3011 PT 27.6 seconds 2015 Pt Cnn4240 INR 2.7 2015 Pt Lvn7606 Low Intensity - 1.5-2.0 2015 Pt Pgk8891 Mod intensity - 2.0-3.0 2015 Pt Aaw1366 Hi intensity - 3.0-4.0 2015 %Hba1C Gtj293 % HbA1c 54371-7 6.1 % 06/11/2015 %Hba1C Elz061 Gluc Ave 128 mg/dL 06/11/2015 Cbc With [...] Ord2 RDW 15.8 % 06/10/2015 Comp Metabolic Xqt809 NA 139 mEq/L 06/10/2015 Comp Metabolic Nbs098 K 4.1 mEq/L 06/10/2015 Comp Metabolic Uzm214 CL 105 mEq/L 06/10/2015 Comp Metabolic Ake508 CO2 27.0 mEq/L 06/10/2015 Comp Metabolic Atf828 AN ION GAP 11 06/10/2015 Comp Metabolic Jve635 GL UCOSE 127 mg/dL 06/10/2015 Comp Metabolic Ols568 Cr eat 1.0 mg/dL 06/10/2015 Comp Metabolic Yef443 eG FR 59 ml/min/1.73m2 06/10 Comp Metabolic Kgh460 BUN 21 mg/dL 06/10/2015 Comp Metabolic Bah505 B/ C Ratio 21.2 Ratio 06/10/2015 Comp Metabolic Efd777 CA LCIUM 9.2 mg/dL 06/10/2015 Comp Metabolic Cdb331 AL K PHOS 87 U/L 06/10/2015 Comp Metabolic Trz430 T(SGOT) 20 U/L 06/10/2015 Comp Metabolic Joy547 AL T(SGPT) 17 U/L 06/10/2015 Comp Metabolic Etd888 BI LI T 0.4 mg/dL 06/10/2015 Comp Metabolic Qmd620 AL BUMIN 4.1 g/dL 06/10/2015 Comp Metabolic Ngq601 TP RO 7.2 g/dL 06/10/2015 Comp Metabolic Mkt316 GL OB 3.1 g/dL 06/10/2015 Comp Metabolic Vhy899 A/ G Ratio 1.3 Ratio 06/10/2015 Comp Metabolic Kvc037 Os mo 282 mOsmo 06/10/2015 Tsh Ord6 hTSH II 0.86 uIU/mL 06/10/2015 Lipid Ord30 CHOL 161 mg/dL 06/10/2015 Lipid Ord30 HDL 49.0 mg/dl 06/10/2015 Lipid Ord30 TRIG 208 mg/dL 06/10/2015 Lipid Ord30 LDL 70 mg/dL 06/10/2015 Lipid Ord30 C/HDL 3.3 Ratio 06/10/2015 Pt Gna0862 PT 25.0 seconds 04/09/2015 Pt Mbl4475 INR 2.4 04/09/2015 Pt Wly7460 Low Intensity - 1.5-2.0 04/09/2015 Pt Kqh2204 Mod intensity - 2.0-3.0 04/09/2015 Pt Mhb3388 Hi intensity - 3.0-4.0 04/09/2015 Free T4 Qrh636 FREE T4 1.05 ng/dL 01/22/2015 Pt Btq0844 PT 27.2 seconds 01/22/2015 Pt Sst5483 INR 2.6 01/22/2015 Pt Eca4037 Low Intensity - 1.5-2.0 01/22/2015 Pt Qqt0346 Mod intensity - 2.0-3.0 01/22/2015 Pt Zgx4028 Hi intensity - 3.0-4.0 01/22/2015 Cbc With [...] Differential Ord2 RDW 15.2 % 01/22/2015 B12 Ken611 B12 402.00 pg/ml 01/22/2015 Tsh Ord6 hTSH II 0.65 uIU/mL 01/22/2015 Lipid Ord30 CHOL 166 mg/dL 01/22/2015 Lipid Ord30 HDL 48.0 mg/dl 01/22/2015 Lipid Ord30 TRIG 264 mg/dL 01/22/2015 Lipid Ord30 LDL 65 mg/dL 01/22/2015 Lipid Ord30 C/HDL 3.5 Ratio 01/22/2015 Comp Metabolic Pvm738 NA 138 mEq/L 01/22/2015 Comp Metabolic Qjv754 K 4.1 mEq/L 01/22/2015 Comp Metabolic Xon963 CL 104 mEq/L 01/22/2015 Comp Metabolic Wpz459 CO2 29.0 mEq/L 01/22/2015 Comp Metabolic Kqc729 AN ION GAP 9 01/22/2015 Comp Metabolic Fzv112 GL UCOSE 106 mg/dL 01/22/2015 Comp Metabolic Okc263 Cr eat 0.9 mg/dL 01/22/2015 Comp Metabolic Ifs333 eG FR 63 ml/min/1.73m2 01/22 Comp Metabolic Xom025 BUN 21 mg/dL 01/22/2015 Comp Metabolic Etk914 B/ C Ratio 22.3 Ratio 01/22/2015 Comp Metabolic Bvz918 CA LCIUM 9.4 mg/dL 01/22/2015 Comp Metabolic Pax840 AL K PHOS 83 U/L 01/22/2015 Comp Metabolic Ths936 T(SGOT) 23 U/L 01/22/2015 Comp Metabolic Iuz429 AL T(SGPT) 18 U/L 01/22/2015 Comp Metabolic Gyh151 BI LI T 0.8 mg/dL 01/22/2015 Comp Metabolic Kfk024 AL BUMIN 4.2 g/dL 01/22/2015 Comp Metabolic Rbp134 TP RO 7.3 g/dL 01/22/2015 Comp Metabolic Umq053 GL OB 3.1 g/dL 01/22/2015 Comp Metabolic Bpn284 A/ G Ratio 1.4 Ratio 01/22/2015 Comp Metabolic Qmf041 Os mo 279 mOsmo 01/22/2015 Review of [...] Date URINALYSIS NONAUTO W /O SCOPE CPT-4: 37801 03/05/2017 Vital Signs Date Vital 04/14/2018 Blood Pressure 1: 116/78 Code: 8480-6 BMI: 41.6 Code: 01153-4 Heart Rate 1: 72 bpm Height: 5'1" SpO2: 98% Weight: 220 lbs 01/18/2018 Blood Pressure 1: 132/74 Code: 8480-6 BMI: 43.5 Code: 39890-6 Heart Rate 1: 70 bpm Height: 5'1" SpO2: 97% Weight: 230 lbs 01/04/2018 Blood Pressure 1: 134/76 Code: 8480-6 BMI: 42.7 Code: 87593-5 Heart Rate 1: 83 bpm Height: 5'1" SpO2: 98% Weight: 226 lbs 09/23/2017 Blood Pressure 1: 124/76 Code: 8480-6 BMI: 42.3 Code: 53665-6 Heart Rate 1: 94 bpm Height: 5'1" SpO2: 96% Weight: 224 lbs 05/27/2017 Blood Pressure 1: 146/78 Code: 8480-6 BMI: 41.4 Code: 08793-7 Heart Rate 1: 85 bpm Height: 5'1" SpO2: 98% Weight: 219 lbs 02/24/2017 Blood Pressure 1: 138/66 Code: 8480-6 BMI: 41.4 Code: 19485-9 Heart Rate 1: 78 bpm Height: 5'1" SpO2: 97% Weight: 219 lbs 11/02/2016 Blood Pressure 1: 144/72 Code: 8480-6 BMI: 46.1 Code: 80489-9 Heart Rate 1: 78 bpm Height: 5'1" SpO2: 98% Weight: 244 lbs 09/30/2016 Blood Pressure 1: 130/76 Code: 8480-6 BMI: 45.0 Code: 24021-9 Heart Rate 1: 86 bpm Height: 5'1" SpO2: 98% Weight: 238 lbs 09/10/2016 Blood Pressure 1: 136/68 Code: 8480-6 BMI: 46.3 Code: 06769-5 Heart Rate 1: 83 bpm Height: 5'1" SpO2: 98% Weight: 245 lbs 08/20/2016 Blood Pressure 1: 142/78 Code: 8480-6 BMI: 45.3 Code: 83974-5 Heart Rate 1: 84 bpm Height: 5'1" SpO2: 99% Weight: 240 lbs 06/08/2016 Blood Pressure 1: 134/76 Code: 8480-6 BMI: 44.2 Code: 47251-0 Heart Rate 1: 86 bpm Height: 5'1" SpO2: 96% Weight: 234 lbs 04/02/2016 Blood Pressure 1: 142/70 Code: 8480-6 BMI: 44.6 Code: 85764-8 Heart Rate 1: 78 bpm Height: 5'1" SpO2: 97% Weight: 236 lbs 01/14/2016 Blood Pressure 1: 146/72 Code: 8480-6 BMI: 44.2 Code: 43284-0 Heart Rate 1: 86 bpm Height: 5'1" SpO2: 96% Weight: 234 lbs 10/02/2015 Blood Pressure 1: 158/76 Code: 8480-6 BMI: 44.2 Code: 31549-6 Heart Rate 1: 67 bpm Height: 5'1" SpO2: 97% Weight: 234 lbs 07/15/2015 Blood Pressure 1: 148/78 Code: 8480-6 Blood Pressure 1: 200/90 Code: 8480-6 BMI: 44.0 Code: 13797-1 Heart Rate 1: 89 bpm Height: 5'1" SpO2: 97% Weight: 233 lbs 06/10/2015 Blood Pressure 1: 140/82 Code: 8480-6 BMI: 44.0 Code: 67898-6 Heart Rate 1: 78 bpm Height: 5'1" [...] wearing crocs and there was a new german on the floor: her foot didn't move [...] Encounters Encounter Performer Loca tion Codes Date ([id number]) 13556 EST. 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 P ATIENT, LEVEL III Diagnosis: Localized edema[ICD10: R60.0] Diagnosis: Gastro-esophageal reflux disease without esophagitis[ICD10: K21.9] Edna Almanza MD, [facility] CPT-4: 80967 01/18/[phone]) 43453 EST. P ATIENT, LEVEL IV Diagnosis: Gastro-esophageal reflux disease without esophagitis[ICD10: K21.9] Diagnosis: Localized edema[ICD10: R60.0] Diagnosis: Essential (primary) hypertension[ICD10: I10] Diagnosis: Hypothyroidism, unspecified[ICD10: E03.9] Diagnosis: Impaired fasting glucose[ICD10: R73.01] Edna Almanza MD, [facility] CPT-4: 85905 01/04/2018 ([id number] 13301 EST. 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 PATIENT, LEVEL III Diagnosis: Pain in right hip[ICD10: M25.551] Nata Almanza MD, [facility] CPT-4: 48694 02/24/2017 ([id number]) 31088 EST. P ATIENT, LEVEL IV Diagnosis: Essential (primary) hypertension[ICD10: I10] Diagnosis: Localized edema[ICD10: R60.0] Diagnosis: Pain in right hip[ICD10: M25.551] Sarai Almanza MD, [facility] CPT-4: 42899 11/02/2016 ([id number]) 78554 EST. P ATIENT, LEVEL IV Diagnosis: Essential (primary) hypertension[ICD10: I10] Diagnosis: Localized edema[ICD10: R60.0] Sarai Almanza MD, [facility] CPT-4: 11718 09/30/2016 82588 EST. PATIENT, LEVEL IV Diagnosis: Localized edema[ICD10: R60.0] Diagnosis: Pain in joints of left hand[ICD10: M25.542] Diagnosis: Pain in joints of right hand[ICD10: M25.541] Nata Almanza MD, [facility] CPT-4: 00912 09/10/2016 45469 EST. PATIENT, LEVEL IV Diagnosis: Localized edema[ICD10: R60.0] Diagnosis: Pain in joints of left hand[ICD10: M25.542] Diagnosis: Pain in joints of right hand[ICD10: M25.541] Diagnosis: Other fatigue[ICD10: R53.83] Nata Almanza MD, [facility] CPT-4: 17251 08/20/2016 31630 EST. 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 PATIENT, LEVEL IV Diagnosis: Other allergic rhinitis[ICD10: J30.89] Diagnosis: Acute laryngopharyngitis[ICD10: J06.0] Nata Almanza MD, [facility] CPT-4: 78451 04/02/2016 53985 EST. PATIENT, LEVEL IV Diagnosis: Left upper quadrant pain[ICD10: R10.12] Nata Almanza MD, [facility] CPT-4: 96686 01/14/2016 71540 EST. PATIENT, LEVEL IV Diagnosis: Pain in left shoulder[ICD10: M25.512] Diagnosis: Body mass index (BMI) 40.0-44.9, adult[ICD10: Z68.41] Nata Almanza MD, [facility] CPT-4: 30790 10/02/2015 32139 EST. PATIENT, LEVEL IV Diagnosis: Pain in left leg[ICD10: M79.605] Diagnosis: Other longterm (current) drug therapy[ICD10: Z79.899] Nata Almanza MD, [facility] CPT-4: 33182 07/15/2015 ([id number]) 43030 EST. 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: Other longterm (current) drug therapy[ICD10: Z79.899] [facility] CPT-4: 17142 06/10/2015 ([id number]) [facility] [place] - LEVEL 4 Diagnosis: ESSENTIAL HYPERTENSION[ICD9: 401.9] Diagnosis: HYPOTHYROIDISM[ICD9: 244.9] Diagnosis: ENCNTR LONG-RX USE NEC[ICD9: V58.69] Diagnosis: HYPERLIPIDEMIA[ICD9: 272.4] Diagnosis: Vitamin B12 deficiency[ICD9: 266.2] Diagnosis: Status post gastric surgery[ICD9: V45.89] Diagnosis: Snoring[ICD9: 786.09] [facility] CPT-4: 62448 01/22/2015 Plan of Care Planned Activity Notes [...] A1C 04/14/2018 Appointment: Edna Douglas WPtel: [facility] [place] [phone] (15 min) Moderate 04/14/2018 Patient Education: Patient [...] to further attempt to reduce peripheral edema. CYED-zofvixjn-wnbayvdr prilosec BID and carafate QID -discussed low spice, low acidic diet 01/18/2018 Appointment: Edna Douglas WPtel: [facility]0 [phone] (15 min) Moderate 01/18/2018 Patient Education: [...] control. 01/04/2018 Appointment: Ed[facility] Douglas WPtel[phone] (30 min) Complex 01/04/2018 Patient Education: Patient Medication Summary Completed 01/04/2018 Care Plan: SCREENINGMAMMOGRAPHYDIGITAL LOINC : 64261-1 Pending 01/04/2018 Visit Plan: Abdominal hernia - not able to be taken to surgery by local providers and pt has been seen at [facility] and that surgeon felt like [...] medications. 05/27/2017 App[facility]ment: [phone] (30 min) Complex 05/27/2017 Patient Education: [...] Dr. Palacios. 02/24/2017 Appointment: N[facility]el[facility] [phone] [facility] (30 min) Complex 02/24/2017 Patient Education: [...] dr. Chaney. 11/02/2016 App[facility]ment: [phone] (15 min) Moderate 11/02/2016 Patient Education: Patient [...] peripheral edema. 09/30/2016 Appointment: Sarai Almanza WPtel: [phone] [facility] (15 min) Moderate 09/30/2016 Patient [...] edema. 09/10/2016 Appointment: Nata Hsu WPtel: [facility]5 [facility] (30 min) Complex 09/10/2016 Patient Education: [...] edema. 08/20/2016 Appointment: Nata Hsu WPtel: [phone] [facility] (30 min) Complex 08/20/2016 Patient Education: Patient Medication Summary Completed 08/20/2016 Referral: Otf Lee [id number] [place] Referral Initiated 07/02/2016 Visit Plan: Chronic [...] 06/08/2016 Care Plan: Referral Order SNOMED-CT : [id number] Pending 06/08/2016 Visit Plan: URI - Pt [...] spray. 04/02/2016 Appointment: Nata Hsu WPtel[facility] (30 min) Complex 04/02/2016 Patient Education: [...] pain 01/14/2016 Appointment: Edna Douglas WPtel: [facility]5 [phone] [place] (30 min) Complex 01/14/2016 Patient Education: Patient Medication Summary Completed 01/14/2016 Patient Education: Obesity Completed 01/14/2016 Care Plan: BMI Above normal followup DAVID F-MGMT EDUC & TRAIN 1 PT Pending 10/24/2015 Care Plan: X-RAY EXAM OF SHOULDER LOINC : 48434-6 Pending 10/24/2015 Visit Plan: Left shoulder pain [...] check. 10/02/2015 Appointment: [facility] Douglas [facility]el[facility] [phone] [phone] (15 min) Moderate 10/02/2015 Patient Education: [...] Completed 06/10/2015 Appointment: Sarai Almanza WPtel: [facility]4 [facility] (15 min) Moderate 04/22/2015 Visit Plan: Hypertension [...] have surgical fixation - planning occurring at [facility]. Snoring - Sleep apnea symptoms [...] medications. 01/22/2015 Appointment: Sarai Almanza WPtel: [facility]0 [facility] [place] (S) New Patient 01/22/2015 Patient Education: Patient Medication Summary Completed 01/22/2015 Patient Education: Hypertension Completed 01/22/2015 Referral: Otf Lee [facility] Referral Initiated Instructions Comment . Chronic Anticoagul [...] providers and pt has been seen at [facility] and that surgeon felt like Kat would be better served by Dr. Betancur at [facility]. I have recommended a referral to dr. [...] to further attempt to reduce peripheral edema. FWJH-kqjiezzq-bmxvxbwk prilosec BID and carafate QID -discussed low [...] have surgical fixation - planning occurring at [facility]. Snoring - Sleep apnea symptoms [...]
--- OUTSIDE RECORDS SUMMARY | 2020-01-16 23:27 | XMS REPORT | CCD ---
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 Name Role Phone PP Unavailable CCM Unavailable Summary Purpose Interface Exchange Insurance Providers Payer name Policy type / Coverage type Covered constitution party ID Effective Begin Date Effective End Date WPS Medicare Part B Medicare Part B [id number] 2017 Unknown [employer] Medicare Part B [id number] 2017 Unknown Family history Father Diagnosis Age At Onset Hyperlipidemia Unknown Heart Attack Unknown Mother Diagnosis Age At Onset Arthritis Unknown Social History Social History Element Codes Description Effective Dates Marital status Unknown M arried Nathan 09/30/2016 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 Number of children Unknown 3 01/22/[address]: 569221988 Never smoker 01/22/[address]: 980985935 Never drinks alcohol 01/22/2015 Allergies, Adverse Reactions, [...] ICD-9: 790.21 ICD-10: R73.01 Active 05/27/2017 Unknown skilled nursing (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 [...] ICD-10: R53.83 Active 08/20/2016 Unknown 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 ICD-9: V58.69 ICD-10: [...] cose ICD-9: 790.21 ICD-10: R73.01 05/27/2017 Active 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 ICD-9: V58.61 ICD-10: [...] 780.79 ICD-10: R53.83 08/20/2016 Active 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 ICD-9: V58.69 ICD-10: [...] Fill Instructions Lipitor 40 mg tablet RxNorm: 256496 TAKE ONE TABLET BY MOUTH DAILY 07/29/2018 07/23/2019 Ac tive Carafate 1 gram tablet RxNorm: 506748 TAKE ONE TABLET BY MOUTH BEFORE MEALS AN D AT BEDTIME 07/28/2018 09/17/2018 Active Coumadin 4 mg tablet RxNorm: 638582 2 Tablet(s) daily 07/11/2018 02/05/2019 Active Generi c For:COUMADIN 4MG 07/22/2017 8:58:26 AM Coumadin 5 mg tablet RxNorm: 041308 Tablet(s) TAKE 1 TABLET BY MOUTH DIRE CTED 07/08/2018 01/03/2019 Ac tive Generic For:COUMADIN 5MG TAB 03/21/2018 9:13:00 AM Coumadin 1 mg tablet RxNorm: 191375 1 Tablet(s) PO daily 07/08/2018 08/06/2018 Active Coumadin 4 mg tablet RxNorm: 697269 Tablet(s) TAKE 1 TABLET BY MOUTH THREE T IMES PER WEEK (WEDNESDAY, WEDNESDAY AND WEDNESDAY) 07/08/2018 07/10/2018 Inactive Gene andre For:COUMADIN 4MG 07/22/2017 8:58:26 AM venlafaxine ER 75 mg capsule,extended release 24 hr RxNorm: 592213 Capsule(s) TAKE 1 CAPSULE BY MOUTH ONCE DAILY 06/23/2018 06/17/2019 Active Generic For:*EFFEXOR XR 75MG 06/19/2017 12:23:45 PM sodium bicarbonate 6 50 mg tablet RxNorm: 112076 Tablet(s) TAKE 2 TABL ETS BY MOUTH TWICE DAILY 06/23/2018 12/19/2018 Active 12/20/2017 9:10:59 AM Coumadin 1 mg tablet RxNorm: 098942 1 Tablet(s) PO daily 06/17/2018 07/07/2018 Inactive Coumadin 1 mg tablet RxNorm: 038955 1 Tablet(s) PO daily 06/17/2018 06/16/2018 Inactive clonazepam 0.5 mg ta blet RxNorm: 616130 1 Tablet(s) PO BID 06/08/2018 11/04/2018 Active Synthroid 137 mcg ta blet RxNorm: 833385 TAKE 1 TABLET BY MOUT H ONCE DAILY 05/18/2018 11/13/2018 Ac tive Generic For:SYNTHROID 137MCG TAB 2017 8:57:54 AM spironolactone 25 mg tablet RxNorm: 045394 TAKE 1 TABLET BY MOUT H EVERY DAY 05/18/2018 05/12/2019 Ac tive Generic For:*ALDACTONE 25MG 05/18/2018 8:57:50 AM Carafate 1 gram tablet RxNorm: 651785 TAKE ONE TABLET BY MOUTH BEFORE MEALS AN D AT BEDTIME 05/18/2018 07/12/2018 Inactive Generic For:CARAFATE 1GM 1 07/18/2017 8:38:28 AM allopurinol 300 mg t ablet RxNorm: 823225 TAKE 1 TABLET BY MOUT H ONCE DAILY. 04/18/2018 10/14/2018 Ac tive Generic For:ZYLOPRIM 300 MG TABLET 03/22 9:13:47 AM Lasix 20 mg tablet RxNorm: 456056 TAKE ONE TABLET BY MOUTH DAILY 04/18/2018 08/15/2018 Ac tive Generic For:LASIX 20MG 04/18/2018 9:13: 50 AM Carafate 1 gram tablet RxNorm: 365903 TAKE ONE TABLET BY MOUTH BEFORE MEALS AN D AT BEDTIME 04/18/2018 05/17/2018 Inactive Generic For:CARAFATE 1GM 1 9:32:51 AM Coumadin 5 mg tablet RxNorm: 118430 TAKE 1 TABLET BY MOUTH DIRECTED 03/21/2018 07/07/2018 In active Generic For:COUMADIN 5MG TAB 03/21/2018 9:13:00 AM Carafate 1 gram tablet RxNorm: 936707 TAKE ONE TABLET BY MOUTH BEFORE MEALS AN D AT BEDTIME 03/21/2018 04/17/2018 Inactive Generic For:CARAFATE 1GM 1 9:14:24 AM Carafate 1 gram tablet RxNorm: 063345 1 Tablet(s) PO AC & HS 02/17/2018 03/20/2018 Inactive atenolol 100 mg tablet RxNorm: 184163 1 Tablet(s) PO daily 02/04/2018 09/01/2018 Active atenolol 50 mg tablet RxNorm: 965343 1 Tablet(s) PO daily 02/03/2018 02/03/2018 Inactive omeprazole 20 mg cap sean,delayed release RxNorm: 977600 1 Capsule(s) BID 01/21/2018 01/15/2019 Ac tive Generic For:PRILOSEC 20MG 07/22/2017 8:5 8:20 AM Carafate 1 gram tablet RxNorm: 279919 1 Tablet(s) PO AC & HS 01/21/2018 02/16/2018 Inactive Carafate 1 gram tablet RxNorm: 806087 1 Tablet(s) PO AC & HS 01/18/2018 01/20/2018 Inactive Carafate 1 gram tablet RxNorm: 518310 1 Tablet(s) PO AC & HS 01/18/2018 02/27/2018 Inactive Carafate 1 gram tablet RxNorm: 832089 1 Tablet(s) PO AC & HS TAKE ONE TABLET B Y MOUTH TWICE DAILY 01/18/2018 05/17/2018 Inactive Generic For:CARAFATE 1GM 0 12/20/2017 9:10:56 AM omeprazole 20 mg cap sean,delayed release RxNorm: 252481 Capsule(s) TAKE 1 CAP SEAN BY MOUTH EVERY DAY 01/17/2018 01/20/2018 Inactive Generic For:PRILOSEC 20MG 0 07/22/2017 8:58:20 AM omeprazole 20 mg cap esan,delayed release RxNorm: 831157 Capsule(s) TAKE 1 CAP SEAN BY MOUTH EVERY DAY 01/14/2018 01/16/2018 Inactive Generic For:PRILOSEC 20MG 07/22/2017 8:58:20 AM Plavix 75 mg tablet RxNorm: 193629 1 Tablet(s) PO daily 01/07/2018 07/05/2018 Inactive clonazepam 0.5 mg ta blet RxNorm: 504110 1 Tablet(s) PO BID 01/07/2018 06/05/2018 Inactive Carafate 1 gram tablet RxNorm: 406510 1 Tablet(s) PO AC & HS 01/04/2018 01/17/2018 Inactive Lasix 20 mg tablet RxNorm: 540842 TAKE ONE TABLET BY MOUTH DAILY 12/20/2017 04/17/2018 In active Generic For:LASIX 20MG 12/20/2017 9:11: 03 AM sodium bicarbonate 6 50 mg tablet RxNorm: 654064 TAKE 2 TABLETS BY JAVON TH TWICE DAILY 12/20/2017 06/17/2018 In active 12/20/2017 9:10:59 AM Carafate 1 gram tablet RxNorm: 704204 TAKE ONE TABLET BY MOUTH TWICE DAILY 12/20/2017 01/17/2018 In active Generic For:CARAFATE 1GM 12/20/2017 9:1 0:56 AM Synthroid 137 mcg ta blet RxNorm: 922158 TAKE 1 TABLET BY MOUT H ONCE DAILY 11/19/2017 05/17/2018 In active Generic For:SYNTHROID 137MCG TAB 2017 8:58:04 AM Detrol LA 4 mg capsu le,extended release RxNorm: 793839 TAKE 1 CAPSULE BY JAVON TH ONCE DAILY 10/20/2017 04/13/2018 Inactive Generic For:DETROL LA 4MG C AP 10/20/2017 9:01:56 AM allopurinol 300 mg t ablet RxNorm: 788388 TAKE 1 TABLET BY MOUT H ONCE DAILY. 10/20/2017 04/17/2018 In active Generic For:ZYLOPRIM 300 MG TABLET 07/2017 9:01:59 AM Coumadin 5 mg tablet RxNorm: 000457 1 Tablet(s) PO UD 10/01/2017 03/20/2018 Inactive cyclobenzaprine 5 mg tablet RxNorm: 489862 1 Tablet(s) PO TID as needed myscle spasm 09/23/2017 10/12/2017 Inactive Lipitor 40 mg tablet RxNorm: 475736 TAKE 1 TABLET BY MOUTH ONCE DAILY 09/20/2017 07/28/2018 In active Generic For:LIPITOR 40MG 09/20/2017 8:5 6:04 AM atenolol 100 mg tablet RxNorm: 414513 1 Tablet(s) PO daily 08/30/2017 02/03/2018 Inactive atenolol 50 mg tablet RxNorm: 735026 1 Tablet(s) PO daily 08/30/2017 08/30/2017 Inactive Lovenox 30 mg/0.3 mL subcutaneous syringe RxNorm: 611797 0.3 Milliliter(s) SQ Q12H 08/24/2017 09/06/2017 In active Lasix 20 mg tablet RxNorm: 328615 TAKE ONE TABLET BY MOUTH DAILY 08/23/2017 12/19/2017 In active Generic For:LASIX 20MG 08/21/2017 9:04: 27 AM Synthroid 137 mcg ta blet RxNorm: 289828 TAKE 1 TABLET BY MOUT H ONCE DAILY 08/23/2017 11/18/2017 In active Generic For:SYNTHROID 137MCG TAB 2017 9:04:30 AM Lovenox 30 mg/0.3 mL subcutaneous syringe RxNorm: 950644 0.3 Milliliter(s) SQ Q12H 08/10/2017 08/23/2017 In active clonazepam 0.5 mg ta blet RxNorm: 534461 1 Tablet(s) PO BID 08/04/2017 12/30/2017 Inactive Coumadin 4 mg tablet RxNorm: 593802 TAKE 1 TABLET BY MOUTH THREE TIMES PER W ZUNI (WEDNESDAY, WEDNESDAY AND WEDNESDAY) 07/22/2017 02/16/2018 Inactive Generic For:COUMADIN 4MG 07/22/2017 8:58:26 AM omeprazole 20 mg cap sean,delayed release RxNorm: 837407 TAKE 1 CAPSULE BY JAVON TH EVERY DAY 07/22/2017 01/13/2018 Inactive Generic For:PRILOSEC 20MG 07/22/2017 8: 58:20 AM Coumadin 4 mg tablet RxNorm: 682516 TAKE 1 TABLET BY MOUTH THREE TIMES PER W ZUNI (WEDNESDAY, WEDNESDAY AND WEDNESDAY) 07/22/2017 02/16/2018 Inactive Generic For:COUMADIN 4MG 07/22/2017 8:58:26 AM sodium bicarbonate 6 50 mg tablet RxNorm: 950437 TAKE 2 TABLETS BY JAVON TH TWICE DAILY 06/22/2017 12/18/2017 In active 06/19/2017 12:23:30 PM venlafaxine ER 75 mg capsule,extended release 24 hr RxNorm: 442517 TAKE 1 CAPSULE BY MOUTH ONCE DAILY 06/22/2017 06/16/2018 Inactive Generic For:*EFFEXOR XR 75M G 06/19/2017 12:23:45 PM Coumadin 5 mg tablet RxNorm: 325474 1 Tablet(s) PO UD 06/01/2017 09/30/2017 Inactive Keflex 500 mg capsule RxNorm: 176431 1 Capsule(s) PO TID 05/27/2017 06/02/2017 Inactive Synthroid 137 mcg ta blet RxNorm: 065238 TAKE 1 TABLET BY MOUT H ONCE DAILY 05/24/2017 08/21/2017 In active Generic For:SYNTHROID 137MCG TAB 2016 8:55:59 AM Carafate 1 gram tablet RxNorm: 224763 TAKE ONE TABLET BY MOUTH TWICE DAILY 05/24/2017 12/19/2017 In active Generic For:CARAFATE 1GM 05/24/2017 8:5 5:54 AM spironolactone 25 mg tablet RxNorm: 002187 1 Tablet(s) PO daily 05/24/2017 05/17/2018 Inactive Detrol LA 4 mg capsu le,extended release RxNorm: 496142 1 Capsule(s) PO daily TAKE 1 CAPSULE BY MOUTH ONCE DAILY 05/10/2017 10/19/2017 Inactive Generic For:DETROL LA 4MG CAP 02/19/2017 2:36:00 PM Lasix 20 mg tablet RxNorm: 867614 TAKE ONE TABLET BY MOUTH DAILY 04/23/2017 08/20/2017 In active Generic For:LASIX 20MG 04/23/2017 9:04: 01 AM Coumadin 4 mg tablet RxNorm: 666765 TAKE 1 TABLET BY MOUTH THREE TIMES PER W ZUNI (WEDNESDAY, WEDNESDAY AND WEDNESDAY) 04/23/2017 07/21/2017 Inactive Generic For:COUMADIN 4MG 04/23/2017 9:04:05 AM allopurinol 300 mg t ablet RxNorm: 227242 TAKE 1 TABLET BY MOUT H ONCE DAILY. 04/23/2017 10/19/2017 In active Generic For:ZYLOPRIM 300 MG TABLET 08/2016 9:03:57 AM potassium chloride 2 0 mEq/15 mL oral liquid RxNorm: 469621 Milliliter(s) 30 Milliliter(s) (40mEq) PO daily 03/24/2017 07/21/2017 Inactive Lovenox 30 mg/0.3 mL subcutaneous syringe RxNorm: 366823 0.3 Milliliter(s) SQ Q12H 03/22/2017 03/26/2017 In active Lovenox 30 mg/0.3 mL subcutaneous syringe RxNorm: 172041 0.3 Milliliter(s) SQ Q12H 03/19/2017 03/20/2017 In active Lovenox 30 mg/0.3 mL subcutaneous syringe RxNorm: 842665 0.3 Milliliter(s) SQ Q12H 03/16/2017 03/18/2017 In active clonazepam 0.5 mg ta blet RxNorm: 526331 1 Tablet(s) PO BID 03/02/2017 07/28/2017 Inactive Lovenox 30 mg/0.3 mL subcutaneous syringe RxNorm: 473468 1 injection SQ BID do NOT take the night time dose the day before surgery, or the morning dose the day of surgery 03/01/2017 03/07/2017 Inactive Lovenox 30 mg/0.3 mL subcutaneous syringe RxNorm: 076451 1 injection SQ BID 03/01/2017 02/28/2017 In active Detrol LA 4 mg capsu le,extended release RxNorm: 998223 TAKE 1 CAPSULE BY JAVON TH ONCE DAILY 02/19/2017 05/09/2017 Inactive Generic For:DETROL LA 4MG C AP 02/19/2017 2:36:00 PM hydrocodone 5 mg-humberto taminophen 325 mg tablet RxNorm: 122094 1-2 Tablet(s) PO Q6 P RN 02/04/2017 No Stop Date Active Zetia 10 mg tablet RxNorm: 582463 TAKE 1 TABLET BY MOUTH DAILY 01/25/2017 04/13/2018 Inactive 01/23/2017 9:03:48 AM omeprazole 20 mg cap sean,delayed release RxNorm: 869745 TAKE 1 CAPSULE BY JAVON TH EVERY DAY 01/25/2017 07/21/2017 Inactive Generic For:PRILOSEC 20MG 01/23/2017 9: 03:45 AM Coumadin 4 mg tablet RxNorm: 656330 TAKE 1 TABLET BY MOUTH THREE TIMES PER W ZUNI (WEDNESDAY, WEDNESDAY AND WEDNESDAY) 01/25/2017 04/22/2017 Inactive Generic For:COUMADIN 4MG 01/23/2017 9:03:51 AM sodium bicarbonate 6 50 mg tablet RxNorm: 890390 TAKE 2 TABLETS BY JAVON TH TWICE DAILY 12/24/2016 06/21/2017 In active 12/24/2016 9:09:27 AM Lasix 20 mg tablet RxNorm: 430622 1 Tablet(s) PO daily 12/24/2016 04/22/2017 Inactive Synthroid 137 mcg ta blet RxNorm: 631757 TAKE 1 TABLET BY MOUT H ONCE DAILY 11/24/2016 05/22/2017 In active Generic For:SYNTHROID 137MCG TAB 2016 9:04:37 AM Coumadin 4 mg tablet RxNorm: 886673 TAKE 1 TABLET BY MOUTH THREE TIMES PER W ZUNI (WEDNESDAY, WEDNESDAY AND WEDNESDAY) 11/24/2016 01/22/2017 Inactive Generic For:COUMADIN 4MG 11/24/2016 9:04:41 AM hydrocodone 5 mg-humberto taminophen 325 mg tablet RxNorm: 200767 1-2 Tablet(s) PO Q6 P RN 11/17/2016 02/03/2017 In active Carafate 1 gram tablet RxNorm: 422120 TAKE ONE TABLET BY MOUTH TWICE DAILY 10/27/2016 05/23/2017 In active Generic For:CARAFATE 1GM 10/26/2016 8:3 9:42 AM allopurinol 300 mg t ablet RxNorm: 422842 Tablet(s) TAKE 1 TABL ET BY MOUTH ONCE DAILY. 10/26/2016 04/22/2017 Inactive Lipitor 40 mg tablet RxNorm: 203938 1 Tablet(s) PO daily 09/25/2016 09/19/2017 Inactive Coumadin 4 mg tablet RxNorm: 356396 TAKE 1 TABLET BY MOUTH THREE TIMES PER W ZUNI (WEDNESDAY, WEDNESDAY AND WEDNESDAY) 09/25/2016 11/23/2016 Inactive Generic For:COUMADIN 4MG 09/25/2016 8:55:58 AM Zetia 10 mg tablet RxNorm: 580350 1 Tablet(s) PO daily 09/25/2016 01/22/2017 Inactive gave 1 month of samples clonazepam 0.5 mg ta blet RxNorm: 176305 1 Tablet(s) PO BID 09/21/2016 02/16/2017 Inactive Lasix 20 mg tablet RxNorm: 268572 1 Tablet(s) PO daily 09/15/2016 12/23/2016 Inactive potassium chloride 2 0 mEq/15 mL oral liquid RxNorm: 699745 Milliliter(s) 30 Milliliter(s) (40mEq) PO daily 09/15/2016 01/12/2017 Inactive Lasix 20 mg tablet RxNorm: 839821 2 Tablet(s) PO daily 09/10/2016 09/12/2016 Inactive Lasix 20 mg tablet RxNorm: 094549 1 Tablet(s) PO daily 08/28/2016 08/30/2016 Inactive Lasix 20 mg tablet RxNorm: 185546 1 Tablet(s) PO daily 08/20/2016 08/22/2016 Inactive Detrol LA 4 mg capsu le,extended release RxNorm: 048305 TAKE 1 CAPSULE BY JAVON TH ONCE DAILY 07/27/2016 02/18/2017 Inactive Generic For:DETROL LA 4MG C AP 07/27/2016 9:08:27 AM Coumadin 4 mg tablet RxNorm: 523188 1 Tablet(s) PO 3 x week wed and sun 07/27/2016 09/24/2016 In active omeprazole 20 mg cap sean,delayed release RxNorm: 294400 Capsule(s) PO TAKE 1 CAPSULE BY MOUTH ONCE DAILY 07/27/2016 01/22/2017 Inactive venlafaxine ER 75 mg capsule,extended release 24 hr RxNorm: 246215 1 Capsule(s) PO daily 06/29/2016 06/21/2017 Inactive sodium bicarbonate 6 50 mg tablet RxNorm: 612792 TAKE 2 TABLETS BY JAVON TH TWICE DAILY 06/29/2016 12/23/2016 In active 06/27/2016 9:05:39 AM Coumadin 4 mg tablet RxNorm: 573699 1 Tablet(s) PO 3 x week wed and sun 06/09/2016 06/08/2016 In active Coumadin 4 mg tablet RxNorm: 344648 1 Tablet(s) PO 3 x week wed and sun 06/09/2016 07/26/2016 In active Zetia 10 mg tablet RxNorm: 815372 1 Tablet(s) PO daily 06/09/2016 06/08/2016 Inactive gave 1 month of samples Zetia 10 mg tablet RxNorm: 635898 1 Tablet(s) PO daily 06/09/2016 09/24/2016 Inactive gave 1 month of samples Effexor 75 mg tablet RxNorm: 061071 1 Tablet(s) PO daily 06/08/2016 06/28/2016 Inactive spironolactone 25 mg tablet RxNorm: 739835 1 Tablet(s) PO daily 06/08/2016 05/23/2017 Inactive Synthroid 137 mcg ta blet RxNorm: 827355 1 Tablet(s) PO daily 05/07/2016 11/02/2016 Inactive allopurinol 300 mg t ablet RxNorm: 869139 Tablet(s) TAKE 1 TABL ET BY MOUTH ONCE DAILY. 04/28/2016 10/24/2016 Inactive clonazepam 0.5 mg ta blet RxNorm: 483188 1 Tablet(s) PO BID 04/20/2016 09/15/2016 Inactive Flonase Allergy Reli ef 50 mcg/actuation nasal spray,suspension RxNorm: 9063571 1 [place]ague NASAL BID 04/02/2016 No Stop Date Active Zithromax Z-Thomas 250 mg tablet RxNorm: 006190 Tablet(s) PO 04/02/2016 08/27/2016 Inactive cetirizine 10 mg tablet RxNorm: 9087045 1 Tablet(s) PO daily 04/02/2016 05/01/2016 Inactive Carafate 1 gram tablet RxNorm: 297111 Tablet(s) TAKE 1 TABLET TWICE A DAY FOR 30 DAYS 03/30/2016 10/25/2016 Inactive Generic For:CARAFATE 1GM 02/08/2015 12:3 6:39 PM Plavix 75 mg tablet RxNorm: 495553 1 Tablet(s) PO daily 03/11/2016 09/06/2016 Inactive sodium bicarbonate 6 50 mg tablet RxNorm: 712850 Tablet(s) 2 Tablet(s) PO BID 02/28/2016 06/26/2016 In active omeprazole 20 mg cap sean,delayed release RxNorm: 517434 Capsule(s) PO TAKE 1 CAPSULE BY MOUTH ONCE DAILY 01/31/2016 07/26/2016 Inactive Fish Oil 1,000 mg ca psule RxNorm: 1 Capsule(s) PO BID 01/14/2016 No Stop Date Active Synthroid 137 mcg ta blet RxNorm: 527863 1 Tablet(s) PO daily 01/14/2016 05/06/2016 Inactive Detrol LA 4 mg capsu le,extended release RxNorm: 571203 TAKE 1 CAPSULE BY JAVON TH ONCE DAILY 12/30/2015 07/26/2016 Inactive Generic For:DETROL LA 4MG C AP 12/30/2015 9:11:01 AM potassium chloride 2 0 mEq/15 mL oral liquid RxNorm: 288844 Milliliter(s) 30 Milliliter(s) (40mEq) PO daily 12/02/2015 03/30/2016 Inactive sodium bicarbonate 6 50 mg tablet RxNorm: 372244 Tablet(s) 2 Tablet(s) PO BID 10/31/2015 02/27/2016 In active Lipitor 40 mg tablet RxNorm: 689858 1 Tablet(s) PO daily 10/09/2015 09/24/2016 Inactive sodium bicarbonate 6 50 mg tablet RxNorm: 258044 2 Tablet(s) PO BID 10/01/2015 10/30/2015 Inactive allopurinol 300 mg t ablet RxNorm: 104701 TAKE 1 TABLET BY MOUT H ONCE DAILY. 10/01/2015 04/27/2016 In active Generic For:ZYLOPRIM 300 MG TABLET 09/19 9:21:15 AM clonazepam 0.5 mg ta blet RxNorm: 575967 1 Tablet(s) PO BID 09/30/2015 04/19/2016 Inactive Coumadin 5 mg tablet RxNorm: 345988 1 Tablet(s) PO daily 09/27/2015 05/31/2017 Inactive Generic For:COUMADIN 5MG TAB N O T I C E PRESCRIPTION PREVIOUSLY AUTHORIZED BY DOCTOR:BOBBY ZULETA Synthroid 125 mcg ta blet RxNorm: 052006 1 Tablet(s) PO daily 09/27/2015 09/26/2015 Inactive Synthroid 125 mcg ta blet RxNorm: 909807 1 Tablet(s) PO daily 09/27/2015 01/13/2016 Inactive Carafate 1 gram tablet RxNorm: 975662 Tablet(s) TAKE 1 TABLET TWICE A DAY FOR 30 DAYS 09/02/2015 03/29/2016 Inactive Generic For:CARAFATE 1GM 02/08/2015 12:3 6:39 PM sodium bicarbonate 6 50 mg tablet RxNorm: 527689 2 Tablet(s) PO BID 09/02/2015 09/30/2015 Inactive Prilosec 20 mg capsu le,delayed release RxNorm: 876587 TAKE 1 CAPSULE BY JAVON TH ONCE DAILY 08/02/2015 01/28/2016 Inactive Generic For:PRILOSEC 20MG 08/02/2015 10:03:09 AM N O T I C E PRESCRIPTION PREVIOUSLY AUTHORIZED BY DOCTOR:BOBBY ZULETA Zyrtec 10 mg capsule RxNorm: 7205659 1 Capsule(s) PO daily 07/15/2015 08/13/2015 Inactive Keflex 500 mg capsule RxNorm: 312038 1 Capsule(s) PO TID 07/15/2015 07/21/2015 Inactive cetirizine 10 mg cap sean RxNorm: 0391531 1 Capsule(s) PO daily 07/15/2015 08/13/2015 Inactive hydrocodone 5 mg-humberto taminophen 325 mg tablet RxNorm: 785067 1-2 Tablet(s) PO Q6 P RN 06/10/2015 11/16/2016 In active sodium bicarbonate 6 50 mg tablet RxNorm: 416234 2 Tablet(s) PO BID 06/03/2015 08/31/2015 Inactive Detrol LA 4 mg capsu le,extended release RxNorm: 979028 TAKE 1 CAPSULE BY JAVON TH ONCE DAILY 06/03/2015 12/29/2015 Inactive Generic For:DETROL LA 4MG C AP N O T I C E PRESCRIPTION PREVIOUSLY AUTHORIZED BY DOCTOR:BOBBY ZULETA atenolol 50 mg tablet RxNorm: 050420 1 Tablet(s) PO daily TAKE 1 TABLET BY MO UTH DAILY 05/07/2015 08/23/2017 Inactive Generic For:TENORMIN 50MG 05/04/2015 9:07:22 AM spironolactone 25 mg tablet RxNorm: 800331 1 Tablet(s) PO daily 05/06/2015 06/07/2016 Inactive venlafaxine ER 75 mg capsule,extended release 24 hr RxNorm: 836145 1 Capsule(s) PO daily 05/04/2015 06/28/2016 Inactive atenolol 50 mg tablet RxNorm: 576629 TAKE 1 TABLET BY MOUTH DAILY 05/04/2015 05/06/2015 Inactive Generic For:TENORMIN 50MG 05/04/2015 9: 07:22 AM Synthroid 150 mcg ta blet RxNorm: 062531 TAKE 1 TABLET BY MOUT H ONCE DAILY. 04/05/2015 09/26/2015 In active Generic For:SYNTHROID 150MCG TAB 2014 4:45:40 PM N O T I C E PRESCRIPTION PREVIOUSLY AUTHORIZED BY DOCTOR:BOBBY ZULETA Effexor 75 mg tablet RxNorm: 855552 1 Tablet(s) PO daily 04/05/2015 07/03/2015 Inactive Coumadin 5 mg tablet RxNorm: 413713 TAKE 1 AND 1/2 TABLETS BY MOUTH ONCE MYRANDA LY 04/04/2015 09/26/2015 In active Generic For:COUMADIN 5MG TAB N O T I C E PRESCRIPTION PREVIOUSLY AUTHORIZED BY DOCTOR:BOBBY ZULETA clonazepam 0.5 mg ta blet RxNorm: 838038 1 Tablet(s) PO BID 03/13/2015 11/05/2015 Inactive sodium bicarbonate 6 50 mg tablet RxNorm: 312677 2 Tablet(s) PO BID 03/08/2015 06/02/2015 Inactive allopurinol 300 mg t ablet RxNorm: 428738 TAKE 1 TABLET BY MOUT H ONCE DAILY. 03/05/2015 09/30/2015 In active N O T I C E PRESCRIPTION PREVIOUSLY A UTHORIZED BY DOCTOR:BOBBY ZULETA Plavix 75 mg tablet RxNorm: 225557 1 Tablet(s) PO daily 02/12/2015 09/09/2015 Inactive clonazepam 0.5 mg ta blet RxNorm: 088143 1 Tablet(s) PO BID 02/11/2015 03/11/2015 Inactive Carafate 1 gram tablet RxNorm: 556368 TAKE 1 TABLET TWICE A DAY FOR 30 DAYS 02/08/2015 02/07/2015 In active Generic For:CARAFATE 1GM 02/08/2015 12:3 6:39 PM Carafate 1 gram tablet RxNorm: 734635 Tablet(s) TAKE 1 TABLET TWICE A DAY FOR 30 DAYS 02/08/2015 09/01/2015 Inactive Generic For:CARAFATE 1GM 02/08/2015 12:3 6:39 PM potassium chloride 2 0 mEq/15 mL oral liquid RxNorm: 388926 30 Milliliter(s) (40m Eq) PO daily 02/05/2015 12/01/2015 Inactive atenolol 50 mg tablet RxNorm: 007163 1 Tablet(s) PO daily 02/04/2015 05/03/2015 Inactive [SAVINGS FOR NON-COVERED DRUGS -- BIN: 3585, PCN: [id number], Group: XXXXX, ID# XXXXXXX, Questions: . THIS IS NOT INSURANCE.] potassium chloride 2 0 mEq/15 mL oral liquid RxNorm: 938207 30 Milliliter(s) (40m Eq) PO daily 01/08/2015 02/04/2015 Inactive potassium chloride 2 0 mEq/15 mL oral liquid RxNorm: 157113 30 Milliliter(s) (40m Eq) PO daily 12/07/2014 01/07/2015 Inactive atenolol 50 mg tablet RxNorm: 114027 1 Tablet(s) PO daily 11/09/2014 11/08/2014 Inactive atenolol 50 mg tablet RxNorm: 588348 1 Tablet(s) PO daily 11/09/2014 02/03/2015 Inactive [SAVINGS FOR NON-COVERED DRUGS -- BIN:3584, PCN: [id number], Group: XXXXX, ID# [id number], Questions: . THIS IS NOT INSURANCE.] Voltaren 1 % topical gel RxNorm: 127956 TOP No St art Date Active verapamil ER (HS) 24 0 mg tablet,extended release 24 hr RxNorm: 106925 1 Tablet(s) PO daily No Start Date Active aspirin 81 mg tablet RxNorm: 537062 1 Tablet(s) PO daily No Start Date Active Zofran 4 mg tablet RxNorm: 385118 1 Tablet(s) PO PRN No Start Date Active B12 1000 mcg RxNorm: 1 Tablet(s) PO daily No Start Date Active magnesium oxide 400 mg capsule RxNorm: 263877 2 Capsule(s) PO BID No Start Date Active Synthroid 150 mcg ta blet RxNorm: 873611 1 Tablet(s) PO daily No Start Date 04/04/2015 Inactive Coumadin 5 mg tablet RxNorm: 111014 1 Tablet(s) PO daily No Start Date 04/03/2015 Inactive cranberry 1,000 mg c apsule RxNorm: 853108 1 Capsule(s) PO daily No Start Date 04/13/2018 Inactive allopurinol 300 mg t ablet RxNorm: 509046 1 Tablet(s) PO daily No Start Date 03/04/2015 Inactive Prilosec 20 mg capsu le,delayed release RxNorm: 714424 1 Capsule(s) PO PRN No Start Date 08/01/2015 Inactive potassium chloride 2 0 mEq/15 mL oral liquid RxNorm: 041500 30 Milliliter(s) (40m Eq) PO daily No Start Date 12/06/2014 Inactive atenolol 50 mg tablet RxNorm: 128524 1 Tablet(s) PO daily No Start Date 08/29/2017 Inactive Lipitor 40 mg tablet RxNorm: 081680 1 Tablet(s) PO daily No Start Date 09/19/2017 Inactive Effexor 75 mg tablet RxNorm: 678961 1 Tablet(s) PO daily No Start Date 04/04/2015 Inactive Carafate 1 gram tablet RxNorm: 031308 1 Tablet(s) PO BID No Start Date 02/07/2015 Inactive clonazepam 0.5 mg ta blet RxNorm: 054496 1 Tablet(s) PO BID No Start Date 02/10/2015 Inactive Plavix 75 mg tablet RxNorm: 089972 1 Tablet(s) PO daily No Start Date 02/11/2015 Inactive sodium bicarbonate 6 50 mg tablet RxNorm: 196474 2 Tablet(s) PO BID No Start Date 09/01/2015 Inactive Lovenox 30 mg/0.3 mL subcutaneous syringe RxNorm: 451034 0.3 Milliliter(s) SQ Q12H No Start Date 03/15/2017 Inactive Fish Oil 1,000 mg ca psule RxNorm: 1 Capsule(s) PO daily No Start Date 01/13/2016 Inactive Detrol LA 4 mg capsu le,extended release RxNorm: 125326 1 Capsule(s) PO daily No Start Date 06/02/2015 Inactive Medication Administered No Medication Administered data Immunizations Vaccine Codes Date Status SHINGARIX CVX: 121 03/23 completed Assessments Condition Codes Effectiv e Dates Hypothyroidism, unspecified ICD-10: E03.9 ICD-9: 244.9 04/14/2018 Essential (primary) hypertension ICD -10: I10 ICD-9: 401.9 04/14/2018 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 ICD-10: Z79.01 ICD-9: [...] ICD-10: R53.83 ICD-9: 780.79 08/20/2016 Other terminal make up 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 ICD-10: Z79.899 ICD-9: [...] Code Item Item Code Result Date Pt [id number] PT 30.2 seconds 07/25/2018 Pt Kpp2169 INR 2.9 07/25/2018 Pt Jlx7854 Low Intensity - 1.5-2.0 07/25/2018 Pt Bqo3062 Mod intensity - 2.0-3.0 07/25/2018 Pt Kep1832 Hi intensity - 3.0-4.0 07/25/2018 Pt Qkp2327 PT 25.2 seconds 07/19/2018 Pt Wiy9707 INR 2.3 07/19/2018 Pt Nbu6200 Low Intensity - 1.5-2.0 07/19/2018 Pt Gjf6124 Mod intensity - 2.0-3.0 07/19/2018 Pt Jdt3860 Hi intensity - 3.0-4.0 07/19/2018 Pt Ypg8421 PT 17.4 seconds 07/15/2018 Pt Ajy0042 INR 1.5 07/15/2018 Pt Rst7937 Low Intensity - 1.5-2.0 07/15/2018 Pt Kae9953 Mod intensity - 2.0-3.0 07/15/2018 Pt Tba6305 Hi intensity - 3.0-4.0 07/15/2018 Pt Mfo5652 PT 17.8 seconds 07/08/2018 Pt Iyf0973 INR 1.5 07/08/2018 Pt Mtu1293 Low Intensity - 1.5-2.0 07/08/2018 Pt Kuz0615 Mod intensity - 2.0-3.0 07/08/2018 Pt Tdw2098 Hi intensity - 3.0-4.0 07/08/2018 Pt Azt7886 PT 19.2 seconds 07/01/2018 Pt Uwj4092 INR 1.7 07/01/2018 Pt Kuq7136 Low Intensity - 1.5-2.0 07/01/2018 Pt Oct7544 Mod intensity - 2.0-3.0 07/01/2018 Pt Gjy9150 Hi intensity - 3.0-4.0 07/01/2018 Pt Tyq2047 PT 17.4 seconds 06/23/2018 Pt Kmq8197 INR 1.5 06/23/2018 Pt Ezx8870 Low Intensity - 1.5-2.0 06/23/2018 Pt Zea3350 Mod intensity - 2.0-3.0 06/23/2018 Pt Akb2198 Hi intensity - 3.0-4.0 06/23/2018 Pt Bus4566 PT 18.4 seconds 06/17/2018 Pt Ctj3576 INR 1.6 06/17/2018 Pt Ljb6443 Low Intensity - 1.5-2.0 06/17/2018 Pt Cdl5258 Mod intensity - 2.0-3.0 06/17/2018 Pt Zyb6220 Hi intensity - 3.0-4.0 06/17/2018 Sed Rate [...] 30.4 pg 06/08/2018 Cbc With Differential Ord2 [place]% 9.4 % 06/08/2018 Cbc With Differential Ord2 [...] 1.20 K/ul 06/08/2018 Cbc With Differential Ord2 [place] ABS# 0.5 K/ul 06/08/2018 Cbc With Differential Ord2 Eos ABS# 0.1 K/ul 06/08/2018 Cbc With Differential Ord2 Baso ABS# 0.1 K/ul 06/08/2018 C-Reactive Protein Qnt Crqnt CRP 0.1 mg/dl 06/08/2018 Pt Dlu3974 PT 17.6 seconds 06/08/2018 Pt Cfa1341 INR 1.5 06/08/2018 Pt Hyb5537 Low Intensity - 1.5-2.0 06/08/2018 Pt Ylm7307 Mod intensity - 2.0-3.0 06/08/2018 Pt Vze8580 Hi intensity - 3.0-4.0 06/08/2018 Pt Mps1852 PT 16.8 seconds 05/10/2018 Pt Ryp5106 INR 1.4 05/10/2018 Pt Wii2401 Low Intensity - 1.5-2.0 05/10/2018 Pt Hss6215 Mod intensity - 2.0-3.0 05/10/2018 Pt Det7823 Hi intensity - 3.0-4.0 05/10/2018 Pt Vkz4969 PT 16.7 seconds 05/04/2018 Pt Phr1367 INR 1.4 05/04/2018 Pt Zrs3677 Low Intensity - 1.5-2.0 05/04/2018 Pt Qhu9779 Mod intensity - 2.0-3.0 05/04/2018 Pt Nym1566 Hi intensity - 3.0-4.0 05/04/2018 Free T4 Cyw720 FREE T4 1.09 ng/dL 04/14/2018 Tsh Ord6 TSH (3rd IS) 2.36 uIU/mL 04/14/2018 Pt Wed3354 PT 20.3 seconds 04/14/2018 Pt Tun2057 INR 1.8 04/14/2018 Pt Isr3746 Low Intensity - 1.5-2.0 04/14/2018 Pt Tis4172 Mod intensity - 2.0-3.0 04/14/2018 Pt Dnz2509 Hi intensity - 3.0-4.0 04/14/2018 Lipid Ord30 CHOL 149 mg/dL 04/14/2018 Lipid Ord30 HDL 49.0 mg/dl 04/14/2018 Lipid Ord30 TRIG 161 mg/dL 04/14/2018 Lipid Ord30 LDL 68 mg/dL 04/14/2018 Lipid Ord30 C/HDL 3.0 Ratio 04/14/2018 %Hba1C Cnc513 % HbA1c 53212-3 5.9 % 04/14/2018 %Hba1C Vqo698 Gluc Ave 123 mg/dL 04/14/2018 Comp Metabolic Ldw113 NA 140 mEq/L 04/14/2018 Comp Metabolic Ajq637 K 4.1 mEq/L 04/14/2018 Comp Metabolic Zsj440 CL 105 mEq/L 04/14/2018 Comp Metabolic Mtl018 CO2 28.0 mEq/L 04/14/2018 Comp Metabolic Jem574 AN ION GAP 11 04/14/2018 Comp Metabolic Mix438 GL UCOSE 112 mg/dL 04/14/2018 Comp Metabolic Mwg918 Cr eat 1.0 mg/dL 04/14/2018 Comp Metabolic Ppa929 eG FR 58 ml/min/1.73m2 04/14 Comp Metabolic Jby935 BUN 20 mg/dL 04/14/2018 Comp Metabolic Jty225 B/ C Ratio 20.2 Ratio 04/14/2018 Comp Metabolic Dls290 CA LCIUM 10.0 mg/dL 04/14/2018 Comp Metabolic Tov567 AL K PHOS 51 U/L 04/14/2018 Comp Metabolic Wwl758 T(SGOT) 24 U/L 04/14/2018 Comp Metabolic Cln498 AL T(SGPT) 21 U/L 04/14/2018 Comp Metabolic Fkr709 BI LI T 0.8 mg/dL 04/14/2018 Comp Metabolic Ugg855 AL BUMIN 4.2 g/dL 04/14/2018 Comp Metabolic Tlq368 TP RO 7.1 g/dL 04/14/2018 Comp Metabolic Kwv192 GL OB 2.9 g/dL 04/14/2018 Comp Metabolic Kjj370 A/ G Ratio 1.5 Ratio 04/14/2018 Comp Metabolic Vhn453 Os mo 283 mOsmo 04/14/2018 Cbc With [...] 30.7 pg 04/14/2018 Cbc With Differential Ord2 [place]% 10.6 % 04/14/2018 Cbc With Differential Ord2 [...] 1.18 K/ul 04/14/2018 Cbc With Differential Ord2 [place] ABS# 0.5 K/ul 04/14/2018 Cbc With Differential Ord2 Eos ABS# 0.2 K/ul 04/14/2018 Cbc With Differential Ord2 Baso ABS# 0.1 K/ul 04/14/2018 Pt Icb9646 PT 29.3 seconds 02/11/2018 Pt Tbt0780 INR 2.8 02/11/2018 Pt Ipv2495 Low Intensity - 1.5-2.0 02/11/2018 Pt Yqx5439 Mod intensity - 2.0-3.0 02/11/2018 Pt Cbk3969 Hi intensity - 3.0-4.0 02/11/2018 Comp Metabolic Rsv625 NA 141 mEq/L 01/05/2018 Comp Metabolic Gnb940 K 3.7 mEq/L 01/05/2018 Comp Metabolic Bwp943 CL 102 mEq/L 01/05/2018 Comp Metabolic Rme037 CO2 29.0 mEq/L 01/05/2018 Comp Metabolic Kei115 AN ION GAP 14 01/05/2018 Comp Metabolic Tbh705 GL UCOSE 136 mg/dL 01/05/2018 Comp Metabolic Pmd382 Cr eat 1.0 mg/dL 01/05/2018 Comp Metabolic Xag691 eG FR 61 ml/min/1.73m2 01/05 Comp Metabolic Joj219 BUN 22 mg/dL 01/05/2018 Comp Metabolic Qug118 B/ C Ratio 22.9 Ratio 01/05/2018 Comp Metabolic Afe663 CA LCIUM 9.7 mg/dL 01/05/2018 Comp Metabolic Hbw058 AL K PHOS 57 U/L 01/05/2018 Comp Metabolic Elp082 T(SGOT) 21 U/L 01/05/2018 Comp Metabolic Gde310 AL T(SGPT) 19 U/L 01/05/2018 Comp Metabolic Cdu905 BI LI T 0.9 mg/dL 01/05/2018 Comp Metabolic Qxr872 AL BUMIN 4.1 g/dL 01/05/2018 Comp Metabolic Pxz821 TP RO 7.1 g/dL 01/05/2018 Comp Metabolic Pgf496 GL OB 3.0 g/dL 01/05/2018 Comp Metabolic Smq612 A/ G Ratio 1.4 Ratio 01/05/2018 Comp Metabolic Ldp604 Os mo 287 mOsmo 01/05/2018 Free T4 Nag485 FREE T4 1.05 ng/dL 01/05/2018 %Hba1C Qqg212 % HbA1c 89787-8 6.0 % 01/05/2018 %Hba1C Bqz467 Gluc Ave 126 mg/dL 01/05/2018 Cbc With [...] 27.3 % 01/05/2018 Cbc With Differential Ord2 [place]% 10.5 % 01/05/2018 Cbc With Differential Ord2 [...] 1.27 K/ul 01/05/2018 Cbc With Differential Ord2 [place] ABS# 0.5 K/ul 01/05/2018 Cbc With Differential Ord2 Eos ABS# 0.2 K/ul 01/05/2018 Cbc With Differential Ord2 Baso ABS# 0.1 K/ul 01/05/2018 Pt Xxa4202 PT 20.7 seconds 01/05/2018 Pt Uph7297 INR 1.8 01/05/2018 Pt Xha6723 Low Intensity - 1.5-2.0 01/05/2018 Pt Xck9901 Mod intensity - 2.0-3.0 01/05/2018 Pt Czb2399 Hi intensity - 3.0-4.0 01/05/2018 Tsh Ord6 TSH (3rd IS) 2.34 uIU/mL 01/05/2018 Lipid Ord30 CHOL 156 mg/dL 01/05/2018 Lipid Ord30 HDL 48.0 mg/dl 01/05/2018 Lipid Ord30 TRIG 207 mg/dL 01/05/2018 Lipid Ord30 LDL 67 mg/dL 01/05/2018 Lipid Ord30 C/HDL 3.3 Ratio 01/05/2018 Pt Yqv6507 PT 28.3 seconds 11/26/2017 Pt Nbz2989 INR 2.6 11/26/2017 Pt Ikg2398 Low Intensity - 1.5-2.0 11/26/2017 Pt Grl0451 Mod intensity - 2.0-3.0 11/26/2017 Pt Jdp0200 Hi intensity - 3.0-4.0 11/26/2017 Pt Bbw0720 PT 36.5 seconds 11/19/2017 Pt Bun3554 INR 3.6 11/19/2017 Pt Des6054 Low Intensity - 1.5-2.0 11/19/2017 Pt Ufo0989 Mod intensity - 2.0-3.0 11/19/2017 Pt Bnb3204 Hi intensity - 3.0-4.0 11/19/2017 Pt Kin3375 PT 22.9 seconds 10/15/2017 Pt Ico6761 INR 2.0 10/15/2017 Pt Fho6049 Low Intensity - 1.5-2.0 10/15/2017 Pt Quz9202 Mod intensity - 2.0-3.0 10/15/2017 Pt Pjx8314 Hi intensity - 3.0-4.0 10/15/2017 Pt Ovh5695 PT 25.9 seconds 10/01/2017 Pt Wnu2419 INR 2.4 10/01/2017 Pt Wrb5884 Low Intensity - 1.5-2.0 10/01/2017 Pt Xhk1703 Mod intensity - 2.0-3.0 10/01/2017 Pt Xfx6447 Hi intensity - 3.0-4.0 10/01/2017 Pt Ekb4649 PT 20.6 seconds 09/24/2017 Pt Vdx3320 INR 1.8 09/24/2017 Pt Dnw0505 Low Intensity - 1.5-2.0 09/24/2017 Pt Raw3077 Mod intensity - 2.0-3.0 09/24/2017 Pt Drg4524 Hi intensity - 3.0-4.0 09/24/2017 Pt Dlg8202 PT 21.0 seconds 09/15/2017 Pt Gbk9491 INR 1.8 09/15/2017 Pt Tow1011 Low Intensity - 1.5-2.0 09/15/2017 Pt Nln3133 Mod intensity - 2.0-3.0 09/15/2017 Pt Zjk4644 Hi intensity - 3.0-4.0 09/15/2017 Pt Mka4089 PT 19.0 seconds 09/03/2017 Pt Ceu2971 INR 1.6 09/03/2017 Pt Vxn9924 Low Intensity - 1.5-2.0 09/03/2017 Pt Ixg1446 Mod intensity - 2.0-3.0 09/03/2017 Pt Qwj4896 Hi intensity - 3.0-4.0 09/03/2017 Pt Dub7541 PT 17.6 seconds 08/23/2017 Pt Yom3147 INR 1.5 08/23/2017 Pt Kkz5796 Low Intensity - 1.5-2.0 08/23/2017 Pt Mro4652 Mod intensity - 2.0-3.0 08/23/2017 Pt Ezi9151 Hi intensity - 3.0-4.0 08/23/2017 Pt Nbp3779 PT 12.7 seconds 08/20/2017 Pt Tsq4270 INR 1.0 08/20/2017 Pt Kwf1670 Low Intensity - 1.5-2.0 08/20/2017 Pt Jtb5456 Mod intensity - 2.0-3.0 08/20/2017 Pt Opx8103 Hi intensity - 3.0-4.0 08/20/2017 Pt Zpu1021 PT 12.9 seconds 08/17/2017 Pt Eet6211 INR 1.0 08/17/2017 Pt Ymw6303 Low Intensity - 1.5-2.0 08/17/2017 Pt Clq9396 Mod intensity - 2.0-3.0 08/17/2017 Pt Azt1228 Hi intensity - 3.0-4.0 08/17/2017 Pt Fxd2310 PT 18.5 seconds 08/10/2017 Pt Xkr6131 INR 1.6 08/10/2017 Pt Qtd5753 Low Intensity - 1.5-2.0 08/10/2017 Pt Dse8372 Mod intensity - 2.0-3.0 08/10/2017 Pt Vxw3083 Hi intensity - 3.0-4.0 08/10/2017 Tsh Ord6 [...] 14.7 % 05/27/2017 Cbc With Differential Ord2 [place]% 8.1 % 05/27/2017 Cbc With Differential Ord2 [...] 1.11 K/ul 05/27/2017 Cbc With Differential Ord2 [place] ABS# 0.6 K/ul 05/27/2017 Cbc With Differential Ord2 Eos ABS# 0.2 K/ul 05/27/2017 Cbc With Differential Ord2 Baso ABS# 0.1 K/ul 05/27/2017 Pt Ctl5429 PT 28.2 seconds 05/27/2017 Pt Wqs3747 INR 2.6 05/27/2017 Pt Ipx0191 Low Intensity - 1.5-2.0 05/27/2017 Pt Ham8743 Mod intensity - 2.0-3.0 05/27/2017 Pt Cri1250 Hi intensity - 3.0-4.0 05/27/2017 Lipid Ord30 CHOL 167 mg/dL 05/27/2017 Lipid Ord30 HDL 49.0 mg/dl 05/27/2017 Lipid Ord30 TRIG 347 mg/dL 05/27/2017 Lipid Ord30 LDL 49 mg/dL 05/27/2017 Lipid Ord30 C/HDL 3.4 Ratio 05/27/2017 Magnesium Ord90 Mag 1.4 mg/dL 05/27/2017 %Hba1C Sic102 % HbA1c 31327-4 5.9 % 05/27/2017 %Hba1C Efq126 Gluc Ave 123 mg/dL 05/27/2017 Comp Metabolic How506 NA 138 mEq/L 05/27/2017 Comp Metabolic Egh507 K 4.1 mEq/L 05/27/2017 Comp Metabolic Iqr490 CL 101 mEq/L 05/27/2017 Comp Metabolic Tkl130 CO2 31.0 mEq/L 05/27/2017 Comp Metabolic Hdn682 AN ION GAP 10 05/27/2017 Comp Metabolic Qhu171 GL UCOSE 117 mg/dL 05/27/2017 Comp Metabolic Ier628 Cr eat 0.9 mg/dL 05/27/2017 Comp Metabolic Hhd188 eG FR 62 ml/min/1.73m2 05/27 Comp Metabolic Lsk424 BUN 25 mg/dL 05/27/2017 Comp Metabolic Wla691 B/ C Ratio 26.6 Ratio 05/27/2017 Comp Metabolic Wit047 CA LCIUM 9.5 mg/dL 05/27/2017 Comp Metabolic Lid128 AL K PHOS 73 U/L 05/27/2017 Comp Metabolic Cvo149 T(SGOT) 18 U/L 05/27/2017 Comp Metabolic Ywh949 AL T(SGPT) 12 U/L 05/27/2017 Comp Metabolic Ude314 BI LI T 0.5 mg/dL 05/27/2017 Comp Metabolic Vde669 AL BUMIN 4.1 g/dL 05/27/2017 Comp Metabolic Tcb763 TP RO 7.1 g/dL 05/27/2017 Comp Metabolic Efj988 GL OB 3.0 g/dL 05/27/2017 Comp Metabolic Uix946 A/ G Ratio 1.3 Ratio 05/27/2017 Comp Metabolic Osi633 Os mo 281 mOsmo 05/27/2017 Free T4 Dxm906 FREE T4 0.91 ng/dL 05/27/2017 Pt Jja6566 PT 29.2 seconds 04/16/2017 Pt Ril0108 INR 2.7 04/16/2017 Pt Why5609 Low Intensity - 1.5-2.0 04/16/2017 Pt Xqx9683 Mod intensity - 2.0-3.0 04/16/2017 Pt Fxg3515 Hi intensity - 3.0-4.0 04/16/2017 Pt Bbv4741 PT 30.7 seconds 03/31/2017 Pt Fmo8614 INR 2.9 03/31/2017 Pt Zol7965 Low Intensity - 1.5-2.0 03/31/2017 Pt Utr6710 Mod intensity - 2.0-3.0 03/31/2017 Pt Gxz9346 Hi intensity - 3.0-4.0 03/31/2017 Pt Veh1486 PT 21.3 seconds 03/26/2017 Pt Fyv8026 INR 1.9 03/26/2017 Pt Fxs3174 Low Intensity - 1.5-2.0 03/26/2017 Pt Qed0209 Mod intensity - 2.0-3.0 03/26/2017 Pt Uwa0055 Hi intensity - 3.0-4.0 03/26/2017 Pt Uvy7914 PT 19.8 seconds 03/22/2017 Pt Equ6212 INR 1.7 03/22/2017 Pt Npa8827 Low Intensity - 1.5-2.0 03/22/2017 Pt Jcv9366 Mod intensity - 2.0-3.0 03/22/2017 Pt Lys5094 Hi intensity - 3.0-4.0 03/22/2017 Pt Xzm8185 PT 15.6 seconds 03/19/2017 Pt Bqj5747 INR 1.3 03/19/2017 Pt Lsp6294 Low Intensity - 1.5-2.0 03/19/2017 Pt Dnz5621 Mod intensity - 2.0-3.0 03/19/2017 Pt Rtt4377 Hi intensity - 3.0-4.0 03/19/2017 Pt Rvu9857 PT 13.7 seconds 03/15/2017 Pt Ojj8778 INR 1.1 03/15/2017 Pt Qql8089 Low Intensity - 1.5-2.0 03/15/2017 Pt Lqy1783 Mod intensity - 2.0-3.0 03/15/2017 Pt Xss2630 Hi intensity - 3.0-4.0 03/15/2017 Pt Fqo4241 PT 25.8 seconds 01/28/2017 Pt Ppj3282 INR 2.4 01/28/2017 Pt Awi6539 Low Intensity - 1.5-2.0 01/28/2017 Pt Tnp6450 Mod intensity - 2.0-3.0 01/28/2017 Pt Loi0327 Hi intensity - 3.0-4.0 01/28/2017 %Hba1C Vta519 % HbA1c 93953-5 6.4 % 10/23/2016 %Hba1C Vcs671 Gluc Ave 137 mg/dL 10/23/2016 Comp Metabolic Vrt371 NA 138 mEq/L 10/23/2016 Comp Metabolic Ahx153 K 3.4 mEq/L 10/23/2016 Comp Metabolic Vfu356 CL 100 mEq/L 10/23/2016 Comp Metabolic Dui847 CO2 30.0 mEq/L 10/23/2016 Comp Metabolic Sel347 AN ION GAP 11 10/23/2016 Comp Metabolic Uxc456 GL UCOSE 139 mg/dL 10/23/2016 Comp Metabolic Icu078 Cr eat 0.9 mg/dL 10/23/2016 Comp Metabolic Gow500 eG FR 62 ml/min/1.73m2 10/23 Comp Metabolic Cxp047 BUN 22 mg/dL 10/23/2016 Comp Metabolic Ynj201 B/ C Ratio 23.4 Ratio 10/23/2016 Comp Metabolic Fpi835 CA LCIUM 8.7 mg/dL 10/23/2016 Comp Metabolic Faf233 AL K PHOS 66 U/L 10/23/2016 Comp Metabolic Ukc783 T(SGOT) 20 U/L 10/23/2016 Comp Metabolic Isv673 AL T(SGPT) 10 U/L 10/23/2016 Comp Metabolic Hqr785 BI LI T 0.5 mg/dL 10/23/2016 Comp Metabolic Erj598 AL BUMIN 3.5 g/dL 10/23/2016 Comp Metabolic Voy889 TP RO 6.3 g/dL 10/23/2016 Comp Metabolic Mcj779 GL OB 2.8 g/dL 10/23/2016 Comp Metabolic Oge286 A/ G Ratio 1.3 Ratio 10/23/2016 Comp Metabolic Qfc698 Os mo 281 mOsmo 10/23/2016 Pt Wjj2263 PT 26.8 seconds 10/23/2016 Pt Qwe8814 INR 2.7 10/23/2016 Pt Jlp6620 Low Intensity - 1.5-2.0 10/23/2016 Pt Lef0123 Mod intensity - 2.0-3.0 10/23/2016 Pt Yuu0658 Hi intensity - 3.0-4.0 10/23/2016 Pt Bgi5577 PT 28.3 seconds 09/25/2016 Pt Dff8891 INR 2.8 09/25/2016 Pt Mjz7491 Low Intensity - 1.5-2.0 09/25/2016 Pt Dbl9573 Mod intensity - 2.0-3.0 09/25/2016 Pt Xku9004 Hi intensity - 3.0-4.0 09/25/2016 Metabolic Ord15 [...] Metabolic Ord15 CALCIUM 8.8 mg/dL 09/25/2016 Pt Vrb0411 PT 30.6 seconds 09/11/2016 Pt Gri5004 INR 3.2 09/11/2016 Pt Dyk6996 Low Intensity - 1.5-2.0 09/11/2016 Pt Pit8391 Mod intensity - 2.0-3.0 09/11/2016 Pt Kvj5202 Hi intensity - 3.0-4.0 09/11/2016 Comp Metabolic Lzl498 NA 138 mEq/L 09/11/2016 Comp Metabolic Thg041 K 4.4 mEq/L 09/11/2016 Comp Metabolic Yme044 CL 103 mEq/L 09/11/2016 Comp Metabolic Dih766 CO2 31.0 mEq/L 09/11/2016 Comp Metabolic Ayz393 AN ION GAP 8 09/11/2016 Comp Metabolic Dgm476 GL UCOSE 146 mg/dL 09/11/2016 Comp Metabolic Pll023 Cr eat 1.0 mg/dL 09/11/2016 Comp Metabolic Bby894 eG FR 60 ml/min/1.73m2 09/11 Comp Metabolic Wht873 BUN 16 mg/dL 09/11/2016 Comp Metabolic Ook984 B/ C Ratio 16.5 Ratio 09/11/2016 Comp Metabolic Vsk503 CA LCIUM 8.7 mg/dL 09/11/2016 Comp Metabolic Tnc814 AL K PHOS 52 U/L 09/11/2016 Comp Metabolic Jdk936 T(SGOT) 19 U/L 09/11/2016 Comp Metabolic Qfu956 AL T(SGPT) 11 U/L 09/11/2016 Comp Metabolic Dwi328 BI LI T 0.7 mg/dL 09/11/2016 Comp Metabolic Khb589 AL BUMIN 3.3 g/dL 09/11/2016 Comp Metabolic Gcj118 TP RO 5.8 g/dL 09/11/2016 Comp Metabolic Naz480 GL OB 2.5 g/dL 09/11/2016 Comp Metabolic Hvj952 A/ G Ratio 1.3 Ratio 09/11/2016 Comp Metabolic Jhj027 Os mo 280 mOsmo 09/11/2016 C-Reactive Protein Qnt Crqnt CRP 0.1 mg/dl 08/21/2016 Comp Metabolic Wir546 NA 139 mEq/L 08/21/2016 Comp Metabolic Crx408 K 4.1 mEq/L 08/21/2016 Comp Metabolic Acu322 CL 102 mEq/L 08/21/2016 Comp Metabolic Wli622 CO2 30.0 mEq/L 08/21/2016 Comp Metabolic Jpd059 AN ION GAP 11 08/21/2016 Comp Metabolic Jgn289 GL UCOSE 148 mg/dL 08/21/2016 Comp Metabolic Qyr302 Cr eat 1.0 mg/dL 08/21/2016 Comp Metabolic Mtg220 eG FR 55 ml/min/1.73m2 08/21 Comp Metabolic Vtv644 BUN 21 mg/dL 08/21/2016 Comp Metabolic Pda834 B/ C Ratio 20.2 Ratio 08/21/2016 Comp Metabolic Pul441 CA LCIUM 9.4 mg/dL 08/21/2016 Comp Metabolic Pyq448 AL K PHOS 63 U/L 08/21/2016 Comp Metabolic Zok733 T(SGOT) 23 U/L 08/21/2016 Comp Metabolic Zld293 AL T(SGPT) 16 U/L 08/21/2016 Comp Metabolic Smr520 BI LI T 0.6 mg/dL 08/21/2016 Comp Metabolic Kgy301 AL BUMIN 3.9 g/dL 08/21/2016 Comp Metabolic Pbd382 TP RO 6.8 g/dL 08/21/2016 Comp Metabolic Xyl428 GL OB 2.9 g/dL 08/21/2016 Comp Metabolic Kop689 A/ G Ratio 1.4 Ratio 08/21/2016 Comp Metabolic Nuh418 Os mo 283 mOsmo 08/21/2016 Sed Rate Ord21 ESR 16 mm/hr 08/21/2016 Pt Eim0567 PT 27.2 seconds 08/21/2016 Pt Fxs0419 INR 2.7 08/21/2016 Pt Xeh9024 Low Intensity - 1.5-2.0 08/21/2016 Pt Ndm0868 Mod intensity - 2.0-3.0 08/21/2016 Pt Nax0234 Hi intensity - 3.0-4.0 08/21/2016 Magnesium Ord90 Mag 1.9 mg/dL 08/21/2016 Pt Kta0212 PT 25.9 seconds 06/17/2016 Pt Pvc0756 INR 2.5 06/17/2016 Pt Twi6881 Low Intensity - 1.5-2.0 06/17/2016 Pt Qwi8888 Mod intensity - 2.0-3.0 06/17/2016 Pt Mph6011 Hi intensity - 3.0-4.0 06/17/2016 Tsh Ord6 hTSH II 2.13 uIU/mL 06/08/2016 Free T4 Lnw969 FREE T4 0.79 ng/dL 06/08/2016 Cbc With [...] 80.8 fl 06/08/2016 Cbc With Differential Ord2 [place]% 12.0 % 06/08/2016 Cbc With Differential Ord2 [...] 1.40 K/ul 06/08/2016 Cbc With Differential Ord2 [place] ABS# 0.7 K/ul 06/08/2016 Cbc With Differential Ord2 Eos ABS# 0.3 K/ul 06/08/2016 Cbc With Differential Ord2 Baso ABS# 0.1 K/ul 06/08/2016 %Hba1C Grf247 % HbA1c 01250-6 6.2 % 06/08/2016 %Hba1C Jms303 Gluc Ave 131 mg/dL 06/08/2016 Comp Metabolic Agv500 NA 138 mEq/L 06/08/2016 Comp Metabolic Xde354 K 3.9 mEq/L 06/08/2016 Comp Metabolic Fuq055 CL 105 mEq/L 06/08/2016 Comp Metabolic Mpe588 CO2 27.0 mEq/L 06/08/2016 Comp Metabolic Bge226 AN ION GAP 10 06/08/2016 Comp Metabolic Kti077 GL UCOSE 127 mg/dL 06/08/2016 Comp Metabolic Mwj922 Cr eat 1.0 mg/dL 06/08/2016 Comp Metabolic Nog184 eG FR 59 ml/min/1.73m2 06/08 Comp Metabolic Tlb791 BUN 19 mg/dL 06/08/2016 Comp Metabolic Kjg758 B/ C Ratio 19.4 Ratio 06/08/2016 Comp Metabolic Dir452 CA LCIUM 9.2 mg/dL 06/08/2016 Comp Metabolic Pni401 AL K PHOS 77 U/L 06/08/2016 Comp Metabolic Soj302 T(SGOT) 19 U/L 06/08/2016 Comp Metabolic Jxy498 AL T(SGPT) 13 U/L 06/08/2016 Comp Metabolic Tsj982 BI LI T 0.5 mg/dL 06/08/2016 Comp Metabolic Qzl062 AL BUMIN 3.8 g/dL 06/08/2016 Comp Metabolic Mej843 TP RO 6.6 g/dL 06/08/2016 Comp Metabolic Pcm647 GL OB 2.8 g/dL 06/08/2016 Comp Metabolic Mrl541 A/ G Ratio 1.4 Ratio 06/08/2016 Comp Metabolic Mpz437 Os mo 280 mOsmo 06/08/2016 Pt Llb1166 PT 36.1 seconds 06/08/2016 Pt Sim1098 INR 3.9 06/08/2016 Pt Ivp6447 Low Intensity - 1.5-2.0 06/08/2016 Pt Jwi5183 Mod intensity - 2.0-3.0 06/08/2016 Pt Lgu9954 Hi intensity - 3.0-4.0 06/08/2016 Lipid Ord30 CHOL 149 mg/dL 06/08/2016 Lipid Ord30 HDL 46.0 mg/dl 06/08/2016 Lipid Ord30 TRIG 279 mg/dL 06/08/2016 Lipid Ord30 LDL 47 mg/dL 06/08/2016 Lipid Ord30 C/HDL 3.2 Ratio 06/08/2016 Pt Zxt0989 PT 30.9 seconds 02/12/2016 Pt Cym0050 INR 3.2 02/12/2016 Pt Fdr7941 Low Intensity - 1.5-2.0 02/12/2016 Pt Yjj1019 Mod intensity - 2.0-3.0 02/12/2016 Pt Wda5116 Hi intensity - 3.0-4.0 02/12/2016 Free T4 Tje243 FREE T4 1.24 ng/dL 09/27/2015 %Hba1C Mte897 % HbA1c 36491-5 6.4 % 09/27/2015 %Hba1C Ont918 Gluc Ave 137 mg/dL 09/27/2015 Tsh Ord6 hTSH II 0.37 uIU/mL 09/27/2015 Pt Kvm0268 PT 26.2 seconds 09/27/2015 Pt Zmr4033 INR 2.5 09/27/2015 Pt Vay1544 Low Intensity - 1.5-2.0 09/27/2015 Pt Sld1180 Mod intensity - 2.0-3.0 09/27/2015 Pt Ofe7693 Hi intensity - 3.0-4.0 09/27/2015 Pt Rzo5609 PT 27.6 seconds 2015 Pt Kyk1542 INR 2.7 2015 Pt Yll7116 Low Intensity - 1.5-2.0 2015 Pt Axc2112 Mod intensity - 2.0-3.0 2015 Pt Lry4825 Hi intensity - 3.0-4.0 2015 %Hba1C Yap112 % HbA1c 99892-7 6.1 % 06/11/2015 %Hba1C Epm020 Gluc Ave 128 mg/dL 06/11/2015 Cbc With [...] Ord2 RDW 15.8 % 06/10/2015 Comp Metabolic Vkj360 NA 139 mEq/L 06/10/2015 Comp Metabolic Swx736 K 4.1 mEq/L 06/10/2015 Comp Metabolic Bcb084 CL 105 mEq/L 06/10/2015 Comp Metabolic Ltk046 CO2 27.0 mEq/L 06/10/2015 Comp Metabolic Ysp366 AN ION GAP 11 06/10/2015 Comp Metabolic Aae271 GL UCOSE 127 mg/dL 06/10/2015 Comp Metabolic Dza119 Cr eat 1.0 mg/dL 06/10/2015 Comp Metabolic Gvp225 eG FR 59 ml/min/1.73m2 06/10 Comp Metabolic Ujs351 BUN 21 mg/dL 06/10/2015 Comp Metabolic Key833 B/ C Ratio 21.2 Ratio 06/10/2015 Comp Metabolic Ulp373 CA LCIUM 9.2 mg/dL 06/10/2015 Comp Metabolic Nbz582 AL K PHOS 87 U/L 06/10/2015 Comp Metabolic Cpv689 T(SGOT) 20 U/L 06/10/2015 Comp Metabolic Jsc625 AL T(SGPT) 17 U/L 06/10/2015 Comp Metabolic Iyz615 BI LI T 0.4 mg/dL 06/10/2015 Comp Metabolic Cef061 AL BUMIN 4.1 g/dL 06/10/2015 Comp Metabolic Ivu710 TP RO 7.2 g/dL 06/10/2015 Comp Metabolic Ugl917 GL OB 3.1 g/dL 06/10/2015 Comp Metabolic Ifr721 A/ G Ratio 1.3 Ratio 06/10/2015 Comp Metabolic Fvv892 Os mo 282 mOsmo 06/10/2015 Tsh Ord6 hTSH II 0.86 uIU/mL 06/10/2015 Lipid Ord30 CHOL 161 mg/dL 06/10/2015 Lipid Ord30 HDL 49.0 mg/dl 06/10/2015 Lipid Ord30 TRIG 208 mg/dL 06/10/2015 Lipid Ord30 LDL 70 mg/dL 06/10/2015 Lipid Ord30 C/HDL 3.3 Ratio 06/10/2015 Pt Ntu2064 PT 25.0 seconds 04/09/2015 Pt Bqw0907 INR 2.4 04/09/2015 Pt Doe6338 Low Intensity - 1.5-2.0 04/09/2015 Pt Qyk1615 Mod intensity - 2.0-3.0 04/09/2015 Pt Wis3920 Hi intensity - 3.0-4.0 04/09/2015 Free T4 Luo224 FREE T4 1.05 ng/dL 01/22/2015 Pt Jrb0431 PT 27.2 seconds 01/22/2015 Pt Fpq4186 INR 2.6 01/22/2015 Pt Yoj8981 Low Intensity - 1.5-2.0 01/22/2015 Pt Bkw7688 Mod intensity - 2.0-3.0 01/22/2015 Pt Xcm4109 Hi intensity - 3.0-4.0 01/22/2015 Cbc With [...] Differential Ord2 RDW 15.2 % 01/22/2015 B12 Sjv882 B12 402.00 pg/ml 01/22/2015 Tsh Ord6 hTSH II 0.65 uIU/mL 01/22/2015 Lipid Ord30 CHOL 166 mg/dL 01/22/2015 Lipid Ord30 HDL 48.0 mg/dl 01/22/2015 Lipid Ord30 TRIG 264 mg/dL 01/22/2015 Lipid Ord30 LDL 65 mg/dL 01/22/2015 Lipid Ord30 C/HDL 3.5 Ratio 01/22/2015 Comp Metabolic Bva537 NA 138 mEq/L 01/22/2015 Comp Metabolic Ati002 K 4.1 mEq/L 01/22/2015 Comp Metabolic Ute302 CL 104 mEq/L 01/22/2015 Comp Metabolic Xff881 CO2 29.0 mEq/L 01/22/2015 Comp Metabolic Wti432 AN ION GAP 9 01/22/2015 Comp Metabolic Vzs616 GL UCOSE 106 mg/dL 01/22/2015 Comp Metabolic Ozy001 Cr eat 0.9 mg/dL 01/22/2015 Comp Metabolic Rxr436 eG FR 63 ml/min/1.73m2 01/22 Comp Metabolic Fje258 BUN 21 mg/dL 01/22/2015 Comp Metabolic Rzh846 B/ C Ratio 22.3 Ratio 01/22/2015 Comp Metabolic Vsy642 CA LCIUM 9.4 mg/dL 01/22/2015 Comp Metabolic Qqb764 AL K PHOS 83 U/L 01/22/2015 Comp Metabolic Nim019 T(SGOT) 23 U/L 01/22/2015 Comp Metabolic Uih929 AL T(SGPT) 18 U/L 01/22/2015 Comp Metabolic Ukv783 BI LI T 0.8 mg/dL 01/22/2015 Comp Metabolic Onf270 AL BUMIN 4.2 g/dL 01/22/2015 Comp Metabolic Stz621 TP RO 7.3 g/dL 01/22/2015 Comp Metabolic Yms193 GL OB 3.1 g/dL 01/22/2015 Comp Metabolic Tab386 A/ G Ratio 1.4 Ratio 01/22/2015 Comp Metabolic Bbs608 Os mo 279 mOsmo 01/22/2015 Review of [...] 1995 Ears/Nose/Throat oral cavity/pharynx/larynx Overall: hypopharynx benign 01/04/2018 [...] clear 02/24/2017 None Full Exam - General 1995 Ears/Nose/Throat [...] Date URINALYSIS NONAUTO W /O SCOPE CPT-4: 17433 03/05/2017 Vital Signs Date Vital 04/14/2018 Blood Pressure 1: 116/78 Code: 8480-6 BMI: 41.6 Code: 93261-4 Heart Rate 1: 72 bpm Height: 5'1" SpO2: 98% Weight: 220 lbs 01/18/2018 Blood Pressure 1: 132/74 Code: 8480-6 BMI: 43.5 Code: 46839-0 Heart Rate 1: 70 bpm Height: 5'1" SpO2: 97% Weight: 230 lbs 01/04/2018 Blood Pressure 1: 134/76 Code: 8480-6 BMI: 42.7 Code: 10934-8 Heart Rate 1: 83 bpm Height: 5'1" SpO2: 98% Weight: 226 lbs 09/23/2017 Blood Pressure 1: 124/76 Code: 8480-6 BMI: 42.3 Code: 83505-3 Heart Rate 1: 94 bpm Height: 5'1" SpO2: 96% Weight: 224 lbs 05/27/2017 Blood Pressure 1: 146/78 Code: 8480-6 BMI: 41.4 Code: 75148-6 Heart Rate 1: 85 bpm Height: 5'1" SpO2: 98% Weight: 219 lbs 02/24/2017 Blood Pressure 1: 138/66 Code: 8480-6 BMI: 41.4 Code: 33150-4 Heart Rate 1: 78 bpm Height: 5'1" SpO2: 97% Weight: 219 lbs 11/02/2016 Blood Pressure 1: 144/72 Code: 8480-6 BMI: 46.1 Code: 88147-0 Heart Rate 1: 78 bpm Height: 5'1" SpO2: 98% Weight: 244 lbs 09/30/2016 Blood Pressure 1: 130/76 Code: 8480-6 BMI: 45.0 Code: 22143-2 Heart Rate 1: 86 bpm Height: 5'1" SpO2: 98% Weight: 238 lbs 09/10/2016 Blood Pressure 1: 136/68 Code: 8480-6 BMI: 46.3 Code: 73129-1 Heart Rate 1: 83 bpm Height: 5'1" SpO2: 98% Weight: 245 lbs 08/20/2016 Blood Pressure 1: 142/78 Code: 8480-6 BMI: 45.3 Code: 85116-5 Heart Rate 1: 84 bpm Height: 5'1" SpO2: 99% Weight: 240 lbs 06/08/2016 Blood Pressure 1: 134/76 Code: 8480-6 BMI: 44.2 Code: 25772-4 Heart Rate 1: 86 bpm Height: 5'1" SpO2: 96% Weight: 234 lbs 04/02/2016 Blood Pressure 1: 142/70 Code: 8480-6 BMI: 44.6 Code: 01698-7 Heart Rate 1: 78 bpm Height: 5'1" SpO2: 97% Weight: 236 lbs 01/14/2016 Blood Pressure 1: 146/72 Code: 8480-6 BMI: 44.2 Code: 86416-1 Heart Rate 1: 86 bpm Height: 5'1" SpO2: 96% Weight: 234 lbs 10/02/2015 Blood Pressure 1: 158/76 Code: 8480-6 BMI: 44.2 Code: 64395-8 Heart Rate 1: 67 bpm Height: 5'1" SpO2: 97% Weight: 234 lbs 07/15/2015 Blood Pressure 1: 148/78 Code: 8480-6 Blood Pressure 1: 200/90 Code: 8480-6 BMI: 44.0 Code: 60948-9 Heart Rate 1: 89 bpm Height: 5'1" SpO2: 97% Weight: 233 lbs 06/10/2015 Blood Pressure 1: 140/82 Code: 8480-6 BMI: 44.0 Code: 48394-5 Heart Rate 1: 78 bpm Height: 5'1" [...] hip replacement 02/24/2017 None pre-op/surgery consult Scheduled hdoa e of procedure 03/10/2017 02/24/2017 Non e [...] wearing crocs and there was a new english on the floor: her foot didn't move [...] Encounters Encounter Performer Loca tion Codes Date ([id number]) [id number] EST. P ATIENT, LEVEL IV Diagnosis: Essential (primary) hypertension[ICD10: I10] Diagnosis: Hypothyroidism, unspecified[ICD10: E03.9] Diagnosis: Impaired fasting glucose[ICD10: R73.01] Diagnosis: 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[ICD10: Z79.01] Edna Almanza MD, [facility] CPT-4: 01130 04/14/2018 ([id number]) 14003 EST. P ATIENT, LEVEL III Diagnosis: Localized edema[ICD10: R60.0] Diagnosis: Gastro-esophageal reflux disease without esophagitis[ICD10: K21.9] Edna Almanza MD, [facility] CPT-4: 10525 01/18/2018 [id number]) 82290 EST. P ATIENT, LEVEL IV Diagnosis: Gastro-esophageal reflux disease without esophagitis[ICD10: K21.9] Diagnosis: Localized edema[ICD10: R60.0] Diagnosis: Essential (primary) hypertension[ICD10: I10] Diagnosis: Hypothyroidism, unspecified[ICD10: E03.9] Diagnosis: Impaired fasting glucose[ICD10: R73.01] Edna Almanza MD, [facility] CPT-4: 51772 01/04/2018 ([id number]) 18071 EST. P ATIENT, LEVEL IV Diagnosis: Essential (primary) hypertension[ICD10: I10] Diagnosis: 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[ICD10: Z79.01] Diagnosis: Incisional hernia without obstruction or gangrene[ICD10: K43.2] Diagnosis: Right lower quadrant pain[ICD10: R10.31] Sarai Almanza MD, [facility] CPT-4: 78249 09/23/2017 ([id number]) 82662 EST. 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 PATIENT, LEVEL III Diagnosis: Pain in right hip[ICD10: M25.551] Nata Almanza MD, [facility] CPT-4: 99301 02/24/2017 ([id number]) 28916 EST. P ATIENT, LEVEL IV Diagnosis: Essential (primary) hypertension[ICD10: I10] Diagnosis: Localized edema[ICD10: R60.0] Diagnosis: Pain in right hip[ICD10: M25.551] Sarai Almanza MD, [facility] CPT-4: 52350 11/02/2016 ([id number]) 30533 EST. P ATIENT, LEVEL IV Diagnosis: Essential (primary) hypertension[ICD10: I10] Diagnosis: Localized edema[ICD10: R60.0] Sarai Almanza MD, [facility] CPT-4: 55694 09/30/2016 [id number] EST. PATIENT, LEVEL IV Diagnosis: Localized edema[ICD10: R60.0] Diagnosis: Pain in joints of left hand[ICD10: M25.542] Diagnosis: Pain in joints of right hand[ICD10: M25.541] Nata Almanza MD, [facility] CPT-4: 15973 09/10/2016 55988 EST. PATIENT, LEVEL IV Diagnosis: Localized edema[ICD10: R60.0] Diagnosis: Pain in joints of left hand[ICD10: M25.542] Diagnosis: Pain in joints of right hand[ICD10: M25.541] Diagnosis: Other fatigue[ICD10: R53.83] Nata Almanza MD, [facility] CPT-4: 80338 08/20/2016 73775 EST. PATIENT, LEVEL IV Diagnosis: Essential (primary) hypertension[ICD10: I10] Diagnosis: Other fpc (current) drug therapy[ICD10: Z79.899] Diagnosis: Tinnitus, bilateral[ICD10: H93.13] Nata Almanza MD, [facility] CPT-4: 57450 06/08/2016 [id number] EST. PATIENT, LEVEL IV Diagnosis: Other allergic rhinitis[ICD10: J30.89] Diagnosis: Acute laryngopharyngitis[ICD10: J06.0] Nata Almanza MD, [facility] CPT-4: 14964 04/02/2016 99741 EST. PATIENT, LEVEL IV Diagnosis: Left upper quadrant pain[ICD10: R10.12] Nata Almanza MD, [facility] CPT-4: 34505 01/14/2016 [id number] EST. PATIENT, LEVEL IV Diagnosis: Pain in left shoulder[ICD10: M25.512] Diagnosis: Body mass index (BMI) 40.0-44.9, adult[ICD10: Z68.41] Nata Almanza MD, [facility] CPT-4: 86033 10/02/2015 20637 EST. 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: Other fpc (current) drug therapy[ICD10: Z79.899] Edna Almanza MD, [facility] CPT-4: 00923 06/10/2015 ([id number]) OFFICE VISI T, NEW - LEVEL 4 Diagnosis: ESSENTIAL HYPERTENSION[ICD9: 401.9] Diagnosis: HYPOTHYROIDISM[ICD9: 244.9] Diagnosis: ENCNTR LONG-RX USE NEC[ICD9: V58.69] Diagnosis: HYPERLIPIDEMIA[ICD9: 272.4] Diagnosis: Vitamin B12 deficiency[ICD9: 266.2] Diagnosis: Status post gastric surgery[ICD9: V45.89] Diagnosis: Snoring[ICD9: 786.09] Sarai Almanza MD, [facility] CPT-4: 81088 01/22/2015 Plan of Care Planned Activity Notes [...] Hgb A1C 04/14/2018 Appointment: Edna Douglas WPtel: [address] [place] [address] (15 min) Moderate 04/14/2018 Patient Education: Patient [...] to further attempt to reduce peripheral edema. BORE-fuclgcgn-qqhvijtt prilosec BID and carafate QID -discussed low spice, low acidic diet 01/18/2018 Appointment: Edna Douglas WPtel: [address] [place] [phone] (15 min) Moderate 01/18/2018 Patient Education: Patient [...] of control. 01/04/2018 Appointment: Edna Douglas WPtel: [address] [place], [place] [phone] (30 min) Complex 01/04/2018 Patient Education: Patient Medication Summary Completed 01/04/2018 Care Plan: SCREENINGMAMMOGRAPHYDIGITAL LOINC : 09426-2 Pending 01/04/2018 Visit Plan: Abdominal hernia - [...] [phone] [facility] (15 min) Moderate 09/23/2017 Patient Education: Patient [...] medications. 05/27/2017 [facility]ment: [facility] [phone] [phone] (30 min) Complex 05/27/2017 Patient Education: [...] [place]. 02/24/2017 Appointment: Nata Hsu [facility]el[facility] [phone] [facility] [place] (30 min) Complex 02/24/2017 Patient [...] [place]. 11/02/2016 Appointment: Sarai Almanza [facility]Ptel[facility] [phone] [facility] [place] (15 min) Moderate 11/02/2016 Patient Education: [...] peripheral edema. 09/30/2016 Appointment: Sarai Almanza WPtel: [address] [place] [address] (15 min) Moderate 09/30/2016 Patient Education: Patient [...] peripheral edema. 09/10/2016 Appointment: Nata Hsu WPtel: [facility] (30 min) Complex 09/10/2016 Patient Education: [...] peripheral edema. 08/20/2016 Appointment: Nata Hsu WPtel: [address] [place] [address] (30 min) Complex 08/20/2016 Patient Education: Patient Medication Summary Completed 08/20/2016 Referral: Otf Lee [address] Referral Initiated 07/02/2016 Visit Plan: Chronic [...] 06/08/2016 Care Plan: Referral Order SNOMED-CT : [id number] Pending 06/08/2016 Visit Plan: URI - Pt [...] spray. 04/02/2016 Appointment: [facility]ata Hsu [facility]el[facility] [phone] [facility] [place] (30 min) Complex 04/02/2016 Patient [...] pain 01/14/2016 Appointment: Edna Douglas [facility]el[facility] [phone] [phone] [place] (30 min) Complex 01/14/2016 Patient Education: Patient Medication Summary Completed 01/14/2016 Patient Education: Obesity Completed 01/14/2016 Care Plan: BMI Above normal followup DAVID F-MGMT EDUC & TRAIN 1 PT Pending 10/24/2015 Care Plan: X-RAY EXAM OF SHOULDER LOINC : 30936-8 Pending 10/24/2015 Visit Plan: Left shoulder pain [...] check. 10/02/2015 Appointment: [facility] Douglas [facility]el[facility] [phone] [phone] (15 min) Moderate 10/02/2015 Patient Education: [...] 06/11/2015 Visit Plan: Hypertension - well con simraned [...] ses Completed 06/10/2015 Appointment: Sarai Almanza WPtel: [id number] (15 min) Moderate 04/22/2015 Visit [...] have surgical fixation - planning occurring at [facility]. Snoring - Sleep apnea symptoms with difficulty [...] medications. 01/22/2015 Appointment: Sarai Almanza WPtel: [phone] [facility] [place] (S) New Patient 01/22/2015 Patient Education: Patient Medication Summary Completed 01/22/2015 Patient Education: Hypertension Completed 01/22/2015 Referral: Otf Lee [id number] Referral Initiated Instructions Comment . Edema - pt has bee n advised to elevate legs to prevent dependent edema, compression has been recommended to help to naturally decrease peripheral edema. Diuretic use has been discussed and pt has been instructed in appropriate use of such medication as necessary to further attempt to reduce peripheral edema. . Abdominal hernia - not able to be taken to surgery by local providers and pt has been seen at [facility] and that surgeon felt like Kat would be better served by Dr. Betancur at [facility]. I have recommended a referral to [...] to further attempt to reduce peripheral edema. VTDV-uotpsykq-qvxmvstc prilosec BID and carafate QID -discussed low [...] based on previous levels of control. . Chronic Anticoagul ant use - Pt [...] have surgical fixation - planning occurring at [facility]. Snoring - Sleep apnea symptoms with difficulty [...]
--- OUTSIDE RECORDS SUMMARY | 2020-01-16 23:29 | XMS REPORT | CCD ---
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 [place] Medicare Part B [id number] 2017 Unknown Family history Father Diagnosis Age At Onset Hyperlipidemia Unknown Heart Attack Unknown Mother Diagnosis Age At Onset Arthritis Unknown Social History Social History Element Codes Description Effective Dates Marital status Unknown M arried Nathan 09/30/2016 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 Number of children Unknown 3 01/22/[address]: 786979801 Never smoker 01/22/[address]: 798775458 Never drinks alcohol 01/22/2015 Allergies, Adverse Reactions, [...] ICD-9: 790.21 ICD-10: R73.01 Active 05/27/2017 Unknown retirement (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 ICD-9: V58.61 ICD-10: [...] ICD-10: R53.83 Active 08/20/2016 Unknown 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 ICD-9: V58.69 ICD-10: [...] cose ICD-9: 790.21 ICD-10: R73.01 05/27/2017 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 ICD-9: [...] 780.79 ICD-10: R53.83 08/20/2016 Active 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 ICD-9: V58.69 ICD-10: [...] Instruc tions Start Date Stop Date Sta Fill Instructions Carafate 1 gram tablet RxNorm: 400720 TAKE ONE TABLET BY MOUTH BEFORE MEALS AN D AT BEDTIME 07/28/2018 09/17/2018 Active Coumadin 4 mg tablet RxNorm: 189439 2 Tablet(s) daily 07/11/2018 02/05/2019 Active Generi c For:COUMADIN 4MG 07/22/2017 8:58:26 AM Coumadin 5 mg tablet RxNorm: 390407 Tablet(s) TAKE 1 TABLET BY MOUTH DIRE CTED 07/08/2018 01/03/2019 Ac tive Generic For:COUMADIN 5MG TAB 03/21/2018 9:13:00 AM Coumadin 1 mg tablet RxNorm: 859625 1 Tablet(s) PO daily 07/08/2018 08/06/2018 Active Coumadin 4 mg tablet RxNorm: 750729 Tablet(s) TAKE 1 TABLET BY MOUTH THREE T IMES PER WEEK (WEDNESDAY, WEDNESDAY AND WEDNESDAY) 07/08/2018 07/10/2018 Inactive Gene andre For:COUMADIN 4MG 07/22/2017 8:58:26 AM venlafaxine ER 75 mg capsule,extended release 24 hr RxNorm: 279107 Capsule(s) TAKE 1 CAPSULE BY MOUTH ONCE DAILY 06/23/2018 06/17/2019 Active Generic For:*EFFEXOR XR 75MG 06/19/2017 12:23:45 PM sodium bicarbonate 6 50 mg tablet RxNorm: 692351 Tablet(s) TAKE 2 TABL ETS BY MOUTH TWICE DAILY 06/23/2018 12/19/2018 Active 12/20/2017 9:10:59 AM Coumadin 1 mg tablet RxNorm: 328217 1 Tablet(s) PO daily 06/17/2018 07/07/2018 Inactive Coumadin 1 mg tablet RxNorm: 604534 1 Tablet(s) PO daily 06/17/2018 06/16/2018 Inactive clonazepam 0.5 mg ta blet RxNorm: 292877 1 Tablet(s) PO BID 06/08/2018 11/04/2018 Active Synthroid 137 mcg ta blet RxNorm: 087112 TAKE 1 TABLET BY MOUT H ONCE DAILY 05/18/2018 11/13/2018 Ac tive Generic For:SYNTHROID 137MCG TAB 2017 8:57:54 AM spironolactone 25 mg tablet RxNorm: 694089 TAKE 1 TABLET BY MOUT H EVERY DAY 05/18/2018 05/12/2019 Ac tive Generic For:*ALDACTONE 25MG 05/18/2018 8:57:50 AM Carafate 1 gram tablet RxNorm: 683837 TAKE ONE TABLET BY MOUTH BEFORE MEALS AN D AT BEDTIME 05/18/2018 07/12/2018 Inactive Generic For:CARAFATE 1GM 1 07/18/2017 8:38:28 AM allopurinol 300 mg t ablet RxNorm: 044072 TAKE 1 TABLET BY MOUT H ONCE DAILY. 04/18/2018 10/14/2018 Ac tive Generic For:ZYLOPRIM 300 MG TABLET 03/22 9:13:47 AM Lasix 20 mg tablet RxNorm: 532837 TAKE ONE TABLET BY MOUTH DAILY 04/18/2018 08/15/2018 Ac tive Generic For:LASIX 20MG 04/18/2018 9:13: 50 AM Carafate 1 gram tablet RxNorm: 999407 TAKE ONE TABLET BY MOUTH BEFORE MEALS AN D AT BEDTIME 04/18/2018 05/17/2018 Inactive Generic For:CARAFATE 1GM 1 9:32:51 AM Coumadin 5 mg tablet RxNorm: 002539 TAKE 1 TABLET BY MOUTH DIRECTED 03/21/2018 07/07/2018 In active Generic For:COUMADIN 5MG TAB 03/21/2018 9:13:00 AM Carafate 1 gram tablet RxNorm: 129181 TAKE ONE TABLET BY MOUTH BEFORE MEALS AN D AT BEDTIME 03/21/2018 04/17/2018 Inactive Generic For:CARAFATE 1GM 1 9:14:24 AM Carafate 1 gram tablet RxNorm: 824559 1 Tablet(s) PO AC & HS 02/17/2018 03/20/2018 Inactive atenolol 100 mg tablet RxNorm: 838204 1 Tablet(s) PO daily 02/04/2018 09/01/2018 Active atenolol 50 mg tablet RxNorm: 508090 1 Tablet(s) PO daily 02/03/2018 02/03/2018 Inactive omeprazole 20 mg cap sean,delayed release RxNorm: 884169 1 Capsule(s) BID 01/21/2018 01/15/2019 Ac tive Generic For:PRILOSEC 20MG 07/22/2017 8:5 8:20 AM Carafate 1 gram tablet RxNorm: 687189 1 Tablet(s) PO AC & HS 01/21/2018 02/16/2018 Inactive Carafate 1 gram tablet RxNorm: 113324 1 Tablet(s) PO AC & HS 01/18/2018 01/20/2018 Inactive Carafate 1 gram tablet RxNorm: 766377 1 Tablet(s) PO AC & HS 01/18/2018 02/27/2018 Inactive Carafate 1 gram tablet RxNorm: 400473 1 Tablet(s) PO AC & HS TAKE ONE TABLET B Y MOUTH TWICE DAILY 01/18/2018 05/17/2018 Inactive Generic For:CARAFATE 1GM 0 12/20/2017 9:10:56 AM omeprazole 20 mg cap sean,delayed release RxNorm: 135352 Capsule(s) TAKE 1 CAP SEAN BY MOUTH EVERY DAY 01/17/2018 01/20/2018 Inactive Generic For:PRILOSEC 20MG 0 07/22/2017 8:58:20 AM omeprazole 20 mg cap sean,delayed release RxNorm: 091408 Capsule(s) TAKE 1 CAP SEAN BY MOUTH EVERY DAY 01/14/2018 01/16/2018 Inactive Generic For:PRILOSEC 20MG 07/22/2017 8:58:20 AM Plavix 75 mg tablet RxNorm: 329731 1 Tablet(s) PO daily 01/07/2018 07/05/2018 Inactive clonazepam 0.5 mg ta blet RxNorm: 508243 1 Tablet(s) PO BID 01/07/2018 06/05/2018 Inactive Carafate 1 gram tablet RxNorm: 426849 1 Tablet(s) PO AC & HS 01/04/2018 01/17/2018 Inactive Lasix 20 mg tablet RxNorm: 422477 TAKE ONE TABLET BY MOUTH DAILY 12/20/2017 04/17/2018 In active Generic For:LASIX 20MG 12/20/2017 9:11: 03 AM sodium bicarbonate 6 50 mg tablet RxNorm: 156329 TAKE 2 TABLETS BY JAVON TH TWICE DAILY 12/20/2017 06/17/2018 In active 12/20/2017 9:10:59 AM Carafate 1 gram tablet RxNorm: 998478 TAKE ONE TABLET BY MOUTH TWICE DAILY 12/20/2017 01/17/2018 In active Generic For:CARAFATE 1GM 12/20/2017 9:1 0:56 AM Synthroid 137 mcg ta blet RxNorm: 025138 TAKE 1 TABLET BY MOUT H ONCE DAILY 11/19/2017 05/17/2018 In active Generic For:SYNTHROID 137MCG TAB 2017 8:58:04 AM Detrol LA 4 mg capsu le,extended release RxNorm: 773620 TAKE 1 CAPSULE BY JAVON TH ONCE DAILY 10/20/2017 04/13/2018 Inactive Generic For:DETROL LA 4MG C AP 10/20/2017 9:01:56 AM allopurinol 300 mg t ablet RxNorm: 421679 TAKE 1 TABLET BY MOUT H ONCE DAILY. 10/20/2017 04/17/2018 In active Generic For:ZYLOPRIM 300 MG TABLET 07/2017 9:01:59 AM Coumadin 5 mg tablet RxNorm: 533441 1 Tablet(s) PO UD 10/01/2017 03/20/2018 Inactive cyclobenzaprine 5 mg tablet RxNorm: 286769 1 Tablet(s) PO TID as needed myscle spasm 09/23/2017 10/12/2017 Inactive Lipitor 40 mg tablet RxNorm: 688497 TAKE 1 TABLET BY MOUTH ONCE DAILY 09/20/2017 09/14/2018 Ac tive Generic For:LIPITOR 40MG 09/20/2017 8:5 6:04 AM atenolol 100 mg tablet RxNorm: 858809 1 Tablet(s) PO daily 08/30/2017 02/03/2018 Inactive atenolol 50 mg tablet RxNorm: 238073 1 Tablet(s) PO daily 08/30/2017 08/30/2017 Inactive Lovenox 30 mg/0.3 mL subcutaneous syringe RxNorm: 437694 0.3 Milliliter(s) SQ Q12H 08/24/2017 09/06/2017 In active Lasix 20 mg tablet RxNorm: 703629 TAKE ONE TABLET BY MOUTH DAILY 08/23/2017 12/19/2017 In active Generic For:LASIX 20MG 08/21/2017 9:04: 27 AM Synthroid 137 mcg ta blet RxNorm: 352137 TAKE 1 TABLET BY MOUT H ONCE DAILY 08/23/2017 11/18/2017 In active Generic For:SYNTHROID 137MCG TAB 2017 9:04:30 AM Lovenox 30 mg/0.3 mL subcutaneous syringe RxNorm: 655808 0.3 Milliliter(s) SQ Q12H 08/10/2017 08/23/2017 In active clonazepam 0.5 mg ta blet RxNorm: 193961 1 Tablet(s) PO BID 08/04/2017 12/30/2017 Inactive Coumadin 4 mg tablet RxNorm: 214323 TAKE 1 TABLET BY MOUTH THREE TIMES PER [place] RESERVATION (WEDNESDAY, WEDNESDAY AND WEDNESDAY) 07/22/2017 02/16/2018 Inactive Generic For:COUMADIN 4MG 07/22/2017 8:58:26 AM omeprazole 20 mg cap sean,delayed release RxNorm: 865506 TAKE 1 CAPSULE BY JAVON TH EVERY DAY 07/22/2017 01/13/2018 Inactive Generic For:PRILOSEC 20MG 07/22/2017 8: 58:20 AM Coumadin 4 mg tablet RxNorm: 209520 TAKE 1 TABLET BY MOUTH THREE TIMES PER [place] RESERVATION (WEDNESDAY, WEDNESDAY AND WEDNESDAY) 07/22/2017 02/16/2018 Inactive Generic For:COUMADIN 4MG 07/22/2017 8:58:26 AM sodium bicarbonate 6 50 mg tablet RxNorm: 927022 TAKE 2 TABLETS BY JAVON TH TWICE DAILY 06/22/2017 12/18/2017 In active 06/19/2017 12:23:30 PM venlafaxine ER 75 mg capsule,extended release 24 hr RxNorm: 013221 TAKE 1 CAPSULE BY MOUTH ONCE DAILY 06/22/2017 06/16/2018 Inactive Generic For:*EFFEXOR XR 75M G 06/19/2017 12:23:45 PM Coumadin 5 mg tablet RxNorm: 318408 1 Tablet(s) PO UD 06/01/2017 09/30/2017 Inactive Keflex 500 mg capsule RxNorm: 609361 1 Capsule(s) PO TID 05/27/2017 06/02/2017 Inactive Synthroid 137 mcg ta blet RxNorm: 621888 TAKE 1 TABLET BY MOUT H ONCE DAILY 05/24/2017 08/21/2017 In active Generic For:SYNTHROID 137MCG TAB 2016 8:55:59 AM Carafate 1 gram tablet RxNorm: 528678 TAKE ONE TABLET BY MOUTH TWICE DAILY 05/24/2017 12/19/2017 In active Generic For:CARAFATE 1GM 05/24/2017 8:5 5:54 AM spironolactone 25 mg tablet RxNorm: 700035 1 Tablet(s) PO daily 05/24/2017 05/17/2018 Inactive Detrol LA 4 mg capsu le,extended release RxNorm: 983292 1 Capsule(s) PO daily TAKE 1 CAPSULE BY MOUTH ONCE DAILY 05/10/2017 10/19/2017 Inactive Generic For:DETROL LA 4MG CAP 02/19/2017 2:36:00 PM Lasix 20 mg tablet RxNorm: 732479 TAKE ONE TABLET BY MOUTH DAILY 04/23/2017 08/20/2017 In active Generic For:LASIX 20MG 04/23/2017 9:04: 01 AM Coumadin 4 mg tablet RxNorm: 535735 TAKE 1 TABLET BY MOUTH THREE TIMES PER [place] RESERVATION (WEDNESDAY, WEDNESDAY AND WEDNESDAY) 04/23/2017 07/21/2017 Inactive Generic For:COUMADIN 4MG 04/23/2017 9:04:05 AM allopurinol 300 mg t ablet RxNorm: 758021 TAKE 1 TABLET BY MOUT H ONCE DAILY. 04/23/2017 10/19/2017 In active Generic For:ZYLOPRIM 300 MG TABLET 08/2016 9:03:57 AM potassium chloride 2 0 mEq/15 mL oral liquid RxNorm: 055861 Milliliter(s) 30 Milliliter(s) (40mEq) PO daily 03/24/2017 07/21/2017 Inactive Lovenox 30 mg/0.3 mL subcutaneous syringe RxNorm: 585627 0.3 Milliliter(s) SQ Q12H 03/22/2017 03/26/2017 In active Lovenox 30 mg/0.3 mL subcutaneous syringe RxNorm: 435165 0.3 Milliliter(s) SQ Q12H 03/19/2017 03/20/2017 In active Lovenox 30 mg/0.3 mL subcutaneous syringe RxNorm: 677651 0.3 Milliliter(s) SQ Q12H 03/16/2017 03/18/2017 In active clonazepam 0.5 mg ta blet RxNorm: 800189 1 Tablet(s) PO BID 03/02/2017 07/28/2017 Inactive Lovenox 30 mg/0.3 mL subcutaneous syringe RxNorm: 055429 1 injection SQ BID do NOT take the night time dose the day before surgery, or the morning dose the day of surgery 03/01/2017 03/07/2017 Inactive Lovenox 30 mg/0.3 mL subcutaneous syringe RxNorm: 502419 1 injection SQ BID 03/01/2017 02/28/2017 In active Detrol LA 4 mg capsu le,extended release RxNorm: 983791 TAKE 1 CAPSULE BY JAVON TH ONCE DAILY 02/19/2017 05/09/2017 Inactive Generic For:DETROL LA 4MG C AP 02/19/2017 2:36:00 PM hydrocodone 5 mg-humberto taminophen 325 mg tablet RxNorm: 918295 1-2 Tablet(s) PO Q6 P RN 02/04/2017 No Stop Date Active Zetia 10 mg tablet RxNorm: 971377 TAKE 1 TABLET BY MOUTH DAILY 01/25/2017 04/13/2018 Inactive 01/23/2017 9:03:48 AM omeprazole 20 mg cap sean,delayed release RxNorm: 023453 TAKE 1 CAPSULE BY JAVON TH EVERY DAY 01/25/2017 07/21/2017 Inactive Generic For:PRILOSEC 20MG 01/23/2017 9: 03:45 AM Coumadin 4 mg tablet RxNorm: 592894 TAKE 1 TABLET BY MOUTH THREE TIMES PER [place] RESERVATION (WEDNESDAY, WEDNESDAY AND WEDNESDAY) 01/25/2017 04/22/2017 Inactive Generic For:COUMADIN 4MG 01/23/2017 9:03:51 AM sodium bicarbonate 6 50 mg tablet RxNorm: 361190 TAKE 2 TABLETS BY JAVON TH TWICE DAILY 12/24/2016 06/21/2017 In active 12/24/2016 9:09:27 AM Lasix 20 mg tablet RxNorm: 619045 1 Tablet(s) PO daily 12/24/2016 04/22/2017 Inactive Synthroid 137 mcg ta blet RxNorm: 012231 TAKE 1 TABLET BY MOUT H ONCE DAILY 11/24/2016 05/22/2017 In active Generic For:SYNTHROID 137MCG TAB 2016 9:04:37 AM Coumadin 4 mg tablet RxNorm: 229377 TAKE 1 TABLET BY MOUTH THREE TIMES PER [place] RESERVATION (WEDNESDAY, WEDNESDAY AND WEDNESDAY) 11/24/2016 01/22/2017 Inactive Generic For:COUMADIN 4MG 11/24/2016 9:04:41 AM hydrocodone 5 mg-humberto taminophen 325 mg tablet RxNorm: 476110 1-2 Tablet(s) PO Q6 P RN 11/17/2016 02/03/2017 In active Carafate 1 gram tablet RxNorm: 251892 TAKE ONE TABLET BY MOUTH TWICE DAILY 10/27/2016 05/23/2017 In active Generic For:CARAFATE 1GM 10/26/2016 8:3 9:42 AM allopurinol 300 mg t ablet RxNorm: 034818 Tablet(s) TAKE 1 TABL ET BY MOUTH ONCE DAILY. 10/26/2016 04/22/2017 Inactive Lipitor 40 mg tablet RxNorm: 393483 1 Tablet(s) PO daily 09/25/2016 09/19/2017 Inactive Coumadin 4 mg tablet RxNorm: 397270 TAKE 1 TABLET BY MOUTH THREE TIMES PER [place] RESERVATION (WEDNESDAY, WEDNESDAY AND WEDNESDAY) 09/25/2016 11/23/2016 Inactive Generic For:COUMADIN 4MG 09/25/2016 8:55:58 AM Zetia 10 mg tablet RxNorm: 893417 1 Tablet(s) PO daily 09/25/2016 01/22/2017 Inactive gave 1 month of samples clonazepam 0.5 mg ta blet RxNorm: 593565 1 Tablet(s) PO BID 09/21/2016 02/16/2017 Inactive Lasix 20 mg tablet RxNorm: 768761 1 Tablet(s) PO daily 09/15/2016 12/23/2016 Inactive potassium chloride 2 0 mEq/15 mL oral liquid RxNorm: 245210 Milliliter(s) 30 Milliliter(s) (40mEq) PO daily 09/15/2016 01/12/2017 Inactive Lasix 20 mg tablet RxNorm: 028046 2 Tablet(s) PO daily 09/10/2016 09/12/2016 Inactive Lasix 20 mg tablet RxNorm: 414223 1 Tablet(s) PO daily 08/28/2016 08/30/2016 Inactive Lasix 20 mg tablet RxNorm: 526772 1 Tablet(s) PO daily 08/20/2016 08/22/2016 Inactive Detrol LA 4 mg capsu le,extended release RxNorm: 643520 TAKE 1 CAPSULE BY JAVON TH ONCE DAILY 07/27/2016 02/18/2017 Inactive Generic For:DETROL LA 4MG C AP 07/27/2016 9:08:27 AM Coumadin 4 mg tablet RxNorm: 172742 1 Tablet(s) PO 3 x week wed and sun 07/27/2016 09/24/2016 In active omeprazole 20 mg cap sean,delayed release RxNorm: 296708 Capsule(s) PO TAKE 1 CAPSULE BY MOUTH ONCE DAILY 07/27/2016 01/22/2017 Inactive venlafaxine ER 75 mg capsule,extended release 24 hr RxNorm: 679081 1 Capsule(s) PO daily 06/29/2016 06/21/2017 Inactive sodium bicarbonate 6 50 mg tablet RxNorm: 252346 TAKE 2 TABLETS BY [facility] TWICE DAILY 06/29/2016 12/23/2016 In active 06/27/2016 9:05:39 AM Coumadin 4 mg tablet RxNorm: 276164 1 Tablet(s) PO 3 x week wed and sun 06/09/2016 06/08/2016 In active Coumadin 4 mg tablet RxNorm: 315307 1 Tablet(s) PO 3 x week e and sun 06/09/2016 07/26/2016 In active Zetia 10 mg tablet RxNorm: 463318 1 Tablet(s) PO daily 06/09/2016 06/08/2016 Inactive gave 1 month of samples Zetia 10 mg tablet RxNorm: 137556 1 Tablet(s) PO daily 06/09/2016 09/24/2016 Inactive gave 1 month of samples Effexor 75 mg tablet RxNorm: 471656 1 Tablet(s) PO daily 06/08/2016 06/28/2016 Inactive spironolactone 25 mg tablet RxNorm: 738594 1 Tablet(s) PO daily 06/08/2016 05/23/2017 Inactive Synthroid 137 mcg ta blet RxNorm: 472602 1 Tablet(s) PO daily 05/07/2016 11/02/2016 Inactive allopurinol 300 mg t ablet RxNorm: 783747 Tablet(s) TAKE 1 TABL ET BY MOUTH ONCE DAILY. 04/28/2016 10/24/2016 Inactive clonazepam 0.5 mg ta blet RxNorm: 505674 1 Tablet(s) PO BID 04/20/2016 09/15/2016 Inactive Flonase Allergy Reli ef 50 mcg/actuation nasal spray,suspension RxNorm: 8580604 1 [place] NASAL BID 04/02/2016 No Stop Date Active Zithromax Z-Thomas 250 mg tablet RxNorm: 886182 Tablet(s) PO 04/02/2016 08/27/2016 Inactive cetirizine 10 mg tablet RxNorm: 0352712 1 Tablet(s) PO daily 04/02/2016 05/01/2016 Inactive Carafate 1 gram tablet RxNorm: 753128 Tablet(s) TAKE 1 TABLET TWICE A DAY FOR 30 DAYS 03/30/2016 10/25/2016 Inactive Generic For:CARAFATE 1GM 02/08/2015 12:3 6:39 PM Plavix 75 mg tablet RxNorm: 021895 1 Tablet(s) PO daily 03/11/2016 09/06/2016 Inactive sodium bicarbonate 6 50 mg tablet RxNorm: 375586 Tablet(s) 2 Tablet(s) PO BID 02/28/2016 06/26/2016 In active omeprazole 20 mg cap sean,delayed release RxNorm: 182880 Capsule(s) PO TAKE 1 CAPSULE BY MOUTH ONCE DAILY 01/31/2016 07/26/2016 Inactive Fish Oil 1,000 mg ca psule RxNorm: 1 Capsule(s) PO BID 01/14/2016 No Stop Date Active Synthroid 137 mcg ta blet RxNorm: 173992 1 Tablet(s) PO daily 01/14/2016 05/06/2016 Inactive Detrol LA 4 mg capsu le,extended release RxNorm: 100274 TAKE 1 CAPSULE BY JAVON TH ONCE DAILY 12/30/2015 07/26/2016 Inactive Generic For:DETROL LA 4MG C AP 12/30/2015 9:11:01 AM potassium chloride 2 0 mEq/15 mL oral liquid RxNorm: 530011 Milliliter(s) 30 Milliliter(s) (40mEq) PO daily 12/02/2015 03/30/2016 Inactive sodium bicarbonate 6 50 mg tablet RxNorm: 038487 Tablet(s) 2 Tablet(s) PO BID 10/31/2015 02/27/2016 In active Lipitor 40 mg tablet RxNorm: 011437 1 Tablet(s) PO daily 10/09/2015 09/24/2016 Inactive sodium bicarbonate 6 50 mg tablet RxNorm: 008572 2 Tablet(s) PO BID 10/01/2015 10/30/2015 Inactive allopurinol 300 mg t ablet RxNorm: 223615 TAKE 1 TABLET BY MOUT H ONCE DAILY. 10/01/2015 04/27/2016 In active Generic For:ZYLOPRIM 300 MG TABLET 09/19 9:21:15 AM clonazepam 0.5 mg ta blet RxNorm: 896674 1 Tablet(s) PO BID 09/30/2015 04/19/2016 Inactive Coumadin 5 mg tablet RxNorm: 402594 1 Tablet(s) PO daily 09/27/2015 05/31/2017 Inactive Generic For:COUMADIN 5MG TAB N O T I C E PRESCRIPTION PREVIOUSLY AUTHORIZED BY DOCTOR:BOBBY ZULETA Synthroid 125 mcg ta blet RxNorm: 246420 1 Tablet(s) PO daily 09/27/2015 09/26/2015 Inactive Synthroid 125 mcg ta blet RxNorm: 718809 1 Tablet(s) PO daily 09/27/2015 01/13/2016 Inactive Carafate 1 gram tablet RxNorm: 125444 Tablet(s) TAKE 1 TABLET TWICE A DAY FOR 30 DAYS 09/02/2015 03/29/2016 Inactive Generic For:CARAFATE 1GM 02/08/2015 12:3 6:39 PM sodium bicarbonate 6 50 mg tablet RxNorm: 875611 2 Tablet(s) PO BID 09/02/2015 09/30/2015 Inactive Prilosec 20 mg capsu le,delayed release RxNorm: 823991 TAKE 1 CAPSULE BY JAVON TH ONCE DAILY 08/02/2015 01/28/2016 Inactive Generic For:PRILOSEC 20MG 08/02/2015 10:03:09 AM N O T I C E PRESCRIPTION PREVIOUSLY AUTHORIZED BY DOCTOR:BOBBY ZULETA Zyrtec 10 mg capsule RxNorm: 5612167 1 Capsule(s) PO daily 07/15/2015 08/13/2015 Inactive Keflex 500 mg capsule RxNorm: 806943 1 Capsule(s) PO TID 07/15/2015 07/21/2015 Inactive cetirizine 10 mg cap sean RxNorm: 1981358 1 Capsule(s) PO daily 07/15/2015 08/13/2015 Inactive hydrocodone 5 mg-humberto taminophen 325 mg tablet RxNorm: 118949 1-2 Tablet(s) PO Q6 P RN 06/10/2015 11/16/2016 In active sodium bicarbonate 6 50 mg tablet RxNorm: 452701 2 Tablet(s) PO BID 06/03/2015 08/31/2015 Inactive Detrol LA 4 mg capsu le,extended release RxNorm: 450555 TAKE 1 CAPSULE BY JAVON TH ONCE DAILY 06/03/2015 12/29/2015 Inactive Generic For:DETROL LA 4MG C AP N O T I C E PRESCRIPTION PREVIOUSLY AUTHORIZED BY DOCTOR:BOBBY ZULETA atenolol 50 mg tablet RxNorm: 935987 1 Tablet(s) PO daily TAKE 1 TABLET BY MO UTH DAILY 05/07/2015 08/23/2017 Inactive Generic For:TENORMIN 50MG 05/04/2015 9:07:22 AM spironolactone 25 mg tablet RxNorm: 225398 1 Tablet(s) PO daily 05/06/2015 06/07/2016 Inactive venlafaxine ER 75 mg capsule,extended release 24 hr RxNorm: 459612 1 Capsule(s) PO daily 05/04/2015 06/28/2016 Inactive atenolol 50 mg tablet RxNorm: 641539 TAKE 1 TABLET BY MOUTH DAILY 05/04/2015 05/06/2015 Inactive Generic For:TENORMIN 50MG 05/04/2015 9: 07:22 AM Synthroid 150 mcg ta blet RxNorm: 284164 TAKE 1 TABLET BY MOUT H ONCE DAILY. 04/05/2015 09/26/2015 In active Generic For:SYNTHROID 150MCG TAB 2014 4:45:40 PM N O T I C E PRESCRIPTION PREVIOUSLY AUTHORIZED BY DOCTOR:BOBBY ZULETA Effexor 75 mg tablet RxNorm: 394075 1 Tablet(s) PO daily 04/05/2015 07/03/2015 Inactive Coumadin 5 mg tablet RxNorm: 261509 TAKE 1 AND 1/2 TABLETS BY MOUTH ONCE MYRANDA LY 04/04/2015 09/26/2015 In active Generic For:COUMADIN 5MG TAB N O T I C E PRESCRIPTION PREVIOUSLY AUTHORIZED BY DOCTOR:BOBBY ZULETA clonazepam 0.5 mg ta blet RxNorm: 563962 1 Tablet(s) PO BID 03/13/2015 11/05/2015 Inactive sodium bicarbonate 6 50 mg tablet RxNorm: 201082 2 Tablet(s) PO BID 03/08/2015 06/02/2015 Inactive allopurinol 300 mg t ablet RxNorm: 602169 TAKE 1 TABLET BY MOUT H ONCE DAILY. 03/05/2015 09/30/2015 In active N O T I C E PRESCRIPTION PREVIOUSLY A UTHORIZED BY DOCTOR:BOBBY ZULETA Plavix 75 mg tablet RxNorm: 758354 1 Tablet(s) PO daily 02/12/2015 09/09/2015 Inactive clonazepam 0.5 mg ta blet RxNorm: 018835 1 Tablet(s) PO BID 02/11/2015 03/11/2015 Inactive Carafate 1 gram tablet RxNorm: 048472 TAKE 1 TABLET TWICE A DAY FOR 30 DAYS 02/08/2015 02/07/2015 In active Generic For:CARAFATE 1GM 02/08/2015 12:3 6:39 PM Carafate 1 gram tablet RxNorm: 863816 Tablet(s) TAKE 1 TABLET TWICE A DAY FOR 30 DAYS 02/08/2015 09/01/2015 Inactive Generic For:CARAFATE 1GM 02/08/2015 12:3 6:39 PM potassium chloride 2 0 mEq/15 mL oral liquid RxNorm: 735398 30 Milliliter(s) (40m Eq) PO daily 02/05/2015 12/01/2015 Inactive atenolol 50 mg tablet RxNorm: 348761 1 Tablet(s) PO daily 02/04/2015 05/03/2015 Inactive [SAVINGS FOR NON-COVERED DRUGS -- BIN:00 3585, PCN: [id number], Group: XXXXX, ID# XXXXXXX, Questions: . THIS IS NOT INSURANCE.] potassium chloride 2 0 mEq/15 mL oral liquid RxNorm: 536133 30 Milliliter(s) (40m Eq) PO daily 01/08/2015 02/04/2015 Inactive potassium chloride 2 0 mEq/15 mL oral liquid RxNorm: 356258 30 Milliliter(s) (40m Eq) PO daily 12/07/2014 01/07/2015 Inactive atenolol 50 mg tablet RxNorm: 588429 1 Tablet(s) PO daily 11/09/2014 11/08/2014 Inactive atenolol 50 mg tablet RxNorm: 152391 1 Tablet(s) PO daily 11/09/2014 02/03/2015 Inactive [SAVINGS FOR NON-COVERED DRUGS -- BIN:00 3585, PCN: ASPROD1, Group: XXXXX, ID# [id number], Questions: . THIS IS NOT INSURANCE.] Voltaren 1 % topical gel RxNorm: 981719 TOP No St art Date Active verapamil ER (HS) 24 0 mg tablet,extended release 24 hr RxNorm: 532341 1 Tablet(s) PO daily No Start Date Active aspirin 81 mg tablet RxNorm: 780529 1 Tablet(s) PO daily No Start Date Active Zofran 4 mg tablet RxNorm: 217116 1 Tablet(s) PO PRN No Start Date Active B12 1000 mcg RxNorm: 1 Tablet(s) PO daily No Start Date Active magnesium oxide 400 mg capsule RxNorm: 107133 2 Capsule(s) PO BID No Start Date Active Synthroid 150 mcg ta blet RxNorm: 591129 1 Tablet(s) PO daily No Start Date 04/04/2015 Inactive Coumadin 5 mg tablet RxNorm: 411224 1 Tablet(s) PO daily No Start Date 04/03/2015 Inactive cranberry 1,000 mg c apsule RxNorm: 812854 1 Capsule(s) PO daily No Start Date 04/13/2018 Inactive allopurinol 300 mg t ablet RxNorm: 526473 1 Tablet(s) PO daily No Start Date 03/04/2015 Inactive Prilosec 20 mg capsu le,delayed release RxNorm: 569612 1 Capsule(s) PO PRN No Start Date 08/01/2015 Inactive potassium chloride 2 0 mEq/15 mL oral liquid RxNorm: 949840 30 Milliliter(s) (40m Eq) PO daily No Start Date 12/06/2014 Inactive atenolol 50 mg tablet RxNorm: 785932 1 Tablet(s) PO daily No Start Date 08/29/2017 Inactive Lipitor 40 mg tablet RxNorm: 649345 1 Tablet(s) PO daily No Start Date 09/19/2017 Inactive Effexor 75 mg tablet RxNorm: 817194 1 Tablet(s) PO daily No Start Date 04/04/2015 Inactive Carafate 1 gram tablet RxNorm: 735075 1 Tablet(s) PO BID No Start Date 02/07/2015 Inactive clonazepam 0.5 mg ta blet RxNorm: 870793 1 Tablet(s) PO BID No Start Date 02/10/2015 Inactive Plavix 75 mg tablet RxNorm: 577141 1 Tablet(s) PO daily No Start Date 02/11/2015 Inactive sodium bicarbonate 6 50 mg tablet RxNorm: 648660 2 Tablet(s) PO BID No Start Date 09/01/2015 Inactive Lovenox 30 mg/0.3 mL subcutaneous syringe RxNorm: 998885 0.3 Milliliter(s) SQ Q12H No Start Date 03/15/2017 Inactive Fish Oil 1,000 mg ca psule RxNorm: 1 Capsule(s) PO daily No Start Date 01/13/2016 Inactive Detrol LA 4 mg capsu le,extended release RxNorm: 076647 1 Capsule(s) PO daily No Start Date 06/02/2015 Inactive Medication Administered No Medication Administered data Immunizations Vaccine Codes Date Status SHINGARIX CVX: 121 03/23 completed Assessments Condition Codes Effectiv e Dates Hypothyroidism, unspecified ICD-10: E03.9 ICD-9: 244.9 04/14/2018 Impaired fasting glucose ICD-10: R73 .01 ICD-9: 790.21 04/14/2018 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 ICD-10: Z79.01 ICD-9: V58.61 04/14/2018 Essential (primary) hypertension ICD -10: I10 ICD-9: 401.9 04/14/2018 Gastro-esophageal reflux disease without esophagitis ICD-10: [...] 11 ICD-9: 719.41 06/10/2015 Snoring ICD-9: 786.09 ESSENTIAL HYPERTENSION ICD-9: 401.9 01/22/2015 ENCNTR LONG-RX USE NEC ICD-9: V58.69 01/22/2015 HYPERLIPIDEMIA ICD-9: 272.4 01/22/2015 HYPOTHYROIDISM ICD-9: 244.9 01/22/2015 Vitamin B12 deficiency ICD-9: 266.2 01/22/2015 Status post gastric surgery ICD-9: V45.89 01/22/2015 Reason For Visit Reason For Visit [...] Code Item Item Code Result Date Pt Opy6342 PT 30.2 seconds 07/25/2018 Pt Qxp8599 INR 2.9 07/25/2018 Pt Enn2896 Low Intensity - 1.5-2.0 07/25/2018 Pt Pdn4351 Mod intensity - 2.0-3.0 07/25/2018 Pt Haj0416 Hi intensity - 3.0-4.0 07/25/2018 Pt Xyv5374 PT 25.2 seconds 07/19/2018 Pt Xib1456 INR 2.3 07/19/2018 Pt Bvj1844 Low Intensity - 1.5-2.0 07/19/2018 Pt Vtt4495 Mod intensity - 2.0-3.0 07/19/2018 Pt Xps9373 Hi intensity - 3.0-4.0 07/19/2018 Pt Wio0065 PT 17.4 seconds 07/15/2018 Pt Wzb5265 INR 1.5 07/15/2018 Pt Nkg8592 Low Intensity - 1.5-2.0 07/15/2018 Pt Ddx1810 Mod intensity - 2.0-3.0 07/15/2018 Pt Sdt8402 Hi intensity - 3.0-4.0 07/15/2018 Pt Atk4735 PT 17.8 seconds 07/08/2018 Pt Ynp3885 INR 1.5 07/08/2018 Pt Cpx3014 Low Intensity - 1.5-2.0 07/08/2018 Pt Bdv0098 Mod intensity - 2.0-3.0 07/08/2018 Pt Bzn0271 Hi intensity - 3.0-4.0 07/08/2018 Pt Doa3340 PT 19.2 seconds 07/01/2018 Pt Nfn4394 INR 1.7 07/01/2018 Pt Lim6996 Low Intensity - 1.5-2.0 07/01/2018 Pt Uys9015 Mod intensity - 2.0-3.0 07/01/2018 Pt Wtk1481 Hi intensity - 3.0-4.0 07/01/2018 Pt Kzl7692 PT 17.4 seconds 06/23/2018 Pt Mxd0516 INR 1.5 06/23/2018 Pt Nap5126 Low Intensity - 1.5-2.0 06/23/2018 Pt Rzi2347 Mod intensity - 2.0-3.0 06/23/2018 Pt Sqg5199 Hi intensity - 3.0-4.0 06/23/2018 Pt Ksw7680 PT 18.4 seconds 06/17/2018 Pt Yrp3089 INR 1.6 06/17/2018 Pt Xqd8289 Low Intensity - 1.5-2.0 06/17/2018 Pt Kfl0549 Mod intensity - 2.0-3.0 06/17/2018 Pt Wec0131 Hi intensity - 3.0-4.0 06/17/2018 Cbc With Differential Ord2 WBC 5.45 K/ul [...] 30.4 pg 06/08/2018 Cbc With Differential Ord2 [place]% 9.4 % 06/08/2018 Cbc With Differential Ord2 [...] 1.20 K/ul 06/08/2018 Cbc With Differential Ord2 [place] ABS# 0.5 K/ul 06/08/2018 Cbc With Differential Ord2 Eos ABS# 0.1 K/ul 06/08/2018 Cbc With Differential Ord2 Baso ABS# 0.1 K/ul 06/08/2018 Pt Ixh3998 PT 17.6 seconds 06/08/2018 Pt Ppo3931 INR 1.5 06/08/2018 Pt Uph1858 Low Intensity - 1.5-2.0 06/08/2018 Pt Srf4022 Mod intensity - 2.0-3.0 06/08/2018 Pt Jua3582 Hi intensity - 3.0-4.0 06/08/2018 C-Reactive Protein Qnt Crqnt CRP 0.1 mg/dl 06/08/2018 Sed Rate Ord21 ESR 5 mm/hr 06/08/2018 Pt Qvj2075 PT 16.8 seconds 05/10/2018 Pt Jbr0230 INR 1.4 05/10/2018 Pt Qfb5864 Low Intensity - 1.5-2.0 05/10/2018 Pt Scc8236 Mod intensity - 2.0-3.0 05/10/2018 Pt Aig4217 Hi intensity - 3.0-4.0 05/10/2018 Pt Atf2749 PT 16.7 seconds 05/04/2018 Pt Znd2410 INR 1.4 05/04/2018 Pt Iae8001 Low Intensity - 1.5-2.0 05/04/2018 Pt Ryc2042 Mod intensity - 2.0-3.0 05/04/2018 Pt Btq1229 Hi intensity - 3.0-4.0 05/04/2018 Lipid Ord30 CHOL 149 mg/dL 04/14/2018 Lipid Ord30 HDL 49.0 mg/dl 04/14/2018 Lipid Ord30 TRIG 161 mg/dL 04/14/2018 Lipid Ord30 LDL 68 mg/dL 04/14/2018 Lipid Ord30 C/HDL 3.0 Ratio 04/14/2018 Free T4 Gel259 FREE T4 1.09 ng/dL 04/14/2018 Tsh Ord6 TSH (3rd IS) 2.36 uIU/mL 04/14/2018 Pt Ksl7257 PT 20.3 seconds 04/14/2018 Pt Wrd1180 INR 1.8 04/14/2018 Pt Mgg8227 Low Intensity - 1.5-2.0 04/14/2018 Pt Nmk3158 Mod intensity - 2.0-3.0 04/14/2018 Pt Pkf0176 Hi intensity - 3.0-4.0 04/14/2018 %Hba1C Ncl433 % HbA1c 57354-6 5.9 % 04/14/2018 %Hba1C Epm508 Gluc Ave 123 mg/dL 04/14/2018 Comp Metabolic Wqg956 NA 140 mEq/L 04/14/2018 Comp Metabolic Pzk027 K 4.1 mEq/L 04/14/2018 Comp Metabolic Aui581 CL 105 mEq/L 04/14/2018 Comp Metabolic Tqy702 CO2 28.0 mEq/L 04/14/2018 Comp Metabolic Ink629 AN ION GAP 11 04/14/2018 Comp Metabolic Xjt040 GL UCOSE 112 mg/dL 04/14/2018 Comp Metabolic Hii668 Cr eat 1.0 mg/dL 04/14/2018 Comp Metabolic Rxh847 eG FR 58 ml/min/1.73m2 04/14 Comp Metabolic Ppj781 BUN 20 mg/dL 04/14/2018 Comp Metabolic Acm460 B/ C Ratio 20.2 Ratio 04/14/2018 Comp Metabolic Bob373 CA LCIUM 10.0 mg/dL 04/14/2018 Comp Metabolic Wqk213 AL K PHOS 51 U/L 04/14/2018 Comp Metabolic Ect660 T(SGOT) 24 U/L 04/14/2018 Comp Metabolic Hqz552 AL T(SGPT) 21 U/L 04/14/2018 Comp Metabolic Lvj057 BI LI T 0.8 mg/dL 04/14/2018 Comp Metabolic Heg011 AL BUMIN 4.2 g/dL 04/14/2018 Comp Metabolic Utq127 TP RO 7.1 g/dL 04/14/2018 Comp Metabolic Clg140 GL OB 2.9 g/dL 04/14/2018 Comp Metabolic Gvd913 A/ G Ratio 1.5 Ratio 04/14/2018 Comp Metabolic Rov365 Os mo 283 mOsmo 04/14/2018 Cbc With [...] 30.7 pg 04/14/2018 Cbc With Differential Ord2 [place]% 10.6 % 04/14/2018 Cbc With Differential Ord2 [...] 1.18 K/ul 04/14/2018 Cbc With Differential Ord2 [place] ABS# 0.5 K/ul 04/14/2018 Cbc With Differential Ord2 Eos ABS# 0.2 K/ul 04/14/2018 Cbc With Differential Ord2 Baso ABS# 0.1 K/ul 04/14/2018 Pt Occ2635 PT 29.3 seconds 02/11/2018 Pt Awd6452 INR 2.8 02/11/2018 Pt Nul3341 Low Intensity - 1.5-2.0 02/11/2018 Pt Wdv9166 Mod intensity - 2.0-3.0 02/11/2018 Pt Hft8260 Hi intensity - 3.0-4.0 02/11/2018 Comp Metabolic Kpq846 NA 141 mEq/L 01/05/2018 Comp Metabolic Fyw872 K 3.7 mEq/L 01/05/2018 Comp Metabolic Rjn451 CL 102 mEq/L 01/05/2018 Comp Metabolic Avj232 CO2 29.0 mEq/L 01/05/2018 Comp Metabolic Ogo811 AN ION GAP 14 01/05/2018 Comp Metabolic Bws985 GL UCOSE 136 mg/dL 01/05/2018 Comp Metabolic Jbv540 Cr eat 1.0 mg/dL 01/05/2018 Comp Metabolic Hun866 eG FR 61 ml/min/1.73m2 01/05 Comp Metabolic Knt428 BUN 22 mg/dL 01/05/2018 Comp Metabolic Hkt720 B/ C Ratio 22.9 Ratio 01/05/2018 Comp Metabolic Ebu366 CA LCIUM 9.7 mg/dL 01/05/2018 Comp Metabolic Fis087 AL K PHOS 57 U/L 01/05/2018 Comp Metabolic Iyf469 T(SGOT) 21 U/L 01/05/2018 Comp Metabolic Ugf437 AL T(SGPT) 19 U/L 01/05/2018 Comp Metabolic Fas592 BI LI T 0.9 mg/dL 01/05/2018 Comp Metabolic Wat584 AL BUMIN 4.1 g/dL 01/05/2018 Comp Metabolic Ofs985 TP RO 7.1 g/dL 01/05/2018 Comp Metabolic Mge680 GL OB 3.0 g/dL 01/05/2018 Comp Metabolic Inw660 A/ G Ratio 1.4 Ratio 01/05/2018 Comp Metabolic Vxw009 Os mo 287 mOsmo 01/05/2018 Free T4 Acr226 FREE T4 1.05 ng/dL 01/05/2018 Cbc With Differential Ord2 WBC 4.66 [...] 30.6 pg 01/05/2018 Cbc With Differential Ord2 [place]% 10.5 % 01/05/2018 Cbc With Differential Ord2 [...] 1.27 K/ul 01/05/2018 Cbc With Differential Ord2 [place] ABS# 0.5 K/ul 01/05/2018 Cbc With Differential Ord2 Eos ABS# 0.2 K/ul 01/05/2018 Cbc With Differential Ord2 Baso ABS# 0.1 K/ul 01/05/2018 Pt Gpc9252 PT 20.7 seconds 01/05/2018 Pt Nvi1941 INR 1.8 01/05/2018 Pt Bui1023 Low Intensity - 1.5-2.0 01/05/2018 Pt Nho0315 Mod intensity - 2.0-3.0 01/05/2018 Pt Suk2082 Hi intensity - 3.0-4.0 01/05/2018 Tsh Ord6 TSH (3rd IS) 2.34 uIU/mL 01/05/2018 Lipid Ord30 CHOL 156 mg/dL 01/05/2018 Lipid Ord30 HDL 48.0 mg/dl 01/05/2018 Lipid Ord30 TRIG 207 mg/dL 01/05/2018 Lipid Ord30 LDL 67 mg/dL 01/05/2018 Lipid Ord30 C/HDL 3.3 Ratio 01/05/2018 %Hba1C Zio550 % HbA1c 07761-6 6.0 % 01/05/2018 %Hba1C Dtt977 Gluc Ave 126 mg/dL 01/05/2018 Pt Gvh7631 PT 28.3 seconds 11/26/2017 Pt Pvl1497 INR 2.6 11/26/2017 Pt Afu9117 Low Intensity - 1.5-2.0 11/26/2017 Pt Fgs8098 Mod intensity - 2.0-3.0 11/26/2017 Pt Ulq2493 Hi intensity - 3.0-4.0 11/26/2017 Pt Otx5492 PT 36.5 seconds 11/19/2017 Pt Xds6434 INR 3.6 11/19/2017 Pt Xnj8868 Low Intensity - 1.5-2.0 11/19/2017 Pt Den5083 Mod intensity - 2.0-3.0 11/19/2017 Pt Muh6703 Hi intensity - 3.0-4.0 11/19/2017 Pt Dfx3535 PT 22.9 seconds 10/15/2017 Pt Gex2039 INR 2.0 10/15/2017 Pt Ocs2728 Low Intensity - 1.5-2.0 10/15/2017 Pt Hvf2558 Mod intensity - 2.0-3.0 10/15/2017 Pt Hrg0794 Hi intensity - 3.0-4.0 10/15/2017 Pt Npy3953 PT 25.9 seconds 10/01/2017 Pt Xjc2226 INR 2.4 10/01/2017 Pt Ozl7171 Low Intensity - 1.5-2.0 10/01/2017 Pt Zga5420 Mod intensity - 2.0-3.0 10/01/2017 Pt Fmx7974 Hi intensity - 3.0-4.0 10/01/2017 Pt Byd3111 PT 20.6 seconds 09/24/2017 Pt Gaz0445 INR 1.8 09/24/2017 Pt Ams2676 Low Intensity - 1.5-2.0 09/24/2017 Pt Xpd9559 Mod intensity - 2.0-3.0 09/24/2017 Pt Qll6796 Hi intensity - 3.0-4.0 09/24/2017 Pt Oyx0664 PT 21.0 seconds 09/15/2017 Pt Gyl8497 INR 1.8 09/15/2017 Pt Fqk7214 Low Intensity - 1.5-2.0 09/15/2017 Pt Udr8894 Mod intensity - 2.0-3.0 09/15/2017 Pt Ank7998 Hi intensity - 3.0-4.0 09/15/2017 Pt Lfk2033 PT 19.0 seconds 09/03/2017 Pt Bax2954 INR 1.6 09/03/2017 Pt Ufz1039 Low Intensity - 1.5-2.0 09/03/2017 Pt Bgl1206 Mod intensity - 2.0-3.0 09/03/2017 Pt Jzg6427 Hi intensity - 3.0-4.0 09/03/2017 Pt Dqf4174 PT 17.6 seconds 08/23/2017 Pt Myl7402 INR 1.5 08/23/2017 Pt Kbd7706 Low Intensity - 1.5-2.0 08/23/2017 Pt Qbe3654 Mod intensity - 2.0-3.0 08/23/2017 Pt Mpu8988 Hi intensity - 3.0-4.0 08/23/2017 Pt Oxe6842 PT 12.7 seconds 08/20/2017 Pt Qrj5725 INR 1.0 08/20/2017 Pt Fde6402 Low Intensity - 1.5-2.0 08/20/2017 Pt Qgx0390 Mod intensity - 2.0-3.0 08/20/2017 Pt Mro8228 Hi intensity - 3.0-4.0 08/20/2017 Pt Uft0512 PT 12.9 seconds 08/17/2017 Pt Gie9436 INR 1.0 08/17/2017 Pt Nji7948 Low Intensity - 1.5-2.0 08/17/2017 Pt Ywq0117 Mod intensity - 2.0-3.0 08/17/2017 Pt Foo9304 Hi intensity - 3.0-4.0 08/17/2017 Pt Xbo6145 PT 18.5 seconds 08/10/2017 Pt Nxq2226 INR 1.6 08/10/2017 Pt Ctc4449 Low Intensity - 1.5-2.0 08/10/2017 Pt Bto3251 Mod intensity - 2.0-3.0 08/10/2017 Pt Dcf0340 Hi intensity - 3.0-4.0 08/10/2017 %Hba1C Xus188 % HbA1c 31883-4 5.9 % 05/27/2017 %Hba1C Zka177 Gluc Ave 123 mg/dL 05/27/2017 Tsh Ord6 hTSH II 2.08 uIU/mL 05/27/2017 Cbc With Differential Ord2 WBC 7.53 K/ul 05/27/2017 Cbc With Differential Ord2 RBC 4.60 M/ul 05/27/2017 Cbc With Differential Ord2 HGB 13.5 g/dl 05/27/2017 Cbc With Differential Ord2 HCT 40.4 % 05/27/2017 Cbc With Differential Ord2 Neut% 72.9 % 05/27/2017 Cbc With Differential Ord2 Lymph% 14.7 % 05/27/2017 Cbc With Differential Ord2 MCV 87.8 fl 05/27/2017 Cbc With Differential Ord2 [place]% 8.1 % 05/27/2017 Cbc With Differential Ord2 [...] 1.11 K/ul 05/27/2017 Cbc With Differential Ord2 [place] ABS# 0.6 K/ul 05/27/2017 Cbc With Differential Ord2 Eos ABS# 0.2 K/ul 05/27/2017 Cbc With Differential Ord2 Baso ABS# 0.1 K/ul 05/27/2017 Pt Gbk5641 PT 28.2 seconds 05/27/2017 Pt Dpl7596 INR 2.6 05/27/2017 Pt Tbk6511 Low Intensity - 1.5-2.0 05/27/2017 Pt Inr9005 Mod intensity - 2.0-3.0 05/27/2017 Pt Gyj2738 Hi intensity - 3.0-4.0 05/27/2017 Lipid Ord30 CHOL 167 mg/dL 05/27/2017 Lipid Ord30 HDL 49.0 mg/dl 05/27/2017 Lipid Ord30 TRIG 347 mg/dL 05/27/2017 Lipid Ord30 LDL 49 mg/dL 05/27/2017 Lipid Ord30 C/HDL 3.4 Ratio 05/27/2017 Magnesium Ord90 Mag 1.4 mg/dL 05/27/2017 Comp Metabolic Biv537 NA 138 mEq/L 05/27/2017 Comp Metabolic Rra295 K 4.1 mEq/L 05/27/2017 Comp Metabolic Tcf212 CL 101 mEq/L 05/27/2017 Comp Metabolic Ttu160 CO2 31.0 mEq/L 05/27/2017 Comp Metabolic Edg914 AN ION GAP 10 05/27/2017 Comp Metabolic Oqo739 GL UCOSE 117 mg/dL 05/27/2017 Comp Metabolic Svv477 Cr eat 0.9 mg/dL 05/27/2017 Comp Metabolic Qsb212 eG FR 62 ml/min/1.73m2 05/27 Comp Metabolic Dpe434 BUN 25 mg/dL 05/27/2017 Comp Metabolic Bag488 B/ C Ratio 26.6 Ratio 05/27/2017 Comp Metabolic Atn159 CA LCIUM 9.5 mg/dL 05/27/2017 Comp Metabolic Nkg926 AL K PHOS 73 U/L 05/27/2017 Comp Metabolic Laf718 T(SGOT) 18 U/L 05/27/2017 Comp Metabolic Siw651 AL T(SGPT) 12 U/L 05/27/2017 Comp Metabolic Ftq785 BI LI T 0.5 mg/dL 05/27/2017 Comp Metabolic Qsy665 AL BUMIN 4.1 g/dL 05/27/2017 Comp Metabolic Kii361 TP RO 7.1 g/dL 05/27/2017 Comp Metabolic Mvj465 GL OB 3.0 g/dL 05/27/2017 Comp Metabolic Ncz977 A/ G Ratio 1.3 Ratio 05/27/2017 Comp Metabolic Tfa035 Os mo 281 mOsmo 05/27/2017 Free T4 Aej766 FREE T4 0.91 ng/dL 05/27/2017 Pt Hkl4947 PT 29.2 seconds 04/16/2017 Pt Ovk6407 INR 2.7 04/16/2017 Pt Can3663 Low Intensity - 1.5-2.0 04/16/2017 Pt Yux8505 Mod intensity - 2.0-3.0 04/16/2017 Pt Hrt7288 Hi intensity - 3.0-4.0 04/16/2017 Pt Jrt8871 PT 30.7 seconds 03/31/2017 Pt Mle7708 INR 2.9 03/31/2017 Pt Pyi9261 Low Intensity - 1.5-2.0 03/31/2017 Pt Hgg1364 Mod intensity - 2.0-3.0 03/31/2017 Pt Kzc9864 Hi intensity - 3.0-4.0 03/31/2017 Pt Kxn4210 PT 21.3 seconds 03/26/2017 Pt Isk2104 INR 1.9 03/26/2017 Pt Rdm4504 Low Intensity - 1.5-2.0 03/26/2017 Pt Xva6759 Mod intensity - 2.0-3.0 03/26/2017 Pt Eru6569 Hi intensity - 3.0-4.0 03/26/2017 Pt Wvu2478 PT 19.8 seconds 03/22/2017 Pt Xii5260 INR 1.7 03/22/2017 Pt Rwt6368 Low Intensity - 1.5-2.0 03/22/2017 Pt Qxt9862 Mod intensity - 2.0-3.0 03/22/2017 Pt Hrx8999 Hi intensity - 3.0-4.0 03/22/2017 Pt Uyn4183 PT 15.6 seconds 03/19/2017 Pt Etm6307 INR 1.3 03/19/2017 Pt Bbk4360 Low Intensity - 1.5-2.0 03/19/2017 Pt Cui5505 Mod intensity - 2.0-3.0 03/19/2017 Pt Dxl8350 Hi intensity - 3.0-4.0 03/19/2017 Pt Fys7026 PT 13.7 seconds 03/15/2017 Pt Wlq5678 INR 1.1 03/15/2017 Pt Sul5931 Low Intensity - 1.5-2.0 03/15/2017 Pt Dyx8742 Mod intensity - 2.0-3.0 03/15/2017 Pt Xsm4826 Hi intensity - 3.0-4.0 03/15/2017 Pt Flz7896 PT 25.8 seconds 01/28/2017 Pt Lld8844 INR 2.4 01/28/2017 Pt Jgk0543 Low Intensity - 1.5-2.0 01/28/2017 Pt Abl8664 Mod intensity - 2.0-3.0 01/28/2017 Pt Kyq5604 Hi intensity - 3.0-4.0 01/28/2017 Comp Metabolic Eej960 NA 138 mEq/L 10/23/2016 Comp Metabolic Ggs527 K 3.4 mEq/L 10/23/2016 Comp Metabolic Syw680 CL 100 mEq/L 10/23/2016 Comp Metabolic Wkl523 CO2 30.0 mEq/L 10/23/2016 Comp Metabolic Srw696 AN ION GAP 11 10/23/2016 Comp Metabolic Rgj783 GL UCOSE 139 mg/dL 10/23/2016 Comp Metabolic Xwf650 Cr eat 0.9 mg/dL 10/23/2016 Comp Metabolic Eao310 eG FR 62 ml/min/1.73m2 10/23 Comp Metabolic Kmi159 BUN 22 mg/dL 10/23/2016 Comp Metabolic Akh758 B/ C Ratio 23.4 Ratio 10/23/2016 Comp Metabolic Yvv438 CA LCIUM 8.7 mg/dL 10/23/2016 Comp Metabolic Mlr851 AL K PHOS 66 U/L 10/23/2016 Comp Metabolic Hza316 T(SGOT) 20 U/L 10/23/2016 Comp Metabolic Bqp891 AL T(SGPT) 10 U/L 10/23/2016 Comp Metabolic Cnk008 BI LI T 0.5 mg/dL 10/23/2016 Comp Metabolic Jxp494 AL BUMIN 3.5 g/dL 10/23/2016 Comp Metabolic Rqf086 TP RO 6.3 g/dL 10/23/2016 Comp Metabolic Dzj424 GL OB 2.8 g/dL 10/23/2016 Comp Metabolic Wwl071 A/ G Ratio 1.3 Ratio 10/23/2016 Comp Metabolic Hpk790 Os mo 281 mOsmo 10/23/2016 Pt Zfp8505 PT 26.8 seconds 10/23/2016 Pt Bwk3010 INR 2.7 10/23/2016 Pt Jrk0244 Low Intensity - 1.5-2.0 10/23/2016 Pt Mxf8683 Mod intensity - 2.0-3.0 10/23/2016 Pt Jsn5847 Hi intensity - 3.0-4.0 10/23/2016 %Hba1C Wrq564 % HbA1c 95615-7 6.4 % 10/23/2016 %Hba1C Zbk251 Gluc Ave 137 mg/dL 10/23/2016 Metabolic Ord15 NA 138 mEq/L 09/25/2016 Metabolic [...] Metabolic Ord15 CALCIUM 8.8 mg/dL 09/25/2016 Pt Ggd9006 PT 28.3 seconds 09/25/2016 Pt Lah3071 INR 2.8 09/25/2016 Pt Azi1731 Low Intensity - 1.5-2.0 09/25/2016 Pt Drd0928 Mod intensity - 2.0-3.0 09/25/2016 Pt Frb2744 Hi intensity - 3.0-4.0 09/25/2016 Comp Metabolic Hbs450 NA 138 mEq/L 09/11/2016 Comp Metabolic Ywl648 K 4.4 mEq/L 09/11/2016 Comp Metabolic Xft939 CL 103 mEq/L 09/11/2016 Comp Metabolic Qwh388 CO2 31.0 mEq/L 09/11/2016 Comp Metabolic Eav488 AN ION GAP 8 09/11/2016 Comp Metabolic Hrk597 GL UCOSE 146 mg/dL 09/11/2016 Comp Metabolic Bvd722 Cr eat 1.0 mg/dL 09/11/2016 Comp Metabolic Npe051 eG FR 60 ml/min/1.73m2 09/11 Comp Metabolic Dzk172 BUN 16 mg/dL 09/11/2016 Comp Metabolic Njh149 B/ C Ratio 16.5 Ratio 09/11/2016 Comp Metabolic Rmh382 CA LCIUM 8.7 mg/dL 09/11/2016 Comp Metabolic Ghe242 AL K PHOS 52 U/L 09/11/2016 Comp Metabolic Uln268 T(SGOT) 19 U/L 09/11/2016 Comp Metabolic Mmi697 AL T(SGPT) 11 U/L 09/11/2016 Comp Metabolic Mrs753 BI LI T 0.7 mg/dL 09/11/2016 Comp Metabolic Vaq286 AL BUMIN 3.3 g/dL 09/11/2016 Comp Metabolic Yad735 TP RO 5.8 g/dL 09/11/2016 Comp Metabolic Eaf926 GL OB 2.5 g/dL 09/11/2016 Comp Metabolic Iqy949 A/ G Ratio 1.3 Ratio 09/11/2016 Comp Metabolic Ezr605 Os mo 280 mOsmo 09/11/2016 Pt Chx5819 PT 30.6 seconds 09/11/2016 Pt Vzu3757 INR 3.2 09/11/2016 Pt Wym0633 Low Intensity - 1.5-2.0 09/11/2016 Pt Att9822 Mod intensity - 2.0-3.0 09/11/2016 Pt Npx5910 Hi intensity - 3.0-4.0 09/11/2016 C-Reactive Protein Qnt Crqnt CRP 0.1 mg/dl 08/21/2016 Comp Metabolic Ftj729 NA 139 mEq/L 08/21/2016 Comp Metabolic Ftg679 K 4.1 mEq/L 08/21/2016 Comp Metabolic Xhq899 CL 102 mEq/L 08/21/2016 Comp Metabolic Sbo692 CO2 30.0 mEq/L 08/21/2016 Comp Metabolic Jaz814 AN ION GAP 11 08/21/2016 Comp Metabolic Fei551 GL UCOSE 148 mg/dL 08/21/2016 Comp Metabolic Vbr415 Cr eat 1.0 mg/dL 08/21/2016 Comp Metabolic Rns813 eG FR 55 ml/min/1.73m2 08/21 Comp Metabolic Xlk350 BUN 21 mg/dL 08/21/2016 Comp Metabolic Gqj424 B/ C Ratio 20.2 Ratio 08/21/2016 Comp Metabolic Ptz788 CA LCIUM 9.4 mg/dL 08/21/2016 Comp Metabolic Epl516 AL K PHOS 63 U/L 08/21/2016 Comp Metabolic Cny877 T(SGOT) 23 U/L 08/21/2016 Comp Metabolic Nyl995 AL T(SGPT) 16 U/L 08/21/2016 Comp Metabolic Jlw192 BI LI T 0.6 mg/dL 08/21/2016 Comp Metabolic Tsc291 AL BUMIN 3.9 g/dL 08/21/2016 Comp Metabolic Bam160 TP RO 6.8 g/dL 08/21/2016 Comp Metabolic Qfc539 GL OB 2.9 g/dL 08/21/2016 Comp Metabolic Xgy353 A/ G Ratio 1.4 Ratio 08/21/2016 Comp Metabolic Kny873 Os mo 283 mOsmo 08/21/2016 Pt Qes2444 PT 27.2 seconds 08/21/2016 Pt Lef1814 INR 2.7 08/21/2016 Pt Weo3893 Low Intensity - 1.5-2.0 08/21/2016 Pt Gld2279 Mod intensity - 2.0-3.0 08/21/2016 Pt Ccz9926 Hi intensity - 3.0-4.0 08/21/2016 Magnesium Ord90 Mag 1.9 mg/dL 08/21/2016 Sed Rate Ord21 ESR 16 mm/hr 08/21/2016 Pt Yww0659 PT 25.9 seconds 06/17/2016 Pt Oik2891 INR 2.5 06/17/2016 Pt Dfq0829 Low Intensity - 1.5-2.0 06/17/2016 Pt Ixm2057 Mod intensity - 2.0-3.0 06/17/2016 Pt Qhr0141 Hi intensity - 3.0-4.0 06/17/2016 Tsh Ord6 hTSH II 2.13 uIU/mL 06/08/2016 Free T4 Qmm155 FREE T4 0.79 ng/dL 06/08/2016 %Hba1C Ydn650 % HbA1c 86831-3 6.2 % 06/08/2016 %Hba1C Vmi328 Gluc Ave 131 mg/dL 06/08/2016 Pt Rfs0268 PT 36.1 seconds 06/08/2016 Pt Hey6745 INR 3.9 06/08/2016 Pt Uba3216 Low Intensity - 1.5-2.0 06/08/2016 Pt Pbt1926 Mod intensity - 2.0-3.0 06/08/2016 Pt Ech5551 Hi intensity - 3.0-4.0 06/08/2016 Cbc With Differential Ord2 WBC 5.75 [...] 26.8 pg 06/08/2016 Cbc With Differential Ord2 [place]% 12.0 % 06/08/2016 Cbc With Differential Ord2 Eos% 5.0 % 06/08/2016 Cbc With Differential Ord2 MCHC 33.2 pg 06/08/2016 Cbc With Differential Ord2 PLT 196 K/ul 06/08/2016 Cbc With Differential Ord2 Baso% 1.7 % 06/08/2016 Cbc With Differential Ord2 RDW 16.0 % 06/08/2016 Cbc With Differential Ord2 Neut ABS# 3.27 K/ul 06/08/2016 Cbc With Differential Ord2 Lymph ABS# 1.40 K/ul 06/08/2016 Cbc With Differential Ord2 [place] ABS# 0.7 K/ul 06/08/2016 Cbc With Differential Ord2 Eos ABS# 0.3 K/ul 06/08/2016 Cbc With Differential Ord2 Baso ABS# 0.1 K/ul 06/08/2016 Comp Metabolic Ioh068 NA 138 mEq/L 06/08/2016 Comp Metabolic Njc812 K 3.9 mEq/L 06/08/2016 Comp Metabolic Kep495 CL 105 mEq/L 06/08/2016 Comp Metabolic Eyy667 CO2 27.0 mEq/L 06/08/2016 Comp Metabolic Lar192 AN ION GAP 10 06/08/2016 Comp Metabolic Und423 GL UCOSE 127 mg/dL 06/08/2016 Comp Metabolic Kqs637 Cr eat 1.0 mg/dL 06/08/2016 Comp Metabolic Pad635 eG FR 59 ml/min/1.73m2 06/08 Comp Metabolic Mcp277 BUN 19 mg/dL 06/08/2016 Comp Metabolic Nvk281 B/ C Ratio 19.4 Ratio 06/08/2016 Comp Metabolic Lie820 CA LCIUM 9.2 mg/dL 06/08/2016 Comp Metabolic Xij095 AL K PHOS 77 U/L 06/08/2016 Comp Metabolic Ncb883 T(SGOT) 19 U/L 06/08/2016 Comp Metabolic Sdg574 AL T(SGPT) 13 U/L 06/08/2016 Comp Metabolic Rjj363 BI LI T 0.5 mg/dL 06/08/2016 Comp Metabolic Ise796 AL BUMIN 3.8 g/dL 06/08/2016 Comp Metabolic Fax780 TP RO 6.6 g/dL 06/08/2016 Comp Metabolic Tjf439 GL OB 2.8 g/dL 06/08/2016 Comp Metabolic Rlz899 A/ G Ratio 1.4 Ratio 06/08/2016 Comp Metabolic Vxf539 Os mo 280 mOsmo 06/08/2016 Lipid Ord30 CHOL 149 mg/dL 06/08/2016 Lipid Ord30 HDL 46.0 mg/dl 06/08/2016 Lipid Ord30 TRIG 279 mg/dL 06/08/2016 Lipid Ord30 LDL 47 mg/dL 06/08/2016 Lipid Ord30 C/HDL 3.2 Ratio 06/08/2016 Pt Cpn1959 PT 30.9 seconds 02/12/2016 Pt Tii1837 INR 3.2 02/12/2016 Pt Bar1682 Low Intensity - 1.5-2.0 02/12/2016 Pt Emu1142 Mod intensity - 2.0-3.0 02/12/2016 Pt Ypg8972 Hi intensity - 3.0-4.0 02/12/2016 Tsh Ord6 hTSH II 0.37 uIU/mL 09/27/2015 Pt Yqv1049 PT 26.2 seconds 09/27/2015 Pt Cfs6740 INR 2.5 09/27/2015 Pt Ydz5647 Low Intensity - 1.5-2.0 09/27/2015 Pt Wbf1428 Mod intensity - 2.0-3.0 09/27/2015 Pt Djh3875 Hi intensity - 3.0-4.0 09/27/2015 %Hba1C Wsg552 % HbA1c 62207-1 6.4 % 09/27/2015 %Hba1C Gos534 Gluc Ave 137 mg/dL 09/27/2015 Free T4 Qzz089 FREE T4 1.24 ng/dL 09/27/2015 Pt Vba2770 PT 27.6 seconds 2015 Pt Yrp2676 INR 2.7 2015 Pt Azw5535 Low Intensity - 1.5-2.0 2015 Pt Imd0256 Mod intensity - 2.0-3.0 2015 Pt Awh3755 Hi intensity - 3.0-4.0 2015 %Hba1C Dvf715 % HbA1c 24367-1 6.1 % 06/11/2015 %Hba1C Cpe156 Gluc Ave 128 mg/dL 06/11/2015 Cbc With [...] With Differential Ord2 RDW 15.8 % 06/10/2015 Lipid Ord30 CHOL 161 mg/dL 06/10/2015 Lipid Ord30 HDL 49.0 mg/dl 06/10/2015 Lipid Ord30 TRIG 208 mg/dL 06/10/2015 Lipid Ord30 LDL 70 mg/dL 06/10/2015 Lipid Ord30 C/HDL 3.3 Ratio 06/10/2015 Comp Metabolic Aku433 NA 139 mEq/L 06/10/2015 Comp Metabolic Hxn954 K 4.1 mEq/L 06/10/2015 Comp Metabolic Lds600 CL 105 mEq/L 06/10/2015 Comp Metabolic Ezu323 CO2 27.0 mEq/L 06/10/2015 Comp Metabolic Ivu678 AN ION GAP 11 06/10/2015 Comp Metabolic Fga251 GL UCOSE 127 mg/dL 06/10/2015 Comp Metabolic Iln373 Cr eat 1.0 mg/dL 06/10/2015 Comp Metabolic Hcp387 eG FR 59 ml/min/1.73m2 06/10 Comp Metabolic Xyu001 BUN 21 mg/dL 06/10/2015 Comp Metabolic Fzi193 B/ C Ratio 21.2 Ratio 06/10/2015 Comp Metabolic Rso147 CA LCIUM 9.2 mg/dL 06/10/2015 Comp Metabolic Mkd971 AL K PHOS 87 U/L 06/10/2015 Comp Metabolic Pgz586 T(SGOT) 20 U/L 06/10/2015 Comp Metabolic Men753 AL T(SGPT) 17 U/L 06/10/2015 Comp Metabolic Noz138 BI LI T 0.4 mg/dL 06/10/2015 Comp Metabolic Sgf899 AL BUMIN 4.1 g/dL 06/10/2015 Comp Metabolic Hdf098 TP RO 7.2 g/dL 06/10/2015 Comp Metabolic Qky106 GL OB 3.1 g/dL 06/10/2015 Comp Metabolic Xmv786 A/ G Ratio 1.3 Ratio 06/10/2015 Comp Metabolic Gdo460 Os mo 282 mOsmo 06/10/2015 Tsh Ord6 hTSH II 0.86 uIU/mL 06/10/2015 Pt Zdk1126 PT 25.0 seconds 04/09/2015 Pt Tfl0432 INR 2.4 04/09/2015 Pt Nsj6327 Low Intensity - 1.5-2.0 04/09/2015 Pt Iep7555 Mod intensity - 2.0-3.0 04/09/2015 Pt Gbm0408 Hi intensity - 3.0-4.0 04/09/2015 Cbc With Differential Ord2 WBC 5.6 K/uL [...] With Differential Ord2 RDW 15.2 % 01/22/2015 Free T4 Wrg345 FREE T4 1.05 ng/dL 01/22/2015 B12 Lda325 B12 402.00 pg/ml 01/22/2015 Lipid Ord30 CHOL 166 mg/dL 01/22/2015 Lipid Ord30 HDL 48.0 mg/dl 01/22/2015 Lipid Ord30 TRIG 264 mg/dL 01/22/2015 Lipid Ord30 LDL 65 mg/dL 01/22/2015 Lipid Ord30 C/HDL 3.5 Ratio 01/22/2015 Pt Mhg6037 PT 27.2 seconds 01/22/2015 Pt Qnv2603 INR 2.6 01/22/2015 Pt Joh5140 Low Intensity - 1.5-2.0 01/22/2015 Pt Kws5342 Mod intensity - 2.0-3.0 01/22/2015 Pt Edh3559 Hi intensity - 3.0-4.0 01/22/2015 Tsh Ord6 hTSH II 0.65 uIU/mL 01/22/2015 Comp Metabolic Qrb149 NA 138 mEq/L 01/22/2015 Comp Metabolic Viv490 K 4.1 mEq/L 01/22/2015 Comp Metabolic Kte399 CL 104 mEq/L 01/22/2015 Comp Metabolic Hra634 CO2 29.0 mEq/L 01/22/2015 Comp Metabolic Lsj131 AN ION GAP 9 01/22/2015 Comp Metabolic Blf653 GL UCOSE 106 mg/dL 01/22/2015 Comp Metabolic Krp336 Cr eat 0.9 mg/dL 01/22/2015 Comp Metabolic Okg292 eG FR 63 ml/min/1.73m2 01/22 Comp Metabolic Rjk914 BUN 21 mg/dL 01/22/2015 Comp Metabolic Bdc207 B/ C Ratio 22.3 Ratio 01/22/2015 Comp Metabolic Cqb530 CA LCIUM 9.4 mg/dL 01/22/2015 Comp Metabolic Qoh553 AL K PHOS 83 U/L 01/22/2015 Comp Metabolic Vag624 T(SGOT) 23 U/L 01/22/2015 Comp Metabolic Iuc360 AL T(SGPT) 18 U/L 01/22/2015 Comp Metabolic Zoy856 BI LI T 0.8 mg/dL 01/22/2015 Comp Metabolic Zki923 AL BUMIN 4.2 g/dL 01/22/2015 Comp Metabolic Cde262 TP RO 7.3 g/dL 01/22/2015 Comp Metabolic Qdm569 GL OB 3.1 g/dL 01/22/2015 Comp Metabolic Ijw046 A/ G Ratio 1.4 Ratio 01/22/2015 Comp Metabolic Lon317 Os mo 279 mOsmo 01/22/2015 Review of [...] Date URINALYSIS NONAUTO W /O SCOPE CPT-4: 93457 03/05/2017 Vital Signs Date Vital 04/14/2018 Blood Pressure 1: 116/78 Code: 8480-6 BMI: 41.6 Code: 50241-6 Heart Rate 1: 72 bpm Height: 5'1" SpO2: 98% Weight: 220 lbs 01/18/2018 Blood Pressure 1: 132/74 Code: 8480-6 BMI: 43.5 Code: 65975-9 Heart Rate 1: 70 bpm Height: 5'1" SpO2: 97% Weight: 230 lbs 01/04/2018 Blood Pressure 1: 134/76 Code: 8480-6 BMI: 42.7 Code: 34946-6 Heart Rate 1: 83 bpm Height: 5'1" SpO2: 98% Weight: 226 lbs 09/23/2017 Blood Pressure 1: 124/76 Code: 8480-6 BMI: 42.3 Code: 84214-9 Heart Rate 1: 94 bpm Height: 5'1" SpO2: 96% Weight: 224 lbs 05/27/2017 Blood Pressure 1: 146/78 Code: 8480-6 BMI: 41.4 Code: 84422-2 Heart Rate 1: 85 bpm Height: 5'1" SpO2: 98% Weight: 219 lbs 02/24/2017 Blood Pressure 1: 138/66 Code: 8480-6 BMI: 41.4 Code: 22241-1 Heart Rate 1: 78 bpm Height: 5'1" SpO2: 97% Weight: 219 lbs 11/02/2016 Blood Pressure 1: 144/72 Code: 8480-6 BMI: 46.1 Code: 03444-2 Heart Rate 1: 78 bpm Height: 5'1" SpO2: 98% Weight: 244 lbs 09/30/2016 Blood Pressure 1: 130/76 Code: 8480-6 BMI: 45.0 Code: 17125-4 Heart Rate 1: 86 bpm Height: 5'1" SpO2: 98% Weight: 238 lbs 09/10/2016 Blood Pressure 1: 136/68 Code: 8480-6 BMI: 46.3 Code: 44726-8 Heart Rate 1: 83 bpm Height: 5'1" SpO2: 98% Weight: 245 lbs 08/20/2016 Blood Pressure 1: 142/78 Code: 8480-6 BMI: 45.3 Code: 66158-4 Heart Rate 1: 84 bpm Height: 5'1" SpO2: 99% Weight: 240 lbs 06/08/2016 Blood Pressure 1: 134/76 Code: 8480-6 BMI: 44.2 Code: 55644-7 Heart Rate 1: 86 bpm Height: 5'1" SpO2: 96% Weight: 234 lbs 04/02/2016 Blood Pressure 1: 142/70 Code: 8480-6 BMI: 44.6 Code: 75147-6 Heart Rate 1: 78 bpm Height: 5'1" SpO2: 97% Weight: 236 lbs 01/14/2016 Blood Pressure 1: 146/72 Code: 8480-6 BMI: 44.2 Code: 07696-5 Heart Rate 1: 86 bpm Height: 5'1" SpO2: 96% Weight: 234 lbs 10/02/2015 Blood Pressure 1: 158/76 Code: 8480-6 BMI: 44.2 Code: 85986-0 Heart Rate 1: 67 bpm Height: 5'1" SpO2: 97% Weight: 234 lbs 07/15/2015 Blood Pressure 1: 148/78 Code: 8480-6 Blood Pressure 1: 200/90 Code: 8480-6 BMI: 44.0 Code: 37613-3 Heart Rate 1: 89 bpm Height: 5'1" SpO2: 97% Weight: 233 lbs 06/10/2015 Blood Pressure 1: 140/82 Code: 8480-6 BMI: 44.0 Code: 95593-6 Heart Rate 1: 78 bpm Height: 5'1" [...] wearing crocs and there was a new new zealander on the floor: her foot didn't move [...] Encounters Encounter Performer Loca tion Codes Date ([id number]) [id number] EST. P ATIENT, LEVEL IV Diagnosis: Essential (primary) hypertension[ICD10: I10] Diagnosis: Hypothyroidism, unspecified[ICD10: E03.9] Diagnosis: Impaired fasting glucose[ICD10: R73.01] Diagnosis: retirement (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[ICD10: Z79.01] Edna Almanza MD, [facility] CPT-4: 86910 04/14/2018 ([id number]) 79012 EST. P ATIENT, LEVEL III Diagnosis: Localized edema[ICD10: R60.0] Diagnosis: Gastro-esophageal reflux disease without esophagitis[ICD10: K21.9] Edna Almanza MD, [facility] CPT-4: 78046 01/18/2018 ([id number]) 49924 EST. P ATIENT, LEVEL IV Diagnosis: Gastro-esophageal reflux disease without esophagitis[ICD10: K21.9] Diagnosis: Localized edema[ICD10: R60.0] Diagnosis: Essential (primary) hypertension[ICD10: I10] Diagnosis: Hypothyroidism, unspecified[ICD10: E03.9] Diagnosis: Impaired fasting glucose[ICD10: R73.01] Edna Almanza MD, [facility] CPT-4: 53193 01/04/2018 ([id number]) 89630 EST. 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 CPT-4: 15376 09/23/2017 ([id number]) 96455 EST. 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 PATIENT, LEVEL III Diagnosis: Pain in right hip[ICD10: M25.551] Nata Almanza MD, [facility] CPT-4: 70395 02/24/2017 ([id number]) 99975 EST. P ATIENT, LEVEL IV Diagnosis: Essential (primary) hypertension[ICD10: I10] Diagnosis: Localized edema[ICD10: R60.0] Diagnosis: Pain in right hip[ICD10: M25.551] Sarai Almanza MD, [facility] CPT-4: 74477 11/02/2016 ([id number]) 64525 EST. P ATIENT, LEVEL IV Diagnosis: Essential (primary) hypertension[ICD10: I10] Diagnosis: Localized edema[ICD10: R60.0] Sarai Almanza MD, [facility] CPT-4: 60826 09/30/2016 [id number] EST. PATIENT, LEVEL IV Diagnosis: Localized edema[ICD10: R60.0] Diagnosis: Pain in joints of left hand[ICD10: M25.542] Diagnosis: Pain in joints of right hand[ICD10: M25.541] Nata Almanza MD, [facility] CPT-4: 05294 09/10/2016 78485 EST. PATIENT, LEVEL IV Diagnosis: Localized edema[ICD10: R60.0] Diagnosis: Pain in joints of left hand[ICD10: M25.542] Diagnosis: Pain in joints of right hand[ICD10: M25.541] Diagnosis: Other fatigue[ICD10: R53.83] Nata Almanza MD, [facility] CPT-4: 94391 08/20/2016 35057 EST. 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 PATIENT, LEVEL IV Diagnosis: Other allergic rhinitis[ICD10: J30.89] Diagnosis: Acute laryngopharyngitis[ICD10: J06.0] Nata Almanza MD, [facility] CPT-4: 71431 04/02/2016 37749 EST. PATIENT, LEVEL IV Diagnosis: Left upper quadrant pain[ICD10: R10.12] Nata Almanza MD, [facility] CPT-4: 70312 01/14/2016 83184 EST. PATIENT, LEVEL IV Diagnosis: Pain in left shoulder[ICD10: M25.512] Diagnosis: Body mass index (BMI) 40.0-44.9, adult[ICD10: Z68.41] Nata Almanza MD, [facility] CPT-4: 79596 10/02/2015 14894 EST. PATIENT, LEVEL IV Diagnosis: Pain in left leg[ICD10: M79.605] Diagnosis: Other group home (current) drug therapy[ICD10: Z79.899] Nata Almanza MD, [facility] CPT-4: 00093 07/15/2015 ([id number]) 12386 EST. 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] Edna Almanza MD, [facility] CPT-4: 07829 06/10/2015 ([id number]) OFFICE VISI T, NEW - LEVEL 4 Diagnosis: ESSENTIAL HYPERTENSION[ICD9: 401.9] Diagnosis: HYPOTHYROIDISM[ICD9: 244.9] Diagnosis: ENCNTR LONG-RX USE NEC[ICD9: V58.69] Diagnosis: HYPERLIPIDEMIA[ICD9: 272.4] Diagnosis: Vitamin B12 deficiency[ICD9: 266.2] Diagnosis: Status post gastric surgery[ICD9: V45.89] Diagnosis: Snoring[ICD9: 786.09] [facility] CPT-4: 90609 01/22/2015 Plan of Care Planned Activity Notes [...] Hgb A1C 04/14/2018 Appointment: Edna Douglas WPtel: [address] [place], [place] [phone] (15 min) Moderate 04/14/2018 Patient Education: Patient [...] to further attempt to reduce peripheral edema. LVVH-cskvfogh-tbsicvdw prilosec BID and carafate QID -discussed low spice, low acidic diet 01/18/2018 Appointment: [phone] (15 min) Moderate 01/18/2018 Patient Education: [...] of control. 01/04/2018 Appointment: Edna Douglas WPtel: [address] [place], [place] [phone] (30 min) Complex 01/04/2018 Patient Education: Patient Medication Summary Completed 01/04/2018 Care Plan: SCREENINGMAMMOGRAPHYDIGITAL LOINC : 95360-6 Pending 01/04/2018 Visit Plan: Abdominal hernia - not able to be taken to surgery by local providers and pt has been seen at [facility] and that surgeon felt like Kat would be better served by Dr. Beatncur at [facility] [address] [facility] [address] recommended a [...] home. 09/23/2017 App[facility]ment: [phone] (15 min) Moderate 09/23/2017 Patient Education: [...] to medications. 05/27/2017 Appointment: [facility] [phone] [phone] [place] (30 min) Complex 05/27/2017 Patient [...] [place]. 02/24/2017 Appointment: Nata Hsu WPtel: [phone] [facility] (30 min) Complex 02/24/2017 Patient Education: [...] Chaney. 11/02/2016 App[facility]ment: [phone] [phone] (15 min) Moderate 11/02/2016 Patient Education: [...] Almanza WPtel: [phone] [facility] (15 min) Moderate 09/30/2016 Patient Education: Patient [...] Nata Hsu WPtel: [facility] (30 min) Complex 09/10/2016 Patient [...] Nata Hsu WPtel: [facility] (30 min) Complex 08/20/2016 Patient Education: Patient Medication Summary Completed 08/20/2016 Referral: [facility] Referral Initiated 07/02/2016 Visit Plan: Chronic Anticoagulant [...] 06/08/2016 Care Plan: Referral Order SNOMED-CT : [id number] Pending 06/08/2016 Visit Plan: URI - Pt [...] spray. 04/02/2016 Appointment: Nata Hsu [facility] [phone] [phone] (30 min) Complex 04/02/2016 Patient Education: [...] acute pain 01/14/2016 Appointment: Edna Douglas [facility]Ptel[phone] [place] (30 min) Complex 01/14/2016 Patient Education: Patient Medication Summary Completed 01/14/2016 Patient Education: Obesity Completed 01/14/2016 Care Plan: BMI Above normal followup DAVID F-MGMT EDUC & TRAIN 1 PT Pending 10/24/2015 Care Plan: X-RAY EXAM OF SHOULDER LOINC : 74538-8 Pending 10/24/2015 Visit Plan: Left shoulder pain [...] check. 10/02/2015 Appointment: [facility] [phone] [phone] (15 min) Moderate 10/02/2015 Patient Education: [...] Completed 06/10/2015 Appointment: Sarai Almanza WPtel: [phone] [facility] (15 min) Moderate 04/22/2015 Visit Plan: Hypertension [...] fixation - planning occurring at [facility]. Snoring - Sleep apnea symptoms with [...] medications. 01/22/2015 Appointment: [phone] [place] ([place] New Patient 01/22/2015 Patient Education: Patient Medication Summary Completed 01/22/2015 Patient Education: Hypertension Completed 01/22/2015 Referral: [facility] Referral Initiated Instructions Comment . URI - Pt advised t o [...] - may need injection from dr. Chaney. REFILL CARAFATE DISCUSSED EGD IF SYMPTOMS PERSIST [...] to further attempt to reduce peripheral edema. TDPB-mahwarba-snccobkb prilosec BID and carafate QID -discussed low [...] fixation - planning occurring at [facility]. Snoring - Sleep apnea symptoms with [...]
--- OUTSIDE RECORDS SUMMARY | 2020-01-16 23:31 | XMS REPORT | CCD ---
Author Author Kat Almanza Organization Sarai Almanza MD, [facility] Address [address] [place] [address] Phone Care Team Providers Care Evp Global Product Leadership Name Role Phone PP Unavailable CCM Unavailable Summary Purpose Interface Exchange Insurance Providers Payer name Policy type / Coverage type Covered green party ID Effective Begin Date Effective End Date WPS Medicare Part B Medicare Part B [id number] 2017 Unknown [employer] [place] Medicare Part B [id number] 2017 Unknown Family history Father Diagnosis Age At Onset Hyperlipidemia Unknown Heart Attack Unknown Mother Diagnosis Age At Onset Arthritis Unknown Social History Social History Element Codes Description Effective Dates Marital status Unknown M arried Nathan 09/30/2016 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 Number of children Unknown 3 01/22/[address]: 996707684 Never smoker 01/22/[address]: 881195249 Never drinks alcohol 01/22/2015 Allergies, Adverse Reactions, [...] ICD-9: 790.21 ICD-10: R73.01 Active 05/27/2017 Unknown intermediate (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 ICD-9: V58.61 [...] 780.79 ICD-10: R53.83 Active 08/20/2016 Unknown 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 ICD-9: [...] cose ICD-9: 790.21 ICD-10: R73.01 05/27/2017 Active 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 ICD-9: V58.61 ICD-10: [...] ICD-9: 780.79 ICD-10: R53.83 08/20/2016 Active 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 ICD-9: [...] Date Stop Date Sta tus Fill Instructions Coumadin 4 mg tablet RxNorm: 506461 2 Tablet(s) daily 07/11/2018 02/05/2019 Active Generi c For:COUMADIN 4MG 07/22/2017 8:58:26 AM Coumadin 5 mg tablet RxNorm: 220660 Tablet(s) TAKE 1 TABLET BY MOUTH DIRE CTED 07/08/2018 01/03/2019 Ac tive Generic For:COUMADIN 5MG TAB 03/21/2018 9:13:00 AM Coumadin 1 mg tablet RxNorm: 960364 1 Tablet(s) PO daily 07/08/2018 08/06/2018 Active Coumadin 4 mg tablet RxNorm: 403928 Tablet(s) TAKE 1 TABLET BY MOUTH THREE T IMES PER WEEK (WEDNESDAY, WEDNESDAY AND WEDNESDAY) 07/08/2018 07/10/2018 Inactive Gene andre For:COUMADIN 4MG 07/22/2017 8:58:26 AM venlafaxine ER 75 mg capsule,extended release 24 hr RxNorm: 194747 Capsule(s) TAKE 1 CAPSULE BY MOUTH ONCE DAILY 06/23/2018 06/17/2019 Active Generic For:*EFFEXOR XR 75MG 06/19/2017 12:23:45 PM sodium bicarbonate 6 50 mg tablet RxNorm: 566346 Tablet(s) TAKE 2 TABL ETS BY MOUTH TWICE DAILY 06/23/2018 12/19/2018 Active 12/20/2017 9:10:59 AM Coumadin 1 mg tablet RxNorm: 529919 1 Tablet(s) PO daily 06/17/2018 07/07/2018 Inactive Coumadin 1 mg tablet RxNorm: 707457 1 Tablet(s) PO daily 06/17/2018 06/16/2018 Inactive clonazepam 0.5 mg ta blet RxNorm: 558621 1 Tablet(s) PO BID 06/08/2018 11/04/2018 Active Synthroid 137 mcg ta blet RxNorm: 624914 TAKE 1 TABLET BY MOUT H ONCE DAILY 05/18/2018 11/13/2018 Ac tive Generic For:SYNTHROID 137MCG TAB 2017 8:57:54 AM spironolactone 25 mg tablet RxNorm: 078061 TAKE 1 TABLET BY MOUT H EVERY DAY 05/18/2018 05/12/2019 Ac tive Generic For:*ALDACTONE 25MG 05/18/2018 8:57:50 AM Carafate 1 gram tablet RxNorm: 405379 TAKE ONE TABLET BY MOUTH BEFORE MEALS AN D AT BEDTIME 05/18/2018 07/12/2018 Inactive Generic For:CARAFATE 1GM 1 07/18/2017 8:38:28 AM allopurinol 300 mg t ablet RxNorm: 167993 TAKE 1 TABLET BY MOUT H ONCE DAILY. 04/18/2018 10/14/2018 Ac tive Generic For:ZYLOPRIM 300 MG TABLET 03/22 9:13:47 AM Lasix 20 mg tablet RxNorm: 571271 TAKE ONE TABLET BY MOUTH DAILY 04/18/2018 08/15/2018 Ac tive Generic For:LASIX 20MG 04/18/2018 9:13: 50 AM Carafate 1 gram tablet RxNorm: 970203 TAKE ONE TABLET BY MOUTH BEFORE MEALS AN D AT BEDTIME 04/18/2018 05/17/2018 Inactive Generic For:CARAFATE 1GM 1 9:32:51 AM Coumadin 5 mg tablet RxNorm: 666475 TAKE 1 TABLET BY MOUTH DIRECTED 03/21/2018 07/07/2018 In active Generic For:COUMADIN 5MG TAB 03/21/2018 9:13:00 AM Carafate 1 gram tablet RxNorm: 682982 TAKE ONE TABLET BY MOUTH BEFORE MEALS AN D AT BEDTIME 03/21/2018 04/17/2018 Inactive Generic For:CARAFATE 1GM 1 9:14:24 AM Carafate 1 gram tablet RxNorm: 263941 1 Tablet(s) PO AC & HS 02/17/2018 03/20/2018 Inactive atenolol 100 mg tablet RxNorm: 597053 1 Tablet(s) PO daily 02/04/2018 09/01/2018 Active atenolol 50 mg tablet RxNorm: 178361 1 Tablet(s) PO daily 02/03/2018 02/03/2018 Inactive omeprazole 20 mg cap sean,delayed release RxNorm: 472659 1 Capsule(s) BID 01/21/2018 01/15/2019 Ac tive Generic For:PRILOSEC 20MG 07/22/2017 8:5 8:20 AM Carafate 1 gram tablet RxNorm: 066021 1 Tablet(s) PO AC & HS 01/21/2018 02/16/2018 Inactive Carafate 1 gram tablet RxNorm: 741693 1 Tablet(s) PO AC & HS 01/18/2018 01/20/2018 Inactive Carafate 1 gram tablet RxNorm: 785012 1 Tablet(s) PO AC & HS 01/18/2018 02/27/2018 Inactive Carafate 1 gram tablet RxNorm: 287292 1 Tablet(s) PO AC & HS TAKE ONE TABLET B Y MOUTH TWICE DAILY 01/18/2018 05/17/2018 Inactive Generic For:CARAFATE 1GM 0 12/20/2017 9:10:56 AM omeprazole 20 mg cap sean,delayed release RxNorm: 039073 Capsule(s) TAKE 1 CAP SEAN BY MOUTH EVERY DAY 01/17/2018 01/20/2018 Inactive Generic For:PRILOSEC 20MG 0 07/22/2017 8:58:20 AM omeprazole 20 mg cap sean,delayed release RxNorm: 512852 Capsule(s) TAKE 1 CAP SEAN BY MOUTH EVERY DAY 01/14/2018 01/16/2018 Inactive Generic For:PRILOSEC 20MG 07/22/2017 8:58:20 AM Plavix 75 mg tablet RxNorm: 874696 1 Tablet(s) PO daily 01/07/2018 07/05/2018 Inactive clonazepam 0.5 mg ta blet RxNorm: 018660 1 Tablet(s) PO BID 01/07/2018 06/05/2018 Inactive Carafate 1 gram tablet RxNorm: 361399 1 Tablet(s) PO AC & HS 01/04/2018 01/17/2018 Inactive Lasix 20 mg tablet RxNorm: 362796 TAKE ONE TABLET BY MOUTH DAILY 12/20/2017 04/17/2018 In active Generic For:LASIX 20MG 12/20/2017 9:11: 03 AM sodium bicarbonate 6 50 mg tablet RxNorm: 091384 TAKE 2 TABLETS BY JAVON TH TWICE DAILY 12/20/2017 06/17/2018 In active 12/20/2017 9:10:59 AM Carafate 1 gram tablet RxNorm: 819535 TAKE ONE TABLET BY MOUTH TWICE DAILY 12/20/2017 01/17/2018 In active Generic For:CARAFATE 1GM 12/20/2017 9:1 0:56 AM Synthroid 137 mcg ta blet RxNorm: 636391 TAKE 1 TABLET BY MOUT H ONCE DAILY 11/19/2017 05/17/2018 In active Generic For:SYNTHROID 137MCG TAB 2017 8:58:04 AM Detrol LA 4 mg capsu le,extended release RxNorm: 723068 TAKE 1 CAPSULE BY JAVON TH ONCE DAILY 10/20/2017 04/13/2018 Inactive Generic For:DETROL LA 4MG C AP 10/20/2017 9:01:56 AM allopurinol 300 mg t ablet RxNorm: 990306 TAKE 1 TABLET BY MOUT H ONCE DAILY. 10/20/2017 04/17/2018 In active Generic For:ZYLOPRIM 300 MG TABLET 07/2017 9:01:59 AM Coumadin 5 mg tablet RxNorm: 850376 1 Tablet(s) PO UD 10/01/2017 03/20/2018 Inactive cyclobenzaprine 5 mg tablet RxNorm: 654593 1 Tablet(s) PO TID as needed myscle spasm 09/23/2017 10/12/2017 Inactive Lipitor 40 mg tablet RxNorm: 435953 TAKE 1 TABLET BY MOUTH ONCE DAILY 09/20/2017 09/14/2018 Ac tive Generic For:LIPITOR 40MG 09/20/2017 8:5 6:04 AM atenolol 100 mg tablet RxNorm: 721795 1 Tablet(s) PO daily 08/30/2017 02/03/2018 Inactive atenolol 50 mg tablet RxNorm: 647554 1 Tablet(s) PO daily 08/30/2017 08/30/2017 Inactive Lovenox 30 mg/0.3 mL subcutaneous syringe RxNorm: 593670 0.3 Milliliter(s) SQ Q12H 08/24/2017 09/06/2017 In active Lasix 20 mg tablet RxNorm: 915080 TAKE ONE TABLET BY MOUTH DAILY 08/23/2017 12/19/2017 In active Generic For:LASIX 20MG 08/21/2017 9:04: 27 AM Synthroid 137 mcg ta blet RxNorm: 074225 TAKE 1 TABLET BY MOUT H ONCE DAILY 08/23/2017 11/18/2017 In active Generic For:SYNTHROID 137MCG TAB 2017 9:04:30 AM Lovenox 30 mg/0.3 mL subcutaneous syringe RxNorm: 760281 0.3 Milliliter(s) SQ Q12H 08/10/2017 08/23/2017 In active clonazepam 0.5 mg ta blet RxNorm: 878427 1 Tablet(s) PO BID 08/04/2017 12/30/2017 Inactive Coumadin 4 mg tablet RxNorm: 410051 TAKE 1 TABLET BY MOUTH THREE TIMES PER [place] (WEDNESDAY, WEDNESDAY AND WEDNESDAY) 07/22/2017 02/16/2018 Inactive Generic For:COUMADIN 4MG 07/22/2017 8:58:26 AM omeprazole 20 mg cap sean,delayed release RxNorm: 215974 TAKE 1 CAPSULE BY JAVON TH EVERY DAY 07/22/2017 01/13/2018 Inactive Generic For:PRILOSEC 20MG 07/22/2017 8: 58:20 AM Coumadin 4 mg tablet RxNorm: 644009 TAKE 1 TABLET BY MOUTH THREE TIMES PER [place] (WEDNESDAY, WEDNESDAY AND WEDNESDAY) 07/22/2017 02/16/2018 Inactive Generic For:COUMADIN 4MG 07/22/2017 8:58:26 AM sodium bicarbonate 6 50 mg tablet RxNorm: 100284 TAKE 2 TABLETS BY JAVON TH TWICE DAILY 06/22/2017 12/18/2017 In active 06/19/2017 12:23:30 PM venlafaxine ER 75 mg capsule,extended release 24 hr RxNorm: 965106 TAKE 1 CAPSULE BY MOUTH ONCE DAILY 06/22/2017 06/16/2018 Inactive Generic For:*EFFEXOR XR 75M G 06/19/2017 12:23:45 PM Coumadin 5 mg tablet RxNorm: 503314 1 Tablet(s) PO UD 06/01/2017 09/30/2017 Inactive Keflex 500 mg capsule RxNorm: 161637 1 Capsule(s) PO TID 05/27/2017 06/02/2017 Inactive Synthroid 137 mcg ta blet RxNorm: 638962 TAKE 1 TABLET BY MOUT H ONCE DAILY 05/24/2017 08/21/2017 In active Generic For:SYNTHROID 137MCG TAB 2016 8:55:59 AM Carafate 1 gram tablet RxNorm: 857299 TAKE ONE TABLET BY MOUTH TWICE DAILY 05/24/2017 12/19/2017 In active Generic For:CARAFATE 1GM 05/24/2017 8:5 5:54 AM spironolactone 25 mg tablet RxNorm: 328846 1 Tablet(s) PO daily 05/24/2017 05/17/2018 Inactive Detrol LA 4 mg capsu le,extended release RxNorm: 323633 1 Capsule(s) PO daily TAKE 1 CAPSULE BY MOUTH ONCE DAILY 05/10/2017 10/19/2017 Inactive Generic For:DETROL LA 4MG CAP 02/19/2017 2:36:00 PM Lasix 20 mg tablet RxNorm: 352569 TAKE ONE TABLET BY MOUTH DAILY 04/23/2017 08/20/2017 In active Generic For:LASIX 20MG 04/23/2017 9:04: 01 AM Coumadin 4 mg tablet RxNorm: 996425 TAKE 1 TABLET BY MOUTH THREE TIMES PER [place] (WEDNESDAY, WEDNESDAY AND WEDNESDAY) 04/23/2017 07/21/2017 Inactive Generic For:COUMADIN 4MG 04/23/2017 9:04:05 AM allopurinol 300 mg t ablet RxNorm: 885547 TAKE 1 TABLET BY MOUT H ONCE DAILY. 04/23/2017 10/19/2017 In active Generic For:ZYLOPRIM 300 MG TABLET 08/2016 9:03:57 AM potassium chloride 2 0 mEq/15 mL oral liquid RxNorm: 039007 Milliliter(s) 30 Milliliter(s) (40mEq) PO daily 03/24/2017 07/21/2017 Inactive Lovenox 30 mg/0.3 mL subcutaneous syringe RxNorm: 068646 0.3 Milliliter(s) SQ Q12H 03/22/2017 03/26/2017 In active Lovenox 30 mg/0.3 mL subcutaneous syringe RxNorm: 007416 0.3 Milliliter(s) SQ Q12H 03/19/2017 03/20/2017 In active Lovenox 30 mg/0.3 mL subcutaneous syringe RxNorm: 778154 0.3 Milliliter(s) SQ Q12H 03/16/2017 03/18/2017 In active clonazepam 0.5 mg ta blet RxNorm: 916355 1 Tablet(s) PO BID 03/02/2017 07/28/2017 Inactive Lovenox 30 mg/0.3 mL subcutaneous syringe RxNorm: 754206 1 injection SQ BID do NOT take the night time dose the day before surgery, or the morning dose the day of surgery 03/01/2017 03/07/2017 Inactive Lovenox 30 mg/0.3 mL subcutaneous syringe RxNorm: 950504 1 injection SQ BID 03/01/2017 02/28/2017 In active Detrol LA 4 mg capsu le,extended release RxNorm: 345363 TAKE 1 CAPSULE BY JAVON TH ONCE DAILY 02/19/2017 05/09/2017 Inactive Generic For:DETROL LA 4MG C AP 02/19/2017 2:36:00 PM hydrocodone 5 mg-humberto taminophen 325 mg tablet RxNorm: 493982 1-2 Tablet(s) PO Q6 P RN 02/04/2017 No Stop Date Active Zetia 10 mg tablet RxNorm: 531543 TAKE 1 TABLET BY MOUTH DAILY 01/25/2017 04/13/2018 Inactive 01/23/2017 9:03:48 AM omeprazole 20 mg cap sean,delayed release RxNorm: 914269 TAKE 1 CAPSULE BY JAVON TH EVERY DAY 01/25/2017 07/21/2017 Inactive Generic For:PRILOSEC 20MG 01/23/2017 9: 03:45 AM Coumadin 4 mg tablet RxNorm: 985873 TAKE 1 TABLET BY MOUTH THREE TIMES PER [place] (WEDNESDAY, WEDNESDAY AND WEDNESDAY) 01/25/2017 04/22/2017 Inactive Generic For:COUMADIN 4MG 01/23/2017 9:03:51 AM sodium bicarbonate 6 50 mg tablet RxNorm: 332853 TAKE 2 TABLETS BY JAVON TH TWICE DAILY 12/24/2016 06/21/2017 In active 12/24/2016 9:09:27 AM Lasix 20 mg tablet RxNorm: 227434 1 Tablet(s) PO daily 12/24/2016 04/22/2017 Inactive Synthroid 137 mcg ta blet RxNorm: 710192 TAKE 1 TABLET BY MOUT H ONCE DAILY 11/24/2016 05/22/2017 In active Generic For:SYNTHROID 137MCG TAB 2016 9:04:37 AM Coumadin 4 mg tablet RxNorm: 040029 TAKE 1 TABLET BY MOUTH THREE TIMES PER [place] (WEDNESDAY, WEDNESDAY AND WEDNESDAY) 11/24/2016 01/22/2017 Inactive Generic For:COUMADIN 4MG 11/24/2016 9:04:41 AM hydrocodone 5 mg-humberto taminophen 325 mg tablet RxNorm: 734475 1-2 Tablet(s) PO Q6 P RN 11/17/2016 02/03/2017 In active Carafate 1 gram tablet RxNorm: 340111 TAKE ONE TABLET BY MOUTH TWICE DAILY 10/27/2016 05/23/2017 In active Generic For:CARAFATE 1GM 10/26/2016 8:3 9:42 AM allopurinol 300 mg t ablet RxNorm: 239996 Tablet(s) TAKE 1 TABL ET BY MOUTH ONCE DAILY. 10/26/2016 04/22/2017 Inactive Lipitor 40 mg tablet RxNorm: 033748 1 Tablet(s) PO daily 09/25/2016 09/19/2017 Inactive Coumadin 4 mg tablet RxNorm: 342276 TAKE 1 TABLET BY MOUTH THREE TIMES PER [place] (WEDNESDAY, WEDNESDAY AND WEDNESDAY) 09/25/2016 11/23/2016 Inactive Generic For:COUMADIN 4MG 09/25/2016 8:55:58 AM Zetia 10 mg tablet RxNorm: 880675 1 Tablet(s) PO daily 09/25/2016 01/22/2017 Inactive gave 1 month of samples clonazepam 0.5 mg ta blet RxNorm: 830779 1 Tablet(s) PO BID 09/21/2016 02/16/2017 Inactive Lasix 20 mg tablet RxNorm: 485506 1 Tablet(s) PO daily 09/15/2016 12/23/2016 Inactive potassium chloride 2 0 mEq/15 mL oral liquid RxNorm: 143841 Milliliter(s) 30 Milliliter(s) (40mEq) PO daily 09/15/2016 01/12/2017 Inactive Lasix 20 mg tablet RxNorm: 036812 2 Tablet(s) PO daily 09/10/2016 09/12/2016 Inactive Lasix 20 mg tablet RxNorm: 574872 1 Tablet(s) PO daily 08/28/2016 08/30/2016 Inactive Lasix 20 mg tablet RxNorm: 702625 1 Tablet(s) PO daily 08/20/2016 08/22/2016 Inactive Detrol LA 4 mg capsu le,extended release RxNorm: 731692 TAKE 1 CAPSULE BY JAVON TH ONCE DAILY 07/27/2016 02/18/2017 Inactive Generic For:DETROL LA 4MG C AP 07/27/2016 9:08:27 AM Coumadin 4 mg tablet RxNorm: 605721 1 Tablet(s) PO 3 x week wed and sun 07/27/2016 09/24/2016 In active omeprazole 20 mg cap sean,delayed release RxNorm: 004674 Capsule(s) PO TAKE 1 CAPSULE BY MOUTH ONCE DAILY 07/27/2016 01/22/2017 Inactive venlafaxine ER 75 mg capsule,extended release 24 hr RxNorm: 744953 1 Capsule(s) PO daily 06/29/2016 06/21/2017 Inactive sodium bicarbonate 6 50 mg tablet RxNorm: 796039 TAKE 2 TABLETS BY JAVON TH TWICE DAILY 06/29/2016 12/23/2016 In active 06/27/2016 9:05:39 AM Coumadin 4 mg tablet RxNorm: 471903 1 Tablet(s) PO 3 x week e and sun 06/09/2016 06/08/2016 In active Coumadin 4 mg tablet RxNorm: 140051 1 Tablet(s) PO 3 x week e and sun 06/09/2016 07/26/2016 In active Zetia 10 mg tablet RxNorm: 406403 1 Tablet(s) PO daily 06/09/2016 06/08/2016 Inactive gave 1 month of samples Zetia 10 mg tablet RxNorm: 074905 1 Tablet(s) PO daily 06/09/2016 09/24/2016 Inactive gave 1 month of samples Effexor 75 mg tablet RxNorm: 924564 1 Tablet(s) PO daily 06/08/2016 06/28/2016 Inactive spironolactone 25 mg tablet RxNorm: 076840 1 Tablet(s) PO daily 06/08/2016 05/23/2017 Inactive Synthroid 137 mcg ta blet RxNorm: 798085 1 Tablet(s) PO daily 05/07/2016 11/02/2016 Inactive allopurinol 300 mg t ablet RxNorm: 195295 Tablet(s) TAKE 1 TABL ET BY MOUTH ONCE DAILY. 04/28/2016 10/24/2016 Inactive clonazepam 0.5 mg ta blet RxNorm: 242922 1 Tablet(s) PO BID 04/20/2016 09/15/2016 Inactive Flonase Allergy Reli ef 50 mcg/actuation nasal spray,suspension RxNorm: 7505006 1 Wells NASAL BID 04/02/2016 No Stop Date Active Zithromax Z-Thomas 250 mg tablet RxNorm: 926912 Tablet(s) PO 04/02/2016 08/27/2016 Inactive cetirizine 10 mg tablet RxNorm: 1096020 1 Tablet(s) PO daily 04/02/2016 05/01/2016 Inactive Carafate 1 gram tablet RxNorm: 779820 Tablet(s) TAKE 1 TABLET TWICE A DAY FOR 30 DAYS 03/30/2016 10/25/2016 Inactive Generic For:CARAFATE 1GM 02/08/2015 12:3 6:39 PM Plavix 75 mg tablet RxNorm: 311348 1 Tablet(s) PO daily 03/11/2016 09/06/2016 Inactive sodium bicarbonate 6 50 mg tablet RxNorm: 800456 Tablet(s) 2 Tablet(s) PO BID 02/28/2016 06/26/2016 In active omeprazole 20 mg cap sean,delayed release RxNorm: 131322 Capsule(s) PO TAKE 1 CAPSULE BY MOUTH ONCE DAILY 01/31/2016 07/26/2016 Inactive Fish Oil 1,000 mg ca psule RxNorm: 1 Capsule(s) PO BID 01/14/2016 No Stop Date Active Synthroid 137 mcg ta blet RxNorm: 367739 1 Tablet(s) PO daily 01/14/2016 05/06/2016 Inactive Detrol LA 4 mg capsu le,extended release RxNorm: 676323 TAKE 1 CAPSULE BY JAVON TH ONCE DAILY 12/30/2015 07/26/2016 Inactive Generic For:DETROL LA 4MG C AP 12/30/2015 9:11:01 AM potassium chloride 2 0 mEq/15 mL oral liquid RxNorm: 707918 Milliliter(s) 30 Milliliter(s) (40mEq) PO daily 12/02/2015 03/30/2016 Inactive sodium bicarbonate 6 50 mg tablet RxNorm: 235836 Tablet(s) 2 Tablet(s) PO BID 10/31/2015 02/27/2016 In active Lipitor 40 mg tablet RxNorm: 356731 1 Tablet(s) PO daily 10/09/2015 09/24/2016 Inactive sodium bicarbonate 6 50 mg tablet RxNorm: 161130 2 Tablet(s) PO BID 10/01/2015 10/30/2015 Inactive allopurinol 300 mg t ablet RxNorm: 314325 TAKE 1 TABLET BY MOUT H ONCE DAILY. 10/01/2015 04/27/2016 In active Generic For:ZYLOPRIM 300 MG TABLET 09/19 9:21:15 AM clonazepam 0.5 mg ta blet RxNorm: 435910 1 Tablet(s) PO BID 09/30/2015 04/19/2016 Inactive Coumadin 5 mg tablet RxNorm: 241944 1 Tablet(s) PO daily 09/27/2015 05/31/2017 Inactive Generic For:COUMADIN 5MG TAB N O T I C E PRESCRIPTION PREVIOUSLY AUTHORIZED BY DOCTOR:BOBBY ZULETA Synthroid 125 mcg ta blet RxNorm: 348940 1 Tablet(s) PO daily 09/27/2015 09/26/2015 Inactive Synthroid 125 mcg ta blet RxNorm: 942695 1 Tablet(s) PO daily 09/27/2015 01/13/2016 Inactive Carafate 1 gram tablet RxNorm: 786579 Tablet(s) TAKE 1 TABLET TWICE A DAY FOR 30 DAYS 09/02/2015 03/29/2016 Inactive Generic For:CARAFATE 1GM 02/08/2015 12:3 6:39 PM sodium bicarbonate 6 50 mg tablet RxNorm: 617086 2 Tablet(s) PO BID 09/02/2015 09/30/2015 Inactive Prilosec 20 mg capsu le,delayed release RxNorm: 604752 TAKE 1 CAPSULE BY JAVON TH ONCE DAILY 08/02/2015 01/28/2016 Inactive Generic For:PRILOSEC 20MG 08/02/2015 10:03:09 AM N O T I C E PRESCRIPTION PREVIOUSLY AUTHORIZED BY DOCTOR:BOBBY ZULETA Zyrtec 10 mg capsule RxNorm: 7789129 1 Capsule(s) PO daily 07/15/2015 08/13/2015 Inactive Keflex 500 mg capsule RxNorm: 932773 1 Capsule(s) PO TID 07/15/2015 07/21/2015 Inactive cetirizine 10 mg cap sean RxNorm: 0951061 1 Capsule(s) PO daily 07/15/2015 08/13/2015 Inactive hydrocodone 5 mg-humberto taminophen 325 mg tablet RxNorm: 609640 1-2 Tablet(s) PO Q6 P RN 06/10/2015 11/16/2016 In active sodium bicarbonate 6 50 mg tablet RxNorm: 521707 2 Tablet(s) PO BID 06/03/2015 08/31/2015 Inactive Detrol LA 4 mg capsu le,extended release RxNorm: 319304 TAKE 1 CAPSULE BY JAVON TH ONCE DAILY 06/03/2015 12/29/2015 Inactive Generic For:DETROL LA 4MG C AP N O T I C E PRESCRIPTION PREVIOUSLY AUTHORIZED BY DOCTOR:BOBBY ZULETA atenolol 50 mg tablet RxNorm: 313419 1 Tablet(s) PO daily TAKE 1 TABLET BY MO UTH DAILY 05/07/2015 08/23/2017 Inactive Generic For:TENORMIN 50MG 05/04/2015 9:07:22 AM spironolactone 25 mg tablet RxNorm: 237524 1 Tablet(s) PO daily 05/06/2015 06/07/2016 Inactive venlafaxine ER 75 mg capsule,extended release 24 hr RxNorm: 981964 1 Capsule(s) PO daily 05/04/2015 06/28/2016 Inactive atenolol 50 mg tablet RxNorm: 593135 TAKE 1 TABLET BY MOUTH DAILY 05/04/2015 05/06/2015 Inactive Generic For:TENORMIN 50MG 05/04/2015 9: 07:22 AM Synthroid 150 mcg ta blet RxNorm: 250814 TAKE 1 TABLET BY MOUT H ONCE DAILY. 04/05/2015 09/26/2015 In active Generic For:SYNTHROID 150MCG TAB 2014 4:45:40 PM N O T I C E PRESCRIPTION PREVIOUSLY AUTHORIZED BY DOCTOR:BOBBY ZULETA Effexor 75 mg tablet RxNorm: 523450 1 Tablet(s) PO daily 04/05/2015 07/03/2015 Inactive Coumadin 5 mg tablet RxNorm: 559051 TAKE 1 AND 1/2 TABLETS BY MOUTH ONCE MYRANDA LY 04/04/2015 09/26/2015 In active Generic For:COUMADIN 5MG TAB N O T I C E PRESCRIPTION PREVIOUSLY AUTHORIZED BY DOCTOR:BOBBY ZULETA clonazepam 0.5 mg ta blet RxNorm: 177517 1 Tablet(s) PO BID 03/13/2015 11/05/2015 Inactive sodium bicarbonate 6 50 mg tablet RxNorm: 218882 2 Tablet(s) PO BID 03/08/2015 06/02/2015 Inactive allopurinol 300 mg t ablet RxNorm: 515017 TAKE 1 TABLET BY MOUT H ONCE DAILY. 03/05/2015 09/30/2015 In active N O T I C E PRESCRIPTION PREVIOUSLY A UTHORIZED BY DOCTOR:BOBBY ZULETA Plavix 75 mg tablet RxNorm: 558382 1 Tablet(s) PO daily 02/12/2015 09/09/2015 Inactive clonazepam 0.5 mg ta blet RxNorm: 567850 1 Tablet(s) PO BID 02/11/2015 03/11/2015 Inactive Carafate 1 gram tablet RxNorm: 107863 TAKE 1 TABLET TWICE A DAY FOR 30 DAYS 02/08/2015 02/07/2015 In active Generic For:CARAFATE 1GM 02/08/2015 12:3 6:39 PM Carafate 1 gram tablet RxNorm: 743064 Tablet(s) TAKE 1 TABLET TWICE A DAY FOR 30 DAYS 02/08/2015 09/01/2015 Inactive Generic For:CARAFATE 1GM 02/08/2015 12:3 6:39 PM potassium chloride 2 0 mEq/15 mL oral liquid RxNorm: 083463 30 Milliliter(s) (40m Eq) PO daily 02/05/2015 12/01/2015 Inactive atenolol 50 mg tablet RxNorm: 967310 1 Tablet(s) PO daily 02/04/2015 05/03/2015 Inactive [SAVINGS FOR NON-COVERED DRUGS -- BIN:00 3585, PCN: [id number], Group: XXXXX, ID# XXXXXXX, Questions: . THIS IS NOT INSURANCE.] potassium chloride 2 0 mEq/15 mL oral liquid RxNorm: 039997 30 Milliliter(s) (40m Eq) PO daily 01/08/2015 02/04/2015 Inactive potassium chloride 2 0 mEq/15 mL oral liquid RxNorm: 283343 30 Milliliter(s) (40m Eq) PO daily 12/07/2014 01/07/2015 Inactive atenolol 50 mg tablet RxNorm: 264173 1 Tablet(s) PO daily 11/09/2014 11/08/2014 Inactive atenolol 50 mg tablet RxNorm: 742085 1 Tablet(s) PO daily 11/09/2014 02/03/2015 Inactive [SAVINGS FOR NON-COVERED DRUGS -- BIN:00 4795, PCN: ASPROD1, Group: XXXXX, ID# XXXXXXX, Questions: . THIS IS NOT INSURANCE.] Voltaren 1 % topical gel RxNorm: 042133 TOP No St art Date Active verapamil ER (HS) 24 0 mg tablet,extended release 24 hr RxNorm: 482096 1 Tablet(s) PO daily No Start Date Active aspirin 81 mg tablet RxNorm: 368990 1 Tablet(s) PO daily No Start Date Active Zofran 4 mg tablet RxNorm: 417923 1 Tablet(s) PO PRN No Start Date Active B12 1000 mcg RxNorm: 1 Tablet(s) PO daily No Start Date Active magnesium oxide 400 mg capsule RxNorm: 479043 2 Capsule(s) PO BID No Start Date Active Synthroid 150 mcg ta blet RxNorm: 088319 1 Tablet(s) PO daily No Start Date 04/04/2015 Inactive Coumadin 5 mg tablet RxNorm: 967202 1 Tablet(s) PO daily No Start Date 04/03/2015 Inactive cranberry 1,000 mg c apsule RxNorm: 788556 1 Capsule(s) PO daily No Start Date 04/13/2018 Inactive allopurinol 300 mg t ablet RxNorm: 903857 1 Tablet(s) PO daily No Start Date 03/04/2015 Inactive Prilosec 20 mg capsu le,delayed release RxNorm: 107423 1 Capsule(s) PO PRN No Start Date 08/01/2015 Inactive potassium chloride 2 0 mEq/15 mL oral liquid RxNorm: 990138 30 Milliliter(s) (40m Eq) PO daily No Start Date 12/06/2014 Inactive atenolol 50 mg tablet RxNorm: 665985 1 Tablet(s) PO daily No Start Date 08/29/2017 Inactive Lipitor 40 mg tablet RxNorm: 297598 1 Tablet(s) PO daily No Start Date 09/19/2017 Inactive Effexor 75 mg tablet RxNorm: 441848 1 Tablet(s) PO daily No Start Date 04/04/2015 Inactive Carafate 1 gram tablet RxNorm: 850028 1 Tablet(s) PO BID No Start Date 02/07/2015 Inactive clonazepam 0.5 mg ta blet RxNorm: 878567 1 Tablet(s) PO BID No Start Date 02/10/2015 Inactive Plavix 75 mg tablet RxNorm: 949894 1 Tablet(s) PO daily No Start Date 02/11/2015 Inactive sodium bicarbonate 6 50 mg tablet RxNorm: 145854 2 Tablet(s) PO BID No Start Date 09/01/2015 Inactive Lovenox 30 mg/0.3 mL subcutaneous syringe RxNorm: 481639 0.3 Milliliter(s) SQ Q12H No Start Date 03/15/2017 Inactive Fish Oil 1,000 mg ca psule RxNorm: 1 Capsule(s) PO daily No Start Date 01/13/2016 Inactive Detrol LA 4 mg capsu le,extended release RxNorm: 525998 1 Capsule(s) PO daily No Start Date 06/02/2015 Inactive Medication Administered No Medication Administered data Immunizations Vaccine Codes Date Status SHINGARIX CVX: 121 03/23 completed Assessments Condition Codes Effectiv e Dates Hypothyroidism, unspecified ICD-10: E03.9 ICD-9: 244.9 04/14/2018 Essential (primary) hypertension ICD -10: I10 ICD-9: 401.9 04/14/2018 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 ICD-10: Z79.01 ICD-9: [...] Code Item Item Code Result Date Pt [id number] PT 30.2 seconds 07/25/2018 Pt [id number] INR 2.9 07/25/2018 Pt [id number] Low Intensity - 1.5-2.0 07/25/2018 Pt [id number] Mod intensity - 2.0-3.0 07/25/2018 Pt Myn2780 Hi intensity - 3.0-4.0 07/25/2018 Pt Lga4322 PT 25.2 seconds 07/19/2018 Pt Xfu9987 INR 2.3 07/19/2018 Pt Jos9968 Low Intensity - 1.5-2.0 07/19/2018 Pt Cor7659 Mod intensity - 2.0-3.0 07/19/2018 Pt Yiq5220 Hi intensity - 3.0-4.0 07/19/2018 Pt Wzk2810 PT 17.4 seconds 07/15/2018 Pt Syl8263 INR 1.5 07/15/2018 Pt Vse3658 Low Intensity - 1.5-2.0 07/15/2018 Pt Bda3813 Mod intensity - 2.0-3.0 07/15/2018 Pt Knd0904 Hi intensity - 3.0-4.0 07/15/2018 Pt And6685 PT 17.8 seconds 07/08/2018 Pt Ufc9238 INR 1.5 07/08/2018 Pt Wqc9543 Low Intensity - 1.5-2.0 07/08/2018 Pt Tzu5230 Mod intensity - 2.0-3.0 07/08/2018 Pt Qct7894 Hi intensity - 3.0-4.0 07/08/2018 Pt Kto8801 PT 19.2 seconds 07/01/2018 Pt Hak0968 INR 1.7 07/01/2018 Pt Smy7771 Low Intensity - 1.5-2.0 07/01/2018 Pt Dvu4883 Mod intensity - 2.0-3.0 07/01/2018 Pt Zgo5783 Hi intensity - 3.0-4.0 07/01/2018 Pt Hzv3230 PT 17.4 seconds 06/23/2018 Pt Jps7407 INR 1.5 06/23/2018 Pt Lhi5346 Low Intensity - 1.5-2.0 06/23/2018 Pt Uqi1933 Mod intensity - 2.0-3.0 06/23/2018 Pt Thr0870 Hi intensity - 3.0-4.0 06/23/2018 Pt Ocn1749 PT 18.4 seconds 06/17/2018 Pt Uhe5921 INR 1.6 06/17/2018 Pt Frw7854 Low Intensity - 1.5-2.0 06/17/2018 Pt Zgj8383 Mod intensity - 2.0-3.0 06/17/2018 Pt Mxs3116 Hi intensity - 3.0-4.0 06/17/2018 Sed Rate [...] 30.4 pg 06/08/2018 Cbc With Differential Ord2 [place]% 9.4 % 06/08/2018 Cbc With Differential Ord2 [...] 1.20 K/ul 06/08/2018 Cbc With Differential Ord2 [place] ABS# 0.5 K/ul 06/08/2018 Cbc With Differential Ord2 Eos ABS# 0.1 K/ul 06/08/2018 Cbc With Differential Ord2 Baso ABS# 0.1 K/ul 06/08/2018 C-Reactive Protein Qnt Crqnt CRP 0.1 mg/dl 06/08/2018 Pt Ydd7055 PT 17.6 seconds 06/08/2018 Pt Ilb5007 INR 1.5 06/08/2018 Pt Zpd1753 Low Intensity - 1.5-2.0 06/08/2018 Pt Gls1109 Mod intensity - 2.0-3.0 06/08/2018 Pt Iki4462 Hi intensity - 3.0-4.0 06/08/2018 Pt Qno3584 PT 16.8 seconds 05/10/2018 Pt Cre6062 INR 1.4 05/10/2018 Pt Enc8302 Low Intensity - 1.5-2.0 05/10/2018 Pt Pum6572 Mod intensity - 2.0-3.0 05/10/2018 Pt Wns8429 Hi intensity - 3.0-4.0 05/10/2018 Pt Nqe5574 PT 16.7 seconds 05/04/2018 Pt Egj7224 INR 1.4 05/04/2018 Pt Nol4476 Low Intensity - 1.5-2.0 05/04/2018 Pt Hhb6004 Mod intensity - 2.0-3.0 05/04/2018 Pt Zic4940 Hi intensity - 3.0-4.0 05/04/2018 Free T4 Nbv403 FREE T4 1.09 ng/dL 04/14/2018 Tsh Ord6 TSH (3rd IS) 2.36 uIU/mL 04/14/2018 Pt Aln8974 PT 20.3 seconds 04/14/2018 Pt Wap1799 INR 1.8 04/14/2018 Pt Btw9675 Low Intensity - 1.5-2.0 04/14/2018 Pt Mle3022 Mod intensity - 2.0-3.0 04/14/2018 Pt Bjc9059 Hi intensity - 3.0-4.0 04/14/2018 Lipid Ord30 CHOL 149 mg/dL 04/14/2018 Lipid Ord30 HDL 49.0 mg/dl 04/14/2018 Lipid Ord30 TRIG 161 mg/dL 04/14/2018 Lipid Ord30 LDL 68 mg/dL 04/14/2018 Lipid Ord30 C/HDL 3.0 Ratio 04/14/2018 %Hba1C Xqf193 % HbA1c 62276-2 5.9 % 04/14/2018 %Hba1C Awk543 Gluc Ave 123 mg/dL 04/14/2018 Comp Metabolic Trx316 NA 140 mEq/L 04/14/2018 Comp Metabolic Tig771 K 4.1 mEq/L 04/14/2018 Comp Metabolic Dha744 CL 105 mEq/L 04/14/2018 Comp Metabolic Jyf974 CO2 28.0 mEq/L 04/14/2018 Comp Metabolic Pdh244 AN ION GAP 11 04/14/2018 Comp Metabolic Kbd145 GL UCOSE 112 mg/dL 04/14/2018 Comp Metabolic Xhh933 Cr eat 1.0 mg/dL 04/14/2018 Comp Metabolic Mdw863 eG FR 58 ml/min/1.73m2 04/14 Comp Metabolic Pps024 BUN 20 mg/dL 04/14/2018 Comp Metabolic Rel096 B/ C Ratio 20.2 Ratio 04/14/2018 Comp Metabolic Sss413 CA LCIUM 10.0 mg/dL 04/14/2018 Comp Metabolic Uig612 AL K PHOS 51 U/L 04/14/2018 Comp Metabolic Cgr223 T(SGOT) 24 U/L 04/14/2018 Comp Metabolic Opn307 AL T(SGPT) 21 U/L 04/14/2018 Comp Metabolic Wdf877 BI LI T 0.8 mg/dL 04/14/2018 Comp Metabolic Dkd747 AL BUMIN 4.2 g/dL 04/14/2018 Comp Metabolic Gas964 TP RO 7.1 g/dL 04/14/2018 Comp Metabolic Lqp259 GL OB 2.9 g/dL 04/14/2018 Comp Metabolic Vnz188 A/ G Ratio 1.5 Ratio 04/14/2018 Comp Metabolic Exg577 Os mo 283 mOsmo 04/14/2018 Cbc With [...] 30.7 pg 04/14/2018 Cbc With Differential Ord2 [place]% 10.6 % 04/14/2018 Cbc With Differential Ord2 [...] 1.18 K/ul 04/14/2018 Cbc With Differential Ord2 [place] ABS# 0.5 K/ul 04/14/2018 Cbc With Differential Ord2 Eos ABS# 0.2 K/ul 04/14/2018 Cbc With Differential Ord2 Baso ABS# 0.1 K/ul 04/14/2018 Pt Hbq0603 PT 29.3 seconds 02/11/2018 Pt Yti6866 INR 2.8 02/11/2018 Pt Ntz7283 Low Intensity - 1.5-2.0 02/11/2018 Pt Jrh1618 Mod intensity - 2.0-3.0 02/11/2018 Pt Afb1590 Hi intensity - 3.0-4.0 02/11/2018 Comp Metabolic Jjw447 NA 141 mEq/L 01/05/2018 Comp Metabolic Icq916 K 3.7 mEq/L 01/05/2018 Comp Metabolic Aej435 CL 102 mEq/L 01/05/2018 Comp Metabolic Ubr238 CO2 29.0 mEq/L 01/05/2018 Comp Metabolic Vse613 AN ION GAP 14 01/05/2018 Comp Metabolic Fdy738 GL UCOSE 136 mg/dL 01/05/2018 Comp Metabolic Tgf977 Cr eat 1.0 mg/dL 01/05/2018 Comp Metabolic Ney307 eG FR 61 ml/min/1.73m2 01/05 Comp Metabolic Bdf600 BUN 22 mg/dL 01/05/2018 Comp Metabolic Bat927 B/ C Ratio 22.9 Ratio 01/05/2018 Comp Metabolic Mka760 CA LCIUM 9.7 mg/dL 01/05/2018 Comp Metabolic Wui440 AL K PHOS 57 U/L 01/05/2018 Comp Metabolic Sxn281 T(SGOT) 21 U/L 01/05/2018 Comp Metabolic Fvp133 AL T(SGPT) 19 U/L 01/05/2018 Comp Metabolic Mil751 BI LI T 0.9 mg/dL 01/05/2018 Comp Metabolic Muw659 AL BUMIN 4.1 g/dL 01/05/2018 Comp Metabolic Mcb448 TP RO 7.1 g/dL 01/05/2018 Comp Metabolic Ikr099 GL OB 3.0 g/dL 01/05/2018 Comp Metabolic Doq909 A/ G Ratio 1.4 Ratio 01/05/2018 Comp Metabolic Tbl957 Os mo 287 mOsmo 01/05/2018 Free T4 Nlh219 FREE T4 1.05 ng/dL 01/05/2018 %Hba1C Ivp626 % HbA1c 84505-2 6.0 % 01/05/2018 %Hba1C Qqd709 Gluc Ave 126 mg/dL 01/05/2018 Cbc With [...] 27.3 % 01/05/2018 Cbc With Differential Ord2 [place]% 10.5 % 01/05/2018 Cbc With Differential Ord2 [...] 1.27 K/ul 01/05/2018 Cbc With Differential Ord2 [place] ABS# 0.5 K/ul 01/05/2018 Cbc With Differential Ord2 Eos ABS# 0.2 K/ul 01/05/2018 Cbc With Differential Ord2 Baso ABS# 0.1 K/ul 01/05/2018 Pt Frz2597 PT 20.7 seconds 01/05/2018 Pt Rnz9138 INR 1.8 01/05/2018 Pt Oqr0556 Low Intensity - 1.5-2.0 01/05/2018 Pt Fiq0192 Mod intensity - 2.0-3.0 01/05/2018 Pt Jvb3756 Hi intensity - 3.0-4.0 01/05/2018 Tsh Ord6 TSH (3rd IS) 2.34 uIU/mL 01/05/2018 Lipid Ord30 CHOL 156 mg/dL 01/05/2018 Lipid Ord30 HDL 48.0 mg/dl 01/05/2018 Lipid Ord30 TRIG 207 mg/dL 01/05/2018 Lipid Ord30 LDL 67 mg/dL 01/05/2018 Lipid Ord30 C/HDL 3.3 Ratio 01/05/2018 Pt Bnw6207 PT 28.3 seconds 11/26/2017 Pt Gac7355 INR 2.6 11/26/2017 Pt Mhd5684 Low Intensity - 1.5-2.0 11/26/2017 Pt Mpp7159 Mod intensity - 2.0-3.0 11/26/2017 Pt Joh8506 Hi intensity - 3.0-4.0 11/26/2017 Pt Xwb6537 PT 36.5 seconds 11/19/2017 Pt Jky0981 INR 3.6 11/19/2017 Pt Nyn9912 Low Intensity - 1.5-2.0 11/19/2017 Pt Yuz5235 Mod intensity - 2.0-3.0 11/19/2017 Pt Xbt6212 Hi intensity - 3.0-4.0 11/19/2017 Pt Tgb0400 PT 22.9 seconds 10/15/2017 Pt Uee6106 INR 2.0 10/15/2017 Pt Lik4779 Low Intensity - 1.5-2.0 10/15/2017 Pt Uyq1452 Mod intensity - 2.0-3.0 10/15/2017 Pt Ycb5284 Hi intensity - 3.0-4.0 10/15/2017 Pt Tsz1899 PT 25.9 seconds 10/01/2017 Pt Wqe9012 INR 2.4 10/01/2017 Pt Xdv7477 Low Intensity - 1.5-2.0 10/01/2017 Pt Ftq5601 Mod intensity - 2.0-3.0 10/01/2017 Pt Aqt5099 Hi intensity - 3.0-4.0 10/01/2017 Pt Zdx3745 PT 20.6 seconds 09/24/2017 Pt Seu6941 INR 1.8 09/24/2017 Pt Vyb4441 Low Intensity - 1.5-2.0 09/24/2017 Pt Brj8383 Mod intensity - 2.0-3.0 09/24/2017 Pt Vlv7440 Hi intensity - 3.0-4.0 09/24/2017 Pt Idf2303 PT 21.0 seconds 09/15/2017 Pt Frk1034 INR 1.8 09/15/2017 Pt Rnz2372 Low Intensity - 1.5-2.0 09/15/2017 Pt Kgn2443 Mod intensity - 2.0-3.0 09/15/2017 Pt Zef5542 Hi intensity - 3.0-4.0 09/15/2017 Pt Mrf5400 PT 19.0 seconds 09/03/2017 Pt Oeg1788 INR 1.6 09/03/2017 Pt Zmb6845 Low Intensity - 1.5-2.0 09/03/2017 Pt Gtd8492 Mod intensity - 2.0-3.0 09/03/2017 Pt Xqv0309 Hi intensity - 3.0-4.0 09/03/2017 Pt Ehx7412 PT 17.6 seconds 08/23/2017 Pt Fst6077 INR 1.5 08/23/2017 Pt Quh8394 Low Intensity - 1.5-2.0 08/23/2017 Pt Eia8683 Mod intensity - 2.0-3.0 08/23/2017 Pt Jwx8851 Hi intensity - 3.0-4.0 08/23/2017 Pt Xjq0705 PT 12.7 seconds 08/20/2017 Pt Lyr6132 INR 1.0 08/20/2017 Pt Wky1819 Low Intensity - 1.5-2.0 08/20/2017 Pt Clr2918 Mod intensity - 2.0-3.0 08/20/2017 Pt Aov7047 Hi intensity - 3.0-4.0 08/20/2017 Pt Lcn4652 PT 12.9 seconds 08/17/2017 Pt Tio5801 INR 1.0 08/17/2017 Pt Uqr5072 Low Intensity - 1.5-2.0 08/17/2017 Pt Oik1173 Mod intensity - 2.0-3.0 08/17/2017 Pt Ulu4731 Hi intensity - 3.0-4.0 08/17/2017 Pt Cgw9186 PT 18.5 seconds 08/10/2017 Pt Zql3681 INR 1.6 08/10/2017 Pt Etk3166 Low Intensity - 1.5-2.0 08/10/2017 Pt Gqc3395 Mod intensity - 2.0-3.0 08/10/2017 Pt Lyt4999 Hi intensity - 3.0-4.0 08/10/2017 Tsh Ord6 [...] 14.7 % 05/27/2017 Cbc With Differential Ord2 [place]% 8.1 % 05/27/2017 Cbc With Differential Ord2 [...] 1.11 K/ul 05/27/2017 Cbc With Differential Ord2 [place] ABS# 0.6 K/ul 05/27/2017 Cbc With Differential Ord2 Eos ABS# 0.2 K/ul 05/27/2017 Cbc With Differential Ord2 Baso ABS# 0.1 K/ul 05/27/2017 Pt Dzo5713 PT 28.2 seconds 05/27/2017 Pt Mah8466 INR 2.6 05/27/2017 Pt Hid9833 Low Intensity - 1.5-2.0 05/27/2017 Pt Nsf7461 Mod intensity - 2.0-3.0 05/27/2017 Pt Gnc6774 Hi intensity - 3.0-4.0 05/27/2017 Lipid Ord30 CHOL 167 mg/dL 05/27/2017 Lipid Ord30 HDL 49.0 mg/dl 05/27/2017 Lipid Ord30 TRIG 347 mg/dL 05/27/2017 Lipid Ord30 LDL 49 mg/dL 05/27/2017 Lipid Ord30 C/HDL 3.4 Ratio 05/27/2017 Magnesium Ord90 Mag 1.4 mg/dL 05/27/2017 %Hba1C Brh043 % HbA1c 77941-0 5.9 % 05/27/2017 %Hba1C Jir868 Gluc Ave 123 mg/dL 05/27/2017 Comp Metabolic Fcw713 NA 138 mEq/L 05/27/2017 Comp Metabolic Irt371 K 4.1 mEq/L 05/27/2017 Comp Metabolic Dos294 CL 101 mEq/L 05/27/2017 Comp Metabolic Pyv319 CO2 31.0 mEq/L 05/27/2017 Comp Metabolic Yfy903 AN ION GAP 10 05/27/2017 Comp Metabolic Xnw736 GL UCOSE 117 mg/dL 05/27/2017 Comp Metabolic Ipe100 Cr eat 0.9 mg/dL 05/27/2017 Comp Metabolic Zbi430 eG FR 62 ml/min/1.73m2 05/27 Comp Metabolic Qba021 BUN 25 mg/dL 05/27/2017 Comp Metabolic Zew227 B/ C Ratio 26.6 Ratio 05/27/2017 Comp Metabolic Uij411 CA LCIUM 9.5 mg/dL 05/27/2017 Comp Metabolic Zbz404 AL K PHOS 73 U/L 05/27/2017 Comp Metabolic Fvt809 T(SGOT) 18 U/L 05/27/2017 Comp Metabolic Jgu152 AL T(SGPT) 12 U/L 05/27/2017 Comp Metabolic Lwi946 BI LI T 0.5 mg/dL 05/27/2017 Comp Metabolic Oyd966 AL BUMIN 4.1 g/dL 05/27/2017 Comp Metabolic Irb942 TP RO 7.1 g/dL 05/27/2017 Comp Metabolic Ovm440 GL OB 3.0 g/dL 05/27/2017 Comp Metabolic Eqd907 A/ G Ratio 1.3 Ratio 05/27/2017 Comp Metabolic Tjl656 Os mo 281 mOsmo 05/27/2017 Free T4 Yih702 FREE T4 0.91 ng/dL 05/27/2017 Pt Lqe1249 PT 29.2 seconds 04/16/2017 Pt Bxh7511 INR 2.7 04/16/2017 Pt Kzd0205 Low Intensity - 1.5-2.0 04/16/2017 Pt Kjf3133 Mod intensity - 2.0-3.0 04/16/2017 Pt Qaq2252 Hi intensity - 3.0-4.0 04/16/2017 Pt Gjd8627 PT 30.7 seconds 03/31/2017 Pt Oea1962 INR 2.9 03/31/2017 Pt Xnr3659 Low Intensity - 1.5-2.0 03/31/2017 Pt Gva9119 Mod intensity - 2.0-3.0 03/31/2017 Pt Mwz0725 Hi intensity - 3.0-4.0 03/31/2017 Pt Veb7435 PT 21.3 seconds 03/26/2017 Pt Dzy7572 INR 1.9 03/26/2017 Pt Kba3959 Low Intensity - 1.5-2.0 03/26/2017 Pt Rda1551 Mod intensity - 2.0-3.0 03/26/2017 Pt Vrn6928 Hi intensity - 3.0-4.0 03/26/2017 Pt Fxo4177 PT 19.8 seconds 03/22/2017 Pt Ifn4204 INR 1.7 03/22/2017 Pt Qqz5774 Low Intensity - 1.5-2.0 03/22/2017 Pt Nnn4347 Mod intensity - 2.0-3.0 03/22/2017 Pt Cha3883 Hi intensity - 3.0-4.0 03/22/2017 Pt Deg6786 PT 15.6 seconds 03/19/2017 Pt Lod4550 INR 1.3 03/19/2017 Pt Nly9991 Low Intensity - 1.5-2.0 03/19/2017 Pt Zdw5792 Mod intensity - 2.0-3.0 03/19/2017 Pt Ixl3959 Hi intensity - 3.0-4.0 03/19/2017 Pt Kbl9986 PT 13.7 seconds 03/15/2017 Pt Mjx7845 INR 1.1 03/15/2017 Pt Foz6221 Low Intensity - 1.5-2.0 03/15/2017 Pt Vgt4454 Mod intensity - 2.0-3.0 03/15/2017 Pt Gwa2069 Hi intensity - 3.0-4.0 03/15/2017 Pt Pht2113 PT 25.8 seconds 01/28/2017 Pt Hxc9958 INR 2.4 01/28/2017 Pt Cqx7178 Low Intensity - 1.5-2.0 01/28/2017 Pt Nfh0754 Mod intensity - 2.0-3.0 01/28/2017 Pt Tkw3959 Hi intensity - 3.0-4.0 01/28/2017 %Hba1C Lqx078 % HbA1c 64295-6 6.4 % 10/23/2016 %Hba1C Qnj395 Gluc Ave 137 mg/dL 10/23/2016 Comp Metabolic Lsy217 NA 138 mEq/L 10/23/2016 Comp Metabolic Dgu189 K 3.4 mEq/L 10/23/2016 Comp Metabolic Tpj884 CL 100 mEq/L 10/23/2016 Comp Metabolic Ker636 CO2 30.0 mEq/L 10/23/2016 Comp Metabolic Kux294 AN ION GAP 11 10/23/2016 Comp Metabolic Taf473 GL UCOSE 139 mg/dL 10/23/2016 Comp Metabolic Nbm279 Cr eat 0.9 mg/dL 10/23/2016 Comp Metabolic Rlp806 eG FR 62 ml/min/1.73m2 10/23 Comp Metabolic Amh021 BUN 22 mg/dL 10/23/2016 Comp Metabolic Dva813 B/ C Ratio 23.4 Ratio 10/23/2016 Comp Metabolic Hwv560 CA LCIUM 8.7 mg/dL 10/23/2016 Comp Metabolic Jkh565 AL K PHOS 66 U/L 10/23/2016 Comp Metabolic Sfj910 T(SGOT) 20 U/L 10/23/2016 Comp Metabolic Hsw928 AL T(SGPT) 10 U/L 10/23/2016 Comp Metabolic Xse928 BI LI T 0.5 mg/dL 10/23/2016 Comp Metabolic Mnb341 AL BUMIN 3.5 g/dL 10/23/2016 Comp Metabolic Col495 TP RO 6.3 g/dL 10/23/2016 Comp Metabolic Ydw827 GL OB 2.8 g/dL 10/23/2016 Comp Metabolic Trm905 A/ G Ratio 1.3 Ratio 10/23/2016 Comp Metabolic Huv419 Os mo 281 mOsmo 10/23/2016 Pt Mou5774 PT 26.8 seconds 10/23/2016 Pt Wqt7222 INR 2.7 10/23/2016 Pt Fvr2315 Low Intensity - 1.5-2.0 10/23/2016 Pt Egl9129 Mod intensity - 2.0-3.0 10/23/2016 Pt Tmd0728 Hi intensity - 3.0-4.0 10/23/2016 Pt Svq9304 PT 28.3 seconds 09/25/2016 Pt Wuj4439 INR 2.8 09/25/2016 Pt Xax8128 Low Intensity - 1.5-2.0 09/25/2016 Pt Pqq5806 Mod intensity - 2.0-3.0 09/25/2016 Pt Ofw9583 Hi intensity - 3.0-4.0 09/25/2016 Metabolic Ord15 [...] Metabolic Ord15 CALCIUM 8.8 mg/dL 09/25/2016 Pt Njj2089 PT 30.6 seconds 09/11/2016 Pt Cfc0256 INR 3.2 09/11/2016 Pt Tzo4179 Low Intensity - 1.5-2.0 09/11/2016 Pt Rbn5950 Mod intensity - 2.0-3.0 09/11/2016 Pt Rwr3590 Hi intensity - 3.0-4.0 09/11/2016 Comp Metabolic Rvz209 NA 138 mEq/L 09/11/2016 Comp Metabolic Zfs350 K 4.4 mEq/L 09/11/2016 Comp Metabolic Zbx277 CL 103 mEq/L 09/11/2016 Comp Metabolic Ows414 CO2 31.0 mEq/L 09/11/2016 Comp Metabolic Ayk397 AN ION GAP 8 09/11/2016 Comp Metabolic Vyz485 GL UCOSE 146 mg/dL 09/11/2016 Comp Metabolic Xrm301 Cr eat 1.0 mg/dL 09/11/2016 Comp Metabolic Ist750 eG FR 60 ml/min/1.73m2 09/11 Comp Metabolic Gjy303 BUN 16 mg/dL 09/11/2016 Comp Metabolic Cie004 B/ C Ratio 16.5 Ratio 09/11/2016 Comp Metabolic Hri377 CA LCIUM 8.7 mg/dL 09/11/2016 Comp Metabolic Oko437 AL K PHOS 52 U/L 09/11/2016 Comp Metabolic Nyp977 T(SGOT) 19 U/L 09/11/2016 Comp Metabolic Bey123 AL T(SGPT) 11 U/L 09/11/2016 Comp Metabolic Rmk701 BI LI T 0.7 mg/dL 09/11/2016 Comp Metabolic Yup048 AL BUMIN 3.3 g/dL 09/11/2016 Comp Metabolic Vzd084 TP RO 5.8 g/dL 09/11/2016 Comp Metabolic Mll534 GL OB 2.5 g/dL 09/11/2016 Comp Metabolic Tvm705 A/ G Ratio 1.3 Ratio 09/11/2016 Comp Metabolic Dhf734 Os mo 280 mOsmo 09/11/2016 C-Reactive Protein Qnt Crqnt CRP 0.1 mg/dl 08/21/2016 Comp Metabolic Voe885 NA 139 mEq/L 08/21/2016 Comp Metabolic Hiz400 K 4.1 mEq/L 08/21/2016 Comp Metabolic Tyd781 CL 102 mEq/L 08/21/2016 Comp Metabolic Hxn241 CO2 30.0 mEq/L 08/21/2016 Comp Metabolic Euq695 AN ION GAP 11 08/21/2016 Comp Metabolic Rdk806 GL UCOSE 148 mg/dL 08/21/2016 Comp Metabolic Ksg456 Cr eat 1.0 mg/dL 08/21/2016 Comp Metabolic Ukb853 eG FR 55 ml/min/1.73m2 08/21 Comp Metabolic Rom583 BUN 21 mg/dL 08/21/2016 Comp Metabolic Zrw046 B/ C Ratio 20.2 Ratio 08/21/2016 Comp Metabolic Okw081 CA LCIUM 9.4 mg/dL 08/21/2016 Comp Metabolic Vde437 AL K PHOS 63 U/L 08/21/2016 Comp Metabolic Izb702 T(SGOT) 23 U/L 08/21/2016 Comp Metabolic Mkp737 AL T(SGPT) 16 U/L 08/21/2016 Comp Metabolic Kru619 BI LI T 0.6 mg/dL 08/21/2016 Comp Metabolic Nqf802 AL BUMIN 3.9 g/dL 08/21/2016 Comp Metabolic Stn611 TP RO 6.8 g/dL 08/21/2016 Comp Metabolic Acf166 GL OB 2.9 g/dL 08/21/2016 Comp Metabolic Ktm365 A/ G Ratio 1.4 Ratio 08/21/2016 Comp Metabolic Yme804 Os mo 283 mOsmo 08/21/2016 Sed Rate Ord21 ESR 16 mm/hr 08/21/2016 Pt Yzf5536 PT 27.2 seconds 08/21/2016 Pt Mal8476 INR 2.7 08/21/2016 Pt Lrg2677 Low Intensity - 1.5-2.0 08/21/2016 Pt Xbs1458 Mod intensity - 2.0-3.0 08/21/2016 Pt Mtm3603 Hi intensity - 3.0-4.0 08/21/2016 Magnesium Ord90 Mag 1.9 mg/dL 08/21/2016 Pt Ggr7781 PT 25.9 seconds 06/17/2016 Pt Olr3947 INR 2.5 06/17/2016 Pt Nix7034 Low Intensity - 1.5-2.0 06/17/2016 Pt Pts4277 Mod intensity - 2.0-3.0 06/17/2016 Pt Yio8996 Hi intensity - 3.0-4.0 06/17/2016 Tsh Ord6 hTSH II 2.13 uIU/mL 06/08/2016 Free T4 Icv657 FREE T4 0.79 ng/dL 06/08/2016 Cbc With [...] 80.8 fl 06/08/2016 Cbc With Differential Ord2 [place]% 12.0 % 06/08/2016 Cbc With Differential Ord2 [...] 1.40 K/ul 06/08/2016 Cbc With Differential Ord2 [place] ABS# 0.7 K/ul 06/08/2016 Cbc With Differential Ord2 Eos ABS# 0.3 K/ul 06/08/2016 Cbc With Differential Ord2 Baso ABS# 0.1 K/ul 06/08/2016 %Hba1C Xil684 % HbA1c 17538-3 6.2 % 06/08/2016 %Hba1C Fvd581 Gluc Ave 131 mg/dL 06/08/2016 Comp Metabolic Kas170 NA 138 mEq/L 06/08/2016 Comp Metabolic Zps537 K 3.9 mEq/L 06/08/2016 Comp Metabolic Thg050 CL 105 mEq/L 06/08/2016 Comp Metabolic Jun295 CO2 27.0 mEq/L 06/08/2016 Comp Metabolic Wrr916 AN ION GAP 10 06/08/2016 Comp Metabolic Tih414 GL UCOSE 127 mg/dL 06/08/2016 Comp Metabolic Lyg004 Cr eat 1.0 mg/dL 06/08/2016 Comp Metabolic Pzw559 eG FR 59 ml/min/1.73m2 06/08 Comp Metabolic Mdk734 BUN 19 mg/dL 06/08/2016 Comp Metabolic Qns284 B/ C Ratio 19.4 Ratio 06/08/2016 Comp Metabolic Bda637 CA LCIUM 9.2 mg/dL 06/08/2016 Comp Metabolic Wen452 AL K PHOS 77 U/L 06/08/2016 Comp Metabolic Ejo448 T(SGOT) 19 U/L 06/08/2016 Comp Metabolic Wzn060 AL T(SGPT) 13 U/L 06/08/2016 Comp Metabolic Kyg403 BI LI T 0.5 mg/dL 06/08/2016 Comp Metabolic Bxh098 AL BUMIN 3.8 g/dL 06/08/2016 Comp Metabolic Rjf093 TP RO 6.6 g/dL 06/08/2016 Comp Metabolic Mux460 GL OB 2.8 g/dL 06/08/2016 Comp Metabolic Rez189 A/ G Ratio 1.4 Ratio 06/08/2016 Comp Metabolic Krk873 Os mo 280 mOsmo 06/08/2016 Pt Xgt6221 PT 36.1 seconds 06/08/2016 Pt Hed7975 INR 3.9 06/08/2016 Pt Itt2598 Low Intensity - 1.5-2.0 06/08/2016 Pt Mxi5642 Mod intensity - 2.0-3.0 06/08/2016 Pt Vsw5153 Hi intensity - 3.0-4.0 06/08/2016 Lipid Ord30 CHOL 149 mg/dL 06/08/2016 Lipid Ord30 HDL 46.0 mg/dl 06/08/2016 Lipid Ord30 TRIG 279 mg/dL 06/08/2016 Lipid Ord30 LDL 47 mg/dL 06/08/2016 Lipid Ord30 C/HDL 3.2 Ratio 06/08/2016 Pt Erw5079 PT 30.9 seconds 02/12/2016 Pt Eec4571 INR 3.2 02/12/2016 Pt Zzs0923 Low Intensity - 1.5-2.0 02/12/2016 Pt Bnh7577 Mod intensity - 2.0-3.0 02/12/2016 Pt Nss2957 Hi intensity - 3.0-4.0 02/12/2016 Free T4 Thu654 FREE T4 1.24 ng/dL 09/27/2015 %Hba1C Dhq245 % HbA1c 23927-1 6.4 % 09/27/2015 %Hba1C Vkj070 Gluc Ave 137 mg/dL 09/27/2015 Tsh Ord6 hTSH II 0.37 uIU/mL 09/27/2015 Pt Pla4813 PT 26.2 seconds 09/27/2015 Pt Ewj4751 INR 2.5 09/27/2015 Pt Djs4303 Low Intensity - 1.5-2.0 09/27/2015 Pt Qma6013 Mod intensity - 2.0-3.0 09/27/2015 Pt Qze5782 Hi intensity - 3.0-4.0 09/27/2015 Pt Vvc1847 PT 27.6 seconds 2015 Pt Jww9195 INR 2.7 2015 Pt Lik9839 Low Intensity - 1.5-2.0 2015 Pt Bux0305 Mod intensity - 2.0-3.0 2015 Pt Vkb6153 Hi intensity - 3.0-4.0 2015 %Hba1C Xhq881 % HbA1c 33947-1 6.1 % 06/11/2015 %Hba1C Dha767 Gluc Ave 128 mg/dL 06/11/2015 Cbc With [...] Ord2 RDW 15.8 % 06/10/2015 Comp Metabolic Ylo380 NA 139 mEq/L 06/10/2015 Comp Metabolic Byy533 K 4.1 mEq/L 06/10/2015 Comp Metabolic Ymx876 CL 105 mEq/L 06/10/2015 Comp Metabolic Pce936 CO2 27.0 mEq/L 06/10/2015 Comp Metabolic Dtn463 AN ION GAP 11 06/10/2015 Comp Metabolic Jug920 GL UCOSE 127 mg/dL 06/10/2015 Comp Metabolic Rxa174 Cr eat 1.0 mg/dL 06/10/2015 Comp Metabolic Vhs799 eG FR 59 ml/min/1.73m2 06/10 Comp Metabolic Mip087 BUN 21 mg/dL 06/10/2015 Comp Metabolic Oqi969 B/ C Ratio 21.2 Ratio 06/10/2015 Comp Metabolic Alg743 CA LCIUM 9.2 mg/dL 06/10/2015 Comp Metabolic Gnc119 AL K PHOS 87 U/L 06/10/2015 Comp Metabolic Qrw578 T(SGOT) 20 U/L 06/10/2015 Comp Metabolic Lmq687 AL T(SGPT) 17 U/L 06/10/2015 Comp Metabolic Jrr464 BI LI T 0.4 mg/dL 06/10/2015 Comp Metabolic Oqr275 AL BUMIN 4.1 g/dL 06/10/2015 Comp Metabolic Gyk135 TP RO 7.2 g/dL 06/10/2015 Comp Metabolic Owg868 GL OB 3.1 g/dL 06/10/2015 Comp Metabolic Wmf586 A/ G Ratio 1.3 Ratio 06/10/2015 Comp Metabolic Esq248 Os mo 282 mOsmo 06/10/2015 Tsh Ord6 hTSH II 0.86 uIU/mL 06/10/2015 Lipid Ord30 CHOL 161 mg/dL 06/10/2015 Lipid Ord30 HDL 49.0 mg/dl 06/10/2015 Lipid Ord30 TRIG 208 mg/dL 06/10/2015 Lipid Ord30 LDL 70 mg/dL 06/10/2015 Lipid Ord30 C/HDL 3.3 Ratio 06/10/2015 Pt [id number] PT 25.0 seconds 04/09/2015 Pt Juh9251 INR 2.4 04/09/2015 Pt Pgs1062 Low Intensity - 1.5-2.0 04/09/2015 Pt Lop1352 Mod intensity - 2.0-3.0 04/09/2015 Pt Wuh7717 Hi intensity - 3.0-4.0 04/09/2015 Free T4 Piy428 FREE T4 1.05 ng/dL 01/22/2015 Pt Kuy2418 PT 27.2 seconds 01/22/2015 Pt Rpk5268 INR 2.6 01/22/2015 Pt Yzr7867 Low Intensity - 1.5-2.0 01/22/2015 Pt Jje8374 Mod intensity - 2.0-3.0 01/22/2015 Pt Wlr2148 Hi intensity - 3.0-4.0 01/22/2015 Cbc With [...] Differential Ord2 RDW 15.2 % 01/22/2015 B12 Nib318 B12 402.00 pg/ml 01/22/2015 Tsh Ord6 hTSH II 0.65 uIU/mL 01/22/2015 Lipid Ord30 CHOL 166 mg/dL 01/22/2015 Lipid Ord30 HDL 48.0 mg/dl 01/22/2015 Lipid Ord30 TRIG 264 mg/dL 01/22/2015 Lipid Ord30 LDL 65 mg/dL 01/22/2015 Lipid Ord30 C/HDL 3.5 Ratio 01/22/2015 Comp Metabolic Cyg148 NA 138 mEq/L 01/22/2015 Comp Metabolic Vlp350 K 4.1 mEq/L 01/22/2015 Comp Metabolic Smo306 CL 104 mEq/L 01/22/2015 Comp Metabolic Itg049 CO2 29.0 mEq/L 01/22/2015 Comp Metabolic Ryj761 AN ION GAP 9 01/22/2015 Comp Metabolic Xgr865 GL UCOSE 106 mg/dL 01/22/2015 Comp Metabolic Dxh203 Cr eat 0.9 mg/dL 01/22/2015 Comp Metabolic Epn636 eG FR 63 ml/min/1.73m2 01/22 Comp Metabolic Uch732 BUN 21 mg/dL 01/22/2015 Comp Metabolic Twl406 B/ C Ratio 22.3 Ratio 01/22/2015 Comp Metabolic Uyc490 CA LCIUM 9.4 mg/dL 01/22/2015 Comp Metabolic Klo003 AL K PHOS 83 U/L 01/22/2015 Comp Metabolic Bhn845 T(SGOT) 23 U/L 01/22/2015 Comp Metabolic Hvs372 AL T(SGPT) 18 U/L 01/22/2015 Comp Metabolic Wbb753 BI LI T 0.8 mg/dL 01/22/2015 Comp Metabolic Hgm464 AL BUMIN 4.2 g/dL 01/22/2015 Comp Metabolic Evj780 TP RO 7.3 g/dL 01/22/2015 Comp Metabolic Xxs312 GL OB 3.1 g/dL 01/22/2015 Comp Metabolic Hzb993 A/ G Ratio 1.4 Ratio 01/22/2015 Comp Metabolic Pzw520 Os mo 279 mOsmo 01/22/2015 Review of [...] Date URINALYSIS NONAUTO W /O SCOPE CPT-4: 65445 03/05/2017 Vital Signs Date Vital 04/14/2018 Blood Pressure 1: 116/78 Code: 8480-6 BMI: 41.6 Code: 23841-0 Heart Rate 1: 72 bpm Height: 5'1" SpO2: 98% Weight: 220 lbs 01/18/2018 Blood Pressure 1: 132/74 Code: 8480-6 BMI: 43.5 Code: 68913-5 Heart Rate 1: 70 bpm Height: 5'1" SpO2: 97% Weight: 230 lbs 01/04/2018 Blood Pressure 1: 134/76 Code: 8480-6 BMI: 42.7 Code: 42461-5 Heart Rate 1: 83 bpm Height: 5'1" SpO2: 98% Weight: 226 lbs 09/23/2017 Blood Pressure 1: 124/76 Code: 8480-6 BMI: 42.3 Code: 25087-7 Heart Rate 1: 94 bpm Height: 5'1" SpO2: 96% Weight: 224 lbs 05/27/2017 Blood Pressure 1: 146/78 Code: 8480-6 BMI: 41.4 Code: 99610-3 Heart Rate 1: 85 bpm Height: 5'1" SpO2: 98% Weight: 219 lbs 02/24/2017 Blood Pressure 1: 138/66 Code: 8480-6 BMI: 41.4 Code: 44585-4 Heart Rate 1: 78 bpm Height: 5'1" SpO2: 97% Weight: 219 lbs 11/02/2016 Blood Pressure 1: 144/72 Code: 8480-6 BMI: 46.1 Code: 33373-2 Heart Rate 1: 78 bpm Height: 5'1" SpO2: 98% Weight: 244 lbs 09/30/2016 Blood Pressure 1: 130/76 Code: 8480-6 BMI: 45.0 Code: 06100-3 Heart Rate 1: 86 bpm Height: 5'1" SpO2: 98% Weight: 238 lbs 09/10/2016 Blood Pressure 1: 136/68 Code: 8480-6 BMI: 46.3 Code: 06517-9 Heart Rate 1: 83 bpm Height: 5'1" SpO2: 98% Weight: 245 lbs 08/20/2016 Blood Pressure 1: 142/78 Code: 8480-6 BMI: 45.3 Code: 15669-3 Heart Rate 1: 84 bpm Height: 5'1" SpO2: 99% Weight: 240 lbs 06/08/2016 Blood Pressure 1: 134/76 Code: 8480-6 BMI: 44.2 Code: 06038-3 Heart Rate 1: 86 bpm Height: 5'1" SpO2: 96% Weight: 234 lbs 04/02/2016 Blood Pressure 1: 142/70 Code: 8480-6 BMI: 44.6 Code: 15412-2 Heart Rate 1: 78 bpm Height: 5'1" SpO2: 97% Weight: 236 lbs 01/14/2016 Blood Pressure 1: 146/72 Code: 8480-6 BMI: 44.2 Code: 90169-9 Heart Rate 1: 86 bpm Height: 5'1" SpO2: 96% Weight: 234 lbs 10/02/2015 Blood Pressure 1: 158/76 Code: 8480-6 BMI: 44.2 Code: 80111-8 Heart Rate 1: 67 bpm Height: 5'1" SpO2: 97% Weight: 234 lbs 07/15/2015 Blood Pressure 1: 148/78 Code: 8480-6 Blood Pressure 1: 200/90 Code: 8480-6 BMI: 44.0 Code: 57469-2 Heart Rate 1: 89 bpm Height: 5'1" SpO2: 97% Weight: 233 lbs 06/10/2015 Blood Pressure 1: 140/82 Code: 8480-6 BMI: 44.0 Code: 94823-3 Heart Rate 1: 78 bpm Height: 5'1" [...] wearing crocs and there was a new kyr[place] on the floor: her foot didn't move [...] Encounters Encounter Performer Loca tion Codes Date () 85541 EST. P ATIENT, LEVEL IV Diagnosis: Essential (primary) hypertension[ICD10: I10] Diagnosis: Hypothyroidism, unspecified[ICD10: E03.9] Diagnosis: Impaired fasting glucose[ICD10: R73.01] Diagnosis: intermediate (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[ICD10: Z79.01] Edna Almanza MD, [facility] CPT-4: 47640 04/14/2018 ([id number]) 00821 EST. P ATIENT, LEVEL III Diagnosis: Localized edema[ICD10: R60.0] Diagnosis: Gastro-esophageal reflux disease without esophagitis[ICD10: K21.9] Edna Almanza MD, [facility] CPT-4: 74279 01/18/2018 ([id number]) 70462 EST. P ATIENT, LEVEL IV Diagnosis: Gastro-esophageal reflux disease without esophagitis[ICD10: K21.9] Diagnosis: Localized edema[ICD10: R60.0] Diagnosis: Essential (primary) hypertension[ICD10: I10] Diagnosis: Hypothyroidism, unspecified[ICD10: E03.9] Diagnosis: Impaired fasting glucose[ICD10: R73.01] Edna Almanza MD, [facility] CPT-4: 33224 01/04/2018 ([id number]) 03500 EST. 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 P ATIENT, LEVEL IV Diagnosis: Essential (primary) hypertension[ICD10: I10] Diagnosis: Mixed hyperlipidemia[ICD10: E78.2] Diagnosis: Hypothyroidism, unspecified[ICD10: E03.9] Diagnosis: Impaired fasting glucose[ICD10: R73.01] Diagnosis: 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[ICD10: Z79.01] Edna Almanza MD, [facility] CPT-4: 00059 05/27/2017 [id number] EST. PATIENT, LEVEL III Diagnosis: Pain in right hip[ICD10: M25.551] Nata Almanza MD, [facility] CPT-4: 03725 02/24/2017 ([id number]) 93960 EST. [facility] Diagnosis: Essential (primary) hypertension[ICD10: I10] Diagnosis: Localized edema[ICD10: R60.0] Diagnosis: Pain in right hip[ICD10: M25.551] Sarai Almanza MD, [facility] CPT-4: 18333 11/02/2016 ([id number]) 78017 EST. [facility] Diagnosis: Essential (primary) hypertension[ICD10: I10] Diagnosis: Localized edema[ICD10: R60.0] Sarai Almanza MD, [facility] CPT-4: 34574 09/30/2016 [id number] EST. PATIENT, LEVEL IV Diagnosis: Localized edema[ICD10: R60.0] Diagnosis: Pain in joints of left hand[ICD10: M25.542] Diagnosis: Pain in joints of right hand[ICD10: M25.541] Nata Almanza MD, [facility] CPT-4: 73582 09/10/2016 07094 EST. PATIENT, LEVEL IV Diagnosis: Localized edema[ICD10: R60.0] Diagnosis: Pain in joints of left hand[ICD10: M25.542] Diagnosis: Pain in joints of right hand[ICD10: M25.541] Diagnosis: Other fatigue[ICD10: R53.83] Nata Almanza MD, [facility] CPT-4: 50271 08/20/2016 [id number] EST. PATIENT, LEVEL IV Diagnosis: Essential (primary) hypertension[ICD10: I10] Diagnosis: Other detention (current) drug therapy[ICD10: Z79.899] Diagnosis: Tinnitus, bilateral[ICD10: H93.13] Nata Almanza MD, [facility] CPT-4: 12064 06/08/2016 69732 EST. PATIENT, LEVEL IV Diagnosis: Other allergic rhinitis[ICD10: J30.89] Diagnosis: Acute laryngopharyngitis[ICD10: J06.0] Nata Almanza MD, [facility] CPT-4: 50830 04/02/2016 [id number] EST. PATIENT, LEVEL IV Diagnosis: Left upper quadrant pain[ICD10: R10.12] Nata Almanza MD, [facility] CPT-4: 51646 01/14/2016 [id number] EST. PATIENT, LEVEL IV Diagnosis: Pain in left shoulder[ICD10: M25.512] Diagnosis: Body mass index (BMI) 40.0-44.9, adult[ICD10: Z68.41] Nata Almanza MD, [facility] CPT-4: 17709 10/02/2015 09282 EST. 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] [facility] CPT-4: 44193 06/10/2015 ([id number]) OFFICE VISI T, NEW - LEVEL 4 Diagnosis: ESSENTIAL HYPERTENSION[ICD9: 401.9] Diagnosis: HYPOTHYROIDISM[ICD9: 244.9] Diagnosis: ENCNTR LONG-RX USE NEC[ICD9: V58.69] Diagnosis: HYPERLIPIDEMIA[ICD9: 272.4] Diagnosis: Vitamin B12 deficiency[ICD9: 266.2] Diagnosis: Status post gastric surgery[ICD9: V45.89] Diagnosis: Snoring[ICD9: 786.09] [facility] CPT-4: 13104 01/22/2015 Plan of Care Planned Activity Notes C odes Status Date Visit Plan: Hypertension - donita ramirez - [...] Hgb A1C 04/14/2018 Appointment: Edna Douglas WPtel: [facility] (15 min) Moderate 04/14/2018 Patient [...] to further attempt to reduce peripheral edema. QTQS-jxmiinuy-yhyecrme prilosec BID and carafate QID -discussed low spice, low acidic diet 01/18/2018 Appointment: Edna Douglas WPtel: [facility] [place] [phone] (15 min) Moderate 01/18/2018 Patient Education: Patient [...] of control. 01/04/2018 Appointment: Edna Douglas WPtel: [address] [place], [place] [phone] (30 min) Complex 01/04/2018 Patient Education: Patient Medication Summary Completed 01/04/2018 Care Plan: SCREENINGMAMMOGRAPHYDIGITAL LOINC : 31198-2 Pending 01/04/2018 Visit Plan: Abdominal hernia - [...] at home. 09/23/2017 Appointment: [phone] (15 min) Moderate 09/23/2017 Patient Education: Patient [...] medications. 05/27/2017 Appointment: [phone] [place] (30 min) Complex 05/27/2017 Patient Education: [...] surgical clearance by Dr. Palacios. 02/24/2017 Appointment: Shadi Nata [facility]el[phone] (30 min) Complex 02/24/2017 Patient Education: Patient [...] Chaney. 11/02/2016 Appointment: Sarai Almanza WPtel: [phone] [facility] [place] (15 min) Moderate 11/02/2016 Patient Education: [...] edema. 09/30/2016 Appointment: Sar[facility]man[facility]Ptel[phone] [place] (15 min) Moderate 09/30/2016 Patient Education: [...] edema. 09/10/2016 Appointment: Nata Hsu WPtel: [address] [place] [address] (30 min) Complex 09/10/2016 Patient Education: Patient [...] edema. 08/20/2016 Appointment: Nata Hsu WPtel: [address] [place] [address] (30 min) Complex 08/20/2016 Patient Education: Patient Medication Summary Completed 08/20/2016 Referral: [facility] [address] Referral Initiated 07/02/2016 Visit Plan: Chronic [...] 06/08/2016 Care Plan: Referral Order SNOMED-CT : [id number] Pending 06/08/2016 Visit Plan: URI - Pt [...] spray. 04/02/2016 Appointment: Nata Hsu WPtel: [phone] [facility] [place] (30 min) Complex 04/02/2016 Patient Education: [...] pain 01/14/2016 Appointment: Edna Douglas [facility]Ptel: [phone] [phone] [place] (30 min) Complex 01/14/2016 Patient Education: Patient Medication Summary Completed 01/14/2016 Patient Education: Obesity Completed 01/14/2016 Care Plan: BMI Above normal followup DAVID F-MGMT EDUC & TRAIN 1 PT Pending 10/24/2015 Care Plan: X-RAY EXAM OF SHOULDER LOINC : 85755-3 Pending 10/24/2015 Visit Plan: Left shoulder pain [...] weight check. 10/02/2015 Appointment: Edna Douglas WPtel: [address] [place], [place] [phone] (15 min) Moderate 10/02/2015 Patient Education: Patient [...] ses Completed 06/10/2015 Appointment: Sarai Almanza WPtel: [facility]6 [facility] (15 min) Moderate 04/22/2015 Visit Plan: [...] to medications. 01/22/2015 Appointment: Sarai Almanza WPtel: [facility]6 [facility] [place] (S) New Patient 01/22/2015 Patient Education: Patient Medication Summary Completed 01/22/2015 Patient Education: Hypertension Completed 01/22/2015 Referral: [facility] Referral Initiated Instructions Comment dr almanza will hav e the staff [...] to further attempt to reduce peripheral edema. CONTINUE LASIX NE EDED FOR SWELLING CHECK [...] be better served by Dr. Betancur at [facility]. I have recommended a referral to dr. cecelia betancur at [facility]. Chronic anticoagulation - continue with coumadin - [...] if they worsen, or with other concerns. REFILL CARAFATE DISCUSSED EGD IF SYMPTOMS PERSIST [...] to further attempt to reduce peripheral edema. QTXV-mifejvlc-uopphxoj prilosec BID and carafate QID -discussed low spice, low acidic diet
--- OUTSIDE RECORDS SUMMARY | 2020-01-16 23:32 | XMS REPORT | CCD ---
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 [id number] 2017 Unknown Family history Father Diagnosis Age At Onset Hyperlipidemia Unknown Heart Attack Unknown Mother Diagnosis Age At Onset Arthritis Unknown Social History Social History Element Codes Description Effective Dates Marital status Unknown M arried Nathan 09/30/2016 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79 ICD-10: R53.83 08/20/2016 Active 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 ICD-9: V58.69 ICD-10: [...] Fill Instructions Coumadin 4 mg tablet RxNorm: 834514 2 Tablet(s) daily 07/11/2018 02/05/2019 Active Generi c For:COUMADIN 4MG 07/22/2017 8:58:26 AM Coumadin 5 mg tablet RxNorm: 831463 Tablet(s) TAKE 1 TABLET BY MOUTH DIRE CTED 07/08/2018 01/03/2019 Ac tive Generic For:COUMADIN 5MG TAB 03/21/2018 9:13:00 AM Coumadin 1 mg tablet RxNorm: 374283 1 Tablet(s) PO daily 07/08/2018 08/06/2018 Active Coumadin 4 mg tablet RxNorm: 276683 Tablet(s) TAKE 1 TABLET BY MOUTH THREE T IMES PER WEEK (WEDNESDAY, WEDNESDAY AND WEDNESDAY) 07/08/2018 07/10/2018 Inactive Gene andre For:COUMADIN 4MG 07/22/2017 8:58:26 AM venlafaxine ER 75 mg capsule,extended release 24 hr RxNorm: 700677 Capsule(s) TAKE 1 CAPSULE BY MOUTH ONCE DAILY 06/23/2018 06/17/2019 Active Generic For:*EFFEXOR XR 75MG 06/19/2017 12:23:45 PM sodium bicarbonate 6 50 mg tablet RxNorm: 912035 Tablet(s) TAKE 2 TABL ETS BY MOUTH TWICE DAILY 06/23/2018 12/19/2018 Active 12/20/2017 9:10:59 AM Coumadin 1 mg tablet RxNorm: 837977 1 Tablet(s) PO daily 06/17/2018 07/07/2018 Inactive Coumadin 1 mg tablet RxNorm: 454345 1 Tablet(s) PO daily 06/17/2018 06/16/2018 Inactive clonazepam 0.5 mg ta blet RxNorm: 626070 1 Tablet(s) PO BID 06/08/2018 11/04/2018 Active Synthroid 137 mcg ta blet RxNorm: 129558 TAKE 1 TABLET BY MOUT H ONCE DAILY 05/18/2018 11/13/2018 Ac tive Generic For:SYNTHROID 137MCG TAB 2017 8:57:54 AM spironolactone 25 mg tablet RxNorm: 453607 TAKE 1 TABLET BY MOUT H EVERY DAY 05/18/2018 05/12/2019 Ac tive Generic For:*ALDACTONE 25MG 05/18/2018 8:57:50 AM Carafate 1 gram tablet RxNorm: 473811 TAKE ONE TABLET BY MOUTH BEFORE MEALS AN D AT BEDTIME 05/18/2018 07/12/2018 Inactive Generic For:CARAFATE 1GM 1 07/18/2017 8:38:28 AM allopurinol 300 mg t ablet RxNorm: 528767 TAKE 1 TABLET BY MOUT H ONCE DAILY. 04/18/2018 10/14/2018 Ac tive Generic For:ZYLOPRIM 300 MG TABLET 03/22 9:13:47 AM Lasix 20 mg tablet RxNorm: 154912 TAKE ONE TABLET BY MOUTH DAILY 04/18/2018 08/15/2018 Ac tive Generic For:LASIX 20MG 04/18/2018 9:13: 50 AM Carafate 1 gram tablet RxNorm: 858957 TAKE ONE TABLET BY MOUTH BEFORE MEALS AN D AT BEDTIME 04/18/2018 05/17/2018 Inactive Generic For:CARAFATE 1GM 1 9:32:51 AM Coumadin 5 mg tablet RxNorm: 485224 TAKE 1 TABLET BY MOUTH DIRECTED 03/21/2018 07/07/2018 In active Generic For:COUMADIN 5MG TAB 03/21/2018 9:13:00 AM Carafate 1 gram tablet RxNorm: 225412 TAKE ONE TABLET BY MOUTH BEFORE MEALS AN D AT BEDTIME 03/21/2018 04/17/2018 Inactive Generic For:CARAFATE 1GM 1 9:14:24 AM Carafate 1 gram tablet RxNorm: 475592 1 Tablet(s) PO AC & HS 02/17/2018 03/20/2018 Inactive atenolol 100 mg tablet RxNorm: 914432 1 Tablet(s) PO daily 02/04/2018 09/01/2018 Active atenolol 50 mg tablet RxNorm: 179955 1 Tablet(s) PO daily 02/03/2018 02/03/2018 Inactive omeprazole 20 mg cap sean,delayed release RxNorm: 426729 1 Capsule(s) BID 01/21/2018 01/15/2019 Ac tive Generic For:PRILOSEC 20MG 07/22/2017 8:5 8:20 AM Carafate 1 gram tablet RxNorm: 799106 1 Tablet(s) PO AC & HS 01/21/2018 02/16/2018 Inactive Carafate 1 gram tablet RxNorm: 396810 1 Tablet(s) PO AC & HS 01/18/2018 01/20/2018 Inactive Carafate 1 gram tablet RxNorm: 323175 1 Tablet(s) PO AC & HS 01/18/2018 02/27/2018 Inactive Carafate 1 gram tablet RxNorm: 103481 1 Tablet(s) PO AC & HS TAKE ONE TABLET B Y MOUTH TWICE DAILY 01/18/2018 05/17/2018 Inactive Generic For:CARAFATE 1GM 0 12/20/2017 9:10:56 AM omeprazole 20 mg cap sean,delayed release RxNorm: 801885 Capsule(s) TAKE 1 CAP SEAN BY MOUTH EVERY DAY 01/17/2018 01/20/2018 Inactive Generic For:PRILOSEC 20MG 0 07/22/2017 8:58:20 AM omeprazole 20 mg cap sean,delayed release RxNorm: 628091 Capsule(s) TAKE 1 CAP SEAN BY MOUTH EVERY DAY 01/14/2018 01/16/2018 Inactive Generic For:PRILOSEC 20MG 07/22/2017 8:58:20 AM Plavix 75 mg tablet RxNorm: 907384 1 Tablet(s) PO daily 01/07/2018 07/05/2018 Inactive clonazepam 0.5 mg ta blet RxNorm: 821024 1 Tablet(s) PO BID 01/07/2018 06/05/2018 Inactive Carafate 1 gram tablet RxNorm: 687104 1 Tablet(s) PO AC & HS 01/04/2018 01/17/2018 Inactive Lasix 20 mg tablet RxNorm: 028589 TAKE ONE TABLET BY MOUTH DAILY 12/20/2017 04/17/2018 In active Generic For:LASIX 20MG 12/20/2017 9:11: 03 AM sodium bicarbonate 6 50 mg tablet RxNorm: 361447 TAKE 2 TABLETS BY JAVON TH TWICE DAILY 12/20/2017 06/17/2018 In active 12/20/2017 9:10:59 AM Carafate 1 gram tablet RxNorm: 395570 TAKE ONE TABLET BY MOUTH TWICE DAILY 12/20/2017 01/17/2018 In active Generic For:CARAFATE 1GM 12/20/2017 9:1 0:56 AM Synthroid 137 mcg ta blet RxNorm: 196068 TAKE 1 TABLET BY MOUT H ONCE DAILY 11/19/2017 05/17/2018 In active Generic For:SYNTHROID 137MCG TAB 2017 8:58:04 AM Detrol LA 4 mg capsu le,extended release RxNorm: 907222 TAKE 1 CAPSULE BY JAVON TH ONCE DAILY 10/20/2017 04/13/2018 Inactive Generic For:DETROL LA 4MG C AP 10/20/2017 9:01:56 AM allopurinol 300 mg t ablet RxNorm: 651631 TAKE 1 TABLET BY MOUT H ONCE DAILY. 10/20/2017 04/17/2018 In active Generic For:ZYLOPRIM 300 MG TABLET 07/2017 9:01:59 AM Coumadin 5 mg tablet RxNorm: 024419 1 Tablet(s) PO UD 10/01/2017 03/20/2018 Inactive cyclobenzaprine 5 mg tablet RxNorm: 053459 1 Tablet(s) PO TID as needed myscle spasm 09/23/2017 10/12/2017 Inactive Lipitor 40 mg tablet RxNorm: 784752 TAKE 1 TABLET BY MOUTH ONCE DAILY 09/20/2017 09/14/2018 Ac tive Generic For:LIPITOR 40MG 09/20/2017 8:5 6:04 AM atenolol 100 mg tablet RxNorm: 464405 1 Tablet(s) PO daily 08/30/2017 02/03/2018 Inactive atenolol 50 mg tablet RxNorm: 854046 1 Tablet(s) PO daily 08/30/2017 08/30/2017 Inactive Lovenox 30 mg/0.3 mL subcutaneous syringe RxNorm: 198592 0.3 Milliliter(s) SQ Q12H 08/24/2017 09/06/2017 In active Lasix 20 mg tablet RxNorm: 462732 TAKE ONE TABLET BY MOUTH DAILY 08/23/2017 12/19/2017 In active Generic For:LASIX 20MG 08/21/2017 9:04: 27 AM Synthroid 137 mcg ta blet RxNorm: 519839 TAKE 1 TABLET BY MOUT H ONCE DAILY 08/23/2017 11/18/2017 In active Generic For:SYNTHROID 137MCG TAB 2017 9:04:30 AM Lovenox 30 mg/0.3 mL subcutaneous syringe RxNorm: 166317 0.3 Milliliter(s) SQ Q12H 08/10/2017 08/23/2017 In active clonazepam 0.5 mg ta blet RxNorm: 387595 1 Tablet(s) PO BID 08/04/2017 12/30/2017 Inactive Coumadin 4 mg tablet RxNorm: 590307 TAKE 1 TABLET BY MOUTH THREE TIMES PER W TWENTY-NINE PALMS (WEDNESDAY, WEDNESDAY AND WEDNESDAY) 07/22/2017 02/16/2018 Inactive Generic For:COUMADIN 4MG 07/22/2017 8:58:26 AM omeprazole 20 mg cap sean,delayed release RxNorm: 017985 TAKE 1 CAPSULE BY JAVON TH EVERY DAY 07/22/2017 01/13/2018 Inactive Generic For:PRILOSEC 20MG 07/22/2017 8: 58:20 AM Coumadin 4 mg tablet RxNorm: 524279 TAKE 1 TABLET BY MOUTH THREE TIMES PER W TWENTY-NINE PALMS (WEDNESDAY, WEDNESDAY AND WEDNESDAY) 07/22/2017 02/16/2018 Inactive Generic For:COUMADIN 4MG 07/22/2017 8:58:26 AM sodium bicarbonate 6 50 mg tablet RxNorm: 528117 TAKE 2 TABLETS BY JAVON TH TWICE DAILY 06/22/2017 12/18/2017 In active 06/19/2017 12:23:30 PM venlafaxine ER 75 mg capsule,extended release 24 hr RxNorm: 421057 TAKE 1 CAPSULE BY MOUTH ONCE DAILY 06/22/2017 06/16/2018 Inactive Generic For:*EFFEXOR XR 75M G 06/19/2017 12:23:45 PM Coumadin 5 mg tablet RxNorm: 998844 1 Tablet(s) PO UD 06/01/2017 09/30/2017 Inactive Keflex 500 mg capsule RxNorm: 167019 1 Capsule(s) PO TID 05/27/2017 06/02/2017 Inactive Synthroid 137 mcg ta blet RxNorm: 373186 TAKE 1 TABLET BY MOUT H ONCE DAILY 05/24/2017 08/21/2017 In active Generic For:SYNTHROID 137MCG TAB 2016 8:55:59 AM Carafate 1 gram tablet RxNorm: 904192 TAKE ONE TABLET BY MOUTH TWICE DAILY 05/24/2017 12/19/2017 In active Generic For:CARAFATE 1GM 05/24/2017 8:5 5:54 AM spironolactone 25 mg tablet RxNorm: 063592 1 Tablet(s) PO daily 05/24/2017 05/17/2018 Inactive Detrol LA 4 mg capsu le,extended release RxNorm: 435746 1 Capsule(s) PO daily TAKE 1 CAPSULE BY MOUTH ONCE DAILY 05/10/2017 10/19/2017 Inactive Generic For:DETROL LA 4MG CAP 02/19/2017 2:36:00 PM Lasix 20 mg tablet RxNorm: 501260 TAKE ONE TABLET BY MOUTH DAILY 04/23/2017 08/20/2017 In active Generic For:LASIX 20MG 04/23/2017 9:04: 01 AM Coumadin 4 mg tablet RxNorm: 327338 TAKE 1 TABLET BY MOUTH THREE TIMES PER W TWENTY-NINE PALMS (WEDNESDAY, WEDNESDAY AND WEDNESDAY) 04/23/2017 07/21/2017 Inactive Generic For:COUMADIN 4MG 04/23/2017 9:04:05 AM allopurinol 300 mg t ablet RxNorm: 813172 TAKE 1 TABLET BY MOUT H ONCE DAILY. 04/23/2017 10/19/2017 In active Generic For:ZYLOPRIM 300 MG TABLET 08/2016 9:03:57 AM potassium chloride 2 0 mEq/15 mL oral liquid RxNorm: 492502 Milliliter(s) 30 Milliliter(s) (40mEq) PO daily 03/24/2017 07/21/2017 Inactive Lovenox 30 mg/0.3 mL subcutaneous syringe RxNorm: 338410 0.3 Milliliter(s) SQ Q12H 03/22/2017 03/26/2017 In active Lovenox 30 mg/0.3 mL subcutaneous syringe RxNorm: 484024 0.3 Milliliter(s) SQ Q12H 03/19/2017 03/20/2017 In active Lovenox 30 mg/0.3 mL subcutaneous syringe RxNorm: 889591 0.3 Milliliter(s) SQ Q12H 03/16/2017 03/18/2017 In active clonazepam 0.5 mg ta blet RxNorm: 562022 1 Tablet(s) PO BID 03/02/2017 07/28/2017 Inactive Lovenox 30 mg/0.3 mL subcutaneous syringe RxNorm: 516306 1 injection SQ BID do NOT take the night time dose the day before surgery, or the morning dose the day of surgery 03/01/2017 03/07/2017 Inactive Lovenox 30 mg/0.3 mL subcutaneous syringe RxNorm: 833321 1 injection SQ BID 03/01/2017 02/28/2017 In active Detrol LA 4 mg capsu le,extended release RxNorm: 467935 TAKE 1 CAPSULE BY JAVON TH ONCE DAILY 02/19/2017 05/09/2017 Inactive Generic For:DETROL LA 4MG C AP 02/19/2017 2:36:00 PM hydrocodone 5 mg-humberto taminophen 325 mg tablet RxNorm: 517851 1-2 Tablet(s) PO Q6 P RN 02/04/2017 No Stop Date Active Zetia 10 mg tablet RxNorm: 804578 TAKE 1 TABLET BY MOUTH DAILY 01/25/2017 04/13/2018 Inactive 01/23/2017 9:03:48 AM omeprazole 20 mg cap sean,delayed release RxNorm: 900757 TAKE 1 CAPSULE BY JAVON TH EVERY DAY 01/25/2017 07/21/2017 Inactive Generic For:PRILOSEC 20MG 01/23/2017 9: 03:45 AM Coumadin 4 mg tablet RxNorm: 164027 TAKE 1 TABLET BY MOUTH THREE TIMES PER W TWENTY-NINE PALMS (WEDNESDAY, WEDNESDAY AND WEDNESDAY) 01/25/2017 04/22/2017 Inactive Generic For:COUMADIN 4MG 01/23/2017 9:03:51 AM sodium bicarbonate 6 50 mg tablet RxNorm: 417915 TAKE 2 TABLETS BY JAVON TH TWICE DAILY 12/24/2016 06/21/2017 In active 12/24/2016 9:09:27 AM Lasix 20 mg tablet RxNorm: 493148 1 Tablet(s) PO daily 12/24/2016 04/22/2017 Inactive Synthroid 137 mcg ta blet RxNorm: 308382 TAKE 1 TABLET BY MOUT H ONCE DAILY 11/24/2016 05/22/2017 In active Generic For:SYNTHROID 137MCG TAB 2016 9:04:37 AM Coumadin 4 mg tablet RxNorm: 703752 TAKE 1 TABLET BY MOUTH THREE TIMES PER W TWENTY-NINE PALMS (WEDNESDAY, WEDNESDAY AND WEDNESDAY) 11/24/2016 01/22/2017 Inactive Generic For:COUMADIN 4MG 11/24/2016 9:04:41 AM hydrocodone 5 mg-humberto taminophen 325 mg tablet RxNorm: 219486 1-2 Tablet(s) PO Q6 P RN 11/17/2016 02/03/2017 In active Carafate 1 gram tablet RxNorm: 626063 TAKE ONE TABLET BY MOUTH TWICE DAILY 10/27/2016 05/23/2017 In active Generic For:CARAFATE 1GM 10/26/2016 8:3 9:42 AM allopurinol 300 mg t ablet RxNorm: 301281 Tablet(s) TAKE 1 TABL ET BY MOUTH ONCE DAILY. 10/26/2016 04/22/2017 Inactive Lipitor 40 mg tablet RxNorm: 993320 1 Tablet(s) PO daily 09/25/2016 09/19/2017 Inactive Coumadin 4 mg tablet RxNorm: 201289 TAKE 1 TABLET BY MOUTH THREE TIMES PER W TWENTY-NINE PALMS (WEDNESDAY, WEDNESDAY AND WEDNESDAY) 09/25/2016 11/23/2016 Inactive Generic For:COUMADIN 4MG 09/25/2016 8:55:58 AM Zetia 10 mg tablet RxNorm: 906304 1 Tablet(s) PO daily 09/25/2016 01/22/2017 Inactive gave 1 month of samples clonazepam 0.5 mg ta blet RxNorm: 932706 1 Tablet(s) PO BID 09/21/2016 02/16/2017 Inactive Lasix 20 mg tablet RxNorm: 562393 1 Tablet(s) PO daily 09/15/2016 12/23/2016 Inactive potassium chloride 2 0 mEq/15 mL oral liquid RxNorm: 691996 Milliliter(s) 30 Milliliter(s) (40mEq) PO daily 09/15/2016 01/12/2017 Inactive Lasix 20 mg tablet RxNorm: 063281 2 Tablet(s) PO daily 09/10/2016 09/12/2016 Inactive Lasix 20 mg tablet RxNorm: 647465 1 Tablet(s) PO daily 08/28/2016 08/30/2016 Inactive Lasix 20 mg tablet RxNorm: 689778 1 Tablet(s) PO daily 08/20/2016 08/22/2016 Inactive Detrol LA 4 mg capsu le,extended release RxNorm: 618882 TAKE 1 CAPSULE BY JAVON TH ONCE DAILY 07/27/2016 02/18/2017 Inactive Generic For:DETROL LA 4MG C AP 07/27/2016 9:08:27 AM Coumadin 4 mg tablet RxNorm: 926451 1 Tablet(s) PO 3 x week wed and sun 07/27/2016 09/24/2016 In active omeprazole 20 mg cap sean,delayed release RxNorm: 493611 Capsule(s) PO TAKE 1 CAPSULE BY MOUTH ONCE DAILY 07/27/2016 01/22/2017 Inactive venlafaxine ER 75 mg capsule,extended release 24 hr RxNorm: 292050 1 Capsule(s) PO daily 06/29/2016 06/21/2017 Inactive sodium bicarbonate 6 50 mg tablet RxNorm: 474630 TAKE 2 TABLETS BY JAVON TH TWICE DAILY 06/29/2016 12/23/2016 In active 06/27/2016 9:05:39 AM Coumadin 4 mg tablet RxNorm: 098296 1 Tablet(s) PO 3 x week e and sun 06/09/2016 06/08/2016 In active Coumadin 4 mg tablet RxNorm: 632523 1 Tablet(s) PO 3 x week e and sun 06/09/2016 07/26/2016 In active Zetia 10 mg tablet RxNorm: 807039 1 Tablet(s) PO daily 06/09/2016 06/08/2016 Inactive gave 1 month of samples Zetia 10 mg tablet RxNorm: 244905 1 Tablet(s) PO daily 06/09/2016 09/24/2016 Inactive gave 1 month of samples Effexor 75 mg tablet RxNorm: 740847 1 Tablet(s) PO daily 06/08/2016 06/28/2016 Inactive spironolactone 25 mg tablet RxNorm: 440808 1 Tablet(s) PO daily 06/08/2016 05/23/2017 Inactive Synthroid 137 mcg ta blet RxNorm: 527439 1 Tablet(s) PO daily 05/07/2016 11/02/2016 Inactive allopurinol 300 mg t ablet RxNorm: 237907 Tablet(s) TAKE 1 TABL ET BY MOUTH ONCE DAILY. 04/28/2016 10/24/2016 Inactive clonazepam 0.5 mg ta blet RxNorm: 455278 1 Tablet(s) PO BID 04/20/2016 09/15/2016 Inactive Flonase Allergy Reli ef 50 mcg/actuation nasal spray,suspension RxNorm: 3207269 1 [place] NASAL BID 04/02/2016 No Stop Date Active Zithromax Z-Thomas 250 mg tablet RxNorm: 762414 Tablet(s) PO 04/02/2016 08/27/2016 Inactive cetirizine 10 mg tablet RxNorm: 4112828 1 Tablet(s) PO daily 04/02/2016 05/01/2016 Inactive Carafate 1 gram tablet RxNorm: 582891 Tablet(s) TAKE 1 TABLET TWICE A DAY FOR 30 DAYS 03/30/2016 10/25/2016 Inactive Generic For:CARAFATE 1GM 02/08/2015 12:3 6:39 PM Plavix 75 mg tablet RxNorm: 171527 1 Tablet(s) PO daily 03/11/2016 09/06/2016 Inactive sodium bicarbonate 6 50 mg tablet RxNorm: 307058 Tablet(s) 2 Tablet(s) PO BID 02/28/2016 06/26/2016 In active omeprazole 20 mg cap sean,delayed release RxNorm: 407324 Capsule(s) PO TAKE 1 CAPSULE BY MOUTH ONCE DAILY 01/31/2016 07/26/2016 Inactive Fish Oil 1,000 mg ca psule RxNorm: 1 Capsule(s) PO BID 01/14/2016 No Stop Date Active Synthroid 137 mcg ta blet RxNorm: 115782 1 Tablet(s) PO daily 01/14/2016 05/06/2016 Inactive Detrol LA 4 mg capsu le,extended release RxNorm: 333462 TAKE 1 CAPSULE BY JAVON TH ONCE DAILY 12/30/2015 07/26/2016 Inactive Generic For:DETROL LA 4MG C AP 12/30/2015 9:11:01 AM potassium chloride 2 0 mEq/15 mL oral liquid RxNorm: 357384 Milliliter(s) 30 Milliliter(s) (40mEq) PO daily 12/02/2015 03/30/2016 Inactive sodium bicarbonate 6 50 mg tablet RxNorm: 265695 Tablet(s) 2 Tablet(s) PO BID 10/31/2015 02/27/2016 In active Lipitor 40 mg tablet RxNorm: 887785 1 Tablet(s) PO daily 10/09/2015 09/24/2016 Inactive sodium bicarbonate 6 50 mg tablet RxNorm: 100072 2 Tablet(s) PO BID 10/01/2015 10/30/2015 Inactive allopurinol 300 mg t ablet RxNorm: 748787 TAKE 1 TABLET BY MOUT H ONCE DAILY. 10/01/2015 04/27/2016 In active Generic For:ZYLOPRIM 300 MG TABLET 09/19 9:21:15 AM clonazepam 0.5 mg ta blet RxNorm: 096637 1 Tablet(s) PO BID 09/30/2015 04/19/2016 Inactive Coumadin 5 mg tablet RxNorm: 440928 1 Tablet(s) PO daily 09/27/2015 05/31/2017 Inactive Generic For:COUMADIN 5MG TAB N O T I C E PRESCRIPTION PREVIOUSLY AUTHORIZED BY DOCTOR:BOBBY ZULETA Synthroid 125 mcg ta blet RxNorm: 423538 1 Tablet(s) PO daily 09/27/2015 09/26/2015 Inactive Synthroid 125 mcg ta blet RxNorm: 311992 1 Tablet(s) PO daily 09/27/2015 01/13/2016 Inactive Carafate 1 gram tablet RxNorm: 619829 Tablet(s) TAKE 1 TABLET TWICE A DAY FOR 30 DAYS 09/02/2015 03/29/2016 Inactive Generic For:CARAFATE 1GM 02/08/2015 12:3 6:39 PM sodium bicarbonate 6 50 mg tablet RxNorm: 197890 2 Tablet(s) PO BID 09/02/2015 09/30/2015 Inactive Prilosec 20 mg capsu le,delayed release RxNorm: 392051 TAKE 1 CAPSULE BY JAVON TH ONCE DAILY 08/02/2015 01/28/2016 Inactive Generic For:PRILOSEC 20MG 08/02/2015 10:03:09 AM N O T I C E PRESCRIPTION PREVIOUSLY AUTHORIZED BY DOCTOR:BOBBY ZULETA Zyrtec 10 mg capsule RxNorm: 0242530 1 Capsule(s) PO daily 07/15/2015 08/13/2015 Inactive Keflex 500 mg capsule RxNorm: 545021 1 Capsule(s) PO TID 07/15/2015 07/21/2015 Inactive cetirizine 10 mg cap sean RxNorm: 8670870 1 Capsule(s) PO daily 07/15/2015 08/13/2015 Inactive hydrocodone 5 mg-humberto taminophen 325 mg tablet RxNorm: 214335 1-2 Tablet(s) PO Q6 P RN 06/10/2015 11/16/2016 In active sodium bicarbonate 6 50 mg tablet RxNorm: 182903 2 Tablet(s) PO BID 06/03/2015 08/31/2015 Inactive Detrol LA 4 mg capsu le,extended release RxNorm: 605870 TAKE 1 CAPSULE BY JAVON TH ONCE DAILY 06/03/2015 12/29/2015 Inactive Generic For:DETROL LA 4MG C AP N O T I C E PRESCRIPTION PREVIOUSLY AUTHORIZED BY DOCTOR:BOBBY ZULETA atenolol 50 mg tablet RxNorm: 401517 1 Tablet(s) PO daily TAKE 1 TABLET BY MO UTH DAILY 05/07/2015 08/23/2017 Inactive Generic For:TENORMIN 50MG 05/04/2015 9:07:22 AM spironolactone 25 mg tablet RxNorm: 045122 1 Tablet(s) PO daily 05/06/2015 06/07/2016 Inactive venlafaxine ER 75 mg capsule,extended release 24 hr RxNorm: 562222 1 Capsule(s) PO daily 05/04/2015 06/28/2016 Inactive atenolol 50 mg tablet RxNorm: 253311 TAKE 1 TABLET BY MOUTH DAILY 05/04/2015 05/06/2015 Inactive Generic For:TENORMIN 50MG 05/04/2015 9: 07:22 AM Synthroid 150 mcg ta blet RxNorm: 150306 TAKE 1 TABLET BY MOUT H ONCE DAILY. 04/05/2015 09/26/2015 In active Generic For:SYNTHROID 150MCG TAB 2014 4:45:40 PM N O T I C E PRESCRIPTION PREVIOUSLY AUTHORIZED BY DOCTOR:BOBBY ZULETA Effexor 75 mg tablet RxNorm: 674562 1 Tablet(s) PO daily 04/05/2015 07/03/2015 Inactive Coumadin 5 mg tablet RxNorm: 199692 TAKE 1 AND 1/2 TABLETS BY MOUTH ONCE MYRANDA LY 04/04/2015 09/26/2015 In active Generic For:COUMADIN 5MG TAB N O T I C E PRESCRIPTION PREVIOUSLY AUTHORIZED BY DOCTOR:BOBBY ZULETA clonazepam 0.5 mg ta blet RxNorm: 447306 1 Tablet(s) PO BID 03/13/2015 11/05/2015 Inactive sodium bicarbonate 6 50 mg tablet RxNorm: 751072 2 Tablet(s) PO BID 03/08/2015 06/02/2015 Inactive allopurinol 300 mg t ablet RxNorm: 056980 TAKE 1 TABLET BY MOUT H ONCE DAILY. 03/05/2015 09/30/2015 In active N O T I C E PRESCRIPTION PREVIOUSLY A UTHORIZED BY DOCTOR:BOBBY ZULETA Plavix 75 mg tablet RxNorm: 541465 1 Tablet(s) PO daily 02/12/2015 09/09/2015 Inactive clonazepam 0.5 mg ta blet RxNorm: 568018 1 Tablet(s) PO BID 02/11/2015 03/11/2015 Inactive Carafate 1 gram tablet RxNorm: 428812 TAKE 1 TABLET TWICE A DAY FOR 30 DAYS 02/08/2015 02/07/2015 In active Generic For:CARAFATE 1GM 02/08/2015 12:3 6:39 PM Carafate 1 gram tablet RxNorm: 208916 Tablet(s) TAKE 1 TABLET TWICE A DAY FOR 30 DAYS 02/08/2015 09/01/2015 Inactive Generic For:CARAFATE 1GM 02/08/2015 12:3 6:39 PM potassium chloride 2 0 mEq/15 mL oral liquid RxNorm: 355036 30 Milliliter(s) (40m Eq) PO daily 02/05/2015 12/01/2015 Inactive atenolol 50 mg tablet RxNorm: 261101 1 Tablet(s) PO daily 02/04/2015 05/03/2015 Inactive [SAVINGS FOR NON-COVERED DRUGS -- BIN:00 3585, PCN: [id number], Group: XXXXX, ID# XXXXXXX, Questions: . THIS IS NOT INSURANCE.] potassium chloride 2 0 mEq/15 mL oral liquid RxNorm: 477120 30 Milliliter(s) (40m Eq) PO daily 01/08/2015 02/04/2015 Inactive potassium chloride 2 0 mEq/15 mL oral liquid RxNorm: 812302 30 Milliliter(s) (40m Eq) PO daily 12/07/2014 01/07/2015 Inactive atenolol 50 mg tablet RxNorm: 393145 1 Tablet(s) PO daily 11/09/2014 11/08/2014 Inactive atenolol 50 mg tablet RxNorm: 328263 1 Tablet(s) PO daily 11/09/2014 02/03/2015 Inactive [SAVINGS FOR NON-COVERED DRUGS -- BIN:00 8805, PCN: ASPROD1, Group: XXXXX, ID# [id number], Questions: . THIS IS NOT INSURANCE.] Voltaren 1 % topical gel RxNorm: 011538 TOP No St art Date Active verapamil ER (HS) 24 0 mg tablet,extended release 24 hr RxNorm: 301899 1 Tablet(s) PO daily No Start Date Active aspirin 81 mg tablet RxNorm: 226584 1 Tablet(s) PO daily No Start Date Active Zofran 4 mg tablet RxNorm: 548355 1 Tablet(s) PO PRN No Start Date Active B12 1000 mcg RxNorm: 1 Tablet(s) PO daily No Start Date Active magnesium oxide 400 mg capsule RxNorm: 976258 2 Capsule(s) PO BID No Start Date Active Synthroid 150 mcg ta blet RxNorm: 735071 1 Tablet(s) PO daily No Start Date 04/04/2015 Inactive Coumadin 5 mg tablet RxNorm: 818604 1 Tablet(s) PO daily No Start Date 04/03/2015 Inactive cranberry 1,000 mg c apsule RxNorm: 711932 1 Capsule(s) PO daily No Start Date 04/13/2018 Inactive allopurinol 300 mg t ablet RxNorm: 692972 1 Tablet(s) PO daily No Start Date 03/04/2015 Inactive Prilosec 20 mg capsu le,delayed release RxNorm: 968037 1 Capsule(s) PO PRN No Start Date 08/01/2015 Inactive potassium chloride 2 0 mEq/15 mL oral liquid RxNorm: 347394 30 Milliliter(s) (40m Eq) PO daily No Start Date 12/06/2014 Inactive atenolol 50 mg tablet RxNorm: 674934 1 Tablet(s) PO daily No Start Date 08/29/2017 Inactive Lipitor 40 mg tablet RxNorm: 925112 1 Tablet(s) PO daily No Start Date 09/19/2017 Inactive Effexor 75 mg tablet RxNorm: 085934 1 Tablet(s) PO daily No Start Date 04/04/2015 Inactive Carafate 1 gram tablet RxNorm: 616835 1 Tablet(s) PO BID No Start Date 02/07/2015 Inactive clonazepam 0.5 mg ta blet RxNorm: 894391 1 Tablet(s) PO BID No Start Date 02/10/2015 Inactive Plavix 75 mg tablet RxNorm: 114720 1 Tablet(s) PO daily No Start Date 02/11/2015 Inactive sodium bicarbonate 6 50 mg tablet RxNorm: 749158 2 Tablet(s) PO BID No Start Date 09/01/2015 Inactive Lovenox 30 mg/0.3 mL subcutaneous syringe RxNorm: 032146 0.3 Milliliter(s) SQ Q12H No Start Date 03/15/2017 Inactive Fish Oil 1,000 mg ca psule RxNorm: 1 Capsule(s) PO daily No Start Date 01/13/2016 Inactive Detrol LA 4 mg capsu le,extended release RxNorm: 293302 1 Capsule(s) PO daily No Start Date 06/02/2015 Inactive Medication Administered No Medication Administered data Immunizations Vaccine Codes Date Status SHINGARIX CVX: 121 03/23 completed Assessments Condition Codes Effectiv e Dates Hypothyroidism, unspecified ICD-10: E03.9 ICD-9: 244.9 04/14/2018 Essential (primary) hypertension ICD -10: I10 ICD-9: 401.9 04/14/2018 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0-3.0 07/08/2018 Pt Qnq1535 Hi intensity - 3.0-4.0 07/08/2018 Pt Oqh5771 PT 19.2 seconds 07/01/2018 Pt Xlp7715 INR 1.7 07/01/2018 Pt Ckk6257 Low Intensity - 1.5-2.0 07/01/2018 Pt Tbc8091 Mod intensity - 2.0-3.0 07/01/2018 Pt Dpr1849 Hi intensity - 3.0-4.0 07/01/2018 Pt Lqz0185 PT 17.4 seconds 06/23/2018 Pt Kfw5327 INR 1.5 06/23/2018 Pt Lqh0277 Low Intensity - 1.5-2.0 06/23/2018 Pt Vmz9564 Mod intensity - 2.0-3.0 06/23/2018 Pt Pyn9908 Hi intensity - 3.0-4.0 06/23/2018 Pt Fof2560 PT 18.4 seconds 06/17/2018 Pt Dcv8588 INR 1.6 06/17/2018 Pt Hsx4466 Low Intensity - 1.5-2.0 06/17/2018 Pt Mzg5690 Mod intensity - 2.0-3.0 06/17/2018 Pt Yjd5094 Hi intensity - 3.0-4.0 06/17/2018 Sed Rate [...] 30.4 pg 06/08/2018 Cbc With Differential Ord2 Larue% 9.4 % 06/08/2018 Cbc With Differential Ord2 [...] 1.20 K/ul 06/08/2018 Cbc With Differential Ord2 Larue ABS# 0.5 K/ul 06/08/2018 Cbc With Differential Ord2 Eos ABS# 0.1 K/ul 06/08/2018 Cbc With Differential Ord2 Baso ABS# 0.1 K/ul 06/08/2018 C-Reactive Protein Qnt Crqnt CRP 0.1 mg/dl 06/08/2018 Pt Vpu9008 PT 17.6 seconds 06/08/2018 Pt Ybt4328 INR 1.5 06/08/2018 Pt Zun8366 Low Intensity - 1.5-2.0 06/08/2018 Pt Tmz8041 Mod intensity - 2.0-3.0 06/08/2018 Pt Iaf5304 Hi intensity - 3.0-4.0 06/08/2018 Pt Dzc1809 PT 16.8 seconds 05/10/2018 Pt Jsy7355 INR 1.4 05/10/2018 Pt Djr1068 Low Intensity - 1.5-2.0 05/10/2018 Pt Jwk9006 Mod intensity - 2.0-3.0 05/10/2018 Pt Gzz6964 Hi intensity - 3.0-4.0 05/10/2018 Pt Kzy3673 PT 16.7 seconds 05/04/2018 Pt Mer5925 INR 1.4 05/04/2018 Pt Qaa6353 Low Intensity - 1.5-2.0 05/04/2018 Pt Rfx6724 Mod intensity - 2.0-3.0 05/04/2018 Pt Wxm1218 Hi intensity - 3.0-4.0 05/04/2018 Free T4 Ngr404 FREE T4 1.09 ng/dL 04/14/2018 Tsh Ord6 TSH (3rd IS) 2.36 uIU/mL 04/14/2018 Pt Lgn8792 PT 20.3 seconds 04/14/2018 Pt Cyw8283 INR 1.8 04/14/2018 Pt Fpz6576 Low Intensity - 1.5-2.0 04/14/2018 Pt Zpw4679 Mod intensity - 2.0-3.0 04/14/2018 Pt Hfe5506 Hi intensity - 3.0-4.0 04/14/2018 Lipid Ord30 CHOL 149 mg/dL 04/14/2018 Lipid Ord30 HDL 49.0 mg/dl 04/14/2018 Lipid Ord30 TRIG 161 mg/dL 04/14/2018 Lipid Ord30 LDL 68 mg/dL 04/14/2018 Lipid Ord30 C/HDL 3.0 Ratio 04/14/2018 %Hba1C Pui275 % HbA1c 88691-3 5.9 % 04/14/2018 %Hba1C Rfe711 Gluc Ave 123 mg/dL 04/14/2018 Comp Metabolic Uaw790 NA 140 mEq/L 04/14/2018 Comp Metabolic Wst511 K 4.1 mEq/L 04/14/2018 Comp Metabolic Ddn028 CL 105 mEq/L 04/14/2018 Comp Metabolic Rpe002 CO2 28.0 mEq/L 04/14/2018 Comp Metabolic Fjn576 AN ION GAP 11 04/14/2018 Comp Metabolic Twu823 GL UCOSE 112 mg/dL 04/14/2018 Comp Metabolic Xqe181 Cr eat 1.0 mg/dL 04/14/2018 Comp Metabolic Dyo910 eG FR 58 ml/min/1.73m2 04/14 Comp Metabolic Smc177 BUN 20 mg/dL 04/14/2018 Comp Metabolic Ysh818 B/ C Ratio 20.2 Ratio 04/14/2018 Comp Metabolic Ucs294 CA LCIUM 10.0 mg/dL 04/14/2018 Comp Metabolic Xsm672 AL K PHOS 51 U/L 04/14/2018 Comp Metabolic Rja681 T(SGOT) 24 U/L 04/14/2018 Comp Metabolic Glz919 AL T(SGPT) 21 U/L 04/14/2018 Comp Metabolic Mzn462 BI LI T 0.8 mg/dL 04/14/2018 Comp Metabolic Eax377 AL BUMIN 4.2 g/dL 04/14/2018 Comp Metabolic Awb140 TP RO 7.1 g/dL 04/14/2018 Comp Metabolic Zcs712 GL OB 2.9 g/dL 04/14/2018 Comp Metabolic Pmu256 A/ G Ratio 1.5 Ratio 04/14/2018 Comp Metabolic Gpm917 Os mo 283 mOsmo 04/14/2018 Cbc With [...] 30.7 pg 04/14/2018 Cbc With Differential Ord2 Larue% 10.6 % 04/14/2018 Cbc With Differential Ord2 [...] 1.18 K/ul 04/14/2018 Cbc With Differential Ord2 Larue ABS# 0.5 K/ul 04/14/2018 Cbc With Differential Ord2 Eos ABS# 0.2 K/ul 04/14/2018 Cbc With Differential Ord2 Baso ABS# 0.1 K/ul 04/14/2018 Pt Kai7434 PT 29.3 seconds 02/11/2018 Pt Xng9161 INR 2.8 02/11/2018 Pt Mwm7477 Low Intensity - 1.5-2.0 02/11/2018 Pt Ytd9083 Mod intensity - 2.0-3.0 02/11/2018 Pt Yui8901 Hi intensity - 3.0-4.0 02/11/2018 Comp Metabolic Vug964 NA 141 mEq/L 01/05/2018 Comp Metabolic Ech246 K 3.7 mEq/L 01/05/2018 Comp Metabolic Ssz117 CL 102 mEq/L 01/05/2018 Comp Metabolic Brf893 CO2 29.0 mEq/L 01/05/2018 Comp Metabolic Wxf635 AN ION GAP 14 01/05/2018 Comp Metabolic Exe950 GL UCOSE 136 mg/dL 01/05/2018 Comp Metabolic Chq588 Cr eat 1.0 mg/dL 01/05/2018 Comp Metabolic Pds464 eG FR 61 ml/min/1.73m2 01/05 Comp Metabolic Yho648 BUN 22 mg/dL 01/05/2018 Comp Metabolic Zfy253 B/ C Ratio 22.9 Ratio 01/05/2018 Comp Metabolic Jks647 CA LCIUM 9.7 mg/dL 01/05/2018 Comp Metabolic Mep615 AL K PHOS 57 U/L 01/05/2018 Comp Metabolic Fvj418 T(SGOT) 21 U/L 01/05/2018 Comp Metabolic Zhl954 AL T(SGPT) 19 U/L 01/05/2018 Comp Metabolic Ryr945 BI LI T 0.9 mg/dL 01/05/2018 Comp Metabolic Ybf933 AL BUMIN 4.1 g/dL 01/05/2018 Comp Metabolic Bdk032 TP RO 7.1 g/dL 01/05/2018 Comp Metabolic Muj252 GL OB 3.0 g/dL 01/05/2018 Comp Metabolic Iny654 A/ G Ratio 1.4 Ratio 01/05/2018 Comp Metabolic Ssm832 Os mo 287 mOsmo 01/05/2018 Free T4 Lhu926 FREE T4 1.05 ng/dL 01/05/2018 %Hba1C Owo176 % HbA1c 29003-6 6.0 % 01/05/2018 %Hba1C Qyb441 Gluc Ave 126 mg/dL 01/05/2018 Cbc With [...] 27.3 % 01/05/2018 Cbc With Differential Ord2 Larue% 10.5 % 01/05/2018 Cbc With Differential Ord2 [...] 1.27 K/ul 01/05/2018 Cbc With Differential Ord2 Larue ABS# 0.5 K/ul 01/05/2018 Cbc With Differential Ord2 Eos ABS# 0.2 K/ul 01/05/2018 Cbc With Differential Ord2 Baso ABS# 0.1 K/ul 01/05/2018 Pt Gzq3248 PT 20.7 seconds 01/05/2018 Pt Ogk1182 INR 1.8 01/05/2018 Pt Gya0537 Low Intensity - 1.5-2.0 01/05/2018 Pt Apo8610 Mod intensity - 2.0-3.0 01/05/2018 Pt Htk4534 Hi intensity - 3.0-4.0 01/05/2018 Tsh Ord6 TSH (3rd IS) 2.34 uIU/mL 01/05/2018 Lipid Ord30 CHOL 156 mg/dL 01/05/2018 Lipid Ord30 HDL 48.0 mg/dl 01/05/2018 Lipid Ord30 TRIG 207 mg/dL 01/05/2018 Lipid Ord30 LDL 67 mg/dL 01/05/2018 Lipid Ord30 C/HDL 3.3 Ratio 01/05/2018 Pt Qfm5028 PT 28.3 seconds 11/26/2017 Pt Jwn0355 INR 2.6 11/26/2017 Pt Czz9946 Low Intensity - 1.5-2.0 11/26/2017 Pt Ggc9094 Mod intensity - 2.0-3.0 11/26/2017 Pt Nmu8028 Hi intensity - 3.0-4.0 11/26/2017 Pt Axj8352 PT 36.5 seconds 11/19/2017 Pt Rve1040 INR 3.6 11/19/2017 Pt Hqo1482 Low Intensity - 1.5-2.0 11/19/2017 Pt Irh5488 Mod intensity - 2.0-3.0 11/19/2017 Pt Qfm3149 Hi intensity - 3.0-4.0 11/19/2017 Pt Wdf6402 PT 22.9 seconds 10/15/2017 Pt Sjp3614 INR 2.0 10/15/2017 Pt Zjf2960 Low Intensity - 1.5-2.0 10/15/2017 Pt Guk8674 Mod intensity - 2.0-3.0 10/15/2017 Pt Kbj4625 Hi intensity - 3.0-4.0 10/15/2017 Pt Lss2066 PT 25.9 seconds 10/01/2017 Pt Gsd4945 INR 2.4 10/01/2017 Pt Gtv8400 Low Intensity - 1.5-2.0 10/01/2017 Pt Fla8818 Mod intensity - 2.0-3.0 10/01/2017 Pt Son2643 Hi intensity - 3.0-4.0 10/01/2017 Pt Uje0884 PT 20.6 seconds 09/24/2017 Pt Atf8649 INR 1.8 09/24/2017 Pt Vfi6258 Low Intensity - 1.5-2.0 09/24/2017 Pt Dxb6978 Mod intensity - 2.0-3.0 09/24/2017 Pt Shv4829 Hi intensity - 3.0-4.0 09/24/2017 Pt Urh0000 PT 21.0 seconds 09/15/2017 Pt Tjl8478 INR 1.8 09/15/2017 Pt Zix3306 Low Intensity - 1.5-2.0 09/15/2017 Pt Kqk4443 Mod intensity - 2.0-3.0 09/15/2017 Pt Cob7934 Hi intensity - 3.0-4.0 09/15/2017 Pt Scf8349 PT 19.0 seconds 09/03/2017 Pt Ziu8352 INR 1.6 09/03/2017 Pt Spi9591 Low Intensity - 1.5-2.0 09/03/2017 Pt Wkc9312 Mod intensity - 2.0-3.0 09/03/2017 Pt Ebw1865 Hi intensity - 3.0-4.0 09/03/2017 Pt Nxk6684 PT 17.6 seconds 08/23/2017 Pt Ham3493 INR 1.5 08/23/2017 Pt Bjj8335 Low Intensity - 1.5-2.0 08/23/2017 Pt Wnz1881 Mod intensity - 2.0-3.0 08/23/2017 Pt Epg0800 Hi intensity - 3.0-4.0 08/23/2017 Pt Dsj6199 PT 12.7 seconds 08/20/2017 Pt Ket6352 INR 1.0 08/20/2017 Pt Yif9855 Low Intensity - 1.5-2.0 08/20/2017 Pt Mls2928 Mod intensity - 2.0-3.0 08/20/2017 Pt Xnx9186 Hi intensity - 3.0-4.0 08/20/2017 Pt Uva4635 PT 12.9 seconds 08/17/2017 Pt Trn2729 INR 1.0 08/17/2017 Pt Bgv4758 Low Intensity - 1.5-2.0 08/17/2017 Pt Lef1576 Mod intensity - 2.0-3.0 08/17/2017 Pt Yrw5773 Hi intensity - 3.0-4.0 08/17/2017 Pt Rwq2038 PT 18.5 seconds 08/10/2017 Pt Xrx2749 INR 1.6 08/10/2017 Pt Ewg8996 Low Intensity - 1.5-2.0 08/10/2017 Pt Vxt6927 Mod intensity - 2.0-3.0 08/10/2017 Pt Rsc2878 Hi intensity - 3.0-4.0 08/10/2017 Tsh Ord6 [...] 14.7 % 05/27/2017 Cbc With Differential Ord2 Larue% 8.1 % 05/27/2017 Cbc With Differential Ord2 [...] 1.11 K/ul 05/27/2017 Cbc With Differential Ord2 Larue ABS# 0.6 K/ul 05/27/2017 Cbc With Differential Ord2 Eos ABS# 0.2 K/ul 05/27/2017 Cbc With Differential Ord2 Baso ABS# 0.1 K/ul 05/27/2017 Pt Dsg4342 PT 28.2 seconds 05/27/2017 Pt Tnc7321 INR 2.6 05/27/2017 Pt Blj6177 Low Intensity - 1.5-2.0 05/27/2017 Pt Glu6993 Mod intensity - 2.0-3.0 05/27/2017 Pt Hgy5634 Hi intensity - 3.0-4.0 05/27/2017 Lipid Ord30 CHOL 167 mg/dL 05/27/2017 Lipid Ord30 HDL 49.0 mg/dl 05/27/2017 Lipid Ord30 TRIG 347 mg/dL 05/27/2017 Lipid Ord30 LDL 49 mg/dL 05/27/2017 Lipid Ord30 C/HDL 3.4 Ratio 05/27/2017 Magnesium Ord90 Mag 1.4 mg/dL 05/27/2017 %Hba1C Xlf135 % HbA1c 70753-6 5.9 % 05/27/2017 %Hba1C Nar298 Gluc Ave 123 mg/dL 05/27/2017 Comp Metabolic Ndt930 NA 138 mEq/L 05/27/2017 Comp Metabolic Obi740 K 4.1 mEq/L 05/27/2017 Comp Metabolic Oet720 CL 101 mEq/L 05/27/2017 Comp Metabolic Ppr005 CO2 31.0 mEq/L 05/27/2017 Comp Metabolic Afv935 AN ION GAP 10 05/27/2017 Comp Metabolic Jav376 GL UCOSE 117 mg/dL 05/27/2017 Comp Metabolic Qyj303 Cr eat 0.9 mg/dL 05/27/2017 Comp Metabolic Bvl332 eG FR 62 ml/min/1.73m2 05/27 Comp Metabolic Dro123 BUN 25 mg/dL 05/27/2017 Comp Metabolic Eyv292 B/ C Ratio 26.6 Ratio 05/27/2017 Comp Metabolic Emm768 CA LCIUM 9.5 mg/dL 05/27/2017 Comp Metabolic Mgs189 AL K PHOS 73 U/L 05/27/2017 Comp Metabolic Yhi773 T(SGOT) 18 U/L 05/27/2017 Comp Metabolic Wyg364 AL T(SGPT) 12 U/L 05/27/2017 Comp Metabolic Rwf310 BI LI T 0.5 mg/dL 05/27/2017 Comp Metabolic Jym291 AL BUMIN 4.1 g/dL 05/27/2017 Comp Metabolic Sqs546 TP RO 7.1 g/dL 05/27/2017 Comp Metabolic Jkc852 GL OB 3.0 g/dL 05/27/2017 Comp Metabolic Anx790 A/ G Ratio 1.3 Ratio 05/27/2017 Comp Metabolic Bfm098 Os mo 281 mOsmo 05/27/2017 Free T4 Ots396 FREE T4 0.91 ng/dL 05/27/2017 Pt Riw1709 PT 29.2 seconds 04/16/2017 Pt Zni8753 INR 2.7 04/16/2017 Pt Xbg2571 Low Intensity - 1.5-2.0 04/16/2017 Pt Hik6332 Mod intensity - 2.0-3.0 04/16/2017 Pt Btt4983 Hi intensity - 3.0-4.0 04/16/2017 Pt Ary3663 PT 30.7 seconds 03/31/2017 Pt Bbo1446 INR 2.9 03/31/2017 Pt Ewz8314 Low Intensity - 1.5-2.0 03/31/2017 Pt Xrx9039 Mod intensity - 2.0-3.0 03/31/2017 Pt Jkr1005 Hi intensity - 3.0-4.0 03/31/2017 Pt Fcc4603 PT 21.3 seconds 03/26/2017 Pt Uxu7995 INR 1.9 03/26/2017 Pt Eck7753 Low Intensity - 1.5-2.0 03/26/2017 Pt Ras1409 Mod intensity - 2.0-3.0 03/26/2017 Pt Oum9812 Hi intensity - 3.0-4.0 03/26/2017 Pt Era4833 PT 19.8 seconds 03/22/2017 Pt Cwl4763 INR 1.7 03/22/2017 Pt Jcq2280 Low Intensity - 1.5-2.0 03/22/2017 Pt Qlg0933 Mod intensity - 2.0-3.0 03/22/2017 Pt Lwm1086 Hi intensity - 3.0-4.0 03/22/2017 Pt Oms0391 PT 15.6 seconds 03/19/2017 Pt Xpm4819 INR 1.3 03/19/2017 Pt Jeb0494 Low Intensity - 1.5-2.0 03/19/2017 Pt Znp7299 Mod intensity - 2.0-3.0 03/19/2017 Pt Cqm7844 Hi intensity - 3.0-4.0 03/19/2017 Pt Ubp5264 PT 13.7 seconds 03/15/2017 Pt Wea6633 INR 1.1 03/15/2017 Pt Amr3692 Low Intensity - 1.5-2.0 03/15/2017 Pt Dhn4638 Mod intensity - 2.0-3.0 03/15/2017 Pt Bpq3987 Hi intensity - 3.0-4.0 03/15/2017 Pt Php3229 PT 25.8 seconds 01/28/2017 Pt Ksd8477 INR 2.4 01/28/2017 Pt Ykt5393 Low Intensity - 1.5-2.0 01/28/2017 Pt Bxx1724 Mod intensity - 2.0-3.0 01/28/2017 Pt Wff8087 Hi intensity - 3.0-4.0 01/28/2017 %Hba1C Jwi348 % HbA1c 81368-2 6.4 % 10/23/2016 %Hba1C Myo099 Gluc Ave 137 mg/dL 10/23/2016 Comp Metabolic Tsa708 NA 138 mEq/L 10/23/2016 Comp Metabolic Rwp543 K 3.4 mEq/L 10/23/2016 Comp Metabolic Qjh913 CL 100 mEq/L 10/23/2016 Comp Metabolic Wlb035 CO2 30.0 mEq/L 10/23/2016 Comp Metabolic Raf299 AN ION GAP 11 10/23/2016 Comp Metabolic Kae623 GL UCOSE 139 mg/dL 10/23/2016 Comp Metabolic Yio878 Cr eat 0.9 mg/dL 10/23/2016 Comp Metabolic Pmq927 eG FR 62 ml/min/1.73m2 10/23 Comp Metabolic Aph860 BUN 22 mg/dL 10/23/2016 Comp Metabolic Rvx803 B/ C Ratio 23.4 Ratio 10/23/2016 Comp Metabolic Nmc054 CA LCIUM 8.7 mg/dL 10/23/2016 Comp Metabolic Hpw238 AL K PHOS 66 U/L 10/23/2016 Comp Metabolic Hio797 T(SGOT) 20 U/L 10/23/2016 Comp Metabolic Cdc630 AL T(SGPT) 10 U/L 10/23/2016 Comp Metabolic Ycr343 BI LI T 0.5 mg/dL 10/23/2016 Comp Metabolic Rqo244 AL BUMIN 3.5 g/dL 10/23/2016 Comp Metabolic Eer969 TP RO 6.3 g/dL 10/23/2016 Comp Metabolic Klf427 GL OB 2.8 g/dL 10/23/2016 Comp Metabolic Wul088 A/ G Ratio 1.3 Ratio 10/23/2016 Comp Metabolic Pqx644 Os mo 281 mOsmo 10/23/2016 Pt Dpo7120 PT 26.8 seconds 10/23/2016 Pt Zrg6012 INR 2.7 10/23/2016 Pt Ocf2918 Low Intensity - 1.5-2.0 10/23/2016 Pt Pbt8121 Mod intensity - 2.0-3.0 10/23/2016 Pt Ase6945 Hi intensity - 3.0-4.0 10/23/2016 Pt Vjv6036 PT 28.3 seconds 09/25/2016 Pt Uvm3867 INR 2.8 09/25/2016 Pt Quz6365 Low Intensity - 1.5-2.0 09/25/2016 Pt Ykq8292 Mod intensity - 2.0-3.0 09/25/2016 Pt Zlw9369 Hi intensity - 3.0-4.0 09/25/2016 Metabolic Ord15 [...] Metabolic Ord15 CALCIUM 8.8 mg/dL 09/25/2016 Pt Ijq3635 PT 30.6 seconds 09/11/2016 Pt Zry1471 INR 3.2 09/11/2016 Pt Cwz1279 Low Intensity - 1.5-2.0 09/11/2016 Pt Gqp3468 Mod intensity - 2.0-3.0 09/11/2016 Pt Hrg3053 Hi intensity - 3.0-4.0 09/11/2016 Comp Metabolic Eqb657 NA 138 mEq/L 09/11/2016 Comp Metabolic Gtx851 K 4.4 mEq/L 09/11/2016 Comp Metabolic Mjb292 CL 103 mEq/L 09/11/2016 Comp Metabolic Dia280 CO2 31.0 mEq/L 09/11/2016 Comp Metabolic Yob600 AN ION GAP 8 09/11/2016 Comp Metabolic Eut407 GL UCOSE 146 mg/dL 09/11/2016 Comp Metabolic Bve719 Cr eat 1.0 mg/dL 09/11/2016 Comp Metabolic Lft108 eG FR 60 ml/min/1.73m2 09/11 Comp Metabolic Zru606 BUN 16 mg/dL 09/11/2016 Comp Metabolic Yhp194 B/ C Ratio 16.5 Ratio 09/11/2016 Comp Metabolic Wjv644 CA LCIUM 8.7 mg/dL 09/11/2016 Comp Metabolic Mex485 AL K PHOS 52 U/L 09/11/2016 Comp Metabolic Zzi862 T(SGOT) 19 U/L 09/11/2016 Comp Metabolic Ptr110 AL T(SGPT) 11 U/L 09/11/2016 Comp Metabolic Bkx686 BI LI T 0.7 mg/dL 09/11/2016 Comp Metabolic Uwn180 AL BUMIN 3.3 g/dL 09/11/2016 Comp Metabolic Zdo684 TP RO 5.8 g/dL 09/11/2016 Comp Metabolic Vvh228 GL OB 2.5 g/dL 09/11/2016 Comp Metabolic Gov158 A/ G Ratio 1.3 Ratio 09/11/2016 Comp Metabolic Uje639 Os mo 280 mOsmo 09/11/2016 C-Reactive Protein Qnt Crqnt CRP 0.1 mg/dl 08/21/2016 Comp Metabolic Hug119 NA 139 mEq/L 08/21/2016 Comp Metabolic Qdj510 K 4.1 mEq/L 08/21/2016 Comp Metabolic Oam931 CL 102 mEq/L 08/21/2016 Comp Metabolic Sli915 CO2 30.0 mEq/L 08/21/2016 Comp Metabolic Pow868 AN ION GAP 11 08/21/2016 Comp Metabolic Efq780 GL UCOSE 148 mg/dL 08/21/2016 Comp Metabolic Xto582 Cr eat 1.0 mg/dL 08/21/2016 Comp Metabolic Cit100 eG FR 55 ml/min/1.73m2 08/21 Comp Metabolic Utv857 BUN 21 mg/dL 08/21/2016 Comp Metabolic Uxp195 B/ C Ratio 20.2 Ratio 08/21/2016 Comp Metabolic Lbb310 CA LCIUM 9.4 mg/dL 08/21/2016 Comp Metabolic Yrd892 AL K PHOS 63 U/L 08/21/2016 Comp Metabolic Rik027 T(SGOT) 23 U/L 08/21/2016 Comp Metabolic Uov265 AL T(SGPT) 16 U/L 08/21/2016 Comp Metabolic Ecr668 BI LI T 0.6 mg/dL 08/21/2016 Comp Metabolic Kle506 AL BUMIN 3.9 g/dL 08/21/2016 Comp Metabolic Zrh916 TP RO 6.8 g/dL 08/21/2016 Comp Metabolic Gfw933 GL OB 2.9 g/dL 08/21/2016 Comp Metabolic Ect058 A/ G Ratio 1.4 Ratio 08/21/2016 Comp Metabolic Odm455 Os mo 283 mOsmo 08/21/2016 Sed Rate Ord21 ESR 16 mm/hr 08/21/2016 Pt Bmt6034 PT 27.2 seconds 08/21/2016 Pt Rmt3203 INR 2.7 08/21/2016 Pt Boy2850 Low Intensity - 1.5-2.0 08/21/2016 Pt Jfu4078 Mod intensity - 2.0-3.0 08/21/2016 Pt Ffw3738 Hi intensity - 3.0-4.0 08/21/2016 Magnesium Ord90 Mag 1.9 mg/dL 08/21/2016 Pt Qvf8934 PT 25.9 seconds 06/17/2016 Pt Yls6171 INR 2.5 06/17/2016 Pt Syb2850 Low Intensity - 1.5-2.0 06/17/2016 Pt Wpa6434 Mod intensity - 2.0-3.0 06/17/2016 Pt Eqt0360 Hi intensity - 3.0-4.0 06/17/2016 Tsh Ord6 hTSH II 2.13 uIU/mL 06/08/2016 Free T4 Jye823 FREE T4 0.79 ng/dL 06/08/2016 Cbc With [...] 80.8 fl 06/08/2016 Cbc With Differential Ord2 Larue% 12.0 % 06/08/2016 Cbc With Differential Ord2 [...] 1.40 K/ul 06/08/2016 Cbc With Differential Ord2 Larue ABS# 0.7 K/ul 06/08/2016 Cbc With Differential Ord2 Eos ABS# 0.3 K/ul 06/08/2016 Cbc With Differential Ord2 Baso ABS# 0.1 K/ul 06/08/2016 %Hba1C Poi555 % HbA1c 54076-7 6.2 % 06/08/2016 %Hba1C Jfh665 Gluc Ave 131 mg/dL 06/08/2016 Comp Metabolic Xue701 NA 138 mEq/L 06/08/2016 Comp Metabolic Viu878 K 3.9 mEq/L 06/08/2016 Comp Metabolic Aie066 CL 105 mEq/L 06/08/2016 Comp Metabolic Uis374 CO2 27.0 mEq/L 06/08/2016 Comp Metabolic Fzt724 AN ION GAP 10 06/08/2016 Comp Metabolic Asy312 GL UCOSE 127 mg/dL 06/08/2016 Comp Metabolic Ovd135 Cr eat 1.0 mg/dL 06/08/2016 Comp Metabolic Rho660 eG FR 59 ml/min/1.73m2 06/08 Comp Metabolic Vdj193 BUN 19 mg/dL 06/08/2016 Comp Metabolic Gfv408 B/ C Ratio 19.4 Ratio 06/08/2016 Comp Metabolic Ewr287 CA LCIUM 9.2 mg/dL 06/08/2016 Comp Metabolic Oeq386 AL K PHOS 77 U/L 06/08/2016 Comp Metabolic Jww917 T(SGOT) 19 U/L 06/08/2016 Comp Metabolic Xyo066 AL T(SGPT) 13 U/L 06/08/2016 Comp Metabolic Fmn756 BI LI T 0.5 mg/dL 06/08/2016 Comp Metabolic Cyk318 AL BUMIN 3.8 g/dL 06/08/2016 Comp Metabolic Chn260 TP RO 6.6 g/dL 06/08/2016 Comp Metabolic Mcf481 GL OB 2.8 g/dL 06/08/2016 Comp Metabolic Bwz177 A/ G Ratio 1.4 Ratio 06/08/2016 Comp Metabolic Igv102 Os mo 280 mOsmo 06/08/2016 Pt Bun7945 PT 36.1 seconds 06/08/2016 Pt Xyv9778 INR 3.9 06/08/2016 Pt Jcx0461 Low Intensity - 1.5-2.0 06/08/2016 Pt Cde5986 Mod intensity - 2.0-3.0 06/08/2016 Pt Hqg7796 Hi intensity - 3.0-4.0 06/08/2016 Lipid Ord30 CHOL 149 mg/dL 06/08/2016 Lipid Ord30 HDL 46.0 mg/dl 06/08/2016 Lipid Ord30 TRIG 279 mg/dL 06/08/2016 Lipid Ord30 LDL 47 mg/dL 06/08/2016 Lipid Ord30 C/HDL 3.2 Ratio 06/08/2016 Pt Cmk1267 PT 30.9 seconds 02/12/2016 Pt Bst3187 INR 3.2 02/12/2016 Pt Eyn6907 Low Intensity - 1.5-2.0 02/12/2016 Pt Pur9141 Mod intensity - 2.0-3.0 02/12/2016 Pt Yec9514 Hi intensity - 3.0-4.0 02/12/2016 Free T4 Znn996 FREE T4 1.24 ng/dL 09/27/2015 %Hba1C Ksc461 % HbA1c 67841-1 6.4 % 09/27/2015 %Hba1C Ivw043 Gluc Ave 137 mg/dL 09/27/2015 Tsh Ord6 hTSH II 0.37 uIU/mL 09/27/2015 Pt Fuk6325 PT 26.2 seconds 09/27/2015 Pt Fnv2911 INR 2.5 09/27/2015 Pt Mqt9113 Low Intensity - 1.5-2.0 09/27/2015 Pt Ezv0582 Mod intensity - 2.0-3.0 09/27/2015 Pt Qzi7115 Hi intensity - 3.0-4.0 09/27/2015 Pt Fyg5414 PT 27.6 seconds 2015 Pt Pza0728 INR 2.7 2015 Pt Iuy1150 Low Intensity - 1.5-2.0 2015 Pt Ejl8296 Mod intensity - 2.0-3.0 2015 Pt Owy6435 Hi intensity - 3.0-4.0 2015 %Hba1C Dft934 % HbA1c 64936-1 6.1 % 06/11/2015 %Hba1C Etb599 Gluc Ave 128 mg/dL 06/11/2015 Cbc With [...] Ord2 RDW 15.8 % 06/10/2015 Comp Metabolic Uoe087 NA 139 mEq/L 06/10/2015 Comp Metabolic Wwn134 K 4.1 mEq/L 06/10/2015 Comp Metabolic Tmp302 CL 105 mEq/L 06/10/2015 Comp Metabolic Mmz131 CO2 27.0 mEq/L 06/10/2015 Comp Metabolic Nzj879 AN ION GAP 11 06/10/2015 Comp Metabolic Nii791 GL UCOSE 127 mg/dL 06/10/2015 Comp Metabolic Ybn077 Cr eat 1.0 mg/dL 06/10/2015 Comp Metabolic Bjg182 eG FR 59 ml/min/1.73m2 06/10 Comp Metabolic Amb992 BUN 21 mg/dL 06/10/2015 Comp Metabolic Djm451 B/ C Ratio 21.2 Ratio 06/10/2015 Comp Metabolic Zec375 CA LCIUM 9.2 mg/dL 06/10/2015 Comp Metabolic Mdx372 AL K PHOS 87 U/L 06/10/2015 Comp Metabolic Pkf021 T(SGOT) 20 U/L 06/10/2015 Comp Metabolic Lcu807 AL T(SGPT) 17 U/L 06/10/2015 Comp Metabolic Hfp306 BI LI T 0.4 mg/dL 06/10/2015 Comp Metabolic Spy671 AL BUMIN 4.1 g/dL 06/10/2015 Comp Metabolic Dge429 TP RO 7.2 g/dL 06/10/2015 Comp Metabolic Kvr648 GL OB 3.1 g/dL 06/10/2015 Comp Metabolic Fvb592 A/ G Ratio 1.3 Ratio 06/10/2015 Comp Metabolic Nhv619 Os mo 282 mOsmo 06/10/2015 Tsh Ord6 hTSH II 0.86 uIU/mL 06/10/2015 Lipid Ord30 CHOL 161 mg/dL 06/10/2015 Lipid Ord30 HDL 49.0 mg/dl 06/10/2015 Lipid Ord30 TRIG 208 mg/dL 06/10/2015 Lipid Ord30 LDL 70 mg/dL 06/10/2015 Lipid Ord30 C/HDL 3.3 Ratio 06/10/2015 Pt [id number] PT 25.0 seconds 04/09/2015 Pt Tkr5752 INR 2.4 04/09/2015 Pt Sjd3256 Low Intensity - 1.5-2.0 04/09/2015 Pt Aow6143 Mod intensity - 2.0-3.0 04/09/2015 Pt Hwn1428 Hi intensity - 3.0-4.0 04/09/2015 Free T4 Zcr821 FREE T4 1.05 ng/dL 01/22/2015 Pt Iqz3749 PT 27.2 seconds 01/22/2015 Pt Wqs6740 INR 2.6 01/22/2015 Pt Sod0225 Low Intensity - 1.5-2.0 01/22/2015 Pt Bkg8413 Mod intensity - 2.0-3.0 01/22/2015 Pt Pll2915 Hi intensity - 3.0-4.0 01/22/2015 Cbc With [...] Differential Ord2 RDW 15.2 % 01/22/2015 B12 Iat466 B12 402.00 pg/ml 01/22/2015 Tsh Ord6 hTSH II 0.65 uIU/mL 01/22/2015 Lipid Ord30 CHOL 166 mg/dL 01/22/2015 Lipid Ord30 HDL 48.0 mg/dl 01/22/2015 Lipid Ord30 TRIG 264 mg/dL 01/22/2015 Lipid Ord30 LDL 65 mg/dL 01/22/2015 Lipid Ord30 C/HDL 3.5 Ratio 01/22/2015 Comp Metabolic Iij532 NA 138 mEq/L 01/22/2015 Comp Metabolic Wlg245 K 4.1 mEq/L 01/22/2015 Comp Metabolic Lzu619 CL 104 mEq/L 01/22/2015 Comp Metabolic Ijq819 CO2 29.0 mEq/L 01/22/2015 Comp Metabolic Mvn807 AN ION GAP 9 01/22/2015 Comp Metabolic Sso539 GL UCOSE 106 mg/dL 01/22/2015 Comp Metabolic Jim977 Cr eat 0.9 mg/dL 01/22/2015 Comp Metabolic Byl023 eG FR 63 ml/min/1.73m2 01/22 Comp Metabolic Pqg830 BUN 21 mg/dL 01/22/2015 Comp Metabolic Sve889 B/ C Ratio 22.3 Ratio 01/22/2015 Comp Metabolic Pqv867 CA LCIUM 9.4 mg/dL 01/22/2015 Comp Metabolic Rzm531 AL K PHOS 83 U/L 01/22/2015 Comp Metabolic Suw691 T(SGOT) 23 U/L 01/22/2015 Comp Metabolic Sjh489 AL T(SGPT) 18 U/L 01/22/2015 Comp Metabolic Vny016 BI LI T 0.8 mg/dL 01/22/2015 Comp Metabolic Vfc995 AL BUMIN 4.2 g/dL 01/22/2015 Comp Metabolic Igq298 TP RO 7.3 g/dL 01/22/2015 Comp Metabolic Lrr792 GL OB 3.1 g/dL 01/22/2015 Comp Metabolic Dij706 A/ G Ratio 1.4 Ratio 01/22/2015 Comp Metabolic Wfh269 Os mo 279 mOsmo 01/22/2015 Review of [...] Musculoskeletal No muscle weakness 09/30/2016 Psychiatric anxiety 04/1 07/2016 Neurologic No headache 0 09/30/2016 Constitutional No [...] Date URINALYSIS NONAUTO W /O SCOPE CPT-4: 88920 03/05/2017 Vital Signs Date Vital 04/14/2018 Blood Pressure 1: 116/78 Code: 8480-6 BMI: 41.6 Code: 34739-1 Heart Rate 1: 72 bpm Height: 5'1" SpO2: 98% Weight: 220 lbs 01/18/2018 Blood Pressure 1: 132/74 Code: 8480-6 BMI: 43.5 Code: 20509-9 Heart Rate 1: 70 bpm Height: 5'1" SpO2: 97% Weight: 230 lbs 01/04/2018 Blood Pressure 1: 134/76 Code: 8480-6 BMI: 42.7 Code: 81396-3 Heart Rate 1: 83 bpm Height: 5'1" SpO2: 98% Weight: 226 lbs 09/23/2017 Blood Pressure 1: 124/76 Code: 8480-6 BMI: 42.3 Code: 80253-9 Heart Rate 1: 94 bpm Height: 5'1" SpO2: 96% Weight: 224 lbs 05/27/2017 Blood Pressure 1: 146/78 Code: 8480-6 BMI: 41.4 Code: 86938-5 Heart Rate 1: 85 bpm Height: 5'1" SpO2: 98% Weight: 219 lbs 02/24/2017 Blood Pressure 1: 138/66 Code: 8480-6 BMI: 41.4 Code: 98547-9 Heart Rate 1: 78 bpm Height: 5'1" SpO2: 97% Weight: 219 lbs 11/02/2016 Blood Pressure 1: 144/72 Code: 8480-6 BMI: 46.1 Code: 43418-9 Heart Rate 1: 78 bpm Height: 5'1" SpO2: 98% Weight: 244 lbs 09/30/2016 Blood Pressure 1: 130/76 Code: 8480-6 BMI: 45.0 Code: 18884-3 Heart Rate 1: 86 bpm Height: 5'1" SpO2: 98% Weight: 238 lbs 09/10/2016 Blood Pressure 1: 136/68 Code: 8480-6 BMI: 46.3 Code: 49536-6 Heart Rate 1: 83 bpm Height: 5'1" SpO2: 98% Weight: 245 lbs 08/20/2016 Blood Pressure 1: 142/78 Code: 8480-6 BMI: 45.3 Code: 57882-9 Heart Rate 1: 84 bpm Height: 5'1" SpO2: 99% Weight: 240 lbs 06/08/2016 Blood Pressure 1: 134/76 Code: 8480-6 BMI: 44.2 Code: 99765-1 Heart Rate 1: 86 bpm Height: 5'1" SpO2: 96% Weight: 234 lbs 04/02/2016 Blood Pressure 1: 142/70 Code: 8480-6 BMI: 44.6 Code: 93603-5 Heart Rate 1: 78 bpm Height: 5'1" SpO2: 97% Weight: 236 lbs 01/14/2016 Blood Pressure 1: 146/72 Code: 8480-6 BMI: 44.2 Code: 86509-7 Heart Rate 1: 86 bpm Height: 5'1" SpO2: 96% Weight: 234 lbs 10/02/2015 Blood Pressure 1: 158/76 Code: 8480-6 BMI: 44.2 Code: 71519-5 Heart Rate 1: 67 bpm Height: 5'1" SpO2: 97% Weight: 234 lbs 07/15/2015 Blood Pressure 1: 148/78 Code: 8480-6 Blood Pressure 1: 200/90 Code: 8480-6 BMI: 44.0 Code: 36320-3 Heart Rate 1: 89 bpm Height: 5'1" SpO2: 97% Weight: 233 lbs 06/10/2015 Blood Pressure 1: 140/82 Code: 8480-6 BMI: 44.0 Code: 50484-5 Heart Rate 1: 78 bpm Height: 5'1" [...] Encounters Encounter Performer Loca tion Codes Date ([id number]) 11716 EST. 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 P ATIENT, LEVEL III Diagnosis: Localized edema[ICD10: R60.0] Diagnosis: Gastro-esophageal reflux disease without esophagitis[ICD10: K21.9] Edna Almanza MD, [facility] CPT-4: 74377 01/18/2018 ([id number]) 49345 EST. P ATIENT, LEVEL IV Diagnosis: Gastro-esophageal reflux disease without esophagitis[ICD10: K21.9] Diagnosis: Localized edema[ICD10: R60.0] Diagnosis: Essential (primary) hypertension[ICD10: I10] Diagnosis: Hypothyroidism, unspecified[ICD10: E03.9] Diagnosis: Impaired fasting glucose[ICD10: R73.01] Edna Almanza MD, [facility] CPT-4: 31035 01/04/2018 ([id number]) 90451 EST. P ATIENT, LEVEL IV Diagnosis: Essential (primary) hypertension[ICD10: I10] Diagnosis: [facility]DC (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[ICD10: Z79.01] Diagnosis: Incisional hernia without obstruction or gangrene[ICD10: K43.2] Diagnosis: Right lower quadrant pain[ICD10: R10.31] Sarai Almanza MD, [facility] CPT-4: 98940 09/23/2017 ([id number]) 01302 EST. P ATIENT, LEVEL IV Diagnosis: Essential (primary) hypertension[ICD10: I10] Diagnosis: Mixed hyperlipidemia[ICD10: E78.2] Diagnosis: Hypothyroidism, unspecified[ICD10: E03.9] Diagnosis: Impaired fasting glucose[ICD10: R73.01] Diagnosis: [facility]DC (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[ICD10: Z79.01] Edna Almanza MD, [facility] CPT-4: 05005 05/27/2017 09197 EST. PATIENT, LEVEL III Diagnosis: Pain in right hip[ICD10: M25.551] Nata Almanza MD, [facility] CPT-4: 98711 02/24/2017 ([id number]) 95600 EST. P ATIENT, LEVEL IV Diagnosis: Essential (primary) hypertension[ICD10: I10] Diagnosis: Localized edema[ICD10: R60.0] Diagnosis: Pain in right hip[ICD10: M25.551] Sarai Almanza MD, [facility] CPT-4: 44176 11/02/2016 ([id number]) 41321 EST. P ATIENT, LEVEL IV Diagnosis: Essential (primary) hypertension[ICD10: I10] Diagnosis: Localized edema[ICD10: R60.0] Sarai Almanza MD, [facility] CPT-4: 29888 09/30/2016 73616 EST. PATIENT, LEVEL IV Diagnosis: Localized edema[ICD10: R60.0] Diagnosis: Pain in joints of left hand[ICD10: M25.542] Diagnosis: Pain in joints of right hand[ICD10: M25.541] Nata Almanza MD, [facility] CPT-4: 34284 09/10/2016 29330 EST. PATIENT, LEVEL IV Diagnosis: Localized edema[ICD10: R60.0] Diagnosis: Pain in joints of left hand[ICD10: M25.542] Diagnosis: Pain in joints of right hand[ICD10: M25.541] Diagnosis: Other fatigue[ICD10: R53.83] Nata Almanza MD, [facility] CPT-4: 74271 08/20/2016 08030 EST. 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 PATIENT, LEVEL IV Diagnosis: Other allergic rhinitis[ICD10: J30.89] Diagnosis: Acute laryngopharyngitis[ICD10: J06.0] Nata Almanza MD, [facility] CPT-4: 84958 04/02/2016 86197 EST. PATIENT, LEVEL IV Diagnosis: Left upper quadrant pain[ICD10: R10.12] Nata Almanza MD, [facility] CPT-4: 80568 01/14/2016 45520 EST. PATIENT, LEVEL IV Diagnosis: Pain in left shoulder[ICD10: M25.512] Diagnosis: Body mass index (BMI) 40.0-44.9, adult[ICD10: Z68.41] Nata Almanza MD, [facility] CPT-4: 04698 10/02/2015 14045 EST. 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] Edna Almanza MD, [facility] CPT-4: 52576 06/10/2015 ([id number]) OFFICE VISI T, NEW - LEVEL 4 Diagnosis: ESSENTIAL HYPERTENSION[ICD9: 401.9] Diagnosis: HYPOTHYROIDISM[ICD9: 244.9] Diagnosis: ENCNTR LONG-RX USE NEC[ICD9: V58.69] Diagnosis: HYPERLIPIDEMIA[ICD9: 272.4] Diagnosis: Vitamin B12 deficiency[ICD9: 266.2] Diagnosis: Status post gastric surgery[ICD9: V45.89] Diagnosis: Snoring[ICD9: 786.09] [facility] CPT-4: 41671 01/22/2015 Plan of Care Planned Activity Notes [...] Hgb A1C 04/14/2018 Appointment: Edna Douglas WPtel: [address] [place] [address] (15 min) Moderate 04/14/2018 Patient Education: Patient [...] to further attempt to reduce peripheral edema. [id number]-[id number] prilosec BID and carafate QID -discussed low spice, low acidic diet 01/18/2018 Appointment: Edna Douglas WPtel: [facility] [address] (15 min) Moderate 01/18/2018 Patient Education: Patient [...] previous levels of control. 01/04/2018 Appointment: Edna Douglsa WPtel: [address] [place], [place] [phone] (30 min) Complex 01/04/2018 Patient Education: Patient Medication Summary Completed 01/04/2018 Care Plan: SCREENINGMAMMOGRAPHYDIGITAL LOINC : 99498-4 Pending 01/04/2018 Visit Plan: Abdominal hernia - not able to be taken to surgery by local providers and pt has been seen at [facility] and that surgeon felt like Kat would [...] home. 09/23/2017 Appointment: Sar[phone] [facility] (15 min) Moderate 09/23/2017 Patient Education: Patient [...] [phone] [phone] (30 min) Complex 05/27/2017 Patient Education: Patient [...] [place]. 02/24/2017 Appointment: Nata Hsu [facility]el[phone] [facility] (30 min) Complex 02/24/2017 Patient Education: Patient [...] [place]. 11/02/2016 Appointment: Sarai Almanza WPtel: [phone] [facility] (15 min) Moderate 11/02/2016 Patient Education: Patient [...] edema. 09/30/2016 Appointment: Sarai Almanza [facility]Ptel[facility] [phone] [facility] (15 min) Moderate 09/30/2016 Patient Education: Patient [...] edema. 09/10/2016 Appointment: Nata Hsu WPtel: [address] [place] [address] (30 min) Complex 09/10/2016 Patient Education: Patient [...] peripheral edema. 08/20/2016 Appointment: Nata Hsu WPtel: [address] [place] [address] (30 min) Complex 08/20/2016 Patient Education: Patient Medication Summary Completed 08/20/2016 Referral: Otf Lee [address] Referral Initiated 07/02/2016 Visit Plan: Chronic [...] 06/08/2016 Care Plan: Referral Order SNOMED-CT : [id number] Pending 06/08/2016 Visit Plan: URI - Pt [...] spray. 04/02/2016 Appointment: Nata Hsu [facility]el[facility] [phone] [facility] (30 min) Complex 04/02/2016 Patient Education: [...] acute pain 01/14/2016 Appointment: Edna Douglas WPtel: [phone] (30 min) Complex 01/14/2016 Patient Education: Patient Medication Summary Completed 01/14/2016 Patient Education: Obesity Completed 01/14/2016 Care Plan: BMI Above normal followup DAVID F-MGMT EDUC & TRAIN 1 PT Pending 10/24/2015 Care Plan: X-RAY EXAM OF SHOULDER LOINC : 48908-9 Pending 10/24/2015 Visit Plan: Left shoulder pain [...] weight check. 10/02/2015 Appointment: Edna Douglas WPtel: [phone] (15 min) Moderate 10/02/2015 Patient Education: Patient [...] Almanza [facility]Ptel[facility] [phone] [facility] (15 min) Moderate 04/22/2015 Visit Plan: Hypertension [...] have surgical fixation - planning occurring at [facility]. Snoring - Sleep apnea symptoms [...] to medications. 01/22/2015 Appointment: Sarai Almanza WPtel: [address] [place], [place] [phone] [place] ([place]) New Patient 01/22/2015 Patient Education: Patient Medication Summary Completed 01/22/2015 Patient Education: Hypertension Completed 01/22/2015 Referral: Otf Lee [facility] Referral Initiated Instructions Comment dr almanza will eusebio e the staff [...] have surgical fixation - planning occurring at [facility]. Snoring - Sleep apnea symptoms [...] to further attempt to reduce peripheral edema. FAXX-lqitxofo-lwgdctzf prilosec BID and carafate QID -discussed low [...] and pt has been seen at [facility] and that surgeon felt like Kat would [...] if they worsen, or with other concerns. CONTINUE LASIX NE EDED FOR SWELLING CHECK [...]
--- OUTSIDE RECORDS SUMMARY | 2020-01-16 23:34 | XMS REPORT | CCD ---
Author Author Kat Almanza Organization Sarai Almanza MD, [facility] Address [address] [place] [address] Phone Care Team Providers Care Sr. 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 Number of children Unknown 3 01/22/[address]: 528890403 Never smoker 01/22/[address]: 731826284 Never drinks alcohol 01/22/2015 Allergies, Adverse Reactions, [...] 780.79 ICD-10: R53.83 Active 08/20/2016 Unknown 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 ICD-9: V58.69 ICD-10: [...] ICD-9: 780.79 ICD-10: R53.83 08/20/2016 Active 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 ICD-9: V58.69 ICD-10: [...] Fill Instructions Coumadin 4 mg tablet RxNorm: 836609 2 Tablet(s) daily 07/11/2018 02/05/2019 Active Generi c For:COUMADIN 4MG 07/22/2017 8:58:26 AM Coumadin 5 mg tablet RxNorm: 585901 Tablet(s) TAKE 1 TABLET BY MOUTH DIRE CTED 07/08/2018 01/03/2019 Ac tive Generic For:COUMADIN 5MG TAB 03/21/2018 9:13:00 AM Coumadin 1 mg tablet RxNorm: 111344 1 Tablet(s) PO daily 07/08/2018 08/06/2018 Active Coumadin 4 mg tablet RxNorm: 565580 Tablet(s) TAKE 1 TABLET BY MOUTH THREE T IMES PER WEEK (WEDNESDAY, WEDNESDAY AND WEDNESDAY) 07/08/2018 07/10/2018 Inactive Gene andre For:COUMADIN 4MG 07/22/2017 8:58:26 AM venlafaxine ER 75 mg capsule,extended release 24 hr RxNorm: 871190 Capsule(s) TAKE 1 CAPSULE BY MOUTH ONCE DAILY 06/23/2018 06/17/2019 Active Generic For:*EFFEXOR XR 75MG 06/19/2017 12:23:45 PM sodium bicarbonate 6 50 mg tablet RxNorm: 277689 Tablet(s) TAKE 2 TABL ETS BY MOUTH TWICE DAILY 06/23/2018 12/19/2018 Active 12/20/2017 9:10:59 AM Coumadin 1 mg tablet RxNorm: 467921 1 Tablet(s) PO daily 06/17/2018 07/07/2018 Inactive Coumadin 1 mg tablet RxNorm: 430621 1 Tablet(s) PO daily 06/17/2018 06/16/2018 Inactive clonazepam 0.5 mg ta blet RxNorm: 659649 1 Tablet(s) PO BID 06/08/2018 11/04/2018 Active Synthroid 137 mcg ta blet RxNorm: 821263 TAKE 1 TABLET BY MOUT H ONCE DAILY 05/18/2018 11/13/2018 Ac tive Generic For:SYNTHROID 137MCG TAB 2017 8:57:54 AM spironolactone 25 mg tablet RxNorm: 123516 TAKE 1 TABLET BY MOUT H EVERY DAY 05/18/2018 05/12/2019 Ac tive Generic For:*ALDACTONE 25MG 05/18/2018 8:57:50 AM Carafate 1 gram tablet RxNorm: 712396 TAKE ONE TABLET BY MOUTH BEFORE MEALS AN D AT BEDTIME 05/18/2018 07/12/2018 Inactive Generic For:CARAFATE 1GM 1 07/18/2017 8:38:28 AM allopurinol 300 mg t ablet RxNorm: 529631 TAKE 1 TABLET BY MOUT H ONCE DAILY. 04/18/2018 10/14/2018 Ac tive Generic For:ZYLOPRIM 300 MG TABLET 03/22 9:13:47 AM Lasix 20 mg tablet RxNorm: 245272 TAKE ONE TABLET BY MOUTH DAILY 04/18/2018 08/15/2018 Ac tive Generic For:LASIX 20MG 04/18/2018 9:13: 50 AM Carafate 1 gram tablet RxNorm: 702765 TAKE ONE TABLET BY MOUTH BEFORE MEALS AN D AT BEDTIME 04/18/2018 05/17/2018 Inactive Generic For:CARAFATE 1GM 1 9:32:51 AM Coumadin 5 mg tablet RxNorm: 849834 TAKE 1 TABLET BY MOUTH DIRECTED 03/21/2018 07/07/2018 In active Generic For:COUMADIN 5MG TAB 03/21/2018 9:13:00 AM Carafate 1 gram tablet RxNorm: 670308 TAKE ONE TABLET BY MOUTH BEFORE MEALS AN D AT BEDTIME 03/21/2018 04/17/2018 Inactive Generic For:CARAFATE 1GM 1 9:14:24 AM Carafate 1 gram tablet RxNorm: 016947 1 Tablet(s) PO AC & HS 02/17/2018 03/20/2018 Inactive atenolol 100 mg tablet RxNorm: 298637 1 Tablet(s) PO daily 02/04/2018 09/01/2018 Active atenolol 50 mg tablet RxNorm: 058079 1 Tablet(s) PO daily 02/03/2018 02/03/2018 Inactive omeprazole 20 mg cap sean,delayed release RxNorm: 748845 1 Capsule(s) BID 01/21/2018 01/15/2019 Ac tive Generic For:PRILOSEC 20MG 07/22/2017 8:5 8:20 AM Carafate 1 gram tablet RxNorm: 447228 1 Tablet(s) PO AC & HS 01/21/2018 02/16/2018 Inactive Carafate 1 gram tablet RxNorm: 002476 1 Tablet(s) PO AC & HS 01/18/2018 01/20/2018 Inactive Carafate 1 gram tablet RxNorm: 623851 1 Tablet(s) PO AC & HS 01/18/2018 02/27/2018 Inactive Carafate 1 gram tablet RxNorm: 853122 1 Tablet(s) PO AC & HS TAKE ONE TABLET B Y MOUTH TWICE DAILY 01/18/2018 05/17/2018 Inactive Generic For:CARAFATE 1GM 0 12/20/2017 9:10:56 AM omeprazole 20 mg cap sean,delayed release RxNorm: 677118 Capsule(s) TAKE 1 CAP SEAN BY MOUTH EVERY DAY 01/17/2018 01/20/2018 Inactive Generic For:PRILOSEC 20MG 0 07/22/2017 8:58:20 AM omeprazole 20 mg cap sean,delayed release RxNorm: 145627 Capsule(s) TAKE 1 CAP SEAN BY MOUTH EVERY DAY 01/14/2018 01/16/2018 Inactive Generic For:PRILOSEC 20MG 07/22/2017 8:58:20 AM Plavix 75 mg tablet RxNorm: 290564 1 Tablet(s) PO daily 01/07/2018 07/05/2018 Inactive clonazepam 0.5 mg ta blet RxNorm: 518825 1 Tablet(s) PO BID 01/07/2018 06/05/2018 Inactive Carafate 1 gram tablet RxNorm: 159784 1 Tablet(s) PO AC & HS 01/04/2018 01/17/2018 Inactive Lasix 20 mg tablet RxNorm: 272926 TAKE ONE TABLET BY MOUTH DAILY 12/20/2017 04/17/2018 In active Generic For:LASIX 20MG 12/20/2017 9:11: 03 AM sodium bicarbonate 6 50 mg tablet RxNorm: 243649 TAKE 2 TABLETS BY JAVON TH TWICE DAILY 12/20/2017 06/17/2018 In active 12/20/2017 9:10:59 AM Carafate 1 gram tablet RxNorm: 729366 TAKE ONE TABLET BY MOUTH TWICE DAILY 12/20/2017 01/17/2018 In active Generic For:CARAFATE 1GM 12/20/2017 9:1 0:56 AM Synthroid 137 mcg ta blet RxNorm: 634010 TAKE 1 TABLET BY MOUT H ONCE DAILY 11/19/2017 05/17/2018 In active Generic For:SYNTHROID 137MCG TAB 2017 8:58:04 AM Detrol LA 4 mg capsu le,extended release RxNorm: 987035 TAKE 1 CAPSULE BY JAVON TH ONCE DAILY 10/20/2017 04/13/2018 Inactive Generic For:DETROL LA 4MG C AP 10/20/2017 9:01:56 AM allopurinol 300 mg t ablet RxNorm: 924031 TAKE 1 TABLET BY MOUT H ONCE DAILY. 10/20/2017 04/17/2018 In active Generic For:ZYLOPRIM 300 MG TABLET 07/2017 9:01:59 AM Coumadin 5 mg tablet RxNorm: 904687 1 Tablet(s) PO UD 10/01/2017 03/20/2018 Inactive cyclobenzaprine 5 mg tablet RxNorm: 581061 1 Tablet(s) PO TID as needed myscle spasm 09/23/2017 10/12/2017 Inactive Lipitor 40 mg tablet RxNorm: 699421 TAKE 1 TABLET BY MOUTH ONCE DAILY 09/20/2017 09/14/2018 Ac tive Generic For:LIPITOR 40MG 09/20/2017 8:5 6:04 AM atenolol 100 mg tablet RxNorm: 033044 1 Tablet(s) PO daily 08/30/2017 02/03/2018 Inactive atenolol 50 mg tablet RxNorm: 548889 1 Tablet(s) PO daily 08/30/2017 08/30/2017 Inactive Lovenox 30 mg/0.3 mL subcutaneous syringe RxNorm: 304818 0.3 Milliliter(s) SQ Q12H 08/24/2017 09/06/2017 In active Lasix 20 mg tablet RxNorm: 818242 TAKE ONE TABLET BY MOUTH DAILY 08/23/2017 12/19/2017 In active Generic For:LASIX 20MG 08/21/2017 9:04: 27 AM Synthroid 137 mcg ta blet RxNorm: 551236 TAKE 1 TABLET BY MOUT H ONCE DAILY 08/23/2017 11/18/2017 In active Generic For:SYNTHROID 137MCG TAB 2017 9:04:30 AM Lovenox 30 mg/0.3 mL subcutaneous syringe RxNorm: 277163 0.3 Milliliter(s) SQ Q12H 08/10/2017 08/23/2017 In active clonazepam 0.5 mg ta blet RxNorm: 056705 1 Tablet(s) PO BID 08/04/2017 12/30/2017 Inactive Coumadin 4 mg tablet RxNorm: 639934 TAKE 1 TABLET BY MOUTH THREE TIMES PER [place] (WEDNESDAY, WEDNESDAY AND WEDNESDAY) 07/22/2017 02/16/2018 Inactive Generic For:COUMADIN 4MG 07/22/2017 8:58:26 AM omeprazole 20 mg cap sean,delayed release RxNorm: 765967 TAKE 1 CAPSULE BY JAVON TH EVERY DAY 07/22/2017 01/13/2018 Inactive Generic For:PRILOSEC 20MG 07/22/2017 8: 58:20 AM Coumadin 4 mg tablet RxNorm: 683762 TAKE 1 TABLET BY MOUTH THREE TIMES PER [place] (WEDNESDAY, WEDNESDAY AND WEDNESDAY) 07/22/2017 02/16/2018 Inactive Generic For:COUMADIN 4MG 07/22/2017 8:58:26 AM sodium bicarbonate 6 50 mg tablet RxNorm: 761659 TAKE 2 TABLETS BY JAVON TH TWICE DAILY 06/22/2017 12/18/2017 In active 06/19/2017 12:23:30 PM venlafaxine ER 75 mg capsule,extended release 24 hr RxNorm: 521109 TAKE 1 CAPSULE BY MOUTH ONCE DAILY 06/22/2017 06/16/2018 Inactive Generic For:*EFFEXOR XR 75M G 06/19/2017 12:23:45 PM Coumadin 5 mg tablet RxNorm: 323543 1 Tablet(s) PO UD 06/01/2017 09/30/2017 Inactive Keflex 500 mg capsule RxNorm: 777497 1 Capsule(s) PO TID 05/27/2017 06/02/2017 Inactive Synthroid 137 mcg ta blet RxNorm: 841731 TAKE 1 TABLET BY MOUT H ONCE DAILY 05/24/2017 08/21/2017 In active Generic For:SYNTHROID 137MCG TAB 2016 8:55:59 AM Carafate 1 gram tablet RxNorm: 071289 TAKE ONE TABLET BY MOUTH TWICE DAILY 05/24/2017 12/19/2017 In active Generic For:CARAFATE 1GM 05/24/2017 8:5 5:54 AM spironolactone 25 mg tablet RxNorm: 207979 1 Tablet(s) PO daily 05/24/2017 05/17/2018 Inactive Detrol LA 4 mg capsu le,extended release RxNorm: 682645 1 Capsule(s) PO daily TAKE 1 CAPSULE BY MOUTH ONCE DAILY 05/10/2017 10/19/2017 Inactive Generic For:DETROL LA 4MG CAP 02/19/2017 2:36:00 PM Lasix 20 mg tablet RxNorm: 247497 TAKE ONE TABLET BY MOUTH DAILY 04/23/2017 08/20/2017 In active Generic For:LASIX 20MG 04/23/2017 9:04: 01 AM Coumadin 4 mg tablet RxNorm: 216866 TAKE 1 TABLET BY MOUTH THREE TIMES PER [place] (WEDNESDAY, WEDNESDAY AND WEDNESDAY) 04/23/2017 07/21/2017 Inactive Generic For:COUMADIN 4MG 04/23/2017 9:04:05 AM allopurinol 300 mg t ablet RxNorm: 065190 TAKE 1 TABLET BY MOUT H ONCE DAILY. 04/23/2017 10/19/2017 In active Generic For:ZYLOPRIM 300 MG TABLET 08/2016 9:03:57 AM potassium chloride 2 0 mEq/15 mL oral liquid RxNorm: 261656 Milliliter(s) 30 Milliliter(s) (40mEq) PO daily 03/24/2017 07/21/2017 Inactive Lovenox 30 mg/0.3 mL subcutaneous syringe RxNorm: 106813 0.3 Milliliter(s) SQ Q12H 03/22/2017 03/26/2017 In active Lovenox 30 mg/0.3 mL subcutaneous syringe RxNorm: 880958 0.3 Milliliter(s) SQ Q12H 03/19/2017 03/20/2017 In active Lovenox 30 mg/0.3 mL subcutaneous syringe RxNorm: 585191 0.3 Milliliter(s) SQ Q12H 03/16/2017 03/18/2017 In active clonazepam 0.5 mg ta blet RxNorm: 248154 1 Tablet(s) PO BID 03/02/2017 07/28/2017 Inactive Lovenox 30 mg/0.3 mL subcutaneous syringe RxNorm: 843173 1 injection SQ BID do NOT take the night time dose the day before surgery, or the morning dose the day of surgery 03/01/2017 03/07/2017 Inactive Lovenox 30 mg/0.3 mL subcutaneous syringe RxNorm: 544493 1 injection SQ BID 03/01/2017 02/28/2017 In active Detrol LA 4 mg capsu le,extended release RxNorm: 630125 TAKE 1 CAPSULE BY JAVON TH ONCE DAILY 02/19/2017 05/09/2017 Inactive Generic For:DETROL LA 4MG C AP 02/19/2017 2:36:00 PM hydrocodone 5 mg-humberto taminophen 325 mg tablet RxNorm: 755113 1-2 Tablet(s) PO Q6 P RN 02/04/2017 No Stop Date Active Zetia 10 mg tablet RxNorm: 252956 TAKE 1 TABLET BY MOUTH DAILY 01/25/2017 04/13/2018 Inactive 01/23/2017 9:03:48 AM omeprazole 20 mg cap sean,delayed release RxNorm: 671144 TAKE 1 CAPSULE BY JAVON TH EVERY DAY 01/25/2017 07/21/2017 Inactive Generic For:PRILOSEC 20MG 01/23/2017 9: 03:45 AM Coumadin 4 mg tablet RxNorm: 583300 TAKE 1 TABLET BY MOUTH THREE TIMES PER [place] (WEDNESDAY, WEDNESDAY AND WEDNESDAY) 01/25/2017 04/22/2017 Inactive Generic For:COUMADIN 4MG 01/23/2017 9:03:51 AM sodium bicarbonate 6 50 mg tablet RxNorm: 746922 TAKE 2 TABLETS BY JAVON TH TWICE DAILY 12/24/2016 06/21/2017 In active 12/24/2016 9:09:27 AM Lasix 20 mg tablet RxNorm: 457527 1 Tablet(s) PO daily 12/24/2016 04/22/2017 Inactive Synthroid 137 mcg ta blet RxNorm: 039446 TAKE 1 TABLET BY MOUT H ONCE DAILY 11/24/2016 05/22/2017 In active Generic For:SYNTHROID 137MCG TAB 2016 9:04:37 AM Coumadin 4 mg tablet RxNorm: 311710 TAKE 1 TABLET BY MOUTH THREE TIMES PER [place] (WEDNESDAY, WEDNESDAY AND WEDNESDAY) 11/24/2016 01/22/2017 Inactive Generic For:COUMADIN 4MG 11/24/2016 9:04:41 AM hydrocodone 5 mg-humberto taminophen 325 mg tablet RxNorm: 748275 1-2 Tablet(s) PO Q6 P RN 11/17/2016 02/03/2017 In active Carafate 1 gram tablet RxNorm: 407147 TAKE ONE TABLET BY MOUTH TWICE DAILY 10/27/2016 05/23/2017 In active Generic For:CARAFATE 1GM 10/26/2016 8:3 9:42 AM allopurinol 300 mg t ablet RxNorm: 061549 Tablet(s) TAKE 1 TABL ET BY MOUTH ONCE DAILY. 10/26/2016 04/22/2017 Inactive Lipitor 40 mg tablet RxNorm: 979036 1 Tablet(s) PO daily 09/25/2016 09/19/2017 Inactive Coumadin 4 mg tablet RxNorm: 410932 TAKE 1 TABLET BY MOUTH THREE TIMES PER [place] (WEDNESDAY, WEDNESDAY AND WEDNESDAY) 09/25/2016 11/23/2016 Inactive Generic For:COUMADIN 4MG 09/25/2016 8:55:58 AM Zetia 10 mg tablet RxNorm: 618116 1 Tablet(s) PO daily 09/25/2016 01/22/2017 Inactive gave 1 month of samples clonazepam 0.5 mg ta blet RxNorm: 825112 1 Tablet(s) PO BID 09/21/2016 02/16/2017 Inactive Lasix 20 mg tablet RxNorm: 327499 1 Tablet(s) PO daily 09/15/2016 12/23/2016 Inactive potassium chloride 2 0 mEq/15 mL oral liquid RxNorm: 665785 Milliliter(s) 30 Milliliter(s) (40mEq) PO daily 09/15/2016 01/12/2017 Inactive Lasix 20 mg tablet RxNorm: 183886 2 Tablet(s) PO daily 09/10/2016 09/12/2016 Inactive Lasix 20 mg tablet RxNorm: 844131 1 Tablet(s) PO daily 08/28/2016 08/30/2016 Inactive Lasix 20 mg tablet RxNorm: 515525 1 Tablet(s) PO daily 08/20/2016 08/22/2016 Inactive Detrol LA 4 mg capsu le,extended release RxNorm: 240994 TAKE 1 CAPSULE BY JAVON TH ONCE DAILY 07/27/2016 02/18/2017 Inactive Generic For:DETROL LA 4MG C AP 07/27/2016 9:08:27 AM Coumadin 4 mg tablet RxNorm: 858375 1 Tablet(s) PO 3 x week wed and sun 07/27/2016 09/24/2016 In active omeprazole 20 mg cap sean,delayed release RxNorm: 551402 Capsule(s) PO TAKE 1 CAPSULE BY MOUTH ONCE DAILY 07/27/2016 01/22/2017 Inactive venlafaxine ER 75 mg capsule,extended release 24 hr RxNorm: 991237 1 Capsule(s) PO daily 06/29/2016 06/21/2017 Inactive sodium bicarbonate 6 50 mg tablet RxNorm: 546029 TAKE 2 TABLETS BY JAVON TH TWICE DAILY 06/29/2016 12/23/2016 In active 06/27/2016 9:05:39 AM Coumadin 4 mg tablet RxNorm: 582583 1 Tablet(s) PO 3 x week e and sun 06/09/2016 06/08/2016 In active Coumadin 4 mg tablet RxNorm: 714467 1 Tablet(s) PO 3 x week e and sun 06/09/2016 07/26/2016 In active Zetia 10 mg tablet RxNorm: 059931 1 Tablet(s) PO daily 06/09/2016 06/08/2016 Inactive gave 1 month of samples Zetia 10 mg tablet RxNorm: 548971 1 Tablet(s) PO daily 06/09/2016 09/24/2016 Inactive gave 1 month of samples Effexor 75 mg tablet RxNorm: 896951 1 Tablet(s) PO daily 06/08/2016 06/28/2016 Inactive spironolactone 25 mg tablet RxNorm: 884463 1 Tablet(s) PO daily 06/08/2016 05/23/2017 Inactive Synthroid 137 mcg ta blet RxNorm: 998833 1 Tablet(s) PO daily 05/07/2016 11/02/2016 Inactive allopurinol 300 mg t ablet RxNorm: 542517 Tablet(s) TAKE 1 TABL ET BY MOUTH ONCE DAILY. 04/28/2016 10/24/2016 Inactive clonazepam 0.5 mg ta blet RxNorm: 218623 1 Tablet(s) PO BID 04/20/2016 09/15/2016 Inactive Flonase Allergy Reli ef 50 mcg/actuation nasal spray,suspension RxNorm: 7436413 1 [place] NASAL BID 04/02/2016 No Stop Date Active Zithromax Z-Thomas 250 mg tablet RxNorm: 063005 Tablet(s) PO 04/02/2016 08/27/2016 Inactive cetirizine 10 mg tablet RxNorm: 2075091 1 Tablet(s) PO daily 04/02/2016 05/01/2016 Inactive Carafate 1 gram tablet RxNorm: 681669 Tablet(s) TAKE 1 TABLET TWICE A DAY FOR 30 DAYS 03/30/2016 10/25/2016 Inactive Generic For:CARAFATE 1GM 02/08/2015 12:3 6:39 PM Plavix 75 mg tablet RxNorm: 397408 1 Tablet(s) PO daily 03/11/2016 09/06/2016 Inactive sodium bicarbonate 6 50 mg tablet RxNorm: 106952 Tablet(s) 2 Tablet(s) PO BID 02/28/2016 06/26/2016 In active omeprazole 20 mg cap sean,delayed release RxNorm: 548863 Capsule(s) PO TAKE 1 CAPSULE BY MOUTH ONCE DAILY 01/31/2016 07/26/2016 Inactive Fish Oil 1,000 mg ca psule RxNorm: 1 Capsule(s) PO BID 01/14/2016 No Stop Date Active Synthroid 137 mcg ta blet RxNorm: 958926 1 Tablet(s) PO daily 01/14/2016 05/06/2016 Inactive Detrol LA 4 mg capsu le,extended release RxNorm: 345854 TAKE 1 CAPSULE BY JAVON TH ONCE DAILY 12/30/2015 07/26/2016 Inactive Generic For:DETROL LA 4MG C AP 12/30/2015 9:11:01 AM potassium chloride 2 0 mEq/15 mL oral liquid RxNorm: 349172 Milliliter(s) 30 Milliliter(s) (40mEq) PO daily 12/02/2015 03/30/2016 Inactive sodium bicarbonate 6 50 mg tablet RxNorm: 340382 Tablet(s) 2 Tablet(s) PO BID 10/31/2015 02/27/2016 In active Lipitor 40 mg tablet RxNorm: 538742 1 Tablet(s) PO daily 10/09/2015 09/24/2016 Inactive sodium bicarbonate 6 50 mg tablet RxNorm: 934055 2 Tablet(s) PO BID 10/01/2015 10/30/2015 Inactive allopurinol 300 mg t ablet RxNorm: 703467 TAKE 1 TABLET BY MOUT H ONCE DAILY. 10/01/2015 04/27/2016 In active Generic For:ZYLOPRIM 300 MG TABLET 09/19 9:21:15 AM clonazepam 0.5 mg ta blet RxNorm: 763265 1 Tablet(s) PO BID 09/30/2015 04/19/2016 Inactive Coumadin 5 mg tablet RxNorm: 611303 1 Tablet(s) PO daily 09/27/2015 05/31/2017 Inactive Generic For:COUMADIN 5MG TAB N O T I C E PRESCRIPTION PREVIOUSLY AUTHORIZED BY DOCTOR:BOBBY ZULETA Synthroid 125 mcg ta blet RxNorm: 571230 1 Tablet(s) PO daily 09/27/2015 09/26/2015 Inactive Synthroid 125 mcg ta blet RxNorm: 352515 1 Tablet(s) PO daily 09/27/2015 01/13/2016 Inactive Carafate 1 gram tablet RxNorm: 237685 Tablet(s) TAKE 1 TABLET TWICE A DAY FOR 30 DAYS 09/02/2015 03/29/2016 Inactive Generic For:CARAFATE 1GM 02/08/2015 12:3 6:39 PM sodium bicarbonate 6 50 mg tablet RxNorm: 289209 2 Tablet(s) PO BID 09/02/2015 09/30/2015 Inactive Prilosec 20 mg capsu le,delayed release RxNorm: 268445 TAKE 1 CAPSULE BY JAVON TH ONCE DAILY 08/02/2015 01/28/2016 Inactive Generic For:PRILOSEC 20MG 08/02/2015 10:03:09 AM N O T I C E PRESCRIPTION PREVIOUSLY AUTHORIZED BY DOCTOR:BOBBY ZULETA Zyrtec 10 mg capsule RxNorm: 3720187 1 Capsule(s) PO daily 07/15/2015 08/13/2015 Inactive Keflex 500 mg capsule RxNorm: 279268 1 Capsule(s) PO TID 07/15/2015 07/21/2015 Inactive cetirizine 10 mg cap sean RxNorm: 2344114 1 Capsule(s) PO daily 07/15/2015 08/13/2015 Inactive hydrocodone 5 mg-humberto taminophen 325 mg tablet RxNorm: 222482 1-2 Tablet(s) PO Q6 P RN 06/10/2015 11/16/2016 In active sodium bicarbonate 6 50 mg tablet RxNorm: 644623 2 Tablet(s) PO BID 06/03/2015 08/31/2015 Inactive Detrol LA 4 mg capsu le,extended release RxNorm: 489302 TAKE 1 CAPSULE BY JAVON TH ONCE DAILY 06/03/2015 12/29/2015 Inactive Generic For:DETROL LA 4MG C AP N O T I C E PRESCRIPTION PREVIOUSLY AUTHORIZED BY DOCTOR:BOBBY ZULETA atenolol 50 mg tablet RxNorm: 834109 1 Tablet(s) PO daily TAKE 1 TABLET BY MO UTH DAILY 05/07/2015 08/23/2017 Inactive Generic For:TENORMIN 50MG 05/04/2015 9:07:22 AM spironolactone 25 mg tablet RxNorm: 458575 1 Tablet(s) PO daily 05/06/2015 06/07/2016 Inactive venlafaxine ER 75 mg capsule,extended release 24 hr RxNorm: 135080 1 Capsule(s) PO daily 05/04/2015 06/28/2016 Inactive atenolol 50 mg tablet RxNorm: 139486 TAKE 1 TABLET BY MOUTH DAILY 05/04/2015 05/06/2015 Inactive Generic For:TENORMIN 50MG 05/04/2015 9: 07:22 AM Synthroid 150 mcg ta blet RxNorm: 532408 TAKE 1 TABLET BY MOUT H ONCE DAILY. 04/05/2015 09/26/2015 In active Generic For:SYNTHROID 150MCG TAB 2014 4:45:40 PM N O T I C E PRESCRIPTION PREVIOUSLY AUTHORIZED BY DOCTOR:BOBBY ZULETA Effexor 75 mg tablet RxNorm: 253849 1 Tablet(s) PO daily 04/05/2015 07/03/2015 Inactive Coumadin 5 mg tablet RxNorm: 483953 TAKE 1 AND 1/2 TABLETS BY MOUTH ONCE MYRANDA LY 04/04/2015 09/26/2015 In active Generic For:COUMADIN 5MG TAB N O T I C E PRESCRIPTION PREVIOUSLY AUTHORIZED BY DOCTOR:BOBBY ZULETA clonazepam 0.5 mg ta blet RxNorm: 759306 1 Tablet(s) PO BID 03/13/2015 11/05/2015 Inactive sodium bicarbonate 6 50 mg tablet RxNorm: 668591 2 Tablet(s) PO BID 03/08/2015 06/02/2015 Inactive allopurinol 300 mg t ablet RxNorm: 807319 TAKE 1 TABLET BY MOUT H ONCE DAILY. 03/05/2015 09/30/2015 In active N O T I C E PRESCRIPTION PREVIOUSLY A UTHORIZED BY DOCTOR:BOBBY ZULETA Plavix 75 mg tablet RxNorm: 145367 1 Tablet(s) PO daily 02/12/2015 09/09/2015 Inactive clonazepam 0.5 mg ta blet RxNorm: 842346 1 Tablet(s) PO BID 02/11/2015 03/11/2015 Inactive Carafate 1 gram tablet RxNorm: 444369 TAKE 1 TABLET TWICE A DAY FOR 30 DAYS 02/08/2015 02/07/2015 In active Generic For:CARAFATE 1GM 02/08/2015 12:3 6:39 PM Carafate 1 gram tablet RxNorm: 535331 Tablet(s) TAKE 1 TABLET TWICE A DAY FOR 30 DAYS 02/08/2015 09/01/2015 Inactive Generic For:CARAFATE 1GM 02/08/2015 12:3 6:39 PM potassium chloride 2 0 mEq/15 mL oral liquid RxNorm: 056954 30 Milliliter(s) (40m Eq) PO daily 02/05/2015 12/01/2015 Inactive atenolol 50 mg tablet RxNorm: 408689 1 Tablet(s) PO daily 02/04/2015 05/03/2015 Inactive [SAVINGS FOR NON-COVERED DRUGS -- BIN:00 3585, PCN: [id number], Group: XXXXX, ID# XXXXXXX, Questions: . THIS IS NOT INSURANCE.] potassium chloride 2 0 mEq/15 mL oral liquid RxNorm: 696372 30 Milliliter(s) (40m Eq) PO daily 01/08/2015 02/04/2015 Inactive potassium chloride 2 0 mEq/15 mL oral liquid RxNorm: 135203 30 Milliliter(s) (40m Eq) PO daily 12/07/2014 01/07/2015 Inactive atenolol 50 mg tablet RxNorm: 174968 1 Tablet(s) PO daily 11/09/2014 11/08/2014 Inactive atenolol 50 mg tablet RxNorm: 712451 1 Tablet(s) PO daily 11/09/2014 02/03/2015 Inactive [SAVINGS FOR NON-COVERED DRUGS -- BIN:00 0935, PCN: ASPROD1, Group: XXXXX, ID# XXXXXXX, Questions: . THIS IS NOT INSURANCE.] Voltaren 1 % topical gel RxNorm: 220586 TOP No St art Date Active verapamil ER (HS) 24 0 mg tablet,extended release 24 hr RxNorm: 775755 1 Tablet(s) PO daily No Start Date Active aspirin 81 mg tablet RxNorm: 312880 1 Tablet(s) PO daily No Start Date Active Zofran 4 mg tablet RxNorm: 275895 1 Tablet(s) PO PRN No Start Date Active B12 1000 mcg RxNorm: 1 Tablet(s) PO daily No Start Date Active magnesium oxide 400 mg capsule RxNorm: 500980 2 Capsule(s) PO BID No Start Date Active Synthroid 150 mcg ta blet RxNorm: 358460 1 Tablet(s) PO daily No Start Date 04/04/2015 Inactive Coumadin 5 mg tablet RxNorm: 639574 1 Tablet(s) PO daily No Start Date 04/03/2015 Inactive cranberry 1,000 mg c apsule RxNorm: 069041 1 Capsule(s) PO daily No Start Date 04/13/2018 Inactive allopurinol 300 mg t ablet RxNorm: 124716 1 Tablet(s) PO daily No Start Date 03/04/2015 Inactive Prilosec 20 mg capsu le,delayed release RxNorm: 487923 1 Capsule(s) PO PRN No Start Date 08/01/2015 Inactive potassium chloride 2 0 mEq/15 mL oral liquid RxNorm: 853405 30 Milliliter(s) (40m Eq) PO daily No Start Date 12/06/2014 Inactive atenolol 50 mg tablet RxNorm: 460106 1 Tablet(s) PO daily No Start Date 08/29/2017 Inactive Lipitor 40 mg tablet RxNorm: 852008 1 Tablet(s) PO daily No Start Date 09/19/2017 Inactive Effexor 75 mg tablet RxNorm: 702830 1 Tablet(s) PO daily No Start Date 04/04/2015 Inactive Carafate 1 gram tablet RxNorm: 060613 1 Tablet(s) PO BID No Start Date 02/07/2015 Inactive clonazepam 0.5 mg ta blet RxNorm: 621763 1 Tablet(s) PO BID No Start Date 02/10/2015 Inactive Plavix 75 mg tablet RxNorm: 743135 1 Tablet(s) PO daily No Start Date 02/11/2015 Inactive sodium bicarbonate 6 50 mg tablet RxNorm: 527292 2 Tablet(s) PO BID No Start Date 09/01/2015 Inactive Lovenox 30 mg/0.3 mL subcutaneous syringe RxNorm: 653556 0.3 Milliliter(s) SQ Q12H No Start Date 03/15/2017 Inactive Fish Oil 1,000 mg ca psule RxNorm: 1 Capsule(s) PO daily No Start Date 01/13/2016 Inactive Detrol LA 4 mg capsu le,extended release RxNorm: 506360 1 Capsule(s) PO daily No Start Date 06/02/2015 Inactive Medication Administered No Medication Administered data Immunizations Vaccine Codes Date Status SHINGARIX CVX: 121 03/23 completed Assessments Condition Codes Effectiv e Dates [facility] (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 ICD-10: Z79.01 ICD-9: V58.61 04/14/2018 Hypothyroidism, unspecified ICD-10: E03.9 ICD-9: 244.9 04/14/2018 Essential (primary) hypertension ICD -10: I10 ICD-9: 401.9 04/14/2018 Impaired fasting glucose ICD-10: R73 .01 ICD-9: 790.21 04/14/2018 Localized edema ICD-10: R60.0 ICD-9: 782.3 01/18/2018 Gastro-esophageal reflux disease without esophagitis ICD-10: K21.9 ICD-9: 530.81 01/18/2018 Incisional hernia without obstruction or gangrene ICD-10: K43.2 ICD-9: 553.21 09/23/2017 Right lower quadrant pain ICD-10: R1 0.31 ICD-9: 789.03 09/23/2017 Mixed hyperlipidemia ICD-10: E78.2 ICD-9: 272.4 05/27/2017 Dysuria ICD-10: R30.0 ICD-9: 788.1 03/05/2017 Pain in right hip ICD-10: M25.551 ICD-9: 719.45 02/24/2017 Hyperglycemia, unspecified ICD-10: R 73.9 ICD-9: 790.29 10/08/2016 Personal history of other endocrine, nut ritional and metabolic disease ICD-10: Z86.39 ICD-9: V12.29 09/18/2016 Pain in joints of left hand ICD-10: M25.542 ICD-9: 719.44 09/10/2016 Pain in joints of right hand ICD-10: M25.541 ICD-9: 719.44 09/10/2016 Other fatigue ICD-10: R53.83 ICD-9: 780.79 08/20/2016 Other usp (current) drug therapy ICD-10: Z79.899 ICD-9: V58.69 06/08/2016 Tinnitus, bilateral ICD-10: H93.13 ICD-9: 388.31 06/08/2016 Acute laryngopharyngitis ICD-10: J06 .0 ICD-9: 465.0 04/02/2016 Other allergic rhinitis ICD-10: J30. 89 ICD-9: 477.8 04/02/2016 Left upper quadrant pain ICD-10: R10 .12 ICD-9: 789.02 01/14/2016 Body mass index (BMI) 40.0-44.9, adult ICD-10: Z68.41 ICD-9: V85.41 10/02/2015 Pain in left shoulder ICD-10: M25.51 2 ICD-9: 719.41 10/02/2015 Pain in left leg ICD-10: M79.605 ICD-9: 729.5 07/15/2015 Pain in right shoulder ICD-10: M25.5 11 ICD-9: 719.41 06/10/2015 Status post gastric surgery ICD-9: V45.89 01/22/2015 ESSENTIAL HYPERTENSION ICD-9: 401.9 01/22/2015 Snoring ICD-9: 786.09 Vitamin B12 deficiency ICD-9: 266.2 01/22/2015 HYPOTHYROIDISM ICD-9: 244.9 01/22/2015 ENCNTR LONG-RX USE NEC ICD-9: V58.69 01/22/2015 HYPERLIPIDEMIA ICD-9: 272.4 01/22/2015 Reason For Visit Reason For Visit [...] Code Item Item Code Result Date Pt [id number] PT 17.4 seconds 07/15/2018 Pt Naw6771 INR 1.5 07/15/2018 Pt Wwe4874 Low Intensity - 1.5-2.0 07/15/2018 Pt Wxr3571 Mod intensity - 2.0-3.0 07/15/2018 Pt Vhe8609 Hi intensity - 3.0-4.0 07/15/2018 Pt Cei2318 PT 17.8 seconds 07/08/2018 Pt Xgo2486 INR 1.5 07/08/2018 Pt Zkg3618 Low Intensity - 1.5-2.0 07/08/2018 Pt Ckj2140 Mod intensity - 2.0-3.0 07/08/2018 Pt Crl3493 Hi intensity - 3.0-4.0 07/08/2018 Pt Pzy6858 PT 19.2 seconds 07/01/2018 Pt Xqe0519 INR 1.7 07/01/2018 Pt Vki0568 Low Intensity - 1.5-2.0 07/01/2018 Pt Jod0241 Mod intensity - 2.0-3.0 07/01/2018 Pt Ivj1701 Hi intensity - 3.0-4.0 07/01/2018 Pt Mob6643 PT 17.4 seconds 06/23/2018 Pt Bvz5180 INR 1.5 06/23/2018 Pt Jfw2324 Low Intensity - 1.5-2.0 06/23/2018 Pt Odl4784 Mod intensity - 2.0-3.0 06/23/2018 Pt Dus8371 Hi intensity - 3.0-4.0 06/23/2018 Pt Skc2570 PT 18.4 seconds 06/17/2018 Pt Cea7337 INR 1.6 06/17/2018 Pt Uqu4795 Low Intensity - 1.5-2.0 06/17/2018 Pt Yuh9172 Mod intensity - 2.0-3.0 06/17/2018 Pt Biq3522 Hi intensity - 3.0-4.0 06/17/2018 Sed Rate Ord21 ESR 5 mm/hr 06/08/2018 Cbc With Differential Ord2 WBC 5.45 K/ul 06/08/2018 Cbc With Differential Ord2 RBC 4.93 M/ul 06/08/2018 Cbc With Differential Ord2 HGB 15.0 g/dl 06/08/2018 Cbc With Differential Ord2 Neut% 65.1 % 06/08/2018 Cbc With Differential Ord2 HCT 43.8 % 06/08/2018 Cbc With Differential Ord2 MCV 88.8 fl 06/08/2018 Cbc With Differential Ord2 Lymph% 22.0 % 06/08/2018 Cbc With Differential Ord2 Vilas% 9.4 % 06/08/2018 Cbc With Differential Ord2 [...] 1.20 K/ul 06/08/2018 Cbc With Differential Ord2 Vilas ABS# 0.5 K/ul 06/08/2018 Cbc With Differential Ord2 Eos ABS# 0.1 K/ul 06/08/2018 Cbc With Differential Ord2 Baso ABS# 0.1 K/ul 06/08/2018 C-Reactive Protein Qnt Crqnt CRP 0.1 mg/dl 06/08/2018 Pt Ude6221 PT 17.6 seconds 06/08/2018 Pt Wqq8409 INR 1.5 06/08/2018 Pt Vhr5387 Low Intensity - 1.5-2.0 06/08/2018 Pt Whq2501 Mod intensity - 2.0-3.0 06/08/2018 Pt Tpc3917 Hi intensity - 3.0-4.0 06/08/2018 Pt Ier8583 PT 16.8 seconds 05/10/2018 Pt Ktr1768 INR 1.4 05/10/2018 Pt Ayl9481 Low Intensity - 1.5-2.0 05/10/2018 Pt Zvg8131 Mod intensity - 2.0-3.0 05/10/2018 Pt Esa0831 Hi intensity - 3.0-4.0 05/10/2018 Pt Chb7089 PT 16.7 seconds 05/04/2018 Pt Wau0733 INR 1.4 05/04/2018 Pt Sln2232 Low Intensity - 1.5-2.0 05/04/2018 Pt Gpr6101 Mod intensity - 2.0-3.0 05/04/2018 Pt Urt3370 Hi intensity - 3.0-4.0 05/04/2018 %Hba1C Uat216 % HbA1c 42256-8 5.9 % 04/14/2018 %Hba1C Egv808 Gluc Ave 123 mg/dL 04/14/2018 Pt Xhq4059 PT 20.3 seconds 04/14/2018 Pt Job4009 INR 1.8 04/14/2018 Pt Ibe8817 Low Intensity - 1.5-2.0 04/14/2018 Pt Eds0867 Mod intensity - 2.0-3.0 04/14/2018 Pt Qqb1745 Hi intensity - 3.0-4.0 04/14/2018 Lipid Ord30 CHOL 149 mg/dL 04/14/2018 Lipid Ord30 HDL 49.0 mg/dl 04/14/2018 Lipid Ord30 TRIG 161 mg/dL 04/14/2018 Lipid Ord30 LDL 68 mg/dL 04/14/2018 Lipid Ord30 C/HDL 3.0 Ratio 04/14/2018 Comp Metabolic Lct780 NA 140 mEq/L 04/14/2018 Comp Metabolic Ize273 K 4.1 mEq/L 04/14/2018 Comp Metabolic Huq929 CL 105 mEq/L 04/14/2018 Comp Metabolic Uci157 CO2 28.0 mEq/L 04/14/2018 Comp Metabolic Uxl839 AN ION GAP 11 04/14/2018 Comp Metabolic Vvs922 GL UCOSE 112 mg/dL 04/14/2018 Comp Metabolic Zxc961 Cr eat 1.0 mg/dL 04/14/2018 Comp Metabolic Mwe386 eG FR 58 ml/min/1.73m2 04/14 Comp Metabolic Oyc459 BUN 20 mg/dL 04/14/2018 Comp Metabolic Tne043 B/ C Ratio 20.2 Ratio 04/14/2018 Comp Metabolic Xkd951 CA LCIUM 10.0 mg/dL 04/14/2018 Comp Metabolic Yaq814 AL K PHOS 51 U/L 04/14/2018 Comp Metabolic Anl005 T(SGOT) 24 U/L 04/14/2018 Comp Metabolic Tnz528 AL T(SGPT) 21 U/L 04/14/2018 Comp Metabolic Usq167 BI LI T 0.8 mg/dL 04/14/2018 Comp Metabolic Foy468 AL BUMIN 4.2 g/dL 04/14/2018 Comp Metabolic Tgr841 TP RO 7.1 g/dL 04/14/2018 Comp Metabolic Vgb345 GL OB 2.9 g/dL 04/14/2018 Comp Metabolic Tcs236 A/ G Ratio 1.5 Ratio 04/14/2018 Comp Metabolic Tfh535 Os mo 283 mOsmo 04/14/2018 Cbc With Differential Ord2 WBC 4.83 K/ul 04/14/2018 Cbc With Differential Ord2 RBC 4.86 M/ul 04/14/2018 Cbc With Differential Ord2 HGB 14.9 g/dl 04/14/2018 Cbc With Differential Ord2 Neut% 60.7 % 04/14/2018 Cbc With Differential Ord2 HCT 43.9 % 04/14/2018 Cbc With Differential Ord2 MCV 90.3 fl 04/14/2018 Cbc With Differential Ord2 Lymph% 24.4 % 04/14/2018 Cbc With Differential Ord2 Vilas% 10.6 % 04/14/2018 Cbc With Differential Ord2 MCH 30.7 pg 04/14/2018 Cbc With Differential Ord2 MCHC 33.9 pg 04/14/2018 Cbc With Differential Ord2 Eos% 3.1 % 04/14/2018 Cbc With Differential Ord2 PLT 189 K/ul 04/14/2018 Cbc With Differential Ord2 Baso% 1.2 % 04/14/2018 Cbc With Differential Ord2 Neut ABS# 2.93 K/ul 04/14/2018 Cbc With Differential Ord2 RDW 14.6 % 04/14/2018 Cbc With Differential Ord2 Lymph ABS# 1.18 K/ul 04/14/2018 Cbc With Differential Ord2 Vilas ABS# 0.5 K/ul 04/14/2018 Cbc With Differential Ord2 Eos ABS# 0.2 K/ul 04/14/2018 Cbc With Differential Ord2 Baso ABS# 0.1 K/ul 04/14/2018 Free T4 Abp884 FREE T4 1.09 ng/dL 04/14/2018 Tsh Ord6 TSH (3rd IS) 2.36 uIU/mL 04/14/2018 Pt Wbl9899 PT 29.3 seconds 02/11/2018 Pt Nun8872 INR 2.8 02/11/2018 Pt Wjs1267 Low Intensity - 1.5-2.0 02/11/2018 Pt Fne0968 Mod intensity - 2.0-3.0 02/11/2018 Pt Kff5601 Hi intensity - 3.0-4.0 02/11/2018 Tsh Ord6 TSH (3rd IS) 2.34 uIU/mL 01/05/2018 Pt Vhv9829 PT 20.7 seconds 01/05/2018 Pt Fuz7021 INR 1.8 01/05/2018 Pt Hsy9703 Low Intensity - 1.5-2.0 01/05/2018 Pt Qlr5837 Mod intensity - 2.0-3.0 01/05/2018 Pt Mwp3018 Hi intensity - 3.0-4.0 01/05/2018 Cbc With Differential Ord2 WBC 4.66 K/ul 01/05/2018 Cbc With Differential Ord2 RBC 4.74 M/ul 01/05/2018 Cbc With Differential Ord2 HGB 14.5 g/dl 01/05/2018 Cbc With Differential Ord2 HCT 43.2 % 01/05/2018 Cbc With Differential Ord2 Neut% 56.7 % 01/05/2018 Cbc With Differential Ord2 MCV 91.1 fl 01/05/2018 Cbc With Differential Ord2 Lymph% 27.3 % 01/05/2018 Cbc With Differential Ord2 Vilas% 10.5 % 01/05/2018 Cbc With Differential Ord2 [...] 1.27 K/ul 01/05/2018 Cbc With Differential Ord2 [place] ABS# 0.5 K/ul 01/05/2018 Cbc With Differential Ord2 Eos ABS# 0.2 K/ul 01/05/2018 Cbc With Differential Ord2 Baso ABS# 0.1 K/ul 01/05/2018 %Hba1C Sdv224 % HbA1c 31691-6 6.0 % 01/05/2018 %Hba1C Fus210 Gluc Ave 126 mg/dL 01/05/2018 Free T4 Qcp430 FREE T4 1.05 ng/dL 01/05/2018 Lipid Ord30 CHOL 156 mg/dL 01/05/2018 Lipid Ord30 HDL 48.0 mg/dl 01/05/2018 Lipid Ord30 TRIG 207 mg/dL 01/05/2018 Lipid Ord30 LDL 67 mg/dL 01/05/2018 Lipid Ord30 C/HDL 3.3 Ratio 01/05/2018 Comp Metabolic Lkt136 NA 141 mEq/L 01/05/2018 Comp Metabolic Xej126 K 3.7 mEq/L 01/05/2018 Comp Metabolic Qpz430 CL 102 mEq/L 01/05/2018 Comp Metabolic Qvx349 CO2 29.0 mEq/L 01/05/2018 Comp Metabolic Dvm299 AN ION GAP 14 01/05/2018 Comp Metabolic Akx203 GL UCOSE 136 mg/dL 01/05/2018 Comp Metabolic Vuy312 Cr eat 1.0 mg/dL 01/05/2018 Comp Metabolic Lsn895 eG FR 61 ml/min/1.73m2 01/05 Comp Metabolic Yrc189 BUN 22 mg/dL 01/05/2018 Comp Metabolic Kwh833 B/ C Ratio 22.9 Ratio 01/05/2018 Comp Metabolic Lwk213 CA LCIUM 9.7 mg/dL 01/05/2018 Comp Metabolic Lyb550 AL K PHOS 57 U/L 01/05/2018 Comp Metabolic Viq707 T(SGOT) 21 U/L 01/05/2018 Comp Metabolic Krb273 AL T(SGPT) 19 U/L 01/05/2018 Comp Metabolic Lme006 BI LI T 0.9 mg/dL 01/05/2018 Comp Metabolic Kzy787 AL BUMIN 4.1 g/dL 01/05/2018 Comp Metabolic Dht210 TP RO 7.1 g/dL 01/05/2018 Comp Metabolic Utb815 GL OB 3.0 g/dL 01/05/2018 Comp Metabolic Kuk801 A/ G Ratio 1.4 Ratio 01/05/2018 Comp Metabolic Arw797 Os mo 287 mOsmo 01/05/2018 Pt Agd1646 PT 28.3 seconds 11/26/2017 Pt Ikk2484 INR 2.6 11/26/2017 Pt Nug5364 Low Intensity - 1.5-2.0 11/26/2017 Pt Mqz5658 Mod intensity - 2.0-3.0 11/26/2017 Pt Ekd6670 Hi intensity - 3.0-4.0 11/26/2017 Pt Rod7092 PT 36.5 seconds 11/19/2017 Pt Woq1739 INR 3.6 11/19/2017 Pt Yrk1993 Low Intensity - 1.5-2.0 11/19/2017 Pt Xwu7329 Mod intensity - 2.0-3.0 11/19/2017 Pt Kdq4985 Hi intensity - 3.0-4.0 11/19/2017 Pt Pbq0301 PT 22.9 seconds 10/15/2017 Pt Umr6390 INR 2.0 10/15/2017 Pt Sbs4984 Low Intensity - 1.5-2.0 10/15/2017 Pt Ptz5408 Mod intensity - 2.0-3.0 10/15/2017 Pt Sxf2603 Hi intensity - 3.0-4.0 10/15/2017 Pt Caj4906 PT 25.9 seconds 10/01/2017 Pt Wjm6031 INR 2.4 10/01/2017 Pt Kll2961 Low Intensity - 1.5-2.0 10/01/2017 Pt Gla1642 Mod intensity - 2.0-3.0 10/01/2017 Pt Zjf7599 Hi intensity - 3.0-4.0 10/01/2017 Pt Qvo7149 PT 20.6 seconds 09/24/2017 Pt Qyq0146 INR 1.8 09/24/2017 Pt Gat8227 Low Intensity - 1.5-2.0 09/24/2017 Pt Swc8755 Mod intensity - 2.0-3.0 09/24/2017 Pt Ulk4477 Hi intensity - 3.0-4.0 09/24/2017 Pt Loq3656 PT 21.0 seconds 09/15/2017 Pt Rco1776 INR 1.8 09/15/2017 Pt Prq5373 Low Intensity - 1.5-2.0 09/15/2017 Pt Xro5047 Mod intensity - 2.0-3.0 09/15/2017 Pt Iua1137 Hi intensity - 3.0-4.0 09/15/2017 Pt Mpj5950 PT 19.0 seconds 09/03/2017 Pt Kry2582 INR 1.6 09/03/2017 Pt Zfw9946 Low Intensity - 1.5-2.0 09/03/2017 Pt Hyj1164 Mod intensity - 2.0-3.0 09/03/2017 Pt Zdt0474 Hi intensity - 3.0-4.0 09/03/2017 Pt Zjn9916 PT 17.6 seconds 08/23/2017 Pt Fmq3145 INR 1.5 08/23/2017 Pt Vgk4219 Low Intensity - 1.5-2.0 08/23/2017 Pt Nrf0101 Mod intensity - 2.0-3.0 08/23/2017 Pt Gqj0773 Hi intensity - 3.0-4.0 08/23/2017 Pt Hck5975 PT 12.7 seconds 08/20/2017 Pt Xid1262 INR 1.0 08/20/2017 Pt Ssl0705 Low Intensity - 1.5-2.0 08/20/2017 Pt Upm2828 Mod intensity - 2.0-3.0 08/20/2017 Pt Clh1303 Hi intensity - 3.0-4.0 08/20/2017 Pt Osj8303 PT 12.9 seconds 08/17/2017 Pt Njm9158 INR 1.0 08/17/2017 Pt Urp5511 Low Intensity - 1.5-2.0 08/17/2017 Pt Aoo4466 Mod intensity - 2.0-3.0 08/17/2017 Pt Nkz4307 Hi intensity - 3.0-4.0 08/17/2017 Pt Fhy4899 PT 18.5 seconds 08/10/2017 Pt Jbe6701 INR 1.6 08/10/2017 Pt Vod3836 Low Intensity - 1.5-2.0 08/10/2017 Pt Weq9708 Mod intensity - 2.0-3.0 08/10/2017 Pt Mrc2600 Hi intensity - 3.0-4.0 08/10/2017 Pt Wut6686 PT 28.2 seconds 05/27/2017 Pt Fhh1215 INR 2.6 05/27/2017 Pt Hpi9382 Low Intensity - 1.5-2.0 05/27/2017 Pt Doy2824 Mod intensity - 2.0-3.0 05/27/2017 Pt Yyx3072 Hi intensity - 3.0-4.0 05/27/2017 Comp Metabolic Ibg805 NA 138 mEq/L 05/27/2017 Comp Metabolic Cgz328 K 4.1 mEq/L 05/27/2017 Comp Metabolic Vmh789 CL 101 mEq/L 05/27/2017 Comp Metabolic Bda618 CO2 31.0 mEq/L 05/27/2017 Comp Metabolic Ldy475 AN ION GAP 10 05/27/2017 Comp Metabolic Ucn387 GL UCOSE 117 mg/dL 05/27/2017 Comp Metabolic Cpt187 Cr eat 0.9 mg/dL 05/27/2017 Comp Metabolic Xby408 eG FR 62 ml/min/1.73m2 05/27 Comp Metabolic Jih430 BUN 25 mg/dL 05/27/2017 Comp Metabolic Qpd632 B/ C Ratio 26.6 Ratio 05/27/2017 Comp Metabolic Ozm361 CA LCIUM 9.5 mg/dL 05/27/2017 Comp Metabolic Hgc966 AL K PHOS 73 U/L 05/27/2017 Comp Metabolic Ecb057 T(SGOT) 18 U/L 05/27/2017 Comp Metabolic Tda961 AL T(SGPT) 12 U/L 05/27/2017 Comp Metabolic Luv422 BI LI T 0.5 mg/dL 05/27/2017 Comp Metabolic Zji650 AL BUMIN 4.1 g/dL 05/27/2017 Comp Metabolic Cav649 TP RO 7.1 g/dL 05/27/2017 Comp Metabolic Rua764 GL OB 3.0 g/dL 05/27/2017 Comp Metabolic Mth486 A/ G Ratio 1.3 Ratio 05/27/2017 Comp Metabolic Dmq124 Os mo 281 mOsmo 05/27/2017 Tsh Ord6 hTSH II 2.08 uIU/mL [...] 29.3 pg 05/27/2017 Cbc With Differential Ord2 Vilas% 8.1 % 05/27/2017 Cbc With Differential Ord2 MCHC 33.4 pg 05/27/2017 Cbc With Differential Ord2 Eos% 3.2 % 05/27/2017 Cbc With Differential Ord2 Baso% 1.1 % 05/27/2017 Cbc With Differential Ord2 PLT 239 K/ul 05/27/2017 Cbc With Differential Ord2 Neut ABS# 5.49 K/ul 05/27/2017 Cbc With Differential Ord2 RDW 14.4 % 05/27/2017 Cbc With Differential Ord2 Lymph ABS# 1.11 K/ul 05/27/2017 Cbc With Differential Ord2 Vilas ABS# 0.6 K/ul 05/27/2017 Cbc With Differential Ord2 Eos ABS# 0.2 K/ul 05/27/2017 Cbc With Differential Ord2 Baso ABS# 0.1 K/ul 05/27/2017 Lipid Ord30 CHOL 167 mg/dL 05/27/2017 Lipid Ord30 HDL 49.0 mg/dl 05/27/2017 Lipid Ord30 TRIG 347 mg/dL 05/27/2017 Lipid Ord30 LDL 49 mg/dL 05/27/2017 Lipid Ord30 C/HDL 3.4 Ratio 05/27/2017 Magnesium Ord90 Mag 1.4 mg/dL 05/27/2017 %Hba1C Czn145 % HbA1c 53937-5 5.9 % 05/27/2017 %Hba1C Uqf845 Gluc Ave 123 mg/dL 05/27/2017 Free T4 Kja010 FREE T4 0.91 ng/dL 05/27/2017 Pt Wsx7665 PT 29.2 seconds 04/16/2017 Pt Xlk8609 INR 2.7 04/16/2017 Pt Akl3011 Low Intensity - 1.5-2.0 04/16/2017 Pt Xdw2887 Mod intensity - 2.0-3.0 04/16/2017 Pt Tnl1795 Hi intensity - 3.0-4.0 04/16/2017 Pt Yit0158 PT 30.7 seconds 03/31/2017 Pt Mzl6182 INR 2.9 03/31/2017 Pt Fvp7064 Low Intensity - 1.5-2.0 03/31/2017 Pt Rdu9522 Mod intensity - 2.0-3.0 03/31/2017 Pt Ufz1276 Hi intensity - 3.0-4.0 03/31/2017 Pt Rrp6285 PT 21.3 seconds 03/26/2017 Pt Ohx3859 INR 1.9 03/26/2017 Pt Zoy4649 Low Intensity - 1.5-2.0 03/26/2017 Pt Ubs3788 Mod intensity - 2.0-3.0 03/26/2017 Pt Lxa2249 Hi intensity - 3.0-4.0 03/26/2017 Pt Ywn6483 PT 19.8 seconds 03/22/2017 Pt Klf1005 INR 1.7 03/22/2017 Pt Pnx6226 Low Intensity - 1.5-2.0 03/22/2017 Pt Zom3053 Mod intensity - 2.0-3.0 03/22/2017 Pt Qor5617 Hi intensity - 3.0-4.0 03/22/2017 Pt Czv4229 PT 15.6 seconds 03/19/2017 Pt Lgm5817 INR 1.3 03/19/2017 Pt Zkl7312 Low Intensity - 1.5-2.0 03/19/2017 Pt Avj4714 Mod intensity - 2.0-3.0 03/19/2017 Pt Gin7397 Hi intensity - 3.0-4.0 03/19/2017 Pt Vuh9593 PT 13.7 seconds 03/15/2017 Pt Ucf9107 INR 1.1 03/15/2017 Pt Ftm6518 Low Intensity - 1.5-2.0 03/15/2017 Pt Ujw9653 Mod intensity - 2.0-3.0 03/15/2017 Pt Oct7517 Hi intensity - 3.0-4.0 03/15/2017 Pt Dsz2098 PT 25.8 seconds 01/28/2017 Pt Ilo6799 INR 2.4 01/28/2017 Pt Tkt0242 Low Intensity - 1.5-2.0 01/28/2017 Pt Mhf2817 Mod intensity - 2.0-3.0 01/28/2017 Pt Hsp4766 Hi intensity - 3.0-4.0 01/28/2017 Pt Zeq6649 PT 26.8 seconds 10/23/2016 Pt Uko7920 INR 2.7 10/23/2016 Pt Sjw0226 Low Intensity - 1.5-2.0 10/23/2016 Pt Rxc0381 Mod intensity - 2.0-3.0 10/23/2016 Pt Yld7481 Hi intensity - 3.0-4.0 10/23/2016 %Hba1C Xbi968 % HbA1c 61855-4 6.4 % 10/23/2016 %Hba1C Mzs486 Gluc Ave 137 mg/dL 10/23/2016 Comp Metabolic Ujp373 NA 138 mEq/L 10/23/2016 Comp Metabolic Mrp016 K 3.4 mEq/L 10/23/2016 Comp Metabolic Dam586 CL 100 mEq/L 10/23/2016 Comp Metabolic Ell333 CO2 30.0 mEq/L 10/23/2016 Comp Metabolic Pxg555 AN ION GAP 11 10/23/2016 Comp Metabolic Wma208 GL UCOSE 139 mg/dL 10/23/2016 Comp Metabolic Qfw667 Cr eat 0.9 mg/dL 10/23/2016 Comp Metabolic Psu343 eG FR 62 ml/min/1.73m2 10/23 Comp Metabolic Fbk542 BUN 22 mg/dL 10/23/2016 Comp Metabolic Mfj640 B/ C Ratio 23.4 Ratio 10/23/2016 Comp Metabolic Fnh722 CA LCIUM 8.7 mg/dL 10/23/2016 Comp Metabolic Hiw937 AL K PHOS 66 U/L 10/23/2016 Comp Metabolic Xzm738 T(SGOT) 20 U/L 10/23/2016 Comp Metabolic Imh518 AL T(SGPT) 10 U/L 10/23/2016 Comp Metabolic Frz844 BI LI T 0.5 mg/dL 10/23/2016 Comp Metabolic Nwq401 AL BUMIN 3.5 g/dL 10/23/2016 Comp Metabolic Ffn455 TP RO 6.3 g/dL 10/23/2016 Comp Metabolic Gjy457 GL OB 2.8 g/dL 10/23/2016 Comp Metabolic Vce193 A/ G Ratio 1.3 Ratio 10/23/2016 Comp Metabolic Fvn762 Os mo 281 mOsmo 10/23/2016 Pt Lzm4053 PT 28.3 seconds 09/25/2016 Pt Lap7942 INR 2.8 09/25/2016 Pt Qky5461 Low Intensity - 1.5-2.0 09/25/2016 Pt Idh0983 Mod intensity - 2.0-3.0 09/25/2016 Pt Jpm2010 Hi intensity - 3.0-4.0 09/25/2016 Metabolic Ord15 [...] Metabolic Ord15 CALCIUM 8.8 mg/dL 09/25/2016 Pt Dnr5280 PT 30.6 seconds 09/11/2016 Pt Prh7114 INR 3.2 09/11/2016 Pt Itv9852 Low Intensity - 1.5-2.0 09/11/2016 Pt Zqh7776 Mod intensity - 2.0-3.0 09/11/2016 Pt Eah7396 Hi intensity - 3.0-4.0 09/11/2016 Comp Metabolic Zwk031 NA 138 mEq/L 09/11/2016 Comp Metabolic Ews529 K 4.4 mEq/L 09/11/2016 Comp Metabolic Avu716 CL 103 mEq/L 09/11/2016 Comp Metabolic Nhx186 CO2 31.0 mEq/L 09/11/2016 Comp Metabolic Cwu208 AN ION GAP 8 09/11/2016 Comp Metabolic Vcn246 GL UCOSE 146 mg/dL 09/11/2016 Comp Metabolic Zie658 Cr eat 1.0 mg/dL 09/11/2016 Comp Metabolic Otw977 eG FR 60 ml/min/1.73m2 09/11 Comp Metabolic Atp513 BUN 16 mg/dL 09/11/2016 Comp Metabolic Wma087 B/ C Ratio 16.5 Ratio 09/11/2016 Comp Metabolic Omr793 CA LCIUM 8.7 mg/dL 09/11/2016 Comp Metabolic Uvq949 AL K PHOS 52 U/L 09/11/2016 Comp Metabolic Evm676 T(SGOT) 19 U/L 09/11/2016 Comp Metabolic Lpk785 AL T(SGPT) 11 U/L 09/11/2016 Comp Metabolic Jwj990 BI LI T 0.7 mg/dL 09/11/2016 Comp Metabolic Lgm285 AL BUMIN 3.3 g/dL 09/11/2016 Comp Metabolic Igb261 TP RO 5.8 g/dL 09/11/2016 Comp Metabolic Hav942 GL OB 2.5 g/dL 09/11/2016 Comp Metabolic Awt057 A/ G Ratio 1.3 Ratio 09/11/2016 Comp Metabolic Drr935 Os mo 280 mOsmo 09/11/2016 Comp Metabolic Pkj343 NA 139 mEq/L 08/21/2016 Comp Metabolic Ltw017 K 4.1 mEq/L 08/21/2016 Comp Metabolic Uyd029 CL 102 mEq/L 08/21/2016 Comp Metabolic Qsh656 CO2 30.0 mEq/L 08/21/2016 Comp Metabolic Xwl209 AN ION GAP 11 08/21/2016 Comp Metabolic Wpw490 GL UCOSE 148 mg/dL 08/21/2016 Comp Metabolic Lfb983 Cr eat 1.0 mg/dL 08/21/2016 Comp Metabolic Opl856 eG FR 55 ml/min/1.73m2 08/21 Comp Metabolic Yaa330 BUN 21 mg/dL 08/21/2016 Comp Metabolic Hfw488 B/ C Ratio 20.2 Ratio 08/21/2016 Comp Metabolic Daj987 CA LCIUM 9.4 mg/dL 08/21/2016 Comp Metabolic Ygb207 AL K PHOS 63 U/L 08/21/2016 Comp Metabolic Fem025 T(SGOT) 23 U/L 08/21/2016 Comp Metabolic Wos001 AL T(SGPT) 16 U/L 08/21/2016 Comp Metabolic Lqy339 BI LI T 0.6 mg/dL 08/21/2016 Comp Metabolic Dol792 AL BUMIN 3.9 g/dL 08/21/2016 Comp Metabolic Cpr888 TP RO 6.8 g/dL 08/21/2016 Comp Metabolic Lzz372 GL OB 2.9 g/dL 08/21/2016 Comp Metabolic Qlr403 A/ G Ratio 1.4 Ratio 08/21/2016 Comp Metabolic Yho909 Os mo 283 mOsmo 08/21/2016 Magnesium Ord90 Mag 1.9 mg/dL 08/21/2016 C-Reactive Protein Qnt Crqnt CRP 0.1 mg/dl 08/21/2016 Sed Rate Ord21 ESR 16 mm/hr 08/21/2016 Pt Vzz6205 PT 27.2 seconds 08/21/2016 Pt Xjr6785 INR 2.7 08/21/2016 Pt Yps9214 Low Intensity - 1.5-2.0 08/21/2016 Pt Eju6275 Mod intensity - 2.0-3.0 08/21/2016 Pt Bee2463 Hi intensity - 3.0-4.0 08/21/2016 Pt Uaw6756 PT 25.9 seconds 06/17/2016 Pt Itp0402 INR 2.5 06/17/2016 Pt Muy6831 Low Intensity - 1.5-2.0 06/17/2016 Pt Vie3084 Mod intensity - 2.0-3.0 06/17/2016 Pt Lcq0620 Hi intensity - 3.0-4.0 06/17/2016 Free T4 Ost281 FREE T4 0.79 ng/dL 06/08/2016 Tsh Ord6 hTSH II 2.13 uIU/mL 06/08/2016 Pt Qcl5671 PT 36.1 seconds 06/08/2016 Pt Tot6171 INR 3.9 06/08/2016 Pt Mth5602 Low Intensity - 1.5-2.0 06/08/2016 Pt Rlv9339 Mod intensity - 2.0-3.0 06/08/2016 Pt Vvl3449 Hi intensity - 3.0-4.0 06/08/2016 Comp Metabolic Xxr544 NA 138 mEq/L 06/08/2016 Comp Metabolic Hos640 K 3.9 mEq/L 06/08/2016 Comp Metabolic Tmg513 CL 105 mEq/L 06/08/2016 Comp Metabolic Idk564 CO2 27.0 mEq/L 06/08/2016 Comp Metabolic Car792 AN ION GAP 10 06/08/2016 Comp Metabolic Yns830 GL UCOSE 127 mg/dL 06/08/2016 Comp Metabolic Ogx132 Cr eat 1.0 mg/dL 06/08/2016 Comp Metabolic Gzz781 eG FR 59 ml/min/1.73m2 06/08 Comp Metabolic Tri284 BUN 19 mg/dL 06/08/2016 Comp Metabolic Zss923 B/ C Ratio 19.4 Ratio 06/08/2016 Comp Metabolic Tzo487 CA LCIUM 9.2 mg/dL 06/08/2016 Comp Metabolic Ors223 AL K PHOS 77 U/L 06/08/2016 Comp Metabolic Rfc223 T(SGOT) 19 U/L 06/08/2016 Comp Metabolic Ano287 AL T(SGPT) 13 U/L 06/08/2016 Comp Metabolic Ihj862 BI LI T 0.5 mg/dL 06/08/2016 Comp Metabolic Zkd606 AL BUMIN 3.8 g/dL 06/08/2016 Comp Metabolic Qdu447 TP RO 6.6 g/dL 06/08/2016 Comp Metabolic Nec748 GL OB 2.8 g/dL 06/08/2016 Comp Metabolic Dyp797 A/ G Ratio 1.4 Ratio 06/08/2016 Comp Metabolic Odt799 Os mo 280 mOsmo 06/08/2016 Cbc With Differential Ord2 WBC 5.75 K/ul 06/08/2016 Cbc With Differential Ord2 RBC 4.59 M/ul 06/08/2016 Cbc With Differential Ord2 HGB 12.3 g/dl 06/08/2016 Cbc With Differential Ord2 HCT 37.1 % 06/08/2016 Cbc With Differential Ord2 Neut% 57.0 % 06/08/2016 Cbc With Differential Ord2 Lymph% 24.3 % 06/08/2016 Cbc With Differential Ord2 MCV 80.8 fl 06/08/2016 Cbc With Differential Ord2 Vil[place]% 12.0 % 06/08/2016 Cbc With Differential Ord2 [...] 1.40 K/ul 06/08/2016 Cbc With Differential Ord2 [place] ABS# 0.7 K/ul 06/08/2016 Cbc With Differential Ord2 Eos ABS# 0.3 K/ul 06/08/2016 Cbc With Differential Ord2 Baso ABS# 0.1 K/ul 06/08/2016 %Hba1C Jac995 % HbA1c 29622-5 6.2 % 06/08/2016 %Hba1C Ndq924 Gluc Ave 131 mg/dL 06/08/2016 Lipid Ord30 CHOL 149 mg/dL 06/08/2016 Lipid Ord30 HDL 46.0 mg/dl 06/08/2016 Lipid Ord30 TRIG 279 mg/dL 06/08/2016 Lipid Ord30 LDL 47 mg/dL 06/08/2016 Lipid Ord30 C/HDL 3.2 Ratio 06/08/2016 Pt Dzu6997 PT 30.9 seconds 02/12/2016 Pt Sqr5630 INR 3.2 02/12/2016 Pt Dyf0575 Low Intensity - 1.5-2.0 02/12/2016 Pt Xxh0514 Mod intensity - 2.0-3.0 02/12/2016 Pt Emg1736 Hi intensity - 3.0-4.0 02/12/2016 %Hba1C Xla339 % HbA1c 11217-2 6.4 % 09/27/2015 %Hba1C Hei886 Gluc Ave 137 mg/dL 09/27/2015 Pt Ynm1001 PT 26.2 seconds 09/27/2015 Pt Eqb9416 INR 2.5 09/27/2015 Pt Tio7525 Low Intensity - 1.5-2.0 09/27/2015 Pt Agp2795 Mod intensity - 2.0-3.0 09/27/2015 Pt Xmu7905 Hi intensity - 3.0-4.0 09/27/2015 Tsh Ord6 hTSH II 0.37 uIU/mL 09/27/2015 Free T4 Jzy636 FREE T4 1.24 ng/dL 09/27/2015 Pt Rne3280 PT 27.6 seconds 2015 Pt Duo9246 INR 2.7 2015 Pt Kbj8737 Low Intensity - 1.5-2.0 2015 Pt Rhi8266 Mod intensity - 2.0-3.0 2015 Pt Rpv6239 Hi intensity - 3.0-4.0 2015 %Hba1C Zwd873 % HbA1c 80566-8 6.1 % 06/11/2015 %Hba1C Mqy857 Gluc Ave 128 mg/dL 06/11/2015 Comp Metabolic Jeb191 NA 139 mEq/L 06/10/2015 Comp Metabolic Gda804 K 4.1 mEq/L 06/10/2015 Comp Metabolic Txs162 CL 105 mEq/L 06/10/2015 Comp Metabolic Yqj426 CO2 27.0 mEq/L 06/10/2015 Comp Metabolic Nat328 AN ION GAP 11 06/10/2015 Comp Metabolic Bri517 GL UCOSE 127 mg/dL 06/10/2015 Comp Metabolic Rkt721 Cr eat 1.0 mg/dL 06/10/2015 Comp Metabolic Aub087 eG FR 59 ml/min/1.73m2 06/10 Comp Metabolic Vsh348 BUN 21 mg/dL 06/10/2015 Comp Metabolic Rqa701 B/ C Ratio 21.2 Ratio 06/10/2015 Comp Metabolic Wyy222 CA LCIUM 9.2 mg/dL 06/10/2015 Comp Metabolic Bwr596 AL K PHOS 87 U/L 06/10/2015 Comp Metabolic Gjr906 T(SGOT) 20 U/L 06/10/2015 Comp Metabolic Kiq427 AL T(SGPT) 17 U/L 06/10/2015 Comp Metabolic Rly925 BI LI T 0.4 mg/dL 06/10/2015 Comp Metabolic Nrz635 AL BUMIN 4.1 g/dL 06/10/2015 Comp Metabolic Uwe287 TP RO 7.2 g/dL 06/10/2015 Comp Metabolic Mqt348 GL OB 3.1 g/dL 06/10/2015 Comp Metabolic Erg460 A/ G Ratio 1.3 Ratio 06/10/2015 Comp Metabolic Hky404 Os mo 282 mOsmo 06/10/2015 Cbc With Differential Ord2 WBC 6.4 K/uL [...] With Differential Ord2 RDW 15.8 % 06/10/2015 Tsh Ord6 hTSH II 0.86 uIU/mL 06/10/2015 Lipid Ord30 CHOL 161 mg/dL 06/10/2015 Lipid Ord30 HDL 49.0 mg/dl 06/10/2015 Lipid Ord30 TRIG 208 mg/dL 06/10/2015 Lipid Ord30 LDL 70 mg/dL 06/10/2015 Lipid Ord30 C/HDL 3.3 Ratio 06/10/2015 Pt Zte9825 PT 25.0 seconds 04/09/2015 Pt Sbc2790 INR 2.4 04/09/2015 Pt Hfu2937 Low Intensity - 1.5-2.0 04/09/2015 Pt Wov9026 Mod intensity - 2.0-3.0 04/09/2015 Pt Rbh5885 Hi intensity - 3.0-4.0 04/09/2015 Free T4 Erz168 FREE T4 1.05 ng/dL 01/22/2015 Pt Bww2570 PT 27.2 seconds 01/22/2015 Pt Qqp5280 INR 2.6 01/22/2015 Pt Utm5324 Low Intensity - 1.5-2.0 01/22/2015 Pt Aiv8086 Mod intensity - 2.0-3.0 01/22/2015 Pt Bvr7086 Hi intensity - 3.0-4.0 01/22/2015 Cbc With [...] Differential Ord2 RDW 15.2 % 01/22/2015 B12 Pdj655 B12 402.00 pg/ml 01/22/2015 Tsh Ord6 hTSH II 0.65 uIU/mL 01/22/2015 Lipid Ord30 CHOL 166 mg/dL 01/22/2015 Lipid Ord30 HDL 48.0 mg/dl 01/22/2015 Lipid Ord30 TRIG 264 mg/dL 01/22/2015 Lipid Ord30 LDL 65 mg/dL 01/22/2015 Lipid Ord30 C/HDL 3.5 Ratio 01/22/2015 Comp Metabolic Cps671 NA 138 mEq/L 01/22/2015 Comp Metabolic Jrw072 K 4.1 mEq/L 01/22/2015 Comp Metabolic Hxb011 CL 104 mEq/L 01/22/2015 Comp Metabolic Nwm802 CO2 29.0 mEq/L 01/22/2015 Comp Metabolic Cho213 AN ION GAP 9 01/22/2015 Comp Metabolic Edx133 GL UCOSE 106 mg/dL 01/22/2015 Comp Metabolic Wll926 Cr eat 0.9 mg/dL 01/22/2015 Comp Metabolic Txb676 eG FR 63 ml/min/1.73m2 01/22 Comp Metabolic Cwy469 BUN 21 mg/dL 01/22/2015 Comp Metabolic Div532 B/ C Ratio 22.3 Ratio 01/22/2015 Comp Metabolic Jup026 CA LCIUM 9.4 mg/dL 01/22/2015 Comp Metabolic Maw038 AL K PHOS 83 U/L 01/22/2015 Comp Metabolic Zwv690 T(SGOT) 23 U/L 01/22/2015 Comp Metabolic Svz962 AL T(SGPT) 18 U/L 01/22/2015 Comp Metabolic Vzk877 BI LI T 0.8 mg/dL 01/22/2015 Comp Metabolic Ghw631 AL BUMIN 4.2 g/dL 01/22/2015 Comp Metabolic Aed831 TP RO 7.3 g/dL 01/22/2015 Comp Metabolic Hpf302 GL OB 3.1 g/dL 01/22/2015 Comp Metabolic Fmg062 A/ G Ratio 1.4 Ratio 01/22/2015 Comp Metabolic Whp360 Os mo 279 mOsmo 01/22/2015 Review of [...] Date URINALYSIS NONAUTO W /O SCOPE CPT-4: 87123 03/05/2017 Vital Signs Date Vital 04/14/2018 Blood Pressure 1: 116/78 Code: 8480-6 BMI: 41.6 Code: 32863-7 Heart Rate 1: 72 bpm Height: 5'1" SpO2: 98% Weight: 220 lbs 01/18/2018 Blood Pressure 1: 132/74 Code: 8480-6 BMI: 43.5 Code: 57904-2 Heart Rate 1: 70 bpm Height: 5'1" SpO2: 97% Weight: 230 lbs 01/04/2018 Blood Pressure 1: 134/76 Code: 8480-6 BMI: 42.7 Code: 23559-4 Heart Rate 1: 83 bpm Height: 5'1" SpO2: 98% Weight: 226 lbs 09/23/2017 Blood Pressure 1: 124/76 Code: 8480-6 BMI: 42.3 Code: 42448-3 Heart Rate 1: 94 bpm Height: 5'1" SpO2: 96% Weight: 224 lbs 05/27/2017 Blood Pressure 1: 146/78 Code: 8480-6 BMI: 41.4 Code: 35036-2 Heart Rate 1: 85 bpm Height: 5'1" SpO2: 98% Weight: 219 lbs 02/24/2017 Blood Pressure 1: 138/66 Code: 8480-6 BMI: 41.4 Code: 89668-8 Heart Rate 1: 78 bpm Height: 5'1" SpO2: 97% Weight: 219 lbs 11/02/2016 Blood Pressure 1: 144/72 Code: 8480-6 BMI: 46.1 Code: 66634-1 Heart Rate 1: 78 bpm Height: 5'1" SpO2: 98% Weight: 244 lbs 09/30/2016 Blood Pressure 1: 130/76 Code: 8480-6 BMI: 45.0 Code: 70145-5 Heart Rate 1: 86 bpm Height: 5'1" SpO2: 98% Weight: 238 lbs 09/10/2016 Blood Pressure 1: 136/68 Code: 8480-6 BMI: 46.3 Code: 75958-1 Heart Rate 1: 83 bpm Height: 5'1" SpO2: 98% Weight: 245 lbs 08/20/2016 Blood Pressure 1: 142/78 Code: 8480-6 BMI: 45.3 Code: 14130-5 Heart Rate 1: 84 bpm Height: 5'1" SpO2: 99% Weight: 240 lbs 06/08/2016 Blood Pressure 1: 134/76 Code: 8480-6 BMI: 44.2 Code: 05993-5 Heart Rate 1: 86 bpm Height: 5'1" SpO2: 96% Weight: 234 lbs 04/02/2016 Blood Pressure 1: 142/70 Code: 8480-6 BMI: 44.6 Code: 55091-5 Heart Rate 1: 78 bpm Height: 5'1" SpO2: 97% Weight: 236 lbs 01/14/2016 Blood Pressure 1: 146/72 Code: 8480-6 BMI: 44.2 Code: 16581-4 Heart Rate 1: 86 bpm Height: 5'1" SpO2: 96% Weight: 234 lbs 10/02/2015 Blood Pressure 1: 158/76 Code: 8480-6 BMI: 44.2 Code: 71843-6 Heart Rate 1: 67 bpm Height: 5'1" SpO2: 97% Weight: 234 lbs 07/15/2015 Blood Pressure 1: 200/90 Code: 8480-6 Blood Pressure 1: 148/78 Code: 8480-6 BMI: 44.0 Code: 01208-8 Heart Rate 1: 89 bpm Height: 5'1" SpO2: 97% Weight: 233 lbs 06/10/2015 Blood Pressure 1: 140/82 Code: 8480-6 BMI: 44.0 Code: 03489-4 Heart Rate 1: 78 bpm Height: 5'1" [...] wearing crocs and there was a new [place]arag[place] on the floor: her foot didn't move [...] Encounters Encounter Performer Loca tion Codes Date ([id number]) [id number] EST. 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 P ATIENT, LEVEL III Diagnosis: Localized edema[ICD10: R60.0] Diagnosis: Gastro-esophageal reflux disease without esophagitis[ICD10: K21.9] Edna Almanza MD, [facility] CPT-4: 03119 01/18/2018 ([id number]) 01851 EST. P ATIENT, LEVEL IV Diagnosis: Gastro-esophageal reflux disease without esophagitis[ICD10: K21.9] Diagnosis: Localized edema[ICD10: R60.0] Diagnosis: Essential (primary) hypertension[ICD10: I10] Diagnosis: Hypothyroidism, unspecified[ICD10: E03.9] Diagnosis: Impaired fasting glucose[ICD10: R73.01] Edna Almanza MD, [facility] CPT-4: 62142 01/04/2018 ([id number]) 20651 EST. 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 PATIENT, LEVEL III Diagnosis: Pain in right hip[ICD10: M25.551] Nata Almanza MD, [facility] CPT-4: 82642 02/24/2017 ([id number]) 82008 EST. P ATIENT, LEVEL IV Diagnosis: Essential (primary) hypertension[ICD10: I10] Diagnosis: Localized edema[ICD10: R60.0] Diagnosis: Pain in right hip[ICD10: M25.551] Sarai Almanza MD, [facility] CPT-4: 78738 11/02/2016 ([id number]) 47478 EST. P ATIENT, LEVEL IV Diagnosis: Essential (primary) hypertension[ICD10: I10] Diagnosis: Localized edema[ICD10: R60.0] Sarai Almanza MD, [facility] CPT-4: 93722 09/30/2016 [id number] EST. PATIENT, LEVEL IV Diagnosis: Localized edema[ICD10: R60.0] Diagnosis: Pain in joints of left hand[ICD10: M25.542] Diagnosis: Pain in joints of right hand[ICD10: M25.541] Nata Almanza MD, [facility] CPT-4: 76658 09/10/2016 [id number] EST. PATIENT, LEVEL IV Diagnosis: Localized edema[ICD10: R60.0] Diagnosis: Pain in joints of left hand[ICD10: M25.542] Diagnosis: Pain in joints of right hand[ICD10: M25.541] Diagnosis: Other fatigue[ICD10: R53.83] Nata Almanza MD, [facility] CPT-4: 06970 08/20/2016 [id number] EST. PATIENT, LEVEL IV Diagnosis: Essential (primary) hypertension[ICD10: I10] Diagnosis: Other termite treater helper (current) drug therapy[ICD10: Z79.899] Diagnosis: Tinnitus, bilateral[ICD10: H93.13] Nata Almanza MD, [facility] CPT-4: 37455 06/08/2016 83595 EST. PATIENT, LEVEL IV Diagnosis: Other allergic rhinitis[ICD10: J30.89] Diagnosis: Acute laryngopharyngitis[ICD10: J06.0] Nata Almanza MD, [facility] CPT-4: 39792 04/02/2016 [id number] EST. PATIENT, LEVEL IV Diagnosis: Left upper quadrant pain[ICD10: R10.12] Nata Almanza MD, [facility] CPT-4: 23562 01/14/2016 93046 EST. PATIENT, LEVEL IV Diagnosis: Pain in left shoulder[ICD10: M25.512] Diagnosis: Body mass index (BMI) 40.0-44.9, adult[ICD10: Z68.41] [facility] CPT-4: 58353 10/02/2015 [id number] EST. PATIENT, LEVEL IV Diagnosis: Pain in left leg[ICD10: M79.605] Diagnosis: Other usp (current) drug therapy[ICD10: Z79.899] [facility] CPT-4: 79028 07/15/2015 ([id number]) 85922 EST. 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[ICD10: Z79.899] [facility] CPT-4: 31770 06/10/2015 ([id number]) OFFICE VISI T, NEW - LEVEL 4 Diagnosis: ESSENTIAL HYPERTENSION[ICD9: 401.9] Diagnosis: HYPOTHYROIDISM[ICD9: 244.9] Diagnosis: ENCNTR LONG-RX USE NEC[ICD9: V58.69] Diagnosis: HYPERLIPIDEMIA[ICD9: 272.4] Diagnosis: Vitamin B12 deficiency[ICD9: 266.2] Diagnosis: Status post gastric surgery[ICD9: V45.89] Diagnosis: Snoring[ICD9: 786.09] [facility] CPT-4: 14585 01/22/2015 Plan of Care Planned Activity Notes [...] A1C 04/14/2018 Appointment: Edna Douglas WPtel: [phone] (15 min) Moderate 04/14/2018 Patient Education: [...] to further attempt to reduce peripheral edema. ENTV-qjilogap-ubnyrlrx prilosec BID and carafate QID -discussed low spice, low acidic diet 01/18/2018 Appointment: Edna Douglas WPtel: [phone] [phone] (15 min) Moderate 01/18/2018 Patient [...] control. 01/04/2018 Appointment: Edna Douglas WPtel: [phone] [phone] (30 min) Complex 01/04/2018 Patient Education: Patient Medication Summary Completed 01/04/2018 Care Plan: SCREENINGMAMMOGRAPHYDIGITAL LOINC : 47597-8 Pending 01/04/2018 Visit Plan: Abdominal hernia - not able to be taken to surgery by local providers and pt has been seen at [facility] and that surgeon felt like [place] would be better served by Dr. Betancur [...] home. 09/23/2017 Appointment: [phone] (15 min) Moderate 09/23/2017 Patient Education: [...] medications. 05/27/2017 [facility]ment[facility] [phone] [phone] (30 min) Complex 05/27/2017 Patient [...] Appointment: Nata Hsu [facility]Ptel: [phone] [facility] [address] [facility] [place] (30 min) Complex 02/24/2017 [...] Chaney. 11/02/2016 Appointment: Sarai Almanza WPtel: [phone] [facility] (15 min) Moderate 11/02/2016 Patient Education: Patient [...] peripheral edema. 09/30/2016 Appointment: Sarai Almanza WPtel: [facility] (15 min) Moderate 09/30/2016 Patient Education: Patient [...] edema. 09/10/2016 Appointment: Nata Hsu WPtel: [phone] [facility] (30 min) Complex 09/10/2016 Patient Education: [...] edema. 08/20/2016 Appointment: Nata Hsu WPtel: [phone] [facility] (30 min) Complex 08/20/2016 Patient Education: Patient Medication Summary Completed 08/20/2016 Referral: Ot[facility]66[facility] Referral Initiated 07/02/2016 Visit Plan: Chronic Anticoagulant [...] 06/08/2016 Care Plan: Referral Order SNOMED-CT : [id number] Pending 06/08/2016 Visit Plan: URI - Pt [...] spray. 04/02/2016 Appointment: Nata Hsu WPtel: [phone] [facility] [place] (30 min) Complex 04/02/2016 Patient [...] acute pain 01/14/2016 Appointment: Ed[facility] Douglas [facility]el[facility] [phone] [phone] (30 min) Complex 01/14/2016 Patient Education: Patient Medication Summary Completed 01/14/2016 Patient Education: Obesity Completed 01/14/2016 Care Plan: BMI Above normal followup DAVID F-MGMT EDUC & TRAIN 1 PT Pending 10/24/2015 Care Plan: X-RAY EXAM OF SHOULDER LOINC : 92123-1 Pending 10/24/2015 Visit Plan: Left shoulder pain [...] Appointment: Edna Douglas WPtel: [facility] [phone] [place] (15 min) Moderate 10/02/2015 Patient Education: [...] Completed 06/10/2015 Appointment: [facility]el[phone] [facility] (15 min) Moderate 04/22/2015 Visit Plan: [...] fixation - planning occurring at [facility]. Snoring - Sleep apnea symptoms with [...] to medications. 01/22/2015 Appointment: Sarai Almanza WPtel: [address] [place], [place] [phone] [place] ([place]) New Patient 01/22/2015 Patient Education: Patient Medication Summary Completed 01/22/2015 Patient Education: Hypertension Completed 01/22/2015 [facility] Referral Initiated Instructions Comment . Hypertension - [...] control. Elevated blood sugars-check Hgb A1C . right upper quadra nt pain - [...] to further attempt to reduce peripheral edema. WADW-xjyywjto-lfxzuiyj prilosec BID and carafate QID -discussed low [...] fixation - planning occurring at [facility]. Snoring - Sleep apnea symptoms with [...] INR is between 2.0 and 3.5. . Abdominal hernia - not able to be taken to surgery by local providers and pt has been seen at [facility] and that surgeon felt like [place] would be better served by Dr. Betancur at [facility]. I have recommended a referral to [...]
--- OUTSIDE RECORDS SUMMARY | 2020-01-16 23:35 | XMS REPORT | CCD ---
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 Name Role Phone PP Unavailable CCM Unavailable Summary Purpose Interface Exchange Insurance Providers Payer name Policy type / Coverage type Covered constitution party ID Effective Begin Date Effective End Date WPS Medicare Part B Medicare Part B [id number] 2017 Unknown [employer] [place] Medicare Part B [id number] 2017 Unknown Family history Father Diagnosis Age At Onset Hyperlipidemia Unknown Heart Attack Unknown Mother Diagnosis Age At Onset Arthritis Unknown Social History Social History Element Codes Description Effective Dates Marital status Unknown M arried Nathan 09/30/2016 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 Number of children Unknown 3 01/22/[address]: 085754650 Never smoker 01/22/[address]: 258317375 Never drinks alcohol 01/22/2015 Allergies, Adverse Reactions, [...] ICD-9: 790.21 ICD-10: R73.01 Active 05/27/2017 Unknown alf (current) use of anticoagulants ICD-9: V58.61 ICD-10: [...] 780.79 ICD-10: R53.83 Active 08/20/2016 Unknown 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 ICD-9: V58.69 [...] cose ICD-9: 790.21 ICD-10: R73.01 05/27/2017 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 ICD-9: V58.61 ICD-10: [...] ICD-9: 780.79 ICD-10: R53.83 08/20/2016 Active 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 ICD-9: V58.69 [...] Fill Instructions Coumadin 4 mg tablet RxNorm: 098217 2 Tablet(s) daily 07/11/2018 02/05/2019 Active Generi c For:COUMADIN 4MG 07/22/2017 8:58:26 AM Coumadin 5 mg tablet RxNorm: 941519 Tablet(s) TAKE 1 TABLET BY MOUTH DIRE CTED 07/08/2018 01/03/2019 Ac tive Generic For:COUMADIN 5MG TAB 03/21/2018 9:13:00 AM Coumadin 1 mg tablet RxNorm: 008673 1 Tablet(s) PO daily 07/08/2018 08/06/2018 Active Coumadin 4 mg tablet RxNorm: 362786 Tablet(s) TAKE 1 TABLET BY MOUTH THREE T IMES PER WEEK (WEDNESDAY, WEDNESDAY AND WEDNESDAY) 07/08/2018 07/10/2018 Inactive Gene andre For:COUMADIN 4MG 07/22/2017 8:58:26 AM venlafaxine ER 75 mg capsule,extended release 24 hr RxNorm: 098250 Capsule(s) TAKE 1 CAPSULE BY MOUTH ONCE DAILY 06/23/2018 06/17/2019 Active Generic For:*EFFEXOR XR 75MG 06/19/2017 12:23:45 PM sodium bicarbonate 6 50 mg tablet RxNorm: 344563 Tablet(s) TAKE 2 TABL ETS BY MOUTH TWICE DAILY 06/23/2018 12/19/2018 Active 12/20/2017 9:10:59 AM Coumadin 1 mg tablet RxNorm: 537444 1 Tablet(s) PO daily 06/17/2018 07/07/2018 Inactive Coumadin 1 mg tablet RxNorm: 015748 1 Tablet(s) PO daily 06/17/2018 06/16/2018 Inactive clonazepam 0.5 mg ta blet RxNorm: 936011 1 Tablet(s) PO BID 06/08/2018 11/04/2018 Active Carafate 1 gram tablet RxNorm: 381957 TAKE ONE TABLET BY MOUTH BEFORE MEALS AN D AT BEDTIME 05/18/2018 07/12/2018 Active Generic For:CARAFATE 1GM 8:38:28 AM Synthroid 137 mcg ta blet RxNorm: 772716 TAKE 1 TABLET BY MOUT H ONCE DAILY 05/18/2018 11/13/2018 Ac tive Generic For:SYNTHROID 137MCG TAB 2017 8:57:54 AM spironolactone 25 mg tablet RxNorm: 695095 TAKE 1 TABLET BY MOUT H EVERY DAY 05/18/2018 05/12/2019 Ac tive Generic For:*ALDACTONE 25MG 05/18/2018 8:57:50 AM allopurinol 300 mg t ablet RxNorm: 822901 TAKE 1 TABLET BY MOUT H ONCE DAILY. 04/18/2018 10/14/2018 Ac tive Generic For:ZYLOPRIM 300 MG TABLET 03/22 9:13:47 AM Lasix 20 mg tablet RxNorm: 036365 TAKE ONE TABLET BY MOUTH DAILY 04/18/2018 08/15/2018 Ac tive Generic For:LASIX 20MG 04/18/2018 9:13: 50 AM Carafate 1 gram tablet RxNorm: 946268 TAKE ONE TABLET BY MOUTH BEFORE MEALS AN D AT BEDTIME 04/18/2018 05/17/2018 Inactive Generic For:CARAFATE 1GM 1 9:32:51 AM Coumadin 5 mg tablet RxNorm: 684036 TAKE 1 TABLET BY MOUTH DIRECTED 03/21/2018 07/07/2018 In active Generic For:COUMADIN 5MG TAB 03/21/2018 9:13:00 AM Carafate 1 gram tablet RxNorm: 775719 TAKE ONE TABLET BY MOUTH BEFORE MEALS AN D AT BEDTIME 03/21/2018 04/17/2018 Inactive Generic For:CARAFATE 1GM 1 9:14:24 AM Carafate 1 gram tablet RxNorm: 829103 1 Tablet(s) PO AC & HS 02/17/2018 03/20/2018 Inactive atenolol 100 mg tablet RxNorm: 392393 1 Tablet(s) PO daily 02/04/2018 09/01/2018 Active atenolol 50 mg tablet RxNorm: 098535 1 Tablet(s) PO daily 02/03/2018 02/03/2018 Inactive omeprazole 20 mg cap sean,delayed release RxNorm: 837563 1 Capsule(s) BID 01/21/2018 01/15/2019 Ac tive Generic For:PRILOSEC 20MG 07/22/2017 8:5 8:20 AM Carafate 1 gram tablet RxNorm: 806738 1 Tablet(s) PO AC & HS 01/21/2018 02/16/2018 Inactive Carafate 1 gram tablet RxNorm: 098729 1 Tablet(s) PO AC & HS 01/18/2018 01/20/2018 Inactive Carafate 1 gram tablet RxNorm: 526083 1 Tablet(s) PO AC & HS 01/18/2018 02/27/2018 Inactive Carafate 1 gram tablet RxNorm: 275618 1 Tablet(s) PO AC & HS TAKE ONE TABLET B Y MOUTH TWICE DAILY 01/18/2018 05/17/2018 Inactive Generic For:CARAFATE 1GM 0 12/20/2017 9:10:56 AM omeprazole 20 mg cap sean,delayed release RxNorm: 892793 Capsule(s) TAKE 1 CAP SEAN BY MOUTH EVERY DAY 01/17/2018 01/20/2018 Inactive Generic For:PRILOSEC 20MG 0 07/22/2017 8:58:20 AM omeprazole 20 mg cap sean,delayed release RxNorm: 487956 Capsule(s) TAKE 1 CAP SEAN BY MOUTH EVERY DAY 01/14/2018 01/16/2018 Inactive Generic For:PRILOSEC 20MG 07/22/2017 8:58:20 AM Plavix 75 mg tablet RxNorm: 209623 1 Tablet(s) PO daily 01/07/2018 07/05/2018 Inactive clonazepam 0.5 mg ta blet RxNorm: 942352 1 Tablet(s) PO BID 01/07/2018 06/05/2018 Inactive Carafate 1 gram tablet RxNorm: 417618 1 Tablet(s) PO AC & HS 01/04/2018 01/17/2018 Inactive Lasix 20 mg tablet RxNorm: 387848 TAKE ONE TABLET BY MOUTH DAILY 12/20/2017 04/17/2018 In active Generic For:LASIX 20MG 12/20/2017 9:11: 03 AM sodium bicarbonate 6 50 mg tablet RxNorm: 225434 TAKE 2 TABLETS BY JAVON TH TWICE DAILY 12/20/2017 06/17/2018 In active 12/20/2017 9:10:59 AM Carafate 1 gram tablet RxNorm: 740790 TAKE ONE TABLET BY MOUTH TWICE DAILY 12/20/2017 01/17/2018 In active Generic For:CARAFATE 1GM 12/20/2017 9:1 0:56 AM Synthroid 137 mcg ta blet RxNorm: 502221 TAKE 1 TABLET BY MOUT H ONCE DAILY 11/19/2017 05/17/2018 In active Generic For:SYNTHROID 137MCG TAB 2017 8:58:04 AM Detrol LA 4 mg capsu le,extended release RxNorm: 957413 TAKE 1 CAPSULE BY JAVON TH ONCE DAILY 10/20/2017 04/13/2018 Inactive Generic For:DETROL LA 4MG C AP 10/20/2017 9:01:56 AM allopurinol 300 mg t ablet RxNorm: 788400 TAKE 1 TABLET BY MOUT H ONCE DAILY. 10/20/2017 04/17/2018 In active Generic For:ZYLOPRIM 300 MG TABLET 07/2017 9:01:59 AM Coumadin 5 mg tablet RxNorm: 885889 1 Tablet(s) PO UD 10/01/2017 03/20/2018 Inactive cyclobenzaprine 5 mg tablet RxNorm: 884966 1 Tablet(s) PO TID as needed myscle spasm 09/23/2017 10/12/2017 Inactive Lipitor 40 mg tablet RxNorm: 393720 TAKE 1 TABLET BY MOUTH ONCE DAILY 09/20/2017 09/14/2018 Ac tive Generic For:LIPITOR 40MG 09/20/2017 8:5 6:04 AM atenolol 100 mg tablet RxNorm: 666526 1 Tablet(s) PO daily 08/30/2017 02/03/2018 Inactive atenolol 50 mg tablet RxNorm: 559944 1 Tablet(s) PO daily 08/30/2017 08/30/2017 Inactive Lovenox 30 mg/0.3 mL subcutaneous syringe RxNorm: 643892 0.3 Milliliter(s) SQ Q12H 08/24/2017 09/06/2017 In active Lasix 20 mg tablet RxNorm: 966497 TAKE ONE TABLET BY MOUTH DAILY 08/23/2017 12/19/2017 In active Generic For:LASIX 20MG 08/21/2017 9:04: 27 AM Synthroid 137 mcg ta blet RxNorm: 238780 TAKE 1 TABLET BY MOUT H ONCE DAILY 08/23/2017 11/18/2017 In active Generic For:SYNTHROID 137MCG TAB 2017 9:04:30 AM Lovenox 30 mg/0.3 mL subcutaneous syringe RxNorm: 585435 0.3 Milliliter(s) SQ Q12H 08/10/2017 08/23/2017 In active clonazepam 0.5 mg ta blet RxNorm: 302898 1 Tablet(s) PO BID 08/04/2017 12/30/2017 Inactive Coumadin 4 mg tablet RxNorm: 391465 TAKE 1 TABLET BY MOUTH THREE TIMES PER W MENOMINEE (WEDNESDAY, WEDNESDAY AND WEDNESDAY) 07/22/2017 02/16/2018 Inactive Generic For:COUMADIN 4MG 07/22/2017 8:58:26 AM omeprazole 20 mg cap sean,delayed release RxNorm: 825235 TAKE 1 CAPSULE BY JAVON TH EVERY DAY 07/22/2017 01/13/2018 Inactive Generic For:PRILOSEC 20MG 07/22/2017 8: 58:20 AM Coumadin 4 mg tablet RxNorm: 212597 TAKE 1 TABLET BY MOUTH THREE TIMES PER W MENOMINEE (WEDNESDAY, WEDNESDAY AND WEDNESDAY) 07/22/2017 02/16/2018 Inactive Generic For:COUMADIN 4MG 07/22/2017 8:58:26 AM sodium bicarbonate 6 50 mg tablet RxNorm: 734315 TAKE 2 TABLETS BY JAVON TH TWICE DAILY 06/22/2017 12/18/2017 In active 06/19/2017 12:23:30 PM venlafaxine ER 75 mg capsule,extended release 24 hr RxNorm: 122524 TAKE 1 CAPSULE BY MOUTH ONCE DAILY 06/22/2017 06/16/2018 Inactive Generic For:*EFFEXOR XR 75M G 06/19/2017 12:23:45 PM Coumadin 5 mg tablet RxNorm: 641130 1 Tablet(s) PO UD 06/01/2017 09/30/2017 Inactive Keflex 500 mg capsule RxNorm: 354440 1 Capsule(s) PO TID 05/27/2017 06/02/2017 Inactive Synthroid 137 mcg ta blet RxNorm: 362851 TAKE 1 TABLET BY MOUT H ONCE DAILY 05/24/2017 08/21/2017 In active Generic For:SYNTHROID 137MCG TAB 2016 8:55:59 AM Carafate 1 gram tablet RxNorm: 028657 TAKE ONE TABLET BY MOUTH TWICE DAILY 05/24/2017 12/19/2017 In active Generic For:CARAFATE 1GM 05/24/2017 8:5 5:54 AM spironolactone 25 mg tablet RxNorm: 441475 1 Tablet(s) PO daily 05/24/2017 05/17/2018 Inactive Detrol LA 4 mg capsu le,extended release RxNorm: 512490 1 Capsule(s) PO daily TAKE 1 CAPSULE BY MOUTH ONCE DAILY 05/10/2017 10/19/2017 Inactive Generic For:DETROL LA 4MG CAP 02/19/2017 2:36:00 PM Lasix 20 mg tablet RxNorm: 050657 TAKE ONE TABLET BY MOUTH DAILY 04/23/2017 08/20/2017 In active Generic For:LASIX 20MG 04/23/2017 9:04: 01 AM Coumadin 4 mg tablet RxNorm: 517625 TAKE 1 TABLET BY MOUTH THREE TIMES PER W MENOMINEE (WEDNESDAY, WEDNESDAY AND WEDNESDAY) 04/23/2017 07/21/2017 Inactive Generic For:COUMADIN 4MG 04/23/2017 9:04:05 AM allopurinol 300 mg t ablet RxNorm: 507961 TAKE 1 TABLET BY MOUT H ONCE DAILY. 04/23/2017 10/19/2017 In active Generic For:ZYLOPRIM 300 MG TABLET 08/2016 9:03:57 AM potassium chloride 2 0 mEq/15 mL oral liquid RxNorm: 372534 Milliliter(s) 30 Milliliter(s) (40mEq) PO daily 03/24/2017 07/21/2017 Inactive Lovenox 30 mg/0.3 mL subcutaneous syringe RxNorm: 853144 0.3 Milliliter(s) SQ Q12H 03/22/2017 03/26/2017 In active Lovenox 30 mg/0.3 mL subcutaneous syringe RxNorm: 555660 0.3 Milliliter(s) SQ Q12H 03/19/2017 03/20/2017 In active Lovenox 30 mg/0.3 mL subcutaneous syringe RxNorm: 180136 0.3 Milliliter(s) SQ Q12H 03/16/2017 03/18/2017 In active clonazepam 0.5 mg ta blet RxNorm: 972685 1 Tablet(s) PO BID 03/02/2017 07/28/2017 Inactive Lovenox 30 mg/0.3 mL subcutaneous syringe RxNorm: 947981 1 injection SQ BID do NOT take the night time dose the day before surgery, or the morning dose the day of surgery 03/01/2017 03/07/2017 Inactive Lovenox 30 mg/0.3 mL subcutaneous syringe RxNorm: 101828 1 injection SQ BID 03/01/2017 02/28/2017 In active Detrol LA 4 mg capsu le,extended release RxNorm: 317068 TAKE 1 CAPSULE BY JAVON TH ONCE DAILY 02/19/2017 05/09/2017 Inactive Generic For:DETROL LA 4MG C AP 02/19/2017 2:36:00 PM hydrocodone 5 mg-humberto taminophen 325 mg tablet RxNorm: 479421 1-2 Tablet(s) PO Q6 P RN 02/04/2017 No Stop Date Active Zetia 10 mg tablet RxNorm: 914829 TAKE 1 TABLET BY MOUTH DAILY 01/25/2017 04/13/2018 Inactive 01/23/2017 9:03:48 AM omeprazole 20 mg cap sean,delayed release RxNorm: 937304 TAKE 1 CAPSULE BY JAVON TH EVERY DAY 01/25/2017 07/21/2017 Inactive Generic For:PRILOSEC 20MG 01/23/2017 9: 03:45 AM Coumadin 4 mg tablet RxNorm: 793625 TAKE 1 TABLET BY MOUTH THREE TIMES PER W MENOMINEE (WEDNESDAY, WEDNESDAY AND WEDNESDAY) 01/25/2017 04/22/2017 Inactive Generic For:COUMADIN 4MG 01/23/2017 9:03:51 AM sodium bicarbonate 6 50 mg tablet RxNorm: 721388 TAKE 2 TABLETS BY JAVON TH TWICE DAILY 12/24/2016 06/21/2017 In active 12/24/2016 9:09:27 AM Lasix 20 mg tablet RxNorm: 869421 1 Tablet(s) PO daily 12/24/2016 04/22/2017 Inactive Synthroid 137 mcg ta blet RxNorm: 748608 TAKE 1 TABLET BY MOUT H ONCE DAILY 11/24/2016 05/22/2017 In active Generic For:SYNTHROID 137MCG TAB 2016 9:04:37 AM Coumadin 4 mg tablet RxNorm: 342851 TAKE 1 TABLET BY MOUTH THREE TIMES PER W MENOMINEE (WEDNESDAY, WEDNESDAY AND WEDNESDAY) 11/24/2016 01/22/2017 Inactive Generic For:COUMADIN 4MG 11/24/2016 9:04:41 AM hydrocodone 5 mg-humberto taminophen 325 mg tablet RxNorm: 354678 1-2 Tablet(s) PO Q6 P RN 11/17/2016 02/03/2017 In active Carafate 1 gram tablet RxNorm: 132552 TAKE ONE TABLET BY MOUTH TWICE DAILY 10/27/2016 05/23/2017 In active Generic For:CARAFATE 1GM 10/26/2016 8:3 9:42 AM allopurinol 300 mg t ablet RxNorm: 300905 Tablet(s) TAKE 1 TABL ET BY MOUTH ONCE DAILY. 10/26/2016 04/22/2017 Inactive Lipitor 40 mg tablet RxNorm: 420554 1 Tablet(s) PO daily 09/25/2016 09/19/2017 Inactive Coumadin 4 mg tablet RxNorm: 176738 TAKE 1 TABLET BY MOUTH THREE TIMES PER W MENOMINEE (WEDNESDAY, WEDNESDAY AND WEDNESDAY) 09/25/2016 11/23/2016 Inactive Generic For:COUMADIN 4MG 09/25/2016 8:55:58 AM Zetia 10 mg tablet RxNorm: 524969 1 Tablet(s) PO daily 09/25/2016 01/22/2017 Inactive gave 1 month of samples clonazepam 0.5 mg ta blet RxNorm: 661710 1 Tablet(s) PO BID 09/21/2016 02/16/2017 Inactive Lasix 20 mg tablet RxNorm: 880092 1 Tablet(s) PO daily 09/15/2016 12/23/2016 Inactive potassium chloride 2 0 mEq/15 mL oral liquid RxNorm: 770711 Milliliter(s) 30 Milliliter(s) (40mEq) PO daily 09/15/2016 01/12/2017 Inactive Lasix 20 mg tablet RxNorm: 429437 2 Tablet(s) PO daily 09/10/2016 09/12/2016 Inactive Lasix 20 mg tablet RxNorm: 734581 1 Tablet(s) PO daily 08/28/2016 08/30/2016 Inactive Lasix 20 mg tablet RxNorm: 949077 1 Tablet(s) PO daily 08/20/2016 08/22/2016 Inactive Detrol LA 4 mg capsu le,extended release RxNorm: 501375 TAKE 1 CAPSULE BY JAVON TH ONCE DAILY 07/27/2016 02/18/2017 Inactive Generic For:DETROL LA 4MG C AP 07/27/2016 9:08:27 AM Coumadin 4 mg tablet RxNorm: 604578 1 Tablet(s) PO 3 x week e and sun 07/27/2016 09/24/2016 In active omeprazole 20 mg cap sean,delayed release RxNorm: 442179 Capsule(s) PO TAKE 1 CAPSULE BY MOUTH ONCE DAILY 07/27/2016 01/22/2017 Inactive venlafaxine ER 75 mg capsule,extended release 24 hr RxNorm: 142103 1 Capsule(s) PO daily 06/29/2016 06/21/2017 Inactive sodium bicarbonate 6 50 mg tablet RxNorm: 648636 TAKE 2 TABLETS BY JAVON TH TWICE DAILY 06/29/2016 12/23/2016 In active 06/27/2016 9:05:39 AM Coumadin 4 mg tablet RxNorm: 777868 1 Tablet(s) PO 3 x week e and sun 06/09/2016 06/08/2016 In active Coumadin 4 mg tablet RxNorm: 905729 1 Tablet(s) PO 3 x week wed and sun 06/09/2016 07/26/2016 In active Zetia 10 mg tablet RxNorm: 429582 1 Tablet(s) PO daily 06/09/2016 06/08/2016 Inactive gave 1 month of samples Zetia 10 mg tablet RxNorm: 307457 1 Tablet(s) PO daily 06/09/2016 09/24/2016 Inactive gave 1 month of samples Effexor 75 mg tablet RxNorm: 590528 1 Tablet(s) PO daily 06/08/2016 06/28/2016 Inactive spironolactone 25 mg tablet RxNorm: 759790 1 Tablet(s) PO daily 06/08/2016 05/23/2017 Inactive Synthroid 137 mcg ta blet RxNorm: 304132 1 Tablet(s) PO daily 05/07/2016 11/02/2016 Inactive allopurinol 300 mg t ablet RxNorm: 214784 Tablet(s) TAKE 1 TABL ET BY MOUTH ONCE DAILY. 04/28/2016 10/24/2016 Inactive clonazepam 0.5 mg ta blet RxNorm: 786078 1 Tablet(s) PO BID 04/20/2016 09/15/2016 Inactive Flonase Allergy Reli ef 50 mcg/actuation nasal spray,suspension RxNorm: 0640043 1 [place] NASAL BID 04/02/2016 No Stop Date Active Zithromax Z-Thomas 250 mg tablet RxNorm: 484540 Tablet(s) PO 04/02/2016 08/27/2016 Inactive cetirizine 10 mg tablet RxNorm: 5262918 1 Tablet(s) PO daily 04/02/2016 05/01/2016 Inactive Carafate 1 gram tablet RxNorm: 408124 Tablet(s) TAKE 1 TABLET TWICE A DAY FOR 30 DAYS 03/30/2016 10/25/2016 Inactive Generic For:CARAFATE 1GM 02/08/2015 12:3 6:39 PM Plavix 75 mg tablet RxNorm: 138962 1 Tablet(s) PO daily 03/11/2016 09/06/2016 Inactive sodium bicarbonate 6 50 mg tablet RxNorm: 435344 Tablet(s) 2 Tablet(s) PO BID 02/28/2016 06/26/2016 In active omeprazole 20 mg cap sean,delayed release RxNorm: 282689 Capsule(s) PO TAKE 1 CAPSULE BY MOUTH ONCE DAILY 01/31/2016 07/26/2016 Inactive Fish Oil 1,000 mg ca psule RxNorm: 1 Capsule(s) PO BID 01/14/2016 No Stop Date Active Synthroid 137 mcg ta blet RxNorm: 308216 1 Tablet(s) PO daily 01/14/2016 05/06/2016 Inactive Detrol LA 4 mg capsu le,extended release RxNorm: 372809 TAKE 1 CAPSULE BY JAVON TH ONCE DAILY 12/30/2015 07/26/2016 Inactive Generic For:DETROL LA 4MG C AP 12/30/2015 9:11:01 AM potassium chloride 2 0 mEq/15 mL oral liquid RxNorm: 396759 Milliliter(s) 30 Milliliter(s) (40mEq) PO daily 12/02/2015 03/30/2016 Inactive sodium bicarbonate 6 50 mg tablet RxNorm: 970879 Tablet(s) 2 Tablet(s) PO BID 10/31/2015 02/27/2016 In active Lipitor 40 mg tablet RxNorm: 499360 1 Tablet(s) PO daily 10/09/2015 09/24/2016 Inactive sodium bicarbonate 6 50 mg tablet RxNorm: 555196 2 Tablet(s) PO BID 10/01/2015 10/30/2015 Inactive allopurinol 300 mg t ablet RxNorm: 191548 TAKE 1 TABLET BY MOUT H ONCE DAILY. 10/01/2015 04/27/2016 In active Generic For:ZYLOPRIM 300 MG TABLET 09/19 9:21:15 AM clonazepam 0.5 mg ta blet RxNorm: 348617 1 Tablet(s) PO BID 09/30/2015 04/19/2016 Inactive Coumadin 5 mg tablet RxNorm: 429526 1 Tablet(s) PO daily 09/27/2015 05/31/2017 Inactive Generic For:COUMADIN 5MG TAB N O T I C E PRESCRIPTION PREVIOUSLY AUTHORIZED BY DOCTOR:BOBBY ZULETA Synthroid 125 mcg ta blet RxNorm: 128892 1 Tablet(s) PO daily 09/27/2015 09/26/2015 Inactive Synthroid 125 mcg ta blet RxNorm: 405671 1 Tablet(s) PO daily 09/27/2015 01/13/2016 Inactive Carafate 1 gram tablet RxNorm: 450585 Tablet(s) TAKE 1 TABLET TWICE A DAY FOR 30 DAYS 09/02/2015 03/29/2016 Inactive Generic For:CARAFATE 1GM 02/08/2015 12:3 6:39 PM sodium bicarbonate 6 50 mg tablet RxNorm: 853918 2 Tablet(s) PO BID 09/02/2015 09/30/2015 Inactive Prilosec 20 mg capsu le,delayed release RxNorm: 652350 TAKE 1 CAPSULE BY JAVON TH ONCE DAILY 08/02/2015 01/28/2016 Inactive Generic For:PRILOSEC 20MG 08/02/2015 10:03:09 AM N O T I C E PRESCRIPTION PREVIOUSLY AUTHORIZED BY DOCTOR:BOBBY ZULETA Zyrtec 10 mg capsule RxNorm: 6708151 1 Capsule(s) PO daily 07/15/2015 08/13/2015 Inactive Keflex 500 mg capsule RxNorm: 568817 1 Capsule(s) PO TID 07/15/2015 07/21/2015 Inactive cetirizine 10 mg cap sean RxNorm: 4586361 1 Capsule(s) PO daily 07/15/2015 08/13/2015 Inactive hydrocodone 5 mg-humberto taminophen 325 mg tablet RxNorm: 639900 1-2 Tablet(s) PO Q6 P RN 06/10/2015 11/16/2016 In active sodium bicarbonate 6 50 mg tablet RxNorm: 798300 2 Tablet(s) PO BID 06/03/2015 08/31/2015 Inactive Detrol LA 4 mg capsu le,extended release RxNorm: 948790 TAKE 1 CAPSULE BY JAVON TH ONCE DAILY 06/03/2015 12/29/2015 Inactive Generic For:DETROL LA 4MG C AP N O T I C E PRESCRIPTION PREVIOUSLY AUTHORIZED BY DOCTOR:BOBBY ZULETA atenolol 50 mg tablet RxNorm: 766605 1 Tablet(s) PO daily TAKE 1 TABLET BY MO UTH DAILY 05/07/2015 08/23/2017 Inactive Generic For:TENORMIN 50MG 05/04/2015 9:07:22 AM spironolactone 25 mg tablet RxNorm: 178547 1 Tablet(s) PO daily 05/06/2015 06/07/2016 Inactive venlafaxine ER 75 mg capsule,extended release 24 hr RxNorm: 519134 1 Capsule(s) PO daily 05/04/2015 06/28/2016 Inactive atenolol 50 mg tablet RxNorm: 714273 TAKE 1 TABLET BY MOUTH DAILY 05/04/2015 05/06/2015 Inactive Generic For:TENORMIN 50MG 05/04/2015 9: 07:22 AM Synthroid 150 mcg ta blet RxNorm: 140197 TAKE 1 TABLET BY MOUT H ONCE DAILY. 04/05/2015 09/26/2015 In active Generic For:SYNTHROID 150MCG TAB 2014 4:45:40 PM N O T I C E PRESCRIPTION PREVIOUSLY AUTHORIZED BY DOCTOR:BOBBY ZULETA Effexor 75 mg tablet RxNorm: 619443 1 Tablet(s) PO daily 04/05/2015 07/03/2015 Inactive Coumadin 5 mg tablet RxNorm: 713478 TAKE 1 AND 1/2 TABLETS BY MOUTH ONCE MYRANDA LY 04/04/2015 09/26/2015 In active Generic For:COUMADIN 5MG TAB N O T I C E PRESCRIPTION PREVIOUSLY AUTHORIZED BY DOCTOR:BOBBY ZULETA clonazepam 0.5 mg ta blet RxNorm: 689434 1 Tablet(s) PO BID 03/13/2015 11/05/2015 Inactive sodium bicarbonate 6 50 mg tablet RxNorm: 218579 2 Tablet(s) PO BID 03/08/2015 06/02/2015 Inactive allopurinol 300 mg t ablet RxNorm: 226892 TAKE 1 TABLET BY MOUT H ONCE DAILY. 03/05/2015 09/30/2015 In active N O T I C E PRESCRIPTION PREVIOUSLY A UTHORIZED BY DOCTOR:BOBBY ZULETA Plavix 75 mg tablet RxNorm: 164866 1 Tablet(s) PO daily 02/12/2015 09/09/2015 Inactive clonazepam 0.5 mg ta blet RxNorm: 535948 1 Tablet(s) PO BID 02/11/2015 03/11/2015 Inactive Carafate 1 gram tablet RxNorm: 078166 TAKE 1 TABLET TWICE A DAY FOR 30 DAYS 02/08/2015 02/07/2015 In active Generic For:CARAFATE 1GM 02/08/2015 12:3 6:39 PM Carafate 1 gram tablet RxNorm: 311998 Tablet(s) TAKE 1 TABLET TWICE A DAY FOR 30 DAYS 02/08/2015 09/01/2015 Inactive Generic For:CARAFATE 1GM 02/08/2015 12:3 6:39 PM potassium chloride 2 0 mEq/15 mL oral liquid RxNorm: 019072 30 Milliliter(s) (40m Eq) PO daily 02/05/2015 12/01/2015 Inactive atenolol 50 mg tablet RxNorm: 869389 1 Tablet(s) PO daily 02/04/2015 05/03/2015 Inactive [SAVINGS FOR NON-COVERED DRUGS -- BIN:00 3585, PCN: [id number], Group: XXXXX, ID# XXXXXXX, Questions: . THIS IS NOT INSURANCE.] potassium chloride 2 0 mEq/15 mL oral liquid RxNorm: 270684 30 Milliliter(s) (40m Eq) PO daily 01/08/2015 02/04/2015 Inactive potassium chloride 2 0 mEq/15 mL oral liquid RxNorm: 072809 30 Milliliter(s) (40m Eq) PO daily 12/07/2014 01/07/2015 Inactive atenolol 50 mg tablet RxNorm: 836931 1 Tablet(s) PO daily 11/09/2014 11/08/2014 Inactive atenolol 50 mg tablet RxNorm: 108267 1 Tablet(s) PO daily 11/09/2014 02/03/2015 Inactive [SAVINGS FOR NON-COVERED DRUGS -- BIN:00 6515, PCN: ASPROD1, Group: XXXXX, ID# [id number], Questions: . THIS IS NOT INSURANCE.] Voltaren 1 % topical gel RxNorm: 858110 TOP No St art Date Active verapamil ER (HS) 24 0 mg tablet,extended release 24 hr RxNorm: 085564 1 Tablet(s) PO daily No Start Date Active aspirin 81 mg tablet RxNorm: 583849 1 Tablet(s) PO daily No Start Date Active Zofran 4 mg tablet RxNorm: 648155 1 Tablet(s) PO PRN No Start Date Active B12 1000 mcg RxNorm: 1 Tablet(s) PO daily No Start Date Active magnesium oxide 400 mg capsule RxNorm: 102119 2 Capsule(s) PO BID No Start Date Active Synthroid 150 mcg ta blet RxNorm: 839876 1 Tablet(s) PO daily No Start Date 04/04/2015 Inactive Coumadin 5 mg tablet RxNorm: 305576 1 Tablet(s) PO daily No Start Date 04/03/2015 Inactive cranberry 1,000 mg c apsule RxNorm: 607572 1 Capsule(s) PO daily No Start Date 04/13/2018 Inactive allopurinol 300 mg t ablet RxNorm: 959653 1 Tablet(s) PO daily No Start Date 03/04/2015 Inactive Prilosec 20 mg capsu le,delayed release RxNorm: 630418 1 Capsule(s) PO PRN No Start Date 08/01/2015 Inactive potassium chloride 2 0 mEq/15 mL oral liquid RxNorm: 285009 30 Milliliter(s) (40m Eq) PO daily No Start Date 12/06/2014 Inactive atenolol 50 mg tablet RxNorm: 726756 1 Tablet(s) PO daily No Start Date 08/29/2017 Inactive Lipitor 40 mg tablet RxNorm: 478985 1 Tablet(s) PO daily No Start Date 09/19/2017 Inactive Effexor 75 mg tablet RxNorm: 967926 1 Tablet(s) PO daily No Start Date 04/04/2015 Inactive Carafate 1 gram tablet RxNorm: 773408 1 Tablet(s) PO BID No Start Date 02/07/2015 Inactive clonazepam 0.5 mg ta blet RxNorm: 008102 1 Tablet(s) PO BID No Start Date 02/10/2015 Inactive Plavix 75 mg tablet RxNorm: 819855 1 Tablet(s) PO daily No Start Date 02/11/2015 Inactive sodium bicarbonate 6 50 mg tablet RxNorm: 825982 2 Tablet(s) PO BID No Start Date 09/01/2015 Inactive Lovenox 30 mg/0.3 mL subcutaneous syringe RxNorm: 847149 0.3 Milliliter(s) SQ Q12H No Start Date 03/15/2017 Inactive Fish Oil 1,000 mg ca psule RxNorm: 1 Capsule(s) PO daily No Start Date 01/13/2016 Inactive Detrol LA 4 mg capsu le,extended release RxNorm: 928842 1 Capsule(s) PO daily No Start Date 06/02/2015 Inactive Medication Administered No Medication Administered data Immunizations Vaccine Codes Date Status SHINGARIX CVX: 121 03/23 completed Assessments Condition Codes Effectiv e Dates Hypothyroidism, unspecified ICD-10: E03.9 ICD-9: 244.9 04/14/2018 Essential (primary) hypertension ICD -10: I10 ICD-9: 401.9 04/14/2018 alf (current) use of anticoagulants ICD-10: Z79.01 ICD-9: [...] fatigue ICD-10: R53.83 ICD-9: 780.79 08/20/2016 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 ICD-10: Z79.899 [...] Code Item Item Code Result Date Pt [id number] PT 17.8 seconds 07/08/2018 Pt [id number] INR 1.5 07/08/2018 Pt Qfr9446 Low Intensity - 1.5-2.0 07/08/2018 Pt Mti5752 Mod intensity - 2.0-3.0 07/08/2018 Pt Hiw3947 Hi intensity - 3.0-4.0 07/08/2018 Pt Tzi5716 PT 19.2 seconds 07/01/2018 Pt Afw8962 INR 1.7 07/01/2018 Pt Zzw0970 Low Intensity - 1.5-2.0 07/01/2018 Pt Vzq7908 Mod intensity - 2.0-3.0 07/01/2018 Pt Dmp7835 Hi intensity - 3.0-4.0 07/01/2018 Pt Jmx1521 PT 17.4 seconds 06/23/2018 Pt Xdr0163 INR 1.5 06/23/2018 Pt Yuf8085 Low Intensity - 1.5-2.0 06/23/2018 Pt Uin9503 Mod intensity - 2.0-3.0 06/23/2018 Pt Aoi3366 Hi intensity - 3.0-4.0 06/23/2018 Pt Muw2005 PT 18.4 seconds 06/17/2018 Pt Inp9698 INR 1.6 06/17/2018 Pt Sdk9592 Low Intensity - 1.5-2.0 06/17/2018 Pt Mjp9980 Mod intensity - 2.0-3.0 06/17/2018 Pt Ger5322 Hi intensity - 3.0-4.0 06/17/2018 Sed Rate [...] 30.4 pg 06/08/2018 Cbc With Differential Ord2 [place]% 9.4 % 06/08/2018 Cbc With Differential Ord2 [...] 1.20 K/ul 06/08/2018 Cbc With Differential Ord2 [place] ABS# 0.5 K/ul 06/08/2018 Cbc With Differential Ord2 E[place] ABS# 0.1 K/ul 06/08/2018 Cbc With Differential Ord2 Baso ABS# 0.1 K/ul 06/08/2018 C-Reactive Protein Qnt Crqnt CRP 0.1 mg/dl 06/08/2018 Pt Dqz0841 PT 17.6 seconds 06/08/2018 Pt Pig9954 INR 1.5 06/08/2018 Pt Rhd3390 Low Intensity - 1.5-2.0 06/08/2018 Pt Mor3728 Mod intensity - 2.0-3.0 06/08/2018 Pt Gdt4583 Hi intensity - 3.0-4.0 06/08/2018 Pt Kvv1983 PT 16.8 seconds 05/10/2018 Pt Wus0443 INR 1.4 05/10/2018 Pt Tyx2107 Low Intensity - 1.5-2.0 05/10/2018 Pt Jla3057 Mod intensity - 2.0-3.0 05/10/2018 Pt Wgu3500 Hi intensity - 3.0-4.0 05/10/2018 Pt Tko2133 PT 16.7 seconds 05/04/2018 Pt Vvs6289 INR 1.4 05/04/2018 Pt Kbr2743 Low Intensity - 1.5-2.0 05/04/2018 Pt Tek5087 Mod intensity - 2.0-3.0 05/04/2018 Pt Bha1608 Hi intensity - 3.0-4.0 05/04/2018 Free T4 Nwt705 FREE T4 1.09 ng/dL 04/14/2018 Tsh Ord6 TSH (3rd IS) 2.36 uIU/mL 04/14/2018 Pt Mbe6941 PT 20.3 seconds 04/14/2018 Pt Pbv0807 INR 1.8 04/14/2018 Pt Tyq6340 Low Intensity - 1.5-2.0 04/14/2018 Pt Vsm9212 Mod intensity - 2.0-3.0 04/14/2018 Pt Lqi8226 Hi intensity - 3.0-4.0 04/14/2018 Lipid Ord30 CHOL 149 mg/dL 04/14/2018 Lipid Ord30 HDL 49.0 mg/dl 04/14/2018 Lipid Ord30 TRIG 161 mg/dL 04/14/2018 Lipid Ord30 LDL 68 mg/dL 04/14/2018 Lipid Ord30 C/HDL 3.0 Ratio 04/14/2018 %Hba1C Fga696 % HbA1c 96429-7 5.9 % 04/14/2018 %Hba1C Thd835 Gluc Ave 123 mg/dL 04/14/2018 Comp Metabolic Yok126 NA 140 mEq/L 04/14/2018 Comp Metabolic Gfl458 K 4.1 mEq/L 04/14/2018 Comp Metabolic Liw824 CL 105 mEq/L 04/14/2018 Comp Metabolic Afi809 CO2 28.0 mEq/L 04/14/2018 Comp Metabolic Rbe957 AN ION GAP 11 04/14/2018 Comp Metabolic Bre564 GL UCOSE 112 mg/dL 04/14/2018 Comp Metabolic Avc709 Cr eat 1.0 mg/dL 04/14/2018 Comp Metabolic Rne538 eG FR 58 ml/min/1.73m2 04/14 Comp Metabolic Aym939 BUN 20 mg/dL 04/14/2018 Comp Metabolic Iqn735 B/ C Ratio 20.2 Ratio 04/14/2018 Comp Metabolic Dnh759 CA LCIUM 10.0 mg/dL 04/14/2018 Comp Metabolic Hpq100 AL K PHOS 51 U/L 04/14/2018 Comp Metabolic Dil792 T(SGOT) 24 U/L 04/14/2018 Comp Metabolic Hps907 AL T(SGPT) 21 U/L 04/14/2018 Comp Metabolic Lbg321 BI LI T 0.8 mg/dL 04/14/2018 Comp Metabolic Qod738 AL BUMIN 4.2 g/dL 04/14/2018 Comp Metabolic Efv601 TP RO 7.1 g/dL 04/14/2018 Comp Metabolic Pfe620 GL OB 2.9 g/dL 04/14/2018 Comp Metabolic Lay333 A/ G Ratio 1.5 Ratio 04/14/2018 Comp Metabolic Kwi215 Os mo 283 mOsmo 04/14/2018 Cbc With [...] 30.7 pg 04/14/2018 Cbc With Differential Ord2 [place]% 10.6 % 04/14/2018 Cbc With Differential Ord2 [...] 1.18 K/ul 04/14/2018 Cbc With Differential Ord2 [place] ABS# 0.5 K/ul 04/14/2018 Cbc With Differential Ord2 Eos ABS# 0.2 K/ul 04/14/2018 Cbc With Differential Ord2 Baso ABS# 0.1 K/ul 04/14/2018 Pt Nbc2772 PT 29.3 seconds 02/11/2018 Pt Dvr3290 INR 2.8 02/11/2018 Pt Wsx4617 Low Intensity - 1.5-2.0 02/11/2018 Pt Prn2021 Mod intensity - 2.0-3.0 02/11/2018 Pt Ctb7530 Hi intensity - 3.0-4.0 02/11/2018 Comp Metabolic Smz179 NA 141 mEq/L 01/05/2018 Comp Metabolic Clz797 K 3.7 mEq/L 01/05/2018 Comp Metabolic Cjx444 CL 102 mEq/L 01/05/2018 Comp Metabolic Urg130 CO2 29.0 mEq/L 01/05/2018 Comp Metabolic Pnd399 AN ION GAP 14 01/05/2018 Comp Metabolic Tdi454 GL UCOSE 136 mg/dL 01/05/2018 Comp Metabolic Uxr654 Cr eat 1.0 mg/dL 01/05/2018 Comp Metabolic Bsy495 eG FR 61 ml/min/1.73m2 01/05 Comp Metabolic Bvd804 BUN 22 mg/dL 01/05/2018 Comp Metabolic Dwg832 B/ C Ratio 22.9 Ratio 01/05/2018 Comp Metabolic Fea107 CA LCIUM 9.7 mg/dL 01/05/2018 Comp Metabolic Goq189 AL K PHOS 57 U/L 01/05/2018 Comp Metabolic Xay404 T(SGOT) 21 U/L 01/05/2018 Comp Metabolic Nfq394 AL T(SGPT) 19 U/L 01/05/2018 Comp Metabolic Iex758 BI LI T 0.9 mg/dL 01/05/2018 Comp Metabolic Rka223 AL BUMIN 4.1 g/dL 01/05/2018 Comp Metabolic Cmt381 TP RO 7.1 g/dL 01/05/2018 Comp Metabolic Wxw285 GL OB 3.0 g/dL 01/05/2018 Comp Metabolic Lee736 A/ G Ratio 1.4 Ratio 01/05/2018 Comp Metabolic Kwy265 Os mo 287 mOsmo 01/05/2018 Free T4 Ylh897 FREE T4 1.05 ng/dL 01/05/2018 %Hba1C Smj867 % HbA1c 42459-8 6.0 % 01/05/2018 %Hba1C Ygm703 Gluc Ave 126 mg/dL 01/05/2018 Cbc With [...] 27.3 % 01/05/2018 Cbc With Differential Ord2 [place]% 10.5 % 01/05/2018 Cbc With Differential Ord2 [...] 1.27 K/ul 01/05/2018 Cbc With Differential Ord2 [place] ABS# 0.5 K/ul 01/05/2018 Cbc With Differential Ord2 Eos ABS# 0.2 K/ul 01/05/2018 Cbc With Differential Ord2 Baso ABS# 0.1 K/ul 01/05/2018 Pt Qcz5804 PT 20.7 seconds 01/05/2018 Pt Pag6541 INR 1.8 01/05/2018 Pt Gql1605 Low Intensity - 1.5-2.0 01/05/2018 Pt Jeu4660 Mod intensity - 2.0-3.0 01/05/2018 Pt Cpm0264 Hi intensity - 3.0-4.0 01/05/2018 Tsh Ord6 TSH (3rd IS) 2.34 uIU/mL 01/05/2018 Lipid Ord30 CHOL 156 mg/dL 01/05/2018 Lipid Ord30 HDL 48.0 mg/dl 01/05/2018 Lipid Ord30 TRIG 207 mg/dL 01/05/2018 Lipid Ord30 LDL 67 mg/dL 01/05/2018 Lipid Ord30 C/HDL 3.3 Ratio 01/05/2018 Pt Ilm5258 PT 28.3 seconds 11/26/2017 Pt Wgb3191 INR 2.6 11/26/2017 Pt Fvm8536 Low Intensity - 1.5-2.0 11/26/2017 Pt Oow6870 Mod intensity - 2.0-3.0 11/26/2017 Pt Elc0098 Hi intensity - 3.0-4.0 11/26/2017 Pt Xod6380 PT 36.5 seconds 11/19/2017 Pt Fdz9115 INR 3.6 11/19/2017 Pt Zgf8429 Low Intensity - 1.5-2.0 11/19/2017 Pt Ksq4837 Mod intensity - 2.0-3.0 11/19/2017 Pt Ywb3035 Hi intensity - 3.0-4.0 11/19/2017 Pt Ipx2350 PT 22.9 seconds 10/15/2017 Pt Ggv8727 INR 2.0 10/15/2017 Pt Hpl9337 Low Intensity - 1.5-2.0 10/15/2017 Pt Afk6702 Mod intensity - 2.0-3.0 10/15/2017 Pt Bwx3801 Hi intensity - 3.0-4.0 10/15/2017 Pt Dir7716 PT 25.9 seconds 10/01/2017 Pt Qen0769 INR 2.4 10/01/2017 Pt Fsi6733 Low Intensity - 1.5-2.0 10/01/2017 Pt Poc1769 Mod intensity - 2.0-3.0 10/01/2017 Pt Cit3543 Hi intensity - 3.0-4.0 10/01/2017 Pt Zbl0646 PT 20.6 seconds 09/24/2017 Pt Xnq1530 INR 1.8 09/24/2017 Pt Mbh5502 Low Intensity - 1.5-2.0 09/24/2017 Pt Pye7558 Mod intensity - 2.0-3.0 09/24/2017 Pt Mzz8036 Hi intensity - 3.0-4.0 09/24/2017 Pt Mnn6314 PT 21.0 seconds 09/15/2017 Pt Wfo0802 INR 1.8 09/15/2017 Pt Hyx1808 Low Intensity - 1.5-2.0 09/15/2017 Pt Cxh0859 Mod intensity - 2.0-3.0 09/15/2017 Pt Tya1312 Hi intensity - 3.0-4.0 09/15/2017 Pt Mei4474 PT 19.0 seconds 09/03/2017 Pt Bev6933 INR 1.6 09/03/2017 Pt Imc7949 Low Intensity - 1.5-2.0 09/03/2017 Pt Fpc4890 Mod intensity - 2.0-3.0 09/03/2017 Pt Cjo7231 Hi intensity - 3.0-4.0 09/03/2017 Pt Hwl5872 PT 17.6 seconds 08/23/2017 Pt Xih5840 INR 1.5 08/23/2017 Pt Clr2981 Low Intensity - 1.5-2.0 08/23/2017 Pt Zvp5702 Mod intensity - 2.0-3.0 08/23/2017 Pt Noy9313 Hi intensity - 3.0-4.0 08/23/2017 Pt Caz5494 PT 12.7 seconds 08/20/2017 Pt Nmb8836 INR 1.0 08/20/2017 Pt Bqm2147 Low Intensity - 1.5-2.0 08/20/2017 Pt Auc5489 Mod intensity - 2.0-3.0 08/20/2017 Pt Cqh8483 Hi intensity - 3.0-4.0 08/20/2017 Pt Zhf0069 PT 12.9 seconds 08/17/2017 Pt Zcs8367 INR 1.0 08/17/2017 Pt Dit7821 Low Intensity - 1.5-2.0 08/17/2017 Pt Jzc8434 Mod intensity - 2.0-3.0 08/17/2017 Pt Vfs1158 Hi intensity - 3.0-4.0 08/17/2017 Pt Dpp3921 PT 18.5 seconds 08/10/2017 Pt Qlc1021 INR 1.6 08/10/2017 Pt Mpj8747 Low Intensity - 1.5-2.0 08/10/2017 Pt Hav8544 Mod intensity - 2.0-3.0 08/10/2017 Pt Lhs2526 Hi intensity - 3.0-4.0 08/10/2017 Tsh Ord6 [...] 14.7 % 05/27/2017 Cbc With Differential Ord2 [place]% 8.1 % 05/27/2017 Cbc With Differential Ord2 [...] 1.11 K/ul 05/27/2017 Cbc With Differential Ord2 [place] ABS# 0.6 K/ul 05/27/2017 Cbc With Differential Ord2 Eos ABS# 0.2 K/ul 05/27/2017 Cbc With Differential Ord2 Baso ABS# 0.1 K/ul 05/27/2017 Pt Sfz8098 PT 28.2 seconds 05/27/2017 Pt Jpp2141 INR 2.6 05/27/2017 Pt Fjp8041 Low Intensity - 1.5-2.0 05/27/2017 Pt Wux2005 Mod intensity - 2.0-3.0 05/27/2017 Pt Xqg0387 Hi intensity - 3.0-4.0 05/27/2017 Lipid Ord30 CHOL 167 mg/dL 05/27/2017 Lipid Ord30 HDL 49.0 mg/dl 05/27/2017 Lipid Ord30 TRIG 347 mg/dL 05/27/2017 Lipid Ord30 LDL 49 mg/dL 05/27/2017 Lipid Ord30 C/HDL 3.4 Ratio 05/27/2017 Magnesium Ord90 Mag 1.4 mg/dL 05/27/2017 %Hba1C Blz935 % HbA1c 32419-6 5.9 % 05/27/2017 %Hba1C Sol140 Gluc Ave 123 mg/dL 05/27/2017 Comp Metabolic Dcc013 NA 138 mEq/L 05/27/2017 Comp Metabolic Mky821 K 4.1 mEq/L 05/27/2017 Comp Metabolic Brv287 CL 101 mEq/L 05/27/2017 Comp Metabolic Oal733 CO2 31.0 mEq/L 05/27/2017 Comp Metabolic Aih967 AN ION GAP 10 05/27/2017 Comp Metabolic Rzh708 GL UCOSE 117 mg/dL 05/27/2017 Comp Metabolic Hek745 Cr eat 0.9 mg/dL 05/27/2017 Comp Metabolic Jta546 eG FR 62 ml/min/1.73m2 05/27 Comp Metabolic Srg851 BUN 25 mg/dL 05/27/2017 Comp Metabolic Rqo958 B/ C Ratio 26.6 Ratio 05/27/2017 Comp Metabolic Wux223 CA LCIUM 9.5 mg/dL 05/27/2017 Comp Metabolic Bhj481 AL K PHOS 73 U/L 05/27/2017 Comp Metabolic Sxp103 T(SGOT) 18 U/L 05/27/2017 Comp Metabolic Odx344 AL T(SGPT) 12 U/L 05/27/2017 Comp Metabolic Mta422 BI LI T 0.5 mg/dL 05/27/2017 Comp Metabolic Yrs837 AL BUMIN 4.1 g/dL 05/27/2017 Comp Metabolic Rrq532 TP RO 7.1 g/dL 05/27/2017 Comp Metabolic Axd711 GL OB 3.0 g/dL 05/27/2017 Comp Metabolic Apu275 A/ G Ratio 1.3 Ratio 05/27/2017 Comp Metabolic Okh739 Os mo 281 mOsmo 05/27/2017 Free T4 Uyj386 FREE T4 0.91 ng/dL 05/27/2017 Pt Ghd6967 PT 29.2 seconds 04/16/2017 Pt Bgx0146 INR 2.7 04/16/2017 Pt Qjz4244 Low Intensity - 1.5-2.0 04/16/2017 Pt Zjc3109 Mod intensity - 2.0-3.0 04/16/2017 Pt Hay3494 Hi intensity - 3.0-4.0 04/16/2017 Pt Njp6534 PT 30.7 seconds 03/31/2017 Pt Lzj3220 INR 2.9 03/31/2017 Pt Fpa6576 Low Intensity - 1.5-2.0 03/31/2017 Pt Tpu8672 Mod intensity - 2.0-3.0 03/31/2017 Pt Nyg7715 Hi intensity - 3.0-4.0 03/31/2017 Pt Ase1429 PT 21.3 seconds 03/26/2017 Pt Vha4127 INR 1.9 03/26/2017 Pt Qzl8867 Low Intensity - 1.5-2.0 03/26/2017 Pt Lmq0896 Mod intensity - 2.0-3.0 03/26/2017 Pt Isx1317 Hi intensity - 3.0-4.0 03/26/2017 Pt Dwu9694 PT 19.8 seconds 03/22/2017 Pt Wej3319 INR 1.7 03/22/2017 Pt Snc4697 Low Intensity - 1.5-2.0 03/22/2017 Pt Kwh7225 Mod intensity - 2.0-3.0 03/22/2017 Pt Rsp6893 Hi intensity - 3.0-4.0 03/22/2017 Pt Ppk7716 PT 15.6 seconds 03/19/2017 Pt Euo7998 INR 1.3 03/19/2017 Pt Usk0652 Low Intensity - 1.5-2.0 03/19/2017 Pt Zek7391 Mod intensity - 2.0-3.0 03/19/2017 Pt Gxa4870 Hi intensity - 3.0-4.0 03/19/2017 Pt Gwe9127 PT 13.7 seconds 03/15/2017 Pt Wif2633 INR 1.1 03/15/2017 Pt Wyw3757 Low Intensity - 1.5-2.0 03/15/2017 Pt Hdn3651 Mod intensity - 2.0-3.0 03/15/2017 Pt Zha3262 Hi intensity - 3.0-4.0 03/15/2017 Pt Xzx0250 PT 25.8 seconds 01/28/2017 Pt Jsd5437 INR 2.4 01/28/2017 Pt Hzh0564 Low Intensity - 1.5-2.0 01/28/2017 Pt Zfc6743 Mod intensity - 2.0-3.0 01/28/2017 Pt Ikc8074 Hi intensity - 3.0-4.0 01/28/2017 %Hba1C Hox858 % HbA1c 44192-6 6.4 % 10/23/2016 %Hba1C Pjr935 Gluc Ave 137 mg/dL 10/23/2016 Comp Metabolic Ovo155 NA 138 mEq/L 10/23/2016 Comp Metabolic Guc750 K 3.4 mEq/L 10/23/2016 Comp Metabolic Jbi445 CL 100 mEq/L 10/23/2016 Comp Metabolic Dic677 CO2 30.0 mEq/L 10/23/2016 Comp Metabolic Jvy287 AN ION GAP 11 10/23/2016 Comp Metabolic Wvp536 GL UCOSE 139 mg/dL 10/23/2016 Comp Metabolic Bxj346 Cr eat 0.9 mg/dL 10/23/2016 Comp Metabolic Srg110 eG FR 62 ml/min/1.73m2 10/23 Comp Metabolic Hwj319 BUN 22 mg/dL 10/23/2016 Comp Metabolic Ksm220 B/ C Ratio 23.4 Ratio 10/23/2016 Comp Metabolic Hit301 CA LCIUM 8.7 mg/dL 10/23/2016 Comp Metabolic Doo794 AL K PHOS 66 U/L 10/23/2016 Comp Metabolic Hgo734 T(SGOT) 20 U/L 10/23/2016 Comp Metabolic Unw275 AL T(SGPT) 10 U/L 10/23/2016 Comp Metabolic Qoh402 BI LI T 0.5 mg/dL 10/23/2016 Comp Metabolic Jic017 AL BUMIN 3.5 g/dL 10/23/2016 Comp Metabolic Amv116 TP RO 6.3 g/dL 10/23/2016 Comp Metabolic Llu154 GL OB 2.8 g/dL 10/23/2016 Comp Metabolic Ept098 A/ G Ratio 1.3 Ratio 10/23/2016 Comp Metabolic Lzf955 Os mo 281 mOsmo 10/23/2016 Pt Pzs4364 PT 26.8 seconds 10/23/2016 Pt Fzl3489 INR 2.7 10/23/2016 Pt Rvj5597 Low Intensity - 1.5-2.0 10/23/2016 Pt Zip3329 Mod intensity - 2.0-3.0 10/23/2016 Pt Nru0402 Hi intensity - 3.0-4.0 10/23/2016 Pt Xge3676 PT 28.3 seconds 09/25/2016 Pt Nen4745 INR 2.8 09/25/2016 Pt Doz1084 Low Intensity - 1.5-2.0 09/25/2016 Pt Nxv6889 Mod intensity - 2.0-3.0 09/25/2016 Pt Uxi5237 Hi intensity - 3.0-4.0 09/25/2016 Metabolic Ord15 [...] Metabolic Ord15 CALCIUM 8.8 mg/dL 09/25/2016 Pt Zsg2389 PT 30.6 seconds 09/11/2016 Pt Ynq3533 INR 3.2 09/11/2016 Pt Ybg0599 Low Intensity - 1.5-2.0 09/11/2016 Pt Dfu6229 Mod intensity - 2.0-3.0 09/11/2016 Pt Ynu5987 Hi intensity - 3.0-4.0 09/11/2016 Comp Metabolic Fcp870 NA 138 mEq/L 09/11/2016 Comp Metabolic Wxa170 K 4.4 mEq/L 09/11/2016 Comp Metabolic Dui846 CL 103 mEq/L 09/11/2016 Comp Metabolic Qbg581 CO2 31.0 mEq/L 09/11/2016 Comp Metabolic Cjv334 AN ION GAP 8 09/11/2016 Comp Metabolic Jgv327 GL UCOSE 146 mg/dL 09/11/2016 Comp Metabolic Xwu781 Cr eat 1.0 mg/dL 09/11/2016 Comp Metabolic Xhj238 eG FR 60 ml/min/1.73m2 09/11 Comp Metabolic Mxc717 BUN 16 mg/dL 09/11/2016 Comp Metabolic Dko631 B/ C Ratio 16.5 Ratio 09/11/2016 Comp Metabolic Yyl175 CA LCIUM 8.7 mg/dL 09/11/2016 Comp Metabolic Gxo662 AL K PHOS 52 U/L 09/11/2016 Comp Metabolic Mkv435 T(SGOT) 19 U/L 09/11/2016 Comp Metabolic Pcm707 AL T(SGPT) 11 U/L 09/11/2016 Comp Metabolic Rbn012 BI LI T 0.7 mg/dL 09/11/2016 Comp Metabolic Zhl448 AL BUMIN 3.3 g/dL 09/11/2016 Comp Metabolic Axc154 TP RO 5.8 g/dL 09/11/2016 Comp Metabolic Yqd763 GL OB 2.5 g/dL 09/11/2016 Comp Metabolic Hoa413 A/ G Ratio 1.3 Ratio 09/11/2016 Comp Metabolic Hbt049 Os mo 280 mOsmo 09/11/2016 C-Reactive Protein Qnt Crqnt CRP 0.1 mg/dl 08/21/2016 Comp Metabolic Frt055 NA 139 mEq/L 08/21/2016 Comp Metabolic Qkb314 K 4.1 mEq/L 08/21/2016 Comp Metabolic Mxp316 CL 102 mEq/L 08/21/2016 Comp Metabolic Oji744 CO2 30.0 mEq/L 08/21/2016 Comp Metabolic Dyo856 AN ION GAP 11 08/21/2016 Comp Metabolic Ulw168 GL UCOSE 148 mg/dL 08/21/2016 Comp Metabolic Det142 Cr eat 1.0 mg/dL 08/21/2016 Comp Metabolic Osp464 eG FR 55 ml/min/1.73m2 08/21 Comp Metabolic Fvd931 BUN 21 mg/dL 08/21/2016 Comp Metabolic Qqr722 B/ C Ratio 20.2 Ratio 08/21/2016 Comp Metabolic Paq337 CA LCIUM 9.4 mg/dL 08/21/2016 Comp Metabolic Aes821 AL K PHOS 63 U/L 08/21/2016 Comp Metabolic Kbu302 T(SGOT) 23 U/L 08/21/2016 Comp Metabolic Gvn981 AL T(SGPT) 16 U/L 08/21/2016 Comp Metabolic Qyc762 BI LI T 0.6 mg/dL 08/21/2016 Comp Metabolic Uxk627 AL BUMIN 3.9 g/dL 08/21/2016 Comp Metabolic Tld888 TP RO 6.8 g/dL 08/21/2016 Comp Metabolic Klv236 GL OB 2.9 g/dL 08/21/2016 Comp Metabolic Vfy743 A/ G Ratio 1.4 Ratio 08/21/2016 Comp Metabolic Czw403 Os mo 283 mOsmo 08/21/2016 Sed Rate Ord21 ESR 16 mm/hr 08/21/2016 Pt Rjo6103 PT 27.2 seconds 08/21/2016 Pt Lnr0231 INR 2.7 08/21/2016 Pt Gaz1149 Low Intensity - 1.5-2.0 08/21/2016 Pt Qao4267 Mod intensity - 2.0-3.0 08/21/2016 Pt Vbe2494 Hi intensity - 3.0-4.0 08/21/2016 Magnesium Ord90 Mag 1.9 mg/dL 08/21/2016 Pt Sxw4958 PT 25.9 seconds 06/17/2016 Pt Nut8094 INR 2.5 06/17/2016 Pt Ojg7857 Low Intensity - 1.5-2.0 06/17/2016 Pt Zwr8618 Mod intensity - 2.0-3.0 06/17/2016 Pt Zjs2287 Hi intensity - 3.0-4.0 06/17/2016 Tsh Ord6 hTSH II 2.13 uIU/mL 06/08/2016 Free T4 Exm407 FREE T4 0.79 ng/dL 06/08/2016 Cbc With [...] 80.8 fl 06/08/2016 Cbc With Differential Ord2 [place]% 12.0 % 06/08/2016 Cbc With Differential Ord2 [...] 1.40 K/ul 06/08/2016 Cbc With Differential Ord2 [place] ABS# 0.7 K/ul 06/08/2016 Cbc With Differential Ord2 Eos ABS# 0.3 K/ul 06/08/2016 Cbc With Differential Ord2 Baso ABS# 0.1 K/ul 06/08/2016 %Hba1C Tjc513 % HbA1c 57869-7 6.2 % 06/08/2016 %Hba1C Fbq856 Gluc Ave 131 mg/dL 06/08/2016 Comp Metabolic Iqi075 NA 138 mEq/L 06/08/2016 Comp Metabolic Goo838 K 3.9 mEq/L 06/08/2016 Comp Metabolic Tyt135 CL 105 mEq/L 06/08/2016 Comp Metabolic Lpj542 CO2 27.0 mEq/L 06/08/2016 Comp Metabolic Ldu607 AN ION GAP 10 06/08/2016 Comp Metabolic Quu895 GL UCOSE 127 mg/dL 06/08/2016 Comp Metabolic Jro875 Cr eat 1.0 mg/dL 06/08/2016 Comp Metabolic Uvf930 eG FR 59 ml/min/1.73m2 06/08 Comp Metabolic Por122 BUN 19 mg/dL 06/08/2016 Comp Metabolic Azi077 B/ C Ratio 19.4 Ratio 06/08/2016 Comp Metabolic Ogn495 CA LCIUM 9.2 mg/dL 06/08/2016 Comp Metabolic Buz686 AL K PHOS 77 U/L 06/08/2016 Comp Metabolic Csb851 T(SGOT) 19 U/L 06/08/2016 Comp Metabolic Ztf217 AL T(SGPT) 13 U/L 06/08/2016 Comp Metabolic Bvo467 BI LI T 0.5 mg/dL 06/08/2016 Comp Metabolic Pkm228 AL BUMIN 3.8 g/dL 06/08/2016 Comp Metabolic Ext202 TP RO 6.6 g/dL 06/08/2016 Comp Metabolic Hqx326 GL OB 2.8 g/dL 06/08/2016 Comp Metabolic Cvt328 A/ G Ratio 1.4 Ratio 06/08/2016 Comp Metabolic Bmd093 Os mo 280 mOsmo 06/08/2016 Pt Nau3259 PT 36.1 seconds 06/08/2016 Pt Vyt2395 INR 3.9 06/08/2016 Pt Ufe1670 Low Intensity - 1.5-2.0 06/08/2016 Pt Seb7762 Mod intensity - 2.0-3.0 06/08/2016 Pt Dqf6732 Hi intensity - 3.0-4.0 06/08/2016 Lipid Ord30 CHOL 149 mg/dL 06/08/2016 Lipid Ord30 HDL 46.0 mg/dl 06/08/2016 Lipid Ord30 TRIG 279 mg/dL 06/08/2016 Lipid Ord30 LDL 47 mg/dL 06/08/2016 Lipid Ord30 C/HDL 3.2 Ratio 06/08/2016 Pt Sie8913 PT 30.9 seconds 02/12/2016 Pt Ufp7466 INR 3.2 02/12/2016 Pt Iko8370 Low Intensity - 1.5-2.0 02/12/2016 Pt Aek3892 Mod intensity - 2.0-3.0 02/12/2016 Pt Cgj9914 Hi intensity - 3.0-4.0 02/12/2016 Free T4 Mge227 FREE T4 1.24 ng/dL 09/27/2015 %Hba1C Khc258 % HbA1c 57726-5 6.4 % 09/27/2015 %Hba1C Vov967 Gluc Ave 137 mg/dL 09/27/2015 Tsh Ord6 hTSH II 0.37 uIU/mL 09/27/2015 Pt Blh4633 PT 26.2 seconds 09/27/2015 Pt Lnp7019 INR 2.5 09/27/2015 Pt Ljm6589 Low Intensity - 1.5-2.0 09/27/2015 Pt Pwp2064 Mod intensity - 2.0-3.0 09/27/2015 Pt Aoj9581 Hi intensity - 3.0-4.0 09/27/2015 Pt Zsb7572 PT 27.6 seconds 2015 Pt Ejd3590 INR 2.7 2015 Pt Cnu0990 Low Intensity - 1.5-2.0 2015 Pt Ewu8279 Mod intensity - 2.0-3.0 2015 Pt Vie6872 Hi intensity - 3.0-4.0 2015 %Hba1C Wuy444 % HbA1c 31869-0 6.1 % 06/11/2015 %Hba1C Chn952 Gluc Ave 128 mg/dL 06/11/2015 Cbc With [...] Ord2 RDW 15.8 % 06/10/2015 Comp Metabolic Ulq419 NA 139 mEq/L 06/10/2015 Comp Metabolic Tuh212 K 4.1 mEq/L 06/10/2015 Comp Metabolic Ouk115 CL 105 mEq/L 06/10/2015 Comp Metabolic Edm958 CO2 27.0 mEq/L 06/10/2015 Comp Metabolic Ykq562 AN ION GAP 11 06/10/2015 Comp Metabolic Rmr522 GL UCOSE 127 mg/dL 06/10/2015 Comp Metabolic Jyc093 Cr eat 1.0 mg/dL 06/10/2015 Comp Metabolic Fhf205 eG FR 59 ml/min/1.73m2 06/10 Comp Metabolic Hcs459 BUN 21 mg/dL 06/10/2015 Comp Metabolic Tri671 B/ C Ratio 21.2 Ratio 06/10/2015 Comp Metabolic Fmm082 CA LCIUM 9.2 mg/dL 06/10/2015 Comp Metabolic Exm492 AL K PHOS 87 U/L 06/10/2015 Comp Metabolic Gdq583 T(SGOT) 20 U/L 06/10/2015 Comp Metabolic Bbj277 AL T(SGPT) 17 U/L 06/10/2015 Comp Metabolic Vls496 BI LI T 0.4 mg/dL 06/10/2015 Comp Metabolic Pxw485 AL BUMIN 4.1 g/dL 06/10/2015 Comp Metabolic Zvm311 TP RO 7.2 g/dL 06/10/2015 Comp Metabolic Uxt609 GL OB 3.1 g/dL 06/10/2015 Comp Metabolic Dmj618 A/ G Ratio 1.3 Ratio 06/10/2015 Comp Metabolic Jmz304 Os mo 282 mOsmo 06/10/2015 Tsh Ord6 hTSH II 0.86 uIU/mL 06/10/2015 Lipid Ord30 CHOL 161 mg/dL 06/10/2015 Lipid Ord30 HDL 49.0 mg/dl 06/10/2015 Lipid Ord30 TRIG 208 mg/dL 06/10/2015 Lipid Ord30 LDL 70 mg/dL 06/10/2015 Lipid Ord30 C/HDL 3.3 Ratio 06/10/2015 Pt Mxz4725 PT 25.0 seconds 04/09/2015 Pt Iaw6468 INR 2.4 04/09/2015 Pt Gym0770 Low Intensity - 1.5-2.0 04/09/2015 Pt Xgr3155 Mod intensity - 2.0-3.0 04/09/2015 Pt Xfe9138 Hi intensity - 3.0-4.0 04/09/2015 Free T4 Ece502 FREE T4 1.05 ng/dL 01/22/2015 Pt Dbg5376 PT 27.2 seconds 01/22/2015 Pt Fjy8606 INR 2.6 01/22/2015 Pt Pyo8896 Low Intensity - 1.5-2.0 01/22/2015 Pt Zvq1875 Mod intensity - 2.0-3.0 01/22/2015 Pt Uqp6627 Hi intensity - 3.0-4.0 01/22/2015 Cbc With [...] Differential Ord2 RDW 15.2 % 01/22/2015 B12 Rse120 B12 402.00 pg/ml 01/22/2015 Tsh Ord6 hTSH II 0.65 uIU/mL 01/22/2015 Lipid Ord30 CHOL 166 mg/dL 01/22/2015 Lipid Ord30 HDL 48.0 mg/dl 01/22/2015 Lipid Ord30 TRIG 264 mg/dL 01/22/2015 Lipid Ord30 LDL 65 mg/dL 01/22/2015 Lipid Ord30 C/HDL 3.5 Ratio 01/22/2015 Comp Metabolic Xvv116 NA 138 mEq/L 01/22/2015 Comp Metabolic Qif470 K 4.1 mEq/L 01/22/2015 Comp Metabolic Vxh726 CL 104 mEq/L 01/22/2015 Comp Metabolic Dly688 CO2 29.0 mEq/L 01/22/2015 Comp Metabolic Xkl584 AN ION GAP 9 01/22/2015 Comp Metabolic Tmm703 GL UCOSE 106 mg/dL 01/22/2015 Comp Metabolic Plh496 Cr eat 0.9 mg/dL 01/22/2015 Comp Metabolic Wzq393 eG FR 63 ml/min/1.73m2 01/22 Comp Metabolic Bqp630 BUN 21 mg/dL 01/22/2015 Comp Metabolic Rnc030 B/ C Ratio 22.3 Ratio 01/22/2015 Comp Metabolic Hsi016 CA LCIUM 9.4 mg/dL 01/22/2015 Comp Metabolic Msx909 AL K PHOS 83 U/L 01/22/2015 Comp Metabolic Mez516 T(SGOT) 23 U/L 01/22/2015 Comp Metabolic Coc962 AL T(SGPT) 18 U/L 01/22/2015 Comp Metabolic Tjl921 BI LI T 0.8 mg/dL 01/22/2015 Comp Metabolic Pxe297 AL BUMIN 4.2 g/dL 01/22/2015 Comp Metabolic Ksn701 TP RO 7.3 g/dL 01/22/2015 Comp Metabolic Ypn249 GL OB 3.1 g/dL 01/22/2015 Comp Metabolic Kzv681 A/ G Ratio 1.4 Ratio 01/22/2015 Comp Metabolic Nwb538 Os mo 279 mOsmo 01/22/2015 Review of [...] Date URINALYSIS NONAUTO W /O SCOPE CPT-4: 19430 03/05/2017 Vital Signs Date Vital 04/14/2018 Blood Pressure 1: 116/78 Code: 8480-6 BMI: 41.6 Code: 47995-7 Heart Rate 1: 72 bpm Height: 5'1" SpO2: 98% Weight: 220 lbs 01/18/2018 Blood Pressure 1: 132/74 Code: 8480-6 BMI: 43.5 Code: 74150-0 Heart Rate 1: 70 bpm Height: 5'1" SpO2: 97% Weight: 230 lbs 01/04/2018 Blood Pressure 1: 134/76 Code: 8480-6 BMI: 42.7 Code: 81992-4 Heart Rate 1: 83 bpm Height: 5'1" SpO2: 98% Weight: 226 lbs 09/23/2017 Blood Pressure 1: 124/76 Code: 8480-6 BMI: 42.3 Code: 91243-8 Heart Rate 1: 94 bpm Height: 5'1" SpO2: 96% Weight: 224 lbs 05/27/2017 Blood Pressure 1: 146/78 Code: 8480-6 BMI: 41.4 Code: 98539-8 Heart Rate 1: 85 bpm Height: 5'1" SpO2: 98% Weight: 219 lbs 02/24/2017 Blood Pressure 1: 138/66 Code: 8480-6 BMI: 41.4 Code: 20218-5 Heart Rate 1: 78 bpm Height: 5'1" SpO2: 97% Weight: 219 lbs 11/02/2016 Blood Pressure 1: 144/72 Code: 8480-6 BMI: 46.1 Code: 57681-3 Heart Rate 1: 78 bpm Height: 5'1" SpO2: 98% Weight: 244 lbs 09/30/2016 Blood Pressure 1: 130/76 Code: 8480-6 BMI: 45.0 Code: 21926-4 Heart Rate 1: 86 bpm Height: 5'1" SpO2: 98% Weight: 238 lbs 09/10/2016 Blood Pressure 1: 136/68 Code: 8480-6 BMI: 46.3 Code: 00971-2 Heart Rate 1: 83 bpm Height: 5'1" SpO2: 98% Weight: 245 lbs 08/20/2016 Blood Pressure 1: 142/78 Code: 8480-6 BMI: 45.3 Code: 49654-2 Heart Rate 1: 84 bpm Height: 5'1" SpO2: 99% Weight: 240 lbs 06/08/2016 Blood Pressure 1: 134/76 Code: 8480-6 BMI: 44.2 Code: 48750-2 Heart Rate 1: 86 bpm Height: 5'1" SpO2: 96% Weight: 234 lbs 04/02/2016 Blood Pressure 1: 142/70 Code: 8480-6 BMI: 44.6 Code: 29976-1 Heart Rate 1: 78 bpm Height: 5'1" SpO2: 97% Weight: 236 lbs 01/14/2016 Blood Pressure 1: 146/72 Code: 8480-6 BMI: 44.2 Code: 60591-1 Heart Rate 1: 86 bpm Height: 5'1" SpO2: 96% Weight: 234 lbs 10/02/2015 Blood Pressure 1: 158/76 Code: 8480-6 BMI: 44.2 Code: 31572-5 Heart Rate 1: 67 bpm Height: 5'1" SpO2: 97% Weight: 234 lbs 07/15/2015 Blood Pressure 1: 148/78 Code: 8480-6 Blood Pressure 1: 200/90 Code: 8480-6 BMI: 44.0 Code: 63781-9 Heart Rate 1: 89 bpm Height: 5'1" SpO2: 97% Weight: 233 lbs 06/10/2015 Blood Pressure 1: 140/82 Code: 8480-6 BMI: 44.0 Code: 56216-4 Heart Rate 1: 78 bpm Height: 5'1" [...] wearing crocs and there was a new [place] on the floor: her foot didn't move [...] Encounters Encounter Performer Loca tion Codes Date ([id number]) [id number] EST. P ATIENT, LEVEL IV Diagnosis: Essential (primary) hypertension[ICD10: I10] Diagnosis: Hypothyroidism, unspecified[ICD10: E03.9] Diagnosis: Impaired fasting glucose[ICD10: R73.01] Diagnosis: alf (current) use of anticoagulants[ICD10: Z79.01] Edna Almanza MD, [facility] CPT-4: 88102 04/14/2018 ([id number]) [id number] EST. P ATBENJI, LEVEL III Diagnosis: Localized edema[ICD10: R60.0] Diagnosis: Gastro-esophageal reflux disease without esophagitis[ICD10: K21.9] Edna Almanza MD, [facility] CPT-4: 82365 01/18/2018 ([id number]) 23265 EST. P ATIENT, LEVEL IV Diagnosis: Gastro-esophageal reflux disease without esophagitis[ICD10: K21.9] Diagnosis: Localized edema[ICD10: R60.0] Diagnosis: Essential (primary) hypertension[ICD10: I10] Diagnosis: Hypothyroidism, unspecified[ICD10: E03.9] Diagnosis: Impaired fasting glucose[ICD10: R73.01] Edna Almanza MD, [facility] CPT-4: 66521 01/04/2018 ([id number]) 22784 EST. P ATIENT, LEVEL IV Diagnosis: Essential (primary) hypertension[ICD10: I10] Diagnosis: alf (current) use of anticoagulants[ICD10: Z79.01] Diagnosis: Incisional hernia without obstruction or gangrene[ICD10: K43.2] Diagnosis: Right lower quadrant pain[ICD10: R10.31] Sarai Almanza MD, [facility] CPT-4: 83375 09/23/2017 ([id number]) 97500 EST. 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 PATIENT, LEVEL III Diagnosis: Pain in right hip[ICD10: M25.551] Nata Almanza MD, [facility] CPT-4: 62931 02/24/2017 ([id number]) 80588 EST. P ATIENT, LEVEL IV Diagnosis: Essential (primary) hypertension[ICD10: I10] Diagnosis: Localized edema[ICD10: R60.0] Diagnosis: Pain in right hip[ICD10: M25.551] Sarai Almanza MD, [facility] CPT-4: 51260 11/02/2016 ([id number]) 38286 EST. P ATIENT, LEVEL IV Diagnosis: Essential (primary) hypertension[ICD10: I10] Diagnosis: Localized edema[ICD10: R60.0] Sarai Almanza MD, [facility] CPT-4: 98946 09/30/2016 01047 EST. PATIENT, LEVEL IV Diagnosis: Localized edema[ICD10: R60.0] Diagnosis: Pain in joints of left hand[ICD10: M25.542] Diagnosis: Pain in joints of right hand[ICD10: M25.541] Nata Almanza MD, [facility] CPT-4: 27880 09/10/2016 49631 EST. PATIENT, LEVEL IV Diagnosis: Localized edema[ICD10: R60.0] Diagnosis: Pain in joints of left hand[ICD10: M25.542] Diagnosis: Pain in joints of right hand[ICD10: M25.541] Diagnosis: Other fatigue[ICD10: R53.83] Nata Almanza MD, [facility] CPT-4: 55837 08/20/2016 72020 EST. 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 PATIENT, LEVEL IV Diagnosis: Other allergic rhinitis[ICD10: J30.89] Diagnosis: Acute laryngopharyngitis[ICD10: J06.0] Nata Almanza MD, [facility] CPT-4: 26683 04/02/2016 62494 EST. PATIENT, LEVEL IV Diagnosis: Left upper quadrant pain[ICD10: R10.12] Nata Almanza MD, [facility] CPT-4: 06262 01/14/2016 33022 EST. PATIENT, LEVEL IV Diagnosis: Pain in left shoulder[ICD10: M25.512] Diagnosis: Body mass index (BMI) 40.0-44.9, adult[ICD10: Z68.41] Nata Almanza MD, [facility] CPT-4: 50213 10/02/2015 50832 EST. PATIENT, LEVEL IV Diagnosis: Pain in left leg[ICD10: M79.605] Diagnosis: Other chcf (current) drug therapy[ICD10: Z79.899] [facility] CPT-4: 28786 07/15/2015 ([id number]) 48897 EST. [facility]: Essential (primary) hypertension[ICD10: I10] Diagnosis: Localized edema[ICD10: R60.0] Diagnosis: Pain in right shoulder[ICD10: M25.511] Diagnosis: Mixed hyperlipidemia[ICD10: E78.2] Diagnosis: Other chcf (current) drug therapy[ICD10: Z79.899] [facility] CPT-4: 14979 06/10/2015 ([id number]) OFFICE [facility] LEVEL 4 Diagnosis: ESSENTIAL HYPERTENSION[ICD9: 401.9] Diagnosis: HYPOTHYROIDISM[ICD9: 244.9] Diagnosis: ENCNTR LONG-RX USE NEC[ICD9: V58.69] Diagnosis: HYPERLIPIDEMIA[ICD9: 272.4] Diagnosis: Vitamin B12 deficiency[ICD9: 266.2] Diagnosis: Status post gastric surgery[ICD9: V45.89] Diagnosis: Snoring[ICD9: 786.09] [facility] CPT-4: 09479 01/22/2015 Plan of Care Planned Activity Notes [...] Hgb A1C 04/14/2018 Appointment: Edna Douglas WPtel: [address] [place], [place] [phone] (15 min) Moderate 04/14/2018 Patient Education: Patient [...] to further attempt to reduce peripheral edema. SJPS-mihyavca-nrlzzxnu prilosec BID and carafate QID -discussed low spice, low acidic diet 01/18/2018 Appointment: [facility] [phone] [id number] [place] (15 min) Moderate 01/18/2018 Patient Education: [...] previous levels of control. 01/04/2018 Appointment: Edan Douglas [facility] [phone] [facility] [place] [address] (30 min) Complex 01/04/2018 Patient Education: Patient Medication Summary Completed 01/04/2018 Care Plan: SCREENINGMAMMOGRAPHYDIGITAL LOINC : 38356-3 Pending 01/04/2018 Visit Plan: Abdominal hernia - not able to be taken to surgery by local providers and pt has been seen at [facility] and that surgeon felt like [place] [...] at home. 09/23/2017 Appointment: Sarai Almanza WPtel: [facility] (15 min) Moderate 09/23/2017 Patient Education: [...] normal liver response to medications. 05/27/2017 Appointment: dEna Douglas WPtel: [phone] [phone] [place] (30 min) Complex 05/27/2017 Patient Education: [...] to also have surgical clearance by Dr. Paalcios. 02/24/2017 Appointment: Nata Hsu [facility]el[facility] [phone] [facility] [place] (30 min) Complex 02/24/2017 Patient Education: [...] Chaney. 11/02/2016 Appointment: [facility]el[facility] [phone] [facility] (15 min) Moderate 11/02/2016 Patient Education: [...] peripheral edema. 09/30/2016 Appointment: Sarai Almanza WPtel: [phone] [facility] (15 min) Moderate 09/30/2016 Patient Education: Patient [...] edema. 09/10/2016 Appointment: [facility] [phone] [facility] (30 min) Complex 09/10/2016 Patient Education: Patient [...] peripheral edema. 08/20/2016 Appointment: Nata Hsu WPtel: [facility] (30 min) Complex 08/20/2016 Patient Education: Patient Medication Summary Completed 08/20/2016 [id number] Ref[facility] Initiated 07/02/2016 Visit Plan: Chronic [...] 06/08/2016 Care Plan: Referral Order SNOMED-CT : [id number] Pending 06/08/2016 Visit Plan: URI - Pt [...] allergy spray. 04/02/2016 Appointment: Nata Hsu WPtel: [facility] (30 min) Complex 04/02/2016 Patient Education: Patient [...] Edna Douglas WPtel: [phone] (30 min) Complex 01/14/2016 Patient Education: Patient Medication Summary Completed 01/14/2016 Patient Education: Obesity Completed 01/14/2016 Care Plan: BMI Above normal followup DAVID F-MGMT EDUC & TRAIN 1 PT Pending 10/24/2015 Care Plan: X-RAY EXAM OF SHOULDER LOINC : 72685-4 Pending 10/24/2015 Visit Plan: Left shoulder pain [...] weight check. 10/02/2015 Appointment: Edna Douglas WPtel: [phone] [place] (15 min) Moderate 10/02/2015 Patient Education: [...] ses Completed 06/10/2015 Appointment: Sarai Almanza WPtel: [facility] (15 min) Moderate 04/22/2015 Visit Plan: [...] surgical fixation - planning occurring at [facility]. Snoring - Sleep apnea symptoms [...] medications. 01/22/2015 Appointment: Sar[facility]manza [facility]Ptel[facility] [phone] [facility] [place] (S) New Patient 01/22/2015 Patient Education: Patient Medication Summary Completed 01/22/2015 Patient Education: Hypertension Completed 01/22/2015 [id number] Ref[facility] Initiated Instructions Comment . Chronic Anticoagul [...] and pt has been seen at [facility] and that surgeon felt like [place] would be better served by Dr. Betancur [...] to further attempt to reduce peripheral edema. GBCW-pijwkios-ypajdvfc prilosec BID and carafate QID -discussed low [...] study . Hypertension - well controlled - agaipto nue with current medications, continue with no added salt diet. Pt has been encouraged to exercise daily. The pt has been advised to call the office if there are any acute concerns about change in blood pressure readings at home. Abdominal hernia - pt to have surgical fixation - planning occurring at [facility]. Snoring - Sleep apnea symptoms [...]
--- OUTSIDE RECORDS SUMMARY | 2020-01-16 23:37 | XMS REPORT | CCD ---
Author Author Kat Almanza Organization Sarai Almanza MD, [facility] Address [address] [place] [address] Phone Care Team Providers Care Mergers And Acquisitions Manager Name Role Phone PP Unavailable CCM Unavailable Summary Purpose Interface Exchange Insurance Providers Payer name Policy type / Coverage type Covered constitution party ID Effective Begin Date Effective End Date WPS Medicare Part B Medicare Part B [id number] 2017 Unknown [employer] [place] Medicare Part B [id number] 2017 Unknown Family history Father Diagnosis Age At Onset Hyperlipidemia Unknown Heart Attack Unknown Mother Diagnosis Age At Onset Arthritis Unknown Social History Social History Element Codes Description Effective Dates Marital status Unknown M arried Nathan 09/30/2016 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 Number of children Unknown 3 01/22/[address]: 856985758 Never smoker 01/22/[address]: 680672020 Never drinks alcohol 01/22/2015 Allergies, Adverse Reactions, [...] ICD-9: 790.21 ICD-10: R73.01 Active 05/27/2017 Unknown [facility] (current) use of anticoagulants ICD-9: V58.61 ICD-10: [...] cose ICD-9: 790.21 ICD-10: R73.01 05/27/2017 Active roasterman (current) use of anticoagulants [...] Stop Date Sta tus Fill Instructions Coumadin 5 mg tablet RxNorm: 957693 Tablet(s) TAKE 1 TABLET BY MOUTH DIRE CTED 07/08/2018 01/03/2019 Ac tive Generic For:COUMADIN 5MG TAB 03/21/2018 9:13:00 AM Coumadin 4 mg tablet RxNorm: 065439 Tablet(s) TAKE 1 TABLET BY MOUTH THREE T IMES PER WEEK (WEDNESDAY, WEDNESDAY AND WEDNESDAY) 07/08/2018 02/02/2019 Active Generi c For:COUMADIN 4MG 07/22/2017 8:58:26 AM Coumadin 1 mg tablet RxNorm: 488857 1 Tablet(s) PO daily 07/08/2018 08/06/2018 Active venlafaxine ER 75 mg capsule,extended release 24 hr RxNorm: 415706 Capsule(s) TAKE 1 CAPSULE BY MOUTH ONCE DAILY 06/23/2018 06/17/2019 Active Generic For:*EFFEXOR XR 75MG 06/19/2017 12:23:45 PM sodium bicarbonate 6 50 mg tablet RxNorm: 202233 Tablet(s) TAKE 2 TABL ETS BY MOUTH TWICE DAILY 06/23/2018 12/19/2018 Active 12/20/2017 9:10:59 AM Coumadin 1 mg tablet RxNorm: 051476 1 Tablet(s) PO daily 06/17/2018 07/07/2018 Inactive Coumadin 1 mg tablet RxNorm: 063035 1 Tablet(s) PO daily 06/17/2018 06/16/2018 Inactive clonazepam 0.5 mg ta blet RxNorm: 597479 1 Tablet(s) PO BID 06/08/2018 11/04/2018 Active Carafate 1 gram tablet RxNorm: 327542 TAKE ONE TABLET BY MOUTH BEFORE MEALS AN D AT BEDTIME 05/18/2018 07/12/2018 Active Generic For:CARAFATE 1GM 8:38:28 AM Synthroid 137 mcg ta blet RxNorm: 344223 TAKE 1 TABLET BY MOUT H ONCE DAILY 05/18/2018 11/13/2018 Ac tive Generic For:SYNTHROID 137MCG TAB 2017 8:57:54 AM spironolactone 25 mg tablet RxNorm: 813608 TAKE 1 TABLET BY MOUT H EVERY DAY 05/18/2018 05/12/2019 Ac tive Generic For:*ALDACTONE 25MG 05/18/2018 8:57:50 AM allopurinol 300 mg t ablet RxNorm: 159603 TAKE 1 TABLET BY MOUT H ONCE DAILY. 04/18/2018 10/14/2018 Ac tive Generic For:ZYLOPRIM 300 MG TABLET 03/22 9:13:47 AM Lasix 20 mg tablet RxNorm: 341834 TAKE ONE TABLET BY MOUTH DAILY 04/18/2018 08/15/2018 Ac tive Generic For:LASIX 20MG 04/18/2018 9:13: 50 AM Carafate 1 gram tablet RxNorm: 937933 TAKE ONE TABLET BY MOUTH BEFORE MEALS AN D AT BEDTIME 04/18/2018 05/17/2018 Inactive Generic For:CARAFATE 1GM 1 9:32:51 AM Coumadin 5 mg tablet RxNorm: 607119 TAKE 1 TABLET BY MOUTH DIRECTED 03/21/2018 07/07/2018 In active Generic For:COUMADIN 5MG TAB 03/21/2018 9:13:00 AM Carafate 1 gram tablet RxNorm: 435523 TAKE ONE TABLET BY MOUTH BEFORE MEALS AN D AT BEDTIME 03/21/2018 04/17/2018 Inactive Generic For:CARAFATE 1GM 1 9:14:24 AM Carafate 1 gram tablet RxNorm: 428890 1 Tablet(s) PO AC & HS 02/17/2018 03/20/2018 Inactive atenolol 100 mg tablet RxNorm: 955885 1 Tablet(s) PO daily 02/04/2018 09/01/2018 Active atenolol 50 mg tablet RxNorm: 551568 1 Tablet(s) PO daily 02/03/2018 02/03/2018 Inactive omeprazole 20 mg cap sean,delayed release RxNorm: 912225 1 Capsule(s) BID 01/21/2018 01/15/2019 Ac tive Generic For:PRILOSEC 20MG 07/22/2017 8:5 8:20 AM Carafate 1 gram tablet RxNorm: 749797 1 Tablet(s) PO AC & HS 01/21/2018 02/16/2018 Inactive Carafate 1 gram tablet RxNorm: 236296 1 Tablet(s) PO AC & HS 01/18/2018 01/20/2018 Inactive Carafate 1 gram tablet RxNorm: 784465 1 Tablet(s) PO AC & HS 01/18/2018 02/27/2018 Inactive Carafate 1 gram tablet RxNorm: 955979 1 Tablet(s) PO AC & HS TAKE ONE TABLET B Y MOUTH TWICE DAILY 01/18/2018 05/17/2018 Inactive Generic For:CARAFATE 1GM 0 12/20/2017 9:10:56 AM omeprazole 20 mg cap sean,delayed release RxNorm: 976939 Capsule(s) TAKE 1 CAP SEAN BY MOUTH EVERY DAY 01/17/2018 01/20/2018 Inactive Generic For:PRILOSEC 20MG 0 07/22/2017 8:58:20 AM omeprazole 20 mg cap sean,delayed release RxNorm: 770525 Capsule(s) TAKE 1 CAP SEAN BY MOUTH EVERY DAY 01/14/2018 01/16/2018 Inactive Generic For:PRILOSEC 20MG 07/22/2017 8:58:20 AM Plavix 75 mg tablet RxNorm: 479407 1 Tablet(s) PO daily 01/07/2018 07/05/2018 Inactive clonazepam 0.5 mg ta blet RxNorm: 809942 1 Tablet(s) PO BID 01/07/2018 06/05/2018 Inactive Carafate 1 gram tablet RxNorm: 445905 1 Tablet(s) PO AC & HS 01/04/2018 01/17/2018 Inactive Lasix 20 mg tablet RxNorm: 197909 TAKE ONE TABLET BY MOUTH DAILY 12/20/2017 04/17/2018 In active Generic For:LASIX 20MG 12/20/2017 9:11: 03 AM sodium bicarbonate 6 50 mg tablet RxNorm: 441922 TAKE 2 TABLETS BY JAVON TH TWICE DAILY 12/20/2017 06/17/2018 In active 12/20/2017 9:10:59 AM Carafate 1 gram tablet RxNorm: 269325 TAKE ONE TABLET BY MOUTH TWICE DAILY 12/20/2017 01/17/2018 In active Generic For:CARAFATE 1GM 12/20/2017 9:1 0:56 AM Synthroid 137 mcg ta blet RxNorm: 007286 TAKE 1 TABLET BY MOUT H ONCE DAILY 11/19/2017 05/17/2018 In active Generic For:SYNTHROID 137MCG TAB 2017 8:58:04 AM Detrol LA 4 mg capsu le,extended release RxNorm: 038010 TAKE 1 CAPSULE BY JAVON TH ONCE DAILY 10/20/2017 04/13/2018 Inactive Generic For:DETROL LA 4MG C AP 10/20/2017 9:01:56 AM allopurinol 300 mg t ablet RxNorm: 589083 TAKE 1 TABLET BY MOUT H ONCE DAILY. 10/20/2017 04/17/2018 In active Generic For:ZYLOPRIM 300 MG TABLET 07/2017 9:01:59 AM Coumadin 5 mg tablet RxNorm: 237721 1 Tablet(s) PO UD 10/01/2017 03/20/2018 Inactive cyclobenzaprine 5 mg tablet RxNorm: 608442 1 Tablet(s) PO TID as needed myscle spasm 09/23/2017 10/12/2017 Inactive Lipitor 40 mg tablet RxNorm: 678377 TAKE 1 TABLET BY MOUTH ONCE DAILY 09/20/2017 09/14/2018 Ac tive Generic For:LIPITOR 40MG 09/20/2017 8:5 6:04 AM atenolol 100 mg tablet RxNorm: 998032 1 Tablet(s) PO daily 08/30/2017 02/03/2018 Inactive atenolol 50 mg tablet RxNorm: 060848 1 Tablet(s) PO daily 08/30/2017 08/30/2017 Inactive Lovenox 30 mg/0.3 mL subcutaneous syringe RxNorm: 971771 0.3 Milliliter(s) SQ Q12H 08/24/2017 09/06/2017 In active Lasix 20 mg tablet RxNorm: 358632 TAKE ONE TABLET BY MOUTH DAILY 08/23/2017 12/19/2017 In active Generic For:LASIX 20MG 08/21/2017 9:04: 27 AM Synthroid 137 mcg ta blet RxNorm: 454414 TAKE 1 TABLET BY MOUT H ONCE DAILY 08/23/2017 11/18/2017 In active Generic For:SYNTHROID 137MCG TAB 2017 9:04:30 AM Lovenox 30 mg/0.3 mL subcutaneous syringe RxNorm: 124432 0.3 Milliliter(s) SQ Q12H 08/10/2017 08/23/2017 In active clonazepam 0.5 mg ta blet RxNorm: 770803 1 Tablet(s) PO BID 08/04/2017 12/30/2017 Inactive Coumadin 4 mg tablet RxNorm: 040598 TAKE 1 TABLET BY MOUTH THREE TIMES PER W AKHIOK (WEDNESDAY, WEDNESDAY AND WEDNESDAY) 07/22/2017 02/16/2018 Inactive Generic For:COUMADIN 4MG 07/22/2017 8:58:26 AM omeprazole 20 mg cap sean,delayed release RxNorm: 095606 TAKE 1 CAPSULE BY JAVON TH EVERY DAY 07/22/2017 01/13/2018 Inactive Generic For:PRILOSEC 20MG 07/22/2017 8: 58:20 AM Coumadin 4 mg tablet RxNorm: 671604 TAKE 1 TABLET BY MOUTH THREE TIMES PER W AKHIOK (WEDNESDAY, WEDNESDAY AND WEDNESDAY) 07/22/2017 02/16/2018 Inactive Generic For:COUMADIN 4MG 07/22/2017 8:58:26 AM sodium bicarbonate 6 50 mg tablet RxNorm: 995832 TAKE 2 TABLETS BY JAVON TH TWICE DAILY 06/22/2017 12/18/2017 In active 06/19/2017 12:23:30 PM venlafaxine ER 75 mg capsule,extended release 24 hr RxNorm: 487402 TAKE 1 CAPSULE BY MOUTH ONCE DAILY 06/22/2017 06/16/2018 Inactive Generic For:*EFFEXOR XR 75M G 06/19/2017 12:23:45 PM Coumadin 5 mg tablet RxNorm: 984502 1 Tablet(s) PO UD 06/01/2017 09/30/2017 Inactive Keflex 500 mg capsule RxNorm: 647704 1 Capsule(s) PO TID 05/27/2017 06/02/2017 Inactive Synthroid 137 mcg ta blet RxNorm: 388478 TAKE 1 TABLET BY MOUT H ONCE DAILY 05/24/2017 08/21/2017 In active Generic For:SYNTHROID 137MCG TAB 2016 8:55:59 AM Carafate 1 gram tablet RxNorm: 506262 TAKE ONE TABLET BY MOUTH TWICE DAILY 05/24/2017 12/19/2017 In active Generic For:CARAFATE 1GM 05/24/2017 8:5 5:54 AM spironolactone 25 mg tablet RxNorm: 935266 1 Tablet(s) PO daily 05/24/2017 05/17/2018 Inactive Detrol LA 4 mg capsu le,extended release RxNorm: 910730 1 Capsule(s) PO daily TAKE 1 CAPSULE BY MOUTH ONCE DAILY 05/10/2017 10/19/2017 Inactive Generic For:DETROL LA 4MG CAP 02/19/2017 2:36:00 PM Lasix 20 mg tablet RxNorm: 563688 TAKE ONE TABLET BY MOUTH DAILY 04/23/2017 08/20/2017 In active Generic For:LASIX 20MG 04/23/2017 9:04: 01 AM Coumadin 4 mg tablet RxNorm: 859332 TAKE 1 TABLET BY MOUTH THREE TIMES PER W AKHIOK (WEDNESDAY, WEDNESDAY AND WEDNESDAY) 04/23/2017 07/21/2017 Inactive Generic For:COUMADIN 4MG 04/23/2017 9:04:05 AM allopurinol 300 mg t ablet RxNorm: 274062 TAKE 1 TABLET BY MOUT H ONCE DAILY. 04/23/2017 10/19/2017 In active Generic For:ZYLOPRIM 300 MG TABLET 08/2016 9:03:57 AM potassium chloride 2 0 mEq/15 mL oral liquid RxNorm: 925868 Milliliter(s) 30 Milliliter(s) (40mEq) PO daily 03/24/2017 07/21/2017 Inactive Lovenox 30 mg/0.3 mL subcutaneous syringe RxNorm: 768423 0.3 Milliliter(s) SQ Q12H 03/22/2017 03/26/2017 In active Lovenox 30 mg/0.3 mL subcutaneous syringe RxNorm: 984774 0.3 Milliliter(s) SQ Q12H 03/19/2017 03/20/2017 In active Lovenox 30 mg/0.3 mL subcutaneous syringe RxNorm: 065858 0.3 Milliliter(s) SQ Q12H 03/16/2017 03/18/2017 In active clonazepam 0.5 mg ta blet RxNorm: 941997 1 Tablet(s) PO BID 03/02/2017 07/28/2017 Inactive Lovenox 30 mg/0.3 mL subcutaneous syringe RxNorm: 116202 1 injection SQ BID do NOT take the night time dose the day before surgery, or the morning dose the day of surgery 03/01/2017 03/07/2017 Inactive Lovenox 30 mg/0.3 mL subcutaneous syringe RxNorm: 179982 1 injection SQ BID 03/01/2017 02/28/2017 In active Detrol LA 4 mg capsu le,extended release RxNorm: 718780 TAKE 1 CAPSULE BY JAVON TH ONCE DAILY 02/19/2017 05/09/2017 Inactive Generic For:DETROL LA 4MG C AP 02/19/2017 2:36:00 PM hydrocodone 5 mg-humberto taminophen 325 mg tablet RxNorm: 300509 1-2 Tablet(s) PO Q6 P RN 02/04/2017 No Stop Date Active Zetia 10 mg tablet RxNorm: 933616 TAKE 1 TABLET BY MOUTH DAILY 01/25/2017 04/13/2018 Inactive 01/23/2017 9:03:48 AM omeprazole 20 mg cap sean,delayed release RxNorm: 185398 TAKE 1 CAPSULE BY JAVON TH EVERY DAY 01/25/2017 07/21/2017 Inactive Generic For:PRILOSEC 20MG 01/23/2017 9: 03:45 AM Coumadin 4 mg tablet RxNorm: 283713 TAKE 1 TABLET BY MOUTH THREE TIMES PER W AKHIOK (WEDNESDAY, WEDNESDAY AND WEDNESDAY) 01/25/2017 04/22/2017 Inactive Generic For:COUMADIN 4MG 01/23/2017 9:03:51 AM sodium bicarbonate 6 50 mg tablet RxNorm: 542978 TAKE 2 TABLETS BY JAVON TH TWICE DAILY 12/24/2016 06/21/2017 In active 12/24/2016 9:09:27 AM Lasix 20 mg tablet RxNorm: 693986 1 Tablet(s) PO daily 12/24/2016 04/22/2017 Inactive Synthroid 137 mcg ta blet RxNorm: 600957 TAKE 1 TABLET BY MOUT H ONCE DAILY 11/24/2016 05/22/2017 In active Generic For:SYNTHROID 137MCG TAB 2016 9:04:37 AM Coumadin 4 mg tablet RxNorm: 959685 TAKE 1 TABLET BY MOUTH THREE TIMES PER W AKHIOK (WEDNESDAY, WEDNESDAY AND WEDNESDAY) 11/24/2016 01/22/2017 Inactive Generic For:COUMADIN 4MG 11/24/2016 9:04:41 AM hydrocodone 5 mg-humberto taminophen 325 mg tablet RxNorm: 111354 1-2 Tablet(s) PO Q6 P RN 11/17/2016 02/03/2017 In active Carafate 1 gram tablet RxNorm: 393546 TAKE ONE TABLET BY MOUTH TWICE DAILY 10/27/2016 05/23/2017 In active Generic For:CARAFATE 1GM 10/26/2016 8:3 9:42 AM allopurinol 300 mg t ablet RxNorm: 902906 Tablet(s) TAKE 1 TABL ET BY MOUTH ONCE DAILY. 10/26/2016 04/22/2017 Inactive Lipitor 40 mg tablet RxNorm: 114098 1 Tablet(s) PO daily 09/25/2016 09/19/2017 Inactive Coumadin 4 mg tablet RxNorm: 683848 TAKE 1 TABLET BY MOUTH THREE TIMES PER W AKHIOK (WEDNESDAY, WEDNESDAY AND WEDNESDAY) 09/25/2016 11/23/2016 Inactive Generic For:COUMADIN 4MG 09/25/2016 8:55:58 AM Zetia 10 mg tablet RxNorm: 381800 1 Tablet(s) PO daily 09/25/2016 01/22/2017 Inactive gave 1 month of samples clonazepam 0.5 mg ta blet RxNorm: 081853 1 Tablet(s) PO BID 09/21/2016 02/16/2017 Inactive Lasix 20 mg tablet RxNorm: 583290 1 Tablet(s) PO daily 09/15/2016 12/23/2016 Inactive potassium chloride 2 0 mEq/15 mL oral liquid RxNorm: 557579 Milliliter(s) 30 Milliliter(s) (40mEq) PO daily 09/15/2016 01/12/2017 Inactive Lasix 20 mg tablet RxNorm: 678280 2 Tablet(s) PO daily 09/10/2016 09/12/2016 Inactive Lasix 20 mg tablet RxNorm: 1 Tablet(s) PO daily 08/28/2016 08/30/2016 Inactive Lasix 20 mg tablet RxNorm: 1 Tablet(s) PO daily 08/20/2016 08/22/2016 Inactive Detrol LA 4 mg capsu le,extended release RxNorm: 878132 TAKE 1 CAPSULE BY JAVON TH ONCE DAILY 07/27/2016 02/18/2017 Inactive Generic For:DETROL LA 4MG C AP 07/27/2016 9:08:27 AM Coumadin 4 mg tablet RxNorm: 044408 1 Tablet(s) PO 3 x week e and sun 07/27/2016 09/24/2016 In active omeprazole 20 mg cap sean,delayed release RxNorm: 798676 Capsule(s) PO TAKE 1 CAPSULE BY MOUTH ONCE DAILY 07/27/2016 01/22/2017 Inactive venlafaxine ER 75 mg capsule,extended release 24 hr RxNorm: 989756 1 Capsule(s) PO daily 06/29/2016 06/21/2017 Inactive sodium bicarbonate 6 50 mg tablet RxNorm: 155490 TAKE 2 TABLETS BY JAVON TWICE DAILY 06/29/2016 12/23/2016 In active 06/27/2016 9:05:39 AM Coumadin 4 mg tablet RxNorm: 380426 1 Tablet(s) PO 3 x week wed and sun 06/09/2016 06/08/2016 In active Coumadin 4 mg tablet RxNorm: 460874 1 Tablet(s) PO 3 x week e and sun 06/09/2016 07/26/2016 In active Zetia 10 mg tablet RxNorm: 265184 1 Tablet(s) PO daily 06/09/2016 06/08/2016 Inactive gave 1 month of samples Zetia 10 mg tablet RxNorm: 223069 1 Tablet(s) PO daily 06/09/2016 09/24/2016 Inactive gave 1 month of samples Effexor 75 mg tablet RxNorm: 413728 1 Tablet(s) PO daily 06/08/2016 06/28/2016 Inactive spironolactone 25 mg tablet RxNorm: 756344 1 Tablet(s) PO daily 06/08/2016 05/23/2017 Inactive Synthroid 137 mcg ta blet RxNorm: 947463 1 Tablet(s) PO daily 05/07/2016 11/02/2016 Inactive allopurinol 300 mg t ablet RxNorm: 887260 Tablet(s) TAKE 1 TABL ET BY MOUTH ONCE DAILY. 04/28/2016 10/24/2016 Inactive clonazepam 0.5 mg ta blet RxNorm: 037330 1 Tablet(s) PO BID 04/20/2016 09/15/2016 Inactive Flonase Allergy Reli ef 50 mcg/actuation nasal spray,suspension RxNorm: 2390017 1 [place] NASAL BID 04/02/2016 No Stop Date Active Zithromax Z-Thomas 250 mg tablet RxNorm: 724911 Tablet(s) PO 04/02/2016 08/27/2016 Inactive cetirizine 10 mg tablet RxNorm: 3267415 1 Tablet(s) PO daily 04/02/2016 05/01/2016 Inactive Carafate 1 gram tablet RxNorm: 575451 Tablet(s) TAKE 1 TABLET TWICE A DAY FOR 30 DAYS 03/30/2016 10/25/2016 Inactive Generic For:CARAFATE 1GM 02/08/2015 12:3 6:39 PM Plavix 75 mg tablet RxNorm: 818292 1 Tablet(s) PO daily 03/11/2016 09/06/2016 Inactive sodium bicarbonate 6 50 mg tablet RxNorm: 291836 Tablet(s) 2 Tablet(s) PO BID 02/28/2016 06/26/2016 In active omeprazole 20 mg cap sean,delayed release RxNorm: 010706 Capsule(s) PO TAKE 1 CAPSULE BY MOUTH ONCE DAILY 01/31/2016 07/26/2016 Inactive Fish Oil 1,000 mg ca psule RxNorm: 1 Capsule(s) PO BID 01/14/2016 No Stop Date Active Synthroid 137 mcg ta blet RxNorm: 989420 1 Tablet(s) PO daily 01/14/2016 05/06/2016 Inactive Detrol LA 4 mg capsu le,extended release RxNorm: 466148 TAKE 1 CAPSULE BY JAVON TH ONCE DAILY 12/30/2015 07/26/2016 Inactive Generic For:DETROL LA 4MG C AP 12/30/2015 9:11:01 AM potassium chloride 2 0 mEq/15 mL oral liquid RxNorm: 723016 Milliliter(s) 30 Milliliter(s) (40mEq) PO daily 12/02/2015 03/30/2016 Inactive sodium bicarbonate 6 50 mg tablet RxNorm: 408421 Tablet(s) 2 Tablet(s) PO BID 10/31/2015 02/27/2016 In active Lipitor 40 mg tablet RxNorm: 185178 1 Tablet(s) PO daily 10/09/2015 09/24/2016 Inactive sodium bicarbonate 6 50 mg tablet RxNorm: 431069 2 Tablet(s) PO BID 10/01/2015 10/30/2015 Inactive allopurinol 300 mg t ablet RxNorm: 610638 TAKE 1 TABLET BY MOUT H ONCE DAILY. 10/01/2015 04/27/2016 In active Generic For:ZYLOPRIM 300 MG TABLET 09/19 9:21:15 AM clonazepam 0.5 mg ta blet RxNorm: 093319 1 Tablet(s) PO BID 09/30/2015 04/19/2016 Inactive Coumadin 5 mg tablet RxNorm: 733110 1 Tablet(s) PO daily 09/27/2015 05/31/2017 Inactive Generic For:COUMADIN 5MG TAB N O T I C E PRESCRIPTION PREVIOUSLY AUTHORIZED BY DOCTOR:BOBBY ZULETA Synthroid 125 mcg ta blet RxNorm: 088583 1 Tablet(s) PO daily 09/27/2015 09/26/2015 Inactive Synthroid 125 mcg ta blet RxNorm: 717494 1 Tablet(s) PO daily 09/27/2015 01/13/2016 Inactive Carafate 1 gram tablet RxNorm: 761397 Tablet(s) TAKE 1 TABLET TWICE A DAY FOR 30 DAYS 09/02/2015 03/29/2016 Inactive Generic For:CARAFATE 1GM 02/08/2015 12:3 6:39 PM sodium bicarbonate 6 50 mg tablet RxNorm: 766215 2 Tablet(s) PO BID 09/02/2015 09/30/2015 Inactive Prilosec 20 mg capsu le,delayed release RxNorm: 104542 TAKE 1 CAPSULE BY JAVON TH ONCE DAILY 08/02/2015 01/28/2016 Inactive Generic For:PRILOSEC 20MG 08/02/2015 10:03:09 AM N O T I C E PRESCRIPTION PREVIOUSLY AUTHORIZED BY DOCTOR:BOBBY ZULETA Zyrtec 10 mg capsule RxNorm: 4225329 1 Capsule(s) PO daily 07/15/2015 08/13/2015 Inactive Keflex 500 mg capsule RxNorm: 282393 1 Capsule(s) PO TID 07/15/2015 07/21/2015 Inactive cetirizine 10 mg cap sean RxNorm: 8835264 1 Capsule(s) PO daily 07/15/2015 08/13/2015 Inactive hydrocodone 5 mg-humberto taminophen 325 mg tablet RxNorm: 998405 1-2 Tablet(s) PO Q6 P RN 06/10/2015 11/16/2016 In active sodium bicarbonate 6 50 mg tablet RxNorm: 096158 2 Tablet(s) PO BID 06/03/2015 08/31/2015 Inactive Detrol LA 4 mg capsu le,extended release RxNorm: 367036 TAKE 1 CAPSULE BY JAVON TH ONCE DAILY 06/03/2015 12/29/2015 Inactive Generic For:DETROL LA 4MG C AP N O T I C E PRESCRIPTION PREVIOUSLY AUTHORIZED BY DOCTOR:BOBBY ZULETA atenolol 50 mg tablet RxNorm: 919703 1 Tablet(s) PO daily TAKE 1 TABLET BY MO UTH DAILY 05/07/2015 08/23/2017 Inactive Generic For:TENORMIN 50MG 05/04/2015 9:07:22 AM spironolactone 25 mg tablet RxNorm: 038020 1 Tablet(s) PO daily 05/06/2015 06/07/2016 Inactive venlafaxine ER 75 mg capsule,extended release 24 hr RxNorm: 626521 1 Capsule(s) PO daily 05/04/2015 06/28/2016 Inactive atenolol 50 mg tablet RxNorm: 112934 TAKE 1 TABLET BY MOUTH DAILY 05/04/2015 05/06/2015 Inactive Generic For:TENORMIN 50MG 05/04/2015 9: 07:22 AM Synthroid 150 mcg ta blet RxNorm: 101439 TAKE 1 TABLET BY MOUT H ONCE DAILY. 04/05/2015 09/26/2015 In active Generic For:SYNTHROID 150MCG TAB 2014 4:45:40 PM N O T I C E PRESCRIPTION PREVIOUSLY AUTHORIZED BY DOCTOR:BOBBY ZULETA Effexor 75 mg tablet RxNorm: 007586 1 Tablet(s) PO daily 04/05/2015 07/03/2015 Inactive Coumadin 5 mg tablet RxNorm: 211325 TAKE 1 AND 1/2 TABLETS BY MOUTH ONCE MYRANDA LY 04/04/2015 09/26/2015 In active Generic For:COUMADIN 5MG TAB N O T I C E PRESCRIPTION PREVIOUSLY AUTHORIZED BY DOCTOR:BOBBY ZULETA clonazepam 0.5 mg ta blet RxNorm: 093704 1 Tablet(s) PO BID 03/13/2015 11/05/2015 Inactive sodium bicarbonate 6 50 mg tablet RxNorm: 412412 2 Tablet(s) PO BID 03/08/2015 06/02/2015 Inactive allopurinol 300 mg t ablet RxNorm: 183908 TAKE 1 TABLET BY MOUT H ONCE DAILY. 03/05/2015 09/30/2015 In active N O T I C E PRESCRIPTION PREVIOUSLY A UTHORIZED BY DOCTOR:OBBBY ZULETA Plavix 75 mg tablet RxNorm: 884685 1 Tablet(s) PO daily 02/12/2015 09/09/2015 Inactive clonazepam 0.5 mg ta blet RxNorm: 145655 1 Tablet(s) PO BID 02/11/2015 03/11/2015 Inactive Carafate 1 gram tablet RxNorm: 834697 TAKE 1 TABLET TWICE A DAY FOR 30 DAYS 02/08/2015 02/07/2015 In active Generic For:CARAFATE 1GM 02/08/2015 12:3 6:39 PM Carafate 1 gram tablet RxNorm: 113156 Tablet(s) TAKE 1 TABLET TWICE A DAY FOR 30 DAYS 02/08/2015 09/01/2015 Inactive Generic For:CARAFATE 1GM 02/08/2015 12:3 6:39 PM potassium chloride 2 0 mEq/15 mL oral liquid RxNorm: 410521 30 Milliliter(s) (40m Eq) PO daily 02/05/2015 12/01/2015 Inactive atenolol 50 mg tablet RxNorm: 283367 1 Tablet(s) PO daily 02/04/2015 05/03/2015 Inactive [SAVINGS FOR NON-COVERED DRUGS -- BIN:00 1884, PCN: [id number], Group: XXXXX, ID# XXXXXXX, Questions: . THIS IS NOT INSURANCE.] potassium chloride 2 0 mEq/15 mL oral liquid RxNorm: 567782 30 Milliliter(s) (40m Eq) PO daily 01/08/2015 02/04/2015 Inactive potassium chloride 2 0 mEq/15 mL oral liquid RxNorm: 876524 30 Milliliter(s) (40m Eq) PO daily 12/07/2014 01/07/2015 Inactive atenolol 50 mg tablet RxNorm: 849094 1 Tablet(s) PO daily 11/09/2014 11/08/2014 Inactive atenolol 50 mg tablet RxNorm: 960422 1 Tablet(s) PO daily 11/09/2014 02/03/2015 Inactive [SAVINGS FOR NON-COVERED DRUGS -- BIN:00 9665, PCN: ASPROD1, Group: XXXXX, ID# [id number], Questions: . THIS IS NOT INSURANCE.] Voltaren 1 % topical gel RxNorm: 536057 TOP No St art Date Active verapamil ER (HS) 24 0 mg tablet,extended release 24 hr RxNorm: 055251 1 Tablet(s) PO daily No Start Date Active aspirin 81 mg tablet RxNorm: 635786 1 Tablet(s) PO daily No Start Date Active Zofran 4 mg tablet RxNorm: 695654 1 Tablet(s) PO PRN No Start Date Active B12 1000 mcg RxNorm: 1 Tablet(s) PO daily No Start Date Active magnesium oxide 400 mg capsule RxNorm: 934092 2 Capsule(s) PO BID No Start Date Active Synthroid 150 mcg ta blet RxNorm: 033665 1 Tablet(s) PO daily No Start Date 04/04/2015 Inactive Coumadin 5 mg tablet RxNorm: 165538 1 Tablet(s) PO daily No Start Date 04/03/2015 Inactive cranberry 1,000 mg c apsule RxNorm: 706920 1 Capsule(s) PO daily No Start Date 04/13/2018 Inactive allopurinol 300 mg t ablet RxNorm: 135597 1 Tablet(s) PO daily No Start Date 03/04/2015 Inactive Prilosec 20 mg capsu le,delayed release RxNorm: 863657 1 Capsule(s) PO PRN No Start Date 08/01/2015 Inactive potassium chloride 2 0 mEq/15 mL oral liquid RxNorm: 581029 30 Milliliter(s) (40m Eq) PO daily No Start Date 12/06/2014 Inactive atenolol 50 mg tablet RxNorm: 732669 1 Tablet(s) PO daily No Start Date 08/29/2017 Inactive Lipitor 40 mg tablet RxNorm: 514983 1 Tablet(s) PO daily No Start Date 09/19/2017 Inactive Effexor 75 mg tablet RxNorm: 143629 1 Tablet(s) PO daily No Start Date 04/04/2015 Inactive Carafate 1 gram tablet RxNorm: 389310 1 Tablet(s) PO BID No Start Date 02/07/2015 Inactive clonazepam 0.5 mg ta blet RxNorm: 895253 1 Tablet(s) PO BID No Start Date 02/10/2015 Inactive Plavix 75 mg tablet RxNorm: 623203 1 Tablet(s) PO daily No Start Date 02/11/2015 Inactive sodium bicarbonate 6 50 mg tablet RxNorm: 139499 2 Tablet(s) PO BID No Start Date 09/01/2015 Inactive Lovenox 30 mg/0.3 mL subcutaneous syringe RxNorm: 502813 0.3 Milliliter(s) SQ Q12H No Start Date 03/15/2017 Inactive Fish Oil 1,000 mg ca psule RxNorm: 1 Capsule(s) PO daily No Start Date 01/13/2016 Inactive Detrol LA 4 mg capsu le,extended release RxNorm: 904001 1 Capsule(s) PO daily No Start Date 06/02/2015 Inactive Medication Administered No Medication Administered data Immunizations Vaccine Codes Date Status SHINGARIX CVX: 121 03/23 completed Assessments Condition Codes Effectiv e Dates Hypothyroidism, unspecified ICD-10: E03.9 ICD-9: 244.9 04/14/2018 Essential (primary) hypertension ICD -10: I10 ICD-9: 401.9 04/14/2018 [facility] (current) use of anticoagulants ICD-10: Z79.01 ICD-9: [...] fatigue ICD-10: R53.83 ICD-9: 780.79 08/20/2016 Other alf (current) drug therapy ICD-10: Z79.899 ICD-9: V58.69 [...] Code Item Item Code Result Date Pt [id number] PT 17.8 seconds 07/08/2018 Pt Gjk1023 INR 1.5 07/08/2018 Pt Xjk8696 Low Intensity - 1.5-2.0 07/08/2018 Pt Usg0266 Mod intensity - 2.0-3.0 07/08/2018 Pt Wqr4905 Hi intensity - 3.0-4.0 07/08/2018 Pt Ehm8693 PT 19.2 seconds 07/01/2018 Pt Uzo8313 INR 1.7 07/01/2018 Pt Agt0027 Low Intensity - 1.5-2.0 07/01/2018 Pt Lgd1543 Mod intensity - 2.0-3.0 07/01/2018 Pt Uhl8709 Hi intensity - 3.0-4.0 07/01/2018 Pt Alc2045 PT 17.4 seconds 06/23/2018 Pt Cxf0437 INR 1.5 06/23/2018 Pt Czh3451 Low Intensity - 1.5-2.0 06/23/2018 Pt Eeb2289 Mod intensity - 2.0-3.0 06/23/2018 Pt Mvt3026 Hi intensity - 3.0-4.0 06/23/2018 Pt Fif5446 PT 18.4 seconds 06/17/2018 Pt Njl8591 INR 1.6 06/17/2018 Pt Uvy1879 Low Intensity - 1.5-2.0 06/17/2018 Pt Nib7156 Mod intensity - 2.0-3.0 06/17/2018 Pt Ulc7398 Hi intensity - 3.0-4.0 06/17/2018 Sed Rate [...] 30.4 pg 06/08/2018 Cbc With Differential Ord2 Haines% 9.4 % 06/08/2018 Cbc With Differential Ord2 [...] 1.20 K/ul 06/08/2018 Cbc With Differential Ord2 Haines ABS# 0.5 K/ul 06/08/2018 Cbc With Differential Ord2 Eos ABS# 0.1 K/ul 06/08/2018 Cbc With Differential Ord2 Baso ABS# 0.1 K/ul 06/08/2018 C-Reactive Protein Qnt Crqnt CRP 0.1 mg/dl 06/08/2018 Pt Bqd8484 PT 17.6 seconds 06/08/2018 Pt Vql3129 INR 1.5 06/08/2018 Pt Tki9082 Low Intensity - 1.5-2.0 06/08/2018 Pt Qcr6079 Mod intensity - 2.0-3.0 06/08/2018 Pt Snp1703 Hi intensity - 3.0-4.0 06/08/2018 Pt Umv7027 PT 16.8 seconds 05/10/2018 Pt Sze9349 INR 1.4 05/10/2018 Pt Ukz5170 Low Intensity - 1.5-2.0 05/10/2018 Pt Ovt1546 Mod intensity - 2.0-3.0 05/10/2018 Pt Shc4742 Hi intensity - 3.0-4.0 05/10/2018 Pt Jhy1955 PT 16.7 seconds 05/04/2018 Pt Iyk4050 INR 1.4 05/04/2018 Pt Owe7476 Low Intensity - 1.5-2.0 05/04/2018 Pt Bpo1137 Mod intensity - 2.0-3.0 05/04/2018 Pt Iqe8495 Hi intensity - 3.0-4.0 05/04/2018 Free T4 Fno355 FREE T4 1.09 ng/dL 04/14/2018 Tsh Ord6 TSH (3rd IS) 2.36 uIU/mL 04/14/2018 Pt Lvz3502 PT 20.3 seconds 04/14/2018 Pt Vmx0635 INR 1.8 04/14/2018 Pt Vfb8316 Low Intensity - 1.5-2.0 04/14/2018 Pt Etr4801 Mod intensity - 2.0-3.0 04/14/2018 Pt Opf9496 Hi intensity - 3.0-4.0 04/14/2018 Lipid Ord30 CHOL 149 mg/dL 04/14/2018 Lipid Ord30 HDL 49.0 mg/dl 04/14/2018 Lipid Ord30 TRIG 161 mg/dL 04/14/2018 Lipid Ord30 LDL 68 mg/dL 04/14/2018 Lipid Ord30 C/HDL 3.0 Ratio 04/14/2018 %Hba1C Gez869 % HbA1c 47538-1 5.9 % 04/14/2018 %Hba1C Hxj781 Gluc Ave 123 mg/dL 04/14/2018 Comp Metabolic Ocz221 NA 140 mEq/L 04/14/2018 Comp Metabolic Esr265 K 4.1 mEq/L 04/14/2018 Comp Metabolic Qgn569 CL 105 mEq/L 04/14/2018 Comp Metabolic Ggk457 CO2 28.0 mEq/L 04/14/2018 Comp Metabolic Uwd580 AN ION GAP 11 04/14/2018 Comp Metabolic Ovn868 GL UCOSE 112 mg/dL 04/14/2018 Comp Metabolic Dnf989 Cr eat 1.0 mg/dL 04/14/2018 Comp Metabolic Fkw923 eG FR 58 ml/min/1.73m2 04/14 Comp Metabolic Eby229 BUN 20 mg/dL 04/14/2018 Comp Metabolic Lcx971 B/ C Ratio 20.2 Ratio 04/14/2018 Comp Metabolic Mth868 CA LCIUM 10.0 mg/dL 04/14/2018 Comp Metabolic Tum439 AL K PHOS 51 U/L 04/14/2018 Comp Metabolic Mpp716 T(SGOT) 24 U/L 04/14/2018 Comp Metabolic Gbt189 AL T(SGPT) 21 U/L 04/14/2018 Comp Metabolic Dqu695 BI LI T 0.8 mg/dL 04/14/2018 Comp Metabolic Oeb017 AL BUMIN 4.2 g/dL 04/14/2018 Comp Metabolic Hhk336 TP RO 7.1 g/dL 04/14/2018 Comp Metabolic Wce324 GL OB 2.9 g/dL 04/14/2018 Comp Metabolic Qsm426 A/ G Ratio 1.5 Ratio 04/14/2018 Comp Metabolic Afs310 Os mo 283 mOsmo 04/14/2018 Cbc With [...] 30.7 pg 04/14/2018 Cbc With Differential Ord2 Haines% 10.6 % 04/14/2018 Cbc With Differential Ord2 [...] 1.18 K/ul 04/14/2018 Cbc With Differential Ord2 Haines ABS# 0.5 K/ul 04/14/2018 Cbc With Differential Ord2 Eos ABS# 0.2 K/ul 04/14/2018 Cbc With Differential Ord2 Baso ABS# 0.1 K/ul 04/14/2018 Pt Jpu4228 PT 29.3 seconds 02/11/2018 Pt Xzf6848 INR 2.8 02/11/2018 Pt Hys1169 Low Intensity - 1.5-2.0 02/11/2018 Pt Lxl4432 Mod intensity - 2.0-3.0 02/11/2018 Pt Ika8993 Hi intensity - 3.0-4.0 02/11/2018 Comp Metabolic Dzt278 NA 141 mEq/L 01/05/2018 Comp Metabolic Bxp380 K 3.7 mEq/L 01/05/2018 Comp Metabolic Znu633 CL 102 mEq/L 01/05/2018 Comp Metabolic Ppd117 CO2 29.0 mEq/L 01/05/2018 Comp Metabolic Viw611 AN ION GAP 14 01/05/2018 Comp Metabolic Bai491 GL UCOSE 136 mg/dL 01/05/2018 Comp Metabolic Ovx809 Cr eat 1.0 mg/dL 01/05/2018 Comp Metabolic Pch015 eG FR 61 ml/min/1.73m2 01/05 Comp Metabolic Pqb388 BUN 22 mg/dL 01/05/2018 Comp Metabolic Aus407 B/ C Ratio 22.9 Ratio 01/05/2018 Comp Metabolic Lmm155 CA LCIUM 9.7 mg/dL 01/05/2018 Comp Metabolic Jly820 AL K PHOS 57 U/L 01/05/2018 Comp Metabolic Mlk308 T(SGOT) 21 U/L 01/05/2018 Comp Metabolic Kte930 AL T(SGPT) 19 U/L 01/05/2018 Comp Metabolic Fks821 BI LI T 0.9 mg/dL 01/05/2018 Comp Metabolic Zaf860 AL BUMIN 4.1 g/dL 01/05/2018 Comp Metabolic Qpa472 TP RO 7.1 g/dL 01/05/2018 Comp Metabolic Dxo933 GL OB 3.0 g/dL 01/05/2018 Comp Metabolic Soh525 A/ G Ratio 1.4 Ratio 01/05/2018 Comp Metabolic Ftr287 Os mo 287 mOsmo 01/05/2018 Free T4 Ztg053 FREE T4 1.05 ng/dL 01/05/2018 %Hba1C Ccu707 % HbA1c 17719-8 6.0 % 01/05/2018 %Hba1C Inj811 Gluc Ave 126 mg/dL 01/05/2018 Cbc With [...] 30.6 pg 01/05/2018 Cbc With Differential Ord2 Haines% 10.5 % 01/05/2018 Cbc With Differential Ord2 Eos% 3.6 % 01/05/2018 Cbc With Differential Ord2 MCHC 33.6 pg 01/05/2018 Cbc With Differential Ord2 PLT 177 K/ul 01/05/2018 Cbc With Differential Ord2 Baso% 1.9 % 01/05/2018 Cbc With Differential Ord2 RDW 14.5 % 01/05/2018 Cbc With Differential Ord2 Neut ABS# 2.64 K/ul 01/05/2018 Cbc With Differential Ord2 Lymph ABS# 1.27 K/ul 01/05/2018 Cbc With Differential Ord2 Haines ABS# 0.5 K/ul 01/05/2018 Cbc With Differential Ord2 Eos ABS# 0.2 K/ul 01/05/2018 Cbc With Differential Ord2 Baso ABS# 0.1 K/ul 01/05/2018 Pt Fme7875 PT 20.7 seconds 01/05/2018 Pt Gdk8369 INR 1.8 01/05/2018 Pt Jfe0681 Low Intensity - 1.5-2.0 01/05/2018 Pt Thc5283 Mod intensity - 2.0-3.0 01/05/2018 Pt Zpf5101 Hi intensity - 3.0-4.0 01/05/2018 Tsh Ord6 TSH (3rd IS) 2.34 uIU/mL 01/05/2018 Lipid Ord30 CHOL 156 mg/dL 01/05/2018 Lipid Ord30 HDL 48.0 mg/dl 01/05/2018 Lipid Ord30 TRIG 207 mg/dL 01/05/2018 Lipid Ord30 LDL 67 mg/dL 01/05/2018 Lipid Ord30 C/HDL 3.3 Ratio 01/05/2018 Pt Byh3229 PT 28.3 seconds 11/26/2017 Pt Omh9430 INR 2.6 11/26/2017 Pt Lxe9090 Low Intensity - 1.5-2.0 11/26/2017 Pt Cqs0812 Mod intensity - 2.0-3.0 11/26/2017 Pt Bqb4697 Hi intensity - 3.0-4.0 11/26/2017 Pt Bfb0792 PT 36.5 seconds 11/19/2017 Pt Eah4699 INR 3.6 11/19/2017 Pt Hqc2969 Low Intensity - 1.5-2.0 11/19/2017 Pt Yqh2996 Mod intensity - 2.0-3.0 11/19/2017 Pt Oxs0829 Hi intensity - 3.0-4.0 11/19/2017 Pt Teu0745 PT 22.9 seconds 10/15/2017 Pt Elo9646 INR 2.0 10/15/2017 Pt Foe3720 Low Intensity - 1.5-2.0 10/15/2017 Pt Tpq4145 Mod intensity - 2.0-3.0 10/15/2017 Pt Iwu6887 Hi intensity - 3.0-4.0 10/15/2017 Pt Gzm1344 PT 25.9 seconds 10/01/2017 Pt Hxx8424 INR 2.4 10/01/2017 Pt Mlr1308 Low Intensity - 1.5-2.0 10/01/2017 Pt Grp0401 Mod intensity - 2.0-3.0 10/01/2017 Pt Rml3334 Hi intensity - 3.0-4.0 10/01/2017 Pt Kyi7629 PT 20.6 seconds 09/24/2017 Pt Upg0066 INR 1.8 09/24/2017 Pt Vbp7171 Low Intensity - 1.5-2.0 09/24/2017 Pt Zwc8339 Mod intensity - 2.0-3.0 09/24/2017 Pt Pui4341 Hi intensity - 3.0-4.0 09/24/2017 Pt Hpd0172 PT 21.0 seconds 09/15/2017 Pt Jjs7484 INR 1.8 09/15/2017 Pt Mlu3440 Low Intensity - 1.5-2.0 09/15/2017 Pt Xpw8790 Mod intensity - 2.0-3.0 09/15/2017 Pt Nyi7153 Hi intensity - 3.0-4.0 09/15/2017 Pt Qud0229 PT 19.0 seconds 09/03/2017 Pt Soe0660 INR 1.6 09/03/2017 Pt Ytc6946 Low Intensity - 1.5-2.0 09/03/2017 Pt Dts1699 Mod intensity - 2.0-3.0 09/03/2017 Pt Bck0230 Hi intensity - 3.0-4.0 09/03/2017 Pt Qlx2791 PT 17.6 seconds 08/23/2017 Pt Iqx2514 INR 1.5 08/23/2017 Pt Czt8404 Low Intensity - 1.5-2.0 08/23/2017 Pt Ngr6001 Mod intensity - 2.0-3.0 08/23/2017 Pt Vor9464 Hi intensity - 3.0-4.0 08/23/2017 Pt Xsa4517 PT 12.7 seconds 08/20/2017 Pt Lxx7800 INR 1.0 08/20/2017 Pt Dfl7944 Low Intensity - 1.5-2.0 08/20/2017 Pt Eud4410 Mod intensity - 2.0-3.0 08/20/2017 Pt Bml2659 Hi intensity - 3.0-4.0 08/20/2017 Pt Uwo5260 PT 12.9 seconds 08/17/2017 Pt Rhs5852 INR 1.0 08/17/2017 Pt Owv8868 Low Intensity - 1.5-2.0 08/17/2017 Pt Uwq4888 Mod intensity - 2.0-3.0 08/17/2017 Pt Lqr9998 Hi intensity - 3.0-4.0 08/17/2017 Pt Dsh8220 PT 18.5 seconds 08/10/2017 Pt Ody0667 INR 1.6 08/10/2017 Pt Oia2422 Low Intensity - 1.5-2.0 08/10/2017 Pt Luf8623 Mod intensity - 2.0-3.0 08/10/2017 Pt Yph1479 Hi intensity - 3.0-4.0 08/10/2017 Tsh Ord6 [...] 14.7 % 05/27/2017 Cbc With Differential Ord2 Haines% 8.1 % 05/27/2017 Cbc With Differential Ord2 MCH 29.3 pg 05/27/2017 Cbc With Differential Ord2 Eos% 3.2 % 05/27/2017 Cbc With Differential Ord2 MCHC 33.4 pg 05/27/2017 Cbc With Differential Ord2 PLT 239 K/ul 05/27/2017 Cbc With Differential Ord2 Baso% 1.1 % 05/27/2017 Cbc With Differential Ord2 Neut ABS# 5.49 K/ul 05/27/2017 Cbc With Differential Ord2 RDW 14.4 % 05/27/2017 Cbc With Differential Ord2 Lymph ABS# 1.11 K/ul 05/27/2017 Cbc With Differential Ord2 Haines ABS# 0.6 K/ul 05/27/2017 Cbc With Differential Ord2 Eos ABS# 0.2 K/ul 05/27/2017 Cbc With Differential Ord2 Baso ABS# 0.1 K/ul 05/27/2017 Pt Ebt0772 PT 28.2 seconds 05/27/2017 Pt Tlx8178 INR 2.6 05/27/2017 Pt Cxb0904 Low Intensity - 1.5-2.0 05/27/2017 Pt Naj7813 Mod intensity - 2.0-3.0 05/27/2017 Pt Ynp5605 Hi intensity - 3.0-4.0 05/27/2017 Lipid Ord30 CHOL 167 mg/dL 05/27/2017 Lipid Ord30 HDL 49.0 mg/dl 05/27/2017 Lipid Ord30 TRIG 347 mg/dL 05/27/2017 Lipid Ord30 LDL 49 mg/dL 05/27/2017 Lipid Ord30 C/HDL 3.4 Ratio 05/27/2017 Magnesium Ord90 Mag 1.4 mg/dL 05/27/2017 %Hba1C Wmx482 % HbA1c 55675-2 5.9 % 05/27/2017 %Hba1C Uss298 Gluc Ave 123 mg/dL 05/27/2017 Comp Metabolic Ejs150 NA 138 mEq/L 05/27/2017 Comp Metabolic Bvq413 K 4.1 mEq/L 05/27/2017 Comp Metabolic Idm741 CL 101 mEq/L 05/27/2017 Comp Metabolic Wke112 CO2 31.0 mEq/L 05/27/2017 Comp Metabolic Ldm803 AN ION GAP 10 05/27/2017 Comp Metabolic Vsv804 GL UCOSE 117 mg/dL 05/27/2017 Comp Metabolic Mfn021 Cr eat 0.9 mg/dL 05/27/2017 Comp Metabolic Ikf117 eG FR 62 ml/min/1.73m2 05/27 Comp Metabolic Fwc100 BUN 25 mg/dL 05/27/2017 Comp Metabolic Hvk200 B/ C Ratio 26.6 Ratio 05/27/2017 Comp Metabolic Afa555 CA LCIUM 9.5 mg/dL 05/27/2017 Comp Metabolic Bdz553 AL K PHOS 73 U/L 05/27/2017 Comp Metabolic Nfr385 T(SGOT) 18 U/L 05/27/2017 Comp Metabolic Ghm362 AL T(SGPT) 12 U/L 05/27/2017 Comp Metabolic Jlr848 BI LI T 0.5 mg/dL 05/27/2017 Comp Metabolic Kjj907 AL BUMIN 4.1 g/dL 05/27/2017 Comp Metabolic Bpo451 TP RO 7.1 g/dL 05/27/2017 Comp Metabolic Yyd831 GL OB 3.0 g/dL 05/27/2017 Comp Metabolic Nfw742 A/ G Ratio 1.3 Ratio 05/27/2017 Comp Metabolic Smk969 Os mo 281 mOsmo 05/27/2017 Free T4 Pej894 FREE T4 0.91 ng/dL 05/27/2017 Pt Nxz1818 PT 29.2 seconds 04/16/2017 Pt Kvd9003 INR 2.7 04/16/2017 Pt Vrl1695 Low Intensity - 1.5-2.0 04/16/2017 Pt Nga0895 Mod intensity - 2.0-3.0 04/16/2017 Pt Eit8131 Hi intensity - 3.0-4.0 04/16/2017 Pt Ytm0593 PT 30.7 seconds 03/31/2017 Pt Tja4446 INR 2.9 03/31/2017 Pt Orj5816 Low Intensity - 1.5-2.0 03/31/2017 Pt Qxe1593 Mod intensity - 2.0-3.0 03/31/2017 Pt Xqo8436 Hi intensity - 3.0-4.0 03/31/2017 Pt Zmy4725 PT 21.3 seconds 03/26/2017 Pt Ipn7134 INR 1.9 03/26/2017 Pt Njg0158 Low Intensity - 1.5-2.0 03/26/2017 Pt Fgd6172 Mod intensity - 2.0-3.0 03/26/2017 Pt Oyw0603 Hi intensity - 3.0-4.0 03/26/2017 Pt Vrj9523 PT 19.8 seconds 03/22/2017 Pt Teh9013 INR 1.7 03/22/2017 Pt Pxb3701 Low Intensity - 1.5-2.0 03/22/2017 Pt Htf8669 Mod intensity - 2.0-3.0 03/22/2017 Pt Shj3451 Hi intensity - 3.0-4.0 03/22/2017 Pt Qrf1819 PT 15.6 seconds 03/19/2017 Pt Pov4878 INR 1.3 03/19/2017 Pt Jzv4213 Low Intensity - 1.5-2.0 03/19/2017 Pt Yer0256 Mod intensity - 2.0-3.0 03/19/2017 Pt Rjg1089 Hi intensity - 3.0-4.0 03/19/2017 Pt Jwo7405 PT 13.7 seconds 03/15/2017 Pt Sto4954 INR 1.1 03/15/2017 Pt Fgc3552 Low Intensity - 1.5-2.0 03/15/2017 Pt Smz2619 Mod intensity - 2.0-3.0 03/15/2017 Pt Ryd9185 Hi intensity - 3.0-4.0 03/15/2017 Pt Pkx2829 PT 25.8 seconds 01/28/2017 Pt Mzh4818 INR 2.4 01/28/2017 Pt Asq7600 Low Intensity - 1.5-2.0 01/28/2017 Pt Mpu2341 Mod intensity - 2.0-3.0 01/28/2017 Pt Wcs5747 Hi intensity - 3.0-4.0 01/28/2017 %Hba1C Knn031 % HbA1c 35945-7 6.4 % 10/23/2016 %Hba1C Xgc321 Gluc Ave 137 mg/dL 10/23/2016 Comp Metabolic Tbz308 NA 138 mEq/L 10/23/2016 Comp Metabolic Abl494 K 3.4 mEq/L 10/23/2016 Comp Metabolic Ema198 CL 100 mEq/L 10/23/2016 Comp Metabolic Voz471 CO2 30.0 mEq/L 10/23/2016 Comp Metabolic Iov627 AN ION GAP 11 10/23/2016 Comp Metabolic Tnd188 GL UCOSE 139 mg/dL 10/23/2016 Comp Metabolic Dly802 Cr eat 0.9 mg/dL 10/23/2016 Comp Metabolic Cja578 eG FR 62 ml/min/1.73m2 10/23 Comp Metabolic Bbk660 BUN 22 mg/dL 10/23/2016 Comp Metabolic Wly329 B/ C Ratio 23.4 Ratio 10/23/2016 Comp Metabolic Ljt078 CA LCIUM 8.7 mg/dL 10/23/2016 Comp Metabolic Hkg033 AL K PHOS 66 U/L 10/23/2016 Comp Metabolic Xqg220 T(SGOT) 20 U/L 10/23/2016 Comp Metabolic Szm463 AL T(SGPT) 10 U/L 10/23/2016 Comp Metabolic Drj621 BI LI T 0.5 mg/dL 10/23/2016 Comp Metabolic Hfi681 AL BUMIN 3.5 g/dL 10/23/2016 Comp Metabolic Buy150 TP RO 6.3 g/dL 10/23/2016 Comp Metabolic Ylp970 GL OB 2.8 g/dL 10/23/2016 Comp Metabolic Vem356 A/ G Ratio 1.3 Ratio 10/23/2016 Comp Metabolic Pjg599 Os mo 281 mOsmo 10/23/2016 Pt Uzd3554 PT 26.8 seconds 10/23/2016 Pt Vuy5773 INR 2.7 10/23/2016 Pt Mkq9130 Low Intensity - 1.5-2.0 10/23/2016 Pt Fwm1291 Mod intensity - 2.0-3.0 10/23/2016 Pt Lrt9675 Hi intensity - 3.0-4.0 10/23/2016 Pt Cvd3229 PT 28.3 seconds 09/25/2016 Pt Rac3991 INR 2.8 09/25/2016 Pt Tyc2595 Low Intensity - 1.5-2.0 09/25/2016 Pt Nsw5347 Mod intensity - 2.0-3.0 09/25/2016 Pt Ziz2394 Hi intensity - 3.0-4.0 09/25/2016 Metabolic Ord15 [...] Metabolic Ord15 CALCIUM 8.8 mg/dL 09/25/2016 Pt Ubq3390 PT 30.6 seconds 09/11/2016 Pt Cxz8115 INR 3.2 09/11/2016 Pt Syk4315 Low Intensity - 1.5-2.0 09/11/2016 Pt Owu8032 Mod intensity - 2.0-3.0 09/11/2016 Pt Jbf7773 Hi intensity - 3.0-4.0 09/11/2016 Comp Metabolic Mrv645 NA 138 mEq/L 09/11/2016 Comp Metabolic Oah203 K 4.4 mEq/L 09/11/2016 Comp Metabolic Nrk431 CL 103 mEq/L 09/11/2016 Comp Metabolic Isd957 CO2 31.0 mEq/L 09/11/2016 Comp Metabolic Jbt621 AN ION GAP 8 09/11/2016 Comp Metabolic Kqd655 GL UCOSE 146 mg/dL 09/11/2016 Comp Metabolic Bma598 Cr eat 1.0 mg/dL 09/11/2016 Comp Metabolic Hpq190 eG FR 60 ml/min/1.73m2 09/11 Comp Metabolic Lpo517 BUN 16 mg/dL 09/11/2016 Comp Metabolic Bjr467 B/ C Ratio 16.5 Ratio 09/11/2016 Comp Metabolic Ssl879 CA LCIUM 8.7 mg/dL 09/11/2016 Comp Metabolic Xql239 AL K PHOS 52 U/L 09/11/2016 Comp Metabolic Cja016 T(SGOT) 19 U/L 09/11/2016 Comp Metabolic Jce965 AL T(SGPT) 11 U/L 09/11/2016 Comp Metabolic Yum689 BI LI T 0.7 mg/dL 09/11/2016 Comp Metabolic Tlj543 AL BUMIN 3.3 g/dL 09/11/2016 Comp Metabolic Ude791 TP RO 5.8 g/dL 09/11/2016 Comp Metabolic Btg883 GL OB 2.5 g/dL 09/11/2016 Comp Metabolic Ymg652 A/ G Ratio 1.3 Ratio 09/11/2016 Comp Metabolic Cvg949 Os mo 280 mOsmo 09/11/2016 C-Reactive Protein Qnt Crqnt CRP 0.1 mg/dl 08/21/2016 Comp Metabolic Ezc317 NA 139 mEq/L 08/21/2016 Comp Metabolic Svz776 K 4.1 mEq/L 08/21/2016 Comp Metabolic Pob411 CL 102 mEq/L 08/21/2016 Comp Metabolic Qaz499 CO2 30.0 mEq/L 08/21/2016 Comp Metabolic Xga953 AN ION GAP 11 08/21/2016 Comp Metabolic Zcj352 GL UCOSE 148 mg/dL 08/21/2016 Comp Metabolic Geu880 Cr eat 1.0 mg/dL 08/21/2016 Comp Metabolic Cje583 eG FR 55 ml/min/1.73m2 08/21 Comp Metabolic Edd845 BUN 21 mg/dL 08/21/2016 Comp Metabolic Ltq968 B/ C Ratio 20.2 Ratio 08/21/2016 Comp Metabolic Dkb501 CA LCIUM 9.4 mg/dL 08/21/2016 Comp Metabolic Bki066 AL K PHOS 63 U/L 08/21/2016 Comp Metabolic Gni318 T(SGOT) 23 U/L 08/21/2016 Comp Metabolic Eld564 AL T(SGPT) 16 U/L 08/21/2016 Comp Metabolic Eoe083 BI LI T 0.6 mg/dL 08/21/2016 Comp Metabolic Mui204 AL BUMIN 3.9 g/dL 08/21/2016 Comp Metabolic Nib700 TP RO 6.8 g/dL 08/21/2016 Comp Metabolic Jmk727 GL OB 2.9 g/dL 08/21/2016 Comp Metabolic Msp829 A/ G Ratio 1.4 Ratio 08/21/2016 Comp Metabolic Loy801 Os mo 283 mOsmo 08/21/2016 Sed Rate Ord21 ESR 16 mm/hr 08/21/2016 Pt Bbt1280 PT 27.2 seconds 08/21/2016 Pt Toc7792 INR 2.7 08/21/2016 Pt Izc1006 Low Intensity - 1.5-2.0 08/21/2016 Pt Eyp0213 Mod intensity - 2.0-3.0 08/21/2016 Pt Plp3412 Hi intensity - 3.0-4.0 08/21/2016 Magnesium Ord90 Mag 1.9 mg/dL 08/21/2016 Pt Mzz3136 PT 25.9 seconds 06/17/2016 Pt Mek3592 INR 2.5 06/17/2016 Pt Hpc8960 Low Intensity - 1.5-2.0 06/17/2016 Pt Rhw8283 Mod intensity - 2.0-3.0 06/17/2016 Pt Skm5940 Hi intensity - 3.0-4.0 06/17/2016 Tsh Ord6 hTSH II 2.13 uIU/mL 06/08/2016 Free T4 Pcc581 FREE T4 0.79 ng/dL 06/08/2016 Cbc With [...] 80.8 fl 06/08/2016 Cbc With Differential Ord2 Haines% 12.0 % 06/08/2016 Cbc With Differential Ord2 [...] 1.40 K/ul 06/08/2016 Cbc With Differential Ord2 Haines ABS# 0.7 K/ul 06/08/2016 Cbc With Differential Ord2 Eos ABS# 0.3 K/ul 06/08/2016 Cbc With Differential Ord2 Baso ABS# 0.1 K/ul 06/08/2016 %Hba1C Bsm062 % HbA1c 16437-4 6.2 % 06/08/2016 %Hba1C Zze473 Gluc Ave 131 mg/dL 06/08/2016 Comp Metabolic Nev008 NA 138 mEq/L 06/08/2016 Comp Metabolic Aru044 K 3.9 mEq/L 06/08/2016 Comp Metabolic Lfj403 CL 105 mEq/L 06/08/2016 Comp Metabolic Ibo173 CO2 27.0 mEq/L 06/08/2016 Comp Metabolic Bwg156 AN ION GAP 10 06/08/2016 Comp Metabolic Mxd830 GL UCOSE 127 mg/dL 06/08/2016 Comp Metabolic Sac059 Cr eat 1.0 mg/dL 06/08/2016 Comp Metabolic Rcg906 eG FR 59 ml/min/1.73m2 06/08 Comp Metabolic Zxv574 BUN 19 mg/dL 06/08/2016 Comp Metabolic Jcz599 B/ C Ratio 19.4 Ratio 06/08/2016 Comp Metabolic Baf038 CA LCIUM 9.2 mg/dL 06/08/2016 Comp Metabolic Sqx588 AL K PHOS 77 U/L 06/08/2016 Comp Metabolic Jcb592 T(SGOT) 19 U/L 06/08/2016 Comp Metabolic Aaj010 AL T(SGPT) 13 U/L 06/08/2016 Comp Metabolic Can044 BI LI T 0.5 mg/dL 06/08/2016 Comp Metabolic Ivm953 AL BUMIN 3.8 g/dL 06/08/2016 Comp Metabolic Syl267 TP RO 6.6 g/dL 06/08/2016 Comp Metabolic Yix821 GL OB 2.8 g/dL 06/08/2016 Comp Metabolic Bmd815 A/ G Ratio 1.4 Ratio 06/08/2016 Comp Metabolic Zoc854 Os mo 280 mOsmo 06/08/2016 Pt Tzh2682 PT 36.1 seconds 06/08/2016 Pt Ybd8712 INR 3.9 06/08/2016 Pt Gcp2395 Low Intensity - 1.5-2.0 06/08/2016 Pt Fqb7700 Mod intensity - 2.0-3.0 06/08/2016 Pt Wfh9187 Hi intensity - 3.0-4.0 06/08/2016 Lipid Ord30 CHOL 149 mg/dL 06/08/2016 Lipid Ord30 HDL 46.0 mg/dl 06/08/2016 Lipid Ord30 TRIG 279 mg/dL 06/08/2016 Lipid Ord30 LDL 47 mg/dL 06/08/2016 Lipid Ord30 C/HDL 3.2 Ratio 06/08/2016 Pt Xps8982 PT 30.9 seconds 02/12/2016 Pt Hnb0121 INR 3.2 02/12/2016 Pt Cbi1798 Low Intensity - 1.5-2.0 02/12/2016 Pt Rmp1768 Mod intensity - 2.0-3.0 02/12/2016 Pt Lhe3652 Hi intensity - 3.0-4.0 02/12/2016 Free T4 Kbp391 FREE T4 1.24 ng/dL 09/27/2015 %Hba1C Axx827 % HbA1c 88865-1 6.4 % 09/27/2015 %Hba1C Gbf617 Gluc Ave 137 mg/dL 09/27/2015 Tsh Ord6 hTSH II 0.37 uIU/mL 09/27/2015 Pt Eka8210 PT 26.2 seconds 09/27/2015 Pt Jbp9094 INR 2.5 09/27/2015 Pt Qgy3163 Low Intensity - 1.5-2.0 09/27/2015 Pt Yap3051 Mod intensity - 2.0-3.0 09/27/2015 Pt Hdl7312 Hi intensity - 3.0-4.0 09/27/2015 Pt Dpm5270 PT 27.6 seconds 2015 Pt Sjp1411 INR 2.7 2015 Pt Pme3647 Low Intensity - 1.5-2.0 2015 Pt Zsp7658 Mod intensity - 2.0-3.0 2015 Pt Puu1331 Hi intensity - 3.0-4.0 2015 %Hba1C Myz509 % HbA1c 23376-1 6.1 % 06/11/2015 %Hba1C Vzf331 Gluc Ave 128 mg/dL 06/11/2015 Cbc With [...] Ord2 RDW 15.8 % 06/10/2015 Comp Metabolic Wmy002 NA 139 mEq/L 06/10/2015 Comp Metabolic Ocr636 K 4.1 mEq/L 06/10/2015 Comp Metabolic Wvt183 CL 105 mEq/L 06/10/2015 Comp Metabolic Vpr905 CO2 27.0 mEq/L 06/10/2015 Comp Metabolic Gox910 AN ION GAP 11 06/10/2015 Comp Metabolic Vrb352 GL UCOSE 127 mg/dL 06/10/2015 Comp Metabolic Clu540 Cr eat 1.0 mg/dL 06/10/2015 Comp Metabolic Bsa019 eG FR 59 ml/min/1.73m2 06/10 Comp Metabolic Oij813 BUN 21 mg/dL 06/10/2015 Comp Metabolic Gem045 B/ C Ratio 21.2 Ratio 06/10/2015 Comp Metabolic Bpd215 CA LCIUM 9.2 mg/dL 06/10/2015 Comp Metabolic Wud530 AL K PHOS 87 U/L 06/10/2015 Comp Metabolic Dgo328 T(SGOT) 20 U/L 06/10/2015 Comp Metabolic Sxj586 AL T(SGPT) 17 U/L 06/10/2015 Comp Metabolic Fqg510 BI LI T 0.4 mg/dL 06/10/2015 Comp Metabolic Wtq372 AL BUMIN 4.1 g/dL 06/10/2015 Comp Metabolic Sjt214 TP RO 7.2 g/dL 06/10/2015 Comp Metabolic Kic457 GL OB 3.1 g/dL 06/10/2015 Comp Metabolic Ckw033 A/ G Ratio 1.3 Ratio 06/10/2015 Comp Metabolic Gdc432 Os mo 282 mOsmo 06/10/2015 Tsh Ord6 hTSH II 0.86 uIU/mL 06/10/2015 Lipid Ord30 CHOL 161 mg/dL 06/10/2015 Lipid Ord30 HDL 49.0 mg/dl 06/10/2015 Lipid Ord30 TRIG 208 mg/dL 06/10/2015 Lipid Ord30 LDL 70 mg/dL 06/10/2015 Lipid Ord30 C/HDL 3.3 Ratio 06/10/2015 Pt Nki0379 PT 25.0 seconds 04/09/2015 Pt Lut5615 INR 2.4 04/09/2015 Pt Jhl1536 Low Intensity - 1.5-2.0 04/09/2015 Pt Bae6700 Mod intensity - 2.0-3.0 04/09/2015 Pt Tvl8359 Hi intensity - 3.0-4.0 04/09/2015 Free T4 Jrq560 FREE T4 1.05 ng/dL 01/22/2015 Pt Jxs4469 PT 27.2 seconds 01/22/2015 Pt Adh4296 INR 2.6 01/22/2015 Pt Zdy7782 Low Intensity - 1.5-2.0 01/22/2015 Pt Odx7921 Mod intensity - 2.0-3.0 01/22/2015 Pt Iwg0552 Hi intensity - 3.0-4.0 01/22/2015 Cbc With [...] Differential Ord2 RDW 15.2 % 01/22/2015 B12 Rva672 B12 402.00 pg/ml 01/22/2015 Tsh Ord6 hTSH II 0.65 uIU/mL 01/22/2015 Lipid Ord30 CHOL 166 mg/dL 01/22/2015 Lipid Ord30 HDL 48.0 mg/dl 01/22/2015 Lipid Ord30 TRIG 264 mg/dL 01/22/2015 Lipid Ord30 LDL 65 mg/dL 01/22/2015 Lipid Ord30 C/HDL 3.5 Ratio 01/22/2015 Comp Metabolic Dip219 NA 138 mEq/L 01/22/2015 Comp Metabolic Xbh724 K 4.1 mEq/L 01/22/2015 Comp Metabolic Mnr944 CL 104 mEq/L 01/22/2015 Comp Metabolic Jyz501 CO2 29.0 mEq/L 01/22/2015 Comp Metabolic Eyk602 AN ION GAP 9 01/22/2015 Comp Metabolic Wzn314 GL UCOSE 106 mg/dL 01/22/2015 Comp Metabolic Vfb693 Cr eat 0.9 mg/dL 01/22/2015 Comp Metabolic Luc037 eG FR 63 ml/min/1.73m2 01/22 Comp Metabolic Sop533 BUN 21 mg/dL 01/22/2015 Comp Metabolic Nfk320 B/ C Ratio 22.3 Ratio 01/22/2015 Comp Metabolic Ixk847 CA LCIUM 9.4 mg/dL 01/22/2015 Comp Metabolic Vqv554 AL K PHOS 83 U/L 01/22/2015 Comp Metabolic Ddn190 T(SGOT) 23 U/L 01/22/2015 Comp Metabolic Gsv485 AL T(SGPT) 18 U/L 01/22/2015 Comp Metabolic Nth936 BI LI T 0.8 mg/dL 01/22/2015 Comp Metabolic Ovg132 AL BUMIN 4.2 g/dL 01/22/2015 Comp Metabolic Swr000 TP RO 7.3 g/dL 01/22/2015 Comp Metabolic Sgx869 GL OB 3.1 g/dL 01/22/2015 Comp Metabolic Kug393 A/ G Ratio 1.4 Ratio 01/22/2015 Comp Metabolic Xbq525 Os mo 279 mOsmo 01/22/2015 Review of [...] Date URINALYSIS NONAUTO W /O SCOPE CPT-4: 13855 03/05/2017 Vital Signs Date Vital 04/14/2018 Blood Pressure 1: 116/78 Code: 8480-6 BMI: 41.6 Code: 82082-5 Heart Rate 1: 72 bpm Height: 5'1" SpO2: 98% Weight: 220 lbs 01/18/2018 Blood Pressure 1: 132/74 Code: 8480-6 BMI: 43.5 Code: 94983-1 Heart Rate 1: 70 bpm Height: 5'1" SpO2: 97% Weight: 230 lbs 01/04/2018 Blood Pressure 1: 134/76 Code: 8480-6 BMI: 42.7 Code: 43803-1 Heart Rate 1: 83 bpm Height: 5'1" SpO2: 98% Weight: 226 lbs 09/23/2017 Blood Pressure 1: 124/76 Code: 8480-6 BMI: 42.3 Code: 94723-3 Heart Rate 1: 94 bpm Height: 5'1" SpO2: 96% Weight: 224 lbs 05/27/2017 Blood Pressure 1: 146/78 Code: 8480-6 BMI: 41.4 Code: 94576-0 Heart Rate 1: 85 bpm Height: 5'1" SpO2: 98% Weight: 219 lbs 02/24/2017 Blood Pressure 1: 138/66 Code: 8480-6 BMI: 41.4 Code: 53789-6 Heart Rate 1: 78 bpm Height: 5'1" SpO2: 97% Weight: 219 lbs 11/02/2016 Blood Pressure 1: 144/72 Code: 8480-6 BMI: 46.1 Code: 94412-9 Heart Rate 1: 78 bpm Height: 5'1" SpO2: 98% Weight: 244 lbs 09/30/2016 Blood Pressure 1: 130/76 Code: 8480-6 BMI: 45.0 Code: 82875-0 Heart Rate 1: 86 bpm Height: 5'1" SpO2: 98% Weight: 238 lbs 09/10/2016 Blood Pressure 1: 136/68 Code: 8480-6 BMI: 46.3 Code: 26127-4 Heart Rate 1: 83 bpm Height: 5'1" SpO2: 98% Weight: 245 lbs 08/20/2016 Blood Pressure 1: 142/78 Code: 8480-6 BMI: 45.3 Code: 43745-5 Heart Rate 1: 84 bpm Height: 5'1" SpO2: 99% Weight: 240 lbs 06/08/2016 Blood Pressure 1: 134/76 Code: 8480-6 BMI: 44.2 Code: 66633-7 Heart Rate 1: 86 bpm Height: 5'1" SpO2: 96% Weight: 234 lbs 04/02/2016 Blood Pressure 1: 142/70 Code: 8480-6 BMI: 44.6 Code: 58541-9 Heart Rate 1: 78 bpm Height: 5'1" SpO2: 97% Weight: 236 lbs 01/14/2016 Blood Pressure 1: 146/72 Code: 8480-6 BMI: 44.2 Code: 16514-6 Heart Rate 1: 86 bpm Height: 5'1" SpO2: 96% Weight: 234 lbs 10/02/2015 Blood Pressure 1: 158/76 Code: 8480-6 BMI: 44.2 Code: 36692-9 Heart Rate 1: 67 bpm Height: 5'1" SpO2: 97% Weight: 234 lbs 07/15/2015 Blood Pressure 1: 200/90 Code: 8480-6 Blood Pressure 1: 148/78 Code: 8480-6 BMI: 44.0 Code: 95930-9 Heart Rate 1: 89 bpm Height: 5'1" SpO2: 97% Weight: 233 lbs 06/10/2015 Blood Pressure 1: 140/82 Code: 8480-6 BMI: 44.0 Code: 88057-3 Heart Rate 1: 78 bpm Height: 5'1" [...] wearing crocs and there was a new [place] on the floor: her foot didn't move [...] Encounters Encounter Performer Loca tion Codes Date ([id number]) [id number] EST. P ATBENJI, LEVEL IV Diagnosis: Essential (primary) hypertension[ICD10: I10] Diagnosis: Hypothyroidism, unspecified[ICD10: E03.9] Diagnosis: Impaired fasting glucose[ICD10: R73.01] Diagnosis: MCFP (current) use of anticoagulants[ICD10: Z79.01] [facility] CPT-4: 09025 04/14/2018 ([id number]) 53024 EST. P BIANCA, LEVEL III Diagnosis: Localized edema[ICD10: R60.0] Diagnosis: Gastro-esophageal reflux disease without esophagitis[ICD10: K21.9] [facility] CPT-4: 31185 01/18/2018 ([id number]) 44879 EST. P BIANCA, LEVEL IV Diagnosis: Gastro-esophageal reflux disease without esophagitis[ICD10: K21.9] Diagnosis: Localized edema[ICD10: R60.0] Diagnosis: Essential (primary) hypertension[ICD10: I10] Diagnosis: Hypothyroidism, unspecified[ICD10: E03.9] Diagnosis: Impaired fasting glucose[ICD10: R73.01] Edna Almanza MD, [facility] CPT-4: 36743 01/04/2018 ([id number]) 42249 EST. P ATIENT, LEVEL IV Diagnosis: Essential (primary) hypertension[ICD10: I10] Diagnosis: MCFP (current) use of anticoagulants[ICD10: Z79.01] Diagnosis: Incisional hernia without obstruction or gangrene[ICD10: K43.2] Diagnosis: Right lower quadrant pain[ICD10: R10.31] Sarai Almanza MD, [facility] [place] CPT-4: 24079 09/23/2017 ([id number]) 68675 EST. P ATIENT, LEVEL IV Diagnosis: Essential (primary) hypertension[ICD10: I10] Diagnosis: Mixed hyperlipidemia[ICD10: E78.2] Diagnosis: Hypothyroidism, unspecified[ICD10: E03.9] Diagnosis: Impaired fasting glucose[ICD10: R73.01] Diagnosis: roasterman (current) use of anticoagulants[ICD10: Z79.01] Edna Almanza MD, [facility] CPT-4: 61306 05/27/2017 [id number] EST. PATIENT, LEVEL III Diagnosis: Pain in right hip[ICD10: M25.551] Nata Almanza MD, [facility] CPT-4: 13099 02/24/2017 ([id number]) 02053 EST. P ATIENT, LEVEL IV Diagnosis: Essential (primary) hypertension[ICD10: I10] Diagnosis: Localized edema[ICD10: R60.0] Diagnosis: Pain in right hip[ICD10: M25.551] Sarai Almanza MD, [facility] CPT-4: 57685 11/02/2016 ([id number]) 63669 EST. P ATIENT, LEVEL IV Diagnosis: Essential (primary) hypertension[ICD10: I10] Diagnosis: Localized edema[ICD10: R60.0] Sarai Almanza MD, [facility] CPT-4: 09363 09/30/2016 04286 EST. PATIENT, LEVEL IV Diagnosis: Localized edema[ICD10: R60.0] Diagnosis: Pain in joints of left hand[ICD10: M25.542] Diagnosis: Pain in joints of right hand[ICD10: M25.541] Nata Almanza MD, [facility] CPT-4: 23327 09/10/2016 16642 EST. PATIENT, LEVEL IV Diagnosis: Localized edema[ICD10: R60.0] Diagnosis: Pain in joints of left hand[ICD10: M25.542] Diagnosis: Pain in joints of right hand[ICD10: M25.541] Diagnosis: Other fatigue[ICD10: R53.83] Nata Almanza MD, [facility] CPT-4: 96622 08/20/2016 [id number] EST. 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 PATIENT, LEVEL IV Diagnosis: Other allergic rhinitis[ICD10: J30.89] Diagnosis: Acute laryngopharyngitis[ICD10: J06.0] Nata Almanza MD, [facility] CPT-4: 16515 04/02/2016 18454 EST. PATIENT, LEVEL IV Diagnosis: Left upper quadrant pain[ICD10: R10.12] Nata Almanza MD, [facility] CPT-4: 30690 01/14/2016 33779 EST. PATIENT, LEVEL IV Diagnosis: Pain in left shoulder[ICD10: M25.512] Diagnosis: Body mass index (BMI) 40.0-44.9, adult[ICD10: Z68.41] Nata Almanza MD, [facility] CPT-4: 69842 10/02/2015 43590 EST. PATIENT, LEVEL IV Diagnosis: Pain in left leg[ICD10: M79.605] Diagnosis: Other alf (current) drug therapy[ICD10: Z79.899] Nata Almanza MD, [facility] CPT-4: 43939 07/15/2015 ([id number]) 37094 EST. 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: Other alf (current) drug therapy[ICD10: Z79.899] Edna Almanza MD, [facility] CPT-4: 52691 06/10/2015 ([id number]) OFFICE ALIZA Teran [facility] - LEVEL 4 Diagnosis: ESSENTIAL HYPERTENSION[ICD9: 401.9] Diagnosis: HYPOTHYROIDISM[ICD9: 244.9] Diagnosis: ENCNTR LONG-RX USE NEC[ICD9: V58.69] Diagnosis: HYPERLIPIDEMIA[ICD9: 272.4] Diagnosis: Vitamin B12 deficiency[ICD9: 266.2] Diagnosis: Status post gastric surgery[ICD9: V45.89] Diagnosis: Snoring[ICD9: 786.09] Sarai Almanza MD, [facility] CPT-4: 34173 01/22/2015 Plan of Care Planned Activity Notes [...] Hgb A1C 04/14/2018 Appointment: Edna Douglas WPtel: [address] [place], [place] [phone] [place] (15 min) Moderate 04/14/2018 Patient Education: [...] to further attempt to reduce peripheral edema. HLPS-rqnsfyzs-bednfmzm prilosec BID and carafate QID -discussed low spice, low acidic diet 01/18/2018 Appointment: Edna Douglas WPtel: [phone] [phone] (15 min) Moderate 01/18/2018 Patient Education: Patient [...] of control. 01/04/2018 Appointment: Edna Douglas WPtel: [phone] [phone] [place] (30 min) Complex 01/04/2018 Patient Education: Patient Medication Summary Completed 01/04/2018 Care Plan: SCREENINGMAMMOGRAPHYDIGITAL LOINC : 37191-2 Pending 01/04/2018 Visit Plan: Abdominal hernia - [...] at home. 09/23/2017 Appointment: Sarai Almanza WPtel: [address] [place], [place] [id number] (15 min) Moderate 09/23/2017 Patient Education: Patient [...] medications. 05/27/2017 Appointment: Edna Douglas WPtel: [phone] [phone] [place] (30 min) Complex 05/27/2017 Patient Education: [...] [phone] (30 min) Complex 02/24/2017 Patient Education: Patient [...] Chaney. 11/02/2016 [facility]ment[phone] [place] (15 min) Moderate 11/02/2016 Patient Education: Patient Medication Summary Completed 11/02/2016 Patient Education: Obesity Completed 11/02/2016 Patient Education: Patient Medication Summary Completed 10/08/2016 Visit Plan: Hypertension - well con troignaciaed [...] edema. 09/30/2016 Appointment: Sarai Almanza WPtel: [phone] [facility] (15 min) Moderate 09/30/2016 Patient Education: [...] edema. 09/10/2016 Appointment: Nata Hsu WPtel: [phone] [facility] (30 min) Complex 09/10/2016 Patient Education: Patient [...] edema. 08/20/2016 Appointment: Nata Hsu WPtel: [phone] [phone] (30 min) Complex 08/20/2016 Patient Education: Patient Medication Summary Completed 08/20/2016 [facility] [facility] Initiated 07/02/2016 Visit Plan: Chronic [...] 06/08/2016 Care Plan: Referral Order SNOMED-CT : [id number] Pending 06/08/2016 Visit Plan: URI - Pt [...] allergy spray. 04/02/2016 Appointment: Nata Hsu WPtel: [address] [place] [phone] (30 min) Complex 04/02/2016 Patient Education: Patient [...] [phone] (30 min) Complex 01/14/2016 Patient Education: Patient Medication Summary Completed 01/14/2016 Patient Education: Obesity Completed 01/14/2016 Care Plan: BMI Above normal followup DAVID F-MGMT EDUC & TRAIN 1 PT Pending 10/24/2015 Care Plan: X-RAY EXAM OF SHOULDER LOINC : 62781-3 Pending 10/24/2015 Visit Plan: Left shoulder pain [...] check. 10/02/2015 Appointment: Edna Douglas WPtel: [phone] (15 min) Moderate 10/02/2015 Patient Education: Patient [...] Completed 06/10/2015 Appointment: [facility]el[facility] (15 min) Moderate 04/22/2015 Visit Plan: [...] have surgical fixation - planning occurring at [facility]. Snoring - Sleep apnea symptoms [...] to medications. 01/22/2015 Appointment: Sarai Almanza WPtel: [address] [place], [place] [phone] [place] (S) New Patient 01/22/2015 Patient Education: Patient Medication Summary Completed 01/22/2015 Patient Education: Hypertension Completed 01/22/2015 [facility] [place] Referral Initiated Instructions Comment . Chronic [...] to further attempt to reduce peripheral edema. BIYN-qrsrmfqh-xruzdmob prilosec BID and carafate QID -discussed low [...] have surgical fixation - planning occurring at [facility]. Snoring - Sleep apnea symptoms [...]
--- OUTSIDE RECORDS SUMMARY | 2020-01-16 23:39 | XMS REPORT | CCD ---
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 [place] Medicare Part B [id number] 2017 Unknown Family history Father Diagnosis Age At Onset Hyperlipidemia Unknown Heart Attack Unknown Mother Diagnosis Age At Onset Arthritis Unknown Social History Social History Element Codes Description Effective Dates Marital status Unknown M arried Nathan 09/30/2016 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 Number of children Unknown 3 01/22/[address]: 590745907 Never smoker 01/22/[address]: 890091131 Never drinks alcohol 01/22/2015 Allergies, Adverse Reactions, [...] ICD-9: 790.21 ICD-10: R73.01 Active 05/27/2017 Unknown detention (current) use of [...] cose ICD-9: 790.21 ICD-10: R73.01 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 ICD-9: V58.61 [...] Date Stop Date Sta tus Fill Instructions venlafaxine ER 75 mg capsule,extended release 24 hr RxNorm: 802103 Capsule(s) TAKE 1 CAPSULE BY MOUTH ONCE DAILY 06/23/2018 06/17/2019 Active Generic For:*EFFEXOR XR 75MG 06/19/2017 12:23:45 PM sodium bicarbonate 6 50 mg tablet RxNorm: 681355 Tablet(s) TAKE 2 TABL ETS BY MOUTH TWICE DAILY 06/23/2018 12/19/2018 Active 12/20/2017 9:10:59 AM Coumadin 1 mg tablet RxNorm: 834659 1 Tablet(s) PO daily 06/17/2018 07/16/2018 Active Coumadin 1 mg tablet RxNorm: 941703 1 Tablet(s) PO daily 06/17/2018 06/16/2018 Inactive clonazepam 0.5 mg ta blet RxNorm: 527816 1 Tablet(s) PO BID 06/08/2018 11/04/2018 Active Carafate 1 gram tablet RxNorm: 133348 TAKE ONE TABLET BY MOUTH BEFORE MEALS AN D AT BEDTIME 05/18/2018 07/12/2018 Active Generic For:CARAFATE 1GM 8:38:28 AM Synthroid 137 mcg ta blet RxNorm: 874230 TAKE 1 TABLET BY MOUT H ONCE DAILY 05/18/2018 11/13/2018 Ac tive Generic For:SYNTHROID 137MCG TAB 2017 8:57:54 AM spironolactone 25 mg tablet RxNorm: 310218 TAKE 1 TABLET BY MOUT H EVERY DAY 05/18/2018 05/12/2019 Ac tive Generic For:*ALDACTONE 25MG 05/18/2018 8:57:50 AM allopurinol 300 mg t ablet RxNorm: 818780 TAKE 1 TABLET BY MOUT H ONCE DAILY. 04/18/2018 10/14/2018 Ac tive Generic For:ZYLOPRIM 300 MG TABLET 03/22 9:13:47 AM Lasix 20 mg tablet RxNorm: 307972 TAKE ONE TABLET BY MOUTH DAILY 04/18/2018 08/15/2018 Ac tive Generic For:LASIX 20MG 04/18/2018 9:13: 50 AM Carafate 1 gram tablet RxNorm: 612859 TAKE ONE TABLET BY MOUTH BEFORE MEALS AN D AT BEDTIME 04/18/2018 05/17/2018 Inactive Generic For:CARAFATE 1GM 1 9:32:51 AM Coumadin 5 mg tablet RxNorm: 373958 TAKE 1 TABLET BY MOUTH DIRECTED 03/21/2018 09/16/2018 Ac tive Generic For:COUMADIN 5MG TAB 03/21/2018 9:13:00 AM Carafate 1 gram tablet RxNorm: 469461 TAKE ONE TABLET BY MOUTH BEFORE MEALS AN D AT BEDTIME 03/21/2018 04/17/2018 Inactive Generic For:CARAFATE 1GM 1 9:14:24 AM Carafate 1 gram tablet RxNorm: 512902 1 Tablet(s) PO AC & HS 02/17/2018 03/20/2018 Inactive atenolol 100 mg tablet RxNorm: 329737 1 Tablet(s) PO daily 02/04/2018 09/01/2018 Active atenolol 50 mg tablet RxNorm: 476371 1 Tablet(s) PO daily 02/03/2018 02/03/2018 Inactive omeprazole 20 mg cap sean,delayed release RxNorm: 564505 1 Capsule(s) BID 01/21/2018 01/15/2019 Ac tive Generic For:PRILOSEC 20MG 07/22/2017 8:5 8:20 AM Carafate 1 gram tablet RxNorm: 807794 1 Tablet(s) PO AC & HS 01/21/2018 02/16/2018 Inactive Carafate 1 gram tablet RxNorm: 717124 1 Tablet(s) PO AC & HS 01/18/2018 01/20/2018 Inactive Carafate 1 gram tablet RxNorm: 908181 1 Tablet(s) PO AC & HS 01/18/2018 02/27/2018 Inactive Carafate 1 gram tablet RxNorm: 730006 1 Tablet(s) PO AC & HS TAKE ONE TABLET B Y MOUTH TWICE DAILY 01/18/2018 05/17/2018 Inactive Generic For:CARAFATE 1GM 0 12/20/2017 9:10:56 AM omeprazole 20 mg cap sean,delayed release RxNorm: 673840 Capsule(s) TAKE 1 CAP SEAN BY MOUTH EVERY DAY 01/17/2018 01/20/2018 Inactive Generic For:PRILOSEC 20MG 0 07/22/2017 8:58:20 AM omeprazole 20 mg cap sean,delayed release RxNorm: 745719 Capsule(s) TAKE 1 CAP SEAN BY MOUTH EVERY DAY 01/14/2018 01/16/2018 Inactive Generic For:PRILOSEC 20MG 07/22/2017 8:58:20 AM Plavix 75 mg tablet RxNorm: 918367 1 Tablet(s) PO daily 01/07/2018 07/05/2018 Inactive clonazepam 0.5 mg ta blet RxNorm: 888927 1 Tablet(s) PO BID 01/07/2018 06/05/2018 Inactive Carafate 1 gram tablet RxNorm: 260232 1 Tablet(s) PO AC & HS 01/04/2018 01/17/2018 Inactive Lasix 20 mg tablet RxNorm: 107954 TAKE ONE TABLET BY MOUTH DAILY 12/20/2017 04/17/2018 In active Generic For:LASIX 20MG 12/20/2017 9:11: 03 AM sodium bicarbonate 6 50 mg tablet RxNorm: 738104 TAKE 2 TABLETS BY JAVON TH TWICE DAILY 12/20/2017 06/17/2018 In active 12/20/2017 9:10:59 AM Carafate 1 gram tablet RxNorm: 294221 TAKE ONE TABLET BY MOUTH TWICE DAILY 12/20/2017 01/17/2018 In active Generic For:CARAFATE 1GM 12/20/2017 9:1 0:56 AM Synthroid 137 mcg ta blet RxNorm: 193865 TAKE 1 TABLET BY MOUT H ONCE DAILY 11/19/2017 05/17/2018 In active Generic For:SYNTHROID 137MCG TAB 2017 8:58:04 AM Detrol LA 4 mg capsu le,extended release RxNorm: 543545 TAKE 1 CAPSULE BY JAVON TH ONCE DAILY 10/20/2017 04/13/2018 Inactive Generic For:DETROL LA 4MG C AP 10/20/2017 9:01:56 AM allopurinol 300 mg t ablet RxNorm: 323584 TAKE 1 TABLET BY MOUT H ONCE DAILY. 10/20/2017 04/17/2018 In active Generic For:ZYLOPRIM 300 MG TABLET 07/2017 9:01:59 AM Coumadin 5 mg tablet RxNorm: 106867 1 Tablet(s) PO UD 10/01/2017 03/20/2018 Inactive cyclobenzaprine 5 mg tablet RxNorm: 447320 1 Tablet(s) PO TID as needed myscle spasm 09/23/2017 10/12/2017 Inactive Lipitor 40 mg tablet RxNorm: 314448 TAKE 1 TABLET BY MOUTH ONCE DAILY 09/20/2017 09/14/2018 Ac tive Generic For:LIPITOR 40MG 09/20/2017 8:5 6:04 AM atenolol 100 mg tablet RxNorm: 349026 1 Tablet(s) PO daily 08/30/2017 02/03/2018 Inactive atenolol 50 mg tablet RxNorm: 893136 1 Tablet(s) PO daily 08/30/2017 08/30/2017 Inactive Lovenox 30 mg/0.3 mL subcutaneous syringe RxNorm: 224828 0.3 Milliliter(s) SQ Q12H 08/24/2017 09/06/2017 In active Lasix 20 mg tablet RxNorm: 509449 TAKE ONE TABLET BY MOUTH DAILY 08/23/2017 12/19/2017 In active Generic For:LASIX 20MG 08/21/2017 9:04: 27 AM Synthroid 137 mcg ta blet RxNorm: 615331 TAKE 1 TABLET BY MOUT H ONCE DAILY 08/23/2017 11/18/2017 In active Generic For:SYNTHROID 137MCG TAB 2017 9:04:30 AM Lovenox 30 mg/0.3 mL subcutaneous syringe RxNorm: 308121 0.3 Milliliter(s) SQ Q12H 08/10/2017 08/23/2017 In active clonazepam 0.5 mg ta blet RxNorm: 673492 1 Tablet(s) PO BID 08/04/2017 12/30/2017 Inactive Coumadin 4 mg tablet RxNorm: 415680 TAKE 1 TABLET BY MOUTH THREE TIMES PER [place] (WEDNESDAY, WEDNESDAY AND WEDNESDAY) 07/22/2017 02/16/2018 Inactive Generic For:COUMADIN 4MG 07/22/2017 8:58:26 AM Coumadin 4 mg tablet RxNorm: 648753 TAKE 1 TABLET BY MOUTH THREE TIMES PER [place] (WEDNESDAY, WEDNESDAY AND WEDNESDAY) 07/22/2017 02/16/2018 Inactive Generic For:COUMADIN 4MG 07/22/2017 8:58:26 AM omeprazole 20 mg cap sean,delayed release RxNorm: 163716 TAKE 1 CAPSULE BY JAVON TH EVERY DAY 07/22/2017 01/13/2018 Inactive Generic For:PRILOSEC 20MG 07/22/2017 8: 58:20 AM sodium bicarbonate 6 50 mg tablet RxNorm: 791731 TAKE 2 TABLETS BY JAVON TH TWICE DAILY 06/22/2017 12/18/2017 In active 06/19/2017 12:23:30 PM venlafaxine ER 75 mg capsule,extended release 24 hr RxNorm: 463746 TAKE 1 CAPSULE BY MOUTH ONCE DAILY 06/22/2017 06/16/2018 Inactive Generic For:*EFFEXOR XR 75M G 06/19/2017 12:23:45 PM Coumadin 5 mg tablet RxNorm: 073741 1 Tablet(s) PO UD 06/01/2017 09/30/2017 Inactive Keflex 500 mg capsule RxNorm: 266251 1 Capsule(s) PO TID 05/27/2017 06/02/2017 Inactive Synthroid 137 mcg ta blet RxNorm: 088306 TAKE 1 TABLET BY MOUT H ONCE DAILY 05/24/2017 08/21/2017 In active Generic For:SYNTHROID 137MCG TAB 2016 8:55:59 AM Carafate 1 gram tablet RxNorm: 710290 TAKE ONE TABLET BY MOUTH TWICE DAILY 05/24/2017 12/19/2017 In active Generic For:CARAFATE 1GM 05/24/2017 8:5 5:54 AM spironolactone 25 mg tablet RxNorm: 397565 1 Tablet(s) PO daily 05/24/2017 05/17/2018 Inactive Detrol LA 4 mg capsu le,extended release RxNorm: 888311 1 Capsule(s) PO daily TAKE 1 CAPSULE BY MOUTH ONCE DAILY 05/10/2017 10/19/2017 Inactive Generic For:DETROL LA 4MG CAP 02/19/2017 2:36:00 PM Lasix 20 mg tablet RxNorm: 401685 TAKE ONE TABLET BY MOUTH DAILY 04/23/2017 08/20/2017 In active Generic For:LASIX 20MG 04/23/2017 9:04: 01 AM Coumadin 4 mg tablet RxNorm: 187331 TAKE 1 TABLET BY MOUTH THREE TIMES PER [place] (WEDNESDAY, WEDNESDAY AND WEDNESDAY) 04/23/2017 07/21/2017 Inactive Generic For:COUMADIN 4MG 04/23/2017 9:04:05 AM allopurinol 300 mg t ablet RxNorm: 040893 TAKE 1 TABLET BY MOUT H ONCE DAILY. 04/23/2017 10/19/2017 In active Generic For:ZYLOPRIM 300 MG TABLET 08/2016 9:03:57 AM potassium chloride 2 0 mEq/15 mL oral liquid RxNorm: 102473 Milliliter(s) 30 Milliliter(s) (40mEq) PO daily 03/24/2017 07/21/2017 Inactive Lovenox 30 mg/0.3 mL subcutaneous syringe RxNorm: 382312 0.3 Milliliter(s) SQ Q12H 03/22/2017 03/26/2017 In active Lovenox 30 mg/0.3 mL subcutaneous syringe RxNorm: 638715 0.3 Milliliter(s) SQ Q12H 03/19/2017 03/20/2017 In active Lovenox 30 mg/0.3 mL subcutaneous syringe RxNorm: 137763 0.3 Milliliter(s) SQ Q12H 03/16/2017 03/18/2017 In active clonazepam 0.5 mg ta blet RxNorm: 400762 1 Tablet(s) PO BID 03/02/2017 07/28/2017 Inactive Lovenox 30 mg/0.3 mL subcutaneous syringe RxNorm: 208544 1 injection SQ BID do NOT take the night time dose the day before surgery, or the morning dose the day of surgery 03/01/2017 03/07/2017 Inactive Lovenox 30 mg/0.3 mL subcutaneous syringe RxNorm: 206919 1 injection SQ BID 03/01/2017 02/28/2017 In active Detrol LA 4 mg capsu le,extended release RxNorm: 065334 TAKE 1 CAPSULE BY JAVON TH ONCE DAILY 02/19/2017 05/09/2017 Inactive Generic For:DETROL LA 4MG C AP 02/19/2017 2:36:00 PM hydrocodone 5 mg-humberto taminophen 325 mg tablet RxNorm: 881563 1-2 Tablet(s) PO Q6 P RN 02/04/2017 No Stop Date Active Zetia 10 mg tablet RxNorm: 528289 TAKE 1 TABLET BY MOUTH DAILY 01/25/2017 04/13/2018 Inactive 01/23/2017 9:03:48 AM omeprazole 20 mg cap sean,delayed release RxNorm: 256127 TAKE 1 CAPSULE BY JAVON TH EVERY DAY 01/25/2017 07/21/2017 Inactive Generic For:PRILOSEC 20MG 01/23/2017 9: 03:45 AM Coumadin 4 mg tablet RxNorm: 503356 TAKE 1 TABLET BY MOUTH THREE TIMES PER [place] (WEDNESDAY, WEDNESDAY AND WEDNESDAY) 01/25/2017 04/22/2017 Inactive Generic For:COUMADIN 4MG 01/23/2017 9:03:51 AM sodium bicarbonate 6 50 mg tablet RxNorm: 580795 TAKE 2 TABLETS BY JAVON TH TWICE DAILY 12/24/2016 06/21/2017 In active 12/24/2016 9:09:27 AM Lasix 20 mg tablet RxNorm: 349644 1 Tablet(s) PO daily 12/24/2016 04/22/2017 Inactive Synthroid 137 mcg ta blet RxNorm: 535491 TAKE 1 TABLET BY MOUT H ONCE DAILY 11/24/2016 05/22/2017 In active Generic For:SYNTHROID 137MCG TAB 2016 9:04:37 AM Coumadin 4 mg tablet RxNorm: 502333 TAKE 1 TABLET BY MOUTH THREE TIMES PER [place] (WEDNESDAY, WEDNESDAY AND WEDNESDAY) 11/24/2016 01/22/2017 Inactive Generic For:COUMADIN 4MG 11/24/2016 9:04:41 AM hydrocodone 5 mg-humberto taminophen 325 mg tablet RxNorm: 647985 1-2 Tablet(s) PO Q6 P RN 11/17/2016 02/03/2017 In active Carafate 1 gram tablet RxNorm: 234585 TAKE ONE TABLET BY MOUTH TWICE DAILY 10/27/2016 05/23/2017 In active Generic For:CARAFATE 1GM 10/26/2016 8:3 9:42 AM allopurinol 300 mg t ablet RxNorm: 811140 Tablet(s) TAKE 1 TABL ET BY MOUTH ONCE DAILY. 10/26/2016 04/22/2017 Inactive Lipitor 40 mg tablet RxNorm: 107433 1 Tablet(s) PO daily 09/25/2016 09/19/2017 Inactive Coumadin 4 mg tablet RxNorm: 656247 TAKE 1 TABLET BY MOUTH THREE TIMES PER [place] (WEDNESDAY, WEDNESDAY AND WEDNESDAY) 09/25/2016 11/23/2016 Inactive Generic For:COUMADIN 4MG 09/25/2016 8:55:58 AM Zetia 10 mg tablet RxNorm: 532882 1 Tablet(s) PO daily 09/25/2016 01/22/2017 Inactive gave 1 month of samples clonazepam 0.5 mg ta blet RxNorm: 178762 1 Tablet(s) PO BID 09/21/2016 02/16/2017 Inactive Lasix 20 mg tablet RxNorm: 845811 1 Tablet(s) PO daily 09/15/2016 12/23/2016 Inactive potassium chloride 2 0 mEq/15 mL oral liquid RxNorm: 173736 Milliliter(s) 30 Milliliter(s) (40mEq) PO daily 09/15/2016 01/12/2017 Inactive Lasix 20 mg tablet RxNorm: 237141 2 Tablet(s) PO daily 09/10/2016 09/12/2016 Inactive Lasix 20 mg tablet RxNorm: 993561 1 Tablet(s) PO daily 08/28/2016 08/30/2016 Inactive Lasix 20 mg tablet RxNorm: 574294 1 Tablet(s) PO daily 08/20/2016 08/22/2016 Inactive Detrol LA 4 mg capsu le,extended release RxNorm: 651631 TAKE 1 CAPSULE BY JAVON TH ONCE DAILY 07/27/2016 02/18/2017 Inactive Generic For:DETROL LA 4MG C AP 07/27/2016 9:08:27 AM Coumadin 4 mg tablet RxNorm: 959459 1 Tablet(s) PO 3 x week tue thur and sun 07/27/2016 09/24/2016 In active omeprazole 20 mg cap sean,delayed release RxNorm: 504645 Capsule(s) PO TAKE 1 CAPSULE BY MOUTH ONCE DAILY 07/27/2016 01/22/2017 Inactive venlafaxine ER 75 mg capsule,extended release 24 hr RxNorm: 846334 1 Capsule(s) PO daily 06/29/2016 06/21/2017 Inactive sodium bicarbonate 6 50 mg tablet RxNorm: 128856 TAKE 2 TABLETS BY JAVON TWICE DAILY 06/29/2016 12/23/2016 In active 06/27/2016 9:05:39 AM Coumadin 4 mg tablet RxNorm: 189439 1 Tablet(s) PO 3 x week tue thur and sun 06/09/2016 06/08/2016 In active Coumadin 4 mg tablet RxNorm: 284753 1 Tablet(s) PO 3 x week tue thur and sun 06/09/2016 07/26/2016 In active Zetia 10 mg tablet RxNorm: 061530 1 Tablet(s) PO daily 06/09/2016 06/08/2016 Inactive gave 1 month of samples Zetia 10 mg tablet RxNorm: 253335 1 Tablet(s) PO daily 06/09/2016 09/24/2016 Inactive gave 1 month of samples Effexor 75 mg tablet RxNorm: 078536 1 Tablet(s) PO daily 06/08/2016 06/28/2016 Inactive spironolactone 25 mg tablet RxNorm: 020566 1 Tablet(s) PO daily 06/08/2016 05/23/2017 Inactive Synthroid 137 mcg ta blet RxNorm: 032803 1 Tablet(s) PO daily 05/07/2016 11/02/2016 Inactive allopurinol 300 mg t ablet RxNorm: 445650 Tablet(s) TAKE 1 TABL ET BY MOUTH ONCE DAILY. 04/28/2016 10/24/2016 Inactive clonazepam 0.5 mg ta blet RxNorm: 106534 1 Tablet(s) PO BID 04/20/2016 09/15/2016 Inactive Flonase Allergy Reli ef 50 mcg/actuation nasal spray,suspension RxNorm: 5865438 1 Webb NASAL BID 04/02/2016 No Stop Date Active Zithromax Z-Thomas 250 mg tablet RxNorm: 624515 Tablet(s) PO 04/02/2016 08/27/2016 Inactive cetirizine 10 mg tablet RxNorm: 1644655 1 Tablet(s) PO daily 04/02/2016 05/01/2016 Inactive Carafate 1 gram tablet RxNorm: 261675 Tablet(s) TAKE 1 TABLET TWICE A DAY FOR 30 DAYS 03/30/2016 10/25/2016 Inactive Generic For:CARAFATE 1GM 02/08/2015 12:3 6:39 PM Plavix 75 mg tablet RxNorm: 035630 1 Tablet(s) PO daily 03/11/2016 09/06/2016 Inactive sodium bicarbonate 6 50 mg tablet RxNorm: 864072 Tablet(s) 2 Tablet(s) PO BID 02/28/2016 06/26/2016 In active omeprazole 20 mg cap sean,delayed release RxNorm: 303702 Capsule(s) PO TAKE 1 CAPSULE BY MOUTH ONCE DAILY 01/31/2016 07/26/2016 Inactive Fish Oil 1,000 mg ca psule RxNorm: 1 Capsule(s) PO BID 01/14/2016 No Stop Date Active Synthroid 137 mcg ta blet RxNorm: 390684 1 Tablet(s) PO daily 01/14/2016 05/06/2016 Inactive Detrol LA 4 mg capsu le,extended release RxNorm: 288081 TAKE 1 CAPSULE BY JAVON TH ONCE DAILY 12/30/2015 07/26/2016 Inactive Generic For:DETROL LA 4MG C AP 12/30/2015 9:11:01 AM potassium chloride 2 0 mEq/15 mL oral liquid RxNorm: 104657 Milliliter(s) 30 Milliliter(s) (40mEq) PO daily 12/02/2015 03/30/2016 Inactive sodium bicarbonate 6 50 mg tablet RxNorm: 348150 Tablet(s) 2 Tablet(s) PO BID 10/31/2015 02/27/2016 In active Lipitor 40 mg tablet RxNorm: 084154 1 Tablet(s) PO daily 10/09/2015 09/24/2016 Inactive sodium bicarbonate 6 50 mg tablet RxNorm: 482308 2 Tablet(s) PO BID 10/01/2015 10/30/2015 Inactive allopurinol 300 mg t ablet RxNorm: 690595 TAKE 1 TABLET BY MOUT H ONCE DAILY. 10/01/2015 04/27/2016 In active Generic For:ZYLOPRIM 300 MG TABLET 09/19 9:21:15 AM clonazepam 0.5 mg ta blet RxNorm: 555878 1 Tablet(s) PO BID 09/30/2015 04/19/2016 Inactive Coumadin 5 mg tablet RxNorm: 915387 1 Tablet(s) PO daily 09/27/2015 05/31/2017 Inactive Generic For:COUMADIN 5MG TAB N O T I C E PRESCRIPTION PREVIOUSLY AUTHORIZED BY DOCTOR:BOBBY ZULETA Synthroid 125 mcg ta blet RxNorm: 245383 1 Tablet(s) PO daily 09/27/2015 09/26/2015 Inactive Synthroid 125 mcg ta blet RxNorm: 293929 1 Tablet(s) PO daily 09/27/2015 01/13/2016 Inactive Carafate 1 gram tablet RxNorm: 123103 Tablet(s) TAKE 1 TABLET TWICE A DAY FOR 30 DAYS 09/02/2015 03/29/2016 Inactive Generic For:CARAFATE 1GM 02/08/2015 12:3 6:39 PM sodium bicarbonate 6 50 mg tablet RxNorm: 618589 2 Tablet(s) PO BID 09/02/2015 09/30/2015 Inactive Prilosec 20 mg capsu le,delayed release RxNorm: 047790 TAKE 1 CAPSULE BY JAVON TH ONCE DAILY 08/02/2015 01/28/2016 Inactive Generic For:PRILOSEC 20MG 08/02/2015 10:03:09 AM N O T I C E PRESCRIPTION PREVIOUSLY AUTHORIZED BY DOCTOR:BOBBY ZULETA Zyrtec 10 mg capsule RxNorm: 2220490 1 Capsule(s) PO daily 07/15/2015 08/13/2015 Inactive Keflex 500 mg capsule RxNorm: 777491 1 Capsule(s) PO TID 07/15/2015 07/21/2015 Inactive cetirizine 10 mg cap sean RxNorm: 7512850 1 Capsule(s) PO daily 07/15/2015 08/13/2015 Inactive hydrocodone 5 mg-humberto taminophen 325 mg tablet RxNorm: 313475 1-2 Tablet(s) PO Q6 P RN 06/10/2015 11/16/2016 In active sodium bicarbonate 6 50 mg tablet RxNorm: 963635 2 Tablet(s) PO BID 06/03/2015 08/31/2015 Inactive Detrol LA 4 mg capsu le,extended release RxNorm: 110444 TAKE 1 CAPSULE BY JAVON TH ONCE DAILY 06/03/2015 12/29/2015 Inactive Generic For:DETROL LA 4MG C AP N O T I C E PRESCRIPTION PREVIOUSLY AUTHORIZED BY DOCTOR:BOBBY ZULETA atenolol 50 mg tablet RxNorm: 376126 1 Tablet(s) PO daily TAKE 1 TABLET BY MO UTH DAILY 05/07/2015 08/23/2017 Inactive Generic For:TENORMIN 50MG 05/04/2015 9:07:22 AM spironolactone 25 mg tablet RxNorm: 777658 1 Tablet(s) PO daily 05/06/2015 06/07/2016 Inactive venlafaxine ER 75 mg capsule,extended release 24 hr RxNorm: 891688 1 Capsule(s) PO daily 05/04/2015 06/28/2016 Inactive atenolol 50 mg tablet RxNorm: 489964 TAKE 1 TABLET BY MOUTH DAILY 05/04/2015 05/06/2015 Inactive Generic For:TENORMIN 50MG 05/04/2015 9: 07:22 AM Synthroid 150 mcg ta blet RxNorm: 720735 TAKE 1 TABLET BY MOUT H ONCE DAILY. 04/05/2015 09/26/2015 In active Generic For:SYNTHROID 150MCG TAB 2014 4:45:40 PM N O T I C E PRESCRIPTION PREVIOUSLY AUTHORIZED BY DOCTOR:BOBBY ZULETA Effexor 75 mg tablet RxNorm: 360769 1 Tablet(s) PO daily 04/05/2015 07/03/2015 Inactive Coumadin 5 mg tablet RxNorm: 803611 TAKE 1 AND 1/2 TABLETS BY MOUTH ONCE MYRANDA LY 04/04/2015 09/26/2015 In active Generic For:COUMADIN 5MG TAB N O T I C E PRESCRIPTION PREVIOUSLY AUTHORIZED BY DOCTOR:BOBBY ZULETA clonazepam 0.5 mg ta blet RxNorm: 814580 1 Tablet(s) PO BID 03/13/2015 11/05/2015 Inactive sodium bicarbonate 6 50 mg tablet RxNorm: 478375 2 Tablet(s) PO BID 03/08/2015 06/02/2015 Inactive allopurinol 300 mg t ablet RxNorm: 688910 TAKE 1 TABLET BY MOUT H ONCE DAILY. 03/05/2015 09/30/2015 In active N O T I C E PRESCRIPTION PREVIOUSLY A UTHORIZED BY DOCTOR:BOBBY ZULETA Plavix 75 mg tablet RxNorm: 284818 1 Tablet(s) PO daily 02/12/2015 09/09/2015 Inactive clonazepam 0.5 mg ta blet RxNorm: 727914 1 Tablet(s) PO BID 02/11/2015 03/11/2015 Inactive Carafate 1 gram tablet RxNorm: 530408 TAKE 1 TABLET TWICE A DAY FOR 30 DAYS 02/08/2015 02/07/2015 In active Generic For:CARAFATE 1GM 02/08/2015 12:3 6:39 PM Carafate 1 gram tablet RxNorm: 484091 Tablet(s) TAKE 1 TABLET TWICE A DAY FOR 30 DAYS 02/08/2015 09/01/2015 Inactive Generic For:CARAFATE 1GM 02/08/2015 12:3 6:39 PM potassium chloride 2 0 mEq/15 mL oral liquid RxNorm: 821911 30 Milliliter(s) (40m Eq) PO daily 02/05/2015 12/01/2015 Inactive atenolol 50 mg tablet RxNorm: 897296 1 Tablet(s) PO daily 02/04/2015 05/03/2015 Inactive [SAVINGS FOR NON-COVERED DRUGS -- BIN: 680, PCN: ASPROD1, Group: XXXXX, ID# XXXXXXX, Questions: . THIS IS NOT INSURANCE.] potassium chloride 2 0 mEq/15 mL oral liquid RxNorm: 171363 30 Milliliter(s) (40m Eq) PO daily 01/08/2015 02/04/2015 Inactive potassium chloride 2 0 mEq/15 mL oral liquid RxNorm: 595143 30 Milliliter(s) (40m Eq) PO daily 12/07/2014 01/07/2015 Inactive atenolol 50 mg tablet RxNorm: 773295 1 Tablet(s) PO daily 11/09/2014 11/08/2014 Inactive atenolol 50 mg tablet RxNorm: 260755 1 Tablet(s) PO daily 11/09/2014 02/03/2015 Inactive [SAVINGS FOR NON-COVERED DRUGS -- BIN: 974, PCN: ASPROD1, Group: XXXXX, ID# XXXXXXX, Questions: . THIS IS NOT INSURANCE.] Voltaren 1 % topical gel RxNorm: 276109 TOP No St art Date Active verapamil ER (HS) 24 0 mg tablet,extended release 24 hr RxNorm: 963460 1 Tablet(s) PO daily No Start Date Active aspirin 81 mg tablet RxNorm: 886243 1 Tablet(s) PO daily No Start Date Active Zofran 4 mg tablet RxNorm: 816671 1 Tablet(s) PO PRN No Start Date Active B12 1000 mcg RxNorm: 1 Tablet(s) PO daily No Start Date Active magnesium oxide 400 mg capsule RxNorm: 019952 2 Capsule(s) PO BID No Start Date Active Synthroid 150 mcg ta blet RxNorm: 587651 1 Tablet(s) PO daily No Start Date 04/04/2015 Inactive Coumadin 5 mg tablet RxNorm: 891998 1 Tablet(s) PO daily No Start Date 04/03/2015 Inactive cranberry 1,000 mg c apsule RxNorm: 229484 1 Capsule(s) PO daily No Start Date 04/13/2018 Inactive allopurinol 300 mg t ablet RxNorm: 065599 1 Tablet(s) PO daily No Start Date 03/04/2015 Inactive Prilosec 20 mg capsu le,delayed release RxNorm: 894999 1 Capsule(s) PO PRN No Start Date 08/01/2015 Inactive potassium chloride 2 0 mEq/15 mL oral liquid RxNorm: 869563 30 Milliliter(s) (40m Eq) PO daily No Start Date 12/06/2014 Inactive atenolol 50 mg tablet RxNorm: 604905 1 Tablet(s) PO daily No Start Date 08/29/2017 Inactive Lipitor 40 mg tablet RxNorm: 024478 1 Tablet(s) PO daily No Start Date 09/19/2017 Inactive Effexor 75 mg tablet RxNorm: 485592 1 Tablet(s) PO daily No Start Date 04/04/2015 Inactive Carafate 1 gram tablet RxNorm: 419088 1 Tablet(s) PO BID No Start Date 02/07/2015 Inactive clonazepam 0.5 mg ta blet RxNorm: 454122 1 Tablet(s) PO BID No Start Date 02/10/2015 Inactive Plavix 75 mg tablet RxNorm: 761496 1 Tablet(s) PO daily No Start Date 02/11/2015 Inactive sodium bicarbonate 6 50 mg tablet RxNorm: 607755 2 Tablet(s) PO BID No Start Date 09/01/2015 Inactive Lovenox 30 mg/0.3 mL subcutaneous syringe RxNorm: 125920 0.3 Milliliter(s) SQ Q12H No Start Date 03/15/2017 Inactive Fish Oil 1,000 mg ca psule RxNorm: 1 Capsule(s) PO daily No Start Date 01/13/2016 Inactive Detrol LA 4 mg capsu le,extended release RxNorm: 010346 1 Capsule(s) PO daily No Start Date [...] fatigue ICD-10: R53.83 ICD-9: 780.79 08/20/2016 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 ICD-10: Z79.899 ICD-9: V58.69 [...] Code Item Item Code Result Date Pt [id number] PT 17.8 seconds 07/08/2018 Pt Psj1403 INR 1.5 07/08/2018 Pt Lhu3376 Low Intensity - 1.5-2.0 07/08/2018 Pt Xyu6530 Mod intensity - 2.0-3.0 07/08/2018 Pt Upw4939 Hi intensity - 3.0-4.0 07/08/2018 Pt Coe9629 PT 19.2 seconds 07/01/2018 Pt Nuh1265 INR 1.7 07/01/2018 Pt Rzu8149 Low Intensity - 1.5-2.0 07/01/2018 Pt Jlh5688 Mod intensity - 2.0-3.0 07/01/2018 Pt Esf7714 Hi intensity - 3.0-4.0 07/01/2018 Pt Yxo2239 PT 17.4 seconds 06/23/2018 Pt Etu8439 INR 1.5 06/23/2018 Pt Lfw1074 Low Intensity - 1.5-2.0 06/23/2018 Pt Nrl2426 Mod intensity - 2.0-3.0 06/23/2018 Pt Qqt6530 Hi intensity - 3.0-4.0 06/23/2018 Pt Ofg1600 PT 18.4 seconds 06/17/2018 Pt Ras5571 INR 1.6 06/17/2018 Pt Yow3293 Low Intensity - 1.5-2.0 06/17/2018 Pt Tvh9617 Mod intensity - 2.0-3.0 06/17/2018 Pt Yht2555 Hi intensity - 3.0-4.0 06/17/2018 Sed Rate [...] 22.0 % 06/08/2018 Cbc With Differential Ord2 Gem% 9.4 % 06/08/2018 Cbc With Differential Ord2 MCH 30.4 pg 06/08/2018 Cbc With Differential Ord2 Eos% 2.4 % 06/08/2018 Cbc With Differential Ord2 MCHC 34.2 pg 06/08/2018 Cbc With Differential Ord2 PLT 197 K/ul 06/08/2018 Cbc With Differential Ord2 Baso% 1.1 % 06/08/2018 Cbc With Differential Ord2 RDW 14.8 % 06/08/2018 Cbc With Differential Ord2 Neut ABS# 3.55 K/ul 06/08/2018 Cbc With Differential Ord2 Lymph ABS# 1.20 K/ul 06/08/2018 Cbc With Differential Ord2 Gem ABS# 0.5 K/ul 06/08/2018 Cbc With Differential Ord2 Eos ABS# 0.1 K/ul 06/08/2018 Cbc With Differential Ord2 Baso ABS# 0.1 K/ul 06/08/2018 C-Reactive Protein Qnt Crqnt CRP 0.1 mg/dl 06/08/2018 Pt Yhj1343 PT 17.6 seconds 06/08/2018 Pt Cdo2736 INR 1.5 06/08/2018 Pt Txh8279 Low Intensity - 1.5-2.0 06/08/2018 Pt Tny0251 Mod intensity - 2.0-3.0 06/08/2018 Pt Kwb3397 Hi intensity - 3.0-4.0 06/08/2018 Pt Cya5122 PT 16.8 seconds 05/10/2018 Pt Tmq0239 INR 1.4 05/10/2018 Pt Eue0672 Low Intensity - 1.5-2.0 05/10/2018 Pt Wzl7857 Mod intensity - 2.0-3.0 05/10/2018 Pt Cjj6339 Hi intensity - 3.0-4.0 05/10/2018 Pt Rrb8869 PT 16.7 seconds 05/04/2018 Pt Kqk7856 INR 1.4 05/04/2018 Pt Tzk3015 Low Intensity - 1.5-2.0 05/04/2018 Pt Lar8881 Mod intensity - 2.0-3.0 05/04/2018 Pt Psg1061 Hi intensity - 3.0-4.0 05/04/2018 Tsh Ord6 TSH (3rd IS) 2.36 uIU/mL 04/14/2018 Pt Ovy9610 PT 20.3 seconds 04/14/2018 Pt Way9558 INR 1.8 04/14/2018 Pt Dkd7640 Low Intensity - 1.5-2.0 04/14/2018 Pt Mdl2348 Mod intensity - 2.0-3.0 04/14/2018 Pt Ovb7408 Hi intensity - 3.0-4.0 04/14/2018 Lipid Ord30 CHOL 149 mg/dL 04/14/2018 Lipid Ord30 HDL 49.0 mg/dl 04/14/2018 Lipid Ord30 TRIG 161 mg/dL 04/14/2018 Lipid Ord30 LDL 68 mg/dL 04/14/2018 Lipid Ord30 C/HDL 3.0 Ratio 04/14/2018 Comp Metabolic Ccy955 NA 140 mEq/L 04/14/2018 Comp Metabolic Dpj771 K 4.1 mEq/L 04/14/2018 Comp Metabolic Ppr635 CL 105 mEq/L 04/14/2018 Comp Metabolic Bhq277 CO2 28.0 mEq/L 04/14/2018 Comp Metabolic Dzx514 AN ION GAP 11 04/14/2018 Comp Metabolic Kxg344 GL UCOSE 112 mg/dL 04/14/2018 Comp Metabolic Vkf185 Cr eat 1.0 mg/dL 04/14/2018 Comp Metabolic Pif995 eG FR 58 ml/min/1.73m2 04/14 Comp Metabolic Rsl832 BUN 20 mg/dL 04/14/2018 Comp Metabolic Cri377 B/ C Ratio 20.2 Ratio 04/14/2018 Comp Metabolic Ywe726 CA LCIUM 10.0 mg/dL 04/14/2018 Comp Metabolic Gmt559 AL K PHOS 51 U/L 04/14/2018 Comp Metabolic Jcu052 T(SGOT) 24 U/L 04/14/2018 Comp Metabolic Mok486 AL T(SGPT) 21 U/L 04/14/2018 Comp Metabolic Nsw109 BI LI T 0.8 mg/dL 04/14/2018 Comp Metabolic Guk403 AL BUMIN 4.2 g/dL 04/14/2018 Comp Metabolic Dmd816 TP RO 7.1 g/dL 04/14/2018 Comp Metabolic Hon607 GL OB 2.9 g/dL 04/14/2018 Comp Metabolic Aos936 A/ G Ratio 1.5 Ratio 04/14/2018 Comp Metabolic Hjl917 Os mo 283 mOsmo 04/14/2018 Cbc With [...] 30.7 pg 04/14/2018 Cbc With Differential Ord2 Gem% 10.6 % 04/14/2018 Cbc With Differential Ord2 Eos% 3.1 % 04/14/2018 Cbc With Differential Ord2 MCHC 33.9 pg 04/14/2018 Cbc With Differential Ord2 Baso% 1.2 % 04/14/2018 Cbc With Differential Ord2 PLT 189 K/ul 04/14/2018 Cbc With Differential Ord2 RDW 14.6 % 04/14/2018 Cbc With Differential Ord2 Neut ABS# 2.93 K/ul 04/14/2018 Cbc With Differential Ord2 Lymph ABS# 1.18 K/ul 04/14/2018 Cbc With Differential Ord2 Gem ABS# 0.5 K/ul 04/14/2018 Cbc With Differential Ord2 Eos ABS# 0.2 K/ul 04/14/2018 Cbc With Differential Ord2 Baso ABS# 0.1 K/ul 04/14/2018 %Hba1C Qkd647 % HbA1c 11864-9 5.9 % 04/14/2018 %Hba1C Bxc687 Gluc Ave 123 mg/dL 04/14/2018 Free T4 Rlq581 FREE T4 1.09 ng/dL 04/14/2018 Pt Kwk9315 PT 29.3 seconds 02/11/2018 Pt Zng5922 INR 2.8 02/11/2018 Pt Krr4960 Low Intensity - 1.5-2.0 02/11/2018 Pt Ihy4994 Mod intensity - 2.0-3.0 02/11/2018 Pt Dqz7596 Hi intensity - 3.0-4.0 02/11/2018 Cbc With Differential Ord2 WBC 4.66 K/ul 01/05/2018 Cbc With Differential Ord2 RBC 4.74 M/ul 01/05/2018 Cbc With Differential Ord2 HGB 14.5 g/dl 01/05/2018 Cbc With Differential Ord2 Neut% 56.7 % 01/05/2018 Cbc With Differential Ord2 HCT 43.2 % 01/05/2018 Cbc With Differential Ord2 Lymph% 27.3 % 01/05/2018 Cbc With Differential Ord2 MCV 91.1 fl 01/05/2018 Cbc With Differential Ord2 MCH 30.6 pg 01/05/2018 Cbc With Differential Ord2 Gem% 10.5 % 01/05/2018 Cbc With Differential Ord2 [...] 1.27 K/ul 01/05/2018 Cbc With Differential Ord2 Gem ABS# 0.5 K/ul 01/05/2018 Cbc With Differential Ord2 Eos ABS# 0.2 K/ul 01/05/2018 Cbc With Differential Ord2 Baso ABS# 0.1 K/ul 01/05/2018 Tsh Ord6 TSH (3rd IS) 2.34 uIU/mL 01/05/2018 Lipid Ord30 CHOL 156 mg/dL 01/05/2018 Lipid Ord30 HDL 48.0 mg/dl 01/05/2018 Lipid Ord30 TRIG 207 mg/dL 01/05/2018 Lipid Ord30 LDL 67 mg/dL 01/05/2018 Lipid Ord30 C/HDL 3.3 Ratio 01/05/2018 Pt Qnt3004 PT 20.7 seconds 01/05/2018 Pt Ufq6785 INR 1.8 01/05/2018 Pt Rbn3727 Low Intensity - 1.5-2.0 01/05/2018 Pt Myk7956 Mod intensity - 2.0-3.0 01/05/2018 Pt Wee1290 Hi intensity - 3.0-4.0 01/05/2018 %Hba1C Soc960 % HbA1c 48084-4 6.0 % 01/05/2018 %Hba1C Bsd783 Gluc Ave 126 mg/dL 01/05/2018 Free T4 Nwg447 FREE T4 1.05 ng/dL 01/05/2018 Comp Metabolic Dig906 NA 141 mEq/L 01/05/2018 Comp Metabolic Opu432 K 3.7 mEq/L 01/05/2018 Comp Metabolic Ptx019 CL 102 mEq/L 01/05/2018 Comp Metabolic Cww547 CO2 29.0 mEq/L 01/05/2018 Comp Metabolic Nnf889 AN ION GAP 14 01/05/2018 Comp Metabolic Ell055 GL UCOSE 136 mg/dL 01/05/2018 Comp Metabolic Yqi593 Cr eat 1.0 mg/dL 01/05/2018 Comp Metabolic Ipr800 eG FR 61 ml/min/1.73m2 01/05 Comp Metabolic Vbp712 BUN 22 mg/dL 01/05/2018 Comp Metabolic Wyh954 B/ C Ratio 22.9 Ratio 01/05/2018 Comp Metabolic Gbn823 CA LCIUM 9.7 mg/dL 01/05/2018 Comp Metabolic Vgl138 AL K PHOS 57 U/L 01/05/2018 Comp Metabolic Cye156 T(SGOT) 21 U/L 01/05/2018 Comp Metabolic Pjj219 AL T(SGPT) 19 U/L 01/05/2018 Comp Metabolic Prg573 BI LI T 0.9 mg/dL 01/05/2018 Comp Metabolic Byl437 AL BUMIN 4.1 g/dL 01/05/2018 Comp Metabolic Ytd429 TP RO 7.1 g/dL 01/05/2018 Comp Metabolic Dqx748 GL OB 3.0 g/dL 01/05/2018 Comp Metabolic Aqq116 A/ G Ratio 1.4 Ratio 01/05/2018 Comp Metabolic Aed752 Os mo 287 mOsmo 01/05/2018 Pt Qqn8409 PT 28.3 seconds 11/26/2017 Pt Btf7559 INR 2.6 11/26/2017 Pt Pil8668 Low Intensity - 1.5-2.0 11/26/2017 Pt Gsx4738 Mod intensity - 2.0-3.0 11/26/2017 Pt Cwm2001 Hi intensity - 3.0-4.0 11/26/2017 Pt Jjn2456 PT 36.5 seconds 11/19/2017 Pt Wrj8165 INR 3.6 11/19/2017 Pt Pbk9792 Low Intensity - 1.5-2.0 11/19/2017 Pt Eme8240 Mod intensity - 2.0-3.0 11/19/2017 Pt Huc0683 Hi intensity - 3.0-4.0 11/19/2017 Pt Rae9864 PT 22.9 seconds 10/15/2017 Pt Fjm2047 INR 2.0 10/15/2017 Pt Koi0786 Low Intensity - 1.5-2.0 10/15/2017 Pt Mgw9850 Mod intensity - 2.0-3.0 10/15/2017 Pt Vcm9360 Hi intensity - 3.0-4.0 10/15/2017 Pt Nfi0992 PT 25.9 seconds 10/01/2017 Pt Jje0161 INR 2.4 10/01/2017 Pt Qdg7913 Low Intensity - 1.5-2.0 10/01/2017 Pt Bnq1243 Mod intensity - 2.0-3.0 10/01/2017 Pt Qfo8336 Hi intensity - 3.0-4.0 10/01/2017 Pt Zfo8619 PT 20.6 seconds 09/24/2017 Pt Jia1486 INR 1.8 09/24/2017 Pt Ldi7084 Low Intensity - 1.5-2.0 09/24/2017 Pt Mxx1333 Mod intensity - 2.0-3.0 09/24/2017 Pt Gqb2665 Hi intensity - 3.0-4.0 09/24/2017 Pt Zci1158 PT 21.0 seconds 09/15/2017 Pt Ipt8805 INR 1.8 09/15/2017 Pt Jhw1777 Low Intensity - 1.5-2.0 09/15/2017 Pt Vbj3560 Mod intensity - 2.0-3.0 09/15/2017 Pt Dac9410 Hi intensity - 3.0-4.0 09/15/2017 Pt Rfy0541 PT 19.0 seconds 09/03/2017 Pt Iav0364 INR 1.6 09/03/2017 Pt Ltr7144 Low Intensity - 1.5-2.0 09/03/2017 Pt Auh1055 Mod intensity - 2.0-3.0 09/03/2017 Pt Vfc9004 Hi intensity - 3.0-4.0 09/03/2017 Pt Ajk2291 PT 17.6 seconds 08/23/2017 Pt Kxd3105 INR 1.5 08/23/2017 Pt Voc6836 Low Intensity - 1.5-2.0 08/23/2017 Pt Tep8777 Mod intensity - 2.0-3.0 08/23/2017 Pt Qek9905 Hi intensity - 3.0-4.0 08/23/2017 Pt Ysu4618 PT 12.7 seconds 08/20/2017 Pt Gof9119 INR 1.0 08/20/2017 Pt Myl3709 Low Intensity - 1.5-2.0 08/20/2017 Pt Dhb5166 Mod intensity - 2.0-3.0 08/20/2017 Pt Vcy5861 Hi intensity - 3.0-4.0 08/20/2017 Pt Ntu3697 PT 12.9 seconds 08/17/2017 Pt Mpe4700 INR 1.0 08/17/2017 Pt Hoe3653 Low Intensity - 1.5-2.0 08/17/2017 Pt Ggd4197 Mod intensity - 2.0-3.0 08/17/2017 Pt Lak8338 Hi intensity - 3.0-4.0 08/17/2017 Pt Vyt7673 PT 18.5 seconds 08/10/2017 Pt Jxy4838 INR 1.6 08/10/2017 Pt Gxa5900 Low Intensity - 1.5-2.0 08/10/2017 Pt Odq9315 Mod intensity - 2.0-3.0 08/10/2017 Pt Uei1783 Hi intensity - 3.0-4.0 08/10/2017 Tsh Ord6 [...] 14.7 % 05/27/2017 Cbc With Differential Ord2 Gem% 8.1 % 05/27/2017 Cbc With Differential Ord2 [...] 1.11 K/ul 05/27/2017 Cbc With Differential Ord2 Gem ABS# 0.6 K/ul 05/27/2017 Cbc With Differential Ord2 Eos ABS# 0.2 K/ul 05/27/2017 Cbc With Differential Ord2 Baso ABS# 0.1 K/ul 05/27/2017 Lipid Ord30 CHOL 167 mg/dL 05/27/2017 Lipid Ord30 HDL 49.0 mg/dl 05/27/2017 Lipid Ord30 TRIG 347 mg/dL 05/27/2017 Lipid Ord30 LDL 49 mg/dL 05/27/2017 Lipid Ord30 C/HDL 3.4 Ratio 05/27/2017 %Hba1C Qsa197 % HbA1c 21348-4 5.9 % 05/27/2017 %Hba1C Uzr770 Gluc Ave 123 mg/dL 05/27/2017 Free T4 Kal741 FREE T4 0.91 ng/dL 05/27/2017 Comp Metabolic Kuv197 NA 138 mEq/L 05/27/2017 Comp Metabolic Qzh060 K 4.1 mEq/L 05/27/2017 Comp Metabolic Agt666 CL 101 mEq/L 05/27/2017 Comp Metabolic Hif135 CO2 31.0 mEq/L 05/27/2017 Comp Metabolic Ndd175 AN ION GAP 10 05/27/2017 Comp Metabolic Yvw495 GL UCOSE 117 mg/dL 05/27/2017 Comp Metabolic Ktx444 Cr eat 0.9 mg/dL 05/27/2017 Comp Metabolic Ixu518 eG FR 62 ml/min/1.73m2 05/27 Comp Metabolic Gof296 BUN 25 mg/dL 05/27/2017 Comp Metabolic Swb567 B/ C Ratio 26.6 Ratio 05/27/2017 Comp Metabolic Dni628 CA LCIUM 9.5 mg/dL 05/27/2017 Comp Metabolic Nvj530 AL K PHOS 73 U/L 05/27/2017 Comp Metabolic Gnr827 T(SGOT) 18 U/L 05/27/2017 Comp Metabolic Hhw670 AL T(SGPT) 12 U/L 05/27/2017 Comp Metabolic Vcc598 BI LI T 0.5 mg/dL 05/27/2017 Comp Metabolic Von179 AL BUMIN 4.1 g/dL 05/27/2017 Comp Metabolic Yvw015 TP RO 7.1 g/dL 05/27/2017 Comp Metabolic Skt012 GL OB 3.0 g/dL 05/27/2017 Comp Metabolic Bor542 A/ G Ratio 1.3 Ratio 05/27/2017 Comp Metabolic Kpb415 Os mo 281 mOsmo 05/27/2017 Pt Cic0729 PT 28.2 seconds 05/27/2017 Pt Blu4082 INR 2.6 05/27/2017 Pt Idy2377 Low Intensity - 1.5-2.0 05/27/2017 Pt Tak5828 Mod intensity - 2.0-3.0 05/27/2017 Pt Udh8183 Hi intensity - 3.0-4.0 05/27/2017 Magnesium Ord90 Mag 1.4 mg/dL 05/27/2017 Pt Lnu3636 PT 29.2 seconds 04/16/2017 Pt Uff4867 INR 2.7 04/16/2017 Pt Okt2481 Low Intensity - 1.5-2.0 04/16/2017 Pt Cnk0412 Mod intensity - 2.0-3.0 04/16/2017 Pt Oks0607 Hi intensity - 3.0-4.0 04/16/2017 Pt Qcv9872 PT 30.7 seconds 03/31/2017 Pt Fcn1565 INR 2.9 03/31/2017 Pt Zqj6802 Low Intensity - 1.5-2.0 03/31/2017 Pt Bph6687 Mod intensity - 2.0-3.0 03/31/2017 Pt Jbg0581 Hi intensity - 3.0-4.0 03/31/2017 Pt Rck6553 PT 21.3 seconds 03/26/2017 Pt Svr5308 INR 1.9 03/26/2017 Pt Zsk7626 Low Intensity - 1.5-2.0 03/26/2017 Pt Wvt6528 Mod intensity - 2.0-3.0 03/26/2017 Pt Sht1579 Hi intensity - 3.0-4.0 03/26/2017 Pt Mtf3009 PT 19.8 seconds 03/22/2017 Pt Dds2394 INR 1.7 03/22/2017 Pt Gcq4180 Low Intensity - 1.5-2.0 03/22/2017 Pt Pnb9637 Mod intensity - 2.0-3.0 03/22/2017 Pt Jro2726 Hi intensity - 3.0-4.0 03/22/2017 Pt Zns1080 PT 15.6 seconds 03/19/2017 Pt Yws0741 INR 1.3 03/19/2017 Pt Let8197 Low Intensity - 1.5-2.0 03/19/2017 Pt Rcz4249 Mod intensity - 2.0-3.0 03/19/2017 Pt Tct5901 Hi intensity - 3.0-4.0 03/19/2017 Pt Wie6345 PT 13.7 seconds 03/15/2017 Pt Vmy6214 INR 1.1 03/15/2017 Pt Otj3386 Low Intensity - 1.5-2.0 03/15/2017 Pt Ygq3351 Mod intensity - 2.0-3.0 03/15/2017 Pt Ibn1517 Hi intensity - 3.0-4.0 03/15/2017 Pt Imt7552 PT 25.8 seconds 01/28/2017 Pt Xki9151 INR 2.4 01/28/2017 Pt Xdz5792 Low Intensity - 1.5-2.0 01/28/2017 Pt Leu8124 Mod intensity - 2.0-3.0 01/28/2017 Pt Vzk4414 Hi intensity - 3.0-4.0 01/28/2017 Comp Metabolic Dnp237 NA 138 mEq/L 10/23/2016 Comp Metabolic Hse340 K 3.4 mEq/L 10/23/2016 Comp Metabolic Hec489 CL 100 mEq/L 10/23/2016 Comp Metabolic Yxe859 CO2 30.0 mEq/L 10/23/2016 Comp Metabolic Dhq274 AN ION GAP 11 10/23/2016 Comp Metabolic Akw962 GL UCOSE 139 mg/dL 10/23/2016 Comp Metabolic Wfr001 Cr eat 0.9 mg/dL 10/23/2016 Comp Metabolic Vay730 eG FR 62 ml/min/1.73m2 10/23 Comp Metabolic Pbz927 BUN 22 mg/dL 10/23/2016 Comp Metabolic Fst354 B/ C Ratio 23.4 Ratio 10/23/2016 Comp Metabolic Amm036 CA LCIUM 8.7 mg/dL 10/23/2016 Comp Metabolic Btd246 AL K PHOS 66 U/L 10/23/2016 Comp Metabolic Ezr801 T(SGOT) 20 U/L 10/23/2016 Comp Metabolic Zlw258 AL T(SGPT) 10 U/L 10/23/2016 Comp Metabolic Hhp674 BI LI T 0.5 mg/dL 10/23/2016 Comp Metabolic Oei542 AL BUMIN 3.5 g/dL 10/23/2016 Comp Metabolic Yve683 TP RO 6.3 g/dL 10/23/2016 Comp Metabolic Yhq433 GL OB 2.8 g/dL 10/23/2016 Comp Metabolic Kei747 A/ G Ratio 1.3 Ratio 10/23/2016 Comp Metabolic Acp039 Os mo 281 mOsmo 10/23/2016 Pt Crz3263 PT 26.8 seconds 10/23/2016 Pt Hew4943 INR 2.7 10/23/2016 Pt Xac9238 Low Intensity - 1.5-2.0 10/23/2016 Pt Bzj3056 Mod intensity - 2.0-3.0 10/23/2016 Pt Zzl8745 Hi intensity - 3.0-4.0 10/23/2016 %Hba1C Ugy553 % HbA1c 53067-3 6.4 % 10/23/2016 %Hba1C Ojj985 Gluc Ave 137 mg/dL 10/23/2016 Pt Slt6981 PT 28.3 seconds 09/25/2016 Pt Szl2584 INR 2.8 09/25/2016 Pt Zor1784 Low Intensity - 1.5-2.0 09/25/2016 Pt Qak3578 Mod intensity - 2.0-3.0 09/25/2016 Pt Xez8502 Hi intensity - 3.0-4.0 09/25/2016 Metabolic Ord15 [...] 09/25/2016 Metabolic Ord15 CALCIUM 8.8 mg/dL 09/25/2016 Comp Metabolic Soo082 NA 138 mEq/L 09/11/2016 Comp Metabolic Lox046 K 4.4 mEq/L 09/11/2016 Comp Metabolic Fgw202 CL 103 mEq/L 09/11/2016 Comp Metabolic Pko775 CO2 31.0 mEq/L 09/11/2016 Comp Metabolic Jtm478 AN ION GAP 8 09/11/2016 Comp Metabolic Vir537 GL UCOSE 146 mg/dL 09/11/2016 Comp Metabolic Lgu691 Cr eat 1.0 mg/dL 09/11/2016 Comp Metabolic Wuq045 eG FR 60 ml/min/1.73m2 09/11 Comp Metabolic Hbl895 BUN 16 mg/dL 09/11/2016 Comp Metabolic Qob987 B/ C Ratio 16.5 Ratio 09/11/2016 Comp Metabolic Mhb297 CA LCIUM 8.7 mg/dL 09/11/2016 Comp Metabolic Tir978 AL K PHOS 52 U/L 09/11/2016 Comp Metabolic Zau285 T(SGOT) 19 U/L 09/11/2016 Comp Metabolic Wjx521 AL T(SGPT) 11 U/L 09/11/2016 Comp Metabolic Sgi152 BI LI T 0.7 mg/dL 09/11/2016 Comp Metabolic Kss778 AL BUMIN 3.3 g/dL 09/11/2016 Comp Metabolic Xdf595 TP RO 5.8 g/dL 09/11/2016 Comp Metabolic Phq011 GL OB 2.5 g/dL 09/11/2016 Comp Metabolic Hff311 A/ G Ratio 1.3 Ratio 09/11/2016 Comp Metabolic Amj908 Os mo 280 mOsmo 09/11/2016 Pt Zle8670 PT 30.6 seconds 09/11/2016 Pt Hua7195 INR 3.2 09/11/2016 Pt Zns8685 Low Intensity - 1.5-2.0 09/11/2016 Pt Zfj5093 Mod intensity - 2.0-3.0 09/11/2016 Pt Xiz0884 Hi intensity - 3.0-4.0 09/11/2016 C-Reactive Protein Qnt Crqnt CRP 0.1 mg/dl 08/21/2016 Comp Metabolic Wzd194 NA 139 mEq/L 08/21/2016 Comp Metabolic Wty248 K 4.1 mEq/L 08/21/2016 Comp Metabolic Gho511 CL 102 mEq/L 08/21/2016 Comp Metabolic Atv601 CO2 30.0 mEq/L 08/21/2016 Comp Metabolic Pst415 AN ION GAP 11 08/21/2016 Comp Metabolic Gfy844 GL UCOSE 148 mg/dL 08/21/2016 Comp Metabolic Yyf174 Cr eat 1.0 mg/dL 08/21/2016 Comp Metabolic Qmk794 eG FR 55 ml/min/1.73m2 08/21 Comp Metabolic Azw515 BUN 21 mg/dL 08/21/2016 Comp Metabolic Fuj858 B/ C Ratio 20.2 Ratio 08/21/2016 Comp Metabolic Cdl832 CA LCIUM 9.4 mg/dL 08/21/2016 Comp Metabolic Yef828 AL K PHOS 63 U/L 08/21/2016 Comp Metabolic Ukz829 T(SGOT) 23 U/L 08/21/2016 Comp Metabolic Kws188 AL T(SGPT) 16 U/L 08/21/2016 Comp Metabolic Elt866 BI LI T 0.6 mg/dL 08/21/2016 Comp Metabolic Nrp865 AL BUMIN 3.9 g/dL 08/21/2016 Comp Metabolic Trt625 TP RO 6.8 g/dL 08/21/2016 Comp Metabolic Gsb396 GL OB 2.9 g/dL 08/21/2016 Comp Metabolic Ufm479 A/ G Ratio 1.4 Ratio 08/21/2016 Comp Metabolic Ssy769 Os mo 283 mOsmo 08/21/2016 Sed Rate Ord21 ESR 16 mm/hr 08/21/2016 Pt Hmx2368 PT 27.2 seconds 08/21/2016 Pt Ike7138 INR 2.7 08/21/2016 Pt Zsu4335 Low Intensity - 1.5-2.0 08/21/2016 Pt Mlj2263 Mod intensity - 2.0-3.0 08/21/2016 Pt Rvs3928 Hi intensity - 3.0-4.0 08/21/2016 Magnesium Ord90 Mag 1.9 mg/dL 08/21/2016 Pt Yno4518 PT 25.9 seconds 06/17/2016 Pt Ask0056 INR 2.5 06/17/2016 Pt Win0414 Low Intensity - 1.5-2.0 06/17/2016 Pt Sao4986 Mod intensity - 2.0-3.0 06/17/2016 Pt Hib7884 Hi intensity - 3.0-4.0 06/17/2016 Tsh Ord6 hTSH II 2.13 uIU/mL 06/08/2016 Free T4 Ple845 FREE T4 0.79 ng/dL 06/08/2016 %Hba1C Fyj020 % HbA1c 00069-7 6.2 % 06/08/2016 %Hba1C Rzp267 Gluc Ave 131 mg/dL 06/08/2016 Comp Metabolic Iil460 NA 138 mEq/L 06/08/2016 Comp Metabolic Qgu169 K 3.9 mEq/L 06/08/2016 Comp Metabolic Lum467 CL 105 mEq/L 06/08/2016 Comp Metabolic Imb049 CO2 27.0 mEq/L 06/08/2016 Comp Metabolic Eue857 AN ION GAP 10 06/08/2016 Comp Metabolic Xgr933 GL UCOSE 127 mg/dL 06/08/2016 Comp Metabolic Qyu231 Cr eat 1.0 mg/dL 06/08/2016 Comp Metabolic Jml157 eG FR 59 ml/min/1.73m2 06/08 Comp Metabolic Clo575 BUN 19 mg/dL 06/08/2016 Comp Metabolic Wlm885 B/ C Ratio 19.4 Ratio 06/08/2016 Comp Metabolic Avl484 CA LCIUM 9.2 mg/dL 06/08/2016 Comp Metabolic Irj073 AL K PHOS 77 U/L 06/08/2016 Comp Metabolic Doi931 T(SGOT) 19 U/L 06/08/2016 Comp Metabolic Yyy134 AL T(SGPT) 13 U/L 06/08/2016 Comp Metabolic Wqp198 BI LI T 0.5 mg/dL 06/08/2016 Comp Metabolic Iyq779 AL BUMIN 3.8 g/dL 06/08/2016 Comp Metabolic Zhy345 TP RO 6.6 g/dL 06/08/2016 Comp Metabolic Mnz707 GL OB 2.8 g/dL 06/08/2016 Comp Metabolic Khx711 A/ G Ratio 1.4 Ratio 06/08/2016 Comp Metabolic Vvt621 Os mo 280 mOsmo 06/08/2016 Pt Mmf7271 PT 36.1 seconds 06/08/2016 Pt Wwx0087 INR 3.9 06/08/2016 Pt Cki0930 Low Intensity - 1.5-2.0 06/08/2016 Pt Amm0702 Mod intensity - 2.0-3.0 06/08/2016 Pt Pbc1175 Hi intensity - 3.0-4.0 06/08/2016 Cbc With [...] 80.8 fl 06/08/2016 Cbc With Differential Ord2 Gem% 12.0 % 06/08/2016 Cbc With Differential Ord2 [...] 1.40 K/ul 06/08/2016 Cbc With Differential Ord2 Gem ABS# 0.7 K/ul 06/08/2016 Cbc With Differential Ord2 Eos ABS# 0.3 K/ul 06/08/2016 Cbc With Differential Ord2 Baso ABS# 0.1 K/ul 06/08/2016 Lipid Ord30 CHOL 149 mg/dL 06/08/2016 Lipid Ord30 HDL 46.0 mg/dl 06/08/2016 Lipid Ord30 TRIG 279 mg/dL 06/08/2016 Lipid Ord30 LDL 47 mg/dL 06/08/2016 Lipid Ord30 C/HDL 3.2 Ratio 06/08/2016 Pt Wql1429 PT 30.9 seconds 02/12/2016 Pt Erc7827 INR 3.2 02/12/2016 Pt Qve2662 Low Intensity - 1.5-2.0 02/12/2016 Pt Wjq0350 Mod intensity - 2.0-3.0 02/12/2016 Pt Iow8181 Hi intensity - 3.0-4.0 02/12/2016 Free T4 Rkq140 FREE T4 1.24 ng/dL 09/27/2015 %Hba1C Cya415 % HbA1c 29967-7 6.4 % 09/27/2015 %Hba1C Ibx502 Gluc Ave 137 mg/dL 09/27/2015 Tsh Ord6 hTSH II 0.37 uIU/mL 09/27/2015 Pt Unx9693 PT 26.2 seconds 09/27/2015 Pt Ckz3521 INR 2.5 09/27/2015 Pt Nua2316 Low Intensity - 1.5-2.0 09/27/2015 Pt Jdc6893 Mod intensity - 2.0-3.0 09/27/2015 Pt Sti2637 Hi intensity - 3.0-4.0 09/27/2015 Pt Dmn1354 PT 27.6 seconds 2015 Pt Tzv2547 INR 2.7 2015 Pt Xjq1144 Low Intensity - 1.5-2.0 2015 Pt Bdm8003 Mod intensity - 2.0-3.0 2015 Pt Heh6152 Hi intensity - 3.0-4.0 2015 %Hba1C Qcz598 % HbA1c 77319-1 6.1 % 06/11/2015 %Hba1C Kwi897 Gluc Ave 128 mg/dL 06/11/2015 Cbc With [...] Ord2 RDW 15.8 % 06/10/2015 Comp Metabolic Yfz617 NA 139 mEq/L 06/10/2015 Comp Metabolic Xrr434 K 4.1 mEq/L 06/10/2015 Comp Metabolic Vue106 CL 105 mEq/L 06/10/2015 Comp Metabolic Otw315 CO2 27.0 mEq/L 06/10/2015 Comp Metabolic Lcg741 AN ION GAP 11 06/10/2015 Comp Metabolic Mqt294 GL UCOSE 127 mg/dL 06/10/2015 Comp Metabolic Fwu824 Cr eat 1.0 mg/dL 06/10/2015 Comp Metabolic Jga672 eG FR 59 ml/min/1.73m2 06/10 Comp Metabolic Iph640 BUN 21 mg/dL 06/10/2015 Comp Metabolic Imt294 B/ C Ratio 21.2 Ratio 06/10/2015 Comp Metabolic Kze336 CA LCIUM 9.2 mg/dL 06/10/2015 Comp Metabolic Btd719 AL K PHOS 87 U/L 06/10/2015 Comp Metabolic Qod949 T(SGOT) 20 U/L 06/10/2015 Comp Metabolic Get902 AL T(SGPT) 17 U/L 06/10/2015 Comp Metabolic Jnc658 BI LI T 0.4 mg/dL 06/10/2015 Comp Metabolic Oys318 AL BUMIN 4.1 g/dL 06/10/2015 Comp Metabolic Gdi095 TP RO 7.2 g/dL 06/10/2015 Comp Metabolic Lyd746 GL OB 3.1 g/dL 06/10/2015 Comp Metabolic Epj069 A/ G Ratio 1.3 Ratio 06/10/2015 Comp Metabolic Llj942 Os mo 282 mOsmo 06/10/2015 Lipid Ord30 CHOL 161 mg/dL 06/10/2015 Lipid Ord30 HDL 49.0 mg/dl 06/10/2015 Lipid Ord30 TRIG 208 mg/dL 06/10/2015 Lipid Ord30 LDL 70 mg/dL 06/10/2015 Lipid Ord30 C/HDL 3.3 Ratio 06/10/2015 Tsh Ord6 hTSH II 0.86 uIU/mL 06/10/2015 Pt Lwo5973 PT 25.0 seconds 04/09/2015 Pt Xua2370 INR 2.4 04/09/2015 Pt Wco4727 Low Intensity - 1.5-2.0 04/09/2015 Pt Gqk7304 Mod intensity - 2.0-3.0 04/09/2015 Pt Szw9715 Hi intensity - 3.0-4.0 04/09/2015 B12 Ndj969 B12 402.00 pg/ml 01/22/2015 Pt Xgd8007 PT 27.2 seconds 01/22/2015 Pt Fxi9894 INR 2.6 01/22/2015 Pt Anj4109 Low Intensity - 1.5-2.0 01/22/2015 Pt Nvc3544 Mod intensity - 2.0-3.0 01/22/2015 Pt Rxt1979 Hi intensity - 3.0-4.0 01/22/2015 Tsh Ord6 hTSH II 0.65 uIU/mL 01/22/2015 Comp Metabolic Nnh291 NA 138 mEq/L 01/22/2015 Comp Metabolic Ffu413 K 4.1 mEq/L 01/22/2015 Comp Metabolic Nar713 CL 104 mEq/L 01/22/2015 Comp Metabolic Uzv496 CO2 29.0 mEq/L 01/22/2015 Comp Metabolic Lhj047 AN ION GAP 9 01/22/2015 Comp Metabolic Nmu621 GL UCOSE 106 mg/dL 01/22/2015 Comp Metabolic Tpm615 Cr eat 0.9 mg/dL 01/22/2015 Comp Metabolic Swx665 eG FR 63 ml/min/1.73m2 01/22 Comp Metabolic Zgd280 BUN 21 mg/dL 01/22/2015 Comp Metabolic Rec093 B/ C Ratio 22.3 Ratio 01/22/2015 Comp Metabolic Owv377 CA LCIUM 9.4 mg/dL 01/22/2015 Comp Metabolic Icq408 AL K PHOS 83 U/L 01/22/2015 Comp Metabolic Vkf849 T(SGOT) 23 U/L 01/22/2015 Comp Metabolic Zdx184 AL T(SGPT) 18 U/L 01/22/2015 Comp Metabolic Rpl778 BI LI T 0.8 mg/dL 01/22/2015 Comp Metabolic Wyz212 AL BUMIN 4.2 g/dL 01/22/2015 Comp Metabolic Kdf194 TP RO 7.3 g/dL 01/22/2015 Comp Metabolic Yoq087 GL OB 3.1 g/dL 01/22/2015 Comp Metabolic Puq493 A/ G Ratio 1.4 Ratio 01/22/2015 Comp Metabolic Had218 Os mo 279 mOsmo 01/22/2015 Free T4 Plt493 FREE T4 1.05 ng/dL 01/22/2015 Cbc With Differential Ord2 WBC 5.6 [...] With Differential Ord2 RDW 15.2 % 01/22/2015 Lipid Ord30 CHOL 166 mg/dL 01/22/2015 Lipid Ord30 HDL 48.0 mg/dl 01/22/2015 Lipid Ord30 TRIG 264 mg/dL 01/22/2015 Lipid Ord30 LDL 65 mg/dL 01/22/2015 Lipid Ord30 C/HDL 3.5 Ratio 01/22/2015 Review of Systems System Result Effective [...] Date URINALYSIS NONAUTO W /O SCOPE CPT-4: 12911 03/05/2017 Vital Signs Date Vital 04/14/2018 Blood Pressure 1: 116/78 Code: 8480-6 BMI: 41.6 Code: 72745-4 Heart Rate 1: 72 bpm Height: 5'1" SpO2: 98% Weight: 220 lbs 01/18/2018 Blood Pressure 1: 132/74 Code: 8480-6 BMI: 43.5 Code: 85205-8 Heart Rate 1: 70 bpm Height: 5'1" SpO2: 97% Weight: 230 lbs 01/04/2018 Blood Pressure 1: 134/76 Code: 8480-6 BMI: 42.7 Code: 28458-1 Heart Rate 1: 83 bpm Height: 5'1" SpO2: 98% Weight: 226 lbs 09/23/2017 Blood Pressure 1: 124/76 Code: 8480-6 BMI: 42.3 Code: 70702-2 Heart Rate 1: 94 bpm Height: 5'1" SpO2: 96% Weight: 224 lbs 05/27/2017 Blood Pressure 1: 146/78 Code: 8480-6 BMI: 41.4 Code: 68126-5 Heart Rate 1: 85 bpm Height: 5'1" SpO2: 98% Weight: 219 lbs 02/24/2017 Blood Pressure 1: 138/66 Code: 8480-6 BMI: 41.4 Code: 69329-6 Heart Rate 1: 78 bpm Height: 5'1" SpO2: 97% Weight: 219 lbs 11/02/2016 Blood Pressure 1: 144/72 Code: 8480-6 BMI: 46.1 Code: 31421-2 Heart Rate 1: 78 bpm Height: 5'1" SpO2: 98% Weight: 244 lbs 09/30/2016 Blood Pressure 1: 130/76 Code: 8480-6 BMI: 45.0 Code: 06429-4 Heart Rate 1: 86 bpm Height: 5'1" SpO2: 98% Weight: 238 lbs 09/10/2016 Blood Pressure 1: 136/68 Code: 8480-6 BMI: 46.3 Code: 00819-2 Heart Rate 1: 83 bpm Height: 5'1" SpO2: 98% Weight: 245 lbs 08/20/2016 Blood Pressure 1: 142/78 Code: 8480-6 BMI: 45.3 Code: 53323-4 Heart Rate 1: 84 bpm Height: 5'1" SpO2: 99% Weight: 240 lbs 06/08/2016 Blood Pressure 1: 134/76 Code: 8480-6 BMI: 44.2 Code: 40451-8 Heart Rate 1: 86 bpm Height: 5'1" SpO2: 96% Weight: 234 lbs 04/02/2016 Blood Pressure 1: 142/70 Code: 8480-6 BMI: 44.6 Code: 75207-7 Heart Rate 1: 78 bpm Height: 5'1" SpO2: 97% Weight: 236 lbs 01/14/2016 Blood Pressure 1: 146/72 Code: 8480-6 BMI: 44.2 Code: 10922-0 Heart Rate 1: 86 bpm Height: 5'1" SpO2: 96% Weight: 234 lbs 10/02/2015 Blood Pressure 1: 158/76 Code: 8480-6 BMI: 44.2 Code: 06953-7 Heart Rate 1: 67 bpm Height: 5'1" SpO2: 97% Weight: 234 lbs 07/15/2015 Blood Pressure 1: 200/90 Code: 8480-6 Blood Pressure 1: 148/78 Code: 8480-6 BMI: 44.0 Code: 29674-2 Heart Rate 1: 89 bpm Height: 5'1" SpO2: 97% Weight: 233 lbs 06/10/2015 Blood Pressure 1: 140/82 Code: 8480-6 BMI: 44.0 Code: 36137-9 Heart Rate 1: 78 bpm Height: 5'1" [...] wearing crocs and there was a new spanish on the floor: her foot didn't move [...] Encounters Encounter Performer Loca tion Codes Date ([id number]) [id number] EST. P ATIENT, LEVEL IV Diagnosis: Essential (primary) hypertension[ICD10: I10] Diagnosis: Hypothyroidism, unspecified[ICD10: E03.9] Diagnosis: Impaired fasting glucose[ICD10: R73.01] Diagnosis: detention (current) use of anticoagulants[ICD10: Z79.01] Edna Almanza MD, [facility] CPT-4: 54937 04/14/2018 ([id number]) [id number] EST. P ATIENT, LEVEL III Diagnosis: Localized edema[ICD10: R60.0] Diagnosis: Gastro-esophageal reflux disease without esophagitis[ICD10: K21.9] Edna Almanza MD, [facility] CPT-4: 46368 01/18/2018 ([id number]) [id number] EST. P ATIENT, LEVEL IV Diagnosis: Gastro-esophageal reflux disease without esophagitis[ICD10: K21.9] Diagnosis: Localized edema[ICD10: R60.0] Diagnosis: Essential (primary) hypertension[ICD10: I10] Diagnosis: Hypothyroidism, unspecified[ICD10: E03.9] Diagnosis: Impaired fasting glucose[ICD10: R73.01] Edna Almanza MD, [facility] CPT-4: 20865 01/04/2018 ([id number]) 17569 EST. P ATIENT, LEVEL IV Diagnosis: Essential (primary) hypertension[ICD10: I10] Diagnosis: detention (current) use of anticoagulants[ICD10: Z79.01] Diagnosis: Incisional hernia without obstruction or gangrene[ICD10: K43.2] Diagnosis: Right lower quadrant pain[ICD10: R10.31] Sarai Almanza MD, [facility] CPT-4: 23511 09/23/2017 ([id number]) 31297 EST. P ATIENT, LEVEL IV Diagnosis: Essential (primary) hypertension[ICD10: I10] Diagnosis: Mixed hyperlipidemia[ICD10: E78.2] Diagnosis: Hypothyroidism, unspecified[ICD10: E03.9] Diagnosis: Impaired fasting glucose[ICD10: R73.01] Diagnosis: detention (current) use of anticoagulants[ICD10: Z79.01] Edna Almanza MD, [facility] CPT-4: 35500 05/27/2017 55830 EST. PATIENT, LEVEL III Diagnosis: Pain in right hip[ICD10: M25.551] Nata Almanza MD, [facility] CPT-4: 52921 02/24/2017 ([id number]) 68684 EST. P ATIENT, LEVEL IV Diagnosis: Essential (primary) hypertension[ICD10: I10] Diagnosis: Localized edema[ICD10: R60.0] Diagnosis: Pain in right hip[ICD10: M25.551] Sarai Almanza MD, [facility] CPT-4: 61669 11/02/2016 ([id number]) 73570 EST. P ATIENT, LEVEL IV Diagnosis: Essential (primary) hypertension[ICD10: I10] Diagnosis: Localized edema[ICD10: R60.0] Sarai Almanza MD, [facility] CPT-4: 49051 09/30/2016 65943 EST. PATIENT, LEVEL IV Diagnosis: Localized edema[ICD10: R60.0] Diagnosis: Pain in joints of left hand[ICD10: M25.542] Diagnosis: Pain in joints of right hand[ICD10: M25.541] Nata Almanza MD, [facility] CPT-4: 77376 09/10/2016 55736 EST. PATIENT, LEVEL IV Diagnosis: Localized edema[ICD10: R60.0] Diagnosis: Pain in joints of left hand[ICD10: M25.542] Diagnosis: Pain in joints of right hand[ICD10: M25.541] Diagnosis: Other fatigue[ICD10: R53.83] Nata Almanza MD, [facility] CPT-4: 56464 08/20/2016 78030 EST. PATIENT, LEVEL IV Diagnosis: Essential (primary) hypertension[ICD10: I10] Diagnosis: Other fci (current) drug therapy[ICD10: Z79.899] Diagnosis: Tinnitus, bilateral[ICD10: H93.13] Nata Almanza MD, [facility] CPT-4: 08099 06/08/2016 [id number] EST. PATIENT, LEVEL IV Diagnosis: Other allergic rhinitis[ICD10: J30.89] Diagnosis: Acute laryngopharyngitis[ICD10: J06.0] Nata Almanza MD, [facility] CPT-4: 17705 04/02/2016 22289 EST. PATIENT, LEVEL IV Diagnosis: Left upper quadrant pain[ICD10: R10.12] Nata Almanza MD, [facility] CPT-4: 57851 01/14/2016 95059 EST. PATIENT, LEVEL IV Diagnosis: Pain in left shoulder[ICD10: M25.512] Diagnosis: Body mass index (BMI) 40.0-44.9, adult[ICD10: Z68.41] Nata Almanza MD, [facility] CPT-4: 73390 10/02/2015 49787 EST. 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] Edna Almanza MD, [facility] CPT-4: 03897 06/10/2015 ([id number]) OFFICE VISI T, NEW - LEVEL 4 Diagnosis: ESSENTIAL HYPERTENSION[ICD9: 401.9] Diagnosis: HYPOTHYROIDISM[ICD9: 244.9] Diagnosis: ENCNTR LONG-RX USE NEC[ICD9: V58.69] Diagnosis: HYPERLIPIDEMIA[ICD9: 272.4] Diagnosis: Vitamin B12 deficiency[ICD9: 266.2] Diagnosis: Status post gastric surgery[ICD9: V45.89] Diagnosis: Snoring[ICD9: 786.09] [facility] CPT-4: 13201 01/22/2015 Plan of Care Planned Activity Notes [...] Hgb A1C 04/14/2018 Appointment: Edna Douglas WPtel: [address] [place] [phone] (15 min) Moderate 04/14/2018 Patient Education: Patient [...] to further attempt to reduce peripheral edema. AUUT-qvhpcivt-qoaxyolu prilosec BID and carafate QID -discussed low spice, low acidic diet 01/18/2018 Appointment: Edna Douglas WPtel: [address] [place] [phone] (15 min) Moderate 01/18/2018 Patient Education: Patient [...] of control. 01/04/2018 Appointment: Edna Douglas WPtel: [address] [place], [place] [phone] (30 min) [facility] 01/04/2018 Patient Education: Patient Medication Summary Completed 01/04/2018 Care Plan: SCREENINGMAMMOGRAPHYDIGITAL LOINC : 23589-3 Pending 01/04/2018 Visit Plan: Abdominal hernia - [...] at home. 09/23/2017 App[facility]ment[facility] [phone] [facility] (15 min) Moderate 09/23/2017 Patient [...] to medications. 05/27/2017 App[facility]ment[phone] (30 min) Complex 05/27/2017 Patient Education: [...] [place]. 02/24/2017 Appointment: Nata Hsu WPtel: [phone] [facility] (30 min) Complex 02/24/2017 Patient Education: Patient [...] [place]. 11/02/2016 App[facility]ment: [facility] [phone] [facility] [place] (15 min) Moderate 11/02/2016 Patient [...] edema. 09/30/2016 Appointment: Sarai Almanza WPtel: [phone] [facility] (15 min) Moderate 09/30/2016 Patient Education: [...] peripheral edema. 09/10/2016 Appointment: Nata Hsu WPtel: [facility] (30 min) Complex 09/10/2016 Patient Education: [...] peripheral edema. 08/20/2016 Appointment: Nata Hsu WPtel: [facility] (30 min) Complex 08/20/2016 Patient Education: Patient Medication Summary Completed 08/20/2016 Referral: Otf Lee [id number] Referral Initiated 07/02/2016 Visit Plan: Chronic Anticoagulant [...] 06/08/2016 Care Plan: Referral Order SNOMED-CT : [id number] Pending 06/08/2016 Visit Plan: URI - Pt [...] spray. 04/02/2016 Appointment: [facility] Hsu [facility] [phone] [facility] [place] (30 min) Complex 04/02/2016 Patient [...] acute pain 01/14/2016 Appointment: Edna Douglas [facility]Ptel[phone] [place] (30 min) Complex 01/14/2016 Patient Education: Patient Medication Summary Completed 01/14/2016 Patient Education: Obesity Completed 01/14/2016 Care Plan: BMI Above normal followup DAVID F-MGMT EDUC & TRAIN 1 PT Pending 10/24/2015 Care Plan: X-RAY EXAM OF SHOULDER LOINC : 01767-3 Pending 10/24/2015 Visit Plan: Left shoulder pain [...] check. 10/02/2015 Appointment: [facility] [phone] [phone] (15 min) Moderate 10/02/2015 Patient Education: [...] 06/11/2015 Visit Plan: Hypertension - well con troignaciaed [...] ses Completed 06/10/2015 Appointment: Sarai Almanza WPtel: [facility] (15 min) Moderate 04/22/2015 Visit Plan: [...] have surgical fixation - planning occurring at [facility]. Snoring - Sleep apnea symptoms with [...] to medications. 01/22/2015 Appointment: Sarai Almanza WPtel: [facility]5 [facility] [place] (S) New Patient 01/22/2015 Patient Education: Patient Medication Summary Completed 01/22/2015 Patient Education: Hypertension Completed 01/22/2015 Referral: Otf Lee [facility] Referral Initiated Instructions Comment dr willis kaplan [...] have surgical fixation - planning occurring at [facility]. Snoring - Sleep apnea symptoms with [...] to further attempt to reduce peripheral edema. TNIK-zehszqvw-qvfdbeke prilosec BID and carafate QID -discussed low [...]
--- OUTSIDE RECORDS SUMMARY | 2020-01-16 23:40 | XMS REPORT | CCD ---
Author Author Kat Almanza Organization Sarai Almanza MD, [facility] Address [address] [place] [address] Phone Care Team Providers Care Make Up Worker Name Role Phone PP Unavailable CCM Unavailable Summary Purpose Interface Exchange Insurance Providers Payer name Policy type / Coverage type Covered libertarian ID Effective Begin Date Effective End Date WPS Medicare Part B Medicare Part B [id number] 2017 Unknown [employer] [place] Medicare Part B [id number] 2017 Unknown Family history Father Diagnosis Age At Onset Hyperlipidemia Unknown Heart Attack Unknown Mother Diagnosis Age At Onset Arthritis Unknown Social History Social History Element Codes Description Effective Dates Marital status Unknown M arried Nathan 09/30/2016 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.] 75 mg capsule,extended release 24 hr RxNorm: 108035 Capsule(s) TAKE 1 CAPSULE BY MOUTH ONCE DAILY 06/23/2018 06/17/2019 Active Generic For:*EFFEXOR XR 75MG 06/19/2017 12:23:45 PM sodium bicarbonate 6 50 mg tablet RxNorm: 158114 Tablet(s) TAKE 2 TABL ETS BY MOUTH TWICE DAILY 06/23/2018 12/19/2018 Active 12/20/2017 9:10:59 AM Coumadin 1 mg tablet RxNorm: 834241 1 Tablet(s) PO daily 06/17/2018 07/16/2018 Active Coumadin 1 mg tablet RxNorm: 934577 1 Tablet(s) PO daily 06/17/2018 06/16/2018 Inactive clonazepam 0.5 mg ta blet RxNorm: 772733 1 Tablet(s) PO BID 06/08/2018 11/04/2018 Active Carafate 1 gram tablet RxNorm: 313369 TAKE ONE TABLET BY MOUTH BEFORE MEALS AN D AT BEDTIME 05/18/2018 07/12/2018 Active Generic For:CARAFATE 1GM 8:38:28 AM Synthroid 137 mcg ta blet RxNorm: 644457 TAKE 1 TABLET BY MOUT H ONCE DAILY 05/18/2018 11/13/2018 Ac tive Generic For:SYNTHROID 137MCG TAB 2017 8:57:54 AM spironolactone 25 mg tablet RxNorm: 376121 TAKE 1 TABLET BY MOUT H EVERY DAY 05/18/2018 05/12/2019 Ac tive Generic For:*ALDACTONE 25MG 05/18/2018 8:57:50 AM allopurinol 300 mg t ablet RxNorm: 926914 TAKE 1 TABLET BY MOUT H ONCE DAILY. 04/18/2018 10/14/2018 Ac tive Generic For:ZYLOPRIM 300 MG TABLET 03/22 9:13:47 AM Lasix 20 mg tablet RxNorm: 161520 TAKE ONE TABLET BY MOUTH DAILY 04/18/2018 08/15/2018 Ac tive Generic For:LASIX 20MG 04/18/2018 9:13: 50 AM Carafate 1 gram tablet RxNorm: 627580 TAKE ONE TABLET BY MOUTH BEFORE MEALS AN D AT BEDTIME 04/18/2018 05/17/2018 Inactive Generic For:CARAFATE 1GM 1 9:32:51 AM Coumadin 5 mg tablet RxNorm: 473897 TAKE 1 TABLET BY MOUTH DIRECTED 03/21/2018 09/16/2018 Ac tive Generic For:COUMADIN 5MG TAB 03/21/2018 9:13:00 AM Carafate 1 gram tablet RxNorm: 453818 TAKE ONE TABLET BY MOUTH BEFORE MEALS AN D AT BEDTIME 03/21/2018 04/17/2018 Inactive Generic For:CARAFATE 1GM 1 9:14:24 AM Carafate 1 gram tablet RxNorm: 755138 1 Tablet(s) PO AC & HS 02/17/2018 03/20/2018 Inactive atenolol 100 mg tablet RxNorm: 527802 1 Tablet(s) PO daily 02/04/2018 09/01/2018 Active atenolol 50 mg tablet RxNorm: 973871 1 Tablet(s) PO daily 02/03/2018 02/03/2018 Inactive omeprazole 20 mg cap sean,delayed release RxNorm: 342417 1 Capsule(s) BID 01/21/2018 01/15/2019 Ac tive Generic For:PRILOSEC 20MG 07/22/2017 8:5 8:20 AM Carafate 1 gram tablet RxNorm: 434150 1 Tablet(s) PO AC & HS 01/21/2018 02/16/2018 Inactive Carafate 1 gram tablet RxNorm: 146769 1 Tablet(s) PO AC & HS 01/18/2018 01/20/2018 Inactive Carafate 1 gram tablet RxNorm: 115116 1 Tablet(s) PO AC & HS 01/18/2018 02/27/2018 Inactive Carafate 1 gram tablet RxNorm: 452649 1 Tablet(s) PO AC & HS TAKE ONE TABLET B Y MOUTH TWICE DAILY 01/18/2018 05/17/2018 Inactive Generic For:CARAFATE 1GM 0 12/20/2017 9:10:56 AM omeprazole 20 mg cap sean,delayed release RxNorm: 920911 Capsule(s) TAKE 1 CAP SEAN BY MOUTH EVERY DAY 01/17/2018 01/20/2018 Inactive Generic For:PRILOSEC 20MG 0 07/22/2017 8:58:20 AM omeprazole 20 mg cap sean,delayed release RxNorm: 938990 Capsule(s) TAKE 1 CAP SEAN BY MOUTH EVERY DAY 01/14/2018 01/16/2018 Inactive Generic For:PRILOSEC 20MG 07/22/2017 8:58:20 AM Plavix 75 mg tablet RxNorm: 037746 1 Tablet(s) PO daily 01/07/2018 07/05/2018 Active clonazepam 0.5 mg ta blet RxNorm: 380500 1 Tablet(s) PO BID 01/07/2018 06/05/2018 Inactive Carafate 1 gram tablet RxNorm: 855420 1 Tablet(s) PO AC & HS 01/04/2018 01/17/2018 Inactive Lasix 20 mg tablet RxNorm: 235198 TAKE ONE TABLET BY MOUTH DAILY 12/20/2017 04/17/2018 In active Generic For:LASIX 20MG 12/20/2017 9:11: 03 AM sodium bicarbonate 6 50 mg tablet RxNorm: 034864 TAKE 2 TABLETS BY JAVON TH TWICE DAILY 12/20/2017 06/17/2018 In active 12/20/2017 9:10:59 AM Carafate 1 gram tablet RxNorm: 017232 TAKE ONE TABLET BY MOUTH TWICE DAILY 12/20/2017 01/17/2018 In active Generic For:CARAFATE 1GM 12/20/2017 9:1 0:56 AM Synthroid 137 mcg ta blet RxNorm: 263883 TAKE 1 TABLET BY MOUT H ONCE DAILY 11/19/2017 05/17/2018 In active Generic For:SYNTHROID 137MCG TAB 2017 8:58:04 AM Detrol LA 4 mg capsu le,extended release RxNorm: 772124 TAKE 1 CAPSULE BY JAVON TH ONCE DAILY 10/20/2017 04/13/2018 Inactive Generic For:DETROL LA 4MG C AP 10/20/2017 9:01:56 AM allopurinol 300 mg t ablet RxNorm: 857296 TAKE 1 TABLET BY MOUT H ONCE DAILY. 10/20/2017 04/17/2018 In active Generic For:ZYLOPRIM 300 MG TABLET 07/2017 9:01:59 AM Coumadin 5 mg tablet RxNorm: 837163 1 Tablet(s) PO UD 10/01/2017 03/20/2018 Inactive cyclobenzaprine 5 mg tablet RxNorm: 259839 1 Tablet(s) PO TID as needed myscle spasm 09/23/2017 10/12/2017 Inactive Lipitor 40 mg tablet RxNorm: 226929 TAKE 1 TABLET BY MOUTH ONCE DAILY 09/20/2017 09/14/2018 Ac tive Generic For:LIPITOR 40MG 09/20/2017 8:5 6:04 AM atenolol 100 mg tablet RxNorm: 151043 1 Tablet(s) PO daily 08/30/2017 02/03/2018 Inactive atenolol 50 mg tablet RxNorm: 484313 1 Tablet(s) PO daily 08/30/2017 08/30/2017 Inactive Lovenox 30 mg/0.3 mL subcutaneous syringe RxNorm: 940246 0.3 Milliliter(s) SQ Q12H 08/24/2017 09/06/2017 In active Lasix 20 mg tablet RxNorm: 827004 TAKE ONE TABLET BY MOUTH DAILY 08/23/2017 12/19/2017 In active Generic For:LASIX 20MG 08/21/2017 9:04: 27 AM Synthroid 137 mcg ta blet RxNorm: 207136 TAKE 1 TABLET BY MOUT H ONCE DAILY 08/23/2017 11/18/2017 In active Generic For:SYNTHROID 137MCG TAB 2017 9:04:30 AM Lovenox 30 mg/0.3 mL subcutaneous syringe RxNorm: 847850 0.3 Milliliter(s) SQ Q12H 08/10/2017 08/23/2017 In active clonazepam 0.5 mg ta blet RxNorm: 481961 1 Tablet(s) PO BID 08/04/2017 12/30/2017 Inactive Coumadin 4 mg tablet RxNorm: 940590 TAKE 1 TABLET BY MOUTH THREE TIMES PER [place] (WEDNESDAY, WEDNESDAY AND WEDNESDAY) 07/22/2017 02/16/2018 Inactive Generic For:COUMADIN 4MG 07/22/2017 8:58:26 AM Coumadin 4 mg tablet RxNorm: 752431 TAKE 1 TABLET BY MOUTH THREE TIMES PER [place] (WEDNESDAY, WEDNESDAY AND WEDNESDAY) 07/22/2017 02/16/2018 Inactive Generic For:COUMADIN 4MG 07/22/2017 8:58:26 AM omeprazole 20 mg cap sean,delayed release RxNorm: 700587 TAKE 1 CAPSULE BY JAVON TH EVERY DAY 07/22/2017 01/13/2018 Inactive Generic For:PRILOSEC 20MG 07/22/2017 8: 58:20 AM sodium bicarbonate 6 50 mg tablet RxNorm: 749349 TAKE 2 TABLETS BY JAVON TH TWICE DAILY 06/22/2017 12/18/2017 In active 06/19/2017 12:23:30 PM venlafaxine ER 75 mg capsule,extended release 24 hr RxNorm: 442681 TAKE 1 CAPSULE BY MOUTH ONCE DAILY 06/22/2017 06/16/2018 Inactive Generic For:*EFFEXOR XR 75M G 06/19/2017 12:23:45 PM Coumadin 5 mg tablet RxNorm: 961641 1 Tablet(s) PO UD 06/01/2017 09/30/2017 Inactive Keflex 500 mg capsule RxNorm: 612788 1 Capsule(s) PO TID 05/27/2017 06/02/2017 Inactive Synthroid 137 mcg ta blet RxNorm: 566621 TAKE 1 TABLET BY MOUT H ONCE DAILY 05/24/2017 08/21/2017 In active Generic For:SYNTHROID 137MCG TAB 2016 8:55:59 AM Carafate 1 gram tablet RxNorm: 746059 TAKE ONE TABLET BY MOUTH TWICE DAILY 05/24/2017 12/19/2017 In active Generic For:CARAFATE 1GM 05/24/2017 8:5 5:54 AM spironolactone 25 mg tablet RxNorm: 959124 1 Tablet(s) PO daily 05/24/2017 05/17/2018 Inactive Detrol LA 4 mg capsu le,extended release RxNorm: 476352 1 Capsule(s) PO daily TAKE 1 CAPSULE BY MOUTH ONCE DAILY 05/10/2017 10/19/2017 Inactive Generic For:DETROL LA 4MG CAP 02/19/2017 2:36:00 PM Lasix 20 mg tablet RxNorm: 534237 TAKE ONE TABLET BY MOUTH DAILY 04/23/2017 08/20/2017 In active Generic For:LASIX 20MG 04/23/2017 9:04: 01 AM Coumadin 4 mg tablet RxNorm: 109657 TAKE 1 TABLET BY MOUTH THREE TIMES PER [place] (WEDNESDAY, WEDNESDAY AND WEDNESDAY) 04/23/2017 07/21/2017 Inactive Generic For:COUMADIN 4MG 04/23/2017 9:04:05 AM allopurinol 300 mg t ablet RxNorm: 911627 TAKE 1 TABLET BY MOUT H ONCE DAILY. 04/23/2017 10/19/2017 In active Generic For:ZYLOPRIM 300 MG TABLET 08/2016 9:03:57 AM potassium chloride 2 0 mEq/15 mL oral liquid RxNorm: 853469 Milliliter(s) 30 Milliliter(s) (40mEq) PO daily 03/24/2017 07/21/2017 Inactive Lovenox 30 mg/0.3 mL subcutaneous syringe RxNorm: 498998 0.3 Milliliter(s) SQ Q12H 03/22/2017 03/26/2017 In active Lovenox 30 mg/0.3 mL subcutaneous syringe RxNorm: 897713 0.3 Milliliter(s) SQ Q12H 03/19/2017 03/20/2017 In active Lovenox 30 mg/0.3 mL subcutaneous syringe RxNorm: 513604 0.3 Milliliter(s) SQ Q12H 03/16/2017 03/18/2017 In active clonazepam 0.5 mg ta blet RxNorm: 019063 1 Tablet(s) PO BID 03/02/2017 07/28/2017 Inactive Lovenox 30 mg/0.3 mL subcutaneous syringe RxNorm: 138339 1 injection SQ BID do NOT take the night time dose the day before surgery, or the morning dose the day of surgery 03/01/2017 03/07/2017 Inactive Lovenox 30 mg/0.3 mL subcutaneous syringe RxNorm: 166856 1 injection SQ BID 03/01/2017 02/28/2017 In active Detrol LA 4 mg capsu le,extended release RxNorm: 687026 TAKE 1 CAPSULE BY JAVON TH ONCE DAILY 02/19/2017 05/09/2017 Inactive Generic For:DETROL LA 4MG C AP 02/19/2017 2:36:00 PM hydrocodone 5 mg-humberto taminophen 325 mg tablet RxNorm: 348933 1-2 Tablet(s) PO Q6 P RN 02/04/2017 No Stop Date Active Zetia 10 mg tablet RxNorm: 673116 TAKE 1 TABLET BY MOUTH DAILY 01/25/2017 04/13/2018 Inactive 01/23/2017 9:03:48 AM omeprazole 20 mg cap sean,delayed release RxNorm: 254741 TAKE 1 CAPSULE BY JAVON TH EVERY DAY 01/25/2017 07/21/2017 Inactive Generic For:PRILOSEC 20MG 01/23/2017 9: 03:45 AM Coumadin 4 mg tablet RxNorm: 322677 TAKE 1 TABLET BY MOUTH THREE TIMES PER [place] (WEDNESDAY, WEDNESDAY AND WEDNESDAY) 01/25/2017 04/22/2017 Inactive Generic For:COUMADIN 4MG 01/23/2017 9:03:51 AM sodium bicarbonate 6 50 mg tablet RxNorm: 773755 TAKE 2 TABLETS BY JAVON TH TWICE DAILY 12/24/2016 06/21/2017 In active 12/24/2016 9:09:27 AM Lasix 20 mg tablet RxNorm: 236093 1 Tablet(s) PO daily 12/24/2016 04/22/2017 Inactive Synthroid 137 mcg ta blet RxNorm: 292627 TAKE 1 TABLET BY MOUT H ONCE DAILY 11/24/2016 05/22/2017 In active Generic For:SYNTHROID 137MCG TAB 2016 9:04:37 AM Coumadin 4 mg tablet RxNorm: 862261 TAKE 1 TABLET BY MOUTH THREE TIMES PER [place] (WEDNESDAY, WEDNESDAY AND WEDNESDAY) 11/24/2016 01/22/2017 Inactive Generic For:COUMADIN 4MG 11/24/2016 9:04:41 AM hydrocodone 5 mg-humberto taminophen 325 mg tablet RxNorm: 959809 1-2 Tablet(s) PO Q6 P RN 11/17/2016 02/03/2017 In active Carafate 1 gram tablet RxNorm: 562958 TAKE ONE TABLET BY MOUTH TWICE DAILY 10/27/2016 05/23/2017 In active Generic For:CARAFATE 1GM 10/26/2016 8:3 9:42 AM allopurinol 300 mg t ablet RxNorm: 473878 Tablet(s) TAKE 1 TABL ET BY MOUTH ONCE DAILY. 10/26/2016 04/22/2017 Inactive Lipitor 40 mg tablet RxNorm: 088651 1 Tablet(s) PO daily 09/25/2016 09/19/2017 Inactive Coumadin 4 mg tablet RxNorm: 338568 TAKE 1 TABLET BY MOUTH THREE TIMES PER [place] (WEDNESDAY, WEDNESDAY AND WEDNESDAY) 09/25/2016 11/23/2016 Inactive Generic For:COUMADIN 4MG 09/25/2016 8:55:58 AM Zetia 10 mg tablet RxNorm: 550986 1 Tablet(s) PO daily 09/25/2016 01/22/2017 Inactive gave 1 month of samples clonazepam 0.5 mg ta blet RxNorm: 735841 1 Tablet(s) PO BID 09/21/2016 02/16/2017 Inactive Lasix 20 mg tablet RxNorm: 939329 1 Tablet(s) PO daily 09/15/2016 12/23/2016 Inactive potassium chloride 2 0 mEq/15 mL oral liquid RxNorm: 347685 Milliliter(s) 30 Milliliter(s) (40mEq) PO daily 09/15/2016 01/12/2017 Inactive Lasix 20 mg tablet RxNorm: 203440 2 Tablet(s) PO daily 09/10/2016 09/12/2016 Inactive Lasix 20 mg tablet RxNorm: 561796 1 Tablet(s) PO daily 08/28/2016 08/30/2016 Inactive Lasix 20 mg tablet RxNorm: 448687 1 Tablet(s) PO daily 08/20/2016 08/22/2016 Inactive Detrol LA 4 mg capsu le,extended release RxNorm: 646385 TAKE 1 CAPSULE BY JAVON TH ONCE DAILY 07/27/2016 02/18/2017 Inactive Generic For:DETROL LA 4MG C AP 07/27/2016 9:08:27 AM Coumadin 4 mg tablet RxNorm: 788483 1 Tablet(s) PO 3 x week tue thur and sun 07/27/2016 09/24/2016 In active omeprazole 20 mg cap sean,delayed release RxNorm: 814791 Capsule(s) PO TAKE 1 CAPSULE BY MOUTH ONCE DAILY 07/27/2016 01/22/2017 Inactive venlafaxine ER 75 mg capsule,extended release 24 hr RxNorm: 345591 1 Capsule(s) PO daily 06/29/2016 06/21/2017 Inactive sodium bicarbonate 6 50 mg tablet RxNorm: 913002 TAKE 2 TABLETS BY JAVON TWICE DAILY 06/29/2016 12/23/2016 In active 06/27/2016 9:05:39 AM Coumadin 4 mg tablet RxNorm: 901492 1 Tablet(s) PO 3 x week tue thur and sun 06/09/2016 06/08/2016 In active Coumadin 4 mg tablet RxNorm: 578099 1 Tablet(s) PO 3 x week tue thur and sun 06/09/2016 07/26/2016 In active Zetia 10 mg tablet RxNorm: 429129 1 Tablet(s) PO daily 06/09/2016 06/08/2016 Inactive gave 1 month of samples Zetia 10 mg tablet RxNorm: 590381 1 Tablet(s) PO daily 06/09/2016 09/24/2016 Inactive gave 1 month of samples Effexor 75 mg tablet RxNorm: 384575 1 Tablet(s) PO daily 06/08/2016 06/28/2016 Inactive spironolactone 25 mg tablet RxNorm: 443913 1 Tablet(s) PO daily 06/08/2016 05/23/2017 Inactive Synthroid 137 mcg ta blet RxNorm: 442607 1 Tablet(s) PO daily 05/07/2016 11/02/2016 Inactive allopurinol 300 mg t ablet RxNorm: 243401 Tablet(s) TAKE 1 TABL ET BY MOUTH ONCE DAILY. 04/28/2016 10/24/2016 Inactive clonazepam 0.5 mg ta blet RxNorm: 203997 1 Tablet(s) PO BID 04/20/2016 09/15/2016 Inactive Flonase Allergy Reli ef 50 mcg/actuation nasal spray,suspension RxNorm: 7078284 1 [place] NASAL BID 04/02/2016 No Stop Date Active Zithromax Z-Thomas 250 mg tablet RxNorm: 523495 Tablet(s) PO 04/02/2016 08/27/2016 Inactive cetirizine 10 mg tablet RxNorm: 8406733 1 Tablet(s) PO daily 04/02/2016 05/01/2016 Inactive Carafate 1 gram tablet RxNorm: 082754 Tablet(s) TAKE 1 TABLET TWICE A DAY FOR 30 DAYS 03/30/2016 10/25/2016 Inactive Generic For:CARAFATE 1GM 02/08/2015 12:3 6:39 PM Plavix 75 mg tablet RxNorm: 601318 1 Tablet(s) PO daily 03/11/2016 09/06/2016 Inactive sodium bicarbonate 6 50 mg tablet RxNorm: 944498 Tablet(s) 2 Tablet(s) PO BID 02/28/2016 06/26/2016 In active omeprazole 20 mg cap sean,delayed release RxNorm: 980686 Capsule(s) PO TAKE 1 CAPSULE BY MOUTH ONCE DAILY 01/31/2016 07/26/2016 Inactive Fish Oil 1,000 mg ca psule RxNorm: 1 Capsule(s) PO BID 01/14/2016 No Stop Date Active Synthroid 137 mcg ta blet RxNorm: 331003 1 Tablet(s) PO daily 01/14/2016 05/06/2016 Inactive Detrol LA 4 mg capsu le,extended release RxNorm: 415867 TAKE 1 CAPSULE BY JAVON TH ONCE DAILY 12/30/2015 07/26/2016 Inactive Generic For:DETROL LA 4MG C AP 12/30/2015 9:11:01 AM potassium chloride 2 0 mEq/15 mL oral liquid RxNorm: 633391 Milliliter(s) 30 Milliliter(s) (40mEq) PO daily 12/02/2015 03/30/2016 Inactive sodium bicarbonate 6 50 mg tablet RxNorm: 911492 Tablet(s) 2 Tablet(s) PO BID 10/31/2015 02/27/2016 In active Lipitor 40 mg tablet RxNorm: 186972 1 Tablet(s) PO daily 10/09/2015 09/24/2016 Inactive sodium bicarbonate 6 50 mg tablet RxNorm: 808157 2 Tablet(s) PO BID 10/01/2015 10/30/2015 Inactive allopurinol 300 mg t ablet RxNorm: 491631 TAKE 1 TABLET BY MOUT H ONCE DAILY. 10/01/2015 04/27/2016 In active Generic For:ZYLOPRIM 300 MG TABLET 09/19 9:21:15 AM clonazepam 0.5 mg ta blet RxNorm: 331765 1 Tablet(s) PO BID 09/30/2015 04/19/2016 Inactive Coumadin 5 mg tablet RxNorm: 187153 1 Tablet(s) PO daily 09/27/2015 05/31/2017 Inactive Generic For:COUMADIN 5MG TAB N O T I C E PRESCRIPTION PREVIOUSLY AUTHORIZED BY DOCTOR:BOBBY ZULETA Synthroid 125 mcg ta blet RxNorm: 964500 1 Tablet(s) PO daily 09/27/2015 09/26/2015 Inactive Synthroid 125 mcg ta blet RxNorm: 348307 1 Tablet(s) PO daily 09/27/2015 01/13/2016 Inactive Carafate 1 gram tablet RxNorm: 216606 Tablet(s) TAKE 1 TABLET TWICE A DAY FOR 30 DAYS 09/02/2015 03/29/2016 Inactive Generic For:CARAFATE 1GM 02/08/2015 12:3 6:39 PM sodium bicarbonate 6 50 mg tablet RxNorm: 820699 2 Tablet(s) PO BID 09/02/2015 09/30/2015 Inactive Prilosec 20 mg capsu le,delayed release RxNorm: 105227 TAKE 1 CAPSULE BY JAVON TH ONCE DAILY 08/02/2015 01/28/2016 Inactive Generic For:PRILOSEC 20MG 08/02/2015 10:03:09 AM N O T I C E PRESCRIPTION PREVIOUSLY AUTHORIZED BY DOCTOR:BOBBY ZULETA Zyrtec 10 mg capsule RxNorm: 1291680 1 Capsule(s) PO daily 07/15/2015 08/13/2015 Inactive Keflex 500 mg capsule RxNorm: 541215 1 Capsule(s) PO TID 07/15/2015 07/21/2015 Inactive cetirizine 10 mg cap sean RxNorm: 1318511 1 Capsule(s) PO daily 07/15/2015 08/13/2015 Inactive hydrocodone 5 mg-humberto taminophen 325 mg tablet RxNorm: 809976 1-2 Tablet(s) PO Q6 P RN 06/10/2015 11/16/2016 In active sodium bicarbonate 6 50 mg tablet RxNorm: 342991 2 Tablet(s) PO BID 06/03/2015 08/31/2015 Inactive Detrol LA 4 mg capsu le,extended release RxNorm: 232410 TAKE 1 CAPSULE BY JAVON TH ONCE DAILY 06/03/2015 12/29/2015 Inactive Generic For:DETROL LA 4MG C AP N O T I C E PRESCRIPTION PREVIOUSLY AUTHORIZED BY DOCTOR:BOBBY ZULETA atenolol 50 mg tablet RxNorm: 227852 1 Tablet(s) PO daily TAKE 1 TABLET BY MO UTH DAILY 05/07/2015 08/23/2017 Inactive Generic For:TENORMIN 50MG 05/04/2015 9:07:22 AM spironolactone 25 mg tablet RxNorm: 957061 1 Tablet(s) PO daily 05/06/2015 06/07/2016 Inactive venlafaxine ER 75 mg capsule,extended release 24 hr RxNorm: 553163 1 Capsule(s) PO daily 05/04/2015 06/28/2016 Inactive atenolol 50 mg tablet RxNorm: 455205 TAKE 1 TABLET BY MOUTH DAILY 05/04/2015 05/06/2015 Inactive Generic For:TENORMIN 50MG 05/04/2015 9: 07:22 AM Synthroid 150 mcg ta blet RxNorm: 818501 TAKE 1 TABLET BY MOUT H ONCE DAILY. 04/05/2015 09/26/2015 In active Generic For:SYNTHROID 150MCG TAB 2014 4:45:40 PM N O T I C E PRESCRIPTION PREVIOUSLY AUTHORIZED BY DOCTOR:BOBBY ZULETA Effexor 75 mg tablet RxNorm: 925361 1 Tablet(s) PO daily 04/05/2015 07/03/2015 Inactive Coumadin 5 mg tablet RxNorm: 216496 TAKE 1 AND 1/2 TABLETS BY MOUTH ONCE MYRANDA LY 04/04/2015 09/26/2015 In active Generic For:COUMADIN 5MG TAB N O T I C E PRESCRIPTION PREVIOUSLY AUTHORIZED BY DOCTOR:BOBBY ZULETA clonazepam 0.5 mg ta blet RxNorm: 888435 1 Tablet(s) PO BID 03/13/2015 11/05/2015 Inactive sodium bicarbonate 6 50 mg tablet RxNorm: 605381 2 Tablet(s) PO BID 03/08/2015 06/02/2015 Inactive allopurinol 300 mg t ablet RxNorm: 084776 TAKE 1 TABLET BY MOUT H ONCE DAILY. 03/05/2015 09/30/2015 In active N O T I C E PRESCRIPTION PREVIOUSLY A UTHORIZED BY DOCTOR:BOBBY ZULETA Plavix 75 mg tablet RxNorm: 655587 1 Tablet(s) PO daily 02/12/2015 09/09/2015 Inactive clonazepam 0.5 mg ta blet RxNorm: 099257 1 Tablet(s) PO BID 02/11/2015 03/11/2015 Inactive Carafate 1 gram tablet RxNorm: 536661 TAKE 1 TABLET TWICE A DAY FOR 30 DAYS 02/08/2015 02/07/2015 In active Generic For:CARAFATE 1GM 02/08/2015 12:3 6:39 PM Carafate 1 gram tablet RxNorm: 242984 Tablet(s) TAKE 1 TABLET TWICE A DAY FOR 30 DAYS 02/08/2015 09/01/2015 Inactive Generic For:CARAFATE 1GM 02/08/2015 12:3 6:39 PM potassium chloride 2 0 mEq/15 mL oral liquid RxNorm: 417202 30 Milliliter(s) (40m Eq) PO daily 02/05/2015 12/01/2015 Inactive atenolol 50 mg tablet RxNorm: 218371 1 Tablet(s) PO daily 02/04/2015 05/03/2015 Inactive [SAVINGS FOR NON-COVERED DRUGS -- BIN: 947, PCN: ASPROD1, Group: XXXXX, ID# XXXXXXX, Questions: . THIS IS NOT INSURANCE.] potassium chloride 2 0 mEq/15 mL oral liquid RxNorm: 886161 30 Milliliter(s) (40m Eq) PO daily 01/08/2015 02/04/2015 Inactive potassium chloride 2 0 mEq/15 mL oral liquid RxNorm: 471361 30 Milliliter(s) (40m Eq) PO daily 12/07/2014 01/07/2015 Inactive atenolol 50 mg tablet RxNorm: 029738 1 Tablet(s) PO daily 11/09/2014 11/08/2014 Inactive atenolol 50 mg tablet RxNorm: 280966 1 Tablet(s) PO daily 11/09/2014 02/03/2015 Inactive [SAVINGS FOR NON-COVERED DRUGS -- BIN: 946, PCN: ASPROD1, Group: XXXXX, ID# XXXXXXX, Questions: . THIS IS NOT INSURANCE.] Voltaren 1 % topical gel RxNorm: 750670 TOP No St art Date Active verapamil ER (HS) 24 0 mg tablet,extended release 24 hr RxNorm: 346563 1 Tablet(s) PO daily No Start Date Active aspirin 81 mg tablet RxNorm: 217382 1 Tablet(s) PO daily No Start Date Active Zofran 4 mg tablet RxNorm: 926884 1 Tablet(s) PO PRN No Start Date Active B12 1000 mcg RxNorm: 1 Tablet(s) PO daily No Start Date Active magnesium oxide 400 mg capsule RxNorm: 389711 2 Capsule(s) PO BID No Start Date Active Synthroid 150 mcg ta blet RxNorm: 949897 1 Tablet(s) PO daily No Start Date 04/04/2015 Inactive Coumadin 5 mg tablet RxNorm: 250245 1 Tablet(s) PO daily No Start Date 04/03/2015 Inactive cranberry 1,000 mg c apsule RxNorm: 198580 1 Capsule(s) PO daily No Start Date 04/13/2018 Inactive allopurinol 300 mg t ablet RxNorm: 855729 1 Tablet(s) PO daily No Start Date 03/04/2015 Inactive Prilosec 20 mg capsu le,delayed release RxNorm: 667889 1 Capsule(s) PO PRN No Start Date 08/01/2015 Inactive potassium chloride 2 0 mEq/15 mL oral liquid RxNorm: 761526 30 Milliliter(s) (40m Eq) PO daily No Start Date 12/06/2014 Inactive atenolol 50 mg tablet RxNorm: 890501 1 Tablet(s) PO daily No Start Date 08/29/2017 Inactive Lipitor 40 mg tablet RxNorm: 864120 1 Tablet(s) PO daily No Start Date 09/19/2017 Inactive Effexor 75 mg tablet RxNorm: 480668 1 Tablet(s) PO daily No Start Date 04/04/2015 Inactive Carafate 1 gram tablet RxNorm: 311804 1 Tablet(s) PO BID No Start Date 02/07/2015 Inactive clonazepam 0.5 mg ta blet RxNorm: 133653 1 Tablet(s) PO BID No Start Date 02/10/2015 Inactive Plavix 75 mg tablet RxNorm: 631362 1 Tablet(s) PO daily No Start Date 02/11/2015 Inactive sodium bicarbonate 6 50 mg tablet RxNorm: 403382 2 Tablet(s) PO BID No Start Date 09/01/2015 Inactive Lovenox 30 mg/0.3 mL subcutaneous syringe RxNorm: 751123 0.3 Milliliter(s) SQ Q12H No Start Date 03/15/2017 Inactive Fish Oil 1,000 mg ca psule RxNorm: 1 Capsule(s) PO daily No Start Date 01/13/2016 Inactive Detrol LA 4 mg capsu le,extended release RxNorm: 817818 1 Capsule(s) PO daily No Start Date 06/02/2015 Inactive Medication Administered No Medication Administered data Immunizations Vaccine Codes Date Status SHINGARIX CVX: 121 03/23 completed Assessments Condition Codes Effectiv e Dates Hypothyroidism, unspecified ICD-10: E03.9 ICD-9: 244.9 04/14/2018 Essential (primary) hypertension ICD -10: I10 ICD-9: 401.9 04/14/2018 [place] (current) use of anticoagulants ICD-10: Z79.01 ICD-9: [...] fatigue ICD-10: R53.83 ICD-9: 780.79 08/20/2016 Other prison (current) drug therapy ICD-10: Z79.899 ICD-9: V58.69 [...] Code Item Item Code Result Date Pt [id number] PT 19.2 seconds 07/01/2018 Pt [id number] INR 1.7 07/01/2018 Pt [id number] Low Intensity - 1.5-2.0 07/01/2018 Pt Jev1798 Mod intensity - 2.0-3.0 07/01/2018 Pt Xqj7945 Hi intensity - 3.0-4.0 07/01/2018 Pt Uzu9611 PT 17.4 seconds 06/23/2018 Pt Sls6476 INR 1.5 06/23/2018 Pt Pkp7583 Low Intensity - 1.5-2.0 06/23/2018 Pt Wnb2506 Mod intensity - 2.0-3.0 06/23/2018 Pt Bin3947 Hi intensity - 3.0-4.0 06/23/2018 Pt Shw0015 PT 18.4 seconds 06/17/2018 Pt Tvg4525 INR 1.6 06/17/2018 Pt Zmv7829 Low Intensity - 1.5-2.0 06/17/2018 Pt Knc8549 Mod intensity - 2.0-3.0 06/17/2018 Pt Vur0531 Hi intensity - 3.0-4.0 06/17/2018 Sed Rate [...] 30.4 pg 06/08/2018 Cbc With Differential Ord2 [place]% 9.4 % 06/08/2018 Cbc With Differential Ord2 [...] 1.20 K/ul 06/08/2018 Cbc With Differential Ord2 [place] ABS# 0.5 K/ul 06/08/2018 Cbc With Differential Ord2 Eos ABS# 0.1 K/ul 06/08/2018 Cbc With Differential Ord2 Baso ABS# 0.1 K/ul 06/08/2018 C-Reactive Protein Qnt Crqnt CRP 0.1 mg/dl 06/08/2018 Pt Eyu9724 PT 17.6 seconds 06/08/2018 Pt Wip7048 INR 1.5 06/08/2018 Pt Dtq5458 Low Intensity - 1.5-2.0 06/08/2018 Pt Yke5756 Mod intensity - 2.0-3.0 06/08/2018 Pt Wqt0957 Hi intensity - 3.0-4.0 06/08/2018 Pt Qon5589 PT 16.8 seconds 05/10/2018 Pt Siq1548 INR 1.4 05/10/2018 Pt Xcj8639 Low Intensity - 1.5-2.0 05/10/2018 Pt Tfz9714 Mod intensity - 2.0-3.0 05/10/2018 Pt Div4507 Hi intensity - 3.0-4.0 05/10/2018 Pt Spx4090 PT 16.7 seconds 05/04/2018 Pt Wma7522 INR 1.4 05/04/2018 Pt Amp6942 Low Intensity - 1.5-2.0 05/04/2018 Pt Jot4859 Mod intensity - 2.0-3.0 05/04/2018 Pt Len4844 Hi intensity - 3.0-4.0 05/04/2018 Free T4 Cjg725 FREE T4 1.09 ng/dL 04/14/2018 Tsh Ord6 TSH (3rd IS) 2.36 uIU/mL 04/14/2018 Pt Hwc3819 PT 20.3 seconds 04/14/2018 Pt Uqp4781 INR 1.8 04/14/2018 Pt Tja5519 Low Intensity - 1.5-2.0 04/14/2018 Pt Fsn4995 Mod intensity - 2.0-3.0 04/14/2018 Pt Ipa8550 Hi intensity - 3.0-4.0 04/14/2018 Lipid Ord30 CHOL 149 mg/dL 04/14/2018 Lipid Ord30 HDL 49.0 mg/dl 04/14/2018 Lipid Ord30 TRIG 161 mg/dL 04/14/2018 Lipid Ord30 LDL 68 mg/dL 04/14/2018 Lipid Ord30 C/HDL 3.0 Ratio 04/14/2018 %Hba1C Zzp171 % HbA1c 66872-7 5.9 % 04/14/2018 %Hba1C Nzx043 Gluc Ave 123 mg/dL 04/14/2018 Comp Metabolic Kom762 NA 140 mEq/L 04/14/2018 Comp Metabolic Luv727 K 4.1 mEq/L 04/14/2018 Comp Metabolic Bnt563 CL 105 mEq/L 04/14/2018 Comp Metabolic Ksz555 CO2 28.0 mEq/L 04/14/2018 Comp Metabolic Pmk703 AN ION GAP 11 04/14/2018 Comp Metabolic Oeq350 GL UCOSE 112 mg/dL 04/14/2018 Comp Metabolic Mee008 Cr eat 1.0 mg/dL 04/14/2018 Comp Metabolic Tqp885 eG FR 58 ml/min/1.73m2 04/14 Comp Metabolic Ytn124 BUN 20 mg/dL 04/14/2018 Comp Metabolic Mjb091 B/ C Ratio 20.2 Ratio 04/14/2018 Comp Metabolic Xjv393 CA LCIUM 10.0 mg/dL 04/14/2018 Comp Metabolic Obn470 AL K PHOS 51 U/L 04/14/2018 Comp Metabolic Rnh843 T(SGOT) 24 U/L 04/14/2018 Comp Metabolic Zyc790 AL T(SGPT) 21 U/L 04/14/2018 Comp Metabolic Syn912 BI LI T 0.8 mg/dL 04/14/2018 Comp Metabolic Ufn801 AL BUMIN 4.2 g/dL 04/14/2018 Comp Metabolic Iei564 TP RO 7.1 g/dL 04/14/2018 Comp Metabolic Qru791 GL OB 2.9 g/dL 04/14/2018 Comp Metabolic Igv754 A/ G Ratio 1.5 Ratio 04/14/2018 Comp Metabolic Avv902 Os mo 283 mOsmo 04/14/2018 Cbc With [...] 30.7 pg 04/14/2018 Cbc With Differential Ord2 [place]% 10.6 % 04/14/2018 Cbc With Differential Ord2 [...] 1.18 K/ul 04/14/2018 Cbc With Differential Ord2 [place] ABS# 0.5 K/ul 04/14/2018 Cbc With Differential Ord2 Eos ABS# 0.2 K/ul 04/14/2018 Cbc With Differential Ord2 Baso ABS# 0.1 K/ul 04/14/2018 Pt Drr3445 PT 29.3 seconds 02/11/2018 Pt Kei7289 INR 2.8 02/11/2018 Pt Txa2679 Low Intensity - 1.5-2.0 02/11/2018 Pt Cxo2699 Mod intensity - 2.0-3.0 02/11/2018 Pt Rzs6438 Hi intensity - 3.0-4.0 02/11/2018 Comp Metabolic Tvl521 NA 141 mEq/L 01/05/2018 Comp Metabolic Pkk691 K 3.7 mEq/L 01/05/2018 Comp Metabolic Xyg418 CL 102 mEq/L 01/05/2018 Comp Metabolic Kau218 CO2 29.0 mEq/L 01/05/2018 Comp Metabolic Acw396 AN ION GAP 14 01/05/2018 Comp Metabolic Lag897 GL UCOSE 136 mg/dL 01/05/2018 Comp Metabolic Fkf434 Cr eat 1.0 mg/dL 01/05/2018 Comp Metabolic Irz692 eG FR 61 ml/min/1.73m2 01/05 Comp Metabolic Xuk571 BUN 22 mg/dL 01/05/2018 Comp Metabolic Ukh137 B/ C Ratio 22.9 Ratio 01/05/2018 Comp Metabolic Lqf401 CA LCIUM 9.7 mg/dL 01/05/2018 Comp Metabolic Wzs311 AL K PHOS 57 U/L 01/05/2018 Comp Metabolic Qbx455 T(SGOT) 21 U/L 01/05/2018 Comp Metabolic Vbb475 AL T(SGPT) 19 U/L 01/05/2018 Comp Metabolic Dsv639 BI LI T 0.9 mg/dL 01/05/2018 Comp Metabolic Mlp032 AL BUMIN 4.1 g/dL 01/05/2018 Comp Metabolic Fie412 TP RO 7.1 g/dL 01/05/2018 Comp Metabolic Bsl068 GL OB 3.0 g/dL 01/05/2018 Comp Metabolic Xir812 A/ G Ratio 1.4 Ratio 01/05/2018 Comp Metabolic Ihl099 Os mo 287 mOsmo 01/05/2018 Free T4 Rpn924 FREE T4 1.05 ng/dL 01/05/2018 %Hba1C Vcb447 % HbA1c 00196-0 6.0 % 01/05/2018 %Hba1C Byd529 Gluc Ave 126 mg/dL 01/05/2018 Cbc With [...] 27.3 % 01/05/2018 Cbc With Differential Ord2 [place]% 10.5 % 01/05/2018 Cbc With Differential Ord2 [...] 1.27 K/ul 01/05/2018 Cbc With Differential Ord2 [place] ABS# 0.5 K/ul 01/05/2018 Cbc With Differential Ord2 Eos ABS# 0.2 K/ul 01/05/2018 Cbc With Differential Ord2 Baso ABS# 0.1 K/ul 01/05/2018 Pt Qoy6714 PT 20.7 seconds 01/05/2018 Pt Snp3072 INR 1.8 01/05/2018 Pt Jdr9958 Low Intensity - 1.5-2.0 01/05/2018 Pt Ldr5922 Mod intensity - 2.0-3.0 01/05/2018 Pt Pls3916 Hi intensity - 3.0-4.0 01/05/2018 Tsh Ord6 TSH (3rd IS) 2.34 uIU/mL 01/05/2018 Lipid Ord30 CHOL 156 mg/dL 01/05/2018 Lipid Ord30 HDL 48.0 mg/dl 01/05/2018 Lipid Ord30 TRIG 207 mg/dL 01/05/2018 Lipid Ord30 LDL 67 mg/dL 01/05/2018 Lipid Ord30 C/HDL 3.3 Ratio 01/05/2018 Pt Eqj0000 PT 28.3 seconds 11/26/2017 Pt Dlp2320 INR 2.6 11/26/2017 Pt Gjd3622 Low Intensity - 1.5-2.0 11/26/2017 Pt Ctn4341 Mod intensity - 2.0-3.0 11/26/2017 Pt Rjh3749 Hi intensity - 3.0-4.0 11/26/2017 Pt Yph0305 PT 36.5 seconds 11/19/2017 Pt Jpx5993 INR 3.6 11/19/2017 Pt Zeo1873 Low Intensity - 1.5-2.0 11/19/2017 Pt Wum7649 Mod intensity - 2.0-3.0 11/19/2017 Pt Bci3892 Hi intensity - 3.0-4.0 11/19/2017 Pt Kgv2107 PT 22.9 seconds 10/15/2017 Pt Rst4910 INR 2.0 10/15/2017 Pt Doi9612 Low Intensity - 1.5-2.0 10/15/2017 Pt Ddf1539 Mod intensity - 2.0-3.0 10/15/2017 Pt Ynb1659 Hi intensity - 3.0-4.0 10/15/2017 Pt Zsm5868 PT 25.9 seconds 10/01/2017 Pt Nxm4259 INR 2.4 10/01/2017 Pt Vfn1701 Low Intensity - 1.5-2.0 10/01/2017 Pt Jzr4166 Mod intensity - 2.0-3.0 10/01/2017 Pt Krs1321 Hi intensity - 3.0-4.0 10/01/2017 Pt Qiw0730 PT 20.6 seconds 09/24/2017 Pt Dpy2555 INR 1.8 09/24/2017 Pt Xch2303 Low Intensity - 1.5-2.0 09/24/2017 Pt Bkn8096 Mod intensity - 2.0-3.0 09/24/2017 Pt Gdz6198 Hi intensity - 3.0-4.0 09/24/2017 Pt Vpk0849 PT 21.0 seconds 09/15/2017 Pt Csy1300 INR 1.8 09/15/2017 Pt Jju6222 Low Intensity - 1.5-2.0 09/15/2017 Pt Kax4528 Mod intensity - 2.0-3.0 09/15/2017 Pt Zln1367 Hi intensity - 3.0-4.0 09/15/2017 Pt Csp2043 PT 19.0 seconds 09/03/2017 Pt Znb2677 INR 1.6 09/03/2017 Pt Qzv6248 Low Intensity - 1.5-2.0 09/03/2017 Pt Tlv6779 Mod intensity - 2.0-3.0 09/03/2017 Pt Pda3721 Hi intensity - 3.0-4.0 09/03/2017 Pt Rjh1992 PT 17.6 seconds 08/23/2017 Pt Bcg6981 INR 1.5 08/23/2017 Pt Xua4715 Low Intensity - 1.5-2.0 08/23/2017 Pt Gkv4766 Mod intensity - 2.0-3.0 08/23/2017 Pt Aaj7600 Hi intensity - 3.0-4.0 08/23/2017 Pt Cny9600 PT 12.7 seconds 08/20/2017 Pt Hwx0604 INR 1.0 08/20/2017 Pt Krn2936 Low Intensity - 1.5-2.0 08/20/2017 Pt Qhk6607 Mod intensity - 2.0-3.0 08/20/2017 Pt Seb4993 Hi intensity - 3.0-4.0 08/20/2017 Pt Mok0997 PT 12.9 seconds 08/17/2017 Pt Bee5848 INR 1.0 08/17/2017 Pt Xrw5401 Low Intensity - 1.5-2.0 08/17/2017 Pt Apn7938 Mod intensity - 2.0-3.0 08/17/2017 Pt Jfr4004 Hi intensity - 3.0-4.0 08/17/2017 Pt Hwk3474 PT 18.5 seconds 08/10/2017 Pt Bcj3593 INR 1.6 08/10/2017 Pt Uai8877 Low Intensity - 1.5-2.0 08/10/2017 Pt Vow5716 Mod intensity - 2.0-3.0 08/10/2017 Pt Mln6493 Hi intensity - 3.0-4.0 08/10/2017 Tsh Ord6 [...] 14.7 % 05/27/2017 Cbc With Differential Ord2 [place]% 8.1 % 05/27/2017 Cbc With Differential Ord2 [...] 1.11 K/ul 05/27/2017 Cbc With Differential Ord2 [place] ABS# 0.6 K/ul 05/27/2017 Cbc With Differential Ord2 Eos ABS# 0.2 K/ul 05/27/2017 Cbc With Differential Ord2 Baso ABS# 0.1 K/ul 05/27/2017 Pt Xpn0075 PT 28.2 seconds 05/27/2017 Pt Ayp2443 INR 2.6 05/27/2017 Pt Wcg0850 Low Intensity - 1.5-2.0 05/27/2017 Pt Ahq8774 Mod intensity - 2.0-3.0 05/27/2017 Pt Rnk4245 Hi intensity - 3.0-4.0 05/27/2017 Lipid Ord30 CHOL 167 mg/dL 05/27/2017 Lipid Ord30 HDL 49.0 mg/dl 05/27/2017 Lipid Ord30 TRIG 347 mg/dL 05/27/2017 Lipid Ord30 LDL 49 mg/dL 05/27/2017 Lipid Ord30 C/HDL 3.4 Ratio 05/27/2017 Magnesium Ord90 Mag 1.4 mg/dL 05/27/2017 %Hba1C Ivf498 % HbA1c 29931-4 5.9 % 05/27/2017 %Hba1C Fcs340 Gluc Ave 123 mg/dL 05/27/2017 Comp Metabolic Mzh616 NA 138 mEq/L 05/27/2017 Comp Metabolic Ssl672 K 4.1 mEq/L 05/27/2017 Comp Metabolic Pcq308 CL 101 mEq/L 05/27/2017 Comp Metabolic Cfo912 CO2 31.0 mEq/L 05/27/2017 Comp Metabolic Gqv771 AN ION GAP 10 05/27/2017 Comp Metabolic Rsa466 GL UCOSE 117 mg/dL 05/27/2017 Comp Metabolic Izr157 Cr eat 0.9 mg/dL 05/27/2017 Comp Metabolic Bpu958 eG FR 62 ml/min/1.73m2 05/27 Comp Metabolic Git562 BUN 25 mg/dL 05/27/2017 Comp Metabolic Plx405 B/ C Ratio 26.6 Ratio 05/27/2017 Comp Metabolic Emu350 CA LCIUM 9.5 mg/dL 05/27/2017 Comp Metabolic Buf394 AL K PHOS 73 U/L 05/27/2017 Comp Metabolic Rtb532 T(SGOT) 18 U/L 05/27/2017 Comp Metabolic Sqy502 AL T(SGPT) 12 U/L 05/27/2017 Comp Metabolic Uli737 BI LI T 0.5 mg/dL 05/27/2017 Comp Metabolic Yik814 AL BUMIN 4.1 g/dL 05/27/2017 Comp Metabolic Mmu115 TP RO 7.1 g/dL 05/27/2017 Comp Metabolic Xke488 GL OB 3.0 g/dL 05/27/2017 Comp Metabolic Zfr151 A/ G Ratio 1.3 Ratio 05/27/2017 Comp Metabolic Lby798 Os mo 281 mOsmo 05/27/2017 Free T4 Liz094 FREE T4 0.91 ng/dL 05/27/2017 Pt Mnf8623 PT 29.2 seconds 04/16/2017 Pt Ogz8883 INR 2.7 04/16/2017 Pt Xnm7204 Low Intensity - 1.5-2.0 04/16/2017 Pt Fhs2857 Mod intensity - 2.0-3.0 04/16/2017 Pt Ifg7701 Hi intensity - 3.0-4.0 04/16/2017 Pt Mks3176 PT 30.7 seconds 03/31/2017 Pt Iqp3085 INR 2.9 03/31/2017 Pt Gpt6871 Low Intensity - 1.5-2.0 03/31/2017 Pt Zhc0196 Mod intensity - 2.0-3.0 03/31/2017 Pt Bzu8395 Hi intensity - 3.0-4.0 03/31/2017 Pt Vku0246 PT 21.3 seconds 03/26/2017 Pt Zsi4521 INR 1.9 03/26/2017 Pt Agt2046 Low Intensity - 1.5-2.0 03/26/2017 Pt Hnq6186 Mod intensity - 2.0-3.0 03/26/2017 Pt Nlj6049 Hi intensity - 3.0-4.0 03/26/2017 Pt Mrs7276 PT 19.8 seconds 03/22/2017 Pt Mgu5306 INR 1.7 03/22/2017 Pt Rxh3683 Low Intensity - 1.5-2.0 03/22/2017 Pt Stw7751 Mod intensity - 2.0-3.0 03/22/2017 Pt Ebx1511 Hi intensity - 3.0-4.0 03/22/2017 Pt Syj8412 PT 15.6 seconds 03/19/2017 Pt Mjc3862 INR 1.3 03/19/2017 Pt Kug5609 Low Intensity - 1.5-2.0 03/19/2017 Pt Nyn2190 Mod intensity - 2.0-3.0 03/19/2017 Pt Jcd9503 Hi intensity - 3.0-4.0 03/19/2017 Pt Jqf2827 PT 13.7 seconds 03/15/2017 Pt Vuq2069 INR 1.1 03/15/2017 Pt Vro0686 Low Intensity - 1.5-2.0 03/15/2017 Pt Dyi2356 Mod intensity - 2.0-3.0 03/15/2017 Pt Ojf2953 Hi intensity - 3.0-4.0 03/15/2017 Pt Mhl7382 PT 25.8 seconds 01/28/2017 Pt Hgg8251 INR 2.4 01/28/2017 Pt Yto8523 Low Intensity - 1.5-2.0 01/28/2017 Pt Mzi9333 Mod intensity - 2.0-3.0 01/28/2017 Pt Fao9135 Hi intensity - 3.0-4.0 01/28/2017 %Hba1C Uqh124 % HbA1c 88360-7 6.4 % 10/23/2016 %Hba1C Gft410 Gluc Ave 137 mg/dL 10/23/2016 Comp Metabolic Brg001 NA 138 mEq/L 10/23/2016 Comp Metabolic Lil726 K 3.4 mEq/L 10/23/2016 Comp Metabolic Szn499 CL 100 mEq/L 10/23/2016 Comp Metabolic Gai536 CO2 30.0 mEq/L 10/23/2016 Comp Metabolic Pne315 AN ION GAP 11 10/23/2016 Comp Metabolic Hok851 GL UCOSE 139 mg/dL 10/23/2016 Comp Metabolic Kbu511 Cr eat 0.9 mg/dL 10/23/2016 Comp Metabolic Grz599 eG FR 62 ml/min/1.73m2 10/23 Comp Metabolic Zqn454 BUN 22 mg/dL 10/23/2016 Comp Metabolic Fvm336 B/ C Ratio 23.4 Ratio 10/23/2016 Comp Metabolic Nzu430 CA LCIUM 8.7 mg/dL 10/23/2016 Comp Metabolic Ynn948 AL K PHOS 66 U/L 10/23/2016 Comp Metabolic Mcx217 T(SGOT) 20 U/L 10/23/2016 Comp Metabolic Zgc243 AL T(SGPT) 10 U/L 10/23/2016 Comp Metabolic Iil551 BI LI T 0.5 mg/dL 10/23/2016 Comp Metabolic Ejw227 AL BUMIN 3.5 g/dL 10/23/2016 Comp Metabolic Hkv000 TP RO 6.3 g/dL 10/23/2016 Comp Metabolic Cdb019 GL OB 2.8 g/dL 10/23/2016 Comp Metabolic Zlf692 A/ G Ratio 1.3 Ratio 10/23/2016 Comp Metabolic Qti519 Os mo 281 mOsmo 10/23/2016 Pt Bgu0680 PT 26.8 seconds 10/23/2016 Pt Byw2518 INR 2.7 10/23/2016 Pt Sub0261 Low Intensity - 1.5-2.0 10/23/2016 Pt Yib7083 Mod intensity - 2.0-3.0 10/23/2016 Pt Yfj3883 Hi intensity - 3.0-4.0 10/23/2016 Pt Vdl9502 PT 28.3 seconds 09/25/2016 Pt Bbb3033 INR 2.8 09/25/2016 Pt Afo7687 Low Intensity - 1.5-2.0 09/25/2016 Pt Rla0242 Mod intensity - 2.0-3.0 09/25/2016 Pt Pwm4624 Hi intensity - 3.0-4.0 09/25/2016 Metabolic Ord15 [...] Metabolic Ord15 CALCIUM 8.8 mg/dL 09/25/2016 Pt Qvg6284 PT 30.6 seconds 09/11/2016 Pt Bwu8997 INR 3.2 09/11/2016 Pt Eug3052 Low Intensity - 1.5-2.0 09/11/2016 Pt Rlx9121 Mod intensity - 2.0-3.0 09/11/2016 Pt Hjw9611 Hi intensity - 3.0-4.0 09/11/2016 Comp Metabolic Rgp573 NA 138 mEq/L 09/11/2016 Comp Metabolic Ttl111 K 4.4 mEq/L 09/11/2016 Comp Metabolic Rhb346 CL 103 mEq/L 09/11/2016 Comp Metabolic Khf064 CO2 31.0 mEq/L 09/11/2016 Comp Metabolic Pqf055 AN ION GAP 8 09/11/2016 Comp Metabolic Lzz658 GL UCOSE 146 mg/dL 09/11/2016 Comp Metabolic Msk459 Cr eat 1.0 mg/dL 09/11/2016 Comp Metabolic Bne411 eG FR 60 ml/min/1.73m2 09/11 Comp Metabolic Arv109 BUN 16 mg/dL 09/11/2016 Comp Metabolic Amg031 B/ C Ratio 16.5 Ratio 09/11/2016 Comp Metabolic Ppa504 CA LCIUM 8.7 mg/dL 09/11/2016 Comp Metabolic Rma896 AL K PHOS 52 U/L 09/11/2016 Comp Metabolic Rnq520 T(SGOT) 19 U/L 09/11/2016 Comp Metabolic Cya013 AL T(SGPT) 11 U/L 09/11/2016 Comp Metabolic Rno065 BI LI T 0.7 mg/dL 09/11/2016 Comp Metabolic Nnx988 AL BUMIN 3.3 g/dL 09/11/2016 Comp Metabolic Vfb637 TP RO 5.8 g/dL 09/11/2016 Comp Metabolic Svc377 GL OB 2.5 g/dL 09/11/2016 Comp Metabolic Leh022 A/ G Ratio 1.3 Ratio 09/11/2016 Comp Metabolic Bcj955 Os mo 280 mOsmo 09/11/2016 C-Reactive Protein Qnt Crqnt CRP 0.1 mg/dl 08/21/2016 Comp Metabolic Lkv022 NA 139 mEq/L 08/21/2016 Comp Metabolic Gtz488 K 4.1 mEq/L 08/21/2016 Comp Metabolic Psk978 CL 102 mEq/L 08/21/2016 Comp Metabolic Fdw562 CO2 30.0 mEq/L 08/21/2016 Comp Metabolic Jes708 AN ION GAP 11 08/21/2016 Comp Metabolic Kcs833 GL UCOSE 148 mg/dL 08/21/2016 Comp Metabolic Umj416 Cr eat 1.0 mg/dL 08/21/2016 Comp Metabolic Sms381 eG FR 55 ml/min/1.73m2 08/21 Comp Metabolic Ozg348 BUN 21 mg/dL 08/21/2016 Comp Metabolic Ics367 B/ C Ratio 20.2 Ratio 08/21/2016 Comp Metabolic Xev755 CA LCIUM 9.4 mg/dL 08/21/2016 Comp Metabolic Cat556 AL K PHOS 63 U/L 08/21/2016 Comp Metabolic Fxk264 T(SGOT) 23 U/L 08/21/2016 Comp Metabolic Hrf612 AL T(SGPT) 16 U/L 08/21/2016 Comp Metabolic Qlz779 BI LI T 0.6 mg/dL 08/21/2016 Comp Metabolic Nll240 AL BUMIN 3.9 g/dL 08/21/2016 Comp Metabolic Nzn926 TP RO 6.8 g/dL 08/21/2016 Comp Metabolic Sos256 GL OB 2.9 g/dL 08/21/2016 Comp Metabolic Asn016 A/ G Ratio 1.4 Ratio 08/21/2016 Comp Metabolic Rpc588 Os mo 283 mOsmo 08/21/2016 Sed Rate Ord21 ESR 16 mm/hr 08/21/2016 Pt Mqb7332 PT 27.2 seconds 08/21/2016 Pt Hxx3815 INR 2.7 08/21/2016 Pt Mqv4048 Low Intensity - 1.5-2.0 08/21/2016 Pt Noy4921 Mod intensity - 2.0-3.0 08/21/2016 Pt Wzv4176 Hi intensity - 3.0-4.0 08/21/2016 Magnesium Ord90 Mag 1.9 mg/dL 08/21/2016 Pt Htg0695 PT 25.9 seconds 06/17/2016 Pt Aqv2876 INR 2.5 06/17/2016 Pt Daj2112 Low Intensity - 1.5-2.0 06/17/2016 Pt Yjc5556 Mod intensity - 2.0-3.0 06/17/2016 Pt Jed5346 Hi intensity - 3.0-4.0 06/17/2016 Tsh Ord6 hTSH II 2.13 uIU/mL 06/08/2016 Free T4 Peh634 FREE T4 0.79 ng/dL 06/08/2016 Cbc With [...] 80.8 fl 06/08/2016 Cbc With Differential Ord2 [place]% 12.0 % 06/08/2016 Cbc With Differential Ord2 [...] 1.40 K/ul 06/08/2016 Cbc With Differential Ord2 [place] ABS# 0.7 K/ul 06/08/2016 Cbc With Differential Ord2 Eos ABS# 0.3 K/ul 06/08/2016 Cbc With Differential Ord2 Baso ABS# 0.1 K/ul 06/08/2016 %Hba1C Txw244 % HbA1c 69238-4 6.2 % 06/08/2016 %Hba1C Tjc194 Gluc Ave 131 mg/dL 06/08/2016 Comp Metabolic Ixc996 NA 138 mEq/L 06/08/2016 Comp Metabolic Vvf449 K 3.9 mEq/L 06/08/2016 Comp Metabolic Wya575 CL 105 mEq/L 06/08/2016 Comp Metabolic Ofr825 CO2 27.0 mEq/L 06/08/2016 Comp Metabolic Bux872 AN ION GAP 10 06/08/2016 Comp Metabolic Qvg529 GL UCOSE 127 mg/dL 06/08/2016 Comp Metabolic Vwi898 Cr eat 1.0 mg/dL 06/08/2016 Comp Metabolic Uhu433 eG FR 59 ml/min/1.73m2 06/08 Comp Metabolic Cea148 BUN 19 mg/dL 06/08/2016 Comp Metabolic Asc687 B/ C Ratio 19.4 Ratio 06/08/2016 Comp Metabolic Uyo217 CA LCIUM 9.2 mg/dL 06/08/2016 Comp Metabolic Rqp009 AL K PHOS 77 U/L 06/08/2016 Comp Metabolic Bfj472 T(SGOT) 19 U/L 06/08/2016 Comp Metabolic Amw411 AL T(SGPT) 13 U/L 06/08/2016 Comp Metabolic Rtu168 BI LI T 0.5 mg/dL 06/08/2016 Comp Metabolic Myx039 AL BUMIN 3.8 g/dL 06/08/2016 Comp Metabolic Pqp421 TP RO 6.6 g/dL 06/08/2016 Comp Metabolic Hos966 GL OB 2.8 g/dL 06/08/2016 Comp Metabolic Etz725 A/ G Ratio 1.4 Ratio 06/08/2016 Comp Metabolic Ilz555 Os mo 280 mOsmo 06/08/2016 Pt Ieu7678 PT 36.1 seconds 06/08/2016 Pt Pqu4765 INR 3.9 06/08/2016 Pt Lut3077 Low Intensity - 1.5-2.0 06/08/2016 Pt Ilc2622 Mod intensity - 2.0-3.0 06/08/2016 Pt Yax3095 Hi intensity - 3.0-4.0 06/08/2016 Lipid Ord30 CHOL 149 mg/dL 06/08/2016 Lipid Ord30 HDL 46.0 mg/dl 06/08/2016 Lipid Ord30 TRIG 279 mg/dL 06/08/2016 Lipid Ord30 LDL 47 mg/dL 06/08/2016 Lipid Ord30 C/HDL 3.2 Ratio 06/08/2016 Pt Vaj5241 PT 30.9 seconds 02/12/2016 Pt Tlr3286 INR 3.2 02/12/2016 Pt Ztt1605 Low Intensity - 1.5-2.0 02/12/2016 Pt Rdw1148 Mod intensity - 2.0-3.0 02/12/2016 Pt Uji1497 Hi intensity - 3.0-4.0 02/12/2016 Free T4 Ujt600 FREE T4 1.24 ng/dL 09/27/2015 %Hba1C Pct261 % HbA1c 57259-9 6.4 % 09/27/2015 %Hba1C Xwi808 Gluc Ave 137 mg/dL 09/27/2015 Tsh Ord6 hTSH II 0.37 uIU/mL 09/27/2015 Pt Aud2950 PT 26.2 seconds 09/27/2015 Pt Rzn3875 INR 2.5 09/27/2015 Pt Huq1960 Low Intensity - 1.5-2.0 09/27/2015 Pt Fld5584 Mod intensity - 2.0-3.0 09/27/2015 Pt Aya1177 Hi intensity - 3.0-4.0 09/27/2015 Pt Bng8405 PT 27.6 seconds 2015 Pt Jqb6226 INR 2.7 2015 Pt Gtz0931 Low Intensity - 1.5-2.0 2015 Pt Dau2943 Mod intensity - 2.0-3.0 2015 Pt Qqd5734 Hi intensity - 3.0-4.0 2015 %Hba1C Rhl799 % HbA1c 18990-6 6.1 % 06/11/2015 %Hba1C Gzo007 Gluc Ave 128 mg/dL 06/11/2015 Cbc With [...] Ord2 RDW 15.8 % 06/10/2015 Comp Metabolic Dos134 NA 139 mEq/L 06/10/2015 Comp Metabolic Doo398 K 4.1 mEq/L 06/10/2015 Comp Metabolic Psi383 CL 105 mEq/L 06/10/2015 Comp Metabolic Zby076 CO2 27.0 mEq/L 06/10/2015 Comp Metabolic Dop876 AN ION GAP 11 06/10/2015 Comp Metabolic Tkd781 GL UCOSE 127 mg/dL 06/10/2015 Comp Metabolic Nkq377 Cr eat 1.0 mg/dL 06/10/2015 Comp Metabolic Ukg754 eG FR 59 ml/min/1.73m2 06/10 Comp Metabolic Vfr380 BUN 21 mg/dL 06/10/2015 Comp Metabolic Puu749 B/ C Ratio 21.2 Ratio 06/10/2015 Comp Metabolic Zru629 CA LCIUM 9.2 mg/dL 06/10/2015 Comp Metabolic Tdv214 AL K PHOS 87 U/L 06/10/2015 Comp Metabolic Iow558 T(SGOT) 20 U/L 06/10/2015 Comp Metabolic Kkf862 AL T(SGPT) 17 U/L 06/10/2015 Comp Metabolic Miv366 BI LI T 0.4 mg/dL 06/10/2015 Comp Metabolic Zpj169 AL BUMIN 4.1 g/dL 06/10/2015 Comp Metabolic Tal798 TP RO 7.2 g/dL 06/10/2015 Comp Metabolic Aho514 GL OB 3.1 g/dL 06/10/2015 Comp Metabolic Tby312 A/ G Ratio 1.3 Ratio 06/10/2015 Comp Metabolic Igh430 Os mo 282 mOsmo 06/10/2015 Tsh Ord6 hTSH II 0.86 uIU/mL 06/10/2015 Lipid Ord30 CHOL 161 mg/dL 06/10/2015 Lipid Ord30 HDL 49.0 mg/dl 06/10/2015 Lipid Ord30 TRIG 208 mg/dL 06/10/2015 Lipid Ord30 LDL 70 mg/dL 06/10/2015 Lipid Ord30 C/HDL 3.3 Ratio 06/10/2015 Pt Wyw2472 PT 25.0 seconds 04/09/2015 Pt Iei0820 INR 2.4 04/09/2015 Pt Njo3148 Low Intensity - 1.5-2.0 04/09/2015 Pt Nmh9441 Mod intensity - 2.0-3.0 04/09/2015 Pt Gio0368 Hi intensity - 3.0-4.0 04/09/2015 Free T4 Eio634 FREE T4 1.05 ng/dL 01/22/2015 Pt Ocv6624 PT 27.2 seconds 01/22/2015 Pt Rrn3722 INR 2.6 01/22/2015 Pt Mea7411 Low Intensity - 1.5-2.0 01/22/2015 Pt Inv0613 Mod intensity - 2.0-3.0 01/22/2015 Pt Zgx7965 Hi intensity - 3.0-4.0 01/22/2015 Cbc With [...] Differential Ord2 RDW 15.2 % 01/22/2015 B12 Zzg740 B12 402.00 pg/ml 01/22/2015 Tsh Ord6 hTSH II 0.65 uIU/mL 01/22/2015 Lipid Ord30 CHOL 166 mg/dL 01/22/2015 Lipid Ord30 HDL 48.0 mg/dl 01/22/2015 Lipid Ord30 TRIG 264 mg/dL 01/22/2015 Lipid Ord30 LDL 65 mg/dL 01/22/2015 Lipid Ord30 C/HDL 3.5 Ratio 01/22/2015 Comp Metabolic Kgk772 NA 138 mEq/L 01/22/2015 Comp Metabolic Vyc032 K 4.1 mEq/L 01/22/2015 Comp Metabolic Xjf255 CL 104 mEq/L 01/22/2015 Comp Metabolic Pcg798 CO2 29.0 mEq/L 01/22/2015 Comp Metabolic Jgm829 AN ION GAP 9 01/22/2015 Comp Metabolic Kjz060 GL UCOSE 106 mg/dL 01/22/2015 Comp Metabolic Hkd626 Cr eat 0.9 mg/dL 01/22/2015 Comp Metabolic Oym905 eG FR 63 ml/min/1.73m2 01/22 Comp Metabolic Knf227 BUN 21 mg/dL 01/22/2015 Comp Metabolic Ykf637 B/ C Ratio 22.3 Ratio 01/22/2015 Comp Metabolic Sgd041 CA LCIUM 9.4 mg/dL 01/22/2015 Comp Metabolic Tqe876 AL K PHOS 83 U/L 01/22/2015 Comp Metabolic Wpg118 T(SGOT) 23 U/L 01/22/2015 Comp Metabolic Aoc945 AL T(SGPT) 18 U/L 01/22/2015 Comp Metabolic Qkr532 BI LI T 0.8 mg/dL 01/22/2015 Comp Metabolic Ehh860 AL BUMIN 4.2 g/dL 01/22/2015 Comp Metabolic Spv527 TP RO 7.3 g/dL 01/22/2015 Comp Metabolic Xde071 GL OB 3.1 g/dL 01/22/2015 Comp Metabolic Tzb286 A/ G Ratio 1.4 Ratio 01/22/2015 Comp Metabolic Yqi166 Os mo 279 mOsmo 01/22/2015 Review of [...] Date URINALYSIS NONAUTO W /O SCOPE CPT-4: 23145 03/05/2017 Vital Signs Date Vital 04/14/2018 Blood Pressure 1: 116/78 Code: 8480-6 BMI: 41.6 Code: 93353-0 Heart Rate 1: 72 bpm Height: 5'1" SpO2: 98% Weight: 220 lbs 01/18/2018 Blood Pressure 1: 132/74 Code: 8480-6 BMI: 43.5 Code: 53040-2 Heart Rate 1: 70 bpm Height: 5'1" SpO2: 97% Weight: 230 lbs 01/04/2018 Blood Pressure 1: 134/76 Code: 8480-6 BMI: 42.7 Code: 23518-4 Heart Rate 1: 83 bpm Height: 5'1" SpO2: 98% Weight: 226 lbs 09/23/2017 Blood Pressure 1: 124/76 Code: 8480-6 BMI: 42.3 Code: 53382-0 Heart Rate 1: 94 bpm Height: 5'1" SpO2: 96% Weight: 224 lbs 05/27/2017 Blood Pressure 1: 146/78 Code: 8480-6 BMI: 41.4 Code: 67850-7 Heart Rate 1: 85 bpm Height: 5'1" SpO2: 98% Weight: 219 lbs 02/24/2017 Blood Pressure 1: 138/66 Code: 8480-6 BMI: 41.4 Code: 58543-1 Heart Rate 1: 78 bpm Height: 5'1" SpO2: 97% Weight: 219 lbs 11/02/2016 Blood Pressure 1: 144/72 Code: 8480-6 BMI: 46.1 Code: 52237-8 Heart Rate 1: 78 bpm Height: 5'1" SpO2: 98% Weight: 244 lbs 09/30/2016 Blood Pressure 1: 130/76 Code: 8480-6 BMI: 45.0 Code: 64346-1 Heart Rate 1: 86 bpm Height: 5'1" SpO2: 98% Weight: 238 lbs 09/10/2016 Blood Pressure 1: 136/68 Code: 8480-6 BMI: 46.3 Code: 55397-8 Heart Rate 1: 83 bpm Height: 5'1" SpO2: 98% Weight: 245 lbs 08/20/2016 Blood Pressure 1: 142/78 Code: 8480-6 BMI: 45.3 Code: 31195-4 Heart Rate 1: 84 bpm Height: 5'1" SpO2: 99% Weight: 240 lbs 06/08/2016 Blood Pressure 1: 134/76 Code: 8480-6 BMI: 44.2 Code: 68713-4 Heart Rate 1: 86 bpm Height: 5'1" SpO2: 96% Weight: 234 lbs 04/02/2016 Blood Pressure 1: 142/70 Code: 8480-6 BMI: 44.6 Code: 40839-3 Heart Rate 1: 78 bpm Height: 5'1" SpO2: 97% Weight: 236 lbs 01/14/2016 Blood Pressure 1: 146/72 Code: 8480-6 BMI: 44.2 Code: 49553-9 Heart Rate 1: 86 bpm Height: 5'1" SpO2: 96% Weight: 234 lbs 10/02/2015 Blood Pressure 1: 158/76 Code: 8480-6 BMI: 44.2 Code: 01052-6 Heart Rate 1: 67 bpm Height: 5'1" SpO2: 97% Weight: 234 lbs 07/15/2015 Blood Pressure 1: 148/78 Code: 8480-6 Blood Pressure 1: 200/90 Code: 8480-6 BMI: 44.0 Code: 62414-4 Heart Rate 1: 89 bpm Height: 5'1" SpO2: 97% Weight: 233 lbs 06/10/2015 Blood Pressure 1: 140/82 Code: 8480-6 BMI: 44.0 Code: 36889-1 Heart Rate 1: 78 bpm Height: 5'1" [...] wearing crocs and there was a new hebrew on the floor: her foot didn't move [...] Encounter Performer Loca tion Codes Date () [id number] EST. P ATIENT, LEVEL IV Diagnosis: Essential (primary) hypertension[ICD10: I10] Diagnosis: Hypothyroidism, unspecified[ICD10: E03.9] Diagnosis: Impaired fasting glucose[ICD10: R73.01] Diagnosis: meterman (current) use of anticoagulants[ICD10: Z79.01] Edna Almanza MD, [facility] CPT-4: 24567 04/14/2018 ([id number]) [id number] EST. P ATIENT, LEVEL III Diagnosis: Localized edema[ICD10: R60.0] Diagnosis: Gastro-esophageal reflux disease without esophagitis[ICD10: K21.9] Edna Almanza MD, [facility] CPT-4: 12078 01/18/2018 ([id number]) 12094 EST. P ATIENT, LEVEL IV Diagnosis: Gastro-esophageal reflux disease without esophagitis[ICD10: K21.9] Diagnosis: Localized edema[ICD10: R60.0] Diagnosis: Essential (primary) hypertension[ICD10: I10] Diagnosis: Hypothyroidism, unspecified[ICD10: E03.9] Diagnosis: Impaired fasting glucose[ICD10: R73.01] Edna Almanza MD, [facility] CPT-4: 05995 01/04/2018 ([id number]) [id number] EST. P ATIENT, LEVEL IV Diagnosis: Essential (primary) hypertension[ICD10: I10] Diagnosis: FPC (current) use of anticoagulants[ICD10: Z79.01] Diagnosis: Incisional hernia without obstruction or gangrene[ICD10: K43.2] Diagnosis: Right lower quadrant pain[ICD10: R10.31] Sarai Almanza MD, [facility] [facility] CPT[facility] 52987 09/23/2017 ([id number]) [id number] EST. P ATIENT, LEVEL IV Diagnosis: Essential (primary) hypertension[ICD10: I10] Diagnosis: Mixed hyperlipidemia[ICD10: E78.2] Diagnosis: Hypothyroidism, unspecified[ICD10: E03.9] Diagnosis: Impaired fasting glucose[ICD10: R73.01] Diagnosis: FPC (current) use of anticoagulants[ICD10: Z79.01] Edna Almanza MD, [facility] CPT-4: 19486 05/27/2017 04802 EST. PATIENT, LEVEL III Diagnosis: Pain in right hip[ICD10: M25.551] Nata Almanza MD, [facility] CPT-4: 21239 02/24/2017 ([id number]) 09847 EST. P ATIENT, LEVEL IV Diagnosis: Essential (primary) hypertension[ICD10: I10] Diagnosis: Localized edema[ICD10: R60.0] Diagnosis: Pain in right hip[ICD10: M25.551] Sarai Almanza MD, [facility] CPT-4: 06645 11/02/2016 ([id number]) 28367 EST. P ATIENT, LEVEL IV Diagnosis: Essential (primary) hypertension[ICD10: I10] Diagnosis: Localized edema[ICD10: R60.0] Sarai Almanza MD, [facility] CPT-4: 86745 09/30/2016 [id number] EST. PATIENT, LEVEL IV Diagnosis: Localized edema[ICD10: R60.0] Diagnosis: Pain in joints of left hand[ICD10: M25.542] Diagnosis: Pain in joints of right hand[ICD10: M25.541] Nata Almanza MD, [facility] CPT-4: 87387 09/10/2016 41652 EST. PATIENT, LEVEL IV Diagnosis: Localized edema[ICD10: R60.0] Diagnosis: Pain in joints of left hand[ICD10: M25.542] Diagnosis: Pain in joints of right hand[ICD10: M25.541] Diagnosis: Other fatigue[ICD10: R53.83] Nata Almanza MD, [facility] CPT-4: 08495 08/20/2016 63876 EST. PATIENT, LEVEL IV Diagnosis: Essential (primary) hypertension[ICD10: I10] Diagnosis: Other prison (current) drug therapy[ICD10: Z79.899] Diagnosis: Tinnitus, bilateral[ICD10: H93.13] Nata Almanza MD, [facility] CPT-4: 99064 06/08/2016 07625 EST. PATIENT, LEVEL IV Diagnosis: Other allergic rhinitis[ICD10: J30.89] Diagnosis: Acute laryngopharyngitis[ICD10: J06.0] Nata Almanza MD, [facility] CPT-4: 50953 04/02/2016 07747 EST. PATIENT, LEVEL IV Diagnosis: Left upper quadrant pain[ICD10: R10.12] Nata Almanza MD, [facility] CPT-4: 98611 01/14/2016 69720 EST. PATIENT, LEVEL IV Diagnosis: Pain in left shoulder[ICD10: M25.512] Diagnosis: Body mass index (BMI) 40.0-44.9, adult[ICD10: Z68.41] Nata Almanza MD, [facility] CPT-4: 32248 10/02/2015 40027 EST. PATIENT, LEVEL IV Diagnosis: Pain in left leg[ICD10: M79.605] Diagnosis: Other prison (current) drug therapy[ICD10: Z79.899] Nata Almanza MD, [facility] CPT-4: 15302 07/15/2015 ([id number]) 84401 EST. 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] Edna Almanza MD, [facility] CPT-4: 45344 06/10/2015 ([id number]) OFFICE VISI T, NEW - LEVEL 4 Diagnosis: ESSENTIAL HYPERTENSION[ICD9: 401.9] Diagnosis: HYPOTHYROIDISM[ICD9: 244.9] Diagnosis: ENCNTR LONG-RX USE NEC[ICD9: V58.69] Diagnosis: HYPERLIPIDEMIA[ICD9: 272.4] Diagnosis: Vitamin B12 deficiency[ICD9: 266.2] Diagnosis: Status post gastric surgery[ICD9: V45.89] Diagnosis: Snoring[ICD9: 786.09] Sarai Almanza MD, [facility] CPT-4: 01064 01/22/2015 Plan of Care Planned Activity Notes [...] A1C 04/14/2018 Appointment: Edna Douglas WPtel: [phone] (15 min) Moderate 04/14/2018 Patient Education: Patient [...] to further attempt to reduce peripheral edema. BOGC-zpfjaqwz-lwtrsczi prilosec BID and carafate QID -discussed low spice, low acidic diet 01/18/2018 Appointment: Edna Douglas WPtel: [phone] [place] [phone] (15 min) Moderate 01/18/2018 Patient Education: Patient [...] of control. 01/04/2018 Appointment: Edna Douglas WPtel: [address] [place], [place] [phone] (30 min) Complex 01/04/2018 Patient Education: Patient Medication Summary Completed 01/04/2018 Care Plan: SCREENINGMAMMOGRAPHYDIGITAL LOINC : 92978-1 Pending 01/04/2018 Visit Plan: Abdominal hernia - not able to be taken to surgery by local providers and pt has been seen at [facility] and that surgeon felt like [place] would be better served by Dr. Betancur [...] at home. 09/23/2017 Appointment: [phone] ([facility] min) Moderate 09/23/2017 Patient Education: [...] medications. 05/27/2017 App[facility]ment: [phone] (30 min) Complex 05/27/2017 Patient Education: [...] [place]. 02/24/2017 Appointment: Nata Hsu WPtel: [phone] [facility] (30 min) Complex 02/24/2017 Patient Education: [...] [place]. 11/02/2016 Appointment: Sarai Almanza WPtel: [phone] [facility] (15 min) Moderate 11/02/2016 Patient [...] peripheral edema. 09/30/2016 Appointment: Sarai Almanza WPtel: [facility] (15 min) Moderate 09/30/2016 Patient Education: [...] peripheral edema. 09/10/2016 Appointment: Nata Hsu WPtel: [facility] (30 min) Complex 09/10/2016 Patient Education: [...] peripheral edema. 08/20/2016 Appointment: Nata Hsu WPtel: [facility] [address] (30 min) Complex 08/20/2016 Patient Education: Patient Medication Summary Completed 08/20/2016 Referral: Otf Lee [address] Referral Initiated 07/02/2016 Visit Plan: Chronic [...] 06/08/2016 Care Plan: Referral Order SNOMED-CT : [id number] Pending 06/08/2016 Visit Plan: URI - Pt [...] spray. 04/02/2016 Appointment: Nata Hsu WPtel: [phone] [facility] (30 min) Complex 04/02/2016 Patient Education: Patient [...] pain 01/14/2016 Appointment: Edna Douglas WPtel: [phone] [place] [phone] (30 min) Complex 01/14/2016 Patient Education: Patient Medication Summary Completed 01/14/2016 Patient Education: Obesity Completed 01/14/2016 Care Plan: BMI Above normal followup DAVID F-MGMT EDUC & TRAIN 1 PT Pending 10/24/2015 Care Plan: X-RAY EXAM OF SHOULDER LOINC : 20929-0 Pending 10/24/2015 Visit Plan: Left shoulder pain [...] check. 10/02/2015 Appointment: Edna Douglas WPtel: [phone] [phone] (15 min) Moderate 10/02/2015 Patient Education: [...] ses Completed 06/10/2015 Appointment: Sarai Almanza WPtel: [facility]5 [facility] (15 min) Moderate 04/22/2015 Visit [...] have surgical fixation - planning occurring at [facility]. Snoring - Sleep apnea symptoms [...] to medications. 01/22/2015 Appointment: Sarai Almanza WPtel: [address] [place], [place] [phone] [place] ([place]) New Patient 01/22/2015 Patient Education: Patient Medication Summary Completed 01/22/2015 Patient Education: Hypertension Completed 01/22/2015 Referral: [facility] Referral Initiated Instructions Comment . Edema - [...] and pt has been seen at [facility] and that surgeon felt like [place] would be better served by Dr. Betancur at [facility]. I have recommended a referral [...] have surgical fixation - planning occurring at [facility]. Snoring - Sleep apnea symptoms [...] to further attempt to reduce peripheral edema. BBOV-qpvbytrk-bkfdfpya prilosec BID and carafate QID -discussed low [...]
--- OUTSIDE RECORDS SUMMARY | 2020-01-16 23:42 | XMS REPORT | CCD ---
Author Author Kat Almanza Organization Sarai Almanza MD, [facility] Address [address] [place] [address] Phone Care Team Providers Care Deputy Brand Inspector Name Role Phone PP Unavailable CCM Unavailable Summary Purpose Interface Exchange Insurance Providers Payer name Policy type / Coverage type Covered democrat ID Effective Begin Date Effective End Date WPS Medicare Part B Medicare Part B [id number] 2017 [address] Medicare Part B [id number] 2017 Unknown Family history Father Diagnosis Age At Onset Hyperlipidemia Unknown Heart Attack Unknown Mother Diagnosis Age At Onset Arthritis Unknown Social History Social History Element Codes Description Effective Dates Marital status Unknown M arried Nathan 09/30/2016 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 Number of children Unknown 3 01/22/[address]: 404234845 Never smoker 01/22/[address]: 800633431 Never drinks alcohol 01/22/2015 Allergies, Adverse Reactions, [...] ICD-9: 790.21 ICD-10: R73.01 Active 05/27/2017 Unknown nursing home (current) use of anticoagulants ICD-9: V58.61 ICD-10: [...] ICD-10: R53.83 Active 08/20/2016 Unknown 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 [...] cose ICD-9: 790.21 ICD-10: R73.01 05/27/2017 Active 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 [...] 75 mg capsule,extended release 24 hr RxNorm: 711650 Capsule(s) TAKE 1 CAPSULE BY MOUTH ONCE DAILY 06/23/2018 06/17/2019 Active Generic For:*EFFEXOR XR 75MG 06/19/2017 12:23:45 PM sodium bicarbonate 6 50 mg tablet RxNorm: 219649 Tablet(s) TAKE 2 TABL ETS BY MOUTH TWICE DAILY 06/23/2018 12/19/2018 Active 12/20/2017 9:10:59 AM Coumadin 1 mg tablet RxNorm: 082880 1 Tablet(s) PO daily 06/17/2018 07/16/2018 Active Coumadin 1 mg tablet RxNorm: 336522 1 Tablet(s) PO daily 06/17/2018 06/16/2018 Inactive clonazepam 0.5 mg ta blet RxNorm: 072932 1 Tablet(s) PO BID 06/08/2018 11/04/2018 Active Carafate 1 gram tablet RxNorm: 250231 TAKE ONE TABLET BY MOUTH BEFORE MEALS AN D AT BEDTIME 05/18/2018 07/12/2018 Active Generic For:CARAFATE 1GM 8:38:28 AM Synthroid 137 mcg ta blet RxNorm: 423346 TAKE 1 TABLET BY MOUT H ONCE DAILY 05/18/2018 11/13/2018 Ac tive Generic For:SYNTHROID 137MCG TAB 2017 8:57:54 AM spironolactone 25 mg tablet RxNorm: 421639 TAKE 1 TABLET BY MOUT H EVERY DAY 05/18/2018 05/12/2019 Ac tive Generic For:*ALDACTONE 25MG 05/18/2018 8:57:50 AM allopurinol 300 mg t ablet RxNorm: 706579 TAKE 1 TABLET BY MOUT H ONCE DAILY. 04/18/2018 10/14/2018 Ac tive Generic For:ZYLOPRIM 300 MG TABLET 03/22 9:13:47 AM Lasix 20 mg tablet RxNorm: 083126 TAKE ONE TABLET BY MOUTH DAILY 04/18/2018 08/15/2018 Ac tive Generic For:LASIX 20MG 04/18/2018 9:13: 50 AM Carafate 1 gram tablet RxNorm: 220595 TAKE ONE TABLET BY MOUTH BEFORE MEALS AN D AT BEDTIME 04/18/2018 05/17/2018 Inactive Generic For:CARAFATE 1GM 1 9:32:51 AM Coumadin 5 mg tablet RxNorm: 468952 TAKE 1 TABLET BY MOUTH DIRECTED 03/21/2018 09/16/2018 Ac tive Generic For:COUMADIN 5MG TAB 03/21/2018 9:13:00 AM Carafate 1 gram tablet RxNorm: 896180 TAKE ONE TABLET BY MOUTH BEFORE MEALS AN D AT BEDTIME 03/21/2018 04/17/2018 Inactive Generic For:CARAFATE 1GM 1 9:14:24 AM Carafate 1 gram tablet RxNorm: 119612 1 Tablet(s) PO AC & HS 02/17/2018 03/20/2018 Inactive atenolol 100 mg tablet RxNorm: 241655 1 Tablet(s) PO daily 02/04/2018 09/01/2018 Active atenolol 50 mg tablet RxNorm: 060953 1 Tablet(s) PO daily 02/03/2018 02/03/2018 Inactive omeprazole 20 mg cap sean,delayed release RxNorm: 987639 1 Capsule(s) BID 01/21/2018 01/15/2019 Ac tive Generic For:PRILOSEC 20MG 07/22/2017 8:5 8:20 AM Carafate 1 gram tablet RxNorm: 271009 1 Tablet(s) PO AC & HS 01/21/2018 02/16/2018 Inactive Carafate 1 gram tablet RxNorm: 747094 1 Tablet(s) PO AC & HS 01/18/2018 01/20/2018 Inactive Carafate 1 gram tablet RxNorm: 920221 1 Tablet(s) PO AC & HS 01/18/2018 02/27/2018 Inactive Carafate 1 gram tablet RxNorm: 902276 1 Tablet(s) PO AC & HS TAKE ONE TABLET B Y MOUTH TWICE DAILY 01/18/2018 05/17/2018 Inactive Generic For:CARAFATE 1GM 0 12/20/2017 9:10:56 AM omeprazole 20 mg cap sean,delayed release RxNorm: 120393 Capsule(s) TAKE 1 CAP SEAN BY MOUTH EVERY DAY 01/17/2018 01/20/2018 Inactive Generic For:PRILOSEC 20MG 0 07/22/2017 8:58:20 AM omeprazole 20 mg cap sean,delayed release RxNorm: 342685 Capsule(s) TAKE 1 CAP SEAN BY MOUTH EVERY DAY 01/14/2018 01/16/2018 Inactive Generic For:PRILOSEC 20MG 07/22/2017 8:58:20 AM Plavix 75 mg tablet RxNorm: 001099 1 Tablet(s) PO daily 01/07/2018 07/05/2018 Active clonazepam 0.5 mg ta blet RxNorm: 738406 1 Tablet(s) PO BID 01/07/2018 06/05/2018 Inactive Carafate 1 gram tablet RxNorm: 538675 1 Tablet(s) PO AC & HS 01/04/2018 01/17/2018 Inactive Lasix 20 mg tablet RxNorm: 181296 TAKE ONE TABLET BY MOUTH DAILY 12/20/2017 04/17/2018 In active Generic For:LASIX 20MG 12/20/2017 9:11: 03 AM sodium bicarbonate 6 50 mg tablet RxNorm: 494883 TAKE 2 TABLETS BY JAVON TH TWICE DAILY 12/20/2017 06/17/2018 In active 12/20/2017 9:10:59 AM Carafate 1 gram tablet RxNorm: 441774 TAKE ONE TABLET BY MOUTH TWICE DAILY 12/20/2017 01/17/2018 In active Generic For:CARAFATE 1GM 12/20/2017 9:1 0:56 AM Synthroid 137 mcg ta blet RxNorm: 769686 TAKE 1 TABLET BY MOUT H ONCE DAILY 11/19/2017 05/17/2018 In active Generic For:SYNTHROID 137MCG TAB 2017 8:58:04 AM Detrol LA 4 mg capsu le,extended release RxNorm: 078420 TAKE 1 CAPSULE BY JAVON TH ONCE DAILY 10/20/2017 04/13/2018 Inactive Generic For:DETROL LA 4MG C AP 10/20/2017 9:01:56 AM allopurinol 300 mg t ablet RxNorm: 624521 TAKE 1 TABLET BY MOUT H ONCE DAILY. 10/20/2017 04/17/2018 In active Generic For:ZYLOPRIM 300 MG TABLET 07/2017 9:01:59 AM Coumadin 5 mg tablet RxNorm: 076048 1 Tablet(s) PO UD 10/01/2017 03/20/2018 Inactive cyclobenzaprine 5 mg tablet RxNorm: 233112 1 Tablet(s) PO TID as needed myscle spasm 09/23/2017 10/12/2017 Inactive Lipitor 40 mg tablet RxNorm: 794299 TAKE 1 TABLET BY MOUTH ONCE DAILY 09/20/2017 09/14/2018 Ac tive Generic For:LIPITOR 40MG 09/20/2017 8:5 6:04 AM atenolol 100 mg tablet RxNorm: 066498 1 Tablet(s) PO daily 08/30/2017 02/03/2018 Inactive atenolol 50 mg tablet RxNorm: 501774 1 Tablet(s) PO daily 08/30/2017 08/30/2017 Inactive Lovenox 30 mg/0.3 mL subcutaneous syringe RxNorm: 458804 0.3 Milliliter(s) SQ Q12H 08/24/2017 09/06/2017 In active Lasix 20 mg tablet RxNorm: 134763 TAKE ONE TABLET BY MOUTH DAILY 08/23/2017 12/19/2017 In active Generic For:LASIX 20MG 08/21/2017 9:04: 27 AM Synthroid 137 mcg ta blet RxNorm: 794521 TAKE 1 TABLET BY MOUT H ONCE DAILY 08/23/2017 11/18/2017 In active Generic For:SYNTHROID 137MCG TAB 2017 9:04:30 AM Lovenox 30 mg/0.3 mL subcutaneous syringe RxNorm: 034835 0.3 Milliliter(s) SQ Q12H 08/10/2017 08/23/2017 In active clonazepam 0.5 mg ta blet RxNorm: 130607 1 Tablet(s) PO BID 08/04/2017 12/30/2017 Inactive Coumadin 4 mg tablet RxNorm: 629219 TAKE 1 TABLET BY MOUTH THREE TIMES PER [place] (WEDNESDAY, WEDNESDAY AND WEDNESDAY) 07/22/2017 02/16/2018 Inactive Generic For:COUMADIN 4MG 07/22/2017 8:58:26 AM Coumadin 4 mg tablet RxNorm: 168897 TAKE 1 TABLET BY MOUTH THREE TIMES PER [place] (WEDNESDAY, WEDNESDAY AND WEDNESDAY) 07/22/2017 02/16/2018 Inactive Generic For:COUMADIN 4MG 07/22/2017 8:58:26 AM omeprazole 20 mg cap sean,delayed release RxNorm: 461433 TAKE 1 CAPSULE BY JAVON TH EVERY DAY 07/22/2017 01/13/2018 Inactive Generic For:PRILOSEC 20MG 07/22/2017 8: 58:20 AM sodium bicarbonate 6 50 mg tablet RxNorm: 573095 TAKE 2 TABLETS BY JAVON TH TWICE DAILY 06/22/2017 12/18/2017 In active 06/19/2017 12:23:30 PM venlafaxine ER 75 mg capsule,extended release 24 hr RxNorm: 203757 TAKE 1 CAPSULE BY MOUTH ONCE DAILY 06/22/2017 06/16/2018 Inactive Generic For:*EFFEXOR XR 75M G 06/19/2017 12:23:45 PM Coumadin 5 mg tablet RxNorm: 195248 1 Tablet(s) PO UD 06/01/2017 09/30/2017 Inactive Keflex 500 mg capsule RxNorm: 845599 1 Capsule(s) PO TID 05/27/2017 06/02/2017 Inactive Synthroid 137 mcg ta blet RxNorm: 031897 TAKE 1 TABLET BY MOUT H ONCE DAILY 05/24/2017 08/21/2017 In active Generic For:SYNTHROID 137MCG TAB 2016 8:55:59 AM Carafate 1 gram tablet RxNorm: 323287 TAKE ONE TABLET BY MOUTH TWICE DAILY 05/24/2017 12/19/2017 In active Generic For:CARAFATE 1GM 05/24/2017 8:5 5:54 AM spironolactone 25 mg tablet RxNorm: 203596 1 Tablet(s) PO daily 05/24/2017 05/17/2018 Inactive Detrol LA 4 mg capsu le,extended release RxNorm: 604364 1 Capsule(s) PO daily TAKE 1 CAPSULE BY MOUTH ONCE DAILY 05/10/2017 10/19/2017 Inactive Generic For:DETROL LA 4MG CAP 02/19/2017 2:36:00 PM Lasix 20 mg tablet RxNorm: 377097 TAKE ONE TABLET BY MOUTH DAILY 04/23/2017 08/20/2017 In active Generic For:LASIX 20MG 04/23/2017 9:04: 01 AM Coumadin 4 mg tablet RxNorm: 119278 TAKE 1 TABLET BY MOUTH THREE TIMES PER [place] (WEDNESDAY, WEDNESDAY AND WEDNESDAY) 04/23/2017 07/21/2017 Inactive Generic For:COUMADIN 4MG 04/23/2017 9:04:05 AM allopurinol 300 mg t ablet RxNorm: 821214 TAKE 1 TABLET BY MOUT H ONCE DAILY. 04/23/2017 10/19/2017 In active Generic For:ZYLOPRIM 300 MG TABLET 08/2016 9:03:57 AM potassium chloride 2 0 mEq/15 mL oral liquid RxNorm: 201209 Milliliter(s) 30 Milliliter(s) (40mEq) PO daily 03/24/2017 07/21/2017 Inactive Lovenox 30 mg/0.3 mL subcutaneous syringe RxNorm: 920577 0.3 Milliliter(s) SQ Q12H 03/22/2017 03/26/2017 In active Lovenox 30 mg/0.3 mL subcutaneous syringe RxNorm: 188873 0.3 Milliliter(s) SQ Q12H 03/19/2017 03/20/2017 In active Lovenox 30 mg/0.3 mL subcutaneous syringe RxNorm: 092028 0.3 Milliliter(s) SQ Q12H 03/16/2017 03/18/2017 In active clonazepam 0.5 mg ta blet RxNorm: 981121 1 Tablet(s) PO BID 03/02/2017 07/28/2017 Inactive Lovenox 30 mg/0.3 mL subcutaneous syringe RxNorm: 930919 1 injection SQ BID do NOT take the night time dose the day before surgery, or the morning dose the day of surgery 03/01/2017 03/07/2017 Inactive Lovenox 30 mg/0.3 mL subcutaneous syringe RxNorm: 017461 1 injection SQ BID 03/01/2017 02/28/2017 In active Detrol LA 4 mg capsu le,extended release RxNorm: 301065 TAKE 1 CAPSULE BY JAVON TH ONCE DAILY 02/19/2017 05/09/2017 Inactive Generic For:DETROL LA 4MG C AP 02/19/2017 2:36:00 PM hydrocodone 5 mg-humberto taminophen 325 mg tablet RxNorm: 810688 1-2 Tablet(s) PO Q6 P RN 02/04/2017 No Stop Date Active Zetia 10 mg tablet RxNorm: 786840 TAKE 1 TABLET BY MOUTH DAILY 01/25/2017 04/13/2018 Inactive 01/23/2017 9:03:48 AM omeprazole 20 mg cap sean,delayed release RxNorm: 543589 TAKE 1 CAPSULE BY JAVON TH EVERY DAY 01/25/2017 07/21/2017 Inactive Generic For:PRILOSEC 20MG 01/23/2017 9: 03:45 AM Coumadin 4 mg tablet RxNorm: 766780 TAKE 1 TABLET BY MOUTH THREE TIMES PER [place] (WEDNESDAY, WEDNESDAY AND WEDNESDAY) 01/25/2017 04/22/2017 Inactive Generic For:COUMADIN 4MG 01/23/2017 9:03:51 AM sodium bicarbonate 6 50 mg tablet RxNorm: 627589 TAKE 2 TABLETS BY JAVON TH TWICE DAILY 12/24/2016 06/21/2017 In active 12/24/2016 9:09:27 AM Lasix 20 mg tablet RxNorm: 144389 1 Tablet(s) PO daily 12/24/2016 04/22/2017 Inactive Synthroid 137 mcg ta blet RxNorm: 065222 TAKE 1 TABLET BY MOUT H ONCE DAILY 11/24/2016 05/22/2017 In active Generic For:SYNTHROID 137MCG TAB 2016 9:04:37 AM Coumadin 4 mg tablet RxNorm: 608015 TAKE 1 TABLET BY MOUTH THREE TIMES PER [place] (WEDNESDAY, WEDNESDAY AND WEDNESDAY) 11/24/2016 01/22/2017 Inactive Generic For:COUMADIN 4MG 11/24/2016 9:04:41 AM hydrocodone 5 mg-humberto taminophen 325 mg tablet RxNorm: 082458 1-2 Tablet(s) PO Q6 P RN 11/17/2016 02/03/2017 In active Carafate 1 gram tablet RxNorm: 926332 TAKE ONE TABLET BY MOUTH TWICE DAILY 10/27/2016 05/23/2017 In active Generic For:CARAFATE 1GM 10/26/2016 8:3 9:42 AM allopurinol 300 mg t ablet RxNorm: 723591 Tablet(s) TAKE 1 TABL ET BY MOUTH ONCE DAILY. 10/26/2016 04/22/2017 Inactive Lipitor 40 mg tablet RxNorm: 050999 1 Tablet(s) PO daily 09/25/2016 09/19/2017 Inactive Coumadin 4 mg tablet RxNorm: 242719 TAKE 1 TABLET BY MOUTH THREE TIMES PER [place] (WEDNESDAY, WEDNESDAY AND WEDNESDAY) 09/25/2016 11/23/2016 Inactive Generic For:COUMADIN 4MG 09/25/2016 8:55:58 AM Zetia 10 mg tablet RxNorm: 538195 1 Tablet(s) PO daily 09/25/2016 01/22/2017 Inactive gave 1 month of samples clonazepam 0.5 mg ta blet RxNorm: 294339 1 Tablet(s) PO BID 09/21/2016 02/16/2017 Inactive Lasix 20 mg tablet RxNorm: 348640 1 Tablet(s) PO daily 09/15/2016 12/23/2016 Inactive potassium chloride 2 0 mEq/15 mL oral liquid RxNorm: 166319 Milliliter(s) 30 Milliliter(s) (40mEq) PO daily 09/15/2016 01/12/2017 Inactive Lasix 20 mg tablet RxNorm: 446735 2 Tablet(s) PO daily 09/10/2016 09/12/2016 Inactive Lasix 20 mg tablet RxNorm: 587374 1 Tablet(s) PO daily 08/28/2016 08/30/2016 Inactive Lasix 20 mg tablet RxNorm: 661949 1 Tablet(s) PO daily 08/20/2016 08/22/2016 Inactive Detrol LA 4 mg capsu le,extended release RxNorm: 508562 TAKE 1 CAPSULE BY JAVON TH ONCE DAILY 07/27/2016 02/18/2017 Inactive Generic For:DETROL LA 4MG C AP 07/27/2016 9:08:27 AM Coumadin 4 mg tablet RxNorm: 369790 1 Tablet(s) PO 3 x week tue thur and sun 07/27/2016 09/24/2016 In active omeprazole 20 mg cap sean,delayed release RxNorm: 237412 Capsule(s) PO TAKE 1 CAPSULE BY MOUTH ONCE DAILY 07/27/2016 01/22/2017 Inactive venlafaxine ER 75 mg capsule,extended release 24 hr RxNorm: 933499 1 Capsule(s) PO daily 06/29/2016 06/21/2017 Inactive sodium bicarbonate 6 50 mg tablet RxNorm: 297000 TAKE 2 TABLETS BY JAVON TWICE DAILY 06/29/2016 12/23/2016 In active 06/27/2016 9:05:39 AM Coumadin 4 mg tablet RxNorm: 394483 1 Tablet(s) PO 3 x week tue thur and sun 06/09/2016 06/08/2016 In active Coumadin 4 mg tablet RxNorm: 740688 1 Tablet(s) PO 3 x week tue thur and sun 06/09/2016 07/26/2016 In active Zetia 10 mg tablet RxNorm: 922060 1 Tablet(s) PO daily 06/09/2016 06/08/2016 Inactive gave 1 month of samples Zetia 10 mg tablet RxNorm: 283310 1 Tablet(s) PO daily 06/09/2016 09/24/2016 Inactive gave 1 month of samples Effexor 75 mg tablet RxNorm: 676017 1 Tablet(s) PO daily 06/08/2016 06/28/2016 Inactive spironolactone 25 mg tablet RxNorm: 808544 1 Tablet(s) PO daily 06/08/2016 05/23/2017 Inactive Synthroid 137 mcg ta blet RxNorm: 854065 1 Tablet(s) PO daily 05/07/2016 11/02/2016 Inactive allopurinol 300 mg t ablet RxNorm: 880473 Tablet(s) TAKE 1 TABL ET BY MOUTH ONCE DAILY. 04/28/2016 10/24/2016 Inactive clonazepam 0.5 mg ta blet RxNorm: 714433 1 Tablet(s) PO BID 04/20/2016 09/15/2016 Inactive Flonase Allergy Reli ef 50 mcg/actuation nasal spray,suspension RxNorm: 2238335 1 [place] NASAL BID 04/02/2016 No Stop Date Active Zithromax Z-Thomas 250 mg tablet RxNorm: 491620 Tablet(s) PO 04/02/2016 08/27/2016 Inactive cetirizine 10 mg tablet RxNorm: 5778921 1 Tablet(s) PO daily 04/02/2016 05/01/2016 Inactive Carafate 1 gram tablet RxNorm: 291494 Tablet(s) TAKE 1 TABLET TWICE A DAY FOR 30 DAYS 03/30/2016 10/25/2016 Inactive Generic For:CARAFATE 1GM 02/08/2015 12:3 6:39 PM Plavix 75 mg tablet RxNorm: 671345 1 Tablet(s) PO daily 03/11/2016 09/06/2016 Inactive sodium bicarbonate 6 50 mg tablet RxNorm: 596006 Tablet(s) 2 Tablet(s) PO BID 02/28/2016 06/26/2016 In active omeprazole 20 mg cap sean,delayed release RxNorm: 674198 Capsule(s) PO TAKE 1 CAPSULE BY MOUTH ONCE DAILY 01/31/2016 07/26/2016 Inactive Fish Oil 1,000 mg ca psule RxNorm: 1 Capsule(s) PO BID 01/14/2016 No Stop Date Active Synthroid 137 mcg ta blet RxNorm: 679198 1 Tablet(s) PO daily 01/14/2016 05/06/2016 Inactive Detrol LA 4 mg capsu le,extended release RxNorm: 439495 TAKE 1 CAPSULE BY JAVON TH ONCE DAILY 12/30/2015 07/26/2016 Inactive Generic For:DETROL LA 4MG C AP 12/30/2015 9:11:01 AM potassium chloride 2 0 mEq/15 mL oral liquid RxNorm: 103930 Milliliter(s) 30 Milliliter(s) (40mEq) PO daily 12/02/2015 03/30/2016 Inactive sodium bicarbonate 6 50 mg tablet RxNorm: 044918 Tablet(s) 2 Tablet(s) PO BID 10/31/2015 02/27/2016 In active Lipitor 40 mg tablet RxNorm: 281366 1 Tablet(s) PO daily 10/09/2015 09/24/2016 Inactive sodium bicarbonate 6 50 mg tablet RxNorm: 792360 2 Tablet(s) PO BID 10/01/2015 10/30/2015 Inactive allopurinol 300 mg t ablet RxNorm: 876810 TAKE 1 TABLET BY MOUT H ONCE DAILY. 10/01/2015 04/27/2016 In active Generic For:ZYLOPRIM 300 MG TABLET 09/19 9:21:15 AM clonazepam 0.5 mg ta blet RxNorm: 084332 1 Tablet(s) PO BID 09/30/2015 04/19/2016 Inactive Coumadin 5 mg tablet RxNorm: 482002 1 Tablet(s) PO daily 09/27/2015 05/31/2017 Inactive Generic For:COUMADIN 5MG TAB N O T I C E PRESCRIPTION PREVIOUSLY AUTHORIZED BY DOCTOR:BOBBY ZULETA Synthroid 125 mcg ta blet RxNorm: 621440 1 Tablet(s) PO daily 09/27/2015 09/26/2015 Inactive Synthroid 125 mcg ta blet RxNorm: 436580 1 Tablet(s) PO daily 09/27/2015 01/13/2016 Inactive Carafate 1 gram tablet RxNorm: 456428 Tablet(s) TAKE 1 TABLET TWICE A DAY FOR 30 DAYS 09/02/2015 03/29/2016 Inactive Generic For:CARAFATE 1GM 02/08/2015 12:3 6:39 PM sodium bicarbonate 6 50 mg tablet RxNorm: 211689 2 Tablet(s) PO BID 09/02/2015 09/30/2015 Inactive Prilosec 20 mg capsu le,delayed release RxNorm: 203937 TAKE 1 CAPSULE BY JAVON TH ONCE DAILY 08/02/2015 01/28/2016 Inactive Generic For:PRILOSEC 20MG 08/02/2015 10:03:09 AM N O T I C E PRESCRIPTION PREVIOUSLY AUTHORIZED BY DOCTOR:BOBBY ZULETA Zyrtec 10 mg capsule RxNorm: 8204415 1 Capsule(s) PO daily 07/15/2015 08/13/2015 Inactive Keflex 500 mg capsule RxNorm: 661464 1 Capsule(s) PO TID 07/15/2015 07/21/2015 Inactive cetirizine 10 mg cap sean RxNorm: 3283685 1 Capsule(s) PO daily 07/15/2015 08/13/2015 Inactive hydrocodone 5 mg-humberto taminophen 325 mg tablet RxNorm: 025186 1-2 Tablet(s) PO Q6 P RN 06/10/2015 11/16/2016 In active sodium bicarbonate 6 50 mg tablet RxNorm: 418483 2 Tablet(s) PO BID 06/03/2015 08/31/2015 Inactive Detrol LA 4 mg capsu le,extended release RxNorm: 415783 TAKE 1 CAPSULE BY JAVON TH ONCE DAILY 06/03/2015 12/29/2015 Inactive Generic For:DETROL LA 4MG C AP N O T I C E PRESCRIPTION PREVIOUSLY AUTHORIZED BY DOCTOR:BOBBY ZULETA atenolol 50 mg tablet RxNorm: 056656 1 Tablet(s) PO daily TAKE 1 TABLET BY MO UTH DAILY 05/07/2015 08/23/2017 Inactive Generic For:TENORMIN 50MG 05/04/2015 9:07:22 AM spironolactone 25 mg tablet RxNorm: 893769 1 Tablet(s) PO daily 05/06/2015 06/07/2016 Inactive venlafaxine ER 75 mg capsule,extended release 24 hr RxNorm: 908919 1 Capsule(s) PO daily 05/04/2015 06/28/2016 Inactive atenolol 50 mg tablet RxNorm: 081101 TAKE 1 TABLET BY MOUTH DAILY 05/04/2015 05/06/2015 Inactive Generic For:TENORMIN 50MG 05/04/2015 9: 07:22 AM Synthroid 150 mcg ta blet RxNorm: 604750 TAKE 1 TABLET BY MOUT H ONCE DAILY. 04/05/2015 09/26/2015 In active Generic For:SYNTHROID 150MCG TAB 2014 4:45:40 PM N O T I C E PRESCRIPTION PREVIOUSLY AUTHORIZED BY DOCTOR:BOBBY ZULETA Effexor 75 mg tablet RxNorm: 205296 1 Tablet(s) PO daily 04/05/2015 07/03/2015 Inactive Coumadin 5 mg tablet RxNorm: 189522 TAKE 1 AND 1/2 TABLETS BY MOUTH ONCE MYRANDA LY 04/04/2015 09/26/2015 In active Generic For:COUMADIN 5MG TAB N O T I C E PRESCRIPTION PREVIOUSLY AUTHORIZED BY DOCTOR:BOBBY ZULETA clonazepam 0.5 mg ta blet RxNorm: 851846 1 Tablet(s) PO BID 03/13/2015 11/05/2015 Inactive sodium bicarbonate 6 50 mg tablet RxNorm: 731234 2 Tablet(s) PO BID 03/08/2015 06/02/2015 Inactive allopurinol 300 mg t ablet RxNorm: 086836 TAKE 1 TABLET BY MOUT H ONCE DAILY. 03/05/2015 09/30/2015 In active N O T I C E PRESCRIPTION PREVIOUSLY A UTHORIZED BY DOCTOR:BOBBY ZULETA Plavix 75 mg tablet RxNorm: 958619 1 Tablet(s) PO daily 02/12/2015 09/09/2015 Inactive clonazepam 0.5 mg ta blet RxNorm: 172598 1 Tablet(s) PO BID 02/11/2015 03/11/2015 Inactive Carafate 1 gram tablet RxNorm: 167473 TAKE 1 TABLET TWICE A DAY FOR 30 DAYS 02/08/2015 02/07/2015 In active Generic For:CARAFATE 1GM 02/08/2015 12:3 6:39 PM Carafate 1 gram tablet RxNorm: 228881 Tablet(s) TAKE 1 TABLET TWICE A DAY FOR 30 DAYS 02/08/2015 09/01/2015 Inactive Generic For:CARAFATE 1GM 02/08/2015 12:3 6:39 PM potassium chloride 2 0 mEq/15 mL oral liquid RxNorm: 405201 30 Milliliter(s) (40m Eq) PO daily 02/05/2015 12/01/2015 Inactive atenolol 50 mg tablet RxNorm: 110720 1 Tablet(s) PO daily 02/04/2015 05/03/2015 Inactive [SAVINGS FOR NON-COVERED DRUGS -- BIN: 232, PCN: ASPROD1, Group: XXXXX, ID# XXXXXXX, Questions: . THIS IS NOT INSURANCE.] potassium chloride 2 0 mEq/15 mL oral liquid RxNorm: 152131 30 Milliliter(s) (40m Eq) PO daily 01/08/2015 02/04/2015 Inactive potassium chloride 2 0 mEq/15 mL oral liquid RxNorm: 248154 30 Milliliter(s) (40m Eq) PO daily 12/07/2014 01/07/2015 Inactive atenolol 50 mg tablet RxNorm: 406538 1 Tablet(s) PO daily 11/09/2014 11/08/2014 Inactive atenolol 50 mg tablet RxNorm: 927518 1 Tablet(s) PO daily 11/09/2014 02/03/2015 Inactive [SAVINGS FOR NON-COVERED DRUGS -- BIN: 422, PCN: ASPROD1, Group: XXXXX, ID# XXXXXXX, Questions: . THIS IS NOT INSURANCE.] Voltaren 1 % topical gel RxNorm: 095959 TOP No St art Date Active verapamil ER (HS) 24 0 mg tablet,extended release 24 hr RxNorm: 323069 1 Tablet(s) PO daily No Start Date Active aspirin 81 mg tablet RxNorm: 833958 1 Tablet(s) PO daily No Start Date Active Zofran 4 mg tablet RxNorm: 470096 1 Tablet(s) PO PRN No Start Date Active B12 1000 mcg RxNorm: 1 Tablet(s) PO daily No Start Date Active magnesium oxide 400 mg capsule RxNorm: 746771 2 Capsule(s) PO BID No Start Date Active Synthroid 150 mcg ta blet RxNorm: 517037 1 Tablet(s) PO daily No Start Date 04/04/2015 Inactive Coumadin 5 mg tablet RxNorm: 864230 1 Tablet(s) PO daily No Start Date 04/03/2015 Inactive cranberry 1,000 mg c apsule RxNorm: 441947 1 Capsule(s) PO daily No Start Date 04/13/2018 Inactive allopurinol 300 mg t ablet RxNorm: 660230 1 Tablet(s) PO daily No Start Date 03/04/2015 Inactive Prilosec 20 mg capsu le,delayed release RxNorm: 981978 1 Capsule(s) PO PRN No Start Date 08/01/2015 Inactive potassium chloride 2 0 mEq/15 mL oral liquid RxNorm: 935226 30 Milliliter(s) (40m Eq) PO daily No Start Date 12/06/2014 Inactive atenolol 50 mg tablet RxNorm: 004355 1 Tablet(s) PO daily No Start Date 08/29/2017 Inactive Lipitor 40 mg tablet RxNorm: 847895 1 Tablet(s) PO daily No Start Date 09/19/2017 Inactive Effexor 75 mg tablet RxNorm: 502723 1 Tablet(s) PO daily No Start Date 04/04/2015 Inactive Carafate 1 gram tablet RxNorm: 655798 1 Tablet(s) PO BID No Start Date 02/07/2015 Inactive clonazepam 0.5 mg ta blet RxNorm: 996550 1 Tablet(s) PO BID No Start Date 02/10/2015 Inactive Plavix 75 mg tablet RxNorm: 927674 1 Tablet(s) PO daily No Start Date 02/11/2015 Inactive sodium bicarbonate 6 50 mg tablet RxNorm: 387674 2 Tablet(s) PO BID No Start Date 09/01/2015 Inactive Lovenox 30 mg/0.3 mL subcutaneous syringe RxNorm: 996321 0.3 Milliliter(s) SQ Q12H No Start Date 03/15/2017 Inactive Fish Oil 1,000 mg ca psule RxNorm: 1 Capsule(s) PO daily No Start Date 01/13/2016 Inactive Detrol LA 4 mg capsu le,extended release RxNorm: 249889 1 Capsule(s) PO daily No Start Date 06/02/2015 Inactive Medication Administered No Medication Administered data Immunizations Vaccine Codes Date Status SHINGARIX CVX: 121 03/23 completed Assessments Condition Codes Effectiv e Dates Hypothyroidism, unspecified ICD-10: E03.9 ICD-9: 244.9 04/14/2018 Essential (primary) hypertension ICD -10: I10 ICD-9: 401.9 04/14/2018 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 ICD-10: Z79.01 [...] Code Item Item Code Result Date Pt [id number] PT 17.4 seconds 06/23/2018 Pt Gpt7622 INR 1.5 06/23/2018 Pt Hkn9723 Low Intensity - 1.5-2.0 06/23/2018 Pt Jgw8417 Mod intensity - 2.0-3.0 06/23/2018 Pt Plx8466 Hi intensity - 3.0-4.0 06/23/2018 Pt Uqv1166 PT 18.4 seconds 06/17/2018 Pt Dpv6966 INR 1.6 06/17/2018 Pt Bck1091 Low Intensity - 1.5-2.0 06/17/2018 Pt Ebl4903 Mod intensity - 2.0-3.0 06/17/2018 Pt Awi8229 Hi intensity - 3.0-4.0 06/17/2018 Sed Rate [...] 30.4 pg 06/08/2018 Cbc With Differential Ord2 [place]% 9.4 % 06/08/2018 Cbc With Differential Ord2 [...] 1.20 K/ul 06/08/2018 Cbc With Differential Ord2 [place] ABS# 0.5 K/ul 06/08/2018 Cbc With Differential Ord2 [place] ABS# 0.1 K/ul 06/08/2018 Cbc With Differential Ord2 Baso ABS# 0.1 K/ul 06/08/2018 C-Reactive Protein Qnt Crqnt CRP 0.1 mg/dl 06/08/2018 Pt Doj4929 PT 17.6 seconds 06/08/2018 Pt Blp2715 INR 1.5 06/08/2018 Pt Vtm2869 Low Intensity - 1.5-2.0 06/08/2018 Pt Hap4476 Mod intensity - 2.0-3.0 06/08/2018 Pt Kyu1875 Hi intensity - 3.0-4.0 06/08/2018 Pt Bip2733 PT 16.8 seconds 05/10/2018 Pt Enw3663 INR 1.4 05/10/2018 Pt Rhb6402 Low Intensity - 1.5-2.0 05/10/2018 Pt Gxp6488 Mod intensity - 2.0-3.0 05/10/2018 Pt Uis5469 Hi intensity - 3.0-4.0 05/10/2018 Pt Rgt6475 PT 16.7 seconds 05/04/2018 Pt Phg0429 INR 1.4 05/04/2018 Pt Bsx4503 Low Intensity - 1.5-2.0 05/04/2018 Pt Foy4187 Mod intensity - 2.0-3.0 05/04/2018 Pt Yfj4700 Hi intensity - 3.0-4.0 05/04/2018 Free T4 Gam549 FREE T4 1.09 ng/dL 04/14/2018 Tsh Ord6 TSH (3rd IS) 2.36 uIU/mL 04/14/2018 Pt Hdk6625 PT 20.3 seconds 04/14/2018 Pt Tfh8497 INR 1.8 04/14/2018 Pt Buz5234 Low Intensity - 1.5-2.0 04/14/2018 Pt Cgm4006 Mod intensity - 2.0-3.0 04/14/2018 Pt Xzd6035 Hi intensity - 3.0-4.0 04/14/2018 Lipid Ord30 CHOL 149 mg/dL 04/14/2018 Lipid Ord30 HDL 49.0 mg/dl 04/14/2018 Lipid Ord30 TRIG 161 mg/dL 04/14/2018 Lipid Ord30 LDL 68 mg/dL 04/14/2018 Lipid Ord30 C/HDL 3.0 Ratio 04/14/2018 %Hba1C Jmc690 % HbA1c 30641-8 5.9 % 04/14/2018 %Hba1C Noi972 Gluc Ave 123 mg/dL 04/14/2018 Comp Metabolic Suo834 NA 140 mEq/L 04/14/2018 Comp Metabolic Hqe645 K 4.1 mEq/L 04/14/2018 Comp Metabolic Nyw837 CL 105 mEq/L 04/14/2018 Comp Metabolic Jyr303 CO2 28.0 mEq/L 04/14/2018 Comp Metabolic Vry865 AN ION GAP 11 04/14/2018 Comp Metabolic Ufy765 GL UCOSE 112 mg/dL 04/14/2018 Comp Metabolic Heo857 Cr eat 1.0 mg/dL 04/14/2018 Comp Metabolic Hio474 eG FR 58 ml/min/1.73m2 04/14 Comp Metabolic Gsn256 BUN 20 mg/dL 04/14/2018 Comp Metabolic Zud874 B/ C Ratio 20.2 Ratio 04/14/2018 Comp Metabolic Vht299 CA LCIUM 10.0 mg/dL 04/14/2018 Comp Metabolic Gpk158 AL K PHOS 51 U/L 04/14/2018 Comp Metabolic Dbp233 T(SGOT) 24 U/L 04/14/2018 Comp Metabolic Pjy598 AL T(SGPT) 21 U/L 04/14/2018 Comp Metabolic Wbb449 BI LI T 0.8 mg/dL 04/14/2018 Comp Metabolic Uzr212 AL BUMIN 4.2 g/dL 04/14/2018 Comp Metabolic Ohf355 TP RO 7.1 g/dL 04/14/2018 Comp Metabolic Bup902 GL OB 2.9 g/dL 04/14/2018 Comp Metabolic Uag881 A/ G Ratio 1.5 Ratio 04/14/2018 Comp Metabolic Kao435 Os mo 283 mOsmo 04/14/2018 Cbc With [...] 30.7 pg 04/14/2018 Cbc With Differential Ord2 [place]% 10.6 % 04/14/2018 Cbc With Differential Ord2 [...] 1.18 K/ul 04/14/2018 Cbc With Differential Ord2 [place] ABS# 0.5 K/ul 04/14/2018 Cbc With Differential Ord2 [place] ABS# 0.2 K/ul 04/14/2018 Cbc With Differential Ord2 Baso ABS# 0.1 K/ul 04/14/2018 Pt Hjr5431 PT 29.3 seconds 02/11/2018 Pt Qwa1906 INR 2.8 02/11/2018 Pt Jkm8034 Low Intensity - 1.5-2.0 02/11/2018 Pt Phf2622 Mod intensity - 2.0-3.0 02/11/2018 Pt Zhk0612 Hi intensity - 3.0-4.0 02/11/2018 Comp Metabolic Pbc007 NA 141 mEq/L 01/05/2018 Comp Metabolic Yko313 K 3.7 mEq/L 01/05/2018 Comp Metabolic Aip680 CL 102 mEq/L 01/05/2018 Comp Metabolic Bvk586 CO2 29.0 mEq/L 01/05/2018 Comp Metabolic Vzz817 AN ION GAP 14 01/05/2018 Comp Metabolic Ybw497 GL UCOSE 136 mg/dL 01/05/2018 Comp Metabolic Ibi256 Cr eat 1.0 mg/dL 01/05/2018 Comp Metabolic Qez232 eG FR 61 ml/min/1.73m2 01/05 Comp Metabolic Qah834 BUN 22 mg/dL 01/05/2018 Comp Metabolic Igq223 B/ C Ratio 22.9 Ratio 01/05/2018 Comp Metabolic Imj506 CA LCIUM 9.7 mg/dL 01/05/2018 Comp Metabolic Knl844 AL K PHOS 57 U/L 01/05/2018 Comp Metabolic Eir477 T(SGOT) 21 U/L 01/05/2018 Comp Metabolic Fyh067 AL T(SGPT) 19 U/L 01/05/2018 Comp Metabolic Kuc617 BI LI T 0.9 mg/dL 01/05/2018 Comp Metabolic Fdg884 AL BUMIN 4.1 g/dL 01/05/2018 Comp Metabolic Qxv343 TP RO 7.1 g/dL 01/05/2018 Comp Metabolic Wws107 GL OB 3.0 g/dL 01/05/2018 Comp Metabolic Fso320 A/ G Ratio 1.4 Ratio 01/05/2018 Comp Metabolic Qwv363 Os mo 287 mOsmo 01/05/2018 Free T4 Ecq760 FREE T4 1.05 ng/dL 01/05/2018 %Hba1C Jge201 % HbA1c 82879-0 6.0 % 01/05/2018 %Hba1C Viz486 Gluc Ave 126 mg/dL 01/05/2018 Cbc With [...] 27.3 % 01/05/2018 Cbc With Differential Ord2 [place]% 10.5 % 01/05/2018 Cbc With Differential Ord2 [...] 1.27 K/ul 01/05/2018 Cbc With Differential Ord2 [place] ABS# 0.5 K/ul 01/05/2018 Cbc With Differential Ord2 Eos ABS# 0.2 K/ul 01/05/2018 Cbc With Differential Ord2 Baso ABS# 0.1 K/ul 01/05/2018 Pt Brg0903 PT 20.7 seconds 01/05/2018 Pt Pec8263 INR 1.8 01/05/2018 Pt Qzb3842 Low Intensity - 1.5-2.0 01/05/2018 Pt Pib1981 Mod intensity - 2.0-3.0 01/05/2018 Pt Oty9459 Hi intensity - 3.0-4.0 01/05/2018 Tsh Ord6 TSH (3rd IS) 2.34 uIU/mL 01/05/2018 Lipid Ord30 CHOL 156 mg/dL 01/05/2018 Lipid Ord30 HDL 48.0 mg/dl 01/05/2018 Lipid Ord30 TRIG 207 mg/dL 01/05/2018 Lipid Ord30 LDL 67 mg/dL 01/05/2018 Lipid Ord30 C/HDL 3.3 Ratio 01/05/2018 Pt Kqu7377 PT 28.3 seconds 11/26/2017 Pt Brp7309 INR 2.6 11/26/2017 Pt New0124 Low Intensity - 1.5-2.0 11/26/2017 Pt Xqr5673 Mod intensity - 2.0-3.0 11/26/2017 Pt Cad8083 Hi intensity - 3.0-4.0 11/26/2017 Pt Qww3974 PT 36.5 seconds 11/19/2017 Pt Wmp9214 INR 3.6 11/19/2017 Pt Lsh0961 Low Intensity - 1.5-2.0 11/19/2017 Pt Twu0514 Mod intensity - 2.0-3.0 11/19/2017 Pt Yic0025 Hi intensity - 3.0-4.0 11/19/2017 Pt Gkk3191 PT 22.9 seconds 10/15/2017 Pt Pfm4965 INR 2.0 10/15/2017 Pt Rwq3877 Low Intensity - 1.5-2.0 10/15/2017 Pt Vnd2482 Mod intensity - 2.0-3.0 10/15/2017 Pt Aae3996 Hi intensity - 3.0-4.0 10/15/2017 Pt Cwu2343 PT 25.9 seconds 10/01/2017 Pt Dyw0676 INR 2.4 10/01/2017 Pt Uyd4993 Low Intensity - 1.5-2.0 10/01/2017 Pt Hma0245 Mod intensity - 2.0-3.0 10/01/2017 Pt Hnt2680 Hi intensity - 3.0-4.0 10/01/2017 Pt Yab3082 PT 20.6 seconds 09/24/2017 Pt Zro3168 INR 1.8 09/24/2017 Pt Jzr2724 Low Intensity - 1.5-2.0 09/24/2017 Pt Ryh8833 Mod intensity - 2.0-3.0 09/24/2017 Pt All0649 Hi intensity - 3.0-4.0 09/24/2017 Pt Llj7940 PT 21.0 seconds 09/15/2017 Pt Mbg5880 INR 1.8 09/15/2017 Pt Thf9446 Low Intensity - 1.5-2.0 09/15/2017 Pt Zap7232 Mod intensity - 2.0-3.0 09/15/2017 Pt Buj8893 Hi intensity - 3.0-4.0 09/15/2017 Pt Fcy3770 PT 19.0 seconds 09/03/2017 Pt Akw7992 INR 1.6 09/03/2017 Pt Ggk6989 Low Intensity - 1.5-2.0 09/03/2017 Pt Bks7664 Mod intensity - 2.0-3.0 09/03/2017 Pt Qgj3682 Hi intensity - 3.0-4.0 09/03/2017 Pt Zlv9175 PT 17.6 seconds 08/23/2017 Pt Gnv1876 INR 1.5 08/23/2017 Pt Jyl3427 Low Intensity - 1.5-2.0 08/23/2017 Pt Mon6408 Mod intensity - 2.0-3.0 08/23/2017 Pt Ppz0755 Hi intensity - 3.0-4.0 08/23/2017 Pt Vmv8134 PT 12.7 seconds 08/20/2017 Pt Znt2256 INR 1.0 08/20/2017 Pt Fne3673 Low Intensity - 1.5-2.0 08/20/2017 Pt Hel4675 Mod intensity - 2.0-3.0 08/20/2017 Pt Xyg1000 Hi intensity - 3.0-4.0 08/20/2017 Pt Omd9668 PT 12.9 seconds 08/17/2017 Pt Ngz4392 INR 1.0 08/17/2017 Pt Okw2211 Low Intensity - 1.5-2.0 08/17/2017 Pt Eae6536 Mod intensity - 2.0-3.0 08/17/2017 Pt Vqk0455 Hi intensity - 3.0-4.0 08/17/2017 Pt Gbe9266 PT 18.5 seconds 08/10/2017 Pt Kyg4664 INR 1.6 08/10/2017 Pt Mni9087 Low Intensity - 1.5-2.0 08/10/2017 Pt Hvf9051 Mod intensity - 2.0-3.0 08/10/2017 Pt Stj7037 Hi intensity - 3.0-4.0 08/10/2017 Tsh Ord6 [...] 14.7 % 05/27/2017 Cbc With Differential Ord2 [place]% 8.1 % 05/27/2017 Cbc With Differential Ord2 [...] 1.11 K/ul 05/27/2017 Cbc With Differential Ord2 [place] ABS# 0.6 K/ul 05/27/2017 Cbc With Differential Ord2 [place] ABS# 0.2 K/ul 05/27/2017 Cbc With Differential Ord2 Baso ABS# 0.1 K/ul 05/27/2017 Pt Wxg4370 PT 28.2 seconds 05/27/2017 Pt Zdi5920 INR 2.6 05/27/2017 Pt Eyo1260 Low Intensity - 1.5-2.0 05/27/2017 Pt Ijt2584 Mod intensity - 2.0-3.0 05/27/2017 Pt Pqk9671 Hi intensity - 3.0-4.0 05/27/2017 Lipid Ord30 CHOL 167 mg/dL 05/27/2017 Lipid Ord30 HDL 49.0 mg/dl 05/27/2017 Lipid Ord30 TRIG 347 mg/dL 05/27/2017 Lipid Ord30 LDL 49 mg/dL 05/27/2017 Lipid Ord30 C/HDL 3.4 Ratio 05/27/2017 Magnesium Ord90 Mag 1.4 mg/dL 05/27/2017 %Hba1C Iwj220 % HbA1c 51273-3 5.9 % 05/27/2017 %Hba1C Rbq770 Gluc Ave 123 mg/dL 05/27/2017 Comp Metabolic Jar641 NA 138 mEq/L 05/27/2017 Comp Metabolic Obf009 K 4.1 mEq/L 05/27/2017 Comp Metabolic Wjr458 CL 101 mEq/L 05/27/2017 Comp Metabolic Aqy495 CO2 31.0 mEq/L 05/27/2017 Comp Metabolic Vxl346 AN ION GAP 10 05/27/2017 Comp Metabolic Luq193 GL UCOSE 117 mg/dL 05/27/2017 Comp Metabolic Gan231 Cr eat 0.9 mg/dL 05/27/2017 Comp Metabolic Ufx981 eG FR 62 ml/min/1.73m2 05/27 Comp Metabolic Arc636 BUN 25 mg/dL 05/27/2017 Comp Metabolic Too478 B/ C Ratio 26.6 Ratio 05/27/2017 Comp Metabolic Osn193 CA LCIUM 9.5 mg/dL 05/27/2017 Comp Metabolic Stj148 AL K PHOS 73 U/L 05/27/2017 Comp Metabolic Qoz583 T(SGOT) 18 U/L 05/27/2017 Comp Metabolic Umz069 AL T(SGPT) 12 U/L 05/27/2017 Comp Metabolic Ojw814 BI LI T 0.5 mg/dL 05/27/2017 Comp Metabolic Gyh984 AL BUMIN 4.1 g/dL 05/27/2017 Comp Metabolic Nxa267 TP RO 7.1 g/dL 05/27/2017 Comp Metabolic Eqr308 GL OB 3.0 g/dL 05/27/2017 Comp Metabolic Det541 A/ G Ratio 1.3 Ratio 05/27/2017 Comp Metabolic Fki275 Os mo 281 mOsmo 05/27/2017 Free T4 Dpp194 FREE T4 0.91 ng/dL 05/27/2017 Pt Dbh7740 PT 29.2 seconds 04/16/2017 Pt Vet8434 INR 2.7 04/16/2017 Pt Tia1665 Low Intensity - 1.5-2.0 04/16/2017 Pt Tlh2561 Mod intensity - 2.0-3.0 04/16/2017 Pt Ytv0234 Hi intensity - 3.0-4.0 04/16/2017 Pt Cbp0045 PT 30.7 seconds 03/31/2017 Pt Lax8825 INR 2.9 03/31/2017 Pt Suy3776 Low Intensity - 1.5-2.0 03/31/2017 Pt Dry0330 Mod intensity - 2.0-3.0 03/31/2017 Pt Gvo3693 Hi intensity - 3.0-4.0 03/31/2017 Pt Oul6861 PT 21.3 seconds 03/26/2017 Pt Frl7609 INR 1.9 03/26/2017 Pt Nnk5940 Low Intensity - 1.5-2.0 03/26/2017 Pt Exa2327 Mod intensity - 2.0-3.0 03/26/2017 Pt Yxn7721 Hi intensity - 3.0-4.0 03/26/2017 Pt Tzz1111 PT 19.8 seconds 03/22/2017 Pt Iec0894 INR 1.7 03/22/2017 Pt Lqy7316 Low Intensity - 1.5-2.0 03/22/2017 Pt Ejt8949 Mod intensity - 2.0-3.0 03/22/2017 Pt Tmt6569 Hi intensity - 3.0-4.0 03/22/2017 Pt Epj4182 PT 15.6 seconds 03/19/2017 Pt Tag6697 INR 1.3 03/19/2017 Pt Vfe2197 Low Intensity - 1.5-2.0 03/19/2017 Pt Mzj0358 Mod intensity - 2.0-3.0 03/19/2017 Pt Hwb8209 Hi intensity - 3.0-4.0 03/19/2017 Pt Fqn7784 PT 13.7 seconds 03/15/2017 Pt Thj1216 INR 1.1 03/15/2017 Pt Fez4191 Low Intensity - 1.5-2.0 03/15/2017 Pt Hdd2277 Mod intensity - 2.0-3.0 03/15/2017 Pt Zzh8829 Hi intensity - 3.0-4.0 03/15/2017 Pt Qlz4789 PT 25.8 seconds 01/28/2017 Pt Owp2567 INR 2.4 01/28/2017 Pt Jin2502 Low Intensity - 1.5-2.0 01/28/2017 Pt Hyz2989 Mod intensity - 2.0-3.0 01/28/2017 Pt Com6499 Hi intensity - 3.0-4.0 01/28/2017 %Hba1C Yyp208 % HbA1c 99843-4 6.4 % 10/23/2016 %Hba1C Uwl535 Gluc Ave 137 mg/dL 10/23/2016 Comp Metabolic Nws328 NA 138 mEq/L 10/23/2016 Comp Metabolic Pbz385 K 3.4 mEq/L 10/23/2016 Comp Metabolic Nvd052 CL 100 mEq/L 10/23/2016 Comp Metabolic Ajr741 CO2 30.0 mEq/L 10/23/2016 Comp Metabolic Hcb719 AN ION GAP 11 10/23/2016 Comp Metabolic Fnw548 GL UCOSE 139 mg/dL 10/23/2016 Comp Metabolic Els615 Cr eat 0.9 mg/dL 10/23/2016 Comp Metabolic Pia785 eG FR 62 ml/min/1.73m2 10/23 Comp Metabolic Uiq250 BUN 22 mg/dL 10/23/2016 Comp Metabolic Ohh097 B/ C Ratio 23.4 Ratio 10/23/2016 Comp Metabolic Tym173 CA LCIUM 8.7 mg/dL 10/23/2016 Comp Metabolic Lcb995 AL K PHOS 66 U/L 10/23/2016 Comp Metabolic Sdx558 T(SGOT) 20 U/L 10/23/2016 Comp Metabolic Hdz630 AL T(SGPT) 10 U/L 10/23/2016 Comp Metabolic Uhu270 BI LI T 0.5 mg/dL 10/23/2016 Comp Metabolic Lyy678 AL BUMIN 3.5 g/dL 10/23/2016 Comp Metabolic Nok391 TP RO 6.3 g/dL 10/23/2016 Comp Metabolic Urx119 GL OB 2.8 g/dL 10/23/2016 Comp Metabolic Wod368 A/ G Ratio 1.3 Ratio 10/23/2016 Comp Metabolic Bdd976 Os mo 281 mOsmo 10/23/2016 Pt Tei4186 PT 26.8 seconds 10/23/2016 Pt Jgh4535 INR 2.7 10/23/2016 Pt Kqo4696 Low Intensity - 1.5-2.0 10/23/2016 Pt Dtr3984 Mod intensity - 2.0-3.0 10/23/2016 Pt Olv1693 Hi intensity - 3.0-4.0 10/23/2016 Pt Ilw3216 PT 28.3 seconds 09/25/2016 Pt Byt8327 INR 2.8 09/25/2016 Pt Bap8480 Low Intensity - 1.5-2.0 09/25/2016 Pt Zec6421 Mod intensity - 2.0-3.0 09/25/2016 Pt Ulq6466 Hi intensity - 3.0-4.0 09/25/2016 Metabolic Ord15 [...] Metabolic Ord15 CALCIUM 8.8 mg/dL 09/25/2016 Pt Clo4186 PT 30.6 seconds 09/11/2016 Pt Tuy7504 INR 3.2 09/11/2016 Pt Pev4001 Low Intensity - 1.5-2.0 09/11/2016 Pt Bbr6386 Mod intensity - 2.0-3.0 09/11/2016 Pt Exo7094 Hi intensity - 3.0-4.0 09/11/2016 Comp Metabolic Ese047 NA 138 mEq/L 09/11/2016 Comp Metabolic Nlb849 K 4.4 mEq/L 09/11/2016 Comp Metabolic Qox023 CL 103 mEq/L 09/11/2016 Comp Metabolic Ikg511 CO2 31.0 mEq/L 09/11/2016 Comp Metabolic Huk432 AN ION GAP 8 09/11/2016 Comp Metabolic Yet595 GL UCOSE 146 mg/dL 09/11/2016 Comp Metabolic Dxk322 Cr eat 1.0 mg/dL 09/11/2016 Comp Metabolic Etp338 eG FR 60 ml/min/1.73m2 09/11 Comp Metabolic Hdl199 BUN 16 mg/dL 09/11/2016 Comp Metabolic Owo392 B/ C Ratio 16.5 Ratio 09/11/2016 Comp Metabolic Nel296 CA LCIUM 8.7 mg/dL 09/11/2016 Comp Metabolic Oel774 AL K PHOS 52 U/L 09/11/2016 Comp Metabolic Tgg486 T(SGOT) 19 U/L 09/11/2016 Comp Metabolic Aqf312 AL T(SGPT) 11 U/L 09/11/2016 Comp Metabolic Vfo167 BI LI T 0.7 mg/dL 09/11/2016 Comp Metabolic Jdv519 AL BUMIN 3.3 g/dL 09/11/2016 Comp Metabolic Nae411 TP RO 5.8 g/dL 09/11/2016 Comp Metabolic Pss050 GL OB 2.5 g/dL 09/11/2016 Comp Metabolic Kiz595 A/ G Ratio 1.3 Ratio 09/11/2016 Comp Metabolic Blc511 Os mo 280 mOsmo 09/11/2016 C-Reactive Protein Qnt Crqnt CRP 0.1 mg/dl 08/21/2016 Comp Metabolic Zcs823 NA 139 mEq/L 08/21/2016 Comp Metabolic Chj457 K 4.1 mEq/L 08/21/2016 Comp Metabolic Rse169 CL 102 mEq/L 08/21/2016 Comp Metabolic Qwd276 CO2 30.0 mEq/L 08/21/2016 Comp Metabolic Nml497 AN ION GAP 11 08/21/2016 Comp Metabolic Zrd983 GL UCOSE 148 mg/dL 08/21/2016 Comp Metabolic Lpj095 Cr eat 1.0 mg/dL 08/21/2016 Comp Metabolic Mws945 eG FR 55 ml/min/1.73m2 08/21 Comp Metabolic Yry164 BUN 21 mg/dL 08/21/2016 Comp Metabolic Sib488 B/ C Ratio 20.2 Ratio 08/21/2016 Comp Metabolic Kkt897 CA LCIUM 9.4 mg/dL 08/21/2016 Comp Metabolic Upp769 AL K PHOS 63 U/L 08/21/2016 Comp Metabolic Mbj221 T(SGOT) 23 U/L 08/21/2016 Comp Metabolic Ljv654 AL T(SGPT) 16 U/L 08/21/2016 Comp Metabolic Kkv196 BI LI T 0.6 mg/dL 08/21/2016 Comp Metabolic Fcc889 AL BUMIN 3.9 g/dL 08/21/2016 Comp Metabolic Yxf924 TP RO 6.8 g/dL 08/21/2016 Comp Metabolic Unq474 GL OB 2.9 g/dL 08/21/2016 Comp Metabolic Ban340 A/ G Ratio 1.4 Ratio 08/21/2016 Comp Metabolic Tnj469 Os mo 283 mOsmo 08/21/2016 Sed Rate Ord21 ESR 16 mm/hr 08/21/2016 Pt Bvo7074 PT 27.2 seconds 08/21/2016 Pt Dlf6864 INR 2.7 08/21/2016 Pt Uyi1251 Low Intensity - 1.5-2.0 08/21/2016 Pt Wks1780 Mod intensity - 2.0-3.0 08/21/2016 Pt Goq3470 Hi intensity - 3.0-4.0 08/21/2016 Magnesium Ord90 Mag 1.9 mg/dL 08/21/2016 Pt Ags5069 PT 25.9 seconds 06/17/2016 Pt Mlc0750 INR 2.5 06/17/2016 Pt Qgc2637 Low Intensity - 1.5-2.0 06/17/2016 Pt Shs2525 Mod intensity - 2.0-3.0 06/17/2016 Pt Ouo2087 Hi intensity - 3.0-4.0 06/17/2016 Tsh Ord6 hTSH II 2.13 uIU/mL 06/08/2016 Free T4 Bsa558 FREE T4 0.79 ng/dL 06/08/2016 Cbc With [...] 80.8 fl 06/08/2016 Cbc With Differential Ord2 [place]% 12.0 % 06/08/2016 Cbc With Differential Ord2 [...] 1.40 K/ul 06/08/2016 Cbc With Differential Ord2 [place] ABS# 0.7 K/ul 06/08/2016 Cbc With Differential Ord2 [place] ABS# 0.3 K/ul 06/08/2016 Cbc With Differential Ord2 Baso ABS# 0.1 K/ul 06/08/2016 %Hba1C Eey999 % HbA1c 32245-7 6.2 % 06/08/2016 %Hba1C Vyx944 Gluc Ave 131 mg/dL 06/08/2016 Comp Metabolic Zqk393 NA 138 mEq/L 06/08/2016 Comp Metabolic Yoa048 K 3.9 mEq/L 06/08/2016 Comp Metabolic Hqa395 CL 105 mEq/L 06/08/2016 Comp Metabolic Oop344 CO2 27.0 mEq/L 06/08/2016 Comp Metabolic Nxc893 AN ION GAP 10 06/08/2016 Comp Metabolic Ovm452 GL UCOSE 127 mg/dL 06/08/2016 Comp Metabolic Mav377 Cr eat 1.0 mg/dL 06/08/2016 Comp Metabolic Lke143 eG FR 59 ml/min/1.73m2 06/08 Comp Metabolic Mmo093 BUN 19 mg/dL 06/08/2016 Comp Metabolic Mpi519 B/ C Ratio 19.4 Ratio 06/08/2016 Comp Metabolic Gnz528 CA LCIUM 9.2 mg/dL 06/08/2016 Comp Metabolic Vzb204 AL K PHOS 77 U/L 06/08/2016 Comp Metabolic Unb500 T(SGOT) 19 U/L 06/08/2016 Comp Metabolic Cbi082 AL T(SGPT) 13 U/L 06/08/2016 Comp Metabolic Ark161 BI LI T 0.5 mg/dL 06/08/2016 Comp Metabolic Lrb873 AL BUMIN 3.8 g/dL 06/08/2016 Comp Metabolic Xpk085 TP RO 6.6 g/dL 06/08/2016 Comp Metabolic Mzk352 GL OB 2.8 g/dL 06/08/2016 Comp Metabolic Ttr641 A/ G Ratio 1.4 Ratio 06/08/2016 Comp Metabolic Hcf681 Os mo 280 mOsmo 06/08/2016 Pt Fmf3022 PT 36.1 seconds 06/08/2016 Pt Grm7241 INR 3.9 06/08/2016 Pt Ugf9422 Low Intensity - 1.5-2.0 06/08/2016 Pt Eph7052 Mod intensity - 2.0-3.0 06/08/2016 Pt Viy8118 Hi intensity - 3.0-4.0 06/08/2016 Lipid Ord30 CHOL 149 mg/dL 06/08/2016 Lipid Ord30 HDL 46.0 mg/dl 06/08/2016 Lipid Ord30 TRIG 279 mg/dL 06/08/2016 Lipid Ord30 LDL 47 mg/dL 06/08/2016 Lipid Ord30 C/HDL 3.2 Ratio 06/08/2016 Pt Ais1454 PT 30.9 seconds 02/12/2016 Pt Knj0958 INR 3.2 02/12/2016 Pt Ggb4520 Low Intensity - 1.5-2.0 02/12/2016 Pt Qet1753 Mod intensity - 2.0-3.0 02/12/2016 Pt Idm0086 Hi intensity - 3.0-4.0 02/12/2016 Free T4 Dyk420 FREE T4 1.24 ng/dL 09/27/2015 %Hba1C Cmc514 % HbA1c 73161-7 6.4 % 09/27/2015 %Hba1C Xrc707 Gluc Ave 137 mg/dL 09/27/2015 Tsh Ord6 hTSH II 0.37 uIU/mL 09/27/2015 Pt Iqp5396 PT 26.2 seconds 09/27/2015 Pt Cgz4227 INR 2.5 09/27/2015 Pt Qtt0572 Low Intensity - 1.5-2.0 09/27/2015 Pt Gyr8747 Mod intensity - 2.0-3.0 09/27/2015 Pt Wks5571 Hi intensity - 3.0-4.0 09/27/2015 Pt Fhe7566 PT 27.6 seconds 2015 Pt Shx1533 INR 2.7 2015 Pt Hod7558 Low Intensity - 1.5-2.0 2015 Pt Lwc7043 Mod intensity - 2.0-3.0 2015 Pt Ttb0309 Hi intensity - 3.0-4.0 2015 %Hba1C Pek548 % HbA1c 38862-8 6.1 % 06/11/2015 %Hba1C Rpt498 Gluc Ave 128 mg/dL 06/11/2015 Cbc With [...] Ord2 RDW 15.8 % 06/10/2015 Comp Metabolic Bhy211 NA 139 mEq/L 06/10/2015 Comp Metabolic Xtq001 K 4.1 mEq/L 06/10/2015 Comp Metabolic Lcx574 CL 105 mEq/L 06/10/2015 Comp Metabolic Eff087 CO2 27.0 mEq/L 06/10/2015 Comp Metabolic Ety210 AN ION GAP 11 06/10/2015 Comp Metabolic Ivh188 GL UCOSE 127 mg/dL 06/10/2015 Comp Metabolic Fqq693 Cr eat 1.0 mg/dL 06/10/2015 Comp Metabolic Oot616 eG FR 59 ml/min/1.73m2 06/10 Comp Metabolic Bxy067 BUN 21 mg/dL 06/10/2015 Comp Metabolic Geu974 B/ C Ratio 21.2 Ratio 06/10/2015 Comp Metabolic Ziv689 CA LCIUM 9.2 mg/dL 06/10/2015 Comp Metabolic Mvl082 AL K PHOS 87 U/L 06/10/2015 Comp Metabolic Ypk608 T(SGOT) 20 U/L 06/10/2015 Comp Metabolic Yuq032 AL T(SGPT) 17 U/L 06/10/2015 Comp Metabolic Ved403 BI LI T 0.4 mg/dL 06/10/2015 Comp Metabolic Zvf538 AL BUMIN 4.1 g/dL 06/10/2015 Comp Metabolic Tuc222 TP RO 7.2 g/dL 06/10/2015 Comp Metabolic Act332 GL OB 3.1 g/dL 06/10/2015 Comp Metabolic Bqv269 A/ G Ratio 1.3 Ratio 06/10/2015 Comp Metabolic Bid204 Os mo 282 mOsmo 06/10/2015 Tsh Ord6 hTSH II 0.86 uIU/mL 06/10/2015 Lipid Ord30 CHOL 161 mg/dL 06/10/2015 Lipid Ord30 HDL 49.0 mg/dl 06/10/2015 Lipid Ord30 TRIG 208 mg/dL 06/10/2015 Lipid Ord30 LDL 70 mg/dL 06/10/2015 Lipid Ord30 C/HDL 3.3 Ratio 06/10/2015 Pt Vnh0890 PT 25.0 seconds 04/09/2015 Pt Zae6207 INR 2.4 04/09/2015 Pt Xbt7995 Low Intensity - 1.5-2.0 04/09/2015 Pt Mtq4555 Mod intensity - 2.0-3.0 04/09/2015 Pt Qxz7853 Hi intensity - 3.0-4.0 04/09/2015 Free T4 Joa341 FREE T4 1.05 ng/dL 01/22/2015 Pt Rsi1246 PT 27.2 seconds 01/22/2015 Pt Lcg6476 INR 2.6 01/22/2015 Pt Fyk2205 Low Intensity - 1.5-2.0 01/22/2015 Pt Dku5207 Mod intensity - 2.0-3.0 01/22/2015 Pt Tcb7538 Hi intensity - 3.0-4.0 01/22/2015 Cbc With [...] Differential Ord2 RDW 15.2 % 01/22/2015 B12 Nzd709 B12 402.00 pg/ml 01/22/2015 Tsh Ord6 hTSH II 0.65 uIU/mL 01/22/2015 Lipid Ord30 CHOL 166 mg/dL 01/22/2015 Lipid Ord30 HDL 48.0 mg/dl 01/22/2015 Lipid Ord30 TRIG 264 mg/dL 01/22/2015 Lipid Ord30 LDL 65 mg/dL 01/22/2015 Lipid Ord30 C/HDL 3.5 Ratio 01/22/2015 Comp Metabolic Hlb934 NA 138 mEq/L 01/22/2015 Comp Metabolic Ynp032 K 4.1 mEq/L 01/22/2015 Comp Metabolic Rtm504 CL 104 mEq/L 01/22/2015 Comp Metabolic Wxq389 CO2 29.0 mEq/L 01/22/2015 Comp Metabolic Fyr759 AN ION GAP 9 01/22/2015 Comp Metabolic Cxp385 GL UCOSE 106 mg/dL 01/22/2015 Comp Metabolic Elz546 Cr eat 0.9 mg/dL 01/22/2015 Comp Metabolic Mwm840 eG FR 63 ml/min/1.73m2 01/22 Comp Metabolic Fqt242 BUN 21 mg/dL 01/22/2015 Comp Metabolic Dja080 B/ C Ratio 22.3 Ratio 01/22/2015 Comp Metabolic Lla727 CA LCIUM 9.4 mg/dL 01/22/2015 Comp Metabolic Mcx831 AL K PHOS 83 U/L 01/22/2015 Comp Metabolic Hnz280 T(SGOT) 23 U/L 01/22/2015 Comp Metabolic Ouh683 AL T(SGPT) 18 U/L 01/22/2015 Comp Metabolic Ooz456 BI LI T 0.8 mg/dL 01/22/2015 Comp Metabolic Knk293 AL BUMIN 4.2 g/dL 01/22/2015 Comp Metabolic Sej031 TP RO 7.3 g/dL 01/22/2015 Comp Metabolic Vaw320 GL OB 3.1 g/dL 01/22/2015 Comp Metabolic Cbm590 A/ G Ratio 1.4 Ratio 01/22/2015 Comp Metabolic Gir962 Os mo 279 mOsmo 01/22/2015 Review of [...] Date URINALYSIS NONAUTO W /O SCOPE CPT-4: 84318 03/05/2017 Vital Signs Date Vital 04/14/2018 Blood Pressure 1: 116/78 Code: 8480-6 BMI: 41.6 Code: 69581-7 Heart Rate 1: 72 bpm Height: 5'1" SpO2: 98% Weight: 220 lbs 01/18/2018 Blood Pressure 1: 132/74 Code: 8480-6 BMI: 43.5 Code: 42474-9 Heart Rate 1: 70 bpm Height: 5'1" SpO2: 97% Weight: 230 lbs 01/04/2018 Blood Pressure 1: 134/76 Code: 8480-6 BMI: 42.7 Code: 83786-9 Heart Rate 1: 83 bpm Height: 5'1" SpO2: 98% Weight: 226 lbs 09/23/2017 Blood Pressure 1: 124/76 Code: 8480-6 BMI: 42.3 Code: 97698-9 Heart Rate 1: 94 bpm Height: 5'1" SpO2: 96% Weight: 224 lbs 05/27/2017 Blood Pressure 1: 146/78 Code: 8480-6 BMI: 41.4 Code: 89432-3 Heart Rate 1: 85 bpm Height: 5'1" SpO2: 98% Weight: 219 lbs 02/24/2017 Blood Pressure 1: 138/66 Code: 8480-6 BMI: 41.4 Code: 73048-1 Heart Rate 1: 78 bpm Height: 5'1" SpO2: 97% Weight: 219 lbs 11/02/2016 Blood Pressure 1: 144/72 Code: 8480-6 BMI: 46.1 Code: 12669-8 Heart Rate 1: 78 bpm Height: 5'1" SpO2: 98% Weight: 244 lbs 09/30/2016 Blood Pressure 1: 130/76 Code: 8480-6 BMI: 45.0 Code: 72835-4 Heart Rate 1: 86 bpm Height: 5'1" SpO2: 98% Weight: 238 lbs 09/10/2016 Blood Pressure 1: 136/68 Code: 8480-6 BMI: 46.3 Code: 87023-6 Heart Rate 1: 83 bpm Height: 5'1" SpO2: 98% Weight: 245 lbs 08/20/2016 Blood Pressure 1: 142/78 Code: 8480-6 BMI: 45.3 Code: 58725-8 Heart Rate 1: 84 bpm Height: 5'1" SpO2: 99% Weight: 240 lbs 06/08/2016 Blood Pressure 1: 134/76 Code: 8480-6 BMI: 44.2 Code: 66889-4 Heart Rate 1: 86 bpm Height: 5'1" SpO2: 96% Weight: 234 lbs 04/02/2016 Blood Pressure 1: 142/70 Code: 8480-6 BMI: 44.6 Code: 72156-7 Heart Rate 1: 78 bpm Height: 5'1" SpO2: 97% Weight: 236 lbs 01/14/2016 Blood Pressure 1: 146/72 Code: 8480-6 BMI: 44.2 Code: 70101-6 Heart Rate 1: 86 bpm Height: 5'1" SpO2: 96% Weight: 234 lbs 10/02/2015 Blood Pressure 1: 158/76 Code: 8480-6 BMI: 44.2 Code: 80418-5 Heart Rate 1: 67 bpm Height: 5'1" SpO2: 97% Weight: 234 lbs 07/15/2015 Blood Pressure 1: 148/78 Code: 8480-6 Blood Pressure 1: 200/90 Code: 8480-6 BMI: 44.0 Code: 96809-4 Heart Rate 1: 89 bpm Height: 5'1" SpO2: 97% Weight: 233 lbs 06/10/2015 Blood Pressure 1: 140/82 Code: 8480-6 BMI: 44.0 Code: 10571-0 Heart Rate 1: 78 bpm Height: 5'1" [...] Encounters Encounter Performer Loca tion Codes Date ([id number]) [id number] EST. 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 P ATIENT, LEVEL III Diagnosis: Localized edema[ICD10: R60.0] Diagnosis: Gastro-esophageal reflux disease without esophagitis[ICD10: K21.9] Edna Almanza MD, [facility] CPT-4: 10429 01/18/2018 ([id number]) [id number] EST. P ATIENT, LEVEL IV Diagnosis: Gastro-esophageal reflux disease without esophagitis[ICD10: K21.9] Diagnosis: Localized edema[ICD10: R60.0] Diagnosis: Essential (primary) hypertension[ICD10: I10] Diagnosis: Hypothyroidism, unspecified[ICD10: E03.9] Diagnosis: Impaired fasting glucose[ICD10: R73.01] Edna Almanza MD, [facility] CPT-4: 96243 01/04/2018 ([id number]) [id number] EST. 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 P ATIENT, LEVEL IV Diagnosis: Essential (primary) hypertension[ICD10: I10] Diagnosis: Mixed hyperlipidemia[ICD10: E78.2] Diagnosis: Hypothyroidism, unspecified[ICD10: E03.9] Diagnosis: Impaired fasting glucose[ICD10: R73.01] Diagnosis: nursing home (current) use of anticoagulants[ICD10: Z79.01] Edna Almanza MD, [facility] CPT-4: 38394 05/27/2017 64763 EST. PATIENT, LEVEL III Diagnosis: Pain in right hip[ICD10: M25.551] Nata Almanza MD, [facility] CPT-4: 34359 02/24/2017 ([id number]) 72355 EST. P ATIENT, LEVEL IV Diagnosis: Essential (primary) hypertension[ICD10: I10] Diagnosis: Localized edema[ICD10: R60.0] Diagnosis: Pain in right hip[ICD10: M25.551] Sarai Almanza MD, [facility] CPT-4: 73780 11/02/2016 ([id number]) 05047 EST. P ATIENT, LEVEL IV Diagnosis: Essential (primary) hypertension[ICD10: I10] Diagnosis: Localized edema[ICD10: R60.0] Sarai Almanza MD, [facility] CPT-4: 58447 09/30/2016 71481 EST. PATIENT, LEVEL IV Diagnosis: Localized edema[ICD10: R60.0] Diagnosis: Pain in joints of left hand[ICD10: M25.542] Diagnosis: Pain in joints of right hand[ICD10: M25.541] Nata Almanza MD, [facility] CPT-4: 88674 09/10/2016 64459 EST. PATIENT, LEVEL IV Diagnosis: Localized edema[ICD10: R60.0] Diagnosis: Pain in joints of left hand[ICD10: M25.542] Diagnosis: Pain in joints of right hand[ICD10: M25.541] Diagnosis: Other fatigue[ICD10: R53.83] Nata Almanza MD, [facility] CPT-4: 05874 08/20/2016 57374 EST. 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 PATIENT, LEVEL IV Diagnosis: Other allergic rhinitis[ICD10: J30.89] Diagnosis: Acute laryngopharyngitis[ICD10: J06.0] Naat Almanza MD, [facility] CPT-4: 44823 04/02/2016 00966 EST. PATIENT, LEVEL IV Diagnosis: Left upper quadrant pain[ICD10: R10.12] [facility] CPT-4: 68047 01/14/2016 92910 EST. PATIENT, LEVEL IV Diagnosis: Pain in left shoulder[ICD10: M25.512] Diagnosis: Body mass index (BMI) 40.0-44.9, adult[ICD10: Z68.41] [facility] CPT-4: 79326 10/02/2015 12041 EST. 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[ICD10: Z79.899] [facility] CPT-4: 74308 06/10/2015 ([id number]) OFFICE DINESH MESSINA - LEVEL 4 Diagnosis: ESSENTIAL HYPERTENSION[ICD9: 401.9] Diagnosis: HYPOTHYROIDISM[ICD9: 244.9] Diagnosis: ENCNTR LONG-RX USE NEC[ICD9: V58.69] Diagnosis: HYPERLIPIDEMIA[ICD9: 272.4] Diagnosis: Vitamin B12 deficiency[ICD9: 266.2] Diagnosis: Status post gastric surgery[ICD9: V45.89] Diagnosis: Snoring[ICD9: 786.09] [facility] CPT-4: 89677 01/22/2015 Plan of Care Planned Activity Notes [...] Hgb A1C 04/14/2018 Appointment: Edna Douglas WPtel: [phone] [phone] (15 min) Moderate 04/14/2018 Patient Education: Patient [...] to further attempt to reduce peripheral edema. NOKG-bopovpri-jjplehat prilosec BID and carafate QID -discussed low spice, low acidic diet 01/18/2018 Appointment: Edna Douglas WPtel: [phone] [phone] (15 min) Moderate 01/18/2018 Patient Education: Patient [...] control. 01/04/2018 [phone] ([facility] min) Complex 01/04/2018 Patient Education: Patient Medication Summary Completed 01/04/2018 Care Plan: SCREENINGMAMMOGRAPHYDIGITAL LOINC : 21707-3 Pending 01/04/2018 Visit Plan: Abdominal hernia - not able to be taken to surgery by local providers and pt has been seen at [facility] and that surgeon felt like [place] would be better served by Dr. Betancur [...] home. 09/23/2017 Appointment: [phone] [place] (15 min) Moderate 09/23/2017 Patient Education: [...] medications. 05/27/2017 App[facility]ment: [phone] (30 min) Complex 05/27/2017 Patient Education: [...] [place]. 02/24/2017 Appointment: [facility] H[phone] (30 min) Complex 02/24/2017 Patient Education: [...] dr. Chaney. 11/02/2016 Appointment: Sarai Almanza WPtel: [facility] (15 min) Moderate 11/02/2016 Patient Education: [...] Sarai Almanza WPtel: [facility] (15 min) Moderate 09/30/2016 Patient Education: [...] peripheral edema. 09/10/2016 Appointment: Nata Hsu WPtel: [phone] (30 min) Complex 09/10/2016 Patient Education: [...] peripheral edema. 08/20/2016 Appointment: Nata Hsu WPtel: [facility] [address] (30 min) Complex 08/20/2016 Patient Education: Patient Medication Summary Completed 08/20/2016 Referral: Otf Lee [address] Referral Initiated 07/02/2016 Visit Plan: Chronic [...] 06/08/2016 Care Plan: Referral Order SNOMED-CT : [id number] Pending 06/08/2016 Visit Plan: URI - Pt [...] the nasal steroid allergy spray. 04/02/2016 Appointment: Shadi Nata WPtel[facility] ([facility] min) Complex 04/02/2016 Patient [...] Appointment: Edna Douglas WPtel: [phone] (30 min) Complex 01/14/2016 Patient Education: Patient Medication Summary Completed 01/14/2016 Patient Education: Obesity Completed 01/14/2016 Care Plan: BMI Above normal followup DAVID F-MGMT EDUC & TRAIN 1 PT Pending 10/24/2015 Care Plan: X-RAY EXAM OF SHOULDER LOINC : 63323-3 Pending 10/24/2015 Visit Plan: Left shoulder pain [...] Edna Douglas WPtel: [phone] [place] (15 min) Moderate 10/02/2015 Patient Education: [...] Sarai Almanza WPtel[facility] (15 min) Moderate 04/22/2015 Visit [...] have surgical fixation - planning occurring at [facility]. Snoring - Sleep apnea symptoms with [...] to medications. 01/22/2015 Appointment: Sarai Almanza WPtel: [address] [place], [place] [phone] [place] ([place]) New Patient 01/22/2015 Patient Education: Patient Medication Summary Completed 01/22/2015 Patient Education: Hypertension Completed 01/22/2015 Referral: Otf Lee [facility] Referral Initiated Instructions Comment . Chronic Anticoagul [...] providers and pt has been seen at [facility] and that surgeon felt like [place] would be better served by Dr. Betancur at [facility]. I have recommended a referral to dr. [...] to further attempt to reduce peripheral edema. XFVJ-cnmgmzsw-rnkjyqfc prilosec BID and carafate QID -discussed low [...] Elevated blood sugars-check Hgb A1C dr willis sah the staff get you scheduled for [...] have surgical fixation - planning occurring at [facility]. Snoring - Sleep apnea symptoms with [...]
--- OUTSIDE RECORDS SUMMARY | 2020-01-16 23:43 | XMS REPORT | CCD ---
Author Author Kat Almanza Organization Sarai Almanza MD, [facility] Address [address] [place] [address] Phone Care Team Providers Care Loss Prevention Consultant Name Role Phone PP Unavailable CCM Unavailable Summary Purpose Interface Exchange Insurance Providers Payer name Policy type / Coverage type Covered republican ID Effective Begin Date Effective End Date WPS Medicare Part B Medicare Part B [id number] 2017 Unknown [employer] [place] Medicare Part B [id number] 2017 Unknown Family history Father Diagnosis Age At Onset Hyperlipidemia Unknown Heart Attack Unknown Mother Diagnosis Age At Onset Arthritis Unknown Social History Social History Element Codes Description Effective Dates Marital status Unknown M arried Nathan 09/30/2016 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 Number of children Unknown 3 01/22/[address]: 948114204 Never smoker 01/22/[address]: 904586420 Never drinks alcohol 01/22/2015 Allergies, Adverse Reactions, [...] ICD-9: 790.21 ICD-10: R73.01 Active 05/27/2017 Unknown prison (current) use of anticoagulants ICD-9: V58.61 ICD-10: [...] 780.79 ICD-10: R53.83 Active 08/20/2016 Unknown 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 ICD-9: V58.69 ICD-10: [...] cose ICD-9: 790.21 ICD-10: R73.01 05/27/2017 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 ICD-9: V58.61 [...] ICD-9: 780.79 ICD-10: R53.83 08/20/2016 Active 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 ICD-9: V58.69 ICD-10: [...] 75 mg capsule,extended release 24 hr RxNorm: 560188 Capsule(s) TAKE 1 CAPSULE BY MOUTH ONCE DAILY 06/23/2018 06/17/2019 Active Generic For:*EFFEXOR XR 75MG 06/19/2017 12:23:45 PM sodium bicarbonate 6 50 mg tablet RxNorm: 412363 Tablet(s) TAKE 2 TABL ETS BY MOUTH TWICE DAILY 06/23/2018 12/19/2018 Active 12/20/2017 9:10:59 AM Coumadin 1 mg tablet RxNorm: 891831 1 Tablet(s) PO daily 06/17/2018 07/16/2018 Active Coumadin 1 mg tablet RxNorm: 170481 1 Tablet(s) PO daily 06/17/2018 06/16/2018 Inactive clonazepam 0.5 mg ta blet RxNorm: 489466 1 Tablet(s) PO BID 06/08/2018 11/04/2018 Active Carafate 1 gram tablet RxNorm: 298705 TAKE ONE TABLET BY MOUTH BEFORE MEALS AN D AT BEDTIME 05/18/2018 07/12/2018 Active Generic For:CARAFATE 1GM 8:38:28 AM Synthroid 137 mcg ta blet RxNorm: 283155 TAKE 1 TABLET BY MOUT H ONCE DAILY 05/18/2018 11/13/2018 Ac tive Generic For:SYNTHROID 137MCG TAB 2017 8:57:54 AM spironolactone 25 mg tablet RxNorm: 411507 TAKE 1 TABLET BY MOUT H EVERY DAY 05/18/2018 05/12/2019 Ac tive Generic For:*ALDACTONE 25MG 05/18/2018 8:57:50 AM allopurinol 300 mg t ablet RxNorm: 592764 TAKE 1 TABLET BY MOUT H ONCE DAILY. 04/18/2018 10/14/2018 Ac tive Generic For:ZYLOPRIM 300 MG TABLET 03/22 9:13:47 AM Lasix 20 mg tablet RxNorm: 884696 TAKE ONE TABLET BY MOUTH DAILY 04/18/2018 08/15/2018 Ac tive Generic For:LASIX 20MG 04/18/2018 9:13: 50 AM Carafate 1 gram tablet RxNorm: 417591 TAKE ONE TABLET BY MOUTH BEFORE MEALS AN D AT BEDTIME 04/18/2018 05/17/2018 Inactive Generic For:CARAFATE 1GM 1 9:32:51 AM Coumadin 5 mg tablet RxNorm: 126347 TAKE 1 TABLET BY MOUTH DIRECTED 03/21/2018 09/16/2018 Ac tive Generic For:COUMADIN 5MG TAB 03/21/2018 9:13:00 AM Carafate 1 gram tablet RxNorm: 030381 TAKE ONE TABLET BY MOUTH BEFORE MEALS AN D AT BEDTIME 03/21/2018 04/17/2018 Inactive Generic For:CARAFATE 1GM 1 9:14:24 AM Carafate 1 gram tablet RxNorm: 458937 1 Tablet(s) PO AC & HS 02/17/2018 03/20/2018 Inactive atenolol 100 mg tablet RxNorm: 115291 1 Tablet(s) PO daily 02/04/2018 09/01/2018 Active atenolol 50 mg tablet RxNorm: 050668 1 Tablet(s) PO daily 02/03/2018 02/03/2018 Inactive omeprazole 20 mg cap sean,delayed release RxNorm: 662682 1 Capsule(s) BID 01/21/2018 01/15/2019 Ac tive Generic For:PRILOSEC 20MG 07/22/2017 8:5 8:20 AM Carafate 1 gram tablet RxNorm: 717379 1 Tablet(s) PO AC & HS 01/21/2018 02/16/2018 Inactive Carafate 1 gram tablet RxNorm: 579990 1 Tablet(s) PO AC & HS 01/18/2018 01/20/2018 Inactive Carafate 1 gram tablet RxNorm: 396551 1 Tablet(s) PO AC & HS 01/18/2018 02/27/2018 Inactive Carafate 1 gram tablet RxNorm: 309485 1 Tablet(s) PO AC & HS TAKE ONE TABLET B Y MOUTH TWICE DAILY 01/18/2018 05/17/2018 Inactive Generic For:CARAFATE 1GM 0 12/20/2017 9:10:56 AM omeprazole 20 mg cap sean,delayed release RxNorm: 564945 Capsule(s) TAKE 1 CAP SEAN BY MOUTH EVERY DAY 01/17/2018 01/20/2018 Inactive Generic For:PRILOSEC 20MG 0 07/22/2017 8:58:20 AM omeprazole 20 mg cap sean,delayed release RxNorm: 980092 Capsule(s) TAKE 1 CAP SEAN BY MOUTH EVERY DAY 01/14/2018 01/16/2018 Inactive Generic For:PRILOSEC 20MG 07/22/2017 8:58:20 AM Plavix 75 mg tablet RxNorm: 688343 1 Tablet(s) PO daily 01/07/2018 07/05/2018 Active clonazepam 0.5 mg ta blet RxNorm: 127590 1 Tablet(s) PO BID 01/07/2018 06/05/2018 Inactive Carafate 1 gram tablet RxNorm: 847563 1 Tablet(s) PO AC & HS 01/04/2018 01/17/2018 Inactive Lasix 20 mg tablet RxNorm: 797114 TAKE ONE TABLET BY MOUTH DAILY 12/20/2017 04/17/2018 In active Generic For:LASIX 20MG 12/20/2017 9:11: 03 AM sodium bicarbonate 6 50 mg tablet RxNorm: 245460 TAKE 2 TABLETS BY JAVON TH TWICE DAILY 12/20/2017 06/17/2018 In active 12/20/2017 9:10:59 AM Carafate 1 gram tablet RxNorm: 314113 TAKE ONE TABLET BY MOUTH TWICE DAILY 12/20/2017 01/17/2018 In active Generic For:CARAFATE 1GM 12/20/2017 9:1 0:56 AM Synthroid 137 mcg ta blet RxNorm: 792473 TAKE 1 TABLET BY MOUT H ONCE DAILY 11/19/2017 05/17/2018 In active Generic For:SYNTHROID 137MCG TAB 2017 8:58:04 AM Detrol LA 4 mg capsu le,extended release RxNorm: 069566 TAKE 1 CAPSULE BY JAVON TH ONCE DAILY 10/20/2017 04/13/2018 Inactive Generic For:DETROL LA 4MG C AP 10/20/2017 9:01:56 AM allopurinol 300 mg t ablet RxNorm: 952254 TAKE 1 TABLET BY MOUT H ONCE DAILY. 10/20/2017 04/17/2018 In active Generic For:ZYLOPRIM 300 MG TABLET 07/2017 9:01:59 AM Coumadin 5 mg tablet RxNorm: 243642 1 Tablet(s) PO UD 10/01/2017 03/20/2018 Inactive cyclobenzaprine 5 mg tablet RxNorm: 837121 1 Tablet(s) PO TID as needed myscle spasm 09/23/2017 10/12/2017 Inactive Lipitor 40 mg tablet RxNorm: 961037 TAKE 1 TABLET BY MOUTH ONCE DAILY 09/20/2017 09/14/2018 Ac tive Generic For:LIPITOR 40MG 09/20/2017 8:5 6:04 AM atenolol 100 mg tablet RxNorm: 459613 1 Tablet(s) PO daily 08/30/2017 02/03/2018 Inactive atenolol 50 mg tablet RxNorm: 184533 1 Tablet(s) PO daily 08/30/2017 08/30/2017 Inactive Lovenox 30 mg/0.3 mL subcutaneous syringe RxNorm: 674606 0.3 Milliliter(s) SQ Q12H 08/24/2017 09/06/2017 In active Lasix 20 mg tablet RxNorm: 425888 TAKE ONE TABLET BY MOUTH DAILY 08/23/2017 12/19/2017 In active Generic For:LASIX 20MG 08/21/2017 9:04: 27 AM Synthroid 137 mcg ta blet RxNorm: 293661 TAKE 1 TABLET BY MOUT H ONCE DAILY 08/23/2017 11/18/2017 In active Generic For:SYNTHROID 137MCG TAB 2017 9:04:30 AM Lovenox 30 mg/0.3 mL subcutaneous syringe RxNorm: 626866 0.3 Milliliter(s) SQ Q12H 08/10/2017 08/23/2017 In active clonazepam 0.5 mg ta blet RxNorm: 513077 1 Tablet(s) PO BID 08/04/2017 12/30/2017 Inactive Coumadin 4 mg tablet RxNorm: 588036 TAKE 1 TABLET BY MOUTH THREE TIMES PER W [place] (WEDNESDAY, WEDNESDAY AND WEDNESDAY) 07/22/2017 02/16/2018 Inactive Generic For:COUMADIN 4MG 07/22/2017 8:58:26 AM Coumadin 4 mg tablet RxNorm: 649750 TAKE 1 TABLET BY MOUTH THREE TIMES PER [place] (WEDNESDAY, WEDNESDAY AND WEDNESDAY) 07/22/2017 02/16/2018 Inactive Generic For:COUMADIN 4MG 07/22/2017 8:58:26 AM omeprazole 20 mg cap sean,delayed release RxNorm: 949524 TAKE 1 CAPSULE BY JAVON TH EVERY DAY 07/22/2017 01/13/2018 Inactive Generic For:PRILOSEC 20MG 07/22/2017 8: 58:20 AM sodium bicarbonate 6 50 mg tablet RxNorm: 090494 TAKE 2 TABLETS BY JAVON TH TWICE DAILY 06/22/2017 12/18/2017 In active 06/19/2017 12:23:30 PM venlafaxine ER 75 mg capsule,extended release 24 hr RxNorm: 890945 TAKE 1 CAPSULE BY MOUTH ONCE DAILY 06/22/2017 06/16/2018 Inactive Generic For:*EFFEXOR XR 75M G 06/19/2017 12:23:45 PM Coumadin 5 mg tablet RxNorm: 254433 1 Tablet(s) PO UD 06/01/2017 09/30/2017 Inactive Keflex 500 mg capsule RxNorm: 385983 1 Capsule(s) PO TID 05/27/2017 06/02/2017 Inactive Synthroid 137 mcg ta blet RxNorm: 148940 TAKE 1 TABLET BY MOUT H ONCE DAILY 05/24/2017 08/21/2017 In active Generic For:SYNTHROID 137MCG TAB 2016 8:55:59 AM Carafate 1 gram tablet RxNorm: 268744 TAKE ONE TABLET BY MOUTH TWICE DAILY 05/24/2017 12/19/2017 In active Generic For:CARAFATE 1GM 05/24/2017 8:5 5:54 AM spironolactone 25 mg tablet RxNorm: 653060 1 Tablet(s) PO daily 05/24/2017 05/17/2018 Inactive Detrol LA 4 mg capsu le,extended release RxNorm: 325730 1 Capsule(s) PO daily TAKE 1 CAPSULE BY MOUTH ONCE DAILY 05/10/2017 10/19/2017 Inactive Generic For:DETROL LA 4MG CAP 02/19/2017 2:36:00 PM Lasix 20 mg tablet RxNorm: 792086 TAKE ONE TABLET BY MOUTH DAILY 04/23/2017 08/20/2017 In active Generic For:LASIX 20MG 04/23/2017 9:04: 01 AM Coumadin 4 mg tablet RxNorm: 941625 TAKE 1 TABLET BY MOUTH THREE TIMES PER [place] (WEDNESDAY, WEDNESDAY AND WEDNESDAY) 04/23/2017 07/21/2017 Inactive Generic For:COUMADIN 4MG 04/23/2017 9:04:05 AM allopurinol 300 mg t ablet RxNorm: 034508 TAKE 1 TABLET BY MOUT H ONCE DAILY. 04/23/2017 10/19/2017 In active Generic For:ZYLOPRIM 300 MG TABLET 08/2016 9:03:57 AM potassium chloride 2 0 mEq/15 mL oral liquid RxNorm: 732517 Milliliter(s) 30 Milliliter(s) (40mEq) PO daily 03/24/2017 07/21/2017 Inactive Lovenox 30 mg/0.3 mL subcutaneous syringe RxNorm: 369107 0.3 Milliliter(s) SQ Q12H 03/22/2017 03/26/2017 In active Lovenox 30 mg/0.3 mL subcutaneous syringe RxNorm: 811501 0.3 Milliliter(s) SQ Q12H 03/19/2017 03/20/2017 In active Lovenox 30 mg/0.3 mL subcutaneous syringe RxNorm: 309565 0.3 Milliliter(s) SQ Q12H 03/16/2017 03/18/2017 In active clonazepam 0.5 mg ta blet RxNorm: 619667 1 Tablet(s) PO BID 03/02/2017 07/28/2017 Inactive Lovenox 30 mg/0.3 mL subcutaneous syringe RxNorm: 540435 1 injection SQ BID do NOT take the night time dose the day before surgery, or the morning dose the day of surgery 03/01/2017 03/07/2017 Inactive Lovenox 30 mg/0.3 mL subcutaneous syringe RxNorm: 133773 1 injection SQ BID 03/01/2017 02/28/2017 In active Detrol LA 4 mg capsu le,extended release RxNorm: 043825 TAKE 1 CAPSULE BY JAVON TH ONCE DAILY 02/19/2017 05/09/2017 Inactive Generic For:DETROL LA 4MG C AP 02/19/2017 2:36:00 PM hydrocodone 5 mg-humberto taminophen 325 mg tablet RxNorm: 669958 1-2 Tablet(s) PO Q6 P RN 02/04/2017 No Stop Date Active Zetia 10 mg tablet RxNorm: 768268 TAKE 1 TABLET BY MOUTH DAILY 01/25/2017 04/13/2018 Inactive 01/23/2017 9:03:48 AM omeprazole 20 mg cap sean,delayed release RxNorm: 539567 TAKE 1 CAPSULE BY JAVON TH EVERY DAY 01/25/2017 07/21/2017 Inactive Generic For:PRILOSEC 20MG 01/23/2017 9: 03:45 AM Coumadin 4 mg tablet RxNorm: 518837 TAKE 1 TABLET BY MOUTH THREE TIMES PER [place] (WEDNESDAY, WEDNESDAY AND WEDNESDAY) 01/25/2017 04/22/2017 Inactive Generic For:COUMADIN 4MG 01/23/2017 9:03:51 AM sodium bicarbonate 6 50 mg tablet RxNorm: 786389 TAKE 2 TABLETS BY JAVON TH TWICE DAILY 12/24/2016 06/21/2017 In active 12/24/2016 9:09:27 AM Lasix 20 mg tablet RxNorm: 141718 1 Tablet(s) PO daily 12/24/2016 04/22/2017 Inactive Synthroid 137 mcg ta blet RxNorm: 674967 TAKE 1 TABLET BY MOUT H ONCE DAILY 11/24/2016 05/22/2017 In active Generic For:SYNTHROID 137MCG TAB 2016 9:04:37 AM Coumadin 4 mg tablet RxNorm: 890853 TAKE 1 TABLET BY MOUTH THREE TIMES PER [place] (WEDNESDAY, WEDNESDAY AND WEDNESDAY) 11/24/2016 01/22/2017 Inactive Generic For:COUMADIN 4MG 11/24/2016 9:04:41 AM hydrocodone 5 mg-humberto taminophen 325 mg tablet RxNorm: 480490 1-2 Tablet(s) PO Q6 P RN 11/17/2016 02/03/2017 In active Carafate 1 gram tablet RxNorm: 044270 TAKE ONE TABLET BY MOUTH TWICE DAILY 10/27/2016 05/23/2017 In active Generic For:CARAFATE 1GM 10/26/2016 8:3 9:42 AM allopurinol 300 mg t ablet RxNorm: 695133 Tablet(s) TAKE 1 TABL ET BY MOUTH ONCE DAILY. 10/26/2016 04/22/2017 Inactive Lipitor 40 mg tablet RxNorm: 056137 1 Tablet(s) PO daily 09/25/2016 09/19/2017 Inactive Coumadin 4 mg tablet RxNorm: 851596 TAKE 1 TABLET BY MOUTH THREE TIMES PER [place] (WEDNESDAY, WEDNESDAY AND WEDNESDAY) 09/25/2016 11/23/2016 Inactive Generic For:COUMADIN 4MG 09/25/2016 8:55:58 AM Zetia 10 mg tablet RxNorm: 097886 1 Tablet(s) PO daily 09/25/2016 01/22/2017 Inactive gave 1 month of samples clonazepam 0.5 mg ta blet RxNorm: 504453 1 Tablet(s) PO BID 09/21/2016 02/16/2017 Inactive Lasix 20 mg tablet RxNorm: 467986 1 Tablet(s) PO daily 09/15/2016 12/23/2016 Inactive potassium chloride 2 0 mEq/15 mL oral liquid RxNorm: 121733 Milliliter(s) 30 Milliliter(s) (40mEq) PO daily 09/15/2016 01/12/2017 Inactive Lasix 20 mg tablet RxNorm: 594527 2 Tablet(s) PO daily 09/10/2016 09/12/2016 Inactive Lasix 20 mg tablet RxNorm: 023604 1 Tablet(s) PO daily 08/28/2016 08/30/2016 Inactive Lasix 20 mg tablet RxNorm: 739760 1 Tablet(s) PO daily 08/20/2016 08/22/2016 Inactive Detrol LA 4 mg capsu le,extended release RxNorm: 236281 TAKE 1 CAPSULE BY JAVON TH ONCE DAILY 07/27/2016 02/18/2017 Inactive Generic For:DETROL LA 4MG C AP 07/27/2016 9:08:27 AM Coumadin 4 mg tablet RxNorm: 828909 1 Tablet(s) PO 3 x week tue thur and sun 07/27/2016 09/24/2016 In active omeprazole 20 mg cap sean,delayed release RxNorm: 092129 Capsule(s) PO TAKE 1 CAPSULE BY MOUTH ONCE DAILY 07/27/2016 01/22/2017 Inactive venlafaxine ER 75 mg capsule,extended release 24 hr RxNorm: 586281 1 Capsule(s) PO daily 06/29/2016 06/21/2017 Inactive sodium bicarbonate 6 50 mg tablet RxNorm: 237283 TAKE 2 TABLETS BY JAVON TWICE DAILY 06/29/2016 12/23/2016 In active 06/27/2016 9:05:39 AM Coumadin 4 mg tablet RxNorm: 696100 1 Tablet(s) PO 3 x week tue thur and sun 06/09/2016 06/08/2016 In active Coumadin 4 mg tablet RxNorm: 605272 1 Tablet(s) PO 3 x week tue thur and sun 06/09/2016 07/26/2016 In active Zetia 10 mg tablet RxNorm: 827266 1 Tablet(s) PO daily 06/09/2016 06/08/2016 Inactive gave 1 month of samples Zetia 10 mg tablet RxNorm: 372212 1 Tablet(s) PO daily 06/09/2016 09/24/2016 Inactive gave 1 month of samples Effexor 75 mg tablet RxNorm: 770577 1 Tablet(s) PO daily 06/08/2016 06/28/2016 Inactive spironolactone 25 mg tablet RxNorm: 878244 1 Tablet(s) PO daily 06/08/2016 05/23/2017 Inactive Synthroid 137 mcg ta blet RxNorm: 963060 1 Tablet(s) PO daily 05/07/2016 11/02/2016 Inactive allopurinol 300 mg t ablet RxNorm: 607949 Tablet(s) TAKE 1 TABL ET BY MOUTH ONCE DAILY. 04/28/2016 10/24/2016 Inactive clonazepam 0.5 mg ta blet RxNorm: 254283 1 Tablet(s) PO BID 04/20/2016 09/15/2016 Inactive Flonase Allergy Reli ef 50 mcg/actuation nasal spray,suspension RxNorm: 2427729 1 [place] NASAL BID 04/02/2016 No Stop Date Active Zithromax Z-Thomas 250 mg tablet RxNorm: 437415 Tablet(s) PO 04/02/2016 08/27/2016 Inactive cetirizine 10 mg tablet RxNorm: 0142861 1 Tablet(s) PO daily 04/02/2016 05/01/2016 Inactive Carafate 1 gram tablet RxNorm: 096240 Tablet(s) TAKE 1 TABLET TWICE A DAY FOR 30 DAYS 03/30/2016 10/25/2016 Inactive Generic For:CARAFATE 1GM 02/08/2015 12:3 6:39 PM Plavix 75 mg tablet RxNorm: 840567 1 Tablet(s) PO daily 03/11/2016 09/06/2016 Inactive sodium bicarbonate 6 50 mg tablet RxNorm: 654993 Tablet(s) 2 Tablet(s) PO BID 02/28/2016 06/26/2016 In active omeprazole 20 mg cap sean,delayed release RxNorm: 871390 Capsule(s) PO TAKE 1 CAPSULE BY MOUTH ONCE DAILY 01/31/2016 07/26/2016 Inactive Fish Oil 1,000 mg ca psule RxNorm: 1 Capsule(s) PO BID 01/14/2016 No Stop Date Active Synthroid 137 mcg ta blet RxNorm: 639207 1 Tablet(s) PO daily 01/14/2016 05/06/2016 Inactive Detrol LA 4 mg capsu le,extended release RxNorm: 456923 TAKE 1 CAPSULE BY JAVON TH ONCE DAILY 12/30/2015 07/26/2016 Inactive Generic For:DETROL LA 4MG C AP 12/30/2015 9:11:01 AM potassium chloride 2 0 mEq/15 mL oral liquid RxNorm: 013566 Milliliter(s) 30 Milliliter(s) (40mEq) PO daily 12/02/2015 03/30/2016 Inactive sodium bicarbonate 6 50 mg tablet RxNorm: 866463 Tablet(s) 2 Tablet(s) PO BID 10/31/2015 02/27/2016 In active Lipitor 40 mg tablet RxNorm: 284976 1 Tablet(s) PO daily 10/09/2015 09/24/2016 Inactive sodium bicarbonate 6 50 mg tablet RxNorm: 169275 2 Tablet(s) PO BID 10/01/2015 10/30/2015 Inactive allopurinol 300 mg t ablet RxNorm: 187434 TAKE 1 TABLET BY MOUT H ONCE DAILY. 10/01/2015 04/27/2016 In active Generic For:ZYLOPRIM 300 MG TABLET 09/19 9:21:15 AM clonazepam 0.5 mg ta blet RxNorm: 661432 1 Tablet(s) PO BID 09/30/2015 04/19/2016 Inactive Coumadin 5 mg tablet RxNorm: 747415 1 Tablet(s) PO daily 09/27/2015 05/31/2017 Inactive Generic For:COUMADIN 5MG TAB N O T I C E PRESCRIPTION PREVIOUSLY AUTHORIZED BY DOCTOR:BOBBY ZULETA Synthroid 125 mcg ta blet RxNorm: 476380 1 Tablet(s) PO daily 09/27/2015 09/26/2015 Inactive Synthroid 125 mcg ta blet RxNorm: 247782 1 Tablet(s) PO daily 09/27/2015 01/13/2016 Inactive Carafate 1 gram tablet RxNorm: 430945 Tablet(s) TAKE 1 TABLET TWICE A DAY FOR 30 DAYS 09/02/2015 03/29/2016 Inactive Generic For:CARAFATE 1GM 02/08/2015 12:3 6:39 PM sodium bicarbonate 6 50 mg tablet RxNorm: 230424 2 Tablet(s) PO BID 09/02/2015 09/30/2015 Inactive Prilosec 20 mg capsu le,delayed release RxNorm: 018307 TAKE 1 CAPSULE BY JAVON TH ONCE DAILY 08/02/2015 01/28/2016 Inactive Generic For:PRILOSEC 20MG 08/02/2015 10:03:09 AM N O T I C E PRESCRIPTION PREVIOUSLY AUTHORIZED BY DOCTOR:BOBBY ZULETA Zyrtec 10 mg capsule RxNorm: 4302117 1 Capsule(s) PO daily 07/15/2015 08/13/2015 Inactive Keflex 500 mg capsule RxNorm: 022776 1 Capsule(s) PO TID 07/15/2015 07/21/2015 Inactive cetirizine 10 mg cap sean RxNorm: 9264366 1 Capsule(s) PO daily 07/15/2015 08/13/2015 Inactive hydrocodone 5 mg-humberto taminophen 325 mg tablet RxNorm: 658649 1-2 Tablet(s) PO Q6 P RN 06/10/2015 11/16/2016 In active sodium bicarbonate 6 50 mg tablet RxNorm: 397211 2 Tablet(s) PO BID 06/03/2015 08/31/2015 Inactive Detrol LA 4 mg capsu le,extended release RxNorm: 409274 TAKE 1 CAPSULE BY JAVON TH ONCE DAILY 06/03/2015 12/29/2015 Inactive Generic For:DETROL LA 4MG C AP N O T I C E PRESCRIPTION PREVIOUSLY AUTHORIZED BY DOCTOR:BOBBY ZULETA atenolol 50 mg tablet RxNorm: 549021 1 Tablet(s) PO daily TAKE 1 TABLET BY MO UTH DAILY 05/07/2015 08/23/2017 Inactive Generic For:TENORMIN 50MG 05/04/2015 9:07:22 AM spironolactone 25 mg tablet RxNorm: 257063 1 Tablet(s) PO daily 05/06/2015 06/07/2016 Inactive venlafaxine ER 75 mg capsule,extended release 24 hr RxNorm: 552878 1 Capsule(s) PO daily 05/04/2015 06/28/2016 Inactive atenolol 50 mg tablet RxNorm: 752639 TAKE 1 TABLET BY MOUTH DAILY 05/04/2015 05/06/2015 Inactive Generic For:TENORMIN 50MG 05/04/2015 9: 07:22 AM Synthroid 150 mcg ta blet RxNorm: 124468 TAKE 1 TABLET BY MOUT H ONCE DAILY. 04/05/2015 09/26/2015 In active Generic For:SYNTHROID 150MCG TAB 2014 4:45:40 PM N O T I C E PRESCRIPTION PREVIOUSLY AUTHORIZED BY DOCTOR:BOBBY ZULETA Effexor 75 mg tablet RxNorm: 156914 1 Tablet(s) PO daily 04/05/2015 07/03/2015 Inactive Coumadin 5 mg tablet RxNorm: 869650 TAKE 1 AND 1/2 TABLETS BY MOUTH ONCE MYRANDA LY 04/04/2015 09/26/2015 In active Generic For:COUMADIN 5MG TAB N O T I C E PRESCRIPTION PREVIOUSLY AUTHORIZED BY DOCTOR:BOBBY ZULETA clonazepam 0.5 mg ta blet RxNorm: 612466 1 Tablet(s) PO BID 03/13/2015 11/05/2015 Inactive sodium bicarbonate 6 50 mg tablet RxNorm: 478362 2 Tablet(s) PO BID 03/08/2015 06/02/2015 Inactive allopurinol 300 mg t ablet RxNorm: 199371 TAKE 1 TABLET BY MOUT H ONCE DAILY. 03/05/2015 09/30/2015 In active N O T I C E PRESCRIPTION PREVIOUSLY A UTHORIZED BY DOCTOR:BOBBY ZULETA Plavix 75 mg tablet RxNorm: 791785 1 Tablet(s) PO daily 02/12/2015 09/09/2015 Inactive clonazepam 0.5 mg ta blet RxNorm: 559691 1 Tablet(s) PO BID 02/11/2015 03/11/2015 Inactive Carafate 1 gram tablet RxNorm: 494385 TAKE 1 TABLET TWICE A DAY FOR 30 DAYS 02/08/2015 02/07/2015 In active Generic For:CARAFATE 1GM 02/08/2015 12:3 6:39 PM Carafate 1 gram tablet RxNorm: 801643 Tablet(s) TAKE 1 TABLET TWICE A DAY FOR 30 DAYS 02/08/2015 09/01/2015 Inactive Generic For:CARAFATE 1GM 02/08/2015 12:3 6:39 PM potassium chloride 2 0 mEq/15 mL oral liquid RxNorm: 788264 30 Milliliter(s) (40m Eq) PO daily 02/05/2015 12/01/2015 Inactive atenolol 50 mg tablet RxNorm: 873554 1 Tablet(s) PO daily 02/04/2015 05/03/2015 Inactive [SAVINGS FOR NON-COVERED DRUGS -- BIN: 110, PCN: [id number], Group: XXXXX, ID# XXXXXXX, Questions: . THIS IS NOT INSURANCE.] potassium chloride 2 0 mEq/15 mL oral liquid RxNorm: 657106 30 Milliliter(s) (40m Eq) PO daily 01/08/2015 02/04/2015 Inactive potassium chloride 2 0 mEq/15 mL oral liquid RxNorm: 862271 30 Milliliter(s) (40m Eq) PO daily 12/07/2014 01/07/2015 Inactive atenolol 50 mg tablet RxNorm: 258666 1 Tablet(s) PO daily 11/09/2014 11/08/2014 Inactive atenolol 50 mg tablet RxNorm: 885587 1 Tablet(s) PO daily 11/09/2014 02/03/2015 Inactive [SAVINGS FOR NON-COVERED DRUGS -- BIN: 644, PCN: ASPROD1, Group: XXXXX, ID# XXXXXXX, Questions: . THIS IS NOT INSURANCE.] Voltaren 1 % topical gel RxNorm: 669105 TOP No St art Date Active verapamil ER (HS) 24 0 mg tablet,extended release 24 hr RxNorm: 764748 1 Tablet(s) PO daily No Start Date Active aspirin 81 mg tablet RxNorm: 890562 1 Tablet(s) PO daily No Start Date Active Zofran 4 mg tablet RxNorm: 500239 1 Tablet(s) PO PRN No Start Date Active B12 1000 mcg RxNorm: 1 Tablet(s) PO daily No Start Date Active magnesium oxide 400 mg capsule RxNorm: 837343 2 Capsule(s) PO BID No Start Date Active Synthroid 150 mcg ta blet RxNorm: 595235 1 Tablet(s) PO daily No Start Date 04/04/2015 Inactive Coumadin 5 mg tablet RxNorm: 706443 1 Tablet(s) PO daily No Start Date 04/03/2015 Inactive cranberry 1,000 mg c apsule RxNorm: 785674 1 Capsule(s) PO daily No Start Date 04/13/2018 Inactive allopurinol 300 mg t ablet RxNorm: 100687 1 Tablet(s) PO daily No Start Date 03/04/2015 Inactive Prilosec 20 mg capsu le,delayed release RxNorm: 265122 1 Capsule(s) PO PRN No Start Date 08/01/2015 Inactive potassium chloride 2 0 mEq/15 mL oral liquid RxNorm: 232520 30 Milliliter(s) (40m Eq) PO daily No Start Date 12/06/2014 Inactive atenolol 50 mg tablet RxNorm: 776311 1 Tablet(s) PO daily No Start Date 08/29/2017 Inactive Lipitor 40 mg tablet RxNorm: 537725 1 Tablet(s) PO daily No Start Date 09/19/2017 Inactive Effexor 75 mg tablet RxNorm: 644845 1 Tablet(s) PO daily No Start Date 04/04/2015 Inactive Carafate 1 gram tablet RxNorm: 389229 1 Tablet(s) PO BID No Start Date 02/07/2015 Inactive clonazepam 0.5 mg ta blet RxNorm: 002895 1 Tablet(s) PO BID No Start Date 02/10/2015 Inactive Plavix 75 mg tablet RxNorm: 723313 1 Tablet(s) PO daily No Start Date 02/11/2015 Inactive sodium bicarbonate 6 50 mg tablet RxNorm: 927399 2 Tablet(s) PO BID No Start Date 09/01/2015 Inactive Lovenox 30 mg/0.3 mL subcutaneous syringe RxNorm: 765256 0.3 Milliliter(s) SQ Q12H No Start Date 03/15/2017 Inactive Fish Oil 1,000 mg ca psule RxNorm: 1 Capsule(s) PO daily No Start Date 01/13/2016 Inactive Detrol LA 4 mg capsu le,extended release RxNorm: 783472 1 Capsule(s) PO daily No Start Date 06/02/2015 Inactive Medication Administered No Medication Administered data Immunizations Vaccine Codes Date Status SHINGARIX CVX: 121 03/23 completed Assessments Condition Codes Effectiv e Dates Hypothyroidism, unspecified ICD-10: E03.9 ICD-9: 244.9 04/14/2018 Essential (primary) hypertension ICD -10: I10 ICD-9: 401.9 04/14/2018 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 [...] fatigue ICD-10: R53.83 ICD-9: 780.79 08/20/2016 Other skilled nursing (current) drug therapy ICD-10: Z79.899 ICD-9: V58.69 [...] Code Item Item Code Result Date Pt [id number] PT 18.4 seconds 06/17/2018 Pt [id number] INR 1.6 06/17/2018 Pt [id number] Low Intensity - 1.5-2.0 06/17/2018 Pt [id number] Mod intensity - 2.0-3.0 06/17/2018 Pt [id number] Hi intensity - 3.0-4.0 06/17/2018 Sed Rate [...] 30.4 pg 06/08/2018 Cbc With Differential Ord2 Bibb% 9.4 % 06/08/2018 Cbc With Differential Ord2 [...] 1.20 K/ul 06/08/2018 Cbc With Differential Ord2 Bibb ABS# 0.5 K/ul 06/08/2018 Cbc With Differential Ord2 Eos ABS# 0.1 K/ul 06/08/2018 Cbc With Differential Ord2 Baso ABS# 0.1 K/ul 06/08/2018 C-Reactive Protein Qnt Crqnt CRP 0.1 mg/dl 06/08/2018 Pt [id number] PT 17.6 seconds 06/08/2018 Pt [id number] INR 1.5 06/08/2018 Pt [id number] Low Intensity - 1.5-2.0 06/08/2018 Pt Eql3254 Mod intensity - 2.0-3.0 06/08/2018 Pt Svv8347 Hi intensity - 3.0-4.0 06/08/2018 Pt Hrc2709 PT 16.8 seconds 05/10/2018 Pt Ytg5048 INR 1.4 05/10/2018 Pt Juz6478 Low Intensity - 1.5-2.0 05/10/2018 Pt Zqi8626 Mod intensity - 2.0-3.0 05/10/2018 Pt Whx2059 Hi intensity - 3.0-4.0 05/10/2018 Pt Jyx3148 PT 16.7 seconds 05/04/2018 Pt Mkm0871 INR 1.4 05/04/2018 Pt Xcj6483 Low Intensity - 1.5-2.0 05/04/2018 Pt Jrp4576 Mod intensity - 2.0-3.0 05/04/2018 Pt Xsc6224 Hi intensity - 3.0-4.0 05/04/2018 Free T4 Szd537 FREE T4 1.09 ng/dL 04/14/2018 Tsh Ord6 TSH (3rd IS) 2.36 uIU/mL 04/14/2018 Pt Zhd2957 PT 20.3 seconds 04/14/2018 Pt Lfm4230 INR 1.8 04/14/2018 Pt Yqv4888 Low Intensity - 1.5-2.0 04/14/2018 Pt Smd0471 Mod intensity - 2.0-3.0 04/14/2018 Pt Ebn1327 Hi intensity - 3.0-4.0 04/14/2018 Lipid Ord30 CHOL 149 mg/dL 04/14/2018 Lipid Ord30 HDL 49.0 mg/dl 04/14/2018 Lipid Ord30 TRIG 161 mg/dL 04/14/2018 Lipid Ord30 LDL 68 mg/dL 04/14/2018 Lipid Ord30 C/HDL 3.0 Ratio 04/14/2018 %Hba1C Slk594 % HbA1c 56230-3 5.9 % 04/14/2018 %Hba1C Dxn217 Gluc Ave 123 mg/dL 04/14/2018 Comp Metabolic Bvo436 NA 140 mEq/L 04/14/2018 Comp Metabolic Jdn468 K 4.1 mEq/L 04/14/2018 Comp Metabolic Fhx924 CL 105 mEq/L 04/14/2018 Comp Metabolic Ork868 CO2 28.0 mEq/L 04/14/2018 Comp Metabolic Rtu413 AN ION GAP 11 04/14/2018 Comp Metabolic Mgo325 GL UCOSE 112 mg/dL 04/14/2018 Comp Metabolic Olm589 Cr eat 1.0 mg/dL 04/14/2018 Comp Metabolic Vbh732 eG FR 58 ml/min/1.73m2 04/14 Comp Metabolic Slt851 BUN 20 mg/dL 04/14/2018 Comp Metabolic Rlh044 B/ C Ratio 20.2 Ratio 04/14/2018 Comp Metabolic Lbu909 CA LCIUM 10.0 mg/dL 04/14/2018 Comp Metabolic Hcb979 AL K PHOS 51 U/L 04/14/2018 Comp Metabolic Rcr242 T(SGOT) 24 U/L 04/14/2018 Comp Metabolic Nge043 AL T(SGPT) 21 U/L 04/14/2018 Comp Metabolic Lse199 BI LI T 0.8 mg/dL 04/14/2018 Comp Metabolic Nfm690 AL BUMIN 4.2 g/dL 04/14/2018 Comp Metabolic Yib252 TP RO 7.1 g/dL 04/14/2018 Comp Metabolic Pgg859 GL OB 2.9 g/dL 04/14/2018 Comp Metabolic Gyg472 A/ G Ratio 1.5 Ratio 04/14/2018 Comp Metabolic Mln901 Os mo 283 mOsmo 04/14/2018 Cbc With [...] 30.7 pg 04/14/2018 Cbc With Differential Ord2 Bibb% 10.6 % 04/14/2018 Cbc With Differential Ord2 [...] 1.18 K/ul 04/14/2018 Cbc With Differential Ord2 Bibb ABS# 0.5 K/ul 04/14/2018 Cbc With Differential Ord2 Eos ABS# 0.2 K/ul 04/14/2018 Cbc With Differential Ord2 Baso ABS# 0.1 K/ul 04/14/2018 Pt Rty7766 PT 29.3 seconds 02/11/2018 Pt Uvj1894 INR 2.8 02/11/2018 Pt Mqa4245 Low Intensity - 1.5-2.0 02/11/2018 Pt Upv8866 Mod intensity - 2.0-3.0 02/11/2018 Pt Rhp4242 Hi intensity - 3.0-4.0 02/11/2018 Comp Metabolic Gjv659 NA 141 mEq/L 01/05/2018 Comp Metabolic Tgx193 K 3.7 mEq/L 01/05/2018 Comp Metabolic Dwu637 CL 102 mEq/L 01/05/2018 Comp Metabolic Hui109 CO2 29.0 mEq/L 01/05/2018 Comp Metabolic Dws352 AN ION GAP 14 01/05/2018 Comp Metabolic Stx138 GL UCOSE 136 mg/dL 01/05/2018 Comp Metabolic Rki126 Cr eat 1.0 mg/dL 01/05/2018 Comp Metabolic Ygh103 eG FR 61 ml/min/1.73m2 01/05 Comp Metabolic Gpg565 BUN 22 mg/dL 01/05/2018 Comp Metabolic Tor121 B/ C Ratio 22.9 Ratio 01/05/2018 Comp Metabolic Crj188 CA LCIUM 9.7 mg/dL 01/05/2018 Comp Metabolic Gtm313 AL K PHOS 57 U/L 01/05/2018 Comp Metabolic Ehh891 T(SGOT) 21 U/L 01/05/2018 Comp Metabolic Pxh713 AL T(SGPT) 19 U/L 01/05/2018 Comp Metabolic Dvh533 BI LI T 0.9 mg/dL 01/05/2018 Comp Metabolic Yym574 AL BUMIN 4.1 g/dL 01/05/2018 Comp Metabolic Eqc641 TP RO 7.1 g/dL 01/05/2018 Comp Metabolic Edp602 GL OB 3.0 g/dL 01/05/2018 Comp Metabolic Bjj948 A/ G Ratio 1.4 Ratio 01/05/2018 Comp Metabolic Kgg080 Os mo 287 mOsmo 01/05/2018 Free T4 Txo511 FREE T4 1.05 ng/dL 01/05/2018 %Hba1C Ypb945 % HbA1c 76707-5 6.0 % 01/05/2018 %Hba1C Vng791 Gluc Ave 126 mg/dL 01/05/2018 Cbc With [...] 27.3 % 01/05/2018 Cbc With Differential Ord2 Bibb% 10.5 % 01/05/2018 Cbc With Differential Ord2 [...] 1.27 K/ul 01/05/2018 Cbc With Differential Ord2 Bibb ABS# 0.5 K/ul 01/05/2018 Cbc With Differential Ord2 Eos ABS# 0.2 K/ul 01/05/2018 Cbc With Differential Ord2 Baso ABS# 0.1 K/ul 01/05/2018 Pt Deo2040 PT 20.7 seconds 01/05/2018 Pt Csd0820 INR 1.8 01/05/2018 Pt Cfy7003 Low Intensity - 1.5-2.0 01/05/2018 Pt Tvj7910 Mod intensity - 2.0-3.0 01/05/2018 Pt Yzw3281 Hi intensity - 3.0-4.0 01/05/2018 Tsh Ord6 TSH (3rd IS) 2.34 uIU/mL 01/05/2018 Lipid Ord30 CHOL 156 mg/dL 01/05/2018 Lipid Ord30 HDL 48.0 mg/dl 01/05/2018 Lipid Ord30 TRIG 207 mg/dL 01/05/2018 Lipid Ord30 LDL 67 mg/dL 01/05/2018 Lipid Ord30 C/HDL 3.3 Ratio 01/05/2018 Pt Txq2214 PT 28.3 seconds 11/26/2017 Pt Cwt7020 INR 2.6 11/26/2017 Pt Ppg7162 Low Intensity - 1.5-2.0 11/26/2017 Pt Axt6235 Mod intensity - 2.0-3.0 11/26/2017 Pt Ajq0582 Hi intensity - 3.0-4.0 11/26/2017 Pt Tog4338 PT 36.5 seconds 11/19/2017 Pt Gon6618 INR 3.6 11/19/2017 Pt Naj1756 Low Intensity - 1.5-2.0 11/19/2017 Pt Nek6166 Mod intensity - 2.0-3.0 11/19/2017 Pt Hzs9940 Hi intensity - 3.0-4.0 11/19/2017 Pt Kdu7135 PT 22.9 seconds 10/15/2017 Pt Njs5114 INR 2.0 10/15/2017 Pt Ubd6554 Low Intensity - 1.5-2.0 10/15/2017 Pt Lpu8313 Mod intensity - 2.0-3.0 10/15/2017 Pt Mdw1309 Hi intensity - 3.0-4.0 10/15/2017 Pt Xba6526 PT 25.9 seconds 10/01/2017 Pt Tyf2134 INR 2.4 10/01/2017 Pt Ezi8604 Low Intensity - 1.5-2.0 10/01/2017 Pt Qws2065 Mod intensity - 2.0-3.0 10/01/2017 Pt Tub4721 Hi intensity - 3.0-4.0 10/01/2017 Pt Gwn6320 PT 20.6 seconds 09/24/2017 Pt Axo6155 INR 1.8 09/24/2017 Pt Qcl6390 Low Intensity - 1.5-2.0 09/24/2017 Pt Cdu0406 Mod intensity - 2.0-3.0 09/24/2017 Pt Ren6397 Hi intensity - 3.0-4.0 09/24/2017 Pt Kwv0161 PT 21.0 seconds 09/15/2017 Pt Qji9761 INR 1.8 09/15/2017 Pt Vqb5298 Low Intensity - 1.5-2.0 09/15/2017 Pt Iwy9211 Mod intensity - 2.0-3.0 09/15/2017 Pt Pgl8079 Hi intensity - 3.0-4.0 09/15/2017 Pt Xkq5313 PT 19.0 seconds 09/03/2017 Pt Rys4317 INR 1.6 09/03/2017 Pt Yzq8940 Low Intensity - 1.5-2.0 09/03/2017 Pt Vgh4150 Mod intensity - 2.0-3.0 09/03/2017 Pt Ruk1912 Hi intensity - 3.0-4.0 09/03/2017 Pt Ziy9410 PT 17.6 seconds 08/23/2017 Pt Rjw7799 INR 1.5 08/23/2017 Pt Orn4130 Low Intensity - 1.5-2.0 08/23/2017 Pt Cts6024 Mod intensity - 2.0-3.0 08/23/2017 Pt Vaq8149 Hi intensity - 3.0-4.0 08/23/2017 Pt Pjj9577 PT 12.7 seconds 08/20/2017 Pt Tnk4306 INR 1.0 08/20/2017 Pt Dwj9218 Low Intensity - 1.5-2.0 08/20/2017 Pt Umy0720 Mod intensity - 2.0-3.0 08/20/2017 Pt Nif2140 Hi intensity - 3.0-4.0 08/20/2017 Pt Wof3920 PT 12.9 seconds 08/17/2017 Pt Mby5546 INR 1.0 08/17/2017 Pt Uhl5142 Low Intensity - 1.5-2.0 08/17/2017 Pt Qnb9775 Mod intensity - 2.0-3.0 08/17/2017 Pt Dum0073 Hi intensity - 3.0-4.0 08/17/2017 Pt Njg9010 PT 18.5 seconds 08/10/2017 Pt Elj7254 INR 1.6 08/10/2017 Pt Bbr8981 Low Intensity - 1.5-2.0 08/10/2017 Pt Pbr2121 Mod intensity - 2.0-3.0 08/10/2017 Pt Ycb6094 Hi intensity - 3.0-4.0 08/10/2017 Tsh Ord6 [...] 14.7 % 05/27/2017 Cbc With Differential Ord2 Bibb% 8.1 % 05/27/2017 Cbc With Differential Ord2 [...] 1.11 K/ul 05/27/2017 Cbc With Differential Ord2 Bibb ABS# 0.6 K/ul 05/27/2017 Cbc With Differential Ord2 Eos ABS# 0.2 K/ul 05/27/2017 Cbc With Differential Ord2 Baso ABS# 0.1 K/ul 05/27/2017 Pt Tfw3097 PT 28.2 seconds 05/27/2017 Pt Cnu6625 INR 2.6 05/27/2017 Pt Zpv0428 Low Intensity - 1.5-2.0 05/27/2017 Pt Acd1676 Mod intensity - 2.0-3.0 05/27/2017 Pt Vfv3694 Hi intensity - 3.0-4.0 05/27/2017 Lipid Ord30 CHOL 167 mg/dL 05/27/2017 Lipid Ord30 HDL 49.0 mg/dl 05/27/2017 Lipid Ord30 TRIG 347 mg/dL 05/27/2017 Lipid Ord30 LDL 49 mg/dL 05/27/2017 Lipid Ord30 C/HDL 3.4 Ratio 05/27/2017 Magnesium Ord90 Mag 1.4 mg/dL 05/27/2017 %Hba1C Xzc856 % HbA1c 48112-2 5.9 % 05/27/2017 %Hba1C Dgc770 Gluc Ave 123 mg/dL 05/27/2017 Comp Metabolic Mtj531 NA 138 mEq/L 05/27/2017 Comp Metabolic Dlh718 K 4.1 mEq/L 05/27/2017 Comp Metabolic Rav836 CL 101 mEq/L 05/27/2017 Comp Metabolic Fqu103 CO2 31.0 mEq/L 05/27/2017 Comp Metabolic Taa045 AN ION GAP 10 05/27/2017 Comp Metabolic Gix049 GL UCOSE 117 mg/dL 05/27/2017 Comp Metabolic Qmw606 Cr eat 0.9 mg/dL 05/27/2017 Comp Metabolic Cnt811 eG FR 62 ml/min/1.73m2 05/27 Comp Metabolic Ryd582 BUN 25 mg/dL 05/27/2017 Comp Metabolic Mbd197 B/ C Ratio 26.6 Ratio 05/27/2017 Comp Metabolic Tzf136 CA LCIUM 9.5 mg/dL 05/27/2017 Comp Metabolic Edm290 AL K PHOS 73 U/L 05/27/2017 Comp Metabolic Zon849 T(SGOT) 18 U/L 05/27/2017 Comp Metabolic Shx770 AL T(SGPT) 12 U/L 05/27/2017 Comp Metabolic Lkw299 BI LI T 0.5 mg/dL 05/27/2017 Comp Metabolic Oyv776 AL BUMIN 4.1 g/dL 05/27/2017 Comp Metabolic Uin468 TP RO 7.1 g/dL 05/27/2017 Comp Metabolic Tyw852 GL OB 3.0 g/dL 05/27/2017 Comp Metabolic Udb980 A/ G Ratio 1.3 Ratio 05/27/2017 Comp Metabolic Icb106 Os mo 281 mOsmo 05/27/2017 Free T4 Lsh668 FREE T4 0.91 ng/dL 05/27/2017 Pt Eku4321 PT 29.2 seconds 04/16/2017 Pt Vrs5740 INR 2.7 04/16/2017 Pt Bch3096 Low Intensity - 1.5-2.0 04/16/2017 Pt Csj3645 Mod intensity - 2.0-3.0 04/16/2017 Pt Amy4689 Hi intensity - 3.0-4.0 04/16/2017 Pt Vky7970 PT 30.7 seconds 03/31/2017 Pt Nvr2101 INR 2.9 03/31/2017 Pt Jna4599 Low Intensity - 1.5-2.0 03/31/2017 Pt Jsq0950 Mod intensity - 2.0-3.0 03/31/2017 Pt Tit2332 Hi intensity - 3.0-4.0 03/31/2017 Pt Uat9155 PT 21.3 seconds 03/26/2017 Pt Vvs8205 INR 1.9 03/26/2017 Pt Zrz0504 Low Intensity - 1.5-2.0 03/26/2017 Pt Ghk1363 Mod intensity - 2.0-3.0 03/26/2017 Pt Gkv0678 Hi intensity - 3.0-4.0 03/26/2017 Pt Uoq1628 PT 19.8 seconds 03/22/2017 Pt Tzk6270 INR 1.7 03/22/2017 Pt Nac1557 Low Intensity - 1.5-2.0 03/22/2017 Pt Kcf3046 Mod intensity - 2.0-3.0 03/22/2017 Pt Lou2052 Hi intensity - 3.0-4.0 03/22/2017 Pt Cvr3296 PT 15.6 seconds 03/19/2017 Pt Qvi1318 INR 1.3 03/19/2017 Pt Rpq7133 Low Intensity - 1.5-2.0 03/19/2017 Pt Hfe1629 Mod intensity - 2.0-3.0 03/19/2017 Pt Tbg8568 Hi intensity - 3.0-4.0 03/19/2017 Pt Dwn5677 PT 13.7 seconds 03/15/2017 Pt Msv2894 INR 1.1 03/15/2017 Pt Ixf7132 Low Intensity - 1.5-2.0 03/15/2017 Pt Qls5406 Mod intensity - 2.0-3.0 03/15/2017 Pt Cqi3919 Hi intensity - 3.0-4.0 03/15/2017 Pt Yim5885 PT 25.8 seconds 01/28/2017 Pt Fgx5462 INR 2.4 01/28/2017 Pt Kjf7747 Low Intensity - 1.5-2.0 01/28/2017 Pt Zyt1124 Mod intensity - 2.0-3.0 01/28/2017 Pt Wyz3355 Hi intensity - 3.0-4.0 01/28/2017 %Hba1C Tle435 % HbA1c 10955-4 6.4 % 10/23/2016 %Hba1C Otp770 Gluc Ave 137 mg/dL 10/23/2016 Comp Metabolic Klj837 NA 138 mEq/L 10/23/2016 Comp Metabolic Xhj382 K 3.4 mEq/L 10/23/2016 Comp Metabolic Gmo147 CL 100 mEq/L 10/23/2016 Comp Metabolic Frc663 CO2 30.0 mEq/L 10/23/2016 Comp Metabolic Lpq935 AN ION GAP 11 10/23/2016 Comp Metabolic Vme579 GL UCOSE 139 mg/dL 10/23/2016 Comp Metabolic Zbc777 Cr eat 0.9 mg/dL 10/23/2016 Comp Metabolic Eyo393 eG FR 62 ml/min/1.73m2 10/23 Comp Metabolic Gxl194 BUN 22 mg/dL 10/23/2016 Comp Metabolic Ezj670 B/ C Ratio 23.4 Ratio 10/23/2016 Comp Metabolic Gtu677 CA LCIUM 8.7 mg/dL 10/23/2016 Comp Metabolic Gxj042 AL K PHOS 66 U/L 10/23/2016 Comp Metabolic Uwu514 T(SGOT) 20 U/L 10/23/2016 Comp Metabolic Ltt040 AL T(SGPT) 10 U/L 10/23/2016 Comp Metabolic Gml306 BI LI T 0.5 mg/dL 10/23/2016 Comp Metabolic Tbw734 AL BUMIN 3.5 g/dL 10/23/2016 Comp Metabolic Yod585 TP RO 6.3 g/dL 10/23/2016 Comp Metabolic Jsh741 GL OB 2.8 g/dL 10/23/2016 Comp Metabolic Zja980 A/ G Ratio 1.3 Ratio 10/23/2016 Comp Metabolic Xvk625 Os mo 281 mOsmo 10/23/2016 Pt Bgn4264 PT 26.8 seconds 10/23/2016 Pt Knj0900 INR 2.7 10/23/2016 Pt Yis1465 Low Intensity - 1.5-2.0 10/23/2016 Pt Gis3064 Mod intensity - 2.0-3.0 10/23/2016 Pt Bgg8308 Hi intensity - 3.0-4.0 10/23/2016 Pt Jby4339 PT 28.3 seconds 09/25/2016 Pt Tdf2907 INR 2.8 09/25/2016 Pt Dmp4778 Low Intensity - 1.5-2.0 09/25/2016 Pt Zbq0580 Mod intensity - 2.0-3.0 09/25/2016 Pt Ocx5918 Hi intensity - 3.0-4.0 09/25/2016 Metabolic Ord15 [...] Metabolic Ord15 CALCIUM 8.8 mg/dL 09/25/2016 Pt Nac9911 PT 30.6 seconds 09/11/2016 Pt Aoj2986 INR 3.2 09/11/2016 Pt Bco4596 Low Intensity - 1.5-2.0 09/11/2016 Pt Goi0267 Mod intensity - 2.0-3.0 09/11/2016 Pt Anl7390 Hi intensity - 3.0-4.0 09/11/2016 Comp Metabolic Hbi370 NA 138 mEq/L 09/11/2016 Comp Metabolic Bmx161 K 4.4 mEq/L 09/11/2016 Comp Metabolic Zty432 CL 103 mEq/L 09/11/2016 Comp Metabolic Bft822 CO2 31.0 mEq/L 09/11/2016 Comp Metabolic Wgs082 AN ION GAP 8 09/11/2016 Comp Metabolic Wom835 GL UCOSE 146 mg/dL 09/11/2016 Comp Metabolic Htk151 Cr eat 1.0 mg/dL 09/11/2016 Comp Metabolic Uzk218 eG FR 60 ml/min/1.73m2 09/11 Comp Metabolic Irk667 BUN 16 mg/dL 09/11/2016 Comp Metabolic Nzw388 B/ C Ratio 16.5 Ratio 09/11/2016 Comp Metabolic Cpx446 CA LCIUM 8.7 mg/dL 09/11/2016 Comp Metabolic Lcl716 AL K PHOS 52 U/L 09/11/2016 Comp Metabolic Nno443 T(SGOT) 19 U/L 09/11/2016 Comp Metabolic Vkn167 AL T(SGPT) 11 U/L 09/11/2016 Comp Metabolic Jzi867 BI LI T 0.7 mg/dL 09/11/2016 Comp Metabolic Ila614 AL BUMIN 3.3 g/dL 09/11/2016 Comp Metabolic Non803 TP RO 5.8 g/dL 09/11/2016 Comp Metabolic Yua930 GL OB 2.5 g/dL 09/11/2016 Comp Metabolic Gmg952 A/ G Ratio 1.3 Ratio 09/11/2016 Comp Metabolic Fle124 Os mo 280 mOsmo 09/11/2016 C-Reactive Protein Qnt Crqnt CRP 0.1 mg/dl 08/21/2016 Comp Metabolic Xnp856 NA 139 mEq/L 08/21/2016 Comp Metabolic Npa730 K 4.1 mEq/L 08/21/2016 Comp Metabolic Apl214 CL 102 mEq/L 08/21/2016 Comp Metabolic Oxh052 CO2 30.0 mEq/L 08/21/2016 Comp Metabolic Cky681 AN ION GAP 11 08/21/2016 Comp Metabolic Dcl764 GL UCOSE 148 mg/dL 08/21/2016 Comp Metabolic Nkw935 Cr eat 1.0 mg/dL 08/21/2016 Comp Metabolic Omk141 eG FR 55 ml/min/1.73m2 08/21 Comp Metabolic Rbz378 BUN 21 mg/dL 08/21/2016 Comp Metabolic Dev810 B/ C Ratio 20.2 Ratio 08/21/2016 Comp Metabolic Pqx240 CA LCIUM 9.4 mg/dL 08/21/2016 Comp Metabolic Dux404 AL K PHOS 63 U/L 08/21/2016 Comp Metabolic Bxa403 T(SGOT) 23 U/L 08/21/2016 Comp Metabolic Tbl980 AL T(SGPT) 16 U/L 08/21/2016 Comp Metabolic Wvg872 BI LI T 0.6 mg/dL 08/21/2016 Comp Metabolic Kvt499 AL BUMIN 3.9 g/dL 08/21/2016 Comp Metabolic Svd041 TP RO 6.8 g/dL 08/21/2016 Comp Metabolic Dkn940 GL OB 2.9 g/dL 08/21/2016 Comp Metabolic Qox858 A/ G Ratio 1.4 Ratio 08/21/2016 Comp Metabolic Ucy445 Os mo 283 mOsmo 08/21/2016 Sed Rate Ord21 ESR 16 mm/hr 08/21/2016 Pt Alf1656 PT 27.2 seconds 08/21/2016 Pt Zop0166 INR 2.7 08/21/2016 Pt Qav0648 Low Intensity - 1.5-2.0 08/21/2016 Pt Noa6539 Mod intensity - 2.0-3.0 08/21/2016 Pt Mxf4789 Hi intensity - 3.0-4.0 08/21/2016 Magnesium Ord90 Mag 1.9 mg/dL 08/21/2016 Pt Eca2764 PT 25.9 seconds 06/17/2016 Pt Yeb7807 INR 2.5 06/17/2016 Pt Mwp8613 Low Intensity - 1.5-2.0 06/17/2016 Pt Oof4192 Mod intensity - 2.0-3.0 06/17/2016 Pt Wkj1129 Hi intensity - 3.0-4.0 06/17/2016 Tsh Ord6 hTSH II 2.13 uIU/mL 06/08/2016 Free T4 Oeu133 FREE T4 0.79 ng/dL 06/08/2016 Cbc With [...] 80.8 fl 06/08/2016 Cbc With Differential Ord2 Bibb% 12.0 % 06/08/2016 Cbc With Differential Ord2 [...] 1.40 K/ul 06/08/2016 Cbc With Differential Ord2 Bibb ABS# 0.7 K/ul 06/08/2016 Cbc With Differential Ord2 Eos ABS# 0.3 K/ul 06/08/2016 Cbc With Differential Ord2 Baso ABS# 0.1 K/ul 06/08/2016 %Hba1C Mnv958 % HbA1c 94560-4 6.2 % 06/08/2016 %Hba1C Qpj176 Gluc Ave 131 mg/dL 06/08/2016 Comp Metabolic Hvl733 NA 138 mEq/L 06/08/2016 Comp Metabolic Oel866 K 3.9 mEq/L 06/08/2016 Comp Metabolic Wzz394 CL 105 mEq/L 06/08/2016 Comp Metabolic Zvk412 CO2 27.0 mEq/L 06/08/2016 Comp Metabolic Utt865 AN ION GAP 10 06/08/2016 Comp Metabolic Wmj518 GL UCOSE 127 mg/dL 06/08/2016 Comp Metabolic Xmb187 Cr eat 1.0 mg/dL 06/08/2016 Comp Metabolic Ybj412 eG FR 59 ml/min/1.73m2 06/08 Comp Metabolic Bvy959 BUN 19 mg/dL 06/08/2016 Comp Metabolic Ygr143 B/ C Ratio 19.4 Ratio 06/08/2016 Comp Metabolic Udc331 CA LCIUM 9.2 mg/dL 06/08/2016 Comp Metabolic Ehf148 AL K PHOS 77 U/L 06/08/2016 Comp Metabolic Ovb327 T(SGOT) 19 U/L 06/08/2016 Comp Metabolic Tuf403 AL T(SGPT) 13 U/L 06/08/2016 Comp Metabolic Jaa487 BI LI T 0.5 mg/dL 06/08/2016 Comp Metabolic Ccl783 AL BUMIN 3.8 g/dL 06/08/2016 Comp Metabolic Faa644 TP RO 6.6 g/dL 06/08/2016 Comp Metabolic Vhl864 GL OB 2.8 g/dL 06/08/2016 Comp Metabolic Zou380 A/ G Ratio 1.4 Ratio 06/08/2016 Comp Metabolic Ylc529 Os mo 280 mOsmo 06/08/2016 Pt Lgd6382 PT 36.1 seconds 06/08/2016 Pt Vst8062 INR 3.9 06/08/2016 Pt Tjt1708 Low Intensity - 1.5-2.0 06/08/2016 Pt Nlc2575 Mod intensity - 2.0-3.0 06/08/2016 Pt Zgj1415 Hi intensity - 3.0-4.0 06/08/2016 Lipid Ord30 CHOL 149 mg/dL 06/08/2016 Lipid Ord30 HDL 46.0 mg/dl 06/08/2016 Lipid Ord30 TRIG 279 mg/dL 06/08/2016 Lipid Ord30 LDL 47 mg/dL 06/08/2016 Lipid Ord30 C/HDL 3.2 Ratio 06/08/2016 Pt Djb6474 PT 30.9 seconds 02/12/2016 Pt Tbf8932 INR 3.2 02/12/2016 Pt Ufu6019 Low Intensity - 1.5-2.0 02/12/2016 Pt Ark4371 Mod intensity - 2.0-3.0 02/12/2016 Pt Jjp0282 Hi intensity - 3.0-4.0 02/12/2016 Free T4 Grh511 FREE T4 1.24 ng/dL 09/27/2015 %Hba1C Bqh524 % HbA1c 24720-4 6.4 % 09/27/2015 %Hba1C Eef699 Gluc Ave 137 mg/dL 09/27/2015 Tsh Ord6 hTSH II 0.37 uIU/mL 09/27/2015 Pt Lgh4006 PT 26.2 seconds 09/27/2015 Pt Wyh0472 INR 2.5 09/27/2015 Pt Sfw0261 Low Intensity - 1.5-2.0 09/27/2015 Pt Zit3697 Mod intensity - 2.0-3.0 09/27/2015 Pt Jiu7576 Hi intensity - 3.0-4.0 09/27/2015 Pt Rvf6634 PT 27.6 seconds 2015 Pt Zdt9186 INR 2.7 2015 Pt Cho4984 Low Intensity - 1.5-2.0 2015 Pt Hzz9526 Mod intensity - 2.0-3.0 2015 Pt Ios3947 Hi intensity - 3.0-4.0 2015 %Hba1C Dfp132 % HbA1c 64182-5 6.1 % 06/11/2015 %Hba1C Omd882 Gluc Ave 128 mg/dL 06/11/2015 Cbc With [...] Ord2 RDW 15.8 % 06/10/2015 Comp Metabolic Snd246 NA 139 mEq/L 06/10/2015 Comp Metabolic Pjb279 K 4.1 mEq/L 06/10/2015 Comp Metabolic Sef537 CL 105 mEq/L 06/10/2015 Comp Metabolic Guc162 CO2 27.0 mEq/L 06/10/2015 Comp Metabolic Hmd493 AN ION GAP 11 06/10/2015 Comp Metabolic Spw704 GL UCOSE 127 mg/dL 06/10/2015 Comp Metabolic Jpa522 Cr eat 1.0 mg/dL 06/10/2015 Comp Metabolic Nsv116 eG FR 59 ml/min/1.73m2 06/10 Comp Metabolic Xqf070 BUN 21 mg/dL 06/10/2015 Comp Metabolic Mdd728 B/ C Ratio 21.2 Ratio 06/10/2015 Comp Metabolic Vkn109 CA LCIUM 9.2 mg/dL 06/10/2015 Comp Metabolic Zzs769 AL K PHOS 87 U/L 06/10/2015 Comp Metabolic Wqv646 T(SGOT) 20 U/L 06/10/2015 Comp Metabolic Hrk476 AL T(SGPT) 17 U/L 06/10/2015 Comp Metabolic Feq889 BI LI T 0.4 mg/dL 06/10/2015 Comp Metabolic Tom889 AL BUMIN 4.1 g/dL 06/10/2015 Comp Metabolic Fae182 TP RO 7.2 g/dL 06/10/2015 Comp Metabolic Qzf207 GL OB 3.1 g/dL 06/10/2015 Comp Metabolic Dyu383 A/ G Ratio 1.3 Ratio 06/10/2015 Comp Metabolic Rma990 Os mo 282 mOsmo 06/10/2015 Tsh Ord6 hTSH II 0.86 uIU/mL 06/10/2015 Lipid Ord30 CHOL 161 mg/dL 06/10/2015 Lipid Ord30 HDL 49.0 mg/dl 06/10/2015 Lipid Ord30 TRIG 208 mg/dL 06/10/2015 Lipid Ord30 LDL 70 mg/dL 06/10/2015 Lipid Ord30 C/HDL 3.3 Ratio 06/10/2015 Pt Kba1450 PT 25.0 seconds 04/09/2015 Pt Dpw5897 INR 2.4 04/09/2015 Pt Xio7379 Low Intensity - 1.5-2.0 04/09/2015 Pt Mga2564 Mod intensity - 2.0-3.0 04/09/2015 Pt Ktq6052 Hi intensity - 3.0-4.0 04/09/2015 Free T4 Ccq972 FREE T4 1.05 ng/dL 01/22/2015 Pt Ooh1390 PT 27.2 seconds 01/22/2015 Pt Ytd8696 INR 2.6 01/22/2015 Pt Dnb2537 Low Intensity - 1.5-2.0 01/22/2015 Pt Izn3105 Mod intensity - 2.0-3.0 01/22/2015 Pt Dww1197 Hi intensity - 3.0-4.0 01/22/2015 Cbc With [...] Differential Ord2 RDW 15.2 % 01/22/2015 B12 Btk348 B12 402.00 pg/ml 01/22/2015 Tsh Ord6 hTSH II 0.65 uIU/mL 01/22/2015 Lipid Ord30 CHOL 166 mg/dL 01/22/2015 Lipid Ord30 HDL 48.0 mg/dl 01/22/2015 Lipid Ord30 TRIG 264 mg/dL 01/22/2015 Lipid Ord30 LDL 65 mg/dL 01/22/2015 Lipid Ord30 C/HDL 3.5 Ratio 01/22/2015 Comp Metabolic Veg176 NA 138 mEq/L 01/22/2015 Comp Metabolic Ebj664 K 4.1 mEq/L 01/22/2015 Comp Metabolic Jdf199 CL 104 mEq/L 01/22/2015 Comp Metabolic Bxv213 CO2 29.0 mEq/L 01/22/2015 Comp Metabolic Fin970 AN ION GAP 9 01/22/2015 Comp Metabolic Zdk744 GL UCOSE 106 mg/dL 01/22/2015 Comp Metabolic Ewa494 Cr eat 0.9 mg/dL 01/22/2015 Comp Metabolic Lzs158 eG FR 63 ml/min/1.73m2 01/22 Comp Metabolic Xhe566 BUN 21 mg/dL 01/22/2015 Comp Metabolic Xia292 B/ C Ratio 22.3 Ratio 01/22/2015 Comp Metabolic Djr747 CA LCIUM 9.4 mg/dL 01/22/2015 Comp Metabolic Roa096 AL K PHOS 83 U/L 01/22/2015 Comp Metabolic Vya269 T(SGOT) 23 U/L 01/22/2015 Comp Metabolic Qpw241 AL T(SGPT) 18 U/L 01/22/2015 Comp Metabolic Zbt240 BI LI T 0.8 mg/dL 01/22/2015 Comp Metabolic Khq138 AL BUMIN 4.2 g/dL 01/22/2015 Comp Metabolic Yik847 TP RO 7.3 g/dL 01/22/2015 Comp Metabolic Hcc321 GL OB 3.1 g/dL 01/22/2015 Comp Metabolic Nns461 A/ G Ratio 1.4 Ratio 01/22/2015 Comp Metabolic Nlh526 Os mo 279 mOsmo 01/22/2015 Review of [...] accomodation 01/18/2018 None Full Exam - General 1995 [...] Date URINALYSIS NONAUTO W /O SCOPE CPT-4: 50548 03/05/2017 Vital Signs Date Vital 04/14/2018 Blood Pressure 1: 116/78 Code: 8480-6 BMI: 41.6 Code: 41425-8 Heart Rate 1: 72 bpm Height: 5'1" SpO2: 98% Weight: 220 lbs 01/18/2018 Blood Pressure 1: 132/74 Code: 8480-6 BMI: 43.5 Code: 55734-9 Heart Rate 1: 70 bpm Height: 5'1" SpO2: 97% Weight: 230 lbs 01/04/2018 Blood Pressure 1: 134/76 Code: 8480-6 BMI: 42.7 Code: 46458-9 Heart Rate 1: 83 bpm Height: 5'1" SpO2: 98% Weight: 226 lbs 09/23/2017 Blood Pressure 1: 12476 Code: 8480-6 BMI: 42.3 Code: 98902-9 Heart Rate 1: 94 bpm Height: 5'1" SpO2: 96% Weight: 224 lbs 05/27/2017 Blood Pressure 1: 146/78 Code: 8480-6 BMI: 41.4 Code: 65645-6 Heart Rate 1: 85 bpm Height: 5'1" SpO2: 98% Weight: 219 lbs 02/24/2017 Blood Pressure 1: 138/66 Code: 8480-6 BMI: 41.4 Code: 05179-2 Heart Rate 1: 78 bpm Height: 5'1" SpO2: 97% Weight: 219 lbs 11/02/2016 Blood Pressure 1: 144/72 Code: 8480-6 BMI: 46.1 Code: 03566-9 Heart Rate 1: 78 bpm Height: 5'1" SpO2: 98% Weight: 244 lbs 09/30/2016 Blood Pressure 1: 130/76 Code: 8480-6 BMI: 45.0 Code: 64727-7 Heart Rate 1: 86 bpm Height: 5'1" SpO2: 98% Weight: 238 lbs 09/10/2016 Blood Pressure 1: 136/68 Code: 8480-6 BMI: 46.3 Code: 19889-9 Heart Rate 1: 83 bpm Height: 5'1" SpO2: 98% Weight: 245 lbs 08/20/2016 Blood Pressure 1: 142/78 Code: 8480-6 BMI: 45.3 Code: 23827-2 Heart Rate 1: 84 bpm Height: 5'1" SpO2: 99% Weight: 240 lbs 06/08/2016 Blood Pressure 1: 134/76 Code: 8480-6 BMI: 44.2 Code: 35701-5 Heart Rate 1: 86 bpm Height: 5'1" SpO2: 96% Weight: 234 lbs 04/02/2016 Blood Pressure 1: 142/70 Code: 8480-6 BMI: 44.6 Code: 33160-3 Heart Rate 1: 78 bpm Height: 5'1" SpO2: 97% Weight: 236 lbs 01/14/2016 Blood Pressure 1: 146/72 Code: 8480-6 BMI: 44.2 Code: 05164-2 Heart Rate 1: 86 bpm Height: 5'1" SpO2: 96% Weight: 234 lbs 10/02/2015 Blood Pressure 1: 158/76 Code: 8480-6 BMI: 44.2 Code: 20355-4 Heart Rate 1: 67 bpm Height: 5'1" SpO2: 97% Weight: 234 lbs 07/15/2015 Blood Pressure 1: 148/78 Code: 8480-6 Blood Pressure 1: 200/90 Code: 8480-6 BMI: 44.0 Code: 58588-7 Heart Rate 1: 89 bpm Height: 5'1" SpO2: 97% Weight: 233 lbs 06/10/2015 Blood Pressure 1: 140/82 Code: 8480-6 BMI: 44.0 Code: 42758-6 Heart Rate 1: 78 bpm Height: 5'1" [...] wearing crocs and there was a new american on the floor: her foot didn't move [...] Encounters Encounter Performer Loca tion Codes Date ([id number]) [id number] EST. 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 P ATIENT, LEVEL III Diagnosis: Localized edema[ICD10: R60.0] Diagnosis: Gastro-esophageal reflux disease without esophagitis[ICD10: K21.9] Edna Almanza MD, [facility] CPT-4: 32052 01/18/2018 ([id number]) [id number] EST. P ATIENT, LEVEL IV Diagnosis: Gastro-esophageal reflux disease without esophagitis[ICD10: K21.9] Diagnosis: Localized edema[ICD10: R60.0] Diagnosis: Essential (primary) hypertension[ICD10: I10] Diagnosis: Hypothyroidism, unspecified[ICD10: E03.9] Diagnosis: Impaired fasting glucose[ICD10: R73.01] Edna Almanza MD, [facility] CPT-4: 04694 01/04/2018 ([id number]) [id number] EST. 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 PATIENT, LEVEL III Diagnosis: Pain in right hip[ICD10: M25.551] Nata Almanza MD, [facility] CPT-4: 21126 02/24/2017 ([id number]) 36618 EST. P ATIENT, LEVEL IV Diagnosis: Essential (primary) hypertension[ICD10: I10] Diagnosis: Localized edema[ICD10: R60.0] Diagnosis: Pain in right hip[ICD10: M25.551] Sarai Almanza MD, [facility] CPT-4: 92785 11/02/2016 ([id number]) 74463 EST. P ATIENT, LEVEL IV Diagnosis: Essential (primary) hypertension[ICD10: I10] Diagnosis: Localized edema[ICD10: R60.0] Sarai Almanza MD, [facility] CPT-4: 82297 09/30/2016 81861 EST. PATIENT, LEVEL IV Diagnosis: Localized edema[ICD10: R60.0] Diagnosis: Pain in joints of left hand[ICD10: M25.542] Diagnosis: Pain in joints of right hand[ICD10: M25.541] Nata Almanza MD, [facility] CPT-4: 50233 09/10/2016 24111 EST. PATIENT, LEVEL IV Diagnosis: Localized edema[ICD10: R60.0] Diagnosis: Pain in joints of left hand[ICD10: M25.542] Diagnosis: Pain in joints of right hand[ICD10: M25.541] Diagnosis: Other fatigue[ICD10: R53.83] Nata Almanza MD, [facility] CPT-4: 36651 08/20/2016 60146 EST. 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 PATIENT, LEVEL IV Diagnosis: Other allergic rhinitis[ICD10: J30.89] Diagnosis: Acute laryngopharyngitis[ICD10: J06.0] Nata Almanza MD, [facility] CPT-4: 19341 04/02/2016 22913 EST. PATIENT, LEVEL IV Diagnosis: Left upper quadrant pain[ICD10: R10.12] Nata Almanza MD, [facility] CPT-4: 97846 01/14/2016 35922 EST. PATIENT, LEVEL IV Diagnosis: Pain in left shoulder[ICD10: M25.512] Diagnosis: Body mass index (BMI) 40.0-44.9, adult[ICD10: Z68.41] [facility] CPT-4: 80560 10/02/2015 40672 EST. PATIENT, LEVEL IV Diagnosis: Pain in left leg[ICD10: M79.605] Diagnosis: Other skilled nursing (current) drug therapy[ICD10: Z79.899] [facility] CPT-4: 17952 07/15/2015 ([id number]) 69730 EST. 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: Other skilled nursing (current) drug therapy[ICD10: Z79.899] [facility] CPT-4: 76705 06/10/2015 ([id number]) OFFICE VISI , [facility] - LEVEL 4 Diagnosis: ESSENTIAL HYPERTENSION[ICD9: 401.9] Diagnosis: HYPOTHYROIDISM[ICD9: 244.9] Diagnosis: ENCNTR LONG-RX USE NEC[ICD9: V58.69] Diagnosis: HYPERLIPIDEMIA[ICD9: 272.4] Diagnosis: Vitamin B12 deficiency[ICD9: 266.2] Diagnosis: Status post gastric surgery[ICD9: V45.89] Diagnosis: Snoring[ICD9: 786.09] [facility] CPT-4: 04268 01/22/2015 Plan of Care Planned Activity Notes [...] 04/14/2018 Appointment: Edna Douglas WPtel[phone] (15 min) Moderate 04/14/2018 [...] to further attempt to reduce peripheral edema. PKTG-rhaxqbgd-yphfrxur prilosec BID and carafate QID -discussed low spice, low acidic diet 01/18/2018 Appointment: Edna Douglas WPtel: [phone] [phone] (15 min) Moderate 01/18/2018 Patient Education: Patient [...] control. 01/04/2018 Appointment: Edna Douglas WPtel: [phone] [phone] [place] (30 min) Complex 01/04/2018 Patient Education: Patient Medication Summary Completed 01/04/2018 Care Plan: SCREENINGMAMMOGRAPHYDIGITAL LOINC : 10620-9 Pending 01/04/2018 Visit Plan: Abdominal hernia - not able to be taken to surgery by local providers and pt has been seen at [facility] and that surgeon felt like Kat [...] home. 09/23/2017 Appointment: [phone] [place] (15 min) Moderate 09/23/2017 Patient [...] medications. 05/27/2017 Appointment: Edna Douglas WPtel: [phone] [phone] (30 min) Complex 05/27/2017 Patient Education: Patient [...] [place]. 02/24/2017 Appointment: Nata Hsu [facility]el[phone] [facility] [place] (30 min) Complex [...] [place]. 11/02/2016 Appointment: Sarai Almanza WPtel: [phone] [facility] (15 min) Moderate 11/02/2016 Patient [...] peripheral edema. 09/30/2016 Appointment: Sarai Almanza WPtel: [phone] (15 min) Moderate [...] peripheral edema. 09/10/2016 Appointment: Nata Hsu WPtel: [facility] (30 min) Complex 09/10/2016 Patient Education: Patient [...] edema. 08/20/2016 Appointment: Nata Hsu WPtel: [phone] [facility] (30 min) Complex 08/20/2016 Patient Education: Patient Medication Summary Completed 08/20/2016 Referral: Otf Lee [facility] Referral Initiated 07/02/2016 Visit Plan: Chronic [...] 06/08/2016 Care Plan: Referral Order SNOMED-CT : [id number] Pending 06/08/2016 Visit Plan: URI - Pt [...] spray. 04/02/2016 Appointment: Nata Hsu WPtel: [phone] [facility] (30 min) Complex 04/02/2016 Patient Education: Patient [...] 01/14/2016 Appointment: Edna Douglas WPtel: [phone] (30 min) Complex 01/14/2016 Patient Education: Patient Medication Summary Completed 01/14/2016 Patient Education: Obesity Completed 01/14/2016 Care Plan: BMI Above normal followup DAVID F-MGMT EDUC & TRAIN 1 PT Pending 10/24/2015 Care Plan: X-RAY EXAM OF SHOULDER LOINC : 14307-3 Pending 10/24/2015 Visit Plan: Left shoulder pain [...] weight check. 10/02/2015 Appointment: Edna Douglas WPtel: [phone] (15 min) Moderate 10/02/2015 [...] 06/10/2015 Appointment: Sarai Almanza WPtel: [facility] (15 min) Moderate 04/22/2015 Visit Plan: [...] have surgical fixation - planning occurring at [facility]. Snoring - Sleep apnea symptoms [...] medications. 01/22/2015 Appointment: Sarai Almanza WPtel: [phone] [phone] [place] (S) New Patient 01/22/2015 Patient Education: Patient Medication Summary Completed 01/22/2015 Patient Education: Hypertension Completed 01/22/2015 Referral: Otf Lee [address] Referral Initiated Instructions Comment CONTINUE LASIX NE [...] months based on previous levels of control. Come in Wednesday to [facility] [...] have surgical fixation - planning occurring at [facility]. Snoring - Sleep apnea symptoms [...] to further attempt to reduce peripheral edema. RPEN-aglctdxr-boszyvjm prilosec BID and carafate QID -discussed low [...] and pt has been seen at [facility] and that surgeon felt like Kat [...]
--- OUTSIDE RECORDS SUMMARY | 2020-01-16 23:45 | XMS REPORT | CCD ---
Author Author Kat Almanza Organization Sarai Almanza MD, [facility] Address [address] [place] [address] Phone Care Team Providers Care Development Technical Lead Name Role Phone PP Unavailable CCM Unavailable Summary Purpose Interface Exchange Insurance Providers Payer name Policy type / Coverage type Covered republican ID Effective Begin Date Effective End Date WPS Medicare Part B Medicare Part B [id number] 2017 Unknown [employer] [place] Medicare Part B [id number] 2017 Unknown Family history Father Diagnosis Age At Onset Hyperlipidemia Unknown Heart Attack Unknown Mother Diagnosis Age At Onset Arthritis Unknown Social History Social History Element Codes Description Effective Dates Marital status Unknown M arried Nathan 09/30/2016 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 Number of children Unknown 3 01/22/[address]: 128179676 Never smoker 01/22/[address]: 689532159 Never drinks alcohol 01/22/2015 Allergies, Adverse Reactions, [...] 780.79 ICD-10: R53.83 Active 08/20/2016 Unknown 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 ICD-9: V58.69 ICD-10: [...] cose ICD-9: 790.21 ICD-10: R73.01 05/27/2017 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 ICD-9: V58.61 [...] ICD-9: 780.79 ICD-10: R53.83 08/20/2016 Active 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 ICD-9: V58.69 ICD-10: [...] Stop Date Sta tus Fill Instructions Coumadin 1 mg tablet RxNorm: 992654 1 Tablet(s) PO daily 06/17/2018 07/16/2018 Active Coumadin 1 mg tablet RxNorm: 251292 1 Tablet(s) PO daily 06/17/2018 06/16/2018 Inactive clonazepam 0.5 mg ta blet RxNorm: 732724 1 Tablet(s) PO BID 06/08/2018 11/04/2018 Active Carafate 1 gram tablet RxNorm: 749564 TAKE ONE TABLET BY MOUTH BEFORE MEALS AN D AT BEDTIME 05/18/2018 07/12/2018 Active Generic For:CARAFATE 1GM 8:38:28 AM Synthroid 137 mcg ta blet RxNorm: 281318 TAKE 1 TABLET BY MOUT H ONCE DAILY 05/18/2018 11/13/2018 Ac tive Generic For:SYNTHROID 137MCG TAB 2017 8:57:54 AM spironolactone 25 mg tablet RxNorm: 069555 TAKE 1 TABLET BY MOUT H EVERY DAY 05/18/2018 05/12/2019 Ac tive Generic For:*ALDACTONE 25MG 05/18/2018 8:57:50 AM allopurinol 300 mg t ablet RxNorm: 538544 TAKE 1 TABLET BY MOUT H ONCE DAILY. 04/18/2018 10/14/2018 Ac tive Generic For:ZYLOPRIM 300 MG TABLET 03/22 9:13:47 AM Lasix 20 mg tablet RxNorm: 268172 TAKE ONE TABLET BY MOUTH DAILY 04/18/2018 08/15/2018 Ac tive Generic For:LASIX 20MG 04/18/2018 9:13: 50 AM Carafate 1 gram tablet RxNorm: 774414 TAKE ONE TABLET BY MOUTH BEFORE MEALS AN D AT BEDTIME 04/18/2018 05/17/2018 Inactive Generic For:CARAFATE 1GM 1 9:32:51 AM Coumadin 5 mg tablet RxNorm: 575862 TAKE 1 TABLET BY MOUTH DIRECTED 03/21/2018 09/16/2018 Ac tive Generic For:COUMADIN 5MG TAB 03/21/2018 9:13:00 AM Carafate 1 gram tablet RxNorm: 335534 TAKE ONE TABLET BY MOUTH BEFORE MEALS AN D AT BEDTIME 03/21/2018 04/17/2018 Inactive Generic For:CARAFATE 1GM 1 9:14:24 AM Carafate 1 gram tablet RxNorm: 273355 1 Tablet(s) PO AC & HS 02/17/2018 03/20/2018 Inactive atenolol 100 mg tablet RxNorm: 938622 1 Tablet(s) PO daily 02/04/2018 09/01/2018 Active atenolol 50 mg tablet RxNorm: 311214 1 Tablet(s) PO daily 02/03/2018 02/03/2018 Inactive omeprazole 20 mg cap sean,delayed release RxNorm: 104368 1 Capsule(s) BID 01/21/2018 01/15/2019 Ac tive Generic For:PRILOSEC 20MG 07/22/2017 8:5 8:20 AM Carafate 1 gram tablet RxNorm: 526097 1 Tablet(s) PO AC & HS 01/21/2018 02/16/2018 Inactive Carafate 1 gram tablet RxNorm: 824555 1 Tablet(s) PO AC & HS 01/18/2018 01/20/2018 Inactive Carafate 1 gram tablet RxNorm: 050462 1 Tablet(s) PO AC & HS 01/18/2018 02/27/2018 Inactive Carafate 1 gram tablet RxNorm: 467314 1 Tablet(s) PO AC & HS TAKE ONE TABLET B Y MOUTH TWICE DAILY 01/18/2018 05/17/2018 Inactive Generic For:CARAFATE 1GM 0 12/20/2017 9:10:56 AM omeprazole 20 mg cap sean,delayed release RxNorm: 446192 Capsule(s) TAKE 1 CAP SEAN BY MOUTH EVERY DAY 01/17/2018 01/20/2018 Inactive Generic For:PRILOSEC 20MG 0 07/22/2017 8:58:20 AM omeprazole 20 mg cap sean,delayed release RxNorm: 044914 Capsule(s) TAKE 1 CAP SEAN BY MOUTH EVERY DAY 01/14/2018 01/16/2018 Inactive Generic For:PRILOSEC 20MG 07/22/2017 8:58:20 AM Plavix 75 mg tablet RxNorm: 651803 1 Tablet(s) PO daily 01/07/2018 07/05/2018 Active clonazepam 0.5 mg ta blet RxNorm: 168499 1 Tablet(s) PO BID 01/07/2018 06/05/2018 Inactive Carafate 1 gram tablet RxNorm: 619105 1 Tablet(s) PO AC & HS 01/04/2018 01/17/2018 Inactive sodium bicarbonate 6 50 mg tablet RxNorm: 872658 TAKE 2 TABLETS BY JAVON TH TWICE DAILY 12/20/2017 06/17/2018 In active 12/20/2017 9:10:59 AM Lasix 20 mg tablet RxNorm: 760163 TAKE ONE TABLET BY MOUTH DAILY 12/20/2017 04/17/2018 In active Generic For:LASIX 20MG 12/20/2017 9:11: 03 AM Carafate 1 gram tablet RxNorm: 870909 TAKE ONE TABLET BY MOUTH TWICE DAILY 12/20/2017 01/17/2018 In active Generic For:CARAFATE 1GM 12/20/2017 9:1 0:56 AM Synthroid 137 mcg ta blet RxNorm: 147348 TAKE 1 TABLET BY MOUT H ONCE DAILY 11/19/2017 05/17/2018 In active Generic For:SYNTHROID 137MCG TAB 2017 8:58:04 AM Detrol LA 4 mg capsu le,extended release RxNorm: 810541 TAKE 1 CAPSULE BY JAVON TH ONCE DAILY 10/20/2017 04/13/2018 Inactive Generic For:DETROL LA 4MG C AP 10/20/2017 9:01:56 AM allopurinol 300 mg t ablet RxNorm: 340162 TAKE 1 TABLET BY MOUT H ONCE DAILY. 10/20/2017 04/17/2018 In active Generic For:ZYLOPRIM 300 MG TABLET 07/2017 9:01:59 AM Coumadin 5 mg tablet RxNorm: 442203 1 Tablet(s) PO UD 10/01/2017 03/20/2018 Inactive cyclobenzaprine 5 mg tablet RxNorm: 143731 1 Tablet(s) PO TID as needed myscle spasm 09/23/2017 10/12/2017 Inactive Lipitor 40 mg tablet RxNorm: 458886 TAKE 1 TABLET BY MOUTH ONCE DAILY 09/20/2017 09/14/2018 Ac tive Generic For:LIPITOR 40MG 09/20/2017 8:5 6:04 AM atenolol 100 mg tablet RxNorm: 377522 1 Tablet(s) PO daily 08/30/2017 02/03/2018 Inactive atenolol 50 mg tablet RxNorm: 661955 1 Tablet(s) PO daily 08/30/2017 08/30/2017 Inactive Lovenox 30 mg/0.3 mL subcutaneous syringe RxNorm: 841915 0.3 Milliliter(s) SQ Q12H 08/24/2017 09/06/2017 In active Lasix 20 mg tablet RxNorm: 672012 TAKE ONE TABLET BY MOUTH DAILY 08/23/2017 12/19/2017 In active Generic For:LASIX 20MG 08/21/2017 9:04: 27 AM Synthroid 137 mcg ta blet RxNorm: 680003 TAKE 1 TABLET BY MOUT H ONCE DAILY 08/23/2017 11/18/2017 In active Generic For:SYNTHROID 137MCG TAB 2017 9:04:30 AM Lovenox 30 mg/0.3 mL subcutaneous syringe RxNorm: 981312 0.3 Milliliter(s) SQ Q12H 08/10/2017 08/23/2017 In active clonazepam 0.5 mg ta blet RxNorm: 350884 1 Tablet(s) PO BID 08/04/2017 12/30/2017 Inactive Coumadin 4 mg tablet RxNorm: 052308 TAKE 1 TABLET BY MOUTH THREE TIMES PER [place] (WEDNESDAY, WEDNESDAY AND WEDNESDAY) 07/22/2017 02/16/2018 Inactive Generic For:COUMADIN 4MG 07/22/2017 8:58:26 AM Coumadin 4 mg tablet RxNorm: 869672 TAKE 1 TABLET BY MOUTH THREE TIMES PER [place] (WEDNESDAY, WEDNESDAY AND WEDNESDAY) 07/22/2017 02/16/2018 Inactive Generic For:COUMADIN 4MG 07/22/2017 8:58:26 AM omeprazole 20 mg cap sean,delayed release RxNorm: 073289 TAKE 1 CAPSULE BY JAVON TH EVERY DAY 07/22/2017 01/13/2018 Inactive Generic For:PRILOSEC 20MG 07/22/2017 8: 58:20 AM venlafaxine ER 75 mg capsule,extended release 24 hr RxNorm: 763470 TAKE 1 CAPSULE BY MOUTH ONCE DAILY 06/22/2017 06/16/2018 Inactive Generic For:*EFFEXOR XR 75M G 06/19/2017 12:23:45 PM sodium bicarbonate 6 50 mg tablet RxNorm: 031372 TAKE 2 TABLETS BY JAVON TH TWICE DAILY 06/22/2017 12/18/2017 In active 06/19/2017 12:23:30 PM Coumadin 5 mg tablet RxNorm: 584433 1 Tablet(s) PO UD 06/01/2017 09/30/2017 Inactive Keflex 500 mg capsule RxNorm: 242711 1 Capsule(s) PO TID 05/27/2017 06/02/2017 Inactive Synthroid 137 mcg ta blet RxNorm: 304034 TAKE 1 TABLET BY MOUT H ONCE DAILY 05/24/2017 08/21/2017 In active Generic For:SYNTHROID 137MCG TAB 2016 8:55:59 AM Carafate 1 gram tablet RxNorm: 714579 TAKE ONE TABLET BY MOUTH TWICE DAILY 05/24/2017 12/19/2017 In active Generic For:CARAFATE 1GM 05/24/2017 8:5 5:54 AM spironolactone 25 mg tablet RxNorm: 775269 1 Tablet(s) PO daily 05/24/2017 05/17/2018 Inactive Detrol LA 4 mg capsu le,extended release RxNorm: 164744 1 Capsule(s) PO daily TAKE 1 CAPSULE BY MOUTH ONCE DAILY 05/10/2017 10/19/2017 Inactive Generic For:DETROL LA 4MG CAP 02/19/2017 2:36:00 PM Lasix 20 mg tablet RxNorm: 993229 TAKE ONE TABLET BY MOUTH DAILY 04/23/2017 08/20/2017 In active Generic For:LASIX 20MG 04/23/2017 9:04: 01 AM Coumadin 4 mg tablet RxNorm: 083325 TAKE 1 TABLET BY MOUTH THREE TIMES PER [place] (WEDNESDAY, WEDNESDAY AND WEDNESDAY) 04/23/2017 07/21/2017 Inactive Generic For:COUMADIN 4MG 04/23/2017 9:04:05 AM allopurinol 300 mg t ablet RxNorm: 505651 TAKE 1 TABLET BY MOUT H ONCE DAILY. 04/23/2017 10/19/2017 In active Generic For:ZYLOPRIM 300 MG TABLET 08/2016 9:03:57 AM potassium chloride 2 0 mEq/15 mL oral liquid RxNorm: 248984 Milliliter(s) 30 Milliliter(s) (40mEq) PO daily 03/24/2017 07/21/2017 Inactive Lovenox 30 mg/0.3 mL subcutaneous syringe RxNorm: 825349 0.3 Milliliter(s) SQ Q12H 03/22/2017 03/26/2017 In active Lovenox 30 mg/0.3 mL subcutaneous syringe RxNorm: 092928 0.3 Milliliter(s) SQ Q12H 03/19/2017 03/20/2017 In active Lovenox 30 mg/0.3 mL subcutaneous syringe RxNorm: 293794 0.3 Milliliter(s) SQ Q12H 03/16/2017 03/18/2017 In active clonazepam 0.5 mg ta blet RxNorm: 011298 1 Tablet(s) PO BID 03/02/2017 07/28/2017 Inactive Lovenox 30 mg/0.3 mL subcutaneous syringe RxNorm: 593094 1 injection SQ BID do NOT take the night time dose the day before surgery, or the morning dose the day of surgery 03/01/2017 03/07/2017 Inactive Lovenox 30 mg/0.3 mL subcutaneous syringe RxNorm: 719698 1 injection SQ BID 03/01/2017 02/28/2017 In active Detrol LA 4 mg capsu le,extended release RxNorm: 508369 TAKE 1 CAPSULE BY JAVON TH ONCE DAILY 02/19/2017 05/09/2017 Inactive Generic For:DETROL LA 4MG C AP 02/19/2017 2:36:00 PM hydrocodone 5 mg-humberto taminophen 325 mg tablet RxNorm: 533065 1-2 Tablet(s) PO Q6 P RN 02/04/2017 No Stop Date Active Zetia 10 mg tablet RxNorm: 651552 TAKE 1 TABLET BY MOUTH DAILY 01/25/2017 04/13/2018 Inactive 01/23/2017 9:03:48 AM omeprazole 20 mg cap sean,delayed release RxNorm: 459592 TAKE 1 CAPSULE BY JAVON TH EVERY DAY 01/25/2017 07/21/2017 Inactive Generic For:PRILOSEC 20MG 01/23/2017 9: 03:45 AM Coumadin 4 mg tablet RxNorm: 654356 TAKE 1 TABLET BY MOUTH THREE TIMES PER [place] (WEDNESDAY, WEDNESDAY AND WEDNESDAY) 01/25/2017 04/22/2017 Inactive Generic For:COUMADIN 4MG 01/23/2017 9:03:51 AM sodium bicarbonate 6 50 mg tablet RxNorm: 248526 TAKE 2 TABLETS BY JAVON TH TWICE DAILY 12/24/2016 06/21/2017 In active 12/24/2016 9:09:27 AM Lasix 20 mg tablet RxNorm: 574045 1 Tablet(s) PO daily 12/24/2016 04/22/2017 Inactive Synthroid 137 mcg ta blet RxNorm: 923814 TAKE 1 TABLET BY MOUT H ONCE DAILY 11/24/2016 05/22/2017 In active Generic For:SYNTHROID 137MCG TAB 2016 9:04:37 AM Coumadin 4 mg tablet RxNorm: 143499 TAKE 1 TABLET BY MOUTH THREE TIMES PER [place] (WEDNESDAY, WEDNESDAY AND WEDNESDAY) 11/24/2016 01/22/2017 Inactive Generic For:COUMADIN 4MG 11/24/2016 9:04:41 AM hydrocodone 5 mg-humberto taminophen 325 mg tablet RxNorm: 243394 1-2 Tablet(s) PO Q6 P RN 11/17/2016 02/03/2017 In active Carafate 1 gram tablet RxNorm: 248018 TAKE ONE TABLET BY MOUTH TWICE DAILY 10/27/2016 05/23/2017 In active Generic For:CARAFATE 1GM 10/26/2016 8:3 9:42 AM allopurinol 300 mg t ablet RxNorm: 946689 Tablet(s) TAKE 1 TABL ET BY MOUTH ONCE DAILY. 10/26/2016 04/22/2017 Inactive Lipitor 40 mg tablet RxNorm: 726452 1 Tablet(s) PO daily 09/25/2016 09/19/2017 Inactive Coumadin 4 mg tablet RxNorm: 274515 TAKE 1 TABLET BY MOUTH THREE TIMES PER [place] (WEDNESDAY, WEDNESDAY AND WEDNESDAY) 09/25/2016 11/23/2016 Inactive Generic For:COUMADIN 4MG 09/25/2016 8:55:58 AM Zetia 10 mg tablet RxNorm: 125534 1 Tablet(s) PO daily 09/25/2016 01/22/2017 Inactive gave 1 month of samples clonazepam 0.5 mg ta blet RxNorm: 618298 1 Tablet(s) PO BID 09/21/2016 02/16/2017 Inactive Lasix 20 mg tablet RxNorm: 643636 1 Tablet(s) PO daily 09/15/2016 12/23/2016 Inactive potassium chloride 2 0 mEq/15 mL oral liquid RxNorm: 746732 Milliliter(s) 30 Milliliter(s) (40mEq) PO daily 09/15/2016 01/12/2017 Inactive Lasix 20 mg tablet RxNorm: 663270 2 Tablet(s) PO daily 09/10/2016 09/12/2016 Inactive Lasix 20 mg tablet RxNorm: 384461 1 Tablet(s) PO daily 08/28/2016 08/30/2016 Inactive Lasix 20 mg tablet RxNorm: 235169 1 Tablet(s) PO daily 08/20/2016 08/22/2016 Inactive Detrol LA 4 mg capsu le,extended release RxNorm: 373377 TAKE 1 CAPSULE BY JAVON TH ONCE DAILY 07/27/2016 02/18/2017 Inactive Generic For:DETROL LA 4MG C AP 07/27/2016 9:08:27 AM Coumadin 4 mg tablet RxNorm: 829586 1 Tablet(s) PO 3 x week e th and sun 07/27/2016 09/24/2016 In active omeprazole 20 mg cap sean,delayed release RxNorm: 700408 Capsule(s) PO TAKE 1 CAPSULE BY MOUTH ONCE DAILY 07/27/2016 01/22/2017 Inactive venlafaxine ER 75 mg capsule,extended release 24 hr RxNorm: 997260 1 Capsule(s) PO daily 06/29/2016 06/21/2017 Inactive sodium bicarbonate 6 50 mg tablet RxNorm: 044606 TAKE 2 TABLETS BY JAVON TH TWICE DAILY 06/29/2016 12/23/2016 In active 06/27/2016 9:05:39 AM Coumadin 4 mg tablet RxNorm: 227290 1 Tablet(s) PO 3 x week e thur and sun 06/09/2016 06/08/2016 In active Coumadin 4 mg tablet RxNorm: 389460 1 Tablet(s) PO 3 x week jyothi tony and sun 06/09/2016 07/26/2016 In active Zetia 10 mg tablet RxNorm: 546825 1 Tablet(s) PO daily 06/09/2016 06/08/2016 Inactive gave 1 month of samples Zetia 10 mg tablet RxNorm: 066986 1 Tablet(s) PO daily 06/09/2016 09/24/2016 Inactive gave 1 month of samples Effexor 75 mg tablet RxNorm: 966532 1 Tablet(s) PO daily 06/08/2016 06/28/2016 Inactive spironolactone 25 mg tablet RxNorm: 425497 1 Tablet(s) PO daily 06/08/2016 05/23/2017 Inactive Synthroid 137 mcg ta blet RxNorm: 520274 1 Tablet(s) PO daily 05/07/2016 11/02/2016 Inactive allopurinol 300 mg t ablet RxNorm: 807140 Tablet(s) TAKE 1 TABL ET BY MOUTH ONCE DAILY. 04/28/2016 10/24/2016 Inactive clonazepam 0.5 mg ta blet RxNorm: 238979 1 Tablet(s) PO BID 04/20/2016 09/15/2016 Inactive Flonase Allergy Reli ef 50 mcg/actuation nasal spray,suspension RxNorm: 9634177 1 [place] NASAL BID 04/02/2016 No Stop Date Active Zithromax Z-Thomas 250 mg tablet RxNorm: 865211 Tablet(s) PO 04/02/2016 08/27/2016 Inactive cetirizine 10 mg tablet RxNorm: 4416296 1 Tablet(s) PO daily 04/02/2016 05/01/2016 Inactive Carafate 1 gram tablet RxNorm: 103945 Tablet(s) TAKE 1 TABLET TWICE A DAY FOR 30 DAYS 03/30/2016 10/25/2016 Inactive Generic For:CARAFATE 1GM 02/08/2015 12:3 6:39 PM Plavix 75 mg tablet RxNorm: 767101 1 Tablet(s) PO daily 03/11/2016 09/06/2016 Inactive sodium bicarbonate 6 50 mg tablet RxNorm: 498003 Tablet(s) 2 Tablet(s) PO BID 02/28/2016 06/26/2016 In active omeprazole 20 mg cap sena,delayed release RxNorm: 974076 Capsule(s) PO TAKE 1 CAPSULE BY MOUTH ONCE DAILY 01/31/2016 07/26/2016 Inactive Fish Oil 1,000 mg ca psule RxNorm: 1 Capsule(s) PO BID 01/14/2016 No Stop Date Active Synthroid 137 mcg ta blet RxNorm: 325323 1 Tablet(s) PO daily 01/14/2016 05/06/2016 Inactive Detrol LA 4 mg capsu le,extended release RxNorm: 043965 TAKE 1 CAPSULE BY JAVON TH ONCE DAILY 12/30/2015 07/26/2016 Inactive Generic For:DETROL LA 4MG C AP 12/30/2015 9:11:01 AM potassium chloride 2 0 mEq/15 mL oral liquid RxNorm: 132102 Milliliter(s) 30 Milliliter(s) (40mEq) PO daily 12/02/2015 03/30/2016 Inactive sodium bicarbonate 6 50 mg tablet RxNorm: 332212 Tablet(s) 2 Tablet(s) PO BID 10/31/2015 02/27/2016 In active Lipitor 40 mg tablet RxNorm: 142093 1 Tablet(s) PO daily 10/09/2015 09/24/2016 Inactive sodium bicarbonate 6 50 mg tablet RxNorm: 608093 2 Tablet(s) PO BID 10/01/2015 10/30/2015 Inactive allopurinol 300 mg t ablet RxNorm: 892353 TAKE 1 TABLET BY MOUT H ONCE DAILY. 10/01/2015 04/27/2016 In active Generic For:ZYLOPRIM 300 MG TABLET 09/19 9:21:15 AM clonazepam 0.5 mg ta blet RxNorm: 932623 1 Tablet(s) PO BID 09/30/2015 04/19/2016 Inactive Coumadin 5 mg tablet RxNorm: 179314 1 Tablet(s) PO daily 09/27/2015 05/31/2017 Inactive Generic For:COUMADIN 5MG TAB N O T I C E PRESCRIPTION PREVIOUSLY AUTHORIZED BY DOCTOR:BOBBY ZULETA Synthroid 125 mcg ta blet RxNorm: 891781 1 Tablet(s) PO daily 09/27/2015 09/26/2015 Inactive Synthroid 125 mcg ta blet RxNorm: 279903 1 Tablet(s) PO daily 09/27/2015 01/13/2016 Inactive Carafate 1 gram tablet RxNorm: 179836 Tablet(s) TAKE 1 TABLET TWICE A DAY FOR 30 DAYS 09/02/2015 03/29/2016 Inactive Generic For:CARAFATE 1GM 02/08/2015 12:3 6:39 PM sodium bicarbonate 6 50 mg tablet RxNorm: 656980 2 Tablet(s) PO BID 09/02/2015 09/30/2015 Inactive Prilosec 20 mg capsu le,delayed release RxNorm: 764549 TAKE 1 CAPSULE BY JAVON TH ONCE DAILY 08/02/2015 01/28/2016 Inactive Generic For:PRILOSEC 20MG 08/02/2015 10:03:09 AM N O T I C E PRESCRIPTION PREVIOUSLY AUTHORIZED BY DOCTOR:BOBBY ZULETA Zyrtec 10 mg capsule RxNorm: 4684125 1 Capsule(s) PO daily 07/15/2015 08/13/2015 Inactive Keflex 500 mg capsule RxNorm: 028362 1 Capsule(s) PO TID 07/15/2015 07/21/2015 Inactive cetirizine 10 mg cap sean RxNorm: 4020850 1 Capsule(s) PO daily 07/15/2015 08/13/2015 Inactive hydrocodone 5 mg-humberto taminophen 325 mg tablet RxNorm: 353160 1-2 Tablet(s) PO Q6 P RN 06/10/2015 11/16/2016 In active sodium bicarbonate 6 50 mg tablet RxNorm: 484444 2 Tablet(s) PO BID 06/03/2015 08/31/2015 Inactive Detrol LA 4 mg capsu le,extended release RxNorm: 055585 TAKE 1 CAPSULE BY JAVON TH ONCE DAILY 06/03/2015 12/29/2015 Inactive Generic For:DETROL LA 4MG C AP N O T I C E PRESCRIPTION PREVIOUSLY AUTHORIZED BY DOCTOR:BOBBY ZULETA atenolol 50 mg tablet RxNorm: 297044 1 Tablet(s) PO daily TAKE 1 TABLET BY MO UTH DAILY 05/07/2015 08/23/2017 Inactive Generic For:TENORMIN 50MG 05/04/2015 9:07:22 AM spironolactone 25 mg tablet RxNorm: 942076 1 Tablet(s) PO daily 05/06/2015 06/07/2016 Inactive venlafaxine ER 75 mg capsule,extended release 24 hr RxNorm: 374634 1 Capsule(s) PO daily 05/04/2015 06/28/2016 Inactive atenolol 50 mg tablet RxNorm: 164761 TAKE 1 TABLET BY MOUTH DAILY 05/04/2015 05/06/2015 Inactive Generic For:TENORMIN 50MG 05/04/2015 9: 07:22 AM Synthroid 150 mcg ta blet RxNorm: 004581 TAKE 1 TABLET BY MOUT H ONCE DAILY. 04/05/2015 09/26/2015 In active Generic For:SYNTHROID 150MCG TAB 2014 4:45:40 PM N O T I C E PRESCRIPTION PREVIOUSLY AUTHORIZED BY DOCTOR:BOBBY ZULETA Effexor 75 mg tablet RxNorm: 347888 1 Tablet(s) PO daily 04/05/2015 07/03/2015 Inactive Coumadin 5 mg tablet RxNorm: 131795 TAKE 1 AND 1/2 TABLETS BY MOUTH ONCE MYRANDA LY 04/04/2015 09/26/2015 In active Generic For:COUMADIN 5MG TAB N O T I C E PRESCRIPTION PREVIOUSLY AUTHORIZED BY DOCTOR:BOBBY ZULETA clonazepam 0.5 mg ta blet RxNorm: 288362 1 Tablet(s) PO BID 03/13/2015 11/05/2015 Inactive sodium bicarbonate 6 50 mg tablet RxNorm: 594685 2 Tablet(s) PO BID 03/08/2015 06/02/2015 Inactive allopurinol 300 mg t ablet RxNorm: 137587 TAKE 1 TABLET BY MOUT H ONCE DAILY. 03/05/2015 09/30/2015 In active N O T I C E PRESCRIPTION PREVIOUSLY A UTHORIZED BY DOCTOR:BOBBY ZULETA Plavix 75 mg tablet RxNorm: 139178 1 Tablet(s) PO daily 02/12/2015 09/09/2015 Inactive clonazepam 0.5 mg ta blet RxNorm: 760250 1 Tablet(s) PO BID 02/11/2015 03/11/2015 Inactive Carafate 1 gram tablet RxNorm: 043314 TAKE 1 TABLET TWICE A DAY FOR 30 DAYS 02/08/2015 02/07/2015 In active Generic For:CARAFATE 1GM 02/08/2015 12:3 6:39 PM Carafate 1 gram tablet RxNorm: 517773 Tablet(s) TAKE 1 TABLET TWICE A DAY FOR 30 DAYS 02/08/2015 09/01/2015 Inactive Generic For:CARAFATE 1GM 02/08/2015 12:3 6:39 PM potassium chloride 2 0 mEq/15 mL oral liquid RxNorm: 080956 30 Milliliter(s) (40m Eq) PO daily 02/05/2015 12/01/2015 Inactive atenolol 50 mg tablet RxNorm: 665823 1 Tablet(s) PO daily 02/04/2015 05/03/2015 Inactive [SAVINGS FOR NON-COVERED DRUGS -- BIN:3584, PCN: ASPROD1, Group: XXXXX, ID# XXXXXXX, Questions: . THIS IS NOT INSURANCE.] potassium chloride 2 0 mEq/15 mL oral liquid RxNorm: 147983 30 Milliliter(s) (40m Eq) PO daily 01/08/2015 02/04/2015 Inactive potassium chloride 2 0 mEq/15 mL oral liquid RxNorm: 931395 30 Milliliter(s) (40m Eq) PO daily 12/07/2014 01/07/2015 Inactive atenolol 50 mg tablet RxNorm: 375744 1 Tablet(s) PO daily 11/09/2014 11/08/2014 Inactive atenolol 50 mg tablet RxNorm: 202984 1 Tablet(s) PO daily 11/09/2014 02/03/2015 Inactive [SAVINGS FOR NON-COVERED DRUGS -- BIN:3584, PCN: ASPROD1, Group: XXXXX, ID# [id number], Questions: . THIS IS NOT INSURANCE.] Voltaren 1 % topical gel RxNorm: 700499 TOP No St art Date Active verapamil ER (HS) 24 0 mg tablet,extended release 24 hr RxNorm: 854446 1 Tablet(s) PO daily No Start Date Active aspirin 81 mg tablet RxNorm: 106690 1 Tablet(s) PO daily No Start Date Active Zofran 4 mg tablet RxNorm: 264144 1 Tablet(s) PO PRN No Start Date Active B12 1000 mcg RxNorm: 1 Tablet(s) PO daily No Start Date Active magnesium oxide 400 mg capsule RxNorm: 248149 2 Capsule(s) PO BID No Start Date Active Synthroid 150 mcg ta blet RxNorm: 532878 1 Tablet(s) PO daily No Start Date 04/04/2015 Inactive Coumadin 5 mg tablet RxNorm: 295391 1 Tablet(s) PO daily No Start Date 04/03/2015 Inactive cranberry 1,000 mg c apsule RxNorm: 133967 1 Capsule(s) PO daily No Start Date 04/13/2018 Inactive allopurinol 300 mg t ablet RxNorm: 323729 1 Tablet(s) PO daily No Start Date 03/04/2015 Inactive Prilosec 20 mg capsu le,delayed release RxNorm: 674099 1 Capsule(s) PO PRN No Start Date 08/01/2015 Inactive potassium chloride 2 0 mEq/15 mL oral liquid RxNorm: 640286 30 Milliliter(s) (40m Eq) PO daily No Start Date 12/06/2014 Inactive atenolol 50 mg tablet RxNorm: 752728 1 Tablet(s) PO daily No Start Date 08/29/2017 Inactive Lipitor 40 mg tablet RxNorm: 081292 1 Tablet(s) PO daily No Start Date 09/19/2017 Inactive Effexor 75 mg tablet RxNorm: 220007 1 Tablet(s) PO daily No Start Date 04/04/2015 Inactive Carafate 1 gram tablet RxNorm: 823663 1 Tablet(s) PO BID No Start Date 02/07/2015 Inactive clonazepam 0.5 mg ta blet RxNorm: 363851 1 Tablet(s) PO BID No Start Date 02/10/2015 Inactive Plavix 75 mg tablet RxNorm: 584373 1 Tablet(s) PO daily No Start Date 02/11/2015 Inactive sodium bicarbonate 6 50 mg tablet RxNorm: 533083 2 Tablet(s) PO BID No Start Date 09/01/2015 Inactive Lovenox 30 mg/0.3 mL subcutaneous syringe RxNorm: 616596 0.3 Milliliter(s) SQ Q12H No Start Date 03/15/2017 Inactive Fish Oil 1,000 mg ca psule RxNorm: 1 Capsule(s) PO daily No Start Date 01/13/2016 Inactive Detrol LA 4 mg capsu le,extended release RxNorm: 374660 1 Capsule(s) PO daily No Start Date 06/02/2015 Inactive Medication Administered No Medication Administered data Immunizations Vaccine Codes Date Status SHINGARIX CVX: 121 03/23 completed Assessments Condition Codes Effectiv e Dates Hypothyroidism, unspecified ICD-10: E03.9 ICD-9: 244.9 04/14/2018 Essential (primary) hypertension ICD -10: I10 ICD-9: 401.9 04/14/2018 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 89 ICD-9: 477.8 04/02/2016 Acute laryngopharyngitis ICD-10: J06 .0 ICD-9: 465.0 04/02/2016 Left upper quadrant pain ICD-10: R10 .12 ICD-9: 789.02 01/14/2016 Pain in left shoulder ICD-10: M25.51 2 ICD-9: 719.41 10/02/2015 Body mass index (BMI) 40.0-44.9, adult ICD-10: Z68.41 ICD-9: V85.41 10/02/2015 Pain in left leg ICD-10: M79.605 ICD-9: 729.5 07/15/2015 Pain in right shoulder ICD-10: M25.5 11 ICD-9: 719.41 06/10/2015 ESSENTIAL HYPERTENSION ICD-9: 401.9 01/22/2015 ENCNTR LONG-RX USE NEC ICD-9: V58.69 01/22/2015 HYPERLIPIDEMIA ICD-9: 272.4 01/22/2015 Vitamin B12 deficiency ICD-9: 266.2 01/22/2015 HYPOTHYROIDISM ICD-9: 244.9 01/22/2015 Snoring ICD-9: 786.09 Status post gastric surgery [...] Code Item Item Code Result Date Pt [id number] PT 18.4 seconds 06/17/2018 Pt Yfp7410 INR 1.6 06/17/2018 Pt Oil1496 Low Intensity - 1.5-2.0 06/17/2018 Pt Ftl3344 Mod intensity - 2.0-3.0 06/17/2018 Pt Jke7631 Hi intensity - 3.0-4.0 06/17/2018 Sed Rate [...] 30.4 pg 06/08/2018 Cbc With Differential Ord2 [place]% 9.4 % 06/08/2018 Cbc With Differential Ord2 [...] 1.20 K/ul 06/08/2018 Cbc With Differential Ord2 [place] ABS# 0.5 K/ul 06/08/2018 Cbc With Differential Ord2 Eos ABS# 0.1 K/ul 06/08/2018 Cbc With Differential Ord2 Baso ABS# 0.1 K/ul 06/08/2018 C-Reactive Protein Qnt Crqnt CRP 0.1 mg/dl 06/08/2018 Pt Cpi6076 PT 17.6 seconds 06/08/2018 Pt Zmr7789 INR 1.5 06/08/2018 Pt Vsg9909 Low Intensity - 1.5-2.0 06/08/2018 Pt Ufe6946 Mod intensity - 2.0-3.0 06/08/2018 Pt Rzt3424 Hi intensity - 3.0-4.0 06/08/2018 Pt Urb1304 PT 16.8 seconds 05/10/2018 Pt Llp7884 INR 1.4 05/10/2018 Pt Nyu3050 Low Intensity - 1.5-2.0 05/10/2018 Pt Dcj6525 Mod intensity - 2.0-3.0 05/10/2018 Pt Xzb4566 Hi intensity - 3.0-4.0 05/10/2018 Pt Cul6480 PT 16.7 seconds 05/04/2018 Pt Vxe8252 INR 1.4 05/04/2018 Pt Xvc2075 Low Intensity - 1.5-2.0 05/04/2018 Pt Jfk0057 Mod intensity - 2.0-3.0 05/04/2018 Pt Dxd4387 Hi intensity - 3.0-4.0 05/04/2018 Free T4 Iwo803 FREE T4 1.09 ng/dL 04/14/2018 Tsh Ord6 TSH (3rd IS) 2.36 uIU/mL 04/14/2018 Pt Mgu7145 PT 20.3 seconds 04/14/2018 Pt Hcx6486 INR 1.8 04/14/2018 Pt Dta8649 Low Intensity - 1.5-2.0 04/14/2018 Pt Fqf5305 Mod intensity - 2.0-3.0 04/14/2018 Pt Fqu3536 Hi intensity - 3.0-4.0 04/14/2018 Lipid Ord30 CHOL 149 mg/dL 04/14/2018 Lipid Ord30 HDL 49.0 mg/dl 04/14/2018 Lipid Ord30 TRIG 161 mg/dL 04/14/2018 Lipid Ord30 LDL 68 mg/dL 04/14/2018 Lipid Ord30 C/HDL 3.0 Ratio 04/14/2018 %Hba1C Fgf394 % HbA1c 57591-8 5.9 % 04/14/2018 %Hba1C Pyd486 Gluc Ave 123 mg/dL 04/14/2018 Comp Metabolic Fbm627 NA 140 mEq/L 04/14/2018 Comp Metabolic Xyo290 K 4.1 mEq/L 04/14/2018 Comp Metabolic Jrc375 CL 105 mEq/L 04/14/2018 Comp Metabolic Ozt163 CO2 28.0 mEq/L 04/14/2018 Comp Metabolic Xra109 AN ION GAP 11 04/14/2018 Comp Metabolic Ayc342 GL UCOSE 112 mg/dL 04/14/2018 Comp Metabolic Tcz820 Cr eat 1.0 mg/dL 04/14/2018 Comp Metabolic Rwl144 eG FR 58 ml/min/1.73m2 04/14 Comp Metabolic Cpz280 BUN 20 mg/dL 04/14/2018 Comp Metabolic Uby945 B/ C Ratio 20.2 Ratio 04/14/2018 Comp Metabolic Ucj266 CA LCIUM 10.0 mg/dL 04/14/2018 Comp Metabolic Vxj009 AL K PHOS 51 U/L 04/14/2018 Comp Metabolic Klr119 T(SGOT) 24 U/L 04/14/2018 Comp Metabolic Qxf781 AL T(SGPT) 21 U/L 04/14/2018 Comp Metabolic Wpu897 BI LI T 0.8 mg/dL 04/14/2018 Comp Metabolic Gqg393 AL BUMIN 4.2 g/dL 04/14/2018 Comp Metabolic Tkd797 TP RO 7.1 g/dL 04/14/2018 Comp Metabolic Vxb139 GL OB 2.9 g/dL 04/14/2018 Comp Metabolic Opm632 A/ G Ratio 1.5 Ratio 04/14/2018 Comp Metabolic Igv432 Os mo 283 mOsmo 04/14/2018 Cbc With [...] 30.7 pg 04/14/2018 Cbc With Differential Ord2 [place]% 10.6 % 04/14/2018 Cbc With Differential Ord2 [...] 1.18 K/ul 04/14/2018 Cbc With Differential Ord2 [place] ABS# 0.5 K/ul 04/14/2018 Cbc With Differential Ord2 Eos ABS# 0.2 K/ul 04/14/2018 Cbc With Differential Ord2 Baso ABS# 0.1 K/ul 04/14/2018 Pt Ksi5255 PT 29.3 seconds 02/11/2018 Pt Gqz1905 INR 2.8 02/11/2018 Pt Bqm4799 Low Intensity - 1.5-2.0 02/11/2018 Pt Qlo0283 Mod intensity - 2.0-3.0 02/11/2018 Pt Pdf5602 Hi intensity - 3.0-4.0 02/11/2018 Comp Metabolic Zmj670 NA 141 mEq/L 01/05/2018 Comp Metabolic Zoo593 K 3.7 mEq/L 01/05/2018 Comp Metabolic Tjt014 CL 102 mEq/L 01/05/2018 Comp Metabolic Bbg220 CO2 29.0 mEq/L 01/05/2018 Comp Metabolic Cln189 AN ION GAP 14 01/05/2018 Comp Metabolic Sag994 GL UCOSE 136 mg/dL 01/05/2018 Comp Metabolic Sbg354 Cr eat 1.0 mg/dL 01/05/2018 Comp Metabolic Kuz713 eG FR 61 ml/min/1.73m2 01/05 Comp Metabolic Pro658 BUN 22 mg/dL 01/05/2018 Comp Metabolic Hrq787 B/ C Ratio 22.9 Ratio 01/05/2018 Comp Metabolic Upm418 CA LCIUM 9.7 mg/dL 01/05/2018 Comp Metabolic Nda985 AL K PHOS 57 U/L 01/05/2018 Comp Metabolic Qbc043 T(SGOT) 21 U/L 01/05/2018 Comp Metabolic Ehx831 AL T(SGPT) 19 U/L 01/05/2018 Comp Metabolic Kzl583 BI LI T 0.9 mg/dL 01/05/2018 Comp Metabolic Yth799 AL BUMIN 4.1 g/dL 01/05/2018 Comp Metabolic Jkl090 TP RO 7.1 g/dL 01/05/2018 Comp Metabolic Hxl998 GL OB 3.0 g/dL 01/05/2018 Comp Metabolic Irl392 A/ G Ratio 1.4 Ratio 01/05/2018 Comp Metabolic Elz748 Os mo 287 mOsmo 01/05/2018 Free T4 Djd945 FREE T4 1.05 ng/dL 01/05/2018 %Hba1C Ejb697 % HbA1c 14661-4 6.0 % 01/05/2018 %Hba1C Igx524 Gluc Ave 126 mg/dL 01/05/2018 Cbc With [...] 30.6 pg 01/05/2018 Cbc With Differential Ord2 [place]% 10.5 % 01/05/2018 Cbc With Differential Ord2 [...] 1.27 K/ul 01/05/2018 Cbc With Differential Ord2 [place] ABS# 0.5 K/ul 01/05/2018 Cbc With Differential Ord2 Eos ABS# 0.2 K/ul 01/05/2018 Cbc With Differential Ord2 Baso ABS# 0.1 K/ul 01/05/2018 Pt Qoo5918 PT 20.7 seconds 01/05/2018 Pt Uew6353 INR 1.8 01/05/2018 Pt Yuq2694 Low Intensity - 1.5-2.0 01/05/2018 Pt Zhz3862 Mod intensity - 2.0-3.0 01/05/2018 Pt Lmd4895 Hi intensity - 3.0-4.0 01/05/2018 Tsh Ord6 TSH (3rd IS) 2.34 uIU/mL 01/05/2018 Lipid Ord30 CHOL 156 mg/dL 01/05/2018 Lipid Ord30 HDL 48.0 mg/dl 01/05/2018 Lipid Ord30 TRIG 207 mg/dL 01/05/2018 Lipid Ord30 LDL 67 mg/dL 01/05/2018 Lipid Ord30 C/HDL 3.3 Ratio 01/05/2018 Pt Loy3197 PT 28.3 seconds 11/26/2017 Pt Bjd0581 INR 2.6 11/26/2017 Pt Voi8090 Low Intensity - 1.5-2.0 11/26/2017 Pt Msm4431 Mod intensity - 2.0-3.0 11/26/2017 Pt Wvq1775 Hi intensity - 3.0-4.0 11/26/2017 Pt Wwb2699 PT 36.5 seconds 11/19/2017 Pt Nml1488 INR 3.6 11/19/2017 Pt Rcw4120 Low Intensity - 1.5-2.0 11/19/2017 Pt Xzi9238 Mod intensity - 2.0-3.0 11/19/2017 Pt Sys2706 Hi intensity - 3.0-4.0 11/19/2017 Pt Pil4891 PT 22.9 seconds 10/15/2017 Pt Oom0233 INR 2.0 10/15/2017 Pt Mud3405 Low Intensity - 1.5-2.0 10/15/2017 Pt Pvk0270 Mod intensity - 2.0-3.0 10/15/2017 Pt Xps1458 Hi intensity - 3.0-4.0 10/15/2017 Pt Ajs1043 PT 25.9 seconds 10/01/2017 Pt Faq1741 INR 2.4 10/01/2017 Pt Aho5226 Low Intensity - 1.5-2.0 10/01/2017 Pt Asx1199 Mod intensity - 2.0-3.0 10/01/2017 Pt Xqj1274 Hi intensity - 3.0-4.0 10/01/2017 Pt Xbl3771 PT 20.6 seconds 09/24/2017 Pt Qml8315 INR 1.8 09/24/2017 Pt Ftw2908 Low Intensity - 1.5-2.0 09/24/2017 Pt Hjm1438 Mod intensity - 2.0-3.0 09/24/2017 Pt Lyh3874 Hi intensity - 3.0-4.0 09/24/2017 Pt Jsy6909 PT 21.0 seconds 09/15/2017 Pt Usu6555 INR 1.8 09/15/2017 Pt Umr9142 Low Intensity - 1.5-2.0 09/15/2017 Pt Uoi4694 Mod intensity - 2.0-3.0 09/15/2017 Pt Nws5233 Hi intensity - 3.0-4.0 09/15/2017 Pt Evj9949 PT 19.0 seconds 09/03/2017 Pt Eel4677 INR 1.6 09/03/2017 Pt Qie3682 Low Intensity - 1.5-2.0 09/03/2017 Pt Oay7380 Mod intensity - 2.0-3.0 09/03/2017 Pt Zix0049 Hi intensity - 3.0-4.0 09/03/2017 Pt Odd5352 PT 17.6 seconds 08/23/2017 Pt Moa6772 INR 1.5 08/23/2017 Pt Hkw6897 Low Intensity - 1.5-2.0 08/23/2017 Pt Ama2064 Mod intensity - 2.0-3.0 08/23/2017 Pt Rcs4950 Hi intensity - 3.0-4.0 08/23/2017 Pt Hwk1340 PT 12.7 seconds 08/20/2017 Pt Akq9646 INR 1.0 08/20/2017 Pt Mfx1526 Low Intensity - 1.5-2.0 08/20/2017 Pt Kqt5256 Mod intensity - 2.0-3.0 08/20/2017 Pt Zty9312 Hi intensity - 3.0-4.0 08/20/2017 Pt Llf7046 PT 12.9 seconds 08/17/2017 Pt Ckv2088 INR 1.0 08/17/2017 Pt Zbl4474 Low Intensity - 1.5-2.0 08/17/2017 Pt Waw8081 Mod intensity - 2.0-3.0 08/17/2017 Pt Idx0781 Hi intensity - 3.0-4.0 08/17/2017 Pt Xxx6645 PT 18.5 seconds 08/10/2017 Pt Kvf4220 INR 1.6 08/10/2017 Pt Dyx8020 Low Intensity - 1.5-2.0 08/10/2017 Pt Yyc9519 Mod intensity - 2.0-3.0 08/10/2017 Pt Obq5475 Hi intensity - 3.0-4.0 08/10/2017 Tsh Ord6 hTSH II 2.08 uIU/mL 05/27/2017 Cbc With Differential Ord2 WBC 7.53 K/ul 05/27/2017 Cbc With Differential Ord2 RBC 4.60 M/ul 05/27/2017 Cbc With Differential Ord2 HGB 13.5 g/dl 05/27/2017 Cbc With Differential Ord2 Neut% 72.9 % 05/27/2017 Cbc With Differential Ord2 HCT 40.4 % 05/27/2017 Cbc With Differential Ord2 Lymph% 14.7 % 05/27/2017 Cbc With Differential Ord2 MCV 87.8 fl 05/27/2017 Cbc With Differential Ord2 MCH 29.3 pg 05/27/2017 Cbc With Differential Ord2 [place]% 8.1 % 05/27/2017 Cbc With Differential Ord2 Eos% 3.2 % 05/27/2017 Cbc With Differential Ord2 MCHC 33.4 pg 05/27/2017 Cbc With Differential Ord2 PLT 239 K/ul 05/27/2017 Cbc With Differential Ord2 Baso% 1.1 % 05/27/2017 Cbc With Differential Ord2 Neut ABS# 5.49 K/ul 05/27/2017 Cbc With Differential Ord2 RDW 14.4 % 05/27/2017 Cbc With Differential Ord2 Lymph ABS# 1.11 K/ul 05/27/2017 Cbc With Differential Ord2 [place] ABS# 0.6 K/ul 05/27/2017 Cbc With Differential Ord2 Eos ABS# 0.2 K/ul 05/27/2017 Cbc With Differential Ord2 Baso ABS# 0.1 K/ul 05/27/2017 Pt Hfu8178 PT 28.2 seconds 05/27/2017 Pt Vtr8849 INR 2.6 05/27/2017 Pt Nbb8090 Low Intensity - 1.5-2.0 05/27/2017 Pt Ohk1369 Mod intensity - 2.0-3.0 05/27/2017 Pt Lai7840 Hi intensity - 3.0-4.0 05/27/2017 Lipid Ord30 CHOL 167 mg/dL 05/27/2017 Lipid Ord30 HDL 49.0 mg/dl 05/27/2017 Lipid Ord30 TRIG 347 mg/dL 05/27/2017 Lipid Ord30 LDL 49 mg/dL 05/27/2017 Lipid Ord30 C/HDL 3.4 Ratio 05/27/2017 Magnesium Ord90 Mag 1.4 mg/dL 05/27/2017 %Hba1C Frl024 % HbA1c 45697-7 5.9 % 05/27/2017 %Hba1C Wrq705 Gluc Ave 123 mg/dL 05/27/2017 Comp Metabolic Qfl504 NA 138 mEq/L 05/27/2017 Comp Metabolic Kax954 K 4.1 mEq/L 05/27/2017 Comp Metabolic Rxx683 CL 101 mEq/L 05/27/2017 Comp Metabolic Plf375 CO2 31.0 mEq/L 05/27/2017 Comp Metabolic Oeg061 AN ION GAP 10 05/27/2017 Comp Metabolic Shj141 GL UCOSE 117 mg/dL 05/27/2017 Comp Metabolic Xub734 Cr eat 0.9 mg/dL 05/27/2017 Comp Metabolic Ajs514 eG FR 62 ml/min/1.73m2 05/27 Comp Metabolic Sam689 BUN 25 mg/dL 05/27/2017 Comp Metabolic Fhk854 B/ C Ratio 26.6 Ratio 05/27/2017 Comp Metabolic Iky399 CA LCIUM 9.5 mg/dL 05/27/2017 Comp Metabolic Sid347 AL K PHOS 73 U/L 05/27/2017 Comp Metabolic Imr739 T(SGOT) 18 U/L 05/27/2017 Comp Metabolic Xjg554 AL T(SGPT) 12 U/L 05/27/2017 Comp Metabolic Vcv601 BI LI T 0.5 mg/dL 05/27/2017 Comp Metabolic Ral137 AL BUMIN 4.1 g/dL 05/27/2017 Comp Metabolic Huf455 TP RO 7.1 g/dL 05/27/2017 Comp Metabolic Vhg054 GL OB 3.0 g/dL 05/27/2017 Comp Metabolic Crc638 A/ G Ratio 1.3 Ratio 05/27/2017 Comp Metabolic Pke607 Os mo 281 mOsmo 05/27/2017 Free T4 Vjk048 FREE T4 0.91 ng/dL 05/27/2017 Pt Cqv0114 PT 29.2 seconds 04/16/2017 Pt Ead2620 INR 2.7 04/16/2017 Pt Ddb3542 Low Intensity - 1.5-2.0 04/16/2017 Pt Llu7685 Mod intensity - 2.0-3.0 04/16/2017 Pt Bip7168 Hi intensity - 3.0-4.0 04/16/2017 Pt Paf2287 PT 30.7 seconds 03/31/2017 Pt Aas7034 INR 2.9 03/31/2017 Pt Koe9294 Low Intensity - 1.5-2.0 03/31/2017 Pt Yyq1328 Mod intensity - 2.0-3.0 03/31/2017 Pt Xhy6634 Hi intensity - 3.0-4.0 03/31/2017 Pt Hdq2169 PT 21.3 seconds 03/26/2017 Pt Klj3178 INR 1.9 03/26/2017 Pt Trs5666 Low Intensity - 1.5-2.0 03/26/2017 Pt Sdj5633 Mod intensity - 2.0-3.0 03/26/2017 Pt Gzv3120 Hi intensity - 3.0-4.0 03/26/2017 Pt Wvd3117 PT 19.8 seconds 03/22/2017 Pt Daq0855 INR 1.7 03/22/2017 Pt Cyn8998 Low Intensity - 1.5-2.0 03/22/2017 Pt Uek6899 Mod intensity - 2.0-3.0 03/22/2017 Pt Iqy2490 Hi intensity - 3.0-4.0 03/22/2017 Pt Llx4358 PT 15.6 seconds 03/19/2017 Pt Ozp4835 INR 1.3 03/19/2017 Pt Tbf8872 Low Intensity - 1.5-2.0 03/19/2017 Pt Xzw7624 Mod intensity - 2.0-3.0 03/19/2017 Pt Dzz7875 Hi intensity - 3.0-4.0 03/19/2017 Pt Ywb4869 PT 13.7 seconds 03/15/2017 Pt Sta9584 INR 1.1 03/15/2017 Pt Nhs4024 Low Intensity - 1.5-2.0 03/15/2017 Pt Hob6538 Mod intensity - 2.0-3.0 03/15/2017 Pt Oes6460 Hi intensity - 3.0-4.0 03/15/2017 Pt Rpv2487 PT 25.8 seconds 01/28/2017 Pt Dqz1878 INR 2.4 01/28/2017 Pt Nru4563 Low Intensity - 1.5-2.0 01/28/2017 Pt Zqm7578 Mod intensity - 2.0-3.0 01/28/2017 Pt Hhe2189 Hi intensity - 3.0-4.0 01/28/2017 %Hba1C Ibc545 % HbA1c 56578-9 6.4 % 10/23/2016 %Hba1C Oeg145 Gluc Ave 137 mg/dL 10/23/2016 Comp Metabolic Wjg200 NA 138 mEq/L 10/23/2016 Comp Metabolic Hnv168 K 3.4 mEq/L 10/23/2016 Comp Metabolic Bzk237 CL 100 mEq/L 10/23/2016 Comp Metabolic Aqj421 CO2 30.0 mEq/L 10/23/2016 Comp Metabolic Bag905 AN ION GAP 11 10/23/2016 Comp Metabolic Dwj374 GL UCOSE 139 mg/dL 10/23/2016 Comp Metabolic Ton423 Cr eat 0.9 mg/dL 10/23/2016 Comp Metabolic Ygs493 eG FR 62 ml/min/1.73m2 10/23 Comp Metabolic Mqj231 BUN 22 mg/dL 10/23/2016 Comp Metabolic Ujj926 B/ C Ratio 23.4 Ratio 10/23/2016 Comp Metabolic Qzn497 CA LCIUM 8.7 mg/dL 10/23/2016 Comp Metabolic Qxt910 AL K PHOS 66 U/L 10/23/2016 Comp Metabolic Xpl885 T(SGOT) 20 U/L 10/23/2016 Comp Metabolic Zxk298 AL T(SGPT) 10 U/L 10/23/2016 Comp Metabolic Cbh310 BI LI T 0.5 mg/dL 10/23/2016 Comp Metabolic Lbp621 AL BUMIN 3.5 g/dL 10/23/2016 Comp Metabolic Ynu759 TP RO 6.3 g/dL 10/23/2016 Comp Metabolic Oyu653 GL OB 2.8 g/dL 10/23/2016 Comp Metabolic Bya518 A/ G Ratio 1.3 Ratio 10/23/2016 Comp Metabolic Hzl615 Os mo 281 mOsmo 10/23/2016 Pt Vsg0816 PT 26.8 seconds 10/23/2016 Pt Jms3693 INR 2.7 10/23/2016 Pt Gxi4096 Low Intensity - 1.5-2.0 10/23/2016 Pt Ann2859 Mod intensity - 2.0-3.0 10/23/2016 Pt Iqj5178 Hi intensity - 3.0-4.0 10/23/2016 Pt Nqy6208 PT 28.3 seconds 09/25/2016 Pt Cig9237 INR 2.8 09/25/2016 Pt Cya8662 Low Intensity - 1.5-2.0 09/25/2016 Pt Zzb8290 Mod intensity - 2.0-3.0 09/25/2016 Pt Szn3174 Hi intensity - 3.0-4.0 09/25/2016 Metabolic Ord15 [...] Metabolic Ord15 CALCIUM 8.8 mg/dL 09/25/2016 Pt Rsz6046 PT 30.6 seconds 09/11/2016 Pt Gzu7608 INR 3.2 09/11/2016 Pt Gca5052 Low Intensity - 1.5-2.0 09/11/2016 Pt Srv6845 Mod intensity - 2.0-3.0 09/11/2016 Pt Lun8050 Hi intensity - 3.0-4.0 09/11/2016 Comp Metabolic Kjx977 NA 138 mEq/L 09/11/2016 Comp Metabolic Cmg517 K 4.4 mEq/L 09/11/2016 Comp Metabolic Pvf120 CL 103 mEq/L 09/11/2016 Comp Metabolic Fjv136 CO2 31.0 mEq/L 09/11/2016 Comp Metabolic Mvi778 AN ION GAP 8 09/11/2016 Comp Metabolic Yhh900 GL UCOSE 146 mg/dL 09/11/2016 Comp Metabolic Axa316 Cr eat 1.0 mg/dL 09/11/2016 Comp Metabolic Sxx887 eG FR 60 ml/min/1.73m2 09/11 Comp Metabolic Fte460 BUN 16 mg/dL 09/11/2016 Comp Metabolic Nak020 B/ C Ratio 16.5 Ratio 09/11/2016 Comp Metabolic Dhz593 CA LCIUM 8.7 mg/dL 09/11/2016 Comp Metabolic Fkl516 AL K PHOS 52 U/L 09/11/2016 Comp Metabolic Mnh243 T(SGOT) 19 U/L 09/11/2016 Comp Metabolic Gnb909 AL T(SGPT) 11 U/L 09/11/2016 Comp Metabolic Fgi343 BI LI T 0.7 mg/dL 09/11/2016 Comp Metabolic Bdb361 AL BUMIN 3.3 g/dL 09/11/2016 Comp Metabolic Gyt886 TP RO 5.8 g/dL 09/11/2016 Comp Metabolic Toh452 GL OB 2.5 g/dL 09/11/2016 Comp Metabolic Ysj466 A/ G Ratio 1.3 Ratio 09/11/2016 Comp Metabolic Grm230 Os mo 280 mOsmo 09/11/2016 C-Reactive Protein Qnt Crqnt CRP 0.1 mg/dl 08/21/2016 Comp Metabolic Qwz222 NA 139 mEq/L 08/21/2016 Comp Metabolic Kqe313 K 4.1 mEq/L 08/21/2016 Comp Metabolic Ppt229 CL 102 mEq/L 08/21/2016 Comp Metabolic Wwt559 CO2 30.0 mEq/L 08/21/2016 Comp Metabolic Hfe194 AN ION GAP 11 08/21/2016 Comp Metabolic Not010 GL UCOSE 148 mg/dL 08/21/2016 Comp Metabolic Ppw341 Cr eat 1.0 mg/dL 08/21/2016 Comp Metabolic Lhy009 eG FR 55 ml/min/1.73m2 08/21 Comp Metabolic Wwm141 BUN 21 mg/dL 08/21/2016 Comp Metabolic Flg993 B/ C Ratio 20.2 Ratio 08/21/2016 Comp Metabolic Tci598 CA LCIUM 9.4 mg/dL 08/21/2016 Comp Metabolic Jom462 AL K PHOS 63 U/L 08/21/2016 Comp Metabolic Wcu395 T(SGOT) 23 U/L 08/21/2016 Comp Metabolic Qvd344 AL T(SGPT) 16 U/L 08/21/2016 Comp Metabolic Zwu953 BI LI T 0.6 mg/dL 08/21/2016 Comp Metabolic Let377 AL BUMIN 3.9 g/dL 08/21/2016 Comp Metabolic Cmh863 TP RO 6.8 g/dL 08/21/2016 Comp Metabolic Gfl756 GL OB 2.9 g/dL 08/21/2016 Comp Metabolic Tmq628 A/ G Ratio 1.4 Ratio 08/21/2016 Comp Metabolic Bmu134 Os mo 283 mOsmo 08/21/2016 Sed Rate Ord21 ESR 16 mm/hr 08/21/2016 Pt Fal5448 PT 27.2 seconds 08/21/2016 Pt Sje0438 INR 2.7 08/21/2016 Pt Cci6334 Low Intensity - 1.5-2.0 08/21/2016 Pt Bsa1698 Mod intensity - 2.0-3.0 08/21/2016 Pt Wrc7674 Hi intensity - 3.0-4.0 08/21/2016 Magnesium Ord90 Mag 1.9 mg/dL 08/21/2016 Pt Qzm4968 PT 25.9 seconds 06/17/2016 Pt Gwp7995 INR 2.5 06/17/2016 Pt Zbr1061 Low Intensity - 1.5-2.0 06/17/2016 Pt Jrw9787 Mod intensity - 2.0-3.0 06/17/2016 Pt Wsq8255 Hi intensity - 3.0-4.0 06/17/2016 Tsh Ord6 hTSH II 2.13 uIU/mL 06/08/2016 Free T4 Tzs396 FREE T4 0.79 ng/dL 06/08/2016 Cbc With [...] 80.8 fl 06/08/2016 Cbc With Differential Ord2 MCH 26.8 pg 06/08/2016 Cbc With Differential Ord2 [place]% 12.0 % 06/08/2016 Cbc With Differential Ord2 Eos% 5.0 % 06/08/2016 Cbc With Differential Ord2 MCHC 33.2 pg 06/08/2016 Cbc With Differential Ord2 Baso% 1.7 % 06/08/2016 Cbc With Differential Ord2 PLT 196 K/ul 06/08/2016 Cbc With Differential Ord2 RDW 16.0 % 06/08/2016 Cbc With Differential Ord2 Neut ABS# 3.27 K/ul 06/08/2016 Cbc With Differential Ord2 Lymph ABS# 1.40 K/ul 06/08/2016 Cbc With Differential Ord2 [place] ABS# 0.7 K/ul 06/08/2016 Cbc With Differential Ord2 Eos ABS# 0.3 K/ul 06/08/2016 Cbc With Differential Ord2 Baso ABS# 0.1 K/ul 06/08/2016 %Hba1C Puk282 % HbA1c 03014-0 6.2 % 06/08/2016 %Hba1C Upp889 Gluc Ave 131 mg/dL 06/08/2016 Comp Metabolic Cqo959 NA 138 mEq/L 06/08/2016 Comp Metabolic Smf799 K 3.9 mEq/L 06/08/2016 Comp Metabolic Uoz045 CL 105 mEq/L 06/08/2016 Comp Metabolic Bge228 CO2 27.0 mEq/L 06/08/2016 Comp Metabolic Twq844 AN ION GAP 10 06/08/2016 Comp Metabolic Syf980 GL UCOSE 127 mg/dL 06/08/2016 Comp Metabolic Xbn723 Cr eat 1.0 mg/dL 06/08/2016 Comp Metabolic Lgy014 eG FR 59 ml/min/1.73m2 06/08 Comp Metabolic Myp525 BUN 19 mg/dL 06/08/2016 Comp Metabolic Twu455 B/ C Ratio 19.4 Ratio 06/08/2016 Comp Metabolic Nlg866 CA LCIUM 9.2 mg/dL 06/08/2016 Comp Metabolic Bim203 AL K PHOS 77 U/L 06/08/2016 Comp Metabolic Woj202 T(SGOT) 19 U/L 06/08/2016 Comp Metabolic Vch215 AL T(SGPT) 13 U/L 06/08/2016 Comp Metabolic Tcz833 BI LI T 0.5 mg/dL 06/08/2016 Comp Metabolic Dnh999 AL BUMIN 3.8 g/dL 06/08/2016 Comp Metabolic Ilw126 TP RO 6.6 g/dL 06/08/2016 Comp Metabolic Srz534 GL OB 2.8 g/dL 06/08/2016 Comp Metabolic Dww170 A/ G Ratio 1.4 Ratio 06/08/2016 Comp Metabolic Agu770 Os mo 280 mOsmo 06/08/2016 Pt Leu8205 PT 36.1 seconds 06/08/2016 Pt Zpr5462 INR 3.9 06/08/2016 Pt Ykm8319 Low Intensity - 1.5-2.0 06/08/2016 Pt Cqr0108 Mod intensity - 2.0-3.0 06/08/2016 Pt Vzs9262 Hi intensity - 3.0-4.0 06/08/2016 Lipid Ord30 CHOL 149 mg/dL 06/08/2016 Lipid Ord30 HDL 46.0 mg/dl 06/08/2016 Lipid Ord30 TRIG 279 mg/dL 06/08/2016 Lipid Ord30 LDL 47 mg/dL 06/08/2016 Lipid Ord30 C/HDL 3.2 Ratio 06/08/2016 Pt Hkx8896 PT 30.9 seconds 02/12/2016 Pt Kmc0153 INR 3.2 02/12/2016 Pt Jxs1257 Low Intensity - 1.5-2.0 02/12/2016 Pt Kvh9770 Mod intensity - 2.0-3.0 02/12/2016 Pt Ocf5136 Hi intensity - 3.0-4.0 02/12/2016 Free T4 Qyq690 FREE T4 1.24 ng/dL 09/27/2015 %Hba1C Imu665 % HbA1c 12083-0 6.4 % 09/27/2015 %Hba1C Iwz451 Gluc Ave 137 mg/dL 09/27/2015 Tsh Ord6 hTSH II 0.37 uIU/mL 09/27/2015 Pt Ojm1571 PT 26.2 seconds 09/27/2015 Pt Mnk7413 INR 2.5 09/27/2015 Pt Qvj4641 Low Intensity - 1.5-2.0 09/27/2015 Pt Eaj1983 Mod intensity - 2.0-3.0 09/27/2015 Pt Brf9022 Hi intensity - 3.0-4.0 09/27/2015 Pt Jgc5607 PT 27.6 seconds 2015 Pt Akz9448 INR 2.7 2015 Pt Upl2284 Low Intensity - 1.5-2.0 2015 Pt Pra5324 Mod intensity - 2.0-3.0 2015 Pt Jhx1021 Hi intensity - 3.0-4.0 2015 %Hba1C Pxq956 % HbA1c 84249-1 6.1 % 06/11/2015 %Hba1C Gkq048 Gluc Ave 128 mg/dL 06/11/2015 Cbc With [...] Ord2 RDW 15.8 % 06/10/2015 Comp Metabolic Yer969 NA 139 mEq/L 06/10/2015 Comp Metabolic Wir794 K 4.1 mEq/L 06/10/2015 Comp Metabolic Hxr421 CL 105 mEq/L 06/10/2015 Comp Metabolic Lhb488 CO2 27.0 mEq/L 06/10/2015 Comp Metabolic Ajr082 AN ION GAP 11 06/10/2015 Comp Metabolic Cwa522 GL UCOSE 127 mg/dL 06/10/2015 Comp Metabolic Hre099 Cr eat 1.0 mg/dL 06/10/2015 Comp Metabolic Yhb974 eG FR 59 ml/min/1.73m2 06/10 Comp Metabolic Unt060 BUN 21 mg/dL 06/10/2015 Comp Metabolic Cnv057 B/ C Ratio 21.2 Ratio 06/10/2015 Comp Metabolic Ggy355 CA LCIUM 9.2 mg/dL 06/10/2015 Comp Metabolic Nur907 AL K PHOS 87 U/L 06/10/2015 Comp Metabolic Dix557 T(SGOT) 20 U/L 06/10/2015 Comp Metabolic Wcm133 AL T(SGPT) 17 U/L 06/10/2015 Comp Metabolic Bnp379 BI LI T 0.4 mg/dL 06/10/2015 Comp Metabolic Oou482 AL BUMIN 4.1 g/dL 06/10/2015 Comp Metabolic Yni569 TP RO 7.2 g/dL 06/10/2015 Comp Metabolic Jnw911 GL OB 3.1 g/dL 06/10/2015 Comp Metabolic Rnl567 A/ G Ratio 1.3 Ratio 06/10/2015 Comp Metabolic Hbr593 Os mo 282 mOsmo 06/10/2015 Tsh Ord6 hTSH II 0.86 uIU/mL 06/10/2015 Lipid Ord30 CHOL 161 mg/dL 06/10/2015 Lipid Ord30 HDL 49.0 mg/dl 06/10/2015 Lipid Ord30 TRIG 208 mg/dL 06/10/2015 Lipid Ord30 LDL 70 mg/dL 06/10/2015 Lipid Ord30 C/HDL 3.3 Ratio 06/10/2015 Pt Iks6107 PT 25.0 seconds 04/09/2015 Pt Ceu6637 INR 2.4 04/09/2015 Pt Xvi3713 Low Intensity - 1.5-2.0 04/09/2015 Pt Oix6113 Mod intensity - 2.0-3.0 04/09/2015 Pt Cqa1620 Hi intensity - 3.0-4.0 04/09/2015 Free T4 Vid019 FREE T4 1.05 ng/dL 01/22/2015 Pt Dds6361 PT 27.2 seconds 01/22/2015 Pt Xyr4161 INR 2.6 01/22/2015 Pt Njx7391 Low Intensity - 1.5-2.0 01/22/2015 Pt Qyf2327 Mod intensity - 2.0-3.0 01/22/2015 Pt Fdc1222 Hi intensity - 3.0-4.0 01/22/2015 Cbc With [...] Differential Ord2 RDW 15.2 % 01/22/2015 B12 Fni728 B12 402.00 pg/ml 01/22/2015 Tsh Ord6 hTSH II 0.65 uIU/mL 01/22/2015 Lipid Ord30 CHOL 166 mg/dL 01/22/2015 Lipid Ord30 HDL 48.0 mg/dl 01/22/2015 Lipid Ord30 TRIG 264 mg/dL 01/22/2015 Lipid Ord30 LDL 65 mg/dL 01/22/2015 Lipid Ord30 C/HDL 3.5 Ratio 01/22/2015 Comp Metabolic Lrw778 NA 138 mEq/L 01/22/2015 Comp Metabolic Nrn014 K 4.1 mEq/L 01/22/2015 Comp Metabolic Qtu131 CL 104 mEq/L 01/22/2015 Comp Metabolic Uul646 CO2 29.0 mEq/L 01/22/2015 Comp Metabolic Bln063 AN ION GAP 9 01/22/2015 Comp Metabolic Keb128 GL UCOSE 106 mg/dL 01/22/2015 Comp Metabolic Pxl641 Cr eat 0.9 mg/dL 01/22/2015 Comp Metabolic Bzv368 eG FR 63 ml/min/1.73m2 01/22 Comp Metabolic Sdn223 BUN 21 mg/dL 01/22/2015 Comp Metabolic Qbj405 B/ C Ratio 22.3 Ratio 01/22/2015 Comp Metabolic Mwp059 CA LCIUM 9.4 mg/dL 01/22/2015 Comp Metabolic Trl491 AL K PHOS 83 U/L 01/22/2015 Comp Metabolic Agy496 T(SGOT) 23 U/L 01/22/2015 Comp Metabolic Csi577 AL T(SGPT) 18 U/L 01/22/2015 Comp Metabolic Pgq879 BI LI T 0.8 mg/dL 01/22/2015 Comp Metabolic Daf784 AL BUMIN 4.2 g/dL 01/22/2015 Comp Metabolic Haz568 TP RO 7.3 g/dL 01/22/2015 Comp Metabolic Ysy431 GL OB 3.1 g/dL 01/22/2015 Comp Metabolic Bjv922 A/ G Ratio 1.4 Ratio 01/22/2015 Comp Metabolic Ixw440 Os mo 279 mOsmo 01/22/2015 Review of [...] Date URINALYSIS NONAUTO W /O SCOPE CPT-4: 11466 03/05/2017 Vital Signs Date Vital 04/14/2018 Blood Pressure 1: 116/78 Code: 8480-6 BMI: 41.6 Code: 87876-1 Heart Rate 1: 72 bpm Height: 5'1" SpO2: 98% Weight: 220 lbs 01/18/2018 Blood Pressure 1: 132/74 Code: 8480-6 BMI: 43.5 Code: 61451-5 Heart Rate 1: 70 bpm Height: 5'1" SpO2: 97% Weight: 230 lbs 01/04/2018 Blood Pressure 1: 134/76 Code: 8480-6 BMI: 42.7 Code: 05692-9 Heart Rate 1: 83 bpm Height: 5'1" SpO2: 98% Weight: 226 lbs 09/23/2017 Blood Pressure 1: 124/76 Code: 8480-6 BMI: 42.3 Code: 98186-5 Heart Rate 1: 94 bpm Height: 5'1" SpO2: 96% Weight: 224 lbs 05/27/2017 Blood Pressure 1: 146/78 Code: 8480-6 BMI: 41.4 Code: 95660-9 Heart Rate 1: 85 bpm Height: 5'1" SpO2: 98% Weight: 219 lbs 02/24/2017 Blood Pressure 1: 138/66 Code: 8480-6 BMI: 41.4 Code: 58098-9 Heart Rate 1: 78 bpm Height: 5'1" SpO2: 97% Weight: 219 lbs 11/02/2016 Blood Pressure 1: 144/72 Code: 8480-6 BMI: 46.1 Code: 62272-8 Heart Rate 1: 78 bpm Height: 5'1" SpO2: 98% Weight: 244 lbs 09/30/2016 Blood Pressure 1: 130/76 Code: 8480-6 BMI: 45.0 Code: 94801-4 Heart Rate 1: 86 bpm Height: 5'1" SpO2: 98% Weight: 238 lbs 09/10/2016 Blood Pressure 1: 136/68 Code: 8480-6 BMI: 46.3 Code: 98830-5 Heart Rate 1: 83 bpm Height: 5'1" SpO2: 98% Weight: 245 lbs 08/20/2016 Blood Pressure 1: 142/78 Code: 8480-6 BMI: 45.3 Code: 69511-9 Heart Rate 1: 84 bpm Height: 5'1" SpO2: 99% Weight: 240 lbs 06/08/2016 Blood Pressure 1: 134/76 Code: 8480-6 BMI: 44.2 Code: 50718-5 Heart Rate 1: 86 bpm Height: 5'1" SpO2: 96% Weight: 234 lbs 04/02/2016 Blood Pressure 1: 142/70 Code: 8480-6 BMI: 44.6 Code: 59229-2 Heart Rate 1: 78 bpm Height: 5'1" SpO2: 97% Weight: 236 lbs 01/14/2016 Blood Pressure 1: 146/72 Code: 8480-6 BMI: 44.2 Code: 76432-3 Heart Rate 1: 86 bpm Height: 5'1" SpO2: 96% Weight: 234 lbs 10/02/2015 Blood Pressure 1: 158/76 Code: 8480-6 BMI: 44.2 Code: 67177-1 Heart Rate 1: 67 bpm Height: 5'1" SpO2: 97% Weight: 234 lbs 07/15/2015 Blood Pressure 1: 200/90 Code: 8480-6 Blood Pressure 1: 148/78 Code: 8480-6 BMI: 44.0 Code: 04089-2 Heart Rate 1: 89 bpm Height: 5'1" SpO2: 97% Weight: 233 lbs 06/10/2015 Blood Pressure 1: 140/82 Code: 8480-6 BMI: 44.0 Code: 73563-0 Heart Rate 1: 78 bpm Height: 5'1" [...] eep 10/02/2015 None shoulder pain Quality ac sebasitan 10/02/2015 None shoulder pain Quality co nstant [...] Encounters Encounter Performer Loca tion Codes Date ([id number]) 91288 EST. 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 P ATIENT, LEVEL III Diagnosis: Localized edema[ICD10: R60.0] Diagnosis: Gastro-esophageal reflux disease without esophagitis[ICD10: K21.9] Edna Almanza MD, [facility] CPT-4: 95795 01/18/2018 ([id number]) 76600 EST. [facility] Diagnosis: Gastro-esophageal reflux disease without esophagitis[ICD10: K21.9] Diagnosis: Localized edema[ICD10: R60.0] Diagnosis: Essential (primary) hypertension[ICD10: I10] Diagnosis: Hypothyroidism, unspecified[ICD10: E03.9] Diagnosis: Impaired fasting glucose[ICD10: R73.01] Edna Almanza MD, [facility] CPT-4: 42820 01/04/2018 ([id number]) 10515 EST. 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 PATIENT, LEVEL III Diagnosis: Pain in right hip[ICD10: M25.551] Nata Almanza MD, [facility] CPT-4: 41741 02/24/2017 ([id number]) 96005 EST. P ATIENT, LEVEL IV Diagnosis: Essential (primary) hypertension[ICD10: I10] Diagnosis: Localized edema[ICD10: R60.0] Diagnosis: Pain in right hip[ICD10: M25.551] Sarai Almanza MD, [facility] CPT-4: 03102 11/02/2016 ([id number]) 87184 EST. P ATIENT, LEVEL IV Diagnosis: Essential (primary) hypertension[ICD10: I10] Diagnosis: Localized edema[ICD10: R60.0] Sarai Almanza MD, [facility] CPT-4: 80433 09/30/2016 06726 EST. PATIENT, LEVEL IV Diagnosis: Localized edema[ICD10: R60.0] Diagnosis: Pain in joints of left hand[ICD10: M25.542] Diagnosis: Pain in joints of right hand[ICD10: M25.541] Nata Almanza MD, [facility] CPT-4: 27451 09/10/2016 64271 EST. PATIENT, LEVEL IV Diagnosis: Localized edema[ICD10: R60.0] Diagnosis: Pain in joints of left hand[ICD10: M25.542] Diagnosis: Pain in joints of right hand[ICD10: M25.541] Diagnosis: Other fatigue[ICD10: R53.83] Nata Almanza MD, [facility] CPT-4: 19321 08/20/2016 04589 EST. PATIENT, LEVEL IV Diagnosis: Essential (primary) hypertension[ICD10: I10] Diagnosis: Other mcc (current) drug therapy[ICD10: Z79.899] Diagnosis: Tinnitus, bilateral[ICD10: H93.13] Nata Almanza MD, [facility] CPT-4: 78725 06/08/2016 77135 EST. PATIENT, LEVEL IV Diagnosis: Other allergic rhinitis[ICD10: J30.89] Diagnosis: Acute laryngopharyngitis[ICD10: J06.0] Nata Almanza MD, [facility] CPT-4: 35814 04/02/2016 19136 EST. PATIENT, LEVEL IV Diagnosis: Left upper quadrant pain[ICD10: R10.12] Nata Almanza MD, [facility] CPT-4: 51440 01/14/2016 77670 EST. PATIENT, LEVEL IV Diagnosis: Pain in left shoulder[ICD10: M25.512] Diagnosis: Body mass index (BMI) 40.0-44.9, adult[ICD10: Z68.41] Nata Almanza MD, [facility] CPT-4: 56254 10/02/2015 54604 EST. 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: Other mcc (current) drug therapy[ICD10: Z79.899] [facility] CPT-4: 30711 06/10/2015 ([id number]) OFFICE VISI T NEW - LEVEL 4 Diagnosis: ESSENTIAL HYPERTENSION[ICD9: 401.9] Diagnosis: HYPOTHYROIDISM[ICD9: 244.9] Diagnosis: ENCNTR LONG-RX USE NEC[ICD9: V58.69] Diagnosis: HYPERLIPIDEMIA[ICD9: 272.4] Diagnosis: Vitamin B12 deficiency[ICD9: 266.2] Diagnosis: Status post gastric surgery[ICD9: V45.89] Diagnosis: Snoring[ICD9: 786.09] [facility] CPT-4: 59978 01/22/2015 Plan of Care Planned Activity Notes [...] A1C 04/14/2018 [phone] (15 min) Moderate 04/14/2018 Patient Education: [...] to further attempt to reduce peripheral edema. MUVO-mtxddlot-kntwrkgb prilosec BID and carafate QID -discussed low spice, low acidic diet 01/18/2018 Appointment: Edna Douglas WPtel: [phone] [phone] (15 min) Moderate 01/18/2018 Patient Education: [...] of control. 01/04/2018 Appointment: Edna Douglas WPtel: [phone] [phone] (30 min) Complex 01/04/2018 Patient Education: Patient Medication Summary Completed 01/04/2018 Care Plan: [facility] 04975-2 Pending 01/04/2018 Visit Plan: Abdominal hernia - [...] at home. 09/23/2017 Appointment: Sarai Almanza WPtel: [address] [place], [place] [phone] (15 min) Moderate 09/23/2017 Patient Education: Patient [...] medications. 05/27/2017 Appointment: Edna Douglas WPtel: [phone] [phone] [place] (30 min) Complex 05/27/2017 Patient Education: [...] [place]. 02/24/2017 App[facility]ment[phone] [phone] [place] (30 min) Complex 02/24/2017 Patient [...] 11/02/2016 [phone] [phone] [place] (15 min) Moderate 11/02/2016 Patient [...] peripheral edema. 09/30/2016 Appointment: Sarai Almanza WPtel: [phone] [facility] (15 min) Moderate 09/30/2016 Patient [...] peripheral edema. 09/10/2016 Appointment: Nata Hsu WPtel: [phone] (30 min) Complex 09/10/2016 Patient Education: Patient [...] edema. 08/20/2016 App[facility]ment[phone] [facility] [place] (30 min) Complex 08/20/2016 Patient Education: Patient Medication Summary Completed 08/20/2016 [id number] Ref[facility] Initiated 07/02/2016 Visit Plan: Chronic [...] 06/08/2016 Care Plan: Referral Order SNOMED-CT : [id number] Pending 06/08/2016 Visit Plan: URI - Pt [...] allergy spray. 04/02/2016 Appointment: Nata Hsu WPtel: [address] [place], [place] [phone] (30 min) Complex 04/02/2016 Patient Education: Patient [...] acute pain 01/14/2016 [facility]ment[phone] (30 min) Complex 01/14/2016 Patient Education: Patient Medication Summary Completed 01/14/2016 Patient Education: Obesity Completed 01/14/2016 Care Plan: BMI Above normal followup DAVID F-MGMT EDUC & TRAIN 1 PT Pending 10/24/2015 Care Plan: X-RAY EXAM OF SHOULDER LOINC : 01084-1 Pending 10/24/2015 Visit Plan: Left shoulder pain [...] check. 10/02/2015 Appointment: [phone] [phone] (15 min) Moderate 10/02/2015 Patient Education: [...] Completed 06/10/2015 Appointment: Sarai Almanza WPtel: [address] [place], [place] [phone] (15 min) Moderate 04/22/2015 Visit Plan: Hypertension [...] planning occurring at [facility]. Snoring - Sleep apnea symptoms with difficulty [...] medications. 01/22/2015 Appointment: [phone] [phone] [place] ([place] New Patient 01/22/2015 Patient Education: Patient Medication Summary Completed 01/22/2015 Patient Education: Hypertension Completed 01/22/2015 [id number] Referral Initiated Instructions Comment . Chronic [...] be better served by Dr. Betancur at [facility]. I have recommended a referral [...] to further attempt to reduce peripheral edema. NINF-blfrwitj-jtebkouf prilosec BID and carafate QID -discussed low [...] planning occurring at [facility]. Snoring - Sleep apnea symptoms with difficulty [...]
--- OUTSIDE RECORDS SUMMARY | 2020-01-16 23:47 | XMS REPORT | CCD ---
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 Name Role Phone PP Unavailable CCM Unavailable Summary Purpose Interface Exchange Insurance Providers Payer name Policy type / Coverage type Covered alliance party ID Effective Begin Date Effective End Date WPS Medicare Part B Medicare Part B [id number] 2017 Unknown [employer] [place] Medicare Part B [id number] 2017 Unknown Family history Father Diagnosis Age At Onset Hyperlipidemia Unknown Heart Attack Unknown Mother Diagnosis Age At Onset Arthritis Unknown Social History Social History Element Codes Description Effective Dates Marital status Unknown M arried Nathan 09/30/2016 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 Number of children Unknown 3 01/22/[address]: 562878289 Never smoker 01/22/[address]: 461225905 Never drinks alcohol 01/22/2015 Allergies, Adverse Reactions, [...] ICD-9: 790.21 ICD-10: R73.01 Active 05/27/2017 Unknown care home (current) use of anticoagulants ICD-9: V58.61 [...] 780.79 ICD-10: R53.83 Active 08/20/2016 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 ICD-9: V58.69 [...] cose ICD-9: 790.21 ICD-10: R73.01 05/27/2017 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 ICD-9: V58.61 ICD-10: [...] ICD-9: 780.79 ICD-10: R53.83 08/20/2016 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 ICD-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 [...] Instructions clonazepam 0.5 mg ta blet RxNorm: 387803 1 Tablet(s) PO BID 06/08/2018 11/04/2018 Active Carafate 1 gram tablet RxNorm: 588038 TAKE ONE TABLET BY MOUTH BEFORE MEALS AN D AT BEDTIME 05/18/2018 07/12/2018 Active Generic For:CARAFATE 1GM 8:38:28 AM Synthroid 137 mcg ta blet RxNorm: 684265 TAKE 1 TABLET BY MOUT H ONCE DAILY 05/18/2018 11/13/2018 Ac tive Generic For:SYNTHROID 137MCG TAB 2017 8:57:54 AM spironolactone 25 mg tablet RxNorm: 352287 TAKE 1 TABLET BY MOUT H EVERY DAY 05/18/2018 05/12/2019 Ac tive Generic For:*ALDACTONE 25MG 05/18/2018 8:57:50 AM allopurinol 300 mg t ablet RxNorm: 663826 TAKE 1 TABLET BY MOUT H ONCE DAILY. 04/18/2018 10/14/2018 Ac tive Generic For:ZYLOPRIM 300 MG TABLET 03/22 9:13:47 AM Lasix 20 mg tablet RxNorm: 758529 TAKE ONE TABLET BY MOUTH DAILY 04/18/2018 08/15/2018 Ac tive Generic For:LASIX 20MG 04/18/2018 9:13: 50 AM Carafate 1 gram tablet RxNorm: 057757 TAKE ONE TABLET BY MOUTH BEFORE MEALS AN D AT BEDTIME 04/18/2018 05/17/2018 Inactive Generic For:CARAFATE 1GM 1 9:32:51 AM Coumadin 5 mg tablet RxNorm: 633707 TAKE 1 TABLET BY MOUTH DIRECTED 03/21/2018 09/16/2018 Ac tive Generic For:COUMADIN 5MG TAB 03/21/2018 9:13:00 AM Carafate 1 gram tablet RxNorm: 491564 TAKE ONE TABLET BY MOUTH BEFORE MEALS AN D AT BEDTIME 03/21/2018 04/17/2018 Inactive Generic For:CARAFATE 1GM 1 9:14:24 AM Carafate 1 gram tablet RxNorm: 986312 1 Tablet(s) PO AC & HS 02/17/2018 03/20/2018 Inactive atenolol 100 mg tablet RxNorm: 666926 1 Tablet(s) PO daily 02/04/2018 09/01/2018 Active atenolol 50 mg tablet RxNorm: 947952 1 Tablet(s) PO daily 02/03/2018 02/03/2018 Inactive omeprazole 20 mg cap sean,delayed release RxNorm: 688895 1 Capsule(s) BID 01/21/2018 01/15/2019 Ac tive Generic For:PRILOSEC 20MG 07/22/2017 8:5 8:20 AM Carafate 1 gram tablet RxNorm: 273862 1 Tablet(s) PO AC & HS 01/21/2018 02/16/2018 Inactive Carafate 1 gram tablet RxNorm: 568086 1 Tablet(s) PO AC & HS 01/18/2018 01/20/2018 Inactive Carafate 1 gram tablet RxNorm: 134106 1 Tablet(s) PO AC & HS 01/18/2018 02/27/2018 Inactive Carafate 1 gram tablet RxNorm: 022864 1 Tablet(s) PO AC & HS TAKE ONE TABLET B Y MOUTH TWICE DAILY 01/18/2018 05/17/2018 Inactive Generic For:CARAFATE 1GM 0 12/20/2017 9:10:56 AM omeprazole 20 mg cap sean,delayed release RxNorm: 640256 Capsule(s) TAKE 1 CAP SEAN BY MOUTH EVERY DAY 01/17/2018 01/20/2018 Inactive Generic For:PRILOSEC 20MG 0 07/22/2017 8:58:20 AM omeprazole 20 mg cap sean,delayed release RxNorm: 765102 Capsule(s) TAKE 1 CAP SEAN BY MOUTH EVERY DAY 01/14/2018 01/16/2018 Inactive Generic For:PRILOSEC 20MG 07/22/2017 8:58:20 AM Plavix 75 mg tablet RxNorm: 946305 1 Tablet(s) PO daily 01/07/2018 07/05/2018 Active clonazepam 0.5 mg ta blet RxNorm: 273116 1 Tablet(s) PO BID 01/07/2018 06/05/2018 Inactive Carafate 1 gram tablet RxNorm: 771806 1 Tablet(s) PO AC & HS 01/04/2018 01/17/2018 Inactive sodium bicarbonate 6 50 mg tablet RxNorm: 773605 TAKE 2 TABLETS BY JAVON TH TWICE DAILY 12/20/2017 06/17/2018 In active 12/20/2017 9:10:59 AM Lasix 20 mg tablet RxNorm: 166855 TAKE ONE TABLET BY MOUTH DAILY 12/20/2017 04/17/2018 In active Generic For:LASIX 20MG 12/20/2017 9:11: 03 AM Carafate 1 gram tablet RxNorm: 988537 TAKE ONE TABLET BY MOUTH TWICE DAILY 12/20/2017 01/17/2018 In active Generic For:CARAFATE 1GM 12/20/2017 9:1 0:56 AM Synthroid 137 mcg ta blet RxNorm: 613807 TAKE 1 TABLET BY MOUT H ONCE DAILY 11/19/2017 05/17/2018 In active Generic For:SYNTHROID 137MCG TAB 2017 8:58:04 AM Detrol LA 4 mg capsu le,extended release RxNorm: 624376 TAKE 1 CAPSULE BY JAVON TH ONCE DAILY 10/20/2017 04/13/2018 Inactive Generic For:DETROL LA 4MG C AP 10/20/2017 9:01:56 AM allopurinol 300 mg t ablet RxNorm: 272665 TAKE 1 TABLET BY MOUT H ONCE DAILY. 10/20/2017 04/17/2018 In active Generic For:ZYLOPRIM 300 MG TABLET 07/2017 9:01:59 AM Coumadin 5 mg tablet RxNorm: 927354 1 Tablet(s) PO UD 10/01/2017 03/20/2018 Inactive cyclobenzaprine 5 mg tablet RxNorm: 892030 1 Tablet(s) PO TID as needed myscle spasm 09/23/2017 10/12/2017 Inactive Lipitor 40 mg tablet RxNorm: 508924 TAKE 1 TABLET BY MOUTH ONCE DAILY 09/20/2017 09/14/2018 Ac tive Generic For:LIPITOR 40MG 09/20/2017 8:5 6:04 AM atenolol 100 mg tablet RxNorm: 769400 1 Tablet(s) PO daily 08/30/2017 02/03/2018 Inactive atenolol 50 mg tablet RxNorm: 924415 1 Tablet(s) PO daily 08/30/2017 08/30/2017 Inactive Lovenox 30 mg/0.3 mL subcutaneous syringe RxNorm: 428158 0.3 Milliliter(s) SQ Q12H 08/24/2017 09/06/2017 In active Lasix 20 mg tablet RxNorm: 294771 TAKE ONE TABLET BY MOUTH DAILY 08/23/2017 12/19/2017 In active Generic For:LASIX 20MG 08/21/2017 9:04: 27 AM Synthroid 137 mcg ta blet RxNorm: 978914 TAKE 1 TABLET BY MOUT H ONCE DAILY 08/23/2017 11/18/2017 In active Generic For:SYNTHROID 137MCG TAB 2017 9:04:30 AM Lovenox 30 mg/0.3 mL subcutaneous syringe RxNorm: 185797 0.3 Milliliter(s) SQ Q12H 08/10/2017 08/23/2017 In active clonazepam 0.5 mg ta blet RxNorm: 771429 1 Tablet(s) PO BID 08/04/2017 12/30/2017 Inactive Coumadin 4 mg tablet RxNorm: 936221 TAKE 1 TABLET BY MOUTH THREE TIMES PER [place] (WEDNESDAY, WEDNESDAY AND WEDNESDAY) 07/22/2017 02/16/2018 Inactive Generic For:COUMADIN 4MG 07/22/2017 8:58:26 AM Coumadin 4 mg tablet RxNorm: 711227 TAKE 1 TABLET BY MOUTH THREE TIMES PER [place] (WEDNESDAY, WEDNESDAY AND WEDNESDAY) 07/22/2017 02/16/2018 Inactive Generic For:COUMADIN 4MG 07/22/2017 8:58:26 AM omeprazole 20 mg cap sean,delayed release RxNorm: 795286 TAKE 1 CAPSULE BY JAVON TH EVERY DAY 07/22/2017 01/13/2018 Inactive Generic For:PRILOSEC 20MG 07/22/2017 8: 58:20 AM venlafaxine ER 75 mg capsule,extended release 24 hr RxNorm: 856983 TAKE 1 CAPSULE BY MOUTH ONCE DAILY 06/22/2017 06/16/2018 Inactive Generic For:*EFFEXOR XR 75M G 06/19/2017 12:23:45 PM sodium bicarbonate 6 50 mg tablet RxNorm: 859843 TAKE 2 TABLETS BY JAVON TH TWICE DAILY 06/22/2017 12/18/2017 In active 06/19/2017 12:23:30 PM Coumadin 5 mg tablet RxNorm: 107480 1 Tablet(s) PO UD 06/01/2017 09/30/2017 Inactive Keflex 500 mg capsule RxNorm: 093755 1 Capsule(s) PO TID 05/27/2017 06/02/2017 Inactive Synthroid 137 mcg ta blet RxNorm: 692529 TAKE 1 TABLET BY MOUT H ONCE DAILY 05/24/2017 08/21/2017 In active Generic For:SYNTHROID 137MCG TAB 2016 8:55:59 AM Carafate 1 gram tablet RxNorm: 183366 TAKE ONE TABLET BY MOUTH TWICE DAILY 05/24/2017 12/19/2017 In active Generic For:CARAFATE 1GM 05/24/2017 8:5 5:54 AM spironolactone 25 mg tablet RxNorm: 097460 1 Tablet(s) PO daily 05/24/2017 05/17/2018 Inactive Detrol LA 4 mg capsu le,extended release RxNorm: 842491 1 Capsule(s) PO daily TAKE 1 CAPSULE BY MOUTH ONCE DAILY 05/10/2017 10/19/2017 Inactive Generic For:DETROL LA 4MG CAP 02/19/2017 2:36:00 PM Lasix 20 mg tablet RxNorm: 622234 TAKE ONE TABLET BY MOUTH DAILY 04/23/2017 08/20/2017 In active Generic For:LASIX 20MG 04/23/2017 9:04: 01 AM Coumadin 4 mg tablet RxNorm: 514144 TAKE 1 TABLET BY MOUTH THREE TIMES PER [place] (WEDNESDAY, WEDNESDAY AND WEDNESDAY) 04/23/2017 07/21/2017 Inactive Generic For:COUMADIN 4MG 04/23/2017 9:04:05 AM allopurinol 300 mg t ablet RxNorm: 516461 TAKE 1 TABLET BY MOUT H ONCE DAILY. 04/23/2017 10/19/2017 In active Generic For:ZYLOPRIM 300 MG TABLET 08/2016 9:03:57 AM potassium chloride 2 0 mEq/15 mL oral liquid RxNorm: 429956 Milliliter(s) 30 Milliliter(s) (40mEq) PO daily 03/24/2017 07/21/2017 Inactive Lovenox 30 mg/0.3 mL subcutaneous syringe RxNorm: 438642 0.3 Milliliter(s) SQ Q12H 03/22/2017 03/26/2017 In active Lovenox 30 mg/0.3 mL subcutaneous syringe RxNorm: 648372 0.3 Milliliter(s) SQ Q12H 03/19/2017 03/20/2017 In active Lovenox 30 mg/0.3 mL subcutaneous syringe RxNorm: 749436 0.3 Milliliter(s) SQ Q12H 03/16/2017 03/18/2017 In active clonazepam 0.5 mg ta blet RxNorm: 379326 1 Tablet(s) PO BID 03/02/2017 07/28/2017 Inactive Lovenox 30 mg/0.3 mL subcutaneous syringe RxNorm: 357576 1 injection SQ BID do NOT take the night time dose the day before surgery, or the morning dose the day of surgery 03/01/2017 03/07/2017 Inactive Lovenox 30 mg/0.3 mL subcutaneous syringe RxNorm: 188379 1 injection SQ BID 03/01/2017 02/28/2017 In active Detrol LA 4 mg capsu le,extended release RxNorm: 778851 TAKE 1 CAPSULE BY JAVON TH ONCE DAILY 02/19/2017 05/09/2017 Inactive Generic For:DETROL LA 4MG C AP 02/19/2017 2:36:00 PM hydrocodone 5 mg-humberto taminophen 325 mg tablet RxNorm: 309220 1-2 Tablet(s) PO Q6 P RN 02/04/2017 No Stop Date Active Zetia 10 mg tablet RxNorm: 673584 TAKE 1 TABLET BY MOUTH DAILY 01/25/2017 04/13/2018 Inactive 01/23/2017 9:03:48 AM omeprazole 20 mg cap sean,delayed release RxNorm: 258505 TAKE 1 CAPSULE BY JAVON TH EVERY DAY 01/25/2017 07/21/2017 Inactive Generic For:PRILOSEC 20MG 01/23/2017 9: 03:45 AM Coumadin 4 mg tablet RxNorm: 071131 TAKE 1 TABLET BY MOUTH THREE TIMES PER [place] (WEDNESDAY, WEDNESDAY AND WEDNESDAY) 01/25/2017 04/22/2017 Inactive Generic For:COUMADIN 4MG 01/23/2017 9:03:51 AM sodium bicarbonate 6 50 mg tablet RxNorm: 604345 TAKE 2 TABLETS BY JAVON TH TWICE DAILY 12/24/2016 06/21/2017 In active 12/24/2016 9:09:27 AM Lasix 20 mg tablet RxNorm: 648306 1 Tablet(s) PO daily 12/24/2016 04/22/2017 Inactive Synthroid 137 mcg ta blet RxNorm: 340087 TAKE 1 TABLET BY MOUT H ONCE DAILY 11/24/2016 05/22/2017 In active Generic For:SYNTHROID 137MCG TAB 2016 9:04:37 AM Coumadin 4 mg tablet RxNorm: 271162 TAKE 1 TABLET BY MOUTH THREE TIMES PER [place] (WEDNESDAY, WEDNESDAY AND WEDNESDAY) 11/24/2016 01/22/2017 Inactive Generic For:COUMADIN 4MG 11/24/2016 9:04:41 AM hydrocodone 5 mg-humberto taminophen 325 mg tablet RxNorm: 049791 1-2 Tablet(s) PO Q6 P RN 11/17/2016 02/03/2017 In active Carafate 1 gram tablet RxNorm: 990902 TAKE ONE TABLET BY MOUTH TWICE DAILY 10/27/2016 05/23/2017 In active Generic For:CARAFATE 1GM 10/26/2016 8:3 9:42 AM allopurinol 300 mg t ablet RxNorm: 069693 Tablet(s) TAKE 1 TABL ET BY MOUTH ONCE DAILY. 10/26/2016 04/22/2017 Inactive Lipitor 40 mg tablet RxNorm: 816318 1 Tablet(s) PO daily 09/25/2016 09/19/2017 Inactive Coumadin 4 mg tablet RxNorm: 607707 TAKE 1 TABLET BY MOUTH THREE TIMES PER [place] (WEDNESDAY, WEDNESDAY AND WEDNESDAY) 09/25/2016 11/23/2016 Inactive Generic For:COUMADIN 4MG 09/25/2016 8:55:58 AM Zetia 10 mg tablet RxNorm: 683030 1 Tablet(s) PO daily 09/25/2016 01/22/2017 Inactive gave 1 month of samples clonazepam 0.5 mg ta blet RxNorm: 013717 1 Tablet(s) PO BID 09/21/2016 02/16/2017 Inactive Lasix 20 mg tablet RxNorm: 705523 1 Tablet(s) PO daily 09/15/2016 12/23/2016 Inactive potassium chloride 2 0 mEq/15 mL oral liquid RxNorm: 262501 Milliliter(s) 30 Milliliter(s) (40mEq) PO daily 09/15/2016 01/12/2017 Inactive Lasix 20 mg tablet RxNorm: 2 Tablet(s) PO daily 09/10/2016 09/12/2016 Inactive Lasix 20 mg tablet RxNorm: 061180 1 Tablet(s) PO daily 08/28/2016 08/30/2016 Inactive Lasix 20 mg tablet RxNorm: 1 Tablet(s) PO daily 08/20/2016 08/22/2016 Inactive Detrol LA 4 mg capsu le,extended release RxNorm: 763544 TAKE 1 CAPSULE BY JAVON TH ONCE DAILY 07/27/2016 02/18/2017 Inactive Generic For:DETROL LA 4MG C AP 07/27/2016 9:08:27 AM Coumadin 4 mg tablet RxNorm: 839975 1 Tablet(s) PO 3 x week wed and sun 07/27/2016 09/24/2016 In active omeprazole 20 mg cap sean,delayed release RxNorm: 701196 Capsule(s) PO TAKE 1 CAPSULE BY MOUTH ONCE DAILY 07/27/2016 01/22/2017 Inactive venlafaxine ER 75 mg capsule,extended release 24 hr RxNorm: 325491 1 Capsule(s) PO daily 06/29/2016 06/21/2017 Inactive sodium bicarbonate 6 50 mg tablet RxNorm: 081616 TAKE 2 TABLETS BY JAVON TH TWICE DAILY 06/29/2016 12/23/2016 In active 06/27/2016 9:05:39 AM Coumadin 4 mg tablet RxNorm: 606897 1 Tablet(s) PO 3 x week wed and sun 06/09/2016 06/08/2016 In active Coumadin 4 mg tablet RxNorm: 721496 1 Tablet(s) PO 3 x week wed and sun 06/09/2016 07/26/2016 In active Zetia 10 mg tablet RxNorm: 847990 1 Tablet(s) PO daily 06/09/2016 06/08/2016 Inactive gave 1 month of samples Zetia 10 mg tablet RxNorm: 265209 1 Tablet(s) PO daily 06/09/2016 09/24/2016 Inactive gave 1 month of samples Effexor 75 mg tablet RxNorm: 780199 1 Tablet(s) PO daily 06/08/2016 06/28/2016 Inactive spironolactone 25 mg tablet RxNorm: 762709 1 Tablet(s) PO daily 06/08/2016 05/23/2017 Inactive Synthroid 137 mcg ta blet RxNorm: 059105 1 Tablet(s) PO daily 05/07/2016 11/02/2016 Inactive allopurinol 300 mg t ablet RxNorm: 691475 Tablet(s) TAKE 1 TABL ET BY MOUTH ONCE DAILY. 04/28/2016 10/24/2016 Inactive clonazepam 0.5 mg ta blet RxNorm: 602121 1 Tablet(s) PO BID 04/20/2016 09/15/2016 Inactive Flonase Allergy Reli ef 50 mcg/actuation nasal spray,suspension RxNorm: 6022531 1 [place] NASAL BID 04/02/2016 No Stop Date Active Zithromax Z-Thomas 250 mg tablet RxNorm: 642374 Tablet(s) PO 04/02/2016 08/27/2016 Inactive cetirizine 10 mg tablet RxNorm: 1406195 1 Tablet(s) PO daily 04/02/2016 05/01/2016 Inactive Carafate 1 gram tablet RxNorm: 345110 Tablet(s) TAKE 1 TABLET TWICE A DAY FOR 30 DAYS 03/30/2016 10/25/2016 Inactive Generic For:CARAFATE 1GM 02/08/2015 12:3 6:39 PM Plavix 75 mg tablet RxNorm: 971845 1 Tablet(s) PO daily 03/11/2016 09/06/2016 Inactive sodium bicarbonate 6 50 mg tablet RxNorm: 058864 Tablet(s) 2 Tablet(s) PO BID 02/28/2016 06/26/2016 In active omeprazole 20 mg cap sean,delayed release RxNorm: 111065 Capsule(s) PO TAKE 1 CAPSULE BY MOUTH ONCE DAILY 01/31/2016 07/26/2016 Inactive Fish Oil 1,000 mg ca psule RxNorm: 1 Capsule(s) PO BID 01/14/2016 No Stop Date Active Synthroid 137 mcg ta blet RxNorm: 618836 1 Tablet(s) PO daily 01/14/2016 05/06/2016 Inactive Detrol LA 4 mg capsu le,extended release RxNorm: 018565 TAKE 1 CAPSULE BY JAVON TH ONCE DAILY 12/30/2015 07/26/2016 Inactive Generic For:DETROL LA 4MG C AP 12/30/2015 9:11:01 AM potassium chloride 2 0 mEq/15 mL oral liquid RxNorm: 212792 Milliliter(s) 30 Milliliter(s) (40mEq) PO daily 12/02/2015 03/30/2016 Inactive sodium bicarbonate 6 50 mg tablet RxNorm: 611843 Tablet(s) 2 Tablet(s) PO BID 10/31/2015 02/27/2016 In active Lipitor 40 mg tablet RxNorm: 324919 1 Tablet(s) PO daily 10/09/2015 09/24/2016 Inactive sodium bicarbonate 6 50 mg tablet RxNorm: 609705 2 Tablet(s) PO BID 10/01/2015 10/30/2015 Inactive allopurinol 300 mg t ablet RxNorm: 946025 TAKE 1 TABLET BY MOUT H ONCE DAILY. 10/01/2015 04/27/2016 In active Generic For:ZYLOPRIM 300 MG TABLET 09/19 9:21:15 AM clonazepam 0.5 mg ta blet RxNorm: 214535 1 Tablet(s) PO BID 09/30/2015 04/19/2016 Inactive Coumadin 5 mg tablet RxNorm: 296981 1 Tablet(s) PO daily 09/27/2015 05/31/2017 Inactive Generic For:COUMADIN 5MG TAB N O T I C E PRESCRIPTION PREVIOUSLY AUTHORIZED BY DOCTOR:BOBBY ZULETA Synthroid 125 mcg ta blet RxNorm: 846845 1 Tablet(s) PO daily 09/27/2015 09/26/2015 Inactive Synthroid 125 mcg ta blet RxNorm: 084381 1 Tablet(s) PO daily 09/27/2015 01/13/2016 Inactive Carafate 1 gram tablet RxNorm: 150500 Tablet(s) TAKE 1 TABLET TWICE A DAY FOR 30 DAYS 09/02/2015 03/29/2016 Inactive Generic For:CARAFATE 1GM 02/08/2015 12:3 6:39 PM sodium bicarbonate 6 50 mg tablet RxNorm: 094740 2 Tablet(s) PO BID 09/02/2015 09/30/2015 Inactive Prilosec 20 mg capsu le,delayed release RxNorm: 203819 TAKE 1 CAPSULE BY JAVON TH ONCE DAILY 08/02/2015 01/28/2016 Inactive Generic For:PRILOSEC 20MG 08/02/2015 10:03:09 AM N O T I C E PRESCRIPTION PREVIOUSLY AUTHORIZED BY DOCTOR:BOBBY ZULETA Zyrtec 10 mg capsule RxNorm: 1889777 1 Capsule(s) PO daily 07/15/2015 08/13/2015 Inactive Keflex 500 mg capsule RxNorm: 058091 1 Capsule(s) PO TID 07/15/2015 07/21/2015 Inactive cetirizine 10 mg cap sean RxNorm: 8133097 1 Capsule(s) PO daily 07/15/2015 08/13/2015 Inactive hydrocodone 5 mg-humberto taminophen 325 mg tablet RxNorm: 774372 1-2 Tablet(s) PO Q6 P RN 06/10/2015 11/16/2016 In active sodium bicarbonate 6 50 mg tablet RxNorm: 059381 2 Tablet(s) PO BID 06/03/2015 08/31/2015 Inactive Detrol LA 4 mg capsu le,extended release RxNorm: 857409 TAKE 1 CAPSULE BY JAVON TH ONCE DAILY 06/03/2015 12/29/2015 Inactive Generic For:DETROL LA 4MG C AP N O T I C E PRESCRIPTION PREVIOUSLY AUTHORIZED BY DOCTOR:BOBBY ZULETA atenolol 50 mg tablet RxNorm: 932509 1 Tablet(s) PO daily TAKE 1 TABLET BY MO UTH DAILY 05/07/2015 08/23/2017 Inactive Generic For:TENORMIN 50MG 05/04/2015 9:07:22 AM spironolactone 25 mg tablet RxNorm: 276430 1 Tablet(s) PO daily 05/06/2015 06/07/2016 Inactive venlafaxine ER 75 mg capsule,extended release 24 hr RxNorm: 022407 1 Capsule(s) PO daily 05/04/2015 06/28/2016 Inactive atenolol 50 mg tablet RxNorm: 932763 TAKE 1 TABLET BY MOUTH DAILY 05/04/2015 05/06/2015 Inactive Generic For:TENORMIN 50MG 05/04/2015 9: 07:22 AM Synthroid 150 mcg ta blet RxNorm: 547742 TAKE 1 TABLET BY MOUT H ONCE DAILY. 04/05/2015 09/26/2015 In active Generic For:SYNTHROID 150MCG TAB 2014 4:45:40 PM N O T I C E PRESCRIPTION PREVIOUSLY AUTHORIZED BY DOCTOR:BOBBY ZULETA Effexor 75 mg tablet RxNorm: 931074 1 Tablet(s) PO daily 04/05/2015 07/03/2015 Inactive Coumadin 5 mg tablet RxNorm: 060907 TAKE 1 AND 1/2 TABLETS BY MOUTH ONCE MYRANDA LY 04/04/2015 09/26/2015 In active Generic For:COUMADIN 5MG TAB N O T I C E PRESCRIPTION PREVIOUSLY AUTHORIZED BY DOCTOR:BOBBY ZULETA clonazepam 0.5 mg ta blet RxNorm: 764088 1 Tablet(s) PO BID 03/13/2015 11/05/2015 Inactive sodium bicarbonate 6 50 mg tablet RxNorm: 617385 2 Tablet(s) PO BID 03/08/2015 06/02/2015 Inactive allopurinol 300 mg t ablet RxNorm: 057880 TAKE 1 TABLET BY MOUT H ONCE DAILY. 03/05/2015 09/30/2015 In active N O T I C E PRESCRIPTION PREVIOUSLY A UTHORIZED BY DOCTOR:BOBBY ZULETA Plavix 75 mg tablet RxNorm: 814097 1 Tablet(s) PO daily 02/12/2015 09/09/2015 Inactive clonazepam 0.5 mg ta blet RxNorm: 123798 1 Tablet(s) PO BID 02/11/2015 03/11/2015 Inactive Carafate 1 gram tablet RxNorm: 054954 TAKE 1 TABLET TWICE A DAY FOR 30 DAYS 02/08/2015 02/07/2015 In active Generic For:CARAFATE 1GM 02/08/2015 12:3 6:39 PM Carafate 1 gram tablet RxNorm: 165485 Tablet(s) TAKE 1 TABLET TWICE A DAY FOR 30 DAYS 02/08/2015 09/01/2015 Inactive Generic For:CARAFATE 1GM 02/08/2015 12:3 6:39 PM potassium chloride 2 0 mEq/15 mL oral liquid RxNorm: 639589 30 Milliliter(s) (40m Eq) PO daily 02/05/2015 12/01/2015 Inactive atenolol 50 mg tablet RxNorm: 018114 1 Tablet(s) PO daily 02/04/2015 05/03/2015 Inactive [SAVINGS FOR NON-COVERED DRUGS -- BIN:00 3585, PCN: ASPROD1, Group: XXXXX, ID# [id number], Questions: . THIS IS NOT INSURANCE.] potassium chloride 2 0 mEq/15 mL oral liquid RxNorm: 924382 30 Milliliter(s) (40m Eq) PO daily 01/08/2015 02/04/2015 Inactive potassium chloride 2 0 mEq/15 mL oral liquid RxNorm: 441973 30 Milliliter(s) (40m Eq) PO daily 12/07/2014 01/07/2015 Inactive atenolol 50 mg tablet RxNorm: 278768 1 Tablet(s) PO daily 11/09/2014 11/08/2014 Inactive atenolol 50 mg tablet RxNorm: 076810 1 Tablet(s) PO daily 11/09/2014 02/03/2015 Inactive [SAVINGS FOR NON-COVERED DRUGS -- BIN:5, PCN: ASPROD1, Group: XXXXX, ID# [id number], Questions: . THIS IS NOT INSURANCE.] Voltaren 1 % topical gel RxNorm: 448940 TOP No St art Date Active verapamil ER (HS) 24 0 mg tablet,extended release 24 hr RxNorm: 985285 1 Tablet(s) PO daily No Start Date Active aspirin 81 mg tablet RxNorm: 511271 1 Tablet(s) PO daily No Start Date Active Zofran 4 mg tablet RxNorm: 619181 1 Tablet(s) PO PRN No Start Date Active B12 1000 mcg RxNorm: 1 Tablet(s) PO daily No Start Date Active magnesium oxide 400 mg capsule RxNorm: 550410 2 Capsule(s) PO BID No Start Date Active Synthroid 150 mcg ta blet RxNorm: 231497 1 Tablet(s) PO daily No Start Date 04/04/2015 Inactive Coumadin 5 mg tablet RxNorm: 821138 1 Tablet(s) PO daily No Start Date 04/03/2015 Inactive cranberry 1,000 mg c apsule RxNorm: 692880 1 Capsule(s) PO daily No Start Date 04/13/2018 Inactive allopurinol 300 mg t ablet RxNorm: 746866 1 Tablet(s) PO daily No Start Date 03/04/2015 Inactive Prilosec 20 mg capsu le,delayed release RxNorm: 406024 1 Capsule(s) PO PRN No Start Date 08/01/2015 Inactive potassium chloride 2 0 mEq/15 mL oral liquid RxNorm: 262853 30 Milliliter(s) (40m Eq) PO daily No Start Date 12/06/2014 Inactive atenolol 50 mg tablet RxNorm: 728378 1 Tablet(s) PO daily No Start Date 08/29/2017 Inactive Lipitor 40 mg tablet RxNorm: 068667 1 Tablet(s) PO daily No Start Date 09/19/2017 Inactive Effexor 75 mg tablet RxNorm: 459582 1 Tablet(s) PO daily No Start Date 04/04/2015 Inactive Carafate 1 gram tablet RxNorm: 631084 1 Tablet(s) PO BID No Start Date 02/07/2015 Inactive clonazepam 0.5 mg ta blet RxNorm: 420300 1 Tablet(s) PO BID No Start Date 02/10/2015 Inactive Plavix 75 mg tablet RxNorm: 466502 1 Tablet(s) PO daily No Start Date 02/11/2015 Inactive sodium bicarbonate 6 50 mg tablet RxNorm: 708296 2 Tablet(s) PO BID No Start Date 09/01/2015 Inactive Lovenox 30 mg/0.3 mL subcutaneous syringe RxNorm: 376960 0.3 Milliliter(s) SQ Q12H No Start Date 03/15/2017 Inactive Fish Oil 1,000 mg ca psule RxNorm: 1 Capsule(s) PO daily No Start Date 01/13/2016 Inactive Detrol LA 4 mg capsu le,extended release RxNorm: 997945 1 Capsule(s) PO daily No Start Date 06/02/2015 Inactive Medication Administered No Medication Administered data Immunizations Vaccine Codes Date Status SHINGARIX CVX: 121 03/23 completed Assessments Condition Codes Effectiv e Dates care home (current) use of anticoagulants ICD-10: Z79.01 ICD-9: V58.61 04/14/2018 Impaired fasting glucose ICD-10: R73 .01 ICD-9: 790.21 04/14/2018 Essential (primary) hypertension ICD -10: I10 ICD-9: 401.9 04/14/2018 Hypothyroidism, unspecified ICD-10: E03.9 ICD-9: 244.9 04/14/2018 Gastro-esophageal reflux disease without esophagitis ICD-10: [...] bilateral ICD-10: H93.13 ICD-9: 388.31 06/08/2016 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.899 ICD-9: [...] shoulder ICD-10: M25.5 11 ICD-9: 719.41 06/10/2015 HYPOTHYROIDISM ICD-9: 244.9 01/22/2015 Snoring ICD-9: 786.09 Status post gastric surgery ICD-9: V45.89 01/22/2015 ESSENTIAL HYPERTENSION ICD-9: 401.9 01/22/2015 ENCNTR LONG-RX USE NEC ICD-9: V58.69 01/22/2015 HYPERLIPIDEMIA ICD-9: 272.4 01/22/2015 Vitamin B12 deficiency ICD-9: 266.2 01/22/2015 Reason For Visit Reason For Visit [...] Code Item Item Code Result Date Pt [id number] PT 18.4 seconds 06/17/2018 Pt [id number] INR 1.6 06/17/2018 Pt [id number] Low Intensity - 1.5-2.0 06/17/2018 Pt Nof3351 Mod intensity - 2.0-3.0 06/17/2018 Pt [id number] Hi intensity - 3.0-4.0 06/17/2018 Pt Mpl1179 PT 17.6 seconds 06/08/2018 Pt Unb2365 INR 1.5 06/08/2018 Pt Pgt5047 Low Intensity - 1.5-2.0 06/08/2018 Pt Szz7668 Mod intensity - 2.0-3.0 06/08/2018 Pt Htt3214 Hi intensity - 3.0-4.0 06/08/2018 C-Reactive Protein Qnt Crqnt CRP 0.1 mg/dl 06/08/2018 Cbc With Differential Ord2 WBC 5.45 K/ul 06/08/2018 Cbc With Differential Ord2 RBC 4.93 M/ul 06/08/2018 Cbc With Differential Ord2 HGB 15.0 g/dl 06/08/2018 Cbc With Differential Ord2 Neut% 65.1 % 06/08/2018 Cbc With Differential Ord2 HCT 43.8 % 06/08/2018 Cbc With Differential Ord2 Lymph% 22.0 % 06/08/2018 Cbc With Differential Ord2 MCV 88.8 fl 06/08/2018 Cbc With Differential Ord2 MCH 30.4 pg 06/08/2018 Cbc With Differential Ord2 [place]% 9.4 % 06/08/2018 Cbc With Differential Ord2 MCHC 34.2 pg 06/08/2018 Cbc With Differential Ord2 Eos% 2.4 % 06/08/2018 Cbc With Differential Ord2 Baso% 1.1 % 06/08/2018 Cbc With Differential Ord2 PLT 197 K/ul 06/08/2018 Cbc With Differential Ord2 RDW 14.8 % 06/08/2018 Cbc With Differential Ord2 Neut ABS# 3.55 K/ul 06/08/2018 Cbc With Differential Ord2 Lymph ABS# 1.20 K/ul 06/08/2018 Cbc With Differential Ord2 [place] ABS# 0.5 K/ul 06/08/2018 Cbc With Differential Ord2 Eos ABS# 0.1 K/ul 06/08/2018 Cbc With Differential Ord2 Baso ABS# 0.1 K/ul 06/08/2018 Sed Rate Ord21 ESR 5 mm/hr 06/08/2018 Pt Miq2097 PT 16.8 seconds 05/10/2018 Pt Lxw9786 INR 1.4 05/10/2018 Pt Wpf4763 Low Intensity - 1.5-2.0 05/10/2018 Pt Zcy8251 Mod intensity - 2.0-3.0 05/10/2018 Pt Bsw6457 Hi intensity - 3.0-4.0 05/10/2018 Pt Owr8513 PT 16.7 seconds 05/04/2018 Pt Spl4562 INR 1.4 05/04/2018 Pt Xxt7176 Low Intensity - 1.5-2.0 05/04/2018 Pt Txp3229 Mod intensity - 2.0-3.0 05/04/2018 Pt Yxd9558 Hi intensity - 3.0-4.0 05/04/2018 %Hba1C Lmu014 % HbA1c 81588-7 5.9 % 04/14/2018 %Hba1C Pzp317 Gluc Ave 123 mg/dL 04/14/2018 Comp Metabolic Dcu663 NA 140 mEq/L 04/14/2018 Comp Metabolic Bmo067 K 4.1 mEq/L 04/14/2018 Comp Metabolic Drq094 CL 105 mEq/L 04/14/2018 Comp Metabolic Prd366 CO2 28.0 mEq/L 04/14/2018 Comp Metabolic Uem300 AN ION GAP 11 04/14/2018 Comp Metabolic Mlz495 GL UCOSE 112 mg/dL 04/14/2018 Comp Metabolic Vfx954 Cr eat 1.0 mg/dL 04/14/2018 Comp Metabolic Ouk494 eG FR 58 ml/min/1.73m2 04/14 Comp Metabolic Msb549 BUN 20 mg/dL 04/14/2018 Comp Metabolic Zqk640 B/ C Ratio 20.2 Ratio 04/14/2018 Comp Metabolic Qgz682 CA LCIUM 10.0 mg/dL 04/14/2018 Comp Metabolic Imp487 AL K PHOS 51 U/L 04/14/2018 Comp Metabolic Usm254 T(SGOT) 24 U/L 04/14/2018 Comp Metabolic Pif631 AL T(SGPT) 21 U/L 04/14/2018 Comp Metabolic Cdo287 BI LI T 0.8 mg/dL 04/14/2018 Comp Metabolic Kqt394 AL BUMIN 4.2 g/dL 04/14/2018 Comp Metabolic Kjk509 TP RO 7.1 g/dL 04/14/2018 Comp Metabolic Uof182 GL OB 2.9 g/dL 04/14/2018 Comp Metabolic Bjs329 A/ G Ratio 1.5 Ratio 04/14/2018 Comp Metabolic Lrz048 Os mo 283 mOsmo 04/14/2018 Lipid Ord30 CHOL 149 mg/dL 04/14/2018 Lipid Ord30 HDL 49.0 mg/dl 04/14/2018 Lipid Ord30 TRIG 161 mg/dL 04/14/2018 Lipid Ord30 LDL 68 mg/dL 04/14/2018 Lipid Ord30 C/HDL 3.0 Ratio 04/14/2018 Cbc With Differential Ord2 WBC 4.83 [...] 30.7 pg 04/14/2018 Cbc With Differential Ord2 [place]% 10.6 % 04/14/2018 Cbc With Differential Ord2 [...] 1.18 K/ul 04/14/2018 Cbc With Differential Ord2 [place] ABS# 0.5 K/ul 04/14/2018 Cbc With Differential Ord2 Eos ABS# 0.2 K/ul 04/14/2018 Cbc With Differential Ord2 Baso ABS# 0.1 K/ul 04/14/2018 Free T4 Kpx145 FREE T4 1.09 ng/dL 04/14/2018 Tsh Ord6 TSH (3rd IS) 2.36 uIU/mL 04/14/2018 Pt Ytj8599 PT 20.3 seconds 04/14/2018 Pt Gqj1448 INR 1.8 04/14/2018 Pt Kmf2940 Low Intensity - 1.5-2.0 04/14/2018 Pt Jdi1074 Mod intensity - 2.0-3.0 04/14/2018 Pt Voa5799 Hi intensity - 3.0-4.0 04/14/2018 Pt Flq8113 PT 29.3 seconds 02/11/2018 Pt Fev3512 INR 2.8 02/11/2018 Pt Bue0541 Low Intensity - 1.5-2.0 02/11/2018 Pt Roz9546 Mod intensity - 2.0-3.0 02/11/2018 Pt Lrd7563 Hi intensity - 3.0-4.0 02/11/2018 %Hba1C Zoo547 % HbA1c 64763-6 6.0 % 01/05/2018 %Hba1C Lll738 Gluc Ave 126 mg/dL 01/05/2018 Lipid Ord30 CHOL 156 mg/dL 01/05/2018 Lipid Ord30 HDL 48.0 mg/dl 01/05/2018 Lipid Ord30 TRIG 207 mg/dL 01/05/2018 Lipid Ord30 LDL 67 mg/dL 01/05/2018 Lipid Ord30 C/HDL 3.3 Ratio 01/05/2018 Tsh Ord6 TSH (3rd IS) 2.34 uIU/mL 01/05/2018 Pt Iyd6692 PT 20.7 seconds 01/05/2018 Pt Xfl2785 INR 1.8 01/05/2018 Pt Ymq6527 Low Intensity - 1.5-2.0 01/05/2018 Pt Kfe2898 Mod intensity - 2.0-3.0 01/05/2018 Pt Tyi3994 Hi intensity - 3.0-4.0 01/05/2018 Cbc With Differential Ord2 WBC 4.66 K/ul 01/05/2018 Cbc With Differential Ord2 RBC 4.74 M/ul 01/05/2018 Cbc With Differential Ord2 HGB 14.5 g/dl 01/05/2018 Cbc With Differential Ord2 HCT 43.2 % 01/05/2018 Cbc With Differential Ord2 Neut% 56.7 % 01/05/2018 Cbc With Differential Ord2 Lymph% 27.3 % 01/05/2018 Cbc With Differential Ord2 MCV 91.1 fl 01/05/2018 Cbc With Differential Ord2 MCH 30.6 pg 01/05/2018 Cbc With Differential Ord2 [place]% 10.5 % 01/05/2018 Cbc With Differential Ord2 MCHC 33.6 pg 01/05/2018 Cbc With Differential Ord2 Eos% 3.6 % 01/05/2018 Cbc With Differential Ord2 Baso% 1.9 % 01/05/2018 Cbc With Differential Ord2 PLT 177 K/ul 01/05/2018 Cbc With Differential Ord2 Neut ABS# 2.64 K/ul 01/05/2018 Cbc With Differential Ord2 RDW 14.5 % 01/05/2018 Cbc With Differential Ord2 Lymph ABS# 1.27 K/ul 01/05/2018 Cbc With Differential Ord2 [place] ABS# 0.5 K/ul 01/05/2018 Cbc With Differential Ord2 Eos ABS# 0.2 K/ul 01/05/2018 Cbc With Differential Ord2 Baso ABS# 0.1 K/ul 01/05/2018 Free T4 Bhk236 FREE T4 1.05 ng/dL 01/05/2018 Comp Metabolic Hlp216 NA 141 mEq/L 01/05/2018 Comp Metabolic Hgs736 K 3.7 mEq/L 01/05/2018 Comp Metabolic Fck481 CL 102 mEq/L 01/05/2018 Comp Metabolic Vfa626 CO2 29.0 mEq/L 01/05/2018 Comp Metabolic Rnf145 AN ION GAP 14 01/05/2018 Comp Metabolic Kca620 GL UCOSE 136 mg/dL 01/05/2018 Comp Metabolic Ekw037 Cr eat 1.0 mg/dL 01/05/2018 Comp Metabolic Agp198 eG FR 61 ml/min/1.73m2 01/05 Comp Metabolic Cfc696 BUN 22 mg/dL 01/05/2018 Comp Metabolic Agh220 B/ C Ratio 22.9 Ratio 01/05/2018 Comp Metabolic Edf452 CA LCIUM 9.7 mg/dL 01/05/2018 Comp Metabolic Gkk995 AL K PHOS 57 U/L 01/05/2018 Comp Metabolic Xpy954 T(SGOT) 21 U/L 01/05/2018 Comp Metabolic Gnc690 AL T(SGPT) 19 U/L 01/05/2018 Comp Metabolic Ywo293 BI LI T 0.9 mg/dL 01/05/2018 Comp Metabolic Fnd903 AL BUMIN 4.1 g/dL 01/05/2018 Comp Metabolic Mkg285 TP RO 7.1 g/dL 01/05/2018 Comp Metabolic Tyo524 GL OB 3.0 g/dL 01/05/2018 Comp Metabolic Lzu171 A/ G Ratio 1.4 Ratio 01/05/2018 Comp Metabolic Mew195 Os mo 287 mOsmo 01/05/2018 Pt Umf0585 PT 28.3 seconds 11/26/2017 Pt Zte3895 INR 2.6 11/26/2017 Pt Jwt3316 Low Intensity - 1.5-2.0 11/26/2017 Pt Jgg2512 Mod intensity - 2.0-3.0 11/26/2017 Pt Oni7313 Hi intensity - 3.0-4.0 11/26/2017 Pt Tvp1607 PT 36.5 seconds 11/19/2017 Pt Gch2305 INR 3.6 11/19/2017 Pt Oow7272 Low Intensity - 1.5-2.0 11/19/2017 Pt Zap1640 Mod intensity - 2.0-3.0 11/19/2017 Pt Tdg3094 Hi intensity - 3.0-4.0 11/19/2017 Pt Tsk1583 PT 22.9 seconds 10/15/2017 Pt Orn3781 INR 2.0 10/15/2017 Pt Xws3468 Low Intensity - 1.5-2.0 10/15/2017 Pt Lef2409 Mod intensity - 2.0-3.0 10/15/2017 Pt Fga9955 Hi intensity - 3.0-4.0 10/15/2017 Pt Cfe5937 PT 25.9 seconds 10/01/2017 Pt Erp0280 INR 2.4 10/01/2017 Pt Dfe1558 Low Intensity - 1.5-2.0 10/01/2017 Pt Leq7295 Mod intensity - 2.0-3.0 10/01/2017 Pt Sut9634 Hi intensity - 3.0-4.0 10/01/2017 Pt Hou6190 PT 20.6 seconds 09/24/2017 Pt Eco9299 INR 1.8 09/24/2017 Pt Onl7074 Low Intensity - 1.5-2.0 09/24/2017 Pt Tzs3653 Mod intensity - 2.0-3.0 09/24/2017 Pt Bmm3552 Hi intensity - 3.0-4.0 09/24/2017 Pt Spc9989 PT 21.0 seconds 09/15/2017 Pt Zko7939 INR 1.8 09/15/2017 Pt Mrm5628 Low Intensity - 1.5-2.0 09/15/2017 Pt Wfb9231 Mod intensity - 2.0-3.0 09/15/2017 Pt Yoa1203 Hi intensity - 3.0-4.0 09/15/2017 Pt Pnb4918 PT 19.0 seconds 09/03/2017 Pt Vet0684 INR 1.6 09/03/2017 Pt Noa6921 Low Intensity - 1.5-2.0 09/03/2017 Pt Qvp0752 Mod intensity - 2.0-3.0 09/03/2017 Pt Yba1990 Hi intensity - 3.0-4.0 09/03/2017 Pt Lkx5408 PT 17.6 seconds 08/23/2017 Pt Icd8330 INR 1.5 08/23/2017 Pt Zqs1377 Low Intensity - 1.5-2.0 08/23/2017 Pt Hoi4749 Mod intensity - 2.0-3.0 08/23/2017 Pt Bsj5808 Hi intensity - 3.0-4.0 08/23/2017 Pt Tic4601 PT 12.7 seconds 08/20/2017 Pt Gib1996 INR 1.0 08/20/2017 Pt Pya0944 Low Intensity - 1.5-2.0 08/20/2017 Pt Vxj6377 Mod intensity - 2.0-3.0 08/20/2017 Pt Deo9157 Hi intensity - 3.0-4.0 08/20/2017 Pt Pde5350 PT 12.9 seconds 08/17/2017 Pt Joj5558 INR 1.0 08/17/2017 Pt Sff8120 Low Intensity - 1.5-2.0 08/17/2017 Pt Pdc3055 Mod intensity - 2.0-3.0 08/17/2017 Pt Jjw7549 Hi intensity - 3.0-4.0 08/17/2017 Pt Dhi3152 PT 18.5 seconds 08/10/2017 Pt Xus7860 INR 1.6 08/10/2017 Pt Dfm5437 Low Intensity - 1.5-2.0 08/10/2017 Pt Hcs2038 Mod intensity - 2.0-3.0 08/10/2017 Pt Sci9980 Hi intensity - 3.0-4.0 08/10/2017 Comp Metabolic Ppe418 NA 138 mEq/L 05/27/2017 Comp Metabolic Adg414 K 4.1 mEq/L 05/27/2017 Comp Metabolic Dsb342 CL 101 mEq/L 05/27/2017 Comp Metabolic Rjz570 CO2 31.0 mEq/L 05/27/2017 Comp Metabolic Fpk964 AN ION GAP 10 05/27/2017 Comp Metabolic Ubb395 GL UCOSE 117 mg/dL 05/27/2017 Comp Metabolic Whz123 Cr eat 0.9 mg/dL 05/27/2017 Comp Metabolic Zvl346 eG FR 62 ml/min/1.73m2 05/27 Comp Metabolic Vvm133 BUN 25 mg/dL 05/27/2017 Comp Metabolic Qlk021 B/ C Ratio 26.6 Ratio 05/27/2017 Comp Metabolic Pcj077 CA LCIUM 9.5 mg/dL 05/27/2017 Comp Metabolic Ynu417 AL K PHOS 73 U/L 05/27/2017 Comp Metabolic Yzi960 T(SGOT) 18 U/L 05/27/2017 Comp Metabolic Vdf211 AL T(SGPT) 12 U/L 05/27/2017 Comp Metabolic Kuh885 BI LI T 0.5 mg/dL 05/27/2017 Comp Metabolic Eyu783 AL BUMIN 4.1 g/dL 05/27/2017 Comp Metabolic Cik546 TP RO 7.1 g/dL 05/27/2017 Comp Metabolic Mdr558 GL OB 3.0 g/dL 05/27/2017 Comp Metabolic Hwh964 A/ G Ratio 1.3 Ratio 05/27/2017 Comp Metabolic Ivp179 Os mo 281 mOsmo 05/27/2017 Pt Xqx8664 PT 28.2 seconds 05/27/2017 Pt Yot4025 INR 2.6 05/27/2017 Pt Txh7240 Low Intensity - 1.5-2.0 05/27/2017 Pt Mnm8556 Mod intensity - 2.0-3.0 05/27/2017 Pt Xyy3794 Hi intensity - 3.0-4.0 05/27/2017 Lipid Ord30 CHOL 167 mg/dL 05/27/2017 Lipid Ord30 HDL 49.0 mg/dl 05/27/2017 Lipid Ord30 TRIG 347 mg/dL 05/27/2017 Lipid Ord30 LDL 49 mg/dL 05/27/2017 Lipid Ord30 C/HDL 3.4 Ratio 05/27/2017 Magnesium Ord90 Mag 1.4 mg/dL 05/27/2017 %Hba1C Hch407 % HbA1c 24282-9 5.9 % 05/27/2017 %Hba1C Tag213 Gluc Ave 123 mg/dL 05/27/2017 Free T4 Ucz389 FREE T4 0.91 ng/dL 05/27/2017 Tsh Ord6 hTSH II 2.08 uIU/mL [...] 29.3 pg 05/27/2017 Cbc With Differential Ord2 [place]% 8.1 % 05/27/2017 Cbc With Differential Ord2 [...] 1.11 K/ul 05/27/2017 Cbc With Differential Ord2 [place] ABS# 0.6 K/ul 05/27/2017 Cbc With Differential Ord2 Eos ABS# 0.2 K/ul 05/27/2017 Cbc With Differential Ord2 Baso ABS# 0.1 K/ul 05/27/2017 Pt Xjc9215 PT 29.2 seconds 04/16/2017 Pt Spr0776 INR 2.7 04/16/2017 Pt Log8973 Low Intensity - 1.5-2.0 04/16/2017 Pt Dqo0453 Mod intensity - 2.0-3.0 04/16/2017 Pt Kqn1438 Hi intensity - 3.0-4.0 04/16/2017 Pt Fvf8625 PT 30.7 seconds 03/31/2017 Pt Oyf8159 INR 2.9 03/31/2017 Pt Fiv7507 Low Intensity - 1.5-2.0 03/31/2017 Pt Tzm1191 Mod intensity - 2.0-3.0 03/31/2017 Pt Dul7608 Hi intensity - 3.0-4.0 03/31/2017 Pt Zkl3419 PT 21.3 seconds 03/26/2017 Pt Lzh4365 INR 1.9 03/26/2017 Pt Zit9268 Low Intensity - 1.5-2.0 03/26/2017 Pt Nus4184 Mod intensity - 2.0-3.0 03/26/2017 Pt Cad3194 Hi intensity - 3.0-4.0 03/26/2017 Pt Cac6218 PT 19.8 seconds 03/22/2017 Pt Tlh6082 INR 1.7 03/22/2017 Pt Dzo5664 Low Intensity - 1.5-2.0 03/22/2017 Pt Ngb8869 Mod intensity - 2.0-3.0 03/22/2017 Pt Qbu7171 Hi intensity - 3.0-4.0 03/22/2017 Pt Muj1390 PT 15.6 seconds 03/19/2017 Pt Ejy0904 INR 1.3 03/19/2017 Pt Him7583 Low Intensity - 1.5-2.0 03/19/2017 Pt Jjy1729 Mod intensity - 2.0-3.0 03/19/2017 Pt Ljn2696 Hi intensity - 3.0-4.0 03/19/2017 Pt Xaw5507 PT 13.7 seconds 03/15/2017 Pt Aex4473 INR 1.1 03/15/2017 Pt Kyi0233 Low Intensity - 1.5-2.0 03/15/2017 Pt Dag7132 Mod intensity - 2.0-3.0 03/15/2017 Pt Xrs7394 Hi intensity - 3.0-4.0 03/15/2017 Pt Osz9061 PT 25.8 seconds 01/28/2017 Pt Wdy6422 INR 2.4 01/28/2017 Pt Boj9024 Low Intensity - 1.5-2.0 01/28/2017 Pt Cqz2879 Mod intensity - 2.0-3.0 01/28/2017 Pt Vdu3575 Hi intensity - 3.0-4.0 01/28/2017 %Hba1C Xjz743 % HbA1c 56768-5 6.4 % 10/23/2016 %Hba1C Aog160 Gluc Ave 137 mg/dL 10/23/2016 Comp Metabolic Jpp714 NA 138 mEq/L 10/23/2016 Comp Metabolic Hzw024 K 3.4 mEq/L 10/23/2016 Comp Metabolic Dbs645 CL 100 mEq/L 10/23/2016 Comp Metabolic Bfs313 CO2 30.0 mEq/L 10/23/2016 Comp Metabolic Hrj172 AN ION GAP 11 10/23/2016 Comp Metabolic Nzc063 GL UCOSE 139 mg/dL 10/23/2016 Comp Metabolic Ayb119 Cr eat 0.9 mg/dL 10/23/2016 Comp Metabolic Csd271 eG FR 62 ml/min/1.73m2 10/23 Comp Metabolic Afa182 BUN 22 mg/dL 10/23/2016 Comp Metabolic Gvg179 B/ C Ratio 23.4 Ratio 10/23/2016 Comp Metabolic Cqv764 CA LCIUM 8.7 mg/dL 10/23/2016 Comp Metabolic Nuz732 AL K PHOS 66 U/L 10/23/2016 Comp Metabolic Lkk107 T(SGOT) 20 U/L 10/23/2016 Comp Metabolic Awg155 AL T(SGPT) 10 U/L 10/23/2016 Comp Metabolic Grx010 BI LI T 0.5 mg/dL 10/23/2016 Comp Metabolic Lef415 AL BUMIN 3.5 g/dL 10/23/2016 Comp Metabolic Dzi653 TP RO 6.3 g/dL 10/23/2016 Comp Metabolic Pbu419 GL OB 2.8 g/dL 10/23/2016 Comp Metabolic Gje693 A/ G Ratio 1.3 Ratio 10/23/2016 Comp Metabolic Boe130 Os mo 281 mOsmo 10/23/2016 Pt Jel4770 PT 26.8 seconds 10/23/2016 Pt Duq5352 INR 2.7 10/23/2016 Pt Ufx2545 Low Intensity - 1.5-2.0 10/23/2016 Pt Ufe7030 Mod intensity - 2.0-3.0 10/23/2016 Pt Uac0099 Hi intensity - 3.0-4.0 10/23/2016 Pt Rly4776 PT 28.3 seconds 09/25/2016 Pt Vfb9511 INR 2.8 09/25/2016 Pt Srf9349 Low Intensity - 1.5-2.0 09/25/2016 Pt Hcl0142 Mod intensity - 2.0-3.0 09/25/2016 Pt Qpv8442 Hi intensity - 3.0-4.0 09/25/2016 Metabolic Ord15 [...] Metabolic Ord15 CALCIUM 8.8 mg/dL 09/25/2016 Pt Jip9570 PT 30.6 seconds 09/11/2016 Pt Pes2647 INR 3.2 09/11/2016 Pt Dwv8569 Low Intensity - 1.5-2.0 09/11/2016 Pt Pjj4214 Mod intensity - 2.0-3.0 09/11/2016 Pt Kre8491 Hi intensity - 3.0-4.0 09/11/2016 Comp Metabolic Juy455 NA 138 mEq/L 09/11/2016 Comp Metabolic Wwp430 K 4.4 mEq/L 09/11/2016 Comp Metabolic Gas401 CL 103 mEq/L 09/11/2016 Comp Metabolic Zra056 CO2 31.0 mEq/L 09/11/2016 Comp Metabolic Vhy387 AN ION GAP 8 09/11/2016 Comp Metabolic Yvc604 GL UCOSE 146 mg/dL 09/11/2016 Comp Metabolic Cbv438 Cr eat 1.0 mg/dL 09/11/2016 Comp Metabolic Tzb190 eG FR 60 ml/min/1.73m2 09/11 Comp Metabolic Nmj539 BUN 16 mg/dL 09/11/2016 Comp Metabolic Qyx287 B/ C Ratio 16.5 Ratio 09/11/2016 Comp Metabolic Qty814 CA LCIUM 8.7 mg/dL 09/11/2016 Comp Metabolic Tuf160 AL K PHOS 52 U/L 09/11/2016 Comp Metabolic Rao083 T(SGOT) 19 U/L 09/11/2016 Comp Metabolic Cgy173 AL T(SGPT) 11 U/L 09/11/2016 Comp Metabolic Cth016 BI LI T 0.7 mg/dL 09/11/2016 Comp Metabolic Jzc708 AL BUMIN 3.3 g/dL 09/11/2016 Comp Metabolic Rtt023 TP RO 5.8 g/dL 09/11/2016 Comp Metabolic Rvd201 GL OB 2.5 g/dL 09/11/2016 Comp Metabolic Tbm666 A/ G Ratio 1.3 Ratio 09/11/2016 Comp Metabolic Tyv195 Os mo 280 mOsmo 09/11/2016 Pt Uvr4276 PT 27.2 seconds 08/21/2016 Pt Fwv0236 INR 2.7 08/21/2016 Pt Azq1663 Low Intensity - 1.5-2.0 08/21/2016 Pt Noq8149 Mod intensity - 2.0-3.0 08/21/2016 Pt Xee4853 Hi intensity - 3.0-4.0 08/21/2016 C-Reactive Protein Qnt Crqnt CRP 0.1 mg/dl 08/21/2016 Comp Metabolic Nxv208 NA 139 mEq/L 08/21/2016 Comp Metabolic Gpi895 K 4.1 mEq/L 08/21/2016 Comp Metabolic Wnz418 CL 102 mEq/L 08/21/2016 Comp Metabolic Bhf574 CO2 30.0 mEq/L 08/21/2016 Comp Metabolic Ffc379 AN ION GAP 11 08/21/2016 Comp Metabolic Iot351 GL UCOSE 148 mg/dL 08/21/2016 Comp Metabolic Srq186 Cr eat 1.0 mg/dL 08/21/2016 Comp Metabolic Muh080 eG FR 55 ml/min/1.73m2 08/21 Comp Metabolic Gye622 BUN 21 mg/dL 08/21/2016 Comp Metabolic Qys099 B/ C Ratio 20.2 Ratio 08/21/2016 Comp Metabolic Gnx660 CA LCIUM 9.4 mg/dL 08/21/2016 Comp Metabolic Wtm874 AL K PHOS 63 U/L 08/21/2016 Comp Metabolic Jgw516 T(SGOT) 23 U/L 08/21/2016 Comp Metabolic Zhr594 AL T(SGPT) 16 U/L 08/21/2016 Comp Metabolic Pqb052 BI LI T 0.6 mg/dL 08/21/2016 Comp Metabolic Rzk779 AL BUMIN 3.9 g/dL 08/21/2016 Comp Metabolic Vxy223 TP RO 6.8 g/dL 08/21/2016 Comp Metabolic Bty434 GL OB 2.9 g/dL 08/21/2016 Comp Metabolic Qtb971 A/ G Ratio 1.4 Ratio 08/21/2016 Comp Metabolic Qwm400 Os mo 283 mOsmo 08/21/2016 Sed Rate Ord21 ESR 16 mm/hr 08/21/2016 Magnesium Ord90 Mag 1.9 mg/dL 08/21/2016 Pt Tel4592 PT 25.9 seconds 06/17/2016 Pt Cna2319 INR 2.5 06/17/2016 Pt Lsq0662 Low Intensity - 1.5-2.0 06/17/2016 Pt Nfr2000 Mod intensity - 2.0-3.0 06/17/2016 Pt Gto5459 Hi intensity - 3.0-4.0 06/17/2016 %Hba1C Klb984 % HbA1c 92720-4 6.2 % 06/08/2016 %Hba1C Jki288 Gluc Ave 131 mg/dL 06/08/2016 Comp Metabolic Fix873 NA 138 mEq/L 06/08/2016 Comp Metabolic Jln249 K 3.9 mEq/L 06/08/2016 Comp Metabolic Evz797 CL 105 mEq/L 06/08/2016 Comp Metabolic Feb070 CO2 27.0 mEq/L 06/08/2016 Comp Metabolic Dsc468 AN ION GAP 10 06/08/2016 Comp Metabolic Tgo699 GL UCOSE 127 mg/dL 06/08/2016 Comp Metabolic Iwm352 Cr eat 1.0 mg/dL 06/08/2016 Comp Metabolic Bsd989 eG FR 59 ml/min/1.73m2 06/08 Comp Metabolic Yzn512 BUN 19 mg/dL 06/08/2016 Comp Metabolic Itm448 B/ C Ratio 19.4 Ratio 06/08/2016 Comp Metabolic Ufh859 CA LCIUM 9.2 mg/dL 06/08/2016 Comp Metabolic Wzi153 AL K PHOS 77 U/L 06/08/2016 Comp Metabolic Fsl343 T(SGOT) 19 U/L 06/08/2016 Comp Metabolic Lim482 AL T(SGPT) 13 U/L 06/08/2016 Comp Metabolic Ahf484 BI LI T 0.5 mg/dL 06/08/2016 Comp Metabolic Ynx809 AL BUMIN 3.8 g/dL 06/08/2016 Comp Metabolic Ryq122 TP RO 6.6 g/dL 06/08/2016 Comp Metabolic Jhh228 GL OB 2.8 g/dL 06/08/2016 Comp Metabolic Tpz398 A/ G Ratio 1.4 Ratio 06/08/2016 Comp Metabolic Nkt721 Os mo 280 mOsmo 06/08/2016 Pt Dvb4288 PT 36.1 seconds 06/08/2016 Pt Npu6020 INR 3.9 06/08/2016 Pt Jcu0582 Low Intensity - 1.5-2.0 06/08/2016 Pt Pjh1925 Mod intensity - 2.0-3.0 06/08/2016 Pt Rxm6141 Hi intensity - 3.0-4.0 06/08/2016 Lipid Ord30 CHOL 149 mg/dL 06/08/2016 Lipid Ord30 HDL 46.0 mg/dl 06/08/2016 Lipid Ord30 TRIG 279 mg/dL 06/08/2016 Lipid Ord30 LDL 47 mg/dL 06/08/2016 Lipid Ord30 C/HDL 3.2 Ratio 06/08/2016 Tsh Ord6 hTSH II 2.13 uIU/mL 06/08/2016 Free T4 Amb822 FREE T4 0.79 ng/dL 06/08/2016 Cbc With [...] 80.8 fl 06/08/2016 Cbc With Differential Ord2 [place]% 12.0 % 06/08/2016 Cbc With Differential Ord2 [...] 1.40 K/ul 06/08/2016 Cbc With Differential Ord2 [place] ABS# 0.7 K/ul 06/08/2016 Cbc With Differential Ord2 Eos ABS# 0.3 K/ul 06/08/2016 Cbc With Differential Ord2 Baso ABS# 0.1 K/ul 06/08/2016 Pt Nxd9577 PT 30.9 seconds 02/12/2016 Pt Nmm6596 INR 3.2 02/12/2016 Pt Lba9300 Low Intensity - 1.5-2.0 02/12/2016 Pt Etl7451 Mod intensity - 2.0-3.0 02/12/2016 Pt Zqn2324 Hi intensity - 3.0-4.0 02/12/2016 Pt Khe5767 PT 26.2 seconds 09/27/2015 Pt Exo4845 INR 2.5 09/27/2015 Pt Sjd8396 Low Intensity - 1.5-2.0 09/27/2015 Pt Gnb6394 Mod intensity - 2.0-3.0 09/27/2015 Pt Cbd0836 Hi intensity - 3.0-4.0 09/27/2015 Tsh Ord6 hTSH II 0.37 uIU/mL 09/27/2015 %Hba1C Ubp818 % HbA1c 40641-8 6.4 % 09/27/2015 %Hba1C Giz189 Gluc Ave 137 mg/dL 09/27/2015 Free T4 Rcn908 FREE T4 1.24 ng/dL 09/27/2015 Pt Xin6563 PT 27.6 seconds 2015 Pt Ivj5347 INR 2.7 2015 Pt Ctg4805 Low Intensity - 1.5-2.0 2015 Pt Ris2650 Mod intensity - 2.0-3.0 2015 Pt Yio6534 Hi intensity - 3.0-4.0 2015 %Hba1C Gls934 % HbA1c 87837-8 6.1 % 06/11/2015 %Hba1C Nao973 Gluc Ave 128 mg/dL 06/11/2015 Cbc With [...] Ord2 RDW 15.8 % 06/10/2015 Comp Metabolic Oaj997 NA 139 mEq/L 06/10/2015 Comp Metabolic Tfb778 K 4.1 mEq/L 06/10/2015 Comp Metabolic Ktj936 CL 105 mEq/L 06/10/2015 Comp Metabolic Dkp465 CO2 27.0 mEq/L 06/10/2015 Comp Metabolic Uqg293 AN ION GAP 11 06/10/2015 Comp Metabolic Eua308 GL UCOSE 127 mg/dL 06/10/2015 Comp Metabolic Ass280 Cr eat 1.0 mg/dL 06/10/2015 Comp Metabolic Mjs041 eG FR 59 ml/min/1.73m2 06/10 Comp Metabolic Ble904 BUN 21 mg/dL 06/10/2015 Comp Metabolic Epq138 B/ C Ratio 21.2 Ratio 06/10/2015 Comp Metabolic Kxe476 CA LCIUM 9.2 mg/dL 06/10/2015 Comp Metabolic Gok203 AL K PHOS 87 U/L 06/10/2015 Comp Metabolic Afy045 T(SGOT) 20 U/L 06/10/2015 Comp Metabolic Ihc836 AL T(SGPT) 17 U/L 06/10/2015 Comp Metabolic Fua824 BI LI T 0.4 mg/dL 06/10/2015 Comp Metabolic Sxy762 AL BUMIN 4.1 g/dL 06/10/2015 Comp Metabolic Bbz066 TP RO 7.2 g/dL 06/10/2015 Comp Metabolic Yki619 GL OB 3.1 g/dL 06/10/2015 Comp Metabolic Kgr983 A/ G Ratio 1.3 Ratio 06/10/2015 Comp Metabolic Gzl362 Os mo 282 mOsmo 06/10/2015 Tsh Ord6 hTSH II 0.86 uIU/mL 06/10/2015 Lipid Ord30 CHOL 161 mg/dL 06/10/2015 Lipid Ord30 HDL 49.0 mg/dl 06/10/2015 Lipid Ord30 TRIG 208 mg/dL 06/10/2015 Lipid Ord30 LDL 70 mg/dL 06/10/2015 Lipid Ord30 C/HDL 3.3 Ratio 06/10/2015 Pt Xqj1038 PT 25.0 seconds 04/09/2015 Pt Htk1555 INR 2.4 04/09/2015 Pt Ssk0356 Low Intensity - 1.5-2.0 04/09/2015 Pt Vin4732 Mod intensity - 2.0-3.0 04/09/2015 Pt Zgi2729 Hi intensity - 3.0-4.0 04/09/2015 Comp Metabolic Rei817 NA 138 mEq/L 01/22/2015 Comp Metabolic Ene944 K 4.1 mEq/L 01/22/2015 Comp Metabolic Iyh994 CL 104 mEq/L 01/22/2015 Comp Metabolic Axu904 CO2 29.0 mEq/L 01/22/2015 Comp Metabolic Pjr633 AN ION GAP 9 01/22/2015 Comp Metabolic Odn324 GL UCOSE 106 mg/dL 01/22/2015 Comp Metabolic Dps439 Cr eat 0.9 mg/dL 01/22/2015 Comp Metabolic Wvj193 eG FR 63 ml/min/1.73m2 01/22 Comp Metabolic Zyq404 BUN 21 mg/dL 01/22/2015 Comp Metabolic Qmx476 B/ C Ratio 22.3 Ratio 01/22/2015 Comp Metabolic Bvc040 CA LCIUM 9.4 mg/dL 01/22/2015 Comp Metabolic Hzd891 AL K PHOS 83 U/L 01/22/2015 Comp Metabolic Mzj879 T(SGOT) 23 U/L 01/22/2015 Comp Metabolic Xbf615 AL T(SGPT) 18 U/L 01/22/2015 Comp Metabolic Cqh388 BI LI T 0.8 mg/dL 01/22/2015 Comp Metabolic Ynx626 AL BUMIN 4.2 g/dL 01/22/2015 Comp Metabolic Nbp841 TP RO 7.3 g/dL 01/22/2015 Comp Metabolic Oqy240 GL OB 3.1 g/dL 01/22/2015 Comp Metabolic Zqb333 A/ G Ratio 1.4 Ratio 01/22/2015 Comp Metabolic Ena436 Os mo 279 mOsmo 01/22/2015 Free T4 Veq766 FREE T4 1.05 ng/dL 01/22/2015 Pt Hnz4943 PT 27.2 seconds 01/22/2015 Pt Iny8917 INR 2.6 01/22/2015 Pt Cpm3774 Low Intensity - 1.5-2.0 01/22/2015 Pt Afk1538 Mod intensity - 2.0-3.0 01/22/2015 Pt Exm8355 Hi intensity - 3.0-4.0 01/22/2015 Cbc With [...] Differential Ord2 RDW 15.2 % 01/22/2015 B12 Yqi892 B12 402.00 pg/ml 01/22/2015 Tsh Ord6 hTSH [...] Date URINALYSIS NONAUTO W /O SCOPE CPT-4: 57993 03/05/2017 Vital Signs Date Vital 04/14/2018 Blood Pressure 1: 116/78 Code: 8480-6 BMI: 41.6 Code: 68102-5 Heart Rate 1: 72 bpm Height: 5'1" SpO2: 98% Weight: 220 lbs 01/18/2018 Blood Pressure 1: 132/74 Code: 8480-6 BMI: 43.5 Code: 15068-9 Heart Rate 1: 70 bpm Height: 5'1" SpO2: 97% Weight: 230 lbs 01/04/2018 Blood Pressure 1: 134/76 Code: 8480-6 BMI: 42.7 Code: 25955-6 Heart Rate 1: 83 bpm Height: 5'1" SpO2: 98% Weight: 226 lbs 09/23/2017 Blood Pressure 1: 124/76 Code: 8480-6 BMI: 42.3 Code: 55994-5 Heart Rate 1: 94 bpm Height: 5'1" SpO2: 96% Weight: 224 lbs 05/27/2017 Blood Pressure 1: 146/78 Code: 8480-6 BMI: 41.4 Code: 97478-4 Heart Rate 1: 85 bpm Height: 5'1" SpO2: 98% Weight: 219 lbs 02/24/2017 Blood Pressure 1: 138/66 Code: 8480-6 BMI: 41.4 Code: 15851-9 Heart Rate 1: 78 bpm Height: 5'1" SpO2: 97% Weight: 219 lbs 11/02/2016 Blood Pressure 1: 144/72 Code: 8480-6 BMI: 46.1 Code: 16912-1 Heart Rate 1: 78 bpm Height: 5'1" SpO2: 98% Weight: 244 lbs 09/30/2016 Blood Pressure 1: 130/76 Code: 8480-6 BMI: 45.0 Code: 14292-3 Heart Rate 1: 86 bpm Height: 5'1" SpO2: 98% Weight: 238 lbs 09/10/2016 Blood Pressure 1: 136/68 Code: 8480-6 BMI: 46.3 Code: 62791-8 Heart Rate 1: 83 bpm Height: 5'1" SpO2: 98% Weight: 245 lbs 08/20/2016 Blood Pressure 1: 142/78 Code: 8480-6 BMI: 45.3 Code: 85190-2 Heart Rate 1: 84 bpm Height: 5'1" SpO2: 99% Weight: 240 lbs 06/08/2016 Blood Pressure 1: 134/76 Code: 8480-6 BMI: 44.2 Code: 84562-6 Heart Rate 1: 86 bpm Height: 5'1" SpO2: 96% Weight: 234 lbs 04/02/2016 Blood Pressure 1: 142/70 Code: 8480-6 BMI: 44.6 Code: 16400-6 Heart Rate 1: 78 bpm Height: 5'1" SpO2: 97% Weight: 236 lbs 01/14/2016 Blood Pressure 1: 146/72 Code: 8480-6 BMI: 44.2 Code: 39785-6 Heart Rate 1: 86 bpm Height: 5'1" SpO2: 96% Weight: 234 lbs 10/02/2015 Blood Pressure 1: 158/76 Code: 8480-6 BMI: 44.2 Code: 86003-3 Heart Rate 1: 67 bpm Height: 5'1" SpO2: 97% Weight: 234 lbs 07/15/2015 Blood Pressure 1: 200/90 Code: 8480-6 Blood Pressure 1: 148/78 Code: 8480-6 BMI: 44.0 Code: 16859-8 Heart Rate 1: 89 bpm Height: 5'1" SpO2: 97% Weight: 233 lbs 06/10/2015 Blood Pressure 1: 140/82 Code: 8480-6 BMI: 44.0 Code: 68010-2 Heart Rate 1: 78 bpm Height: 5'1" [...] Encounters Encounter Performer Loca tion Codes Date ([id number]) [id number] EST. 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 [place], LEVEL III Diagnosis: Localized edema[ICD10: R60.0] Diagnosis: Gastro-esophageal reflux disease without esophagitis[ICD10: K21.9] Edna Almanza MD, [facility] CPT-4: 50999 01/18/2018 [id number]) 19266 EST. [place], LEVEL IV Diagnosis: Gastro-esophageal reflux disease without esophagitis[ICD10: K21.9] Diagnosis: Localized edema[ICD10: R60.0] Diagnosis: Essential (primary) hypertension[ICD10: I10] Diagnosis: Hypothyroidism, unspecified[ICD10: E03.9] Diagnosis: Impaired fasting glucose[ICD10: R73.01] Edna Almanza MD, [facility] CPT-4: 63526 01/04/2018 ([id number]) 63178 EST. P ATIENT, LEVEL IV Diagnosis: Essential (primary) hypertension[ICD10: I10] Diagnosis: care home (current) use of anticoagulants[ICD10: Z79.01] Diagnosis: Incisional hernia without obstruction or gangrene[ICD10: K43.2] Diagnosis: Right lower quadrant pain[ICD10: R10.31] Sarai Almanza MD, [facility] CPT-4: 60850 09/23/2017 ([id number]) 95237 EST. P ATIENT, LEVEL IV Diagnosis: Essential (primary) hypertension[ICD10: I10] Diagnosis: Mixed hyperlipidemia[ICD10: E78.2] Diagnosis: Hypothyroidism, unspecified[ICD10: E03.9] Diagnosis: Impaired fasting glucose[ICD10: R73.01] Diagnosis: care home (current) use of anticoagulants[ICD10: Z79.01] Edna Almanza MD, [facility] CPT-4: 05756 05/27/2017 79134 EST. PATIENT, LEVEL III Diagnosis: Pain in right hip[ICD10: M25.551] Nata Almanza MD, [facility] CPT-4: 53864 02/24/2017 ([id number]) 71480 EST. P ATIENT, LEVEL IV Diagnosis: Essential (primary) hypertension[ICD10: I10] Diagnosis: Localized edema[ICD10: R60.0] Diagnosis: Pain in right hip[ICD10: M25.551] Sarai Almanza MD, [facility] CPT-4: 50031 11/02/2016 ([id number]) 29806 EST. P ATIENT, LEVEL IV Diagnosis: Essential (primary) hypertension[ICD10: I10] Diagnosis: Localized edema[ICD10: R60.0] Sarai Almanza MD, [facility] CPT-4: 94608 09/30/2016 56906 EST. PATIENT, LEVEL IV Diagnosis: Localized edema[ICD10: R60.0] Diagnosis: Pain in joints of left hand[ICD10: M25.542] Diagnosis: Pain in joints of right hand[ICD10: M25.541] Nata Almanza MD, [facility] CPT-4: 77054 09/10/2016 36480 EST. PATIENT, LEVEL IV Diagnosis: Localized edema[ICD10: R60.0] Diagnosis: Pain in joints of left hand[ICD10: M25.542] Diagnosis: Pain in joints of right hand[ICD10: M25.541] Diagnosis: Other fatigue[ICD10: R53.83] Nata Almanza MD, [facility] CPT-4: 79754 08/20/2016 [id number] EST. PATIENT, LEVEL IV Diagnosis: Essential (primary) hypertension[ICD10: I10] Diagnosis: Other jail (current) drug therapy[ICD10: Z79.899] Diagnosis: Tinnitus, bilateral[ICD10: H93.13] Nata Almanza MD, [facility] CPT-4: 79095 06/08/2016 58819 EST. PATIENT, LEVEL IV Diagnosis: Other allergic rhinitis[ICD10: J30.89] Diagnosis: Acute laryngopharyngitis[ICD10: J06.0] Nata Almanza MD, [facility] CPT-4: 63499 04/02/2016 94550 EST. PATIENT, LEVEL IV Diagnosis: Left upper quadrant pain[ICD10: R10.12] Nata Almanza MD, [facility] CPT-4: 01329 01/14/2016 19827 EST. PATIENT, LEVEL IV Diagnosis: Pain in left shoulder[ICD10: M25.512] Diagnosis: Body mass index (BMI) 40.0-44.9, adult[ICD10: Z68.41] Nata Almanza MD, [facility] CPT-4: 67225 10/02/2015 73834 EST. PATIENT, LEVEL IV Diagnosis: Pain in left leg[ICD10: M79.605] Diagnosis: Other jail (current) drug therapy[ICD10: Z79.899] Nata Almanza MD, [facility] CPT-4: 85883 07/15/2015 ([id number]) 82740 EST. 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] [facility] CPT-4: 42536 06/10/2015 ([id number]) [facility] - LEVEL 4 Diagnosis: ESSENTIAL HYPERTENSION[ICD9: 401.9] Diagnosis: HYPOTHYROIDISM[ICD9: 244.9] Diagnosis: ENCNTR LONG-RX USE NEC[ICD9: V58.69] Diagnosis: HYPERLIPIDEMIA[ICD9: 272.4] Diagnosis: Vitamin B12 deficiency[ICD9: 266.2] Diagnosis: Status post gastric surgery[ICD9: V45.89] Diagnosis: Snoring[ICD9: 786.09] [facility] CPT-4: 60209 01/22/2015 Plan of Care Planned Activity Notes C odes Status Date Visit Plan: Hypertension - well alesha khaliled [...] A1C 04/14/2018 Appointment: Edna Douglas WPtel: [address] [place], [place] [phone] (15 min) Moderate 04/14/2018 Patient Education: Patient [...] to further attempt to reduce peripheral edema. RLFH-otystgio-glqsmqls prilosec BID and carafate QID -discussed low spice, low acidic diet 01/18/2018 Appointment: Edna Douglas WPtel: [facility] [place] [phone] (15 min) Moderate 01/18/2018 Patient Education: Patient [...] of control. 01/04/2018 Appointment: Ed[facility] Douglas [facility]Ptel[phone] (30 min) Complex 01/04/2018 Patient Education: Patient Medication Summary Completed 01/04/2018 Care Plan: SCREENINGMAMMOGRAPHYDIGITAL LOINC : 38995-1 Pending 01/04/2018 Visit Plan: Abdominal hernia - not able to be taken to surgery by local providers and pt has been seen at [facility] and that surgeon felt like [...] at home. 09/23/2017 Appointment: Sar[facility]manza [facility]Ptel[facility] (15 min) Moderate 09/23/2017 Patient [...] to medications. 05/27/2017 Appointment: Edna Douglas WPtel[phone] [place] (30 min) Complex 05/27/2017 Patient [...] [place]. 02/24/2017 Appointment: Nata Hsu WPtel[facility] [phone] [facility] (30 min) Complex 02/24/2017 Patient Education: [...] Appointment: Sar[facility] Almanza [facility]el[facility] [phone] [facility] [place] (15 min) Moderate 11/02/2016 Patient [...] 09/30/2016 Appointment: Sarai Almanza WPtel: [phone] [facility] (15 min) Moderate 09/30/2016 Patient [...] edema. 09/10/2016 Appointment: Nata Hsu WPtel: [facility] (30 min) Complex 09/10/2016 Patient Education: Patient [...] peripheral edema. 08/20/2016 Appointment: Nata Hsu WPtel: [facility] (30 min) Complex 08/20/2016 Patient Education: Patient Medication Summary Completed 08/20/2016 Referral: Otf Lee [id number] Referral Initiated 07/02/2016 Visit Plan: Chronic Anticoagulant [...] 06/08/2016 Care Plan: Referral Order SNOMED-CT : [id number] Pending 06/08/2016 Visit Plan: URI - Pt [...] allergy spray. 04/02/2016 Appointment: Nata Hsu WPtel: [facility] (30 min) Complex 04/02/2016 Patient Education: Patient [...] acute pain 01/14/2016 Appointment: Edna Douglas WPtel: [phone] (30 min) Complex 01/14/2016 Patient Education: Patient Medication Summary Completed 01/14/2016 Patient Education: Obesity Completed 01/14/2016 Care Plan: BMI Above normal followup DAVID F-MGMT EDUC & TRAIN 1 PT Pending 10/24/2015 Care Plan: X-RAY EXAM OF SHOULDER LOINC : 93618-6 Pending 10/24/2015 Visit Plan: Left shoulder pain [...] weight check. 10/02/2015 Appointment: Edna Douglas WPtel[phone] (15 min) Moderate 10/02/2015 Patient Education: [...] Completed 06/10/2015 Appointment: Sarai Almanza WPtel: [facility] (15 min) Moderate 04/22/2015 [...] have surgical fixation - planning occurring at [facility]. Snoring - Sleep apnea symptoms with [...] to medications. 01/22/2015 Appointment: Sarai Almanza WPtel: [facility] [place] (S) New Patient 01/22/2015 Patient Education: Patient Medication Summary Completed 01/22/2015 Patient Education: Hypertension Completed 01/22/2015 [facility] [place] Referral Initiated Instructions Comment . Joint complaints, fatigue - will check [...] to further attempt to reduce peripheral edema. FBMG-znchdrmd-lxvngpzh prilosec BID and carafate QID -discussed low spice, low acidic diet . Chronic Anticoagul ant use - Pt [...] have surgical fixation - planning occurring at [facility]. Snoring - Sleep apnea symptoms with [...] they worsen, or with other concerns. . Edema - pt has bee n [...] and pt has been seen at [facility] and that surgeon felt like [...]
--- OUTSIDE RECORDS SUMMARY | 2020-01-16 23:48 | XMS REPORT | CCD ---
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 Name Role Phone PP Unavailable CCM Unavailable Summary Purpose Interface Exchange Insurance Providers Payer name Policy type / Coverage type Covered republican ID Effective Begin Date Effective End Date WPS Medicare Part B Medicare Part B [id number] 2017 Unknown [employer] [place] Medicare Part B [id number] 2017 Unknown Family history Father Diagnosis Age At Onset Hyperlipidemia Unknown Heart Attack Unknown Mother Diagnosis Age At Onset Arthritis Unknown Social History Social History Element Codes Description Effective Dates Marital status Unknown M arried Nathan 09/30/2016 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 Number of children Unknown 3 01/22/[address]: 964462037 Never smoker 01/22/[address]: 919508998 Never drinks alcohol 01/22/2015 Allergies, Adverse Reactions, [...] ICD-10: R53.83 Active 08/20/2016 Unknown 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 ICD-9: V58.69 ICD-10: [...] cose ICD-9: 790.21 ICD-10: R73.01 05/27/2017 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) [...] 780.79 ICD-10: R53.83 08/20/2016 Active 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 ICD-9: 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 ICD-10: [...] Instructions clonazepam 0.5 mg ta blet RxNorm: 825570 1 Tablet(s) PO BID 06/08/2018 11/04/2018 Active Carafate 1 gram tablet RxNorm: 068915 TAKE ONE TABLET BY MOUTH BEFORE MEALS AN D AT BEDTIME 05/18/2018 07/12/2018 Active Generic For:CARAFATE 1GM 8:38:28 AM Synthroid 137 mcg ta blet RxNorm: 874600 TAKE 1 TABLET BY MOUT H ONCE DAILY 05/18/2018 11/13/2018 Ac tive Generic For:SYNTHROID 137MCG TAB 2017 8:57:54 AM spironolactone 25 mg tablet RxNorm: 925353 TAKE 1 TABLET BY MOUT H EVERY DAY 05/18/2018 05/12/2019 Ac tive Generic For:*ALDACTONE 25MG 05/18/2018 8:57:50 AM allopurinol 300 mg t ablet RxNorm: 936657 TAKE 1 TABLET BY MOUT H ONCE DAILY. 04/18/2018 10/14/2018 Ac tive Generic For:ZYLOPRIM 300 MG TABLET 03/22 9:13:47 AM Lasix 20 mg tablet RxNorm: 470560 TAKE ONE TABLET BY MOUTH DAILY 04/18/2018 08/15/2018 Ac tive Generic For:LASIX 20MG 04/18/2018 9:13: 50 AM Carafate 1 gram tablet RxNorm: 974917 TAKE ONE TABLET BY MOUTH BEFORE MEALS AN D AT BEDTIME 04/18/2018 05/17/2018 Inactive Generic For:CARAFATE 1GM 1 9:32:51 AM Coumadin 5 mg tablet RxNorm: 922795 TAKE 1 TABLET BY MOUTH DIRECTED 03/21/2018 09/16/2018 Ac tive Generic For:COUMADIN 5MG TAB 03/21/2018 9:13:00 AM Carafate 1 gram tablet RxNorm: 801807 TAKE ONE TABLET BY MOUTH BEFORE MEALS AN D AT BEDTIME 03/21/2018 04/17/2018 Inactive Generic For:CARAFATE 1GM 1 9:14:24 AM Carafate 1 gram tablet RxNorm: 002420 1 Tablet(s) PO AC & HS 02/17/2018 03/20/2018 Inactive atenolol 100 mg tablet RxNorm: 522054 1 Tablet(s) PO daily 02/04/2018 09/01/2018 Active atenolol 50 mg tablet RxNorm: 774755 1 Tablet(s) PO daily 02/03/2018 02/03/2018 Inactive omeprazole 20 mg cap sean,delayed release RxNorm: 476339 1 Capsule(s) BID 01/21/2018 01/15/2019 Ac tive Generic For:PRILOSEC 20MG 07/22/2017 8:5 8:20 AM Carafate 1 gram tablet RxNorm: 500002 1 Tablet(s) PO AC & HS 01/21/2018 02/16/2018 Inactive Carafate 1 gram tablet RxNorm: 108391 1 Tablet(s) PO AC & HS 01/18/2018 01/20/2018 Inactive Carafate 1 gram tablet RxNorm: 786716 1 Tablet(s) PO AC & HS 01/18/2018 02/27/2018 Inactive Carafate 1 gram tablet RxNorm: 610671 1 Tablet(s) PO AC & HS TAKE ONE TABLET B Y MOUTH TWICE DAILY 01/18/2018 05/17/2018 Inactive Generic For:CARAFATE 1GM 0 12/20/2017 9:10:56 AM omeprazole 20 mg cap sean,delayed release RxNorm: 207829 Capsule(s) TAKE 1 CAP SEAN BY MOUTH EVERY DAY 01/17/2018 01/20/2018 Inactive Generic For:PRILOSEC 20MG 0 07/22/2017 8:58:20 AM omeprazole 20 mg cap sean,delayed release RxNorm: 959310 Capsule(s) TAKE 1 CAP SEAN BY MOUTH EVERY DAY 01/14/2018 01/16/2018 Inactive Generic For:PRILOSEC 20MG 07/22/2017 8:58:20 AM Plavix 75 mg tablet RxNorm: 864977 1 Tablet(s) PO daily 01/07/2018 07/05/2018 Active clonazepam 0.5 mg ta blet RxNorm: 055715 1 Tablet(s) PO BID 01/07/2018 06/05/2018 Inactive Carafate 1 gram tablet RxNorm: 900235 1 Tablet(s) PO AC & HS 01/04/2018 01/17/2018 Inactive sodium bicarbonate 6 50 mg tablet RxNorm: 895524 TAKE 2 TABLETS BY JAVON TH TWICE DAILY 12/20/2017 06/17/2018 Ac tive 12/20/2017 9:10:59 AM Lasix 20 mg tablet RxNorm: 021879 TAKE ONE TABLET BY MOUTH DAILY 12/20/2017 04/17/2018 In active Generic For:LASIX 20MG 12/20/2017 9:11: 03 AM Carafate 1 gram tablet RxNorm: 159243 TAKE ONE TABLET BY MOUTH TWICE DAILY 12/20/2017 01/17/2018 In active Generic For:CARAFATE 1GM 12/20/2017 9:1 0:56 AM Synthroid 137 mcg ta blet RxNorm: 007098 TAKE 1 TABLET BY MOUT H ONCE DAILY 11/19/2017 05/17/2018 In active Generic For:SYNTHROID 137MCG TAB 2017 8:58:04 AM Detrol LA 4 mg capsu le,extended release RxNorm: 283378 TAKE 1 CAPSULE BY JAVON TH ONCE DAILY 10/20/2017 04/13/2018 Inactive Generic For:DETROL LA 4MG C AP 10/20/2017 9:01:56 AM allopurinol 300 mg t ablet RxNorm: 173901 TAKE 1 TABLET BY MOUT H ONCE DAILY. 10/20/2017 04/17/2018 In active Generic For:ZYLOPRIM 300 MG TABLET 07/2017 9:01:59 AM Coumadin 5 mg tablet RxNorm: 439098 1 Tablet(s) PO UD 10/01/2017 03/20/2018 Inactive cyclobenzaprine 5 mg tablet RxNorm: 447783 1 Tablet(s) PO TID as needed myscle spasm 09/23/2017 10/12/2017 Inactive Lipitor 40 mg tablet RxNorm: 280244 TAKE 1 TABLET BY MOUTH ONCE DAILY 09/20/2017 09/14/2018 Ac tive Generic For:LIPITOR 40MG 09/20/2017 8:5 6:04 AM atenolol 100 mg tablet RxNorm: 723598 1 Tablet(s) PO daily 08/30/2017 02/03/2018 Inactive atenolol 50 mg tablet RxNorm: 645169 1 Tablet(s) PO daily 08/30/2017 08/30/2017 Inactive Lovenox 30 mg/0.3 mL subcutaneous syringe RxNorm: 510904 0.3 Milliliter(s) SQ Q12H 08/24/2017 09/06/2017 In active Lasix 20 mg tablet RxNorm: 611873 TAKE ONE TABLET BY MOUTH DAILY 08/23/2017 12/19/2017 In active Generic For:LASIX 20MG 08/21/2017 9:04: 27 AM Synthroid 137 mcg ta blet RxNorm: 801985 TAKE 1 TABLET BY MOUT H ONCE DAILY 08/23/2017 11/18/2017 In active Generic For:SYNTHROID 137MCG TAB 2017 9:04:30 AM Lovenox 30 mg/0.3 mL subcutaneous syringe RxNorm: 724669 0.3 Milliliter(s) SQ Q12H 08/10/2017 08/23/2017 In active clonazepam 0.5 mg ta blet RxNorm: 134336 1 Tablet(s) PO BID 08/04/2017 12/30/2017 Inactive Coumadin 4 mg tablet RxNorm: 139719 TAKE 1 TABLET BY MOUTH THREE TIMES PER [place] (WEDNESDAY, WEDNESDAY AND WEDNESDAY) 07/22/2017 02/16/2018 Inactive Generic For:COUMADIN 4MG 07/22/2017 8:58:26 AM Coumadin 4 mg tablet RxNorm: 635434 TAKE 1 TABLET BY MOUTH THREE TIMES PER [place] (WEDNESDAY, WEDNESDAY AND WEDNESDAY) 07/22/2017 02/16/2018 Inactive Generic For:COUMADIN 4MG 07/22/2017 8:58:26 AM omeprazole 20 mg cap sean,delayed release RxNorm: 217002 TAKE 1 CAPSULE BY JAVON TH EVERY DAY 07/22/2017 01/13/2018 Inactive Generic For:PRILOSEC 20MG 07/22/2017 8: 58:20 AM venlafaxine ER 75 mg capsule,extended release 24 hr RxNorm: 984792 TAKE 1 CAPSULE BY MOUTH ONCE DAILY 06/22/2017 06/16/2018 Active Generic For:*EFFEXOR XR 75MG 06/19/2017 12:23:45 PM sodium bicarbonate 6 50 mg tablet RxNorm: 528530 TAKE 2 TABLETS BY JAVON TH TWICE DAILY 06/22/2017 12/18/2017 In active 06/19/2017 12:23:30 PM Coumadin 5 mg tablet RxNorm: 854220 1 Tablet(s) PO UD 06/01/2017 09/30/2017 Inactive Keflex 500 mg capsule RxNorm: 650642 1 Capsule(s) PO TID 05/27/2017 06/02/2017 Inactive Synthroid 137 mcg ta blet RxNorm: 462933 TAKE 1 TABLET BY MOUT H ONCE DAILY 05/24/2017 08/21/2017 In active Generic For:SYNTHROID 137MCG TAB 2016 8:55:59 AM Carafate 1 gram tablet RxNorm: 088426 TAKE ONE TABLET BY MOUTH TWICE DAILY 05/24/2017 12/19/2017 In active Generic For:CARAFATE 1GM 05/24/2017 8:5 5:54 AM spironolactone 25 mg tablet RxNorm: 857936 1 Tablet(s) PO daily 05/24/2017 05/17/2018 Inactive Detrol LA 4 mg capsu le,extended release RxNorm: 232308 1 Capsule(s) PO daily TAKE 1 CAPSULE BY MOUTH ONCE DAILY 05/10/2017 10/19/2017 Inactive Generic For:DETROL LA 4MG CAP 02/19/2017 2:36:00 PM Lasix 20 mg tablet RxNorm: 047081 TAKE ONE TABLET BY MOUTH DAILY 04/23/2017 08/20/2017 In active Generic For:LASIX 20MG 04/23/2017 9:04: 01 AM Coumadin 4 mg tablet RxNorm: 950117 TAKE 1 TABLET BY MOUTH THREE TIMES PER [place] (WEDNESDAY, WEDNESDAY AND WEDNESDAY) 04/23/2017 07/21/2017 Inactive Generic For:COUMADIN 4MG 04/23/2017 9:04:05 AM allopurinol 300 mg t ablet RxNorm: 985048 TAKE 1 TABLET BY MOUT H ONCE DAILY. 04/23/2017 10/19/2017 In active Generic For:ZYLOPRIM 300 MG TABLET 08/2016 9:03:57 AM potassium chloride 2 0 mEq/15 mL oral liquid RxNorm: 462720 Milliliter(s) 30 Milliliter(s) (40mEq) PO daily 03/24/2017 07/21/2017 Inactive Lovenox 30 mg/0.3 mL subcutaneous syringe RxNorm: 918975 0.3 Milliliter(s) SQ Q12H 03/22/2017 03/26/2017 In active Lovenox 30 mg/0.3 mL subcutaneous syringe RxNorm: 825349 0.3 Milliliter(s) SQ Q12H 03/19/2017 03/20/2017 In active Lovenox 30 mg/0.3 mL subcutaneous syringe RxNorm: 238654 0.3 Milliliter(s) SQ Q12H 03/16/2017 03/18/2017 In active clonazepam 0.5 mg ta blet RxNorm: 452695 1 Tablet(s) PO BID 03/02/2017 07/28/2017 Inactive Lovenox 30 mg/0.3 mL subcutaneous syringe RxNorm: 147130 1 injection SQ BID do NOT take the night time dose the day before surgery, or the morning dose the day of surgery 03/01/2017 03/07/2017 Inactive Lovenox 30 mg/0.3 mL subcutaneous syringe RxNorm: 070072 1 injection SQ BID 03/01/2017 02/28/2017 In active Detrol LA 4 mg capsu le,extended release RxNorm: 717191 TAKE 1 CAPSULE BY JAVON TH ONCE DAILY 02/19/2017 05/09/2017 Inactive Generic For:DETROL LA 4MG C AP 02/19/2017 2:36:00 PM hydrocodone 5 mg-humberto taminophen 325 mg tablet RxNorm: 592185 1-2 Tablet(s) PO Q6 P RN 02/04/2017 No Stop Date Active Zetia 10 mg tablet RxNorm: 182627 TAKE 1 TABLET BY MOUTH DAILY 01/25/2017 04/13/2018 Inactive 01/23/2017 9:03:48 AM omeprazole 20 mg cap sean,delayed release RxNorm: 328034 TAKE 1 CAPSULE BY JAVON TH EVERY DAY 01/25/2017 07/21/2017 Inactive Generic For:PRILOSEC 20MG 01/23/2017 9: 03:45 AM Coumadin 4 mg tablet RxNorm: 424619 TAKE 1 TABLET BY MOUTH THREE TIMES PER [place] (WEDNESDAY, WEDNESDAY AND WEDNESDAY) 01/25/2017 04/22/2017 Inactive Generic For:COUMADIN 4MG 01/23/2017 9:03:51 AM sodium bicarbonate 6 50 mg tablet RxNorm: 202532 TAKE 2 TABLETS BY JAVON TH TWICE DAILY 12/24/2016 06/21/2017 In active 12/24/2016 9:09:27 AM Lasix 20 mg tablet RxNorm: 239703 1 Tablet(s) PO daily 12/24/2016 04/22/2017 Inactive Synthroid 137 mcg ta blet RxNorm: 935265 TAKE 1 TABLET BY MOUT H ONCE DAILY 11/24/2016 05/22/2017 In active Generic For:SYNTHROID 137MCG TAB 2016 9:04:37 AM Coumadin 4 mg tablet RxNorm: 526536 TAKE 1 TABLET BY MOUTH THREE TIMES PER [place] (WEDNESDAY, WEDNESDAY AND WEDNESDAY) 11/24/2016 01/22/2017 Inactive Generic For:COUMADIN 4MG 11/24/2016 9:04:41 AM hydrocodone 5 mg-humberto taminophen 325 mg tablet RxNorm: 327288 1-2 Tablet(s) PO Q6 P RN 11/17/2016 02/03/2017 In active Carafate 1 gram tablet RxNorm: 154041 TAKE ONE TABLET BY MOUTH TWICE DAILY 10/27/2016 05/23/2017 In active Generic For:CARAFATE 1GM 10/26/2016 8:3 9:42 AM allopurinol 300 mg t ablet RxNorm: 383029 Tablet(s) TAKE 1 TABL ET BY MOUTH ONCE DAILY. 10/26/2016 04/22/2017 Inactive Lipitor 40 mg tablet RxNorm: 559919 1 Tablet(s) PO daily 09/25/2016 09/19/2017 Inactive Coumadin 4 mg tablet RxNorm: 062394 TAKE 1 TABLET BY MOUTH THREE TIMES PER [place] (WEDNESDAY, WEDNESDAY AND WEDNESDAY) 09/25/2016 11/23/2016 Inactive Generic For:COUMADIN 4MG 09/25/2016 8:55:58 AM Zetia 10 mg tablet RxNorm: 335370 1 Tablet(s) PO daily 09/25/2016 01/22/2017 Inactive gave 1 month of samples clonazepam 0.5 mg ta blet RxNorm: 571278 1 Tablet(s) PO BID 09/21/2016 02/16/2017 Inactive Lasix 20 mg tablet RxNorm: 324656 1 Tablet(s) PO daily 09/15/2016 12/23/2016 Inactive potassium chloride 2 0 mEq/15 mL oral liquid RxNorm: 273734 Milliliter(s) 30 Milliliter(s) (40mEq) PO daily 09/15/2016 01/12/2017 Inactive Lasix 20 mg tablet RxNorm: 2 Tablet(s) PO daily 09/10/2016 09/12/2016 Inactive Lasix 20 mg tablet RxNorm: 336129 1 Tablet(s) PO daily 08/28/2016 08/30/2016 Inactive Lasix 20 mg tablet RxNorm: 1 Tablet(s) PO daily 08/20/2016 08/22/2016 Inactive Detrol LA 4 mg capsu le,extended release RxNorm: 741005 TAKE 1 CAPSULE BY JAVON TH ONCE DAILY 07/27/2016 02/18/2017 Inactive Generic For:DETROL LA 4MG C AP 07/27/2016 9:08:27 AM Coumadin 4 mg tablet RxNorm: 767174 1 Tablet(s) PO 3 x week wed and sun 07/27/2016 09/24/2016 In active omeprazole 20 mg cap sean,delayed release RxNorm: 938452 Capsule(s) PO TAKE 1 CAPSULE BY MOUTH ONCE DAILY 07/27/2016 01/22/2017 Inactive venlafaxine ER 75 mg capsule,extended release 24 hr RxNorm: 954521 1 Capsule(s) PO daily 06/29/2016 06/21/2017 Inactive sodium bicarbonate 6 50 mg tablet RxNorm: 364337 TAKE 2 TABLETS BY JAVON TH TWICE DAILY 06/29/2016 12/23/2016 In active 06/27/2016 9:05:39 AM Coumadin 4 mg tablet RxNorm: 934366 1 Tablet(s) PO 3 x week wed and sun 06/09/2016 06/08/2016 In active Coumadin 4 mg tablet RxNorm: 865669 1 Tablet(s) PO 3 x week wed and sun 06/09/2016 07/26/2016 In active Zetia 10 mg tablet RxNorm: 919890 1 Tablet(s) PO daily 06/09/2016 06/08/2016 Inactive gave 1 month of samples Zetia 10 mg tablet RxNorm: 037796 1 Tablet(s) PO daily 06/09/2016 09/24/2016 Inactive gave 1 month of samples Effexor 75 mg tablet RxNorm: 668351 1 Tablet(s) PO daily 06/08/2016 06/28/2016 Inactive spironolactone 25 mg tablet RxNorm: 963663 1 Tablet(s) PO daily 06/08/2016 05/23/2017 Inactive Synthroid 137 mcg ta blet RxNorm: 066001 1 Tablet(s) PO daily 05/07/2016 11/02/2016 Inactive allopurinol 300 mg t ablet RxNorm: 676820 Tablet(s) TAKE 1 TABL ET BY MOUTH ONCE DAILY. 04/28/2016 10/24/2016 Inactive clonazepam 0.5 mg ta blet RxNorm: 396991 1 Tablet(s) PO BID 04/20/2016 09/15/2016 Inactive Flonase Allergy Reli ef 50 mcg/actuation nasal spray,suspension RxNorm: 5313639 1 [place] NASAL BID 04/02/2016 No Stop Date Active Zithromax Z-Thomas 250 mg tablet RxNorm: 782160 Tablet(s) PO 04/02/2016 08/27/2016 Inactive cetirizine 10 mg tablet RxNorm: 6203610 1 Tablet(s) PO daily 04/02/2016 05/01/2016 Inactive Carafate 1 gram tablet RxNorm: 657390 Tablet(s) TAKE 1 TABLET TWICE A DAY FOR 30 DAYS 03/30/2016 10/25/2016 Inactive Generic For:CARAFATE 1GM 02/08/2015 12:3 6:39 PM Plavix 75 mg tablet RxNorm: 169527 1 Tablet(s) PO daily 03/11/2016 09/06/2016 Inactive sodium bicarbonate 6 50 mg tablet RxNorm: 808850 Tablet(s) 2 Tablet(s) PO BID 02/28/2016 06/26/2016 In active omeprazole 20 mg cap sean,delayed release RxNorm: 768261 Capsule(s) PO TAKE 1 CAPSULE BY MOUTH ONCE DAILY 01/31/2016 07/26/2016 Inactive Fish Oil 1,000 mg ca psule RxNorm: 1 Capsule(s) PO BID 01/14/2016 No Stop Date Active Synthroid 137 mcg ta blet RxNorm: 216655 1 Tablet(s) PO daily 01/14/2016 05/06/2016 Inactive Detrol LA 4 mg capsu le,extended release RxNorm: 710946 TAKE 1 CAPSULE BY JAVON TH ONCE DAILY 12/30/2015 07/26/2016 Inactive Generic For:DETROL LA 4MG C AP 12/30/2015 9:11:01 AM potassium chloride 2 0 mEq/15 mL oral liquid RxNorm: 870621 Milliliter(s) 30 Milliliter(s) (40mEq) PO daily 12/02/2015 03/30/2016 Inactive sodium bicarbonate 6 50 mg tablet RxNorm: 211182 Tablet(s) 2 Tablet(s) PO BID 10/31/2015 02/27/2016 In active Lipitor 40 mg tablet RxNorm: 191737 1 Tablet(s) PO daily 10/09/2015 09/24/2016 Inactive sodium bicarbonate 6 50 mg tablet RxNorm: 300868 2 Tablet(s) PO BID 10/01/2015 10/30/2015 Inactive allopurinol 300 mg t ablet RxNorm: 409902 TAKE 1 TABLET BY MOUT H ONCE DAILY. 10/01/2015 04/27/2016 In active Generic For:ZYLOPRIM 300 MG TABLET 09/19 9:21:15 AM clonazepam 0.5 mg ta blet RxNorm: 373647 1 Tablet(s) PO BID 09/30/2015 04/19/2016 Inactive Coumadin 5 mg tablet RxNorm: 986273 1 Tablet(s) PO daily 09/27/2015 05/31/2017 Inactive Generic For:COUMADIN 5MG TAB N O T I C E PRESCRIPTION PREVIOUSLY AUTHORIZED BY DOCTOR:BOBBY ZULETA Synthroid 125 mcg ta blet RxNorm: 260480 1 Tablet(s) PO daily 09/27/2015 09/26/2015 Inactive Synthroid 125 mcg ta blet RxNorm: 510697 1 Tablet(s) PO daily 09/27/2015 01/13/2016 Inactive Carafate 1 gram tablet RxNorm: 043170 Tablet(s) TAKE 1 TABLET TWICE A DAY FOR 30 DAYS 09/02/2015 03/29/2016 Inactive Generic For:CARAFATE 1GM 02/08/2015 12:3 6:39 PM sodium bicarbonate 6 50 mg tablet RxNorm: 374564 2 Tablet(s) PO BID 09/02/2015 09/30/2015 Inactive Prilosec 20 mg capsu le,delayed release RxNorm: 052131 TAKE 1 CAPSULE BY JAVON TH ONCE DAILY 08/02/2015 01/28/2016 Inactive Generic For:PRILOSEC 20MG 08/02/2015 10:03:09 AM N O T I C E PRESCRIPTION PREVIOUSLY AUTHORIZED BY DOCTOR:BOBBY ZULETA Zyrtec 10 mg capsule RxNorm: 7513735 1 Capsule(s) PO daily 07/15/2015 08/13/2015 Inactive Keflex 500 mg capsule RxNorm: 076650 1 Capsule(s) PO TID 07/15/2015 07/21/2015 Inactive cetirizine 10 mg cap sean RxNorm: 5549424 1 Capsule(s) PO daily 07/15/2015 08/13/2015 Inactive hydrocodone 5 mg-humberto taminophen 325 mg tablet RxNorm: 761855 1-2 Tablet(s) PO Q6 P RN 06/10/2015 11/16/2016 In active sodium bicarbonate 6 50 mg tablet RxNorm: 959766 2 Tablet(s) PO BID 06/03/2015 08/31/2015 Inactive Detrol LA 4 mg capsu le,extended release RxNorm: 510233 TAKE 1 CAPSULE BY JAVON TH ONCE DAILY 06/03/2015 12/29/2015 Inactive Generic For:DETROL LA 4MG C AP N O T I C E PRESCRIPTION PREVIOUSLY AUTHORIZED BY DOCTOR:BOBBY ZULETA atenolol 50 mg tablet RxNorm: 063055 1 Tablet(s) PO daily TAKE 1 TABLET BY MO UTH DAILY 05/07/2015 08/23/2017 Inactive Generic For:TENORMIN 50MG 05/04/2015 9:07:22 AM spironolactone 25 mg tablet RxNorm: 581108 1 Tablet(s) PO daily 05/06/2015 06/07/2016 Inactive venlafaxine ER 75 mg capsule,extended release 24 hr RxNorm: 149297 1 Capsule(s) PO daily 05/04/2015 06/28/2016 Inactive atenolol 50 mg tablet RxNorm: 047139 TAKE 1 TABLET BY MOUTH DAILY 05/04/2015 05/06/2015 Inactive Generic For:TENORMIN 50MG 05/04/2015 9: 07:22 AM Synthroid 150 mcg ta blet RxNorm: 176731 TAKE 1 TABLET BY MOUT H ONCE DAILY. 04/05/2015 09/26/2015 In active Generic For:SYNTHROID 150MCG TAB 2014 4:45:40 PM N O T I C E PRESCRIPTION PREVIOUSLY AUTHORIZED BY DOCTOR:BOBBY ZULETA Effexor 75 mg tablet RxNorm: 275294 1 Tablet(s) PO daily 04/05/2015 07/03/2015 Inactive Coumadin 5 mg tablet RxNorm: 528783 TAKE 1 AND 1/2 TABLETS BY MOUTH ONCE MYRANDA LY 04/04/2015 09/26/2015 In active Generic For:COUMADIN 5MG TAB N O T I C E PRESCRIPTION PREVIOUSLY AUTHORIZED BY DOCTOR:BOBBY ZULETA clonazepam 0.5 mg ta blet RxNorm: 734610 1 Tablet(s) PO BID 03/13/2015 11/05/2015 Inactive sodium bicarbonate 6 50 mg tablet RxNorm: 847323 2 Tablet(s) PO BID 03/08/2015 06/02/2015 Inactive allopurinol 300 mg t ablet RxNorm: 689412 TAKE 1 TABLET BY MOUT H ONCE DAILY. 03/05/2015 09/30/2015 In active N O T I C E PRESCRIPTION PREVIOUSLY A UTHORIZED BY DOCTOR:BOBBY ZULETA Plavix 75 mg tablet RxNorm: 127642 1 Tablet(s) PO daily 02/12/2015 09/09/2015 Inactive clonazepam 0.5 mg ta blet RxNorm: 005580 1 Tablet(s) PO BID 02/11/2015 03/11/2015 Inactive Carafate 1 gram tablet RxNorm: 061193 TAKE 1 TABLET TWICE A DAY FOR 30 DAYS 02/08/2015 02/07/2015 In active Generic For:CARAFATE 1GM 02/08/2015 12:3 6:39 PM Carafate 1 gram tablet RxNorm: 524800 Tablet(s) TAKE 1 TABLET TWICE A DAY FOR 30 DAYS 02/08/2015 09/01/2015 Inactive Generic For:CARAFATE 1GM 02/08/2015 12:3 6:39 PM potassium chloride 2 0 mEq/15 mL oral liquid RxNorm: 058687 30 Milliliter(s) (40m Eq) PO daily 02/05/2015 12/01/2015 Inactive atenolol 50 mg tablet RxNorm: 852987 1 Tablet(s) PO daily 02/04/2015 05/03/2015 Inactive [SAVINGS FOR NON-COVERED DRUGS -- BIN:00 3585, PCN: ASPROD1, Group: XXXXX, ID# XXXXXXX, Questions: . THIS IS NOT INSURANCE.] potassium chloride 2 0 mEq/15 mL oral liquid RxNorm: 391053 30 Milliliter(s) (40m Eq) PO daily 01/08/2015 02/04/2015 Inactive potassium chloride 2 0 mEq/15 mL oral liquid RxNorm: 542984 30 Milliliter(s) (40m Eq) PO daily 12/07/2014 01/07/2015 Inactive atenolol 50 mg tablet RxNorm: 215082 1 Tablet(s) PO daily 11/09/2014 11/08/2014 Inactive atenolol 50 mg tablet RxNorm: 101959 1 Tablet(s) PO daily 11/09/2014 02/03/2015 Inactive [SAVINGS FOR NON-COVERED DRUGS -- BIN:5, PCN: ASPROD1, Group: XXXXX, ID# [id number], Questions: . THIS IS NOT INSURANCE.] Voltaren 1 % topical gel RxNorm: 324247 TOP No St art Date Active verapamil ER (HS) 24 0 mg tablet,extended release 24 hr RxNorm: 990407 1 Tablet(s) PO daily No Start Date Active aspirin 81 mg tablet RxNorm: 722411 1 Tablet(s) PO daily No Start Date Active Zofran 4 mg tablet RxNorm: 956421 1 Tablet(s) PO PRN No Start Date Active B12 1000 mcg RxNorm: 1 Tablet(s) PO daily No Start Date Active magnesium oxide 400 mg capsule RxNorm: 647825 2 Capsule(s) PO BID No Start Date Active Synthroid 150 mcg ta blet RxNorm: 324734 1 Tablet(s) PO daily No Start Date 04/04/2015 Inactive Coumadin 5 mg tablet RxNorm: 862383 1 Tablet(s) PO daily No Start Date 04/03/2015 Inactive cranberry 1,000 mg c apsule RxNorm: 250795 1 Capsule(s) PO daily No Start Date 04/13/2018 Inactive allopurinol 300 mg t ablet RxNorm: 848814 1 Tablet(s) PO daily No Start Date 03/04/2015 Inactive Prilosec 20 mg capsu le,delayed release RxNorm: 064830 1 Capsule(s) PO PRN No Start Date 08/01/2015 Inactive potassium chloride 2 0 mEq/15 mL oral liquid RxNorm: 687701 30 Milliliter(s) (40m Eq) PO daily No Start Date 12/06/2014 Inactive atenolol 50 mg tablet RxNorm: 825259 1 Tablet(s) PO daily No Start Date 08/29/2017 Inactive Lipitor 40 mg tablet RxNorm: 127816 1 Tablet(s) PO daily No Start Date 09/19/2017 Inactive Effexor 75 mg tablet RxNorm: 051329 1 Tablet(s) PO daily No Start Date 04/04/2015 Inactive Carafate 1 gram tablet RxNorm: 115005 1 Tablet(s) PO BID No Start Date 02/07/2015 Inactive clonazepam 0.5 mg ta blet RxNorm: 320957 1 Tablet(s) PO BID No Start Date 02/10/2015 Inactive Plavix 75 mg tablet RxNorm: 407281 1 Tablet(s) PO daily No Start Date 02/11/2015 Inactive sodium bicarbonate 6 50 mg tablet RxNorm: 414714 2 Tablet(s) PO BID No Start Date 09/01/2015 Inactive Lovenox 30 mg/0.3 mL subcutaneous syringe RxNorm: 668032 0.3 Milliliter(s) SQ Q12H No Start Date 03/15/2017 Inactive Fish Oil 1,000 mg ca psule RxNorm: 1 Capsule(s) PO daily No Start Date 01/13/2016 Inactive Detrol LA 4 mg capsu le,extended release RxNorm: 585514 1 Capsule(s) PO daily No Start Date 06/02/2015 Inactive Medication Administered No Medication Administered data Immunizations Vaccine Codes Date Status SHINGARIX CVX: 121 03/23 completed Assessments Condition Codes Effectiv e Dates Hypothyroidism, unspecified ICD-10: E03.9 ICD-9: 244.9 04/14/2018 Essential (primary) hypertension ICD -10: I10 ICD-9: 401.9 04/14/2018 [facility] (current) use of anticoagulants ICD-10: Z79.01 ICD-9: [...] fatigue ICD-10: R53.83 ICD-9: 780.79 08/20/2016 [facility] (current[facility] drug therapy ICD-10: Z79.899 ICD-9: V58.69 [...] Observation Code Item Item Code Result Date Cbc With Differential Ord2 WBC 5.45 K/ul [...] 30.4 pg 06/08/2018 Cbc With Differential Ord2 [place]% 9.4 % 06/08/2018 Cbc With Differential Ord2 [...] 1.20 K/ul 06/08/2018 Cbc With Differential Ord2 [place] ABS# 0.5 K/ul 06/08/2018 Cbc With Differential Ord2 Eos ABS# 0.1 K/ul 06/08/2018 Cbc With Differential Ord2 Baso ABS# 0.1 K/ul 06/08/2018 C-Reactive Protein Qnt Crqnt CRP 0.1 mg/dl 06/08/2018 Pt [id number] PT 17.6 seconds 06/08/2018 Pt [id number] INR 1.5 06/08/2018 Pt Oxq1820 Low Intensity - 1.5-2.0 06/08/2018 Pt Qfj0941 Mod intensity - 2.0-3.0 06/08/2018 Pt Dli1998 Hi intensity - 3.0-4.0 06/08/2018 Pt Nbp5601 PT 16.8 seconds 05/10/2018 Pt Qfw7365 INR 1.4 05/10/2018 Pt Zxj4957 Low Intensity - 1.5-2.0 05/10/2018 Pt Jck4546 Mod intensity - 2.0-3.0 05/10/2018 Pt Rvw0866 Hi intensity - 3.0-4.0 05/10/2018 Pt Fnd3409 PT 16.7 seconds 05/04/2018 Pt Nkg9711 INR 1.4 05/04/2018 Pt Vkt4053 Low Intensity - 1.5-2.0 05/04/2018 Pt Aki5796 Mod intensity - 2.0-3.0 05/04/2018 Pt Nfd1778 Hi intensity - 3.0-4.0 05/04/2018 Free T4 Gzu629 FREE T4 1.09 ng/dL 04/14/2018 Tsh Ord6 TSH (3rd IS) 2.36 uIU/mL 04/14/2018 Pt Hti8390 PT 20.3 seconds 04/14/2018 Pt Vzu4222 INR 1.8 04/14/2018 Pt Xfk0265 Low Intensity - 1.5-2.0 04/14/2018 Pt Wru6012 Mod intensity - 2.0-3.0 04/14/2018 Pt Abw1999 Hi intensity - 3.0-4.0 04/14/2018 Lipid Ord30 CHOL 149 mg/dL 04/14/2018 Lipid Ord30 HDL 49.0 mg/dl 04/14/2018 Lipid Ord30 TRIG 161 mg/dL 04/14/2018 Lipid Ord30 LDL 68 mg/dL 04/14/2018 Lipid Ord30 C/HDL 3.0 Ratio 04/14/2018 %Hba1C Yyv662 % HbA1c 04248-6 5.9 % 04/14/2018 %Hba1C Rza121 Gluc Ave 123 mg/dL 04/14/2018 Comp Metabolic Qqd276 NA 140 mEq/L 04/14/2018 Comp Metabolic Mcf604 K 4.1 mEq/L 04/14/2018 Comp Metabolic Ngg704 CL 105 mEq/L 04/14/2018 Comp Metabolic Rjs778 CO2 28.0 mEq/L 04/14/2018 Comp Metabolic Erd879 AN ION GAP 11 04/14/2018 Comp Metabolic Htg787 GL UCOSE 112 mg/dL 04/14/2018 Comp Metabolic Jgl918 Cr eat 1.0 mg/dL 04/14/2018 Comp Metabolic Ajz980 eG FR 58 ml/min/1.73m2 04/14 Comp Metabolic Sdz541 BUN 20 mg/dL 04/14/2018 Comp Metabolic Lsy096 B/ C Ratio 20.2 Ratio 04/14/2018 Comp Metabolic Mjy580 CA LCIUM 10.0 mg/dL 04/14/2018 Comp Metabolic Xwc629 AL K PHOS 51 U/L 04/14/2018 Comp Metabolic Ihx209 T(SGOT) 24 U/L 04/14/2018 Comp Metabolic Khu945 AL T(SGPT) 21 U/L 04/14/2018 Comp Metabolic Uek803 BI LI T 0.8 mg/dL 04/14/2018 Comp Metabolic Vdf951 AL BUMIN 4.2 g/dL 04/14/2018 Comp Metabolic Zuy268 TP RO 7.1 g/dL 04/14/2018 Comp Metabolic Tzg259 GL OB 2.9 g/dL 04/14/2018 Comp Metabolic Opp802 A/ G Ratio 1.5 Ratio 04/14/2018 Comp Metabolic Ezr527 Os mo 283 mOsmo 04/14/2018 Cbc With [...] 30.7 pg 04/14/2018 Cbc With Differential Ord2 [place]% 10.6 % 04/14/2018 Cbc With Differential Ord2 [...] 1.18 K/ul 04/14/2018 Cbc With Differential Ord2 [place] ABS# 0.5 K/ul 04/14/2018 Cbc With Differential Ord2 Eos ABS# 0.2 K/ul 04/14/2018 Cbc With Differential Ord2 Baso ABS# 0.1 K/ul 04/14/2018 Pt Mfw1225 PT 29.3 seconds 02/11/2018 Pt Kug6235 INR 2.8 02/11/2018 Pt Jzu9283 Low Intensity - 1.5-2.0 02/11/2018 Pt Nye1220 Mod intensity - 2.0-3.0 02/11/2018 Pt Ssh1960 Hi intensity - 3.0-4.0 02/11/2018 Comp Metabolic Yxv111 NA 141 mEq/L 01/05/2018 Comp Metabolic Lmp200 K 3.7 mEq/L 01/05/2018 Comp Metabolic Qjh424 CL 102 mEq/L 01/05/2018 Comp Metabolic Trr268 CO2 29.0 mEq/L 01/05/2018 Comp Metabolic Vpf393 AN ION GAP 14 01/05/2018 Comp Metabolic Vtt144 GL UCOSE 136 mg/dL 01/05/2018 Comp Metabolic Jkq216 Cr eat 1.0 mg/dL 01/05/2018 Comp Metabolic Iee308 eG FR 61 ml/min/1.73m2 01/05 Comp Metabolic Rke511 BUN 22 mg/dL 01/05/2018 Comp Metabolic Rmb933 B/ C Ratio 22.9 Ratio 01/05/2018 Comp Metabolic Zen523 CA LCIUM 9.7 mg/dL 01/05/2018 Comp Metabolic Acv751 AL K PHOS 57 U/L 01/05/2018 Comp Metabolic Msx657 T(SGOT) 21 U/L 01/05/2018 Comp Metabolic Flt303 AL T(SGPT) 19 U/L 01/05/2018 Comp Metabolic Azi677 BI LI T 0.9 mg/dL 01/05/2018 Comp Metabolic Iqb711 AL BUMIN 4.1 g/dL 01/05/2018 Comp Metabolic Tjx117 TP RO 7.1 g/dL 01/05/2018 Comp Metabolic Bxy516 GL OB 3.0 g/dL 01/05/2018 Comp Metabolic Yih471 A/ G Ratio 1.4 Ratio 01/05/2018 Comp Metabolic Pnj761 Os mo 287 mOsmo 01/05/2018 Free T4 Coc410 FREE T4 1.05 ng/dL 01/05/2018 %Hba1C Ssa628 % HbA1c 76625-2 6.0 % 01/05/2018 %Hba1C Rlh086 Gluc Ave 126 mg/dL 01/05/2018 Cbc With [...] 27.3 % 01/05/2018 Cbc With Differential Ord2 [place]% 10.5 % 01/05/2018 Cbc With Differential Ord2 [...] 1.27 K/ul 01/05/2018 Cbc With Differential Ord2 [place] ABS# 0.5 K/ul 01/05/2018 Cbc With Differential Ord2 Eos ABS# 0.2 K/ul 01/05/2018 Cbc With Differential Ord2 Baso ABS# 0.1 K/ul 01/05/2018 Pt Niw9055 PT 20.7 seconds 01/05/2018 Pt Uul9279 INR 1.8 01/05/2018 Pt Hlu9935 Low Intensity - 1.5-2.0 01/05/2018 Pt Nrs9176 Mod intensity - 2.0-3.0 01/05/2018 Pt Dkf9772 Hi intensity - 3.0-4.0 01/05/2018 Tsh Ord6 TSH (3rd IS) 2.34 uIU/mL 01/05/2018 Lipid Ord30 CHOL 156 mg/dL 01/05/2018 Lipid Ord30 HDL 48.0 mg/dl 01/05/2018 Lipid Ord30 TRIG 207 mg/dL 01/05/2018 Lipid Ord30 LDL 67 mg/dL 01/05/2018 Lipid Ord30 C/HDL 3.3 Ratio 01/05/2018 Pt Knr3887 PT 28.3 seconds 11/26/2017 Pt Uto4105 INR 2.6 11/26/2017 Pt Xew8349 Low Intensity - 1.5-2.0 11/26/2017 Pt Igv0845 Mod intensity - 2.0-3.0 11/26/2017 Pt Qha9396 Hi intensity - 3.0-4.0 11/26/2017 Pt Vew5202 PT 36.5 seconds 11/19/2017 Pt Ccn9025 INR 3.6 11/19/2017 Pt Trq4179 Low Intensity - 1.5-2.0 11/19/2017 Pt Zyd6558 Mod intensity - 2.0-3.0 11/19/2017 Pt Xlu6920 Hi intensity - 3.0-4.0 11/19/2017 Pt Mhk7702 PT 22.9 seconds 10/15/2017 Pt Jut7796 INR 2.0 10/15/2017 Pt Uzu3630 Low Intensity - 1.5-2.0 10/15/2017 Pt Kla0267 Mod intensity - 2.0-3.0 10/15/2017 Pt Phk1385 Hi intensity - 3.0-4.0 10/15/2017 Pt Fmd6496 PT 25.9 seconds 10/01/2017 Pt Ywl5474 INR 2.4 10/01/2017 Pt Eab5226 Low Intensity - 1.5-2.0 10/01/2017 Pt Iee0320 Mod intensity - 2.0-3.0 10/01/2017 Pt Hss9452 Hi intensity - 3.0-4.0 10/01/2017 Pt Zyv3838 PT 20.6 seconds 09/24/2017 Pt Qyu1267 INR 1.8 09/24/2017 Pt Nfm1630 Low Intensity - 1.5-2.0 09/24/2017 Pt Nyo9284 Mod intensity - 2.0-3.0 09/24/2017 Pt Vfv2126 Hi intensity - 3.0-4.0 09/24/2017 Pt Iet4751 PT 21.0 seconds 09/15/2017 Pt Kdf9533 INR 1.8 09/15/2017 Pt Oyt3082 Low Intensity - 1.5-2.0 09/15/2017 Pt Rco9918 Mod intensity - 2.0-3.0 09/15/2017 Pt Tsi8621 Hi intensity - 3.0-4.0 09/15/2017 Pt Hln7173 PT 19.0 seconds 09/03/2017 Pt Ceq4584 INR 1.6 09/03/2017 Pt Eps8916 Low Intensity - 1.5-2.0 09/03/2017 Pt Qbg9105 Mod intensity - 2.0-3.0 09/03/2017 Pt Oyk9804 Hi intensity - 3.0-4.0 09/03/2017 Pt Ght0249 PT 17.6 seconds 08/23/2017 Pt Zxd3781 INR 1.5 08/23/2017 Pt Dwp5928 Low Intensity - 1.5-2.0 08/23/2017 Pt Npv3443 Mod intensity - 2.0-3.0 08/23/2017 Pt Zho1368 Hi intensity - 3.0-4.0 08/23/2017 Pt Qni6181 PT 12.7 seconds 08/20/2017 Pt Ajx6543 INR 1.0 08/20/2017 Pt Oln1675 Low Intensity - 1.5-2.0 08/20/2017 Pt Cvh1688 Mod intensity - 2.0-3.0 08/20/2017 Pt Igy7566 Hi intensity - 3.0-4.0 08/20/2017 Pt Phc2599 PT 12.9 seconds 08/17/2017 Pt Xco7959 INR 1.0 08/17/2017 Pt Mta3676 Low Intensity - 1.5-2.0 08/17/2017 Pt Uht3935 Mod intensity - 2.0-3.0 08/17/2017 Pt Pvo7608 Hi intensity - 3.0-4.0 08/17/2017 Pt Snh9595 PT 18.5 seconds 08/10/2017 Pt Zsr6418 INR 1.6 08/10/2017 Pt Pyw5839 Low Intensity - 1.5-2.0 08/10/2017 Pt Jol1589 Mod intensity - 2.0-3.0 08/10/2017 Pt Dfi9612 Hi intensity - 3.0-4.0 08/10/2017 Tsh Ord6 [...] 14.7 % 05/27/2017 Cbc With Differential Ord2 [place]% 8.1 % 05/27/2017 Cbc With Differential Ord2 [...] 1.11 K/ul 05/27/2017 Cbc With Differential Ord2 [place] ABS# 0.6 K/ul 05/27/2017 Cbc With Differential Ord2 Eos ABS# 0.2 K/ul 05/27/2017 Cbc With Differential Ord2 Baso ABS# 0.1 K/ul 05/27/2017 Pt Fxa6412 PT 28.2 seconds 05/27/2017 Pt Qgl0221 INR 2.6 05/27/2017 Pt Huf3652 Low Intensity - 1.5-2.0 05/27/2017 Pt Hip6470 Mod intensity - 2.0-3.0 05/27/2017 Pt Lie6176 Hi intensity - 3.0-4.0 05/27/2017 Lipid Ord30 CHOL 167 mg/dL 05/27/2017 Lipid Ord30 HDL 49.0 mg/dl 05/27/2017 Lipid Ord30 TRIG 347 mg/dL 05/27/2017 Lipid Ord30 LDL 49 mg/dL 05/27/2017 Lipid Ord30 C/HDL 3.4 Ratio 05/27/2017 Magnesium Ord90 Mag 1.4 mg/dL 05/27/2017 %Hba1C Tnb160 % HbA1c 70498-1 5.9 % 05/27/2017 %Hba1C Lkk340 Gluc Ave 123 mg/dL 05/27/2017 Comp Metabolic Zda261 NA 138 mEq/L 05/27/2017 Comp Metabolic Gvn954 K 4.1 mEq/L 05/27/2017 Comp Metabolic Bde366 CL 101 mEq/L 05/27/2017 Comp Metabolic Yfn284 CO2 31.0 mEq/L 05/27/2017 Comp Metabolic Wvs736 AN ION GAP 10 05/27/2017 Comp Metabolic Hrr651 GL UCOSE 117 mg/dL 05/27/2017 Comp Metabolic Ehi222 Cr eat 0.9 mg/dL 05/27/2017 Comp Metabolic Anr448 eG FR 62 ml/min/1.73m2 05/27 Comp Metabolic Mev973 BUN 25 mg/dL 05/27/2017 Comp Metabolic Myb599 B/ C Ratio 26.6 Ratio 05/27/2017 Comp Metabolic Gqh128 CA LCIUM 9.5 mg/dL 05/27/2017 Comp Metabolic Vgt791 AL K PHOS 73 U/L 05/27/2017 Comp Metabolic Mfq706 T(SGOT) 18 U/L 05/27/2017 Comp Metabolic Zwd500 AL T(SGPT) 12 U/L 05/27/2017 Comp Metabolic Fjr983 BI LI T 0.5 mg/dL 05/27/2017 Comp Metabolic Quy131 AL BUMIN 4.1 g/dL 05/27/2017 Comp Metabolic Eck123 TP RO 7.1 g/dL 05/27/2017 Comp Metabolic Dhv378 GL OB 3.0 g/dL 05/27/2017 Comp Metabolic Fme120 A/ G Ratio 1.3 Ratio 05/27/2017 Comp Metabolic Bca838 Os mo 281 mOsmo 05/27/2017 Free T4 Qfn514 FREE T4 0.91 ng/dL 05/27/2017 Pt Fmg3828 PT 29.2 seconds 04/16/2017 Pt Pqd8601 INR 2.7 04/16/2017 Pt Jnk6138 Low Intensity - 1.5-2.0 04/16/2017 Pt Nwp2917 Mod intensity - 2.0-3.0 04/16/2017 Pt Zrc2832 Hi intensity - 3.0-4.0 04/16/2017 Pt Lyo7176 PT 30.7 seconds 03/31/2017 Pt Gyf4484 INR 2.9 03/31/2017 Pt Ypk5204 Low Intensity - 1.5-2.0 03/31/2017 Pt Fmb6543 Mod intensity - 2.0-3.0 03/31/2017 Pt Mjx6748 Hi intensity - 3.0-4.0 03/31/2017 Pt Sgk5839 PT 21.3 seconds 03/26/2017 Pt Afl2608 INR 1.9 03/26/2017 Pt Oug3170 Low Intensity - 1.5-2.0 03/26/2017 Pt Jhk5845 Mod intensity - 2.0-3.0 03/26/2017 Pt Fgn2707 Hi intensity - 3.0-4.0 03/26/2017 Pt Wqy9928 PT 19.8 seconds 03/22/2017 Pt Dzm1672 INR 1.7 03/22/2017 Pt Cek8945 Low Intensity - 1.5-2.0 03/22/2017 Pt Vtm1748 Mod intensity - 2.0-3.0 03/22/2017 Pt Mao2515 Hi intensity - 3.0-4.0 03/22/2017 Pt Xwr1870 PT 15.6 seconds 03/19/2017 Pt Vuo6926 INR 1.3 03/19/2017 Pt Mlc7944 Low Intensity - 1.5-2.0 03/19/2017 Pt Rak9132 Mod intensity - 2.0-3.0 03/19/2017 Pt Vki2421 Hi intensity - 3.0-4.0 03/19/2017 Pt Gpu5822 PT 13.7 seconds 03/15/2017 Pt Rsk9084 INR 1.1 03/15/2017 Pt Dyv4718 Low Intensity - 1.5-2.0 03/15/2017 Pt Aut8155 Mod intensity - 2.0-3.0 03/15/2017 Pt Yhp1210 Hi intensity - 3.0-4.0 03/15/2017 Pt Wtp2878 PT 25.8 seconds 01/28/2017 Pt Ceo0708 INR 2.4 01/28/2017 Pt Znc5395 Low Intensity - 1.5-2.0 01/28/2017 Pt Kcv4451 Mod intensity - 2.0-3.0 01/28/2017 Pt Mxk3392 Hi intensity - 3.0-4.0 01/28/2017 %Hba1C Vlc111 % HbA1c 00649-5 6.4 % 10/23/2016 %Hba1C Dmk494 Gluc Ave 137 mg/dL 10/23/2016 Comp Metabolic Lfw547 NA 138 mEq/L 10/23/2016 Comp Metabolic Qvr754 K 3.4 mEq/L 10/23/2016 Comp Metabolic Lpx112 CL 100 mEq/L 10/23/2016 Comp Metabolic Pur321 CO2 30.0 mEq/L 10/23/2016 Comp Metabolic Tiz623 AN ION GAP 11 10/23/2016 Comp Metabolic Lex029 GL UCOSE 139 mg/dL 10/23/2016 Comp Metabolic Wzf485 Cr eat 0.9 mg/dL 10/23/2016 Comp Metabolic Tsg434 eG FR 62 ml/min/1.73m2 10/23 Comp Metabolic Hcw703 BUN 22 mg/dL 10/23/2016 Comp Metabolic Ecp069 B/ C Ratio 23.4 Ratio 10/23/2016 Comp Metabolic Yjr958 CA LCIUM 8.7 mg/dL 10/23/2016 Comp Metabolic Zcl412 AL K PHOS 66 U/L 10/23/2016 Comp Metabolic Qho530 T(SGOT) 20 U/L 10/23/2016 Comp Metabolic Kph676 AL T(SGPT) 10 U/L 10/23/2016 Comp Metabolic Zsq350 BI LI T 0.5 mg/dL 10/23/2016 Comp Metabolic Dts165 AL BUMIN 3.5 g/dL 10/23/2016 Comp Metabolic Xtf703 TP RO 6.3 g/dL 10/23/2016 Comp Metabolic Ldh617 GL OB 2.8 g/dL 10/23/2016 Comp Metabolic Naw915 A/ G Ratio 1.3 Ratio 10/23/2016 Comp Metabolic Jfd598 Os mo 281 mOsmo 10/23/2016 Pt Pfx0427 PT 26.8 seconds 10/23/2016 Pt Qks7694 INR 2.7 10/23/2016 Pt Oht0741 Low Intensity - 1.5-2.0 10/23/2016 Pt Oos3627 Mod intensity - 2.0-3.0 10/23/2016 Pt Vvx7325 Hi intensity - 3.0-4.0 10/23/2016 Pt Ndq7721 PT 28.3 seconds 09/25/2016 Pt Hyy0202 INR 2.8 09/25/2016 Pt Izj8802 Low Intensity - 1.5-2.0 09/25/2016 Pt Wzs8950 Mod intensity - 2.0-3.0 09/25/2016 Pt Woq8505 Hi intensity - 3.0-4.0 09/25/2016 Metabolic Ord15 [...] Metabolic Ord15 CALCIUM 8.8 mg/dL 09/25/2016 Pt Vqc5883 PT 30.6 seconds 09/11/2016 Pt Ppe0789 INR 3.2 09/11/2016 Pt Loo7615 Low Intensity - 1.5-2.0 09/11/2016 Pt Nlu6869 Mod intensity - 2.0-3.0 09/11/2016 Pt Awu5189 Hi intensity - 3.0-4.0 09/11/2016 Comp Metabolic Tsl463 NA 138 mEq/L 09/11/2016 Comp Metabolic Lwx233 K 4.4 mEq/L 09/11/2016 Comp Metabolic Ygv002 CL 103 mEq/L 09/11/2016 Comp Metabolic Kqg236 CO2 31.0 mEq/L 09/11/2016 Comp Metabolic Htd279 AN ION GAP 8 09/11/2016 Comp Metabolic Vyf535 GL UCOSE 146 mg/dL 09/11/2016 Comp Metabolic Pft021 Cr eat 1.0 mg/dL 09/11/2016 Comp Metabolic Wkc982 eG FR 60 ml/min/1.73m2 09/11 Comp Metabolic Zpn655 BUN 16 mg/dL 09/11/2016 Comp Metabolic Trw540 B/ C Ratio 16.5 Ratio 09/11/2016 Comp Metabolic Mys348 CA LCIUM 8.7 mg/dL 09/11/2016 Comp Metabolic Xzt856 AL K PHOS 52 U/L 09/11/2016 Comp Metabolic Vpm621 T(SGOT) 19 U/L 09/11/2016 Comp Metabolic Pus685 AL T(SGPT) 11 U/L 09/11/2016 Comp Metabolic Cbx250 BI LI T 0.7 mg/dL 09/11/2016 Comp Metabolic Gaw379 AL BUMIN 3.3 g/dL 09/11/2016 Comp Metabolic Zkk792 TP RO 5.8 g/dL 09/11/2016 Comp Metabolic Knw802 GL OB 2.5 g/dL 09/11/2016 Comp Metabolic Bnq435 A/ G Ratio 1.3 Ratio 09/11/2016 Comp Metabolic Fyh444 Os mo 280 mOsmo 09/11/2016 C-Reactive Protein Qnt Crqnt CRP 0.1 mg/dl 08/21/2016 Comp Metabolic Baq289 NA 139 mEq/L 08/21/2016 Comp Metabolic Ywv902 K 4.1 mEq/L 08/21/2016 Comp Metabolic Eyr116 CL 102 mEq/L 08/21/2016 Comp Metabolic Hbj282 CO2 30.0 mEq/L 08/21/2016 Comp Metabolic Owg079 AN ION GAP 11 08/21/2016 Comp Metabolic Pna866 GL UCOSE 148 mg/dL 08/21/2016 Comp Metabolic Upk220 Cr eat 1.0 mg/dL 08/21/2016 Comp Metabolic Nuk038 eG FR 55 ml/min/1.73m2 08/21 Comp Metabolic Yol202 BUN 21 mg/dL 08/21/2016 Comp Metabolic Cex730 B/ C Ratio 20.2 Ratio 08/21/2016 Comp Metabolic Lzd944 CA LCIUM 9.4 mg/dL 08/21/2016 Comp Metabolic Kib029 AL K PHOS 63 U/L 08/21/2016 Comp Metabolic Aqk693 T(SGOT) 23 U/L 08/21/2016 Comp Metabolic Sik256 AL T(SGPT) 16 U/L 08/21/2016 Comp Metabolic Scp897 BI LI T 0.6 mg/dL 08/21/2016 Comp Metabolic Uja300 AL BUMIN 3.9 g/dL 08/21/2016 Comp Metabolic Ysa841 TP RO 6.8 g/dL 08/21/2016 Comp Metabolic Wix118 GL OB 2.9 g/dL 08/21/2016 Comp Metabolic Gnc358 A/ G Ratio 1.4 Ratio 08/21/2016 Comp Metabolic Zju656 Os mo 283 mOsmo 08/21/2016 Sed Rate Ord21 ESR 16 mm/hr 08/21/2016 Pt Rkb7113 PT 27.2 seconds 08/21/2016 Pt Khh8015 INR 2.7 08/21/2016 Pt Ijk7165 Low Intensity - 1.5-2.0 08/21/2016 Pt Fam0844 Mod intensity - 2.0-3.0 08/21/2016 Pt Qka6318 Hi intensity - 3.0-4.0 08/21/2016 Magnesium Ord90 Mag 1.9 mg/dL 08/21/2016 Pt Nub4767 PT 25.9 seconds 06/17/2016 Pt Jzq4943 INR 2.5 06/17/2016 Pt Pge7327 Low Intensity - 1.5-2.0 06/17/2016 Pt Crm7549 Mod intensity - 2.0-3.0 06/17/2016 Pt Uts7604 Hi intensity - 3.0-4.0 06/17/2016 Tsh Ord6 hTSH II 2.13 uIU/mL 06/08/2016 Free T4 Muz682 FREE T4 0.79 ng/dL 06/08/2016 Cbc With [...] 80.8 fl 06/08/2016 Cbc With Differential Ord2 [place]% 12.0 % 06/08/2016 Cbc With Differential Ord2 [...] 1.40 K/ul 06/08/2016 Cbc With Differential Ord2 [place] ABS# 0.7 K/ul 06/08/2016 Cbc With Differential Ord2 Eos ABS# 0.3 K/ul 06/08/2016 Cbc With Differential Ord2 Baso ABS# 0.1 K/ul 06/08/2016 %Hba1C Vhq960 % HbA1c 64293-7 6.2 % 06/08/2016 %Hba1C Cuf875 Gluc Ave 131 mg/dL 06/08/2016 Comp Metabolic Prq613 NA 138 mEq/L 06/08/2016 Comp Metabolic Gqg113 K 3.9 mEq/L 06/08/2016 Comp Metabolic Ere762 CL 105 mEq/L 06/08/2016 Comp Metabolic Gdp714 CO2 27.0 mEq/L 06/08/2016 Comp Metabolic Dhp743 AN ION GAP 10 06/08/2016 Comp Metabolic Det937 GL UCOSE 127 mg/dL 06/08/2016 Comp Metabolic Qcl405 Cr eat 1.0 mg/dL 06/08/2016 Comp Metabolic Rqj005 eG FR 59 ml/min/1.73m2 06/08 Comp Metabolic Jmr040 BUN 19 mg/dL 06/08/2016 Comp Metabolic Zcp263 B/ C Ratio 19.4 Ratio 06/08/2016 Comp Metabolic Awk597 CA LCIUM 9.2 mg/dL 06/08/2016 Comp Metabolic Edv705 AL K PHOS 77 U/L 06/08/2016 Comp Metabolic Suq448 T(SGOT) 19 U/L 06/08/2016 Comp Metabolic Kct865 AL T(SGPT) 13 U/L 06/08/2016 Comp Metabolic Jgi414 BI LI T 0.5 mg/dL 06/08/2016 Comp Metabolic Nwa491 AL BUMIN 3.8 g/dL 06/08/2016 Comp Metabolic Pqb521 TP RO 6.6 g/dL 06/08/2016 Comp Metabolic Raf411 GL OB 2.8 g/dL 06/08/2016 Comp Metabolic Ybh099 A/ G Ratio 1.4 Ratio 06/08/2016 Comp Metabolic Hbl929 Os mo 280 mOsmo 06/08/2016 Pt Cfi0111 PT 36.1 seconds 06/08/2016 Pt Tcg5367 INR 3.9 06/08/2016 Pt Bdj2352 Low Intensity - 1.5-2.0 06/08/2016 Pt Acw6232 Mod intensity - 2.0-3.0 06/08/2016 Pt Job2326 Hi intensity - 3.0-4.0 06/08/2016 Lipid Ord30 CHOL 149 mg/dL 06/08/2016 Lipid Ord30 HDL 46.0 mg/dl 06/08/2016 Lipid Ord30 TRIG 279 mg/dL 06/08/2016 Lipid Ord30 LDL 47 mg/dL 06/08/2016 Lipid Ord30 C/HDL 3.2 Ratio 06/08/2016 Pt Btb6041 PT 30.9 seconds 02/12/2016 Pt Piw9903 INR 3.2 02/12/2016 Pt Hkk0641 Low Intensity - 1.5-2.0 02/12/2016 Pt Owi1139 Mod intensity - 2.0-3.0 02/12/2016 Pt Zuy5963 Hi intensity - 3.0-4.0 02/12/2016 Free T4 Swn746 FREE T4 1.24 ng/dL 09/27/2015 %Hba1C Ywb977 % HbA1c 16275-6 6.4 % 09/27/2015 %Hba1C Yxx793 Gluc Ave 137 mg/dL 09/27/2015 Tsh Ord6 hTSH II 0.37 uIU/mL 09/27/2015 Pt Rlh3839 PT 26.2 seconds 09/27/2015 Pt Srt8803 INR 2.5 09/27/2015 Pt Cjq2368 Low Intensity - 1.5-2.0 09/27/2015 Pt Vtc8349 Mod intensity - 2.0-3.0 09/27/2015 Pt Vyp5782 Hi intensity - 3.0-4.0 09/27/2015 Pt Bsv0874 PT 27.6 seconds 2015 Pt Xrp8769 INR 2.7 2015 Pt Dnu4320 Low Intensity - 1.5-2.0 2015 Pt Eot4374 Mod intensity - 2.0-3.0 2015 Pt Vor1917 Hi intensity - 3.0-4.0 2015 %Hba1C Vda377 % HbA1c 98616-3 6.1 % 06/11/2015 %Hba1C Fht205 Gluc Ave 128 mg/dL 06/11/2015 Cbc With [...] Ord2 RDW 15.8 % 06/10/2015 Comp Metabolic Tut390 NA 139 mEq/L 06/10/2015 Comp Metabolic Huy603 K 4.1 mEq/L 06/10/2015 Comp Metabolic Nio967 CL 105 mEq/L 06/10/2015 Comp Metabolic Kra646 CO2 27.0 mEq/L 06/10/2015 Comp Metabolic Wef615 AN ION GAP 11 06/10/2015 Comp Metabolic Kcn138 GL UCOSE 127 mg/dL 06/10/2015 Comp Metabolic Ffm181 Cr eat 1.0 mg/dL 06/10/2015 Comp Metabolic Ikc199 eG FR 59 ml/min/1.73m2 06/10 Comp Metabolic Kct149 BUN 21 mg/dL 06/10/2015 Comp Metabolic Yqx856 B/ C Ratio 21.2 Ratio 06/10/2015 Comp Metabolic Kna178 CA LCIUM 9.2 mg/dL 06/10/2015 Comp Metabolic Vej365 AL K PHOS 87 U/L 06/10/2015 Comp Metabolic Ivv404 T(SGOT) 20 U/L 06/10/2015 Comp Metabolic Uoy469 AL T(SGPT) 17 U/L 06/10/2015 Comp Metabolic Nih793 BI LI T 0.4 mg/dL 06/10/2015 Comp Metabolic Aeh737 AL BUMIN 4.1 g/dL 06/10/2015 Comp Metabolic Cwq394 TP RO 7.2 g/dL 06/10/2015 Comp Metabolic Uzn465 GL OB 3.1 g/dL 06/10/2015 Comp Metabolic Dod433 A/ G Ratio 1.3 Ratio 06/10/2015 Comp Metabolic Itv927 Os mo 282 mOsmo 06/10/2015 Tsh Ord6 hTSH II 0.86 uIU/mL 06/10/2015 Lipid Ord30 CHOL 161 mg/dL 06/10/2015 Lipid Ord30 HDL 49.0 mg/dl 06/10/2015 Lipid Ord30 TRIG 208 mg/dL 06/10/2015 Lipid Ord30 LDL 70 mg/dL 06/10/2015 Lipid Ord30 C/HDL 3.3 Ratio 06/10/2015 Pt Lqk9240 PT 25.0 seconds 04/09/2015 Pt Yfe2727 INR 2.4 04/09/2015 Pt Zxy5062 Low Intensity - 1.5-2.0 04/09/2015 Pt Ziq4595 Mod intensity - 2.0-3.0 04/09/2015 Pt Mik8613 Hi intensity - 3.0-4.0 04/09/2015 Free T4 Dfh750 FREE T4 1.05 ng/dL 01/22/2015 Pt Thy3535 PT 27.2 seconds 01/22/2015 Pt Xir6281 INR 2.6 01/22/2015 Pt Qdg4039 Low Intensity - 1.5-2.0 01/22/2015 Pt Hpl9692 Mod intensity - 2.0-3.0 01/22/2015 Pt Egb9221 Hi intensity - 3.0-4.0 01/22/2015 Cbc With [...] Differential Ord2 RDW 15.2 % 01/22/2015 B12 Yhy616 B12 402.00 pg/ml 01/22/2015 Tsh Ord6 hTSH II 0.65 uIU/mL 01/22/2015 Lipid Ord30 CHOL 166 mg/dL 01/22/2015 Lipid Ord30 HDL 48.0 mg/dl 01/22/2015 Lipid Ord30 TRIG 264 mg/dL 01/22/2015 Lipid Ord30 LDL 65 mg/dL 01/22/2015 Lipid Ord30 C/HDL 3.5 Ratio 01/22/2015 Comp Metabolic Tcm137 NA 138 mEq/L 01/22/2015 Comp Metabolic Lpl714 K 4.1 mEq/L 01/22/2015 Comp Metabolic Nvn129 CL 104 mEq/L 01/22/2015 Comp Metabolic Bue191 CO2 29.0 mEq/L 01/22/2015 Comp Metabolic Plu376 AN ION GAP 9 01/22/2015 Comp Metabolic Frg095 GL UCOSE 106 mg/dL 01/22/2015 Comp Metabolic Ulo113 Cr eat 0.9 mg/dL 01/22/2015 Comp Metabolic Ynz841 eG FR 63 ml/min/1.73m2 01/22 Comp Metabolic Guz082 BUN 21 mg/dL 01/22/2015 Comp Metabolic Hxc958 B/ C Ratio 22.3 Ratio 01/22/2015 Comp Metabolic Gqu144 CA LCIUM 9.4 mg/dL 01/22/2015 Comp Metabolic Xbn683 AL K PHOS 83 U/L 01/22/2015 Comp Metabolic Jdg305 T(SGOT) 23 U/L 01/22/2015 Comp Metabolic Orp233 AL T(SGPT) 18 U/L 01/22/2015 Comp Metabolic Hvp191 BI LI T 0.8 mg/dL 01/22/2015 Comp Metabolic Psx225 AL BUMIN 4.2 g/dL 01/22/2015 Comp Metabolic Hyj270 TP RO 7.3 g/dL 01/22/2015 Comp Metabolic Esc693 GL OB 3.1 g/dL 01/22/2015 Comp Metabolic Vlm300 A/ G Ratio 1.4 Ratio 01/22/2015 Comp Metabolic Fph092 Os mo 279 mOsmo 01/22/2015 Review of [...] Date URINALYSIS NONAUTO W /O SCOPE CPT-4: 91388 03/05/2017 Vital Signs Date Vital 04/14/2018 Blood Pressure 1: 116/78 Code: 8480-6 BMI: 41.6 Code: 98367-6 Heart Rate 1: 72 bpm Height: 5'1" SpO2: 98% Weight: 220 lbs 01/18/2018 Blood Pressure 1: 132/74 Code: 8480-6 BMI: 43.5 Code: 47589-5 Heart Rate 1: 70 bpm Height: 5'1" SpO2: 97% Weight: 230 lbs 01/04/2018 Blood Pressure 1: 134/76 Code: 8480-6 BMI: 42.7 Code: 27739-7 Heart Rate 1: 83 bpm Height: 5'1" SpO2: 98% Weight: 226 lbs 09/23/2017 Blood Pressure 1: 124/76 Code: 8480-6 BMI: 42.3 Code: 65031-1 Heart Rate 1: 94 bpm Height: 5'1" SpO2: 96% Weight: 224 lbs 05/27/2017 Blood Pressure 1: 146/78 Code: 8480-6 BMI: 41.4 Code: 91369-3 Heart Rate 1: 85 bpm Height: 5'1" SpO2: 98% Weight: 219 lbs 02/24/2017 Blood Pressure 1: 138/66 Code: 8480-6 BMI: 41.4 Code: 09618-5 Heart Rate 1: 78 bpm Height: 5'1" SpO2: 97% Weight: 219 lbs 11/02/2016 Blood Pressure 1: 144/72 Code: 8480-6 BMI: 46.1 Code: 53426-9 Heart Rate 1: 78 bpm Height: 5'1" SpO2: 98% Weight: 244 lbs 09/30/2016 Blood Pressure 1: 130/76 Code: 8480-6 BMI: 45.0 Code: 16092-0 Heart Rate 1: 86 bpm Height: 5'1" SpO2: 98% Weight: 238 lbs 09/10/2016 Blood Pressure 1: 136/68 Code: 8480-6 BMI: 46.3 Code: 18500-2 Heart Rate 1: 83 bpm Height: 5'1" SpO2: 98% Weight: 245 lbs 08/20/2016 Blood Pressure 1: 142/78 Code: 8480-6 BMI: 45.3 Code: 13114-1 Heart Rate 1: 84 bpm Height: 5'1" SpO2: 99% Weight: 240 lbs 06/08/2016 Blood Pressure 1: 134/76 Code: 8480-6 BMI: 44.2 Code: 72937-1 Heart Rate 1: 86 bpm Height: 5'1" SpO2: 96% Weight: 234 lbs 04/02/2016 Blood Pressure 1: 142/70 Code: 8480-6 BMI: 44.6 Code: 14243-8 Heart Rate 1: 78 bpm Height: 5'1" SpO2: 97% Weight: 236 lbs 01/14/2016 Blood Pressure 1: 146/72 Code: 8480-6 BMI: 44.2 Code: 77993-2 Heart Rate 1: 86 bpm Height: 5'1" SpO2: 96% Weight: 234 lbs 10/02/2015 Blood Pressure 1: 158/76 Code: 8480-6 BMI: 44.2 Code: 57568-5 Heart Rate 1: 67 bpm Height: 5'1" SpO2: 97% Weight: 234 lbs 07/15/2015 Blood Pressure 1: 148/78 Code: 8480-6 Blood Pressure 1: 200/90 Code: 8480-6 BMI: 44.0 Code: 26721-2 Heart Rate 1: 89 bpm Height: 5'1" SpO2: 97% Weight: 233 lbs 06/10/2015 Blood Pressure 1: 140/82 Code: 8480-6 BMI: 44.0 Code: 77534-6 Heart Rate 1: 78 bpm Height: 5'1" [...] wearing crocs and there was a new ecuadorean on the floor: her foot didn't move [...] Encounters Encounter Performer Loca tion Codes Date ([id number]) [id number] EST. 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 P ATIENT, LEVEL III Diagnosis: Localized edema[ICD10: R60.0] Diagnosis: Gastro-esophageal reflux disease without esophagitis[ICD10: K21.9] Edna Almanza MD, [facility] CPT-4: 33907 01/18/2018 ([id number]) [id number] EST. P ATIENT, LEVEL IV Diagnosis: Gastro-esophageal reflux disease without esophagitis[ICD10: K21.9] Diagnosis: Localized edema[ICD10: R60.0] Diagnosis: Essential (primary) hypertension[ICD10: I10] Diagnosis: Hypothyroidism, unspecified[ICD10: E03.9] Diagnosis: Impaired fasting glucose[ICD10: R73.01] Edna Almanza MD, [facility] CPT-4: 92147 01/04/2018 ([id number]) [id number] EST. 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 PATIENT, LEVEL III Diagnosis: Pain in right hip[ICD10: M25.551] Nata Almanza MD, [facility] CPT-4: 94525 02/24/2017 ([id number]) [id number] EST. P ATIENT, LEVEL IV Diagnosis: Essential (primary) hypertension[ICD10: I10] Diagnosis: Localized edema[ICD10: R60.0] Diagnosis: Pain in right hip[ICD10: M25.551] Sarai Almanza MD, [facility] CPT-4: 46357 11/02/2016 ([id number]) [id number] EST. P ATIENT, LEVEL IV Diagnosis: Essential (primary) hypertension[ICD10: I10] Diagnosis: Localized edema[ICD10: R60.0] Sarai Almanza MD, [facility] CPT-4: 96195 09/30/2016 30432 EST. PATIENT, LEVEL IV Diagnosis: Localized edema[ICD10: R60.0] Diagnosis: Pain in joints of left hand[ICD10: M25.542] Diagnosis: Pain in joints of right hand[ICD10: M25.541] Nata Almanza MD, [facility] CPT-4: 76431 09/10/2016 14704 EST. PATIENT, LEVEL IV Diagnosis: Localized edema[ICD10: R60.0] Diagnosis: Pain in joints of left hand[ICD10: M25.542] Diagnosis: Pain in joints of right hand[ICD10: M25.541] Diagnosis: Other fatigue[ICD10: R53.83] Nata Almanza MD, [facility] CPT-4: 37240 08/20/2016 88040 EST. 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 PATIENT, LEVEL IV Diagnosis: Other allergic rhinitis[ICD10: J30.89] Diagnosis: Acute laryngopharyngitis[ICD10: J06.0] Nata Almanza MD, [facility] CPT-4: 55295 04/02/2016 60670 EST. PATIENT, LEVEL IV Diagnosis: Left upper quadrant pain[ICD10: R10.12] Nata Almanza MD, [facility] CPT-4: 30304 01/14/2016 80934 EST. PATIENT, LEVEL IV Diagnosis: Pain in left shoulder[ICD10: M25.512] Diagnosis: Body mass index (BMI) 40.0-44.9, adult[ICD10: Z68.41] Nata Almanza MD, [facility] CPT-4: 87827 10/02/2015 91817 EST. PATIENT, LEVEL IV Diagnosis: Pain in left leg[ICD10: M79.605] Diagnosis: Other [place] [facility] (current[facility] drug therapy[ICD10: Z79.899] Nata Almanza MD, [facility] CPT-4: 78001 07/15/2015 ([id number]) 98386 EST. 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: Other [place] [facility] (current) drug therapy[ICD10: Z79.899] Edna Almanza MD, [facility] CPT-4: 55447 06/10/2015 (22072) OFFICE VISI T, NEW - LEVEL 4 Diagnosis: ESSENTIAL HYPERTENSION[ICD9: 401.9] Diagnosis: HYPOTHYROIDISM[ICD9: 244.9] Diagnosis: ENCNTR LONG-RX USE NEC[ICD9: V58.69] Diagnosis: HYPERLIPIDEMIA[ICD9: 272.4] Diagnosis: Vitamin B12 deficiency[ICD9: 266.2] Diagnosis: Status post gastric surgery[ICD9: V45.89] Diagnosis: Snoring[ICD9: 786.09] Sarai Almanza MD, [facility] CPT-4: 37969 01/22/2015 Plan of Care Planned Activity Notes [...] Hgb A1C 04/14/2018 Appointment: Edna Douglas WPtel: [facility] [place] [phone] (15 min) Moderate 04/14/2018 Patient Education: Patient [...] to further attempt to reduce peripheral edema. MDEN-uajjqyck-baryfiyc prilosec BID and carafate QID -discussed low spice, low acidic diet 01/18/2018 Appointment: Edna Douglas WPtel: [phone] (15 min) Moderate 01/18/2018 Patient Education: [...] of control. 01/04/2018 Appointment: Edna Douglas WPtel: [address] [place], [place] [phone] (30 min) Complex 01/04/2018 Patient Education: Patient Medication Summary Completed 01/04/2018 Care Plan[facility]7 Pending 01/04/2018 Visit Plan: Abdominal hernia - not able to be taken to surgery by local providers and pt has been seen at [facility] and that surgeon felt like Kat [...] home. 09/23/2017 App[facility]ment[phone] [facility] ([facility] min) Moderate 09/23/2017 Patient Education: Patient [...] medications. 05/27/2017 App[facility]ment[phone] [place] (30 min) Complex 05/27/2017 Patient Education: [...] Dr. Palacios. 02/24/2017 Appointment: Nata Hsu WPtel: [facility] (30 min) Complex 02/24/2017 Patient Education: [...] Chaney. 11/02/2016 Appointment: Sarai Almanza WPtel: [phone] [facility] (15 min) Moderate 11/02/2016 Patient [...] edema. 09/30/2016 Appointment: Sarai Almanza WPtel: [phone] (15 min) Moderate 09/30/2016 Patient Education: [...] peripheral edema. 09/10/2016 Appointment: Nata Hsu WPtel: [facility] (30 min) Complex 09/10/2016 Patient Education: [...] peripheral edema. 08/20/2016 Appointment: Nata Hsu WPtel: [facility] [address] (30 min) Complex 08/20/2016 Patient Education: Patient Medication Summary Completed 08/20/2016 Referral: Otf Lee [address] Referral Initiated 07/02/2016 Visit Plan: Chronic [...] 06/08/2016 Care Plan: Referral Order SNOMED-CT : [id number] Pending 06/08/2016 Visit Plan: URI - Pt [...] [phone] (30 min) Complex 04/02/2016 Patient Education: Patient [...] pain 01/14/2016 Appointment: [facility] Douglas [phone] [phone] [place] (30 min) Complex 01/14/2016 Patient Education: Patient Medication Summary Completed 01/14/2016 Patient Education: Obesity Completed 01/14/2016 Care Plan: BMI Above normal followup DAVID F-MGMT EDUC & TRAIN 1 PT Pending 10/24/2015 Care Plan: X-RAY EXAM OF SHOULDER LOINC : 06434-0 Pending 10/24/2015 Visit Plan: Left shoulder pain [...] check. 10/02/2015 Appointment: [facility] Douglas [phone] [phone] (15 min) Moderate 10/02/2015 Patient Education: Patient [...] ses Completed 06/10/2015 Appointment: Sarai Almanza WPtel: [address] [place], [place] [phone] (15 min) Moderate 04/22/2015 Visit Plan: Hypertension [...] have surgical fixation - planning occurring at [facility]. Snoring - Sleep apnea symptoms with [...] medications. 01/22/2015 Appointment: Sarai Almanza WPtel: [address] [place], [place] [phone] [place] ([place]) New Patient 01/22/2015 Patient Education: Patient Medication Summary Completed 01/22/2015 Patient Education: Hypertension Completed 01/22/2015 Referral: [facility] Referral Initiated Instructions Comment . Chronic Anticoagul [...] pt has been seen at [facility] and that surgeon felt like Kat [...] to further attempt to reduce peripheral edema. SSEC-ukzbahdj-pzctzpxe prilosec BID and carafate QID -discussed low [...] injection from dr. Chaney. . Hypertension - victor hugo heller controlled - continue with current medications, continue [...] have surgical fixation - planning occurring at [facility]. Snoring - Sleep apnea symptoms with [...]
--- OUTSIDE RECORDS SUMMARY | 2020-01-16 23:50 | XMS REPORT | CCD ---
Author Author Kat Almanza Organization Sarai Almanza MD, [facility] Address [address] [place] [address] Phone Care Team Providers Care Clinical Psychologist Name Role Phone PP Unavailable CCM Unavailable Summary Purpose Interface Exchange Insurance Providers Payer name Policy type / Coverage type Covered alliance party ID Effective Begin Date Effective End Date WPS Medicare Part B Medicare Part B [id number] [address] [place] Medicare Part B [id number] 2017 Unknown Family history Father Diagnosis Age At Onset Hyperlipidemia Unknown Heart Attack Unknown Mother Diagnosis Age At Onset Arthritis Unknown Social History Social History Element Codes Description Effective Dates Marital status Unknown M arried Nathan 09/30/2016 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 Number of children Unknown 3 01/22/[address]: 716890026 Never smoker 01/22/[address]: 738881879 Never drinks alcohol 01/22/2015 Allergies, Adverse Reactions, [...] ICD-9: 790.21 ICD-10: R73.01 Active 05/27/2017 Unknown [facility] [...] 780.79 ICD-10: R53.83 Active 08/20/2016 Unknown Other sorter 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 parts (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 rent) drug therapy ICD-9: V58.69 ICD-10: [...] cose ICD-9: 790.21 ICD-10: R73.01 05/27/2017 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 ICD-9: V58.61 [...] ICD-9: 780.79 ICD-10: R53.83 08/20/2016 Active Other sorter upholstery parts (cur rent) drug therapy ICD-9: V58.69 ICD-10: [...] Fill Instructions Carafate 1 gram tablet RxNorm: 809006 TAKE ONE TABLET BY MOUTH BEFORE MEALS AN D AT BEDTIME 05/18/2018 07/12/2018 Active Generic For:CARAFATE 1GM 8:38:28 AM Synthroid 137 mcg ta blet RxNorm: 466188 TAKE 1 TABLET BY MOUT H ONCE DAILY 05/18/2018 11/13/2018 Ac tive Generic For:SYNTHROID 137MCG TAB 2017 8:57:54 AM spironolactone 25 mg tablet RxNorm: 730410 TAKE 1 TABLET BY MOUT H EVERY DAY 05/18/2018 05/12/2019 Ac tive Generic For:*ALDACTONE 25MG 05/18/2018 8:57:50 AM allopurinol 300 mg t ablet RxNorm: 524862 TAKE 1 TABLET BY MOUT H ONCE DAILY. 04/18/2018 10/14/2018 Ac tive Generic For:ZYLOPRIM 300 MG TABLET 03/22 9:13:47 AM Lasix 20 mg tablet RxNorm: 120825 TAKE ONE TABLET BY MOUTH DAILY 04/18/2018 08/15/2018 Ac tive Generic For:LASIX 20MG 04/18/2018 9:13: 50 AM Carafate 1 gram tablet RxNorm: 524066 TAKE ONE TABLET BY MOUTH BEFORE MEALS AN D AT BEDTIME 04/18/2018 05/17/2018 Inactive Generic For:CARAFATE 1GM 1 9:32:51 AM Coumadin 5 mg tablet RxNorm: 358731 TAKE 1 TABLET BY MOUTH DIRECTED 03/21/2018 09/16/2018 Ac tive Generic For:COUMADIN 5MG TAB 03/21/2018 9:13:00 AM Carafate 1 gram tablet RxNorm: 294790 TAKE ONE TABLET BY MOUTH BEFORE MEALS AN D AT BEDTIME 03/21/2018 04/17/2018 Inactive Generic For:CARAFATE 1GM 1 9:14:24 AM Carafate 1 gram tablet RxNorm: 869716 1 Tablet(s) PO AC & HS 02/17/2018 03/20/2018 Inactive atenolol 100 mg tablet RxNorm: 821284 1 Tablet(s) PO daily 02/04/2018 09/01/2018 Active atenolol 50 mg tablet RxNorm: 918650 1 Tablet(s) PO daily 02/03/2018 02/03/2018 Inactive omeprazole 20 mg cap sean,delayed release RxNorm: 977367 1 Capsule(s) BID 01/21/2018 01/15/2019 Ac tive Generic For:PRILOSEC 20MG 07/22/2017 8:5 8:20 AM Carafate 1 gram tablet RxNorm: 299271 1 Tablet(s) PO AC & HS 01/21/2018 02/16/2018 Inactive Carafate 1 gram tablet RxNorm: 309972 1 Tablet(s) PO AC & HS 01/18/2018 01/20/2018 Inactive Carafate 1 gram tablet RxNorm: 912308 1 Tablet(s) PO AC & HS 01/18/2018 02/27/2018 Inactive Carafate 1 gram tablet RxNorm: 440687 1 Tablet(s) PO AC & HS TAKE ONE TABLET B Y MOUTH TWICE DAILY 01/18/2018 05/17/2018 Inactive Generic For:CARAFATE 1GM 0 12/20/2017 9:10:56 AM omeprazole 20 mg cap sean,delayed release RxNorm: 780106 Capsule(s) TAKE 1 CAP SEAN BY MOUTH EVERY DAY 01/17/2018 01/20/2018 Inactive Generic For:PRILOSEC 20MG 0 07/22/2017 8:58:20 AM omeprazole 20 mg cap sean,delayed release RxNorm: 343581 Capsule(s) TAKE 1 CAP SEAN BY MOUTH EVERY DAY 01/14/2018 01/16/2018 Inactive Generic For:PRILOSEC 20MG 07/22/2017 8:58:20 AM clonazepam 0.5 mg ta blet RxNorm: 346944 1 Tablet(s) PO BID 01/07/2018 06/05/2018 Inactive Plavix 75 mg tablet RxNorm: 386776 1 Tablet(s) PO daily 01/07/2018 07/05/2018 Active Carafate 1 gram tablet RxNorm: 111095 1 Tablet(s) PO AC & HS 01/04/2018 01/17/2018 Inactive sodium bicarbonate 6 50 mg tablet RxNorm: 812211 TAKE 2 TABLETS BY JAVON TH TWICE DAILY 12/20/2017 06/17/2018 Ac tive 12/20/2017 9:10:59 AM Lasix 20 mg tablet RxNorm: 846236 TAKE ONE TABLET BY MOUTH DAILY 12/20/2017 04/17/2018 In active Generic For:LASIX 20MG 12/20/2017 9:11: 03 AM Carafate 1 gram tablet RxNorm: 691712 TAKE ONE TABLET BY MOUTH TWICE DAILY 12/20/2017 01/17/2018 In active Generic For:CARAFATE 1GM 12/20/2017 9:1 0:56 AM Synthroid 137 mcg ta blet RxNorm: 080124 TAKE 1 TABLET BY MOUT H ONCE DAILY 11/19/2017 05/17/2018 In active Generic For:SYNTHROID 137MCG TAB 2017 8:58:04 AM Detrol LA 4 mg capsu le,extended release RxNorm: 029803 TAKE 1 CAPSULE BY JAVON TH ONCE DAILY 10/20/2017 04/13/2018 Inactive Generic For:DETROL LA 4MG C AP 10/20/2017 9:01:56 AM allopurinol 300 mg t ablet RxNorm: 878854 TAKE 1 TABLET BY MOUT H ONCE DAILY. 10/20/2017 04/17/2018 In active Generic For:ZYLOPRIM 300 MG TABLET 07/2017 9:01:59 AM Coumadin 5 mg tablet RxNorm: 249910 1 Tablet(s) PO UD 10/01/2017 03/20/2018 Inactive cyclobenzaprine 5 mg tablet RxNorm: 563188 1 Tablet(s) PO TID as needed myscle spasm 09/23/2017 10/12/2017 Inactive Lipitor 40 mg tablet RxNorm: 667415 TAKE 1 TABLET BY MOUTH ONCE DAILY 09/20/2017 09/14/2018 Ac tive Generic For:LIPITOR 40MG 09/20/2017 8:5 6:04 AM atenolol 100 mg tablet RxNorm: 653426 1 Tablet(s) PO daily 08/30/2017 02/03/2018 Inactive atenolol 50 mg tablet RxNorm: 407222 1 Tablet(s) PO daily 08/30/2017 08/30/2017 Inactive Lovenox 30 mg/0.3 mL subcutaneous syringe RxNorm: 659144 0.3 Milliliter(s) SQ Q12H 08/24/2017 09/06/2017 In active Lasix 20 mg tablet RxNorm: 625403 TAKE ONE TABLET BY MOUTH DAILY 08/23/2017 12/19/2017 In active Generic For:LASIX 20MG 08/21/2017 9:04: 27 AM Synthroid 137 mcg ta blet RxNorm: 658864 TAKE 1 TABLET BY MOUT H ONCE DAILY 08/23/2017 11/18/2017 In active Generic For:SYNTHROID 137MCG TAB 2017 9:04:30 AM Lovenox 30 mg/0.3 mL subcutaneous syringe RxNorm: 912532 0.3 Milliliter(s) SQ Q12H 08/10/2017 08/23/2017 In active clonazepam 0.5 mg ta blet RxNorm: 878029 1 Tablet(s) PO BID 08/04/2017 12/30/2017 Inactive Coumadin 4 mg tablet RxNorm: 600998 TAKE 1 TABLET BY MOUTH THREE TIMES PER W EWIIAAPAAYP (WEDNESDAY, WEDNESDAY AND WEDNESDAY) 07/22/2017 02/16/2018 Inactive Generic For:COUMADIN 4MG 07/22/2017 8:58:26 AM Coumadin 4 mg tablet RxNorm: 072868 TAKE 1 TABLET BY MOUTH THREE TIMES PER W EWIIAAPAAYP (WEDNESDAY, WEDNESDAY AND WEDNESDAY) 07/22/2017 02/16/2018 Inactive Generic For:COUMADIN 4MG 07/22/2017 8:58:26 AM omeprazole 20 mg cap sean,delayed release RxNorm: 668861 TAKE 1 CAPSULE BY JAVON TH EVERY DAY 07/22/2017 01/13/2018 Inactive Generic For:PRILOSEC 20MG 07/22/2017 8: 58:20 AM venlafaxine ER 75 mg capsule,extended release 24 hr RxNorm: 330955 TAKE 1 CAPSULE BY MOUTH ONCE DAILY 06/22/2017 06/16/2018 Active Generic For:*EFFEXOR XR 75MG 06/19/2017 12:23:45 PM sodium bicarbonate 6 50 mg tablet RxNorm: 127657 TAKE 2 TABLETS BY JAVON TH TWICE DAILY 06/22/2017 12/18/2017 In active 06/19/2017 12:23:30 PM Coumadin 5 mg tablet RxNorm: 524098 1 Tablet(s) PO UD 06/01/2017 09/30/2017 Inactive Keflex 500 mg capsule RxNorm: 913904 1 Capsule(s) PO TID 05/27/2017 06/02/2017 Inactive Synthroid 137 mcg ta blet RxNorm: 604343 TAKE 1 TABLET BY MOUT H ONCE DAILY 05/24/2017 08/21/2017 In active Generic For:SYNTHROID 137MCG TAB 2016 8:55:59 AM Carafate 1 gram tablet RxNorm: 852415 TAKE ONE TABLET BY MOUTH TWICE DAILY 05/24/2017 12/19/2017 In active Generic For:CARAFATE 1GM 05/24/2017 8:5 5:54 AM spironolactone 25 mg tablet RxNorm: 551166 1 Tablet(s) PO daily 05/24/2017 05/17/2018 Inactive Detrol LA 4 mg capsu le,extended release RxNorm: 455522 1 Capsule(s) PO daily TAKE 1 CAPSULE BY MOUTH ONCE DAILY 05/10/2017 10/19/2017 Inactive Generic For:DETROL LA 4MG CAP 02/19/2017 2:36:00 PM Lasix 20 mg tablet RxNorm: 622597 TAKE ONE TABLET BY MOUTH DAILY 04/23/2017 08/20/2017 In active Generic For:LASIX 20MG 04/23/2017 9:04: 01 AM Coumadin 4 mg tablet RxNorm: 352626 TAKE 1 TABLET BY MOUTH THREE TIMES PER W EWIIAAPAAYP (WEDNESDAY, WEDNESDAY AND WEDNESDAY) 04/23/2017 07/21/2017 Inactive Generic For:COUMADIN 4MG 04/23/2017 9:04:05 AM allopurinol 300 mg t ablet RxNorm: 290193 TAKE 1 TABLET BY MOUT H ONCE DAILY. 04/23/2017 10/19/2017 In active Generic For:ZYLOPRIM 300 MG TABLET 08/2016 9:03:57 AM potassium chloride 2 0 mEq/15 mL oral liquid RxNorm: 315656 Milliliter(s) 30 Milliliter(s) (40mEq) PO daily 03/24/2017 07/21/2017 Inactive Lovenox 30 mg/0.3 mL subcutaneous syringe RxNorm: 980628 0.3 Milliliter(s) SQ Q12H 03/22/2017 03/26/2017 In active Lovenox 30 mg/0.3 mL subcutaneous syringe RxNorm: 466353 0.3 Milliliter(s) SQ Q12H 03/19/2017 03/20/2017 In active Lovenox 30 mg/0.3 mL subcutaneous syringe RxNorm: 055735 0.3 Milliliter(s) SQ Q12H 03/16/2017 03/18/2017 In active clonazepam 0.5 mg ta blet RxNorm: 447382 1 Tablet(s) PO BID 03/02/2017 07/28/2017 Inactive Lovenox 30 mg/0.3 mL subcutaneous syringe RxNorm: 205554 1 injection SQ BID do NOT take the night time dose the day before surgery, or the morning dose the day of surgery 03/01/2017 03/07/2017 Inactive Lovenox 30 mg/0.3 mL subcutaneous syringe RxNorm: 409646 1 injection SQ BID 03/01/2017 02/28/2017 In active Detrol LA 4 mg capsu le,extended release RxNorm: 516460 TAKE 1 CAPSULE BY JAVON TH ONCE DAILY 02/19/2017 05/09/2017 Inactive Generic For:DETROL LA 4MG C AP 02/19/2017 2:36:00 PM hydrocodone 5 mg-humberto taminophen 325 mg tablet RxNorm: 377464 1-2 Tablet(s) PO Q6 P RN 02/04/2017 No Stop Date Active Zetia 10 mg tablet RxNorm: 459590 TAKE 1 TABLET BY MOUTH DAILY 01/25/2017 04/13/2018 Inactive 01/23/2017 9:03:48 AM omeprazole 20 mg cap sean,delayed release RxNorm: 568896 TAKE 1 CAPSULE BY JAVON TH EVERY DAY 01/25/2017 07/21/2017 Inactive Generic For:PRILOSEC 20MG 01/23/2017 9: 03:45 AM Coumadin 4 mg tablet RxNorm: 718341 TAKE 1 TABLET BY MOUTH THREE TIMES PER W EWIIAAPAAYP (WEDNESDAY, WEDNESDAY AND WEDNESDAY) 01/25/2017 04/22/2017 Inactive Generic For:COUMADIN 4MG 01/23/2017 9:03:51 AM sodium bicarbonate 6 50 mg tablet RxNorm: 094504 TAKE 2 TABLETS BY JAVON TH TWICE DAILY 12/24/2016 06/21/2017 In active 12/24/2016 9:09:27 AM Lasix 20 mg tablet RxNorm: 156017 1 Tablet(s) PO daily 12/24/2016 04/22/2017 Inactive Synthroid 137 mcg ta blet RxNorm: 283383 TAKE 1 TABLET BY MOUT H ONCE DAILY 11/24/2016 05/22/2017 In active Generic For:SYNTHROID 137MCG TAB 2016 9:04:37 AM Coumadin 4 mg tablet RxNorm: 385714 TAKE 1 TABLET BY MOUTH THREE TIMES PER W EWIIAAPAAYP (WEDNESDAY, WEDNESDAY AND WEDNESDAY) 11/24/2016 01/22/2017 Inactive Generic For:COUMADIN 4MG 11/24/2016 9:04:41 AM hydrocodone 5 mg-humberto taminophen 325 mg tablet RxNorm: 822531 1-2 Tablet(s) PO Q6 P RN 11/17/2016 02/03/2017 In active Carafate 1 gram tablet RxNorm: 554402 TAKE ONE TABLET BY MOUTH TWICE DAILY 10/27/2016 05/23/2017 In active Generic For:CARAFATE 1GM 10/26/2016 8:3 9:42 AM allopurinol 300 mg t ablet RxNorm: 658012 Tablet(s) TAKE 1 TABL ET BY MOUTH ONCE DAILY. 10/26/2016 04/22/2017 Inactive Lipitor 40 mg tablet RxNorm: 421728 1 Tablet(s) PO daily 09/25/2016 09/19/2017 Inactive Coumadin 4 mg tablet RxNorm: 147407 TAKE 1 TABLET BY MOUTH THREE TIMES PER W EWIIAAPAAYP (WEDNESDAY, WEDNESDAY AND WEDNESDAY) 09/25/2016 11/23/2016 Inactive Generic For:COUMADIN 4MG 09/25/2016 8:55:58 AM Zetia 10 mg tablet RxNorm: 262892 1 Tablet(s) PO daily 09/25/2016 01/22/2017 Inactive gave 1 month of samples clonazepam 0.5 mg ta blet RxNorm: 512204 1 Tablet(s) PO BID 09/21/2016 02/16/2017 Inactive Lasix 20 mg tablet RxNorm: 978101 1 Tablet(s) PO daily 09/15/2016 12/23/2016 Inactive potassium chloride 2 0 mEq/15 mL oral liquid RxNorm: 834359 Milliliter(s) 30 Milliliter(s) (40mEq) PO daily 09/15/2016 01/12/2017 Inactive Lasix 20 mg tablet RxNorm: 649507 2 Tablet(s) PO daily 09/10/2016 09/12/2016 Inactive Lasix 20 mg tablet RxNorm: 124867 1 Tablet(s) PO daily 08/28/2016 08/30/2016 Inactive Lasix 20 mg tablet RxNorm: 928439 1 Tablet(s) PO daily 08/20/2016 08/22/2016 Inactive Detrol LA 4 mg capsu le,extended release RxNorm: 387753 TAKE 1 CAPSULE BY JAVON ONCE DAILY 07/27/2016 02/18/2017 Inactive Generic For:DETROL LA 4MG C AP 07/27/2016 9:08:27 AM Coumadin 4 mg tablet RxNorm: 917311 1 Tablet(s) PO 3 x week wed and sun 07/27/2016 09/24/2016 In active omeprazole 20 mg cap sean,delayed release RxNorm: 205047 Capsule(s) PO TAKE 1 CAPSULE BY MOUTH ONCE DAILY 07/27/2016 01/22/2017 Inactive venlafaxine ER 75 mg capsule,extended release 24 hr RxNorm: 562471 1 Capsule(s) PO daily 06/29/2016 06/21/2017 Inactive sodium bicarbonate 6 50 mg tablet RxNorm: 060078 TAKE 2 TABLETS BY JAVON TWICE DAILY 06/29/2016 12/23/2016 In active 06/27/2016 9:05:39 AM Coumadin 4 mg tablet RxNorm: 915495 1 Tablet(s) PO 3 x week wed and sun 06/09/2016 06/08/2016 In active Coumadin 4 mg tablet RxNorm: 745125 1 Tablet(s) PO 3 x week wed and sun 06/09/2016 07/26/2016 In active Zetia 10 mg tablet RxNorm: 253287 1 Tablet(s) PO daily 06/09/2016 06/08/2016 Inactive gave 1 month of samples Zetia 10 mg tablet RxNorm: 122464 1 Tablet(s) PO daily 06/09/2016 09/24/2016 Inactive gave 1 month of samples Effexor 75 mg tablet RxNorm: 214494 1 Tablet(s) PO daily 06/08/2016 06/28/2016 Inactive spironolactone 25 mg tablet RxNorm: 784025 1 Tablet(s) PO daily 06/08/2016 05/23/2017 Inactive Synthroid 137 mcg ta blet RxNorm: 045168 1 Tablet(s) PO daily 05/07/2016 11/02/2016 Inactive allopurinol 300 mg t ablet RxNorm: 360144 Tablet(s) TAKE 1 TABL ET BY MOUTH ONCE DAILY. 04/28/2016 10/24/2016 Inactive clonazepam 0.5 mg ta blet RxNorm: 818296 1 Tablet(s) PO BID 04/20/2016 09/15/2016 Inactive Flonase Allergy Reli ef 50 mcg/actuation nasal spray,suspension RxNorm: 4639279 1 [place] NASAL BID 04/02/2016 No Stop Date Active Zithromax Z-Thomas 250 mg tablet RxNorm: 722631 Tablet(s) PO 04/02/2016 08/27/2016 Inactive cetirizine 10 mg tablet RxNorm: 1950005 1 Tablet(s) PO daily 04/02/2016 05/01/2016 Inactive Carafate 1 gram tablet RxNorm: 807157 Tablet(s) TAKE 1 TABLET TWICE A DAY FOR 30 DAYS 03/30/2016 10/25/2016 Inactive Generic For:CARAFATE 1GM 02/08/2015 12:3 6:39 PM Plavix 75 mg tablet RxNorm: 901463 1 Tablet(s) PO daily 03/11/2016 09/06/2016 Inactive sodium bicarbonate 6 50 mg tablet RxNorm: 018058 Tablet(s) 2 Tablet(s) PO BID 02/28/2016 06/26/2016 In active omeprazole 20 mg cap sean,delayed release RxNorm: 877640 Capsule(s) PO TAKE 1 CAPSULE BY MOUTH ONCE DAILY 01/31/2016 07/26/2016 Inactive Fish Oil 1,000 mg ca psule RxNorm: 1 Capsule(s) PO BID 01/14/2016 No Stop Date Active Synthroid 137 mcg ta blet RxNorm: 012230 1 Tablet(s) PO daily 01/14/2016 05/06/2016 Inactive Detrol LA 4 mg capsu le,extended release RxNorm: 496447 TAKE 1 CAPSULE BY JAVON TH ONCE DAILY 12/30/2015 07/26/2016 Inactive Generic For:DETROL LA 4MG C AP 12/30/2015 9:11:01 AM potassium chloride 2 0 mEq/15 mL oral liquid RxNorm: 480599 Milliliter(s) 30 Milliliter(s) (40mEq) PO daily 12/02/2015 03/30/2016 Inactive sodium bicarbonate 6 50 mg tablet RxNorm: 012743 Tablet(s) 2 Tablet(s) PO BID 10/31/2015 02/27/2016 In active Lipitor 40 mg tablet RxNorm: 765655 1 Tablet(s) PO daily 10/09/2015 09/24/2016 Inactive sodium bicarbonate 6 50 mg tablet RxNorm: 820102 2 Tablet(s) PO BID 10/01/2015 10/30/2015 Inactive allopurinol 300 mg t ablet RxNorm: 529135 TAKE 1 TABLET BY MOUT H ONCE DAILY. 10/01/2015 04/27/2016 In active Generic For:ZYLOPRIM 300 MG TABLET 09/19 9:21:15 AM clonazepam 0.5 mg ta blet RxNorm: 582152 1 Tablet(s) PO BID 09/30/2015 04/19/2016 Inactive Coumadin 5 mg tablet RxNorm: 907170 1 Tablet(s) PO daily 09/27/2015 05/31/2017 Inactive Generic For:COUMADIN 5MG TAB N O T I C E PRESCRIPTION PREVIOUSLY AUTHORIZED BY DOCTOR:BOBBY ZULETA Synthroid 125 mcg ta blet RxNorm: 659716 1 Tablet(s) PO daily 09/27/2015 09/26/2015 Inactive Synthroid 125 mcg ta blet RxNorm: 417404 1 Tablet(s) PO daily 09/27/2015 01/13/2016 Inactive Carafate 1 gram tablet RxNorm: 763933 Tablet(s) TAKE 1 TABLET TWICE A DAY FOR 30 DAYS 09/02/2015 03/29/2016 Inactive Generic For:CARAFATE 1GM 02/08/2015 12:3 6:39 PM sodium bicarbonate 6 50 mg tablet RxNorm: 783732 2 Tablet(s) PO BID 09/02/2015 09/30/2015 Inactive Prilosec 20 mg capsu le,delayed release RxNorm: 493898 TAKE 1 CAPSULE BY JAVON TH ONCE DAILY 08/02/2015 01/28/2016 Inactive Generic For:PRILOSEC 20MG 08/02/2015 10:03:09 AM N O T I C E PRESCRIPTION PREVIOUSLY AUTHORIZED BY DOCTOR:BOBBY ZULETA Zyrtec 10 mg capsule RxNorm: 7917965 1 Capsule(s) PO daily 07/15/2015 08/13/2015 Inactive Keflex 500 mg capsule RxNorm: 517172 1 Capsule(s) PO TID 07/15/2015 07/21/2015 Inactive cetirizine 10 mg cap sean RxNorm: 4792040 1 Capsule(s) PO daily 07/15/2015 08/13/2015 Inactive hydrocodone 5 mg-humberto taminophen 325 mg tablet RxNorm: 454884 1-2 Tablet(s) PO Q6 P RN 06/10/2015 11/16/2016 In active sodium bicarbonate 6 50 mg tablet RxNorm: 158465 2 Tablet(s) PO BID 06/03/2015 08/31/2015 Inactive Detrol LA 4 mg capsu le,extended release RxNorm: 204358 TAKE 1 CAPSULE BY JAVON ONCE DAILY 06/03/2015 12/29/2015 Inactive Generic For:DETROL LA 4MG C AP N O T I C E PRESCRIPTION PREVIOUSLY AUTHORIZED BY DOCTOR:BOBBY ZULETA atenolol 50 mg tablet RxNorm: 090641 1 Tablet(s) PO daily TAKE 1 TABLET BY [facility] DAILY 05/07/2015 08/23/2017 Inactive Generic For:TENORMIN 50MG 05/04/2015 9:07:22 AM spironolactone 25 mg tablet RxNorm: 195994 1 Tablet(s) PO daily 05/06/2015 06/07/2016 Inactive venlafaxine ER 75 mg capsule,extended release 24 hr RxNorm: 398173 1 Capsule(s) PO daily 05/04/2015 06/28/2016 Inactive atenolol 50 mg tablet RxNorm: 087536 TAKE 1 TABLET BY MOUTH DAILY 05/04/2015 05/06/2015 Inactive Generic For:TENORMIN 50MG 05/04/2015 9: 07:22 AM Synthroid 150 mcg ta blet RxNorm: 749910 TAKE 1 TABLET BY MOUT H ONCE DAILY. 04/05/2015 09/26/2015 In active Generic For:SYNTHROID 150MCG TAB 2014 4:45:40 PM N O T I C E PRESCRIPTION PREVIOUSLY AUTHORIZED BY DOCTOR:BOBBY ZULETA Effexor 75 mg tablet RxNorm: 893162 1 Tablet(s) PO daily 04/05/2015 07/03/2015 Inactive Coumadin 5 mg tablet RxNorm: 404047 TAKE 1 AND 1/2 TABLETS BY MOUTH ONCE MYRANDA LY 04/04/2015 09/26/2015 In active Generic For:COUMADIN 5MG TAB N O T I C E PRESCRIPTION PREVIOUSLY AUTHORIZED BY DOCTOR:BOBBY ZULETA clonazepam 0.5 mg ta blet RxNorm: 127316 1 Tablet(s) PO BID 03/13/2015 11/05/2015 Inactive sodium bicarbonate 6 50 mg tablet RxNorm: 655071 2 Tablet(s) PO BID 03/08/2015 06/02/2015 Inactive allopurinol 300 mg t ablet RxNorm: 331526 TAKE 1 TABLET BY MOUT H ONCE DAILY. 03/05/2015 09/30/2015 In active N O T I C E PRESCRIPTION PREVIOUSLY A UTHORIZED BY DOCTOR:BOBBY ZULETA Plavix 75 mg tablet RxNorm: 712132 1 Tablet(s) PO daily 02/12/2015 09/09/2015 Inactive clonazepam 0.5 mg ta blet RxNorm: 632563 1 Tablet(s) PO BID 02/11/2015 03/11/2015 Inactive Carafate 1 gram tablet RxNorm: 564995 TAKE 1 TABLET TWICE A DAY FOR 30 DAYS 02/08/2015 02/07/2015 In active Generic For:CARAFATE 1GM 02/08/2015 12:3 6:39 PM Carafate 1 gram tablet RxNorm: 627386 Tablet(s) TAKE 1 TABLET TWICE A DAY FOR 30 DAYS 02/08/2015 09/01/2015 Inactive Generic For:CARAFATE 1GM 02/08/2015 12:3 6:39 PM potassium chloride 2 0 mEq/15 mL oral liquid RxNorm: 829356 30 Milliliter(s) (40m Eq) PO daily 02/05/2015 12/01/2015 Inactive atenolol 50 mg tablet RxNorm: 199290 1 Tablet(s) PO daily 02/04/2015 05/03/2015 Inactive [SAVINGS FOR NON-COVERED DRUGS -- BIN:00 3585, PCN: [id number], Group: XXXXX, ID# XXXXXXX, Questions: . THIS IS NOT INSURANCE.] potassium chloride 2 0 mEq/15 mL oral liquid RxNorm: 362859 30 Milliliter(s) (40m Eq) PO daily 01/08/2015 02/04/2015 Inactive potassium chloride 2 0 mEq/15 mL oral liquid RxNorm: 792667 30 Milliliter(s) (40m Eq) PO daily 12/07/2014 01/07/2015 Inactive atenolol 50 mg tablet RxNorm: 664762 1 Tablet(s) PO daily 11/09/2014 11/08/2014 Inactive atenolol 50 mg tablet RxNorm: 431561 1 Tablet(s) PO daily 11/09/2014 02/03/2015 Inactive [SAVINGS FOR NON-COVERED DRUGS -- BIN:00 3585, PCN: ASPROD1, Group: XXXXX, ID# [id number], Questions: . THIS IS NOT INSURANCE.] Voltaren 1 % topical gel RxNorm: 881158 TOP No St art Date Active verapamil ER (HS) 24 0 mg tablet,extended release 24 hr RxNorm: 039111 1 Tablet(s) PO daily No Start Date Active aspirin 81 mg tablet RxNorm: 501806 1 Tablet(s) PO daily No Start Date Active Zofran 4 mg tablet RxNorm: 170880 1 Tablet(s) PO PRN No Start Date Active B12 1000 mcg RxNorm: 1 Tablet(s) PO daily No Start Date Active magnesium oxide 400 mg capsule RxNorm: 911755 2 Capsule(s) PO BID No Start Date Active Synthroid 150 mcg ta blet RxNorm: 539850 1 Tablet(s) PO daily No Start Date 04/04/2015 Inactive Coumadin 5 mg tablet RxNorm: 318260 1 Tablet(s) PO daily No Start Date 04/03/2015 Inactive cranberry 1,000 mg c apsule RxNorm: 505843 1 Capsule(s) PO daily No Start Date 04/13/2018 Inactive allopurinol 300 mg t ablet RxNorm: 227692 1 Tablet(s) PO daily No Start Date 03/04/2015 Inactive Prilosec 20 mg capsu le,delayed release RxNorm: 749024 1 Capsule(s) PO PRN No Start Date 08/01/2015 Inactive potassium chloride 2 0 mEq/15 mL oral liquid RxNorm: 112117 30 Milliliter(s) (40m Eq) PO daily No Start Date 12/06/2014 Inactive atenolol 50 mg tablet RxNorm: 999089 1 Tablet(s) PO daily No Start Date 08/29/2017 Inactive Lipitor 40 mg tablet RxNorm: 757761 1 Tablet(s) PO daily No Start Date 09/19/2017 Inactive Effexor 75 mg tablet RxNorm: 153428 1 Tablet(s) PO daily No Start Date 04/04/2015 Inactive Carafate 1 gram tablet RxNorm: 888397 1 Tablet(s) PO BID No Start Date 02/07/2015 Inactive clonazepam 0.5 mg ta blet RxNorm: 083199 1 Tablet(s) PO BID No Start Date 02/10/2015 Inactive Plavix 75 mg tablet RxNorm: 057949 1 Tablet(s) PO daily No Start Date 02/11/2015 Inactive sodium bicarbonate 6 50 mg tablet RxNorm: 884503 2 Tablet(s) PO BID No Start Date 09/01/2015 Inactive Lovenox 30 mg/0.3 mL subcutaneous syringe RxNorm: 377505 0.3 Milliliter(s) SQ Q12H No Start Date 03/15/2017 Inactive Fish Oil 1,000 mg ca psule RxNorm: 1 Capsule(s) PO daily No Start Date 01/13/2016 Inactive Detrol LA 4 mg capsu le,extended release RxNorm: 023568 1 Capsule(s) PO daily No Start Date [...] fatigue ICD-10: R53.83 ICD-9: 780.79 08/20/2016 Other sorter upholstery parts (current) drug therapy ICD-10: Z79.899 ICD-9: V58.69 [...] 30.4 pg 06/08/2018 Cbc With Differential Ord2 [place]% 9.4 % 06/08/2018 Cbc With Differential Ord2 [...] 1.20 K/ul 06/08/2018 Cbc With Differential Ord2 [place] ABS# 0.5 K/ul 06/08/2018 Cbc With Differential Ord2 Eos ABS# 0.1 K/ul 06/08/2018 Cbc With Differential Ord2 Baso ABS# 0.1 K/ul 06/08/2018 C-Reactive Protein Qnt Crqnt CRP 0.1 mg/dl 06/08/2018 Pt [id number] PT 16.8 seconds 05/10/2018 Pt Joy7298 INR 1.4 05/10/2018 Pt Zhi0987 Low Intensity - 1.5-2.0 05/10/2018 Pt Eoy9329 Mod intensity - 2.0-3.0 05/10/2018 Pt Vei8814 Hi intensity - 3.0-4.0 05/10/2018 Pt Wdm9582 PT 16.7 seconds 05/04/2018 Pt Siw5190 INR 1.4 05/04/2018 Pt Ptr0779 Low Intensity - 1.5-2.0 05/04/2018 Pt Hmy8722 Mod intensity - 2.0-3.0 05/04/2018 Pt Dto9697 Hi intensity - 3.0-4.0 05/04/2018 Free T4 Vfs960 FREE T4 1.09 ng/dL 04/14/2018 Tsh Ord6 TSH (3rd IS) 2.36 uIU/mL 04/14/2018 Pt Ciw3141 PT 20.3 seconds 04/14/2018 Pt Tur2003 INR 1.8 04/14/2018 Pt Qoa4764 Low Intensity - 1.5-2.0 04/14/2018 Pt Wjm0450 Mod intensity - 2.0-3.0 04/14/2018 Pt Udo0447 Hi intensity - 3.0-4.0 04/14/2018 Lipid Ord30 CHOL 149 mg/dL 04/14/2018 Lipid Ord30 HDL 49.0 mg/dl 04/14/2018 Lipid Ord30 TRIG 161 mg/dL 04/14/2018 Lipid Ord30 LDL 68 mg/dL 04/14/2018 Lipid Ord30 C/HDL 3.0 Ratio 04/14/2018 %Hba1C Wqb969 % HbA1c 44453-9 5.9 % 04/14/2018 %Hba1C Oof232 Gluc Ave 123 mg/dL 04/14/2018 Comp Metabolic Tkq796 NA 140 mEq/L 04/14/2018 Comp Metabolic Dbx394 K 4.1 mEq/L 04/14/2018 Comp Metabolic Xpx418 CL 105 mEq/L 04/14/2018 Comp Metabolic Kij927 CO2 28.0 mEq/L 04/14/2018 Comp Metabolic Nji715 AN ION GAP 11 04/14/2018 Comp Metabolic Pyy857 GL UCOSE 112 mg/dL 04/14/2018 Comp Metabolic Nfj288 Cr eat 1.0 mg/dL 04/14/2018 Comp Metabolic Bky846 eG FR 58 ml/min/1.73m2 04/14 Comp Metabolic Lhv433 BUN 20 mg/dL 04/14/2018 Comp Metabolic Mua026 B/ C Ratio 20.2 Ratio 04/14/2018 Comp Metabolic Qgw317 CA LCIUM 10.0 mg/dL 04/14/2018 Comp Metabolic Som300 AL K PHOS 51 U/L 04/14/2018 Comp Metabolic Xze360 T(SGOT) 24 U/L 04/14/2018 Comp Metabolic Msv218 AL T(SGPT) 21 U/L 04/14/2018 Comp Metabolic Ali792 BI LI T 0.8 mg/dL 04/14/2018 Comp Metabolic Gpn862 AL BUMIN 4.2 g/dL 04/14/2018 Comp Metabolic Mnw376 TP RO 7.1 g/dL 04/14/2018 Comp Metabolic Zza154 GL OB 2.9 g/dL 04/14/2018 Comp Metabolic Mdm655 A/ G Ratio 1.5 Ratio 04/14/2018 Comp Metabolic Xwt021 Os mo 283 mOsmo 04/14/2018 Cbc With [...] 30.7 pg 04/14/2018 Cbc With Differential Ord2 [place]% 10.6 % 04/14/2018 Cbc With Differential Ord2 [...] 1.18 K/ul 04/14/2018 Cbc With Differential Ord2 [place] ABS# 0.5 K/ul 04/14/2018 Cbc With Differential Ord2 Eos ABS# 0.2 K/ul 04/14/2018 Cbc With Differential Ord2 Baso ABS# 0.1 K/ul 04/14/2018 Pt Fnd6487 PT 29.3 seconds 02/11/2018 Pt Xjs1428 INR 2.8 02/11/2018 Pt Bbq6560 Low Intensity - 1.5-2.0 02/11/2018 Pt Rde1705 Mod intensity - 2.0-3.0 02/11/2018 Pt Tjk1468 Hi intensity - 3.0-4.0 02/11/2018 Comp Metabolic Wai101 NA 141 mEq/L 01/05/2018 Comp Metabolic Zqm521 K 3.7 mEq/L 01/05/2018 Comp Metabolic Rjo173 CL 102 mEq/L 01/05/2018 Comp Metabolic Eku969 CO2 29.0 mEq/L 01/05/2018 Comp Metabolic Pdh068 AN ION GAP 14 01/05/2018 Comp Metabolic Wkg900 GL UCOSE 136 mg/dL 01/05/2018 Comp Metabolic Peq719 Cr eat 1.0 mg/dL 01/05/2018 Comp Metabolic Nve265 eG FR 61 ml/min/1.73m2 01/05 Comp Metabolic Gbf959 BUN 22 mg/dL 01/05/2018 Comp Metabolic Xvz525 B/ C Ratio 22.9 Ratio 01/05/2018 Comp Metabolic Idp454 CA LCIUM 9.7 mg/dL 01/05/2018 Comp Metabolic Xuh314 AL K PHOS 57 U/L 01/05/2018 Comp Metabolic Idb115 T(SGOT) 21 U/L 01/05/2018 Comp Metabolic Pig153 AL T(SGPT) 19 U/L 01/05/2018 Comp Metabolic Kpq908 BI LI T 0.9 mg/dL 01/05/2018 Comp Metabolic Wfe218 AL BUMIN 4.1 g/dL 01/05/2018 Comp Metabolic Ykd478 TP RO 7.1 g/dL 01/05/2018 Comp Metabolic Zpm666 GL OB 3.0 g/dL 01/05/2018 Comp Metabolic Vjo193 A/ G Ratio 1.4 Ratio 01/05/2018 Comp Metabolic Tmu674 Os mo 287 mOsmo 01/05/2018 Free T4 Kfu931 FREE T4 1.05 ng/dL 01/05/2018 %Hba1C Cib523 % HbA1c 02610-6 6.0 % 01/05/2018 %Hba1C Jin110 Gluc Ave 126 mg/dL 01/05/2018 Cbc With [...] 30.6 pg 01/05/2018 Cbc With Differential Ord2 [place]% 10.5 % 01/05/2018 Cbc With Differential Ord2 [...] 1.27 K/ul 01/05/2018 Cbc With Differential Ord2 [place] ABS# 0.5 K/ul 01/05/2018 Cbc With Differential Ord2 Eos ABS# 0.2 K/ul 01/05/2018 Cbc With Differential Ord2 Baso ABS# 0.1 K/ul 01/05/2018 Pt Wly7925 PT 20.7 seconds 01/05/2018 Pt Osn1681 INR 1.8 01/05/2018 Pt Bya7011 Low Intensity - 1.5-2.0 01/05/2018 Pt Tym6946 Mod intensity - 2.0-3.0 01/05/2018 Pt Iep9935 Hi intensity - 3.0-4.0 01/05/2018 Tsh Ord6 TSH (3rd IS) 2.34 uIU/mL 01/05/2018 Lipid Ord30 CHOL 156 mg/dL 01/05/2018 Lipid Ord30 HDL 48.0 mg/dl 01/05/2018 Lipid Ord30 TRIG 207 mg/dL 01/05/2018 Lipid Ord30 LDL 67 mg/dL 01/05/2018 Lipid Ord30 C/HDL 3.3 Ratio 01/05/2018 Pt Qxd1962 PT 28.3 seconds 11/26/2017 Pt Lsb0182 INR 2.6 11/26/2017 Pt Qvp0784 Low Intensity - 1.5-2.0 11/26/2017 Pt Val5229 Mod intensity - 2.0-3.0 11/26/2017 Pt Owv1435 Hi intensity - 3.0-4.0 11/26/2017 Pt Jov0180 PT 36.5 seconds 11/19/2017 Pt Gnm1270 INR 3.6 11/19/2017 Pt Vxz0755 Low Intensity - 1.5-2.0 11/19/2017 Pt Xap4990 Mod intensity - 2.0-3.0 11/19/2017 Pt Gdu7262 Hi intensity - 3.0-4.0 11/19/2017 Pt Xnv1491 PT 22.9 seconds 10/15/2017 Pt Udk7693 INR 2.0 10/15/2017 Pt Duf8486 Low Intensity - 1.5-2.0 10/15/2017 Pt Aoz1124 Mod intensity - 2.0-3.0 10/15/2017 Pt Sdi4273 Hi intensity - 3.0-4.0 10/15/2017 Pt Ngo1958 PT 25.9 seconds 10/01/2017 Pt Yri5497 INR 2.4 10/01/2017 Pt Wjv0241 Low Intensity - 1.5-2.0 10/01/2017 Pt Lbn2347 Mod intensity - 2.0-3.0 10/01/2017 Pt Nin5759 Hi intensity - 3.0-4.0 10/01/2017 Pt Aui2855 PT 20.6 seconds 09/24/2017 Pt Aji3960 INR 1.8 09/24/2017 Pt Mvf5043 Low Intensity - 1.5-2.0 09/24/2017 Pt Qdx5545 Mod intensity - 2.0-3.0 09/24/2017 Pt Dfq7832 Hi intensity - 3.0-4.0 09/24/2017 Pt Ypi6096 PT 21.0 seconds 09/15/2017 Pt Efa3453 INR 1.8 09/15/2017 Pt Emd1856 Low Intensity - 1.5-2.0 09/15/2017 Pt Wja7808 Mod intensity - 2.0-3.0 09/15/2017 Pt Qhi8590 Hi intensity - 3.0-4.0 09/15/2017 Pt Jea2966 PT 19.0 seconds 09/03/2017 Pt Ynt1444 INR 1.6 09/03/2017 Pt Wws4452 Low Intensity - 1.5-2.0 09/03/2017 Pt Ekw2110 Mod intensity - 2.0-3.0 09/03/2017 Pt Dwl3206 Hi intensity - 3.0-4.0 09/03/2017 Pt Pji4333 PT 17.6 seconds 08/23/2017 Pt Iyb2285 INR 1.5 08/23/2017 Pt Cpn5583 Low Intensity - 1.5-2.0 08/23/2017 Pt Nqj6401 Mod intensity - 2.0-3.0 08/23/2017 Pt Vvq2786 Hi intensity - 3.0-4.0 08/23/2017 Pt Qwt7664 PT 12.7 seconds 08/20/2017 Pt Kaw7323 INR 1.0 08/20/2017 Pt Akd4976 Low Intensity - 1.5-2.0 08/20/2017 Pt Dxb4066 Mod intensity - 2.0-3.0 08/20/2017 Pt Eyf8128 Hi intensity - 3.0-4.0 08/20/2017 Pt Cqk6194 PT 12.9 seconds 08/17/2017 Pt Lvv1921 INR 1.0 08/17/2017 Pt Ubd5359 Low Intensity - 1.5-2.0 08/17/2017 Pt Tnj1312 Mod intensity - 2.0-3.0 08/17/2017 Pt Odw1088 Hi intensity - 3.0-4.0 08/17/2017 Pt Osz2703 PT 18.5 seconds 08/10/2017 Pt Ewy3637 INR 1.6 08/10/2017 Pt Yrh5052 Low Intensity - 1.5-2.0 08/10/2017 Pt Vbv6493 Mod intensity - 2.0-3.0 08/10/2017 Pt Det0874 Hi intensity - 3.0-4.0 08/10/2017 Tsh Ord6 [...] 14.7 % 05/27/2017 Cbc With Differential Ord2 [place]% 8.1 % 05/27/2017 Cbc With Differential Ord2 [...] 1.11 K/ul 05/27/2017 Cbc With Differential Ord2 [place] ABS# 0.6 K/ul 05/27/2017 Cbc With Differential Ord2 Eos ABS# 0.2 K/ul 05/27/2017 Cbc With Differential Ord2 Baso ABS# 0.1 K/ul 05/27/2017 Pt Pqh6870 PT 28.2 seconds 05/27/2017 Pt Ggy0096 INR 2.6 05/27/2017 Pt Zjb0962 Low Intensity - 1.5-2.0 05/27/2017 Pt Odk1891 Mod intensity - 2.0-3.0 05/27/2017 Pt Kmo9229 Hi intensity - 3.0-4.0 05/27/2017 Lipid Ord30 CHOL 167 mg/dL 05/27/2017 Lipid Ord30 HDL 49.0 mg/dl 05/27/2017 Lipid Ord30 TRIG 347 mg/dL 05/27/2017 Lipid Ord30 LDL 49 mg/dL 05/27/2017 Lipid Ord30 C/HDL 3.4 Ratio 05/27/2017 Magnesium Ord90 Mag 1.4 mg/dL 05/27/2017 %Hba1C Dsh364 % HbA1c 29522-7 5.9 % 05/27/2017 %Hba1C Vmn893 Gluc Ave 123 mg/dL 05/27/2017 Comp Metabolic Avl428 NA 138 mEq/L 05/27/2017 Comp Metabolic Szt640 K 4.1 mEq/L 05/27/2017 Comp Metabolic Afz204 CL 101 mEq/L 05/27/2017 Comp Metabolic Pjn165 CO2 31.0 mEq/L 05/27/2017 Comp Metabolic Dke112 AN ION GAP 10 05/27/2017 Comp Metabolic Wnv006 GL UCOSE 117 mg/dL 05/27/2017 Comp Metabolic Lbw356 Cr eat 0.9 mg/dL 05/27/2017 Comp Metabolic Amy873 eG FR 62 ml/min/1.73m2 05/27 Comp Metabolic Jof553 BUN 25 mg/dL 05/27/2017 Comp Metabolic Eco902 B/ C Ratio 26.6 Ratio 05/27/2017 Comp Metabolic Nsu344 CA LCIUM 9.5 mg/dL 05/27/2017 Comp Metabolic Gjx908 AL K PHOS 73 U/L 05/27/2017 Comp Metabolic Eyz641 T(SGOT) 18 U/L 05/27/2017 Comp Metabolic Arv076 AL T(SGPT) 12 U/L 05/27/2017 Comp Metabolic Dei480 BI LI T 0.5 mg/dL 05/27/2017 Comp Metabolic Hwb458 AL BUMIN 4.1 g/dL 05/27/2017 Comp Metabolic Apq081 TP RO 7.1 g/dL 05/27/2017 Comp Metabolic Xti704 GL OB 3.0 g/dL 05/27/2017 Comp Metabolic Uje043 A/ G Ratio 1.3 Ratio 05/27/2017 Comp Metabolic Cof215 Os mo 281 mOsmo 05/27/2017 Free T4 Vgg293 FREE T4 0.91 ng/dL 05/27/2017 Pt Hki8110 PT 29.2 seconds 04/16/2017 Pt Eno6588 INR 2.7 04/16/2017 Pt Hew6417 Low Intensity - 1.5-2.0 04/16/2017 Pt Sfa8620 Mod intensity - 2.0-3.0 04/16/2017 Pt Xkn0664 Hi intensity - 3.0-4.0 04/16/2017 Pt Hli2217 PT 30.7 seconds 03/31/2017 Pt Fzd1884 INR 2.9 03/31/2017 Pt Jeg0376 Low Intensity - 1.5-2.0 03/31/2017 Pt Gwn4891 Mod intensity - 2.0-3.0 03/31/2017 Pt Dag2702 Hi intensity - 3.0-4.0 03/31/2017 Pt Dbm2981 PT 21.3 seconds 03/26/2017 Pt Bnz5168 INR 1.9 03/26/2017 Pt Okd8879 Low Intensity - 1.5-2.0 03/26/2017 Pt Djf6748 Mod intensity - 2.0-3.0 03/26/2017 Pt Osx0842 Hi intensity - 3.0-4.0 03/26/2017 Pt Yyy7506 PT 19.8 seconds 03/22/2017 Pt Yju5790 INR 1.7 03/22/2017 Pt Xpp9655 Low Intensity - 1.5-2.0 03/22/2017 Pt Hyi1197 Mod intensity - 2.0-3.0 03/22/2017 Pt Qxc0458 Hi intensity - 3.0-4.0 03/22/2017 Pt Gtw1079 PT 15.6 seconds 03/19/2017 Pt Jvs5773 INR 1.3 03/19/2017 Pt Ejo8093 Low Intensity - 1.5-2.0 03/19/2017 Pt Bqq0060 Mod intensity - 2.0-3.0 03/19/2017 Pt Rka8087 Hi intensity - 3.0-4.0 03/19/2017 Pt Phc1271 PT 13.7 seconds 03/15/2017 Pt Mvx9291 INR 1.1 03/15/2017 Pt Gqj0701 Low Intensity - 1.5-2.0 03/15/2017 Pt Ahf1351 Mod intensity - 2.0-3.0 03/15/2017 Pt Tih8993 Hi intensity - 3.0-4.0 03/15/2017 Pt Nfe1013 PT 25.8 seconds 01/28/2017 Pt Bdo5237 INR 2.4 01/28/2017 Pt Zxh7893 Low Intensity - 1.5-2.0 01/28/2017 Pt Njm0920 Mod intensity - 2.0-3.0 01/28/2017 Pt Voj0570 Hi intensity - 3.0-4.0 01/28/2017 %Hba1C Ite334 % HbA1c 59209-1 6.4 % 10/23/2016 %Hba1C Khz325 Gluc Ave 137 mg/dL 10/23/2016 Comp Metabolic Pkf372 NA 138 mEq/L 10/23/2016 Comp Metabolic Ojr069 K 3.4 mEq/L 10/23/2016 Comp Metabolic Mqh248 CL 100 mEq/L 10/23/2016 Comp Metabolic Xrd461 CO2 30.0 mEq/L 10/23/2016 Comp Metabolic Gzj945 AN ION GAP 11 10/23/2016 Comp Metabolic Knb267 GL UCOSE 139 mg/dL 10/23/2016 Comp Metabolic Eqm357 Cr eat 0.9 mg/dL 10/23/2016 Comp Metabolic Ylk516 eG FR 62 ml/min/1.73m2 10/23 Comp Metabolic Atv523 BUN 22 mg/dL 10/23/2016 Comp Metabolic Ckh792 B/ C Ratio 23.4 Ratio 10/23/2016 Comp Metabolic Rqe166 CA LCIUM 8.7 mg/dL 10/23/2016 Comp Metabolic Euk282 AL K PHOS 66 U/L 10/23/2016 Comp Metabolic Pth189 T(SGOT) 20 U/L 10/23/2016 Comp Metabolic Kss397 AL T(SGPT) 10 U/L 10/23/2016 Comp Metabolic Qzn045 BI LI T 0.5 mg/dL 10/23/2016 Comp Metabolic Dsp140 AL BUMIN 3.5 g/dL 10/23/2016 Comp Metabolic Hdw400 TP RO 6.3 g/dL 10/23/2016 Comp Metabolic Dhx108 GL OB 2.8 g/dL 10/23/2016 Comp Metabolic Ees602 A/ G Ratio 1.3 Ratio 10/23/2016 Comp Metabolic Kpc160 Os mo 281 mOsmo 10/23/2016 Pt Gnf9075 PT 26.8 seconds 10/23/2016 Pt Okc7741 INR 2.7 10/23/2016 Pt Wrz7352 Low Intensity - 1.5-2.0 10/23/2016 Pt Ykd7489 Mod intensity - 2.0-3.0 10/23/2016 Pt Rto5718 Hi intensity - 3.0-4.0 10/23/2016 Pt Fep8643 PT 28.3 seconds 09/25/2016 Pt Alg8112 INR 2.8 09/25/2016 Pt Fdv1173 Low Intensity - 1.5-2.0 09/25/2016 Pt Qsa3793 Mod intensity - 2.0-3.0 09/25/2016 Pt Qxc3680 Hi intensity - 3.0-4.0 09/25/2016 Metabolic Ord15 [...] Metabolic Ord15 CALCIUM 8.8 mg/dL 09/25/2016 Pt Ufk1612 PT 30.6 seconds 09/11/2016 Pt Xic8646 INR 3.2 09/11/2016 Pt Liq6973 Low Intensity - 1.5-2.0 09/11/2016 Pt Hgf9794 Mod intensity - 2.0-3.0 09/11/2016 Pt Bqu8297 Hi intensity - 3.0-4.0 09/11/2016 Comp Metabolic Zff563 NA 138 mEq/L 09/11/2016 Comp Metabolic Dvb263 K 4.4 mEq/L 09/11/2016 Comp Metabolic Vlw659 CL 103 mEq/L 09/11/2016 Comp Metabolic Toa460 CO2 31.0 mEq/L 09/11/2016 Comp Metabolic Bkc715 AN ION GAP 8 09/11/2016 Comp Metabolic Vys134 GL UCOSE 146 mg/dL 09/11/2016 Comp Metabolic Wbt169 Cr eat 1.0 mg/dL 09/11/2016 Comp Metabolic Pre118 eG FR 60 ml/min/1.73m2 09/11 Comp Metabolic Ipm805 BUN 16 mg/dL 09/11/2016 Comp Metabolic Ncy786 B/ C Ratio 16.5 Ratio 09/11/2016 Comp Metabolic Epw190 CA LCIUM 8.7 mg/dL 09/11/2016 Comp Metabolic Mjy451 AL K PHOS 52 U/L 09/11/2016 Comp Metabolic Ink645 T(SGOT) 19 U/L 09/11/2016 Comp Metabolic Zfl588 AL T(SGPT) 11 U/L 09/11/2016 Comp Metabolic Eux366 BI LI T 0.7 mg/dL 09/11/2016 Comp Metabolic Fab360 AL BUMIN 3.3 g/dL 09/11/2016 Comp Metabolic Ovy421 TP RO 5.8 g/dL 09/11/2016 Comp Metabolic Lfx107 GL OB 2.5 g/dL 09/11/2016 Comp Metabolic Oxe092 A/ G Ratio 1.3 Ratio 09/11/2016 Comp Metabolic Uwj321 Os mo 280 mOsmo 09/11/2016 C-Reactive Protein Qnt Crqnt CRP 0.1 mg/dl 08/21/2016 Comp Metabolic Rws572 NA 139 mEq/L 08/21/2016 Comp Metabolic Bjy193 K 4.1 mEq/L 08/21/2016 Comp Metabolic Yzd652 CL 102 mEq/L 08/21/2016 Comp Metabolic Psy380 CO2 30.0 mEq/L 08/21/2016 Comp Metabolic Zwo638 AN ION GAP 11 08/21/2016 Comp Metabolic Fme949 GL UCOSE 148 mg/dL 08/21/2016 Comp Metabolic Egf356 Cr eat 1.0 mg/dL 08/21/2016 Comp Metabolic Gms733 eG FR 55 ml/min/1.73m2 08/21 Comp Metabolic Ljz178 BUN 21 mg/dL 08/21/2016 Comp Metabolic Rzc229 B/ C Ratio 20.2 Ratio 08/21/2016 Comp Metabolic Dpq145 CA LCIUM 9.4 mg/dL 08/21/2016 Comp Metabolic Duy910 AL K PHOS 63 U/L 08/21/2016 Comp Metabolic Jfw858 T(SGOT) 23 U/L 08/21/2016 Comp Metabolic Wva154 AL T(SGPT) 16 U/L 08/21/2016 Comp Metabolic Msx379 BI LI T 0.6 mg/dL 08/21/2016 Comp Metabolic Nrl201 AL BUMIN 3.9 g/dL 08/21/2016 Comp Metabolic Auc162 TP RO 6.8 g/dL 08/21/2016 Comp Metabolic Yaw471 GL OB 2.9 g/dL 08/21/2016 Comp Metabolic Tua097 A/ G Ratio 1.4 Ratio 08/21/2016 Comp Metabolic Vww099 Os mo 283 mOsmo 08/21/2016 Sed Rate Ord21 ESR 16 mm/hr 08/21/2016 Pt Yuw1384 PT 27.2 seconds 08/21/2016 Pt Mms5766 INR 2.7 08/21/2016 Pt Zhh5629 Low Intensity - 1.5-2.0 08/21/2016 Pt Urr7339 Mod intensity - 2.0-3.0 08/21/2016 Pt Ung3750 Hi intensity - 3.0-4.0 08/21/2016 Magnesium Ord90 Mag 1.9 mg/dL 08/21/2016 Pt Jms2168 PT 25.9 seconds 06/17/2016 Pt Jfe9412 INR 2.5 06/17/2016 Pt Ntu0451 Low Intensity - 1.5-2.0 06/17/2016 Pt Yox4289 Mod intensity - 2.0-3.0 06/17/2016 Pt Hok1987 Hi intensity - 3.0-4.0 06/17/2016 Tsh Ord6 hTSH II 2.13 uIU/mL 06/08/2016 Free T4 Tuu283 FREE T4 0.79 ng/dL 06/08/2016 Cbc With [...] 80.8 fl 06/08/2016 Cbc With Differential Ord2 [place]% 12.0 % 06/08/2016 Cbc With Differential Ord2 [...] 1.40 K/ul 06/08/2016 Cbc With Differential Ord2 [place] ABS# 0.7 K/ul 06/08/2016 Cbc With Differential Ord2 Eos ABS# 0.3 K/ul 06/08/2016 Cbc With Differential Ord2 Baso ABS# 0.1 K/ul 06/08/2016 %Hba1C Tvi888 % HbA1c 35906-5 6.2 % 06/08/2016 %Hba1C Nfx172 Gluc Ave 131 mg/dL 06/08/2016 Comp Metabolic Rth837 NA 138 mEq/L 06/08/2016 Comp Metabolic Ulc688 K 3.9 mEq/L 06/08/2016 Comp Metabolic Rfz614 CL 105 mEq/L 06/08/2016 Comp Metabolic Fey942 CO2 27.0 mEq/L 06/08/2016 Comp Metabolic Jrt807 AN ION GAP 10 06/08/2016 Comp Metabolic Ohf994 GL UCOSE 127 mg/dL 06/08/2016 Comp Metabolic Qwz080 Cr eat 1.0 mg/dL 06/08/2016 Comp Metabolic Mnp723 eG FR 59 ml/min/1.73m2 06/08 Comp Metabolic Cvy811 BUN 19 mg/dL 06/08/2016 Comp Metabolic Hsg684 B/ C Ratio 19.4 Ratio 06/08/2016 Comp Metabolic Sox458 CA LCIUM 9.2 mg/dL 06/08/2016 Comp Metabolic Xxu211 AL K PHOS 77 U/L 06/08/2016 Comp Metabolic Vkt136 T(SGOT) 19 U/L 06/08/2016 Comp Metabolic Hwt565 AL T(SGPT) 13 U/L 06/08/2016 Comp Metabolic Gkc580 BI LI T 0.5 mg/dL 06/08/2016 Comp Metabolic Ekd904 AL BUMIN 3.8 g/dL 06/08/2016 Comp Metabolic Cnd555 TP RO 6.6 g/dL 06/08/2016 Comp Metabolic Wvw813 GL OB 2.8 g/dL 06/08/2016 Comp Metabolic Dnn718 A/ G Ratio 1.4 Ratio 06/08/2016 Comp Metabolic Ktp549 Os mo 280 mOsmo 06/08/2016 Pt Kne3438 PT 36.1 seconds 06/08/2016 Pt Ske9062 INR 3.9 06/08/2016 Pt Rhu8956 Low Intensity - 1.5-2.0 06/08/2016 Pt Wbe4085 Mod intensity - 2.0-3.0 06/08/2016 Pt Ntu4033 Hi intensity - 3.0-4.0 06/08/2016 Lipid Ord30 CHOL 149 mg/dL 06/08/2016 Lipid Ord30 HDL 46.0 mg/dl 06/08/2016 Lipid Ord30 TRIG 279 mg/dL 06/08/2016 Lipid Ord30 LDL 47 mg/dL 06/08/2016 Lipid Ord30 C/HDL 3.2 Ratio 06/08/2016 Pt Qfw0374 PT 30.9 seconds 02/12/2016 Pt Tyx0038 INR 3.2 02/12/2016 Pt Lbb2130 Low Intensity - 1.5-2.0 02/12/2016 Pt Spz4954 Mod intensity - 2.0-3.0 02/12/2016 Pt Sdq6527 Hi intensity - 3.0-4.0 02/12/2016 Free T4 Ahz894 FREE T4 1.24 ng/dL 09/27/2015 %Hba1C Rim262 % HbA1c 11660-5 6.4 % 09/27/2015 %Hba1C Pvj376 Gluc Ave 137 mg/dL 09/27/2015 Tsh Ord6 hTSH II 0.37 uIU/mL 09/27/2015 Pt Srp0094 PT 26.2 seconds 09/27/2015 Pt Jil7865 INR 2.5 09/27/2015 Pt Goj1179 Low Intensity - 1.5-2.0 09/27/2015 Pt Thl2259 Mod intensity - 2.0-3.0 09/27/2015 Pt Qoa4584 Hi intensity - 3.0-4.0 09/27/2015 Pt Ecd1773 PT 27.6 seconds 2015 Pt Lhb6060 INR 2.7 2015 Pt Mso3689 Low Intensity - 1.5-2.0 2015 Pt Tdu3203 Mod intensity - 2.0-3.0 2015 Pt Zki6338 Hi intensity - 3.0-4.0 2015 %Hba1C Vqi631 % HbA1c 23105-9 6.1 % 06/11/2015 %Hba1C Ojz159 Gluc Ave 128 mg/dL 06/11/2015 Cbc With [...] Ord2 RDW 15.8 % 06/10/2015 Comp Metabolic Mbq097 NA 139 mEq/L 06/10/2015 Comp Metabolic Eky817 K 4.1 mEq/L 06/10/2015 Comp Metabolic Fvn600 CL 105 mEq/L 06/10/2015 Comp Metabolic Iwb111 CO2 27.0 mEq/L 06/10/2015 Comp Metabolic Vow014 AN ION GAP 11 06/10/2015 Comp Metabolic Aia399 GL UCOSE 127 mg/dL 06/10/2015 Comp Metabolic Mrm507 Cr eat 1.0 mg/dL 06/10/2015 Comp Metabolic Qkp925 eG FR 59 ml/min/1.73m2 06/10 Comp Metabolic Lwk474 BUN 21 mg/dL 06/10/2015 Comp Metabolic Xzj177 B/ C Ratio 21.2 Ratio 06/10/2015 Comp Metabolic Ujo189 CA LCIUM 9.2 mg/dL 06/10/2015 Comp Metabolic Riy213 AL K PHOS 87 U/L 06/10/2015 Comp Metabolic Vrx339 T(SGOT) 20 U/L 06/10/2015 Comp Metabolic Cul936 AL T(SGPT) 17 U/L 06/10/2015 Comp Metabolic Pnx644 BI LI T 0.4 mg/dL 06/10/2015 Comp Metabolic Exb011 AL BUMIN 4.1 g/dL 06/10/2015 Comp Metabolic Szo395 TP RO 7.2 g/dL 06/10/2015 Comp Metabolic Quk751 GL OB 3.1 g/dL 06/10/2015 Comp Metabolic Ajq528 A/ G Ratio 1.3 Ratio 06/10/2015 Comp Metabolic Ubg373 Os mo 282 mOsmo 06/10/2015 Tsh Ord6 hTSH II 0.86 uIU/mL 06/10/2015 Lipid Ord30 CHOL 161 mg/dL 06/10/2015 Lipid Ord30 HDL 49.0 mg/dl 06/10/2015 Lipid Ord30 TRIG 208 mg/dL 06/10/2015 Lipid Ord30 LDL 70 mg/dL 06/10/2015 Lipid Ord30 C/HDL 3.3 Ratio 06/10/2015 Pt Zid5600 PT 25.0 seconds 04/09/2015 Pt Rax8958 INR 2.4 04/09/2015 Pt Fip4814 Low Intensity - 1.5-2.0 04/09/2015 Pt Nps4005 Mod intensity - 2.0-3.0 04/09/2015 Pt Wvw9760 Hi intensity - 3.0-4.0 04/09/2015 Free T4 Bbt199 FREE T4 1.05 ng/dL 01/22/2015 Pt Ydg9454 PT 27.2 seconds 01/22/2015 Pt Jbz9040 INR 2.6 01/22/2015 Pt Utt8332 Low Intensity - 1.5-2.0 01/22/2015 Pt Vfj3950 Mod intensity - 2.0-3.0 01/22/2015 Pt Biv0949 Hi intensity - 3.0-4.0 01/22/2015 Cbc With [...] Differential Ord2 RDW 15.2 % 01/22/2015 B12 Ofy102 B12 402.00 pg/ml 01/22/2015 Tsh Ord6 hTSH II 0.65 uIU/mL 01/22/2015 Lipid Ord30 CHOL 166 mg/dL 01/22/2015 Lipid Ord30 HDL 48.0 mg/dl 01/22/2015 Lipid Ord30 TRIG 264 mg/dL 01/22/2015 Lipid Ord30 LDL 65 mg/dL 01/22/2015 Lipid Ord30 C/HDL 3.5 Ratio 01/22/2015 Comp Metabolic Agh539 NA 138 mEq/L 01/22/2015 Comp Metabolic Qnx344 K 4.1 mEq/L 01/22/2015 Comp Metabolic Vfb741 CL 104 mEq/L 01/22/2015 Comp Metabolic Qdb846 CO2 29.0 mEq/L 01/22/2015 Comp Metabolic Qbu492 AN ION GAP 9 01/22/2015 Comp Metabolic Mhb929 GL UCOSE 106 mg/dL 01/22/2015 Comp Metabolic Gdw889 Cr eat 0.9 mg/dL 01/22/2015 Comp Metabolic Pcs076 eG FR 63 ml/min/1.73m2 01/22 Comp Metabolic Lry993 BUN 21 mg/dL 01/22/2015 Comp Metabolic Yvv787 B/ C Ratio 22.3 Ratio 01/22/2015 Comp Metabolic Ykj331 CA LCIUM 9.4 mg/dL 01/22/2015 Comp Metabolic Nmq375 AL K PHOS 83 U/L 01/22/2015 Comp Metabolic Sgx758 T(SGOT) 23 U/L 01/22/2015 Comp Metabolic Jwc914 AL T(SGPT) 18 U/L 01/22/2015 Comp Metabolic Bob885 BI LI T 0.8 mg/dL 01/22/2015 Comp Metabolic Ywc128 AL BUMIN 4.2 g/dL 01/22/2015 Comp Metabolic Grm009 TP RO 7.3 g/dL 01/22/2015 Comp Metabolic Eco105 GL OB 3.1 g/dL 01/22/2015 Comp Metabolic Dln695 A/ G Ratio 1.4 Ratio 01/22/2015 Comp Metabolic Inc454 Os mo 279 mOsmo 01/22/2015 Review of [...] Date URINALYSIS NONAUTO W /O SCOPE CPT-4: 97927 03/05/2017 Vital Signs Date Vital 04/14/2018 Blood Pressure 1: 116/78 Code: 8480-6 BMI: 41.6 Code: 04947-7 Heart Rate 1: 72 bpm Height: 5'1" SpO2: 98% Weight: 220 lbs 01/18/2018 Blood Pressure 1: 132/74 Code: 8480-6 BMI: 43.5 Code: 30428-2 Heart Rate 1: 70 bpm Height: 5'1" SpO2: 97% Weight: 230 lbs 01/04/2018 Blood Pressure 1: 134/76 Code: 8480-6 BMI: 42.7 Code: 07367-8 Heart Rate 1: 83 bpm Height: 5'1" SpO2: 98% Weight: 226 lbs 09/23/2017 Blood Pressure 1: 124/76 Code: 8480-6 BMI: 42.3 Code: 63346-9 Heart Rate 1: 94 bpm Height: 5'1" SpO2: 96% Weight: 224 lbs 05/27/2017 Blood Pressure 1: 146/78 Code: 8480-6 BMI: 41.4 Code: 61667-6 Heart Rate 1: 85 bpm Height: 5'1" SpO2: 98% Weight: 219 lbs 02/24/2017 Blood Pressure 1: 138/66 Code: 8480-6 BMI: 41.4 Code: 46077-1 Heart Rate 1: 78 bpm Height: 5'1" SpO2: 97% Weight: 219 lbs 11/02/2016 Blood Pressure 1: 144/72 Code: 8480-6 BMI: 46.1 Code: 78268-1 Heart Rate 1: 78 bpm Height: 5'1" SpO2: 98% Weight: 244 lbs 09/30/2016 Blood Pressure 1: 130/76 Code: 8480-6 BMI: 45.0 Code: 69804-8 Heart Rate 1: 86 bpm Height: 5'1" SpO2: 98% Weight: 238 lbs 09/10/2016 Blood Pressure 1: 136/68 Code: 8480-6 BMI: 46.3 Code: 04247-4 Heart Rate 1: 83 bpm Height: 5'1" SpO2: 98% Weight: 245 lbs 08/20/2016 Blood Pressure 1: 142/78 Code: 8480-6 BMI: 45.3 Code: 81042-6 Heart Rate 1: 84 bpm Height: 5'1" SpO2: 99% Weight: 240 lbs 06/08/2016 Blood Pressure 1: 134/76 Code: 8480-6 BMI: 44.2 Code: 79526-8 Heart Rate 1: 86 bpm Height: 5'1" SpO2: 96% Weight: 234 lbs 04/02/2016 Blood Pressure 1: 142/70 Code: 8480-6 BMI: 44.6 Code: 48589-8 Heart Rate 1: 78 bpm Height: 5'1" SpO2: 97% Weight: 236 lbs 01/14/2016 Blood Pressure 1: 146/72 Code: 8480-6 BMI: 44.2 Code: 96426-8 Heart Rate 1: 86 bpm Height: 5'1" SpO2: 96% Weight: 234 lbs 10/02/2015 Blood Pressure 1: 158/76 Code: 8480-6 BMI: 44.2 Code: 16971-6 Heart Rate 1: 67 bpm Height: 5'1" SpO2: 97% Weight: 234 lbs 07/15/2015 Blood Pressure 1: 148/78 Code: 8480-6 Blood Pressure 1: 200/90 Code: 8480-6 BMI: 44.0 Code: 32599-9 Heart Rate 1: 89 bpm Height: 5'1" SpO2: 97% Weight: 233 lbs 06/10/2015 Blood Pressure 1: 140/82 Code: 8480-6 BMI: 44.0 Code: 68068-1 Heart Rate 1: 78 bpm Height: 5'1" [...] wearing crocs and there was a new [place] on the floor: her foot didn't move [...] Encounters Encounter Performer Loca tion Codes Date ([id number]) [id number] EST. 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 P ATIENT, LEVEL III Diagnosis: Localized edema[ICD10: R60.0] Diagnosis: Gastro-esophageal reflux disease without esophagitis[ICD10: K21.9] Edna Almanza MD, [facility] CPT-4: 83206 01/18/2018 ([id number]) [id number] EST. P ATIENT, LEVEL IV Diagnosis: Gastro-esophageal reflux disease without esophagitis[ICD10: K21.9] Diagnosis: Localized edema[ICD10: R60.0] Diagnosis: Essential (primary) hypertension[ICD10: I10] Diagnosis: Hypothyroidism, unspecified[ICD10: E03.9] Diagnosis: Impaired fasting glucose[ICD10: R73.01] Edna Almanza MD, [facility] CPT-4: 59678 01/04/2018 ([id number]) 33144 EST. P ATIENT, LEVEL IV Diagnosis: Essential (primary) hypertension[ICD10: I10] Diagnosis: [facility] (current) use of anticoagulants[ICD10: Z79.01] Diagnosis: Incisional hernia without obstruction or gangrene[ICD10: K43.2] Diagnosis: Right lower quadrant pain[ICD10: R10.31] Sarai Almanza MD, [facility] CPT-4: 69764 09/23/2017 ([id number]) [id number] EST. 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 PATIENT, LEVEL III Diagnosis: Pain in right hip[ICD10: M25.551] Nata Almanza MD, [facility] CPT-4: 53206 02/24/2017 ([id number]) 25319 EST. P ATIENT, LEVEL IV Diagnosis: Essential (primary) hypertension[ICD10: I10] Diagnosis: Localized edema[ICD10: R60.0] Diagnosis: Pain in right hip[ICD10: M25.551] Sarai Almanza MD, [facility] CPT-4: 69081 11/02/2016 ([id number]) 84554 EST. P ATIENT, LEVEL IV Diagnosis: Essential (primary) hypertension[ICD10: I10] Diagnosis: Localized edema[ICD10: R60.0] Sarai Almanza MD, [facility] CPT-4: 13039 09/30/2016 [id number] EST. PATIENT, LEVEL IV Diagnosis: Localized edema[ICD10: R60.0] Diagnosis: Pain in joints of left hand[ICD10: M25.542] Diagnosis: Pain in joints of right hand[ICD10: M25.541] Nata Almanza MD, [facility] CPT-4: 45354 09/10/2016 17352 EST. PATIENT, LEVEL IV Diagnosis: Localized edema[ICD10: R60.0] Diagnosis: Pain in joints of left hand[ICD10: M25.542] Diagnosis: Pain in joints of right hand[ICD10: M25.541] Diagnosis: Other fatigue[ICD10: R53.83] Nata Almanza MD, [facility] CPT-4: 80210 08/20/2016 [id number] EST. 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 PATIENT, LEVEL IV Diagnosis: Other allergic rhinitis[ICD10: J30.89] Diagnosis: Acute laryngopharyngitis[ICD10: J06.0] [facility] CPT-4: 89524 04/02/2016 12845 EST. PATIENT, LEVEL IV Diagnosis: Left upper quadrant pain[ICD10: R10.12] Nata Almanza MD, [facility] CPT-4: 13650 01/14/2016 68420 EST. PATIENT, LEVEL IV Diagnosis: Pain in left shoulder[ICD10: M25.512] Diagnosis: Body mass index (BMI) 40.0-44.9, adult[ICD10: Z68.41] Nata Almanza MD, [facility] CPT-4: 07442 10/02/2015 01409 EST. PATIENT, LEVEL IV Diagnosis: Pain in left leg[ICD10: M79.605] Diagnosis: Other sorter upholstery parts (current) drug therapy[ICD10: Z79.899] Nata Almanza MD, [facility] CPT-4: 36211 07/15/2015 ([id number]) 16309 EST. 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: Other sorter upholstery parts (current) drug therapy[ICD10: Z79.899] Edna Almanza MD, [facility] CPT-4: 09570 06/10/2015 ([id number]) OFFICE VISI T, NEW - LEVEL 4 Diagnosis: ESSENTIAL HYPERTENSION[ICD9: 401.9] Diagnosis: HYPOTHYROIDISM[ICD9: 244.9] Diagnosis: ENCNTR LONG-RX USE NEC[ICD9: V58.69] Diagnosis: HYPERLIPIDEMIA[ICD9: 272.4] Diagnosis: Vitamin B12 deficiency[ICD9: 266.2] Diagnosis: Status post gastric surgery[ICD9: V45.89] Diagnosis: Snoring[ICD9: 786.09] [facility] CPT-4: 47312 01/22/2015 Plan of Care Planned Activity Notes [...] Hgb A1C 04/14/2018 Appointment: Edna Douglas WPtel: [address] [phone] (15 min) Moderate 04/14/2018 Patient Education: Patient [...] to further attempt to reduce peripheral edema. SYSY-zzbjcwnc-icwozste prilosec BID and carafate QID -discussed low spice, low acidic diet 01/18/2018 Appointment: Edna Douglas WPtel: [phone] [phone] (15 min) Moderate 01/18/2018 Patient Education: Patient [...] of control. 01/04/2018 Appointment: Edna Douglas WPtel: [address] [place], [place] [phone] (30 min) Complex 01/04/2018 Patient Education: Patient Medication Summary Completed 01/04/2018 Care Plan: SCREENINGMAMMOGRAPHYDIGITAL LOINC : 77411-3 Pending 01/04/2018 Visit Plan: Abdominal hernia - not able to be taken to surgery by local providers and pt has been seen at [facility] and that surgeon felt like Kat [...] home. 09/23/2017 App[facility]ment: [phone] ([facility] min) Moderate 09/23/2017 Patient [...] medications. 05/27/2017 Appointment: [facility] Douglas [phone] [place] (30 min) Complex 05/27/2017 Patient Education: [...] dr. Chaney. 11/02/2016 Appointment: Sarai Almanza WPtel[facility] (15 min) Moderate 11/02/2016 Patient Education: Patient [...] peripheral edema. 09/30/2016 Appointment: Sarai Almanza WPtel: [facility] [place] (15 min) Moderate 09/30/2016 Patient Education: [...] peripheral edema. 09/10/2016 Appointment: Nata Hsu WPtel: [address] [place] [address] (30 min) Complex 09/10/2016 Patient Education: Patient [...] peripheral edema. 08/20/2016 Appointment: Nata Hsu WPtel: [facility] [address] (30 min) Complex 08/20/2016 Patient Education: Patient Medication Summary Completed 08/20/2016 Referral: Otf Lee [address] Referral Initiated 07/02/2016 Visit Plan: Chronic [...] 06/08/2016 Care Plan: Referral Order SNOMED-CT : [id number] Pending 06/08/2016 Visit Plan: URI - Pt [...] allergy spray. 04/02/2016 Appointment: Nata Hsu WPtel: [phone] [phone] (30 min) Complex 04/02/2016 Patient Education: Patient [...] acute pain 01/14/2016 Appointment: Edna Douglas WPtel: [phone] (30 min) Complex 01/14/2016 Patient Education: Patient Medication Summary Completed 01/14/2016 Patient Education: Obesity Completed 01/14/2016 Care Plan: BMI Above normal followup DAVID F-MGMT EDUC & TRAIN 1 PT Pending 10/24/2015 Care Plan: X-RAY EXAM OF SHOULDER LOINC : 30016-5 Pending 10/24/2015 Visit Plan: Left shoulder pain [...] check. 10/02/2015 Appointment: Edna Douglas WPtel: [phone] [phone] (15 min) Moderate 10/02/2015 Patient Education: Patient [...] ses Completed 06/10/2015 Appointment: Sarai Almanza WPtel: [address] [place], [place] [address] (15 min) Moderate 04/22/2015 Visit [...] to medications. 01/22/2015 Appointment: Sarai Almanza WPtel: [address] [place], [place] [phone] [place] (S) New Patient 01/22/2015 Patient Education: Patient Medication Summary Completed 01/22/2015 Patient Education: Hypertension Completed 01/22/2015 Referral: Otf Lee [address] Referral Initiated Instructions Comment dr almanza will [...] to further attempt to reduce peripheral edema. LSWT-ksylpbvk-vrvxujsh prilosec BID and carafate QID -discussed low [...] pt has been seen at [facility] and that surgeon felt like Kat [...] control. Elevated blood sugars-check Hgb A1C . URI - Pt advised t o [...]
--- OUTSIDE RECORDS SUMMARY | 2020-01-16 23:51 | XMS REPORT | CCD ---
Author Author Kat Almanza Organization Sarai Almanza MD, [facility] Address [address] [place] [address] Phone Care Team Providers Care Physician Office Specialist Name Role Phone PP Unavailable CCM Unavailable Summary Purpose Interface Exchange Insurance Providers Payer name Policy type / Coverage type Covered democrat ID Effective Begin Date Effective End Date WPS Medicare Part B Medicare Part B [id number] 2017 Unknown [employer] [place] Medicare Part B [id number] 2017 Unknown Family history Father Diagnosis Age At Onset Hyperlipidemia Unknown Heart Attack Unknown Mother Diagnosis Age At Onset Arthritis Unknown Social History Social History Element Codes Description Effective Dates Marital status Unknown M arried Nathan 09/30/2016 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 Number of children Unknown 3 01/22/[address]: 096620584 Never smoker 01/22/[address]: 568735379 Never drinks alcohol 01/22/2015 Allergies, Adverse Reactions, [...] ICD-9: 790.21 ICD-10: R73.01 Active 05/27/2017 Unknown jail (current) use of anticoagulants ICD-9: V58.61 ICD-10: [...] ICD-10: R53.83 Active 08/20/2016 Unknown 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 ICD-9: V58.69 [...] cose ICD-9: 790.21 ICD-10: R73.01 05/27/2017 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 ICD-9: V58.61 ICD-10: [...] 780.79 ICD-10: R53.83 08/20/2016 Active 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 04/18/2018 10/14/2018 Ac tive Generic For:ZYLOPRIM 300 MG TABLET 03/22 9:13:47 AM Lasix 20 mg tablet RxNorm: 330305 TAKE ONE TABLET BY MOUTH DAILY 04/18/2018 08/15/2018 Ac tive Generic For:LASIX 20MG 04/18/2018 9:13: 50 AM Carafate 1 gram tablet RxNorm: 980624 TAKE ONE TABLET BY MOUTH BEFORE MEALS AN D AT BEDTIME 04/18/2018 05/17/2018 Inactive Generic For:CARAFATE 1GM 1 9:32:51 AM Coumadin 5 mg tablet RxNorm: 293548 TAKE 1 TABLET BY MOUTH DIRECTED 03/21/2018 09/16/2018 Ac tive Generic For:COUMADIN 5MG TAB 03/21/2018 9:13:00 AM Carafate 1 gram tablet RxNorm: 145632 TAKE ONE TABLET BY MOUTH BEFORE MEALS AN D AT BEDTIME 03/21/2018 04/17/2018 Inactive Generic For:CARAFATE 1GM 1 9:14:24 AM Carafate 1 gram tablet RxNorm: 613693 1 Tablet(s) PO AC & HS 02/17/2018 03/20/2018 Inactive atenolol 100 mg tablet RxNorm: 631024 1 Tablet(s) PO daily 02/04/2018 09/01/2018 Active atenolol 50 mg tablet RxNorm: 884403 1 Tablet(s) PO daily 02/03/2018 02/03/2018 Inactive omeprazole 20 mg cap sean,delayed release RxNorm: 412691 1 Capsule(s) BID 01/21/2018 01/15/2019 Ac tive Generic For:PRILOSEC 20MG 07/22/2017 8:5 8:20 AM Carafate 1 gram tablet RxNorm: 652631 1 Tablet(s) PO AC & HS 01/21/2018 02/16/2018 Inactive Carafate 1 gram tablet RxNorm: 687690 1 Tablet(s) PO AC & HS 01/18/2018 01/20/2018 Inactive Carafate 1 gram tablet RxNorm: 774075 1 Tablet(s) PO AC & HS 01/18/2018 02/27/2018 Inactive Carafate 1 gram tablet RxNorm: 471915 1 Tablet(s) PO AC & HS TAKE ONE TABLET B Y MOUTH TWICE DAILY 01/18/2018 05/17/2018 Inactive Generic For:CARAFATE 1GM 0 12/20/2017 9:10:56 AM omeprazole 20 mg cap sean,delayed release RxNorm: 213326 Capsule(s) TAKE 1 CAP SEAN BY MOUTH EVERY DAY 01/17/2018 01/20/2018 Inactive Generic For:PRILOSEC 20MG 0 07/22/2017 8:58:20 AM omeprazole 20 mg cap sean,delayed release RxNorm: 790256 Capsule(s) TAKE 1 CAP SEAN BY MOUTH EVERY DAY 01/14/2018 01/16/2018 Inactive Generic For:PRILOSEC 20MG 07/22/2017 8:58:20 AM clonazepam 0.5 mg ta blet RxNorm: 480768 1 Tablet(s) PO BID 01/07/2018 06/05/2018 Active Plavix 75 mg tablet RxNorm: 239691 1 Tablet(s) PO daily 01/07/2018 07/05/2018 Active Carafate 1 gram tablet RxNorm: 315755 1 Tablet(s) PO AC & HS 01/04/2018 01/17/2018 Inactive sodium bicarbonate 6 50 mg tablet RxNorm: 172278 TAKE 2 TABLETS BY JAVON TH TWICE DAILY 12/20/2017 06/17/2018 Ac tive 12/20/2017 9:10:59 AM Lasix 20 mg tablet RxNorm: 982975 TAKE ONE TABLET BY MOUTH DAILY 12/20/2017 04/17/2018 In active Generic For:LASIX 20MG 12/20/2017 9:11: 03 AM Carafate 1 gram tablet RxNorm: 869566 TAKE ONE TABLET BY MOUTH TWICE DAILY 12/20/2017 01/17/2018 In active Generic For:CARAFATE 1GM 12/20/2017 9:1 0:56 AM Synthroid 137 mcg ta blet RxNorm: 961270 TAKE 1 TABLET BY MOUT H ONCE DAILY 11/19/2017 05/17/2018 In active Generic For:SYNTHROID 137MCG TAB 2017 8:58:04 AM Detrol LA 4 mg capsu le,extended release RxNorm: 721225 TAKE 1 CAPSULE BY JAVON TH ONCE DAILY 10/20/2017 04/13/2018 Inactive Generic For:DETROL LA 4MG C AP 10/20/2017 9:01:56 AM allopurinol 300 mg t ablet RxNorm: 200706 TAKE 1 TABLET BY MOUT H ONCE DAILY. 10/20/2017 04/17/2018 In active Generic For:ZYLOPRIM 300 MG TABLET 07/2017 9:01:59 AM Coumadin 5 mg tablet RxNorm: 225904 1 Tablet(s) PO UD 10/01/2017 03/20/2018 Inactive cyclobenzaprine 5 mg tablet RxNorm: 962543 1 Tablet(s) PO TID as needed myscle spasm 09/23/2017 10/12/2017 Inactive Lipitor 40 mg tablet RxNorm: 103515 TAKE 1 TABLET BY MOUTH ONCE DAILY 09/20/2017 09/14/2018 Ac tive Generic For:LIPITOR 40MG 09/20/2017 8:5 6:04 AM atenolol 100 mg tablet RxNorm: 414416 1 Tablet(s) PO daily 08/30/2017 02/03/2018 Inactive atenolol 50 mg tablet RxNorm: 941657 1 Tablet(s) PO daily 08/30/2017 08/30/2017 Inactive Lovenox 30 mg/0.3 mL subcutaneous syringe RxNorm: 109772 0.3 Milliliter(s) SQ Q12H 08/24/2017 09/06/2017 In active Lasix 20 mg tablet RxNorm: 636548 TAKE ONE TABLET BY MOUTH DAILY 08/23/2017 12/19/2017 In active Generic For:LASIX 20MG 08/21/2017 9:04: 27 AM Synthroid 137 mcg ta blet RxNorm: 698827 TAKE 1 TABLET BY MOUT H ONCE DAILY 08/23/2017 11/18/2017 In active Generic For:SYNTHROID 137MCG TAB 2017 9:04:30 AM Lovenox 30 mg/0.3 mL subcutaneous syringe RxNorm: 491087 0.3 Milliliter(s) SQ Q12H 08/10/2017 08/23/2017 In active clonazepam 0.5 mg ta blet RxNorm: 986063 1 Tablet(s) PO BID 08/04/2017 12/30/2017 Inactive Coumadin 4 mg tablet RxNorm: 923225 TAKE 1 TABLET BY MOUTH THREE TIMES PER W HUGHES (WEDNESDAY, WEDNESDAY AND WEDNESDAY) 07/22/2017 02/16/2018 Inactive Generic For:COUMADIN 4MG 07/22/2017 8:58:26 AM Coumadin 4 mg tablet RxNorm: 093380 TAKE 1 TABLET BY MOUTH THREE TIMES PER W HUGHES (WEDNESDAY, WEDNESDAY AND WEDNESDAY) 07/22/2017 02/16/2018 Inactive Generic For:COUMADIN 4MG 07/22/2017 8:58:26 AM omeprazole 20 mg cap sean,delayed release RxNorm: 576148 TAKE 1 CAPSULE BY JAVON TH EVERY DAY 07/22/2017 01/13/2018 Inactive Generic For:PRILOSEC 20MG 07/22/2017 8: 58:20 AM venlafaxine ER 75 mg capsule,extended release 24 hr RxNorm: 739178 TAKE 1 CAPSULE BY MOUTH ONCE DAILY 06/22/2017 06/16/2018 Active Generic For:*EFFEXOR XR 75MG 06/19/2017 12:23:45 PM sodium bicarbonate 6 50 mg tablet RxNorm: 329895 TAKE 2 TABLETS BY JAVON TH TWICE DAILY 06/22/2017 12/18/2017 In active 06/19/2017 12:23:30 PM Coumadin 5 mg tablet RxNorm: 069833 1 Tablet(s) PO UD 06/01/2017 09/30/2017 Inactive Keflex 500 mg capsule RxNorm: 526016 1 Capsule(s) PO TID 05/27/2017 06/02/2017 Inactive Synthroid 137 mcg ta blet RxNorm: 040103 TAKE 1 TABLET BY MOUT H ONCE DAILY 05/24/2017 08/21/2017 In active Generic For:SYNTHROID 137MCG TAB 2016 8:55:59 AM Carafate 1 gram tablet RxNorm: 841858 TAKE ONE TABLET BY MOUTH TWICE DAILY 05/24/2017 12/19/2017 In active Generic For:CARAFATE 1GM 05/24/2017 8:5 5:54 AM spironolactone 25 mg tablet RxNorm: 922355 1 Tablet(s) PO daily 05/24/2017 05/17/2018 Inactive Detrol LA 4 mg capsu le,extended release RxNorm: 494013 1 Capsule(s) PO daily TAKE 1 CAPSULE BY MOUTH ONCE DAILY 05/10/2017 10/19/2017 Inactive Generic For:DETROL LA 4MG CAP 02/19/2017 2:36:00 PM Lasix 20 mg tablet RxNorm: 273144 TAKE ONE TABLET BY MOUTH DAILY 04/23/2017 08/20/2017 In active Generic For:LASIX 20MG 04/23/2017 9:04: 01 AM Coumadin 4 mg tablet RxNorm: 714612 TAKE 1 TABLET BY MOUTH THREE TIMES PER W HUGHES (WEDNESDAY, WEDNESDAY AND WEDNESDAY) 04/23/2017 07/21/2017 Inactive Generic For:COUMADIN 4MG 04/23/2017 9:04:05 AM allopurinol 300 mg t ablet RxNorm: 038670 TAKE 1 TABLET BY MOUT H ONCE DAILY. 04/23/2017 10/19/2017 In active Generic For:ZYLOPRIM 300 MG TABLET 08/2016 9:03:57 AM potassium chloride 2 0 mEq/15 mL oral liquid RxNorm: 396956 Milliliter(s) 30 Milliliter(s) (40mEq) PO daily 03/24/2017 07/21/2017 Inactive Lovenox 30 mg/0.3 mL subcutaneous syringe RxNorm: 020565 0.3 Milliliter(s) SQ Q12H 03/22/2017 03/26/2017 In active Lovenox 30 mg/0.3 mL subcutaneous syringe RxNorm: 441468 0.3 Milliliter(s) SQ Q12H 03/19/2017 03/20/2017 In active Lovenox 30 mg/0.3 mL subcutaneous syringe RxNorm: 635707 0.3 Milliliter(s) SQ Q12H 03/16/2017 03/18/2017 In active clonazepam 0.5 mg ta blet RxNorm: 928908 1 Tablet(s) PO BID 03/02/2017 07/28/2017 Inactive Lovenox 30 mg/0.3 mL subcutaneous syringe RxNorm: 087649 1 injection SQ BID do NOT take the night time dose the day before surgery, or the morning dose the day of surgery 03/01/2017 03/07/2017 Inactive Lovenox 30 mg/0.3 mL subcutaneous syringe RxNorm: 402777 1 injection SQ BID 03/01/2017 02/28/2017 In active Detrol LA 4 mg capsu le,extended release RxNorm: 618406 TAKE 1 CAPSULE BY JAVON TH ONCE DAILY 02/19/2017 05/09/2017 Inactive Generic For:DETROL LA 4MG C AP 02/19/2017 2:36:00 PM hydrocodone 5 mg-humberto taminophen 325 mg tablet RxNorm: 907041 1-2 Tablet(s) PO Q6 P RN 02/04/2017 No Stop Date Active Zetia 10 mg tablet RxNorm: 947423 TAKE 1 TABLET BY MOUTH DAILY 01/25/2017 04/13/2018 Inactive 01/23/2017 9:03:48 AM omeprazole 20 mg cap sean,delayed release RxNorm: 441797 TAKE 1 CAPSULE BY JAVON TH EVERY DAY 01/25/2017 07/21/2017 Inactive Generic For:PRILOSEC 20MG 01/23/2017 9: 03:45 AM Coumadin 4 mg tablet RxNorm: 275898 TAKE 1 TABLET BY MOUTH THREE TIMES PER [place] HUGHES (WEDNESDAY, WEDNESDAY AND WEDNESDAY) 01/25/2017 04/22/2017 Inactive Generic For:COUMADIN 4MG 01/23/2017 9:03:51 AM sodium bicarbonate 6 50 mg tablet RxNorm: 126654 TAKE 2 TABLETS BY JAVON TH TWICE DAILY 12/24/2016 06/21/2017 In active 12/24/2016 9:09:27 AM Lasix 20 mg tablet RxNorm: 039189 1 Tablet(s) PO daily 12/24/2016 04/22/2017 Inactive Synthroid 137 mcg ta blet RxNorm: 949708 TAKE 1 TABLET BY MOUT H ONCE DAILY 11/24/2016 05/22/2017 In active Generic For:SYNTHROID 137MCG TAB 2016 9:04:37 AM Coumadin 4 mg tablet RxNorm: 498528 TAKE 1 TABLET BY MOUTH THREE TIMES PER [place] HUGHES (WEDNESDAY, WEDNESDAY AND WEDNESDAY) 11/24/2016 01/22/2017 Inactive Generic For:COUMADIN 4MG 11/24/2016 9:04:41 AM hydrocodone 5 mg-humberto taminophen 325 mg tablet RxNorm: 302995 1-2 Tablet(s) PO Q6 P RN 11/17/2016 02/03/2017 In active Carafate 1 gram tablet RxNorm: 072467 TAKE ONE TABLET BY MOUTH TWICE DAILY 10/27/2016 05/23/2017 In active Generic For:CARAFATE 1GM 10/26/2016 8:3 9:42 AM allopurinol 300 mg t ablet RxNorm: 379148 Tablet(s) TAKE 1 TABL ET BY MOUTH ONCE DAILY. 10/26/2016 04/22/2017 Inactive Lipitor 40 mg tablet RxNorm: 975193 1 Tablet(s) PO daily 09/25/2016 09/19/2017 Inactive Coumadin 4 mg tablet RxNorm: 244924 TAKE 1 TABLET BY MOUTH THREE TIMES PER [facility] HUGHES (WEDNESDAY, WEDNESDAY AND WEDNESDAY) 09/25/2016 11/23/2016 Inactive Generic For:COUMADIN 4MG 09/25/2016 8:55:58 AM Zetia 10 mg tablet RxNorm: 391088 1 Tablet(s) PO daily 09/25/2016 01/22/2017 Inactive gave 1 month of samples clonazepam 0.5 mg ta blet RxNorm: 047991 1 Tablet(s) PO BID 09/21/2016 02/16/2017 Inactive Lasix 20 mg tablet RxNorm: 546540 1 Tablet(s) PO daily 09/15/2016 12/23/2016 Inactive potassium chloride 2 0 mEq/15 mL oral liquid RxNorm: 173731 Milliliter(s) 30 Milliliter(s) (40mEq) PO daily 09/15/2016 01/12/2017 Inactive Lasix 20 mg tablet RxNorm: 026605 2 Tablet(s) PO daily 09/10/2016 09/12/2016 Inactive Lasix 20 mg tablet RxNorm: 882770 1 Tablet(s) PO daily 08/28/2016 08/30/2016 Inactive Lasix 20 mg tablet RxNorm: 726671 1 Tablet(s) PO daily 08/20/2016 08/22/2016 Inactive Detrol LA 4 mg capsu le,extended release RxNorm: 926091 TAKE 1 CAPSULE BY JAVON ONCE DAILY 07/27/2016 02/18/2017 Inactive Generic For:DETROL LA 4MG C AP 07/27/2016 9:08:27 AM Coumadin 4 mg tablet RxNorm: 346552 1 Tablet(s) PO 3 x week wed and sun 07/27/2016 09/24/2016 In active omeprazole 20 mg cap sean,delayed release RxNorm: 350364 Capsule(s) PO TAKE 1 CAPSULE BY MOUTH ONCE DAILY 07/27/2016 01/22/2017 Inactive venlafaxine ER 75 mg capsule,extended release 24 hr RxNorm: 340478 1 Capsule(s) PO daily 06/29/2016 06/21/2017 Inactive sodium bicarbonate 6 50 mg tablet RxNorm: 869326 TAKE 2 TABLETS BY JAVON TWICE DAILY 06/29/2016 12/23/2016 In active 06/27/2016 9:05:39 AM Coumadin 4 mg tablet RxNorm: 964201 1 Tablet(s) PO 3 x week wed and sun 06/09/2016 06/08/2016 In active Coumadin 4 mg tablet RxNorm: 023228 1 Tablet(s) PO 3 x week wed and sun 06/09/2016 07/26/2016 In active Zetia 10 mg tablet RxNorm: 730732 1 Tablet(s) PO daily 06/09/2016 06/08/2016 Inactive gave 1 month of samples Zetia 10 mg tablet RxNorm: 569466 1 Tablet(s) PO daily 06/09/2016 09/24/2016 Inactive gave 1 month of samples Effexor 75 mg tablet RxNorm: 782362 1 Tablet(s) PO daily 06/08/2016 06/28/2016 Inactive spironolactone 25 mg tablet RxNorm: 078497 1 Tablet(s) PO daily 06/08/2016 05/23/2017 Inactive Synthroid 137 mcg ta blet RxNorm: 744218 1 Tablet(s) PO daily 05/07/2016 11/02/2016 Inactive allopurinol 300 mg t ablet RxNorm: 028874 Tablet(s) TAKE 1 TABL ET BY MOUTH ONCE DAILY. 04/28/2016 10/24/2016 Inactive clonazepam 0.5 mg ta blet RxNorm: 182665 1 Tablet(s) PO BID 04/20/2016 09/15/2016 Inactive Flonase Allergy Reli ef 50 mcg/actuation nasal spray,suspension RxNorm: 3137305 1 [place] NASAL BID 04/02/2016 No Stop Date Active Zithromax Z-Thomas 250 mg tablet RxNorm: 470244 Tablet(s) PO 04/02/2016 08/27/2016 Inactive cetirizine 10 mg tablet RxNorm: 1895461 1 Tablet(s) PO daily 04/02/2016 05/01/2016 Inactive Carafate 1 gram tablet RxNorm: 444726 Tablet(s) TAKE 1 TABLET TWICE A DAY FOR 30 DAYS 03/30/2016 10/25/2016 Inactive Generic For:CARAFATE 1GM 02/08/2015 12:3 6:39 PM Plavix 75 mg tablet RxNorm: 689626 1 Tablet(s) PO daily 03/11/2016 09/06/2016 Inactive sodium bicarbonate 6 50 mg tablet RxNorm: 260400 Tablet(s) 2 Tablet(s) PO BID 02/28/2016 06/26/2016 In active omeprazole 20 mg cap sean,delayed release RxNorm: 730038 Capsule(s) PO TAKE 1 CAPSULE BY MOUTH ONCE DAILY 01/31/2016 07/26/2016 Inactive Fish Oil 1,000 mg ca psule RxNorm: 1 Capsule(s) PO BID 01/14/2016 No Stop Date Active Synthroid 137 mcg ta blet RxNorm: 405507 1 Tablet(s) PO daily 01/14/2016 05/06/2016 Inactive Detrol LA 4 mg capsu le,extended release RxNorm: 643225 TAKE 1 CAPSULE BY JAVON TH ONCE DAILY 12/30/2015 07/26/2016 Inactive Generic For:DETROL LA 4MG C AP 12/30/2015 9:11:01 AM potassium chloride 2 0 mEq/15 mL oral liquid RxNorm: 737128 Milliliter(s) 30 Milliliter(s) (40mEq) PO daily 12/02/2015 03/30/2016 Inactive sodium bicarbonate 6 50 mg tablet RxNorm: 733094 Tablet(s) 2 Tablet(s) PO BID 10/31/2015 02/27/2016 In active Lipitor 40 mg tablet RxNorm: 629788 1 Tablet(s) PO daily 10/09/2015 09/24/2016 Inactive sodium bicarbonate 6 50 mg tablet RxNorm: 610617 2 Tablet(s) PO BID 10/01/2015 10/30/2015 Inactive allopurinol 300 mg t ablet RxNorm: 723278 TAKE 1 TABLET BY MOUT H ONCE DAILY. 10/01/2015 04/27/2016 In active Generic For:ZYLOPRIM 300 MG TABLET 09/19 9:21:15 AM clonazepam 0.5 mg ta blet RxNorm: 250812 1 Tablet(s) PO BID 09/30/2015 04/19/2016 Inactive Coumadin 5 mg tablet RxNorm: 775869 1 Tablet(s) PO daily 09/27/2015 05/31/2017 Inactive Generic For:COUMADIN 5MG TAB N O T I C E PRESCRIPTION PREVIOUSLY AUTHORIZED BY DOCTOR:BOBBY ZULETA Synthroid 125 mcg ta blet RxNorm: 308579 1 Tablet(s) PO daily 09/27/2015 09/26/2015 Inactive Synthroid 125 mcg ta blet RxNorm: 974178 1 Tablet(s) PO daily 09/27/2015 01/13/2016 Inactive Carafate 1 gram tablet RxNorm: 816257 Tablet(s) TAKE 1 TABLET TWICE A DAY FOR 30 DAYS 09/02/2015 03/29/2016 Inactive Generic For:CARAFATE 1GM 02/08/2015 12:3 6:39 PM sodium bicarbonate 6 50 mg tablet RxNorm: 212009 2 Tablet(s) PO BID 09/02/2015 09/30/2015 Inactive Prilosec 20 mg capsu le,delayed release RxNorm: 897688 TAKE 1 CAPSULE BY JAVON TH ONCE DAILY 08/02/2015 01/28/2016 Inactive Generic For:PRILOSEC 20MG 08/02/2015 10:03:09 AM N O T I C E PRESCRIPTION PREVIOUSLY AUTHORIZED BY DOCTOR:BOBBY ZULETA Zyrtec 10 mg capsule RxNorm: 6846317 1 Capsule(s) PO daily 07/15/2015 08/13/2015 Inactive Keflex 500 mg capsule RxNorm: 399193 1 Capsule(s) PO TID 07/15/2015 07/21/2015 Inactive cetirizine 10 mg cap sean RxNorm: 1048677 1 Capsule(s) PO daily 07/15/2015 08/13/2015 Inactive hydrocodone 5 mg-humberto taminophen 325 mg tablet RxNorm: 670529 1-2 Tablet(s) PO Q6 P RN 06/10/2015 11/16/2016 In active sodium bicarbonate 6 50 mg tablet RxNorm: 780162 2 Tablet(s) PO BID 06/03/2015 08/31/2015 Inactive Detrol LA 4 mg capsu le,extended release RxNorm: 416769 TAKE 1 CAPSULE BY JAVON ONCE DAILY 06/03/2015 12/29/2015 Inactive Generic For:DETROL LA 4MG C AP N O T I C E PRESCRIPTION PREVIOUSLY AUTHORIZED BY DOCTOR:BOBBY ZULETA atenolol 50 mg tablet RxNorm: 153156 1 Tablet(s) PO daily TAKE 1 TABLET BY MO [facility] DAILY 05/07/2015 08/23/2017 Inactive Generic For:TENORMIN 50MG 05/04/2015 9:07:22 AM spironolactone 25 mg tablet RxNorm: 556461 1 Tablet(s) PO daily 05/06/2015 06/07/2016 Inactive venlafaxine ER 75 mg capsule,extended release 24 hr RxNorm: 712329 1 Capsule(s) PO daily 05/04/2015 06/28/2016 Inactive atenolol 50 mg tablet RxNorm: 590809 TAKE 1 TABLET BY MOUTH DAILY 05/04/2015 05/06/2015 Inactive Generic For:TENORMIN 50MG 05/04/2015 9: 07:22 AM Synthroid 150 mcg ta blet RxNorm: 360106 TAKE 1 TABLET BY MOUT H ONCE DAILY. 04/05/2015 09/26/2015 In active Generic For:SYNTHROID 150MCG TAB 2014 4:45:40 PM N O T I C E PRESCRIPTION PREVIOUSLY AUTHORIZED BY DOCTOR:BOBBY ZULETA Effexor 75 mg tablet RxNorm: 452272 1 Tablet(s) PO daily 04/05/2015 07/03/2015 Inactive Coumadin 5 mg tablet RxNorm: 640828 TAKE 1 AND 1/2 TABLETS BY MOUTH ONCE MYRANDA LY 04/04/2015 09/26/2015 In active Generic For:COUMADIN 5MG TAB N O T I C E PRESCRIPTION PREVIOUSLY AUTHORIZED BY DOCTOR:BOBBY ZULETA clonazepam 0.5 mg ta blet RxNorm: 339298 1 Tablet(s) PO BID 03/13/2015 11/05/2015 Inactive sodium bicarbonate 6 50 mg tablet RxNorm: 736504 2 Tablet(s) PO BID 03/08/2015 06/02/2015 Inactive allopurinol 300 mg t ablet RxNorm: 446709 TAKE 1 TABLET BY MOUT H ONCE DAILY. 03/05/2015 09/30/2015 In active N O T I C E PRESCRIPTION PREVIOUSLY A UTHORIZED BY DOCTOR:BOBBY ZULETA Plavix 75 mg tablet RxNorm: 914842 1 Tablet(s) PO daily 02/12/2015 09/09/2015 Inactive clonazepam 0.5 mg ta blet RxNorm: 646709 1 Tablet(s) PO BID 02/11/2015 03/11/2015 Inactive Carafate 1 gram tablet RxNorm: 053596 TAKE 1 TABLET TWICE A DAY FOR 30 DAYS 02/08/2015 02/07/2015 In active Generic For:CARAFATE 1GM 02/08/2015 12:3 6:39 PM Carafate 1 gram tablet RxNorm: 673126 Tablet(s) TAKE 1 TABLET TWICE A DAY FOR 30 DAYS 02/08/2015 09/01/2015 Inactive Generic For:CARAFATE 1GM 02/08/2015 12:3 6:39 PM potassium chloride 2 0 mEq/15 mL oral liquid RxNorm: 473687 30 Milliliter(s) (40m Eq) PO daily 02/05/2015 12/01/2015 Inactive atenolol 50 mg tablet RxNorm: 961032 1 Tablet(s) PO daily 02/04/2015 05/03/2015 Inactive [SAVINGS FOR NON-COVERED DRUGS -- BIN:00 3585, PCN: ASPROD1, Group: XXXXX, ID# [id number], Questions: . THIS IS NOT INSURANCE.] potassium chloride 2 0 mEq/15 mL oral liquid RxNorm: 339235 30 Milliliter(s) (40m Eq) PO daily 01/08/2015 02/04/2015 Inactive potassium chloride 2 0 mEq/15 mL oral liquid RxNorm: 009502 30 Milliliter(s) (40m Eq) PO daily 12/07/2014 01/07/2015 Inactive atenolol 50 mg tablet RxNorm: 455142 1 Tablet(s) PO daily 11/09/2014 11/08/2014 Inactive atenolol 50 mg tablet RxNorm: 728690 1 Tablet(s) PO daily 11/09/2014 02/03/2015 Inactive [SAVINGS FOR NON-COVERED DRUGS -- BIN:00 3585, PCN: ASPROD1, Group: XXXXX, ID# [id number], Questions: . THIS IS NOT INSURANCE.] Voltaren 1 % topical gel RxNorm: 761568 TOP No St art Date Active verapamil ER (HS) 24 0 mg tablet,extended release 24 hr RxNorm: 531616 1 Tablet(s) PO daily No Start Date Active aspirin 81 mg tablet RxNorm: 988386 1 Tablet(s) PO daily No Start Date Active Zofran 4 mg tablet RxNorm: 335739 1 Tablet(s) PO PRN No Start Date Active B12 1000 mcg RxNorm: 1 Tablet(s) PO daily No Start Date Active magnesium oxide 400 mg capsule RxNorm: 632413 2 Capsule(s) PO BID No Start Date Active Synthroid 150 mcg ta blet RxNorm: 048044 1 Tablet(s) PO daily No Start Date 04/04/2015 Inactive Coumadin 5 mg tablet RxNorm: 486230 1 Tablet(s) PO daily No Start Date 04/03/2015 Inactive cranberry 1,000 mg c apsule RxNorm: 087746 1 Capsule(s) PO daily No Start Date 04/13/2018 Inactive allopurinol 300 mg t ablet RxNorm: 651449 1 Tablet(s) PO daily No Start Date 03/04/2015 Inactive Prilosec 20 mg capsu le,delayed release RxNorm: 454965 1 Capsule(s) PO PRN No Start Date 08/01/2015 Inactive potassium chloride 2 0 mEq/15 mL oral liquid RxNorm: 412699 30 Milliliter(s) (40m Eq) PO daily No Start Date 12/06/2014 Inactive atenolol 50 mg tablet RxNorm: 550970 1 Tablet(s) PO daily No Start Date 08/29/2017 Inactive Lipitor 40 mg tablet RxNorm: 675605 1 Tablet(s) PO daily No Start Date 09/19/2017 Inactive Effexor 75 mg tablet RxNorm: 625918 1 Tablet(s) PO daily No Start Date 04/04/2015 Inactive Carafate 1 gram tablet RxNorm: 582528 1 Tablet(s) PO BID No Start Date 02/07/2015 Inactive clonazepam 0.5 mg ta blet RxNorm: 052539 1 Tablet(s) PO BID No Start Date 02/10/2015 Inactive Plavix 75 mg tablet RxNorm: 883110 1 Tablet(s) PO daily No Start Date 02/11/2015 Inactive sodium bicarbonate 6 50 mg tablet RxNorm: 928903 2 Tablet(s) PO BID No Start Date 09/01/2015 Inactive Lovenox 30 mg/0.3 mL subcutaneous syringe RxNorm: 705779 0.3 Milliliter(s) SQ Q12H No Start Date 03/15/2017 Inactive Fish Oil 1,000 mg ca psule RxNorm: 1 Capsule(s) PO daily No Start Date 01/13/2016 Inactive Detrol LA 4 mg capsu le,extended release RxNorm: 137456 1 Capsule(s) PO daily No Start Date 06/02/2015 Inactive Medication Administered No Medication Administered data Immunizations Vaccine Codes Date Status SHINGARIX CVX: 121 03/23 completed Assessments Condition Codes Effectiv e Dates Hypothyroidism, unspecified ICD-10: E03.9 ICD-9: 244.9 04/14/2018 Essential (primary) hypertension ICD -10: I10 ICD-9: 401.9 04/14/2018 jail (current) use of anticoagulants ICD-10: Z79.01 ICD-9: [...] ICD-10: R53.83 ICD-9: 780.79 08/20/2016 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 ICD-10: Z79.899 ICD-9: [...] Code Item Item Code Result Date Pt Erl3988 PT 16.8 seconds 05/10/2018 Pt Jab1569 INR 1.4 05/10/2018 Pt Aog2119 Low Intensity - 1.5-2.0 05/10/2018 Pt Vmb8994 Mod intensity - 2.0-3.0 05/10/2018 Pt Etd0975 Hi intensity - 3.0-4.0 05/10/2018 Pt Tvu6805 PT 16.7 seconds 05/04/2018 Pt Rsp7141 INR 1.4 05/04/2018 Pt Drz0700 Low Intensity - 1.5-2.0 05/04/2018 Pt Adz1547 Mod intensity - 2.0-3.0 05/04/2018 Pt Cdm2554 Hi intensity - 3.0-4.0 05/04/2018 Free T4 Cgv557 FREE T4 1.09 ng/dL 04/14/2018 Tsh Ord6 TSH (3rd IS) 2.36 uIU/mL 04/14/2018 Pt Raq8968 PT 20.3 seconds 04/14/2018 Pt Sjd7468 INR 1.8 04/14/2018 Pt Afd3775 Low Intensity - 1.5-2.0 04/14/2018 Pt Kyu7837 Mod intensity - 2.0-3.0 04/14/2018 Pt Pnc0653 Hi intensity - 3.0-4.0 04/14/2018 Lipid Ord30 CHOL 149 mg/dL 04/14/2018 Lipid Ord30 HDL 49.0 mg/dl 04/14/2018 Lipid Ord30 TRIG 161 mg/dL 04/14/2018 Lipid Ord30 LDL 68 mg/dL 04/14/2018 Lipid Ord30 C/HDL 3.0 Ratio 04/14/2018 %Hba1C Ubb506 % HbA1c 78486-2 5.9 % 04/14/2018 %Hba1C Guj693 Gluc Ave 123 mg/dL 04/14/2018 Comp Metabolic Nro508 NA 140 mEq/L 04/14/2018 Comp Metabolic Efy467 K 4.1 mEq/L 04/14/2018 Comp Metabolic Pix516 CL 105 mEq/L 04/14/2018 Comp Metabolic Fjs327 CO2 28.0 mEq/L 04/14/2018 Comp Metabolic Ltq362 AN ION GAP 11 04/14/2018 Comp Metabolic Qfy255 GL UCOSE 112 mg/dL 04/14/2018 Comp Metabolic Qum863 Cr eat 1.0 mg/dL 04/14/2018 Comp Metabolic Uxu028 eG FR 58 ml/min/1.73m2 04/14 Comp Metabolic Bxx632 BUN 20 mg/dL 04/14/2018 Comp Metabolic Ntq919 B/ C Ratio 20.2 Ratio 04/14/2018 Comp Metabolic Oyp993 CA LCIUM 10.0 mg/dL 04/14/2018 Comp Metabolic Abs022 AL K PHOS 51 U/L 04/14/2018 Comp Metabolic Emi927 T(SGOT) 24 U/L 04/14/2018 Comp Metabolic Sht787 AL T(SGPT) 21 U/L 04/14/2018 Comp Metabolic Uyx210 BI LI T 0.8 mg/dL 04/14/2018 Comp Metabolic Ucg612 AL BUMIN 4.2 g/dL 04/14/2018 Comp Metabolic Ypr603 TP RO 7.1 g/dL 04/14/2018 Comp Metabolic Jxj181 GL OB 2.9 g/dL 04/14/2018 Comp Metabolic Vlg089 A/ G Ratio 1.5 Ratio 04/14/2018 Comp Metabolic Kfl469 Os mo 283 mOsmo 04/14/2018 Cbc With [...] 30.7 pg 04/14/2018 Cbc With Differential Ord2 [place]% 10.6 % 04/14/2018 Cbc With Differential Ord2 [...] 1.18 K/ul 04/14/2018 Cbc With Differential Ord2 [place] ABS# 0.5 K/ul 04/14/2018 Cbc With Differential Ord2 Eos ABS# 0.2 K/ul 04/14/2018 Cbc With Differential Ord2 Baso ABS# 0.1 K/ul 04/14/2018 Pt Gpe6352 PT 29.3 seconds 02/11/2018 Pt Ydq3430 INR 2.8 02/11/2018 Pt Vxs0213 Low Intensity - 1.5-2.0 02/11/2018 Pt Sgq9176 Mod intensity - 2.0-3.0 02/11/2018 Pt Tak3574 Hi intensity - 3.0-4.0 02/11/2018 Comp Metabolic Xqg860 NA 141 mEq/L 01/05/2018 Comp Metabolic Ckq132 K 3.7 mEq/L 01/05/2018 Comp Metabolic Ijg819 CL 102 mEq/L 01/05/2018 Comp Metabolic Ops950 CO2 29.0 mEq/L 01/05/2018 Comp Metabolic Fij997 AN ION GAP 14 01/05/2018 Comp Metabolic Ahu087 GL UCOSE 136 mg/dL 01/05/2018 Comp Metabolic Pek939 Cr eat 1.0 mg/dL 01/05/2018 Comp Metabolic Aqk372 eG FR 61 ml/min/1.73m2 01/05 Comp Metabolic Xha572 BUN 22 mg/dL 01/05/2018 Comp Metabolic Cqf638 B/ C Ratio 22.9 Ratio 01/05/2018 Comp Metabolic Laz949 CA LCIUM 9.7 mg/dL 01/05/2018 Comp Metabolic Khc076 AL K PHOS 57 U/L 01/05/2018 Comp Metabolic Abb367 T(SGOT) 21 U/L 01/05/2018 Comp Metabolic Dvc905 AL T(SGPT) 19 U/L 01/05/2018 Comp Metabolic Azo861 BI LI T 0.9 mg/dL 01/05/2018 Comp Metabolic Rwy426 AL BUMIN 4.1 g/dL 01/05/2018 Comp Metabolic Ryn632 TP RO 7.1 g/dL 01/05/2018 Comp Metabolic Nxf317 GL OB 3.0 g/dL 01/05/2018 Comp Metabolic Irs483 A/ G Ratio 1.4 Ratio 01/05/2018 Comp Metabolic Fhg485 Os mo 287 mOsmo 01/05/2018 Free T4 Pyr632 FREE T4 1.05 ng/dL 01/05/2018 %Hba1C Ejr646 % HbA1c 40990-4 6.0 % 01/05/2018 %Hba1C Qmu188 Gluc Ave 126 mg/dL 01/05/2018 Cbc With [...] 30.6 pg 01/05/2018 Cbc With Differential Ord2 [place]% 10.5 % 01/05/2018 Cbc With Differential Ord2 [...] 1.27 K/ul 01/05/2018 Cbc With Differential Ord2 [place] ABS# 0.5 K/ul 01/05/2018 Cbc With Differential Ord2 Eos ABS# 0.2 K/ul 01/05/2018 Cbc With Differential Ord2 Baso ABS# 0.1 K/ul 01/05/2018 Pt Krx4157 PT 20.7 seconds 01/05/2018 Pt Uuw1214 INR 1.8 01/05/2018 Pt Xbi4206 Low Intensity - 1.5-2.0 01/05/2018 Pt Uxn8678 Mod intensity - 2.0-3.0 01/05/2018 Pt Fbn2983 Hi intensity - 3.0-4.0 01/05/2018 Tsh Ord6 TSH (3rd IS) 2.34 uIU/mL 01/05/2018 Lipid Ord30 CHOL 156 mg/dL 01/05/2018 Lipid Ord30 HDL 48.0 mg/dl 01/05/2018 Lipid Ord30 TRIG 207 mg/dL 01/05/2018 Lipid Ord30 LDL 67 mg/dL 01/05/2018 Lipid Ord30 C/HDL 3.3 Ratio 01/05/2018 Pt Sxt5656 PT 28.3 seconds 11/26/2017 Pt Iio1098 INR 2.6 11/26/2017 Pt Nyp7892 Low Intensity - 1.5-2.0 11/26/2017 Pt Csr0244 Mod intensity - 2.0-3.0 11/26/2017 Pt Xqp0775 Hi intensity - 3.0-4.0 11/26/2017 Pt Aur9399 PT 36.5 seconds 11/19/2017 Pt Tzy7518 INR 3.6 11/19/2017 Pt Rbo9106 Low Intensity - 1.5-2.0 11/19/2017 Pt Kwf2422 Mod intensity - 2.0-3.0 11/19/2017 Pt Ufg5434 Hi intensity - 3.0-4.0 11/19/2017 Pt Peu2210 PT 22.9 seconds 10/15/2017 Pt Gbm9926 INR 2.0 10/15/2017 Pt Blm1966 Low Intensity - 1.5-2.0 10/15/2017 Pt Toi9552 Mod intensity - 2.0-3.0 10/15/2017 Pt Kvv0979 Hi intensity - 3.0-4.0 10/15/2017 Pt Ful6539 PT 25.9 seconds 10/01/2017 Pt Frz2248 INR 2.4 10/01/2017 Pt Ztp2329 Low Intensity - 1.5-2.0 10/01/2017 Pt Fqx2254 Mod intensity - 2.0-3.0 10/01/2017 Pt Wlx3938 Hi intensity - 3.0-4.0 10/01/2017 Pt Sqh4950 PT 20.6 seconds 09/24/2017 Pt Vgr0692 INR 1.8 09/24/2017 Pt Zxv6497 Low Intensity - 1.5-2.0 09/24/2017 Pt Hct7061 Mod intensity - 2.0-3.0 09/24/2017 Pt Zuh6262 Hi intensity - 3.0-4.0 09/24/2017 Pt Sya0040 PT 21.0 seconds 09/15/2017 Pt Rey1732 INR 1.8 09/15/2017 Pt Luq7282 Low Intensity - 1.5-2.0 09/15/2017 Pt Ako1432 Mod intensity - 2.0-3.0 09/15/2017 Pt Gpy3160 Hi intensity - 3.0-4.0 09/15/2017 Pt Cha8268 PT 19.0 seconds 09/03/2017 Pt Ttt3093 INR 1.6 09/03/2017 Pt Anb7053 Low Intensity - 1.5-2.0 09/03/2017 Pt Qae9194 Mod intensity - 2.0-3.0 09/03/2017 Pt Ozk9057 Hi intensity - 3.0-4.0 09/03/2017 Pt Mso4457 PT 17.6 seconds 08/23/2017 Pt Nnw4780 INR 1.5 08/23/2017 Pt Qvr6181 Low Intensity - 1.5-2.0 08/23/2017 Pt Cfn8176 Mod intensity - 2.0-3.0 08/23/2017 Pt Ycg4843 Hi intensity - 3.0-4.0 08/23/2017 Pt Owj2147 PT 12.7 seconds 08/20/2017 Pt Pxo8914 INR 1.0 08/20/2017 Pt Zas4591 Low Intensity - 1.5-2.0 08/20/2017 Pt Okt0386 Mod intensity - 2.0-3.0 08/20/2017 Pt Loi6476 Hi intensity - 3.0-4.0 08/20/2017 Pt Myv7061 PT 12.9 seconds 08/17/2017 Pt Vmi0938 INR 1.0 08/17/2017 Pt Evy2742 Low Intensity - 1.5-2.0 08/17/2017 Pt Ebm0493 Mod intensity - 2.0-3.0 08/17/2017 Pt Ibc2521 Hi intensity - 3.0-4.0 08/17/2017 Pt Pgt7363 PT 18.5 seconds 08/10/2017 Pt Xtn3683 INR 1.6 08/10/2017 Pt Nak4712 Low Intensity - 1.5-2.0 08/10/2017 Pt Tvp0048 Mod intensity - 2.0-3.0 08/10/2017 Pt Noa8497 Hi intensity - 3.0-4.0 08/10/2017 Tsh Ord6 [...] 29.3 pg 05/27/2017 Cbc With Differential Ord2 [place]% 8.1 % 05/27/2017 Cbc With Differential Ord2 [...] 1.11 K/ul 05/27/2017 Cbc With Differential Ord2 [place] ABS# 0.6 K/ul 05/27/2017 Cbc With Differential Ord2 Eos ABS# 0.2 K/ul 05/27/2017 Cbc With Differential Ord2 Baso ABS# 0.1 K/ul 05/27/2017 Pt Erc2141 PT 28.2 seconds 05/27/2017 Pt Grd1116 INR 2.6 05/27/2017 Pt Eka8951 Low Intensity - 1.5-2.0 05/27/2017 Pt Dae0422 Mod intensity - 2.0-3.0 05/27/2017 Pt Mlm3872 Hi intensity - 3.0-4.0 05/27/2017 Lipid Ord30 CHOL 167 mg/dL 05/27/2017 Lipid Ord30 HDL 49.0 mg/dl 05/27/2017 Lipid Ord30 TRIG 347 mg/dL 05/27/2017 Lipid Ord30 LDL 49 mg/dL 05/27/2017 Lipid Ord30 C/HDL 3.4 Ratio 05/27/2017 Magnesium Ord90 Mag 1.4 mg/dL 05/27/2017 %Hba1C Bzj202 % HbA1c 28316-9 5.9 % 05/27/2017 %Hba1C Aza446 Gluc Ave 123 mg/dL 05/27/2017 Comp Metabolic Mbg957 NA 138 mEq/L 05/27/2017 Comp Metabolic Bto090 K 4.1 mEq/L 05/27/2017 Comp Metabolic Yha446 CL 101 mEq/L 05/27/2017 Comp Metabolic Zzn882 CO2 31.0 mEq/L 05/27/2017 Comp Metabolic Uhd515 AN ION GAP 10 05/27/2017 Comp Metabolic Hsn114 GL UCOSE 117 mg/dL 05/27/2017 Comp Metabolic Oxj155 Cr eat 0.9 mg/dL 05/27/2017 Comp Metabolic Xzh085 eG FR 62 ml/min/1.73m2 05/27 Comp Metabolic Opy361 BUN 25 mg/dL 05/27/2017 Comp Metabolic Ygm354 B/ C Ratio 26.6 Ratio 05/27/2017 Comp Metabolic Vqo266 CA LCIUM 9.5 mg/dL 05/27/2017 Comp Metabolic Max137 AL K PHOS 73 U/L 05/27/2017 Comp Metabolic Ezb721 T(SGOT) 18 U/L 05/27/2017 Comp Metabolic Zga472 AL T(SGPT) 12 U/L 05/27/2017 Comp Metabolic Vmx296 BI LI T 0.5 mg/dL 05/27/2017 Comp Metabolic She646 AL BUMIN 4.1 g/dL 05/27/2017 Comp Metabolic Urv943 TP RO 7.1 g/dL 05/27/2017 Comp Metabolic Bau788 GL OB 3.0 g/dL 05/27/2017 Comp Metabolic Fro133 A/ G Ratio 1.3 Ratio 05/27/2017 Comp Metabolic Akn716 Os mo 281 mOsmo 05/27/2017 Free T4 Qfr302 FREE T4 0.91 ng/dL 05/27/2017 Pt Wkk1649 PT 29.2 seconds 04/16/2017 Pt Wjm6820 INR 2.7 04/16/2017 Pt Kyv0386 Low Intensity - 1.5-2.0 04/16/2017 Pt Rhg2212 Mod intensity - 2.0-3.0 04/16/2017 Pt Luh0180 Hi intensity - 3.0-4.0 04/16/2017 Pt Qlk8181 PT 30.7 seconds 03/31/2017 Pt Fnf2069 INR 2.9 03/31/2017 Pt Mkd3617 Low Intensity - 1.5-2.0 03/31/2017 Pt Fer4417 Mod intensity - 2.0-3.0 03/31/2017 Pt Utz1892 Hi intensity - 3.0-4.0 03/31/2017 Pt Gkd0858 PT 21.3 seconds 03/26/2017 Pt Mbg6167 INR 1.9 03/26/2017 Pt Fbj9621 Low Intensity - 1.5-2.0 03/26/2017 Pt Nsu0584 Mod intensity - 2.0-3.0 03/26/2017 Pt Tpu0688 Hi intensity - 3.0-4.0 03/26/2017 Pt Bdt0117 PT 19.8 seconds 03/22/2017 Pt Wce4263 INR 1.7 03/22/2017 Pt Tgz8166 Low Intensity - 1.5-2.0 03/22/2017 Pt Vwi0130 Mod intensity - 2.0-3.0 03/22/2017 Pt Svs6235 Hi intensity - 3.0-4.0 03/22/2017 Pt Dyj7981 PT 15.6 seconds 03/19/2017 Pt Myg1622 INR 1.3 03/19/2017 Pt Nnx2639 Low Intensity - 1.5-2.0 03/19/2017 Pt Ews7642 Mod intensity - 2.0-3.0 03/19/2017 Pt Eqi8939 Hi intensity - 3.0-4.0 03/19/2017 Pt Edq5107 PT 13.7 seconds 03/15/2017 Pt Ijr2474 INR 1.1 03/15/2017 Pt Quc5995 Low Intensity - 1.5-2.0 03/15/2017 Pt Ivw0867 Mod intensity - 2.0-3.0 03/15/2017 Pt Tal2707 Hi intensity - 3.0-4.0 03/15/2017 Pt Cfp0778 PT 25.8 seconds 01/28/2017 Pt Xge7417 INR 2.4 01/28/2017 Pt Bvy7572 Low Intensity - 1.5-2.0 01/28/2017 Pt Jfu1054 Mod intensity - 2.0-3.0 01/28/2017 Pt Xri9108 Hi intensity - 3.0-4.0 01/28/2017 %Hba1C Itq109 % HbA1c 79902-1 6.4 % 10/23/2016 %Hba1C Qrb198 Gluc Ave 137 mg/dL 10/23/2016 Comp Metabolic Hbi602 NA 138 mEq/L 10/23/2016 Comp Metabolic Gbh147 K 3.4 mEq/L 10/23/2016 Comp Metabolic Yxm495 CL 100 mEq/L 10/23/2016 Comp Metabolic Ijb657 CO2 30.0 mEq/L 10/23/2016 Comp Metabolic Lev553 AN ION GAP 11 10/23/2016 Comp Metabolic Pdf598 GL UCOSE 139 mg/dL 10/23/2016 Comp Metabolic Tnn880 Cr eat 0.9 mg/dL 10/23/2016 Comp Metabolic Hzk939 eG FR 62 ml/min/1.73m2 10/23 Comp Metabolic Vmf218 BUN 22 mg/dL 10/23/2016 Comp Metabolic Ajr177 B/ C Ratio 23.4 Ratio 10/23/2016 Comp Metabolic Out268 CA LCIUM 8.7 mg/dL 10/23/2016 Comp Metabolic Acb730 AL K PHOS 66 U/L 10/23/2016 Comp Metabolic Vpv055 T(SGOT) 20 U/L 10/23/2016 Comp Metabolic Aet092 AL T(SGPT) 10 U/L 10/23/2016 Comp Metabolic Znt886 BI LI T 0.5 mg/dL 10/23/2016 Comp Metabolic Rik459 AL BUMIN 3.5 g/dL 10/23/2016 Comp Metabolic Prw814 TP RO 6.3 g/dL 10/23/2016 Comp Metabolic Evn900 GL OB 2.8 g/dL 10/23/2016 Comp Metabolic Eoy912 A/ G Ratio 1.3 Ratio 10/23/2016 Comp Metabolic Whk007 Os mo 281 mOsmo 10/23/2016 Pt Qjn5845 PT 26.8 seconds 10/23/2016 Pt Tmk5158 INR 2.7 10/23/2016 Pt Igf3934 Low Intensity - 1.5-2.0 10/23/2016 Pt Jqp5786 Mod intensity - 2.0-3.0 10/23/2016 Pt Dvr8070 Hi intensity - 3.0-4.0 10/23/2016 Pt Dve1278 PT 28.3 seconds 09/25/2016 Pt Kti4249 INR 2.8 09/25/2016 Pt Xci8307 Low Intensity - 1.5-2.0 09/25/2016 Pt Umf5755 Mod intensity - 2.0-3.0 09/25/2016 Pt Hbk1237 Hi intensity - 3.0-4.0 09/25/2016 Metabolic Ord15 [...] Metabolic Ord15 CALCIUM 8.8 mg/dL 09/25/2016 Pt Mrg3665 PT 30.6 seconds 09/11/2016 Pt Cwr5499 INR 3.2 09/11/2016 Pt Hat9134 Low Intensity - 1.5-2.0 09/11/2016 Pt Rua2120 Mod intensity - 2.0-3.0 09/11/2016 Pt Tjy1111 Hi intensity - 3.0-4.0 09/11/2016 Comp Metabolic Pqi029 NA 138 mEq/L 09/11/2016 Comp Metabolic Lna110 K 4.4 mEq/L 09/11/2016 Comp Metabolic Etu453 CL 103 mEq/L 09/11/2016 Comp Metabolic Iew005 CO2 31.0 mEq/L 09/11/2016 Comp Metabolic Uib109 AN ION GAP 8 09/11/2016 Comp Metabolic Jzj705 GL UCOSE 146 mg/dL 09/11/2016 Comp Metabolic Kjx836 Cr eat 1.0 mg/dL 09/11/2016 Comp Metabolic Snr821 eG FR 60 ml/min/1.73m2 09/11 Comp Metabolic Ole312 BUN 16 mg/dL 09/11/2016 Comp Metabolic Wjm807 B/ C Ratio 16.5 Ratio 09/11/2016 Comp Metabolic Knz053 CA LCIUM 8.7 mg/dL 09/11/2016 Comp Metabolic Ixt810 AL K PHOS 52 U/L 09/11/2016 Comp Metabolic Cph663 T(SGOT) 19 U/L 09/11/2016 Comp Metabolic Boj354 AL T(SGPT) 11 U/L 09/11/2016 Comp Metabolic Aze302 BI LI T 0.7 mg/dL 09/11/2016 Comp Metabolic Dgn945 AL BUMIN 3.3 g/dL 09/11/2016 Comp Metabolic Cva299 TP RO 5.8 g/dL 09/11/2016 Comp Metabolic Uey454 GL OB 2.5 g/dL 09/11/2016 Comp Metabolic Wob293 A/ G Ratio 1.3 Ratio 09/11/2016 Comp Metabolic Iob139 Os mo 280 mOsmo 09/11/2016 C-Reactive Protein Qnt Crqnt CRP 0.1 mg/dl 08/21/2016 Comp Metabolic Xra002 NA 139 mEq/L 08/21/2016 Comp Metabolic Brv147 K 4.1 mEq/L 08/21/2016 Comp Metabolic Qjx129 CL 102 mEq/L 08/21/2016 Comp Metabolic Lhl663 CO2 30.0 mEq/L 08/21/2016 Comp Metabolic Dfm978 AN ION GAP 11 08/21/2016 Comp Metabolic Yje906 GL UCOSE 148 mg/dL 08/21/2016 Comp Metabolic Fzj872 Cr eat 1.0 mg/dL 08/21/2016 Comp Metabolic Wuk194 eG FR 55 ml/min/1.73m2 08/21 Comp Metabolic Wfn670 BUN 21 mg/dL 08/21/2016 Comp Metabolic Edo934 B/ C Ratio 20.2 Ratio 08/21/2016 Comp Metabolic Tvq769 CA LCIUM 9.4 mg/dL 08/21/2016 Comp Metabolic Slv869 AL K PHOS 63 U/L 08/21/2016 Comp Metabolic Gql345 T(SGOT) 23 U/L 08/21/2016 Comp Metabolic Ewe135 AL T(SGPT) 16 U/L 08/21/2016 Comp Metabolic Cfi300 BI LI T 0.6 mg/dL 08/21/2016 Comp Metabolic Gnm765 AL BUMIN 3.9 g/dL 08/21/2016 Comp Metabolic Gfr677 TP RO 6.8 g/dL 08/21/2016 Comp Metabolic Ngi123 GL OB 2.9 g/dL 08/21/2016 Comp Metabolic Yld736 A/ G Ratio 1.4 Ratio 08/21/2016 Comp Metabolic Yqn549 Os mo 283 mOsmo 08/21/2016 Sed Rate Ord21 ESR 16 mm/hr 08/21/2016 Pt Bir0647 PT 27.2 seconds 08/21/2016 Pt Iil1992 INR 2.7 08/21/2016 Pt Vbt3510 Low Intensity - 1.5-2.0 08/21/2016 Pt Uwj8632 Mod intensity - 2.0-3.0 08/21/2016 Pt Gie3362 Hi intensity - 3.0-4.0 08/21/2016 Magnesium Ord90 Mag 1.9 mg/dL 08/21/2016 Pt Qsa6023 PT 25.9 seconds 06/17/2016 Pt Huk1200 INR 2.5 06/17/2016 Pt Eod1109 Low Intensity - 1.5-2.0 06/17/2016 Pt Tqr1602 Mod intensity - 2.0-3.0 06/17/2016 Pt Fur3248 Hi intensity - 3.0-4.0 06/17/2016 Tsh Ord6 hTSH II 2.13 uIU/mL 06/08/2016 Free T4 Lcz751 FREE T4 0.79 ng/dL 06/08/2016 Cbc With [...] 80.8 fl 06/08/2016 Cbc With Differential Ord2 [place]% 12.0 % 06/08/2016 Cbc With Differential Ord2 [...] 1.40 K/ul 06/08/2016 Cbc With Differential Ord2 [place] ABS# 0.7 K/ul 06/08/2016 Cbc With Differential Ord2 Eos ABS# 0.3 K/ul 06/08/2016 Cbc With Differential Ord2 Baso ABS# 0.1 K/ul 06/08/2016 %Hba1C Eir616 % HbA1c 15703-6 6.2 % 06/08/2016 %Hba1C Nut888 Gluc Ave 131 mg/dL 06/08/2016 Comp Metabolic Cez401 NA 138 mEq/L 06/08/2016 Comp Metabolic Xqj004 K 3.9 mEq/L 06/08/2016 Comp Metabolic Nna935 CL 105 mEq/L 06/08/2016 Comp Metabolic Vdv878 CO2 27.0 mEq/L 06/08/2016 Comp Metabolic Goh684 AN ION GAP 10 06/08/2016 Comp Metabolic Aky616 GL UCOSE 127 mg/dL 06/08/2016 Comp Metabolic Bwy797 Cr eat 1.0 mg/dL 06/08/2016 Comp Metabolic Put439 eG FR 59 ml/min/1.73m2 06/08 Comp Metabolic Lsr244 BUN 19 mg/dL 06/08/2016 Comp Metabolic Aum143 B/ C Ratio 19.4 Ratio 06/08/2016 Comp Metabolic Tti643 CA LCIUM 9.2 mg/dL 06/08/2016 Comp Metabolic Rmm384 AL K PHOS 77 U/L 06/08/2016 Comp Metabolic Bvg135 T(SGOT) 19 U/L 06/08/2016 Comp Metabolic Fky029 AL T(SGPT) 13 U/L 06/08/2016 Comp Metabolic Xfe905 BI LI T 0.5 mg/dL 06/08/2016 Comp Metabolic Jza702 AL BUMIN 3.8 g/dL 06/08/2016 Comp Metabolic Rsd066 TP RO 6.6 g/dL 06/08/2016 Comp Metabolic Bqi517 GL OB 2.8 g/dL 06/08/2016 Comp Metabolic Ozt250 A/ G Ratio 1.4 Ratio 06/08/2016 Comp Metabolic Mxw242 Os mo 280 mOsmo 06/08/2016 Pt Ify0823 PT 36.1 seconds 06/08/2016 Pt Pat9940 INR 3.9 06/08/2016 Pt Ibh4427 Low Intensity - 1.5-2.0 06/08/2016 Pt Tqm8964 Mod intensity - 2.0-3.0 06/08/2016 Pt Zbq2707 Hi intensity - 3.0-4.0 06/08/2016 Lipid Ord30 CHOL 149 mg/dL 06/08/2016 Lipid Ord30 HDL 46.0 mg/dl 06/08/2016 Lipid Ord30 TRIG 279 mg/dL 06/08/2016 Lipid Ord30 LDL 47 mg/dL 06/08/2016 Lipid Ord30 C/HDL 3.2 Ratio 06/08/2016 Pt Jcj0890 PT 30.9 seconds 02/12/2016 Pt Bfh6348 INR 3.2 02/12/2016 Pt Wiy0862 Low Intensity - 1.5-2.0 02/12/2016 Pt Wbk0504 Mod intensity - 2.0-3.0 02/12/2016 Pt Zbr4256 Hi intensity - 3.0-4.0 02/12/2016 Free T4 Grx036 FREE T4 1.24 ng/dL 09/27/2015 %Hba1C Xqx461 % HbA1c 32350-8 6.4 % 09/27/2015 %Hba1C Xdf523 Gluc Ave 137 mg/dL 09/27/2015 Tsh Ord6 hTSH II 0.37 uIU/mL 09/27/2015 Pt Dcl0026 PT 26.2 seconds 09/27/2015 Pt Sey8517 INR 2.5 09/27/2015 Pt Yuh6744 Low Intensity - 1.5-2.0 09/27/2015 Pt Jkk3450 Mod intensity - 2.0-3.0 09/27/2015 Pt Cwa6339 Hi intensity - 3.0-4.0 09/27/2015 Pt Fhs6049 PT 27.6 seconds 2015 Pt Bdj7827 INR 2.7 2015 Pt Kxs2143 Low Intensity - 1.5-2.0 2015 Pt Jup7432 Mod intensity - 2.0-3.0 2015 Pt Quy7531 Hi intensity - 3.0-4.0 2015 %Hba1C Sod815 % HbA1c 63133-6 6.1 % 06/11/2015 %Hba1C Vqk720 Gluc Ave 128 mg/dL 06/11/2015 Cbc With [...] Ord2 RDW 15.8 % 06/10/2015 Comp Metabolic Rzr446 NA 139 mEq/L 06/10/2015 Comp Metabolic Fce639 K 4.1 mEq/L 06/10/2015 Comp Metabolic Kty797 CL 105 mEq/L 06/10/2015 Comp Metabolic Pvy459 CO2 27.0 mEq/L 06/10/2015 Comp Metabolic Bjf659 AN ION GAP 11 06/10/2015 Comp Metabolic Mtf137 GL UCOSE 127 mg/dL 06/10/2015 Comp Metabolic Fxr125 Cr eat 1.0 mg/dL 06/10/2015 Comp Metabolic Bxa303 eG FR 59 ml/min/1.73m2 06/10 Comp Metabolic Wwn169 BUN 21 mg/dL 06/10/2015 Comp Metabolic Gew734 B/ C Ratio 21.2 Ratio 06/10/2015 Comp Metabolic Kqo141 CA LCIUM 9.2 mg/dL 06/10/2015 Comp Metabolic Tgy089 AL K PHOS 87 U/L 06/10/2015 Comp Metabolic Dki891 T(SGOT) 20 U/L 06/10/2015 Comp Metabolic Qnb270 AL T(SGPT) 17 U/L 06/10/2015 Comp Metabolic Eyj165 BI LI T 0.4 mg/dL 06/10/2015 Comp Metabolic Tuu455 AL BUMIN 4.1 g/dL 06/10/2015 Comp Metabolic Foh153 TP RO 7.2 g/dL 06/10/2015 Comp Metabolic Cud486 GL OB 3.1 g/dL 06/10/2015 Comp Metabolic Ovr322 A/ G Ratio 1.3 Ratio 06/10/2015 Comp Metabolic Iue427 Os mo 282 mOsmo 06/10/2015 Tsh Ord6 hTSH II 0.86 uIU/mL 06/10/2015 Lipid Ord30 CHOL 161 mg/dL 06/10/2015 Lipid Ord30 HDL 49.0 mg/dl 06/10/2015 Lipid Ord30 TRIG 208 mg/dL 06/10/2015 Lipid Ord30 LDL 70 mg/dL 06/10/2015 Lipid Ord30 C/HDL 3.3 Ratio 06/10/2015 Pt Umt9632 PT 25.0 seconds 04/09/2015 Pt Iqq3516 INR 2.4 04/09/2015 Pt Lji1425 Low Intensity - 1.5-2.0 04/09/2015 Pt Iwj6905 Mod intensity - 2.0-3.0 04/09/2015 Pt Ysu8664 Hi intensity - 3.0-4.0 04/09/2015 Free T4 Zwl702 FREE T4 1.05 ng/dL 01/22/2015 Pt Bcq6036 PT 27.2 seconds 01/22/2015 Pt Fji0395 INR 2.6 01/22/2015 Pt Wsx0017 Low Intensity - 1.5-2.0 01/22/2015 Pt Mbq0602 Mod intensity - 2.0-3.0 01/22/2015 Pt Jow4818 Hi intensity - 3.0-4.0 01/22/2015 Cbc With [...] Differential Ord2 RDW 15.2 % 01/22/2015 B12 Htb407 B12 402.00 pg/ml 01/22/2015 Tsh Ord6 hTSH II 0.65 uIU/mL 01/22/2015 Lipid Ord30 CHOL 166 mg/dL 01/22/2015 Lipid Ord30 HDL 48.0 mg/dl 01/22/2015 Lipid Ord30 TRIG 264 mg/dL 01/22/2015 Lipid Ord30 LDL 65 mg/dL 01/22/2015 Lipid Ord30 C/HDL 3.5 Ratio 01/22/2015 Comp Metabolic Zph247 NA 138 mEq/L 01/22/2015 Comp Metabolic Hdz720 K 4.1 mEq/L 01/22/2015 Comp Metabolic Lal945 CL 104 mEq/L 01/22/2015 Comp Metabolic Dfz391 CO2 29.0 mEq/L 01/22/2015 Comp Metabolic Qkt067 AN ION GAP 9 01/22/2015 Comp Metabolic Edr381 GL UCOSE 106 mg/dL 01/22/2015 Comp Metabolic Ldx282 Cr eat 0.9 mg/dL 01/22/2015 Comp Metabolic Etx971 eG FR 63 ml/min/1.73m2 01/22 Comp Metabolic Ubg227 BUN 21 mg/dL 01/22/2015 Comp Metabolic Uxb985 B/ C Ratio 22.3 Ratio 01/22/2015 Comp Metabolic Rdm286 CA LCIUM 9.4 mg/dL 01/22/2015 Comp Metabolic Kyd495 AL K PHOS 83 U/L 01/22/2015 Comp Metabolic Lcs672 T(SGOT) 23 U/L 01/22/2015 Comp Metabolic Igy176 AL T(SGPT) 18 U/L 01/22/2015 Comp Metabolic Pel413 BI LI T 0.8 mg/dL 01/22/2015 Comp Metabolic Zsa342 AL BUMIN 4.2 g/dL 01/22/2015 Comp Metabolic Wrq808 TP RO 7.3 g/dL 01/22/2015 Comp Metabolic Hvt986 GL OB 3.1 g/dL 01/22/2015 Comp Metabolic Utu721 A/ G Ratio 1.4 Ratio 01/22/2015 Comp Metabolic Hjq170 Os mo 279 mOsmo 01/22/2015 Review of [...] Date URINALYSIS NONAUTO W /O SCOPE CPT-4: 87540 03/05/2017 Vital Signs Date Vital 04/14/2018 Blood Pressure 1: 116/78 Code: 8480-6 BMI: 41.6 Code: 47897-4 Heart Rate 1: 72 bpm Height: 5'1" SpO2: 98% Weight: 220 lbs 01/18/2018 Blood Pressure 1: 132/74 Code: 8480-6 BMI: 43.5 Code: 39960-1 Heart Rate 1: 70 bpm Height: 5'1" SpO2: 97% Weight: 230 lbs 01/04/2018 Blood Pressure 1: 134/76 Code: 8480-6 BMI: 42.7 Code: 79046-7 Heart Rate 1: 83 bpm Height: 5'1" SpO2: 98% Weight: 226 lbs 09/23/2017 Blood Pressure 1: 124/76 Code: 8480-6 BMI: 42.3 Code: 17448-2 Heart Rate 1: 94 bpm Height: 5'1" SpO2: 96% Weight: 224 lbs 05/27/2017 Blood Pressure 1: 146/78 Code: 8480-6 BMI: 41.4 Code: 75650-0 Heart Rate 1: 85 bpm Height: 5'1" SpO2: 98% Weight: 219 lbs 02/24/2017 Blood Pressure 1: 138/66 Code: 8480-6 BMI: 41.4 Code: 32545-8 Heart Rate 1: 78 bpm Height: 5'1" SpO2: 97% Weight: 219 lbs 11/02/2016 Blood Pressure 1: 144/72 Code: 8480-6 BMI: 46.1 Code: 40758-8 Heart Rate 1: 78 bpm Height: 5'1" SpO2: 98% Weight: 244 lbs 09/30/2016 Blood Pressure 1: 130/76 Code: 8480-6 BMI: 45.0 Code: 00395-0 Heart Rate 1: 86 bpm Height: 5'1" SpO2: 98% Weight: 238 lbs 09/10/2016 Blood Pressure 1: 136/68 Code: 8480-6 BMI: 46.3 Code: 06961-1 Heart Rate 1: 83 bpm Height: 5'1" SpO2: 98% Weight: 245 lbs 08/20/2016 Blood Pressure 1: 142/78 Code: 8480-6 BMI: 45.3 Code: 99953-1 Heart Rate 1: 84 bpm Height: 5'1" SpO2: 99% Weight: 240 lbs 06/08/2016 Blood Pressure 1: 134/76 Code: 8480-6 BMI: 44.2 Code: 95778-2 Heart Rate 1: 86 bpm Height: 5'1" SpO2: 96% Weight: 234 lbs 04/02/2016 Blood Pressure 1: 142/70 Code: 8480-6 BMI: 44.6 Code: 27206-9 Heart Rate 1: 78 bpm Height: 5'1" SpO2: 97% Weight: 236 lbs 01/14/2016 Blood Pressure 1: 146/72 Code: 8480-6 BMI: 44.2 Code: 69240-9 Heart Rate 1: 86 bpm Height: 5'1" SpO2: 96% Weight: 234 lbs 10/02/2015 Blood Pressure 1: 158/76 Code: 8480-6 BMI: 44.2 Code: 39298-0 Heart Rate 1: 67 bpm Height: 5'1" SpO2: 97% Weight: 234 lbs 07/15/2015 Blood Pressure 1: 200/90 Code: 8480-6 Blood Pressure 1: 148/78 Code: 8480-6 BMI: 44.0 Code: 17594-4 Heart Rate 1: 89 bpm Height: 5'1" SpO2: 97% Weight: 233 lbs 06/10/2015 Blood Pressure 1: 140/82 Code: 8480-6 BMI: 44.0 Code: 57560-1 Heart Rate 1: 78 bpm Height: 5'1" [...] Encounters Encounter Performer Loca tion Codes Date ([id number]) [id number] EST. P ATIENT, LEVEL IV Diagnosis: Essential (primary) hypertension[ICD10: I10] Diagnosis: Hypothyroidism, unspecified[ICD10: E03.9] Diagnosis: Impaired fasting glucose[ICD10: R73.01] Diagnosis: jail (current) use of anticoagulants[ICD10: Z79.01] Edna Almanza MD, [facility] CPT-4: 39481 04/14/2018 ([id number]) 01225 EST. P ATIENT, LEVEL III Diagnosis: Localized edema[ICD10: R60.0] Diagnosis: Gastro-esophageal reflux disease without esophagitis[ICD10: K21.9] Edna Almanza MD, [facility] CPT-4: 67864 01/18/2018 [id number]) [id number] EST. P ATIENT, LEVEL IV Diagnosis: Gastro-esophageal reflux disease without esophagitis[ICD10: K21.9] Diagnosis: Localized edema[ICD10: R60.0] Diagnosis: Essential (primary) hypertension[ICD10: I10] Diagnosis: Hypothyroidism, unspecified[ICD10: E03.9] Diagnosis: Impaired fasting glucose[ICD10: R73.01] Edan Almanza MD, [facility] CPT-4: 13676 01/04/2018 ([id number]) 13924 EST. P ATIENT, LEVEL IV Diagnosis: Essential (primary) hypertension[ICD10: I10] Diagnosis: jail (current) use of anticoagulants[ICD10: Z79.01] Diagnosis: Incisional hernia without obstruction or gangrene[ICD10: K43.2] Diagnosis: Right lower quadrant pain[ICD10: R10.31] Sarai Almanza MD, [facility] CPT-4: 05309 09/23/2017 ([id number]) 71213 EST. P ATIENT, LEVEL IV Diagnosis: Essential (primary) hypertension[ICD10: I10] Diagnosis: Mixed hyperlipidemia[ICD10: E78.2] Diagnosis: Hypothyroidism, unspecified[ICD10: E03.9] Diagnosis: Impaired fasting glucose[ICD10: R73.01] Diagnosis: jail (current) use of anticoagulants[ICD10: Z79.01] Edna Almanza MD, [facility] CPT-4: 43600 05/27/2017 [id number] EST. PATIENT, LEVEL III Diagnosis: Pain in right hip[ICD10: M25.551] Nata Almanza MD, [facility] CPT-4: 78035 02/24/2017 ([id number]) 16087 EST. P ATIENT, LEVEL IV Diagnosis: Essential (primary) hypertension[ICD10: I10] Diagnosis: Localized edema[ICD10: R60.0] Diagnosis: Pain in right hip[ICD10: M25.551] Sarai Almanza MD, [facility] CPT-4: 45312 11/02/2016 ([id number]) 48171 EST. P ATIENT, LEVEL IV Diagnosis: Essential (primary) hypertension[ICD10: I10] Diagnosis: Localized edema[ICD10: R60.0] Sarai Almanza MD, [facility] CPT-4: 44465 09/30/2016 [id number] EST. PATIENT, LEVEL IV Diagnosis: Localized edema[ICD10: R60.0] Diagnosis: Pain in joints of left hand[ICD10: M25.542] Diagnosis: Pain in joints of right hand[ICD10: M25.541] Nata Almanza MD, [facility] CPT-4: 01925 09/10/2016 [id number] EST. PATIENT, LEVEL IV Diagnosis: Localized edema[ICD10: R60.0] Diagnosis: Pain in joints of left hand[ICD10: M25.542] Diagnosis: Pain in joints of right hand[ICD10: M25.541] Diagnosis: Other fatigue[ICD10: R53.83] Nata Almanza MD, [facility] CPT-4: 57309 08/20/2016 03594 EST. PATIENT, LEVEL IV Diagnosis: Essential (primary) hypertension[ICD10: I10] Diagnosis: Other fci (current) drug therapy[ICD10: Z79.899] Diagnosis: Tinnitus, bilateral[ICD10: H93.13] Nata Almanza MD, [facility] CPT-4: 40728 06/08/2016 [id number] EST. PATIENT, LEVEL IV Diagnosis: Other allergic rhinitis[ICD10: J30.89] Diagnosis: Acute laryngopharyngitis[ICD10: J06.0] Nata Almanza MD, [facility] CPT-4: 27759 04/02/2016 62296 EST. PATIENT, LEVEL IV Diagnosis: Left upper quadrant pain[ICD10: R10.12] Nata Almanza MD, [facility] CPT-4: 15636 01/14/2016 35734 EST. PATIENT, LEVEL IV Diagnosis: Pain in left shoulder[ICD10: M25.512] Diagnosis: Body mass index (BMI) 40.0-44.9, adult[ICD10: Z68.41] Nata Almanza MD, [facility] CPT-4: 88990 10/02/2015 42986 EST. 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] Edna Almanza MD, [facility] CPT-4: 16166 06/10/2015 ([id number]) OFFICE VISI T, NEW - LEVEL 4 Diagnosis: ESSENTIAL HYPERTENSION[ICD9: 401.9] Diagnosis: HYPOTHYROIDISM[ICD9: 244.9] Diagnosis: ENCNTR LONG-RX USE NEC[ICD9: V58.69] Diagnosis: HYPERLIPIDEMIA[ICD9: 272.4] Diagnosis: Vitamin B12 deficiency[ICD9: 266.2] Diagnosis: Status post gastric surgery[ICD9: V45.89] Diagnosis: Snoring[ICD9: 786.09] [facility] CPT-4: 38659 01/22/2015 Plan of Care Planned Activity Notes [...] Hgb A1C 04/14/2018 Appointment: Edna Douglas WPtel: [address] [place] [address] (15 min) Moderate 04/14/2018 Patient Education: Patient [...] to further attempt to reduce peripheral edema. IMIL-ddgnibzg-mxzjswdz prilosec BID and carafate QID -discussed low spice, low acidic diet 01/18/2018 Appointment: Edna Douglas WPtel: [address] [place] [phone] (15 min) Moderate 01/18/2018 Patient Education: Patient [...] of control. 01/04/2018 Appointment: Edna Douglas WPtel: [address] [place], [place] [phone] (30 min) Complex 01/04/2018 Patient Education: Patient Medication Summary Completed 01/04/2018 Care Plan: SCREENINGMAMMOGRAPHYDIGITAL LOINC : 15511-2 Pending 01/04/2018 Visit Plan: Abdominal hernia - not able to be taken to surgery by local providers and pt has been seen at [facility] and that surgeon felt like [...] home. 09/23/2017 Appointment: [facility] [phone] [facility] (15 min) Moderate 09/23/2017 Patient [...] medications. 05/27/2017 Appointment: [phone] [phone] (30 min) Complex 05/27/2017 Patient Education: Patient Medication Summary Completed 05/27/2017 Patient Education: Obesity Completed 05/27/2017 Appointment: Lab Draw 03/05/2017 Patient Education: Patient Medication Summary Completed 03/05/2017 Visit Plan: Surgical clearance for right hip replacement - Dr. Almnaza in to evaluate pt - pt is [...] [place]. 02/24/2017 Appointment: Nata Hsu WPtel[facility] [phone] [facility] (30 min) Complex 02/24/2017 Patient Education: Patient [...] [place]. 11/02/2016 Appointment: [facility] [phone] [facility] [place] (15 min) Moderate 11/02/2016 Patient Education: [...] peripheral edema. 09/30/2016 Appointment: Sarai Almanza WPtel: [address] [place] [phone] (15 min) Moderate 09/30/2016 Patient Education: Patient [...] edema. 09/10/2016 Appointment: Nata Hsu WPtel: [facility] (30 min) Complex 09/10/2016 Patient Education: [...] edema. 08/20/2016 Appointment: Nata Hsu WPtel: [facility] (30 min) Complex 08/20/2016 Patient Education: Patient Medication Summary Completed 08/20/2016 Referral: Otf Lee [id number] Referral Initiated 07/02/2016 Visit Plan: Chronic Anticoagulant [...] 06/08/2016 Care Plan: Referral Order SNOMED-CT : [id number] Pending 06/08/2016 Visit Plan: URI - Pt [...] spray. 04/02/2016 Appointment: Nata Hsu WPtel: [phone] [facility] [place] (30 min) Complex 04/02/2016 Patient Education: [...] acute pain 01/14/2016 Appointment: Edna Douglas WPtel: [phone] [phone] [place] (30 min) Complex 01/14/2016 Patient Education: Patient Medication Summary Completed 01/14/2016 Patient Education: Obesity Completed 01/14/2016 Care Plan: BMI Above normal followup DAVID F-MGMT EDUC & TRAIN 1 PT Pending 10/24/2015 Care Plan: X-RAY EXAM OF SHOULDER LOINC : 56228-3 Pending 10/24/2015 Visit Plan: Left shoulder pain [...] Douglas [facility]Ptel[facility] [phone] [phone] (15 min) Moderate 10/02/2015 Patient Education: Patient [...] Completed 06/10/2015 Appointment: Sarai Almanza WPtel: [facility] (15 min) Moderate 04/22/2015 Visit Plan: Hypertension [...] to medications. 01/22/2015 Appointment: Sarai Almanza WPtel: [phone] [facility] [place] (S) New Patient 01/22/2015 Patient Education: Patient Medication Summary Completed 01/22/2015 Patient Education: Hypertension Completed 01/22/2015 Referral: Otf Lee [address] Referral Initiated Instructions Comment . Chronic Anticoagul [...] providers and pt has been seen at [facility] and that surgeon felt like Kat would be better served by Dr. Betancur at [facility]. I have recommended a [...] to further attempt to reduce peripheral edema. ASAU-unymejia-jyyssnhx prilosec BID and carafate QID -discussed low [...]
--- OUTSIDE RECORDS SUMMARY | 2020-01-16 23:53 | XMS REPORT | CCD ---
Author Author Kat Almanza Organization Sarai Almanza MD, [facility] Address [address] [place] [address] Phone Care Team Providers Care Cemetery Counselor Name Role Phone PP Unavailable CCM Unavailable Summary Purpose Interface Exchange Insurance Providers Payer name Policy type / Coverage type Covered republican ID Effective Begin Date Effective End Date WPS Medicare Part B Medicare Part B [id number] 2017 Unknown [employer] [place] Medicare Part B [id number] 2017 Unknown Family history Father Diagnosis Age At Onset Hyperlipidemia Unknown Heart Attack Unknown Mother Diagnosis Age At Onset Arthritis Unknown Social History Social History Element Codes Description Effective Dates Marital status Unknown M arried Nathan 09/30/2016 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 Number of children Unknown 3 01/22/[address]: 247143845 Never smoker 01/22/[address]: 602268584 Never drinks alcohol 01/22/2015 Allergies, Adverse Reactions, [...] 780.79 ICD-10: R53.83 Active 08/20/2016 Unknown 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 ICD-9: 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.69 ICD-10: [...] cose ICD-9: 790.21 ICD-10: R73.01 05/27/2017 Active emt intermediate (current) use of anticoagulants ICD-9: V58.61 [...] ICD-9: 780.79 ICD-10: R53.83 08/20/2016 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 04/18/2018 10/14/2018 Ac tive Generic For:ZYLOPRIM 300 MG TABLET 03/22 9:13:47 AM Lasix 20 mg tablet RxNorm: 040052 TAKE ONE TABLET BY MOUTH DAILY 04/18/2018 08/15/2018 Ac tive Generic For:LASIX 20MG 04/18/2018 9:13: 50 AM Carafate 1 gram tablet RxNorm: 967875 TAKE ONE TABLET BY MOUTH BEFORE MEALS AN D AT BEDTIME 04/18/2018 05/17/2018 Inactive Generic For:CARAFATE 1GM 1 9:32:51 AM Coumadin 5 mg tablet RxNorm: 544282 TAKE 1 TABLET BY MOUTH DIRECTED 03/21/2018 09/16/2018 Ac tive Generic For:COUMADIN 5MG TAB 03/21/2018 9:13:00 AM Carafate 1 gram tablet RxNorm: 711026 TAKE ONE TABLET BY MOUTH BEFORE MEALS AN D AT BEDTIME 03/21/2018 04/17/2018 Inactive Generic For:CARAFATE 1GM 1 9:14:24 AM Carafate 1 gram tablet RxNorm: 561076 1 Tablet(s) PO AC & HS 02/17/2018 03/20/2018 Inactive atenolol 100 mg tablet RxNorm: 073404 1 Tablet(s) PO daily 02/04/2018 09/01/2018 Active atenolol 50 mg tablet RxNorm: 190724 1 Tablet(s) PO daily 02/03/2018 02/03/2018 Inactive omeprazole 20 mg cap sean,delayed release RxNorm: 597574 1 Capsule(s) BID 01/21/2018 01/15/2019 Ac tive Generic For:PRILOSEC 20MG 07/22/2017 8:5 8:20 AM Carafate 1 gram tablet RxNorm: 714066 1 Tablet(s) PO AC & HS 01/21/2018 02/16/2018 Inactive Carafate 1 gram tablet RxNorm: 512990 1 Tablet(s) PO AC & HS 01/18/2018 01/20/2018 Inactive Carafate 1 gram tablet RxNorm: 340179 1 Tablet(s) PO AC & HS 01/18/2018 02/27/2018 Inactive Carafate 1 gram tablet RxNorm: 327951 1 Tablet(s) PO AC & HS TAKE ONE TABLET B Y MOUTH TWICE DAILY 01/18/2018 05/17/2018 Inactive Generic For:CARAFATE 1GM 0 12/20/2017 9:10:56 AM omeprazole 20 mg cap sean,delayed release RxNorm: 318052 Capsule(s) TAKE 1 CAP SEAN BY MOUTH EVERY DAY 01/17/2018 01/20/2018 Inactive Generic For:PRILOSEC 20MG 0 07/22/2017 8:58:20 AM omeprazole 20 mg cap sean,delayed release RxNorm: 255113 Capsule(s) TAKE 1 CAP SEAN BY MOUTH EVERY DAY 01/14/2018 01/16/2018 Inactive Generic For:PRILOSEC 20MG 07/22/2017 8:58:20 AM clonazepam 0.5 mg ta blet RxNorm: 246782 1 Tablet(s) PO BID 01/07/2018 06/05/2018 Active Plavix 75 mg tablet RxNorm: 104375 1 Tablet(s) PO daily 01/07/2018 07/05/2018 Active Carafate 1 gram tablet RxNorm: 227938 1 Tablet(s) PO AC & HS 01/04/2018 01/17/2018 Inactive sodium bicarbonate 6 50 mg tablet RxNorm: 964348 TAKE 2 TABLETS BY JAVON TWICE DAILY 12/20/2017 06/17/2018 Ac tive 12/20/2017 9:10:59 AM Lasix 20 mg tablet RxNorm: 523813 TAKE ONE TABLET BY MOUTH DAILY 12/20/2017 04/17/2018 In active Generic For:LASIX 20MG 12/20/2017 9:11: 03 AM Carafate 1 gram tablet RxNorm: 978813 TAKE ONE TABLET BY MOUTH TWICE DAILY 12/20/2017 01/17/2018 In active Generic For:CARAFATE 1GM 12/20/2017 9:1 0:56 AM Synthroid 137 mcg ta blet RxNorm: 590669 TAKE 1 TABLET BY MOUT H ONCE DAILY 11/19/2017 05/17/2018 In active Generic For:SYNTHROID 137MCG TAB 2017 8:58:04 AM Detrol LA 4 mg capsu le,extended release RxNorm: 564080 TAKE 1 CAPSULE BY JAVON TH ONCE DAILY 10/20/2017 04/13/2018 Inactive Generic For:DETROL LA 4MG C AP 10/20/2017 9:01:56 AM allopurinol 300 mg t ablet RxNorm: 527596 TAKE 1 TABLET BY MOUT H ONCE DAILY. 10/20/2017 04/17/2018 In active Generic For:ZYLOPRIM 300 MG TABLET 07/2017 9:01:59 AM Coumadin 5 mg tablet RxNorm: 322778 1 Tablet(s) PO UD 10/01/2017 03/20/2018 Inactive cyclobenzaprine 5 mg tablet RxNorm: 072620 1 Tablet(s) PO TID as needed myscle spasm 09/23/2017 10/12/2017 Inactive Lipitor 40 mg tablet RxNorm: 018623 TAKE 1 TABLET BY MOUTH ONCE DAILY 09/20/2017 09/14/2018 Ac tive Generic For:LIPITOR 40MG 09/20/2017 8:5 6:04 AM atenolol 100 mg tablet RxNorm: 443537 1 Tablet(s) PO daily 08/30/2017 02/03/2018 Inactive atenolol 50 mg tablet RxNorm: 019149 1 Tablet(s) PO daily 08/30/2017 08/30/2017 Inactive Lovenox 30 mg/0.3 mL subcutaneous syringe RxNorm: 107038 0.3 Milliliter(s) SQ Q12H 08/24/2017 09/06/2017 In active Lasix 20 mg tablet RxNorm: 491333 TAKE ONE TABLET BY MOUTH DAILY 08/23/2017 12/19/2017 In active Generic For:LASIX 20MG 08/21/2017 9:04: 27 AM Synthroid 137 mcg ta blet RxNorm: 153228 TAKE 1 TABLET BY MOUT H ONCE DAILY 08/23/2017 11/18/2017 In active Generic For:SYNTHROID 137MCG TAB 2017 9:04:30 AM Lovenox 30 mg/0.3 mL subcutaneous syringe RxNorm: 551187 0.3 Milliliter(s) SQ Q12H 08/10/2017 08/23/2017 In active clonazepam 0.5 mg ta blet RxNorm: 067496 1 Tablet(s) PO BID 08/04/2017 12/30/2017 Inactive Coumadin 4 mg tablet RxNorm: 537541 TAKE 1 TABLET BY MOUTH THREE TIMES PER W KENAITZE (WEDNESDAY, WEDNESDAY AND WEDNESDAY) 07/22/2017 02/16/2018 Inactive Generic For:COUMADIN 4MG 07/22/2017 8:58:26 AM Coumadin 4 mg tablet RxNorm: 959922 TAKE 1 TABLET BY MOUTH THREE TIMES PER W KENAITZE (WEDNESDAY, WEDNESDAY AND WEDNESDAY) 07/22/2017 02/16/2018 Inactive Generic For:COUMADIN 4MG 07/22/2017 8:58:26 AM omeprazole 20 mg cap sean,delayed release RxNorm: 220669 TAKE 1 CAPSULE BY JAVON TH EVERY DAY 07/22/2017 01/13/2018 Inactive Generic For:PRILOSEC 20MG 07/22/2017 8: 58:20 AM venlafaxine ER 75 mg capsule,extended release 24 hr RxNorm: 329876 TAKE 1 CAPSULE BY MOUTH ONCE DAILY 06/22/2017 06/16/2018 Active Generic For:*EFFEXOR XR 75MG 06/19/2017 12:23:45 PM sodium bicarbonate 6 50 mg tablet RxNorm: 227623 TAKE 2 TABLETS BY JAVON TH TWICE DAILY 06/22/2017 12/18/2017 In active 06/19/2017 12:23:30 PM Coumadin 5 mg tablet RxNorm: 383959 1 Tablet(s) PO UD 06/01/2017 09/30/2017 Inactive Keflex 500 mg capsule RxNorm: 640707 1 Capsule(s) PO TID 05/27/2017 06/02/2017 Inactive spironolactone 25 mg tablet RxNorm: 212800 1 Tablet(s) PO daily 05/24/2017 05/18/2018 Inactive Synthroid 137 mcg ta blet RxNorm: 055421 TAKE 1 TABLET BY MOUT H ONCE DAILY 05/24/2017 08/21/2017 In active Generic For:SYNTHROID 137MCG TAB 2016 8:55:59 AM Carafate 1 gram tablet RxNorm: 682975 TAKE ONE TABLET BY MOUTH TWICE DAILY 05/24/2017 12/19/2017 In active Generic For:CARAFATE 1GM 05/24/2017 8:5 5:54 AM Detrol LA 4 mg capsu le,extended release RxNorm: 097926 1 Capsule(s) PO daily TAKE 1 CAPSULE BY MOUTH ONCE DAILY 05/10/2017 10/19/2017 Inactive Generic For:DETROL LA 4MG CAP 02/19/2017 2:36:00 PM Lasix 20 mg tablet RxNorm: 642195 TAKE ONE TABLET BY MOUTH DAILY 04/23/2017 08/20/2017 In active Generic For:LASIX 20MG 04/23/2017 9:04: 01 AM Coumadin 4 mg tablet RxNorm: 799726 TAKE 1 TABLET BY MOUTH THREE TIMES PER W KENAITZE (WEDNESDAY, WEDNESDAY AND WEDNESDAY) 04/23/2017 07/21/2017 Inactive Generic For:COUMADIN 4MG 04/23/2017 9:04:05 AM allopurinol 300 mg t ablet RxNorm: 350804 TAKE 1 TABLET BY MOUT H ONCE DAILY. 04/23/2017 10/19/2017 In active Generic For:ZYLOPRIM 300 MG TABLET 08/2016 9:03:57 AM potassium chloride 2 0 mEq/15 mL oral liquid RxNorm: 936329 Milliliter(s) 30 Milliliter(s) (40mEq) PO daily 03/24/2017 07/21/2017 Inactive Lovenox 30 mg/0.3 mL subcutaneous syringe RxNorm: 973007 0.3 Milliliter(s) SQ Q12H 03/22/2017 03/26/2017 In active Lovenox 30 mg/0.3 mL subcutaneous syringe RxNorm: 300074 0.3 Milliliter(s) SQ Q12H 03/19/2017 03/20/2017 In active Lovenox 30 mg/0.3 mL subcutaneous syringe RxNorm: 330548 0.3 Milliliter(s) SQ Q12H 03/16/2017 03/18/2017 In active clonazepam 0.5 mg ta blet RxNorm: 587831 1 Tablet(s) PO BID 03/02/2017 07/28/2017 Inactive Lovenox 30 mg/0.3 mL subcutaneous syringe RxNorm: 005621 1 injection SQ BID do NOT take the night time dose the day before surgery, or the morning dose the day of surgery 03/01/2017 03/07/2017 Inactive Lovenox 30 mg/0.3 mL subcutaneous syringe RxNorm: 999300 1 injection SQ BID 03/01/2017 02/28/2017 In active Detrol LA 4 mg capsu le,extended release RxNorm: 834159 TAKE 1 CAPSULE BY JAVON TH ONCE DAILY 02/19/2017 05/09/2017 Inactive Generic For:DETROL LA 4MG C AP 02/19/2017 2:36:00 PM hydrocodone 5 mg-humberto taminophen 325 mg tablet RxNorm: 449585 1-2 Tablet(s) PO Q6 P RN 02/04/2017 No Stop Date Active Zetia 10 mg tablet RxNorm: 969311 TAKE 1 TABLET BY MOUTH DAILY 01/25/2017 04/13/2018 Inactive 01/23/2017 9:03:48 AM omeprazole 20 mg cap sean,delayed release RxNorm: 348697 TAKE 1 CAPSULE BY JAVON TH EVERY DAY 01/25/2017 07/21/2017 Inactive Generic For:PRILOSEC 20MG 01/23/2017 9: 03:45 AM Coumadin 4 mg tablet RxNorm: 325642 TAKE 1 TABLET BY MOUTH THREE TIMES PER W KENAITZE (WEDNESDAY, WEDNESDAY AND WEDNESDAY) 01/25/2017 04/22/2017 Inactive Generic For:COUMADIN 4MG 01/23/2017 9:03:51 AM sodium bicarbonate 6 50 mg tablet RxNorm: 554502 TAKE 2 TABLETS BY JAVON TH TWICE DAILY 12/24/2016 06/21/2017 In active 12/24/2016 9:09:27 AM Lasix 20 mg tablet RxNorm: 240810 1 Tablet(s) PO daily 12/24/2016 04/22/2017 Inactive Synthroid 137 mcg ta blet RxNorm: 183791 TAKE 1 TABLET BY MOUT H ONCE DAILY 11/24/2016 05/22/2017 In active Generic For:SYNTHROID 137MCG TAB 2016 9:04:37 AM Coumadin 4 mg tablet RxNorm: 162388 TAKE 1 TABLET BY MOUTH THREE TIMES PER W KENAITZE (WEDNESDAY, WEDNESDAY AND WEDNESDAY) 11/24/2016 01/22/2017 Inactive Generic For:COUMADIN 4MG 11/24/2016 9:04:41 AM hydrocodone 5 mg-humberto taminophen 325 mg tablet RxNorm: 090348 1-2 Tablet(s) PO Q6 P RN 11/17/2016 02/03/2017 In active Carafate 1 gram tablet RxNorm: 981952 TAKE ONE TABLET BY MOUTH TWICE DAILY 10/27/2016 05/23/2017 In active Generic For:CARAFATE 1GM 10/26/2016 8:3 9:42 AM allopurinol 300 mg t ablet RxNorm: 615850 Tablet(s) TAKE 1 TABL ET BY MOUTH ONCE DAILY. 10/26/2016 04/22/2017 Inactive Lipitor 40 mg tablet RxNorm: 007697 1 Tablet(s) PO daily 09/25/2016 09/19/2017 Inactive Coumadin 4 mg tablet RxNorm: 480718 TAKE 1 TABLET BY MOUTH THREE TIMES PER W KENAITZE (WEDNESDAY, WEDNESDAY AND WEDNESDAY) 09/25/2016 11/23/2016 Inactive Generic For:COUMADIN 4MG 09/25/2016 8:55:58 AM Zetia 10 mg tablet RxNorm: 474893 1 Tablet(s) PO daily 09/25/2016 01/22/2017 Inactive gave 1 month of samples clonazepam 0.5 mg ta blet RxNorm: 873887 1 Tablet(s) PO BID 09/21/2016 02/16/2017 Inactive Lasix 20 mg tablet RxNorm: 782777 1 Tablet(s) PO daily 09/15/2016 12/23/2016 Inactive potassium chloride 2 0 mEq/15 mL oral liquid RxNorm: 249566 Milliliter(s) 30 Milliliter(s) (40mEq) PO daily 09/15/2016 01/12/2017 Inactive Lasix 20 mg tablet RxNorm: 254850 2 Tablet(s) PO daily 09/10/2016 09/12/2016 Inactive Lasix 20 mg tablet RxNorm: 906993 1 Tablet(s) PO daily 08/28/2016 08/30/2016 Inactive Lasix 20 mg tablet RxNorm: 653006 1 Tablet(s) PO daily 08/20/2016 08/22/2016 Inactive Detrol LA 4 mg capsu le,extended release RxNorm: 941351 TAKE 1 CAPSULE BY JAVON TH ONCE DAILY 07/27/2016 02/18/2017 Inactive Generic For:DETROL LA 4MG C AP 07/27/2016 9:08:27 AM Coumadin 4 mg tablet RxNorm: 505813 1 Tablet(s) PO 3 x week wed and sun 07/27/2016 09/24/2016 In active omeprazole 20 mg cap sean,delayed release RxNorm: 724204 Capsule(s) PO TAKE 1 CAPSULE BY MOUTH ONCE DAILY 07/27/2016 01/22/2017 Inactive venlafaxine ER 75 mg capsule,extended release 24 hr RxNorm: 725899 1 Capsule(s) PO daily 06/29/2016 06/21/2017 Inactive sodium bicarbonate 6 50 mg tablet RxNorm: 187812 TAKE 2 TABLETS BY [facility] TWICE DAILY 06/29/2016 12/23/2016 In active 06/27/2016 9:05:39 AM Coumadin 4 mg tablet RxNorm: 930523 1 Tablet(s) PO 3 x week wed and sun 06/09/2016 06/08/2016 In active Coumadin 4 mg tablet RxNorm: 734633 1 Tablet(s) PO 3 x week e and sun 06/09/2016 07/26/2016 In active Zetia 10 mg tablet RxNorm: 435812 1 Tablet(s) PO daily 06/09/2016 06/08/2016 Inactive gave 1 month of samples Zetia 10 mg tablet RxNorm: 991099 1 Tablet(s) PO daily 06/09/2016 09/24/2016 Inactive gave 1 month of samples Effexor 75 mg tablet RxNorm: 499988 1 Tablet(s) PO daily 06/08/2016 06/28/2016 Inactive spironolactone 25 mg tablet RxNorm: 618334 1 Tablet(s) PO daily 06/08/2016 05/23/2017 Inactive Synthroid 137 mcg ta blet RxNorm: 029789 1 Tablet(s) PO daily 05/07/2016 11/02/2016 Inactive allopurinol 300 mg t ablet RxNorm: 770307 Tablet(s) TAKE 1 TABL ET BY MOUTH ONCE DAILY. 04/28/2016 10/24/2016 Inactive clonazepam 0.5 mg ta blet RxNorm: 457008 1 Tablet(s) PO BID 04/20/2016 09/15/2016 Inactive Flonase Allergy Reli ef 50 mcg/actuation nasal spray,suspension RxNorm: 5647573 1 [place] NASAL BID 04/02/2016 No Stop Date Active Zithromax Z-Thomas 250 mg tablet RxNorm: 527291 Tablet(s) PO 04/02/2016 08/27/2016 Inactive cetirizine 10 mg tablet RxNorm: 3619834 1 Tablet(s) PO daily 04/02/2016 05/01/2016 Inactive Carafate 1 gram tablet RxNorm: 268411 Tablet(s) TAKE 1 TABLET TWICE A DAY FOR 30 DAYS 03/30/2016 10/25/2016 Inactive Generic For:CARAFATE 1GM 02/08/2015 12:3 6:39 PM Plavix 75 mg tablet RxNorm: 022892 1 Tablet(s) PO daily 03/11/2016 09/06/2016 Inactive sodium bicarbonate 6 50 mg tablet RxNorm: 632953 Tablet(s) 2 Tablet(s) PO BID 02/28/2016 06/26/2016 In active omeprazole 20 mg cap sean,delayed release RxNorm: 019861 Capsule(s) PO TAKE 1 CAPSULE BY MOUTH ONCE DAILY 01/31/2016 07/26/2016 Inactive Fish Oil 1,000 mg ca psule RxNorm: 1 Capsule(s) PO BID 01/14/2016 No Stop Date Active Synthroid 137 mcg ta blet RxNorm: 131607 1 Tablet(s) PO daily 01/14/2016 05/06/2016 Inactive Detrol LA 4 mg capsu le,extended release RxNorm: 958565 TAKE 1 CAPSULE BY JAVON TH ONCE DAILY 12/30/2015 07/26/2016 Inactive Generic For:DETROL LA 4MG C AP 12/30/2015 9:11:01 AM potassium chloride 2 0 mEq/15 mL oral liquid RxNorm: 999052 Milliliter(s) 30 Milliliter(s) (40mEq) PO daily 12/02/2015 03/30/2016 Inactive sodium bicarbonate 6 50 mg tablet RxNorm: 231818 Tablet(s) 2 Tablet(s) PO BID 10/31/2015 02/27/2016 In active Lipitor 40 mg tablet RxNorm: 744347 1 Tablet(s) PO daily 10/09/2015 09/24/2016 Inactive sodium bicarbonate 6 50 mg tablet RxNorm: 466310 2 Tablet(s) PO BID 10/01/2015 10/30/2015 Inactive allopurinol 300 mg t ablet RxNorm: 219532 TAKE 1 TABLET BY MOUT H ONCE DAILY. 10/01/2015 04/27/2016 In active Generic For:ZYLOPRIM 300 MG TABLET 09/19 9:21:15 AM clonazepam 0.5 mg ta blet RxNorm: 803931 1 Tablet(s) PO BID 09/30/2015 04/19/2016 Inactive Coumadin 5 mg tablet RxNorm: 659405 1 Tablet(s) PO daily 09/27/2015 05/31/2017 Inactive Generic For:COUMADIN 5MG TAB N O T I C E PRESCRIPTION PREVIOUSLY AUTHORIZED BY DOCTOR:BOBBY ZULETA Synthroid 125 mcg ta blet RxNorm: 308402 1 Tablet(s) PO daily 09/27/2015 09/26/2015 Inactive Synthroid 125 mcg ta blet RxNorm: 507521 1 Tablet(s) PO daily 09/27/2015 01/13/2016 Inactive Carafate 1 gram tablet RxNorm: 364164 Tablet(s) TAKE 1 TABLET TWICE A DAY FOR 30 DAYS 09/02/2015 03/29/2016 Inactive Generic For:CARAFATE 1GM 02/08/2015 12:3 6:39 PM sodium bicarbonate 6 50 mg tablet RxNorm: 487882 2 Tablet(s) PO BID 09/02/2015 09/30/2015 Inactive Prilosec 20 mg capsu le,delayed release RxNorm: 115528 TAKE 1 CAPSULE BY JAVON TH ONCE DAILY 08/02/2015 01/28/2016 Inactive Generic For:PRILOSEC 20MG 08/02/2015 10:03:09 AM N O T I C E PRESCRIPTION PREVIOUSLY AUTHORIZED BY DOCTOR:BOBBY ZULETA Zyrtec 10 mg capsule RxNorm: 5423811 1 Capsule(s) PO daily 07/15/2015 08/13/2015 Inactive Keflex 500 mg capsule RxNorm: 952612 1 Capsule(s) PO TID 07/15/2015 07/21/2015 Inactive cetirizine 10 mg cap sean RxNorm: 1690445 1 Capsule(s) PO daily 07/15/2015 08/13/2015 Inactive hydrocodone 5 mg-humberto taminophen 325 mg tablet RxNorm: 600724 1-2 Tablet(s) PO Q6 P RN 06/10/2015 11/16/2016 In active sodium bicarbonate 6 50 mg tablet RxNorm: 621036 2 Tablet(s) PO BID 06/03/2015 08/31/2015 Inactive Detrol LA 4 mg capsu le,extended release RxNorm: 756900 TAKE 1 CAPSULE BY JAVON TH ONCE DAILY 06/03/2015 12/29/2015 Inactive Generic For:DETROL LA 4MG C AP N O T I C E PRESCRIPTION PREVIOUSLY AUTHORIZED BY DOCTOR:BOBBY ZULETA atenolol 50 mg tablet RxNorm: 476589 1 Tablet(s) PO daily TAKE 1 TABLET BY MO UTH DAILY 05/07/2015 08/23/2017 Inactive Generic For:TENORMIN 50MG 05/04/2015 9:07:22 AM spironolactone 25 mg tablet RxNorm: 920426 1 Tablet(s) PO daily 05/06/2015 06/07/2016 Inactive venlafaxine ER 75 mg capsule,extended release 24 hr RxNorm: 305437 1 Capsule(s) PO daily 05/04/2015 06/28/2016 Inactive atenolol 50 mg tablet RxNorm: 532770 TAKE 1 TABLET BY MOUTH DAILY 05/04/2015 05/06/2015 Inactive Generic For:TENORMIN 50MG 05/04/2015 9: 07:22 AM Synthroid 150 mcg ta blet RxNorm: 133793 TAKE 1 TABLET BY MOUT H ONCE DAILY. 04/05/2015 09/26/2015 In active Generic For:SYNTHROID 150MCG TAB 2014 4:45:40 PM N O T I C E PRESCRIPTION PREVIOUSLY AUTHORIZED BY DOCTOR:BOBBY ZULETA Effexor 75 mg tablet RxNorm: 113055 1 Tablet(s) PO daily 04/05/2015 07/03/2015 Inactive Coumadin 5 mg tablet RxNorm: 837681 TAKE 1 AND 1/2 TABLETS BY MOUTH ONCE MYRANDA LY 04/04/2015 09/26/2015 In active Generic For:COUMADIN 5MG TAB N O T I C E PRESCRIPTION PREVIOUSLY AUTHORIZED BY DOCTOR:BOBBY ZULETA clonazepam 0.5 mg ta blet RxNorm: 960643 1 Tablet(s) PO BID 03/13/2015 11/05/2015 Inactive sodium bicarbonate 6 50 mg tablet RxNorm: 876942 2 Tablet(s) PO BID 03/08/2015 06/02/2015 Inactive allopurinol 300 mg t ablet RxNorm: 607605 TAKE 1 TABLET BY MOUT H ONCE DAILY. 03/05/2015 09/30/2015 In active N O T I C E PRESCRIPTION PREVIOUSLY A UTHORIZED BY DOCTOR:BOBBY ZULETA Plavix 75 mg tablet RxNorm: 499619 1 Tablet(s) PO daily 02/12/2015 09/09/2015 Inactive clonazepam 0.5 mg ta blet RxNorm: 622162 1 Tablet(s) PO BID 02/11/2015 03/11/2015 Inactive Carafate 1 gram tablet RxNorm: 390440 TAKE 1 TABLET TWICE A DAY FOR 30 DAYS 02/08/2015 02/07/2015 In active Generic For:CARAFATE 1GM 02/08/2015 12:3 6:39 PM Carafate 1 gram tablet RxNorm: 347764 Tablet(s) TAKE 1 TABLET TWICE A DAY FOR 30 DAYS 02/08/2015 09/01/2015 Inactive Generic For:CARAFATE 1GM 02/08/2015 12:3 6:39 PM potassium chloride 2 0 mEq/15 mL oral liquid RxNorm: 224366 30 Milliliter(s) (40m Eq) PO daily 02/05/2015 12/01/2015 Inactive atenolol 50 mg tablet RxNorm: 338831 1 Tablet(s) PO daily 02/04/2015 05/03/2015 Inactive [SAVINGS FOR NON-COVERED DRUGS -- BIN:00 3585, PCN: ASPROD1, Group: XXXXX, ID# [id number], Questions: . THIS IS NOT INSURANCE.] potassium chloride 2 0 mEq/15 mL oral liquid RxNorm: 137565 30 Milliliter(s) (40m Eq) PO daily 01/08/2015 02/04/2015 Inactive potassium chloride 2 0 mEq/15 mL oral liquid RxNorm: 449824 30 Milliliter(s) (40m Eq) PO daily 12/07/2014 01/07/2015 Inactive atenolol 50 mg tablet RxNorm: 665298 1 Tablet(s) PO daily 11/09/2014 11/08/2014 Inactive atenolol 50 mg tablet RxNorm: 666477 1 Tablet(s) PO daily 11/09/2014 02/03/2015 Inactive [SAVINGS FOR NON-COVERED DRUGS -- BIN:00 3585, PCN: ASPROD1, Group: XXXXX, ID# [id number], Questions: . THIS IS NOT INSURANCE.] Voltaren 1 % topical gel RxNorm: 616500 TOP No St art Date Active verapamil ER (HS) 24 0 mg tablet,extended release 24 hr RxNorm: 767195 1 Tablet(s) PO daily No Start Date Active aspirin 81 mg tablet RxNorm: 452225 1 Tablet(s) PO daily No Start Date Active Zofran 4 mg tablet RxNorm: 814814 1 Tablet(s) PO PRN No Start Date Active B12 1000 mcg RxNorm: 1 Tablet(s) PO daily No Start Date Active magnesium oxide 400 mg capsule RxNorm: 506570 2 Capsule(s) PO BID No Start Date Active Synthroid 150 mcg ta blet RxNorm: 578791 1 Tablet(s) PO daily No Start Date 04/04/2015 Inactive Coumadin 5 mg tablet RxNorm: 109563 1 Tablet(s) PO daily No Start Date 04/03/2015 Inactive cranberry 1,000 mg c apsule RxNorm: 159621 1 Capsule(s) PO daily No Start Date 04/13/2018 Inactive allopurinol 300 mg t ablet RxNorm: 047019 1 Tablet(s) PO daily No Start Date 03/04/2015 Inactive Prilosec 20 mg capsu le,delayed release RxNorm: 048293 1 Capsule(s) PO PRN No Start Date 08/01/2015 Inactive potassium chloride 2 0 mEq/15 mL oral liquid RxNorm: 722235 30 Milliliter(s) (40m Eq) PO daily No Start Date 12/06/2014 Inactive atenolol 50 mg tablet RxNorm: 586602 1 Tablet(s) PO daily No Start Date 08/29/2017 Inactive Lipitor 40 mg tablet RxNorm: 651219 1 Tablet(s) PO daily No Start Date 09/19/2017 Inactive Effexor 75 mg tablet RxNorm: 505263 1 Tablet(s) PO daily No Start Date 04/04/2015 Inactive Carafate 1 gram tablet RxNorm: 217155 1 Tablet(s) PO BID No Start Date 02/07/2015 Inactive clonazepam 0.5 mg ta blet RxNorm: 177228 1 Tablet(s) PO BID No Start Date 02/10/2015 Inactive Plavix 75 mg tablet RxNorm: 457892 1 Tablet(s) PO daily No Start Date 02/11/2015 Inactive sodium bicarbonate 6 50 mg tablet RxNorm: 186279 2 Tablet(s) PO BID No Start Date 09/01/2015 Inactive Lovenox 30 mg/0.3 mL subcutaneous syringe RxNorm: 903808 0.3 Milliliter(s) SQ Q12H No Start Date 03/15/2017 Inactive Fish Oil 1,000 mg ca psule RxNorm: 1 Capsule(s) PO daily No Start Date 01/13/2016 Inactive Detrol LA 4 mg capsu le,extended release RxNorm: 082146 1 Capsule(s) PO daily No Start Date 06/02/2015 Inactive Medication Administered No Medication Administered data Immunizations Vaccine Codes Date Status SHINGARIX CVX: 121 03/23 completed Assessments Condition Codes Effectiv e Dates Hypothyroidism, unspecified ICD-10: E03.9 ICD-9: 244.9 04/14/2018 Essential (primary) hypertension ICD -10: I10 ICD-9: 401.9 04/14/2018 emt intermediate (current) use of anticoagulants ICD-10: Z79.01 [...] fatigue ICD-10: R53.83 ICD-9: 780.79 08/20/2016 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.899 ICD-9: V58.69 [...] Code Item Item Code Result Date Pt Knu3043 PT 16.8 seconds 05/10/2018 Pt Qrj9738 INR 1.4 05/10/2018 Pt Wgn2385 Low Intensity - 1.5-2.0 05/10/2018 Pt Sla0154 Mod intensity - 2.0-3.0 05/10/2018 Pt Wsn7014 Hi intensity - 3.0-4.0 05/10/2018 Pt Iwb0490 PT 16.7 seconds 05/04/2018 Pt Jcu3207 INR 1.4 05/04/2018 Pt Pis6080 Low Intensity - 1.5-2.0 05/04/2018 Pt Cxz1731 Mod intensity - 2.0-3.0 05/04/2018 Pt Ead2497 Hi intensity - 3.0-4.0 05/04/2018 Free T4 Hvd557 FREE T4 1.09 ng/dL 04/14/2018 Tsh Ord6 TSH (3rd IS) 2.36 uIU/mL 04/14/2018 Pt Whs0480 PT 20.3 seconds 04/14/2018 Pt Jll4065 INR 1.8 04/14/2018 Pt Bdt8667 Low Intensity - 1.5-2.0 04/14/2018 Pt Mwx2111 Mod intensity - 2.0-3.0 04/14/2018 Pt Gme2409 Hi intensity - 3.0-4.0 04/14/2018 Lipid Ord30 CHOL 149 mg/dL 04/14/2018 Lipid Ord30 HDL 49.0 mg/dl 04/14/2018 Lipid Ord30 TRIG 161 mg/dL 04/14/2018 Lipid Ord30 LDL 68 mg/dL 04/14/2018 Lipid Ord30 C/HDL 3.0 Ratio 04/14/2018 %Hba1C Seh275 % HbA1c 02760-3 5.9 % 04/14/2018 %Hba1C Pne842 Gluc Ave 123 mg/dL 04/14/2018 Comp Metabolic Xej089 NA 140 mEq/L 04/14/2018 Comp Metabolic Jln668 K 4.1 mEq/L 04/14/2018 Comp Metabolic Tga726 CL 105 mEq/L 04/14/2018 Comp Metabolic Yvn273 CO2 28.0 mEq/L 04/14/2018 Comp Metabolic Rwt251 AN ION GAP 11 04/14/2018 Comp Metabolic Xrq581 GL UCOSE 112 mg/dL 04/14/2018 Comp Metabolic Nke614 Cr eat 1.0 mg/dL 04/14/2018 Comp Metabolic Wyd139 eG FR 58 ml/min/1.73m2 04/14 Comp Metabolic Rap796 BUN 20 mg/dL 04/14/2018 Comp Metabolic Njt146 B/ C Ratio 20.2 Ratio 04/14/2018 Comp Metabolic Iow349 CA LCIUM 10.0 mg/dL 04/14/2018 Comp Metabolic Nhm941 AL K PHOS 51 U/L 04/14/2018 Comp Metabolic Sko930 T(SGOT) 24 U/L 04/14/2018 Comp Metabolic Nwi223 AL T(SGPT) 21 U/L 04/14/2018 Comp Metabolic Ixf522 BI LI T 0.8 mg/dL 04/14/2018 Comp Metabolic Srb178 AL BUMIN 4.2 g/dL 04/14/2018 Comp Metabolic Thb028 TP RO 7.1 g/dL 04/14/2018 Comp Metabolic Wvm472 GL OB 2.9 g/dL 04/14/2018 Comp Metabolic Lik339 A/ G Ratio 1.5 Ratio 04/14/2018 Comp Metabolic Njo426 Os mo 283 mOsmo 04/14/2018 Cbc With [...] 30.7 pg 04/14/2018 Cbc With Differential Ord2 [place]% 10.6 % 04/14/2018 Cbc With Differential Ord2 [...] 1.18 K/ul 04/14/2018 Cbc With Differential Ord2 [place] ABS# 0.5 K/ul 04/14/2018 Cbc With Differential Ord2 Eos ABS# 0.2 K/ul 04/14/2018 Cbc With Differential Ord2 Baso ABS# 0.1 K/ul 04/14/2018 Pt Vuu7489 PT 29.3 seconds 02/11/2018 Pt Hnr4384 INR 2.8 02/11/2018 Pt Fex9361 Low Intensity - 1.5-2.0 02/11/2018 Pt Uyu4449 Mod intensity - 2.0-3.0 02/11/2018 Pt Vlh0581 Hi intensity - 3.0-4.0 02/11/2018 Comp Metabolic Cmc778 NA 141 mEq/L 01/05/2018 Comp Metabolic Xyd468 K 3.7 mEq/L 01/05/2018 Comp Metabolic Amk925 CL 102 mEq/L 01/05/2018 Comp Metabolic Cxf791 CO2 29.0 mEq/L 01/05/2018 Comp Metabolic Osk010 AN ION GAP 14 01/05/2018 Comp Metabolic Kmw164 GL UCOSE 136 mg/dL 01/05/2018 Comp Metabolic Sjt560 Cr eat 1.0 mg/dL 01/05/2018 Comp Metabolic Kap271 eG FR 61 ml/min/1.73m2 01/05 Comp Metabolic Hfw162 BUN 22 mg/dL 01/05/2018 Comp Metabolic Oiz865 B/ C Ratio 22.9 Ratio 01/05/2018 Comp Metabolic Hvb602 CA LCIUM 9.7 mg/dL 01/05/2018 Comp Metabolic Lab176 AL K PHOS 57 U/L 01/05/2018 Comp Metabolic Ipq692 T(SGOT) 21 U/L 01/05/2018 Comp Metabolic Qbh183 AL T(SGPT) 19 U/L 01/05/2018 Comp Metabolic Zok586 BI LI T 0.9 mg/dL 01/05/2018 Comp Metabolic Xeu497 AL BUMIN 4.1 g/dL 01/05/2018 Comp Metabolic Pon502 TP RO 7.1 g/dL 01/05/2018 Comp Metabolic Yyg543 GL OB 3.0 g/dL 01/05/2018 Comp Metabolic Ihs326 A/ G Ratio 1.4 Ratio 01/05/2018 Comp Metabolic Qdg122 Os mo 287 mOsmo 01/05/2018 Free T4 Wol813 FREE T4 1.05 ng/dL 01/05/2018 %Hba1C Bkv200 % HbA1c 27376-3 6.0 % 01/05/2018 %Hba1C Lqi252 Gluc Ave 126 mg/dL 01/05/2018 Cbc With [...] 30.6 pg 01/05/2018 Cbc With Differential Ord2 [place]% 10.5 % 01/05/2018 Cbc With Differential Ord2 [...] 1.27 K/ul 01/05/2018 Cbc With Differential Ord2 [place] ABS# 0.5 K/ul 01/05/2018 Cbc With Differential Ord2 Eos ABS# 0.2 K/ul 01/05/2018 Cbc With Differential Ord2 Baso ABS# 0.1 K/ul 01/05/2018 Pt Hpk0974 PT 20.7 seconds 01/05/2018 Pt Jiw4569 INR 1.8 01/05/2018 Pt Ycp9014 Low Intensity - 1.5-2.0 01/05/2018 Pt Ttm1142 Mod intensity - 2.0-3.0 01/05/2018 Pt Cdt9740 Hi intensity - 3.0-4.0 01/05/2018 Tsh Ord6 TSH (3rd IS) 2.34 uIU/mL 01/05/2018 Lipid Ord30 CHOL 156 mg/dL 01/05/2018 Lipid Ord30 HDL 48.0 mg/dl 01/05/2018 Lipid Ord30 TRIG 207 mg/dL 01/05/2018 Lipid Ord30 LDL 67 mg/dL 01/05/2018 Lipid Ord30 C/HDL 3.3 Ratio 01/05/2018 Pt Srn2690 PT 28.3 seconds 11/26/2017 Pt Ong4713 INR 2.6 11/26/2017 Pt Ugx3692 Low Intensity - 1.5-2.0 11/26/2017 Pt Rln6327 Mod intensity - 2.0-3.0 11/26/2017 Pt Wpt6882 Hi intensity - 3.0-4.0 11/26/2017 Pt Oob8519 PT 36.5 seconds 11/19/2017 Pt Yoy5370 INR 3.6 11/19/2017 Pt Rpi0781 Low Intensity - 1.5-2.0 11/19/2017 Pt Ofx4841 Mod intensity - 2.0-3.0 11/19/2017 Pt Jge5284 Hi intensity - 3.0-4.0 11/19/2017 Pt Ewr7539 PT 22.9 seconds 10/15/2017 Pt Cjv0493 INR 2.0 10/15/2017 Pt Atv7175 Low Intensity - 1.5-2.0 10/15/2017 Pt Rci9075 Mod intensity - 2.0-3.0 10/15/2017 Pt Zcp5435 Hi intensity - 3.0-4.0 10/15/2017 Pt Dmz6719 PT 25.9 seconds 10/01/2017 Pt Ygk5327 INR 2.4 10/01/2017 Pt Edk9988 Low Intensity - 1.5-2.0 10/01/2017 Pt Mmj0083 Mod intensity - 2.0-3.0 10/01/2017 Pt Qkd9094 Hi intensity - 3.0-4.0 10/01/2017 Pt Zqc8473 PT 20.6 seconds 09/24/2017 Pt Xuj1711 INR 1.8 09/24/2017 Pt Mhh5995 Low Intensity - 1.5-2.0 09/24/2017 Pt Vou6598 Mod intensity - 2.0-3.0 09/24/2017 Pt Blp0030 Hi intensity - 3.0-4.0 09/24/2017 Pt Ozu5268 PT 21.0 seconds 09/15/2017 Pt Xxu6699 INR 1.8 09/15/2017 Pt Wuh3112 Low Intensity - 1.5-2.0 09/15/2017 Pt Zor2519 Mod intensity - 2.0-3.0 09/15/2017 Pt Urn4958 Hi intensity - 3.0-4.0 09/15/2017 Pt Tux5897 PT 19.0 seconds 09/03/2017 Pt Yvk1216 INR 1.6 09/03/2017 Pt Epi7105 Low Intensity - 1.5-2.0 09/03/2017 Pt Ejw7196 Mod intensity - 2.0-3.0 09/03/2017 Pt Urd5609 Hi intensity - 3.0-4.0 09/03/2017 Pt Dcs1623 PT 17.6 seconds 08/23/2017 Pt Aue2082 INR 1.5 08/23/2017 Pt Gpk0105 Low Intensity - 1.5-2.0 08/23/2017 Pt Cbf5217 Mod intensity - 2.0-3.0 08/23/2017 Pt Mqq0418 Hi intensity - 3.0-4.0 08/23/2017 Pt Kvu3368 PT 12.7 seconds 08/20/2017 Pt Fea9722 INR 1.0 08/20/2017 Pt Xcn4468 Low Intensity - 1.5-2.0 08/20/2017 Pt Wac5707 Mod intensity - 2.0-3.0 08/20/2017 Pt Rgz0536 Hi intensity - 3.0-4.0 08/20/2017 Pt Whu4201 PT 12.9 seconds 08/17/2017 Pt Kjv8141 INR 1.0 08/17/2017 Pt Jjt8853 Low Intensity - 1.5-2.0 08/17/2017 Pt Kza6375 Mod intensity - 2.0-3.0 08/17/2017 Pt Bng4055 Hi intensity - 3.0-4.0 08/17/2017 Pt Gyp0675 PT 18.5 seconds 08/10/2017 Pt Uaw0710 INR 1.6 08/10/2017 Pt Baa6356 Low Intensity - 1.5-2.0 08/10/2017 Pt Qig9367 Mod intensity - 2.0-3.0 08/10/2017 Pt Wha0895 Hi intensity - 3.0-4.0 08/10/2017 Tsh Ord6 [...] 29.3 pg 05/27/2017 Cbc With Differential Ord2 [place]% 8.1 % 05/27/2017 Cbc With Differential Ord2 [...] 1.11 K/ul 05/27/2017 Cbc With Differential Ord2 [place] ABS# 0.6 K/ul 05/27/2017 Cbc With Differential Ord2 Eos ABS# 0.2 K/ul 05/27/2017 Cbc With Differential Ord2 Baso ABS# 0.1 K/ul 05/27/2017 Pt Cvd9071 PT 28.2 seconds 05/27/2017 Pt Rpx5925 INR 2.6 05/27/2017 Pt Ojp5502 Low Intensity - 1.5-2.0 05/27/2017 Pt Ftn7144 Mod intensity - 2.0-3.0 05/27/2017 Pt Gio8258 Hi intensity - 3.0-4.0 05/27/2017 Lipid Ord30 CHOL 167 mg/dL 05/27/2017 Lipid Ord30 HDL 49.0 mg/dl 05/27/2017 Lipid Ord30 TRIG 347 mg/dL 05/27/2017 Lipid Ord30 LDL 49 mg/dL 05/27/2017 Lipid Ord30 C/HDL 3.4 Ratio 05/27/2017 Magnesium Ord90 Mag 1.4 mg/dL 05/27/2017 %Hba1C Jwh555 % HbA1c 51039-8 5.9 % 05/27/2017 %Hba1C Nlr489 Gluc Ave 123 mg/dL 05/27/2017 Comp Metabolic Yww783 NA 138 mEq/L 05/27/2017 Comp Metabolic Qmt866 K 4.1 mEq/L 05/27/2017 Comp Metabolic Qss441 CL 101 mEq/L 05/27/2017 Comp Metabolic Jwz389 CO2 31.0 mEq/L 05/27/2017 Comp Metabolic Hdx931 AN ION GAP 10 05/27/2017 Comp Metabolic Rij983 GL UCOSE 117 mg/dL 05/27/2017 Comp Metabolic Oob649 Cr eat 0.9 mg/dL 05/27/2017 Comp Metabolic Zto123 eG FR 62 ml/min/1.73m2 05/27 Comp Metabolic Yfp815 BUN 25 mg/dL 05/27/2017 Comp Metabolic Pyo933 B/ C Ratio 26.6 Ratio 05/27/2017 Comp Metabolic Sqg020 CA LCIUM 9.5 mg/dL 05/27/2017 Comp Metabolic Yzb741 AL K PHOS 73 U/L 05/27/2017 Comp Metabolic Zhh814 T(SGOT) 18 U/L 05/27/2017 Comp Metabolic Hkm021 AL T(SGPT) 12 U/L 05/27/2017 Comp Metabolic Mvo336 BI LI T 0.5 mg/dL 05/27/2017 Comp Metabolic Ydi378 AL BUMIN 4.1 g/dL 05/27/2017 Comp Metabolic Coe442 TP RO 7.1 g/dL 05/27/2017 Comp Metabolic Unp378 GL OB 3.0 g/dL 05/27/2017 Comp Metabolic Fvj272 A/ G Ratio 1.3 Ratio 05/27/2017 Comp Metabolic Gip138 Os mo 281 mOsmo 05/27/2017 Free T4 Zne640 FREE T4 0.91 ng/dL 05/27/2017 Pt Gsk8585 PT 29.2 seconds 04/16/2017 Pt Myu9431 INR 2.7 04/16/2017 Pt Ghx3154 Low Intensity - 1.5-2.0 04/16/2017 Pt Qcz6518 Mod intensity - 2.0-3.0 04/16/2017 Pt Hcx7674 Hi intensity - 3.0-4.0 04/16/2017 Pt Kza5735 PT 30.7 seconds 03/31/2017 Pt Qvm9097 INR 2.9 03/31/2017 Pt Xgd1847 Low Intensity - 1.5-2.0 03/31/2017 Pt Ftk5438 Mod intensity - 2.0-3.0 03/31/2017 Pt Aef7742 Hi intensity - 3.0-4.0 03/31/2017 Pt Rvo9440 PT 21.3 seconds 03/26/2017 Pt Hka2874 INR 1.9 03/26/2017 Pt Ygk8274 Low Intensity - 1.5-2.0 03/26/2017 Pt Tym9158 Mod intensity - 2.0-3.0 03/26/2017 Pt Swi3585 Hi intensity - 3.0-4.0 03/26/2017 Pt Fak5514 PT 19.8 seconds 03/22/2017 Pt Xbh1153 INR 1.7 03/22/2017 Pt Fdg4874 Low Intensity - 1.5-2.0 03/22/2017 Pt Pfa6961 Mod intensity - 2.0-3.0 03/22/2017 Pt Uoa0179 Hi intensity - 3.0-4.0 03/22/2017 Pt Lju4045 PT 15.6 seconds 03/19/2017 Pt Zvm4290 INR 1.3 03/19/2017 Pt Qdq0959 Low Intensity - 1.5-2.0 03/19/2017 Pt Lnw8381 Mod intensity - 2.0-3.0 03/19/2017 Pt Nvc0400 Hi intensity - 3.0-4.0 03/19/2017 Pt Rgj9521 PT 13.7 seconds 03/15/2017 Pt Csz7279 INR 1.1 03/15/2017 Pt Npz7683 Low Intensity - 1.5-2.0 03/15/2017 Pt Odf5224 Mod intensity - 2.0-3.0 03/15/2017 Pt Czu3281 Hi intensity - 3.0-4.0 03/15/2017 Pt Bcz8579 PT 25.8 seconds 01/28/2017 Pt Nbi9317 INR 2.4 01/28/2017 Pt Upi3440 Low Intensity - 1.5-2.0 01/28/2017 Pt Cah4235 Mod intensity - 2.0-3.0 01/28/2017 Pt Fzx1874 Hi intensity - 3.0-4.0 01/28/2017 %Hba1C Cem957 % HbA1c 20915-0 6.4 % 10/23/2016 %Hba1C Ozf203 Gluc Ave 137 mg/dL 10/23/2016 Comp Metabolic Cnj335 NA 138 mEq/L 10/23/2016 Comp Metabolic Pnw759 K 3.4 mEq/L 10/23/2016 Comp Metabolic Mxi091 CL 100 mEq/L 10/23/2016 Comp Metabolic Yzo328 CO2 30.0 mEq/L 10/23/2016 Comp Metabolic Rwn988 AN ION GAP 11 10/23/2016 Comp Metabolic Rqc711 GL UCOSE 139 mg/dL 10/23/2016 Comp Metabolic Lyp338 Cr eat 0.9 mg/dL 10/23/2016 Comp Metabolic Qwp140 eG FR 62 ml/min/1.73m2 10/23 Comp Metabolic Bid310 BUN 22 mg/dL 10/23/2016 Comp Metabolic Fbr066 B/ C Ratio 23.4 Ratio 10/23/2016 Comp Metabolic Myn002 CA LCIUM 8.7 mg/dL 10/23/2016 Comp Metabolic Uvp196 AL K PHOS 66 U/L 10/23/2016 Comp Metabolic Vfq340 T(SGOT) 20 U/L 10/23/2016 Comp Metabolic Sef227 AL T(SGPT) 10 U/L 10/23/2016 Comp Metabolic Lkm803 BI LI T 0.5 mg/dL 10/23/2016 Comp Metabolic Eee641 AL BUMIN 3.5 g/dL 10/23/2016 Comp Metabolic Ddx859 TP RO 6.3 g/dL 10/23/2016 Comp Metabolic Izz412 GL OB 2.8 g/dL 10/23/2016 Comp Metabolic Zwv643 A/ G Ratio 1.3 Ratio 10/23/2016 Comp Metabolic Vmv168 Os mo 281 mOsmo 10/23/2016 Pt Knu2833 PT 26.8 seconds 10/23/2016 Pt Mob1305 INR 2.7 10/23/2016 Pt Qfc4748 Low Intensity - 1.5-2.0 10/23/2016 Pt Uzk7553 Mod intensity - 2.0-3.0 10/23/2016 Pt Dta1534 Hi intensity - 3.0-4.0 10/23/2016 Pt Wcf7381 PT 28.3 seconds 09/25/2016 Pt Ovc7545 INR 2.8 09/25/2016 Pt Sul3350 Low Intensity - 1.5-2.0 09/25/2016 Pt Eep3694 Mod intensity - 2.0-3.0 09/25/2016 Pt Axf0470 Hi intensity - 3.0-4.0 09/25/2016 Metabolic Ord15 [...] Metabolic Ord15 CALCIUM 8.8 mg/dL 09/25/2016 Pt Mff4037 PT 30.6 seconds 09/11/2016 Pt Vzs9885 INR 3.2 09/11/2016 Pt Jag1147 Low Intensity - 1.5-2.0 09/11/2016 Pt Thr1929 Mod intensity - 2.0-3.0 09/11/2016 Pt Jid0678 Hi intensity - 3.0-4.0 09/11/2016 Comp Metabolic Akq439 NA 138 mEq/L 09/11/2016 Comp Metabolic Dqi548 K 4.4 mEq/L 09/11/2016 Comp Metabolic Cda242 CL 103 mEq/L 09/11/2016 Comp Metabolic Frc692 CO2 31.0 mEq/L 09/11/2016 Comp Metabolic Kma352 AN ION GAP 8 09/11/2016 Comp Metabolic Hun958 GL UCOSE 146 mg/dL 09/11/2016 Comp Metabolic Fup823 Cr eat 1.0 mg/dL 09/11/2016 Comp Metabolic Xdk935 eG FR 60 ml/min/1.73m2 09/11 Comp Metabolic Agx250 BUN 16 mg/dL 09/11/2016 Comp Metabolic Wxb717 B/ C Ratio 16.5 Ratio 09/11/2016 Comp Metabolic Ouu002 CA LCIUM 8.7 mg/dL 09/11/2016 Comp Metabolic Iio746 AL K PHOS 52 U/L 09/11/2016 Comp Metabolic Kbv402 T(SGOT) 19 U/L 09/11/2016 Comp Metabolic Mpq880 AL T(SGPT) 11 U/L 09/11/2016 Comp Metabolic Bqn978 BI LI T 0.7 mg/dL 09/11/2016 Comp Metabolic Zhn663 AL BUMIN 3.3 g/dL 09/11/2016 Comp Metabolic Lmm971 TP RO 5.8 g/dL 09/11/2016 Comp Metabolic Gky601 GL OB 2.5 g/dL 09/11/2016 Comp Metabolic Jpl770 A/ G Ratio 1.3 Ratio 09/11/2016 Comp Metabolic Kwc907 Os mo 280 mOsmo 09/11/2016 C-Reactive Protein Qnt Crqnt CRP 0.1 mg/dl 08/21/2016 Comp Metabolic Ohc244 NA 139 mEq/L 08/21/2016 Comp Metabolic Nor136 K 4.1 mEq/L 08/21/2016 Comp Metabolic Pnl517 CL 102 mEq/L 08/21/2016 Comp Metabolic Fle322 CO2 30.0 mEq/L 08/21/2016 Comp Metabolic Toz845 AN ION GAP 11 08/21/2016 Comp Metabolic Rij171 GL UCOSE 148 mg/dL 08/21/2016 Comp Metabolic Crg830 Cr eat 1.0 mg/dL 08/21/2016 Comp Metabolic Wid887 eG FR 55 ml/min/1.73m2 08/21 Comp Metabolic Cxg698 BUN 21 mg/dL 08/21/2016 Comp Metabolic Rjx731 B/ C Ratio 20.2 Ratio 08/21/2016 Comp Metabolic Bsq009 CA LCIUM 9.4 mg/dL 08/21/2016 Comp Metabolic Jce466 AL K PHOS 63 U/L 08/21/2016 Comp Metabolic Esc919 T(SGOT) 23 U/L 08/21/2016 Comp Metabolic Apn130 AL T(SGPT) 16 U/L 08/21/2016 Comp Metabolic Gak165 BI LI T 0.6 mg/dL 08/21/2016 Comp Metabolic Iph526 AL BUMIN 3.9 g/dL 08/21/2016 Comp Metabolic Lvn364 TP RO 6.8 g/dL 08/21/2016 Comp Metabolic Smp383 GL OB 2.9 g/dL 08/21/2016 Comp Metabolic Twg718 A/ G Ratio 1.4 Ratio 08/21/2016 Comp Metabolic Mee495 Os mo 283 mOsmo 08/21/2016 Sed Rate Ord21 ESR 16 mm/hr 08/21/2016 Pt Kgi7986 PT 27.2 seconds 08/21/2016 Pt Urh2839 INR 2.7 08/21/2016 Pt Qkt2699 Low Intensity - 1.5-2.0 08/21/2016 Pt Ncm2291 Mod intensity - 2.0-3.0 08/21/2016 Pt Qcs0351 Hi intensity - 3.0-4.0 08/21/2016 Magnesium Ord90 Mag 1.9 mg/dL 08/21/2016 Pt Qcq7206 PT 25.9 seconds 06/17/2016 Pt Ygg9587 INR 2.5 06/17/2016 Pt Sjj4856 Low Intensity - 1.5-2.0 06/17/2016 Pt Krd7509 Mod intensity - 2.0-3.0 06/17/2016 Pt Grw1046 Hi intensity - 3.0-4.0 06/17/2016 Tsh Ord6 hTSH II 2.13 uIU/mL 06/08/2016 Free T4 Qly126 FREE T4 0.79 ng/dL 06/08/2016 Cbc With [...] 80.8 fl 06/08/2016 Cbc With Differential Ord2 [place]% 12.0 % 06/08/2016 Cbc With Differential Ord2 [...] 1.40 K/ul 06/08/2016 Cbc With Differential Ord2 [place] ABS# 0.7 K/ul 06/08/2016 Cbc With Differential Ord2 Eos ABS# 0.3 K/ul 06/08/2016 Cbc With Differential Ord2 Baso ABS# 0.1 K/ul 06/08/2016 %Hba1C Tft435 % HbA1c 08565-7 6.2 % 06/08/2016 %Hba1C Fym846 Gluc Ave 131 mg/dL 06/08/2016 Comp Metabolic Bzk037 NA 138 mEq/L 06/08/2016 Comp Metabolic Kpe941 K 3.9 mEq/L 06/08/2016 Comp Metabolic Cmf473 CL 105 mEq/L 06/08/2016 Comp Metabolic Vqk912 CO2 27.0 mEq/L 06/08/2016 Comp Metabolic Scu777 AN ION GAP 10 06/08/2016 Comp Metabolic Qbk685 GL UCOSE 127 mg/dL 06/08/2016 Comp Metabolic Rig734 Cr eat 1.0 mg/dL 06/08/2016 Comp Metabolic Ldz573 eG FR 59 ml/min/1.73m2 06/08 Comp Metabolic Oaq700 BUN 19 mg/dL 06/08/2016 Comp Metabolic Siz329 B/ C Ratio 19.4 Ratio 06/08/2016 Comp Metabolic Xiy774 CA LCIUM 9.2 mg/dL 06/08/2016 Comp Metabolic Wfl998 AL K PHOS 77 U/L 06/08/2016 Comp Metabolic Eqb719 T(SGOT) 19 U/L 06/08/2016 Comp Metabolic Bng555 AL T(SGPT) 13 U/L 06/08/2016 Comp Metabolic Gwg035 BI LI T 0.5 mg/dL 06/08/2016 Comp Metabolic Gbr398 AL BUMIN 3.8 g/dL 06/08/2016 Comp Metabolic Jej405 TP RO 6.6 g/dL 06/08/2016 Comp Metabolic Obm888 GL OB 2.8 g/dL 06/08/2016 Comp Metabolic Hvf848 A/ G Ratio 1.4 Ratio 06/08/2016 Comp Metabolic Zsm035 Os mo 280 mOsmo 06/08/2016 Pt Xdy1312 PT 36.1 seconds 06/08/2016 Pt Yfh1921 INR 3.9 06/08/2016 Pt Xqa2946 Low Intensity - 1.5-2.0 06/08/2016 Pt Vhx3763 Mod intensity - 2.0-3.0 06/08/2016 Pt Fza5653 Hi intensity - 3.0-4.0 06/08/2016 Lipid Ord30 CHOL 149 mg/dL 06/08/2016 Lipid Ord30 HDL 46.0 mg/dl 06/08/2016 Lipid Ord30 TRIG 279 mg/dL 06/08/2016 Lipid Ord30 LDL 47 mg/dL 06/08/2016 Lipid Ord30 C/HDL 3.2 Ratio 06/08/2016 Pt Ofg2402 PT 30.9 seconds 02/12/2016 Pt Zzd2833 INR 3.2 02/12/2016 Pt Blm5628 Low Intensity - 1.5-2.0 02/12/2016 Pt Cdu6696 Mod intensity - 2.0-3.0 02/12/2016 Pt Rsc7581 Hi intensity - 3.0-4.0 02/12/2016 Free T4 Fea432 FREE T4 1.24 ng/dL 09/27/2015 %Hba1C Kpx220 % HbA1c 38535-1 6.4 % 09/27/2015 %Hba1C Knk321 Gluc Ave 137 mg/dL 09/27/2015 Tsh Ord6 hTSH II 0.37 uIU/mL 09/27/2015 Pt Tzk7519 PT 26.2 seconds 09/27/2015 Pt Pvf1990 INR 2.5 09/27/2015 Pt Wbr7042 Low Intensity - 1.5-2.0 09/27/2015 Pt Hfn0688 Mod intensity - 2.0-3.0 09/27/2015 Pt Pxb8992 Hi intensity - 3.0-4.0 09/27/2015 Pt Ldk3110 PT 27.6 seconds 2015 Pt Msi6952 INR 2.7 2015 Pt Nhi3151 Low Intensity - 1.5-2.0 2015 Pt Mbt1423 Mod intensity - 2.0-3.0 2015 Pt Tbn5995 Hi intensity - 3.0-4.0 2015 %Hba1C Ctm121 % HbA1c 97442-2 6.1 % 06/11/2015 %Hba1C Ttw983 Gluc Ave 128 mg/dL 06/11/2015 Cbc With [...] Ord2 RDW 15.8 % 06/10/2015 Comp Metabolic Gkf783 NA 139 mEq/L 06/10/2015 Comp Metabolic Hwx772 K 4.1 mEq/L 06/10/2015 Comp Metabolic Hix680 CL 105 mEq/L 06/10/2015 Comp Metabolic Ofj176 CO2 27.0 mEq/L 06/10/2015 Comp Metabolic Ykv738 AN ION GAP 11 06/10/2015 Comp Metabolic Ftu051 GL UCOSE 127 mg/dL 06/10/2015 Comp Metabolic Qpa867 Cr eat 1.0 mg/dL 06/10/2015 Comp Metabolic Wwy472 eG FR 59 ml/min/1.73m2 06/10 Comp Metabolic Zar248 BUN 21 mg/dL 06/10/2015 Comp Metabolic Blw885 B/ C Ratio 21.2 Ratio 06/10/2015 Comp Metabolic Ilu633 CA LCIUM 9.2 mg/dL 06/10/2015 Comp Metabolic Kzd016 AL K PHOS 87 U/L 06/10/2015 Comp Metabolic Dyx141 T(SGOT) 20 U/L 06/10/2015 Comp Metabolic Flp352 AL T(SGPT) 17 U/L 06/10/2015 Comp Metabolic Jvn026 BI LI T 0.4 mg/dL 06/10/2015 Comp Metabolic Xpl618 AL BUMIN 4.1 g/dL 06/10/2015 Comp Metabolic Prk731 TP RO 7.2 g/dL 06/10/2015 Comp Metabolic Nvt536 GL OB 3.1 g/dL 06/10/2015 Comp Metabolic Fii517 A/ G Ratio 1.3 Ratio 06/10/2015 Comp Metabolic Pzh295 Os mo 282 mOsmo 06/10/2015 Tsh Ord6 hTSH II 0.86 uIU/mL 06/10/2015 Lipid Ord30 CHOL 161 mg/dL 06/10/2015 Lipid Ord30 HDL 49.0 mg/dl 06/10/2015 Lipid Ord30 TRIG 208 mg/dL 06/10/2015 Lipid Ord30 LDL 70 mg/dL 06/10/2015 Lipid Ord30 C/HDL 3.3 Ratio 06/10/2015 Pt Yfv5800 PT 25.0 seconds 04/09/2015 Pt Fnq7833 INR 2.4 04/09/2015 Pt Ich2784 Low Intensity - 1.5-2.0 04/09/2015 Pt Ekz3298 Mod intensity - 2.0-3.0 04/09/2015 Pt Sxx0851 Hi intensity - 3.0-4.0 04/09/2015 Free T4 Sow942 FREE T4 1.05 ng/dL 01/22/2015 Pt Yux7592 PT 27.2 seconds 01/22/2015 Pt Oeo0302 INR 2.6 01/22/2015 Pt Oci5477 Low Intensity - 1.5-2.0 01/22/2015 Pt Fug1042 Mod intensity - 2.0-3.0 01/22/2015 Pt Uyq1477 Hi intensity - 3.0-4.0 01/22/2015 Cbc With [...] Differential Ord2 RDW 15.2 % 01/22/2015 B12 Yvj075 B12 402.00 pg/ml 01/22/2015 Tsh Ord6 hTSH II 0.65 uIU/mL 01/22/2015 Lipid Ord30 CHOL 166 mg/dL 01/22/2015 Lipid Ord30 HDL 48.0 mg/dl 01/22/2015 Lipid Ord30 TRIG 264 mg/dL 01/22/2015 Lipid Ord30 LDL 65 mg/dL 01/22/2015 Lipid Ord30 C/HDL 3.5 Ratio 01/22/2015 Comp Metabolic Caz553 NA 138 mEq/L 01/22/2015 Comp Metabolic Uoj419 K 4.1 mEq/L 01/22/2015 Comp Metabolic Inh917 CL 104 mEq/L 01/22/2015 Comp Metabolic Tdl818 CO2 29.0 mEq/L 01/22/2015 Comp Metabolic Chu694 AN ION GAP 9 01/22/2015 Comp Metabolic Vtk202 GL UCOSE 106 mg/dL 01/22/2015 Comp Metabolic Woi792 Cr eat 0.9 mg/dL 01/22/2015 Comp Metabolic Pxg196 eG FR 63 ml/min/1.73m2 01/22 Comp Metabolic Yrl045 BUN 21 mg/dL 01/22/2015 Comp Metabolic Zou711 B/ C Ratio 22.3 Ratio 01/22/2015 Comp Metabolic Xkn896 CA LCIUM 9.4 mg/dL 01/22/2015 Comp Metabolic Hrj743 AL K PHOS 83 U/L 01/22/2015 Comp Metabolic Mrw132 T(SGOT) 23 U/L 01/22/2015 Comp Metabolic Dwp224 AL T(SGPT) 18 U/L 01/22/2015 Comp Metabolic Bsb260 BI LI T 0.8 mg/dL 01/22/2015 Comp Metabolic Geb007 AL BUMIN 4.2 g/dL 01/22/2015 Comp Metabolic Cyf582 TP RO 7.3 g/dL 01/22/2015 Comp Metabolic Dxt154 GL OB 3.1 g/dL 01/22/2015 Comp Metabolic Dip572 A/ G Ratio 1.4 Ratio 01/22/2015 Comp Metabolic Iud576 Os mo 279 mOsmo 01/22/2015 Review of [...] Date URINALYSIS NONAUTO W /O SCOPE CPT-4: 84506 03/05/2017 Vital Signs Date Vital 04/14/2018 Blood Pressure 1: 116/78 Code: 8480-6 BMI: 41.6 Code: 68620-0 Heart Rate 1: 72 bpm Height: 5'1" SpO2: 98% Weight: 220 lbs 01/18/2018 Blood Pressure 1: 132/74 Code: 8480-6 BMI: 43.5 Code: 64158-6 Heart Rate 1: 70 bpm Height: 5'1" SpO2: 97% Weight: 230 lbs 01/04/2018 Blood Pressure 1: 134/76 Code: 8480-6 BMI: 42.7 Code: 83832-3 Heart Rate 1: 83 bpm Height: 5'1" SpO2: 98% Weight: 226 lbs 09/23/2017 Blood Pressure 1: 124/76 Code: 8480-6 BMI: 42.3 Code: 50665-7 Heart Rate 1: 94 bpm Height: 5'1" SpO2: 96% Weight: 224 lbs 05/27/2017 Blood Pressure 1: 146/78 Code: 8480-6 BMI: 41.4 Code: 92548-5 Heart Rate 1: 85 bpm Height: 5'1" SpO2: 98% Weight: 219 lbs 02/24/2017 Blood Pressure 1: 138/66 Code: 8480-6 BMI: 41.4 Code: 05837-2 Heart Rate 1: 78 bpm Height: 5'1" SpO2: 97% Weight: 219 lbs 11/02/2016 Blood Pressure 1: 144/72 Code: 8480-6 BMI: 46.1 Code: 03660-6 Heart Rate 1: 78 bpm Height: 5'1" SpO2: 98% Weight: 244 lbs 09/30/2016 Blood Pressure 1: 130/76 Code: 8480-6 BMI: 45.0 Code: 12649-9 Heart Rate 1: 86 bpm Height: 5'1" SpO2: 98% Weight: 238 lbs 09/10/2016 Blood Pressure 1: 136/68 Code: 8480-6 BMI: 46.3 Code: 82804-6 Heart Rate 1: 83 bpm Height: 5'1" SpO2: 98% Weight: 245 lbs 08/20/2016 Blood Pressure 1: 142/78 Code: 8480-6 BMI: 45.3 Code: 85594-6 Heart Rate 1: 84 bpm Height: 5'1" SpO2: 99% Weight: 240 lbs 06/08/2016 Blood Pressure 1: 134/76 Code: 8480-6 BMI: 44.2 Code: 37757-3 Heart Rate 1: 86 bpm Height: 5'1" SpO2: 96% Weight: 234 lbs 04/02/2016 Blood Pressure 1: 142/70 Code: 8480-6 BMI: 44.6 Code: 81946-2 Heart Rate 1: 78 bpm Height: 5'1" SpO2: 97% Weight: 236 lbs 01/14/2016 Blood Pressure 1: 146/72 Code: 8480-6 BMI: 44.2 Code: 37084-5 Heart Rate 1: 86 bpm Height: 5'1" SpO2: 96% Weight: 234 lbs 10/02/2015 Blood Pressure 1: 158/76 Code: 8480-6 BMI: 44.2 Code: 55703-5 Heart Rate 1: 67 bpm Height: 5'1" SpO2: 97% Weight: 234 lbs 07/15/2015 Blood Pressure 1: 200/90 Code: 8480-6 Blood Pressure 1: 148/78 Code: 8480-6 BMI: 44.0 Code: 00652-2 Heart Rate 1: 89 bpm Height: 5'1" SpO2: 97% Weight: 233 lbs 06/10/2015 Blood Pressure 1: 140/82 Code: 8480-6 BMI: 44.0 Code: 52119-5 Heart Rate 1: 78 bpm Height: 5'1" [...] wearing crocs and there was a new [place] on the floor: her foot didn't move [...] Encounters Encounter Performer Loca tion Codes Date ([id number]) [id number] EST. P ATIENT, LEVEL IV Diagnosis: Essential (primary) hypertension[ICD10: I10] Diagnosis: Hypothyroidism, unspecified[ICD10: E03.9] Diagnosis: Impaired fasting glucose[ICD10: R73.01] Diagnosis: nursing home (current) use of anticoagulants[ICD10: Z79.01] Edna Almanza MD, [facility] CPT-4: 33098 04/14/2018 [id number] EST. P ATIENT, LEVEL III Diagnosis: Localized edema[ICD10: R60.0] Diagnosis: Gastro-esophageal reflux disease without esophagitis[ICD10: K21.9] Edna Almanza MD, [facility] CPT-4: 78591 01/18/2018 [id number]) [id number] EST. P ATIENT, LEVEL IV Diagnosis: Gastro-esophageal reflux disease without esophagitis[ICD10: K21.9] Diagnosis: Localized edema[ICD10: R60.0] Diagnosis: Essential (primary) hypertension[ICD10: I10] Diagnosis: Hypothyroidism, unspecified[ICD10: E03.9] Diagnosis: Impaired fasting glucose[ICD10: R73.01] Edna Almanza MD, [facility] CPT-4: 27702 01/04/2018 [id number]) [id number] EST. P ATIENT, LEVEL IV Diagnosis: Essential (primary) hypertension[ICD10: I10] Diagnosis: nursing home (current) use of anticoagulants[ICD10: Z79.01] Diagnosis: Incisional hernia without obstruction or gangrene[ICD10: K43.2] Diagnosis: Right lower quadrant pain[ICD10: R10.31] Sarai Almanza MD, [facility] CPT-4: 91205 09/23/2017 ([id number]) [id number] EST. P ATIENT, LEVEL IV Diagnosis: Essential (primary) hypertension[ICD10: I10] Diagnosis: Mixed hyperlipidemia[ICD10: E78.2] Diagnosis: Hypothyroidism, unspecified[ICD10: E03.9] Diagnosis: Impaired fasting glucose[ICD10: R73.01] Diagnosis: emt intermediate (current) use of anticoagulants[ICD10: Z79.01] Edna Almanza MD, [facility] CPT-4: 67358 05/27/2017 [id number] EST. PATIENT, LEVEL III Diagnosis: Pain in right hip[ICD10: M25.551] Nata Almanza MD, [facility] CPT-4: 29136 02/24/2017 ([id number]) 11305 EST. P ATIENT, LEVEL IV Diagnosis: Essential (primary) hypertension[ICD10: I10] Diagnosis: Localized edema[ICD10: R60.0] Diagnosis: Pain in right hip[ICD10: M25.551] Sarai Almanza MD, [facility] CPT-4: 30353 11/02/2016 ([id number]) 52193 EST. P ATIENT, LEVEL IV Diagnosis: Essential (primary) hypertension[ICD10: I10] Diagnosis: Localized edema[ICD10: R60.0] Sarai Almanza MD, [facility] CPT-4: 72869 09/30/2016 [id number] EST. PATIENT, LEVEL IV Diagnosis: Localized edema[ICD10: R60.0] Diagnosis: Pain in joints of left hand[ICD10: M25.542] Diagnosis: Pain in joints of right hand[ICD10: M25.541] Nata Almanza MD, [facility] CPT-4: 16098 09/10/2016 [id number] EST. PATIENT, LEVEL IV Diagnosis: Localized edema[ICD10: R60.0] Diagnosis: Pain in joints of left hand[ICD10: M25.542] Diagnosis: Pain in joints of right hand[ICD10: M25.541] Diagnosis: Other fatigue[ICD10: R53.83] Nata Almanza MD, [facility] CPT-4: 98640 08/20/2016 [id number] EST. PATIENT, LEVEL IV Diagnosis: Essential (primary) hypertension[ICD10: I10] Diagnosis: Other senior living (current) drug therapy[ICD10: Z79.899] Diagnosis: Tinnitus, bilateral[ICD10: H93.13] Nata Almanza MD, [facility] CPT-4: 68568 06/08/2016 [id number] EST. PATIENT, LEVEL IV Diagnosis: Other allergic rhinitis[ICD10: J30.89] Diagnosis: Acute laryngopharyngitis[ICD10: J06.0] Nata Almanza MD, [facility] CPT-4: 54877 04/02/2016 [id number] EST. PATIENT, LEVEL IV Diagnosis: Left upper quadrant pain[ICD10: R10.12] Nata Almanza MD, [facility] CPT-4: 22713 01/14/2016 02815 EST. PATIENT, LEVEL IV Diagnosis: Pain in left shoulder[ICD10: M25.512] Diagnosis: Body mass index (BMI) 40.0-44.9, adult[ICD10: Z68.41] Nata Almanza MD, [facility] CPT-4: 13685 10/02/2015 66360 EST. PATIENT, LEVEL IV Diagnosis: Pain in left leg[ICD10: M79.605] Diagnosis: Other senior living (current) drug therapy[ICD10: Z79.899] Nata Almanza MD, [facility] CPT-4: 98586 07/15/2015 ([id number]) 60487 EST. 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: Other senior living (current) drug therapy[ICD10: Z79.899] Edna Almanza MD, [facility] CPT-4: 87148 06/10/2015 ([id number]) OFFICE VISI T, NEW - LEVEL 4 Diagnosis: ESSENTIAL HYPERTENSION[ICD9: 401.9] Diagnosis: HYPOTHYROIDISM[ICD9: 244.9] Diagnosis: ENCNTR LONG-RX USE NEC[ICD9: V58.69] Diagnosis: HYPERLIPIDEMIA[ICD9: 272.4] Diagnosis: Vitamin B12 deficiency[ICD9: 266.2] Diagnosis: Status post gastric surgery[ICD9: V45.89] Diagnosis: Snoring[ICD9: 786.09] [facility] CPT-4: 22359 01/22/2015 Plan of Care Planned Activity Notes [...] Hgb A1C 04/14/2018 Appointment: Edna Douglas WPtel: [facility] [place] [phone] (15 min) Moderate 04/14/2018 Patient Education: Patient [...] to further attempt to reduce peripheral edema. [id number]-[id number] prilosec BID and carafate QID -discussed low spice, low acidic diet 01/18/2018 Appointment: Edna Douglas WPtel: [phone] [phone] (15 min) Moderate 01/18/2018 Patient Education: [...] of control. 01/04/2018 Appointment: Edna Douglas WPtel: [address] [place], [place] [phone] (30 min) [facility] 01/04/2018 Patient Education: Patient Medication Summary Completed 01/04/2018 Care Plan: SCREENINGMAMMOGRAPHYDIGITAL LOINC : 33075-6 Pending 01/04/2018 Visit Plan: Abdominal hernia - not able to be taken to surgery by local providers and pt has been seen at [facility] and that surgeon felt like Kat would [...] home. 09/23/2017 Appointment: [facility] [phone] [facility] [place] (15 min) Moderate 09/23/2017 Patient [...] medications. 05/27/2017 Appointment: [phone] [place] (30 min) Complex 05/27/2017 Patient Education: [...] [place]. 02/24/2017 Appointment: Nata Hsu WPtel[phone] (30 min) Complex 02/24/2017 Patient Education: Patient [...] [place]. 11/02/2016 Appointment: [facility] [phone] [facility] [place] (15 min) Moderate 11/02/2016 Patient [...] edema. 09/30/2016 Appointment: [facility] [phone] [facility] [place] (15 min) Moderate 09/30/2016 Patient [...] peripheral edema. 09/10/2016 Appointment: Nata Hsu WPtel: [address] [place] [address] (30 min) Complex 09/10/2016 Patient Education: Patient [...] peripheral edema. 08/20/2016 Appointment: Nata Hsu WPtel: [address] [place] [address] (30 min) Complex 08/20/2016 Patient Education: Patient Medication Summary Completed 08/20/2016 Referral: Otf Lee [address] Referral Initiated 07/02/2016 Visit Plan: Chronic [...] 06/08/2016 Care Plan: Referral Order SNOMED-CT : [id number] Pending 06/08/2016 Visit Plan: URI - Pt [...] spray. 04/02/2016 Appointment: Nata Hsu [facility]Ptel[phone] [place] (30 min) Complex 04/02/2016 Patient Education: [...] pain 01/14/2016 Appointment: Edna Douglas WPtel: [phone] [phone] [place] (30 min) Complex 01/14/2016 Patient Education: Patient Medication Summary Completed 01/14/2016 Patient Education: Obesity Completed 01/14/2016 Care Plan: BMI Above normal followup DAVID F-MGMT EDUC & TRAIN 1 PT Pending 10/24/2015 Care Plan: X-RAY EXAM OF SHOULDER LOINC : 72541-5 Pending 10/24/2015 Visit Plan: Left shoulder pain [...] weight check. 10/02/2015 Appointment: Edna Douglas WPtel: [phone] (15 min) Moderate 10/02/2015 Patient Education: Patient [...] ses Completed 06/10/2015 Appointment: Sarai Almanza WPtel: [facility] (15 min) Moderate 04/22/2015 Visit Plan: Hypertension [...] have surgical fixation - planning occurring at [facility]. Snoring - Sleep apnea symptoms [...] to medications. 01/22/2015 Appointment: Sarai Almanza WPtel: [facility] [place] New Patient 01/22/2015 Patient Education: Patient Medication Summary Completed 01/22/2015 Patient Education: Hypertension Completed 01/22/2015 [facility] Referral Initiated Instructions Comment . Chronic Anticoagul [...] providers and pt has been seen at [facility] and that surgeon felt like Kat would be better served by Dr. Betancur at [facility]. I have recommended a referral to dr. [...] to further attempt to reduce peripheral edema. [id number]-rlpvzjbc prilosec BID and carafate QID -discussed low [...] have surgical fixation - planning occurring at [facility]. Snoring - Sleep apnea symptoms [...]
--- OUTSIDE RECORDS SUMMARY | 2020-01-16 23:54 | XMS REPORT | CCD ---
Author Author Kat Almanza Organization Sarai Almanza MD, [facility] Address [address] [place] [address] Phone Care Team Providers Care Booking Agent Name Role Phone PP Unavailable CCM Unavailable Summary Purpose Interface Exchange Insurance Providers Payer name Policy type / Coverage type Covered republican ID Effective Begin Date Effective End Date WPS Medicare Part B Medicare Part B [id number] 2017 Unknown [employer] [place] Medicare Part B [id number] 2017 Unknown Family history Father Diagnosis Age At Onset Hyperlipidemia Unknown Heart Attack Unknown Mother Diagnosis Age At Onset Arthritis Unknown Social History Social History Element Codes Description Effective Dates Marital status Unknown M arried Nathan 09/30/2016 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 Number of children Unknown 3 01/22/[address]: 892845742 Never smoker 01/22/[address]: 707768034 Never drinks alcohol 01/22/2015 Allergies, Adverse Reactions, [...] 780.79 ICD-10: R53.83 Active 08/20/2016 Unknown 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 04/18/2018 10/14/2018 Ac tive Generic For:ZYLOPRIM 300 MG TABLET 03/22 9:13:47 AM Lasix 20 mg tablet RxNorm: 099445 TAKE ONE TABLET BY MOUTH DAILY 04/18/2018 08/15/2018 Ac tive Generic For:LASIX 20MG 04/18/2018 9:13: 50 AM Carafate 1 gram tablet RxNorm: 241312 TAKE ONE TABLET BY MOUTH BEFORE MEALS AN D AT BEDTIME 04/18/2018 05/17/2018 Inactive Generic For:CARAFATE 1GM 1 9:32:51 AM Coumadin 5 mg tablet RxNorm: 153098 TAKE 1 TABLET BY MOUTH DIRECTED 03/21/2018 09/16/2018 Ac tive Generic For:COUMADIN 5MG TAB 03/21/2018 9:13:00 AM Carafate 1 gram tablet RxNorm: 152068 TAKE ONE TABLET BY MOUTH BEFORE MEALS AN D AT BEDTIME 03/21/2018 04/17/2018 Inactive Generic For:CARAFATE 1GM 1 9:14:24 AM Carafate 1 gram tablet RxNorm: 168052 1 Tablet(s) PO AC & HS 02/17/2018 03/20/2018 Inactive atenolol 100 mg tablet RxNorm: 074958 1 Tablet(s) PO daily 02/04/2018 09/01/2018 Active atenolol 50 mg tablet RxNorm: 273251 1 Tablet(s) PO daily 02/03/2018 02/03/2018 Inactive omeprazole 20 mg cap sean,delayed release RxNorm: 471878 1 Capsule(s) BID 01/21/2018 01/15/2019 Ac tive Generic For:PRILOSEC 20MG 07/22/2017 8:5 8:20 AM Carafate 1 gram tablet RxNorm: 621970 1 Tablet(s) PO AC & HS 01/21/2018 02/16/2018 Inactive Carafate 1 gram tablet RxNorm: 237728 1 Tablet(s) PO AC & HS 01/18/2018 01/20/2018 Inactive Carafate 1 gram tablet RxNorm: 091614 1 Tablet(s) PO AC & HS 01/18/2018 02/27/2018 Inactive Carafate 1 gram tablet RxNorm: 870863 1 Tablet(s) PO AC & HS TAKE ONE TABLET B Y MOUTH TWICE DAILY 01/18/2018 05/17/2018 Inactive Generic For:CARAFATE 1GM 0 12/20/2017 9:10:56 AM omeprazole 20 mg cap sean,delayed release RxNorm: 742746 Capsule(s) TAKE 1 CAP SEAN BY MOUTH EVERY DAY 01/17/2018 01/20/2018 Inactive Generic For:PRILOSEC 20MG 0 07/22/2017 8:58:20 AM omeprazole 20 mg cap sean,delayed release RxNorm: 872370 Capsule(s) TAKE 1 CAP SEAN BY MOUTH EVERY DAY 01/14/2018 01/16/2018 Inactive Generic For:PRILOSEC 20MG 07/22/2017 8:58:20 AM clonazepam 0.5 mg ta blet RxNorm: 578735 1 Tablet(s) PO BID 01/07/2018 06/05/2018 Active Plavix 75 mg tablet RxNorm: 956231 1 Tablet(s) PO daily 01/07/2018 07/05/2018 Active Carafate 1 gram tablet RxNorm: 646920 1 Tablet(s) PO AC & HS 01/04/2018 01/17/2018 Inactive sodium bicarbonate 6 50 mg tablet RxNorm: 022574 TAKE 2 TABLETS BY JAVON TH TWICE DAILY 12/20/2017 06/17/2018 Ac tive 12/20/2017 9:10:59 AM Lasix 20 mg tablet RxNorm: 967918 TAKE ONE TABLET BY MOUTH DAILY 12/20/2017 04/17/2018 In active Generic For:LASIX 20MG 12/20/2017 9:11: 03 AM Carafate 1 gram tablet RxNorm: 826164 TAKE ONE TABLET BY MOUTH TWICE DAILY 12/20/2017 01/17/2018 In active Generic For:CARAFATE 1GM 12/20/2017 9:1 0:56 AM Synthroid 137 mcg ta blet RxNorm: 575974 TAKE 1 TABLET BY MOUT H ONCE DAILY 11/19/2017 05/17/2018 In active Generic For:SYNTHROID 137MCG TAB 2017 8:58:04 AM Detrol LA 4 mg capsu le,extended release RxNorm: 366973 TAKE 1 CAPSULE BY JAVON TH ONCE DAILY 10/20/2017 04/13/2018 Inactive Generic For:DETROL LA 4MG C AP 10/20/2017 9:01:56 AM allopurinol 300 mg t ablet RxNorm: 662296 TAKE 1 TABLET BY MOUT H ONCE DAILY. 10/20/2017 04/17/2018 In active Generic For:ZYLOPRIM 300 MG TABLET 07/2017 9:01:59 AM Coumadin 5 mg tablet RxNorm: 898297 1 Tablet(s) PO UD 10/01/2017 03/20/2018 Inactive cyclobenzaprine 5 mg tablet RxNorm: 447274 1 Tablet(s) PO TID as needed myscle spasm 09/23/2017 10/12/2017 Inactive Lipitor 40 mg tablet RxNorm: 337504 TAKE 1 TABLET BY MOUTH ONCE DAILY 09/20/2017 09/14/2018 Ac tive Generic For:LIPITOR 40MG 09/20/2017 8:5 6:04 AM atenolol 100 mg tablet RxNorm: 877036 1 Tablet(s) PO daily 08/30/2017 02/03/2018 Inactive atenolol 50 mg tablet RxNorm: 487780 1 Tablet(s) PO daily 08/30/2017 08/30/2017 Inactive Lovenox 30 mg/0.3 mL subcutaneous syringe RxNorm: 270544 0.3 Milliliter(s) SQ Q12H 08/24/2017 09/06/2017 In active Lasix 20 mg tablet RxNorm: 559173 TAKE ONE TABLET BY MOUTH DAILY 08/23/2017 12/19/2017 In active Generic For:LASIX 20MG 08/21/2017 9:04: 27 AM Synthroid 137 mcg ta blet RxNorm: 368867 TAKE 1 TABLET BY MOUT H ONCE DAILY 08/23/2017 11/18/2017 In active Generic For:SYNTHROID 137MCG TAB 2017 9:04:30 AM Lovenox 30 mg/0.3 mL subcutaneous syringe RxNorm: 417951 0.3 Milliliter(s) SQ Q12H 08/10/2017 08/23/2017 In active clonazepam 0.5 mg ta blet RxNorm: 808111 1 Tablet(s) PO BID 08/04/2017 12/30/2017 Inactive Coumadin 4 mg tablet RxNorm: 848223 TAKE 1 TABLET BY MOUTH THREE TIMES PER [place] (WEDNESDAY, WEDNESDAY AND WEDNESDAY) 07/22/2017 02/16/2018 Inactive Generic For:COUMADIN 4MG 07/22/2017 8:58:26 AM Coumadin 4 mg tablet RxNorm: 593644 TAKE 1 TABLET BY MOUTH THREE TIMES PER [place] (WEDNESDAY, WEDNESDAY AND WEDNESDAY) 07/22/2017 02/16/2018 Inactive Generic For:COUMADIN 4MG 07/22/2017 8:58:26 AM omeprazole 20 mg cap sean,delayed release RxNorm: 084795 TAKE 1 CAPSULE BY JAVON TH EVERY DAY 07/22/2017 01/13/2018 Inactive Generic For:PRILOSEC 20MG 07/22/2017 8: 58:20 AM venlafaxine ER 75 mg capsule,extended release 24 hr RxNorm: 815423 TAKE 1 CAPSULE BY MOUTH ONCE DAILY 06/22/2017 06/16/2018 Active Generic For:*EFFEXOR XR 75MG 06/19/2017 12:23:45 PM sodium bicarbonate 6 50 mg tablet RxNorm: 911934 TAKE 2 TABLETS BY JAVON TH TWICE DAILY 06/22/2017 12/18/2017 In active 06/19/2017 12:23:30 PM Coumadin 5 mg tablet RxNorm: 967474 1 Tablet(s) PO UD 06/01/2017 09/30/2017 Inactive Keflex 500 mg capsule RxNorm: 372571 1 Capsule(s) PO TID 05/27/2017 06/02/2017 Inactive spironolactone 25 mg tablet RxNorm: 814580 1 Tablet(s) PO daily 05/24/2017 05/18/2018 Inactive Synthroid 137 mcg ta blet RxNorm: 975480 TAKE 1 TABLET BY MOUT H ONCE DAILY 05/24/2017 08/21/2017 In active Generic For:SYNTHROID 137MCG TAB 2016 8:55:59 AM Carafate 1 gram tablet RxNorm: 347896 TAKE ONE TABLET BY MOUTH TWICE DAILY 05/24/2017 12/19/2017 In active Generic For:CARAFATE 1GM 05/24/2017 8:5 5:54 AM Detrol LA 4 mg capsu le,extended release RxNorm: 807015 1 Capsule(s) PO daily TAKE 1 CAPSULE BY MOUTH ONCE DAILY 05/10/2017 10/19/2017 Inactive Generic For:DETROL LA 4MG CAP 02/19/2017 2:36:00 PM Lasix 20 mg tablet RxNorm: 704168 TAKE ONE TABLET BY MOUTH DAILY 04/23/2017 08/20/2017 In active Generic For:LASIX 20MG 04/23/2017 9:04: 01 AM Coumadin 4 mg tablet RxNorm: 563742 TAKE 1 TABLET BY MOUTH THREE TIMES PER [place] (WEDNESDAY, WEDNESDAY AND WEDNESDAY) 04/23/2017 07/21/2017 Inactive Generic For:COUMADIN 4MG 04/23/2017 9:04:05 AM allopurinol 300 mg t ablet RxNorm: 986311 TAKE 1 TABLET BY MOUT H ONCE DAILY. 04/23/2017 10/19/2017 In active Generic For:ZYLOPRIM 300 MG TABLET 08/2016 9:03:57 AM potassium chloride 2 0 mEq/15 mL oral liquid RxNorm: 946922 Milliliter(s) 30 Milliliter(s) (40mEq) PO daily 03/24/2017 07/21/2017 Inactive Lovenox 30 mg/0.3 mL subcutaneous syringe RxNorm: 506581 0.3 Milliliter(s) SQ Q12H 03/22/2017 03/26/2017 In active Lovenox 30 mg/0.3 mL subcutaneous syringe RxNorm: 185557 0.3 Milliliter(s) SQ Q12H 03/19/2017 03/20/2017 In active Lovenox 30 mg/0.3 mL subcutaneous syringe RxNorm: 880813 0.3 Milliliter(s) SQ Q12H 03/16/2017 03/18/2017 In active clonazepam 0.5 mg ta blet RxNorm: 567493 1 Tablet(s) PO BID 03/02/2017 07/28/2017 Inactive Lovenox 30 mg/0.3 mL subcutaneous syringe RxNorm: 294332 1 injection SQ BID do NOT take the night time dose the day before surgery, or the morning dose the day of surgery 03/01/2017 03/07/2017 Inactive Lovenox 30 mg/0.3 mL subcutaneous syringe RxNorm: 546962 1 injection SQ BID 03/01/2017 02/28/2017 In active Detrol LA 4 mg capsu le,extended release RxNorm: 535257 TAKE 1 CAPSULE BY JAVON TH ONCE DAILY 02/19/2017 05/09/2017 Inactive Generic For:DETROL LA 4MG C AP 02/19/2017 2:36:00 PM hydrocodone 5 mg-humberto taminophen 325 mg tablet RxNorm: 376574 1-2 Tablet(s) PO Q6 P RN 02/04/2017 No Stop Date Active Zetia 10 mg tablet RxNorm: 596342 TAKE 1 TABLET BY MOUTH DAILY 01/25/2017 04/13/2018 Inactive 01/23/2017 9:03:48 AM omeprazole 20 mg cap sean,delayed release RxNorm: 712226 TAKE 1 CAPSULE BY JAVON TH EVERY DAY 01/25/2017 07/21/2017 Inactive Generic For:PRILOSEC 20MG 01/23/2017 9: 03:45 AM Coumadin 4 mg tablet RxNorm: 160986 TAKE 1 TABLET BY MOUTH THREE TIMES PER [place] (WEDNESDAY, WEDNESDAY AND WEDNESDAY) 01/25/2017 04/22/2017 Inactive Generic For:COUMADIN 4MG 01/23/2017 9:03:51 AM sodium bicarbonate 6 50 mg tablet RxNorm: 411642 TAKE 2 TABLETS BY JAVON TH TWICE DAILY 12/24/2016 06/21/2017 In active 12/24/2016 9:09:27 AM Lasix 20 mg tablet RxNorm: 103969 1 Tablet(s) PO daily 12/24/2016 04/22/2017 Inactive Synthroid 137 mcg ta blet RxNorm: 398570 TAKE 1 TABLET BY MOUT H ONCE DAILY 11/24/2016 05/22/2017 In active Generic For:SYNTHROID 137MCG TAB 2016 9:04:37 AM Coumadin 4 mg tablet RxNorm: 217431 TAKE 1 TABLET BY MOUTH THREE TIMES PER [place] (WEDNESDAY, WEDNESDAY AND WEDNESDAY) 11/24/2016 01/22/2017 Inactive Generic For:COUMADIN 4MG 11/24/2016 9:04:41 AM hydrocodone 5 mg-humberto taminophen 325 mg tablet RxNorm: 246325 1-2 Tablet(s) PO Q6 P RN 11/17/2016 02/03/2017 In active Carafate 1 gram tablet RxNorm: 531388 TAKE ONE TABLET BY MOUTH TWICE DAILY 10/27/2016 05/23/2017 In active Generic For:CARAFATE 1GM 10/26/2016 8:3 9:42 AM allopurinol 300 mg t ablet RxNorm: 258981 Tablet(s) TAKE 1 TABL ET BY MOUTH ONCE DAILY. 10/26/2016 04/22/2017 Inactive Lipitor 40 mg tablet RxNorm: 569709 1 Tablet(s) PO daily 09/25/2016 09/19/2017 Inactive Coumadin 4 mg tablet RxNorm: 392502 TAKE 1 TABLET BY MOUTH THREE TIMES PER [place] (WEDNESDAY, WEDNESDAY AND WEDNESDAY) 09/25/2016 11/23/2016 Inactive Generic For:COUMADIN 4MG 09/25/2016 8:55:58 AM Zetia 10 mg tablet RxNorm: 195743 1 Tablet(s) PO daily 09/25/2016 01/22/2017 Inactive gave 1 month of samples clonazepam 0.5 mg ta blet RxNorm: 324877 1 Tablet(s) PO BID 09/21/2016 02/16/2017 Inactive Lasix 20 mg tablet RxNorm: 269169 1 Tablet(s) PO daily 09/15/2016 12/23/2016 Inactive potassium chloride 2 0 mEq/15 mL oral liquid RxNorm: 268963 Milliliter(s) 30 Milliliter(s) (40mEq) PO daily 09/15/2016 01/12/2017 Inactive Lasix 20 mg tablet RxNorm: 783874 2 Tablet(s) PO daily 09/10/2016 09/12/2016 Inactive Lasix 20 mg tablet RxNorm: 103540 1 Tablet(s) PO daily 08/28/2016 08/30/2016 Inactive Lasix 20 mg tablet RxNorm: 463494 1 Tablet(s) PO daily 08/20/2016 08/22/2016 Inactive Detrol LA 4 mg capsu le,extended release RxNorm: 439057 TAKE 1 CAPSULE BY JAVON TH ONCE DAILY 07/27/2016 02/18/2017 Inactive Generic For:DETROL LA 4MG C AP 07/27/2016 9:08:27 AM Coumadin 4 mg tablet RxNorm: 999699 1 Tablet(s) PO 3 x week tue th and sun 07/27/2016 09/24/2016 In active omeprazole 20 mg cap sean,delayed release RxNorm: 663239 Capsule(s) PO TAKE 1 CAPSULE BY MOUTH ONCE DAILY 07/27/2016 01/22/2017 Inactive venlafaxine ER 75 mg capsule,extended release 24 hr RxNorm: 337227 1 Capsule(s) PO daily 06/29/2016 06/21/2017 Inactive sodium bicarbonate 6 50 mg tablet RxNorm: 888937 TAKE 2 TABLETS BY JAVON TH TWICE DAILY 06/29/2016 12/23/2016 In active 06/27/2016 9:05:39 AM Coumadin 4 mg tablet RxNorm: 745259 1 Tablet(s) PO 3 x week tue th and sun 06/09/2016 06/08/2016 In active Coumadin 4 mg tablet RxNorm: 735167 1 Tablet(s) PO 3 x week e thur and sun 06/09/2016 07/26/2016 In active Zetia 10 mg tablet RxNorm: 402878 1 Tablet(s) PO daily 06/09/2016 06/08/2016 Inactive gave 1 month of samples Zetia 10 mg tablet RxNorm: 918789 1 Tablet(s) PO daily 06/09/2016 09/24/2016 Inactive gave 1 month of samples Effexor 75 mg tablet RxNorm: 815482 1 Tablet(s) PO daily 06/08/2016 06/28/2016 Inactive spironolactone 25 mg tablet RxNorm: 665603 1 Tablet(s) PO daily 06/08/2016 05/23/2017 Inactive Synthroid 137 mcg ta blet RxNorm: 380498 1 Tablet(s) PO daily 05/07/2016 11/02/2016 Inactive allopurinol 300 mg t ablet RxNorm: 088789 Tablet(s) TAKE 1 TABL ET BY MOUTH ONCE DAILY. 04/28/2016 10/24/2016 Inactive clonazepam 0.5 mg ta blet RxNorm: 442584 1 Tablet(s) PO BID 04/20/2016 09/15/2016 Inactive Flonase Allergy Reli ef 50 mcg/actuation nasal spray,suspension RxNorm: 9992786 1 [place] NASAL BID 04/02/2016 No Stop Date Active Zithromax Z-Thomas 250 mg tablet RxNorm: 823374 Tablet(s) PO 04/02/2016 08/27/2016 Inactive cetirizine 10 mg tablet RxNorm: 6620288 1 Tablet(s) PO daily 04/02/2016 05/01/2016 Inactive Carafate 1 gram tablet RxNorm: 964628 Tablet(s) TAKE 1 TABLET TWICE A DAY FOR 30 DAYS 03/30/2016 10/25/2016 Inactive Generic For:CARAFATE 1GM 02/08/2015 12:3 6:39 PM Plavix 75 mg tablet RxNorm: 515456 1 Tablet(s) PO daily 03/11/2016 09/06/2016 Inactive sodium bicarbonate 6 50 mg tablet RxNorm: 480273 Tablet(s) 2 Tablet(s) PO BID 02/28/2016 06/26/2016 In active omeprazole 20 mg cap sean,delayed release RxNorm: 541528 Capsule(s) PO TAKE 1 CAPSULE BY MOUTH ONCE DAILY 01/31/2016 07/26/2016 Inactive Fish Oil 1,000 mg ca psule RxNorm: 1 Capsule(s) PO BID 01/14/2016 No Stop Date Active Synthroid 137 mcg ta blet RxNorm: 861517 1 Tablet(s) PO daily 01/14/2016 05/06/2016 Inactive Detrol LA 4 mg capsu le,extended release RxNorm: 047596 TAKE 1 CAPSULE BY JAVON TH ONCE DAILY 12/30/2015 07/26/2016 Inactive Generic For:DETROL LA 4MG C AP 12/30/2015 9:11:01 AM potassium chloride 2 0 mEq/15 mL oral liquid RxNorm: 884271 Milliliter(s) 30 Milliliter(s) (40mEq) PO daily 12/02/2015 03/30/2016 Inactive sodium bicarbonate 6 50 mg tablet RxNorm: 826163 Tablet(s) 2 Tablet(s) PO BID 10/31/2015 02/27/2016 In active Lipitor 40 mg tablet RxNorm: 756638 1 Tablet(s) PO daily 10/09/2015 09/24/2016 Inactive sodium bicarbonate 6 50 mg tablet RxNorm: 394397 2 Tablet(s) PO BID 10/01/2015 10/30/2015 Inactive allopurinol 300 mg t ablet RxNorm: 878040 TAKE 1 TABLET BY MOUT H ONCE DAILY. 10/01/2015 04/27/2016 In active Generic For:ZYLOPRIM 300 MG TABLET 09/19 9:21:15 AM clonazepam 0.5 mg ta blet RxNorm: 724898 1 Tablet(s) PO BID 09/30/2015 04/19/2016 Inactive Coumadin 5 mg tablet RxNorm: 090429 1 Tablet(s) PO daily 09/27/2015 05/31/2017 Inactive Generic For:COUMADIN 5MG TAB N O T I C E PRESCRIPTION PREVIOUSLY AUTHORIZED BY DOCTOR:BOBBY ZULETA Synthroid 125 mcg ta blet RxNorm: 161736 1 Tablet(s) PO daily 09/27/2015 09/26/2015 Inactive Synthroid 125 mcg ta blet RxNorm: 801124 1 Tablet(s) PO daily 09/27/2015 01/13/2016 Inactive Carafate 1 gram tablet RxNorm: 986289 Tablet(s) TAKE 1 TABLET TWICE A DAY FOR 30 DAYS 09/02/2015 03/29/2016 Inactive Generic For:CARAFATE 1GM 02/08/2015 12:3 6:39 PM sodium bicarbonate 6 50 mg tablet RxNorm: 036617 2 Tablet(s) PO BID 09/02/2015 09/30/2015 Inactive Prilosec 20 mg capsu le,delayed release RxNorm: 548983 TAKE 1 CAPSULE BY JAVON TH ONCE DAILY 08/02/2015 01/28/2016 Inactive Generic For:PRILOSEC 20MG 08/02/2015 10:03:09 AM N O T I C E PRESCRIPTION PREVIOUSLY AUTHORIZED BY DOCTOR:BOBBY ZULETA Zyrtec 10 mg capsule RxNorm: 8733743 1 Capsule(s) PO daily 07/15/2015 08/13/2015 Inactive Keflex 500 mg capsule RxNorm: 181183 1 Capsule(s) PO TID 07/15/2015 07/21/2015 Inactive cetirizine 10 mg cap sean RxNorm: 6019795 1 Capsule(s) PO daily 07/15/2015 08/13/2015 Inactive hydrocodone 5 mg-humberto taminophen 325 mg tablet RxNorm: 788194 1-2 Tablet(s) PO Q6 P RN 06/10/2015 11/16/2016 In active sodium bicarbonate 6 50 mg tablet RxNorm: 989907 2 Tablet(s) PO BID 06/03/2015 08/31/2015 Inactive Detrol LA 4 mg capsu le,extended release RxNorm: 173930 TAKE 1 CAPSULE BY JAVON TH ONCE DAILY 06/03/2015 12/29/2015 Inactive Generic For:DETROL LA 4MG C AP N O T I C E PRESCRIPTION PREVIOUSLY AUTHORIZED BY DOCTOR:BOBBY ZULETA atenolol 50 mg tablet RxNorm: 170603 1 Tablet(s) PO daily TAKE 1 TABLET BY MO UTH DAILY 05/07/2015 08/23/2017 Inactive Generic For:TENORMIN 50MG 05/04/2015 9:07:22 AM spironolactone 25 mg tablet RxNorm: 847186 1 Tablet(s) PO daily 05/06/2015 06/07/2016 Inactive venlafaxine ER 75 mg capsule,extended release 24 hr RxNorm: 736114 1 Capsule(s) PO daily 05/04/2015 06/28/2016 Inactive atenolol 50 mg tablet RxNorm: 747920 TAKE 1 TABLET BY MOUTH DAILY 05/04/2015 05/06/2015 Inactive Generic For:TENORMIN 50MG 05/04/2015 9: 07:22 AM Synthroid 150 mcg ta blet RxNorm: 719247 TAKE 1 TABLET BY MOUT H ONCE DAILY. 04/05/2015 09/26/2015 In active Generic For:SYNTHROID 150MCG TAB 2014 4:45:40 PM N O T I C E PRESCRIPTION PREVIOUSLY AUTHORIZED BY DOCTOR:BOBBY ZULETA Effexor 75 mg tablet RxNorm: 056058 1 Tablet(s) PO daily 04/05/2015 07/03/2015 Inactive Coumadin 5 mg tablet RxNorm: 330581 TAKE 1 AND 1/2 TABLETS BY MOUTH ONCE MYRANDA LY 04/04/2015 09/26/2015 In active Generic For:COUMADIN 5MG TAB N O T I C E PRESCRIPTION PREVIOUSLY AUTHORIZED BY DOCTOR:BOBBY ZULETA clonazepam 0.5 mg ta blet RxNorm: 404743 1 Tablet(s) PO BID 03/13/2015 11/05/2015 Inactive sodium bicarbonate 6 50 mg tablet RxNorm: 557899 2 Tablet(s) PO BID 03/08/2015 06/02/2015 Inactive allopurinol 300 mg t ablet RxNorm: 226826 TAKE 1 TABLET BY MOUT H ONCE DAILY. 03/05/2015 09/30/2015 In active N O T I C E PRESCRIPTION PREVIOUSLY A UTHORIZED BY DOCTOR:BOBBY ZULETA Plavix 75 mg tablet RxNorm: 170418 1 Tablet(s) PO daily 02/12/2015 09/09/2015 Inactive clonazepam 0.5 mg ta blet RxNorm: 320940 1 Tablet(s) PO BID 02/11/2015 03/11/2015 Inactive Carafate 1 gram tablet RxNorm: 057938 TAKE 1 TABLET TWICE A DAY FOR 30 DAYS 02/08/2015 02/07/2015 In active Generic For:CARAFATE 1GM 02/08/2015 12:3 6:39 PM Carafate 1 gram tablet RxNorm: 999807 Tablet(s) TAKE 1 TABLET TWICE A DAY FOR 30 DAYS 02/08/2015 09/01/2015 Inactive Generic For:CARAFATE 1GM 02/08/2015 12:3 6:39 PM potassium chloride 2 0 mEq/15 mL oral liquid RxNorm: 645956 30 Milliliter(s) (40m Eq) PO daily 02/05/2015 12/01/2015 Inactive atenolol 50 mg tablet RxNorm: 732767 1 Tablet(s) PO daily 02/04/2015 05/03/2015 Inactive [SAVINGS FOR NON-COVERED DRUGS -- BIN:00 3585, PCN: ASPROD1, Group: XXXXX, ID# [id number], Questions: . THIS IS NOT INSURANCE.] potassium chloride 2 0 mEq/15 mL oral liquid RxNorm: 323526 30 Milliliter(s) (40m Eq) PO daily 01/08/2015 02/04/2015 Inactive potassium chloride 2 0 mEq/15 mL oral liquid RxNorm: 839148 30 Milliliter(s) (40m Eq) PO daily 12/07/2014 01/07/2015 Inactive atenolol 50 mg tablet RxNorm: 115875 1 Tablet(s) PO daily 11/09/2014 11/08/2014 Inactive atenolol 50 mg tablet RxNorm: 636735 1 Tablet(s) PO daily 11/09/2014 02/03/2015 Inactive [SAVINGS FOR NON-COVERED DRUGS -- BIN:00 3585, PCN: ASPROD1, Group: XXXXX, ID# [id number], Questions: . THIS IS NOT INSURANCE.] Voltaren 1 % topical gel RxNorm: 975988 TOP No St art Date Active verapamil ER (HS) 24 0 mg tablet,extended release 24 hr RxNorm: 172946 1 Tablet(s) PO daily No Start Date Active aspirin 81 mg tablet RxNorm: 979099 1 Tablet(s) PO daily No Start Date Active Zofran 4 mg tablet RxNorm: 723366 1 Tablet(s) PO PRN No Start Date Active B12 1000 mcg RxNorm: 1 Tablet(s) PO daily No Start Date Active magnesium oxide 400 mg capsule RxNorm: 768658 2 Capsule(s) PO BID No Start Date Active Synthroid 150 mcg ta blet RxNorm: 573693 1 Tablet(s) PO daily No Start Date 04/04/2015 Inactive Coumadin 5 mg tablet RxNorm: 801755 1 Tablet(s) PO daily No Start Date 04/03/2015 Inactive cranberry 1,000 mg c apsule RxNorm: 973881 1 Capsule(s) PO daily No Start Date 04/13/2018 Inactive allopurinol 300 mg t ablet RxNorm: 350934 1 Tablet(s) PO daily No Start Date 03/04/2015 Inactive Prilosec 20 mg capsu le,delayed release RxNorm: 578750 1 Capsule(s) PO PRN No Start Date 08/01/2015 Inactive potassium chloride 2 0 mEq/15 mL oral liquid RxNorm: 810302 30 Milliliter(s) (40m Eq) PO daily No Start Date 12/06/2014 Inactive atenolol 50 mg tablet RxNorm: 795585 1 Tablet(s) PO daily No Start Date 08/29/2017 Inactive Lipitor 40 mg tablet RxNorm: 841268 1 Tablet(s) PO daily No Start Date 09/19/2017 Inactive Effexor 75 mg tablet RxNorm: 390525 1 Tablet(s) PO daily No Start Date 04/04/2015 Inactive Carafate 1 gram tablet RxNorm: 593106 1 Tablet(s) PO BID No Start Date 02/07/2015 Inactive clonazepam 0.5 mg ta blet RxNorm: 799506 1 Tablet(s) PO BID No Start Date 02/10/2015 Inactive Plavix 75 mg tablet RxNorm: 544907 1 Tablet(s) PO daily No Start Date 02/11/2015 Inactive sodium bicarbonate 6 50 mg tablet RxNorm: 488782 2 Tablet(s) PO BID No Start Date 09/01/2015 Inactive Lovenox 30 mg/0.3 mL subcutaneous syringe RxNorm: 936241 0.3 Milliliter(s) SQ Q12H No Start Date 03/15/2017 Inactive Fish Oil 1,000 mg ca psule RxNorm: 1 Capsule(s) PO daily No Start Date 01/13/2016 Inactive Detrol LA 4 mg capsu le,extended release RxNorm: 828584 1 Capsule(s) PO daily No Start Date 06/02/2015 Inactive Medication Administered No Medication Administered data Immunizations Vaccine Codes Date Status SHINGARIX CVX: 121 03/23 completed Assessments Condition Codes Effectiv e Dates intermediate frame tender (current) use of anticoagulants ICD-10: Z79.01 ICD-9: [...] bilateral ICD-10: H93.13 ICD-9: 388.31 06/08/2016 Other detention (current) drug therapy ICD-10: Z79.899 [...] 11 ICD-9: 719.41 06/10/2015 Snoring ICD-9: 786.09 HYPOTHYROIDISM ICD-9: 244.9 01/22/2015 Status post gastric surgery ICD-9: V45.89 01/22/2015 ENCNTR LONG-RX USE NEC ICD-9: V58.69 01/22/2015 HYPERLIPIDEMIA ICD-9: 272.4 01/22/2015 ESSENTIAL HYPERTENSION ICD-9: 401.9 01/22/2015 Vitamin B12 deficiency ICD-9: 266.2 01/22/2015 [...] Code Item Item Code Result Date Pt Fic4477 PT 16.8 seconds 05/10/2018 Pt Qds0850 INR 1.4 05/10/2018 Pt Bid7787 Low Intensity - 1.5-2.0 05/10/2018 Pt Ltd3825 Mod intensity - 2.0-3.0 05/10/2018 Pt Azf8610 Hi intensity - 3.0-4.0 05/10/2018 Pt Mtk9201 PT 16.7 seconds 05/04/2018 Pt Mes7175 INR 1.4 05/04/2018 Pt Lit2213 Low Intensity - 1.5-2.0 05/04/2018 Pt Wbl5188 Mod intensity - 2.0-3.0 05/04/2018 Pt Tbb5217 Hi intensity - 3.0-4.0 05/04/2018 Free T4 Izy368 FREE T4 1.09 ng/dL 04/14/2018 Tsh Ord6 TSH (3rd IS) 2.36 uIU/mL 04/14/2018 Pt Vrp3520 PT 20.3 seconds 04/14/2018 Pt Gzn3293 INR 1.8 04/14/2018 Pt Ssn6537 Low Intensity - 1.5-2.0 04/14/2018 Pt Jcy9991 Mod intensity - 2.0-3.0 04/14/2018 Pt Lff2863 Hi intensity - 3.0-4.0 04/14/2018 Lipid Ord30 CHOL 149 mg/dL 04/14/2018 Lipid Ord30 HDL 49.0 mg/dl 04/14/2018 Lipid Ord30 TRIG 161 mg/dL 04/14/2018 Lipid Ord30 LDL 68 mg/dL 04/14/2018 Lipid Ord30 C/HDL 3.0 Ratio 04/14/2018 %Hba1C Ckw212 % HbA1c 86931-1 5.9 % 04/14/2018 %Hba1C Gtu298 Gluc Ave 123 mg/dL 04/14/2018 Comp Metabolic Tte366 NA 140 mEq/L 04/14/2018 Comp Metabolic Qsw967 K 4.1 mEq/L 04/14/2018 Comp Metabolic Myd732 CL 105 mEq/L 04/14/2018 Comp Metabolic Imb529 CO2 28.0 mEq/L 04/14/2018 Comp Metabolic Zeh639 AN ION GAP 11 04/14/2018 Comp Metabolic Sww198 GL UCOSE 112 mg/dL 04/14/2018 Comp Metabolic Fbv383 Cr eat 1.0 mg/dL 04/14/2018 Comp Metabolic Viu691 eG FR 58 ml/min/1.73m2 04/14 Comp Metabolic Ikl516 BUN 20 mg/dL 04/14/2018 Comp Metabolic Izi700 B/ C Ratio 20.2 Ratio 04/14/2018 Comp Metabolic Yju081 CA LCIUM 10.0 mg/dL 04/14/2018 Comp Metabolic Yjd998 AL K PHOS 51 U/L 04/14/2018 Comp Metabolic Idg595 T(SGOT) 24 U/L 04/14/2018 Comp Metabolic Inu995 AL T(SGPT) 21 U/L 04/14/2018 Comp Metabolic Qhe800 BI LI T 0.8 mg/dL 04/14/2018 Comp Metabolic Uaz201 AL BUMIN 4.2 g/dL 04/14/2018 Comp Metabolic Qkj318 TP RO 7.1 g/dL 04/14/2018 Comp Metabolic Bei311 GL OB 2.9 g/dL 04/14/2018 Comp Metabolic Sxs562 A/ G Ratio 1.5 Ratio 04/14/2018 Comp Metabolic Qxu138 Os mo 283 mOsmo 04/14/2018 Cbc With [...] 30.7 pg 04/14/2018 Cbc With Differential Ord2 Stone% 10.6 % 04/14/2018 Cbc With Differential Ord2 [...] 1.18 K/ul 04/14/2018 Cbc With Differential Ord2 Stone ABS# 0.5 K/ul 04/14/2018 Cbc With Differential Ord2 Eos ABS# 0.2 K/ul 04/14/2018 Cbc With Differential Ord2 Baso ABS# 0.1 K/ul 04/14/2018 Pt Evc3235 PT 29.3 seconds 02/11/2018 Pt Eup6457 INR 2.8 02/11/2018 Pt Iac9845 Low Intensity - 1.5-2.0 02/11/2018 Pt Wjs0360 Mod intensity - 2.0-3.0 02/11/2018 Pt Sjc2733 Hi intensity - 3.0-4.0 02/11/2018 Lipid Ord30 CHOL 156 mg/dL 01/05/2018 Lipid Ord30 HDL 48.0 mg/dl 01/05/2018 Lipid Ord30 TRIG 207 mg/dL 01/05/2018 Lipid Ord30 LDL 67 mg/dL 01/05/2018 Lipid Ord30 C/HDL 3.3 Ratio 01/05/2018 Tsh Ord6 TSH (3rd IS) 2.34 uIU/mL 01/05/2018 Pt Arn2994 PT 20.7 seconds 01/05/2018 Pt Duv2917 INR 1.8 01/05/2018 Pt Cux9109 Low Intensity - 1.5-2.0 01/05/2018 Pt Vac8499 Mod intensity - 2.0-3.0 01/05/2018 Pt Abr7067 Hi intensity - 3.0-4.0 01/05/2018 Cbc With [...] 30.6 pg 01/05/2018 Cbc With Differential Ord2 Stone% 10.5 % 01/05/2018 Cbc With Differential Ord2 [...] 1.27 K/ul 01/05/2018 Cbc With Differential Ord2 Stone ABS# 0.5 K/ul 01/05/2018 Cbc With Differential Ord2 Eos ABS# 0.2 K/ul 01/05/2018 Cbc With Differential Ord2 Baso ABS# 0.1 K/ul 01/05/2018 Comp Metabolic Nit970 NA 141 mEq/L 01/05/2018 Comp Metabolic Biy096 K 3.7 mEq/L 01/05/2018 Comp Metabolic Pny359 CL 102 mEq/L 01/05/2018 Comp Metabolic Kcu446 CO2 29.0 mEq/L 01/05/2018 Comp Metabolic Jcx390 AN ION GAP 14 01/05/2018 Comp Metabolic Ysv097 GL UCOSE 136 mg/dL 01/05/2018 Comp Metabolic Gyp993 Cr eat 1.0 mg/dL 01/05/2018 Comp Metabolic Ysf260 eG FR 61 ml/min/1.73m2 01/05 Comp Metabolic Neu426 BUN 22 mg/dL 01/05/2018 Comp Metabolic Sqg653 B/ C Ratio 22.9 Ratio 01/05/2018 Comp Metabolic Clg108 CA LCIUM 9.7 mg/dL 01/05/2018 Comp Metabolic Fid198 AL K PHOS 57 U/L 01/05/2018 Comp Metabolic Knz009 T(SGOT) 21 U/L 01/05/2018 Comp Metabolic Det073 AL T(SGPT) 19 U/L 01/05/2018 Comp Metabolic Ofn790 BI LI T 0.9 mg/dL 01/05/2018 Comp Metabolic Kct060 AL BUMIN 4.1 g/dL 01/05/2018 Comp Metabolic Vsk903 TP RO 7.1 g/dL 01/05/2018 Comp Metabolic Hta226 GL OB 3.0 g/dL 01/05/2018 Comp Metabolic Zhr988 A/ G Ratio 1.4 Ratio 01/05/2018 Comp Metabolic Gnr757 Os mo 287 mOsmo 01/05/2018 %Hba1C Qaj344 % HbA1c 66488-1 6.0 % 01/05/2018 %Hba1C Yht805 Gluc Ave 126 mg/dL 01/05/2018 Free T4 Tmv506 FREE T4 1.05 ng/dL 01/05/2018 Pt Ikj7257 PT 28.3 seconds 11/26/2017 Pt Rvg0582 INR 2.6 11/26/2017 Pt Fix3889 Low Intensity - 1.5-2.0 11/26/2017 Pt Gps1973 Mod intensity - 2.0-3.0 11/26/2017 Pt Ssn9112 Hi intensity - 3.0-4.0 11/26/2017 Pt Gby2837 PT 36.5 seconds 11/19/2017 Pt Yfo8082 INR 3.6 11/19/2017 Pt Uub9761 Low Intensity - 1.5-2.0 11/19/2017 Pt Rch1536 Mod intensity - 2.0-3.0 11/19/2017 Pt Abr2755 Hi intensity - 3.0-4.0 11/19/2017 Pt Ozr9802 PT 22.9 seconds 10/15/2017 Pt Qls4499 INR 2.0 10/15/2017 Pt Vqa9392 Low Intensity - 1.5-2.0 10/15/2017 Pt Moh2220 Mod intensity - 2.0-3.0 10/15/2017 Pt Hlz3387 Hi intensity - 3.0-4.0 10/15/2017 Pt Lpl4461 PT 25.9 seconds 10/01/2017 Pt Lhr0443 INR 2.4 10/01/2017 Pt Bar4313 Low Intensity - 1.5-2.0 10/01/2017 Pt Hjt1167 Mod intensity - 2.0-3.0 10/01/2017 Pt Yzh0665 Hi intensity - 3.0-4.0 10/01/2017 Pt Hzy6885 PT 20.6 seconds 09/24/2017 Pt Nzk4717 INR 1.8 09/24/2017 Pt Ckc1406 Low Intensity - 1.5-2.0 09/24/2017 Pt Obu9908 Mod intensity - 2.0-3.0 09/24/2017 Pt Ode7283 Hi intensity - 3.0-4.0 09/24/2017 Pt Pzw8674 PT 21.0 seconds 09/15/2017 Pt Kev7528 INR 1.8 09/15/2017 Pt Olw8286 Low Intensity - 1.5-2.0 09/15/2017 Pt Yum1368 Mod intensity - 2.0-3.0 09/15/2017 Pt Yfr9707 Hi intensity - 3.0-4.0 09/15/2017 Pt Yuq0130 PT 19.0 seconds 09/03/2017 Pt Gql3394 INR 1.6 09/03/2017 Pt Vfk7286 Low Intensity - 1.5-2.0 09/03/2017 Pt Rah9596 Mod intensity - 2.0-3.0 09/03/2017 Pt Mty7415 Hi intensity - 3.0-4.0 09/03/2017 Pt Xzw3782 PT 17.6 seconds 08/23/2017 Pt Prz4360 INR 1.5 08/23/2017 Pt Ocu0156 Low Intensity - 1.5-2.0 08/23/2017 Pt Lrr3665 Mod intensity - 2.0-3.0 08/23/2017 Pt Iqv3197 Hi intensity - 3.0-4.0 08/23/2017 Pt Qlo1713 PT 12.7 seconds 08/20/2017 Pt Zrp6310 INR 1.0 08/20/2017 Pt Eje8101 Low Intensity - 1.5-2.0 08/20/2017 Pt Dlf2597 Mod intensity - 2.0-3.0 08/20/2017 Pt Zvi9945 Hi intensity - 3.0-4.0 08/20/2017 Pt Aaf8907 PT 12.9 seconds 08/17/2017 Pt Mpv9171 INR 1.0 08/17/2017 Pt Qyf0148 Low Intensity - 1.5-2.0 08/17/2017 Pt Dlb8217 Mod intensity - 2.0-3.0 08/17/2017 Pt Glk0621 Hi intensity - 3.0-4.0 08/17/2017 Pt Elq0960 PT 18.5 seconds 08/10/2017 Pt Krh9969 INR 1.6 08/10/2017 Pt Xgr7709 Low Intensity - 1.5-2.0 08/10/2017 Pt Bgj3545 Mod intensity - 2.0-3.0 08/10/2017 Pt Vcb7047 Hi intensity - 3.0-4.0 08/10/2017 Comp Metabolic Jly800 NA 138 mEq/L 05/27/2017 Comp Metabolic Feq308 K 4.1 mEq/L 05/27/2017 Comp Metabolic Xuq726 CL 101 mEq/L 05/27/2017 Comp Metabolic Plr403 CO2 31.0 mEq/L 05/27/2017 Comp Metabolic Kmo318 AN ION GAP 10 05/27/2017 Comp Metabolic Azn219 GL UCOSE 117 mg/dL 05/27/2017 Comp Metabolic Chd358 Cr eat 0.9 mg/dL 05/27/2017 Comp Metabolic Cmd592 eG FR 62 ml/min/1.73m2 05/27 Comp Metabolic Uok258 BUN 25 mg/dL 05/27/2017 Comp Metabolic Wwm089 B/ C Ratio 26.6 Ratio 05/27/2017 Comp Metabolic Vde270 CA LCIUM 9.5 mg/dL 05/27/2017 Comp Metabolic Wop840 AL K PHOS 73 U/L 05/27/2017 Comp Metabolic Xty301 T(SGOT) 18 U/L 05/27/2017 Comp Metabolic Rku749 AL T(SGPT) 12 U/L 05/27/2017 Comp Metabolic Ugq334 BI LI T 0.5 mg/dL 05/27/2017 Comp Metabolic Gyg847 AL BUMIN 4.1 g/dL 05/27/2017 Comp Metabolic Hap633 TP RO 7.1 g/dL 05/27/2017 Comp Metabolic Zme631 GL OB 3.0 g/dL 05/27/2017 Comp Metabolic Ida774 A/ G Ratio 1.3 Ratio 05/27/2017 Comp Metabolic Tyt437 Os mo 281 mOsmo 05/27/2017 Free T4 Fek495 FREE T4 0.91 ng/dL 05/27/2017 Tsh Ord6 [...] 87.8 fl 05/27/2017 Cbc With Differential Ord2 Stone% 8.1 % 05/27/2017 Cbc With Differential Ord2 MCH 29.3 pg 05/27/2017 Cbc With Differential Ord2 Eos% 3.2 % 05/27/2017 Cbc With Differential Ord2 MCHC 33.4 pg 05/27/2017 Cbc With Differential Ord2 Baso% 1.1 % 05/27/2017 Cbc With Differential Ord2 PLT 239 K/ul 05/27/2017 Cbc With Differential Ord2 Neut ABS# 5.49 K/ul 05/27/2017 Cbc With Differential Ord2 RDW 14.4 % 05/27/2017 Cbc With Differential Ord2 Lymph ABS# 1.11 K/ul 05/27/2017 Cbc With Differential Ord2 Stone ABS# 0.6 K/ul 05/27/2017 Cbc With Differential Ord2 Eos ABS# 0.2 K/ul 05/27/2017 Cbc With Differential Ord2 Baso ABS# 0.1 K/ul 05/27/2017 Pt Mpk1830 PT 28.2 seconds 05/27/2017 Pt Fel3096 INR 2.6 05/27/2017 Pt Bca7432 Low Intensity - 1.5-2.0 05/27/2017 Pt Xla0584 Mod intensity - 2.0-3.0 05/27/2017 Pt Qrt4177 Hi intensity - 3.0-4.0 05/27/2017 Lipid Ord30 CHOL 167 mg/dL 05/27/2017 Lipid Ord30 HDL 49.0 mg/dl 05/27/2017 Lipid Ord30 TRIG 347 mg/dL 05/27/2017 Lipid Ord30 LDL 49 mg/dL 05/27/2017 Lipid Ord30 C/HDL 3.4 Ratio 05/27/2017 Magnesium Ord90 Mag 1.4 mg/dL 05/27/2017 %Hba1C Iys143 % HbA1c 67593-6 5.9 % 05/27/2017 %Hba1C Xtt342 Gluc Ave 123 mg/dL 05/27/2017 Pt Ank3711 PT 29.2 seconds 04/16/2017 Pt Xfb2952 INR 2.7 04/16/2017 Pt Trl1201 Low Intensity - 1.5-2.0 04/16/2017 Pt Vdj6181 Mod intensity - 2.0-3.0 04/16/2017 Pt Tyl5695 Hi intensity - 3.0-4.0 04/16/2017 Pt Lkv6200 PT 30.7 seconds 03/31/2017 Pt Umt4045 INR 2.9 03/31/2017 Pt Eml6122 Low Intensity - 1.5-2.0 03/31/2017 Pt Xwf3688 Mod intensity - 2.0-3.0 03/31/2017 Pt Oko2457 Hi intensity - 3.0-4.0 03/31/2017 Pt Bqm6177 PT 21.3 seconds 03/26/2017 Pt Bbw2504 INR 1.9 03/26/2017 Pt Deb3591 Low Intensity - 1.5-2.0 03/26/2017 Pt Hcn3897 Mod intensity - 2.0-3.0 03/26/2017 Pt Ftd8554 Hi intensity - 3.0-4.0 03/26/2017 Pt Uaj4254 PT 19.8 seconds 03/22/2017 Pt Hfe8167 INR 1.7 03/22/2017 Pt Tmn8554 Low Intensity - 1.5-2.0 03/22/2017 Pt Gdm4156 Mod intensity - 2.0-3.0 03/22/2017 Pt Nsk7672 Hi intensity - 3.0-4.0 03/22/2017 Pt Ncu8481 PT 15.6 seconds 03/19/2017 Pt Mgi6287 INR 1.3 03/19/2017 Pt Aob1729 Low Intensity - 1.5-2.0 03/19/2017 Pt Vwr9420 Mod intensity - 2.0-3.0 03/19/2017 Pt Ryf2386 Hi intensity - 3.0-4.0 03/19/2017 Pt Apv1961 PT 13.7 seconds 03/15/2017 Pt Ryc6718 INR 1.1 03/15/2017 Pt Bkr8524 Low Intensity - 1.5-2.0 03/15/2017 Pt Sgt0690 Mod intensity - 2.0-3.0 03/15/2017 Pt Cvi4219 Hi intensity - 3.0-4.0 03/15/2017 Pt Jpw4244 PT 25.8 seconds 01/28/2017 Pt Zkw9332 INR 2.4 01/28/2017 Pt Ggv3578 Low Intensity - 1.5-2.0 01/28/2017 Pt Mlr6168 Mod intensity - 2.0-3.0 01/28/2017 Pt Mls6102 Hi intensity - 3.0-4.0 01/28/2017 Comp Metabolic Bdf523 NA 138 mEq/L 10/23/2016 Comp Metabolic Uio427 K 3.4 mEq/L 10/23/2016 Comp Metabolic Uje235 CL 100 mEq/L 10/23/2016 Comp Metabolic Hvs459 CO2 30.0 mEq/L 10/23/2016 Comp Metabolic Amr002 AN ION GAP 11 10/23/2016 Comp Metabolic Jcc958 GL UCOSE 139 mg/dL 10/23/2016 Comp Metabolic Ohv571 Cr eat 0.9 mg/dL 10/23/2016 Comp Metabolic Fvs566 eG FR 62 ml/min/1.73m2 10/23 Comp Metabolic Stz240 BUN 22 mg/dL 10/23/2016 Comp Metabolic Fwm454 B/ C Ratio 23.4 Ratio 10/23/2016 Comp Metabolic Xjf045 CA LCIUM 8.7 mg/dL 10/23/2016 Comp Metabolic Wzo805 AL K PHOS 66 U/L 10/23/2016 Comp Metabolic Zxh797 T(SGOT) 20 U/L 10/23/2016 Comp Metabolic Jew576 AL T(SGPT) 10 U/L 10/23/2016 Comp Metabolic Isw778 BI LI T 0.5 mg/dL 10/23/2016 Comp Metabolic Wgl704 AL BUMIN 3.5 g/dL 10/23/2016 Comp Metabolic Ins799 TP RO 6.3 g/dL 10/23/2016 Comp Metabolic Fwh603 GL OB 2.8 g/dL 10/23/2016 Comp Metabolic Ixr915 A/ G Ratio 1.3 Ratio 10/23/2016 Comp Metabolic Kmq530 Os mo 281 mOsmo 10/23/2016 %Hba1C Tlc803 % HbA1c 80900-0 6.4 % 10/23/2016 %Hba1C Uxn794 Gluc Ave 137 mg/dL 10/23/2016 Pt Nel6099 PT 26.8 seconds 10/23/2016 Pt Xjd8626 INR 2.7 10/23/2016 Pt Cfv1703 Low Intensity - 1.5-2.0 10/23/2016 Pt Fbm5459 Mod intensity - 2.0-3.0 10/23/2016 Pt Btx9070 Hi intensity - 3.0-4.0 10/23/2016 Pt Xhm9990 PT 28.3 seconds 09/25/2016 Pt Aif2178 INR 2.8 09/25/2016 Pt Aab8936 Low Intensity - 1.5-2.0 09/25/2016 Pt Wfp7866 Mod intensity - 2.0-3.0 09/25/2016 Pt Siq0189 Hi intensity - 3.0-4.0 09/25/2016 Metabolic Ord15 [...] Metabolic Ord15 CALCIUM 8.8 mg/dL 09/25/2016 Pt Pqj8954 PT 30.6 seconds 09/11/2016 Pt Lqe9601 INR 3.2 09/11/2016 Pt Kze2420 Low Intensity - 1.5-2.0 09/11/2016 Pt Nea0736 Mod intensity - 2.0-3.0 09/11/2016 Pt Vff2626 Hi intensity - 3.0-4.0 09/11/2016 Comp Metabolic Gwe847 NA 138 mEq/L 09/11/2016 Comp Metabolic Xqg741 K 4.4 mEq/L 09/11/2016 Comp Metabolic Flo853 CL 103 mEq/L 09/11/2016 Comp Metabolic Vee556 CO2 31.0 mEq/L 09/11/2016 Comp Metabolic Mhh199 AN ION GAP 8 09/11/2016 Comp Metabolic Eep387 GL UCOSE 146 mg/dL 09/11/2016 Comp Metabolic Fir706 Cr eat 1.0 mg/dL 09/11/2016 Comp Metabolic Pht744 eG FR 60 ml/min/1.73m2 09/11 Comp Metabolic Sdw640 BUN 16 mg/dL 09/11/2016 Comp Metabolic Sgm761 B/ C Ratio 16.5 Ratio 09/11/2016 Comp Metabolic Jjk853 CA LCIUM 8.7 mg/dL 09/11/2016 Comp Metabolic Rsc260 AL K PHOS 52 U/L 09/11/2016 Comp Metabolic Bko298 T(SGOT) 19 U/L 09/11/2016 Comp Metabolic Zls279 AL T(SGPT) 11 U/L 09/11/2016 Comp Metabolic Wnn416 BI LI T 0.7 mg/dL 09/11/2016 Comp Metabolic Hyq275 AL BUMIN 3.3 g/dL 09/11/2016 Comp Metabolic Bfg621 TP RO 5.8 g/dL 09/11/2016 Comp Metabolic Fff356 GL OB 2.5 g/dL 09/11/2016 Comp Metabolic Rla703 A/ G Ratio 1.3 Ratio 09/11/2016 Comp Metabolic Qlo208 Os mo 280 mOsmo 09/11/2016 Pt Der0733 PT 27.2 seconds 08/21/2016 Pt Uvr7250 INR 2.7 08/21/2016 Pt Idz7932 Low Intensity - 1.5-2.0 08/21/2016 Pt Tht3592 Mod intensity - 2.0-3.0 08/21/2016 Pt Ots9588 Hi intensity - 3.0-4.0 08/21/2016 Magnesium Ord90 Mag 1.9 mg/dL 08/21/2016 C-Reactive Protein Qnt Crqnt CRP 0.1 mg/dl 08/21/2016 Comp Metabolic Bar917 NA 139 mEq/L 08/21/2016 Comp Metabolic Ukz137 K 4.1 mEq/L 08/21/2016 Comp Metabolic Jqz287 CL 102 mEq/L 08/21/2016 Comp Metabolic Wff610 CO2 30.0 mEq/L 08/21/2016 Comp Metabolic Opp948 AN ION GAP 11 08/21/2016 Comp Metabolic Wsd420 GL UCOSE 148 mg/dL 08/21/2016 Comp Metabolic Cxg974 Cr eat 1.0 mg/dL 08/21/2016 Comp Metabolic Lpq652 eG FR 55 ml/min/1.73m2 08/21 Comp Metabolic Ttq034 BUN 21 mg/dL 08/21/2016 Comp Metabolic Pbl827 B/ C Ratio 20.2 Ratio 08/21/2016 Comp Metabolic Gif820 CA LCIUM 9.4 mg/dL 08/21/2016 Comp Metabolic Ons649 AL K PHOS 63 U/L 08/21/2016 Comp Metabolic Piw987 T(SGOT) 23 U/L 08/21/2016 Comp Metabolic Gid839 AL T(SGPT) 16 U/L 08/21/2016 Comp Metabolic Pvp992 BI LI T 0.6 mg/dL 08/21/2016 Comp Metabolic Gzv979 AL BUMIN 3.9 g/dL 08/21/2016 Comp Metabolic Kpo816 TP RO 6.8 g/dL 08/21/2016 Comp Metabolic Iqu271 GL OB 2.9 g/dL 08/21/2016 Comp Metabolic Unf518 A/ G Ratio 1.4 Ratio 08/21/2016 Comp Metabolic Jmg073 Os mo 283 mOsmo 08/21/2016 Sed Rate Ord21 ESR 16 mm/hr 08/21/2016 Pt Eto9173 PT 25.9 seconds 06/17/2016 Pt Wpl7543 INR 2.5 06/17/2016 Pt Lqu6843 Low Intensity - 1.5-2.0 06/17/2016 Pt Xfs4523 Mod intensity - 2.0-3.0 06/17/2016 Pt Ajs7201 Hi intensity - 3.0-4.0 06/17/2016 Tsh Ord6 hTSH II 2.13 uIU/mL 06/08/2016 Free T4 Nrf623 FREE T4 0.79 ng/dL 06/08/2016 Comp Metabolic Ffl741 NA 138 mEq/L 06/08/2016 Comp Metabolic Wcd799 K 3.9 mEq/L 06/08/2016 Comp Metabolic Eon109 CL 105 mEq/L 06/08/2016 Comp Metabolic Mcj532 CO2 27.0 mEq/L 06/08/2016 Comp Metabolic Yiv243 AN ION GAP 10 06/08/2016 Comp Metabolic Ixn456 GL UCOSE 127 mg/dL 06/08/2016 Comp Metabolic Xuk280 Cr eat 1.0 mg/dL 06/08/2016 Comp Metabolic Nnp050 eG FR 59 ml/min/1.73m2 06/08 Comp Metabolic Zyc306 BUN 19 mg/dL 06/08/2016 Comp Metabolic Xza137 B/ C Ratio 19.4 Ratio 06/08/2016 Comp Metabolic Uaf363 CA LCIUM 9.2 mg/dL 06/08/2016 Comp Metabolic Mfo009 AL K PHOS 77 U/L 06/08/2016 Comp Metabolic Lib822 T(SGOT) 19 U/L 06/08/2016 Comp Metabolic Mve013 AL T(SGPT) 13 U/L 06/08/2016 Comp Metabolic Wqa307 BI LI T 0.5 mg/dL 06/08/2016 Comp Metabolic Vjv655 AL BUMIN 3.8 g/dL 06/08/2016 Comp Metabolic Jvl049 TP RO 6.6 g/dL 06/08/2016 Comp Metabolic Pkw897 GL OB 2.8 g/dL 06/08/2016 Comp Metabolic Gda974 A/ G Ratio 1.4 Ratio 06/08/2016 Comp Metabolic Akx032 Os mo 280 mOsmo 06/08/2016 Pt Ebu8387 PT 36.1 seconds 06/08/2016 Pt Itx0521 INR 3.9 06/08/2016 Pt Ahm5919 Low Intensity - 1.5-2.0 06/08/2016 Pt Mwy4404 Mod intensity - 2.0-3.0 06/08/2016 Pt Bac7309 Hi intensity - 3.0-4.0 06/08/2016 Cbc With [...] 80.8 fl 06/08/2016 Cbc With Differential Ord2 Stone% 12.0 % 06/08/2016 Cbc With Differential Ord2 [...] 1.40 K/ul 06/08/2016 Cbc With Differential Ord2 Stone ABS# 0.7 K/ul 06/08/2016 Cbc With Differential Ord2 Eos ABS# 0.3 K/ul 06/08/2016 Cbc With Differential Ord2 Baso ABS# 0.1 K/ul 06/08/2016 %Hba1C Uxt633 % HbA1c 48963-2 6.2 % 06/08/2016 %Hba1C Pun376 Gluc Ave 131 mg/dL 06/08/2016 Lipid Ord30 CHOL 149 mg/dL 06/08/2016 Lipid Ord30 HDL 46.0 mg/dl 06/08/2016 Lipid Ord30 TRIG 279 mg/dL 06/08/2016 Lipid Ord30 LDL 47 mg/dL 06/08/2016 Lipid Ord30 C/HDL 3.2 Ratio 06/08/2016 Pt Qoi6441 PT 30.9 seconds 02/12/2016 Pt Bqq6643 INR 3.2 02/12/2016 Pt Ljk9146 Low Intensity - 1.5-2.0 02/12/2016 Pt Yja4109 Mod intensity - 2.0-3.0 02/12/2016 Pt Ybp0657 Hi intensity - 3.0-4.0 02/12/2016 Pt Gbv8977 PT 26.2 seconds 09/27/2015 Pt Jml6404 INR 2.5 09/27/2015 Pt Int9724 Low Intensity - 1.5-2.0 09/27/2015 Pt Gms4623 Mod intensity - 2.0-3.0 09/27/2015 Pt Dem9560 Hi intensity - 3.0-4.0 09/27/2015 Tsh Ord6 hTSH II 0.37 uIU/mL 09/27/2015 %Hba1C Ygr754 % HbA1c 15590-5 6.4 % 09/27/2015 %Hba1C Njf012 Gluc Ave 137 mg/dL 09/27/2015 Free T4 Aay160 FREE T4 1.24 ng/dL 09/27/2015 Pt Rxk9009 PT 27.6 seconds 2015 Pt Qqv4177 INR 2.7 2015 Pt Fyy1471 Low Intensity - 1.5-2.0 2015 Pt Afk6281 Mod intensity - 2.0-3.0 2015 Pt Rhv4184 Hi intensity - 3.0-4.0 2015 %Hba1C Rez419 % HbA1c 32312-0 6.1 % 06/11/2015 %Hba1C Zqn917 Gluc Ave 128 mg/dL 06/11/2015 Cbc With [...] Ord2 RDW 15.8 % 06/10/2015 Comp Metabolic Ihe324 NA 139 mEq/L 06/10/2015 Comp Metabolic Bds867 K 4.1 mEq/L 06/10/2015 Comp Metabolic Hlx443 CL 105 mEq/L 06/10/2015 Comp Metabolic Vbv063 CO2 27.0 mEq/L 06/10/2015 Comp Metabolic Bgj864 AN ION GAP 11 06/10/2015 Comp Metabolic Bgl751 GL UCOSE 127 mg/dL 06/10/2015 Comp Metabolic Qgp300 Cr eat 1.0 mg/dL 06/10/2015 Comp Metabolic Mdo672 eG FR 59 ml/min/1.73m2 06/10 Comp Metabolic Spt265 BUN 21 mg/dL 06/10/2015 Comp Metabolic Qri798 B/ C Ratio 21.2 Ratio 06/10/2015 Comp Metabolic Ngx182 CA LCIUM 9.2 mg/dL 06/10/2015 Comp Metabolic Hqp574 AL K PHOS 87 U/L 06/10/2015 Comp Metabolic Sax982 T(SGOT) 20 U/L 06/10/2015 Comp Metabolic Ugs313 AL T(SGPT) 17 U/L 06/10/2015 Comp Metabolic Kua773 BI LI T 0.4 mg/dL 06/10/2015 Comp Metabolic Hwe165 AL BUMIN 4.1 g/dL 06/10/2015 Comp Metabolic Pqd961 TP RO 7.2 g/dL 06/10/2015 Comp Metabolic Lvl161 GL OB 3.1 g/dL 06/10/2015 Comp Metabolic Dqh264 A/ G Ratio 1.3 Ratio 06/10/2015 Comp Metabolic Qyi859 Os mo 282 mOsmo 06/10/2015 Tsh Ord6 hTSH II 0.86 uIU/mL 06/10/2015 Lipid Ord30 CHOL 161 mg/dL 06/10/2015 Lipid Ord30 HDL 49.0 mg/dl 06/10/2015 Lipid Ord30 TRIG 208 mg/dL 06/10/2015 Lipid Ord30 LDL 70 mg/dL 06/10/2015 Lipid Ord30 C/HDL 3.3 Ratio 06/10/2015 Pt Isg6729 PT 25.0 seconds 04/09/2015 Pt Zaa2369 INR 2.4 04/09/2015 Pt Fic9028 Low Intensity - 1.5-2.0 04/09/2015 Pt Ynn3547 Mod intensity - 2.0-3.0 04/09/2015 Pt Rym9650 Hi intensity - 3.0-4.0 04/09/2015 Free T4 Uaq136 FREE T4 1.05 ng/dL 01/22/2015 Lipid Ord30 CHOL 166 mg/dL 01/22/2015 Lipid Ord30 HDL 48.0 mg/dl 01/22/2015 Lipid Ord30 TRIG 264 mg/dL 01/22/2015 Lipid Ord30 LDL 65 mg/dL 01/22/2015 Lipid Ord30 C/HDL 3.5 Ratio 01/22/2015 Comp Metabolic Icf116 NA 138 mEq/L 01/22/2015 Comp Metabolic Vxk081 K 4.1 mEq/L 01/22/2015 Comp Metabolic Hzi171 CL 104 mEq/L 01/22/2015 Comp Metabolic Tts579 CO2 29.0 mEq/L 01/22/2015 Comp Metabolic Hrs447 AN ION GAP 9 01/22/2015 Comp Metabolic Pdp057 GL UCOSE 106 mg/dL 01/22/2015 Comp Metabolic Ycm066 Cr eat 0.9 mg/dL 01/22/2015 Comp Metabolic Wwt836 eG FR 63 ml/min/1.73m2 01/22 Comp Metabolic Yae490 BUN 21 mg/dL 01/22/2015 Comp Metabolic Atz514 B/ C Ratio 22.3 Ratio 01/22/2015 Comp Metabolic Fwi940 CA LCIUM 9.4 mg/dL 01/22/2015 Comp Metabolic Aqx459 AL K PHOS 83 U/L 01/22/2015 Comp Metabolic Mlv280 T(SGOT) 23 U/L 01/22/2015 Comp Metabolic Ite747 AL T(SGPT) 18 U/L 01/22/2015 Comp Metabolic Lki843 BI LI T 0.8 mg/dL 01/22/2015 Comp Metabolic Jrr160 AL BUMIN 4.2 g/dL 01/22/2015 Comp Metabolic Lmq616 TP RO 7.3 g/dL 01/22/2015 Comp Metabolic Jzh203 GL OB 3.1 g/dL 01/22/2015 Comp Metabolic Ahy701 A/ G Ratio 1.4 Ratio 01/22/2015 Comp Metabolic Nzg533 Os mo 279 mOsmo 01/22/2015 Pt Gsp3621 PT 27.2 seconds 01/22/2015 Pt Poo9599 INR 2.6 01/22/2015 Pt Det2627 Low Intensity - 1.5-2.0 01/22/2015 Pt Fwn6622 Mod intensity - 2.0-3.0 01/22/2015 Pt Txz1335 Hi intensity - 3.0-4.0 01/22/2015 B12 Myx527 B12 402.00 pg/ml 01/22/2015 Tsh Ord6 hTSH II 0.65 uIU/mL 01/22/2015 Cbc With Differential Ord2 WBC 5.6 [...] With Differential Ord2 RDW 15.2 % 01/22/2015 Review of Systems System Result Effective [...] Date URINALYSIS NONAUTO W /O SCOPE CPT-4: 48598 03/05/2017 Vital Signs Date Vital 04/14/2018 Blood Pressure 1: 116/78 Code: 8480-6 BMI: 41.6 Code: 69460-2 Heart Rate 1: 72 bpm Height: 5'1" SpO2: 98% Weight: 220 lbs 01/18/2018 Blood Pressure 1: 132/74 Code: 8480-6 BMI: 43.5 Code: 61480-4 Heart Rate 1: 70 bpm Height: 5'1" SpO2: 97% Weight: 230 lbs 01/04/2018 Blood Pressure 1: 134/76 Code: 8480-6 BMI: 42.7 Code: 99232-8 Heart Rate 1: 83 bpm Height: 5'1" SpO2: 98% Weight: 226 lbs 09/23/2017 Blood Pressure 1: 124/76 Code: 8480-6 BMI: 42.3 Code: 28800-1 Heart Rate 1: 94 bpm Height: 5'1" SpO2: 96% Weight: 224 lbs 05/27/2017 Blood Pressure 1: 146/78 Code: 8480-6 BMI: 41.4 Code: 18431-7 Heart Rate 1: 85 bpm Height: 5'1" SpO2: 98% Weight: 219 lbs 02/24/2017 Blood Pressure 1: 138/66 Code: 8480-6 BMI: 41.4 Code: 31844-6 Heart Rate 1: 78 bpm Height: 5'1" SpO2: 97% Weight: 219 lbs 11/02/2016 Blood Pressure 1: 144/72 Code: 8480-6 BMI: 46.1 Code: 80780-2 Heart Rate 1: 78 bpm Height: 5'1" SpO2: 98% Weight: 244 lbs 09/30/2016 Blood Pressure 1: 130/76 Code: 8480-6 BMI: 45.0 Code: 42928-7 Heart Rate 1: 86 bpm Height: 5'1" SpO2: 98% Weight: 238 lbs 09/10/2016 Blood Pressure 1: 136/68 Code: 8480-6 BMI: 46.3 Code: 59489-9 Heart Rate 1: 83 bpm Height: 5'1" SpO2: 98% Weight: 245 lbs 08/20/2016 Blood Pressure 1: 142/78 Code: 8480-6 BMI: 45.3 Code: 87673-2 Heart Rate 1: 84 bpm Height: 5'1" SpO2: 99% Weight: 240 lbs 06/08/2016 Blood Pressure 1: 134/76 Code: 8480-6 BMI: 44.2 Code: 27107-5 Heart Rate 1: 86 bpm Height: 5'1" SpO2: 96% Weight: 234 lbs 04/02/2016 Blood Pressure 1: 142/70 Code: 8480-6 BMI: 44.6 Code: 74104-0 Heart Rate 1: 78 bpm Height: 5'1" SpO2: 97% Weight: 236 lbs 01/14/2016 Blood Pressure 1: 146/72 Code: 8480-6 BMI: 44.2 Code: 00165-6 Heart Rate 1: 86 bpm Height: 5'1" SpO2: 96% Weight: 234 lbs 10/02/2015 Blood Pressure 1: 158/76 Code: 8480-6 BMI: 44.2 Code: 89423-9 Heart Rate 1: 67 bpm Height: 5'1" SpO2: 97% Weight: 234 lbs 07/15/2015 Blood Pressure 1: 200/90 Code: 8480-6 Blood Pressure 1: 148/78 Code: 8480-6 BMI: 44.0 Code: 44734-4 Heart Rate 1: 89 bpm Height: 5'1" SpO2: 97% Weight: 233 lbs 06/10/2015 Blood Pressure 1: 140/82 Code: 8480-6 BMI: 44.0 Code: 61342-6 Heart Rate 1: 78 bpm Height: 5'1" [...] wearing crocs and there was a [place] on the floor: her foot didn't move [...] Encounters Encounter Performer Loca tion Codes Date ([id number]) [id number] EST. P ATIENT, LEVEL IV Diagnosis: Essential (primary) hypertension[ICD10: I10] Diagnosis: Hypothyroidism, unspecified[ICD10: E03.9] Diagnosis: Impaired fasting glucose[ICD10: R73.01] Diagnosis: MCFP (current) use of anticoagulants[ICD10: Z79.01] Edna Almanza MD, [facility] CPT-4: 95373 04/14/2018 ([id number]) [id number] EST. P ATIENT, LEVEL III Diagnosis: Localized edema[ICD10: R60.0] Diagnosis: Gastro-esophageal reflux disease without esophagitis[ICD10: K21.9] Edna Almanza MD, [facility] CPT-4: 32810 01/18/2018 ([id number]) [id number] EST. P ATIENT, LEVEL IV Diagnosis: Gastro-esophageal reflux disease without esophagitis[ICD10: K21.9] Diagnosis: Localized edema[ICD10: R60.0] Diagnosis: Essential (primary) hypertension[ICD10: I10] Diagnosis: Hypothyroidism, unspecified[ICD10: E03.9] Diagnosis: Impaired fasting glucose[ICD10: R73.01] Edna Almanza MD, [facility] CPT-4: 52011 01/04/2018 ([id number]) [id number] EST. P ATIENT, LEVEL IV Diagnosis: Essential (primary) hypertension[ICD10: I10] Diagnosis: MCFP (current) use of anticoagulants[ICD10: Z79.01] Diagnosis: Incisional hernia without obstruction or gangrene[ICD10: K43.2] Diagnosis: Right lower quadrant pain[ICD10: R10.31] Sarai Almanza MD, [facility] CPT-4: 89543 09/23/2017 ([id number]) [id number] EST. P ATIENT, LEVEL IV Diagnosis: Essential (primary) hypertension[ICD10: I10] Diagnosis: Mixed hyperlipidemia[ICD10: E78.2] Diagnosis: Hypothyroidism, unspecified[ICD10: E03.9] Diagnosis: Impaired fasting glucose[ICD10: R73.01] Diagnosis: MCFP (current) use of anticoagulants[ICD10: Z79.01] Edna Almanza MD, [facility] CPT-4: 05148 05/27/2017 [id number] EST. PATIENT, LEVEL III Diagnosis: Pain in right hip[ICD10: M25.551] Nata Almanza MD, [facility] CPT-4: 86308 02/24/2017 ([id number]) [id number] EST. P ATIENT, LEVEL IV Diagnosis: Essential (primary) hypertension[ICD10: I10] Diagnosis: Localized edema[ICD10: R60.0] Diagnosis: Pain in right hip[ICD10: M25.551] Sarai Almanza MD, [facility] CPT-4: 65754 11/02/2016 ([id number]) [id number] EST. P ATIENT, LEVEL IV Diagnosis: Essential (primary) hypertension[ICD10: I10] Diagnosis: Localized edema[ICD10: R60.0] Sarai Almanza MD, [facility] CPT-4: 16970 09/30/2016 [id number] EST. PATIENT, LEVEL IV Diagnosis: Localized edema[ICD10: R60.0] Diagnosis: Pain in joints of left hand[ICD10: M25.542] Diagnosis: Pain in joints of right hand[ICD10: M25.541] Nata Almanza MD, [facility] CPT-4: 40989 09/10/2016 [id number] EST. PATIENT, LEVEL IV Diagnosis: Localized edema[ICD10: R60.0] Diagnosis: Pain in joints of left hand[ICD10: M25.542] Diagnosis: Pain in joints of right hand[ICD10: M25.541] Diagnosis: Other fatigue[ICD10: R53.83] Nata Almanza MD, [facility] CPT-4: [id number] 08/20/2016 55400 EST. PATIENT, LEVEL IV Diagnosis: Essential (primary) hypertension[ICD10: I10] Diagnosis: Other detention (current) drug therapy[ICD10: Z79.899] Diagnosis: Tinnitus, bilateral[ICD10: H93.13] Nata Almanza MD, [facility] CPT-4: 59772 06/08/2016 44727 EST. PATIENT, LEVEL IV Diagnosis: Other allergic rhinitis[ICD10: J30.89] Diagnosis: Acute laryngopharyngitis[ICD10: J06.0] Nata Almanza MD, [facility] CPT-4: 49959 04/02/2016 80171 EST. PATIENT, LEVEL IV Diagnosis: Left upper quadrant pain[ICD10: R10.12] Nata Almanza MD, [facility] CPT-4: 52246 01/14/2016 33630 EST. PATIENT, LEVEL IV Diagnosis: Pain in left shoulder[ICD10: M25.512] Diagnosis: Body mass index (BMI) 40.0-44.9, adult[ICD10: Z68.41] Nata Almanza MD, [facility] CPT-4: 66455 10/02/2015 14955 EST. 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: Other detention (current) drug therapy[ICD10: Z79.899] Edna Almanza MD, [facility] CPT-4: 71828 06/10/2015 ([id number]) OFFICE VISI T, NEW - LEVEL 4 Diagnosis: ESSENTIAL HYPERTENSION[ICD9: 401.9] Diagnosis: HYPOTHYROIDISM[ICD9: 244.9] Diagnosis: ENCNTR LONG-RX USE NEC[ICD9: V58.69] Diagnosis: HYPERLIPIDEMIA[ICD9: 272.4] Diagnosis: Vitamin B12 deficiency[ICD9: 266.2] Diagnosis: Status post gastric surgery[ICD9: V45.89] Diagnosis: Snoring[ICD9: 786.09] Sarai Almanza MD, [facility] CPT-4: 33737 01/22/2015 Plan of Care Planned Activity Notes [...] A1C 04/14/2018 Appointment: Edna Douglas WPtel: [phone] (15 min) Moderate 04/14/2018 Patient Education: [...] to further attempt to reduce peripheral edema. [facility]-mkmwqybs-eldsvvoi prilosec BID and carafate QID -discussed low spice, low acidic diet 01/18/2018 Appointment: Edna Douglas WPtel: [phone] [place] [phone] (15 min) Moderate 01/18/2018 Patient Education: Patient [...] of control. 01/04/2018 Appointment: Edna Douglas WPtel: [address] [place], [place] [phone] (30 min) [facility] 01/04/2018 Patient Education: Patient Medication Summary Completed 01/04/2018 Care Plan: SCREENINGMAMMOGRAPHYDIGITAL LOINC : 36231-4 Pending 01/04/2018 Visit Plan: Abdominal hernia - not able to be taken to surgery by local providers and pt has been seen at [facility] and that surgeon felt like [...] home. 09/23/2017 Appointment: Sarai Almanza [facility]Ptel: [phone] (15 min) Moderate 09/23/2017 Patient [...] medications. 05/27/2017 App[facility]ment: [phone] (30 min) Complex 05/27/2017 Patient Education: [...] Nata Hsu WPtel: [phone] [facility] (30 min) Complex 02/24/2017 Patient Education: [...] dr. Chaney. 11/02/2016 Appointment: Sarai Almanza WPtel: [facility]5 [facility] (15 min) Moderate 11/02/2016 Patient Education: [...] peripheral edema. 09/30/2016 Appointment: Sarai Almanza WPtel: [facility] (15 min) Moderate 09/30/2016 Patient Education: Patient [...] peripheral edema. 09/10/2016 Appointment: Nata Hsu WPtel: [facility] [address] (30 min) Complex 09/10/2016 Patient Education: [...] peripheral edema. 08/20/2016 Appointment: Nata Hsu WPtel: [address] [place] [address] (30 min) Complex 08/20/2016 Patient Education: Patient Medication Summary Completed 08/20/2016 Referral: Otf Lee [address] Referral Initiated 07/02/2016 Visit Plan: Chronic [...] 06/08/2016 Care Plan: Referral Order SNOMED-CT : [id number] Pending 06/08/2016 Visit Plan: URI - Pt [...] allergy spray. 04/02/2016 Appointment: Nata Hsu WPtel: [facility] (30 min) Complex 04/02/2016 Patient Education: [...] pain 01/14/2016 Appointment: Edna Douglas WPtel: [phone] [phone] (30 min) Complex 01/14/2016 Patient Education: Patient Medication Summary Completed 01/14/2016 Patient Education: Obesity Completed 01/14/2016 Care Plan: BMI Above normal followup DAVID F-MGMT EDUC & TRAIN 1 PT Pending 10/24/2015 Care Plan: X-RAY EXAM OF SHOULDER LOINC : 47183-2 Pending 10/24/2015 Visit Plan: Left shoulder pain [...] Edna Douglas WPtel: [phone] [phone] (15 min) Moderate 10/02/2015 Patient Education: [...] ses Completed 06/10/2015 Appointment: Sarai Almanza WPtel: [address] [place] [address] (15 min) Moderate 04/22/2015 Visit Plan: Hypertension [...] have surgical fixation - planning occurring at [facility]. Snoring - Sleep apnea symptoms [...] to medications. 01/22/2015 Appointment: Sarai Almanza WPtel: [address] [place], [place] [phone] [place] ([place]) New Patient 01/22/2015 Patient Education: Patient Medication Summary Completed 01/22/2015 Patient Education: Hypertension Completed 01/22/2015 Referral: Rosa [address] Referral Initiated Instructions Comment CONTINUE LASIX [...] based on previous levels of control. . Edema - pt has bee n [...] have surgical fixation - planning occurring at [facility]. Snoring - Sleep apnea symptoms [...] exercise. Pt will RTC for weight check. CONTINUE LASIX NE EDED FOR SWELLING CHECK [...] providers and pt has been seen at [facility] and that surgeon felt like [...] change in blood pressure readings at home. XRAY RIGHT SHOULDER CUT BACK ON SODIUM/SALTY [...] to further attempt to reduce peripheral edema. BZBN-jomxeqgo-yfchekwi prilosec BID and carafate QID -discussed low [...]
--- OUTSIDE RECORDS SUMMARY | 2020-01-16 23:56 | XMS REPORT | CCD ---
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 Name Role Phone PP Unavailable CCM Unavailable Summary Purpose Interface Exchange Insurance Providers Payer name Policy type / Coverage type Covered republican ID Effective Begin Date Effective End Date WPS Medicare Part B Medicare Part B [id number] 2017 Unknown Bankers Likely Medicare Part B [id number] 2017 Unknown Family history Father Diagnosis Age At Onset Hyperlipidemia Unknown Heart Attack Unknown Mother Diagnosis Age At Onset Arthritis Unknown Social History Social History Element Codes Description Effective Dates Marital status Unknown M arried Nathan 09/30/2016 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 Number of children Unknown 3 01/22/[address]: 461889145 Never smoker 01/22/[address]: 389178403 Never drinks alcohol 01/22/2015 Allergies, Adverse Reactions, [...] ICD-9: 790.21 ICD-10: R73.01 Active 05/27/2017 Unknown residential (current) use of [...] 780.79 ICD-10: R53.83 Active 08/20/2016 Unknown 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 04/18/2018 10/14/2018 Ac tive Generic For:ZYLOPRIM 300 MG TABLET 03/22 9:13:47 AM Lasix 20 mg tablet RxNorm: 058031 TAKE ONE TABLET BY MOUTH DAILY 04/18/2018 08/15/2018 Ac tive Generic For:LASIX 20MG 04/18/2018 9:13: 50 AM Carafate 1 gram tablet RxNorm: 837700 TAKE ONE TABLET BY MOUTH BEFORE MEALS AN D AT BEDTIME 04/18/2018 05/29/2018 Active Generic For:CARAFATE 1GM 9:32:51 AM Coumadin 5 mg tablet RxNorm: 618146 TAKE 1 TABLET BY MOUTH DIRECTED 03/21/2018 09/16/2018 Ac tive Generic For:COUMADIN 5MG TAB 03/21/2018 9:13:00 AM Carafate 1 gram tablet RxNorm: 117123 TAKE ONE TABLET BY MOUTH BEFORE MEALS AN D AT BEDTIME 03/21/2018 04/17/2018 Inactive Generic For:CARAFATE 1GM 1 9:14:24 AM Carafate 1 gram tablet RxNorm: 301692 1 Tablet(s) PO AC & HS 02/17/2018 03/20/2018 Inactive atenolol 100 mg tablet RxNorm: 607668 1 Tablet(s) PO daily 02/04/2018 09/01/2018 Active atenolol 50 mg tablet RxNorm: 602556 1 Tablet(s) PO daily 02/03/2018 02/03/2018 Inactive omeprazole 20 mg cap sean,delayed release RxNorm: 457958 1 Capsule(s) BID 01/21/2018 01/15/2019 Ac tive Generic For:PRILOSEC 20MG 07/22/2017 8:5 8:20 AM Carafate 1 gram tablet RxNorm: 289744 1 Tablet(s) PO AC & HS 01/21/2018 02/16/2018 Inactive Carafate 1 gram tablet RxNorm: 610239 1 Tablet(s) PO AC & HS TAKE ONE TABLET B Y MOUTH TWICE DAILY 01/18/2018 02/14/2018 Inactive Generic For:CARAFATE 1GM 0 12/20/2017 9:10:56 AM Carafate 1 gram tablet RxNorm: 966791 1 Tablet(s) PO AC & HS 01/18/2018 01/20/2018 Inactive Carafate 1 gram tablet RxNorm: 709603 1 Tablet(s) PO AC & HS 01/18/2018 02/27/2018 Inactive omeprazole 20 mg cap sean,delayed release RxNorm: 936878 Capsule(s) TAKE 1 CAP SEAN BY MOUTH EVERY DAY 01/17/2018 01/20/2018 Inactive Generic For:PRILOSEC 20MG 0 07/22/2017 8:58:20 AM omeprazole 20 mg cap sean,delayed release RxNorm: 752989 Capsule(s) TAKE 1 CAP SEAN BY MOUTH EVERY DAY 01/14/2018 01/16/2018 Inactive Generic For:PRILOSEC 20MG 07/22/2017 8:58:20 AM clonazepam 0.5 mg ta blet RxNorm: 680590 1 Tablet(s) PO BID 01/07/2018 06/05/2018 Active Plavix 75 mg tablet RxNorm: 940092 1 Tablet(s) PO daily 01/07/2018 07/05/2018 Active Carafate 1 gram tablet RxNorm: 044740 1 Tablet(s) PO AC & HS 01/04/2018 01/17/2018 Inactive sodium bicarbonate 6 50 mg tablet RxNorm: 952842 TAKE 2 TABLETS BY JAVON TH TWICE DAILY 12/20/2017 06/17/2018 Ac tive 12/20/2017 9:10:59 AM Lasix 20 mg tablet RxNorm: 782890 TAKE ONE TABLET BY MOUTH DAILY 12/20/2017 04/17/2018 In active Generic For:LASIX 20MG 12/20/2017 9:11: 03 AM Carafate 1 gram tablet RxNorm: 895178 TAKE ONE TABLET BY MOUTH TWICE DAILY 12/20/2017 01/17/2018 In active Generic For:CARAFATE 1GM 12/20/2017 9:1 0:56 AM Synthroid 137 mcg ta blet RxNorm: 409131 TAKE 1 TABLET BY MOUT H ONCE DAILY 11/19/2017 05/17/2018 Ac tive Generic For:SYNTHROID 137MCG TAB 2017 8:58:04 AM Detrol LA 4 mg capsu le,extended release RxNorm: 252252 TAKE 1 CAPSULE BY JAVON TH ONCE DAILY 10/20/2017 04/13/2018 Inactive Generic For:DETROL LA 4MG C AP 10/20/2017 9:01:56 AM allopurinol 300 mg t ablet RxNorm: 476720 TAKE 1 TABLET BY MOUT H ONCE DAILY. 10/20/2017 04/17/2018 In active Generic For:ZYLOPRIM 300 MG TABLET 07/2017 9:01:59 AM Coumadin 5 mg tablet RxNorm: 426111 1 Tablet(s) PO UD 10/01/2017 03/20/2018 Inactive cyclobenzaprine 5 mg tablet RxNorm: 029898 1 Tablet(s) PO TID as needed myscle spasm 09/23/2017 10/12/2017 Inactive Lipitor 40 mg tablet RxNorm: 184408 TAKE 1 TABLET BY MOUTH ONCE DAILY 09/20/2017 09/14/2018 Ac tive Generic For:LIPITOR 40MG 09/20/2017 8:5 6:04 AM atenolol 100 mg tablet RxNorm: 487673 1 Tablet(s) PO daily 08/30/2017 02/03/2018 Inactive atenolol 50 mg tablet RxNorm: 880092 1 Tablet(s) PO daily 08/30/2017 08/30/2017 Inactive Lovenox 30 mg/0.3 mL subcutaneous syringe RxNorm: 351421 0.3 Milliliter(s) SQ Q12H 08/24/2017 09/06/2017 In active Lasix 20 mg tablet RxNorm: 781994 TAKE ONE TABLET BY MOUTH DAILY 08/23/2017 12/19/2017 In active Generic For:LASIX 20MG 08/21/2017 9:04: 27 AM Synthroid 137 mcg ta blet RxNorm: 812975 TAKE 1 TABLET BY MOUT H ONCE DAILY 08/23/2017 11/18/2017 In active Generic For:SYNTHROID 137MCG TAB 2017 9:04:30 AM Lovenox 30 mg/0.3 mL subcutaneous syringe RxNorm: 585595 0.3 Milliliter(s) SQ Q12H 08/10/2017 08/23/2017 In active clonazepam 0.5 mg ta blet RxNorm: 481276 1 Tablet(s) PO BID 08/04/2017 12/30/2017 Inactive Coumadin 4 mg tablet RxNorm: 418836 TAKE 1 TABLET BY MOUTH THREE TIMES PER W NOTTAWASEPPI POTAWATOMI (WEDNESDAY, WEDNESDAY AND WEDNESDAY) 07/22/2017 02/16/2018 Inactive Generic For:COUMADIN 4MG 07/22/2017 8:58:26 AM Coumadin 4 mg tablet RxNorm: 961834 TAKE 1 TABLET BY MOUTH THREE TIMES PER W NOTTAWASEPPI POTAWATOMI (WEDNESDAY, WEDNESDAY AND WEDNESDAY) 07/22/2017 02/16/2018 Inactive Generic For:COUMADIN 4MG 07/22/2017 8:58:26 AM omeprazole 20 mg cap sean,delayed release RxNorm: 496512 TAKE 1 CAPSULE BY JAVON TH EVERY DAY 07/22/2017 01/13/2018 Inactive Generic For:PRILOSEC 20MG 07/22/2017 8: 58:20 AM venlafaxine ER 75 mg capsule,extended release 24 hr RxNorm: 765858 TAKE 1 CAPSULE BY MOUTH ONCE DAILY 06/22/2017 06/16/2018 Active Generic For:*EFFEXOR XR 75MG 06/19/2017 12:23:45 PM sodium bicarbonate 6 50 mg tablet RxNorm: 406273 TAKE 2 TABLETS BY JAVON TH TWICE DAILY 06/22/2017 12/18/2017 In active 06/19/2017 12:23:30 PM Coumadin 5 mg tablet RxNorm: 692906 1 Tablet(s) PO UD 06/01/2017 09/30/2017 Inactive Keflex 500 mg capsule RxNorm: 855314 1 Capsule(s) PO TID 05/27/2017 06/02/2017 Inactive spironolactone 25 mg tablet RxNorm: 354643 1 Tablet(s) PO daily 05/24/2017 05/18/2018 Active Synthroid 137 mcg ta blet RxNorm: 139425 TAKE 1 TABLET BY MOUT H ONCE DAILY 05/24/2017 08/21/2017 In active Generic For:SYNTHROID 137MCG TAB 2016 8:55:59 AM Carafate 1 gram tablet RxNorm: 485057 TAKE ONE TABLET BY MOUTH TWICE DAILY 05/24/2017 12/19/2017 In active Generic For:CARAFATE 1GM 05/24/2017 8:5 5:54 AM Detrol LA 4 mg capsu le,extended release RxNorm: 590914 1 Capsule(s) PO daily TAKE 1 CAPSULE BY MOUTH ONCE DAILY 05/10/2017 10/19/2017 Inactive Generic For:DETROL LA 4MG CAP 02/19/2017 2:36:00 PM Lasix 20 mg tablet RxNorm: 307529 TAKE ONE TABLET BY MOUTH DAILY 04/23/2017 08/20/2017 In active Generic For:LASIX 20MG 04/23/2017 9:04: 01 AM Coumadin 4 mg tablet RxNorm: 711676 TAKE 1 TABLET BY MOUTH THREE TIMES PER W NOTTAWASEPPI POTAWATOMI (WEDNESDAY, WEDNESDAY AND WEDNESDAY) 04/23/2017 07/21/2017 Inactive Generic For:COUMADIN 4MG 04/23/2017 9:04:05 AM allopurinol 300 mg t ablet RxNorm: 152634 TAKE 1 TABLET BY MOUT H ONCE DAILY. 04/23/2017 10/19/2017 In active Generic For:ZYLOPRIM 300 MG TABLET 08/2016 9:03:57 AM potassium chloride 2 0 mEq/15 mL oral liquid RxNorm: 757334 Milliliter(s) 30 Milliliter(s) (40mEq) PO daily 03/24/2017 07/21/2017 Inactive Lovenox 30 mg/0.3 mL subcutaneous syringe RxNorm: 097885 0.3 Milliliter(s) SQ Q12H 03/22/2017 03/26/2017 In active Lovenox 30 mg/0.3 mL subcutaneous syringe RxNorm: 897223 0.3 Milliliter(s) SQ Q12H 03/19/2017 03/20/2017 In active Lovenox 30 mg/0.3 mL subcutaneous syringe RxNorm: 630232 0.3 Milliliter(s) SQ Q12H 03/16/2017 03/18/2017 In active clonazepam 0.5 mg ta blet RxNorm: 139186 1 Tablet(s) PO BID 03/02/2017 07/28/2017 Inactive Lovenox 30 mg/0.3 mL subcutaneous syringe RxNorm: 439326 1 injection SQ BID do NOT take the night time dose the day before surgery, or the morning dose the day of surgery 03/01/2017 03/07/2017 Inactive Lovenox 30 mg/0.3 mL subcutaneous syringe RxNorm: 958129 1 injection SQ BID 03/01/2017 02/28/2017 In active Detrol LA 4 mg capsu le,extended release RxNorm: 254036 TAKE 1 CAPSULE BY JAVON TH ONCE DAILY 02/19/2017 05/09/2017 Inactive Generic For:DETROL LA 4MG C AP 02/19/2017 2:36:00 PM hydrocodone 5 mg-humberto taminophen 325 mg tablet RxNorm: 520374 1-2 Tablet(s) PO Q6 P RN 02/04/2017 No Stop Date Active Zetia 10 mg tablet RxNorm: 863381 TAKE 1 TABLET BY MOUTH DAILY 01/25/2017 04/13/2018 Inactive 01/23/2017 9:03:48 AM omeprazole 20 mg cap sean,delayed release RxNorm: 689300 TAKE 1 CAPSULE BY JAVON TH EVERY DAY 01/25/2017 07/21/2017 Inactive Generic For:PRILOSEC 20MG 01/23/2017 9: 03:45 AM Coumadin 4 mg tablet RxNorm: 183276 TAKE 1 TABLET BY MOUTH THREE TIMES PER W NOTTAWASEPPI POTAWATOMI (WEDNESDAY, WEDNESDAY AND WEDNESDAY) 01/25/2017 04/22/2017 Inactive Generic For:COUMADIN 4MG 01/23/2017 9:03:51 AM sodium bicarbonate 6 50 mg tablet RxNorm: 668222 TAKE 2 TABLETS BY JAVON TH TWICE DAILY 12/24/2016 06/21/2017 In active 12/24/2016 9:09:27 AM Lasix 20 mg tablet RxNorm: 980094 1 Tablet(s) PO daily 12/24/2016 04/22/2017 Inactive Synthroid 137 mcg ta blet RxNorm: 453498 TAKE 1 TABLET BY MOUT H ONCE DAILY 11/24/2016 05/22/2017 In active Generic For:SYNTHROID 137MCG TAB 2016 9:04:37 AM Coumadin 4 mg tablet RxNorm: 404166 TAKE 1 TABLET BY MOUTH THREE TIMES PER W NOTTAWASEPPI POTAWATOMI (WEDNESDAY, WEDNESDAY AND WEDNESDAY) 11/24/2016 01/22/2017 Inactive Generic For:COUMADIN 4MG 11/24/2016 9:04:41 AM hydrocodone 5 mg-humberto taminophen 325 mg tablet RxNorm: 975502 1-2 Tablet(s) PO Q6 P RN 11/17/2016 02/03/2017 In active Carafate 1 gram tablet RxNorm: 316498 TAKE ONE TABLET BY MOUTH TWICE DAILY 10/27/2016 05/23/2017 In active Generic For:CARAFATE 1GM 10/26/2016 8:3 9:42 AM allopurinol 300 mg t ablet RxNorm: 749352 Tablet(s) TAKE 1 TABL ET BY MOUTH ONCE DAILY. 10/26/2016 04/22/2017 Inactive Lipitor 40 mg tablet RxNorm: 957579 1 Tablet(s) PO daily 09/25/2016 09/19/2017 Inactive Coumadin 4 mg tablet RxNorm: 563253 TAKE 1 TABLET BY MOUTH THREE TIMES PER W NOTTAWASEPPI POTAWATOMI (WEDNESDAY, WEDNESDAY AND WEDNESDAY) 09/25/2016 11/23/2016 Inactive Generic For:COUMADIN 4MG 09/25/2016 8:55:58 AM Zetia 10 mg tablet RxNorm: 256637 1 Tablet(s) PO daily 09/25/2016 01/22/2017 Inactive gave 1 month of samples clonazepam 0.5 mg ta blet RxNorm: 879740 1 Tablet(s) PO BID 09/21/2016 02/16/2017 Inactive Lasix 20 mg tablet RxNorm: 1 Tablet(s) PO daily 09/15/2016 12/23/2016 Inactive potassium chloride 2 0 mEq/15 mL oral liquid RxNorm: 893813 Milliliter(s) 30 Milliliter(s) (40mEq) PO daily 09/15/2016 01/12/2017 Inactive Lasix 20 mg tablet RxNorm: 2 Tablet(s) PO daily 09/10/2016 09/12/2016 Inactive Lasix 20 mg tablet RxNorm: 1 Tablet(s) PO daily 08/28/2016 08/30/2016 Inactive Lasix 20 mg tablet RxNorm: 1 Tablet(s) PO daily 08/20/2016 08/22/2016 Inactive Detrol LA 4 mg capsu le,extended release RxNorm: 007731 TAKE 1 CAPSULE BY JAVON TH ONCE DAILY 07/27/2016 02/18/2017 Inactive Generic For:DETROL LA 4MG C AP 07/27/2016 9:08:27 AM Coumadin 4 mg tablet RxNorm: 004605 1 Tablet(s) PO 3 x week tue thur and sun 07/27/2016 09/24/2016 In active omeprazole 20 mg cap sean,delayed release RxNorm: 028228 Capsule(s) PO TAKE 1 CAPSULE BY MOUTH ONCE DAILY 07/27/2016 01/22/2017 Inactive venlafaxine ER 75 mg capsule,extended release 24 hr RxNorm: 118587 1 Capsule(s) PO daily 06/29/2016 06/21/2017 Inactive sodium bicarbonate 6 50 mg tablet RxNorm: 548940 TAKE 2 TABLETS BY JAVON TH TWICE DAILY 06/29/2016 12/23/2016 In active 06/27/2016 9:05:39 AM Coumadin 4 mg tablet RxNorm: 424611 1 Tablet(s) PO 3 x week e and sun 06/09/2016 06/08/2016 In active Coumadin 4 mg tablet RxNorm: 421681 1 Tablet(s) PO 3 x week e thur and sun 06/09/2016 07/26/2016 In active Zetia 10 mg tablet RxNorm: 749754 1 Tablet(s) PO daily 06/09/2016 06/08/2016 Inactive gave 1 month of samples Zetia 10 mg tablet RxNorm: 791922 1 Tablet(s) PO daily 06/09/2016 09/24/2016 Inactive gave 1 month of samples Effexor 75 mg tablet RxNorm: 578647 1 Tablet(s) PO daily 06/08/2016 06/28/2016 Inactive spironolactone 25 mg tablet RxNorm: 571447 1 Tablet(s) PO daily 06/08/2016 05/23/2017 Inactive Synthroid 137 mcg ta blet RxNorm: 088702 1 Tablet(s) PO daily 05/07/2016 11/02/2016 Inactive allopurinol 300 mg t ablet RxNorm: 961704 Tablet(s) TAKE 1 TABL ET BY MOUTH ONCE DAILY. 04/28/2016 10/24/2016 Inactive clonazepam 0.5 mg ta blet RxNorm: 908467 1 Tablet(s) PO BID 04/20/2016 09/15/2016 Inactive Flonase Allergy Reli ef 50 mcg/actuation nasal spray,suspension RxNorm: 9595940 1 [place] NASAL BID 04/02/2016 No Stop Date Active Zithromax Z-Thomas 250 mg tablet RxNorm: 607622 Tablet(s) PO 04/02/2016 08/27/2016 Inactive cetirizine 10 mg tablet RxNorm: 2440242 1 Tablet(s) PO daily 04/02/2016 05/01/2016 Inactive Carafate 1 gram tablet RxNorm: 886565 Tablet(s) TAKE 1 TABLET TWICE A DAY FOR 30 DAYS 03/30/2016 10/25/2016 Inactive Generic For:CARAFATE 1GM 02/08/2015 12:3 6:39 PM Plavix 75 mg tablet RxNorm: 727621 1 Tablet(s) PO daily 03/11/2016 09/06/2016 Inactive sodium bicarbonate 6 50 mg tablet RxNorm: 624264 Tablet(s) 2 Tablet(s) PO BID 02/28/2016 06/26/2016 In active omeprazole 20 mg cap sean,delayed release RxNorm: 672206 Capsule(s) PO TAKE 1 CAPSULE BY MOUTH ONCE DAILY 01/31/2016 07/26/2016 Inactive Fish Oil 1,000 mg ca psule RxNorm: 1 Capsule(s) PO BID 01/14/2016 No Stop Date Active Synthroid 137 mcg ta blet RxNorm: 436364 1 Tablet(s) PO daily 01/14/2016 05/06/2016 Inactive Detrol LA 4 mg capsu le,extended release RxNorm: 135845 TAKE 1 CAPSULE BY JAVON TH ONCE DAILY 12/30/2015 07/26/2016 Inactive Generic For:DETROL LA 4MG C AP 12/30/2015 9:11:01 AM potassium chloride 2 0 mEq/15 mL oral liquid RxNorm: 187231 Milliliter(s) 30 Milliliter(s) (40mEq) PO daily 12/02/2015 03/30/2016 Inactive sodium bicarbonate 6 50 mg tablet RxNorm: 325028 Tablet(s) 2 Tablet(s) PO BID 10/31/2015 02/27/2016 In active Lipitor 40 mg tablet RxNorm: 070598 1 Tablet(s) PO daily 10/09/2015 09/24/2016 Inactive sodium bicarbonate 6 50 mg tablet RxNorm: 553196 2 Tablet(s) PO BID 10/01/2015 10/30/2015 Inactive allopurinol 300 mg t ablet RxNorm: 542144 TAKE 1 TABLET BY MOUT H ONCE DAILY. 10/01/2015 04/27/2016 In active Generic For:ZYLOPRIM 300 MG TABLET 09/19 9:21:15 AM clonazepam 0.5 mg ta blet RxNorm: 483425 1 Tablet(s) PO BID 09/30/2015 04/19/2016 Inactive Coumadin 5 mg tablet RxNorm: 301406 1 Tablet(s) PO daily 09/27/2015 05/31/2017 Inactive Generic For:COUMADIN 5MG TAB N O T I C E PRESCRIPTION PREVIOUSLY AUTHORIZED BY DOCTOR:BOBBY ZULETA Synthroid 125 mcg ta blet RxNorm: 152621 1 Tablet(s) PO daily 09/27/2015 09/26/2015 Inactive Synthroid 125 mcg ta blet RxNorm: 519112 1 Tablet(s) PO daily 09/27/2015 01/13/2016 Inactive Carafate 1 gram tablet RxNorm: 512317 Tablet(s) TAKE 1 TABLET TWICE A DAY FOR 30 DAYS 09/02/2015 03/29/2016 Inactive Generic For:CARAFATE 1GM 02/08/2015 12:3 6:39 PM sodium bicarbonate 6 50 mg tablet RxNorm: 682904 2 Tablet(s) PO BID 09/02/2015 09/30/2015 Inactive Prilosec 20 mg capsu le,delayed release RxNorm: 339457 TAKE 1 CAPSULE BY JAVON TH ONCE DAILY 08/02/2015 01/28/2016 Inactive Generic For:PRILOSEC 20MG 08/02/2015 10:03:09 AM N O T I C E PRESCRIPTION PREVIOUSLY AUTHORIZED BY DOCTOR:BOBBY ZULETA Zyrtec 10 mg capsule RxNorm: 5011095 1 Capsule(s) PO daily 07/15/2015 08/13/2015 Inactive Keflex 500 mg capsule RxNorm: 979826 1 Capsule(s) PO TID 07/15/2015 07/21/2015 Inactive cetirizine 10 mg cap sean RxNorm: 2321614 1 Capsule(s) PO daily 07/15/2015 08/13/2015 Inactive hydrocodone 5 mg-hmuberto taminophen 325 mg tablet RxNorm: 782954 1-2 Tablet(s) PO Q6 P RN 06/10/2015 11/16/2016 In active sodium bicarbonate 6 50 mg tablet RxNorm: 244312 2 Tablet(s) PO BID 06/03/2015 08/31/2015 Inactive Detrol LA 4 mg capsu le,extended release RxNorm: 362477 TAKE 1 CAPSULE BY JAVON TH ONCE DAILY 06/03/2015 12/29/2015 Inactive Generic For:DETROL LA 4MG C AP N O T I C E PRESCRIPTION PREVIOUSLY AUTHORIZED BY DOCTOR:BOBBY ZULETA atenolol 50 mg tablet RxNorm: 912975 1 Tablet(s) PO daily TAKE 1 TABLET BY MO UTH DAILY 05/07/2015 08/23/2017 Inactive Generic For:TENORMIN 50MG 05/04/2015 9:07:22 AM spironolactone 25 mg tablet RxNorm: 216717 1 Tablet(s) PO daily 05/06/2015 06/07/2016 Inactive venlafaxine ER 75 mg capsule,extended release 24 hr RxNorm: 885779 1 Capsule(s) PO daily 05/04/2015 06/28/2016 Inactive atenolol 50 mg tablet RxNorm: 214633 TAKE 1 TABLET BY MOUTH DAILY 05/04/2015 05/06/2015 Inactive Generic For:TENORMIN 50MG 05/04/2015 9: 07:22 AM Synthroid 150 mcg ta blet RxNorm: 282415 TAKE 1 TABLET BY MOUT H ONCE DAILY. 04/05/2015 09/26/2015 In active Generic For:SYNTHROID 150MCG TAB 2014 4:45:40 PM N O T I C E PRESCRIPTION PREVIOUSLY AUTHORIZED BY DOCTOR:BOBBY ZULETA Effexor 75 mg tablet RxNorm: 008489 1 Tablet(s) PO daily 04/05/2015 07/03/2015 Inactive Coumadin 5 mg tablet RxNorm: 857234 TAKE 1 AND 1/2 TABLETS BY MOUTH ONCE MYRANDA LY 04/04/2015 09/26/2015 In active Generic For:COUMADIN 5MG TAB N O T I C E PRESCRIPTION PREVIOUSLY AUTHORIZED BY DOCTOR:BOBBY ZULETA clonazepam 0.5 mg ta blet RxNorm: 012392 1 Tablet(s) PO BID 03/13/2015 11/05/2015 Inactive sodium bicarbonate 6 50 mg tablet RxNorm: 144308 2 Tablet(s) PO BID 03/08/2015 06/02/2015 Inactive allopurinol 300 mg t ablet RxNorm: 831700 TAKE 1 TABLET BY MOUT H ONCE DAILY. 03/05/2015 09/30/2015 In active N O T I C E PRESCRIPTION PREVIOUSLY A UTHORIZED BY DOCTOR:BOBBY ZULETA Plavix 75 mg tablet RxNorm: 790737 1 Tablet(s) PO daily 02/12/2015 09/09/2015 Inactive clonazepam 0.5 mg ta blet RxNorm: 745090 1 Tablet(s) PO BID 02/11/2015 03/11/2015 Inactive Carafate 1 gram tablet RxNorm: 413893 TAKE 1 TABLET TWICE A DAY FOR 30 DAYS 02/08/2015 02/07/2015 In active Generic For:CARAFATE 1GM 02/08/2015 12:3 6:39 PM Carafate 1 gram tablet RxNorm: 647140 Tablet(s) TAKE 1 TABLET TWICE A DAY FOR 30 DAYS 02/08/2015 09/01/2015 Inactive Generic For:CARAFATE 1GM 02/08/2015 12:3 6:39 PM potassium chloride 2 0 mEq/15 mL oral liquid RxNorm: 815814 30 Milliliter(s) (40m Eq) PO daily 02/05/2015 12/01/2015 Inactive atenolol 50 mg tablet RxNorm: 306065 1 Tablet(s) PO daily 02/04/2015 05/03/2015 Inactive [SAVINGS FOR NON-COVERED DRUGS -- BIN:00 3585, PCN: ASPROD1, Group: XXXXX, ID# XXXXXXX, Questions: . THIS IS NOT INSURANCE.] potassium chloride 2 0 mEq/15 mL oral liquid RxNorm: 078883 30 Milliliter(s) (40m Eq) PO daily 01/08/2015 02/04/2015 Inactive potassium chloride 2 0 mEq/15 mL oral liquid RxNorm: 605417 30 Milliliter(s) (40m Eq) PO daily 12/07/2014 01/07/2015 Inactive atenolol 50 mg tablet RxNorm: 055951 1 Tablet(s) PO daily 11/09/2014 11/08/2014 Inactive atenolol 50 mg tablet RxNorm: 512652 1 Tablet(s) PO daily 11/09/2014 02/03/2015 Inactive [SAVINGS FOR NON-COVERED DRUGS -- BIN:00 3585, PCN: ASPROD1, Group: XXXXX, ID# XXXXXXX, Questions: . THIS IS NOT INSURANCE.] Voltaren 1 % topical gel RxNorm: 687902 TOP No St art Date Active verapamil ER (HS) 24 0 mg tablet,extended release 24 hr RxNorm: 359493 1 Tablet(s) PO daily No Start Date Active aspirin 81 mg tablet RxNorm: 322984 1 Tablet(s) PO daily No Start Date Active Zofran 4 mg tablet RxNorm: 112977 1 Tablet(s) PO PRN No Start Date Active B12 1000 mcg RxNorm: 1 Tablet(s) PO daily No Start Date Active magnesium oxide 400 mg capsule RxNorm: 022545 2 Capsule(s) PO BID No Start Date Active Synthroid 150 mcg ta blet RxNorm: 467701 1 Tablet(s) PO daily No Start Date 04/04/2015 Inactive Coumadin 5 mg tablet RxNorm: 668110 1 Tablet(s) PO daily No Start Date 04/03/2015 Inactive cranberry 1,000 mg c apsule RxNorm: 139618 1 Capsule(s) PO daily No Start Date 04/13/2018 Inactive allopurinol 300 mg t ablet RxNorm: 487409 1 Tablet(s) PO daily No Start Date 03/04/2015 Inactive Prilosec 20 mg capsu le,delayed release RxNorm: 235439 1 Capsule(s) PO PRN No Start Date 08/01/2015 Inactive potassium chloride 2 0 mEq/15 mL oral liquid RxNorm: 182175 30 Milliliter(s) (40m Eq) PO daily No Start Date 12/06/2014 Inactive atenolol 50 mg tablet RxNorm: 907174 1 Tablet(s) PO daily No Start Date 08/29/2017 Inactive Lipitor 40 mg tablet RxNorm: 376256 1 Tablet(s) PO daily No Start Date 09/19/2017 Inactive Effexor 75 mg tablet RxNorm: 059402 1 Tablet(s) PO daily No Start Date 04/04/2015 Inactive Carafate 1 gram tablet RxNorm: 090955 1 Tablet(s) PO BID No Start Date 02/07/2015 Inactive clonazepam 0.5 mg ta blet RxNorm: 096380 1 Tablet(s) PO BID No Start Date 02/10/2015 Inactive Plavix 75 mg tablet RxNorm: 508637 1 Tablet(s) PO daily No Start Date 02/11/2015 Inactive sodium bicarbonate 6 50 mg tablet RxNorm: 900577 2 Tablet(s) PO BID No Start Date 09/01/2015 Inactive Lovenox 30 mg/0.3 mL subcutaneous syringe RxNorm: 404727 0.3 Milliliter(s) SQ Q12H No Start Date 03/15/2017 Inactive Fish Oil 1,000 mg ca psule RxNorm: 1 Capsule(s) PO daily No Start Date 01/13/2016 Inactive Detrol LA 4 mg capsu le,extended release RxNorm: 764535 1 Capsule(s) PO daily No Start Date [...] fatigue ICD-10: R53.83 ICD-9: 780.79 08/20/2016 Other nursing home (current) drug therapy ICD-10: Z79.899 ICD-9: [...] Code Item Item Code Result Date Pt [id number] PT 16.8 seconds 05/10/2018 Pt [id number] INR 1.4 05/10/2018 Pt [id number] Low Intensity - 1.5-2.0 05/10/2018 Pt Aat3207 Mod intensity - 2.0-3.0 05/10/2018 Pt Piv6695 Hi intensity - 3.0-4.0 05/10/2018 Pt Nmb7784 PT 16.7 seconds 05/04/2018 Pt Lia8639 INR 1.4 05/04/2018 Pt Gae4411 Low Intensity - 1.5-2.0 05/04/2018 Pt [id number] Mod intensity - 2.0-3.0 05/04/2018 Pt Bha5534 Hi intensity - 3.0-4.0 05/04/2018 Free T4 Bxf942 FREE T4 1.09 ng/dL 04/14/2018 Tsh Ord6 TSH (3rd IS) 2.36 uIU/mL 04/14/2018 Pt Wjv1124 PT 20.3 seconds 04/14/2018 Pt Tpf1441 INR 1.8 04/14/2018 Pt Mjk6081 Low Intensity - 1.5-2.0 04/14/2018 Pt Bom3646 Mod intensity - 2.0-3.0 04/14/2018 Pt Ett7563 Hi intensity - 3.0-4.0 04/14/2018 Lipid Ord30 CHOL 149 mg/dL 04/14/2018 Lipid Ord30 HDL 49.0 mg/dl 04/14/2018 Lipid Ord30 TRIG 161 mg/dL 04/14/2018 Lipid Ord30 LDL 68 mg/dL 04/14/2018 Lipid Ord30 C/HDL 3.0 Ratio 04/14/2018 %Hba1C Dqu883 % HbA1c 71072-9 5.9 % 04/14/2018 %Hba1C Zui526 Gluc Ave 123 mg/dL 04/14/2018 Comp Metabolic Voh520 NA 140 mEq/L 04/14/2018 Comp Metabolic Amw248 K 4.1 mEq/L 04/14/2018 Comp Metabolic Tww741 CL 105 mEq/L 04/14/2018 Comp Metabolic Iyg318 CO2 28.0 mEq/L 04/14/2018 Comp Metabolic Cuw387 AN ION GAP 11 04/14/2018 Comp Metabolic Odk991 GL UCOSE 112 mg/dL 04/14/2018 Comp Metabolic Uao977 Cr eat 1.0 mg/dL 04/14/2018 Comp Metabolic Hwq810 eG FR 58 ml/min/1.73m2 04/14 Comp Metabolic Cri180 BUN 20 mg/dL 04/14/2018 Comp Metabolic Ahg140 B/ C Ratio 20.2 Ratio 04/14/2018 Comp Metabolic Aph803 CA LCIUM 10.0 mg/dL 04/14/2018 Comp Metabolic Nqm154 AL K PHOS 51 U/L 04/14/2018 Comp Metabolic Zha665 T(SGOT) 24 U/L 04/14/2018 Comp Metabolic Gaa397 AL T(SGPT) 21 U/L 04/14/2018 Comp Metabolic Gdn958 BI LI T 0.8 mg/dL 04/14/2018 Comp Metabolic Szg749 AL BUMIN 4.2 g/dL 04/14/2018 Comp Metabolic Hpf241 TP RO 7.1 g/dL 04/14/2018 Comp Metabolic Lob737 GL OB 2.9 g/dL 04/14/2018 Comp Metabolic Ufh442 A/ G Ratio 1.5 Ratio 04/14/2018 Comp Metabolic Dat542 Os mo 283 mOsmo 04/14/2018 Cbc With [...] 30.7 pg 04/14/2018 Cbc With Differential Ord2 [place]% 10.6 % 04/14/2018 Cbc With Differential Ord2 [...] 1.18 K/ul 04/14/2018 Cbc With Differential Ord2 [place] ABS# 0.5 K/ul 04/14/2018 Cbc With Differential Ord2 Eos ABS# 0.2 K/ul 04/14/2018 Cbc With Differential Ord2 Baso ABS# 0.1 K/ul 04/14/2018 Pt Zgi6320 PT 29.3 seconds 02/11/2018 Pt Emb4931 INR 2.8 02/11/2018 Pt Xso2815 Low Intensity - 1.5-2.0 02/11/2018 Pt Dig2397 Mod intensity - 2.0-3.0 02/11/2018 Pt Hpl8917 Hi intensity - 3.0-4.0 02/11/2018 Comp Metabolic Ycr632 NA 141 mEq/L 01/05/2018 Comp Metabolic Kzq216 K 3.7 mEq/L 01/05/2018 Comp Metabolic Umn422 CL 102 mEq/L 01/05/2018 Comp Metabolic Gxd628 CO2 29.0 mEq/L 01/05/2018 Comp Metabolic Ear275 AN ION GAP 14 01/05/2018 Comp Metabolic Azs096 GL UCOSE 136 mg/dL 01/05/2018 Comp Metabolic Gyl282 Cr eat 1.0 mg/dL 01/05/2018 Comp Metabolic Pes080 eG FR 61 ml/min/1.73m2 01/05 Comp Metabolic Azs789 BUN 22 mg/dL 01/05/2018 Comp Metabolic Knn067 B/ C Ratio 22.9 Ratio 01/05/2018 Comp Metabolic Aos942 CA LCIUM 9.7 mg/dL 01/05/2018 Comp Metabolic Tzr066 AL K PHOS 57 U/L 01/05/2018 Comp Metabolic Jhn266 T(SGOT) 21 U/L 01/05/2018 Comp Metabolic Uwb943 AL T(SGPT) 19 U/L 01/05/2018 Comp Metabolic Fba590 BI LI T 0.9 mg/dL 01/05/2018 Comp Metabolic Ebn098 AL BUMIN 4.1 g/dL 01/05/2018 Comp Metabolic Pga416 TP RO 7.1 g/dL 01/05/2018 Comp Metabolic Wae533 GL OB 3.0 g/dL 01/05/2018 Comp Metabolic Wfx560 A/ G Ratio 1.4 Ratio 01/05/2018 Comp Metabolic Mbg109 Os mo 287 mOsmo 01/05/2018 Free T4 Dhk055 FREE T4 1.05 ng/dL 01/05/2018 %Hba1C Xnw767 % HbA1c 46103-4 6.0 % 01/05/2018 %Hba1C Cva627 Gluc Ave 126 mg/dL 01/05/2018 Cbc With [...] 27.3 % 01/05/2018 Cbc With Differential Ord2 [place]% 10.5 % 01/05/2018 Cbc With Differential Ord2 [...] 1.27 K/ul 01/05/2018 Cbc With Differential Ord2 [place] ABS# 0.5 K/ul 01/05/2018 Cbc With Differential Ord2 Eos ABS# 0.2 K/ul 01/05/2018 Cbc With Differential Ord2 Baso ABS# 0.1 K/ul 01/05/2018 Pt Cqd2421 PT 20.7 seconds 01/05/2018 Pt Zbz5474 INR 1.8 01/05/2018 Pt Ves8584 Low Intensity - 1.5-2.0 01/05/2018 Pt Aov1411 Mod intensity - 2.0-3.0 01/05/2018 Pt Lev7119 Hi intensity - 3.0-4.0 01/05/2018 Tsh Ord6 TSH (3rd IS) 2.34 uIU/mL 01/05/2018 Lipid Ord30 CHOL 156 mg/dL 01/05/2018 Lipid Ord30 HDL 48.0 mg/dl 01/05/2018 Lipid Ord30 TRIG 207 mg/dL 01/05/2018 Lipid Ord30 LDL 67 mg/dL 01/05/2018 Lipid Ord30 C/HDL 3.3 Ratio 01/05/2018 Pt Nhs8888 PT 28.3 seconds 11/26/2017 Pt Yfp8711 INR 2.6 11/26/2017 Pt Nao2231 Low Intensity - 1.5-2.0 11/26/2017 Pt Zkw6726 Mod intensity - 2.0-3.0 11/26/2017 Pt Qmn7046 Hi intensity - 3.0-4.0 11/26/2017 Pt Ixa6399 PT 36.5 seconds 11/19/2017 Pt Ukq2640 INR 3.6 11/19/2017 Pt Tvr5117 Low Intensity - 1.5-2.0 11/19/2017 Pt Wck9095 Mod intensity - 2.0-3.0 11/19/2017 Pt Umz3488 Hi intensity - 3.0-4.0 11/19/2017 Pt Gka1950 PT 22.9 seconds 10/15/2017 Pt Jtp5149 INR 2.0 10/15/2017 Pt Wkz6590 Low Intensity - 1.5-2.0 10/15/2017 Pt Wyj0538 Mod intensity - 2.0-3.0 10/15/2017 Pt Fam3742 Hi intensity - 3.0-4.0 10/15/2017 Pt Pfu2433 PT 25.9 seconds 10/01/2017 Pt Nhu0903 INR 2.4 10/01/2017 Pt Iqy2776 Low Intensity - 1.5-2.0 10/01/2017 Pt Isy4007 Mod intensity - 2.0-3.0 10/01/2017 Pt Vgp8713 Hi intensity - 3.0-4.0 10/01/2017 Pt Hlq3087 PT 20.6 seconds 09/24/2017 Pt Zkq1764 INR 1.8 09/24/2017 Pt Uqs6028 Low Intensity - 1.5-2.0 09/24/2017 Pt Aiv7769 Mod intensity - 2.0-3.0 09/24/2017 Pt Ucr5952 Hi intensity - 3.0-4.0 09/24/2017 Pt Bcp9338 PT 21.0 seconds 09/15/2017 Pt Rbd8146 INR 1.8 09/15/2017 Pt Oae5657 Low Intensity - 1.5-2.0 09/15/2017 Pt Eun3491 Mod intensity - 2.0-3.0 09/15/2017 Pt Gxs3531 Hi intensity - 3.0-4.0 09/15/2017 Pt Pck5198 PT 19.0 seconds 09/03/2017 Pt Jrd8080 INR 1.6 09/03/2017 Pt Gom0214 Low Intensity - 1.5-2.0 09/03/2017 Pt Cjn4659 Mod intensity - 2.0-3.0 09/03/2017 Pt Xvt9854 Hi intensity - 3.0-4.0 09/03/2017 Pt Epa9213 PT 17.6 seconds 08/23/2017 Pt Oxn9060 INR 1.5 08/23/2017 Pt Tff8265 Low Intensity - 1.5-2.0 08/23/2017 Pt Fxf0479 Mod intensity - 2.0-3.0 08/23/2017 Pt Tkr3376 Hi intensity - 3.0-4.0 08/23/2017 Pt Gdt4579 PT 12.7 seconds 08/20/2017 Pt Mgc9495 INR 1.0 08/20/2017 Pt Grr0299 Low Intensity - 1.5-2.0 08/20/2017 Pt Cah0648 Mod intensity - 2.0-3.0 08/20/2017 Pt Dtb2993 Hi intensity - 3.0-4.0 08/20/2017 Pt Qum5559 PT 12.9 seconds 08/17/2017 Pt Uva1861 INR 1.0 08/17/2017 Pt Lar8425 Low Intensity - 1.5-2.0 08/17/2017 Pt Nve5421 Mod intensity - 2.0-3.0 08/17/2017 Pt Hxm0968 Hi intensity - 3.0-4.0 08/17/2017 Pt Vjb1245 PT 18.5 seconds 08/10/2017 Pt Cvs8212 INR 1.6 08/10/2017 Pt Tvi3438 Low Intensity - 1.5-2.0 08/10/2017 Pt Kvh2175 Mod intensity - 2.0-3.0 08/10/2017 Pt Nrn5645 Hi intensity - 3.0-4.0 08/10/2017 Tsh Ord6 [...] 29.3 pg 05/27/2017 Cbc With Differential Ord2 [place]% 8.1 % 05/27/2017 Cbc With Differential Ord2 [...] 1.11 K/ul 05/27/2017 Cbc With Differential Ord2 [place] ABS# 0.6 K/ul 05/27/2017 Cbc With Differential Ord2 Eos ABS# 0.2 K/ul 05/27/2017 Cbc With Differential Ord2 Baso ABS# 0.1 K/ul 05/27/2017 Pt Ckb6416 PT 28.2 seconds 05/27/2017 Pt Mzh3101 INR 2.6 05/27/2017 Pt Gvj0291 Low Intensity - 1.5-2.0 05/27/2017 Pt Omo7741 Mod intensity - 2.0-3.0 05/27/2017 Pt Jct8410 Hi intensity - 3.0-4.0 05/27/2017 Lipid Ord30 CHOL 167 mg/dL 05/27/2017 Lipid Ord30 HDL 49.0 mg/dl 05/27/2017 Lipid Ord30 TRIG 347 mg/dL 05/27/2017 Lipid Ord30 LDL 49 mg/dL 05/27/2017 Lipid Ord30 C/HDL 3.4 Ratio 05/27/2017 Magnesium Ord90 Mag 1.4 mg/dL 05/27/2017 %Hba1C Wmw897 % HbA1c 21321-3 5.9 % 05/27/2017 %Hba1C Eqv927 Gluc Ave 123 mg/dL 05/27/2017 Comp Metabolic Pvx239 NA 138 mEq/L 05/27/2017 Comp Metabolic Qix227 K 4.1 mEq/L 05/27/2017 Comp Metabolic Dkk762 CL 101 mEq/L 05/27/2017 Comp Metabolic Tbn902 CO2 31.0 mEq/L 05/27/2017 Comp Metabolic Pmq322 AN ION GAP 10 05/27/2017 Comp Metabolic Thd883 GL UCOSE 117 mg/dL 05/27/2017 Comp Metabolic Rwk901 Cr eat 0.9 mg/dL 05/27/2017 Comp Metabolic Twx462 eG FR 62 ml/min/1.73m2 05/27 Comp Metabolic Jls194 BUN 25 mg/dL 05/27/2017 Comp Metabolic Ozt370 B/ C Ratio 26.6 Ratio 05/27/2017 Comp Metabolic Tlo401 CA LCIUM 9.5 mg/dL 05/27/2017 Comp Metabolic Liw856 AL K PHOS 73 U/L 05/27/2017 Comp Metabolic Yud157 T(SGOT) 18 U/L 05/27/2017 Comp Metabolic Gkc923 AL T(SGPT) 12 U/L 05/27/2017 Comp Metabolic Cip422 BI LI T 0.5 mg/dL 05/27/2017 Comp Metabolic Ktx730 AL BUMIN 4.1 g/dL 05/27/2017 Comp Metabolic Ihb658 TP RO 7.1 g/dL 05/27/2017 Comp Metabolic Fkn185 GL OB 3.0 g/dL 05/27/2017 Comp Metabolic Dlg658 A/ G Ratio 1.3 Ratio 05/27/2017 Comp Metabolic Eej090 Os mo 281 mOsmo 05/27/2017 Free T4 Xnc793 FREE T4 0.91 ng/dL 05/27/2017 Pt Ffn9432 PT 29.2 seconds 04/16/2017 Pt Jta3370 INR 2.7 04/16/2017 Pt Cgh8922 Low Intensity - 1.5-2.0 04/16/2017 Pt Mqo3119 Mod intensity - 2.0-3.0 04/16/2017 Pt Zdt4774 Hi intensity - 3.0-4.0 04/16/2017 Pt Erb3458 PT 30.7 seconds 03/31/2017 Pt Kej9859 INR 2.9 03/31/2017 Pt Bjt2065 Low Intensity - 1.5-2.0 03/31/2017 Pt Utz0995 Mod intensity - 2.0-3.0 03/31/2017 Pt Zww5104 Hi intensity - 3.0-4.0 03/31/2017 Pt Ojy8042 PT 21.3 seconds 03/26/2017 Pt Vst9521 INR 1.9 03/26/2017 Pt Mnp1948 Low Intensity - 1.5-2.0 03/26/2017 Pt Wum1714 Mod intensity - 2.0-3.0 03/26/2017 Pt Lia2855 Hi intensity - 3.0-4.0 03/26/2017 Pt Pee6524 PT 19.8 seconds 03/22/2017 Pt Jvk3336 INR 1.7 03/22/2017 Pt Hrv4055 Low Intensity - 1.5-2.0 03/22/2017 Pt Jwr2175 Mod intensity - 2.0-3.0 03/22/2017 Pt Ygk2840 Hi intensity - 3.0-4.0 03/22/2017 Pt Buv3334 PT 15.6 seconds 03/19/2017 Pt Whu2536 INR 1.3 03/19/2017 Pt Iuf2661 Low Intensity - 1.5-2.0 03/19/2017 Pt Jqr2935 Mod intensity - 2.0-3.0 03/19/2017 Pt Rtf9702 Hi intensity - 3.0-4.0 03/19/2017 Pt Dlb3079 PT 13.7 seconds 03/15/2017 Pt Hzi7513 INR 1.1 03/15/2017 Pt Tcl4719 Low Intensity - 1.5-2.0 03/15/2017 Pt Yas7998 Mod intensity - 2.0-3.0 03/15/2017 Pt Hkg2646 Hi intensity - 3.0-4.0 03/15/2017 Pt Ago5413 PT 25.8 seconds 01/28/2017 Pt Zjq8302 INR 2.4 01/28/2017 Pt Fjc6159 Low Intensity - 1.5-2.0 01/28/2017 Pt Fmu8654 Mod intensity - 2.0-3.0 01/28/2017 Pt Tjx0426 Hi intensity - 3.0-4.0 01/28/2017 %Hba1C Hqx588 % HbA1c 38238-6 6.4 % 10/23/2016 %Hba1C Bxk388 Gluc Ave 137 mg/dL 10/23/2016 Comp Metabolic Swr526 NA 138 mEq/L 10/23/2016 Comp Metabolic Wlk619 K 3.4 mEq/L 10/23/2016 Comp Metabolic Rai166 CL 100 mEq/L 10/23/2016 Comp Metabolic Ovl564 CO2 30.0 mEq/L 10/23/2016 Comp Metabolic Ize038 AN ION GAP 11 10/23/2016 Comp Metabolic Wlc861 GL UCOSE 139 mg/dL 10/23/2016 Comp Metabolic Pih091 Cr eat 0.9 mg/dL 10/23/2016 Comp Metabolic Yua849 eG FR 62 ml/min/1.73m2 10/23 Comp Metabolic Wvz607 BUN 22 mg/dL 10/23/2016 Comp Metabolic Huw809 B/ C Ratio 23.4 Ratio 10/23/2016 Comp Metabolic Kzr505 CA LCIUM 8.7 mg/dL 10/23/2016 Comp Metabolic Kpp642 AL K PHOS 66 U/L 10/23/2016 Comp Metabolic Hle359 T(SGOT) 20 U/L 10/23/2016 Comp Metabolic Trd718 AL T(SGPT) 10 U/L 10/23/2016 Comp Metabolic Igb875 BI LI T 0.5 mg/dL 10/23/2016 Comp Metabolic Qqv709 AL BUMIN 3.5 g/dL 10/23/2016 Comp Metabolic Lxt257 TP RO 6.3 g/dL 10/23/2016 Comp Metabolic Bhu593 GL OB 2.8 g/dL 10/23/2016 Comp Metabolic Egk070 A/ G Ratio 1.3 Ratio 10/23/2016 Comp Metabolic Vhp643 Os mo 281 mOsmo 10/23/2016 Pt Jzw7467 PT 26.8 seconds 10/23/2016 Pt Bws2672 INR 2.7 10/23/2016 Pt Icn8642 Low Intensity - 1.5-2.0 10/23/2016 Pt Xsf7402 Mod intensity - 2.0-3.0 10/23/2016 Pt Upr5478 Hi intensity - 3.0-4.0 10/23/2016 Pt Ohv0869 PT 28.3 seconds 09/25/2016 Pt Ljb3149 INR 2.8 09/25/2016 Pt Haz7843 Low Intensity - 1.5-2.0 09/25/2016 Pt Wqb2913 Mod intensity - 2.0-3.0 09/25/2016 Pt Gwc3942 Hi intensity - 3.0-4.0 09/25/2016 Metabolic Ord15 [...] Metabolic Ord15 CALCIUM 8.8 mg/dL 09/25/2016 Pt Zjo8230 PT 30.6 seconds 09/11/2016 Pt Omf6755 INR 3.2 09/11/2016 Pt Ypm4443 Low Intensity - 1.5-2.0 09/11/2016 Pt Auh1638 Mod intensity - 2.0-3.0 09/11/2016 Pt Hnt7477 Hi intensity - 3.0-4.0 09/11/2016 Comp Metabolic Dex141 NA 138 mEq/L 09/11/2016 Comp Metabolic Ysb477 K 4.4 mEq/L 09/11/2016 Comp Metabolic Pkb602 CL 103 mEq/L 09/11/2016 Comp Metabolic Hct370 CO2 31.0 mEq/L 09/11/2016 Comp Metabolic Iuw943 AN ION GAP 8 09/11/2016 Comp Metabolic Qfk528 GL UCOSE 146 mg/dL 09/11/2016 Comp Metabolic Ovi568 Cr eat 1.0 mg/dL 09/11/2016 Comp Metabolic Elh680 eG FR 60 ml/min/1.73m2 09/11 Comp Metabolic Xdo100 BUN 16 mg/dL 09/11/2016 Comp Metabolic Ffb349 B/ C Ratio 16.5 Ratio 09/11/2016 Comp Metabolic Oca842 CA LCIUM 8.7 mg/dL 09/11/2016 Comp Metabolic Eyj487 AL K PHOS 52 U/L 09/11/2016 Comp Metabolic Xqf934 T(SGOT) 19 U/L 09/11/2016 Comp Metabolic Mew132 AL T(SGPT) 11 U/L 09/11/2016 Comp Metabolic Tos546 BI LI T 0.7 mg/dL 09/11/2016 Comp Metabolic Ryt820 AL BUMIN 3.3 g/dL 09/11/2016 Comp Metabolic Yts858 TP RO 5.8 g/dL 09/11/2016 Comp Metabolic Bsk250 GL OB 2.5 g/dL 09/11/2016 Comp Metabolic Kiq105 A/ G Ratio 1.3 Ratio 09/11/2016 Comp Metabolic Rsl874 Os mo 280 mOsmo 09/11/2016 C-Reactive Protein Qnt Crqnt CRP 0.1 mg/dl 08/21/2016 Comp Metabolic Anj792 NA 139 mEq/L 08/21/2016 Comp Metabolic Nne749 K 4.1 mEq/L 08/21/2016 Comp Metabolic Wnw890 CL 102 mEq/L 08/21/2016 Comp Metabolic Kll748 CO2 30.0 mEq/L 08/21/2016 Comp Metabolic Iar612 AN ION GAP 11 08/21/2016 Comp Metabolic Jjh527 GL UCOSE 148 mg/dL 08/21/2016 Comp Metabolic Muu926 Cr eat 1.0 mg/dL 08/21/2016 Comp Metabolic Zgp114 eG FR 55 ml/min/1.73m2 08/21 Comp Metabolic Sfc683 BUN 21 mg/dL 08/21/2016 Comp Metabolic Gjq307 B/ C Ratio 20.2 Ratio 08/21/2016 Comp Metabolic Cih162 CA LCIUM 9.4 mg/dL 08/21/2016 Comp Metabolic Igz369 AL K PHOS 63 U/L 08/21/2016 Comp Metabolic Bjv201 T(SGOT) 23 U/L 08/21/2016 Comp Metabolic Iqf175 AL T(SGPT) 16 U/L 08/21/2016 Comp Metabolic Wek184 BI LI T 0.6 mg/dL 08/21/2016 Comp Metabolic Irt055 AL BUMIN 3.9 g/dL 08/21/2016 Comp Metabolic Wts557 TP RO 6.8 g/dL 08/21/2016 Comp Metabolic Vwl582 GL OB 2.9 g/dL 08/21/2016 Comp Metabolic Oub134 A/ G Ratio 1.4 Ratio 08/21/2016 Comp Metabolic Gde765 Os mo 283 mOsmo 08/21/2016 Sed Rate Ord21 ESR 16 mm/hr 08/21/2016 Pt Swy5845 PT 27.2 seconds 08/21/2016 Pt Gzm3499 INR 2.7 08/21/2016 Pt Dyx3253 Low Intensity - 1.5-2.0 08/21/2016 Pt Psy7820 Mod intensity - 2.0-3.0 08/21/2016 Pt Mxz6773 Hi intensity - 3.0-4.0 08/21/2016 Magnesium Ord90 Mag 1.9 mg/dL 08/21/2016 Pt Bkh4340 PT 25.9 seconds 06/17/2016 Pt Euy9091 INR 2.5 06/17/2016 Pt Cjo5604 Low Intensity - 1.5-2.0 06/17/2016 Pt Ncv8040 Mod intensity - 2.0-3.0 06/17/2016 Pt Swv2994 Hi intensity - 3.0-4.0 06/17/2016 Tsh Ord6 hTSH II 2.13 uIU/mL 06/08/2016 Free T4 Ddm750 FREE T4 0.79 ng/dL 06/08/2016 Cbc With [...] 80.8 fl 06/08/2016 Cbc With Differential Ord2 [place]% 12.0 % 06/08/2016 Cbc With Differential Ord2 [...] 1.40 K/ul 06/08/2016 Cbc With Differential Ord2 [place] ABS# 0.7 K/ul 06/08/2016 Cbc With Differential Ord2 Eos ABS# 0.3 K/ul 06/08/2016 Cbc With Differential Ord2 Baso ABS# 0.1 K/ul 06/08/2016 %Hba1C Wuc134 % HbA1c 00659-3 6.2 % 06/08/2016 %Hba1C Pzg186 Gluc Ave 131 mg/dL 06/08/2016 Comp Metabolic Tdq301 NA 138 mEq/L 06/08/2016 Comp Metabolic Qyv645 K 3.9 mEq/L 06/08/2016 Comp Metabolic Kqk201 CL 105 mEq/L 06/08/2016 Comp Metabolic Dsa808 CO2 27.0 mEq/L 06/08/2016 Comp Metabolic Avx492 AN ION GAP 10 06/08/2016 Comp Metabolic Kdq850 GL UCOSE 127 mg/dL 06/08/2016 Comp Metabolic Fsg017 Cr eat 1.0 mg/dL 06/08/2016 Comp Metabolic Dxg736 eG FR 59 ml/min/1.73m2 06/08 Comp Metabolic Dmw222 BUN 19 mg/dL 06/08/2016 Comp Metabolic Boh897 B/ C Ratio 19.4 Ratio 06/08/2016 Comp Metabolic Ahw636 CA LCIUM 9.2 mg/dL 06/08/2016 Comp Metabolic Cfd236 AL K PHOS 77 U/L 06/08/2016 Comp Metabolic Hwi082 T(SGOT) 19 U/L 06/08/2016 Comp Metabolic Hxj476 AL T(SGPT) 13 U/L 06/08/2016 Comp Metabolic Efi857 BI LI T 0.5 mg/dL 06/08/2016 Comp Metabolic Dwq103 AL BUMIN 3.8 g/dL 06/08/2016 Comp Metabolic Bme281 TP RO 6.6 g/dL 06/08/2016 Comp Metabolic Gbg948 GL OB 2.8 g/dL 06/08/2016 Comp Metabolic Ptr699 A/ G Ratio 1.4 Ratio 06/08/2016 Comp Metabolic Ovt295 Os mo 280 mOsmo 06/08/2016 Pt Yzh7481 PT 36.1 seconds 06/08/2016 Pt Alb9399 INR 3.9 06/08/2016 Pt Hsx8993 Low Intensity - 1.5-2.0 06/08/2016 Pt Iqz8268 Mod intensity - 2.0-3.0 06/08/2016 Pt Bgi9722 Hi intensity - 3.0-4.0 06/08/2016 Lipid Ord30 CHOL 149 mg/dL 06/08/2016 Lipid Ord30 HDL 46.0 mg/dl 06/08/2016 Lipid Ord30 TRIG 279 mg/dL 06/08/2016 Lipid Ord30 LDL 47 mg/dL 06/08/2016 Lipid Ord30 C/HDL 3.2 Ratio 06/08/2016 Pt Sxe4190 PT 30.9 seconds 02/12/2016 Pt Gws3487 INR 3.2 02/12/2016 Pt Thw2705 Low Intensity - 1.5-2.0 02/12/2016 Pt Sme4875 Mod intensity - 2.0-3.0 02/12/2016 Pt Uam0503 Hi intensity - 3.0-4.0 02/12/2016 Free T4 Lzx322 FREE T4 1.24 ng/dL 09/27/2015 %Hba1C Hjo077 % HbA1c 52930-9 6.4 % 09/27/2015 %Hba1C Qsn521 Gluc Ave 137 mg/dL 09/27/2015 Tsh Ord6 hTSH II 0.37 uIU/mL 09/27/2015 Pt Bdl4069 PT 26.2 seconds 09/27/2015 Pt Uyk8863 INR 2.5 09/27/2015 Pt Mwz5743 Low Intensity - 1.5-2.0 09/27/2015 Pt Wss0431 Mod intensity - 2.0-3.0 09/27/2015 Pt Dac1762 Hi intensity - 3.0-4.0 09/27/2015 Pt Bfh3252 PT 27.6 seconds 2015 Pt Myp3693 INR 2.7 2015 Pt Guw0721 Low Intensity - 1.5-2.0 2015 Pt Yai3672 Mod intensity - 2.0-3.0 2015 Pt Ldk5242 Hi intensity - 3.0-4.0 2015 %Hba1C Pdq701 % HbA1c 67993-6 6.1 % 06/11/2015 %Hba1C Nay977 Gluc Ave 128 mg/dL 06/11/2015 Cbc With [...] Ord2 RDW 15.8 % 06/10/2015 Comp Metabolic Fed086 NA 139 mEq/L 06/10/2015 Comp Metabolic Dwr202 K 4.1 mEq/L 06/10/2015 Comp Metabolic Vqv202 CL 105 mEq/L 06/10/2015 Comp Metabolic Tpe979 CO2 27.0 mEq/L 06/10/2015 Comp Metabolic Eji726 AN ION GAP 11 06/10/2015 Comp Metabolic Rik015 GL UCOSE 127 mg/dL 06/10/2015 Comp Metabolic Opz769 Cr eat 1.0 mg/dL 06/10/2015 Comp Metabolic Rfa430 eG FR 59 ml/min/1.73m2 06/10 Comp Metabolic Vnz575 BUN 21 mg/dL 06/10/2015 Comp Metabolic Hpc826 B/ C Ratio 21.2 Ratio 06/10/2015 Comp Metabolic Kab102 CA LCIUM 9.2 mg/dL 06/10/2015 Comp Metabolic Hdh344 AL K PHOS 87 U/L 06/10/2015 Comp Metabolic Kyf264 T(SGOT) 20 U/L 06/10/2015 Comp Metabolic Hsb883 AL T(SGPT) 17 U/L 06/10/2015 Comp Metabolic Pgd352 BI LI T 0.4 mg/dL 06/10/2015 Comp Metabolic Nyo110 AL BUMIN 4.1 g/dL 06/10/2015 Comp Metabolic Fbu451 TP RO 7.2 g/dL 06/10/2015 Comp Metabolic Upc715 GL OB 3.1 g/dL 06/10/2015 Comp Metabolic Ztl933 A/ G Ratio 1.3 Ratio 06/10/2015 Comp Metabolic Fdi148 Os mo 282 mOsmo 06/10/2015 Tsh Ord6 hTSH II 0.86 uIU/mL 06/10/2015 Lipid Ord30 CHOL 161 mg/dL 06/10/2015 Lipid Ord30 HDL 49.0 mg/dl 06/10/2015 Lipid Ord30 TRIG 208 mg/dL 06/10/2015 Lipid Ord30 LDL 70 mg/dL 06/10/2015 Lipid Ord30 C/HDL 3.3 Ratio 06/10/2015 Pt Yog3187 PT 25.0 seconds 04/09/2015 Pt Ufq1132 INR 2.4 04/09/2015 Pt Shi9203 Low Intensity - 1.5-2.0 04/09/2015 Pt Elt8670 Mod intensity - 2.0-3.0 04/09/2015 Pt Yec9162 Hi intensity - 3.0-4.0 04/09/2015 Free T4 Gsw153 FREE T4 1.05 ng/dL 01/22/2015 Pt Noc0846 PT 27.2 seconds 01/22/2015 Pt Kvs5871 INR 2.6 01/22/2015 Pt Htc8013 Low Intensity - 1.5-2.0 01/22/2015 Pt Qae1453 Mod intensity - 2.0-3.0 01/22/2015 Pt Tuo2265 Hi intensity - 3.0-4.0 01/22/2015 Cbc With [...] Differential Ord2 RDW 15.2 % 01/22/2015 B12 Ind339 B12 402.00 pg/ml 01/22/2015 Tsh Ord6 hTSH II 0.65 uIU/mL 01/22/2015 Lipid Ord30 CHOL 166 mg/dL 01/22/2015 Lipid Ord30 HDL 48.0 mg/dl 01/22/2015 Lipid Ord30 TRIG 264 mg/dL 01/22/2015 Lipid Ord30 LDL 65 mg/dL 01/22/2015 Lipid Ord30 C/HDL 3.5 Ratio 01/22/2015 Comp Metabolic Euh461 NA 138 mEq/L 01/22/2015 Comp Metabolic Kyf683 K 4.1 mEq/L 01/22/2015 Comp Metabolic Fex116 CL 104 mEq/L 01/22/2015 Comp Metabolic Iue180 CO2 29.0 mEq/L 01/22/2015 Comp Metabolic Ube707 AN ION GAP 9 01/22/2015 Comp Metabolic Orv586 GL UCOSE 106 mg/dL 01/22/2015 Comp Metabolic Lki453 Cr eat 0.9 mg/dL 01/22/2015 Comp Metabolic Eod956 eG FR 63 ml/min/1.73m2 01/22 Comp Metabolic Cyj474 BUN 21 mg/dL 01/22/2015 Comp Metabolic Two278 B/ C Ratio 22.3 Ratio 01/22/2015 Comp Metabolic Ole483 CA LCIUM 9.4 mg/dL 01/22/2015 Comp Metabolic Qdd357 AL K PHOS 83 U/L 01/22/2015 Comp Metabolic Mco677 T(SGOT) 23 U/L 01/22/2015 Comp Metabolic Rwj534 AL T(SGPT) 18 U/L 01/22/2015 Comp Metabolic Sct570 BI LI T 0.8 mg/dL 01/22/2015 Comp Metabolic Bmn642 AL BUMIN 4.2 g/dL 01/22/2015 Comp Metabolic Xyq530 TP RO 7.3 g/dL 01/22/2015 Comp Metabolic Geg538 GL OB 3.1 g/dL 01/22/2015 Comp Metabolic Zrt293 A/ G Ratio 1.4 Ratio 01/22/2015 Comp Metabolic Owv633 Os mo 279 mOsmo 01/22/2015 Review of [...] - General 1995 Ears/Nose/Throat otoscopic exam Overall: tympanic membranes clear [...] benign 01/18/2018 None Full Exam - General 1995 Ears/Nose/Throat oral cavity/pharynx/larynx Overall: no masses 01/18/2018 [...] Date URINALYSIS NONAUTO W /O SCOPE CPT-4: 56622 03/05/2017 Vital Signs Date Vital 04/14/2018 Blood Pressure 1: 116/78 Code: 8480-6 BMI: 41.6 Code: 56481-6 Heart Rate 1: 72 bpm Height: 5'1" SpO2: 98% Weight: 220 lbs 01/18/2018 Blood Pressure 1: 132/74 Code: 8480-6 BMI: 43.5 Code: 81135-9 Heart Rate 1: 70 bpm Height: 5'1" SpO2: 97% Weight: 230 lbs 01/04/2018 Blood Pressure 1: 134/76 Code: 8480-6 BMI: 42.7 Code: 08985-3 Heart Rate 1: 83 bpm Height: 5'1" SpO2: 98% Weight: 226 lbs 09/23/2017 Blood Pressure 1: 124/76 Code: 8480-6 BMI: 42.3 Code: 58223-1 Heart Rate 1: 94 bpm Height: 5'1" SpO2: 96% Weight: 224 lbs 05/27/2017 Blood Pressure 1: 146/78 Code: 8480-6 BMI: 41.4 Code: 63840-1 Heart Rate 1: 85 bpm Height: 5'1" SpO2: 98% Weight: 219 lbs 02/24/2017 Blood Pressure 1: 138/66 Code: 8480-6 BMI: 41.4 Code: 41263-9 Heart Rate 1: 78 bpm Height: 5'1" SpO2: 97% Weight: 219 lbs 11/02/2016 Blood Pressure 1: 144/72 Code: 8480-6 BMI: 46.1 Code: 59756-2 Heart Rate 1: 78 bpm Height: 5'1" SpO2: 98% Weight: 244 lbs 09/30/2016 Blood Pressure 1: 130/76 Code: 8480-6 BMI: 45.0 Code: 67778-1 Heart Rate 1: 86 bpm Height: 5'1" SpO2: 98% Weight: 238 lbs 09/10/2016 Blood Pressure 1: 136/68 Code: 8480-6 BMI: 46.3 Code: 81343-9 Heart Rate 1: 83 bpm Height: 5'1" SpO2: 98% Weight: 245 lbs 08/20/2016 Blood Pressure 1: 142/78 Code: 8480-6 BMI: 45.3 Code: 96296-8 Heart Rate 1: 84 bpm Height: 5'1" SpO2: 99% Weight: 240 lbs 06/08/2016 Blood Pressure 1: 134/76 Code: 8480-6 BMI: 44.2 Code: 62264-6 Heart Rate 1: 86 bpm Height: 5'1" SpO2: 96% Weight: 234 lbs 04/02/2016 Blood Pressure 1: 142/70 Code: 8480-6 BMI: 44.6 Code: 86069-4 Heart Rate 1: 78 bpm Height: 5'1" SpO2: 97% Weight: 236 lbs 01/14/2016 Blood Pressure 1: 146/72 Code: 8480-6 BMI: 44.2 Code: 72270-2 Heart Rate 1: 86 bpm Height: 5'1" SpO2: 96% Weight: 234 lbs 10/02/2015 Blood Pressure 1: 158/76 Code: 8480-6 BMI: 44.2 Code: 95932-1 Heart Rate 1: 67 bpm Height: 5'1" SpO2: 97% Weight: 234 lbs 07/15/2015 Blood Pressure 1: 148/78 Code: 8480-6 Blood Pressure 1: 200/90 Code: 8480-6 BMI: 44.0 Code: 06864-1 Heart Rate 1: 89 bpm Height: 5'1" SpO2: 97% Weight: 233 lbs 06/10/2015 Blood Pressure 1: 140/82 Code: 8480-6 BMI: 44.0 Code: 45537-8 Heart Rate 1: 78 bpm Height: 5'1" [...] wearing crocs and there was a new wallisian on the floor: her foot didn't move [...] Encounters Encounter Performer Loca tion Codes Date ([id number]) [id number] EST. 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 P ATIENT, LEVEL III Diagnosis: Localized edema[ICD10: R60.0] Diagnosis: Gastro-esophageal reflux disease without esophagitis[ICD10: K21.9] Edna Almanza MD, [facility] CPT-4: 19161 01/18/2018 ([id number]) 31514 EST. P ATIENT, LEVEL IV Diagnosis: Gastro-esophageal reflux disease without esophagitis[ICD10: K21.9] Diagnosis: Localized edema[ICD10: R60.0] Diagnosis: Essential (primary) hypertension[ICD10: I10] Diagnosis: Hypothyroidism, unspecified[ICD10: E03.9] Diagnosis: Impaired fasting glucose[ICD10: R73.01] Edna Almanza MD, [facility] CPT-4: 47944 01/04/2018 ([id number]) 00938 EST. 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 P ATIENT, LEVEL IV Diagnosis: Essential (primary) hypertension[ICD10: I10] Diagnosis: Mixed hyperlipidemia[ICD10: E78.2] Diagnosis: Hypothyroidism, unspecified[ICD10: E03.9] Diagnosis: Impaired fasting glucose[ICD10: R73.01] Diagnosis: residential (current) use of anticoagulants[ICD10: Z79.01] Edna Almanza MD, [facility] CPT-4: 59674 05/27/2017 [id number] EST. PATIENT, LEVEL III Diagnosis: Pain in right hip[ICD10: M25.551] Nata Almanza MD, [facility] CPT-4: 13680 02/24/2017 ([id number]) 62216 EST. P ATIENT, LEVEL IV Diagnosis: Essential (primary) hypertension[ICD10: I10] Diagnosis: Localized edema[ICD10: R60.0] Diagnosis: Pain in right hip[ICD10: M25.551] Sarai Almanza MD, [facility] CPT-4: 02148 11/02/2016 ([id number]) 62456 EST. P ATIENT, LEVEL IV Diagnosis: Essential (primary) hypertension[ICD10: I10] Diagnosis: Localized edema[ICD10: R60.0] Sarai Almanza MD, [facility] CPT-4: 14757 09/30/2016 [id number] EST. PATIENT, LEVEL IV Diagnosis: Localized edema[ICD10: R60.0] Diagnosis: Pain in joints of left hand[ICD10: M25.542] Diagnosis: Pain in joints of right hand[ICD10: M25.541] Nata Almanza MD, [facility] CPT-4: 34327 09/10/2016 [id number] EST. PATIENT, LEVEL IV Diagnosis: Localized edema[ICD10: R60.0] Diagnosis: Pain in joints of left hand[ICD10: M25.542] Diagnosis: Pain in joints of right hand[ICD10: M25.541] Diagnosis: Other fatigue[ICD10: R53.83] Nata Almanza MD, [facility] CPT-4: 11819 08/20/2016 [id number] EST. 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 PATIENT, LEVEL IV Diagnosis: Other allergic rhinitis[ICD10: J30.89] Diagnosis: Acute laryngopharyngitis[ICD10: J06.0] Nata Almanza MD, [facility] CPT-4: 53573 04/02/2016 [id number] EST. PATIENT, LEVEL IV Diagnosis: Left upper quadrant pain[ICD10: R10.12] Nata Almanza MD, [facility] CPT-4: 52761 01/14/2016 85917 EST. PATIENT, LEVEL IV Diagnosis: Pain in left shoulder[ICD10: M25.512] Diagnosis: Body mass index (BMI) 40.0-44.9, adult[ICD10: Z68.41] Nata Almanza MD, [facility] [facility] CPT-4: 99901 10/02/2015 [id number] EST. 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[ICD10: Z79.899] Edna Almanza MD, [facility] CPT-4: 18237 06/10/2015 ([id number]) OFFICE VISI T, NEW - LEVEL 4 Diagnosis: ESSENTIAL HYPERTENSION[ICD9: 401.9] Diagnosis: HYPOTHYROIDISM[ICD9: 244.9] Diagnosis: ENCNTR LONG-RX USE NEC[ICD9: V58.69] Diagnosis: HYPERLIPIDEMIA[ICD9: 272.4] Diagnosis: Vitamin B12 deficiency[ICD9: 266.2] Diagnosis: Status post gastric surgery[ICD9: V45.89] Diagnosis: Snoring[ICD9: 786.09] [facility] CPT-4: 14209 01/22/2015 Plan of Care Planned Activity Notes [...] A1C 04/14/2018 Appointment: Edna Douglas WPtel: [phone] [phone] (15 min) Moderate 04/14/2018 Patient Education: [...] to further attempt to reduce peripheral edema. QSIY-cvzgreyn-bphujlio prilosec BID and carafate QID -discussed low spice, low acidic diet 01/18/2018 Appointment: Edna Douglas WPtel: [phone] [phone] (15 min) Moderate 01/18/2018 Patient Education: [...] control. 01/04/2018 Appointment: Edna Douglas WPtel: [phone] [phone] (30 min) Complex 01/04/2018 Patient Education: Patient Medication Summary Completed 01/04/2018 Care Plan: SCREENINGMAMMOGRAPHYDIGITAL LOINC : 19772-2 Pending 01/04/2018 Visit Plan: Abdominal hernia - not able to be taken to surgery by local providers and pt has been seen at [facility] and that surgeon felt like [...] pressure readings at home. 09/23/2017 Appointment: [phone] ([facility] min) Moderate 09/23/2017 Patient [...] medications. 05/27/2017 Appointment: Edna Douglas WPtel: [phone] [id number] [place] (30 min) Complex 05/27/2017 Patient Education: [...] clearance by Dr. Palacios. 02/24/2017 Appointment: Nata Hus WPtel: [phone] [id number] [place] (30 min) Complex 02/24/2017 Patient Education: [...] Chaney. 11/02/2016 Appointment: Sar[facility]Ptel[phone] (15 min) Moderate 11/02/2016 Patient Education: [...] edema. 09/30/2016 Appointment: [facility]el[phone] (15 min) Moderate 09/30/2016 Patient Education: [...] edema. 09/10/2016 Appointment: Nata Hsu WPtel: [phone] (30 min) Complex 09/10/2016 Patient Education: [...] edema. 08/20/2016 Appointment: Nata Hsu WPtel: [phone] (30 min) Complex 08/20/2016 Patient Education: Patient Medication Summary Completed 08/20/2016 Referral: Otf Lee [address] Referral Initiated 07/02/2016 Visit Plan: Chronic [...] 06/08/2016 Care Plan: Referral Order SNOMED-CT : [id number] Pending 06/08/2016 Visit Plan: URI - Pt [...] spray. 04/02/2016 Appointment: Nata Hsu WPtel: [phone] [id number] (30 min) Complex 04/02/2016 Patient Education: Patient [...] pain 01/14/2016 Appointment: Edna Douglas WPtel: [phone] [phone] (30 min) Complex 01/14/2016 Patient Education: Patient Medication Summary Completed 01/14/2016 Patient Education: Obesity Completed 01/14/2016 Care Plan: BMI Above normal followup DAVID F-MGMT EDUC & TRAIN 1 PT Pending 10/24/2015 Care Plan: X-RAY EXAM OF SHOULDER LOINC : 99650-2 Pending 10/24/2015 Visit Plan: Left shoulder pain [...] check. 10/02/2015 Appointment: Edna Douglas WPtel: [phone] [phone] (15 min) Moderate 10/02/2015 Patient Education: [...] Almanza WPtel: [facility] (15 min) Moderate 04/22/2015 Visit Plan: Hypertension - well alesha ramirez [...] to medications. 01/22/2015 Appointment: Sarai Almanza WPtel: [address] [place], [place] [id number] [place] ([place]) New Patient 01/22/2015 Patient Education: Patient Medication Summary Completed 01/22/2015 Patient Education: Hypertension Completed 01/22/2015 [facility] [facility] Initiated Instructions Comment . Hypertension - [...] providers and pt has been seen at [facility] and that surgeon felt like Kat would be better served by Dr. Betancur at [facility]. I have recommended a referral [...] to the ER with acute pain . Surgical clearance for right hip replacement [...] to further attempt to reduce peripheral edema. OFGX-mjgwfvbr-oyfwvuzs prilosec BID and carafate QID -discussed low [...]
--- OUTSIDE RECORDS SUMMARY | 2020-01-16 23:58 | XMS REPORT | CCD ---
Author Author Kat Almanza Organization Sarai Almanza MD, [facility] Address [address] [place] [address] Phone Care Team Providers Care Command Center Officer Name Role Phone PP Unavailable CCM Unavailable Summary Purpose Interface Exchange Insurance Providers Payer name Policy type / Coverage type Covered alliance party ID Effective Begin Date Effective End Date WPS Medicare Part B Medicare Part B [id number] 2017 Unknown [employer] [place] Medicare Part B [id number] 2017 Unknown Family history Father Diagnosis Age At Onset Hyperlipidemia Unknown Heart Attack Unknown Mother Diagnosis Age At Onset Arthritis Unknown Social History Social History Element Codes Description Effective Dates Marital status Unknown M arried Nathan 09/30/2016 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 Number of children Unknown 3 01/22/[address]: 470520301 Never smoker 01/22/[address]: 795695616 Never drinks alcohol 01/22/2015 Allergies, Adverse Reactions, [...] ICD-10: R53.83 Active 08/20/2016 Unknown 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 04/18/2018 10/14/2018 Ac tive Generic For:ZYLOPRIM 300 MG TABLET 03/22 9:13:47 AM Lasix 20 mg tablet RxNorm: 921450 TAKE ONE TABLET BY MOUTH DAILY 04/18/2018 08/15/2018 Ac tive Generic For:LASIX 20MG 04/18/2018 9:13: 50 AM Carafate 1 gram tablet RxNorm: 045091 TAKE ONE TABLET BY MOUTH BEFORE MEALS AN D AT BEDTIME 04/18/2018 05/29/2018 Active Generic For:CARAFATE 1GM 9:32:51 AM Coumadin 5 mg tablet RxNorm: 219186 TAKE 1 TABLET BY MOUTH DIRECTED 03/21/2018 09/16/2018 Ac tive Generic For:COUMADIN 5MG TAB 03/21/2018 9:13:00 AM Carafate 1 gram tablet RxNorm: 501019 TAKE ONE TABLET BY MOUTH BEFORE MEALS AN D AT BEDTIME 03/21/2018 04/17/2018 Inactive Generic For:CARAFATE 1GM 1 9:14:24 AM Carafate 1 gram tablet RxNorm: 075220 1 Tablet(s) PO AC & HS 02/17/2018 03/20/2018 Inactive atenolol 100 mg tablet RxNorm: 952595 1 Tablet(s) PO daily 02/04/2018 09/01/2018 Active atenolol 50 mg tablet RxNorm: 852727 1 Tablet(s) PO daily 02/03/2018 02/03/2018 Inactive omeprazole 20 mg cap sean,delayed release RxNorm: 257789 1 Capsule(s) BID 01/21/2018 01/15/2019 Ac tive Generic For:PRILOSEC 20MG 07/22/2017 8:5 8:20 AM Carafate 1 gram tablet RxNorm: 844871 1 Tablet(s) PO AC & HS 01/21/2018 02/16/2018 Inactive Carafate 1 gram tablet RxNorm: 547425 1 Tablet(s) PO AC & HS TAKE ONE TABLET B Y MOUTH TWICE DAILY 01/18/2018 02/14/2018 Inactive Generic For:CARAFATE 1GM 0 12/20/2017 9:10:56 AM Carafate 1 gram tablet RxNorm: 717065 1 Tablet(s) PO AC & HS 01/18/2018 01/20/2018 Inactive Carafate 1 gram tablet RxNorm: 270689 1 Tablet(s) PO AC & HS 01/18/2018 02/27/2018 Inactive omeprazole 20 mg cap sean,delayed release RxNorm: 444206 Capsule(s) TAKE 1 CAP SEAN BY MOUTH EVERY DAY 01/17/2018 01/20/2018 Inactive Generic For:PRILOSEC 20MG 0 07/22/2017 8:58:20 AM omeprazole 20 mg cap sean,delayed release RxNorm: 996540 Capsule(s) TAKE 1 CAP SEAN BY MOUTH EVERY DAY 01/14/2018 01/16/2018 Inactive Generic For:PRILOSEC 20MG 07/22/2017 8:58:20 AM clonazepam 0.5 mg ta blet RxNorm: 363830 1 Tablet(s) PO BID 01/07/2018 06/05/2018 Active Plavix 75 mg tablet RxNorm: 068992 1 Tablet(s) PO daily 01/07/2018 07/05/2018 Active Carafate 1 gram tablet RxNorm: 065123 1 Tablet(s) PO AC & HS 01/04/2018 01/17/2018 Inactive sodium bicarbonate 6 50 mg tablet RxNorm: 404892 TAKE 2 TABLETS BY JAVON TH TWICE DAILY 12/20/2017 06/17/2018 Ac tive 12/20/2017 9:10:59 AM Lasix 20 mg tablet RxNorm: 174202 TAKE ONE TABLET BY MOUTH DAILY 12/20/2017 04/17/2018 In active Generic For:LASIX 20MG 12/20/2017 9:11: 03 AM Carafate 1 gram tablet RxNorm: 876787 TAKE ONE TABLET BY MOUTH TWICE DAILY 12/20/2017 01/17/2018 In active Generic For:CARAFATE 1GM 12/20/2017 9:1 0:56 AM Synthroid 137 mcg ta blet RxNorm: 367459 TAKE 1 TABLET BY MOUT H ONCE DAILY 11/19/2017 05/17/2018 Ac tive Generic For:SYNTHROID 137MCG TAB 2017 8:58:04 AM Detrol LA 4 mg capsu le,extended release RxNorm: 510230 TAKE 1 CAPSULE BY JAVON TH ONCE DAILY 10/20/2017 04/13/2018 Inactive Generic For:DETROL LA 4MG C AP 10/20/2017 9:01:56 AM allopurinol 300 mg t ablet RxNorm: 358562 TAKE 1 TABLET BY MOUT H ONCE DAILY. 10/20/2017 04/17/2018 In active Generic For:ZYLOPRIM 300 MG TABLET 07/2017 9:01:59 AM Coumadin 5 mg tablet RxNorm: 509309 1 Tablet(s) PO UD 10/01/2017 03/20/2018 Inactive cyclobenzaprine 5 mg tablet RxNorm: 616049 1 Tablet(s) PO TID as needed myscle spasm 09/23/2017 10/12/2017 Inactive Lipitor 40 mg tablet RxNorm: 376449 TAKE 1 TABLET BY MOUTH ONCE DAILY 09/20/2017 09/14/2018 Ac tive Generic For:LIPITOR 40MG 09/20/2017 8:5 6:04 AM atenolol 100 mg tablet RxNorm: 833640 1 Tablet(s) PO daily 08/30/2017 02/03/2018 Inactive atenolol 50 mg tablet RxNorm: 482577 1 Tablet(s) PO daily 08/30/2017 08/30/2017 Inactive Lovenox 30 mg/0.3 mL subcutaneous syringe RxNorm: 383262 0.3 Milliliter(s) SQ Q12H 08/24/2017 09/06/2017 In active Lasix 20 mg tablet RxNorm: 628952 TAKE ONE TABLET BY MOUTH DAILY 08/23/2017 12/19/2017 In active Generic For:LASIX 20MG 08/21/2017 9:04: 27 AM Synthroid 137 mcg ta blet RxNorm: 686037 TAKE 1 TABLET BY MOUT H ONCE DAILY 08/23/2017 11/18/2017 In active Generic For:SYNTHROID 137MCG TAB 2017 9:04:30 AM Lovenox 30 mg/0.3 mL subcutaneous syringe RxNorm: 567732 0.3 Milliliter(s) SQ Q12H 08/10/2017 08/23/2017 In active clonazepam 0.5 mg ta blet RxNorm: 014726 1 Tablet(s) PO BID 08/04/2017 12/30/2017 Inactive Coumadin 4 mg tablet RxNorm: 192389 TAKE 1 TABLET BY MOUTH THREE TIMES PER [place] (WEDNESDAY, WEDNESDAY AND WEDNESDAY) 07/22/2017 02/16/2018 Inactive Generic For:COUMADIN 4MG 07/22/2017 8:58:26 AM Coumadin 4 mg tablet RxNorm: 460161 TAKE 1 TABLET BY MOUTH THREE TIMES PER [place] (WEDNESDAY, WEDNESDAY AND WEDNESDAY) 07/22/2017 02/16/2018 Inactive Generic For:COUMADIN 4MG 07/22/2017 8:58:26 AM omeprazole 20 mg cap sean,delayed release RxNorm: 166339 TAKE 1 CAPSULE BY JAVON TH EVERY DAY 07/22/2017 01/13/2018 Inactive Generic For:PRILOSEC 20MG 07/22/2017 8: 58:20 AM venlafaxine ER 75 mg capsule,extended release 24 hr RxNorm: 046106 TAKE 1 CAPSULE BY MOUTH ONCE DAILY 06/22/2017 06/16/2018 Active Generic For:*EFFEXOR XR 75MG 06/19/2017 12:23:45 PM sodium bicarbonate 6 50 mg tablet RxNorm: 429201 TAKE 2 TABLETS BY JAVON TH TWICE DAILY 06/22/2017 12/18/2017 In active 06/19/2017 12:23:30 PM Coumadin 5 mg tablet RxNorm: 141213 1 Tablet(s) PO UD 06/01/2017 09/30/2017 Inactive Keflex 500 mg capsule RxNorm: 488701 1 Capsule(s) PO TID 05/27/2017 06/02/2017 Inactive spironolactone 25 mg tablet RxNorm: 193492 1 Tablet(s) PO daily 05/24/2017 05/18/2018 Active Synthroid 137 mcg ta blet RxNorm: 745215 TAKE 1 TABLET BY MOUT H ONCE DAILY 05/24/2017 08/21/2017 In active Generic For:SYNTHROID 137MCG TAB 2016 8:55:59 AM Carafate 1 gram tablet RxNorm: 178348 TAKE ONE TABLET BY MOUTH TWICE DAILY 05/24/2017 12/19/2017 In active Generic For:CARAFATE 1GM 05/24/2017 8:5 5:54 AM Detrol LA 4 mg capsu le,extended release RxNorm: 581642 1 Capsule(s) PO daily TAKE 1 CAPSULE BY MOUTH ONCE DAILY 05/10/2017 10/19/2017 Inactive Generic For:DETROL LA 4MG CAP 02/19/2017 2:36:00 PM Lasix 20 mg tablet RxNorm: 653724 TAKE ONE TABLET BY MOUTH DAILY 04/23/2017 08/20/2017 In active Generic For:LASIX 20MG 04/23/2017 9:04: 01 AM Coumadin 4 mg tablet RxNorm: 661176 TAKE 1 TABLET BY MOUTH THREE TIMES PER [place] (WEDNESDAY, WEDNESDAY AND WEDNESDAY) 04/23/2017 07/21/2017 Inactive Generic For:COUMADIN 4MG 04/23/2017 9:04:05 AM allopurinol 300 mg t ablet RxNorm: 672387 TAKE 1 TABLET BY MOUT H ONCE DAILY. 04/23/2017 10/19/2017 In active Generic For:ZYLOPRIM 300 MG TABLET 08/2016 9:03:57 AM potassium chloride 2 0 mEq/15 mL oral liquid RxNorm: 877875 Milliliter(s) 30 Milliliter(s) (40mEq) PO daily 03/24/2017 07/21/2017 Inactive Lovenox 30 mg/0.3 mL subcutaneous syringe RxNorm: 737019 0.3 Milliliter(s) SQ Q12H 03/22/2017 03/26/2017 In active Lovenox 30 mg/0.3 mL subcutaneous syringe RxNorm: 905545 0.3 Milliliter(s) SQ Q12H 03/19/2017 03/20/2017 In active Lovenox 30 mg/0.3 mL subcutaneous syringe RxNorm: 053102 0.3 Milliliter(s) SQ Q12H 03/16/2017 03/18/2017 In active clonazepam 0.5 mg ta blet RxNorm: 643693 1 Tablet(s) PO BID 03/02/2017 07/28/2017 Inactive Lovenox 30 mg/0.3 mL subcutaneous syringe RxNorm: 707791 1 injection SQ BID do NOT take the night time dose the day before surgery, or the morning dose the day of surgery 03/01/2017 03/07/2017 Inactive Lovenox 30 mg/0.3 mL subcutaneous syringe RxNorm: 688905 1 injection SQ BID 03/01/2017 02/28/2017 In active Detrol LA 4 mg capsu le,extended release RxNorm: 538022 TAKE 1 CAPSULE BY JAVON TH ONCE DAILY 02/19/2017 05/09/2017 Inactive Generic For:DETROL LA 4MG C AP 02/19/2017 2:36:00 PM hydrocodone 5 mg-humberto taminophen 325 mg tablet RxNorm: 545567 1-2 Tablet(s) PO Q6 P RN 02/04/2017 No Stop Date Active Zetia 10 mg tablet RxNorm: 852382 TAKE 1 TABLET BY MOUTH DAILY 01/25/2017 04/13/2018 Inactive 01/23/2017 9:03:48 AM omeprazole 20 mg cap sean,delayed release RxNorm: 471477 TAKE 1 CAPSULE BY JAVON TH EVERY DAY 01/25/2017 07/21/2017 Inactive Generic For:PRILOSEC 20MG 01/23/2017 9: 03:45 AM Coumadin 4 mg tablet RxNorm: 412228 TAKE 1 TABLET BY MOUTH THREE TIMES PER [place] (WEDNESDAY, WEDNESDAY AND WEDNESDAY) 01/25/2017 04/22/2017 Inactive Generic For:COUMADIN 4MG 01/23/2017 9:03:51 AM sodium bicarbonate 6 50 mg tablet RxNorm: 660878 TAKE 2 TABLETS BY JAVON TH TWICE DAILY 12/24/2016 06/21/2017 In active 12/24/2016 9:09:27 AM Lasix 20 mg tablet RxNorm: 414237 1 Tablet(s) PO daily 12/24/2016 04/22/2017 Inactive Synthroid 137 mcg ta blet RxNorm: 215032 TAKE 1 TABLET BY MOUT H ONCE DAILY 11/24/2016 05/22/2017 In active Generic For:SYNTHROID 137MCG TAB 2016 9:04:37 AM Coumadin 4 mg tablet RxNorm: 964482 TAKE 1 TABLET BY MOUTH THREE TIMES PER [place] (WEDNESDAY, WEDNESDAY AND WEDNESDAY) 11/24/2016 01/22/2017 Inactive Generic For:COUMADIN 4MG 11/24/2016 9:04:41 AM hydrocodone 5 mg-humberto taminophen 325 mg tablet RxNorm: 868616 1-2 Tablet(s) PO Q6 P RN 11/17/2016 02/03/2017 In active Carafate 1 gram tablet RxNorm: 855386 TAKE ONE TABLET BY MOUTH TWICE DAILY 10/27/2016 05/23/2017 In active Generic For:CARAFATE 1GM 10/26/2016 8:3 9:42 AM allopurinol 300 mg t ablet RxNorm: 948372 Tablet(s) TAKE 1 TABL ET BY MOUTH ONCE DAILY. 10/26/2016 04/22/2017 Inactive Lipitor 40 mg tablet RxNorm: 582478 1 Tablet(s) PO daily 09/25/2016 09/19/2017 Inactive Coumadin 4 mg tablet RxNorm: 509202 TAKE 1 TABLET BY MOUTH THREE TIMES PER [place] (WEDNESDAY, WEDNESDAY AND WEDNESDAY) 09/25/2016 11/23/2016 Inactive Generic For:COUMADIN 4MG 09/25/2016 8:55:58 AM Zetia 10 mg tablet RxNorm: 636584 1 Tablet(s) PO daily 09/25/2016 01/22/2017 Inactive gave 1 month of samples clonazepam 0.5 mg ta blet RxNorm: 960798 1 Tablet(s) PO BID 09/21/2016 02/16/2017 Inactive Lasix 20 mg tablet RxNorm: 1 Tablet(s) PO daily 09/15/2016 12/23/2016 Inactive potassium chloride 2 0 mEq/15 mL oral liquid RxNorm: 925200 Milliliter(s) 30 Milliliter(s) (40mEq) PO daily 09/15/2016 01/12/2017 Inactive Lasix 20 mg tablet RxNorm: 2 Tablet(s) PO daily 09/10/2016 09/12/2016 Inactive Lasix 20 mg tablet RxNorm: 1 Tablet(s) PO daily 08/28/2016 08/30/2016 Inactive Lasix 20 mg tablet RxNorm: 1 Tablet(s) PO daily 08/20/2016 08/22/2016 Inactive Detrol LA 4 mg capsu le,extended release RxNorm: 409703 TAKE 1 CAPSULE BY JAVON TH ONCE DAILY 07/27/2016 02/18/2017 Inactive Generic For:DETROL LA 4MG C AP 07/27/2016 9:08:27 AM Coumadin 4 mg tablet RxNorm: 579692 1 Tablet(s) PO 3 x week tue thur and sun 07/27/2016 09/24/2016 In active omeprazole 20 mg cap sean,delayed release RxNorm: 073202 Capsule(s) PO TAKE 1 CAPSULE BY MOUTH ONCE DAILY 07/27/2016 01/22/2017 Inactive venlafaxine ER 75 mg capsule,extended release 24 hr RxNorm: 902085 1 Capsule(s) PO daily 06/29/2016 06/21/2017 Inactive sodium bicarbonate 6 50 mg tablet RxNorm: 934897 TAKE 2 TABLETS BY JAVON TH TWICE DAILY 06/29/2016 12/23/2016 In active 06/27/2016 9:05:39 AM Coumadin 4 mg tablet RxNorm: 444402 1 Tablet(s) PO 3 x week e and sun 06/09/2016 06/08/2016 In active Coumadin 4 mg tablet RxNorm: 135937 1 Tablet(s) PO 3 x week e thur and sun 06/09/2016 07/26/2016 In active Zetia 10 mg tablet RxNorm: 801593 1 Tablet(s) PO daily 06/09/2016 06/08/2016 Inactive gave 1 month of samples Zetia 10 mg tablet RxNorm: 462483 1 Tablet(s) PO daily 06/09/2016 09/24/2016 Inactive gave 1 month of samples Effexor 75 mg tablet RxNorm: 746961 1 Tablet(s) PO daily 06/08/2016 06/28/2016 Inactive spironolactone 25 mg tablet RxNorm: 063129 1 Tablet(s) PO daily 06/08/2016 05/23/2017 Inactive Synthroid 137 mcg ta blet RxNorm: 281494 1 Tablet(s) PO daily 05/07/2016 11/02/2016 Inactive allopurinol 300 mg t ablet RxNorm: 580968 Tablet(s) TAKE 1 TABL ET BY MOUTH ONCE DAILY. 04/28/2016 10/24/2016 Inactive clonazepam 0.5 mg ta blet RxNorm: 562525 1 Tablet(s) PO BID 04/20/2016 09/15/2016 Inactive Flonase Allergy Reli ef 50 mcg/actuation nasal spray,suspension RxNorm: 7999747 1 [place] NASAL BID 04/02/2016 No Stop Date Active Zithromax Z-Thomas 250 mg tablet RxNorm: 010019 Tablet(s) PO 04/02/2016 08/27/2016 Inactive cetirizine 10 mg tablet RxNorm: 1206573 1 Tablet(s) PO daily 04/02/2016 05/01/2016 Inactive Carafate 1 gram tablet RxNorm: 235223 Tablet(s) TAKE 1 TABLET TWICE A DAY FOR 30 DAYS 03/30/2016 10/25/2016 Inactive Generic For:CARAFATE 1GM 02/08/2015 12:3 6:39 PM Plavix 75 mg tablet RxNorm: 237701 1 Tablet(s) PO daily 03/11/2016 09/06/2016 Inactive sodium bicarbonate 6 50 mg tablet RxNorm: 368295 Tablet(s) 2 Tablet(s) PO BID 02/28/2016 06/26/2016 In active omeprazole 20 mg cap sean,delayed release RxNorm: 316101 Capsule(s) PO TAKE 1 CAPSULE BY MOUTH ONCE DAILY 01/31/2016 07/26/2016 Inactive Fish Oil 1,000 mg ca psule RxNorm: 1 Capsule(s) PO BID 01/14/2016 No Stop Date Active Synthroid 137 mcg ta blet RxNorm: 998732 1 Tablet(s) PO daily 01/14/2016 05/06/2016 Inactive Detrol LA 4 mg capsu le,extended release RxNorm: 073109 TAKE 1 CAPSULE BY JAVON TH ONCE DAILY 12/30/2015 07/26/2016 Inactive Generic For:DETROL LA 4MG C AP 12/30/2015 9:11:01 AM potassium chloride 2 0 mEq/15 mL oral liquid RxNorm: 431314 Milliliter(s) 30 Milliliter(s) (40mEq) PO daily 12/02/2015 03/30/2016 Inactive sodium bicarbonate 6 50 mg tablet RxNorm: 902884 Tablet(s) 2 Tablet(s) PO BID 10/31/2015 02/27/2016 In active Lipitor 40 mg tablet RxNorm: 846367 1 Tablet(s) PO daily 10/09/2015 09/24/2016 Inactive sodium bicarbonate 6 50 mg tablet RxNorm: 727011 2 Tablet(s) PO BID 10/01/2015 10/30/2015 Inactive allopurinol 300 mg t ablet RxNorm: 639572 TAKE 1 TABLET BY MOUT H ONCE DAILY. 10/01/2015 04/27/2016 In active Generic For:ZYLOPRIM 300 MG TABLET 09/19 9:21:15 AM clonazepam 0.5 mg ta blet RxNorm: 401332 1 Tablet(s) PO BID 09/30/2015 04/19/2016 Inactive Coumadin 5 mg tablet RxNorm: 314427 1 Tablet(s) PO daily 09/27/2015 05/31/2017 Inactive Generic For:COUMADIN 5MG TAB N O T I C E PRESCRIPTION PREVIOUSLY AUTHORIZED BY DOCTOR:BOBBY ZULETA Synthroid 125 mcg ta blet RxNorm: 526191 1 Tablet(s) PO daily 09/27/2015 09/26/2015 Inactive Synthroid 125 mcg ta blet RxNorm: 342873 1 Tablet(s) PO daily 09/27/2015 01/13/2016 Inactive Carafate 1 gram tablet RxNorm: 432493 Tablet(s) TAKE 1 TABLET TWICE A DAY FOR 30 DAYS 09/02/2015 03/29/2016 Inactive Generic For:CARAFATE 1GM 02/08/2015 12:3 6:39 PM sodium bicarbonate 6 50 mg tablet RxNorm: 660679 2 Tablet(s) PO BID 09/02/2015 09/30/2015 Inactive Prilosec 20 mg capsu le,delayed release RxNorm: 668286 TAKE 1 CAPSULE BY JAVON TH ONCE DAILY 08/02/2015 01/28/2016 Inactive Generic For:PRILOSEC 20MG 08/02/2015 10:03:09 AM N O T I C E PRESCRIPTION PREVIOUSLY AUTHORIZED BY DOCTOR:BOBBY ZULETA Zyrtec 10 mg capsule RxNorm: 2800444 1 Capsule(s) PO daily 07/15/2015 08/13/2015 Inactive Keflex 500 mg capsule RxNorm: 531174 1 Capsule(s) PO TID 07/15/2015 07/21/2015 Inactive cetirizine 10 mg cap sean RxNorm: 9191792 1 Capsule(s) PO daily 07/15/2015 08/13/2015 Inactive hydrocodone 5 mg-humberto taminophen 325 mg tablet RxNorm: 375623 1-2 Tablet(s) PO Q6 P RN 06/10/2015 11/16/2016 In active sodium bicarbonate 6 50 mg tablet RxNorm: 334307 2 Tablet(s) PO BID 06/03/2015 08/31/2015 Inactive Detrol LA 4 mg capsu le,extended release RxNorm: 142082 TAKE 1 CAPSULE BY JAVON TH ONCE DAILY 06/03/2015 12/29/2015 Inactive Generic For:DETROL LA 4MG C AP N O T I C E PRESCRIPTION PREVIOUSLY AUTHORIZED BY DOCTOR:BOBBY ZULETA atenolol 50 mg tablet RxNorm: 369839 1 Tablet(s) PO daily TAKE 1 TABLET BY MO UTH DAILY 05/07/2015 08/23/2017 Inactive Generic For:TENORMIN 50MG 05/04/2015 9:07:22 AM spironolactone 25 mg tablet RxNorm: 074126 1 Tablet(s) PO daily 05/06/2015 06/07/2016 Inactive venlafaxine ER 75 mg capsule,extended release 24 hr RxNorm: 320975 1 Capsule(s) PO daily 05/04/2015 06/28/2016 Inactive atenolol 50 mg tablet RxNorm: 528486 TAKE 1 TABLET BY MOUTH DAILY 05/04/2015 05/06/2015 Inactive Generic For:TENORMIN 50MG 05/04/2015 9: 07:22 AM Synthroid 150 mcg ta blet RxNorm: 083511 TAKE 1 TABLET BY MOUT H ONCE DAILY. 04/05/2015 09/26/2015 In active Generic For:SYNTHROID 150MCG TAB 2014 4:45:40 PM N O T I C E PRESCRIPTION PREVIOUSLY AUTHORIZED BY DOCTOR:BOBBY ZULETA Effexor 75 mg tablet RxNorm: 909184 1 Tablet(s) PO daily 04/05/2015 07/03/2015 Inactive Coumadin 5 mg tablet RxNorm: 516641 TAKE 1 AND 1/2 TABLETS BY MOUTH ONCE MYRANDA LY 04/04/2015 09/26/2015 In active Generic For:COUMADIN 5MG TAB N O T I C E PRESCRIPTION PREVIOUSLY AUTHORIZED BY DOCTOR:BOBBY ZULETA clonazepam 0.5 mg ta blet RxNorm: 536551 1 Tablet(s) PO BID 03/13/2015 11/05/2015 Inactive sodium bicarbonate 6 50 mg tablet RxNorm: 066168 2 Tablet(s) PO BID 03/08/2015 06/02/2015 Inactive allopurinol 300 mg t ablet RxNorm: 365753 TAKE 1 TABLET BY MOUT H ONCE DAILY. 03/05/2015 09/30/2015 In active N O T I C E PRESCRIPTION PREVIOUSLY A UTHORIZED BY DOCTOR:BOBBY ZULETA Plavix 75 mg tablet RxNorm: 042615 1 Tablet(s) PO daily 02/12/2015 09/09/2015 Inactive clonazepam 0.5 mg ta blet RxNorm: 684316 1 Tablet(s) PO BID 02/11/2015 03/11/2015 Inactive Carafate 1 gram tablet RxNorm: 695044 TAKE 1 TABLET TWICE A DAY FOR 30 DAYS 02/08/2015 02/07/2015 In active Generic For:CARAFATE 1GM 02/08/2015 12:3 6:39 PM Carafate 1 gram tablet RxNorm: 005519 Tablet(s) TAKE 1 TABLET TWICE A DAY FOR 30 DAYS 02/08/2015 09/01/2015 Inactive Generic For:CARAFATE 1GM 02/08/2015 12:3 6:39 PM potassium chloride 2 0 mEq/15 mL oral liquid RxNorm: 144777 30 Milliliter(s) (40m Eq) PO daily 02/05/2015 12/01/2015 Inactive atenolol 50 mg tablet RxNorm: 558502 1 Tablet(s) PO daily 02/04/2015 05/03/2015 Inactive [SAVINGS FOR NON-COVERED DRUGS -- BIN:00 3585, PCN: ASPROD1, Group: XXXXX, ID# XXXXXXX, Questions: . THIS IS NOT INSURANCE.] potassium chloride 2 0 mEq/15 mL oral liquid RxNorm: 125064 30 Milliliter(s) (40m Eq) PO daily 01/08/2015 02/04/2015 Inactive potassium chloride 2 0 mEq/15 mL oral liquid RxNorm: 400115 30 Milliliter(s) (40m Eq) PO daily 12/07/2014 01/07/2015 Inactive atenolol 50 mg tablet RxNorm: 517329 1 Tablet(s) PO daily 11/09/2014 11/08/2014 Inactive atenolol 50 mg tablet RxNorm: 207225 1 Tablet(s) PO daily 11/09/2014 02/03/2015 Inactive [SAVINGS FOR NON-COVERED DRUGS -- BIN:00 3585, PCN: ASPROD1, Group: XXXXX, ID# XXXXXXX, Questions: . THIS IS NOT INSURANCE.] Voltaren 1 % topical gel RxNorm: 441571 TOP No St art Date Active verapamil ER (HS) 24 0 mg tablet,extended release 24 hr RxNorm: 019299 1 Tablet(s) PO daily No Start Date Active aspirin 81 mg tablet RxNorm: 943495 1 Tablet(s) PO daily No Start Date Active Zofran 4 mg tablet RxNorm: 196152 1 Tablet(s) PO PRN No Start Date Active B12 1000 mcg RxNorm: 1 Tablet(s) PO daily No Start Date Active magnesium oxide 400 mg capsule RxNorm: 651935 2 Capsule(s) PO BID No Start Date Active Synthroid 150 mcg ta blet RxNorm: 925784 1 Tablet(s) PO daily No Start Date 04/04/2015 Inactive Coumadin 5 mg tablet RxNorm: 013128 1 Tablet(s) PO daily No Start Date 04/03/2015 Inactive cranberry 1,000 mg c apsule RxNorm: 889329 1 Capsule(s) PO daily No Start Date 04/13/2018 Inactive allopurinol 300 mg t ablet RxNorm: 519243 1 Tablet(s) PO daily No Start Date 03/04/2015 Inactive Prilosec 20 mg capsu le,delayed release RxNorm: 536504 1 Capsule(s) PO PRN No Start Date 08/01/2015 Inactive potassium chloride 2 0 mEq/15 mL oral liquid RxNorm: 059804 30 Milliliter(s) (40m Eq) PO daily No Start Date 12/06/2014 Inactive atenolol 50 mg tablet RxNorm: 187266 1 Tablet(s) PO daily No Start Date 08/29/2017 Inactive Lipitor 40 mg tablet RxNorm: 791647 1 Tablet(s) PO daily No Start Date 09/19/2017 Inactive Effexor 75 mg tablet RxNorm: 669816 1 Tablet(s) PO daily No Start Date 04/04/2015 Inactive Carafate 1 gram tablet RxNorm: 295218 1 Tablet(s) PO BID No Start Date 02/07/2015 Inactive clonazepam 0.5 mg ta blet RxNorm: 448467 1 Tablet(s) PO BID No Start Date 02/10/2015 Inactive Plavix 75 mg tablet RxNorm: 050247 1 Tablet(s) PO daily No Start Date 02/11/2015 Inactive sodium bicarbonate 6 50 mg tablet RxNorm: 139840 2 Tablet(s) PO BID No Start Date 09/01/2015 Inactive Lovenox 30 mg/0.3 mL subcutaneous syringe RxNorm: 554486 0.3 Milliliter(s) SQ Q12H No Start Date 03/15/2017 Inactive Fish Oil 1,000 mg ca psule RxNorm: 1 Capsule(s) PO daily No Start Date 01/13/2016 Inactive Detrol LA 4 mg capsu le,extended release RxNorm: 158746 1 Capsule(s) PO daily No Start Date [...] fatigue ICD-10: R53.83 ICD-9: 780.79 08/20/2016 Other fdc (current) drug therapy ICD-10: Z79.899 ICD-9: V58.69 [...] Code Item Item Code Result Date Pt [id number] PT 16.7 seconds 05/04/2018 Pt Dty2050 INR 1.4 05/04/2018 Pt Grb5573 Low Intensity - 1.5-2.0 05/04/2018 Pt Wgx0533 Mod intensity - 2.0-3.0 05/04/2018 Pt Mgo1514 Hi intensity - 3.0-4.0 05/04/2018 Free T4 Xej697 FREE T4 1.09 ng/dL 04/14/2018 Tsh Ord6 TSH (3rd IS) 2.36 uIU/mL 04/14/2018 Pt Pzx1019 PT 20.3 seconds 04/14/2018 Pt Rqj1098 INR 1.8 04/14/2018 Pt Rhm0131 Low Intensity - 1.5-2.0 04/14/2018 Pt Von5729 Mod intensity - 2.0-3.0 04/14/2018 Pt Rif1837 Hi intensity - 3.0-4.0 04/14/2018 Lipid Ord30 CHOL 149 mg/dL 04/14/2018 Lipid Ord30 HDL 49.0 mg/dl 04/14/2018 Lipid Ord30 TRIG 161 mg/dL 04/14/2018 Lipid Ord30 LDL 68 mg/dL 04/14/2018 Lipid Ord30 C/HDL 3.0 Ratio 04/14/2018 %Hba1C Vfd593 % HbA1c 79162-3 5.9 % 04/14/2018 %Hba1C Tor026 Gluc Ave 123 mg/dL 04/14/2018 Comp Metabolic Wlx381 NA 140 mEq/L 04/14/2018 Comp Metabolic Zcd528 K 4.1 mEq/L 04/14/2018 Comp Metabolic Xif912 CL 105 mEq/L 04/14/2018 Comp Metabolic Fys205 CO2 28.0 mEq/L 04/14/2018 Comp Metabolic Tzm781 AN ION GAP 11 04/14/2018 Comp Metabolic Kgw088 GL UCOSE 112 mg/dL 04/14/2018 Comp Metabolic Hip281 Cr eat 1.0 mg/dL 04/14/2018 Comp Metabolic Fgg940 eG FR 58 ml/min/1.73m2 04/14 Comp Metabolic Wvo297 BUN 20 mg/dL 04/14/2018 Comp Metabolic Efs986 B/ C Ratio 20.2 Ratio 04/14/2018 Comp Metabolic Cja536 CA LCIUM 10.0 mg/dL 04/14/2018 Comp Metabolic Qmh271 AL K PHOS 51 U/L 04/14/2018 Comp Metabolic Xvq923 T(SGOT) 24 U/L 04/14/2018 Comp Metabolic Rah572 AL T(SGPT) 21 U/L 04/14/2018 Comp Metabolic Ehg050 BI LI T 0.8 mg/dL 04/14/2018 Comp Metabolic Jkk722 AL BUMIN 4.2 g/dL 04/14/2018 Comp Metabolic Lov305 TP RO 7.1 g/dL 04/14/2018 Comp Metabolic Qah938 GL OB 2.9 g/dL 04/14/2018 Comp Metabolic Erg228 A/ G Ratio 1.5 Ratio 04/14/2018 Comp Metabolic Wup839 Os mo 283 mOsmo 04/14/2018 Cbc With [...] 30.7 pg 04/14/2018 Cbc With Differential Ord2 [place]% 10.6 % 04/14/2018 Cbc With Differential Ord2 [...] 1.18 K/ul 04/14/2018 Cbc With Differential Ord2 [place] ABS# 0.5 K/ul 04/14/2018 Cbc With Differential Ord2 [place] ABS# 0.2 K/ul 04/14/2018 Cbc With Differential Ord2 Baso ABS# 0.1 K/ul 04/14/2018 Pt [id number] PT 29.3 seconds 02/11/2018 Pt Rox5010 INR 2.8 02/11/2018 Pt Rqp7140 Low Intensity - 1.5-2.0 02/11/2018 Pt Qlb6939 Mod intensity - 2.0-3.0 02/11/2018 Pt Fqb7599 Hi intensity - 3.0-4.0 02/11/2018 Comp Metabolic Thc195 NA 141 mEq/L 01/05/2018 Comp Metabolic Orm567 K 3.7 mEq/L 01/05/2018 Comp Metabolic Auy075 CL 102 mEq/L 01/05/2018 Comp Metabolic Hec849 CO2 29.0 mEq/L 01/05/2018 Comp Metabolic Awk868 AN ION GAP 14 01/05/2018 Comp Metabolic Bxi161 GL UCOSE 136 mg/dL 01/05/2018 Comp Metabolic Pcr387 Cr eat 1.0 mg/dL 01/05/2018 Comp Metabolic Ziu431 eG FR 61 ml/min/1.73m2 01/05 Comp Metabolic Ggr571 BUN 22 mg/dL 01/05/2018 Comp Metabolic Fii786 B/ C Ratio 22.9 Ratio 01/05/2018 Comp Metabolic Orf774 CA LCIUM 9.7 mg/dL 01/05/2018 Comp Metabolic Wqw013 AL K PHOS 57 U/L 01/05/2018 Comp Metabolic Qzw363 T(SGOT) 21 U/L 01/05/2018 Comp Metabolic Tvw072 AL T(SGPT) 19 U/L 01/05/2018 Comp Metabolic Leg864 BI LI T 0.9 mg/dL 01/05/2018 Comp Metabolic Ueh259 AL BUMIN 4.1 g/dL 01/05/2018 Comp Metabolic Eip622 TP RO 7.1 g/dL 01/05/2018 Comp Metabolic Axv725 GL OB 3.0 g/dL 01/05/2018 Comp Metabolic Vyr765 A/ G Ratio 1.4 Ratio 01/05/2018 Comp Metabolic Hgc799 Os mo 287 mOsmo 01/05/2018 Free T4 Dia022 FREE T4 1.05 ng/dL 01/05/2018 %Hba1C Foq323 % HbA1c 69194-7 6.0 % 01/05/2018 %Hba1C Bgs098 Gluc Ave 126 mg/dL 01/05/2018 Cbc With [...] 27.3 % 01/05/2018 Cbc With Differential Ord2 [place]% 10.5 % 01/05/2018 Cbc With Differential Ord2 [...] 1.27 K/ul 01/05/2018 Cbc With Differential Ord2 [place] ABS# 0.5 K/ul 01/05/2018 Cbc With Differential Ord2 Eos ABS# 0.2 K/ul 01/05/2018 Cbc With Differential Ord2 Baso ABS# 0.1 K/ul 01/05/2018 Pt Szu5159 PT 20.7 seconds 01/05/2018 Pt Pup3494 INR 1.8 01/05/2018 Pt Xwy8026 Low Intensity - 1.5-2.0 01/05/2018 Pt Hig3337 Mod intensity - 2.0-3.0 01/05/2018 Pt Dcs6706 Hi intensity - 3.0-4.0 01/05/2018 Tsh Ord6 TSH (3rd IS) 2.34 uIU/mL 01/05/2018 Lipid Ord30 CHOL 156 mg/dL 01/05/2018 Lipid Ord30 HDL 48.0 mg/dl 01/05/2018 Lipid Ord30 TRIG 207 mg/dL 01/05/2018 Lipid Ord30 LDL 67 mg/dL 01/05/2018 Lipid Ord30 C/HDL 3.3 Ratio 01/05/2018 Pt Pwr9149 PT 28.3 seconds 11/26/2017 Pt Hwn9694 INR 2.6 11/26/2017 Pt Ivz0716 Low Intensity - 1.5-2.0 11/26/2017 Pt Atp9934 Mod intensity - 2.0-3.0 11/26/2017 Pt Kbt9901 Hi intensity - 3.0-4.0 11/26/2017 Pt Wwg7720 PT 36.5 seconds 11/19/2017 Pt Rwe1080 INR 3.6 11/19/2017 Pt Lcu6685 Low Intensity - 1.5-2.0 11/19/2017 Pt Txs4988 Mod intensity - 2.0-3.0 11/19/2017 Pt Ook4199 Hi intensity - 3.0-4.0 11/19/2017 Pt Vtz6789 PT 22.9 seconds 10/15/2017 Pt Wvf3673 INR 2.0 10/15/2017 Pt Fhv1779 Low Intensity - 1.5-2.0 10/15/2017 Pt Ddb4142 Mod intensity - 2.0-3.0 10/15/2017 Pt Dwi3197 Hi intensity - 3.0-4.0 10/15/2017 Pt Ijd1761 PT 25.9 seconds 10/01/2017 Pt Gzy1817 INR 2.4 10/01/2017 Pt Ftw0976 Low Intensity - 1.5-2.0 10/01/2017 Pt Opd5274 Mod intensity - 2.0-3.0 10/01/2017 Pt Zne6625 Hi intensity - 3.0-4.0 10/01/2017 Pt Ctu7770 PT 20.6 seconds 09/24/2017 Pt Voc6314 INR 1.8 09/24/2017 Pt Bjt8083 Low Intensity - 1.5-2.0 09/24/2017 Pt Lsc4616 Mod intensity - 2.0-3.0 09/24/2017 Pt Pgq8015 Hi intensity - 3.0-4.0 09/24/2017 Pt Tty1990 PT 21.0 seconds 09/15/2017 Pt Tat7513 INR 1.8 09/15/2017 Pt Xrg6464 Low Intensity - 1.5-2.0 09/15/2017 Pt Wjb2902 Mod intensity - 2.0-3.0 09/15/2017 Pt Ohq8889 Hi intensity - 3.0-4.0 09/15/2017 Pt Hav6705 PT 19.0 seconds 09/03/2017 Pt Uvt2406 INR 1.6 09/03/2017 Pt Ymr8152 Low Intensity - 1.5-2.0 09/03/2017 Pt Hxf6417 Mod intensity - 2.0-3.0 09/03/2017 Pt Bno5651 Hi intensity - 3.0-4.0 09/03/2017 Pt Qrs3907 PT 17.6 seconds 08/23/2017 Pt Cuq4823 INR 1.5 08/23/2017 Pt Yal7555 Low Intensity - 1.5-2.0 08/23/2017 Pt Kdt7270 Mod intensity - 2.0-3.0 08/23/2017 Pt Opq5607 Hi intensity - 3.0-4.0 08/23/2017 Pt Kjc9240 PT 12.7 seconds 08/20/2017 Pt Cof6984 INR 1.0 08/20/2017 Pt Afz9482 Low Intensity - 1.5-2.0 08/20/2017 Pt Vck9459 Mod intensity - 2.0-3.0 08/20/2017 Pt Fyt7198 Hi intensity - 3.0-4.0 08/20/2017 Pt Mfe5755 PT 12.9 seconds 08/17/2017 Pt Ytz0384 INR 1.0 08/17/2017 Pt Npb4528 Low Intensity - 1.5-2.0 08/17/2017 Pt Mpj9333 Mod intensity - 2.0-3.0 08/17/2017 Pt Bgx7150 Hi intensity - 3.0-4.0 08/17/2017 Pt Gca6965 PT 18.5 seconds 08/10/2017 Pt Rmh9747 INR 1.6 08/10/2017 Pt Pqc7025 Low Intensity - 1.5-2.0 08/10/2017 Pt Upo4659 Mod intensity - 2.0-3.0 08/10/2017 Pt Kwq1630 Hi intensity - 3.0-4.0 08/10/2017 Tsh Ord6 [...] 87.8 fl 05/27/2017 Cbc With Differential Ord2 [place]% 8.1 % 05/27/2017 Cbc With Differential Ord2 [...] 1.11 K/ul 05/27/2017 Cbc With Differential Ord2 [place] ABS# 0.6 K/ul 05/27/2017 Cbc With Differential Ord2 Eos ABS# 0.2 K/ul 05/27/2017 Cbc With Differential Ord2 Baso ABS# 0.1 K/ul 05/27/2017 Pt Zzt1368 PT 28.2 seconds 05/27/2017 Pt Jkt0201 INR 2.6 05/27/2017 Pt Qvb5149 Low Intensity - 1.5-2.0 05/27/2017 Pt Jta9084 Mod intensity - 2.0-3.0 05/27/2017 Pt Iig6592 Hi intensity - 3.0-4.0 05/27/2017 Lipid Ord30 CHOL 167 mg/dL 05/27/2017 Lipid Ord30 HDL 49.0 mg/dl 05/27/2017 Lipid Ord30 TRIG 347 mg/dL 05/27/2017 Lipid Ord30 LDL 49 mg/dL 05/27/2017 Lipid Ord30 C/HDL 3.4 Ratio 05/27/2017 Magnesium Ord90 Mag 1.4 mg/dL 05/27/2017 %Hba1C Oih165 % HbA1c 87628-0 5.9 % 05/27/2017 %Hba1C Ppz703 Gluc Ave 123 mg/dL 05/27/2017 Comp Metabolic Nal027 NA 138 mEq/L 05/27/2017 Comp Metabolic Cli386 K 4.1 mEq/L 05/27/2017 Comp Metabolic Ttg590 CL 101 mEq/L 05/27/2017 Comp Metabolic Rwq646 CO2 31.0 mEq/L 05/27/2017 Comp Metabolic See333 AN ION GAP 10 05/27/2017 Comp Metabolic Wak240 GL UCOSE 117 mg/dL 05/27/2017 Comp Metabolic Mnx467 Cr eat 0.9 mg/dL 05/27/2017 Comp Metabolic Tlx439 eG FR 62 ml/min/1.73m2 05/27 Comp Metabolic Lah175 BUN 25 mg/dL 05/27/2017 Comp Metabolic Juy974 B/ C Ratio 26.6 Ratio 05/27/2017 Comp Metabolic Ese468 CA LCIUM 9.5 mg/dL 05/27/2017 Comp Metabolic Zdk330 AL K PHOS 73 U/L 05/27/2017 Comp Metabolic Lqb944 T(SGOT) 18 U/L 05/27/2017 Comp Metabolic Lnr183 AL T(SGPT) 12 U/L 05/27/2017 Comp Metabolic Lzj778 BI LI T 0.5 mg/dL 05/27/2017 Comp Metabolic Qqo260 AL BUMIN 4.1 g/dL 05/27/2017 Comp Metabolic Eeb727 TP RO 7.1 g/dL 05/27/2017 Comp Metabolic Mix609 GL OB 3.0 g/dL 05/27/2017 Comp Metabolic Dcn139 A/ G Ratio 1.3 Ratio 05/27/2017 Comp Metabolic Dqc849 Os mo 281 mOsmo 05/27/2017 Free T4 Nlr164 FREE T4 0.91 ng/dL 05/27/2017 Pt Gvi3725 PT 29.2 seconds 04/16/2017 Pt Ndx2074 INR 2.7 04/16/2017 Pt Svb0204 Low Intensity - 1.5-2.0 04/16/2017 Pt Qck5115 Mod intensity - 2.0-3.0 04/16/2017 Pt Nbt3629 Hi intensity - 3.0-4.0 04/16/2017 Pt Wgt7730 PT 30.7 seconds 03/31/2017 Pt Gop6056 INR 2.9 03/31/2017 Pt Dic1941 Low Intensity - 1.5-2.0 03/31/2017 Pt Vel7858 Mod intensity - 2.0-3.0 03/31/2017 Pt Qxh9784 Hi intensity - 3.0-4.0 03/31/2017 Pt Rwq6441 PT 21.3 seconds 03/26/2017 Pt Kpg8264 INR 1.9 03/26/2017 Pt Uor6941 Low Intensity - 1.5-2.0 03/26/2017 Pt Sdl5151 Mod intensity - 2.0-3.0 03/26/2017 Pt Wja5536 Hi intensity - 3.0-4.0 03/26/2017 Pt Bxp1726 PT 19.8 seconds 03/22/2017 Pt Ekr0456 INR 1.7 03/22/2017 Pt Gxk6680 Low Intensity - 1.5-2.0 03/22/2017 Pt Xrf7592 Mod intensity - 2.0-3.0 03/22/2017 Pt Okc9147 Hi intensity - 3.0-4.0 03/22/2017 Pt Vxz2433 PT 15.6 seconds 03/19/2017 Pt Iji8922 INR 1.3 03/19/2017 Pt Ptl8140 Low Intensity - 1.5-2.0 03/19/2017 Pt Ekk4547 Mod intensity - 2.0-3.0 03/19/2017 Pt Acb6561 Hi intensity - 3.0-4.0 03/19/2017 Pt Qjv1793 PT 13.7 seconds 03/15/2017 Pt Uts4234 INR 1.1 03/15/2017 Pt Dgz8554 Low Intensity - 1.5-2.0 03/15/2017 Pt Nus6520 Mod intensity - 2.0-3.0 03/15/2017 Pt Yvi2081 Hi intensity - 3.0-4.0 03/15/2017 Pt Ztt3220 PT 25.8 seconds 01/28/2017 Pt Cyz4729 INR 2.4 01/28/2017 Pt Knt0899 Low Intensity - 1.5-2.0 01/28/2017 Pt Zga5776 Mod intensity - 2.0-3.0 01/28/2017 Pt Mhj0422 Hi intensity - 3.0-4.0 01/28/2017 %Hba1C Iia927 % HbA1c 20521-2 6.4 % 10/23/2016 %Hba1C Oml790 Gluc Ave 137 mg/dL 10/23/2016 Comp Metabolic Era248 NA 138 mEq/L 10/23/2016 Comp Metabolic Nup043 K 3.4 mEq/L 10/23/2016 Comp Metabolic Pfg955 CL 100 mEq/L 10/23/2016 Comp Metabolic Kho632 CO2 30.0 mEq/L 10/23/2016 Comp Metabolic Rtb253 AN ION GAP 11 10/23/2016 Comp Metabolic Efn063 GL UCOSE 139 mg/dL 10/23/2016 Comp Metabolic Xcn164 Cr eat 0.9 mg/dL 10/23/2016 Comp Metabolic Nfc726 eG FR 62 ml/min/1.73m2 10/23 Comp Metabolic Gog744 BUN 22 mg/dL 10/23/2016 Comp Metabolic Zew180 B/ C Ratio 23.4 Ratio 10/23/2016 Comp Metabolic Big820 CA LCIUM 8.7 mg/dL 10/23/2016 Comp Metabolic Wzr240 AL K PHOS 66 U/L 10/23/2016 Comp Metabolic Sod619 T(SGOT) 20 U/L 10/23/2016 Comp Metabolic Mbg601 AL T(SGPT) 10 U/L 10/23/2016 Comp Metabolic Rnl854 BI LI T 0.5 mg/dL 10/23/2016 Comp Metabolic Wnq420 AL BUMIN 3.5 g/dL 10/23/2016 Comp Metabolic Kox532 TP RO 6.3 g/dL 10/23/2016 Comp Metabolic Gyj694 GL OB 2.8 g/dL 10/23/2016 Comp Metabolic Ufo594 A/ G Ratio 1.3 Ratio 10/23/2016 Comp Metabolic Dxk691 Os mo 281 mOsmo 10/23/2016 Pt Dem5813 PT 26.8 seconds 10/23/2016 Pt Tjz1734 INR 2.7 10/23/2016 Pt Uye9771 Low Intensity - 1.5-2.0 10/23/2016 Pt Whj8983 Mod intensity - 2.0-3.0 10/23/2016 Pt Stt5394 Hi intensity - 3.0-4.0 10/23/2016 Pt Mub5771 PT 28.3 seconds 09/25/2016 Pt Keg2063 INR 2.8 09/25/2016 Pt Jrl7007 Low Intensity - 1.5-2.0 09/25/2016 Pt Ici4963 Mod intensity - 2.0-3.0 09/25/2016 Pt Cdf2309 Hi intensity - 3.0-4.0 09/25/2016 Metabolic Ord15 [...] Metabolic Ord15 CALCIUM 8.8 mg/dL 09/25/2016 Pt Aqy0301 PT 30.6 seconds 09/11/2016 Pt Xwc7999 INR 3.2 09/11/2016 Pt Zpj6356 Low Intensity - 1.5-2.0 09/11/2016 Pt Bpm1817 Mod intensity - 2.0-3.0 09/11/2016 Pt Uqn7326 Hi intensity - 3.0-4.0 09/11/2016 Comp Metabolic Lrt086 NA 138 mEq/L 09/11/2016 Comp Metabolic Bkh442 K 4.4 mEq/L 09/11/2016 Comp Metabolic Qyq642 CL 103 mEq/L 09/11/2016 Comp Metabolic Rzb399 CO2 31.0 mEq/L 09/11/2016 Comp Metabolic Afy478 AN ION GAP 8 09/11/2016 Comp Metabolic Ruu373 GL UCOSE 146 mg/dL 09/11/2016 Comp Metabolic Mgd060 Cr eat 1.0 mg/dL 09/11/2016 Comp Metabolic Hvn831 eG FR 60 ml/min/1.73m2 09/11 Comp Metabolic Hdm469 BUN 16 mg/dL 09/11/2016 Comp Metabolic Oom264 B/ C Ratio 16.5 Ratio 09/11/2016 Comp Metabolic Qhl820 CA LCIUM 8.7 mg/dL 09/11/2016 Comp Metabolic Qfo086 AL K PHOS 52 U/L 09/11/2016 Comp Metabolic Mfa478 T(SGOT) 19 U/L 09/11/2016 Comp Metabolic Fcf833 AL T(SGPT) 11 U/L 09/11/2016 Comp Metabolic Oqd061 BI LI T 0.7 mg/dL 09/11/2016 Comp Metabolic Pzc539 AL BUMIN 3.3 g/dL 09/11/2016 Comp Metabolic Ktn064 TP RO 5.8 g/dL 09/11/2016 Comp Metabolic Nxe713 GL OB 2.5 g/dL 09/11/2016 Comp Metabolic Bmg258 A/ G Ratio 1.3 Ratio 09/11/2016 Comp Metabolic Cpw093 Os mo 280 mOsmo 09/11/2016 C-Reactive Protein Qnt Crqnt CRP 0.1 mg/dl 08/21/2016 Comp Metabolic Zzo155 NA 139 mEq/L 08/21/2016 Comp Metabolic Bkt915 K 4.1 mEq/L 08/21/2016 Comp Metabolic Myr209 CL 102 mEq/L 08/21/2016 Comp Metabolic Laz629 CO2 30.0 mEq/L 08/21/2016 Comp Metabolic Viv561 AN ION GAP 11 08/21/2016 Comp Metabolic Esj357 GL UCOSE 148 mg/dL 08/21/2016 Comp Metabolic Hav016 Cr eat 1.0 mg/dL 08/21/2016 Comp Metabolic Nmd760 eG FR 55 ml/min/1.73m2 08/21 Comp Metabolic Bpy311 BUN 21 mg/dL 08/21/2016 Comp Metabolic Lhd063 B/ C Ratio 20.2 Ratio 08/21/2016 Comp Metabolic Xvc402 CA LCIUM 9.4 mg/dL 08/21/2016 Comp Metabolic Elc874 AL K PHOS 63 U/L 08/21/2016 Comp Metabolic Zuu690 T(SGOT) 23 U/L 08/21/2016 Comp Metabolic Qnf192 AL T(SGPT) 16 U/L 08/21/2016 Comp Metabolic Ytv074 BI LI T 0.6 mg/dL 08/21/2016 Comp Metabolic Nrr188 AL BUMIN 3.9 g/dL 08/21/2016 Comp Metabolic Koq875 TP RO 6.8 g/dL 08/21/2016 Comp Metabolic Ahq605 GL OB 2.9 g/dL 08/21/2016 Comp Metabolic Kyx037 A/ G Ratio 1.4 Ratio 08/21/2016 Comp Metabolic Jwx507 Os mo 283 mOsmo 08/21/2016 Sed Rate Ord21 ESR 16 mm/hr 08/21/2016 Pt Wqp5889 PT 27.2 seconds 08/21/2016 Pt Fbw0437 INR 2.7 08/21/2016 Pt Sqq6903 Low Intensity - 1.5-2.0 08/21/2016 Pt Piy0642 Mod intensity - 2.0-3.0 08/21/2016 Pt Qac1921 Hi intensity - 3.0-4.0 08/21/2016 Magnesium Ord90 Mag 1.9 mg/dL 08/21/2016 Pt Act5924 PT 25.9 seconds 06/17/2016 Pt Qtv0338 INR 2.5 06/17/2016 Pt Fya0918 Low Intensity - 1.5-2.0 06/17/2016 Pt Ujw7663 Mod intensity - 2.0-3.0 06/17/2016 Pt Xhh8746 Hi intensity - 3.0-4.0 06/17/2016 Tsh Ord6 hTSH II 2.13 uIU/mL 06/08/2016 Free T4 Ugl215 FREE T4 0.79 ng/dL 06/08/2016 Cbc With Differential Ord2 WBC 5.75 K/ul 06/08/2016 Cbc With Differential Ord2 RBC 4.59 M/ul 06/08/2016 Cbc With Differential Ord2 HGB 12.3 g/dl 06/08/2016 Cbc With Differential Ord2 Neut% 57.0 % 06/08/2016 Cbc With Differential Ord2 HCT 37.1 % 06/08/2016 Cbc With Differential Ord2 MCV 80.8 fl 06/08/2016 Cbc With Differential Ord2 Lymph% 24.3 % 06/08/2016 Cbc With Differential Ord2 MCH 26.8 pg 06/08/2016 Cbc With Differential Ord2 [place]% 12.0 % 06/08/2016 Cbc With Differential Ord2 [...] 1.40 K/ul 06/08/2016 Cbc With Differential Ord2 [place] ABS# 0.7 K/ul 06/08/2016 Cbc With Differential Ord2 Eos ABS# 0.3 K/ul 06/08/2016 Cbc With Differential Ord2 Baso ABS# 0.1 K/ul 06/08/2016 %Hba1C Grs688 % HbA1c 47497-7 6.2 % 06/08/2016 %Hba1C Ghr989 Gluc Ave 131 mg/dL 06/08/2016 Comp Metabolic Qgm557 NA 138 mEq/L 06/08/2016 Comp Metabolic Vhm072 K 3.9 mEq/L 06/08/2016 Comp Metabolic Eti369 CL 105 mEq/L 06/08/2016 Comp Metabolic Ppi718 CO2 27.0 mEq/L 06/08/2016 Comp Metabolic Cvx689 AN ION GAP 10 06/08/2016 Comp Metabolic Ouf391 GL UCOSE 127 mg/dL 06/08/2016 Comp Metabolic Ggg138 Cr eat 1.0 mg/dL 06/08/2016 Comp Metabolic Scr841 eG FR 59 ml/min/1.73m2 06/08 Comp Metabolic Bvx567 BUN 19 mg/dL 06/08/2016 Comp Metabolic Gsk798 B/ C Ratio 19.4 Ratio 06/08/2016 Comp Metabolic Yxx535 CA LCIUM 9.2 mg/dL 06/08/2016 Comp Metabolic Gib591 AL K PHOS 77 U/L 06/08/2016 Comp Metabolic Yam841 T(SGOT) 19 U/L 06/08/2016 Comp Metabolic Xim955 AL T(SGPT) 13 U/L 06/08/2016 Comp Metabolic Rhx011 BI LI T 0.5 mg/dL 06/08/2016 Comp Metabolic Unn083 AL BUMIN 3.8 g/dL 06/08/2016 Comp Metabolic Qbw653 TP RO 6.6 g/dL 06/08/2016 Comp Metabolic Ppi322 GL OB 2.8 g/dL 06/08/2016 Comp Metabolic Zsm242 A/ G Ratio 1.4 Ratio 06/08/2016 Comp Metabolic Zvh778 Os mo 280 mOsmo 06/08/2016 Pt Phm4724 PT 36.1 seconds 06/08/2016 Pt Rkp9380 INR 3.9 06/08/2016 Pt Lwp1408 Low Intensity - 1.5-2.0 06/08/2016 Pt Ryy5379 Mod intensity - 2.0-3.0 06/08/2016 Pt Afy4905 Hi intensity - 3.0-4.0 06/08/2016 Lipid Ord30 CHOL 149 mg/dL 06/08/2016 Lipid Ord30 HDL 46.0 mg/dl 06/08/2016 Lipid Ord30 TRIG 279 mg/dL 06/08/2016 Lipid Ord30 LDL 47 mg/dL 06/08/2016 Lipid Ord30 C/HDL 3.2 Ratio 06/08/2016 Pt Qps3646 PT 30.9 seconds 02/12/2016 Pt Gqs8592 INR 3.2 02/12/2016 Pt Esg4798 Low Intensity - 1.5-2.0 02/12/2016 Pt Urc4726 Mod intensity - 2.0-3.0 02/12/2016 Pt Duu3864 Hi intensity - 3.0-4.0 02/12/2016 Free T4 Rdt990 FREE T4 1.24 ng/dL 09/27/2015 %Hba1C Hmx390 % HbA1c 21741-2 6.4 % 09/27/2015 %Hba1C Irr372 Gluc Ave 137 mg/dL 09/27/2015 Tsh Ord6 hTSH II 0.37 uIU/mL 09/27/2015 Pt Zdj1187 PT 26.2 seconds 09/27/2015 Pt Qbz2976 INR 2.5 09/27/2015 Pt Mth1850 Low Intensity - 1.5-2.0 09/27/2015 Pt Zkt9061 Mod intensity - 2.0-3.0 09/27/2015 Pt Kqd2404 Hi intensity - 3.0-4.0 09/27/2015 Pt Ezq9813 PT 27.6 seconds 2015 Pt Usa9588 INR 2.7 2015 Pt Hta3604 Low Intensity - 1.5-2.0 2015 Pt Fdb6212 Mod intensity - 2.0-3.0 2015 Pt Ksl1813 Hi intensity - 3.0-4.0 2015 %Hba1C Ayg522 % HbA1c 28635-3 6.1 % 06/11/2015 %Hba1C Ike725 Gluc Ave 128 mg/dL 06/11/2015 Cbc With [...] Ord2 RDW 15.8 % 06/10/2015 Comp Metabolic Xkk428 NA 139 mEq/L 06/10/2015 Comp Metabolic Pdn201 K 4.1 mEq/L 06/10/2015 Comp Metabolic Pku340 CL 105 mEq/L 06/10/2015 Comp Metabolic Ljn755 CO2 27.0 mEq/L 06/10/2015 Comp Metabolic Vdk408 AN ION GAP 11 06/10/2015 Comp Metabolic Iup969 GL UCOSE 127 mg/dL 06/10/2015 Comp Metabolic Mqk859 Cr eat 1.0 mg/dL 06/10/2015 Comp Metabolic Zea586 eG FR 59 ml/min/1.73m2 06/10 Comp Metabolic Int875 BUN 21 mg/dL 06/10/2015 Comp Metabolic Ffq771 B/ C Ratio 21.2 Ratio 06/10/2015 Comp Metabolic Vtf745 CA LCIUM 9.2 mg/dL 06/10/2015 Comp Metabolic Tuq045 AL K PHOS 87 U/L 06/10/2015 Comp Metabolic Onu449 T(SGOT) 20 U/L 06/10/2015 Comp Metabolic Rwa082 AL T(SGPT) 17 U/L 06/10/2015 Comp Metabolic Wgo663 BI LI T 0.4 mg/dL 06/10/2015 Comp Metabolic Kip877 AL BUMIN 4.1 g/dL 06/10/2015 Comp Metabolic Nbv139 TP RO 7.2 g/dL 06/10/2015 Comp Metabolic Gvk692 GL OB 3.1 g/dL 06/10/2015 Comp Metabolic Etu182 A/ G Ratio 1.3 Ratio 06/10/2015 Comp Metabolic Spt110 Os mo 282 mOsmo 06/10/2015 Tsh Ord6 hTSH II 0.86 uIU/mL 06/10/2015 Lipid Ord30 CHOL 161 mg/dL 06/10/2015 Lipid Ord30 HDL 49.0 mg/dl 06/10/2015 Lipid Ord30 TRIG 208 mg/dL 06/10/2015 Lipid Ord30 LDL 70 mg/dL 06/10/2015 Lipid Ord30 C/HDL 3.3 Ratio 06/10/2015 Pt Vkr6849 PT 25.0 seconds 04/09/2015 Pt Jtg7871 INR 2.4 04/09/2015 Pt Leq3163 Low Intensity - 1.5-2.0 04/09/2015 Pt Zes8240 Mod intensity - 2.0-3.0 04/09/2015 Pt Tcw9752 Hi intensity - 3.0-4.0 04/09/2015 Free T4 Ywo370 FREE T4 1.05 ng/dL 01/22/2015 Pt Cmw5522 PT 27.2 seconds 01/22/2015 Pt Xiu8849 INR 2.6 01/22/2015 Pt Qhr9047 Low Intensity - 1.5-2.0 01/22/2015 Pt Jtn8250 Mod intensity - 2.0-3.0 01/22/2015 Pt Qha6446 Hi intensity - 3.0-4.0 01/22/2015 Cbc With [...] Differential Ord2 RDW 15.2 % 01/22/2015 B12 Sfm744 B12 402.00 pg/ml 01/22/2015 Tsh Ord6 hTSH II 0.65 uIU/mL 01/22/2015 Lipid Ord30 CHOL 166 mg/dL 01/22/2015 Lipid Ord30 HDL 48.0 mg/dl 01/22/2015 Lipid Ord30 TRIG 264 mg/dL 01/22/2015 Lipid Ord30 LDL 65 mg/dL 01/22/2015 Lipid Ord30 C/HDL 3.5 Ratio 01/22/2015 Comp Metabolic Pez726 NA 138 mEq/L 01/22/2015 Comp Metabolic Nbb777 K 4.1 mEq/L 01/22/2015 Comp Metabolic Ruk795 CL 104 mEq/L 01/22/2015 Comp Metabolic Tez760 CO2 29.0 mEq/L 01/22/2015 Comp Metabolic Sfi353 AN ION GAP 9 01/22/2015 Comp Metabolic Khg842 GL UCOSE 106 mg/dL 01/22/2015 Comp Metabolic Exd781 Cr eat 0.9 mg/dL 01/22/2015 Comp Metabolic Lpd624 eG FR 63 ml/min/1.73m2 01/22 Comp Metabolic Aql571 BUN 21 mg/dL 01/22/2015 Comp Metabolic Bye758 B/ C Ratio 22.3 Ratio 01/22/2015 Comp Metabolic Qwo372 CA LCIUM 9.4 mg/dL 01/22/2015 Comp Metabolic Vkt644 AL K PHOS 83 U/L 01/22/2015 Comp Metabolic Yvu499 T(SGOT) 23 U/L 01/22/2015 Comp Metabolic Fyx825 AL T(SGPT) 18 U/L 01/22/2015 Comp Metabolic Pgh947 BI LI T 0.8 mg/dL 01/22/2015 Comp Metabolic Ais539 AL BUMIN 4.2 g/dL 01/22/2015 Comp Metabolic Cyc548 TP RO 7.3 g/dL 01/22/2015 Comp Metabolic Ncz149 GL OB 3.1 g/dL 01/22/2015 Comp Metabolic Ocw081 A/ G Ratio 1.4 Ratio 01/22/2015 Comp Metabolic Qwd794 Os mo 279 mOsmo 01/22/2015 Review of [...] 01/22/2015 Gastrointestinal abdominal pain 01/22/2015 Psychiatric anxiety /09/2014 Gastrointestinal gastroesophageal reflux 01/22/2015 Eyes No blindness [...] Date URINALYSIS NONAUTO W /O SCOPE CPT-4: 65549 03/05/2017 Vital Signs Date Vital 04/14/2018 Blood Pressure 1: 116/78 Code: 8480-6 BMI: 41.6 Code: 85308-9 Heart Rate 1: 72 bpm Height: 5'1" SpO2: 98% Weight: 220 lbs 01/18/2018 Blood Pressure 1: 132/74 Code: 8480-6 BMI: 43.5 Code: 64382-6 Heart Rate 1: 70 bpm Height: 5'1" SpO2: 97% Weight: 230 lbs 01/04/2018 Blood Pressure 1: 134/76 Code: 8480-6 BMI: 42.7 Code: 54274-5 Heart Rate 1: 83 bpm Height: 5'1" SpO2: 98% Weight: 226 lbs 09/23/2017 Blood Pressure 1: 124/76 Code: 8480-6 BMI: 42.3 Code: 97544-7 Heart Rate 1: 94 bpm Height: 5'1" SpO2: 96% Weight: 224 lbs 05/27/2017 Blood Pressure 1: 146/78 Code: 8480-6 BMI: 41.4 Code: 07391-2 Heart Rate 1: 85 bpm Height: 5'1" SpO2: 98% Weight: 219 lbs 02/24/2017 Blood Pressure 1: 138/66 Code: 8480-6 BMI: 41.4 Code: 15677-8 Heart Rate 1: 78 bpm Height: 5'1" SpO2: 97% Weight: 219 lbs 11/02/2016 Blood Pressure 1: 144/72 Code: 8480-6 BMI: 46.1 Code: 38020-6 Heart Rate 1: 78 bpm Height: 5'1" SpO2: 98% Weight: 244 lbs 09/30/2016 Blood Pressure 1: 130/76 Code: 8480-6 BMI: 45.0 Code: 45751-1 Heart Rate 1: 86 bpm Height: 5'1" SpO2: 98% Weight: 238 lbs 09/10/2016 Blood Pressure 1: 136/68 Code: 8480-6 BMI: 46.3 Code: 23087-0 Heart Rate 1: 83 bpm Height: 5'1" SpO2: 98% Weight: 245 lbs 08/20/2016 Blood Pressure 1: 142/78 Code: 8480-6 BMI: 45.3 Code: 76387-4 Heart Rate 1: 84 bpm Height: 5'1" SpO2: 99% Weight: 240 lbs 06/08/2016 Blood Pressure 1: 134/76 Code: 8480-6 BMI: 44.2 Code: 82267-7 Heart Rate 1: 86 bpm Height: 5'1" SpO2: 96% Weight: 234 lbs 04/02/2016 Blood Pressure 1: 142/70 Code: 8480-6 BMI: 44.6 Code: 55606-1 Heart Rate 1: 78 bpm Height: 5'1" SpO2: 97% Weight: 236 lbs 01/14/2016 Blood Pressure 1: 146/72 Code: 8480-6 BMI: 44.2 Code: 14287-7 Heart Rate 1: 86 bpm Height: 5'1" SpO2: 96% Weight: 234 lbs 10/02/2015 Blood Pressure 1: 158/76 Code: 8480-6 BMI: 44.2 Code: 31292-8 Heart Rate 1: 67 bpm Height: 5'1" SpO2: 97% Weight: 234 lbs 07/15/2015 Blood Pressure 1: 148/78 Code: 8480-6 Blood Pressure 1: 200/90 Code: 8480-6 BMI: 44.0 Code: 39639-9 Heart Rate 1: 89 bpm Height: 5'1" SpO2: 97% Weight: 233 lbs 06/10/2015 Blood Pressure 1: 140/82 Code: 8480-6 BMI: 44.0 Code: 20891-2 Heart Rate 1: 78 bpm Height: 5'1" [...] int ermittent 01/04/2018 None hypertension Quality kenji benral hypertension 01/04/2018 None hypertension Onset and Resolution [...] wearing crocs and there was a new chinese on the floor: her foot didn't move [...] Encounters Encounter Performer Loca tion Codes Date ([id number]) [id number] EST. P ATIENT, LEVEL IV Diagnosis: Essential (primary) hypertension[ICD10: I10] Diagnosis: Hypothyroidism, unspecified[ICD10: E03.9] Diagnosis: Impaired fasting glucose[ICD10: R73.01] Diagnosis: superintendent terminal (current) use of anticoagulants[ICD10: Z79.01] Edna Almanza MD, [facility] CPT-4: 07695 04/14/2018 ([id number]) 75101 EST. P ATIENT, LEVEL III Diagnosis: Localized edema[ICD10: R60.0] Diagnosis: Gastro-esophageal reflux disease without esophagitis[ICD10: K21.9] Edna Almanza MD, [facility] CPT-4: 52712 01/18/2018 ([id number]) 80922 EST. P ATIENT, LEVEL IV Diagnosis: Gastro-esophageal reflux disease without esophagitis[ICD10: K21.9] Diagnosis: Localized edema[ICD10: R60.0] Diagnosis: Essential (primary) hypertension[ICD10: I10] Diagnosis: Hypothyroidism, unspecified[ICD10: E03.9] Diagnosis: Impaired fasting glucose[ICD10: R73.01] Edna Almanza MD, [facility] CPT-4: 01757 01/04/2018 ([id number]) 38207 EST. 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 PATIENT, LEVEL III Diagnosis: Pain in right hip[ICD10: M25.551] Nata Almanza MD, [facility] CPT-4: 13462 02/24/2017 ([id number]) 27354 EST. P ATIENT, LEVEL IV Diagnosis: Essential (primary) hypertension[ICD10: I10] Diagnosis: Localized edema[ICD10: R60.0] Diagnosis: Pain in right hip[ICD10: M25.551] Sarai Almanza MD, [facility] CPT-4: 98058 11/02/2016 ([id number]) 21034 EST. P ATIENT, LEVEL IV Diagnosis: Essential (primary) hypertension[ICD10: I10] Diagnosis: Localized edema[ICD10: R60.0] Sarai Almanza MD, [facility] CPT-4: 86277 09/30/2016 [id number] EST. PATIENT, LEVEL IV Diagnosis: Localized edema[ICD10: R60.0] Diagnosis: Pain in joints of left hand[ICD10: M25.542] Diagnosis: Pain in joints of right hand[ICD10: M25.541] Nata Almanza MD, [facility] CPT-4: 19108 09/10/2016 08738 EST. PATIENT, LEVEL IV Diagnosis: Localized edema[ICD10: R60.0] Diagnosis: Pain in joints of left hand[ICD10: M25.542] Diagnosis: Pain in joints of right hand[ICD10: M25.541] Diagnosis: Other fatigue[ICD10: R53.83] Nata Almanza MD, [facility] CPT-4: 46473 08/20/2016 [id number] EST. PATIENT, LEVEL IV Diagnosis: Essential (primary) hypertension[ICD10: I10] Diagnosis: Other intermediate manager (current) drug therapy[ICD10: Z79.899] Diagnosis: Tinnitus, bilateral[ICD10: H93.13] Nata Almanza MD, [facility] CPT-4: 22040 06/08/2016 [id number] EST. PATIENT, LEVEL IV Diagnosis: Other allergic rhinitis[ICD10: J30.89] Diagnosis: Acute laryngopharyngitis[ICD10: J06.0] Nata Almanza MD, [facility] CPT-4: 11196 04/02/2016 [id number] EST. PATIENT, LEVEL IV Diagnosis: Left upper quadrant pain[ICD10: R10.12] Nata Almanza MD, [facility] CPT-4: 42659 01/14/2016 [id number] EST. PATIENT, LEVEL IV Diagnosis: Pain in left shoulder[ICD10: M25.512] Diagnosis: Body mass index (BMI) 40.0-44.9, adult[ICD10: Z68.41] [facility] CPT-4: 72635 10/02/2015 [id number] EST. 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 EMYO-nxzmmzhj-ettvnjzk prilosec BID and carafate QID -discussed low spice, low acidic diet 01/18/2018 Appointment: Edna Douglas WPtel: [phone] [phone] (15 min) Moderate 01/18/2018 Patient Education: Patient [...] of control. 01/04/2018 Appointment: [phone] [place] (30 min) Complex 01/04/2018 Patient Education: Patient Medication Summary Completed 01/04/2018 Care Plan: SCREENINGMAMMOGRAPHYDIGITAL LOINC : 97819-3 Pending 01/04/2018 Visit Plan: Abdominal hernia - not able to be taken to surgery by local providers and pt has been seen at [facility] and that surgeon felt like Kat [...] home. 09/23/2017 Appointment: [phone] [place] (15 min) Moderate 09/23/2017 [...] medications. 05/27/2017 Appointment: Ed[facility] Douglas [facility]el[phone] [phone] (30 min) Complex 05/27/2017 Patient Education: Patient [...] Dr. Palacios. 02/24/2017 Appointment: Nata Hsu WPtel: [phone] [place] [place] (30 min) Complex 02/24/2017 Patient Education: [...] Chaney. 11/02/2016 Appointment: Sarai Almanza WPtel: [phone] [facility] (15 min) Moderate 11/02/2016 Patient Education: [...] peripheral edema. 09/30/2016 Appointment: Sarai Almanza WPtel: [facility] (15 min) Moderate 09/30/2016 Patient Education: Patient [...] Hsu WPtel: [phone] [facility] (30 min) [...] edema. 08/20/2016 Appointment: Nata Hsu WPtel: [phone] (30 min) Complex 08/20/2016 Patient Education: Patient Medication Summary Completed 08/20/2016 Referral: Otf Lee [address] Referral Initiated 07/02/2016 Visit Plan: Chronic [...] 06/08/2016 Care Plan: Referral Order SNOMED-CT : [id number] Pending 06/08/2016 Visit Plan: URI - Pt [...] Hsu WPtel: [phone] [id number] (30 min) Complex 04/02/2016 Patient Education: [...] acute pain 01/14/2016 Appointment: Edna Douglas WPtel: [facility] [phone] [place] (30 min) Complex 01/14/2016 Patient Education: Patient Medication Summary Completed 01/14/2016 Patient Education: Obesity Completed 01/14/2016 Care Plan: BMI Above normal followup DAVID F-MGMT EDUC & TRAIN 1 PT Pending 10/24/2015 Care Plan: X-RAY EXAM OF SHOULDER LOINC : 30054-3 Pending 10/24/2015 Visit Plan: Left shoulder pain [...] weight check. 10/02/2015 Appointment: Edna Douglas WPtel: [facility] [phone] [place] (15 min) Moderate 10/02/2015 Patient Education: [...] ses Completed 06/10/2015 Appointment: Sarai Almanza WPtel: [address] [place], [place] [address] (15 min) Moderate 04/22/2015 Visit Plan: Hypertension [...] to medications. 01/22/2015 Appointment: Sarai Almanza WPtel: [facility] [place] ([place] New Patient 01/22/2015 Patient Education: Patient Medication Summary Completed 01/22/2015 Patient Education: Hypertension Completed 01/22/2015 [facility] [facility] Initiated Instructions Comment . URI - [...] and pt has been seen at [facility] and that surgeon felt like Kat would be better served by Dr. Betancur at [facility]. I have recommended a referral to dr. [...] may need injection from dr. Chaney. . Edema - pt has bee n [...] to further attempt to reduce peripheral edema. JSDR-rmejwqlq-uwbxnkpj prilosec BID and carafate QID -discussed low [...]
--- OUTSIDE RECORDS SUMMARY | 2020-01-16 23:59 | XMS REPORT | CCD ---
Author Author Kat Almanza Organization Sarai Almanza MD, [facility] Address [address] [place] [address] Phone Care Team Providers Care Renal Technician Name Role Phone PP Unavailable CCM Unavailable Summary Purpose Interface Exchange Insurance Providers Payer name Policy type / Coverage type Covered republican ID Effective Begin Date Effective End Date WPS Medicare Part B Medicare Part B [id number] 2017 Unknown [employer] [place] Medicare Part B [id number] 2017 Unknown Family history Father Diagnosis Age At Onset Hyperlipidemia Unknown Heart Attack Unknown Mother Diagnosis Age At Onset Arthritis Unknown Social History Social History Element Codes Description Effective Dates Marital status Unknown M arried Nathan 09/30/2016 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 Number of children Unknown 3 01/22/[address]: 568574471 Never smoker 01/22/[address]: 620971114 Never drinks alcohol 01/22/2015 Allergies, Adverse Reactions, [...] ICD-9: 790.21 ICD-10: R73.01 Active 05/27/2017 Unknown shelter (current) use of anticoagulants ICD-9: V58.61 ICD-10: [...] 780.79 ICD-10: R53.83 Active 08/20/2016 Unknown 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 04/18/2018 10/14/2018 Ac tive Generic For:ZYLOPRIM 300 MG TABLET 03/22 9:13:47 AM Lasix 20 mg tablet RxNorm: 335325 TAKE ONE TABLET BY MOUTH DAILY 04/18/2018 08/15/2018 Ac tive Generic For:LASIX 20MG 04/18/2018 9:13: 50 AM Carafate 1 gram tablet RxNorm: 034507 TAKE ONE TABLET BY MOUTH BEFORE MEALS AN D AT BEDTIME 04/18/2018 05/29/2018 Active Generic For:CARAFATE 1GM 9:32:51 AM Coumadin 5 mg tablet RxNorm: 235060 TAKE 1 TABLET BY MOUTH DIRECTED 03/21/2018 09/16/2018 Ac tive Generic For:COUMADIN 5MG TAB 03/21/2018 9:13:00 AM Carafate 1 gram tablet RxNorm: 855396 TAKE ONE TABLET BY MOUTH BEFORE MEALS AN D AT BEDTIME 03/21/2018 04/17/2018 Inactive Generic For:CARAFATE 1GM 1 9:14:24 AM Carafate 1 gram tablet RxNorm: 500969 1 Tablet(s) PO AC & HS 02/17/2018 03/20/2018 Inactive atenolol 100 mg tablet RxNorm: 466423 1 Tablet(s) PO daily 02/04/2018 09/01/2018 Active atenolol 50 mg tablet RxNorm: 110042 1 Tablet(s) PO daily 02/03/2018 02/03/2018 Inactive omeprazole 20 mg cap sean,delayed release RxNorm: 756078 1 Capsule(s) BID 01/21/2018 01/15/2019 Ac tive Generic For:PRILOSEC 20MG 07/22/2017 8:5 8:20 AM Carafate 1 gram tablet RxNorm: 702325 1 Tablet(s) PO AC & HS 01/21/2018 02/16/2018 Inactive Carafate 1 gram tablet RxNorm: 447084 1 Tablet(s) PO AC & HS TAKE ONE TABLET B Y MOUTH TWICE DAILY 01/18/2018 02/14/2018 Inactive Generic For:CARAFATE 1GM 0 12/20/2017 9:10:56 AM Carafate 1 gram tablet RxNorm: 032468 1 Tablet(s) PO AC & HS 01/18/2018 01/20/2018 Inactive Carafate 1 gram tablet RxNorm: 088890 1 Tablet(s) PO AC & HS 01/18/2018 02/27/2018 Inactive omeprazole 20 mg cap sean,delayed release RxNorm: 209160 Capsule(s) TAKE 1 CAP SEAN BY MOUTH EVERY DAY 01/17/2018 01/20/2018 Inactive Generic For:PRILOSEC 20MG 0 07/22/2017 8:58:20 AM omeprazole 20 mg cap sean,delayed release RxNorm: 413463 Capsule(s) TAKE 1 CAP SEAN BY MOUTH EVERY DAY 01/14/2018 01/16/2018 Inactive Generic For:PRILOSEC 20MG 07/22/2017 8:58:20 AM clonazepam 0.5 mg ta blet RxNorm: 754702 1 Tablet(s) PO BID 01/07/2018 06/05/2018 Active Plavix 75 mg tablet RxNorm: 282808 1 Tablet(s) PO daily 01/07/2018 07/05/2018 Active Carafate 1 gram tablet RxNorm: 987319 1 Tablet(s) PO AC & HS 01/04/2018 01/17/2018 Inactive sodium bicarbonate 6 50 mg tablet RxNorm: 640791 TAKE 2 TABLETS BY JAVON TH TWICE DAILY 12/20/2017 06/17/2018 Ac tive 12/20/2017 9:10:59 AM Lasix 20 mg tablet RxNorm: 905191 TAKE ONE TABLET BY MOUTH DAILY 12/20/2017 04/17/2018 In active Generic For:LASIX 20MG 12/20/2017 9:11: 03 AM Carafate 1 gram tablet RxNorm: 659945 TAKE ONE TABLET BY MOUTH TWICE DAILY 12/20/2017 01/17/2018 In active Generic For:CARAFATE 1GM 12/20/2017 9:1 0:56 AM Synthroid 137 mcg ta blet RxNorm: 468835 TAKE 1 TABLET BY MOUT H ONCE DAILY 11/19/2017 05/17/2018 Ac tive Generic For:SYNTHROID 137MCG TAB 2017 8:58:04 AM Detrol LA 4 mg capsu le,extended release RxNorm: 152796 TAKE 1 CAPSULE BY JAVON TH ONCE DAILY 10/20/2017 04/13/2018 Inactive Generic For:DETROL LA 4MG C AP 10/20/2017 9:01:56 AM allopurinol 300 mg t ablet RxNorm: 908609 TAKE 1 TABLET BY MOUT H ONCE DAILY. 10/20/2017 04/17/2018 In active Generic For:ZYLOPRIM 300 MG TABLET 07/2017 9:01:59 AM Coumadin 5 mg tablet RxNorm: 293755 1 Tablet(s) PO UD 10/01/2017 03/20/2018 Inactive cyclobenzaprine 5 mg tablet RxNorm: 000520 1 Tablet(s) PO TID as needed myscle spasm 09/23/2017 10/12/2017 Inactive Lipitor 40 mg tablet RxNorm: 333974 TAKE 1 TABLET BY MOUTH ONCE DAILY 09/20/2017 09/14/2018 Ac tive Generic For:LIPITOR 40MG 09/20/2017 8:5 6:04 AM atenolol 100 mg tablet RxNorm: 278666 1 Tablet(s) PO daily 08/30/2017 02/03/2018 Inactive atenolol 50 mg tablet RxNorm: 180262 1 Tablet(s) PO daily 08/30/2017 08/30/2017 Inactive Lovenox 30 mg/0.3 mL subcutaneous syringe RxNorm: 539839 0.3 Milliliter(s) SQ Q12H 08/24/2017 09/06/2017 In active Lasix 20 mg tablet RxNorm: 636855 TAKE ONE TABLET BY MOUTH DAILY 08/23/2017 12/19/2017 In active Generic For:LASIX 20MG 08/21/2017 9:04: 27 AM Synthroid 137 mcg ta blet RxNorm: 057407 TAKE 1 TABLET BY MOUT H ONCE DAILY 08/23/2017 11/18/2017 In active Generic For:SYNTHROID 137MCG TAB 2017 9:04:30 AM Lovenox 30 mg/0.3 mL subcutaneous syringe RxNorm: 132932 0.3 Milliliter(s) SQ Q12H 08/10/2017 08/23/2017 In active clonazepam 0.5 mg ta blet RxNorm: 896219 1 Tablet(s) PO BID 08/04/2017 12/30/2017 Inactive Coumadin 4 mg tablet RxNorm: 239520 TAKE 1 TABLET BY MOUTH THREE TIMES PER W MU[place]HOOT (WEDNESDAY, WEDNESDAY AND WEDNESDAY) 07/22/2017 02/16/2018 Inactive Generic For:COUMADIN 4MG 07/22/2017 8:58:26 AM Coumadin 4 mg tablet RxNorm: 858468 TAKE 1 TABLET BY MOUTH THREE TIMES PER W MU[place]HO[place] (WEDNESDAY, WEDNESDAY AND WEDNESDAY) 07/22/2017 02/16/2018 Inactive Generic For:COUMADIN 4MG 07/22/2017 8:58:26 AM omeprazole 20 mg cap sean,delayed release RxNorm: 802884 TAKE 1 CAPSULE BY JAVON TH EVERY DAY 07/22/2017 01/13/2018 Inactive Generic For:PRILOSEC 20MG 07/22/2017 8: 58:20 AM venlafaxine ER 75 mg capsule,extended release 24 hr RxNorm: 126434 TAKE 1 CAPSULE BY MOUTH ONCE DAILY 06/22/2017 06/16/2018 Active Generic For:*EFFEXOR XR 75MG 06/19/2017 12:23:45 PM sodium bicarbonate 6 50 mg tablet RxNorm: 098134 TAKE 2 TABLETS BY JAVON TH TWICE DAILY 06/22/2017 12/18/2017 In active 06/19/2017 12:23:30 PM Coumadin 5 mg tablet RxNorm: 139348 1 Tablet(s) PO UD 06/01/2017 09/30/2017 Inactive Keflex 500 mg capsule RxNorm: 378976 1 Capsule(s) PO TID 05/27/2017 06/02/2017 Inactive spironolactone 25 mg tablet RxNorm: 233464 1 Tablet(s) PO daily 05/24/2017 05/18/2018 Active Synthroid 137 mcg ta blet RxNorm: 761991 TAKE 1 TABLET BY MOUT H ONCE DAILY 05/24/2017 08/21/2017 In active Generic For:SYNTHROID 137MCG TAB 2016 8:55:59 AM Carafate 1 gram tablet RxNorm: 422386 TAKE ONE TABLET BY MOUTH TWICE DAILY 05/24/2017 12/19/2017 In active Generic For:CARAFATE 1GM 05/24/2017 8:5 5:54 AM Detrol LA 4 mg capsu le,extended release RxNorm: 171066 1 Capsule(s) PO daily TAKE 1 CAPSULE BY MOUTH ONCE DAILY 05/10/2017 10/19/2017 Inactive Generic For:DETROL LA 4MG CAP 02/19/2017 2:36:00 PM Lasix 20 mg tablet RxNorm: 048328 TAKE ONE TABLET BY MOUTH DAILY 04/23/2017 08/20/2017 In active Generic For:LASIX 20MG 04/23/2017 9:04: 01 AM Coumadin 4 mg tablet RxNorm: 410829 TAKE 1 TABLET BY MOUTH THREE TIMES PER [place] (WEDNESDAY, WEDNESDAY AND WEDNESDAY) 04/23/2017 07/21/2017 Inactive Generic For:COUMADIN 4MG 04/23/2017 9:04:05 AM allopurinol 300 mg t ablet RxNorm: 947296 TAKE 1 TABLET BY MOUT H ONCE DAILY. 04/23/2017 10/19/2017 In active Generic For:ZYLOPRIM 300 MG TABLET 08/2016 9:03:57 AM potassium chloride 2 0 mEq/15 mL oral liquid RxNorm: 646081 Milliliter(s) 30 Milliliter(s) (40mEq) PO daily 03/24/2017 07/21/2017 Inactive Lovenox 30 mg/0.3 mL subcutaneous syringe RxNorm: 489002 0.3 Milliliter(s) SQ Q12H 03/22/2017 03/26/2017 In active Lovenox 30 mg/0.3 mL subcutaneous syringe RxNorm: 043298 0.3 Milliliter(s) SQ Q12H 03/19/2017 03/20/2017 In active Lovenox 30 mg/0.3 mL subcutaneous syringe RxNorm: 282767 0.3 Milliliter(s) SQ Q12H 03/16/2017 03/18/2017 In active clonazepam 0.5 mg ta blet RxNorm: 537072 1 Tablet(s) PO BID 03/02/2017 07/28/2017 Inactive Lovenox 30 mg/0.3 mL subcutaneous syringe RxNorm: 761352 1 injection SQ BID do NOT take the night time dose the day before surgery, or the morning dose the day of surgery 03/01/2017 03/07/2017 Inactive Lovenox 30 mg/0.3 mL subcutaneous syringe RxNorm: 479879 1 injection SQ BID 03/01/2017 02/28/2017 In active Detrol LA 4 mg capsu le,extended release RxNorm: 532659 TAKE 1 CAPSULE BY JAVON TH ONCE DAILY 02/19/2017 05/09/2017 Inactive Generic For:DETROL LA 4MG C AP 02/19/2017 2:36:00 PM hydrocodone 5 mg-humberto taminophen 325 mg tablet RxNorm: 164796 1-2 Tablet(s) PO Q6 P RN 02/04/2017 No Stop Date Active Zetia 10 mg tablet RxNorm: 960025 TAKE 1 TABLET BY MOUTH DAILY 01/25/2017 04/13/2018 Inactive 01/23/2017 9:03:48 AM omeprazole 20 mg cap sean,delayed release RxNorm: 285674 TAKE 1 CAPSULE BY JAVON TH EVERY DAY 01/25/2017 07/21/2017 Inactive Generic For:PRILOSEC 20MG 01/23/2017 9: 03:45 AM Coumadin 4 mg tablet RxNorm: 257368 TAKE 1 TABLET BY MOUTH THREE TIMES PER [place] (WEDNESDAY, WEDNESDAY AND WEDNESDAY) 01/25/2017 04/22/2017 Inactive Generic For:COUMADIN 4MG 01/23/2017 9:03:51 AM sodium bicarbonate 6 50 mg tablet RxNorm: 746963 TAKE 2 TABLETS BY JAVON TH TWICE DAILY 12/24/2016 06/21/2017 In active 12/24/2016 9:09:27 AM Lasix 20 mg tablet RxNorm: 260540 1 Tablet(s) PO daily 12/24/2016 04/22/2017 Inactive Synthroid 137 mcg ta blet RxNorm: 662314 TAKE 1 TABLET BY MOUT H ONCE DAILY 11/24/2016 05/22/2017 In active Generic For:SYNTHROID 137MCG TAB 2016 9:04:37 AM Coumadin 4 mg tablet RxNorm: 416926 TAKE 1 TABLET BY MOUTH THREE TIMES PER [place] (WEDNESDAY, WEDNESDAY AND WEDNESDAY) 11/24/2016 01/22/2017 Inactive Generic For:COUMADIN 4MG 11/24/2016 9:04:41 AM hydrocodone 5 mg-humberto taminophen 325 mg tablet RxNorm: 244825 1-2 Tablet(s) PO Q6 P RN 11/17/2016 02/03/2017 In active Carafate 1 gram tablet RxNorm: 958097 TAKE ONE TABLET BY MOUTH TWICE DAILY 10/27/2016 05/23/2017 In active Generic For:CARAFATE 1GM 10/26/2016 8:3 9:42 AM allopurinol 300 mg t ablet RxNorm: 223249 Tablet(s) TAKE 1 TABL ET BY MOUTH ONCE DAILY. 10/26/2016 04/22/2017 Inactive Lipitor 40 mg tablet RxNorm: 805837 1 Tablet(s) PO daily 09/25/2016 09/19/2017 Inactive Coumadin 4 mg tablet RxNorm: 030739 TAKE 1 TABLET BY MOUTH THREE TIMES PER [place] (WEDNESDAY, WEDNESDAY AND WEDNESDAY) 09/25/2016 11/23/2016 Inactive Generic For:COUMADIN 4MG 09/25/2016 8:55:58 AM Zetia 10 mg tablet RxNorm: 556143 1 Tablet(s) PO daily 09/25/2016 01/22/2017 Inactive gave 1 month of samples clonazepam 0.5 mg ta blet RxNorm: 304290 1 Tablet(s) PO BID 09/21/2016 02/16/2017 Inactive Lasix 20 mg tablet RxNorm: 1 Tablet(s) PO daily 09/15/2016 12/23/2016 Inactive potassium chloride 2 0 mEq/15 mL oral liquid RxNorm: 999689 Milliliter(s) 30 Milliliter(s) (40mEq) PO daily 09/15/2016 01/12/2017 Inactive Lasix 20 mg tablet RxNorm: 2 Tablet(s) PO daily 09/10/2016 09/12/2016 Inactive Lasix 20 mg tablet RxNorm: 1 Tablet(s) PO daily 08/28/2016 08/30/2016 Inactive Lasix 20 mg tablet RxNorm: 1 Tablet(s) PO daily 08/20/2016 08/22/2016 Inactive Detrol LA 4 mg capsu le,extended release RxNorm: 538784 TAKE 1 CAPSULE BY JAVON TH ONCE DAILY 07/27/2016 02/18/2017 Inactive Generic For:DETROL LA 4MG C AP 07/27/2016 9:08:27 AM Coumadin 4 mg tablet RxNorm: 139964 1 Tablet(s) PO 3 x week tue thur and sun 07/27/2016 09/24/2016 In active omeprazole 20 mg cap sean,delayed release RxNorm: 663458 Capsule(s) PO TAKE 1 CAPSULE BY MOUTH ONCE DAILY 07/27/2016 01/22/2017 Inactive venlafaxine ER 75 mg capsule,extended release 24 hr RxNorm: 565265 1 Capsule(s) PO daily 06/29/2016 06/21/2017 Inactive sodium bicarbonate 6 50 mg tablet RxNorm: 519842 TAKE 2 TABLETS BY JAVON TH TWICE DAILY 06/29/2016 12/23/2016 In active 06/27/2016 9:05:39 AM Coumadin 4 mg tablet RxNorm: 936965 1 Tablet(s) PO 3 x week e and sun 06/09/2016 06/08/2016 In active Coumadin 4 mg tablet RxNorm: 771240 1 Tablet(s) PO 3 x week e thur and sun 06/09/2016 07/26/2016 In active Zetia 10 mg tablet RxNorm: 775572 1 Tablet(s) PO daily 06/09/2016 06/08/2016 Inactive gave 1 month of samples Zetia 10 mg tablet RxNorm: 762217 1 Tablet(s) PO daily 06/09/2016 09/24/2016 Inactive gave 1 month of samples Effexor 75 mg tablet RxNorm: 888642 1 Tablet(s) PO daily 06/08/2016 06/28/2016 Inactive spironolactone 25 mg tablet RxNorm: 502187 1 Tablet(s) PO daily 06/08/2016 05/23/2017 Inactive Synthroid 137 mcg ta blet RxNorm: 855834 1 Tablet(s) PO daily 05/07/2016 11/02/2016 Inactive allopurinol 300 mg t ablet RxNorm: 257871 Tablet(s) TAKE 1 TABL ET BY MOUTH ONCE DAILY. 04/28/2016 10/24/2016 Inactive clonazepam 0.5 mg ta blet RxNorm: 872278 1 Tablet(s) PO BID 04/20/2016 09/15/2016 Inactive Flonase Allergy Reli ef 50 mcg/actuation nasal spray,suspension RxNorm: 9265082 1 [place] NASAL BID 04/02/2016 No Stop Date Active Zithromax Z-Thomas 250 mg tablet RxNorm: 075009 Tablet(s) PO 04/02/2016 08/27/2016 Inactive cetirizine 10 mg tablet RxNorm: 7194265 1 Tablet(s) PO daily 04/02/2016 05/01/2016 Inactive Carafate 1 gram tablet RxNorm: 983976 Tablet(s) TAKE 1 TABLET TWICE A DAY FOR 30 DAYS 03/30/2016 10/25/2016 Inactive Generic For:CARAFATE 1GM 02/08/2015 12:3 6:39 PM Plavix 75 mg tablet RxNorm: 828053 1 Tablet(s) PO daily 03/11/2016 09/06/2016 Inactive sodium bicarbonate 6 50 mg tablet RxNorm: 574098 Tablet(s) 2 Tablet(s) PO BID 02/28/2016 06/26/2016 In active omeprazole 20 mg cap sean,delayed release RxNorm: 406144 Capsule(s) PO TAKE 1 CAPSULE BY MOUTH ONCE DAILY 01/31/2016 07/26/2016 Inactive Fish Oil 1,000 mg ca psule RxNorm: 1 Capsule(s) PO BID 01/14/2016 No Stop Date Active Synthroid 137 mcg ta blet RxNorm: 438141 1 Tablet(s) PO daily 01/14/2016 05/06/2016 Inactive Detrol LA 4 mg capsu le,extended release RxNorm: 657200 TAKE 1 CAPSULE BY JAVON TH ONCE DAILY 12/30/2015 07/26/2016 Inactive Generic For:DETROL LA 4MG C AP 12/30/2015 9:11:01 AM potassium chloride 2 0 mEq/15 mL oral liquid RxNorm: 924732 Milliliter(s) 30 Milliliter(s) (40mEq) PO daily 12/02/2015 03/30/2016 Inactive sodium bicarbonate 6 50 mg tablet RxNorm: 238952 Tablet(s) 2 Tablet(s) PO BID 10/31/2015 02/27/2016 In active Lipitor 40 mg tablet RxNorm: 600731 1 Tablet(s) PO daily 10/09/2015 09/24/2016 Inactive sodium bicarbonate 6 50 mg tablet RxNorm: 524250 2 Tablet(s) PO BID 10/01/2015 10/30/2015 Inactive allopurinol 300 mg t ablet RxNorm: 272933 TAKE 1 TABLET BY MOUT H ONCE DAILY. 10/01/2015 04/27/2016 In active Generic For:ZYLOPRIM 300 MG TABLET 09/19 9:21:15 AM clonazepam 0.5 mg ta blet RxNorm: 547031 1 Tablet(s) PO BID 09/30/2015 04/19/2016 Inactive Coumadin 5 mg tablet RxNorm: 302717 1 Tablet(s) PO daily 09/27/2015 05/31/2017 Inactive Generic For:COUMADIN 5MG TAB N O T I C E PRESCRIPTION PREVIOUSLY AUTHORIZED BY DOCTOR:BOBBY ZULETA Synthroid 125 mcg ta blet RxNorm: 890643 1 Tablet(s) PO daily 09/27/2015 09/26/2015 Inactive Synthroid 125 mcg ta blet RxNorm: 237901 1 Tablet(s) PO daily 09/27/2015 01/13/2016 Inactive Carafate 1 gram tablet RxNorm: 174260 Tablet(s) TAKE 1 TABLET TWICE A DAY FOR 30 DAYS 09/02/2015 03/29/2016 Inactive Generic For:CARAFATE 1GM 02/08/2015 12:3 6:39 PM sodium bicarbonate 6 50 mg tablet RxNorm: 734447 2 Tablet(s) PO BID 09/02/2015 09/30/2015 Inactive Prilosec 20 mg capsu le,delayed release RxNorm: 531493 TAKE 1 CAPSULE BY JAVON TH ONCE DAILY 08/02/2015 01/28/2016 Inactive Generic For:PRILOSEC 20MG 08/02/2015 10:03:09 AM N O T I C E PRESCRIPTION PREVIOUSLY AUTHORIZED BY DOCTOR:BOBBY ZULETA Zyrtec 10 mg capsule RxNorm: 4882215 1 Capsule(s) PO daily 07/15/2015 08/13/2015 Inactive Keflex 500 mg capsule RxNorm: 542354 1 Capsule(s) PO TID 07/15/2015 07/21/2015 Inactive cetirizine 10 mg cap sean RxNorm: 6292163 1 Capsule(s) PO daily 07/15/2015 08/13/2015 Inactive hydrocodone 5 mg-humberto taminophen 325 mg tablet RxNorm: 013923 1-2 Tablet(s) PO Q6 P RN 06/10/2015 11/16/2016 In active sodium bicarbonate 6 50 mg tablet RxNorm: 516186 2 Tablet(s) PO BID 06/03/2015 08/31/2015 Inactive Detrol LA 4 mg capsu le,extended release RxNorm: 881526 TAKE 1 CAPSULE BY JAVON TH ONCE DAILY 06/03/2015 12/29/2015 Inactive Generic For:DETROL LA 4MG C AP N O T I C E PRESCRIPTION PREVIOUSLY AUTHORIZED BY DOCTOR:BOBBY ZULETA atenolol 50 mg tablet RxNorm: 182514 1 Tablet(s) PO daily TAKE 1 TABLET BY MO UTH DAILY 05/07/2015 08/23/2017 Inactive Generic For:TENORMIN 50MG 05/04/2015 9:07:22 AM spironolactone 25 mg tablet RxNorm: 303429 1 Tablet(s) PO daily 05/06/2015 06/07/2016 Inactive venlafaxine ER 75 mg capsule,extended release 24 hr RxNorm: 665658 1 Capsule(s) PO daily 05/04/2015 06/28/2016 Inactive atenolol 50 mg tablet RxNorm: 423397 TAKE 1 TABLET BY MOUTH DAILY 05/04/2015 05/06/2015 Inactive Generic For:TENORMIN 50MG 05/04/2015 9: 07:22 AM Synthroid 150 mcg ta blet RxNorm: 904271 TAKE 1 TABLET BY MOUT H ONCE DAILY. 04/05/2015 09/26/2015 In active Generic For:SYNTHROID 150MCG TAB 2014 4:45:40 PM N O T I C E PRESCRIPTION PREVIOUSLY AUTHORIZED BY DOCTOR:BOBBY ZULETA Effexor 75 mg tablet RxNorm: 166452 1 Tablet(s) PO daily 04/05/2015 07/03/2015 Inactive Coumadin 5 mg tablet RxNorm: 262315 TAKE 1 AND 1/2 TABLETS BY MOUTH ONCE MYRANDA LY 04/04/2015 09/26/2015 In active Generic For:COUMADIN 5MG TAB N O T I C E PRESCRIPTION PREVIOUSLY AUTHORIZED BY DOCTOR:BOBBY ZULETA clonazepam 0.5 mg ta blet RxNorm: 155345 1 Tablet(s) PO BID 03/13/2015 11/05/2015 Inactive sodium bicarbonate 6 50 mg tablet RxNorm: 606839 2 Tablet(s) PO BID 03/08/2015 06/02/2015 Inactive allopurinol 300 mg t ablet RxNorm: 727477 TAKE 1 TABLET BY MOUT H ONCE DAILY. 03/05/2015 09/30/2015 In active N O T I C E PRESCRIPTION PREVIOUSLY A UTHORIZED BY DOCTOR:BOBBY ZULETA Plavix 75 mg tablet RxNorm: 382704 1 Tablet(s) PO daily 02/12/2015 09/09/2015 Inactive clonazepam 0.5 mg ta blet RxNorm: 808740 1 Tablet(s) PO BID 02/11/2015 03/11/2015 Inactive Carafate 1 gram tablet RxNorm: 854324 TAKE 1 TABLET TWICE A DAY FOR 30 DAYS 02/08/2015 02/07/2015 In active Generic For:CARAFATE 1GM 02/08/2015 12:3 6:39 PM Carafate 1 gram tablet RxNorm: 887197 Tablet(s) TAKE 1 TABLET TWICE A DAY FOR 30 DAYS 02/08/2015 09/01/2015 Inactive Generic For:CARAFATE 1GM 02/08/2015 12:3 6:39 PM potassium chloride 2 0 mEq/15 mL oral liquid RxNorm: 694905 30 Milliliter(s) (40m Eq) PO daily 02/05/2015 12/01/2015 Inactive atenolol 50 mg tablet RxNorm: 903776 1 Tablet(s) PO daily 02/04/2015 05/03/2015 Inactive [SAVINGS FOR NON-COVERED DRUGS -- BIN:00 3585, PCN: ASPROD1, Group: XXXXX, ID# [id number], Questions: . THIS IS NOT INSURANCE.] potassium chloride 2 0 mEq/15 mL oral liquid RxNorm: 822421 30 Milliliter(s) (40m Eq) PO daily 01/08/2015 02/04/2015 Inactive potassium chloride 2 0 mEq/15 mL oral liquid RxNorm: 587701 30 Milliliter(s) (40m Eq) PO daily 12/07/2014 01/07/2015 Inactive atenolol 50 mg tablet RxNorm: 926857 1 Tablet(s) PO daily 11/09/2014 11/08/2014 Inactive atenolol 50 mg tablet RxNorm: 283963 1 Tablet(s) PO daily 11/09/2014 02/03/2015 Inactive [SAVINGS FOR NON-COVERED DRUGS -- BIN:00 3585, PCN: ASPROD1, Group: XXXXX, ID# [id number], Questions: . THIS IS NOT INSURANCE.] Voltaren 1 % topical gel RxNorm: 342262 TOP No St art Date Active verapamil ER (HS) 24 0 mg tablet,extended release 24 hr RxNorm: 412508 1 Tablet(s) PO daily No Start Date Active aspirin 81 mg tablet RxNorm: 235342 1 Tablet(s) PO daily No Start Date Active Zofran 4 mg tablet RxNorm: 165881 1 Tablet(s) PO PRN No Start Date Active B12 1000 mcg RxNorm: 1 Tablet(s) PO daily No Start Date Active magnesium oxide 400 mg capsule RxNorm: 208719 2 Capsule(s) PO BID No Start Date Active Synthroid 150 mcg ta blet RxNorm: 160493 1 Tablet(s) PO daily No Start Date 04/04/2015 Inactive Coumadin 5 mg tablet RxNorm: 574951 1 Tablet(s) PO daily No Start Date 04/03/2015 Inactive cranberry 1,000 mg c apsule RxNorm: 295089 1 Capsule(s) PO daily No Start Date 04/13/2018 Inactive allopurinol 300 mg t ablet RxNorm: 040789 1 Tablet(s) PO daily No Start Date 03/04/2015 Inactive Prilosec 20 mg capsu le,delayed release RxNorm: 264812 1 Capsule(s) PO PRN No Start Date 08/01/2015 Inactive potassium chloride 2 0 mEq/15 mL oral liquid RxNorm: 562031 30 Milliliter(s) (40m Eq) PO daily No Start Date 12/06/2014 Inactive atenolol 50 mg tablet RxNorm: 376373 1 Tablet(s) PO daily No Start Date 08/29/2017 Inactive Lipitor 40 mg tablet RxNorm: 241736 1 Tablet(s) PO daily No Start Date 09/19/2017 Inactive Effexor 75 mg tablet RxNorm: 420144 1 Tablet(s) PO daily No Start Date 04/04/2015 Inactive Carafate 1 gram tablet RxNorm: 397968 1 Tablet(s) PO BID No Start Date 02/07/2015 Inactive clonazepam 0.5 mg ta blet RxNorm: 333934 1 Tablet(s) PO BID No Start Date 02/10/2015 Inactive Plavix 75 mg tablet RxNorm: 348087 1 Tablet(s) PO daily No Start Date 02/11/2015 Inactive sodium bicarbonate 6 50 mg tablet RxNorm: 551416 2 Tablet(s) PO BID No Start Date 09/01/2015 Inactive Lovenox 30 mg/0.3 mL subcutaneous syringe RxNorm: 462540 0.3 Milliliter(s) SQ Q12H No Start Date 03/15/2017 Inactive Fish Oil 1,000 mg ca psule RxNorm: 1 Capsule(s) PO daily No Start Date 01/13/2016 Inactive Detrol LA 4 mg capsu le,extended release RxNorm: 717124 1 Capsule(s) PO daily No Start Date 06/02/2015 Inactive Medication Administered No Medication Administered data Immunizations Vaccine Codes Date Status SHINGARIX CVX: 121 03/23 completed Assessments Condition Codes Effectiv e Dates Hypothyroidism, unspecified ICD-10: E03.9 ICD-9: 244.9 04/14/2018 Essential (primary) hypertension ICD -10: I10 ICD-9: 401.9 04/14/2018 shelter (current) use of anticoagulants ICD-10: Z79.01 ICD-9: [...] Observation Code Item Item Code Result Date Free T4 [id number] FREE T4 1.09 ng/dL 04/14/2018 Tsh Ord6 TSH (3rd IS) 2.36 uIU/mL 04/14/2018 Pt [id number] PT 20.3 seconds 04/14/2018 Pt [id number] INR 1.8 04/14/2018 Pt [id number] Low Intensity - 1.5-2.0 04/14/2018 Pt [id number] Mod intensity - 2.0-3.0 04/14/2018 Pt [id number] Hi intensity - 3.0-4.0 04/14/2018 Lipid Ord30 CHOL 149 mg/dL 04/14/2018 Lipid Ord30 HDL 49.0 mg/dl 04/14/2018 Lipid Ord30 TRIG 161 mg/dL 04/14/2018 Lipid Ord30 LDL 68 mg/dL 04/14/2018 Lipid Ord30 C/HDL 3.0 Ratio 04/14/2018 %Hba1C Trt388 % HbA1c 78353-9 5.9 % 04/14/2018 %Hba1C Nys829 Gluc Ave 123 mg/dL 04/14/2018 Comp Metabolic Iyb131 NA 140 mEq/L 04/14/2018 Comp Metabolic Xgq787 K 4.1 mEq/L 04/14/2018 Comp Metabolic Imk436 CL 105 mEq/L 04/14/2018 Comp Metabolic Van591 CO2 28.0 mEq/L 04/14/2018 Comp Metabolic Wnx281 AN ION GAP 11 04/14/2018 Comp Metabolic Yrk855 GL UCOSE 112 mg/dL 04/14/2018 Comp Metabolic Uio309 Cr eat 1.0 mg/dL 04/14/2018 Comp Metabolic Pdf595 eG FR 58 ml/min/1.73m2 04/14 Comp Metabolic Sex349 BUN 20 mg/dL 04/14/2018 Comp Metabolic Wwg327 B/ C Ratio 20.2 Ratio 04/14/2018 Comp Metabolic Ewp976 CA LCIUM 10.0 mg/dL 04/14/2018 Comp Metabolic Wrh932 AL K PHOS 51 U/L 04/14/2018 Comp Metabolic Syi914 T(SGOT) 24 U/L 04/14/2018 Comp Metabolic Fkb812 AL T(SGPT) 21 U/L 04/14/2018 Comp Metabolic Vuq994 BI LI T 0.8 mg/dL 04/14/2018 Comp Metabolic Njr859 AL BUMIN 4.2 g/dL 04/14/2018 Comp Metabolic Qar440 TP RO 7.1 g/dL 04/14/2018 Comp Metabolic Sxd516 GL OB 2.9 g/dL 04/14/2018 Comp Metabolic Rzg842 A/ G Ratio 1.5 Ratio 04/14/2018 Comp Metabolic Bye689 Os mo 283 mOsmo 04/14/2018 Cbc With [...] 30.7 pg 04/14/2018 Cbc With Differential Ord2 Noble% 10.6 % 04/14/2018 Cbc With Differential Ord2 [...] 1.18 K/ul 04/14/2018 Cbc With Differential Ord2 Noble ABS# 0.5 K/ul 04/14/2018 Cbc With Differential Ord2 Eos ABS# 0.2 K/ul 04/14/2018 Cbc With Differential Ord2 Baso ABS# 0.1 K/ul 04/14/2018 Pt Dgx2706 PT 29.3 seconds 02/11/2018 Pt Gmm6152 INR 2.8 02/11/2018 Pt Gpq4632 Low Intensity - 1.5-2.0 02/11/2018 Pt Spa5662 Mod intensity - 2.0-3.0 02/11/2018 Pt Sna1746 Hi intensity - 3.0-4.0 02/11/2018 Comp Metabolic Sny000 NA 141 mEq/L 01/05/2018 Comp Metabolic Ccw592 K 3.7 mEq/L 01/05/2018 Comp Metabolic Pmz084 CL 102 mEq/L 01/05/2018 Comp Metabolic Bnk912 CO2 29.0 mEq/L 01/05/2018 Comp Metabolic Jcf645 AN ION GAP 14 01/05/2018 Comp Metabolic Otg147 GL UCOSE 136 mg/dL 01/05/2018 Comp Metabolic Jnn579 Cr eat 1.0 mg/dL 01/05/2018 Comp Metabolic Xxm582 eG FR 61 ml/min/1.73m2 01/05 Comp Metabolic Lcn774 BUN 22 mg/dL 01/05/2018 Comp Metabolic Dbe344 B/ C Ratio 22.9 Ratio 01/05/2018 Comp Metabolic Cfa889 CA LCIUM 9.7 mg/dL 01/05/2018 Comp Metabolic Nyz373 AL K PHOS 57 U/L 01/05/2018 Comp Metabolic Wrp065 T(SGOT) 21 U/L 01/05/2018 Comp Metabolic Vzq553 AL T(SGPT) 19 U/L 01/05/2018 Comp Metabolic Sak437 BI LI T 0.9 mg/dL 01/05/2018 Comp Metabolic Efr866 AL BUMIN 4.1 g/dL 01/05/2018 Comp Metabolic Met685 TP RO 7.1 g/dL 01/05/2018 Comp Metabolic Pld299 GL OB 3.0 g/dL 01/05/2018 Comp Metabolic Wgg869 A/ G Ratio 1.4 Ratio 01/05/2018 Comp Metabolic Ljc255 Os mo 287 mOsmo 01/05/2018 Free T4 Bjv969 FREE T4 1.05 ng/dL 01/05/2018 %Hba1C Jbf627 % HbA1c 79097-3 6.0 % 01/05/2018 %Hba1C Vzj213 Gluc Ave 126 mg/dL 01/05/2018 Cbc With [...] 27.3 % 01/05/2018 Cbc With Differential Ord2 Noble% 10.5 % 01/05/2018 Cbc With Differential Ord2 [...] 1.27 K/ul 01/05/2018 Cbc With Differential Ord2 Noble ABS# 0.5 K/ul 01/05/2018 Cbc With Differential Ord2 Eos ABS# 0.2 K/ul 01/05/2018 Cbc With Differential Ord2 Baso ABS# 0.1 K/ul 01/05/2018 Pt Ewz6357 PT 20.7 seconds 01/05/2018 Pt Ptz9815 INR 1.8 01/05/2018 Pt Sjg4674 Low Intensity - 1.5-2.0 01/05/2018 Pt Wha4381 Mod intensity - 2.0-3.0 01/05/2018 Pt Liz0819 Hi intensity - 3.0-4.0 01/05/2018 Tsh Ord6 TSH (3rd IS) 2.34 uIU/mL 01/05/2018 Lipid Ord30 CHOL 156 mg/dL 01/05/2018 Lipid Ord30 HDL 48.0 mg/dl 01/05/2018 Lipid Ord30 TRIG 207 mg/dL 01/05/2018 Lipid Ord30 LDL 67 mg/dL 01/05/2018 Lipid Ord30 C/HDL 3.3 Ratio 01/05/2018 Pt Jjr6685 PT 28.3 seconds 11/26/2017 Pt Prb4143 INR 2.6 11/26/2017 Pt Ned3131 Low Intensity - 1.5-2.0 11/26/2017 Pt Aqn6143 Mod intensity - 2.0-3.0 11/26/2017 Pt Cct6668 Hi intensity - 3.0-4.0 11/26/2017 Pt Pqx5074 PT 36.5 seconds 11/19/2017 Pt Zoc8709 INR 3.6 11/19/2017 Pt Pjj4629 Low Intensity - 1.5-2.0 11/19/2017 Pt Yeq5845 Mod intensity - 2.0-3.0 11/19/2017 Pt Hpb7702 Hi intensity - 3.0-4.0 11/19/2017 Pt Veq9656 PT 22.9 seconds 10/15/2017 Pt Ooi4135 INR 2.0 10/15/2017 Pt Bcq8956 Low Intensity - 1.5-2.0 10/15/2017 Pt Etr0335 Mod intensity - 2.0-3.0 10/15/2017 Pt Dhz3871 Hi intensity - 3.0-4.0 10/15/2017 Pt Dig9136 PT 25.9 seconds 10/01/2017 Pt Tup1037 INR 2.4 10/01/2017 Pt Vvu8668 Low Intensity - 1.5-2.0 10/01/2017 Pt Gzq1937 Mod intensity - 2.0-3.0 10/01/2017 Pt Wij4768 Hi intensity - 3.0-4.0 10/01/2017 Pt Fuy9341 PT 20.6 seconds 09/24/2017 Pt Gkq8856 INR 1.8 09/24/2017 Pt Cje0425 Low Intensity - 1.5-2.0 09/24/2017 Pt Cdu9970 Mod intensity - 2.0-3.0 09/24/2017 Pt Diy2770 Hi intensity - 3.0-4.0 09/24/2017 Pt Ijj3161 PT 21.0 seconds 09/15/2017 Pt Scg1896 INR 1.8 09/15/2017 Pt Adl7783 Low Intensity - 1.5-2.0 09/15/2017 Pt Zfb7411 Mod intensity - 2.0-3.0 09/15/2017 Pt Dre4692 Hi intensity - 3.0-4.0 09/15/2017 Pt Hhj8508 PT 19.0 seconds 09/03/2017 Pt Efv3141 INR 1.6 09/03/2017 Pt Ejw2882 Low Intensity - 1.5-2.0 09/03/2017 Pt Sxi3767 Mod intensity - 2.0-3.0 09/03/2017 Pt Nrj4936 Hi intensity - 3.0-4.0 09/03/2017 Pt Ftr9275 PT 17.6 seconds 08/23/2017 Pt Gbj1361 INR 1.5 08/23/2017 Pt Amb2872 Low Intensity - 1.5-2.0 08/23/2017 Pt Tuk0396 Mod intensity - 2.0-3.0 08/23/2017 Pt Iyc8303 Hi intensity - 3.0-4.0 08/23/2017 Pt Wwa3997 PT 12.7 seconds 08/20/2017 Pt Ldl5629 INR 1.0 08/20/2017 Pt Gkf0181 Low Intensity - 1.5-2.0 08/20/2017 Pt Kdf6916 Mod intensity - 2.0-3.0 08/20/2017 Pt Wjo7161 Hi intensity - 3.0-4.0 08/20/2017 Pt Tzr3863 PT 12.9 seconds 08/17/2017 Pt Isp9991 INR 1.0 08/17/2017 Pt Nmy5034 Low Intensity - 1.5-2.0 08/17/2017 Pt Uog5674 Mod intensity - 2.0-3.0 08/17/2017 Pt Oek7950 Hi intensity - 3.0-4.0 08/17/2017 Pt Smb6010 PT 18.5 seconds 08/10/2017 Pt Ecr7918 INR 1.6 08/10/2017 Pt Vsl8762 Low Intensity - 1.5-2.0 08/10/2017 Pt Tjh0307 Mod intensity - 2.0-3.0 08/10/2017 Pt Hcr9060 Hi intensity - 3.0-4.0 08/10/2017 Tsh Ord6 [...] 29.3 pg 05/27/2017 Cbc With Differential Ord2 Noble% 8.1 % 05/27/2017 Cbc With Differential Ord2 [...] 1.11 K/ul 05/27/2017 Cbc With Differential Ord2 Noble ABS# 0.6 K/ul 05/27/2017 Cbc With Differential Ord2 Eos ABS# 0.2 K/ul 05/27/2017 Cbc With Differential Ord2 Baso ABS# 0.1 K/ul 05/27/2017 Pt Ovs0343 PT 28.2 seconds 05/27/2017 Pt Hpn5531 INR 2.6 05/27/2017 Pt Jwt8478 Low Intensity - 1.5-2.0 05/27/2017 Pt Yng1665 Mod intensity - 2.0-3.0 05/27/2017 Pt Dof2058 Hi intensity - 3.0-4.0 05/27/2017 Lipid Ord30 CHOL 167 mg/dL 05/27/2017 Lipid Ord30 HDL 49.0 mg/dl 05/27/2017 Lipid Ord30 TRIG 347 mg/dL 05/27/2017 Lipid Ord30 LDL 49 mg/dL 05/27/2017 Lipid Ord30 C/HDL 3.4 Ratio 05/27/2017 Magnesium Ord90 Mag 1.4 mg/dL 05/27/2017 %Hba1C Zjr142 % HbA1c 04054-9 5.9 % 05/27/2017 %Hba1C Qpl204 Gluc Ave 123 mg/dL 05/27/2017 Comp Metabolic Div453 NA 138 mEq/L 05/27/2017 Comp Metabolic Caw621 K 4.1 mEq/L 05/27/2017 Comp Metabolic Wbp435 CL 101 mEq/L 05/27/2017 Comp Metabolic Ryn181 CO2 31.0 mEq/L 05/27/2017 Comp Metabolic Ixv762 AN ION GAP 10 05/27/2017 Comp Metabolic Cgt025 GL UCOSE 117 mg/dL 05/27/2017 Comp Metabolic Hif601 Cr eat 0.9 mg/dL 05/27/2017 Comp Metabolic Amj225 eG FR 62 ml/min/1.73m2 05/27 Comp Metabolic Iud619 BUN 25 mg/dL 05/27/2017 Comp Metabolic Oeq581 B/ C Ratio 26.6 Ratio 05/27/2017 Comp Metabolic Egb307 CA LCIUM 9.5 mg/dL 05/27/2017 Comp Metabolic Lks500 AL K PHOS 73 U/L 05/27/2017 Comp Metabolic Knj222 T(SGOT) 18 U/L 05/27/2017 Comp Metabolic Uwd852 AL T(SGPT) 12 U/L 05/27/2017 Comp Metabolic Yhe111 BI LI T 0.5 mg/dL 05/27/2017 Comp Metabolic Szm976 AL BUMIN 4.1 g/dL 05/27/2017 Comp Metabolic Xct034 TP RO 7.1 g/dL 05/27/2017 Comp Metabolic Fak267 GL OB 3.0 g/dL 05/27/2017 Comp Metabolic Aoa592 A/ G Ratio 1.3 Ratio 05/27/2017 Comp Metabolic Kpa104 Os mo 281 mOsmo 05/27/2017 Free T4 Xci887 FREE T4 0.91 ng/dL 05/27/2017 Pt Lpv9262 PT 29.2 seconds 04/16/2017 Pt Eah9971 INR 2.7 04/16/2017 Pt Rft3207 Low Intensity - 1.5-2.0 04/16/2017 Pt Ugd3496 Mod intensity - 2.0-3.0 04/16/2017 Pt Zbt3839 Hi intensity - 3.0-4.0 04/16/2017 Pt Vlh2051 PT 30.7 seconds 03/31/2017 Pt Pbw5246 INR 2.9 03/31/2017 Pt Nrk6497 Low Intensity - 1.5-2.0 03/31/2017 Pt Rlf7056 Mod intensity - 2.0-3.0 03/31/2017 Pt Wcu6057 Hi intensity - 3.0-4.0 03/31/2017 Pt Rfh1852 PT 21.3 seconds 03/26/2017 Pt Srf8564 INR 1.9 03/26/2017 Pt Fno4851 Low Intensity - 1.5-2.0 03/26/2017 Pt Ask4903 Mod intensity - 2.0-3.0 03/26/2017 Pt Lar3929 Hi intensity - 3.0-4.0 03/26/2017 Pt Uee2710 PT 19.8 seconds 03/22/2017 Pt Zja2493 INR 1.7 03/22/2017 Pt Xun6011 Low Intensity - 1.5-2.0 03/22/2017 Pt Pwy9161 Mod intensity - 2.0-3.0 03/22/2017 Pt Ioy3013 Hi intensity - 3.0-4.0 03/22/2017 Pt Nbw2557 PT 15.6 seconds 03/19/2017 Pt Bky0039 INR 1.3 03/19/2017 Pt Owm8457 Low Intensity - 1.5-2.0 03/19/2017 Pt Quz3408 Mod intensity - 2.0-3.0 03/19/2017 Pt Map8540 Hi intensity - 3.0-4.0 03/19/2017 Pt Aqb2778 PT 13.7 seconds 03/15/2017 Pt Mky6342 INR 1.1 03/15/2017 Pt Fai8294 Low Intensity - 1.5-2.0 03/15/2017 Pt Vry1937 Mod intensity - 2.0-3.0 03/15/2017 Pt Ybz3301 Hi intensity - 3.0-4.0 03/15/2017 Pt Wyw3913 PT 25.8 seconds 01/28/2017 Pt Nbx8816 INR 2.4 01/28/2017 Pt Egp1405 Low Intensity - 1.5-2.0 01/28/2017 Pt Juw2203 Mod intensity - 2.0-3.0 01/28/2017 Pt Auu1417 Hi intensity - 3.0-4.0 01/28/2017 %Hba1C Qhd406 % HbA1c 37334-2 6.4 % 10/23/2016 %Hba1C Wfp983 Gluc Ave 137 mg/dL 10/23/2016 Comp Metabolic Bzx114 NA 138 mEq/L 10/23/2016 Comp Metabolic Mzt644 K 3.4 mEq/L 10/23/2016 Comp Metabolic Qgw049 CL 100 mEq/L 10/23/2016 Comp Metabolic Ozy360 CO2 30.0 mEq/L 10/23/2016 Comp Metabolic Tfo385 AN ION GAP 11 10/23/2016 Comp Metabolic Smy918 GL UCOSE 139 mg/dL 10/23/2016 Comp Metabolic Fik871 Cr eat 0.9 mg/dL 10/23/2016 Comp Metabolic Xag272 eG FR 62 ml/min/1.73m2 10/23 Comp Metabolic Ojw723 BUN 22 mg/dL 10/23/2016 Comp Metabolic Uco089 B/ C Ratio 23.4 Ratio 10/23/2016 Comp Metabolic Mmu496 CA LCIUM 8.7 mg/dL 10/23/2016 Comp Metabolic Ehl891 AL K PHOS 66 U/L 10/23/2016 Comp Metabolic Fom016 T(SGOT) 20 U/L 10/23/2016 Comp Metabolic Pit205 AL T(SGPT) 10 U/L 10/23/2016 Comp Metabolic Fsn370 BI LI T 0.5 mg/dL 10/23/2016 Comp Metabolic Xcq396 AL BUMIN 3.5 g/dL 10/23/2016 Comp Metabolic Tha732 TP RO 6.3 g/dL 10/23/2016 Comp Metabolic Bpb264 GL OB 2.8 g/dL 10/23/2016 Comp Metabolic Hzo792 A/ G Ratio 1.3 Ratio 10/23/2016 Comp Metabolic Gyt322 Os mo 281 mOsmo 10/23/2016 Pt Ogq9522 PT 26.8 seconds 10/23/2016 Pt Zpw6691 INR 2.7 10/23/2016 Pt Vnt8441 Low Intensity - 1.5-2.0 10/23/2016 Pt Tfp4347 Mod intensity - 2.0-3.0 10/23/2016 Pt Fyh8237 Hi intensity - 3.0-4.0 10/23/2016 Pt Qht1293 PT 28.3 seconds 09/25/2016 Pt Dki7715 INR 2.8 09/25/2016 Pt Gnj7655 Low Intensity - 1.5-2.0 09/25/2016 Pt Hrx8050 Mod intensity - 2.0-3.0 09/25/2016 Pt Aen1295 Hi intensity - 3.0-4.0 09/25/2016 Metabolic Ord15 [...] Metabolic Ord15 CALCIUM 8.8 mg/dL 09/25/2016 Pt Lpl1378 PT 30.6 seconds 09/11/2016 Pt Sfp1911 INR 3.2 09/11/2016 Pt Sgh8851 Low Intensity - 1.5-2.0 09/11/2016 Pt Zjl4427 Mod intensity - 2.0-3.0 09/11/2016 Pt Yvo9565 Hi intensity - 3.0-4.0 09/11/2016 Comp Metabolic Ddd747 NA 138 mEq/L 09/11/2016 Comp Metabolic Icv434 K 4.4 mEq/L 09/11/2016 Comp Metabolic Zjt809 CL 103 mEq/L 09/11/2016 Comp Metabolic Ajg181 CO2 31.0 mEq/L 09/11/2016 Comp Metabolic Jpu807 AN ION GAP 8 09/11/2016 Comp Metabolic Iol560 GL UCOSE 146 mg/dL 09/11/2016 Comp Metabolic Vgs315 Cr eat 1.0 mg/dL 09/11/2016 Comp Metabolic Qwm875 eG FR 60 ml/min/1.73m2 09/11 Comp Metabolic Qwa918 BUN 16 mg/dL 09/11/2016 Comp Metabolic Hvr364 B/ C Ratio 16.5 Ratio 09/11/2016 Comp Metabolic Git551 CA LCIUM 8.7 mg/dL 09/11/2016 Comp Metabolic Zvo286 AL K PHOS 52 U/L 09/11/2016 Comp Metabolic Sys928 T(SGOT) 19 U/L 09/11/2016 Comp Metabolic Imm009 AL T(SGPT) 11 U/L 09/11/2016 Comp Metabolic Cwy058 BI LI T 0.7 mg/dL 09/11/2016 Comp Metabolic Fro565 AL BUMIN 3.3 g/dL 09/11/2016 Comp Metabolic Grb794 TP RO 5.8 g/dL 09/11/2016 Comp Metabolic Byt911 GL OB 2.5 g/dL 09/11/2016 Comp Metabolic Wws295 A/ G Ratio 1.3 Ratio 09/11/2016 Comp Metabolic Gmn279 Os mo 280 mOsmo 09/11/2016 C-Reactive Protein Qnt Crqnt CRP 0.1 mg/dl 08/21/2016 Comp Metabolic Ayk281 NA 139 mEq/L 08/21/2016 Comp Metabolic Lfi565 K 4.1 mEq/L 08/21/2016 Comp Metabolic Vwc603 CL 102 mEq/L 08/21/2016 Comp Metabolic Uyq637 CO2 30.0 mEq/L 08/21/2016 Comp Metabolic Ssj890 AN ION GAP 11 08/21/2016 Comp Metabolic Bzf450 GL UCOSE 148 mg/dL 08/21/2016 Comp Metabolic Ote810 Cr eat 1.0 mg/dL 08/21/2016 Comp Metabolic Mml550 eG FR 55 ml/min/1.73m2 08/21 Comp Metabolic Rst357 BUN 21 mg/dL 08/21/2016 Comp Metabolic Zno406 B/ C Ratio 20.2 Ratio 08/21/2016 Comp Metabolic Nwn229 CA LCIUM 9.4 mg/dL 08/21/2016 Comp Metabolic Mug679 AL K PHOS 63 U/L 08/21/2016 Comp Metabolic Sdo678 T(SGOT) 23 U/L 08/21/2016 Comp Metabolic Sls849 AL T(SGPT) 16 U/L 08/21/2016 Comp Metabolic Cyz573 BI LI T 0.6 mg/dL 08/21/2016 Comp Metabolic Cka641 AL BUMIN 3.9 g/dL 08/21/2016 Comp Metabolic Ryd845 TP RO 6.8 g/dL 08/21/2016 Comp Metabolic Jvi224 GL OB 2.9 g/dL 08/21/2016 Comp Metabolic Iyo744 A/ G Ratio 1.4 Ratio 08/21/2016 Comp Metabolic Sjo183 Os mo 283 mOsmo 08/21/2016 Sed Rate Ord21 ESR 16 mm/hr 08/21/2016 Pt Bbx3972 PT 27.2 seconds 08/21/2016 Pt Had0249 INR 2.7 08/21/2016 Pt Yrl5457 Low Intensity - 1.5-2.0 08/21/2016 Pt Puc8283 Mod intensity - 2.0-3.0 08/21/2016 Pt Ypg6739 Hi intensity - 3.0-4.0 08/21/2016 Magnesium Ord90 Mag 1.9 mg/dL 08/21/2016 Pt Byk8366 PT 25.9 seconds 06/17/2016 Pt Krb1792 INR 2.5 06/17/2016 Pt Zoz2903 Low Intensity - 1.5-2.0 06/17/2016 Pt Foo2671 Mod intensity - 2.0-3.0 06/17/2016 Pt Owz5362 Hi intensity - 3.0-4.0 06/17/2016 Tsh Ord6 hTSH II 2.13 uIU/mL 06/08/2016 Free T4 Gds960 FREE T4 0.79 ng/dL 06/08/2016 Cbc With [...] 80.8 fl 06/08/2016 Cbc With Differential Ord2 Noble% 12.0 % 06/08/2016 Cbc With Differential Ord2 [...] 1.40 K/ul 06/08/2016 Cbc With Differential Ord2 Noble ABS# 0.7 K/ul 06/08/2016 Cbc With Differential Ord2 Eos ABS# 0.3 K/ul 06/08/2016 Cbc With Differential Ord2 Baso ABS# 0.1 K/ul 06/08/2016 %Hba1C Pkz532 % HbA1c 81790-4 6.2 % 06/08/2016 %Hba1C Fzd659 Gluc Ave 131 mg/dL 06/08/2016 Comp Metabolic Vcd236 NA 138 mEq/L 06/08/2016 Comp Metabolic Zpr419 K 3.9 mEq/L 06/08/2016 Comp Metabolic Jfa019 CL 105 mEq/L 06/08/2016 Comp Metabolic Mjd514 CO2 27.0 mEq/L 06/08/2016 Comp Metabolic Bed829 AN ION GAP 10 06/08/2016 Comp Metabolic Wti907 GL UCOSE 127 mg/dL 06/08/2016 Comp Metabolic Gum661 Cr eat 1.0 mg/dL 06/08/2016 Comp Metabolic Ata369 eG FR 59 ml/min/1.73m2 06/08 Comp Metabolic Vfc618 BUN 19 mg/dL 06/08/2016 Comp Metabolic Vji608 B/ C Ratio 19.4 Ratio 06/08/2016 Comp Metabolic Opj322 CA LCIUM 9.2 mg/dL 06/08/2016 Comp Metabolic Qpg918 AL K PHOS 77 U/L 06/08/2016 Comp Metabolic Zmd487 T(SGOT) 19 U/L 06/08/2016 Comp Metabolic Zkr924 AL T(SGPT) 13 U/L 06/08/2016 Comp Metabolic Ozi934 BI LI T 0.5 mg/dL 06/08/2016 Comp Metabolic Skw483 AL BUMIN 3.8 g/dL 06/08/2016 Comp Metabolic Nwy143 TP RO 6.6 g/dL 06/08/2016 Comp Metabolic Qmh138 GL OB 2.8 g/dL 06/08/2016 Comp Metabolic Hlc995 A/ G Ratio 1.4 Ratio 06/08/2016 Comp Metabolic Yvf486 Os mo 280 mOsmo 06/08/2016 Pt Zqi9259 PT 36.1 seconds 06/08/2016 Pt Jar3328 INR 3.9 06/08/2016 Pt Xwh7155 Low Intensity - 1.5-2.0 06/08/2016 Pt Qzs6117 Mod intensity - 2.0-3.0 06/08/2016 Pt Egv3805 Hi intensity - 3.0-4.0 06/08/2016 Lipid Ord30 CHOL 149 mg/dL 06/08/2016 Lipid Ord30 HDL 46.0 mg/dl 06/08/2016 Lipid Ord30 TRIG 279 mg/dL 06/08/2016 Lipid Ord30 LDL 47 mg/dL 06/08/2016 Lipid Ord30 C/HDL 3.2 Ratio 06/08/2016 Pt Fiz8561 PT 30.9 seconds 02/12/2016 Pt Ctf1174 INR 3.2 02/12/2016 Pt Jsl2053 Low Intensity - 1.5-2.0 02/12/2016 Pt Pjy0060 Mod intensity - 2.0-3.0 02/12/2016 Pt Qmi4958 Hi intensity - 3.0-4.0 02/12/2016 Free T4 Vhv653 FREE T4 1.24 ng/dL 09/27/2015 %Hba1C Rfw779 % HbA1c 33103-5 6.4 % 09/27/2015 %Hba1C Llw513 Gluc Ave 137 mg/dL 09/27/2015 Tsh Ord6 hTSH II 0.37 uIU/mL 09/27/2015 Pt Von6771 PT 26.2 seconds 09/27/2015 Pt Exs7984 INR 2.5 09/27/2015 Pt Qmd3849 Low Intensity - 1.5-2.0 09/27/2015 Pt Run3545 Mod intensity - 2.0-3.0 09/27/2015 Pt Zub5391 Hi intensity - 3.0-4.0 09/27/2015 Pt Olc0527 PT 27.6 seconds 2015 Pt Gqx0896 INR 2.7 2015 Pt Xir0436 Low Intensity - 1.5-2.0 2015 Pt Tdv8178 Mod intensity - 2.0-3.0 2015 Pt Byv9231 Hi intensity - 3.0-4.0 2015 %Hba1C Cok418 % HbA1c 67991-7 6.1 % 06/11/2015 %Hba1C Jbx489 Gluc Ave 128 mg/dL 06/11/2015 Cbc With [...] Ord2 RDW 15.8 % 06/10/2015 Comp Metabolic Ctf176 NA 139 mEq/L 06/10/2015 Comp Metabolic Ojs745 K 4.1 mEq/L 06/10/2015 Comp Metabolic Fwc922 CL 105 mEq/L 06/10/2015 Comp Metabolic Bht890 CO2 27.0 mEq/L 06/10/2015 Comp Metabolic Hzt858 AN ION GAP 11 06/10/2015 Comp Metabolic Toe189 GL UCOSE 127 mg/dL 06/10/2015 Comp Metabolic Cgv755 Cr eat 1.0 mg/dL 06/10/2015 Comp Metabolic Uxg102 eG FR 59 ml/min/1.73m2 06/10 Comp Metabolic Iii083 BUN 21 mg/dL 06/10/2015 Comp Metabolic Twx762 B/ C Ratio 21.2 Ratio 06/10/2015 Comp Metabolic Ttt231 CA LCIUM 9.2 mg/dL 06/10/2015 Comp Metabolic Mke923 AL K PHOS 87 U/L 06/10/2015 Comp Metabolic Vhp741 T(SGOT) 20 U/L 06/10/2015 Comp Metabolic Qve742 AL T(SGPT) 17 U/L 06/10/2015 Comp Metabolic Uex248 BI LI T 0.4 mg/dL 06/10/2015 Comp Metabolic Mpv698 AL BUMIN 4.1 g/dL 06/10/2015 Comp Metabolic Crq881 TP RO 7.2 g/dL 06/10/2015 Comp Metabolic Hbb666 GL OB 3.1 g/dL 06/10/2015 Comp Metabolic Nyy222 A/ G Ratio 1.3 Ratio 06/10/2015 Comp Metabolic Uve212 Os mo 282 mOsmo 06/10/2015 Tsh Ord6 hTSH II 0.86 uIU/mL 06/10/2015 Lipid Ord30 CHOL 161 mg/dL 06/10/2015 Lipid Ord30 HDL 49.0 mg/dl 06/10/2015 Lipid Ord30 TRIG 208 mg/dL 06/10/2015 Lipid Ord30 LDL 70 mg/dL 06/10/2015 Lipid Ord30 C/HDL 3.3 Ratio 06/10/2015 Pt Hum8050 PT 25.0 seconds 04/09/2015 Pt Jsd9376 INR 2.4 04/09/2015 Pt Rii5272 Low Intensity - 1.5-2.0 04/09/2015 Pt Zfp2173 Mod intensity - 2.0-3.0 04/09/2015 Pt Gqx4642 Hi intensity - 3.0-4.0 04/09/2015 Free T4 Adv151 FREE T4 1.05 ng/dL 01/22/2015 Pt Yow2265 PT 27.2 seconds 01/22/2015 Pt Bjw5122 INR 2.6 01/22/2015 Pt Avr4705 Low Intensity - 1.5-2.0 01/22/2015 Pt Yiy9751 Mod intensity - 2.0-3.0 01/22/2015 Pt Tew8260 Hi intensity - 3.0-4.0 01/22/2015 Cbc With [...] Differential Ord2 RDW 15.2 % 01/22/2015 B12 Dbr564 B12 402.00 pg/ml 01/22/2015 Tsh Ord6 hTSH II 0.65 uIU/mL 01/22/2015 Lipid Ord30 CHOL 166 mg/dL 01/22/2015 Lipid Ord30 HDL 48.0 mg/dl 01/22/2015 Lipid Ord30 TRIG 264 mg/dL 01/22/2015 Lipid Ord30 LDL 65 mg/dL 01/22/2015 Lipid Ord30 C/HDL 3.5 Ratio 01/22/2015 Comp Metabolic Mvy201 NA 138 mEq/L 01/22/2015 Comp Metabolic Xea451 K 4.1 mEq/L 01/22/2015 Comp Metabolic Kjk375 CL 104 mEq/L 01/22/2015 Comp Metabolic Puc572 CO2 29.0 mEq/L 01/22/2015 Comp Metabolic Erj841 AN ION GAP 9 01/22/2015 Comp Metabolic Wmg218 GL UCOSE 106 mg/dL 01/22/2015 Comp Metabolic Imk375 Cr eat 0.9 mg/dL 01/22/2015 Comp Metabolic Esw068 eG FR 63 ml/min/1.73m2 01/22 Comp Metabolic Skv289 BUN 21 mg/dL 01/22/2015 Comp Metabolic Din048 B/ C Ratio 22.3 Ratio 01/22/2015 Comp Metabolic Zat432 CA LCIUM 9.4 mg/dL 01/22/2015 Comp Metabolic Vcp840 AL K PHOS 83 U/L 01/22/2015 Comp Metabolic Pxt608 T(SGOT) 23 U/L 01/22/2015 Comp Metabolic Cfg649 AL T(SGPT) 18 U/L 01/22/2015 Comp Metabolic Izd444 BI LI T 0.8 mg/dL 01/22/2015 Comp Metabolic Stv065 AL BUMIN 4.2 g/dL 01/22/2015 Comp Metabolic Uqm834 TP RO 7.3 g/dL 01/22/2015 Comp Metabolic Krp624 GL OB 3.1 g/dL 01/22/2015 Comp Metabolic Fqi900 A/ G Ratio 1.4 Ratio 01/22/2015 Comp Metabolic Wis486 Os mo 279 mOsmo 01/22/2015 Review of [...] Date URINALYSIS NONAUTO W /O SCOPE CPT-4: 94002 03/05/2017 Vital Signs Date Vital 04/14/2018 Blood Pressure 1: 116/78 Code: 8480-6 BMI: 41.6 Code: 25395-5 Heart Rate 1: 72 bpm Height: 5'1" SpO2: 98% Weight: 220 lbs 01/18/2018 Blood Pressure 1: 132/74 Code: 8480-6 BMI: 43.5 Code: 62520-3 Heart Rate 1: 70 bpm Height: 5'1" SpO2: 97% Weight: 230 lbs 01/04/2018 Blood Pressure 1: 134/76 Code: 8480-6 BMI: 42.7 Code: 44823-4 Heart Rate 1: 83 bpm Height: 5'1" SpO2: 98% Weight: 226 lbs 09/23/2017 Blood Pressure 1: 124/76 Code: 8480-6 BMI: 42.3 Code: 47699-0 Heart Rate 1: 94 bpm Height: 5'1" SpO2: 96% Weight: 224 lbs 05/27/2017 Blood Pressure 1: 146/78 Code: 8480-6 BMI: 41.4 Code: 25915-9 Heart Rate 1: 85 bpm Height: 5'1" SpO2: 98% Weight: 219 lbs 02/24/2017 Blood Pressure 1: 138/66 Code: 8480-6 BMI: 41.4 Code: 59566-6 Heart Rate 1: 78 bpm Height: 5'1" SpO2: 97% Weight: 219 lbs 11/02/2016 Blood Pressure 1: 144/72 Code: 8480-6 BMI: 46.1 Code: 01437-6 Heart Rate 1: 78 bpm Height: 5'1" SpO2: 98% Weight: 244 lbs 09/30/2016 Blood Pressure 1: 130/76 Code: 8480-6 BMI: 45.0 Code: 21030-6 Heart Rate 1: 86 bpm Height: 5'1" SpO2: 98% Weight: 238 lbs 09/10/2016 Blood Pressure 1: 136/68 Code: 8480-6 BMI: 46.3 Code: 16233-8 Heart Rate 1: 83 bpm Height: 5'1" SpO2: 98% Weight: 245 lbs 08/20/2016 Blood Pressure 1: 142/78 Code: 8480-6 BMI: 45.3 Code: 37026-0 Heart Rate 1: 84 bpm Height: 5'1" SpO2: 99% Weight: 240 lbs 06/08/2016 Blood Pressure 1: 134/76 Code: 8480-6 BMI: 44.2 Code: 41257-0 Heart Rate 1: 86 bpm Height: 5'1" SpO2: 96% Weight: 234 lbs 04/02/2016 Blood Pressure 1: 142/70 Code: 8480-6 BMI: 44.6 Code: 06191-8 Heart Rate 1: 78 bpm Height: 5'1" SpO2: 97% Weight: 236 lbs 01/14/2016 Blood Pressure 1: 146/72 Code: 8480-6 BMI: 44.2 Code: 64683-5 Heart Rate 1: 86 bpm Height: 5'1" SpO2: 96% Weight: 234 lbs 10/02/2015 Blood Pressure 1: 158/76 Code: 8480-6 BMI: 44.2 Code: 89471-9 Heart Rate 1: 67 bpm Height: 5'1" SpO2: 97% Weight: 234 lbs 07/15/2015 Blood Pressure 1: 148/78 Code: 8480-6 Blood Pressure 1: 200/90 Code: 8480-6 BMI: 44.0 Code: 07142-1 Heart Rate 1: 89 bpm Height: 5'1" SpO2: 97% Weight: 233 lbs 06/10/2015 Blood Pressure 1: 140/82 Code: 8480-6 BMI: 44.0 Code: 36296-4 Heart Rate 1: 78 bpm Height: 5'1" [...] wearing crocs and there was a new tamazight on the floor: her foot didn't move [...] Encounters Encounter Performer Loca tion Codes Date ([id number]) [id number] EST. 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 P BIANCA, LEVEL III Diagnosis: Localized edema[ICD10: R60.0] Diagnosis: Gastro-esophageal reflux disease without esophagitis[ICD10: K21.9] [facility] CPT-4: 64991 01/18/2018 ([id number]) 07808 EST. P ATIENT, LEVEL IV Diagnosis: Gastro-esophageal reflux disease without esophagitis[ICD10: K21.9] Diagnosis: Localized edema[ICD10: R60.0] Diagnosis: Essential (primary) hypertension[ICD10: I10] Diagnosis: Hypothyroidism, unspecified[ICD10: E03.9] Diagnosis: Impaired fasting glucose[ICD10: R73.01] Edna Amlanza MD, [facility] CPT-4: 43063 01/04/2018 ([id number]) 38415 EST. 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 P ATIENT, LEVEL IV Diagnosis: Essential (primary) hypertension[ICD10: I10] Diagnosis: Mixed hyperlipidemia[ICD10: E78.2] Diagnosis: Hypothyroidism, unspecified[ICD10: E03.9] Diagnosis: Impaired fasting glucose[ICD10: R73.01] Diagnosis: shelter (current) use of anticoagulants[ICD10: Z79.01] Edna Almanza MD, [facility] CPT-4: 00644 05/27/2017 [id number] EST. PATIENT, LEVEL III Diagnosis: Pain in right hip[ICD10: M25.551] Nata Almanza MD, [facility] CPT-4: 48834 02/24/2017 ([id number]) [id number] EST. P ATIENT, LEVEL IV Diagnosis: Essential (primary) hypertension[ICD10: I10] Diagnosis: Localized edema[ICD10: R60.0] Diagnosis: Pain in right hip[ICD10: M25.551] Sarai Almanza MD, [facility] CPT-4: 01885 11/02/2016 ([id number]) 31848 EST. P ATIENT, LEVEL IV Diagnosis: Essential (primary) hypertension[ICD10: I10] Diagnosis: Localized edema[ICD10: R60.0] Sarai Almanza MD, [facility] CPT-4: 89069 09/30/2016 17009 EST. PATIENT, LEVEL IV Diagnosis: Localized edema[ICD10: R60.0] Diagnosis: Pain in joints of left hand[ICD10: M25.542] Diagnosis: Pain in joints of right hand[ICD10: M25.541] Nata Almanza MD, [facility] CPT-4: 99600 09/10/2016 23078 EST. PATIENT, LEVEL IV Diagnosis: Localized edema[ICD10: R60.0] Diagnosis: Pain in joints of left hand[ICD10: M25.542] Diagnosis: Pain in joints of right hand[ICD10: M25.541] Diagnosis: Other fatigue[ICD10: R53.83] Nata Almanza MD, [facility] CPT-4: 93067 08/20/2016 [id number] EST. 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 PATIENT, LEVEL IV Diagnosis: Other allergic rhinitis[ICD10: J30.89] Diagnosis: Acute laryngopharyngitis[ICD10: J06.0] Nata Almanza MD, [facility] CPT-4: 43100 04/02/2016 [id number] EST. PATIENT, LEVEL IV Diagnosis: Left upper quadrant pain[ICD10: R10.12] Nata Almanza MD, [facility] CPT-4: 05245 01/14/2016 [id number] EST. PATIENT, LEVEL IV Diagnosis: Pain in left shoulder[ICD10: M25.512] Diagnosis: Body mass index (BMI) 40.0-44.9, adult[ICD10: Z68.41] Nata Almanza MD, [facility] CPT-4: 44142 10/02/2015 77529 EST. 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 [facility]: Essential (primary) hypertension[ICD10: I10] Diagnosis: Localized edema[ICD10: R60.0] Diagnosis: Pain in right shoulder[ICD10: M25.511] Diagnosis: Mixed hyperlipidemia[ICD10: E78.2] Diagnosis: Other custodial (current) drug therapy[ICD10: Z79.899] [facility] CPT-4: 51449 06/10/2015 ([id number]) OFFICE VISI T, BANNER - LEVEL 4 Diagnosis: ESSENTIAL HYPERTENSION[ICD9: 401.9] Diagnosis: HYPOTHYROIDISM[ICD9: 244.9] Diagnosis: ENCNTR LONG-RX USE NEC[ICD9: V58.69] Diagnosis: HYPERLIPIDEMIA[ICD9: 272.4] Diagnosis: Vitamin B12 deficiency[ICD9: 266.2] Diagnosis: Status post gastric surgery[ICD9: V45.89] Diagnosis: Snoring[ICD9: 786.09] [facility] CPT-4: 32918 01/22/2015 Plan of Care Planned Activity Notes [...] Hgb A1C 04/14/2018 Appointment: Edna Douglas WPtel: [address] [place], [place] [phone] (15 min) Moderate 04/14/2018 Patient Education: Patient [...] to further attempt to reduce peripheral edema. XKXP-axhvbxvf-fpvjtpvb prilosec BID and carafate QID -discussed low spice, low acidic diet 01/18/2018 Appointment: Edna Douglas WPtel: [phone] [place] (15 min) Moderate 01/18/2018 Patient Education: [...] control. 01/04/2018 Appointment: [phone] (30 min) Complex 01/04/2018 Patient Education: Patient Medication Summary Completed 01/04/2018 Care Plan: SCREENINGMAMMOGRAPHYDIGITAL LOINC : 60212-4 Pending 01/04/2018 Visit Plan: Abdominal hernia - not able to be taken to surgery by local providers and pt has been seen at [facility] and that surgeon felt like Kat [...] home. 09/23/2017 App[facility]ment: [phone] (15 min) Moderate 09/23/2017 Patient Education: [...] medications. 05/27/2017 Appointment: Edna Douglas WPtel: [phone] [phone] (30 min) Complex 05/27/2017 Patient Education: Patient [...] [place]. 02/24/2017 Appointment: Nata Hsu WPtel: [phone] (30 min) [...] [place]. 11/02/2016 Appointment: [facility]za [facility]Ptel[facility] [phone] [facility] (15 min) Moderate 11/02/2016 Patient Education: [...] edema. 09/30/2016 Appointment: Sarai Almanza WPtel: [phone] [facility] (15 min) Moderate 09/30/2016 Patient Education: [...] edema. 09/10/2016 Appointment: Nata Hsu WPtel: [phone] [facility] (30 min) Complex 09/10/2016 Patient Education: Patient [...] edema. 08/20/2016 Appointment: Nata Hsu WPtel: [phone] [facility] (30 min) Complex 08/20/2016 Patient Education: Patient Medication Summary Completed 08/20/2016 [facility] Referral Initiated 07/02/2016 Visit Plan: Chronic Anticoagulant [...] 06/08/2016 Care Plan: Referral Order SNOMED-CT : [id number] Pending 06/08/2016 Visit Plan: URI - [facility] (30 min) Complex 04/02/2016 Patient Education: Patient [...] pain 01/14/2016 Appointment: Edna Douglas WPtel: [phone] (30 min) Complex 01/14/2016 Patient Education: Patient Medication Summary Completed 01/14/2016 Patient Education: Obesity Completed 01/14/2016 Care Plan: BMI Above normal followup DAVID F-MGMT EDUC & TRAIN 1 PT Pending 10/24/2015 Care Plan: X-RAY EXAM OF SHOULDER LOINC : 54227-9 Pending 10/24/2015 Visit Plan: Left shoulder pain [...] check. 10/02/2015 Appointment: Edna Douglas WPtel: [phone] (15 min) [...] Completed 06/10/2015 Appointment: Sarai Almanza WPtel: [facility] (15 min) Moderate 04/22/2015 Visit Plan: [...] fixation - planning occurring at [facility]. Snoring - Sleep apnea symptoms with [...] medications. 01/22/2015 Appointment: Sarai Almanza WPtel: [facility] [place] ([place] New Patient 01/22/2015 Patient Education: Patient Medication Summary Completed 01/22/2015 Patient Education: Hypertension Completed 01/22/2015 [facility] Referral Initiated Instructions Comment . Chronic Anticoagul [...] providers and pt has been seen at [facility] and that surgeon felt like [place] would be better served by Dr. Betancur [...] to further attempt to reduce peripheral edema. PKEK-lbffzylf-zpnydvqc prilosec BID and carafate QID -discussed low [...] fixation - planning occurring at [facility]. Snoring - Sleep apnea symptoms with [...]
--- OUTSIDE RECORDS SUMMARY | 2020-01-17 00:01 | XMS REPORT | CCD ---
Author Author Kat Almanza Organization Sarai Almanza MD, [facility] Address [address] [place] [address] Phone Care Team Providers Care Bell Cleaner Name Role Phone PP Unavailable CCM Unavailable Summary Purpose Interface Exchange Insurance Providers Payer name Policy type / Coverage type Covered democrat ID Effective Begin Date Effective End Date WPS Medicare Part B Medicare Part B [id number] 2017 Unknown [employer] [place] Medicare Part B [id number] 2017 Unknown Family history Father Diagnosis Age At Onset Hyperlipidemia Unknown Heart Attack Unknown Mother Diagnosis Age At Onset Arthritis Unknown Social History Social History Element Codes Description Effective Dates Marital status Unknown M arried Nathan 09/30/2016 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 Number of children Unknown 3 01/22/[address]: 126835351 Never smoker 01/22/[address]: 466519959 Never drinks alcohol 01/22/2015 Allergies, Adverse Reactions, [...] ICD-9: 790.21 ICD-10: R73.01 Active 05/27/2017 Unknown long-term (current) use of anticoagulants ICD-9: V58.61 ICD-10: [...] Fill Instructions Carafate 1 gram tablet RxNorm: 815630 TAKE ONE TABLET BY MOUTH BEFORE MEALS AN D AT BEDTIME 04/18/2018 05/29/2018 Active Generic For:CARAFATE 1GM 9:32:51 AM Coumadin 5 mg tablet RxNorm: 400070 TAKE 1 TABLET BY MOUTH DIRECTED 03/21/2018 09/16/2018 Ac tive Generic For:COUMADIN 5MG TAB 03/21/2018 9:13:00 AM Carafate 1 gram tablet RxNorm: 943570 TAKE ONE TABLET BY MOUTH BEFORE MEALS AN D AT BEDTIME 03/21/2018 04/17/2018 Inactive Generic For:CARAFATE 1GM 1 9:14:24 AM Carafate 1 gram tablet RxNorm: 481118 1 Tablet(s) PO AC & HS 02/17/2018 03/20/2018 Inactive atenolol 100 mg tablet RxNorm: 394647 1 Tablet(s) PO daily 02/04/2018 09/01/2018 Active atenolol 50 mg tablet RxNorm: 248732 1 Tablet(s) PO daily 02/03/2018 02/03/2018 Inactive omeprazole 20 mg cap sean,delayed release RxNorm: 495889 1 Capsule(s) BID 01/21/2018 01/15/2019 Ac tive Generic For:PRILOSEC 20MG 07/22/2017 8:5 8:20 AM Carafate 1 gram tablet RxNorm: 548197 1 Tablet(s) PO AC & HS 01/21/2018 02/16/2018 Inactive Carafate 1 gram tablet RxNorm: 084207 1 Tablet(s) PO AC & HS TAKE ONE TABLET B Y MOUTH TWICE DAILY 01/18/2018 02/14/2018 Inactive Generic For:CARAFATE 1GM 0 12/20/2017 9:10:56 AM Carafate 1 gram tablet RxNorm: 731399 1 Tablet(s) PO AC & HS 01/18/2018 01/20/2018 Inactive Carafate 1 gram tablet RxNorm: 324405 1 Tablet(s) PO AC & HS 01/18/2018 02/27/2018 Inactive omeprazole 20 mg cap sean,delayed release RxNorm: 871411 Capsule(s) TAKE 1 CAP SEAN BY MOUTH EVERY DAY 01/17/2018 01/20/2018 Inactive Generic For:PRILOSEC 20MG 0 07/22/2017 8:58:20 AM omeprazole 20 mg cap sean,delayed release RxNorm: 039059 Capsule(s) TAKE 1 CAP SEAN BY MOUTH EVERY DAY 01/14/2018 01/16/2018 Inactive Generic For:PRILOSEC 20MG 07/22/2017 8:58:20 AM clonazepam 0.5 mg ta blet RxNorm: 453136 1 Tablet(s) PO BID 01/07/2018 06/05/2018 Active Plavix 75 mg tablet RxNorm: 459005 1 Tablet(s) PO daily 01/07/2018 07/05/2018 Active Carafate 1 gram tablet RxNorm: 776489 1 Tablet(s) PO AC & HS 01/04/2018 01/17/2018 Inactive Lasix 20 mg tablet RxNorm: 529071 TAKE ONE TABLET BY MOUTH DAILY 12/20/2017 04/18/2018 In active Generic For:LASIX 20MG 12/20/2017 9:11: 03 AM sodium bicarbonate 6 50 mg tablet RxNorm: 856526 TAKE 2 TABLETS BY JAVON TH TWICE DAILY 12/20/2017 06/17/2018 Ac tive 12/20/2017 9:10:59 AM Carafate 1 gram tablet RxNorm: 093664 TAKE ONE TABLET BY MOUTH TWICE DAILY 12/20/2017 01/17/2018 In active Generic For:CARAFATE 1GM 12/20/2017 9:1 0:56 AM Synthroid 137 mcg ta blet RxNorm: 686083 TAKE 1 TABLET BY MOUT H ONCE DAILY 11/19/2017 05/17/2018 Ac tive Generic For:SYNTHROID 137MCG TAB 2017 8:58:04 AM allopurinol 300 mg t ablet RxNorm: 630067 TAKE 1 TABLET BY MOUT H ONCE DAILY. 10/20/2017 04/17/2018 In active Generic For:ZYLOPRIM 300 MG TABLET 07/2017 9:01:59 AM Detrol LA 4 mg capsu le,extended release RxNorm: 080567 TAKE 1 CAPSULE BY JAVON TH ONCE DAILY 10/20/2017 04/13/2018 Inactive Generic For:DETROL LA 4MG C AP 10/20/2017 9:01:56 AM Coumadin 5 mg tablet RxNorm: 008927 1 Tablet(s) PO UD 10/01/2017 03/20/2018 Inactive cyclobenzaprine 5 mg tablet RxNorm: 837629 1 Tablet(s) PO TID as needed myscle spasm 09/23/2017 10/12/2017 Inactive Lipitor 40 mg tablet RxNorm: 195308 TAKE 1 TABLET BY MOUTH ONCE DAILY 09/20/2017 09/14/2018 Ac tive Generic For:LIPITOR 40MG 09/20/2017 8:5 6:04 AM atenolol 100 mg tablet RxNorm: 504318 1 Tablet(s) PO daily 08/30/2017 02/03/2018 Inactive atenolol 50 mg tablet RxNorm: 610783 1 Tablet(s) PO daily 08/30/2017 08/30/2017 Inactive Lovenox 30 mg/0.3 mL subcutaneous syringe RxNorm: 247895 0.3 Milliliter(s) SQ Q12H 08/24/2017 09/06/2017 In active Lasix 20 mg tablet RxNorm: 510679 TAKE ONE TABLET BY MOUTH DAILY 08/23/2017 12/19/2017 In active Generic For:LASIX 20MG 08/21/2017 9:04: 27 AM Synthroid 137 mcg ta blet RxNorm: 735025 TAKE 1 TABLET BY MOUT H ONCE DAILY 08/23/2017 11/18/2017 In active Generic For:SYNTHROID 137MCG TAB 2017 9:04:30 AM Lovenox 30 mg/0.3 mL subcutaneous syringe RxNorm: 427426 0.3 Milliliter(s) SQ Q12H 08/10/2017 08/23/2017 In active clonazepam 0.5 mg ta blet RxNorm: 188820 1 Tablet(s) PO BID 08/04/2017 12/30/2017 Inactive Coumadin 4 mg tablet RxNorm: 627609 TAKE 1 TABLET BY MOUTH THREE TIMES PER W CHILKAT (WEDNESDAY, WEDNESDAY AND WEDNESDAY) 07/22/2017 02/16/2018 Inactive Generic For:COUMADIN 4MG 07/22/2017 8:58:26 AM Coumadin 4 mg tablet RxNorm: 989504 TAKE 1 TABLET BY MOUTH THREE TIMES PER W CHILKAT (WEDNESDAY, WEDNESDAY AND WEDNESDAY) 07/22/2017 02/16/2018 Inactive Generic For:COUMADIN 4MG 07/22/2017 8:58:26 AM omeprazole 20 mg cap sean,delayed release RxNorm: 755438 TAKE 1 CAPSULE BY JAVON TH EVERY DAY 07/22/2017 01/13/2018 Inactive Generic For:PRILOSEC 20MG 07/22/2017 8: 58:20 AM venlafaxine ER 75 mg capsule,extended release 24 hr RxNorm: 625962 TAKE 1 CAPSULE BY MOUTH ONCE DAILY 06/22/2017 06/16/2018 Active Generic For:*EFFEXOR XR 75MG 06/19/2017 12:23:45 PM sodium bicarbonate 6 50 mg tablet RxNorm: 759986 TAKE 2 TABLETS BY JAVON TH TWICE DAILY 06/22/2017 12/18/2017 In active 06/19/2017 12:23:30 PM Coumadin 5 mg tablet RxNorm: 670771 1 Tablet(s) PO UD 06/01/2017 09/30/2017 Inactive Keflex 500 mg capsule RxNorm: 909936 1 Capsule(s) PO TID 05/27/2017 06/02/2017 Inactive spironolactone 25 mg tablet RxNorm: 030375 1 Tablet(s) PO daily 05/24/2017 05/18/2018 Active Synthroid 137 mcg ta blet RxNorm: 775489 TAKE 1 TABLET BY MOUT H ONCE DAILY 05/24/2017 08/21/2017 In active Generic For:SYNTHROID 137MCG TAB 2016 8:55:59 AM Carafate 1 gram tablet RxNorm: 648262 TAKE ONE TABLET BY MOUTH TWICE DAILY 05/24/2017 12/19/2017 In active Generic For:CARAFATE 1GM 05/24/2017 8:5 5:54 AM Detrol LA 4 mg capsu le,extended release RxNorm: 506983 1 Capsule(s) PO daily TAKE 1 CAPSULE BY MOUTH ONCE DAILY 05/10/2017 10/19/2017 Inactive Generic For:DETROL LA 4MG CAP 02/19/2017 2:36:00 PM Lasix 20 mg tablet RxNorm: 176926 TAKE ONE TABLET BY MOUTH DAILY 04/23/2017 08/20/2017 In active Generic For:LASIX 20MG 04/23/2017 9:04: 01 AM Coumadin 4 mg tablet RxNorm: 950654 TAKE 1 TABLET BY MOUTH THREE TIMES PER W CHILKAT (WEDNESDAY, WEDNESDAY AND WEDNESDAY) 04/23/2017 07/21/2017 Inactive Generic For:COUMADIN 4MG 04/23/2017 9:04:05 AM allopurinol 300 mg t ablet RxNorm: 332498 TAKE 1 TABLET BY MOUT H ONCE DAILY. 04/23/2017 10/19/2017 In active Generic For:ZYLOPRIM 300 MG TABLET 08/2016 9:03:57 AM potassium chloride 2 0 mEq/15 mL oral liquid RxNorm: 879629 Milliliter(s) 30 Milliliter(s) (40mEq) PO daily 03/24/2017 07/21/2017 Inactive Lovenox 30 mg/0.3 mL subcutaneous syringe RxNorm: 017246 0.3 Milliliter(s) SQ Q12H 03/22/2017 03/26/2017 In active Lovenox 30 mg/0.3 mL subcutaneous syringe RxNorm: 857246 0.3 Milliliter(s) SQ Q12H 03/19/2017 03/20/2017 In active Lovenox 30 mg/0.3 mL subcutaneous syringe RxNorm: 288647 0.3 Milliliter(s) SQ Q12H 03/16/2017 03/18/2017 In active clonazepam 0.5 mg ta blet RxNorm: 219402 1 Tablet(s) PO BID 03/02/2017 07/28/2017 Inactive Lovenox 30 mg/0.3 mL subcutaneous syringe RxNorm: 080277 1 injection SQ BID do NOT take the night time dose the day before surgery, or the morning dose the day of surgery 03/01/2017 03/07/2017 Inactive Lovenox 30 mg/0.3 mL subcutaneous syringe RxNorm: 105279 1 injection SQ BID 03/01/2017 02/28/2017 In active Detrol LA 4 mg capsu le,extended release RxNorm: 366625 TAKE 1 CAPSULE BY JAVON TH ONCE DAILY 02/19/2017 05/09/2017 Inactive Generic For:DETROL LA 4MG C AP 02/19/2017 2:36:00 PM hydrocodone 5 mg-humberto taminophen 325 mg tablet RxNorm: 036542 1-2 Tablet(s) PO Q6 P RN 02/04/2017 No Stop Date Active Zetia 10 mg tablet RxNorm: 319668 TAKE 1 TABLET BY MOUTH DAILY 01/25/2017 04/13/2018 Inactive 01/23/2017 9:03:48 AM omeprazole 20 mg cap sean,delayed release RxNorm: 676460 TAKE 1 CAPSULE BY JAVON TH EVERY DAY 01/25/2017 07/21/2017 Inactive Generic For:PRILOSEC 20MG 01/23/2017 9: 03:45 AM Coumadin 4 mg tablet RxNorm: 742665 TAKE 1 TABLET BY MOUTH THREE TIMES PER W CHILKAT (WEDNESDAY, WEDNESDAY AND WEDNESDAY) 01/25/2017 04/22/2017 Inactive Generic For:COUMADIN 4MG 01/23/2017 9:03:51 AM sodium bicarbonate 6 50 mg tablet RxNorm: 802516 TAKE 2 TABLETS BY JAVON TH TWICE DAILY 12/24/2016 06/21/2017 In active 12/24/2016 9:09:27 AM Lasix 20 mg tablet RxNorm: 197418 1 Tablet(s) PO daily 12/24/2016 04/22/2017 Inactive Synthroid 137 mcg ta blet RxNorm: 969997 TAKE 1 TABLET BY MOUT H ONCE DAILY 11/24/2016 05/22/2017 In active Generic For:SYNTHROID 137MCG TAB 2016 9:04:37 AM Coumadin 4 mg tablet RxNorm: 906886 TAKE 1 TABLET BY MOUTH THREE TIMES PER W CHILKAT (WEDNESDAY, WEDNESDAY AND WEDNESDAY) 11/24/2016 01/22/2017 Inactive Generic For:COUMADIN 4MG 11/24/2016 9:04:41 AM hydrocodone 5 mg-humberto taminophen 325 mg tablet RxNorm: 803387 1-2 Tablet(s) PO Q6 P RN 11/17/2016 02/03/2017 In active Carafate 1 gram tablet RxNorm: 330703 TAKE ONE TABLET BY MOUTH TWICE DAILY 10/27/2016 05/23/2017 In active Generic For:CARAFATE 1GM 10/26/2016 8:3 9:42 AM allopurinol 300 mg t ablet RxNorm: 170107 Tablet(s) TAKE 1 TABL ET BY MOUTH ONCE DAILY. 10/26/2016 04/22/2017 Inactive Lipitor 40 mg tablet RxNorm: 668144 1 Tablet(s) PO daily 09/25/2016 09/19/2017 Inactive Coumadin 4 mg tablet RxNorm: 939961 TAKE 1 TABLET BY MOUTH THREE TIMES PER W CHILKAT (WEDNESDAY, WEDNESDAY AND WEDNESDAY) 09/25/2016 11/23/2016 Inactive Generic For:COUMADIN 4MG 09/25/2016 8:55:58 AM Zetia 10 mg tablet RxNorm: 879967 1 Tablet(s) PO daily 09/25/2016 01/22/2017 Inactive gave 1 month of samples clonazepam 0.5 mg ta blet RxNorm: 000861 1 Tablet(s) PO BID 09/21/2016 02/16/2017 Inactive Lasix 20 mg tablet RxNorm: 653190 1 Tablet(s) PO daily 09/15/2016 12/23/2016 Inactive potassium chloride 2 0 mEq/15 mL oral liquid RxNorm: 803440 Milliliter(s) 30 Milliliter(s) (40mEq) PO daily 09/15/2016 01/12/2017 Inactive Lasix 20 mg tablet RxNorm: 928070 2 Tablet(s) PO daily 09/10/2016 09/12/2016 Inactive Lasix 20 mg tablet RxNorm: 797309 1 Tablet(s) PO daily 08/28/2016 08/30/2016 Inactive Lasix 20 mg tablet RxNorm: 964374 1 Tablet(s) PO daily 08/20/2016 08/22/2016 Inactive Detrol LA 4 mg capsu le,extended release RxNorm: 106705 TAKE 1 CAPSULE BY JAVON TH ONCE DAILY 07/27/2016 02/18/2017 Inactive Generic For:DETROL LA 4MG C AP 07/27/2016 9:08:27 AM Coumadin 4 mg tablet RxNorm: 076980 1 Tablet(s) PO 3 x week tue thur and sun 07/27/2016 09/24/2016 In active omeprazole 20 mg cap sean,delayed release RxNorm: 466078 Capsule(s) PO TAKE 1 CAPSULE BY MOUTH ONCE DAILY 07/27/2016 01/22/2017 Inactive venlafaxine ER 75 mg capsule,extended release 24 hr RxNorm: 154040 1 Capsule(s) PO daily 06/29/2016 06/21/2017 Inactive sodium bicarbonate 6 50 mg tablet RxNorm: 393641 TAKE 2 TABLETS BY JAVON TH TWICE DAILY 06/29/2016 12/23/2016 In active 06/27/2016 9:05:39 AM Coumadin 4 mg tablet RxNorm: 558875 1 Tablet(s) PO 3 x week tue thur and sun 06/09/2016 06/08/2016 In active Coumadin 4 mg tablet RxNorm: 207762 1 Tablet(s) PO 3 x week e thur and sun 06/09/2016 07/26/2016 In active Zetia 10 mg tablet RxNorm: 017090 1 Tablet(s) PO daily 06/09/2016 06/08/2016 Inactive gave 1 month of samples Zetia 10 mg tablet RxNorm: 877771 1 Tablet(s) PO daily 06/09/2016 09/24/2016 Inactive gave 1 month of samples Effexor 75 mg tablet RxNorm: 973447 1 Tablet(s) PO daily 06/08/2016 06/28/2016 Inactive spironolactone 25 mg tablet RxNorm: 390711 1 Tablet(s) PO daily 06/08/2016 05/23/2017 Inactive Synthroid 137 mcg ta blet RxNorm: 387995 1 Tablet(s) PO daily 05/07/2016 11/02/2016 Inactive allopurinol 300 mg t ablet RxNorm: 452217 Tablet(s) TAKE 1 TABL ET BY MOUTH ONCE DAILY. 04/28/2016 10/24/2016 Inactive clonazepam 0.5 mg ta blet RxNorm: 438804 1 Tablet(s) PO BID 04/20/2016 09/15/2016 Inactive Flonase Allergy Reli ef 50 mcg/actuation nasal spray,suspension RxNorm: 5490870 1 [place] NASAL BID 04/02/2016 No Stop Date Active Zithromax Z-Thomas 250 mg tablet RxNorm: 059016 Tablet(s) PO 04/02/2016 08/27/2016 Inactive cetirizine 10 mg tablet RxNorm: 5640322 1 Tablet(s) PO daily 04/02/2016 05/01/2016 Inactive Carafate 1 gram tablet RxNorm: 933334 Tablet(s) TAKE 1 TABLET TWICE A DAY FOR 30 DAYS 03/30/2016 10/25/2016 Inactive Generic For:CARAFATE 1GM 02/08/2015 12:3 6:39 PM Plavix 75 mg tablet RxNorm: 615983 1 Tablet(s) PO daily 03/11/2016 09/06/2016 Inactive sodium bicarbonate 6 50 mg tablet RxNorm: 658811 Tablet(s) 2 Tablet(s) PO BID 02/28/2016 06/26/2016 In active omeprazole 20 mg cap sean,delayed release RxNorm: 501973 Capsule(s) PO TAKE 1 CAPSULE BY MOUTH ONCE DAILY 01/31/2016 07/26/2016 Inactive Fish Oil 1,000 mg ca psule RxNorm: 1 Capsule(s) PO BID 01/14/2016 No Stop Date Active Synthroid 137 mcg ta blet RxNorm: 423740 1 Tablet(s) PO daily 01/14/2016 05/06/2016 Inactive Detrol LA 4 mg capsu le,extended release RxNorm: 511746 TAKE 1 CAPSULE BY JAVON TH ONCE DAILY 12/30/2015 07/26/2016 Inactive Generic For:DETROL LA 4MG C AP 12/30/2015 9:11:01 AM potassium chloride 2 0 mEq/15 mL oral liquid RxNorm: 281305 Milliliter(s) 30 Milliliter(s) (40mEq) PO daily 12/02/2015 03/30/2016 Inactive sodium bicarbonate 6 50 mg tablet RxNorm: 926759 Tablet(s) 2 Tablet(s) PO BID 10/31/2015 02/27/2016 In active Lipitor 40 mg tablet RxNorm: 422526 1 Tablet(s) PO daily 10/09/2015 09/24/2016 Inactive sodium bicarbonate 6 50 mg tablet RxNorm: 735498 2 Tablet(s) PO BID 10/01/2015 10/30/2015 Inactive allopurinol 300 mg t ablet RxNorm: 662350 TAKE 1 TABLET BY MOUT H ONCE DAILY. 10/01/2015 04/27/2016 In active Generic For:ZYLOPRIM 300 MG TABLET 09/19 9:21:15 AM clonazepam 0.5 mg ta blet RxNorm: 349194 1 Tablet(s) PO BID 09/30/2015 04/19/2016 Inactive Coumadin 5 mg tablet RxNorm: 725789 1 Tablet(s) PO daily 09/27/2015 05/31/2017 Inactive Generic For:COUMADIN 5MG TAB N O T I C E PRESCRIPTION PREVIOUSLY AUTHORIZED BY DOCTOR:BOBBY ZULETA Synthroid 125 mcg ta blet RxNorm: 654768 1 Tablet(s) PO daily 09/27/2015 09/26/2015 Inactive Synthroid 125 mcg ta blet RxNorm: 879006 1 Tablet(s) PO daily 09/27/2015 01/13/2016 Inactive Carafate 1 gram tablet RxNorm: 525807 Tablet(s) TAKE 1 TABLET TWICE A DAY FOR 30 DAYS 09/02/2015 03/29/2016 Inactive Generic For:CARAFATE 1GM 02/08/2015 12:3 6:39 PM sodium bicarbonate 6 50 mg tablet RxNorm: 165300 2 Tablet(s) PO BID 09/02/2015 09/30/2015 Inactive Prilosec 20 mg capsu le,delayed release RxNorm: 356532 TAKE 1 CAPSULE BY JAVON TH ONCE DAILY 08/02/2015 01/28/2016 Inactive Generic For:PRILOSEC 20MG 08/02/2015 10:03:09 AM N O T I C E PRESCRIPTION PREVIOUSLY AUTHORIZED BY DOCTOR:BOBBY ZULETA Zyrtec 10 mg capsule RxNorm: 1357681 1 Capsule(s) PO daily 07/15/2015 08/13/2015 Inactive Keflex 500 mg capsule RxNorm: 479535 1 Capsule(s) PO TID 07/15/2015 07/21/2015 Inactive cetirizine 10 mg cap sean RxNorm: 7888033 1 Capsule(s) PO daily 07/15/2015 08/13/2015 Inactive hydrocodone 5 mg-humberto taminophen 325 mg tablet RxNorm: 961061 1-2 Tablet(s) PO Q6 P RN 06/10/2015 11/16/2016 In active sodium bicarbonate 6 50 mg tablet RxNorm: 137875 2 Tablet(s) PO BID 06/03/2015 08/31/2015 Inactive Detrol LA 4 mg capsu le,extended release RxNorm: 256932 TAKE 1 CAPSULE BY JAVON TH ONCE DAILY 06/03/2015 12/29/2015 Inactive Generic For:DETROL LA 4MG C AP N O T I C E PRESCRIPTION PREVIOUSLY AUTHORIZED BY DOCTOR:BOBBY ZULETA atenolol 50 mg tablet RxNorm: 003609 1 Tablet(s) PO daily TAKE 1 TABLET BY MO UTH DAILY 05/07/2015 08/23/2017 Inactive Generic For:TENORMIN 50MG 05/04/2015 9:07:22 AM spironolactone 25 mg tablet RxNorm: 813018 1 Tablet(s) PO daily 05/06/2015 06/07/2016 Inactive venlafaxine ER 75 mg capsule,extended release 24 hr RxNorm: 032663 1 Capsule(s) PO daily 05/04/2015 06/28/2016 Inactive atenolol 50 mg tablet RxNorm: 214480 TAKE 1 TABLET BY MOUTH DAILY 05/04/2015 05/06/2015 Inactive Generic For:TENORMIN 50MG 05/04/2015 9: 07:22 AM Synthroid 150 mcg ta blet RxNorm: 968763 TAKE 1 TABLET BY MOUT H ONCE DAILY. 04/05/2015 09/26/2015 In active Generic For:SYNTHROID 150MCG TAB 2014 4:45:40 PM N O T I C E PRESCRIPTION PREVIOUSLY AUTHORIZED BY DOCTOR:BOBBY ZULETA Effexor 75 mg tablet RxNorm: 657989 1 Tablet(s) PO daily 04/05/2015 07/03/2015 Inactive Coumadin 5 mg tablet RxNorm: 670373 TAKE 1 AND 1/2 TABLETS BY MOUTH ONCE MYRANDA LY 04/04/2015 09/26/2015 In active Generic For:COUMADIN 5MG TAB N O T I C E PRESCRIPTION PREVIOUSLY AUTHORIZED BY DOCTOR:BOBBY ZULETA clonazepam 0.5 mg ta blet RxNorm: 591400 1 Tablet(s) PO BID 03/13/2015 11/05/2015 Inactive sodium bicarbonate 6 50 mg tablet RxNorm: 621875 2 Tablet(s) PO BID 03/08/2015 06/02/2015 Inactive allopurinol 300 mg t ablet RxNorm: 407936 TAKE 1 TABLET BY MOUT H ONCE DAILY. 03/05/2015 09/30/2015 In active N O T I C E PRESCRIPTION PREVIOUSLY A UTHORIZED BY DOCTOR:BOBBY ZULETA Plavix 75 mg tablet RxNorm: 634323 1 Tablet(s) PO daily 02/12/2015 09/09/2015 Inactive clonazepam 0.5 mg ta blet RxNorm: 898533 1 Tablet(s) PO BID 02/11/2015 03/11/2015 Inactive Carafate 1 gram tablet RxNorm: 299074 TAKE 1 TABLET TWICE A DAY FOR 30 DAYS 02/08/2015 02/07/2015 In active Generic For:CARAFATE 1GM 02/08/2015 12:3 6:39 PM Carafate 1 gram tablet RxNorm: 365267 Tablet(s) TAKE 1 TABLET TWICE A DAY FOR 30 DAYS 02/08/2015 09/01/2015 Inactive Generic For:CARAFATE 1GM 02/08/2015 12:3 6:39 PM potassium chloride 2 0 mEq/15 mL oral liquid RxNorm: 103486 30 Milliliter(s) (40m Eq) PO daily 02/05/2015 12/01/2015 Inactive atenolol 50 mg tablet RxNorm: 549841 1 Tablet(s) PO daily 02/04/2015 05/03/2015 Inactive [SAVINGS FOR NON-COVERED DRUGS -- BIN:00 9722, PCN: [id number], Group: XXXXX, ID# XXXXXXX, Questions: . THIS IS NOT INSURANCE.] potassium chloride 2 0 mEq/15 mL oral liquid RxNorm: 898998 30 Milliliter(s) (40m Eq) PO daily 01/08/2015 02/04/2015 Inactive potassium chloride 2 0 mEq/15 mL oral liquid RxNorm: 282752 30 Milliliter(s) (40m Eq) PO daily 12/07/2014 01/07/2015 Inactive atenolol 50 mg tablet RxNorm: 024639 1 Tablet(s) PO daily 11/09/2014 11/08/2014 Inactive atenolol 50 mg tablet RxNorm: 402187 1 Tablet(s) PO daily 11/09/2014 02/03/2015 Inactive [SAVINGS FOR NON-COVERED DRUGS -- BIN:00 4842, PCN: ASPROD1, Group: XXXXX, ID# [id number], Questions: . THIS IS NOT INSURANCE.] Voltaren 1 % topical gel RxNorm: 834476 TOP No St art Date Active verapamil ER (HS) 24 0 mg tablet,extended release 24 hr RxNorm: 621773 1 Tablet(s) PO daily No Start Date Active aspirin 81 mg tablet RxNorm: 918681 1 Tablet(s) PO daily No Start Date Active Zofran 4 mg tablet RxNorm: 225448 1 Tablet(s) PO PRN No Start Date Active B12 1000 mcg RxNorm: 1 Tablet(s) PO daily No Start Date Active magnesium oxide 400 mg capsule RxNorm: 908037 2 Capsule(s) PO BID No Start Date Active Synthroid 150 mcg ta blet RxNorm: 887048 1 Tablet(s) PO daily No Start Date 04/04/2015 Inactive Coumadin 5 mg tablet RxNorm: 387495 1 Tablet(s) PO daily No Start Date 04/03/2015 Inactive cranberry 1,000 mg c apsule RxNorm: 394944 1 Capsule(s) PO daily No Start Date 04/13/2018 Inactive allopurinol 300 mg t ablet RxNorm: 653138 1 Tablet(s) PO daily No Start Date 03/04/2015 Inactive Prilosec 20 mg capsu le,delayed release RxNorm: 245619 1 Capsule(s) PO PRN No Start Date 08/01/2015 Inactive potassium chloride 2 0 mEq/15 mL oral liquid RxNorm: 634674 30 Milliliter(s) (40m Eq) PO daily No Start Date 12/06/2014 Inactive atenolol 50 mg tablet RxNorm: 428739 1 Tablet(s) PO daily No Start Date 08/29/2017 Inactive Lipitor 40 mg tablet RxNorm: 430529 1 Tablet(s) PO daily No Start Date 09/19/2017 Inactive Effexor 75 mg tablet RxNorm: 313956 1 Tablet(s) PO daily No Start Date 04/04/2015 Inactive Carafate 1 gram tablet RxNorm: 580121 1 Tablet(s) PO BID No Start Date 02/07/2015 Inactive clonazepam 0.5 mg ta blet RxNorm: 473766 1 Tablet(s) PO BID No Start Date 02/10/2015 Inactive Plavix 75 mg tablet RxNorm: 197406 1 Tablet(s) PO daily No Start Date 02/11/2015 Inactive sodium bicarbonate 6 50 mg tablet RxNorm: 177961 2 Tablet(s) PO BID No Start Date 09/01/2015 Inactive Lovenox 30 mg/0.3 mL subcutaneous syringe RxNorm: 626280 0.3 Milliliter(s) SQ Q12H No Start Date 03/15/2017 Inactive Fish Oil 1,000 mg ca psule RxNorm: 1 Capsule(s) PO daily No Start Date 01/13/2016 Inactive Detrol LA 4 mg capsu le,extended release RxNorm: 338896 1 Capsule(s) PO daily No Start Date [...] fatigue ICD-10: R53.83 ICD-9: 780.79 08/20/2016 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 ICD-10: Z79.899 ICD-9: [...] Item Item Code Result Date Free T4 [id number] FREE T4 1.09 ng/dL 04/14/2018 Tsh Ord6 TSH (3rd IS) 2.36 uIU/mL 04/14/2018 Pt [id number] PT 20.3 seconds 04/14/2018 Pt Sff8240 INR 1.8 04/14/2018 Pt Nmj4132 Low Intensity - 1.5-2.0 04/14/2018 Pt Pss3727 Mod intensity - 2.0-3.0 04/14/2018 Pt Rwm5522 Hi intensity - 3.0-4.0 04/14/2018 Lipid Ord30 CHOL 149 mg/dL 04/14/2018 Lipid Ord30 HDL 49.0 mg/dl 04/14/2018 Lipid Ord30 TRIG 161 mg/dL 04/14/2018 Lipid Ord30 LDL 68 mg/dL 04/14/2018 Lipid Ord30 C/HDL 3.0 Ratio 04/14/2018 %Hba1C Ruo107 % HbA1c 41815-5 5.9 % 04/14/2018 %Hba1C Hdj198 Gluc Ave 123 mg/dL 04/14/2018 Comp Metabolic Iif810 NA 140 mEq/L 04/14/2018 Comp Metabolic Vkj254 K 4.1 mEq/L 04/14/2018 Comp Metabolic Osw292 CL 105 mEq/L 04/14/2018 Comp Metabolic Ars037 CO2 28.0 mEq/L 04/14/2018 Comp Metabolic Phg226 AN ION GAP 11 04/14/2018 Comp Metabolic Zxn183 GL UCOSE 112 mg/dL 04/14/2018 Comp Metabolic Oep021 Cr eat 1.0 mg/dL 04/14/2018 Comp Metabolic Ydo454 eG FR 58 ml/min/1.73m2 04/14 Comp Metabolic Tlr226 BUN 20 mg/dL 04/14/2018 Comp Metabolic Uns379 B/ C Ratio 20.2 Ratio 04/14/2018 Comp Metabolic Yhf185 CA LCIUM 10.0 mg/dL 04/14/2018 Comp Metabolic Pct921 AL K PHOS 51 U/L 04/14/2018 Comp Metabolic Zkp344 T(SGOT) 24 U/L 04/14/2018 Comp Metabolic Vmz118 AL T(SGPT) 21 U/L 04/14/2018 Comp Metabolic Dox322 BI LI T 0.8 mg/dL 04/14/2018 Comp Metabolic Cgk557 AL BUMIN 4.2 g/dL 04/14/2018 Comp Metabolic Yjm789 TP RO 7.1 g/dL 04/14/2018 Comp Metabolic Ktx238 GL OB 2.9 g/dL 04/14/2018 Comp Metabolic Axh699 A/ G Ratio 1.5 Ratio 04/14/2018 Comp Metabolic Jvv004 Os mo 283 mOsmo 04/14/2018 Cbc With [...] 30.7 pg 04/14/2018 Cbc With Differential Ord2 Lucas% 10.6 % 04/14/2018 Cbc With Differential Ord2 [...] 1.18 K/ul 04/14/2018 Cbc With Differential Ord2 Lucas ABS# 0.5 K/ul 04/14/2018 Cbc With Differential Ord2 Eos ABS# 0.2 K/ul 04/14/2018 Cbc With Differential Ord2 Baso ABS# 0.1 K/ul 04/14/2018 Pt [id number] PT 29.3 seconds 02/11/2018 Pt [id number] INR 2.8 02/11/2018 Pt [id number] Low Intensity - 1.5-2.0 02/11/2018 Pt Rvd4747 Mod intensity - 2.0-3.0 02/11/2018 Pt [id number] Hi intensity - 3.0-4.0 02/11/2018 Comp Metabolic Qqu472 NA 141 mEq/L 01/05/2018 Comp Metabolic Roq528 K 3.7 mEq/L 01/05/2018 Comp Metabolic Pzp369 CL 102 mEq/L 01/05/2018 Comp Metabolic Xss976 CO2 29.0 mEq/L 01/05/2018 Comp Metabolic Yml857 AN ION GAP 14 01/05/2018 Comp Metabolic Pfs800 GL UCOSE 136 mg/dL 01/05/2018 Comp Metabolic Jrg993 Cr eat 1.0 mg/dL 01/05/2018 Comp Metabolic Rmc266 eG FR 61 ml/min/1.73m2 01/05 Comp Metabolic Yar656 BUN 22 mg/dL 01/05/2018 Comp Metabolic Lfg299 B/ C Ratio 22.9 Ratio 01/05/2018 Comp Metabolic Uzs195 CA LCIUM 9.7 mg/dL 01/05/2018 Comp Metabolic Fuz871 AL K PHOS 57 U/L 01/05/2018 Comp Metabolic Ata371 T(SGOT) 21 U/L 01/05/2018 Comp Metabolic Hxh306 AL T(SGPT) 19 U/L 01/05/2018 Comp Metabolic Trj074 BI LI T 0.9 mg/dL 01/05/2018 Comp Metabolic Jry817 AL BUMIN 4.1 g/dL 01/05/2018 Comp Metabolic Uya287 TP RO 7.1 g/dL 01/05/2018 Comp Metabolic Ixe559 GL OB 3.0 g/dL 01/05/2018 Comp Metabolic Ouy716 A/ G Ratio 1.4 Ratio 01/05/2018 Comp Metabolic Gee643 Os mo 287 mOsmo 01/05/2018 Free T4 Zxm906 FREE T4 1.05 ng/dL 01/05/2018 %Hba1C Xdh681 % HbA1c 34642-9 6.0 % 01/05/2018 %Hba1C Xtf338 Gluc Ave 126 mg/dL 01/05/2018 Cbc With [...] 27.3 % 01/05/2018 Cbc With Differential Ord2 Lucas% 10.5 % 01/05/2018 Cbc With Differential Ord2 [...] 1.27 K/ul 01/05/2018 Cbc With Differential Ord2 Lucas ABS# 0.5 K/ul 01/05/2018 Cbc With Differential Ord2 Eos ABS# 0.2 K/ul 01/05/2018 Cbc With Differential Ord2 Baso ABS# 0.1 K/ul 01/05/2018 Pt Lao9040 PT 20.7 seconds 01/05/2018 Pt Tds0845 INR 1.8 01/05/2018 Pt Gps6854 Low Intensity - 1.5-2.0 01/05/2018 Pt Sdz0202 Mod intensity - 2.0-3.0 01/05/2018 Pt Tgv8095 Hi intensity - 3.0-4.0 01/05/2018 Tsh Ord6 TSH (3rd IS) 2.34 uIU/mL 01/05/2018 Lipid Ord30 CHOL 156 mg/dL 01/05/2018 Lipid Ord30 HDL 48.0 mg/dl 01/05/2018 Lipid Ord30 TRIG 207 mg/dL 01/05/2018 Lipid Ord30 LDL 67 mg/dL 01/05/2018 Lipid Ord30 C/HDL 3.3 Ratio 01/05/2018 Pt Cuu4375 PT 28.3 seconds 11/26/2017 Pt Anu0344 INR 2.6 11/26/2017 Pt Fit3396 Low Intensity - 1.5-2.0 11/26/2017 Pt Ury8543 Mod intensity - 2.0-3.0 11/26/2017 Pt Apq6847 Hi intensity - 3.0-4.0 11/26/2017 Pt Gnn3133 PT 36.5 seconds 11/19/2017 Pt Joz8273 INR 3.6 11/19/2017 Pt Nik2438 Low Intensity - 1.5-2.0 11/19/2017 Pt Ahy2645 Mod intensity - 2.0-3.0 11/19/2017 Pt Wir0957 Hi intensity - 3.0-4.0 11/19/2017 Pt Euw9534 PT 22.9 seconds 10/15/2017 Pt Lzd8475 INR 2.0 10/15/2017 Pt Bur0390 Low Intensity - 1.5-2.0 10/15/2017 Pt Eqk0316 Mod intensity - 2.0-3.0 10/15/2017 Pt Ute1415 Hi intensity - 3.0-4.0 10/15/2017 Pt Hoa2085 PT 25.9 seconds 10/01/2017 Pt Mul5223 INR 2.4 10/01/2017 Pt Wda9400 Low Intensity - 1.5-2.0 10/01/2017 Pt Oyb9497 Mod intensity - 2.0-3.0 10/01/2017 Pt Bfq2548 Hi intensity - 3.0-4.0 10/01/2017 Pt Sgt9437 PT 20.6 seconds 09/24/2017 Pt Lxl2000 INR 1.8 09/24/2017 Pt Qyt3588 Low Intensity - 1.5-2.0 09/24/2017 Pt Nal9862 Mod intensity - 2.0-3.0 09/24/2017 Pt Zxz2323 Hi intensity - 3.0-4.0 09/24/2017 Pt Num3016 PT 21.0 seconds 09/15/2017 Pt Tob1266 INR 1.8 09/15/2017 Pt Atj7393 Low Intensity - 1.5-2.0 09/15/2017 Pt Kte8323 Mod intensity - 2.0-3.0 09/15/2017 Pt Upf8218 Hi intensity - 3.0-4.0 09/15/2017 Pt Jvw1004 PT 19.0 seconds 09/03/2017 Pt Ckj7222 INR 1.6 09/03/2017 Pt Ztz3956 Low Intensity - 1.5-2.0 09/03/2017 Pt Kqr8777 Mod intensity - 2.0-3.0 09/03/2017 Pt Pqo0056 Hi intensity - 3.0-4.0 09/03/2017 Pt Sri7759 PT 17.6 seconds 08/23/2017 Pt Mms1881 INR 1.5 08/23/2017 Pt Ree5782 Low Intensity - 1.5-2.0 08/23/2017 Pt Wfy6623 Mod intensity - 2.0-3.0 08/23/2017 Pt Cby5500 Hi intensity - 3.0-4.0 08/23/2017 Pt Nbw7367 PT 12.7 seconds 08/20/2017 Pt Nfz4035 INR 1.0 08/20/2017 Pt Eey2235 Low Intensity - 1.5-2.0 08/20/2017 Pt Fen6994 Mod intensity - 2.0-3.0 08/20/2017 Pt Qvo5942 Hi intensity - 3.0-4.0 08/20/2017 Pt Rfs7980 PT 12.9 seconds 08/17/2017 Pt Doy3607 INR 1.0 08/17/2017 Pt Jpv8386 Low Intensity - 1.5-2.0 08/17/2017 Pt Rwa8925 Mod intensity - 2.0-3.0 08/17/2017 Pt Gkc1853 Hi intensity - 3.0-4.0 08/17/2017 Pt Fut4723 PT 18.5 seconds 08/10/2017 Pt Xzb2863 INR 1.6 08/10/2017 Pt Ozg7798 Low Intensity - 1.5-2.0 08/10/2017 Pt Rww7736 Mod intensity - 2.0-3.0 08/10/2017 Pt Jlj0692 Hi intensity - 3.0-4.0 08/10/2017 Tsh Ord6 [...] 29.3 pg 05/27/2017 Cbc With Differential Ord2 Lucas% 8.1 % 05/27/2017 Cbc With Differential Ord2 [...] 1.11 K/ul 05/27/2017 Cbc With Differential Ord2 Lucas ABS# 0.6 K/ul 05/27/2017 Cbc With Differential Ord2 Eos ABS# 0.2 K/ul 05/27/2017 Cbc With Differential Ord2 Baso ABS# 0.1 K/ul 05/27/2017 Pt Mil8802 PT 28.2 seconds 05/27/2017 Pt Qap3666 INR 2.6 05/27/2017 Pt Lnt1691 Low Intensity - 1.5-2.0 05/27/2017 Pt Kmz4630 Mod intensity - 2.0-3.0 05/27/2017 Pt Lps3287 Hi intensity - 3.0-4.0 05/27/2017 Lipid Ord30 CHOL 167 mg/dL 05/27/2017 Lipid Ord30 HDL 49.0 mg/dl 05/27/2017 Lipid Ord30 TRIG 347 mg/dL 05/27/2017 Lipid Ord30 LDL 49 mg/dL 05/27/2017 Lipid Ord30 C/HDL 3.4 Ratio 05/27/2017 Magnesium Ord90 Mag 1.4 mg/dL 05/27/2017 %Hba1C Fox770 % HbA1c 86706-3 5.9 % 05/27/2017 %Hba1C Smi897 Gluc Ave 123 mg/dL 05/27/2017 Comp Metabolic Kyf821 NA 138 mEq/L 05/27/2017 Comp Metabolic Mgl879 K 4.1 mEq/L 05/27/2017 Comp Metabolic Rqr948 CL 101 mEq/L 05/27/2017 Comp Metabolic Cgc486 CO2 31.0 mEq/L 05/27/2017 Comp Metabolic Pvk091 AN ION GAP 10 05/27/2017 Comp Metabolic Mku963 GL UCOSE 117 mg/dL 05/27/2017 Comp Metabolic Zxw707 Cr eat 0.9 mg/dL 05/27/2017 Comp Metabolic Mim784 eG FR 62 ml/min/1.73m2 05/27 Comp Metabolic Hfl918 BUN 25 mg/dL 05/27/2017 Comp Metabolic Nen320 B/ C Ratio 26.6 Ratio 05/27/2017 Comp Metabolic Qvw049 CA LCIUM 9.5 mg/dL 05/27/2017 Comp Metabolic Gax045 AL K PHOS 73 U/L 05/27/2017 Comp Metabolic Tft038 T(SGOT) 18 U/L 05/27/2017 Comp Metabolic Ybm648 AL T(SGPT) 12 U/L 05/27/2017 Comp Metabolic Kjm624 BI LI T 0.5 mg/dL 05/27/2017 Comp Metabolic Ixv783 AL BUMIN 4.1 g/dL 05/27/2017 Comp Metabolic Cyk130 TP RO 7.1 g/dL 05/27/2017 Comp Metabolic Huc941 GL OB 3.0 g/dL 05/27/2017 Comp Metabolic Odn031 A/ G Ratio 1.3 Ratio 05/27/2017 Comp Metabolic Xat060 Os mo 281 mOsmo 05/27/2017 Free T4 Xma773 FREE T4 0.91 ng/dL 05/27/2017 Pt Nec2951 PT 29.2 seconds 04/16/2017 Pt Qbu5493 INR 2.7 04/16/2017 Pt Bpr7252 Low Intensity - 1.5-2.0 04/16/2017 Pt Vuc1461 Mod intensity - 2.0-3.0 04/16/2017 Pt Qlk8276 Hi intensity - 3.0-4.0 04/16/2017 Pt Wne0046 PT 30.7 seconds 03/31/2017 Pt Azq8009 INR 2.9 03/31/2017 Pt Xxx9061 Low Intensity - 1.5-2.0 03/31/2017 Pt Uwb1938 Mod intensity - 2.0-3.0 03/31/2017 Pt Ogm3539 Hi intensity - 3.0-4.0 03/31/2017 Pt Nct8595 PT 21.3 seconds 03/26/2017 Pt Thh1518 INR 1.9 03/26/2017 Pt Cos0060 Low Intensity - 1.5-2.0 03/26/2017 Pt Qjp0015 Mod intensity - 2.0-3.0 03/26/2017 Pt Oha8752 Hi intensity - 3.0-4.0 03/26/2017 Pt Kuw2808 PT 19.8 seconds 03/22/2017 Pt Fam8739 INR 1.7 03/22/2017 Pt Qrw5434 Low Intensity - 1.5-2.0 03/22/2017 Pt Yiy9973 Mod intensity - 2.0-3.0 03/22/2017 Pt Jac5809 Hi intensity - 3.0-4.0 03/22/2017 Pt Qch8949 PT 15.6 seconds 03/19/2017 Pt Uyk7257 INR 1.3 03/19/2017 Pt Nlm7894 Low Intensity - 1.5-2.0 03/19/2017 Pt Llz9619 Mod intensity - 2.0-3.0 03/19/2017 Pt Sck1390 Hi intensity - 3.0-4.0 03/19/2017 Pt Ldp4007 PT 13.7 seconds 03/15/2017 Pt Fau6403 INR 1.1 03/15/2017 Pt Xyy4013 Low Intensity - 1.5-2.0 03/15/2017 Pt Wbq8952 Mod intensity - 2.0-3.0 03/15/2017 Pt Gvc3763 Hi intensity - 3.0-4.0 03/15/2017 Pt Nfn5827 PT 25.8 seconds 01/28/2017 Pt Qpl2665 INR 2.4 01/28/2017 Pt Gim9812 Low Intensity - 1.5-2.0 01/28/2017 Pt Zjl8355 Mod intensity - 2.0-3.0 01/28/2017 Pt Afh3934 Hi intensity - 3.0-4.0 01/28/2017 %Hba1C Ttf113 % HbA1c 66664-3 6.4 % 10/23/2016 %Hba1C Ncl047 Gluc Ave 137 mg/dL 10/23/2016 Comp Metabolic Dfw622 NA 138 mEq/L 10/23/2016 Comp Metabolic Ada602 K 3.4 mEq/L 10/23/2016 Comp Metabolic Hvn417 CL 100 mEq/L 10/23/2016 Comp Metabolic Njj517 CO2 30.0 mEq/L 10/23/2016 Comp Metabolic Zhx030 AN ION GAP 11 10/23/2016 Comp Metabolic Pkh787 GL UCOSE 139 mg/dL 10/23/2016 Comp Metabolic Pzi477 Cr eat 0.9 mg/dL 10/23/2016 Comp Metabolic Hjw576 eG FR 62 ml/min/1.73m2 10/23 Comp Metabolic Tvv198 BUN 22 mg/dL 10/23/2016 Comp Metabolic Uia741 B/ C Ratio 23.4 Ratio 10/23/2016 Comp Metabolic Vtc946 CA LCIUM 8.7 mg/dL 10/23/2016 Comp Metabolic Cea426 AL K PHOS 66 U/L 10/23/2016 Comp Metabolic Atd843 T(SGOT) 20 U/L 10/23/2016 Comp Metabolic Qki202 AL T(SGPT) 10 U/L 10/23/2016 Comp Metabolic Tps866 BI LI T 0.5 mg/dL 10/23/2016 Comp Metabolic Pbb252 AL BUMIN 3.5 g/dL 10/23/2016 Comp Metabolic Kkc933 TP RO 6.3 g/dL 10/23/2016 Comp Metabolic Qfx883 GL OB 2.8 g/dL 10/23/2016 Comp Metabolic Uis778 A/ G Ratio 1.3 Ratio 10/23/2016 Comp Metabolic Jyl217 Os mo 281 mOsmo 10/23/2016 Pt Lfw0955 PT 26.8 seconds 10/23/2016 Pt Moq1967 INR 2.7 10/23/2016 Pt Srg5302 Low Intensity - 1.5-2.0 10/23/2016 Pt Eek8640 Mod intensity - 2.0-3.0 10/23/2016 Pt Ihw6713 Hi intensity - 3.0-4.0 10/23/2016 Pt Pao8783 PT 28.3 seconds 09/25/2016 Pt Qxq8363 INR 2.8 09/25/2016 Pt Gqp1169 Low Intensity - 1.5-2.0 09/25/2016 Pt Xsg9461 Mod intensity - 2.0-3.0 09/25/2016 Pt Rwo1505 Hi intensity - 3.0-4.0 09/25/2016 Metabolic Ord15 [...] Metabolic Ord15 CALCIUM 8.8 mg/dL 09/25/2016 Pt Wym9580 PT 30.6 seconds 09/11/2016 Pt Tna8591 INR 3.2 09/11/2016 Pt Jif6608 Low Intensity - 1.5-2.0 09/11/2016 Pt Uku3232 Mod intensity - 2.0-3.0 09/11/2016 Pt Umd9842 Hi intensity - 3.0-4.0 09/11/2016 Comp Metabolic Xyd452 NA 138 mEq/L 09/11/2016 Comp Metabolic Stj559 K 4.4 mEq/L 09/11/2016 Comp Metabolic Dyt515 CL 103 mEq/L 09/11/2016 Comp Metabolic Vqz570 CO2 31.0 mEq/L 09/11/2016 Comp Metabolic Vsa725 AN ION GAP 8 09/11/2016 Comp Metabolic Yhr579 GL UCOSE 146 mg/dL 09/11/2016 Comp Metabolic Pnt874 Cr eat 1.0 mg/dL 09/11/2016 Comp Metabolic Fsc492 eG FR 60 ml/min/1.73m2 09/11 Comp Metabolic Gxo451 BUN 16 mg/dL 09/11/2016 Comp Metabolic Kvi861 B/ C Ratio 16.5 Ratio 09/11/2016 Comp Metabolic Yej838 CA LCIUM 8.7 mg/dL 09/11/2016 Comp Metabolic Hsl694 AL K PHOS 52 U/L 09/11/2016 Comp Metabolic Hpm193 T(SGOT) 19 U/L 09/11/2016 Comp Metabolic Dys933 AL T(SGPT) 11 U/L 09/11/2016 Comp Metabolic Wkb265 BI LI T 0.7 mg/dL 09/11/2016 Comp Metabolic Umj978 AL BUMIN 3.3 g/dL 09/11/2016 Comp Metabolic Erz852 TP RO 5.8 g/dL 09/11/2016 Comp Metabolic Uxw163 GL OB 2.5 g/dL 09/11/2016 Comp Metabolic Cwy317 A/ G Ratio 1.3 Ratio 09/11/2016 Comp Metabolic Yla602 Os mo 280 mOsmo 09/11/2016 C-Reactive Protein Qnt Crqnt CRP 0.1 mg/dl 08/21/2016 Comp Metabolic Rpu642 NA 139 mEq/L 08/21/2016 Comp Metabolic Vzj503 K 4.1 mEq/L 08/21/2016 Comp Metabolic Xqu068 CL 102 mEq/L 08/21/2016 Comp Metabolic Zys455 CO2 30.0 mEq/L 08/21/2016 Comp Metabolic Qwc908 AN ION GAP 11 08/21/2016 Comp Metabolic Vcd979 GL UCOSE 148 mg/dL 08/21/2016 Comp Metabolic Txf563 Cr eat 1.0 mg/dL 08/21/2016 Comp Metabolic Cpu893 eG FR 55 ml/min/1.73m2 08/21 Comp Metabolic Cuu179 BUN 21 mg/dL 08/21/2016 Comp Metabolic Dwq144 B/ C Ratio 20.2 Ratio 08/21/2016 Comp Metabolic Xme275 CA LCIUM 9.4 mg/dL 08/21/2016 Comp Metabolic Tja868 AL K PHOS 63 U/L 08/21/2016 Comp Metabolic Abu702 T(SGOT) 23 U/L 08/21/2016 Comp Metabolic Dyv509 AL T(SGPT) 16 U/L 08/21/2016 Comp Metabolic Knz221 BI LI T 0.6 mg/dL 08/21/2016 Comp Metabolic Glg933 AL BUMIN 3.9 g/dL 08/21/2016 Comp Metabolic Dnd597 TP RO 6.8 g/dL 08/21/2016 Comp Metabolic Lmz247 GL OB 2.9 g/dL 08/21/2016 Comp Metabolic Zrp763 A/ G Ratio 1.4 Ratio 08/21/2016 Comp Metabolic Uns528 Os mo 283 mOsmo 08/21/2016 Sed Rate Ord21 ESR 16 mm/hr 08/21/2016 Pt Lgx6226 PT 27.2 seconds 08/21/2016 Pt Wvn7423 INR 2.7 08/21/2016 Pt Otc3197 Low Intensity - 1.5-2.0 08/21/2016 Pt Pjr9499 Mod intensity - 2.0-3.0 08/21/2016 Pt Yxs2079 Hi intensity - 3.0-4.0 08/21/2016 Magnesium Ord90 Mag 1.9 mg/dL 08/21/2016 Pt Cok2301 PT 25.9 seconds 06/17/2016 Pt Qjp3945 INR 2.5 06/17/2016 Pt Eas5527 Low Intensity - 1.5-2.0 06/17/2016 Pt Fhu8404 Mod intensity - 2.0-3.0 06/17/2016 Pt Hhr8453 Hi intensity - 3.0-4.0 06/17/2016 Tsh Ord6 hTSH II 2.13 uIU/mL 06/08/2016 Free T4 Khv426 FREE T4 0.79 ng/dL 06/08/2016 Cbc With [...] 80.8 fl 06/08/2016 Cbc With Differential Ord2 Lucas% 12.0 % 06/08/2016 Cbc With Differential Ord2 [...] 1.40 K/ul 06/08/2016 Cbc With Differential Ord2 Lucas ABS# 0.7 K/ul 06/08/2016 Cbc With Differential Ord2 Eos ABS# 0.3 K/ul 06/08/2016 Cbc With Differential Ord2 Baso ABS# 0.1 K/ul 06/08/2016 %Hba1C Cfu032 % HbA1c 77512-1 6.2 % 06/08/2016 %Hba1C Xcc597 Gluc Ave 131 mg/dL 06/08/2016 Comp Metabolic Fue021 NA 138 mEq/L 06/08/2016 Comp Metabolic Nld801 K 3.9 mEq/L 06/08/2016 Comp Metabolic Hqr286 CL 105 mEq/L 06/08/2016 Comp Metabolic Iql863 CO2 27.0 mEq/L 06/08/2016 Comp Metabolic Rzy291 AN ION GAP 10 06/08/2016 Comp Metabolic Ner473 GL UCOSE 127 mg/dL 06/08/2016 Comp Metabolic Ago451 Cr eat 1.0 mg/dL 06/08/2016 Comp Metabolic Kga807 eG FR 59 ml/min/1.73m2 06/08 Comp Metabolic Fhr993 BUN 19 mg/dL 06/08/2016 Comp Metabolic Gum006 B/ C Ratio 19.4 Ratio 06/08/2016 Comp Metabolic Dal081 CA LCIUM 9.2 mg/dL 06/08/2016 Comp Metabolic Noe411 AL K PHOS 77 U/L 06/08/2016 Comp Metabolic Huv407 T(SGOT) 19 U/L 06/08/2016 Comp Metabolic Ibb263 AL T(SGPT) 13 U/L 06/08/2016 Comp Metabolic Mfv480 BI LI T 0.5 mg/dL 06/08/2016 Comp Metabolic Jma849 AL BUMIN 3.8 g/dL 06/08/2016 Comp Metabolic Rrs999 TP RO 6.6 g/dL 06/08/2016 Comp Metabolic Hcp365 GL OB 2.8 g/dL 06/08/2016 Comp Metabolic Ays905 A/ G Ratio 1.4 Ratio 06/08/2016 Comp Metabolic Yfb476 Os mo 280 mOsmo 06/08/2016 Pt Brm6184 PT 36.1 seconds 06/08/2016 Pt Ush5156 INR 3.9 06/08/2016 Pt Imv1191 Low Intensity - 1.5-2.0 06/08/2016 Pt Smg8668 Mod intensity - 2.0-3.0 06/08/2016 Pt Meg7527 Hi intensity - 3.0-4.0 06/08/2016 Lipid Ord30 CHOL 149 mg/dL 06/08/2016 Lipid Ord30 HDL 46.0 mg/dl 06/08/2016 Lipid Ord30 TRIG 279 mg/dL 06/08/2016 Lipid Ord30 LDL 47 mg/dL 06/08/2016 Lipid Ord30 C/HDL 3.2 Ratio 06/08/2016 Pt Txk2411 PT 30.9 seconds 02/12/2016 Pt Mzk7029 INR 3.2 02/12/2016 Pt Uaz6369 Low Intensity - 1.5-2.0 02/12/2016 Pt Lhw6265 Mod intensity - 2.0-3.0 02/12/2016 Pt Ejq6228 Hi intensity - 3.0-4.0 02/12/2016 Free T4 Rly935 FREE T4 1.24 ng/dL 09/27/2015 %Hba1C Wjh205 % HbA1c 99129-6 6.4 % 09/27/2015 %Hba1C Upf390 Gluc Ave 137 mg/dL 09/27/2015 Tsh Ord6 hTSH II 0.37 uIU/mL 09/27/2015 Pt Atn3585 PT 26.2 seconds 09/27/2015 Pt Lym5490 INR 2.5 09/27/2015 Pt Sns7684 Low Intensity - 1.5-2.0 09/27/2015 Pt Gpr6609 Mod intensity - 2.0-3.0 09/27/2015 Pt Gmg9538 Hi intensity - 3.0-4.0 09/27/2015 Pt Ixf0184 PT 27.6 seconds 2015 Pt Uax3598 INR 2.7 2015 Pt Egp4036 Low Intensity - 1.5-2.0 2015 Pt Mys1871 Mod intensity - 2.0-3.0 2015 Pt Zzc4015 Hi intensity - 3.0-4.0 2015 %Hba1C Jcj822 % HbA1c 25348-3 6.1 % 06/11/2015 %Hba1C Mmo106 Gluc Ave 128 mg/dL 06/11/2015 Cbc With [...] Ord2 RDW 15.8 % 06/10/2015 Comp Metabolic Obs147 NA 139 mEq/L 06/10/2015 Comp Metabolic Sfb212 K 4.1 mEq/L 06/10/2015 Comp Metabolic Qlu267 CL 105 mEq/L 06/10/2015 Comp Metabolic Dta798 CO2 27.0 mEq/L 06/10/2015 Comp Metabolic Nzp525 AN ION GAP 11 06/10/2015 Comp Metabolic Xly868 GL UCOSE 127 mg/dL 06/10/2015 Comp Metabolic Fcu458 Cr eat 1.0 mg/dL 06/10/2015 Comp Metabolic Sot567 eG FR 59 ml/min/1.73m2 06/10 Comp Metabolic Pqi766 BUN 21 mg/dL 06/10/2015 Comp Metabolic Iyl524 B/ C Ratio 21.2 Ratio 06/10/2015 Comp Metabolic Ysm392 CA LCIUM 9.2 mg/dL 06/10/2015 Comp Metabolic Qyr526 AL K PHOS 87 U/L 06/10/2015 Comp Metabolic Ehi977 T(SGOT) 20 U/L 06/10/2015 Comp Metabolic Ygi386 AL T(SGPT) 17 U/L 06/10/2015 Comp Metabolic Wdx297 BI LI T 0.4 mg/dL 06/10/2015 Comp Metabolic Kig001 AL BUMIN 4.1 g/dL 06/10/2015 Comp Metabolic Ipz521 TP RO 7.2 g/dL 06/10/2015 Comp Metabolic Iqs849 GL OB 3.1 g/dL 06/10/2015 Comp Metabolic Bac525 A/ G Ratio 1.3 Ratio 06/10/2015 Comp Metabolic Rfh962 Os mo 282 mOsmo 06/10/2015 Tsh Ord6 hTSH II 0.86 uIU/mL 06/10/2015 Lipid Ord30 CHOL 161 mg/dL 06/10/2015 Lipid Ord30 HDL 49.0 mg/dl 06/10/2015 Lipid Ord30 TRIG 208 mg/dL 06/10/2015 Lipid Ord30 LDL 70 mg/dL 06/10/2015 Lipid Ord30 C/HDL 3.3 Ratio 06/10/2015 Pt Ocy3818 PT 25.0 seconds 04/09/2015 Pt Xgh8343 INR 2.4 04/09/2015 Pt Gfo5031 Low Intensity - 1.5-2.0 04/09/2015 Pt Lao1187 Mod intensity - 2.0-3.0 04/09/2015 Pt Cbt8440 Hi intensity - 3.0-4.0 04/09/2015 Free T4 Njz096 FREE T4 1.05 ng/dL 01/22/2015 Pt Rdj9855 PT 27.2 seconds 01/22/2015 Pt Bwe4465 INR 2.6 01/22/2015 Pt Uvi7208 Low Intensity - 1.5-2.0 01/22/2015 Pt Siy2109 Mod intensity - 2.0-3.0 01/22/2015 Pt Hop4447 Hi intensity - 3.0-4.0 01/22/2015 Cbc With [...] Differential Ord2 RDW 15.2 % 01/22/2015 B12 Maw245 B12 402.00 pg/ml 01/22/2015 Tsh Ord6 hTSH II 0.65 uIU/mL 01/22/2015 Lipid Ord30 CHOL 166 mg/dL 01/22/2015 Lipid Ord30 HDL 48.0 mg/dl 01/22/2015 Lipid Ord30 TRIG 264 mg/dL 01/22/2015 Lipid Ord30 LDL 65 mg/dL 01/22/2015 Lipid Ord30 C/HDL 3.5 Ratio 01/22/2015 Comp Metabolic Dep977 NA 138 mEq/L 01/22/2015 Comp Metabolic Gqz372 K 4.1 mEq/L 01/22/2015 Comp Metabolic Grm595 CL 104 mEq/L 01/22/2015 Comp Metabolic Jzs478 CO2 29.0 mEq/L 01/22/2015 Comp Metabolic Biv943 AN ION GAP 9 01/22/2015 Comp Metabolic Hut509 GL UCOSE 106 mg/dL 01/22/2015 Comp Metabolic Rvb547 Cr eat 0.9 mg/dL 01/22/2015 Comp Metabolic Pkf398 eG FR 63 ml/min/1.73m2 01/22 Comp Metabolic Kip154 BUN 21 mg/dL 01/22/2015 Comp Metabolic Zzq826 B/ C Ratio 22.3 Ratio 01/22/2015 Comp Metabolic Zin515 CA LCIUM 9.4 mg/dL 01/22/2015 Comp Metabolic Zlh049 AL K PHOS 83 U/L 01/22/2015 Comp Metabolic Yld783 T(SGOT) 23 U/L 01/22/2015 Comp Metabolic Mfc602 AL T(SGPT) 18 U/L 01/22/2015 Comp Metabolic Kkw955 BI LI T 0.8 mg/dL 01/22/2015 Comp Metabolic Stm410 AL BUMIN 4.2 g/dL 01/22/2015 Comp Metabolic Wub635 TP RO 7.3 g/dL 01/22/2015 Comp Metabolic Smq238 GL OB 3.1 g/dL 01/22/2015 Comp Metabolic Bwi161 A/ G Ratio 1.4 Ratio 01/22/2015 Comp Metabolic Fkk655 Os mo 279 mOsmo 01/22/2015 Review of [...] Date URINALYSIS NONAUTO W /O SCOPE CPT-4: 79609 03/05/2017 Vital Signs Date Vital 04/14/2018 Blood Pressure 1: 116/78 Code: 8480-6 BMI: 41.6 Code: 10399-6 Heart Rate 1: 72 bpm Height: 5'1" SpO2: 98% Weight: 220 lbs 01/18/2018 Blood Pressure 1: 132/74 Code: 8480-6 BMI: 43.5 Code: 38992-3 Heart Rate 1: 70 bpm Height: 5'1" SpO2: 97% Weight: 230 lbs 01/04/2018 Blood Pressure 1: 134/76 Code: 8480-6 BMI: 42.7 Code: 50807-2 Heart Rate 1: 83 bpm Height: 5'1" SpO2: 98% Weight: 226 lbs 09/23/2017 Blood Pressure 1: 124/76 Code: 8480-6 BMI: 42.3 Code: 24934-3 Heart Rate 1: 94 bpm Height: 5'1" SpO2: 96% Weight: 224 lbs 05/27/2017 Blood Pressure 1: 146/78 Code: 8480-6 BMI: 41.4 Code: 73613-8 Heart Rate 1: 85 bpm Height: 5'1" SpO2: 98% Weight: 219 lbs 02/24/2017 Blood Pressure 1: 138/66 Code: 8480-6 BMI: 41.4 Code: 45991-8 Heart Rate 1: 78 bpm Height: 5'1" SpO2: 97% Weight: 219 lbs 11/02/2016 Blood Pressure 1: 144/72 Code: 8480-6 BMI: 46.1 Code: 15426-0 Heart Rate 1: 78 bpm Height: 5'1" SpO2: 98% Weight: 244 lbs 09/30/2016 Blood Pressure 1: 130/76 Code: 8480-6 BMI: 45.0 Code: 89418-5 Heart Rate 1: 86 bpm Height: 5'1" SpO2: 98% Weight: 238 lbs 09/10/2016 Blood Pressure 1: 136/68 Code: 8480-6 BMI: 46.3 Code: 12283-6 Heart Rate 1: 83 bpm Height: 5'1" SpO2: 98% Weight: 245 lbs 08/20/2016 Blood Pressure 1: 142/78 Code: 8480-6 BMI: 45.3 Code: 85598-9 Heart Rate 1: 84 bpm Height: 5'1" SpO2: 99% Weight: 240 lbs 06/08/2016 Blood Pressure 1: 134/76 Code: 8480-6 BMI: 44.2 Code: 99410-6 Heart Rate 1: 86 bpm Height: 5'1" SpO2: 96% Weight: 234 lbs 04/02/2016 Blood Pressure 1: 142/70 Code: 8480-6 BMI: 44.6 Code: 84942-9 Heart Rate 1: 78 bpm Height: 5'1" SpO2: 97% Weight: 236 lbs 01/14/2016 Blood Pressure 1: 146/72 Code: 8480-6 BMI: 44.2 Code: 27356-3 Heart Rate 1: 86 bpm Height: 5'1" SpO2: 96% Weight: 234 lbs 10/02/2015 Blood Pressure 1: 158/76 Code: 8480-6 BMI: 44.2 Code: 65356-7 Heart Rate 1: 67 bpm Height: 5'1" SpO2: 97% Weight: 234 lbs 07/15/2015 Blood Pressure 1: 148/78 Code: 8480-6 Blood Pressure 1: 200/90 Code: 8480-6 BMI: 44.0 Code: 99094-4 Heart Rate 1: 89 bpm Height: 5'1" SpO2: 97% Weight: 233 lbs 06/10/2015 Blood Pressure 1: 140/82 Code: 8480-6 BMI: 44.0 Code: 46225-3 Heart Rate 1: 78 bpm Height: 5'1" [...] wearing crocs and there was a new macanese on the floor: her foot didn't move [...] Encounters Encounter Performer Loca tion Codes Date ([id number]) [id number] EST. [facility] Diagnosis: Essential (primary) hypertension[ICD10: I10] Diagnosis: Hypothyroidism, unspecified[ICD10: E03.9] Diagnosis: Impaired fasting glucose[ICD10: R73.01] Diagnosis: long-term (current) use of anticoagulants[ICD10: Z79.01] Edna Almanza MD, [facility] CPT-4: 87954 04/14/2018 ([id number]) [id number] EST. [facility] Diagnosis: Localized edema[ICD10: R60.0] Diagnosis: Gastro-esophageal reflux disease without esophagitis[ICD10: K21.9] [facility] CPT-4: 94130 01/18/2018 ([id number]) [id number] EST. [facility] Diagnosis: Gastro-esophageal reflux disease without esophagitis[ICD10: K21.9] Diagnosis: Localized edema[ICD10: R60.0] Diagnosis: Essential (primary) hypertension[ICD10: I10] Diagnosis: Hypothyroidism, unspecified[ICD10: E03.9] Diagnosis: Impaired fasting glucose[ICD10: R73.01] [facility] CPT-4: 00950 01/04/2018 ([id number]) 35330 EST. P ATIENT, LEVEL IV Diagnosis: Essential (primary) hypertension[ICD10: I10] Diagnosis: long-term (current) use of anticoagulants[ICD10: Z79.01] Diagnosis: Incisional hernia without obstruction or gangrene[ICD10: K43.2] Diagnosis: Right lower quadrant pain[ICD10: R10.31] Sarai Almanza MD, [facility] CPT-4: 77465 09/23/2017 ([id number]) 02383 EST. P ATIENT, LEVEL IV Diagnosis: Essential (primary) hypertension[ICD10: I10] Diagnosis: Mixed hyperlipidemia[ICD10: E78.2] Diagnosis: Hypothyroidism, unspecified[ICD10: E03.9] Diagnosis: Impaired fasting glucose[ICD10: R73.01] Diagnosis: long-term (current) use of anticoagulants[ICD10: Z79.01] Edna Almanza MD, [facility] CPT-4: 16611 05/27/2017 [id number] EST. PATIENT, LEVEL III Diagnosis: Pain in right hip[ICD10: M25.551] Nata Almanza MD, [facility] CPT-4: 09516 02/24/2017 ([id number]) 66725 EST. P ATIENT, LEVEL IV Diagnosis: Essential (primary) hypertension[ICD10: I10] Diagnosis: Localized edema[ICD10: R60.0] Diagnosis: Pain in right hip[ICD10: M25.551] Sarai Almanza MD, [facility] CPT-4: 40379 11/02/2016 ([id number]) 34577 EST. P ATIENT, LEVEL IV Diagnosis: Essential (primary) hypertension[ICD10: I10] Diagnosis: Localized edema[ICD10: R60.0] Sarai Almanza MD, [facility] CPT-4: 44826 09/30/2016 [id number] EST. PATIENT, LEVEL IV Diagnosis: Localized edema[ICD10: R60.0] Diagnosis: Pain in joints of left hand[ICD10: M25.542] Diagnosis: Pain in joints of right hand[ICD10: M25.541] Nata Almanza MD, [facility] CPT-4: 03275 09/10/2016 [id number] EST. PATIENT, LEVEL IV Diagnosis: Localized edema[ICD10: R60.0] Diagnosis: Pain in joints of left hand[ICD10: M25.542] Diagnosis: Pain in joints of right hand[ICD10: M25.541] Diagnosis: Other fatigue[ICD10: R53.83] Nata Almanza MD, [facility] CPT-4: 45461 08/20/2016 [id number] EST. 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 PATIENT, LEVEL IV Diagnosis: Other allergic rhinitis[ICD10: J30.89] Diagnosis: Acute laryngopharyngitis[ICD10: J06.0] Nata Almanza MD, [facility] CPT-4: 54113 04/02/2016 [id number] EST. PATIENT, LEVEL IV Diagnosis: Left upper quadrant pain[ICD10: R10.12] Nata Almanza MD, [facility] CPT-4: 22641 01/14/2016 [id number] EST. PATIENT, LEVEL IV Diagnosis: Pain in left shoulder[ICD10: M25.512] Diagnosis: Body mass index (BMI) 40.0-44.9, adult[ICD10: Z68.41] Nata Almanza MD, [facility] CPT-4: 29632 10/02/2015 [id number] EST. PATIENT, LEVEL IV Diagnosis: Pain in left leg[ICD10: M79.605] Diagnosis: Other halfway (current) drug therapy[ICD10: Z79.899] Nata Almanza MD, [facility] CPT-4: 64238 07/15/2015 ([id number]) 16404 EST. 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: Other halfway (current) drug therapy[ICD10: Z79.899] [facility] CPT-4: 92168 06/10/2015 ([id number]) [facility] - LEV[facility] 4 Diagnosis: ESSENTIAL HYPERTENSION[ICD9: 401.9] Diagnosis: HYPOTHYROIDISM[ICD9: 244.9] Diagnosis: ENCNTR LONG-RX USE NEC[ICD9: V58.69] Diagnosis: HYPERLIPIDEMIA[ICD9: 272.4] Diagnosis: Vitamin B12 deficiency[ICD9: 266.2] Diagnosis: Status post gastric surgery[ICD9: V45.89] Diagnosis: Snoring[ICD9: 786.09] [facility] CPT-4: 62596 01/22/2015 Plan of Care Planned Activity Notes [...] Hgb A1C 04/14/2018 Appointment: Edna Douglas WPtel: [address] [place], [place] [phone] (15 min) Moderate 04/14/2018 Patient Education: Patient [...] to further attempt to reduce peripheral edema. [id number]-[id number] prilosec BID and carafate QID -discussed low spice, low acidic diet 01/18/2018 Appointment: Edna Douglas [facility]el[phone] (15 min) Moderate 01/18/2018 Patient [...] of control. 01/04/2018 Appointment: Edna Douglas WPtel[facility] [phone] (30 min) Complex 01/04/2018 Patient Education: Patient Medication Summary Completed 01/04/2018 Care Plan: SCREENINGMAMMOGRAPHYDIGITAL LOINC : 59975-1 Pending 01/04/2018 Visit Plan: Abdominal hernia - not able to be taken to surgery by local providers and pt has been seen at [facility] and that surgeon felt like [...] at home. 09/23/2017 App[facility]ment[phone] (15 min) Moderate 09/23/2017 Patient Education: [...] medications. 05/27/2017 App[facility]ment: [phone] [place] (30 min) Complex 05/27/2017 Patient [...] Dr. Palacios. 02/24/2017 App[facility]ment: Nata Hsu [phone] (30 min) Complex 02/24/2017 Patient [...] Chaney. 11/02/2016 App[facility]ment: [phone] [place] (15 min) Moderate 11/02/2016 Patient [...] edema. 09/30/2016 Appointment: Sarai Almanza WPtel: [phone] [facility] [...] edema. 09/10/2016 Appointment: Nata Hsu WPtel: [facility] [place] (30 min) Complex 09/10/2016 Patient [...] edema. 08/20/2016 Appointment: Nata Hsu WPtel: [phone] [facility] (30 min) Complex 08/20/2016 Patient Education: Patient Medication Summary Completed 08/20/2016 Referral: Otf Lee [id number] Referral Initiated 07/02/2016 Visit Plan: Chronic Anticoagulant [...] 06/08/2016 Care Plan: Referral Order SNOMED-CT : [id number] Pending 06/08/2016 Visit Plan: URI - Pt [...] allergy spray. 04/02/2016 Appointment: Nata Hsu WPtel: [facility] [place] (30 min) Complex 04/02/2016 Patient [...] acute pain 01/14/2016 Appointment: Edna Douglas WPtel: [facility] [phone] (30 min) Complex 01/14/2016 Patient Education: Patient Medication Summary Completed 01/14/2016 Patient Education: Obesity Completed 01/14/2016 Care Plan: BMI Above normal followup DAVID F-MGMT EDUC & TRAIN 1 PT Pending 10/24/2015 Care Plan: X-RAY EXAM OF SHOULDER LOINC : 00890-1 Pending 10/24/2015 Visit Plan: Left shoulder pain [...] 10/02/2015 Appointment: Edna Douglas WPtel[facility] [phone] (15 min) Moderate 10/02/2015 [...] 06/10/2015 Appointment: Sarai Almanza WPtel: [facility] [place] (15 min) Moderate 04/22/2015 Visit [...] have surgical fixation - planning occurring at [facility]. Snoring - Sleep apnea symptoms with [...] medications. 01/22/2015 Appointment: Sarai Almanza WPtel: [phone] [facility] [place] (S) New Patient 01/22/2015 Patient Education: Patient Medication Summary Completed 01/22/2015 Patient Education: Hypertension Completed 01/22/2015 [facility] [place] Ref[facility] Initiated Instructions Comment . Joint [...] to further attempt to reduce peripheral edema. PSKH-wizrspko-osqvzczm prilosec BID and carafate QID -discussed low [...] pt has been seen at [facility] and that surgeon felt like [...] have surgical fixation - planning occurring at [facility]. Snoring - Sleep apnea symptoms with [...]
--- OUTSIDE RECORDS SUMMARY | 2020-01-17 00:02 | XMS REPORT | CCD ---
Author Author Kat Almanza Organization Sarai Almanza MD, [facility] Address [address] [place] [address] Phone Care Team Providers Care Instrument And Control Technician Name Role Phone PP Unavailable CCM Unavailable Summary Purpose Interface Exchange Insurance Providers Payer name Policy type / Coverage type Covered democrat ID Effective Begin Date Effective End Date WPS Medicare Part B Medicare Part B [id number] 2017 Unknown [employer] [place] [employer] Medicare Part B [id number] 2017 Unknown Family history Father Diagnosis Age At Onset Hyperlipidemia Unknown Heart Attack Unknown Mother Diagnosis Age At Onset Arthritis Unknown Social History Social History Element Codes Description Effective Dates Marital status Unknown M arried Nathan 09/30/2016 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 Number of children Unknown 3 01/22/[address]: 141721956 Never smoker 01/22/[address]: 673821583 Never drinks alcohol 01/22/2015 Allergies, Adverse Reactions, Alerts Substance Reaction Codes Entered Date Inactivated Date Status * NO KNOWN DRUG ORIN RGIES Unknown 01/22/2015 No Inactive Date Active Past Medical History Illness Codes Condition Status Onset Date Resolved Date Gastro-esophageal re flux disease without esophagitis ICD-9: 530.81 ICD-10: K21.9 Active 01/04/2018 Unknown Localized edema ICD-9: 782.3 ICD-10: R60.0 Active 06/09/2015 Unknown Essential (primary) hypertension ICD-9: 401.9 ICD-10: I10 Active 06/07/2016 Unknown Hypothyroidism, unsp ecified ICD-9: 244.9 ICD-10: E03.9 Active 05/27/2017 Unknown Impaired fasting glu cose ICD-9: 790.21 ICD-10: R73.01 Active 05/27/2017 Unknown Incisional hernia wi thout obstruction or 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: K43.2 Active 09/23/2017 Unknown 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 ICD-9: V58.61 ICD-10: Z79.01 Active 05/27/2017 Unknown Right lower quadrant pain ICD-9: 789.03 [...] ICD-10: R53.83 Active 08/20/2016 Unknown 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 ICD-9: V58.69 ICD-10: [...] Condition Codes Effectiv e Dates Condition Status Gastro-esophageal re flux disease without esophagitis ICD-9: 530.81 ICD-10: K21.9 01/04/2018 Active Localized edema ICD-9: 782.3 ICD-10: R60.0 06/09/2015 Active Essential (primary) hypertension ICD-9: 401.9 ICD-10: I10 06/07/2016 Active Hypothyroidism, unsp ecified ICD-9: 244.9 ICD-10: E03.9 05/27/2017 Active Impaired fasting glu cose ICD-9: 790.21 ICD-10: R73.01 05/27/2017 Active Incisional hernia wi thout obstruction or 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: K43.2 09/23/2017 Active custodial (current) use of anticoagulants ICD-9: V58.61 ICD-10: Z79.01 05/27/2017 Active Right lower quadrant pain ICD-9: 789.03 [...] 780.79 ICD-10: R53.83 08/20/2016 Active 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 ICD-9: V58.69 ICD-10: [...] Fill Instructions atenolol 100 mg tablet RxNorm: 084585 1 Tablet(s) PO daily 02/04/2018 09/01/2018 Active atenolol 50 mg tablet RxNorm: 181237 1 Tablet(s) PO daily 02/03/2018 10/30/2018 Active omeprazole 20 mg cap sean,delayed release RxNorm: 629231 1 Capsule(s) BID 01/21/2018 01/15/2019 Ac tive Generic For:PRILOSEC 20MG 07/22/2017 8:5 8:20 AM Carafate 1 gram tablet RxNorm: 953603 1 Tablet(s) PO AC & HS 01/21/2018 03/03/2018 Active Carafate 1 gram tablet RxNorm: 473768 1 Tablet(s) PO AC & HS 01/18/2018 02/27/2018 Active Carafate 1 gram tablet RxNorm: 409261 1 Tablet(s) PO AC & HS TAKE ONE TABLET B Y MOUTH TWICE DAILY 01/18/2018 02/14/2018 Active Generic For:CARAFATE 1GM 9:10:56 AM Carafate 1 gram tablet RxNorm: 873407 1 Tablet(s) PO AC & HS 01/18/2018 01/20/2018 Inactive omeprazole 20 mg cap sean,delayed release RxNorm: 689885 Capsule(s) TAKE 1 CAP SEAN BY MOUTH EVERY DAY 01/17/2018 01/20/2018 Inactive Generic For:PRILOSEC 20MG 0 07/22/2017 8:58:20 AM omeprazole 20 mg cap sean,delayed release RxNorm: 907981 Capsule(s) TAKE 1 CAP SEAN BY MOUTH EVERY DAY 01/14/2018 01/16/2018 Inactive Generic For:PRILOSEC 20MG 07/22/2017 8:58:20 AM clonazepam 0.5 mg ta blet RxNorm: 845152 1 Tablet(s) PO BID 01/07/2018 06/05/2018 Active Plavix 75 mg tablet RxNorm: 418223 1 Tablet(s) PO daily 01/07/2018 07/05/2018 Active Carafate 1 gram tablet RxNorm: 979405 1 Tablet(s) PO AC & HS 01/04/2018 01/17/2018 Inactive Lasix 20 mg tablet RxNorm: 085045 TAKE ONE TABLET BY MOUTH DAILY 12/20/2017 04/18/2018 Ac tive Generic For:LASIX 20MG 12/20/2017 9:11: 03 AM sodium bicarbonate 6 50 mg tablet RxNorm: 294908 TAKE 2 TABLETS BY JAVON TH TWICE DAILY 12/20/2017 06/17/2018 Ac tive 12/20/2017 9:10:59 AM Carafate 1 gram tablet RxNorm: 054250 TAKE ONE TABLET BY MOUTH TWICE DAILY 12/20/2017 01/17/2018 In active Generic For:CARAFATE 1GM 12/20/2017 9:1 0:56 AM Synthroid 137 mcg ta blet RxNorm: 595409 TAKE 1 TABLET BY MOUT H ONCE DAILY 11/19/2017 05/17/2018 Ac tive Generic For:SYNTHROID 137MCG TAB 2017 8:58:04 AM Detrol LA 4 mg capsu le,extended release RxNorm: 701271 TAKE 1 CAPSULE BY JAVON TH ONCE DAILY 10/20/2017 04/17/2018 Active Generic For:DETROL LA 4MG CA P 10/20/2017 9:01:56 AM allopurinol 300 mg t ablet RxNorm: 241027 TAKE 1 TABLET BY MOUT H ONCE DAILY. 10/20/2017 04/17/2018 Ac tive Generic For:ZYLOPRIM 300 MG TABLET 07/2017 9:01:59 AM Coumadin 5 mg tablet RxNorm: 280733 1 Tablet(s) PO UD 10/01/2017 No Stop Date Active cyclobenzaprine 5 mg tablet RxNorm: 170574 1 Tablet(s) PO TID as needed myscle spasm 09/23/2017 10/12/2017 Inactive Lipitor 40 mg tablet RxNorm: 062803 TAKE 1 TABLET BY MOUTH ONCE DAILY 09/20/2017 09/14/2018 Ac tive Generic For:LIPITOR 40MG 09/20/2017 8:5 6:04 AM atenolol 100 mg tablet RxNorm: 603887 1 Tablet(s) PO daily 08/30/2017 02/03/2018 Inactive atenolol 50 mg tablet RxNorm: 408121 1 Tablet(s) PO daily 08/30/2017 08/30/2017 Inactive Lovenox 30 mg/0.3 mL subcutaneous syringe RxNorm: 877358 0.3 Milliliter(s) SQ Q12H 08/24/2017 09/06/2017 In active Lasix 20 mg tablet RxNorm: 560837 TAKE ONE TABLET BY MOUTH DAILY 08/23/2017 12/19/2017 In active Generic For:LASIX 20MG 08/21/2017 9:04: 27 AM Synthroid 137 mcg ta blet RxNorm: 901610 TAKE 1 TABLET BY MOUT H ONCE DAILY 08/23/2017 11/18/2017 In active Generic For:SYNTHROID 137MCG TAB 2017 9:04:30 AM Lovenox 30 mg/0.3 mL subcutaneous syringe RxNorm: 266338 0.3 Milliliter(s) SQ Q12H 08/10/2017 08/23/2017 In active clonazepam 0.5 mg ta blet RxNorm: 159628 1 Tablet(s) PO BID 08/04/2017 12/30/2017 Inactive Coumadin 4 mg tablet RxNorm: 662504 TAKE 1 TABLET BY MOUTH THREE TIMES PER [place] (WEDNESDAY, WEDNESDAY AND WEDNESDAY) 07/22/2017 02/16/2018 Active Generic For:COUMADIN 4MG 07/22/2017 8:58:26 AM Coumadin 4 mg tablet RxNorm: 298492 TAKE 1 TABLET BY MOUTH THREE TIMES PER [place] (WEDNESDAY, WEDNESDAY AND WEDNESDAY) 07/22/2017 02/16/2018 Active Generic For:COUMADIN 4MG 07/22/2017 8:58:26 AM omeprazole 20 mg cap sean,delayed release RxNorm: 445455 TAKE 1 CAPSULE BY JAVON TH EVERY DAY 07/22/2017 01/13/2018 Inactive Generic For:PRILOSEC 20MG 07/22/2017 8: 58:20 AM venlafaxine ER 75 mg capsule,extended release 24 hr RxNorm: 343825 TAKE 1 CAPSULE BY MOUTH ONCE DAILY 06/22/2017 06/16/2018 Active Generic For:*EFFEXOR XR 75MG 06/19/2017 12:23:45 PM sodium bicarbonate 6 50 mg tablet RxNorm: 868841 TAKE 2 TABLETS BY JAVON TH TWICE DAILY 06/22/2017 12/18/2017 In active 06/19/2017 12:23:30 PM Coumadin 5 mg tablet RxNorm: 282873 1 Tablet(s) PO UD 06/01/2017 09/30/2017 Inactive Keflex 500 mg capsule RxNorm: 950088 1 Capsule(s) PO TID 05/27/2017 06/02/2017 Inactive spironolactone 25 mg tablet RxNorm: 005924 1 Tablet(s) PO daily 05/24/2017 05/18/2018 Active Synthroid 137 mcg ta blet RxNorm: 810849 TAKE 1 TABLET BY MOUT H ONCE DAILY 05/24/2017 08/21/2017 In active Generic For:SYNTHROID 137MCG TAB 2016 8:55:59 AM Carafate 1 gram tablet RxNorm: 229559 TAKE ONE TABLET BY MOUTH TWICE DAILY 05/24/2017 12/19/2017 In active Generic For:CARAFATE 1GM 05/24/2017 8:5 5:54 AM Detrol LA 4 mg capsu le,extended release RxNorm: 925367 1 Capsule(s) PO daily TAKE 1 CAPSULE BY MOUTH ONCE DAILY 05/10/2017 10/19/2017 Inactive Generic For:DETROL LA 4MG CAP 02/19/2017 2:36:00 PM Lasix 20 mg tablet RxNorm: 620111 TAKE ONE TABLET BY MOUTH DAILY 04/23/2017 08/20/2017 In active Generic For:LASIX 20MG 04/23/2017 9:04: 01 AM Coumadin 4 mg tablet RxNorm: 312319 TAKE 1 TABLET BY MOUTH THREE TIMES PER [place] (WEDNESDAY, WEDNESDAY AND WEDNESDAY) 04/23/2017 07/21/2017 Inactive Generic For:COUMADIN 4MG 04/23/2017 9:04:05 AM allopurinol 300 mg t ablet RxNorm: 459459 TAKE 1 TABLET BY MOUT H ONCE DAILY. 04/23/2017 10/19/2017 In active Generic For:ZYLOPRIM 300 MG TABLET 08/2016 9:03:57 AM potassium chloride 2 0 mEq/15 mL oral liquid RxNorm: 709586 Milliliter(s) 30 Milliliter(s) (40mEq) PO daily 03/24/2017 07/21/2017 Inactive Lovenox 30 mg/0.3 mL subcutaneous syringe RxNorm: 650705 0.3 Milliliter(s) SQ Q12H 03/22/2017 03/26/2017 In active Lovenox 30 mg/0.3 mL subcutaneous syringe RxNorm: 001518 0.3 Milliliter(s) SQ Q12H 03/19/2017 03/20/2017 In active Lovenox 30 mg/0.3 mL subcutaneous syringe RxNorm: 038010 0.3 Milliliter(s) SQ Q12H 03/16/2017 03/18/2017 In active clonazepam 0.5 mg ta blet RxNorm: 837361 1 Tablet(s) PO BID 03/02/2017 07/28/2017 Inactive Lovenox 30 mg/0.3 mL subcutaneous syringe RxNorm: 286299 1 injection SQ BID do NOT take the night time dose the day before surgery, or the morning dose the day of surgery 03/01/2017 03/07/2017 Inactive Lovenox 30 mg/0.3 mL subcutaneous syringe RxNorm: 609674 1 injection SQ BID 03/01/2017 02/28/2017 In active Detrol LA 4 mg capsu le,extended release RxNorm: 084256 TAKE 1 CAPSULE BY JAVON TH ONCE DAILY 02/19/2017 05/09/2017 Inactive Generic For:DETROL LA 4MG C AP 02/19/2017 2:36:00 PM hydrocodone 5 mg-humberto taminophen 325 mg tablet RxNorm: 523909 1-2 Tablet(s) PO Q6 P RN 02/04/2017 No Stop Date Active Zetia 10 mg tablet RxNorm: 472665 TAKE 1 TABLET BY MOUTH DAILY 01/25/2017 05/24/2017 Inactive 01/23/2017 9:03:48 AM omeprazole 20 mg cap sean,delayed release RxNorm: 620282 TAKE 1 CAPSULE BY JAVON TH EVERY DAY 01/25/2017 07/21/2017 Inactive Generic For:PRILOSEC 20MG 01/23/2017 9: 03:45 AM Coumadin 4 mg tablet RxNorm: 818311 TAKE 1 TABLET BY MOUTH THREE TIMES PER [place] (WEDNESDAY, WEDNESDAY AND WEDNESDAY) 01/25/2017 04/22/2017 Inactive Generic For:COUMADIN 4MG 01/23/2017 9:03:51 AM sodium bicarbonate 6 50 mg tablet RxNorm: 186993 TAKE 2 TABLETS BY JAVON TH TWICE DAILY 12/24/2016 06/21/2017 In active 12/24/2016 9:09:27 AM Lasix 20 mg tablet RxNorm: 211005 1 Tablet(s) PO daily 12/24/2016 04/22/2017 Inactive Synthroid 137 mcg ta blet RxNorm: 893479 TAKE 1 TABLET BY MOUT H ONCE DAILY 11/24/2016 05/22/2017 In active Generic For:SYNTHROID 137MCG TAB 2016 9:04:37 AM Coumadin 4 mg tablet RxNorm: 608882 TAKE 1 TABLET BY MOUTH THREE TIMES PER [place] (WEDNESDAY, WEDNESDAY AND WEDNESDAY) 11/24/2016 01/22/2017 Inactive Generic For:COUMADIN 4MG 11/24/2016 9:04:41 AM hydrocodone 5 mg-humberto taminophen 325 mg tablet RxNorm: 213705 1-2 Tablet(s) PO Q6 P RN 11/17/2016 02/03/2017 In active Carafate 1 gram tablet RxNorm: 282049 TAKE ONE TABLET BY MOUTH TWICE DAILY 10/27/2016 05/23/2017 In active Generic For:CARAFATE 1GM 10/26/2016 8:3 9:42 AM allopurinol 300 mg t ablet RxNorm: 252332 Tablet(s) TAKE 1 TABL ET BY MOUTH ONCE DAILY. 10/26/2016 04/22/2017 Inactive Lipitor 40 mg tablet RxNorm: 114295 1 Tablet(s) PO daily 09/25/2016 09/19/2017 Inactive Coumadin 4 mg tablet RxNorm: 279558 TAKE 1 TABLET BY MOUTH THREE TIMES PER [place] (WEDNESDAY, WEDNESDAY AND WEDNESDAY) 09/25/2016 11/23/2016 Inactive Generic For:COUMADIN 4MG 09/25/2016 8:55:58 AM Zetia 10 mg tablet RxNorm: 190041 1 Tablet(s) PO daily 09/25/2016 01/22/2017 Inactive gave 1 month of samples clonazepam 0.5 mg ta blet RxNorm: 321853 1 Tablet(s) PO BID 09/21/2016 02/16/2017 Inactive Lasix 20 mg tablet RxNorm: 577723 1 Tablet(s) PO daily 09/15/2016 12/23/2016 Inactive potassium chloride 2 0 mEq/15 mL oral liquid RxNorm: 397190 Milliliter(s) 30 Milliliter(s) (40mEq) PO daily 09/15/2016 01/12/2017 Inactive Lasix 20 mg tablet RxNorm: 317292 2 Tablet(s) PO daily 09/10/2016 09/12/2016 Inactive Lasix 20 mg tablet RxNorm: 436641 1 Tablet(s) PO daily 08/28/2016 08/30/2016 Inactive Lasix 20 mg tablet RxNorm: 1 Tablet(s) PO daily 08/20/2016 08/22/2016 Inactive Detrol LA 4 mg capsu le,extended release RxNorm: 827185 TAKE 1 CAPSULE BY JAVON TH ONCE DAILY 07/27/2016 02/18/2017 Inactive Generic For:DETROL LA 4MG C AP 07/27/2016 9:08:27 AM Coumadin 4 mg tablet RxNorm: 024680 1 Tablet(s) PO 3 x week wed and sun 07/27/2016 09/24/2016 In active omeprazole 20 mg cap sean,delayed release RxNorm: 718862 Capsule(s) PO TAKE 1 CAPSULE BY MOUTH ONCE DAILY 07/27/2016 01/22/2017 Inactive venlafaxine ER 75 mg capsule,extended release 24 hr RxNorm: 455111 1 Capsule(s) PO daily 06/29/2016 06/21/2017 Inactive sodium bicarbonate 6 50 mg tablet RxNorm: 135197 TAKE 2 TABLETS BY JAVON TH TWICE DAILY 06/29/2016 12/23/2016 In active 06/27/2016 9:05:39 AM Coumadin 4 mg tablet RxNorm: 007099 1 Tablet(s) PO 3 x week e th and sun 06/09/2016 06/08/2016 In active Coumadin 4 mg tablet RxNorm: 309076 1 Tablet(s) PO 3 x week e th and sun 06/09/2016 07/26/2016 In active Zetia 10 mg tablet RxNorm: 325044 1 Tablet(s) PO daily 06/09/2016 06/08/2016 Inactive gave 1 month of samples Zetia 10 mg tablet RxNorm: 435192 1 Tablet(s) PO daily 06/09/2016 09/24/2016 Inactive gave 1 month of samples Effexor 75 mg tablet RxNorm: 662834 1 Tablet(s) PO daily 06/08/2016 06/28/2016 Inactive spironolactone 25 mg tablet RxNorm: 281211 1 Tablet(s) PO daily 06/08/2016 05/23/2017 Inactive Synthroid 137 mcg ta blet RxNorm: 825147 1 Tablet(s) PO daily 05/07/2016 11/02/2016 Inactive allopurinol 300 mg t ablet RxNorm: 157655 Tablet(s) TAKE 1 TABL ET BY MOUTH ONCE DAILY. 04/28/2016 10/24/2016 Inactive clonazepam 0.5 mg ta blet RxNorm: 817988 1 Tablet(s) PO BID 04/20/2016 09/15/2016 Inactive Flonase Allergy Reli ef 50 mcg/actuation nasal spray,suspension RxNorm: 4392124 1 [place] NASAL BID 04/02/2016 No Stop Date Active Zithromax Z-Thomas 250 mg tablet RxNorm: 427780 Tablet(s) PO 04/02/2016 08/27/2016 Inactive cetirizine 10 mg tablet RxNorm: 6083305 1 Tablet(s) PO daily 04/02/2016 05/01/2016 Inactive Carafate 1 gram tablet RxNorm: 135103 Tablet(s) TAKE 1 TABLET TWICE A DAY FOR 30 DAYS 03/30/2016 10/25/2016 Inactive Generic For:CARAFATE 1GM 02/08/2015 12:3 6:39 PM Plavix 75 mg tablet RxNorm: 524406 1 Tablet(s) PO daily 03/11/2016 09/06/2016 Inactive sodium bicarbonate 6 50 mg tablet RxNorm: 506907 Tablet(s) 2 Tablet(s) PO BID 02/28/2016 06/26/2016 In active omeprazole 20 mg cap sean,delayed release RxNorm: 070173 Capsule(s) PO TAKE 1 CAPSULE BY MOUTH ONCE DAILY 01/31/2016 07/26/2016 Inactive Fish Oil 1,000 mg ca psule RxNorm: 1 Capsule(s) PO BID 01/14/2016 No Stop Date Active Synthroid 137 mcg ta blet RxNorm: 723371 1 Tablet(s) PO daily 01/14/2016 05/06/2016 Inactive Detrol LA 4 mg capsu le,extended release RxNorm: 568567 TAKE 1 CAPSULE BY JAOVN TH ONCE DAILY 12/30/2015 07/26/2016 Inactive Generic For:DETROL LA 4MG C AP 12/30/2015 9:11:01 AM potassium chloride 2 0 mEq/15 mL oral liquid RxNorm: 673924 Milliliter(s) 30 Milliliter(s) (40mEq) PO daily 12/02/2015 03/30/2016 Inactive sodium bicarbonate 6 50 mg tablet RxNorm: 406381 Tablet(s) 2 Tablet(s) PO BID 10/31/2015 02/27/2016 In active Lipitor 40 mg tablet RxNorm: 167338 1 Tablet(s) PO daily 10/09/2015 09/24/2016 Inactive sodium bicarbonate 6 50 mg tablet RxNorm: 196914 2 Tablet(s) PO BID 10/01/2015 10/30/2015 Inactive allopurinol 300 mg t ablet RxNorm: 975323 TAKE 1 TABLET BY MOUT H ONCE DAILY. 10/01/2015 04/27/2016 In active Generic For:ZYLOPRIM 300 MG TABLET 09/19 9:21:15 AM clonazepam 0.5 mg ta blet RxNorm: 450236 1 Tablet(s) PO BID 09/30/2015 04/19/2016 Inactive Coumadin 5 mg tablet RxNorm: 290104 1 Tablet(s) PO daily 09/27/2015 05/31/2017 Inactive Generic For:COUMADIN 5MG TAB N O T I C E PRESCRIPTION PREVIOUSLY AUTHORIZED BY DOCTOR:BOBBY ZULETA Synthroid 125 mcg ta blet RxNorm: 385004 1 Tablet(s) PO daily 09/27/2015 09/26/2015 Inactive Synthroid 125 mcg ta blet RxNorm: 160504 1 Tablet(s) PO daily 09/27/2015 01/13/2016 Inactive Carafate 1 gram tablet RxNorm: 172724 Tablet(s) TAKE 1 TABLET TWICE A DAY FOR 30 DAYS 09/02/2015 03/29/2016 Inactive Generic For:CARAFATE 1GM 02/08/2015 12:3 6:39 PM sodium bicarbonate 6 50 mg tablet RxNorm: 166124 2 Tablet(s) PO BID 09/02/2015 09/30/2015 Inactive Prilosec 20 mg capsu le,delayed release RxNorm: 448877 TAKE 1 CAPSULE BY JAVON TH ONCE DAILY 08/02/2015 01/28/2016 Inactive Generic For:PRILOSEC 20MG 08/02/2015 10:03:09 AM N O T I C E PRESCRIPTION PREVIOUSLY AUTHORIZED BY DOCTOR:BOBBY ZULETA Zyrtec 10 mg capsule RxNorm: 6987191 1 Capsule(s) PO daily 07/15/2015 08/13/2015 Inactive Keflex 500 mg capsule RxNorm: 279053 1 Capsule(s) PO TID 07/15/2015 07/21/2015 Inactive cetirizine 10 mg cap sean RxNorm: 2235052 1 Capsule(s) PO daily 07/15/2015 08/13/2015 Inactive hydrocodone 5 mg-humberto taminophen 325 mg tablet RxNorm: 811976 1-2 Tablet(s) PO Q6 P RN 06/10/2015 11/16/2016 In active sodium bicarbonate 6 50 mg tablet RxNorm: 984563 2 Tablet(s) PO BID 06/03/2015 08/31/2015 Inactive Detrol LA 4 mg capsu le,extended release RxNorm: 488876 TAKE 1 CAPSULE BY JAVON TH ONCE DAILY 06/03/2015 12/29/2015 Inactive Generic For:DETROL LA 4MG C AP N O T I C E PRESCRIPTION PREVIOUSLY AUTHORIZED BY DOCTOR:BOBBY ZULETA atenolol 50 mg tablet RxNorm: 731401 1 Tablet(s) PO daily TAKE 1 TABLET BY MO UTH DAILY 05/07/2015 08/23/2017 Inactive Generic For:TENORMIN 50MG 05/04/2015 9:07:22 AM spironolactone 25 mg tablet RxNorm: 936432 1 Tablet(s) PO daily 05/06/2015 06/07/2016 Inactive venlafaxine ER 75 mg capsule,extended release 24 hr RxNorm: 209487 1 Capsule(s) PO daily 05/04/2015 06/28/2016 Inactive atenolol 50 mg tablet RxNorm: 810730 TAKE 1 TABLET BY MOUTH DAILY 05/04/2015 05/06/2015 Inactive Generic For:TENORMIN 50MG 05/04/2015 9: 07:22 AM Synthroid 150 mcg ta blet RxNorm: 250333 TAKE 1 TABLET BY MOUT H ONCE DAILY. 04/05/2015 09/26/2015 In active Generic For:SYNTHROID 150MCG TAB 2014 4:45:40 PM N O T I C E PRESCRIPTION PREVIOUSLY AUTHORIZED BY DOCTOR:BOBBY ZULETA Effexor 75 mg tablet RxNorm: 626219 1 Tablet(s) PO daily 04/05/2015 07/03/2015 Inactive Coumadin 5 mg tablet RxNorm: 185205 TAKE 1 AND 1/2 TABLETS BY MOUTH ONCE MYRANDA LY 04/04/2015 09/26/2015 In active Generic For:COUMADIN 5MG TAB N O T I C E PRESCRIPTION PREVIOUSLY AUTHORIZED BY DOCTOR:BOBBY ZULETA clonazepam 0.5 mg ta blet RxNorm: 854156 1 Tablet(s) PO BID 03/13/2015 11/05/2015 Inactive sodium bicarbonate 6 50 mg tablet RxNorm: 327298 2 Tablet(s) PO BID 03/08/2015 06/02/2015 Inactive allopurinol 300 mg t ablet RxNorm: 845304 TAKE 1 TABLET BY MOUT H ONCE DAILY. 03/05/2015 09/30/2015 In active N O T I C E PRESCRIPTION PREVIOUSLY A UTHORIZED BY DOCTOR:BOBBY ZULETA Plavix 75 mg tablet RxNorm: 999591 1 Tablet(s) PO daily 02/12/2015 09/09/2015 Inactive clonazepam 0.5 mg ta blet RxNorm: 975567 1 Tablet(s) PO BID 02/11/2015 03/11/2015 Inactive Carafate 1 gram tablet RxNorm: 120024 TAKE 1 TABLET TWICE A DAY FOR 30 DAYS 02/08/2015 02/07/2015 In active Generic For:CARAFATE 1GM 02/08/2015 12:3 6:39 PM Carafate 1 gram tablet RxNorm: 799454 Tablet(s) TAKE 1 TABLET TWICE A DAY FOR 30 DAYS 02/08/2015 09/01/2015 Inactive Generic For:CARAFATE 1GM 02/08/2015 12:3 6:39 PM potassium chloride 2 0 mEq/15 mL oral liquid RxNorm: 058017 30 Milliliter(s) (40m Eq) PO daily 02/05/2015 12/01/2015 Inactive atenolol 50 mg tablet RxNorm: 295554 1 Tablet(s) PO daily 02/04/2015 05/03/2015 Inactive [SAVINGS FOR NON-COVERED DRUGS -- BIN:5, PCN: ASPROD1, Group: XXXXX, ID# XXXXXXX, Questions: . THIS IS NOT INSURANCE.] potassium chloride 2 0 mEq/15 mL oral liquid RxNorm: 159872 30 Milliliter(s) (40m Eq) PO daily 01/08/2015 02/04/2015 Inactive potassium chloride 2 0 mEq/15 mL oral liquid RxNorm: 896013 30 Milliliter(s) (40m Eq) PO daily 12/07/2014 01/07/2015 Inactive atenolol 50 mg tablet RxNorm: 525584 1 Tablet(s) PO daily 11/09/2014 11/08/2014 Inactive atenolol 50 mg tablet RxNorm: 411336 1 Tablet(s) PO daily 11/09/2014 02/03/2015 Inactive [SAVINGS FOR NON-COVERED DRUGS -- BIN:3584, PCN: ASPROD1, Group: XXXXX, ID# [id number], Questions: . THIS IS NOT INSURANCE.] cranberry 1,000 mg c apsule RxNorm: 468401 1 Capsule(s) PO daily No Start Date Active Voltaren 1 % topical gel RxNorm: 403535 TOP No St art Date Active verapamil ER (HS) 24 0 mg tablet,extended release 24 hr RxNorm: 145153 1 Tablet(s) PO daily No Start Date Active aspirin 81 mg tablet RxNorm: 473739 1 Tablet(s) PO daily No Start Date Active Zofran 4 mg tablet RxNorm: 600458 1 Tablet(s) PO PRN No Start Date Active B12 1000 mcg RxNorm: 1 Tablet(s) PO daily No Start Date Active magnesium oxide 400 mg capsule RxNorm: 847686 2 Capsule(s) PO BID No Start Date Active Synthroid 150 mcg ta blet RxNorm: 012111 1 Tablet(s) PO daily No Start Date 04/04/2015 Inactive Coumadin 5 mg tablet RxNorm: 727660 1 Tablet(s) PO daily No Start Date 04/03/2015 Inactive allopurinol 300 mg t ablet RxNorm: 365137 1 Tablet(s) PO daily No Start Date 03/04/2015 Inactive Prilosec 20 mg capsu le,delayed release RxNorm: 739994 1 Capsule(s) PO PRN No Start Date 08/01/2015 Inactive potassium chloride 2 0 mEq/15 mL oral liquid RxNorm: 258298 30 Milliliter(s) (40m Eq) PO daily No Start Date 12/06/2014 Inactive atenolol 50 mg tablet RxNorm: 019470 1 Tablet(s) PO daily No Start Date 08/29/2017 Inactive Lipitor 40 mg tablet RxNorm: 346179 1 Tablet(s) PO daily No Start Date 09/19/2017 Inactive Effexor 75 mg tablet RxNorm: 872896 1 Tablet(s) PO daily No Start Date 04/04/2015 Inactive Carafate 1 gram tablet RxNorm: 777499 1 Tablet(s) PO BID No Start Date 02/07/2015 Inactive clonazepam 0.5 mg ta blet RxNorm: 838404 1 Tablet(s) PO BID No Start Date 02/10/2015 Inactive Plavix 75 mg tablet RxNorm: 747104 1 Tablet(s) PO daily No Start Date 02/11/2015 Inactive sodium bicarbonate 6 50 mg tablet RxNorm: 092261 2 Tablet(s) PO BID No Start Date 09/01/2015 Inactive Lovenox 30 mg/0.3 mL subcutaneous syringe RxNorm: 569811 0.3 Milliliter(s) SQ Q12H No Start Date 03/15/2017 Inactive Fish Oil 1,000 mg ca psule RxNorm: 1 Capsule(s) PO daily No Start Date 01/13/2016 Inactive Detrol LA 4 mg capsu le,extended release RxNorm: 178936 1 Capsule(s) PO daily No Start Date 06/02/2015 Inactive Medication Administered No Medication Administered data Immunizations No Immunization data Assessments Condition Codes Effectiv e Dates Gastro-esophageal reflux disease without esophagitis ICD-10: K21.9 ICD-9: 530.81 01/18/2018 Localized edema ICD-10: R60.0 ICD-9: 782.3 01/18/2018 Hypothyroidism, unspecified ICD-10: E03.9 ICD-9: 244.9 01/04/2018 Essential (primary) hypertension ICD -10: I10 ICD-9: 401.9 01/04/2018 Impaired fasting glucose ICD-10: R73 .01 ICD-9: 790.21 01/04/2018 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 ICD-10: Z79.01 ICD-9: V58.61 09/23/2017 Right lower quadrant pain ICD-10: R1 [...] ICD-10: R53.83 ICD-9: 780.79 08/20/2016 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 ICD-10: Z79.899 ICD-9: [...] Reason For Visit Effective Dates Notes hypertension 01/18/2018 hypertension 01/04/2018 hypertension 09/23/2017 hypertension 05/27/2017 pre-op/surgery consult 02/24/2017 hypertension 11/02/2016 hypertension 09/30/2016 edema 09/10/2016 medication follow up 08/20/2016 medication follow up 06/08/2016 cough 04/02/2016 abdominal pain 01/14/2016 shoulder pain 10/02/2015 edema 07/15/2015 weight gain/obesity 06/10/2015 hernia 01/22/2015 right sided abdomen with previous ileostomy Results Observation Observation Code Item Item Code Result Date Comp Metabolic Ccn957 NA 141 mEq/L 01/05/2018 Comp Metabolic Thg429 K 3.7 mEq/L 01/05/2018 Comp Metabolic Tql065 CL 102 mEq/L 01/05/2018 Comp Metabolic Jbe462 CO2 29.0 mEq/L 01/05/2018 Comp Metabolic Yhi709 AN ION GAP 14 01/05/2018 Comp Metabolic Bbx614 GL UCOSE 136 mg/dL 01/05/2018 Comp Metabolic Sep766 Cr eat 1.0 mg/dL 01/05/2018 Comp Metabolic Iqq410 eG FR 61 ml/min/1.73m2 01/05 Comp Metabolic Vpq645 BUN 22 mg/dL 01/05/2018 Comp Metabolic Xbs105 B/ C Ratio 22.9 Ratio 01/05/2018 Comp Metabolic Cdh176 CA LCIUM 9.7 mg/dL 01/05/2018 Comp Metabolic Wgz527 AL K PHOS 57 U/L 01/05/2018 Comp Metabolic Ufh085 T(SGOT) 21 U/L 01/05/2018 Comp Metabolic Mue779 AL T(SGPT) 19 U/L 01/05/2018 Comp Metabolic Era358 BI LI T 0.9 mg/dL 01/05/2018 Comp Metabolic Njh791 AL BUMIN 4.1 g/dL 01/05/2018 Comp Metabolic Tof072 TP RO 7.1 g/dL 01/05/2018 Comp Metabolic Rxi882 GL OB 3.0 g/dL 01/05/2018 Comp Metabolic Ysy164 A/ G Ratio 1.4 Ratio 01/05/2018 Comp Metabolic Vmt740 Os mo 287 mOsmo 01/05/2018 Free T4 Bbg099 FREE T4 1.05 ng/dL 01/05/2018 %Hba1C Bkr960 % HbA1c 07916-5 6.0 % 01/05/2018 %Hba1C Cfm734 Gluc Ave 126 mg/dL 01/05/2018 Cbc With [...] 27.3 % 01/05/2018 Cbc With Differential Ord2 [place]% 10.5 % 01/05/2018 Cbc With Differential Ord2 [...] 1.27 K/ul 01/05/2018 Cbc With Differential Ord2 [place] ABS# 0.5 K/ul 01/05/2018 Cbc With Differential Ord2 Eos ABS# 0.2 K/ul 01/05/2018 Cbc With Differential Ord2 Baso ABS# 0.1 K/ul 01/05/2018 Pt Jdb9350 PT 20.7 seconds 01/05/2018 Pt Pwd9639 INR 1.8 01/05/2018 Pt Txx2037 Low Intensity - 1.5-2.0 01/05/2018 Pt Uck3141 Mod intensity - 2.0-3.0 01/05/2018 Pt Qex2491 Hi intensity - 3.0-4.0 01/05/2018 Tsh Ord6 TSH (3rd IS) 2.34 uIU/mL 01/05/2018 Lipid Ord30 CHOL 156 mg/dL 01/05/2018 Lipid Ord30 HDL 48.0 mg/dl 01/05/2018 Lipid Ord30 TRIG 207 mg/dL 01/05/2018 Lipid Ord30 LDL 67 mg/dL 01/05/2018 Lipid Ord30 C/HDL 3.3 Ratio 01/05/2018 Pt Efm3881 PT 28.3 seconds 11/26/2017 Pt Spp8786 INR 2.6 11/26/2017 Pt Jew8729 Low Intensity - 1.5-2.0 11/26/2017 Pt Odp2390 Mod intensity - 2.0-3.0 11/26/2017 Pt Zvy8608 Hi intensity - 3.0-4.0 11/26/2017 Pt Ywn0366 PT 36.5 seconds 11/19/2017 Pt Jfd0272 INR 3.6 11/19/2017 Pt Ujy2873 Low Intensity - 1.5-2.0 11/19/2017 Pt Ozg0263 Mod intensity - 2.0-3.0 11/19/2017 Pt Ion2685 Hi intensity - 3.0-4.0 11/19/2017 Pt Chn5957 PT 22.9 seconds 10/15/2017 Pt Cml3012 INR 2.0 10/15/2017 Pt Plo3606 Low Intensity - 1.5-2.0 10/15/2017 Pt Phs7108 Mod intensity - 2.0-3.0 10/15/2017 Pt Eyk7301 Hi intensity - 3.0-4.0 10/15/2017 Pt Dnj6182 PT 25.9 seconds 10/01/2017 Pt Yms7809 INR 2.4 10/01/2017 Pt Urn0185 Low Intensity - 1.5-2.0 10/01/2017 Pt Sfw1104 Mod intensity - 2.0-3.0 10/01/2017 Pt Xzp6510 Hi intensity - 3.0-4.0 10/01/2017 Pt Wux8582 PT 20.6 seconds 09/24/2017 Pt Rpq9330 INR 1.8 09/24/2017 Pt Jfv3004 Low Intensity - 1.5-2.0 09/24/2017 Pt Nyi0037 Mod intensity - 2.0-3.0 09/24/2017 Pt Gts7273 Hi intensity - 3.0-4.0 09/24/2017 Pt Wnh0340 PT 21.0 seconds 09/15/2017 Pt Tun7238 INR 1.8 09/15/2017 Pt Sbw6411 Low Intensity - 1.5-2.0 09/15/2017 Pt Rkj9464 Mod intensity - 2.0-3.0 09/15/2017 Pt Vay8125 Hi intensity - 3.0-4.0 09/15/2017 Pt Lqg7118 PT 19.0 seconds 09/03/2017 Pt Aoa8221 INR 1.6 09/03/2017 Pt Vxs0825 Low Intensity - 1.5-2.0 09/03/2017 Pt Dgd6155 Mod intensity - 2.0-3.0 09/03/2017 Pt Cqe9573 Hi intensity - 3.0-4.0 09/03/2017 Pt Gfa0671 PT 17.6 seconds 08/23/2017 Pt Gia7599 INR 1.5 08/23/2017 Pt Pww2504 Low Intensity - 1.5-2.0 08/23/2017 Pt Yxc4510 Mod intensity - 2.0-3.0 08/23/2017 Pt Xsu0513 Hi intensity - 3.0-4.0 08/23/2017 Pt Hdr0821 PT 12.7 seconds 08/20/2017 Pt Wdw0752 INR 1.0 08/20/2017 Pt Zeq6454 Low Intensity - 1.5-2.0 08/20/2017 Pt Dcr2693 Mod intensity - 2.0-3.0 08/20/2017 Pt Ekx7339 Hi intensity - 3.0-4.0 08/20/2017 Pt Izk5615 PT 12.9 seconds 08/17/2017 Pt Pzg9528 INR 1.0 08/17/2017 Pt Jzy9913 Low Intensity - 1.5-2.0 08/17/2017 Pt Tok9330 Mod intensity - 2.0-3.0 08/17/2017 Pt Rvw3064 Hi intensity - 3.0-4.0 08/17/2017 Pt Jsl7543 PT 18.5 seconds 08/10/2017 Pt Jxv7794 INR 1.6 08/10/2017 Pt Ils9455 Low Intensity - 1.5-2.0 08/10/2017 Pt Hfb3459 Mod intensity - 2.0-3.0 08/10/2017 Pt Hca2404 Hi intensity - 3.0-4.0 08/10/2017 Tsh Ord6 [...] 29.3 pg 05/27/2017 Cbc With Differential Ord2 [place]% 8.1 % 05/27/2017 Cbc With Differential Ord2 [...] 1.11 K/ul 05/27/2017 Cbc With Differential Ord2 [place] ABS# 0.6 K/ul 05/27/2017 Cbc With Differential Ord2 Eos ABS# 0.2 K/ul 05/27/2017 Cbc With Differential Ord2 Baso ABS# 0.1 K/ul 05/27/2017 Pt Riy6815 PT 28.2 seconds 05/27/2017 Pt Wcp4569 INR 2.6 05/27/2017 Pt Yfk2021 Low Intensity - 1.5-2.0 05/27/2017 Pt Dca2746 Mod intensity - 2.0-3.0 05/27/2017 Pt Fgc4794 Hi intensity - 3.0-4.0 05/27/2017 Lipid Ord30 CHOL 167 mg/dL 05/27/2017 Lipid Ord30 HDL 49.0 mg/dl 05/27/2017 Lipid Ord30 TRIG 347 mg/dL 05/27/2017 Lipid Ord30 LDL 49 mg/dL 05/27/2017 Lipid Ord30 C/HDL 3.4 Ratio 05/27/2017 Magnesium Ord90 Mag 1.4 mg/dL 05/27/2017 %Hba1C Kay569 % HbA1c 78219-8 5.9 % 05/27/2017 %Hba1C Ufb514 Gluc Ave 123 mg/dL 05/27/2017 Comp Metabolic Ksp671 NA 138 mEq/L 05/27/2017 Comp Metabolic Gsg322 K 4.1 mEq/L 05/27/2017 Comp Metabolic Upc278 CL 101 mEq/L 05/27/2017 Comp Metabolic Tbq024 CO2 31.0 mEq/L 05/27/2017 Comp Metabolic Eah881 AN ION GAP 10 05/27/2017 Comp Metabolic Jsd535 GL UCOSE 117 mg/dL 05/27/2017 Comp Metabolic Lot642 Cr eat 0.9 mg/dL 05/27/2017 Comp Metabolic Rtq631 eG FR 62 ml/min/1.73m2 05/27 Comp Metabolic Uel156 BUN 25 mg/dL 05/27/2017 Comp Metabolic Iak434 B/ C Ratio 26.6 Ratio 05/27/2017 Comp Metabolic Drd032 CA LCIUM 9.5 mg/dL 05/27/2017 Comp Metabolic Anw003 AL K PHOS 73 U/L 05/27/2017 Comp Metabolic Lxk161 T(SGOT) 18 U/L 05/27/2017 Comp Metabolic Ilf926 AL T(SGPT) 12 U/L 05/27/2017 Comp Metabolic Opf466 BI LI T 0.5 mg/dL 05/27/2017 Comp Metabolic Onv698 AL BUMIN 4.1 g/dL 05/27/2017 Comp Metabolic Yca112 TP RO 7.1 g/dL 05/27/2017 Comp Metabolic Vhb976 GL OB 3.0 g/dL 05/27/2017 Comp Metabolic Pvi589 A/ G Ratio 1.3 Ratio 05/27/2017 Comp Metabolic Rvn170 Os mo 281 mOsmo 05/27/2017 Free T4 Czf213 FREE T4 0.91 ng/dL 05/27/2017 Pt Sln5308 PT 29.2 seconds 04/16/2017 Pt Qni9043 INR 2.7 04/16/2017 Pt Dxd9591 Low Intensity - 1.5-2.0 04/16/2017 Pt Bfa9657 Mod intensity - 2.0-3.0 04/16/2017 Pt Hvy6992 Hi intensity - 3.0-4.0 04/16/2017 Pt Xvc8415 PT 30.7 seconds 03/31/2017 Pt Zex4265 INR 2.9 03/31/2017 Pt Fui0315 Low Intensity - 1.5-2.0 03/31/2017 Pt Vop1041 Mod intensity - 2.0-3.0 03/31/2017 Pt Qlz6496 Hi intensity - 3.0-4.0 03/31/2017 Pt Ein8594 PT 21.3 seconds 03/26/2017 Pt Icf7221 INR 1.9 03/26/2017 Pt Frh7711 Low Intensity - 1.5-2.0 03/26/2017 Pt Ihy0641 Mod intensity - 2.0-3.0 03/26/2017 Pt Igv0526 Hi intensity - 3.0-4.0 03/26/2017 Pt Uzq5576 PT 19.8 seconds 03/22/2017 Pt Yof8294 INR 1.7 03/22/2017 Pt Fxp8691 Low Intensity - 1.5-2.0 03/22/2017 Pt Zor0837 Mod intensity - 2.0-3.0 03/22/2017 Pt Orc3267 Hi intensity - 3.0-4.0 03/22/2017 Pt Vsq4661 PT 15.6 seconds 03/19/2017 Pt Mns9130 INR 1.3 03/19/2017 Pt Vcl6168 Low Intensity - 1.5-2.0 03/19/2017 Pt Fpf9204 Mod intensity - 2.0-3.0 03/19/2017 Pt Ovk6503 Hi intensity - 3.0-4.0 03/19/2017 Pt Zci3249 PT 13.7 seconds 03/15/2017 Pt Jme3618 INR 1.1 03/15/2017 Pt Pwh5503 Low Intensity - 1.5-2.0 03/15/2017 Pt Wob5174 Mod intensity - 2.0-3.0 03/15/2017 Pt Uxo4355 Hi intensity - 3.0-4.0 03/15/2017 Pt Kom1336 PT 25.8 seconds 01/28/2017 Pt Xsh9332 INR 2.4 01/28/2017 Pt Sgu1162 Low Intensity - 1.5-2.0 01/28/2017 Pt Cke3634 Mod intensity - 2.0-3.0 01/28/2017 Pt Itr3980 Hi intensity - 3.0-4.0 01/28/2017 %Hba1C Zvr140 % HbA1c 49752-2 6.4 % 10/23/2016 %Hba1C Rbs465 Gluc Ave 137 mg/dL 10/23/2016 Comp Metabolic Icc994 NA 138 mEq/L 10/23/2016 Comp Metabolic Ngh937 K 3.4 mEq/L 10/23/2016 Comp Metabolic Znl855 CL 100 mEq/L 10/23/2016 Comp Metabolic Aoq921 CO2 30.0 mEq/L 10/23/2016 Comp Metabolic Dnr806 AN ION GAP 11 10/23/2016 Comp Metabolic Mcb192 GL UCOSE 139 mg/dL 10/23/2016 Comp Metabolic Yqg337 Cr eat 0.9 mg/dL 10/23/2016 Comp Metabolic Bym848 eG FR 62 ml/min/1.73m2 10/23 Comp Metabolic Rsy973 BUN 22 mg/dL 10/23/2016 Comp Metabolic Lxw508 B/ C Ratio 23.4 Ratio 10/23/2016 Comp Metabolic Ltg206 CA LCIUM 8.7 mg/dL 10/23/2016 Comp Metabolic Zmv296 AL K PHOS 66 U/L 10/23/2016 Comp Metabolic Ibs985 T(SGOT) 20 U/L 10/23/2016 Comp Metabolic Eti800 AL T(SGPT) 10 U/L 10/23/2016 Comp Metabolic Dzc708 BI LI T 0.5 mg/dL 10/23/2016 Comp Metabolic Thx507 AL BUMIN 3.5 g/dL 10/23/2016 Comp Metabolic Wcy002 TP RO 6.3 g/dL 10/23/2016 Comp Metabolic Zsb641 GL OB 2.8 g/dL 10/23/2016 Comp Metabolic Dpm144 A/ G Ratio 1.3 Ratio 10/23/2016 Comp Metabolic Osy974 Os mo 281 mOsmo 10/23/2016 Pt Iod8275 PT 26.8 seconds 10/23/2016 Pt Tqk8285 INR 2.7 10/23/2016 Pt Gze4278 Low Intensity - 1.5-2.0 10/23/2016 Pt Dke0881 Mod intensity - 2.0-3.0 10/23/2016 Pt Aqf5624 Hi intensity - 3.0-4.0 10/23/2016 Pt Bgo1521 PT 28.3 seconds 09/25/2016 Pt Raq1361 INR 2.8 09/25/2016 Pt Dnp5803 Low Intensity - 1.5-2.0 09/25/2016 Pt Xsx5287 Mod intensity - 2.0-3.0 09/25/2016 Pt Dnk7970 Hi intensity - 3.0-4.0 09/25/2016 Metabolic Ord15 [...] Metabolic Ord15 CALCIUM 8.8 mg/dL 09/25/2016 Pt Pbn0418 PT 30.6 seconds 09/11/2016 Pt Mml0160 INR 3.2 09/11/2016 Pt Uvk3443 Low Intensity - 1.5-2.0 09/11/2016 Pt Azb9082 Mod intensity - 2.0-3.0 09/11/2016 Pt Mrg5912 Hi intensity - 3.0-4.0 09/11/2016 Comp Metabolic Sfw945 NA 138 mEq/L 09/11/2016 Comp Metabolic Xwv977 K 4.4 mEq/L 09/11/2016 Comp Metabolic Oln936 CL 103 mEq/L 09/11/2016 Comp Metabolic Zym681 CO2 31.0 mEq/L 09/11/2016 Comp Metabolic Oba438 AN ION GAP 8 09/11/2016 Comp Metabolic Hlf971 GL UCOSE 146 mg/dL 09/11/2016 Comp Metabolic Jmm502 Cr eat 1.0 mg/dL 09/11/2016 Comp Metabolic Snq860 eG FR 60 ml/min/1.73m2 09/11 Comp Metabolic Peu759 BUN 16 mg/dL 09/11/2016 Comp Metabolic Xdi991 B/ C Ratio 16.5 Ratio 09/11/2016 Comp Metabolic Efm494 CA LCIUM 8.7 mg/dL 09/11/2016 Comp Metabolic Zcs818 AL K PHOS 52 U/L 09/11/2016 Comp Metabolic Gtk654 T(SGOT) 19 U/L 09/11/2016 Comp Metabolic Oyu784 AL T(SGPT) 11 U/L 09/11/2016 Comp Metabolic Oak924 BI LI T 0.7 mg/dL 09/11/2016 Comp Metabolic Nak850 AL BUMIN 3.3 g/dL 09/11/2016 Comp Metabolic Vei662 TP RO 5.8 g/dL 09/11/2016 Comp Metabolic Zvk272 GL OB 2.5 g/dL 09/11/2016 Comp Metabolic Hgs782 A/ G Ratio 1.3 Ratio 09/11/2016 Comp Metabolic Sib581 Os mo 280 mOsmo 09/11/2016 C-Reactive Protein Qnt Crqnt CRP 0.1 mg/dl 08/21/2016 Comp Metabolic Tak037 NA 139 mEq/L 08/21/2016 Comp Metabolic Ivh964 K 4.1 mEq/L 08/21/2016 Comp Metabolic Ezm792 CL 102 mEq/L 08/21/2016 Comp Metabolic Txo072 CO2 30.0 mEq/L 08/21/2016 Comp Metabolic Qbx074 AN ION GAP 11 08/21/2016 Comp Metabolic Vht136 GL UCOSE 148 mg/dL 08/21/2016 Comp Metabolic Jgv629 Cr eat 1.0 mg/dL 08/21/2016 Comp Metabolic Mur637 eG FR 55 ml/min/1.73m2 08/21 Comp Metabolic Pzl160 BUN 21 mg/dL 08/21/2016 Comp Metabolic Rxw383 B/ C Ratio 20.2 Ratio 08/21/2016 Comp Metabolic Xfe840 CA LCIUM 9.4 mg/dL 08/21/2016 Comp Metabolic Arn389 AL K PHOS 63 U/L 08/21/2016 Comp Metabolic Ozk255 T(SGOT) 23 U/L 08/21/2016 Comp Metabolic Jiw381 AL T(SGPT) 16 U/L 08/21/2016 Comp Metabolic Hqf795 BI LI T 0.6 mg/dL 08/21/2016 Comp Metabolic Afm411 AL BUMIN 3.9 g/dL 08/21/2016 Comp Metabolic Ynk596 TP RO 6.8 g/dL 08/21/2016 Comp Metabolic Mhq042 GL OB 2.9 g/dL 08/21/2016 Comp Metabolic Xud266 A/ G Ratio 1.4 Ratio 08/21/2016 Comp Metabolic Cnw602 Os mo 283 mOsmo 08/21/2016 Sed Rate Ord21 ESR 16 mm/hr 08/21/2016 Pt Hra5236 PT 27.2 seconds 08/21/2016 Pt Yht5977 INR 2.7 08/21/2016 Pt Jcm9079 Low Intensity - 1.5-2.0 08/21/2016 Pt Aov6351 Mod intensity - 2.0-3.0 08/21/2016 Pt Qzk4137 Hi intensity - 3.0-4.0 08/21/2016 Magnesium Ord90 Mag 1.9 mg/dL 08/21/2016 Pt Hoy9977 PT 25.9 seconds 06/17/2016 Pt Odu8125 INR 2.5 06/17/2016 Pt Yog4274 Low Intensity - 1.5-2.0 06/17/2016 Pt Nto8383 Mod intensity - 2.0-3.0 06/17/2016 Pt Fmj3921 Hi intensity - 3.0-4.0 06/17/2016 Tsh Ord6 hTSH II 2.13 uIU/mL 06/08/2016 Free T4 Urh731 FREE T4 0.79 ng/dL 06/08/2016 Cbc With [...] 80.8 fl 06/08/2016 Cbc With Differential Ord2 [place]% 12.0 % 06/08/2016 Cbc With Differential Ord2 [...] 1.40 K/ul 06/08/2016 Cbc With Differential Ord2 [place] ABS# 0.7 K/ul 06/08/2016 Cbc With Differential Ord2 Eos ABS# 0.3 K/ul 06/08/2016 Cbc With Differential Ord2 Baso ABS# 0.1 K/ul 06/08/2016 %Hba1C Yfz879 % HbA1c 29962-4 6.2 % 06/08/2016 %Hba1C Xvu001 Gluc Ave 131 mg/dL 06/08/2016 Comp Metabolic Sbp835 NA 138 mEq/L 06/08/2016 Comp Metabolic Pvc393 K 3.9 mEq/L 06/08/2016 Comp Metabolic Jop928 CL 105 mEq/L 06/08/2016 Comp Metabolic Vat867 CO2 27.0 mEq/L 06/08/2016 Comp Metabolic Pff999 AN ION GAP 10 06/08/2016 Comp Metabolic Qin834 GL UCOSE 127 mg/dL 06/08/2016 Comp Metabolic Fsf687 Cr eat 1.0 mg/dL 06/08/2016 Comp Metabolic Bor388 eG FR 59 ml/min/1.73m2 06/08 Comp Metabolic Vce919 BUN 19 mg/dL 06/08/2016 Comp Metabolic Vta344 B/ C Ratio 19.4 Ratio 06/08/2016 Comp Metabolic Pya171 CA LCIUM 9.2 mg/dL 06/08/2016 Comp Metabolic Zuf205 AL K PHOS 77 U/L 06/08/2016 Comp Metabolic Dzj598 T(SGOT) 19 U/L 06/08/2016 Comp Metabolic Mek389 AL T(SGPT) 13 U/L 06/08/2016 Comp Metabolic Sdi545 BI LI T 0.5 mg/dL 06/08/2016 Comp Metabolic Oce738 AL BUMIN 3.8 g/dL 06/08/2016 Comp Metabolic Rat926 TP RO 6.6 g/dL 06/08/2016 Comp Metabolic Jtq858 GL OB 2.8 g/dL 06/08/2016 Comp Metabolic Wpe654 A/ G Ratio 1.4 Ratio 06/08/2016 Comp Metabolic Atn965 Os mo 280 mOsmo 06/08/2016 Pt Ezb0630 PT 36.1 seconds 06/08/2016 Pt Ebj9271 INR 3.9 06/08/2016 Pt Eon0109 Low Intensity - 1.5-2.0 06/08/2016 Pt Bpa0612 Mod intensity - 2.0-3.0 06/08/2016 Pt Wcx2577 Hi intensity - 3.0-4.0 06/08/2016 Lipid Ord30 CHOL 149 mg/dL 06/08/2016 Lipid Ord30 HDL 46.0 mg/dl 06/08/2016 Lipid Ord30 TRIG 279 mg/dL 06/08/2016 Lipid Ord30 LDL 47 mg/dL 06/08/2016 Lipid Ord30 C/HDL 3.2 Ratio 06/08/2016 Pt Kuv6858 PT 30.9 seconds 02/12/2016 Pt Oqa2566 INR 3.2 02/12/2016 Pt Nuh3144 Low Intensity - 1.5-2.0 02/12/2016 Pt Lnf4682 Mod intensity - 2.0-3.0 02/12/2016 Pt Xyq3117 Hi intensity - 3.0-4.0 02/12/2016 Free T4 Gnd037 FREE T4 1.24 ng/dL 09/27/2015 %Hba1C Yzx993 % HbA1c 53573-4 6.4 % 09/27/2015 %Hba1C Esi220 Gluc Ave 137 mg/dL 09/27/2015 Tsh Ord6 hTSH II 0.37 uIU/mL 09/27/2015 Pt Crj6068 PT 26.2 seconds 09/27/2015 Pt Hlk1013 INR 2.5 09/27/2015 Pt Efs2429 Low Intensity - 1.5-2.0 09/27/2015 Pt Xeo4056 Mod intensity - 2.0-3.0 09/27/2015 Pt Glz3374 Hi intensity - 3.0-4.0 09/27/2015 Pt Mjh7181 PT 27.6 seconds 2015 Pt Pbr3161 INR 2.7 2015 Pt Fuw3836 Low Intensity - 1.5-2.0 2015 Pt Bui3564 Mod intensity - 2.0-3.0 2015 Pt Qqe3918 Hi intensity - 3.0-4.0 2015 %Hba1C Mnc800 % HbA1c 06073-4 6.1 % 06/11/2015 %Hba1C Tex563 Gluc Ave 128 mg/dL 06/11/2015 Cbc With [...] Ord2 RDW 15.8 % 06/10/2015 Comp Metabolic Pen222 NA 139 mEq/L 06/10/2015 Comp Metabolic Eyl925 K 4.1 mEq/L 06/10/2015 Comp Metabolic Yqo483 CL 105 mEq/L 06/10/2015 Comp Metabolic Arn031 CO2 27.0 mEq/L 06/10/2015 Comp Metabolic Jab905 AN ION GAP 11 06/10/2015 Comp Metabolic Nfa524 GL UCOSE 127 mg/dL 06/10/2015 Comp Metabolic Vbr507 Cr eat 1.0 mg/dL 06/10/2015 Comp Metabolic Lcn039 eG FR 59 ml/min/1.73m2 06/10 Comp Metabolic Gfu300 BUN 21 mg/dL 06/10/2015 Comp Metabolic Xjp268 B/ C Ratio 21.2 Ratio 06/10/2015 Comp Metabolic Nhz160 CA LCIUM 9.2 mg/dL 06/10/2015 Comp Metabolic Zue410 AL K PHOS 87 U/L 06/10/2015 Comp Metabolic Grx886 T(SGOT) 20 U/L 06/10/2015 Comp Metabolic Gry064 AL T(SGPT) 17 U/L 06/10/2015 Comp Metabolic Xqj897 BI LI T 0.4 mg/dL 06/10/2015 Comp Metabolic Cdk010 AL BUMIN 4.1 g/dL 06/10/2015 Comp Metabolic Zoo162 TP RO 7.2 g/dL 06/10/2015 Comp Metabolic Iak073 GL OB 3.1 g/dL 06/10/2015 Comp Metabolic Ggi514 A/ G Ratio 1.3 Ratio 06/10/2015 Comp Metabolic Aze894 Os mo 282 mOsmo 06/10/2015 Tsh Ord6 hTSH II 0.86 uIU/mL 06/10/2015 Lipid Ord30 CHOL 161 mg/dL 06/10/2015 Lipid Ord30 HDL 49.0 mg/dl 06/10/2015 Lipid Ord30 TRIG 208 mg/dL 06/10/2015 Lipid Ord30 LDL 70 mg/dL 06/10/2015 Lipid Ord30 C/HDL 3.3 Ratio 06/10/2015 Pt Gut6891 PT 25.0 seconds 04/09/2015 Pt Edm9079 INR 2.4 04/09/2015 Pt Hqd4427 Low Intensity - 1.5-2.0 04/09/2015 Pt Eve7022 Mod intensity - 2.0-3.0 04/09/2015 Pt Lmz9512 Hi intensity - 3.0-4.0 04/09/2015 Free T4 Myy649 FREE T4 1.05 ng/dL 01/22/2015 Pt Yfs3701 PT 27.2 seconds 01/22/2015 Pt Xuj5687 INR 2.6 01/22/2015 Pt Cls0051 Low Intensity - 1.5-2.0 01/22/2015 Pt Dcd1204 Mod intensity - 2.0-3.0 01/22/2015 Pt Giw7755 Hi intensity - 3.0-4.0 01/22/2015 Cbc With [...] Differential Ord2 RDW 15.2 % 01/22/2015 B12 Lww215 B12 402.00 pg/ml 01/22/2015 Tsh Ord6 hTSH II 0.65 uIU/mL 01/22/2015 Lipid Ord30 CHOL 166 mg/dL 01/22/2015 Lipid Ord30 HDL 48.0 mg/dl 01/22/2015 Lipid Ord30 TRIG 264 mg/dL 01/22/2015 Lipid Ord30 LDL 65 mg/dL 01/22/2015 Lipid Ord30 C/HDL 3.5 Ratio 01/22/2015 Comp Metabolic Bft559 NA 138 mEq/L 01/22/2015 Comp Metabolic Zhr742 K 4.1 mEq/L 01/22/2015 Comp Metabolic Iqu719 CL 104 mEq/L 01/22/2015 Comp Metabolic Eje556 CO2 29.0 mEq/L 01/22/2015 Comp Metabolic Gcp336 AN ION GAP 9 01/22/2015 Comp Metabolic Loj386 GL UCOSE 106 mg/dL 01/22/2015 Comp Metabolic Ghp786 Cr eat 0.9 mg/dL 01/22/2015 Comp Metabolic Igs007 eG FR 63 ml/min/1.73m2 01/22 Comp Metabolic Zgy016 BUN 21 mg/dL 01/22/2015 Comp Metabolic Rpp100 B/ C Ratio 22.3 Ratio 01/22/2015 Comp Metabolic Pig736 CA LCIUM 9.4 mg/dL 01/22/2015 Comp Metabolic Dnx353 AL K PHOS 83 U/L 01/22/2015 Comp Metabolic Fkm002 T(SGOT) 23 U/L 01/22/2015 Comp Metabolic Wxu621 AL T(SGPT) 18 U/L 01/22/2015 Comp Metabolic Usn555 BI LI T 0.8 mg/dL 01/22/2015 Comp Metabolic Zgt265 AL BUMIN 4.2 g/dL 01/22/2015 Comp Metabolic Tjd417 TP RO 7.3 g/dL 01/22/2015 Comp Metabolic Lok254 GL OB 3.1 g/dL 01/22/2015 Comp Metabolic Plw221 A/ G Ratio 1.4 Ratio 01/22/2015 Comp Metabolic Xdn738 Os mo 279 mOsmo 01/22/2015 Review of Systems System Result Effective Dates Constitutional No recent illness 01/18/2018 Constitutional No [...] dentition 01/04/2018 None Full Exam - General 1995 [...] affect 01/22/2015 None Full Exam - General 1995 Abdomen abdominal exam Contour: protuberant 01/22/2015 left sided hernia - large hernia - mildl y TTP Procedures Procedure Codes Date URINALYSIS NONAUTO W /O SCOPE CPT-4: 45718 03/05/2017 Vital Signs Date Vital 01/18/2018 Blood Pressure 1: 132/74 Code: 8480-6 BMI: 43.5 Code: 67965-3 Heart Rate 1: 70 bpm Height: 5'1" SpO2: 97% Weight: 230 lbs 01/04/2018 Blood Pressure 1: 134/76 Code: 8480-6 BMI: 42.7 Code: 30099-7 Heart Rate 1: 83 bpm Height: 5'1" SpO2: 98% Weight: 226 lbs 09/23/2017 Blood Pressure 1: 124/76 Code: 8480-6 BMI: 42.3 Code: 54553-2 Heart Rate 1: 94 bpm Height: 5'1" SpO2: 96% Weight: 224 lbs 05/27/2017 Blood Pressure 1: 146/78 Code: 8480-6 BMI: 41.4 Code: 33143-8 Heart Rate 1: 85 bpm Height: 5'1" SpO2: 98% Weight: 219 lbs 02/24/2017 Blood Pressure 1: 138/66 Code: 8480-6 BMI: 41.4 Code: 56487-6 Heart Rate 1: 78 bpm Height: 5'1" SpO2: 97% Weight: 219 lbs 11/02/2016 Blood Pressure 1: 144/72 Code: 8480-6 BMI: 46.1 Code: 73161-8 Heart Rate 1: 78 bpm Height: 5'1" SpO2: 98% Weight: 244 lbs 09/30/2016 Blood Pressure 1: 130/76 Code: 8480-6 BMI: 45.0 Code: 94962-9 Heart Rate 1: 86 bpm Height: 5'1" SpO2: 98% Weight: 238 lbs 09/10/2016 Blood Pressure 1: 136/68 Code: 8480-6 BMI: 46.3 Code: 60677-4 Heart Rate 1: 83 bpm Height: 5'1" SpO2: 98% Weight: 245 lbs 08/20/2016 Blood Pressure 1: 142/78 Code: 8480-6 BMI: 45.3 Code: 63752-4 Heart Rate 1: 84 bpm Height: 5'1" SpO2: 99% Weight: 240 lbs 06/08/2016 Blood Pressure 1: 134/76 Code: 8480-6 BMI: 44.2 Code: 18361-7 Heart Rate 1: 86 bpm Height: 5'1" SpO2: 96% Weight: 234 lbs 04/02/2016 Blood Pressure 1: 142/70 Code: 8480-6 BMI: 44.6 Code: 98046-5 Heart Rate 1: 78 bpm Height: 5'1" SpO2: 97% Weight: 236 lbs 01/14/2016 Blood Pressure 1: 146/72 Code: 8480-6 BMI: 44.2 Code: 66047-3 Heart Rate 1: 86 bpm Height: 5'1" SpO2: 96% Weight: 234 lbs 10/02/2015 Blood Pressure 1: 158/76 Code: 8480-6 BMI: 44.2 Code: 17538-8 Heart Rate 1: 67 bpm Height: 5'1" SpO2: 97% Weight: 234 lbs 07/15/2015 Blood Pressure 1: 148/78 Code: 8480-6 Blood Pressure 1: 200/90 Code: 8480-6 BMI: 44.0 Code: 56184-2 Heart Rate 1: 89 bpm Height: 5'1" SpO2: 97% Weight: 233 lbs 06/10/2015 Blood Pressure 1: 140/82 Code: 8480-6 BMI: 44.0 Code: 34088-2 Heart Rate 1: 78 bpm Height: 5'1" SpO2: 93% Weight: 233 lbs 01/22/2015 Blood Pressure 1: 136/64 Code: 8480-6 Heart Rate 1: 82 bpm Height: SpO2: 98% Weight: 225 lbs Functional Status No Functional Status data History of Present Illness Symptom Name Status Resu lt Effective Date Notes hypertension Quality int ermittent 01/18/2018 None hypertension [...] wearing crocs and there was a new [place] on the floor: her foot didn't move [...] Encounters Encounter Performer Loca tion Codes Date ([id number]) [id number] EST. P BIANCA, LEVEL III Diagnosis: Localized edema[ICD10: R60.0] Diagnosis: Gastro-esophageal reflux disease without esophagitis[ICD10: K21.9] Edna Almanza MD, [facility] CPT-4: 96873 01/18/2018 [id number]) [id number] EST. P BIANCA, LEVEL IV Diagnosis: Gastro-esophageal reflux disease without esophagitis[ICD10: K21.9] Diagnosis: Localized edema[ICD10: R60.0] Diagnosis: Essential (primary) hypertension[ICD10: I10] Diagnosis: Hypothyroidism, unspecified[ICD10: E03.9] Diagnosis: Impaired fasting glucose[ICD10: R73.01] Edna Almanza MD, [facility] CPT-4: 66152 01/04/2018 [id number]) 73417 EST. P ATBENJI, LEVEL IV Diagnosis: Essential (primary) hypertension[ICD10: I10] Diagnosis: 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[ICD10: Z79.01] Diagnosis: Incisional hernia without obstruction or gangrene[ICD10: K43.2] Diagnosis: Right lower quadrant pain[ICD10: R10.31] Sarai Almanza MD, [facility] CPT-4: 50340 09/23/2017 ([id number]) [id number] EST. P ATIENT, LEVEL IV Diagnosis: Essential (primary) hypertension[ICD10: I10] Diagnosis: Mixed hyperlipidemia[ICD10: E78.2] Diagnosis: Hypothyroidism, unspecified[ICD10: E03.9] Diagnosis: Impaired fasting glucose[ICD10: R73.01] Diagnosis: 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[ICD10: Z79.01] Edna Almanza MD, [facility] CPT-4: 23168 05/27/2017 [id number] EST. PATIENT, LEVEL III Diagnosis: Pain in right hip[ICD10: M25.551] Nata Almanza MD, [facility] CPT-4: 09286 02/24/2017 ([id number]) [id number] EST. P ATIENT, LEVEL IV Diagnosis: Essential (primary) hypertension[ICD10: I10] Diagnosis: Localized edema[ICD10: R60.0] Diagnosis: Pain in right hip[ICD10: M25.551] Sarai Almanza MD, [facility] CPT-4: 19797 11/02/2016 ([id number]) 55309 EST. P [facility], LEVEL IV Diagnosis: Essential (primary) hypertension[ICD10: I10] Diagnosis: Localized edema[ICD10: R60.0] Sarai Almanza MD, [facility] CPT-4: 09395 09/30/2016 [id number] EST. PATIENT, LEVEL IV Diagnosis: Localized edema[ICD10: R60.0] Diagnosis: Pain in joints of left hand[ICD10: M25.542] Diagnosis: Pain in joints of right hand[ICD10: M25.541] Nata Almanza MD, [facility] CPT-4: 34425 09/10/2016 05641 EST. PATIENT, LEVEL IV Diagnosis: Localized edema[ICD10: R60.0] Diagnosis: Pain in joints of left hand[ICD10: M25.542] Diagnosis: Pain in joints of right hand[ICD10: M25.541] Diagnosis: Other fatigue[ICD10: R53.83] Nata Almanza MD, [facility] CPT-4: 44054 08/20/2016 16746 EST. PATIENT, LEVEL IV Diagnosis: Essential (primary) hypertension[ICD10: I10] Diagnosis: Other long-term (current) drug therapy[ICD10: Z79.899] Diagnosis: Tinnitus, bilateral[ICD10: H93.13] Nata Almanza MD, [facility] CPT-4: 86374 06/08/2016 05490 EST. PATIENT, LEVEL IV Diagnosis: Other allergic rhinitis[ICD10: J30.89] Diagnosis: Acute laryngopharyngitis[ICD10: J06.0] Nata Almanza MD, [facility] CPT-4: 11500 04/02/2016 87979 EST. PATIENT, LEVEL IV Diagnosis: Left upper quadrant pain[ICD10: R10.12] Nata Almanza MD, [facility] CPT-4: 86425 01/14/2016 [id number] EST. PATIENT, LEVEL IV Diagnosis: Pain in left shoulder[ICD10: M25.512] Diagnosis: Body mass index (BMI) 40.0-44.9, adult[ICD10: Z68.41] Nata Almanza MD, [facility] CPT-4: 81374 10/02/2015 [id number] EST. PATIENT, LEVEL IV Diagnosis: Pain in left leg[ICD10: M79.605] Diagnosis: Other long-term (current) drug therapy[ICD10: Z79.899] Nata Almanza MD, [facility] CPT-4: 63583 07/15/2015 ([id number]) 98073 EST. 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: Other long-term (current) drug therapy[ICD10: Z79.899] Edna Almanza MD, [facility] CPT-4: 80715 06/10/2015 ([id number]) OFFICE VISI T, NEW - LEVEL 4 Diagnosis: ESSENTIAL HYPERTENSION[ICD9: 401.9] Diagnosis: HYPOTHYROIDISM[ICD9: 244.9] Diagnosis: ENCNTR LONG-RX USE NEC[ICD9: V58.69] Diagnosis: HYPERLIPIDEMIA[ICD9: 272.4] Diagnosis: Vitamin B12 deficiency[ICD9: 266.2] Diagnosis: Status post gastric surgery[ICD9: V45.89] Diagnosis: Snoring[ICD9: 786.09] Sarai Almanza [facility] CPT-4: 05839 01/22/2015 Plan of Care Planned Activity Notes C odes Status Date Visit Plan: Edema - pt has been adv ised to elevate legs to prevent dependent edema, compression has been recommended to help to naturally decrease peripheral edema. Diuretic use has been discussed and pt has been i nstructed in appropriate use of such medication as necessary to further attempt to reduce peripheral edema. DWLJ-mtigdbzi-ykqjurpb prilosec BID and carafate QID -discussed low [...] of control. 01/04/2018 Appointment: Edna Douglas WPtel: [phone] [phone] [place] (30 min) Complex 01/04/2018 Patient Education: Patient Medication Summary Completed 01/04/2018 Care Plan: SCREENINGMAMMOGRAPHYDIGITAL LOINC : 15844-4 Pending 01/04/2018 Visit Plan: Abdominal hernia - not able to be taken to surgery by local providers and pt has been seen at [facility] and that surgeon felt like Kat would [...] home. 09/23/2017 App[facility]ment: [phone] [place] (15 min) Moderate 09/23/2017 [...] medications. 05/27/2017 [phone] (30 min) Complex 05/27/2017 Patient Education: [...] [place]. 02/24/2017 App[facility]ment: Nata Hsu [phone] [place] (30 min) Complex 02/24/2017 Patient [...] [place]. 11/02/2016 Appointment: Sarai Almanza WPtel: [phone] [facility] (15 min) Moderate 11/02/2016 Patient Education: [...] Appointment: Sarai Almanza WPtel: [phone] [facility] (15 min) Moderate 09/30/2016 Patient Education: Patient [...] edema. 09/10/2016 Appointment: Nata Hsu WPtel: [phone] [facility] (30 min) Complex 09/10/2016 Patient Education: Patient [...] edema. 08/20/2016 Appointment: Nata Hsu WPtel: [phone] [facility] (30 min) Complex 08/20/2016 Patient Education: Patient Medication Summary Completed 08/20/2016 Referral: [facility] Referral Initiated 07/02/2016 Visit Plan: Chronic [...] 06/08/2016 Care Plan: Referral Order SNOMED-CT : [id number] Pending 06/08/2016 Visit Plan: URI - Pt [...] spray. 04/02/2016 Appointment: Nata Hsu WPtel: [phone] [facility] (30 min) Complex 04/02/2016 [...] pain 01/14/2016 [facility]ment: [phone] (30 min) Complex 01/14/2016 Patient Education: Patient Medication Summary Completed 01/14/2016 Patient Education: Obesity Completed 01/14/2016 Care Plan: BMI Above normal followup DAVID F-MGMT EDUC & TRAIN 1 PT Pending 10/24/2015 Care Plan: X-RAY EXAM OF SHOULDER LOINC : 65015-7 Pending 10/24/2015 Visit Plan: Left shoulder pain [...] check. 10/02/2015 Appointment: Edna Douglas WPtel: [facility] [phone] (15 min) Moderate 10/02/2015 Patient Education: [...] Completed 06/10/2015 Appointment: Sarai Almanza WPtel: [facility] [place] (15 min) Moderate 04/22/2015 Visit [...] have surgical fixation - planning occurring at [facility]. Snoring - Sleep apnea symptoms with [...] [place]el: [facility] [place] [place] (S[facility] New Patient 01/22/2015 Patient Education: Patient Medication Summary Completed 01/22/2015 Patient Education: Hypertension Completed 01/22/2015 [facility] Referral Initiated Instructions Comment . Chronic Anticoagul [...] pt has been seen at [facility] and that surgeon felt like Kat would be better served by Dr. Betancur at [facility]. I have recommended a referral to dr. [...] to further attempt to reduce peripheral edema. MPYV-aoyzqtks-ufyqmogk prilosec BID and carafate QID -discussed low [...] between 2.[address] almanza will eusebio e the staff [...] have surgical fixation - planning occurring at [facility]. Snoring - Sleep apnea symptoms with [...]
--- OUTSIDE RECORDS SUMMARY | 2020-01-17 00:04 | XMS REPORT | CCD ---
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 President Name Role Phone PP Unavailable CCM Unavailable Summary Purpose Interface Exchange Insurance Providers Payer name Policy type / Coverage type Covered green party ID Effective Begin Date Effective End Date WPS Medicare Part B Medicare Part B [id number] 2017 Unknown [employer] [place] Medicare Part B [id number] 2017 Unknown Family history Father Diagnosis Age At Onset Hyperlipidemia Unknown Heart Attack Unknown Mother Diagnosis Age At Onset Arthritis Unknown Social History Social History Element Codes Description Effective Dates Marital status Unknown M arried Nathan 09/30/2016 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 Number of children Unknown 3 01/22/[address]: 292201054 Never smoker 01/22/[address]: 280403224 Never drinks alcohol 01/22/2015 Allergies, Adverse Reactions, [...] ICD-9: 553.21 ICD-10: K43.2 Active 09/23/2017 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 ICD-9: V58.61 ICD-10: [...] 780.79 ICD-10: R53.83 Active 08/20/2016 Unknown 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 ICD-9: V58.69 [...] 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: K43.2 09/23/2017 Active 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 ICD-9: [...] 780.79 ICD-10: R53.83 08/20/2016 Active 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 ICD-9: V58.69 [...] Stop Date Sta tus Fill Instructions atenolol 50 mg tablet RxNorm: 756760 1 Tablet(s) PO daily 02/03/2018 10/30/2018 Active omeprazole 20 mg cap sean,delayed release RxNorm: 303813 1 Capsule(s) BID 01/21/2018 01/15/2019 Ac tive Generic For:PRILOSEC 20MG 07/22/2017 8:5 8:20 AM Carafate 1 gram tablet RxNorm: 558807 1 Tablet(s) PO AC & HS 01/21/2018 03/03/2018 Active Carafate 1 gram tablet RxNorm: 147932 1 Tablet(s) PO AC & HS 01/18/2018 02/27/2018 Active Carafate 1 gram tablet RxNorm: 877792 1 Tablet(s) PO AC & HS TAKE ONE TABLET B Y MOUTH TWICE DAILY 01/18/2018 02/14/2018 Active Generic For:CARAFATE 1GM 9:10:56 AM Carafate 1 gram tablet RxNorm: 877408 1 Tablet(s) PO AC & HS 01/18/2018 01/20/2018 Inactive omeprazole 20 mg cap sean,delayed release RxNorm: 094072 Capsule(s) TAKE 1 CAP SEAN BY MOUTH EVERY DAY 01/17/2018 01/20/2018 Inactive Generic For:PRILOSEC 20MG 0 07/22/2017 8:58:20 AM omeprazole 20 mg cap sean,delayed release RxNorm: 766907 Capsule(s) TAKE 1 CAP SEAN BY MOUTH EVERY DAY 01/14/2018 01/16/2018 Inactive Generic For:PRILOSEC 20MG 07/22/2017 8:58:20 AM clonazepam 0.5 mg ta blet RxNorm: 020425 1 Tablet(s) PO BID 01/07/2018 06/05/2018 Active Plavix 75 mg tablet RxNorm: 296894 1 Tablet(s) PO daily 01/07/2018 07/05/2018 Active Carafate 1 gram tablet RxNorm: 642411 1 Tablet(s) PO AC & HS 01/04/2018 01/17/2018 Inactive Lasix 20 mg tablet RxNorm: 644537 TAKE ONE TABLET BY MOUTH DAILY 12/20/2017 04/18/2018 Ac tive Generic For:LASIX 20MG 12/20/2017 9:11: 03 AM sodium bicarbonate 6 50 mg tablet RxNorm: 051484 TAKE 2 TABLETS BY JAVON TH TWICE DAILY 12/20/2017 06/17/2018 Ac tive 12/20/2017 9:10:59 AM Carafate 1 gram tablet RxNorm: 687241 TAKE ONE TABLET BY MOUTH TWICE DAILY 12/20/2017 01/17/2018 In active Generic For:CARAFATE 1GM 12/20/2017 9:1 0:56 AM Synthroid 137 mcg ta blet RxNorm: 384362 TAKE 1 TABLET BY MOUT H ONCE DAILY 11/19/2017 05/17/2018 Ac tive Generic For:SYNTHROID 137MCG TAB 2017 8:58:04 AM Detrol LA 4 mg capsu le,extended release RxNorm: 125737 TAKE 1 CAPSULE BY JAVON TH ONCE DAILY 10/20/2017 04/17/2018 Active Generic For:DETROL LA 4MG CA P 10/20/2017 9:01:56 AM allopurinol 300 mg t ablet RxNorm: 848515 TAKE 1 TABLET BY MOUT H ONCE DAILY. 10/20/2017 04/17/2018 Ac tive Generic For:ZYLOPRIM 300 MG TABLET 07/2017 9:01:59 AM Coumadin 5 mg tablet RxNorm: 974383 1 Tablet(s) PO UD 10/01/2017 No Stop Date Active cyclobenzaprine 5 mg tablet RxNorm: 715623 1 Tablet(s) PO TID as needed myscle spasm 09/23/2017 10/12/2017 Inactive Lipitor 40 mg tablet RxNorm: 456436 TAKE 1 TABLET BY MOUTH ONCE DAILY 09/20/2017 09/14/2018 Ac tive Generic For:LIPITOR 40MG 09/20/2017 8:5 6:04 AM atenolol 100 mg tablet RxNorm: 452304 1 Tablet(s) PO daily 08/30/2017 03/27/2018 Active atenolol 50 mg tablet RxNorm: 077154 1 Tablet(s) PO daily 08/30/2017 08/30/2017 Inactive Lovenox 30 mg/0.3 mL subcutaneous syringe RxNorm: 072804 0.3 Milliliter(s) SQ Q12H 08/24/2017 09/06/2017 In active Lasix 20 mg tablet RxNorm: 180171 TAKE ONE TABLET BY MOUTH DAILY 08/23/2017 12/19/2017 In active Generic For:LASIX 20MG 08/21/2017 9:04: 27 AM Synthroid 137 mcg ta blet RxNorm: 601938 TAKE 1 TABLET BY MOUT H ONCE DAILY 08/23/2017 11/18/2017 In active Generic For:SYNTHROID 137MCG TAB 2017 9:04:30 AM Lovenox 30 mg/0.3 mL subcutaneous syringe RxNorm: 933796 0.3 Milliliter(s) SQ Q12H 08/10/2017 08/23/2017 In active clonazepam 0.5 mg ta blet RxNorm: 155702 1 Tablet(s) PO BID 08/04/2017 12/30/2017 Inactive Coumadin 4 mg tablet RxNorm: 651587 TAKE 1 TABLET BY MOUTH THREE TIMES PER W LUMMI (WEDNESDAY, WEDNESDAY AND WEDNESDAY) 07/22/2017 02/16/2018 Active Generic For:COUMADIN 4MG 07/22/2017 8:58:26 AM Coumadin 4 mg tablet RxNorm: 179292 TAKE 1 TABLET BY MOUTH THREE TIMES PER W LUMMI (WEDNESDAY, WEDNESDAY AND WEDNESDAY) 07/22/2017 02/16/2018 Active Generic For:COUMADIN 4MG 07/22/2017 8:58:26 AM omeprazole 20 mg cap sean,delayed release RxNorm: 089434 TAKE 1 CAPSULE BY JAVON TH EVERY DAY 07/22/2017 01/13/2018 Inactive Generic For:PRILOSEC 20MG 07/22/2017 8: 58:20 AM venlafaxine ER 75 mg capsule,extended release 24 hr RxNorm: 314234 TAKE 1 CAPSULE BY MOUTH ONCE DAILY 06/22/2017 06/16/2018 Active Generic For:*EFFEXOR XR 75MG 06/19/2017 12:23:45 PM sodium bicarbonate 6 50 mg tablet RxNorm: 593817 TAKE 2 TABLETS BY JAVON TH TWICE DAILY 06/22/2017 12/18/2017 In active 06/19/2017 12:23:30 PM Coumadin 5 mg tablet RxNorm: 339827 1 Tablet(s) PO UD 06/01/2017 09/30/2017 Inactive Keflex 500 mg capsule RxNorm: 743880 1 Capsule(s) PO TID 05/27/2017 06/02/2017 Inactive spironolactone 25 mg tablet RxNorm: 331671 1 Tablet(s) PO daily 05/24/2017 05/18/2018 Active Synthroid 137 mcg ta blet RxNorm: 843076 TAKE 1 TABLET BY MOUT H ONCE DAILY 05/24/2017 08/21/2017 In active Generic For:SYNTHROID 137MCG TAB 2016 8:55:59 AM Carafate 1 gram tablet RxNorm: 388503 TAKE ONE TABLET BY MOUTH TWICE DAILY 05/24/2017 12/19/2017 In active Generic For:CARAFATE 1GM 05/24/2017 8:5 5:54 AM Detrol LA 4 mg capsu le,extended release RxNorm: 207762 1 Capsule(s) PO daily TAKE 1 CAPSULE BY MOUTH ONCE DAILY 05/10/2017 10/19/2017 Inactive Generic For:DETROL LA 4MG CAP 02/19/2017 2:36:00 PM Lasix 20 mg tablet RxNorm: 155136 TAKE ONE TABLET BY MOUTH DAILY 04/23/2017 08/20/2017 In active Generic For:LASIX 20MG 04/23/2017 9:04: 01 AM Coumadin 4 mg tablet RxNorm: 061761 TAKE 1 TABLET BY MOUTH THREE TIMES PER W LUMMI (WEDNESDAY, WEDNESDAY AND WEDNESDAY) 04/23/2017 07/21/2017 Inactive Generic For:COUMADIN 4MG 04/23/2017 9:04:05 AM allopurinol 300 mg t ablet RxNorm: 028891 TAKE 1 TABLET BY MOUT H ONCE DAILY. 04/23/2017 10/19/2017 In active Generic For:ZYLOPRIM 300 MG TABLET 08/2016 9:03:57 AM potassium chloride 2 0 mEq/15 mL oral liquid RxNorm: 134031 Milliliter(s) 30 Milliliter(s) (40mEq) PO daily 03/24/2017 07/21/2017 Inactive Lovenox 30 mg/0.3 mL subcutaneous syringe RxNorm: 479345 0.3 Milliliter(s) SQ Q12H 03/22/2017 03/26/2017 In active Lovenox 30 mg/0.3 mL subcutaneous syringe RxNorm: 458413 0.3 Milliliter(s) SQ Q12H 03/19/2017 03/20/2017 In active Lovenox 30 mg/0.3 mL subcutaneous syringe RxNorm: 945380 0.3 Milliliter(s) SQ Q12H 03/16/2017 03/18/2017 In active clonazepam 0.5 mg ta blet RxNorm: 044585 1 Tablet(s) PO BID 03/02/2017 07/28/2017 Inactive Lovenox 30 mg/0.3 mL subcutaneous syringe RxNorm: 310447 1 injection SQ BID do NOT take the night time dose the day before surgery, or the morning dose the day of surgery 03/01/2017 03/07/2017 Inactive Lovenox 30 mg/0.3 mL subcutaneous syringe RxNorm: 739285 1 injection SQ BID 03/01/2017 02/28/2017 In active Detrol LA 4 mg capsu le,extended release RxNorm: 730982 TAKE 1 CAPSULE BY JAVON TH ONCE DAILY 02/19/2017 05/09/2017 Inactive Generic For:DETROL LA 4MG C AP 02/19/2017 2:36:00 PM hydrocodone 5 mg-humberto taminophen 325 mg tablet RxNorm: 977032 1-2 Tablet(s) PO Q6 P RN 02/04/2017 No Stop Date Active Zetia 10 mg tablet RxNorm: 642749 TAKE 1 TABLET BY MOUTH DAILY 01/25/2017 05/24/2017 Inactive 01/23/2017 9:03:48 AM omeprazole 20 mg cap sean,delayed release RxNorm: 517850 TAKE 1 CAPSULE BY JAVON TH EVERY DAY 01/25/2017 07/21/2017 Inactive Generic For:PRILOSEC 20MG 01/23/2017 9: 03:45 AM Coumadin 4 mg tablet RxNorm: 809093 TAKE 1 TABLET BY MOUTH THREE TIMES PER W LUMMI (WEDNESDAY, WEDNESDAY AND WEDNESDAY) 01/25/2017 04/22/2017 Inactive Generic For:COUMADIN 4MG 01/23/2017 9:03:51 AM sodium bicarbonate 6 50 mg tablet RxNorm: 043332 TAKE 2 TABLETS BY JAVON TH TWICE DAILY 12/24/2016 06/21/2017 In active 12/24/2016 9:09:27 AM Lasix 20 mg tablet RxNorm: 798622 1 Tablet(s) PO daily 12/24/2016 04/22/2017 Inactive Synthroid 137 mcg ta blet RxNorm: 349165 TAKE 1 TABLET BY MOUT H ONCE DAILY 11/24/2016 05/22/2017 In active Generic For:SYNTHROID 137MCG TAB 2016 9:04:37 AM Coumadin 4 mg tablet RxNorm: 341615 TAKE 1 TABLET BY MOUTH THREE TIMES PER W LUMMI (WEDNESDAY, WEDNESDAY AND WEDNESDAY) 11/24/2016 01/22/2017 Inactive Generic For:COUMADIN 4MG 11/24/2016 9:04:41 AM hydrocodone 5 mg-humberto taminophen 325 mg tablet RxNorm: 812435 1-2 Tablet(s) PO Q6 P RN 11/17/2016 02/03/2017 In active Carafate 1 gram tablet RxNorm: 755168 TAKE ONE TABLET BY MOUTH TWICE DAILY 10/27/2016 05/23/2017 In active Generic For:CARAFATE 1GM 10/26/2016 8:3 9:42 AM allopurinol 300 mg t ablet RxNorm: 716004 Tablet(s) TAKE 1 TABL ET BY MOUTH ONCE DAILY. 10/26/2016 04/22/2017 Inactive Lipitor 40 mg tablet RxNorm: 939253 1 Tablet(s) PO daily 09/25/2016 09/19/2017 Inactive Coumadin 4 mg tablet RxNorm: 679083 TAKE 1 TABLET BY MOUTH THREE TIMES PER W LUMMI (WEDNESDAY, WEDNESDAY AND WEDNESDAY) 09/25/2016 11/23/2016 Inactive Generic For:COUMADIN 4MG 09/25/2016 8:55:58 AM Zetia 10 mg tablet RxNorm: 650921 1 Tablet(s) PO daily 09/25/2016 01/22/2017 Inactive gave 1 month of samples clonazepam 0.5 mg ta blet RxNorm: 461541 1 Tablet(s) PO BID 09/21/2016 02/16/2017 Inactive Lasix 20 mg tablet RxNorm: 515487 1 Tablet(s) PO daily 09/15/2016 12/23/2016 Inactive potassium chloride 2 0 mEq/15 mL oral liquid RxNorm: 163095 Milliliter(s) 30 Milliliter(s) (40mEq) PO daily 09/15/2016 01/12/2017 Inactive Lasix 20 mg tablet RxNorm: 163189 2 Tablet(s) PO daily 09/10/2016 09/12/2016 Inactive Lasix 20 mg tablet RxNorm: 828185 1 Tablet(s) PO daily 08/28/2016 08/30/2016 Inactive Lasix 20 mg tablet RxNorm: 185231 1 Tablet(s) PO daily 08/20/2016 08/22/2016 Inactive Detrol LA 4 mg capsu le,extended release RxNorm: 577718 TAKE 1 CAPSULE BY JAVON ONCE DAILY 07/27/2016 02/18/2017 Inactive Generic For:DETROL LA 4MG C AP 07/27/2016 9:08:27 AM Coumadin 4 mg tablet RxNorm: 465553 1 Tablet(s) PO 3 x week wed and sun 07/27/2016 09/24/2016 In active omeprazole 20 mg cap sean,delayed release RxNorm: 396750 Capsule(s) PO TAKE 1 CAPSULE BY MOUTH ONCE DAILY 07/27/2016 01/22/2017 Inactive venlafaxine ER 75 mg capsule,extended release 24 hr RxNorm: 214152 1 Capsule(s) PO daily 06/29/2016 06/21/2017 Inactive sodium bicarbonate 6 50 mg tablet RxNorm: 464891 TAKE 2 TABLETS BY JAVON TWICE DAILY 06/29/2016 12/23/2016 In active 06/27/2016 9:05:39 AM Coumadin 4 mg tablet RxNorm: 684089 1 Tablet(s) PO 3 x week wed and sun 06/09/2016 06/08/2016 In active Coumadin 4 mg tablet RxNorm: 626004 1 Tablet(s) PO 3 x week wed and sun 06/09/2016 07/26/2016 In active Zetia 10 mg tablet RxNorm: 665423 1 Tablet(s) PO daily 06/09/2016 06/08/2016 Inactive gave 1 month of samples Zetia 10 mg tablet RxNorm: 954394 1 Tablet(s) PO daily 06/09/2016 09/24/2016 Inactive gave 1 month of samples Effexor 75 mg tablet RxNorm: 596601 1 Tablet(s) PO daily 06/08/2016 06/28/2016 Inactive spironolactone 25 mg tablet RxNorm: 496118 1 Tablet(s) PO daily 06/08/2016 05/23/2017 Inactive Synthroid 137 mcg ta blet RxNorm: 897369 1 Tablet(s) PO daily 05/07/2016 11/02/2016 Inactive allopurinol 300 mg t ablet RxNorm: 085848 Tablet(s) TAKE 1 TABL ET BY MOUTH ONCE DAILY. 04/28/2016 10/24/2016 Inactive clonazepam 0.5 mg ta blet RxNorm: 320661 1 Tablet(s) PO BID 04/20/2016 09/15/2016 Inactive Flonase Allergy Reli ef 50 mcg/actuation nasal spray,suspension RxNorm: 5003257 1 [place] NASAL BID 04/02/2016 No Stop Date Active Zithromax Z-Thomas 250 mg tablet RxNorm: 377255 Tablet(s) PO 04/02/2016 08/27/2016 Inactive cetirizine 10 mg tablet RxNorm: 3945216 1 Tablet(s) PO daily 04/02/2016 05/01/2016 Inactive Carafate 1 gram tablet RxNorm: 614165 Tablet(s) TAKE 1 TABLET TWICE A DAY FOR 30 DAYS 03/30/2016 10/25/2016 Inactive Generic For:CARAFATE 1GM 02/08/2015 12:3 6:39 PM Plavix 75 mg tablet RxNorm: 013015 1 Tablet(s) PO daily 03/11/2016 09/06/2016 Inactive sodium bicarbonate 6 50 mg tablet RxNorm: 865516 Tablet(s) 2 Tablet(s) PO BID 02/28/2016 06/26/2016 In active omeprazole 20 mg cap sean,delayed release RxNorm: 868903 Capsule(s) PO TAKE 1 CAPSULE BY MOUTH ONCE DAILY 01/31/2016 07/26/2016 Inactive Fish Oil 1,000 mg ca psule RxNorm: 1 Capsule(s) PO BID 01/14/2016 No Stop Date Active Synthroid 137 mcg ta blet RxNorm: 023576 1 Tablet(s) PO daily 01/14/2016 05/06/2016 Inactive Detrol LA 4 mg capsu le,extended release RxNorm: 975943 TAKE 1 CAPSULE BY JAVON TH ONCE DAILY 12/30/2015 07/26/2016 Inactive Generic For:DETROL LA 4MG C AP 12/30/2015 9:11:01 AM potassium chloride 2 0 mEq/15 mL oral liquid RxNorm: 093628 Milliliter(s) 30 Milliliter(s) (40mEq) PO daily 12/02/2015 03/30/2016 Inactive sodium bicarbonate 6 50 mg tablet RxNorm: 093410 Tablet(s) 2 Tablet(s) PO BID 10/31/2015 02/27/2016 In active Lipitor 40 mg tablet RxNorm: 853496 1 Tablet(s) PO daily 10/09/2015 09/24/2016 Inactive sodium bicarbonate 6 50 mg tablet RxNorm: 633516 2 Tablet(s) PO BID 10/01/2015 10/30/2015 Inactive allopurinol 300 mg t ablet RxNorm: 156858 TAKE 1 TABLET BY MOUT H ONCE DAILY. 10/01/2015 04/27/2016 In active Generic For:ZYLOPRIM 300 MG TABLET 09/19 9:21:15 AM clonazepam 0.5 mg ta blet RxNorm: 391371 1 Tablet(s) PO BID 09/30/2015 04/19/2016 Inactive Coumadin 5 mg tablet RxNorm: 959943 1 Tablet(s) PO daily 09/27/2015 05/31/2017 Inactive Generic For:COUMADIN 5MG TAB N O T I C E PRESCRIPTION PREVIOUSLY AUTHORIZED BY DOCTOR:BOBBY ZULETA Synthroid 125 mcg ta blet RxNorm: 838215 1 Tablet(s) PO daily 09/27/2015 09/26/2015 Inactive Synthroid 125 mcg ta blet RxNorm: 995554 1 Tablet(s) PO daily 09/27/2015 01/13/2016 Inactive Carafate 1 gram tablet RxNorm: 108720 Tablet(s) TAKE 1 TABLET TWICE A DAY FOR 30 DAYS 09/02/2015 03/29/2016 Inactive Generic For:CARAFATE 1GM 02/08/2015 12:3 6:39 PM sodium bicarbonate 6 50 mg tablet RxNorm: 879147 2 Tablet(s) PO BID 09/02/2015 09/30/2015 Inactive Prilosec 20 mg capsu le,delayed release RxNorm: 957643 TAKE 1 CAPSULE BY JAVON TH ONCE DAILY 08/02/2015 01/28/2016 Inactive Generic For:PRILOSEC 20MG 08/02/2015 10:03:09 AM N O T I C E PRESCRIPTION PREVIOUSLY AUTHORIZED BY DOCTOR:BOBBY ZULETA Zyrtec 10 mg capsule RxNorm: 0893892 1 Capsule(s) PO daily 07/15/2015 08/13/2015 Inactive Keflex 500 mg capsule RxNorm: 532081 1 Capsule(s) PO TID 07/15/2015 07/21/2015 Inactive cetirizine 10 mg cap sean RxNorm: 5856325 1 Capsule(s) PO daily 07/15/2015 08/13/2015 Inactive hydrocodone 5 mg-humberto taminophen 325 mg tablet RxNorm: 487968 1-2 Tablet(s) PO Q6 P RN 06/10/2015 11/16/2016 In active sodium bicarbonate 6 50 mg tablet RxNorm: 069033 2 Tablet(s) PO BID 06/03/2015 08/31/2015 Inactive Detrol LA 4 mg capsu le,extended release RxNorm: 327992 TAKE 1 CAPSULE BY JAVON ONCE DAILY 06/03/2015 12/29/2015 Inactive Generic For:DETROL LA 4MG C AP N O T I C E PRESCRIPTION PREVIOUSLY AUTHORIZED BY DOCTOR:BOBBY ZULETA atenolol 50 mg tablet RxNorm: 644376 1 Tablet(s) PO daily TAKE 1 TABLET BY [facility] DAILY 05/07/2015 08/23/2017 Inactive Generic For:TENORMIN 50MG 05/04/2015 9:07:22 AM spironolactone 25 mg tablet RxNorm: 669435 1 Tablet(s) PO daily 05/06/2015 06/07/2016 Inactive venlafaxine ER 75 mg capsule,extended release 24 hr RxNorm: 447744 1 Capsule(s) PO daily 05/04/2015 06/28/2016 Inactive atenolol 50 mg tablet RxNorm: 857595 TAKE 1 TABLET BY MOUTH DAILY 05/04/2015 05/06/2015 Inactive Generic For:TENORMIN 50MG 05/04/2015 9: 07:22 AM Synthroid 150 mcg ta blet RxNorm: 573256 TAKE 1 TABLET BY MOUT H ONCE DAILY. 04/05/2015 09/26/2015 In active Generic For:SYNTHROID 150MCG TAB 2014 4:45:40 PM N O T I C E PRESCRIPTION PREVIOUSLY AUTHORIZED BY DOCTOR:BOBBY ZULETA Effexor 75 mg tablet RxNorm: 606535 1 Tablet(s) PO daily 04/05/2015 07/03/2015 Inactive Coumadin 5 mg tablet RxNorm: 897177 TAKE 1 AND 1/2 TABLETS BY MOUTH ONCE MYRANDA LY 04/04/2015 09/26/2015 In active Generic For:COUMADIN 5MG TAB N O T I C E PRESCRIPTION PREVIOUSLY AUTHORIZED BY DOCTOR:BOBBY ZULETA clonazepam 0.5 mg ta blet RxNorm: 902747 1 Tablet(s) PO BID 03/13/2015 11/05/2015 Inactive sodium bicarbonate 6 50 mg tablet RxNorm: 524913 2 Tablet(s) PO BID 03/08/2015 06/02/2015 Inactive allopurinol 300 mg t ablet RxNorm: 560108 TAKE 1 TABLET BY MOUT H ONCE DAILY. 03/05/2015 09/30/2015 In active N O T I C E PRESCRIPTION PREVIOUSLY A UTHORIZED BY DOCTOR:BOBBY ZULETA Plavix 75 mg tablet RxNorm: 891492 1 Tablet(s) PO daily 02/12/2015 09/09/2015 Inactive clonazepam 0.5 mg ta blet RxNorm: 198515 1 Tablet(s) PO BID 02/11/2015 03/11/2015 Inactive Carafate 1 gram tablet RxNorm: 097591 TAKE 1 TABLET TWICE A DAY FOR 30 DAYS 02/08/2015 02/07/2015 In active Generic For:CARAFATE 1GM 02/08/2015 12:3 6:39 PM Carafate 1 gram tablet RxNorm: 555368 Tablet(s) TAKE 1 TABLET TWICE A DAY FOR 30 DAYS 02/08/2015 09/01/2015 Inactive Generic For:CARAFATE 1GM 02/08/2015 12:3 6:39 PM potassium chloride 2 0 mEq/15 mL oral liquid RxNorm: 513924 30 Milliliter(s) (40m Eq) PO daily 02/05/2015 12/01/2015 Inactive atenolol 50 mg tablet RxNorm: 595631 1 Tablet(s) PO daily 02/04/2015 05/03/2015 Inactive [SAVINGS FOR NON-COVERED DRUGS -- BIN:00 3585, PCN: ASPROD1, Group: XXXXX, ID# XXXXXXX, Questions: . THIS IS NOT INSURANCE.] potassium chloride 2 0 mEq/15 mL oral liquid RxNorm: 311420 30 Milliliter(s) (40m Eq) PO daily 01/08/2015 02/04/2015 Inactive potassium chloride 2 0 mEq/15 mL oral liquid RxNorm: 008030 30 Milliliter(s) (40m Eq) PO daily 12/07/2014 01/07/2015 Inactive atenolol 50 mg tablet RxNorm: 465939 1 Tablet(s) PO daily 11/09/2014 11/08/2014 Inactive atenolol 50 mg tablet RxNorm: 704558 1 Tablet(s) PO daily 11/09/2014 02/03/2015 Inactive [SAVINGS FOR NON-COVERED DRUGS -- BIN:00 3585, PCN: ASPROD1, Group: XXXXX, ID# XXXXXXX, Questions: . THIS IS NOT INSURANCE.] cranberry 1,000 mg c apsule RxNorm: 559313 1 Capsule(s) PO daily No Start Date Active Voltaren 1 % topical gel RxNorm: 118266 TOP No St art Date Active verapamil ER (HS) 24 0 mg tablet,extended release 24 hr RxNorm: 257266 1 Tablet(s) PO daily No Start Date Active aspirin 81 mg tablet RxNorm: 472125 1 Tablet(s) PO daily No Start Date Active Zofran 4 mg tablet RxNorm: 817357 1 Tablet(s) PO PRN No Start Date Active B12 1000 mcg RxNorm: 1 Tablet(s) PO daily No Start Date Active magnesium oxide 400 mg capsule RxNorm: 064458 2 Capsule(s) PO BID No Start Date Active Synthroid 150 mcg ta blet RxNorm: 008062 1 Tablet(s) PO daily No Start Date 04/04/2015 Inactive Coumadin 5 mg tablet RxNorm: 153490 1 Tablet(s) PO daily No Start Date 04/03/2015 Inactive allopurinol 300 mg t ablet RxNorm: 824657 1 Tablet(s) PO daily No Start Date 03/04/2015 Inactive Prilosec 20 mg capsu le,delayed release RxNorm: 596819 1 Capsule(s) PO PRN No Start Date 08/01/2015 Inactive potassium chloride 2 0 mEq/15 mL oral liquid RxNorm: 631798 30 Milliliter(s) (40m Eq) PO daily No Start Date 12/06/2014 Inactive atenolol 50 mg tablet RxNorm: 376191 1 Tablet(s) PO daily No Start Date 08/29/2017 Inactive Lipitor 40 mg tablet RxNorm: 801515 1 Tablet(s) PO daily No Start Date 09/19/2017 Inactive Effexor 75 mg tablet RxNorm: 101497 1 Tablet(s) PO daily No Start Date 04/04/2015 Inactive Carafate 1 gram tablet RxNorm: 214998 1 Tablet(s) PO BID No Start Date 02/07/2015 Inactive clonazepam 0.5 mg ta blet RxNorm: 722887 1 Tablet(s) PO BID No Start Date 02/10/2015 Inactive Plavix 75 mg tablet RxNorm: 600055 1 Tablet(s) PO daily No Start Date 02/11/2015 Inactive sodium bicarbonate 6 50 mg tablet RxNorm: 460334 2 Tablet(s) PO BID No Start Date 09/01/2015 Inactive Lovenox 30 mg/0.3 mL subcutaneous syringe RxNorm: 073745 0.3 Milliliter(s) SQ Q12H No Start Date 03/15/2017 Inactive Fish Oil 1,000 mg ca psule RxNorm: 1 Capsule(s) PO daily No Start Date 01/13/2016 Inactive Detrol LA 4 mg capsu le,extended release RxNorm: 381407 1 Capsule(s) PO daily No Start Date [...] glucose ICD-10: R73 .01 ICD-9: 790.21 01/04/2018 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 ICD-10: Z79.01 ICD-9: [...] V45.89 01/22/2015 ESSENTIAL HYPERTENSION ICD-9: 401.9 01/22/2015 HYPOTHYROIDISM ICD-9: 244.9 01/22/2015 Vitamin B12 deficiency ICD-9: 266.2 01/22/2015 HYPERLIPIDEMIA ICD-9: 272.4 01/22/2015 ENCNTR LONG-RX USE NEC ICD-9: V58.69 01/22/2015 Reason For Visit Reason For Visit [...] Item Item Code Result Date Comp Metabolic Dlz212 NA 141 mEq/L 01/05/2018 Comp Metabolic Wgv918 K 3.7 mEq/L 01/05/2018 Comp Metabolic Cxv632 CL 102 mEq/L 01/05/2018 Comp Metabolic Wfg063 CO2 29.0 mEq/L 01/05/2018 Comp Metabolic Vkt952 AN ION GAP 14 01/05/2018 Comp Metabolic Nih319 GL UCOSE 136 mg/dL 01/05/2018 Comp Metabolic Ghu270 Cr eat 1.0 mg/dL 01/05/2018 Comp Metabolic Qbu911 eG FR 61 ml/min/1.73m2 01/05 Comp Metabolic Eyy332 BUN 22 mg/dL 01/05/2018 Comp Metabolic Aym863 B/ C Ratio 22.9 Ratio 01/05/2018 Comp Metabolic Yrz354 CA LCIUM 9.7 mg/dL 01/05/2018 Comp Metabolic Nge938 AL K PHOS 57 U/L 01/05/2018 Comp Metabolic Kmg102 T(SGOT) 21 U/L 01/05/2018 Comp Metabolic Zru888 AL T(SGPT) 19 U/L 01/05/2018 Comp Metabolic Jof261 BI LI T 0.9 mg/dL 01/05/2018 Comp Metabolic Qoj253 AL BUMIN 4.1 g/dL 01/05/2018 Comp Metabolic Kbo153 TP RO 7.1 g/dL 01/05/2018 Comp Metabolic Guw097 GL OB 3.0 g/dL 01/05/2018 Comp Metabolic Yso167 A/ G Ratio 1.4 Ratio 01/05/2018 Comp Metabolic Pll101 Os mo 287 mOsmo 01/05/2018 Free T4 Yme617 FREE T4 1.05 ng/dL 01/05/2018 Tsh Ord6 TSH (3rd IS) 2.34 uIU/mL 01/05/2018 Lipid Ord30 CHOL 156 mg/dL 01/05/2018 Lipid Ord30 HDL 48.0 mg/dl 01/05/2018 Lipid Ord30 TRIG 207 mg/dL 01/05/2018 Lipid Ord30 LDL 67 mg/dL 01/05/2018 Lipid Ord30 C/HDL 3.3 Ratio 01/05/2018 Pt Nif4294 PT 20.7 seconds 01/05/2018 Pt Uly4135 INR 1.8 01/05/2018 Pt Pfr2026 Low Intensity - 1.5-2.0 01/05/2018 Pt Bla7210 Mod intensity - 2.0-3.0 01/05/2018 Pt Vrb3792 Hi intensity - 3.0-4.0 01/05/2018 %Hba1C Otq656 % HbA1c 94368-5 6.0 % 01/05/2018 %Hba1C Isj028 Gluc Ave 126 mg/dL 01/05/2018 Cbc With [...] 27.3 % 01/05/2018 Cbc With Differential Ord2 [place]% 10.5 % 01/05/2018 Cbc With Differential Ord2 MCH 30.6 pg 01/05/2018 Cbc With Differential Ord2 Eos% 3.6 % 01/05/2018 Cbc With Differential Ord2 MCHC 33.6 pg 01/05/2018 Cbc With Differential Ord2 Baso% 1.9 % 01/05/2018 Cbc With Differential Ord2 PLT 177 K/ul 01/05/2018 Cbc With Differential Ord2 Neut ABS# 2.64 K/ul 01/05/2018 Cbc With Differential Ord2 RDW 14.5 % 01/05/2018 Cbc With Differential Ord2 Lymph ABS# 1.27 K/ul 01/05/2018 Cbc With Differential Ord2 [place] ABS# 0.5 K/ul 01/05/2018 Cbc With Differential Ord2 Eos ABS# 0.2 K/ul 01/05/2018 Cbc With Differential Ord2 Baso ABS# 0.1 K/ul 01/05/2018 Pt Lst9293 PT 28.3 seconds 11/26/2017 Pt Sfn9820 INR 2.6 11/26/2017 Pt Fhe0679 Low Intensity - 1.5-2.0 11/26/2017 Pt Pet5840 Mod intensity - 2.0-3.0 11/26/2017 Pt Zgf5939 Hi intensity - 3.0-4.0 11/26/2017 Pt Nzg0470 PT 36.5 seconds 11/19/2017 Pt Fac4864 INR 3.6 11/19/2017 Pt Dfm1336 Low Intensity - 1.5-2.0 11/19/2017 Pt Jaa1778 Mod intensity - 2.0-3.0 11/19/2017 Pt Czh4098 Hi intensity - 3.0-4.0 11/19/2017 Pt Lfz1530 PT 22.9 seconds 10/15/2017 Pt Iav8526 INR 2.0 10/15/2017 Pt Nax0038 Low Intensity - 1.5-2.0 10/15/2017 Pt Ptb9003 Mod intensity - 2.0-3.0 10/15/2017 Pt Vdi7643 Hi intensity - 3.0-4.0 10/15/2017 Pt Gcf2542 PT 25.9 seconds 10/01/2017 Pt Eki1435 INR 2.4 10/01/2017 Pt Zvt8482 Low Intensity - 1.5-2.0 10/01/2017 Pt Phw6547 Mod intensity - 2.0-3.0 10/01/2017 Pt Yaj7955 Hi intensity - 3.0-4.0 10/01/2017 Pt Bme0251 PT 20.6 seconds 09/24/2017 Pt Zmn1724 INR 1.8 09/24/2017 Pt Pzi7597 Low Intensity - 1.5-2.0 09/24/2017 Pt Jzy7556 Mod intensity - 2.0-3.0 09/24/2017 Pt Ffu6038 Hi intensity - 3.0-4.0 09/24/2017 Pt Etw1469 PT 21.0 seconds 09/15/2017 Pt Nap5571 INR 1.8 09/15/2017 Pt Adk9053 Low Intensity - 1.5-2.0 09/15/2017 Pt Wgq0310 Mod intensity - 2.0-3.0 09/15/2017 Pt Nwt4177 Hi intensity - 3.0-4.0 09/15/2017 Pt Xsc1291 PT 19.0 seconds 09/03/2017 Pt Rhc9139 INR 1.6 09/03/2017 Pt Osp5480 Low Intensity - 1.5-2.0 09/03/2017 Pt Tql7457 Mod intensity - 2.0-3.0 09/03/2017 Pt Gxy0548 Hi intensity - 3.0-4.0 09/03/2017 Pt Whk0229 PT 17.6 seconds 08/23/2017 Pt Baw0285 INR 1.5 08/23/2017 Pt Cpd3151 Low Intensity - 1.5-2.0 08/23/2017 Pt Hyw7329 Mod intensity - 2.0-3.0 08/23/2017 Pt Mkm2055 Hi intensity - 3.0-4.0 08/23/2017 Pt Man4175 PT 12.7 seconds 08/20/2017 Pt Qhq4369 INR 1.0 08/20/2017 Pt Oea1275 Low Intensity - 1.5-2.0 08/20/2017 Pt Mbx3874 Mod intensity - 2.0-3.0 08/20/2017 Pt Ewz2143 Hi intensity - 3.0-4.0 08/20/2017 Pt Joj6691 PT 12.9 seconds 08/17/2017 Pt Afw3976 INR 1.0 08/17/2017 Pt Kqw8321 Low Intensity - 1.5-2.0 08/17/2017 Pt Sgk6253 Mod intensity - 2.0-3.0 08/17/2017 Pt Qbd3845 Hi intensity - 3.0-4.0 08/17/2017 Pt Vog2866 PT 18.5 seconds 08/10/2017 Pt Ckz8603 INR 1.6 08/10/2017 Pt Qfr6031 Low Intensity - 1.5-2.0 08/10/2017 Pt Nar4244 Mod intensity - 2.0-3.0 08/10/2017 Pt Lll7876 Hi intensity - 3.0-4.0 08/10/2017 Tsh Ord6 [...] 14.7 % 05/27/2017 Cbc With Differential Ord2 [place]% 8.1 % 05/27/2017 Cbc With Differential Ord2 [...] 1.11 K/ul 05/27/2017 Cbc With Differential Ord2 [place] ABS# 0.6 K/ul 05/27/2017 Cbc With Differential Ord2 Eos ABS# 0.2 K/ul 05/27/2017 Cbc With Differential Ord2 Baso ABS# 0.1 K/ul 05/27/2017 Pt Olj4480 PT 28.2 seconds 05/27/2017 Pt Aia9780 INR 2.6 05/27/2017 Pt Zuv0352 Low Intensity - 1.5-2.0 05/27/2017 Pt Drx8332 Mod intensity - 2.0-3.0 05/27/2017 Pt Lrv4169 Hi intensity - 3.0-4.0 05/27/2017 Comp Metabolic Xfp368 NA 138 mEq/L 05/27/2017 Comp Metabolic Sys787 K 4.1 mEq/L 05/27/2017 Comp Metabolic Mnq799 CL 101 mEq/L 05/27/2017 Comp Metabolic Tou250 CO2 31.0 mEq/L 05/27/2017 Comp Metabolic Dwd611 AN ION GAP 10 05/27/2017 Comp Metabolic Ohb427 GL UCOSE 117 mg/dL 05/27/2017 Comp Metabolic Zqk562 Cr eat 0.9 mg/dL 05/27/2017 Comp Metabolic Xnv028 eG FR 62 ml/min/1.73m2 05/27 Comp Metabolic Hgl791 BUN 25 mg/dL 05/27/2017 Comp Metabolic Fdv007 B/ C Ratio 26.6 Ratio 05/27/2017 Comp Metabolic Yuc528 CA LCIUM 9.5 mg/dL 05/27/2017 Comp Metabolic Ilj989 AL K PHOS 73 U/L 05/27/2017 Comp Metabolic Nep712 T(SGOT) 18 U/L 05/27/2017 Comp Metabolic Xhz608 AL T(SGPT) 12 U/L 05/27/2017 Comp Metabolic Vbo086 BI LI T 0.5 mg/dL 05/27/2017 Comp Metabolic Dqu970 AL BUMIN 4.1 g/dL 05/27/2017 Comp Metabolic Kfh665 TP RO 7.1 g/dL 05/27/2017 Comp Metabolic Ljr149 GL OB 3.0 g/dL 05/27/2017 Comp Metabolic Smg429 A/ G Ratio 1.3 Ratio 05/27/2017 Comp Metabolic Ccb995 Os mo 281 mOsmo 05/27/2017 Lipid Ord30 CHOL 167 mg/dL 05/27/2017 Lipid Ord30 HDL 49.0 mg/dl 05/27/2017 Lipid Ord30 TRIG 347 mg/dL 05/27/2017 Lipid Ord30 LDL 49 mg/dL 05/27/2017 Lipid Ord30 C/HDL 3.4 Ratio 05/27/2017 Free T4 Kab811 FREE T4 0.91 ng/dL 05/27/2017 %Hba1C Uau296 % HbA1c 76314-1 5.9 % 05/27/2017 %Hba1C Mcm413 Gluc Ave 123 mg/dL 05/27/2017 Magnesium Ord90 Mag 1.4 mg/dL 05/27/2017 Pt Bhk3290 PT 29.2 seconds 04/16/2017 Pt Qsc5903 INR 2.7 04/16/2017 Pt Obw7351 Low Intensity - 1.5-2.0 04/16/2017 Pt Oau1459 Mod intensity - 2.0-3.0 04/16/2017 Pt Sqi9224 Hi intensity - 3.0-4.0 04/16/2017 Pt Nrc0400 PT 30.7 seconds 03/31/2017 Pt Nww7281 INR 2.9 03/31/2017 Pt Oss8989 Low Intensity - 1.5-2.0 03/31/2017 Pt Sim5820 Mod intensity - 2.0-3.0 03/31/2017 Pt Gxv2954 Hi intensity - 3.0-4.0 03/31/2017 Pt Fjo8146 PT 21.3 seconds 03/26/2017 Pt Omp2386 INR 1.9 03/26/2017 Pt Yeg4921 Low Intensity - 1.5-2.0 03/26/2017 Pt Hyg9077 Mod intensity - 2.0-3.0 03/26/2017 Pt Dji3898 Hi intensity - 3.0-4.0 03/26/2017 Pt Cmu7471 PT 19.8 seconds 03/22/2017 Pt Sel3023 INR 1.7 03/22/2017 Pt Nwv8400 Low Intensity - 1.5-2.0 03/22/2017 Pt Bzb1372 Mod intensity - 2.0-3.0 03/22/2017 Pt Zfr7984 Hi intensity - 3.0-4.0 03/22/2017 Pt Nqg2102 PT 15.6 seconds 03/19/2017 Pt Qgm9569 INR 1.3 03/19/2017 Pt Ots2654 Low Intensity - 1.5-2.0 03/19/2017 Pt Ubz9344 Mod intensity - 2.0-3.0 03/19/2017 Pt Kso2546 Hi intensity - 3.0-4.0 03/19/2017 Pt Ndf0946 PT 13.7 seconds 03/15/2017 Pt Twj2047 INR 1.1 03/15/2017 Pt Efp2743 Low Intensity - 1.5-2.0 03/15/2017 Pt Ijm8566 Mod intensity - 2.0-3.0 03/15/2017 Pt Pen3260 Hi intensity - 3.0-4.0 03/15/2017 Pt Zbr2445 PT 25.8 seconds 01/28/2017 Pt Qpj4056 INR 2.4 01/28/2017 Pt Ock6817 Low Intensity - 1.5-2.0 01/28/2017 Pt Ney7511 Mod intensity - 2.0-3.0 01/28/2017 Pt Opb6452 Hi intensity - 3.0-4.0 01/28/2017 Pt Hct2383 PT 26.8 seconds 10/23/2016 Pt Vvn6525 INR 2.7 10/23/2016 Pt Lnf2201 Low Intensity - 1.5-2.0 10/23/2016 Pt Hmo0155 Mod intensity - 2.0-3.0 10/23/2016 Pt Yse0731 Hi intensity - 3.0-4.0 10/23/2016 %Hba1C Kfn033 % HbA1c 60395-4 6.4 % 10/23/2016 %Hba1C Auc705 Gluc Ave 137 mg/dL 10/23/2016 Comp Metabolic Fiw371 NA 138 mEq/L 10/23/2016 Comp Metabolic Iqa323 K 3.4 mEq/L 10/23/2016 Comp Metabolic Dvp236 CL 100 mEq/L 10/23/2016 Comp Metabolic Nij643 CO2 30.0 mEq/L 10/23/2016 Comp Metabolic Mgo851 AN ION GAP 11 10/23/2016 Comp Metabolic Ami897 GL UCOSE 139 mg/dL 10/23/2016 Comp Metabolic Mky811 Cr eat 0.9 mg/dL 10/23/2016 Comp Metabolic Ihz235 eG FR 62 ml/min/1.73m2 10/23 Comp Metabolic Trh664 BUN 22 mg/dL 10/23/2016 Comp Metabolic Ddz767 B/ C Ratio 23.4 Ratio 10/23/2016 Comp Metabolic Rjb983 CA LCIUM 8.7 mg/dL 10/23/2016 Comp Metabolic Wii554 AL K PHOS 66 U/L 10/23/2016 Comp Metabolic Luy688 T(SGOT) 20 U/L 10/23/2016 Comp Metabolic Ikb476 AL T(SGPT) 10 U/L 10/23/2016 Comp Metabolic Iqc017 BI LI T 0.5 mg/dL 10/23/2016 Comp Metabolic Ify876 AL BUMIN 3.5 g/dL 10/23/2016 Comp Metabolic Hzo842 TP RO 6.3 g/dL 10/23/2016 Comp Metabolic Voj136 GL OB 2.8 g/dL 10/23/2016 Comp Metabolic Nsh202 A/ G Ratio 1.3 Ratio 10/23/2016 Comp Metabolic Tvo306 Os mo 281 mOsmo 10/23/2016 Pt Hdn1116 PT 28.3 seconds 09/25/2016 Pt Sda0774 INR 2.8 09/25/2016 Pt Zua0272 Low Intensity - 1.5-2.0 09/25/2016 Pt Jfu4308 Mod intensity - 2.0-3.0 09/25/2016 Pt Vqq6700 Hi intensity - 3.0-4.0 09/25/2016 Metabolic Ord15 [...] Metabolic Ord15 CALCIUM 8.8 mg/dL 09/25/2016 Pt Swh9010 PT 30.6 seconds 09/11/2016 Pt Wwf0556 INR 3.2 09/11/2016 Pt Pen7294 Low Intensity - 1.5-2.0 09/11/2016 Pt Qsw4867 Mod intensity - 2.0-3.0 09/11/2016 Pt Lfi9666 Hi intensity - 3.0-4.0 09/11/2016 Comp Metabolic Iwk371 NA 138 mEq/L 09/11/2016 Comp Metabolic Bxr082 K 4.4 mEq/L 09/11/2016 Comp Metabolic Vwx368 CL 103 mEq/L 09/11/2016 Comp Metabolic Iny671 CO2 31.0 mEq/L 09/11/2016 Comp Metabolic Zpr133 AN ION GAP 8 09/11/2016 Comp Metabolic Maa616 GL UCOSE 146 mg/dL 09/11/2016 Comp Metabolic Knu132 Cr eat 1.0 mg/dL 09/11/2016 Comp Metabolic Sqf939 eG FR 60 ml/min/1.73m2 09/11 Comp Metabolic Mvr114 BUN 16 mg/dL 09/11/2016 Comp Metabolic Tuf435 B/ C Ratio 16.5 Ratio 09/11/2016 Comp Metabolic Rua435 CA LCIUM 8.7 mg/dL 09/11/2016 Comp Metabolic Syx079 AL K PHOS 52 U/L 09/11/2016 Comp Metabolic Zmz722 T(SGOT) 19 U/L 09/11/2016 Comp Metabolic Lvp824 AL T(SGPT) 11 U/L 09/11/2016 Comp Metabolic Jqf725 BI LI T 0.7 mg/dL 09/11/2016 Comp Metabolic Ftw604 AL BUMIN 3.3 g/dL 09/11/2016 Comp Metabolic Yyl293 TP RO 5.8 g/dL 09/11/2016 Comp Metabolic Hke635 GL OB 2.5 g/dL 09/11/2016 Comp Metabolic Wsf494 A/ G Ratio 1.3 Ratio 09/11/2016 Comp Metabolic Seh565 Os mo 280 mOsmo 09/11/2016 Comp Metabolic Vth051 NA 139 mEq/L 08/21/2016 Comp Metabolic Fjh717 K 4.1 mEq/L 08/21/2016 Comp Metabolic Lqd795 CL 102 mEq/L 08/21/2016 Comp Metabolic Iad653 CO2 30.0 mEq/L 08/21/2016 Comp Metabolic Xgw928 AN ION GAP 11 08/21/2016 Comp Metabolic Ytm253 GL UCOSE 148 mg/dL 08/21/2016 Comp Metabolic Nhn137 Cr eat 1.0 mg/dL 08/21/2016 Comp Metabolic Ngi405 eG FR 55 ml/min/1.73m2 08/21 Comp Metabolic Teu731 BUN 21 mg/dL 08/21/2016 Comp Metabolic Dna309 B/ C Ratio 20.2 Ratio 08/21/2016 Comp Metabolic Ukq588 CA LCIUM 9.4 mg/dL 08/21/2016 Comp Metabolic Yzo217 AL K PHOS 63 U/L 08/21/2016 Comp Metabolic Ere533 T(SGOT) 23 U/L 08/21/2016 Comp Metabolic Ucd203 AL T(SGPT) 16 U/L 08/21/2016 Comp Metabolic Kln583 BI LI T 0.6 mg/dL 08/21/2016 Comp Metabolic Tyg450 AL BUMIN 3.9 g/dL 08/21/2016 Comp Metabolic Xcj137 TP RO 6.8 g/dL 08/21/2016 Comp Metabolic Rgp265 GL OB 2.9 g/dL 08/21/2016 Comp Metabolic Iko530 A/ G Ratio 1.4 Ratio 08/21/2016 Comp Metabolic Qnf875 Os mo 283 mOsmo 08/21/2016 Sed Rate Ord21 ESR 16 mm/hr 08/21/2016 Magnesium Ord90 Mag 1.9 mg/dL 08/21/2016 Pt Btp8006 PT 27.2 seconds 08/21/2016 Pt Qre0497 INR 2.7 08/21/2016 Pt Cpt4128 Low Intensity - 1.5-2.0 08/21/2016 Pt Jsn7095 Mod intensity - 2.0-3.0 08/21/2016 Pt Khe3392 Hi intensity - 3.0-4.0 08/21/2016 C-Reactive Protein Qnt Crqnt CRP 0.1 mg/dl 08/21/2016 Pt Eii7795 PT 25.9 seconds 06/17/2016 Pt Nxn2667 INR 2.5 06/17/2016 Pt Gwq6691 Low Intensity - 1.5-2.0 06/17/2016 Pt Vdb4331 Mod intensity - 2.0-3.0 06/17/2016 Pt Jwg4477 Hi intensity - 3.0-4.0 06/17/2016 Tsh Ord6 hTSH II 2.13 uIU/mL 06/08/2016 Cbc With Differential Ord2 WBC 5.75 K/ul 06/08/2016 Cbc With Differential Ord2 RBC 4.59 M/ul 06/08/2016 Cbc With Differential Ord2 HGB 12.3 g/dl 06/08/2016 Cbc With Differential Ord2 Neut% 57.0 % 06/08/2016 Cbc With Differential Ord2 HCT 37.1 % 06/08/2016 Cbc With Differential Ord2 MCV 80.8 fl 06/08/2016 Cbc With Differential Ord2 Lymph% 24.3 % 06/08/2016 Cbc With Differential Ord2 [place]% 12.0 % 06/08/2016 Cbc With Differential Ord2 [...] 1.40 K/ul 06/08/2016 Cbc With Differential Ord2 [place] ABS# 0.7 K/ul 06/08/2016 Cbc With Differential Ord2 Eos ABS# 0.3 K/ul 06/08/2016 Cbc With Differential Ord2 Baso ABS# 0.1 K/ul 06/08/2016 Comp Metabolic Bix549 NA 138 mEq/L 06/08/2016 Comp Metabolic Wfb407 K 3.9 mEq/L 06/08/2016 Comp Metabolic Dza823 CL 105 mEq/L 06/08/2016 Comp Metabolic Dsw255 CO2 27.0 mEq/L 06/08/2016 Comp Metabolic Rxu228 AN ION GAP 10 06/08/2016 Comp Metabolic Gjt333 GL UCOSE 127 mg/dL 06/08/2016 Comp Metabolic Plk714 Cr eat 1.0 mg/dL 06/08/2016 Comp Metabolic Eev537 eG FR 59 ml/min/1.73m2 06/08 Comp Metabolic Ina804 BUN 19 mg/dL 06/08/2016 Comp Metabolic Hgx484 B/ C Ratio 19.4 Ratio 06/08/2016 Comp Metabolic Cvx245 CA LCIUM 9.2 mg/dL 06/08/2016 Comp Metabolic Mtw387 AL K PHOS 77 U/L 06/08/2016 Comp Metabolic Trv631 T(SGOT) 19 U/L 06/08/2016 Comp Metabolic Yso952 AL T(SGPT) 13 U/L 06/08/2016 Comp Metabolic Bys682 BI LI T 0.5 mg/dL 06/08/2016 Comp Metabolic Rlq491 AL BUMIN 3.8 g/dL 06/08/2016 Comp Metabolic Niw390 TP RO 6.6 g/dL 06/08/2016 Comp Metabolic Suz717 GL OB 2.8 g/dL 06/08/2016 Comp Metabolic Nyh308 A/ G Ratio 1.4 Ratio 06/08/2016 Comp Metabolic Rir039 Os mo 280 mOsmo 06/08/2016 Pt Wof3432 PT 36.1 seconds 06/08/2016 Pt Itl3336 INR 3.9 06/08/2016 Pt Hre1608 Low Intensity - 1.5-2.0 06/08/2016 Pt Tql5310 Mod intensity - 2.0-3.0 06/08/2016 Pt Mzq3782 Hi intensity - 3.0-4.0 06/08/2016 %Hba1C Glv497 % HbA1c 59945-4 6.2 % 06/08/2016 %Hba1C Wac973 Gluc Ave 131 mg/dL 06/08/2016 Free T4 Xcz613 FREE T4 0.79 ng/dL 06/08/2016 Lipid Ord30 CHOL 149 mg/dL 06/08/2016 Lipid Ord30 HDL 46.0 mg/dl 06/08/2016 Lipid Ord30 TRIG 279 mg/dL 06/08/2016 Lipid Ord30 LDL 47 mg/dL 06/08/2016 Lipid Ord30 C/HDL 3.2 Ratio 06/08/2016 Pt Tfw2059 PT 30.9 seconds 02/12/2016 Pt His5028 INR 3.2 02/12/2016 Pt Zdh6073 Low Intensity - 1.5-2.0 02/12/2016 Pt Lsd7816 Mod intensity - 2.0-3.0 02/12/2016 Pt Jzt1335 Hi intensity - 3.0-4.0 02/12/2016 Free T4 Bgs047 FREE T4 1.24 ng/dL 09/27/2015 Tsh Ord6 hTSH II 0.37 uIU/mL 09/27/2015 %Hba1C Iuy598 % HbA1c 41071-2 6.4 % 09/27/2015 %Hba1C Pev117 Gluc Ave 137 mg/dL 09/27/2015 Pt Fah9430 PT 26.2 seconds 09/27/2015 Pt Xpx4749 INR 2.5 09/27/2015 Pt Grs1344 Low Intensity - 1.5-2.0 09/27/2015 Pt Ikt4763 Mod intensity - 2.0-3.0 09/27/2015 Pt Ubu1608 Hi intensity - 3.0-4.0 09/27/2015 Pt Mgu4075 PT 27.6 seconds 2015 Pt Nuu2586 INR 2.7 2015 Pt Coe5198 Low Intensity - 1.5-2.0 2015 Pt Lyy6605 Mod intensity - 2.0-3.0 2015 Pt Cku0639 Hi intensity - 3.0-4.0 2015 %Hba1C Uun935 % HbA1c 34692-5 6.1 % 06/11/2015 %Hba1C Lmn399 Gluc Ave 128 mg/dL 06/11/2015 Cbc With [...] Ord2 RDW 15.8 % 06/10/2015 Comp Metabolic Pec090 NA 139 mEq/L 06/10/2015 Comp Metabolic Cna266 K 4.1 mEq/L 06/10/2015 Comp Metabolic Mug249 CL 105 mEq/L 06/10/2015 Comp Metabolic Cpo176 CO2 27.0 mEq/L 06/10/2015 Comp Metabolic Rwr655 AN ION GAP 11 06/10/2015 Comp Metabolic Sjk504 GL UCOSE 127 mg/dL 06/10/2015 Comp Metabolic Xno230 Cr eat 1.0 mg/dL 06/10/2015 Comp Metabolic Exa529 eG FR 59 ml/min/1.73m2 06/10 Comp Metabolic Dgd225 BUN 21 mg/dL 06/10/2015 Comp Metabolic Gvh136 B/ C Ratio 21.2 Ratio 06/10/2015 Comp Metabolic Oqu785 CA LCIUM 9.2 mg/dL 06/10/2015 Comp Metabolic Tmn635 AL K PHOS 87 U/L 06/10/2015 Comp Metabolic Jpg470 T(SGOT) 20 U/L 06/10/2015 Comp Metabolic Wzl227 AL T(SGPT) 17 U/L 06/10/2015 Comp Metabolic Wby568 BI LI T 0.4 mg/dL 06/10/2015 Comp Metabolic Jzb727 AL BUMIN 4.1 g/dL 06/10/2015 Comp Metabolic Cgr301 TP RO 7.2 g/dL 06/10/2015 Comp Metabolic Wsl368 GL OB 3.1 g/dL 06/10/2015 Comp Metabolic Dxx804 A/ G Ratio 1.3 Ratio 06/10/2015 Comp Metabolic Yyw145 Os mo 282 mOsmo 06/10/2015 Tsh Ord6 hTSH II 0.86 uIU/mL 06/10/2015 Lipid Ord30 CHOL 161 mg/dL 06/10/2015 Lipid Ord30 HDL 49.0 mg/dl 06/10/2015 Lipid Ord30 TRIG 208 mg/dL 06/10/2015 Lipid Ord30 LDL 70 mg/dL 06/10/2015 Lipid Ord30 C/HDL 3.3 Ratio 06/10/2015 Pt Umt9822 PT 25.0 seconds 04/09/2015 Pt Ndp5598 INR 2.4 04/09/2015 Pt Nar3622 Low Intensity - 1.5-2.0 04/09/2015 Pt Uiy6919 Mod intensity - 2.0-3.0 04/09/2015 Pt Gcd8712 Hi intensity - 3.0-4.0 04/09/2015 Pt Ngc2943 PT 27.2 seconds 01/22/2015 Pt Vuu9535 INR 2.6 01/22/2015 Pt Irs6513 Low Intensity - 1.5-2.0 01/22/2015 Pt Mxv1896 Mod intensity - 2.0-3.0 01/22/2015 Pt Pen0780 Hi intensity - 3.0-4.0 01/22/2015 Cbc With [...] Differential Ord2 RDW 15.2 % 01/22/2015 B12 Avu898 B12 402.00 pg/ml 01/22/2015 Lipid Ord30 CHOL 166 mg/dL 01/22/2015 Lipid Ord30 HDL 48.0 mg/dl 01/22/2015 Lipid Ord30 TRIG 264 mg/dL 01/22/2015 Lipid Ord30 LDL 65 mg/dL 01/22/2015 Lipid Ord30 C/HDL 3.5 Ratio 01/22/2015 Free T4 Ftn826 FREE T4 1.05 ng/dL 01/22/2015 Tsh Ord6 hTSH II 0.65 uIU/mL 01/22/2015 Comp Metabolic Jmd146 NA 138 mEq/L 01/22/2015 Comp Metabolic Yfa222 K 4.1 mEq/L 01/22/2015 Comp Metabolic Dws220 CL 104 mEq/L 01/22/2015 Comp Metabolic Cjq948 CO2 29.0 mEq/L 01/22/2015 Comp Metabolic Dgd012 AN ION GAP 9 01/22/2015 Comp Metabolic Fll300 GL UCOSE 106 mg/dL 01/22/2015 Comp Metabolic Ddl708 Cr eat 0.9 mg/dL 01/22/2015 Comp Metabolic Xvb392 eG FR 63 ml/min/1.73m2 01/22 Comp Metabolic Kcw685 BUN 21 mg/dL 01/22/2015 Comp Metabolic Yvk272 B/ C Ratio 22.3 Ratio 01/22/2015 Comp Metabolic Wrn357 CA LCIUM 9.4 mg/dL 01/22/2015 Comp Metabolic Nta598 AL K PHOS 83 U/L 01/22/2015 Comp Metabolic Njs463 T(SGOT) 23 U/L 01/22/2015 Comp Metabolic Kpq835 AL T(SGPT) 18 U/L 01/22/2015 Comp Metabolic Xzz697 BI LI T 0.8 mg/dL 01/22/2015 Comp Metabolic Wxn557 AL BUMIN 4.2 g/dL 01/22/2015 Comp Metabolic Zyx820 TP RO 7.3 g/dL 01/22/2015 Comp Metabolic Djk564 GL OB 3.1 g/dL 01/22/2015 Comp Metabolic Sdi294 A/ G Ratio 1.4 Ratio 01/22/2015 Comp Metabolic Kys225 Os mo 279 mOsmo 01/22/2015 Review of [...] Date URINALYSIS NONAUTO W /O SCOPE CPT-4: 10939 03/05/2017 Vital Signs Date Vital 01/18/2018 Blood Pressure 1: 132/74 Code: 8480-6 BMI: 43.5 Code: 10504-4 Heart Rate 1: 70 bpm Height: 5'1" SpO2: 97% Weight: 230 lbs 01/04/2018 Blood Pressure 1: 134/76 Code: 8480-6 BMI: 42.7 Code: 27374-2 Heart Rate 1: 83 bpm Height: 5'1" SpO2: 98% Weight: 226 lbs 09/23/2017 Blood Pressure 1: 124/76 Code: 8480-6 BMI: 42.3 Code: 89752-8 Heart Rate 1: 94 bpm Height: 5'1" SpO2: 96% Weight: 224 lbs 05/27/2017 Blood Pressure 1: 146/78 Code: 8480-6 BMI: 41.4 Code: 07912-4 Heart Rate 1: 85 bpm Height: 5'1" SpO2: 98% Weight: 219 lbs 02/24/2017 Blood Pressure 1: 138/66 Code: 8480-6 BMI: 41.4 Code: 07555-6 Heart Rate 1: 78 bpm Height: 5'1" SpO2: 97% Weight: 219 lbs 11/02/2016 Blood Pressure 1: 144/72 Code: 8480-6 BMI: 46.1 Code: 21112-5 Heart Rate 1: 78 bpm Height: 5'1" SpO2: 98% Weight: 244 lbs 09/30/2016 Blood Pressure 1: 130/76 Code: 8480-6 BMI: 45.0 Code: 01812-5 Heart Rate 1: 86 bpm Height: 5'1" SpO2: 98% Weight: 238 lbs 09/10/2016 Blood Pressure 1: 136/68 Code: 8480-6 BMI: 46.3 Code: 51145-8 Heart Rate 1: 83 bpm Height: 5'1" SpO2: 98% Weight: 245 lbs 08/20/2016 Blood Pressure 1: 142/78 Code: 8480-6 BMI: 45.3 Code: 18418-4 Heart Rate 1: 84 bpm Height: 5'1" SpO2: 99% Weight: 240 lbs 06/08/2016 Blood Pressure 1: 134/76 Code: 8480-6 BMI: 44.2 Code: 24362-6 Heart Rate 1: 86 bpm Height: 5'1" SpO2: 96% Weight: 234 lbs 04/02/2016 Blood Pressure 1: 142/70 Code: 8480-6 BMI: 44.6 Code: 17119-4 Heart Rate 1: 78 bpm Height: 5'1" SpO2: 97% Weight: 236 lbs 01/14/2016 Blood Pressure 1: 146/72 Code: 8480-6 BMI: 44.2 Code: 51416-9 Heart Rate 1: 86 bpm Height: 5'1" SpO2: 96% Weight: 234 lbs 10/02/2015 Blood Pressure 1: 158/76 Code: 8480-6 BMI: 44.2 Code: 10807-0 Heart Rate 1: 67 bpm Height: 5'1" SpO2: 97% Weight: 234 lbs 07/15/2015 Blood Pressure 1: 148/78 Code: 8480-6 Blood Pressure 1: 200/90 Code: 8480-6 BMI: 44.0 Code: 98610-7 Heart Rate 1: 89 bpm Height: 5'1" SpO2: 97% Weight: 233 lbs 06/10/2015 Blood Pressure 1: 140/82 Code: 8480-6 BMI: 44.0 Code: 32806-1 Heart Rate 1: 78 bpm Height: 5'1" [...] Encounters Encounter Performer Loca tion Codes Date ([id number]) [id number] EST. P ATIENT, LEVEL III Diagnosis: Localized edema[ICD10: R60.0] Diagnosis: Gastro-esophageal reflux disease without esophagitis[ICD10: K21.9] Edna Almanza MD, [facility] CPT-4: 69567 01/18/2018 ([id number]) [id number] EST. P ATIENT, LEVEL IV Diagnosis: Gastro-esophageal reflux disease without esophagitis[ICD10: K21.9] Diagnosis: Localized edema[ICD10: R60.0] Diagnosis: Essential (primary) hypertension[ICD10: I10] Diagnosis: Hypothyroidism, unspecified[ICD10: E03.9] Diagnosis: Impaired fasting glucose[ICD10: R73.01] Edna Almanza MD, [facility] CPT-4: 30525 01/04/2018 ([id number] EST. P ATIENT, LEVEL IV Diagnosis: Essential (primary) hypertension[ICD10: I10] Diagnosis: 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[ICD10: Z79.01] Diagnosis: Incisional hernia without obstruction or gangrene[ICD10: K43.2] Diagnosis: Right lower quadrant pain[ICD10: R10.31] Sarai Almanza MD, [facility] CPT-4: 40010 09/23/2017 [id number] EST. 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 PATIENT, LEVEL III Diagnosis: Pain in right hip[ICD10: M25.551] Nata Almanza MD, [facility] CPT-4: 36891 02/24/2017 ([id number]) [id number] EST. P ATIENT, LEVEL IV Diagnosis: Essential (primary) hypertension[ICD10: I10] Diagnosis: Localized edema[ICD10: R60.0] Diagnosis: Pain in right hip[ICD10: M25.551] Sarai Almanza MD, [facility] CPT-4: 66481 11/02/2016 ([id number]) [id number] EST. P ATIENT, LEVEL IV Diagnosis: Essential (primary) hypertension[ICD10: I10] Diagnosis: Localized edema[ICD10: R60.0] Sarai Almanza MD, [facility] CPT-4: 18159 09/30/2016 [id number] EST. PATIENT, LEVEL IV Diagnosis: Localized edema[ICD10: R60.0] Diagnosis: Pain in joints of left hand[ICD10: M25.542] Diagnosis: Pain in joints of right hand[ICD10: M25.541] Nata Almanza MD, [facility] CPT-4: 30350 09/10/2016 [id number] EST. PATIENT, LEVEL IV Diagnosis: Localized edema[ICD10: R60.0] Diagnosis: Pain in joints of left hand[ICD10: M25.542] Diagnosis: Pain in joints of right hand[ICD10: M25.541] Diagnosis: Other fatigue[ICD10: R53.83] Nata Almanza MD, [facility] CPT-4: 00709 08/20/2016 [id number] EST. PATIENT, LEVEL IV Diagnosis: Essential (primary) hypertension[ICD10: I10] Diagnosis: Other assisted (current) drug therapy[ICD10: Z79.899] Diagnosis: Tinnitus, bilateral[ICD10: H93.13] Nata Almanza MD, [facility] CPT-4: 54721 06/08/2016 96088 EST. PATIENT, LEVEL IV Diagnosis: Other allergic rhinitis[ICD10: J30.89] Diagnosis: Acute laryngopharyngitis[ICD10: J06.0] Nata Almanza MD, [facility] CPT-4: 29024 04/02/2016 [id number] EST. PATIENT, LEVEL IV Diagnosis: Left upper quadrant pain[ICD10: R10.12] Nata Almanza MD, [facility] CPT-4: 20236 01/14/2016 16979 EST. PATIENT, LEVEL IV Diagnosis: Pain in left shoulder[ICD10: M25.512] Diagnosis: Body mass index (BMI) 40.0-44.9, adult[ICD10: Z68.41] Nata Almanza MD, [facility] CPT-4: 02254 10/02/2015 02407 EST. PATIENT, LEVEL IV Diagnosis: Pain in left leg[ICD10: M79.605] Diagnosis: Other assisted (current) drug therapy[ICD10: Z79.899] Nata Almanza MD, [facility] CPT-4: 37076 07/15/2015 ([id number]) 90331 EST. 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: Other assisted (current) drug therapy[ICD10: Z79.899] Edna Almanza MD, [facility] CPT-4: 93217 06/10/2015 (12373) OFFICE VISI T, NEW - LEVEL 4 Diagnosis: ESSENTIAL HYPERTENSION[ICD9: 401.9] Diagnosis: HYPOTHYROIDISM[ICD9: 244.9] Diagnosis: ENCNTR LONG-RX USE NEC[ICD9: V58.69] Diagnosis: HYPERLIPIDEMIA[ICD9: 272.4] Diagnosis: Vitamin B12 deficiency[ICD9: 266.2] Diagnosis: Status post gastric surgery[ICD9: V45.89] Diagnosis: Snoring[ICD9: 786.09] [facility] CPT-4: 58024 01/22/2015 Plan of Care Planned Activity Notes [...] to further attempt to reduce peripheral edema. OIFO-qillosuz-oxwjgjmx prilosec BID and carafate QID -discussed low spice, low acidic diet 01/18/2018 Appointment: Edna Douglas WPtel: [phone] [phone] [place] (15 min) Moderate 01/18/2018 Patient [...] control. 01/04/2018 [phone] (30 min) Complex 01/04/2018 Patient Education: Patient Medication Summary Completed 01/04/2018 Care Plan: SCREENINGMAMMOGRAPHYDIGITAL [facility] : [id number] Pending 01/04/2018 Visit Plan: Abdominal hernia - not able to be taken to surgery by local providers and pt has been seen at [facility] and that surgeon felt like [place] would be better served by Dr. Betancur [...] [phone] [facility] [place] (15 min) Moderate 09/23/2017 [...] medications. 05/27/2017 Appointment: Edna Douglas WPtel: [phone] [phone] [place] (30 min) Complex 05/27/2017 Patient [...] [place]. 02/24/2017 App[facility]ment: [facility] [phone] [facility] [place] (30 min) Complex 02/24/2017 Patient [...] [place]. 11/02/2016 App[facility]ment: [facility] [phone] [facility] (15 min) Moderate 11/02/2016 Patient [...] edema. 09/30/2016 App[facility]ment: [facility] [phone] [facility] (15 min) Moderate 09/30/2016 Patient Education: Patient [...] peripheral edema. 09/10/2016 [phone] [phone] ([facility] min) Complex 09/10/2016 Patient Education: [...] edema. 08/20/2016 Appointment: Nata Hsu WPtel: [phone] [facility] (30 min) Complex 08/20/2016 Patient Education: Patient Medication Summary Completed 08/20/2016 Referral: Otf [facility] Referral Initiated 07/02/2016 Visit Plan: Chronic [...] 06/08/2016 Care Plan: Referral Order SNOMED-CT : [id number] Pending 06/08/2016 Visit Plan: URI - Pt [...] spray. 04/02/2016 App[facility]ment: [facility] [phone] [facility] ([facility] min) Complex 04/02/2016 Patient Education: [...] Appointment: Edna Douglas WPtel: [facility] [place] [id number] [address] (30 min) Complex 01/14/2016 Patient Education: Patient Medication Summary Completed 01/14/2016 Patient Education: Obesity Completed 01/14/2016 Care Plan: BMI Above normal followup DAVID F-MGMT EDUC & TRAIN 1 PT Pending 10/24/2015 Care Plan: X-RAY EXAM OF SHOULDER LOINC : 28712-1 Pending 10/24/2015 Visit Plan: Left shoulder pain [...] 10/02/2015 Appointment: Edna Douglas WPtel: [phone] (15 min) Moderate 10/02/2015 Patient Education: [...] Appointment: Sarai Almanza WPtel: [id number] (15 min) Moderate 04/22/2015 Visit [...] have surgical fixation - planning occurring at [facility]. Snoring - Sleep apnea symptoms with difficulty [...] to medications. 01/22/2015 Appointment: Sarai Almanza WPtel: [address] [place], [place] [id number] [place] ([place]) New Patient 01/22/2015 Patient Education: Patient Medication Summary Completed 01/22/2015 Patient Education: Hypertension Completed 01/22/2015 [id number] Referral Initiated Instructions Comment Come in Wednesday [...] have surgical fixation - planning occurring at [facility]. Snoring - Sleep apnea symptoms with difficulty [...] be better served by Dr. Betancur at [facility]. I have recommended a referral to [...] - Will refer to Dr. Lee . Left shoulder pain - pt states [...] to further attempt to reduce peripheral edema. [id number] prilosec BID and carafate QID -discussed low spice, low acidic diet
--- OUTSIDE RECORDS SUMMARY | 2020-01-17 00:05 | XMS REPORT | CCD ---
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 Name Role Phone PP Unavailable CCM Unavailable Summary Purpose Interface Exchange Insurance Providers Payer name Policy type / Coverage type Covered libertarian ID Effective Begin Date Effective End Date WPS Medicare Part B Medicare Part B [id number] 2017 Unknown Family history Father Diagnosis Age At Onset Hyperlipidemia Unknown Heart Attack Unknown Mother Diagnosis Age At Onset Arthritis Unknown Social History Social History Element Codes Description Effective Dates Marital status Unknown M ramone Evans 09/30/2016 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79 ICD-10: R53.83 Active 08/20/2016 Unknown Other joint terminal attack controller (cur rent) drug therapy ICD-9: V58.69 ICD-10: [...] cose ICD-9: 790.21 ICD-10: R73.01 05/27/2017 Active FDC (current) use of anticoagulants ICD-9: V58.61 ICD-10: Z79.01 05/27/2017 Active Mixed hyperlipidemia ICD-9: 272.4 ICD-10: E78.2 06/09/2015 Active Dysuria ICD-9: 788.1 ICD-10: R30.0 03/05/2017 Active Pain in right hip ICD-9: 719.45 ICD-10: M25.551 11/02/2016 Active Localized edema ICD-9: 782.3 ICD-10: R60.0 06/09/2015 Active Hyperglycemia, unspe cified ICD-9: 790.29 ICD-10: R73.9 06/10/2015 Active Personal history of other endocrine, nutritional and metabolic disease ICD-9: V12.29 ICD-10: Z86.39 09/18/2016 Active Pain in joints of le ft hand ICD-9: 719.44 ICD-10: M25.542 08/20/2016 Active Pain in joints of ri ght hand ICD-9: 719.44 ICD-10: M25.541 08/20/2016 Active Other fatigue ICD-9: 780.79 ICD-10: R53.83 08/20/2016 Active Other joint terminal attack controller (cur rent) drug therapy ICD-9: V58.69 ICD-10: [...] Start Date Stop Date Sta Fill Instructions clonazepam 0.5 mg ta blet RxNorm: 698831 1 Tablet(s) PO BID 08/04/2017 12/31/2017 Active omeprazole 20 mg cap chicho,delayed release RxNorm: 168749 TAKE 1 CAPSULE BY JAVON TH EVERY DAY 07/22/2017 07/16/2018 Active Generic For:PRILOSEC 20MG 07/22/2017 8: 58:20 AM Coumadin 4 mg tablet RxNorm: 580702 TAKE 1 TABLET BY MOUTH THREE TIMES PER W TRIBE (WEDNESDAY, WEDNESDAY AND WEDNESDAY) 07/22/2017 02/16/2018 Active Generic For:COUMADIN 4MG 07/22/2017 8:58:26 AM Coumadin 4 mg tablet RxNorm: 287127 TAKE 1 TABLET BY MOUTH THREE TIMES PER W TRIBE (WEDNESDAY, WEDNESDAY AND WEDNESDAY) 07/22/2017 02/16/2018 Active Generic For:COUMADIN 4MG 07/22/2017 8:58:26 AM sodium bicarbonate 6 50 mg tablet RxNorm: 794524 TAKE 2 TABLETS BY JAVON TH TWICE DAILY 06/22/2017 12/18/2017 Ac tive 06/19/2017 12:23:30 PM venlafaxine ER 75 mg capsule,extended release 24 hr RxNorm: 385600 TAKE 1 CAPSULE BY MOUTH ONCE DAILY 06/22/2017 06/16/2018 Active Generic For:*EFFEXOR XR 75MG 06/19/2017 12:23:45 PM Coumadin 5 mg tablet RxNorm: 497774 1 Tablet(s) PO UD 06/01/2017 No Stop Date Active Keflex 500 mg capsule RxNorm: 246149 1 Capsule(s) PO TID 05/27/2017 06/02/2017 Inactive Synthroid 137 mcg ta blet RxNorm: 298413 TAKE 1 TABLET BY MOUT H ONCE DAILY 05/24/2017 08/21/2017 Ac tive Generic For:SYNTHROID 137MCG TAB 2016 8:55:59 AM Carafate 1 gram tablet RxNorm: 135276 TAKE ONE TABLET BY MOUTH TWICE DAILY 05/24/2017 12/19/2017 Ac tive Generic For:CARAFATE 1GM 05/24/2017 8:5 5:54 AM spironolactone 25 mg tablet RxNorm: 238945 1 Tablet(s) PO daily 05/24/2017 05/18/2018 Active Detrol LA 4 mg capsu le,extended release RxNorm: 123964 1 Capsule(s) PO daily TAKE 1 CAPSULE BY MOUTH ONCE DAILY 05/10/2017 12/05/2017 Active Generic For:DETROL LA 4MG CAP 02/19/2017 2:36:00 PM Lasix 20 mg tablet RxNorm: 792031 TAKE ONE TABLET BY MOUTH DAILY 04/23/2017 08/20/2017 Ac tive Generic For:LASIX 20MG 04/23/2017 9:04: 01 AM allopurinol 300 mg t ablet RxNorm: 534231 TAKE 1 TABLET BY MOUT H ONCE DAILY. 04/23/2017 10/19/2017 Ac tive Generic For:ZYLOPRIM 300 MG TABLET 08/2016 9:03:57 AM Coumadin 4 mg tablet RxNorm: 061648 TAKE 1 TABLET BY MOUTH THREE TIMES PER W TRIBE (WEDNESDAY, WEDNESDAY AND WEDNESDAY) 04/23/2017 07/21/2017 Inactive Generic For:COUMADIN 4MG 04/23/2017 9:04:05 AM potassium chloride 2 0 mEq/15 mL oral liquid RxNorm: 118128 Milliliter(s) 30 Milliliter(s) (40mEq) PO daily 03/24/2017 07/21/2017 Inactive Lovenox 30 mg/0.3 mL subcutaneous syringe RxNorm: 685049 0.3 Milliliter(s) SQ Q12H 03/22/2017 03/26/2017 In active Lovenox 30 mg/0.3 mL subcutaneous syringe RxNorm: 090201 0.3 Milliliter(s) SQ Q12H 03/19/2017 03/20/2017 In active Lovenox 30 mg/0.3 mL subcutaneous syringe RxNorm: 682253 0.3 Milliliter(s) SQ Q12H 03/16/2017 03/18/2017 In active clonazepam 0.5 mg ta blet RxNorm: 894298 1 Tablet(s) PO BID 03/02/2017 07/28/2017 Inactive Lovenox 30 mg/0.3 mL subcutaneous syringe RxNorm: 170620 1 injection SQ BID do NOT take the night time dose the day before surgery, or the morning dose the day of surgery 03/01/2017 03/07/2017 Inactive Lovenox 30 mg/0.3 mL subcutaneous syringe RxNorm: 022427 1 injection SQ BID 03/01/2017 02/28/2017 In active Detrol LA 4 mg capsu le,extended release RxNorm: 510621 TAKE 1 CAPSULE BY JAVON TH ONCE DAILY 02/19/2017 05/09/2017 Inactive Generic For:DETROL LA 4MG C AP 02/19/2017 2:36:00 PM hydrocodone 5 mg-humberto taminophen 325 mg tablet RxNorm: 084439 1-2 Tablet(s) PO Q6 P RN 02/04/2017 No Stop Date Active Zetia 10 mg tablet RxNorm: 516008 TAKE 1 TABLET BY MOUTH DAILY 01/25/2017 05/24/2017 Inactive 01/23/2017 9:03:48 AM omeprazole 20 mg cap chicho,delayed release RxNorm: 098444 TAKE 1 CAPSULE BY AJVON TH EVERY DAY 01/25/2017 07/21/2017 Inactive Generic For:PRILOSEC 20MG 01/23/2017 9: 03:45 AM Coumadin 4 mg tablet RxNorm: 786200 TAKE 1 TABLET BY MOUTH THREE TIMES PER W TRIBE (WEDNESDAY, WEDNESDAY AND WEDNESDAY) 01/25/2017 04/22/2017 Inactive Generic For:COUMADIN 4MG 01/23/2017 9:03:51 AM sodium bicarbonate 6 50 mg tablet RxNorm: 362097 TAKE 2 TABLETS BY JAVON TH TWICE DAILY 12/24/2016 06/21/2017 In active 12/24/2016 9:09:27 AM Lasix 20 mg tablet RxNorm: 182020 1 Tablet(s) PO daily 12/24/2016 04/22/2017 Inactive Synthroid 137 mcg ta blet RxNorm: 618077 TAKE 1 TABLET BY MOUT H ONCE DAILY 11/24/2016 05/22/2017 In active Generic For:SYNTHROID 137MCG TAB 2016 9:04:37 AM Coumadin 4 mg tablet RxNorm: 660328 TAKE 1 TABLET BY MOUTH THREE TIMES PER W TRIBE (WEDNESDAY, WEDNESDAY AND WEDNESDAY) 11/24/2016 01/22/2017 Inactive Generic For:COUMADIN 4MG 11/24/2016 9:04:41 AM hydrocodone 5 mg-humberto taminophen 325 mg tablet RxNorm: 147748 1-2 Tablet(s) PO Q6 P RN 11/17/2016 02/03/2017 In active Carafate 1 gram tablet RxNorm: 523746 TAKE ONE TABLET BY MOUTH TWICE DAILY 10/27/2016 05/23/2017 In active Generic For:CARAFATE 1GM 10/26/2016 8:3 9:42 AM allopurinol 300 mg t ablet RxNorm: 634156 Tablet(s) TAKE 1 TABL ET BY MOUTH ONCE DAILY. 10/26/2016 04/22/2017 Inactive Lipitor 40 mg tablet RxNorm: 344450 1 Tablet(s) PO daily 09/25/2016 09/19/2017 Active Coumadin 4 mg tablet RxNorm: 307515 TAKE 1 TABLET BY MOUTH THREE TIMES PER W TRIBE (WEDNESDAY, WEDNESDAY AND WEDNESDAY) 09/25/2016 11/23/2016 Inactive Generic For:COUMADIN 4MG 09/25/2016 8:55:58 AM Zetia 10 mg tablet RxNorm: 012651 1 Tablet(s) PO daily 09/25/2016 01/22/2017 Inactive gave 1 month of samples clonazepam 0.5 mg ta blet RxNorm: 885954 1 Tablet(s) PO BID 09/21/2016 02/16/2017 Inactive Lasix 20 mg tablet RxNorm: 293214 1 Tablet(s) PO daily 09/15/2016 12/23/2016 Inactive potassium chloride 2 0 mEq/15 mL oral liquid RxNorm: 562960 Milliliter(s) 30 Milliliter(s) (40mEq) PO daily 09/15/2016 01/12/2017 Inactive Lasix 20 mg tablet RxNorm: 163448 2 Tablet(s) PO daily 09/10/2016 09/12/2016 Inactive Lasix 20 mg tablet RxNorm: 949691 1 Tablet(s) PO daily 08/28/2016 08/30/2016 Inactive Lasix 20 mg tablet RxNorm: 465193 1 Tablet(s) PO daily 08/20/2016 08/22/2016 Inactive Detrol LA 4 mg capsu le,extended release RxNorm: 100630 TAKE 1 CAPSULE BY JAVON TH ONCE DAILY 07/27/2016 02/18/2017 Inactive Generic For:DETROL LA 4MG C AP 07/27/2016 9:08:27 AM Coumadin 4 mg tablet RxNorm: 365861 1 Tablet(s) PO 3 x week wed th and sun 07/27/2016 09/24/2016 In active omeprazole 20 mg cap chicho,delayed release RxNorm: 047269 Capsule(s) PO TAKE 1 CAPSULE BY MOUTH ONCE DAILY 07/27/2016 01/22/2017 Inactive venlafaxine ER 75 mg capsule,extended release 24 hr RxNorm: 947291 1 Capsule(s) PO daily 06/29/2016 06/21/2017 Inactive sodium bicarbonate 6 50 mg tablet RxNorm: 462005 TAKE 2 TABLETS BY JAVON TH TWICE DAILY 06/29/2016 12/23/2016 In active 06/27/2016 9:05:39 AM Coumadin 4 mg tablet RxNorm: 691420 1 Tablet(s) PO 3 x week e th and sun 06/09/2016 06/08/2016 In active Coumadin 4 mg tablet RxNorm: 010770 1 Tablet(s) PO 3 x week e thur and sun 06/09/2016 07/26/2016 In active Zetia 10 mg tablet RxNorm: 912142 1 Tablet(s) PO daily 06/09/2016 06/08/2016 Inactive gave 1 month of samples Zetia 10 mg tablet RxNorm: 745061 1 Tablet(s) PO daily 06/09/2016 09/24/2016 Inactive gave 1 month of samples Effexor 75 mg tablet RxNorm: 140544 1 Tablet(s) PO daily 06/08/2016 06/28/2016 Inactive spironolactone 25 mg tablet RxNorm: 955471 1 Tablet(s) PO daily 06/08/2016 05/23/2017 Inactive Synthroid 137 mcg ta blet RxNorm: 901310 1 Tablet(s) PO daily 05/07/2016 11/02/2016 Inactive allopurinol 300 mg t ablet RxNorm: 496097 Tablet(s) TAKE 1 TABL ET BY MOUTH ONCE DAILY. 04/28/2016 10/24/2016 Inactive clonazepam 0.5 mg ta blet RxNorm: 966932 1 Tablet(s) PO BID 04/20/2016 09/15/2016 Inactive Flonase Allergy Reli ef 50 mcg/actuation nasal spray,suspension RxNorm: 5230183 1 [employer] NASAL BID 04/02/2016 No Stop Date Active Zithromax Z-Thomas 250 mg tablet RxNorm: 176326 Tablet(s) PO 04/02/2016 08/27/2016 Inactive cetirizine 10 mg tablet RxNorm: 4656755 1 Tablet(s) PO daily 04/02/2016 05/01/2016 Inactive Carafate 1 gram tablet RxNorm: 675809 Tablet(s) TAKE 1 TABLET TWICE A DAY FOR 30 DAYS 03/30/2016 10/25/2016 Inactive Generic For:CARAFATE 1GM 02/08/2015 12:3 6:39 PM Plavix 75 mg tablet RxNorm: 469993 1 Tablet(s) PO daily 03/11/2016 09/06/2016 Inactive sodium bicarbonate 6 50 mg tablet RxNorm: 858725 Tablet(s) 2 Tablet(s) PO BID 02/28/2016 06/26/2016 In active omeprazole 20 mg cap chicho,delayed release RxNorm: 482294 Capsule(s) PO TAKE 1 CAPSULE BY MOUTH ONCE DAILY 01/31/2016 07/26/2016 Inactive Fish Oil 1,000 mg ca psule RxNorm: 1 Capsule(s) PO BID 01/14/2016 No Stop Date Active Synthroid 137 mcg ta blet RxNorm: 448618 1 Tablet(s) PO daily 01/14/2016 05/06/2016 Inactive Detrol LA 4 mg capsu le,extended release RxNorm: 112141 TAKE 1 CAPSULE BY JVAON TH ONCE DAILY 12/30/2015 07/26/2016 Inactive Generic For:DETROL LA 4MG C AP 12/30/2015 9:11:01 AM potassium chloride 2 0 mEq/15 mL oral liquid RxNorm: 331983 Milliliter(s) 30 Milliliter(s) (40mEq) PO daily 12/02/2015 03/30/2016 Inactive sodium bicarbonate 6 50 mg tablet RxNorm: 449469 Tablet(s) 2 Tablet(s) PO BID 10/31/2015 02/27/2016 In active Lipitor 40 mg tablet RxNorm: 479921 1 Tablet(s) PO daily 10/09/2015 09/24/2016 Inactive sodium bicarbonate 6 50 mg tablet RxNorm: 035606 2 Tablet(s) PO BID 10/01/2015 10/30/2015 Inactive allopurinol 300 mg t ablet RxNorm: 361741 TAKE 1 TABLET BY MOUT H ONCE DAILY. 10/01/2015 04/27/2016 In active Generic For:ZYLOPRIM 300 MG TABLET 09/19 9:21:15 AM clonazepam 0.5 mg ta blet RxNorm: 588764 1 Tablet(s) PO BID 09/30/2015 04/19/2016 Inactive Coumadin 5 mg tablet RxNorm: 830913 1 Tablet(s) PO daily 09/27/2015 05/31/2017 Inactive Generic For:COUMADIN 5MG TAB N O T I C E PRESCRIPTION PREVIOUSLY AUTHORIZED BY DOCTOR:BOBBY ZULETA Synthroid 125 mcg ta blet RxNorm: 091305 1 Tablet(s) PO daily 09/27/2015 09/26/2015 Inactive Synthroid 125 mcg ta blet RxNorm: 286906 1 Tablet(s) PO daily 09/27/2015 01/13/2016 Inactive Carafate 1 gram tablet RxNorm: 959783 Tablet(s) TAKE 1 TABLET TWICE A DAY FOR 30 DAYS 09/02/2015 03/29/2016 Inactive Generic For:CARAFATE 1GM 02/08/2015 12:3 6:39 PM sodium bicarbonate 6 50 mg tablet RxNorm: 276331 2 Tablet(s) PO BID 09/02/2015 09/30/2015 Inactive Prilosec 20 mg capsu le,delayed release RxNorm: 709168 TAKE 1 CAPSULE BY JAVON TH ONCE DAILY 08/02/2015 01/28/2016 Inactive Generic For:PRILOSEC 20MG 08/02/2015 10:03:09 AM N O T I C E PRESCRIPTION PREVIOUSLY AUTHORIZED BY DOCTOR:BOBBY ZULETA Zyrtec 10 mg capsule RxNorm: 5125857 1 Capsule(s) PO daily 07/15/2015 08/13/2015 Inactive Keflex 500 mg capsule RxNorm: 008547 1 Capsule(s) PO TID 07/15/2015 07/21/2015 Inactive cetirizine 10 mg cap chicho RxNorm: 2467447 1 Capsule(s) PO daily 07/15/2015 08/13/2015 Inactive hydrocodone 5 mg-humberto taminophen 325 mg tablet RxNorm: 410639 1-2 Tablet(s) PO Q6 P RN 06/10/2015 11/16/2016 In active sodium bicarbonate 6 50 mg tablet RxNorm: 689173 2 Tablet(s) PO BID 06/03/2015 08/31/2015 Inactive Detrol LA 4 mg capsu le,extended release RxNorm: 120068 TAKE 1 CAPSULE BY JAVON TH ONCE DAILY 06/03/2015 12/29/2015 Inactive Generic For:DETROL LA 4MG C AP N O T I C E PRESCRIPTION PREVIOUSLY AUTHORIZED BY DOCTOR:BOBBY ZULETA atenolol 50 mg tablet RxNorm: 487532 1 Tablet(s) PO daily TAKE 1 TABLET BY MO UTH DAILY 05/07/2015 04/30/2016 Inactive Generic For:TENORMIN 50MG 05/04/2015 9:07:22 AM spironolactone 25 mg tablet RxNorm: 552561 1 Tablet(s) PO daily 05/06/2015 06/07/2016 Inactive venlafaxine ER 75 mg capsule,extended release 24 hr RxNorm: 734296 1 Capsule(s) PO daily 05/04/2015 06/28/2016 Inactive atenolol 50 mg tablet RxNorm: 577737 TAKE 1 TABLET BY MOUTH DAILY 05/04/2015 05/06/2015 Inactive Generic For:TENORMIN 50MG 05/04/2015 9: 07:22 AM Synthroid 150 mcg ta blet RxNorm: 731479 TAKE 1 TABLET BY MOUT H ONCE DAILY. 04/05/2015 09/26/2015 In active Generic For:SYNTHROID 150MCG TAB 2014 4:45:40 PM N O T I C E PRESCRIPTION PREVIOUSLY AUTHORIZED BY DOCTOR:BOBBY ZULETA Effexor 75 mg tablet RxNorm: 663013 1 Tablet(s) PO daily 04/05/2015 07/03/2015 Inactive Coumadin 5 mg tablet RxNorm: 196533 TAKE 1 AND 1/2 TABLETS BY MOUTH ONCE MYRANDA LY 04/04/2015 09/26/2015 In active Generic For:COUMADIN 5MG TAB N O T I C E PRESCRIPTION PREVIOUSLY AUTHORIZED BY DOCTOR:BOBBY ZULETA clonazepam 0.5 mg ta blet RxNorm: 211242 1 Tablet(s) PO BID 03/13/2015 11/05/2015 Inactive sodium bicarbonate 6 50 mg tablet RxNorm: 602293 2 Tablet(s) PO BID 03/08/2015 06/02/2015 Inactive allopurinol 300 mg t ablet RxNorm: 381162 TAKE 1 TABLET BY MOUT H ONCE DAILY. 03/05/2015 09/30/2015 In active N O T I C E PRESCRIPTION PREVIOUSLY A UTHORIZED BY DOCTOR:BOBBY ZULETA Plavix 75 mg tablet RxNorm: 962545 1 Tablet(s) PO daily 02/12/2015 09/09/2015 Inactive clonazepam 0.5 mg ta blet RxNorm: 540730 1 Tablet(s) PO BID 02/11/2015 03/11/2015 Inactive Carafate 1 gram tablet RxNorm: 910317 TAKE 1 TABLET TWICE A DAY FOR 30 DAYS 02/08/2015 02/07/2015 In active Generic For:CARAFATE 1GM 02/08/2015 12:3 6:39 PM Carafate 1 gram tablet RxNorm: 638347 Tablet(s) TAKE 1 TABLET TWICE A DAY FOR 30 DAYS 02/08/2015 09/01/2015 Inactive Generic For:CARAFATE 1GM 02/08/2015 12:3 6:39 PM potassium chloride 2 0 mEq/15 mL oral liquid RxNorm: 924031 30 Milliliter(s) (40m Eq) PO daily 02/05/2015 12/01/2015 Inactive atenolol 50 mg tablet RxNorm: 553102 1 Tablet(s) PO daily 02/04/2015 05/03/2015 Inactive [SAVINGS FOR NON-COVERED DRUGS -- BIN:00 3585, PCN: [id number], Group: XXXXX, ID# XXXXXXX, Questions: . THIS IS NOT INSURANCE.] potassium chloride 2 0 mEq/15 mL oral liquid RxNorm: 125749 30 Milliliter(s) (40m Eq) PO daily 01/08/2015 02/04/2015 Inactive potassium chloride 2 0 mEq/15 mL oral liquid RxNorm: 384621 30 Milliliter(s) (40m Eq) PO daily 12/07/2014 01/07/2015 Inactive atenolol 50 mg tablet RxNorm: 869936 1 Tablet(s) PO daily 11/09/2014 11/08/2014 Inactive atenolol 50 mg tablet RxNorm: 838444 1 Tablet(s) PO daily 11/09/2014 02/03/2015 Inactive [SAVINGS FOR NON-COVERED DRUGS -- BIN:00 3585, PCN: [id number], Group: XXXXX, ID# XXXXXXX, Questions: . THIS IS NOT INSURANCE.] cranberry 1,000 mg c apsule RxNorm: 938448 1 Capsule(s) PO daily No Start Date Active Voltaren 1 % topical gel RxNorm: 199834 TOP No St art Date Active atenolol 50 mg tablet RxNorm: 352442 1 Tablet(s) PO daily No Start Date Active verapamil ER (HS) 24 0 mg tablet,extended release 24 hr RxNorm: 336553 1 Tablet(s) PO daily No Start Date Active aspirin 81 mg tablet RxNorm: 702083 1 Tablet(s) PO daily No Start Date Active Zofran 4 mg tablet RxNorm: 530491 1 Tablet(s) PO PRN No Start Date Active B12 1000 mcg RxNorm: 1 Tablet(s) PO daily No Start Date Active Lipitor 40 mg tablet RxNorm: 331219 1 Tablet(s) PO daily No Start Date 10/08/2015 Inactive magnesium oxide 400 mg capsule RxNorm: 475167 2 Capsule(s) PO BID No Start Date Active Synthroid 150 mcg ta blet RxNorm: 690523 1 Tablet(s) PO daily No Start Date 04/04/2015 Inactive Coumadin 5 mg tablet RxNorm: 635254 1 Tablet(s) PO daily No Start Date 04/03/2015 Inactive allopurinol 300 mg t ablet RxNorm: 593807 1 Tablet(s) PO daily No Start Date 03/04/2015 Inactive Prilosec 20 mg capsu le,delayed release RxNorm: 740208 1 Capsule(s) PO PRN No Start Date 08/01/2015 Inactive potassium chloride 2 0 mEq/15 mL oral liquid RxNorm: 177340 30 Milliliter(s) (40m Eq) PO daily No Start Date 12/06/2014 Inactive Effexor 75 mg tablet RxNorm: 328109 1 Tablet(s) PO daily No Start Date 04/04/2015 Inactive Carafate 1 gram tablet RxNorm: 258483 1 Tablet(s) PO BID No Start Date 02/07/2015 Inactive clonazepam 0.5 mg ta blet RxNorm: 738071 1 Tablet(s) PO BID No Start Date 02/10/2015 Inactive Plavix 75 mg tablet RxNorm: 853494 1 Tablet(s) PO daily No Start Date 02/11/2015 Inactive sodium bicarbonate 6 50 mg tablet RxNorm: 751268 2 Tablet(s) PO BID No Start Date 09/01/2015 Inactive Lovenox 30 mg/0.3 mL subcutaneous syringe RxNorm: 325166 0.3 Milliliter(s) SQ Q12H No Start Date 03/15/2017 Inactive Fish Oil 1,000 mg ca psule RxNorm: 1 Capsule(s) PO daily No Start Date 01/13/2016 Inactive Detrol LA 4 mg capsu le,extended release RxNorm: 125032 1 Capsule(s) PO daily No Start Date 06/02/2015 Inactive Medication Administered No Medication Administered data Immunizations No Immunization data Assessments Condition Codes Effectiv e Dates Impaired fasting glucose ICD-10: R73 .01 ICD-9: 790.21 05/27/2017 Mixed hyperlipidemia ICD-10: E78.2 ICD-9: 272.4 05/27/2017 Hypothyroidism, unspecified ICD-10: E03.9 ICD-9: 244.9 05/27/2017 Essential (primary) hypertension ICD -10: I10 ICD-9: 401.9 05/27/2017 oysterman (current) use of anticoagulants ICD-10: Z79.01 ICD-9: V58.61 05/27/2017 Dysuria ICD-10: R30.0 ICD-9: 788.1 03/05/2017 Pain in right hip ICD-10: M25.551 ICD-9: 719.45 02/24/2017 Localized edema ICD-10: R60.0 ICD-9: 782.3 11/02/2016 Hyperglycemia, unspecified ICD-10: R 73.9 ICD-9: 790.29 10/08/2016 Personal history of other endocrine, nut ritional and metabolic disease ICD-10: Z86.39 ICD-9: V12.29 09/18/2016 Pain in joints of right hand ICD-10: M25.541 ICD-9: 719.44 09/10/2016 Pain in joints of left hand ICD-10: M25.542 ICD-9: 719.44 09/10/2016 Other fatigue ICD-10: R53.83 ICD-9: 780.79 08/20/2016 Other joint terminal attack controller (current) drug therapy ICD-10: Z79.899 ICD-9: V58.69 [...] Reason For Visit Effective Dates Notes hypertension 05/27/2017 pre-op/surgery consult 02/24/2017 hypertension 11/02/2016 hypertension 09/30/2016 edema 09/10/2016 medication follow up 08/20/2016 medication follow up 06/08/2016 cough 04/02/2016 abdominal pain 01/14/2016 shoulder pain 10/02/2015 edema 07/15/2015 weight gain/obesity 06/10/2015 hernia 01/22/2015 right sided abdomen with previous ileostomy Results Observation Observation Code Item Item Code Result Date Tsh Ord6 hTSH II 2.08 uIU/mL 05/27/2017 [...] 29.3 pg 05/27/2017 Cbc With Differential Ord2 Scurry% 8.1 % 05/27/2017 Cbc With Differential Ord2 [...] 1.11 K/ul 05/27/2017 Cbc With Differential Ord2 Scurry ABS# 0.6 K/ul 05/27/2017 Cbc With Differential Ord2 Eos ABS# 0.2 K/ul 05/27/2017 Cbc With Differential Ord2 Baso ABS# 0.1 K/ul 05/27/2017 Pt [id number] PT 28.2 seconds 05/27/2017 Pt Ydx9778 INR 2.6 05/27/2017 Pt Fdt1208 Low Intensity - 1.5-2.0 05/27/2017 Pt Uzk2426 Mod intensity - 2.0-3.0 05/27/2017 Pt Uns3566 Hi intensity - 3.0-4.0 05/27/2017 Lipid Ord30 CHOL 167 mg/dL 05/27/2017 Lipid Ord30 HDL 49.0 mg/dl 05/27/2017 Lipid Ord30 TRIG 347 mg/dL 05/27/2017 Lipid Ord30 LDL 49 mg/dL 05/27/2017 Lipid Ord30 C/HDL 3.4 Ratio 05/27/2017 Magnesium Ord90 Mag 1.4 mg/dL 05/27/2017 %Hba1C Wae265 % HbA1c 48488-0 5.9 % 05/27/2017 %Hba1C Tnb725 Gluc Ave 123 mg/dL 05/27/2017 Comp Metabolic Dtu562 NA 138 mEq/L 05/27/2017 Comp Metabolic Qmo007 K 4.1 mEq/L 05/27/2017 Comp Metabolic Lpw080 CL 101 mEq/L 05/27/2017 Comp Metabolic Unn030 CO2 31.0 mEq/L 05/27/2017 Comp Metabolic Tma964 AN ION GAP 10 05/27/2017 Comp Metabolic Knk668 GL UCOSE 117 mg/dL 05/27/2017 Comp Metabolic Xwl671 Cr eat 0.9 mg/dL 05/27/2017 Comp Metabolic Mmo797 eG FR 62 ml/min/1.73m2 05/27 Comp Metabolic Yjw843 BUN 25 mg/dL 05/27/2017 Comp Metabolic Mxr759 B/ C Ratio 26.6 Ratio 05/27/2017 Comp Metabolic Qqc875 CA LCIUM 9.5 mg/dL 05/27/2017 Comp Metabolic Iju594 AL K PHOS 73 U/L 05/27/2017 Comp Metabolic Soj002 T(SGOT) 18 U/L 05/27/2017 Comp Metabolic Zps493 AL T(SGPT) 12 U/L 05/27/2017 Comp Metabolic Axa905 BI LI T 0.5 mg/dL 05/27/2017 Comp Metabolic Hfb375 AL BUMIN 4.1 g/dL 05/27/2017 Comp Metabolic Oil215 TP RO 7.1 g/dL 05/27/2017 Comp Metabolic Top561 GL OB 3.0 g/dL 05/27/2017 Comp Metabolic Cts789 A/ G Ratio 1.3 Ratio 05/27/2017 Comp Metabolic Ebk785 Os mo 281 mOsmo 05/27/2017 Free T4 Oee754 FREE T4 0.91 ng/dL 05/27/2017 Pt Hxu9988 PT 29.2 seconds 04/16/2017 Pt Ayl1572 INR 2.7 04/16/2017 Pt Dei0825 Low Intensity - 1.5-2.0 04/16/2017 Pt Yax3327 Mod intensity - 2.0-3.0 04/16/2017 Pt Bif0446 Hi intensity - 3.0-4.0 04/16/2017 Pt Lpv5458 PT 30.7 seconds 03/31/2017 Pt Nkd9633 INR 2.9 03/31/2017 Pt Fwm7814 Low Intensity - 1.5-2.0 03/31/2017 Pt Qtl2428 Mod intensity - 2.0-3.0 03/31/2017 Pt Mbk8975 Hi intensity - 3.0-4.0 03/31/2017 Pt Hgg2538 PT 21.3 seconds 03/26/2017 Pt Tma0096 INR 1.9 03/26/2017 Pt Qwp6842 Low Intensity - 1.5-2.0 03/26/2017 Pt Otk3192 Mod intensity - 2.0-3.0 03/26/2017 Pt Hze1766 Hi intensity - 3.0-4.0 03/26/2017 Pt Jak4192 PT 19.8 seconds 03/22/2017 Pt Mvu9571 INR 1.7 03/22/2017 Pt Cfd4699 Low Intensity - 1.5-2.0 03/22/2017 Pt Ifr2135 Mod intensity - 2.0-3.0 03/22/2017 Pt Iey6353 Hi intensity - 3.0-4.0 03/22/2017 Pt Feb1613 PT 15.6 seconds 03/19/2017 Pt Jrs4632 INR 1.3 03/19/2017 Pt Mcl5691 Low Intensity - 1.5-2.0 03/19/2017 Pt Hhx2990 Mod intensity - 2.0-3.0 03/19/2017 Pt Ecn1340 Hi intensity - 3.0-4.0 03/19/2017 Pt Mwu4499 PT 13.7 seconds 03/15/2017 Pt Kly1152 INR 1.1 03/15/2017 Pt Ubw2880 Low Intensity - 1.5-2.0 03/15/2017 Pt Vcw0932 Mod intensity - 2.0-3.0 03/15/2017 Pt Fhc0411 Hi intensity - 3.0-4.0 03/15/2017 Pt Xlj5440 PT 25.8 seconds 01/28/2017 Pt Zpg5191 INR 2.4 01/28/2017 Pt Ykv0177 Low Intensity - 1.5-2.0 01/28/2017 Pt Pwz3960 Mod intensity - 2.0-3.0 01/28/2017 Pt Jkj5134 Hi intensity - 3.0-4.0 01/28/2017 %Hba1C Now506 % HbA1c 36623-4 6.4 % 10/23/2016 %Hba1C Vbu241 Gluc Ave 137 mg/dL 10/23/2016 Comp Metabolic Sse643 NA 138 mEq/L 10/23/2016 Comp Metabolic Pec407 K 3.4 mEq/L 10/23/2016 Comp Metabolic Twh017 CL 100 mEq/L 10/23/2016 Comp Metabolic Pqu234 CO2 30.0 mEq/L 10/23/2016 Comp Metabolic Aqd119 AN ION GAP 11 10/23/2016 Comp Metabolic Yst307 GL UCOSE 139 mg/dL 10/23/2016 Comp Metabolic Dxn795 Cr eat 0.9 mg/dL 10/23/2016 Comp Metabolic Pnp026 eG FR 62 ml/min/1.73m2 10/23 Comp Metabolic Osl007 BUN 22 mg/dL 10/23/2016 Comp Metabolic Wgx833 B/ C Ratio 23.4 Ratio 10/23/2016 Comp Metabolic Eim491 CA LCIUM 8.7 mg/dL 10/23/2016 Comp Metabolic Vmh210 AL K PHOS 66 U/L 10/23/2016 Comp Metabolic Ttr824 T(SGOT) 20 U/L 10/23/2016 Comp Metabolic Zpn091 AL T(SGPT) 10 U/L 10/23/2016 Comp Metabolic Iot234 BI LI T 0.5 mg/dL 10/23/2016 Comp Metabolic Vyk152 AL BUMIN 3.5 g/dL 10/23/2016 Comp Metabolic Mpk183 TP RO 6.3 g/dL 10/23/2016 Comp Metabolic Cly554 GL OB 2.8 g/dL 10/23/2016 Comp Metabolic Gwo096 A/ G Ratio 1.3 Ratio 10/23/2016 Comp Metabolic Stz174 Os mo 281 mOsmo 10/23/2016 Pt Nwf7075 PT 26.8 seconds 10/23/2016 Pt Hly0944 INR 2.7 10/23/2016 Pt Pgm1309 Low Intensity - 1.5-2.0 10/23/2016 Pt Voj2442 Mod intensity - 2.0-3.0 10/23/2016 Pt Tuq5498 Hi intensity - 3.0-4.0 10/23/2016 Pt Hvw1255 PT 28.3 seconds 09/25/2016 Pt Lvy1295 INR 2.8 09/25/2016 Pt Agl6613 Low Intensity - 1.5-2.0 09/25/2016 Pt Iyc7957 Mod intensity - 2.0-3.0 09/25/2016 Pt Ezi6771 Hi intensity - 3.0-4.0 09/25/2016 Metabolic Ord15 [...] Metabolic Ord15 CALCIUM 8.8 mg/dL 09/25/2016 Pt Ffo0297 PT 30.6 seconds 09/11/2016 Pt Mia4210 INR 3.2 09/11/2016 Pt Gka3104 Low Intensity - 1.5-2.0 09/11/2016 Pt Dcm2661 Mod intensity - 2.0-3.0 09/11/2016 Pt Lng1787 Hi intensity - 3.0-4.0 09/11/2016 Comp Metabolic Msi360 NA 138 mEq/L 09/11/2016 Comp Metabolic Fid350 K 4.4 mEq/L 09/11/2016 Comp Metabolic Tsf798 CL 103 mEq/L 09/11/2016 Comp Metabolic Hrn941 CO2 31.0 mEq/L 09/11/2016 Comp Metabolic Ryi700 AN ION GAP 8 09/11/2016 Comp Metabolic Vce034 GL UCOSE 146 mg/dL 09/11/2016 Comp Metabolic Vsb559 Cr eat 1.0 mg/dL 09/11/2016 Comp Metabolic Sqq305 eG FR 60 ml/min/1.73m2 09/11 Comp Metabolic Ivi786 BUN 16 mg/dL 09/11/2016 Comp Metabolic Oys297 B/ C Ratio 16.5 Ratio 09/11/2016 Comp Metabolic Pwv950 CA LCIUM 8.7 mg/dL 09/11/2016 Comp Metabolic Wgv115 AL K PHOS 52 U/L 09/11/2016 Comp Metabolic Cmd169 T(SGOT) 19 U/L 09/11/2016 Comp Metabolic Cak591 AL T(SGPT) 11 U/L 09/11/2016 Comp Metabolic Wvi832 BI LI T 0.7 mg/dL 09/11/2016 Comp Metabolic Nfn548 AL BUMIN 3.3 g/dL 09/11/2016 Comp Metabolic Aqb620 TP RO 5.8 g/dL 09/11/2016 Comp Metabolic Fkb921 GL OB 2.5 g/dL 09/11/2016 Comp Metabolic Bsy097 A/ G Ratio 1.3 Ratio 09/11/2016 Comp Metabolic Efj449 Os mo 280 mOsmo 09/11/2016 C-Reactive Protein Qnt Crqnt CRP 0.1 mg/dl 08/21/2016 Comp Metabolic Esy897 NA 139 mEq/L 08/21/2016 Comp Metabolic Zjv358 K 4.1 mEq/L 08/21/2016 Comp Metabolic Aow831 CL 102 mEq/L 08/21/2016 Comp Metabolic Xdc766 CO2 30.0 mEq/L 08/21/2016 Comp Metabolic Cqg507 AN ION GAP 11 08/21/2016 Comp Metabolic Zfo526 GL UCOSE 148 mg/dL 08/21/2016 Comp Metabolic Pvk847 Cr eat 1.0 mg/dL 08/21/2016 Comp Metabolic Alh629 eG FR 55 ml/min/1.73m2 08/21 Comp Metabolic Auh553 BUN 21 mg/dL 08/21/2016 Comp Metabolic Cuy873 B/ C Ratio 20.2 Ratio 08/21/2016 Comp Metabolic Jhw820 CA LCIUM 9.4 mg/dL 08/21/2016 Comp Metabolic Mnq400 AL K PHOS 63 U/L 08/21/2016 Comp Metabolic Oxr664 T(SGOT) 23 U/L 08/21/2016 Comp Metabolic Izn804 AL T(SGPT) 16 U/L 08/21/2016 Comp Metabolic Tfy382 BI LI T 0.6 mg/dL 08/21/2016 Comp Metabolic Usf822 AL BUMIN 3.9 g/dL 08/21/2016 Comp Metabolic Vzd900 TP RO 6.8 g/dL 08/21/2016 Comp Metabolic Rdq500 GL OB 2.9 g/dL 08/21/2016 Comp Metabolic Oof612 A/ G Ratio 1.4 Ratio 08/21/2016 Comp Metabolic Ptz439 Os mo 283 mOsmo 08/21/2016 Sed Rate Ord21 ESR 16 mm/hr 08/21/2016 Pt Fti0061 PT 27.2 seconds 08/21/2016 Pt Uor7131 INR 2.7 08/21/2016 Pt Aia4040 Low Intensity - 1.5-2.0 08/21/2016 Pt Pnm7559 Mod intensity - 2.0-3.0 08/21/2016 Pt Pdk2090 Hi intensity - 3.0-4.0 08/21/2016 Magnesium Ord90 Mag 1.9 mg/dL 08/21/2016 Pt Jgd2387 PT 25.9 seconds 06/17/2016 Pt Mlb4585 INR 2.5 06/17/2016 Pt Npo1542 Low Intensity - 1.5-2.0 06/17/2016 Pt Gxa2983 Mod intensity - 2.0-3.0 06/17/2016 Pt Wxd1521 Hi intensity - 3.0-4.0 06/17/2016 Tsh Ord6 hTSH II 2.13 uIU/mL 06/08/2016 Free T4 Vaq720 FREE T4 0.79 ng/dL 06/08/2016 Cbc With [...] 80.8 fl 06/08/2016 Cbc With Differential Ord2 Scurry% 12.0 % 06/08/2016 Cbc With Differential Ord2 [...] 1.40 K/ul 06/08/2016 Cbc With Differential Ord2 Scurry ABS# 0.7 K/ul 06/08/2016 Cbc With Differential Ord2 Eos ABS# 0.3 K/ul 06/08/2016 Cbc With Differential Ord2 Baso ABS# 0.1 K/ul 06/08/2016 %Hba1C Aru716 % HbA1c 58233-1 6.2 % 06/08/2016 %Hba1C Arj775 Gluc Ave 131 mg/dL 06/08/2016 Comp Metabolic Wkz339 NA 138 mEq/L 06/08/2016 Comp Metabolic Sxm356 K 3.9 mEq/L 06/08/2016 Comp Metabolic Mmn326 CL 105 mEq/L 06/08/2016 Comp Metabolic Cvy404 CO2 27.0 mEq/L 06/08/2016 Comp Metabolic Ede998 AN ION GAP 10 06/08/2016 Comp Metabolic Iys977 GL UCOSE 127 mg/dL 06/08/2016 Comp Metabolic Goy019 Cr eat 1.0 mg/dL 06/08/2016 Comp Metabolic Tiz399 eG FR 59 ml/min/1.73m2 06/08 Comp Metabolic Axi794 BUN 19 mg/dL 06/08/2016 Comp Metabolic Pgv267 B/ C Ratio 19.4 Ratio 06/08/2016 Comp Metabolic Mmw196 CA LCIUM 9.2 mg/dL 06/08/2016 Comp Metabolic Buo763 AL K PHOS 77 U/L 06/08/2016 Comp Metabolic Cww675 T(SGOT) 19 U/L 06/08/2016 Comp Metabolic Aov193 AL T(SGPT) 13 U/L 06/08/2016 Comp Metabolic Epq943 BI LI T 0.5 mg/dL 06/08/2016 Comp Metabolic Eec269 AL BUMIN 3.8 g/dL 06/08/2016 Comp Metabolic Blq045 TP RO 6.6 g/dL 06/08/2016 Comp Metabolic Srd953 GL OB 2.8 g/dL 06/08/2016 Comp Metabolic Jgt509 A/ G Ratio 1.4 Ratio 06/08/2016 Comp Metabolic Ois875 Os mo 280 mOsmo 06/08/2016 Pt Sgl8340 PT 36.1 seconds 06/08/2016 Pt Guk7426 INR 3.9 06/08/2016 Pt Maw0365 Low Intensity - 1.5-2.0 06/08/2016 Pt Plc3567 Mod intensity - 2.0-3.0 06/08/2016 Pt Ryn7854 Hi intensity - 3.0-4.0 06/08/2016 Lipid Ord30 CHOL 149 mg/dL 06/08/2016 Lipid Ord30 HDL 46.0 mg/dl 06/08/2016 Lipid Ord30 TRIG 279 mg/dL 06/08/2016 Lipid Ord30 LDL 47 mg/dL 06/08/2016 Lipid Ord30 C/HDL 3.2 Ratio 06/08/2016 Pt Ina9754 PT 30.9 seconds 02/12/2016 Pt Wfj4869 INR 3.2 02/12/2016 Pt Wvx8218 Low Intensity - 1.5-2.0 02/12/2016 Pt Pnt0216 Mod intensity - 2.0-3.0 02/12/2016 Pt Kav0191 Hi intensity - 3.0-4.0 02/12/2016 Free T4 Waf436 FREE T4 1.24 ng/dL 09/27/2015 %Hba1C Tjf970 % HbA1c 05001-1 6.4 % 09/27/2015 %Hba1C Mxq610 Gluc Ave 137 mg/dL 09/27/2015 Tsh Ord6 hTSH II 0.37 uIU/mL 09/27/2015 Pt Njw2573 PT 26.2 seconds 09/27/2015 Pt Igj7339 INR 2.5 09/27/2015 Pt Mtx0783 Low Intensity - 1.5-2.0 09/27/2015 Pt Wxy7228 Mod intensity - 2.0-3.0 09/27/2015 Pt Qde9928 Hi intensity - 3.0-4.0 09/27/2015 Pt Dnn7470 PT 27.6 seconds 2015 Pt Mic3836 INR 2.7 2015 Pt Jzg7208 Low Intensity - 1.5-2.0 2015 Pt Cyk9266 Mod intensity - 2.0-3.0 2015 Pt Lgt3490 Hi intensity - 3.0-4.0 2015 %Hba1C Bea386 % HbA1c 03120-4 6.1 % 06/11/2015 %Hba1C Jsv865 Gluc Ave 128 mg/dL 06/11/2015 Cbc With [...] Ord2 RDW 15.8 % 06/10/2015 Comp Metabolic Nsm165 NA 139 mEq/L 06/10/2015 Comp Metabolic Izn240 K 4.1 mEq/L 06/10/2015 Comp Metabolic Aef532 CL 105 mEq/L 06/10/2015 Comp Metabolic Toa943 CO2 27.0 mEq/L 06/10/2015 Comp Metabolic Fbc745 AN ION GAP 11 06/10/2015 Comp Metabolic Oeo706 GL UCOSE 127 mg/dL 06/10/2015 Comp Metabolic Rfd384 Cr eat 1.0 mg/dL 06/10/2015 Comp Metabolic Kaa218 eG FR 59 ml/min/1.73m2 06/10 Comp Metabolic Ubb254 BUN 21 mg/dL 06/10/2015 Comp Metabolic Zza337 B/ C Ratio 21.2 Ratio 06/10/2015 Comp Metabolic Vhs311 CA LCIUM 9.2 mg/dL 06/10/2015 Comp Metabolic Buj791 AL K PHOS 87 U/L 06/10/2015 Comp Metabolic Slk326 T(SGOT) 20 U/L 06/10/2015 Comp Metabolic Wwr884 AL T(SGPT) 17 U/L 06/10/2015 Comp Metabolic Ufj475 BI LI T 0.4 mg/dL 06/10/2015 Comp Metabolic Vso389 AL BUMIN 4.1 g/dL 06/10/2015 Comp Metabolic Ssh618 TP RO 7.2 g/dL 06/10/2015 Comp Metabolic Ymt738 GL OB 3.1 g/dL 06/10/2015 Comp Metabolic Tlu529 A/ G Ratio 1.3 Ratio 06/10/2015 Comp Metabolic Pum056 Os mo 282 mOsmo 06/10/2015 Tsh Ord6 hTSH II 0.86 uIU/mL 06/10/2015 Lipid Ord30 CHOL 161 mg/dL 06/10/2015 Lipid Ord30 HDL 49.0 mg/dl 06/10/2015 Lipid Ord30 TRIG 208 mg/dL 06/10/2015 Lipid Ord30 LDL 70 mg/dL 06/10/2015 Lipid Ord30 C/HDL 3.3 Ratio 06/10/2015 Pt Els8362 PT 25.0 seconds 04/09/2015 Pt Sne6894 INR 2.4 04/09/2015 Pt Zya7201 Low Intensity - 1.5-2.0 04/09/2015 Pt Uqu4999 Mod intensity - 2.0-3.0 04/09/2015 Pt Vxt9696 Hi intensity - 3.0-4.0 04/09/2015 Free T4 And648 FREE T4 1.05 ng/dL 01/22/2015 Pt Ory1204 PT 27.2 seconds 01/22/2015 Pt Tsa6673 INR 2.6 01/22/2015 Pt Pgy9143 Low Intensity - 1.5-2.0 01/22/2015 Pt Qxa6119 Mod intensity - 2.0-3.0 01/22/2015 Pt Ewi9463 Hi intensity - 3.0-4.0 01/22/2015 Cbc With [...] Differential Ord2 RDW 15.2 % 01/22/2015 B12 Wmy511 B12 402.00 pg/ml 01/22/2015 Tsh Ord6 hTSH II 0.65 uIU/mL 01/22/2015 Lipid Ord30 CHOL 166 mg/dL 01/22/2015 Lipid Ord30 HDL 48.0 mg/dl 01/22/2015 Lipid Ord30 TRIG 264 mg/dL 01/22/2015 Lipid Ord30 LDL 65 mg/dL 01/22/2015 Lipid Ord30 C/HDL 3.5 Ratio 01/22/2015 Comp Metabolic Yii144 NA 138 mEq/L 01/22/2015 Comp Metabolic Zec267 K 4.1 mEq/L 01/22/2015 Comp Metabolic Gpu270 CL 104 mEq/L 01/22/2015 Comp Metabolic Dkh564 CO2 29.0 mEq/L 01/22/2015 Comp Metabolic Liq547 AN ION GAP 9 01/22/2015 Comp Metabolic Uae807 GL UCOSE 106 mg/dL 01/22/2015 Comp Metabolic Cau400 Cr eat 0.9 mg/dL 01/22/2015 Comp Metabolic Ebg791 eG FR 63 ml/min/1.73m2 01/22 Comp Metabolic Muf386 BUN 21 mg/dL 01/22/2015 Comp Metabolic Aer127 B/ C Ratio 22.3 Ratio 01/22/2015 Comp Metabolic Sfe581 CA LCIUM 9.4 mg/dL 01/22/2015 Comp Metabolic Skt899 AL K PHOS 83 U/L 01/22/2015 Comp Metabolic Ylo299 T(SGOT) 23 U/L 01/22/2015 Comp Metabolic Jzl479 AL T(SGPT) 18 U/L 01/22/2015 Comp Metabolic Jdd021 BI LI T 0.8 mg/dL 01/22/2015 Comp Metabolic Jid149 AL BUMIN 4.2 g/dL 01/22/2015 Comp Metabolic Ala292 TP RO 7.3 g/dL 01/22/2015 Comp Metabolic Ylw636 GL OB 3.1 g/dL 01/22/2015 Comp Metabolic Qoi649 A/ G Ratio 1.4 Ratio 01/22/2015 Comp Metabolic Ukm448 Os mo 279 mOsmo 01/22/2015 Review of Systems System Result Effective Dates Constitutional recent illness 05/27/2017 Constitutional No anorexia [...] Date URINALYSIS NONAUTO W /O SCOPE CPT-4: 60042 03/05/2017 Vital Signs Date Vital 05/27/2017 Blood Pressure 1: 146/78 Code: 8480-6 BMI: 41.4 Code: 56764-4 Heart Rate 1: 85 bpm Height: 5'1" SpO2: 98% Weight: 219 lbs 02/24/2017 Blood Pressure 1: 138/66 Code: 8480-6 BMI: 41.4 Code: 24789-4 Heart Rate 1: 78 bpm Height: 5'1" SpO2: 97% Weight: 219 lbs 11/02/2016 Blood Pressure 1: 144/72 Code: 8480-6 BMI: 46.1 Code: 62860-0 Heart Rate 1: 78 bpm Height: 5'1" SpO2: 98% Weight: 244 lbs 09/30/2016 Blood Pressure 1: 130/76 Code: 8480-6 BMI: 45.0 Code: 37119-8 Heart Rate 1: 86 bpm Height: 5'1" SpO2: 98% Weight: 238 lbs 09/10/2016 Blood Pressure 1: 136/68 Code: 8480-6 BMI: 46.3 Code: 84485-0 Heart Rate 1: 83 bpm Height: 5'1" SpO2: 98% Weight: 245 lbs 08/20/2016 Blood Pressure 1: 142/78 Code: 8480-6 BMI: 45.3 Code: 22723-3 Heart Rate 1: 84 bpm Height: 5'1" SpO2: 99% Weight: 240 lbs 06/08/2016 Blood Pressure 1: 134/76 Code: 8480-6 BMI: 44.2 Code: 37967-5 Heart Rate 1: 86 bpm Height: 5'1" SpO2: 96% Weight: 234 lbs 04/02/2016 Blood Pressure 1: 142/70 Code: 8480-6 BMI: 44.6 Code: 69864-9 Heart Rate 1: 78 bpm Height: 5'1" SpO2: 97% Weight: 236 lbs 01/14/2016 Blood Pressure 1: 146/72 Code: 8480-6 BMI: 44.2 Code: 72665-3 Heart Rate 1: 86 bpm Height: 5'1" SpO2: 96% Weight: 234 lbs 10/02/2015 Blood Pressure 1: 158/76 Code: 8480-6 BMI: 44.2 Code: 40300-8 Heart Rate 1: 67 bpm Height: 5'1" SpO2: 97% Weight: 234 lbs 07/15/2015 Blood Pressure 1: 148/78 Code: 8480-6 Blood Pressure 1: 200/90 Code: 8480-6 BMI: 44.0 Code: 83748-9 Heart Rate 1: 89 bpm Height: 5'1" SpO2: 97% Weight: 233 lbs 06/10/2015 Blood Pressure 1: 140/82 Code: 8480-6 BMI: 44.0 Code: 10003-7 Heart Rate 1: 78 bpm Height: 5'1" SpO2: 93% Weight: 233 lbs 01/22/2015 Blood Pressure 1: 136/64 Code: 8480-6 Heart Rate 1: 82 bpm Height: SpO2: 98% Weight: 225 lbs Functional Status No Functional Status data History of Present Illness Symptom Name Status Resu lt Effective Date Notes hypertension Quality int ermittent 05/27/2017 None hypertension [...] Encounters Encounter Performer Loca tion Codes Date ( 91184 EST. P ATIENT, LEVEL IV Diagnosis: Essential (primary) hypertension[ICD10: I10] Diagnosis: Mixed hyperlipidemia[ICD10: E78.2] Diagnosis: Hypothyroidism, unspecified[ICD10: E03.9] Diagnosis: Impaired fasting glucose[ICD10: R73.01] Diagnosis: FDC (current) use of anticoagulants[ICD10: Z79.01] Edna Almanza MD, [facility] CPT-4: 56106 05/27/2017 [id number] EST. PATIENT, LEVEL III Diagnosis: Pain in right hip[ICD10: M25.551] Nata Almanza MD, [facility] CPT-4: 83893 02/24/2017 ([id number]) 36214 EST. P ATIENT, LEVEL IV Diagnosis: Essential (primary) hypertension[ICD10: I10] Diagnosis: Localized edema[ICD10: R60.0] Diagnosis: Pain in right hip[ICD10: M25.551] Sarai Almanza MD, [facility] CPT-4: 83069 11/02/2016 ([id number]) 97170 EST. P ATIENT, LEVEL IV Diagnosis: Essential (primary) hypertension[ICD10: I10] Diagnosis: Localized edema[ICD10: R60.0] Sarai Almanza MD, [facility] CPT-4: 02896 09/30/2016 [id number] EST. PATIENT, LEVEL IV Diagnosis: Localized edema[ICD10: R60.0] Diagnosis: Pain in joints of left hand[ICD10: M25.542] Diagnosis: Pain in joints of right hand[ICD10: M25.541] Nata Almanza MD, [facility] CPT-4: 80008 09/10/2016 [id number] EST. PATIENT, LEVEL IV Diagnosis: Localized edema[ICD10: R60.0] Diagnosis: Pain in joints of left hand[ICD10: M25.542] Diagnosis: Pain in joints of right hand[ICD10: M25.541] Diagnosis: Other fatigue[ICD10: R53.83] Nata Almanza MD, [facility] CPT-4: 15181 08/20/2016 [id number] EST. PATIENT, LEVEL IV Diagnosis: Essential (primary) hypertension[ICD10: I10] Diagnosis: Other jail (current) drug therapy[ICD10: Z79.899] Diagnosis: Tinnitus, bilateral[ICD10: H93.13] Nata Almanza MD, [facility] CPT-4: 27544 06/08/2016 [id number] EST. PATIENT, LEVEL IV Diagnosis: Other allergic rhinitis[ICD10: J30.89] Diagnosis: Acute laryngopharyngitis[ICD10: J06.0] Nata Almanza MD, [facility] CPT-4: 57013 04/02/2016 [id number] EST. PATIENT, LEVEL IV Diagnosis: Left upper quadrant pain[ICD10: R10.12] Nata Almanza MD, [facility] CPT-4: 21860 01/14/2016 [id number] EST. PATIENT, LEVEL IV Diagnosis: Pain in left shoulder[ICD10: M25.512] Diagnosis: Body mass index (BMI) 40.0-44.9, adult[ICD10: Z68.41] Nata Almanza MD, [facility] CPT-4: 66771 10/02/2015 [id number] EST. PATIENT, LEVEL IV Diagnosis: Pain in left leg[ICD10: M79.605] Diagnosis: Other joint terminal attack controller (current) drug therapy[ICD10: Z79.899] Nata Almanza MD, [facility] CPT-4: 85044 07/15/2015 ([id number]) 35700 EST. 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: Other joint terminal attack controller (current) drug therapy[ICD10: Z79.899] [facility] CPT-4: 30144 06/10/2015 ([id number]) OFFICE ALIZA Teran [facility] - LEVEL 4 Diagnosis: ESSENTIAL HYPERTENSION[ICD9: 401.9] Diagnosis: HYPOTHYROIDISM[ICD9: 244.9] Diagnosis: ENCNTR LONG-RX USE NEC[ICD9: V58.69] Diagnosis: HYPERLIPIDEMIA[ICD9: 272.4] Diagnosis: Vitamin B12 deficiency[ICD9: 266.2] Diagnosis: Status post gastric surgery[ICD9: V45.89] Diagnosis: Snoring[ICD9: 786.09] Sarai Almanza MD, [facility] CPT-4: 95886 01/22/2015 Plan of Care Planned Activity Notes [...] to medications. 05/27/2017 Appointment: Edna Douglas WPtel: [address] [place], [place] [phone] [place] (30 min) Complex 05/27/2017 Patient Education: [...] [place]. 02/24/2017 [facility]ment[facility] [phone] [facility] ([facility] Complex 02/24/2017 Patient Education: Patient [...] [place]. 11/02/2016 [facility]ment[phone] [facility] [place] (15 min) Moderate 11/02/2016 Patient [...] edema. 09/30/2016 Appointment: Sarai Almanza WPtel: [phone] [facility] (15 min) Moderate 09/30/2016 Patient [...] edema. 09/10/2016 Appointment: Nata Hsu WPtel: [facility]5 [facility] (30 min) Complex 09/10/2016 Patient Education: [...] edema. 08/20/2016 Appointment: Nata Hsu WPtel: [facility]3 [facility] (30 min) Complex 08/20/2016 Patient Education: Patient Medication Summary Completed 08/20/2016 Referral: Otf Lee [id number] Referral Initiated 07/02/2016 Visit Plan: Chronic Anticoagulant [...] 06/08/2016 Care Plan: Referral Order SNOMED-CT : [id number] Pending 06/08/2016 Visit Plan: URI - Pt [...] spray. 04/02/2016 Appointment: Nata Hsu WPtel: [facility]5 [facility] [place] (30 min) Complex [...] ER with acute pain 01/14/2016 Appointment: Edna oDuglas WPtel: [phone] [place] (30 min) Complex 01/14/2016 Patient Education: Patient Medication Summary Completed 01/14/2016 Patient Education: Obesity Completed 01/14/2016 Care Plan: BMI Above normal followup DAVID F-MGMT EDUC & TRAIN 1 PT Pending 10/24/2015 Care Plan[facility] 44612[facility] Pending 10/24/2015 Visit Plan: Left shoulder pain [...] check. 10/02/2015 Appointment: Edna Douglas WPtel: [phone] (15 min) Moderate 10/02/2015 Patient Education: Patient [...] Completed 06/10/2015 Appointment: Sarai Almanza WPtel: [facility]1 [facility] (15 min) Moderate 04/22/2015 Visit Plan: [...] fixation - planning occurring at [facility]. Snoring - Sleep apnea symptoms with difficulty [...] medications. 01/22/2015 Appointment: Sarai Almanza WPtel: [facility]8 [facility] [place] (S) New Patient 01/22/2015 Patient Education: Patient Medication Summary Completed 01/22/2015 Patient Education: Hypertension Completed 01/22/2015 Referral: Otf Lee [facility]66[facility] Referral Initiated Instructions Comment . Chronic [...] fixation - planning occurring at [facility]. Snoring - Sleep apnea symptoms with difficulty [...]
--- OUTSIDE RECORDS SUMMARY | 2020-01-17 00:06 | XMS REPORT | CCD ---
Author Author Kat Almanza Organization Sarai Almanza MD, [facility] Address [address] [place] [address] Phone Care Team Providers Care Observation Assistant Name Role Phone PP Unavailable CCM Unavailable Summary Purpose Interface Exchange Insurance Providers Payer name Policy type / Coverage type Covered republican ID Effective Begin Date Effective End Date WPS Medicare Part B Medicare Part B [id number] 2017 Unknown Family history Father Diagnosis Age At Onset Hyperlipidemia Unknown Heart Attack Unknown Mother Diagnosis Age At Onset Arthritis Unknown Social History Social History Element Codes Description Effective Dates Marital status Unknown M ramone Evans 09/30/2016 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 Number of children Unknown 3 01/22/[address]: 606910680 Never smoker 01/22/[address]: 602255576 Never drinks alcohol 01/22/2015 Allergies, Adverse Reactions, Alerts Allergies, Adverse Reactions, Alerts data not found Past Medical History Illness Codes Condition Status Onset Date Resolved Date Essential (primary) hypertension ICD-9: 401.9 ICD-10: I10 Active 06/07/2016 Unknown Hypothyroidism, unsp ecified ICD-9: 244.9 ICD-10: E03.9 Active 05/27/2017 Unknown Impaired fasting glu cose ICD-9: 790.21 ICD-10: R73.01 Active 05/27/2017 Unknown senior care (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 ICD-9: V58.61 [...] 780.79 ICD-10: R53.83 Active 08/20/2016 Unknown 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 [...] cose ICD-9: 790.21 ICD-10: R73.01 05/27/2017 Active senior care (current) use of anticoagulants ICD-9: V58.61 [...] 780.79 ICD-10: R53.83 08/20/2016 Active 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 [...] Start Date Stop Date Sta Fill Instructions omeprazole 20 mg cap chicho,delayed release RxNorm: 406583 TAKE 1 CAPSULE BY JAVON TH EVERY DAY 07/22/2017 07/16/2018 Active Generic For:PRILOSEC 20MG 07/22/2017 8: 58:20 AM Coumadin 4 mg tablet RxNorm: 538964 TAKE 1 TABLET BY MOUTH THREE TIMES PER [place] (WEDNESDAY, WEDNESDAY AND WEDNESDAY) 07/22/2017 02/16/2018 Active Generic For:COUMADIN 4MG 07/22/2017 8:58:26 AM Coumadin 4 mg tablet RxNorm: 855954 TAKE 1 TABLET BY MOUTH THREE TIMES PER [place] (WEDNESDAY, WEDNESDAY AND WEDNESDAY) 07/22/2017 02/16/2018 Active Generic For:COUMADIN 4MG 07/22/2017 8:58:26 AM sodium bicarbonate 6 50 mg tablet RxNorm: 186600 TAKE 2 TABLETS BY JAVON TH TWICE DAILY 06/22/2017 12/18/2017 Ac tive 06/19/2017 12:23:30 PM venlafaxine ER 75 mg capsule,extended release 24 hr RxNorm: 541793 TAKE 1 CAPSULE BY MOUTH ONCE DAILY 06/22/2017 06/16/2018 Active Generic For:*EFFEXOR XR 75MG 06/19/2017 12:23:45 PM Coumadin 5 mg tablet RxNorm: 759468 1 Tablet(s) PO UD 06/01/2017 No Stop Date Active Keflex 500 mg capsule RxNorm: 589382 1 Capsule(s) PO TID 05/27/2017 06/02/2017 Inactive Synthroid 137 mcg ta blet RxNorm: 442922 TAKE 1 TABLET BY MOUT H ONCE DAILY 05/24/2017 08/21/2017 Ac tive Generic For:SYNTHROID 137MCG TAB 2016 8:55:59 AM Carafate 1 gram tablet RxNorm: 060283 TAKE ONE TABLET BY MOUTH TWICE DAILY 05/24/2017 12/19/2017 Ac tive Generic For:CARAFATE 1GM 05/24/2017 8:5 5:54 AM spironolactone 25 mg tablet RxNorm: 395196 1 Tablet(s) PO daily 05/24/2017 05/18/2018 Active Detrol LA 4 mg capsu le,extended release RxNorm: 430632 1 Capsule(s) PO daily TAKE 1 CAPSULE BY MOUTH ONCE DAILY 05/10/2017 12/05/2017 Active Generic For:DETROL LA 4MG CAP 02/19/2017 2:36:00 PM Lasix 20 mg tablet RxNorm: 379358 TAKE ONE TABLET BY MOUTH DAILY 04/23/2017 08/20/2017 Ac tive Generic For:LASIX 20MG 04/23/2017 9:04: 01 AM allopurinol 300 mg t ablet RxNorm: 417068 TAKE 1 TABLET BY MOUT H ONCE DAILY. 04/23/2017 10/19/2017 Ac tive Generic For:ZYLOPRIM 300 MG TABLET 08/2016 9:03:57 AM Coumadin 4 mg tablet RxNorm: 466215 TAKE 1 TABLET BY MOUTH THREE TIMES PER [place] (WEDNESDAY, WEDNESDAY AND WEDNESDAY) 04/23/2017 07/21/2017 Inactive Generic For:COUMADIN 4MG 04/23/2017 9:04:05 AM potassium chloride 2 0 mEq/15 mL oral liquid RxNorm: 907342 Milliliter(s) 30 Milliliter(s) (40mEq) PO daily 03/24/2017 07/21/2017 Inactive Lovenox 30 mg/0.3 mL subcutaneous syringe RxNorm: 257900 0.3 Milliliter(s) SQ Q12H 03/22/2017 03/26/2017 In active Lovenox 30 mg/0.3 mL subcutaneous syringe RxNorm: 192975 0.3 Milliliter(s) SQ Q12H 03/19/2017 03/20/2017 In active Lovenox 30 mg/0.3 mL subcutaneous syringe RxNorm: 001404 0.3 Milliliter(s) SQ Q12H 03/16/2017 03/18/2017 In active clonazepam 0.5 mg ta blet RxNorm: 372303 1 Tablet(s) PO BID 03/02/2017 07/29/2017 Inactive Lovenox 30 mg/0.3 mL subcutaneous syringe RxNorm: 241509 1 injection SQ BID do NOT take the night time dose the day before surgery, or the morning dose the day of surgery 03/01/2017 03/07/2017 Inactive Lovenox 30 mg/0.3 mL subcutaneous syringe RxNorm: 159504 1 injection SQ BID 03/01/2017 02/28/2017 In active Detrol LA 4 mg capsu le,extended release RxNorm: 199881 TAKE 1 CAPSULE BY JAVON TH ONCE DAILY 02/19/2017 05/09/2017 Inactive Generic For:DETROL LA 4MG C AP 02/19/2017 2:36:00 PM hydrocodone 5 mg-humberto taminophen 325 mg tablet RxNorm: 855223 1-2 Tablet(s) PO Q6 P RN 02/04/2017 No Stop Date Active Zetia 10 mg tablet RxNorm: 735647 TAKE 1 TABLET BY MOUTH DAILY 01/25/2017 05/24/2017 Inactive 01/23/2017 9:03:48 AM omeprazole 20 mg cap chicho,delayed release RxNorm: 667652 TAKE 1 CAPSULE BY JAVON TH EVERY DAY 01/25/2017 07/21/2017 Inactive Generic For:PRILOSEC 20MG 01/23/2017 9: 03:45 AM Coumadin 4 mg tablet RxNorm: 304273 TAKE 1 TABLET BY MOUTH THREE TIMES PER [place] (WEDNESDAY, WEDNESDAY AND WEDNESDAY) 01/25/2017 04/22/2017 Inactive Generic For:COUMADIN 4MG 01/23/2017 9:03:51 AM sodium bicarbonate 6 50 mg tablet RxNorm: 228726 TAKE 2 TABLETS BY JAVON TH TWICE DAILY 12/24/2016 06/21/2017 In active 12/24/2016 9:09:27 AM Lasix 20 mg tablet RxNorm: 578927 1 Tablet(s) PO daily 12/24/2016 04/22/2017 Inactive Synthroid 137 mcg ta blet RxNorm: 565692 TAKE 1 TABLET BY MOUT H ONCE DAILY 11/24/2016 05/22/2017 In active Generic For:SYNTHROID 137MCG TAB 2016 9:04:37 AM Coumadin 4 mg tablet RxNorm: 088297 TAKE 1 TABLET BY MOUTH THREE TIMES PER [place] (WEDNESDAY, WEDNESDAY AND WEDNESDAY) 11/24/2016 01/22/2017 Inactive Generic For:COUMADIN 4MG 11/24/2016 9:04:41 AM hydrocodone 5 mg-humberto taminophen 325 mg tablet RxNorm: 602359 1-2 Tablet(s) PO Q6 P RN 11/17/2016 02/03/2017 In active Carafate 1 gram tablet RxNorm: 234984 TAKE ONE TABLET BY MOUTH TWICE DAILY 10/27/2016 05/23/2017 In active Generic For:CARAFATE 1GM 10/26/2016 8:3 9:42 AM allopurinol 300 mg t ablet RxNorm: 231494 Tablet(s) TAKE 1 TABL ET BY MOUTH ONCE DAILY. 10/26/2016 04/22/2017 Inactive Lipitor 40 mg tablet RxNorm: 332738 1 Tablet(s) PO daily 09/25/2016 09/19/2017 Active Coumadin 4 mg tablet RxNorm: 172130 TAKE 1 TABLET BY MOUTH THREE TIMES PER [place] (WEDNESDAY, WEDNESDAY AND WEDNESDAY) 09/25/2016 11/23/2016 Inactive Generic For:COUMADIN 4MG 09/25/2016 8:55:58 AM Zetia 10 mg tablet RxNorm: 430372 1 Tablet(s) PO daily 09/25/2016 01/22/2017 Inactive gave 1 month of samples clonazepam 0.5 mg ta blet RxNorm: 508749 1 Tablet(s) PO BID 09/21/2016 02/16/2017 Inactive Lasix 20 mg tablet RxNorm: 039993 1 Tablet(s) PO daily 09/15/2016 12/23/2016 Inactive potassium chloride 2 0 mEq/15 mL oral liquid RxNorm: 451264 Milliliter(s) 30 Milliliter(s) (40mEq) PO daily 09/15/2016 01/12/2017 Inactive Lasix 20 mg tablet RxNorm: 862307 2 Tablet(s) PO daily 09/10/2016 09/12/2016 Inactive Lasix 20 mg tablet RxNorm: 408137 1 Tablet(s) PO daily 08/28/2016 08/30/2016 Inactive Lasix 20 mg tablet RxNorm: 798288 1 Tablet(s) PO daily 08/20/2016 08/22/2016 Inactive Detrol LA 4 mg capsu le,extended release RxNorm: 368898 TAKE 1 CAPSULE BY JAVON TH ONCE DAILY 07/27/2016 02/18/2017 Inactive Generic For:DETROL LA 4MG C AP 07/27/2016 9:08:27 AM Coumadin 4 mg tablet RxNorm: 376535 1 Tablet(s) PO 3 x week wed [facility] and sun 07/27/2016 09/24/2016 In active omeprazole 20 mg cap chicho,delayed release RxNorm: 744039 Capsule(s) PO TAKE 1 CAPSULE BY MOUTH ONCE DAILY 07/27/2016 01/22/2017 Inactive venlafaxine ER 75 mg capsule,extended release 24 hr RxNorm: 953830 1 Capsule(s) PO daily 06/29/2016 06/21/2017 Inactive sodium bicarbonate 6 50 mg tablet RxNorm: 039552 TAKE 2 TABLETS BY AJVON TH TWICE DAILY 06/29/2016 12/23/2016 In active 06/27/2016 9:05:39 AM Coumadin 4 mg tablet RxNorm: 812066 1 Tablet(s) PO 3 x week tue thur and sun 06/09/2016 06/08/2016 In active Coumadin 4 mg tablet RxNorm: 691924 1 Tablet(s) PO 3 x week tue thur and sun 06/09/2016 07/26/2016 In active Zetia 10 mg tablet RxNorm: 095761 1 Tablet(s) PO daily 06/09/2016 06/08/2016 Inactive gave 1 month of samples Zetia 10 mg tablet RxNorm: 384810 1 Tablet(s) PO daily 06/09/2016 09/24/2016 Inactive gave 1 month of samples Effexor 75 mg tablet RxNorm: 551296 1 Tablet(s) PO daily 06/08/2016 06/28/2016 Inactive spironolactone 25 mg tablet RxNorm: 839934 1 Tablet(s) PO daily 06/08/2016 05/23/2017 Inactive Synthroid 137 mcg ta blet RxNorm: 226747 1 Tablet(s) PO daily 05/07/2016 11/02/2016 Inactive allopurinol 300 mg t ablet RxNorm: 541123 Tablet(s) TAKE 1 TABL ET BY MOUTH ONCE DAILY. 04/28/2016 10/24/2016 Inactive clonazepam 0.5 mg ta blet RxNorm: 671644 1 Tablet(s) PO BID 04/20/2016 09/15/2016 Inactive Flonase Allergy Reli ef 50 mcg/actuation nasal spray,suspension RxNorm: 9016158 1 [place] NASAL BID 04/02/2016 No Stop Date Active Zithromax Z-Thomas 250 mg tablet RxNorm: 178470 Tablet(s) PO 04/02/2016 08/27/2016 Inactive cetirizine 10 mg tablet RxNorm: 5098238 1 Tablet(s) PO daily 04/02/2016 05/01/2016 Inactive Carafate 1 gram tablet RxNorm: 651084 Tablet(s) TAKE 1 TABLET TWICE A DAY FOR 30 DAYS 03/30/2016 10/25/2016 Inactive Generic For:CARAFATE 1GM 02/08/2015 12:3 6:39 PM Plavix 75 mg tablet RxNorm: 407857 1 Tablet(s) PO daily 03/11/2016 09/06/2016 Inactive sodium bicarbonate 6 50 mg tablet RxNorm: 329801 Tablet(s) 2 Tablet(s) PO BID 02/28/2016 06/26/2016 In active omeprazole 20 mg cap chicho,delayed release RxNorm: 523937 Capsule(s) PO TAKE 1 CAPSULE BY MOUTH ONCE DAILY 01/31/2016 07/26/2016 Inactive Fish Oil 1,000 mg ca psule RxNorm: 1 Capsule(s) PO BID 01/14/2016 No Stop Date Active Synthroid 137 mcg ta blet RxNorm: 869163 1 Tablet(s) PO daily 01/14/2016 05/06/2016 Inactive Detrol LA 4 mg capsu le,extended release RxNorm: 698915 TAKE 1 CAPSULE BY JAVON TH ONCE DAILY 12/30/2015 07/26/2016 Inactive Generic For:DETROL LA 4MG C AP 12/30/2015 9:11:01 AM potassium chloride 2 0 mEq/15 mL oral liquid RxNorm: 188443 Milliliter(s) 30 Milliliter(s) (40mEq) PO daily 12/02/2015 03/30/2016 Inactive sodium bicarbonate 6 50 mg tablet RxNorm: 321461 Tablet(s) 2 Tablet(s) PO BID 10/31/2015 02/27/2016 In active Lipitor 40 mg tablet RxNorm: 922557 1 Tablet(s) PO daily 10/09/2015 09/24/2016 Inactive sodium bicarbonate 6 50 mg tablet RxNorm: 405433 2 Tablet(s) PO BID 10/01/2015 10/30/2015 Inactive allopurinol 300 mg t ablet RxNorm: 906660 TAKE 1 TABLET BY MOUT H ONCE DAILY. 10/01/2015 04/27/2016 In active Generic For:ZYLOPRIM 300 MG TABLET 09/19 9:21:15 AM clonazepam 0.5 mg ta blet RxNorm: 777941 1 Tablet(s) PO BID 09/30/2015 04/19/2016 Inactive Coumadin 5 mg tablet RxNorm: 481547 1 Tablet(s) PO daily 09/27/2015 05/31/2017 Inactive Generic For:COUMADIN 5MG TAB N O T I C E PRESCRIPTION PREVIOUSLY AUTHORIZED BY DOCTOR:BOBBY ZULETA Synthroid 125 mcg ta blet RxNorm: 396137 1 Tablet(s) PO daily 09/27/2015 09/26/2015 Inactive Synthroid 125 mcg ta blet RxNorm: 083415 1 Tablet(s) PO daily 09/27/2015 01/13/2016 Inactive Carafate 1 gram tablet RxNorm: 683969 Tablet(s) TAKE 1 TABLET TWICE A DAY FOR 30 DAYS 09/02/2015 03/29/2016 Inactive Generic For:CARAFATE 1GM 02/08/2015 12:3 6:39 PM sodium bicarbonate 6 50 mg tablet RxNorm: 165888 2 Tablet(s) PO BID 09/02/2015 09/30/2015 Inactive Prilosec 20 mg capsu le,delayed release RxNorm: 521078 TAKE 1 CAPSULE BY JAVON TH ONCE DAILY 08/02/2015 01/28/2016 Inactive Generic For:PRILOSEC 20MG 08/02/2015 10:03:09 AM N O T I C E PRESCRIPTION PREVIOUSLY AUTHORIZED BY DOCTOR:BOBBY ZULETA Zyrtec 10 mg capsule RxNorm: 2609465 1 Capsule(s) PO daily 07/15/2015 08/13/2015 Inactive Keflex 500 mg capsule RxNorm: 099014 1 Capsule(s) PO TID 07/15/2015 07/21/2015 Inactive cetirizine 10 mg cap chicho RxNorm: 3576254 1 Capsule(s) PO daily 07/15/2015 08/13/2015 Inactive hydrocodone 5 mg-humberto taminophen 325 mg tablet RxNorm: 799717 1-2 Tablet(s) PO Q6 P RN 06/10/2015 11/16/2016 In active sodium bicarbonate 6 50 mg tablet RxNorm: 174777 2 Tablet(s) PO BID 06/03/2015 08/31/2015 Inactive Detrol LA 4 mg capsu le,extended release RxNorm: 269775 TAKE 1 CAPSULE BY JAVON TH ONCE DAILY 06/03/2015 12/29/2015 Inactive Generic For:DETROL LA 4MG C AP N O T I C E PRESCRIPTION PREVIOUSLY AUTHORIZED BY DOCTOR:BOBBY ZULETA atenolol 50 mg tablet RxNorm: 936608 1 Tablet(s) PO daily TAKE 1 TABLET BY MO UTH DAILY 05/07/2015 04/30/2016 Inactive Generic For:TENORMIN 50MG 05/04/2015 9:07:22 AM spironolactone 25 mg tablet RxNorm: 095905 1 Tablet(s) PO daily 05/06/2015 06/07/2016 Inactive venlafaxine ER 75 mg capsule,extended release 24 hr RxNorm: 591557 1 Capsule(s) PO daily 05/04/2015 06/28/2016 Inactive atenolol 50 mg tablet RxNorm: 197110 TAKE 1 TABLET BY MOUTH DAILY 05/04/2015 05/06/2015 Inactive Generic For:TENORMIN 50MG 05/04/2015 9: 07:22 AM Synthroid 150 mcg ta blet RxNorm: 453982 TAKE 1 TABLET BY MOUT H ONCE DAILY. 04/05/2015 09/26/2015 In active Generic For:SYNTHROID 150MCG TAB 2014 4:45:40 PM N O T I C E PRESCRIPTION PREVIOUSLY AUTHORIZED BY DOCTOR:BOBBY ZULETA Effexor 75 mg tablet RxNorm: 928473 1 Tablet(s) PO daily 04/05/2015 07/03/2015 Inactive Coumadin 5 mg tablet RxNorm: 040433 TAKE 1 AND 1/2 TABLETS BY MOUTH ONCE MYRANDA LY 04/04/2015 09/26/2015 In active Generic For:COUMADIN 5MG TAB N O T I C E PRESCRIPTION PREVIOUSLY AUTHORIZED BY DOCTOR:BOBBY ZULETA clonazepam 0.5 mg ta blet RxNorm: 127843 1 Tablet(s) PO BID 03/13/2015 11/05/2015 Inactive sodium bicarbonate 6 50 mg tablet RxNorm: 377338 2 Tablet(s) PO BID 03/08/2015 06/02/2015 Inactive allopurinol 300 mg t ablet RxNorm: 220593 TAKE 1 TABLET BY MOUT H ONCE DAILY. 03/05/2015 09/30/2015 In active N O T I C E PRESCRIPTION PREVIOUSLY A UTHORIZED BY DOCTOR:BOBBY ZULETA Plavix 75 mg tablet RxNorm: 453174 1 Tablet(s) PO daily 02/12/2015 09/09/2015 Inactive clonazepam 0.5 mg ta blet RxNorm: 461120 1 Tablet(s) PO BID 02/11/2015 03/11/2015 Inactive Carafate 1 gram tablet RxNorm: 666800 TAKE 1 TABLET TWICE A DAY FOR 30 DAYS 02/08/2015 02/07/2015 In active Generic For:CARAFATE 1GM 02/08/2015 12:3 6:39 PM Carafate 1 gram tablet RxNorm: 631064 Tablet(s) TAKE 1 TABLET TWICE A DAY FOR 30 DAYS 02/08/2015 09/01/2015 Inactive Generic For:CARAFATE 1GM 02/08/2015 12:3 6:39 PM potassium chloride 2 0 mEq/15 mL oral liquid RxNorm: 820771 30 Milliliter(s) (40m Eq) PO daily 02/05/2015 12/01/2015 Inactive atenolol 50 mg tablet RxNorm: 247235 1 Tablet(s) PO daily 02/04/2015 05/03/2015 Inactive [SAVINGS FOR NON-COVERED DRUGS -- BIN:00 3585, PCN: [email or web address], Group: XXXXX, ID# XXXXXXX, Questions: . THIS IS NOT INSURANCE.] potassium chloride 2 0 mEq/15 mL oral liquid RxNorm: 907527 30 Milliliter(s) (40m Eq) PO daily 01/08/2015 02/04/2015 Inactive potassium chloride 2 0 mEq/15 mL oral liquid RxNorm: 709832 30 Milliliter(s) (40m Eq) PO daily 12/07/2014 01/07/2015 Inactive atenolol 50 mg tablet RxNorm: 846722 1 Tablet(s) PO daily 11/09/2014 11/08/2014 Inactive atenolol 50 mg tablet RxNorm: 580419 1 Tablet(s) PO daily 11/09/2014 02/03/2015 Inactive [SAVINGS FOR NON-COVERED DRUGS -- BIN:00 3585, PCN: [id number], Group: XXXXX, ID# XXXXXXX, Questions: . THIS IS NOT INSURANCE.] cranberry 1,000 mg c apsule RxNorm: 985407 1 Capsule(s) PO daily No Start Date Active Voltaren 1 % topical gel RxNorm: 106187 TOP No St art Date Active atenolol 50 mg tablet RxNorm: 215627 1 Tablet(s) PO daily No Start Date Active verapamil ER (HS) 24 0 mg tablet,extended release 24 hr RxNorm: 446413 1 Tablet(s) PO daily No Start Date Active aspirin 81 mg tablet RxNorm: 029305 1 Tablet(s) PO daily No Start Date Active Zofran 4 mg tablet RxNorm: 596681 1 Tablet(s) PO PRN No Start Date Active B12 1000 mcg RxNorm: 1 Tablet(s) PO daily No Start Date Active Lipitor 40 mg tablet RxNorm: 161421 1 Tablet(s) PO daily No Start Date 10/08/2015 Inactive magnesium oxide 400 mg capsule RxNorm: 406438 2 Capsule(s) PO BID No Start Date Active Synthroid 150 mcg ta blet RxNorm: 695292 1 Tablet(s) PO daily No Start Date 04/04/2015 Inactive Coumadin 5 mg tablet RxNorm: 682887 1 Tablet(s) PO daily No Start Date 04/03/2015 Inactive allopurinol 300 mg t ablet RxNorm: 730682 1 Tablet(s) PO daily No Start Date 03/04/2015 Inactive Prilosec 20 mg capsu le,delayed release RxNorm: 468818 1 Capsule(s) PO PRN No Start Date 08/01/2015 Inactive potassium chloride 2 0 mEq/15 mL oral liquid RxNorm: 264730 30 Milliliter(s) (40m Eq) PO daily No Start Date 12/06/2014 Inactive Effexor 75 mg tablet RxNorm: 878597 1 Tablet(s) PO daily No Start Date 04/04/2015 Inactive Carafate 1 gram tablet RxNorm: 532294 1 Tablet(s) PO BID No Start Date 02/07/2015 Inactive clonazepam 0.5 mg ta blet RxNorm: 770497 1 Tablet(s) PO BID No Start Date 02/10/2015 Inactive Plavix 75 mg tablet RxNorm: 336814 1 Tablet(s) PO daily No Start Date 02/11/2015 Inactive sodium bicarbonate 6 50 mg tablet RxNorm: 996242 2 Tablet(s) PO BID No Start Date 09/01/2015 Inactive Lovenox 30 mg/0.3 mL subcutaneous syringe RxNorm: 940107 0.3 Milliliter(s) SQ Q12H No Start Date 03/15/2017 Inactive Fish Oil 1,000 mg ca psule RxNorm: 1 Capsule(s) PO daily No Start Date 01/13/2016 Inactive Detrol LA 4 mg capsu le,extended release RxNorm: 480517 1 Capsule(s) PO daily No Start Date 06/02/2015 Inactive Medication Administered No Medication Administered data Immunizations No Immunization data Assessments Condition Codes Effectiv e Dates Impaired fasting glucose ICD-10: R73 .01 ICD-9: 790.21 05/27/2017 Mixed hyperlipidemia ICD-10: E78.2 ICD-9: 272.4 05/27/2017 Hypothyroidism, unspecified ICD-10: E03.9 ICD-9: 244.9 05/27/2017 Essential (primary) hypertension ICD -10: I10 ICD-9: 401.9 05/27/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 ICD-10: [...] Tsh Ord6 hTSH II 2.08 uIU/mL 05/27/2017 Magnesium Ord90 Mag 1.4 mg/dL 05/27/2017 Comp Metabolic Who274 NA 138 mEq/L 05/27/2017 Comp Metabolic Jlh477 K 4.1 mEq/L 05/27/2017 Comp Metabolic Hyi306 CL 101 mEq/L 05/27/2017 Comp Metabolic Cii031 CO2 31.0 mEq/L 05/27/2017 Comp Metabolic Rtf199 AN ION GAP 10 05/27/2017 Comp Metabolic Mhd457 GL UCOSE 117 mg/dL 05/27/2017 Comp Metabolic Hlm983 Cr eat 0.9 mg/dL 05/27/2017 Comp Metabolic Fji922 eG FR 62 ml/min/1.73m2 05/27 Comp Metabolic Tsd270 BUN 25 mg/dL 05/27/2017 Comp Metabolic Hkk748 B/ C Ratio 26.6 Ratio 05/27/2017 Comp Metabolic Ins537 CA LCIUM 9.5 mg/dL 05/27/2017 Comp Metabolic Nyk305 AL K PHOS 73 U/L 05/27/2017 Comp Metabolic Qcd025 T(SGOT) 18 U/L 05/27/2017 Comp Metabolic Ajl574 AL T(SGPT) 12 U/L 05/27/2017 Comp Metabolic Qar693 BI LI T 0.5 mg/dL 05/27/2017 Comp Metabolic Ghx212 AL BUMIN 4.1 g/dL 05/27/2017 Comp Metabolic Rav549 TP RO 7.1 g/dL 05/27/2017 Comp Metabolic Opg135 GL OB 3.0 g/dL 05/27/2017 Comp Metabolic Zql286 A/ G Ratio 1.3 Ratio 05/27/2017 Comp Metabolic Scg877 Os mo 281 mOsmo 05/27/2017 Free T4 Yin209 FREE T4 0.91 ng/dL 05/27/2017 Pt Vpz6659 PT 28.2 seconds 05/27/2017 Pt Ckk6809 INR 2.6 05/27/2017 Pt Ken8315 Low Intensity - 1.5-2.0 05/27/2017 Pt Ctk3194 Mod intensity - 2.0-3.0 05/27/2017 Pt Irn6995 Hi intensity - 3.0-4.0 05/27/2017 Lipid Ord30 CHOL 167 mg/dL 05/27/2017 Lipid Ord30 HDL 49.0 mg/dl 05/27/2017 Lipid Ord30 TRIG 347 mg/dL 05/27/2017 Lipid Ord30 LDL 49 mg/dL 05/27/2017 Lipid Ord30 C/HDL 3.4 Ratio 05/27/2017 Cbc With Differential Ord2 WBC 7.53 [...] 29.3 pg 05/27/2017 Cbc With Differential Ord2 [place]% 8.1 % 05/27/2017 Cbc With Differential Ord2 [...] 1.11 K/ul 05/27/2017 Cbc With Differential Ord2 [place] ABS# 0.6 K/ul 05/27/2017 Cbc With Differential Ord2 Eos ABS# 0.2 K/ul 05/27/2017 Cbc With Differential Ord2 Baso ABS# 0.1 K/ul 05/27/2017 %Hba1C Lwr798 % HbA1c 60337-5 5.9 % 05/27/2017 %Hba1C Pov635 Gluc Ave 123 mg/dL 05/27/2017 Pt Jtd5541 PT 29.2 seconds 04/16/2017 Pt Nch4125 INR 2.7 04/16/2017 Pt Bkt0000 Low Intensity - 1.5-2.0 04/16/2017 Pt Ofq4885 Mod intensity - 2.0-3.0 04/16/2017 Pt Cmt3869 Hi intensity - 3.0-4.0 04/16/2017 Pt Juj0193 PT 30.7 seconds 03/31/2017 Pt Cyc0548 INR 2.9 03/31/2017 Pt Cim9789 Low Intensity - 1.5-2.0 03/31/2017 Pt Bwq8964 Mod intensity - 2.0-3.0 03/31/2017 Pt Ogj8933 Hi intensity - 3.0-4.0 03/31/2017 Pt Cyz7154 PT 21.3 seconds 03/26/2017 Pt Ykp9212 INR 1.9 03/26/2017 Pt Wci4198 Low Intensity - 1.5-2.0 03/26/2017 Pt Mzj8866 Mod intensity - 2.0-3.0 03/26/2017 Pt Bjl8748 Hi intensity - 3.0-4.0 03/26/2017 Pt Yle1777 PT 19.8 seconds 03/22/2017 Pt Aki8525 INR 1.7 03/22/2017 Pt Hbf3338 Low Intensity - 1.5-2.0 03/22/2017 Pt Bdr1439 Mod intensity - 2.0-3.0 03/22/2017 Pt Fpr6977 Hi intensity - 3.0-4.0 03/22/2017 Pt Kjj9861 PT 15.6 seconds 03/19/2017 Pt Sdt7930 INR 1.3 03/19/2017 Pt Yqd9519 Low Intensity - 1.5-2.0 03/19/2017 Pt Cdi5230 Mod intensity - 2.0-3.0 03/19/2017 Pt Ibq5405 Hi intensity - 3.0-4.0 03/19/2017 Pt Ssg5620 PT 13.7 seconds 03/15/2017 Pt Puc7016 INR 1.1 03/15/2017 Pt Xhk4147 Low Intensity - 1.5-2.0 03/15/2017 Pt Cre9801 Mod intensity - 2.0-3.0 03/15/2017 Pt Tiv9801 Hi intensity - 3.0-4.0 03/15/2017 Pt Rrz9051 PT 25.8 seconds 01/28/2017 Pt Nnr7297 INR 2.4 01/28/2017 Pt Jth8294 Low Intensity - 1.5-2.0 01/28/2017 Pt Jrx7414 Mod intensity - 2.0-3.0 01/28/2017 Pt Ufe6707 Hi intensity - 3.0-4.0 01/28/2017 %Hba1C Xah062 % HbA1c 08227-0 6.4 % 10/23/2016 %Hba1C Wna596 Gluc Ave 137 mg/dL 10/23/2016 Comp Metabolic Vtu838 NA 138 mEq/L 10/23/2016 Comp Metabolic Vni986 K 3.4 mEq/L 10/23/2016 Comp Metabolic Yvs299 CL 100 mEq/L 10/23/2016 Comp Metabolic Kwx694 CO2 30.0 mEq/L 10/23/2016 Comp Metabolic Xtm520 AN ION GAP 11 10/23/2016 Comp Metabolic Jxp277 GL UCOSE 139 mg/dL 10/23/2016 Comp Metabolic Oxd615 Cr eat 0.9 mg/dL 10/23/2016 Comp Metabolic Wzn664 eG FR 62 ml/min/1.73m2 10/23 Comp Metabolic Udi319 BUN 22 mg/dL 10/23/2016 Comp Metabolic Aul665 B/ C Ratio 23.4 Ratio 10/23/2016 Comp Metabolic Vfc299 CA LCIUM 8.7 mg/dL 10/23/2016 Comp Metabolic Mmv207 AL K PHOS 66 U/L 10/23/2016 Comp Metabolic Tkv691 T(SGOT) 20 U/L 10/23/2016 Comp Metabolic Zpt250 AL T(SGPT) 10 U/L 10/23/2016 Comp Metabolic Xgi547 BI LI T 0.5 mg/dL 10/23/2016 Comp Metabolic Fjz577 AL BUMIN 3.5 g/dL 10/23/2016 Comp Metabolic Scd098 TP RO 6.3 g/dL 10/23/2016 Comp Metabolic Jbh507 GL OB 2.8 g/dL 10/23/2016 Comp Metabolic Ils760 A/ G Ratio 1.3 Ratio 10/23/2016 Comp Metabolic Duc959 Os mo 281 mOsmo 10/23/2016 Pt Uqk8622 PT 26.8 seconds 10/23/2016 Pt Mul1134 INR 2.7 10/23/2016 Pt Dmg1264 Low Intensity - 1.5-2.0 10/23/2016 Pt Ynp1884 Mod intensity - 2.0-3.0 10/23/2016 Pt Jid3739 Hi intensity - 3.0-4.0 10/23/2016 Pt Ekz6685 PT 28.3 seconds 09/25/2016 Pt Erx4486 INR 2.8 09/25/2016 Pt Mkx5996 Low Intensity - 1.5-2.0 09/25/2016 Pt Gil3110 Mod intensity - 2.0-3.0 09/25/2016 Pt Ojt8994 Hi intensity - 3.0-4.0 09/25/2016 Metabolic Ord15 [...] Ord15 CALCIUM 8.8 mg/dL 09/25/2016 Comp Metabolic Mqj746 NA 138 mEq/L 09/11/2016 Comp Metabolic Ezi850 K 4.4 mEq/L 09/11/2016 Comp Metabolic Ytb041 CL 103 mEq/L 09/11/2016 Comp Metabolic Csv923 CO2 31.0 mEq/L 09/11/2016 Comp Metabolic Rsx086 AN ION GAP 8 09/11/2016 Comp Metabolic Tif857 GL UCOSE 146 mg/dL 09/11/2016 Comp Metabolic Tgh340 Cr eat 1.0 mg/dL 09/11/2016 Comp Metabolic Jfw637 eG FR 60 ml/min/1.73m2 09/11 Comp Metabolic Uhy300 BUN 16 mg/dL 09/11/2016 Comp Metabolic Pef520 B/ C Ratio 16.5 Ratio 09/11/2016 Comp Metabolic Nbu551 CA LCIUM 8.7 mg/dL 09/11/2016 Comp Metabolic Cyu534 AL K PHOS 52 U/L 09/11/2016 Comp Metabolic Vmt634 T(SGOT) 19 U/L 09/11/2016 Comp Metabolic Zeo796 AL T(SGPT) 11 U/L 09/11/2016 Comp Metabolic Fpi517 BI LI T 0.7 mg/dL 09/11/2016 Comp Metabolic Rkd737 AL BUMIN 3.3 g/dL 09/11/2016 Comp Metabolic Zyc687 TP RO 5.8 g/dL 09/11/2016 Comp Metabolic Pxl278 GL OB 2.5 g/dL 09/11/2016 Comp Metabolic Aip405 A/ G Ratio 1.3 Ratio 09/11/2016 Comp Metabolic Eaz426 Os mo 280 mOsmo 09/11/2016 Pt Vtn0284 PT 30.6 seconds 09/11/2016 Pt Ods2553 INR 3.2 09/11/2016 Pt Pxw7532 Low Intensity - 1.5-2.0 09/11/2016 Pt Avx2117 Mod intensity - 2.0-3.0 09/11/2016 Pt Esx2690 Hi intensity - 3.0-4.0 09/11/2016 C-Reactive Protein Qnt Crqnt CRP 0.1 mg/dl 08/21/2016 Comp Metabolic Olr792 NA 139 mEq/L 08/21/2016 Comp Metabolic Yzt441 K 4.1 mEq/L 08/21/2016 Comp Metabolic Abg243 CL 102 mEq/L 08/21/2016 Comp Metabolic Sdo968 CO2 30.0 mEq/L 08/21/2016 Comp Metabolic Jub719 AN ION GAP 11 08/21/2016 Comp Metabolic Jba669 GL UCOSE 148 mg/dL 08/21/2016 Comp Metabolic Fap668 Cr eat 1.0 mg/dL 08/21/2016 Comp Metabolic Ybg125 eG FR 55 ml/min/1.73m2 08/21 Comp Metabolic Xuv624 BUN 21 mg/dL 08/21/2016 Comp Metabolic Zpg520 B/ C Ratio 20.2 Ratio 08/21/2016 Comp Metabolic Yrl324 CA LCIUM 9.4 mg/dL 08/21/2016 Comp Metabolic Jdx129 AL K PHOS 63 U/L 08/21/2016 Comp Metabolic Mer047 T(SGOT) 23 U/L 08/21/2016 Comp Metabolic Gkw001 AL T(SGPT) 16 U/L 08/21/2016 Comp Metabolic Ikc623 BI LI T 0.6 mg/dL 08/21/2016 Comp Metabolic Tqt519 AL BUMIN 3.9 g/dL 08/21/2016 Comp Metabolic Gad524 TP RO 6.8 g/dL 08/21/2016 Comp Metabolic Drk950 GL OB 2.9 g/dL 08/21/2016 Comp Metabolic Pxh589 A/ G Ratio 1.4 Ratio 08/21/2016 Comp Metabolic Emd614 Os mo 283 mOsmo 08/21/2016 Sed Rate Ord21 ESR 16 mm/hr 08/21/2016 Magnesium Ord90 Mag 1.9 mg/dL 08/21/2016 Pt Cpl4377 PT 27.2 seconds 08/21/2016 Pt Gyj7030 INR 2.7 08/21/2016 Pt Sgv9084 Low Intensity - 1.5-2.0 08/21/2016 Pt Ksy4434 Mod intensity - 2.0-3.0 08/21/2016 Pt Xiq1479 Hi intensity - 3.0-4.0 08/21/2016 Pt Ghe3782 PT 25.9 seconds 06/17/2016 Pt Gmu1337 INR 2.5 06/17/2016 Pt Sud9327 Low Intensity - 1.5-2.0 06/17/2016 Pt Rpd1748 Mod intensity - 2.0-3.0 06/17/2016 Pt Tyk7569 Hi intensity - 3.0-4.0 06/17/2016 Comp Metabolic Knc420 NA 138 mEq/L 06/08/2016 Comp Metabolic Gfl840 K 3.9 mEq/L 06/08/2016 Comp Metabolic Ust756 CL 105 mEq/L 06/08/2016 Comp Metabolic Nim113 CO2 27.0 mEq/L 06/08/2016 Comp Metabolic Jsn525 AN ION GAP 10 06/08/2016 Comp Metabolic Dtf730 GL UCOSE 127 mg/dL 06/08/2016 Comp Metabolic Agt515 Cr eat 1.0 mg/dL 06/08/2016 Comp Metabolic Kkb018 eG FR 59 ml/min/1.73m2 06/08 Comp Metabolic Vtn907 BUN 19 mg/dL 06/08/2016 Comp Metabolic Ywr342 B/ C Ratio 19.4 Ratio 06/08/2016 Comp Metabolic Tgq966 CA LCIUM 9.2 mg/dL 06/08/2016 Comp Metabolic Xgd811 AL K PHOS 77 U/L 06/08/2016 Comp Metabolic Lkh960 T(SGOT) 19 U/L 06/08/2016 Comp Metabolic Sms947 AL T(SGPT) 13 U/L 06/08/2016 Comp Metabolic Dxv995 BI LI T 0.5 mg/dL 06/08/2016 Comp Metabolic Wdn600 AL BUMIN 3.8 g/dL 06/08/2016 Comp Metabolic Vtv263 TP RO 6.6 g/dL 06/08/2016 Comp Metabolic Vex738 GL OB 2.8 g/dL 06/08/2016 Comp Metabolic Txm234 A/ G Ratio 1.4 Ratio 06/08/2016 Comp Metabolic Yhg843 Os mo 280 mOsmo 06/08/2016 Tsh Ord6 hTSH II 2.13 uIU/mL [...] 80.8 fl 06/08/2016 Cbc With Differential Ord2 [place]% 12.0 % 06/08/2016 Cbc With Differential Ord2 [...] 1.40 K/ul 06/08/2016 Cbc With Differential Ord2 [place] ABS# 0.7 K/ul 06/08/2016 Cbc With Differential Ord2 Eos ABS# 0.3 K/ul 06/08/2016 Cbc With Differential Ord2 Baso ABS# 0.1 K/ul 06/08/2016 %Hba1C Bvp352 % HbA1c 77836-8 6.2 % 06/08/2016 %Hba1C Whc555 Gluc Ave 131 mg/dL 06/08/2016 Free T4 Tsx560 FREE T4 0.79 ng/dL 06/08/2016 Lipid Ord30 CHOL 149 mg/dL 06/08/2016 Lipid Ord30 HDL 46.0 mg/dl 06/08/2016 Lipid Ord30 TRIG 279 mg/dL 06/08/2016 Lipid Ord30 LDL 47 mg/dL 06/08/2016 Lipid Ord30 C/HDL 3.2 Ratio 06/08/2016 Pt Lgt2816 PT 36.1 seconds 06/08/2016 Pt Nqn7708 INR 3.9 06/08/2016 Pt Xgm9907 Low Intensity - 1.5-2.0 06/08/2016 Pt Dyw4702 Mod intensity - 2.0-3.0 06/08/2016 Pt Msq7416 Hi intensity - 3.0-4.0 06/08/2016 Pt Lhd4129 PT 30.9 seconds 02/12/2016 Pt Ehc8309 INR 3.2 02/12/2016 Pt Fdc5565 Low Intensity - 1.5-2.0 02/12/2016 Pt Cqm2703 Mod intensity - 2.0-3.0 02/12/2016 Pt Koq1617 Hi intensity - 3.0-4.0 02/12/2016 %Hba1C Sld101 % HbA1c 13794-6 6.4 % 09/27/2015 %Hba1C Frd976 Gluc Ave 137 mg/dL 09/27/2015 Free T4 Inp264 FREE T4 1.24 ng/dL 09/27/2015 Pt Mel9697 PT 26.2 seconds 09/27/2015 Pt Xsz8773 INR 2.5 09/27/2015 Pt Pyt2292 Low Intensity - 1.5-2.0 09/27/2015 Pt Jps8859 Mod intensity - 2.0-3.0 09/27/2015 Pt Ffm6862 Hi intensity - 3.0-4.0 09/27/2015 Tsh Ord6 hTSH II 0.37 uIU/mL 09/27/2015 Pt Tme4447 PT 27.6 seconds 2015 Pt Hfv2612 INR 2.7 2015 Pt Vpo3610 Low Intensity - 1.5-2.0 2015 Pt Yvb8174 Mod intensity - 2.0-3.0 2015 Pt Huh0031 Hi intensity - 3.0-4.0 2015 %Hba1C Pxw695 % HbA1c 86597-7 6.1 % 06/11/2015 %Hba1C Bsq220 Gluc Ave 128 mg/dL 06/11/2015 Tsh Ord6 hTSH II 0.86 uIU/mL 06/10/2015 Comp Metabolic Pua285 NA 139 mEq/L 06/10/2015 Comp Metabolic Vol271 K 4.1 mEq/L 06/10/2015 Comp Metabolic Qnz289 CL 105 mEq/L 06/10/2015 Comp Metabolic Tmt469 CO2 27.0 mEq/L 06/10/2015 Comp Metabolic Cmg974 AN ION GAP 11 06/10/2015 Comp Metabolic Yyy059 GL UCOSE 127 mg/dL 06/10/2015 Comp Metabolic Znf665 Cr eat 1.0 mg/dL 06/10/2015 Comp Metabolic Frm580 eG FR 59 ml/min/1.73m2 06/10 Comp Metabolic Ufz685 BUN 21 mg/dL 06/10/2015 Comp Metabolic Lcg906 B/ C Ratio 21.2 Ratio 06/10/2015 Comp Metabolic Wnr434 CA LCIUM 9.2 mg/dL 06/10/2015 Comp Metabolic Yqk525 AL K PHOS 87 U/L 06/10/2015 Comp Metabolic Vaf789 T(SGOT) 20 U/L 06/10/2015 Comp Metabolic Osr589 AL T(SGPT) 17 U/L 06/10/2015 Comp Metabolic Ywt181 BI LI T 0.4 mg/dL 06/10/2015 Comp Metabolic Ywg338 AL BUMIN 4.1 g/dL 06/10/2015 Comp Metabolic Jft804 TP RO 7.2 g/dL 06/10/2015 Comp Metabolic Pjk860 GL OB 3.1 g/dL 06/10/2015 Comp Metabolic Izj802 A/ G Ratio 1.3 Ratio 06/10/2015 Comp Metabolic Hat230 Os mo 282 mOsmo 06/10/2015 Lipid Ord30 CHOL 161 mg/dL 06/10/2015 Lipid Ord30 HDL 49.0 mg/dl 06/10/2015 Lipid Ord30 TRIG 208 mg/dL 06/10/2015 Lipid Ord30 LDL 70 mg/dL 06/10/2015 Lipid Ord30 C/HDL 3.3 Ratio 06/10/2015 Cbc With Differential Ord2 WBC 6.4 [...] With Differential Ord2 RDW 15.8 % 06/10/2015 Pt Azd8391 PT 25.0 seconds 04/09/2015 Pt Npn5711 INR 2.4 04/09/2015 Pt Bzp1199 Low Intensity - 1.5-2.0 04/09/2015 Pt Eey6874 Mod intensity - 2.0-3.0 04/09/2015 Pt Eka6112 Hi intensity - 3.0-4.0 04/09/2015 Tsh Ord6 hTSH II 0.65 uIU/mL 01/22/2015 Free T4 Fqa117 FREE T4 1.05 ng/dL 01/22/2015 Pt Snj1533 PT 27.2 seconds 01/22/2015 Pt Esv9847 INR 2.6 01/22/2015 Pt Iww9032 Low Intensity - 1.5-2.0 01/22/2015 Pt Bom8026 Mod intensity - 2.0-3.0 01/22/2015 Pt Foa8725 Hi intensity - 3.0-4.0 01/22/2015 Cbc With [...] Differential Ord2 RDW 15.2 % 01/22/2015 B12 Rzx955 B12 402.00 pg/ml 01/22/2015 Lipid Ord30 CHOL 166 mg/dL 01/22/2015 Lipid Ord30 HDL 48.0 mg/dl 01/22/2015 Lipid Ord30 TRIG 264 mg/dL 01/22/2015 Lipid Ord30 LDL 65 mg/dL 01/22/2015 Lipid Ord30 C/HDL 3.5 Ratio 01/22/2015 Comp Metabolic Csr336 NA 138 mEq/L 01/22/2015 Comp Metabolic Pjk740 K 4.1 mEq/L 01/22/2015 Comp Metabolic Iav664 CL 104 mEq/L 01/22/2015 Comp Metabolic Occ711 CO2 29.0 mEq/L 01/22/2015 Comp Metabolic Byq499 AN ION GAP 9 01/22/2015 Comp Metabolic Eqa339 GL UCOSE 106 mg/dL 01/22/2015 Comp Metabolic Xxp605 Cr eat 0.9 mg/dL 01/22/2015 Comp Metabolic Qqp999 eG FR 63 ml/min/1.73m2 01/22 Comp Metabolic Jcz661 BUN 21 mg/dL 01/22/2015 Comp Metabolic Rbn247 B/ C Ratio 22.3 Ratio 01/22/2015 Comp Metabolic Nra965 CA LCIUM 9.4 mg/dL 01/22/2015 Comp Metabolic Agj163 AL K PHOS 83 U/L 01/22/2015 Comp Metabolic Stb400 T(SGOT) 23 U/L 01/22/2015 Comp Metabolic Brw863 AL T(SGPT) 18 U/L 01/22/2015 Comp Metabolic Lfg699 BI LI T 0.8 mg/dL 01/22/2015 Comp Metabolic Orw146 AL BUMIN 4.2 g/dL 01/22/2015 Comp Metabolic Qom191 TP RO 7.3 g/dL 01/22/2015 Comp Metabolic Mdd413 GL OB 3.1 g/dL 01/22/2015 Comp Metabolic Ior192 A/ G Ratio 1.4 Ratio 01/22/2015 Comp Metabolic Erh383 Os mo 279 mOsmo 01/22/2015 Review of [...] Date URINALYSIS NONAUTO W /O SCOPE CPT-4: 60377 03/05/2017 Vital Signs Date Vital 05/27/2017 Blood Pressure 1: 146/78 Code: 8480-6 BMI: 41.4 Code: 02963-1 Heart Rate 1: 85 bpm Height: 5'1" SpO2: 98% Weight: 219 lbs 02/24/2017 Blood Pressure 1: 138/66 Code: 8480-6 BMI: 41.4 Code: 10960-5 Heart Rate 1: 78 bpm Height: 5'1" SpO2: 97% Weight: 219 lbs 11/02/2016 Blood Pressure 1: 144/72 Code: 8480-6 BMI: 46.1 Code: 30289-6 Heart Rate 1: 78 bpm Height: 5'1" SpO2: 98% Weight: 244 lbs 09/30/2016 Blood Pressure 1: 130/76 Code: 8480-6 BMI: 45.0 Code: 79094-1 Heart Rate 1: 86 bpm Height: 5'1" SpO2: 98% Weight: 238 lbs 09/10/2016 Blood Pressure 1: 136/68 Code: 8480-6 BMI: 46.3 Code: 21334-9 Heart Rate 1: 83 bpm Height: 5'1" SpO2: 98% Weight: 245 lbs 08/20/2016 Blood Pressure 1: 142/78 Code: 8480-6 BMI: 45.3 Code: 90000-8 Heart Rate 1: 84 bpm Height: 5'1" SpO2: 99% Weight: 240 lbs 06/08/2016 Blood Pressure 1: 134/76 Code: 8480-6 BMI: 44.2 Code: 63596-8 Heart Rate 1: 86 bpm Height: 5'1" SpO2: 96% Weight: 234 lbs 04/02/2016 Blood Pressure 1: 142/70 Code: 8480-6 BMI: 44.6 Code: 25895-7 Heart Rate 1: 78 bpm Height: 5'1" SpO2: 97% Weight: 236 lbs 01/14/2016 Blood Pressure 1: 146/72 Code: 8480-6 BMI: 44.2 Code: 64854-5 Heart Rate 1: 86 bpm Height: 5'1" SpO2: 96% Weight: 234 lbs 10/02/2015 Blood Pressure 1: 158/76 Code: 8480-6 BMI: 44.2 Code: 62160-9 Heart Rate 1: 67 bpm Height: 5'1" SpO2: 97% Weight: 234 lbs 07/15/2015 Blood Pressure 1: 200/90 Code: 8480-6 Blood Pressure 1: 148/78 Code: 8480-6 BMI: 44.0 Code: 21446-3 Heart Rate 1: 89 bpm Height: 5'1" SpO2: 97% Weight: 233 lbs 06/10/2015 Blood Pressure 1: 140/82 Code: 8480-6 BMI: 44.0 Code: 46994-6 Heart Rate 1: 78 bpm Height: 5'1" [...] wearing crocs and there was a new austrian on the floor: her foot didn't move [...] Encounters Encounter Performer Loca tion Codes Date ([id number]) [id number] EST. 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 PATIENT, LEVEL III Diagnosis: Pain in right hip[ICD10: M25.551] Nata Almanza MD, [facility] CPT-4: 76718 02/24/2017 ([id number]) 82322 EST. P [facility], LEVEL IV Diagnosis: Essential (primary) hypertension[ICD10: I10] Diagnosis: Localized edema[ICD10: R60.0] Diagnosis: Pain in right hip[ICD10: M25.551] Sarai Almanza MD, [facility] CPT-4: 65170 11/02/2016 ([id number]) 26022 EST. P [facility], LEVEL IV Diagnosis: Essential (primary) hypertension[ICD10: I10] Diagnosis: Localized edema[ICD10: R60.0] Sarai Almanza MD, [facility] CPT-4: 07671 09/30/2016 [id number] EST. PATIENT, LEVEL IV Diagnosis: Localized edema[ICD10: R60.0] Diagnosis: Pain in joints of left hand[ICD10: M25.542] Diagnosis: Pain in joints of right hand[ICD10: M25.541] Nata Almanza MD, [facility] CPT-4: 49703 09/10/2016 44910 EST. PATIENT, LEVEL IV Diagnosis: Localized edema[ICD10: R60.0] Diagnosis: Pain in joints of left hand[ICD10: M25.542] Diagnosis: Pain in joints of right hand[ICD10: M25.541] Diagnosis: Other fatigue[ICD10: R53.83] Nata Almanza MD, [facility] CPT-4: 25559 08/20/2016 10006 EST. 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 PATIENT, LEVEL IV Diagnosis: Other allergic rhinitis[ICD10: J30.89] Diagnosis: Acute laryngopharyngitis[ICD10: J06.0] Nata Almanza MD, [facility] CPT-4: 18879 04/02/2016 14733 EST. PATIENT, LEVEL IV Diagnosis: Left upper quadrant pain[ICD10: R10.12] Nata Almanza MD, [facility] CPT-4: 95053 01/14/2016 [id number] EST. PATIENT, LEVEL IV Diagnosis: Pain in left shoulder[ICD10: M25.512] Diagnosis: Body mass index (BMI) 40.0-44.9, adult[ICD10: Z68.41] Nata Almanza MD, [facility] CPT-4: 66060 10/02/2015 99532 EST. 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 LEVEL 4 Diagnosis: ESSENTIAL HYPERTENSION[ICD9: 401.9] Diagnosis: HYPOTHYROIDISM[ICD9: 244.9] Diagnosis: ENCNTR LONG-RX USE NEC[ICD9: V58.69] Diagnosis: HYPERLIPIDEMIA[ICD9: 272.4] Diagnosis: Vitamin B12 deficiency[ICD9: 266.2] Diagnosis: Status post gastric surgery[ICD9: V45.89] Diagnosis: Snoring[ICD9: 786.09] [facility] CPT-4: 62280 01/22/2015 Plan of Care Planned Activity Notes [...] to medications. 05/27/2017 Appointment: Edna Douglas WPtel: [address] [place], [place] [phone] (30 min) Complex 05/27/2017 Patient Education: Patient [...] Palacios. 02/24/2017 [facility]ment[facility] [phone] [facility] [place] (30 min) Complex 02/24/2017 Patient [...] Chaney. 11/02/2016 Appointment: [phone] [place] (15 min) Moderate 11/02/2016 Patient Education: [...] edema. 09/30/2016 Appointment: Sarai Almanza WPtel: [facility] (15 min) Moderate 09/30/2016 Patient Education: Patient [...] Appointment: Nata Hsu WPtel: [facility] (30 min) Complex 09/10/2016 [...] edema. 08/20/2016 Appointment: Nata Hsu WPtel: [facility] (30 min) Complex 08/20/2016 Patient Education: Patient Medication Summary Completed 08/20/2016 Referral: [facility] Referral Initiated 07/02/2016 Visit Plan: Chronic Anticoagulant [...] 06/08/2016 Care Plan: Referral Order SNOMED-CT : [id number] Pending 06/08/2016 Visit Plan: URI - Pt [...] spray. 04/02/2016 App[facility]ment: [phone] [facility] ([facility] min) Complex 04/02/2016 Patient Education: [...] acute pain 01/14/2016 Appointment: [facility] Douglas [facility] [phone] [phone] [place] (30 min) Complex 01/14/2016 Patient Education: Patient Medication Summary Completed 01/14/2016 Patient Education: Obesity Completed 01/14/2016 Care Plan: BMI Above normal followup DAVID F-MGMT EDUC & TRAIN 1 PT Pending 10/24/2015 Care Plan: X-RAY EXAM OF SHOULDER LOINC : 21427-3 Pending 10/24/2015 Visit Plan: Left shoulder pain [...] Appointment: Edna Douglas [facility]el[phone] (15 min) Moderate 10/02/2015 Patient Education: [...] Appointment: Sarai Almanza WPtel: [facility] (15 min) Moderate 04/22/2015 Visit Plan: Hypertension [...] have surgical fixation - planning occurring at [facility]. Snoring - Sleep apnea symptoms [...] medications. 01/22/2015 Appointment: Sarai Almanza WPtel: [phone] [facility] [place] (S) New Patient 01/22/2015 Patient Education: Patient Medication Summary Completed 01/22/2015 Patient Education: Hypertension Completed 01/22/2015 Referral: [facility] Referral Initiated Instructions Comment . Hypertension - [...] in the nasal steroid allergy spray. . right upper quadra nt pain - [...] to the ER with acute pain . Edema - pt has bee n [...] have surgical fixation - planning occurring at [facility]. Snoring - Sleep apnea symptoms [...] have surgical clearance by Dr. Palacios. . Left shoulder pain - pt states [...]
--- OUTSIDE RECORDS SUMMARY | 2020-01-17 00:07 | XMS REPORT | Continuity of Care Document ---
Author Organization Unknown Address Unknown Phone Unavailable Allergies Active Description Code Type Severity Reaction Onset Reported/Identified Relationship to Patient Clinical Status Yes No Known Drug Allergies [id number] Drug Allergy Unknown N/A 10/09/2013 Medications There is no data. 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 HYPERCOAGULABLE STATE 08/19/2013 BOBBY ZULETA MD Ot 311 DEPRESSIVE DISORDER NEC 08/19/2013 BOBBY ZULETA MD Ot 397.0 TRICUSPID VALVE DISEASE 08/19/2013 BOBBY ZULETA MD Ot 401.9 HYPERTENSION NOS 08/19/2013 BOBBY ZULETA MD Ot 424.0 MITRAL VALVE DISORDER 08/19/2013 BOBBY ZULETA MD Ot 530.81 ESOPHAGEAL REFLUX 08/19/2013 BOBBY ZULETA MD Ot 552.21 OBSTR INCISIONAL HERNIA 08/19/2013 BOBBY ZULETA MD Ot 560.1 PARALYTIC ILEUS 08/19/2013 BOBBY ZULETA MD Ot 781.0 ABN INVOLUN MOVEMENT NEC 08/19/2013 BOBBY ZULETA MD Ot 785.0 TACHYCARDIA NOS 08/19/2013 BOBBY ZULETA MD Ot 786.59 CHEST PAIN NEC 08/19/2013 BOBBY ZULETA MD Ot 997.49 OTHER DIGESTIVE SYSTEM COMPLICATIONS 08/19/2013 BOBBY ZULETA MD Ot V12.51 HX-VENOUS THROMBOSIS EMBOLISM 08/19/2013 BOBBY ZULETA MD Ot 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 08/19/2013 BOBBY ZULETA MD Ot V44.2 ILEOSTOMY STATUS 08/19/2013 BOBBY ZULETA MD Ot V58.61 ANTICOAGULANTS,LT,CURRENT USE 10/12/2013 BOBBY ZULETA MD Ot 244.9 HYPOTHYROIDISM NOS 10/12/2013 BOBBY ZULETA MD Ot 272.4 HYPERLIPIDEMIA NEC/NOS 10/12/2013 BOBBY ZULETA MD Ot 275.2 DIS MAGNESIUM METABOLISM 10/12/2013 BOBBY ZULETA MD Ot 276.51 DEHYDRATION 10/12/2013 BOBBY ZULETA MD Ot 276.8 HYPOPOTASSEMIA 10/12/2013 BOBBY ZULETA MD Ot 289.81 PRIMARY HYPERCOAGULABLE STATE 10/12/2013 BOBBY ZULETA MD Ot 397.0 TRICUSPID VALVE DISEASE 10/12/2013 BOBBY ZULETA MD Ot 401.9 HYPERTENSION NOS 10/12/2013 BOBBY ZULETA MD Ot 424.0 MITRAL VALVE DISORDER 10/12/2013 BOBBY ZULETA MD Ot 458.9 HYPOTENSION NOS 10/12/2013 BOBBY ZULETA MD Ot 556.9 ULCERATIVE COLITIS, UNSPECIFIED 10/12/2013 BOBBY ZULETA MD Ot 783.21 LOSS OF WEIGHT 10/12/2013 BOBBY ZULETA MD Ot 786.59 CHEST PAIN NEC 10/12/2013 BOBBY ZULETA MD Ot 787.01 NAUSEA WITH VOMITING 10/12/2013 BOBBY ZULETA MD Ot V12.51 HX-VENOUS THROMBOSIS EMBOLISM 10/12/2013 BOBBY ZULETA MD Ot V58.61 ANTICOAGULANTS,LT,CURRENT USE 08/13/2014 TERRY VINSON Ot 272.4 08/13/2014 TERRY VINSON Ot 278.00 08/13/2014 TERRY VINSON Ot 401.9 08/13/2014 TERRY VINSON Ot 786.50 08/13/2014 Ot V76.12 08/13/2014 TERRY VINSON Ot 272.4 08/13/2014 TITUS-RASHAAD PA, TERRY K Ot 278.00 08/13/2014 TITUS-RASHAAD PA, TERRY K Ot 401.9 08/13/2014 TITUS-RASHAAD PA, TERRY K Ot 786.50 11/13/2014 Ot 459.89 11/13/2014 Ot 729.81 11/13/2014 Ot V58.61 11/13/2014 Ot V76.12 11/13/2014 Ot V76.12 11/13/2014 TITUS-RASHAAD PA, TERRY K Ot 272.4 11/13/2014 TITUS-RASHAAD PA, TERRY K Ot 278.00 11/13/2014 TITUS-RASHAAD PA, TERRY K Ot 401.9 11/13/2014 TITUS-RASHAAD PA, TERRY K Ot 786.50 11/13/2014 TITUS-RASHAAD PA, TERRY K Ot 272.4 11/13/2014 TITUS-RASHAAD PA, TERRY K Ot 278.00 11/13/2014 TITUS-RASHAAD PA, TERRY K Ot 401.9 11/13/2014 TITUS-RASHAAD PA, TERRY K Ot 786.50 04/19/2015 TITUS-RASHAAD PA, TERRY K Ot 272.4 04/19/2015 TITUS-RASHAAD PA, TERRY K Ot 278.00 04/19/2015 TITUS-RASHAAD PA, TERRY K Ot 401.9 04/19/2015 TITUS-RASHAAD PA, TERRY K Ot 786.50 04/23/2015 KENNETH JIMENEZ HEEL SLUGGER Ot Z12.31 04/24/2015 KENNETH JIMENEZ HEEL SLUGGER Ot Z12.31 04/24/2015 TITUS-RASHAAD PA, TERRY K Ot 272.4 04/24/2015 TITUS-RASHAAD PA, TERRY K Ot 278.00 04/24/2015 TITUS-RASHAAD PA, TERRY K Ot 401.9 04/24/2015 TITUS-RASHAAD PA, TERRY K Ot 786.50 04/24/2015 KENNETH JIMENEZ HEEL SLUGGER Ot Z12.31 05/02/2015 KENNETH JIMENEZ HEEL SLUGGER Ot Z12.31 06/10/2015 TITUS-RASHAAD PA, TERRY K Ot 272.4 06/10/2015 TITUS-RASHAAD PA, TERRY K Ot 278.00 06/10/2015 FAM PA, TERRY Carissa Ot 401.9 06/10/2015 FAM GARDNER, TERRY K Ot 786.50 06/10/2015 KENNETH JIMENEZ HEEL SLUGGER Ot Z12.31 06/24/2015 FAM GARDNER, TERRY Ferrer Ot 272.4 06/24/2015 FAM GARDNER, TERRY Ferrer Ot 278.00 06/24/2015 FAM PA, TERRY Ferrer Ot 401.9 06/24/2015 FAM GARDNER, TERRY Carissa Ot 786.50 06/24/2015 KENNETH JIMENEZ HEEL SLUGGER Ot Z12.31 06/24/2015 KENNETH JIMENEZ HEEL SLUGGER Ot M25.511 06/25/2015 KENNETH JIMENEZ HEEL SLUGGER Ot M25.511 07/03/2015 KENNETH JIMENEZ HEEL SLUGGER Ot M25.511 10/02/2015 Ot M25.512 10/17/2015 Ot M25.512 PA IN IN LEFT SHOULDER 10/28/2015 KALIA HO MD Ot M75.112 INCOMPLETE ROTATR-CUFF TEAR/RUPTR OF L S 11/14/2015 KALIA HO MD Ot M75.112 INCOMPLETE ROTATR-CUFF TEAR/RUPTR OF L S 12/06/2015 GREGORIA VELA MD, FACCP CCDS Ot D68.51 ACTIVATED PROTEIN C RESISTANCE 12/06/2015 GREGORIA VELA MD, FACCP CCDS Ot E78.4 OTHER HYPERLIPIDEMIA 12/06/2015 GREGORIA VELA MD, FACCP CCDS Ot E87.6 HYPOKALEMIA 12/06/2015 GREGORIA VELA MD, FACCP CCDS Ot I10 ESSENTIAL (PRIMARY) HYPERTENSION 12/06/2015 GREGORIA VELA MD, FACCP CCDS Ot R07.89 OTHER CHEST PAIN 12/26/2015 GREGORIA VEAL MD, FACCP CCDS Ot D68.51 ACTIVATED PROTEIN C RESISTANCE 12/26/2015 GREGORIA VELA MD, FACCP CCDS Ot E78.4 OTHER HYPERLIPIDEMIA 12/26/2015 GREGORIA VELA MD, FACCP CCDS Ot E87.6 HYPOKALEMIA 12/26/2015 MIRIAN MD FACC, ALI FACP CCDS Ot I10 ESSENTIAL (PRIMARY) HYPERTENSION 12/26/2015 MIRIAN MD [facility], ALI FACP CCDS Ot R07.89 OTHER CHEST PAIN 12/26/2015 MIRIAN GARIBAY [facility], ALI FACP CCDS Ot D68.51 ACTIVATED PROTEIN C RESISTANCE 12/26/2015 MIRIAN GARIBAY [facility], ALI FACP CCDS Ot E78.4 OTHER HYPERLIPIDEMIA 12/26/2015 MIRIAN GARIBAY [facility], ALI FACP CCDS Ot E87.6 HYPOKALEMIA 12/26/2015 MIRIAN GARIBAY [facility], ALI FACP CCDS Ot I10 ESSENTIAL (PRIMARY) HYPERTENSION 12/26/2015 MIRIAN GARIBAY [facility], ALI FACP CCDS Ot R07.89 OTHER CHEST PAIN 01/22/2016 TAMMI NARAYANAN CONTACT AGENT Ot R10.11 RIGHT UPPER QUADRANT PAIN 01/22/2016 TAMMI NARAYANAN CONTACT AGENT Ot R10.12 LEFT UPPER QUADRANT PAIN 01/23/2016 TAMMI NARAYANAN CONTACT AGENT Ot R07.81 PLEURODYNIA 01/23/2016 TAMMI NARAYANAN CONTACT AGENT Ot R10.12 LEFT UPPER QUADRANT PAIN 01/23/2016 TAMMI NARAYANAN CONTACT AGENT Ot R10.32 LEFT LOWER QUADRANT PAIN 01/23/2016 TAMMI NARAYANAN CONTACT AGENT Ot R07.81 PLEURODYNIA 01/23/2016 TAMMI NARAYANAN CONTACT AGENT Ot R10.12 LEFT UPPER QUADRANT PAIN 01/23/2016 TAMMI NARAYANAN CONTACT AGENT Ot R10.32 LEFT LOWER QUADRANT PAIN 01/31/2016 TERRY VINSON Ot 272.4 HYPERLIPIDEMIA NEC/NOS 01/31/2016 TERRY VINSON Ot 278.00 OBESITY, NOS 01/31/2016 TERRY VINSON Ot 401.9 HYPERTENSION NOS 01/31/2016 TERRY VINSON Ot 786.50 CHEST PAIN NOS 01/31/2016 KENNETH JIMENEZ Ot Z12.31 ENCNTR SCREEN MAMMOGRAM FOR MALIGNANT NE 01/31/2016 KENNETH JIMENEZ Ot M25.511 PAIN IN RIGHT SHOULDER 01/31/2016 KENNETH JIMENEZ Ot M25.511 PAIN IN RIGHT SHOULDER 01/31/2016 Ot M25.512 PA IN IN LEFT SHOULDER 01/31/2016 GEORGIA GARIBAY, KALIA Ndiaye Ot M75.112 INCOMPLETE ROTATR-CUFF TEAR/RUPTR OF L S 01/31/2016 MIRIAN MD FAC, ALI FACP CCDS Ot D68.51 ACTIVATED PROTEIN C RESISTANCE 01/31/2016 MIRIAN MD FAC, ALI FACP CCDS Ot E78.4 OTHER HYPERLIPIDEMIA 01/31/2016 MIRIAN FAC, ALI FACP CCDS Ot E87.6 HYPOKALEMIA 01/31/2016 MIRIAN [facility], ALI FACP CCDS Ot I10 ESSENTIAL (PRIMARY) HYPERTENSION 01/31/2016 MIRIAN MD [facility], ALI FACP CCDS Ot R07.89 OTHER CHEST PAIN 01/31/2016 MIRIAN MD [facility], ALI FACP CCDS Ot D68.51 ACTIVATED PROTEIN C RESISTANCE 01/31/2016 MIRIAN MD FAC, ALI FACP CCDS Ot E78.4 OTHER HYPERLIPIDEMIA 01/31/2016 MIRIAN MD FAC, ALI FACP CCDS Ot E87.6 HYPOKALEMIA 01/31/2016 MIRIAN MD [facility], ALI FACP CCDS Ot I10 ESSENTIAL (PRIMARY) HYPERTENSION 01/31/2016 MIRIAN MD [facility], ALI FACP CCDS Ot R07.89 OTHER CHEST PAIN 01/31/2016 TAMMI NARAYANAN CONTACT AGENT Ot R10.11 RIGHT UPPER QUADRANT PAIN 01/31/2016 TAMMI NARAYANAN CONTACT AGENT Ot R10.12 LEFT UPPER QUADRANT PAIN 01/31/2016 TAMMI NARAYANAN CONTACT AGENT Ot R07.81 PLEURODYNIA 01/31/2016 TAMMI NARAYANAN CONTACT AGENT Ot R10.12 LEFT UPPER QUADRANT PAIN 01/31/2016 TAMMI NARAYANAN CONTACT AGENT Ot R10.32 LEFT LOWER QUADRANT PAIN 02/17/2016 TAMMI NARAYANAN CONTACT AGENT Ot R10.11 RIGHT UPPER QUADRANT PAIN 02/17/2016 TAMMI NARAYANAN CONTACT AGENT Ot R10.12 LEFT UPPER QUADRANT PAIN 02/17/2016 TAMMI NARAYANAN CONTACT AGENT Ot R07.81 PLEURODYNIA 02/17/2016 TAMMI NARAYANAN CONTACT AGENT Ot R10.12 LEFT UPPER QUADRANT PAIN 02/17/2016 TAMMI NARAYANAN CONTACT AGENT Ot R10.32 LEFT LOWER QUADRANT PAIN 11/02/2016 TERRY VINSON Ot 272.4 HYPERLIPIDEMIA NEC/NOS 11/02/2016 TERRY VINSON Ot 278.00 OBESITY, NOS 11/02/2016 TERRY VINSON Ot 401.9 HYPERTENSION NOS 11/02/2016 TERRY VINSON Ot 786.50 CHEST PAIN NOS 11/02/2016 KENNETH JIMENEZ HEEL SLUGGER Ot Z12.31 ENCNTR SCREEN MAMMOGRAM FOR MALIGNANT NE 11/02/2016 KENNETH JIMENEZ HEEL SLUGGER Ot M25.511 PAIN IN RIGHT SHOULDER 11/02/2016 KENNETH JIMENEZ HEEL SLUGGER Ot M25.511 PAIN IN RIGHT SHOULDER 11/02/2016 Ot M25.512 PA IN IN LEFT SHOULDER 11/02/2016 GEORGIA GARIBAY, KALIA Ndiaye Ot M75.112 INCOMPLETE ROTATR-CUFF TEAR/RUPTR OF L S 11/02/2016 MIRIAN RUSSELL, ALI FACP CCDS Ot D68.51 ACTIVATED PROTEIN C RESISTANCE 11/02/2016 MIRIAN GARIBAY FACC, ALI FACP CCDS Ot E78.4 OTHER HYPERLIPIDEMIA 11/02/2016 MIRIAN RUSSELL, ALI FACP CCDS Ot E87.6 HYPOKALEMIA 11/02/2016 MIRIAN RUSSELL, ALI FACP CCDS Ot I10 ESSENTIAL (PRIMARY) HYPERTENSION 11/02/2016 MIRIAN RUSSELL, ALI FACP CCDS Ot R07.89 OTHER CHEST PAIN 11/02/2016 MIRIAN RUSSELL, ALI FACP CCDS Ot D68.51 ACTIVATED PROTEIN C RESISTANCE 11/02/2016 MIRIAN GARIBAY FACC, ALI FACP CCDS Ot E78.4 OTHER HYPERLIPIDEMIA 11/02/2016 MIRIAN RUSSELL, ALI FACP CCDS Ot E87.6 HYPOKALEMIA 11/02/2016 MIRIAN RUSSELL, ALI FACP CCDS Ot I10 ESSENTIAL (PRIMARY) HYPERTENSION 11/02/2016 MIRIAN RUSSELL, ALI FACP CCDS Ot R07.89 OTHER CHEST PAIN 11/02/2016 TAMMI NARAYANAN CONTACT AGENT Ot R10.11 RIGHT UPPER QUADRANT PAIN 11/02/2016 TAMMI NARAYANAN CONTACT AGENT Ot R10.12 LEFT UPPER QUADRANT PAIN 11/02/2016 TAMMI NARAYANAN CONTACT AGENT Ot R07.81 PLEURODYNIA 11/02/2016 TAMMI NARAYANAN CONTACT AGENT Ot R10.12 LEFT UPPER QUADRANT PAIN 11/02/2016 TAMMI NARAYANAN CONTACT AGENT Ot R10.32 LEFT LOWER QUADRANT PAIN 11/18/2016 ALEXANDRA GARIBAY, MEGAN Carvalho Ot M25.551 PAIN IN RIGHT HIP 11/19/2016 TERRY VINSON Ot 272.4 HYPERLIPIDEMIA NEC/NOS 11/19/2016 TERRY VINSON Ot 278.00 OBESITY, NOS 11/19/2016 TERRY VINSON Ot 401.9 HYPERTENSION NOS 11/19/2016 FAM GARDNER TERRY K Ot 786.50 CHEST PAIN NOS 11/19/2016 KENNETH JIMENEZ HEEL SLUGGER Ot Z12.31 ENCNTR SCREEN MAMMOGRAM FOR MALIGNANT NE 11/19/2016 KENNETH JIMENEZ HEEL SLUGGER Ot M25.511 PAIN IN RIGHT SHOULDER 11/19/2016 KENNETH JIMENEZ HEEL SLUGGER Ot M25.511 PAIN IN RIGHT SHOULDER 11/19/2016 Ot M25.512 PA IN IN LEFT SHOULDER 11/19/2016 GEORGIA GARIBAY, KALIA Ndiaye Ot M75.112 INCOMPLETE ROTATR-CUFF TEAR/RUPTR OF L S 11/19/2016 MIRIAN RUSSELL, GREGORIA FACP CCDS Ot D68.51 ACTIVATED PROTEIN C RESISTANCE 11/19/2016 MIRIAN RUSSELL, GREGORIA FACP CCDS Ot E78.4 OTHER HYPERLIPIDEMIA 11/19/2016 MIRIAN GARIBAY FACC, ALI FACP CCDS Ot E87.6 HYPOKALEMIA 11/19/2016 MIRIAN GARIBAY FACC, ALI FACP CCDS Ot I10 ESSENTIAL (PRIMARY) HYPERTENSION 11/19/2016 MIRIAN GARIBAY FACC, ALI FACP CCDS Ot R07.89 OTHER CHEST PAIN 11/19/2016 MIRIAN GARIBAY FACC, ALI FACP CCDS Ot D68.51 ACTIVATED PROTEIN C RESISTANCE 11/19/2016 MIRIAN GARIBAY FACC, ALI FACP CCDS Ot E78.4 OTHER HYPERLIPIDEMIA 11/19/2016 MIRIAN GARIBAY FACC, ALI FACP CCDS Ot E87.6 HYPOKALEMIA 11/19/2016 MIRIAN GARIBAY FACC, ALI FACP CCDS Ot I10 ESSENTIAL (PRIMARY) HYPERTENSION 11/19/2016 MIRIAN GARIBAY FACC, ALI FACP CCDS Ot R07.89 OTHER CHEST PAIN 11/19/2016 TAMMI NARAYANAN CONTACT AGENT Ot R10.11 RIGHT UPPER QUADRANT PAIN 11/19/2016 TAMMI NARAYANAN CONTACT AGENT Ot R10.12 LEFT UPPER QUADRANT PAIN 11/19/2016 TAMMI NARAYANAN CONTACT AGENT Ot R07.81 PLEURODYNIA 11/19/2016 TAMMI NARAYANAN CONTACT AGENT Ot R10.12 LEFT UPPER QUADRANT PAIN 11/19/2016 TAMMI NARAYANAN CONTACT AGENT Ot R10.32 LEFT LOWER QUADRANT PAIN 11/19/2016 ALEXANDRA GARIBAY, MEGAN Carvalho Ot M25.551 PAIN IN RIGHT HIP 11/19/2016 TERRY VINSON Ot 272.4 HYPERLIPIDEMIA NEC/NOS 11/19/2016 TERRY VINSON Ot 278.00 OBESITY, NOS 11/19/2016 TERRY VINSON Ot 401.9 HYPERTENSION NOS 11/19/2016 TERRY VINSON K Ot 786.50 CHEST PAIN NOS 11/19/2016 KENNETH JIMENEZ HEEL SLUGGER Ot Z12.31 ENCNTR SCREEN MAMMOGRAM FOR MALIGNANT NE 11/19/2016 KENNETH JIMENEZ HEEL SLUGGER Ot M25.511 PAIN IN RIGHT SHOULDER 11/19/2016 KENNETH JIMENEZ HEEL SLUGGER Ot M25.511 PAIN IN RIGHT SHOULDER 11/19/2016 Ot M25.512 PA IN IN LEFT SHOULDER 11/19/2016 GEORGIA GARIBAY, KALIA Ndiaye Ot M75.112 INCOMPLETE ROTATR-CUFF TEAR/RUPTR OF L S 11/19/2016 MIRIAN GARIBAY FACC, GREGORIA RUSSELLP CCDS Ot D68.51 ACTIVATED PROTEIN C RESISTANCE 11/19/2016 MIRIAN GARIBAY FACC, GREGORIA FACP CCDS Ot E78.4 OTHER HYPERLIPIDEMIA 11/19/2016 MIRIAN GARIBAY FACC, GREGORIA FACP CCDS Ot E87.6 HYPOKALEMIA 11/19/2016 MIRIAN GARIBAY FACC, GREGORIA FACP CCDS Ot I10 ESSENTIAL (PRIMARY) HYPERTENSION 11/19/2016 MIRIAN GARIBAY FACC, GREGORIA FACP CCDS Ot R07.89 OTHER CHEST PAIN 11/19/2016 MIRIAN GARIBAY FACC, GREGORIA FACP CCDS Ot D68.51 ACTIVATED PROTEIN C RESISTANCE 11/19/2016 MIRIAN GARIBAY FACC, GREGORIA FACP CCDS Ot E78.4 OTHER HYPERLIPIDEMIA 11/19/2016 MIRIAN GARIBAY FACC, GREGORIA FACP CCDS Ot E87.6 HYPOKALEMIA 11/19/2016 MIRIAN GARIBAY FACC, GREGORIA FACP CCDS Ot I10 ESSENTIAL (PRIMARY) HYPERTENSION 11/19/2016 MIRIAN GARIBAY FACC, GREGORIA FACP CCDS Ot R07.89 OTHER CHEST PAIN 11/19/2016 TAMMI NARAYANAN CONTACT AGENT Ot R10.11 RIGHT UPPER QUADRANT PAIN 11/19/2016 TAMMI NARAYANAN CONTACT AGENT Ot R10.12 LEFT UPPER QUADRANT PAIN 11/19/2016 TAMMI NARAYANAN CONTACT AGENT Ot R07.81 PLEURODYNIA 11/19/2016 TAMMI NARAYANAN CONTACT AGENT Ot R10.12 LEFT UPPER QUADRANT PAIN 11/19/2016 TAMMI NARAYANAN CONTACT AGENT Ot R10.32 LEFT LOWER QUADRANT PAIN 11/19/2016 ALEXANDRA GARIBAY, MEGAN Carvalho Ot M25.551 PAIN IN RIGHT HIP 11/20/2016 TERRY VINSON Ot 272.4 HYPERLIPIDEMIA NEC/NOS 11/20/2016 TERRY VINSON Ot 278.00 OBESITY, NOS 11/20/2016 TERRY VINSON Ot 401.9 HYPERTENSION NOS 11/20/2016 TERRY VINSON Ot 786.50 CHEST PAIN NOS 11/20/2016 KENNETH JIMENEZ Ot Z12.31 ENCNTR SCREEN MAMMOGRAM FOR MALIGNANT NE 11/20/2016 KENNETH JIMENEZ Ot M25.511 PAIN IN RIGHT SHOULDER 11/20/2016 KENNETH JIMENEZ HEEL SLUGGER Ot M25.511 PAIN IN RIGHT SHOULDER 11/20/2016 Ot M25.512 PA IN IN LEFT SHOULDER 11/20/2016 GEORGIA GARIBAY, KALIA Ndiaye Ot M75.112 INCOMPLETE ROTATR-CUFF TEAR/RUPTR OF L S 11/20/2016 MIRIAN GARIBAY FACC, GREGORIA FACP CCDS Ot D68.51 ACTIVATED PROTEIN C RESISTANCE 11/20/2016 MIRIAN GARIBAY FACC, GREGORIA FACP CCDS Ot E78.4 OTHER HYPERLIPIDEMIA 11/20/2016 MIRIAN GARIBAY FACC, GREGORIA FACP CCDS Ot E87.6 HYPOKALEMIA 11/20/2016 MIRIAN GARIBAY FACC, GREGORIA FACP CCDS Ot I10 ESSENTIAL (PRIMARY) HYPERTENSION 11/20/2016 MIRIAN RUSSELL, GREGORIA FACP CCDS Ot R07.89 OTHER CHEST PAIN 11/20/2016 MIRIAN GARIBAY FACC, GREGORIA FACP CCDS Ot D68.51 ACTIVATED PROTEIN C RESISTANCE 11/20/2016 MIRIAN GARIBAY FACC, ALI FACP CCDS Ot E78.4 OTHER HYPERLIPIDEMIA 11/20/2016 MIRIAN GARIBAY [facility], ALI FACP CCDS Ot E87.6 HYPOKALEMIA 11/20/2016 MIRIAN RUSSELL, ALI FACP CCDS Ot I10 ESSENTIAL (PRIMARY) HYPERTENSION 11/20/2016 MIRIAN RUSSELL, ALI FACP CCDS Ot R07.89 OTHER CHEST PAIN 11/20/2016 TAMMI NARAYANAN CONTACT AGENT Ot R10.11 RIGHT UPPER QUADRANT PAIN 11/20/2016 TAMMI NARAYANAN CONTACT AGENT Ot R10.12 LEFT UPPER QUADRANT PAIN 11/20/2016 TAMMI NARAYANAN CONTACT AGENT Ot R07.81 PLEURODYNIA 11/20/2016 TAMMI NARAYANAN CONTACT AGENT Ot R10.12 LEFT UPPER QUADRANT PAIN 11/20/2016 TAMMI NARAYANAN CONTACT AGENT Ot R10.32 LEFT LOWER QUADRANT PAIN 11/20/2016 ALEXANDRA GARIBAY, MEGAN Carvalho Ot M25.551 PAIN IN RIGHT HIP 11/24/2016 TERRY VINSON Ot 272.4 HYPERLIPIDEMIA NEC/NOS 11/24/2016 TERRY VINSON Ot 278.00 OBESITY, NOS 11/24/2016 TERRY VINSON Ot 401.9 HYPERTENSION NOS 11/24/2016 TERRY VINSON Ot 786.50 CHEST PAIN NOS 11/24/2016 KENNETH JIMENEZ HEEL SLUGGER Ot Z12.31 ENCNTR SCREEN MAMMOGRAM FOR MALIGNANT NE 11/24/2016 KENNETH JIMENEZ HEEL SLUGGER Ot M25.511 PAIN IN RIGHT SHOULDER 11/24/2016 KENNETH JIMENEZ HEEL SLUGGER Ot M25.511 PAIN IN RIGHT SHOULDER 11/24/2016 Ot M25.512 PA IN IN LEFT SHOULDER 11/24/2016 GEORGIA GARIBAY, KALIA Ndiaye Ot M75.112 INCOMPLETE ROTATR-CUFF TEAR/RUPTR OF L S 11/24/2016 MIRIAN RUSSELL, ALI FACP CCDS Ot D68.51 ACTIVATED PROTEIN C RESISTANCE 11/24/2016 MIRIAN GARIBAY [facility], ALI FACP CCDS Ot E78.4 OTHER HYPERLIPIDEMIA 11/24/2016 MIRIAN GARIBAY [facility], ALI FACP CCDS Ot E87.6 HYPOKALEMIA 11/24/2016 MIRIAN MD [facility], ALI FACP CCDS Ot I10 ESSENTIAL (PRIMARY) HYPERTENSION 11/24/2016 MIRIAN MD [facility], ALI FACP CCDS Ot R07.89 OTHER CHEST PAIN 11/24/2016 MIRIAN MD [facility], ALI FACP CCDS Ot D68.51 ACTIVATED PROTEIN C RESISTANCE 11/24/2016 MIRIAN MD [facility], ALI FACP CCDS Ot E78.4 OTHER HYPERLIPIDEMIA 11/24/2016 MIRIAN MD [facility], ALI FACP CCDS Ot E87.6 HYPOKALEMIA 11/24/2016 MIRIAN GARIBAY [facility], ALI FACP CCDS Ot I10 ESSENTIAL (PRIMARY) HYPERTENSION 11/24/2016 MIRIAN GARIBAY [facility], ALI FACP CCDS Ot R07.89 OTHER CHEST PAIN 11/24/2016 TAMMI NARAYANAN CONTACT AGENT Ot R10.11 RIGHT UPPER QUADRANT PAIN 11/24/2016 TAMMI NARAYNAAN CONTACT AGENT Ot R10.12 LEFT UPPER QUADRANT PAIN 11/24/2016 TAMMI NARAYANAN CONTACT AGENT Ot R07.81 PLEURODYNIA 11/24/2016 TAMMI NARAYANAN CONTACT AGENT Ot R10.12 LEFT UPPER QUADRANT PAIN 11/24/2016 TAMMI NARAYANAN CONTACT AGENT Ot R10.32 LEFT LOWER QUADRANT PAIN 11/24/2016 MEGAN MORRIS MD Ot M25.551 PAIN IN RIGHT HIP 12/17/2016 MEGAN MORRIS MD Ot Z12.31 ENCNTR SCREEN MAMMOGRAM FOR MALIGNANT NE 10/15/2017 TERRY VINSON Ot 272.4 HYPERLIPIDEMIA NEC/NOS 10/15/2017 TERRY VINSON Ot 278.00 OBESITY, NOS 10/15/2017 TERRY VINSON Ot 401.9 HYPERTENSION NOS 10/15/2017 TERRY VINSON Ot 786.50 CHEST PAIN NOS 10/15/2017 KENNETH JIMENEZ Ot Z12.31 ENCNTR SCREEN MAMMOGRAM FOR MALIGNANT NE 10/15/2017 JIMENEZ, KENNETH M HEEL SLUGGER Ot M25.511 PAIN IN RIGHT SHOULDER 10/15/2017 KENNETH JIMENEZ HEEL SLUGGER Ot M25.511 PAIN IN RIGHT SHOULDER 10/15/2017 Ot M25.512 PA IN IN LEFT SHOULDER 10/15/2017 GEORGIA GARIBAY, KALIA Ndiaye Ot M75.112 INCOMPLETE ROTATR-CUFF TEAR/RUPTR OF L S 10/15/2017 MIRIAN GARIBAY FACC, ALI FACP CCDS Ot D68.51 ACTIVATED PROTEIN C RESISTANCE 10/15/2017 MIRIAN MD FACC, ALI FACP CCDS Ot E78.4 OTHER HYPERLIPIDEMIA 10/15/2017 MIRIAN MD FACC, ALI FACP CCDS Ot E87.6 HYPOKALEMIA 10/15/2017 MIRIAN MD FACC, ALI FACP CCDS Ot I10 ESSENTIAL (PRIMARY) HYPERTENSION 10/15/2017 MIRIAN GARIBAY FACC, ALI FACP CCDS Ot R07.89 OTHER CHEST PAIN 10/15/2017 MIRIAN MD FACC, ALI FACP CCDS Ot D68.51 ACTIVATED PROTEIN C RESISTANCE 10/15/2017 MIRIAN GARIBAY FACC, ALI FACP CCDS Ot E78.4 OTHER HYPERLIPIDEMIA 10/15/2017 MIRIAN GARIBAY FACC, ALI FACP CCDS Ot E87.6 HYPOKALEMIA 10/15/2017 MIRIAN GARIBAY FACC, ALI FACP CCDS Ot I10 ESSENTIAL (PRIMARY) HYPERTENSION 10/15/2017 MIRIAN GARIBAY FAC, ALI FACP CCDS Ot R07.89 OTHER CHEST PAIN 10/15/2017 TAMMI NARAYANAN CONTACT AGENT Ot R10.11 RIGHT UPPER QUADRANT PAIN 10/15/2017 TAMMI NARAYANAN CONTACT AGENT Ot R10.12 LEFT UPPER QUADRANT PAIN 10/15/2017 TAMMI NARAYANAN CONTACT AGENT Ot R07.81 PLEURODYNIA 10/15/2017 TAMMI NARAYANAN CONTACT AGENT Ot R10.12 LEFT UPPER QUADRANT PAIN 10/15/2017 TAMMI NARAYANAN CONTACT AGENT Ot R10.32 LEFT LOWER QUADRANT PAIN 10/15/2017 MEGAN MORRIS MD Ot Z12.31 ENCNTR SCREEN MAMMOGRAM FOR MALIGNANT NE 10/15/2017 MEGAN MORRIS MD Ot M25.551 PAIN IN RIGHT HIP 10/19/2017 MEGAN MORRIS MD Ot K46.9 UNSPECIFIED ABDOMINAL HERNIA WITHOUT OBS 10/19/2017 MEGAN MORRIS MD Ot Z93.8 OTHER ARTIFICIAL OPENING STATUS 10/19/2017 MEGAN MORRIS MD Ot Z98.890 OTHER SPECIFIED POSTPROCEDURAL STATES 11/09/2017 MEGAN MORRIS MD Ot K46.9 UNSPECIFIED ABDOMINAL HERNIA WITHOUT OBS 11/09/2017 MEGAN MORRIS MD Ot Z93.8 OTHER ARTIFICIAL OPENING STATUS 11/09/2017 MEGAN MORRIS MD Ot Z98.890 OTHER SPECIFIED POSTPROCEDURAL STATES 01/13/2018 MEGAN MORRIS MD Ot K46.9 UNSPECIFIED ABDOMINAL HERNIA WITHOUT OBS 01/13/2018 MEGAN MORRIS MD Ot Z93.8 OTHER ARTIFICIAL OPENING STATUS 01/13/2018 MEGAN MORRIS MD Ot Z98.890 OTHER SPECIFIED POSTPROCEDURAL STATES Procedures Code Description Performed By Per formed On 53.61 OTHE R OPEN INCISIONAL HERNIA REPAIR WITH 08/10/2013 99.15 PARE NTERAL INFUSION OF CONCENTRATED NUT. 08/14/2013 Results Test Result Range [id number] - 10/18/17 12:00 Serum or plasma urea nitrogen measurement (mass/volume ) 22 mg/dL 7-18 Serum or plasma creatinine measurement (mass/volume) 0.96 mg/dL 0.60-1.30 Serum or plasma urea nitrogen/creatinine mass ratio 23 NRG Serum or plasma creatinine measurement w ith calculation of estimated glomerular filtration rate 57 NRG Encounters ACCT No. Visit Date/Time Discharge Status Pt. Type Provider Facility Loc./Unit Complaint [id number] 03/24/2017 09:16:48 03/24/2017 23:59:5 9 CLS Outpatient [id number] 09/02/2018 13:56:00 019 23:59:59 CLS Preadmit TAMMI NARAYANAN APRN [facility] RAD SCREENING [id number] 01/04/2018 16:50:00 018 23:59:59 CLS Preadmit KENNETH JIMENEZ [facility] RAD SCREENING [id number] 10/18/2017 11:50:00 018 23:59:59 CLS Outpatient MEGAN MORRIS MD [facility] RAD ABD HERNIA [id number] 12/02/2016 10:23:00 23:59:59 CLS Outpatient MEGAN MORRIS MD [facility] RAD SCREENING [id number] 11/02/2016 16:19:00 23:59:59 CLS Outpatient MEGAN MORRIS MD [facility] RAD HIP PAIN (RT HIP) [id number] 01/22/2016 10:56:00 016 23:59:59 CLS Outpatient TAMMI NARAYANAN APRN [facility] RAD L RIB PAIN,LLQ LUQ PAIN [id number] 01/21/2016 08:43:00 016 23:59:59 CLS Outpatient TAMMI NARAYANAN APRN [facility] RAD RT AND LT UPPER QUADREN T PAIN [id number] 12/06/2015 13:53:00 016 23:59:59 CLS Outpatient MIRIAN RUSSELLC, GREGORIA KNAPP CC DS [facility] CARD CHEST DISCOMFORT,HYLP,HYPOKALEMIA,HTN [id number] 12/05/2015 07:40:00 016 23:59:59 CLS Outpatient MIRIAN GARIBAY FACC, GREGORIA KNAPP CC DS [facility] CARD CHEST DISCOMFORT,HLP,HYPOKALEMIA,HTN [id number] 10/24/2015 15:37:00 016 23:59:59 CLS Outpatient KALIA HO MD [facility] RAD RTC TEAR PARTIAL LEFT [id number] 06/24/2015 09:30:00 23:59:59 CLS Outpatient KENNETH JIMENEZP [facility] RAD SHOULDER PAIN P AIN ROM RT [id number] 06/10/2015 09:52:00 23:59:59 CLS Outpatient KENNETH JIMENEZP [facility] RAD RT SHOULDER DEE DEE N [id number] 04/19/2015 11:53:00 23:59:59 CLS Outpatient KENNETH JIMENEZP [facility] RAD SCREENING [id number] 11/22/2013 07:42:00 23:59:59 CLS Outpatient FAM GARDNER, YUSRA Ferrer [facility] CARD CP,HTN,HLP [id number] 10/09/2013 09:54:00 13:05:00 DIS Inpatient BOBBY ZULETA MD [facility] 4TH NAUSEA,DEHYDRAT ION [id number] 08/08/2013 13:45:00 13:31:00 DIS Inpatient BOBBY ZULETA MD [facility] SURGICAL HERNIA,ABD PAIN ,CP [id number] 10/02/2015 09:42:00 Document Registration [id number] 11/13/2014 09:09:00 Document Registration [id number] 11/13/2014 09:09:00 Document Registration [id number] 11/13/2014 09:09:00 Document Registration [id number] 11/13/2014 09:09:00 Document Registration [id number] 11/13/2014 09:09:00 Document Registration [id number] 07/25/2010 11:19:00 Document Registration [id number] 10/19/2009 13:07:00 Document Registration [id number] 10/14/2009 10:54:00 Document Registration [id number] 10/16/2008 10:03:00 Document Registration [id number] 10/20/2007 16:49:00 Document Registration [id number] 06/20/2006 13:18:00 Document Registration
== END 2020-01-16 21:15 | disposition home or self-care (01) ==
LOC: EDUNIT# 19:56 → ER 19:57
DX: S50.11XA Contusion of right forearm, initial encounter (principal); E03.9 Hypothyroidism, unspecified; Z23 Encounter for immunization; Z79.890 Hormone replacement therapy; Z79.01 Long term (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; W23.1XXA Caught, crushed, jammed, or pinched between stationary objects, initial encounter
CPT/HCPCS: 90715; 99284

== ENCOUNTER → 2020-06-03 | Outpatient (CLI) | payer MEDICARE, OTHER | LOC: LABNPT 05:22 | PROVIDERS: ATTEND Family Medicine | DX: J06.9 Acute upper respiratory infection, unspecified (principal); Z20.828 Contact with and (suspected) exposure to other viral communicable diseases | CPT/HCPCS: 87635 ==

== ENCOUNTER 2020-12-15 06:01 | Emergency (ER) | payer MEDICARE, OTHER ==
[~2020-12-15] VITALS: Ht 157 cm; Wt 98.3 kg
--- NOTE | 2020-12-15 06:23 | ED Abdominal Pain ---
General Chief Complaint: - Urinary Stated Complaint: L SIDE PAIN Nursing Triage Note: PT ARRIVES TO ER WITH PELVIC PAIN AND L SIDE AND L BACK PAIN THAT BEGAN AROUND 0400 THIS MORNING. PT STATE SHE HAD A UTI FOR 3 WEEKS Sepsis Screen: No Definite Risk Source of Information: Patient Exam Limitations: No Limitations History of Present Illness Date Seen by Provider: Dec 15, 2020 Time Seen by Provider: 06:10 Initial Comments Patient is a 75-year-old female who presents to the emergency department today with a chief complaint of left flank pain and vaginal pain onset this morning around 430. Patient states that the pain was sudden in onset. It seems to radiate from the left flank down to the left lower quadrant and she states she has vaginal pain that seems to radiate upwards. Patient states she is mildly nauseated. She has a history of ileostomy secondary to ulcerative colitis. She denies any recent fevers or chills. She states she has urinary urgency and is only able to "dribble". She denies dysuria or abnormal vaginal discharge. Patient has not had a hysterectomy. She is never had pain like this before. Nothing makes the pain any better or any worse. She rates the pain anywhere from a "7 to a 10". She states it comes in waves. All other review of systems reviewed and negative except as stated above. Timing/Duration: 1-3 Hours Severity/Quality: Severe, Cramping, Sharp Location: LLQ, Flank (Left) Radiation: Other (Vaginal) Activities at Onset: Activity Associated Symptoms: Nausea/Vomiting (Very mild nausea) Allergies and Home Medications Allergies Coded Allergies: No Known Drug Allergies (Unverified , 10/09/13) Home Medications Allopurinol 300 Mg Tab, 300 MG PO DAILY, (Reported) Clonazepam 0.5 Mg Tablet, 0.5 MG PO BID, (Reported) Cranberry Ext/C/L. Sporogenes 1 Each Tablet, 1 TAB PO DAILY, (Reported) Diclofenac Sod 100 Gm Gel, TOP DAILY PRN for PAIN, (Reported) APPLY TOPICALLY NEEDED FOR PAIN Levothyroxine Sodium 150 Mcg Tablet, 150 MCG PO DAILY, (Reported) Magnesium Oxide 400 Mg Tab, 800 MG PO TIDWM Prescribed by: BOBBY ZULETA on 10/12/13 0808 Ondansetron Hcl 4 Mg Tab, 4 MG SL Q4H PRN for na FOR NAUSEA AND VOMITING Prescribed by: BOBBY ZULETA on 10/12/13807 Potassium Chloride 40 Meq/15 Ml Liqd, 40 MEQ PO DAILY@0700 Prescribed by: BOBBY ZULETA on 10/12/13809 Sucralfate 1 Gm Tab, 1 GM PO BID Prescribed by: BOBBY ZULETA on 10/12/13809 Tolterodine Tartrate 4 Mg Cap, 4 MG PO DAILY, (Reported) Venlafaxine Hcl 75 Mg Cap.sr.24h, 75 MG PO DAILY, (Reported) Verapamil Hcl 240 Mg Tab, 120 MG PO DAILY Prescribed by: BOBBY ZULETA on 10/12/13809 Warfarin Sod 5 Mg Tab, 5 MG PO SUN,MON,WED,FRI, (Reported) TAKES AT BEDTIME Warfarin Sodium 5 Mg Tablet, 2.5 MG PO TUES,THURS,SAT, (Reported) TAKES 1/2 (5MG) TABLET TAKES AT BEDTIME [Sodium Bicarbonate] 650 MG TAB, 1,300 MG PO BID Prescribed by: BOBBY ZULETA on 10/12/13809 Patient Home Medication List Home Medication List Reviewed: Yes Review of Systems Review of Systems Constitutional: see HPI Respiratory: No Symptoms Reported Cardiovascular: No Symptoms Reported Gastrointestinal: Abdominal Pain Genitourinary: Other (Vaginal pain) Musculoskeletal: no symptoms reported Skin: no symptoms reported Psychiatric/Neurological: No Symptoms Reported All Other Systems Reviewed Negative Unless Noted: Yes Past Zyurlfs-Jveqlg-Tvfvcj Hx Patient Social History 2nd Hand Smoke Exposure: No Recent Infectious Disease Expo: No Immunizations Up To Date Date of Influenza Vaccine: Apr 21, 2013 Past Medical History Surgeries: Yes (GANGLION ON WRIST, COLOSTOMY THEN ILEOSTOMY, INCARCERATED HERNIA) Respiratory: No Cardiac: Yes Neurological: No Reproductive Disorders: No Female Reproductive Disorders: Denies Sexually Transmitted Disease: No HIV/AIDS: No Genitourinary: No Gastrointestinal: Yes Abdominal Hernia, Colitis Musculoskeletal: No Endocrine: Yes Hypothyroidsim Loss of Vision: Denies Hearing Impairment: Denies Cancer: Yes Skin Psychosocial: No Integumentary: Yes (BASAL CELL CA BACK, YEAST ABD AND BELOW BREASTS) Blood Disorders: Yes (FACTOR V LEIDEN) Adverse Reaction/Blood Tranf: No Physical Exam Vital Signs Vital Signs - First Documented 12/15/20 06:14 Temp 35.6 Pulse 85 B/P (MAP) 165/84 (111) Pulse Ox 99 Capillary Refill : Less Than 3 Seconds Height/Weight/BMI Height: 5'4.00" Weight: 234lbs. 0.0oz. [id number]; 39.00 BMI Method:Stated General Appearance: WD/WN, moderate distress HEENT: normal ENT inspection, other (Dry oral mucosa) Respiratory: normal breath sounds, no respiratory distress, no accessory muscle use Gastrointestinal: soft, abnormal bowel sounds (Hypoactive bowel sounds), guarding (Voluntary guarding throughout the left flank), tenderness Extremities: normal range of motion, non-tender, normal inspection, no pedal edema, no calf tenderness Neurologic/Psychiatric: alert, normal mood/affect, oriented x 3 Skin: normal color, warm/dry Progress/Results/Core Measures Results/Orders Lab Results Laboratory Tests Test 12/15/20 06:15 12/15/20 06:43 Range/Units White Blood Count 6.4 4.3-11.0 10^3/uL Red Blood Count 4.45 3.80-5.11 10^6/uL Hemoglobin 13.5 11.5-16.0 g/dL Hematocrit 41 35-52 % Mean Corpuscular Volume 92 80-99 fL Mean Corpuscular Hemoglobin 30 25-34 pg Mean Corpuscular Hemoglobin Concent 33 32-36 g/dL Red Cell Distribution Width 13.5 10.0-14.5 % Platelet Count 176 130-400 10^3/uL Mean Platelet Volume 10.3 9.0-12.2 fL Immature Granulocyte % (Auto) 0 % Neutrophils (%) (Auto) 64 42-75 % Lymphocytes (%) (Auto) 20 12-44 % Monocytes (%) (Auto) 11 0-12 % Eosinophils (%) (Auto) 3 0-10 % Basophils (%) (Auto) 2 0-10 % Neutrophils # (Auto) 4.1 1.8-7.8 10^3/uL Lymphocytes # (Auto) 1.3 1.0-4.0 10^3/uL Monocytes # (Auto) 0.7 0.0-1.0 10^3/uL Eosinophils # (Auto) 0.2 0.0-0.3 10^3/uL Basophils # (Auto) 0.1 0.0-0.1 10^3/uL Immature Granulocyte # (Auto) 0.0 0.0-0.1 10^3/uL Prothrombin Time 31.0 H 12.2-14.7 SEC INR Comment 3.0 H 0.8-1.4 Sodium Level 139 135-145 MMOL/L Potassium Level 3.7 3.6-5.0 MMOL/L Chloride Level 105 98-107 MMOL/L Carbon Dioxide Level 22 21-32 MMOL/L Anion Gap 12 5-14 MMOL/L Blood Urea Nitrogen 22 H 7-18 MG/DL Creatinine 1.40 H 0.60-1.30 MG/DL Estimat Glomerular Filtration Rate 37 BUN/Creatinine Ratio 16 Glucose Level 157 H 70-105 MG/DL Calcium Level 9.8 8.5-10.1 MG/DL Urine Color YELLOW Urine Clarity CLEAR Urine pH 5.5 5-9 Urine Specific [place] 1.015 L 1.016-1.022 Urine Protein NEGATIVE NEGATIVE Urine Glucose (UA) NEGATIVE NEGATIVE Urine Ketones NEGATIVE NEGATIVE Urine Nitrite NEGATIVE NEGATIVE Urine Bilirubin NEGATIVE NEGATIVE Urine Urobilinogen 0.2 < = 1.0 MG/DL Urine Leukocyte Esterase TRACE H NEGATIVE Urine RBC (Auto) 1+ H NEGATIVE Urine RBC 5-10 H /HPF Urine WBC 0-2 /HPF Urine Squamous Epithelial Cells 0-2 /HPF Urine Crystals NONE /LPF Urine Bacteria TRACE /HPF Urine Casts NONE /LPF Urine Mucus NEGATIVE /LPF Urine Culture Indicated NO My Orders Orders - ERIC POSADA MD Cbc With Automated Diff (12/15/20 06:16) Protime With Inr (12/15/20 06:16) Basic Metabolic Panel (12/15/20 06:16) Ua Culture If Indicated (12/15/20 06:16) Abdomen/Kub 1view (12/15/20 06:16) Ct Abd/Pelvis Wo(Kidney Stone) (12/15/20 06:16) Ns Iv 1000 Ml (Sodium Chloride 0.9%) (12/15/20 06:30) Fentanyl Inj (Sublimaze Injection) (12/15/20 06:30) Ondansetron Injection (Zofran Injectio (12/15/20 06:30) Morphine Injection (Morphine Injection (12/15/20 06:30) Medications Given in ED Current Medications Medications Dose Ordered Sig/Laura Route Start Time Stop Time Status Last Admin Dose Admin Fentanyl Citrate 50 mcg ONCE ONCE IVP 6/27/21 06:30 12/15/20 06:31 DC 12/15/20 06:22 50 MCG Ondansetron HCl 4 mg ONCE ONCE IVP 12/15/20 06:30 12/15/20 06:31 DC 12/15/20 06:22 4 MG Vital Signs/I&O 12/15/20 06:14 Temp 35.6 Pulse 85 B/P (MAP) 165/84 (111) Pulse Ox 99 2 Blood Pressure Mean: 111 Progress Progress Note : Time: 07:20 Progress Note Reevaluated patient. She is sitting on the bedside commode. Still having urinary urgency. Patient's pain is moderately controlled. Her nausea comes in waves still. Patient is noted to have a 3 to 4 mm stone in the distal left ureter causing mild obstructive uropathy. Other incidental findings on the CT as reported under radiologic imaging. Patient has a large left renal cyst. She is noted to have a increase in her creatinine to 1.4. She is currently receiving 1 L of IV fluids. Patient will be discharged to home on pain medications and with nausea medications. She is advised to strain her urine. She has no signs of concurrent urinary tract infection. Patient will be advised to follow-up with her primary care physician. Return precautions are given. Diagnostic Imaging Diagonstic Imaging: Xray, CT Comments [facility] [place], [place] NAME: IDALIA SAUNDERS [facility] REC#: [id number] PT STATUS: REG ER : 1945 PHYSICIAN: ERIC POSADA MD ADMIT DATE: 12/15/20/ER Draft Date of Exam:12/15/20 CT ABD/PELVIS WO(KIDNEY STONE) EXAMINATION: CT abdomen and pelvis without contrast. TECHNIQUE: Multiple contiguous axial images were obtained through the abdomen and pelvis without the use of intravenous contrast. All CT scans use one or more of the following dose optimizing techniques: automated exposure control, MA and/or KvP adjustment based on patient size and exam type or iterative reconstruction. HISTORY: left flank pain severe COMPARISON: 10/18/2017 FINDINGS: Lung bases: Bibasilar dependent atelectasis. Solid organs: The liver is normal. The gallbladder is normal. There is no biliary ductal dilation. Pancreas is normal. Spleen is normal. Adrenal glands are normal. There is a left renal cyst that requires no follow-up. There is a 0.4 cm calculus of the distal left ureter at the ureterovesicular junction. This results in minimal left hydronephrosis and hydroureter. Bowel: Surgical changes from right lower quadrant ostomy creation. There is no bowel obstruction. There are multiple loops of bowel located within a large right parastomal hernia without obstruction. Peritoneum: There is no intraperitoneal free fluid or free air. No suspicious lymphadenopathy. Vasculature: Calcification of the aorta without aneurysm. Musculoskeletal: Degenerative changes of the spine without suspicious osseous lesion or compression fracture. Surgical changes of right hip arthroplasty. Large right parastomal hernia through a 6.3 cm defect. There is a loculated fluid collection along the left rectus abdominis muscle which measures 6.9 x 3.9 cm. This has been present from the prior study on 10/18/2017. Pelvis: The uterus and adnexa are normal. The urinary bladder is normal. IMPRESSION: 1. A 0.4 cm calculus within the distal left ureter resulting in minimal left hydronephrosis. 2. Large parastomal hernia containing multiple loops of bowel without bowel obstruction. Dictated on workstation # [id number] Dict: 12/15/20 0659 Trans: 12/15/20 0708 SUSAN [id number] Interpreted by: BETZAIDA GOFF DO Electronically signed by: [facility] [place], [place] NAME: IDALIA SAUNDERS Corry [facility] REC#: [id number] PT STATUS: REG ER : 1945 PHYSICIAN: ERIC POSADA MD ADMIT DATE: 12/15/20/ER Draft Date of Exam:12/15/20 ABDOMEN/KUB 1VIEW INDICATION: Left flank pain. COMPARISON: Radiograph of 01/22/2016. CT abdomen and pelvis from 12/15/2020. FINDINGS: There is a 3 mm mineralized focus in the pelvis that may correspond to the distal ureteral stone seen on CT. No other abnormal foci of mineralization outside of the vascular calcification of the right upper quadrant. Nonobstructive bowel gas pattern. Right total hip arthroplasty has no features of complication. Severe osteoarthritis of left hip. IMPRESSION: The 3 mm distal left ureteral stone appears in stable position compared to CT performed concurrently. Dictated on workstation # [id number] Dict: 12/15/20 0700 Trans: 12/15/20 0710 SUSAN [id number] Interpreted by: NOE CLARK MD Electronically signed by: Departure Impression Primary Impression: Ureterolithiasis Disposition: 01 HOME, SELF-CARE Condition: Improved Departure-Patient Inst. Referrals: MEGAN MORRIS MD (PCP/Family) Primary Care Physician Patient Instructions: Kidney Stones in Adults Add. Discharge Instructions: Drink plenty of fluids to stay well-hydrated. You can take [id number] Tylenol and I have given you a prescription for hydrocodone. Do not take the hydrocodone with the Tylenol as the hydrocodone contains Tylenol. You can take the prescription medications 1 every 4-6 hours as needed for severe pain. Strain your urine until you passed your kidney stone. I have also given your prescription for nausea medications you can take this 1 every 8 hours as needed for nausea and vomiting. You do have a mild decrease in overall kidney function. You will need to follow-up with your primary care physician within the week and have your kidney function rechecked. Come back to the emergency room for any new, concerning or emergent complaints. Scripts Hydrocodone/Acetaminophen (Hydrocodone-Acetamin 5-325 mg) 1 Each Tablet 1 TAB PO Q6H PRN for PAIN-MODERATE (5-7), #15 TAB Prov: ERIC POSADA MD 12/15/20 Ondansetron (Ondansetron Odt) 4 Mg Tab.rapdis 4 MG PO Q8H PRN for NAUSEA/VOMITING, #15 TAB 0 Refills Prov: ERIC POSADA MD 12/15/20 Copy Copies To 1: MEGAN MORRIS MD, KATHRYN M MD Dec 15, 2020 06:23
[2020-12-15 06:26] LABS: BASOPHILS # (AUTO) 0.1 10^3/uL (0.0-0.1); BASOPHILS % (AUTO) 2 % (0-10); EOSINOPHILS # (AUTO) 0.2 10^3/uL (0.0-0.3); EOSINOPHILS % (AUTO) 3 % (0-10); HEMATOCRIT 41 % (35-52); HEMOGLOBIN 13.5 g/dL (11.5-16.0); LYMPHOCYTES # (AUTO) 1.3 10^3/uL (1.0-4.0); LYMPHOCYTES % (AUTO) 20 % (12-44); MEAN CORPUSCULAR HEMOGLOBIN 30 pg (25-34); MEAN CORPUSCULAR HGB CONC 33 g/dL (32-36); MEAN CORPUSCULAR VOLUME 92 fL (80-99); MEAN PLATELET VOLUME 10.3 fL (9.0-12.2); MONOCYTES # (AUTO) 0.7 10^3/uL (0.0-1.0); MONOCYTES % (AUTO) 11 % (0-12); NEUTROPHILS # (AUTO) 4.1 10^3/uL (1.8-7.8); NEUTROPHILS % (AUTO) 64 % (42-75); PLATELET COUNT 176 10^3/uL (130-400); WHITE BLOOD COUNT 6.4 10^3/uL (4.3-11.0)
[2020-12-15 06:29] LABS: POTASSIUM 3.7 MMOL/L (3.6-5.0)
[2020-12-15] MEDS ORDERED: fentaNYL INJ 100 MCG/2 ML AMP IVP ONE (06:30)
[2020-12-15] MEDS ORDERED: NS IV 1000 ML 1,000 ML IV SCH (06:30)
[2020-12-15] MEDS ORDERED: ONDANSETRON 4 MG/2 ML (SDV) Z0FRAN IVP ONE (06:30)
[2020-12-15] MEDS ORDERED: morphine INJ 10 MG/ML 1ML (SYR OR VIAL) IVP STA ×2 (06:30→07:35)
[2020-12-15 06:31] LABS: CALCIUM 9.8 MG/DL (8.5-10.1)
[2020-12-15 06:35] LABS: CREATININE SERUM 1.4 MG/DL (0.60-1.30)
[2020-12-15 06:59] LABS: BILIRUBIN,URINE NEGATIVE (NEGATIVE); CLARITY,URINE CLEAR; COLOR,URINE YELLOW; GLUCOSE, URINE (UA) NEGATIVE (NEGATIVE); KETONES,URINE NEGATIVE (NEGATIVE); LEUKOCYTE ESTERASE ,URINE TRACE (NEGATIVE); NITRITE,URINE NEGATIVE (NEGATIVE); PH,URINE 5.5 (5-9); PROTEIN,URINE NEGATIVE (NEGATIVE)
[2020-12-15 07:08] LABS: BACTERIA,URINE TRACE /HPF; SQUAMOUS EPITHELIAL CELL,UR 0-2 /HPF; WBC,URINE 0-2 /HPF
--- NOTE | 2020-12-15 07:09 | Diagnostic Imaging Report ---
EXAMINATION: CT abdomen and pelvis without contrast. TECHNIQUE: Multiple contiguous axial images were obtained through the abdomen and pelvis without the use of intravenous contrast. All CT scans use one or more of the following dose optimizing techniques: automated exposure control, MA and/or KvP adjustment based on patient size and exam type or iterative reconstruction. HISTORY: left flank pain severe COMPARISON: 10/18/2017 FINDINGS: Lung bases: Bibasilar dependent atelectasis. Solid organs: The liver is normal. The gallbladder is normal. There is no biliary ductal dilation. Pancreas is normal. Spleen is normal. Adrenal glands are normal. There is a left renal cyst that requires no follow-up. There is a 0.4 cm calculus of the distal left ureter at the ureterovesicular junction. This results in minimal left hydronephrosis and hydroureter. Bowel: Surgical changes from right lower quadrant ostomy creation. There is no bowel obstruction. There are multiple loops of bowel located within a large right parastomal hernia without obstruction. Peritoneum: There is no intraperitoneal free fluid or free air. No suspicious lymphadenopathy. Vasculature: Calcification of the aorta without aneurysm. Musculoskeletal: Degenerative changes of the spine without suspicious osseous lesion or compression fracture. Surgical changes of right hip arthroplasty. Large right parastomal hernia through a 6.3 cm defect. There is a loculated fluid collection along the left rectus abdominis muscle which measures 6.9 x 3.9 cm. This has been present from the prior study on 10/18/2017. Pelvis: The uterus and adnexa are normal. The urinary bladder is normal. IMPRESSION: 1. A 0.4 cm calculus within the distal left ureter resulting in minimal left hydronephrosis. 2. Large parastomal hernia containing multiple loops of bowel without bowel obstruction. Dictated by: Dictated on workstation # [id number]
--- NOTE | 2020-12-15 07:10 | Diagnostic Imaging Report ---
INDICATION: Left flank pain. COMPARISON: Radiograph of 01/22/2016. CT abdomen and pelvis from 12/15/2020. FINDINGS: There is a 3 mm mineralized focus in the pelvis that may correspond to the distal ureteral stone seen on CT. No other abnormal foci of mineralization outside of the vascular calcification of the right upper quadrant. Nonobstructive bowel gas pattern. Right total hip arthroplasty has no features of complication. Severe osteoarthritis of left hip. IMPRESSION: The 3 mm distal left ureteral stone appears in stable position compared to CT performed concurrently. Dictated by: Dictated on workstation # [id number]
[2020-12-15] MEDS ORDERED: ACHD5005 PO (07:26)
[2020-12-15] MEDS ORDERED: ONDA4TAB11 PO (07:26)
[2020-12-15 08:22] VITALS: BP 178/81
== END 2020-12-15 08:26 | disposition home or self-care (01) ==
LOC: EDUNIT# 06:01 → ER 06:02
DX: N13.2 Hydronephrosis with renal and ureteral calculous obstruction (principal); E03.9 Hypothyroidism, unspecified; Z79.890 Hormone replacement therapy; Z79.899 Other long term (current) drug therapy; Z79.01 Long term (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
CPT/HCPCS: 36415; 74018; 74176; 80048; 81000; 85025; 85610; 96361; 96374; 96375; 96376

== ENCOUNTER → 2020-12-19 | Outpatient (CLI) | payer MEDICARE, OTHER ==
[~2020-12-19] MED LIST changes: +ACHD5005 PO; +ONDA4TAB11 PO
== END ==
LOC: LAB 13:45
PROVIDERS: ATTEND Nurse Practitioner Family
DX: N20.0 Calculus of kidney (principal)

== ENCOUNTER → 2021-05-06 | Outpatient (CLI) | payer MEDICARE, OTHER ==
--- NOTE | 2021-05-06 09:21 | Diagnostic Imaging Report ---
INDICATION: Post menopausal state, screening for osteoporosis. COMPARISON: 01/12/2003 FINDINGS: AP Spine L1-L4: [BMD (g/cm2): 1.232] [T-Score: 0.3] [Z-Score: 0.9] [BMD Previous: 1.356] [BMD % Change: -9.1] LT Hip Neck: [BMD (g/cm2): 0.811] [T-Score: -1.6] [Z-Score: -0.4] LT Hip Total: [BMD (g/cm2):0.975] [T-Score:-0.3] [Z-Score: 0.7] [BMD Previous: 0.976] [BMD % Change: -16.9] RT Hip Neck: [BMD (g/cm2):na] [T-Score:na] [Z-Score:na] RT Hip Total: [BMD (g/cm2):na] [T-score:na] [Z-Score:na] [BMD Previous:na] [BMD % Change:na] *Indicates significant change from prior examination based on 95% confidence level. World Health Organization criteria for BMD interpretation classify patients as Normal (T-score at or above -1.0), Osteopenic (T-score between -1.0 and -2.5) or Osteoporotic (T-score at or below -2.5). LIMITATIONS AND MODIFICATION: The right hip was not evaluated secondary to postsurgical changes. FRACTURE RISK (FRAX SCORE): The ten year probability of (%): Major Osteoporotic Fracture: [16.4] Hip Fracture: [3.2] IMPRESSION: 1. Osteopenia (Low bone mass). 2. No significant change in bone mineral density since prior examination. 3. See below National Osteoporosis Foundation guidelines on when to potentially initiate pharmacologic therapy. Based on the National Osteoporosis Foundation Guidelines, pharmacologic treatment should be initiated in any of the following, unless clinical conditions suggest otherwise: * Any patient with prior fragility fracture of the hip or vertebrae. A spine fracture indicates 5X risk for subsequent spine fracture and 2X risk for subsequent hip fracture. * Osteoporosis (T-score <-2.5). * Postmenopausal women and men age 50 and older with low bone mass/osteopenia (T-score between -1.0 and -2.5) by DXA and 10-year major osteoporotic fracture greater than 20% or a 10-year probability of hip fracture greater than 3%. These fracture risks are supplied above in the FRAX score, if applicable. * Clinician judgement and/or patient preferences may indicate treatment for people with 10-year fracture probabilities above or below these levels. Dictated by: Dictated on workstation # [id number]
--- NOTE | 2021-05-06 12:27 | Diagnostic Imaging Report ---
INDICATION: Routine screening. COMPARISON: 12/02/2016 and 04/19/2015. TECHNIQUE: 2D and 3D bilateral screening mammography was performed with CAD. FINDINGS: Scattered fibroglandular densities are identified bilaterally. The overall parenchymal pattern is stable. There are scattered benign calcifications. No mass or malignant-appearing microcalcifications are seen. The axillae are unremarkable. IMPRESSION: No mammographic features suspicious for malignancy are identified. ACR BI-RADS Category 2: Benign findings. Result letter will be mailed to the patient. Note: At least 10% of breast cancer is not imaged by mammography. Dictated by: Dictated on workstation # [id number]
== END ==
LOC: RAD 08:00
PROVIDERS: ATTEND Family Medicine
DX: Z12.31 Encounter for screening mammogram for malignant neoplasm of breast (principal); Z13.820 Encounter for screening for osteoporosis; M85.80 Other specified disorders of bone density and structure, unspecified site; Z78.0 Asymptomatic menopausal state
CPT/HCPCS: 77063; 77067; 77080

== ENCOUNTER 2021-09-03 05:33 | Outpatient (RCR) | payer MEDICARE, OTHER ==
[~2021-09-03] VITALS: Ht 157.5 cm; Wt 98.0 kg
[2021-09-03] MEDS ORDERED: CYAN250014 PO (19:06)
[2021-09-03] MEDS ORDERED: FLUT9.9S NS (19:06)
[2021-09-03] MEDS ORDERED: CALC-250 PO (19:06)
[2021-09-03] MEDS ORDERED: ASPI-999 PO (19:06)
[2021-09-03] MEDS ORDERED: LEVO125C4 PO (19:06)
[2021-09-03] MEDS ORDERED: CLOP75TA69 PO (19:06)
[2021-09-03] MEDS ORDERED: PEDI18TA2 PO (19:06)
[2021-09-03] MEDS ORDERED: ASCO500T16 PO (19:06)
[2021-09-03] MEDS ORDERED: NF-SODBICA PO (19:06)
[2021-09-03] MEDS ORDERED: ATEN100T PO (19:06)
[2021-09-03] MEDS ORDERED: OMEP20TA7 PO (19:06)
[2021-09-03] MEDS ORDERED: FURO20TA4 PO (19:06)
[2021-09-03] MEDS ORDERED: TURM500C4 PO (19:06)
[2021-09-03] MEDS ORDERED: SPIR25TA5 PO (19:06)
[2021-09-03] MEDS ORDERED: OMG1KC PO (19:06)
[2021-09-03] MEDS ORDERED: ATOR40TA70 PO (19:06)
[2021-09-03] MEDS ORDERED: MAGN400T39 PO (19:06)
[2021-09-03] MEDS ORDERED: POTA-179 PO (19:06)
== END 2021-09-05 08:44 | disposition home or self-care (01) ==
LOC: PREOP 05:33
PROVIDERS: ATTEND Surgery
DX: Z01.818 Encounter for other preprocedural examination (principal)

== ENCOUNTER → 2021-09-07 | Outpatient (CLI) | payer MEDICARE, OTHER ==
[~2021-09-07] MED LIST changes: +ASCO500T16 PO; +ASPI-999 PO; +ATEN100T PO; +ATOR40TA70 PO; +CALC-250 PO; +CLOP75TA69 PO; +CYAN250014 PO; +FAMO-132 PO; +FLUT9.9S NS; +FURO20TA4 PO; +LEVO125C4 PO; +MAGN400T39 PO; +NF-SODBICA PO; +OMEP20TA7 PO; +OMG1KC PO; +PEDI18TA2 PO; +POTA-179 PO; +SPIR25TA5 PO; +TURM500C4 PO
[2021-09-07 15:17] LABS: INR 1.4 (0.8-1.4)
== END ==
LOC: LAB 14:51
PROVIDERS: ATTEND Nurse Practitioner Family
DX: Z51.81 Encounter for therapeutic drug level monitoring (principal); Z79.01 Long term (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
CPT/HCPCS: 36415; 85610

== ENCOUNTER 2021-09-10 10:00 | Day surgery (SDC) | payer MEDICARE, OTHER ==
[~2021-09-10] VITALS: Ht 152 cm; Wt 98.0 kg
[~2021-09-10 10:00] MED LIST changes: -FAMO-132 PO
[2021-09-10] MEDS ORDERED: LACTATED RINGERS 1,000 ML IV ONE (10:06)
[2021-09-10] MEDS ORDERED: LACTATED RINGERS 1,000 ML IV STA (10:13)
[2021-09-10] MEDS ORDERED: LIDOCAINE JELLY 2% 6 ML SYRINGE MM PRN (10:15)
[2021-09-10] MEDS ORDERED: HURRICAINE EXT TUBE (BENZOCAINE) XX PRN (10:15)
[2021-09-10 10:30] VITALS: BP 159/73
--- NOTE | 2021-09-10 11:34 | Progress Note-Pre Operative ---
Pre-Operative Progress Note H&P Reviewed The H&P was reviewed, patient examined and no changes noted. Date Seen by Provider: Sep 10, 2021 Time Seen by Provider: 11:30 Date H&P Reviewed: Sep 10, 2021 Time H&P Reviewed: 11:30 Pre-Operative Diagnosis: ALKA PANIAGUA MD Sep 10, 2021 11:34
[2021-09-10] MEDS ORDERED: FAMO-132 PO (11:36)
--- NOTE | 2021-09-10 11:36 | Discharge Inst-Surgical ---
D/C Lap Instructions-KIDO New, Converted, or Re-Newed RX: RX on Chart Follow Up Activity as tolerated High Fiber Diet 25g or more per day Avoid Alcohol, Caffeine, Spicy [place] and Acid foods. Drink 64 fluid oz or more of fluids per day. Symptoms to Report: Fever over 101 degree F, Nausea/Vomiting If any problems/questions: Contact your physician or go to Emergency Room ALKA SIEGEL MD Sep 10, 2021 11:36
[2021-09-10] MEDS ORDERED: ONDANSETRON 4 MG (ZOFRAN) ORAL DISSOLVE TAB PO PRN (11:45)
[2021-09-10] MEDS ORDERED: ONDANSETRON 4 MG/2 ML (SDV) Z0FRAN IVP PRN (11:45)
[2021-09-10] MEDS ORDERED: PROPOFOL INJECTION 0 ML IV ONE (12:08)
[2021-09-10] MEDS ORDERED: proPOfol 200 MG/20 ML (DIPRIVAN) VIAL IV ONE (12:15)
[2021-09-10 12:45] VITALS: BP 108/43
--- NOTE | 2021-09-10 12:47 | Anesthesia-General Post-Op ---
MAC Patient Condition Mental Status/LOC: Same as Preop Cardiovascular: Satisfactory Nausea/Vomiting: Absent Respiratory: Satisfactory Pain: Controlled Complications: Absent Post Op Complications Complications None Follow Up Care/Instructions Patient Instructions None needed. Anesthesiology Discharge Order Discharge Order Patient is doing well, no complaints, stable vital signs, no apparent adverse anesthesia problems. No complications reported per nursing. SYED ACKERMAN CRNA Sep 10, 2021 12:47
--- NOTE | 2021-09-10 12:59 | Progress Note-Post Operative ---
Post-Operative Progess Note Surgeon (s)/Cardiopulmonary Technologist (s) Surgeon ALKA SIEGEL MD Cardiopulmonary Technologist: none Pre-Operative Diagnosis GERD Post-Operative Diagnosis reflux esophagitis(grade B), small HH(2cm), mod-severe gastritis. Procedure & Operative Findings Date of Procedure 09/10/21 Procedure Performed/Findings EGD with bx. Anesthesia Type mac Estimated Blood Loss Estimated blood loss (mL): minimal Specimens/Packing Specimens Removed ge jxn, antrum ALKA SIEGEL MD Sep 10, 2021 12:59
[2021-09-10 13:10] VITALS: BP 142/64
--- NOTE | 2021-09-10 17:02 | OPERATIVE REPORT ---
DATE OF SERVICE: 09/10/2021 ATTENDING PRIMARY CARE PHYSICIAN: Sarai Almanza MD PREOPERATIVE DIAGNOSIS: Gastroesophageal reflux disease. POSTOPERATIVE DIAGNOSES: Reflux esophagitis, Hemet grade B, small hiatal hernia 2 cm in size, moderate to severe gastritis. PROCEDURE: EGD with biopsy. SURGEON: Alka Siegel MD. ANESTHESIA: Monitored anesthesia care. ESTIMATED BLOOD LOSS: Minimal. FINDINGS: Same as postoperative diagnoses. DISPOSITION: The patient tolerated the procedure well. INDICATIONS: The patient is a 76-year-old female who has had epigastric burning sensation as well as pain. She has had a long-standing history of gastroesophageal reflux disease and has been on omeprazole 20 mg daily. This has not gone up likely due to the fact that she does have a history of factor V Leiden and is on Plavix and aspirin. DESCRIPTION OF PROCEDURE: The patient was brought to the endoscopy suite, laid in left lateral decubitus position. After adequate IV pain and sedative medications and monitored anesthesia care, the mouthpiece was applied. The endoscope was placed in the mouth, visualizing the pharynx and hypopharyngeal region. Vocal cords, epiglottis and vallecula identified and appeared to be normal. The endoscope was gently intubated the esophageal opening and esophagus insufflated. The endoscope was then advanced to the first, second and third portion of esophagus at the level of the GE junction, a reflux esophagitis, Hemet grade B identified. No ulcers or strictures and a biopsy was taken with forceps with visualization of good hemostasis. The endoscope was then advanced into the stomach and endoscope retroflexed, visualizing a small hiatal hernia approximately 2 cm in size. There was a moderate to severe gastritis towards the stomach antrum. A biopsy was taken of the region to rule out H. pylori with visualization of good hemostasis. The endoscope was then advanced to the pylorus and first and second portion of duodenum, which appeared normal with no ulcerations. The endoscope was slowly withdrawn while taking a second look and suctioning of residual air with no additional findings. The patient tolerated the procedure well. We will recommend the necessary lifestyle and dietary accommodation including cessation of caffeinated beverages as well as spicy, greasy and acidic foods as well as taking small and more frequent meals and avoidance of eating at night. We will also start her on Pepcid 20 mg b.i.d. to be taken on top of the Protonix she is already taking. Job ID: [id number] DocumentID: [id number] Dictated Date: 09/10/2021 12:46:37 Enterprise Software Engineer Date: 09/10/2021 17:02:31 Dictated By: ALKA SIEGEL MD
== END 2021-09-10 13:19 | disposition home or self-care (01) ==
LOC: ENDO 10:00
PROVIDERS: ATTEND Surgery
DX: K21.00 Gastro-esophageal reflux disease with esophagitis, without bleeding (principal); K44.9 Diaphragmatic hernia without obstruction or gangrene; K29.50 Unspecified chronic gastritis without bleeding; D68.51 Activated protein C resistance; Z79.899 Other long term (current) drug therapy; Z79.82 Long term (current) use of aspirin; Z79.02 Long term (current) use of antithrombotics/antiplatelets
CPT/HCPCS: 88305

== ENCOUNTER → 2022-08-13 | Outpatient (CLI) | payer MEDICARE, OTHER ==
[~2022-08-13] MED LIST changes: +CLOP-31 PO; -CLOP75TA69 PO; +FAMO-132 PO; +OMEP20TA56 PO; -OMEP20TA7 PO
--- NOTE | 2022-08-14 11:49 | Diagnostic Imaging Report ---
INDICATION: Routine screening. Comparison is made with prior mammogram from 05/06/2021 and 12/02/2016. 2-D and 3-D bilateral screening mammography was performed with CAD. Scattered fibroglandular densities are identified bilaterally. The parenchymal pattern is stable. No mass or malignant-appearing microcalcifications are seen. There are benign parenchymal and vascular calcifications bilaterally. Axillae are unremarkable. IMPRESSION: No mammographic features suspicious for malignancy are identified. ACR BI-RADS Category 2: Benign findings. Result letter will be mailed to the patient. Note: At least 10% of breast cancer is not imaged by mammography. BI-RADS Category 2 Dictated by: Dictated on workstation # [id number]
== END ==
LOC: RAD 14:18
PROVIDERS: ATTEND Family Medicine
DX: Z12.31 Encounter for screening mammogram for malignant neoplasm of breast (principal)
CPT/HCPCS: 77063; 77067